=== PATIENT | female | born 2000 | race Caucasian/White ===

== ENCOUNTER 2022-12-24 11:29 | Outpatient (OUT) | payer OTHER, SELFPAY ==
[2022-12-24 11:48] VITALS: BP 129/70; PULSE 85; RESP 18
== END 2022-12-24 12:15 | disposition home or self-care (01) ==
LOC: FBCO 11:30 → FBC 11:32
PROVIDERS: PCP Obstetrics & Gynecology; Visit Provider Obstetrics & Gynecology
DX: O36.63X0 Maternal care for excessive fetal growth, third trimester, not applicable or unspecified (principal); Z3A.00 Weeks of gestation of pregnancy not specified
CPT/HCPCS: 59412

== ENCOUNTER 2022-12-24 11:31 | Outpatient (OUT) | payer OTHER, SELFPAY ==
--- NOTE | 2022-12-24 11:34 | US_ITS ---
[address] [address] Patient Name: VINNY HERRERA MRN: [id number] date: 2000 Sex: F Assigned Patient Location: [place] [facility]ion/Order Number: [id number] Exam Date: 12/24/2022 11:50 Report Date: 12/26/2022 10:36 At the request of: BRITT HOLDER Procedure: US OB BPP w non-stress EXAM: US OB BPP w non-stress HISTORY: LARGE FOR GESTATIONAL AGE O36.60X0 COMPARISON: Ultrasound biophysical 12/17/2022 TECHNIQUE: FINDINGS: BREATHING MOVEMENTS: 2.0 GROSS BODY MOVEMENTS: 2.0 TONE: 2.0 QUALITATIVE AMNIOTIC FLUID VOLUME: 2.0 PRESENTATION: CEPHALIC HEART RATE: 142.9 bpm bpm. AMNIOTIC FLUID VOLUME: 17.2 cm GESTATIONAL AGE: 35 weeks 2 days CONCLUSION: Total biophysical profile score 8.0. Electronically authenticated by: LUIS ALFREDO GRANT Date: 12/26/2022 10:36
== END 2022-12-24 11:32 ==
LOC: US 11:33
PROVIDERS: PCP Obstetrics & Gynecology; Visit Provider Obstetrics & Gynecology
DX: O36.63X0 Maternal care for excessive fetal growth, third trimester, not applicable or unspecified (principal); Z3A.00 Weeks of gestation of pregnancy not specified
CPT/HCPCS: 59412; 76818

== ENCOUNTER 2022-12-28 17:44 | Outpatient (OUT) | payer OTHER, SELFPAY ==
[2022-12-28 18:13] VITALS: BP 129/72; PULSE 90
== END 2022-12-28 18:37 | disposition home or self-care (01) ==
LOC: FBC 18:35 → FBCO 12-29 08:45 → FBC 12-29 08:46
PROVIDERS: PCP Obstetrics & Gynecology; Visit Provider Obstetrics & Gynecology
DX: O36.60X0 Maternal care for excessive fetal growth, unspecified trimester, not applicable or unspecified (principal)
CPT/HCPCS: 59025

== ENCOUNTER 2022-12-28 17:45 | Outpatient (OUT) | payer OTHER, SELFPAY ==
[2022-12-28 18:19] VITALS: BP 129/72; PULSE 90; RESP 18; TEMP 36.9
== END 2022-12-28 18:37 ==
LOC: FBCO 17:48
PROVIDERS: PCP Obstetrics & Gynecology; Visit Provider Obstetrics & Gynecology
DX: O36.60X0 Maternal care for excessive fetal growth, unspecified trimester, not applicable or unspecified (principal); O24.419 Gestational diabetes mellitus in pregnancy, unspecified control; Z3A.00 Weeks of gestation of pregnancy not specified
CPT/HCPCS: 59025

== ENCOUNTER 2022-12-31 11:13 | Outpatient (OUT) | payer OTHER, SELFPAY ==
--- NOTE | 2022-12-31 11:15 | US_ITS ---
[address] [address] Patient Name: VINNY HERRERA MRN: [id number] date: 2000 Sex: F Assigned Patient Location: [facility] Current Patient Location: Accession/Order Number: [id number] Exam Date: 12/31/2022 11:14 Report Date: 01/02/2023 15:32 At the request of: BRITT HOLDER Procedure: US OB BPP w non-stress EXAMINATION: US OB BPP w non-stress HISTORY: O36.60X0 LGA COMPARISON: Ultrasound biophysical profile 12/24/2022 TECHNIQUE: Ultrasound biophysical profile was performed in the radiology department. BREATHING MOVEMENTS: 2.0 GROSS BODY MOVEMENTS: 2.0 TONE: 2.0 QUALITATIVE AMNIOTIC FLUID VOLUME: 2.0 PRESENTATION: CEPHALIC HEART RATE: 132.4 bpm bpm. AMNIOTIC FLUID VOLUME: 21.3 cm GESTATIONAL AGE: 36 weeks 2 days CONCLUSION: 1. Total biophysical profile score 8.0. 2. Well distended, prominent urinary bladder 3.9 cm in diameter. Electronically authenticated by: LUIS ALFREDO GRANT Date: 01/02/2023 15:32
[2022-12-31 11:41] VITALS: BP 122/78; PULSE 93
== END 2022-12-31 12:04 | disposition home or self-care (01) ==
LOC: US 11:14 → FBC 11:16
PROVIDERS: PCP Obstetrics & Gynecology; Visit Provider Obstetrics & Gynecology
DX: O36.63X0 Maternal care for excessive fetal growth, third trimester, not applicable or unspecified (principal); Z3A.36 36 weeks gestation of pregnancy
CPT/HCPCS: 59025; 76818

== ENCOUNTER 2023-01-03 15:00 | Outpatient (REF) | payer OTHER, SELFPAY | END 2023-01-03 15:01 | disposition home or self-care (01) | LOC: LAB 15:00 | PROVIDERS: Visit Provider Obstetrics & Gynecology | DX: Z34.93 Encounter for supervision of normal pregnancy, unspecified, third trimester (principal) | CPT/HCPCS: 87081 ==

== ENCOUNTER 2023-01-04 17:56 | Outpatient (OUT) | payer OTHER, SELFPAY ==
[2023-01-04 18:09] VITALS: BP 121/60; PULSE 79
== END 2023-01-04 18:58 | disposition home or self-care (01) ==
LOC: FBCO 17:56 → FBC 17:57
PROVIDERS: Visit Provider Obstetrics & Gynecology
DX: O36.60X0 Maternal care for excessive fetal growth, unspecified trimester, not applicable or unspecified (principal)
CPT/HCPCS: 59025

== ENCOUNTER 2023-01-07 | Outpatient (OUT) | payer OTHER, SELFPAY ==
--- NOTE | 2023-01-07 11:17 | US_ITS ---
[address] [address] Patient Name: VINNY HERRERA MRN: [id number] date: 2000 Sex: F Assigned Patient Location: [facility] Current Patient Location: [place] Accession/Order Number: [id number] Exam Date: 01/07/2023 11:17 Report Date: 01/09/2023 07:13 At the request of: BRITT HOLDER Procedure: US OB growth EXAMINATION: US OB growth HISTORY: LGA COMPARISON: 12/17/2022. 12/11/2019. FINDINGS: Padilla intrauterine gestation presentation: Cephalic Amniotic fluid volume: 18.9 cm, normal. Largest fluid pocket 8.2 cm Heart rate: 44 bpm BPD: 8.7 cm, 35 weeks 1 day, 14% Abdominal circumference: 32.4 cm, 36 weeks 5 days, 15% Abdominal circumference: 36.0 cm, 20 weeks 0 days, greater than 97% Femur length: 7.3 cm, 37 weeks 3 days, 55% Estimated weight: 7 lbs. 11 oz., 84% Clinical age: 37 weeks 2 days Ultrasound JOCELIN: 01/26/2023 Ultrasound age: 37 weeks 2 days Ultrasound JOCELIN: 01/26/2023 IMPRESSION: Abdominal circumference greater than the 97th percentile Estimated weight at the 84th percentile Electronically authenticated by: YELENA CARLOS Date: 01/09/2023 07:13
--- NOTE | 2023-01-07 11:17 | US_ITS ---
[address] [address] Patient Name: VINNY HERRERA MRN: [id number] date: 2000 Sex: F Assigned Patient Location: [facility] [place] [facility] [place]/Order Number: [id number] Exam Date: 01/07/2023 11:17 Report Date: 01/09/2023 07:11 At the request of: BRITT HOLDER Procedure: US OB BPP w non-stress EXAMINATION: US OB BPP w non-stress HISTORY: LGA COMPARISON: No relevant comparison available. TECHNIQUE: Ultrasound biophysical profile was performed in the radiology department. FINDINGS: BREATHING MOVEMENTS: 2.0 GROSS BODY MOVEMENTS: 2.0 TONE: 2.0 QUALITATIVE AMNIOTIC FLUID VOLUME: 2.0 PRESENTATION: CEPHALIC HEART RATE: 137.1 bpm H.B./min AMNIOTIC FLUID VOLUME: 19.7 cm cm GESTATIONAL AGE: 37 weeks 2 days CONCLUSION: Total biophysical profile score: 8.0 Electronically authenticated by: YELENA CARLOS Date: 01/09/2023 07:11
[2023-01-07 12:07] VITALS: BP 132/76; PULSE 99
== END 2023-01-07 12:28 | disposition home or self-care (01) ==
LOC: US 03:51 → FBC 11:14
PROVIDERS: Visit Provider Obstetrics & Gynecology
DX: O36.63X0 Maternal care for excessive fetal growth, third trimester, not applicable or unspecified (principal); Z3A.37 37 weeks gestation of pregnancy
CPT/HCPCS: 59025; 76816; 76818

== ENCOUNTER 2023-01-11 11:14 | Outpatient (OUT) | payer OTHER, SELFPAY ==
[2023-01-11 11:23] VITALS: BP 132/85; PULSE 88
[2023-01-11 11:42] VITALS: BP 127/82; PULSE 84
[2023-01-11 12:16] VITALS: BP 129/82; PULSE 90
[2023-01-11 12:26] LABS: Bilirubin Urine NEGATIVE (NEGATIVE); Blood Urine NEGATIVE (NEGATIVE); Clarity Urine CLEAR (CLEAR); Color Urine LT. YELLOW (YELLOW); Glucose Urine UA NEGATIVE (NEGATIVE); Ketones Urine NEGATIVE (NEGATIVE); Leukocyte Esterase Urine SMALL (NEGATIVE); Nitrite Urine NEGATIVE (NEGATIVE); Protein Urine NEGATIVE (NEG/TRACE); Specific Gravity Urine <=1.005 (1.005-1.025); Urobilinogen Urine 0.2 EU/dL (0.2-1.0)
[2023-01-11 12:41] LABS: Bacteria Urine SMALL #/HPF (NONE SEEN); Crystals Seen? None Seen #/HPF (None Seen); Mucus Urine NONE SEEN (NONE SEEN); Squamous Epithelial Cell Urine FEW #/LPF (NONE/RARE)
[2023-01-11 12:42] LABS: Cast Seen? NONE SEEN #/LPF (NONE SEEN); Sperm Urine SEEN; Urine Culture Indicated YES
== END 2023-01-11 12:42 | disposition home or self-care (01) ==
LOC: FBCO 11:16 → FBC 11:17 → FBCO 11:26 → FBC 12:01
PROVIDERS: Visit Provider Obstetrics & Gynecology
DX: O36.63X0 Maternal care for excessive fetal growth, third trimester, not applicable or unspecified (principal)
CPT/HCPCS: 59025; 81001; 87086

== ENCOUNTER 2023-01-14 11:00 | Outpatient (OUT) | payer OTHER, SELFPAY ==
--- NOTE | 2023-01-14 11:30 | US_ITS ---
[address] [address] Patient Name: VINNY HERRERA MRN: [id number] date: 2000 Sex: F Assigned Patient Location: US Current Patient Location: [place] Accession/Order Number: [id number] Exam Date: 01/14/2023 11:30 Report Date: 01/16/2023 07:56 At the request of: BRITT HOLDER Procedure: US OB BPP w non-stress EXAMINATION: US OB BPP w non-stress HISTORY: LARGE FOR GESTATIONAL AGE O36.60X0 COMPARISON: No relevant comparison available. TECHNIQUE: Ultrasound biophysical profile was performed in the radiology department. FINDINGS: BREATHING MOVEMENTS: 2.0 GROSS BODY MOVEMENTS: 2.0 TONE: 2.0 QUALITATIVE AMNIOTIC FLUID VOLUME: 2.0 PRESENTATION: CEPHALIC HEART RATE: 150.8 bpm H.B./min AMNIOTIC FLUID VOLUME: 18.6 cm cm GESTATIONAL AGE: 38 weeks 2 days CONCLUSION: Total biophysical profile score: 8.0 Electronically authenticated by: YELENA CARLOS Date: 01/16/2023 07:56
[2023-01-14 12:12] VITALS: BP 134/85; PULSE 96
== END 2023-01-14 12:42 | disposition home or self-care (01) ==
LOC: US 11:30 → FBC 11:31
PROVIDERS: Visit Provider Obstetrics & Gynecology
DX: O36.60X0 Maternal care for excessive fetal growth, unspecified trimester, not applicable or unspecified (principal)
CPT/HCPCS: 59025; 76818

== ENCOUNTER 2023-01-16 14:47 | Outpatient (OUT) | payer OTHER, SELFPAY ==
[2023-01-16 15:23] VITALS: BP 136/85; PULSE 100
== END 2023-01-16 15:30 | disposition home or self-care (01) ==
LOC: FBCO 14:48 → FBC 14:50
PROVIDERS: Visit Provider Obstetrics & Gynecology
DX: O36.60X0 Maternal care for excessive fetal growth, unspecified trimester, not applicable or unspecified (principal)
CPT/HCPCS: 59025

== ENCOUNTER 2023-01-18 11:45 | Outpatient (OUT) | payer OTHER, SELFPAY ==
[2023-01-18 11:57] VITALS: BP 140/82; PULSE 83
[2023-01-18 12:25] VITALS: BP 139/83; PULSE 92
== END 2023-01-18 12:28 | disposition home or self-care (01) ==
LOC: FBCO 11:51 → FBC 11:52
PROVIDERS: Visit Provider Obstetrics & Gynecology
DX: O36.63X0 Maternal care for excessive fetal growth, third trimester, not applicable or unspecified (principal); Z3A.00 Weeks of gestation of pregnancy not specified
CPT/HCPCS: 59025

== ENCOUNTER 2023-01-19 05:13 | Inpatient (IN) | payer OTHER, SELFPAY ==
[2023-01-19] VITALS (89 sets, daily range): BP systolic 125–155; BP diastolic 63–100; PULSE 67–111; RESP 16–18; TEMP 36.3–36.9; O2SAT 98
[2023-01-19 05:52] LABS: Glucometer 141 mg/dL (74-106)
[2023-01-19 06:00] LABS: Hematocrit 29.3 % (36.0-48.0); Hemoglobin 9.5 g/dL (12.0-16.0); Mean Corpuscular HGB Conc 32.4 g/dL (29.9-35.2); Mean Corpuscular Hemoglobin 26.8 pg (26.7-34.0); Mean Corpuscular Volume 82.5 fL (81.0-99.0); Mean Platelet Volume 9.1 fL (9.5-13.5); Platelet Count 427 10^3/uL (150-450); Red Blood Count 3.55 10^6/uL (4.20-5.40); Red Cell Distribution Width 14.1 % (11.0-15.0); White Blood Count 10.2 10^3/uL (4.0-11.0)
[2023-01-19 06:29] LABS: Amphetamine Screen Urine NEGATIVE (NEGATIVE); Barbiturates Screen Urine NEGATIVE (NEGATIVE); Benzodiazepines Screen Urine NEGATIVE (NEGATIVE); Cannabinoid Screen Urine NEGATIVE (NEGATIVE); Cocaine Screen Urine NEGATIVE (NEGATIVE); Methadone Screen Urine NEGATIVE (NEGATIVE); Methamphetamines Screen Urine NEGATIVE (NEGATIVE); Opiate Screen Urine NEGATIVE (NEGATIVE); Oxycodone Screen Urine NEGATIVE (NEGATIVE); Phencyclidine Screen Urine NEGATIVE (NEGATIVE); Tricyclic Antidepressant Urine NEGATIVE (NEGATIVE)
[2023-01-19 06:30] LABS: Buprenorphine Screen Urine NEGATIVE (NEGATIVE)
[2023-01-19] MEDS: OXYTOCIN 10 UNIT in 0.9 % SODIUM CHLORIDE 500 ML 6.012 UNIT IV (06:36)
[2023-01-19] MEDS: 0.9 % SODIUM CHLORIDE 1,000 ML 1000 ML IV (06:37)
--- NOTE | 2023-01-19 11:47 | OP_ITS ---
OPERATION DATE: ??01/19/2023 PROCEDURE:? Primary low transverse section. PREOPERATIVE DIAGNOSIS:? 1.? Intrauterine at 39 weeks. 2.? Failure to dilate. 3.? Failure to induce. POSTOPERATIVE DIAGNOSIS: 1.? Intrauterine at 39 weeks. 2.? Failure to dilate. 3.? Failure to induce. ANESTHESIA:? Epidural with Duramorph. SURGEON:? Mukul Foy D.O. MEAT PUMPER:? JOVAN Bangura URINE OUTPUT:? Yellow and clear. BLOOD LOSS:? 700 mL. FINDINGS:? Viable female.? Apgars and weight unknown at this time. SPECIMEN:? Placenta. PROCEDURE:? Patient was taken back to the Operating Room where she was given a spinal anesthesia with Duramorph without difficulty. She was prepped and draped in the normal sterile fashion. A Pfannenstiel skin incision was then made 2 cm above the symphysis pubis and carried down to underlying rectus fascia using a Bovie. The fascia was incised in the midline and extended laterally using Yusuf scissors. Two Jyoti clamps were placed on the superior aspect of the fascia and dissected off the underlying rectus muscles. The same was performed on the inferior aspect as well. The muscles were then in the midline. Peritoneum was identified and entered bluntly. The peritoneum was then extended superiorly and inferiorly with good visualization of the bladder. The bladder blade was inserted. A low transverse incision was made on the patient's uterus and extended laterally digitally. The was then delivered atraumatically after the bladder blade was removed in the cephalic position. The cord was clamped and cut. Cord blood was obtained. The was handed off to awaiting team. The patient's placenta was spontaneously delivered. The uterus was then exteriorized. The uterus was cleared of all clots and debris. The bladder blade was reinserted. The patient's uterine incision was closed using #0 Vicryl in a running lock fashion. Excellenthemostasis was assured. The uterus was then returned to the patient's abdomen. The patient's abdomen was copiously irrigated using warm saline. Peritoneal gutters were cleared of all clots and debris. Again excellent hemostasis was assured. The patient's peritoneum was closed using 3-0 Vicryl in a running fashion. The patient's fascia was closed using #0 Vicryl in a running fashion. The patient's skin was closed using 4-0 Vicryl subcuticularly. The patient tolerated the procedure well. Sponge, lap, and needle counts were correct x2. The patient was taken to the Recovery Room in stable condition. ROZINA
[2023-01-19] MEDS: 0.9 % SODIUM CHLORIDE 1,000 ML 125 ML IV (13:30)
[2023-01-19] MEDS: NALBUPHINE HCL 10 MG/ML AMPULE IV (15:59)
[2023-01-19] MEDS: ONDANSETRON 4 MG RAPDIS TABLET SL (16:04)
--- NOTE | 2023-01-19 19:27 | W.PC.ACHO ---
Registration Status: ADM IN Primary Language: Bahraini Preferred Language: Bahraini Active Medications Generic Name Dose Route Start Last Admin Trade Name Nikoq PRN Reason Stop Dose Admin Carboprost Tromethamine 250 mcg 01/19/23 05:20 Carboprost Tromethamine 250 Mcg/Ml 1 Ml Vial IM Q15M PRN Bleeding Diphenhydramine HCl 25 mg 01/19/23 12:54 Diphenhydramine Hcl 50 Mg/Ml (1ml) Vial IV Q6H PRN Itching Ephedrine Sulfate 5 mg 01/19/23 12:54 Ephedrine Sulfate 50 Mg/Ml Vial IV Q5M PRN Blood Pressure - Low Fentanyl Citrate 100 mcg 01/19/23 12:54 Fentanyl Citrate/Pf 100 Mcg/2 Ml Vial EPIDURAL Q4H PRN Pain Sodium Chloride 1,000 mls @ 125 mls/hr 01/19/23 05:30 01/19/23 13:30 Sodium Chloride 0.9% 1,000 Ml IV 125 mls/hr .Q8H BRAIN Administration Oxytocin 10 unit/ Sodium 501 mls @ 6.012 mls/hr 01/19/23 05:30 01/19/23 06:36 Chloride IV 2 milliunit/min Q24H BRAIN 6.012 mls/hr Administration 2 MILLIUNIT/MIN Ropivacaine/Sodium Chloride 400 mg in 200 mls @ 6 mls/hr 01/19/23 13:00 Naropin 0.2% 400 Mg/200 Ml Bag EPIDURAL Q24H BRAIN Lidocaine 5 ml 01/19/23 05:20 Lidocaine Viscous 2% 15 Ml Topical Solution TOPICAL Q8H PRN Pain Lidocaine 1 ml 01/19/23 05:44 Lidocaine Hcl 1% 200 Mg/20 Ml Mdv INJ DIRECTED PRN Pain Lidocaine 5 ml 01/19/23 12:54 Lidocaine Hcl 2% Pf 100 Mg/5 Ml Vial INJ Q1H PRN Pain Methylergonovine Maleate 0.2 mg 01/19/23 05:20 Methylergonovine Maleate 0.2 Mg Tablet PO Q4H PRN Uterine Contractility/Contract Methylergonovine Maleate 0.2 mg 01/19/23 05:20 Methylergonovine Maleate 0.2 Mg/Ml Ampule IM ONCE PRN Uterine Contractility/Contract Misoprostol 600 mcg 01/19/23 05:20 Misoprostol 100 Mcg Tablet PO ONCE PRN Uterine Bleeding Misoprostol 800 mcg 01/19/23 05:20 Misoprostol 100 Mcg Tablet SL ONCE PRN Uterine Bleeding Misoprostol 1,000 mcg 01/19/23 05:20 Misoprostol 100 Mcg Tablet [place] ONCE PRN Uterine Bleeding Nalbuphine HCl 10 mg 01/19/23 05:20 01/19/23 15:59 Nalbuphine Hcl 10 Mg/Ml Ampule IV 01/20/23 05:21 10 mg Q3H PRN Administration Pain Naloxone HCl 0.4 mg 01/19/23 12:54 Naloxone Hcl 0.4 Mg/Ml Vial IV ONCE PRN respiratory depression Ondansetron HCl 4 mg 01/19/23 05:20 Ondansetron Pf 4 Mg/2 Ml Vial IV Q6H PRN Nausea And Vomiting Ondansetron HCl 4 mg 01/19/23 05:20 01/19/23 16:04 Ondansetron 4 Mg Rapdis Tablet SL 4 mg Q6H PRN Administration Nausea And Vomiting Oxytocin 10 unit 01/19/23 05:20 Oxytocin 100 Unit/10 Ml Vial IM ONCE PRN Uterine Bleeding Diet Category Date Time Status Clear Liquid Diet Diet 01/19/23 Breakfast Active IV Insertion/Site Date of IV Line Insertion [18g 01/19/23 right Forearm] IV Insertion Time [18g right 05:35 Forearm] Neurology Patient orientation (short person,place,time,situation list) [place] coma scale total score 15 Catheter Urinary Catheter Date of 01/19/23 Insertion [Urethral] Urinary Catheter Time of 19:00 Insertion [Urethral]
[2023-01-19] MEDS: CEFAZOLIN SODIUM/DEXTROSE,ISO 2 GM/50 ML PIGGYBACK IV (22:49)
[2023-01-19] MEDS: LACTATED RINGER'S SOLUTION 1,000 ML 125 ML IV ×2 (23:15→23:45)
--- NOTE | 2023-01-19 23:47 | PM.OBPRCCS ---
Procedure Pre-op/Post-op diagnoses: Pre-Op/Post-Op Diagnoses Operation Date: 01/19/23 22:40 <No data on this case meets the specified criteria> Procedure: Procedures Operation Date: 01/19/23 22:40 Actual Procedure Side Surgeon p WITH DELIVERY OF VIABLE BABY GIRL Not Applicable Mukul Foy DO Underwriting Technician: Araceli Aguirre Estimated blood loss (mL): 700 Disposition: floor Anesthesia type: Epidural
[2023-01-20] VITALS (51 sets, daily range): BP systolic 116–160; BP diastolic 61–100; PULSE 69–120; RESP 14–24; TEMP 36.6–37.3; O2SAT 96–98
--- NOTE | 2023-01-20 00:02 | PC.NURSE ---
Patient arrived to OR with fu catheter in place. During case it is noted there was 700cc of clear/yellow urine in he bad. Patient is returning to [facility] with catheter in place.
[2023-01-20] MEDS: MEPERIDINE HCL/PF 25 MG/ML VIAL (00:21)
[2023-01-20] MEDS: KETOROLAC TROMETHAMINE 30 MG/ML VIAL IVP ×4 (00:25→18:02)
[2023-01-20] MEDS: CEFAZOLIN SODIUM/DEXTROSE,ISO 2 GM/50 ML PIGGYBACK IV (04:56)
[2023-01-20 06:00] LABS: Basophils Percent Auto 0.1 % (0.2-2.0); Eosinophils Percent Auto 0.1 % (0.9-7.0); Immature Granulocytes Abs Auto 0.05 10^3/uL (0.00-0.03); Immature Granulocytes Pct Auto 0.4 % (0.0-0.5); Lymphocytes Absolute Auto 1.5 10^3/uL (1.2-3.8); Lymphocytes Percent Auto 11.8 % (20.5-60.0); Mean Corpuscular HGB Conc 32.2 g/dL (29.9-35.2); Mean Corpuscular Hemoglobin 26.7 pg (26.7-34.0); Mean Corpuscular Volume 82.9 fL (81.0-99.0); Mean Platelet Volume 9.3 fL (9.5-13.5); Monocytes Absolute Auto 0.8 10^3/uL (0.3-0.8); Monocytes Percent Auto 6.1 % (1.7-12.0); Neutrophils Absolute Auto 10.5 10^3/uL (1.4-6.5); Neutrophils Percent Auto 81.5 % (43.0-75.0); Platelet Count 310 10^3/uL (150-450); Red Blood Count 2.51 10^6/uL (4.20-5.40); Red Cell Distribution Width 14.3 % (11.0-15.0); White Blood Count 12.8 10^3/uL (4.0-11.0)
[2023-01-20 06:11] LABS: Hematocrit 20.8 % (36.0-48.0); Hemoglobin 6.7 g/dL (12.0-16.0)
[2023-01-20] MEDS: ONDANSETRON PF 4 MG/2 ML VIAL IV (09:04)
[2023-01-20] MEDS: DOCUSATE SODIUM 100 MG CAPSULE PO ×2 (10:48→22:47)
--- NOTE | 2023-01-20 12:36 | PC.NURSE ---
blood continues to infuse at rate of 220ml/hr. No distress in noted. Pt medicated with Torodol for incisional pain. Assisted to turn slightly to left side for increased comfort. VS stable. Pt dozes easily after position change.
--- NOTE | 2023-01-20 12:52 | PC.NURSE ---
Compression cuffs in place and active
--- NOTE | 2023-01-20 21:34 | W.PC.ACHO ---
Registration Status: ADM IN Primary Language: Macedonian Preferred Language: Macedonian Active Medications Generic Name Dose Route Start Last Admin Trade Name Freq PRN Reason Stop Dose Admin Al Hydroxide/Mg Hydroxide 2,400 mg 01/19/23 23:44 Magnesium Hydroxide 2,400 Mg/10 Ml Oral.Susp PO Q6H PRN Dyspepsia Carboprost Tromethamine 250 mcg 01/19/23 05:20 Carboprost Tromethamine 250 Mcg/Ml 1 Ml Vial IM Q15M PRN Bleeding Diphenhydramine HCl 25 mg 01/19/23 23:44 Diphenhydramine Hcl 50 Mg/Ml (1ml) Vial IV 01/20/23 23:46 Q6H PRN Itching Diphenhydramine HCl 25 mg 01/19/23 12:54 Diphenhydramine Hcl 50 Mg/Ml (1ml) Vial IV Q6H PRN Itching Docusate Sodium 100 mg 01/20/23 09:00 01/20/23 10:48 Docusate Sodium 100 Mg Capsule PO 100 mg BID BRAIN Administration Enoxaparin Sodium 40 mg 01/20/23 12:00 01/20/23 17:44 Enoxaparin Sodium 40 Mg/0.4 Ml Syringe SUBQ Not Given Q24H BRAIN Ephedrine Sulfate 5 mg 01/19/23 12:54 Ephedrine Sulfate 50 Mg/Ml Vial IV Q5M PRN Blood Pressure - Low Fentanyl Citrate 100 mcg 01/19/23 12:54 Fentanyl Citrate/Pf 100 Mcg/2 Ml Vial EPIDURAL Q4H PRN Pain Sodium Chloride 1,000 mls @ 125 mls/hr 01/19/23 22:30 Sodium Chloride 0.9% 1,000 Ml IV .Q8H BRAIN Lactated Ringer's 1,000 mls @ 125 mls/hr 01/19/23 23:45 01/19/23 23:15 Lactated Ringers IV 125 mls/hr .Q8H BRAIN Administration Lactated Ringer's 1,000 mls @ 125 mls/hr 01/19/23 23:45 01/19/23 23:45 Lactated Ringers IV 125 mls/hr .Q8H BRAIN Administration Sodium Chloride 1,000 mls @ 125 mls/hr 01/19/23 23:45 Sodium Chloride 0.9% 1,000 Ml IV .Q8H BRAIN Sodium Chloride 1,000 mls @ 125 mls/hr 01/19/23 05:30 01/19/23 13:30 Sodium Chloride 0.9% 1,000 Ml IV 125 mls/hr .Q8H [facility] Administration Oxytocin 10 unit/ Sodium 501 mls @ 6.012 mls/hr 01/19/23 05:30 01/19/23 06:36 Chloride IV 2 milliunit/min Q24H BRAIN 6.012 mls/hr Administration 2 MILLIUNIT/MIN Ropivacaine/Sodium Chloride 400 mg in 200 mls @ 6 mls/hr 01/19/23 13:00 Naropin 0.2% 400 Mg/200 Ml Bag EPIDURAL Q24H BRAIN Ibuprofen 800 mg 01/19/23 23:44 Ibuprofen 400 Mg Tablet PO Q8H PRN Pain Ketorolac Tromethamine 30 mg 01/19/23 23:44 01/20/23 18:02 Ketorolac Tromethamine 30 Mg/Ml Vial IVP 01/21/23 23:45 30 mg Q6H PRN Administration Pain Lidocaine 5 ml 01/19/23 05:20 Lidocaine Viscous 2% 15 Ml Topical Solution TOPICAL Q8H PRN Pain Lidocaine 1 ml 01/19/23 05:44 Lidocaine Hcl 1% 200 Mg/20 Ml Mdv INJ DIRECTED PRN Pain Lidocaine 5 ml 01/19/23 12:54 Lidocaine Hcl 2% Pf 100 Mg/5 Ml Vial INJ Q1H PRN Pain Methylergonovine Maleate 0.2 mg 01/19/23 05:20 Methylergonovine Maleate 0.2 Mg Tablet PO Q4H PRN Uterine Contractility/Contract Methylergonovine Maleate 0.2 mg 01/19/23 05:20 Methylergonovine Maleate 0.2 Mg/Ml Ampule IM ONCE PRN Uterine Contractility/Contract Misoprostol 600 mcg 01/19/23 05:20 Misoprostol 100 Mcg Tablet PO ONCE PRN Uterine Bleeding Misoprostol 800 mcg 01/19/23 05:20 Misoprostol 100 Mcg Tablet SL ONCE PRN Uterine Bleeding Misoprostol 1,000 mcg 01/19/23 05:20 Misoprostol 100 Mcg Tablet DC ONCE PRN Uterine Bleeding Nalbuphine HCl 10 mg 01/19/23 23:44 Nalbuphine Hcl 10 Mg/Ml Ampule IV 06/30/23 23:46 Q3H PRN Itching Naloxone HCl 0.4 mg 01/19/23 12:54 Naloxone Hcl 0.4 Mg/Ml Vial IV ONCE PRN respiratory depression Ondansetron HCl 4 mg 01/19/23 23:44 Ondansetron Pf 4 Mg/2 Ml Vial IV Q6H PRN Nausea And Vomiting Ondansetron HCl 4 mg 01/19/23 05:20 01/20/23 09:04 Ondansetron Pf 4 Mg/2 Ml Vial IV 4 mg Q6H PRN Administration Nausea And Vomiting Ondansetron HCl 4 mg 01/19/23 05:20 01/19/23 16:04 Ondansetron 4 Mg Rapdis Tablet SL 4 mg Q6H PRN Administration Nausea And Vomiting Oxycodone/Acetaminophen 2 each 01/19/23 23:44 01/20/23 02:24 Oxycodone Hcl/Acetaminophen 5-325 Mg Tablet PO 2 each Q4H PRN Administration Pain Oxycodone/Acetaminophen 1 each 01/19/23 23:44 01/20/23 17:08 Oxycodone Hcl/Acetaminophen 5-325 Mg Tablet PO 1 each Q4H PRN Administration Pain Oxytocin 10 unit 01/19/23 05:20 Oxytocin 100 Unit/10 Ml Vial IM ONCE PRN Uterine Bleeding Senna 17.2 mg 01/19/23 20:00 Sennosides 8.6 Mg Tablet PO QHS PRN Constipation Sertraline HCl 25 mg 01/20/23 09:00 Sertraline Hcl 50 Mg Tablet PO QD BRAIN Simethicone 80 mg 01/19/23 23:44 Simethicone 80 Mg Tab.Chew PO QID PRN Abdominal Distention Diet Category Date Time Status Regular Consistency Diet Diet 01/20/23 Breakfast Active Neurology Randolph coma scale total score 15 Randolph coma scale total score 15 Respiratory Lung sounds [Throughout] clear Lung sounds [Throughout] clear Lung sounds [Throughout] clear,Diminished Lung sounds [Throughout] clear Lung sounds [Throughout] clear Lung sounds [Throughout] clear Lung sounds [Throughout] clear Pulse Oximetry 98 Pulse Oximetry 98 Pulse Oximetry 97 Pulse Oximetry 97 Pulse Oximetry 97 Pulse Oximetry 96 Pulse Oximetry 96 Pulse Oximetry 96 Pulse Oximetry 97 Pulse Oximetry 96 Pulse Oximetry 97 Pulse Oximetry 96 Pulse Oximetry 96 Pulse Oximetry 97 Pulse Oximetry 97 Pulse Oximetry 97 Pulse Oximetry 98 Pulse Oximetry 98 Oxygen Delivery Method Room Air Oxygen Delivery Method Room Air Oxygen Delivery Method Room Air Oxygen Delivery Method Room Air Oxygen Delivery Method Room Air Oxygen Delivery Method Room Air Oxygen Delivery Method Room Air Oxygen Delivery Method Room Air Cardiology Heart Sounds Regular Heart Sounds Regular Bowels Date of Last Bowel Movement 01/19/23 Date of Last Bowel Movement 01/19/23
[2023-01-21] VITALS (7 sets, daily range): BP systolic 124–139; BP diastolic 68–83; PULSE 74–90; RESP 16–18; TEMP 36.6–37.1
[2023-01-21] MEDS: KETOROLAC TROMETHAMINE 30 MG/ML VIAL IVP ×4 (00:25→21:02)
--- NOTE | 2023-01-21 06:51 | PM.OBPN ---
OB - PN: Subj Subjective Patient comments: no complaints and pain well controlled Exam Constitutional Vital Signs - 24 hr 01/20/23 08:44 01/20/23 09:00 01/20/23 11:15 Temperature 98.1 F 98.4 F 98.5 F Pulse Rate 89 102 H 99 H Respiratory Rate 14 16 16 Blood Pressure 138/89 H 143/83 H 121/68 H Oxygen Delivery Method 01/20/23 10:00 01/20/23 11:00 01/20/23 11:29 Temperature 97.9 F 98.6 F 98.5 F Pulse Rate 102 H 99 H 94 H Respiratory Rate 16 18 18 Blood Pressure 138/78 H 132/82 H 124/78 H Oxygen Delivery Method Room Air Room Air 01/20/23 11:30 01/20/23 12:30 01/20/23 17:08 Temperature 98.5 F 98.3 F 98.1 F Pulse Rate 98 H Respiratory Rate 18 20 Blood Pressure 124/78 H 141/88 H Oxygen Delivery Method Room Air 01/20/23 08:38 01/20/23 09:07 01/20/23 09:15 Temperature Pulse Rate Respiratory Rate Blood Pressure 135/85 H 143/83 H 144/96 H Oxygen Delivery Method 01/20/23 09:30 01/20/23 09:45 01/20/23 10:00 Temperature Pulse Rate Respiratory Rate Blood Pressure 134/90 H 141/78 H 132/78 H Oxygen Delivery Method 01/20/23 10:15 01/20/23 10:30 01/20/23 10:45 Temperature Pulse Rate Respiratory Rate Blood Pressure 131/76 H 128/75 H 136/85 H Oxygen Delivery Method 01/20/23 11:00 01/20/23 11:15 01/20/23 11:30 Temperature Pulse Rate Respiratory Rate Blood Pressure 132/82 H 121/68 H 124/78 H Oxygen Delivery Method 01/20/23 11:45 01/20/23 12:00 01/20/23 12:15 Temperature Pulse Rate Respiratory Rate Blood Pressure 138/87 H 134/88 H 138/84 H Oxygen Delivery Method 01/20/23 12:30 01/20/23 12:45 01/20/23 13:00 Temperature Pulse Rate Respiratory Rate Blood Pressure 141/88 H 128/78 H 132/78 H Oxygen Delivery Method 01/20/23 13:15 01/20/23 13:30 01/20/23 13:45 Temperature Pulse Rate Respiratory Rate Blood Pressure 131/78 H 139/85 H 134/84 H Oxygen Delivery Method 01/20/23 14:00 01/20/23 14:15 01/20/23 14:30 Temperature Pulse Rate Respiratory Rate Blood Pressure 128/74 H 129/77 H 131/78 H Oxygen Delivery Method 01/20/23 14:45 01/20/23 15:00 01/20/23 15:15 Temperature Pulse Rate Respiratory Rate Blood Pressure 116/74 131/83 H 140/86 H Oxygen Delivery Method 01/20/23 15:30 01/20/23 15:45 01/20/23 16:00 Temperature Pulse Rate Respiratory Rate Blood Pressure 133/76 H 131/86 H 140/89 H Oxygen Delivery Method 01/20/23 16:15 01/20/23 21:12 01/20/23 20:55 Temperature 99.1 F Pulse Rate 107 H Respiratory Rate 20 16 Blood Pressure 139/78 H 116/61 Oxygen Delivery Method Room Air 01/20/23 20:55 01/21/23 00:08 Temperature 98.2 F Pulse Rate Respiratory Rate 16 Blood Pressure 116/61 124/68 H Oxygen Delivery Method Documenting provider has reviewed patient's vital signs: yes Common normals: no apparent distress Respiratory Common normals: normal respiratory effort and clear to auscultation bilaterally Cardio Common normals: regular rate and regular rhythm GI Common normals: Normal to inspection, nondistended, normoactive bowel sounds present and soft to palpation Common normals: no CVA tenderness Extremity Common normals: normal to inspection, no clubbing, cyanosis or edema and no calf tenderness OB - PN: A/P Plan - day: 2 Plan: routine postop care Time Spent with Patient Time: Total time spent is greater than 50% in coordination of care (as documented) at patient's floor/unit and/or counseling patient: Total time spent with greater than 50% in coordination of care (as documented) at patient's floor/unit and/or counseling patient: less than 15 minutes
[2023-01-21 07:02] LABS: Basophils Percent Auto 0.3 % (0.2-2.0); Eosinophils Absolute Auto 0.1 10^3/uL (0.0-0.7); Eosinophils Percent Auto 0.8 % (0.9-7.0); Hemoglobin 7.9 g/dL (12.0-16.0); Immature Granulocytes Abs Auto 0.06 10^3/uL (0.00-0.03); Immature Granulocytes Pct Auto 0.5 % (0.0-0.5); Lymphocytes Absolute Auto 1.9 10^3/uL (1.2-3.8); Lymphocytes Percent Auto 17.3 % (20.5-60.0); Mean Corpuscular HGB Conc 33.2 g/dL (29.9-35.2); Mean Corpuscular Hemoglobin 27.5 pg (26.7-34.0); Mean Corpuscular Volume 82.9 fL (81.0-99.0); Mean Platelet Volume 9.1 fL (9.5-13.5); Monocytes Percent Auto 9.1 % (1.7-12.0); Platelet Count 319 10^3/uL (150-450); Red Blood Count 2.87 10^6/uL (4.20-5.40); Red Cell Distribution Width 14.5 % (11.0-15.0); White Blood Count 11.1 10^3/uL (4.0-11.0)
[2023-01-21 07:15] LABS: Hematocrit 23.8 % (36.0-48.0)
[2023-01-21] MEDS: DOCUSATE SODIUM 100 MG CAPSULE PO ×2 (10:08→21:03)
--- NOTE | 2023-01-21 12:46 | PC.NURSE ---
0935 Michel removed intact and marlo pad changed
--- NOTE | 2023-01-21 12:47 | PC.NURSE ---
0845 nursing with appropriate latch achieved
--- NOTE | 2023-01-21 12:49 | PC.NURSE ---
1130 Up to BR to void and pass gas, pericare reviewed-pt tolerates well without dizziness and ambulates steadily returning to bed, bed linens changed and medicated for pain 8
--- NOTE | 2023-01-21 12:53 | PC.NURSE ---
1215 pain 3, will try to nap after nursing baby prior to showering and ambulating
--- NOTE | 2023-01-21 14:13 | PC.NURSE ---
sleeping with spouse at bedside
[2023-01-21 18:19] LABS: Basophils Percent Auto 0.3 % (0.2-2.0); Eosinophils Absolute Auto 0.1 10^3/uL (0.0-0.7); Hematocrit 24.5 % (36.0-48.0); Immature Granulocytes Abs Auto 0.07 10^3/uL (0.00-0.03); Immature Granulocytes Pct Auto 0.6 % (0.0-0.5); Lymphocytes Absolute Auto 2.1 10^3/uL (1.2-3.8); Mean Corpuscular HGB Conc 32.7 g/dL (29.9-35.2); Mean Corpuscular Hemoglobin 27.4 pg (26.7-34.0); Mean Corpuscular Volume 83.9 fL (81.0-99.0); Monocytes Percent Auto 8.3 % (1.7-12.0); Neutrophils Absolute Auto 8.4 10^3/uL (1.4-6.5); Neutrophils Percent Auto 71.8 % (43.0-75.0); Platelet Count 324 10^3/uL (150-450); Red Blood Count 2.92 10^6/uL (4.20-5.40); Red Cell Distribution Width 14.5 % (11.0-15.0); White Blood Count 11.7 10^3/uL (4.0-11.0)
--- NOTE | 2023-01-21 20:05 | PC.NURSE ---
1505 Medicated with toradol and up to cherry ambulate. denies dizziness
--- NOTE | 2023-01-21 20:12 | PC.NURSE ---
1814 calls RN into room, c/o feeling dizzy and weak, states my arms and legs feel like noodles also c/o abd tenderness and assessed as noted, abd dressing removed and omid dry and intact, telephone call to Dr Foy and orders received, cbc drawn and pt medicated
--- NOTE | 2023-01-21 20:39 | PC.NURSE ---
Pt is finished showering
--- NOTE | 2023-01-22 07:26 | W.PC.ACHO ---
Registration Status: ADM IN Primary Language: Chadian Preferred Language: Chadian Active Medications Report given to Ananth Muñoz RN at 0715 Generic Name Dose Route Start Last Admin Trade Name Freq PRN Reason Stop Dose Admin Al Hydroxide/Mg Hydroxide 2,400 mg 01/19/23 23:44 Magnesium Hydroxide 2,400 Mg/10 Ml Oral.Susp PO Q6H PRN Dyspepsia Docusate Sodium 100 mg 01/20/23 09:00 01/21/23 21:03 Docusate Sodium 100 Mg Capsule PO 100 mg BID BRAIN Administration Enoxaparin Sodium 40 mg 01/20/23 12:00 01/22/23 00:08 Enoxaparin Sodium 40 Mg/0.4 Ml Syringe SUBQ Not Given Q24H BRAIN Lactated Ringer's 1,000 mls @ 125 mls/hr 01/19/23 23:45 01/19/23 23:45 Lactated Ringers IV 125 mls/hr .Q8H BRAIN Administration Sodium Chloride 1,000 mls @ 125 mls/hr 01/19/23 23:45 Sodium Chloride 0.9% 1,000 Ml IV .Q8H BRAIN Ibuprofen 800 mg 01/21/23 08:04 Ibuprofen 400 Mg Tablet PO Q8H PRN Pain Scale 1-3 Ondansetron HCl 4 mg 01/19/23 23:44 Ondansetron Pf 4 Mg/2 Ml Vial IV Q6H PRN Nausea And Vomiting Ondansetron HCl 4 mg 01/19/23 05:20 01/19/23 16:04 Ondansetron 4 Mg Rapdis Tablet SL 4 mg Q6H PRN Administration Nausea And Vomiting Oxycodone/Acetaminophen 2 each 01/19/23 23:44 01/22/23 03:53 Oxycodone Hcl/Acetaminophen 5-325 Mg Tablet PO 2 each Q4H PRN Administration Pain Oxycodone/Acetaminophen 1 each 01/19/23 23:44 01/20/23 17:08 Oxycodone Hcl/Acetaminophen 5-325 Mg Tablet PO 1 each Q4H PRN Administration Pain Senna 17.2 mg 01/19/23 20:00 Sennosides 8.6 Mg Tablet PO QHS PRN Constipation Sertraline HCl 25 mg 01/20/23 09:00 Sertraline Hcl 50 Mg Tablet PO QD BRAIN Simethicone 80 mg 01/19/23 23:44 Simethicone 80 Mg Tab.Chew PO QID PRN Abdominal Distention Neurology Vielka coma scale total score 15 Respiratory Lung sounds [Throughout] clear Bowels Bowel Pattern No Bowel Movement Date of Last Bowel Movement 01/19/23
[2023-01-22 07:55] VITALS: BP 121/76
[2023-01-22] MEDS: IBUPROFEN 400 MG TABLET 800 MG PO (08:48)
[2023-01-22] MEDS: DOCUSATE SODIUM 100 MG CAPSULE PO (08:48)
--- NOTE | 2023-01-22 11:26 | PM.OBPNL ---
Pelvic Exam Dilation (cm): 6 Effacement (%): 100 Contractions Monitor mode: External Contraction pattern: Irregular Contraction intensity: Moderate to Strong station: -2 Amniotic membrane status: Ruptured status: Category I
--- NOTE | 2023-01-22 11:28 | PM.OBPN ---
Exam Constitutional Vital Signs - 24 hr 01/21/23 18:00 01/21/23 22:20 01/21/23 17:43 Temperature 98.8 F 97.9 F Pulse Rate 74 90 Respiratory Rate 16 18 Blood Pressure 133/75 H Blood Pressure [Right Arm] 133/75 H 139/83 H 01/21/23 22:19 01/22/23 07:55 Temperature Pulse Rate Respiratory Rate Blood Pressure 139/83 H 121/76 H Blood Pressure [Right Arm] Documenting provider has reviewed patient's vital signs: yes Common normals: no apparent distress General appearance: cooperative and comfortable Orientation/consciousness: Yes awake HENMT Common normals: normocephalic Chest Common normals: inspection of chest normal Respiratory Common normals: normal respiratory effort Effort & inspection: able to speak in complete sentences Auscultation: clear to auscultation bilaterally Cardio Common normals: no JVD, regular rate and regular rhythm GI Common normals: Normal to inspection, nondistended, normoactive bowel sounds present Inspection: normal to inspection Common normals: no CVA tenderness OB/external & speculum: deferred Back & Pelvis Common normals: no CVA tenderness Extremity Common normals: normal to inspection Psych Psychiatry clinicians, please identify where your Mental Status Exam is documented: Mental Status Exam documented in the separate MSE Attitude: calm Results Labs Labs: Short CBC 01/21/23 Range/Units 18:13 WBC 11.7 H (4.0-11.0) 10^3/uL Hgb 8.0 L (12.0-16.0) g/dL Hct 24.5 L (36.0-48.0) % Plt Count 324 (150-450) 10^3/uL OB - PN: A/P Time Spent with Patient Time: Total time spent is greater than 50% in coordination of care (as documented) at patient's floor/unit and/or counseling patient: Total time spent with greater than 50% in coordination of care (as documented) at patient's floor/unit and/or counseling patient: less than 15 minutes
--- NOTE | 2023-01-22 11:44 | P.DS_ITS ---
DS: Providers Provider Date of admission: 01/19/23 05:13 Primary care physician: Non-Staff Physician, Admitting clinician: Mukul Foy Attending physician on admission: Mukul Foy Attending physician on discharge: ADELINE HSU Discharging clinician: ADELINE HSU Anticipated date of discharge: 01/22/23 OB - DS: Summary Hospital Course Time spent discussing smoking cessation with patient: more than 10 minutes Peripartum Data - Procedures: Procedures Operation Date: 01/19/23 22:40 Actual Procedure Side Surgeon p WITH DELIVERY OF VIABLE BABY GIRL Not Applicable Mukul Foy DO Peripartum Data - Vaginal Delivery Procedures: Procedures Operation Date: 01/19/23 22:40 Actual Procedure Side Surgeon p WITH DELIVERY OF VIABLE BABY GIRL Not Applicable Mukul Foy DO Complications complications: transfusion Infant Delivery method: section Gender: female Discharge plan: home Status at Discharge Functional status at discharge: independent ambulation Time Spent with Patient Time attestation: Total time spent providing and/or coordinating discharge services: Time spent: less than 30 minutes Exam Constitutional Vital Signs - 24 hr 01/21/23 18:00 01/21/23 22:20 01/21/23 17:43 Temperature 98.8 F 97.9 F Pulse Rate 74 90 Respiratory Rate 16 18 Blood Pressure 133/75 H Blood Pressure [Right Arm] 133/75 H 139/83 H 01/21/23 22:19 01/22/23 07:55 Temperature Pulse Rate Respiratory Rate Blood Pressure 139/83 H 121/76 H Blood Pressure [Right Arm] Documenting provider has reviewed patient's vital signs: yes Common normals: no apparent distress General appearance: cooperative, comfortable, well kempt and well developed Orientation/consciousness: Yes awake, Yes oriented to person, Yes oriented to place and Yes oriented to time HENCA Common normals: normocephalic Chest Common normals: inspection of chest normal Respiratory Common normals: normal respiratory effort Effort & inspection: able to speak in complete sentences Auscultation: clear to auscultation bilaterally Cardio Common normals: no JVD, regular rate and regular rhythm Rate: regular rate Rhythm: regular rhythm GI Common normals: Normal to inspection, nondistended, normoactive bowel sounds present Inspection: normal to inspection Auscultation: normoactive bowel sounds Palpation: soft Percussion: normal to percussion Common normals: no CVA tenderness Back & Pelvis Common normals: no CVA tenderness Thoracic spine/upper back: normal to inspection Extremity Common normals: normal to inspection Psych Common normals: mental status grossly normal and thought process normal Attitude: calm DS: Data Data Completed and Pending Labs on day of discharge: Labs from last 24 hours 01/21/23 18:13 WBC 11.7 H RBC 2.92 L Hgb 8.0 L Hct 24.5 L MCV 83.9 MCH 27.4 MCHC 32.7 RDW 14.5 Plt Count 324 MPV 9.0 L Neut % (Auto) 71.8 Lymph % (Auto) 18.0 L [place] % (Auto) 8.3 Eos % (Auto) 1.0 Baso % (Auto) 0.3 Neut # (Auto) 8.4 H Lymph # (Auto) 2.1 [place] # (Auto) 1.0 H Eos # (Auto) 0.1 Baso # (Auto) 0.0 Abs Immat Gran (auto) 0.07 H Imm/Tot Granulo (auto) 0.6 H Discharge Plan Discharge Disposition: Home, Self-Care Condition: Good Discharge Medications: New oxycodone-acetaminophen 5-325 mg Tablet 1 tab PO Q6H PRN (Reason: Pain) Qty: 20 0RF ibuprofen 400 mg Tablet 800 mg PO Q8H PRN (Reason: Pain Scale 1-3) Qty: 60 1RF docusate sodium 100 mg Capsule 100 mg PO BID Qty: 60 4RF Continued prenat.vits,fred,[id number] Tablet 1 tab PO DAILY sertraline [Zoloft] 25 mg tablet 25 mg PO DAILY Pro Fe 180 mg iron capsule 180 mg PO DAILY pantoprazole [Protonix] 40 mg tablet,delayed release (DR/EC) 40 mg PO DAILY Discontinued metformin 1,000 mg tablet 500 mg PO DAILY Forms: Portal Instructions
== END 2023-01-22 14:45 | disposition home or self-care (01) | DRG 788 ==
PROVIDERS: Admitting Provider Obstetrics & Gynecology; Visit Provider Obstetrics & Gynecology
PROC: 10D00Z1 Extraction of Products of Conception, Low, Open Approach (ICD-10-PCS; CPT 59514; principal; 2023-01-19 22:40)
DX: O24.12 Pre-existing type 2 diabetes mellitus, in childbirth (principal); O61.9 Failed induction of labor, unspecified; Z3A.39 39 weeks gestation of pregnancy; Z37.0 Single live birth; O62.0 Primary inadequate contractions; O36.63X0 Maternal care for excessive fetal growth, third trimester, not applicable or unspecified; Z79.84 Long term (current) use of oral hypoglycemic drugs; Z79.899 Other long term (current) drug therapy
CPT/HCPCS: 36415; 36430; 80307; 85025; 85027; 86850; 86900; 86901; 88307; 94667; 94668; 96372; 96374; 96375; 96376; J1170; J2300; P9016

== ENCOUNTER 2023-01-25 10:30 | Outpatient (RCR) | payer OTHER, SELFPAY ==
[2023-01-25 16:27] VITALS: PULSE 82; RESP 16; TEMP 36.6
== END 2023-01-25 16:10 | disposition home or self-care (01) ==
LOC: FBCO 10:30
PROVIDERS: Visit Provider Obstetrics & Gynecology
DX: O36.63X0 Maternal care for excessive fetal growth, third trimester, not applicable or unspecified (principal); Z3A.00 Weeks of gestation of pregnancy not specified

== ENCOUNTER 2023-03-13 10:44 | Outpatient (OUT) | payer OTHER, SELFPAY ==
--- NOTE | 2023-03-13 | ECG_ITS ---
[facility] Test Date: 2023-03-13 Pat Name: VINNY HERRERA Department: Room: - Gender: Female [employer] Operator: : 2000 Requested By: BRITT HOLDER Order Number: [id number] Reading MD: IKER PEOPLES Measurements Intervals [place] Rate: 56 P: 27 SD: 134 QRS: 29 QRSD: 108 T: 61 QT: 420 QTc: 408 Interpretive Statements SINUS BRADYCARDIA POSSIBLE RIGHT VENTRICULAR CONDUCTION DELAY [RSR (QR) IN V1/V2] No previous ECG available for comparison Electronically Signed On 03-14-2023 7:01:09 EDT by IKER PEOPLES
[2023-03-13 11:25] LABS: Basophils Percent Auto 0.3 % (0.2-2.0); Eosinophils Absolute Auto 0.1 10^3/uL (0.0-0.7); Eosinophils Percent Auto 1.5 % (0.9-7.0); Hematocrit 34.8 % (36.0-48.0); Hemoglobin 10.8 g/dL (12.0-16.0); Immature Granulocytes Abs Auto 0.02 10^3/uL (0.00-0.03); Immature Granulocytes Pct Auto 0.3 % (0.0-0.5); Lymphocytes Absolute Auto 2.1 10^3/uL (1.2-3.8); Lymphocytes Percent Auto 35.7 % (20.5-60.0); Mean Corpuscular Hemoglobin 26.7 pg (26.7-34.0); Mean Corpuscular Volume 86.1 fL (81.0-99.0); Mean Platelet Volume 8.3 fL (9.5-13.5); Monocytes Absolute Auto 0.6 10^3/uL (0.3-0.8); Monocytes Percent Auto 10.2 % (1.7-12.0); Neutrophils Absolute Auto 3.1 10^3/uL (1.4-6.5); Platelet Count 421 10^3/uL (150-450); Red Blood Count 4.04 10^6/uL (4.20-5.40); Red Cell Distribution Width 16.1 % (11.0-15.0)
[2023-03-13 14:51] LABS: Thyroid Stimulating Hormone 1.406 uIU/mL (0.358-3.740)
== END 2023-03-13 10:45 | disposition home or self-care (01) ==
LOC: CARD 10:44
PROVIDERS: Visit Provider Obstetrics & Gynecology
DX: R00.2 Palpitations (principal); D64.9 Anemia, unspecified
CPT/HCPCS: 36415; 84443; 85025; 93005

== ENCOUNTER 2023-07-05 19:46 | Outpatient (REF) | payer OTHER, SELFPAY ==
[2023-07-11 14:09] LABS: Age Gdln ACOG Testing Note (.); IGP, rfx Aptima HPV ASCU Note (.)
== END 2023-07-05 19:47 | disposition home or self-care (01) ==
LOC: LAB 19:46
PROVIDERS: Visit Provider Physician Assistant
DX: Z01.419 Encounter for gynecological examination (general) (routine) without abnormal findings (principal)
CPT/HCPCS: G0145

== ENCOUNTER 2024-07-15 21:00 | Outpatient (REF) | payer OTHER, SELFPAY ==
--- OUTSIDE RECORDS SUMMARY | 2024-07-15 21:04 | XMS_ITS | CCD ---
Author Organization [facility] Care Team Providers Care Economist Research Assistant Name Role Phone Jannette Peña I Primary Care Provider [phone] Ynes Mistry Primary Care Provider [phone] Ynes Ngo APRN, CNP Primary Care Provide r GALLO, BRITT R Admitting Unavailable GALLO, BRITT R Primary Care Unavailable GALLO, BRITT R Admitting Unavailable GALLO, BRITT R Primary Care Unavailable GALLO, BRITT R Admitting Unavailable GALLO, BRITT R Primary Care Unavailable JO ANN LIVE Admitting Unavailabl e GALLO, BRITT R Primary Care Unavailable Fede SED 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, Ynes Conner Primary Care Provide r Unavailable Primary Care Provider Unavailabl e GALLO ., DR DE LA TORRE Attending Unavailable MISC, DR YAÑEZ Primary Care Unavailable ROTTERDAM JUNCTION, DR YELENA Henao Consulting Unavailable GALLO ., DR DE LA TORRE Admitting Unavailable GALLO ., DR DE LA TORRE Consulting Unavailable GALLO ., DR DE LA TORRE Consulting Unavailable MISC, DR YAÑEZ Primary Care Unavailable GALLO ., DR DE LA TORRE Admitting Unavailable GALLO ., DR DE LA TORRE Attending Unavailable GALLO ., DR DE LA TORRE Consulting Unavailable GALLO ., DR DE LA TORRE Attending Unavailable GALLO ., DR DE LA TORRE Admitting Unavailable MISC, DR YAÑEZ Primary Care Unavailable GALLO ., DR DE LA TORRE Consulting Unavailable GALLO ., DR DE LA TORRE Attending Unavailable MISC, DR YAÑEZ Primary Care Unavailable GALLO ., DR DE LA TORRE Admitting Unavailable GALLO ., DR DE LA TORRE Consulting Unavailable MISC, DR YAÑEZ Primary Care Unavailable GALLO ., DR DE LA TORRE Admitting Unavailable GALLO ., DR DE LA TORRE Attending Unavailable ZIEBER, DR LUIS ALFREDO Forbes Consulting Unavailable GALLO ., DR DE LA TORRE Attending Unavailable GALLO ., DR DE LA TORRE Admitting Unavailable MISC, DR YAÑEZ Primary Care Unavailable KARASIK ., DR ESPINAL Consulting Unavailabl e KARASIK ., DR ESPINAL Attending Unavailabl e KARASIK ., DR ESPINAL Admitting Unavailabl e MISC, DR YAÑEZ Primary Care Unavailable ZIEBER, DR LUIS ALFREDO Forbes Consulting Unavailable GALLO ., DR DE LA TORRE Consulting Unavailable GALLO ., DR DE LA TORRE Attending Unavailable GALLO ., DR DE LA TORRE Admitting Unavailable MISC, DR YAÑEZ Primary Care Unavailable ZIEBER, DR LUIS ALFREDO Forbes Consulting Unavailable MARIA G ., DORA Consulting Unavailable MARIA G ., DORA Attending Unavailable MARIA G ., DORA Admitting Unavailable MISC, DR YAÑEZ Primary Care Unavailable MARIA G ., DORA Consulting Unavailable MARIA G ., DORA Attending Unavailable MISC, DR YAÑEZ Primary Care Unavailable MARIA G ., DORA Admitting Unavailable GALLO ., DR DE LA TORRE Consulting Unavailable MISC, DR YAÑEZ Primary Care Unavailable GALLO ., DR DE LA TORRE Admitting Unavailable GALLO ., DR DE LA TORRE Attending Unavailable GALLO ., DR DE LA TORRE Admitting Unavailable GALLO ., DR DE LA TORRE Attending Unavailable MISC, DR YAÑEZ Primary Care Unavailable GALLO ., DR DE LA TORRE Consulting Unavailable MISC, DR YAÑEZ Primary Care Unavailable GALLO ., DR DE LA TORRE Attending Unavailable GALLO ., DR DE LA TORRE Admitting Unavailable GALLO ., DR DE LA TORRE Admitting Unavailable GALLO ., DR DE LA TORRE Consulting Unavailable GALLO ., DR DE LA TORRE Attending Unavailable MISC, DR YAÑEZ Primary Care Unavailable ROTTERDAM JUNCTION, DR YELENA Henao Consulting Unavailable GALLO ., DR DE LA TORRE Attending Unavailable GALLO ., DR DE LA TORRE Admitting Unavailable REQUEST, DR STYLES LISTED Primary Care Unavaila ble GALLO ., DR DE LA TORRE Consulting Unavailable MARIA G, DORA Attending Unavailable RAJENDRA RUFFIN Attending Unavailable ISRAEL CHAMPION Attending Unavailable Ynes Ngo APRN, CNP Primary Care Provide r YNES MISTRY Primary Care Unavailable YNES MISTRY Referring Unavailable YNES MISTRY Primary Care Unavailable YNES MISTRY Referring Unavailable YNES MISTRY Primary Care Unavailable YNES MISTRY Referring Unavailable YNES MISTRY Primary Care Unavailable YNES MISTRY Referring Unavailable Medications Current Medications Medication Drug Class(es) Dates Sig (Normalized) Sig (Original) atorvastatin 10 mg oral tablet (1 source) HMG-CoA Reductase Inhibitor Start: 02-20-2024 take 1 tablet by mouth once daily atorvastatin (LIPITOR) 10 MG tablet Take 1 tablet by mouth daily 30 tablet 5 02/20/2024 Active cetirizine hydrochloride 10 mg oral tablet (6 sources) Histamine-1 Receptor Antagonist Start: 03-12-2021 take 1 tablet by mouth once daily cetirizine (ZYRTEC) 10 MG tablet Take 1 tablet by mouth daily 90 tablet 3 03/12/2021 Active Start: 06-29-2020 take 1 tablet by param th once daily cetirizine (ZYRTEC) 10 MG tablet Take 1 tablet by mouth daily 90 tablet 3 06/29/2020 Active drospirenone 4 mg oral tablet (1 source) Progestin Start: 05-12-2021 take 1 tablet by mouth once daily Drospirenone (SLYND) 4 MG TABS Indications: Irregular menses Take 1 tablet by mouth daily 84 tablet 4 05/12/2021 Active drospirenone 3 mg / ethinyl estradiol 0.03 mg oral tablet (9 sources) Progestin, Estrogen Start: 05-03-2021 ERICKA 3-0.03 MG TABS Indications: Irregular menses TAKE 1 TABLET DAILY 84 tablet 0 05/03/2021 Active Start: 10-11-2018 take 1 tablet by param th once daily drospirenone-ethinyl estradiol (CHANDANA 28) 3-0.03 MG TABS Indications: Irregular menses Take 1 tablet by mouth daily 3 packet 4 03/03/2020 Active Ethinyl Estradiol / Ferrous fumarate / Norethindrone (6 sources) Estrogen Start: 08-27-2018 JUNEL FE 24 1- 20 MG-MCG(24) TABS Indications: DUB (dysfunctional uterine bleeding) TAKE 1 TABLET DAILY 84 tablet 1 08/27/2018 Active Start: 05-04-2018 take 1 tablet by param th once daily Norethin David-Eth Estrad-FE 1-20 MG-MCG(24) TABS Indications: Irregular menses Take 1 tablet by mouth daily 28 tablet 12 05/04/2018 Active Start: 07-21-2017 take 1 tablet by param once daily Norethin David-Eth Estrad-FE () 1-20 MG-MCG(24) TABS Indications: Irregular menses Take 1 tablet by mouth daily 84 tablet 3 07/21/2017 Active fexofenadine / Pseudoephedrine (2 sources) alpha-Adrenergic Agonist, Histamine-1 Receptor Antagonist Fexofenadine-Pseudoe phedrine (JOSÉ MIGUEL-D PO) Take by mouth 0 Active fluconazole 150 mg oral tablet (1 source) Azole Antifungal Star t: 08-12 20 take 1 tablet by mouth once daily as needed fluconazole (DIFLUCAN) 150 MG tablet Indications: Vaginal yeast infection Take 1 tablet by mouth daily as needed (yeast) 1 tablet 11 03/24/2020 Active fluticasone propionate 0.05 mg/actuat metered dose nasal spray (5 sources) Corticosteroid fluticasone (KEVIN NASE) 50 MCG/ACT nasal spray 1 spray by Each Nare route daily 0 Active loratadine 10 mg oral capsule (2 sources) take 1 capsule by mouth once daily loratadine (CLARITIN) 10 MG capsule Take 10 mg by mouth daily 0 Active 24 hr metFORMIN hydrochloride 500 mg extended release oral tablet (1 source) Biguanide Star t: 11-10 End: 09-12 25 metFORMIN (GLUCOPHAGE-XR) 50 0 MG extended release tablet Indications: BMI 37.0-37.9, adult , Class 2 obesity with body mass index (BMI) of 37.0 to 37.9 in adult, unspecified obesity type, unspecified whether serious comorbidity present Take 2 tablets by mouth in the morning and at bedtime 360 tablet 1 04/26/2024 10/23/2024 Active nitrofurantoin, macrocrystals 50 mg oral capsule (4 sources) Nitrofuran Antibacterial Star t: 02-21 20 take 1 capsule by mouth once daily nitrofurantoin (MACRODANTIN) 50 MG capsule Indications: Recurrent UTI Take 1 capsule by mouth nightly 30 capsule 0 03/03/2020 Active phentermine hydrochloride 37.5 mg oral tablet (1 source) Sympathomimetic Amine Anorectic Star t: 04-12 24 End: 11-0 8-20 24 take 37-37.9 tablets by mouth once daily phentermine (ADIPEX-P) 37.5 MG tablet Indications: Mixed hyperlipidemia , BMI 37.0-37.9, adult , Class 2 obesity with body mass index (BMI) of 37.0 to 37.9 in adult, unspecified obesity type, unspecified whether serious comorbidity present Take 1 tablet by mouth every morning (before breakfast) for 30 days. Max Daily Amount: 37.5 mg 30 tablet 05/01/2024 05/31/2024 Active Probiotic Product (PROBIOTIC ADVANCED PO) (6 sources) Probiotic Produc t (PROBIOTIC ADVANCED PO) Take by mouth Active Probiotic Produc t (PROBIOTIC ADVANCED PO) Take by mouth 0 Active sertraline 50 mg oral tablet (6 sources) Serotonin Reuptake Inhibitor Start: 10-17-2023 take 1 tablet by mouth once daily sertraline (ZOLOFT) 50 MG tablet Indications: Anxiety Take 1 tablet by mouth daily 30 tablet 10/17/2023 Active Start: 03-29-2022 take 1 tablet by param th once daily sertraline (ZOLOFT) 25 MG tablet Indications: Anxiety Take 1 tablet by mouth daily 90 tablet 3 03/29/2022 Active Start: 03-12-2021 take 1 tablet by param th once daily sertraline (ZOLOFT) 25 MG tablet Take 1 tablet by mouth daily 90 tablet 3 03/12/2021 Active Start: 08-17-2020 take 1 tablet by param th once daily sertraline (ZOLOFT) 50 MG tablet Take 1 tablet by mouth daily 30 tablet 2 08/17/2020 Active sulfamethoxazole 800 mg / trimethoprim 160 mg oral tablet (2 sources) Dihydrofolate Reductase Inhibitor Antibacterial, Sulfonamide Antimicrobial Start: 02-24-2020 take 1 tablet by mouth every twelve hours sulfamethoxazole-trimethoprim (BACTRIM DS;SEPTRA DS) 800-160 MG per tablet TAKE 1 TABLET BY MOUTH EVERY 12 HOURS FOR 7 DAYS 0 02/24/2020 Active Tirzepatide (MOUNJARO) 2.5 MG/0.5ML SOPN SC injection (1 source) Start: 05-01-2024 Tirzepatide (MOUNJARO) 2.5 MG/0.5ML SOPN SC injection Indications: Mixed hyperlipidemia , BMI 37.0-37.9, adult , Class 2 obesity with body mass index (BMI) of 37.0 to 37.9 in adult, unspecified obesity type, unspecified whether serious comorbidity present Inject 0.5 mLs into the skin once a week 4 mL 1 05/01/2024 Active traZODone hydrochloride 50 mg oral tablet (1 source) Serotonin Reuptake Inhibitor Start: 05-01-2020 take 0.5 tablet by mouth once daily traZODone (DESYREL) 50 MG tablet Take 0.5 tablets by mouth nightly 30 tablet 2 05/01/2020 Active Problems Active Problems Problem Classification Problem Date Documented Date Episodic/Chronic Administrative/social admission (4 sources) Dietary counseling and surveillance; Translations: [DIETARY COUNSELING AND SURVEILLANCE] Onset: 10-31-2022 Episodic Anxiety disorders (6 sources) Anxiety; Translations: [Anxiety disorder, unspecified] Onset: 06-29-2020 06-29-2020 Chronic Diabetes mellitus without complication (4 sources) Other abnormal glucose; Translations: [OTHER ABNORMAL GLUCOSE] Onset: 10-22-2022 Episodic Disorders of lipid metabolism (3 sources) Mixed hyperlipidemia; Translations: [Mixed hyperlipidemia] Onset: 02-20-2024 05-20-2024 Chronic Other complications of (4 sources) Maternal care for excessive growth, third trimester, not applicable or unspecified; Translations: [MAT CARE EXCSS FTL GRTH 3RD TRI UNS] Onset: 12-17-2022 Episodic Other complications of (3 sources) Maternal care for excessive growth, unspecified trimester, not applicable or unspecified; Translations: [MAT CARE EXCSS FTL GRTH UNS TRI UNS] Onset: 12-10-2022 Episodic Other injuries and conditions due to external causes (4 sources) Encounter for examination and observation following other accident; Translations: [ENC EXAM AND OBSERVATION FOLLOW [facility]] Onset: 12-12-2022 Episodic Other liver diseases (1 source) Steatosis of liver; Translations: [Fatty (change of) liver, not elsewhere classified] Onset: 03-06-2024 03-06-2024 Chronic Other liver diseases (2 sources) Elevated liver enzymes level; Translations: [Abnormal levels of other serum enzymes] Onset: 03-01-2024 05-20-2024 Episodic Other liver diseases (1 source) Abnormal levels of other serum enzymes; Translations: [Abnormal levels of other serum enzymes] Onset: 03-01-2024 Episodic Other nutritional; endocrine; and metabolic disorders (1 source) Body mass index 30+ - obesity; Translations: [Body mass index (BMI) 37.0-37.9, adult] Onset: 03-01-2024 03-01-2024 Chronic Other nutritional; endocrine; and metabolic disorders (1 source) Obesity; Translations: [Class 2 obesity with body mass index (BMI) of 37.0 to 37.9 in adult] Onset: 03-01-2024 03-01-2024 Chronic Other and delivery including normal (15 sources) Encounter for supervision of normal , unspecified, unspecified trimester; Translations: [ state, incidental] Onset: 07-01-2022 Episodic Other screening for suspected conditions (not mental disorders or infectious disease) (14 sources) Encounter for other screening follow-up; Translations: [Encounter for screening, unspecified] Onset: 04-18-2022 Episodic Other upper respiratory disease (6 sources) Seasonal allergic rhinitis; Translations: [Other seasonal allergic rhinitis] Onset: 06-29-2020 06-29-2020 Chronic Residual codes; unclassified (1 source) 34 weeks gestation of ; Translations: [34 WEEKS GESTATION OF ] Onset: 12-19-2022 Episodic Residual codes; unclassified (1 source) 33 weeks gestation of ; Translations: [33 WEEKS GESTATION OF ] Onset: 12-15-2022 Episodic Residual codes; unclassified (1 source) Family history of other diseases of the digestive system; Translations: [Family history of other diseases of the digestive system] Onset: 03-06-2024 Episodic Unclassified (1 source) Cancer cervix screening status; Translations: [Screening for cervical cancer] Unclassified (3 sources) Patient encounter status; Translations: [Encounter for annual routine gynecological examination] Past or Other Problems Problem Classification Problem Date Documented Date Episodic/Chronic Cardiac dysrhythmias (2 sources) Palpitations; Translations: [Palpitations] Onset: 03-20-2023 Episodic Deficiency and other anemia (1 source) Iron deficiency anemia; Translations: [Iron deficiency anemia, unspecified] Onset: 10-25-2023 10-25-2023 Episodic Deficiency and other anemia (1 source) Iron deficiency anemia, unspecified; Translations: [Iron deficiency anemia, unspecified] Onset: 10-25-2023 Episodic Diabetes or abnormal glucose tolerance complicating ; childbirth; or the puerperium (2 sources) Gestational diabetes mellitus in , unspecified control; Translations: [Gestational diabetes mellitus complicating ] Onset: 07-24-2022 10-17-2023 Episodic Immunizations and screening for infectious disease (3 sources) Encounter for screening for infections with a predominantly sexual mode of transmission; Translations: [Encounter for screening for human papillomavirus (HPV)] Onset: 04-20-2022 Episodic Malaise and fatigue (10 sources) Fatigue; Translations: [Other fatigue] Onset: 05-02-2020 05-02-2020 Episodic Menstrual disorders (5 sources) Amenorrhea; Translations: [Amenorrhea, unspecified] Onset: 06-23-2022 Resolved: 02-20-2024 Chronic Miscellaneous mental health disorders (7 sources) Insomnia disorder related to another mental disorder; Translations: [Insomnia due to other mental disorder] Onset: 05-02-2020 Resolved: 02-20-2024 05-02-2020 Chronic Other female genital disorders (4 sources) Pain in female genitalia on intercourse; Translations: [Unspecified dyspareunia] Onset: 11-30-2020 Resolved: 02-20-2024 11-30-2020 Chronic Other female genital disorders (4 sources) Other specified noninflammatory disorders of vagina; Translations: [OTH SPEC NONINFLAMMATORY D/O VAGINA] Onset: 09-12-2022 Episodic Other skin disorders (1 source) Acne; Translations: [Acne, unspecified] Onset: 10-17-2023 10-17-2023 Episodic Urinary tract infections (5 sources) Recurrent urinary tract infection; Translations: [Urinary tract infection, site not specified] Onset: 11-30-2020 Resolved: 02-20-2024 Episodic Results Test Name Value Interpretation Reference Range Facil ity Comp Metabolic Profon 2023 Albumin [Mass/Vol] 4.6 g/dL Normal 3.5-5.2 [facility] Comment on above: Performed By: #### C P #### [facility] [address] [place] [address] Cnc Machine Programmer: Yelena Greco MD Albumin/Glob Ratio 1.5 Normal 1.0-2.5 [facility] Comment on above: Performed By: #### C P #### [facility] [address] [place], [place] [id number] Cnc Machine Programmer: Yelena Greco MD Alkaline Phos 71 U/L Normal 35-104 [facility] Comment on above: Performed By: #### C P #### [facility] [address] [place], [place] [id number] Cnc Machine Programmer: Yelena Greco MD ALT [Catalytic activity/Vol] 41 U/L High 10-35 [facility] Comment on above: Performed By: #### C P #### [facility] [address] [place], [place] [id number] Cnc Machine Programmer: Yelena Greco MD Anion gap [Moles/Vol] 10 mmol/L Normal 9-16 [facility] Comment on above: Performed By: #### C P #### [facility] [address] [place], [place] [id number] Cnc Machine Programmer: Yelena Greco MD AST [Catalytic activity/Vol] 34 U/L Normal 10-35 [facility] Comment on above: Performed By: #### C P #### [facility] [address] [place], [place] [id number] Cnc Machine Programmer: Yelena Greco MD Bilirubin [Mass/Vol] 0.4 mg/dL Normal 0.00-1.20 [facility] Comment on above: Performed By: #### C P #### [facility] [address] [place], [place] [id number] Cnc Machine Programmer: Yelena Greco MD BUN/CRE Ratio 22 High 9-20 [facility] Comment on above: Performed By: #### C P #### [facility] [address] [place], [place] [id number] Cnc Machine Programmer: Yelena Greco MD Calcium [Mass/Vol] 9.4 mg/dL Normal 8.6-10.4 [facility] Comment on above: Performed By: #### C P #### [facility] [address] [place] [address] Cnc Machine Programmer: Yelena Greco MD Chloride [Moles/Vol] 103 mmol/L Normal 98-107 [facility] Comment on above: Performed By: #### C P #### [facility] [address] [place] [address] Cnc Machine Programmer: Yelena Greco MD CO2 [Moles/Vol] 25 mmol/L Normal 20-31 [facility] Comment on above: Performed By: #### C P #### [facility] [address] [place] [address] Cnc Machine Programmer: Yelena Greco MD Creatinine [Mass/Vol] 0.6 mg/dL Normal 0.50-0.90 [facility] Comment on above: Performed By: #### C P #### [facility] [address] [place] [address] Cnc Machine Programmer: Yelena Greco MD GFR/1.73 sq M.predicted among non-blacks MDRD (S/P/Bld) [Vol rate/Area] mL/min/{1.73_m2} Normal >60 [facility] Comment on above: Result Comment: These results are not intended for use in patients <18 years of age. eGFR results are calculated without a race factor using the 2020 CKD-EPI equation. Careful clinical correlation is recommended, particularly when comparing to results calculated using previous equations. The CKD-EPI equation is less accurate in patients with extremes of muscle mass, extra-renal metabolism of creatine, excessive creatine ingestion, or following therapy that affects renal tubular secretion. Performed By: #### C P #### [facility] [address] [place] [address] Cnc Machine Programmer: Yelena Greco MD Glucose [Mass/Vol] 83 mg/dL Normal 74-99 [facility] Comment on above: Performed By: #### C P #### [facility] [address] [place] [address] Cnc Machine Programmer: Yelena Greco MD Potassium [Moles/Vol] 4.6 mmol/L Normal 3.7-5.3 [facility] Comment on above: Performed By: #### C P #### [facility] [address] [place], [place] [id number] Cnc Machine Programmer: Yelena Greco MD Protein [Mass/Vol] 7.8 g/dL Normal 6.6-8.7 [facility] Comment on above: Performed By: #### C P #### [facility] [address] [place], [place] [id number] Cnc Machine Programmer: Yelena Greco MD Sodium [Moles/Vol] 138 mmol/L Normal 136-145 [facility] Comment on above: Performed By: #### C P #### [facility] [address] [place], [place] [id number] Cnc Machine Programmer: Yelena Greco MD Urea nitrogen [Mass/Vol] 13 mg/dL Normal 6-20 [facility] Comment on above: Performed By: #### C P #### [address] [place] [address] Cnc Machine Programmer: Yelena Greco MD Comprehensive Metabolic Pane [facility] 05-20-2024 Albumin [Mass/Vol] 4.6 g/dL 3.5 - 5.2 g/dL [facility] Albumin/Globulin [Mass ratio] 1.5 {ratio} 1.0 - 2.5 [facility] ALP [Catalytic activity/Vol] 71 U/L 35 - 104 U/L [facility] ALT [Catalytic activity/Vol] 41 U/L High 10 - 35 U/L [facility] Anion gap [Moles/Vol] 10 mmol/L 9 - 16 mmol/L [facility] AST [Catalytic activity/Vol] 34 U/L 10 - 35 U/L [facility] Bilirubin [Mass/Vol] 0.4 mg/dL 0.00 - 1.20 mg/dL [facility] Calcium [Mass/Vol] 9.4 mg/dL 8.6 - 10. 4 mg/dL [facility] Chloride [Moles/Vol] 103 mmol/L 98 - 107 mmol/L [facility] CO2 [Moles/Vol] 25 mmol/L 20 - 31 mmol/L [facility] Creatinine [Mass/Vol] 0.6 mg/dL 0.50 - 0.90 mg/dL [facility] Est, Glom Filt Rate - PINF [facility] Comment on above: These results are not intended for use in patients <18 years of age. eGFR results are calculated without a race factor using the 2020 CKD-EPI equation. Careful clinical correlation is recommended, particularly when comparing to results calculated using previous equations. The CKD-EPI equation is less accurate in patients with extremes of muscle mass, extra-renal metabolism of creatine, excessive creatine ingestion, or following therapy that affects renal tubular secretion. Glucose [Mass/Vol] 83 mg/dL 74 - 99 mg/dL [facility] Interpretation and review of laboratory results Abnormal [facility] Potassium [Moles/Vol] 4.6 mmol/L 3.7 - 5.3 mmol/L [facility] Protein [Mass/Vol] 7.8 g/dL 6.6 - 8.7 g/dL [facility] Sodium [Moles/Vol] 138 mmol/L 136 - 145 mmol/L [facility] Urea nitrogen [Mass/Vol] 13 mg/dL 6 - 20 mg/dL [facility] Urea nitrogen/Creatinine [Mass ratio] 22 mg/mg High 9 - 20 [facility] Lipid Panelon 05-20-2024 Cholesterol [Mass/Vol] 152 mg/dL 0 - 199 mg/dL [facility] Comment on above: Cholesterol Guidelines: <200 Desirable 200-240 Borderline >240 Undesirable Cholesterol in HDL [Mass/Vol] 33 mg/dL Low 40 - PINF mg/dL [facility] Comment on above: HDL Guidelines: <40 Undesirable 40-59 Borderline >59 Desirable Cholesterol in LDL [Mass/Vol] 88 mg/dL 0 - 100 mg/dL [facility] Comment on above: LDL Guidelines: <100 Desirable 100-129 Near to/above Desirable 130-159 Borderline >159 Undesirable Direct (measured) LDL and calculated LDL are not interchangeable tests. Cholesterol in VLDL [Mass/Vol] 31 mg/dL [facility] Cholesterol.total/Ch olesterol in HDL [Mass ratio] 5.0 {ratio} [facility] Interpretation and review of laboratory results Abnormal [facility] Triglyceride [Mass/Vol] 156 mg/dL High NINF - 150 mg/dL [facility] Comment on above: Triglyceride Guidelines: <150 Desirable 150-199 Borderline 200-499 High >499 Very high Based on AHA Guidelines for fasting triglyceride, April 2012. [facility] Lipid Profileon 05-20-2024 Cholesterol [Mass/Vol] 152 mg/dL Normal 0-199 [facility] Comment on above: Result Comment: Cholesterol Guidelines: <200 Desirable 200-240 Borderline >240 Undesirable Performed By: #### L IPR #### [employer] [address] [place] [address] Cnc Machine Programmer: Osvaldo Santamaria MD Cholesterol in HDL [Mass/Vol] 33 mg/dL Low >40 [facility] Comment on above: Result Comment: HDL Guidelines: <40 Undesirable 40-59 Borderline >59 Desirable Performed By: #### L IPR #### [employer] [address] [place] [id number] Cnc Machine Programmer: Osvaldo Santamaria MD Cholesterol in LDL [Mass/Vol] 88 mg/dL Normal 0-100 [facility] Comment on above: Result Comment: LDL Guidelines: <100 Desirable 100-129 Near to/above Desirable 130-159 Borderline >159 Undesirable Direct (measured) LDL and calculated LDL are not interchangeable tests. Performed By: #### L IPR #### [employer] [address] [place] [address] Cnc Machine Programmer: Osvaldo Santamaria MD Cholesterol in VLDL [Mass/Vol] 31 mg/dL Normal [facility] Comment on above: Performed By: #### L IPR #### [employer] [address] [place] [address] [employer]nc Machine Programmer: Osvaldo Santamaria MD Cholesterol.total/Ch olesterol in HDL [Mass ratio] 5.0 {ratio} Normal [facility] Comment on above: Performed By: #### L IPR #### [facility] [address] [place] [address] Cnc Machine Programmer: Osvaldo Santamaria MD Triglyceride [Mass/Vol] 156 mg/dL High <150 [facility] Comment on above: Result Comment: Triglyceride Guidelines: <150 Desirable 150-199 Borderline 200-499 High >499 Very high Based on AHA Guidelines for fasting triglyceride, April 2012. Performed By: #### L IPR #### [facility] [address] [place] [address] Cnc Machine Programmer: Osvaldo Santamaria MD US GALLBLADDER RUQon 024 US GALLBLADDER RUQ EXAMINATION: RIGHT UPPER QUADRANT ULTRASOUND 03/06/2024 9:58 am COMPARISON: None. HISTORY: ORDERING SYSTEM PROVIDED HISTORY: Elevated liver enzymes TECHNOLOGIST PROVIDED HISTORY: This procedure can be scheduled via [facility]. elevated liver enzymes, fam hx gallbladder disease. please assess liver FINDINGS: LIVER: The liver demonstrates increased echogenicity without evidence of intrahepatic biliary ductal dilatation. Focal fatty sparing adjacent to the gallbladder fossa. BILIARY SYSTEM: Gallbladder is unremarkable without evidence of pericholecystic fluid, wall thickening or stones. Negative sonographic Brito's sign. The common bile measures 2.7 mm, within normal limits. RIGHT KIDNEY: The right kidney is grossly unremarkable without evidence of hydronephrosis. PANCREAS: Visualized portions of the pancreas are unremarkable. OTHER: No evidence of right upper quadrant ascites. IMPRESSION: Fatty infiltration of the liver. Otherwise unremarkable right upper quadrant ultrasound. Interpreted by: Hernandez Stewart MD Signed by: Hernandez Stewart MD 03/06/24 Final result Normal [facility] CBCon 02-16-2024 Erythrocyte distribution width (RBC) [Ratio] 12.4 % Normal 11.8-14.4 [facility] Comment on above: Performed By: #### C P, CBC #### [facility] [address] [place] [address] Cnc Machine Programmer: Yelena Greco MD #### FEBC #### [address] [place], [place] [id number] [employer] Machine Programmer: Osvaldo Santamaria MD Hematocrit (Bld) [Volume fraction] 40.2 % Normal 36.3-47.1 [facility] Comment on above: Performed By: #### C P, CBC #### [address] [place] [address] Cnc Machine Programmer: Yelena Greco MD #### FEBC #### [address] [id number] [employer] Machine Programmer: Osvaldo Santamaria MD Hemoglobin (Bld) [Mass/Vol] 13.5 g/dL Normal 11.9-15.1 [facility] Comment on above: Performed By: #### C P, CBC #### [address] [place] [address] Cnc Machine Programmer: Yelena Greco MD #### FEBC #### [address] [id number] [employer] Machine Programmer: Osvaldo Santamaria MD MCH (RBC) [Entitic mass] 29.8 pg Normal 25.2-33.5 [facility] Comment on above: Performed By: #### C P, CBC #### [address] [place] [address] [employer]nc Machine Programmer: Yelena Greco MD #### FEBC #### [address] [place], [place] [id number] [employer] Machine Programmer: Osvaldo Santamaria MD MCHC (RBC) [Mass/Vol] 33.6 g/dL Normal 28.4-34.8 [facility] Comment on above: Performed By: #### C P, CBC #### [address] [place] [address] Cnc Machine Programmer: Yelena Greco MD #### FEBC #### [address] [place], [place] 8108408 [employer] Machine Programmer: Osvaldo Santamaria MD MCV (RBC) [Entitic vol] 88.7 fL Normal 82.6-102.9 [facility] Comment on above: Performed By: #### C P, CBC #### [facility] [address] [place] [address] [place] [id number] [employer] Machine Programmer: Yelena Greco MD #### FEBC #### [address] [id number] [employer] Programmer: Osvaldo Santamaria MD NRBC Automated 0.0 per 100 WBC Normal 0.0 [facility] Comment on above: Performed By: #### C P, CBC #### [address] [place] [id number] ( C[employer] Machine Programmer: Yelena Greco MD #### FEBC #### [address] [address] Cnc Machine Programmer: Osvaldo Santamaria MD Platelet mean volume (Bld) [Entitic vol] 8.5 fL Normal 8.1-13.5 [facility] Comment on above: Performed By: #### C P, CBC #### [address] [place] 4581666 ( [employer] Machine Programmer: Yelena Greco MD #### FEBC #### [place] [address] Cnc Machine Programmer: Osvaldo Santamaria MD Platelets (Bld) [#/Vol] 309 10*3/uL Normal 138-453 [facility] Comment on above: Performed By: #### C P, CBC #### [address] [place] 4581683 [employer] Machine Programmer: Yelena Greco MD #### FEBC #### [address] [place] [address] Cnc Machine Programmer: Osvaldo Santamaria MD RBC (Bld) [#/Vol] 4.53 10*6/uL Normal 3.95-5.11 [facility] Comment on above: Performed By: #### C P, CBC #### [facility] [address] [place], [place] [id number] [employer] Machine Programmer: Yelena Greco MD #### FEBC #### [address] [place], [place] 3217408 C[employer] Machine Programmer: Osvaldo Santamaria MD WBC (Bld) [#/Vol] 6.5 10*3/uL Normal 3.5-11.3 [facility] Comment on above: Performed By: #### C P, CBC #### [facility] [address] [place] [address] [address] [place] 4581683 [employer] Machine Programmer: Yelena Greco MD #### FEBC #### [address] [address] Cnc Machine Programmer: Osvaldo Santamaria MD Comp Metabolic Profon 2023 Albumin [Mass/Vol] 4.5 g/dL Normal 3.5-5.2 [facility] Comment on above: Performed By: #### C P, CBC #### [facility] [address] [place] [address] [employer] Machine Programmer: Yelena Greco MD #### FEBC #### [address] [address] Cnc Machine Programmer: Osvaldo Santamaria MD Albumin/Glob Ratio 1.5 Normal 1.0-2.5 [facility] Comment on above: Performed By: #### C P, CBC #### [facility] [address] [place] [address] [address] [place], [place] [phone] [employer] Machine Programmer: Yelena Greco MD #### FEBC #### [facility] [address] [place] [address] Cnc Machine Programmer: Osvaldo Santamaria MD Alkaline Phos 74 U/L Normal 35-104 [facility] Comment on above: Performed By: #### C P, CBC #### [facility] [address] [place], [place] 6535383 [employer] Machine Programmer: Yelena Greco MD #### FEBC #### [address] [address] Cnc Machine Programmer: Osvaldo Santamaria MD ALT [Catalytic activity/Vol] 61 U/L High 5-33 [facility] Comment on above: Performed By: #### C P, CBC #### [facility] [address] [place], [place] 2861983 [employer] Machine Programmer: Yelena Greco MD #### FEBC #### [address] [address] Cnc Machine Programmer: Osvaldo Santamaria MD Anion gap [Moles/Vol] 8 mmol/L Low 9-17 [facility] Comment on above: Performed By: #### C P, CBC #### [facility] [address] [place] [address] [address] [place], [place] 3733883 [employer] Machine Programmer: Yelena Greco MD #### FEBC #### [address] [address] Cnc Machine Programmer: Osvaldo Santamaria MD AST [Catalytic activity/Vol] 43 U/L High <32 [facility] Comment on above: Performed By: #### C P, CBC #### [facility] [address] [place], [place] 6441583 C[employer] Machine Programmer: Yelena Greco MD #### FEBC #### [address] [address] Cnc Machine Programmer: Osvaldo Santamaria MD Bilirubin [Mass/Vol] 0.2 mg/dL Low 0.3-1.2 [facility] Comment on above: Performed By: #### C P, CBC #### [facility] [address] [place], [place] 0351783 [employer] Machine Programmer: Yelena Greco MD #### FEBC #### [address] [address] Cnc Machine Programmer: Osvaldo Santamaria MD BUN/CRE Ratio 20 Normal 9-20 [facility] Comment on above: Performed By: #### C P, CBC #### [facility] [address] [place], [place] 7713183 [employer] Machine Programmer: Yelena Greco MD #### FEBC #### [address] [address] [employer] Machine Programmer: Osvaldo Santamaria MD Calcium [Mass/Vol] 9.4 mg/dL Normal 8.6-10.4 [facility] Comment on above: Performed By: #### C P, CBC #### [facility] [address] [place], [place] 8371983 [employer] Machine Programmer: Yelena Greco MD #### FEBC #### [address] [address] Cnc Machine Programmer: Osvaldo Santamaria MD Chloride [Moles/Vol] 100 mmol/L Normal 98-107 [facility] Comment on above: Performed By: #### C P, CBC #### [facility] [address] [place], [place] 8162583 [employer] Machine Programmer: Yelena Greco MD #### FEBC #### [address] [address] Cnc Machine Programmer: Osvaldo Santamaria MD CO2 [Moles/Vol] 28 mmol/L Normal 20-31 [facility] Comment on above: Performed By: #### C P, CBC #### [facility] [address] [place], [place] 6550183 C[employer] Machine Programmer: Yelena Greco MD #### FEBC #### [facility] [address] [place], [place] 1503608 Cnc Machine Programmer: Osvaldo Santamaria MD Creatinine [Mass/Vol] 0.6 mg/dL Normal 0.5-0.9 [facility] Comment on above: Performed By: #### C P, CBC #### [facility] [address] [place], [place] 2069383 [employer] Machine Programmer: Yelena Greco MD #### FEBC #### [address] [place], [place] 0388408 C[employer] Machine Programmer: Osvaldo Santamaria MD GFR/1.73 sq M.predicted among non-blacks MDRD (S/P/Bld) [Vol rate/Area] mL/min/{1.73_m2} Normal >60 [facility] Comment on above: Result Comment: These results are not intended for use in patients <18 years of age. eGFR results are calculated without a race factor using the 2020 CKD-EPI equation. Careful clinical correlation is recommended, particularly when comparing to results calculated using previous equations. The CKD-EPI equation is less accurate in patients with extremes of muscle mass, extra-renal metabolism of creatine, excessive creatine ingestion, or following therapy that affects renal tubular secretion. Performed By: #### C P, CBC #### [facility] [address] [place] [address] [address] [place], [place] 1402983 [employer] Machine Programmer: Yelena Greco MD #### FEBC #### [facility] [address] [place], [place] 4694508 Cnc Machine Programmer: Osvaldo Santamaria MD Glucose [Mass/Vol] 91 mg/dL Normal 70-99 [facility] Comment on above: Performed By: #### C P, CBC #### [facility] [address] [place], [place] 8831083 [employer] Machine Programmer: Yelena Greco MD #### FEBC #### [facility] [address] [place] [address] Cnc Machine Programmer: Osvaldo Santamaria MD Potassium [Moles/Vol] 4.2 mmol/L Normal 3.7-5.3 [facility] Comment on above: Performed By: #### C P, CBC #### [facility] [address] [place], [place] 6729783 C[employer] Machine Programmer: Yelena Greco MD #### FEBC #### [address] [address] Cnc Machine Programmer: Osvaldo Santamaria MD Protein [Mass/Vol] 7.6 g/dL Normal 6.4-8.3 [facility] Comment on above: Performed By: #### C P, CBC #### [facility] [address] [place] [address] [address] [place], [place] 8692583 [employer] Machine Programmer: Yelena Greco MD #### FEBC #### [address] [place] [address] Cnc Machine Programmer: Osvaldo Santamaria MD Sodium [Moles/Vol] 136 mmol/L Normal 135-144 [facility] Comment on above: Performed By: #### C P, CBC #### [facility] [address] [place], [place] 0084383 [employer] Machine Programmer: Yelena Greco MD #### FEBC #### [address] [place] [address] Cnc Machine Programmer: Osvaldo Santamaria MD Urea nitrogen [Mass/Vol] 12 mg/dL Normal 6-20 [facility] Comment on above: Performed By: #### C P, CBC #### [facility] [address] [place], [place] 4943083 [employer] Machine Programmer: Yelena Greco MD #### FEBC #### [address] [address] Cnc Machine Programmer: Osavldo Santamaria MD Iron Binding Cap.on 02-16-20 24 % Fe Saturation 25 % Normal 20-55 [facility] Comment on above: Performed By: #### C P, CBC #### [facility] [address] [place], [place] 2682183 C[employer] Machine Programmer: Yelena Greco MD #### FEBC #### [address] [address] Cnc Machine Programmer: Osvaldo Santamaria MD Iron [Mass/Vol] 92 ug/dL Normal 37-145 [facility] Comment on above: Performed By: #### C P, CBC #### [facility] [address] [place] [address] [address], [place] 3966583 [employer] Machine Programmer: Yelena Greco MD #### FEBC #### [address] [address] Cnc Machine Programmer: Osvaldo Santamaria MD Total Fe Binding Cap 373 ug/dL Normal 250-450 [facility] Comment on above: Performed By: #### C P, CBC #### [facility] [address] [place] [address] [place], [place] 1992283 Cnc Machine Programmer: Yelena Greco MD #### FEBC #### [address] [address] Cnc Machine Programmer: Osvaldo Santamaria MD Unbound Fe Bind Cap 281 ug/dL Normal 112-347 [facility] Comment on above: Performed By: #### C P, CBC #### [facility] [address] [place], [place] 6540483 Cnc Machine Programmer: Yelena Greco MD #### FEBC #### [address] [address] Cnc Machine Programmer: Osvaldo Santamaria MD Lipid Profileon 02-16-2024 Cholesterol [Mass/Vol] 245 mg/dL High 0-199 [facility] Comment on above: Result Comment: Cholesterol Guidelines: <200 Desirable 200-240 Borderline >240 Undesirable Performed By: #### L IPR #### [address] [address] Cnc Machine Programmer: Osvaldo Santamaria MD Cholesterol in HDL [Mass/Vol] 34 mg/dL Low >40 [facility] Comment on above: Result Comment: HDL Guidelines: <40 Undesirable 40-59 Borderline >59 Desirable Performed By: #### L IPR #### [address] [address] Cnc Machine Programmer: Osvaldo Santamaria MD Cholesterol in LDL [Mass/Vol] 159 mg/dL High 0-100 [facility] Comment on above: Result Comment: LDL Guidelines: <100 Desirable 100-129 Near to/above Desirable 130-159 Borderline >159 Undesirable Direct (measured) LDL and calculated LDL are not interchangeable tests. Performed By: #### L IPR #### [facility] [address] [place] [address] Cnc Machine Programmer: Osvaldo Santamaria MD Cholesterol in VLDL [Mass/Vol] 52 mg/dL Normal [facility] Comment on above: Performed By: #### L IPR #### [facility] [address] [place] [address] Cnc Machine Programmer: Osvaldo Santamaria MD Cholesterol.total/Ch olesterol in HDL [Mass ratio] 7.0 {ratio} Normal [facility] Comment on above: Performed By: #### L IPR #### [facility] [address] [place] [address] Cnc Machine Programmer: Osvaldo Santamaria MD Triglyceride [Mass/Vol] 259 mg/dL High <150 [facility] Comment on above: Result Comment: Triglyceride Guidelines: <150 Desirable 150-199 Borderline 200-499 High >499 Very high Based on AHA Guidelines for fasting triglyceride, April 2012. Performed By: #### L IPR #### [facility] [address] [place] [address] Cnc Machine Programmer: Osvaldo Santamaria MD CBCon 10-18-2023 Erythrocyte distribution width (RBC) [Ratio] 12.6 % Normal 11.8-14.4 [facility] Comment on above: Performed By: #### G LYHGB, AHCV #### [address] [phone] Cnc Machine Programmer: Osvaldo Santamaria MD #### CP, CBC #### [address] [place], [place] 5384983 [employer]nc Machine Programmer: Yelena Greco MD Hematocrit (Bld) [Volume fraction] 41.7 % Normal 36.3-47.1 [facility] Comment on above: Performed By: #### G LYHGB, AHCV #### [address] [phone] [employer] Programmer: Osvaldo Santamaria MD #### CP, CBC #### [address] [place] 1978183 Cnc Machine Programmer: Yelena Greco MD Hemoglobin (Bld) [Mass/Vol] 13.7 g/dL Normal 11.9-15.1 [facility] Comment on above: Performed By: #### G LYHGB, AHCV #### [address] [id number] C[employer] Machine Programmer: Osvaldo Santamaria MD #### CP, CBC #### [address] [place] 1978183 Cnc Machine Programmer: Yelena Greco MD MCH (RBC) [Entitic mass] 29.1 pg Normal 25.2-33.5 [facility] Comment on above: Performed By: #### G LYHGB, AHCV #### [address] [phone] [employer] Machine Programmer: Osvaldo Santamaria MD #### CP, CBC #### [address] [place] 4581683 Cnc Machine Programmer: Yelena Greco MD MCHC (RBC) [Mass/Vol] 32.9 g/dL Normal 28.4-34.8 [facility] Comment on above: Performed By: #### G LYHGB, AHCV #### [address] [id number] [employer] Machine Programmer: Osvaldo Santamaria MD #### CP, CBC #### [address] [place] 4581683 Cnc Machine Programmer: Yelena Gerco MD MCV (RBC) [Entitic vol] 88.7 fL Normal 82.6-102.9 [facility] Comment on above: Performed By: #### G LYHGB, AHCV #### [address] [phone] [employer] Machine Programmer: Osvaldo Santamaria MD #### CP, CBC #### [address] [place] 4581683 Cnc Machine Programmer: Yelena Greco MD NRBC Automated 0.0 per 100 WBC Normal 0.0 [facility] Comment on above: Performed By: #### G LYHGB, AHCV #### [address] [phone] [employer] Machine Programmer: Osvaldo Santamaria MD #### CP, CBC #### [address] [place] 4581683 [employer] Machine Programmer: Yelena Greco MD Platelet mean volume (Bld) [Entitic vol] 8.3 fL Normal 8.1-13.5 [facility] Comment on above: Performed By: #### G LYHGB, AHCV #### [address] 5958008 [employer] Machine Programmer: Osvaldo Santamaria MD #### CP, CBC #### [address] [place], [place] 1743283 Cnc Machine Programmer: Yelena Greco MD Platelets (Bld) [#/Vol] 332 10*3/uL Normal 138-453 [facility] Comment on above: Performed By: #### G LYHGB, AHCV #### [address] [place] [address] Cnc Machine Programmer: Osvaldo Santamaria MD #### CP, CBC #### [address] [place], [place] 9701583 [employer] Machine Programmer: Yelena Greco MD RBC (Bld) [#/Vol] 4.70 10*6/uL Normal 3.95-5.11 [facility] Comment on above: Performed By: #### G LYHGB, AHCV #### [address] [address] Cnc Machine Programmer: Osvaldo Santamaria MD #### CP, CBC #### [address] [place], [place] 5736583 [employer] Machine Programmer: Yelena Greco MD WBC (Bld) [#/Vol] 7.1 10*3/uL Normal 3.5-11.3 [facility] Comment on above: Performed By: #### G LYHGB, AHCV #### [address] [address] Cnc Machine Programmer: Osvaldo Santamaria MD #### CP, CBC #### [address] [place], [place] 1416583 [employer] Machine Programmer: Yelena Greco MD Comp Metabolic Profon 2023 Albumin [Mass/Vol] 4.7 g/dL Normal 3.5-5.2 [facility] Comment on above: Performed By: #### C P, CBC #### [address] [place], [place] 8884983 [employer] Machine Programmer: Yelena Greco MD #### FEBC #### [facility] [address] [place] [address] Cnc Machine Programmer: Osvaldo Santamaria MD Albumin/Glob Ratio 1.4 Normal 1.0-2.5 [facility] Comment on above: Performed By: #### C P, CBC #### [facility] [address] [place], [place] 3298183 Cnc Machine Programmer: Yelena Greco MD #### FEBC #### [address] [address] Cnc Machine Programmer: Osvaldo Santamaria MD Alkaline Phos 90 U/L Normal 35-104 [facility] Comment on above: Performed By: #### C P, CBC #### [facility] [address] [place], [place] 8724783 Cnc Machine Programmer: Yelena Greco MD #### FEBC #### [address] [address] Cnc Machine Programmer: Osvaldo Santamaria MD ALT [Catalytic activity/Vol] 46 U/L High 5-33 [facility] Comment on above: Performed By: #### C P, CBC #### [facility] [address] [place], [place] 3711183 [employer] Machine Programmer: Yelena Greco MD #### FEBC #### [address] [address] Cnc Machine Programmer: Osvaldo Santamaria MD Anion gap [Moles/Vol] 10 mmol/L Normal 9-17 [facility] Comment on above: Performed By: #### C P, CBC #### [facility] [address] [place], [place] 6231583 [employer] Machine Programmer: Yelena Greco MD #### FEBC #### [address] [address] Cnc Machine Programmer: Osvaldo Santamaria MD AST [Catalytic activity/Vol] 26 U/L Normal <32 [facility] Comment on above: Performed By: #### C P, CBC #### [facility] [address] [place], [place] 1110083 C[employer] Machine Programmer: Yelena Greco MD #### FEBC #### [address] [address] Cnc Machine Programmer: Osvaldo Santamaria MD Bilirubin [Mass/Vol] 0.2 mg/dL Low 0.3-1.2 [facility] Comment on above: Performed By: #### C P, CBC #### [facility] [address] [place], [place] 7612983 C[employer] Machine Programmer: Yelena Greco MD #### FEBC #### [address] [address] Cnc Machine Programmer: Osvaldo Santamaria MD BUN/CRE Ratio 36 High 9-20 [facility] Comment on above: Performed By: #### C P, CBC #### [facility] [address] [place], [place] 7336783 C[employer] Machine Programmer: Yelena Greco MD #### FEBC #### [address] [address] Cnc Machine Programmer: Osvaldo Santamaria MD Calcium [Mass/Vol] 9.3 mg/dL Normal 8.6-10.4 [facility] Comment on above: Performed By: #### C P, CBC #### [facility] [address] [place], [place] 0654283 C[employer] Machine Programmer: Yelena Greco MD #### FEBC #### [address] [address] Cnc Machine Programmer: Osvaldo Santamaria MD Chloride [Moles/Vol] 104 mmol/L Normal 98-107 [facility] Comment on above: Performed By: #### C P, CBC #### [facility] [address] [place], [place] 0153583 Cnc Machine Programmer: Yelena Greco MD #### FEBC #### [facility] [address] [place], [place] 6276008 Cnc Machine Programmer: Osvaldo Santamaria MD CO2 [Moles/Vol] 24 mmol/L Normal 20-31 [facility] Comment on above: Performed By: #### C P, CBC #### [facility] [address] [place], [place] 1265683 Cnc Machine Programmer: Yelena Greco MD #### FEBC #### [facility] [address] [place], [place] 6717508 Cnc Machine Programmer: Osvaldo Santamaria MD Creatinine [Mass/Vol] 0.5 mg/dL Normal 0.5-0.9 [facility] Comment on above: Performed By: #### C P, CBC #### [address] [place] [address] Cnc Machine Programmer: Yelena Greco MD #### FEBC #### [facility] [address] [place], [place] 3849408 Cnc Machine Programmer: Osvaldo Santamaria MD GFR/1.73 sq M.predicted among non-blacks MDRD (S/P/Bld) [Vol rate/Area] mL/min/{1.73_m2} Normal >60 [facility] Comment on above: Result Comment: These results are not intended for use in patients <18 years of age. eGFR results are calculated without a race factor using the 2020 CKD-EPI equation. Careful clinical correlation is recommended, particularly when comparing to results calculated using previous equations. The CKD-EPI equation is less accurate in patients with extremes of muscle mass, extra-renal metabolism of creatine, excessive creatine ingestion, or following therapy that affects renal tubular secretion. Performed By: #### C P, CBC #### [facility] [address] [place], [place] 1461183 Cnc Machine Programmer: Yelena Greco MD #### FEBC #### [address] [place], [place] 4506908 Cnc Machine Programmer: Osvaldo Santamaria MD Glucose [Mass/Vol] 97 mg/dL Normal 70-99 [facility] Comment on above: Performed By: #### C P, CBC #### [facility] [address] [place] [address] [address] [place], [place] 0585483 [employer] Machine Programmer: Yelena Greco MD #### FEBC #### [address] [address] Cnc Machine Programmer: Osvaldo Santamaria MD Potassium [Moles/Vol] 4.3 mmol/L Normal 3.7-5.3 [facility] Comment on above: Performed By: #### C P, CBC #### [address] [place], [place] 9661483 [employer] Programmer: Yelena Greco MD #### FEBC #### [address] [address] [employer] Machine Programmer: Osvaldo Santamaria MD Protein [Mass/Vol] 8.1 g/dL Normal 6.4-8.3 [facility] Comment on above: Performed By: #### C P, CBC #### [address] [place], [place] [id number] [employer] Programmer: Yelena Greco MD #### FEBC #### [address] [address] [employer] Programmer: Osvaldo Santamaria MD Sodium [Moles/Vol] 138 mmol/L Normal 135-144 [facility] Comment on above: Performed By: #### C P, CBC #### [address] [place], [place] [id number] [employer] Programmer: Yelena Greco MD #### FEBC #### [address] [place] [address] [employer] Machine Programmer: Osvaldo Santamaria MD Urea nitrogen [Mass/Vol] 18 mg/dL Normal 6-20 [facility] Comment on above: Performed By: #### C P, CBC #### [facility] [address] [place] [address] [address] [place], [place] [id number] [employer] Programmer: Yelena Greco MD #### FEBC #### [address] [address] [employer] Programmer: Osvaldo Santamaria MD Hemoglobin A1Con 10-18-2023 Glucose [Mass/Vol] 108 mg/dL Normal [facility] Comment on above: Result Comment: The ADA and AACC recommend providing the estimated average glucose result to permit better patient understanding of their HBA1c result. Performed By: #### C P, CBC #### [address] [place], [place] [id number] [employer] Programmer: Yelena Greco MD #### FEBC #### [address] [address] [employer] Programmer: Osvaldo Santamaria MD HbA1c (Bld) [Mass fraction] 5.4 % Normal 4.0-6.0 [facility] Comment on above: Performed By: #### C P, CBC #### [facility] [address] [place] [address] [place] [place], [place] [id number] [employer] Programmer: Yelena Greco MD #### FEBC #### [address] [address] [employer] Programmer: Osvaldo Santamaria MD Hep C Abon 10-18-2023 Hep C Ab Non-Reactive Normal NR [facility] Comment on above: Result Comment: The hepatitis C procedure used in our laboratory is a Chemiluminescent test specific for three recombinant HCV antigens. A negative anti-HCV result indicates that the antibodies to hepatitis C virus are not present at this time. Individuals with reactive anti-HCV should be considered infected and infectious until proven otherwise. Confirmation of all equivocal or reactive results is recommended by ordering HCV RNA by PCR. Performed By: #### C P, CBC #### [facility] [address] [place] [address] [employer] Machine Programmer: Yelena Greco MD #### FEBC #### [address] [address] [employer] Machine Programmer: Osvaldo Santamaria MD Lipid Profileon 10-18-2023 Cholesterol [Mass/Vol] 272 mg/dL High 0-199 [facility] Comment on above: Result Comment: Cholesterol Guidelines: <200 Desirable 200-240 Borderline >240 Undesirable Performed By: #### L IPR #### [address] [address] [employer] Machine Programmer: Osvaldo Santamaria MD Cholesterol in HDL [Mass/Vol] 38 mg/dL Low >40 [facility] Comment on above: Result Comment: HDL Guidelines: <40 Undesirable 40-59 Borderline >59 Desirable Performed By: #### L IPR #### [address] [address] [employer] Programmer: Osvaldo Santamaria MD Cholesterol in LDL [Mass/Vol] 191 mg/dL High 0-100 [facility] Comment on above: Result Comment: LDL Guidelines: <100 Desirable 100-129 Near to/above Desirable 130-159 Borderline >159 Undesirable Direct (measured) LDL and calculated LDL are not interchangeable tests. Performed By: #### L IPR #### [address] [address] [employer] Programmer: Osvaldo Santamaria MD Cholesterol in VLDL [Mass/Vol] 43 mg/dL Normal [facility] Comment on above: Performed By: #### L IPR #### [address] [address] [employer] Machine Programmer: Osvaldo Santamaria MD Cholesterol.total/Ch olesterol in HDL [Mass ratio] 7.0 {ratio} Normal [facility] Comment on above: Performed By: #### L IPR #### [facility] [address] [place], [place] [phone] [employer] Machine Programmer: Osvaldo Santamaria MD Triglyceride [Mass/Vol] 217 mg/dL High <150 [facility] Comment on above: Result Comment: Triglyceride Guidelines: <150 Desirable 150-199 Borderline 200-499 High >499 Very high Based on AHA Guidelines for fasting triglyceride, April 2012. Performed By: #### L IPR #### [facility] [address] [place] [address] Cnc Machine Programmer: Osvaldo Santamaria MD TSH w/reflex to FT4on 2023 Thyroid Stim. Horm. 0.85 uIU/mL Normal 0.30-5.00 [facility] Comment on above: Performed By: #### T SHX #### [facility] [address] [place] [address] [employer]nc Machine Programmer: Yelena Greco MD Office Visiton 07-11-2023 Follow-up visit [id number] Vinny Downey 2000 F Date Provider Department Center 07/11/2023 RAJENDRA GUNN SAMSON Mccormick Family History Problem Relation Age of Onset Anemia Mother Supraventricular tachycardia Father Hyperlipidemia Father Diabetes Sister Family Status - Relation Status Age at Mother Father Sister Level of Service:30594 [place] OFFICE/OUTPATIENT NEW MODERATE MDM 45 MINUTES Normal [facility] Office Visiton 03-20-2023 Follow-up visit [id number] Vinny Downey 2000 F Date Provider Department Center 03/20/2023 ISRAEL ULLOA SAMSON Mccormick Family History Problem Relation Age of Onset Anemia Mother Supraventricular tachycardia Father Hyperlipidemia Father Diabetes Sister Family Status - Relation Status Age at Mother Father Sister Level of Service:29124 UT OFFICE/OUTPATIENT NEW LOW MDM 30-44 MINUTES Normal [facility] US PREG BIOPHY W NON STRESSo n 12-20-2022 US PREG BIOPHY W NON STRESS EXAMINATION: US PREG BIOPHY W NON STRESS HISTORY: Large for gestation age fetus COMPARISON: No relevant comparison available. TECHNIQUE: Ultrasound biophysical profile was performed in the radiology department. FINDINGS: BREATHING MOVEMENTS: 2.0 GROSS BODY MOVEMENTS: 2.0 TONE: 2.0 QUALITATIVE AMNIOTIC FLUID VOLUME: 2.0 PRESENTATION: Cephalic HEART RATE: 129.8 bpm H.B./min AMNIOTIC FLUID VOLUME: 12.2 cm cm GESTATIONAL AGE: 34 weeks 2 days CONCLUSION: Total biophysical profile score: 8.0 Electronically authenticated by: YELENA CARLOS Date: 2022-12-20 07:03 Normal [facility] US PREG PLACENTAon US PREG PLACENTA EXAMINATION: US PREG PLACENTA HISTORY: Left flank pain ; fell down steps COMPARISON: Ultrasound growth 12/10/2022 FINDINGS: PLACENTA: Anterior, grade 1, without previa. 2.9 x 2.0 x 1.5 cm hypoechoic area favoring a venous gonzales. CERVIX LENGTH: HEART RATE: 118 bpm OTHER: Nuchal cord. Cephalic presentation GA: 33 weeks 4 days JOCELIN: 01/26/2023 IMPRESSION: 1. Single live intrauterine . 2. Anterior placenta without previa. No subchorionic hematoma or abruption. 3. Nuchal cord. Electronically authenticated by: LUIS ALFREDO GRANT Date: 2022-12-12 14:56 Normal [facility] US PREG BIOPHY W NON STRESSo n 12-11-2022 US PREG BIOPHY W NON STRESS EXAMINATION: US PREG BIOPHY W NON STRESS HISTORY: Excessive growth affecting management of mother COMPARISON: Ultrasound anatomy 09/10/2022 FINDINGS: BREATHING MOVEMENTS: 2.0 GROSS BODY MOVEMENTS: 2.0 TONE: 2.0 QUALITATIVE AMNIOTIC FLUID VOLUME: 2.0 PRESENTATION: Cephalic HEART RATE: 130.4 bpm bpm. AMNIOTIC FLUID VOLUME: 14.9 cm GESTATIONAL AGE: 33 weeks 2 days CONCLUSION: Total biophysical profile score 8.0. Electronically authenticated by: LUIS ALFREDO GRANT Date: 2022-12-11 04:08 Normal [facility] US PREG GROWTHon 12-11-2022 US PREG GROWTH EXAMINATION: US PREG GROWTH HISTORY: High weight COMPARISON: Ultrasound anatomy 09/10/2022 FINDINGS: Heart Rate: 130.4 bpm Number: 1.0 Position: Cephalic Amniotic Fluid Volume: 14.9 cm Maximum Vertical Pocket: 5.9 cm Complete BIOMETRY: BPD: 8.0 cm cm; 32 weeks 2 days; 19% HC: 29.2 cmcm; 32 weeks 1 days; less than 3% AC: 31.5 cm cm; 35 weeks 3 days; 95% FL: 6.5 cm cm; 33 weeks 3 days; 42% EFW: 2369.4 grams; 70% FL/AC: 20.6 FL/BPD: 80.4 HC/AC: 0.9 GESTATIONAL AGE: Age by EDC: 33 weeks 2 days JOCELIN by EDC: 01/26/2023 Age by US: 33 weeks 2 days JOCELIN by US: 01/26/2023 IMPRESSION: 1. Single live intrauterine with growth detailed above. 2. Head circumference is less than 3rd percentile. Electronically authenticated by: LUIS ALFREDO GRANT Date: 2022-12-11 04:06 Normal [facility] GTT 3 HR PREGon 10-22-2022 Glucose [Mass/Vol] 98 mg/dL Normal 74-106 [facility] Comment on above: Performed By: #### G TT3P #### [facility] [address] [place] [address] Dr. Emilee Springer Glucose [Mass/Vol] 170 mg/dL Normal [facility] Comment on above: Performed By: #### G TT3P #### [facility] [address] [address] [address] Emilee Springer Glucose [Mass/Vol] 201 mg/dL Normal [facility] Comment on above: Performed By: #### G TT3P #### [facility] [address] [place] [address] Dr. Emilee Springer Glucose [Mass/Vol] 115 mg/dL Normal [facility] Comment on above: Performed By: #### G TT3P #### [facility] [address] [place] [address] Dr. Emilee Springer US PREG INCOMPLETE ANATOMYon 10-16-2022 PREG INCOMPLETE ANATOMY EXAM: US PREG INCOMPLETE ANATOMY HISTORY: screening COMPARISON: 09/10/2022 TECHNIQUE: Transabdominal FINDINGS: position: Transverse, head to the maternal right Heart rate: 157 bpm Normal observed anatomy: Nose/lips, four-chamber heart, left ventricular outflow tract, right ventricular outflow tract, spine IMPRESSION: Normal observed anatomy Electronically authenticated by: YELENA CARLOS Date: 2022-10-16 08:44 Normal [facility] CBC AUTO DIFFon 10-15-2022 BASO # 0.0 103/ul Normal 0.0-0.1 [facility] Comment on above: Performed By: #### C BC #### [facility] [address] [place] [address] Dr. Emilee Springer Basophils/100 WBC (Bld) 0.2 % Normal 0.2-2.0 [facility] Comment on above: Performed By: #### C BC #### [facility] [address] [address] [address] Emilee Springer EO # 0.1 103/ul Normal 0.0-0.7 [facility] Comment on above: Performed By: #### C BC #### [facility] [address] [place] [address] Dr. Emilee Springer Eosinophils/100 WBC (Bld) 0.8 % Critically low 0.9-7.0 [facility] Comment on above: Performed By: #### C BC #### [facility] [address] [place] [address] Dr. Emilee Springer Erythrocyte distribution width (RBC) [Ratio] 12.5 % Normal 11.0-15.0 [facility] Comment on above: Performed By: #### C BC #### [facility] [address] [place] [address] Dr. Emilee Springer Hematocrit (Bld) [Volume fraction] 29.8 % Critically low 36.0-48.0 [facility] Comment on above: Performed By: #### C BC #### [facility] [address] [place] [address] Dr. Emilee Springer Hemoglobin (Bld) [Mass/Vol] 10.0 g/dL Critically low 12.0-16.0 [facility] Comment on above: Performed By: #### C BC #### [facility] [address] [place] [address] Dr. Emilee Springer IG # 0.05 10e3/ul Critically high 0.00-0.03 [facility] Comment on above: Performed By: #### C BC #### [facility] [address] [place] [address] Dr. Emilee Springer IG % 0.5 % Normal 0.0-0.5 [facility] Comment on above: Performed By: #### C BC #### [facility] [address] [place] [address] Dr. Emilee Springer LYMPH # 1.6 103/ul Normal 1.2-3.8 [facility] Comment on above: Performed By: #### C BC #### [facility] [address] [place] [address] Dr. Emilee Springer Lymphocytes/100 WBC (Bld) 15.3 % Critically low 20.5-60.0 [facility] Comment on above: Performed By: #### C BC #### [facility] [address] [place] [address] Dr. Emilee Springer MANUAL DIFF REQ NO Normal [facility] Comment on above: Performed By: #### C BC #### [facility] [address] [place] [address] Dr. Emilee Springer MCH (RBC) [Entitic mass] 30.2 pg Normal 26.7-34.0 [facility] Comment on above: Performed By: #### C BC #### [facility] [address] [place] [address] Dr. Emilee Springer MCHC (RBC) [Mass/Vol] 33.6 g/dL Normal 29.9-35.2 [facility] Comment on above: Performed By: #### C BC #### [facility] [address] [place] [address] Dr. Emilee Springer MCV (RBC) [Entitic vol] 90.0 fL Normal 81.0-99.0 [facility] Comment on above: Performed By: #### C BC #### [facility] [address] [place] [address] Dr. Emilee Springer MONO # 0.6 103/ul Normal 0.3-0.8 [facility] Comment on above: Performed By: #### C BC #### [facility] [address] [address] [address] Emilee Springer Monocytes/100 WBC (Bld) 5.8 % Normal 1.7-12.0 [facility] Comment on above: Performed By: #### C BC #### [facility] [address] [address] [address] Emilee Springer NEUT # 8.2 103/ul Critically high 1.4-6.5 [facility] Comment on above: Performed By: #### C BC #### [facility] [address] [address] [address] Emilee Springer Neutrophils/100 WBC (Bld) 77.4 % Critically high 43.0-75.0 [facility] Comment on above: Performed By: #### C BC #### [facility] [address] [place] [address] Dr. Emilee Springer Platelet mean volume (Bld) [Entitic vol] 8.5 fL Critically low 9.5-13.5 [facility] Comment on above: Performed By: #### C BC #### [facility] [address] [address] [address] Emilee Springer PLT 347 103/ul Normal 150-450 [facility] Comment on above: Performed By: #### C BC #### [facility] [address] [place] [address] Dr. Emilee Springer RBC 3.31 106/ul Critically low 4.20-5.40 [facility] Comment on above: Performed By: #### C BC #### [facility] [address] [place] [address] Dr. Emilee Springer WBC 10.6 103/ul Normal 4.0-11.0 [facility] Comment on above: Performed By: #### C BC #### [facility] [address] [place] [address] Dr. Emilee Springer GLUCOSE - 1HRon 10-15-2022 Glucose [Mass/Vol] 176 mg/dL Critically high 74-106 [facility] Comment on above: Performed By: #### G LU1HR #### [facility] [address] [address] [address] Emilee Springer CHLAMYDIA/GONOCOCCUS ANISA (SW AB/URINE/PAPon 09-15-2022 Chlamydia trachomatis, ANISA Negative Normal Negative [facility] Comment on above: Performed By: #### C BC #### [facility] [address] [address] [address] Emilee Springer Neisseria gonorrhoeae, ANISA Negative Normal Negative [facility] Comment on above: Performed By: #### C BC #### [facility] [address] [address] [address] Emilee Springer VAGINITIS/VAGINOSIS DNA PROB Leonid 09-14-2022 Sharon species Negative Normal Negative [facility] Comment on above: Performed By: #### C BC #### [facility] [address] [place] [address] Dr. Emilee Springer Gardnerella vaginalis Negative Normal Negative [facility] Comment on above: Performed By: #### C BC #### [facility] [address] [address] [address] Emilee Springer Trichomonas vaginalis Negative Normal Negative [facility] Comment on above: Performed By: #### C BC #### [facility] [address] [place] [address] Dr. Emilee Springer US PREG ANATOMY SINGLEon US PREG ANATOMY SINGLE EXAMINATION: US PREG ANATOMY SINGLE HISTORY: screening COMPARISON: No relevant comparison available. TECHNIQUE: Transabdominal sonographic examination was performed for obstetrical and evaluation. FINDINGS: Number: 1 Heart Rate: 152.5 bpm H.B. /min Amniotic Fluid Volume: Subjectively normal Placental Location: Anterior with lower margin 4.7 cm from os. Cervix Length: 4.6 cm, closed. ANATOMY: Normal Structures -cerebellum, choroid plexus, cisterna magna, lateral cerebral ventricles, orbits, midline falx, stomach, kidneys, bladder, umbilical cord insertion into abdomen, three-vessel cord, right upper extremity, left upper extremity, right lower extremity, left lower extremity. SUBOPTIMALLY SEEN: Hard palate, four-chamber heart, cardiac outflow tracts, spine ABNORMALITIES: None BIOMETRY: BPD: 4.6 cm 19 weeks 6 days HC: 17.3 cm 19 weeks 6 days AC: 16.2 cm 21 weeks 2 days FL: 3.1 cm 19 weeks 4 days EFW:353.3 grams; 54% FL/AC: 19.1 FL/BPD: 67.4 HC/AC: 1.1 GESTATIONAL AGE: Age by EDC: 20 weeks 2 days JOCELIN by EDC: 01/26/2023 Age by current US: 20 weeks 1 days JOCELIN by current US: 01/27/2023 IMPRESSION: 1. Single live intrauterine with growth detailed above. 2. Suboptimal visualization of the hard palate, four-chamber heart, cardiac outflow tracts, and spine due to position. Electronically authenticated by: LUIS ALFREDO GRANT Date: 2022-09-13 16:57 Normal [facility] AFP MATERNAL FOR SPINA BIFID Aon 08-31-2022 AFP MoM 0.42 Normal [facility] Comment on above: Performed By: #### A FPMAT #### [facility] [address] [address] [address] Emilee Springer AFP Value 16.7 ng/mL Normal [facility] Comment on above: Performed By: #### A FPMAT #### [facility] [address] [address] [address] Emilee Springer AFP, Serum for Spina Bifida Report Normal [facility] Comment on above: Performed By: #### A FPMAT #### [facility] [address] [address] [address] Emilee Springer Comment Comment Normal [facility] Comment on above: Result Comment: Darío Machado, Ph.D., [facility] Director . References: Available Upon Request. . Multiples Of Median Cutoffs For AFP Elevations Berkowitz 2.5 Black 2.8 IDD 2.0 Twins 4.5 Abbreviation Definitions IDD - Insulin Dep Diabetes OSBR - Open Spina Bifida Risk . For further inquiries contact [employer] [facility] at [phone]. . This test was developed and its performance characteristics determined by [employer]. It has not been cleared or approved by the Food and Drug Administration. Performed By: #### A FPMAT #### [facility] [address] [place] [address] Dr. Emilee Springer Gest Age Collection Date 18.6 weeks Normal [facility] Comment on above: Performed By: #### A FPMAT #### [facility] [address] [address] [address] Emilee Springer Gestat, Age Based on JOCELIN [facility] Comment on above: Result Comment: 12/2022 Recalculations are not recommended when gestational dating by LMP and ultrasound are within 10 days. Performed By: #### A FPMAT #### [facility] [address] [address] [address] Emilee Springer Insulin Dep Diabetes Comment Normal [facility] Comment on above: Result Comment: Not provided. . Performed By: #### A FPMAT #### [facility] [address] [place] [address] Dr. Emilee Springer Interpretation Comment Normal [facility] Comment on above: Result Comment: Inte rpretation: Screen Negative . This result is screen negative for OSB. The AFP MoM calculated is based on the gestational age provided. MS-AFP can identify up to 80% of open neural tube defects. Closed neural tube defects and some open defects may not be detected by this test. This test does not screen for Down Syndrome or Trisomy 18. If screening for Down Syndrome or Trisomy 18 is desired, contact [employer] to discuss available options. The [employer] recommends amniocentesis be offered to women age 35 and older. Performed By: #### A FPMAT #### [facility] [address] [place] [address] Dr. Emilee Springer [age] Normal [facility] Comment on above: Performed By: #### A FPMAT #### [facility] [id number] Emilee Springer Multiple Gestation Comment Normal [facility] Comment on above: Result Comment: Not provided. . Performed By: #### A FPMAT #### [facility] [address] [address] [address] Emilee Springer OS[place] [address] Normal [facility] Comment on above: Performed By: #### A FPMAT #### [facility] [address] [address] [address] Emilee Springer PDF . Normal [facility] Comment on above: Performed By: #### A FPMAT #### [facility] [address] [address] [address] Emilee Springer Race Comment Normal [facility] Comment on above: Result Comment: Not provided. . Performed By: #### A FPMAT #### [facility] [address] [address] [address] Emilee Springer Test Results: Negative Normal [facility] Comment on above: Performed By: #### A FPMAT #### [facility] [address] [address] [address] Emilee Springer Rubella antibody, IgGon 01-0 Rubella virus IgG Ql (S) 314.5 IU/mL [facility] Comment on above: REFERENCE RANGE: <5.0 NON-REACTIVE (non-immune) 5.0 TO 9.9 EQUIVOCAL >=10.0 REACTIVE (immune) [facility] HEP B SURFACE ANTIGEN SCREEN on 07-05-2022 HBsAg Screen Negative Normal Negative [facility] Comment on above: Performed By: #### H BSANS #### [facility] [address] [place] [address] Dr. Emilee Springer HEPATITIS C VIRUS AB W/ REFL EX QUANTon 07-05-2022 HCV AB <0.1 Normal 0.0-0.9 [facility] Comment on above: Performed By: #### H CVPCRR #### [facility] [address] [place] [address] Dr. Emilee Springer Interpretation: Comment Normal [facility] Comment on above: Result Comment: Nega tive Not infected with HCV, unless recent infection is suspected or other evidence exists to indicate HCV infection. Performed By: #### H CVPCRR #### [facility] [address] [place] [address] Dr. Emilee Springer HIV 1 AND 2 WITH REFLEXon HIV Screen 4th Generation wRfx Non-Reactive Normal Non Reactive [facility] Comment on above: Result Comment: HIV Negative HIV-1/HIV-2 antibodies and HIV-1 p24 antigen were NOT detected. There is no laboratory evidence of HIV infection. Performed By: #### C BC #### [facility] [address] [place] [address] Dr. Emilee Springer RPR QUANTon 07-05-2022 Rapid Plasma Reagin, Quant Non-Reactive Normal NonRea<1:1 [facility] Comment on above: Result Comment: Plea se Note: This test does not meet current guidelines for screening and diagnosis of syphilis. This test is intended for following treatment response in patients being treated for syphilis infection. To screen for syphilis infection, a reflex cascade that includes both RPR and a treponema-specific assay should be utilized, such as Treponema pallidum (Syphilis) Screening Pepin (152226) or Rapid Plasma Reagin (RPR) Test With Reflex to Quantitative RPR and Confirmatory Treponema pallidum Antibodies (082679). Performed By: #### C BC #### [facility] [address] [place] [address] Dr. Emilee Springer RUBELLA AB IGGon 07-05-2022 Rubella Antibodies, IgG 5.03 index Normal Immune >0.99 [facility] Comment on above: Result Comment: Non- immune <0.90 Equivocal 0.90 - 0.99 Immune >0.99 Performed By: #### R UBIGG #### [facility] [address] [place] [address] Dr. Emilee Springer CBC AUTO DIFFon 07-04-2022 BASO # 0.0 103/ul Normal 0.0-0.1 [facility] Comment on above: Performed By: #### G LU1HR #### [facility] [address] [place] [address] Dr. Emilee Springer Basophils/100 WBC (Bld) 0.2 % Normal 0.2-2.0 [facility] Comment on above: Performed By: #### G LU1HR #### [facility] [address] [place] [address] Dr. Emilee Springer EO # 0.1 103/ul Normal 0.0-0.7 [facility] Comment on above: Performed By: #### G LU1HR #### [facility] [address] [place] [address] Dr. Emilee Springer Eosinophils/100 WBC (Bld) 0.9 % Normal 0.9-7.0 [facility] Comment on above: Performed By: #### G LU1HR #### [facility] [address] [place] [address] Dr. Emilee Springer Erythrocyte distribution width (RBC) [Ratio] 11.9 % Normal 11.0-15.0 [facility] Comment on above: Performed By: #### G LU1HR #### [facility] [address] [place] [address] Dr. Emilee Springer Hematocrit (Bld) [Volume fraction] 32.9 % Critically low 36.0-48.0 [facility] Comment on above: Performed By: #### G LU1HR #### [facility] [address] [place] [address] Dr. Emilee Springer Hemoglobin (Bld) [Mass/Vol] 11.6 g/dL Critically low 12.0-16.0 [facility] Comment on above: Performed By: #### G LU1HR #### [facility] [address] [place] [address] Dr. Emilee Springer IG # 0.03 10e3/ul Normal 0.00-0.03 [facility] Comment on above: Performed By: #### G LU1HR #### [facility] [address] [place] [address] Dr. Emilee Springer IG % 0.3 % Normal 0.0-0.5 [facility] Comment on above: Performed By: #### G LU1HR #### [facility] [address] [place] [address] Dr. Emilee Springer LYMPH # 2.1 103/ul Normal 1.2-3.8 [facility] Comment on above: Performed By: #### G LU1HR #### [facility] [address] [place] [address] Dr. Emilee Springer Lymphocytes/100 WBC (Bld) 20.2 % Critically low 20.5-60.0 [facility] Comment on above: Performed By: #### G LU1HR #### [facility] [address] [place] [address] Dr. Emilee Springer MANUAL DIFF REQ NO Normal [facility] Comment on above: Performed By: #### G LU1HR #### [facility] [address] [place] [address] Dr. Emilee Springer MCH (RBC) [Entitic mass] 31.4 pg Normal 26.7-34.0 [facility] Comment on above: Performed By: #### G LU1HR #### [facility] [address] [place] [address] Dr. Emilee Springer MCHC (RBC) [Mass/Vol] 35.3 g/dL Critically high 29.9-35.2 [facility] Comment on above: Performed By: #### G LU1HR #### [facility] [address] [place] [address] Dr. Emilee Springer MCV (RBC) [Entitic vol] 89.2 fL Normal 81.0-99.0 [facility] Comment on above: Performed By: #### G LU1HR #### [facility] [address] [place] [address] Dr. Emilee Springer MONO # 0.7 103/ul Normal 0.3-0.8 [facility] Comment on above: Performed By: #### G LU1HR #### [facility] [address] [place] [address] Dr. Emilee Springer Monocytes/100 WBC (Bld) 7.0 % Normal 1.7-12.0 [facility] Comment on above: Performed By: #### G LU1HR #### [facility] [address] [place] [address] Dr. Emilee Springer NEUT # 7.5 103/ul Critically high 1.4-6.5 [facility] Comment on above: Performed By: #### G LU1HR #### [facility] [address] [address] [address] Emilee Springer Neutrophils/100 WBC (Bld) 71.4 % Normal 43.0-75.0 [facility] Comment on above: Performed By: #### G LU1HR #### [facility] [address] [place] [address] Dr. Emilee Springer Platelet mean volume (Bld) [Entitic vol] 9.1 fL Critically low 9.5-13.5 [facility] Comment on above: Performed By: #### G LU1HR #### [facility] [address] [place] [address] Dr. Emilee Springer PLT 311 103/ul Normal 150-450 [facility] Comment on above: Performed By: #### G LU1HR #### [facility] [address] [place] [address] Dr. Emilee Springer RBC 3.69 106/ul Critically low 4.20-5.40 [facility] Comment on above: Performed By: #### G LU1HR #### [facility] [address] [place] [address] Dr. Emilee Springer WBC 10.5 103/ul Normal 4.0-11.0 [facility] Comment on above: Performed By: #### G LU1HR #### [facility] [address] [place] [address] Dr. Emilee Springer CULTURE URINEon 07-04-2022 CULTURE URINE Culture Observations: LIGHT GROWTH OF MIXED GENITAL BREN. NO POTENTIAL PATHOGENS SEEN. Normal [facility] Comment on above: Performed By: #### G LU1HR #### [facility] [address] [place] [address] Dr. Emilee Springer GLYCOHEMOGLOBIN A1Con 2021 ADA RECOMMENDATION SEE BELOW Normal [facility] Comment on above: Result Comment: ADA RECOMMENDED LIMIT 4.0 - 6.0 ADA THERAPEUTIC TARGET < 7.0 ACTION SUGGESTED > 7.0 Performed By: #### A 1C #### [facility] [address] [place] [address] Dr. Emilee Springer Glucose [Mass/Vol] 108 mg/dL Normal [facility] Comment on above: Performed By: #### A 1C #### [facility] [address] [address] [address] Emilee Springer HbA1c (Bld) [Mass fraction] 5.4 % Normal 4.5-6.2 [facility] Comment on above: Performed By: #### A 1C #### [facility] [address] [address] [address] Emilee Springer ALLEN BOX TEST PT SEND OUTo n 07-04-2022 SENT TO REF LAB 07/04/2022 Normal [facility] Comment on above: Performed By: #### N BOX #### [facility] [address] [address] [address] Emilee Springer TYPE AND SCREENon 07-04-2022 TYPE AND SCREEN Negative Normal [facility] Comment on above: Performed By: #### G LU1HR #### [facility] [address] [place] [address] Dr. Emilee Springer US PREG TVon 06-23-2022 US PREG TV EXAMINATION: US PREG TV HISTORY: test positive COMPARISON: 08/12/2021 FINDINGS: Berkowitz intrauterine gestation Gestational sac: 4.7 cm, 10 weeks 2 days CRL: 2.1 cm, 8 weeks 5 days Yolk sac: 2.2 mm Heart rate: 162 bpm Cervix: Closed, 4.2 cm The uterus is normal, anteverted The ovaries are normal Clinical age: 9 weeks 0 days Clinical JOCELIN: 01/26/2023 Ultrasound age: 9 weeks 4 days Ultrasound JOCELIN: 01/22/2023 IMPRESSION: Viable berkowitz intrauterine gestation measuring 9 weeks 4 days Electronically authenticated by: YELENA CARLOS Date: 2022-06-23 17:00 Normal [facility] HCG, Quantitative, on 06-02-2022 hCG Quant [id number] High NINF [facility] Comment on above: Non-preg premeno <=5 Postmeno <=8 Male <=3 If HCG results do not concur with clinical observations, additional testing to confirm results is recommended. Interpretation and review of laboratory results Abnormal [facility] PAP ACOG PANEL 2: 21 to 29on 04-24-2022 . . Normal [facility] Comment on above: Performed By: #### 4 [id number] #### [facility] [address] [address] [address] Emilee Springer Age Gdln ACOG Testing 21-29 [facility] Comment on above: Performed By: #### 4 [id number] #### [facility] [address] [place] [address] Dr. Emilee Springer DIAGNOSIS: Comment [facility] Comment on above: Result Comment: NEGA TIVE FOR INTRAEPITHELIAL LESION OR MALIGNANCY. CELLULAR CHANGES ASSOCIATED WITH INFLAMMATION ARE PRESENT. Performed By: #### 4 [id number] #### [facility] [address] [place] [address] Dr. Emilee Springer Methodology: Comment [facility] Comment on above: Result Comment: This liquid based ThinPrep(R) pap test was screened with the use of an image guided system. Performed By: #### 4 [id number] #### [facility] [address] [place] [address] Dr. Emilee Springer Note: Comment [facility] Comment on above: Result Comment: The Pap smear is a screening test designed to aid in the detection of premalignant and malignant conditions of the uterine cervix. It is not a diagnostic procedure and should not be used as the sole means of detecting cervical cancer. Both false-positive and false-negative reports do occur. . Performed By: #### 4 [id number] #### [facility] [address] [place] [address] Dr. Emilee Springer Performed by: Comment Normal [facility] Comment on above: Result Comment: Maynor Adams, [employer]ision C[employer] Manager Performed By: #### [id number] #### [facility] [address] [place] [address] Dr. Emilee Springer Reflex Criteria: Comment [facility] Comment on above: Result Comment: The HPV DNA reflex criteria were not met with this specimen result therefore, no HPV testing was performed. . Performed By: #### [id number] #### [facility] [address] [place] [address] Dr. Emilee Springer Specimen adequacy: Comment Normal [facility] Comment on above: Result Comment: Sati sfactory for evaluation. Endocervical and/or squamous metaplastic cells (endocervical component) are present. Performed By: #### 4 [id number] #### [facility] [address] [address] [address] Emilee Springer HCG, Quantitative, on 08-10-2021 hCG Quant 45 High <5 IU/L [facility] Comment on above: Non-preg premeno <=5 Postmeno <=8 Male <=3 If HCG results do not concur with clinical observations, additional testing to confirm results is recommended. Elevated results not associated with may be found in patients with other diseases such as tumors of the germ cells (testis, ovaries, etc.), bladder, pancreas, stomach, lungs, and liver. Interpretation and review of laboratory results Abnormal [facility] US RENAL COMPLETEOrdered By: Lorena Ricks on 11-25-2020 Unremarkable ultrasound of the kidneys and urinary bladder. [employer] Phone: EXAMINATION: RETROPERITONEAL ULTRASOUND OF THE KIDNEYS AND URINARY BLADDER 11/25/2020 COMPARISON: None HISTORY: ORDERING SYSTEM PROVIDED HISTORY: Frequent UTI TECHNOLOGIST PROVIDED HISTORY: This procedure can be scheduled via [employer]. Access your [employer] account by visiting [employer]. FINDINGS: Kidneys: The right kidney measures 11.1 cm in length and the left kidney measures 11.6 cm in length. Kidneys demonstrate normal cortical echogenicity. No evidence of hydronephrosis or intrarenal stones. Bladder: Unremarkable appearance of the bladder. No significant post void residual. [employer] Phone: [place], pn Incoming Radiant Results From [employer] - 11/25/2020 3:59 PM EDT EXAMINATION: RETROPERITONEAL ULTRASOUND OF THE KIDNEYS AND URINARY BLADDER 11/25/2020 COMPARISON: None HISTORY: ORDERING SYSTEM PROVIDED HISTORY: Frequent UTI TECHNOLOGIST PROVIDED HISTORY: This procedure can be scheduled via [employer]. Access your [employer] account by visiting [employer]. FINDINGS: Kidneys: The right kidney measures 11.1 cm in length and the left kidney measures 11.6 cm in length. Kidneys demonstrate normal cortical echogenicity. No evidence of hydronephrosis or intrarenal stones. Bladder: Unremarkable appearance of the bladder. No significant post void residual. IMPRESSION: Unremarkable ultrasound of the kidneys and urinary bladder. [facility] Work Phone: [employer] 10-14-2020 Forms [id number]# 1.00CD:127 Normal [facility] Ambulatory Clinical Summaryo n 10-13-2020 Ambulatory Clinical Summary {[id number]}CD:[id number] Normal [facility] General Surgery Office/Clini c Noteon 10-13-2020 General Surgery Office/Clinic Note Chief Complaint post operative follow up HPI Staff 8 day post operative follow up post lap appendectomy completed while in-patient at [facility]. Doing well. Minimal discomfort. Taking Ibuprofen 400mg 1-2 times per day. Denies nausea or vomiting. No bleeding or drainage from incision site. History of Present Illness 8 days s/p LS appendectomy; pathology consistent with acute appendicitis; doing well, mild soreness controlled with Ibuprofen; no drainage, from incisions; eating well, no N/V; no bowel changes, no fevers. Review of Systems PHQ Score Initial Depression Screen Score: 0 ROS - Provider Constitutional: no fever, no sweats, no weight loss. Eyes: no glasses, no blurred vision, no visual loss. ENMT: no dentures, no hoarseness, no swallowing difficulties, no hearing loss, no ear infection(s), no nose bleeds. Cardiovascular: normal blood pressure, no chest pain, regular heartbeat, no heart murmur. Respiratory: no shortness of breath, no cough, no asthma, no wheezing. Gastrointestinal: no nausea, no vomiting, no diarrhea, no constipation, no blood in stool, no change in bowel habits, mild abdominal pain, no hepatitis. Genitourinary: no kidney stones, no urine infection, no dysuria. Musculoskeletal: no pain, no weakness. Skin: no changing moles, no rash, no skin lumps. Neurologic: no seizures, no epilepsy, no headache. Psychiatric: no emotional or psychiatric problem. Heme/Lymph: no bleeding problems, no anemia, no blood clots, no transfusions. Allergy/Immunologic: no swollen lymph nodes/glands, no IV drug abuse. Other: Additional ROS info: Except as noted in the above Review of Systems and in the History of Present Illness, all other systems have been reviewed and are negative or noncontributory. Physical Exam Vitals & Measurements T: 37.0 ?C (Tympanic) RR: 16 BP: 126/84 HT: 167.64 cm HT: 167.6 cm WT: 81.2 kg WT: 81.2 kg BMI: 28.89 abd: soft, normal bs, nontender, nondistended, incisions without erythema or drainage, no ecchymoses. Assessment/Plan 1. Acute appendicitis (K35.80: Unspecified acute appendicitis) doing well; off tomorrow, ok to return to work Monday; no lifting > 10 lbs for an additional 3 weeks; call with problems/questions. Follow-up No qualifying data available Patient Education Exercise to Lose Weight, Onct-kc-Mstt Problem List/Past Medical History Ongoing Acute appendicitis Anxiety BMI 28.0-28.9,adult Seasonal allergies Historical No qualifying data Procedure/Surgical History Laparoscopic appendectomy (10/05/2020), Extraction of wisdom tooth. Medications Acidophilus Probiotic Blend, 1 cap(s), Oral, Daily cetirizine 10 mg Tab, 10 mg= 1 tab(s), Oral, Daily Ericka, 1 tab(s), Oral, Daily Zoloft 50 mg Tab, 50 mg= 1 tab(s), Oral, Daily Allergies No Known Allergies Social History Alcohol Current, Wine, 3-5 times per week, 10/13/2020 Substance Abuse - Denies Substance Abuse, 10/13/2020 Tobacco Never (less than 100 in lifetime) Tobacco Use:., 10/13/2020 Family History Family history is negative Normal [facility] Comment on above: Result Comment: Elec tronically Signed By: LATANYA MCKENNA, Sushant Babb\Date and Time Signed: 10/13/20 13:39 EDT Patient Educationon 10-14-19 Patient Education Exercise to Lose Weight Exercise and a healthy diet may help you lose weight. Your doctor may suggest specific exercises. EXERCISE IDEAS AND TIPS ? Choose low-cost things you enjoy doing, such as walking, bicycling, or exercising to workout videos. ? Take stairs instead of the elevator. ? Walk during your lunch break. ? Park your car further away from work or school. ? Go to a gym or an exercise class. ? Start with 5 to 10 minutes of exercise each day. Build up to 30 minutes of exercise 4 to 6 days a week. ? Wear shoes with good support and comfortable clothes. ? Stretch before and after working out. ? Work out until you breathe harder and your heart beats faster. ? Drink extra water when you exercise. ? Do not do so much that you hurt yourself, feel dizzy, or get very short of breath. Exercises that burn about 150 calories: ? Running 1 ? miles in 15 minutes. ? Playing volleyball for 45 to 60 minutes. ? Washing and waxing a car for 45 to 60 minutes. ? Playing touch football for 45 minutes. ? Walking 1 ? miles in 35 minutes. ? Pushing a stroller 1 ? miles in 30 minutes. ? Playing basketball for 30 minutes. ? Raking leaves for 30 minutes. ? Bicycling 5 miles in 30 minutes. ? Walking 2 miles in 30 minutes. ? Dancing for 30 minutes. ? Shoveling snow for 15 minutes. ? Swimming laps for 20 minutes. ? Walking up stairs for 15 minutes. ? Bicycling 4 miles in 15 minutes. ? Gardening for 30 to 45 minutes. ? Jumping rope for 15 minutes. ? Washing windows or floors for 45 to 60 minutes. Document Released: 08/12/2011 Document Revised: 10/01/2012 Document Reviewed: 08/12/2011 ExitCare? Patient Information ?[address] [facility] Provider Letter FTMCon 10-13 Provider Letter [facility] October 13, 2020 VINNY VERMA [address] [place] [address] VINNY VERMA 2000 To Whom It May Concern, Please excuse above patient from work 10/14/20. Sincerely, Dr. Sushant Lott MD General Surgery [facility] Pathology Noteon 10-08-2020 Pathology Note [id number] #1.00CD:127 Normal [facility] Facesheeton 10-07-2020 Facesheet [id number]#1.00CD:127 Normal [facility] Operative Reporton Operative Report [id number]# 1.00CD:127 Normal [facility] HIV Screenon 05-05-2020 HIV Ag/Ab NONREACTIVE NONREACTIVE [place] Comment on above: No laboratory eviden ce of HIV infection. If acute HIV infection is suspected, consider testing for HIV-1 RNA. Basic Metabolic Panelon 04-23 Anion gap [Moles/Vol] 11 mmol/L 9 - 17 mmol/L [place], [place] Bun/Cre Ratio 19 [place], [place] Calcium [Mass/Vol] 9.3 mg/dL 8.6 - 10. 4 mg/dL [place] Chloride [Moles/Vol] 103 mmol/L 98 - 107 mmol/L [place] CO2 [Moles/Vol] 23 mmol/L 20 - 31 mmol/L [place] Creatinine [Mass/Vol] 0.57 mg/dL 0.5 - 0.9 mg/dL [place] GFR >60 >60 mL/min [place], [place] GFR Non- >60 >60 mL/min [place] Glucose [Mass/Vol] 88 mg/dL 70 - 99 mg/dL [place], [place] Potassium [Moles/Vol] 4.6 mmol/L 3.7 - 5.3 mmol/L [place] Sodium [Moles/Vol] 137 mmol/L 135 - 144 mmol/L [place] Urea nitrogen [Mass/Vol] 11 mg/dL 6 - 20 mg/dL [place] CBCon 05-04-2020 Erythrocyte distribution width (RBC) [Ratio] 11.7 % Low 11.8 - 14.4 % [place] Hematocrit (Bld) [Volume fraction] 36.4 % 36.3 - 47.1 % [place] Hemoglobin (Bld) [Mass/Vol] 12.2 g/dL 11.9 - 15.1 g/dL [place] Interpretation and review of laboratory results Abnormal [place] MCH (RBC) [Entitic mass] 31.4 pg 25.2 - 33.5 pg [place] MCHC (RBC) [Mass/Vol] 33.5 g/dL 28.4 - 34.8 g/dL [place] MCV (RBC) [Entitic vol] 93.8 fL 82.6 - 102.9 fL [place] Platelet mean volume (Bld) [Entitic vol] 9.2 fL 8.1 - 13.5 fL [place] Platelets (Bld) [#/Vol] 307 10*3/uL [place] RBC (Bld) [#/Vol] 3.88 10*6/uL Low 3.95 - 5.1 1 m/uL [place] WBC (Bld) [#/Vol] 7.2 10*3/uL [place] WBC (Bld) [#/Vol] 0.0 10*3/uL 0.0 per 100 WBC M [place], [place] Metabolic Panelon 05-04-2020 GFR/1.73 sq M predicted among non-blacks MDRD (S/P/Bld) [Vol rate/Area] [place], [place] Comment on above: Stage 1: Some kidney damage normal GFR Stage 2: Mild kidney damage GFR 60-89 Stage 3: Moderate kidney damage GFR 30-59 Stage 4: Severe kidney damage GFR 15-29 Stage 5: Severe kidney damage GFR <15 ESRD - chronic treatment by dialysis or transplant Average GFR for 20-2 9 years old: 116 mL/min/1.73sq m Chronic Kidney Disease: <60 mL/min/1.73sq m Kidney failure: <15 mL/min/1.73sq m eGFR calculated using average adult body mass. Additional eGFR calculator available at: http://[email or web address].[email or web address]_crcl_2012.htm TSHon 05-04-2020 TSH Qn 2.22 m[IU]/L [place] Vital Signs Date Time Vital Sign Value Performing Clinician Juanito iniguez 08-31-2022 03:06-0500 Body weight 94.[address] BRITT FOY . [facility] Comment on above: Performed By: #### A FPMAT #### [facility] [address] [place], [place] [address] Dr. Emilee Springer Encounters Encounter Date Encounter Type Care Provider Facility Start: 05-20-2024 End: 05-20-2024 [facility] Start: 05-20-2024 End: 05-20-2024 Subsequent hospital visit by physician Ynes Steele CNP Work Phone: [facility] Laboratory Comment on above: Elevated liver enzym es; Mixed hyperlipidemia Start: 03-06-2024 End: 03-08-2024 ambulatory YNES MISTRY [facility] Start: 02-16-2024 End: 02-16-2024 ambulatory [facility]NES [facility] Start: 10-18-2023 End: 10-18-2023 ambulatory [facility]NES [facility] Start: 10-18-2023 Encounter for genera l adult medical examination without abnormal findings [facility] Start: 08-06-2023 End: 08-06-2023 ambulatory Facility:[facility] Start: 07-11-2023 End: 07-11-2023 ambulatory RAJENDRA RUFFIN [facility] Start: 07-05-2023 End: 07-05-2023 ambulatory DORA CUMMINS Not Available Start: 03-20-2023 End: 03-20-2023 ambulatory ISRAEL [facility] Start: 12-17-2022 End: 12-17-[address] BRITT FOY . Facility:[facility] Start: 12-12-2022 End: 12-12-[address] KYLIE SEYMORU . Facility:[facility] Start: 12-10-2022 End: 12-10-[address] BRITT FOY . Facility:[facility] Start: 10-31-2022 End: 11-01-[address] BRITT FOY . Facility:[facility] Start: 10-22-2022 End: 10-23-2022 ambulatory DORA CUMMINS . Facility:[facility] Start: 10-15-2022 End: 10-16-[address] BRITT FOY . Facility:[facility] Start: 09-12-2022 End: 09-12-[address] BRITT FOY . Facility:[facility] Start: 09-10-2022 End: 09-11-[address] BRITT FOY . Facility:[facility] Start: 08-29-2022 End: 08-30-[address] BRITT FOY . Facility:[facility] Start: 08-01-2022 End: 08-01-2022 Subsequent hospital visit by physician [facility] Start: 07-04-2022 End: 07-05-[address] BRITT FOY . Facility:[facility] Start: 06-23-2022 End: 06-24-[address] YELENA CARLOS Facility:[facility] Start: 06-09-2022 End: 06-10-[address] BRITT FOY . Facility:[facility] Start: 06-02-2022 End: 06-02-2022 Subsequent hospital visit by physician Ynes Steele CNP [facility] Phone[facility] Start: 04-18-2022 End: 04-18-[address] BRITT FOY . Facility:[facility] Start: 09-23-2021 End: 09-27-2021 ambulatory JO ANN LIVE [facility] Start: 09-08-2021 End: 09-12-2021 ambulatory [facility] Start: 08-25-2021 End: 08-29-2021 ambulatory [facility] Start: 08-19-2021 End: 08-23-2021 ambulatory [facility] Start: 08-10-2021 End: 08-10-2021 Subsequent hospital visit by physician Ynes Steele CNP [facility]: [facility] Comment on above: Amenorrhea Start: 11-25-2020 End: 11-27-2020 Subsequent hospital visit by physician Mth Ultrasound [facility] Comment on above: Frequent UTI Start: 05-04-2020 End: 05-04-2020 Subsequent hospital visit by physician Ynes BER[facility] Laboratory Comment on above: Encounter for screen ing for HIV; Other fatigue; Wellness examination Start: 03-03-2020 End: 03-03-2020 Subsequent hospital visit by physician Jannette [facility] Laboratory Comment on above: Screening for cervic al cancer; Encounter for annual routine gynecological examination Procedures Date Procedure Procedure Detail Performing Clinician Start: 05-20-2024 Lipid panel Ynes hess 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 - [employer] Work Phone: Start: 05-20-2024 Comprehensive metabo lic panel Ynes Mistry 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 - [employer] Work Phone: Start: 08-01-2022 Antibody rubella Fran Barroso 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 - [employer] Work Phone: Start: 06-02-2022 Gonadotropin chorion ic quantitative Britt Bill Foy MD Work Phone: Start: 08-10-2021 Gonadotropin chorion ic quantitative Jo Ann Live 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 - CNM Work Phone: Start: 11-25-2020 Us retroperitoneal r eal time w/image complete Lorena Ricks 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 - [employer] Work Phone: Start: 05-04-2020 Antibody hiv-1&hiv-2 single result Ynes Mistry Work Phone: Start: 05-04-2020 Assay of thyroid sti mulating hormone tsh Ynes Mistry Work Phone: Start: 05-04-2020 Basic metabolic pane l calcium total Ynes Mistry Work Phone: Start: 05-04-2020 Blood count complete automated Ynes Mistry Work Phone: Start: 03-03-2020 Microscopic observat ion [Identifier] in Cervix by Cyto stain Ynes Mistry 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 - [employer] Work Phone: Plan of Treatment Date Care Activity Detail Author Start: 05-20-2025 [facility] Start: 10-16-2024 End: 10-16-2024 Patient encounter procedure 10/16/2024 1:40 PM EDT Office Visit [facility] [address] [place] [address] [address] [place] [address] Ynes Mistry, 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 - [employer] [address] [place] [address] Wellness [facility] Comment on above: Wellness Start: 08-03-2024 Depression Screen Depression Screen [facility] Start: 06-04-2024 End: 06-04-2024 Patient encounter procedure 06/04/2024 11:45 AM EST Office Visit [facility] [address] [place] [address] [place] [address] Jose Cruz Raza MD [address] [place] [address] wt management [facility] Comment on above: wt management Start: 05-22-2024 End: 05-22-2024 Patient encounter procedure 05/22/2024 11:00 AM EDT Office Visit [facility] [address] [place] [address] [address] [place] [address] Ynes Mistry, 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 - [employer] [address] [place] [address] LFT + HLD f/u(RS 10/17/23 appt) [facility] Comment on above: LFT + HLD f/u(RS 09/22 01/14 appt) Start: 03-24-2024 COVID-19 Vaccine ( season) COVID-19 Vaccine ( season) [facility] Start: 02-22-2024 Influenza vaccination Flu vaccine (# 1) [facility] Start: 03-03-2023 Screening for malign ant neoplasm of cervix [facility] Start: 11-09-2022 Depression Screen Depression Screen [facility] Start: 07-11-2022 End: 07-11-2022 Patient encounter procedure 07/11/2022 Office Visit Primary Care Ynes Mistry, 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 - [employer] [address] [place] [address] [facility] Start: 05-19-2022 End: 05-19-2022 Patient encounter procedure 05/19/2022 Office Visit Obstetrics and Gynecology Jo Ann Live, 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 - CNM [address] [place] [address] [facility] OBSTETRICS & GYNECOLOGY [facility] Start: 03-18-2022 End: 03-18-2022 Patient encounter procedure 03/18/2022 Office Visit Family Medicine Ynes iMstry, 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 - [employer] [address] [place] [address] [facility] FAMILY MEDICINE [facility] Start: 03-12-2022 Hepatitis C screening Hepatitis C sc [facility] Comment on above: Postponed from 09/09 (Patient Refused) Start: 02-21-2022 Influenza vaccination Flu vaccine (# 1) [facility] Start: 11-19-2021 Screening for Chlamy carlton trachomatis [facility] Start: 09-24-2021 Influenza vaccination Flu vacc ine (Season Ended) [facility] Work Phone: Comment on above: Postponed from 03/24 (Patient Refused) Start: 08-17-2021 Depression Monitoring Depression [facility] Start: 06-30-2021 COVID-19 Vaccine (3 - Booster for Pfizer series) COVID-19 Vaccine (3 - Booster for Pfizer series) [facility] Start: 06-19-2021 DTaP/Tdap/Td vaccine (7 - Td or Tdap) DTaP/Tdap/Td vaccine (7 - Td or Tdap) [facility] Start: 06-19-2021 DTaP/Tdap/Td vaccine (7 - Td) DTaP/Tdap/Td vaccine (7 - Td) [place] Start: 03-24-2021 Influenza vaccination Flu vaccine (# 1) [facility] Start: 03-03-2021 Screening for Chlamy carlton trachomatis Chlamydia screen [place], [place] Start: 02-23-2021 COVID-19 Vaccine (3 - Booster for Pfizer series) COVID-19 Vaccine (3 - Booster for Pfizer series) [facility] Start: 02-09-2021 End: 02-09-2021 Patient encounter procedure 02/09/2021 Office Visit Family Medicine Ynes Mistry, 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 - [employer] [address] [place] [address] [phone] [facility] Start: 11-30-2020 End: 11-30-2020 Patient encounter procedure 11/30/2020 Office Visit Urology Chris Moe MD [address], [address] [place] [address] [phone] [facility] Start: 05-28-2020 End: 05-28-2020 Telemedicine 05/28/2020 Telemedicine Family Medicine Ynes Mistry, 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 - [employer] [address] [place] [address] [phone] [facility] Start: 03-24-2020 Influenza vaccination Flu vaccine (# 1) [place] Start: 02-22-2020 Screening for Chlamy carlton trachomatis Chlamydia screen [place], [place] Start: 2019 Screening for malign ant neoplasm of cervix Cervical cancer screen [place], [place] Start: 2016 Hepatitis C screening Hepatitis C sc bernadette [facility] Start: 2014 COVID-19 Vaccine (1) COVID-19 Vaccin e (1) [facility] Work Phone: Start: 2013 HIV screening HIV screen [place], [place] Start: 1998 Hepatitis C screening Hepatitis C sc reesigrid [facility] Work Phone: End: 03-03-2020 C.trachomatis N.gonorrhoeae DNA, Thin Prep C.trachomatis N.gonorrhoeae DNA, Thin Prep Microbiology Routine Encounter for annual routine gynecological examination 1 Occurrences starting 03/03/2020 until 03/03/2020 [place] Comment on above: 1 Occurrences starti ng 03/03/2020 until 03/03/2020 C.trachomatis N.gonorrhoeae DNA, Thin Prep C.trachomatis N.gonorrhoeae DNA, Thin Prep Microbiology Routine Encounter for annual routine gynecological examination 03/03/2020 5:08 PM EDT [place] End: 03-03-2020 Cytopathology procedure, preparation of smear, genital source [facility] Routine Screening for cervical cancer 1 Occurrences starting 03/03/2020 until 03/03/2020 [place] Comment on above: 1 Occurrences starti ng 03/03/2020 until 03/03/2020 Immunizations Immunization Date Immunization Notes Care Provider Lora canela 12-29-2020 COVID-19, Pfizer Pur ple top, DILUTE for use, 12+ yrs, 30mcg/0.3mL dose Ynes Mistry 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 - [employer] Work Phone: [facility] Work Phone: 12-07-2020 COVID-19, Pfizer Pur ple top, DILUTE for use, 12+ yrs, 30mcg/0.3mL dose Ynes Mistry 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 - [employer] Work Phone: [facility] 09-20-2017 human papilloma viru s vaccine, quadrivalent [facility], [place] 05-01-2017 human papilloma viru s vaccine, quadrivalent [facility] 02-24-2017 human papilloma viru s vaccine, quadrivalent [facility] 03-11-2016 meningococcal polysaccharide (groups A, C, Y and W-135) diphtheria toxoid conjugate vaccine (MCV4P) [place], [place] 2014 meningococcal ACWY vaccine, unspecified formulation [facility] 08-19-2011 Hepatitis A Ped/Adol (Vaqta) [facility] 08-19-2011 hepatitis A vaccine, pediatric/adolescent dosage, 2 dose schedule Ynes Mistry 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 - [employer] Work Phone: [facility] Work Phone: 06-19-2011 tetanus toxoid, redu saundra diphtheria toxoid, and acellular pertussis vaccine, adsorbed [facility] 02-09-2011 Hepatitis A Ped/Adol (Vaqta) [facility] 02-09-2011 hepatitis A vaccine, pediatric/adolescent dosage, 2 dose schedule Ynes Fede 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 - [employer] Work Phone: [facility] Work Phone: 02-09-2011 varicella virus vaccine [facility] 01-12-2011 meningococcal polysaccharide (groups A, C, Y and W-135) diphtheria toxoid conjugate vaccine (MCV4P) [facility] 11-20-2003 diphtheria, tetanus toxoids and acellular pertussis vaccine [facility] 11-20-2003 measles, mumps and rubella virus vaccine [facility] 11-20-2003 poliovirus vaccine, inactivated [facility] 03-13-2000 diphtheria, tetanus toxoids and acellular pertussis vaccine [facility] 03-13-2000 haemophilus influenz ae type b vaccine, PRP-T conjugate [facility] 03-13-2000 poliovirus vaccine, inactivated [facility] 12-22-1999 measles, mumps and rubella virus vaccine [facility] 12-22-1999 varicella virus vaccine [facility] 06-09-1999 hepatitis B vaccine, pediatric or pediatric/adolescent dosage [facility] 03-12-1999 diphtheria, tetanus toxoids and acellular pertussis vaccine [facility] 03-12-1999 haemophilus influenz ae type b vaccine, PRP-T conjugate [facility] 01-18-1999 diphtheria, tetanus toxoids and acellular pertussis vaccine [facility] 01-18-1999 haemophilus influenz ae type b vaccine, PRP-T conjugate [facility] 01-18-1999 poliovirus vaccine, inactivated [facility] 1998 haemophilus influenz ae type b vaccine, PRP-T conjugate [facility], [place] 1998 poliovirus vaccine, inactivated [facility], [place] 1998 diphtheria, tetanus toxoids and acellular pertussis vaccine [facility] 1998 hepatitis B vaccine, pediatric or pediatric/adolescent dosage [facility], [place] 1998 hepatitis B vaccine, pediatric or pediatric/adolescent dosage [facility] Payers Date Payer Category Payer Unknown [facility] [id number] 2022-Present [address] [place] [address] [place] [address] Indemnity [id number] 1998 Unknown [id number] [id number]0 1998 Unknown [id number] 2.16.840.1.504291.3.579.2.900 1998 Unknown [id number] 2.16.840.1.879970.3.579.2.900 1998 Unknown [id number] 2.16.840.1.618990.3.579.2.900 1998 Unknown [id number] 2.16.840.1.705002.3.579.2.593 1998 Unknown [id number] 2.16.840.1.721408.3.579.2.593 1998 Unknown [id number] 2.16.840.1.658529.3.579.2.593 1998 Unknown [id number] 2.16.840.1.937971.3.579.2.593 1998 Unknown [id number] 2.16.840.1.491679.3.579.2.593 1998 Unknown [id number] 2.16.840.1.106366.3.579.2.593 1998 Unknown [id number] 2.16.840.1.777927.3.579.2.593 1998 Unknown [id number] 2.16.840.1.979465.3.579.2.593 1998 Unknown [id number] 2.16.840.1.908020.3.579.2.593 1998 Unknown [id number] 2.16.840.1.324961.3.579.2.593 1998 Unknown [id number] 2.16.840.1.043047.3.579.2.593 1998 Unknown [id number] 2.16.840.1.688566.3.579.2.593 1998 Unknown [id number] 2.16.840.1.296118.3.579.2.593 1998 Unknown [id number] 2.16.840.1.751144.3.579.2.593 1998 Unknown [id number] 2.16.840.1.151817.3.579.2.1259 1998 Unknown [id number] 2.16.840.1.719218.3.579.2.173 1998 Unknown [id number] 2.16.840.1.552103.3.579.2.173 1998 Unknown [id number] 2.16.840.1.801280.3.579.2.173 1998 Unknown [id number] 2.16.840.1.072603.3.579.2.173 1959 Self-pay 1959 Unknown [id number] [id number] [id number] 1959 Unknown [id number] 1959 Unknown [id number] Unknown [id number] 2.16.840.1.270326.3.579.2.593 Social History Date Type Detail Facility Start: 03-03-2020 End: 08-03-2023 Tobacco smoking status NHIS Never smoker [place] Start: 03-03-2020 End: 08-03-2023 Tobacco use and exposure Never used [place] Start: 03-03-2020 End: 05-12-2021 Alcohol intake Current drinker of alcohol (finding) [place] Start: 06-19-2017 Alcohol Comment [place], [place] Start: 1998 Sex Assigned At Not on file [place] Start: 05-01-2020 End: 03-08-2022 History SDOH Financial 5 [place] Start: 05-01-2020 End: 03-08-2022 History SDOH Food Worry 1 [place], [place] Start: 05-01-2020 History SDOH Transpo rt Med 2 [place] Exposure to SARS-CoV -2 (event) Not sure [facility] Start: 05-01-2024 Alcoholic beverage intake [facility] (finding[facility] [facility] Start: 07-13-2023 End: 05-01-2024 History of Social function Bon [facility] Start: 07-13-2023 End: 05-01-2024 Tobacco use panel [facility] How hard is it for y ou to pay for the very basics like food, housing, medical care, and heating Not hard at all [facility] [employer] (I/We) worried kelseyth er (my/our) food would run out before (I/we) got money to buy more. Never true [facility] [facility] Start: 1998 Sex assigned at Female B on [facility] Start: 05-20-2024 Gender identity Identifies as female gender (finding) [facility] Clinical Notes 03-20-2023 to 08-06-2023 Note Date & Type Note Facility 08-06-2023 Note HNO ID: [id number] Author: LANG CARREON APRN.[employer] Service: ? Author Type: Nurse Practitioner Type: Progress Notes Filed: 08/06/2023 10:44 Note Text: Telemedicine Visit - Distance Health Virtual Visit Note I have communicated my name and active licensure. The patient's identity and physical location were verified at the time of this visit. Either the patient or their legal development representative has been informed of the risks and benefits of -- and alternatives to -- treatment through a remote evaluation and consents to proceed with the evaluation remotely. Patient seen on virtual platforms, [employer]. Location of patient: [place] History of Presenting Illness: Vinny Downey 22 year old that complains of possible sinus infection. Positive for: chest tightness, chest congestion, ear pressure, nasal congestion, sinus pressure, pnd, productive cough, fatigue, resolved fever. Daughter had RSV Patient had stomach flu, probable RSV, and now has led to worsening symptoms Negative for: chills, myalgias/arthralgias, headache, otalgia, sneezing, sore throat,change in taste/smell, eye drainage/redness, wheezing, pleuritic chest pain, cardiac chest pain, sob/dyspnea, abdominal pain, nausea, vomiting, diarrhea, and rashes. It is > 2 weeks of illness and 9 days with symptoms mentioned above OTC meds/remedies that patient has tried: flonase, saline nasal, decongestant, and oral antihistamine . Tobacco use: No Took Covid test: negative Video Exam (Examination performed via Video enabled technology) General appearance: Alert, oriented, pleasant, in NAD :Yes Ill appearing :No Lethargic appearing :No Eyes: Sclera clear :Yes Conjunctiva without erythema :Yes Ears: Tragus / outer ear tenderness by self palpation :No Oropharynx: + pnd. No erythema or edema Frontal sinus tenderness by self palpation;Yes Maxillary sinus tenderness by self palpation :Yes Ethmoid sinus tenderness by self palpation: Yes Tender cervical adenopathy by self palpation :Yes Respiratory distress :No Coughing noted :Yes bronchial and productive Audible wheezing noted :No ASSESSMENT/PLAN Bacterial sinusitis (primary encounter diagnosis) Bronchitis - Supportive measures: rest, warm fluids, saline nasal irrigation, humidification, hot showers, warm facial packs/compresses to help open respiratory and sinus passages - Sleep with head elevated due to aoin-difgo-hsnu increases cough - Continue Flonase - Flonase: 2 sprays in each nostril at bedtime up to 14 days - Nasal saline solution is an over the counter product used to restore moisture to the nose, clean and decongest the passages. Use 2 sprays in each nostril 3-4 times a day; preferrably in the AM and at bedtime and 1-2 times during the day. Then blow out the mucous. You may purchase any brand of your preference.or Neti Pot daily - Mucinex 1200mg every 12 hours as needed for 7 days - Wash your hands frequently to prevent spreading infection. - Warm salty gargles: 1 liter of water 2 table spoons of salt every 4 hours while awake - Drink plenty of water/fluids (unless your doctor has told you otherwise) - Avoid tobacco smoke and other environmental irritants - If you were prescribed an antibiotic finish it all even if you start to feel better - The following approved medication requests have been transmitted electronically. Requested Prescriptions Signed Prescriptions Disp Refills amoxicillin-clavulanate potassium (AUGMENTIN) 875-125 mg per tablet 10 tablet 0 Sig: Take 1 tablet by mouth two times a day for 5 days. guaiFENesin (MUCINEX) 1,200 mg Ta12 14 tablet 0 Sig: Take 1 tablet by mouth two times a day for 7 days. predniSONE (DELTASONE) 20 mg tablet 10 tablet 0 Sig: Take 2 tablets by mouth once daily for 5 days. benzonatate (TESSALON PERLE) 100 mg capsule 60 capsule 0 Sig: Take 1-2 capsules every 8 hours as needed. - Follow up with PCP or Urgent Care if symptoms persist, worsen, or any other concerns arises despite today's treatment and recommendation in 1 week - Red flags discussed for need for in person care - All questions answered Lang Carreon APRN.CNP [facility] 07-11-2023 Note [facility] Consult Note Reason for visit: bradycardia HPI: Vinny Downey is a 22 y.o. year old with past medical history of anxiety. She is about 2 months s/p csecetion with her first , she is currently . She has been seen by OB for visit and was found to be bradycardic with heart rate in the 50s and EKG which showed potential right ventricular conduction delay. Her was complicated with anemia and she began feeling palpitations. So an EKG was performed which showed sinus bradycardia with possible right ventricular conduction delay in V1 and V2. She does not believe she was bradycardic prior to her pregnancyOtherwise she has been doing well with no complaints of chest pain, shortness of breath, SPENCER. She does feel palpitations intermittently not necessarily associated with any other symptoms. No previous cardiac work-up. Mets >7 She was seen by Israel CHRISTOPHER and 30d event monitor ordered. This revealed evidence of SVT. Lately she has felt better ECG 03/13/2023 shows sinus bradycardia with possible right ventricular conduction delay PMH: No past medical history on file. PSH: Past Surgical History: Procedure Laterality Date APPENDECTOMY SECTION, CLASSIC DILATION AND CURETTAGE OF UTERUS SH: Social Determinants of Health Tobacco Use: Low Risk (03/20/2023) Patient History Smoking Tobacco Use: Never Smokeless Tobacco Use: Never Passive Exposure: Not on file Alcohol Use: Not on file Financial Resource Strain: Not on file Food Insecurity: Not on file Transportation Needs: Not on file Physical Activity: Not on file Stress: Not on file Social Connections: Not on file Intimate Partner Violence: Not on file Depression: Not on file Housing Stability: Not on file Allergies: No Known Allergies Weight: 95.7kg Visit Vitals BP 108/76 (BP Location: Left arm, Patient Position: Sitting) Pulse 73 Ht 1.676 m (5' 6 ) Wt 95.7 kg (211 lb) SpO2 96% BMI 34.06 kg/m??? Smoking Status Never BSA 2.11 m??? Meds: Current Outpatient Medications on File Prior to Visit Medication Sig Dispense Refill norethindrone (Micronor) 0.35 mg tablet Take 1 tablet by mouth in the morning. Pro Fe 180 mg iron capsule Take by mouth in the morning. sertraline (Zoloft) 50 mg tablet 50 mg in the morning. No current facility-administered medications on file prior to visit. ROS: Review of Systems Cardiovascular: Positive for palpitations (less often). All other systems reviewed and are negative. Physical Exam: Constitutional General Appearance: well-nourished, well-developed, appears stated age Level of Distress: comfortable Psychiatric Mental Status: alert, normal affect Orientation: oriented to time, place, and person Insight: good judgement Eyes Lids and Conjunctivae: non-injected, no xanthelasma ENMT Ears: no lesions on external ear Nose: no lesions on external nose Oropharynx: no cyanosis, no pallor Neck Neck: supple, trachea midline Carotid Arteries: bilateral normal upstroke, no bruits Jugular Veins: normal jugular venous pressure Thyroid: not enlarged Lungs Respiratory Effort: unlabored Chest Exam: normal curvature, no thoracic deformity Auscultation: clear, no wheezing, no rales, no rhonchi Cardiovascular Rate And Rhythm: regular Heart Sounds: normal S1, normal s2, no gallop Systolic Murmur: not heard Diastolic Murmur: not heard Extremities: no cyanosis, no edema, no peripheral signs of emboli Peripheral Pulses Radial Pulse: normal Abdomen Inspection and Palpation: soft, non distended, no bruit, non tender Musculoskeletal Inspection: no joint swelling Neurologic Gait: normal gait Skin Inspection and Palpation: warm and dry Nails: no clubbing Labs: Labs 03/17/2023 hemoglobin 10.8, hematocrit 34.8, TSH 1.4 EKG: No results found for this or any previous visit (from the past 4464 hour(s)). Echo: Stress test: Coronary angiogram: @CATH@ Diagnostic Imaging: No images are attached to the encounter. Assessment and Plan: Palpitations/SVT - 30-day event monitor reveals SVT but given the episodes are improving, we discussed the natural history of SVT and given they are not fatal, willing to approach conservatively. If she has recurrence, then will plan on EPS and ablation. Anxiety - takes sertraline 50 mg daily Iron deficiency anemia due to chronic blood loss -developed anemia s/p -hgb 10.8 per recent labs Rajendra Ruffin MD Cardiac Electrophysiology [facility] 07-11-2023 Note Patient here for fol low up event monitor. Echo was not performed that was ordered at last apt in Feb 2023 by Israel Champion CNP. Does not notice palpitations as often. Denies chest pain, SOB, and lightheadedness. Review of Systems Cardiovascular: Positive for palpitations (less often). All other systems reviewed and are negative. [facility] 03-30-2023 Note -developed anemia po stpartum s/p -hgb 10.8 per recent labs [facility] 03-30-2023 Note - could be related t o being , anemia -monitor and echo to rule out cardiac concern [facility] 03-30-2023 Note - [facility] - 30-day event monit or - we will hold off on starting medication until follow-up [facility] 03-20-2023 Note New patient here to establish care. Ref from Dr. Foy for bradycardia. She is 8 weeks . Had ECG last week. Symptoms started after baby was born. She feels palpitations. Did lose a lot of blood with , requiring transfusion. Denies chest pain and SOB. Review of Systems Cardiovascular: Positive for palpitations. Neurological: Positive for headaches. All other systems reviewed and are negative. [facility] 03-20-2023 Note [facility] Electrophys[facility] Consult Note Reason for visit: new pt, 2 months s/p now developed palpitations / bradycardia HPI: Vinny Downey is a 22 y.o. year old with past medical history of anxiety. She is about 2 months s/p csecetion with her first , she is currently . She has been seen by OB for visit and was found to be bradycardic with heart rate in the 50s and EKG which showed potential right ventricular conduction delay Her was complicated with anemia and she began feeling palpitations. So an EKG was performed which showed sinus bradycardia with possible right ventricular conduction delay in V1 and V2. She does not believe she was bradycardic prior to her Otherwise she has been doing well with no complaints of chest pain, shortness of breath, SPENCER. She does feel palpitations intermittently not necessarily associated with any other symptoms. No previous cardiac work-up. Mets >7 ECG 03/13/2023 shows sinus bradycardia with possible right ventricular conduction delay PMH: No past medical history on file. PSH: Past Surgical History: Procedure Laterality Date APPENDECTOMY SECTION, CLASSIC DILATION AND CURETTAGE OF UTERUS SH: Social Determinants of Health Tobacco Use: Low Risk (03/20/2023) Patient History Smoking Tobacco Use: Never Smokeless Tobacco Use: Never Passive Exposure: Not on file Alcohol Use: Not on file Financial Resource Strain: Not on file Food Insecurity: Not on file Transportation Needs: Not on file Physical Activity: Not on file Stress: Not on file Social Connections: Not on file Intimate Partner Violence: Not on file Depression: Not on file Housing Stability: Not on file Allergies: No Known Allergies Weight: 93kg Visit Vitals BP 110/73 (BP Location: Left arm, Patient Position: Sitting) Pulse 64 Ht 1.676 m (5' 6 ) Wt 93 kg (205 lb) SpO2 98% BMI 33.09 kg/m??? Smoking Status Never BSA 2.08 m??? Meds: Current Outpatient Medications on File Prior to Visit Medication Sig Dispense Refill Pro Fe 180 mg iron capsule Take by mouth in the morning. sertraline (Zoloft) 50 mg tablet 50 mg in the morning. No current facility-administered medications on file prior to visit. ROS: Cardio Basic Cardiovascular Symptoms: no lightheadedness, no leg edema, no syncope, no orthopnea, no PND, no claudication, Constitutional Constitutional: no fever, no night sweats, no significant weight gain, no significant weight loss, no exercise intolerance Eyes Eyes: no dry eyes, no irritation, no vision change ENMT Ears: no difficulty hearing, no ear pain Nose: no frequent nosebleeds, Mouth/Throat: no sore throat, no bleeding gums, no snoring, no dry mouth, no mouth ulcers, no oral abnormalities, no teeth problems Respiratory Respiratory: no cough, no wheezing, no coughing up blood, no sleep apnea Musculoskeletal Musculoskeletal: no muscle aches, no muscle weakness, joint pain+, no back pain, no swelling in the extremities Integumentary Skin no rash, no ulcer, no varicosities, no discoloration, no pruritus Neurologic Neurologic: no loss of consciousness, no weakness, no numbness, no seizures, no dizziness, no headaches Psychiatric Psych: no depression, feeling safe in relationship, no alcohol abuse, Hematologic/Lymphatic Hematologic/Lymphatic no swollen glands, no bruising Physical Exam: Constitutional General Appearance: well-nourished, well-developed, appears stated age Level of Distress: comfortable Psychiatric Mental Status: alert, normal affect Orientation: oriented to time, place, and person Insight: good judgement Eyes Lids and Conjunctivae: non-injected, no xanthelasma ENMT Ears: no lesions on external ear Nose: no lesions on external nose Oropharynx: no cyanosis, no pallor Neck Neck: supple, trachea midline Carotid Arteries: bilateral normal upstroke, no bruits Jugular Veins: normal jugular venous pressure Thyroid: not enlarged Lungs Respiratory Effort: unlabored Chest Exam: normal curvature, no thoracic deformity Auscultation: clear, no wheezing, no rales, no rhonchi Cardiovascular Rate And Rhythm: regular Heart Sounds: normal S1, normal s2, no gallop Systolic Murmur: not heard Diastolic Murmur: not heard Extremities: no cyanosis, no edema, no peripheral signs of emboli Peripheral Pulses Radial Pulse: normal Abdomen Inspection and Palpation: soft, non distended, no bruit, non tender Musculoskeletal Inspection: no joint swelling Neurologic Gait: normal gait Skin Inspection and Palpation: warm and dry Nails: no clubbing Labs: Labs 03/17/2023 hemoglobin 10.8, hematocrit 34.8, TSH 1.4 EKG: No results found for this or any previous visit (from the past 4464 hour(s)). Echo: Stress test: Coronary angiogram: @CATH@ Diagnostic Imaging: No images are attached to (more content not included)... [facility] Evaluation note Diagnosis Frequent UTI Urinary tract infection, site not specified documented in this encounter [employer] Phone: evaluation note* Diagnosis Amenorrhea Absence of menstruation documented in this encounter [employer] Phone: evaluation note* Diagnosis Elevated liver enzymes Nonspecific elevation of levels of transaminase or lactic acid dehydrogenase (LDH) Mixed hyperlipidemia documented in this encounter [facility] Diagnosis Screening for cervical cancer Screening for malignant neoplasm of the cervix Encounter for annual routine gynecological examination Diagnosis Encounter for screening for HIV Other fatigue Wellness examination Advance Directives No Advanced Directives Records FoundDocuments on File Type Date Recorded Patient Automation Tender Expl anation Advance Directives and Living Will Power of Commercial Sales Manager Documents on File Type Date Recorded Patient Automation Tender Expl anation ACP-Advance Directive ACP-Power of Commercial Sales Manager Documents on File Type Date Recorded Patient Automation Tender Expl anation ACP-Advance Directive ACP-Power of Commercial Sales Manager Summary Purpose Family History No Family History Records FoundNo Family History Records FoundNo Family History Records FoundNo Family History Records FoundNo Family History Records FoundNo Family History Records FoundNo Family History Records Found Reason for Referral Status Reason Specialty Diagnoses / Procedures Referre d By Contact Referred To Contact Closed Radiology Diagnoses Frequent UTI Procedures US RENAL COMPLETE Lorena Ricks, SED 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 - [employer] [address] [place] [address] Additional Source Comments INFORMATION SOURCE (unrecogn ized section and content) DATE CREATED AUTHOR 10/14/2020 [facility] DATE CREATED AUTHOR AUTHOR'S ORGANIZ ATION 09/26/2021 [facility] DATE CREATED AUTHOR AUTHOR'S ORGANIZ ATION 12/30/2022 [facility] DATE CREATED AUTHOR AUTHOR'S ORGANIZ ATION 07/07/2023 [facility] DATE CREATED AUTHOR AUTHOR'S ORGANIZ ATION 08/03/2023 [facility] DATE CREATED AUTHOR AUTHOR'S ORGANIZ ATION 08/07/2023 [facility] DATE CREATED AUTHOR AUTHOR'S ORGANIZ ATION 05/22/2024 [facility] Reason for Visit (unrecogniz ed section and content) Status Reason Specialty Diagnoses / Procedures Referre d By Contact Referred To Contact Closed Radiology Diagnoses Frequent UTI Procedures US RENAL COMPLETE Lorena Ricks, SED 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 - [employer] [address] [place] [address] Care Teams (unrecognized sec tion and content) Economist Research Assistant Relationship Specialty Start Date End Date Ynes Mistry, SED 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 - [employer] [address] [place] [address] PCP - General Family Nurse Practitioner 05/04/20 Economist Research Assistant Relationship Specialty Start Date End Date Ynes Mistry, SED 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 - [employer] SUPER[employer] [address] [place] [address] PCP - General Family Nurse Practitioner 05/04/20 Economist Research Assistant Relationship Specialty Start Date End Date Ynes Mistry, SED 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 - [employer] SUPERVISOR [address] [place], [place] [id number] PCP - General Family Nurse Practitioner 08/02/22 FOR RECORDS PERTAINING TO PATIENTS WHO ARE OR HAVE BEEN ENROLLED IN A CHEMICAL DEPENDENCY/SUBSTANCEABUSE PROGRAM, SOME INFORMATION MAY BE OMITTED. This clinical summary was aggregated from multiple sources. Caution should be exercised in using it in the provision of clinical care. This summary normalizes information from multiple sources, and as a consequence, information in this document may materially change the coding, format and clinical context of patient data. In addition, data may be omitted in some cases. CLINICAL DECISIONS SHOULD BE BASED ON THE PRIMARY CLINICAL RECORDS. [facility] [employer] [facility]. provides no warranty or guarantee of the accuracy or completeness of information in this document.
[2024-07-23 12:07] LABS: Age Gdln ACOG Testing Note (.); IGP, rfx Aptima HPV ASCU Note (.)
== END 2024-07-15 21:01 | disposition home or self-care (01) ==
LOC: LAB 21:00
PROVIDERS: Visit Provider Obstetrics & Gynecology
DX: Z01.419 Encounter for gynecological examination (general) (routine) without abnormal findings (principal)
CPT/HCPCS: 88175

== ENCOUNTER 2025-04-05 09:54 | Outpatient (OUT) | payer OTHER, SELFPAY ==
--- NOTE | 2025-04-05 09:57 | US_ITS ---
[address] [address] Patient Name: VINNY HERRERA MRN: [id number] date: 2000 Sex: F Assigned Patient Location: US Current Patient Location: LAB Accession/Order Number: [id number] Exam Date: 04/05/2025 10:00 Report Date: 04/05/2025 12:08 At the request of: DORA CUMMINS Procedure: US OB growth Limited obstetrical ultrasound HISTORY: Gestational diabetes. Assessment for growth. Fetus in breech presentation with longitudinal lie. Placenta anterior location with normal appearance. heart rate 1 36 bpm. somatic motion identified. The gestational age by ultrasound is 29 weeks 2 days. Estimated delivery 06/19/2025. Estimated weight 1335 g with weight percentile 51.2%. US/US OB growth IMPRESSION: Single live intrauterine gestation 29 weeks 2 days. Impression dictated by: Daryn Peraza M.D. 04/05/2025 12:08 PM Dictation Location: [employer] Electronically authenticated by: [id number] Date: 04/05/2025 12:08
--- OUTSIDE RECORDS SUMMARY | 2025-04-05 09:57 | XMS_ITS | CCD ---
Author Organization [facility] Care Team Providers Care Electron Beam Welder Name Role Phone Jannette Peña I Primary Care Provider [phone] Ynes Rodriguez Primary Care Provider Fede LUX Ynes ANDRES Primary Care Provide r LAW, MUKUL R Admitting Unavailable LAW, MUKUL R Primary Care Unavailable LAW, MUKUL R Admitting Unavailable LAW, MUKUL R Primary Care Unavailable LAW, MUKUL R Admitting Unavailable LAW, MUKUL R Primary Care Unavailable BERTO LIVE Admitting Unavailabl e LAW, MUKUL R Primary Care Unavailable Fede RECYCLING MANAGER - FARMWORKER ANIMAL, Ynes Conner Primary Care Provide r Unavailable Primary Care Provider Unavailabl e LAW ., DR DE LA TORRE Attending Unavailable MISC, DR YAÑEZ Primary Care Unavailable LINCOLNTON, DR YELENA Henao Consulting Unavailable LAW ., DR DE LA TORRE Admitting Unavailable LAW ., DR DE LA TORRE Consulting Unavailable LAW ., DR DE LA TORRE Consulting Unavailable MISC, DR YAÑEZ Primary Care Unavailable LAW ., DR DE LA TORRE Admitting Unavailable LAW ., DR DE LA TORRE Attending Unavailable LAW ., DR DE LA TORRE Consulting Unavailable LAW ., DR DE LA TORRE Attending Unavailable LAW ., DR DE LA TORRE Admitting Unavailable MISC, DR YAÑEZ Primary Care Unavailable LAW ., DR DE LA TORRE Consulting Unavailable LAW ., DR DE LA TORRE Attending Unavailable MISC, DR YAÑEZ Primary Care Unavailable LAW ., DR DE LA TORRE Admitting Unavailable LAW ., DR DE LA TORRE Consulting Unavailable MISC, DR YAÑEZ Primary Care Unavailable LAW ., DR DE LA TORRE Admitting Unavailable LAW ., DR DE LA TORRE Attending Unavailable ZIEBER, DR LUIS ALFREDO Forbes Consulting Unavailable LAW ., DR DE LA TORRE Attending Unavailable LAW ., DR DE LA TORRE Admitting Unavailable MISC, DR YAÑEZ Primary Care Unavailable KARASIK ., DR ESPINAL Consulting Unavailabl e KARASIK ., DR ESPINAL Attending Unavailabl e KARASIK ., DR ESPINAL Admitting Unavailabl e MISC, DR YAÑEZ Primary Care Unavailable ZIEBER, DR LUIS ALFREDO Forbes Consulting Unavailable LAW ., DR DE LA TORRE Consulting Unavailable LAW ., DR DE LA TORRE Attending Unavailable LAW ., DR DE LA TORRE Admitting Unavailable MISC, DR YAÑEZ Primary Care Unavailable ZIEBER, DR LUIS ALFREDO Forbes Consulting Unavailable MARIA G ., REGINA Consulting Unavailable MARIA G ., REGINA Attending Unavailable MARIA G ., REGINA Admitting Unavailable MISC, DR YAÑEZ Primary Care Unavailable MARIA G ., REGINA Consulting Unavailable MARIA G ., REGINA Attending Unavailable MISC, DR YAÑEZ Primary Care Unavailable MARIA G ., REGINA Admitting Unavailable LAW ., DR DE LA TORRE Consulting Unavailable MISC, DR YAÑEZ Primary Care Unavailable LAW ., DR DE LA TORRE Admitting Unavailable LAW ., DR DE LA TORRE Attending Unavailable LAW ., DR DE LA TORRE Admitting Unavailable LAW ., DR DE LA TORRE Attending Unavailable MISC, DR YAÑEZ Primary Care Unavailable LAW ., DR DE LA TORRE Consulting Unavailable MISC, DR YAÑEZ Primary Care Unavailable LAW ., DR DE LA TORRE Attending Unavailable LAW ., DR DE LA TORRE Admitting Unavailable LAW ., DR DE LA TORRE Admitting Unavailable LAW ., DR DE LA TORRE Consulting Unavailable LAW ., DR DE LA TORRE Attending Unavailable MISC, DR YAÑEZ Primary Care Unavailable LINCOLNTON, DR YELENA Henao Consulting Unavailable LAW ., DR DE LA TORRE Attending Unavailable LAW ., DR DE LA TORRE Admitting Unavailable REQUEST, DR JENSEN LISTED Primary Care Unavaila ble LAW ., DR DE LA TORRE Consulting Unavailable RAJENDRA SHEFFIELD Attending Unavailable ISRAEL CHAMPION Attending Unavailable Ynes Ngo APRN, CNP Primary Care Provide r Unavailable Primary Care Provider UnavailYNES Zheng Primary Care Unavailable YNES RODRIGUEZ Referring Unavailable YNES RODRIGUEZ Primary Care Unavailable MUKUL FOY Referring Unavailable YNES RODRIGUEZ Primary Care Unavailable YNES RODRIGUEZ Referring Unavailable YNES RODRIGUEZ Primary Care Unavailable REGINA BARTON Referring Unavailable YNES RODRIGUEZ Primary Care Unavailable YNES RODRIGUEZ Referring Unavailable MUKUL FOY Attending Unavailable MUKUL FOY Attending Unavailable MUKUL FOY Referring Unavailable MUKUL FOY Attending Unavailable MUKUL FOY Attending Unavailable LAW, MUKUL Attending Unavailable MUKUL FOY Attending Unavailable Medications Current Medications Medication Drug Class(es) Dates Sig (Normalized) Sig (Original) atorvastatin 10 mg oral tablet (1 source) HMG-CoA Reductase Inhibitor Start: 02-20-2024 take 1 tablet by mouth once daily atorvastatin (LIPITOR) 10 MG tablet Take 1 tablet by mouth daily 30 tablet 5 02/20/2024 Active cephalexin 500 mg oral capsule (2 sources) Cephalosporin Antibacterial Start: 04-03-2025 End: 04-10-2025 take 1 capsule by mouth in the morning, then take 1 capsule by mouth in the evening, then take 1 capsule by mouth at bedtime cephalexin (Keflex) 500 MG capsule Indications: UTI symptoms Take 1 capsule (500 mg) by mouth in the morning and 1 capsule (500 mg) in the evening and 1 capsule (500 mg) before bedtime. Do all this for 7 days. 21 capsule 04/03/2025 04/10/2025 Active cetirizine hydrochloride 10 mg oral tablet (8 sources) Histamine-1 Receptor Antagonist Start: 03-12-2021 take [...] / Norethindrone (6 sources) Estrogen Start: 08-27-2018 24 1- 20 MG-MCG(24) TABS Indications: DUB (dysfunctional uterine bleeding) TAKE 1 TABLET DAILY 84 tablet 1 08/27/2018 Active Start: 05-04-2018 take 1 tablet by param th once daily Norethin David-Eth Estrad-FE 1-20 MG-MCG(24) TABS Indications: Irregular menses Take 1 tablet by mouth daily 28 tablet 12 05/04/2018 Active Start: 07-21-2017 take 1 tablet by param th once daily Norethin David-Eth Estrad-FE () 1-20 [...] hydrochloride 500 mg extended release oral tablet (16 sources) Biguanide Star t: 01-22 25 End: 07-24 26 take 2 tablets by mouth every twenty-four hours at mealtime metFORMIN XR (Glucophage-XR) 500 MG 24 hr tablet Indications: Second trimester ([facility]) , 20 weeks gestation of ([facility]) Take 2 tablets (1,000 mg) by mouth in the evening. Take with meals 60 tablet 5 02/11/2025 08/10/2025 Active Start: 11-05-2024 End: 02-11-2025 take 1 tablet by mouth every twenty-four hours in the morning metFORMIN XR (Glucophage-XR) 500 MG 24 hr tablet Take 1,000 mg by mouth in the morning and 1,000 mg in the evening. 11/05/2024 02/11/2025 Discontinued (Reorder) Start: 11-05-2024 End: 05-04-2025 metFORMIN (GLUCOPHAGE-XR) 50 0 MG extended release tablet Indications: BMI 37.0-37.9, adult , Class 2 obesity with body mass index (BMI) of 37.0 to 37.9 in adult, unspecified obesity type, unspecified whether serious comorbidity present TAKE 2 TABLETS BY MOUTH IN THE MORNING AND AT BEDTIME 120 tablet 5 11/05/2024 05/04/2025 Active Start: 04-26-2024 End: 10-23-2024 metFORMIN (GLUCOPHAGE-XR) 50 0 MG extended release tablet Indications: BMI 37.0-37.9, adult , Class 2 obesity with body mass index (BMI) of 37.0 to 37.9 in adult, unspecified obesity type, unspecified whether serious comorbidity present Take 2 tablets by mouth in the morning and at bedtime 360 tablet 1 04/26/2024 10/23/2024 Active metoclopramide 10 mg oral tablet (5 sources) Dopamine-2 Receptor Antagonist Start: 03-12-2025 End: 04-11-2025 metoclopramide (Reglan) 10 MG tablet Indications: Gastroesophageal reflux disease without esophagitis Take 1 tablet (10 mg) by mouth in the morning and 1 tablet (10 mg) at noon and 1 tablet (10 mg) in the evening. Take before meals. Take 1 tablet by mouth 30 minutes prior to meals 3 times daily as needed for nausea. 90 tablet 3 03/12/2025 04/11/2025 Active nitrofurantoin, macrocrystals 50 mg oral capsule (4 sources) Nitrofuran Antibacterial Start: 03-03-2020 take 1 capsule by mouth once daily nitrofurantoin (MACRODANTIN) 50 MG capsule Indications: Recurrent UTI Take 1 capsule by mouth nightly 30 capsule 0 03/03/2020 Active pantoprazole 40 mg delayed release oral tablet (8 sources) Proton Pump Inhibitor Start: 02-26-2025 End: 02-26-2026 take 1 tablet by mouth before mealtime pantoprazole (Protonix) 40 MG EC tablet Indications: 23 weeks gestation of ([facility]) , Elevated blood sugar level , Gastroesophageal reflux disease without esophagitis Take 1 tablet (40 mg) by mouth in the morning. Take before meals. Do not crush, chew, or split. 30 tablet 11 02/26/2025 02/26/2026 Active phentermine hydrochloride 37.5 mg oral tablet (1 source) Sympathomimetic Amine Anorectic Start: 05-01-2024 End: 05-31-2024 take 37-37.9 tablets by mouth once daily [...] 37.5 mg 30 tablet 05/01/2024 05/31/2024 Active polysaccharide iron complex 391 mg oral capsule (3 sources) Start: 04-02-2025 End: 05-02-2025 take 1 capsule by mouth once daily iron polysaccharides (ProFe) 391.3 (180 Fe) MG capsule Indications: Dizziness Take 1 capsule (391.3 mg) by mouth Daily 30 capsule 6 04/02/2025 05/02/2025 Active Probiotic Product (PROBIOTIC ADVANCED PO) (6 sources) Probiotic Produc t (PROBIOTIC ADVANCED PO) Take by mouth Active Probiotic Produc t (PROBIOTIC ADVANCED PO) Take by mouth 0 Active Progesterone (1 source) Progesterone Start: 10-16-2024 Progesterone [address] 200 mg vaginally nightly 10/16/2024 Active Progesterone 200 MG suppository (2 sources) Start: 11-14-2024 End: 12-14-2024 Progesterone 200 MG suppository Indications: History of miscarriage Insert 200 mg into the vagina at bedtime Insert suppository vaginally every night at bedtime until 12 weeks gestation 30 suppository 2 11/14/2024 12/14/2024 Active Start: 10-16-2024 End: 11-14-2024 Progesterone 200 MG supposit ory Indications: History of miscarriage Insert 200 mg into the vagina at bedtime Insert suppository vaginally every night at bedtime until 12 weeks gestation 30 suppository 3 10/16/2024 11/14/2024 Discontinued (Reorder) sertraline 25 mg oral tablet (20 sources) Serotonin Reuptake Inhibitor Start: 11-12-2024 take 1 tablet by mouth once daily sertraline (ZOLOFT) 25 MG tablet Take 1 tablet by mouth daily 30 tablet 5 11/12/2024 Active Start: 10-25-2024 take 1 tablet by param th once daily in the morning sertraline (Zoloft) 50 MG tablet Indications: Anxiety, generalized TAKE 1 TABLET BY MOUTH EVERY DAY IN THE MORNING 30 tablet 3 10/25/2024 Active Start: 06-27-2024 take 1 tablet by param th once daily in the morning sertraline (Zoloft) 50 MG tablet Indications: Anxiety, generalized (CMS/HCC) TAKE 1 TABLET BY MOUTH EVERY DAY IN THE MORNING 30 tablet 3 06/27/2024 Active Start: 10-17-2023 take 1 tablet by param th once [...] mouth nightly 30 tablet 2 05/01/2020 Active Completed/Discontinued Medications Medication Drug Class(es) Dates Sig (Normalized) Sig (Original) norethindrone 0.35 mg oral tablet (2 sources) Start: 03-10-2023 End: 07-15-2024 take 1 tablet by mouth in the morning norethindrone (Micronor) 0.35 MG tablet Indications: General counseling and advice on contraceptive management Take 1 tablet (0.35 mg) by mouth in the morning. 28 tablet 11 03/10/2023 07/15/2024 Discontinued (Therapy completed) omeprazole 20 mg delayed release oral capsule (8 sources) Proton Pump Inhibitor Start: 01-15-2025 End: 02-26-2025 take 1 capsule by mouth before mealtime omeprazole (PriLOSEC) [address] capsule Indications: Gastroesophageal Reflux Disease , Heartburn Take 1 capsule (20 mg) by mouth in the morning. Take before meals. Do not crush or chew. 30 capsule 3 01/15/2025 02/26/2025 Discontinued (Formulary change) Problems Active Problems Problem Classification Problem Date Documented Date Episodic/Chronic Administrative/socia l admission (4 sources) Dietary counseling and surveillance; Translations: [DIETARY COUNSELING AND SURVEILLANCE] Onset: 10-31-2022 Episodic Anxiety disorders (20 sources) Anxiety; Translations: [Anxiety disorder, unspecified] Onset: 06-29-2020 06-29-2020 Chronic Conditions associated with dizziness or vertigo (2 sources) Dizziness; Translations: [Dizziness and giddiness] 04-03-2025 Episodic Deficiency and other anemia (2 sources) Anemia; Translations: [Anemia, unspecified] 04-03-2025 Episodic Diabetes mellitus without complication (20 sources) Other abnormal glucose; Translations: [Abnormal glucose level] Onset: 10-22-2022 Episodic Diabetes or abnormal glucose tolerance complicating ; childbirth; or the puerperium (8 sources) Gestational diabetes mellitus in , unspecified control; Translations: [Gestational diabetes mellitus complicating ] Onset: 07-24-2022 10-17-2023 Episodic Disorders of lipid metabolism (7 sources) Mixed hyperlipidemia; Translations: [Mixed hyperlipidemia] Onset: 02-20-2024 05-20-2024 Chronic Esophageal disorders (6 sources) Gastroesophageal reflux disease; Translations: [Gastro-esophageal reflux disease without esophagitis] Onset: 11-12-2024 11-12-2024 Chronic Genitourinary symptoms and ill-defined conditions (2 sources) Urinary symptoms ; Translations: [Unspecified symptoms and signs involving the genitourinary system] 04-03-2025 Episodic Hemorrhage during ; abruptio placenta; placenta previa (1 source) Other antepartum hemorrhage, first trimester; Translations: [Other antepartum hemorrhage, first trimester] Onset: 12-20-2024 Episodic Immunizations and screening for infectious disease (4 sources) Encounter for screening for infections with a predominantly sexual mode of transmission; Translations: [Encounter for screening for human papillomavirus (HPV)] Onset: 04-20-2022 01-15-2025 Episodic Miscellaneous mental health disorders (20 sources) Insomnia disorder related to another mental disorder; Translations: [Insomnia due to other mental disorder] Onset: 05-02-2020 Resolved: 02-20-2024 05-02-2020 Chronic Other complications of (4 sources) Maternal care for excessive growth, third trimester, not applicable or unspecified; Translations: [MAT CARE EXCSS FTL GRTH 3RD TRI UNS] Onset: 12-17-2022 Episodic Other complications of (3 sources) Maternal care for excessive growth, unspecified trimester, not applicable or unspecified; Translations: [MAT CARE EXCSS FTL GRTH UNS TRI UNS] Onset: 12-10-2022 Episodic Other complications of (2 sources) Gastroesophageal reflux disease in ; Translations: [Diseases of the digestive system complicating , unspecified trimester] 01-15-2025 Episodic Other female genital disorders (20 sources) Pain in female genitalia on intercourse; Translations: [Unspecified dyspareunia] Onset: 11-30-2020 Resolved: 02-20-2024 11-30-2020 Chronic Other female genital disorders (2 sources) Vaginal discharge; Translations: [Other specified noninflammatory disorders of vagina] 01-15-2025 Episodic Other injuries and conditions due to external causes (4 sources) Encounter for examination and observation following other accident; Translations: [ENC EXAM AND OBSERVATION FOLLOW OTH ACC] Onset: 12-12-2022 Episodic Other liver diseases (3 sources) Steatosis of liver; Translations: [Fatty (change of) liver, not elsewhere classified] Onset: 03-06-2024 03-06-2024 Chronic Other nutritional; endocrine; and metabolic disorders (1 source) Body mass index 30+ - obesity; Translations: [Body mass index (BMI) 37.0-37.9, adult] Onset: 03-01-2024 03-01-2024 Chronic Other nutritional; endocrine; and metabolic disorders (3 sources) Obesity; Translations: [Class 2 obesity with body mass index (BMI) of 37.0 to 37.9 in adult] Onset: 03-01-2024 03-01-2024 Chronic Other and delivery including normal (20 sources) Encounter for supervision of normal , unspecified, unspecified trimester; Translations: [ state, incidental] Onset: 07-01-2022 Episodic Other screening for suspected conditions (not mental disorders or infectious disease) (20 sources) Encounter for other screening follow-up; Translations: [Encounter for screening, unspecified] Onset: 04-18-2022 Episodic Other upper respiratory disease (8 sources) Seasonal allergic rhinitis; Translations: [Other seasonal allergic rhinitis] Onset: 06-29-2020 06-29-2020 Chronic Polyhydramnios and other problems of amniotic cavity (4 sources) Subchorionic hematoma; Translations: [Other specified disorders of amniotic fluid and membranes, first trimester, not applicable or unspecified] Onset: 12-20-2024 12-18-2024 Episodic Residual codes; unclassified (1 source) 34 weeks gestation of ; Translations: [34 WEEKS GESTATION OF ] Onset: 12-19-2022 Episodic Residual codes; unclassified (1 source) 33 weeks gestation of ; Translations: [33 WEEKS GESTATION OF ] Onset: 12-15-2022 Episodic Residual codes; unclassified (1 source) Gestation period, 8 weeks; Translations: [8 weeks gestation of ] 11-14-2024 Episodic Residual codes; unclassified (3 sources) H/O: miscarriage; Translations: [Personal history of other complications of , childbirth and the puerperium] 11-14-2024 Episodic Residual codes; unclassified (2 sources) Gestation period, 12 weeks; Translations: [12 weeks gestation of ] 12-18-2024 Episodic Residual codes; unclassified (2 sources) Gestation period, 17 weeks; Translations: [17 weeks gestation of ] 01-15-2025 Episodic Residual codes; unclassified (2 sources) Gestation period, 20 weeks; Translations: [20 weeks gestation of ] 02-11-2025 Episodic Residual codes; unclassified (10 sources) Gestation period, 23 weeks; Translations: [23 weeks gestation of ] Onset: 02-26-2025 02-26-2025 Episodic Residual codes; unclassified (2 sources) Gestation period, 25 weeks; Translations: [25 weeks gestation of ] 03-12-2025 Episodic Residual codes; unclassified (2 sources) Gestation period, 28 weeks; Translations: [28 weeks gestation of ] 04-03-2025 Episodic Unclassified (1 source) Cancer cervix screening status; Translations: [Screening for cervical cancer] Unclassified (3 sources) Patient encounter status; Translations: [Encounter for annual routine gynecological examination] Unclassified (19 sources) OB Reminders Onset: 11-29-2024 11-29-2024 Past or Other Problems Problem Classification Problem Date Documented Da te Episodic/Chronic Cardiac dysrhythmias (2 sources) Palpitations; Translations: [Palpitations] Onset: 03-20-2023 Episodic Deficiency and other anemia (3 sources) Iron deficiency anemia; Translations: [Iron deficiency anemia, unspecified] Onset: 10-25-2023 10-25-2023 Episodic Deficiency and other anemia (1 source) Iron deficiency anemia, unspecified; Translations: [Iron deficiency anemia, unspecified] Onset: 10-25-2023 Episodic Malaise and fatigue (20 sources) Fatigue; Translations: [Other fatigue] Onset: 05-02-2020 05-02-2020 Episodic Menstrual disorders (20 sources) Amenorrhea; Translations: [Amenorrhea, unspecified] Onset: 06-23-2022 Resolved: 02-20-2024 Chronic Other disorders of stomach and duodenum (20 sources) Indigestion; Translations: [Functional dyspepsia] Onset: 01-13-2023 01-13-2023 Episodic Other female genital disorders (4 sources) Other specified noninflammatory disorders of vagina; Translations: [OTH SPEC NONINFLAMMATORY D/O VAGINA] Onset: 09-12-2022 Episodic Other gastrointestinal disorders (20 sources) Heartburn; Translations: [Heartburn] Onset: 01-13-2023 01-13-2023 Episodic Other liver diseases (4 sources) Elevated liver enzymes level; Translations: [Abnormal levels of other serum enzymes] Onset: 03-01-2024 05-20-2024 Episodic Other liver diseases (1 source) Abnormal levels of other serum enzymes; Translations: [Abnormal levels of other serum enzymes] Onset: 03-01-2024 Episodic Other skin disorders (3 sources) Acne; Translations: [Acne, unspecified] Onset: 10-17-2023 Resolved: 11-12-2024 10-17-2023 Episodic Other upper respiratory infections (2 sources) Sore throat symptom; Translations: [Acute pharyngitis, unspecified] Onset: 09-10-2024 Resolved: 10-10-2024 10-10-2024 Episodic Residual codes; unclassified (1 source) Family history of other diseases of the digestive system; Translations: [Family history of other diseases of the digestive system] Onset: 03-06-2024 Episodic Urinary tract infections (20 sources) Recurrent urinary tract infection; Translations: [Urinary tract infection, site not specified] Onset: 11-30-2020 Resolved: 02-20-2024 Episodic Results Test Name Value Interpretation Reference Range Facil ity Urinalysis macro (dipstick) panel (U)on 04-03-2025 Bilirubin, UA Negative Negative - 4(70) +++ mg/dL [facility] Blood, UA Negative Negative - 50 Yunior/mcL [facility] Clarity, UA Clear [facility] Color, UA Yellow [facility] Glucose, UA Negative Negative - 1999(110) ++++ mg/dL [facility] Interpretation and review of laboratory results Abnormal [facility] Ketones, UA Negative Negative - 160(16) ++++ mg/dL [facility] Leukocytes, UA Positive Negative - 500+++ Trip/mcL [facility] Nitrite, UA Negative Negative - Positive [facility] pH, UA 6.5 5 - 9 [facility] Protein, UA Negative Negative - 1999(20) ++++ mg/dL [facility] Spec Grav, UA 1.01 1 - 1.03 [facility] Urobilinogen, UA 1.0 0.2 - 12 mg/dL [facility] Urinalysis macro (dipstick) panel (U)on 03-12-2025 Bilirubin, UA Negative Negative - 4(70) +++ mg/dL [facility] Blood, UA Negative Negative - 50 Yunior/mcL [facility] Healthcare Clarity, UA Clear [facility] Color, UA Yellow [facility] Glucose, UA Negative Negative - 1999(110) ++++ mg/dL [facility] Interpretation and review of laboratory results Normal [facility] Ketones, UA Negative Negative - 160(16) ++++ mg/dL [facility] Leukocytes, UA Negative Negative - 500+++ Trip/mcL [facility] Nitrite, UA Negative Negative - Positive [facility] pH, UA 6.5 5 - 9 [facility] Protein, UA Negative Negative - 1999(20) ++++ mg/dL [facility] Spec Grav, UA 1.01 1 - 1.03 [facility] Urobilinogen, UA 1.0 0.2 - 12 mg/dL [facility] Urinalysis macro (dipstick) panel (U)on 02-26-2025 Bilirubin, UA Negative Negative - 4(70) +++ mg/dL [facility] Blood, UA Negative Negative - 50 Yunior/mcL [facility] Healthcare Clarity, UA Clear [facility] Color, UA Yellow [facility] Glucose, UA Negative Negative - 1999(110) ++++ mg/dL [facility] Interpretation and review of laboratory results Normal [facility] Ketones, UA Negative Negative - 160(16) ++++ mg/dL [facility] Leukocytes, UA Negative Negative - 500+++ Trip/mcL [facility] Nitrite, UA Negative Negative - Positive [facility] pH, UA 6 5 - 9 [facility] Protein, UA Negative Negative - 1999(20) ++++ mg/dL [facility] Spec Grav, UA 1.01 1 - 1.03 [facility] Urobilinogen, UA 0.2 0.2 - 12 mg/dL [facility] US OB 14+ WEEKS ANATOMY SCAN on 02-11-2025 US OB 14+ WEEKS ANATOMY SCAN FINDINGS: A single, live intrauterine is present with normal cardiac rate of 141 beats per minute. Normal activity and amniotic fluid volume. Morphology is grossly normal. The cervix is long and closed, 4.5 cm. The placenta is anterior fundal, inferior margin 7 cm from the closed internal cervical os. The current sonographic age is 21 weeks and 0 days, based on the following measurements: BPD 5.0 cm (21 weeks, 0 days) Head Circumference 18.6 cm (20 weeks, 6 days) Abdominal Circumference 15.8 cm (21 weeks, 0 days) Femur Length 3.4 cm (20 weeks, 6 days) Presentation Cephalic Placenta Anterior fundal These measurements result in an estimated date of delivery of June 24, 2025. The current estimated weight is 385 grams (0 pounds, 14 ounces). IMPRESSION: Single, live intrauterine , current sonographic age of 21 weeks and 0 days, with an estimated date of delivery of June 24, 2025. TRANSCRIBED BY: ELECTRONICALLY SIGNED BY: Ron Reyes MD Normal Not Available Comment on above: Order Comment: US OB ANATOMY SINGLE W US OB CERVICAL LENGTH Estimated Date of Delivery: 06/23/25 Gestational Age as of 01/15/2025: 17w2d Urinalysis macro (dipstick) panel (U)on 02-11-2025 Bilirubin, UA Negative Negative - 4(70) +++ mg/dL [facility] Blood, UA Negative Negative - 50 Yunior/mcL [facility] Clarity, UA Clear [facility] Color, UA Yellow [facility] Glucose, UA Negative Negative - 1999(110) ++++ mg/dL [facility] Interpretation and review of laboratory results Normal [facility] Ketones, UA Negative Negative - 160(16) ++++ mg/dL [facility] Leukocytes, UA Negative Negative - 500+++ Trip/mcL [facility] Nitrite, UA Negative Negative - Positive [facility] pH, UA 6.5 5 - 9 [facility] Protein, UA Negative Negative - 2000(20) ++++ mg/dL [facility] Spec Grav, UA 1.025 1 - 1.03 [facility] Urobilinogen, UA 1.0 0.2 - 12 mg/dL [facility] RECURRENT VAGINITIS (HTRX)on 01-17-2025 ATOPOBIUM VAGINAE 0 [facility] ATOPOBIUM VAGINAE Not detected [facility] BVAB 2,3 (BACTERIAL VAGINOSIS ASSOCIATED BACTERIA 2, 3); MOBILUNCUS SPP 0 [facility] BVAB 2,3 (BACTERIAL VAGINOSIS ASSOCIATED BACTERIA 2, 3); MOBILUNCUS SPP Not detected [facility] AINSLEY ALBICANS, PARAPSILOSIS, TROPICALIS 0 [facility] AINSLEY ALBICANS, PARAPSILOSIS, TROPICALIS Not detected [facility] AINSLEY GLABRATA 0 [facility] AINSLEY GLABRATA Not detected [facility] AINSLEY KRUSEI 0 [facility] AINSLEY KRUSEI Not detected [facility] CHLAMYDIA TRACHOMATIS 0 [facility] CHLAMYDIA TRACHOMATIS Not detected [facility] GARDNERELLA VAGINALIS 0 [facility] GARDNERELLA VAGINALIS Not detected [facility] MEGASPHAERA (TYPES 1, 2) 0 [facility] MEGASPHAERA (TYPES 1, 2) Not detected [facility] MYCOPLASMA GENITALIUM 0 [facility] MYCOPLASMA GENITALIUM Not detected [facility] NEISSERIA GONORRHOEAE 0 [facility] NEISSERIA GONORRHOEAE Not detected [facility] TRICHOMONAS VAGINALIS 0 [facility] TRICHOMONAS VAGINALIS Not detected [facility] CBCon 01-07-2025 Erythrocyte distribution width (RBC) [Ratio] 12.6 % 11.8 - 14.4 % [facility] Hematocrit (Bld) [Volume fraction] 35.4 % Low 36.3 - 47.1 % [facility] Hemoglobin (Bld) [Mass/Vol] 11.7 g/dL Low 11.9 - 15.1 g/dL [facility] Interpretation and review of laboratory results Abnormal [facility] MCH (RBC) [Entitic mass] 30 pg 25.2 - 33.5 pg [facility] MCHC (RBC) [Mass/Vol] 33.1 g/dL 28.4 - 34.8 g/dL [facility] MCV (RBC) [Entitic vol] 90.8 fL 82.6 - 102.9 fL [facility] Nucleated RBC/100 WBC (Bld) [Ratio] 0 % 0.0 per 100 WBC [facility] Platelet mean volume (Bld) [Entitic vol] 8.7 fL 8.1 - 13.5 fL [facility] Platelets (Bld) [#/Vol] 316 10*3/uL [facility] RBC (Bld) [#/Vol] 3.9 10*6/uL Low 3.95 - 5.1 1 m/uL [facility] WBC other (Bld) [#/Vol] 10.2 [facility] Erythrocyte distribution width (RBC) [Ratio] 12.6 % Normal 11.8-14.[address] [facility] Comment on above: Performed By: #### G LUSC, CBC #### [address] [address] Service Desk Specialist: Yelena Greco MD Hematocrit (Bld) [Volume fraction] 35.4 % Low 36.3-47.[address] [facility] Comment on above: Performed By: #### G LUSC, CBC #### [address] [place] [address] [place] [address] Service Desk Specialist: Yelena Greco MD Hemoglobin (Bld) [Mass/Vol] 11.7 g/dL Low 11.9-15.[address] [facility] Comment on above: Performed By: #### G LUSC, CBC #### [address] [place] [place] [address] Service Desk Specialist: Yelena Greco MD MCH (RBC) [Entitic mass] 30.0 pg Normal 25.2-33.[address] [facility] Comment on above: Performed By: #### G LUSC, CBC #### [facility] [address] [place], [place] [id number] Service Desk Specialist: Yelena Greco MD MCHC (RBC) [Mass/Vol] 33.1 g/dL Normal 28.4-34.[address] [facility] Comment on above: Performed By: #### G JANAE, CBC #### [address] [place], [facility] Service Desk Specialist: Yelena Greco MD MCV (RBC) [Entitic vol] 90.8 fL Normal 82.6-102.[address] [facility] Comment on above: Performed By: #### G JANAE, CBC #### [address] [place], [place] [id number] Service Desk Specialist: Yelena Greco MD NRBC Automated 0.0 per 100 WBC Normal 0.[address] [facility] Comment on above: Performed By: #### G JANAE, CBC #### [address] [place], [facility]83 Service Desk Specialist: Yelena Greco MD Platelet mean volume (Bld) [Entitic vol] 8.7 fL Normal 8.1-13.[address] [facility] Comment on above: Performed By: #### G JANAE, CBC #### [address] [place], [facility]83 Service Desk Specialist: Yelena Greco MD Platelets (Bld) [#/Vol] 316 10*3/uL Normal 138-[address] [facility] Comment on above: Performed By: #### G JANAE, CBC #### [address] [place], [place] [id number] Service Desk Specialist: Yelena Greco MD RBC (Bld) [#/Vol] 3.90 10*6/uL Low 3.95-5.[address] [facility] Comment on above: Performed By: #### G JANAE, CBC #### [address] [place] [address] [place] [address] Service Desk Specialist: Yelena Greco MD WBC (Bld) [#/Vol] 10.2 10*3/uL Normal 3.5-11.[address] [facility] Comment on above: Performed By: #### Honorio CARDOSO, CBC #### [facility] [address] [place] [address] [place] [address] Service Desk Specialist: Yelena Greco MD Glucose Challenge Gestationa harlan 01-07-2025 GLU ADMN Glucola [facility] Glucose 1 Hr post 50 g glucose PO [Mass/Vol] 184 mg/dL High 70 - 135 mg/dL [facility] Interpretation and review of laboratory results Abnormal [facility] Glucose Toya Scr 50gon 2024 Glucose [Mass/Vol] 184 mg/dL High 70-[address] [facility] Comment on above: Performed By: #### Honorio CARDOSO, CBC #### [facility] [address] [place], [place] [id number] Service Desk Specialist: Yelena Greco MD Glu Administered via Glucola Normal [facility] Comment on above: Performed By: #### Honorio CARDOSO, CBC #### [facility] [address] [place], [place] [id number] Service Desk Specialist: Yelena Greco MD US OB LESS THAN 14 WEEKS SIN GLE OR FIRST GESTATIONon 12-23-2024 EXAMINATION: FIRST TRIMESTER OBSTETRIC ULTRASOUND 12/20/2024 TECHNIQUE: 1. Transvaginal first trimester obstetric pelvic duplex ultrasound was performed with real-time imaging, color flow Doppler imaging, and spectral analysis. COMPARISON: None HISTORY: ORDERING SYSTEM PROVIDED HISTORY: Subchorionic hematoma, antepartum, first trimester, not applicable or unspecified fetus FINDINGS: The uterus is enlarged. There is an intrauterine gestational sac. There is evidence of an intrauterine and an embryo seen within the gestational sac. The crown rump length measures 7.2 cm corresponding to 13 weeks, 3 days gestational age. heart rate is identified at 158 bpm. The estimated due date is 06/24/2025. Evidence of a subchorionic hemorrhage along the uterine fundus measuring 2.3 x 1.0 cm. Also suggestion of a smaller subchorionic hemorrhage near the internal os measuring 1.3 x 0.6 x 1.6 cm. Right ovary is normal size and echogenicity. Left ovary is not visualized. Doppler spectral analysis and color flow Doppler was obtained and shows adequate vascularity tothe right ovary. No free fluid noted. IMPRESSION: Early living intrauterine with a gestational age of 13 weeks, 3 days Evidence of a subchorionic hemorrhage along the uterine fundus measuring 2.3 x 1.0 cm. Also suggestion of a smaller subchorionic hemorrhage near the internal os measuring 1.3 x 0.6 x 1.6 cm. Interpreted by: Noah Rivero MD Signed by: Noah Rivero MD 12/23/24 Final result [facility] Radiology, Radiologist, MD - 12/23/2024 EXAMINATION: FIRST TRIMESTER OBSTETRIC ULTRASOUND 12/20/2024 TECHNIQUE: 1. Transvaginal first trimester obstetric pelvic duplex ultrasound was performed with real-time imaging, color flow Doppler imaging, and spectral analysis. COMPARISON: None HISTORY: ORDERING SYSTEM PROVIDED HISTORY: Subchorionic hematoma, antepartum, first trimester, not applicable or unspecified fetus FINDINGS: The uterus is enlarged. There is an intrauterine gestational sac. There is evidence of an intrauterine and an embryo seen within the gestational sac. The crown rump length measures 7.2 cm corresponding to 13 weeks, 3 days gestational age. heart rate is identified at 158 bpm. The estimated due date is 06/24/2025. Evidence of a subchorionic hemorrhage along the uterine fundus measuring 2.3 x 1.0 cm. Also suggestion of a smaller subchorionic hemorrhage near the internal os measuring 1.3 x 0.6 x 1.6 cm. Right ovary is normal size and echogenicity. Left ovary is not visualized. Doppler spectral analysis and color flow Doppler was obtained and shows adequate vascularity tothe right ovary. No free fluid noted. IMPRESSION: Early living intrauterine with a gestational age of 13 weeks, 3 days Evidence of a subchorionic hemorrhage along the uterine fundus measuring 2.3 x 1.0 cm. Also suggestion of a smaller subchorionic hemorrhage near the internal os measuring 1.3 x 0.6 x 1.6 cm. Interpreted by: Noah Rivero MD Signed by: Noah Rivero MD 12/23/24 Final result [facility] Radiology Study observation (narrative) [facility] US OB LESS THAN 14 WEEKS SIN GLE OR FIRST GESTATIONOrdered By: Radiologist Radiology on 12-23-2024 [facility] Work Phone: US OB LESS THAN 14 WEEKS SIN GLE OR FIRST GESTATION W DOPPLERon 12-23-2024 US OB LESS THAN 14 WEEKS SINGLE OR FIRST GESTATION W DOPPLER EXAMINATION: FIRST TRIMESTER OBSTETRIC ULTRASOUND 12/20/2024 TECHNIQUE: 1. Transvaginal first trimester obstetric pelvic duplex ultrasound was performed with real-time imaging, color flow Doppler imaging, and spectral analysis. COMPARISON: None HISTORY: ORDERING SYSTEM PROVIDED HISTORY: Subchorionic hematoma, antepartum, first trimester, not applicable or unspecified fetus FINDINGS: The uterus is enlarged. There is an intrauterine gestational sac. There is evidence of an intrauterine and an embryo seen within the gestational sac. The crown rump length measures 7.2 cm corresponding to 13 weeks, 3 days gestational age. heart rate is identified at 158 bpm. The estimated due date is 06/24/2025. Evidence of a subchorionic hemorrhage along the uterine fundus measuring 2.3 x 1.0 cm. Also suggestion of a smaller subchorionic hemorrhage near the internal os measuring 1.3 x 0.6 x 1.6 cm. Right ovary is normal size and echogenicity. Left ovary is not visualized. Doppler spectral analysis and color flow Doppler was obtained and shows adequate vascularity tothe right ovary. No free fluid noted. IMPRESSION: Early living intrauterine with a gestational age of 13 weeks, 3 days Evidence of a subchorionic hemorrhage along the uterine fundus measuring 2.3 x 1.0 cm. Also suggestion of a smaller subchorionic hemorrhage near the internal os measuring 1.3 x 0.6 x 1.6 cm. Interpreted by: Noah Rivero MD Signed by: Noah Rivero MD 12/23/24 Final result Normal [facility] Urinalysis macro (dipstick) panel (U)on 12-18-2024 Bilirubin, UA Negative Negative - 4(70) +++ mg/dL [facility] Blood, UA Positive Negative - 50 Yunior/mcL [facility] Clarity, UA Clear [facility] Color, UA Yellow [facility] Glucose, UA Negative Negative - 2000(110) ++++ mg/dL [facility] Interpretation and review of laboratory results Abnormal [facility] Ketones, UA Negative Negative - 160(16) ++++ mg/dL [facility] Leukocytes, UA Negative Negative - 500+++ Trip/mcL [facility] Nitrite, UA Negative Negative - Positive [facility] pH, UA 7 5 - 9 [facility] Protein, UA Negative Negative - 1999(20) ++++ mg/dL [facility] Spec Grav, UA 1.01 1 - 1.03 [facility] Urobilinogen, UA 1.0 0.2 - 12 mg/dL [facility] HCG ( test) Ql (U)o n 11-14-2024 Interpretation and review of laboratory results Abnormal [facility] Preg Test, Ur Positive Negative [facility] US OB TRANSVAGINALon 025 US OB TRANSVAGINAL EXAM: US OB TRANSVAGINAL HISTORY: Dating. A1. x1. LMP 09/16/2024. COMPARISON: None available. TECHNIQUE: Two-dimensional transvaginal grayscale and color Doppler ultrasound imaging of the pelvis was performed. FINDINGS: The uterus demonstrates a normal homogeneous echotexture. The cervical os is closed. The right ovary measures 2.8 x 2.0 x 2.7 cm and demonstrates a normal echotexture. There is normal color Doppler flow. The left ovary is not visualized. No fluid is present within the cul-de-sac. There is a single, live intrauterine gestation identified with a heart rate of 154 beats per minute and a crown-rump length measurement of 1.6 cm, correlating to a gestational age of 8 weeks 0 days (+/- 5 days). There is a 2.5 x 0.8 x 2.2 cm subchorionic hemorrhage visualized. A yolk sac is visualized. IMPRESSION: 1. Single, live intrauterine gestation 8 weeks, 3 days by LMP. Today's ultrasound measurements correlate with a gestational age of 8 weeks 0 days (+/- 5 days). JOCELIN by today's ultrasound is June 26, 2025. 2. Small subchorionic hemorrhage. 3. Normal color and spectral Doppler evaluation of the bilateral ovaries. Interpreted by: Electronically signed by MCKAYLA MARIA II, MD, PHD at 15-Nov-2024 09:44:32 AM [facility] Normal Not Available Comment on above: Order Comment: US OB TRANSVAGINAL No LMP recorded. Urinalysis macro (dipstick) panel (U)on 11-14-2024 Bilirubin, UA Negative Negative - 4(70) +++ mg/dL [facility] Blood, UA Negative Negative - 50 Yunior/mcL [facility] Clarity, UA Clear [facility] Color, UA Yellow [facility] Glucose, UA Negative Negative - 1999(110) ++++ mg/dL [facility] Interpretation and review of laboratory results Normal [facility] Ketones, UA Negative Negative - 160(16) ++++ mg/dL [facility] Leukocytes, UA Negative Negative - 500+++ Trip/mcL [facility] Nitrite, UA Negative Negative - Positive [facility] pH, UA 6.5 5 - 9 [facility] Protein, UA Negative Negative - 1999(20) ++++ mg/dL [facility] Spec Grav, UA 1.005 1 - 1.03 [facility] Urobilinogen, UA 0.2 0.2 - 12 mg/dL [facility] IGP,APTIMA HPV,AGE GDLNon AGE GDLN ACOG TESTING Note . [facility] Comment on above: TESTS RESULT FLAG UN ITS REF RANGE LAB Clinician Provided Cytology Information Source.............Cervix;Endocervix No. of containers..01 ThinPrep Vial Age Algo ACOG Addie... -21 08 FLAG LEGEND: L-Low Normal,H-High Normal,LL-Alert Low,HH-Alert High <-Panic Low,>-Panic High,A-Abnormal,AA-Critical Abnormal Performed at: 01 =G [facility] [address] [place] [address] Anastasiya Moses MD, IGP, RFX APTIMA HPV ASCU Note . [facility] Comment on above: TESTS RESULT FLAG UN ITS REF RANGE LAB DIAGNOSIS: 02 NEGATIVE FOR INTRAEPITHELIAL LESION OR MALIGNANCY. Specimen adequacy: 02 Satisfactory for evaluation. Endocervical and/or squamous metaplastic cells (endocervical component) are present. Performed by: 02 Maico Galaviz, Overhead Line Worker ([facility]) . 02 Note: Note 02 The Pap smear is a screening test designed to aid in the detection of premalignant and malignant conditions of the uterine cervix. It is not a diagnostic procedure and should not be used as the sole means of detecting cervical cancer. Both false-positive and false-negative reports do occur. Test Methodology: Note 02 This liquid based ThinPrep(R) pap test was screened with the use of an image guided system. . 02 The HPV DNA reflex criteria were not met with this specimen result therefore, no HPV testing was performed. FLAG LEGEND: L-Low Normal,H-High Normal,LL-Alert Low,HH-Alert High <-Panic Low,>-Panic High,A-Abnormal,AA-Critical Abnormal Performed at: 02 WB [facility] [address] [address] Anastasiya Moses MD, Performed at: =G - [facility] [address] [id number] Service Desk Specialist: Anastasiya Moses MD, Phone: [phone] Performed at: WB - [facility] [address] [id number] Service Desk Specialist: Anastasiya Moses MD, Phone: [phone] BRUSH-SPATULA CERVIX ENDOCERVIX [facility] Comp Metabolic Profon 2023 Albumin [Mass/Vol] 4.6 g/dL Normal 3.5-5.[address] [facility] Comment on above: Performed By: #### C P #### [facility] [address] [place] [place] [address] Service Desk Specialist: Yelena Greco MD Albumin/Glob Ratio 1.5 Normal 1.0-2.[address] [facility] Comment on above: Performed By: #### C P #### [facility] [address] [place] [place] [address] Service Desk Specialist: Yelena Greco MD Alkaline Phos 71 U/L Normal 35-104 [facility] Comment on above: Performed By: #### C P #### [facility] [address] [place] [address] Service Desk Specialist: Yelena Greco MD ALT [Catalytic activity/Vol] 41 U/L High 10-[address] [facility] Comment on above: Performed By: #### C P #### [facility] [address] [place] [address] [place] [address] Service Desk Specialist: Yelena Greco MD Anion gap [Moles/Vol] 10 mmol/L Normal 9-[address] [facility] Comment on above: Performed By: #### C P #### [facility] [address] [place] [id number] Service Desk Specialist: Yelena Greco MD AST [Catalytic activity/Vol] 34 U/L Normal 10-[address] [facility] Comment on above: Performed By: #### C P #### [facility] [address] [place], [place] [id number] Service Desk Specialist: Yelena Greco MD Bilirubin [Mass/Vol] 0.4 mg/dL Normal 0.00-1.20 [facility] Comment on above: Performed By: #### C P #### [facility] [address] [place], [place] [address] Service Desk Specialist: Yelena Greco MD BUN/CRE Ratio 22 High 9-20 [facility] Comment on above: Performed By: #### C P #### [facility] [address] [place], [place] [address] Service Desk Specialist: Yelena Greco MD Calcium [Mass/Vol] 9.4 mg/dL Normal 8.6-10.[address] [facility] Comment on above: Performed By: #### C P #### [facility] [address] [place], [place] [address] Service Desk Specialist: Yelena Greco MD Chloride [Moles/Vol] 103 mmol/L Normal 98-107 [facility] Comment on above: Performed By: #### C P #### [facility] [address] [place], [place] [address] Service Desk Specialist: Yelena Greco MD CO2 [Moles/Vol] 25 mmol/L Normal 20-31 [facility] Comment on above: Performed By: #### C P #### [facility] [address] [place], [place] [address] Service Desk Specialist: Yelena Greco MD Creatinine [Mass/Vol] 0.6 mg/dL Normal 0.50-0.[address] [facility] Comment on above: Performed By: #### C P #### [facility] [address] [place] [address] [place] [address] Service Desk Specialist: Yelena Greco MD GFR/1.73 sq M.predicted among non-blacks MDRD (S/P/Bld) [Vol rate/Area] mL/min/{1.73_m2} Normal >[address] [facility] Comment on above: Result Comment: These results [...] secretion. Performed By: #### C P #### [facility] [address] [place] [place] [address] Service Desk Specialist: Yelena Greco MD Glucose [Mass/Vol] 83 mg/dL Normal 74-[address] [facility] Comment on above: Performed By: #### C P #### [facility] [address] [place] [place] [address] Service Desk Specialist: Yelena Greco MD Potassium [Moles/Vol] 4.6 mmol/L Normal 3.7-5.[address] [facility] Comment on above: Performed By: #### C P #### [facility] [address] [place] [address] [place] [address] Service Desk Specialist: Yelena Greco MD Protein [Mass/Vol] 7.8 g/dL Normal 6.6-8.[address] [facility] Comment on above: Performed By: #### C P #### [facility] [address] [place] [place] [address] Service Desk Specialist: Yelena Greco MD Sodium [Moles/Vol] 138 mmol/L Normal 136-[address] [facility] Comment on above: Performed By: #### C P #### [facility] [address] [place] [place] [address] Service Desk Specialist: Yelena Greco MD Urea nitrogen [Mass/Vol] 13 mg/dL Normal 6-[address] [facility] Comment on above: Performed By: #### C P #### [facility] [address] [place] [place] [address] Service Desk Specialist: Yelena Greco MD Comprehensive Metabolic Pane [facility] 05-20-2024 Albumin [Mass/Vol] 4.6 g/dL 3.5 - 5.2 g/dL [facility] Albumin/Globulin [Mass ratio] 1.5 {ratio} 1.0 - 2.5 [facility] ALP [Catalytic activity/Vol] 71 U/L 35 - 104 U/L [facility] ALT [Catalytic activity/Vol] 41 U/L High 10 - 35 U/L [facility] Anion gap [Moles/Vol] 10 mmol/L 9 - 16 mmol/L [facility] AST [Catalytic activity/Vol] 34 U/L 10 - 35 U/L [facility] Bilirubin [Mass/Vol] 0.4 mg/dL 0.00 - 1.20 mg/dL [facility] Calcium [Mass/Vol] 9.4 mg/dL 8.6 - 10. 4 mg/dL [facility] Chloride [Moles/Vol] 103 mmol/L 98 - 107 mmol/L [facility] CO2 [Moles/Vol] 25 mmol/L 20 - 31 mmol/L [facility] Creatinine [Mass/Vol] 0.6 mg/dL 0.50 - 0.90 mg/dL [facility] Est, Glom Filt Rate - PINF [facility] Comment on above: These results are not [...] [Mass/Vol] 83 mg/dL 74 - 99 mg/dL [facility] Interpretation and review of laboratory results Abnormal [facility] Potassium [Moles/Vol] 4.6 mmol/L 3.7 - 5.3 mmol/L [facility] Protein [Mass/Vol] 7.8 g/dL 6.6 - 8.7 g/dL [facility] Sodium [Moles/Vol] 138 mmol/L 136 - 145 mmol/L [facility] Urea nitrogen [Mass/Vol] 13 mg/dL 6 - 20 mg/dL [facility] Urea nitrogen/Creatinine [Mass ratio] 22 mg/mg High 9 - 20 [facility] Lipid Panelon 05-20-2024 Cholesterol [Mass/Vol] 152 mg/dL 0 - 199 mg/dL [facility] Comment on above: Cholesterol Guidelines: <200 Desirable 200-240 Borderline >240 Undesirable Cholesterol in HDL [Mass/Vol] 33 mg/dL Low 40 - PINF mg/dL [facility] Comment on above: HDL Guidelines: <40 Undesirable 40-59 Borderline >59 Desirable Cholesterol in LDL [Mass/Vol] 88 mg/dL 0 - 100 mg/dL [facility] Comment on above: LDL Guidelines: <100 Desirable 100-129 Near to/above Desirable 130-159 Borderline >159 Undesirable Direct (measured) LDL and calculated LDL are not interchangeable tests. Cholesterol in VLDL [Mass/Vol] 31 mg/dL [facility] Cholesterol.total/Ch olesterol in HDL [Mass ratio] 5.0 {ratio} [facility] Interpretation and review of laboratory results Abnormal [facility] Triglyceride [Mass/Vol] 156 mg/dL High NINF - 150 mg/dL [facility] Comment on above: Triglyceride Guidelines: <150 Desirable 150-199 Borderline 200-499 High >499 Very high Based on AHA Guidelines for fasting triglyceride, April 2012. [facility] Lipid Profileon 05-20-2024 Cholesterol [Mass/Vol] 152 mg/dL Normal 0-[address] [facility] Comment on above: Result Comment: Cholesterol Guidelines: <200 Desirable 200-240 Borderline >240 Undesirable Performed By: #### L IPR #### [facility] [employer] [facility] [place] [address] Service Desk Specialist: Osvaldo Santamaria MD Cholesterol in HDL [Mass/Vol] 33 mg/dL Low >[address] [facility] Comment on above: Result Comment: HDL Guidelines: <40 Undesirable 40-59 Borderline >59 Desirable Performed By: #### L IPR #### [address] [address] Service Desk Specialist: Osvaldo Santamaria MD Cholesterol in LDL [Mass/Vol] 88 mg/dL Normal 0-[address] [facility] Comment on above: Result Comment: LDL Guidelines: <100 Desirable 100-129 Near to/above Desirable 130-159 Borderline >159 Undesirable Direct (measured) LDL and calculated LDL are not interchangeable tests. Performed By: #### L IPR #### [address] [address] Service Desk Specialist: Osvaldo Santamaria MD Cholesterol in VLDL [Mass/Vol] 31 mg/dL Normal [facility] Comment on above: Performed By: #### L IPR #### [address] [address] Service Desk Specialist: Osvaldo Santamaria MD Cholesterol.total/Ch olesterol in HDL [Mass ratio] 5.0 {ratio} Normal [facility] Comment on above: Performed By: #### L IPR #### [address] [address] Service Desk Specialist: Osvaldo Santamaria MD Triglyceride [Mass/Vol] 156 mg/dL High <[address] [facility] Comment on above: Result Comment: Triglyceride Guidelines: <150 Desirable 150-199 Borderline 200-499 High >499 Very high Based on AHA Guidelines for fasting triglyceride, April 2012. Performed By: #### L IPR #### [address] [address] Service Desk Specialist: Osvaldo Santamaria MD US GALLBLADDER RUQon 03-06- 024 US GALLBLADDER RUQ EXAMINATION: RIGHT UPPER QUADRANT ULTRASOUND 03/06/2024 9:58 am COMPARISON: None. HISTORY: ORDERING SYSTEM PROVIDED HISTORY: Elevated liver enzymes TECHNOLOGIST PROVIDED HISTORY: This procedure can be scheduled via MyChart. elevated liver enzymes, fam hx gallbladder disease. [...] Hernandez Stewart MD 03/06/24 Final result Normal [facility] CBCon 02-16-2024 Erythrocyte distribution width (RBC) [Ratio] 12.4 % Normal 11.8-14.[address] [facility] Comment on above: Performed By: #### F EBC #### [address] [address] Service Desk Specialist: Osvaldo Santamaria MD #### CBC, CP #### [facility] [address] [place] [address] [place] [address] Service Desk Specialist: Yelena Greco MD Hematocrit (Bld) [Volume fraction] 40.2 % Normal 36.3-47.[address] [facility] Comment on above: Performed By: #### F EBC #### [address] [address] Service Desk Specialist: Osvaldo Santamaria MD #### CBC, CP #### [facility] [address] [place] [address] [place] [address] Service Desk Specialist: Yelena Greco MD Hemoglobin (Bld) [Mass/Vol] 13.5 g/dL Normal 11.9-15.[address] [facility] Comment on above: Performed By: #### F EBC #### [address] [address] Service Desk Specialist: Osvaldo Santamaria MD #### CBC, CP #### [facility] [address] [place] [place] [address] Service Desk Specialist: Yelena Greco MD MCH (RBC) [Entitic mass] 29.8 pg Normal 25.2-33.[address] [facility] Comment on above: Performed By: #### F EBC #### [address] [id number] Service Desk Specialist: Osvaldo Santamaria MD #### CBC, CP #### [facility] [address] [place] [place] [address] Service Desk Specialist: Yelena Greco MD MCHC (RBC) [Mass/Vol] 33.6 g/dL Normal 28.4-34.[address] [facility] Comment on above: Performed By: #### F EBC #### [address] [id number] Service Desk Specialist: Osvaldo Santamaria MD #### CBC, CP #### [facility] [address] [place] [address] Dr[address] [place] [id number] Service Desk Specialist: Yelena Greco MD MCV (RBC) [Entitic vol] 88.7 fL Normal 82.6-102.[address] [facility] Comment on above: Performed By: #### F EBC #### [address] [id number] Service Desk Specialist: Osvaldo Santamaria MD #### CBC, CP #### [facility] [address] [place] [address] [place] [address] Service Desk Specialist: Yelena Greco MD NRBC Automated 0.0 per 100 WBC Normal 0.[address] [facility] Comment on above: Performed By: #### F EBC #### [address] [id number] Service Desk Specialist: Osvaldo Santamaria MD #### CBC, CP #### [facility] [address] [place], [place] [id number] Service Desk Specialist: Yelena Greco MD Platelet mean volume (Bld) [Entitic vol] 8.5 fL Normal 8.1-13.[address] [facility] Comment on above: Performed By: #### F EBC #### [address] [id number] Service Desk Specialist: Osvaldo Santamaria MD #### CBC, CP #### [facility] [address] [place], [place] [id number] Service Desk Specialist: Yelena Greco MD Platelets (Bld) [#/Vol] 309 10*3/uL Normal 138-[address] [facility] Comment on above: Performed By: #### F EBC #### [address] [address] Service Desk Specialist: Osvaldo Santamaria MD #### CBC, CP #### [facility] [address] [place], [place] [id number] Service Desk Specialist: Yelena Greco MD RBC (Bld) [#/Vol] 4.53 10*6/uL Normal 3.95-5.[address] [facility] Comment on above: Performed By: #### F EBC #### [address] [address] Service Desk Specialist: Osvaldo Santamaria MD #### CBC, CP #### [facility] [address] [place] [address] Service Desk Specialist: Yelena Greco MD WBC (Bld) [#/Vol] 6.5 10*3/uL Normal 3.5-11.[address] [facility] Comment on above: Performed By: #### F EBC #### [address] [address] Service Desk Specialist: Osvaldo Santamaria MD #### CBC, CP #### [facility] [address] [place], [place] [id number] Service Desk Specialist: Yelena Greco MD Comp Metabolic Profon 2023 Albumin [Mass/Vol] 4.5 g/dL Normal 3.5-5.[address] [facility] Comment on above: Performed By: #### F EBC #### [address] [address] Service Desk Specialist: Osvaldo Santamaria MD #### CBC, CP #### [facility] [address] [place], [place] [id number] Service Desk Specialist: Yelena Greco MD Albumin/Glob Ratio 1.5 Normal 1.0-2.[address] [facility] Comment on above: Performed By: #### F EBC #### [address] [address] Service Desk Specialist: Osvaldo Santamaria MD #### CBC, CP #### [address] [place], [place] [phone] Service Desk Specialist: Yelena Greco MD Alkaline Phos 74 U/L Normal 35-104 [facility] Comment on above: Performed By: #### F EBC #### [address] [address] Service Desk Specialist: Osvaldo Santamaria MD #### CBC, CP #### [address] [place], [place] [id number] Service Desk Specialist: Yelena Greco MD ALT [Catalytic activity/Vol] 61 U/L High 5-[address] [facility] Comment on above: Performed By: #### F EBC #### [address] [address] Service Desk Specialist: Osvaldo Santamaria MD #### CBC, CP #### [address] [place], [place] [phone] Service Desk Specialist: Yelena Greco MD Anion gap [Moles/Vol] 8 mmol/L Low 9-[address] [facility] Comment on above: Performed By: #### F EBC #### [facility] [address] [place] [address] Service Desk Specialist: Osvaldo Santamaria MD #### CBC, CP #### [facility] [address] [place], [place] [phone] Service Desk Specialist: Yelena Greco MD AST [Catalytic activity/Vol] 43 U/L High <[address] [facility] Comment on above: Performed By: #### F EBC #### [address] [address] Service Desk Specialist: Osvaldo Santamaria MD #### CBC, CP #### [facility] [address] [place] [address] Dr. [place] [phone] Service Desk Specialist: Yelena Greco MD Bilirubin [Mass/Vol] 0.2 mg/dL Low 0.3-1.2 [facility] Comment on above: Performed By: #### F EBC #### [facility] [address] [place] [address] Service Desk Specialist: Osvaldo Santamaria MD #### CBC, CP #### [address] [place] [phone] Service Desk Specialist: Yelena Greco MD BUN/CRE Ratio 20 Normal 9-20 [facility] Comment on above: Performed By: #### F EBC #### [facility] [address] [place] [address] Service Desk Specialist: Osvaldo Santamaria MD #### CBC, CP #### [facility] [address] [place], [place] [phone] Service Desk Specialist: Yelena Greco MD Calcium [Mass/Vol] 9.4 mg/dL Normal 8.6-10.[address] [facility] Comment on above: Performed By: #### F EBC #### [facility] [address] [place] [address] Service Desk Specialist: Osvaldo Santamaria MD #### CBC, CP #### [facility] [address] [place], [place] [phone] Service Desk Specialist: Yelena Greco MD Chloride [Moles/Vol] 100 mmol/L Normal 98-107 [facility] Comment on above: Performed By: #### F EBC #### [address] [address] Service Desk Specialist: Osvaldo Santamaria MD #### CBC, CP #### [facility] [address] [place] [address] Service Desk Specialist: Yelena Greco MD CO2 [Moles/Vol] 28 mmol/L Normal 20-31 [facility] Comment on above: Performed By: #### F EBC #### [address] [address] Service Desk Specialist: Osvaldo Santamaria MD #### CBC, CP #### [facility] [address] [place], [place] [phone] Service Desk Specialist: Yelena Greco MD Creatinine [Mass/Vol] 0.6 mg/dL Normal 0.5-0.[address] [facility] Comment on above: Performed By: #### F EBC #### [address] [place] [address] Service Desk Specialist: Osvaldo Santamaria MD #### CBC, CP #### [facility] [address] [place] [address] Service Desk Specialist: Yelena Greco MD GFR/1.73 sq M.predicted among non-blacks MDRD (S/P/Bld) [Vol rate/Area] mL/min/{1.73_m2} Normal >[address] [facility] Comment on above: Result Comment: These results [...] affects renal tubular secretion. Performed By: #### F EBC #### [address] [address] Service Desk Specialist: Osvaldo Santamaria MD #### CBC, CP #### [facility] [address] [place] [address] [place] [address] Service Desk Specialist: Yelena Greco MD Glucose [Mass/Vol] 91 mg/dL Normal 70-[address] [facility] Comment on above: Performed By: #### F EBC #### [address] [address] Service Desk Specialist: Osvaldo Santamaria MD #### CBC, CP #### [facility] [address] [place] [address] [place] [address] Service Desk Specialist: Yelena Greco MD Potassium [Moles/Vol] 4.2 mmol/L Normal 3.7-5.[address] [facility] Comment on above: Performed By: #### F EBC #### [address] [address] Service Desk Specialist: Osvaldo Santamaria MD #### CBC, CP #### [facility] [address] [place] [address] Service Desk Specialist: Yelena Greco MD Protein [Mass/Vol] 7.6 g/dL Normal 6.4-8.[address] [facility] Comment on above: Performed By: #### F EBC #### [address] [address] Service Desk Specialist: Osvaldo Santamaria MD #### CBC, CP #### [address] [place], [place] [phone] Service Desk Specialist: Yelena Greco MD Sodium [Moles/Vol] 136 mmol/L Normal 135-[address] [facility] Comment on above: Performed By: #### F EBC #### [address] [address] Service Desk Specialist: Osvaldo Santamaria MD #### CBC, CP #### [address] [place], [place] 3380183 Service Desk Specialist: Yelena Greco MD Urea nitrogen [Mass/Vol] 12 mg/dL Normal 6-[address] [facility] Comment on above: Performed By: #### F EBC #### [address] [address] Service Desk Specialist: Osvaldo Santamaria MD #### CBC, CP #### [address] [place] [address] [place] [address] Service Desk Specialist: Yelena Greco MD Iron Binding Cap.on 02-16-20 24 % Fe Saturation 25 % Normal 20-55 [facility] Comment on above: Performed By: #### F EBC #### [address] [address] Service Desk Specialist: Osvaldo Santamaria MD #### CBC, CP #### [address] [place], [place] [phone] Service Desk Specialist: Yelena Greco MD Iron [Mass/Vol] 92 ug/dL Normal 37-145 [facility] Comment on above: Performed By: #### F EBC #### [address] [address] Service Desk Specialist: Osvaldo Santamaria MD #### CBC, CP #### [address] [place] [address] Service Desk Specialist: Yelena Greco MD Total Fe Binding Cap 373 ug/dL Normal 250-450 [facility] Comment on above: Performed By: #### F EBC #### [address] [address] Service Desk Specialist: Osvaldo Santamaria MD #### CBC, CP #### [facility] [address] [place], [place] 1922683 Service Desk Specialist: Yelena Greco MD Unbound Fe Bind Cap 281 ug/dL Normal 112-[address] [facility] Comment on above: Performed By: #### F EBC #### [address] [address] Service Desk Specialist: Osvaldo Santamaria MD #### CBC, CP #### [facility] [address] [place], [place] 1152883 Service Desk Specialist: Yelena Greco MD Lipid Profileon 02-16-2024 Cholesterol [Mass/Vol] 245 mg/dL High 0-[address] [facility] Comment on above: Result Comment: Cholesterol Guidelines: <200 Desirable 200-240 Borderline >240 Undesirable Performed By: #### L IPR #### [address] [address] Service Desk Specialist: Osvaldo Santamaria MD Cholesterol in HDL [Mass/Vol] 34 mg/dL Low >[address] [facility] Comment on above: Result Comment: HDL Guidelines: <40 Undesirable 40-59 Borderline >59 Desirable Performed By: #### L IPR #### [address] [address] Service Desk Specialist: Osvaldo Santamaria MD Cholesterol in LDL [Mass/Vol] 159 mg/dL High 0-[address] [facility] Comment on above: Result Comment: LDL Guidelines: <100 Desirable 100-129 Near to/above Desirable 130-159 Borderline >159 Undesirable Direct (measured) LDL and calculated LDL are not interchangeable tests. Performed By: #### L IPR #### [address] [place] [address] Service Desk Specialist: Osvaldo Santamaria MD Cholesterol in VLDL [Mass/Vol] 52 mg/dL Normal [facility] Comment on above: Performed By: #### L IPR #### [facility] [address] [place] [address] Service Desk Specialist: Osvaldo Santamaria MD Cholesterol.total/Ch olesterol in HDL [Mass ratio] 7.0 {ratio} Normal [facility] Comment on above: Performed By: #### L IPR #### [facility] [address] [place] [address] Service Desk Specialist: Osvaldo Santamaria MD Triglyceride [Mass/Vol] 259 mg/dL High <[address] [facility] Comment on above: Result Comment: Triglyceride Guidelines: <150 Desirable 150-199 Borderline 200-499 High >499 Very high Based on AHA Guidelines for fasting triglyceride, April 2012. Performed By: #### L IPR #### [facility] [address] [place] [address] Service Desk Specialist: Osvaldo Santamaria MD Office Visiton 07-11-2023 Follow-up visit [id number] Vinny Downey 2000 F Date Provider Department Center 07/11/2023 RAJENDRA GUNN SAMSON Mccormick Family History Problem Relation Age of Onset Anemia Mother Supraventricular tachycardia Father Hyperlipidemia Father Diabetes Sister Family Status - Relation Status Age at Mother Father Sister Level of Service:86880 NM OFFICE/OUTPATIENT NEW MODERATE MDM 45 MINUTES Normal [facility] Office Visiton 03-20-2023 Follow-up visit [id number] Vinny Downey 2000 F Date Provider Department Center 03/20/2023 ISRAEL ULLOA SAMSON Mccormick Family History Problem Relation Age of Onset Anemia Mother Supraventricular tachycardia Father Hyperlipidemia Father Diabetes Sister Family Status - Relation Status Age at Mother Father Sister Level of Service:03674 NM OFFICE/OUTPATIENT NEW LOW MDM 30-44 MINUTES Normal [facility] US PREG BIOPHY W NON STRESSo n [...] by: YELENA CARLOS Date: 2022-12-20 07:03 Normal [facility] US PREG PLACENTAon US PREG PLACENTA EXAMINATION: [...] LUIS ALFREDO GRANT Date: 2022-12-12 14:56 Normal [facility] US PREG BIOPHY W NON STRESSo n [...] LUIS ALFREDO GRANT Date: 2022-12-11 04:08 Normal [facility] US PREG GROWTHon 12-11-2022 US PREG GROWTH [...] ALFREDO GRANT Date: 2022-12-11 04:06 Normal [facility] GTT 3 HR PREGon 10-22-2022 Glucose [Mass/Vol] 98 mg/dL Normal 74-106 [facility] Comment on above: Performed By: #### G TT3P #### [facility] [address] [place] [address] Dr. Emilee Springer Glucose [Mass/Vol] 170 mg/dL Normal [facility] Comment on above: Performed By: #### G TT3P #### [facility] [address] [place] [address] Dr. Emilee Springer Glucose [Mass/Vol] 201 mg/dL Normal [facility] Comment on above: Performed By: #### G TT3P #### [facility] [address] [place] [address] Dr. Emilee Springer Glucose [Mass/Vol] 115 mg/dL Normal [facility] Comment on above: Performed By: #### G TT3P #### [facility] [address] [place] [address] Dr. Emilee Springer US PREG INCOMPLETE ANATOMYon 10-16-2022 US PREG INCOMPLETE ANATOMY EXAM: US PREG INCOMPLETE ANATOMY HISTORY: screening COMPARISON: 09/10/2022 TECHNIQUE: Transabdominal FINDINGS: position: Transverse, head to the maternal right Heart rate: 157 bpm Normal observed anatomy: Nose/lips, four-chamber heart, left ventricular outflow tract, right ventricular outflow tract, spine IMPRESSION: Normal observed anatomy Electronically authenticated by: YELENA CARLOS Date: 2022-10-16 08:44 Normal [facility] CBC AUTO DIFFon 10-15-2022 BASO # 0.0 103/ul Normal 0.0-0.1 [facility] Comment on above: Performed By: #### C BC #### [facility] [address] [place] [address] Dr. Emilee Springer Basophils/100 WBC (Bld) 0.2 % Normal 0.2-2.0 [facility] Comment on above: Performed By: #### C BC #### [facility] [address] [place] [address] Dr. Emilee Springer EO # 0.1 103/ul Normal 0.0-0.7 [facility] Comment on above: Performed By: #### C BC #### [facility] [address] [place] [address] Dr. Emilee Springer Eosinophils/100 WBC (Bld) 0.8 % Critically low 0.9-7.0 [facility] Comment on above: Performed By: #### C BC #### [facility] [address] [place] [address] Dr. Emilee Springer Erythrocyte distribution width (RBC) [Ratio] 12.5 % Normal 11.0-15.0 [facility] Comment on above: Performed By: #### C BC #### [facility] [address] [place] [address] Dr. Emilee Springer Hematocrit (Bld) [Volume fraction] 29.8 % Critically low 36.0-48.0 [facility] Comment on above: Performed By: #### C BC #### [facility] [address] [place] [address] Dr. Emilee Springer Hemoglobin (Bld) [Mass/Vol] 10.0 g/dL Critically low 12.0-16.0 [facility] Comment on above: Performed By: #### C BC #### [facility] [address] [place] [address] Dr. Emilee Springer IG # 0.05 10e3/ul Critically high 0.00-0.03 [facility] Comment on above: Performed By: #### C BC #### [facility] [address] [place] [address] Dr. Emilee Springer IG % 0.5 % Normal 0.0-0.5 [facility] Comment on above: Performed By: #### C BC #### [facility] [address] [place] [address] Dr. Emilee Springer LYMPH # 1.6 103/ul Normal 1.2-3.8 [facility] Comment on above: Performed By: #### C BC #### [facility] [address] [place] [address] Dr. Emilee Springer Lymphocytes/100 WBC (Bld) 15.3 % Critically low 20.5-60.0 [facility] Comment on above: Performed By: #### C BC #### [facility] [address] [place] [address] Dr. Emilee Springer MANUAL DIFF REQ NO Normal [facility] Comment on above: Performed By: #### C BC #### [facility] [address] [place] [address] Dr. Emilee Springer MCH (RBC) [Entitic mass] 30.2 pg Normal 26.7-34.0 [facility] Comment on above: Performed By: #### C BC #### [facility] [address] [place] [address] Dr. Emilee Springer MCHC (RBC) [Mass/Vol] 33.6 g/dL Normal 29.9-35.2 [facility] Comment on above: Performed By: #### C BC #### [facility] [address] [place] [address] Dr. Emilee Springer MCV (RBC) [Entitic vol] 90.0 fL Normal 81.0-99.0 [facility] Comment on above: Performed By: #### C BC #### [facility] [address] [place] [address] Dr. Emilee Springer MONO # 0.6 103/ul Normal 0.3-0.8 [facility] Comment on above: Performed By: #### C BC #### [facility] [address] [address] [address] Emilee Springer Monocytes/100 WBC (Bld) 5.8 % Normal 1.7-12.0 [facility] Comment on above: Performed By: #### C BC #### [facility] [address] [address] [address] Emilee Springer NEUT # 8.2 103/ul Critically high 1.4-6.5 [facility] Comment on above: Performed By: #### C BC #### [facility] [address] [place] [address] Dr. Emilee Springer Neutrophils/100 WBC (Bld) 77.4 % Critically high 43.0-75.0 [facility] Comment on above: Performed By: #### C BC #### [facility] [address] [place] [address] Dr. Emilee Springer Platelet mean volume (Bld) [Entitic vol] 8.5 fL Critically low 9.5-13.5 [facility] Comment on above: Performed By: #### C BC #### [facility] [address] [place] [address] Dr. Emilee Springer PLT 347 103/ul Normal 150-450 [facility] Comment on above: Performed By: #### C BC #### [facility] [address] [place] [address] Dr. Emilee Springer RBC 3.31 106/ul Critically low 4.20-5.40 [facility] Comment on above: Performed By: #### C BC #### [facility] [address] [place] [address] Dr. Emilee Springer WBC 10.6 103/ul Normal 4.0-11.0 [facility] Comment on above: Performed By: #### C BC #### [facility] [address] [place] [address] Dr. Emilee Springer GLUCOSE - 1HRon 10-15-2022 Glucose [Mass/Vol] 176 mg/dL Critically high 74-106 [facility] Comment on above: Performed By: #### G LU1HR #### [facility] [address] [address] [address] Emilee Springer CHLAMYDIA/GONOCOCCUS ANISA (SW AB/URINE/PAPon 09-15-2022 Chlamydia trachomatis, ANISA Negative Normal Negative [facility] [place] Comment on above: Performed By: #### C BC #### [facility] [address] [place] [address] Dr. Emilee Springer Neisseria gonorrhoeae, ANISA Negative Normal Negative [facility] [place] Comment on above: Performed By: #### C BC #### [facility] [address] [place] [address] Dr. Emilee Springer VAGINITIS/VAGINOSIS DNA PROB Leonid 09-14-2022 Ainsley species Negative Normal Negative [facility] Comment on above: Performed By: #### C BC #### [facility] [address] [place] [address] Dr. Emilee Springer Gardnerella vaginalis Negative Normal Negative [facility] [place] Comment on above: Performed By: #### C BC #### [facility] [address] [place] [address] Dr. Emilee Springer Trichomonas vaginalis Negative Normal Negative [facility] [place] Comment on above: Performed By: #### C BC #### [facility] [address] [place] [address] Dr. Emilee Springer US PREG ANATOMY SINGLEon [...] ALFREDO GRANT Date: 2022-09-13 16:57 Normal [facility] AFP MATERNAL FOR SPINA BIFID Aon 08-31-2022 AFP MoM 0.42 Normal [facility] Comment on above: Performed By: #### A FPMAT #### [facility] [address] [address] [address] Emilee Springer AFP Value 16.7 ng/mL Normal [facility] [place] Comment on above: Performed By: #### A FPMAT #### [facility] [address] [address] [address] Emilee Springer AFP, Serum for Spina Bifida Report Normal [facility] Comment on above: Performed By: #### A FPMAT #### [facility] [address] [address] [address] Emilee Springer Comment Comment Normal [facility] Comment on above: Result Comment: Darío Machado, Ph.D., [facility] Director . References: Available Upon Request. . Multiples Of Median Cutoffs For AFP Elevations Berkowitz 2.5 Black 2.8 IDD 2.0 Twins 4.5 Abbreviation Definitions IDD - Insulin Dep Diabetes OSBR - Open Spina Bifida Risk . For further inquiries contact [employer] at [phone]. . This test was developed and its performance characteristics determined by [employer]. It has not been cleared or approved by the Food and Drug Administration. Performed By: #### A FPMAT #### [facility] [address] [address] [address] Emilee Springer Gest Age Collection Date 18.6 weeks Normal [facility] [place] Comment on above: Performed By: #### A FPMAT #### [facility] [address] [place] [address] Dr. Emilee Springer Gestat, Age Based on JOCELIN [facility] Comment on above: Result Comment: 12/2022 Recalculations are not recommended when gestational dating by LMP and ultrasound are within 10 days. Performed By: #### A FPMAT #### [facility] [address] [place] [address] Dr. Emilee Springer Insulin Dep Diabetes Comment Normal [facility] [place] Comment on above: Result Comment: Not provided. . Performed By: #### A FPMAT #### [facility] [address] [place] [address] Dr. Emilee Springer Interpretation Comment Normal [facility] Comment on above: Result Comment: Inte [...] Customer Services to discuss available options. The [employer] recommends amniocentesis be offered to women age 35 and older. Performed By: #### A FPMAT #### [facility] [address] [place] [address] Dr. Emilee Springer [age] Normal [facility] Comment on above: Performed By: #### A FPMAT #### [facility] [address] [place] [address] Dr. Emilee Springer Multiple Gestation Comment Normal [facility] Comment on above: Result Comment: Not provided. . Performed By: #### A FPMAT #### [facility] [address] [place] [address] Dr. Emilee Springer [place] [address] Normal [facility] Comment on above: Performed By: #### A FPMAT #### [facility] [address] [place] [address] Dr. Emilee Springer PDF . Normal [facility] [place] Comment on above: Performed By: #### A FPMAT #### [facility] [address] [place] [address] Dr. Emilee Springer Race Comment Normal [facility] [place] Comment on above: Result Comment: Not provided. . Performed By: #### A FPMAT #### [facility] [address] [place] [address] Dr. mEilee Springer Test Results: Negative Normal [facility] Comment on above: Performed By: #### A FPMAT #### [facility] [address] [place] [address] Dr. Emilee Springer Rubella antibody, IgGon Rubella virus IgG Ql (S) 314.5 IU/mL [facility] Comment on above: REFERENCE RANGE: <5.0 NON-REACTIVE (non-immune) 5.0 TO 9.9 EQUIVOCAL >=10.0 REACTIVE (immune) [facility] HEP B SURFACE ANTIGEN SCREEN on 07-05-2022 HBsAg Screen Negative Normal Negative [facility] [place] Comment on above: Performed By: #### H BSANS #### [facility] [address] [place] [address] Dr. Emilee Springer HEPATITIS C VIRUS AB W/ REFL EX QUANTon 07-05-2022 HCV AB <0.1 Normal 0.0-0.9 [facility] [place] Comment on above: Performed By: #### H CVPCRR #### [facility] [address] [place] [address] Dr. Emilee Springer Interpretation: Comment Normal [facility] Comment on above: Result Comment: Nega tive Not infected with HCV, unless recent infection is suspected or other evidence exists to indicate HCV infection. Performed By: #### H CVPCRR #### [facility] [address] [place] [address] Dr. Emilee Springer HIV 1 AND 2 WITH REFLEXon HIV Screen 4th Generation wRfx Non-Reactive Normal Non Reactive [facility] Comment on above: Result Comment: HIV Negative HIV-1/HIV-2 antibodies and HIV-1 p24 antigen were NOT detected. There is no laboratory evidence of HIV infection. Performed By: #### C BC #### [facility] [address] [place] [address] Dr. Emilee Springer RPR QUANTon 07-05-2022 Rapid Plasma Reagin, Quant Non-Reactive Normal NonRea<1:1 [facility] Comment on above: Result Comment: Plea se Note: This test does not meet current guidelines for screening and diagnosis of syphilis. This test is intended for following treatment response in patients being treated for syphilis infection. To screen for syphilis infection, a reflex cascade that includes both RPR and a treponema-specific assay should be utilized, such as Treponema pallidum (Syphilis) Screening [place] (005028) or Rapid Plasma Reagin (RPR) Test With Reflex to Quantitative RPR and Confirmatory Treponema pallidum Antibodies (149796). Performed By: #### C BC #### [facility] [address] [place] [address] Dr. Emilee Springer RUBELLA AB IGGon 07-05-2022 Rubella Antibodies, IgG 5.03 index Normal Immune >0.99 [facility] Comment on above: Result Comment: Non- immune <0.90 Equivocal 0.90 - 0.99 Immune >0.99 Performed By: #### R UBIGG #### [facility] [address] [place] [address] Dr. Emilee Springer CBC AUTO DIFFon 07-04-2022 BASO # 0.0 103/ul Normal 0.0-0.1 [facility] Comment on above: Performed By: #### G LU1HR #### [facility] [address] [place] [address] Dr. Emilee Springer Basophils/100 WBC (Bld) 0.2 % Normal 0.2-2.0 [facility] [place] Comment on above: Performed By: #### G LU1HR #### [facility] [address] [place] [address] Dr. Emilee Springer EO # 0.1 103/ul Normal 0.0-0.7 [facility] [place] Comment on above: Performed By: #### G LU1HR #### [facility] [address] [place] [address] Dr. Emilee Springer Eosinophils/100 WBC (Bld) 0.9 % Normal 0.9-7.0 [facility] Comment on above: Performed By: #### G LU1HR #### [facility] [address] [place] [address] Dr. Emilee Springer Erythrocyte distribution width (RBC) [Ratio] 11.9 % Normal 11.0-15.0 [facility] [place] Comment on above: Performed By: #### G LU1HR #### [facility] [address] [place] [address] Dr. Emilee Springer Hematocrit (Bld) [Volume fraction] 32.9 % Critically low 36.0-48.0 [facility] [place] Comment on above: Performed By: #### G LU1HR #### [facility] [address] [place] [address] Dr. Emilee Springer Hemoglobin (Bld) [Mass/Vol] 11.6 g/dL Critically low 12.0-16.0 [facility] [place] Comment on above: Performed By: #### G LU1HR #### [facility] [address] [place] [address] Dr. Emilee Springer IG # 0.03 10e3/ul Normal 0.00-0.03 [facility] Comment on above: Performed By: #### G LU1HR #### [facility] [address] [place] [address] Dr. Emilee Springer IG % 0.3 % Normal 0.0-0.5 [facility] Comment on above: Performed By: #### G LU1HR #### [facility] [address] [place] [address] Dr. Emilee Springer LYMPH # 2.1 103/ul Normal 1.2-3.8 [facility] Comment on above: Performed By: #### G LU1HR #### [facility] [address] [place] [address] Dr. Emilee Springer Lymphocytes/100 WBC (Bld) 20.2 % Critically low 20.5-60.0 [facility] [place] Comment on above: Performed By: #### G LU1HR #### [facility] [address] [place] [address] Dr. Emilee Springer MANUAL DIFF REQ NO Normal [facility] Comment on above: Performed By: #### G LU1HR #### [facility] [address] [place] [address] Dr. Emilee Springer MCH (RBC) [Entitic mass] 31.4 pg Normal 26.7-34.0 [facility] [place] Comment on above: Performed By: #### G LU1HR #### [facility] [address] [place] [address] Dr. Emilee Springer MCHC (RBC) [Mass/Vol] 35.3 g/dL Critically high 29.9-35.2 [facility] [place] Comment on above: Performed By: #### G LU1HR #### [facility] [address] [place] [address] Dr. Emilee Springer MCV (RBC) [Entitic vol] 89.2 fL Normal 81.0-99.0 [facility] [place] Comment on above: Performed By: #### G LU1HR #### [facility] [address] [place] [address] Dr. Emliee Springer MONO # 0.7 103/ul Normal 0.3-0.8 [facility] [place] Comment on above: Performed By: #### G LU1HR #### [facility] [address] [place] [address] Dr. Emilee Springer Monocytes/100 WBC (Bld) 7.0 % Normal 1.7-12.0 [facility] [place] Comment on above: Performed By: #### G LU1HR #### [facility] [address] [place] [address] Dr. Emilee Springer NEUT # 7.5 103/ul Critically high 1.4-6.5 [facility] Comment on above: Performed By: #### G LU1HR #### [facility] [address] [address] [address] Emilee Springer Neutrophils/100 WBC (Bld) 71.4 % Normal 43.0-75.0 [facility] [place] Comment on above: Performed By: #### G LU1HR #### [facility] [address] [address] [address] Emilee Springer Platelet mean volume (Bld) [Entitic vol] 9.1 fL Critically low 9.5-13.5 [facility] [place] Comment on above: Performed By: #### G LU1HR #### [facility] [address] [place] [address] Dr. Emilee Springer PLT 311 103/ul Normal 150-450 [facility] [place] Comment on above: Performed By: #### G LU1HR #### [facility] [address] [place] [address] Dr. Emilee Springer RBC 3.69 106/ul Critically low 4.20-5.40 [facility] Comment on above: Performed By: #### G LU1HR #### [facility] [address] [place] [address] Dr. Emilee Springer WBC 10.5 103/ul Normal 4.0-11.0 [facility] [place] Comment on above: Performed By: #### G LU1HR #### [facility] [address] [place] [address] Dr. Emilee Springer CULTURE URINEon 07-04-2022 CULTURE URINE Culture Observations: LIGHT GROWTH OF MIXED GENITAL BREN. NO POTENTIAL PATHOGENS SEEN. Normal [facility] Comment on above: Performed By: #### G LU1HR #### [facility] [address] [place] [address] Dr. Emilee Springer GLYCOHEMOGLOBIN A1Con 2021 ADA RECOMMENDATION SEE BELOW Normal [facility] Comment on above: Result Comment: ADA RECOMMENDED LIMIT 4.0 - 6.0 ADA THERAPEUTIC TARGET < 7.0 ACTION SUGGESTED > 7.0 Performed By: #### A 1C #### [facility] [address] [address] [address] Emilee Springer Glucose [Mass/Vol] 108 mg/dL Normal [facility] Comment on above: Performed By: #### A 1C #### [facility] [address] [address] [address] Emilee Srpinger HbA1c (Bld) [Mass fraction] 5.4 % Normal 4.5-6.2 [facility] [place] Comment on above: Performed By: #### A 1C #### [facility] [address] [address] [address] Emilee Springer ALLEN BOX TEST PT SEND OUTo n 07-04-2022 SENT TO REF LAB 07/04/2022 Normal [facility] Comment on above: Performed By: #### N BOX #### [facility] [address] [place] [address] Dr. Emilee Springer TYPE AND SCREENon 07-04-2022 TYPE AND SCREEN Negative Normal [facility] Comment on above: Performed By: #### G LU1HR #### [facility] [address] [place] [address] Dr. Emilee Springer US PREG TVon 06-23-2022 [...] by: YELENA CARLOS Date: 2022-06-23 17:00 Normal [facility] HCG, Quantitative, on 06-02-2022 hCG Quant [id number] High NINF [facility] Comment on above: Non-preg premeno <=5 Postmeno <=8 Male <=3 If HCG results do not concur with clinical observations, additional testing to confirm results is recommended. Interpretation and review of laboratory results Abnormal [facility] PAP ACOG PANEL 2: 21 to 29on 04-24-2022 . . Normal [facility] [place] Comment on above: Performed By: #### 4 [id number] #### [facility] [address] [place] [address] Dr. Emilee Springer Age Gdln ACOG Testing 21-29 Normal [facility] [place] Comment on above: Performed By: #### 4 [id number] #### [facility] [address] [address] [address] Emilee Springer DIAGNOSIS: Comment [facility] Comment on above: Result Comment: NEGA TIVE FOR INTRAEPITHELIAL LESION OR MALIGNANCY. CELLULAR CHANGES ASSOCIATED WITH INFLAMMATION ARE PRESENT. Performed By: #### 4 [id number] #### [facility] [address] [place] [address] Dr. Emilee Springer Methodology: Comment [facility] Comment on above: Result Comment: This liquid based ThinPrep(R) pap test was screened with the use of an image guided system. Performed By: #### 4 [id number] #### [facility] [address] [place] [address] Dr. Emilee Springer Note: Comment [facility] Comment on above: Result Comment: The Pap smear is a screening test designed to aid in the detection of premalignant and malignant conditions of the uterine cervix. It is not a diagnostic procedure and should not be used as the sole means of detecting cervical cancer. Both false-positive and false-negative reports do occur. . Performed By: #### 4 [id number] #### [facility] [address] [place] [address] Dr. Emilee Springer Performed by: Comment Normal [facility] Comment on above: Result Comment: Maynor Adams, Overhead Line Worker Performed By: #### 4 [id number] #### [facility] [address] [place] [address] Dr. Emilee Springer Reflex Criteria: Comment [facility] Comment on above: Result Comment: The HPV DNA reflex criteria were not met with this specimen result therefore, no HPV testing was performed. . Performed By: #### 4 [id number] #### [facility] [address] [place], [place] [address] Dr. Emilee Springer Specimen adequacy: Comment Normal [facility] Comment on above: Result Comment: Sati sfactory for evaluation. Endocervical and/or squamous metaplastic cells (endocervical component) are present. Performed By: #### 4 [id number] #### [facility] [address] [place], [place] [address] Dr. Emilee Springer HCG, Quantitative, on 08-10-2021 hCG Quant 45 High <5 IU/L [facility] Comment on above: Non-preg premeno <=5 Postmeno <=8 Male <=3 If HCG results do not concur with clinical observations, additional testing to confirm results is recommended. Elevated results not associated with may be found in patients with other diseases such as tumors of the germ cells (testis, ovaries, etc.), bladder, pancreas, stomach, lungs, and liver. Interpretation and review of laboratory results Abnormal [facility] US RENAL COMPLETEOrdered By: Lorena Ricks on 11-25-2020 Unremarkable ultrasound of the kidneys and urinary bladder. [employer] Phone: EXAMINATION: RETROPERITONEAL ULTRASOUND OF THE KIDNEYS AND URINARY BLADDER 11/25/2020 COMPARISON: None HISTORY: ORDERING SYSTEM PROVIDED HISTORY: Frequent UTI TECHNOLOGIST PROVIDED HISTORY: This procedure can be scheduled via [employer]. Access your [employer] account by visiting [employer]. FINDINGS: Kidneys: The right kidney measures 11.1 cm in length and the left kidney measures 11.6 cm in length. Kidneys demonstrate normal cortical echogenicity. No evidence of hydronephrosis or intrarenal stones. Bladder: Unremarkable appearance of the bladder. No significant post void residual. [employer] Phone: [place], M[facility] Incoming Radiant Results From [employer] - 11/25/2020 3:59 PM EDT EXAMINATION: RETROPERITONEAL ULTRASOUND OF THE KIDNEYS AND URINARY BLADDER 11/25/2020 COMPARISON: None HISTORY: ORDERING SYSTEM PROVIDED HISTORY: Frequent UTI TECHNOLOGIST PROVIDED HISTORY: This procedure can be scheduled via [employer]. Access your [employer] account by visiting [employer]. FINDINGS: Kidneys: The right kidney measures 11.1 cm in length and the left kidney measures 11.6 cm in length. Kidneys demonstrate normal cortical echogenicity. No evidence of hydronephrosis or intrarenal stones. Bladder: Unremarkable appearance of the bladder. No significant post void residual. IMPRESSION: Unremarkable ultrasound of the kidneys and urinary bladder. [facility] Work Phone: [employer] 10-14-2020 Forms [id number]# 1.00CD:[address] [facility] Ambulatory Clinical Summaryo n 10-13-2020 Ambulatory Clinical Summary {[id number]}CD:[id number] Normal [facility] General Surgery Office/Clini c Noteon 10-13-2020 General Surgery Office/Clinic Note Chief Complaint post operative follow up HPI Staff 8 day post operative follow up post lap appendectomy completed while in-patient at [facility]. Doing well. Minimal discomfort. Taking Ibuprofen 400mg [...] available Patient Education Exercise to Lose Weight, Onqe-ph-Qmnm Problem List/Past Medical History Ongoing Acute appendicitis [...] Family History Family history is negative Normal [facility] Comment on above: Result Comment: Elec [...] 10/01/2012 Document Reviewed: 08/12/2011 ExitCare? Patient Information ?2014 [employer]. [facility] Provider Letter FTon 10-13 Provider Letter [facility] October 13, 2020 VINNY VERMA [address] [place] [address] VINNY VERMA 2000 To Whom It May Concern, Please excuse above patient from work 10/14/20. Sincerely, Dr. Sushant Lott MD General Surgery [facility] Pathology Noteon 10-08-2020 Pathology Note [id number] #1.00CD:[address] [facility] Facesheeton 10-07-2020 Facesheet [id number]#1.00CD:[address] [facility] Operative Reporton Operative Report [id number]# 1.00CD:[address] [facility] HIV Screenon 05-05-2020 HIV Ag/Ab NONREACTIVE NONREACTIVE [place], [place] Comment on above: No laboratory eviden ce of HIV infection. If acute HIV infection is suspected, consider testing for HIV-1 RNA. Basic Metabolic Panelon 04-23 Anion gap [Moles/Vol] 11 mmol/L 9 - 17 mmol/L [place], [place] Bun/Cre Ratio 19 [place], [place] Calcium [Mass/Vol] 9.3 mg/dL 8.6 - 10. 4 mg/dL [place] Chloride [Moles/Vol] 103 mmol/L 98 - 107 mmol/L [place] CO2 [Moles/Vol] 23 mmol/L 20 - 31 mmol/L [place] Creatinine [Mass/Vol] 0.57 mg/dL 0.5 - 0.9 mg/dL [place] GFR >60 >60 mL/min [place], [place] GFR Non- >60 >60 mL/min [place] Glucose [Mass/Vol] 88 mg/dL 70 - 99 mg/dL [place], [place] Potassium [Moles/Vol] 4.6 mmol/L 3.7 - 5.3 mmol/L [place] Sodium [Moles/Vol] 137 mmol/L 135 - 144 mmol/L [place] Urea nitrogen [Mass/Vol] 11 mg/dL 6 - 20 mg/dL [place] CBCon 05-04-2020 Erythrocyte distribution width (RBC) [Ratio] 11.7 % Low 11.8 - 14.4 % [place] Hematocrit (Bld) [Volume fraction] 36.4 % 36.3 - 47.1 % [place] Hemoglobin (Bld) [Mass/Vol] 12.2 g/dL 11.9 - 15.1 g/dL [place] Interpretation and review of laboratory results Abnormal [place] MCH (RBC) [Entitic mass] 31.4 pg 25.2 - 33.5 pg [place] MCHC (RBC) [Mass/Vol] 33.5 g/dL 28.4 - 34.8 g/dL [place] MCV (RBC) [Entitic vol] 93.8 fL 82.6 - 102.9 fL [place] Platelet mean volume (Bld) [Entitic vol] 9.2 fL 8.1 - 13.5 fL [place], [place] Platelets (Bld) [#/Vol] 307 10*3/uL [place] RBC (Bld) [#/Vol] 3.88 10*6/uL Low 3.95 - 5.1 1 m/uL [place] WBC (Bld) [#/Vol] 7.2 10*3/uL [place] WBC (Bld) [#/Vol] 0.0 10*3/uL 0.0 per 100 WBC M [place] Metabolic Panelon 05-04-2020 GFR/1.73 sq M predicted among non-blacks MDRD (S/P/Bld) [Vol rate/Area] [place], [place] Comment on above: Stage 1: Some [...] body mass. Additional eGFR calculator available at: http://www.[employer]/multiple_crcl_2012.htm TSHon 05-04-2020 TSH Qn 2.22 m[IU]/L [facility], [place] Vital Signs Date Time Vital Sign Value Performing Clinician Facility 04-03-2025 15:44-0400 Body mass index (BMI) [Ratio] 36.61 kg/m2 Regina RUIZ Work Phone: [facility] 04-03-2025 15:44-0400 Body weight 102.88 kg Regina RUIZ Work Phone: [facility] 04-03-2025 15:44-0400 Diastolic blood pressure 70 mm[Hg] Regina RUIZ Work Phone: [facility] 04-03-2025 15:44-0400 Systolic blood pressure 120 mm[Hg] Regina RUIZ Work Phone: [facility] 03-12-2025 16:08-0400 Body mass index (BMI) [Ratio] 36.12 kg/m2 Mukul Law DO Work Phone: [facility] 03-12-2025 16:08-0400 Body weight 101.52 kg Mukul Law DO Work Phone: [facility] 03-12-2025 16:08-0400 Diastolic blood pressure 70 mm[Hg] Mukul Law DO Work Phone: [facility] [facility] 03-12-2025 16:08-0400 Systolic blood pressure 100 mm[Hg] Mukul Law DO Work Phone: [facility] 02-26-2025 15:58-0400 Body mass index (BMI) [Ratio] 35.96 kg/m2 Mukul Law DO Work Phone: [facility] 02-26-2025 15:58-0400 Body weight 101.06 kg Mukul Law DO Work Phone: [facility] 02-26-2025 15:58-0400 Diastolic blood pressure 70 mm[Hg] Mukul Law DO Work Phone: [facility] 02-26-2025 15:58-0400 Systolic blood pressure 110 mm[Hg] Mukul Law DO Work Phone: [facility] 02-11-2025 14:06-0400 Body mass index (BMI) [Ratio] 34.99 kg/m2 Mukul Law DO Work Phone: [facility] 02-11-2025 14:06-0400 Body weight 98.34 kg Mukul Law DO Work Phone: [facility] 02-11-2025 14:06-0400 Diastolic blood pressure 76 mm[Hg] Mukul Law DO Work Phone: [facility] 02-11-2025 14:06-0400 Systolic blood pressure 116 mm[Hg] Mukul Law DO Work Phone: [facility] 01-15-2025 16:41-0400 Body mass index (BMI) [Ratio] 34.19 kg/m2 Mukul Law DO Work Phone: [facility] 01-15-2025 16:41-0400 Body weight 96.07 kg Mukul Law DO Work Phone: [facility] 01-15-2025 16:41-0400 Diastolic blood pressure 72 mm[Hg] Mukul Law DO Work Phone: [facility] 01-15-2025 16:41-0400 Systolic blood pressure 118 mm[Hg] Mukul Law DO Work Phone: [facility] 12-18-2024 16:15-0400 Body mass index (BMI) [Ratio] 34.22 kg/m2 Mukul Law DO Work Phone: [facility] 12-18-2024 16:15-0400 Body weight 96.16 kg Mukul Law DO Work Phone: [facility] 12-18-2024 16:15-0400 Diastolic blood pressure 70 mm[Hg] Mukul Law DO Work Phone: [facility] 12-18-2024 16:15-0400 Systolic blood pressure 116 mm[Hg] Mukul Law DO Work Phone: [facility] 11-14-2024 15:15-0400 Body mass index (BMI) [Ratio] 33.57 kg/m2 Noms Nurse [facility] 11-14-2024 15:15-0400 Body weight 94.35 kg Noms Nurse [facility] 11-14-2024 15:15-0400 Diastolic blood pressure 74 mm[Hg] Noms Nurse [facility] 11-14-2024 15:15-0400 Systolic blood pressure 122 mm[Hg] Noms Nurse [facility] 07-15-2024 16:25-0500 Body mass index (BMI) [Ratio] 32.93 kg/m2 Mukul Law DO Work Phone: [facility] 07-15-2024 16:25-0500 Body weight 92.53 kg Mukulvicki Doziero DO Work Phone: [facility] 08-31-2022 03:06-0500 Body weight 94.[address] MUKUL FOY . [facility] Comment on above: Performed By: #### AFPMAT #### [facility] [address] [place] [address] Dr. Emilee Springer Encounters Encounter Date Encounter Type Care Provider Facility Start: 04-03-2025 End: 04-03-2025 flow sheet Regina RUIZ Work Phone: [facility] Comment on above: 28 weeks gestation o f ([facility]); Third trimester ([facility]); Dizziness; Gestational diabetes mellitus (GDM), antepartum, gestational diabetes method of control unspecified ([facility]); History of miscarriage; Anemia, unspecified type; UTI symptoms Start: 04-03-2025 End: 04-03-2025 Bamboo flowsheet [facility] Start: 04-03-2025 End: 04-03-2025 Bamboo flowsheet Regina RUIZ [facility] Start: 03-12-2025 End: 03-12-2025 ambulatory MUKUL LAW Not Available Start: 03-12-2025 End: 03-12-2025 flow sheet Mukul Law DO Work Phone: [facility] Comment on above: 25 weeks gestation o f ([facility]); Second trimester ([facility]); Gastroesophageal reflux disease without esophagitis Start: 03-12-2025 End: 03-12-2025 Bamboo flowsheet Mukul Law DO Work Phone: [facility] Start: 03-12-2025 End: 03-12-2025 Bamboo flowsheet Mukul Law DO Work Phone: [facility] Start: 02-26-2025 End: 02-26-2025 ambulatory MUKUL LAW Not Available Start: 02-26-2025 End: 02-26-2025 flow sheet Mukul Law DO Work Phone: [facility] Comment on above: 23 weeks gestation o f ([facility]); Elevated blood sugar level; Gastroesophageal reflux disease without esophagitis Start: 02-26-2025 End: 02-26-2025 Bamboo flowsheet Mukul Law DO Work Phone: [facility] Start: 02-26-2025 End: 02-26-2025 Bamboo flowsheet Mukul Law DO Work Phone: [facility] Start: 02-11-2025 End: 02-11-2025 flow sheet Mukul Law DO Work Phone: [facility] Comment on above: Second trimester pre gnancy ([facility]); 20 weeks gestation of ([facility]) Start: 02-11-2025 End: 02-11-2025 ambulatory MUKUL LAW Not Available Start: 01-15-2025 End: 01-15-2025 ambulatory MUKUL LAW Not Available Start: 01-15-2025 End: 01-15-2025 flow sheet Mukul Law DO Work Phone: [facility] Comment on above: Second trimester pre gnancy ([facility]); 17 weeks gestation of ([facility]); Vaginal discharge; STD exposure; Screening, , for anatomic survey ([facility]); Gastroesophageal reflux in ([facility]); Gestational diabetes mellitus (GDM), antepartum, gestational diabetes method of control unspecified ([facility]) Start: 01-15-2025 End: 01-15-2025 Bamboo flowsheet Mukul Law DO Work Phone: [facility] Start: 01-15-2025 End: 01-17-2025 Bamboo flowsheet Mukul Law DO Work Phone: [facility] Start: 01-15-2025 End: 01-17-2025 External Result Encounter Regina RUIZ Work Phone: [facility] Department Unsolicited Start: 01-07-2025 End: 01-07-2025 ambulatory YNES RODRIGUEZ [facility] Start: 01-07-2025 End: 01-07-2025 Subsequent hospital visit by physician Ynes Steele CNP Work Phone: [facility] Start: 12-23-2024 End: 12-23-2024 Clinisync Result Encounter Mukul Law DO Work Phone: [facility] Department Unsolicited Start: 12-23-2024 End: 12-23-2024 Clinisync Result Encounter Mukul Law DO Work Phone: [facility] Department Unsolicited Start: 12-20-2024 End: 12-22-2024 ambulatory YNES RODRIGUEZ [facility] Start: 12-20-2024 End: 12-22-2024 Subsequent hospital visit by physician [facility] Ultrasound Room [facility] Comment on above: Subchorionic hematom a, antepartum, first trimester, not applicable or unspecified fetus Start: 12-18-2024 End: 12-18-2024 ambulatory MUKUL LAW Not Available Start: 12-18-2024 End: 12-18-2024 flow sheet Mukul Law DO Work Phone: [facility] Comment on above: Second trimester pre gnancy; 12 weeks gestation of ; Subchorionic hematoma in first trimester, single or unspecified fetus; Diabetes mellitus screening Start: 12-18-2024 End: 12-18-2024 Bamboo flowsheet Mukul Law DO Work Phone: [facility] Start: 12-18-2024 End: 12-18-2024 Bamboo flowsheet Mukul Law DO Work Phone: [facility] Start: 11-14-2024 End: 11-14-2024 Office outpatient visit 5 minutes [facility] Law Nurse [facility] Comment on above: GA: 8w3d Start: 11-14-2024 End: 11-14-2024 ambulatory MUKUL LAW Not Available Start: 07-15-2024 End: 07-15-2024 Patient encounter procedure Mukul Law DO Work Phone: [facility] Start: 07-15-2024 End: 07-15-2024 Periodic preventive med est patient 18-39 yrs Mukul Law DO Work Phone: [facility] Comment on above: Well woman exam with routine gynecological exam Start: 07-15-2024 End: 07-15-2024 ambulatory MUKUL LAW Not Available Start: 07-15-2024 End: 07-23-2024 Clinisync Result Encounter Mukul Law DO Work Phone: [facility] External Department Unsolicited Start: 07-15-2024 End: 07-23-2024 Clinisync Result Encounter Mukul Law DO Work Phone: [facility] External Department Unsolicited Start: 05-20-2024 End: 05-20-2024 ambulatory YNES RODRIGUEZ [facility] Start: 05-20-2024 End: 05-20-2024 Subsequent hospital visit by physician Ynes Rodriguez RECYCLING MANAGER - [employer] Work Phone: [facility] Comment on above: Elevated liver enzym es; Mixed hyperlipidemia Start: 03-06-2024 End: 03-08-2024 ambulatory [facility]ES [facility] Start: 02-16-2024 End: 02-16-2024 ambulatory YNES [facility] Start: 08-06-2023 End: 08-06-2023 ambulatory Facility:[facility] Start: 07-11-2023 End: 07-11-2023 ambulatory RAJENDRA [facility] Start: 03-20-2023 End: 03-20-2023 ambulatory [facility] Start: 12-17-2022 End: 12-17-[address] MUKUL FOY . Facility:[facility] Start: 12-12-2022 End: 12-12-[address] KYLIE SEYMOUR . Facility:[facility] Start: 12-10-2022 End: 12-10-[address] MUKUL FOY . Facility:[facility] Start: 10-31-2022 End: 11-01-[address] MUKUL FOY . Facility:[facility] Start: 10-22-2022 End: 10-23-2022 ambulatory REGINA BARTON . Facility:[facility] Start: 10-15-2022 End: 10-16-[address] MUKUL FOY . Facility:[facility] Start: 09-12-2022 End: 09-12-[address] MUKUL FOY . Facility:[facility] Start: 09-10-2022 End: 09-11-[address] MUKUL FOY . Facility:[facility] Start: 08-29-2022 End: 08-30-[address] MUKUL FOY . Facility:[facility] Start: 08-01-2022 End: 08-01-2022 Subsequent hospital visit by physician [facility] Start: 07-04-2022 End: 07-05-[address] MUKUL FOY . Facility:[facility] Start: 06-23-2022 End: 06-24-[address] YELENA CARLOS Facility:[facility] Start: 06-09-2022 End: 06-10-[address] MUKUL FOY . Facility:[facility] Start: 06-02-2022 End: 06-02-2022 Subsequent hospital visit by physician Ynes Steele CNP Work Phone: [facility] Start: 04-18-2022 End: 04-18-[address] MUKUL FOY . Facility:[facility] Start: 09-23-2021 End: 09-27-2021 ambulatory BERTO LIVE [facility] Start: 09-08-2021 End: 09-12-2021 ambulatory [facility] Leidy [facility] Start: 08-25-2021 End: 08-29-2021 ambulatory [facility] Start: 08-19-2021 End: 08-23-2021 ambulatory [facility] Start: 08-10-2021 End: 08-10-2021 Subsequent hospital visit by physician Ynes Steele CNP Work Phone: [facility] Comment on above: Amenorrhea Start: 11-25-2020 End: 11-27-2020 Subsequent hospital visit by physician [facility] Ultrasound Room [facility] Comment on above: Frequent UTI Start: 05-04-2020 End: 05-04-2020 Subsequent [facility] visit [facility] physician [facility]nes [facility] Comment on above: Encounter for screen ing for HIV; Other fatigue; Wellness examination Start: 03-03-2020 End: 03-03-2020 Subsequent hospital visit by physician Jannette Peña [facility] Comment on above: Screening for cervic al cancer; Encounter for annual routine gynecological examination Procedures Date Procedure Procedure Detail Performing Clinician Start: 04-03-2025 Urnls dip stick/tabl et rgnt non-auto w/o micrscp Regina RUIZ Work Phone: Start: 03-12-2025 Urnls dip stick/tabl et rgnt non-auto w/o micrscp Mukul Law DO Work Phone: Start: 02-26-2025 Urnls dip stick/tabl et rgnt non-auto w/o micrscp Mukul Law DO Work Phone: Start: 02-11-2025 Urnls dip stick/tabl et rgnt non-auto w/o micrscp Mukul Law DO Work Phone: Start: 01-15-2025 RECURRENT VAGINITIS (HTRX) Regina RUIZ Work Phone: Start: 01-07-2025 Blood count complete automated Regina Barton PA-C Work Phone: Start: 12-23-2024 US OB LESS THAN 14 W EEKS SINGLE OR FIRST GESTATION Mukul Law DO Work Phone: Start: 12-18-2024 Urnls dip stick/tabl et rgnt non-auto w/o micrscp Mukul Law DO Work Phone: Start: 11-14-2024 Urnls dip stick/tabl et rgnt non-auto w/o micrscp Mukul Law DO Work Phone: Start: 07-15-2024 IGP,APTIMA HPV,AGE GDLN Mukul Law DO Work Phone: Start: 07-15-2024 Microscopic observat ion [Identifier] in Cervix by Cyto stain Ynes Rodriguez RECYCLING MANAGER - [employer] Work Phone: Start: 05-20-2024 Lipid panel Ynes hess RECYCLING MANAGER - [employer]ARM[employer]AL Work Phone: Start: 05-20-2024 Comprehensive metabo lic panel Ynes Rodriguez RECYCLING MANAGER - [employer]ARMWORK[employer]AL Work Phone: Start: 07-15-2023 Microscopic observat ion [Identifier] in Cervix by Cyto stain [facility] Start: 08-01-2022 Antibody rubella Fran Barroso RECYCLING MANAGER - [employer]ARMWORK[employer]IMAL Work Phone: Start: 06-02-2022 Gonadotropin chorion ic quantitative Mukul Foy MD Work Phone: Start: 08-10-2021 Gonadotropin chorion ic quantitative Berto Live RECYCLING MANAGER - CN Work Phone: Start: 11-25-2020 Us retroperitoneal r eal time w/image complete Lorena Zeng Tyshawnconrad RECYCLING MANAGER - [employer]ARMWORK[employer]IMAL Work Phone: Start: 05-04-2020 Antibody hiv-1&hiv-2 single result Ynes Rodriguez Work Phone: Start: 05-04-2020 Assay of thyroid sti mulating hormone tsh Ynes Rodriguez Work Phone: Start: 05-04-2020 Basic metabolic pane l calcium total Ynes Rodriguez Work Phone: Start: 05-04-2020 Blood count complete automated Ynesjose raul Rodriguez Work Phone: Start: 03-03-2020 Microscopic observat ion [Identifier] in Cervix by Cyto stain Ynes Rodriguez RECYCLING MANAGER - [employer]ARMWORK[employer]AL Work Phone: Plan of Treatment Date Care Activity Detail Author Start: 07-15-2027 Screening for malign ant neoplasm of cervix Pap smear [facility] Start: 07-15-2026 Screening for malign ant neoplasm of cervix Pap smear [facility] Start: 08-07-2025 Depression Screen Depression Screen [facility] Start: 07-28-2025 End: 07-28-2025 Patient encounter procedure [facility] Start: 05-20-2025 Lipid panel Lipids [facility] Start: 05-14-2025 End: 05-14-2025 Patient encounter procedure 05/14/2025 11:40 AM EDT Office Visit [facility] [address] [place] [address] Dr [address] [place] [address] Ynes Rodriguez, RECYCLING MANAGER - FARMWORK[employer]IMAL [address] [place] [address] 6 month f/u [facility] Comment on above: 6 month f/u Start: 04-14-2025 End: 04-14-2025 Patient encounter procedure 04/14/2025 3:20 PM EDT Routine [facility] [address] [place] [address] [place] [id number] Regina Barton PA [address] [place] [address] DIANE SANTO Start: 04-03-2025 End: 04-03-2025 Patient encounter procedure 04/03/2025 3:30 PM EDT Routine DIANE SANTO [address] [id number] Regina Barton, PA [address] [place] [address] DIANE SANTO Start: 04-03-2025 End: 04-03-2026 CBC W Auto Differential panel - Blood CBC and differential Lab Routine Dizziness Anemia, unspecified type Expected: 04/03/2025 (Approximate), Expires: 04/03/2026 [facility] Comment on above: Expected: 04/03/2025 (Approximate), Expires: 04/03/2026 Start: 04-03-2025 End: 10-01-2025 US biophysical profile w non stress test US biophysical profile w non stress test Imaging Routine 28 weeks gestation of ([facility]) Third trimester ([facility]) Gestational diabetes mellitus (GDM), antepartum, gestational diabetes method of control unspecified ([facility]) History of miscarriage Expected: 04/03/2025 (Approximate), Expires: 10/01/2025 [facility] Comment on above: Expected: 04/03/2025 (Approximate), Expires: 10/01/2025 Start: 04-03-2025 End: 08-03-2025 US for US OB follow up transabdominal approach Imaging Routine 28 weeks gestation of ([facility]) Third trimester ([facility]) Gestational diabetes mellitus (GDM), antepartum, gestational diabetes method of control unspecified ([facility]) History of miscarriage Expected: 04/03/2025, Expires: 08/03/2025 [facility] Work Phone: Comment on above: Expected: 04/03/2025 , Expires: 08/03/2025 Start: 03-24-2025 Influenza vaccination N [facility] Start: 02-21-2025 Influenza vaccination Flu vacc ine (Season Ended) Anthony Odonnell [facility] Start: 02-11-2025 End: 02-11-2025 Patient encounter procedure 02/11/2025 2:10 PM EDT Routine [facility] [address] [facility] [place] [address] Mukul Foy, DO [address] [place] [address] [facility] Start: 02-11-2025 End: 02-11-2025 Professional / ancillary services management 02/11/2025 1:00 PM EDT Ancillary Procedure [facility] [address] [place] [id number] [facility] Start: 01-15-2025 End: 01-15-2025 Patient encounter procedure 01/15/2025 3:50 PM EDT Routine [facility] [address] [place] [address] Mukul Foy, DO [address] [place] [address] [facility] Start: 01-15-2025 End: 07-17-2025 Alpha fetoprotein, maternal Alpha fetoprotein, maternal Lab Routine Second trimester ([facility]) 17 weeks gestation of ([facility]) Expected: 01/15/2025 (Approximate), Expires: 07/17/2025 [facility] Comment on above: Expected: 01/15/2025 (Approximate), Expires: 07/17/2025 Start: 01-15-2025 End: 04-17-2025 US for US OB 14+ weeks anatomy scan Imaging Routine Screening, , for anatomic survey ([facility]) Expected: 01/15/2025, Expires: 04/17/2025 [facility] Comment on above: Expected: 01/15/2025 , Expires: 04/17/2025 Start: 12-18-2024 End: 12-18-2024 Patient encounter procedure 12/18/2024 3:40 PM EDT Routine [facility] [address] [facility] [place] [id number] Mukul Foy, DO [address] [place] [address] [facility] Start: 12-18-2024 End: 12-18-2025 CBC panel - Blood by Automated count CBC Lab Routine Diabetes mellitus screening Expected: 12/18/2024 (Approximate), Expires: 12/18/2025 [facility] Work Phone: Comment on above: Expected: 12/18/2024 (Approximate), Expires: 12/18/2025 Start: 12-18-2024 End: 12-18-2025 Measurement of glucose 1 hour after glucose challenge for glucose tolerance test Glucose tolerance, 1 hour Lab Routine Diabetes mellitus screening Expected: 12/18/2024 (Approximate), Expires: 12/18/2025 [facility] Comment on above: Expected: 12/18/2024 (Approximate), Expires: 12/18/2025 Start: 12-18-2024 End: 03-20-2025 US Pelvis transvaginal US OB transvaginal Imaging Routine Subchorionic hematoma in first trimester, single or unspecified fetus Expected: 12/18/2024, Expires: 03/20/2025 [facility] Work Phone: Comment on above: Expected: 12/18/2024 , Expires: 03/20/2025 Start: 11-14-2024 End: 11-14-2025 ABO/Rh ABO/Rh Lab Routine Missed menses , unspecified gestational age Expected: 11/14/2024 (Approximate), Expires: 11/14/2025 [facility] Comment on above: Expected: 11/14/2024 (Approximate), Expires: 11/14/2025 Start: 11-14-2024 End: 11-14-2025 Blood type and Indirect antibody screen panel - Blood Type and screen Lab Routine Missed menses , unspecified gestational age Expected: 11/14/2024 (Approximate), Expires: 11/14/2025 [facility] Comment on above: Expected: 11/14/2024 (Approximate), Expires: 11/14/2025 Start: 11-14-2024 End: 11-14-2025 Drugs of abuse panel - Urine by Screen method Rapid drug screen, urine Lab Routine , unspecified gestational age Encounter for supervision of normal first in first trimester Expected: 11/14/2024 (Approximate), Expires: 11/14/2025 [facility] Comment on above: Expected: 11/14/2024 (Approximate), Expires: 11/14/2025 Start: 11-06-2024 End: 02-05-2025 US Pelvis transvaginal US OB transvaginal Imaging Routine Missed menses Expected: 11/06/2024, Expires: 02/05/2025 [facility] Work Phone: Comment on above: Expected: 11/06/2024 , Expires: 02/05/2025 Start: 10-16-2024 End: 10-16-2024 Patient encounter procedure 10/16/2024 1:40 PM EDT Office Visit [facility] [address] [place] [address] [address] [place] [address] Ynes Rodriguez, RECYCLING MANAGER - [employer]ARMWORK[employer]IMAL [address] [place] [address] Dr [address] [place] [address] Wellness [facility] Comment on above: Wellness Start: 08-03-2024 Depression Screen Depression Screen [facility] Start: 06-04-2024 End: 06-04-2024 Patient encounter procedure 06/04/2024 11:45 AM EST Office Visit [facility] [address] [place] [address] [address] [place] [address] Jose Cruz Raza MD [address] [place] [address] [address] [place], [place] [address] wt management [facility] Comment on above: wt management Start: 05-22-2024 End: 05-22-2024 Patient encounter procedure 05/22/2024 11:00 AM EDT Office Visit [facility] [address] [place] [address] Ynes Rodriguez, RECYCLING MANAGER - FARMWORKER ANIMAL [address] [place] [address] LFT + HLD f/u(RS 10/17/23 appt) [facility] Comment on above: LFT + HLD f/u(RS 09/22 01/14 appt) Start: 03-24-2024 COVID-19 Vaccine ( season) COVID-19 Vaccine ( season) [facility] Start: 03-24-2024 COVID-19 Vaccine ( season) COVID-19 Vaccine () [facility] Start: 03-24-2024 Influenza vaccination Influenza Vacc ine (#1) [facility] Start: 02-22-2024 Influenza vaccination Flu vaccine (# 1) [facility] Start: 03-03-2023 Screening for malign ant neoplasm of cervix [facility] Start: 11-09-2022 Depression Screen Depression Screen [facility] Start: 07-11-2022 End: 07-11-2022 Patient encounter procedure 07/11/2022 Office Visit Primary Care Ynes Rodriguez, RECYCLING MANAGER - FARMWORKER ANIMAL [address] [place] [address] [facility] Start: 05-19-2022 End: 05-19-2022 Patient encounter procedure 05/19/2022 Office Visit Obstetrics and Gynecology Berto Live, JSOE J - CNM [address] [place], [place] [id number] [facility] OB[facility]ECOLOGY [facility] Start: 03-18-2022 End: 03-18-2022 Patient encounter procedure 03/18/2022 Office Visit Family Medicine Ynes Rodriguez, RECYCLING MANAGER - FARMWORKER ANIMAL [address] [address] [facility] Start: 03-12-2022 Hepatitis C screening Hepatitis C sc [facility] Comment on above: Postponed from 09/09 (Patient Refused) Start: 02-21-2022 Influenza vaccination Flu vaccine (# 1) [facility] Start: 11-19-2021 Screening for Chlamy carlton trachomatis [facility] Start: 09-24-2021 Influenza vaccination Flu vacc ine (Season Ended) [facility] Work Phone: Comment on above: Postponed from 03/24 (Patient Refused) Start: 08-17-2021 Depression Monitoring Depression [facility] Start: 06-30-2021 COVID-19 Vaccine (3 - Booster for Pfizer series) COVID-19 Vaccine (3 - Booster for Pfizer series) [facility] Start: 06-19-2021 DTaP/Tdap/Td vaccine (7 - Td or Tdap) DTaP/Tdap/Td vaccine (7 - Td or Tdap) [facility] Start: 06-19-2021 DTaP/Tdap/Td vaccine (7 - Td) DTaP/Tdap/Td vaccine (7 - Td) [place], [place] Start: 03-24-2021 Influenza vaccination Flu vaccine (# 1) [facility] Start: 03-03-2021 Screening for Chlamy carlton trachomatis Chlamydia screen [place], [place] Start: 02-23-2021 COVID-19 Vaccine (3 - Booster for Pfizer series) COVID-19 Vaccine (3 - Booster for Pfizer series) [facility] Start: 02-09-2021 End: 02-09-2021 Patient encounter procedure 02/09/2021 Office Visit Family Medicine Ynes Rodriguez, RECYCLING MANAGER - FARMWORKER ANIMAL [address] [address] [phone] [facility] Start: 11-30-2020 End: 11-30-2020 Patient encounter procedure 11/30/2020 Office Visit Urology Chris Moe MD [address] [facility], [address] [place] [address] [phone] [facility] UROLOGY [facility] Start: 05-28-2020 End: 05-28-2020 Telemedicine 05/28/2020 Telemedicine Family Medicine Ynes Rodriguez, RECYCLING MANAGER - FARMWORKER ANIMAL [address] [facility] [address] [place], [place] [id number] [facility] Start: 03-24-2020 Influenza vaccination Flu vaccine (# 1) [place], [place] Start: 02-22-2020 Screening for Chlamy carlton trachomatis Chlamydia screen [place], [place] Start: 2019 Screening for malign ant neoplasm of cervix Cervical cancer screen [place], [place] Start: 2016 Hepatitis C screening Hepatitis C [facility] Start: 2014 COVID-19 Vaccine (1) COVID-19 Vaccin e (1) [facility] [employer] Phone: Start: 2013 HIV screening HIV screen [place], [place] Start: 1998 Hepatitis C screening [facility] Phone: Bacteria identified in Urine by Culture Urine culture Microbiology Routine Missed menses Ordered: 11/14/2024 [facility] Comment on above: Ordered: 11/14/2024 Bacteria identified in Urine by Culture Urine culture Microbiology Routine UTI symptoms Ordered: 04/03/2025 [facility] Comment on above: Ordered: 04/03/2025 End: 03-03-2020 C.trachomatis N.gonorrhoeae DNA, Thin Prep C.trachomatis N.gonorrhoeae DNA, Thin Prep Microbiology Routine Encounter for annual routine gynecological examination 1 Occurrences starting 03/03/2020 until 03/03/2020 [place] Comment on above: 1 Occurrences starti ng 03/03/2020 until 03/03/2020 C.trachomatis N.gonorrhoeae DNA, Thin Prep C.trachomatis N.gonorrhoeae DNA, Thin Prep Microbiology Routine Encounter for annual routine gynecological examination 03/03/2020 5:08 PM EDT [facility] Different ial panel - Blood CBC and differential Lab Routine Missed menses , unspecified gestational age Ordered: 11/14/2024 [facility] Comment on above: Ordered: 11/14/2024 CHLAMYDIA TRACHOMATI S (GENITO/STI) CHLAMYDIA TRACHOMATIS (GENITO/STI) Lab Routine STD exposure Ordered: 01/15/2025 [facility] Comment on above: Ordered: 01/15/2025 Cytology Cervical or vaginal smear or scraping study Pap Smear Pathology and Cytology Routine Well woman exam with routine gynecological exam Ordered: 07/15/2024 [facility] Work Phone: Comment on above: Ordered: 07/15/2024 End: 03-03-2020 Cytopathology procedure, preparation of smear, genital source PAP SMEAR Lab Routine Screening for cervical cancer 1 Occurrences starting 03/03/2020 until 03/03/2020 [facility] Comment on above: 1 Occurrences starti ng 03/03/2020 until 03/03/2020 Hemoglobin A1c/Hemoglobin.total in Blood Hemoglobin A1c Lab Routine Missed menses , unspecified gestational age Ordered: 11/14/2024 [facility] Comment on above: Ordered: 11/14/2024 Hepatitis B virus surface Ag [Presence] in Serum or Plasma by Immunoassay Hepatitis B surface antigen Lab Routine Missed menses , unspecified gestational age Ordered: 11/14/2024 [facility] Comment on above: Ordered: 11/14/2024 Hepatitis C virus Ab [Presence] in Serum or Plasma by Immunoassay Hepatitis C antibody Lab Routine Missed menses , unspecified gestational age Ordered: 11/14/2024 [facility] Comment on above: Ordered: 11/14/2024 HIV-1/HIV-2 antigen/antibody combination immunoassay HIV-1 and HIV-2 antibodies Lab Routine Missed menses , unspecified gestational age Ordered: 11/14/2024 [facility] Comment on above: Ordered: 11/14/2024 Neisseria gonorrhoea e DNA [Presence] in Unspecified specimen by ANISA with probe detection Neisseria gonorrhea DNA probe, direct Lab Routine STD exposure Ordered: 01/15/2025 [facility] Comment on above: Ordered: 01/15/2025 Reagin Ab [Presence] in Serum by RPR RPR Lab Routine Missed menses , unspecified gestational age Ordered: 11/14/2024 [facility] Comment on above: Ordered: 11/14/2024 Rubella antibody, IgG Rubella an tibody, IgG Lab Routine Missed menses , unspecified gestational age Ordered: 11/14/2024 [facility] Comment on above: Ordered: 11/14/2024 SURESWAB(R) ADVANCED VAGINITIS PLUS, TMA SURESWAB(R) ADVANCED VAGINITIS PLUS, TMA Pathology and Cytology Routine Vaginal discharge Ordered: 01/15/2025 [facility] Work Phone: Comment on above: Ordered: 01/15/2025 US Pelvis transvaginal US OB tra nsvaginal Imaging Routine Missed menses 11/14/2024 2:38 PM EDT [facility] End: 12-20-2024 uterus 14 wk transabdl 07/24 gestat Anthony Belle [facility] Work Phone: Comment on above: 1 Occurrences starti ng 12/20/2024 until 12/20/2024 Immunizations Immunization Date Immunization Notes Care Provider Lora canela 12-29-2020 COVID-19, Pfizer Pur ple top, DILUTE for use, 12+ yrs, 30mcg/0.3mL dose Ynes Rodriguez [employer] Work Phone: [facility] Work Phone: 12-07-2020 COVID-19, Pfizer Pur ple top, DILUTE for use, 12+ yrs, 30mcg/0.3mL dose Ynes Rodriguez RECYCLING MANAGER - [employer] Work Phone: [facility] 09-20-2017 human papilloma viru s vaccine, quadrivalent [facility], [place] 05-01-2017 human papilloma viru s vaccine, quadrivalent [facility], [place] 02-24-2017 human papilloma viru s vaccine, quadrivalent [facility], [place] 03-11-2016 meningococcal polysaccharide (groups A, C, Y and W-135) diphtheria toxoid conjugate vaccine (MCV4P) [facility], [place] 2014 meningococcal ACWY vaccine, unspecified formulation [facility], [place] 08-19-2011 Hepatitis A Ped/Adol (Vaqta) [facility], [place] 08-19-2011 hepatitis A vaccine, pediatric/adolescent dosage, 2 dose schedule Ynes Rodriguez RECYCLING MANAGER - [employer] Work Phone: [facility] Work Phone: 06-19-2011 tetanus toxoid, redu saundra diphtheria toxoid, and acellular pertussis vaccine, adsorbed [facility], [place] 02-09-2011 Hepatitis A Ped/Adol (Vaqta) [facility] 02-09-2011 hepatitis A vaccine, pediatric/adolescent dosage, 2 dose schedule Ynes Fede RECYCLING MANAGER - [employer] Work Phone: [facility] Work Phone: 02-09-2011 varicella virus vaccine [facility], [place] 01-12-2011 meningococcal polysaccharide (groups A, C, Y and W-135) diphtheria toxoid conjugate vaccine (MCV4P) [facility], [place] 11-20-2003 diphtheria, tetanus toxoids and acellular pertussis vaccine [facility], [place] 11-20-2003 measles, mumps and rubella virus vaccine [facility] 11-20-2003 poliovirus vaccine, inactivated [facility] 03-13-2000 diphtheria, tetanus toxoids and acellular pertussis vaccine [facility] 03-13-2000 haemophilus influenz ae type b vaccine, PRP-T conjugate [facility] 03-13-2000 poliovirus vaccine, inactivated [facility] 12-22-1999 measles, mumps and rubella virus vaccine [facility] 12-22-1999 varicella virus vaccine [facility] [place], [place] 06-09-1999 hepatitis B vaccine, pediatric or pediatric/adolescent dosage [facility] 03-12-1999 diphtheria, tetanus toxoids and acellular pertussis vaccine [facility] 03-12-1999 haemophilus influenz ae type b vaccine, PRP-T conjugate [facility] 01-18-1999 diphtheria, tetanus toxoids and acellular pertussis vaccine [facility] 01-18-1999 haemophilus influenz ae type b vaccine, PRP-T conjugate [facility] 01-18-1999 poliovirus vaccine, inactivated [facility] 1998 haemophilus influenz ae type b vaccine, PRP-T conjugate [facility] 1998 poliovirus vaccine, inactivated [facility] 1998 diphtheria, tetanus toxoids and acellular pertussis vaccine [facility] 1998 hepatitis B vaccine, pediatric or pediatric/adolescent dosage [facility] 1998 hepatitis B vaccine, pediatric or pediatric/adolescent dosage [facility] Payers Date Payer Category Payer Unknown [facility] [id number] 2022-Present [address] [place] [id number] [employer] [id number] 2022 Private Health Insurance [employer] [id number]. [id number] 1998 Unknown [id number] 2.16.840.1.205276.3.579.2. 900 1998 Unknown [id number] 2.16.840.1.498650.3.579.2. 900 1998 Unknown [id number] 2.16.840.1.143694.3.579.2. 900 1998 Unknown [id number] 2.16.840.1.955608.3.579.2. 900 1998 Unknown [id number] 2.16.840.1.670185.3.579.2. 593 1998 Unknown [id number] 2.16.840.1.153356.3.579.2. 593 1998 Unknown [id number] 2.16.840.1.384483.3.579.2. 593 1998 Unknown [id number] 2.16.840.1.338839.3.579.2. 593 1998 Unknown [id number] 2.16.840.1.411667.3.579.2. 593 1998 Unknown [id number] 2.16.840.1.271654.3.579.2. 593 1998 Unknown [id number] 2.16.840.1.387977.3.579.2. 593 1998 Unknown [id number] 2.16.840.1.648028.3.579.2. 593 1998 Unknown [id number] 2.16.840.1.970541.3.579.2. 593 1998 Unknown [id number] 2.16.840.1.940574.3.579.2. 593 1998 Unknown [id number] 2.16.840.1.943878.3.579.2. 593 1998 Unknown [id number] 2.16.840.1.328576.3.579.2. 593 1998 Unknown [id number] 2.16.840.1.386574.3.579.2. 593 1998 Unknown [id number] 2.16.840.1.146297.3.579.2. 593 1998 Unknown [id number] 2.16.840.1.816229.3.579.2. 173 1998 Unknown [id number] 2.16.840.1.002224.3.579.2. 173 1998 Unknown [id number] 2.16.840.1.283958.3.579.2. 173 1998 Unknown [id number] 2.16.840.1.147398.3.579.2. 173 1998 Unknown [id number] 2.16.840.1.938997.3.579.2. 173 1998 Unknown [id number] 2.16.840.1.373492.3.579.2. 1259 1998 Unknown [id number] 2.16.840.1.798699.3.579.2. 1259 1998 Unknown [id number] 2.16.840.1.088270.3.579.2. 1259 1998 Unknown [id number] 2.16.840.1.775666.3.579.2. 1259 1998 Unknown [id number] 2.16.840.1.664417.3.579.2. 1259 1998 Unknown [id number] 2.16.840.1.360453.3.579.2. 1259 1998 Unknown [id number] 2.16.840.1.028265.3.579.2. 1259 1998 Unknown [id number] 2.16.840.1.238080.3.579.2. 1259 1998 Unknown [id number] 2.16.840.1.616564.3.579.2. 1259 1959 Self-pay 1959 Unknown [id number] 1.2.840.313560.1.13.239.2. 7.3.996748.315 1959 Unknown [id number] 1959 Unknown [id number] Unknown [id number] 2.16.840.1.180771.3.579.2. 593 Social History Date Type Detail Facility Start: 03-03-2020 End: 12-31-2022 Tobacco smoking status NHIS Never smoker [place] Start: 03-03-2020 End: 12-31-2022 Tobacco use and exposure Never used [place] Start: 03-03-2020 End: 05-12-2021 Alcohol intake Current drinker of alcohol (finding) [place] Start: 06-19-2017 Alcohol Comment social [place], [place] Start: 1998 Sex Assigned At Not on file [place] Start: 05-01-2020 End: 03-08-2022 History SDOH Financial 5 [place] Start: 05-01-2020 End: 03-08-2022 History SDOH Food Worry 1 [place] Start: 05-01-2020 History SDOH Transpo rt Med 2 [place] Exposure to SARS-CoV -2 (event) Not sure [facility] Start: 05-01-2024 End: 11-12-2024 Alcoholic beverage intake Ex-drinker (finding) [employer] Start: 05-01-2024 End: 11-14-2024 History of Social function [facility] [employer] Start: 05-01-2024 End: 11-14-2024 [facility] How hard is it for y ou to pay for the very basics like food, housing, medical care, and heating Not hard at all [facility] [employer] (I/We) worried wheth er (my/our) food would run out before (I/we) got money to buy more. Never true [facility] [employer] Start: 1998 Sex assigned at Female [facility] [employer] Start: 05-20-2024 Gender identity Identifies as female gender (finding) [facility] [employer] Start: 07-05-2023 End: 04-03-2025 Alcoholic beverage intake Lifetime non-drinker (finding) [facility] Start: 09-30-2024 [facility] Has the electric, [employer], oil, or water [employer] threatened to shut off services in your home in past 12Mo No [facility] [employer] Start: 09-02-2012 Sex Female (finding) [facility] [employer] OTR Medical Equipment Procedure Code Equipment Code Equipment Origin al Text Equipment Identifier Dates Use as instructed [id number] Start: 01-15-2025 End: 01-15-2026 Goals Date Patient Goal Desired Activity /State Personal health goal Clinical Notes 03-20-2023 to 04-03-2025 JOSEPH Bowie - 04/03/2025 3:30 PM EDLuis Manuel Foy DO - 03/12/2025 3:50 PM EDTTiffany Li NP - 02/26/2025 3:30 PM JOSEPH Stevens - 02/11/2025 2:10 PM JOSEPH Stevens - 12/18/2024 3:40 PM EDT Note Date & Type Note Facility 04-03-2025 History of Present illness Narrative Reason for Appointment: Patient ID: Vinny Downey is a 24 y.o. female who presents for Routine Visit Patient presents today for Return OB appointment. MEDICATIONS Current Outpatient Medications Medication Instructions cephalexin (KEFLEX) 500 mg, Oral, 3 times daily glucose blood test strip Use as instructed iron polysaccharides (PROFE) 391.3 mg, Oral, Daily metFORMIN XR (GLUCOPHAGE-XR) 1,000 mg, Oral, Daily with evening meal metoclopramide (REGLAN) 10 mg, Oral, 3 times daily before meals, Take 1 tablet by mouth 30 minutes prior to meals 3 times daily as needed for nausea. pantoprazole (PROTONIX) 40 mg, Oral, Daily before breakfast, Do not crush, chew, or split. 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 Other fatigue 05/02/2020 Frequent UTI 11/30/2020 23 weeks gestation of ([facility]) 02/26/2025 Elevated blood sugar level 02/26/2025 Resolved Ambulatory Problems Diagnosis Date Noted Missed period 01/13/2023 Past Medical History: Diagnosis Date GDM (gestational diabetes mellitus) ([facility]) HISTORY PAST MEDICAL HISTORY SOCIAL HISTORY Past Medical History: Diagnosis Date GDM (gestational diabetes mellitus) ([facility]) Social History Tobacco Use Smoking status: Never Smokeless tobacco: Never Substance Use Topics Alcohol use: Never Drug use: Never FAMILY HISTORY No family history on file. SURGICAL HISTORY Past Surgical History: Procedure Laterality Date APPENDECTOMY SECTION, LOW TRANSVERSE 01/19/2023 DILATION AND CURETTAGE OF UTERUS REVIEW OF SYSTEMS Review of Systems: Review of Systems Constitutional: Negative. HENT: Negative. Eyes: Negative. Respiratory: Negative. Cardiovascular: Negative. Gastrointestinal: Negative. Genitourinary: Negative. Musculoskeletal: Negative. Skin: Negative. Neurological: Negative. All other systems reviewed and are negative. Hematological: Negative. Endocrine: Negative. Allergic/Immunologic: Negative. OBJECTIVE Objective: Physical Exam Constitutional: Appearance: Normal appearance. She is normal weight. HENT: Head: Normocephalic. Cardiovascular: Rate and Rhythm: Normal rate. Pulses: Normal pulses. Pulmonary: Effort: Pulmonary effort is normal. Breath sounds: Normal breath sounds. Abdominal: Palpations: Abdomen is soft. Musculoskeletal: General: Normal range of motion. Neurological: General: No focal deficit present. Mental Status: She is alert and oriented to person, place, and time. Psychiatric: Mood and Affect: Mood normal. Behavior: Behavior normal. Thought Content: Thought content normal. Judgment: Judgment normal. Vitals and nursing note reviewed. Vitals: Estimated body mass index is 36.61 kg/m as calculated from the following: Height as of 01/30/23: 5' 6 . Weight as of this encounter: 226 lb 12.8 oz. BP: 120/70 Patient's last menstrual period was 09/16/2024. ASSESSMENT & PLAN ICD-10-CM 1. 28 weeks gestation of ([facility]) Z3A.28 POCT urinalysis dipstick manually resulted US OB follow up transabdominal approach US biophysical profile w non stress test 2. Third trimester ([facility]) Z34.93 POCT urinalysis dipstick manually resulted US OB follow up transabdominal approach US biophysical profile w non stress test 3. Dizziness R42 CBC and differential CBC and differential 4. Gestational diabetes mellitus (GDM), antepartum, gestational diabetes method of control unspecified ([facility]) O24.419 US OB follow up transabdominal approach US biophysical profile w non stress test 5. History of miscarriage Z87.59 US OB follow up transabdominal approach US biophysical profile w non stress test 6. Anemia, unspecified type D64.9 CBC and differential CBC and differential 7. UTI symptoms R39.9 Urine culture cephalexin (Keflex) 500 MG capsule Return OB: Patient presents today for a routine obstetrics appointment. Patient is currently 28w3d . Patient states she is doing well but has complaints of being tired due to current . Patient has verbalizes frequent movement. labor precautions was discussed/given and patient was instructed to perform kick counts three times a day. Orders Placed This Encounter Procedures Urine culture US OB follow up transabdominal approach US biophysical profile w non stress test CBC and differential POCT urinalysis dipstick manually resulted Follow Up: Patient is to return to office in 2 week for routine OB appointment. Documented by JOSEPH Bowie on behalf of: JOSEPH Bowie documented in this encounter [facility] 03-12-2025 History of Present illness Narrative Reason for Appointment: Patient ID: Vinny Downey is a 24 y.o. female who presents for No chief complaint on file. Patient presents today for Acute Visit. Current Medications: has a current medication list which includes the following prescription(s): glucose blood, metformin xr, pantoprazole, sertraline, and metoclopramide. 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 Social History Tobacco Use Smoking status: Never Smokeless tobacco: Never Substance Use Topics Alcohol use: Never Drug use: Never Past Surgical History: Procedure Laterality Date APPENDECTOMY SECTION, LOW TRANSVERSE 01/19/2023 DILATION AND CURETTAGE OF UTERUS No Known Allergies Review of Systems: Review of Systems Constitutional: Negative. HENT: Negative. Eyes: Negative. Respiratory: Negative. Cardiovascular: Negative. Gastrointestinal: Negative. Genitourinary: Negative. Musculoskeletal: Negative. Skin: Negative. Neurological: Negative. All other systems reviewed and are negative. Hematological: Negative. Endocrine: Negative. Allergic/Immunologic: Negative. Objective Physical Exam Constitutional: Appearance: Normal appearance. She is well-developed. Cardiovascular: Rate and Rhythm: Normal rate and regular rhythm. Pulmonary: Effort: Pulmonary effort is normal. Breath sounds: Normal breath sounds. Abdominal: General: Bowel sounds are normal. There is no distension. Palpations: Abdomen is soft. Tenderness: There is no abdominal tenderness. There is no guarding or rebound. Musculoskeletal: General: No swelling. Normal range of motion. Right lower leg: No edema. Left lower leg: No edema. Neurological: Mental Status: She is alert and oriented to person, place, and time. Skin: General: Skin is warm and dry. Psychiatric: Mood and Affect: Mood normal. Behavior: Behavior normal. Vitals and nursing note reviewed. Exam conducted with a worm grower present. Vitals: Estimated body mass index is 36.12 kg/m as calculated from the following: Height as of 01/30/23: 5' 6 . Weight as of this encounter: 223 lb 12.8 oz. BP: 100/70 Patient's last menstrual period was 09/16/2024. Assessment/Plan Encounter Diagnosis: ICD-10-CM 1. 25 weeks gestation of ([facility]) Z3A.25 POCT urinalysis dipstick manually resulted 2. Second trimester ([facility]) Z34.92 POCT urinalysis dipstick manually resulted 3. Gastroesophageal reflux disease without esophagitis K21.9 metoclopramide (Reglan) 10 MG tablet Return OB: Patient presents today for a routine obstetrics appointment. Patient is currently 26w1d . Patient states she is doing well but has complaints of being tired due to current . Patient has verbalizes frequent movement. labor precautions was discussed/given and patient was instructed to perform kick counts three times a day. Orders Placed This Encounter Procedures POCT urinalysis dipstick manually resulted Follow Up: Patient is to return to office in 2 week for routine OB appointment. Documented by Mukul Foy DO on behalf of: Mukul Foy DO documented in this encounter [facility] 02-26-2025 History of Present illness Narrative Reason for Appointment: Patient ID: Vinny Downey is a 24 y.o. female who presents for No chief complaint on file. Patient presents today for Return OB appointment. MEDICATIONS Current Outpatient Medications Medication Instructions glucose blood test strip Use as instructed metFORMIN XR (GLUCOPHAGE-XR) 1,000 mg, Oral, Daily with evening meal pantoprazole (PROTONIX) 40 mg, Oral, Daily before breakfast, Do not crush, chew, or split. 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 Other fatigue 05/02/2020 Frequent UTI 11/30/2020 23 weeks gestation of ([facility]) 02/26/2025 Elevated blood sugar level 02/26/2025 Resolved Ambulatory Problems Diagnosis Date Noted Missed period 01/13/2023 Past Medical History: Diagnosis Date GDM (gestational diabetes mellitus) ([facility]) HISTORY PAST MEDICAL HISTORY SOCIAL HISTORY Past Medical History: Diagnosis Date GDM (gestational diabetes mellitus) ([facility]) Social History Tobacco Use Smoking status: Never Smokeless tobacco: Never Substance Use Topics Alcohol use: Never Drug use: Never FAMILY HISTORY No family history on file. SURGICAL HISTORY Past Surgical History: Procedure Laterality Date APPENDECTOMY SECTION, LOW TRANSVERSE 01/19/2023 DILATION AND CURETTAGE OF UTERUS REVIEW OF SYSTEMS Review of Systems: Review of Systems Constitutional: Negative. HENT: Negative. Eyes: Negative. Respiratory: Negative. Cardiovascular: Negative. Gastrointestinal: Negative. Genitourinary: Negative. Musculoskeletal: Negative. Skin: Negative. Neurological: Negative. All other systems reviewed and are negative. Hematological: Negative. Endocrine: Negative. Allergic/Immunologic: Negative. OBJECTIVE Objective: Physical Exam Constitutional: Appearance: Normal appearance. She is well-developed. Cardiovascular: Rate and Rhythm: Normal rate and regular rhythm. Pulmonary: Effort: Pulmonary effort is normal. Breath sounds: Normal breath sounds. Abdominal: General: Bowel sounds are normal. There is no distension. Palpations: Abdomen is soft. Tenderness: There is no abdominal tenderness. There is no guarding or rebound. Musculoskeletal: General: No swelling. Normal range of motion. Right lower leg: No edema. Left lower leg: No edema. Neurological: Mental Status: She is alert and oriented to person, place, and time. Skin: General: Skin is warm and dry. Psychiatric: Mood and Affect: Mood normal. Behavior: Behavior normal. Vitals and nursing note reviewed. Exam conducted with a worm grower present. Vitals: Estimated body mass index is 35.96 kg/m as calculated from the following: Height as of 01/30/23: 5' 6 . Weight as of this encounter: 222 lb 12.8 oz. BP: 110/70 Patient's last menstrual period was 09/16/2024. ASSESSMENT & PLAN ICD-10-CM 1. 23 weeks gestation of ([facility]) Z3A.23 POCT urinalysis dipstick manually resulted pantoprazole (Protonix) 40 MG EC tablet 2. Elevated blood sugar level R73.9 POCT urinalysis dipstick manually resulted pantoprazole (Protonix) 40 MG EC tablet 3. Gastroesophageal reflux disease without esophagitis K21.9 pantoprazole (Protonix) 40 MG EC tablet Return OB: Patient presents today for a routine obstetrics appointment. Patient is currently 23w2d . Patient states she is doing well but has complaints of being tired due to current . Patient has verbalizes frequent movement. labor precautions was discussed/given and patient was instructed to perform kick counts three times a day. Orders Placed This Encounter Procedures POCT urinalysis dipstick manually resulted Follow Up: Patient is to return to office in 2 week for routine OB appointment. Complaints of acid reflux worse at night. Review of FSBS and doing well. Documented by Tiffany Li NP on behalf of: Mukul Foy DO documented in this encounter [facility] 02-11-2025 History of Present illness Narrative Reason for Appointment: Patient ID: Vinny Downey is a 24 y.o. female who presents for Routine Visit Patient presents today for Return OB appointment. MEDICATIONS Current Outpatient Medications Medication Instructions glucose blood test strip Use as instructed metFORMIN XR (GLUCOPHAGE-XR) 1,000 mg, Oral, Daily with evening meal omeprazole (PRILOSEC) 20 mg, Oral, Daily before breakfast, Do not crush or chew. 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 SURGICAL HISTORY Past Surgical History: Procedure Laterality Date APPENDECTOMY SECTION, LOW TRANSVERSE 01/19/2023 DILATION AND CURETTAGE OF UTERUS REVIEW OF SYSTEMS Review of Systems: Review of Systems Constitutional: Negative. HENT: Negative. Eyes: Negative. Respiratory: Negative. Cardiovascular: Negative. Gastrointestinal: Negative. Genitourinary: Negative. Musculoskeletal: Negative. Skin: Negative. Neurological: Negative. All other systems reviewed and are negative. Hematological: Negative. Endocrine: Negative. Allergic/Immunologic: Negative. OBJECTIVE Objective: Physical Exam Constitutional: Appearance: Normal appearance. She is normal weight. HENT: Head: Normocephalic. Cardiovascular: Rate and Rhythm: Normal rate. Pulses: Normal pulses. Pulmonary: Effort: Pulmonary effort is normal. Breath sounds: Normal breath sounds. Abdominal: Palpations: Abdomen is soft. Musculoskeletal: General: Normal range of motion. Neurological: General: No focal deficit present. Mental Status: She is alert and oriented to person, place, and time. Psychiatric: Mood and Affect: Mood normal. Behavior: Behavior normal. Thought Content: Thought content normal. Judgment: Judgment normal. Vitals and nursing note reviewed. Vitals: Estimated body mass index is 34.99 kg/m as calculated from the following: Height as of 01/30/23: 5' 6 . Weight as of this encounter: 216 lb 12.8 oz. BP: 116/76 Patient's last menstrual period was 09/16/2024. ASSESSMENT & PLAN ICD-10-CM 1. Second trimester ([facility]) Z34.92 metFORMIN XR (Glucophage-XR) 500 MG 24 hr tablet POCT urinalysis dipstick manually resulted 2. 20 weeks gestation of ([facility]) Z3A.20 metFORMIN XR (Glucophage-XR) 500 MG 24 hr tablet POCT urinalysis dipstick manually resulted Return OB: Patient presents today for a routine obstetrics appointment. Patient is currently 21w1d . Patient states she is doing well but has complaints of being tired due to current . Patient has verbalizes frequent movement. Orders Placed This Encounter Procedures POCT urinalysis dipstick manually resulted Follow Up: Patient is to return to office in 4week for routine OB appointment. Documented by JOSEPH Bowie on behalf of: Mukul Foy DO documented in this encounter [facility] 01-15-2025 History of Present illness Narrative Reason for Appointment: Patient ID: Vinny Downey is a 24 y.o. female who presents for Routine Visit and STI Screening Patient presents today for Return OB appointment. MEDICATIONS Current Outpatient Medications Medication Instructions glucose blood test strip Use as instructed omeprazole (PRILOSEC) 20 mg, Oral, Daily before breakfast, Do not crush or chew. 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 SURGICAL HISTORY Past Surgical History: Procedure Laterality Date APPENDECTOMY SECTION, LOW TRANSVERSE 01/19/2023 DILATION AND CURETTAGE OF UTERUS REVIEW OF SYSTEMS Review of Systems: Review of Systems Constitutional: Negative. HENT: Negative. Eyes: Negative. Respiratory: Negative. Cardiovascular: Negative. Gastrointestinal: Negative. Genitourinary: Negative. Musculoskeletal: Negative. Skin: Negative. Neurological: Negative. All other systems reviewed and are negative. Hematological: Negative. Endocrine: Negative. Allergic/Immunologic: Negative. OBJECTIVE Objective: Physical Exam Constitutional: Appearance: Normal appearance. She is well-developed. Genitourinary: Vulva normal. Cardiovascular: Rate and Rhythm: Normal rate and regular rhythm. Pulmonary: Effort: Pulmonary effort is normal. Breath sounds: Normal breath sounds. Abdominal: General: Bowel sounds are normal. There is no distension. Palpations: Abdomen is soft. Tenderness: There is no abdominal tenderness. There is no guarding or rebound. Musculoskeletal: General: No swelling. Normal range of motion. Right lower leg: No edema. Left lower leg: No edema. Neurological: Mental Status: She is alert and oriented to person, place, and time. Skin: General: Skin is warm and dry. Psychiatric: Mood and Affect: Mood normal. Behavior: Behavior normal. Vitals and nursing note reviewed. Exam conducted with a worm grower present. Vitals: Estimated body mass index is 34.19 kg/m as calculated from the following: Height as of 01/30/23: 5' 6 . Weight as of this encounter: 211 lb 12.8 oz. BP: 118/72 Patient's last menstrual period was 09/16/2024. ASSESSMENT & PLAN ICD-10-CM 1. Second trimester ([facility]) Z34.92 Alpha fetoprotein, maternal Alpha fetoprotein, maternal 2. 17 weeks gestation of ([facility]) Z3A.17 Alpha fetoprotein, maternal Alpha fetoprotein, maternal 3. Vaginal discharge N89.8 SURESWAB(R) ADVANCED VAGINITIS PLUS, TMA 4. STD exposure Z20.2 CHLAMYDIA TRACHOMATIS (GENITO/STI) Neisseria gonorrhea DNA probe, direct 5. Screening, , for anatomic survey ([facility]) Z36.89 US OB 14+ weeks anatomy scan 6. Gastroesophageal reflux in ([facility]) O99.619 omeprazole (PriLOSEC) [address] capsule K21.9 7. Gestational diabetes mellitus (GDM), antepartum, gestational diabetes method of control unspecified ([facility]) O24.419 glucose blood test strip Return OB/Annual Exam: Patient presents today for cultures/routine obstetrics appointment. Patient is currently 17w2d . Patient states she is doing well but has complaints of nausea in the morning. Cultures was obtained without difficulty and patient was given orders for anatomy scan and msAFP to be obtained. Pt to start checking sugars d/t glucose at 184. Orders Placed This Encounter Procedures US OB 14+ weeks anatomy scan CHLAMYDIA TRACHOMATIS (GENITO/STI) Neisseria gonorrhea DNA probe, direct Alpha fetoprotein, maternal Follow Up: Patient is to schedule annual exam for next year and return to office in 4 weeks for OB appointment. Documented by Criselda Aguirre LPN on behalf of: alesha bowie documented in this encounter [facility] 12-18-2024 History of Present illness Narrative Reason for Appointment: Patient ID: Vinny Downey is a 24 y.o. female who presents for Routine Visit Patient presents today for Return OB appointment. 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 SURGICAL HISTORY Past Surgical History: Procedure Laterality Date APPENDECTOMY SECTION, LOW TRANSVERSE 01/19/2023 DILATION AND CURETTAGE OF UTERUS REVIEW OF SYSTEMS Review of Systems: Review of Systems Constitutional: Negative. HENT: Negative. Eyes: Negative. Respiratory: Negative. Cardiovascular: Negative. Gastrointestinal: Negative. Genitourinary: Negative. Musculoskeletal: Negative. Skin: Negative. Neurological: Negative. All other systems reviewed and are negative. Hematological: Negative. Endocrine: Negative. Allergic/Immunologic: Negative. OBJECTIVE Objective: Physical Exam Constitutional: Appearance: Normal appearance. She is normal weight. HENT: Head: Normocephalic. Cardiovascular: Rate and Rhythm: Normal rate. Pulses: Normal pulses. Pulmonary: Effort: Pulmonary effort is normal. Breath sounds: Normal breath sounds. Abdominal: Palpations: Abdomen is soft. Musculoskeletal: General: Normal range of motion. Neurological: General: No focal deficit present. Mental Status: She is alert and oriented to person, place, and time. Psychiatric: Mood and Affect: Mood normal. Behavior: Behavior normal. Thought Content: Thought content normal. Judgment: Judgment normal. Vitals and nursing note reviewed. Vitals: Estimated body mass index is 34.22 kg/m as calculated from the following: Height as of 01/30/23: 5' 6 . Weight as of this encounter: 212 lb. BP: 116/70 Patient's last menstrual period was 09/16/2024. ASSESSMENT & PLAN ICD-10-CM 1. Second trimester Z34.92 POCT urinalysis dipstick manually resulted 2. 12 weeks gestation of Z3A.12 POCT urinalysis dipstick manually resulted 3. Subchorionic hematoma in first trimester, single or unspecified fetus O41.8X10 US OB transvaginal O46.8X1 4. Diabetes mellitus screening Z13.1 CBC Glucose tolerance, 1 hour CBC Glucose tolerance, 1 hour Return OB: Patient presents today for a routine obstetrics appointment. Patient is currently 13w3d . Patient states she is doing well but has complaints of being tired due to current . Patient has verbalizes frequent movement. Orders Placed This Encounter Procedures US OB transvaginal CBC Glucose tolerance, 1 hour POCT urinalysis dipstick manually resulted Follow Up: Patient is to return to office in 2 week for routine OB appointment. Documented by JOSEPH Bowie documented in this encounter [facility] 11-14-2024 History of Present illness Narrative Reason for Appointment: Patient ID: Vinny Downey is a 24 y.o. female who presents for Amenorrhea Patient presents today for a Nurse OB Intake appointment. Patient is 8w3d with a Estimated Date of Delivery: 06/23/25 OB History Para Term AB Living 3 1 1 1 1 SAB IAB Ectopic Multiple Live Births 1 1 # Outcome Date GA Lbr Rob/2nd Weight Sex Type Anes PTL Lv 3 Current 2 Term 01/19/23 39w0d 8 lb 8 oz F CS-LTranv OLIVIA 1 SAB 2021 Complete Obstetric Comments Last pap smear date 04/18/2022 neg Current Medications: has a current medication list which includes the following prescription(s): progesterone and sertraline. 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 Social History Tobacco Use Smoking status: Never Smokeless tobacco: Never Substance Use Topics Alcohol use: Never Drug use: Never Past Surgical History: Procedure Laterality Date APPENDECTOMY SECTION, LOW TRANSVERSE 01/19/2023 DILATION AND CURETTAGE OF UTERUS No Known Allergies Vitals: Estimated body mass index is 33.57 kg/m as calculated from the following: Height as of 01/30/23: 5' 6 . Weight as of this encounter: 208 lb. BP: 122/74 Patient's last menstrual period was 09/16/2024. Assessment/Plan Diagnoses and all orders for this visit: Missed menses - US OB transvaginal; Future - Type and screen; Future - ABO/Rh; Future - CBC and differential - Hemoglobin A1c - RPR - Rubella antibody, IgG - Hepatitis B surface antigen - Hepatitis C antibody - HIV-1 and HIV-2 antibodies - Urine culture - POCT , urine manually resulted - POCT urinalysis dipstick manually resulted 8 weeks gestation of , unspecified gestational age - Type and screen; Future - ABO/Rh; Future - CBC and differential - Hemoglobin A1c - RPR - Rubella antibody, IgG - Hepatitis B surface antigen - Hepatitis C antibody - HIV-1 and HIV-2 antibodies - Rapid drug screen, urine; Future Encounter for supervision of normal first in first trimester - Rapid drug screen, urine; Future History of miscarriage - Progesterone 200 MG suppository; Insert 200 mg into the vagina at bedtime Insert suppository vaginally every night at bedtime until 12 weeks gestation Nurse Note: Patient uncertain of doing the [place] screening. Pt was advised both labs and unity have to done in case mind is changed. PVU. Pt is in need of a refill for her progesterone suppositories, advised rx was sent. Patient is also currently on metformin 500 mg and zoloft and has a h/o GDM. Pt was advised an early 1 hr will be discussed at her first initial visit w/Dr. Foy because of having GDM with prior . PVU. OB Intake: Patient presents today for first OB visit. Patients history has been reviewed in great detail including any potential risks. Patient signed consent forms and patient desires testing in both trimesters. Patient currently has no complaints and has been advised to drink 6-8 glasses of water a day, eat no raw or undercooked meat, and [facility]. Patient has also been advised to not change litter boxes and eat 6 small meals a day. Patient has been consulted regarding the do's and don'ts of . Patient was given labs and all questions and concerns were answered. Follow Up: Patient is to return in 4 weeks for routine OB appointment. Follow Up: Patient is to have labs drawn at directed and return to office for initial OB appointment with provider. Patient may call office as needed with any concerns or questions. Nurse Visit Completed by: Elizabeth Ware MA documented in this encounter [facility] 07-15-2024 History of Present illness Narrative Reason for Appointment: Patient ID: Vinny Downey is a 23 y.o. female who presents for Gynecologic Exam Patient presents today for Annual Exam. 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 SURGICAL HISTORY Past Surgical History: Procedure Laterality Date APPENDECTOMY SECTION, LOW TRANSVERSE 01/19/2023 DILATION AND CURETTAGE OF UTERUS REVIEW OF SYSTEMS Review of Systems: Review of Systems All other systems reviewed and are negative. OBJECTIVE Objective: Physical Exam Constitutional: Appearance: Normal appearance. She is well-developed. Genitourinary: Vulva normal. Breasts: Breasts are soft. Right: Normal. Left: Normal. Cardiovascular: Rate and Rhythm: Normal rate and regular rhythm. Pulmonary: Effort: Pulmonary effort is normal. Breath sounds: Normal breath sounds. Abdominal: General: Bowel sounds are normal. There is no distension. Palpations: Abdomen is soft. Tenderness: There is no abdominal tenderness. There is no guarding or rebound. Musculoskeletal: General: No swelling. Normal range of motion. Right lower leg: No edema. Left lower leg: No edema. Neurological: Mental Status: She is alert and oriented to person, place, and time. Skin: General: Skin is warm and dry. Psychiatric: Mood and Affect: Mood normal. Behavior: Behavior normal. Vitals and nursing note reviewed. Exam conducted with a worm grower present. Vitals: Estimated body mass index is 33.89 kg/m as calculated from the following: Height as of 01/30/23: 5' 6 . Weight as of 07/05/23: 210 lb. BP: No LMP recorded. ASSESSMENT & PLAN ICD-10-CM 1. Well woman exam with routine gynecological exam Z01.419 Pap Smear Annual Exam: Patient presents today for an annual exam. Patient states she is doing well and has no complaints. Pap was obtained without difficulty. Discussed with patient post depression and medications that are available. Follow Up: Patient is to return in one year for annual unless needed otherwise. Documented by Elizabeth Ware MA on behalf of: Mukul Foy DO documented in this encounter [facility] 08-06-2023 Note HNO ID: [id number] Author: LANG CARREON APRN.[employer] Service: ? Author Type: Nurse Practitioner Type: Progress Notes Filed: 08/06/2023 10:44 Note Text: Telemedicine Visit - Distance Health Virtual Visit Note I have communicated my name and active licensure. The patient's identity and physical location were verified at the time of this visit. 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 Patient seen on virtual platforms, [employer]. Location of patient: [place] History of Presenting Illness: Vinny Downey 22 [...] - Sleep with head elevated due to [id number] increases cough - Continue Flonase - Flonase: [...] care - All questions answered Lang Carreon APRN.[facility] 07-11-2023 Note [facility] Reason [...] s/p -hgb 10.8 per recent labs Rajendra Sheffield MD Cardiac Electrophysiology [facility] 07-11-2023 Note Patient here for fol [facility] up event monitor. Echo was not performed that was ordered at last apt in Feb 2023 by Israel Champion CNP. Does not notice palpitations as often. Denies chest pain, SOB, and lightheadedness. Review of Systems Cardiovascular: Positive for palpitations (less often). All other systems reviewed and are negative. [facility] 03-30-2023 Note -developed anemia po stpartum s/p -hgb 10.8 per recent labs [facility] 03-30-2023 Note - could be related t o being , anemia -monitor and echo to rule out cardiac concern [facility] 03-30-2023 Note - [facility] 30-day event monit or - we will hold off on starting medication until follow-up [facility] 03-20-2023 Note New patient here to establish [...] All other systems reviewed and are negative. [facility] 03-20-2023 Note [facility] Consult Note Reason [...] are attached to (more content not included)... [facility] Evaluation note Diagnosis Frequent UTI Urinary tract infection, site not specified documented in this encounter [employer] Phone: evaluation note* Diagnosis Amenorrhea Absence of menstruation documented in this encounter [employer] Phone: evaluation note* Diagnosis Elevated liver enzymes Nonspecific elevation of levels of transaminase or lactic acid dehydrogenase (LDH) Mixed hyperlipidemia documented in this encounter [employer] [facility]* Diagnosis Well woman exam with routine gynecological exam Routine gynecological examination documented in this encounter [facility] Healthcare[facility] note* Diagnosis Missed menses 8 weeks gestation of , unspecified gestational age Encounter for supervision of normal first in first trimester History of miscarriage Personal history of other genital system and obstetric disorders documented in this encounter [facility] HealthcareEvaluation note* Diagnosis Second trimester state, incidental 12 weeks gestation of Subchorionic hematoma in first trimester, single or unspecified fetus Diabetes mellitus screening Screening for diabetes mellitus documented in this encounter [facility] HealthcareEvaluation note* Diagnosis Subchorionic hematoma, antepartum, first trimester, not applicable or unspecified fetus documented in this encounter [employer] [facility]* Diagnosis Second trimester ([facility]) state, incidental 17 weeks gestation of ([facility]) Vaginal discharge Leukorrhea, not specified as infective STD exposure Screening, , for anatomic survey ([facility]) Encounter for anatomic survey Gastroesophageal reflux in ([facility]) Gestational diabetes mellitus (GDM), antepartum, gestational diabetes method of control unspecified ([facility]) documented in this encounter [facility] note* Diagnosis Second trimester ([facility]) state, incidental 20 weeks gestation of ([facility]) documented in this encounter [facility] Healthcare[facility] note* Diagnosis 23 weeks gestation of ([facility]) Elevated blood sugar level Other abnormal glucose Gastroesophageal reflux disease without esophagitis Esophageal reflux documented in this encounter [facility]* Diagnosis 25 weeks gestation of ([facility]) Second trimester ([facility]) state, incidental Gastroesophageal reflux disease without esophagitis Esophageal reflux documented in this encounter [facility]* Diagnosis 28 weeks gestation of ([facility]) Third trimester ([facility]) state, incidental Dizziness Dizziness and giddiness Gestational diabetes mellitus (GDM), antepartum, gestational diabetes method of control unspecified ([facility] [facility] History of miscarriage Personal history of other genital system and obstetric disorders Anemia, unspecified type UTI symptoms documented in this encounter [facility] Narrative* Imaging (Routine) - Open Specialty Diagnoses / Procedures Referred By Contac t Referred To Contact Radiology Diagnoses Subchorionic hematoma, antepartum, first trimester, not applicable or unspecified fetus Procedures US OB LESS THAN 14 WEEKS SINGLE OR FIRST GESTATION W DOPPLER US OB TRANSVAGINAL Mukul Foy MD [address] 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 Water Purifier Operator Expl anation Advance Directives and Living Will Power of Floor Hand Documents on File Type Date Recorded Patient Water Purifier Operator Expl anation ACP-Advance Directive ACP-Power of Floor Hand Documents on File Type Date Recorded Patient Water Purifier Operator Expl anation ACP-Advance Directive ACP-Power of Floor Hand Summary Purpose Family History No Family History Records FoundNo Family History Records FoundNo Family History Records FoundNo Family History Records FoundNo Family History Records FoundNo Family History Records FoundNo Family History Records Found Reason for Referral Status Reason Specialty Diagnoses / Procedures Referre d By Contact Referred To Contact Closed Radiology Diagnoses Frequent UTI Procedures US RENAL COMPLETE Lorena Ricks, RECYCLING MANAGER - FARMWORKER ANIMAL [address] [place] [address] Additional Source Comments INFORMATION SOURCE (unrecogn ized section and content) DATE CREATED AUTHOR 10/14/2020 Hany Harvey [facility] DATE CREATED AUTHOR AUTHOR'S ORGANIZ ATION 09/26/2021 [facility] DATE CREATED AUTHOR AUTHOR'S ORGANIZ ATION 12/30/2022 [facility] DATE CREATED AUTHOR AUTHOR'S ORGANIZ ATION 08/03/2023 [facility] DATE CREATED AUTHOR AUTHOR'S ORGANIZ ATION 08/07/2023 [facility] DATE CREATED AUTHOR AUTHOR'S ORGANIZ ATION 01/09/2025 [facility] DATE CREATED AUTHOR AUTHOR'S ORGANIZ ATION 03/14/2025 [facility]IC Reason for Visit (unrecogniz ed section and content) Status Reason Specialty Diagnoses / Procedures Referre d By Contact Referred To Contact Closed Radiology Diagnoses Frequent UTI Procedures US RENAL COMPLETE Lorena Ricks, RECYCLING MANAGER - FARMWORKER ANIMAL [address] [place] [address] Reason Comments Gynecologic Exam Reason Comments Amenorrhea Reason Comments Routine Visit Reason Comments Routine Visit STI Screening Care Teams (unrecognized sec tion and content) Electron Beam Welder Relationship Specialty Start Date End Date Ynes Rodriguez, RECYCLING MANAGER - FARMWORKER ANIMAL [address] [place] [address] PCP - General Family Nurse Practitioner 05/04/20 Electron Beam Welder Relationship Specialty Start Date End Date Ynes Rodriguez, RECYCLING MANAGER - FARMWORKER ANIMAL [address] [place] [address] [address] [place] [address] PCP - General Family Nurse Practitioner 05/04/20 Electron Beam Welder Relationship Specialty Start Date End Date Ynes Rodriguez, RECYCLING MANAGER - FARMWORKER ANIMAL [facility] [address] [place] [address] PCP - General Family Nurse Practitioner 08/02/22 Electron Beam Welder Relationship Specialty Start Date End Date Ynes Rodriguez, RECYCLING MANAGER - FARMWORKER ANIMAL [address] [place] [address] [address] [place] [address] PCP - General Family Nurse Practitioner 08/02/22 Electron Beam Welder Relationship Specialty Start Date End Date Ynes Rodriguez, RECYCLING MANAGER - FARMWORKER ANIMAL [address] [facility] [address] PCP - General Family Nurse Practitioner 08/02/22 [...] BE BASED ON THE PRIMARY CLINICAL RECORDS. [facility] [employer] [facility]. provides no warranty or guarantee of the accuracy or completeness of information in this document.
== END 2025-04-05 09:55 | disposition home or self-care (01) ==
LOC: US 09:54
PROVIDERS: Visit Provider Physician Assistant
DX: Z34.93 Encounter for supervision of normal pregnancy, unspecified, third trimester (principal); Z87.59 Personal history of other complications of pregnancy, childbirth and the puerperium; Z3A.28 28 weeks gestation of pregnancy; R42 Dizziness and giddiness; D64.9 Anemia, unspecified
CPT/HCPCS: 36415; 76816; 85025

== ENCOUNTER 2025-04-05 10:16 | Outpatient (OUT) | payer OTHER, SELFPAY ==
--- OUTSIDE RECORDS SUMMARY | 2025-04-05 10:22 | XMS_ITS | CCD ---
Author Organization [facility] CliniSymt Care Team Providers Care Back End Web Developer Name Role Phone Jannette Peña I Primary Care Provider [phone] Ynes Rodriguez Primary Care Provider Fede LUX Ynes ANDRES Primary Care Provide r LAW, MUKUL R Admitting Unavailable LAW, MUKUL R Primary Care Unavailable LAW, MUKUL R Admitting Unavailable LAW, MUKUL R Primary Care Unavailable LAW, MUKUL R Admitting Unavailable LAW, MUKUL R Primary Care Unavailable BERTO LIVE Admitting Unavailabl e LAW, MUKUL R Primary Care Unavailable Fede CONSUMER RELATIONS COMPLAINT CLERK - HAND BRUSH FILLER, Ynes Conner Primary Care Provide r Unavailable Primary Care Provider Unavailabl e LAW ., DR DE LA TORRE Attending Unavailable MISC, DR YAÑEZ Primary Care Unavailable [place], DR YELENA Henao Consulting Unavailable LAW ., [...] Unavailable MISC, DR YAÑEZ Primary Care Unavailable [place], DR YELENA Henao Consulting Unavailable LAW ., [...] Attending Unavailable LAW, MUKUL Attending Unavailable MUKUL FYO Attending Unavailable Medications Current Medications Medication Drug [...] MG 24 hr tablet Indications: Second trimester ([facility]) , 20 weeks gestation of ([facility]) Take 2 tablets (1,000 mg) by mouth [...] EC tablet Indications: 23 weeks gestation of ([facility]) , Elevated blood sugar level , Gastroesophageal [...] UA Negative Negative - 4(70) +++ mg/dL [facility] Blood, UA Negative Negative - 50 Yunior/mcL [facility] Clarity, UA Clear [facility] Color, UA Yellow [facility] Glucose, UA Negative Negative - 1999(110) ++++ mg/dL [facility] Interpretation and review of laboratory results Abnormal [facility] Ketones, UA Negative Negative - 160(16) ++++ mg/dL [facility] Leukocytes, UA Positive Negative - 500+++ Trip/mcL [facility] Nitrite, UA Negative Negative - Positive [facility] pH, UA 6.5 5 - 9 [facility] Protein, UA Negative Negative - 1999(20) ++++ mg/dL [facility] Spec Grav, UA 1.01 1 - 1.03 [facility] Urobilinogen, UA 1.0 0.2 - 12 mg/dL [facility] Urinalysis macro (dipstick) panel (U)on 03-12-2025 Bilirubin, UA Negative Negative - 4(70) +++ mg/dL [facility] Blood, UA Negative Negative - 50 Yunior/mcL [facility] Clarity, UA Clear [facility] Color, UA Yellow [facility] Glucose, UA Negative Negative - 1999(110) ++++ mg/dL [facility] Interpretation and review of laboratory results Normal [facility] Ketones, UA Negative Negative - 160(16) ++++ mg/dL [facility] Leukocytes, UA Negative Negative - 500+++ Trip/mcL [facility] Nitrite, UA Negative Negative - Positive [facility] pH, UA 6.5 5 - 9 [facility] Protein, UA Negative Negative - 1999(20) ++++ mg/dL [facility] Spec Grav, UA 1.01 1 - 1.03 [facility] Urobilinogen, UA 1.0 0.2 - 12 mg/dL [facility] Urinalysis macro (dipstick) panel (U)on 02-26-2025 Bilirubin, UA Negative Negative - 4(70) +++ mg/dL [facility] Blood, UA Negative Negative - 50 Yunior/mcL [facility] Clarity, UA Clear [facility] Color, UA Yellow [facility] Glucose, UA Negative Negative - 1999(110) ++++ mg/dL [facility] Interpretation and review of laboratory results Normal [facility] Ketones, UA Negative Negative - 160(16) ++++ mg/dL [facility] Leukocytes, UA Negative Negative - 500+++ Trip/mcL [facility] Nitrite, UA Negative Negative - Positive [facility] pH, UA 6 5 - 9 [facility] Protein, UA Negative Negative - 1999(20) ++++ mg/dL [facility] Spec Grav, UA 1.01 1 - 1.03 [facility] Urobilinogen, UA 0.2 0.2 - 12 mg/dL [facility] US OB 14+ WEEKS ANATOMY SCAN on [...] UA Negative Negative - 4(70) +++ mg/dL [facility] Blood, UA Negative Negative - 50 Yunior/mcL [facility] Clarity, UA Clear [facility] Color, UA Yellow [facility] Glucose, UA Negative Negative - 1999(110) ++++ mg/dL [facility] Interpretation and review of laboratory results Normal [facility] Ketones, UA Negative Negative - 160(16) ++++ mg/dL [facility] Leukocytes, UA Negative Negative - 500+++ Trip/mcL [facility] Nitrite, UA Negative Negative - Positive [facility] pH, UA 6.5 5 - 9 [facility] Protein, UA Negative Negative - 2000(20) ++++ mg/dL [facility] Spec Grav, UA 1.025 1 - 1.03 [facility] Urobilinogen, UA 1.0 0.2 - 12 mg/dL [facility] RECURRENT VAGINITIS (HTRX)on 01-17-2025 ATOPOBIUM VAGINAE 0 [facility] ATOPOBIUM VAGINAE Not detected [facility] BVAB 2,3 (BACTERIAL VAGINOSIS ASSOCIATED BACTERIA 2, 3); MOBILUNCUS SPP 0 [facility] BVAB 2,3 (BACTERIAL VAGINOSIS ASSOCIATED BACTERIA 2, 3); MOBILUNCUS SPP Not detected [facility] AINSLEY ALBICANS, PARAPSILOSIS, TROPICALIS 0 [facility] AINSLEY ALBICANS, PARAPSILOSIS, TROPICALIS Not detected [facility] AINSLEY GLABRATA 0 [facility] AINSLEY GLABRATA Not detected [facility] AINSLEY KRUSEI 0 [facility] AINSLEY KRUSEI Not detected [facility] CHLAMYDIA TRACHOMATIS 0 [facility] CHLAMYDIA TRACHOMATIS Not detected [facility] GARDNERELLA VAGINALIS 0 [facility] GARDNERELLA VAGINALIS Not detected [facility] MEGASPHAERA (TYPES 1, 2) 0 [facility] MEGASPHAERA (TYPES 1, 2) Not detected [facility] MYCOPLASMA GENITALIUM 0 [facility] MYCOPLASMA GENITALIUM Not detected [facility] NEISSERIA GONORRHOEAE 0 [facility] NEISSERIA GONORRHOEAE Not detected [facility] TRICHOMONAS VAGINALIS 0 [facility] TRICHOMONAS VAGINALIS Not detected [facility] CBCon 01-07-2025 Erythrocyte distribution width (RBC) [Ratio] 12.6 % 11.8 - 14.4 % [facility] Hematocrit (Bld) [Volume fraction] 35.4 % Low 36.3 - 47.1 % [facility] Hemoglobin (Bld) [Mass/Vol] 11.7 g/dL Low 11.9 - 15.1 g/dL [facility] Interpretation and review of laboratory results Abnormal [facility] MCH (RBC) [Entitic mass] 30 pg 25.2 - 33.5 pg [facility] MCHC (RBC) [Mass/Vol] 33.1 g/dL 28.4 - 34.8 g/dL [facility] MCV (RBC) [Entitic vol] 90.8 fL 82.6 - 102.9 fL [facility] Nucleated RBC/100 WBC (Bld) [Ratio] 0 % 0.0 per 100 WBC [facility] Platelet mean volume (Bld) [Entitic vol] 8.7 fL 8.1 - 13.5 fL [facility] Platelets (Bld) [#/Vol] 316 10*3/uL [facility] RBC (Bld) [#/Vol] 3.9 10*6/uL Low 3.95 - 5.1 1 m/uL [facility] WBC other (Bld) [#/Vol] 10.2 [facility] Erythrocyte distribution width (RBC) [Ratio] 12.6 % Normal 11.8-14.4 [facility] Comment on above: Performed By: #### G LUSC, CBC #### [address] [place] [address] Merchandise Examiner: Yelena Greco MD Hematocrit (Bld) [Volume fraction] 35.4 % Low 36.3-47.1 [facility] Comment on above: Performed By: #### G LUSC, CBC #### [address] [place] [place] [address] Merchandise Examiner: Yelena Greco MD Hemoglobin (Bld) [Mass/Vol] 11.7 g/dL Low 11.9-15.1 [facility] Comment on above: Performed By: #### G LUSC, CBC #### [address] [place] [address] Merchandise Examiner: Yelena Greco MD MCH (RBC) [Entitic mass] 30.0 pg Normal 25.2-33.5 [facility] Comment on above: Performed By: #### G LUSC, CBC #### [facility] [address] [place], [place] [id number] Merchandise Examiner: Yelena Greco MD MCHC (RBC) [Mass/Vol] 33.1 g/dL Normal 28.4-34.8 [facility] Comment on above: Performed By: #### G JANAE, CBC #### [address] [place], [facility] Merchandise Examiner: Yelena Greco MD MCV (RBC) [Entitic vol] 90.8 fL Normal 82.6-102.9 [facility] Comment on above: Performed By: #### G JANAE, CBC #### [address] [place], [place] [id number] Merchandise Examiner: Yelena Greco MD NRBC Automated 0.0 per 100 WBC Normal 0.0 [facility] Comment on above: Performed By: #### G JANAE, CBC #### [address] [place], [facility] Merchandise Examiner: Yelena Greco MD Platelet mean volume (Bld) [Entitic vol] 8.7 fL Normal 8.1-13.5 [facility] Comment on above: Performed By: #### G JANAE, CBC #### [address] [place], [facility]83 Merchandise Examiner: Yelena Greco MD Platelets (Bld) [#/Vol] 316 10*3/uL Normal 138-453 [facility] Comment on above: Performed By: #### G JANAE, CBC #### [address] [place], [place] [address] Merchandise Examiner: Yelena Greco MD RBC (Bld) [#/Vol] 3.90 10*6/uL Low 3.95-5.11 [facility] Comment on above: Performed By: #### G JANAE, CBC #### [address] [place] [place] [address] Merchandise Examiner: Yelena Greco MD WBC (Bld) [#/Vol] 10.2 10*3/uL Normal 3.5-11.3 [facility] Comment on above: Performed By: #### Honorio CARDOSO, CBC #### [facility] [address] [place] [address] Merchandise Examiner: Yelena Greco MD Glucose Challenge Gestationa harlan 01-07-2025 GLU ADMN Glucola [facility] Glucose 1 Hr post 50 g glucose PO [Mass/Vol] 184 mg/dL High 70 - 135 mg/dL [facility] Interpretation and review of laboratory results Abnormal [facility] Glucose Toya Scr 50gon 2024 Glucose [Mass/Vol] 184 mg/dL High 70-135 [facility] Comment on above: Performed By: #### Honorio CARDOSO, CBC #### [facility] [address] [place], [place] [address] Merchandise Examiner: Yelena Greco MD Glu Administered via Glucola Normal [facility] Comment on above: Performed By: #### Honorio CARDOSO, CBC #### [facility] [address] [place], [place] [id number] Merchandise Examiner: Yelena Greco MD US OB LESS THAN [...] by: Noah Rivero MD 12/23/24 Final result [facility] Radiology, Radiologist, MD - 12/23/2024 EXAMINATION: FIRST [...] by: Noah Rivero MD 12/23/24 Final result [facility] Radiology Study observation (narrative) [facility] US OB LESS THAN 14 WEEKS SIN GLE OR FIRST GESTATIONOrdered By: Radiologist Radiology on 12-23-2024 [facility] Work Phone: US OB LESS THAN 14 [...] Noah Rivero MD 12/23/24 Final result Normal [facility] Urinalysis macro (dipstick) panel (U)on 12-18-2024 Bilirubin, UA Negative Negative - 4(70) +++ mg/dL [facility] Blood, UA Positive Negative - 50 Yunior/mcL [facility] Clarity, UA Clear [facility] Color, UA Yellow [facility] Glucose, UA Negative Negative - 2000(110) ++++ mg/dL [facility] Interpretation and review of laboratory results Abnormal [facility] Ketones, UA Negative Negative - 160(16) ++++ mg/dL [facility] Leukocytes, UA Negative Negative - 500+++ Trip/mcL [facility] Nitrite, UA Negative Negative - Positive [facility] pH, UA 7 5 - 9 [facility] Protein, UA Negative Negative - 1999(20) ++++ mg/dL [facility] Spec Grav, UA 1.01 1 - 1.03 [facility] Urobilinogen, UA 1.0 0.2 - 12 mg/dL [facility] HCG ( test) Ql (U)o n 11-14-2024 Interpretation and review of laboratory results Abnormal [facility] Preg Test, Ur Positive Negative [facility] US OB TRANSVAGINALon 025 US OB TRANSVAGINAL [...] II, MD, PHD at 15-Nov-2024 09:44:32 AM [facility] Normal Not Available Comment on above: Order Comment: US OB TRANSVAGINAL No LMP recorded. Urinalysis macro (dipstick) panel (U)on 11-14-2024 Bilirubin, UA Negative Negative - 4(70) +++ mg/dL [facility] Blood, UA Negative Negative - 50 Yunior/mcL [facility] Clarity, UA Clear [facility] Color, UA Yellow [facility] Glucose, UA Negative Negative - 1999(110) ++++ mg/dL [facility] Interpretation and review of laboratory results Normal [facility] Ketones, UA Negative Negative - 160(16) ++++ mg/dL [facility] Leukocytes, UA Negative Negative - 500+++ Trip/mcL [facility] Nitrite, UA Negative Negative - Positive [facility] pH, UA 6.5 5 - 9 [facility] Protein, UA Negative Negative - 1999(20) ++++ mg/dL [facility] Spec Grav, UA 1.005 1 - 1.03 [facility] Urobilinogen, UA 0.2 0.2 - 12 mg/dL [facility] IGP,APTIMA HPV,AGE GDLNon AGE GDLN ACOG TESTING Note . [facility] Comment on above: TESTS RESULT FLAG UN ITS REF RANGE LAB Clinician Provided Cytology Information Source.............Cervix;Endocervix No. of containers..01 ThinPrep Vial Age Algo ACOG Addie... -21 08 FLAG LEGEND: L-Low Normal,H-High Normal,LL-Alert Low,HH-Alert High <-Panic Low,>-Panic High,A-Abnormal,AA-Critical Abnormal Performed at: 01 =[facility] [address] [place] [address] Anastasiya Moses MD, IGP, RFX APTIMA HPV ASCU Note . [facility] Comment on above: TESTS RESULT FLAG UN ITS REF RANGE LAB DIAGNOSIS: 02 NEGATIVE FOR INTRAEPITHELIAL LESION OR MALIGNANCY. Specimen adequacy: 02 Satisfactory for evaluation. Endocervical and/or squamous metaplastic cells (endocervical component) are present. Performed by: 02 Maico Galaviz, [facility] ([facility]) . 02 Note: Note 02 The Pap [...] High,A-Abnormal,AA-Critical Abnormal Performed at: 02 WB [facility] [address] [id number] Anastasiya Moses MD, Performed at: =G - [facility] [address] [id number] Merchandise Examiner: Anastasiya Moses MD, Phone: [phone] Performed at: WB - [facility] [address] [id number] Merchandise Examiner: Anastasiya Moses MD, Phone: [phone] BRUSH-SPATULA CERVIX ENDOCERVIX [facility] Metabolic Profon 2023 Albumin [Mass/Vol] 4.6 g/dL Normal 3.5-5.2 [facility] Comment on above: Performed By: #### C P #### [facility] [address] [place] [address] Merchandise Examiner: Yelena Greco MD Albumin/Glob Ratio 1.5 Normal 1.0-2.5 [facility] Comment on above: Performed By: #### C P #### [facility] [address] [place] [address] Merchandise Examiner: Yelena Greco MD Alkaline Phos 71 U/L Normal 35-104 [facility] Comment on above: Performed By: #### C P #### [facility] [address] [place] [address] Merchandise Examiner: Yelena Greco MD ALT [Catalytic activity/Vol] 41 U/L High 10-35 [facility] Comment on above: Performed By: #### C P #### [facility] [address] [place] [address] Merchandise Examiner: Yelena Greco MD Anion gap [Moles/Vol] 10 mmol/L Normal 9-16 [facility] Comment on above: Performed By: #### C P #### [facility] [address] [place] [id number] Merchandise Examiner: Yelena Greco MD AST [Catalytic activity/Vol] 34 U/L Normal 10-35 [facility] Comment on above: Performed By: #### C P #### [facility] [address] [place], [place] [address] Merchandise Examiner: Yelena Greco MD Bilirubin [Mass/Vol] 0.4 mg/dL Normal 0.00-1.20 [facility] Comment on above: Performed By: #### C P #### [facility] [address] [place], [place] [address] Merchandise Examiner: Yelena Greco MD BUN/CRE Ratio 22 High 9-20 [facility] Comment on above: Performed By: #### C P #### [facility] [address] [place], [place] [address] Merchandise Examiner: Yelena Greco MD Calcium [Mass/Vol] 9.4 mg/dL Normal 8.6-10.4 [facility] Comment on above: Performed By: #### C P #### [facility] [address] [place], [place] [address] Merchandise Examiner: Yelena Greco MD Chloride [Moles/Vol] 103 mmol/L Normal 98-107 [facility] Comment on above: Performed By: #### C P #### [facility] [address] [place], [place] [address] Merchandise Examiner: Yelena Greco MD CO2 [Moles/Vol] 25 mmol/L Normal 20-31 [facility] Comment on above: Performed By: #### C P #### [facility] [address] [place], [place] [address] Merchandise Examiner: Yelena Greco MD Creatinine [Mass/Vol] 0.6 mg/dL Normal 0.50-0.90 [facility] Comment on above: Performed By: #### C P #### [facility] [address] [place] [address] Merchandise Examiner: Yelena Greco MD GFR/1.73 sq M.predicted among non-blacks MDRD (S/P/Bld) [Vol rate/Area] mL/min/{1.73_m2} Normal >60 [facility] Comment on above: Result Comment: These results [...] secretion. Performed By: #### C P #### [facility] [address] [place] [address] Merchandise Examiner: Yelena Greco MD Glucose [Mass/Vol] 83 mg/dL Normal 74-99 [facility] Comment on above: Performed By: #### C P #### [facility] [address] [place] [address] Merchandise Examiner: Yelena Greco MD Potassium [Moles/Vol] 4.6 mmol/L Normal 3.7-5.3 [facility] Comment on above: Performed By: #### C P #### [facility] [address] [place] [address] Merchandise Examiner: Yelena Greco MD Protein [Mass/Vol] 7.8 g/dL Normal 6.6-8.7 [facility] Comment on above: Performed By: #### C P #### [facility] [address] [place] [address] Merchandise Examiner: Yelena Greco MD Sodium [Moles/Vol] 138 mmol/L Normal 136-145 [facility] Comment on above: Performed By: #### C P #### [facility] [address] [place] [address] Merchandise Examiner: Yelena Greco MD Urea nitrogen [Mass/Vol] 13 mg/dL Normal 6-20 [facility] Comment on above: Performed By: #### C P #### [facility] [address] [place] [address] Merchandise Examiner: Yelena Greco MD Comprehensive Metabolic [facility] 05-20-2024 Albumin [Mass/Vol] 4.6 g/dL 3.5 - 5.2 g/dL [facility] Albumin/Globulin [Mass ratio] 1.5 {ratio} 1.0 - 2.5 [facility] ALP [Catalytic activity/Vol] 71 U/L 35 - 104 U/L [facility] ALT [Catalytic activity/Vol] 41 U/L High 10 - 35 U/L [facility] Anion gap [Moles/Vol] 10 mmol/L 9 - 16 mmol/L [facility] AST [Catalytic activity/Vol] 34 U/L 10 - 35 U/L [facility] Bilirubin [Mass/Vol] 0.4 mg/dL 0.00 - 1.20 mg/dL [facility] Calcium [Mass/Vol] 9.4 mg/dL 8.6 - 10. 4 mg/dL [facility] Chloride [Moles/Vol] 103 mmol/L 98 - 107 mmol/L [facility] CO2 [Moles/Vol] 25 mmol/L 20 - 31 mmol/L [facility] Creatinine [Mass/Vol] 0.6 mg/dL 0.50 - 0.90 mg/dL [facility] Est, Glom Filt Rate - PINF [facility] Comment on above: These results are not [...] [Mass/Vol] 83 mg/dL 74 - 99 mg/dL [facility] Interpretation and review of laboratory results Abnormal [facility] Potassium [Moles/Vol] 4.6 mmol/L 3.7 - 5.3 mmol/L [facility] Protein [Mass/Vol] 7.8 g/dL 6.6 - 8.7 g/dL [facility] Sodium [Moles/Vol] 138 mmol/L 136 - 145 mmol/L [facility] Urea nitrogen [Mass/Vol] 13 mg/dL 6 - 20 mg/dL [facility] Urea nitrogen/Creatinine [Mass ratio] 22 mg/mg High 9 - 20 [facility] Lipid Panelon 05-20-2024 Cholesterol [Mass/Vol] 152 mg/dL 0 - 199 mg/dL [facility] Comment on above: Cholesterol Guidelines: <200 Desirable 200-240 Borderline >240 Undesirable Cholesterol in HDL [Mass/Vol] 33 mg/dL Low 40 - PINF mg/dL [facility] Comment on above: HDL Guidelines: <40 Undesirable 40-59 Borderline >59 Desirable Cholesterol in LDL [Mass/Vol] 88 mg/dL 0 - 100 mg/dL [facility] Comment on above: LDL Guidelines: <100 Desirable 100-129 Near to/above Desirable 130-159 Borderline >159 Undesirable Direct (measured) LDL and calculated LDL are not interchangeable tests. Cholesterol in VLDL [Mass/Vol] 31 mg/dL [facility] Cholesterol.total/Ch olesterol in HDL [Mass ratio] 5.0 {ratio} [facility] Interpretation and review of laboratory results Abnormal [facility] Triglyceride [Mass/Vol] 156 mg/dL High NINF - 150 mg/dL [facility] Comment on above: Triglyceride Guidelines: <150 Desirable 150-199 Borderline 200-499 High >499 Very high Based on AHA Guidelines for fasting triglyceride, April 2012. [facility] Lipid Profileon 05-20-2024 Cholesterol [Mass/Vol] 152 mg/dL Normal 0-199 [facility] Comment on above: Result Comment: Cholesterol Guidelines: <200 Desirable 200-240 Borderline >240 Undesirable Performed By: #### L IPR #### [facility] [facility] [place] [address] Merchandise Examiner: Osvaldo Santamaria MD Cholesterol in HDL [Mass/Vol] 33 mg/dL Low >40 [facility] Comment on above: Result Comment: HDL Guidelines: <40 Undesirable 40-59 Borderline >59 Desirable Performed By: #### L IPR #### [address] [address] Merchandise Examiner: Osvaldo Santamaria MD Cholesterol in LDL [Mass/Vol] 88 mg/dL Normal 0-100 [facility] Comment on above: Result Comment: LDL Guidelines: <100 Desirable 100-129 Near to/above Desirable 130-159 Borderline >159 Undesirable Direct (measured) LDL and calculated LDL are not interchangeable tests. Performed By: #### L IPR #### [address] [address] Merchandise Examiner: Osvaldo Santamaria MD Cholesterol in VLDL [Mass/Vol] 31 mg/dL Normal [facility] Comment on above: Performed By: #### L IPR #### [address] [address] Merchandise Examiner: Osvaldo Santamaria MD Cholesterol.total/Ch olesterol in HDL [Mass ratio] 5.0 {ratio} Normal [facility] Comment on above: Performed By: #### L IPR #### [address] [address] Merchandise Examiner: Osvaldo Santamaria MD Triglyceride [Mass/Vol] 156 mg/dL High <150 [facility] Comment on above: Result Comment: Triglyceride Guidelines: <150 Desirable 150-199 Borderline 200-499 High >499 Very high Based on AHA Guidelines for fasting triglyceride, April 2012. Performed By: #### L IPR #### [address] [address] Merchandise Examiner: Osvaldo Santamaria MD US GALLBLADDER RUQon 03-06- [...] Hernandez Stewart MD 03/06/24 Final result Normal [facility] CBCon 02-16-2024 Erythrocyte distribution width (RBC) [Ratio] 12.4 % Normal 11.8-14.4 [facility] Comment on above: Performed By: #### F EBC #### [address] [address] Merchandise Examiner: Osvaldo Santamaria MD #### CBC, CP #### [facility] [address] [place] [address] [place] [address] Merchandise Examiner: Yelena Greco MD Hematocrit (Bld) [Volume fraction] 40.2 % Normal 36.3-47.1 [facility] Comment on above: Performed By: #### F EBC #### [address] [address] Merchandise Examiner: Osvaldo Santamaria MD #### CBC, CP #### [facility] [address] [place] [address] [place] [address] Merchandise Examiner: Yelena Greco MD Hemoglobin (Bld) [Mass/Vol] 13.5 g/dL Normal 11.9-15.1 [facility] Comment on above: Performed By: #### F EBC #### [address] [address] Merchandise Examiner: Osvaldo Santamaria MD #### CBC, CP #### [facility] [address] [place] [address] Merchandise Examiner: Yelena Greco MD MCH (RBC) [Entitic mass] 29.8 pg Normal 25.2-33.5 [facility] Comment on above: Performed By: #### F EBC #### [address] [id number] Merchandise Examiner: Osvlado Santamaria MD #### CBC, CP #### [facility] [address] [place] [address] Merchandise Examiner: Yelena Greco MD MCHC (RBC) [Mass/Vol] 33.6 g/dL Normal 28.4-34.8 [facility] Comment on above: Performed By: #### F EBC #### [address] [id number] Merchandise Examiner: Osvaldo Santamaria MD #### CBC, CP #### [facility] [address] [place] [address] Dr. [place] [id number] Merchandise Examiner: Yelena Greco MD MCV (RBC) [Entitic vol] 88.7 fL Normal 82.6-102.9 [facility] Comment on above: Performed By: #### F EBC #### [address] [id number] Merchandise Examiner: Osvaldo Santamaria MD #### CBC, CP #### [facility] [address] [place] [address] [place] [address] Merchandise Examiner: Yelena Greco MD NRBC Automated 0.0 per 100 WBC Normal 0.0 [facility] Comment on above: Performed By: #### F EBC #### [address] [id number] Merchandise Examiner: Osvaldo Santamaria MD #### CBC, CP #### [facility] [address] [place], [place] [id number] Merchandise Examiner: Yelena Greco MD Platelet mean volume (Bld) [Entitic vol] 8.5 fL Normal 8.1-13.5 [facility] Comment on above: Performed By: #### F EBC #### [address] [id number] Merchandise Examiner: Osvaldo Santamaria MD #### CBC, CP #### [facility] [address] [place], [place] [id number] Merchandise Examiner: Yelena Greco MD Platelets (Bld) [#/Vol] 309 10*3/uL Normal 138-453 [facility] Comment on above: Performed By: #### F EBC #### [address] [address] Merchandise Examiner: Osvaldo Santamaria MD #### CBC, CP #### [facility] [address] [place], [place] [id number] Merchandise Examiner: Yelena Greco MD RBC (Bld) [#/Vol] 4.53 10*6/uL Normal 3.95-5.11 [facility] Comment on above: Performed By: #### F EBC #### [address] [address] Merchandise Examiner: Osvaldo Santamaria MD #### CBC, CP #### [facility] [address] [place] [address] Merchandise Examiner: Yelena Greco MD WBC (Bld) [#/Vol] 6.5 10*3/uL Normal 3.5-11.3 [facility] Comment on above: Performed By: #### F EBC #### [address] [address] Merchandise Examiner: Osvaldo Santamaria MD #### CBC, CP #### [facility] [address] [place], [place] [id number] Merchandise Examiner: Yelena Greco MD Comp Metabolic Profon 2023 Albumin [Mass/Vol] 4.5 g/dL Normal 3.5-5.2 [facility] Comment on above: Performed By: #### F EBC #### [address] [address] Merchandise Examiner: Osvaldo Santamaria MD #### CBC, CP #### [facility] [address] [place], [place] [phone] Merchandise Examiner: Yelena Greco MD Albumin/Glob Ratio 1.5 Normal 1.0-2.5 [facility] Comment on above: Performed By: #### F EBC #### [address] [address] Merchandise Examiner: Osvaldo Santamaria MD #### CBC, CP #### [address] [place], [place] [id number] Merchandise Examiner: Yelena Greco MD Alkaline Phos 74 U/L Normal 35-104 [facility] Comment on above: Performed By: #### F EBC #### [address] [address] Merchandise Examiner: Osvaldo Santamaria MD #### CBC, CP #### [address] [place], [place] [phone] Merchandise Examiner: Yelena Greco MD ALT [Catalytic activity/Vol] 61 U/L High 5-33 [facility] Comment on above: Performed By: #### F EBC #### [address] [address] Merchandise Examiner: Osvaldo Santamaria MD #### CBC, CP #### [address] [place], [place] [phone] Merchandise Examiner: Yelena Greco MD Anion gap [Moles/Vol] 8 mmol/L Low 9-17 [facility] Comment on above: Performed By: #### F EBC #### [facility] [address] [place] [address] Merchandise Examiner: Osvaldo Santamaria MD #### CBC, CP #### [facility] [address] [place], [place] [phone] Merchandise Examiner: Yelena Greco MD AST [Catalytic activity/Vol] 43 U/L High <32 [facility] Comment on above: Performed By: #### F EBC #### [address] [address] Merchandise Examiner: Osvaldo Santamaria MD #### CBC, CP #### [facility] [address] [place] [address] Dr. [place] [phone] Merchandise Examiner: Yelena Greco MD Bilirubin [Mass/Vol] 0.2 mg/dL Low 0.3-1.2 [facility] Comment on above: Performed By: #### F EBC #### [facility] [address] [place] [address] Merchandise Examiner: Osvaldo Santamaria MD #### CBC, CP #### [address] [place] [phone] Merchandise Examiner: Yelena Greco MD BUN/CRE Ratio 20 Normal 9-20 [facility] Comment on above: Performed By: #### F EBC #### [facility] [address] [place] [address] Merchandise Examiner: Osvaldo Santamaria MD #### CBC, CP #### [facility] [address] [place], [place] [phone] Merchandise Examiner: Yelena Greco MD Calcium [Mass/Vol] 9.4 mg/dL Normal 8.6-10.4 [facility] Comment on above: Performed By: #### F EBC #### [facility] [address] [place] [address] Merchandise Examiner: Osvaldo Santamaria MD #### CBC, CP #### [facility] [address] [place], [place] 0999183 Merchandise Examiner: Yelena Greco MD Chloride [Moles/Vol] 100 mmol/L Normal 98-107 [facility] Comment on above: Performed By: #### F EBC #### [address] [address] Merchandise Examiner: Osvaldo Santamaria MD #### CBC, CP #### [facility] [address] [place] [address] Merchandise Examiner: Yelena Greco MD CO2 [Moles/Vol] 28 mmol/L Normal 20-31 [facility] Comment on above: Performed By: #### F EBC #### [address] [address] Merchandise Examiner: Osvaldo Santamaria MD #### CBC, CP #### [facility] [address] [place], [place] [phone] Merchandise Examiner: Yelena Greco MD Creatinine [Mass/Vol] 0.6 mg/dL Normal 0.5-0.9 [facility] Comment on above: Performed By: #### F EBC #### [address] [place] [address] Merchandise Examiner: Osvaldo Santamaria MD #### CBC, CP #### [facility] [address] [place] [address] Merchandise Examiner: Yelena Greco MD GFR/1.73 sq M.predicted among non-blacks MDRD (S/P/Bld) [Vol rate/Area] mL/min/{1.73_m2} Normal >60 [facility] Comment on above: Result Comment: These results [...] secretion. Performed By: #### F EBC #### [address] [address] Merchandise Examiner: Osvaldo Santamaria MD #### CBC, CP #### [facility] [address] [place] [address] [place] [address] Merchandise Examiner: Yelena Greco MD Glucose [Mass/Vol] 91 mg/dL Normal 70-99 [facility] Comment on above: Performed By: #### F EBC #### [address] [address] Merchandise Examiner: Osvaldo Santamaria MD #### CBC, CP #### [facility] [address] [place] [address] [place] [address] Merchandise Examiner: Yelena Greco MD Potassium [Moles/Vol] 4.2 mmol/L Normal 3.7-5.3 [facility] Comment on above: Performed By: #### F EBC #### [address] [address] Merchandise Examiner: Osvaldo Santamaria MD #### CBC, CP #### [facility] [address] [place] [address] Merchandise Examiner: Yelena Greco MD Protein [Mass/Vol] 7.6 g/dL Normal 6.4-8.3 [facility] Comment on above: Performed By: #### F EBC #### [address] [address] Merchandise Examiner: Osvaldo Santamaria MD #### CBC, CP #### [address] [place], [place] 0163783 Merchandise Examiner: Yelena Greco MD Sodium [Moles/Vol] 136 mmol/L Normal 135-144 [facility] Comment on above: Performed By: #### F EBC #### [address] [address] Merchandise Examiner: Osvaldo Santamaria MD #### CBC, CP #### [address] [place], [place] [id number] Merchandise Examiner: Yelena Greco MD Urea nitrogen [Mass/Vol] 12 mg/dL Normal 6-20 [facility] Comment on above: Performed By: #### F EBC #### [address] [address] Merchandise Examiner: Osvaldo Santamaria MD #### CBC, CP #### [address] [place] [address] [address] Merchandise Examiner: Yelena Greco MD Iron Binding Cap.on 02-16-20 24 % Fe Saturation 25 % Normal 20-55 [facility] Comment on above: Performed By: #### F EBC #### [address] [address] Merchandise Examiner: Osvaldo Santamaria MD #### CBC, CP #### [address] [place], [place] [phone] Merchandise Examiner: Yelena Greco MD Iron [Mass/Vol] 92 ug/dL Normal 37-145 [facility] Comment on above: Performed By: #### F EBC #### [address] [address] Merchandise Examiner: Osvaldo Santamaria MD #### CBC, CP #### [address] [place] [address] Merchandise Examiner: Yelena Greco MD Total Fe Binding Cap 373 ug/dL Normal 250-450 [facility] Comment on above: Performed By: #### F EBC #### [address] [address] Merchandise Examiner: Osvaldo Santamaria MD #### CBC, CP #### [facility] [address] [place], [place] 7131783 Merchandise Examiner: Yelena Greco MD Unbound Fe Bind Cap 281 ug/dL Normal 112-347 [facility] Comment on above: Performed By: #### F EBC #### [address] [address] Merchandise Examiner: Osvaldo Santamaria MD #### CBC, CP #### [facility] [address] [place], [place] [phone] Merchandise Examiner: Yelena Greco MD Lipid Profileon 02-16-2024 Cholesterol [Mass/Vol] 245 mg/dL High 0-199 [facility] Comment on above: Result Comment: Cholesterol Guidelines: <200 Desirable 200-240 Borderline >240 Undesirable Performed By: #### L IPR #### [address] [address] Merchandise Examiner: Osvaldo Santamaria MD Cholesterol in HDL [Mass/Vol] 34 mg/dL Low >40 [facility] Comment on above: Result Comment: HDL Guidelines: <40 Undesirable 40-59 Borderline >59 Desirable Performed By: #### L IPR #### [address] [address] Merchandise Examiner: Osvaldo Santamaria MD Cholesterol in LDL [Mass/Vol] 159 mg/dL High 0-100 [facility] Comment on above: Result Comment: LDL Guidelines: <100 Desirable 100-129 Near to/above Desirable 130-159 Borderline >159 Undesirable Direct (measured) LDL and calculated LDL are not interchangeable tests. Performed By: #### L IPR #### [address] [place] [address] Merchandise Examiner: Osvaldo Santamaria MD Cholesterol in VLDL [Mass/Vol] 52 mg/dL Normal [facility] Comment on above: Performed By: #### L IPR #### [facility] [address] [place] [address] Merchandise Examiner: Osvaldo Santamaria MD Cholesterol.total/Ch olesterol in HDL [Mass ratio] 7.0 {ratio} Normal [facility] Comment on above: Performed By: #### L IPR #### [facility] [address] [place] [address] Merchandise Examiner: Osvaldo Santamaria MD Triglyceride [Mass/Vol] 259 mg/dL High <150 [facility] Comment on above: Result Comment: Triglyceride Guidelines: <150 Desirable 150-199 Borderline 200-499 High >499 Very high Based on AHA Guidelines for fasting triglyceride, April 2012. Performed By: #### L IPR #### [facility] [address] [place] [address] Merchandise Examiner: Osvaldo Santamaria MD Office Visiton 07-11-2023 Follow-up visit [id number] Vinny Downey 2000 F Date Provider Department Center 07/11/2023 RAJENDRA GUNN SAMSON [facility] Family History Problem Relation Age of Onset Anemia Mother Supraventricular tachycardia Father Hyperlipidemia Father Diabetes Sister Family Status - Relation Status Age at Mother Father Sister Level of Service:96088 [place] OFFICE/OUTPATIENT NEW MODERATE MDM 45 MINUTES Normal [facility] Office Visiton 03-20-2023 Follow-up visit [id number] Vinny Downey 2000 F Date Provider Department Center 03/20/2023 ISRAEL ULLOA SAMSON [facility] Family History Problem Relation Age of Onset Anemia Mother Supraventricular tachycardia Father Hyperlipidemia Father Diabetes Sister Family Status - Relation Status Age at Mother Father Sister Level of Service:11715 [place] OFFICE/OUTPATIENT NEW LOW MDM 30-44 MINUTES Normal [facility] US PREG BIOPHY W NON STRESSo [...] by: YELENA CARLOS Date: 2022-12-20 07:03 Normal [facility] US PREG PLACENTAon US PREG PLACENTA EXAMINATION: [...] LUIS ALFREDO GRANT Date: 2022-12-12 14:56 Normal [facility] US PREG BIOPHY W NON STRESSo n [...] LUIS ALFREDO GRANT Date: 2022-12-11 04:08 Normal [facility] US PREG GROWTHon 12-11-2022 US PREG GROWTH [...] ALFREDO GRANT Date: 2022-12-11 04:06 Normal [facility] GTT 3 HR PREGon 10-22-2022 Glucose [Mass/Vol] 98 mg/dL Normal 74-106 [facility] Comment on above: Performed By: #### G TT3P #### [facility] [address] [place] [address] Dr. Emilee Springer Glucose [Mass/Vol] 170 mg/dL Normal [facility] Comment on above: Performed By: #### G TT3P #### [facility] [address] [place] [address] Dr. Emilee Springer Glucose [Mass/Vol] 201 mg/dL Normal [facility] Comment on above: Performed By: #### G TT3P #### [facility] [address] [place] [address] Dr. Emilee Springer Glucose [Mass/Vol] 115 mg/dL Normal [facility] Comment on above: Performed By: #### G TT3P #### [facility] [address] [place] [address] Dr. Emilee Springer US PREG INCOMPLETE ANATOMYon [...] YELENA CARLOS Date: 2022-10-16 08:44 Normal [facility] CBC AUTO DIFFon 10-15-2022 BASO # 0.0 103/ul Normal 0.0-0.1 [facility] Comment on above: Performed By: #### C BC #### [facility] [address] [place] [address] Dr. Emilee Springer Basophils/100 WBC (Bld) 0.2 % Normal 0.2-2.0 [facility] Comment on above: Performed By: #### C BC #### [facility] [address] [place] [address] Dr. Emilee Springer EO # 0.1 103/ul Normal 0.0-0.7 [facility] Comment on above: Performed By: #### C BC #### [facility] [address] [place] [address] Dr. Emilee Springer Eosinophils/100 WBC (Bld) 0.8 % Critically low 0.9-7.0 [facility] Comment on above: Performed By: #### C BC #### [facility] [address] [place] [address] Dr. Emilee Springer Erythrocyte distribution width (RBC) [Ratio] 12.5 % Normal 11.0-15.0 [facility] Comment on above: Performed By: #### C BC #### [facility] [address] [place] [address] Dr. Emilee Springer Hematocrit (Bld) [Volume fraction] 29.8 % Critically low 36.0-48.0 [facility] Comment on above: Performed By: #### C BC #### [facility] [address] [place] [address] Dr. Emilee Springer Hemoglobin (Bld) [Mass/Vol] 10.0 g/dL Critically low 12.0-16.0 [facility] Comment on above: Performed By: #### C BC #### [facility] [address] [place] [address] Dr. Emilee Springer IG # 0.05 10e3/ul Critically high 0.00-0.03 [facility] Comment on above: Performed By: #### C BC #### [facility] [address] [place] [address] Dr. Emilee Springer IG % 0.5 % Normal 0.0-0.5 [facility] Comment on above: Performed By: #### C BC #### [facility] [address] [place] [address] Dr. Emilee Springer LYMPH # 1.6 103/ul Normal 1.2-3.8 [facility] Comment on above: Performed By: #### C BC #### [facility] [address] [place] [address] Dr. Emilee Springer Lymphocytes/100 WBC (Bld) 15.3 % Critically low 20.5-60.0 [facility] Comment on above: Performed By: #### C BC #### [facility] [address] [place] [address] Dr. Emilee Springer MANUAL DIFF REQ NO Normal [facility] Comment on above: Performed By: #### C BC #### [facility] [address] [place] [address] Dr. Emilee Springer MCH (RBC) [Entitic mass] 30.2 pg Normal 26.7-34.0 [facility] Comment on above: Performed By: #### C BC #### [facility] [address] [place] [address] Dr. Emilee Springer MCHC (RBC) [Mass/Vol] 33.6 g/dL Normal 29.9-35.2 [facility] Comment on above: Performed By: #### C BC #### [facility] [address] [place] [address] Dr. Emilee Springer MCV (RBC) [Entitic vol] 90.0 fL Normal 81.0-99.0 [facility] Comment on above: Performed By: #### C BC #### [facility] [address] [place] [address] Dr. Emilee Springer MONO # 0.6 103/ul Normal 0.3-0.8 [facility] Comment on above: Performed By: #### C BC #### [facility] [address] [address] [address] Emilee Springer Monocytes/100 WBC (Bld) 5.8 % Normal 1.7-12.0 [facility] Comment on above: Performed By: #### C BC #### [facility] [address] [address] [address] Emilee Springer NEUT # 8.2 103/ul Critically high 1.4-6.5 [facility] Comment on above: Performed By: #### C BC #### [facility] [address] [place] [address] Dr. Emilee Springer Neutrophils/100 WBC (Bld) 77.4 % Critically high 43.0-75.0 [facility] Comment on above: Performed By: #### C BC #### [facility] [address] [place] [address] Dr. Emilee Springer Platelet mean volume (Bld) [Entitic vol] 8.5 fL Critically low 9.5-13.5 [facility] Comment on above: Performed By: #### C BC #### [facility] [address] [place] [address] Dr. Emilee Springer PLT 347 103/ul Normal 150-450 [facility] Comment on above: Performed By: #### C BC #### [facility] [address] [place] [address] Dr. Emilee Springer RBC 3.31 106/ul Critically low 4.20-5.40 [facility] Comment on above: Performed By: #### C BC #### [facility] [address] [place] [address] Dr. Emilee Springer WBC 10.6 103/ul Normal 4.0-11.0 [facility] Comment on above: Performed By: #### C BC #### [facility] [address] [place] [address] Dr. Emilee Springer GLUCOSE - 1HRon 10-15-2022 Glucose [Mass/Vol] 176 mg/dL Critically high 74-106 [facility] Comment on above: Performed By: #### G LU1HR #### [facility] [address] [address] [address] Emilee Springer CHLAMYDIA/GONOCOCCUS ANISA (SW AB/URINE/PAPon 09-15-2022 Chlamydia trachomatis, ANISA Negative Normal Negative [facility] Comment on above: Performed By: #### C BC #### [facility] [address] [place] [address] Dr. Emilee Springer Neisseria gonorrhoeae, ANISA Negative Normal Negative [facility] Comment on above: Performed By: #### C BC #### [facility] [address] [place] [address] Dr. Emilee Springer VAGINITIS/VAGINOSIS DNA PROB Leonid 09-14-2022 Ainsley species Negative Normal Negative [facility] Comment on above: Performed By: #### C BC #### [facility] [address] [place] [address] Dr. Emilee Springer Gardnerella vaginalis Negative Normal Negative [facility] Comment on above: Performed By: #### C BC #### [facility] [address] [place] [address] Dr. Emilee Springer Trichomonas vaginalis Negative Normal Negative [facility] Comment on above: Performed By: #### C BC #### [facility] [address] [place] [address] Dr. Emilee Springer US PREG ANATOMY SINGLEon [...] ALFREDO GRANT Date: 2022-09-13 16:57 Normal [facility] AFP MATERNAL FOR SPINA BIFID Aon 08-31-2022 AFP MoM 0.42 Normal [facility] Comment on above: Performed By: #### A FPMAT #### [facility] [address] [address] [address] Emilee Springer AFP Value 16.7 ng/mL Normal [facility] Comment on above: Performed By: #### A FPMAT #### [facility] [address] [address] [address] Emilee Springer AFP, Serum for Spina Bifida Report Normal [facility] Comment on above: Performed By: #### A FPMAT #### [facility] [address] [address] [address] Emilee Springer Comment Comment Normal [facility] Comment on above: Result Comment: Darío Machado, Ph.D., [facility] Director . References: Available Upon Request. . Multiples Of Median Cutoffs For AFP Elevations Berkowitz 2.5 Black 2.8 IDD 2.0 Twins 4.5 Abbreviation Definitions IDD - Insulin Dep Diabetes OSBR - Open Spina Bifida Risk . For further inquiries contact [employer] at [phone]. . This test was developed and its performance characteristics determined by [employer]. It has not been cleared or approved by the Food and Drug Administration. Performed By: #### A FPMAT #### [facility] [address] [address] [address] Emilee Springer Gest Age Collection Date 18.6 weeks Normal [facility] Comment on above: Performed By: #### A FPMAT #### [facility] [address] [place] [address] Dr. Emilee Springer Gestat, Age Based on JOCELIN [facility] Comment on above: Result Comment: 12/2022 Recalculations are not recommended when gestational dating by LMP and ultrasound are within 10 days. Performed By: #### A FPMAT #### [facility] [address] [place] [address] Dr. Emilee Springer Insulin Dep Diabetes Comment Normal [facility] Comment on above: Result Comment: Not provided. . Performed By: #### A FPMAT #### [facility] [address] [place] [address] Dr. Emilee Springer Interpretation Comment Normal [facility] Comment on above: Result Comment: Inte rpretation: [...] Customer Services to discuss available options. The [employer] recommends amniocentesis be offered to women age 35 and older. Performed By: #### A FPMAT #### [facility] [address] [place] [address] Dr. Emilee Springer [age] Normal [facility] Comment on above: Performed By: #### A FPMAT #### [facility] [address] [place] [address] Dr. Emilee Springer Multiple Gestation Comment Normal [facility] Comment on above: Result Comment: Not provided. . Performed By: #### A FPMAT #### [facility] [address] [place] [address] Dr. Emilee [place] [address] Normal [facility] Comment on above: Performed By: #### A FPMAT #### [facility] [address] [place] [address] Dr. Emilee Springer PDF . Normal [facility] Comment on above: Performed By: #### A FPMAT #### [facility] [address] [place] [address] Dr. Emilee Springer Race Comment Normal [facility] Comment on above: Result Comment: Not provided. . Performed By: #### A FPMAT #### [facility] [address] [place] [address] Dr. Emilee Springer Test Results: Negative Normal [facility] Comment on above: Performed By: #### A FPMAT #### [facility] [address] [place] [address] Dr. Emilee Springer Rubella antibody, IgGon Rubella virus IgG Ql (S) 314.5 IU/mL [facility] Comment on above: REFERENCE RANGE: <5.0 NON-REACTIVE (non-immune) 5.0 TO 9.9 EQUIVOCAL >=10.0 REACTIVE (immune) [facility] HEP B SURFACE ANTIGEN SCREEN on 07-05-2022 HBsAg Screen Negative Normal Negative [facility] Comment on above: Performed By: #### H BSANS #### [facility] [address] [place] [address] Dr. Emilee Springer HEPATITIS C VIRUS AB W/ REFL EX QUANTon 07-05-2022 HCV AB <0.1 Normal 0.0-0.9 [facility] Comment on above: Performed By: #### H CVPCRR #### [facility] [address] [place] [address] Dr. Emilee Springer Interpretation: Comment Normal [facility] Comment on above: Result Comment: Nega tive Not infected with HCV, unless recent infection is suspected or other evidence exists to indicate HCV infection. Performed By: #### H CVPCRR #### [facility] [address] [place] [address] Dr. Emilee Springer HIV 1 AND 2 WITH REFLEXon HIV Screen 4th Generation wRfx Non-Reactive Normal Non Reactive [facility] Comment on above: Result Comment: HIV Negative HIV-1/HIV-2 antibodies and HIV-1 p24 antigen were NOT detected. There is no laboratory evidence of HIV infection. Performed By: #### C BC #### [facility] [address] [place] [address] Dr. Emilee Springer RPR QUANTon 07-05-2022 Rapid Plasma Reagin, Quant Non-Reactive Normal NonRea<1:1 [facility] Comment on above: Result Comment: Plea se Note: This test does not meet current guidelines for screening and diagnosis of syphilis. This test is intended for following treatment response in patients being treated for syphilis infection. To screen for syphilis infection, a reflex cascade that includes both RPR and a treponema-specific assay should be utilized, such as Treponema pallidum (Syphilis) Screening [place] (476691) or Rapid Plasma Reagin (RPR) Test With Reflex to Quantitative RPR and Confirmatory Treponema pallidum Antibodies (157088). Performed By: #### C BC #### [facility] [address] [place] [address] Dr. Emilee Springer RUBELLA AB IGGon 07-05-2022 Rubella Antibodies, IgG 5.03 index Normal Immune >0.99 [facility] Comment on above: Result Comment: Non- immune <0.90 Equivocal 0.90 - 0.99 Immune >0.99 Performed By: #### R UBIGG #### [facility] [address] [place] [address] Dr. Emilee Springer CBC AUTO DIFFon 07-04-2022 BASO # 0.0 103/ul Normal 0.0-0.1 [facility] Comment on above: Performed By: #### G LU1HR #### [facility] [address] [place] [address] Dr. Emilee Springer Basophils/100 WBC (Bld) 0.2 % Normal 0.2-2.0 [facility] Comment on above: Performed By: #### G LU1HR #### [facility] [address] [place] [address] Dr. Emilee Springer EO # 0.1 103/ul Normal 0.0-0.7 [facility] Comment on above: Performed By: #### G LU1HR #### [facility] [address] [place] [address] Dr. Emilee Springer Eosinophils/100 WBC (Bld) 0.9 % Normal 0.9-7.0 [facility] Comment on above: Performed By: #### G LU1HR #### [facility] [address] [place] [address] Dr. Emilee Springer Erythrocyte distribution width (RBC) [Ratio] 11.9 % Normal 11.0-15.0 [facility] Comment on above: Performed By: #### G LU1HR #### [facility] [address] [place] [address] Dr. Emilee Springer Hematocrit (Bld) [Volume fraction] 32.9 % Critically low 36.0-48.0 [facility] Comment on above: Performed By: #### G LU1HR #### [facility] [address] [place] [address] Dr. Emilee Springer Hemoglobin (Bld) [Mass/Vol] 11.6 g/dL Critically low 12.0-16.0 [facility] Comment on above: Performed By: #### G LU1HR #### [facility] [address] [place] [address] Dr. Emilee Springer IG # 0.03 10e3/ul Normal 0.00-0.03 [facility] Comment on above: Performed By: #### G LU1HR #### [facility] [address] [place] [address] Dr. Emilee Springer IG % 0.3 % Normal 0.0-0.5 [facility] Comment on above: Performed By: #### G LU1HR #### [facility] [address] [place] [address] Dr. Emilee Springer LYMPH # 2.1 103/ul Normal 1.2-3.8 [facility] Comment on above: Performed By: #### G LU1HR #### [facility] [address] [place] [address] Dr. Emilee Springer Lymphocytes/100 WBC (Bld) 20.2 % Critically low 20.5-60.0 [facility] Comment on above: Performed By: #### G LU1HR #### [facility] [address] [place] [address] Dr. Emilee Springer MANUAL DIFF REQ NO Normal [facility] Comment on above: Performed By: #### G LU1HR #### [facility] [address] [place] [address] Dr. Emilee Springer MCH (RBC) [Entitic mass] 31.4 pg Normal 26.7-34.0 [facility] Comment on above: Performed By: #### G LU1HR #### [facility] [address] [place] [address] Dr. Emilee Springer MCHC (RBC) [Mass/Vol] 35.3 g/dL Critically high 29.9-35.2 [facility] Comment on above: Performed By: #### G LU1HR #### [facility] [address] [place] [address] Dr. Emilee Springer MCV (RBC) [Entitic vol] 89.2 fL Normal 81.0-99.0 [facility] Comment on above: Performed By: #### G LU1HR #### [facility] [address] [place] [address] Dr. Emilee Springer MONO # 0.7 103/ul Normal 0.3-0.8 [facility] Comment on above: Performed By: #### G LU1HR #### [facility] [address] [place] [address] Dr. Emilee Springer Monocytes/100 WBC (Bld) 7.0 % Normal 1.7-12.0 [facility] Comment on above: Performed By: #### G LU1HR #### [facility] [address] [place] [address] Dr. Emilee Springer NEUT # 7.5 103/ul Critically high 1.4-6.5 [facility] Comment on above: Performed By: #### G LU1HR #### [facility] [address] [address] [address] Emilee Springer Neutrophils/100 WBC (Bld) 71.4 % Normal 43.0-75.0 [facility] Comment on above: Performed By: #### G LU1HR #### [facility] [address] [address] [address] Emilee Springer Platelet mean volume (Bld) [Entitic vol] 9.1 fL Critically low 9.5-13.5 [facility] Comment on above: Performed By: #### G LU1HR #### [facility] [address] [place] [address] Dr. Emilee Springer PLT 311 103/ul Normal 150-450 [facility] Comment on above: Performed By: #### G LU1HR #### [facility] [address] [place] [address] Dr. Emilee Springer RBC 3.69 106/ul Critically low 4.20-5.40 [facility] Comment on above: Performed By: #### G LU1HR #### [facility] [address] [place] [address] Dr. Emilee Springer WBC 10.5 103/ul Normal 4.0-11.0 [facility] Comment on above: Performed By: #### G LU1HR #### [facility] [address] [place] [address] Dr. Emilee Springer CULTURE URINEon 07-04-2022 CULTURE URINE Culture Observations: LIGHT GROWTH OF MIXED GENITAL BREN. NO POTENTIAL PATHOGENS SEEN. Normal [facility] Comment on above: Performed By: #### G LU1HR #### [facility] [address] [place] [address] Dr. Emilee Springer GLYCOHEMOGLOBIN A1Con 2021 ADA RECOMMENDATION SEE BELOW Normal [facility] Comment on above: Result Comment: ADA RECOMMENDED LIMIT 4.0 - 6.0 ADA THERAPEUTIC TARGET < 7.0 ACTION SUGGESTED > 7.0 Performed By: #### A 1C #### [facility] [address] [address] [address] Emilee Springer Glucose [Mass/Vol] 108 mg/dL Normal [facility] Comment on above: Performed By: #### A 1C #### [facility] [address] [address] [address] Emilee Springer HbA1c (Bld) [Mass fraction] 5.4 % Normal 4.5-6.2 [facility] Comment on above: Performed By: #### A 1C #### [facility] [address] [address] [address] Emilee Springer ALLEN BOX TEST PT SEND OUTo n 07-04-2022 SENT TO REF LAB 07/04/2022 Normal [facility] Comment on above: Performed By: #### N BOX #### [facility] [address] [place] [address] Dr. Emilee Springer TYPE AND SCREENon 07-04-2022 TYPE AND SCREEN Negative Normal [facility] Comment on above: Performed By: #### G LU1HR #### [facility] [address] [place] [address] Dr. Emilee Springer US PREG TVon 06-23-2022 [...] YELENA CARLOS Date: 2022-06-23 17:00 Normal [facility] HCG, Quantitative, on 06-02-2022 hCG Quant [id number] High NINF [facility] Comment on above: Non-preg premeno <=5 Postmeno <=8 Male <=3 If HCG results do not concur with clinical observations, additional testing to confirm results is recommended. Interpretation and review of laboratory results Abnormal [facility] PAP ACOG PANEL 2: 21 to 29on 04-24-2022 . . Normal [facility] Comment on above: Performed By: #### 4 [id number] #### [facility] [address] [place] [address] Dr. Emilee Springer Age Gdln ACOG Testing 21-29 Normal [facility] Comment on above: Performed By: #### 4 [id number] #### [facility] [address] [address] [address] Emilee Springer DIAGNOSIS: Comment [facility] Comment on above: Result Comment: NEGA TIVE FOR INTRAEPITHELIAL LESION OR MALIGNANCY. CELLULAR CHANGES ASSOCIATED WITH INFLAMMATION ARE PRESENT. Performed By: #### 4 [id number] #### [facility] [address] [place] [address] Dr. Emilee Springer Methodology: Comment [facility] Comment on above: Result Comment: This liquid based ThinPrep(R) pap test was screened with the use of an image guided system. Performed By: #### 4 [id number] #### [facility] [address] [place] [address] Dr. Emilee Springer Note: Comment [facility] Comment on above: Result Comment: The Pap smear is a screening test designed to aid in the detection of premalignant and malignant conditions of the uterine cervix. It is not a diagnostic procedure and should not be used as the sole means of detecting cervical cancer. Both false-positive and false-negative reports do occur. . Performed By: #### 4 [id number] #### [facility] [address] [place] [address] Dr. Emilee Springer Performed by: Comment Normal [facility] Comment on above: Result Comment: Maynor [employer], [employer] Performed By: #### 4 [id number] #### [facility] [address] [place] [address] Dr. Emilee Springer Reflex Criteria: Comment [facility] Comment on above: Result Comment: The HPV DNA reflex criteria were not met with this specimen result therefore, no HPV testing was performed. . Performed By: #### 4 [id number] #### [facility] [address] [place], [place] [address] Dr. Emilee Springer Specimen adequacy: Comment Normal [facility] Comment on above: Result Comment: Sati sfactory for evaluation. Endocervical and/or squamous metaplastic cells (endocervical component) are present. Performed By: #### 4 [id number] #### [facility] [address] [place], [place] [address] Dr. Emilee Springer HCG, Quantitative, on 08-10-2021 hCG Quant 45 High <5 IU/L [facility] Comment on above: Non-preg premeno <=5 Postmeno <=8 Male <=3 If HCG results do not concur with clinical observations, additional testing to confirm results is recommended. Elevated results not associated with may be found in patients with other diseases such as tumors of the germ cells (testis, ovaries, etc.), bladder, pancreas, stomach, lungs, and liver. Interpretation and review of laboratory results Abnormal [facility] US RENAL COMPLETEOrdered By: Lorena Ricks on 11-25-2020 Unremarkable ultrasound of the kidneys and urinary bladder. [employer] Phone: EXAMINATION: RETROPERITONEAL ULTRASOUND OF THE KIDNEYS AND URINARY BLADDER 11/25/2020 COMPARISON: None HISTORY: ORDERING SYSTEM PROVIDED HISTORY: Frequent UTI TECHNOLOGIST PROVIDED HISTORY: This procedure can be scheduled via Noknoker. Access your Noknoker account by visiting [email or web address]. FINDINGS: Kidneys: The right kidney measures 11.1 cm in length and the left kidney measures 11.6 cm in length. Kidneys demonstrate normal cortical echogenicity. No evidence of hydronephrosis or intrarenal stones. Bladder: Unremarkable appearance of the bladder. No significant post void residual. [employer] Phone: [place], Mhpn Incoming Radiant Results From [facility] - 11/25/2020 3:59 PM EDT EXAMINATION: RETROPERITONEAL ULTRASOUND OF THE KIDNEYS AND URINARY BLADDER 11/25/2020 COMPARISON: None HISTORY: ORDERING SYSTEM PROVIDED HISTORY: Frequent UTI TECHNOLOGIST PROVIDED HISTORY: This procedure can be scheduled via AdviceIQt. Access your Noknoker account by visiting [email or web address]. FINDINGS: Kidneys: The right kidney measures 11.1 cm in length and the left kidney measures 11.6 cm in length. Kidneys demonstrate normal cortical echogenicity. No evidence of hydronephrosis or intrarenal stones. Bladder: Unremarkable appearance of the bladder. No significant post void residual. IMPRESSION: Unremarkable ultrasound of the kidneys and urinary bladder. [employer] Work Phone: [employer] 10-14-2020 Forms [id number]# 1.00CD:127 Normal [facility] Ambulatory Clinical Summaryo n 10-13-2020 Ambulatory Clinical Summary {[id number]}CD:[id number] Normal [facility] General Surgery Office/Clini c Noteon 10-13-2020 General Surgery Office/Clinic Note Chief Complaint post operative follow up HPI Staff 8 day post operative follow up post lap appendectomy completed while in-patient at [facility]. Doing well. Minimal discomfort. Taking [...] available Patient Education Exercise to Lose Weight, Ywgs-er-[id number] Problem List/Past Medical History Ongoing Acute appendicitis [...] Family History Family history is negative Normal [facility] Comment on above: Result Comment: Elec [...] Document Reviewed: 08/12/2011 ExitCare? Patient Information ?2014 [place]. [facility] Provider Letter FTon 10-13 Provider Letter [facility] October 13, 2020 VINNY VERMA [address] [place] [address] VINNY VERMA 2000 To Whom It May Concern, Please excuse above patient from work 10/14/20. Sincerely, Dr. Sushant Lott MD General Surgery [facility] Pathology Noteon 10-08-2020 Pathology Note [id number] #1.00CD:127 Normal [facility] Facesheeton 10-07-2020 Facesheet [id number]#1.00CD:127 Normal [facility] Operative Reporton Operative Report [id number]# 1.00CD:127 Normal [facility] HIV Screenon 05-05-2020 HIV Ag/Ab NONREACTIVE NONREACTIVE [place], [place] Comment on above: No laboratory eviden ce of HIV infection. If acute HIV infection is suspected, consider testing for HIV-1 RNA. Basic Metabolic Panelon 04-23 Anion gap [Moles/Vol] 11 mmol/L 9 - 17 mmol/L [place] Bun/Cre Ratio 19 [place], [place] Calcium [Mass/Vol] 9.3 mg/dL 8.6 - 10. 4 mg/dL [place] Chloride [Moles/Vol] 103 mmol/L 98 - 107 mmol/L [place] CO2 [Moles/Vol] 23 mmol/L 20 - 31 mmol/L [place] Creatinine [Mass/Vol] 0.57 mg/dL 0.5 - 0.9 mg/dL [place] GFR >60 >60 mL/min [place] GFR Non- >60 >60 mL/min [place] Glucose [Mass/Vol] 88 mg/dL 70 - 99 mg/dL [place], [place] Potassium [Moles/Vol] 4.6 mmol/L 3.7 - 5.3 mmol/L [place] Sodium [Moles/Vol] 137 mmol/L 135 - 144 mmol/L [place] Urea nitrogen [Mass/Vol] 11 mg/dL 6 - 20 mg/dL [place] CBCon 05-04-2020 Erythrocyte distribution width (RBC) [Ratio] 11.7 % Low 11.8 - 14.4 % [place] Hematocrit (Bld) [Volume fraction] 36.4 % 36.3 - 47.1 % [place] Hemoglobin (Bld) [Mass/Vol] 12.2 g/dL 11.9 - 15.1 g/dL [place] Interpretation and review of laboratory results Abnormal [place] MCH (RBC) [Entitic mass] 31.4 pg 25.2 - 33.5 pg [place] MCHC (RBC) [Mass/Vol] 33.5 g/dL 28.4 - 34.8 g/dL [place] MCV (RBC) [Entitic vol] 93.8 fL 82.6 - 102.9 fL [place] Platelet mean volume (Bld) [Entitic vol] 9.2 fL 8.1 - 13.5 fL [place] Platelets (Bld) [#/Vol] 307 10*3/uL [place] RBC (Bld) [#/Vol] 3.88 10*6/uL Low 3.95 - 5.1 1 m/uL [place] WBC (Bld) [#/Vol] 7.2 10*3/uL [place] WBC (Bld) [#/Vol] 0.0 10*3/uL 0.0 per 100 WBC M [place], [place] Metabolic Panelon 05-04-2020 GFR/1.73 sq M predicted among non-blacks MDRD (S/P/Bld) [Vol rate/Area] [place], [place] Comment on above: Stage 1: Some [...] body mass. Additional eGFR calculator available at: http://www.Groove/multiple_crcl_2012.htm TSHon 05-04-2020 TSH Qn 2.22 m[IU]/L [facility] [place] Vital Signs Date Time Vital Sign Value Performing Clinician Facility 04-03-2025 15:44-0400 Body mass index (BMI) [Ratio] 36.61 kg/m2 Regina RUIZ Work Phone: [facility] 04-03-2025 15:44-0400 Body weight 102.88 kg Regina RUIZ Work Phone: [facility] 04-03-2025 15:44-0400 Diastolic blood pressure 70 mm[Hg] Regina RUIZ Work Phone: [facility] 04-03-2025 15:44-0400 Systolic blood pressure 120 mm[Hg] Regina RUIZ Work Phone: [facility] 03-12-2025 16:08-0400 Body mass index (BMI) [Ratio] 36.12 kg/m2 Mukul Law DO Work Phone: [facility] 03-12-2025 16:08-0400 Body weight 101.52 kg Mukul Law DO Work Phone: [facility] 03-12-2025 16:08-0400 Diastolic blood pressure 70 mm[Hg] Mukul Law DO Work Phone: [facility] 03-12-2025 16:08-0400 Systolic blood pressure 100 mm[Hg] Mukul Law DO Work Phone: [facility] 02-26-2025 15:58-0400 Body mass index (BMI) [Ratio] 35.96 kg/m2 Mukul Law DO Work Phone: [facility] 02-26-2025 15:58-0400 Body weight 101.06 kg Mukul Law DO Work Phone: [facility] 02-26-2025 15:58-0400 Diastolic blood pressure 70 mm[Hg] Mukul Law DO Work Phone: [facility] 02-26-2025 15:58-0400 Systolic blood pressure 110 mm[Hg] Mukul Law DO Work Phone: [facility] 02-11-2025 14:06-0400 Body mass index (BMI) [Ratio] 34.99 kg/m2 Mukul Law DO Work Phone: [facility] 02-11-2025 14:06-0400 Body weight 98.34 kg Mukul Law DO Work Phone: [facility] 02-11-2025 14:06-0400 Diastolic blood pressure 76 mm[Hg] Mukul Law DO Work Phone: [facility] 02-11-2025 14:06-0400 Systolic blood pressure 116 mm[Hg] Mukul Law DO Work Phone: [facility] 01-15-2025 16:41-0400 Body mass index (BMI) [Ratio] 34.19 kg/m2 Mukul Law DO Work Phone: [facility] 01-15-2025 16:41-0400 Body weight 96.07 kg Mukul Law DO Work Phone: [facility] 01-15-2025 16:41-0400 Diastolic blood pressure 72 mm[Hg] Mukul Law DO Work Phone: [facility] 01-15-2025 16:41-0400 Systolic blood pressure 118 mm[Hg] Mukul Law DO Work Phone: [facility] 12-18-2024 16:15-0400 Body mass index (BMI) [Ratio] 34.22 kg/m2 Mukul Law DO Work Phone: [facility] 12-18-2024 16:15-0400 Body weight 96.16 kg Mukul Law DO Work Phone: [facility] 12-18-2024 16:15-0400 Diastolic blood pressure 70 mm[Hg] Mukul Law DO Work Phone: [facility] 12-18-2024 16:15-0400 Systolic blood pressure 116 mm[Hg] Mukul Law DO Work Phone: [facility] 11-14-2024 15:15-0400 Body mass index (BMI) [Ratio] 33.57 kg/m2 [facility] Nurse [facility] 11-14-2024 15:15-0400 Body weight 94.35 kg Noms Nurse [facility] 11-14-2024 15:15-0400 Diastolic blood pressure 74 mm[Hg] [facility]oms Nurse [facility] 11-14-2024 15:15-0400 Systolic blood pressure 122 mm[Hg] [facility] Nurse [facility] 07-15-2024 16:25-0500 Body mass index (BMI) [Ratio] 32.93 kg/m2 Mukul Law DO Work Phone: [facility] 07-15-2024 16:25-0500 Body weight 92.53 kg Mukulvicki Doziero DO Work Phone: [facility] 08-31-2022 03:06-0500 Body weight 94.[address] MUKUL FOY . [facility] Comment on above: Performed By: #### AFPMAT #### [facility] [address] [place] [address] Dr. Emilee Springer Encounters Encounter Date Encounter Type Care Provider Facility Start: 04-03-2025 End: 04-03-2025 flow sheet Regina RUIZ Work Phone: [facility] GAL Comment on above: 28 weeks gestation o f ([facility]); Third trimester ([facility]); Dizziness; Gestational diabetes mellitus (GDM), antepartum, gestational diabetes method of control unspecified ([facility]); History of miscarriage; Anemia, unspecified type; UTI symptoms Start: 04-03-2025 End: 04-03-2025 Bamboo flowsheet Regina RUIZ [facility] Start: 04-03-2025 End: 04-03-2025 Bamboo flowsheet Regina RUIZ Work Phone: [facility] Start: 03-12-2025 End: 03-12-2025 ambulatory MUKUL LAW Not Available Start: 03-12-2025 End: 03-12-2025 flow sheet Mukul Law DO Work Phone: DIANE SANTO Comment on above: 25 weeks gestation o f ([facility]); Second trimester ([facility]); Gastroesophageal reflux disease without esophagitis Start: 03-12-2025 End: 03-12-2025 Bamboo flowsheet Mukul Law DO Work Phone: DIANE [place] OBFRANCISCO Start: 03-12-2025 End: 03-12-2025 Bamboo flowsheet Mukul Law DO Work Phone: DIANE SANTO Start: 02-26-2025 End: 02-26-2025 ambulatory MUKUL LAW Not Available Start: 02-26-2025 End: 02-26-2025 flow sheet Mukul Law DO Work Phone: DIANE SANTO Comment on above: 23 weeks gestation o f ([facility]); Elevated blood sugar level; Gastroesophageal reflux disease without esophagitis Start: 02-26-2025 End: 02-26-2025 Bamboo flowsheet Mukul Law DO Work Phone: DIANE SANTO Start: 02-26-2025 End: 02-26-2025 Bamboo flowsheet Mukul Law DO Work Phone: NOM[facility] SANTO Start: 02-11-2025 End: 02-11-2025 flow sheet Mukul Law DO Work Phone: NOM[facility]zo JOHNSON Comment on above: Second trimester pre gnancy ([facility]); 20 weeks gestation of ([facility]) Start: 02-11-2025 End: 02-11-2025 ambulatory MUKUL LAW Not Available Start: 01-15-2025 End: 01-15-2025 ambulatory MUKUL LAW Not Available Start: 01-15-2025 End: 01-15-2025 flow sheet Mukul Law DO Work Phone: [facility] Comment on above: Second trimester pre gnancy ([facility]); 17 weeks gestation of ([facility]); Vaginal discharge; STD exposure; Screening, , for anatomic survey ([facility]); Gastroesophageal reflux in ([facility]); Gestational diabetes mellitus (GDM), antepartum, gestational diabetes method of control unspecified ([facility]) Start: 01-15-2025 End: 01-15-2025 Bamboo flowsheet Mukul Law DO Work Phone: [facility] Start: 01-15-2025 End: 01-17-2025 Bamboo flowsheet Mukul Law DO Work Phone: [facility] Start: 01-15-2025 End: 01-17-2025 External Result Encounter Regina RUIZ Work Phone: [facility] External Department Unsolicited Start: 01-07-2025 End: 01-07-2025 ambulatory YNES RODRIGUEZ [facility] Start: 01-07-2025 End: 01-07-2025 Subsequent hospital visit by physician Ynes Steele CNP Work Phone: [facility] Start: 12-23-2024 End: 12-23-2024 Clinisync Result Encounter Mukul Law DO Work Phone: [facility] External Department Unsolicited Start: 12-23-2024 End: 12-23-2024 Clinisync Result Encounter Mukul Law DO Work Phone: [facility] External Department Unsolicited Start: 12-20-2024 End: 12-22-2024 ambulatory YNES RODRIGUEZ [facility] Start: 12-20-2024 End: 12-22-2024 Subsequent hospital visit by physician [facility] Ultrasound Comment on above: Subchorionic hematom [...] Start: 05-20-2024 End: 05-20-2024 ambulatory YNES RODRIGUEZ [facility] Start: 05-20-2024 End: 05-20-2024 Subsequent hospital visit by physician Ynes Rodriguez CONSUMER RELATIONS COMPLAINT CLERK - HAND BRUSH FILLER Work Phone: [facility] Laboratory Comment on above: Elevated liver enzym es; Mixed hyperlipidemia Start: 03-06-2024 End: 03-08-2024 ambulatory [facility]ES [facility] Start: 02-16-2024 End: 02-16-2024 ambulatory YNES [facility] Start: 08-06-2023 End: 08-06-2023 ambulatory Facility:[facility] Start: 07-11-2023 End: 07-11-2023 ambulatory RAJENDRA [facility] Start: 03-20-2023 End: 03-20-2023 ambulatory ISRAEL [facility] Start: 12-17-2022 End: 12-17-[address] [...] Facility:H1 Start: 08-29-2022 End: 08-30-[address] MUKLU FOY . Facility:[facility] Start: 08-01-2022 End: 08-01-2022 Subsequent hospital visit by physician [facility] Start: 07-04-2022 End: 07-05-[address] MUKUL FOY . Facility:[facility] Start: 06-23-2022 End: 06-24-[address] YELENA CARLOS Facility:[facility]1 Start: 06-09-2022 End: 06-10-[address] MUKUL FOY . Facility:[facility] Start: 06-02-2022 End: 06-02-2022 Subsequent hospital visit by physician Ynes Steele CNP Work Phone: [facility] Laboratory Start: 04-18-2022 End: 04-18-[address] MUKUL FOY . Facility:[facility] Start: 09-23-2021 End: 09-27-2021 ambulatory BERTO LIVE [facility] Start: 09-08-2021 End: 09-12-2021 ambulatory [facility] Start: 08-25-2021 End: 08-29-2021 ambulatory [facility] Start: 08-19-2021 End: 08-23-2021 ambulatory [facility] Start: 08-10-2021 End: 08-10-2021 Subsequent hospital visit by physician Ynes Steele CNP Work Phone: [facility] Laboratory Comment on above: Amenorrhea Start: 11-25-2020 End: 11-27-2020 Subsequent hospital visit by physician [facility] Ultrasound Room [facility] Radiology Comment on above: Frequent UTI Start: 05-04-2020 End: 05-04-2020 Subsequent [facility] Comment on above: Encounter for screen ing for HIV; Other fatigue; Wellness examination Start: 03-03-2020 End: 03-03-2020 Subsequent hospital visit by physician Jannette Peña [facility] Laboratory Comment on above: Screening [...] in Cervix by Cyto stain Ynes Rodriguez CONSUMER RELATIONS COMPLAINT CLERK - HAND BRUSH FILLER Work Phone: Start: 05-20-2024 Lipid panel Ynes hess CONSUMER RELATIONS COMPLAINT CLERK - HAND BRUSH FILLER Work Phone: Start: 05-20-2024 Comprehensive metabo lic panel Ynes Rodriguez CONSUMER RELATIONS COMPLAINT CLERK - HAND BRUSH FILLER Work Phone: Start: 07-15-2023 Microscopic observat ion [Identifier] in Cervix by Cyto stain [facility] Start: 08-01-2022 Antibody rubella Fran Barroso CONSUMER RELATIONS COMPLAINT CLERK - HAND BRUSH FILLER Work Phone: Start: 06-02-2022 Gonadotropin chorion ic quantitative Mukul Foy MD Work Phone: Start: 08-10-2021 Gonadotropin chorion ic quantitative Berto Live CONSUMER RELATIONS COMPLAINT CLERK - CN Work Phone: Start: 11-25-2020 Us retroperitoneal r eal time w/image complete Lorena Zeng Tyshawnconrad CONSUMER RELATIONS COMPLAINT CLERK - HAND BRUSH FILLER Work Phone: Start: 05-04-2020 Antibody hiv-1&hiv-2 single result Ynes Rodriguez Work Phone: Start: 05-04-2020 Assay of thyroid sti mulating hormone tsh Ynes Rodriguez Work Phone: Start: 05-04-2020 Basic metabolic pane l calcium total Ynes Rodriguez Work Phone: Start: 05-04-2020 Blood count complete automated Ynesjose raul Rodriguez Work Phone: Start: 03-03-2020 Microscopic observat ion [Identifier] in Cervix by Cyto stain Ynes Rodriguez CONSUMER RELATIONS COMPLAINT CLERK - HAND BRUSH FILLER Work Phone: Plan of Treatment Date Care Activity Detail Author Start: 07-15-2027 Screening for malign ant neoplasm of cervix Pap smear [facility] Start: 07-15-2026 Screening for malign ant neoplasm of cervix Pap smear [facility] Start: 08-07-2025 Depression Screen Depression Screen [facility] Start: 07-28-2025 End: 07-28-2025 Patient encounter procedure [facility] Start: 05-20-2025 Lipid panel Lipids [facility] Start: 05-14-2025 End: 05-14-2025 Patient encounter procedure 05/14/2025 11:40 AM EDT Office Visit [facility] [address] [place] [address] Dr [address] [place] [address] Ynes Rodriguez, CONSUMER RELATIONS COMPLAINT CLERK - HAND BRUSH FILLER [address] [place] [address] 6 month f/u [facility] Comment on above: 6 month f/u Start: 04-14-2025 End: 04-14-2025 Patient encounter procedure 04/14/2025 3:20 PM EDT Routine [facility] [address] [place] [address] [place] [id number] Regina Barton PA [address] [place] [address] DIANE SANTO Start: 04-03-2025 End: 04-03-2025 Patient encounter procedure 04/03/2025 3:30 PM EDT Routine DIANE SANTO [address] [place] [address] Regina Barton, PA [address] [place] [address] DIANE SANTO Start: 04-03-2025 End: 04-03-2026 CBC W Auto Differential panel - Blood CBC and differential Lab Routine Dizziness Anemia, unspecified type Expected: 04/03/2025 (Approximate), Expires: 04/03/2026 [facility] Comment on above: Expected: 04/03/2025 (Approximate), Expires: 04/03/2026 Start: 04-03-2025 End: 10-01-2025 US biophysical profile w non stress test US biophysical profile w non stress test Imaging Routine 28 weeks gestation of ([facility]) Third trimester ([facility]) Gestational diabetes mellitus (GDM), antepartum, gestational diabetes method of control unspecified ([facility]) History of miscarriage Expected: 04/03/2025 (Approximate), Expires: 10/01/2025 [facility] Comment on above: Expected: 04/03/2025 (Approximate), Expires: 10/01/2025 Start: 04-03-2025 End: 08-03-2025 US for US OB follow up transabdominal approach Imaging Routine 28 weeks gestation of ([facility]) Third trimester ([facility]) Gestational diabetes mellitus (GDM), antepartum, gestational diabetes method of control unspecified ([facility]) History of miscarriage Expected: 04/03/2025, Expires: 08/03/2025 [facility] Work Phone: Comment on above: Expected: 04/03/2025 , Expires: 08/03/2025 Start: 03-24-2025 Influenza vaccination N [facility] Start: 02-21-2025 Influenza vaccination Flu vacc ine (Season Ended) Anthony Odonnell [facility] Start: 02-11-2025 End: 02-11-2025 Patient encounter procedure 02/11/2025 2:10 PM EDT Routine [facility] [address] [facility] [place] [address] Mukul Foy, DO [address] [place] [address] [facility] Start: 02-11-2025 End: 02-11-2025 Professional / ancillary services management 02/11/2025 1:00 PM EDT Ancillary Procedure [facility] [address] [place] [id number] [facility] Start: 01-15-2025 End: 01-15-2025 Patient encounter procedure 01/15/2025 3:50 PM EDT Routine [facility] [address] [place] [address] Mukul Foy, DO [address] [place] [address] [facility] Start: 01-15-2025 End: 07-17-2025 Alpha fetoprotein, maternal Alpha fetoprotein, maternal Lab Routine Second trimester ([facility]) 17 weeks gestation of ([facility]) Expected: 01/15/2025 (Approximate), Expires: 07/17/2025 [facility] Comment on above: Expected: 01/15/2025 (Approximate), Expires: 07/17/2025 Start: 01-15-2025 End: 04-17-2025 US for US OB 14+ weeks anatomy scan Imaging Routine Screening, , for anatomic survey ([facility]) Expected: 01/15/2025, Expires: 04/17/2025 [facility] Comment on above: Expected: 01/15/2025 , Expires: 04/17/2025 Start: 12-18-2024 End: 12-18-2024 Patient encounter procedure 12/18/2024 3:40 PM EDT Routine [facility] [address] [place] [id number] Mukul Foy, DO [address] [place] [address] [facility] Start: 12-18-2024 End: 12-18-2025 CBC panel - Blood by Automated count CBC Lab Routine Diabetes mellitus screening Expected: 12/18/2024 (Approximate), Expires: 12/18/2025 [facility] Work Phone: Comment on above: Expected: 12/18/2024 (Approximate), Expires: 12/18/2025 Start: 12-18-2024 End: 12-18-2025 Measurement of glucose 1 hour after glucose challenge for glucose tolerance test Glucose tolerance, 1 hour Lab Routine Diabetes mellitus screening Expected: 12/18/2024 (Approximate), Expires: 12/18/2025 [facility] Comment on above: Expected: 12/18/2024 [...] gestational age Expected: 11/14/2024 (Approximate), Expires: 11/14/2025 [facility] Comment on above: Expected: 11/14/2024 (Approximate), Expires: 11/14/2025 Start: 11-14-2024 End: 11-14-2025 Blood type and Indirect antibody screen panel - Blood Type and screen Lab Routine Missed menses , unspecified gestational age Expected: 11/14/2024 (Approximate), Expires: 11/14/2025 [facility] Comment on above: Expected: 11/14/2024 (Approximate), Expires: 11/14/2025 Start: 11-14-2024 End: 11-14-2025 Drugs of abuse panel - Urine by Screen method Rapid drug screen, urine Lab Routine , unspecified gestational age Encounter for supervision of normal first in first trimester Expected: 11/14/2024 (Approximate), Expires: 11/14/2025 [facility] Comment on above: Expected: 11/14/2024 (Approximate), Expires: 11/14/2025 Start: 11-06-2024 End: 02-05-2025 US Pelvis transvaginal US OB transvaginal Imaging Routine Missed menses Expected: 11/06/2024, Expires: 02/05/2025 [facility] Work Phone: Comment on above: Expected: 11/06/2024 , Expires: 02/05/2025 Start: 10-16-2024 End: 10-16-2024 Patient encounter procedure 10/16/2024 1:40 PM EDT Office Visit [facility] [address] [place] [address] [address] [place] [address] Ynes Rodriguez, CONSUMER RELATIONS COMPLAINT CLERK - HAND BRUSH FILLER [address] [place] [address] Dr [address] [place] [address] Wellness [facility] Comment on above: Wellness Start: 08-03-2024 Depression Screen Depression Screen [facility] Start: 06-04-2024 End: 06-04-2024 Patient encounter procedure 06/04/2024 11:45 AM EST Office Visit [facility] [address] [place] [address] [address] [place] [address] Jose Cruz Raza MD [address] [place] [address] [address] [place] [address] wt management [facility] Comment on above: wt management Start: 05-22-2024 End: 05-22-2024 Patient encounter procedure 05/22/2024 11:00 AM EDT Office Visit [facility] [address] [place] [address] Ynes Rodriguez, CONSUMER RELATIONS COMPLAINT CLERK - HAND BRUSH FILLER [address] [place] [address] LFT + HLD f/u(RS 10/17/23 appt) [facility] Comment on above: LFT + HLD f/u(RS 09/22 01/14 appt) Start: 03-24-2024 COVID-19 Vaccine ( season) COVID-19 Vaccine ( season) [facility] Start: 03-24-2024 COVID-19 Vaccine ( season) COVID-19 Vaccine () [facility] Start: 03-24-2024 Influenza vaccination Influenza Vacc ine (#1) [facility] Start: 02-22-2024 Influenza vaccination Flu vaccine (# 1) [facility] Start: 03-03-2023 Screening for malign ant neoplasm of cervix [facility] Start: 11-09-2022 Depression Screen Depression Screen [facility] Start: 07-11-2022 End: 07-11-2022 Patient encounter procedure 07/11/2022 Office Visit Primary Care Ynes Rodriguez, CONSUMER RELATIONS COMPLAINT CLERK - HAND BRUSH FILLER [address] [place] [address] [facility] Start: 05-19-2022 End: 05-19-2022 Patient encounter procedure 05/19/2022 Office Visit Obstetrics and Gynecology Berto Live, JOSE J - CNM [address] [place], [place] [id number] [facility] OBSTETRICS & GYNECOLOGY [facility] Start: 03-18-2022 End: 03-18-2022 Patient encounter procedure 03/18/2022 Office Visit Family Medicine Ynes Rodriguez, CONSUMER RELATIONS COMPLAINT CLERK - HAND BRUSH FILLER [address] [place] [address] [facility] Start: 03-12-2022 Hepatitis C screening Hepatitis C sc [facility] Comment on above: Postponed from 09/09 (Patient Refused) Start: 02-21-2022 Influenza vaccination Flu vaccine (# 1) [facility] Start: 11-19-2021 Screening for Chlamy carlton trachomatis [facility] Start: 09-24-2021 Influenza vaccination Flu vacc ine (Season Ended) [facility] Work Phone: Comment on above: Postponed from 03/24 (Patient Refused) Start: 08-17-2021 Depression Monitoring Depression [facility] Start: 06-30-2021 COVID-19 Vaccine (3 - Booster for Pfizer series) COVID-19 Vaccine (3 - Booster for Pfizer series) [facility] Start: 06-19-2021 DTaP/Tdap/Td vaccine (7 - Td or Tdap) DTaP/Tdap/Td vaccine (7 - Td or Tdap) [facility] Start: 06-19-2021 DTaP/Tdap/Td vaccine (7 - Td) DTaP/Tdap/Td vaccine (7 - Td) [place], [place] Start: 03-24-2021 Influenza vaccination Flu vaccine (# 1) [facility] Start: 03-03-2021 Screening for Chlamy carlton trachomatis Chlamydia screen [place], [place] Start: 02-23-2021 COVID-19 Vaccine (3 - Booster for Pfizer series) COVID-19 Vaccine (3 - Booster for Pfizer series) [facility] Start: 02-09-2021 End: 02-09-2021 Patient encounter procedure 02/09/2021 Office Visit Family Medicine Ynes Rodriguez, CONSUMER RELATIONS COMPLAINT CLERK - HAND BRUSH FILLER [address] [place] [address] [phone] [facility] Start: 11-30-2020 End: 11-30-2020 Patient encounter procedure 11/30/2020 Office Visit Urology Chris Moe MD [address], [address] [place] [address] [phone] [facility] UROLOGY [facility] Start: 05-28-2020 End: 05-28-2020 Telemedicine 05/28/2020 Telemedicine Family Medicine Ynes Rodriguez, CONSUMER RELATIONS COMPLAINT CLERK - HAND BRUSH FILLER [address] [place], [place] [id number] [facility] FAMILY MEDICINE [facility] Start: 03-24-2020 Influenza vaccination Flu vaccine (# 1) [place], [place] Start: 02-22-2020 Screening for Chlamy carlton trachomatis Chlamydia screen [place], [place] Start: 2019 Screening for malign ant neoplasm of cervix Cervical cancer screen [place], [place] Start: 2016 Hepatitis C screening Hepatitis C [facility] Start: 2014 COVID-19 Vaccine (1) COVID-19 Vaccin e (1) [facility] Phone: Start: 2013 HIV screening HIV screen [place], [place] Start: 1998 [facility]atitis [facility] Bacteria identified in Urine by Culture Urine culture Microbiology Routine Missed menses Ordered: 11/14/2024 [facility] Comment on above: Ordered: 11/14/2024 Bacteria identified in Urine by Culture Urine culture Microbiology Routine UTI symptoms Ordered: 04/03/2025 [facility] Comment on above: Ordered: 04/03/2025 End: 03-03-2020 C.trachomatis N.gonorrhoeae DNA, Thin Prep C.trachomatis N.gonorrhoeae DNA, Thin Prep Microbiology Routine Encounter for annual routine gynecological examination 1 Occurrences starting 03/03/2020 until 03/03/2020 [place], [place] Comment on above: 1 Occurrences starti ng 03/03/2020 until 03/03/2020 C.trachomatis N.gonorrhoeae DNA, Thin Prep C.trachomatis N.gonorrhoeae DNA, Thin Prep Microbiology Routine Encounter for annual routine gynecological examination 03/03/2020 5:08 PM [facility] W Auto Different ial panel - Blood CBC and differential Lab Routine Missed menses , unspecified gestational age Ordered: 11/14/2024 [facility] Comment on above: Ordered: 11/14/2024 CHLAMYDIA TRACHOMATI S (GENITO/STI) CHLAMYDIA TRACHOMATIS (GENITO/STI) Lab Routine STD exposure Ordered: 01/15/2025 [facility] Comment on above: Ordered: 01/15/2025 Cytology Cervical or vaginal smear or scraping study Pap Smear Pathology and Cytology Routine Well woman exam with routine gynecological exam Ordered: 07/15/2024 [facility] Work Phone: Comment on above: Ordered: 07/15/2024 End: 03-03-2020 Cytopathology procedure, preparation of smear, genital source PAP SMEAR Lab Routine Screening for cervical cancer 1 Occurrences starting 03/03/2020 until 03/03/2020 [facility] Comment on above: 1 Occurrences starti ng 03/03/2020 until 03/03/2020 Hemoglobin A1c/Hemoglobin.total in Blood Hemoglobin A1c Lab Routine Missed menses , unspecified gestational age Ordered: 11/14/2024 [facility] Comment on above: Ordered: 11/14/2024 Hepatitis B virus surface Ag [Presence] in Serum or Plasma by Immunoassay Hepatitis B surface antigen Lab Routine Missed menses , unspecified gestational age Ordered: 11/14/2024 [facility] Comment on above: Ordered: 11/14/2024 Hepatitis C virus Ab [Presence] in Serum or Plasma by Immunoassay Hepatitis C antibody Lab Routine Missed menses , unspecified gestational age Ordered: 11/14/2024 [facility] Comment on above: Ordered: 11/14/2024 HIV-1/HIV-2 antigen/antibody combination immunoassay HIV-1 and HIV-2 antibodies Lab Routine Missed menses , unspecified gestational age Ordered: 11/14/2024 [facility] Comment on above: Ordered: 11/14/2024 Neisseria gonorrhoea e DNA [Presence] in Unspecified specimen by ANISA with probe detection Neisseria gonorrhea DNA probe, direct Lab Routine STD exposure Ordered: 01/15/2025 [facility] Comment on above: Ordered: 01/15/2025 Reagin Ab [Presence] in Serum by RPR RPR Lab Routine Missed menses , unspecified gestational age Ordered: 11/14/2024 [facility] Comment on above: Ordered: 11/14/2024 Rubella antibody, IgG Rubella an tibody, IgG Lab Routine Missed menses , unspecified gestational age Ordered: 11/14/2024 [facility] Comment on above: Ordered: 11/14/2024 SURESWAB(R) ADVANCED VAGINITIS PLUS, TMA SURESWAB(R) ADVANCED VAGINITIS PLUS, TMA Pathology and Cytology Routine Vaginal discharge Ordered: 01/15/2025 [facility] Work Phone: Comment on above: Ordered: 01/15/2025 US Pelvis transvaginal US OB tra nsvaginal Imaging Routine Missed menses 11/14/2024 2:38 PM EDT [facility] End: 12-20-2024 uterus 14 wk transabdl 07/24 gestat Anthony Belle [facility] Work Phone: Comment on above: 1 Occurrences starti ng 12/20/2024 until 12/20/2024 Immunizations Immunization Date Immunization Notes Care Provider Lora canela 12-29-2020 COVID-19, Pfizer Pur ple top, DILUTE for use, 12+ yrs, 30mcg/0.3mL dose Ynes Rodriguez CONSUMER RELATIONS COMPLAINT CLERK - HAND BRUSH FILLER Work Phone: [facility] Work Phone: 12-07-2020 COVID-19, Pfizer Pur ple top, DILUTE for use, 12+ yrs, 30mcg/0.3mL dose Ynes Rodriguez CONSUMER RELATIONS COMPLAINT CLERK - HAND BRUSH FILLER Work Phone: [facility] 09-20-2017 human papilloma viru s vaccine, quadrivalent [facility], [place] 05-01-2017 human papilloma viru s vaccine, quadrivalent [facility], [place] 02-24-2017 human papilloma viru s vaccine, quadrivalent [facility], [place] 03-11-2016 meningococcal polysaccharide (groups A, C, Y and W-135) diphtheria toxoid conjugate vaccine (MCV4P) [facility], [place] 2014 meningococcal ACWY vaccine, unspecified formulation [facility], [place] 08-19-2011 Hepatitis A Ped/Adol (Vaqta) [facility], [place] 08-19-2011 hepatitis A vaccine, pediatric/adolescent dosage, 2 dose schedule Ynes Rodriguez CONSUMER RELATIONS COMPLAINT CLERK - HAND BRUSH FILLER Work Phone: [facility] Work Phone: 06-19-2011 tetanus toxoid, redu saundra diphtheria toxoid, and acellular pertussis vaccine, adsorbed [facility], [place] 02-09-2011 Hepatitis A Ped/Adol (Vaqta) [facility], [place] 02-09-2011 hepatitis A vaccine, pediatric/adolescent dosage, 2 dose schedule Ynes Fede CONSUMER RELATIONS COMPLAINT CLERK - HAND BRUSH FILLER Work Phone: [facility] Work Phone: 02-09-2011 varicella virus vaccine [facility], [place] 01-12-2011 meningococcal polysaccharide (groups A, C, Y and W-135) diphtheria toxoid conjugate vaccine (MCV4P) [facility], [place] 11-20-2003 diphtheria, tetanus toxoids and acellular pertussis vaccine [facility] 11-20-2003 measles, mumps and rubella virus vaccine [facility] 11-20-2003 poliovirus vaccine, inactivated [facility] 03-13-2000 diphtheria, tetanus toxoids and acellular pertussis vaccine [facility] 03-13-2000 haemophilus influenz ae type b vaccine, PRP-T conjugate [facility], [place] 03-13-2000 poliovirus vaccine, inactivated [facility] 12-22-1999 measles, mumps and rubella virus vaccine [facility] 12-22-1999 varicella virus vaccine [facility] [place], [place] 06-09-1999 hepatitis B vaccine, pediatric or pediatric/adolescent dosage [facility], [place] 03-12-1999 diphtheria, tetanus toxoids and acellular pertussis vaccine [facility] 03-12-1999 haemophilus influenz ae type b vaccine, PRP-T conjugate [facility], [place] 01-18-1999 diphtheria, tetanus toxoids and acellular pertussis vaccine [facility] 01-18-1999 haemophilus influenz ae type b vaccine, PRP-T conjugate [facility] 01-18-1999 poliovirus vaccine, inactivated [facility] 1998 haemophilus influenz ae type b vaccine, PRP-T conjugate [facility] 1998 poliovirus vaccine, inactivated [facility], [place] 1998 diphtheria, tetanus toxoids and acellular pertussis vaccine [facility] 1998 hepatitis B vaccine, pediatric or pediatric/adolescent dosage [facility], [place] 1998 hepatitis B vaccine, pediatric or pediatric/adolescent dosage [facility], [place] Payers Date Payer Category Payer Unknown [facility] [id number] 2022-Present [address] [place] [id number] [employer] [id number]. [id number] 2022 Private Health Insurance [employer] [id number]. [id number] 1998 Unknown [id number] 2.16.840.1.544556.3.579.2. 900 1998 Unknown [id number] 2.16.840.1.961313.3.579.2. 900 1998 Unknown [id number] 2.16.840.1.605235.3.579.2. 900 1998 Unknown [id number] 2.16.840.1.508916.3.579.2. 900 1998 Unknown [id number] 2.16.840.1.148339.3.579.2. 593 1998 Unknown [id number] 2.16.840.1.248670.3.579.2. 593 1998 Unknown [id number] 2.16.840.1.237020.3.579.2. 593 1998 Unknown [id number] 2.16.840.1.522295.3.579.2. 593 1998 Unknown [id number] 2.16.840.1.821913.3.579.2. 593 1998 Unknown [id number] 2.16.840.1.413909.3.579.2. 593 1998 Unknown [id number] 2.16.840.1.236090.3.579.2. 593 1998 Unknown [id number] 2.16.840.1.673800.3.579.2. 593 1998 Unknown [id number] 2.16.840.1.284383.3.579.2. 593 1998 Unknown [id number] 2.16.840.1.282635.3.579.2. 593 1998 Unknown [id number] 2.16.840.1.301363.3.579.2. 593 1998 Unknown [id number] 2.16.840.1.827120.3.579.2. 593 1998 Unknown [id number] 2.16.840.1.600517.3.579.2. 593 1998 Unknown [id number] 2.16.840.1.683995.3.579.2. 593 1998 Unknown [id number] 2.16.840.1.338791.3.579.2. 173 1998 Unknown [id number] 2.16.840.1.227690.3.579.2. 173 1998 Unknown [id number] 2.16.840.1.270876.3.579.2. 173 1998 Unknown [id number] 2.16.840.1.217331.3.579.2. 173 1998 Unknown [id number] 2.16.840.1.878411.3.579.2. 173 1998 Unknown [id number] 2.16.840.1.534263.3.579.2. 1259 1998 Unknown [id number] 2.16.840.1.507031.3.579.2. 1259 1998 Unknown [id number] 2.16.840.1.236717.3.579.2. 1259 1998 Unknown [id number] 2.16.840.1.412781.3.579.2. 1259 1998 Unknown [id number] 2.16.840.1.226658.3.579.2. 1259 1998 Unknown [id number] 2.16.840.1.534767.3.579.2. 1259 1998 Unknown [id number] 2.16.840.1.008577.3.579.2. 1259 1998 Unknown [id number] 2.16.840.1.240024.3.579.2. 1259 1998 Unknown [id number] 2.16.840.1.645463.3.579.2. 1259 1959 Self-pay 1959 Unknown [id number] 1.2.840.208288.1.13.239.2. 7.3.701039.315 1959 Unknown [id number] 1959 Unknown [id number] Unknown [id number] 2.16.840.1.651153.3.579.2. 593 Social History Date Type Detail Facility Start: 03-03-2020 End: 12-31-2022 Tobacco smoking status NHIS Never sm[place] Start: 03-03-2020 End: 12-31-2022 Tobacco use and exposure Never used [place] Start: 03-03-2020 End: 05-12-2021 Alcohol intake Current drinker of alcohol (finding) [place] Start: 06-19-2017 Alcohol Comment social [place], [place] Start: 1998 Sex Assigned At Not on file [place] Start: 05-01-2020 End: 03-08-2022 History SDOH Financial 5 [place] Start: 05-01-2020 End: 03-08-2022 History SDOH Food Worry 1 [place] Start: 05-01-2020 History SDOH Transpo rt Med 2 [place] Exposure to SARS-CoV -2 (event) Not sure [facility] Start: 05-01-2024 End: 11-12-2024 Alcoholic beverage intake Ex-drinker (finding) [facility] Start: 05-01-2024 End: 11-14-2024 History of Social function [facility] [employer] Start: 05-01-2024 End: 11-14-2024 [facility] How hard is it for y ou to pay for the very basics like food, housing, medical care, and heating Not hard at all [facility] [employer] (I/We) worried wheth er (my/our) food would run out before (I/we) got money to buy more. Never true Anthony [employer] Start: 1998 Sex assigned at Female B on [employer] Start: 05-20-2024 Gender identity Identifies as female gender (finding) [facility] [employer] Start: 07-05-2023 End: 04-03-2025 Alcoholic beverage intake Lifetime non-drinker (finding) [facility] Start: 09-30-2024 [facility] Has the electric, Vudu, oil, or water [employer] threatened to shut off services in your home in past 12Mo No [facility] [employer] Start: 09-02-2012 Sex Female (finding) [facility] [employer] Medical Equipment Procedure Code Equipment Code Equipment Origin al Text Equipment Identifier Dates Use as instructed [id number] Start: 01-15-2025 End: 01-15-2026 Goals Date Patient [...] Frequent UTI 11/30/2020 23 weeks gestation of ([facility]) 02/26/2025 Elevated blood sugar level 02/26/2025 Resolved Ambulatory Problems Diagnosis Date Noted Missed period 01/13/2023 Past Medical History: Diagnosis Date GDM (gestational diabetes mellitus) ([facility]) HISTORY PAST MEDICAL HISTORY SOCIAL HISTORY Past Medical History: Diagnosis Date GDM (gestational diabetes mellitus) ([facility]) Social History Tobacco Use Smoking status: Never [...] PLAN ICD-10-CM 1. 28 weeks gestation of ([facility]) Z3A.28 POCT urinalysis dipstick manually resulted US OB follow up transabdominal approach US biophysical profile w non stress test 2. Third trimester ([facility]) Z34.93 POCT urinalysis dipstick manually resulted US OB follow up transabdominal approach US biophysical profile w non stress test 3. Dizziness R42 CBC and differential CBC and differential 4. Gestational diabetes mellitus (GDM), antepartum, gestational diabetes method of control unspecified ([facility]) O24.419 US OB follow up transabdominal approach [...] of: JOSEPH Bowie documented in this encounter [facility] 03-12-2025 History of Present illness Narrative Reason [...] Frequent UTI 11/30/2020 23 weeks gestation of ([facility]) 02/26/2025 Elevated blood sugar level 02/26/2025 Resolved Ambulatory Problems Diagnosis Date Noted Missed period 01/13/2023 Past Medical History: Diagnosis Date GDM (gestational diabetes mellitus) ([facility]) No family history on file. Social History [...] nursing note reviewed. Exam conducted with a wet chemistry analyst present. Vitals: Estimated body mass index is 36.12 kg/m as calculated from the following: Height as of 01/30/23: 5' 6 . Weight as of this encounter: 223 lb 12.8 oz. BP: 100/70 Patient's last menstrual period was 09/16/2024. Assessment/Plan Encounter Diagnosis: ICD-10-CM 1. 25 weeks gestation of ([facility]) Z3A.25 POCT urinalysis dipstick manually resulted 2. Second trimester ([facility]) Z34.92 POCT urinalysis dipstick manually resulted 3. [...] Mukul Foy DO documented in this encounter [facility] 02-26-2025 History of Present illness Narrative Reason [...] Frequent UTI 11/30/2020 23 weeks gestation of ([facility]) 02/26/2025 Elevated blood sugar level 02/26/2025 Resolved Ambulatory Problems Diagnosis Date Noted Missed period 01/13/2023 Past Medical History: Diagnosis Date GDM (gestational diabetes mellitus) ([facility]) HISTORY PAST MEDICAL HISTORY SOCIAL HISTORY Past Medical History: Diagnosis Date GDM (gestational diabetes mellitus) ([facility]) Social History Tobacco Use Smoking status: Never [...] nursing note reviewed. Exam conducted with a wet chemistry analyst present. Vitals: Estimated body mass index is 35.96 kg/m as calculated from the following: Height as of 01/30/23: 5' 6 . Weight as of this encounter: 222 lb 12.8 oz. BP: 110/70 Patient's last menstrual period was 09/16/2024. ASSESSMENT & PLAN ICD-10-CM 1. 23 weeks gestation of ([facility]) Z3A.23 POCT urinalysis dipstick manually resulted pantoprazole [...] Mukul Foy DO documented in this encounter [facility] 02-11-2025 History of Present illness Narrative Reason [...] History: Diagnosis Date GDM (gestational diabetes mellitus) ([facility]) HISTORY PAST MEDICAL HISTORY SOCIAL HISTORY Past Medical History: Diagnosis Date GDM (gestational diabetes mellitus) ([facility]) Social History Tobacco Use Smoking status: Never [...] ASSESSMENT & PLAN ICD-10-CM 1. Second trimester ([facility]) Z34.92 metFORMIN XR (Glucophage-XR) 500 MG 24 hr tablet POCT urinalysis dipstick manually resulted 2. 20 weeks gestation of ([facility]) Z3A.20 metFORMIN XR (Glucophage-XR) 500 MG 24 [...] Mukul Foy DO documented in this encounter [facility] 01-15-2025 History of Present illness Narrative Reason [...] History: Diagnosis Date GDM (gestational diabetes mellitus) ([facility]) HISTORY PAST MEDICAL HISTORY SOCIAL HISTORY Past Medical History: Diagnosis Date GDM (gestational diabetes mellitus) ([facility]) Social History Tobacco Use Smoking status: Never [...] nursing note reviewed. Exam conducted with a wet chemistry analyst present. Vitals: Estimated body mass index is 34.19 kg/m as calculated from the following: Height as of 01/30/23: 5' 6 . Weight as of this encounter: 211 lb 12.8 oz. BP: 118/72 Patient's last menstrual period was 09/16/2024. ASSESSMENT & PLAN ICD-10-CM 1. Second trimester ([facility]) Z34.92 Alpha fetoprotein, maternal Alpha fetoprotein, maternal 2. 17 weeks gestation of ([facility]) Z3A.17 Alpha fetoprotein, maternal Alpha fetoprotein, maternal 3. Vaginal discharge N89.8 SURESWAB(R) ADVANCED VAGINITIS PLUS, TMA 4. STD exposure Z20.2 CHLAMYDIA TRACHOMATIS (GENITO/STI) Neisseria gonorrhea DNA probe, direct 5. Screening, , for anatomic survey ([facility]) Z36.89 US OB 14+ weeks anatomy scan 6. Gastroesophageal reflux in ([facility]) O99.619 omeprazole (PriLOSEC) [address] capsule K21.9 7. Gestational diabetes mellitus (GDM), antepartum, gestational diabetes method of control unspecified ([facility]) O24.419 glucose blood test strip Return OB/Annual [...] of: alesha bowie documented in this encounter [facility] 12-18-2024 History of Present illness Narrative Reason [...] by JOSEPH Bowie documented in this encounter [facility] 11-14-2024 History of Present illness Narrative Reason [...] Nurse Note: Patient uncertain of doing the [place] screening. Pt was advised both labs and [...] or undercooked meat, and stay away from [facility]. Patient has also been advised to [...] Elizabeth Ware MA documented in this encounter [facility] 07-15-2024 History of Present illness Narrative Reason [...] nursing note reviewed. Exam conducted with a wet chemistry analyst present. Vitals: Estimated body mass index is [...] Mukul Foy DO documented in this encounter [facility] 08-06-2023 Note HNO ID: [id number] Author: LANG CARREON APRN.HAND BRUSH FILLER Service: ? Author Type: Nurse Practitioner Type: Progress Notes Filed: 08/06/2023 10:44 Note Text: Telemedicine Visit - Distance Health Virtual Visit Note I have communicated my name and active licensure. The patient's identity and physical location were verified at the time of this visit. Either the patient or their legal branch service representative has been informed of the risks and benefits of -- and alternatives to -- treatment through a remote evaluation and consents to proceed with the evaluation remotely. Patient seen on virtual platforms, [employer]. Location of patient: [place] History of Presenting Illness: Vinny Downey 22 [...] - Sleep with head elevated due to aeuv-kbdsi-dkgo increases cough - Continue Flonase - Flonase: [...] care - All questions answered Lang Carreon APRN.[facility] 07-11-2023 Note [facility] Consult Note Reason [...] recent labs Rajendra [place] MD Cardiac Electrophysiology [facility] 07-11-2023 Note Patient here for fol [facility] up event monitor. Echo was not performed that was ordered at last apt in Feb 2023 by Israel Champion CNP. Does not notice palpitations as often. Denies chest pain, SOB, and lightheadedness. Review of Systems Cardiovascular: Positive for palpitations (less often). All other systems reviewed and are negative. [facility] 03-30-2023 Note -developed anemia po stpartum s/p -hgb 10.8 per recent labs [facility] 03-30-2023 Note - could be related t o being , anemia -monitor and echo to rule out cardiac concern [facility] 03-30-2023 Note - [facility] - 30-day event monit or - we will hold off on starting medication until follow-up [facility] 03-20-2023 Note New patient here to [...] All other systems reviewed and are negative. [facility] 03-20-2023 Note [facility] Consult Note [...] complaints of chest pain, shortness of breath, SPENECR. She does feel palpitations intermittently not necessarily [...] are attached to (more content not included)... [facility] Evaluation note Diagnosis Frequent UTI Urinary tract infection, site not specified documented in this encounter [employer] Phone: evaluation note* Diagnosis Amenorrhea Absence of menstruation documented in this encounter [employer] Phone: evaluation note* Diagnosis Elevated liver enzymes Nonspecific elevation of levels of transaminase or lactic acid dehydrogenase (LDH) Mixed hyperlipidemia documented in this encounter [facility]* Diagnosis Well woman exam with routine gynecological exam Routine gynecological examination [facility]* Diagnosis Missed menses 8 weeks gestation of , unspecified gestational age Encounter for supervision of normal first in first trimester History of miscarriage Personal history of other genital system and obstetric disorders documented in this encounter [facility]* Diagnosis Second trimester state, incidental 12 weeks gestation of Subchorionic hematoma in first trimester, single or unspecified fetus Diabetes mellitus screening Screening for diabetes mellitus documented in this encounter [facility]* Diagnosis Subchorionic hematoma, antepartum, first trimester, not applicable or unspecified fetus documented in this encounter [facility]* Diagnosis Second trimester (HHS-HCC) state, incidental 17 weeks gestation of ([facility]) Vaginal discharge Leukorrhea, not specified as infective STD exposure Screening, , for anatomic survey ([facility]) Encounter for anatomic survey Gastroesophageal reflux in ([facility]) Gestational diabetes mellitus (GDM), antepartum, gestational diabetes method of control unspecified ([facility]) documented in [facility] encounter [facility]* Diagnosis Second trimester (HHS-HCC) state, incidental 20 weeks gestation of ([facility]) documented [facility] encounter [facility]* Diagnosis 23 weeks gestation of ([facility]) Elevated blood sugar level Other abnormal glucose Gastroesophageal reflux disease without esophagitis Esophageal reflux [facility] Diagnosis 25 weeks gestation of ([facility]) Second trimester ([facility]) state, incidental Gastroesophageal reflux disease without esophagitis Esophageal reflux [facility] Diagnosis 28 weeks gestation of ([facility]) Third trimester ([facility]) state, incidental Dizziness Dizziness and giddiness Gestational diabetes mellitus (GDM), antepartum, gestational diabetes method of control unspecified ([facility]) History of miscarriage Personal history of other [...] DOPPLER US OB TRANSVAGINAL Mukul Foy MD [address] [place] [address] Phone: tel: Referral ID Status Reason Start Date Expiration Date Visits Re quested Visits Authorized [id number] Open 12/19/2024 12/19/2025 1 1 [facility] Assessments Diagnosis Screening for cervical cancer Screening for malignant neoplasm of the cervix Encounter for annual routine gynecological examination Diagnosis Encounter for screening for HIV Other fatigue Wellness examination Advance Directives Documents on File Type Date Recorded Patient Die [employer]ener Expl anation Advance Directives and Living Will Power of [employer] Salesperson Documents on File Type Date Recorded Patient [employer] Expl anation ACP-Advance Directive ACP-Power of [employer] Salesperson Documents on File Type Date Recorded Patient [employer]ener Expl anation ACP-Advance Directive ACP-Power of [employer] Salesperson Summary Purpose Family History No Family History Records FoundNo Family History Records FoundNo Family History Records FoundNo Family History Records FoundNo Family History Records FoundNo Family History Records FoundNo Family History Records Found Reason for Referral Status Reason Specialty Diagnoses / Procedures Referre d By Contact Referred To Contact Closed Radiology Diagnoses Frequent UTI Procedures US RENAL COMPLETE Lorena Ricks, CONSUMER RELATIONS COMPLAINT CLERK - HAND BRUSH FILLER [address] [place] [address] Additional Source Comments INFORMATION SOURCE (unrecogn ized section and content) DATE CREATED AUTHOR 10/14/2020 Hany Harvey [facility] DATE CREATED AUTHOR AUTHOR'S ORGANIZ ATION 09/26/[address] [facility] DATE CREATED AUTHOR AUTHOR'S ORGANIZ ATION 12/30/2022 [facility] DATE CREATED AUTHOR AUTHOR'S ORGANIZ ATION 08/03/2023 [facility] DATE CREATED AUTHOR AUTHOR'S ORGANIZ ATION 08/07/2023 [facility] DATE CREATED AUTHOR AUTHOR'S ORGANIZ ATION 01/09/2025 [facility] DATE CREATED AUTHOR AUTHOR'S ORGANIZ ATION 03/14/2025 [facility] EPIC Reason for Visit (unrecogniz ed section and content) Status Reason Specialty Diagnoses / Procedures Referre d By Contact Referred To Contact Closed Radiology Diagnoses Frequent UTI Procedures US RENAL COMPLETE Lorena Ricks, CONSUMER RELATIONS COMPLAINT CLERK - HAND BRUSH FILLER [address] [place] [address] Reason Comments Gynecologic Exam Reason Comments Amenorrhea Reason Comments Routine Visit Reason Comments Routine Visit [facility]I Screening Care Teams (unrecognized sec tion and content) Back End Web Developer Relationship Specialty Start Date End Date Ynes Rodriguez, CONSUMER RELATIONS COMPLAINT CLERK - HAND BRUSH FILLER [address] [place] [address] PCP - General Family Nurse Practitioner 05/04/20 Back End Web Developer Relationship Specialty Start Date End Date Ynes Rodriguez, CONSUMER RELATIONS COMPLAINT CLERK - HAND BRUSH FILLER [address] [place] [address] [address] [place] [address] PCP - General Family Nurse Practitioner 05/04/20 Back End Web Developer Relationship Specialty Start Date End Date Ynes Rodriguez, CONSUMER RELATIONS COMPLAINT CLERK - HAND BRUSH FILLER [facility] Juan Ramon [address] [place] [address] PCP - General Family Nurse Practitioner 08/02/22 Back End Web Developer Relationship Specialty Start Date End Date Ynes Rodriguez, CONSUMER RELATIONS COMPLAINT CLERK - HAND BRUSH FILLER [address] [place] [address] [address] [place] [address] PCP - General Family Nurse Practitioner 08/02/22 Back End Web Developer Relationship Specialty Start Date End Date Ynes Rodriguez, CONSUMER RELATIONS COMPLAINT CLERK - HAND BRUSH FILLER [address] [address] PCP - General Family Nurse Practitioner 08/02/22 [...] BE BASED ON THE PRIMARY CLINICAL RECORDS. [facility] [employer] [facility]. provides no warranty or guarantee of the accuracy or completeness of information in this document.
[2025-04-05 10:43] LABS: Hematocrit 30.7 % (36.0-48.0); Hemoglobin 10.3 g/dL (12.0-16.0); Immature Granulocytes Abs Auto 0.04 10^3/uL (0.00-0.03); Immature Granulocytes Pct Auto 0.4 % (0.0-0.5); Lymphocytes Absolute Auto 1.9 10^3/uL (1.2-3.8); Mean Corpuscular HGB Conc 33.6 g/dL (29.9-35.2); Mean Corpuscular Hemoglobin 29.7 pg (26.7-34.0); Mean Corpuscular Volume 88.5 fL (81.0-99.0); Platelet Count 358 10^3/uL (150-450); Red Blood Count 3.47 10^6/uL (4.20-5.40); White Blood Count 11.0 10^3/uL (4.0-11.0)
== END 2025-04-05 10:17 | disposition home or self-care (01) ==
PROVIDERS: PCP Nurse Practitioner Women's Health; Visit Provider Physician Assistant
DX: R42 Dizziness and giddiness (principal); F64.9 Gender identity disorder, unspecified
CPT/HCPCS: 36415; 85025

== ENCOUNTER 2025-04-30 15:48 | Outpatient (OUT) | payer OTHER, SELFPAY ==
--- OUTSIDE RECORDS SUMMARY | 2025-04-30 15:54 | XMS_ITS | CCD ---
Author Organization [facility] CliniSyhi Care Team Providers Care Shopfitter Name Role Phone Jannette Peña I Primary Care Provider Ynes Rodriguez Primary Care Provider Michael LUX Ynes ANDRES Primary Care Provide r LAW, MUKUL R Admitting Unavailable LAW, MUKUL R Primary Care Unavailable LAW, MUKUL R Admitting Unavailable LAW, MUKUL R Primary Care Unavailable LAW, MUKUL R Admitting Unavailable LAW, MUKUL R Primary Care Unavailable BERTO LIVE Admitting Unavailabl e LAW, MUKUL R Primary Care Unavailable Michael DIRECTOR OF PRIMARY CARE - SALVAGE WINDER, Ynes Conner Primary Care Provide r Unavailable Primary Care Provider Unavailabl e LAW ., DR DE LA TORRE Attending Unavailable MISC, DR YAÑEZ Primary Care Unavailable DOE RUN, DR YELENA Henao Consulting Unavailable LAW ., [...] Unavailable MISC, DR YAÑEZ Primary Care Unavailable DOE RUN, DR YELENA Henao Consulting Unavailable LAW ., [...] FOY Referring Unavailable MUKUL FOY Attending Unavailable LAW, MUKUL Attending Unavailable LAW, MUKUL Attending Unavailable LAW, MUKUL Attending Unavailable REGINA BARTON Attending Unavailable REGINA BARTON Attending Unavailable Medications Current Medications Medication Drug Class(es) Dates Sig (Normalized) Sig (Original) atorvastatin 10 mg oral tablet (1 source) HMG-CoA Reductase Inhibitor Start: 02-20-2024 take 1 tablet by mouth once daily atorvastatin (LIPITOR) 10 MG tablet Take 1 tablet by mouth daily 30 tablet 5 02/20/2024 Active cephalexin 500 mg oral capsule (4 sources) Cephalosporin Antibacterial Start: 04-03-2025 End: 04-10-2025 [...] mg oral tablet (1 source) Azole Antifungal Sta rt: 0 take 1 tablet by mouth once daily as needed fluconazole (DIFLUCAN) 150 MG tablet Indications: Vaginal yeast infection Take 1 tablet by mouth daily as needed (yeast) 1 tablet 11 03/24/2020 Active fluticasone propionate 0.05 mg/actuat metered dose nasal spray (5 sources) Corticosteroid fluticasone (KEVIN NASE) 50 MCG/ACT nasal spray 1 spray by Each Nare route daily 0 Active 3 ml insulin glargine 100 unt/ml pen injector (3 sources) Insulin Analog Sta rt: 5 End : 5 inject 10 [IU] by subcutaneous injection at bedtime insulin glargine (Lantus SoloStar) 100 UNIT/ML pen Indications: Hyperglycemia Inject 10 Units under the skin at bedtime FILL ACCORDING TO INSURANCE COVERAGE 3 mL 04/07/2025 05/07/2025 Active loratadine 10 mg oral capsule (2 sources) take 1 capsule by mouth once daily loratadine (CLARITIN) 10 MG capsule Take 10 mg by mouth daily 0 Active 24 hr metFORMIN hydrochloride 500 mg extended release oral tablet (20 sources) Biguanide Sta rt: End : take 2 tablets by mouth every twenty-four hours at mealtime metFORMIN XR (Glucophage-XR) 500 MG 24 hr tablet Indications: Second trimester ([facility]HS-HCC) , 20 weeks gestation of ([facility]-H[facility]) Take 2 tablets (1,000 mg) by mouth [...] 10/23/2024 Active metoclopramide 10 mg oral tablet (10 sources) Dopamine-2 Receptor Antagonist Start: 03-12-2025 End: [...] needed for nausea. 90 tablet 3 03/12/2025 Active nitrofurantoin, macrocrystals 50 mg oral capsule (4 sources) Nitrofuran Antibacterial Start: 03-03-2020 take 1 capsule by mouth once daily nitrofurantoin (MACRODANTIN) 50 MG capsule Indications: Recurrent UTI Take 1 capsule by mouth nightly 30 capsule 0 03/03/2020 Active pantoprazole 40 mg delayed release oral tablet (13 sources) Proton Pump Inhibitor Start: 02-26-2025 End: 02-26-2026 take 1 tablet by mouth before mealtime pantoprazole (Protonix) 40 MG EC tablet Indications: 23 weeks gestation of ([facility]) , Elevated blood sugar level , Gastroesophageal [...] polysaccharide iron complex 391 mg oral capsule (8 sources) Start: 04-02-2025 End: 05-02-2025 take 1 [...] accident; Translations: [ENC EXAM AND OBSERVATION FOLLOW OT ACC] Onset: 12-12-2022 Episodic Other liver diseases [...] of ] 02-11-2025 Episodic Residual codes; unclassified (15 sources) Gestation period, 23 weeks; Translations: [23 weeks gestation of ] Onset: 02-26-2025 02-26-2025 Episodic Residual codes; unclassified (2 sources) Gestation period, 25 weeks; Translations: [25 weeks gestation of ] 03-12-2025 Episodic Residual codes; unclassified (2 sources) Gestation period, 28 weeks; Translations: [28 weeks gestation of ] 04-03-2025 Episodic Residual codes; unclassified (2 sources) Gestation period, 30 weeks; Translations: [30 weeks gestation of ] 04-14-2025 Episodic Unclassified (1 source) Cancer cervix screening status; Translations: [Screening for cervical cancer] Unclassified (3 sources) Patient encounter status; Translations: [Encounter for annual routine gynecological examination] Unclassified (20 sources) OB Reminders Onset: 11-29-2024 11-29-2024 Past [...] Facil ity Urinalysis macro (dipstick) panel (U)on 04-14-2025 Bilirubin, UA Negative Negative - 4(70) +++ mg/dL [facility] Blood, UA Negative Negative - 50 Yunior/mcL [facility] Clarity, UA Clear [facility] Color, UA Yellow [facility] Glucose, UA Negative Negative - 2000(110) ++++ mg/dL [facility] Interpretation and review of laboratory results Normal [facility] Ketones, UA Negative Negative - 160(16) ++++ mg/dL [facility] Leukocytes, UA Negative Negative - 500+++ Trip/mcL [facility] Nitrite, UA Negative Negative - Positive [facility] pH, UA 6.5 5 - 9 [facility] Protein, UA Negative Negative - 2000(20) ++++ mg/dL [facility] Spec Grav, UA 1.005 1 - 1.03 [facility] Urobilinogen, UA 0.2 0.2 - 12 mg/dL [facility] ALL CBC WITH AUTO DIFFon BASOPHILS ABSOLUTE AUTO 0 [facility] Basophils/100 WBC (Bld) 0.2 % 0.2 - 2.0 % [facility] Eosinophils/100 WBC (Bld) 1.1 % 0.9 - 7.0 % [facility] Erythrocyte distribution width (RBC) [Ratio] 12.8 % 11.0 - 15.0 % [facility] Hematocrit (Bld) [Volume fraction] 30.7 % Low 36.0 - 48.0 % [facility] Hemoglobin (Bld) [Mass/Vol] 10.3 g/dL Low 12.0 - 16.0 g/dL [facility] IMMATURE GRANULOCYTES ABS AUTO 0.04 High [facility] Immature granulocytes/100 WBC (Bld) 0.4 % 0.0 - 0.5 % [facility] Interpretation and review of laboratory results Abnormal [facility] LYMPHOCYTES ABSOLUTE AUTO 1.9 [facility] Lymphocytes/100 WBC (Bld) 17.1 % Low 20.5 - 60.0 % [facility] MCH (RBC) [Entitic mass] 29.7 pg 26.7 - 34.0 pg [facility] MCHC (RBC) [Mass/Vol] 33.6 g/dL 29.9 - 35.2 g/dL [facility] MCV (RBC) [Entitic vol] 88.5 fL 81.0 - 99.0 fL [facility] MONOCYTES ABSOLUTE AUTO 0.7 [facility] Monocytes/100 WBC (Bld) 6.5 % 1.7 - 12.0 % [facility] NEUTROPHILS ABSOLUTE AUTO 8.2 High [facility] Neutrophils/100 WBC (Bld) 74.7 % 43.0 - 75.0 % [facility] Platelet mean volume (Bld) [Entitic vol] 8.7 fL Low 9.5 - 13.5 fL [facility] TBH EO # 0.1 [facility] TBH PLT 358 [facility] TB RBC 3.47 Low [facility] WBC 11 [facility] OB GROWTHon 04-05-2025 [place] [address] Ultrasound Report Signed Patient: VINNY DOWNEY MR#: [id number] : 2000 Acct:[id number] Age/Sex: 24 / F ADM Date: 04/05/25 Loc: US Attending Dr: Regina Barton Ordering Physician: Regina Barton Date of Service: 04/05/25 Procedure(s): OB growth Accession Number(s): [id number] cc: Regina Barton; Physician,Non-Staff M.[facility] The [address] [address] Patient Name: VINNY DOWNEY MRN: [facility]:[id number] date: 2000 Sex: F Assigned Patient Location: Current Patient Location: LAB Accession/Order Number: [id number] Exam Date: 04/05/2025 10:00 Report Date: 04/05/2025 12:08 At the request of: REGINA BARTON Procedure: US OB growth Limited obstetrical ultrasound HISTORY: Gestational diabetes. Assessment for growth. Fetus in breech presentation with longitudinal lie. Placenta anterior location with normal appearance. heart rate 1 36 bpm. somatic motion identified. The gestational age by ultrasound is 29 weeks 2 days. Estimated delivery 06/19/2025. Estimated weight 1335 g with weight percentile 51.2%. US/US OB growth IMPRESSION: Single live intrauterine gestation 29 weeks 2 days. Impression dictated by: Daryn Peraza M.D. 04/05/2025 12:08 PM Dictation Location: iDiDiD Electronically authenticated by: [id number] Y Date: 04/05/2025 12:08 Dictated By: Daryn Peraza D.O. Signed By: 04/05/25 1211 DD/ 1208 TD/TT: Manager Of Production: [facility] Radiology, Radiologist, - 04/05/2025 [place] [address] Ultrasound Report Signed Patient: VINNY DOWNEY MR#: [id number] : 2000 Acct:[id number] Age/Sex: 24 / F ADM Date: 04/05/25 Loc: US Attending Dr: Regina Barton Ordering Physician: Regina Barton Date of Service: 04/05/25 Procedure(s): US OB growth Accession Number(s): [id number] cc: Regina Barton; Physician,Non-Staff Khadar The [address] [address] Patient Name: VINNY DOWNEY MRN: [facility]:[id number] date: 2000 Sex: F Assigned Patient Location: US Current Patient Location: LAB Accession/Order Number: [id number] Exam Date: 04/05/2025 10:00 Report Date: 04/05/2025 12:08 At the request of: REGINA BARTON Procedure: US OB growth Limited obstetrical ultrasound HISTORY: Gestational diabetes. Assessment for growth. Fetus in breech presentation with longitudinal lie. Placenta anterior location with normal appearance. heart rate 1 36 bpm. somatic motion identified. The gestational age by ultrasound is 29 weeks 2 days. Estimated delivery 06/19/2025. Estimated weight 1335 g with weight percentile 51.2%. US/US OB growth IMPRESSION: Single live intrauterine gestation 29 weeks 2 days. Impression dictated by: Daryn Peraza M.D. 04/05/2025 12:08 PM Dictation Location: [facility]DiDi[facility] Electronically authenticated by: [id number] Y Date: 04/05/2025 12:08 Dictated By: Daryn Peraza D.O. Signed By: 04/05/25 1211 DD/ 1208 TD/TT: Manager Of Production: [facility] Radiology Study observation (narrative) [facility] OB GROWTHOrdered By: Kady ologthanh Radiology on 04-05-2025 [facility] Work Phone: Urinalysis macro (dipstick) panel (U)on 04-03-2025 Bilirubin, UA Negative Negative - 4(70) +++ mg/dL [facility] Blood, UA Negative Negative - 50 Yunior/mcL [facility] Clarity, UA Clear [facility] Color, UA Yellow [facility] Glucose, UA Negative Negative - 1999(110) ++++ mg/dL [facility] Interpretation and review of laboratory results Abnormal [facility] Ketones, UA Negative Negative - 160(16) ++++ mg/dL [facility] Leukocytes, UA Positive Negative - 500+++ Trip/mcL [facility] Nitrite, UA Negative Negative - Positive [facility] pH, UA 6.5 5 - 9 [facility] Protein, UA Negative Negative - 2000(20) ++++ mg/dL [facility] Spec Grav, UA 1.01 1 - 1.03 [facility] Urobilinogen, UA 1.0 0.2 - 12 mg/dL [facility] Urinalysis macro (dipstick) panel (U)on 03-12-2025 Bilirubin, UA Negative Negative - 4(70) +++ mg/dL [facility] Blood, UA Negative Negative - 50 Yunior/mcL [facility] Clarity, UA Clear [facility] Color, UA Yellow [facility] Glucose, UA Negative Negative - 1999(110) ++++ mg/dL [facility] Interpretation and review of laboratory results Normal [facility] Ketones, UA Negative Negative - 160(16) ++++ mg/dL [facility] Leukocytes, UA Negative Negative - 500+++ Trip/mcL [facility] Nitrite, UA Negative Negative - Positive [facility] pH, UA 6.5 5 - 9 [facility] Protein, UA Negative Negative - 1999(20) ++++ mg/dL [facility] Spec Grav, UA 1.01 1 - 1.03 [facility] Urobilinogen, UA 1.0 0.2 - 12 mg/dL [facility] Urinalysis macro (dipstick) panel (U)on 02-26-2025 Bilirubin, UA Negative Negative - 4(70) +++ mg/dL [facility] Blood, UA Negative Negative - 50 Yunior/mcL [facility] Clarity, UA Clear [facility] Color, UA Yellow [facility] Glucose, UA Negative Negative - 1999(110) ++++ mg/dL [facility] Interpretation and review of laboratory results Normal [facility] Ketones, UA Negative Negative - 160(16) ++++ mg/dL [facility] Leukocytes, UA Negative Negative - 500+++ Trip/mcL [facility] Nitrite, UA Negative Negative - Positive [facility] pH, UA 6 5 - 9 [facility] Protein, UA Negative Negative - 1999(20) ++++ mg/dL [facility] Spec Grav, UA 1.01 1 - 1.03 [facility] Urobilinogen, UA 0.2 0.2 - 12 mg/dL [facility] US OB 14+ WEEKS ANATOMY SCAN on [...] UA Negative Negative - 4(70) +++ mg/dL [facility] Blood, UA Negative Negative - 50 Yunior/mcL [facility] Clarity, UA Clear [facility] Color, UA Yellow [facility] Glucose, UA Negative Negative - 2000(110) ++++ mg/dL [facility] Interpretation and review of laboratory results Normal [facility] Ketones, UA Negative Negative - 160(16) ++++ mg/dL [facility] Leukocytes, UA Negative Negative - 500+++ Trip/mcL [facility] Nitrite, UA Negative Negative - Positive [facility] pH, UA 6.5 5 - 9 [facility] Protein, UA Negative Negative - 2000(20) ++++ mg/dL [facility] Spec Grav, UA 1.025 1 - 1.03 [facility] Urobilinogen, UA 1.0 0.2 - 12 mg/dL [facility] RECURRENT VAGINITIS (HTRX)on 01-17-2025 ATOPOBIUM VAGINAE 0 [facility] ATOPOBIUM VAGINAE Not detected [facility] BVAB 2,3 (BACTERIAL VAGINOSIS ASSOCIATED BACTERIA 2, 3); MOBILUNCUS SPP 0 [facility] BVAB 2,3 (BACTERIAL VAGINOSIS ASSOCIATED BACTERIA 2, 3); MOBILUNCUS SPP Not detected [facility] AINSLEY ALBICANS, PARAPSILOSIS, TROPICALIS 0 [facility] AINSLEY ALBICANS, PARAPSILOSIS, TROPICALIS Not detected [facility] AINSLEY GLABRATA 0 [facility] AINSLEY GLABRATA Not detected [facility] AINSLEY KRUSEI 0 [facility] AINSLEY KRUSEI Not detected [facility] CHLAMYDIA TRACHOMATIS 0 [facility] CHLAMYDIA TRACHOMATIS Not detected [facility] GARDNERELLA VAGINALIS 0 [facility] GARDNERELLA VAGINALIS Not detected [facility] MEGASPHAERA (TYPES 1, 2) 0 [facility] MEGASPHAERA (TYPES 1, 2) Not detected [facility] MYCOPLASMA GENITALIUM 0 [facility] MYCOPLASMA GENITALIUM Not detected [facility] NEISSERIA GONORRHOEAE 0 [facility] NEISSERIA GONORRHOEAE Not detected [facility] TRICHOMONAS VAGINALIS 0 [facility] TRICHOMONAS VAGINALIS Not detected [facility] CBCon 01-07-2025 Erythrocyte distribution width (RBC) [Ratio] 12.6 % 11.8 - 14.4 % [facility] Hematocrit (Bld) [Volume fraction] 35.4 % Low 36.3 - 47.1 % [facility] Hemoglobin (Bld) [Mass/Vol] 11.7 g/dL Low 11.9 - 15.1 g/dL [facility] Interpretation and review of laboratory results Abnormal [facility] MCH (RBC) [Entitic mass] 30 pg 25.2 - 33.5 pg [facility] MCHC (RBC) [Mass/Vol] 33.1 g/dL 28.4 - 34.8 g/dL [facility] MCV (RBC) [Entitic vol] 90.8 fL 82.6 - 102.9 fL [facility] Nucleated RBC/100 WBC (Bld) [Ratio] 0 % 0.0 per 100 WBC [facility] Platelet mean volume (Bld) [Entitic vol] 8.7 fL 8.1 - 13.5 fL [facility] Platelets (Bld) [#/Vol] 316 10*3/uL [facility] RBC (Bld) [#/Vol] 3.9 10*6/uL Low 3.95 - 5.1 1 m/uL [facility] WBC other (Bld) [#/Vol] 10.2 [facility] Erythrocyte distribution width (RBC) [Ratio] 12.6 % Normal 11.8-14.[address] [facility] Comment on above: Performed By: #### G LUSC, CBC #### [facility] [address] [place] [address] Green Chain Operator: Yelena Greco MD Hematocrit (Bld) [Volume fraction] 35.4 % Low 36.3-47.[address] [facility] Comment on above: Performed By: #### G LUSILVINO, CBC #### [facility] [address] [place], [place] [id number] [employer] Operator: Yelena Greco MD Hemoglobin (Bld) [Mass/Vol] 11.7 g/dL Low 11.9-15.[address] [facility] Comment on above: Performed By: #### G JANAE, CBC #### [facility] [address] [place] [address] Green Chain Operator: Yelena Greco MD MCH (RBC) [Entitic mass] 30.0 pg Normal 25.2-33.[address] [facility] Comment on above: Performed By: #### G JANAE, CBC #### [address] [place] [address] Green Chain Operator: Yelena Greco MD MCHC (RBC) [Mass/Vol] 33.1 g/dL Normal 28.4-34.[address] [facility] Comment on above: Performed By: #### G JANAE, CBC #### [address] [place] [address] Green Chain Operator: Yelena Greco MD MCV (RBC) [Entitic vol] 90.8 fL Normal 82.6-102.[address] [facility] Comment on above: Performed By: #### G LUSILVINO, CBC #### [facility] [address] [place] [address] [place] [address] [employer] Operator: Yelena Greco MD NRBC Automated 0.0 per 100 WBC Normal 0.[address] [facility] Comment on above: Performed By: #### G LUSILVINO, CBC #### [facility] [address] [place] [address] Green Chain Operator: Yelena Greco MD Platelet mean volume (Bld) [Entitic vol] 8.7 fL Normal 8.1-13.[address] [facility] Comment on above: Performed By: #### G JANAE, CBC #### [facility] [address] [place], [place] [id number] Green Chain Operator: Yelena Greco MD Platelets (Bld) [#/Vol] 316 10*3/uL Normal 138-[address] [facility] Comment on above: Performed By: #### G JANAE, CBC #### [facility] [address] [place], [place] [id number] Green Chain Operator: Yelena Greco MD RBC (Bld) [#/Vol] 3.90 10*6/uL Low 3.95-5.[address] [facility] Comment on above: Performed By: #### Honorio CARDOSO, CBC #### [facility] [address] [place], [place] [id number] Green Chain Operator: Yelena Greco MD WBC (Bld) [#/Vol] 10.2 10*3/uL Normal 3.5-11.[address] [facility] Comment on above: Performed By: #### G JANAE, CBC #### [facility] [address] [place] [address] Green Chain Operator: Yelena Greco MD Glucose Challenge Gestationa harlan 01-07-2025 GLU ADMN Glucola [facility] Glucose 1 Hr post 50 g glucose PO [Mass/Vol] 184 mg/dL High 70 - 135 mg/dL [facility] Interpretation and review of laboratory results Abnormal [facility] Glucose Toya Scr 50gon 2024 Glucose [Mass/Vol] 184 mg/dL High 70-[address] [facility] Comment on above: Performed By: #### G JANAE, CBC #### [facility] [address] [place] [address] Green Chain Operator: Yelena Greco MD Glu Administered via Glucola [facility] Comment on above: Performed By: #### G LUSC, [facility] #### [facility] [address] [place] [address] Green Chain Operator: Yelena Greco MD US OB LESS THAN [...] by: Noah Rivero MD 12/23/24 Final result [facility] Radiology, Radiologist, - 12/23/2024 EXAMINATION: FIRST TRIMESTER OBSTETRIC ULTRASOUND [...] by: Noah Rivero MD 12/23/24 Final result [facility] Radiology Study observation (narrative) [facility] US OB LESS THAN 14 WEEKS SIN GLE OR FIRST GESTATIONOrdered By: Radiologist Radiology on 12-23-2024 [facility] Work Phone: US OB LESS THAN [...] 0.6 x 1.6 cm. Interpreted by: Noah iRvero MD Signed by: Noah Rivero MD 12/23/24 Final result Normal [facility] Urinalysis macro (dipstick) panel (U)on 12-18-2024 Bilirubin, UA Negative Negative - 4(70) +++ mg/dL [facility] Blood, UA Positive Negative - 50 Yunior/mcL [facility] Clarity, UA Clear [facility] Color, UA Yellow [facility] Glucose, UA Negative Negative - 1999(110) ++++ mg/dL [facility] Interpretation and review of laboratory results Abnormal [facility] Ketones, UA Negative Negative - 160(16) ++++ mg/dL [facility] Leukocytes, UA Negative Negative - 500+++ Trip/mcL [facility] Nitrite, UA Negative Negative - Positive [facility] pH, UA 7 5 - 9 [facility] Protein, UA Negative Negative - 2000(20) ++++ mg/dL [facility] Spec Grav, UA 1.01 1 - 1.03 [facility] Urobilinogen, UA 1.0 0.2 - 12 mg/dL [facility] HCG ( test) Ql (U)o n 11-14-2024 Interpretation and review of laboratory results Abnormal [facility] Preg Test, Ur Positive Negative [facility] US OB TRANSVAGINALon 025 US OB TRANSVAGINAL [...] II, MD, PHD at 15-Nov-2024 09:44:32 AM [facility] Normal Not Available Comment on above: Order Comment: US OB TRANSVAGINAL No LMP recorded. Urinalysis macro (dipstick) panel (U)on 11-14-2024 Bilirubin, UA Negative Negative - 4(70) +++ mg/dL [facility] Blood, UA Negative Negative - 50 Yunior/mcL [facility] Clarity, UA Clear [facility] Color, UA Yellow [facility] Glucose, UA Negative Negative - 2000(110) ++++ mg/dL [facility] Interpretation and review of laboratory results Normal [facility] Ketones, UA Negative Negative - 160(16) ++++ mg/dL [facility] Leukocytes, UA Negative Negative - 500+++ Trip/mcL [facility] Nitrite, UA Negative Negative - Positive [facility] pH, UA 6.5 5 - 9 [facility] Protein, UA Negative Negative - 2000(20) ++++ mg/dL [facility] Spec Grav, UA 1.005 1 - 1.03 [facility] Urobilinogen, UA 0.2 0.2 - 12 mg/dL [facility] IGP,APTIMA HPV,AGE GDLNon AGE GDLN ACOG TESTING Note . [facility] Comment on above: TESTS RESULT FLAG UN ITS REF RANGE LAB Clinician Provided Cytology Information Source.............Cervix;Endocervix No. of containers..01 ThinPrep Vial Age Mack DALE Addie... FLAG LEGEND: L-Low Normal,H-High Normal,LL-Alert Low,HH-Alert High <-Panic Low,>-Panic High,A-Abnormal,AA-Critical Abnormal Performed at: 01 =[address] [address] Anastasiya Moses MD, IGP, RFX APTIMA HPV ASCU Note . [facility] Comment on above: TESTS RESULT FLAG UN ITS REF RANGE LAB DIAGNOSIS: 02 NEGATIVE FOR INTRAEPITHELIAL LESION OR MALIGNANCY. Specimen adequacy: 02 Satisfactory for evaluation. Endocervical and/or squamous metaplastic cells (endocervical component) are present. Performed by: 02 Maico Galaviz, Tread Tuber Machine Operator ([facility]) . 02 Note: Note 02 The [...] High,A-Abnormal,AA-Critical Abnormal Performed at: 02 [facility] [address] [address] Anastasiya Moses MD, Performed at: =G - [facility] [address] [id number] Green Chain Operator: Anastasiya Moses MD, Phone: [phone] Performed at: - [facility] [address] [id number] Green Chain Operator: Anastasiya Moses MD, Phone: [phone] [facility] Comp Metabolic Profon 2023 Albumin [Mass/Vol] 4.6 g/dL Normal 3.5-5.[address] [facility] Comment on above: Performed By: #### C P #### [facility] [address] [place] [address] Green Chain Operator: Yelena Greco MD Albumin/Glob Ratio 1.5 Normal 1.0-2.[address] [facility] Comment on above: Performed By: #### C P #### [facility] [address] [place], [place] [id number] Green Chain Operator: Yelena Greco MD Alkaline Phos 71 U/L Normal 35-104 [facility] Comment on above: Performed By: #### C P #### [facility] [address] [place], [place] [phone] Green Chain Operator: Yelena Greco MD ALT [Catalytic activity/Vol] 41 U/L High 10-[address] [facility] Comment on above: Performed By: #### C P #### [facility] [address] [place], [place] [phone] Green Chain Operator: Yelena Greco MD Anion gap [Moles/Vol] 10 mmol/L Normal 9-[address] [facility] Comment on above: Performed By: #### C P #### [facility] [address] [place], [place] [id number] Green Chain Operator: Yelena Greco MD AST [Catalytic activity/Vol] 34 U/L Normal 10-[address] [facility] Comment on above: Performed By: #### C P #### [facility] [address] [place], [place] [id number] Green Chain Operator: Yelena Greco MD Bilirubin [Mass/Vol] 0.4 mg/dL Normal 0.00-1.20 [facility] Comment on above: Performed By: #### C P #### [facility] [address] [place], [place] [id number] Green Chain Operator: Yelena Greco MD BUN/CRE Ratio 22 High 9-20 [facility] Comment on above: Performed By: #### C P #### [facility] [address] [place] [address] Green Chain Operator: Yelena Gerco MD Calcium [Mass/Vol] 9.4 mg/dL Normal 8.6-10.[address] [facility] Comment on above: Performed By: #### C P #### [facility] [address] [place] [address] Green Chain Operator: Yelena Greco MD Chloride [Moles/Vol] 103 mmol/L Normal 98-107 [facility] Comment on above: Performed By: #### C P #### [facility] [address] [place] [address] Green Chain Operator: Yelena Greco MD CO2 [Moles/Vol] 25 mmol/L Normal 20-31 [facility] Comment on above: Performed By: #### C P #### [facility] [address] [place] [address] Green Chain Operator: Yelena Greco MD Creatinine [Mass/Vol] 0.6 mg/dL Normal 0.50-0.[address] [facility] Comment on above: Performed By: #### C P #### [facility] [address] [place] [address] Green Chain Operator: Yelena Greco MD GFR/1.73 sq M.predicted among non-blacks MDRD (S/P/Bld) [Vol rate/Area] mL/min/{1.73_m2} Normal >[address] [facility] Comment on above: Result Comment: These [...] secretion. Performed By: #### C P #### [facility] [address] [place] [address] Green Chain Operator: Yelena Greco MD Glucose [Mass/Vol] 83 mg/dL Normal 74-[address] [facility] Comment on above: Performed By: #### C P #### [facility] [address] [place] [address] Green Chain Operator: Yelena Greco MD Potassium [Moles/Vol] 4.6 mmol/L Normal 3.7-5.[address] [facility] Comment on above: Performed By: #### C P #### [facility] [address] [place] [address] Green Chain Operator: Yelena Greco MD Protein [Mass/Vol] 7.8 g/dL Normal 6.6-8.[address] [facility] Comment on above: Performed By: #### C P #### [facility] [address] [place] [address] Green Chain Operator: Yelena Greco MD Sodium [Moles/Vol] 138 mmol/L Normal 136-[address] [facility] Comment on above: Performed By: #### C P #### [facility] [address] [place] [address] Green Chain Operator: Yelena Greco MD Urea nitrogen [Mass/Vol] 13 mg/dL Normal 6-[address] [facility] Comment on above: Performed By: #### C P #### [facility] [address] [place] [address] Green Chain Operator: Yelena Greco MD Comprehensive Metabolic Pane [facility] 05-20-2024 Albumin [Mass/Vol] 4.6 g/dL 3.5 - 5.2 g/dL [facility] Albumin/Globulin [Mass ratio] 1.5 {ratio} 1.0 - 2.5 [facility] ALP [Catalytic activity/Vol] 71 U/L 35 - 104 U/L [facility] ALT [Catalytic activity/Vol] 41 U/L High 10 - 35 U/L [facility] Anion gap [Moles/Vol] 10 mmol/L 9 - 16 mmol/L [facility] AST [Catalytic activity/Vol] 34 U/L 10 - 35 U/L [facility] Bilirubin [Mass/Vol] 0.4 mg/dL 0.00 - 1.20 mg/dL [facility] Calcium [Mass/Vol] 9.4 mg/dL 8.6 - 10. 4 mg/dL [facility] Chloride [Moles/Vol] 103 mmol/L 98 - 107 mmol/L [facility] CO2 [Moles/Vol] 25 mmol/L 20 - 31 mmol/L [facility] Creatinine [Mass/Vol] 0.6 mg/dL 0.50 - 0.90 mg/dL [facility] Est, Globritni Filt Rate - PINF [facility] [...] [Mass/Vol] 83 mg/dL 74 - 99 mg/dL [facility] Interpretation and review of laboratory results Abnormal [facility] Potassium [Moles/Vol] 4.6 mmol/L 3.7 - 5.3 mmol/L [facility] Protein [Mass/Vol] 7.8 g/dL 6.6 - 8.7 g/dL [facility] Sodium [Moles/Vol] 138 mmol/L 136 - 145 mmol/L [facility] Urea nitrogen [Mass/Vol] 13 mg/dL 6 - 20 mg/dL [facility] Urea nitrogen/Creatinine [Mass ratio] 22 mg/mg High 9 - 20 [facility] Lipid Panelon 05-20-2024 Cholesterol [Mass/Vol] 152 mg/dL 0 - 199 mg/dL [facility] Comment on above: Cholesterol Guidelines: <200 Desirable 200-240 Borderline >240 Undesirable Cholesterol in HDL [Mass/Vol] 33 mg/dL Low 40 - PINF mg/dL [facility] Comment on above: HDL Guidelines: <40 Undesirable 40-59 Borderline >59 Desirable Cholesterol in LDL [Mass/Vol] 88 mg/dL 0 - 100 mg/dL [facility] Comment on above: LDL Guidelines: <100 Desirable 100-129 Near to/above Desirable 130-159 Borderline >159 Undesirable Direct (measured) LDL and calculated LDL are not interchangeable tests. Cholesterol in VLDL [Mass/Vol] 31 mg/dL [facility] [employer] Cholesterol.total/Ch olesterol in HDL [Mass ratio] 5.0 {ratio} [facility] Interpretation and review of laboratory results Abnormal [facility] Triglyceride [Mass/Vol] 156 mg/dL High NINF - 150 mg/dL [facility] Comment on above: Triglyceride Guidelines: <150 Desirable 150-199 Borderline 200-499 High >499 Very high Based on AHA Guidelines for fasting triglyceride, April 2012. [facility] Lipid Profileon 05-20-2024 Cholesterol [Mass/Vol] 152 mg/dL Normal 0-[address] [facility] Comment on above: Result Comment: Cholesterol Guidelines: <200 Desirable 200-240 Borderline >240 Undesirable Performed By: #### L IPR #### [facility] [address] [place] [address] [phone] Green Chain Operator: Osvaldo Santamaria MD Cholesterol in HDL [Mass/Vol] 33 mg/dL Low >[address] [facility] Comment on above: Result Comment: HDL Guidelines: <40 Undesirable 40-59 Borderline >59 Desirable Performed By: #### L IPR #### [facility] [address] [place] [address] [phone] Green Chain Operator: Osvaldo Santamaria MD Cholesterol in LDL [Mass/Vol] 88 mg/dL Normal 0-[address] [facility] Comment on above: Result Comment: LDL Guidelines: <100 Desirable 100-129 Near to/above Desirable 130-159 Borderline >159 Undesirable Direct (measured) LDL and calculated LDL are not interchangeable tests. Performed By: #### L IPR #### [facility] [address] [place] [address] [phone] Green Chain Operator: Osvaldo Santamaria MD Cholesterol in VLDL [Mass/Vol] 31 mg/dL Normal [facility] Comment on above: Performed By: #### L IPR #### [facility] [address] [place] [address] [phone] Green Chain Operator: Osvaldo Santamaria MD Cholesterol.total/Ch olesterol in HDL [Mass ratio] 5.0 {ratio} Normal [facility] Comment on above: Performed By: #### L IPR #### [facility] [address] [place] [address] Green Chain Operator: Osvaldo Santamaria MD Triglyceride [Mass/Vol] 156 mg/dL High <[address] [facility] Comment on above: Result Comment: Triglyceride Guidelines: <150 Desirable 150-199 Borderline 200-499 High >499 Very high Based on AHA Guidelines for fasting triglyceride, April 2012. Performed By: #### L IPR #### [facility] [address] [place] [address] Green Chain Operator: Osvaldo Santamaria MD US GALLBLADDER RUQon 024 US GALLBLADDER RUQ EXAMINATION: RIGHT UPPER QUADRANT ULTRASOUND 03/06/2024 9:58 am COMPARISON: None. HISTORY: ORDERING SYSTEM PROVIDED HISTORY: Elevated liver enzymes TECHNOLOGIST PROVIDED HISTORY: [facility] elevated liver enzymes, fam hx gallbladder disease. [...] 03/06/24 Final result Normal [facility] CBCon 02-16-2024 Erythrocyte distribution width (RBC) [Ratio] 12.4 % Normal 11.8-14.[address] [facility] Comment on above: Performed By: #### F EBC #### [facility] [address] [place] [address] Green Chain Operator: Osvaldo Santamaria MD #### CBC, CP #### [address] [place], [place] [phone] Green Chain Operator: Yelena Greco MD Hematocrit (Bld) [Volume fraction] 40.2 % Normal 36.3-47.[address] [facility] Comment on above: Performed By: #### F EBC #### [address] [phone] Green Chain Operator: Osvaldo Santamaria MD #### CBC, CP #### [address] [place], [place] [phone] Green Chain Operator: Yelena Greco MD Hemoglobin (Bld) [Mass/Vol] 13.5 g/dL Normal 11.9-15.[address] [facility] Comment on above: Performed By: #### F EBC #### [address] [phone] Green Chain Operator: Osvaldo Santamaria MD #### CBC, CP #### [address] [place] [address] Green Chain Operator: Yelena Greco MD MCH (RBC) [Entitic mass] 29.8 pg Normal 25.2-33.[address] [facility] Comment on above: Performed By: #### F EBC #### [address] [address] Green Chain Operator: Osvaldo Santamaria MD #### CBC, CP #### [address] [place] [address] Green Chain Operator: Yelena Greco MD MCHC (RBC) [Mass/Vol] 33.6 g/dL Normal 28.4-34.[address] [facility] Comment on above: Performed By: #### F EBC #### [address] [phone] Green Chain Operator: Osvaldo Santamaria MD #### CBC, CP #### [address] [place], [place] [phone] Green Chain Operator: Yeelna Greco MD MCV (RBC) [Entitic vol] 88.7 fL Normal 82.6-102.[address] [facility] Comment on above: Performed By: #### F EBC #### [address] [phone] Green Chain Operator: Osvaldo Santamaria MD #### CBC, CP #### [address] [place] [phone] Green Chain Operator: Yelena Greco MD NRBC Automated 0.0 per 100 WBC Normal 0.[address] [facility] Comment on above: Performed By: #### F EBC #### [address] [address] Green Chain Operator: Osvaldo Santamaria MD #### CBC, CP #### [address] [place] [phone] Green Chain Operator: Yelena Greco MD Platelet mean volume (Bld) [Entitic vol] 8.5 fL Normal 8.1-13.[address] [facility] Comment on above: Performed By: #### F EBC #### [address] [address] Green Chain Operator: Osvaldo Santamaria MD #### CBC, CP #### [address] [place] [phone] Green Chain Operator: Yelena Greco MD Platelets (Bld) [#/Vol] 309 10*3/uL Normal 138-[address] [facility] Comment on above: Performed By: #### F EBC #### [address] [address] Green Chain Operator: Osvaldo Santamaria MD #### CBC, CP #### [address] [place] [phone] Green Chain Operator: Yelena Greco MD RBC (Bld) [#/Vol] 4.53 10*6/uL Normal 3.95-5.[address] [facility] Comment on above: Performed By: #### F EBC #### [address] [address] Green Chain Operator: Osvaldo Santamaria MD #### CBC, CP #### [address] [place] [phone] Green Chain Operator: Yelena Greco MD WBC (Bld) [#/Vol] 6.5 10*3/uL Normal 3.5-11.[address] [facility] Comment on above: Performed By: #### F EBC #### [address] [address] Green Chain Operator: Osvaldo Santamaria MD #### CBC, CP #### [address] [place] [phone] Green Chain Operator: Yelena Greco MD Comp Metabolic Profon 2023 Albumin [Mass/Vol] 4.5 g/dL Normal 3.5-5.[address] [facility] Comment on above: Performed By: #### F EBC #### [address] [address] Green Chain Operator: Osvaldo Santamaria MD #### CBC, CP #### [address] [place] [phone] Green Chain Operator: Yleena Greco MD Albumin/Glob Ratio 1.5 Normal 1.0-2.[address] [facility] Comment on above: Performed By: #### F EBC #### [address] [address] Green Chain Operator: Osvaldo Santamaria MD #### CBC, CP #### [address] [place] [phone] Green Chain Operator: Yelena Greco MD Alkaline Phos 74 U/L Normal 35-104 [facility] Comment on above: Performed By: #### F EBC #### [facility] [address] [place] [address] Green Chain Operator: Osvaldo Santamaria MD #### CBC, CP #### [facility] [address] [place], [place] [phone] Green Chain Operator: Yelena Greco MD ALT [Catalytic activity/Vol] 61 U/L High 5-[address] [facility] Comment on above: Performed By: #### F EBC #### [address] [address] Green Chain Operator: Osvaldo Santamaria MD #### CBC, CP #### [facility] [address] [place] [address] [place], [place] [phone] Green Chain Operator: Yelena Greco MD Anion gap [Moles/Vol] 8 mmol/L Low 9-[address] [facility] Comment on above: Performed By: #### F EBC #### [address] [address] Green Chain Operator: Osvaldo Santamaria MD #### CBC, CP #### [facility] [address] [place] [address] [place], [place] [phone] Green Chain Operator: Yelena Greco MD AST [Catalytic activity/Vol] 43 U/L High <[address] [facility] Comment on above: Performed By: #### F EBC #### [address] [address] Green Chain Operator: Osvaldo Santamaria MD #### CBC, CP #### [facility] [address] [place] [address] [place], [place] [phone] Green Chain Operator: Yelena Greco MD Bilirubin [Mass/Vol] 0.2 mg/dL Low 0.3-1.2 [facility] Comment on above: Performed By: #### F EBC #### [address] [address] Green Chain Operator: Osvaldo Santamaria MD #### CBC, CP #### [facility] [address] [place], [place] [phone] Green Chain Operator: Yelena Greco MD BUN/CRE Ratio 20 Normal 9-20 [facility] Comment on above: Performed By: #### F EBC #### [address] [address] Green Chain Operator: Osvaldo Santamaria MD #### CBC, CP #### [address] [place], [place] [phone] Green Chain Operator: Yelena Greco MD Calcium [Mass/Vol] 9.4 mg/dL Normal 8.6-10.[address] [facility] Comment on above: Performed By: #### F EBC #### [address] [address] Green Chain Operator: Osvaldo Santamaria MD #### CBC, CP #### [address] [place], [place] [phone] Green Chain Operator: Yelena Greco MD Chloride [Moles/Vol] 100 mmol/L Normal 98-107 [facility] Comment on above: Performed By: #### F EBC #### [address] [address] Green Chain Operator: Osvaldo Santamaria MD #### CBC, CP #### [address] [place] [address] Green Chain Operator: Yelena Greco MD CO2 [Moles/Vol] 28 mmol/L Normal 20-31 [facility] Comment on above: Performed By: #### F EBC #### [address] [address] Green Chain Operator: Osvaldo Santamaria MD #### CBC, CP #### [facility] [address] [place] [address] Green Chain Operator: Yelena Greco MD Creatinine [Mass/Vol] 0.6 mg/dL Normal 0.5-0.[address] [facility] Comment on above: Performed By: #### F EBC #### [address] [address] Green Chain Operator: Osvaldo Santamaria MD #### CBC, CP #### [facility] [address] [place] [address] Green Chain Operator: Yelena Greco MD GFR/1.73 sq M.predicted among non-blacks MDRD (S/P/Bld) [Vol rate/Area] mL/min/{1.73_m2} Normal >[address] [facility] Comment on above: Result Comment: These [...] secretion. Performed By: #### F EBC #### [address] [address] Green Chain Operator: Osvaldo Santamaria MD #### CBC, CP #### [address] [place] [address] Green Chain Operator: Yelena Greco MD Glucose [Mass/Vol] 91 mg/dL Normal 70-[address] [facility] Comment on above: Performed By: #### F EBC #### [address] [address] Green Chain Operator: Osvaldo Santamaria MD #### CBC, CP #### [address] [place], [place] [phone] Green Chain Operator: Yelena Greco MD Potassium [Moles/Vol] 4.2 mmol/L Normal 3.7-5.[address] [facility] Comment on above: Performed By: #### F EBC #### [address] [address] Green Chain Operator: Osvaldo Santamaria MD #### CBC, CP #### [address] [place], [place] [phone] Green Chain Operator: Yelena Greco MD Protein [Mass/Vol] 7.6 g/dL Normal 6.4-8.[address] [facility] Comment on above: Performed By: #### F EBC #### [address] [address] Green Chain Operator: Osvaldo Santamaria MD #### CBC, CP #### [address] [place], [place] [phone] Green Chain Operator: Yelena Greco MD Sodium [Moles/Vol] 136 mmol/L Normal 135-[address] [facility] Comment on above: Performed By: #### F EBC #### [address] [address] Green Chain Operator: Osvaldo Santamaria MD #### CBC, CP #### [address] [place], [place] [phone] Green Chain Operator: Yelena Greco MD Urea nitrogen [Mass/Vol] 12 mg/dL Normal 6-[address] [facility] Comment on above: Performed By: #### F EBC #### [address] [address] Green Chain Operator: Osvaldo Santamaria MD #### CBC, CP #### [address] [place], [place] [phone] Green Chain Operator: Yelena Greco MD Iron Binding Cap.on 02-16-20 24 % Fe Saturation 25 % Normal 20-55 [facility] Comment on above: Performed By: #### F EBC #### [place] [address] [place] [address] Green Chain Operator: Osvaldo Santamaria MD #### CBC, CP #### [facility] [address] [place], [place] 3000983 Green Chain Operator: Yelena Greco MD Iron [Mass/Vol] 92 ug/dL Normal 37-145 [facility] Comment on above: Performed By: #### F EBC #### [address] [address] Green Chain Operator: Osvaldo Santamaria MD #### CBC, CP #### [facility] [address] [place], [place] [phone] Green Chain Operator: Yelena Greco MD Total Fe Binding Cap 373 ug/dL Normal 250-450 [facility] Comment on above: Performed By: #### F EBC #### [address] [address] Green Chain Operator: Osvaldo Santamaria MD #### CBC, CP #### [facility] [address] [place] [address] [place], [place] [phone] Green Chain Operator: Yelena Greco MD Unbound Fe Bind Cap 281 ug/dL Normal 112-[address] [facility] Comment on above: Performed By: #### F EBC #### [address] [address] Green Chain Operator: Osvaldo Santamaria MD #### CBC, CP #### [facility] [address] [place], [place] [phone] Green Chain Operator: Yelena Greco MD Lipid Profileon 02-16-2024 Cholesterol [Mass/Vol] 245 mg/dL High 0-[address] [facility] Comment on above: Result Comment: Cholesterol Guidelines: <200 Desirable 200-240 Borderline >240 Undesirable Performed By: #### L IPR #### [address] [address] Green Chain Operator: Osvaldo Santamaria MD Cholesterol in HDL [Mass/Vol] 34 mg/dL Low >[address] [facility] Comment on above: Result Comment: HDL Guidelines: <40 Undesirable 40-59 Borderline >59 Desirable Performed By: #### L IPR #### [facility] [address] [place] [address] Green Chain Operator: Osvaldo Santamaria MD Cholesterol in LDL [Mass/Vol] 159 mg/dL High 0-[address] [facility] Comment on above: Result Comment: LDL Guidelines: <100 Desirable 100-129 Near to/above Desirable 130-159 Borderline >159 Undesirable Direct (measured) LDL and calculated LDL are not interchangeable tests. Performed By: #### L IPR #### [facility] [address] [place] [address] Green Chain Operator: Osvaldo Santamaria MD Cholesterol in VLDL [Mass/Vol] 52 mg/dL Normal [facility] Comment on above: Performed By: #### L IPR #### [facility] [address] [place] [address] Green Chain Operator: Osvaldo Santamaria MD Cholesterol.total/Ch olesterol in HDL [Mass ratio] 7.0 {ratio} Normal [facility] Comment on above: Performed By: #### L IPR #### [facility] [address] [place] [address] Green Chain Operator: Osvaldo Santamaria MD Triglyceride [Mass/Vol] 259 mg/dL High <[address] [facility] Comment on above: Result Comment: Triglyceride Guidelines: <150 Desirable 150-199 Borderline 200-499 High >499 Very high Based on AHA Guidelines for fasting triglyceride, April 2012. Performed By: #### L IPR #### [facility] [address] [place] [address] Green Chain Operator: Osvaldo Santamaria MD Office Visiton 07-11-2023 Follow-up visit [id number] Vinny Downey 2000 F Date Provider Department Center 07/11/2023 RAJENDRA GUNN [facility]SON [facility] Family History Problem Relation Age of Onset Anemia Mother Supraventricular tachycardia Father Hyperlipidemia Father Diabetes Sister Family Status - Relation Status Age at Mother Father Sister Level of Service:09830 HI OFFICE/OUTPATIENT NEW MODERATE MDM 45 MINUTES Normal [facility] Office Visiton 03-20-2023 Follow-up visit [id number] Vinny Downey 2000 F Date Provider Department Center 03/20/2023 ISRAEL ULLOA SAMSON [facility] Family History Problem Relation Age of Onset Anemia Mother Supraventricular tachycardia Father Hyperlipidemia Father Diabetes Sister Family Status - Relation Status Age at Mother Father Sister Level of Service:58310 HI OFFICE/OUTPATIENT NEW LOW MDM 30-44 MINUTES Normal [facility] US PREG BIOPHY W NON STRESSo [...] by: YELENA CARLOS Date: 2022-12-20 07:03 Normal [facility] US PREG PLACENTAon US PREG PLACENTA EXAMINATION: [...] LUIS ALFREDO GRANT Date: 2022-12-12 14:56 Normal [facility] US PREG BIOPHY W NON STRESSo [...] LUIS ALFREDO GRANT Date: 2022-12-11 04:08 Normal [facility] US PREG GROWTHon 12-11-2022 US PREG GROWTH EXAMINATION: US PREG GROWTH HISTORY: High weight infant COMPARISON: Ultrasound anatomy 09/10/2022 FINDINGS: Heart Rate: [...] LUIS ALFREDO GRANT Date: 2022-12-11 04:06 Normal [facility] GTT 3 HR PREGon 10-22-2022 Glucose [Mass/Vol] 98 mg/dL Normal 74-106 [facility] Comment on above: Performed By: #### G TT3P #### [facility] [address] [place] [address] Dr. Emilee Springer Glucose [Mass/Vol] 170 mg/dL Normal [facility] Comment on above: Performed By: #### G TT3P #### [facility] [address] [place] [address] Dr. Emilee Springer Glucose [Mass/Vol] 201 mg/dL Normal [facility] Comment on above: Performed By: #### G TT3P #### [facility] [address] [place] [address] Dr. Emilee Springer Glucose [Mass/Vol] 115 mg/dL Normal [facility] Comment on above: Performed By: #### G TT3P #### [facility] [address] [place] [address] Dr. Emilee Springer US PREG INCOMPLETE ANATOMYon [...] YELENA CARLOS Date: 2022-10-16 08:44 Normal [facility] CBC AUTO DIFFon 10-15-2022 BASO # 0.0 103/ul Normal 0.0-0.1 [facility] Comment on above: Performed By: #### C BC #### [facility] [address] [place] [address] Dr. Emilee Springer Basophils/100 WBC (Bld) 0.2 % Normal 0.2-2.0 [facility] Comment on above: Performed By: #### C BC #### [facility] [address] [place] [address] Dr. Emilee Springer EO # 0.1 103/ul Normal 0.0-0.7 [facility] Comment on above: Performed By: #### C BC #### [facility] [address] [place] [address] Dr. Emilee Springer Eosinophils/100 WBC (Bld) 0.8 % Critically low 0.9-7.0 [facility] Comment on above: Performed By: #### C BC #### [facility] [address] [place] [address] Dr. Emilee Springer Erythrocyte distribution width (RBC) [Ratio] 12.5 % Normal 11.0-15.0 [facility] Comment on above: Performed By: #### C BC #### [facility] [address] [place] [address] Dr. Emilee Springer Hematocrit (Bld) [Volume fraction] 29.8 % Critically low 36.0-48.0 [facility] Comment on above: Performed By: #### C BC #### [facility] [address] [place] [address] Dr. Emilee Springer Hemoglobin (Bld) [Mass/Vol] 10.0 g/dL Critically low 12.0-16.0 [facility] Comment on above: Performed By: #### C BC #### [facility] [address] [place] [address] Dr. Emilee Springer IG # 0.05 10e3/ul Critically high 0.00-0.03 [facility] Comment on above: Performed By: #### C BC #### [facility] [address] [place] [address] Dr. Emilee Springer IG % 0.5 % Normal 0.0-0.5 [facility] Comment on above: Performed By: #### C BC #### [facility] [address] [place] [address] Dr. Emilee Springer LYMPH # 1.6 103/ul Normal 1.2-3.8 [facility] Comment on above: Performed By: #### C BC #### [facility] [address] [place] [address] Dr. Emilee Springer Lymphocytes/100 WBC (Bld) 15.3 % Critically low 20.5-60.0 [facility] Comment on above: Performed By: #### C BC #### [facility] [address] [place] [address] Dr. Emilee Springer MANUAL DIFF REQ NO Normal [facility] Comment on above: Performed By: #### C BC #### [facility] [address] [address] [address] Emilee Springer MCH (RBC) [Entitic mass] 30.2 pg Normal 26.7-34.0 [facility] Comment on above: Performed By: #### C BC #### [facility] [address] [place] [address] Dr. Emilee Springer MCHC (RBC) [Mass/Vol] 33.6 g/dL Normal 29.9-35.2 [facility] Comment on above: Performed By: #### C BC #### [facility] [address] [place] [address] Dr. Emilee Springer MCV (RBC) [Entitic vol] 90.0 fL Normal 81.0-99.0 [facility] Comment on above: Performed By: #### C BC #### [facility] [address] [place] [address] Dr. Emilee Springer MONO # 0.6 103/ul Normal 0.3-0.8 [facility] Comment on above: Performed By: #### C BC #### [facility] [address] [place] [address] Dr. Emilee Springer Monocytes/100 WBC (Bld) 5.8 % Normal 1.7-12.0 [facility] Comment on above: Performed By: #### C BC #### [facility] [address] [place] [address] Dr. Emilee Springer NEUT # 8.2 103/ul Critically high 1.4-6.5 [facility] Comment on above: Performed By: #### C BC #### [facility] [address] [place] [address] Dr. Emilee Springer Neutrophils/100 WBC (Bld) 77.4 % Critically high 43.0-75.0 [facility] Comment on above: Performed By: #### C BC #### [facility] [address] [place] [address] Dr. Emilee Springer Platelet mean volume (Bld) [Entitic vol] 8.5 fL Critically low 9.5-13.5 [facility] Comment on above: Performed By: #### C BC #### [facility] [address] [place] [address] Dr. Emilee Springer PLT 347 103/ul Normal 150-450 [facility] Comment on above: Performed By: #### C BC #### [facility] [address] [place] [address] Dr. Emilee Springer RBC 3.31 106/ul Critically low 4.20-5.40 [facility] Comment on above: Performed By: #### C BC #### [facility] [address] [place] [address] Dr. Emilee Springer WBC 10.6 103/ul Normal 4.0-11.0 [facility] Comment on above: Performed By: #### C BC #### [facility] [address] [place] [address] Dr. Emilee Springer GLUCOSE - 1HRon 10-15-2022 Glucose [Mass/Vol] 176 mg/dL Critically high 74-106 [facility] Comment on above: Performed By: #### G LU1HR #### [facility] [address] [place] [address] Dr. Emilee Springer CHLAMYDIA/GONOCOCCUS ANISA ( AB/URINE/PAPon 09-15-2022 Chlamydia trachomatis, ANISA Negative Normal Negative [facility] Comment on above: Performed By: #### C BC #### [facility] [address] [place] [address] Dr. Emilee Springer Neisseria gonorrhoeae, ANISA Negative Normal Negative [facility] Comment on above: Performed By: #### C BC #### [facility] [address] [place] [address] Dr. Emilee Springer VAGINITIS/VAGINOSIS DNA PROB Leonid 09-14-2022 Ainsley species Negative Normal Negative [facility] Comment on above: Performed By: #### C BC #### [facility] [address] [place] [address] Dr. Emilee Springer Gardnerella vaginalis Negative Normal Negative [facility] Comment on above: Performed By: #### C BC #### [facility] [address] [place] [address] Dr. Emilee Springer Trichomonas vaginalis Negative Normal Negative [facility] Comment on above: Performed By: #### C BC #### [facility] [address] [address] [address] Emilee Springer US PREG ANATOMY SINGLEon [...] ALFREDO GRANT Date: 2022-09-13 16:57 Normal [facility] AFP MATERNAL FOR SPINA BIFID Aon 08-31-2022 AFP MoM 0.42 Normal [facility] Comment on above: Performed By: #### A FPMAT #### [facility] [address] [address] [address] Emilee Springer AFP Value 16.7 ng/mL Normal [facility] Comment on above: Performed By: #### A FPMAT #### [facility] [address] [address] [address] Emilee Springer AFP, Serum for Spina Bifida Report Normal [facility] Comment on above: Performed By: #### A FPMAT #### [facility] [address] [address] [address] Emilee Springer Comment Comment Normal [facility] Comment on above: Result Comment: Darío Machado, Ph.D., [facility] Director . References: Available Upon Request. . Multiples Of Median Cutoffs For AFP Elevations Berkowitz 2.5 Black 2.8 IDD 2.0 Twins 4.5 Abbreviation Definitions IDD - Insulin Dep Diabetes OSBR - Open Spina Bifida Risk . For further inquiries contact [employer] at [phone]. . This test was developed and its performance characteristics determined by [employer]. It has not been cleared or approved by the Food and Drug Administration. Performed By: #### A FPMAT #### [facility] [address] [address] [address] Emilee Springer Gest Age Collection Date 18.6 weeks Normal [facility] Comment on above: Performed By: #### A FPMAT #### [facility] [address] [place] [address] Dr. Emilee Springer Gestat, Age Based on JOCELIN Normal [facility] Comment on above: Result Comment: 12/2022 Recalculations are not recommended when gestational dating by LMP and ultrasound are within 10 days. Performed By: #### A FPMAT #### [facility] [address] [place] [address] Dr. Emilee Springer Insulin Dep Diabetes Comment Normal [facility] Comment on above: Result Comment: Not provided. . Performed By: #### A FPMAT #### [facility] [address] [place] [address] Dr. Emilee Springer Interpretation Comment Normal [facility] Comment on above: Result Comment: Inte [...] Customer Services to discuss available options. The [employer] recommends amniocentesis be offered to women age 35 and older. Performed By: #### A FPMAT #### [facility] [address] [place] [address] Dr. Emilee Springer [age] Normal [facility] Comment on above: Performed By: #### A FPMAT #### [facility] [address] [place] [address] Dr. Emilee Springer Multiple Gestation Comment Normal [facility] Comment on above: Result Comment: Not provided. . Performed By: #### A FPMAT #### [facility] [address] [place] [address] Dr. Emilee Springer [place] [address] Normal [facility] Comment on above: Performed By: #### A FPMAT #### [facility] [address] [place] [address] Dr. Emilee Springer PDF . Normal [facility] Comment on above: Performed By: #### A FPMAT #### [facility] [address] [place] [address] Dr. Emilee Springer Race Comment [facility] Comment on above: Result Comment: Not provided. . Performed By: #### A FPMAT #### [facility] [address] [place] [address] Dr. Emilee Springer Test Results: Negative Normal [facility] Comment on above: Performed By: #### A FPMAT #### [facility] [address] [place] [address] Dr. Emilee Springer Rubella antibody, IgGon Rubella virus IgG Ql (S) 314.5 IU/mL [facility] Comment on above: REFERENCE RANGE: <5.0 NON-REACTIVE (non-immune) 5.0 TO 9.9 EQUIVOCAL >=10.0 REACTIVE (immune) [facility] HEP B SURFACE ANTIGEN SCREEN on 07-05-2022 HBsAg Screen Negative Normal Negative [facility] Comment on above: Performed By: #### H BSANS #### [facility] [address] [place] [address] Dr. Emilee Springer HEPATITIS C VIRUS AB W/ REFL EX QUANTon 07-05-2022 HCV AB <0.1 Normal 0.0-0.9 [facility] Comment on above: Performed By: #### H CVPCRR #### [facility] [address] [place] [address] Dr. Emilee Springer Interpretation: Comment Normal [facility] Comment on above: Result Comment: Nega tive Not infected with HCV, unless recent infection is suspected or other evidence exists to indicate HCV infection. Performed By: #### H CVPCRR #### [facility] [address] [place] [address] Dr. Emilee Springer HIV 1 AND 2 WITH REFLEXon HIV Screen 4th Generation wRfx Non-Reactive Normal Non Reactive [facility] Comment on above: Result Comment: HIV Negative HIV-1/HIV-2 antibodies and HIV-1 p24 antigen were NOT detected. There is no laboratory evidence of HIV infection. Performed By: #### C BC #### [facility] [address] [place] [address] Dr. Emilee Springer RPR QUANTon 07-05-2022 Rapid Plasma Reagin, Quant Non-Reactive Normal NonRea<1:1 [facility] Comment on above: Result Comment: Plea se Note: This test does not meet current guidelines for screening and diagnosis of syphilis. This test is intended for following treatment response in patients being treated for syphilis infection. To screen for syphilis infection, a reflex cascade that includes both RPR and a treponema-specific assay should be utilized, such as Treponema pallidum (Syphilis) Screening [place] (289482) or Rapid Plasma Reagin (RPR) Test With Reflex to Quantitative RPR and Confirmatory Treponema pallidum Antibodies (676103). Performed By: #### C BC #### [facility] [address] [place] [address] Dr. Emilee Springer RUBELLA AB IGGon 07-05-2022 Rubella Antibodies, IgG 5.03 index Normal Immune >0.99 [facility] Comment on above: Result Comment: Non- immune <0.90 Equivocal 0.90 - 0.99 Immune >0.99 Performed By: #### R UBIGG #### [facility] [address] [place] [address] Dr. Emilee Springer CBC AUTO DIFFon 07-04-2022 BASO # 0.0 103/ul Normal 0.0-0.1 [facility] Comment on above: Performed By: #### G LU1HR #### [facility] [address] [place] [address] Dr. Emilee Springer Basophils/100 WBC (Bld) 0.2 % Normal 0.2-2.0 [facility] Comment on above: Performed By: #### G LU1HR #### [facility] [address] [place] [address] Dr. Emilee Springer EO # 0.1 103/ul Normal 0.0-0.7 [facility] Comment on above: Performed By: #### G LU1HR #### [facility] [address] [place] [address] Dr. Emilee Springer Eosinophils/100 WBC (Bld) 0.9 % Normal 0.9-7.0 [facility] Comment on above: Performed By: #### G LU1HR #### [facility] [address] [place] [address] Dr. Emilee Springer Erythrocyte distribution width (RBC) [Ratio] 11.9 % Normal 11.0-15.0 [facility] Comment on above: Performed By: #### G LU1HR #### [facility] [address] [place] [address] Dr. Emilee Springer Hematocrit (Bld) [Volume fraction] 32.9 % Critically low 36.0-48.0 [facility] Comment on above: Performed By: #### G LU1HR #### [facility] [address] [place] [address] Dr. Emilee Springer Hemoglobin (Bld) [Mass/Vol] 11.6 g/dL Critically low 12.0-16.0 [facility] Comment on above: Performed By: #### G LU1HR #### [facility] [address] [place] [address] Dr. Emilee Springer IG # 0.03 10e3/ul Normal 0.00-0.03 [facility] Comment on above: Performed By: #### G LU1HR #### [facility] [address] [place] [address] Dr. Emilee Springer IG % 0.3 % Normal 0.0-0.5 [facility] Comment on above: Performed By: #### G LU1HR #### [facility] [address] [place] [address] Dr. Emilee Springer LYMPH # 2.1 103/ul Normal 1.2-3.8 [facility] Comment on above: Performed By: #### G LU1HR #### [facility] [address] [place] [address] Dr. Emilee Springer Lymphocytes/100 WBC (Bld) 20.2 % Critically low 20.5-60.0 [facility] Comment on above: Performed By: #### G LU1HR #### [facility] [address] [place] [address] Dr. Emilee Springer MANUAL DIFF REQ NO Normal [facility] Comment on above: Performed By: #### G LU1HR #### [facility] [address] [place] [address] Dr. Emilee Springer MCH (RBC) [Entitic mass] 31.4 pg Normal 26.7-34.0 [facility] Comment on above: Performed By: #### G LU1HR #### [facility] [address] [place] [address] Dr. Emilee Springer MCHC (RBC) [Mass/Vol] 35.3 g/dL Critically high 29.9-35.2 [facility] Comment on above: Performed By: #### G LU1HR #### [facility] [address] [place] [address] Dr. Emilee Springer MCV (RBC) [Entitic vol] 89.2 fL Normal 81.0-99.0 [facility] Comment on above: Performed By: #### G LU1HR #### [facility] [address] [address] [address] Emilee Springer MONO # 0.7 103/ul Normal 0.3-0.8 [facility] Comment on above: Performed By: #### G LU1HR #### [facility] [address] [address] [address] Emilee Springer Monocytes/100 WBC (Bld) 7.0 % Normal 1.7-12.0 [facility] Comment on above: Performed By: #### G LU1HR #### [facility] [address] [place] [address] Dr. Emilee Springer NEUT # 7.5 103/ul Critically high 1.4-6.5 [facility] Comment on above: Performed By: #### G LU1HR #### [facility] [address] [place] [address] Dr. Emilee Springer Neutrophils/100 WBC (Bld) 71.4 % Normal 43.0-75.0 [facility] Comment on above: Performed By: #### G LU1HR #### [facility] [address] [place] [address] Dr. Emilee Springer Platelet mean volume (Bld) [Entitic vol] 9.1 fL Critically low 9.5-13.5 [facility] Comment on above: Performed By: #### G LU1HR #### [facility] [address] [place] [address] Dr. Emilee Springer PLT 311 103/ul Normal 150-450 [facility] Comment on above: Performed By: #### G LU1HR #### [facility] [address] [place] [address] Dr. Emilee Springer RBC 3.69 106/ul Critically low 4.20-5.40 [facility] Comment on above: Performed By: #### G LU1HR #### [facility] [address] [place] [address] Dr. Emilee Springer WBC 10.5 103/ul Normal 4.0-11.0 [facility] Comment on above: Performed By: #### G LU1HR #### [facility] [address] [place] [address] Dr. Emilee Springer CULTURE URINEon 07-04-2022 CULTURE URINE Culture Observations: LIGHT GROWTH OF MIXED GENITAL BREN. NO POTENTIAL PATHOGENS SEEN. Normal [facility] Comment on above: Performed By: #### G LU1HR #### [facility] [address] [place] [address] Dr. Emilee Springer GLYCOHEMOGLOBIN A1Con 2021 ADA RECOMMENDATION SEE BELOW Normal [facility] Comment on above: Result Comment: ADA RECOMMENDED LIMIT 4.0 - 6.0 ADA THERAPEUTIC TARGET < 7.0 ACTION SUGGESTED > 7.0 Performed By: #### A 1C #### [facility] [address] [place] [address] Dr. Emilee Springer Glucose [Mass/Vol] 108 mg/dL Normal [facility] Comment on above: Performed By: #### A 1C #### [facility] [address] [place] [address] Dr. Emilee Springer HbA1c (Bld) [Mass fraction] 5.4 % Normal 4.5-6.2 [facility] Comment on above: Performed By: #### A 1C #### [facility] [address] [place] [address] Dr. Emilee Springer ALLEN BOX TEST PT SEND OUTo n 07-04-2022 SENT TO REF LAB 07/04/2022 Normal [facility] Comment on above: Performed By: #### N BOX #### [facility] [address] [place] [address] Dr. Emilee Springer TYPE AND SCREENon 07-04-2022 TYPE AND SCREEN Negative Normal [facility] Comment on above: Performed By: #### G LU1HR #### [facility] [address] [place] [address] Dr. Emilee Springer US PREG TVon 06-23-2022 [...] authenticated by: YELENA CARLOS Date: 2022-06-23 17:00 [facility] HCG, Quantitative, on 06-02-2022 hCG Quant [id number] High NINF [facility] Comment on above: Non-preg premeno <=5 Postmeno <=8 Male <=3 If HCG results do not concur with clinical observations, additional testing to confirm results is recommended. Interpretation and review of laboratory results Abnormal [facility] PAP ACOG PANEL 2: 21 to 29on 04-24-2022 . . Normal [facility] Comment on above: Performed By: #### 4 [id number] #### [facility] [address] [address] [address] Emilee Springer Age Gdln ACOG Testing - Normal [facility] Comment on above: Performed By: #### [id number] #### [facility] [address] [address] [address] Emilee Springer DIAGNOSIS: Comment Normal [facility] Comment on above: Result Comment: NEGA TIVE FOR INTRAEPITHELIAL LESION OR MALIGNANCY. CELLULAR CHANGES ASSOCIATED WITH INFLAMMATION ARE PRESENT. Performed By: #### 4 [id number] #### [facility] [address] [address] [address] Emilee Springer Methodology: Comment Normal [facility] Comment on above: Result Comment: This liquid based ThinPrep(R) pap test was screened with the use of an image guided system. Performed By: #### 4 [id number] #### [facility] [address] [address] [address] Emilee Springer Note: Comment Normal [facility] Comment on above: Result Comment: The Pap smear is a screening test designed to aid in the detection of premalignant and malignant conditions of the uterine cervix. It is not a diagnostic procedure and should not be used as the sole means of detecting cervical cancer. Both false-positive and false-negative reports do occur. . Performed By: #### 4 [id number] #### [facility] [address] [address] [address] Emilee Springer Performed by: Comment Normal [facility] Comment on above: Result Comment: Maynor Adams, Tread Tuber Machine Operator Performed By: #### 4 [id number] #### [facility] [address] [address] [address] Emilee Springer Reflex Criteria: Comment Normal [facility] Comment on above: Result Comment: The HPV DNA reflex criteria were not met with this specimen result therefore, no HPV testing was performed. . Performed By: #### 4 [id number] #### [facility] [address] [address] [address] Emilee Springer Specimen adequacy: Comment Normal [facility] Comment on above: Result Comment: Sati sfactory for evaluation. Endocervical and/or squamous metaplastic cells (endocervical component) are present. Performed By: #### 4 [id number] #### [facility] [address] [address] [address] Emilee Springer HCG, Quantitative, on 08-10-2021 hCG Quant 45 High <5 IU/L Comment on above: Non-preg premeno <=5 Postmeno <=8 Male <=3 If HCG results do not concur with clinical observations, additional testing to confirm results is recommended. Elevated results not associated with may be found in patients with other diseases such as tumors of the germ cells (testis, ovaries, etc.), bladder, pancreas, stomach, lungs, and liver. Interpretation and review of laboratory results Abnormal [employer] [facility] RENAL COMPLETEOrdered By: Lorena Ricks on 11-25-2020 Unremarkable ultrasound of the kidneys and urinary bladder. [employer] Work Phone: EXAMINATION: RETROPERITONEAL ULTRASOUND OF THE KIDNEYS AND URINARY BLADDER 11/25/2020 COMPARISON: None HISTORY: ORDERING SYSTEM PROVIDED HISTORY: Frequent UTI TECHNOLOGIST PROVIDED HISTORY: This procedure can be scheduled via [employer]. Access your [employer] account by visiting [employer]. FINDINGS: Kidneys: The right kidney measures 11.1 cm in length and the left kidney measures 11.6 cm in length. Kidneys demonstrate normal cortical echogenicity. No evidence of hydronephrosis or intrarenal stones. Bladder: Unremarkable appearance of the bladder. No significant post void residual. [employer] Phone: [place], [place] Incoming Radiant Results From [employer] - 11/25/2020 3:59 PM EDT EXAMINATION: RETROPERITONEAL ULTRASOUND OF THE KIDNEYS AND URINARY BLADDER 11/25/2020 COMPARISON: None HISTORY: ORDERING SYSTEM PROVIDED HISTORY: Frequent UTI TECHNOLOGIST PROVIDED HISTORY: This procedure can be scheduled via [employer]. Access your [employer] account by visiting [employer]. FINDINGS: Kidneys: The right kidney measures 11.1 cm in length and the left kidney measures 11.6 cm in length. Kidneys demonstrate normal cortical echogenicity. No evidence of hydronephrosis or intrarenal stones. Bladder: Unremarkable appearance of the bladder. No significant post void residual. IMPRESSION: Unremarkable ultrasound of the kidneys and urinary bladder. [employer] Phone: Formson 10-14-2020 Forms [id number] 1.00CD:127 Normal [facility] Ambulatory Clinical Summaryo n 10-13-2020 Ambulatory Clinical Summary {[id number]}CD:[id number] Normal [facility] General Surgery Office/Clini c Noteon 10-13-2020 General Surgery Office/Clinic Note Chief Complaint post operative follow up HPI Staff 8 day post operative follow up post lap appendectomy completed while in-patient at [facility]. Doing well. Minimal discomfort. Taking Ibuprofen 400mg [...] available Patient Education Exercise to Lose Weight, Xogc-ao-Ckmk Problem List/Past Medical History Ongoing Acute appendicitis [...] Family History Family history is negative Normal [facility] Comment on above: Result Comment: Kelly mcconnell Signed By: LATANYA MCKENNA, Sushant Babb\Date and [...] Document Reviewed: 08/12/2011 ExitCare? Patient Information ?2013 [place] [facility]. Normal [facility] Provider Letter FTon 10-13 Provider Letter [place] October 13, 2020 VINNY VERMA [address] [place] [address] VINNY VERMA 2000 To Whom It May Concern, Please excuse above patient from work 10/14/20. Sincerely, Dr. Sushant Lott MD General Surgery Normal [facility] Pathology Noteon 10-08-2020 Pathology Note [id number] #1.00CD:127 Normal [facility] Facesheeton 10-07-2020 Facesheet [id number]#1.00CD:127 Normal [facility] Operative Reporton Operative Report [id number]# 1.00CD:127 Normal [facility] HIV Screenon 05-05-2020 HIV Ag/Ab NONREACTIVE NONREACTIVE [place], [place] Comment on above: No laboratory eviden ce of HIV infection. If acute HIV infection is suspected, consider testing for HIV-1 RNA. Basic Metabolic Panelon 04-23 Anion gap [Moles/Vol] 11 mmol/L 9 - 17 mmol/L [place], [place] Bun/Cre Ratio 19 [place], [place] Calcium [Mass/Vol] 9.3 mg/dL 8.6 - 10. 4 mg/dL [place] Chloride [Moles/Vol] 103 mmol/L 98 - 107 mmol/L [place] CO2 [Moles/Vol] 23 mmol/L 20 - 31 mmol/L [place] Creatinine [Mass/Vol] 0.57 mg/dL 0.5 - 0.9 mg/dL [place] GFR >60 >60 mL/min [place] GFR Non- >60 >60 mL/min [place] Glucose [Mass/Vol] 88 mg/dL 70 - 99 mg/dL [place] Potassium [Moles/Vol] 4.6 mmol/L 3.7 - 5.3 mmol/L [place] Sodium [Moles/Vol] 137 mmol/L 135 - 144 mmol/L [place] Urea nitrogen [Mass/Vol] 11 mg/dL 6 - 20 mg/dL [place] CBCon 05-04-2020 Erythrocyte distribution width (RBC) [Ratio] 11.7 % Low 11.8 - 14.4 % [place] Hematocrit (Bld) [Volume fraction] 36.4 % 36.3 - 47.1 % [place] Hemoglobin (Bld) [Mass/Vol] 12.2 g/dL 11.9 - 15.1 g/dL [place] Interpretation and review of laboratory results Abnormal [place] MCH (RBC) [Entitic mass] 31.4 pg 25.2 - 33.5 pg [place] MCHC (RBC) [Mass/Vol] 33.5 g/dL 28.4 - 34.8 g/dL [place] MCV (RBC) [Entitic vol] 93.8 fL 82.6 - 102.9 fL [place] Platelet mean volume (Bld) [Entitic vol] 9.2 fL 8.1 - 13.5 fL [place] Platelets (Bld) [#/Vol] 307 10*3/uL [place] RBC (Bld) [#/Vol] 3.88 10*6/uL Low 3.95 - 5.1 1 m/uL [place] WBC (Bld) [#/Vol] 7.2 10*3/uL [place] WBC (Bld) [#/Vol] 0.0 10*3/uL 0.0 per 100 WBC M [place], [place] Metabolic Panelon 05-04-2020 GFR/1.73 sq M predicted among non-blacks MDRD (S/P/Bld) [Vol rate/Area] [place] Comment on above: Stage 1: Some [...] body mass. Additional eGFR calculator available at: http://www.Zolpy/multiple_crcl_2012.htm TSHon 05-04-2020 TSH Qn 2.22 m[IU]/L [place] Vital Signs Date Time Vital Sign Value Performing Clinician Facility 04-14-2025 15:50-0400 Body mass index (BMI) [Ratio] 36.64 kg/m2 Regina RUIZ Work Phone: [facility] 04-14-2025 15:50-0400 Body weight 102.97 kg Regina RUIZ Work Phone: [facility] 04-14-2025 15:50-0400 Diastolic blood pressure 60 mm[Hg] Regina RUIZ Work Phone: [facility] 04-14-2025 15:50-0400 Systolic blood pressure 110 mm[Hg] Regina RUIZ Work Phone: [facility] 04-03-2025 15:44-0400 Body mass index (BMI) [Ratio] 36.61 kg/m2 Regina RUIZ Work Phone: [facility] 04-03-2025 15:44-0400 Body weight 102.88 kg Regina RUIZ Work Phone: [facility] 04-03-2025 15:44-0400 Diastolic blood pressure 70 mm[Hg] Regina RUIZ Work Phone: [facility] 04-03-2025 15:44-0400 Systolic blood pressure 120 mm[Hg] Regina RUIZ Work Phone: [facility] 03-12-2025 16:08-0400 Body mass index (BMI) [Ratio] 36.12 kg/m2 Mukul Law DO Work Phone: [facility] 03-12-2025 16:08-0400 Body weight 101.52 kg Mukul Law DO Work Phone: [facility] 03-12-2025 16:08-0400 Diastolic blood pressure 70 mm[Hg] Mukul Law DO Work Phone: [facility] 03-12-2025 16:08-0400 Systolic blood pressure 100 mm[Hg] Mukul Law DO Work Phone: [facility] 02-26-2025 15:58-0400 Body mass index (BMI) [Ratio] 35.96 kg/m2 Mukul Law DO Work Phone: [facility] 02-26-2025 15:58-0400 Body weight 101.06 kg Mukul Law DO Work Phone: [facility] 02-26-2025 15:58-0400 Diastolic blood pressure 70 mm[Hg] Mukul Law DO Work Phone: [facility] 02-26-2025 15:58-0400 Systolic blood pressure 110 mm[Hg] Mukul Law DO Work Phone: [facility] 02-11-2025 14:06-0400 Body mass index (BMI) [Ratio] 34.99 kg/m2 Mukul Law DO Work Phone: [facility] 02-11-2025 14:06-0400 Body weight 98.34 kg Mukul Law DO Work Phone: [facility] 02-11-2025 14:06-0400 Diastolic blood pressure 76 mm[Hg] Mukul Law DO Work Phone: [facility] 02-11-2025 14:06-0400 Systolic blood pressure 116 mm[Hg] Mukul Law DO Work Phone: [facility] 01-15-2025 16:41-0400 Body mass index (BMI) [Ratio] 34.19 kg/m2 Mukul Law DO Work Phone: [facility] 01-15-2025 16:41-0400 Body weight 96.07 kg Mukul Law DO Work Phone: [facility] 01-15-2025 16:41-0400 Diastolic blood pressure 72 mm[Hg] Mukul Law DO Work Phone: [facility] 01-15-2025 16:41-0400 Systolic blood pressure 118 mm[Hg] Mukul Law DO Work Phone: [facility] 12-18-2024 16:15-0400 Body mass index (BMI) [Ratio] 34.22 kg/m2 Mukul Law DO Work Phone: [facility] 12-18-2024 16:15-0400 Body weight 96.16 kg Mukul Law DO Work Phone: [facility] 12-18-2024 16:15-0400 Diastolic blood pressure 70 mm[Hg] Mukul Law DO Work Phone: [facility] 12-18-2024 16:15-0400 Systolic blood pressure 116 mm[Hg] Mukul Law DO Work Phone: [facility] 11-14-2024 15:15-0400 Body mass index (BMI) [Ratio] 33.57 kg/m2 [facility] Nurse [facility] 11-14-2024 15:15-0400 Body weight 94.35 kg [facility] Nurse [facility] 11-14-2024 15:15-0400 Diastolic blood pressure 74 mm[Hg] [facility] Nurse [facility] 11-14-2024 15:15-0400 Systolic blood pressure 122 mm[Hg] [facility] Nurse [facility] 07-15-2024 16:25-0500 Body mass index (BMI) [Ratio] 32.93 kg/m2 Mukul Foy DO Work Phone: [facility] 07-15-2024 16:25-0500 Body weight 92.53 kg Mukul Foy DO Work Phone: [facility] 08-31-2022 03:06-0500 Body weight 94.[address] MUKUL FOY . [facility] Comment on above: Performed By: #### AFPMAT #### [facility] [address] [address] [address] Emilee Springer Encounters Encounter Date Encounter Type Care Provider Facility Start: 04-14-2025 End: 04-14-2025 ambulatory REGINA BARTON Not Available Start: 04-14-2025 End: 04-14-2025 flow sheet Regina RUIZ Work Phone: [facility] Heri SANTO Comment on above: Third trimester preg gunner ([facility]); 30 weeks gestation of ([facility]) Start: 04-14-2025 End: 04-14-2025 Bamboo flowsheet Regina RUIZ Work Phone: [facility] Start: 04-14-2025 End: 04-14-2025 Bamboo flowsheet Regina RUIZ Work Phone: [facility] Start: 04-05-2025 End: 04-05-2025 Clinisync Result Encounter Regina RUIZ Work Phone: [facility] External Department Unsolicited Start: 04-05-2025 End: 04-05-2025 Clinisync Result Encounter Regina RUIZ Work Phone: [facility] External Department Unsolicited Start: 04-03-2025 End: 04-03-2025 ambulatory REGINA BARTON Not Available Start: 04-03-2025 End: 04-03-2025 flow sheet Regina RUIZ Work Phone: [facility] Comment on above: 28 weeks gestation o f ([facility]); Third trimester ([facility]); Dizziness; Gestational diabetes mellitus (GDM), antepartum, gestational diabetes method of control unspecified ([facility]); History of miscarriage; Anemia, unspecified type; UTI symptoms Start: 04-03-2025 End: 04-03-2025 Bamboo flowsheet Regina RUIZ Work Phone: [facility] Start: 04-03-2025 End: 04-03-2025 Bamboo flowsheet Regina RUIZ Work Phone: [facility] Start: 03-12-2025 End: 03-12-2025 ambulatory MUKUL LAW Not Available Start: 03-12-2025 End: 03-12-2025 flow sheet Mukul Law DO Work Phone: [facility] Comment on above: 25 weeks gestation o f ([facility]); Second trimester ([facility]); Gastroesophageal reflux disease without esophagitis Start: 03-12-2025 End: 03-12-2025 Bamboo flowsheet Mukul Law DO Work Phone: [facility] Start: 03-12-2025 End: 03-12-2025 Bamboo flowsheet Mukul Law DO Work Phone: [facility] Start: 02-26-2025 End: 02-26-2025 ambulatory MUKUL LAW Not Available Start: 02-26-2025 End: 02-26-2025 flow sheet Mukul Law DO Work Phone: [facility] Comment on above: 23 weeks gestation o f ([facility]); Elevated blood sugar level; Gastroesophageal reflux disease without esophagitis Start: 02-26-2025 End: 02-26-2025 Bamboo flowsheet Mukul Law DO Work Phone: [facility] Start: 02-26-2025 End: 02-26-2025 Bamboo flowsheet Mukul Law DO Work Phone: [facility] Start: 02-11-2025 End: 02-11-2025 flow sheet Mukul Law DO Work Phone: [facility] Comment on above: Second trimester pre gnancy ([facility]); 20 weeks gestation of ([facility]) Start: 02-11-2025 End: 02-11-2025 ambulatory MUKUL LAW Not Available Start: 01-15-2025 End: 01-15-2025 ambulatory MUKUL LAW Not Available Start: 01-15-2025 End: 01-15-2025 flow sheet Mukul Law DO Work Phone: [facility] Comment on above: Second trimester pre gnancy ([facility]); 17 weeks gestation of ([facility]); Vaginal discharge; STD exposure; Screening, , for anatomic survey ([facility]); Gastroesophageal reflux in ([facility]); Gestational diabetes mellitus (GDM), antepartum, gestational diabetes method of control unspecified ([facility]) Start: 01-15-2025 End: 01-15-2025 Bamboo flowsheet Mukul Law DO Work Phone: [facility] Start: 01-15-2025 End: 01-17-2025 Bamboo flowsheet Mukul Law DO Work Phone: [facility] Start: 01-15-2025 End: 01-17-2025 External Result Encounter Regina RUIZ Work Phone: [facility] External Department Unsolicited Start: 01-07-2025 End: 01-07-2025 ambulatory YNES RODRIGUEZ [facility] Start: 01-07-2025 End: 01-07-2025 Subsequent hospital visit by physician Ynes Rodriguez APRN - [facility] Work Phone: [facility] Start: 12-23-2024 End: 12-23-2024 Clinisync Result Encounter Mukul Law DO Work Phone: [facility] External Department Unsolicited Start: 12-23-2024 End: 12-23-2024 Clinisync Result Encounter Mukul Law DO Work Phone: [facility] External Department Unsolicited Start: 12-20-2024 End: 12-22-2024 ambulatory YNES RODRIGUEZ [facility] Start: 12-20-2024 End: 12-22-2024 Subsequent hospital visit by physician Mth Ultrasound Room [facility] Ultrasound Comment on above: Subchorionic hematom a, [...] 07-15-2024 End: 07-23-2024 Clinisync Result Encounter Mukul Doziero DO Work Phone: [facility] External Department Unsolicited Start: 07-15-2024 End: 07-23-2024 Clinisync Result Encounter Mukul Doziero DO Work Phone: [facility] External Department Unsolicited Start: 05-20-2024 End: 05-20-2024 ambulatory YNES M RODRIGUEZAriadne [facility] Start: 05-20-2024 End: 05-20-2024 Subsequent hospital visit by physician Ynes Rodriguez APRN - [facility] Work Phone: [facility] Comment on above: Elevated liver enzym es; Mixed hyperlipidemia Start: 03-06-2024 End: 03-08-2024 ambulatory YNES Britni MICHAEL [facility] Start: 02-16-2024 End: 02-16-2024 ambulatory YNES Conner RODRIGUEZAriadne [facility]erta [facility] Start: 08-06-2023 End: 08-06-2023 ambulatory Facility:[facility] Start: 07-11-2023 End: 07-11-2023 ambulatory RAJENDRA SHEFFIELD [facility] Start: 03-20-2023 End: 03-20-2023 ambulatory ISRAEL [facility] Start: 12-17-2022 End: 12-17-[address] [...] by physician Ynes Steele CNP Work Phone: [facility] Start: 04-18-2022 End: 04-18-[address] MUKUL FOY . Facility:[facility] Start: 09-23-2021 End: 09-27-2021 ambulatory BERTO KESSLER [facility] Start: 09-08-2021 End: 09-12-2021 ambulatory [facility] Start: 08-25-2021 End: 08-29-2021 ambulatory [facility] Start: 08-19-2021 End: 08-23-2021 ambulatory [facility] Start: 08-10-2021 End: 08-10-2021 Subsequent hospital visit by physician Ynes Steele CNP Work Phone: [facility] Comment on above: Amenorrhea Start: 11-25-2020 End: 11-27-2020 Subsequent hospital visit by physician Chelsea Vance Room [facility] Radiology Comment on above: Frequent UTI Start: [...] Date Procedure Procedure Detail Performing Clinician Start: 04-14-2025 Urnls dip stick/tabl et rgnt non-auto w/o micrscp Regina RUIZ Work Phone: Start: 04-05-2025 US OB GROWTH Regina RUIZ Work Phone: Start: 04-05-2025 ALL CBC WITH AUTO DIFF Regina RUIZ Work Phone: Start: 04-03-2025 Urnls dip stick/tabl et rgnt [...] Phone: Start: 07-15-2024 IGP,APTIMA HPV,AGE GDLN Mukul Foy Work Phone: Start: 07-15-2024 Microscopic observat ion [Identifier] in Cervix by Cyto stain Ynes Rodriguez DIRECTOR OF PRIMARY CARE - [facility] Work Phone: Start: 05-20-2024 Lipid panel Ynes M Juliano hess DIRECTOR OF PRIMARY CARE - [facility] Work Phone: Start: 05-20-2024 Comprehensive metabo lic panel Ynes Rodriguez DIRECTOR OF PRIMARY CARE - [facility] Work Phone: Start: 07-15-2023 Microscopic observat ion [Identifier] in Cervix by Cyto stain [facility] Start: 08-01-2022 Antibody rubella Fran Barroso DIRECTOR OF PRIMARY CARE - [facility] Work Phone: Start: 06-02-2022 Gonadotropin chorion ic quantitative Mukul Foy MD Work Phone: Start: 08-10-2021 Gonadotropin chorion ic quantitative Berto Live DIRECTOR OF PRIMARY CARE - [facility] Work Phone: Start: 11-25-2020 Us retroperitoneal r eal time w/image complete Lorena Ricks DIRECTOR OF PRIMARY CARE - [facility] Work Phone: Start: 05-04-2020 Antibody hiv-1&hiv-2 single result Ynes Rodriguez Work Phone: Start: 05-04-2020 Assay of thyroid sti mulating hormone tsh Ynes Rodriguez Work Phone: Start: 05-04-2020 Basic metabolic pane l calcium total Ynes Rodriguez Work Phone: Start: 05-04-2020 Blood count complete automated Ynes Rodriguez Work Phone: Start: 03-03-2020 Microscopic observat ion [Identifier] in Cervix by Cyto stain Ynes Rodriguez DIRECTOR OF PRIMARY CARE - [facility] Work Phone: Plan of Treatment Date Care Activity Detail Author Start: 07-15-2027 Screening for malign ant neoplasm of cervix Pap smear [facility] Start: 07-15-2026 Screening for malign ant neoplasm of cervix Pap smear [facility] Start: 08-07-2025 Depression Screen Depression Screen [facility] Start: 07-28-2025 End: 07-28-2025 Patient encounter procedure [facility] Start: 05-20-2025 Lipid panel Lipids [facility] Start: 05-14-2025 End: 05-14-2025 Patient encounter procedure 05/14/2025 11:40 AM EDT Office Visit [facility] [address] [place] [address] Ynes Rodriguez, DIRECTOR OF PRIMARY CARE - [facility] [address] [place], [place] [id number] 6 month f/u [facility] Comment on above: 6 month f/u Start: 04-30-2025 End: 04-30-2025 Patient encounter procedure 04/30/2025 3:00 PM EDT Routine [facility] [address] [place] [phone] Tiffany Li, ASHWIN [address] [place] [phone] [facility] Start: 04-14-2025 End: 04-14-2025 Patient encounter procedure 04/14/2025 3:20 PM EDT Routine [facility] [address] [place] [phone] Regina Barton PA [address] [place] [address] [facility] Start: 04-03-2025 End: 04-03-2025 Patient encounter procedure 04/03/2025 3:30 PM EDT Routine [facility] [address] [place] [address] Regina Barton PA [address] [place] [address] [facility] Start: 04-03-2025 End: 04-03-2026 CBC W Auto Differential panel - Blood CBC and differential Lab Routine Dizziness Anemia, unspecified type Expected: 04/03/2025 (Approximate), Expires: 04/03/2026 [facility] Comment on above: Expected: 04/03/2025 (Approximate), Expires: 04/03/2026 Start: 04-03-2025 End: 10-01-2025 US biophysical profile w non stress test US biophysical profile w non stress test Imaging Routine 28 weeks gestation of ([facility]) Third trimester ([facility]) Gestational diabetes mellitus (GDM), antepartum, gestational diabetes method of control unspecified ([facility]) History of miscarriage Expected: 04/03/2025 (Approximate), Expires: 10/01/2025 [facility] Comment on above: Expected: 04/03/2025 (Approximate), Expires: 10/01/2025 Start: 04-03-2025 End: 08-03-2025 US for US OB follow up transabdominal approach Imaging Routine 28 weeks gestation of ([facility]) Third trimester ([facility]) Gestational diabetes mellitus (GDM), antepartum, gestational diabetes method of control unspecified ([facility]) History of miscarriage Expected: 04/03/2025, Expires: 08/03/2025 [facility] Work Phone: Comment on above: Expected: 04/03/2025 , Expires: 08/03/2025 Start: 03-24-[address] [facility] Start: 02-21-2025 Influenza vaccination Flu vacc ine (Season Ended) [facility] Start: 02-11-2025 End: 02-11-2025 Patient encounter procedure 02/11/2025 2:10 PM EDT Routine [facility] [address] [place] [phone] Mukul Foy DO [address] [place] [address] [facility] Start: 02-11-2025 End: 02-11-2025 Professional / ancillary services management 02/11/2025 1:00 PM EDT Ancillary Procedure [facility] [address] [place] [phone] [facility] Start: 01-15-2025 End: 01-15-2025 Patient encounter procedure 01/15/2025 3:50 PM EDT Routine [facility] [address] [place] [phone] Mukul Foy, DO [address] [place] [address] [facility] Start: 01-15-2025 End: 07-17-2025 Alpha fetoprotein, maternal Alpha fetoprotein, maternal Lab Routine Second trimester ([facility]) 17 weeks gestation of ([facility]) Expected: 01/15/2025 (Approximate), Expires: 07/17/2025 [facility] Comment on above: Expected: 01/15/2025 (Approximate), Expires: 07/17/2025 Start: 01-15-2025 End: 04-17-2025 US for US OB 14+ weeks anatomy scan Imaging Routine Screening, , for anatomic survey ([facility]) Expected: 01/15/2025, Expires: 04/17/2025 [facility] Comment on above: Expected: 01/15/2025 , Expires: 04/17/2025 Start: 12-18-2024 End: 12-18-2024 Patient encounter procedure 12/18/2024 3:40 PM EDT Routine [facility] [address] [place] [phone] Mukul Foy, DO [address] [place] [address] [facility] Start: 12-18-2024 End: 12-18-2025 CBC panel - Blood by Automated count CBC Lab Routine Diabetes mellitus screening Expected: 12/18/2024 (Approximate), Expires: 12/18/2025 [facility] Work Phone: Comment on above: Expected: 12/18/2024 (Approximate), Expires: 12/18/2025 Start: 12-18-2024 End: 12-18-2025 Measurement of glucose 1 hour after glucose challenge for glucose tolerance test Glucose tolerance, 1 hour Lab Routine Diabetes mellitus screening Expected: 12/18/2024 (Approximate), Expires: 12/18/2025 [facility] Comment on above: Expected: 12/18/2024 (Approximate), Expires: 12/18/2025 Start: 12-18-2024 End: 03-20-2025 US Pelvis transvaginal US OB transvaginal Imaging Routine Subchorionic hematoma in first trimester, single or unspecified fetus Expected: 12/18/2024, Expires: 03/20/2025 [facility] Work Phone: Comment on above: Expected: 12/18/2024 , Expires: 03/20/2025 Start: 11-14-2024 End: 11-14-2025 ABO/Rh ABO/Rh Lab Routine Missed menses , unspecified gestational age Expected: 11/14/2024 (Approximate), Expires: 11/14/2025 [facility] Comment on above: Expected: 11/14/2024 (Approximate), Expires: 11/14/2025 Start: 11-14-2024 End: 11-14-2025 Blood type and Indirect antibody screen panel - Blood Type and screen Lab Routine Missed menses , unspecified gestational age Expected: 11/14/2024 (Approximate), Expires: 11/14/2025 [facility] Comment on above: Expected: 11/14/2024 (Approximate), Expires: 11/14/2025 Start: 11-14-2024 End: 11-14-2025 Drugs of abuse panel - Urine by Screen method Rapid drug screen, urine Lab Routine , unspecified gestational age Encounter for supervision of normal first in first trimester Expected: 11/14/2024 (Approximate), Expires: 11/14/2025 [facility] Comment on above: Expected: 11/14/2024 (Approximate), Expires: 11/14/2025 Start: 11-06-2024 End: 02-05-2025 US Pelvis transvaginal US OB transvaginal Imaging Routine Missed menses Expected: 11/06/2024, Expires: 02/05/2025 [facility] Work Phone: Comment on above: Expected: 11/06/2024 , Expires: 02/05/2025 Start: 10-16-2024 End: 10-16-2024 Patient encounter procedure 10/16/2024 1:40 PM EDT Office Visit [facility] [address] [place] [address] Dr [address] [place] [address] Ynes Rodriguez, DIRECTOR OF PRIMARY CARE - [facility] [address] [place] [address] [address] [place] [address] Wellness [facility] Comment on above: Wellness Start: 08-03-2024 Depression Screen Depression Screen [facility] Start: 06-04-2024 End: 06-04-2024 Patient encounter procedure 06/04/2024 11:45 AM EST Office Visit [address] [place] [address] Jose Cruz [facility] [address] [place] [address] wt management [facility] Comment on above: wt management Start: 05-22-2024 End: 05-22-2024 Patient encounter procedure 05/22/2024 11:00 AM EDT Office Visit [facility] [address] [place] [address] Dr [address] [place], [place] [id number] Ynes Rodriguez, DIRECTOR OF PRIMARY CARE - [facility] [address] [place] [address] LFT + HLD f/u(RS 10/17/23 appt) [facility] Comment on above: LFT + HLD f/u(RS 09/22 01/14 appt) Start: 03-24-2024 COVID-19 Vaccine ( season) COVID-19 Vaccine ( season) [facility] Start: 03-24-2024 COVID-19 Vaccine ( season) COVID-19 Vaccine ( season) [facility] Start: 03-24-2024 Influenza vaccination Influenza Vacc ine (#1) [facility] Start: 02-22-2024 Influenza vaccination Flu vaccine (# 1) [facility] Start: 03-03-2023 Screening for malign ant neoplasm of cervix Start: 11-09-2022 Depression Screen Depression Screen [facility] Start: 07-11-2022 End: 07-11-2022 Patient encounter procedure 07/11/2022 Office Visit Primary Care Ynes Rodriguez, DIRECTOR OF PRIMARY CARE - [facility] [address] [place] [address] [facility] Start: 05-19-2022 End: 05-19-2022 Patient encounter procedure 05/19/2022 Office Visit Obstetrics and Gynecology Berto Live, JOSE J - CN [address] [place] [address] [facility] Start: 03-18-2022 End: 03-18-2022 Patient encounter procedure 03/18/2022 Office Visit Family Medicine Ynes Rodriguez, DIRECTOR OF PRIMARY CARE - [facility] [address] [place] [address] [facility] Start: 03-12-2022 Hepatitis C screening Hepatitis C [facility] Comment on above: Postponed from 09/09 (Patient Refused) Start: 02-21-2022 Influenza vaccination Flu vaccine (# 1) [facility] Start: 11-19-2021 Screening for Chlamy carlton trachomatis Start: 09-24-2021 Influenza vaccination Flu vacc ine (Season Ended) Work Phone: Comment on above: Postponed from 03/24 (Patient Refused) Start: 08-17-2021 Depression Monitoring Depression Mon rhiannon Start: 06-30-2021 COVID-19 Vaccine (3 - Booster for Pfizer series) COVID-19 Vaccine (3 - Booster for Pfizer series) Start: 06-19-2021 DTaP/Tdap/Td vaccine (7 - Td or Tdap) DTaP/Tdap/Td vaccine (7 - Td or Tdap) Start: 06-19-2021 DTaP/Tdap/Td vaccine (7 - Td) DTaP/Tdap/Td vaccine (7 - Td) [place] Start: 03-24-2021 Influenza vaccination Flu vaccine (# 1) Start: 03-03-2021 Screening for Chlamy carlton trachomatis Chlamydia screen [place] Start: 02-23-2021 COVID-19 Vaccine (3 - Booster for Pfizer series) COVID-19 Vaccine (3 - Booster for Pfizer series) [facility] Start: 02-09-2021 End: 02-09-2021 Patient encounter procedure 02/09/2021 Office Visit Family Medicine Ynes Rodriguez, DIRECTOR OF PRIMARY CARE - [facility] [address] [place] [address] [phone] [facility] Start: 11-30-2020 End: 11-30-2020 Patient encounter procedure 11/30/2020 Office Visit Urology Chris Moe MD [address], [address] [place], [place] [id number] [facility] Start: 05-28-2020 End: 05-28-2020 Telemedicine 05/28/2020 Telemedicine Family Medicine Ynes Rodriguez, DIRECTOR OF PRIMARY CARE - [facility] [address] [place], [place] [id number] [facility] Start: 03-24-2020 Influenza vaccination Flu vaccine (# 1) [place] Start: 02-22-2020 Screening for Chlamy carlton trachomatis Chlamydia screen [place] Start: 2019 Screening for malign ant neoplasm of cervix Cervical cancer screen [place] Start: 2016 Hepatitis C screening Hepatitis C [facility] Start: 2014 COVID-19 Vaccine (1) COVID-19 Vaccin e (1) [facility] Phone: Start: 2013 HIV screening HIV screen [place], [place] Start: 1998 Hepatitis C screening Hepatitis C [facility] Phone: Bacteria identified in Urine by Culture Urine culture Microbiology Routine Missed menses Ordered: 11/14/2024 [facility] Comment on above: Ordered: 11/14/2024 Bacteria identified in Urine by Culture Urine culture Microbiology Routine UTI symptoms Ordered: 04/03/2025 [facility] Comment on above: Ordered: 04/03/2025 End: 03-03-2020 C.trachomatis N.gonorrhoeae DNA, Thin Prep C.trachomatis N.gonorrhoeae DNA, Thin Prep Microbiology Routine Encounter for annual routine gynecological examination 1 Occurrences starting 03/03/2020 until 03/03/2020 [place] Comment on above: 1 Occurrences starti ng 03/03/2020 until 03/03/2020 C.trachomatis N.gonorrhoeae DNA, Thin Prep C.trachomatis N.gonorrhoeae DNA, Thin Prep Microbiology Routine Encounter for annual routine gynecological examination 03/03/2020 5:08 PM EDT [place] CBC W Auto Different ial panel - Blood CBC and differential Lab Routine Missed menses , unspecified gestational age Ordered: 11/14/2024 [facility] Comment on above: Ordered: 11/14/2024 CHLAMYDIA TRACHOMATI S (GENITO/STI) CHLAMYDIA TRACHOMATIS (GENITO/STI) Lab Routine STD exposure Ordered: 01/15/2025 [facility] Comment on above: Ordered: 01/15/2025 Cytology Cervical or vaginal smear or scraping study Pap Smear Pathology and Cytology Routine Well woman exam with routine gynecological exam Ordered: 07/15/2024 [facility] Work Phone: Comment on above: Ordered: 07/15/2024 End: 03-03-2020 Cytopathology procedure, preparation of smear, genital source PAP SMEAR Lab Routine Screening for cervical cancer 1 Occurrences starting 03/03/2020 until 03/03/2020 [facility] [place] Comment on above: 1 Occurrences starti ng 03/03/2020 until 03/03/2020 Hemoglobin A1c/Hemoglobin.total in Blood Hemoglobin A1c Lab Routine Missed menses , unspecified gestational age Ordered: 11/14/2024 [facility] Comment on above: Ordered: 11/14/2024 Hepatitis B virus surface Ag [Presence] in Serum or Plasma by Immunoassay Hepatitis B surface antigen Lab Routine Missed menses , unspecified gestational age Ordered: 11/14/2024 [facility] Comment on above: Ordered: 11/14/2024 Hepatitis C virus Ab [Presence] in Serum or Plasma by Immunoassay Hepatitis C antibody Lab Routine Missed menses , unspecified gestational age Ordered: 11/14/2024 [facility] Comment on above: Ordered: 11/14/2024 HIV-1/HIV-2 antigen/antibody combination immunoassay HIV-1 and HIV-2 antibodies Lab Routine Missed menses , unspecified gestational age Ordered: 11/14/2024 [facility] Comment on above: Ordered: 11/14/2024 Neisseria gonorrhoea e DNA [Presence] in Unspecified specimen by ANISA with probe detection Neisseria gonorrhea DNA probe, direct Lab Routine STD exposure Ordered: 01/15/2025 [facility] Comment on above: Ordered: 01/15/2025 Reagin Ab [Presence] in Serum by RPR RPR Lab Routine Missed menses , unspecified gestational age Ordered: 11/14/2024 [facility] Comment on above: Ordered: 11/14/2024 Rubella antibody, IgG Rubella an tibody, IgG Lab Routine Missed menses , unspecified gestational age Ordered: 11/14/2024 [facility] Comment on above: Ordered: 11/14/2024 SURESWAB(R) ADVANCED VAGINITIS PLUS, TMA SURESWAB(R) ADVANCED VAGINITIS PLUS, TMA Pathology and Cytology Routine Vaginal discharge Ordered: 01/15/2025 [facility] Work Phone: Comment on above: Ordered: 01/15/2025 US Pelvis transvaginal US OB tra nsvaginal Imaging Routine Missed menses 11/14/2024 2:38 PM EDT [facility] End: 12-20-2024 uterus 14 wk transabdl 07/24 gestat [facility] [employer] Work Phone: Comment on above: 1 Occurrences starti ng 12/20/2024 until 12/20/2024 Immunizations Immunization Date Immunization Notes Care Provider Fa hilton 12-29-2020 COVID-19, Pfizer Pur ple top, DILUTE for use, 12+ yrs, 30mcg/0.3mL dose Ynesjose raul Rodriguez DIRECTOR OF PRIMARY CARE - [facility] Work Phone: [facility] Phone: 12-07-2020 COVID-19, Pfizer Pur ple top, DILUTE for use, 12+ yrs, 30mcg/0.3mL dose Ynesjose raul Rodriguez DIRECTOR OF PRIMARY CARE - [facility] Work Phone: 09-20-2017 human papilloma viru s vaccine, quadrivalent [facility] 05-01-2017 human papilloma viru s vaccine, quadrivalent [facility] 02-24-2017 human papilloma viru s vaccine, quadrivalent [facility] 03-11-2016 meningococcal polysaccharide (groups A, C, Y and W-135) diphtheria toxoid conjugate vaccine (MCV4P) [facility] 2014 meningococcal ACWY vaccine, unspecified formulation [facility] 08-19-2011 Hepatitis A Ped/Adol (Vaqta) [facility] 08-19-2011 hepatitis A vaccine, pediatric/adolescent dosage, 2 dose schedule Ynes Rodriguez DIRECTOR OF PRIMARY CARE - [facility] Work Phone: [facility] Phone: 06-19-2011 tetanus toxoid, redu saundra diphtheria toxoid, and acellular pertussis vaccine, adsorbed [facility] 02-09-2011 Hepatitis A Ped/Adol (Vaqta) [facility] 02-09-2011 hepatitis A vaccine, pediatric/adolescent dosage, 2 dose schedule Ynes Rodriguez DIRECTOR OF PRIMARY CARE - [facility] Work Phone: [facility] Work Phone: 02-09-2011 varicella virus vaccine [facility], [place] 01-12-2011 meningococcal polysaccharide (groups A, C, Y and W-135) diphtheria toxoid conjugate vaccine (MCV4P) [facility] 11-20-2003 diphtheria, tetanus toxoids and acellular pertussis vaccine [facility] 11-20-2003 measles, mumps and rubella virus vaccine [facility] 11-20-2003 poliovirus vaccine, inactivated [facility] 03-13-2000 diphtheria, tetanus toxoids and acellular pertussis vaccine [facility] 03-13-2000 haemophilus influenz ae type b vaccine, PRP-T conjugate [facility] 03-13-2000 poliovirus vaccine, inactivated [facility] 12-22-1999 measles, mumps and rubella virus vaccine [facility] 12-22-1999 varicella virus vaccine [facility] 06-09-1999 hepatitis B vaccine, pediatric or pediatric/adolescent dosage [facility] 03-12-1999 diphtheria, tetanus toxoids and acellular pertussis vaccine [facility] 03-12-1999 haemophilus influenz ae type b vaccine, PRP-T conjugate [facility] 01-18-1999 diphtheria, tetanus toxoids and acellular pertussis vaccine [facility] 01-18-1999 haemophilus influenz ae type b vaccine, PRP-T conjugate [facility] 01-18-1999 poliovirus vaccine, inactivated [facility] 1998 haemophilus influenz ae type b vaccine, PRP-T conjugate [facility] 1998 poliovirus vaccine, inactivated [facility] 1998 diphtheria, tetanus toxoids and acellular pertussis vaccine [facility] 1998 hepatitis B vaccine, pediatric or pediatric/adolescent dosage [facility] 1998 hepatitis B vaccine, pediatric or pediatric/adolescent dosage [facility] Payers Date Payer Category Payer Unknown [facility] [id number] 2022-Present [address] [place] [address] [place] [address] [employer] [id number]. [id number] 2022 Private Health Insurance [employer] [id number]. [id number] 1998 Unknown [id number] 2.16.840.1.694875.3.579.2. 900 1998 Unknown [id number] 2.16.840.1.448031.3.579.2. 900 1998 Unknown [id number] 2.16.840.1.913536.3.579.2. 900 1998 Unknown [id number] 2.16.840.1.598140.3.579.2. 900 1998 Unknown [id number] 2.16.840.1.803177.3.579.2. 593 1998 Unknown [id number] 2.16.840.1.843520.3.579.2. 593 1998 Unknown [id number] 2.16.840.1.773091.3.579.2. 593 1998 Unknown [id number] 2.16.840.1.975765.3.579.2. 593 1998 Unknown [id number] 2.16.840.1.897857.3.579.2. 593 1998 Unknown [id number] 2.16.840.1.148672.3.579.2. 593 1998 Unknown [id number] 2.16.840.1.857297.3.579.2. 593 1998 Unknown [id number] 2.16.840.1.174210.3.579.2. 593 1998 Unknown [id number] 2.16.840.1.939974.3.579.2. 593 1998 Unknown [id number] 2.16.840.1.955747.3.579.2. 593 1998 Unknown [id number] 2.16.840.1.549393.3.579.2. 593 1998 Unknown [id number] 2.16.840.1.489936.3.579.2. 593 1998 Unknown [id number] 2.16.840.1.722216.3.579.2. 593 1998 Unknown [id number] 2.16.840.1.357870.3.579.2. 593 1998 Unknown [id number] 2.16.840.1.686161.3.579.2. 173 1998 Unknown [id number] 2.16.840.1.564273.3.579.2. 173 1998 Unknown [id number] 2.16.840.1.148535.3.579.2. 173 1998 Unknown [id number] 2.16.840.1.867836.3.579.2. 173 1998 Unknown [id number] 2.16.840.1.202932.3.579.2. 173 1998 Unknown [id number] 2.16.840.1.002936.3.579.2. 9 1998 Unknown [id number] 2.16.840.1.710194.3.579.2. 1258 1998 Unknown [id number] 2.16.840.1.548793.3.579.2. 1259 1998 Unknown [id number] 2.16.840.1.516191.3.579.2. 1258 1998 Unknown [id number] 2.16.840.1.548842.3.579.2. 9 1998 Unknown [id number] 2.16.840.1.833794.3.579.2. 1259 1998 Unknown [id number] 2.16.840.1.620103.3.579.2. 1259 1998 Unknown [id number] 2.16.840.1.571532.3.579.2. 1259 1998 Unknown [id number] 2.16.840.1.363250.3.579.2. 125 1998 Unknown [id number] 2.16.840.1.461579.3.579.2. 1259 1998 Unknown [id number] 2.16.840.1.610500.3.579.2. 1259 1959 Self-pay 1959 Unknown [id number] 1.2.840.846472.1.13.239.2. 7.3.788439.315 1959 Unknown [id number] 1959 Unknown [id number] Unknown [id number] 2.16.840.1.791564.3.579.2. 593 Social History Date Type Detail Facility Start: 03-03-2020 End: 12-31-2022 Tobacco smoking status NHIS Never smoker [place] Start: 03-03-2020 End: 12-31-2022 Tobacco use and exposure Never used [place] Start: 03-03-2020 End: 05-12-2021 Alcohol intake Current drinker of alcohol (finding) [place] Start: 06-19-2017 Alcohol Comment social [place], [place] Start: 1998 Sex Assigned At Not on file M [place] Start: 05-01-2020 End: 03-08-2022 History SDOH Financial 5 [place] Start: 05-01-2020 End: 03-08-2022 History SDOH Food Worry 1 [place], [place] Start: 05-01-2020 History SDOH Transpo rt Med 2 [place] Exposure to SARS-CoV -2 (event) Not sure Start: 05-01-2024 End: 11-12-2024 Alcoholic beverage intake [facility] Start: 05-01-2024 End: 11-14-2024 [facility] of [facility] function [facility] Start: 05-01-2024 End: 11-14-2024 Tobacco use panel [facility] How hard is it for y ou to pay for the very basics like food, housing, medical care, and heating Not hard at all [facility] [place] [employer] (I/We) worried vicente er (my/our) food would run out before (I/we) got money to buy more. Never true [facility] [employer] Start: 1998 Sex assigned at Female [facility] [employer] Start: 05-20-2024 Gender identity Identifies as female gender (finding) [facility] [employer] Start: 07-05-2023 End: 04-03-2025 Alcoholic beverage intake Lifetime non-drinker (finding) [facility] Start: 09-30-2024 [facility] Has the electric, Cactus s, oil, or water company threatened to shut off services in your home in past 12Mo No [facility] [employer] Start: 09-02-2012 Sex Female (finding) [facility] [employer] [facility] Medical Equipment Procedure Code Equipment Code Equipment Origin al Text Equipment Identifier Dates Use as instructed [id number] Start: 01-15-2025 End: 01-15-2026 Inject 1 each un tino the skin Daily [id number] Start: 04-07-2025 End: 07-16-2025 Goals Date Patient Goal Desired Activity /State Personal health goal Clinical Notes 03-20-2023 to 04-14-2025 JOSEPH Bowie - 04/14/2025 3:20 PM JOSEPH Stevens - 04/03/2025 3:30 PM Skyler Foy DO - 03/12/2025 3:50 PM Leona Li NP - 02/26/2025 3:30 PM JOSEPH Stevens - 02/11/2025 2:10 PM EDT Note Date & Type Note Facility 04-14-2025 History of Present illness Narrative Reason for [...] Frequent UTI 11/30/2020 23 weeks gestation of ([facility]) 02/26/2025 Elevated blood sugar level 02/26/2025 Resolved Ambulatory Problems Diagnosis Date Noted Missed period 01/13/2023 Past Medical History: Diagnosis Date GDM (gestational diabetes mellitus) ([facility]) HISTORY PAST MEDICAL HISTORY SOCIAL HISTORY Past Medical History: Diagnosis Date GDM (gestational diabetes mellitus) ([facility]) Social History Tobacco Use Smoking status: Never [...] reviewed. Vitals: Estimated body mass index is 36.64 kg/m as calculated from the following: Height as of 01/30/23: 5' 6 . Weight as of this encounter: 227 lb. BP: 110/60 Patient's last menstrual period was 09/16/2024. ASSESSMENT & PLAN ICD-10-CM 1. Third trimester ([facility]) Z34.93 POCT urinalysis dipstick manually resulted 2. 30 weeks gestation of ([facility]) Z3A.30 Return OB: Patient presents today for a routine obstetrics appointment. Patient is currently 30w0d . Patient states she is doing well but has complaints of being tired due to current . Patient has verbalizes frequent movement. labor precautions was discussed/given and patient was instructed to perform kick counts three times a day. Blood sugars are improved with 10units at night Orders Placed This Encounter Procedures POCT urinalysis dipstick manually resulted Follow Up: Patient is to return to office in 2 week for routine OB appointment. Documented by JOSEPH Bowie on behalf of: JOSEPH Bowie documented in this encounter [facility] 04-03-2025 History of Present illness Narrative Reason [...] Frequent UTI 11/30/2020 23 weeks gestation of ([facility]) 02/26/2025 Elevated blood sugar level 02/26/2025 Resolved Ambulatory Problems Diagnosis Date Noted Missed period 01/13/2023 Past Medical History: Diagnosis Date GDM (gestational diabetes mellitus) ([facility]) HISTORY PAST MEDICAL HISTORY SOCIAL HISTORY Past Medical History: Diagnosis Date GDM (gestational diabetes mellitus) ([facility]) Social History Tobacco Use Smoking status: Never [...] PLAN ICD-10-CM 1. 28 weeks gestation of ([facility]) Z3A.28 POCT urinalysis dipstick manually resulted US OB follow up transabdominal approach US biophysical profile w non stress test 2. Third trimester ([facility]) Z34.93 POCT urinalysis dipstick manually resulted US OB follow up transabdominal approach US biophysical profile w non stress test 3. Dizziness R42 CBC and differential CBC and differential 4. Gestational diabetes mellitus (GDM), antepartum, gestational diabetes method of control unspecified ([facility]) O24.419 US OB follow up transabdominal approach [...] of: JOSEPH Bowie documented in this encounter [facility] 03-12-2025 History of Present illness Narrative [...] Frequent UTI 11/30/2020 23 weeks gestation of ([facility]) 02/26/2025 Elevated blood sugar level 02/26/2025 Resolved Ambulatory Problems Diagnosis Date Noted Missed period 01/13/2023 Past Medical History: Diagnosis Date GDM (gestational diabetes mellitus) ([facility]) No family history on file. Social History [...] nursing note reviewed. Exam conducted with a inker present. Vitals: Estimated body mass index is 36.12 kg/m as calculated from the following: Height as of 01/30/23: 5' 6 . Weight as of this encounter: 223 lb 12.8 oz. BP: 100/70 Patient's last menstrual period was 09/16/2024. Assessment/Plan Encounter Diagnosis: ICD-10-CM 1. 25 weeks gestation of ([facility]) Z3A.25 POCT urinalysis dipstick manually resulted 2. Second trimester ([facility]) Z34.92 POCT urinalysis dipstick manually resulted 3. [...] Mukul Foy DO documented in this encounter [facility] 02-26-2025 History of Present illness Narrative [...] Frequent UTI 11/30/2020 23 weeks gestation of ([facility]) 02/26/2025 Elevated blood sugar level 02/26/2025 Resolved Ambulatory Problems Diagnosis Date Noted Missed period 01/13/2023 Past Medical History: Diagnosis Date GDM (gestational diabetes mellitus) ([facility]) HISTORY PAST MEDICAL HISTORY SOCIAL HISTORY Past Medical History: Diagnosis Date GDM (gestational diabetes mellitus) ([facility]) Social History Tobacco Use Smoking status: Never [...] nursing note reviewed. Exam conducted with a inker present. Vitals: Estimated body mass index is 35.96 kg/m as calculated from the following: Height as of 01/30/23: 5' 6 . Weight as of this encounter: 222 lb 12.8 oz. BP: 110/70 Patient's last menstrual period was 09/16/2024. ASSESSMENT & PLAN ICD-10-CM 1. 23 weeks gestation of ([facility]) Z3A.23 POCT urinalysis dipstick manually resulted pantoprazole [...] Mukul Foy DO documented in this encounter [facility] 02-11-2025 History of Present illness Narrative [...] History: Diagnosis Date GDM (gestational diabetes mellitus) ([facility]) HISTORY PAST MEDICAL HISTORY SOCIAL HISTORY Past Medical History: Diagnosis Date GDM (gestational diabetes mellitus) ([facility]) Social History Tobacco Use Smoking status: Never [...] ASSESSMENT & PLAN ICD-10-CM 1. Second trimester ([facility]) Z34.92 metFORMIN XR (Glucophage-XR) 500 MG 24 hr tablet POCT urinalysis dipstick manually resulted 2. 20 weeks gestation of ([facility]) Z3A.20 metFORMIN XR (Glucophage-XR) 500 MG 24 [...] Mukul Foy DO documented in this encounter [facility] 01-15-2025 History of Present illness Narrative [...] History: Diagnosis Date GDM (gestational diabetes mellitus) ([facility]) HISTORY PAST MEDICAL HISTORY SOCIAL HISTORY Past Medical History: Diagnosis Date GDM (gestational diabetes mellitus) ([facility]) Social History Tobacco Use Smoking status: Never [...] nursing note reviewed. Exam conducted with a inker present. Vitals: Estimated body mass index is 34.19 kg/m as calculated from the following: Height as of 01/30/23: 5' 6 . Weight as of this encounter: 211 lb 12.8 oz. BP: 118/72 Patient's last menstrual period was 09/16/2024. ASSESSMENT & PLAN ICD-10-CM 1. Second trimester ([facility]) Z34.92 Alpha fetoprotein, maternal Alpha fetoprotein, maternal 2. 17 weeks gestation of ([facility]) Z3A.17 Alpha fetoprotein, maternal Alpha fetoprotein, maternal 3. Vaginal discharge N89.8 SURESWAB(R) ADVANCED VAGINITIS PLUS, TMA 4. STD exposure Z20.2 CHLAMYDIA TRACHOMATIS (GENITO/STI) Neisseria gonorrhea DNA probe, direct 5. Screening, , for anatomic survey ([facility]) Z36.89 US OB 14+ weeks anatomy scan 6. Gastroesophageal reflux in ([facility]) O99.619 omeprazole (PriLOSEC) [address] capsule K21.9 7. Gestational diabetes mellitus (GDM), antepartum, gestational diabetes method of control unspecified ([facility]) O24.419 glucose blood test strip Return OB/Annual [...] of: alesha bowie documented in this encounter [facility] 12-18-2024 History of Present illness Narrative [...] by JOSEPH Bowie documented in this encounter [facility] 11-14-2024 History of Present illness Narrative [...] Nurse Note: Patient uncertain of doing the [place] screening. Pt was advised both labs and [...] or undercooked meat, and stay away from [facility]. Patient has also been advised to [...] or questions. Nurse Visit Completed by: Elizabeth Wrae MA documented in this encounter [facility] 07-15-2024 History of Present illness Narrative [...] nursing note reviewed. Exam conducted with a inker present. Vitals: Estimated body mass index is [...] Mukul Foy DO documented in this encounter [facility] 08-06-2023 Note HNO ID: [id number] Author: LANG CARREON APRN.[facility] Service: ? Author Type: Nurse Practitioner Type: Progress Notes Filed: 08/06/2023 10:44 Note Text: Telemedicine Visit - Distance Health Virtual Visit Note I have communicated my name and active licensure. The patient's identity and physical location were verified at the time of this visit. Either the patient or their legal auto service representative has been informed of the risks and benefits of -- and alternatives to -- treatment through a remote evaluation and consents to proceed with the evaluation remotely. Patient seen on virtual platforms, [employer]. Location [place] History of Presenting Illness: Vinny Downey 22 [...] - Sleep with head elevated due to jngv-jxwtf-xite increases cough - Continue Flonase - Flonase: [...] care - All questions answered Lang Carreon APRN.[facility] 07-11-2023 Note [facility] Consult Note Reason [...] recent labs Rajendra Sheffield MD Cardiac Electrophysiology [facility] 07-11-2023 Note [facility] Echo was not performed that was ordered at last apt in Feb 2023 by Israel Champion CNP. Does not notice palpitations as often. Denies chest pain, SOB, and lightheadedness. Review of Systems Cardiovascular: Positive for palpitations (less often). All other systems reviewed and are negative. [facility] 03-30-2023 Note -developed anemia po stpartum s/p -hgb 10.8 per recent labs [facility] 03-30-2023 Note - could be related t o being , anemia -monitor and echo to rule out cardiac concern [facility] 03-30-2023 Note - [facility] - 30-day event monit or - we will hold off on starting medication until follow-up [facility] 03-20-2023 Note New patient here to [...] All other systems reviewed and are negative. [facility] 03-20-2023 Note [facility] Consult [facility] [...] are attached to (more content not included)... [facility] Evaluation note Diagnosis Frequent UTI Urinary tract infection, site not specified documented in this encounter [employer] Phone: evaluation note* Diagnosis Amenorrhea Absence of menstruation documented in this encounter [employer] Phone: evaluation note* Diagnosis Elevated liver enzymes Nonspecific elevation of levels of transaminase or lactic acid dehydrogenase (LDH) Mixed hyperlipidemia documented in this encounter [facility] [place] [employer] [facility]* Diagnosis Well woman exam with routine gynecological exam Routine gynecological examination [facility] Diagnosis Missed menses 8 weeks gestation of , unspecified gestational age Encounter for supervision of normal first in first trimester History of miscarriage Personal history of other genital system and obstetric disorders [facility]* Diagnosis Second trimester state, incidental 12 weeks gestation of Subchorionic hematoma in first trimester, single or unspecified fetus Diabetes mellitus screening Screening for diabetes mellitus [facility] Diagnosis Subchorionic hematoma, antepartum, first trimester, not applicable or unspecified fetus documented in this encounter [facility] [place] [employer]* Diagnosis Second trimester ([facility]) state, incidental 17 weeks gestation of ([facility]) Vaginal discharge Leukorrhea, not specified as infective STD exposure Screening, , for anatomic survey ([facility]) Encounter for anatomic survey Gastroesophageal reflux in ([facility]) Gestational diabetes mellitus (GDM), antepartum, gestational diabetes method of control unspecified ([facility]) [facility] Diagnosis Second trimester ([facility]) state, incidental 20 weeks gestation of ([facility]) [facility] Diagnosis 23 weeks gestation of ([facility]) Elevated blood sugar level Other abnormal glucose Gastroesophageal reflux disease without esophagitis Esophageal reflux [facility]* Diagnosis 25 weeks gestation of ([facility]) Second trimester ([facility]) state, incidental Gastroesophageal reflux disease without esophagitis Esophageal reflux [facility]* Diagnosis 28 weeks gestation of ([facility]) Third trimester ([facility]) state, incidental Dizziness Dizziness and giddiness Gestational diabetes mellitus (GDM), antepartum, gestational diabetes method of control unspecified ([facility]) History of miscarriage Personal history of other genital system and obstetric disorders Anemia, unspecified type UTI symptoms [facility] Diagnosis Third trimester ([facility]) state, incidental 30 weeks gestation of ([facility]) documented [facility] this encounter [facility] N[facility]* Imaging (Routine) - Open Specialty Diagnoses / Procedures Referred By Ever winslow Referred To Contact Radiology Diagnoses Subchorionic hematoma, antepartum, first trimester, not applicable or unspecified fetus Procedures US OB LESS THAN 14 WEEKS SINGLE OR FIRST GESTATION W DOPPLER US OB TRANSVAGINAL Mukul Foy MD [address] [place] [address] Phone: tel: Referral ID Status Reason Start Date Expiration Date Visits Re quested Visits Authorized [id number] Open 12/19/2024 12/19/2025 1 1 [facility] Health Assessments Diagnosis Screening for cervical cancer Screening for malignant neoplasm of the cervix Encounter for annual routine gynecological examination Diagnosis Encounter for screening for HIV Other fatigue Wellness examination Advance Directives No Advanced Directives Records FoundDocuments on File Type Date Recorded Patient General Dentist Expl anation Advance Directives and Living Will Power of Cyber Intelligence Analyst Documents on File Type Date Recorded Patient General Dentist Expl anation ACP-Advance Directive ACP-Power of Cyber Intelligence Analyst Documents on File Type Date Recorded Patient General Dentist Expl anation ACP-Advance Directive ACP-Power of Cyber Intelligence Analyst Summary Purpose Family History No Family History Records FoundNo Family History Records FoundNo Family History Records FoundNo Family History Records FoundNo Family History Records FoundNo Family History Records FoundNo Family History Records Found Reason for Referral Status Reason Specialty Diagnoses / Procedures Referre d By Contact Referred To Contact Closed Radiology Diagnoses Frequent UTI Procedures US RENAL COMPLETE Lorena Ricks, DIRECTOR OF PRIMARY CARE - [employer]ER [address] [place] [address] Additional Source Comments INFORMATION SOURCE (unrecogn ized section and content) DATE CREATED AUTHOR [facility] DATE CREATED AUTHOR AUTHOR'S ORGANIZ ATION 09/26/2021 [facility] DATE CREATED AUTHOR AUTHOR'S ORGANIZ ATION 12/30/2022 [facility] DATE CREATED AUTHOR AUTHOR'S ORGANIZ ATION 08/03/2023 [facility] DATE CREATED AUTHOR AUTHOR'S ORGANIZ ATION 08/07/2023 [facility] DATE CREATED AUTHOR AUTHOR'S ORGANIZ ATION 01/09/2025 Deanna lui DATE CREATED AUTHOR AUTHOR'S ORGANIZ ATION 04/15/2025 [facility] EPIC Reason for Visit (unrecogniz ed section and content) Status Reason Specialty Diagnoses / Procedures Referre d By Contact Referred To Contact Closed Radiology Diagnoses Frequent UTI Procedures US RENAL COMPLETE Lorena Ricks, DIRECTOR OF PRIMARY CARE - [employer] [address] [place] [address] Reason Comments Gynecologic Exam Reason Comments Amenorrhea Reason Comments Routine Visit Reason Comments Routine Visit STI Screening Care Teams (unrecognized sec tion and content) Shopfitter Relationship Specialty Start Date End Date Ynes Rodriguez, DIRECTOR OF PRIMARY CARE - [employer] [address] [place] [address] PCP - General Family Nurse Practitioner 05/04/20 Shopfitter Relationship Specialty Start Date End Date Ynes Rodriguez, DIRECTOR OF PRIMARY CARE - [employer] [address] [place] [address] PCP - General Family Nurse Practitioner 05/04/20 Shopfitter Relationship Specialty Start Date End Date Ynes Rodriguez, DIRECTOR OF PRIMARY CARE - [employer] [address] [place] [address] [address] [place] [address] PCP - General Family Nurse Practitioner 08/02/22 Shopfitter Relationship Specialty Start Date End Date Ynes Rodriguez, DIRECTOR OF PRIMARY CARE - [employer] [address] [place] [address] [address] [place] [address] PCP - General Family Nurse Practitioner 08/02/22 Shopfitter Relationship Specialty Start Date End Date Ynes Rodriguez, DIRECTOR OF PRIMARY CARE - [employer] [address] [place] [address] [address] [place] [address] PCP - General Family Nurse Practitioner 08/02/22 [...] BE BASED ON THE PRIMARY CLINICAL RECORDS. [employer], [facility]. provides no warranty or guarantee of the accuracy or completeness of information in this document.
--- NOTE | 2025-04-30 15:56 | US_ITS ---
[place] [id number] Patient Name: VINNY HERRERA MRN: [id number] date: 2000 Sex: F Assigned Patient Location: [facility] Current Patient Location: Accession/Order Number: [id number] Exam Date: 04/30/2025 15:57 Report Date: 04/30/2025 22:59 At the request of: BRITT HOLDER DO Procedure: US OB BPP w non-stress Ultrasound biophysical profile INDICATION: Gestational diabetes COMPARISON: 04/05/2025 FINDINGS/IMPRESSION:: Fetus cephalic position. 02/28 score biophysical profile. heart rate 145 beats per minutes. JAMAL 12.7 cm. Impression dictated by: Chevy Moreland M.D. 04/30/2025 10:59 PM Dictation Location[facility] Electronically authenticated by: [id number] Y Date: 04/30/2025 22:59
[2025-04-30 16:21] VITALS: BP 120/69; PULSE 90
== END 2025-04-30 16:45 | disposition home or self-care (01) ==
LOC: US 15:48 → FBC 15:49
PROVIDERS: PCP Nurse Practitioner Women's Health; Visit Provider Obstetrics & Gynecology
DX: O24.419 Gestational diabetes mellitus in pregnancy, unspecified control (principal); Z87.59 Personal history of other complications of pregnancy, childbirth and the puerperium; Z3A.32 32 weeks gestation of pregnancy
CPT/HCPCS: 76818

== ENCOUNTER 2025-05-03 11:59 | Outpatient (OUT) | payer OTHER, SELFPAY ==
--- OUTSIDE RECORDS SUMMARY | 2020-06-22 11:27 | XMS_ITS | Continuity of Care Document ---
Author Organization [employer] [facility] Address [address] [place] [address] Phone Care Team Providers [facility] Pricing Consultant Name Role Phone Valerie Ernandez Unavailable Chen vailable Allergies, Adverse Reactions, Alerts Substance Reaction Status Criticality No Known Allergies Active No Inform ation Medications Medication Instructions Dosage Effective Dates (start - stop) Status Comments fluconazole 150 mg tablet take 1 tablet by oral route once 150 MG - Active Flonase Allergy Relief 50 mcg/actuation nasal spray,suspension inhale 2 spray by intranasal route every day in each nostril 100 MCG - Active trazodone 50 mg tablet take 1 tablet by oral route 3 times every day after meals 50 MG - Active Claritin 5 mg/5 mL oral solution take 10 milliliter by oral route every day 10 MG - Active Shania 3 mg-0.03 mg tablet take 1 tablet by oral route every day 1.00 tablet - Active Procedures Procedure Date OFFICE/OUTPATIENT VISIT, EST URINALYSIS, AUTO, W/O SCOPE OFFICE/OUTPATIENT VISIT, NEW Advance Directives Directive Yes / No Effective Date File Name No Information Encounters Encounter Description Practice Location Reason(s) For Visit Diagnoses Date Provider Providers Copied on Encounter [employer], [address], [address], [place] tel:[phone] [facility] No Information Livier Padilla. [address] [place], [address], [place]. tel:[phone] OFFICE/OUTPAT IENT VISIT, [facility], [address] [place] [address] [address], [place], [place], [address], tel:[phone] [facility] COVID EXPOSURE AND SYMPTOMS (chief complaint) Body achesFatigue, unspecified typeExposure to COVID-19 virus [facility]mark[facility] LUX-MUNA Padilla. [address], [place], [address], [place]. tel:[phone] Referring Provider: Valerie Maier APRNMUNA, [address] [place], [address] . tel:[phone] OFFICE/OUTPAT IENT VISIT, [facility], [address] [place] [address] [address], [place], [place], [id number], tel:[phone] [facility] UTI (chief complaint) Dysuria Titus Albarran. [address], [place], [address], [place]. tel:[phone] Referring Provider: Avis Qureshi NP, [address] [place], [address] . tel:[phone] Family History Family Member Type Diagnosis Age At Onset No Information Payers Payer name Insurance type Covered constitution party ID Bill diggs(s) Thad TODD [id number] Social History Type Description Quantity Date Captured Comments Sex Female Smoking Status No Information Chief Complaint And Reason For Visit No Information Reason For Referral Reason For Referral No Information Plan Of Treatment Date Type Action Status Future Order: Lab Order COVID 19 , RT-PCR ([id number]), Ordered on: Ordered History Of Present Illness Encounter Date Complaint History Of Prese nt Illness COVID EXPOSURE AND S YMPTOMS (comments) 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 PATIENT STATES THAT 2 PEOPLE IN HER STORE HAVE TESTED POSITIVE FOR COVID-19. PATIENT STATES THAT HER LAST EXPOSURE TO THEM WAS ON May. PATIENT STATES LAST NIGHT SHE DEVELOPED SOME FATIGUE. PATIENT STATES THAT HER EMPLOYER IS MAKING THEM ALL COME TO WORK EVEN THOUGH THEY BEEN EXPOSED TO COVID-19. COVID EXPOSURE AND SYMPTOMS The symptoms began 24 hours ago. The symptoms are reported as being mild. The symptoms occur randomly. Associated symptoms include increased fatigue muscle aches chills. The client states the symptoms are acute and are of new onset. on the of this month patient states that she had been exposed to two employees at work who were not wearing masks at her place of employment and now she is having symptoms UTI Onset: 1 Week. T he severity of the problem is mild. The problem has not changed. The symptoms are constant. Presenting/Initial symptoms include burning, frequency and urgency. Context additional comments: nothing. Denies aggravating factors. Relieving factors additional comments: taking AZO with no relief. Associated symptoms include dysuria and frequency. Pertinent negatives include abdominal pain, fatigue, fever, flank pain, hematuria, hesitancy, nausea, urgency, vaginal discharge or vomiting. Functional Status Date Functional Assessmen t No Information Instructions Date Instruction Additional Infor cheng COVID 19 CARE INSTRU CTIONS SUPPORTIVE CARE FOR VIRAL ILLNESS INCLUDES: INCREASE FLUID WELL SODIUM INTAKE WITH HYDRATING FLUIDS SUCH WATER, AND SUPPLEMENTATION WITH PEDIALYTE, GATORADE OR POWERADE MAY BE HELPFUL. COOL MIST HUMIDIFIER SALINE NASAL SPRAY AT LEAST ONCE EVERY MORNING TO CLEAN OUT YOUR SINUSES AND NEEDED FOR CONGESTION. YOU CAN OBTAIN THIS OVER THE COUNTER IF YOUR INSURANCE DOES NOT PAY FOR OVER THE COUNTER MEDS. YOU MAY USE A AUDREY POT INSTEAD OF SALINE NASAL SPRAY, BUT YOU HAVE TO USE STERILE DISTILLED WATER AND CLEAN THE AUDREY POT WITH SOAP AND WATER AFTER USE. THROAT LOZENGES, POPSICLES NEEDED FOR DISCOMFORT (IF AGE APPROPRIATE) FLONASE 1-2 SPRAYS TO EACH NOSTRIL DAILY AT BEDTIME (THIS IS AVAILABLE OVER THE COUNTER IF YOUR INSURANCE DOES NOT PAY FOR OTC MEDS). GARGLE WITH OVER THE COUNTER MOUTHWASH AND SPIT AFTER TAKING FLONASE. SALINE NASAL SPRAY AT LEAST ONCE EVERY MORNING TO CLEAN OUT YOUR SINUSES AND NEEDED FOR CONGESTION. YOU CAN OBTAIN THIS OVER THE COUNTER IF YOUR INSURANCE DOES NOT PAY FOR OVER THE COUNTER MEDS. YOU MAY USE A AUDREY POT INSTEAD OF SALINE NASAL SPRAY, BUT YOU HAVE TO USE STERILE DISTILLED WATER AND CLEAN THE AUDREY POT WITH SOAP AND WATER AFTER USE. TYLENOL/IBUPROFEN OVER THE COUNTER NEEDED FOR DISCOMFORT/ FEVER PER AGE/WEIGHT PACKAGE INSTRUCTIONS. AVOID TYLENOL IF HISTORY OF LIVER DISEASE OR IF YOU PREVIOUSLY HAVE BEEN TOLD BY A HEALTHCARE PROVIDER NOT TO TAKE TYLENOL. AVOID IBUPROFEN IF: HISTORY OF KIDNEY DISEASE, HIGH BLOOD PRESSURE, IF YOU ALREADY TAKE BLOOD THINNERS, OR IF YOU PREVIOUSLY HAVE BEEN TOLD BY A HEALTHCARE PROVIDER NOT TO TAKE IBUPROFEN OR NSAIDS. YOU MAY USE OVER THE COUNTER DELSYM NEEDED FOR COUGH WELL IF YOU ARE A [facility] STUDENT LIVING ON CAMPUS PLEASE CALL YOUR [facility] COVID HOTLINE NUMBER IS [phone] RED FLAGS THAT WOULD WARRANT ER ASSESSMENT CAN INCLUDE BUT ARE NOT LIMITED TO THE FOLLOWING: UNCONTROLLABLE NAUSEA OR VOMITING, SIGNS OF DEHYDRATION (NO URINE > 8 HOURS, NO TEARS, DRY MUCUS MEMBRANES), ALTERATIONS IN MENTAL STATUS (LISTLESSNESS, LETHARGY), CHEST PAIN OR SIGNS OF BREATHING DISTRESS SUCH : TURNING BLUE OR STRUGGLING TO BREATHE, OR ANY CONCERNS YOUR SYMPTOMS ARE EMERGENT. IF NO IMPROVEMENT OR WORSENING OF SYMPTOMS, YOU SHOULD SEEK REEVALUATION. PT EDUCATION: SUSPECTED COVID CASES: COVID TESTS ARE RUN AT [facility] AND ARE TYPICALLY DONE IN 24-48 HOURS. PLEASE SIGN UP FOR THE PATIENT PORTAL THOUGH THE [facility] YOUR RESULTS WILL SHOW UP THERE. IF YOU DO NOT GET AN EMAIL TO SET UP YOUR PATIENT PORTAL PLEASE CALL [phone] Monday RIDAY 8:00AM 4:30PM HOW TO DISCONTINUE HOME ISOLATION: PEOPLE WHO HAVE HAD SYMPTOMS OF COVID-19 WHO HAVE STAYED HOME (HOME ISOLATED) CAN STOP HOME ISOLATION UNDER THE FOLLOWING CONDITIONS (PER CDC GUIDELINES OF 05.19.2020): YOU HAVE HAD NO FEVER FOR AT LEAST 24 HOURS (THAT IS ONE FULL DAY OF NO FEVER WITHOUT THE USE MEDICINE THAT REDUCES FEVERS, SUCH TYLENOL, IBUPROFEN, NAPROXEN, OR ASPIRIN) AND OTHER SYMPTOMS HAVE IMPROVED AND AT LEAST 10 DAYS HAVE PASSED SINCE YOUR SYMPTOMS FIRST APPEARED EXPOSURE ISOLATION: PEOPLE WHO HAVE HAD A KNOWN EXPOSURE TO SOMEONE WITH CONFIRMED COVID-19, BUT HAVE NOT YET DEVELOPED SYMPTOMS NEED TO QUARANTINE (HOME ISOLATE) FOR AT LEAST 14 DAYS AFTER LAST KNOWN EXPOSURE TO PERSON WITH COVID-19. WHO NEEDS TO QUARANTINE? PEOPLE WHO HAVE BEEN IN CLOSE CONTACT WITH SOMEONE WHO HAS COVID-19 E XCLUDING PEOPLE WHO HAVE HAD COVID-19 WITHIN THE PAST 3 MONTHS.= PEOPLE WHO HAVE TESTED POSITIVE FOR COVID-19 DO NOT NEED TO QUARANTINE OR GET TESTED AGAIN FOR UP TO 3 MONTHS LONG THEY DO NOT DEVELOP SYMPTOMS AGAIN. PEOPLE WHO DEVELOP SYMPTOMS AGAIN WITHIN 3 MONTHS OF THEIR FIRST BOUT OF COVID-19 MAY NEED TO BE TESTED AGAIN IF THERE IS NO OTHER CAUSE IDENTIFIED FOR THEIR SYMPTOMS. WHAT COUNTS CLOSE CONTACT? YOU WERE WITHIN 6 FEET OF SOMEONE WHO HAS COVID-19 FOR A TOTAL OF 15 MINUTES OR MORE YOU PROVIDED CARE AT HOME TO SOMEONE WHO IS SICK WITH COVID-19 YOU HAD DIRECT PHYSICAL CONTACT WITH THE PERSON (HUGGED OR KISSED THEM) YOU SHARED EATING OR DRINKING UTENSILS THEY SNEEZED, COUGHED, OR SOMEHOW GOT RESPIRATORY DROPLETS ON YOU [email or web address] OV/YH-JDO-ITK-SICK/QUARANTINE.HTML (UPDATED OF 05.19.2020) CONTACT YOUR LOCAL HEALTH DEPARTMENT FOR FURTHER INFORMATION. WHEN TO SEEK MEDICAL ATTENTION IF YOU DEVELOP EMERGENCY WARNING SIGNS FOR COVID-19 GET MEDICAL ATTENTION IMMEDIATELY. EMERGENCY WARNING SIGNS INCLUDE: TROUBLE BREATHING PERSISTENT PAIN OR PRESSURE IN THE CHEST NEW CONFUSION, INABILITY TO WAKE OR STAY AWAKE BLUISH LIPS OR FACE THIS LIST IS NOT ALL INCLUSIVE. PLEASE CONSULT YOUR MEDICAL PROVIDER FOR ANY OTHER SYMPTOMS THAT ARE SEVERE OR CONCERNING. COVID-19 HOTLINE:[id number]-ASK-ODH ( ) HOW TO HELP STOP THE SPREAD OF GERMS: AVOID CLOSE CONTACT WITH PEOPLE WHO ARE SICK. COVER YOUR COUGH OR SNEEZE WITH A TISSUE THEN THROW THE TISSUE IN THE TRASH. WASH HANDS AFTER DISCARDING TISSUE. AVOID TOUCHING EYES, NOSE AND MOUTH. IF YOU TOUCH YOUR FACE, WASH YOUR HANDS. CLEAN AND DISINFECT FREQUENTLY TOUCHED OBJECTS AND SURFACES. STAY HOME WHEN YOU ARE SICK, EXCEPT TO GET MEDICAL CARE. WASH YOUR HANDS OFTEN WITH SOAP AND WARM WATER FOR AT LEAST 20 SECONDS. RESOURCES FOR MORE INFORMATION: [email or web address] OV/INDEX.HTML HTTPS://[email or web address]/PORTAL /GOV/COVID-19/HOME HTTPS://[email or web address]/ OV/SB-WXO-IZZ-SICK/[email or web address]-PUYK.HTML Related to Exposure to COVID-19 virus Increase fluids and rest.May continue over the counter urinary pain relief. Take antibiotic completely. Return to [facility] if not improving. Related to Dysuria Assessments Type Assessment Date No Information Patient Care Teams Name Effective Dates (start - stop) Status Members No Information
--- OUTSIDE RECORDS SUMMARY | 2025-04-30 15:00 | XMS_ITS | Encounter Summary ---
Author Organization [facility] Address [address] [place] [address] Care Team Providers Care Refrigerating Technician Name Role Phone Unavailable Primary Care Provider Unavailabl e Reason for Visit * Reason Comments Routine Visit Encounter Details Date Type Department Care Team ([facility] Contact Info) Description 04/30/2025 3:00 PM EDT Routine [facility] [address] [place] [address] Tiffany Li, ASHWIN [address] [place] [address] Third trimester ([facility]); 32 weeks gestation of ([facility]) Social History Tobacco Use Types Packs/Day Years Used Date Smoking Tobacco: Never Smokeless Tobacco: Never Alcohol Use Standard Drinks/Week Comments Never 0 (1 standard drink = 0.6 oz pur e alcohol) Estimated Date of Delivery Comme nts Yes 06/23/2025 Based on last me nstrual period of 09/16/2024 Sex and Gender Information Value Date Recorded Sex Assigned at Not on file Legal Sex Female 11:47 PM EDT Gender Identity Not on file Sexual Orientation Not on file documented as of this encounter Last Filed Vital Signs Vital Sign Reading Time Taken Comments Blood Pressure 110/70 04/30/2025 3:11 PM EDT Pulse - - Temperature - - Respiratory Rate - - Oxygen Saturation - - Inhaled Oxygen Concentration - - Weight 103 kg (227 lb 6.4 oz) 04/30/2025 3:11 PM EDT Height - - Body Mass Index 36.7 01/30/2023 12:12 PM EDT documented in this encounter Progress Notes * Tiffany [...] Frequent UTI 11/30/2020 23 weeks gestation of ([facility]) 02/26/2025 Elevated blood sugar level 02/26/2025 Resolved Ambulatory Problems Diagnosis Date Noted Missed period 01/13/2023 Past Medical History: Diagnosis Date GDM (gestational diabetes mellitus) ([facility]) HISTORY PAST MEDICAL HISTORY SOCIAL HISTORY Past Medical History: Diagnosis Date GDM (gestational diabetes mellitus) ([facility]) Social History Tobacco Use Smoking status: [...] nursing note reviewed. Exam conducted with a talent assistant present. Vitals: Estimated body mass index is 36.7 kg/m?? as calculated from the following: Height as of 01/30/23: 5' 6 . Weight as of this encounter: 227 lb 6.4 oz. BP: 110/70 Patient's last menstrual period was 09/16/2024. ASSESSMENT & PLAN ICD-10-CM 1. Third trimester ([facility]) Z34.93 2. 32 weeks gestation of ([facility]) Z3A.32 POCT urinalysis dipstick manually resulted [...] documented in this encounter Plan of Treatment Upcoming Encounters Date Type Department Care Team (Late st Contact Info) Description 05/14/2025 2:50 PM EDT Routine [facility] [address] [facility] [place] [phone] Mukul Foy, DO [address] [place], [place] [phone] 07/28/2025 4:00 PM EST Office Visit DIANE SANTO [address] [facility] [place] [address] Mukul Foy, DO [address] [place] [address] documented as of this encounter Goals Goal Patient Goal Type Associated Problems Recent Progress Patient-Stated? Author Reminders Care Plan OB Reminders No Open Scheduling, Background documented as of this encounter Procedures Procedure Name Priority Date/Time Associated Diagnosis Comments POCT URINALYSIS DIPSTICK Routine 04/30/2025 3:19 PM EDT 32 weeks gestation of ([facility]) documented in this encounter Results * (ABNORMAL) POCT urinalysis dipstick manually resulted (04/30/2025 3:19 PM EDT) Color, UA Yellow Clarity, UA Clear Glucose, UA Negative Negative - 1999(110) ++++ mg/dL Bilirubin, UA Negative Negative - 4(70) +++ mg/dL Ketones, UA Negative Negative - 160(16) ++++ mg/dL Spec Grav, UA 1.010 1 - 1.03 Blood, UA Negative Negative - 50 Yunior/mcL pH, UA 6.5 5 - 9 Protein, UA Negative Negative - 1999(20) ++++ mg/dL Urobilinogen, UA 2.0 0.2 - 12 mg/dL Leukocytes, UA 1+ Negative - 500+++ Trip/mcL Nitrite, UA Negative Negative - Positive Urine 04/30/2025 3:19 PM EDT Tiffany Li NP POINT OF CARE TEST ENTER/EDIT ORDERABLES Final Result documented in this encounter Visit Diagnoses Diagnosis Third trimester ([facility]) state, incidental 32 weeks gestation of ([facility]) documented in this encounter Additional Health Concerns Active Problems Noted Date Diagnosed Date OB Reminders 11/29/2024 documented as of this encounter
--- OUTSIDE RECORDS SUMMARY | 2025-05-03 12:01 | XMS_ITS | CCD ---
Author Organization [facility] CliniSynh Care Team Providers Care Professor Of Medicine Name Role Phone Jannette Peña I Primary Care Provider [phone] Ynes Rodriguez Primary Care Provider Fede LUX Ynes ANDRES Primary Care Provide r LAW, MUKUL R Admitting Unavailable LAW, MUKUL R Primary Care Unavailable LAW, MUKUL R Admitting Unavailable LAW, MUKUL R Primary Care Unavailable LAW, MUKUL R Admitting Unavailable LAW, MUKUL R Primary Care Unavailable BERTO LIVE Admitting Unavailabl e LAW, MUKUL R Primary Care Unavailable Fede FIRE REGULATOR - NURSING AIDE, Ynes Conner Primary Care Provide r Unavailable Primary Care Provider Unavailabl e LAW ., DR DE LA TORRE Attending Unavailable MISC, DR YAÑEZ Primary Care Unavailable ORANGE, DR YELENA Henao Consulting Unavailable LAW ., [...] ZIEBER, DR LUIS ALFREDO Forbes Consulting Unavailable ORALIA ., VIRGIL Consulting Unavailable ORALIA ., VIRGIL Attending Unavailable ORALIA ., VIRGIL Admitting Unavailable MISC, DR YAÑEZ Primary Care Unavailable ORALIA ., VIRGIL Consulting Unavailable ORALIA ., VIRGIL Attending Unavailable MISC, DR YAÑEZ Primary Care Unavailable ORALIA ., VIRGIL Admitting Unavailable LAW ., DR DE LA [...] Unavailable MISC, DR YAÑEZ Primary Care Unavailable ORANGE, DR YELENA Henao Consulting Unavailable LAW ., DR DE LA TORRE Attending Unavailable LAW ., DR DE LA TORRE Admitting Unavailable REQUEST, DR JENSEN LISTED Primary Care Unavaila ble LAW ., DR DE LA TORRE Consulting Unavailable RAJENDRA SHEFFIELD Attending Unavailable ISREAL CHAMPION Attending Unavailable Ynes Ngo APRN, CNP Primary Care Provide r Unavailable Primary Care Provider UnavailYNES Zheng Primary Care Unavailable YNES RODRIGUEZ Referring Unavailable YNES RODRIGUEZ Primary Care Unavailable MUKUL FOY Referring Unavailable YNES RODRIGUEZ Primary Care Unavailable YNES RODRIGUEZ Referring Unavailable YNES RODRIGUEZ Primary Care Unavailable VIRGIL BARTON Referring Unavailable YNES RODRIGUEZ Primary Care Unavailable YNES RODRIGUEZ Referring Unavailable MUKUL FOY Attending Unavailable MUKUL FOY Attending Unavailable MUKUL FOY Referring Unavailable MUKUL FOY Attending Unavailable MUKUL FOY Attending Unavailable LAW, MUKUL Attending Unavailable MUKUL FOY Attending Unavailable VIRGIL BARTON Attending Unavailable VIRGIL BARTON Attending Unavailable CEASAR LI Attending Unavailable Medications Current Medications Medication Drug [...] param th once daily Norethin David-Eth Estrad-FE ( 24) 1-20 MG-MCG(24) TABS Indications: Irregular menses Take [...] ml insulin glargine 100 unt/ml pen injector (7 sources) Insulin Analog Sta rt: 5 End [...] trimester (HHS-HCC) , 20 weeks gestation of (HHS-HCC) Take 2 tablets (1,000 mg) by mouth [...] 10/23/2024 Active metoclopramide 10 mg oral tablet (14 sources) Dopamine-2 Receptor Antagonist Start: 03-12-2025 End: [...] pantoprazole 40 mg delayed release oral tablet (17 sources) Proton Pump Inhibitor Start: 02-26-2025 End: 02-26-2026 take 1 tablet by mouth before mealtime pantoprazole (Protonix) 40 MG EC tablet Indications: 23 weeks gestation of ([facility]) , Elevated blood sugar level , [...] polysaccharide iron complex 391 mg oral capsule (12 sources) Start: 04-02-2025 End: 05-02-2025 take 1 [...] accident; Translations: [ENC EXAM AND OBSERVATION FOLLOW [facility]] Onset: 12-12-2022 Episodic Other liver diseases (3 [...] unspecified trimester; Translations: [ state, incidental] Onset: 12-09-2022 Episodic Other screening for suspected conditions (not [...] of ] 02-11-2025 Episodic Residual codes; unclassified (19 sources) Gestation period, 23 weeks; Translations: [23 [...] [30 weeks gestation of ] 04-14-2025 Episodic Residual codes; unclassified (2 sources) Gestation period, 32 weeks; Translations: [32 weeks gestation of ] 04-30-2025 Episodic Unclassified (1 source) Cancer cervix screening [...] Name Value Interpretation Reference Range Facil ity US OB BPP W NON-STRESS on 04-30-2025 [place] [address] Ultrasound Report Signed Patient: VINNY DOWNEY MR#: [id number] : 2000 Acct:[id number] Age/Sex: 24 / F ADM Date: 04/30/25 Loc: US Attending Dr: Mukul Foy D.O. Ordering Physician: Mukul Foy D.O. Date of Service: 04/30/25 Procedure(s): US OB BPP w non-stress Accession Number(s): [id number] cc: Mukul Foy D.O.; Ynes Rodriguez [place] [id number] Patient Name: VINNY DOWNEY MRN: [facility]:[id number] date: 2000 Sex: F Assigned Patient Location: [facility] Current Patient Location: Accession/Order Number: [id number] Exam Date: 04/30/2025 15:57 Report Date: 04/30/2025 22:59 At the request of: MUKUL FOY DO Procedure: US OB BPP w non-stress Ultrasound biophysical profile INDICATION: Gestational diabetes COMPARISON: 04/05/2025 FINDINGS/IMPRESSION: : Fetus cephalic position. 8/8 score biophysical profile. heart rate 145 beats per minutes. JAMAL 12.7 cm. Impression dictated by: Chevy Moreland M.D. 04/30/2025 10:59 PM Dictation Location: RADIO-PC-29 Electronically authenticated by: [id number] Y Date: 04/30/2025 22:59 Dictated By: Chevy Moreland M.D. Signed By: 04/30/252301 DD/ 58 TD/TT: Holistic Nutritionist: [facility] Radiology, Radiologist, MD - 04/30/2025 [place] [address] Ultrasound Report Signed Patient: VINNY DOWNEY MR#: [id number] : 2000 Acct:[id number] Age/Sex: 24 / F ADM Date: 04/30/25 Loc: US Attending Dr: Mukul Foy D.O. Ordering Physician: Mukul Foy D.O. Date of Service: 04/30/25 Procedure(s): US OB BPP w non-stress Accession Number(s): [id number] cc: Mukul Foy D.O.; Ynes Rodriguez WAREHOUSE OPERATOR [place] [address] Patient Name: VINNY DOWNEY MRN: [facility]:[id number] date: 2000 Sex: F Assigned Patient Location: [facility] Current Patient Location: Accession/Order Number: [id number] Exam Date: 04/30/2025 15:57 Report Date: 04/30/2025 22:59 At the request of: MUKUL FOY DO Procedure: US OB BPP w non-stress Ultrasound biophysical profile INDICATION: Gestational diabetes COMPARISON: 04/05/2025 FINDINGS/IMPRESSION: : Fetus cephalic position. 02/28 score biophysical profile. heart rate 145 beats per minutes. JAMAL 12.7 cm. Impression dictated by: Chevy Moreland M.D. 04/30/2025 10:59 PM Dictation Location: [facility]IOEngiverPC-29 Electronically authenticated by: [id number] Y Date: 04/30/2025 22:59 Dictated By: Chevy Moreland M.D. Signed By: 04/30/25 0043 DD/ 58 TD/TT: Holistic Nutritionist: [facility] Radiology Study observation (narrative) [facility] US OB BPP W NON-STRESS Ordered By: Radiologist Radiology on 04-30-2025 [facility] Work Phone: Urinalysis macro (dipstick) panel (U)on 04-30-2025 Bilirubin, UA Negative Negative - 4(70) +++ mg/dL [facility] Blood, UA Negative Negative - 50 Yunior/mcL [facility] Clarity, UA Clear [facility] Color, UA Yellow [facility] Glucose, UA Negative Negative - 1999(110) ++++ mg/dL [facility] Interpretation and review of laboratory results Abnormal [facility] Ketones, UA Negative Negative - 160(16) ++++ mg/dL [facility] Leukocytes, UA 1+ Negative - 500+++ Trip/mcL [facility] Nitrite, UA Negative Negative - Positive [facility] pH, UA 6.5 5 - 9 [facility] Protein, UA Negative Negative - 1999(20) ++++ mg/dL [facility] Spec Grav, UA 1.01 1 - 1.03 [facility] Urobilinogen, UA 2.0 0.2 - 12 mg/dL [facility], 1928[facility]1983 Urinalysis macro (dipstick) panel (U)on 04-14-2025 Bilirubin, UA Negative Negative - 4(70) +++ mg/dL [facility] Blood, UA Negative Negative - 50 Yunior/mcL [facility] Clarity, UA Clear [facility] Color, UA Yellow [facility] Glucose, UA Negative Negative - 1999(110) ++++ mg/dL [facility] Interpretation and review of laboratory results Normal [facility] Ketones, UA Negative Negative - 160(16) ++++ mg/dL [facility] Leukocytes, UA Negative Negative - 500+++ Trip/mcL [facility] Nitrite, UA Negative Negative - Positive [facility] pH, UA 6.5 5 - 9 [facility] Protein, UA Negative Negative - 1999(20) ++++ mg/dL [facility] Spec Grav, UA 1.005 1 - 1.03 [facility] Urobilinogen, UA 0.2 0.2 - 12 mg/dL [facility], [facility]1983 ALL CBC WITH AUTO DIFFon BASOPHILS ABSOLUTE AUTO 0 [facility] Basophils/100 WBC (Bld) 0.2 % 0.2 - 2.0 % [facility] Eosinophils/100 WBC (Bld) 1.1 % 0.9 - 7.0 % [facility] Erythrocyte distribution width (RBC) [Ratio] 12.8 % 11.0 - 15.0 % [facility] Hematocrit (Bld) [Volume fraction] 30.7 % Low 36.0 - 48.0 % [facility] Hemoglobin (Bld) [Mass/Vol] 10.3 g/dL Low 12.0 - 16.0 g/dL [facility] IMMATURE GRANULOCYTES ABS AUTO 0.04 High [facility] Immature granulocytes/100 WBC (Bld) 0.4 % 0.0 - 0.5 % [facility] Interpretation and review of laboratory results Abnormal [facility] LYMPHOCYTES ABSOLUTE AUTO 1.9 [facility] Lymphocytes/100 WBC (Bld) 17.1 % Low 20.5 - 60.0 % [facility] MCH (RBC) [Entitic mass] 29.7 pg 26.7 - 34.0 pg [facility] MCHC (RBC) [Mass/Vol] 33.6 g/dL 29.9 - 35.2 g/dL [facility] MCV (RBC) [Entitic vol] 88.5 fL 81.0 - 99.0 fL [facility] MONOCYTES ABSOLUTE AUTO 0.7 [facility] Monocytes/100 WBC (Bld) 6.5 % 1.7 - 12.0 % [facility] NEUTROPHILS ABSOLUTE AUTO 8.2 High [facility] Neutrophils/100 WBC (Bld) 74.7 % 43.0 - 75.0 % [facility] Platelet mean volume (Bld) [Entitic vol] 8.7 fL Low 9.5 - 13.5 fL [facility] TBH EO # 0.1 [facility] TBH PLT [address] [facility] RBC 3.47 Low [facility] TB WBC 11 [facility] US OB GROWTHon 04-05-[address] [address] Ultrasound Report Signed Patient: VINNY DOWNEY MR#: [id number] : 2000 Acct:[id number] Age/Sex: 24 / F ADM Date: 04/05/25 Loc: US Attending Dr: Virgil Barton Ordering Physician: Virgil Barton Date of Service: 04/05/25 Procedure(s): US OB growth Accession Number(s): [id number] cc: Virgil Barton; Physician,Non-Staff Khadar [place] [address] Patient Name: VINNY DOWNEY MRN: [facility]:[id number] date: 2000 Sex: F Assigned Patient Location: US Current Patient Location: LAB Accession/Order Number: [id number] Exam Date: 04/05/2025 10:00 Report Date: 04/05/2025 12:08 At the request of: VIRGIL BARTON Procedure: US OB growth Limited obstetrical [...] Peraza M.D. 04/05/2025 12:08 PM Dictation Location: [place] [address] Electronically authenticated by: [id number] Y Date: 04/05/2025 12:08 Dictated By: Daryn Peraza D.O. Signed By: 04/05/25 1211 DD/ 1208 TD/TT: Holistic Nutritionist: [facility] Radiology, Radiologist, MD - 04/05/2025 [place] [address] Ultrasound Report Signed Patient: VINNY DOWNEY MR#: [id number] : 2000 Acct:[id number] Age/Sex: 24 / F ADM Date: 04/05/25 Loc: US Attending Dr: Virgil Barton Ordering Physician: Virgil Barton Date of Service: 04/05/25 Procedure(s): US OB growth Accession Number(s): [id number] cc: Virgil Barton; Physician,Non-Staff Khadar [facility] [place] [id number] Patient Name: VINNY DOWNEY MRN: [id number]:[id number] date: 2000 Sex: F Assigned Patient Location: US Current Patient Location: LAB Accession/Order Number: [id number] Exam Date: 04/05/2025 10:00 Report Date: 04/05/2025 12:08 At the request of: VIRGIL BARTON Procedure: US OB growth Limited obstetrical [...] Peraza M.D. 04/05/2025 12:08 PM Dictation Location: [employer] Electronically authenticated by: [id number] Y Date: 04/05/2025 12:08 Dictated By: Daryn Peraza D.O. Signed By: 04/05/25 1211 DD/ 1208 TD/TT: Holistic Nutritionist: [facility] Radiology Study observation (narrative) [facility] OB GROWTHOrdered By: Kady ologist Radiology on 04-05-2025 [facility] Work Phone: Urinalysis macro (dipstick) panel (U)on 04-03-2025 Bilirubin, UA Negative Negative - 4(70) +++ mg/dL [facility] Blood, UA Negative Negative - 50 Yunior/mcL [facility] Clarity, UA Clear [facility] Color, UA Yellow [facility] Glucose, UA Negative Negative - 2000(110) ++++ mg/dL [facility] Interpretation and review of laboratory results Abnormal [facility] Ketones, UA Negative Negative - 160(16) ++++ mg/dL [facility] Leukocytes, UA Positive Negative - 500+++ Trip/mcL [facility] Nitrite, UA Negative Negative - Positive [facility] pH, UA 6.5 5 - 9 [facility] Protein, UA Negative Negative - 1999(20) ++++ mg/dL [facility] Spec Grav, UA 1.01 1 - 1.03 [facility] Urobilinogen, UA 1.0 0.2 - 12 mg/dL [facility], 1928[facility]1983 Urinalysis macro (dipstick) panel (U)on 03-12-2025 Bilirubin, UA Negative Negative - 4(70) +++ mg/dL [facility] Blood, UA Negative Negative - 50 Yunior/mcL [facility] Clarity, UA Clear [facility] Color, UA Yellow [facility] Glucose, UA Negative Negative - 1999(110) ++++ mg/dL [facility] Interpretation and review of laboratory results Normal [facility] Ketones, UA Negative Negative - 160(16) ++++ mg/dL [facility] Leukocytes, UA Negative Negative - 500+++ Trip/mcL [facility] Nitrite, UA Negative Negative - Positive [facility] pH, UA 6.5 5 - 9 [facility] Protein, UA Negative Negative - 1999(20) ++++ mg/dL [facility] Spec Grav, UA 1.01 1 - 1.03 [facility] Urobilinogen, UA 1.0 0.2 - 12 mg/dL [facility], [facility] Urinalysis macro (dipstick) panel (U)on 02-26-2025 Bilirubin, UA Negative Negative - 4(70) +++ mg/dL [facility] Blood, UA Negative Negative - 50 Yunior/mcL [facility] Clarity, UA Clear [facility] Color, UA Yellow [facility] Glucose, UA Negative Negative - 1999(110) ++++ mg/dL [facility] Interpretation and review of laboratory results Normal [facility] Ketones, UA Negative Negative - 160(16) ++++ mg/dL [facility] Leukocytes, UA Negative Negative - 500+++ Trip/mcL [facility] Nitrite, UA Negative Negative - Positive [facility] pH, UA 6 5 - 9 [facility] Protein, UA Negative Negative - 1999(20) ++++ mg/dL [facility] Spec Grav, UA 1.01 1 - 1.03 [facility] Urobilinogen, UA 0.2 0.2 - 12 mg/dL [facility], [facility] US OB 14+ WEEKS ANATOMY SCAN on [...] UA Negative Negative - 4(70) +++ mg/dL [facility] Blood, UA Negative Negative - 50 Yunior/mcL [facility] Clarity, UA Clear [facility] Color, UA Yellow [facility] Glucose, UA Negative Negative - 1999(110) ++++ mg/dL [facility] Interpretation and review of laboratory results Normal [facility] Ketones, UA Negative Negative - 160(16) ++++ mg/dL [facility] Leukocytes, UA Negative Negative - 500+++ Trip/mcL [facility] Nitrite, UA Negative Negative - Positive [facility] pH, UA 6.5 5 - 9 [facility] Protein, UA Negative Negative - 1999(20) ++++ mg/dL [facility] Spec Grav, UA 1.025 1 - 1.03 [facility] Urobilinogen, UA 1.0 0.2 - 12 mg/dL [facility] RECURRENT VAGINITIS (HTRX)on 01-17-2025 ATOPOBIUM VAGINAE 0 [facility] ATOPOBIUM VAGINAE Not detected [facility] BVAB 2,3 (BACTERIAL VAGINOSIS ASSOCIATED BACTERIA 2, 3); MOBILUNCUS SPP 0 [facility] BVAB 2,3 (BACTERIAL VAGINOSIS ASSOCIATED BACTERIA 2, 3); MOBILUNCUS SPP Not detected [facility] AINSLEY ALBICANS, PARAPSILOSIS, TROPICALIS 0 [facility] AINSLEY ALBICANS, PARAPSILOSIS, TROPICALIS Not detected [facility] AINSLEY GLABRATA 0 [facility] AINSLEY GLABRATA Not detected [facility] AINSLEY KRUSEI 0 [facility] AINSLEY KRUSEI Not detected [facility] CHLAMYDIA TRACHOMATIS 0 [facility] CHLAMYDIA TRACHOMATIS Not detected [facility] GARDNERELLA VAGINALIS 0 [facility] GARDNERELLA VAGINALIS Not detected [facility] MEGASPHAERA (TYPES 1, 2) 0 [facility] MEGASPHAERA (TYPES 1, 2) Not detected [facility] MYCOPLASMA GENITALIUM 0 [facility] MYCOPLASMA GENITALIUM Not detected [facility] NEISSERIA GONORRHOEAE 0 [facility] NEISSERIA GONORRHOEAE Not detected [facility] TRICHOMONAS VAGINALIS 0 [facility] TRICHOMONAS VAGINALIS Not detected [facility] CBCon 01-07-2025 Erythrocyte distribution width (RBC) [Ratio] 12.6 % 11.8 - 14.4 % [facility] Hematocrit (Bld) [Volume fraction] 35.4 % Low 36.3 - 47.1 % [facility] Hemoglobin (Bld) [Mass/Vol] 11.7 g/dL Low 11.9 - 15.1 g/dL [facility] Interpretation and review of laboratory results Abnormal [facility] MCH (RBC) [Entitic mass] 30 pg 25.2 - 33.5 pg [facility] MCHC (RBC) [Mass/Vol] 33.1 g/dL 28.4 - 34.8 g/dL [facility] MCV (RBC) [Entitic vol] 90.8 fL 82.6 - 102.9 fL [facility] Nucleated RBC/100 WBC (Bld) [Ratio] 0 % 0.0 per 100 WBC [facility] Platelet mean volume (Bld) [Entitic vol] 8.7 fL 8.1 - 13.5 fL [facility] Platelets (Bld) [#/Vol] 316 10*3/uL [facility] RBC (Bld) [#/Vol] 3.9 10*6/uL Low 3.95 - 5.1 1 m/uL [facility] WBC other (Bld) [#/Vol] 10.2 [facility] Erythrocyte distribution width (RBC) [Ratio] 12.6 % Normal 11.8-14.4 [facility] Comment on above: Performed By: #### G LUSILVINO, CBC #### [address] [place] [address] Rigging Loft Mechanic: Yelena Greco MD Hematocrit (Bld) [Volume fraction] 35.4 % Low 36.3-47.1 [facility] Comment on above: Performed By: #### G LUSC, CBC #### [address] [place] [place] [address] Rigging Loft Mechanic: Yelena Greco MD Hemoglobin (Bld) [Mass/Vol] 11.7 g/dL Low 11.9-15.1 [facility] Comment on above: Performed By: #### G LUSC, CBC #### [address] [place] [place] [address] Rigging Loft Mechanic: Yelena Greco MD MCH (RBC) [Entitic mass] 30.0 pg Normal 25.2-33.5 [facility] Comment on above: Performed By: #### G LUSC, CBC #### [address] [place] [place] [address] Rigging Loft Mechanic: Yelena Greco MD MCHC (RBC) [Mass/Vol] 33.1 g/dL Normal 28.4-34.8 [facility] Comment on above: Performed By: #### G LUSC, CBC #### [address] [place], [place] [id number] Rigging Loft Mechanic: Yelena Greco MD MCV (RBC) [Entitic vol] 90.8 fL Normal 82.6-102.9 [facility] Comment on above: Performed By: #### G LUSC, CBC #### [address] [place], [place] [id number] Rigging Loft Mechanic: Yelena Greco MD NRBC Automated 0.0 per 100 WBC Normal 0.0 [facility] Comment on above: Performed By: #### G JANAE, CBC #### [address] [place], [place] [id number] Rigging Loft Mechanic: Yelena Greco MD Platelet mean volume (Bld) [Entitic vol] 8.7 fL Normal 8.1-13.5 [facility] Comment on above: Performed By: #### G JANAE, CBC #### [address] [place], [place] [id number] Rigging Loft Mechanic: Yelena Greco MD Platelets (Bld) [#/Vol] 316 10*3/uL Normal 138-453 [facility] Comment on above: Performed By: #### G JANAE, CBC #### [address] [place], [place] [id number] Rigging Loft Mechanic: Yelena Greco MD RBC (Bld) [#/Vol] 3.90 10*6/uL Low 3.95-5.11 [facility] Comment on above: Performed By: #### G JANAE, CBC #### [address] [place], [place] [id number] Rigging Loft Mechanic: Yelena Greco MD WBC (Bld) [#/Vol] 10.2 10*3/uL Normal 3.5-11.3 [facility] Comment on above: Performed By: #### G JANAE, CBC #### [address] [place] [place] [address] Rigging Loft Mechanic: Yelena Greco MD Glucose Challenge Gestationa harlan 01-07-2025 GLU ADMN Glucola [facility] Glucose 1 Hr post 50 g glucose PO [Mass/Vol] 184 mg/dL High 70 - 135 mg/dL [facility] Interpretation and review of laboratory results Abnormal [facility] Glucose Toya Scr 50gon 2024 Glucose [Mass/Vol] 184 mg/dL High 70-135 [facility] Comment on above: Performed By: #### G LUSC, CBC #### [facility] [address] [place] [place] [address] Rigging Loft Mechanic: Yelena Greco MD Glu Administered via Glucola Normal [facility] Comment on above: Performed By: #### G LUSC, CBC #### [facility] [address] [place] [id number] Rigging Loft Mechanic: Yelena Greco MD US OB LESS THAN [...] by: Noah Rivero MD 12/23/24 Final result [facility] Radiology, Radiologist, - 12/23/2024 EXAMINATION: FIRST TRIMESTER [...] by: Noah Rivero MD 12/23/24 Final result [facility] Radiology Study observation (narrative) [facility] US OB LESS THAN 14 WEEKS SIN GLE OR FIRST GESTATIONOrdered By: Radiologist Radiology on 12-23-2024 [facility] Work Phone: US OB LESS [...] Noah Rivero MD 12/23/24 Final result Normal [facility] Urinalysis macro (dipstick) panel (U)on 12-18-2024 Bilirubin, UA Negative Negative - 4(70) +++ mg/dL [facility] Blood, UA Positive Negative - 50 Yunior/mcL [facility] Clarity, UA Clear [facility] Color, UA Yellow [facility] Glucose, UA Negative Negative - 1999(110) ++++ mg/dL [facility] Interpretation and review of laboratory results Abnormal [facility] Ketones, UA Negative Negative - 160(16) ++++ mg/dL [facility] Leukocytes, UA Negative Negative - 500+++ Trip/mcL [facility] Nitrite, UA Negative Negative - Positive [facility] pH, UA 7 5 - 9 [facility] Protein, UA Negative Negative - 1999(20) ++++ mg/dL [facility] Spec Grav, UA 1.01 1 - 1.03 [facility] Urobilinogen, UA 1.0 0.2 - 12 mg/dL [facility]1983 HCG ( test) Ql (U)o n 11-14-2024 Interpretation and review of laboratory results Abnormal [facility] Preg Test, Ur Positive Negative [facility]1983 US OB TRANSVAGINALon 025 US OB TRANSVAGINAL [...] II, MD, PHD at 15-Nov-2024 09:44:32 AM [facility] Normal Not Available Comment on above: Order Comment: US OB TRANSVAGINAL No LMP recorded. Urinalysis macro (dipstick) panel (U)on 11-14-2024 Bilirubin, UA Negative Negative - 4(70) +++ mg/dL [facility] Blood, UA Negative Negative - 50 Yunior/mcL [facility] Clarity, UA Clear [facility] Color, UA Yellow [facility] Glucose, UA Negative Negative - 1999(110) ++++ mg/dL [facility] Interpretation and review of laboratory results Normal [facility] Ketones, UA Negative Negative - 160(16) ++++ mg/dL [facility] Leukocytes, UA Negative Negative - 500+++ Trip/mcL [facility] Nitrite, UA Negative Negative - Positive [facility] pH, UA 6.5 5 - 9 [facility] Protein, UA Negative Negative - 1999(20) ++++ mg/dL [facility] Spec Grav, UA 1.005 1 - 1.03 [facility] Urobilinogen, UA 0.2 0.2 - 12 mg/dL Formerly [facility], 1928–1983 IGP,APTIMA HPV,AGE GDLNon AGE GDLN ACOG TESTING Note . [facility] Comment on above: TESTS RESULT FLAG U NITS REF RANGE LAB Clinician Provided Cytology Information Source.............Cervix;Endocervix No. of containers..01 ThinPrep Vial Age Algo ACOG Addie... FLAG LEGEND: L-Low Normal,H-High Normal,LL-Alert Low,HH-Alert High <-Panic Low,>-Panic High,A-Abnormal,AA-Critical Abnormal Performed at: 01 =G [facility] [place] [address] Anastasiya Moses MD, IGP, RFX APTIMA HPV ASCU Note . [facility] Comment on above: TESTS RESULT FLAG UN ITS REF RANGE LAB DIAGNOSIS: 02 NEGATIVE FOR INTRAEPITHELIAL LESION OR MALIGNANCY. Specimen adequacy: 02 Satisfactory for evaluation. Endocervical and/or squamous metaplastic cells (endocervical component) are present. Performed by: 02 Maico Galaviz, Supervisor Hand Workers ([facility]) . 02 Note: Note 02 [...] <-Panic Low,>-Panic High,A-Abnormal,AA-Critical Abnormal Performed at: [address] [place] [address] Anastasiya Moses MD, Performed at: = - [facility], [place] [id number] Rigging [employer] Mechanic: Anastasiya Moses MD, Phone: [phone] Performed at: [place] [address] [place] [id number] [employer] Mechanic: Anastasiya Moses MD, Phone: [phone] BRUSH-SPATULA CERVIX ENDOCERVIX [facility] Comp Metabolic Profon 2023 Albumin [Mass/Vol] 4.6 g/dL Normal 3.5-5.2 [facility] Comment on above: Performed By: #### C P #### [facility] [address] [place], [place] [id number] [employer]ging [employer] Mechanic: Yelena Greco MD Albumin/Glob Ratio 1.5 Normal 1.0-2.5 [facility] Comment on above: Performed By: #### C P #### [facility] [address] [place], [place] [id number] [employer]ging [employer] Mechanic: Yelena Greco MD Alkaline Phos 71 U/L Normal 35-104 [facility] Comment on above: Performed By: #### C P #### [facility] [address] [place], [place] [phone] [employer] Mechanic: Yelena Greco MD ALT [Catalytic activity/Vol] 41 U/L High 10-35 [facility] Comment on above: Performed By: #### C P #### [facility] [address] [place] [address] [employer] Mechanic: Yelena Greco MD Anion gap [Moles/Vol] 10 mmol/L Normal 9-16 [facility] Comment on above: Performed By: #### C P #### [facility] [address] [place], [place] [id number] [employer]ging [employer] Mechanic: Yelena Greco MD AST [Catalytic activity/Vol] 34 U/L Normal 10-35 [facility] Comment on above: Performed By: #### C P #### [facility] [address] [place], [place] [phone] [employer] Mechanic: Yelena Greco MD Bilirubin [Mass/Vol] 0.4 mg/dL Normal 0.00-1.20 [facility] Comment on above: Performed By: #### C P #### [facility] [address] [place], [place] [address] [employer]ging [employer] Mechanic: Yelena Greco MD BUN/CRE Ratio 22 High 9-20 [facility] Comment on above: Performed By: #### C P #### [facility] [address] [place], [place] [id number] [employer] Mechanic: Yelena Greco MD Calcium [Mass/Vol] 9.4 mg/dL Normal 8.6-10.4 [facility] Comment on above: Performed By: #### C P #### [facility] [address] [place], [place] [phone] [employer]ging [employer] Mechanic: Yelena Greco MD Chloride [Moles/Vol] 103 mmol/L Normal 98-107 [facility] Comment on above: Performed By: #### C P #### [facility] [address] [place], [place] [address] [employer]ging [employer] Mechanic: Yelena Greco MD CO2 [Moles/Vol] 25 mmol/L Normal 20-31 [facility] Comment on above: Performed By: #### C P #### [facility] [address] [place] [phone] [employer]ging [employer] Mechanic: Yelena Greco MD Creatinine [Mass/Vol] 0.6 mg/dL Normal 0.50-0.90 [facility] Comment on above: Performed By: #### C P #### [facility] [address] [place], [place] [phone] [employer]ging [employer] Mechanic: Yelena Greco MD GFR/1.73 sq M.predicted among non-blacks MDRD (S/P/Bld) [Vol rate/Area] mL/min/{1.73_m2} Normal >60 [facility] Comment on above: Result Comment: These [...] secretion. Performed By: #### C P #### [facility] [address] [place] [address] [employer] Mechanic: Yelena Greco MD Glucose [Mass/Vol] 83 mg/dL Normal 74-99 [facility] Comment on above: Performed By: #### C P #### [facility] [address] [place], [place] [phone] [employer] Mechanic: Yelena Greco MD Potassium [Moles/Vol] 4.6 mmol/L Normal 3.7-5.3 [facility] Comment on above: Performed By: #### C P #### [facility] [address] [place], [place] [phone] [employer]ging [employer] Mechanic: Yelena Greco MD Protein [Mass/Vol] 7.8 g/dL Normal 6.6-8.7 [facility] Comment on above: Performed By: #### C P #### [facility] [address] [place] [address] Dr[address] [place], [place] [phone] [employer] Mechanic: Yelena Greco MD Sodium [Moles/Vol] 138 mmol/L Normal 136-145 [facility] Comment on above: Performed By: #### C P #### [facility] [address] [place], [place] [phone] [employer]ging [employer] Mechanic: Yelena Greco MD Urea nitrogen [Mass/Vol] 13 mg/dL Normal 6-20 [facility] Comment on above: Performed By: #### C P #### [facility] [address] [place] [address] [employer]ging [employer] Mechanic: Yelena Greco MD [facility] Metabolic Radha claros 05-20-2024 Albumin [Mass/Vol] 4.6 g/dL 3.5 - 5.2 g/dL [facility] Albumin/Globulin [Mass ratio] 1.5 {ratio} 1.0 - 2.5 [facility] ALP [Catalytic activity/Vol] 71 U/L 35 - 104 U/L [facility] ALT [Catalytic activity/Vol] 41 U/L High 10 - 35 U/L [facility] Anion gap [Moles/Vol] 10 mmol/L 9 - 16 mmol/L [facility] AST [Catalytic activity/Vol] 34 U/L 10 - 35 U/L [facility] Bilirubin [Mass/Vol] 0.4 mg/dL 0.00 - 1.20 mg/dL [facility] Calcium [Mass/Vol] 9.4 mg/dL 8.6 - 10. 4 mg/dL [facility] Chloride [Moles/Vol] 103 mmol/L 98 - 107 mmol/L [facility] CO2 [Moles/Vol] 25 mmol/L 20 - 31 mmol/L [facility] Creatinine [Mass/Vol] 0.6 mg/dL 0.50 - 0.90 mg/dL [facility] Est, Cynthia Buttt Rate - PINF [facility] Comment on above: These results are [...] [Mass/Vol] 83 mg/dL 74 - 99 mg/dL [facility] Interpretation and review of laboratory results Abnormal [facility] Potassium [Moles/Vol] 4.6 mmol/L 3.7 - 5.3 mmol/L [facility] Protein [Mass/Vol] 7.8 g/dL 6.6 - 8.7 g/dL [facility] Sodium [Moles/Vol] 138 mmol/L 136 - 145 mmol/L [facility] Urea nitrogen [Mass/Vol] 13 mg/dL 6 - 20 mg/dL [facility] Urea nitrogen/Creatinine [Mass ratio] 22 mg/mg High 9 - 20 [facility] Lipid Panelon 05-20-2024 Cholesterol [Mass/Vol] 152 mg/dL 0 - 199 mg/dL [facility] Comment on above: Cholesterol Guidelines: <200 Desirable 200-240 Borderline >240 Undesirable Cholesterol in HDL [Mass/Vol] 33 mg/dL Low 40 - PINF mg/dL [facility] Comment on above: HDL Guidelines: <40 Undesirable 40-59 Borderline >59 Desirable Cholesterol in LDL [Mass/Vol] 88 mg/dL 0 - 100 mg/dL [facility] Comment on above: LDL Guidelines: <100 Desirable 100-129 Near to/above Desirable 130-159 Borderline >159 Undesirable Direct (measured) LDL and calculated LDL are not interchangeable tests. Cholesterol in VLDL [Mass/Vol] 31 mg/dL [facility] Cholesterol.total/Ch olesterol in HDL [Mass ratio] 5.0 {ratio} [facility] Interpretation and review of laboratory results Abnormal [facility] Triglyceride [Mass/Vol] 156 mg/dL High NINF - 150 mg/dL [facility] Comment on above: Triglyceride Guidelines: <150 Desirable 150-199 Borderline 200-499 High >499 Very high Based on AHA Guidelines for fasting triglyceride, April 2012. [facility] Lipid Profileon 05-20-2024 Cholesterol [Mass/Vol] 152 mg/dL Normal 0-199 [facility] Comment on above: Result Comment: Cholesterol Guidelines: <200 Desirable 200-240 Borderline >240 Undesirable Performed By: #### L IPR #### [facility] [address] [place], [place] [id number] Rigging [employer] Mechanic: Osvaldo Santamaria MD Cholesterol in HDL [Mass/Vol] 33 mg/dL Low >40 [facility] Comment on above: Result Comment: HDL Guidelines: <40 Undesirable 40-59 Borderline >59 Desirable Performed By: #### L IPR #### [facility] [address] [place], [place] [id number] Rigging [employer]ft Mechanic: Osvaldo Santamaria MD Cholesterol in LDL [Mass/Vol] 88 mg/dL Normal 0-100 [facility] Comment on above: Result Comment: LDL Guidelines: <100 Desirable 100-129 Near to/above Desirable 130-159 Borderline >159 Undesirable Direct (measured) LDL and calculated LDL are not interchangeable tests. Performed By: #### L IPR #### [facility] [place] [address] Rigging Loft Mechanic: Osvaldo Santamaria MD Cholesterol in VLDL [Mass/Vol] 31 mg/dL Normal [facility] Comment on above: Performed By: #### L IPR #### [facility] [place] [address] Rigging Loft Mechanic: Osvaldo Santamaria MD Cholesterol.total/Ch olesterol in HDL [Mass ratio] 5.0 {ratio} Normal [facility] Comment on above: Performed By: #### L IPR #### [facility] [address] [place] [address] Rigging [employer]ft Mechanic: Osvaldo Santamaria MD Triglyceride [Mass/Vol] 156 mg/dL High <150 [facility] Comment on above: Result Comment: Triglyceride Guidelines: <150 Desirable 150-199 Borderline 200-499 High >499 Very high Based on AHA Guidelines for fasting triglyceride, April 2012. Performed By: #### L IPR #### [facility] [place] [address] Rigging Loft Mechanic: Osvaldo Santamaria MD US GALLBLADDER RUQon 024 US GALLBLADDER RUQ EXAMINATION: RIGHT UPPER QUADRANT ULTRASOUND 03/06/2024 9:58 am COMPARISON: None. HISTORY: ORDERING SYSTEM PROVIDED HISTORY: Elevated liver enzymes TECHNOLOGIST PROVIDED HISTORY: This procedure can be scheduled via Room 8 [employer]. elevated liver enzymes, fam hx gallbladder disease. [...] Hernandez Stewart MD 03/06/24 Final result Normal [facility] CBCon 02-16-2024 Erythrocyte distribution width (RBC) [Ratio] 12.4 % Normal 11.8-14.4 [facility] Comment on above: Performed By: #### F EBC #### [address] [address] Rigging [employer]ft Mechanic: Osvaldo Santamaria MD #### CBC, CP #### [address] [place] [address] Rigging [employer]ft Mechanic: Yelena Greco MD Hematocrit (Bld) [Volume fraction] 40.2 % Normal 36.3-47.1 [facility] Comment on above: Performed By: #### F EBC #### [address] [address] Rigging [employer]ft Mechanic: Osvaldo Santamraia MD #### CBC, CP #### [address] [place] [address] Rigging Loft Mechanic: Yelena Greco MD Hemoglobin (Bld) [Mass/Vol] 13.5 g/dL Normal 11.9-15.1 [facility] Comment on above: Performed By: #### F EBC #### [address] [address] [employer]ft Mechanic: Osvaldo Santamaria MD #### CBC, CP #### [address] [place] [address] Rigging Loft Mechanic: Yelena Greco MD MCH (RBC) [Entitic mass] 29.8 pg Normal 25.2-33.5 [facility] Comment on above: Performed By: #### F EBC #### [address] [address] Rigging [employer]ft Mechanic: Osvaldo Santamaria MD #### CBC, CP #### [address] [place], [place] [phone] Rigging [employer]ft Mechanic: Yelena Greco MD MCHC (RBC) [Mass/Vol] 33.6 g/dL Normal 28.4-34.8 [facility] Comment on above: Performed By: #### F EBC #### [address] [address] [employer]ging [employer]ft Mechanic: Osvaldo Santamaria MD #### CBC, CP #### [address] [place] [address] Rigging Loft Mechanic: Yelena Greco MD MCV (RBC) [Entitic vol] 88.7 fL Normal 82.6-102.9 [facility] Comment on above: Performed By: #### F EBC #### [address] [address] Rigging [employer]ft Mechanic: Osvaldo Santamaria MD #### CBC, CP #### [address] [place] [address] Rigging Loft Mechanic: Yelena Greco MD NRBC Automated 0.0 per 100 WBC Normal 0.0 [facility] Comment on above: Performed By: #### F EBC #### [address] [address] [employer] Mechanic: Osvaldo Santamaria MD #### CBC, CP #### [address] [place] [address] Rigging Loft Mechanic: Yelena Greco MD Platelet mean volume (Bld) [Entitic vol] 8.5 fL Normal 8.1-13.5 [facility] Comment on above: Performed By: #### F EBC #### [address] [id number] [employer] Mechanic: Osvaldo Santamaria MD #### CBC, CP #### [address] [place] [address] Rigging [employer]ft Mechanic: Yelena Greco MD Platelets (Bld) [#/Vol] 309 10*3/uL Normal 138-453 [facility] Comment on above: Performed By: #### F EBC #### [address] [address] [employer] Mechanic: Osvaldo Santamaria MD #### CBC, CP #### [address] [place] [address] [employer]ging [employer]ft Mechanic: Yelena Greco MD RBC (Bld) [#/Vol] 4.53 10*6/uL Normal 3.95-5.11 [facility] Comment on above: Performed By: #### F EBC #### [address] [address] [employer] Mechanic: Osvaldo Santamaria MD #### CBC, CP #### [address] [place] [address] [employer]ging [employer]ft Mechanic: Yelena Greco MD WBC (Bld) [#/Vol] 6.5 10*3/uL Normal 3.5-11.3 [facility] Comment on above: Performed By: #### F EBC #### [address] [address] [employer] Mechanic: Osvaldo Santamaria MD #### CBC, CP #### [address] [place] [address] Rigging [employer]ft Mechanic: Yelena Greco MD Comp Metabolic Profon 2023 Albumin [Mass/Vol] 4.5 g/dL Normal 3.5-5.2 [facility] Comment on above: Performed By: #### F EBC #### [address] [address] [employer] Mechanic: Osvaldo Santamaria MD #### CBC, CP #### [facility] [address] [place], [place] [phone] Rigging Loft Mechanic: Yelena Greco MD Albumin/Glob Ratio 1.5 Normal 1.0-2.5 [facility] Comment on above: Performed By: #### F EBC #### [address] [address] [employer]ging [employer]ft Mechanic: Osvaldo Santamaria MD #### CBC, CP #### [facility] [address] [place] [address] Rigging Loft Mechanic: Yelena Greco MD Alkaline Phos 74 U/L Normal 35-104 [facility] Comment on above: Performed By: #### F EBC #### [address] [address] [employer]ging [employer]ft Mechanic: Osvaldo Santamaria MD #### CBC, CP #### [facility] [address] [place] [address] [place], [place] [phone] [employer]ging [employer]ft Mechanic: Yelena Greco MD ALT [Catalytic activity/Vol] 61 U/L High 5-33 [facility] Comment on above: Performed By: #### F EBC #### [address] [address] [employer]ging [employer] Mechanic: Osvaldo Santamaria MD #### CBC, CP #### [facility] [address] [place], [place] [address] Rigging [employer]ft Mechanic: Yelena Greco MD Anion gap [Moles/Vol] 8 mmol/L Low 9-17 [facility] Comment on above: Performed By: #### F EBC #### [address] [address] [employer]ging [employer]ft Mechanic: Osvaldo Santamaria MD #### CBC, CP #### [facility] [address] [place], [place] [phone] Rigging Loft Mechanic: Yelena Greco MD AST [Catalytic activity/Vol] 43 U/L High <32 [facility] Comment on above: Performed By: #### F EBC #### [facility] [address] [place] [address] Rigging [employer]ft Mechanic: Osvaldo Santamaria MD #### CBC, CP #### [facility] [address] [place] [address] [place] [place], [place] [phone] [employer]ging [employer]ft Mechanic: Yelena Greco MD Bilirubin [Mass/Vol] 0.2 mg/dL Low 0.3-1.2 [facility] Comment on above: Performed By: #### F EBC #### [address] [address] [employer]ging [employer]ft Mechanic: Osvaldo Santamaria MD #### CBC, CP #### [address] [place], [place] [address]383 Rigging Loft Mechanic: Yelena Greco MD BUN/CRE Ratio 20 Normal 9-20 [facility] Comment on above: Performed By: #### F EBC #### [address] [address] Rigging [employer]ft Mechanic: Osvaldo Santamaria MD #### CBC, CP #### [address] [place], [place] 577[address]83 Rigging [employer]ft Mechanic: Yelena Greco MD Calcium [Mass/Vol] 9.4 mg/dL Normal 8.6-10.4 [facility] Comment on above: Performed By: #### F EBC #### [address] [address] [employer]ging [employer]ft Mechanic: Osvaldo Santamaria MD #### CBC, CP #### [address] [place], [place] [address]39[address]83 Rigging [employer]ft Mechanic: Yelena Greco MD Chloride [Moles/Vol] 100 mmol/L Normal 98-107 [facility] Comment on above: Performed By: #### F EBC #### [facility] [address] [place], [place] 356[address] Rigging [employer]ft Mechanic: Osvaldo Santamaria MD #### CBC, CP #### [facility] [address] [place] [address] Rigging Loft Mechanic: Yelena Greco MD CO2 [Moles/Vol] 28 mmol/L Normal 20-31 [facility] Comment on above: Performed By: #### F EBC #### [facility] [address] [place] [address] Rigging [employer]ft Mechanic: Osvaldo Santamaria MD #### CBC, CP #### [facility] [address] [place] [address] Rigging Loft Mechanic: Yelena Greco MD Creatinine [Mass/Vol] 0.6 mg/dL Normal 0.5-0.9 [facility] Comment on above: Performed By: #### F EBC #### [facility] [address] [place] [address] Rigging [employer]ft Mechanic: Osvaldo Santamaria MD #### CBC, CP #### [facility] [address] [place] [address] Rigging Loft Mechanic: Yelena Greco MD GFR/1.73 sq M.predicted among non-blacks MDRD (S/P/Bld) [Vol rate/Area] mL/min/{1.73_m2} Normal >60 [facility] Comment on above: Result Comment: These [...] secretion. Performed By: #### F EBC #### [address] [address] [employer]ging [employer] Mechanic: Osvaldo Santamaria MD #### CBC, CP #### [address] [place], [place] 047[address]83 [employer]ging [employer]ft Mechanic: Yelena Greco MD Glucose [Mass/Vol] 91 mg/dL Normal 70-99 [facility] Comment on above: Performed By: #### F EBC #### [address] [address] [employer]ging [employer]ft Mechanic: Osvaldo Santamaria MD #### CBC, CP #### [address] [place], [place] [address]83 [employer]ging [employer]ft Mechanic: Yelena Greco MD Potassium [Moles/Vol] 4.2 mmol/L Normal 3.7-5.3 [facility] Comment on above: Performed By: #### F EBC #### [address] [address] [employer]ging [employer]ft Mechanic: Osvaldo Santamaria MD #### CBC, CP #### [address] [place], [place] [address]257[address] Rigging [employer]ft Mechanic: Yelena Greco MD Protein [Mass/Vol] 7.6 g/dL Normal 6.4-8.3 [facility] Comment on above: Performed By: #### F EBC #### [address] [address] [employer]ging [employer]ft Mechanic: Osvaldo Santamaria MD #### CBC, CP #### [address] [place], [place] [id number] Rigging Loft Mechanic: Yelena Greco MD Sodium [Moles/Vol] 136 mmol/L Normal 135-144 [facility] Comment on above: Performed By: #### F EBC #### [address] [address] [employer]ft Mechanic: Osvaldo Santamaria MD #### CBC, CP #### [facility] [address] [place] [address] Rigging Loft Mechanic: Yelena Greco MD Urea nitrogen [Mass/Vol] 12 mg/dL Normal 6-20 [facility] Comment on above: Performed By: #### F EBC #### [address] [address] [employer]ging [employer]ft Mechanic: Osvaldo Santamaria MD #### CBC, CP #### [facility] [address] [place] [address] Rigging Loft Mechanic: Yelena Greco MD Iron Binding Cap.on 02-16-20 24 % Fe Saturation 25 % Normal 20-55 [facility] Comment on above: Performed By: #### F EBC #### [address] [address] Rigging [employer]ft Mechanic: Osvaldo Santamaria MD #### CBC, CP #### [address] [place] [address] Rigging [employer]ft Mechanic: Yelena Greco MD Iron [Mass/Vol] 92 ug/dL Normal 37-145 [facility] Comment on above: Performed By: #### F EBC #### [address] [address] [employer]ging [employer]ft Mechanic: Osvaldo Santamaria MD #### CBC, CP #### [facility] [address] [place], [place] [phone] Rigging [employer]ft Mechanic: Yelena Greco MD Total Fe Binding Cap 373 ug/dL Normal 250-450 [facility] Comment on above: Performed By: #### F EBC #### [address] [address] [employer]ging [employer]ft Mechanic: Osvaldo Santamaria MD #### CBC, CP #### [facility] [address] [place], [place] [phone] Rigging [employer]ft Mechanic: Yelena Greco MD Unbound Fe Bind Cap 281 ug/dL Normal 112-347 [facility] Comment on above: Performed By: #### F EBC #### [facility] [address] [place] [address] Rigging [employer]ft Mechanic: Osvaldo Santamaria MD #### CBC, CP #### [facility] [address] [place], [place] 576[address]83 [employer]ging [employer] Mechanic: Yelena Greco MD Lipid Profileon 02-16-2024 Cholesterol [Mass/Vol] 245 mg/dL High 0-199 [facility] Comment on above: Result Comment: Cholesterol Guidelines: <200 Desirable 200-240 Borderline >240 Undesirable Performed By: #### L IPR #### [address] [address] [employer] Mechanic: Osvaldo Santamaria MD Cholesterol in HDL [Mass/Vol] 34 mg/dL Low >40 [facility] Comment on above: Result Comment: HDL Guidelines: <40 Undesirable 40-59 Borderline >59 Desirable Performed By: #### L IPR #### [address] [address] [employer]ging [employer]ft Mechanic: Osvaldo Santamaria MD Cholesterol in LDL [Mass/Vol] 159 mg/dL High 0-100 [facility] Comment on above: Result Comment: LDL Guidelines: <100 Desirable 100-129 Near to/above Desirable 130-159 Borderline >159 Undesirable Direct (measured) LDL and calculated LDL are not interchangeable tests. Performed By: #### L IPR #### [facility] [address] [place] [address] Rigging [employer]ft Mechanic: Osvaldo Santamaria MD Cholesterol in VLDL [Mass/Vol] 52 mg/dL Normal [facility] Comment on above: Performed By: #### L IPR #### [place] [address] [place] [address] [employer]ging [employer]ft Mechanic: Osvaldo Santamaria MD Cholesterol.total/Ch olesterol in HDL [Mass ratio] 7.0 {ratio} Normal [facility] Comment on above: Performed By: #### L IPR #### [facility] [address] [place], [place] [phone] [employer]ging [employer]ft Mechanic: Osvaldo Santamaria MD Triglyceride [Mass/Vol] 259 mg/dL High <150 [facility] Comment on above: Result Comment: Triglyceride Guidelines: <150 Desirable 150-199 Borderline 200-499 High >499 Very high Based on AHA Guidelines for fasting triglyceride, April 2012. Performed By: #### L IPR #### [facility] [address] [place] [address] [employer]ging [employer]ft Mechanic: Osvaldo Santamaria MD Office Visiton 07-11-2023 Follow-up visit [id number] Vinny Downey 2000 Provider Department Center 07/11/2023 241-RAJENDRA SHEFFIELD SAMSON Mccormick Family History Problem Relation Age of Onset Anemia Mother Supraventricular tachycardia Father Hyperlipidemia Father Diabetes Sister Family Status - Relation Status Age at Mother Father Sister Level of Service:26280 [place] OFFICE/OUTPATIENT NEW MODERATE MDM 45 MINUTES Normal [facility] Office Visiton 03-20-2023 Follow-up visit [id number] Vinny Downey 2000 Provider [facility] 03/20/2023 ISRAEL ULLOA SAMSON Mccormick Family History Problem Relation Age of Onset Anemia Mother Supraventricular tachycardia Father Hyperlipidemia Father Diabetes Sister Family Status - Relation Status Age at Mother Father Sister Level of Service:30330 RI OFFICE/OUTPATIENT NEW LOW MDM 30-44 MINUTES Normal [facility] US PREG BIOPHY W NON [...] YELENA CARLOS Date: 2022-12-20 07:03 Normal [facility] US PREG PLACENTAon US PREG PLACENTA [...] ALFREDO GRANT Date: 2022-12-12 14:56 Normal [facility] US PREG BIOPHY W NON STRESSo [...] LUIS ALFREDO GRANT Date: 2022-12-11 04:08 Normal [facility] US PREG GROWTHon 12-11-2022 US PREG [...] ALFREDO GRANT Date: 2022-12-11 04:06 Normal [facility] GTT 3 HR PREGon 10-22-2022 Glucose [Mass/Vol] 98 mg/dL Normal 74-106 [facility] Comment on above: Performed By: #### G TT3P #### [facility] [address] [place] [address] Dr. Emilee Springer Glucose [Mass/Vol] 170 mg/dL Normal [facility] Comment on above: Performed By: #### G TT3P #### [facility] [address] [place] [address] Dr. Emilee Springer Glucose [Mass/Vol] 201 mg/dL Normal [facility] Comment on above: Performed By: #### G TT3P #### [facility] [address] [place] [address] Dr. Emilee Springer Glucose [Mass/Vol] 115 mg/dL Normal [facility] Comment on above: Performed By: #### G TT3P #### [facility] [address] [place] [address] Dr. Emilee Springer US PREG INCOMPLETE ANATOMYon [...] YELENA CARLOS Date: 2022-10-16 08:44 Normal [facility] CBC AUTO DIFFon 10-15-2022 BASO # 0.0 103/ul Normal 0.0-0.1 [facility] Comment on above: Performed By: #### C BC #### [facility] [address] [place] [address] Dr. Emilee Springer Basophils/100 WBC (Bld) 0.2 % Normal 0.2-2.0 [facility] Comment on above: Performed By: #### C BC #### [facility] [address] [place] [address] Dr. Emilee Springer EO # 0.1 103/ul Normal 0.0-0.7 [facility] Comment on above: Performed By: #### C BC #### [facility] [address] [place] [address] Dr. Emilee Springer Eosinophils/100 WBC (Bld) 0.8 % Critically low 0.9-7.0 [facility] Comment on above: Performed By: #### C BC #### [facility] [address] [place] [address] Dr. Emilee Springer Erythrocyte distribution width (RBC) [Ratio] 12.5 % Normal 11.0-15.0 [facility] Comment on above: Performed By: #### C BC #### [facility] [address] [place] [address] Dr. Emilee Springer Hematocrit (Bld) [Volume fraction] 29.8 % Critically low 36.0-48.0 [facility] Comment on above: Performed By: #### C BC #### [facility] [address] [place] [address] Dr. Emilee Springer Hemoglobin (Bld) [Mass/Vol] 10.0 g/dL Critically low 12.0-16.0 [facility] Comment on above: Performed By: #### C BC #### [facility] [address] [place] [address] Dr. Emilee Springer IG # 0.05 10e3/ul Critically high 0.00-0.03 [facility] Comment on above: Performed By: #### C BC #### [facility] [address] [place] [address] Dr. Emilee Springer IG % 0.5 % Normal 0.0-0.5 [facility] Comment on above: Performed By: #### C BC #### [facility] [address] [place] [address] Dr. Emilee Springer LYMPH # 1.6 103/ul Normal 1.2-3.8 [facility] Comment on above: Performed By: #### C BC #### [facility] [address] [place] [address] Dr. Emilee Springer Lymphocytes/100 WBC (Bld) 15.3 % Critically low 20.5-60.0 [facility] Comment on above: Performed By: #### C BC #### [facility] [address] [place] [address] Dr. Emilee Springer MANUAL DIFF REQ NO Normal [facility] Comment on above: Performed By: #### C BC #### [facility] [address] [place] [address] Dr. Emilee Springer MCH (RBC) [Entitic mass] 30.2 pg Normal 26.7-34.0 [facility] Comment on above: Performed By: #### C BC #### [facility] [address] [place] [address] Dr. Emilee Springer MCHC (RBC) [Mass/Vol] 33.6 g/dL Normal 29.9-35.2 [facility] Comment on above: Performed By: #### C BC #### [facility] [address] [place] [address] Dr. Emilee Springer MCV (RBC) [Entitic vol] 90.0 fL Normal 81.0-99.0 [facility] Comment on above: Performed By: #### C BC #### [facility] [address] [place] [address] Dr. Emilee Springer MONO # 0.6 103/ul Normal 0.3-0.8 [facility] Comment on above: Performed By: #### C BC #### [facility] [address] [place] [address] Dr. Emilee Springer Monocytes/100 WBC (Bld) 5.8 % Normal 1.7-12.0 [facility] Comment on above: Performed By: #### C BC #### [facility] [address] [address] [address] Emilee Springer NEUT # 8.2 103/ul Critically high 1.4-6.5 [facility] Comment on above: Performed By: #### C BC #### [facility] [address] [place] [address] Dr. Emilee Springer Neutrophils/100 WBC (Bld) 77.4 % Critically high 43.0-75.0 [facility] Comment on above: Performed By: #### C BC #### [facility] [address] [place] [address] Dr. Emilee Springer Platelet mean volume (Bld) [Entitic vol] 8.5 fL Critically low 9.5-13.5 [facility] Comment on above: Performed By: #### C BC #### [facility] [address] [place] [address] Dr. Emilee Springer PLT 347 103/ul Normal 150-450 [facility] Comment on above: Performed By: #### C BC #### [facility] [address] [place] [address] Dr. Emilee Springer RBC 3.31 106/ul Critically low 4.20-5.40 [facility] Comment on above: Performed By: #### C BC #### [facility] [address] [place] [address] Dr. Emilee Springer WBC 10.6 103/ul Normal 4.0-11.0 [facility] Comment on above: Performed By: #### C BC #### [facility] [address] [place] [address] Dr. Emilee Springer GLUCOSE - 1HRon 10-15-2022 Glucose [Mass/Vol] 176 mg/dL Critically high 74-106 [facility] Comment on above: Performed By: #### G LU1HR #### [facility] [address] [place] [address] Dr. Emilee Springer CHLAMYDIA/GONOCOCCUS ANISA (SW AB/URINE/PAPon 09-15-2022 Chlamydia trachomatis, ANISA Negative Normal Negative [facility] Comment on above: Performed By: #### C BC #### [facility] [address] [address] [address] Emilee Springer Neisseria gonorrhoeae, ANISA Negative Normal Negative [facility] Comment on above: Performed By: #### C BC #### [facility] [address] [address] [address] Emilee Springer VAGINITIS/VAGINOSIS DNA PROB Leonid 09-14-2022 Ainsley species Negative Normal Negative [facility] Comment on above: Performed By: #### C BC #### [facility] [address] [address] [address] Emilee Springer Gardnerella vaginalis Negative Normal Negative [facility] Comment on above: Performed By: #### C BC #### [facility] [address] [address] [address] Emilee Springer Trichomonas vaginalis Negative Normal Negative [facility] Comment on above: Performed By: #### C BC #### [facility] [address] [address] [address] Emilee Springer US PREG ANATOMY SINGLEon [...] ALFREDO GRANT Date: 2022-09-13 16:57 Normal [facility] AFP MATERNAL FOR SPINA BIFID Aon 08-31-2022 AFP MoM 0.42 Normal [facility] Comment on above: Performed By: #### A FPMAT #### [facility] [address] [address] [address] Emilee Springer AFP Value 16.7 ng/mL Normal [facility] Comment on above: Performed By: #### A FPMAT #### [facility] [address] [address] [address] Emilee Springer AFP, Serum for Spina Bifida Report Normal [facility] Comment on above: Performed By: #### A FPMAT #### [facility] [address] [address] [address] Emilee Springer Comment Comment Normal [facility] Comment on above: Result Comment: Darío Machado, Ph.D., [facility] Director . References: Available Upon Request. . Multiples Of Median Cutoffs For AFP Elevations Berkowitz 2.5 Black 2.8 IDD 2.0 Twins 4.5 Abbreviation Definitions IDD - Insulin Dep Diabetes OSBR - Open Spina Bifida Risk . For further inquiries contact [employer] at [phone]. . This test was developed and its performance characteristics determined by [employer]. It has not been cleared or approved by the Food and Drug Administration. Performed By: #### A FPMAT #### [facility] [address] [address] [address] Emilee Worrell Age Collection Date 18.6 weeks Normal [facility] Comment on above: Performed By: #### A FPMAT #### [facility] [address] [address] [address] Emilee Springer Gestat, Age Based on JOCELIN [facility] Comment on above: Result Comment: 12/2022 Recalculations are not recommended when gestational dating by LMP and ultrasound are within 10 days. Performed By: #### A FPMAT #### [facility] [address] [place] [address] Dr. Emilee Springer Insulin Dep Diabetes Comment Normal [facility] Comment on above: Result Comment: Not provided. . Performed By: #### A FPMAT #### [facility] [address] [address] [address] Emilee Springer Interpretation Comment Normal [facility] Comment on above: Result Comment: Inte rpretation: [...] Customer Services to discuss available options. The [employer] recommends amniocentesis be offered to women age 35 and older. Performed By: #### A FPMAT #### [facility] [address] [place] [address] Dr. Emilee Springer [age] Normal [facility] Comment on above: Performed By: #### A FPMAT #### [facility] [address] [place] [address] Dr. Emilee Springer Multiple Gestation Comment Normal [facility] Comment on above: Result Comment: Not provided. . Performed By: #### A FPMAT #### [facility] [address] [place] [address] Dr. Emilee Springer OS[place] [address] [facility] Comment on above: Performed By: #### A FPMAT #### [facility] [address] [place] [address] Dr. Emilee Springer PDF . Normal [facility] Comment on above: Performed By: #### A FPMAT #### [facility] [address] [place] [address] Dr. Emilee Springer Race Comment Normal [facility] Comment on above: Result Comment: Not provided. . Performed By: #### A FPMAT #### [facility] [address] [place] [address] Dr. Emilee Springer Test Results: Negative Normal [facility] Comment on above: Performed By: #### A FPMAT #### [facility] [address] [place] [address] Dr. Emilee Springer Rubella antibody, IgGon -0 Rubella virus IgG Ql (S) 314.5 IU/mL [facility] Comment on above: REFERENCE RANGE: <5.0 NON-REACTIVE (non-immune) 5.0 TO 9.9 EQUIVOCAL >=10.0 REACTIVE (immune) [facility] HEP B SURFACE ANTIGEN SCREEN on 07-05-2022 HBsAg Screen Negative Normal Negative [facility] Comment on above: Performed By: #### H BSANS #### [facility] [address] [place] [address] Dr. Emilee Springer HEPATITIS C VIRUS AB W/ REFL EX QUANTon 07-05-2022 HCV AB <0.1 Normal 0.0-0.9 [facility] Comment on above: Performed By: #### H CVPCRR #### [facility] [address] [place] [address] Dr. Emilee Springer Interpretation: Comment Normal [facility] Comment on above: Result Comment: Nega tive Not infected with HCV, unless recent infection is suspected or other evidence exists to indicate HCV infection. Performed By: #### H CVPCRR #### [facility] [address] [place] [address] Dr. Emilee Springer HIV 1 AND 2 WITH REFLEXon HIV Screen 4th Generation wRfx Non-Reactive Normal Non Reactive [facility] Comment on above: Result Comment: HIV Negative HIV-1/HIV-2 antibodies and HIV-1 p24 antigen were NOT detected. There is no laboratory evidence of HIV infection. Performed By: #### C BC #### [facility] [address] [place] [address] Dr. Emilee Springer RPR QUANTon 07-05-2022 Rapid Plasma Reagin, Quant Non-Reactive Normal NonRea<1:1 [facility] Comment on above: Result Comment: Calvin wilson Note: This test does not meet current guidelines for screening and diagnosis of syphilis. This test is intended for following treatment response in patients being treated for syphilis infection. To screen for syphilis infection, a reflex cascade that includes both RPR and a treponema-specific assay should be utilized, such as Treponema pallidum (Syphilis) Screening Clemons (833690) or Rapid Plasma Reagin (RPR) Test With Reflex to Quantitative RPR and Confirmatory Treponema pallidum Antibodies (885661). Performed By: #### C BC #### [facility] [address] [place] [address] Dr. Emilee Springer RUBELLA AB IGGon 07-05-2022 Rubella Antibodies, IgG 5.03 index Normal Immune >0.99 [facility] Comment on above: Result Comment: Non- immune <0.90 Equivocal 0.90 - 0.99 Immune >0.99 Performed By: #### R UBIGG #### [facility] [address] [place] [address] Dr. Emilee Springer CBC AUTO DIFFon 07-04-2022 BASO # 0.0 103/ul Normal 0.0-0.1 [facility] Comment on above: Performed By: #### G LU1HR #### [facility] [address] [place] [address] Dr. Emilee Springer Basophils/100 WBC (Bld) 0.2 % Normal 0.2-2.0 [facility] Comment on above: Performed By: #### G LU1HR #### [facility] [address] [place] [address] Dr. Emilee Springer EO # 0.1 103/ul Normal 0.0-0.7 [facility] Comment on above: Performed By: #### G LU1HR #### [facility] [address] [place] [address] Dr. Emilee Springer Eosinophils/100 WBC (Bld) 0.9 % Normal 0.9-7.0 [facility] Comment on above: Performed By: #### G LU1HR #### [facility] [address] [place] [address] Dr. Emilee Springer Erythrocyte distribution width (RBC) [Ratio] 11.9 % Normal 11.0-15.0 [facility] Comment on above: Performed By: #### G LU1HR #### [facility] [address] [place] [address] Dr. Emilee Springer Hematocrit (Bld) [Volume fraction] 32.9 % Critically low 36.0-48.0 [facility] Comment on above: Performed By: #### G LU1HR #### [facility] [address] [place] [address] Dr. Emilee Springer Hemoglobin (Bld) [Mass/Vol] 11.6 g/dL Critically low 12.0-16.0 [facility] Comment on above: Performed By: #### G LU1HR #### [facility] [address] [place] [address] Dr. Emilee Springer IG # 0.03 10e3/ul Normal 0.00-0.03 [facility] Comment on above: Performed By: #### G LU1HR #### [facility] [address] [place] [address] Dr. Emilee Springer IG % 0.3 % Normal 0.0-0.5 [facility] Comment on above: Performed By: #### G LU1HR #### [facility] [address] [place] [address] Dr. Emilee Springer LYMPH # 2.1 103/ul Normal 1.2-3.8 [facility] Comment on above: Performed By: #### G LU1HR #### [facility] [address] [place] [address] Dr. Emilee Springer Lymphocytes/100 WBC (Bld) 20.2 % Critically low 20.5-60.0 [facility] Comment on above: Performed By: #### G LU1HR #### [facility] [address] [place] [address] Dr. Emilee Springer MANUAL DIFF REQ NO Normal [facility] Comment on above: Performed By: #### G LU1HR #### [facility] [address] [place] [address] Dr. Emilee Springer MCH (RBC) [Entitic mass] 31.4 pg Normal 26.7-34.0 [facility] Comment on above: Performed By: #### G LU1HR #### [facility] [address] [place] [address] Dr. Emilee Springer MCHC (RBC) [Mass/Vol] 35.3 g/dL Critically high 29.9-35.2 [facility] Comment on above: Performed By: #### G LU1HR #### [facility] [address] [place] [address] Dr. Emilee Springer MCV (RBC) [Entitic vol] 89.2 fL Normal 81.0-99.0 [facility] Comment on above: Performed By: #### G LU1HR #### [facility] [address] [place] [address] Dr. Emilee Springer MONO # 0.7 103/ul Normal 0.3-0.8 [facility] Comment on above: Performed By: #### G LU1HR #### [facility] [address] [place] [address] Dr. Emilee Springer Monocytes/100 WBC (Bld) 7.0 % Normal 1.7-12.0 [facility] Comment on above: Performed By: #### G LU1HR #### [facility] [address] [place] [address] Dr. Emilee Springer NEUT # 7.5 103/ul Critically high 1.4-6.5 [facility] Comment on above: Performed By: #### G LU1HR #### [facility] [address] [place] [address] Dr. Emilee Springer Neutrophils/100 WBC (Bld) 71.4 % Normal 43.0-75.0 [facility] Comment on above: Performed By: #### G LU1HR #### [facility] [address] [address] [address] Emilee Springer Platelet mean volume (Bld) [Entitic vol] 9.1 fL Critically low 9.5-13.5 [facility] Comment on above: Performed By: #### G LU1HR #### [facility] [address] [address] [address] Emilee Springer PLT 311 103/ul Normal 150-450 [facility] Comment on above: Performed By: #### G LU1HR #### [facility] [address] [address] [address] Emilee Springer RBC 3.69 106/ul Critically low 4.20-5.40 [facility] Comment on above: Performed By: #### G LU1HR #### [facility] [address] [address] [address] Emilee Springer WBC 10.5 103/ul Normal 4.0-11.0 [facility] Comment on above: Performed By: #### G LU1HR #### [facility] [address] [place] [address] Dr. Emilee Springer CULTURE URINEon 07-04-2022 CULTURE URINE Culture Observations: LIGHT GROWTH OF MIXED GENITAL BREN. NO POTENTIAL PATHOGENS SEEN. Normal [facility] Comment on above: Performed By: #### G LU1HR #### [facility] [address] [address] [address] Emilee Springer GLYCOHEMOGLOBIN A1Con 2021 ADA RECOMMENDATION SEE BELOW Normal [facility] Comment on above: Result Comment: ADA RECOMMENDED LIMIT 4.0 - 6.0 ADA THERAPEUTIC TARGET < 7.0 ACTION SUGGESTED > 7.0 Performed By: #### A 1C #### [facility] [address] [address] [address] Emilee Springer Glucose [Mass/Vol] 108 mg/dL Normal [facility] Comment on above: Performed By: #### A 1C #### [facility] [address] [place] [address] Dr. Emilee Springer HbA1c (Bld) [Mass fraction] 5.4 % Normal 4.5-6.2 [facility] Comment on above: Performed By: #### A 1C #### [facility] [address] [address] [address] Emilee Springer ALLEN BOX TEST PT SEND OUTo n 07-04-2022 SENT TO REF LAB 07/04/2022 Normal [facility] Comment on above: Performed By: #### N BOX #### [facility] [address] [address] [address] Emilee Springer TYPE AND SCREENon 07-04-2022 TYPE AND SCREEN Negative Normal [facility] Comment on above: Performed By: #### G LU1HR #### [facility] [address] [address] [address] Eimlee Springer US PREG TVon 06-23-2022 US PREG [...] 9 weeks 4 days Electronically authenticated by: YLEENA CARLOS Date: 2022-06-23 17:00 Normal [facility] HCG, Quantitative, on 06-02-2022 hCG Quant [id number] High NINF [facility] Comment on above: Non-preg premeno <=5 Postmeno <=8 Male <=3 If HCG results do not concur with clinical observations, additional testing to confirm results is recommended. Interpretation and review of laboratory results Abnormal [facility] PAP ACOG PANEL 2: 21 to 29on 04-24-2022 . . Normal [facility] Comment on above: Performed By: #### 4 [id number] #### [facility] [address] [address] [address] Emilee Springer Age Gdln ACOG Testing 21-29 Normal [facility] Comment on above: Performed By: #### 4 [id number] #### [facility] [address] [place] [address] Dr. Emilee Springer DIAGNOSIS: Comment Normal [facility] Comment on above: Result Comment: NEGA TIVE FOR INTRAEPITHELIAL LESION OR MALIGNANCY. CELLULAR CHANGES ASSOCIATED WITH INFLAMMATION ARE PRESENT. Performed By: #### 4 [id number] #### [facility] [address] [place] [address] Dr. Emilee Springer Methodology: Comment Normal [facility] Comment on above: Result Comment: This liquid based ThinPrep(R) pap test was screened with the use of an image guided system. Performed By: #### 4 [id number] #### [facility] [address] [place] [address] Dr. Emilee Springer Note: Comment Normal [facility] Comment on above: Result Comment: The Pap smear is a screening test designed to aid in the detection of premalignant and malignant conditions of the uterine cervix. It is not a diagnostic procedure and should not be used as the sole means of detecting cervical cancer. Both false-positive and false-negative reports do occur. . Performed By: #### 4 [id number] #### [facility] [address] [place] [address] Dr. Emilee Springer Performed by: Comment Normal [facility] Comment on above: Result Comment: Maynor Adams, Supervisor [employer] Performed By: #### 4 [id number] #### [facility] [address] [place] [address] Dr. Emilee Springer Reflex Criteria: Comment Normal [facility] Comment on above: Result Comment: The HPV DNA reflex criteria were not met with this specimen result therefore, no HPV testing was performed. . Performed By: #### 4 [id number] #### [facility] [address] [place] [address] Dr. Emilee Springer Specimen adequacy: Comment Normal [facility] Comment on above: Result Comment: Sati sfactory for evaluation. Endocervical and/or squamous metaplastic cells (endocervical component) are present. Performed By: #### 4 [id number] #### [facility] [address] [place] [address] Dr. Emilee Springer HCG, Quantitative, on 08-10-2021 hCG Quant 45 High <5 IU/L [email or web address] Comment on above: Non-preg premeno <=5 Postmeno <=8 Male <=3 If HCG results do not concur with clinical observations, additional testing to confirm results is recommended. Elevated results not associated with may be found in patients with other diseases such as tumors of the germ cells (testis, ovaries, etc.), bladder, pancreas, stomach, lungs, and liver. Interpretation and review of laboratory results Abnormal [facility] US RENAL COMPLETEOrdered By: Lorena Ricks on 11-25-2020 Unremarkable ultrasound of the kidneys and urinary bladder. Do It In Person Phone: EXAMINATION: RETROPERITONEAL ULTRASOUND OF THE KIDNEYS AND URINARY BLADDER 11/25/2020 COMPARISON: None HISTORY: ORDERING SYSTEM PROVIDED HISTORY: Frequent UTI TECHNOLOGIST PROVIDED HISTORY: This procedure can be scheduled via [employer]. Access your [employer] account by visiting [facility]. FINDINGS: Kidneys: The right kidney measures 11.1 cm in length and the left kidney measures 11.6 cm in length. Kidneys demonstrate normal cortical echogenicity. No evidence of hydronephrosis or intrarenal stones. Bladder: Unremarkable appearance of the bladder. No significant post void residual. Do It In Person Phone: [place], [place] Incoming Radiant Results From [employer] - 11/25/2020 3:59 PM EDT EXAMINATION: RETROPERITONEAL ULTRASOUND OF THE KIDNEYS AND URINARY BLADDER 11/25/2020 COMPARISON: None HISTORY: ORDERING SYSTEM PROVIDED HISTORY: Frequent UTI TECHNOLOGIST PROVIDED HISTORY: This procedure can be scheduled via [employer]Pack. Access your [employer]Pack account by visiting [facility]. FINDINGS: Kidneys: The right kidney measures 11.1 cm in length and the left kidney measures 11.6 cm in length. Kidneys demonstrate normal cortical echogenicity. No evidence of hydronephrosis or intrarenal stones. Bladder: Unremarkable appearance of the bladder. No significant post void residual. IMPRESSION: Unremarkable ultrasound of the kidneys and urinary bladder. Do It In Person Phone: [employer] 10-14-2020 Forms [id number] 1.00CD:127 Normal [facility] Ambulatory Clinical Summaryo n 10-13-2020 Ambulatory Clinical Summary {[id number] Normal [facility] General Surgery Office/Clini c Noteon 10-13-2020 General Surgery Office/Clinic Note Chief Complaint post operative follow up HPI Staff 8 day post operative follow up post lap appendectomy completed while in-patient at [facility]. Doing well. Minimal discomfort. Taking Ibuprofen [...] available Patient Education Exercise to Lose Weight, Mzms-co-Qfqg Problem List/Past Medical History Ongoing Acute appendicitis [...] Family History Family history is negative Normal [facility] Comment on above: Result Comment: Elec tronically Signed By: LATANYA MCKENNA, Sushant Simpson.nani\Date and Time Signed: 10/13/20 13:39 EDT Patient [...] Document Reviewed: 08/12/2011 ExitCare? Patient Information ?2014 [employer]. [facility] Provider Letter FTMCon 10-13 Provider Letter [facility] October 13, 2020 VINNY VERMA [address] [place] [address] VINNY VERMA 2000 To Whom It May Concern, Please excuse above patient from work 10/14/20. Sincerely, Dr. Sushant Lott MD General Surgery Normal [facility] Pathology Noteon 10-08-2020 Pathology Note [id number] #1.00CD:127 [facility] Facesheeton 10-07-2020 Facesheet [id number]#1.00CD:127 Normal [facility] Operative Reporton 03-17-202 1 Operative Report [id number]# 1.00CD:127 Normal [facility] HIV Screenon 05-05-2020 HIV Ag/Ab NONREACTIVE NONREACTIVE [place] Comment on above: No laboratory eviden ce of HIV infection. If acute HIV infection is suspected, consider testing for HIV-1 RNA. Basic Metabolic Panelon 04-23 Anion gap [Moles/Vol] 11 mmol/L 9 - 17 mmol/L [place], [place] Bun/Cre Ratio 19 [place], [place] Calcium [Mass/Vol] 9.3 mg/dL 8.6 - 10. 4 mg/dL [place] Chloride [Moles/Vol] 103 mmol/L 98 - 107 mmol/L [place] CO2 [Moles/Vol] 23 mmol/L 20 - 31 mmol/L [place] Creatinine [Mass/Vol] 0.57 mg/dL 0.5 - 0.9 mg/dL [place] GFR >60 >60 mL/min [place] GFR Non- >60 >60 mL/min [place] Glucose [Mass/Vol] 88 mg/dL 70 - 99 mg/dL [place] Potassium [Moles/Vol] 4.6 mmol/L 3.7 - 5.3 mmol/L [place] Sodium [Moles/Vol] 137 mmol/L 135 - 144 mmol/L [place] Urea nitrogen [Mass/Vol] 11 mg/dL 6 - 20 mg/dL [place] CBCon 05-04-2020 Erythrocyte distribution width (RBC) [Ratio] 11.7 % Low 11.8 - 14.4 % [place] Hematocrit (Bld) [Volume fraction] 36.4 % 36.3 - 47.1 % [place] Hemoglobin (Bld) [Mass/Vol] 12.2 g/dL 11.9 - 15.1 g/dL [place] Interpretation and review of laboratory results Abnormal [place] MCH (RBC) [Entitic mass] 31.4 pg 25.2 - 33.5 pg [place] MCHC (RBC) [Mass/Vol] 33.5 g/dL 28.4 - 34.8 g/dL [place] MCV (RBC) [Entitic vol] 93.8 fL 82.6 - 102.9 fL [place] Platelet mean volume (Bld) [Entitic vol] 9.2 fL 8.1 - 13.5 fL [place] Platelets (Bld) [#/Vol] 307 10*3/uL [place] RBC (Bld) [#/Vol] 3.88 10*6/uL Low 3.95 - 5.1 1 m/uL [place] WBC (Bld) [#/Vol] 7.2 10*3/uL [place] WBC (Bld) [#/Vol] 0.0 10*3/uL 0.0 per 100 WBC M [place], [place] Metabolic Panelon 05-04-2020 GFR/1.73 sq M predicted among non-blacks MDRD (S/P/Bld) [Vol rate/Area] [place], [place] Comment on above: Stage 1: Some [...] body mass. Additional eGFR calculator available at: http://www.Pathable.Kaymu.pk/multiple_crcl_2012.htm TSHon 05-04-2020 TSH Qn 2.22 m[IU]/L [place] Vital Signs Date Time Vital Sign Value Performing Clinician Facility 04-30-2025 15:110 Body mass index (BMI) [Ratio] 36.7 kg/m2 Ceasar Li NP Work Phone: [facility] 04-30-2025 15:11-0400 Body weight 103.15 kg Ceasar Limonly WAREHOUSE OPERATOR Work Phone: [facility] 04-30-2025 15:11-0400 Diastolic blood pressure 70 mm[Hg] Ceasar Milelrerly WAREHOUSE OPERATOR Work Phone: [facility] 04-30-2025 15:11-0400 Systolic blood pressure 110 mm[Hg] Ceasar Limonly WAREHOUSE OPERATOR Work Phone: [facility] 04-14-2025 15:50-0400 Body mass index (BMI) [Ratio] 36.64 kg/m2 Virgil Oralia PA Work Phone: [facility] 04-14-2025 15:50-0400 Body weight 102.97 kg Virgil Miller PA Work Phone: [facility] 04-14-2025 15:50-0400 Diastolic blood pressure 60 mm[Hg] Virgil Miller PA Work Phone: [facility] 04-14-2025 15:50-0400 Systolic blood pressure 110 mm[Hg] Virgil Oralia PA Work Phone: [facility] 04-03-2025 15:44-0400 Body mass index (BMI) [Ratio] 36.61 kg/m2 Virgil Miller PA Work Phone: [facility] 04-03-2025 15:44-0400 Body weight 102.88 kg Virgil Miller PA Work Phone: [facility] 04-03-2025 15:44-0400 Diastolic blood pressure 70 mm[Hg] Virgil Oralia PA Work Phone: [facility] 04-03-2025 15:44-0400 Systolic blood pressure 120 mm[Hg] Virgil Oralia PA Work Phone: [facility] 03-12-2025 16:08-0400 Body mass index (BMI) [Ratio] 36.12 kg/m2 Mukul Law DO Work Phone: [facility] 03-12-2025 16:08-0400 Body weight 101.52 kg Mukul Law DO Work Phone: [facility] 03-12-2025 16:08-0400 Diastolic blood pressure 70 mm[Hg] Mukul Law DO Work Phone: [facility] 03-12-2025 16:08-0400 Systolic blood pressure 100 mm[Hg] Mukul Law DO Work Phone: [facility] 02-26-2025 15:58-0400 Body mass index (BMI) [Ratio] 35.96 kg/m2 Mukul Law DO Work Phone: [facility] 02-26-2025 15:58-0400 Body weight 101.06 kg Mukul Law DO Work Phone: [facility] 02-26-2025 15:58-0400 Diastolic blood pressure 70 mm[Hg] Mukul Law DO Work Phone: [facility] 02-26-2025 15:58-0400 Systolic blood pressure 110 mm[Hg] Mukul Law DO Work Phone: [facility] 02-11-2025 14:06-0400 Body mass index (BMI) [Ratio] 34.99 kg/m2 Mukul Law DO Work Phone: [facility] 02-11-2025 14:06-0400 Body weight 98.34 kg Mukul Law DO Work Phone: [facility] 02-11-2025 14:06-0400 Diastolic blood pressure 76 mm[Hg] Mukul Law DO Work Phone: [facility] 02-11-2025 14:06-0400 Systolic blood pressure 116 mm[Hg] Mukul Law DO Work Phone: [facility] 01-15-2025 16:41-0400 Body mass index (BMI) [Ratio] 34.19 kg/m2 Mukul Law DO Work Phone: [facility] 01-15-2025 16:41-0400 Body weight 96.07 kg Mukul Law DO Work Phone: [facility] 01-15-2025 16:41-0400 Diastolic blood pressure 72 mm[Hg] Mukul Law DO Work Phone: [facility] 01-15-2025 16:41-0400 Systolic blood pressure 118 mm[Hg] Mukul Law DO Work Phone: [facility] 12-18-2024 16:15-0400 Body mass index (BMI) [Ratio] 34.22 kg/m2 Mukul Law DO Work Phone: [facility] 12-18-2024 16:15-0400 Body weight 96.16 kg Mukul Law DO Work Phone: [facility] 12-18-2024 16:15-0400 Diastolic blood pressure 70 mm[Hg] Mukul Law DO Work Phone: [facility] 12-18-2024 16:15-0400 Systolic blood pressure 116 mm[Hg] Mukul Law DO Work Phone: [facility] 11-14-2024 15:15-0400 Body mass index (BMI) [Ratio] 33.57 kg/m2 Noms Nurse [facility] 11-14-2024 15:15-0400 Body weight 94.35 kg Nom Nurse [facility] 11-14-2024 15:15-0400 Diastolic blood pressure 74 mm[Hg] Nom Nurse [facility] 11-14-2024 15:15-0400 Systolic blood pressure 122 mm[Hg] Nom Nurse [facility] 07-15-2024 16:25-0500 Body mass index (BMI) [Ratio] 32.93 kg/m2 Mukul Law DO Work Phone: [facility] 07-15-2024 16:25-0500 Body weight 92.53 kg Mukul Law DO Work Phone: [facility] 08-31-2022 03:06-0500 Body weight 94.[address] MUKUL FOY . [facility] Comment on above: Performed By: #### AFPMAT #### [facility] [address] [place] [address] Dr. Emilee Springer Encounters Encounter Date Encounter Type Care Provider Facility Start: 04-30-2025 End: 04-30-2025 ambulatory CEASAR LI Not Available Start: 04-30-2025 End: 04-30-2025 flow sheet Ceasar Li WAREHOUSE OPERATOR Work Phone: [facility] Comment on above: Third trimester preg gunner ([facility]); 32 weeks gestation of ([facility]) Start: 04-30-2025 End: 04-30-2025 Bamboo flowsheet Ceasar Li WAREHOUSE OPERATOR Work Phone: [facility] Start: 04-30-2025 End: 04-30-2025 Bamboo flowsheet Ceasar Li WAREHOUSE OPERATOR Work Phone: [facility] Start: 04-30-2025 End: 04-30-2025 Clinisync Result Encounter Mukul Foy DO Work Phone: [facility] Unsolicited Start: 04-14-2025 End: 04-14-2025 ambulatory VIRGIL BARTON Not Available Start: 04-14-2025 End: 04-14-2025 flow sheet Virgil Barton PA Work Phone: [facility] Comment on above: Third trimester preg gunner ([facility]); 30 weeks gestation of ([facility]) Start: 04-14-2025 End: 04-14-2025 Bamboo flowsheet Virgil RUIZ Work Phone: [facility] Start: 04-14-2025 End: 04-14-2025 Bamboo flowsheet Virgil RUIZ Work Phone: [facility] Start: 04-05-2025 End: 04-05-2025 Clinisync Result Encounter Virgil RUIZ Work Phone: [facility] Unsolicited Start: 04-05-2025 End: 04-05-2025 Clinisync Result Encounter Virgil RUIZ Work Phone: [facility] Unsolicited Start: 04-03-2025 End: 04-03-2025 ambulatory VIRGIL BARTON Not Available Start: 04-03-2025 End: 04-03-2025 flow sheet Virgil RUIZ Work Phone: [facility] [place] [facility] Comment on above: 28 weeks gestation o f ([facility]); Third trimester ([facility]); Dizziness; Gestational diabetes mellitus (GDM), antepartum, gestational diabetes method of control unspecified ([facility]); History of miscarriage; Anemia, unspecified type; UTI symptoms Start: 04-03-2025 End: 04-03-2025 Bamboo flowsheet Vrigil RUIZ Work Phone: [facility] Start: 04-03-2025 End: 04-03-2025 Bamboo flowsheet Virgil RUIZ Work Phone: [facility] Start: 03-12-2025 End: 03-12-2025 ambulatory MUKUL LAW Not Available Start: 03-12-2025 End: 03-12-2025 flow sheet Mukul Law DO Work Phone: [facility] [place] [facility] Comment on above: 25 weeks gestation o f ([facility]); Second trimester ([facility]); Gastroesophageal reflux disease without esophagitis Start: 03-12-2025 End: 03-12-2025 Bamboo flowsheet Mukul Law DO Work Phone: [facility] Start: 03-12-2025 End: 03-12-2025 Bamboo flowsheet Mukul Law DO Work Phone: [facility] Start: 02-26-2025 End: 02-26-2025 ambulatory MUKUL LAW Not Available Start: 02-26-2025 End: 02-26-2025 flow sheet Mukul Law DO Work Phone: [facility] [place] Comment on above: 23 weeks gestation o f ([facility]); Elevated blood sugar level; Gastroesophageal reflux disease without esophagitis Start: 02-26-2025 End: 02-26-2025 Bamboo flowsheet Mukul Law DO Work Phone: [facility] Start: 02-26-2025 End: 02-26-2025 Bamboo flowsheet Mukul Law DO Work Phone: [facility] Start: 02-11-2025 End: 02-11-2025 flow sheet Mukul Law DO Work Phone: [facility] Comment on above: Second trimester pre gnancy ([facility]); 20 weeks gestation of ([facility]) Start: 02-11-2025 End: 02-11-2025 ambulatory MUKUL LAW Not Available Start: 01-15-2025 End: 01-15-2025 ambulatory MUKUL LAW Not Available Start: 01-15-2025 End: 01-15-2025 flow sheet Mukul Law DO Work Phone: [facility] Comment on above: Second trimester pre gnancy ([facility]); 17 weeks gestation of ([facility]); Vaginal discharge; STD exposure; Screening, , for anatomic survey ([facility]); Gastroesophageal reflux in ([facility]); Gestational diabetes mellitus (GDM), antepartum, gestational diabetes method of control unspecified ([facility]) Start: 01-15-2025 End: 01-15-2025 Bamboo flowsheet Mukul Law DO Work Phone: [facility] Start: 01-15-2025 End: 01-17-2025 Bamboo flowsheet Mukul Law DO Work Phone: [facility] Start: 01-15-2025 End: 01-17-2025 External Result Encounter Virgil RUIZ Work Phone: [facility] Unsolicited Start: 01-07-2025 End: 01-07-2025 ambulatory YNES M RODRIGUEZ [facility] Start: 01-07-2025 End: 01-07-2025 Subsequent hospital visit by physician Ynes Rodriguez FIRE REGULATOR - NURSING AIDE Work Phone: [facility] Start: 12-23-2024 End: 12-23-2024 Clinisync Result Encounter Mukul Law DO Work Phone: [facility] Department Unsolicited Start: 12-23-2024 End: 12-23-2024 Clinisync Result Encounter Mukul Law DO Work Phone: [facility] Unsolicited Start: 12-20-2024 End: 12-22-2024 ambulatory YNES RODRIGUEZ [facility] Start: 12-20-2024 End: 12-22-2024 Subsequent hospital visit by physician [facility] Ultrasound Room [facility] Ultrasound Comment on above: Subchorionic [...] exam Start: 07-15-2024 End: 07-15-2024 ambulatory MUKUL FOY Not Available Start: 07-15-2024 End: 07-23-2024 Clinisync Result Encounter Mukul Law DO Work Phone: [facility] Unsolicited Start: 07-15-2024 End: 07-23-2024 Clinisync Result Encounter Mukul Law DO Work Phone: [facility] Unsolicited Start: 05-20-2024 End: 05-20-2024 ambulatory [facility] Start: 05-20-2024 End: 05-20-2024 Subsequent hospital visit by physician Ynes Steele CNP Work Phone: [facility] Comment on above: Elevated liver enzym es; Mixed hyperlipidemia Start: 03-06-2024 End: 03-08-2024 ambulatory YNES [facility] Start: 02-16-2024 End: 02-16-2024 ambulatory YNES [facility] Start: 08-06-2023 End: 08-06-2023 ambulatory Facility:[facility] Start: 07-11-2023 End: 07-11-2023 ambulatory RAJENDRA SHEFFIELD [facility] Start: 03-20-2023 End: 03-20-2023 ambulatory ISRAEL [facility] Start: 12-17-2022 End: 12-17-[address] MUKUL FOY . Facility:[facility] Start: 12-12-2022 End: 12-12-[address] KYLIE SEYMOUR . Facility:[facility] Start: 12-10-2022 End: 12-10-[address] MUKUL FOY . Facility:[facility] Start: 10-31-2022 End: 11-01-[address] MUKUL FOY . Facility:[facility] Start: 10-22-2022 End: 10-23-2022 ambulatory VIRGIL ORALIA . Facility:[facility] Start: 10-15-2022 End: 10-16-[address] MUKUL FOY . Facility:[facility] Start: 09-12-2022 End: 09-12-[address] MUKUL FOY . Facility:[facility] Start: 09-10-2022 End: 09-11-[address] MUKUL FOY . Facility:[facility] Start: 08-29-2022 End: 08-30-[address] MUKUL FOY . Facility:[facility] Start: 08-01-2022 End: 08-01-2022 [facility] Start: 07-04-2022 End: 07-05-[address] MUKUL FOY . Facility:[facility] Start: 06-23-2022 End: 06-24-[address] YELENA CARLOS Facility:[facility] Start: 06-09-2022 End: 06-10-[address] MUKUL FOY . Facility:[facility] Start: 06-02-2022 End: 06-02-2022 Subsequent hospital visit by physician Ynes Steele CNP [facility] Phone[facility] Start: 04-18-2022 End: 04-18-[address] MUKUL FOY . Facility: Start: 09-23-2021 End: 09-27-2021 ambulatory BERTO LIVE [facility] Start: 09-08-2021 End: 09-12-2021 ambulatory MUKUL [facility] Start: 08-25-2021 End: 08-29-2021 ambulatory [facility] Start: 08-19-2021 End: 08-23-2021 ambulatory [facility] Start: 08-10-2021 End: 08-10-2021 Subsequent hospital visit by physician Ynes Steele CNP Work Phone: [facility] Comment on above: Amenorrhea Start: 11-25-2020 End: 11-27-2020 Subsequent hospital visit by physician [place] Ultrasound Room [facility] Radiology Comment on above: Frequent [...] Date Procedure Procedure Detail Performing Clinician Start: 04-30-2025 US OB BPP W NON-STRESS Mukul Law DO Work Phone: Start: 04-30-2025 Urnls dip stick/tabl et rgnt non-auto w/o micrscp Ceasar Li NP Work Phone: Start: 04-14-2025 Urnls dip stick/tabl et rgnt non-auto w/o micrscp Virgil RUIZ Work Phone: Start: 04-05-2025 US OB GROWTH Virgil RUIZ Work Phone: Start: 04-05-2025 ALL CBC WITH AUTO DIFF Virgil RUIZ Work Phone: Start: 04-03-2025 Urnls dip stick/tabl et rgnt non-auto w/o micrscp Virgil RUIZ Work Phone: Start: 03-12-2025 Urnls dip stick/tabl et rgnt non-auto w/o micrscp Mukul Law DO Work Phone: Start: 02-26-2025 Urnls dip stick/tabl et rgnt non-auto w/o micrscp Mukul Law DO Work Phone: Start: 02-11-2025 Urnls dip stick/tabl et rgnt non-auto w/o micrscp Mukul Law DO Work Phone: Start: 01-15-2025 RECURRENT VAGINITIS (HTRX) Virgil RUIZ Work Phone: Start: 01-07-2025 Blood count complete automated Virgil Barton PA-C Work Phone: Start: 12-23-2024 US [...] in Cervix by Cyto stain Ynes Rodriguez FIRE REGULATOR - NURSING AIDE Work Phone: Start: 05-20-2024 Lipid panel Ynes hess FIRE REGULATOR - NURSING AIDE Work Phone: Start: 05-20-2024 Comprehensive metabo lic panel Ynes Rodriguez FIRE REGULATOR - NURSING AIDE Work Phone: Start: 07-15-2023 Microscopic observat ion [Identifier] in Cervix by Cyto stain [facility] Start: 08-01-2022 Antibody rubella Fran Barroso FIRE REGULATOR - NURSING AIDE Work Phone: Start: 06-02-2022 Gonadotropin chorion ic quantitative Mukul Foy MD Work Phone: Start: 08-10-2021 Gonadotropin chorion ic quantitative Berto Live FIRE REGULATOR - CN Work Phone: Start: 11-25-2020 Us retroperitoneal r eal time w/image complete Lorena Ricks FIRE REGULATOR - NURSING AIDE Work Phone: Start: 05-04-2020 Antibody hiv-1&hiv-2 single result Ynes Rodriguez Work Phone: Start: 05-04-2020 Assay of thyroid sti mulating hormone tsh Ynes Rodriguez Work Phone: Start: 05-04-2020 Basic metabolic pane l calcium total Ynes Rodriguez Work Phone: Start: 05-04-2020 Blood count complete automated Ynes Rodriguez Work Phone: Start: 03-03-2020 Microscopic observat ion [Identifier] in Cervix by Cyto stain Ynes Rodriguez FIRE REGULATOR - NURSING AIDE Work Phone: Plan of Treatment Date Care Activity Detail Author Start: 07-15-2027 Screening for malign ant neoplasm of cervix Pap smear [facility] Start: 07-15-2026 Screening for malign ant neoplasm of cervix Pap smear [facility] Start: 08-07-2025 Depression Screen Depression Screen [facility] Start: 07-28-2025 End: 07-28-2025 Patient encounter procedure [facility] Start: 05-20-2025 Lipid panel Lipids [facility] Start: 05-14-2025 End: 05-14-2025 Patient encounter procedure 05/14/2025 2:50 PM EDT Routine DIANE SANTO [address] [place] [id number] Mukul Foy DO [address] [place] [address] [facility] Start: 05-14-2025 End: 05-14-2025 Patient encounter procedure 05/14/2025 11:40 AM EDT Office Visit [facility] [address] [place] [address] Dr Torres [address] [place] [address] Ynes Rodriguez, FIRE REGULATOR - NURSING AIDE [address] [facility] [address] [address] [place], [place] [id number] 6 month f/u [facility] Comment on above: 6 month f/u Start: 04-30-2025 End: 04-30-2025 Patient encounter procedure 04/30/2025 3:00 PM EDT Routine [facility] [address] [phone] Ceasar Li, ASHWIN [address] [place] [phone] [facility] Start: 04-14-2025 End: 04-14-2025 Patient encounter procedure 04/14/2025 3:20 PM EDT Routine [facility] [address] [phone] Virgil Barton, PA [address] [place] [place] [address] [facility] Start: 04-03-2025 End: 04-03-2025 Patient encounter procedure 04/03/2025 3:30 PM EDT Routine [facility] [address] [phone] Virgil Barton, PA [address] [place] [place] [address] [facility] Start: 04-03-2025 End: 04-03-2026 CBC W Auto Differential panel - Blood CBC and differential Lab Routine Dizziness Anemia, unspecified type Expected: 04/03/2025 (Approximate), Expires: 04/03/2026 [facility] Comment on above: Expected: 04/03/2025 (Approximate), Expires: 04/03/2026 Start: 04-03-2025 End: 10-01-2025 US biophysical profile w non stress test US biophysical profile w non stress test Imaging Routine 28 weeks gestation of ([facility]) Third trimester ([facility]) Gestational diabetes mellitus (GDM), antepartum, gestational diabetes method of control unspecified ([facility]) History of miscarriage Expected: 04/03/2025 (Approximate), Expires: 10/01/2025 [facility] Comment on above: Expected: 04/03/2025 (Approximate), Expires: 10/01/2025 Start: 04-03-2025 End: 08-03-2025 US for US OB follow up transabdominal approach Imaging Routine 28 weeks gestation of ([facility]) Third trimester ([facility]) Gestational diabetes mellitus (GDM), antepartum, gestational diabetes method of control unspecified ([facility]) History of miscarriage Expected: 04/03/2025, Expires: 08/03/2025 [facility] Work Phone: Comment on above: Expected: 04/03/2025 , Expires: 08/03/2025 Start: 03-24-2025 Influenza vaccination [facility] Start: 02-21-2025 Influenza vaccination Flu vacc ine (Season Ended) [facility] Start: 02-11-2025 End: 02-11-2025 Patient encounter procedure 02/11/2025 2:10 PM EDT Routine [facility] [address] [place] [phone] Mukul Foy, DO [address] [place] [address] [facility] Start: 02-11-2025 End: 02-11-2025 Professional / ancillary services management 02/11/2025 1:00 PM EDT Ancillary Procedure [facility] [address] [place] [phone] [facility] Start: 01-15-2025 End: 01-15-2025 Patient encounter procedure 01/15/2025 3:50 PM EDT Routine [facility] [address] [place] [phone] Mukul Foy, DO [address] [place] [address] [facility] Start: 01-15-2025 End: 07-17-2025 Alpha fetoprotein, maternal Alpha fetoprotein, maternal Lab Routine Second trimester ([facility]) 17 weeks gestation of ([facility]) Expected: 01/15/2025 (Approximate), Expires: 07/17/2025 [facility] Comment on above: Expected: 01/15/2025 (Approximate), Expires: 07/17/2025 Start: 01-15-2025 End: 04-17-2025 US for US OB 14+ weeks anatomy scan Imaging Routine Screening, , for anatomic survey ([facility]) Expected: 01/15/2025, Expires: 04/17/2025 [facility] [facility] Comment on above: Expected: 01/15/2025 , Expires: 04/17/2025 Start: 12-18-2024 End: 12-18-2024 Patient encounter procedure 12/18/2024 3:40 PM EDT Routine [facility] [address] [id number] Mukul Foy, DO [address] [place] [address] [facility] Start: 12-18-2024 End: 12-18-2025 CBC panel - Blood by Automated count CBC Lab Routine Diabetes mellitus screening Expected: 12/18/2024 (Approximate), Expires: 12/18/2025 [facility] Work Phone: Comment on above: Expected: 12/18/2024 (Approximate), Expires: 12/18/2025 Start: 12-18-2024 End: 12-18-2025 Measurement of glucose 1 hour after glucose challenge for glucose tolerance test Glucose tolerance, 1 hour Lab Routine Diabetes mellitus screening Expected: 12/18/2024 (Approximate), Expires: 12/18/2025 [facility] Comment on above: Expected: 12/18/2024 (Approximate), Expires: 12/18/2025 Start: 12-18-2024 End: 03-20-2025 US Pelvis transvaginal US OB transvaginal Imaging Routine Subchorionic hematoma in first trimester, single or unspecified fetus Expected: 12/18/2024, Expires: 03/20/2025 [facility] Work Phone: Comment on above: Expected: 12/18/2024 , Expires: 03/20/2025 Start: 11-14-2024 End: 11-14-2025 ABO/Rh ABO/Rh Lab Routine Missed menses , unspecified gestational age Expected: 11/14/2024 (Approximate), Expires: 11/14/2025 [facility] Comment on above: Expected: 11/14/2024 (Approximate), Expires: 11/14/2025 Start: 11-14-2024 End: 11-14-2025 Blood type and Indirect antibody screen panel - Blood Type and screen Lab Routine Missed menses , unspecified gestational age Expected: 11/14/2024 (Approximate), Expires: 11/14/2025 [facility] Comment on above: Expected: 11/14/2024 (Approximate), Expires: 11/14/2025 Start: 11-14-2024 End: 11-14-2025 Drugs of abuse panel - Urine by Screen method Rapid drug screen, urine Lab Routine , unspecified gestational age Encounter for supervision of normal first in first trimester Expected: 11/14/2024 (Approximate), Expires: 11/14/2025 [facility] Comment on above: Expected: 11/14/2024 (Approximate), Expires: 11/14/2025 Start: 11-06-2024 End: 02-05-2025 US Pelvis transvaginal US OB transvaginal Imaging Routine Missed menses Expected: 11/06/2024, Expires: 02/05/2025 [facility] Work Phone: Comment on above: Expected: 11/06/2024 , Expires: 02/05/2025 Start: 10-16-2024 End: 10-16-2024 Patient encounter procedure 10/16/2024 1:40 PM EDT Office Visit [facility] [address] [place] [address] [address] [place] [address] Ynes Rodriguez, FIRE REGULATOR - NURSING AIDE [address] [facility] [address] [facility] [place] [address] Wellness [facility] Comment on above: Wellness Start: 08-03-2024 Depression Screen Depression Screen [facility] Start: 06-04-2024 End: 06-04-2024 Patient encounter procedure 06/04/2024 11:45 AM EST Office Visit [facility] [address] [place] [address] [address] [place] [address] Jose Cruz Raza MD [address] [place] [address] wt management [facility] Comment on above: wt management Start: 05-22-2024 End: 05-22-2024 Patient encounter procedure 05/22/2024 11:00 AM EDT Office Visit [facility] [address] [place] [address] [address] [place] [address] Ynes Rodriguez, FIRE REGULATOR - NURSING AIDE [address] [facility] [facility] [address] [place], [place] [id number] LFT + HLD f/u(RS 10/17/23 appt) [facility] Comment on above: LFT + HLD f/u(RS 09/22 01/14 appt) Start: 03-24-2024 COVID-19 Vaccine ( season) COVID-19 Vaccine ( season) [facility] Start: 03-24-2024 COVID-19 Vaccine ( season) COVID-19 Vaccine ( season) [facility] Start: 03-24-2024 Influenza vaccination Influenza Vacc ine (#1) [facility] Start: 02-22-2024 Influenza vaccination Flu vaccine (# 1) [facility] Start: 03-03-2023 Screening for malign ant neoplasm of cervix [facility] Start: 11-09-2022 Depression Screen Depression Screen [facility] Start: 07-11-2022 End: 07-11-2022 Patient encounter procedure 07/11/2022 Office Visit Primary Care Ynes Rodriguez, FIRE REGULATOR - NURSING AIDE [address] [place] [address] [facility] Start: 05-19-2022 End: 05-19-2022 Patient encounter procedure 05/19/2022 Office Visit Obstetrics and Gynecology Berto Live, FIRE REGULATOR - CNM [address] [place] [address] [facility] OBSTETR[facility]OLOG[facility] Start: 03-18-2022 End: 03-18-2022 Patient encounter procedure 03/18/2022 Office Visit Family Medicine Ynes Rodriguez, FIRE REGULATOR - NURSING AIDE [address] [facility] [facility] [address] [place] [address] [facility] FAMILY MEDIC[facility] Start: 03-12-2022 Hepatitis C screening Hepatitis C sc [facility] Comment on above: Postponed from 09/09 (Patient Refused) Start: 02-21-2022 Influenza vaccination Flu vaccine (# 1) [facility] Start: 11-19-2021 Screening for Chlamy carlton trachomatis [facility] Start: 09-24-2021 Influenza vaccination Flu vacc ine (Season Ended) [facility] Work Phone: Comment on above: Postponed from 03/24 (Patient Refused) Start: 08-17-2021 Depression Monitoring Depression Mon rhiannon [facility] Start: 06-30-2021 COVID-19 Vaccine (3 - Booster for Pfizer series) COVID-19 Vaccine (3 - Booster for Pfizer series) [facility] Start: 06-19-2021 DTaP/Tdap/Td vaccine (7 - Td or Tdap) DTaP/Tdap/Td vaccine (7 - Td or Tdap) [facility] Start: 06-19-2021 DTaP/Tdap/Td vaccine (7 - Td) DTaP/Tdap/Td vaccine (7 - Td) [facility] [place] Start: 03-24-2021 Influenza vaccination Flu vaccine (# 1) [facility] Start: 03-03-2021 Screening for Chlamy carlton trachomatis Chlamydia screen [place], [place] Start: 02-23-2021 COVID-19 Vaccine (3 - Booster for Pfizer series) COVID-19 Vaccine (3 - Booster for Pfizer series) [facility] Start: 02-09-2021 End: 02-09-2021 Patient encounter procedure 02/09/2021 Office Visit Family Medicine Ynes Rodriguez, FIRE REGULATOR - NURSING AIDE [address] [facility] [address] [place] [address] [phone] [facility] Start: 11-30-2020 End: 11-30-2020 Patient encounter procedure 11/30/2020 Office Visit Urology Chris Moe MD [address] [facility], [address] [place] [address] [phone] [facility] Start: 05-28-2020 End: 05-28-2020 Telemedicine 05/28/2020 Telemedicine Family Medicine Ynes Rodriguez, FIRE REGULATOR - NURSING AIDE [address] [place] [address] [phone] [facility] Start: 03-24-2020 Influenza vaccination Flu vaccine (# 1) [place], [place] Start: 02-22-2020 Screening for Chlamy carlton trachomatis Chlamydia screen [place], [place] Start: 2019 Screening for malign ant neoplasm of cervix Cervical cancer screen [place], [place] Start: 2016 Hepatitis C screening Hepatitis C sc katiesigrid [facility] Start: 2014 COVID-19 Vaccine (1) COVID-19 Vaccin e (1) [facility] Phone: Start: 2013 HIV screening HIV screen [place], [place] Start: 1998 Hepatitis C screening Hepatitis C sc katien [facility] Phone: Bacteria identified in Urine by Culture Urine culture Microbiology Routine Missed menses Ordered: 11/14/2024 [facility] Comment on above: Ordered: 11/14/2024 Bacteria identified in Urine by Culture Urine culture Microbiology Routine UTI symptoms Ordered: 04/03/2025 [facility] Comment on above: Ordered: 04/03/2025 End: 03-03-2020 C.trachomatis N.gonorrhoeae DNA, Thin Prep C.trachomatis N.gonorrhoeae DNA, Thin Prep Microbiology Routine Encounter for annual routine gynecological examination 1 Occurrences starting 03/03/2020 until 03/03/2020 [facility] [place] Comment on above: 1 Occurrences starti ng 03/03/2020 until 03/03/2020 C.trachomatis N.gonorrhoeae DNA, Thin Prep C.trachomatis N.gonorrhoeae DNA, Thin Prep Microbiology Routine Encounter for annual routine gynecological examination 03/03/2020 5:08 PM EDT [place], [place] CBC W Auto Different ial panel - Blood CBC and differential Lab Routine Missed menses , unspecified gestational age Ordered: 11/14/2024 [facility] Comment on above: Ordered: 11/14/2024 CHLAMYDIA TRACHOMATI S (GENITO/STI) CHLAMYDIA TRACHOMATIS (GENITO/STI) Lab Routine STD exposure Ordered: 01/15/2025 [facility] Comment on above: Ordered: 01/15/2025 Cytology Cervical or vaginal smear or scraping study Pap Smear Pathology and Cytology Routine Well woman exam with routine gynecological exam Ordered: 07/15/2024 [facility] Work Phone: Comment on above: Ordered: 07/15/2024 End: 03-03-2020 Cytopathology procedure, preparation of smear, genital source PAP SMEAR Lab Routine Screening for cervical cancer 1 Occurrences starting 03/03/2020 until 03/03/2020 [facility] [place] Comment on above: 1 Occurrences starti ng 03/03/2020 until 03/03/2020 Hemoglobin A1c/Hemoglobin.total in Blood Hemoglobin A1c Lab Routine Missed menses , unspecified gestational age Ordered: 11/14/2024 [facility] Comment on above: Ordered: 11/14/2024 Hepatitis B virus surface Ag [Presence] in Serum or Plasma by Immunoassay Hepatitis B surface antigen Lab Routine Missed menses , unspecified gestational age Ordered: 11/14/2024 [facility] Comment on above: Ordered: 11/14/2024 Hepatitis C virus Ab [Presence] in Serum or Plasma by Immunoassay Hepatitis C antibody Lab Routine Missed menses , unspecified gestational age Ordered: 11/14/2024 [facility] Comment on above: Ordered: 11/14/2024 HIV-1/HIV-2 antigen/antibody combination immunoassay HIV-1 and HIV-2 antibodies Lab Routine Missed menses , unspecified gestational age Ordered: 11/14/2024 [facility] Comment on above: Ordered: 11/14/2024 Neisseria gonorrhoea e DNA [Presence] in Unspecified specimen by ANISA with probe detection Neisseria gonorrhea DNA probe, direct Lab Routine STD exposure Ordered: 01/15/2025 [facility] Comment on above: Ordered: 01/15/2025 Reagin Ab [Presence] in Serum by RPR RPR Lab Routine Missed menses , unspecified gestational age Ordered: 11/14/2024 [facility] Comment on above: Ordered: 11/14/2024 Rubella antibody, IgG Rubella an tibody, IgG Lab Routine Missed menses , unspecified gestational age Ordered: 11/14/2024 [facility] Comment on above: Ordered: 11/14/2024 SURESWAB(R) ADVANCED VAGINITIS PLUS, TMA SURESWAB(R) ADVANCED VAGINITIS PLUS, TMA Pathology and Cytology Routine Vaginal discharge Ordered: 01/15/2025 [facility] Work Phone: Comment on above: Ordered: 01/15/2025 US Pelvis transvaginal US OB tra nsvaginal Imaging Routine Missed menses 11/14/2024 2:38 PM EDT [facility] End: 12-20-2024 Us uterus 14 wk transabdl 07/24 gestat [facility] [employer] [facility] Work Phone: Comment on above: 1 Occurrences starti ng 12/20/2024 until 12/20/2024 Immunizations Immunization Date Immunization Notes Care Provider Fa hilton 12-29-2020 COVID-19, Pfizer Pur ple top, DILUTE for use, 12+ yrs, 30mcg/0.3mL dose Ynes Rodriguez FIRE REGULATOR - NURSING AIDE Work Phone: [employer] Phone: 12-07-2020 COVID-19, Pfizer Pur ple top, DILUTE for use, 12+ yrs, 30mcg/0.3mL dose Ynes Rodriguez FIRE REGULATOR - [facility] Work Phone: [facility] 09-20-2017 human papilloma viru s vaccine, quadrivalent [facility] [place] 05-01-2017 human papilloma viru s vaccine, quadrivalent [facility] 02-24-2017 human papilloma viru s vaccine, quadrivalent [facility] 03-11-2016 meningococcal polysaccharide (groups A, C, Y and W-135) diphtheria toxoid conjugate vaccine (MCV4P) [facility], [place] 2014 meningococcal ACWY vaccine, unspecified formulation [facility] 08-19-2011 Hepatitis A Ped/Adol (Vaqta) [facility] 08-19-2011 hepatitis A vaccine, pediatric/adolescent dosage, 2 dose schedule Ynes Rodriguez FIRE REGULATOR - [facility] Work Phone: [facility] Work Phone: 06-19-2011 tetanus toxoid, redu saundra diphtheria toxoid, and acellular pertussis vaccine, adsorbed [facility] 02-09-2011 Hepatitis A Ped/Adol (Vaqta) [facility] 02-09-2011 hepatitis A vaccine, pediatric/adolescent dosage, 2 dose schedule Ynes Rodriguez FIRE REGULATOR [facility] Work Phone: [facility] Work Phone: 02-09-2011 varicella virus vaccine [facility], [place] 01-12-2011 meningococcal polysaccharide (groups A, C, Y and W-135) diphtheria toxoid conjugate vaccine (MCV4P) [facility] 11-20-2003 diphtheria, tetanus toxoids and acellular pertussis vaccine [facility] 11-20-2003 measles, mumps and rubella virus vaccine [facility] 11-20-2003 poliovirus vaccine, inactivated [facility] 03-13-2000 diphtheria, tetanus toxoids and acellular pertussis vaccine [facility] 03-13-2000 haemophilus influenz ae type b vaccine, PRP-T conjugate [facility] 03-13-2000 poliovirus vaccine, inactivated [facility] 12-22-1999 measles, mumps and rubella virus vaccine [facility] 12-22-1999 varicella virus vaccine [facility] 06-09-1999 hepatitis B vaccine, pediatric or pediatric/adolescent dosage [facility] 03-12-1999 diphtheria, tetanus toxoids and acellular pertussis vaccine [facility] 03-12-1999 haemophilus influenz ae type b vaccine, PRP-T conjugate [facility] 01-18-1999 diphtheria, tetanus toxoids and acellular pertussis vaccine [facility] 01-18-1999 haemophilus influenz ae type b vaccine, PRP-T conjugate [facility] 01-18-1999 poliovirus vaccine, inactivated [facility] 1998 haemophilus influenz ae type b vaccine, PRP-T conjugate [facility] 1998 poliovirus vaccine, inactivated [facility] 1998 diphtheria, tetanus toxoids and acellular pertussis vaccine [facility] 1998 hepatitis B vaccine, pediatric or pediatric/adolescent dosage [facility] 1998 hepatitis B vaccine, pediatric or pediatric/adolescent dosage [facility] [place] Payers Date Payer Category Payer Unknown [facility] [id number] 2022-Present [address] [place] [address] Indemnity [id number] 2022 Private Health Insurance [employer] [id number]. [id number] 1998 Unknown [id number] 2.16.840.1.084370.3.579.2. 900 1998 Unknown [id number] 2.16.840.1.132155.3.579.2. 900 1998 Unknown [id number] 2.16.840.1.124752.3.579.2. 900 1998 Unknown [id number] 2.16.840.1.067145.3.579.2. 900 1998 Unknown [id number] 2.16.840.1.762856.3.579.2. 593 1998 Unknown [id number] 2.16.840.1.598209.3.579.2. 593 1998 Unknown [id number] 2.16.840.1.948206.3.579.2. 593 1998 Unknown [id number] 2.16.840.1.696520.3.579.2. 593 1998 Unknown [id number] 2.16.840.1.233327.3.579.2. 593 1998 Unknown [id number] 2.16.840.1.802211.3.579.2. 593 1998 Unknown [id number] 2.16.840.1.313785.3.579.2. 593 1998 Unknown [id number] 2.16.840.1.282183.3.579.2. 593 1998 Unknown [id number] 2.16.840.1.690854.3.579.2. 593 1998 Unknown [id number] 2.16.840.1.210753.3.579.2. 593 1998 Unknown [id number] 2.16.840.1.095962.3.579.2. 593 1998 Unknown [id number] 2.16.840.1.993557.3.579.2. 593 1998 Unknown [id number] 2.16.840.1.649209.3.579.2. 593 1998 Unknown [id number] 2.16.840.1.322339.3.579.2. 593 1998 Unknown [id number] 2.16.840.1.197579.3.579.2. 173 1998 Unknown [id number] 2.16.840.1.511662.3.579.2. 173 1998 Unknown [id number] 2.16.840.1.959629.3.579.2. 173 1998 Unknown [id number] 2.16.840.1.774007.3.579.2. 173 1998 Unknown [id number] 2.16.840.1.878944.3.579.2. 173 1998 Unknown [id number] 2.16.840.1.883408.3.579.2. 1259 1998 Unknown [id number] 2.16.840.1.295733.3.579.2. 1259 1998 Unknown [id number] 2.16.840.1.743365.3.579.2. 1259 1998 Unknown [id number] 2.16.840.1.291154.3.579.2. 9 1998 Unknown [id number] 2.16.840.1.438722.3.579.2. 9 1998 Unknown [id number] 2.16.840.1.691075.3.579.2. 9 1998 Unknown [id number] 2.16.840.1.043097.3.579.2. 9 1998 Unknown [id number] 2.16.840.1.130544.3.579.2. 9 1998 Unknown [id number] 2.16.840.1.089381.3.579.2. 1258 1998 Unknown [id number] 2.16.840.1.077610.3.579.2. 9 1998 Unknown [id number] 2.16.840.1.739895.3.579.2. 9 1998 Unknown [id number] 2.16.840.1.726679.3.579.2. 1259 1959 Self-pay 1959 Unknown [id number] 1.2.840.054675.1.13.239.2. 7.3.222799.315 1959 Unknown [id number] 1959 Unknown [id number] Unknown [id number] 2.16.840.1.380456.3.579.2. 593 Social History Date Type Detail Facility Start: 03-03-2020 End: 12-31-2022 Tobacco smoking status NHIS Never smoker [place] Start: 03-03-2020 End: 12-31-2022 Tobacco use and exposure Never used [place] Start: 03-03-2020 End: 05-12-2021 Alcohol intake Current drinker of alcohol (finding) [place] Start: 06-19-2017 Alcohol Comment social [facility] [place] Start: 1998 Sex Assigned At Not on file [place] Start: 05-01-2020 End: 03-08-2022 History SDOH Financial 5 [place] Start: 05-01-2020 End: 03-08-2022 History SDOH Food Worry 1 [place], [place] Start: 05-01-2020 History SDOH Transpo rt Med 2 [place] Exposure to SARS-CoV -2 (event) Not sure [facility] Start: 05-01-2024 End: 11-12-2024 Alcoholic beverage intake [facility] Start: 05-01-2024 End: 11-14-2024 History of [facility] function [facility] Start: 05-01-2024 End: 11-14-2024 Tobacco use panel [facility] How hard is it for y ou to pay for the very basics like food, housing, medical care, and heating Not hard at all [facility] (I/We) worried wherosemary er (my/our) food would run out before (I/we) got money to buy more. Never true [facility] Start: 1998 [facility] at [facility] Start: 05-20-2024 Gender identity Identifies as female gender (finding) [facility] Start: 07-05-2023 End: 04-30-2025 Alcoholic beverage intake Lifetime non-drinker (finding) [facility] Start: 09-30-2024 [facility] Has the electric, ga s, oil, or water company threatened to shut off services in your home in past 12Mo [employer] [facility] Start: 09-02-2012 Sex Female (finding) [facility] [employer] [facility] Medical Equipment Procedure Code Equipment Code Equipment Origin al Text Equipment Identifier Dates Use as instructed [id number] Start: 01-15-2025 End: 01-15-2026 Inject 1 each un tino the skin Daily [id number] Start: 04-07-2025 End: 07-16-2025 Goals Date Patient Goal Desired Activity /State Personal health goal Clinical Notes 03-20-2023 to 04-30-2025 Ceasar Li NP - 04/30/2025 3:00 PM JOSEPH Stevens - 04/14/2025 3:20 PM JOSEPH Stevens - 04/03/2025 3:30 PM Skyler Foy DO - 03/12/2025 3:50 PM JOSEPH Stevens - 02/11/2025 2:10 PM EDT Note Date & Type Note Facility 04-30-2025 History of Present illness Narrative Reason for [...] Frequent UTI 11/30/2020 23 weeks gestation of ([facility]) 02/26/2025 Elevated blood sugar level 02/26/2025 Resolved Ambulatory Problems Diagnosis Date Noted Missed period 01/13/2023 Past Medical History: Diagnosis Date GDM (gestational diabetes mellitus) ([facility]) HISTORY PAST MEDICAL HISTORY SOCIAL HISTORY Past Medical History: Diagnosis Date GDM (gestational diabetes mellitus) ([facility]) Social History Tobacco Use Smoking status: [...] nursing note reviewed. Exam conducted with a extractions technologist present. Vitals: Estimated body mass index is 36.7 kg/m as calculated from the following: Height as of 01/30/23: 5' 6 . Weight as of this encounter: 227 lb 6.4 oz. BP: 110/70 Patient's last menstrual period was 09/16/2024. ASSESSMENT & PLAN ICD-10-CM 1. Third trimester ([facility]) Z34.93 2. 32 weeks gestation of ([facility]) Z3A.32 POCT urinalysis dipstick manually resulted [...] week for routine OB appointment. Documented by Ceasar Li NP on behalf of: Ceasar Li NP documented in this encounter [facility] 04-14-2025 History of Present illness Narrative Reason [...] Frequent UTI 11/30/2020 23 weeks gestation of ([facility]) 02/26/2025 Elevated blood sugar level 02/26/2025 Resolved Ambulatory Problems Diagnosis Date Noted Missed period 01/13/2023 Past Medical History: Diagnosis Date GDM (gestational diabetes mellitus) ([facility]) HISTORY PAST MEDICAL HISTORY SOCIAL HISTORY Past Medical History: Diagnosis Date GDM (gestational diabetes mellitus) ([facility]) Social History Tobacco Use Smoking status: [...] ASSESSMENT & PLAN ICD-10-CM 1. Third trimester ([facility]) Z34.93 POCT urinalysis dipstick manually resulted 2. 30 weeks gestation of ([facility]) Z3A.30 Return OB: Patient presents today for [...] of: JOSEPH Bowie documented in this encounter [facility] 04-03-2025 History of Present illness Narrative [...] Frequent UTI 11/30/2020 23 weeks gestation of ([facility]) 02/26/2025 Elevated blood sugar level 02/26/2025 Resolved Ambulatory Problems Diagnosis Date Noted Missed period 01/13/2023 Past Medical History: Diagnosis Date GDM (gestational diabetes mellitus) ([facility]) HISTORY PAST MEDICAL HISTORY SOCIAL HISTORY Past Medical History: Diagnosis Date GDM (gestational diabetes mellitus) ([facility]) Social History Tobacco Use Smoking status: [...] PLAN ICD-10-CM 1. 28 weeks gestation of ([facility]) Z3A.28 POCT urinalysis dipstick manually resulted US OB follow up transabdominal approach US biophysical profile w non stress test 2. Third trimester ([facility]) Z34.93 POCT urinalysis dipstick manually resulted US OB follow up transabdominal approach US biophysical profile w non stress test 3. Dizziness R42 CBC and differential CBC and differential 4. Gestational diabetes mellitus (GDM), antepartum, gestational diabetes method of control unspecified ([facility]) O24.419 US OB follow up transabdominal approach [...] of: JOSEPH Bowie documented in this encounter [facility] 03-12-2025 History of Present illness [...] Frequent UTI 11/30/2020 23 weeks gestation of ([facility]) 02/26/2025 Elevated blood sugar level 02/26/2025 Resolved Ambulatory Problems Diagnosis Date Noted Missed period 01/13/2023 Past Medical History: Diagnosis Date GDM (gestational diabetes mellitus) ([facility]) No family history on file. Social History [...] nursing note reviewed. Exam conducted with a extractions technologist present. Vitals: Estimated body mass index is 36.12 kg/m as calculated from the following: Height as of 01/30/23: 5' 6 . Weight as of this encounter: 223 lb 12.8 oz. BP: 100/70 Patient's last menstrual period was 09/16/2024. Assessment/Plan Encounter Diagnosis: ICD-10-CM 1. 25 weeks gestation of ([facility] [facility]) Z3A.25 POCT urinalysis dipstick manually resulted 2. Second trimester ([facility]) Z34.92 POCT urinalysis dipstick manually resulted 3. [...] Mukul Foy DO documented in this encounter [facility] 02-26-2025 History of Present illness [...] Frequent UTI 11/30/2020 23 weeks gestation of ([facility]) 02/26/2025 Elevated blood sugar level 02/26/2025 Resolved Ambulatory Problems Diagnosis Date Noted Missed period 01/13/2023 Past Medical History: Diagnosis Date GDM (gestational diabetes mellitus) ([facility]) HISTORY PAST MEDICAL HISTORY SOCIAL HISTORY Past Medical History: Diagnosis Date GDM (gestational diabetes mellitus) ([facility]) Social History Tobacco Use Smoking status: [...] nursing note reviewed. Exam conducted with a extractions technologist present. Vitals: Estimated body mass index is 35.96 kg/m as calculated from the following: Height as of 01/30/23: 5' 6 . Weight as of this encounter: 222 lb 12.8 oz. BP: 110/70 Patient's last menstrual period was 09/16/2024. ASSESSMENT & PLAN ICD-10-CM 1. 23 weeks gestation of ([facility]) Z3A.23 POCT urinalysis dipstick manually resulted pantoprazole [...] of FSBS and doing well. Documented by Ceasar Li NP on behalf of: Mukul Foy DO documented in this encounter [facility] 02-11-2025 History of Present illness [...] History: Diagnosis Date GDM (gestational diabetes mellitus) ([facility]) HISTORY PAST MEDICAL HISTORY SOCIAL HISTORY Past Medical History: Diagnosis Date GDM (gestational diabetes mellitus) ([facility]) Social History Tobacco Use Smoking status: [...] ASSESSMENT & PLAN ICD-10-CM 1. Second trimester ([facility]) Z34.92 metFORMIN XR (Glucophage-XR) 500 MG 24 hr tablet POCT urinalysis dipstick manually resulted 2. 20 weeks gestation of ([facility]) Z3A.20 metFORMIN XR (Glucophage-XR) 500 MG [...] Mukul Foy DO documented in this encounter [facility] 01-15-2025 History of Present illness [...] History: Diagnosis Date GDM (gestational diabetes mellitus) ([facility]) HISTORY PAST MEDICAL HISTORY SOCIAL HISTORY Past Medical History: Diagnosis Date GDM (gestational diabetes mellitus) ([facility]) Social History Tobacco Use Smoking status: [...] nursing note reviewed. Exam conducted with a extractions technologist present. Vitals: Estimated body mass index is 34.19 kg/m as calculated from the following: Height as of 01/30/23: 5' 6 . Weight as of this encounter: 211 lb 12.8 oz. BP: 118/72 Patient's last menstrual period was 09/16/2024. ASSESSMENT & PLAN ICD-10-CM 1. Second trimester ([facility]) Z34.92 Alpha fetoprotein, maternal Alpha fetoprotein, maternal 2. 17 weeks gestation of ([facility]) Z3A.17 Alpha fetoprotein, maternal Alpha fetoprotein, maternal 3. Vaginal discharge N89.8 SURESWAB(R) ADVANCED VAGINITIS PLUS, TMA 4. STD exposure Z20.2 CHLAMYDIA TRACHOMATIS (GENITO/STI) Neisseria gonorrhea DNA probe, direct 5. Screening, , for anatomic survey ([facility]) Z36.89 US OB 14+ weeks anatomy scan 6. Gastroesophageal reflux in ([facility]) O99.619 omeprazole (PriLOSEC) [address] capsule K21.9 7. Gestational diabetes mellitus (GDM), antepartum, gestational diabetes method of control unspecified ([facility]) O24.419 glucose blood test strip Return OB/Annual [...] by Criselda Aguirre LPN on behalf of: virgil barton, pac documented in this encounter [facility] 12-18-2024 History of Present illness [...] by JOSEPH Bowie documented in this encounter [facility] 11-14-2024 History of Present illness [...] lb 8 oz F CS-LTranv OLIVIA 1 2021 Complete Obstetric Comments Last pap smear [...] Nurse Note: Patient uncertain of doing the [place] screening. Pt was advised both labs and [...] undercooked meat, and stay away from [facility]. Patient has also been advised to [...] Elizabeth Ware MA documented in this encounter [facility] 07-15-2024 History of Present illness [...] nursing note reviewed. Exam conducted with a extractions technologist present. Vitals: Estimated body mass index is [...] Mukul Foy DO documented in this encounter [facility] 08-06-2023 Note HNO ID: [id number] Author: LANG CARREON APRN.NURSING AIDE Service: ? Author Type: Nurse Practitioner Type: Progress Notes Filed: 08/06/2023 10:44 Note Text: Telemedicine Visit - Distance Health Virtual Visit Note I have communicated my name and active licensure. The patient's identity and physical location were verified at the time of this visit. Either the patient or their legal correspondence representative has been informed of the risks and benefits of -- and alternatives to -- treatment through a remote evaluation and consents to proceed with the evaluation remotely. Patient seen on virtual platforms, [employer]. Location of patient: [place] History of Presenting Illness: Vinny Downey 22 [...] - Sleep with head elevated due to joxe-mgejq-[id number] increases cough - Continue Flonase - Flonase: [...] care - All questions answered Lang Carreon APRN.[facility] 07-11-2023 Note [facility] Consult Note Reason [...] recent labs Rajendra Sheffield MD Cardiac Electrophysiology [facility] 07-11-2023 Note Patient here for [facility] low up event monitor. Echo was not performed that was ordered at last apt in Feb 2023 by Israel Champion CNP. Does not notice palpitations as often. Denies chest pain, SOB, and lightheadedness. Review of Systems Cardiovascular: Positive for palpitations (less often). All other systems reviewed and are negative. [facility] 03-30-2023 Note -developed anemia po stpartum s/p -hgb 10.8 per recent labs [facility] 03-30-2023 Note - could be related t o being , anemia -monitor and echo to rule out cardiac concern [facility] 03-30-2023 Note - [facility] - 30-day event monit or - we will hold off on starting medication until follow-up [facility] 03-20-2023 Note New patient here [...] All other systems reviewed and are negative. [facility] 03-20-2023 Note [facility] Consult [...] are attached to (more content not included)... [facility] Evaluation note Diagnosis Frequent UTI Urinary tract infection, site not specified documented in this encounter [facility] Phone: evaluation note* Diagnosis Amenorrhea Absence of menstruation documented in this encounter [facility] Phone: evaluation note* Diagnosis Elevated liver enzymes Nonspecific elevation of levels of transaminase or lactic acid dehydrogenase (LDH) Mixed hyperlipidemia documented in this encounter [facility] note* Diagnosis Well woman exam with routine gynecological exam Routine gynecological examination documented in this encounter [facility] note* Diagnosis Missed menses 8 weeks gestation of , unspecified gestational age Encounter for supervision of normal first in first trimester History of miscarriage Personal history of other genital system and obstetric disorders documented in this encounter [facility] note* Diagnosis Second trimester state, incidental 12 weeks gestation of Subchorionic hematoma in first trimester, single or unspecified fetus Diabetes mellitus screening Screening for diabetes mellitus documented in this encounter [facility] note* Diagnosis Subchorionic hematoma, antepartum, first trimester, not applicable or unspecified fetus documented in this encounter [facility] Diagnosis Second trimester ([facility]) state, incidental 17 weeks gestation of ([facility]) Vaginal discharge Leukorrhea, not specified as infective STD exposure Screening, , for anatomic survey ([facility]) Encounter for anatomic survey Gastroesophageal reflux in ([facility]) Gestational diabetes mellitus (GDM), antepartum, gestational diabetes method of control unspecified ([facility]) documented in this encounter [facility] note* Diagnosis Second trimester ([facility]HS-HCC) state, incidental 20 weeks gestation of ([facility]) documented in this encounter [facility] Healthcare[facility] note* Diagnosis 23 weeks gestation of ([facility]) Elevated blood sugar level Other abnormal glucose Gastroesophageal reflux disease without esophagitis Esophageal reflux documented in this encounter [facility]Evaluation note* Diagnosis 25 weeks gestation of ([facility]) Second trimester ([facility]HS-HCC) state, incidental Gastroesophageal reflux disease without esophagitis Esophageal reflux documented in this encounter [facility] HealthcareEvaluation note* Diagnosis 28 weeks gestation of ([facility]) Third trimester ([facility] state, incidental Dizziness Dizziness and giddiness Gestational diabetes mellitus (GDM), antepartum, gestational diabetes method of control unspecified ([facility]) History of miscarriage Personal history of other genital system and obstetric disorders Anemia, unspecified type UTI symptoms documented in this encounter [facility]Evaluation note* Diagnosis Third trimester ([facility]HS-HCC) state, incidental 30 weeks gestation of ([facility]) documented in this encounter [facility] note* Diagnosis Third trimester ([facility]HS-HCC) state, incidental 32 weeks gestation of ([facility]) documented in this encounter [facility] HealthcareReason for visit Narrative* Imaging (Routine) - Open Specialty Diagnoses / Procedures Referred By Ever winslow Referred To Contact Radiology Diagnoses Subchorionic hematoma, antepartum, first trimester, not applicable or unspecified fetus Procedures US OB LESS THAN 14 WEEKS SINGLE OR FIRST GESTATION W DOPPLER US OB TRANSVAGINAL Mukul Foy MD [address] [place] [address] Phone: tel: Referral ID Status Reason Start Date Expiration Date Visits Re quested Visits Authorized [id number] Open 12/19/2024 12/19/2025 1 1 [facility] Assessments Diagnosis Screening for cervical cancer Screening for malignant neoplasm of the cervix Encounter for annual routine gynecological examination Diagnosis Encounter for screening for HIV Other fatigue Wellness examination Advance Directives No Advanced Directives Records FoundDocuments on File Type Date Recorded Patient Business Team Leader Expl anation Advance Directives and Living Will Power of Polymerization Oven Operator Documents on File Type Date Recorded Patient Business Team Leader Expl anation ACP-Advance Directive ACP-Power of Polymerization Oven Operator Documents on File Type Date Recorded Patient Business Team Leader Expl anation ACP-Advance Directive ACP-Power of Polymerization Oven Operator Summary Purpose Family History No Family History Records FoundNo Family History Records FoundNo Family History Records FoundNo Family History Records FoundNo Family History Records FoundNo Family History Records FoundNo Family History Records Found Reason for Referral Status Reason Specialty Diagnoses / Procedures Referre d By Contact Referred To Contact Closed Radiology Diagnoses Frequent UTI Procedures US RENAL COMPLETE Lorena Ricks, FIRE REGULATOR - NURSING AIDE [address] [place] [address] Additional Source Comments INFORMATION SOURCE (unrecogn ized section and content) DATE CREATED AUTHOR 10/14/2020 [facility] DATE CREATED AUTHOR AUTHOR'S ORGANIZ ATION 09/26/[address] [facility] DATE CREATED AUTHOR AUTHOR'S ORGANIZ ATION 12/30/2022 [facility] DATE CREATED AUTHOR AUTHOR'S ORGANIZ ATION 08/03/2023 [facility] DATE CREATED AUTHOR AUTHOR'S ORGANIZ ATION 08/07/2023 [facility] DATE CREATED AUTHOR AUTHOR'S ORGANIZ ATION 01/09/2025 [facility] DATE CREATED AUTHOR AUTHOR'S ORGANIZ ATION 05/03/2025 [facility] dical Specialists EPIC Reason for Visit (unrecogniz ed section and content) Status Reason Specialty Diagnoses / Procedures Referre d By Contact Referred To Contact Closed Radiology Diagnoses Frequent UTI Procedures US RENAL COMPLETE Lorena Ricks, FIRE REGULATOR - NURSING AIDE [address] [place] [address] Reason Comments Gynecologic Exam Reason Comments Amenorrhea Reason Comments Routine Visit Reason Comments Routine Visit STI Screening Care Teams (unrecognized sec tion and content) Professor Of Medicine Relationship Specialty Start Date End Date Ynes Rodriguez, FIRE REGULATOR - NURSING AIDE [address] [place] [address] PCP - General Family Nurse Practitioner 05/04/20 Professor Of Medicine Relationship Specialty Start Date End Date Ynes Rodriguez, FIRE REGULATOR - NURSING AIDE [address] [place] [address] PCP - General Family Nurse Practitioner 05/04/20 Professor Of Medicine Relationship Specialty Start Date End Date Ynes Rodriguez, FIRE REGULATOR - NURSING AIDE [address] [place] [address] PCP - General Family Nurse Practitioner 08/02/22 Professor Of Medicine Relationship Specialty Start Date End Date Ynes Rodriguez, FIRE REGULATOR - NURSING AIDE [address] [place] [address] PCP - General Family Nurse Practitioner 08/02/22 Professor Of Medicine Relationship Specialty Start Date End Date Ynes Rodriguez, FIRE REGULATOR - NURSING AIDE [address] [place] [address] PCP - General Family Nurse Practitioner 08/02/22 [...] BE BASED ON THE PRIMARY CLINICAL RECORDS. [employer] provides no warranty or guarantee of the accuracy or completeness of information in this document.
--- OUTSIDE RECORDS SUMMARY | 2025-05-03 12:02 | XMS_ITS | Encounter Summary ---
Author Organization [facility] Address [address] [place] [address] Care Team Providers Care Poker Supervisor Name Role Phone Unavailable Primary Care Provider Unavailabl e Encounter Details Date Type Department Care Team ([facility] Contact Info) Description 01/11/2023 Abstract DIANE SANTO [facility] [place] [phone] Mukul Foy DO [facility] [place] [address] Social History Tobacco Use Types Packs/Day Years Used Date Smoking Tobacco: Never Smokeless Tobacco: Never Alcohol Use Standard Drinks/Week Comments Never 0 (1 standard drink = 0.6 oz pur e alcohol) Comments Yes Sex and Gender Information Value Date Recorded Sex Assigned at Not on file Legal Sex Female 11:47 PM EDT Gender Identity Not on file Sexual Orientation Not on file documented as of this encounter Plan of Treatment Upcoming Encounters Date Type Department Care Team ([facility] Contact Info) Description 05/14/2025 2:50 PM EDT Routine DIANE SANTO [address] [place] [phone] Mukul Foy DO [facility] [place] [address] 07/28/2025 4:00 PM [place] [address] Mukul Foy, [address] [place] [address] documented as of this encounter Visit Diagnoses Not on filedocumented in this encounter
--- OUTSIDE RECORDS SUMMARY | 2025-05-03 12:02 | XMS_ITS | Encounter Summary ---
Author Organization [facility] Address [address] [place] [address] Care Team Providers Care Car Knocker Name Role Phone Unavailable Primary Care Provider Unavailabl e Encounter Details Date Type Department Care Team ([facility] Contact Info) Description 03/21/2023 Abstract NOMRenzo SANTO [address] [facility] [place] [phone] Carola France LPN [address] [facility] [place] [facility] Social History Tobacco Use Types Packs/Day Years Used Date Smoking Tobacco: Never Smokeless Tobacco: Never Alcohol Use Standard Drinks/Week Comments Never 0 (1 standard drink = 0.6 oz pur e alcohol) Comments No Sex and Gender Information Value Date Recorded Sex Assigned at Not on file Legal Sex Female 11:47 PM EDT Gender Identity Not on file Sexual Orientation Not on file documented as of this encounter Plan of Treatment Upcoming Encounters Date Type Department Care Team (Late Contact Info) Description 05/14/2025 2:50 PM EDT Routine DIANE SANTO [address] [facility] [place] [phone] Mukul Foy DO [address] [facility] [place] [address] 07/28/2025 4:00 PM EST Office Visit DIANE SANTO [address] [facility] [place] [address] Mukul Foy, [address] [place] [address] documented as of this encounter Visit Diagnoses Not on filedocumented in this encounter
--- OUTSIDE RECORDS SUMMARY | 2025-05-03 12:02 | XMS_ITS | Encounter Summary ---
Author Organization [facility] Address [address] [place] [address] Care Team Providers Care Special Projects Coordinator Name Role Phone Unavailable Primary Care Provider Unavailabl e Encounter Details Date Type Department Care Team (Late Contact Info) Description 01/08/2025 Abstract NOMRenzo SANTO [facility] [place] [phone] Mukul Foy DO [facility] [place], [facility] Social History Tobacco Use Types Packs/Day [...] EDT Routine DIANE SANTO [address] [place] [phone] Mukul Foy DO [address] [place], [place] [phone] 07/28/2025 4:00 PM EST Office Visit [place] [facility] [address] [facility] [place] [address] Mukul Foy DO [address] [facility] [place] [address] documented as of this encounter Goals Goal Patient Goal Type Associated Problems Recent Progress Patient-Stated? Author Reminders Care Plan OB Reminders No Open Scheduling, Background documented as of this encounter Visit Diagnoses Not on filedocumented in this encounter Additional Health Concerns Active Problems Noted Date Diagnosed Date OB Reminders 11/29/2024 documented as of this encounter
--- OUTSIDE RECORDS SUMMARY | 2025-05-03 12:02 | XMS_ITS | Encounter Summary ---
Author Organization [facility] Address [address] [place] [address] Care Team Providers Care Lean Six Sigma Senior Specialist Name Role Phone Unavailable Primary Care Provider Unavailabl e Encounter Details Date Type Department Care Team (Late Contact Info) Description 12/23/2024 Abstract NOMRenzo SANTO [facility] [place] [phone] Mukul Foy DO [facility] [place], [facility]11 Social History Tobacco Use Types Packs/Day [...] EDT Routine DIANE SANTO [address] [place] [phone] Mukul Foy DO [address] [place], [place] [phone] 07/28/2025 4:00 PM EST Office Visit [facility] [facility] [address] [facility] [place] [address] Mukul Foy DO [address] [facility] [place] [address] documented as of this encounter Goals Goal Patient Goal Type Associated Problems Recent Progress Patient-Stated? Author Reminders Care Plan OB Reminders No Open Scheduling, Background documented as of this encounter Visit Diagnoses Not on filedocumented in this encounter Additional Health Concerns Active Problems Noted Date Diagnosed Date OB Reminders 11/29/2024 documented as of this encounter
--- OUTSIDE RECORDS SUMMARY | 2025-05-03 12:02 | XMS_ITS | Encounter Summary ---
Author Organization [facility] Address [address] [place] [address] Care Team Providers Care Shipping And Receiving Supervisor Name Role Phone Unavailable Primary Care Provider Unavailabl e Encounter Details Date Type Department Care Team ([facility] Contact Info) Description 01/26/2023 Abstract NOMRenzo SANTO [address] [place] [address] [place] [phone] Regina Barton PA [address] [facility] [address] [place], [place] [address] Social History Tobacco Use Types Packs/Day Years [...] Upcoming Encounters Date Type Department Care Team ([facility] Contact Info) Description 05/14/2025 2:50 PM EDT Routine NOMRenzo SANTO [address] [facility] [place] [phone] Mukul Foy DO [address] [place], [place] [address] 07/28/2025 4:00 PM EST Office Visit DIANE SANTO [address] [place], [place] [address] [phone] Mukul Foy, [address] [place] [address] documented as of this encounter Visit Diagnoses Not on filedocumented in this encounter
--- OUTSIDE RECORDS SUMMARY | 2025-05-03 12:02 | XMS_ITS | Encounter Summary ---
Author Organization [facility] Address [address] [place] [address] Care Team Providers Care Slot Ambassador Name Role Phone Unavailable Primary Care Provider Unavailabl e Encounter Details Date Type Department Care Team ([facility] Contact Info) Description 01/19/2023 Abstract DIANE SANTO [facility] [place] [phone] Mukul Foy DO [facility] [place] [address] Social History Tobacco Use Types Packs/Day Years [...] Upcoming Encounters Date Type Department Care Team ([facility] Contact Info) Description 05/14/2025 2:50 PM EDT Routine DIANE SANTO [address] [place] [phone] Mukul Foy DO [facility] [place] [address] 07/28/2025 4:00 [place] [address] Mukul Foy, [address] [place] [address] documented as of this encounter Visit Diagnoses Not on filedocumented in this encounter
--- OUTSIDE RECORDS SUMMARY | 2025-05-03 12:02 | XMS_ITS | Encounter Summary ---
Author Organization [facility] Address [address] [place] [address] Care Team Providers Care Child Neurologist Name Role Phone Unavailable Primary Care Provider Unavailabl e Encounter Details Date Type Department Care Team (Late Contact Info) Description 03/03/2025 Abstract NOMRenzo SANTO [facility] [place] [phone] Mukul Foy DO [facility] [place], [facility]11 Social History Tobacco Use Types Packs/Day Years [...] PM EDT Routine DIANE SANTO [address] [place] [phone] Mukul Foy DO [address] [place], [place] [phone] 07/28/2025 4:00 PM EST Office Visit [facility] [place] [facility] [address] [facility] [place] [address] Mukul Foy DO [address] [facility] [place] [address] documented as of this encounter Goals Goal Patient Goal Type Associated Problems Recent Progress Patient-Stated? Author Reminders Care Plan OB Reminders No Open Scheduling, Background documented as of this encounter Visit Diagnoses Not on filedocumented in this encounter Additional Health Concerns Active Problems Noted Date Diagnosed Date OB Reminders 11/29/2024 documented as of this encounter
--- OUTSIDE RECORDS SUMMARY | 2025-05-03 12:02 | XMS_ITS | Encounter Summary ---
Author Organization [facility] Address [address] [place] [address] Care Team Providers Care Cable Tv Installer Name Role Phone Unavailable Primary Care Provider Unavailabl e Encounter Details Date Type Department Care Team (Late Contact Info) Description 12/23/2024 Abstract NOMRenzo SANTO [facility] [place] [phone] Mukul Foy DO [facility] [place], [facility]11 Social History Tobacco Use Types Packs/Day Years [...] EDT Routine DIANE SANTO [address] [place] [phone] Mukul Foy DO [address] [place], [place] [phone] 07/28/2025 4:00 PM EST Office Visit DIANE [place] OBGYN [address] [facility] [place] [address] Mukul Foy DO [address] [facility] [place] [address] documented as of this encounter Goals Goal Patient Goal Type Associated Problems Recent Progress Patient-Stated? Author Reminders Care Plan OB Reminders No Open Scheduling, Background documented as of this encounter Visit Diagnoses Not on filedocumented in this encounter Additional Health Concerns Active Problems Noted Date Diagnosed Date OB Reminders 11/29/2024 documented as of this encounter
--- OUTSIDE RECORDS SUMMARY | 2025-05-03 12:02 | XMS_ITS | Encounter Summary ---
Author Organization [facility] Address [address] [place] [address] Care Team Providers Care Fitting Room Supervisor Name Role Phone Unavailable Primary Care Provider Unavailabl e Encounter Details Date Type Department Care Team ([facility] Contact Info) Description 01/31/2023 Abstract DIANE SANTO [facility] [place] [phone] Mukul Foy DO [facility] [place] [address] Social History Tobacco Use Types Packs/Day Years [...] Upcoming Encounters Date Type Department Care Team ([facility] Contact Info) Description 05/14/2025 2:50 PM EDT Routine DIANE SANTO [address] [place] [phone] Mukul Foy DO [facility] [place] [address] 07/28/2025 4:00 [place] [address] Mukul Foy, [address] [place] [address] documented as of this encounter Visit Diagnoses Not on filedocumented in this encounter
--- OUTSIDE RECORDS SUMMARY | 2025-05-03 12:02 | XMS_ITS | Encounter Summary ---
Author Organization [facility] Address [address] [place] [address] Care Team Providers Care Patch Sander Name Role Phone Unavailable Primary Care Provider Unavailabl e Encounter Details Date Type Department Care Team ([facility] Contact Info) Description 01/11/2023 Abstract DIANE SANTO [facility] [place] [phone] Mukul Foy DO [facility] [place] [address] Social History Tobacco Use Types Packs/Day Years [...] Upcoming Encounters Date Type Department Care Team ([facility] Contact Info) Description 05/14/2025 2:50 PM EDT Routine DIANE SANTO [address] [place] [phone] Muklu Foy DO [facility] [place] [address] 07/28/2025 4:00 [place] [address] Mukul Foy, [address] [place] [address] documented as of this encounter Visit Diagnoses Not on filedocumented in this encounter
--- OUTSIDE RECORDS SUMMARY | 2025-05-03 12:02 | XMS_ITS | Clinical Summary ---
Author Organization [facility] Address [address] [place] [address] Care Team Providers Care Retail Equipment Associate Name Role Phone Ynes Mistry Dalila GOLF BALL COVER TREATER Primary Care Provider Allergies No known active allergies Medications Pro Fe 180 mg iron capsule Take by mouth in the morning. 01/27/2023 Active sertraline (Zoloft) 50 mg tablet 50 mg in the morning. 03/06/2023 Active norethindrone (Micronor) 0.35 mg tablet Take 1 tablet by mouth in the morning. 03/10/2023 Active Active Problems Problem Noted Date Diagnosed Date Iron deficiency anemia due to chronic blood loss 03/30/2023 Assessment & Plan (03/30/2023 1:04 PM EDT): -developed anemia s/p -hgb 10.8 per recent labs Palpitations 03/20/2023 Assessment & Plan (03/30/2023 1:01 PM EDT): - 30-day event monitor - we will hold off on starting medication until follow-up Abnormal glucose level 01/13/2023 Heartburn 01/13/2023 03/20/2023 Indigestion 01/13/2023 03/20/2023 Dyspareunia in female 11/30/2020 03/20/2023 Frequent UTI 11/30/2020 03/20/2023 Anxiety 06/29/2020 03/20/2023 Assessment & Plan (03/30/2023 1:01 PM EDT): - takes sertraline 50 mg daily Seasonal allergic rhinitis 06/29/202003/20 Insomnia due to other mental disorder 05/02/2020 03/20/2023 Other fatigue 05/02/2020 03/20/2023 Assessment & Plan (03/30/2023 1:02 PM EDT): - could be related to being , anemia -monitor and echo to rule out cardiac concern Encounters Date Type Department Care Team Description 02/25/2025 Telephone [facility] [address] [place] [address] Cailin Ryan MA from Last 3 Months Family History Medical History Relation Name Comments Hyperlipidemia Father Supraventricular tachycardia Father Anemia Mother Diabetes Sister Relation Name Status Comments Father Mother Sister Social History Tobacco Use Types Packs/Day Years Used Date Smoking Tobacco: Never Smokeless Tobacco: Never Tobacco Cessation:Counseling Given: Not Answered Alcohol Use Standard Drinks/Week Comments Not Currently 0 (1 standard drink = 0.6 oz pur e alcohol) [place] Safety & Environment Answer Date Rec orded Fear of Current or Ex-Partner Not on file Emotionally Abused Not on file 09/15/2023 Physically Abused Not on file 09/15/2023 Sexually Abused Not on file 09/15/2023 Physically or Sexually Abused Not on file Comments Unknown Sex and Gender Information Value Date Recorded Sex Assigned at Not on file Legal Sex Female 11:34 AM EDT Gender Identity Not on file Sexual Orientation Not on file Last Filed Vital Signs Vital Sign Reading Time Taken Comments Blood Pressure 108/76 07/11/2023 4:27 PM EST Pulse 73 07/11/2023 4:27 PM EST Temperature - - Respiratory Rate - - Oxygen Saturation 96% 07/11/2023 4:27 PM EST Inhaled Oxygen Concentration - - Weight 95.7 kg (211 lb) 07/11/2023 4:27 PM EST Height 167.6 cm (5' 6 ) 07/11/2023 4:27 PM EST Body Mass Index 34.06 07/11/2023 4:27 PM EST Plan of Treatment Health Maintenance Due Date Last Done Comments Depression Screening 2010 Adult Tetanus 2020 06/19/2011 COVID-19 Vaccine ( season) 2025 12/29/2020, 12/07/2020 Influenza Vaccine (#1) 2025 Pap Smear 04/18/2025 04/18/2022 Zoster Vaccines (1 of 2) 2048 02/09/2011, 11/23 HIB Vaccines Completed 03/13/2000, 02/22, 01/18/1999, Additional history exists IPV Vaccines Completed 11/20/2003, 02/22, 01/18/1999, Additional history exists Varicella Vaccines Completed 02/09/2011, 12/22/1999 Meningococcal Vaccine Completed 03/11/2016 , 2014, 01/12/2011 HPV Vaccines Completed 09/20/2017, 03/2017, 02/24/2017 Meningococcal B Vaccine Aged Out No l onger eligible based on patient's age to complete this topic Pneumococcal Vaccine: Pediatrics (0 to 5 Years) and At-Risk Patients (6 to 64 Years) Aged Out No longer eligible based on patient's age to complete this topic Rotavirus Vaccines Aged Out No longer eligible based on patient's age to complete this topic Insurance [employer] Member Subscriber Plan / Payer (Ef fective for All Dates) Name:Portia Downey Relation to Subscriber:Self Name:Portia Downey Payer ID:[id number] Group ID:Not on file Type:Not on file Address: [address] [place] [phone] Care Teams Retail Equipment Associate Relationship Specialty Start Date End Date Ynes Mistry, GOLF BALL COVER TREATER [address] [place] [address] PCP - General 03/20/23
--- OUTSIDE RECORDS SUMMARY | 2025-05-03 12:02 | XMS_ITS | Encounter Summary ---
Author Organization [facility] Address [address] [place] [address] Care Team Providers Care Manager Home Improvement Name Role Phone Unavailable Primary Care Provider Unavailabl e Encounter Details Date Type Department Care Team ([facility] Contact Info) Description 12/12/2022 Clinisync Result Encounter [facility] EXT Leon Brown MD [address] [facility] [place] [id number] Social History Tobacco Use Types Packs/Day Years Used Date Smoking Tobacco: Never Assessed Comments Unknown Sex and Gender Information Value Date Recorded Sex Assigned at Not on file Legal Sex Female 11:47 PM EDT Gender Identity Not on file Sexual Orientation Not on file documented as of this encounter Plan of Treatment Upcoming Encounters Date Type Department Care Team ([facility] Contact Info) Description 05/14/2025 2:50 PM EDT Routine DIANE SANTO [address] [place] [address] Mukul Foy, DO [address] [place] [place] [address] 07/28/2025 4:00 PM EST Office Visit DIANE SANTO [address] [place] [address] Mukul Foy, DO [address] [place], [place] [phone] documented as of this encounter Procedures Procedure Name Priority Date/Time Associated Diagnosis Comments US PREG PLACENTA 12/12/2022 12:5 2 PM EDT documented in this encounter Results * US PREG PLACENTA (12/12/2022 12:52 PM EDT) Anatomical Region Laterality Modality Other 12/12/2022 12:5 2 PM EDT Narrative 12/12/2022 2:56 PM EDT EXAMINATION: US PREG PLACENTA HISTORY: Left flank [...] by: LUIS ALFREDO GRANT Date: 2022-12-12 14:56 Procedure Note Radiology, Radiologist, MD - 12/12/2022 EXAMINATION: US PREG PLACENTA HISTORY: Left flank pain ; fell down steps COMPARISON: Ultrasound growth 12/10/2022 FINDINGS: PLACENTA: Anterior, grade 1, without previa. 2.9 x 2.0 x 1.5 cm hypoechoicarea favoring a venous gonzales. CERVIX LENGTH: HEART RATE: 118 bpm OTHER: Nuchal cord. Cephalic presentation GA: 33 weeks 4 days JOCELIN: 01/26/2023 IMPRESSION: 1. Single live intrauterine . 2. Anterior placenta without previa. No subchorionic hematoma orabruption. 3. Nuchal cord. Electronically authenticated by: LUIS ALFREDO GRANT Date: 2022-12-12 14:56 us Leon Andrew MD [facility] Final Resul t documented in this encounter Visit Diagnoses Not on filedocumented in this encounter
--- OUTSIDE RECORDS SUMMARY | 2025-05-03 12:02 | XMS_ITS | Encounter Summary ---
Author Organization [facility] Address [address] [place] [address] Care Team Providers Care Claim Adjuster Name Role Phone Unavailable Primary Care Provider Unavailabl e Encounter Details Date Type Department Care Team ([facility] Contact Info) Description 01/06/2023 Abstract DIANE SANTO [facility] [place] [phone] Mukul Foy DO [facility] [place] [address] Social History Tobacco Use Types Packs/Day Years [...] Upcoming Encounters Date Type Department Care Team ([facility] Contact Info) Description 05/14/2025 2:50 PM EDT Routine DIANE SANTO [address] [place] [phone] Mukul Foy DO [facility] [place] [address] 07/28/2025 4:00 [place] [address] Mukul Foy, [address] [place] [address] documented as of this encounter Visit Diagnoses Not on filedocumented in this encounter
--- OUTSIDE RECORDS SUMMARY | 2025-05-03 12:02 | XMS_ITS | Encounter Summary ---
Author Organization [facility] Address [address] [place] [address] Care Team Providers Care Casting Machine Operator Automatic Name Role Phone Unavailable Primary Care Provider Unavailabl e Encounter Details Date Type Department Care Team ([facility] Contact Info) Description 02/02/2023 Abstract DIANE SANTO [facility] [place] [phone] Mukul Foy DO [facility] [place] [address] Social History Tobacco Use Types Packs/Day Years [...] Upcoming Encounters Date Type Department Care Team ([facility] Contact Info) Description 05/14/2025 2:50 PM EDT Routine DIANE SANTO [address] [place] [phone] Mukul Foy DO [facility] [place] [address] 07/28/2025 4:00 [place] [address] Mukul Foy, [address] [place] [address] documented as of this encounter Visit Diagnoses Not on filedocumented in this encounter
--- OUTSIDE RECORDS SUMMARY | 2025-05-03 12:02 | XMS_ITS | Encounter Summary ---
Author Organization [facility] Address [address] [place] [address] Care Team Providers Care Pantry Steward/Stewardess Name Role Phone Unavailable Primary Care Provider Unavailabl e Encounter Details Date Type Department Care Team (Late Contact Info) Description 12/17/2022 Clinisync Result Encounter [facility] External Department Unsolicited Mukul Foy, DO [address] [place], [facility]11 Social History Tobacco Use Types Packs/Day Years Used Date Smoking Tobacco: Never Assessed Comments Yes Sex and Gender Information Value Date Recorded Sex Assigned at Not on file Legal Sex Female 11:47 PM EDT Gender Identity Not on file Sexual Orientation Not on file documented as of this encounter Plan of Treatment Upcoming Encounters Date Type Department Care Team (Late Contact Info) Description 05/14/2025 2:50 PM EDT Routine DIANE SANTO [facility] [place] [phone] Mukul Foy, DO [address] [place], [place] [address] 07/28/2025 4:00 PM EST Office Visit DIANE SANTO [address] [place] [address] Mukul Foy, DO [address] [place], [facility]11 documented as of this encounter Procedures Procedure Name Priority Date/Time Associated Diagnosis Comments US PREG BIOPHY W NON STRESS 12/17/2022 10:53 AM EDT documented in this encounter Results * US PREG BIOPHY W NON STRESS (12/17/2022 10:53 AM EDT) Anatomical Region Laterality Modality Other 12/17/2022 10:5 3 AM EDT Narrative 12/20/2022 7:03 AM EDT EXAMINATION: US PREG BIOPHY W NON STRESS [...] authenticated by: YELENA CARLOS Date: 2022-12-20 07:03 Procedure Note Radiology, Radiologist, MD - 12/20/2022 EXAMINATION: US PREG BIOPHY W NON STRESS [...] authenticated by: YELENA CARLOS Date: 2022-12-20 07:03 us Mukul Law DO [facility] Final Result documented in this encounter Visit Diagnoses Not on filedocumented in this encounter
--- OUTSIDE RECORDS SUMMARY | 2025-05-03 12:02 | XMS_ITS | Encounter Summary ---
Author Organization [facility] Address [address] [place] [address] Care Team Providers Care Check Processing Clerk Name Role Phone Unavailable Primary Care Provider Unavailabl e Encounter Details Date Type Department Care Team (Late Contact Info) Description 04/15/2025 Abstract NOMRenzo SANTO [facility] [place] [address] Mukul Foy DO [facility] [place], [facility] Social History Tobacco Use Types Packs/Day [...] Routine DIANE SANTO [address] [place] [phone] Mukul Foy DO [address] [place], [place] [phone] 07/28/2025 4:00 PM EST Office Visit DIANE [place] OBGYN [address] [facility] [place] [address] Mukul Foy DO [address] [facility] [place] [address] documented as of this encounter Goals Goal Patient Goal Type Associated Problems Recent Progress Patient-Stated? Author Reminders Care Plan OB Reminders No Open Scheduling, Background documented as of this encounter Visit Diagnoses Not on filedocumented in this encounter Additional Health Concerns Active Problems Noted Date Diagnosed Date OB Reminders 11/29/2024 documented as of this encounter
--- OUTSIDE RECORDS SUMMARY | 2025-05-03 12:02 | XMS_ITS | Encounter Summary ---
Author Organization [facility] Address [address] [place] [address] Care Team Providers Care Potash Flaker Name Role Phone Unavailable Primary Care Provider Unavailabl e Encounter Details Date Type Department Care Team ([facility] Contact Info) Description 10/25/2023 Abstract NOMRenzo SANTO [address] [place] [phone] Carola France LPN 102 [facility] [place] [facility] Social History Tobacco Use Types Packs/Day Years Used Date Smoking Tobacco: Never Smokeless Tobacco: Never Alcohol Use Standard Drinks/Week Comments Never 0 (1 standard drink = 0.6 oz pur e alcohol) Comments Unknown Sex and Gender Information Value Date Recorded Sex Assigned at Not on file Legal Sex Female 11:47 PM EDT Gender Identity Not on file Sexual Orientation Not on file documented as of this encounter Plan of Treatment Upcoming Encounters Date Type Department Care Team (Late Contact Info) Description 05/14/2025 2:50 PM EDT Routine DIANE SANTO [address] [place] [phone] Mukul Foy DO [address] [facility] [place] [address] 07/28/2025 4:00 PM EST Office Visit DIANE SANTO [address] [place], [place] [address] [place] [address] Mukul Foy, [address] [place] [address] documented as of this encounter Visit Diagnoses Not on filedocumented in this encounter
--- OUTSIDE RECORDS SUMMARY | 2025-05-03 12:02 | XMS_ITS | Encounter Summary ---
Author Organization [facility] Address [address] [place] [address] Care Team Providers Care Log Rafter Name Role Phone Unavailable Primary Care Provider Unavailabl e Encounter Details Date Type Department Care Team (Latest Contact Info) Description 04/27/2025 Travel Social History Tobacco Use Types Packs/Day Years [...] Upcoming Encounters Date Type Department Care Team ( Contact Info) Description 05/14/2025 2:50 PM EDT Routine DIANE SANTO [address] [place] [address] Mukul Foy, DO [address] [place], [facility]11 07/28/2025 4:00 PM EST Office Visit DIANE SANTO [address] [place] [address] Mukul Foy, DO [address] [place] [address] documented as of this encounter Goals Goal Patient Goal Type Associated Problems Recent Progress Patient-Stated? Author Reminders Care Plan OB Reminders No Open Scheduling, Background documented as of this encounter Visit Diagnoses Not on filedocumented in this encounter Additional Health Concerns Active Problems Noted Date Diagnosed Date OB Reminders 11/29/2024 documented as of this encounter
--- OUTSIDE RECORDS SUMMARY | 2025-05-03 12:02 | XMS_ITS | Encounter Summary ---
Author Organization [facility] Address [address] [place] [address] Care Team Providers Care Bobbin Handler Name Role Phone Unavailable Primary Care Provider Unavailabl e Encounter Details Date Type Department Care Team (Late Contact Info) Description 03/13/2025 Abstract NOMRenzo SANTO [facility] [place] [address] Mukul Foy DO [facility] [place], [facility]11 Social History Tobacco Use Types Packs/Day [...] EDT Routine DIANE SANTO [address] [place] [address] Mukul Foy DO [address] [place], [place] [phone] 07/28/2025 4:00 PM EST Office Visit DIANE [place] OBGYN [address] [facility] [place] [address] Mukul Foy DO [address] [facility] [place] [address] documented as of this encounter Goals Goal Patient Goal Type Associated Problems Recent Progress Patient-Stated? Author Reminders Care Plan OB Reminders No Open Scheduling, Background documented as of this encounter Visit Diagnoses Not on filedocumented in this encounter Additional Health Concerns Active Problems Noted Date Diagnosed Date OB Reminders 11/29/2024 documented as of this encounter
--- OUTSIDE RECORDS SUMMARY | 2025-05-03 12:02 | XMS_ITS | Encounter Summary ---
Author Organization [facility] Address [address] [place] [address] Care Team Providers Care Service Coordinator Name Role Phone Unavailable Primary Care Provider Unavailabl e Encounter Details Date Type Department Care Team ([facility] Contact Info) Description 01/11/2023 Abstract DIANE SANTO [facility] [place] [phone] Mukul Foy DO [facility] [place] [address] Social History Tobacco Use Types Packs/Day Years [...] Upcoming Encounters Date Type Department Care Team ([facility] Contact Info) Description 05/14/2025 2:50 PM EDT Routine DIANE SANTO [address] [place] [phone] Mukul Foy DO [facility] [place] [address] 07/28/2025 4:00 [place] [address] Mukul Foy, [address] [place] [place] [address] documented as of this encounter Visit Diagnoses Not on filedocumented in this encounter
--- OUTSIDE RECORDS SUMMARY | 2025-05-03 12:02 | XMS_ITS | Encounter Summary ---
Author Organization [facility] Address [address] [place] [address] Care Team Providers Care Psych Sales Specialist Name Role Phone Unavailable Primary Care Provider Unavailabl e Encounter Details Date Type Department Care Team ([facility] Contact Info) Description 02/07/2023 Abstract DIANE SANTO [facility] [place] [phone] Mukul Foy DO [facility] [place] [address] Social History Tobacco Use Types Packs/Day Years [...] Upcoming Encounters Date Type Department Care Team ([facility] Contact Info) Description 05/14/2025 2:50 PM EDT Routine DIANE SANTO [address] [place] [phone] Mukul Foy DO [facility] [place] [address] 07/28/2025 4:00 [place] [address] Mukul Foy, [address] [place] [address] documented as of this encounter Visit Diagnoses Not on filedocumented in this encounter
--- OUTSIDE RECORDS SUMMARY | 2025-05-03 12:02 | XMS_ITS | Encounter Summary ---
Author Organization [facility] Address [address] [place] [address] Care Team Providers Care Computer Equipment Repairer Name Role Phone Unavailable Primary Care Provider Unavailabl e Encounter Details Date Type Department Care Team ([facility] Contact Info) Description 07/31/2024 Orders Only NOMRenzo SANTO [address] [facility] [address] [place], [phone] Suyapa Hazel LPN [address] [place] [address] Social History Tobacco Use Types Packs/Day Years [...] Upcoming Encounters Date Type Department Care Team ([facility] Contact Info) Description 05/14/2025 2:50 PM EDT Routine NOMRenzo SANTO [address] [employer] [phone] Mukul Foy DO [address] [facility] [address] [place], [place] [phone] 07/28/2025 4:00 PM EST Office Visit NOMRenzo SANTO [address] [facility] [place] [address] Mukul Foy, [address] [place] [address] [place] [address] documented as of this encounter Procedures Procedure Name Priority Date/Time Associated Diagnosis Comments PAP SMEAR Routine 07/15/2024 12:00 AM EST documented in this encounter Results * Pap Smear (07/15/2024 12:00 AM EST) Swab Cervical swab / Unknown us Mukul Foy DO LAB CYTOLOGY ORDERABLES Final Re sult EXTERNAL LAB documented in this encounter Visit Diagnoses Not on filedocumented in this encounter
--- OUTSIDE RECORDS SUMMARY | 2025-05-03 12:02 | XMS_ITS | Encounter Summary ---
Author Organization [facility] Address [address] [place] [address] Care Team Providers Care Customs Manager Name Role Phone Unavailable Primary Care Provider Unavailabl e Encounter Details Date Type Department Care Team (Late Contact Info) Description 12/23/2022 Orders Only NOMRenzo SANTO [address] [place] [address] [place] [address] Provider, MD Yuval [address] [place] [id number] Social History Tobacco Use Types Packs/Day Years [...] 2:50 PM EDT Routine DIANE SANTO [address] [place] [address] Mukul Foy, DO [address] [place] [address] 07/28/2025 4:00 PM EST Office Visit DIANE SANTO [address] [place] [address] Mukul Foy, DO [address] [place] [address] documented as of this encounter Procedures Procedure Name Priority Date/Time Associated Diagnosis Comments AST AND ALT Routine 12/14/2022 12:04 PM EDT documented in this encounter Results * AST AND ALT (12/14/2022 12:04 PM EDT) us Historical Provider LAB BLOOD ORDERABLES Mariam l Result documented in this encounter Visit Diagnoses Not on filedocumented in this encounter
--- OUTSIDE RECORDS SUMMARY | 2025-05-03 12:02 | XMS_ITS | Encounter Summary ---
Author Organization [facility] Address [address] [place] [address] Care Team Providers Care Support Services Rep Name Role Phone Unavailable Primary Care Provider Unavailabl e Encounter Details Date Type Department Care Team (Late Contact Info) Description 02/28/2025 Abstract NOMRenzo SANTO [facility] [place] [phone] Mukul Foy DO [facility] [place], [place] [id number] Social History Tobacco Use Types Packs/Day Years [...] EDT Routine DIANE SANTO [address] [place] [phone] Mukul Foy DO [address] [place], [place] [id number] 07/28/2025 4:00 PM EST Office Visit DIANE [place] O[facility] [address] [facility] [place] [address] Mukul Foy DO [address] [facility] [place] [address] documented as of this encounter Goals Goal Patient Goal Type Associated Problems Recent Progress Patient-Stated? Author Reminders Care Plan OB Reminders No Open Scheduling, Background documented as of this encounter Visit Diagnoses Not on filedocumented in this encounter Additional Health Concerns Active Problems Noted Date Diagnosed Date OB Reminders 11/29/2024 documented as of this encounter
--- OUTSIDE RECORDS SUMMARY | 2025-05-03 12:02 | XMS_ITS | Encounter Summary ---
Author Organization [facility] Address [address] [place] [address] Care Team Providers Care Local Company Tanker Driver Name Role Phone Unavailable Primary Care Provider Unavailabl e Encounter Details Date Type Department Care Team ([facility] Contact Info) Description 12/06/2024 Abstract NOMRenzo SANTO [address] [place] [address] Sirisha Watt MA Social History Tobacco Use Types Packs/Day Years [...] Upcoming Encounters Date Type Department Care Team ([facility] Contact Info) Description 05/14/2025 2:50 PM EDT Routine DIANE SANTO [address] [place] [address] Mukul Foy DO [facility] [place], [facility] 07/28/2025 4:00 PM EST Office Visit DIANE SANTO [facility] [place] [address] Mukul Foy, DO [address] [facility] [place] [address] documented as of this encounter Goals Goal Patient Goal Type Associated Problems Recent Progress Patient-Stated? Author Reminders Care Plan OB Reminders No Open Scheduling, Background documented as of this encounter Visit Diagnoses Not on filedocumented in this encounter Additional Health Concerns Active Problems Noted Date Diagnosed Date OB Reminders 11/29/2024 documented as of this encounter
--- OUTSIDE RECORDS SUMMARY | 2025-05-03 12:02 | XMS_ITS | Clinical Summary ---
Author Organization [facility] Address [address] [place], [place] [id number] Care Team Providers Care Vacuum Bottle Assembler Name Role Phone Unavailable Primary Care Provider Unavailabl e Allergies No known active allergies Medications benzonatate (TESSALON PERLE) 100 mg capsule Take 1-2 capsules every 8 hours as needed. 60 capsule 08/06/2023 Active Active Problems No known active problems Social History Tobacco Use Types Packs/Day Years Used Date Smoking Tobacco: Never Assessed Comments Unknown Sex and Gender Information Value Date Recorded Sex Assigned at Not on file Legal Sex Female 10:20 AM EST Gender Identity Not on file Sexual Orientation Not on file Plan of Treatment Health Maintenance Due Date Last Done Comments Peds To Adult Transition Ini tial Discussion 2010 Peds To Adult Transition Brenda ual Assessment 2012 Anxiety Screening 2016 Depression Screening 2016 HIV Screening 2016 Hepatitis C Screening 2016 Cervical Cancer Screening 2019 DTaP,Tdap,Td Vaccine (7 - Td or Tdap) 06/19/2021 06/19/2011, 11/20/2003, 03/13/2000, Additional history exists Covid-19 Vaccine (2024-2 6 season) 2025 12/29/2020, 12/07/2020 Influenza Vaccine (#1) 2025 Hepatitis B Vaccine Completed 06/09/1999, 1998, 1998 HPV Vaccine Completed 09/20/2017, 10/0 03/2017, 02/24/2017 Insurance [employer] TPA
--- OUTSIDE RECORDS SUMMARY | 2025-05-03 12:02 | XMS_ITS | Encounter Summary ---
Author Organization [facility] Address [address] [place] [address] Care Team Providers Care Supervisor Order Takers Name Role Phone Unavailable Primary Care Provider Unavailabl e Encounter Details Date Type Department Care Team (Late Contact Info) Description 03/17/2023 Abstract NOMRenzo SANTO [address] [place] [phone] Elizabeth Ware [place] [address] [place] [address] Social History Tobacco Use Types Packs/Day Years [...] Upcoming Encounters Date Type Department Care Team ([facility] Contact Info) Description 05/14/2025 2:50 PM EDT Routine DIANE SANTO [address] [place] [phone] Mukul Foy DO [address] [place], [place] [id number] 07/28/2025 4:00 PM EST Office Visit DIANE SANTO [address] [place] [phone] Mukul Foy [address] [place] [address] documented as of this encounter Visit Diagnoses Not on filedocumented in this encounter
--- OUTSIDE RECORDS SUMMARY | 2025-05-03 12:03 | XMS_ITS | Encounter Summary ---
Author Organization [facility] Address [address] [place] [address] Care Team Providers Care Litigation Docket Manager Name Role Phone Unavailable Primary Care Provider Unavailabl e Encounter Details Date Type Department Care Team (Late Contact Info) Description 05/02/2025 Abstract NOMRenzo SANTO [facility] [place] [phone] Mukul Foy DO [facility] [place], [facility] Social History Tobacco Use Types Packs/Day [...] EDT Routine DIANE SANTO [address] [place] [phone] Mukul Foy DO [address] [place], [place] [id number] 07/28/2025 4:00 PM EST Office Visit DIANE [place] OBGYN [address] [facility] [place] [address] Mukul Foy DO [address] [facility] [place] [address] documented as of this encounter Goals Goal Patient Goal Type Associated Problems Recent Progress Patient-Stated? Author Reminders Care Plan OB Reminders No Open Scheduling, Background documented as of this encounter Visit Diagnoses Not on filedocumented in this encounter Additional Health Concerns Active Problems Noted Date Diagnosed Date OB Reminders 11/29/2024 documented as of this encounter
--- OUTSIDE RECORDS SUMMARY | 2025-05-03 12:03 | XMS_ITS | Encounter Summary ---
Author Organization [facility] Address [address] [place] [address] Care Team Providers Care Ship'S Surveyor Name Role Phone Unavailable Primary Care Provider Unavailabl e Encounter Details Date Type Department Care Team (Late Contact Info) Description 04/30/2025 Bamboo flowsheet DIANE SNATO [address] [facility] [place] [address] Tiffany Li, HEAT REGULATOR [address] [facility] [place] [address] Social History Tobacco Use Types Packs/Day Years [...] 2:50 PM EDT Routine DIANE SANTO [address] [facility] [place] [address] Mukul Foy DO [address] [facility] [address] [place], [facility] 07/28/2025 4:00 PM EST Office Visit [facility] [address] [facility] [place] [address] Mukul Foy DO [address] [facility] [place] [address] documented as of this encounter Goals Goal Patient Goal Type Associated Problems Recent Progress Patient-Stated? Author Reminders Care Plan OB Reminders No Open Scheduling, Background documented as of this encounter Visit Diagnoses Not on filedocumented in this encounter Additional Health Concerns Active Problems Noted Date Diagnosed Date OB Reminders 11/29/2024 documented as of this encounter
--- OUTSIDE RECORDS SUMMARY | 2025-05-03 12:03 | XMS_ITS | Clinical Summary ---
Author Organization [facility] Healthcare Address [address] [place] [address] Care Team Providers Care Dialysis Patient Care Technician Name Role Phone Unavailable Primary Care Provider Unavailabl e Allergies No known active allergies Medications sertraline (Zoloft) 50 MG tabletIndications:A nxiety, generalized TAKE 1 TABLET BY MOUTH EVERY DAY IN THE MORNING 30 tablet 3 10/26/19 25 Active glucose blood test stripIndications:Ge stational diabetes mellitus (GDM), antepartum, gestational diabetes method of control unspecified ([facility]) Use as instructed 100 each 12 01/16/20 25 026 Active metFORMIN XR (Glucophage-XR) 500 MG 24 hr tabletIndications:S econd trimester ([facility]),20 weeks gestation of ([facility]) Take 2 tablets (1,000 mg) by mouth in the evening. Take with meals 60 tablet 5 02/12/20 25 026 Active pantoprazole (Protonix) 40 MG EC tabletIndications:2 3 weeks gestation of ([facility]),Elevated blood sugar level,Gastroesophag eal reflux disease without esophagitis Take 1 tablet (40 mg) by mouth in the morning. Take before meals. Do not crush, chew, or split. 30 tablet 11 02/27/20 25 026 Active metoclopramide (Reglan) 10 MG tabletIndications:G astroesophageal reflux disease without esophagitis Take 1 tablet (10 mg) by mouth in the morning and 1 tablet (10 mg) at noon and 1 tablet (10 mg) in the evening. Take before meals. Take 1 tablet by mouth 30 minutes prior to meals 3 times daily as needed for nausea. 90 tablet 3 03/12/20 25 Active insulin pen needle 29G x 8mm miscIndications:Ins ulin controlled gestational diabetes mellitus (GDM) during , antepartum ([facility]) Inject 1 each under the skin Daily 100 each 04/07/20 25 025 Active insulin glargine (Lantus SoloStar) 100 UNIT/ML penIndications:Hype rglycemia Inject 10 Units under the skin at bedtime FILL ACCORDING TO INSURANCE COVERAGE 3 mL 04/07/20 25 025 Active iron polysaccharides (ProFe) 391.3 (180 Fe) MG capsuleIndications: Dizziness Take 1 capsule (391.3 mg) by mouth Daily 30 capsule 6 04/02/20 25 025 Additional Information Patient not taking.Reported on 04/03/2025 cephalexin (Keflex) 500 MG capsuleIndications: UTI symptoms Take 1 capsule (500 mg) by mouth in the morning and 1 capsule (500 mg) in the evening and 1 capsule (500 mg) before bedtime. Do all this for 7 days. 21 capsule 04/03/20 25 025 Active Problems Problem Noted Date Diagnosed Date 23 weeks gestation of ([facility]) 2024 Elevated blood sugar level 02/26/2025 Abnormal glucose level 01/13/2023 Heartburn 01/13/2023 Indigestion 01/13/2023 Dyspareunia in female 11/30/2020 Frequent UTI 11/30/2020 Anxiety 06/29/2020 Insomnia due to other mental disorder 05/02/2020 Other fatigue 05/02/2020 Estimated Date of Delivery Comme nts Yes 06/23/2025 Based on last me nstrual period of 09/16/2024 Resolved Problems Problem Noted Date Diagnosed Date Resolved Date Missed period 01/13/2023 01/13/2023 Encounters Date Type Department Care Team Description 05/02/2025 Abstract [facility] [address] [place] [phone] Britt Foy, 04/30/2025 3:00 PM EDT Routine [facility] [address] [place] [place] [address] Tiffany Li, ASHWIN Third trimester ([facility]); 32 weeks gestation of ([facility]) 04/30/2025 Clinisync Result Encounter [facility] External Department Unsolicited Britt Foy, DO 04/30/2025 Bamboo flowsheet [facility] [address] [place] [address] Tiffany Li NP 04/27/2025 Travel 04/15/2025 Abstract [facility] [address] [place] [address] Britt Foy, DO 04/14/2025 3:20 PM EDT Routine [facility] [place] [address] Regina Cummins PA Third trimester ([facility]); 30 weeks gestation of ([facility]) 04/14/2025 Bamboo flowsheet [facility] [address] [place] [address] Regina Cummins PA 04/14/2025 Travel 04/07/2025 Telephone [facility] [place] [address] Elizabeth Ware MA 04/05/2025 Clinisync Result Encounter [facility] External Department Unsolicited Regina Cummins PA 04/05/2025 Clinisync Result Encounter NOMS External Department Unsolicited Regina Cummins PA 04/03/2025 3:30 PM EDT Routine [facility] [place] [address] Regina Cummins PA 28 weeks gestation of ([facility]); Third trimester ([facility]); Dizziness; Gestational diabetes mellitus (GDM), antepartum, gestational diabetes method of control unspecified ([facility]); History of miscarriage; Anemia, unspecified type; UTI symptoms 04/03/2025 Bamboo flowsheet [facility] [address] [place] [address] Regina Cummins PA 04/02/2025 Telephone [facility] [address] [place] [address] Suyapa Hazel LPN 04/01/2025 Travel 03/13/2025 Abstract [facility] [address] [place] [address] Britt Foy, DO 03/12/2025 3:50 PM EDT Routine [facility] [address] [place] [place] [address] Britt Foy, DO 25 weeks gestation of ([facility]); Second trimester ([facility]); Gastroesophageal reflux disease without esophagitis 03/12/2025 Bamboo flowsheet [facility] [address] [place] [place] [address] Britt Foy, DO 03/03/2025 Abstract [facility] [address] [place] [place] [address] Britt Foy, DO 02/28/2025 Abstract [facility] [address] [place] [place] [address] Britt oFy, DO 02/26/2025 3:30 PM EDT Routine [facility] [address] [place] [address] Britt Foy, DO 23 weeks gestation of ([facility]); Elevated blood sugar level; Gastroesophageal reflux disease without esophagitis 02/26/2025 Bamboo flowsheet [facility] [address] [place] [address] Britt Foy DO 02/19/2025 Travel 02/11/2025 2:10 PM EDT Routine DIANE SANTO [facility] [place] [address] Britt Foy DO Second trimester ([facility]); 20 weeks gestation of ([facility]) 02/11/2025 1:00 PM EDT Ancillary Procedure DIANE SANTO [facility] [place] [phone] Screening, , for anatomic survey ([facility]) 02/04/2025 Travel from Last 3 Months Family History Relation Name Status Comments Daughter Alive Father Alive Mother Alive Sister Alive Social History Tobacco Use Types Packs/Day Years Used Date Smoking Tobacco: Never Smokeless Tobacco: Never Tobacco Cessation:Counseling Given: Not Answered Alcohol Use Standard Drinks/Week Comments Never 0 [...] 6.4 oz) 04/30/2025 3:11 PM EDT Height 167.6 cm (5' 6 ) 01/30/2023 12:12 PM EDT Body Mass Index 36.7 01/30/2023 12:12 PM EDT Plan of Treatment Upcoming Encounters Date Type Department Care Team (Late st Contact Info) Description 05/14/2025 2:50 PM EDT Routine DIANE SANTO [facility] [place] [phone] Britt Foy DO [facility] [place], [place] [phone] 07/28/2025 4:00 PM EST Office Visit [facility] [address] [address] Britt Foy, DO [address] [place] [address] Health Maintenance Due Date Last Done Comments Influenza Vaccine (#1) 2025 Goals Goal Patient Goal Type Associated Problems Recent Progress Patient-Stated? Author Reminders Care Plan OB Reminders No Open Scheduling, Background Procedures Procedure Name Priority Date/Time Associated Diagnosis Comments US OB BPP W NON-STRESS 04/30/2025 10:59 PM EDT POCT URINALYSIS DIPSTICK Routine 04/30/2025 3:19 PM EDT 32 weeks gestation of ([facility]) POCT URINALYSIS DIPSTICK Routine 04/14/2025 3:54 PM EDT Third trimester ([facility]) US OB GROWTH 04/05/2025 12:08 PM EDT ALL CBC WITH AUTO DIFF Routine 04/05/2025 10:33 AM EDT URINARY TRACT INFECTION (HTRX) Routine 04/03/2025 3:53 PM EDT POCT URINALYSIS DIPSTICK Routine 04/03/2025 3:51 PM EDT 28 weeks gestation of ([facility]) Third trimester ([facility]) POCT URINALYSIS DIPSTICK Routine 03/12/2025 4:14 PM EDT 25 weeks gestation of ([facility]) Second trimester ([facility]) POCT URINALYSIS DIPSTICK Routine 02/26/2025 4:03 PM EDT 23 weeks gestation of ([facility]) Elevated blood sugar level POCT URINALYSIS DIPSTICK Routine 02/11/2025 2:13 PM EDT Second trimester ([facility]) 20 weeks gestation of ([facility]) US OB 14+ WEEKS ANATOMY SCAN Routine 02/11/2025 1:59 PM EDT Screening, , for anatomic survey ([facility]) from Last 3 Months Results * US OB BPP W NON-STRESS (04/30/2025 10:59 PM EDT) Anatomical Region Laterality Modality Other 04/30/2025 10:5 9 PM EDT Narrative 04/30/2025 11:02 [place] [address] Ultrasound Report Signed Patient: VINNY HERRERA MR#: [id number] : 2000 Acct:[id number] Age/Sex: 24 / F ADM Date: 04/30/25 Loc: US Attending Dr: Britt Foy D.O. Ordering Physician: Britt Foy D.O. Date of Service: 04/30/25 Procedure(s): US OB BPP w non-stress Accession Number(s): [id number] cc: Britt Foy D.O.; Ynes Mistry [place] [id number] Patient Name: VINNY HERRERA MRN: [facility]:[id number] date: 2000 Sex: F Assigned Patient Location: [facility] Current Patient Location: Accession/Order Number: [id number] Exam Date: 04/30/2025 15:57 Report Date: 04/30/2025 22:59 At the request of: BRITT FOY DO Procedure: US OB BPP w non-stress Ultrasound biophysical profile INDICATION: Gestational diabetes COMPARISON: 04/05/2025 FINDINGS/IMPRESSION:: Fetus cephalic position. 8/8 score biophysical profile. heart rate 145 beats per minutes. JAMAL 12.7 cm. Impression dictated by: Chevy Moreland M.D. 04/30/2025 10:59 PM Dictation Location: [employer] Electronically authenticated by: [id number] Y Date: 04/30/2025 22:59 Dictated By: Chevy Moreland M.D. Signed By: 04/30/252301 DD/ 58 TD/TT: Brake Reliner: Procedure Note Radiology, Radiologist, MD - 04/30/2025 [place] [address] Ultrasound Report Signed Patient: VINNY HERRERA CMR#: [id number] : 2000Acct:[id number] Age/Sex: 24 / FADM Date: 04/30/25 Loc: US Attending Dr: Britt Foy D.O. Ordering Physician: Britt Foy D.O. Date of Service: 04/30/25 Procedure(s): US OB BPP w non-stress Accession Number(s): [id number] cc: Britt Foy D.O.; Ynes Mistry STUFFED CASING TIER The [place] [phone] Patient Name: VINNY HERRERA MRN: [facility]:[id number] date: 2000 Sex: F Assigned Patient Location: [facility] Current Patient Location: Accession/Order Number: [id number] Exam Date: 04/30/2025 15:57 Report Date: 04/30/2025 22:59 At the request of: BRITT FOY DO Procedure: US OB BPP w non-stress Ultrasound biophysical profile INDICATION: Gestational diabetes COMPARISON: 04/05/2025 FINDINGS/IMPRESSION:: Fetus cephalic position. 02/28 score biophysical profile. heart rate 145 beats per minutes. JAMAL 12.7 cm. Impression dictated by: Chevy Moreland M.D. 04/30/2025 10:59 PM Dictation Location: [employer] Electronically authenticated by: [id number] Y Date: 2:59 Dictated By: Chevy Moreland M.D. Signed By:04/30/252301 DD/ 2259 TD/TT: Brake Reliner: Britt Foy DO [facility] Final Result * (ABNORMAL) POCT urinalysis dipstick manually resulted (04/30/2025 3:19 PM EDT) Only the most recent of6 resultswithin the time period is included. Color, UA Yellow Clarity, UA Clear Glucose, UA Negative Negative - 2000(110) ++++ mg/dL Bilirubin, UA Negative Negative - 4(70) +++ mg/dL Ketones, UA Negative Negative - 160(16) ++++ mg/dL Spec Grav, UA 1.010 1 - 1.03 Blood, UA Negative Negative - 50 Yunior/mcL pH, UA 6.5 5 - 9 Protein, UA Negative Negative - 2000(20) ++++ mg/dL Urobilinogen, UA 2.0 0.2 - 12 mg/dL Leukocytes, UA 1+ Negative - 500+++ Trip/mcL Nitrite, UA Negative Negative - Positive Urine 04/30/2025 3:19 PM EDT Tiffany Li NP POINT OF CARE TEST ENTER/EDIT ORDERABLES Final Result * US OB GROWTH (04/05/2025 12:08 PM EDT) Anatomical Region Laterality Modality Other 04/05/2025 12:0 8 PM EDT Narrative 04/05/2025 12:11 [place] [address] Ultrasound Report Signed Patient: VINNY HERRERA MR#: [id number] : 2000 Acct:[id number] Age/Sex: 24 / F ADM Date: 04/05/25 Loc: US Attending Dr: Regina Cummins Ordering Physician: Regina Cummins Date of Service: 04/05/25 Procedure(s): US OB growth Accession Number(s): [id number] cc: Regina Cummins; Physician,Non-Staff MPatricia The [address] [address] Patient Name: VINNY HERRERA MRN: [facility]:[id number] date: 2000 Sex: F Assigned Patient Location: US Current Patient Location: LAB Accession/Order Number: [id number] Exam Date: 04/05/2025 10:00 Report Date: 04/05/2025 12:08 At the request of: REGINA CUMMINS Procedure: US OB growth Limited obstetrical ultrasound [...] Peraza M.D. 04/05/2025 12:08 PM Dictation Location: [facility] Electronically authenticated by: [id number] Y Date: 04/05/2025 12:08 Dictated By: Daryn Peraza D.O. Signed By: 04/05/25 1211 DD/ 1208 TD/TT: Brake Reliner: Procedure Note Radiology, Radiologist, MD - 04/05/2025 [place] [address] Ultrasound Report Signed Patient: VINNY HERRERA CMR#: [id number] : 2000Acct:[id number] Age/Sex: 24 / FADM Date: 04/05/25 Loc: US Attending Dr: Regina Cummins Ordering Physician: Regina Cummins Date of Service: 04/05/25 Procedure(s): US OB growth Accession Number(s): [id number] cc: Regina Cummins; Physician,Non-Staff MPatricia The [address] [address] Patient Name: VINNY HERRERA MRN: [facility]:[id number] date: 2000 Sex: F Assigned Patient Location: US Current Patient Location: LAB Accession/Order Number: [id number] Exam Date: 04/05/2025 10:00 Report Date: 04/05/2025 12:08 At the request of: REGINA CUMMINS Procedure: US OB growth Limited obstetrical ultrasound HISTORY: Gestational diabetes. Assessment for growth. Fetus in breech presentation with longitudinal lie. Placenta anterior location with normal appearance. heart rate 1 36 bpm. Fetalsomatic motion identified. The gestational age by ultrasound is 29 weeks 2 days. Estimated delivery 06/19/2025. Estimated weight 1335 g with weight percentile 51.2%. US/US OB growth IMPRESSION: Single live intrauterine gestation 29 weeks 2 days. Impression dictated by: Daryn Peraza M.D. 04/05/2025 12:08 PM Dictation Location: [facility] Electronically authenticated by: [id number] Y Date: 2:08 Dictated By: Daryn Peraza D.O. Signed By:04/05/25 1211 DD/ 1208 TD/TT: Brake Reliner: Regina RUIZ [facility] Final Result * (ABNORMAL) ALL CBC WITH AUTO DIFF (04/05/2025 10:33 AM EDT) [facility] WBC 11.0 4.0 - 11.0 10 3/uL [facility] TB[facility] RBC 3.47(L) 4.20 - 5.40 10 6/uL [facility] TBH HGB 10.3(L) 12.0 - 16.0 g/dL TBH TBH HCT 30.7(L) 36.0 - 48.0 % [facility]H MCV 88.5 81.0 - 99.0 fL TBH TBH MCH 29.7 26.7 - 34.0 pg TBH TBH MCHC 33.6 29.9 - 35.2 g/dL TBH TBH RDW 12.8 11.0 - 15.0 % TBH TBH PLT 358 150 - 450 10 3/uL TBH TBH MPV 8.7(L) 9.5 - 13.5 fL [facility]H NEUTROPHILS PERCENT AUTO 74.7 43.0 - 75.0 % TBH LYMPHOCYTES PERCENT AUTO 17.1(L) 20.5 - 60.0 % TB[facility] MONOCYTES PERCENT AUTO 6.5 1.7 - 12.0 % TBH TBH EO % 1.1 0.9 - 7.0 % TBH BASOPHILS PERCENT AUTO 0.2 0.2 - 2.0 % TBH IMMATURE GRANULOCYTES PCT AUTO 0.4 0.0 - 0.5 % TBH NEUTROPHILS ABSOLUTE AUTO 8.2(H) 1.4 - 6.5 10 3/uL TBH LYMPHOCYTES ABSOLUTE AUTO 1.9 1.2 - 3.8 10 3/uL TBH MONOCYTES ABSOLUTE AUTO 0.7 0.3 - 0.8 10 3/uL TBH TBH EO # 0.1 0.0 - 0.7 10 3/uL TBH BASOPHILS ABSOLUTE AUTO 0.0 0.0 - 0.1 10 3/uL [facility] IMMATURE GRANULOCYTES ABS AUTO 0.04(H) 0.00 - 0.03 10 3/uL [facility] 04/05/2025 10:3 3 AM EDT 04/05/2025 10:34 AM EDT Narrative [facility] - 04/05/2025 10:47 AM EDT Regina RUIZ [facility] Final [facility] * URINARY TRACT INFECTION (HTRX) (04/03/2025 3:53 PM EDT) ACINETOBACTER BAUMANII 0 19.961 - 24.689 ppm 04/04/2025 7:51 AM EDT [facility] ACINETOBACTER BAUMANII Not Detected 19.961 - 24.689 ppm 04/04/2025 7:51 AM EDT [facility] CITROBACTER FREUNDII 0 23.000 - 32.015 ppm 04/04/2025 7:51 AM EDT [facility] CITROBACTER FREUNDII Not Detected 23.000 - 32.015 ppm 04/04/2025 7:51 AM EDT [facility] ENTEROBACTER AEROGENES, CLOACAE 0 23.000 - 32.290 ppm 04/04/2025 7:51 AM EDT [facility] ENTEROBACTER AEROGENES, CLOACAE Not Detected 23.000 - 32.290 ppm 04/04/2025 7:51 AM EDT [facility] ENTEROCOCCUS FAECALIS, FAECIUM 0 26.000 - 33.043 ppm 04/04/2025 7:51 AM EDT [facility] ENTEROCOCCUS FAECALIS, FAECIUM Not Detected 26.000 - 33.043 ppm 04/04/2025 7:51 AM EDT [facility] ESCHERICHIA COLI 0 23.000 - 28.500 ppm 04/04/2025 7:51 AM EDT [facility] ESCHERICHIA COLI Not Detected 23.000 - 28.500 ppm 04/04/2025 7:51 AM EDT [facility] KLEBSIELLA PNEUMONIAE, OXYTOCA 0 23.000 - 31.865 ppm 04/04/2025 7:51 AM EDT [facility] KLEBSIELLA PNEUMONIAE, OXYTOCA Not Detected 23.000 - 31.865 ppm 04/04/2025 7:51 AM EDT [facility] MORGANELLA MORGANII 0 19.961 - 24.689 ppm 04/04/2025 7:51 AM EDT [facility] MORGANELLA MORGANII Not Detected 19.961 - 24.689 ppm 04/04/2025 7:51 AM EDT [facility] PROTEUS MIRABILIS, VULGARIS 0 23.000 - 28.500 ppm 04/04/2025 7:51 AM EDT [facility] PROTEUS MIRABILIS, VULGARIS Not Detected 23.000 - 28.500 ppm 04/04/2025 7:51 AM EDT [facility] PSEUDOMONAS AERUGINOSA 0 23.000 - 31.801 ppm 04/04/2025 7:51 AM EDT [facility] PSEUDOMONAS AERUGINOSA Not Detected 23.000 - 31.801 ppm 04/04/2025 7:51 AM EDT [facility] STAPHYLOCOCCUS AUREUS 0 26.000 - 31.595 ppm 04/04/2025 7:51 AM EDT [facility] STAPHYLOCOCCUS AUREUS Not Detected 26.000 - 31.595 ppm 04/04/2025 7:51 AM EDT [facility] STREPTOCOCCUS AGALACTIAE (GROUP B STREP) 0 26.000 - 32.435 ppm 04/04/2025 7:51 AM EDT [facility] STREPTOCOCCUS AGALACTIAE (GROUP B STREP) Not Detected 26.000 - 32.435 ppm 04/04/2025 7:51 AM EDT [facility] AINSLEY ALBICANS, PARAPSILOSIS, TROPICALIS 0 23.000 - 30.347 ppm 04/04/2025 7:51 AM EDT [facility] AINSLEY ALBICANS, PARAPSILOSIS, TROPICALIS Not Detected 23.000 - 30.347 ppm 04/04/2025 7:51 AM EDT [facility] AINSLEY GLABRATA 0 23.000 - 31.618 ppm 04/04/2025 7:51 AM EDT [facility] AINSLEY GLABRATA Not Detected 23.000 - 31.618 ppm 04/04/2025 7:51 AM EDT [facility] AINSLEY KRUSEI 0 23.000 - 30.873 ppm 04/04/2025 7:51 AM EDT [facility] AINSLEY KRUSEI Not Detected 23.000 - 30.873 ppm 04/04/2025 7:51 AM EDT [facility] SERRATIA MARCESCENS 0 23.000 - 31.581 ppm 04/04/2025 7:51 AM EDT [facility] SERRATIA MARCESCENS Not Detected 23.000 - 31.581 ppm 04/04/2025 7:51 AM EDT [facility] STREPTOCOCCUS PYOGENES (GROUP A STREP) 0 19.961 - 24.689 ppm 04/04/2025 7:51 AM EDT [facility] STREPTOCOCCUS PYOGENES (GROUP A STREP) Not Detected 19.961 - 24.689 ppm 04/04/2025 7:51 AM EDT [facility] STAPHYLOCOCCUS EPIDERMIDIS, HAEMOLYTICUS, LUGDUNENSIS, SAPROPHYTICUS (URINA 0 19.961 - 24.689 ppm 04/04/2025 7:51 AM EDT [facility] STAPHYLOCOCCUS EPIDERMIDIS, HAEMOLYTICUS, LUGDUNENSIS, SAPROPHYTICUS (URINA Not Detected 19.961 - 24.689 ppm 04/04/2025 7:51 AM EDT [facility] STAPHYLOCOCCUS EPIDERMIDIS, HAEMOLYTICUS, LUGDUNENSIS, SAPROPHYTICUS (URINA 0 19.961 - 24.689 ppm 04/04/2025 7:51 AM EDT [facility] STAPHYLOCOCCUS EPIDERMIDIS, HAEMOLYTICUS, LUGDUNENSIS, SAPROPHYTICUS (URINA Not Detected 19.961 - 24.689 ppm 04/04/2025 7:51 AM EDT [facility] 04/03/2025 3:53 PM EDT 04/04/2025 1:35 AM EDT us Regina RUIZ LAB BLOOD ORDERABLES Final Resul t [facility] [address] [place] [address] * US OB 14+ weeks anatomy scan (02/11/2025 1:59 PM EDT) Anatomical Region Laterality Modality Body Ultrasound 02/18/2025 11:0 4 AM EDT Impressions 02/18/2025 11:27 AM EDT Single, live intrauterine , current sonographic age of 21 weeks and 0 days, with an estimated date of delivery of June 24, 2025. TRANSCRIBED BY: ELECTRONICALLY SIGNED BY: Ron Reyes MD Narrative 02/18/2025 11:27 AM EDT FINDINGS: A single, live intrauterine is present [...] is 385 grams (0 pounds, 14 ounces). Procedure Note Ron Reyes MD - 02/18/2025 FINDINGS: A single, live intrauterine is present with normal cardiacrate of 141 beats per minute. Normal activity and amniotic fluidvolume. Morphology is grossly normal. The cervix is long and closed, 4.5cm. The placenta is anterior fundal, inferior margin 7 cm from the closedinternal cervical os. The current sonographic age is 21 weeks and 0 days,based on the following measurements: BPD 5.0 cm (21 weeks, 0 days) Head Circumference 18.6 cm (20 weeks, 6 days) Abdominal Circumference 15.8 cm (21 weeks, 0 days) Femur Length 3.4 cm (20 weeks, 6 days) Presentation Cephalic Placenta Anterior fundal These measurements result in an estimated date of delivery of June. The current estimated weight is 385 grams (0 pounds, 14ounces). IMPRESSION: Single, live intrauterine , current sonographic age of 21 weeksand 0 days, with an estimated date of delivery of June 24, 2025. TRANSCRIBED BY: ELECTRONICALLY SIGNED BY: Ron Reyes MD us Britt Foy DO [facility] US PROCEDURES Final Resul t from Last 3 Months Additional Health Concerns Active Problems Noted Date Diagnosed Date OB Reminders 11/29/2024 Insurance [employer]
--- OUTSIDE RECORDS SUMMARY | 2025-05-03 12:03 | XMS_ITS | Encounter Summary ---
Author Organization [facility] Address [address] [place] [address] Care Team Providers Care Gas Main Fitter Name Role Phone Unavailable Primary Care Provider Unavailabl e Encounter Details Date Type Department Care Team (Late st Contact Info) Description 04/30/2025 Clinisync Result Encounter [facility] Unsolicited Britt Foy DO [address] [place] [address] Social History Tobacco Use Types Packs/Day Years [...] Description 05/14/2025 2:50 [place] [id number] Britt Foy DO [address] [place] [address] 07/28/2025 4:00 PM EST Office Visit [address] [place] [address] Britt Foy DO [address] [facility] [place] [address] documented as of this encounter Goals Goal Patient Goal Type Associated Problems Recent Progress Patient-Stated? Author Reminders Care Plan OB Reminders No Open Scheduling, Background documented as of this encounter Procedures Procedure Name Priority Date/Time Associated Diagnosis Comments US OB BPP W NON-STRESS 04/30/2025 10:59 PM EDT documented in this encounter Results * US OB BPP W NON-STRESS (04/30/2025 10:59 PM EDT) Anatomical Region Laterality Modality Other 04/30/2025 10:5 9 PM EDT Narrative 04/30/2025 11:02 [place] [address] Ultrasound Report Signed Patient: VINNY HERRERA MR#: [id number] : 2000 Acct:[id number] Age/Sex: 24 / F ADM Date: 04/30/25 Loc: US Attending Dr: Britt Foy D.O. Ordering Physician: Britt Foy D.O. Date of Service: 04/30/25 Procedure(s): US OB BPP w non-stress Accession Number(s): [id number] cc: Britt Foy D.O.; Ynes Mistry NP [address] [address] Patient Name: VINNY HERRERA MRN: [id number] date: 2000 Sex: F Assigned Patient Location: [facility] Current Patient Location: Accession/Order Number: [id number] Exam Date: 04/30/2025 15:57 Report Date: 04/30/2025 22:59 At the request of: BRITT FOY DO Procedure: US OB BPP w non-stress Ultrasound biophysical profile INDICATION: Gestational diabetes COMPARISON: 04/05/2025 FINDINGS/IMPRESSION:: Fetus cephalic position. 02/28 score biophysical profile. heart rate 145 beats per minutes. JAMAL 12.7 cm. Impression dictated by: Chevy Moreland M.D. 04/30/2025 10:59 PM Dictation Location: [place] [address] Electronically authenticated by: [id number] Y Date: 04/30/2025 22:59 Dictated By: Chevy Moreland M.D. Signed By: 04/30/252301 DD/ 58 TD/TT: Music Pastor: Procedure Note Radiology, Radiologist, MD - 04/30/2025 [place] [address] Ultrasound Report Signed Patient: VINNY HERRERA CMR#: [id number] : 2000Acct:[id number] Age/Sex: 24 / FADM Date: 04/30/25 Loc: US Attending Dr: Britt Foy D.O. Ordering Physician: Britt Foy D.O. Date of Service: 04/30/25 Procedure(s): US OB BPP w non-stress Accession Number(s): [id number] cc: Britt Foy D.O.; Ynes Mistry [facility] [place] [id number] Patient Name: VINNY HERRERA MRN: [facility]:[id number] date: 2000 Sex: F Assigned Patient Location: [facility] Current Patient Location: Accession/Order Number: [id number] Exam Date: 04/30/2025 15:57 Report Date: 04/30/2025 22:59 At the request of: BRITT FOY DO Procedure: US OB BPP w non-stress Ultrasound biophysical profile INDICATION: Gestational diabetes COMPARISON: 04/05/2025 FINDINGS/IMPRESSION:: Fetus cephalic position. 02/28 score biophysical profile. heart rate 145 beats per minutes. JAMAL 12.7 cm. Impression dictated by: Chevy Moreland M.D. 04/30/2025 10:59 PM Dictation Location: [place] [address] Electronically authenticated by: [id number] Y Date: 2:59 Dictated By: Chevy Moreland M.D. Signed By:04/30/252301 DD/ 58 TD/TT: Music Pastor: us Britt Foy DO [facility] Final Result documented in this encounter Visit Diagnoses Not on filedocumented in this encounter Additional Health Concerns Active Problems Noted Date Diagnosed Date OB Reminders 11/29/2024 documented as of this encounter
[2025-05-03 12:07] VITALS: BP 115/68; PULSE 91; TEMP 36.5
== END 2025-05-03 12:47 | disposition home or self-care (01) ==
LOC: FBCO 11:59 → FBC 12:01
PROVIDERS: PCP Nurse Practitioner Women's Health; Visit Provider Obstetrics & Gynecology
DX: O24.419 Gestational diabetes mellitus in pregnancy, unspecified control (principal); Z3A.32 32 weeks gestation of pregnancy
CPT/HCPCS: 59025

== ENCOUNTER 2025-05-07 15:59 | Outpatient (OUT) | payer OTHER, SELFPAY ==
--- OUTSIDE RECORDS SUMMARY | 2025-05-07 16:05 | XMS_ITS | CCD ---
Author Organization [facility] Care Team Providers Care International Sales Representative Name Role Phone Jannette Peña I Primary Care Provider Ynes Rodriguez Primary Care Provider [phone] Fede LUX Ynes ANDRES Primary Care Provide r LAW, MUKUL R Admitting Unavailable LAW, MUKUL R Primary Care Unavailable LAW, MUKUL R Admitting Unavailable LAW, MUKUL R Primary Care Unavailable LAW, MUKUL R Admitting Unavailable LAW, MUKUL R Primary Care Unavailable BERTO LIVE Admitting Unavailabl e LAW, MUKUL R Primary Care Unavailable Fede VENEER GRADER - CONDEMNATION ENGINEER, Ynes Conner Primary Care Provide r Unavailable Primary Care Provider Unavailabl e LAW ., DR DE LA TORRE Attending Unavailable MISC, DR YAÑEZ Primary Care Unavailable [place], DR YELENA Henao Consulting Unavailable LAW ., [...] Unavailable MISC, DR YAÑEZ Primary Care Unavailable [place], DR YELENA Henao Consulting Unavailable LAW ., [...] EC tablet Indications: 23 weeks gestation of ([facility]) , Elevated blood sugar level , [...] accident; Translations: [ENC EXAM AND OBSERVATION FOLLOW [facility]] Onset: 12-12-2022 Episodic Other liver diseases (3 [...] US OB BPP W NON-STRESS on 04-30-2025 [place] [address] Ultrasound Report Signed Patient: VINNY DOWNEY MR#: [id number] : 2000 Acct:[id number] Age/Sex: 24 / F ADM Date: 04/30/25 Loc: US Attending Dr: Mukul Foy D.O. Ordering Physician: Mukul Foy D.O. Date of Service: 04/30/25 Procedure(s): US OB BPP w non-stress Accession Number(s): [id number] cc: Mukul Foy D.O.; Ynes Rodriguez [place] [id number] Patient Name: VINNY DWONEY MRN: [facility]:[id number] date: 2000 Sex: F Assigned Patient Location: [facility] Current Patient Location: Accession/Order Number: [id number] Exam Date: 04/30/2025 15:57 Report Date: 04/30/2025 22:59 At the request of: MUKUL FOY DO Procedure: US OB BPP w non-stress Ultrasound biophysical profile INDICATION: Gestational diabetes COMPARISON: 04/05/2025 FINDINGS/IMPRESSION: : Fetus cephalic position. 8/8 score biophysical profile. heart rate 145 beats per minutes. JAMAL 12.7 cm. Impression dictated by: Chevy Moreland M.D. 04/30/2025 10:59 PM Dictation Location: RADIO-PC-29 Electronically authenticated by: [id number] Y Date: 04/30/2025 22:59 Dictated By: Chevy Moreland M.D. Signed By: 04/30/252301 DD/ 58 TD/TT: Fruit And Vegetable Classer: [facility] Radiology, Radiologist, MD - 04/30/2025 [place] [address] Ultrasound Report Signed Patient: VINNY DOWNEY MR#: [id number] : 2000 Acct:[id number] Age/Sex: 24 / F ADM Date: 04/30/25 Loc: US Attending Dr: Mukul Foy D.O. Ordering Physician: Mukul Foy D.O. Date of Service: 04/30/25 Procedure(s): US OB BPP w non-stress Accession Number(s): [id number] cc: Mukul Foy D.O.; Ynes Rodriguez LONG DISTANCE BILLING OPERATOR [facility] [place] [address] Patient Name: VINNY DOWNEY MRN: [facility]:[id number] date: 2000 Sex: F Assigned Patient Location: [facility] Current Patient Location: Accession/Order Number: [id number] Exam Date: 04/30/2025 15:57 Report Date: 04/30/2025 22:59 At the request of: MUKUL FOY DO Procedure: US OB BPP w non-stress Ultrasound biophysical profile INDICATION: Gestational diabetes COMPARISON: 04/05/2025 FINDINGS/IMPRESSION: : Fetus cephalic position. 02/28 score biophysical profile. heart rate 145 beats per minutes. JAMAL 12.7 cm. Impression dictated by: Chevy Moreland M.D. 04/30/2025 10:59 PM Dictation Location: RADIOthe ShelfPC-29 Electronically authenticated by: [id number] Y Date: 04/30/2025 22:59 Dictated By: Chevy Moreland M.D. Signed By: 04/30/25 3342 DD/ 58 TD/TT: Fruit And Vegetable Classer: [facility] Radiology Study observation (narrative) [facility] US OB BPP W NON-STRESS Ordered By: Radiologist Radiology on 04-30-2025 [facility] Work Phone: Urinalysis macro (dipstick) panel (U)on 04-30-2025 Bilirubin, UA Negative Negative - 4(70) +++ mg/dL [facility] Blood, UA Negative Negative - 50 Yunior/mcL [facility] Clarity, UA Clear [facility] Color, UA Yellow [facility] Glucose, UA Negative Negative - 1999(110) ++++ mg/dL [facility] Interpretation and review of laboratory results Abnormal [facility] Ketones, UA Negative Negative - 160(16) ++++ mg/dL [facility] Leukocytes, UA 1+ Negative - 500+++ Trip/mcL [facility] Nitrite, UA Negative Negative - Positive [facility] pH, UA 6.5 5 - 9 [facility] Protein, UA Negative Negative - 1999(20) ++++ mg/dL [facility] Spec Grav, UA 1.01 1 - 1.03 [facility] Urobilinogen, UA 2.0 0.2 - 12 mg/dL [facility] Urinalysis macro (dipstick) panel (U)on 04-14-2025 Bilirubin, UA Negative Negative - 4(70) +++ mg/dL [facility] Blood, UA Negative Negative - 50 Yunior/mcL [facility] Clarity, UA Clear [facility] Color, UA Yellow [facility] Glucose, UA Negative Negative - 1999(110) ++++ mg/dL [facility] Interpretation and review of laboratory results Normal [facility] Ketones, UA Negative Negative - 160(16) ++++ mg/dL [facility] Leukocytes, UA Negative Negative - 500+++ Trip/mcL [facility] Nitrite, UA Negative Negative - Positive [facility] pH, UA 6.5 5 - 9 [facility] Protein, UA Negative Negative - 1999(20) ++++ mg/dL [facility] Spec Grav, UA 1.005 1 - 1.03 [facility] Urobilinogen, UA 0.2 0.2 - 12 mg/dL [facility] ALL CBC WITH AUTO DIFFon BASOPHILS ABSOLUTE AUTO 0 [facility] Basophils/100 WBC (Bld) 0.2 % 0.2 - 2.0 % [facility] Eosinophils/100 WBC (Bld) 1.1 % 0.9 - 7.0 % [facility] Erythrocyte distribution width (RBC) [Ratio] 12.8 % 11.0 - 15.0 % [facility] Hematocrit (Bld) [Volume fraction] 30.7 % Low 36.0 - 48.0 % [facility] Hemoglobin (Bld) [Mass/Vol] 10.3 g/dL Low 12.0 - 16.0 g/dL [facility] IMMATURE GRANULOCYTES ABS AUTO 0.04 High [facility] Immature granulocytes/100 WBC (Bld) 0.4 % 0.0 - 0.5 % [facility] Interpretation and review of laboratory results Abnormal [facility] LYMPHOCYTES ABSOLUTE AUTO 1.9 [facility] Lymphocytes/100 WBC (Bld) 17.1 % Low 20.5 - 60.0 % [facility] MCH (RBC) [Entitic mass] 29.7 pg 26.7 - 34.0 pg [facility] MCHC (RBC) [Mass/Vol] 33.6 g/dL 29.9 - 35.2 g/dL [facility] MCV (RBC) [Entitic vol] 88.5 fL 81.0 - 99.0 fL [facility] MONOCYTES ABSOLUTE AUTO 0.7 [facility] Monocytes/100 WBC (Bld) 6.5 % 1.7 - 12.0 % [facility] NEUTROPHILS ABSOLUTE AUTO 8.2 High [facility] Neutrophils/100 WBC (Bld) 74.7 % 43.0 - 75.0 % [facility] Platelet mean volume (Bld) [Entitic vol] 8.7 fL Low 9.5 - 13.5 fL [facility] TBH EO # 0.1 [facility] PLT 358 [facility] RBC 3.47 Low [facility] TB WBC 11 [facility] CL[facility]ISYNC [facility] US OB GROWTHon 04-05-[address] [address] Ultrasound Report Signed Patient: VINNY DOWNEY MR#: [id number] : 2000 Acct:[id number] Age/Sex: 24 / F ADM Date: 04/05/25 Loc: US Attending Dr: Virgil Barton Ordering Physician: Virgil Barton Date of Service: 04/05/25 Procedure(s): US OB growth Accession Number(s): [id number] cc: Virgil Barton; Physician,Non-Staff Khadar [facility] [place] [address] Patient Name: VINNY DOWNEY MRN: [facility]:[id number] date: 2000 Sex: F Assigned Patient Location: US Current Patient Location: LAB Accession/Order Number: [id number] Exam Date: 04/05/2025 10:00 Report Date: 04/05/2025 [...] Peraza M.D. 04/05/2025 12:08 PM Dictation Location: [place] [address] Electronically authenticated by: [id number] Y Date: 04/05/2025 12:08 Dictated By: Daryn Peraza D.O. Signed By: 04/05/25 1211 DD/ 1208 TD/TT: Fruit And Vegetable Classer: [facility] Radiology, Radiologist, MD - 04/05/2025 [place] [address] Ultrasound Report Signed Patient: VINNY DOWNEY MR#: [id number] : 2000 Acct:[id number] Age/Sex: 24 / F ADM Date: 04/05/25 Loc: US Attending Dr: Virgil Barton Ordering Physician: Virgil Barton Date of Service: 04/05/25 Procedure(s): US OB growth Accession Number(s): [id number] cc: Virgil Barton; Physician,Non-Staff Khadar [facility] [place] [id number] Patient Name: VINNY DOWNEY MRN: [id number]:[id number] date: 2000 Sex: F Assigned Patient Location: US Current Patient Location: LAB Accession/Order Number: [id number] Exam Date: 04/05/2025 10:00 Report Date: 04/05/2025 [...] Peraza M.D. 04/05/2025 12:08 PM Dictation Location: [facility] Electronically authenticated by: [id number] Y Date: 04/05/2025 12:08 Dictated By: Daryn Peraza D.O. Signed By: 04/05/25 1211 DD/ 1208 TD/TT: Fruit And Vegetable Classer: [facility] Radiology Study observation (narrative) [facility] OB GROWTHOrdered By: Kady ologist Radiology on 04-05-2025 [facility] Work Phone: Urinalysis macro (dipstick) panel (U)on 04-03-2025 Bilirubin, UA Negative Negative - 4(70) +++ mg/dL [facility] Blood, UA Negative Negative - 50 Yunior/mcL [facility] Clarity, UA Clear [facility] Color, UA Yellow [facility] Glucose, UA Negative Negative - 2000(110) ++++ mg/dL [facility] Interpretation and review of laboratory results Abnormal [facility] Ketones, UA Negative Negative - 160(16) ++++ mg/dL [facility] Leukocytes, UA Positive Negative - 500+++ Trip/mcL [facility] Nitrite, UA Negative Negative - Positive [facility] pH, UA 6.5 5 - 9 [facility] Protein, UA Negative Negative - 1999(20) ++++ mg/dL [facility] Spec Grav, UA 1.01 1 - 1.03 [facility] Urobilinogen, UA 1.0 0.2 - 12 mg/dL [facility] Urinalysis macro (dipstick) panel (U)on 03-12-2025 Bilirubin, UA Negative Negative - 4(70) +++ mg/dL [facility] Blood, UA Negative Negative - 50 Yunior/mcL [facility] Clarity, UA Clear [facility] Color, UA Yellow [facility] Glucose, UA Negative Negative - 1999(110) ++++ mg/dL [facility] Interpretation and review of laboratory results Normal [facility] Ketones, UA Negative Negative - 160(16) ++++ mg/dL [facility] Leukocytes, UA Negative Negative - 500+++ Trip/mcL [facility] Nitrite, UA Negative Negative - Positive [facility] pH, UA 6.5 5 - 9 [facility] Protein, UA Negative Negative - 1999(20) ++++ mg/dL [facility] Spec Grav, UA 1.01 1 - 1.03 [facility] Urobilinogen, UA 1.0 0.2 - 12 mg/dL [facility] Urinalysis macro (dipstick) panel (U)on 02-26-2025 Bilirubin, UA Negative Negative - 4(70) +++ mg/dL [facility] Blood, UA Negative Negative - 50 Yunior/mcL [facility] Clarity, UA Clear [facility] Color, UA Yellow [facility] Glucose, UA Negative Negative - 1999(110) ++++ mg/dL [facility] Interpretation and review of laboratory results Normal [facility] Ketones, UA Negative Negative - 160(16) ++++ mg/dL [facility] Leukocytes, UA Negative Negative - 500+++ Trip/mcL [facility] Nitrite, UA Negative Negative - Positive [facility] pH, UA 6 5 - 9 [facility] Protein, UA Negative Negative - 1999(20) ++++ mg/dL [facility] Spec Grav, UA 1.01 1 - 1.03 [facility] Urobilinogen, UA 0.2 0.2 - 12 mg/dL [facility] US OB 14+ WEEKS ANATOMY SCAN on [...] UA Negative Negative - 4(70) +++ mg/dL [facility] Blood, UA Negative Negative - 50 Yunior/mcL [facility] Clarity, UA Clear [facility] Color, UA Yellow [facility] Glucose, UA Negative Negative - 1999(110) ++++ mg/dL [facility] Interpretation and review of laboratory results Normal [facility] Ketones, UA Negative Negative - 160(16) ++++ mg/dL [facility] Leukocytes, UA Negative Negative - 500+++ Trip/mcL [facility] Nitrite, UA Negative Negative - Positive [facility] pH, UA 6.5 5 - 9 [facility] Protein, UA Negative Negative - 1999(20) ++++ mg/dL [facility] Spec Grav, UA 1.025 1 - 1.03 [facility] Urobilinogen, UA 1.0 0.2 - 12 mg/dL [facility] RECURRENT VAGINITIS (HTRX)on 01-17-2025 ATOPOBIUM VAGINAE 0 [facility] ATOPOBIUM VAGINAE Not detected [facility] BVAB 2,3 (BACTERIAL VAGINOSIS ASSOCIATED BACTERIA 2, 3); MOBILUNCUS SPP 0 [facility] BVAB 2,3 (BACTERIAL VAGINOSIS ASSOCIATED BACTERIA 2, 3); MOBILUNCUS SPP Not detected [facility] AINSLEY ALBICANS, PARAPSILOSIS, TROPICALIS 0 [facility] AINSLEY ALBICANS, PARAPSILOSIS, TROPICALIS Not detected [facility] AINSLEY GLABRATA 0 [facility] AINSLEY GLABRATA Not detected [facility] AINSLEY KRUSEI 0 [facility] AINSLEY KRUSEI Not detected [facility] CHLAMYDIA TRACHOMATIS 0 [facility] CHLAMYDIA TRACHOMATIS Not detected [facility] GARDNERELLA VAGINALIS 0 [facility] GARDNERELLA VAGINALIS Not detected [facility] MEGASPHAERA (TYPES 1, 2) 0 [facility] MEGASPHAERA (TYPES 1, 2) Not detected [facility] MYCOPLASMA GENITALIUM 0 [facility] MYCOPLASMA GENITALIUM Not detected [facility] NEISSERIA GONORRHOEAE 0 [facility] NEISSERIA GONORRHOEAE Not detected [facility] TRICHOMONAS VAGINALIS 0 [facility] TRICHOMONAS VAGINALIS Not detected [facility] CBCon 01-07-2025 Erythrocyte distribution width (RBC) [Ratio] 12.6 % 11.8 - 14.4 % [facility] Hematocrit (Bld) [Volume fraction] 35.4 % Low 36.3 - 47.1 % [facility] Hemoglobin (Bld) [Mass/Vol] 11.7 g/dL Low 11.9 - 15.1 g/dL [facility] Interpretation and review of laboratory results Abnormal [facility] MCH (RBC) [Entitic mass] 30 pg 25.2 - 33.5 pg [facility] MCHC (RBC) [Mass/Vol] 33.1 g/dL 28.4 - 34.8 g/dL [facility] MCV (RBC) [Entitic vol] 90.8 fL 82.6 - 102.9 fL [facility] Nucleated RBC/100 WBC (Bld) [Ratio] 0 % 0.0 per 100 WBC [facility] Platelet mean volume (Bld) [Entitic vol] 8.7 fL 8.1 - 13.5 fL [facility] Platelets (Bld) [#/Vol] 316 10*3/uL [facility] RBC (Bld) [#/Vol] 3.9 10*6/uL Low 3.95 - 5.1 1 m/uL [facility] WBC other (Bld) [#/Vol] 10.2 [facility] Erythrocyte distribution width (RBC) [Ratio] 12.6 % Normal 11.8-14.4 [facility] Comment on above: Performed By: #### G LUSILVINO, CBC #### [address] [place] [address] E Business Specialist: Yelena Greco MD Hematocrit (Bld) [Volume fraction] 35.4 % Low 36.3-47.1 [facility] Comment on above: Performed By: #### G LUSC, CBC #### [address] [place] [place] [address] E Business Specialist: Yelena Greco MD Hemoglobin (Bld) [Mass/Vol] 11.7 g/dL Low 11.9-15.1 [facility] Comment on above: Performed By: #### G LUSC, CBC #### [address] [place] [place] [address] E Business Specialist: Yelena Greco MD MCH (RBC) [Entitic mass] 30.0 pg Normal 25.2-33.5 [facility] Comment on above: Performed By: #### G LUSC, CBC #### [address] [place] [place] [address] E Business Specialist: Yelena Greco MD MCHC (RBC) [Mass/Vol] 33.1 g/dL Normal 28.4-34.8 [facility] Comment on above: Performed By: #### G LUSC, CBC #### [address] [place], [place] [id number] E Business Specialist: Yelena Greco MD MCV (RBC) [Entitic vol] 90.8 fL Normal 82.6-102.9 [facility] Comment on above: Performed By: #### G LUSC, CBC #### [address] [place], [place] [id number] E Business Specialist: Yelena Greco MD NRBC Automated 0.0 per 100 WBC Normal 0.0 [facility] Comment on above: Performed By: #### G JANAE, CBC #### [address] [place], [place] [id number] E Business Specialist: Yelena Greco MD Platelet mean volume (Bld) [Entitic vol] 8.7 fL Normal 8.1-13.5 [facility] Comment on above: Performed By: #### G JANAE, CBC #### [address] [place], [place] [id number] E Business Specialist: Yelena Greco MD Platelets (Bld) [#/Vol] 316 10*3/uL Normal 138-453 [facility] Comment on above: Performed By: #### G JANAE, CBC #### [address] [place], [place] [id number] E Business Specialist: Yelena Greco MD RBC (Bld) [#/Vol] 3.90 10*6/uL Low 3.95-5.11 [facility] Comment on above: Performed By: #### G JANAE, CBC #### [address] [place], [place] [id number] E Business Specialist: Yelena Greco MD WBC (Bld) [#/Vol] 10.2 10*3/uL Normal 3.5-11.3 [facility] Comment on above: Performed By: #### G JANAE, CBC #### [address] [place] [place] [address] E Business Specialist: Yelena Greco MD Glucose Challenge Gestationa harlan 01-07-2025 GLU ADMN Glucola [facility] Glucose 1 Hr post 50 g glucose PO [Mass/Vol] 184 mg/dL High 70 - 135 mg/dL [facility] Interpretation and review of laboratory results Abnormal [facility] Glucose Toya Scr 50gon 2024 Glucose [Mass/Vol] 184 mg/dL High 70-135 [facility] Comment on above: Performed By: #### G LUSC, CBC #### [facility] [address] [place] [address] E Business Specialist: Yelena Greco MD Glu Administered via Glucola Normal [facility] Comment on above: Performed By: #### G LUSC, CBC #### [facility] [address] [place] [id number] E Business Specialist: Yelena Greco MD US OB LESS [...] by: Noah Rivero MD 12/23/24 Final result [facility] Radiology, Radiologist, - 12/23/2024 EXAMINATION: FIRST [...] by: Noah Rivero MD 12/23/24 Final result [facility] Radiology Study observation (narrative) [facility] US OB LESS THAN 14 WEEKS SIN GLE OR FIRST GESTATIONOrdered By: Radiologist Radiology on 12-23-2024 [facility] Work Phone: US OB LESS THAN [...] Noah Rivero MD 12/23/24 Final result Normal [facility] Urinalysis macro (dipstick) panel (U)on 12-18-2024 Bilirubin, UA Negative Negative - 4(70) +++ mg/dL [facility] Blood, UA Positive Negative - 50 Yunior/mcL [facility] Clarity, UA Clear [facility] Color, UA Yellow [facility] Glucose, UA Negative Negative - 1999(110) ++++ mg/dL [facility] Interpretation and review of laboratory results Abnormal [facility] Ketones, UA Negative Negative - 160(16) ++++ mg/dL [facility] Leukocytes, UA Negative Negative - 500+++ Trip/mcL [facility] Nitrite, UA Negative Negative - Positive [facility] pH, UA 7 5 - 9 [facility] Protein, UA Negative Negative - 1999(20) ++++ mg/dL [facility] Spec Grav, UA 1.01 1 - 1.03 [facility] Urobilinogen, UA 1.0 0.2 - 12 mg/dL [facility] HCG ( test) Ql (U)o n 11-14-2024 Interpretation and review of laboratory results Abnormal [facility] Preg Test, Ur Positive Negative [facility] US OB TRANSVAGINALon 025 US OB TRANSVAGINAL [...] II, MD, PHD at 15-Nov-2024 09:44:32 AM [facility] [employer] Normal Not Available Comment on above: Order Comment: US OB TRANSVAGINAL No LMP recorded. Urinalysis macro (dipstick) panel (U)on 11-14-2024 Bilirubin, UA Negative Negative - 4(70) +++ mg/dL [facility] Blood, UA Negative Negative - 50 Yunior/mcL [facility] Clarity, UA Clear [facility] Color, UA Yellow [facility] Glucose, UA Negative Negative - 1999(110) ++++ mg/dL [facility] Interpretation and review of laboratory results Normal [facility] Ketones, UA Negative Negative - 160(16) ++++ mg/dL [facility] Leukocytes, UA Negative Negative - 500+++ Trip/mcL [facility] Nitrite, UA Negative Negative - Positive [facility] pH, UA 6.5 5 - 9 [facility] Protein, UA Negative Negative - 1999(20) ++++ mg/dL [facility] Spec Grav, UA 1.005 1 - 1.03 [facility] Urobilinogen, UA 0.2 0.2 - 12 mg/dL [facility] IGP,APTIMA HPV,AGE GDLNon AGE GDLN ACOG TESTING Note . [facility] Comment on above: TESTS RESULT FLAG U NITS REF RANGE LAB Clinician Provided Cytology Information Source.............Cervix;Endocervix No. of containers..01 ThinPrep Vial Age Algo ACOG Addie... FLAG LEGEND: L-Low Normal,H-High Normal,LL-Alert Low,HH-Alert High <-Panic Low,>-Panic High,A-Abnormal,AA-Critical Abnormal Performed at: 01 =[facility] [place] [address] Anastasiya Moses MD, IGP, RFX APTIMA HPV ASCU Note . [facility] Comment on above: TESTS RESULT FLAG UN ITS REF RANGE LAB DIAGNOSIS: 02 NEGATIVE FOR INTRAEPITHELIAL LESION OR MALIGNANCY. Specimen adequacy: 02 Satisfactory for evaluation. Endocervical and/or squamous metaplastic cells (endocervical component) are present. Performed by: 02 Maico Galaviz, Care Connector ([facility]) . 02 Note: Note 02 The [...] <-Panic Low,>-Panic High,A-Abnormal,AA-Critical Abnormal Performed at: [address] [place] [address] Anastasiya Moses MD, Performed at: = - [facility], [place] [id number] E Business Specialist: Anastasiya Moses MD, Phone: [phone] Performed at: [place] [address] [place] [id number] E Business Specialist: Anastasiya Moses MD, Phone: [phone] [facility] Comp Metabolic Profon 2023 Albumin [Mass/Vol] 4.6 g/dL Normal 3.5-5.2 [facility] Comment on above: Performed By: #### C P #### [facility] [address] [place], [place] [id number] E Business Specialist: Yelena Greco MD Albumin/Glob Ratio 1.5 Normal 1.0-2.5 [facility] Comment on above: Performed By: #### C P #### [facility] [address] [place], [place] [id number] E Business Specialist: Yelena Greco MD Alkaline Phos 71 U/L Normal 35-104 [facility] Comment on above: Performed By: #### C P #### [facility] [address] [place], [place] [id number] E Business Specialist: Yelena Greco MD ALT [Catalytic activity/Vol] 41 U/L High 10-35 [facility] Comment on above: Performed By: #### C P #### [facility] [address] [place] [address] E Business Specialist: Yelena Greco MD Anion gap [Moles/Vol] 10 mmol/L Normal 9-16 [facility] Comment on above: Performed By: #### C P #### [facility] [address] [place], [place] [id number] E Business Specialist: Yelena Greco MD AST [Catalytic activity/Vol] 34 U/L Normal 10-35 [facility] Comment on above: Performed By: #### C P #### [facility] [address] [place], [place] [id number] E Business Specialist: Yelena Greco MD Bilirubin [Mass/Vol] 0.4 mg/dL Normal 0.00-1.20 [facility] Comment on above: Performed By: #### C P #### [facility] [address] [place], [place] [id number] E Business Specialist: Yelena Greco MD BUN/CRE Ratio 22 High 9-20 [facility] Comment on above: Performed By: #### C P #### [facility] [address] [place], [place] [id number] E Business Specialist: Yelena Greco MD Calcium [Mass/Vol] 9.4 mg/dL Normal 8.6-10.4 [facility] Comment on above: Performed By: #### C P #### [facility] [address] [place], [place] [id number] E Business Specialist: Yelena Greco MD Chloride [Moles/Vol] 103 mmol/L Normal 98-107 [facility] Comment on above: Performed By: #### C P #### [facility] [address] [place], [place] [id number] E Business Specialist: Yelena Greco MD CO2 [Moles/Vol] 25 mmol/L Normal 20-31 [facility] Comment on above: Performed By: #### C P #### [facility] [address] [place] [id number] E Business Specialist: Yelena Greco MD Creatinine [Mass/Vol] 0.6 mg/dL Normal 0.50-0.90 [facility] Comment on above: Performed By: #### C P #### [facility] [address] [place], [place] [id number] E Business Specialist: Yelena Greco MD GFR/1.73 sq M.predicted among non-blacks MDRD (S/P/Bld) [Vol rate/Area] mL/min/{1.73_m2} Normal >60 [facility] Comment on above: Result Comment: These [...] secretion. Performed By: #### C P #### [facility] [address] [place] [address] E Business Specialist: Yelena Greco MD Glucose [Mass/Vol] 83 mg/dL Normal 74-99 [facility] Comment on above: Performed By: #### C P #### [facility] [address] [place], [place] [id number] E Business Specialist: Yelena Greco MD Potassium [Moles/Vol] 4.6 mmol/L Normal 3.7-5.3 [facility] Comment on above: Performed By: #### C P #### [facility] [address] [place], [place] [id number] E Business Specialist: Yelena Greco MD Protein [Mass/Vol] 7.8 g/dL Normal 6.6-8.7 [facility] Comment on above: Performed By: #### C P #### [facility] [address] [place] [address] [place] [place], [place] [id number] E Business Specialist: Yelena Greco MD Sodium [Moles/Vol] 138 mmol/L Normal 136-145 [facility] Comment on above: Performed By: #### C P #### [facility] [address] [place], [place] [id number] E Business Specialist: Yelena Greco MD Urea nitrogen [Mass/Vol] 13 mg/dL Normal 6-20 [facility] Comment on above: Performed By: #### C P #### [facility] [address] [place] [address] E Business Specialist: Yelena Greco MD [facility] Metabolic Radha claros 05-20-2024 Albumin [Mass/Vol] 4.6 g/dL 3.5 - 5.2 g/dL [facility] Albumin/Globulin [Mass ratio] 1.5 {ratio} 1.0 - 2.5 [facility] ALP [Catalytic activity/Vol] 71 U/L 35 - 104 U/L [facility] ALT [Catalytic activity/Vol] 41 U/L High 10 - 35 U/L [facility] Anion gap [Moles/Vol] 10 mmol/L 9 - 16 mmol/L [facility] AST [Catalytic activity/Vol] 34 U/L 10 - 35 U/L [facility] Bilirubin [Mass/Vol] 0.4 mg/dL 0.00 - 1.20 mg/dL [facility] Calcium [Mass/Vol] 9.4 mg/dL 8.6 - 10. 4 mg/dL [facility] Chloride [Moles/Vol] 103 mmol/L 98 - 107 mmol/L [facility] CO2 [Moles/Vol] 25 mmol/L 20 - 31 mmol/L [facility] Creatinine [Mass/Vol] 0.6 mg/dL 0.50 - 0.90 mg/dL [facility] Est, Cynthia Buttt Rate - PINF [facility] Comment on above: These results are not [...] [Mass/Vol] 83 mg/dL 74 - 99 mg/dL [facility] Interpretation and review of laboratory results Abnormal [facility] Potassium [Moles/Vol] 4.6 mmol/L 3.7 - 5.3 mmol/L [facility] Protein [Mass/Vol] 7.8 g/dL 6.6 - 8.7 g/dL [facility] Sodium [Moles/Vol] 138 mmol/L 136 - 145 mmol/L [facility] Urea nitrogen [Mass/Vol] 13 mg/dL 6 - 20 mg/dL [facility] Urea nitrogen/Creatinine [Mass ratio] 22 mg/mg High 9 - 20 [facility] Lipid Panelon 05-20-2024 Cholesterol [Mass/Vol] 152 mg/dL 0 - 199 mg/dL [facility] Comment on above: Cholesterol Guidelines: <200 Desirable 200-240 Borderline >240 Undesirable Cholesterol in HDL [Mass/Vol] 33 mg/dL Low 40 - PINF mg/dL [facility] Comment on above: HDL Guidelines: <40 Undesirable 40-59 Borderline >59 Desirable Cholesterol in LDL [Mass/Vol] 88 mg/dL 0 - 100 mg/dL [facility] Comment on above: LDL Guidelines: <100 Desirable 100-129 Near to/above Desirable 130-159 Borderline >159 Undesirable Direct (measured) LDL and calculated LDL are not interchangeable tests. Cholesterol in VLDL [Mass/Vol] 31 mg/dL [facility] Cholesterol.total/Ch olesterol in HDL [Mass ratio] 5.0 {ratio} [facility] Interpretation and review of laboratory results Abnormal [facility] Triglyceride [Mass/Vol] 156 mg/dL High NINF - 150 mg/dL [facility] Comment on above: Triglyceride Guidelines: <150 Desirable 150-199 Borderline 200-499 High >499 Very high Based on AHA Guidelines for fasting triglyceride, April 2012. [facility] Lipid Profileon 05-20-2024 Cholesterol [Mass/Vol] 152 mg/dL Normal 0-199 [facility] Comment on above: Result Comment: Cholesterol Guidelines: <200 Desirable 200-240 Borderline >240 Undesirable Performed By: #### L IPR #### [facility] [address] [place], [place] [id number] E Business Specialist: Osvaldo Santamaria MD Cholesterol in HDL [Mass/Vol] 33 mg/dL Low >40 [facility] Comment on above: Result Comment: HDL Guidelines: <40 Undesirable 40-59 Borderline >59 Desirable Performed By: #### L IPR #### [facility] [address] [place], [place] [id number] E Business Specialist: Osvaldo Santamaria MD Cholesterol in LDL [Mass/Vol] 88 mg/dL Normal 0-100 [facility] Comment on above: Result Comment: LDL Guidelines: <100 Desirable 100-129 Near to/above Desirable 130-159 Borderline >159 Undesirable Direct (measured) LDL and calculated LDL are not interchangeable tests. Performed By: #### L IPR #### [facility] [place] [address] E Business Specialist: Osvaldo Santamaria MD Cholesterol in VLDL [Mass/Vol] 31 mg/dL Normal [facility] Comment on above: Performed By: #### L IPR #### [facility] [place] [address] E Business Specialist: Osvaldo Santamaria MD Cholesterol.total/Ch olesterol in HDL [Mass ratio] 5.0 {ratio} Normal [facility] Comment on above: Performed By: #### L IPR #### [facility] [address] [place] [address] E Business Specialist: Osvaldo Santamaria MD Triglyceride [Mass/Vol] 156 mg/dL High <150 [facility] Comment on above: Result Comment: Triglyceride Guidelines: <150 Desirable 150-199 Borderline 200-499 High >499 Very high Based on AHA Guidelines for fasting triglyceride, April 2012. Performed By: #### L IPR #### [facility] [place] [address] E Business Specialist: Osvaldo Santamaria MD US GALLBLADDER RUQon 024 US GALLBLADDER RUQ EXAMINATION: RIGHT UPPER QUADRANT ULTRASOUND 03/06/2024 9:58 am COMPARISON: None. HISTORY: ORDERING SYSTEM PROVIDED HISTORY: Elevated liver enzymes TECHNOLOGIST PROVIDED HISTORY: This procedure can be scheduled via [facility]. elevated liver enzymes, fam hx gallbladder disease. [...] Hernandez Stewart MD 03/06/24 Final result Normal [facility] CBCon 02-16-2024 Erythrocyte distribution width (RBC) [Ratio] 12.4 % Normal 11.8-14.4 [facility] Comment on above: Performed By: #### F EBC #### [address] [address] E Business Specialist: Osvaldo Santamaria MD #### CBC, CP #### [address] [place] [place] [address] E Business Specialist: Yelena Greco MD Hematocrit (Bld) [Volume fraction] 40.2 % Normal 36.3-47.1 [facility] Comment on above: Performed By: #### F EBC #### [address] [address] E Business Specialist: Osvaldo Santamaria MD #### CBC, CP #### [address] [place] [place] [address] E Business Specialist: Yelena Greco MD Hemoglobin (Bld) [Mass/Vol] 13.5 g/dL Normal 11.9-15.1 [facility] Comment on above: Performed By: #### F EBC #### [address] [address] E Business Specialist: Osvaldo Santamaria MD #### CBC, CP #### [address] [place] [place] [address] E Business Specialist: Yelena Greco MD MCH (RBC) [Entitic mass] 29.8 pg Normal 25.2-33.5 [facility] Comment on above: Performed By: #### F EBC #### [address] [address] E Business Specialist: Osvaldo Santamaria MD #### CBC, CP #### [address] [place], [place] [id number] E Business Specialist: Yelena Greco MD MCHC (RBC) [Mass/Vol] 33.6 g/dL Normal 28.4-34.8 [facility] Comment on above: Performed By: #### F EBC #### [address] [address] E Business Specialist: Osvaldo Santamaria MD #### CBC, CP #### [address] [place] [place] [address] E Business Specialist: Yleena Greco MD MCV (RBC) [Entitic vol] 88.7 fL Normal 82.6-102.9 [facility] Comment on above: Performed By: #### F EBC #### [address] [address] E Business Specialist: Osvaldo Santamaria MD #### CBC, CP #### [address] [place] [place] [address] E Business Specialist: Yelena Greco MD NRBC Automated 0.0 per 100 WBC Normal 0.0 [facility] Comment on above: Performed By: #### F EBC #### [address] [address] E Business Specialist: Osvaldo Santamaria MD #### CBC, CP #### [address] [place] [place] [address] E Business Specialist: Yelena Greco MD Platelet mean volume (Bld) [Entitic vol] 8.5 fL Normal 8.1-13.5 [facility] Comment on above: Performed By: #### F EBC #### [address] [id number] E Business Specialist: Osvaldo Santamaria MD #### CBC, CP #### [address] [place] [address] [place] [address] E Business Specialist: Yelena Greco MD Platelets (Bld) [#/Vol] 309 10*3/uL Normal 138-453 [facility] Comment on above: Performed By: #### F EBC #### [address] [address] E Business Specialist: Osvaldo Santamaria MD #### CBC, CP #### [address] [place] [address] [place] [address] E Business Specialist: Yelena Greco MD RBC (Bld) [#/Vol] 4.53 10*6/uL Normal 3.95-5.11 [facility] Comment on above: Performed By: #### F EBC #### [address] [address] E Business Specialist: Osvaldo Santamaria MD #### CBC, CP #### [address] [place] [address] [place] [address] E Business Specialist: Yelena Greco MD WBC (Bld) [#/Vol] 6.5 10*3/uL Normal 3.5-11.3 [facility] Comment on above: Performed By: #### F EBC #### [address] [address] E Business Specialist: Osvaldo Santamaria MD #### CBC, CP #### [address] [place] [place] [address] E Business Specialist: Yelena Greco MD Comp Metabolic Profon 2023 Albumin [Mass/Vol] 4.5 g/dL Normal 3.5-5.2 [facility] Comment on above: Performed By: #### F EBC #### [address] [address] E Business Specialist: Osvaldo Santamaria MD #### CBC, CP #### [facility] [address] [place], [place] [id number] E Business Specialist: Yelena Greco MD Albumin/Glob Ratio 1.5 Normal 1.0-2.5 [facility] Comment on above: Performed By: #### F EBC #### [address] [address] E Business Specialist: Osvaldo Santamaria MD #### CBC, CP #### [facility] [address] [place] [place] [address] E Business Specialist: Yelena Greco MD Alkaline Phos 74 U/L Normal 35-104 [facility] Comment on above: Performed By: #### F EBC #### [address] [address] E Business Specialist: Osvaldo Santamaria MD #### CBC, CP #### [facility] [address] [place] [address] [place] [place], [place] [id number] E Business Specialist: Yelena Greco MD ALT [Catalytic activity/Vol] 61 U/L High 5-33 [facility] Comment on above: Performed By: #### F EBC #### [address] [address] E Business Specialist: Osvaldo Santamaria MD #### CBC, CP #### [facility] [address] [place], [place] [id number] E Business Specialist: Yelena Greco MD Anion gap [Moles/Vol] 8 mmol/L Low 9-17 [facility] Comment on above: Performed By: #### F EBC #### [address] [address] E Business Specialist: Osvaldo Santamaria MD #### CBC, CP #### [facility] [address] [place], [place] [id number] E Business Specialist: Yelena Greco MD AST [Catalytic activity/Vol] 43 U/L High <32 [facility] Comment on above: Performed By: #### F EBC #### [facility] [address] [place] [address] E Business Specialist: Osvaldo Santamaria MD #### CBC, CP #### [facility] [address] [place] [address] [place] [place], [place] [id number] E Business Specialist: Yelena Greco MD Bilirubin [Mass/Vol] 0.2 mg/dL Low 0.3-1.2 [facility] Comment on above: Performed By: #### F EBC #### [address] [address] E Business Specialist: Osvaldo Santamaria MD #### CBC, CP #### [address] [place], [place] 5643983 E Business Specialist: Yelena Greco MD BUN/CRE Ratio 20 Normal 9-20 [facility] Comment on above: Performed By: #### F EBC #### [address] [address] E Business Specialist: Osvaldo Santamaria MD #### CBC, CP #### [address] [place], [place] 4645183 E Business Specialist: Yelena Greco MD Calcium [Mass/Vol] 9.4 mg/dL Normal 8.6-10.4 [facility] Comment on above: Performed By: #### F EBC #### [address] [address] E Business Specialist: Osvaldo Santamaria MD #### CBC, CP #### [address] [place], [place] [phone] E Business Specialist: Yelena Greco MD Chloride [Moles/Vol] 100 mmol/L Normal 98-107 [facility] Comment on above: Performed By: #### F EBC #### [facility] [address] [place], [place] [id number] E Business Specialist: Osvaldo Santamaria MD #### CBC, CP #### [facility] [address] [place] [address] E Business Specialist: Yelena Greco MD CO2 [Moles/Vol] 28 mmol/L Normal 20-31 [facility] Comment on above: Performed By: #### F EBC #### [facility] [address] [place] [address] E Business Specialist: Osvaldo Santamaria MD #### CBC, CP #### [facility] [address] [place] [address] E Business Specialist: Yelena Greco MD Creatinine [Mass/Vol] 0.6 mg/dL Normal 0.5-0.9 [facility] Comment on above: Performed By: #### F EBC #### [facility] [address] [place] [address] E Business Specialist: Osvaldo Santamaria MD #### CBC, CP #### [facility] [address] [place] [address] E Business Specialist: Yelena Greco MD GFR/1.73 sq M.predicted among non-blacks MDRD (S/P/Bld) [Vol rate/Area] mL/min/{1.73_m2} Normal >60 [facility] Comment on above: Result Comment: These [...] secretion. Performed By: #### F EBC #### [address] [address] E Business Specialist: Osvaldo Santamaria MD #### CBC, CP #### [address] [place], [place] 5242783 E Business Specialist: Yelena Greco MD Glucose [Mass/Vol] 91 mg/dL Normal 70-99 [facility] Comment on above: Performed By: #### F EBC #### [address] [address] E Business Specialist: Osvaldo Santamaria MD #### CBC, CP #### [address] [place], [place] [id number] E Business Specialist: Yelena Greco MD Potassium [Moles/Vol] 4.2 mmol/L Normal 3.7-5.3 [facility] Comment on above: Performed By: #### F EBC #### [address] [address] E Business Specialist: Osvaldo Santamaria MD #### CBC, CP #### [address] [place], [place] [id number] E Business Specialist: Yelena Greco MD Protein [Mass/Vol] 7.6 g/dL Normal 6.4-8.3 [facility] Comment on above: Performed By: #### F EBC #### [address] [address] E Business Specialist: Osvaldo Santamaria MD #### CBC, CP #### [address] [place], [place] [id number] E Business Specialist: Yelena Greco MD Sodium [Moles/Vol] 136 mmol/L Normal 135-144 [facility] Comment on above: Performed By: #### F EBC #### [address] [address] E Business Specialist: Osvaldo Santamaria MD #### CBC, CP #### [facility] [address] [place] [address] [place] [address] E Business Specialist: Yelena Greco MD Urea nitrogen [Mass/Vol] 12 mg/dL Normal 6-20 [facility] Comment on above: Performed By: #### F EBC #### [address] [address] E Business Specialist: Osvaldo Santamaria MD #### CBC, CP #### [facility] [address] [place] [address] [place] [address] E Business Specialist: Yelena Greco MD Iron Binding Cap.on 02-16-20 24 % Fe Saturation 25 % Normal 20-55 [facility] Comment on above: Performed By: #### F EBC #### [address] [address] E Business Specialist: Osvaldo Santamaria MD #### CBC, CP #### [address] [place] [place] [address] E Business Specialist: Yelena Greco MD Iron [Mass/Vol] 92 ug/dL Normal 37-145 [facility] Comment on above: Performed By: #### F EBC #### [address] [address] E Business Specialist: Osvaldo Santamaria MD #### CBC, CP #### [facility] [address] [place], [place] 8902283 E Business Specialist: Yelena Greco MD Total Fe Binding Cap 373 ug/dL Normal 250-450 [facility] Comment on above: Performed By: #### F EBC #### [address] [address] E Business Specialist: Osvaldo Santamaria MD #### CBC, CP #### [facility] [address] [place], [place] [id number] E Business Specialist: Yelena Greco MD Unbound Fe Bind Cap 281 ug/dL Normal 112-347 [facility] Comment on above: Performed By: #### F EBC #### [facility] [address] [place] [address] E Business Specialist: Osvaldo Santamaria MD #### CBC, CP #### [facility] [address] [place], [place] 0109383 E Business Specialist: Yelena Greco MD Lipid Profileon 02-16-2024 Cholesterol [Mass/Vol] 245 mg/dL High 0-199 [facility] Comment on above: Result Comment: Cholesterol Guidelines: <200 Desirable 200-240 Borderline >240 Undesirable Performed By: #### L IPR #### [address] [address] E Business Specialist: Osvaldo Santamaria MD Cholesterol in HDL [Mass/Vol] 34 mg/dL Low >40 [facility] Comment on above: Result Comment: HDL Guidelines: <40 Undesirable 40-59 Borderline >59 Desirable Performed By: #### L IPR #### [address] [address] E Business Specialist: Osvaldo Santamaria MD Cholesterol in LDL [Mass/Vol] 159 mg/dL High 0-100 [facility] Comment on above: Result Comment: LDL Guidelines: <100 Desirable 100-129 Near to/above Desirable 130-159 Borderline >159 Undesirable Direct (measured) LDL and calculated LDL are not interchangeable tests. Performed By: #### L IPR #### [facility] [address] [place] [address] E Business Specialist: Osvaldo Santamaria MD Cholesterol in VLDL [Mass/Vol] 52 mg/dL Normal [facility] Comment on above: Performed By: #### L IPR #### [address] [place] [address] E Business Specialist: Osvaldo Santamaria MD Cholesterol.total/Ch olesterol in HDL [Mass ratio] 7.0 {ratio} Normal [facility] Comment on above: Performed By: #### L IPR #### [facility] [address] [place], [place] [id number] E Business Specialist: Osvaldo Santamaria MD Triglyceride [Mass/Vol] 259 mg/dL High <150 [facility] Comment on above: Result Comment: Triglyceride Guidelines: <150 Desirable 150-199 Borderline 200-499 High >499 Very high Based on AHA Guidelines for fasting triglyceride, April 2012. Performed By: #### L IPR #### [facility] [address] [place] [address] E Business Specialist: Osvaldo Santamaria MD Office Visiton 07-11-2023 Follow-up visit [id number] Vinny Downey 2000 Provider Department Center 07/11/2023 241-RAJENDRA SHEFFIELD SAMSON Mccormick Family History Problem Relation Age of Onset Anemia Mother Supraventricular tachycardia Father Hyperlipidemia Father Diabetes Sister Family Status - Relation Status Age at Mother Father Sister Level of Service:[address] [place] OFFICE/OUTPATIENT NEW MODERATE MDM 45 MINUTES Normal [facility] Office Visiton 03-20-2023 Follow-up visit [id number] Vinny Downey 2000 Provider Department Center 03/20/2023 ISRAEL ULLOA SAMSON Mccormick Family History Problem Relation Age of Onset Anemia Mother Supraventricular tachycardia Father Hyperlipidemia Father Diabetes Sister Family Status - Relation Status Age at Mother Father Sister Level of Service:[id number] [place] OFFICE/OUTPATIENT NEW LOW MDM 30-44 MINUTES Normal [facility] US PREG BIOPHY W NON [...] YELENA CARLOS Date: 2022-12-20 07:03 Normal [facility] US PREG PLACENTAon US PREG PLACENTA EXAMINATION: [...] ALFREDO GRANT Date: 2022-12-12 14:56 Normal [facility] US PREG BIOPHY W [...] LUIS ALFREDO GRANT Date: 2022-12-11 04:08 Normal [facility] US PREG GROWTHon 12-11-2022 US PREG GROWTH [...] ALFREDO GRANT Date: 2022-12-11 04:06 Normal [facility] GTT 3 HR PREGon 10-22-2022 Glucose [Mass/Vol] 98 mg/dL Normal 74-106 [facility] Comment on above: Performed By: #### G TT3P #### [facility] [address] [place] [address] Dr. Emilee Springer Glucose [Mass/Vol] 170 mg/dL Normal [facility] Comment on above: Performed By: #### G TT3P #### [facility] [address] [place] [address] Dr. Emilee Springer Glucose [Mass/Vol] 201 mg/dL Normal [facility] Comment on above: Performed By: #### G TT3P #### [facility] [address] [place] [address] Dr. Emilee Springer Glucose [Mass/Vol] 115 mg/dL Normal [facility] Comment on above: Performed By: #### G TT3P #### [facility] [address] [place] [address] Dr. Emilee Springer US PREG INCOMPLETE ANATOMYon [...] YELENA CARLOS Date: 2022-10-16 08:44 Normal [facility] CBC AUTO DIFFon 10-15-2022 BASO # 0.0 103/ul Normal 0.0-0.1 [facility] Comment on above: Performed By: #### C BC #### [facility] [address] [place] [address] Dr. Emilee Springer Basophils/100 WBC (Bld) 0.2 % Normal 0.2-2.0 [facility] Comment on above: Performed By: #### C BC #### [facility] [address] [place] [address] Dr. Emilee Springer EO # 0.1 103/ul Normal 0.0-0.7 [facility] Comment on above: Performed By: #### C BC #### [facility] [address] [place] [address] Dr. Emilee Springer Eosinophils/100 WBC (Bld) 0.8 % Critically low 0.9-7.0 [facility] Comment on above: Performed By: #### C BC #### [facility] [address] [place] [address] Dr. Emilee Springer Erythrocyte distribution width (RBC) [Ratio] 12.5 % Normal 11.0-15.0 [facility] Comment on above: Performed By: #### C BC #### [facility] [address] [place] [address] Dr. Emilee Springer Hematocrit (Bld) [Volume fraction] 29.8 % Critically low 36.0-48.0 [facility] Comment on above: Performed By: #### C BC #### [facility] [address] [place] [address] Dr. Emilee Springer Hemoglobin (Bld) [Mass/Vol] 10.0 g/dL Critically low 12.0-16.0 [facility] Comment on above: Performed By: #### C BC #### [facility] [address] [place] [address] Dr. Emilee Springer IG # 0.05 10e3/ul Critically high 0.00-0.03 [facility] Comment on above: Performed By: #### C BC #### [facility] [address] [place] [address] Dr. Emilee Springer IG % 0.5 % Normal 0.0-0.5 [facility] Comment on above: Performed By: #### C BC #### [facility] [address] [place] [address] Dr. Emilee Springer LYMPH # 1.6 103/ul Normal 1.2-3.8 [facility] Comment on above: Performed By: #### C BC #### [facility] [address] [place] [address] Dr. Emilee Springer Lymphocytes/100 WBC (Bld) 15.3 % Critically low 20.5-60.0 [facility] Comment on above: Performed By: #### C BC #### [facility] [address] [place] [address] Dr. Emilee Springer MANUAL DIFF REQ NO Normal [facility] Comment on above: Performed By: #### C BC #### [facility] Laboratory [address] [place] [address] Dr. Emilee Springer MCH (RBC) [Entitic mass] 30.2 pg Normal 26.7-34.0 [facility] Comment on above: Performed By: #### C BC #### [facility] Laboratory [address] [place] [address] Dr. Emilee Springer MCHC (RBC) [Mass/Vol] 33.6 g/dL Normal 29.9-35.2 [facility] Comment on above: Performed By: #### C BC #### [facility] Laboratory [address] [place] [address] Dr. Emilee Springer MCV (RBC) [Entitic vol] 90.0 fL Normal 81.0-99.0 [facility] Comment on above: Performed By: #### C BC #### [facility] Laboratory [address] [place] [address] Dr. Emilee Springer MONO # 0.6 103/ul Normal 0.3-0.8 [facility] Comment on above: Performed By: #### C BC #### [facility] Laboratory [address] [place] [address] Dr. Emilee Springer Monocytes/100 WBC (Bld) 5.8 % Normal 1.7-12.0 [facility] Comment on above: Performed By: #### C BC #### [facility] Laboratory [address] [address] [address] Emilee Springer NEUT # 8.2 103/ul Critically high 1.4-6.5 [facility] Comment on above: Performed By: #### C BC #### [facility] Laboratory [address] [place] [address] Dr. Emilee Springer Neutrophils/100 WBC (Bld) 77.4 % Critically high 43.0-75.0 [facility] Comment on above: Performed By: #### C BC #### [facility] Laboratory [address] [place] [address] Dr. Emilee Springer Platelet mean volume (Bld) [Entitic vol] 8.5 fL Critically low 9.5-13.5 [facility] Comment on above: Performed By: #### C BC #### [facility] Laboratory [address] [place] [address] Dr. Emilee Springer PLT 347 103/ul Normal 150-450 [facility] Comment on above: Performed By: #### C BC #### [facility] Laboratory [address] [place] [address] Dr. Emilee Springer RBC 3.31 106/ul Critically low 4.20-5.40 [facility] Comment on above: Performed By: #### C BC #### [facility] Laboratory [address] [place] [address] Dr. Emilee Springer WBC 10.6 103/ul Normal 4.0-11.0 [facility] Comment on above: Performed By: #### C BC #### [facility] Laboratory [address] [place] [address] Dr. Emilee Springer GLUCOSE - 1HRon 10-15-2022 Glucose [Mass/Vol] 176 mg/dL Critically high 74-106 [facility] Comment on above: Performed By: #### G LU1HR #### [facility] Laboratory [address] [place] [address] Dr. Emilee Springer CHLAMYDIA/GONOCOCCUS ANISA (SW AB/URINE/PAPon 09-15-2022 Chlamydia trachomatis, ANISA Negative Normal Negative [facility] Comment on above: Performed By: #### C BC #### [facility] Laboratory [address] [address] [address] Emilee Springer Neisseria gonorrhoeae, ANISA Negative Normal Negative [facility] Comment on above: Performed By: #### C BC #### [facility] Laboratory [address] [address] [address] Emilee Springer VAGINITIS/VAGINOSIS DNA PROB Leonid 09-14-2022 Ainsley species Negative Normal Negative [facility] Comment on above: Performed By: #### C BC #### [facility] Laboratory [address] [address] [address] Emilee Springer Gardnerella vaginalis Negative Normal Negative [facility] Comment on above: Performed By: #### C BC #### [facility] Laboratory [address] [address] [address] Emilee Springer Trichomonas vaginalis Negative Normal Negative [facility] Comment on above: Performed By: #### C BC #### [facility] Laboratory [address] [address] [address] Emilee Springer US PREG ANATOMY SINGLEon [...] ALFREDO GRANT Date: 2022-09-13 16:57 Normal [facility] AFP MATERNAL FOR SPINA BIFID Aon 08-31-2022 AFP MoM 0.42 Normal [facility] Comment on above: Performed By: #### A FPMAT #### [facility] Laboratory [address] [address] [address] Emilee Springer AFP Value 16.7 ng/mL Normal [facility] Comment on above: Performed By: #### A FPMAT #### [facility] Laboratory [address] [address] [address] Emilee Springer AFP, Serum for Spina Bifida Report Normal [facility] Comment on above: Performed By: #### A FPMAT #### [facility] Laboratory [address] [address] [address] Emilee Springer Comment Comment Normal [facility] Comment on above: Result Comment: Darío Machado, Ph.D., [facility] Director . References: Available Upon Request. . Multiples Of Median Cutoffs For AFP Elevations Berkowitz 2.5 Black 2.8 IDD 2.0 Twins 4.5 Abbreviation Definitions IDD - Insulin Dep Diabetes OSBR - Open Spina Bifida Risk . For further inquiries contact [employer] [facility] at [phone]. . This test was developed and its performance characteristics determined by [employer]. It has not been cleared or approved by the Food and Drug Administration. Performed By: #### A FPMAT #### [facility] Laboratory [address] [address] [address] Emilee Worrell Age Collection Date 18.6 weeks Normal [facility] Comment on above: Performed By: #### A FPMAT #### [facility] Laboratory [address] [address] [address] Emilee Springer Gestat, Age Based on JOCELIN [facility] Comment on above: Result Comment: 12/2022 Recalculations are not recommended when gestational dating by LMP and ultrasound are within 10 days. Performed By: #### A FPMAT #### [facility] Laboratory [address] [place] [address] Dr. Emilee Springer Insulin Dep Diabetes Comment Normal [facility] Comment on above: Result Comment: Not provided. . Performed By: #### A FPMAT #### [facility] Laboratory [address] [address] [address] Emilee Springer Interpretation Comment Normal [facility] Comment on above: Result Comment: Inte [...] Customer Services to discuss available options. The [employer] recommends amniocentesis be offered to women age 35 and older. Performed By: #### A FPMAT #### [facility] Laboratory [address] [place] [address] Dr. Emilee Springer [age] Normal [facility] Comment on above: Performed By: #### A FPMAT #### [facility] Laboratory [address] [place] [address] Dr. Emilee Springer Multiple Gestation Comment Normal [facility] Comment on above: Result Comment: Not provided. . Performed By: #### A FPMAT #### [facility] [address] [place] [address] Dr. Emilee Springer OSBR Risk 1 [place] [address] [facility] Comment on above: Performed By: #### A FPMAT #### [facility] Laboratory [address] [place] [address] Dr. Emilee Springer PDF . Normal [facility] Comment on above: Performed By: #### A FPMAT #### [facility] Laboratory [address] [place] [address] Dr. Emilee Springer Race Comment Normal [facility] Comment on above: Result Comment: Not provided. . Performed By: #### A FPMAT #### [facility] Laboratory [address] [place] [address] Dr. Emilee Springer Test Results: Negative Normal [facility] Comment on above: Performed By: #### A FPMAT #### [facility] Laboratory [address] [place] [address] Dr. Emilee Springer Rubella antibody, IgGon -0 Rubella virus IgG Ql (S) 314.5 IU/mL [facility] Comment on above: REFERENCE RANGE: <5.0 NON-REACTIVE (non-immune) 5.0 TO 9.9 EQUIVOCAL >=10.0 REACTIVE (immune) [facility] HEP B SURFACE ANTIGEN SCREEN on 07-05-2022 HBsAg Screen Negative Normal Negative [facility] Comment on above: Performed By: #### H BSANS #### [facility] Laboratory [address] [place] [address] Dr. Emilee Springer HEPATITIS C VIRUS AB W/ REFL EX QUANTon 07-05-2022 HCV AB <0.1 Normal 0.0-0.9 [facility] Comment on above: Performed By: #### H CVPCRR #### [facility] Laboratory [address] [place] [address] Dr. Emilee Springer Interpretation: Comment Normal [facility] Comment on above: Result Comment: Nega tive Not infected with HCV, unless recent infection is suspected or other evidence exists to indicate HCV infection. Performed By: #### H CVPCRR #### [facility] [address] [place] [address] Dr. Emilee Springer HIV 1 AND 2 WITH REFLEXon HIV Screen 4th Generation wRfx Non-Reactive Normal Non Reactive [facility] Comment on above: Result Comment: HIV Negative HIV-1/HIV-2 antibodies and HIV-1 p24 antigen were NOT detected. There is no laboratory evidence of HIV infection. Performed By: #### C BC #### [facility] Laboratory [address] [place] [address] Dr. Emilee Springer RPR QUANTon 07-05-2022 Rapid Plasma Reagin, Quant Non-Reactive Normal NonRea<1:1 [facility] Comment on above: Result Comment: Calvin wilson Note: This test does not meet current guidelines for screening and diagnosis of syphilis. This test is intended for following treatment response in patients being treated for syphilis infection. To screen for syphilis infection, a reflex cascade that includes both RPR and a treponema-specific assay should be utilized, such as Treponema pallidum (Syphilis) Screening [place] (871519) or Rapid Plasma Reagin (RPR) Test With Reflex to Quantitative RPR and Confirmatory Treponema pallidum Antibodies (694461). Performed By: #### C BC #### [facility] Laboratory [address] [place] [address] Dr. Emilee Springer RUBELLA AB IGGon 07-05-2022 Rubella Antibodies, IgG 5.03 index Normal Immune >0.99 [facility] Comment on above: Result Comment: Non- immune <0.90 Equivocal 0.90 - 0.99 Immune >0.99 Performed By: #### R UBIGG #### [facility] Laboratory [address] [place] [address] Dr. Emilee Springer CBC AUTO DIFFon 07-04-2022 BASO # 0.0 103/ul Normal 0.0-0.1 [facility] Comment on above: Performed By: #### G LU1HR #### [facility] Laboratory [address] [place] [address] Dr. Emilee Springer Basophils/100 WBC (Bld) 0.2 % Normal 0.2-2.0 [facility] Comment on above: Performed By: #### G LU1HR #### [facility] Laboratory [address] [place] [address] Dr. Emilee Springer EO # 0.1 103/ul Normal 0.0-0.7 [facility] Comment on above: Performed By: #### G LU1HR #### [facility] Laboratory [address] [place] [address] Dr. Emilee Springer Eosinophils/100 WBC (Bld) 0.9 % Normal 0.9-7.0 [facility] Comment on above: Performed By: #### G LU1HR #### [facility] [address] [place] [address] Dr. Emilee Springer Erythrocyte distribution width (RBC) [Ratio] 11.9 % Normal 11.0-15.0 [facility] Comment on above: Performed By: #### G LU1HR #### [facility] Laboratory [address] [place] [address] Dr. Emilee Springer Hematocrit (Bld) [Volume fraction] 32.9 % Critically low 36.0-48.0 [facility] Comment on above: Performed By: #### G LU1HR #### [facility] [address] [place] [address] Dr. Emilee Springer Hemoglobin (Bld) [Mass/Vol] 11.6 g/dL Critically low 12.0-16.0 [facility] Comment on above: Performed By: #### G LU1HR #### [facility] Laboratory [address] [place] [address] Dr. Emilee Springer IG # 0.03 10e3/ul Normal 0.00-0.03 [facility] Comment on above: Performed By: #### G LU1HR #### [facility] Laboratory [address] [place] [address] Dr. Emilee Springer IG % 0.3 % Normal 0.0-0.5 [facility] Comment on above: Performed By: #### G LU1HR #### [facility] Laboratory [address] [place] [address] Dr. Emilee Springer LYMPH # 2.1 103/ul Normal 1.2-3.8 [facility] Comment on above: Performed By: #### G LU1HR #### [facility] Laboratory [address] [place] [address] Dr. Emilee Springer Lymphocytes/100 WBC (Bld) 20.2 % Critically low 20.5-60.0 [facility] Comment on above: Performed By: #### G LU1HR #### [facility] Laboratory [address] [place] [address] Dr. Emilee Springer MANUAL DIFF REQ NO Normal [facility] Comment on above: Performed By: #### G LU1HR #### [facility] Laboratory [address] [place] [address] Dr. Emilee Springer MCH (RBC) [Entitic mass] 31.4 pg Normal 26.7-34.0 [facility] Comment on above: Performed By: #### G LU1HR #### [facility] [address] [place] [address] Dr. Emilee Springer MCHC (RBC) [Mass/Vol] 35.3 g/dL Critically high 29.9-35.2 [facility] Comment on above: Performed By: #### G LU1HR #### [facility] Laboratory [address] [place] [address] Dr. Emilee Springer MCV (RBC) [Entitic vol] 89.2 fL Normal 81.0-99.0 [facility] Comment on above: Performed By: #### G LU1HR #### [facility] Laboratory [address] [place] [address] Dr. Emilee Springer MONO # 0.7 103/ul Normal 0.3-0.8 [facility] Comment on above: Performed By: #### G LU1HR #### [facility] Laboratory [address] [place] [address] Dr. Emilee Springer Monocytes/100 WBC (Bld) 7.0 % Normal 1.7-12.0 [facility] Comment on above: Performed By: #### G LU1HR #### [facility] Laboratory [address] [place] [address] Dr. Emilee Springer NEUT # 7.5 103/ul Critically high 1.4-6.5 [facility] Comment on above: Performed By: #### G LU1HR #### [facility] Laboratory [address] [place] [address] Dr. Emilee Springer Neutrophils/100 WBC (Bld) 71.4 % Normal 43.0-75.0 [facility] Comment on above: Performed By: #### G LU1HR #### [facility] Laboratory [address] [address] [address] Emilee Springer Platelet mean volume (Bld) [Entitic vol] 9.1 fL Critically low 9.5-13.5 [facility] Comment on above: Performed By: #### G LU1HR #### [facility] Laboratory [address] [address] [address] Emilee Springer PLT 311 103/ul Normal 150-450 [facility] Comment on above: Performed By: #### G LU1HR #### [facility] Laboratory [address] [address] [address] Emilee Springer RBC 3.69 106/ul Critically low 4.20-5.40 [facility] Comment on above: Performed By: #### G LU1HR #### [facility] Laboratory [address] [address] [address] Emilee Springer WBC 10.5 103/ul Normal 4.0-11.0 [facility] Comment on above: Performed By: #### G LU1HR #### [facility] Laboratory [address] [place] [address] Dr. Emilee Springer CULTURE URINEon 07-04-2022 CULTURE URINE Culture Observations: LIGHT GROWTH OF MIXED GENITAL BREN. NO POTENTIAL PATHOGENS SEEN. Normal [facility] Comment on above: Performed By: #### G LU1HR #### [facility] Laboratory [address] [address] [address] Emilee Springer GLYCOHEMOGLOBIN A1Con 2021 ADA RECOMMENDATION SEE BELOW Normal [facility] Comment on above: Result Comment: ADA RECOMMENDED LIMIT 4.0 - 6.0 ADA THERAPEUTIC TARGET < 7.0 ACTION SUGGESTED > 7.0 Performed By: #### A 1C #### [facility] Laboratory [address] [address] [address] Emilee Springer Glucose [Mass/Vol] 108 mg/dL Normal [facility] Comment on above: Performed By: #### A 1C #### [facility] Laboratory [address] [place] [address] Dr. Emilee Springer HbA1c (Bld) [Mass fraction] 5.4 % Normal 4.5-6.2 [facility] Comment on above: Performed By: #### A 1C #### [facility] [address] [address] [address] Emilee Springer ALLEN BOX TEST PT SEND OUTo n 07-04-2022 SENT TO REF LAB 07/04/2022 Normal [facility] Comment on above: Performed By: #### N BOX #### [facility] [address] [address] [address] Emilee Springer TYPE AND SCREENon 07-04-2022 TYPE AND SCREEN Negative Normal [facility] Comment on above: Performed By: #### G LU1HR #### [facility] [address] [address] [address] Emilee Springer US PREG TVon 06-23-2022 [...] by: YELENA CARLOS Date: 2022-06-23 17:00 Normal [facility] HCG, Quantitative, on 06-02-2022 hCG Quant [id number] High NINF [facility] Comment on above: Non-preg premeno <=5 Postmeno <=8 Male <=3 If HCG results do not concur with clinical observations, additional testing to confirm results is recommended. Interpretation and review of laboratory results Abnormal [facility] PAP ACOG PANEL 2: 21 to 29on 04-24-2022 . . Normal [facility] Comment on above: Performed By: #### [id number] #### [facility] Laboratory [address] [address] [address] Emilee Springer Age Gdln ACOG Testing 21-29 Normal [facility] Comment on above: Performed By: #### [id number] #### [facility] Laboratory [address] [place] [address] Dr. Emilee Springer DIAGNOSIS: Comment Normal [facility] Comment on above: Result Comment: NEGA TIVE FOR INTRAEPITHELIAL LESION OR MALIGNANCY. CELLULAR CHANGES ASSOCIATED WITH INFLAMMATION ARE PRESENT. Performed By: #### 4 [id number] #### [facility] Laboratory [address] [place] [address] Dr. Emilee Springer Methodology: Comment Normal [facility] Comment on above: Result Comment: This liquid based ThinPrep(R) pap test was screened with the use of an image guided system. Performed By: #### [id number] #### [facility] Laboratory [address] [place] [address] Dr. Emilee Springer Note: Comment Normal [facility] Comment on above: Result Comment: The Pap smear is a screening test designed to aid in the detection of premalignant and malignant conditions of the uterine cervix. It is not a diagnostic procedure and should not be used as the sole means of detecting cervical cancer. Both false-positive and false-negative reports do occur. . Performed By: #### [id number] #### [facility] [address] [place] [address] Dr. Emilee Springer Performed by: Comment Normal [facility] Comment on above: Result Comment: Maynor Adams, Care Connector Performed By: #### 4 [id number] #### [facility] Laboratory [address] [place] [address] Dr. Emilee Springer Reflex Criteria: Comment Normal [facility] Comment on above: Result Comment: The HPV DNA reflex criteria were not met with this specimen result therefore, no HPV testing was performed. . Performed By: #### [id number] #### [facility] Laboratory [address] [place] [address] Dr. Emilee Springer Specimen adequacy: Comment Normal [facility] Comment on above: Result Comment: Sati sfactory for evaluation. Endocervical and/or squamous metaplastic cells (endocervical component) are present. Performed By: #### 4 [id number] #### [facility] [address] [place] [address] Dr. Emilee Springer HCG, Quantitative, on 08-10-2021 hCG Quant 45 High <5 IU/L [facility] Comment on above: Non-preg premeno <=5 Postmeno <=8 Male <=3 If HCG results do not concur with clinical observations, additional testing to confirm results is recommended. Elevated results not associated with may be found in patients with other diseases such as tumors of the germ cells (testis, ovaries, etc.), bladder, pancreas, stomach, lungs, and liver. Interpretation and review of laboratory results Abnormal [employer] US RENAL COMPLETEOrdered By: Lorena Ricks on 11-25-2020 Unremarkable ultrasound of the kidneys and urinary bladder. [facility] Phone: EXAMINATION: RETROPERITONEAL ULTRASOUND OF THE KIDNEYS AND URINARY BLADDER 11/25/2020 COMPARISON: None HISTORY: ORDERING SYSTEM PROVIDED HISTORY: Frequent UTI TECHNOLOGIST PROVIDED HISTORY: This procedure can be scheduled via [employer]. Access your [employer] account by visiting [employer]. FINDINGS: Kidneys: The right kidney measures 11.1 cm in length and the left kidney measures 11.6 cm in length. Kidneys demonstrate normal cortical echogenicity. No evidence of hydronephrosis or intrarenal stones. Bladder: Unremarkable appearance of the bladder. No significant post void residual. [facility] Phone: [place], pn Incoming Radiant Results From [employer] - 11/25/2020 3:59 PM EDT EXAMINATION: RETROPERITONEAL ULTRASOUND OF THE KIDNEYS AND URINARY BLADDER 11/25/2020 COMPARISON: None HISTORY: ORDERING SYSTEM PROVIDED HISTORY: Frequent UTI TECHNOLOGIST PROVIDED HISTORY: This procedure can be scheduled via [employer]. Access your [facility] account by visiting [employer]. FINDINGS: Kidneys: The right kidney measures 11.1 cm in length and the left kidney measures 11.6 cm in length. Kidneys demonstrate normal cortical echogenicity. No evidence of hydronephrosis or intrarenal stones. Bladder: Unremarkable appearance of the bladder. No significant post void residual. IMPRESSION: Unremarkable ultrasound of the kidneys and urinary bladder. [employer] Phone: Formson 10-14-2020 Forms [id number] 1.00CD:127 Normal [facility] Ambulatory Clinical Summaryo n 10-13-2020 Ambulatory Clinical Summary {[id number] Normal [facility] General Surgery Office/Clini c Noteon 10-13-2020 General Surgery Office/Clinic Note Chief Complaint post operative follow up HPI Staff 8 day post operative follow up post lap appendectomy completed while in-patient at [facility]. Doing well. Minimal discomfort. [...] available Patient Education Exercise to Lose Weight, Feyw-yp-Zkjh Problem List/Past Medical History Ongoing Acute appendicitis [...] Family History Family history is negative Normal [facility] Comment on above: Result Comment: Elec tronically [...] Document Reviewed: 08/12/2011 ExitCare? Patient Information ?2014 [employer]. [facility] Provider Letter FTMCon 10-13 Provider [place] [facility] [place] 13, 2020 VINNY VERMA [address] [facility] [facility] [address] [place] [address] VINNY VERMA 2000 To Whom It May Concern, Please excuse above patient from work 10/14/20. Sincerely, Dr. Sushant Lott MD General Surgery Normal [facility] Pathology Noteon 10-08-2020 Pathology Note [id number] #1.00CD:[address] [facility] Facesheeton 10-07-2020 Facesheet [id number]#1.00CD:127 Normal [facility] Operative Reporton 03-17-202 1 Operative Report [id number]# 1.00CD:127 Normal [facility] HIV Screenon 05-05-2020 HIV Ag/Ab NONREACTIVE NONREACTIVE [place], [place] Comment on above: No laboratory eviden ce of HIV infection. If acute HIV infection is suspected, consider testing for HIV-1 RNA. Basic Metabolic Panelon 04-23 Anion gap [Moles/Vol] 11 mmol/L 9 - 17 mmol/L [place] Bun/Cre Ratio 19 [place], [place] Calcium [Mass/Vol] 9.3 mg/dL 8.6 - 10. 4 mg/dL [place] Chloride [Moles/Vol] 103 mmol/L 98 - 107 mmol/L [place] CO2 [Moles/Vol] 23 mmol/L 20 - 31 mmol/L [place] Creatinine [Mass/Vol] 0.57 mg/dL 0.5 - 0.9 mg/dL [place] GFR >60 >60 mL/min [place] GFR Non- >60 >60 mL/min [place] Glucose [Mass/Vol] 88 mg/dL 70 - 99 mg/dL [place] Potassium [Moles/Vol] 4.6 mmol/L 3.7 - 5.3 mmol/L [place] Sodium [Moles/Vol] 137 mmol/L 135 - 144 mmol/L [place] Urea nitrogen [Mass/Vol] 11 mg/dL 6 - 20 mg/dL [place] CBCon 05-04-2020 Erythrocyte distribution width (RBC) [Ratio] 11.7 % Low 11.8 - 14.4 % [place] Hematocrit (Bld) [Volume fraction] 36.4 % 36.3 - 47.1 % [place] Hemoglobin (Bld) [Mass/Vol] 12.2 g/dL 11.9 - 15.1 g/dL [place] Interpretation and review of laboratory results Abnormal [place] MCH (RBC) [Entitic mass] 31.4 pg 25.2 - 33.5 pg [place] MCHC (RBC) [Mass/Vol] 33.5 g/dL 28.4 - 34.8 g/dL [place] MCV (RBC) [Entitic vol] 93.8 fL 82.6 - 102.9 fL [place] Platelet mean volume (Bld) [Entitic vol] 9.2 fL 8.1 - 13.5 fL [place] Platelets (Bld) [#/Vol] 307 10*3/uL [place] RBC (Bld) [#/Vol] 3.88 10*6/uL Low 3.95 - 5.1 1 m/uL [place] WBC (Bld) [#/Vol] 7.2 10*3/uL [place] WBC (Bld) [#/Vol] 0.0 10*3/uL 0.0 per 100 WBC M [place], [place] Metabolic Panelon 05-04-2020 GFR/1.73 sq M predicted among non-blacks MDRD (S/P/Bld) [Vol rate/Area] [place] Comment on above: Stage 1: Some [...] body mass. Additional eGFR calculator available at: http://www.[employer]attlefy.Timehop/multiple_crcl_2012.htm TSHon 05-04-2020 TSH Qn 2.22 m[IU]/L [place] Vital Signs Date Time Vital Sign Value Performing Clinician Facility 04-30-2025 15:110 Body mass index (BMI) [Ratio] 36.7 kg/m2 Ceasar Li NP Work Phone: [facility] 04-30-2025 15:11-0400 Body weight 103.15 kg Ceasar Limonly LONG DISTANCE BILLING OPERATOR Work Phone: [facility] 04-30-2025 15:11-0400 Diastolic blood pressure 70 mm[Hg] Ceasar Millererly LONG DISTANCE BILLING OPERATOR Work Phone: [facility] 04-30-2025 15:11-0400 Systolic blood pressure 110 mm[Hg] Ceasar Limonly LONG DISTANCE BILLING OPERATOR Work Phone: [facility] 04-14-2025 15:50-0400 Body mass index (BMI) [Ratio] 36.64 kg/m2 Virgil Oralia PA Work Phone: [facility] 04-14-2025 15:50-0400 Body weight 102.97 kg Virgil Penasco PA Work Phone: [facility] 04-14-2025 15:50-0400 Diastolic blood pressure 60 mm[Hg] Virgil Penasco PA Work Phone: [facility] 04-14-2025 15:50-0400 Systolic blood pressure 110 mm[Hg] Virgil Oralia PA Work Phone: [facility] 04-03-2025 15:44-0400 Body mass index (BMI) [Ratio] 36.61 kg/m2 Virgil Penasco PA Work Phone: [facility] 04-03-2025 15:44-0400 Body weight 102.88 kg Virgil Penasco PA Work Phone: [facility] 04-03-2025 15:44-0400 Diastolic blood pressure 70 mm[Hg] Virgil Oralia PA Work Phone: [facility] 04-03-2025 15:44-0400 Systolic blood pressure 120 mm[Hg] Virgil Oralia PA Work Phone: [facility] 03-12-2025 16:08-0400 Body mass index (BMI) [Ratio] 36.12 kg/m2 Mukul Law DO Work Phone: [facility] 03-12-2025 16:08-0400 Body weight 101.52 kg Mukul Law DO Work Phone: [facility] 03-12-2025 16:08-0400 Diastolic blood pressure 70 mm[Hg] Mukul Law DO Work Phone: [facility] 03-12-2025 16:08-0400 Systolic blood pressure 100 mm[Hg] Mukul Law DO Work Phone: [facility] 02-26-2025 15:58-0400 Body mass index (BMI) [Ratio] 35.96 kg/m2 Mukul Law DO Work Phone: [facility] 02-26-2025 15:58-0400 Body weight 101.06 kg Mukul Law DO Work Phone: [facility] 02-26-2025 15:58-0400 Diastolic blood pressure 70 mm[Hg] Mukul Law DO Work Phone: [facility] 02-26-2025 15:58-0400 Systolic blood pressure 110 mm[Hg] Mukul Law DO Work Phone: [facility] 02-11-2025 14:06-0400 Body mass index (BMI) [Ratio] 34.99 kg/m2 Mukul Law DO Work Phone: [facility] 02-11-2025 14:06-0400 Body weight 98.34 kg Mukul Law DO Work Phone: [facility] 02-11-2025 14:06-0400 Diastolic blood pressure 76 mm[Hg] Mukul Law DO Work Phone: [facility] 02-11-2025 14:06-0400 Systolic blood pressure 116 mm[Hg] Mukul Law DO Work Phone: [facility] 01-15-2025 16:41-0400 Body mass index (BMI) [Ratio] 34.19 kg/m2 Mukul Law DO Work Phone: [facility] 01-15-2025 16:41-0400 Body weight 96.07 kg Mukul Law DO Work Phone: [facility] 01-15-2025 16:41-0400 Diastolic blood pressure 72 mm[Hg] Mukul Law DO Work Phone: [facility] 01-15-2025 16:41-0400 Systolic blood pressure 118 mm[Hg] Mukul Law DO Work Phone: [facility] 12-18-2024 16:15-0400 Body mass index (BMI) [Ratio] 34.22 kg/m2 Mukul Law DO Work Phone: [facility] 12-18-2024 16:15-0400 Body weight 96.16 kg Mukul Law DO Work Phone: [facility] 12-18-2024 16:15-0400 Diastolic blood pressure 70 mm[Hg] Mukul Law DO Work Phone: [facility] 12-18-2024 16:15-0400 Systolic blood pressure 116 mm[Hg] Mukul Law DO Work Phone: [facility] 11-14-2024 15:15-0400 Body mass index (BMI) [Ratio] 33.57 kg/m2 Noms Nurse [facility] 11-14-2024 15:15-0400 Body weight 94.35 kg Nom Nurse [facility] 11-14-2024 15:15-0400 Diastolic blood pressure 74 mm[Hg] Nom Nurse [facility] 11-14-2024 15:15-0400 Systolic blood pressure 122 mm[Hg] Nom Nurse [facility] 07-15-2024 16:25-0500 Body mass index (BMI) [Ratio] 32.93 kg/m2 Mukul Law DO Work Phone: [facility] 07-15-2024 16:25-0500 Body weight 92.53 kg Mukul Law DO Work Phone: [facility] 08-31-2022 03:06-0500 Body weight 94.[address] MUKUL FOY . [facility] Comment on above: Performed By: #### AFPMAT #### [facility] Laboratory [address] [place] [address] Dr. Emilee Springer Encounters Encounter Date Encounter Type Care Provider Facility Start: 04-30-2025 End: 04-30-2025 ambulatory CEASAR LI Not Available Start: 04-30-2025 End: 04-30-2025 flow sheet Ceasar Li LONG DISTANCE BILLING OPERATOR Work Phone: [facility] Comment on above: Third trimester preg gunner ([facility]); 32 weeks gestation of ([facility]) Start: 04-30-2025 End: 04-30-2025 Bamboo flowsheet Ceasar Li LONG DISTANCE BILLING OPERATOR Work Phone: [facility] Start: 04-30-2025 End: 04-30-2025 Bamboo flowsheet Ceasar Li LONG DISTANCE BILLING OPERATOR Work Phone: [facility] Start: 04-30-2025 End: 04-30-2025 Clinisync Result Encounter Mukul Foy DO Work Phone: [facility] Unsolicited Start: 04-14-2025 End: 04-14-2025 ambulatory VIRGIL BARTON Not Available Start: 04-14-2025 End: 04-14-2025 flow sheet Virgil Barton PA Work Phone: [facility] Comment on above: Third trimester preg gunner ([facility]); 30 weeks gestation of ([facility]) Start: 04-14-2025 End: 04-14-2025 Bamboo flowsheet Virgil RUIZ Work Phone: [facility] Start: 04-14-2025 End: 04-14-2025 Bamboo flowsheet Virgil RUIZ Work Phone: [facility] Start: 04-05-2025 End: 04-05-2025 Clinisync Result Encounter Virgil RUIZ Work Phone: [facility] External Department Unsolicited Start: 04-05-2025 End: 04-05-2025 Clinisync Result Encounter Virgil RUIZ Work Phone: [facility] Unsolicited Start: 04-03-2025 End: 04-03-2025 ambulatory VIRGIL BARTON Not Available Start: 04-03-2025 End: 04-03-2025 flow sheet Virgil RUIZ Work Phone: [facility] [place] Comment on above: 28 weeks gestation o f ([facility]); Third trimester ([facility]); Dizziness; Gestational diabetes mellitus (GDM), antepartum, gestational diabetes method of control unspecified ([facility]); History of miscarriage; Anemia, unspecified type; UTI symptoms Start: 04-03-2025 End: 04-03-2025 Bamboo flowsheet Virgil RUIZ Work Phone: [facility] Start: 04-03-2025 End: 04-03-2025 Bamboo flowsheet Virgil RUIZ Work Phone: [facility] Start: 03-12-2025 End: 03-12-2025 ambulatory MUKUL LAW Not Available Start: 03-12-2025 End: 03-12-2025 flow sheet Mukul Law DO Work Phone: [facility] Comment on above: 25 weeks gestation o f ([facility]); Second trimester ([facility]); Gastroesophageal reflux disease without esophagitis Start: [...] on above: 23 weeks gestation o f ([facility]); Elevated blood sugar level; Gastroesophageal reflux disease without esophagitis Start: 02-26-2025 End: 02-26-2025 Bamboo flowsheet Mukul Law DO Work Phone: [facility] Start: 02-26-2025 End: 02-26-2025 Bamboo flowsheet Mukul Law DO Work Phone: [facility] Start: 02-11-2025 End: 02-11-2025 flow sheet Mukul Law DO Work Phone: [facility] Comment on above: Second trimester pre gnancy ([facility]); 20 weeks gestation of ([facility]) Start: 02-11-2025 End: 02-11-2025 ambulatory MUKUL LAW Not Available Start: 01-15-2025 End: 01-15-2025 ambulatory MUKUL LAW Not Available Start: 01-15-2025 End: 01-15-2025 flow sheet Mukul Law DO Work Phone: [facility] Comment on above: Second trimester pre gnancy ([facility]); 17 weeks gestation of ([facility]); Vaginal discharge; STD exposure; Screening, , for anatomic survey ([facility]); Gastroesophageal reflux in ([facility]); Gestational diabetes mellitus (GDM), antepartum, gestational diabetes method of control unspecified ([facility]) Start: 01-15-2025 End: 01-15-2025 Bamboo flowsheet Mukul Law DO Work Phone: [facility] Start: 01-15-2025 End: 01-17-2025 Bamboo flowsheet Mukul Law DO Work Phone: [facility] Start: 01-15-2025 End: 01-17-2025 External Result Encounter Virgil RUIZ Work Phone: [facility] Department Unsolicited Start: 01-07-2025 End: 01-07-2025 ambulatory YNES M RODRIGUEZ [facility] Start: 01-07-2025 End: 01-07-2025 Subsequent hospital visit by physician Ynes Rodriguez VENEER GRADER - CONDEMNATION ENGINEER Work Phone: [facility] Start: 12-23-2024 End: 12-23-2024 Clinisync Result Encounter Mukul Law DO Work Phone: [facility] Unsolicited Start: 12-23-2024 End: 12-23-2024 Clinisync Result Encounter Mukul Law DO Work Phone: [facility] Unsolicited Start: 12-20-2024 End: 12-22-2024 ambulatory YNES RODRIGUEZ [facility] Start: 12-20-2024 End: 12-22-2024 Subsequent hospital visit by physician [facility] Ultrasound Room [facility] Ultrasound Comment on above: Subchorionic hematom [...] Start: 05-20-2024 End: 05-20-2024 ambulatory [facility] Start: 05-20-2024 End: 05-20-2024 Subsequent hospital visit by physician Ynes Steele CNP Work Phone: [facility] Comment on above: Elevated liver enzym es; Mixed hyperlipidemia Start: 03-06-2024 End: 03-08-2024 ambulatory YNES [facility] Start: 02-16-2024 End: 02-16-2024 ambulatory YNES [facility] Start: 08-06-2023 End: 08-06-2023 ambulatory Facility:[facility] Start: 07-11-2023 End: 07-11-2023 ambulatory RAJENDRA SHEFFIELD [facility] Start: 03-20-2023 End: 03-20-2023 ambulatory ISRAEL [facility] Start: 12-17-2022 End: 12-17-[address] MUKUL [...] End: 08-01-2022 [facility] Start: 07-04-2022 End: 07-05-[address] MUKUL FOY . Facility:[facility] Start: 06-23-2022 End: 06-24-[address] YELENA CARLOS Facility:[facility] Start: 06-09-2022 End: 06-10-[address] MUKUL FOY . Facility:[facility] Start: 06-02-2022 End: 06-02-2022 Subsequent hospital visit by physician Ynes Steele CNP [facility] Phone[facility] Start: 04-18-2022 End: 04-18-[address] MUKUL FOY . Facility: Start: 09-23-2021 End: 09-27-2021 ambulatory BERTO LIVE [facility] Start: 09-08-2021 End: 09-12-2021 ambulatory MUKUL [facility] Start: 08-25-2021 End: 08-29-2021 ambulatory [facility] Start: 08-19-2021 End: 08-23-2021 ambulatory [facility] Start: 08-10-2021 End: 08-10-2021 Subsequent hospital visit by physician Ynes Steele CNP Work Phone: [facility] Comment on above: Amenorrhea Start: 11-25-2020 End: 11-27-2020 Subsequent hospital visit by physician [place] Ultrasound Room [facility] Radiology Comment on above: Frequent UTI [...] in Cervix by Cyto stain Ynes Rodriguez VENEER GRADER - CONDEMNATION ENGINEER Work Phone: Start: 05-20-2024 Lipid panel Ynes hess VENEER GRADER - CONDEMNATION ENGINEER Work Phone: Start: 05-20-2024 Comprehensive metabo lic panel Ynes Rodriguez VENEER GRADER - CONDEMNATION ENGINEER Work Phone: Start: 07-15-2023 Microscopic observat ion [Identifier] in Cervix by Cyto stain [facility] Start: 08-01-2022 Antibody rubella Fran Barroso VENEER GRADER - CONDEMNATION ENGINEER Work Phone: Start: 06-02-2022 Gonadotropin chorion ic quantitative Mukul Foy MD Work Phone: Start: 08-10-2021 Gonadotropin chorion ic quantitative Berto Live VENEER GRADER - CN Work Phone: Start: 11-25-2020 Us retroperitoneal r eal time w/image complete Lorena Ricks VENEER GRADER - CONDEMNATION ENGINEER Work Phone: Start: 05-04-2020 Antibody hiv-1&hiv-2 single result Ynes Rodriguez Work Phone: Start: 05-04-2020 Assay of thyroid sti mulating hormone tsh Ynes Rodriguez Work Phone: Start: 05-04-2020 Basic metabolic pane l calcium total Ynes Rodriguez Work Phone: Start: 05-04-2020 Blood count complete automated Ynes Rodriguez Work Phone: Start: 03-03-2020 Microscopic observat ion [Identifier] in Cervix by Cyto stain Ynes Rodriguez VENEER GRADER - CONDEMNATION ENGINEER Work Phone: Plan of Treatment Date Care Activity Detail Author Start: 07-15-2027 Screening for malign ant neoplasm of cervix Pap smear [facility] Start: 07-15-2026 Screening for malign ant neoplasm of cervix Pap smear [facility] Start: 08-07-2025 Depression Screen Depression Screen [facility] Start: 07-28-2025 End: 07-28-2025 Patient encounter procedure [facility] Start: 05-20-2025 Lipid panel Lipids [facility] Start: 05-14-2025 End: 05-14-2025 Patient encounter procedure 05/14/2025 2:50 PM EDT Routine DIANE SANTO [address] [place] [id number] Mukul Foy DO [address] [place] [address] [facility] Start: 05-14-2025 End: 05-14-2025 Patient encounter procedure 05/14/2025 11:40 AM EDT Office Visit [facility] [address] [place] [address] Dr [address] [place] [address] Ynes Rodriguez, VENEER GRADER - CONDEMNATION ENGINEER [address] [place], [place] [id number] 6 month f/u [facility] Comment on above: 6 month f/u Start: 04-30-2025 End: 04-30-2025 Patient encounter procedure 04/30/2025 3:00 PM EDT Routine [facility] [address] [place] [phone] Ceasar Li, ASHWIN [address] [place] [phone] [facility] Start: 04-14-2025 End: 04-14-2025 Patient encounter procedure 04/14/2025 3:20 PM EDT Routine [facility] [address] [place] [phone] Virgil Barton, PA [address] [place] [address] [facility] Start: 04-03-2025 End: 04-03-2025 Patient encounter procedure 04/03/2025 3:30 PM EDT Routine [facility] [address] [place] [phone] Virgil Barton, PA [address] [place] [address] [facility] Start: 04-03-2025 End: 04-03-2026 CBC W Auto Differential panel - Blood CBC and differential Lab Routine Dizziness Anemia, unspecified type Expected: 04/03/2025 (Approximate), Expires: 04/03/2026 [facility] Comment on above: Expected: 04/03/2025 (Approximate), Expires: 04/03/2026 Start: 04-03-2025 End: 10-01-2025 US biophysical profile w non stress test US biophysical profile w non stress test Imaging Routine 28 weeks gestation of ([facility]) Third trimester ([facility]) Gestational diabetes mellitus (GDM), antepartum, gestational diabetes method of control unspecified ([facility]) History of miscarriage Expected: 04/03/2025 (Approximate), Expires: 10/01/2025 [facility] Comment on above: Expected: 04/03/2025 (Approximate), Expires: 10/01/2025 Start: 04-03-2025 End: 08-03-2025 US for US OB follow up transabdominal approach Imaging Routine 28 weeks gestation of ([facility]) Third trimester ([facility]) Gestational diabetes mellitus (GDM), antepartum, gestational diabetes method of control unspecified ([facility]) History of miscarriage Expected: 04/03/2025, Expires: 08/03/2025 [facility] Work Phone: Comment on above: Expected: 04/03/2025 , Expires: 08/03/2025 Start: 03-24-2025 Influenza vaccination [facility] Start: 02-21-2025 Influenza vaccination Flu vacc ine (Season Ended) [facility] Start: 02-11-2025 End: 02-11-2025 Patient encounter procedure 02/11/2025 2:10 PM EDT Routine [facility] [address] [place] [phone] Mukul Foy, DO [address] [place] [address] [facility] Start: 02-11-2025 End: 02-11-2025 Professional / ancillary services management 02/11/2025 1:00 PM EDT Ancillary Procedure [facility] [address] [place] [phone] [facility] Start: 01-15-2025 End: 01-15-2025 Patient encounter procedure 01/15/2025 3:50 PM EDT Routine [facility] [address] [place] [phone] Mukul Foy, DO [address] [place] [address] [facility] Start: 01-15-2025 End: 07-17-2025 Alpha fetoprotein, maternal Alpha fetoprotein, maternal Lab Routine Second trimester ([facility]) 17 weeks gestation of ([facility]) Expected: 01/15/2025 (Approximate), Expires: 07/17/2025 [facility] Comment on above: Expected: 01/15/2025 (Approximate), Expires: 07/17/2025 Start: 01-15-2025 End: 04-17-2025 US for US OB 14+ weeks anatomy scan Imaging Routine Screening, , for anatomic survey ([facility]) Expected: 01/15/2025, Expires: 04/17/2025 [facility] Comment on above: Expected: 01/15/2025 , Expires: 04/17/2025 Start: 12-18-2024 End: 12-18-2024 Patient encounter procedure 12/18/2024 3:40 PM EDT Routine [facility] [address] [place] [phone] Mukul Foy, DO [address] [place] [address] [facility] Start: 12-18-2024 End: 12-18-2025 CBC panel - Blood by Automated count CBC Lab Routine Diabetes mellitus screening Expected: 12/18/2024 (Approximate), Expires: 12/18/2025 [facility] [employer] Work Phone: Comment on above: Expected: 12/18/2024 (Approximate), Expires: 12/18/2025 Start: 12-18-2024 End: 12-18-2025 Measurement of glucose 1 hour after glucose challenge for glucose tolerance test Glucose tolerance, 1 hour Lab Routine Diabetes mellitus screening Expected: 12/18/2024 (Approximate), Expires: 12/18/2025 [facility] Comment on above: Expected: 12/18/2024 (Approximate), Expires: 12/18/2025 Start: 12-18-2024 End: 03-20-2025 US Pelvis transvaginal US OB transvaginal Imaging Routine Subchorionic hematoma in first trimester, single or unspecified fetus Expected: 12/18/2024, Expires: 03/20/2025 [facility] Work Phone: Comment on above: Expected: 12/18/2024 , Expires: 03/20/2025 Start: 11-14-2024 End: 11-14-2025 ABO/Rh ABO/Rh Lab Routine Missed menses , unspecified gestational age Expected: 11/14/2024 (Approximate), Expires: 11/14/2025 [facility] Comment on above: Expected: 11/14/2024 (Approximate), Expires: 11/14/2025 Start: 11-14-2024 End: 11-14-2025 Blood type and Indirect antibody screen panel - Blood Type and screen Lab Routine Missed menses , unspecified gestational age Expected: 11/14/2024 (Approximate), Expires: 11/14/2025 [facility] Comment on above: Expected: 11/14/2024 (Approximate), Expires: 11/14/2025 Start: 11-14-2024 End: 11-14-2025 Drugs of abuse panel - Urine by Screen method Rapid drug screen, urine Lab Routine , unspecified gestational age Encounter for supervision of normal first in first trimester Expected: 11/14/2024 (Approximate), Expires: 11/14/2025 [facility] Comment on above: Expected: 11/14/2024 (Approximate), Expires: 11/14/2025 Start: 11-06-2024 End: 02-05-2025 US Pelvis transvaginal US OB transvaginal Imaging Routine Missed menses Expected: 11/06/2024, Expires: 02/05/2025 [facility] Work Phone: Comment on above: Expected: 11/06/2024 , Expires: 02/05/2025 Start: 10-16-2024 End: 10-16-2024 Patient encounter procedure 10/16/2024 1:40 PM EDT Office Visit [facility] [address] [place] [address] [address] [place] [address] Ynes Rodriguez, VENEER GRADER - CONDEMNATION ENGINEER [address] [place] [address] Wellness [facility] Comment on above: Wellness Start: 08-03-2024 Depression Screen Depression Screen [facility] Start: 06-04-2024 End: 06-04-2024 Patient encounter procedure 06/04/2024 11:45 AM EST Office Visit [facility] [address] [place] [address] [address] [place] [address] Jose Cruz Raza MD [address] [address] [place] [address] wt management [facility] Comment on above: wt management Start: 05-22-2024 End: 05-22-2024 Patient encounter procedure 05/22/2024 11:00 AM EDT Office Visit [facility] [address] [place] [address] [address] [place] [address] Ynes Rodriguez, VENEER GRADER - CONDEMNATION ENGINEER [address] [place], [place] [id number] LFT + HLD f/u(RS 10/17/23 appt) [facility] Primary Care Comment on above: LFT + HLD f/u(RS 09/22 01/14 appt) Start: 03-24-2024 COVID-19 Vaccine ( season) COVID-19 Vaccine ( season) [facility] Start: 03-24-2024 COVID-19 Vaccine ( season) COVID-19 Vaccine ( season) [facility] Start: 03-24-2024 Influenza vaccination Influenza Vacc ine (#1) [facility] Start: 02-22-2024 Influenza vaccination Flu vaccine (# 1) [facility] Start: 03-03-2023 Screening for malign ant neoplasm of cervix [facility] Start: 11-09-2022 Depression Screen Depression Screen [facility] Start: 07-11-2022 End: 07-11-2022 Patient encounter procedure 07/11/2022 Office Visit Primary Care Ynes Rodriguez, VENEER GRADER - CONDEMNATION ENGINEER [address] [place] [address] [facility] Start: 05-19-2022 End: 05-19-2022 Patient encounter procedure 05/19/2022 Office Visit Obstetrics and Gynecology Berto Live, VENEER GRADER - CNM [address] [place] [address] [facility] Start: 03-18-2022 End: 03-18-2022 Patient encounter procedure 03/18/2022 Office Visit Family Medicine Ynes Rodriguez, VENEER GRADER - CONDEMNATION ENGINEER [address] [place] [address] [facility] Start: 03-12-2022 Hepatitis C screening Hepatitis C sc [facility] Comment on above: Postponed from 09/09 (Patient Refused) Start: 02-21-2022 Influenza vaccination Flu vaccine (# 1) [facility] Start: 11-19-2021 Screening for Chlamy carlton trachomatis [facility] Start: 09-24-2021 Influenza vaccination Flu vacc ine (Season Ended) [facility] Work Phone: Comment on above: Postponed from 03/24 (Patient Refused) Start: 08-17-2021 Depression Monitoring Depression Mon rhiannon [facility] Start: 06-30-2021 COVID-19 Vaccine (3 - Booster for Pfizer series) COVID-19 Vaccine (3 - Booster for Pfizer series) [facility] Start: 06-19-2021 DTaP/Tdap/Td vaccine (7 - Td or Tdap) DTaP/Tdap/Td vaccine (7 - Td or Tdap) [facility] Start: 06-19-2021 DTaP/Tdap/Td vaccine (7 - Td) DTaP/Tdap/Td vaccine (7 - Td) [facility] [place] Start: 03-24-2021 Influenza vaccination Flu vaccine (# 1) [facility] Start: 03-03-2021 Screening for Chlamy carlton trachomatis Chlamydia screen [place], [place] Start: 02-23-2021 COVID-19 Vaccine (3 - Booster for Pfizer series) COVID-19 Vaccine (3 - Booster for Pfizer series) [facility] Start: 02-09-2021 End: 02-09-2021 Patient encounter procedure 02/09/2021 Office Visit Family Medicine Ynes Rodriguez, VENEER GRADER - CONDEMNATION ENGINEER [address] [place] [address] [phone] [facility] Start: 11-30-2020 End: 11-30-2020 Patient encounter procedure 11/30/2020 Office Visit Urology Chris Moe MD [address], [address] [place] [address] [phone] [facility] Start: 05-28-2020 End: 05-28-2020 Telemedicine 05/28/2020 Telemedicine Family Medicine Ynes Rodriguez, VENEER GRADER - CONDEMNATION ENGINEER [address] [place] [address] [phone] [facility] Start: 03-24-2020 Influenza vaccination Flu vaccine (# 1) [place] Start: 02-22-2020 Screening for Chlamy carlton trachomatis Chlamydia screen [place], [place] Start: 2019 Screening for malign ant neoplasm of cervix Cervical cancer screen [place], [place] Start: 2016 Hepatitis C screening Hepatitis C sc katiesigrid [facility] Start: 2014 COVID-19 Vaccine (1) COVID-19 Vaccin e (1) [facility] Phone: Start: 2013 HIV screening HIV screen [place], [place] Start: 1998 Hepatitis C screening Hepatitis C sc katien [facility] [employer] [facility] Phone: Bacteria identified in Urine by Culture Urine culture Microbiology Routine Missed menses Ordered: 11/14/2024 [facility] Comment on above: Ordered: 11/14/2024 Bacteria identified in Urine by Culture Urine culture Microbiology Routine UTI symptoms Ordered: 04/03/2025 [facility] Comment on above: Ordered: 04/03/2025 End: 03-03-2020 C.trachomatis N.gonorrhoeae DNA, Thin Prep C.trachomatis N.gonorrhoeae DNA, Thin Prep Microbiology Routine Encounter for annual routine gynecological examination 1 Occurrences starting 03/03/2020 until 03/03/2020 [facility] MD Comment on above: 1 Occurrences starti ng 03/03/2020 until 03/03/2020 C.trachomatis N.gonorrhoeae DNA, Thin Prep C.trachomatis N.gonorrhoeae DNA, Thin Prep Microbiology Routine Encounter for annual routine gynecological examination 03/03/2020 5:08 PM EDT [place], [place] CBC W Auto Different ial panel - Blood CBC and differential Lab Routine Missed menses , unspecified gestational age Ordered: 11/14/2024 [facility] Comment on above: Ordered: 11/14/2024 CHLAMYDIA TRACHOMATI S (GENITO/STI) CHLAMYDIA TRACHOMATIS (GENITO/STI) Lab Routine STD exposure Ordered: 01/15/2025 [facility] Comment on above: Ordered: 01/15/2025 Cytology Cervical or vaginal smear or scraping study Pap Smear Pathology and Cytology Routine Well woman exam with routine gynecological exam Ordered: 07/15/2024 [facility] Work Phone: Comment on above: Ordered: 07/15/2024 End: 03-03-2020 Cytopathology procedure, preparation of smear, genital source PAP SMEAR Lab Routine Screening for cervical cancer 1 Occurrences starting 03/03/2020 until 03/03/2020 [facility] MD Comment on above: 1 Occurrences starti ng 03/03/2020 until 03/03/2020 Hemoglobin A1c/Hemoglobin.total in Blood Hemoglobin A1c Lab Routine Missed menses , unspecified gestational age Ordered: 11/14/2024 [facility] Comment on above: Ordered: 11/14/2024 Hepatitis B virus surface Ag [Presence] in Serum or Plasma by Immunoassay Hepatitis B surface antigen Lab Routine Missed menses , unspecified gestational age Ordered: 11/14/2024 [facility] Comment on above: Ordered: 11/14/2024 Hepatitis C virus Ab [Presence] in Serum or Plasma by Immunoassay Hepatitis C antibody Lab Routine Missed menses , unspecified gestational age Ordered: 11/14/2024 [facility] Comment on above: Ordered: 11/14/2024 HIV-1/HIV-2 antigen/antibody combination immunoassay HIV-1 and HIV-2 antibodies Lab Routine Missed menses , unspecified gestational age Ordered: 11/14/2024 [facility] Comment on above: Ordered: 11/14/2024 Neisseria gonorrhoea e DNA [Presence] in Unspecified specimen by ANISA with probe detection Neisseria gonorrhea DNA probe, direct Lab Routine STD exposure Ordered: 01/15/2025 [facility] Comment on above: Ordered: 01/15/2025 Reagin Ab [Presence] in Serum by RPR RPR Lab Routine Missed menses , unspecified gestational age Ordered: 11/14/2024 [facility] Comment on above: Ordered: 11/14/2024 Rubella antibody, IgG Rubella an tibody, IgG Lab Routine Missed menses , unspecified gestational age Ordered: 11/14/2024 [facility] Comment on above: Ordered: 11/14/2024 SURESWAB(R) ADVANCED VAGINITIS PLUS, TMA SURESWAB(R) ADVANCED VAGINITIS PLUS, TMA Pathology and Cytology Routine Vaginal discharge Ordered: 01/15/2025 [facility] Work Phone: Comment on above: Ordered: 01/15/2025 US Pelvis transvaginal US OB tra nsvaginal Imaging Routine Missed menses 11/14/2024 2:38 PM EDT [facility] End: 12-20-2024 Us uterus 14 wk transabdl 07/24 gestat [facility]mer [facility] [employer] Work Phone: Comment on above: 1 Occurrences starti ng 12/20/2024 until 12/20/2024 Immunizations Immunization Date Immunization Notes Care Provider Fa hilton 12-29-2020 COVID-19, Pfizer Pur ple top, DILUTE for use, 12+ yrs, 30mcg/0.3mL dose Ynes Rodriguez VENEER GRADER - CONDEMNATION ENGINEER Work Phone: [employer] Phone: 12-07-2020 COVID-19, Pfizer Pur ple top, DILUTE for use, 12+ yrs, 30mcg/0.3mL dose Ynes Rodriguez VENEER GRADER - [facility] Work Phone: [facility] 09-20-2017 human papilloma viru s vaccine, quadrivalent [facility], [place] 05-01-2017 human papilloma viru s vaccine, quadrivalent [facility] 02-24-2017 human papilloma viru s vaccine, quadrivalent [facility] 03-11-2016 meningococcal polysaccharide (groups A, C, Y and W-135) diphtheria toxoid conjugate vaccine (MCV4P) [facility], [place] 2014 meningococcal ACWY vaccine, unspecified formulation [facility] 08-19-2011 Hepatitis A Ped/Adol (Vaqta) [facility] 08-19-2011 hepatitis A vaccine, pediatric/adolescent dosage, 2 dose schedule Ynes Rodriguez VENEER GRADER - [facility] Work Phone: [facility] Work Phone: 06-19-2011 tetanus toxoid, redu saundra diphtheria toxoid, and acellular pertussis vaccine, adsorbed [facility] 02-09-2011 Hepatitis A Ped/Adol (Vaqta) [facility] 02-09-2011 hepatitis A vaccine, pediatric/adolescent dosage, 2 dose schedule nYes Rodriguez VENEER GRADER [facility] Work Phone: [facility] Work Phone: 02-09-2011 varicella virus vaccine [facility], [place] 01-12-2011 meningococcal polysaccharide (groups A, C, Y and W-135) diphtheria toxoid conjugate vaccine (MCV4P) [facility] 11-20-2003 diphtheria, tetanus toxoids and acellular pertussis vaccine [facility] 11-20-2003 measles, mumps and rubella virus vaccine [facility] 11-20-2003 poliovirus vaccine, inactivated [facility] 03-13-2000 diphtheria, tetanus toxoids and acellular pertussis vaccine [facility] 03-13-2000 haemophilus influenz ae type b vaccine, PRP-T conjugate [facility] 03-13-2000 poliovirus vaccine, inactivated [facility] 12-22-1999 measles, mumps and rubella virus vaccine [facility] 12-22-1999 varicella virus vaccine [facility] 06-09-1999 hepatitis B vaccine, pediatric or pediatric/adolescent dosage [facility] 03-12-1999 diphtheria, tetanus toxoids and acellular pertussis vaccine [facility] 03-12-1999 haemophilus influenz ae type b vaccine, PRP-T conjugate [facility] 01-18-1999 diphtheria, tetanus toxoids and acellular pertussis vaccine [facility] 01-18-1999 haemophilus influenz ae type b vaccine, PRP-T conjugate [facility] 01-18-1999 poliovirus vaccine, inactivated [facility] 1998 haemophilus influenz ae type b vaccine, PRP-T conjugate [facility], [place] 1998 poliovirus vaccine, inactivated [facility] 1998 diphtheria, tetanus toxoids and acellular pertussis vaccine [facility] 1998 hepatitis B vaccine, pediatric or pediatric/adolescent dosage [facility] [place] 1998 hepatitis B vaccine, pediatric or pediatric/adolescent dosage [facility] [place] Payers Date Payer Category Payer Unknown [facility] [id number] 2022-Present [address] [facility] [place] [address] Indemnity [id number] 2022 Private Health Insurance [employer] [id number]. [id number] 1998 Unknown [id number] 2.16.840.1.251956.3.579.2. 900 1998 Unknown [id number] 2.16.840.1.997245.3.579.2. 900 1998 Unknown [id number] 2.16.840.1.786274.3.579.2. 900 1998 Unknown [id number] 2.16.840.1.227336.3.579.2. 900 1998 Unknown [id number] 2.16.840.1.181921.3.579.2. 593 1998 Unknown [id number] 2.16.840.1.113432.3.579.2. 593 1998 Unknown [id number] 2.16.840.1.179986.3.579.2. 593 1998 Unknown [id number] 2.16.840.1.635271.3.579.2. 593 1998 Unknown [id number] 2.16.840.1.613289.3.579.2. 593 1998 Unknown [id number] 2.16.840.1.129854.3.579.2. 593 1998 Unknown [id number] 2.16.840.1.821809.3.579.2. 593 1998 Unknown [id number] 2.16.840.1.982436.3.579.2. 593 1998 Unknown [id number] 2.16.840.1.844642.3.579.2. 593 1998 Unknown [id number] 2.16.840.1.361293.3.579.2. 593 1998 Unknown [id number] 2.16.840.1.314273.3.579.2. 593 1998 Unknown [id number] 2.16.840.1.772862.3.579.2. 593 1998 Unknown [id number] 2.16.840.1.050362.3.579.2. 593 1998 Unknown [id number] 2.16.840.1.086226.3.579.2. 593 1998 Unknown [id number] 2.16.840.1.686579.3.579.2. 173 1998 Unknown [id number] 2.16.840.1.810466.3.579.2. 173 1998 Unknown [id number] 2.16.840.1.185898.3.579.2. 173 1998 Unknown [id number] 2.16.840.1.647962.3.579.2. 173 1998 Unknown [id number] 2.16.840.1.281373.3.579.2. 173 1998 Unknown [id number] 2.16.840.1.750225.3.579.2. 1259 1998 Unknown [id number] 2.16.840.1.438599.3.579.2. 1259 1998 Unknown [id number] 2.16.840.1.482945.3.579.2. 1259 1998 Unknown [id number] 2.16.840.1.272410.3.579.2. 9 1998 Unknown [id number] 2.16.840.1.108405.3.579.2. 9 1998 Unknown [id number] 2.16.840.1.286368.3.579.2. 9 1998 Unknown [id number] 2.16.840.1.688009.3.579.2. 9 1998 Unknown [id number] 2.16.840.1.210844.3.579.2. 9 1998 Unknown [id number] 2.16.840.1.553273.3.579.2. 1258 1998 Unknown [id number] 2.16.840.1.283704.3.579.2. 9 1998 Unknown [id number] 2.16.840.1.751244.3.579.2. 9 1998 Unknown [id number] 2.16.840.1.853719.3.579.2. 1259 1959 Self-pay 1959 Unknown [id number] 1.2.840.150525.1.13.239.2. 7.3.110790.315 1959 Unknown [id number] 1959 Unknown [id number] Unknown [id number] 2.16.840.1.375707.3.579.2. 593 Social History Date Type Detail Facility Start: 03-03-2020 End: 12-31-2022 Tobacco smoking status NHIS Never smoker [place], [place] Start: 03-03-2020 End: 12-31-2022 Tobacco use and exposure Never used [place] Start: 03-03-2020 End: 05-12-2021 Alcohol intake Current drinker of alcohol (finding) [place] Start: 06-19-2017 Alcohol Comment social [facility] [place] Start: 1998 Sex Assigned At Not on file M [place] Start: 05-01-2020 End: 03-08-2022 History SDOH Financial 5 [place] Start: 05-01-2020 End: 03-08-2022 History SDOH Food Worry 1 [place], [place] Start: 05-01-2020 History SDOH Transpo rt Med 2 [place] Exposure to SARS-CoV -2 (event) Not sure [facility] Start: 05-01-2024 End: 11-12-2024 Alcoholic beverage intake [facility] Start: 05-01-2024 End: 11-14-2024 History of Social function [facility] Start: 05-01-2024 End: 11-14-2024 Tobacco use panel [facility] How hard is it for y ou to pay for the very basics like food, housing, medical care, and heating Not hard at all [facility] (I/We) worried wherosemary er (my/our) food would run out before (I/we) got money to buy more. Never true [facility] Start: 1998 [facility] Start: 05-20-2024 Gender identity Identifies as female gender (finding) [facility] Start: 07-05-2023 End: 04-30-2025 Alcoholic beverage intake Lifetime non-drinker (finding) [facility] Start: 09-30-2024 CRISPINS [facility] Has the electric, ga s, oil, or water company threatened to shut off services in your home in past 12Mo No [employer] Start: 09-02-2012 Sex Female (finding) [facility] [employer] Medical Equipment Procedure Code Equipment Code Equipment Origin al Text Equipment Identifier Dates Use as instructed [id number] Start: 01-15-2025 End: 01-15-2026 Inject 1 each un tino the skin Daily [id number] Start: 04-07-2025 End: 07-16-2025 Goals Date Patient [...] Frequent UTI 11/30/2020 23 weeks gestation of ([facility]) 02/26/2025 Elevated blood sugar level 02/26/2025 Resolved Ambulatory Problems Diagnosis Date Noted Missed period 01/13/2023 Past Medical History: Diagnosis Date GDM (gestational diabetes mellitus) ([facility]) HISTORY PAST MEDICAL HISTORY SOCIAL HISTORY Past Medical History: Diagnosis Date GDM (gestational diabetes mellitus) ([facility]) Social History Tobacco Use Smoking status: [...] nursing note reviewed. Exam conducted with a state highway police officer present. Vitals: Estimated body mass index is 36.7 kg/m as calculated from the following: Height as of 01/30/23: 5' 6 . Weight as of this encounter: 227 lb 6.4 oz. BP: 110/70 Patient's last menstrual period was 09/16/2024. ASSESSMENT & PLAN ICD-10-CM 1. Third trimester ([facility]) Z34.93 2. 32 weeks gestation of ([facility]) Z3A.32 POCT urinalysis dipstick manually resulted [...] Ceasar Li NP documented in this encounter [facility] 04-14-2025 History of Present illness Narrative [...] Frequent UTI 11/30/2020 23 weeks gestation of ([facility]) 02/26/2025 Elevated blood sugar level 02/26/2025 Resolved Ambulatory Problems Diagnosis Date Noted Missed period 01/13/2023 Past Medical History: Diagnosis Date GDM (gestational diabetes mellitus) ([facility]) HISTORY PAST MEDICAL HISTORY SOCIAL HISTORY Past Medical History: Diagnosis Date GDM (gestational diabetes mellitus) ([facility]) Social History Tobacco Use Smoking status: [...] ASSESSMENT & PLAN ICD-10-CM 1. Third trimester ([facility]) Z34.93 POCT urinalysis dipstick manually resulted 2. 30 weeks gestation of ([facility]) Z3A.30 Return OB: Patient presents today [...] of: JOSEPH Bowie documented in this encounter [facility] 04-03-2025 History of Present illness Narrative [...] Frequent UTI 11/30/2020 23 weeks gestation of ([facility]) 02/26/2025 Elevated blood sugar level 02/26/2025 Resolved Ambulatory Problems Diagnosis Date Noted Missed period 01/13/2023 Past Medical History: Diagnosis Date GDM (gestational diabetes mellitus) ([facility]) HISTORY PAST MEDICAL HISTORY SOCIAL HISTORY Past Medical History: Diagnosis Date GDM (gestational diabetes mellitus) ([facility]) Social History Tobacco Use Smoking status: [...] PLAN ICD-10-CM 1. 28 weeks gestation of ([facility]) Z3A.28 POCT urinalysis dipstick manually resulted US OB follow up transabdominal approach US biophysical profile w non stress test 2. Third trimester ([facility]) Z34.93 POCT urinalysis dipstick manually resulted US OB follow up transabdominal approach US biophysical profile w non stress test 3. Dizziness R42 CBC and differential CBC and differential 4. Gestational diabetes mellitus (GDM), antepartum, gestational diabetes method of control unspecified ([facility]) O24.419 US OB follow up transabdominal [...] of: JOSEPH Bowie documented in this encounter [facility] 03-12-2025 History of Present illness Narrative [...] Frequent UTI 11/30/2020 23 weeks gestation of ([facility]) 02/26/2025 Elevated blood sugar level 02/26/2025 Resolved Ambulatory Problems Diagnosis Date Noted Missed period 01/13/2023 Past Medical History: Diagnosis Date GDM (gestational diabetes mellitus) ([facility]) No family history on file. Social [...] nursing note reviewed. Exam conducted with a state highway police officer present. Vitals: Estimated body mass index is 36.12 kg/m as calculated from the following: Height as of 01/30/23: 5' 6 . Weight as of this encounter: 223 lb 12.8 oz. BP: 100/70 Patient's last menstrual period was 09/16/2024. Assessment/Plan Encounter Diagnosis: ICD-10-CM 1. 25 weeks gestation of ([facility]) Z3A.25 POCT urinalysis dipstick manually resulted 2. Second trimester ([facility]) Z34.92 POCT urinalysis dipstick manually resulted [...] Mukul Foy DO documented in this encounter [facility] 02-26-2025 History of Present illness Narrative [...] Frequent UTI 11/30/2020 23 weeks gestation of ([facility]) 02/26/2025 Elevated blood sugar level 02/26/2025 Resolved Ambulatory Problems Diagnosis Date Noted Missed period 01/13/2023 Past Medical History: Diagnosis Date GDM (gestational diabetes mellitus) ([facility]) HISTORY PAST MEDICAL HISTORY SOCIAL HISTORY Past Medical History: Diagnosis Date GDM (gestational diabetes mellitus) ([facility]) Social History Tobacco Use Smoking status: [...] nursing note reviewed. Exam conducted with a state highway police officer present. Vitals: Estimated body mass index is 35.96 kg/m as calculated from the following: Height as of 01/30/23: 5' 6 . Weight as of this encounter: 222 lb 12.8 oz. BP: 110/70 Patient's last menstrual period was 09/16/2024. ASSESSMENT & PLAN ICD-10-CM 1. 23 weeks gestation of ([facility]) Z3A.23 POCT urinalysis dipstick manually resulted [...] Mukul Foy DO documented in this encounter [facility] 02-11-2025 History of Present illness Narrative [...] History: Diagnosis Date GDM (gestational diabetes mellitus) ([facility]) HISTORY PAST MEDICAL HISTORY SOCIAL HISTORY Past Medical History: Diagnosis Date GDM (gestational diabetes mellitus) ([facility]) Social History Tobacco Use Smoking status: [...] ASSESSMENT & PLAN ICD-10-CM 1. Second trimester ([facility]) Z34.92 metFORMIN XR (Glucophage-XR) 500 MG 24 hr tablet POCT urinalysis dipstick manually resulted 2. 20 weeks gestation of ([facility]) Z3A.20 metFORMIN XR (Glucophage-XR) 500 MG [...] Mukul Foy DO documented in this encounter [facility] 01-15-2025 History of Present illness Narrative [...] History: Diagnosis Date GDM (gestational diabetes mellitus) ([facility]) HISTORY PAST MEDICAL HISTORY SOCIAL HISTORY Past Medical History: Diagnosis Date GDM (gestational diabetes mellitus) ([facility]) Social History Tobacco Use Smoking status: [...] nursing note reviewed. Exam conducted with a state highway police officer present. Vitals: Estimated body mass index is 34.19 kg/m as calculated from the following: Height as of 01/30/23: 5' 6 . Weight as of this encounter: 211 lb 12.8 oz. BP: 118/72 Patient's last menstrual period was 09/16/2024. ASSESSMENT & PLAN ICD-10-CM 1. Second trimester ([facility]) Z34.92 Alpha fetoprotein, maternal Alpha fetoprotein, maternal 2. 17 weeks gestation of ([facility]) Z3A.17 Alpha fetoprotein, maternal Alpha fetoprotein, maternal 3. Vaginal discharge N89.8 SURESWAB(R) ADVANCED VAGINITIS PLUS, TMA 4. STD exposure Z20.2 CHLAMYDIA TRACHOMATIS (GENITO/STI) Neisseria gonorrhea DNA probe, direct 5. Screening, , for anatomic survey ([facility]) Z36.89 US OB 14+ weeks anatomy scan 6. Gastroesophageal reflux in ([facility]) O99.619 omeprazole (PriLOSEC) [address] capsule K21.9 7. Gestational diabetes mellitus (GDM), antepartum, gestational diabetes method of control unspecified ([facility]) O24.419 glucose blood test strip Return [...] virgil barton, pac documented in this encounter [facility] 12-18-2024 History of Present illness Narrative [...] by JOSEPH Bowie documented in this encounter [facility] 11-14-2024 History of Present illness Narrative [...] Nurse Note: Patient uncertain of doing the [place] screening. Pt was advised both labs and [...] meat, and stay away from [facility]. Patient has also been advised to not [...] Elizabeth Ware MA documented in this encounter [facility] 07-15-2024 History of Present illness Narrative [...] nursing note reviewed. Exam conducted with a state highway police officer present. Vitals: Estimated body mass index is [...] Mukul Foy DO documented in this encounter [facility] 08-06-2023 Note HNO ID: [id number] Author: LANG CARREON APRN.CONDEMNATION ENGINEER Service: ? Author Type: Nurse Practitioner Type: Progress Notes Filed: 08/06/2023 10:44 Note Text: Telemedicine Visit - Distance Health Virtual Visit Note I have communicated my name and active licensure. The patient's identity and physical location were verified at the time of this visit. Either the patient or their legal loan representative has been informed of the risks and benefits of -- and alternatives to -- treatment through a remote evaluation and consents to proceed with the evaluation remotely. Patient seen on virtual platforms, [employer]. Location of patient: [place] History of Presenting Illness: Vinny Downey 22 [...] - Sleep with head elevated due to nijl-gzhia-jyeu increases cough - Continue Flonase - Flonase: [...] care - All questions answered Lang Carreon APRN.[facility] 07-11-2023 Note [facility]rophys[facility] Consult [...] recent labs Rajendra Sheffield MD Cardiac Electrophysiology [facility] 07-11-2023 Note Patient here for [facility] low up event monitor. Echo was not performed that was ordered at last apt in Feb 2023 by Israel Champion CNP. Does not notice palpitations as often. Denies chest pain, SOB, and lightheadedness. Review of Systems Cardiovascular: Positive for palpitations (less often). All other systems reviewed and are negative. [facility] 03-30-2023 Note -developed anemia po stpartum s/p -hgb 10.8 per recent labs [facility] 03-30-2023 Note - could be related t o being , anemia -monitor and echo to rule out cardiac concern [facility] 03-30-2023 Note - [facility]ine [facility] [place] [facility] - 30-day event monit or - we will hold off on starting medication until follow-up [facility] 03-20-2023 Note New patient here [...] All other systems reviewed and are negative. [facility] 03-20-2023 Note [facility] Consult [...] are attached to (more content not included)... [facility] Evaluation note Diagnosis Frequent UTI Urinary tract infection, site not specified documented in this encounter [facility] Phone: evaluation note* Diagnosis Amenorrhea Absence of menstruation documented in this encounter [employer] Phone: evaluation note* Diagnosis Elevated liver enzymes Nonspecific elevation of levels of transaminase or lactic acid dehydrogenase (LDH) Mixed hyperlipidemia documented in this encounter [employer] note* Diagnosis Well woman exam with routine gynecological exam Routine gynecological examination documented in this encounter [facility]* Diagnosis Missed menses 8 weeks gestation of , unspecified gestational age Encounter for supervision of normal first in first trimester History of miscarriage Personal history of other genital system and obstetric disorders documented in this encounter [facility] [employer] note* Diagnosis Second trimester state, incidental 12 weeks gestation of Subchorionic hematoma in first trimester, single or unspecified fetus Diabetes mellitus screening Screening for diabetes mellitus documented in this encounter [facility] [employer] note* Diagnosis Subchorionic hematoma, antepartum, first trimester, not applicable or unspecified fetus documented in this encounter [facility] Diagnosis Second trimester (HHS-HCC) state, incidental 17 weeks gestation of ([facility]) Vaginal discharge Leukorrhea, not specified as infective STD exposure Screening, , for anatomic survey ([facility]) Encounter for anatomic survey Gastroesophageal reflux in ([facility]) Gestational diabetes mellitus (GDM), antepartum, gestational diabetes method of control unspecified ([facility]) documented in this encounter [facility] note* Diagnosis Second trimester (HHS-HCC) state, incidental 20 weeks gestation of (HHS-HCC) documented in this encounter [facility]* Diagnosis 23 weeks gestation of ([facility]) Elevated blood sugar level Other abnormal glucose Gastroesophageal reflux disease without esophagitis Esophageal reflux documented in this encounter [facility]* Diagnosis 25 weeks gestation of (HHS-HCC) Second trimester (HHS-HCC) state, incidental Gastroesophageal reflux disease without esophagitis Esophageal reflux documented in this encounter [facility] HealthcareEvaluation note* Diagnosis 28 weeks gestation of (HHS-HCC) Third trimester ([facility]) state, incidental Dizziness Dizziness and giddiness Gestational diabetes mellitus (GDM), antepartum, gestational diabetes method of control unspecified ([facility]) History of miscarriage Personal history of other genital system and obstetric disorders Anemia, unspecified type UTI symptoms documented in this encounter [facility] note* Diagnosis Third trimester (HHS-HCC) state, incidental 30 weeks gestation of ([facility]HS-HCC) documented in this encounter [facility] note* Diagnosis Third trimester (HHS-HCC) state, incidental 32 weeks gestation of ([facility]) documented in this encounter [facility] HealthcareReason for visit Narrative* Imaging (Routine) - Open Specialty Diagnoses / Procedures Referred By Ever winslow Referred To Contact Radiology Diagnoses Subchorionic hematoma, antepartum, first trimester, not applicable or unspecified fetus Procedures US OB LESS THAN 14 WEEKS SINGLE OR FIRST GESTATION W DOPPLER US OB TRANSVAGINAL Mukul Foy MD [address] [place] [address] Phone: tel: Referral ID Status Reason Start Date Expiration Date Visits Re quested Visits Authorized [id number] Open 12/19/2024 12/19/2025 1 1 [facility] Assessments Diagnosis Screening for cervical cancer Screening for malignant neoplasm of the cervix Encounter for annual routine gynecological examination Diagnosis Encounter for screening for HIV Other fatigue Wellness examination Advance Directives No Advanced Directives Records FoundDocuments on File Type Date Recorded Patient Bracelet And Brooch Maker Expl anation Advance Directives and Living Will Power of Hospital Fellow Documents on File Type Date Recorded Patient Bracelet And Brooch Maker Expl anation ACP-Advance Directive ACP-Power of Hospital Fellow Documents on File Type Date Recorded Patient Bracelet And Brooch Maker Expl anation ACP-Advance Directive ACP-Power of Hospital Fellow Summary Purpose Family History No Family History Records FoundNo Family History Records FoundNo Family History Records FoundNo Family History Records FoundNo Family History Records FoundNo Family History Records FoundNo Family History Records Found Reason for Referral Status Reason Specialty Diagnoses / Procedures Referre d By Contact Referred To Contact Closed Radiology Diagnoses Frequent UTI Procedures US RENAL COMPLETE Lorena Ricks, VENEER GRADER - CONDEMNATION ENGINEER [address] [place] [address] Additional Source Comments INFORMATION SOURCE (unrecogn ized section and content) DATE CREATED AUTHOR 10/14/2020 [facility] DATE CREATED AUTHOR AUTHOR'S ORGANIZ ATION 09/26/2021 [facility] DATE CREATED AUTHOR AUTHOR'S ORGANIZ ATION 12/30/2022 [facility] DATE CREATED AUTHOR AUTHOR'S ORGANIZ ATION 08/03/2023 [facility] DATE CREATED AUTHOR AUTHOR'S ORGANIZ ATION 08/07/2023 [facility] DATE CREATED AUTHOR AUTHOR'S ORGANIZ ATION 01/09/2025 [facility] DATE CREATED AUTHOR AUTHOR'S ORGANIZ ATION 05/03/2025 [facility] EPIC Reason for Visit (unrecogniz ed section and content) Status Reason Specialty Diagnoses / Procedures Referre d By Contact Referred To Contact Closed Radiology Diagnoses Frequent UTI Procedures US RENAL COMPLETE Lorena Ricks, VENEER GRADER - CONDEMNATION ENGINEER [address] [place] [address] Reason Comments Gynecologic Exam Reason Comments Amenorrhea Reason Comments Routine Visit Reason Comments Routine Visit STI Screening Care Teams (unrecognized sec tion and content) International Sales Representative Relationship Specialty Start Date End Date Ynes Rodriguez, VENEER GRADER - CONDEMNATION ENGINEER [address] [place] [address] PCP - General Family Nurse Practitioner 05/04/20 International Sales Representative Relationship Specialty Start Date End Date Ynes Rodriguez, VENEER GRADER - CONDEMNATION ENGINEER [address] [place] [address] PCP - General Family Nurse Practitioner 05/04/20 International Sales Representative Relationship Specialty Start Date End Date Ynes Rodriguez, VENEER GRADER - CONDEMNATION ENGINEER [address] [place] [address] PCP - General Family Nurse Practitioner 08/02/22 International Sales Representative Relationship Specialty Start Date End Date Ynes Rodriguez, VENEER GRADER - CONDEMNATION ENGINEER [address] [place] [address] PCP - General Family Nurse Practitioner 08/02/22 International Sales Representative Relationship Specialty Start Date End Date Ynes Rodriguez, VENEER GRADER - CONDEMNATION ENGINEER [address] [place] [address] PCP - General Family Nurse Practitioner 08/02/22 [...] BE BASED ON THE PRIMARY CLINICAL RECORDS. [employer] provides no warranty or guarantee of the accuracy or completeness of information in this document.
[2025-05-07 16:10] VITALS: BP 119/62; PULSE 78
--- NOTE | 2025-05-07 16:41 | US_ITS ---
[address] [address] Patient Name: VINNY HERRERA MRN: [id number] date: 2000 Sex: F Assigned Patient Location: Current Patient Location: Accession/Order Number: [id number] Exam Date: 05/07/2025 16:45 Report Date: 05/08/2025 00:28 At the request of: BRITT HOLDER DO Procedure: US OB BPP w non-stress US OB BPP w non-stress 05/07/2025 5:57 PM SIGNS AND SYMPTOMS: ^06/23/2025 ^GESTATIONAL DIABETES MELLITUS 024.419 PROTOCOL: Transabdominal sonographic images of the gravid uterus COMPARISON: None FINDINGS: Estimated gestational age: 33 weeks 2 days heart rate: 127 bpm Amniotic fluid index: 16.03 cm. The deepest vertical pocket measures 6.47 cm. Biophysical profile: breathing movements: 2/2 Gross body movements: 2/2 tone: 2/2 Amniotic fluid volume: 2/2 US/US OB BPP w non-stress IMPRESSION: Biophysical profile score: 8/8 Impression dictated by: Pavel Yepez M.D. 05/08/2025 12:28 AM Dictation Location: [employer] Electronically authenticated by: [id number] Y Date: 05/08/2025 00:28
== END 2025-05-07 17:05 | disposition home or self-care (01) ==
LOC: US 15:59 → FBC 16:03
PROVIDERS: PCP Nurse Practitioner Women's Health; Visit Provider Obstetrics & Gynecology
DX: O24.419 Gestational diabetes mellitus in pregnancy, unspecified control (principal); Z3A.33 33 weeks gestation of pregnancy
CPT/HCPCS: 76818

== ENCOUNTER 2025-05-10 12:17 | Outpatient (OUT) | payer OTHER, SELFPAY ==
--- OUTSIDE RECORDS SUMMARY | 2020-06-22 11:27 | XMS_ITS | Continuity of Care Document ---
Author Organization [employer] [facility] Address [address] [place] [address] Phone Care Team Providers Care Railroad Commissioner Name Role Phone Valerie Ernandez Chen vailable Allergies, Adverse Reactions, Alerts Substance Reaction Status Criticality No Known Allergies Active No Inform ation Medications Medication Instructions Dosage Effective Dates (start - stop) Status Comments Flonase Allergy Relief 50 mcg/actuation nasal spray,suspension inhale 2 spray by intranasal route every day in each nostril 100 MCG - Active fluconazole 150 mg tablet take 1 tablet by oral route once 150 MG - Active trazodone 50 mg tablet take 1 tablet by oral route 3 times every day after meals 50 MG - Active Shania 3 mg-0.03 mg tablet take 1 tablet by oral route every day 1.00 tablet - Active Claritin 5 mg/5 mL oral solution take 10 milliliter by oral route every day 10 MG - Active Procedures Procedure Date OFFICE/OUTPATIENT VISIT, EST URINALYSIS, AUTO, W/O SCOPE OFFICE/OUTPATIENT VISIT, NEW Advance Directives Directive Yes / No Effective Date File Name No Information Encounters Encounter Description Practice Location Reason(s) For Visit Diagnoses Date Provider Providers Copied on Encounter [employer], [address] [place], [place], [address], [place] tel:[phone] [facility] No Information Livier Padilla. [address] [place], [place], [address], [place]. tel:[phone] OFFICE/OUTPAT IENT VISIT, [facility], [address] [place] [address] [address], [place], [place], [address], tel:[phone] [facility] COVID EXPOSURE AND SYMPTOMS (chief complaint) Body achesFatigue, unspecified typeExposure to COVID-19 virus Omarkrista LUX-MUNA Padilla. [address] [place], [place], [address], [place]. tel:[phone] Referring Provider: Valerie Maier APRNMUNA, [address] [place], [address] . tel:[phone] OFFICE/OUTPAT IENT VISIT, [facility], [address] [place] [address] [address], [place], [place], [address], tel:[phone] [facility] UTI (chief complaint) Dysuria Titus Albarran. [address], [place], [address], [place]. tel:[phone] Referring Provider: Avis Qureshi NP, [address] [place], [address] . tel:[phone] Family History Family Member Type Diagnosis Age At Onset No Information Payers Payer name Insurance type Covered constitution party ID Bill diggs(s) Thad TODD [id number] Social History Type Description Quantity Date Captured Comments Sex Female Smoking Status No Information Chief Complaint And Reason For Visit No Information Reason For Referral Reason For Referral No Information Plan Of Treatment Date Type Action Status Future Order: Lab Order COVID 19 , RT-PCR ([id number]), Ordered on: Ordered History Of Present Illness Encounter Date Complaint History Of Prese nt Illness COVID EXPOSURE AND S YMPTOMS (comments) 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 PATIENT STATES THAT 2 PEOPLE IN HER [...] FOR COUGH WELL IF YOU ARE A [employer] STUDENT LIVING ON CAMPUS PLEASE CALL YOUR [facility] COVID HOTLINE NUMBER IS [phone] RED FLAGS THAT WOULD WARRANT ER ASSESSMENT [...] COVID CASES: COVID TESTS ARE RUN AT [facility] AND ARE TYPICALLY DONE IN 24-48 HOURS. PLEASE SIGN UP FOR THE PATIENT PORTAL THOUGH THE [facility] YOUR RESULTS WILL SHOW UP THERE. IF YOU DO NOT GET AN EMAIL TO SET UP YOUR PATIENT PORTAL PLEASE CALL [phone] Monday RIDAY 8:00AM 4:30PM HOW TO DISCONTINUE [...] SOMEHOW GOT RESPIRATORY DROPLETS ON YOU HTTPS://[email or web address] OV/EZ-CJA-ORI-SICK/QUARANTINE.HTML (UPDATED OF 05.19.2020) CONTACT YOUR LOCAL HEALTH [...] SYMPTOMS THAT ARE SEVERE OR CONCERNING. COVID-19 HOTLINE:1-629-3-ASK-ODH ( ) HOW TO HELP STOP THE [...] SECONDS. RESOURCES FOR MORE INFORMATION: [email or web address] OV/INDEX.HTML HTTPS://[email or web address]/PORTAL /GOV/COVID-19/HOME HTTPS://[email or web address]/CORONAVIRUS/ OV/AV-NWP-LVK-SICK/DBXNL-CHMI-[email or web address].HTML Related to Exposure to COVID-19 virus Increase fluids and rest.May continue over the counter urinary pain relief. Take antibiotic completely. Return to [facility] if not improving. Related to Dysuria Assessments Type Assessment Date No Information Patient Care Teams Name Effective Dates (start - stop) Status Members No Information
--- OUTSIDE RECORDS SUMMARY | 2025-04-30 15:00 | XMS_ITS | Encounter Summary ---
Author Organization [facility] Healthcare Address [address] [place] [address] Care Team Providers Care Polysomnography Tech Name Role Phone Unavailable Primary Care Provider Unavailabl e Reason for Visit * Reason Comments Routine Visit Encounter Details Date Type Department Care Team ([facility] Contact Info) Description 04/30/2025 3:00 PM EDT Routine [facility] [address] [facility] [facility] [address] Tiffany Li, ASHWIN [address] [place] [address] Third trimester ([facility]); 32 weeks gestation of ([facility]) Social History Tobacco Use Types Packs/Day [...] Frequent UTI 11/30/2020 23 weeks gestation of ([facility]) 02/26/2025 Elevated blood sugar level 02/26/2025 Resolved Ambulatory Problems Diagnosis Date Noted Missed period 01/13/2023 Past Medical History: Diagnosis Date GDM (gestational diabetes mellitus) ([facility]) HISTORY PAST MEDICAL HISTORY SOCIAL HISTORY Past Medical History: Diagnosis Date GDM (gestational diabetes mellitus) ([facility]) Social History Tobacco Use Smoking [...] nursing note reviewed. Exam conducted with a industry operations investigator present. Vitals: Estimated body mass index is 36.7 kg/m?? as calculated from the following: Height as of 01/30/23: 5' 6 . Weight as of this encounter: 227 lb 6.4 oz. BP: 110/70 Patient's last menstrual period was 09/16/2024. ASSESSMENT & PLAN ICD-10-CM 1. Third trimester ([facility]) Z34.93 2. 32 weeks gestation of ([facility]) Z3A.32 POCT urinalysis dipstick manually [...] 2:50 PM EDT Routine [facility] [address] [facility] [place] [phone] Mukul Foy, DO [address] [place], [place] [phone] 07/28/2025 4:00 PM EST Office Visit DIANE SANTO [address] [facility] [place] [address] Mukul Foy, DO [address] [place] [address] documented as of this encounter Goals Goal Patient Goal Type Associated Problems Recent Progress Patient-Stated? Author Reminders Care Plan OB Reminders No Open Scheduling, Background documented as of this encounter Procedures Procedure Name Priority Date/Time Associated Diagnosis Comments POCT URINALYSIS DIPSTICK Routine 04/30/2025 3:19 PM EDT 32 weeks gestation of ([facility]) documented in this encounter Results [...]
--- OUTSIDE RECORDS SUMMARY | 2025-05-10 12:19 | XMS_ITS | CCD ---
Author Organization [facility] CliniSyid Care Team Providers Care Sign Maker Name Role Phone Jannette Peña I Primary Care Provider Ynes Rodriguez Primary Care Provider Fede LUX Ynes ANDRES Primary Care Provide r LAW, MUKUL R Admitting Unavailable LAW, MUKUL R Primary Care Unavailable LAW, MUKUL R Admitting Unavailable LAW, MUKUL R Primary Care Unavailable LAW, MUKUL R Admitting Unavailable LAW, MUKUL R Primary Care Unavailable BERTO LIVE Admitting Unavailabl e LAW, MUKUL R Primary Care Unavailable Fede TURNING LATHE TENDER - HIGHWAY COMMISSIONER, Ynes Conner Primary Care Provide r Unavailable Primary Care Provider Unavailabl e LAW ., DR DE LA TORRE Attending Unavailable MISC, DR YAÑEZ Primary Care Unavailable MILLERTON, DR YELENA Henao Consulting Unavailable LAW ., [...] Unavailable MISC, DR YAÑEZ Primary Care Unavailable MILLERTON, DR YELENA Henao Consulting Unavailable LAW ., [...] EC tablet Indications: 23 weeks gestation of ([facility]) , Elevated blood sugar level , [...] accident; Translations: [ENC EXAM AND OBSERVATION FOLLOW [facility]] Onset: 12-12-2022 Episodic Other liver diseases [...] US OB BPP W NON-STRESS on 04-30-2025 [place] [address] Ultrasound Report Signed Patient: VINNY DOWNEY MR#: [id number] : 2000 Acct:[id number] Age/Sex: 24 / F ADM Date: 04/30/25 Loc: US Attending Dr: Mukul Foy D.O. Ordering Physician: Mukul Foy D.O. Date of Service: 04/30/25 Procedure(s): US OB BPP w non-stress Accession Number(s): [id number] cc: Mukul Foy D.O.; Ynes Rodriguez [place] [id number] Patient Name: VINNY DOWNEY MRN: [facility]:[id number] date: 2000 Sex: F Assigned Patient Location: [facility] Current Patient Location: Accession/Order Number: [id number] Exam Date: 04/30/2025 15:57 Report Date: 04/30/2025 22:59 At the request of: MUKUL FOY DO Procedure: US OB BPP w non-stress Ultrasound biophysical profile INDICATION: Gestational diabetes COMPARISON: 04/05/2025 FINDINGS/IMPRESSION: : Fetus cephalic position. 8/8 score biophysical profile. heart rate 145 beats per minutes. JAMAL 12.7 cm. Impression dictated by: Chevy Moreland M.D. 04/30/2025 10:59 PM Dictation Location: RADIO-PC-29 Electronically authenticated by: [id number] Y Date: 04/30/2025 22:59 Dictated By: Chevy Moreland M.D. Signed By: 04/30/252301 DD/ 58 TD/TT: Image Scientist: [facility] Radiology, Radiologist, MD - 04/30/2025 [place] [address] Ultrasound Report Signed Patient: VINNY DOWNEY MR#: [id number] : 2000 Acct:[id number] Age/Sex: 24 / F ADM Date: 04/30/25 Loc: US Attending Dr: Mukul Foy D.O. Ordering Physician: Mukul Foy D.O. Date of Service: 04/30/25 Procedure(s): US OB BPP w non-stress Accession Number(s): [id number] cc: Mukul Foy D.O.; Ynes Rodriguez WALL WASHER [place] [id number] Patient Name: VINNY DOWNEY MRN: [facility]:[id number] date: 2000 Sex: F Assigned Patient Location: [facility] Current Patient Location: Accession/Order Number: [id number] Exam Date: 04/30/2025 15:57 Report Date: 04/30/2025 22:59 At the request of: MUKUL FOY DO Procedure: US OB BPP w non-stress Ultrasound biophysical profile INDICATION: Gestational diabetes COMPARISON: 04/05/2025 FINDINGS/IMPRESSION: : Fetus cephalic position. 02/28 score biophysical profile. heart rate 145 beats per minutes. JAMAL 12.7 cm. Impression dictated by: Chevy Moreland M.D. 04/30/2025 10:59 PM Dictation Location: [facility]IO[facility] [employer]29 Electronically authenticated by: [id number] Y Date: 04/30/2025 22:59 Dictated By: Chevy Moreland M.D. Signed By: 04/30/25 5130 DD/ 58 TD/TT: Image Scientist: [facility] Radiology Study observation (narrative) [facility] US OB BPP W NON-STRESS Ordered By: Radiologist Radiology on 04-30-2025 [facility] Work Phone: Urinalysis macro (dipstick) panel (U)on 04-30-2025 Bilirubin, UA Negative Negative - 4(70) +++ mg/dL [facility] Blood, UA Negative Negative - 50 Yunior/mcL [facility] Clarity, UA Clear [facility] Color, UA Yellow [facility] Glucose, UA Negative Negative - 1999(110) ++++ mg/dL [facility] Interpretation and review of laboratory results Abnormal [facility] Ketones, UA Negative Negative - 160(16) ++++ mg/dL [facility] Leukocytes, UA 1+ Negative - 500+++ Trip/mcL [facility] Nitrite, UA Negative Negative - Positive [facility] pH, UA 6.5 5 - 9 [facility] Protein, UA Negative Negative - 1999(20) ++++ mg/dL [facility] Spec Grav, UA 1.01 1 - 1.03 [facility] Urobilinogen, UA 2.0 0.2 - 12 mg/dL [facility] Urinalysis macro (dipstick) panel (U)on 04-14-2025 Bilirubin, UA Negative Negative - 4(70) +++ mg/dL [facility] Blood, UA Negative Negative - 50 Yunior/mcL [facility] Clarity, UA Clear [facility] Color, UA Yellow [facility] Glucose, UA Negative Negative - 1999(110) ++++ mg/dL [facility] Interpretation and review of laboratory results Normal [facility] Ketones, UA Negative Negative - 160(16) ++++ mg/dL [facility] Leukocytes, UA Negative Negative - 500+++ Trip/mcL [facility] Nitrite, UA Negative Negative - Positive [facility] pH, UA 6.5 5 - 9 [facility] Protein, UA Negative Negative - 1999(20) ++++ mg/dL [facility] Spec Grav, UA 1.005 1 - 1.03 [facility] Urobilinogen, UA 0.2 0.2 - 12 mg/dL [facility] ALL CBC WITH AUTO DIFFon BASOPHILS ABSOLUTE AUTO 0 [facility] Basophils/100 WBC (Bld) 0.2 % 0.2 - 2.0 % [facility] Eosinophils/100 WBC (Bld) 1.1 % 0.9 - 7.0 % [facility] Erythrocyte distribution width (RBC) [Ratio] 12.8 % 11.0 - 15.0 % [facility] Hematocrit (Bld) [Volume fraction] 30.7 % Low 36.0 - 48.0 % [facility] Hemoglobin (Bld) [Mass/Vol] 10.3 g/dL Low 12.0 - 16.0 g/dL [facility] IMMATURE GRANULOCYTES ABS AUTO 0.04 High [facility] Immature granulocytes/100 WBC (Bld) 0.4 % 0.0 - 0.5 % [facility] Interpretation and review of laboratory results Abnormal [facility] LYMPHOCYTES ABSOLUTE AUTO 1.9 [facility] Lymphocytes/100 WBC (Bld) 17.1 % Low 20.5 - 60.0 % [facility] MCH (RBC) [Entitic mass] 29.7 pg 26.7 - 34.0 pg [facility] MCHC (RBC) [Mass/Vol] 33.6 g/dL 29.9 - 35.2 g/dL [facility] MCV (RBC) [Entitic vol] 88.5 fL 81.0 - 99.0 fL [facility] MONOCYTES ABSOLUTE AUTO 0.7 [facility] Monocytes/100 WBC (Bld) 6.5 % 1.7 - 12.0 % [facility] NEUTROPHILS ABSOLUTE AUTO 8.2 High [facility] Neutrophils/100 WBC (Bld) 74.7 % 43.0 - 75.0 % [facility] Platelet mean volume (Bld) [Entitic vol] 8.7 fL Low 9.5 - 13.5 fL [facility] TBH EO # 0.1 [facility]H PLT [address] [facility] RBC 3.47 Low [facility] TB WBC 11 [facility] US OB GROWTHon 04-05-[address] [address] Ultrasound Report Signed Patient: VINNY DOWNEY MR#: [id number] : 2000 Acct:[id number] Age/Sex: 24 / F ADM Date: 04/05/25 Loc: US Attending Dr: Virgil Barton Ordering Physician: Virgil Barton Date of Service: 04/05/25 Procedure(s): US OB growth Accession Number(s): [id number] cc: Virgil Barton; Physician,Non-Staff Khadar [place] [address] Patient Name: VINNY DOWNEY MRN: [facility]:[id number] date: 2000 Sex: F Assigned Patient Location: US Current Patient Location: LAB Accession/Order Number: [id number] Exam Date: 04/05/2025 10:00 Report Date: 04/05/2025 [...] Peraza M.D. 04/05/2025 12:08 PM Dictation Location: [place] [address] Electronically authenticated by: [id number] Y Date: 04/05/2025 12:08 Dictated By: Daryn Peraza D.O. Signed By: 04/05/25 1211 DD/ 1208 TD/TT: Image Scientist: [facility] Radiology, Radiologist, MD - 04/05/2025 [place] [address] Ultrasound Report Signed Patient: VINNY DOWNEY MR#: [id number] : 2000 Acct:[id number] Age/Sex: 24 / F ADM Date: 04/05/25 Loc: US Attending Dr: Virgil Barton Ordering Physician: Virgil Barton Date of Service: 04/05/25 Procedure(s): US OB growth Accession Number(s): [id number] cc: Virgil Barton; Physician,Non-Staff Khadar [place] [id number] Patient Name: VINNY DOWNEY MRN: [facility]:[id number] date: 2000 Sex: F Assigned Patient Location: US Current Patient Location: LAB Accession/Order Number: [id number] Exam Date: 04/05/2025 10:00 Report Date: 04/05/2025 [...] Peraza M.D. 04/05/2025 12:08 PM Dictation Location: [employer] Electronically authenticated by: [id number] Y Date: 04/05/2025 12:08 Dictated By: Daryn Peraza D.O. Signed By: 04/05/25 1211 DD/ 1208 TD/TT: Image Scientist: [facility] Radiology Study observation (narrative) [facility] OB GROWTHOrdered By: Kady ologist Radiology on 04-05-2025 [facility] Work Phone: Urinalysis macro (dipstick) panel (U)on 04-03-2025 Bilirubin, UA Negative Negative - 4(70) +++ mg/dL [facility] Blood, UA Negative Negative - 50 Yunior/mcL [facility] Clarity, UA Clear [facility] Color, UA Yellow [facility] Glucose, UA Negative Negative - 2000(110) ++++ mg/dL [facility] Interpretation and review of laboratory results Abnormal [facility] Ketones, UA Negative Negative - 160(16) ++++ mg/dL [facility] Leukocytes, UA Positive Negative - 500+++ Trip/mcL [facility] Nitrite, UA Negative Negative - Positive [facility] pH, UA 6.5 5 - 9 [facility] Protein, UA Negative Negative - 1999(20) ++++ mg/dL [facility] Spec Grav, UA 1.01 1 - 1.03 [facility] Urobilinogen, UA 1.0 0.2 - 12 mg/dL [facility] Urinalysis macro (dipstick) panel (U)on 03-12-2025 Bilirubin, UA Negative Negative - 4(70) +++ mg/dL [facility] Blood, UA Negative Negative - 50 Yunior/mcL [facility] Clarity, UA Clear [facility] Color, UA Yellow [facility] Glucose, UA Negative Negative - 1999(110) ++++ mg/dL [facility] Interpretation and review of laboratory results Normal [facility] Ketones, UA Negative Negative - 160(16) ++++ mg/dL [facility] Leukocytes, UA Negative Negative - 500+++ Trip/mcL [facility] Nitrite, UA Negative Negative - Positive [facility] pH, UA 6.5 5 - 9 [facility] Protein, UA Negative Negative - 1999(20) ++++ mg/dL [facility] Spec Grav, UA 1.01 1 - 1.03 [facility] Urobilinogen, UA 1.0 0.2 - 12 mg/dL [facility] Urinalysis macro (dipstick) panel (U)on 02-26-2025 Bilirubin, UA Negative Negative - 4(70) +++ mg/dL [facility] Blood, UA Negative Negative - 50 Yunior/mcL [facility] Healthcare Clarity, UA Clear [facility] Color, UA Yellow [facility] Glucose, UA Negative Negative - 1999(110) ++++ mg/dL [facility] Interpretation and review of laboratory results Normal [facility] Ketones, UA Negative Negative - 160(16) ++++ mg/dL [facility] Leukocytes, UA Negative Negative - 500+++ Trip/mcL [facility] Nitrite, UA Negative Negative - Positive [facility] pH, UA 6 5 - 9 [facility] Protein, UA Negative Negative - 1999(20) ++++ mg/dL [facility] Spec Grav, UA 1.01 1 - 1.03 [facility] Urobilinogen, UA 0.2 0.2 - 12 mg/dL [facility] US OB 14+ WEEKS ANATOMY [...] UA Negative Negative - 4(70) +++ mg/dL [facility] Blood, UA Negative Negative - 50 Yunior/mcL [facility] Clarity, UA Clear [facility] Color, UA Yellow [facility] Glucose, UA Negative Negative - 1999(110) ++++ mg/dL [facility] Interpretation and review of laboratory results Normal [facility] Ketones, UA Negative Negative - 160(16) ++++ mg/dL [facility] Leukocytes, UA Negative Negative - 500+++ Trip/mcL [facility] Nitrite, UA Negative Negative - Positive [facility] pH, UA 6.5 5 - 9 [facility] Protein, UA Negative Negative - 1999(20) ++++ mg/dL [facility] Spec Grav, UA 1.025 1 - 1.03 [facility] Urobilinogen, UA 1.0 0.2 - 12 mg/dL [facility] RECURRENT VAGINITIS (HTRX)on 01-17-2025 ATOPOBIUM VAGINAE 0 [facility] ATOPOBIUM VAGINAE Not detected [facility] BVAB 2,3 (BACTERIAL VAGINOSIS ASSOCIATED BACTERIA 2, 3); MOBILUNCUS SPP 0 [facility] BVAB 2,3 (BACTERIAL VAGINOSIS ASSOCIATED BACTERIA 2, 3); MOBILUNCUS SPP Not detected [facility] AINSLEY ALBICANS, PARAPSILOSIS, TROPICALIS 0 [facility] AINSLEY ALBICANS, PARAPSILOSIS, TROPICALIS Not detected [facility] AINSLEY GLABRATA 0 [facility] AINSLEY GLABRATA Not detected [facility] AINSLEY KRUSEI 0 [facility] AINSLEY KRUSEI Not detected [facility] CHLAMYDIA TRACHOMATIS 0 [facility] CHLAMYDIA TRACHOMATIS Not detected [facility] GARDNERELLA VAGINALIS 0 [facility] GARDNERELLA VAGINALIS Not detected [facility] MEGASPHAERA (TYPES 1, 2) 0 [facility] MEGASPHAERA (TYPES 1, 2) Not detected [facility] MYCOPLASMA GENITALIUM 0 [facility] MYCOPLASMA GENITALIUM Not detected [facility] NEISSERIA GONORRHOEAE 0 [facility] NEISSERIA GONORRHOEAE Not detected [facility] TRICHOMONAS VAGINALIS 0 [facility] TRICHOMONAS VAGINALIS Not detected [facility] CBCon 01-07-2025 Erythrocyte distribution width (RBC) [Ratio] 12.6 % 11.8 - 14.4 % [facility] Hematocrit (Bld) [Volume fraction] 35.4 % Low 36.3 - 47.1 % [facility] Hemoglobin (Bld) [Mass/Vol] 11.7 g/dL Low 11.9 - 15.1 g/dL [facility] Interpretation and review of laboratory results Abnormal [facility] MCH (RBC) [Entitic mass] 30 pg 25.2 - 33.5 pg [facility] MCHC (RBC) [Mass/Vol] 33.1 g/dL 28.4 - 34.8 g/dL [facility] MCV (RBC) [Entitic vol] 90.8 fL 82.6 - 102.9 fL [facility] Nucleated RBC/100 WBC (Bld) [Ratio] 0 % 0.0 per 100 WBC [facility] Platelet mean volume (Bld) [Entitic vol] 8.7 fL 8.1 - 13.5 fL [facility] Platelets (Bld) [#/Vol] 316 10*3/uL [facility] RBC (Bld) [#/Vol] 3.9 10*6/uL Low 3.95 - 5.1 1 m/uL [facility] WBC other (Bld) [#/Vol] 10.2 [facility] Erythrocyte distribution width (RBC) [Ratio] 12.6 % Normal 11.8-14.4 [facility] Comment on above: Performed By: #### G LUSILVINO, CBC #### [address] [place] [address] Air Quality Instrument Specialist: Yelena Greco MD Hematocrit (Bld) [Volume fraction] 35.4 % Low 36.3-47.1 [facility] Comment on above: Performed By: #### G LUSC, CBC #### [address] [place] [place] [address] Air Quality Instrument Specialist: Yelena Greco MD Hemoglobin (Bld) [Mass/Vol] 11.7 g/dL Low 11.9-15.1 [facility] Comment on above: Performed By: #### G LUSC, CBC #### [address] [place] [place] [address] Air Quality Instrument Specialist: Yelena Greco MD MCH (RBC) [Entitic mass] 30.0 pg Normal 25.2-33.5 [facility] Comment on above: Performed By: #### G LUSC, CBC #### [address] [place] [place] [address] Air Quality Instrument Specialist: Yelena Greco MD MCHC (RBC) [Mass/Vol] 33.1 g/dL Normal 28.4-34.8 [facility] Comment on above: Performed By: #### G LUSC, CBC #### [address] [place], [place] [address] Air Quality Instrument Specialist: Yelena Greco MD MCV (RBC) [Entitic vol] 90.8 fL Normal 82.6-102.9 [facility] Comment on above: Performed By: #### G LUSC, CBC #### [address] [place], [place] [id number] Air Quality Instrument Specialist: Yelena Greco MD NRBC Automated 0.0 per 100 WBC Normal 0.0 [facility] Comment on above: Performed By: #### G JANAE, CBC #### [address] [place], [place] [id number] Air Quality Instrument Specialist: Yelena Greco MD Platelet mean volume (Bld) [Entitic vol] 8.7 fL Normal 8.1-13.5 [facility] Comment on above: Performed By: #### G JANAE, CBC #### [address] [place], [place] [id number] Air Quality Instrument Specialist: Yelena Greco MD Platelets (Bld) [#/Vol] 316 10*3/uL Normal 138-453 [facility] Comment on above: Performed By: #### G JANAE, CBC #### [address] [place], [place] [id number] Air Quality Instrument Specialist: Yelena Greco MD RBC (Bld) [#/Vol] 3.90 10*6/uL Low 3.95-5.11 [facility] Comment on above: Performed By: #### G JANAE, CBC #### [address] [place], [place] [address] Air Quality Instrument Specialist: Yelena Greco MD WBC (Bld) [#/Vol] 10.2 10*3/uL Normal 3.5-11.3 [facility] Comment on above: Performed By: #### G JANAE, CBC #### [address] [place] [place] [address] Air Quality Instrument Specialist: Yelena Greco MD Glucose Challenge Gestationa harlan 01-07-2025 GLU ADMN Glucola [facility] Glucose 1 Hr post 50 g glucose PO [Mass/Vol] 184 mg/dL High 70 - 135 mg/dL [facility] Interpretation and review of laboratory results Abnormal [facility] Glucose Toya Scr 50gon 2024 Glucose [Mass/Vol] 184 mg/dL High 70-135 [facility] Comment on above: Performed By: #### G LUSC, CBC #### [facility] [address] [place] [place] [address] Air Quality Instrument Specialist: Yelena Greco MD Glu Administered via Glucola Normal [facility] Comment on above: Performed By: #### G LUSC, CBC #### [facility] [address] [place] [id number] [employer] Quality Instrument Specialist: Yelena Greco MD US OB LESS [...] by: Noah Rivero MD 12/23/24 Final result [facility] Radiology, Radiologist, - 12/23/2024 EXAMINATION: [...] by: Noah Rivero MD 12/23/24 Final result [facility] Radiology Study observation (narrative) [facility] US OB LESS THAN 14 WEEKS SIN GLE OR FIRST GESTATIONOrdered By: Radiologist Radiology on 12-23-2024 [facility] Work Phone: US OB LESS THAN 14 [...] Noah Rivero MD 12/23/24 Final result Normal [facility] Urinalysis macro (dipstick) panel (U)on 12-18-2024 Bilirubin, UA Negative Negative - 4(70) +++ mg/dL [facility] Blood, UA Positive Negative - 50 Yunior/mcL [facility] Clarity, UA Clear [facility] Color, UA Yellow [facility] Glucose, UA Negative Negative - 1999(110) ++++ mg/dL [facility] Interpretation and review of laboratory results Abnormal [facility] Ketones, UA Negative Negative - 160(16) ++++ mg/dL [facility] Leukocytes, UA Negative Negative - 500+++ Trip/mcL [facility] Nitrite, UA Negative Negative - Positive [facility] pH, UA 7 5 - 9 [facility] Protein, UA Negative Negative - 1999(20) ++++ mg/dL [facility] Spec Grav, UA 1.01 1 - 1.03 [facility] Urobilinogen, UA 1.0 0.2 - 12 mg/dL [facility] HCG ( test) Ql (U)o n 11-14-2024 Interpretation and review of laboratory results Abnormal [facility] Preg Test, Ur Positive Negative [facility] US OB TRANSVAGINALon 025 US [...] II, MD, PHD at 15-Nov-2024 09:44:32 AM [facility] Normal Not Available Comment on above: Order Comment: US OB TRANSVAGINAL No LMP recorded. Urinalysis macro (dipstick) panel (U)on 11-14-2024 Bilirubin, UA Negative Negative - 4(70) +++ mg/dL [facility] Blood, UA Negative Negative - 50 Yunior/mcL [facility] Clarity, UA Clear [facility] Color, UA Yellow [facility] Glucose, UA Negative Negative - 1999(110) ++++ mg/dL [facility] Interpretation and review of laboratory results Normal [facility] Ketones, UA Negative Negative - 160(16) ++++ mg/dL [facility] Leukocytes, UA Negative Negative - 500+++ Trip/mcL [facility] Nitrite, UA Negative Negative - Positive [facility] pH, UA 6.5 5 - 9 [facility] Protein, UA Negative Negative - 1999(20) ++++ mg/dL [facility] Spec Grav, UA 1.005 1 - 1.03 [facility] Urobilinogen, UA 0.2 0.2 - 12 mg/dL [facility] IGP,APTIMA HPV,AGE GDLNon AGE GDLN ACOG TESTING Note . [facility] Comment on above: TESTS RESULT FLAG U NITS REF RANGE LAB Clinician Provided Cytology Information Source.............Cervix;Endocervix No. of containers..01 ThinPrep Vial Age Algo ACOG Addie... FLAG LEGEND: L-Low Normal,H-High Normal,LL-Alert Low,HH-Alert High <-Panic Low,>-Panic High,A-Abnormal,AA-Critical Abnormal Performed at: 01 =G [facility] [place] [address] Anastasiya Moses MD, IGP, RFX APTIMA HPV ASCU Note . [facility] Comment on above: TESTS RESULT FLAG UN ITS REF RANGE LAB DIAGNOSIS: 02 NEGATIVE FOR INTRAEPITHELIAL LESION OR MALIGNANCY. Specimen adequacy: 02 Satisfactory for evaluation. Endocervical and/or squamous metaplastic cells (endocervical component) are present. Performed by: 02 Maico Galaviz, Clinical Laboratory Science Professor ([facility]) . 02 Note: Note [...] <-Panic Low,>-Panic High,A-Abnormal,AA-Critical Abnormal Performed at: [address] [place] [address] Anastasiya Moses MD, Performed at: = - [facility], [place] [id number] Air Quality Instrument Specialist: Anastasiya Moses MD, Phone: [phone] Performed at: [place] [address] [address] [place] [id number] Air Quality Instrument Specialist: Anastasiya Moses MD, Phone: [phone] BRUSH-SPATULA CERVIX ENDOCERVIX [facility] Comp Metabolic Profon 2023 Albumin [Mass/Vol] 4.6 g/dL Normal 3.5-5.2 [facility] Comment on above: Performed By: #### C P #### [facility] [address] [place], [place] [id number] Air Quality Instrument Specialist: Yelena Greco MD Albumin/Glob Ratio 1.5 Normal 1.0-2.5 [facility] Comment on above: Performed By: #### C P #### [facility] [address] [place], [place] [address] Air Quality Instrument Specialist: Yelena Greco MD Alkaline Phos 71 U/L Normal 35-104 [facility] Comment on above: Performed By: #### C P #### [facility] [address] [place], [place] [id number] Air Quality Instrument Specialist: Yelena Greco MD ALT [Catalytic activity/Vol] 41 U/L High 10-35 [facility] Comment on above: Performed By: #### C P #### [facility] [address] [place] [address] Air Quality Instrument Specialist: Yelena Greco MD Anion gap [Moles/Vol] 10 mmol/L Normal 9-16 [facility] Comment on above: Performed By: #### C P #### [facility] Lab [address] [place], [place] [id number] Air Quality Instrument Specialist: Yelena Greco MD AST [Catalytic activity/Vol] 34 U/L Normal 10-35 [facility] Comment on above: Performed By: #### C P #### [facility] Lab [address] [place], [place] 756[address]83 Air Quality Instrument Specialist: Yelena Greco MD Bilirubin [Mass/Vol] 0.4 mg/dL Normal 0.00-1.20 [facility] Comment on above: Performed By: #### C P #### [facility] Lab [address] [place], [place] [id number] Air Quality Instrument Specialist: Yelena Greco MD BUN/CRE Ratio 22 High 9-20 [facility] Comment on above: Performed By: #### C P #### [facility] [address] [place], [place] 55[address]83 Air Quality Instrument Specialist: Yelena Greco MD Calcium [Mass/Vol] 9.4 mg/dL Normal 8.6-10.4 [facility] Comment on above: Performed By: #### C P #### [facility] [address] [place], [place] 1350983 Air Quality Instrument Specialist: Yelena Greco MD Chloride [Moles/Vol] 103 mmol/L Normal 98-107 [facility] Comment on above: Performed By: #### C P #### [facility] [address] [place], [place] 6153883 Air Quality Instrument Specialist: Yelena Greco MD CO2 [Moles/Vol] 25 mmol/L Normal 20-31 [facility] Comment on above: Performed By: #### C P #### [facility] [address] [place] [id number] [employer] Quality Instrument Specialist: Yelena Greco MD Creatinine [Mass/Vol] 0.6 mg/dL Normal 0.50-0.90 [facility] Comment on above: Performed By: #### C P #### [facility] [address] [place], [place] 4388683 [employer] Quality Instrument Specialist: Yelena Greco MD GFR/1.73 sq M.predicted among non-blacks MDRD (S/P/Bld) [Vol rate/Area] mL/min/{1.73_m2} Normal >60 [facility] Comment on above: Result Comment: These [...] secretion. Performed By: #### C P #### [facility] [address] [place] [place] [address] Air Quality Instrument Specialist: Yelena Greco MD Glucose [Mass/Vol] 83 mg/dL Normal 74-99 [facility] Comment on above: Performed By: #### C P #### [facility] [address] [place], [place] 5351283 [employer] Quality Instrument Specialist: Yelena Greco MD Potassium [Moles/Vol] 4.6 mmol/L Normal 3.7-5.3 [facility] Comment on above: Performed By: #### C P #### [facility] [address] [place], [place] 5167483 Air Quality Instrument Specialist: Yelena Greco MD Protein [Mass/Vol] 7.8 g/dL Normal 6.6-8.7 [facility] Comment on above: Performed By: #### C P #### [facility] [address] [place] [address] Dr. [place], [place] 1351883 [employer] Quality Instrument Specialist: Yelena Greco MD Sodium [Moles/Vol] 138 mmol/L Normal 136-145 [facility] Comment on above: Performed By: #### C P #### [facility] [address] [place], [place] 8234183 [employer] Quality Instrument Specialist: Yelena Greco MD Urea nitrogen [Mass/Vol] 13 mg/dL Normal 6-20 [facility] Comment on above: Performed By: #### C P #### [facility] [address] [place] [address] [employer] Quality Instrument Specialist: Yelena Greco MD [facility] Metabolic Radha claros 05-20-2024 Albumin [Mass/Vol] 4.6 g/dL 3.5 - 5.2 g/dL [facility] Albumin/Globulin [Mass ratio] 1.5 {ratio} 1.0 - 2.5 [facility] ALP [Catalytic activity/Vol] 71 U/L 35 - 104 U/L [facility] ALT [Catalytic activity/Vol] 41 U/L High 10 - 35 U/L [facility] Anion gap [Moles/Vol] 10 mmol/L 9 - 16 mmol/L [facility] AST [Catalytic activity/Vol] 34 U/L 10 - 35 U/L [facility] Bilirubin [Mass/Vol] 0.4 mg/dL 0.00 - 1.20 mg/dL [facility] Calcium [Mass/Vol] 9.4 mg/dL 8.6 - 10. 4 mg/dL [facility] Chloride [Moles/Vol] 103 mmol/L 98 - 107 mmol/L [facility] CO2 [Moles/Vol] 25 mmol/L 20 - 31 mmol/L [facility] Creatinine [Mass/Vol] 0.6 mg/dL 0.50 - 0.90 mg/dL [facility] Est, Cynthia Buttt Rate - PINF [facility] Comment on above: These results are [...] 83 mg/dL 74 - 99 mg/dL [facility] Interpretation and review of laboratory results Abnormal [facility] Potassium [Moles/Vol] 4.6 mmol/L 3.7 - 5.3 mmol/L [facility] Protein [Mass/Vol] 7.8 g/dL 6.6 - 8.7 g/dL [facility] Sodium [Moles/Vol] 138 mmol/L 136 - 145 mmol/L [facility] Urea nitrogen [Mass/Vol] 13 mg/dL 6 - 20 mg/dL [facility] Urea nitrogen/Creatinine [Mass ratio] 22 mg/mg High 9 - 20 [facility] Lipid Panelon 05-20-2024 Cholesterol [Mass/Vol] 152 mg/dL 0 - 199 mg/dL [facility] Comment on above: Cholesterol Guidelines: <200 Desirable 200-240 Borderline >240 Undesirable Cholesterol in HDL [Mass/Vol] 33 mg/dL Low 40 - PINF mg/dL [facility] Comment on above: HDL Guidelines: <40 Undesirable 40-59 Borderline >59 Desirable Cholesterol in LDL [Mass/Vol] 88 mg/dL 0 - 100 mg/dL [facility] Comment on above: LDL Guidelines: <100 Desirable 100-129 Near to/above Desirable 130-159 Borderline >159 Undesirable Direct (measured) LDL and calculated LDL are not interchangeable tests. Cholesterol in VLDL [Mass/Vol] 31 mg/dL [facility] Cholesterol.total/Ch olesterol in HDL [Mass ratio] 5.0 {ratio} [facility] Interpretation and review of laboratory results Abnormal [facility] Triglyceride [Mass/Vol] 156 mg/dL High NINF - 150 mg/dL [facility] Comment on above: Triglyceride Guidelines: <150 Desirable 150-199 Borderline 200-499 High >499 Very high Based on AHA Guidelines for fasting triglyceride, April 2012. [facility] Lipid Profileon 05-20-2024 Cholesterol [Mass/Vol] 152 mg/dL Normal 0-199 [facility] Comment on above: Result Comment: Cholesterol Guidelines: <200 Desirable 200-240 Borderline >240 Undesirable Performed By: #### L IPR #### [address] [place], [place] 45[address] Air Quality Instrument Specialist: Osvaldo Santamaria MD Cholesterol in HDL [Mass/Vol] 33 mg/dL Low >40 [facility] Comment on above: Result Comment: HDL Guidelines: <40 Undesirable 40-59 Borderline >59 Desirable Performed By: #### L IPR #### [address] [place], [place] 059[address] [employer] Quality Instrument Specialist: Osvaldo Santamaria MD Cholesterol in LDL [Mass/Vol] 88 mg/dL Normal 0-100 [facility] Comment on above: Result Comment: LDL Guidelines: <100 Desirable 100-129 Near to/above Desirable 130-159 Borderline >159 Undesirable Direct (measured) LDL and calculated LDL are not interchangeable tests. Performed By: #### L IPR #### [address] [facility] [place] [address] Air Quality Instrument Specialist: Osvaldo Santamaria MD Cholesterol in VLDL [Mass/Vol] 31 mg/dL Normal [facility] Comment on above: Performed By: #### L IPR #### [address] [facility] [place] [address] Air Quality Instrument Specialist: Osvaldo Santamaria MD Cholesterol.total/Ch olesterol in HDL [Mass ratio] 5.0 {ratio} Normal [facility] Comment on above: Performed By: #### L IPR #### [address] [place] [address] Air Quality Instrument Specialist: Osvaldo Santamaria MD Triglyceride [Mass/Vol] 156 mg/dL High <150 [facility] Comment on above: Result Comment: Triglyceride Guidelines: <150 Desirable 150-199 Borderline 200-499 High >499 Very high Based on AHA Guidelines for fasting triglyceride, April 2012. Performed By: #### L IPR #### [address] [facility] [place] [address] Air Quality Instrument Specialist: Osvaldo Santamaria MD US GALLBLADDER RUQon 024 US GALLBLADDER RUQ EXAMINATION: RIGHT UPPER QUADRANT ULTRASOUND 03/06/2024 9:58 am COMPARISON: None. HISTORY: ORDERING SYSTEM PROVIDED HISTORY: Elevated liver enzymes TECHNOLOGIST PROVIDED HISTORY: This procedure can be scheduled via [employer]. elevated liver enzymes, fam hx gallbladder disease. [...] Hernandez Stewart MD 03/06/24 Final result Normal [facility] CBCon 02-16-2024 Erythrocyte distribution width (RBC) [Ratio] 12.4 % Normal 11.8-14.4 [facility] Comment on above: Performed By: #### F EBC #### [address] [address] [employer] Quality Instrument Specialist: Osvaldo Santamaria MD #### CBC, CP #### [address] [place] [place] [address] Air Quality Instrument Specialist: Yelena Greco MD Hematocrit (Bld) [Volume fraction] 40.2 % Normal 36.3-47.1 [facility] Comment on above: Performed By: #### F EBC #### [address] [address] [employer] Quality Instrument Specialist: Osvaldo Santamaria MD #### CBC, CP #### [address] [place] [place] [address] Air Quality Instrument Specialist: Yelena Greco MD Hemoglobin (Bld) [Mass/Vol] 13.5 g/dL Normal 11.9-15.1 [facility] Comment on above: Performed By: #### F EBC #### [address] [address] Air Quality Instrument Specialist: Osvaldo Santamaria MD #### CBC, CP #### [address] [place] [place] [address] Air Quality Instrument Specialist: Yelena Greco MD MCH (RBC) [Entitic mass] 29.8 pg Normal 25.2-33.5 [facility] Comment on above: Performed By: #### F EBC #### [address] [address] Air Quality Instrument Specialist: Osvaldo Santamaria MD #### CBC, CP #### [address] [place], [place] 25[address]83 Air Quality Instrument Specialist: Yelena Greco MD MCHC (RBC) [Mass/Vol] 33.6 g/dL Normal 28.4-34.8 [facility] Comment on above: Performed By: #### F EBC #### [address] [address] Air Quality Instrument Specialist: Osvaldo Santamaria MD #### CBC, CP #### [address] [place] [place] [address] Air Quality Instrument Specialist: Yelena Greco MD MCV (RBC) [Entitic vol] 88.7 fL Normal 82.6-102.9 [facility] Comment on above: Performed By: #### F EBC #### [address] [address] Air Quality Instrument Specialist: Osvaldo Santamaria MD #### CBC, CP #### [address] [place] [place] [address] Air Quality Instrument Specialist: Yelena Greco MD NRBC Automated 0.0 per 100 WBC Normal 0.0 [facility] Comment on above: Performed By: #### F EBC #### [address] [address] Air Quality Instrument Specialist: Osvaldo Santamaria MD #### CBC, CP #### [address] [place] [place] [address] Air Quality Instrument Specialist: Yelena Greco MD Platelet mean volume (Bld) [Entitic vol] 8.5 fL Normal 8.1-13.5 [facility] Comment on above: Performed By: #### F EBC #### [address] [id number] Air Quality Instrument Specialist: Osvaldo Santamaria MD #### CBC, CP #### [address] [place] [place] [address] Air Quality Instrument Specialist: Yelena Greoc MD Platelets (Bld) [#/Vol] 309 10*3/uL Normal 138-453 [facility] Comment on above: Performed By: #### F EBC #### [address] [address] Air Quality Instrument Specialist: Osvaldo Santamaria MD #### CBC, CP #### [address] [place] [place] [address] Air Quality Instrument Specialist: Yelena Greco MD RBC (Bld) [#/Vol] 4.53 10*6/uL Normal 3.95-5.11 [facility] Comment on above: Performed By: #### F EBC #### [address] [address] Air Quality Instrument Specialist: Osvaldo Santamaria MD #### CBC, CP #### [address] [place] [place] [address] Air Quality Instrument Specialist: Yelena Greco MD WBC (Bld) [#/Vol] 6.5 10*3/uL Normal 3.5-11.3 [facility] Comment on above: Performed By: #### F EBC #### [address] [address] Air Quality Instrument Specialist: Osvaldo Santamaria MD #### CBC, CP #### [address] [place] [place] [address] Air Quality Instrument Specialist: Yelena Greco MD Comp Metabolic Profon 2023 Albumin [Mass/Vol] 4.5 g/dL Normal 3.5-5.2 [facility] Comment on above: Performed By: #### F EBC #### [address] [address] Air Quality Instrument Specialist: Osvaldo Santamaria MD #### CBC, CP #### [facility] [address] [place], [place] 3017[address] Air Quality Instrument Specialist: Yelena Greco MD Albumin/Glob Ratio 1.5 Normal 1.0-2.5 [facility] Comment on above: Performed By: #### F EBC #### [address] [address] Air Quality Instrument Specialist: Osvaldo Santamaria MD #### CBC, CP #### [facility] [address] [place] [address] Air Quality Instrument Specialist: Yelena Greco MD Alkaline Phos 74 U/L Normal 35-104 [facility] Comment on above: Performed By: #### F EBC #### [address] [address] Air Quality Instrument Specialist: Osvaldo Santamaria MD #### CBC, CP #### [facility] [address] [place] [address] [place], [place] 0234[address] Air Quality Instrument Specialist: Yelena Greco MD ALT [Catalytic activity/Vol] 61 U/L High 5-33 [facility] Comment on above: Performed By: #### F EBC #### [address] [address] Air Quality Instrument Specialist: Osvaldo Santamaria MD #### CBC, CP #### [facility] [address] [place], [place] [address]49[address]83 Air Quality Instrument Specialist: Yelena Greco MD Anion gap [Moles/Vol] 8 mmol/L Low 9-17 [facility] Comment on above: Performed By: #### F EBC #### [address] [address] Air Quality Instrument Specialist: Osvaldo Santamaria MD #### CBC, CP #### [facility] [address] [place], [place] [address]78[address]83 Air Quality Instrument Specialist: Yelena Greco MD AST [Catalytic activity/Vol] 43 U/L High <32 [facility] Comment on above: Performed By: #### F EBC #### [facility] [address] [place] [address] Air Quality Instrument Specialist: Osvaldo Santamaria MD #### CBC, CP #### [facility] [address] [place] [address] [place]. [place], [place] 0213383 Air Quality Instrument Specialist: Yelena Greco MD Bilirubin [Mass/Vol] 0.2 mg/dL Low 0.3-1.2 [facility] Comment on above: Performed By: #### F EBC #### [address] [address] Air Quality Instrument Specialist: Osvaldo Santamaria MD #### CBC, CP #### [address] [place], [place] 3814483 Air Quality Instrument Specialist: Yelena Greco MD BUN/CRE Ratio 20 Normal 9-20 [facility] Comment on above: Performed By: #### F EBC #### [address] [address] Air Quality Instrument Specialist: Osvaldo Santamaria MD #### CBC, CP #### [address] [place], [place] 9379783 Air Quality Instrument Specialist: Yelena Greco MD Calcium [Mass/Vol] 9.4 mg/dL Normal 8.6-10.4 [facility] Comment on above: Performed By: #### F EBC #### [address] [address] Air Quality Instrument Specialist: Osvaldo Santamaria MD #### CBC, CP #### [address] [place], [place] 558[address]83 Air Quality Instrument Specialist: Yelena Greco MD Chloride [Moles/Vol] 100 mmol/L Normal 98-107 [facility] Comment on above: Performed By: #### F EBC #### [facility] [address] [place], [place] 0432[address] Air Quality Instrument Specialist: Osvaldo Santamaria MD #### CBC, CP #### [facility] [address] [place] [address] Air Quality Instrument Specialist: Yelena Greco MD CO2 [Moles/Vol] 28 mmol/L Normal 20-31 [facility] Comment on above: Performed By: #### F EBC #### [facility] [address] [place] [address] Air Quality Instrument Specialist: Osvaldo Santamaria MD #### CBC, CP #### [facility] [address] [place] [address] Air Quality Instrument Specialist: Yelena Greco MD Creatinine [Mass/Vol] 0.6 mg/dL Normal 0.5-0.9 [facility] Comment on above: Performed By: #### F EBC #### [facility] [address] [place] [address] Air Quality Instrument Specialist: Osvaldo Santamaria MD #### CBC, CP #### [facility] [address] [place] [address] Air Quality Instrument Specialist: Yelena Greco MD GFR/1.73 sq M.predicted among non-blacks MDRD (S/P/Bld) [Vol rate/Area] mL/min/{1.73_m2} Normal >60 [facility] Comment on above: Result Comment: These [...] secretion. Performed By: #### F EBC #### [address] [address] Air Quality Instrument Specialist: Osvaldo Santamaria MD #### CBC, CP #### [address] [place], [place] 4725883 Air Quality Instrument Specialist: Yelena Greco MD Glucose [Mass/Vol] 91 mg/dL Normal 70-99 [facility] Comment on above: Performed By: #### F EBC #### [address] [address] Air Quality Instrument Specialist: Osvaldo Santamaria MD #### CBC, CP #### [address] [place], [place] 9887883 Air Quality Instrument Specialist: Yelena Greco MD Potassium [Moles/Vol] 4.2 mmol/L Normal 3.7-5.3 [facility] Comment on above: Performed By: #### F EBC #### [address] [address] Air Quality Instrument Specialist: Osvaldo Santamaria MD #### CBC, CP #### [address] [place], [place] 1402183 Air Quality Instrument Specialist: Yelena Greco MD Protein [Mass/Vol] 7.6 g/dL Normal 6.4-8.3 [facility] Comment on above: Performed By: #### F EBC #### [address] [address] Air Quality Instrument Specialist: Osvaldo Santamaria MD #### CBC, CP #### [address] [place], [place] 2208683 Air Quality Instrument Specialist: Yelena Greco MD Sodium [Moles/Vol] 136 mmol/L Normal 135-144 [facility] Comment on above: Performed By: #### F EBC #### [address] [address] Air Quality Instrument Specialist: Osvaldo Santamaria MD #### CBC, CP #### [facility] [address] [place] [place] [address] Air Quality Instrument Specialist: Yelena Greco MD Urea nitrogen [Mass/Vol] 12 mg/dL Normal 6-20 [facility] Comment on above: Performed By: #### F EBC #### [address] [address] Air Quality Instrument Specialist: Osvaldo Santamaria MD #### CBC, CP #### [facility] [address] [place] [address] Air Quality Instrument Specialist: Yelena Greco MD Iron Binding Cap.on 02-16-20 24 % Fe Saturation 25 % Normal 20-55 [facility] Comment on above: Performed By: #### F EBC #### [address] [address] [employer] Quality Instrument Specialist: Osvaldo Santamaria MD #### CBC, CP #### [address] [place] [address] Air Quality Instrument Specialist: Yelena Greco MD Iron [Mass/Vol] 92 ug/dL Normal 37-145 [facility] Comment on above: Performed By: #### F EBC #### [address] [address] Air Quality Instrument Specialist: Osvaldo Santamaria MD #### CBC, CP #### [facility] [address] [place], [place] 4844683 Air Quality Instrument Specialist: Yelena Greco MD Total Fe Binding Cap 373 ug/dL Normal 250-450 [facility] Comment on above: Performed By: #### F EBC #### [address] [address] Air Quality Instrument Specialist: Osvaldo Santamaria MD #### CBC, CP #### [facility] [address] [place], [place] 2637[address] Air Quality Instrument Specialist: Yelena Greco MD Unbound Fe Bind Cap 281 ug/dL Normal 112-347 [facility] Comment on above: Performed By: #### F EBC #### [facility] [address] [place] [address] Air Quality Instrument Specialist: Osvaldo Santamaria MD #### CBC, CP #### [facility] [address] [place], [place] 3948583 Air Quality Instrument Specialist: Yelena Greco MD Lipid Profileon 02-16-2024 Cholesterol [Mass/Vol] 245 mg/dL High 0-199 [facility] Comment on above: Result Comment: Cholesterol Guidelines: <200 Desirable 200-240 Borderline >240 Undesirable Performed By: #### L IPR #### [address] [address] Air Quality Instrument Specialist: Osvaldo Santamaria MD Cholesterol in HDL [Mass/Vol] 34 mg/dL Low >40 [facility] Comment on above: Result Comment: HDL Guidelines: <40 Undesirable 40-59 Borderline >59 Desirable Performed By: #### L IPR #### [address] [address] Air Quality Instrument Specialist: Osvaldo Santamaria MD Cholesterol in LDL [Mass/Vol] 159 mg/dL High 0-100 [facility] Comment on above: Result Comment: LDL Guidelines: <100 Desirable 100-129 Near to/above Desirable 130-159 Borderline >159 Undesirable Direct (measured) LDL and calculated LDL are not interchangeable tests. Performed By: #### L IPR #### [facility] [address] [place] [address] Air Quality Instrument Specialist: Osvaldo Santamaria MD Cholesterol in VLDL [Mass/Vol] 52 mg/dL Normal [facility] Comment on above: Performed By: #### L IPR #### [address] [place] [address] Air Quality Instrument Specialist: Osvaldo Santamaria MD Cholesterol.total/Ch olesterol in HDL [Mass ratio] 7.0 {ratio} Normal [facility] Comment on above: Performed By: #### L IPR #### [address] [place], [place] [address]80[address] Air Quality Instrument Specialist: Osvaldo Santamaria MD Triglyceride [Mass/Vol] 259 mg/dL High <150 [facility] Comment on above: Result Comment: Triglyceride Guidelines: <150 Desirable 150-199 Borderline 200-499 High >499 Very high Based on AHA Guidelines for fasting triglyceride, April 2012. Performed By: #### L IPR #### [address] [place] [address] Air Quality Instrument Specialist: Osvaldo Santamaria MD Office Visiton 07-11-2023 Follow-up visit [id number] Vinny Downey 1998 [facility] 07/11/2023 241-RAJENDRA SHEFFIELD SAMSON Mccormick Family History Problem Relation Age of Onset Anemia Mother Supraventricular tachycardia Father Hyperlipidemia Father Diabetes Sister Family Status - Relation Status Age at Mother Father Sister Level of Service:26308 [place] OFFICE/OUTPATIENT NEW MODERATE MDM 45 MINUTES Normal [facility] Office Visiton 03-20-2023 Follow-up visit [id number] Vinny Downey 2000 [facility] Center 03/20/2023 ISRAEL ULLOA SAMSON Mccormick Family History Problem Relation Age of Onset Anemia Mother Supraventricular tachycardia Father Hyperlipidemia Father Diabetes Sister Family Status - Relation Status Age at Mother Father Sister Level of Service:27413 [place] OFFICE/OUTPATIENT NEW LOW MDM 30-44 MINUTES Normal [facility] US PREG BIOPHY W NON STRESSo [...] YELENA CARLOS Date: 2022-12-20 07:03 Normal [facility] US PREG PLACENTAon US PREG PLACENTA EXAMINATION: [...] ALFREDO GRANT Date: 2022-12-12 14:56 Normal [facility] US PREG BIOPHY W NON STRESSo n [...] LUIS ALFREDO GRANT Date: 2022-12-11 04:08 Normal [facility] US PREG GROWTHon 12-11-2022 US PREG [...] ALFREDO GRANT Date: 2022-12-11 04:06 Normal [facility] GTT 3 HR PREGon 10-22-2022 Glucose [Mass/Vol] 98 mg/dL Normal 74-106 [facility] Comment on above: Performed By: #### G TT3P #### [facility] Laboratory [address] [place] [address] Dr. Emilee Springer Glucose [Mass/Vol] 170 mg/dL Normal [facility] Comment on above: Performed By: #### G TT3P #### [facility] [address] [place] [address] Dr. Emilee Springer Glucose [Mass/Vol] 201 mg/dL Normal [facility] Comment on above: Performed By: #### G TT3P #### [facility] [address] [place] [address] Dr. Emilee Springer Glucose [Mass/Vol] 115 mg/dL Normal [facility] Comment on above: Performed By: #### G TT3P #### [facility] [address] [place] [address] Dr. Emilee Springer US PREG INCOMPLETE ANATOMYon [...] YELENA CARLOS Date: 2022-10-16 08:44 Normal [facility] [facility] CBC AUTO DIFFon 10-15-2022 BASO # 0.0 103/ul Normal 0.0-0.1 [facility] Comment on above: Performed By: #### C BC #### [facility] [address] [place] [address] Dr. Emilee Springer Basophils/100 WBC (Bld) 0.2 % Normal 0.2-2.0 [facility] Comment on above: Performed By: #### C BC #### [facility] [address] [place] [address] Dr. Emilee Springer EO # 0.1 103/ul Normal 0.0-0.7 [facility] Comment on above: Performed By: #### C BC #### [facility] [address] [place] [address] Dr. Emilee Springer Eosinophils/100 WBC (Bld) 0.8 % Critically low 0.9-7.0 [facility] Comment on above: Performed By: #### C BC #### [facility] [address] [place] [address] Dr. Emilee Springer Erythrocyte distribution width (RBC) [Ratio] 12.5 % Normal 11.0-15.0 [facility] Comment on above: Performed By: #### C BC #### [facility] [address] [place] [address] Dr. Emilee Springer Hematocrit (Bld) [Volume fraction] 29.8 % Critically low 36.0-48.0 [facility] Comment on above: Performed By: #### C BC #### [facility] [address] [place] [address] Dr. Emilee Springer Hemoglobin (Bld) [Mass/Vol] 10.0 g/dL Critically low 12.0-16.0 [facility] Comment on above: Performed By: #### C BC #### [facility] [address] [place] [address] Dr. Emilee Springer IG # 0.05 10e3/ul Critically high 0.00-0.03 [facility] Comment on above: Performed By: #### C BC #### [facility] [address] [place] [address] Dr. Emilee Springer IG % 0.5 % Normal 0.0-0.5 [facility] Comment on above: Performed By: #### C BC #### [facility] [address] [place] [address] Dr. Emilee Springer LYMPH # 1.6 103/ul Normal 1.2-3.8 [facility] Comment on above: Performed By: #### C BC #### [facility] [address] [place] [address] Dr. Emilee Springer Lymphocytes/100 WBC (Bld) 15.3 % Critically low 20.5-60.0 [facility] Comment on above: Performed By: #### C BC #### [facility] [address] [place] [address] Dr. Emilee Springer MANUAL DIFF REQ NO Normal [facility] Comment on above: Performed By: #### C BC #### [facility] [address] [place] [address] Dr. Emilee Springer MCH (RBC) [Entitic mass] 30.2 pg Normal 26.7-34.0 [facility] Comment on above: Performed By: #### C BC #### [facility] [address] [place] [address] Dr. Emilee Springer MCHC (RBC) [Mass/Vol] 33.6 g/dL Normal 29.9-35.2 [facility] Comment on above: Performed By: #### C BC #### [facility] [address] [place] [address] Dr. Emilee Springer MCV (RBC) [Entitic vol] 90.0 fL Normal 81.0-99.0 [facility] Comment on above: Performed By: #### C BC #### [facility] [address] [place] [address] Dr. Emilee Springer MONO # 0.6 103/ul Normal 0.3-0.8 [facility] Comment on above: Performed By: #### C BC #### [facility] [address] [place] [address] Dr. Emilee Springer Monocytes/100 WBC (Bld) 5.8 % Normal 1.7-12.0 [facility] Comment on above: Performed By: #### C BC #### [facility] [address] [address] [address] Emilee Springer NEUT # 8.2 103/ul Critically high 1.4-6.5 [facility] Comment on above: Performed By: #### C BC #### [facility] [address] [place] [address] Dr. Emilee Springer Neutrophils/100 WBC (Bld) 77.4 % Critically high 43.0-75.0 [facility] Comment on above: Performed By: #### C BC #### [facility] [address] [place] [address] Dr. Emilee Springer Platelet mean volume (Bld) [Entitic vol] 8.5 fL Critically low 9.5-13.5 [facility] Comment on above: Performed By: #### C BC #### [facility] [address] [place] [address] Dr. Emilee Springer PLT 347 103/ul Normal 150-450 [facility] Comment on above: Performed By: #### C BC #### [facility] [address] [place] [address] Dr. Emilee Springer RBC 3.31 106/ul Critically low 4.20-5.40 [facility] Comment on above: Performed By: #### C BC #### [facility] [address] [place] [address] Dr. Emilee Springer WBC 10.6 103/ul Normal 4.0-11.0 [facility] Comment on above: Performed By: #### C BC #### [facility] [address] [place] [address] Dr. Emilee Springer GLUCOSE - 1HRon 10-15-2022 Glucose [Mass/Vol] 176 mg/dL Critically high 74-106 [facility] Comment on above: Performed By: #### G LU1HR #### [facility] [address] [place] [address] Dr. Emilee Springer CHLAMYDIA/GONOCOCCUS ANISA (SW AB/URINE/PAPon 09-15-2022 Chlamydia trachomatis, ANISA Negative Normal Negative [facility] Comment on above: Performed By: #### C BC #### [facility] [address] [address] [address] Emilee Springer Neisseria gonorrhoeae, ANISA Negative Normal Negative [facility] Comment on above: Performed By: #### C BC #### [facility] [address] [address] [address] Emilee Springer VAGINITIS/VAGINOSIS DNA PROB Leonid 09-14-2022 Ainsley species Negative Normal Negative [facility] Comment on above: Performed By: #### C BC #### [facility] [address] [address] [address] Emilee Springer Gardnerella vaginalis Negative Normal Negative [facility] Comment on above: Performed By: #### C BC #### [facility] [address] [address] [address] Emilee Springer Trichomonas vaginalis Negative Normal Negative [facility] Comment on above: Performed By: #### C BC #### [facility] [address] [address] [address] Emilee Springer US PREG ANATOMY SINGLEon [...] ALFREDO GRANT Date: 2022-09-13 16:57 Normal [facility] AFP MATERNAL FOR SPINA BIFID Aon 08-31-2022 AFP MoM 0.42 Normal [facility] Comment on above: Performed By: #### A FPMAT #### [facility] [address] [address] [address] Emilee Springer AFP Value 16.7 ng/mL Normal [facility] Comment on above: Performed By: #### A FPMAT #### [facility] [address] [address] [address] Emilee Springer AFP, Serum for Spina Bifida Report Normal [facility] Comment on above: Performed By: #### A FPMAT #### [facility] [address] [address] [address] Emilee Springer Comment Comment Normal [facility] Comment on above: Result Comment: Darío Machado, Ph.D., [facility] Director . References: Available Upon Request. . Multiples Of Median Cutoffs For AFP Elevations Berkowitz 2.5 Black 2.8 IDD 2.0 Twins 4.5 Abbreviation Definitions IDD - Insulin Dep Diabetes OSBR - Open Spina Bifida Risk . For further inquiries contact [employer] [facility] at [phone]. . This test was developed and its performance characteristics determined by [employer]. It has not been cleared or approved by the Food and Drug Administration. Performed By: #### A FPMAT #### [facility] [address] [address] [address] Emilee Worrell Age Collection Date 18.6 weeks Normal [facility] Comment on above: Performed By: #### A FPMAT #### [facility] [address] [address] [address] Emilee Springer Gestat, Age Based on JOCELIN [facility] Comment on above: Result Comment: 12/2022 Recalculations are not recommended when gestational dating by LMP and ultrasound are within 10 days. Performed By: #### A FPMAT #### [facility] [address] [place] [address] Dr. Emilee Springer Insulin Dep Diabetes Comment Normal [facility] Comment on above: Result Comment: Not provided. . Performed By: #### A FPMAT #### [facility] [address] [address] [address] Emilee Springer Interpretation Comment Normal [facility] Comment on above: Result Comment: Inte [...] Customer Services to discuss available options. The [employer] recommends amniocentesis be offered to women age 35 and older. Performed By: #### A FPMAT #### [facility] [address] [place] [address] Dr. Emilee Springer [age] Normal [facility] Comment on above: Performed By: #### A FPMAT #### [facility] [address] [place] [address] Dr. Emilee Springer Multiple Gestation Comment Normal [facility] Comment on above: Result Comment: Not provided. . Performed By: #### A FPMAT #### [facility] [address] [place] [address] Dr. Emilee Springer OSBR [place] [address] [facility] Comment on above: Performed By: #### A FPMAT #### [facility] [address] [place] [address] Dr. Emilee Springer PDF . Normal [facility] Comment on above: Performed By: #### A FPMAT #### [facility] [address] [place] [address] Dr. Emilee Springer Race Comment Normal [facility] Comment on above: Result Comment: Not provided. . Performed By: #### A FPMAT #### [facility] [address] [place] [address] Dr. Emilee Springer Test Results: Negative Normal [facility] Comment on above: Performed By: #### A FPMAT #### [facility] [address] [place] [address] Dr. Emilee Springer Rubella antibody, IgGon -0 Rubella virus IgG Ql (S) 314.5 IU/mL [facility] Comment on above: REFERENCE RANGE: <5.0 NON-REACTIVE (non-immune) 5.0 TO 9.9 EQUIVOCAL >=10.0 REACTIVE (immune) [facility] HEP B SURFACE ANTIGEN SCREEN on 07-05-2022 HBsAg Screen Negative Normal Negative [facility] Comment on above: Performed By: #### H BSANS #### [facility] [address] [place] [address] Dr. Emilee Springer HEPATITIS C VIRUS AB W/ REFL EX QUANTon 07-05-2022 HCV AB <0.1 Normal 0.0-0.9 [facility] Comment on above: Performed By: #### H CVPCRR #### [facility] [address] [place] [address] Dr. Emilee Springer Interpretation: Comment Normal [facility] Comment on above: Result Comment: Nega tive Not infected with HCV, unless recent infection is suspected or other evidence exists to indicate HCV infection. Performed By: #### H CVPCRR #### [facility] [address] [place] [address] Dr. Emilee Springer HIV 1 AND 2 WITH REFLEXon HIV Screen 4th Generation wRfx Non-Reactive Normal Non Reactive [facility] Comment on above: Result Comment: HIV Negative HIV-1/HIV-2 antibodies and HIV-1 p24 antigen were NOT detected. There is no laboratory evidence of HIV infection. Performed By: #### C BC #### [facility] [address] [place] [address] Dr. Emilee Springer RPR QUANTon 07-05-2022 Rapid Plasma Reagin, Quant Non-Reactive Normal NonRea<1:1 [facility] Comment on above: Result Comment: Calvin wilson Note: This test does not meet current guidelines for screening and diagnosis of syphilis. This test is intended for following treatment response in patients being treated for syphilis infection. To screen for syphilis infection, a reflex cascade that includes both RPR and a treponema-specific assay should be utilized, such as Treponema pallidum (Syphilis) Screening [place] (040670) or Rapid Plasma Reagin (RPR) Test With Reflex to Quantitative RPR and Confirmatory Treponema pallidum Antibodies ([id number]). Performed By: #### C BC #### [facility] [address] [place] [address] Dr. Emilee Springer RUBELLA AB IGGon 07-05-2022 Rubella Antibodies, IgG 5.03 index Normal Immune >0.99 [facility] Comment on above: Result Comment: Non- immune <0.90 Equivocal 0.90 - 0.99 Immune >0.99 Performed By: #### R UBIGG #### [facility] [address] [place] [address] Dr. Emilee Springer CBC AUTO DIFFon 07-04-2022 BASO # 0.0 103/ul Normal 0.0-0.1 [facility] Comment on above: Performed By: #### G LU1HR #### [facility] [address] [place] [address] Dr. Emilee Springer Basophils/100 WBC (Bld) 0.2 % Normal 0.2-2.0 [facility] Comment on above: Performed By: #### G LU1HR #### [facility] [address] [place] [address] Dr. Emilee Springer EO # 0.1 103/ul Normal 0.0-0.7 [facility] Comment on above: Performed By: #### G LU1HR #### [facility] [address] [place] [address] Dr. Emilee Springer Eosinophils/100 WBC (Bld) 0.9 % Normal 0.9-7.0 [facility] Comment on above: Performed By: #### G LU1HR #### [facility] [address] [place] [address] Dr. Emilee Springer Erythrocyte distribution width (RBC) [Ratio] 11.9 % Normal 11.0-15.0 [facility] Comment on above: Performed By: #### G LU1HR #### [facility] [address] [place] [address] Dr. Emilee Springer Hematocrit (Bld) [Volume fraction] 32.9 % Critically low 36.0-48.0 [facility] Comment on above: Performed By: #### G LU1HR #### [facility] [address] [place] [address] Dr. Emilee Springer Hemoglobin (Bld) [Mass/Vol] 11.6 g/dL Critically low 12.0-16.0 [facility] Comment on above: Performed By: #### G LU1HR #### [facility] [address] [place] [address] Dr. Emilee Springer IG # 0.03 10e3/ul Normal 0.00-0.03 [facility] Comment on above: Performed By: #### G LU1HR #### [facility] [address] [place] [address] Dr. Emilee Springer IG % 0.3 % Normal 0.0-0.5 [facility] Comment on above: Performed By: #### G LU1HR #### [facility] [address] [place] [address] Dr. Emilee Springer LYMPH # 2.1 103/ul Normal 1.2-3.8 [facility] Comment on above: Performed By: #### G LU1HR #### [facility] [address] [place] [address] Dr. Emilee Springer Lymphocytes/100 WBC (Bld) 20.2 % Critically low 20.5-60.0 [facility] Comment on above: Performed By: #### G LU1HR #### [facility] [address] [place] [address] Dr. Emilee Springer MANUAL DIFF REQ NO Normal [facility] Comment on above: Performed By: #### G LU1HR #### [facility] [address] [place] [address] Dr. Emilee Springer MCH (RBC) [Entitic mass] 31.4 pg Normal 26.7-34.0 [facility] Comment on above: Performed By: #### G LU1HR #### [facility] [address] [place] [address] Dr. Emilee Springer MCHC (RBC) [Mass/Vol] 35.3 g/dL Critically high 29.9-35.2 [facility] Comment on above: Performed By: #### G LU1HR #### [facility] [address] [place] [address] Dr. Emilee Springer MCV (RBC) [Entitic vol] 89.2 fL Normal 81.0-99.0 [facility] Comment on above: Performed By: #### G LU1HR #### [facility] [address] [place] [address] Dr. Emilee Springer MONO # 0.7 103/ul Normal 0.3-0.8 [facility] Comment on above: Performed By: #### G LU1HR #### [facility] [address] [place] [address] Dr. Emilee Springer Monocytes/100 WBC (Bld) 7.0 % Normal 1.7-12.0 [facility] Comment on above: Performed By: #### G LU1HR #### [facility] [address] [place] [address] Dr. Emilee Springer NEUT # 7.5 103/ul Critically high 1.4-6.5 [facility] Comment on above: Performed By: #### G LU1HR #### [facility] [address] [place] [address] Dr. Emilee Springer Neutrophils/100 WBC (Bld) 71.4 % Normal 43.0-75.0 [facility] Comment on above: Performed By: #### G LU1HR #### [facility] [address] [address] [address] Emilee Springer Platelet mean volume (Bld) [Entitic vol] 9.1 fL Critically low 9.5-13.5 [facility] Comment on above: Performed By: #### G LU1HR #### [facility] [address] [address] [address] Emilee Springer PLT 311 103/ul Normal 150-450 [facility] Comment on above: Performed By: #### G LU1HR #### [facility] [address] [address] [address] Emilee Springer RBC 3.69 106/ul Critically low 4.20-5.40 [facility] Comment on above: Performed By: #### G LU1HR #### [facility] [address] [address] [address] Emilee Springer WBC 10.5 103/ul Normal 4.0-11.0 [facility] Comment on above: Performed By: #### G LU1HR #### [facility] [address] [place] [address] Dr. Emilee Springer CULTURE URINEon 07-04-2022 CULTURE URINE Culture Observations: LIGHT GROWTH OF MIXED GENITAL BREN. NO POTENTIAL PATHOGENS SEEN. Normal [facility] Comment on above: Performed By: #### G LU1HR #### [facility] [address] [address] [address] Emilee Springer GLYCOHEMOGLOBIN A1Con 2021 ADA RECOMMENDATION SEE BELOW Normal [facility] Comment on above: Result Comment: ADA RECOMMENDED LIMIT 4.0 - 6.0 ADA THERAPEUTIC TARGET < 7.0 ACTION SUGGESTED > 7.0 Performed By: #### A 1C #### [facility] [address] [address] [address] Emilee Springer Glucose [Mass/Vol] 108 mg/dL Normal [facility] Comment on above: Performed By: #### A 1C #### [facility] [address] [place] [address] Dr. Emilee Springer HbA1c (Bld) [Mass fraction] 5.4 % Normal 4.5-6.2 [facility] Comment on above: Performed By: #### A 1C #### [facility] [address] [address] [address] Emilee Springer ALLEN BOX TEST PT SEND OUTo n 07-04-2022 SENT TO REF LAB 07/04/2022 Normal [facility] Comment on above: Performed By: #### N BOX #### [facility] [address] [address] [address] Emilee Springer TYPE AND SCREENon 07-04-2022 TYPE AND SCREEN Negative Normal [facility] Comment on above: Performed By: #### G LU1HR #### [facility] [address] [address] [address] Emilee Springer US PREG TVon 06-23-2022 [...] by: YELENA CARLOS Date: 2022-06-23 17:00 Normal [facility] HCG, Quantitative, on 06-02-2022 hCG Quant [id number] High NINF [facility] Comment on above: Non-preg premeno <=5 Postmeno <=8 Male <=3 If HCG results do not concur with clinical observations, additional testing to confirm results is recommended. Interpretation and review of laboratory results Abnormal [facility] PAP ACOG PANEL 2: 21 to 29on 04-24-2022 . . Normal [facility] Comment on above: Performed By: #### 4 [id number] #### [facility] [address] [address] [address] Emilee Springer Age Gdln ACOG Testing 21-29 Normal [facility] Comment on above: Performed By: #### 4 [id number] #### [facility] [address] [place] [address] Dr. Emilee Springer DIAGNOSIS: Comment Normal [facility] Comment on above: Result Comment: NEGA TIVE FOR INTRAEPITHELIAL LESION OR MALIGNANCY. CELLULAR CHANGES ASSOCIATED WITH INFLAMMATION ARE PRESENT. Performed By: #### 4 [id number] #### [facility] [address] [place] [address] Dr. Emilee Springer Methodology: Comment Normal [facility] Comment on above: Result Comment: This liquid based ThinPrep(R) pap test was screened with the use of an image guided system. Performed By: #### 4 [id number] #### [facility] [address] [place] [address] Dr. Emilee Springer Note: Comment Normal [facility] Comment on above: Result Comment: The Pap smear is a screening test designed to aid in the detection of premalignant and malignant conditions of the uterine cervix. It is not a diagnostic procedure and should not be used as the sole means of detecting cervical cancer. Both false-positive and false-negative reports do occur. . Performed By: #### 4 [id number] #### [facility] [address] [place] [address] Dr. Emilee Springer Performed by: Comment Normal [facility] Comment on above: Result Comment: Maynor Adams, Clinical Laboratory Science Professor Performed By: #### [id number] #### [facility] [address] [place] [address] Dr. Emilee Springer Reflex Criteria: Comment Normal [facility] Comment on above: Result Comment: The HPV DNA reflex criteria were not met with this specimen result therefore, no HPV testing was performed. . Performed By: #### 4 [id number] #### [facility] [address] [place] [address] Dr. Emilee Springer Specimen adequacy: Comment Normal [facility] Comment on above: Result Comment: Sati sfactory for evaluation. Endocervical and/or squamous metaplastic cells (endocervical component) are present. Performed By: #### [id number] #### [facility] Laboratory [address] [place] [address] Dr. Emilee Springer HCG, Quantitative, on 08-10-2021 hCG Quant 45 High <5 IU/L [facility] Comment on above: Non-preg premeno <=5 Postmeno <=8 Male <=3 If HCG results do not concur with clinical observations, additional testing to confirm results is recommended. Elevated results not associated with may be found in patients with other diseases such as tumors of the germ cells (testis, ovaries, etc.), bladder, pancreas, stomach, lungs, and liver. Interpretation and review of laboratory results Abnormal Curriculet US RENAL COMPLETEOrdered By: Lorena Ricks on 11-25-2020 Unremarkable ultrasound of the kidneys and urinary bladder. [facility] Phone: EXAMINATION: RETROPERITONEAL ULTRASOUND OF THE KIDNEYS AND URINARY BLADDER 11/25/2020 COMPARISON: None HISTORY: ORDERING SYSTEM PROVIDED HISTORY: Frequent UTI TECHNOLOGIST PROVIDED HISTORY: This procedure can be scheduled via SEC Watch. Access your SEC Watch account by visiting [employer]. FINDINGS: Kidneys: The right kidney measures 11.1 cm in length and the left kidney measures 11.6 cm in length. Kidneys demonstrate normal cortical echogenicity. No evidence of hydronephrosis or intrarenal stones. Bladder: Unremarkable appearance of the bladder. No significant post void residual. [facility] Phone: [place], pn Incoming Radiant Results From [employer] - 11/25/2020 3:59 PM EDT EXAMINATION: RETROPERITONEAL ULTRASOUND OF THE KIDNEYS AND URINARY BLADDER 11/25/2020 COMPARISON: None HISTORY: ORDERING SYSTEM PROVIDED HISTORY: Frequent UTI TECHNOLOGIST PROVIDED HISTORY: This procedure can be scheduled via SEC Watch. Access your SEC Watch account by visiting [employer]. FINDINGS: Kidneys: The right kidney measures 11.1 cm in length and the left kidney measures 11.6 cm in length. Kidneys demonstrate normal cortical echogenicity. No evidence of hydronephrosis or intrarenal stones. Bladder: Unremarkable appearance of the bladder. No significant post void residual. IMPRESSION: Unremarkable ultrasound of the kidneys and urinary bladder. [facility] Phone: Formson 10-14-2020 Forms [id number] 1.00CD:127 Normal [facility] Ambulatory Clinical Summaryo n 10-13-2020 Ambulatory Clinical Summary {[id number] Normal [facility] General Surgery Office/Clini c Noteon 10-13-2020 General Surgery Office/Clinic Note Chief Complaint post operative follow up HPI Staff 8 day post operative follow up post lap appendectomy completed while in-patient at [facility] Doing well. Minimal discomfort. Taking Ibuprofen 400mg [...] available Patient Education Exercise to Lose Weight, Svoq-jh-[id number] Problem List/Past Medical History Ongoing Acute appendicitis [...] Family History Family history is negative Normal [facility] Comment on above: Result Comment: [...] Document Reviewed: 08/12/2011 ExitCare? Patient Information ?[address] [facility] [facility] Provider Letter FTMCon 10-13 Provider Letter [facility] October 13, 2020 VINNY VERMA [address] [facility] [address] [place] [address] VINNY VERMA 2000 To Whom It May Concern, Please excuse above patient from work 10/14/20. Sincerely, Dr. Sushant Lott MD General Surgery Normal [facility] Pathology Noteon 10-08-2020 Pathology Note [id number] #1.00CD:127 [facility] Facesheeton 10-07-2020 Facesheet [id number]#1.00CD:127 Normal [facility] Operative Reporton 03-17-202 1 Operative Report [id number]# 1.00CD:127 Normal [facility] HIV Screenon 05-05-2020 HIV Ag/Ab NONREACTIVE NONREACTIVE [place], [place] Comment on above: No laboratory eviden ce of HIV infection. If acute HIV infection is suspected, consider testing for HIV-1 RNA. Basic Metabolic Panelon 04-23 Anion gap [Moles/Vol] 11 mmol/L 9 - 17 mmol/L [place] Bun/Cre Ratio 19 [place], [place] Calcium [Mass/Vol] 9.3 mg/dL 8.6 - 10. 4 mg/dL [place] Chloride [Moles/Vol] 103 mmol/L 98 - 107 mmol/L [place] CO2 [Moles/Vol] 23 mmol/L 20 - 31 mmol/L [place] Creatinine [Mass/Vol] 0.57 mg/dL 0.5 - 0.9 mg/dL [place] GFR >60 >60 mL/min [place], [place] GFR Non- >60 >60 mL/min [place] Glucose [Mass/Vol] 88 mg/dL 70 - 99 mg/dL [place], [place] Potassium [Moles/Vol] 4.6 mmol/L 3.7 - 5.3 mmol/L [place] Sodium [Moles/Vol] 137 mmol/L 135 - 144 mmol/L [place] Urea nitrogen [Mass/Vol] 11 mg/dL 6 - 20 mg/dL [place] CBCon 05-04-2020 Erythrocyte distribution width (RBC) [Ratio] 11.7 % Low 11.8 - 14.4 % [place] Hematocrit (Bld) [Volume fraction] 36.4 % 36.3 - 47.1 % [place] Hemoglobin (Bld) [Mass/Vol] 12.2 g/dL 11.9 - 15.1 g/dL [place] Interpretation and review of laboratory results Abnormal [place] MCH (RBC) [Entitic mass] 31.4 pg 25.2 - 33.5 pg [place] MCHC (RBC) [Mass/Vol] 33.5 g/dL 28.4 - 34.8 g/dL [place] MCV (RBC) [Entitic vol] 93.8 fL 82.6 - 102.9 fL [place] Platelet mean volume (Bld) [Entitic vol] 9.2 fL 8.1 - 13.5 fL [place] Platelets (Bld) [#/Vol] 307 10*3/uL [place] RBC (Bld) [#/Vol] 3.88 10*6/uL Low 3.95 - 5.1 1 m/uL [place] WBC (Bld) [#/Vol] 7.2 10*3/uL [place] WBC (Bld) [#/Vol] 0.0 10*3/uL 0.0 per 100 WBC M [place], [place] Metabolic Panelon 05-04-2020 GFR/1.73 sq M predicted among non-blacks MDRD (S/P/Bld) [Vol rate/Area] [place] Comment on above: Stage 1: Some [...] body mass. Additional eGFR calculator available at: http://www.Scaled Inference.Kiddify/multiple_crcl_2012.htm TSHon 05-04-2020 TSH Qn 2.22 m[IU]/L [place] Vital Signs Date Time Vital Sign Value Performing Clinician Facility 04-30-2025 15:110 Body mass index (BMI) [Ratio] 36.7 kg/m2 Ceasar Li NP Work Phone: [facility] 04-30-2025 15:11-0400 Body weight 103.15 kg Ceasar Limonly WALL WASHER Work Phone: [facility] 04-30-2025 15:11-0400 Diastolic blood pressure 70 mm[Hg] Ceasar Millererly WALL WASHER Work Phone: [facility] 04-30-2025 15:11-0400 Systolic blood pressure 110 mm[Hg] Ceasar Limonly WALL WASHER Work Phone: [facility] 04-14-2025 15:50-0400 Body mass index (BMI) [Ratio] 36.64 kg/m2 Virgil Oralia PA Work Phone: [facility] 04-14-2025 15:50-0400 Body weight 102.97 kg Virgil Lenox PA Work Phone: [facility] 04-14-2025 15:50-0400 Diastolic blood pressure 60 mm[Hg] Virgil Lenox PA Work Phone: [facility] 04-14-2025 15:50-0400 Systolic blood pressure 110 mm[Hg] Virgil Oralia PA Work Phone: [facility] 04-03-2025 15:44-0400 Body mass index (BMI) [Ratio] 36.61 kg/m2 Virgil Lenox PA Work Phone: [facility] 04-03-2025 15:44-0400 Body weight 102.88 kg Virgil Lenox PA Work Phone: [facility] 04-03-2025 15:44-0400 Diastolic blood pressure 70 mm[Hg] Virgil Oralia PA Work Phone: [facility] 04-03-2025 15:44-0400 Systolic blood pressure 120 mm[Hg] Virgil Oralia PA Work Phone: [facility] 03-12-2025 16:08-0400 Body mass index (BMI) [Ratio] 36.12 kg/m2 Mukul Law DO Work Phone: [facility] 03-12-2025 16:08-0400 Body weight 101.52 kg Mukul Law DO Work Phone: [facility] 03-12-2025 16:08-0400 Diastolic blood pressure 70 mm[Hg] Mukul Law DO Work Phone: [facility] 03-12-2025 16:08-0400 Systolic blood pressure 100 mm[Hg] Mukul Law DO Work Phone: [facility] 02-26-2025 15:58-0400 Body mass index (BMI) [Ratio] 35.96 kg/m2 Mukul Law DO Work Phone: [facility] 02-26-2025 15:58-0400 Body weight 101.06 kg Mukul Law DO Work Phone: [facility] 02-26-2025 15:58-0400 Diastolic blood pressure 70 mm[Hg] Mukul Law DO Work Phone: [facility] 02-26-2025 15:58-0400 Systolic blood pressure 110 mm[Hg] Mukul Law DO Work Phone: [facility] 02-11-2025 14:06-0400 Body mass index (BMI) [Ratio] 34.99 kg/m2 Mukul Law DO Work Phone: [facility] 02-11-2025 14:06-0400 Body weight 98.34 kg Mukul Law DO Work Phone: [facility] 02-11-2025 14:06-0400 Diastolic blood pressure 76 mm[Hg] Mukul Law DO Work Phone: [facility] 02-11-2025 14:06-0400 Systolic blood pressure 116 mm[Hg] Mukul Law DO Work Phone: [facility] 01-15-2025 16:41-0400 Body mass index (BMI) [Ratio] 34.19 kg/m2 Mukul Law DO Work Phone: [facility] 01-15-2025 16:41-0400 Body weight 96.07 kg Mukul Law DO Work Phone: [facility] 01-15-2025 16:41-0400 Diastolic blood pressure 72 mm[Hg] Mukul Law DO Work Phone: [facility] 01-15-2025 16:41-0400 Systolic blood pressure 118 mm[Hg] Mukul Law DO Work Phone: [facility] 12-18-2024 16:15-0400 Body mass index (BMI) [Ratio] 34.22 kg/m2 Mukul Law DO Work Phone: [facility] 12-18-2024 16:15-0400 Body weight 96.16 kg Mukul Law DO Work Phone: [facility] 12-18-2024 16:15-0400 Diastolic blood pressure 70 mm[Hg] Mukul Law DO Work Phone: [facility] 12-18-2024 16:15-0400 Systolic blood pressure 116 mm[Hg] Mukul Law DO Work Phone: [facility] 11-14-2024 15:15-0400 Body mass index (BMI) [Ratio] 33.57 kg/m2 [facility] 11-14-2024 15:15-0400 Body weight 94.35 kg Nom Nurse [facility] 11-14-2024 15:15-0400 Diastolic blood pressure 74 mm[Hg] Nom Nurse [facility] 11-14-2024 15:15-0400 Systolic blood pressure 122 mm[Hg] Nom Nurse [facility] 07-15-2024 16:25-0500 Body mass index (BMI) [Ratio] 32.93 kg/m2 Mukul Law DO Work Phone: [facility] 07-15-2024 16:25-0500 Body weight 92.53 kg Mukul Law DO Work Phone: [facility] 08-31-2022 03:06-0500 Body weight 94.[address] MUKUL FOY . [facility] Comment on above: Performed By: #### AFPMAT #### [facility] Laboratory [address] [place] [address] Dr. Emilee Springer Encounters Encounter Date Encounter Type Care Provider Facility Start: 04-30-2025 End: 04-30-2025 ambulatory CEASAR LI Not Available Start: 04-30-2025 End: 04-30-2025 flow sheet Ceasar Li WALL WASHER Work Phone: [facility] Comment on above: Third trimester preg gunner ([facility]); 32 weeks gestation of ([facility]) Start: 04-30-2025 End: 04-30-2025 Bamboo flowsheet Ceasar Li WALL WASHER Work Phone: [facility] Start: 04-30-2025 End: 04-30-2025 Bamboo flowsheet Ceasar Li WALL WASHER Work Phone: [facility] Start: 04-30-2025 End: 04-30-2025 Clinisync Result Encounter Muukl Foy DO Work Phone: [facility] Unsolicited Start: 04-14-2025 End: 04-14-2025 ambulatory VIRGIL BARTON Not Available Start: 04-14-2025 End: 04-14-2025 flow sheet Virgil Barton PA Work Phone: [facility] Comment on above: Third trimester preg gunner ([facility]); 30 weeks gestation of ([facility]) Start: 04-14-2025 End: 04-14-2025 Bamboo flowsheet Virgil RUIZ Work Phone: [facility] Start: 04-14-2025 End: 04-14-2025 Bamboo flowsheet Virgil RUIZ Work Phone: [facility] Start: 04-05-2025 End: 04-05-2025 Clinisync Result Encounter Virgil RUIZ Work Phone: [facility] Unsolicited Start: 04-05-2025 End: 04-05-2025 Clinisync Result Encounter Virgil RUIZ Work Phone: [facility] Unsolicited Start: 04-03-2025 End: 04-03-2025 ambulatory VIRGIL BARTON Not Available Start: 04-03-2025 End: 04-03-2025 flow sheet Virgil RUIZ Work Phone: [facility] [place] Comment on above: 28 weeks gestation o f ([facility]); Third trimester ([facility]); Dizziness; Gestational diabetes mellitus (GDM), antepartum, gestational diabetes method of control unspecified ([facility]); History of miscarriage; Anemia, unspecified type; UTI symptoms Start: 04-03-2025 End: 04-03-2025 Bamboo flowsheet Virgil RUIZ Work Phone: [facility] Start: 04-03-2025 End: 04-03-2025 Bamboo flowsheet Virgil RUIZ Work Phone: [facility] Start: 03-12-2025 End: 03-12-2025 ambulatory MUKUL LAW Not Available Start: 03-12-2025 End: 03-12-2025 flow sheet Mukul Law DO Work Phone: [facility] Comment on above: 25 weeks gestation o f ([facility]); Second trimester ([facility]); Gastroesophageal reflux disease without esophagitis Start: 03-12-2025 [...] on above: 23 weeks gestation o f ([facility]); Elevated blood sugar level; Gastroesophageal reflux disease without esophagitis Start: 02-26-2025 End: 02-26-2025 Bamboo flowsheet Mukul Law DO Work Phone: [facility] Start: 02-26-2025 End: 02-26-2025 Bamboo flowsheet Mukul Law DO Work Phone: [facility] Start: 02-11-2025 End: 02-11-2025 flow sheet Mukul Law DO Work Phone: [facility] Comment on above: Second trimester pre gnancy ([facility]); 20 weeks gestation of ([facility]) Start: 02-11-2025 End: 02-11-2025 ambulatory MUKUL LAW Not Available Start: 01-15-2025 End: 01-15-2025 ambulatory MUKUL LAW Not Available Start: 01-15-2025 End: 01-15-2025 flow sheet Mukul Law DO Work Phone: [facility] Comment on above: Second trimester pre gnancy ([facility]); 17 weeks gestation of ([facility]); Vaginal discharge; STD exposure; Screening, , for anatomic survey ([facility]); Gastroesophageal reflux in ([facility]); Gestational diabetes mellitus (GDM), antepartum, gestational diabetes method of control unspecified ([facility]) Start: 01-15-2025 End: 01-15-2025 Bamboo flowsheet Mukul Law DO Work Phone: [facility] Start: 01-15-2025 End: 01-17-2025 Bamboo flowsheet Mukul Law DO Work Phone: [facility] Start: 01-15-2025 End: 01-17-2025 External Result Encounter Virgil RUIZ Work Phone: [facility] Unsolicited Start: 01-07-2025 End: 01-07-2025 ambulatory YNES M RODRIGUEZ [facility] Start: 01-07-2025 End: 01-07-2025 Subsequent hospital visit by physician Ynes Rodriguez [employer] Work Phone: [facility] Start: 12-23-2024 End: 12-23-2024 Clinisync Result Encounter Mukul Law DO Work Phone: [facility] Unsolicited Start: 12-23-2024 End: 12-23-2024 Clinisync Result Encounter Mukul Law DO Work Phone: [facility] Unsolicited Start: 12-20-2024 End: 12-22-2024 ambulatory YNES RODRIGUEZ [facility] Start: 12-20-2024 End: 12-22-2024 Subsequent hospital visit by physician [facility] Ultrasound Room [facility] Ultrasound Comment on above: Subchorionic hematom [...] Start: 07-15-2024 End: 07-15-2024 Patient encounter procedure Muukl Law DO Work Phone: [facility] Start: [...] Start: 05-20-2024 End: 05-20-2024 ambulatory [facility] Start: 05-20-2024 End: 05-20-2024 Subsequent hospital visit by physician Ynes Steele CNP Work Phone: [facility] Laboratory Comment on above: Elevated liver enzym es; Mixed hyperlipidemia Start: 03-06-2024 End: 03-08-2024 ambulatory YNES [facility] Start: 02-16-2024 End: 02-16-2024 ambulatory YNES [facility] Start: 08-06-2023 End: 08-06-2023 ambulatory Facility:[facility] Start: 07-11-2023 End: 07-11-2023 ambulatory RAJENDRA SHEFFIELD [facility] Start: 03-20-2023 End: 03-20-2023 ambulatory [facility] Start: 12-17-2022 End: 12-17-[address] [...] End: 08-01-2022 [facility] Start: 07-04-2022 End: 07-05-[address] MUKUL FOY . Facility:[facility] Start: 06-23-2022 End: 06-24-[address] YELENA CARLOS Facility:[facility] Start: 06-09-2022 End: 06-10-[address] MUKUL FOY . Facility:[facility] Start: 06-02-2022 End: 06-02-2022 Subsequent hospital visit by physician Ynes Steele CNP [facility] Phone[facility] Start: 04-18-2022 End: 04-18-[address] MUKUL FOY . Facility: Start: 09-23-2021 End: 09-27-2021 ambulatory BERTO L[facility] Start: 09-08-2021 End: 09-12-2021 ambulatory MUKUL [facility] Start: 08-25-2021 End: 08-29-2021 ambulatory [facility] Start: 08-19-2021 End: 08-23-2021 ambulatory [facility] Start: 08-10-2021 End: 08-10-2021 Subsequent hospital visit by physician Ynes Steele CNP Work Phone: [facility] Laboratory Comment on above: Amenorrhea Start: 11-25-2020 End: 11-27-2020 Subsequent hospital visit by physician [place] Ultrasound Room [facility] Radiology Comment on above: Frequent UTI [...] 04-05-2025 ALL CBC WITH AUTO DIFF Virgil RIUZ Work Phone: Start: 04-03-2025 Urnls dip stick/tabl [...] in Cervix by Cyto stain Ynes Rodriguez [employer] Work Phone: Start: 05-20-2024 Lipid panel Ynes hess [employer] COMMISS[employer]ER Work Phone: Start: 05-20-2024 Comprehensive metabo lic panel Ynes Rodriguez [employer] COMMISS[employer] Work Phone: Start: 07-15-2023 Microscopic observat ion [Identifier] in Cervix by Cyto stain [facility] Start: 08-01-2022 Antibody rubella Fran Barroso [employer] COMMISS[employer] Work Phone: Start: 06-02-2022 Gonadotropin chorion ic quantitative Mukul Foy MD Work Phone: Start: 08-10-2021 Gonadotropin chorion ic quantitative Berto Live [employer]ING [employer] - CN Work Phone: Start: 11-25-2020 Us retroperitoneal r eal time w/image complete Lorena Ricks [employer] Work Phone: Start: 05-04-2020 Antibody hiv-1&hiv-2 single result Ynes Rodriguez Work Phone: Start: 05-04-2020 Assay of thyroid sti mulating hormone tsh Ynes Rodriguez Work Phone: Start: 05-04-2020 Basic metabolic pane l calcium total Ynes Rodriguez Work Phone: Start: 05-04-2020 Blood count complete automated Ynes Rodriguez Work Phone: Start: 03-03-2020 Microscopic observat ion [Identifier] in Cervix by Cyto stain Ynes Rodriguez [employer] COMM[employer] Work Phone: Plan of Treatment Date Care Activity Detail Author Start: 07-15-2027 Screening for malign ant neoplasm of cervix Pap smear [facility] Start: 07-15-2026 Screening for malign ant neoplasm of cervix Pap smear [facility] Start: 08-07-2025 Depression Screen Depression Screen [facility] Start: 07-28-2025 End: 07-28-2025 Patient encounter procedure [facility] Start: 05-20-2025 Lipid panel Lipids [facility] Start: 05-14-2025 End: 05-14-2025 Patient encounter procedure 05/14/2025 2:50 PM EDT Routine DIANE SANTO [address] [place] [id number] Mukul Foy DO [address] [place] [address] [facility] Start: 05-14-2025 End: 05-14-2025 Patient encounter procedure 05/14/2025 11:40 AM EDT Office Visit [facility] [address] [place] [address] Dr Torres [address] [place] [address] Ynes Rodriguez, [employer] COMM[employer]ER [address] PULIDO [address] [place], [place] [id number] 6 month f/u [facility] Comment on above: 6 month f/u Start: 04-30-2025 End: 04-30-2025 Patient encounter procedure 04/30/2025 3:00 PM EDT Routine [facility] [address] [place] [phone] Ceasar Li, ASHWIN [address] [place] [phone] [facility] Start: 04-14-2025 End: 04-14-2025 Patient encounter procedure 04/14/2025 3:20 PM EDT Routine [facility] [address] [phone] Virgil Barton, PA [address] [place] [address] [facility] Start: 04-03-2025 End: 04-03-2025 Patient encounter procedure 04/03/2025 3:30 PM EDT Routine [facility] [address] [phone] Virgil Barton, PA [address] [place] [address] [facility] Start: 04-03-2025 End: 04-03-2026 CBC W Auto Differential panel - Blood CBC and differential Lab Routine Dizziness Anemia, unspecified type Expected: 04/03/2025 (Approximate), Expires: 04/03/2026 [facility] Comment on above: Expected: 04/03/2025 (Approximate), Expires: 04/03/2026 Start: 04-03-2025 End: 10-01-2025 US biophysical profile w non stress test US biophysical profile w non stress test Imaging Routine 28 weeks gestation of ([facility]) Third trimester ([facility]) Gestational diabetes mellitus (GDM), antepartum, gestational diabetes method of control unspecified ([facility]) History of miscarriage Expected: 04/03/2025 (Approximate), Expires: 10/01/2025 [facility] Comment on above: Expected: 04/03/2025 (Approximate), Expires: 10/01/2025 Start: 04-03-2025 End: 08-03-2025 US for US OB follow up transabdominal approach Imaging Routine 28 weeks gestation of ([facility]) Third trimester ([facility]) Gestational diabetes mellitus (GDM), antepartum, gestational diabetes method of control unspecified ([facility]) History of miscarriage Expected: 04/03/2025, Expires: 08/03/2025 [facility] Work Phone: Comment on above: Expected: 04/03/2025 , Expires: 08/03/2025 Start: 03-24-2025 Influenza vaccination [facility] Start: 02-21-2025 Influenza vaccination Flu vacc ine (Season Ended) [facility] Start: 02-11-2025 End: 02-11-2025 Patient encounter procedure 02/11/2025 2:10 PM EDT Routine [facility] [address] [place] [phone] Mukul Foy, DO [address] [place] [address] [facility] Start: 02-11-2025 End: 02-11-2025 Professional / ancillary services management 02/11/2025 1:00 PM EDT Ancillary Procedure [facility] [address] [place] [phone] [facility] Start: 01-15-2025 End: 01-15-2025 Patient encounter procedure 01/15/2025 3:50 PM EDT Routine [facility] [address] [place] [phone] Mukul Foy, DO [address] [place] [address] [facility] Start: 01-15-2025 End: 07-17-2025 Alpha fetoprotein, maternal Alpha fetoprotein, maternal Lab Routine Second trimester ([facility]) 17 weeks gestation of ([facility]) Expected: 01/15/2025 (Approximate), Expires: 07/17/2025 [facility] Comment on above: Expected: 01/15/2025 (Approximate), Expires: 07/17/2025 Start: 01-15-2025 End: 04-17-2025 US for US OB 14+ weeks anatomy scan Imaging Routine Screening, , for anatomic survey ([facility]) Expected: 01/15/2025, Expires: 04/17/2025 [facility] Comment on above: Expected: 01/15/2025 , Expires: 04/17/2025 Start: 12-18-2024 End: 12-18-2024 Patient encounter procedure 12/18/2024 3:40 PM EDT Routine [facility] [address] [phone] Mukul Foy, DO [address] [place] [address] [facility] Start: 12-18-2024 End: 12-18-2025 CBC panel - Blood by Automated count CBC Lab Routine Diabetes mellitus screening Expected: 12/18/2024 (Approximate), Expires: 12/18/2025 [facility] Work Phone: Comment on above: Expected: 12/18/2024 (Approximate), Expires: 12/18/2025 Start: 12-18-2024 End: 12-18-2025 Measurement of glucose 1 hour after glucose challenge for glucose tolerance test Glucose tolerance, 1 hour Lab Routine Diabetes mellitus screening Expected: 12/18/2024 (Approximate), Expires: 12/18/2025 [facility] Comment on above: Expected: 12/18/2024 (Approximate), Expires: 12/18/2025 Start: 12-18-2024 End: 03-20-2025 US Pelvis transvaginal US OB transvaginal Imaging Routine Subchorionic hematoma in first trimester, single or unspecified fetus Expected: 12/18/2024, Expires: 03/20/2025 [facility] Work Phone: Comment on above: Expected: 12/18/2024 , Expires: 03/20/2025 Start: 11-14-2024 End: 11-14-2025 ABO/Rh ABO/Rh Lab Routine Missed menses , unspecified gestational age Expected: 11/14/2024 (Approximate), Expires: 11/14/2025 [facility] Comment on above: Expected: 11/14/2024 (Approximate), Expires: 11/14/2025 Start: 11-14-2024 End: 11-14-2025 Blood type and Indirect antibody screen panel - Blood Type and screen Lab Routine Missed menses , unspecified gestational age Expected: 11/14/2024 (Approximate), Expires: 11/14/2025 [facility] Comment on above: Expected: 11/14/2024 (Approximate), Expires: 11/14/2025 Start: 11-14-2024 End: 11-14-2025 Drugs of abuse panel - Urine by Screen method Rapid drug screen, urine Lab Routine , unspecified gestational age Encounter for supervision of normal first in first trimester Expected: 11/14/2024 (Approximate), Expires: 11/14/2025 [facility] Comment on above: Expected: 11/14/2024 (Approximate), Expires: 11/14/2025 Start: 11-06-2024 End: 02-05-2025 US Pelvis transvaginal US OB transvaginal Imaging Routine Missed menses Expected: 11/06/2024, Expires: 02/05/2025 [facility] Work Phone: Comment on above: Expected: 11/06/2024 , Expires: 02/05/2025 Start: 10-16-2024 End: 10-16-2024 Patient encounter procedure 10/16/2024 1:40 PM EDT Office Visit [facility] [address] [place] [address] [address] [place] [address] Ynes Rodriguez, TURNING LATHE TENDER - HIGHWAY COMMISSIONER [address] [facility] [address] [place] [address] Wellness [facility] Comment on above: Wellness Start: 08-03-2024 Depression Screen Depression Screen [facility] Start: 06-04-2024 End: 06-04-2024 Patient encounter procedure 06/04/2024 11:45 AM EST Office Visit [facility] [address] [place] [address] [address] [place] [address] Jose Cruz Raza MD [address] [place] [address] wt management [facility] Comment on above: wt management Start: 05-22-2024 End: 05-22-2024 Patient encounter procedure 05/22/2024 11:00 AM EDT Office Visit [facility] [address] [place] [address] [address] [place] [address] Ynes Rodriguez, TURNING LATHE TENDER - HIGHWAY COMMISSIONER [address] [facility] [address] [place], [place] [id number] LFT + HLD f/u(RS 10/17/23 appt) [facility] Comment on above: LFT + HLD f/u(RS 09/22 01/14 appt) Start: 03-24-2024 COVID-19 Vaccine ( season) COVID-19 Vaccine ( season) [facility] Start: 03-24-2024 COVID-19 Vaccine ( season) COVID-19 Vaccine ( season) [facility] Start: 03-24-2024 Influenza vaccination Influenza Vacc ine (#1) [facility] Start: 02-22-2024 Influenza vaccination Flu vaccine (# 1) [facility] Start: 03-03-2023 Screening for malign ant neoplasm of cervix [facility] Start: 11-09-2022 Depression Screen Depression Screen [facility] Start: 07-11-2022 End: 07-11-2022 Patient encounter procedure 07/11/2022 Office Visit Primary Care Ynes Rodriguez, TURNING LATHE TENDER - HIGHWAY COMMISSIONER [address] [place] [address] [facility] Start: 05-19-2022 End: 05-19-2022 Patient encounter procedure 05/19/2022 Office Visit Obstetrics and Gynecology Berto Live, TURNING LATHE TENDER - CNM [address] [place] [address] [facility]ST[facility] GYNECOLOGY [facility] Start: 03-18-2022 End: 03-18-2022 Patient encounter procedure 03/18/2022 Office Visit Family Medicine Ynes Rodriguez, TURNING LATHE TENDER - HIGHWAY COMMISSIONER [address] [facility] [address] [place] [address] [facility] FAMILY MEDIC[facility] Start: 03-12-2022 Hepatitis C screening Hepatitis C sc [facility] Comment on above: Postponed from 09/09 (Patient Refused) Start: 02-21-2022 Influenza vaccination Flu vaccine (# 1) [facility] Start: 11-19-2021 Screening for Chlamy carlton trachomatis [facility] Start: 09-24-2021 Influenza vaccination Flu vacc ine (Season Ended) [facility] Work Phone: Comment on above: Postponed from 03/24 (Patient Refused) Start: 08-17-2021 Depression Monitoring Depression Mon rhiannon [facility] Start: 06-30-2021 COVID-19 Vaccine (3 - Booster for Pfizer series) COVID-19 Vaccine (3 - Booster for Pfizer series) [facility] Start: 06-19-2021 DTaP/Tdap/Td vaccine (7 - Td or Tdap) DTaP/Tdap/Td vaccine (7 - Td or Tdap) [facility] Start: 06-19-2021 DTaP/Tdap/Td vaccine (7 - Td) DTaP/Tdap/Td vaccine (7 - Td) [facility] [place] Start: 03-24-2021 Influenza vaccination Flu vaccine (# 1) [facility] Start: 03-03-2021 Screening for Chlamy carlton trachomatis Chlamydia screen [place], [place] Start: 02-23-2021 COVID-19 Vaccine (3 - Booster for Pfizer series) COVID-19 Vaccine (3 - Booster for Pfizer series) [facility] Start: 02-09-2021 End: 02-09-2021 Patient encounter procedure 02/09/2021 Office Visit Family Medicine Ynes Rodriguez, TURNING LATHE TENDER - HIGHWAY COMMISSIONER [address] [facility] [address] [place] [address] [phone] [facility] Start: 11-30-2020 End: 11-30-2020 Patient encounter procedure 11/30/2020 Office Visit Urology Chris Moe MD [address] [facility], [address] [place] [address] [phone] [facility] Start: 05-28-2020 End: 05-28-2020 Telemedicine 05/28/2020 Telemedicine Family Medicine Ynes Rodriguez, TURNING LATHE TENDER - HIGHWAY COMMISSIONER [address] [facility] [address] [place] [address] [phone] [facility] Start: 03-24-2020 Influenza vaccination Flu vaccine (# 1) [place] Start: 02-22-2020 Screening for Chlamy carlton trachomatis Chlamydia screen [place], [place] Start: 2019 Screening for malign ant neoplasm of cervix Cervical cancer screen [place], [place] Start: 2016 Hepatitis C screening Hepatitis C sc katiesigrid [facility] Start: 2014 COVID-19 Vaccine (1) COVID-19 Vaccin e (1) [facility] Phone: Start: 2013 HIV screening HIV screen [place], [place] Start: 1998 Hepatitis C screening Hepatitis C sc katien [facility] [employer] [facility] Phone: Bacteria identified in Urine by Culture Urine culture Microbiology Routine Missed menses Ordered: 11/14/2024 [facility] Comment on above: Ordered: 11/14/2024 Bacteria identified in Urine by Culture Urine culture Microbiology Routine UTI symptoms Ordered: 04/03/2025 [facility] Comment on above: Ordered: 04/03/2025 End: 03-03-2020 C.trachomatis N.gonorrhoeae DNA, Thin Prep C.trachomatis N.gonorrhoeae DNA, Thin Prep Microbiology Routine Encounter for annual routine gynecological examination 1 Occurrences starting 03/03/2020 until 03/03/[address] [facility] [place] Comment on above: 1 Occurrences starti ng 03/03/2020 until 03/03/2020 C.trachomatis N.gonorrhoeae DNA, Thin Prep C.trachomatis N.gonorrhoeae DNA, Thin Prep Microbiology Routine Encounter for annual routine gynecological examination 03/03/2020 5:08 PM EDT [place], [place] CBC W Auto Different ial panel - Blood CBC and differential Lab Routine Missed menses , unspecified gestational age Ordered: 11/14/2024 [facility] Comment on above: Ordered: 11/14/2024 CHLAMYDIA TRACHOMATI S (GENITO/STI) CHLAMYDIA TRACHOMATIS (GENITO/STI) Lab Routine STD exposure Ordered: 01/15/2025 [facility] Comment on above: Ordered: 01/15/2025 Cytology Cervical or vaginal smear or scraping study Pap Smear Pathology and Cytology Routine Well woman exam with routine gynecological exam Ordered: 07/15/2024 [facility] Work Phone: Comment on above: Ordered: 07/15/2024 End: 03-03-2020 Cytopathology procedure, preparation of smear, genital source PAP SMEAR Lab Routine Screening for cervical cancer 1 Occurrences starting 03/03/2020 until 03/03/[address] [facility] [place] Comment on above: 1 Occurrences starti ng 03/03/2020 until 03/03/2020 Hemoglobin A1c/Hemoglobin.total in Blood Hemoglobin A1c Lab Routine Missed menses , unspecified gestational age Ordered: 11/14/2024 [facility] Comment on above: Ordered: 11/14/2024 Hepatitis B virus surface Ag [Presence] in Serum or Plasma by Immunoassay Hepatitis B surface antigen Lab Routine Missed menses , unspecified gestational age Ordered: 11/14/2024 [facility] Comment on above: Ordered: 11/14/2024 Hepatitis C virus Ab [Presence] in Serum or Plasma by Immunoassay Hepatitis C antibody Lab Routine Missed menses , unspecified gestational age Ordered: 11/14/2024 [facility] Comment on above: Ordered: 11/14/2024 HIV-1/HIV-2 antigen/antibody combination immunoassay HIV-1 and HIV-2 antibodies Lab Routine Missed menses , unspecified gestational age Ordered: 11/14/2024 [facility] Comment on above: Ordered: 11/14/2024 Neisseria gonorrhoea e DNA [Presence] in Unspecified specimen by ANISA with probe detection Neisseria gonorrhea DNA probe, direct Lab Routine STD exposure Ordered: 01/15/2025 [facility] Comment on above: Ordered: 01/15/2025 Reagin Ab [Presence] in Serum by RPR RPR Lab Routine Missed menses , unspecified gestational age Ordered: 11/14/2024 [facility] Comment on above: Ordered: 11/14/2024 Rubella antibody, IgG Rubella an tibody, IgG Lab Routine Missed menses , unspecified gestational age Ordered: 11/14/2024 [facility] Comment on above: Ordered: 11/14/2024 SURESWAB(R) ADVANCED VAGINITIS PLUS, TMA SURESWAB(R) ADVANCED VAGINITIS PLUS, TMA Pathology and Cytology Routine Vaginal discharge Ordered: 01/15/2025 [facility] Work Phone: Comment on above: Ordered: 01/15/2025 US Pelvis transvaginal US OB tra nsvaginal Imaging Routine Missed menses 11/14/2024 2:38 PM EDT [facility] End: 12-20-2024 Us uterus 14 wk transabdl 07/24 gestat [facility] [employer] Work Phone: Comment on above: 1 Occurrences starti ng 12/20/2024 until 12/20/2024 Immunizations Immunization Date Immunization Notes Care Provider Fa hilton 12-29-2020 COVID-19, Pfizer Pur ple top, DILUTE for use, 12+ yrs, 30mcg/0.3mL dose Ynes Rodriguez TURNING LATHE TENDER - HIGHWAY COMMISSIONER Work Phone: [employer] Phone: 12-07-2020 COVID-19, Pfizer Pur ple top, DILUTE for use, 12+ yrs, 30mcg/0.3mL dose Ynes Rodriguez TURNING LATHE TENDER - [facility] Work Phone: [facility] 09-20-2017 human papilloma viru s vaccine, quadrivalent [facility], [place] 05-01-2017 human papilloma viru s vaccine, quadrivalent [facility], [place] 02-24-2017 human papilloma viru s vaccine, quadrivalent [facility], [place] 03-11-2016 meningococcal polysaccharide (groups A, C, Y and W-135) diphtheria toxoid conjugate vaccine (MCV4P) [facility] [place] 2014 meningococcal ACWY vaccine, unspecified formulation [facility] 08-19-2011 Hepatitis A Ped/Adol (Vaqta) [facility] 08-19-2011 hepatitis A vaccine, pediatric/adolescent dosage, 2 dose schedule Ynes Rodriguez TURNING LATHE TENDER - [facility] Work Phone: [facility] Work Phone: 06-19-2011 tetanus toxoid, redu saundra diphtheria toxoid, and acellular pertussis vaccine, adsorbed [facility] 02-09-2011 Hepatitis A Ped/Adol (Vaqta) [facility] 02-09-2011 hepatitis A vaccine, pediatric/adolescent dosage, 2 dose schedule Ynes Rodriguez TURNING LATHE TENDER [facility] Work Phone: [facility] Work Phone: 02-09-2011 varicella virus vaccine [facility] [place] 01-12-2011 meningococcal polysaccharide (groups A, C, Y and W-135) diphtheria toxoid conjugate vaccine (MCV4P) [facility] 11-20-2003 diphtheria, tetanus toxoids and acellular pertussis vaccine [facility] 11-20-2003 measles, mumps and rubella virus vaccine [facility] 11-20-2003 poliovirus vaccine, inactivated [facility] 03-13-2000 diphtheria, tetanus toxoids and acellular pertussis vaccine [facility] 03-13-2000 haemophilus influenz ae type b vaccine, PRP-T conjugate [facility] 03-13-2000 poliovirus vaccine, inactivated [facility] 12-22-1999 measles, mumps and rubella virus vaccine [facility] 12-22-1999 varicella virus vaccine [facility] 06-09-1999 hepatitis B vaccine, pediatric or pediatric/adolescent dosage [facility] 03-12-1999 diphtheria, tetanus toxoids and acellular pertussis vaccine [facility] 03-12-1999 haemophilus influenz ae type b vaccine, PRP-T conjugate [facility] 01-18-1999 diphtheria, tetanus toxoids and acellular pertussis vaccine [facility] 01-18-1999 haemophilus influenz ae type b vaccine, PRP-T conjugate [facility] 01-18-1999 poliovirus vaccine, inactivated [facility] 1998 haemophilus influenz ae type b vaccine, PRP-T conjugate [facility] 1998 poliovirus vaccine, inactivated [facility] 1998 diphtheria, tetanus toxoids and acellular pertussis vaccine [facility] 1998 hepatitis B vaccine, pediatric or pediatric/adolescent dosage [facility] 1998 hepatitis B vaccine, pediatric or pediatric/adolescent dosage [facility] Payers Date Payer Category Payer Unknown [facility] [id number] 2022-Present [address] [facility] [place] [address] Indemnity [id number] 2022 Private Health Insurance [employer] [id number]. [id number] 1998 Unknown [id number] 2.16.840.1.951072.3.579.2. 900 1998 Unknown [id number] 2.16.840.1.627745.3.579.2. 900 1998 Unknown [id number] 2.16.840.1.544678.3.579.2. 900 1998 Unknown [id number] 2.16.840.1.449714.3.579.2. 900 1998 Unknown [id number] 2.16.840.1.551801.3.579.2. 593 1998 Unknown [id number] 2.16.840.1.106451.3.579.2. 593 1998 Unknown [id number] 2.16.840.1.515381.3.579.2. 593 1998 Unknown [id number] 2.16.840.1.429937.3.579.2. 593 1998 Unknown [id number] 2.16.840.1.060375.3.579.2. 593 1998 Unknown [id number] 2.16.840.1.021062.3.579.2. 593 1998 Unknown [id number] 2.16.840.1.703523.3.579.2. 593 1998 Unknown [id number] 2.16.840.1.284459.3.579.2. 593 1998 Unknown [id number] 2.16.840.1.176550.3.579.2. 593 1998 Unknown [id number] 2.16.840.1.072016.3.579.2. 593 1998 Unknown [id number] 2.16.840.1.029592.3.579.2. 593 1998 Unknown [id number] 2.16.840.1.649490.3.579.2. 593 1998 Unknown [id number] 2.16.840.1.313563.3.579.2. 593 1998 Unknown [id number] 2.16.840.1.207092.3.579.2. 593 1998 Unknown [id number] 2.16.840.1.216395.3.579.2. 173 1998 Unknown [id number] 2.16.840.1.078507.3.579.2. 173 1998 Unknown [id number] 2.16.840.1.722836.3.579.2. 173 1998 Unknown [id number] 2.16.840.1.912395.3.579.2. 173 1998 Unknown [id number] 2.16.840.1.374329.3.579.2. 173 1998 Unknown [id number] 2.16.840.1.361369.3.579.2. 1259 1998 Unknown [id number] 2.16.840.1.804215.3.579.2. 1259 1998 Unknown [id number] 2.16.840.1.024327.3.579.2. 1259 1998 Unknown [id number] 2.16.840.1.769980.3.579.2. 9 1998 Unknown [id number] 2.16.840.1.252002.3.579.2. 9 1998 Unknown [id number] 2.16.840.1.211593.3.579.2. 9 1998 Unknown [id number] 2.16.840.1.900480.3.579.2. 9 1998 Unknown [id number] 2.16.840.1.295865.3.579.2. 9 1998 Unknown [id number] 2.16.840.1.560906.3.579.2. 1258 1998 Unknown [id number] 2.16.840.1.220289.3.579.2. 9 1998 Unknown [id number] 2.16.840.1.028881.3.579.2. 9 1998 Unknown [id number] 2.16.840.1.950873.3.579.2. 1259 1959 Self-pay 1959 Unknown [id number] 1.2.840.971402.1.13.239.2. 7.3.106457.315 1959 Unknown [id number] 1959 Unknown [id number] Unknown [id number] 2.16.840.1.773400.3.579.2. 593 Social History Date Type Detail Facility Start: 03-03-2020 End: 12-31-2022 Tobacco smoking status NHIS Never smoker [place] Start: 03-03-2020 End: 12-31-2022 Tobacco use and exposure Never used [place] Start: 03-03-2020 End: 05-12-2021 Alcohol intake Current drinker of alcohol (finding) [place] Start: 06-19-2017 Alcohol Comment social [facility] [place] Start: 1998 Sex Assigned At Not on file M [place], [place] Start: 05-01-2020 End: 03-08-2022 History SDOH Financial 5 [place] Start: 05-01-2020 End: 03-08-2022 History SDOH Food Worry 1 [place], [place] Start: 05-01-2020 History SDOH Transpo rt Med 2 [place] Exposure to SARS-CoV -2 (event) Not sure [facility] Start: 05-01-2024 End: 11-12-2024 Alcoholic beverage intake [facility] Start: 05-01-2024 End: 11-14-2024 History of Social function [facility] Start: 05-01-2024 End: 11-14-2024 Tobacco use panel [facility] How hard is it for y ou to pay for the very basics like food, housing, medical care, and heating Not hard at all [facility] (I/We) worried wherosemary er (my/our) food would run out before (I/we) got money to buy more. Never true [facility] Start: 1998 [facility] Start: 05-20-2024 Gender identity Identifies as female gender (finding) [facility] Start: 07-05-2023 End: 04-30-2025 Alcoholic beverage intake Lifetime non-drinker (finding) [facility] Start: 09-30-2024 CRISPINS [facility] Has the electric, ga s, oil, or water company threatened to shut off services in your home in past 12Mo No [employer] Start: 09-02-2012 Sex Female (finding) [facility] [employer] Medical Equipment Procedure Code Equipment Code Equipment Origin al Text Equipment Identifier Dates Use as instructed [id number] Start: 01-15-2025 End: 01-15-2026 Inject 1 each un tino the skin Daily [id number] Start: 04-07-2025 End: 07-16-2025 Goals Date Patient [...] Frequent UTI 11/30/2020 23 weeks gestation of ([facility]) 02/26/2025 Elevated blood sugar level 02/26/2025 Resolved Ambulatory Problems Diagnosis Date Noted Missed period 01/13/2023 Past Medical History: Diagnosis Date GDM (gestational diabetes mellitus) ([facility]) HISTORY PAST MEDICAL HISTORY SOCIAL HISTORY Past Medical History: Diagnosis Date GDM (gestational diabetes mellitus) ([facility]) Social History Tobacco Use Smoking status: [...] nursing note reviewed. Exam conducted with a promotional demonstrator present. Vitals: Estimated body mass index is 36.7 kg/m as calculated from the following: Height as of 01/30/23: 5' 6 . Weight as of this encounter: 227 lb 6.4 oz. BP: 110/70 Patient's last menstrual period was 09/16/2024. ASSESSMENT & PLAN ICD-10-CM 1. Third trimester ([facility]) Z34.93 2. 32 weeks gestation of ([facility]) Z3A.32 POCT urinalysis dipstick manually resulted [...] Ceasar Li NP documented in this encounter [facility] 04-14-2025 History of Present illness Narrative Reason [...] Frequent UTI 11/30/2020 23 weeks gestation of ([facility]) 02/26/2025 Elevated blood sugar level 02/26/2025 Resolved Ambulatory Problems Diagnosis Date Noted Missed period 01/13/2023 Past Medical History: Diagnosis Date GDM (gestational diabetes mellitus) ([facility]) HISTORY PAST MEDICAL HISTORY SOCIAL HISTORY Past Medical History: Diagnosis Date GDM (gestational diabetes mellitus) ([facility]) Social History Tobacco Use Smoking status: [...] ASSESSMENT & PLAN ICD-10-CM 1. Third trimester ([facility]) Z34.93 POCT urinalysis dipstick manually resulted 2. 30 weeks gestation of ([facility]) Z3A.30 Return OB: Patient presents today for [...] of: JOSEPH Bowie documented in this encounter [facility] 04-03-2025 History of Present illness Narrative Reason [...] Frequent UTI 11/30/2020 23 weeks gestation of ([facility]) 02/26/2025 Elevated blood sugar level 02/26/2025 Resolved Ambulatory Problems Diagnosis Date Noted Missed period 01/13/2023 Past Medical History: Diagnosis Date GDM (gestational diabetes mellitus) ([facility]) HISTORY PAST MEDICAL HISTORY SOCIAL HISTORY Past Medical History: Diagnosis Date GDM (gestational diabetes mellitus) ([facility]) Social History Tobacco Use Smoking status: [...] PLAN ICD-10-CM 1. 28 weeks gestation of ([facility]) Z3A.28 POCT urinalysis dipstick manually resulted US OB follow up transabdominal approach US biophysical profile w non stress test 2. Third trimester ([facility]) Z34.93 POCT urinalysis dipstick manually resulted US OB follow up transabdominal approach US biophysical profile w non stress test 3. Dizziness R42 CBC and differential CBC and differential 4. Gestational diabetes mellitus (GDM), antepartum, gestational diabetes method of control unspecified ([facility]) O24.419 US OB follow up transabdominal approach [...] of: JOSEPH Bowie documented in this encounter [facility] 03-12-2025 History of Present illness Narrative Reason [...] Frequent UTI 11/30/2020 23 weeks gestation of ([facility]) 02/26/2025 Elevated blood sugar level 02/26/2025 Resolved Ambulatory Problems Diagnosis Date Noted Missed period 01/13/2023 Past Medical History: Diagnosis Date GDM (gestational diabetes mellitus) ([facility]) No family history on file. Social History [...] nursing note reviewed. Exam conducted with a promotional demonstrator present. Vitals: Estimated body mass index is 36.12 kg/m as calculated from the following: Height as of 01/30/23: 5' 6 . Weight as of this encounter: 223 lb 12.8 oz. BP: 100/70 Patient's last menstrual period was 09/16/2024. Assessment/Plan Encounter Diagnosis: ICD-10-CM 1. 25 weeks gestation of ([facility]) Z3A.25 POCT urinalysis dipstick manually resulted 2. Second trimester ([facility]) Z34.92 POCT urinalysis dipstick manually resulted 3. [...] Mukul Foy DO documented in this encounter [facility] 02-26-2025 History of Present illness Narrative Reason [...] Frequent UTI 11/30/2020 23 weeks gestation of ([facility]) 02/26/2025 Elevated blood sugar level 02/26/2025 Resolved Ambulatory Problems Diagnosis Date Noted Missed period 01/13/2023 Past Medical History: Diagnosis Date GDM (gestational diabetes mellitus) ([facility]) HISTORY PAST MEDICAL HISTORY SOCIAL HISTORY Past Medical History: Diagnosis Date GDM (gestational diabetes mellitus) ([facility]) Social History Tobacco Use Smoking status: [...] nursing note reviewed. Exam conducted with a promotional demonstrator present. Vitals: Estimated body mass index is 35.96 kg/m as calculated from the following: Height as of 01/30/23: 5' 6 . Weight as of this encounter: 222 lb 12.8 oz. BP: 110/70 Patient's last menstrual period was 09/16/2024. ASSESSMENT & PLAN ICD-10-CM 1. 23 weeks gestation of ([facility]) Z3A.23 POCT urinalysis dipstick manually resulted pantoprazole [...] Mukul Foy DO documented in this encounter [facility] 02-11-2025 History of Present illness Narrative Reason [...] History: Diagnosis Date GDM (gestational diabetes mellitus) ([facility]) HISTORY PAST MEDICAL HISTORY SOCIAL HISTORY Past Medical History: Diagnosis Date GDM (gestational diabetes mellitus) ([facility]) Social History Tobacco Use Smoking status: [...] ASSESSMENT & PLAN ICD-10-CM 1. Second trimester ([facility]) Z34.92 metFORMIN XR (Glucophage-XR) 500 MG 24 hr tablet POCT urinalysis dipstick manually resulted 2. 20 weeks gestation of ([facility]) Z3A.20 metFORMIN XR (Glucophage-XR) 500 MG [...] Mukul Foy DO documented in this encounter [facility] 01-15-2025 History of Present illness Narrative Reason [...] History: Diagnosis Date GDM (gestational diabetes mellitus) ([facility]) HISTORY PAST MEDICAL HISTORY SOCIAL HISTORY Past Medical History: Diagnosis Date GDM (gestational diabetes mellitus) ([facility]) Social History Tobacco Use Smoking status: [...] nursing note reviewed. Exam conducted with a promotional demonstrator present. Vitals: Estimated body mass index is 34.19 kg/m as calculated from the following: Height as of 01/30/23: 5' 6 . Weight as of this encounter: 211 lb 12.8 oz. BP: 118/72 Patient's last menstrual period was 09/16/2024. ASSESSMENT & PLAN ICD-10-CM 1. Second trimester ([facility]) Z34.92 Alpha fetoprotein, maternal Alpha fetoprotein, maternal 2. 17 weeks gestation of ([facility]) Z3A.17 Alpha fetoprotein, maternal Alpha fetoprotein, maternal 3. Vaginal discharge N89.8 SURESWAB(R) ADVANCED VAGINITIS PLUS, TMA 4. STD exposure Z20.2 CHLAMYDIA TRACHOMATIS (GENITO/STI) Neisseria gonorrhea DNA probe, direct 5. Screening, , for anatomic survey ([facility]) Z36.89 US OB 14+ weeks anatomy scan 6. Gastroesophageal reflux in ([facility]) O99.619 omeprazole (PriLOSEC) [address] capsule K21.9 7. Gestational diabetes mellitus (GDM), antepartum, gestational diabetes method of control unspecified ([facility]) O24.419 glucose blood test strip Return OB/Annual [...] virgil barton, pac documented in this encounter [facility] 12-18-2024 History of Present illness Narrative Reason [...] by JOSEPH Bowie documented in this encounter [facility] 11-14-2024 History of Present illness Narrative Reason [...] Nurse Note: Patient uncertain of doing the [place] screening. Pt was advised both labs and [...] or undercooked meat, and stay away from [facility]. Patient has also been advised to [...] Elizabeth Ware MA documented in this encounter [facility] 07-15-2024 History of Present illness Narrative Reason [...] nursing note reviewed. Exam conducted with a promotional demonstrator present. Vitals: Estimated body mass index is [...] Mukul Foy DO documented in this encounter [facility] 08-06-2023 Note HNO ID: [id number] Author: LANG CARREON APRN.HIGHWAY COMMISSIONER Service: ? Author Type: Nurse Practitioner Type: Progress Notes Filed: 08/06/2023 10:44 Note Text: Telemedicine Visit - Distance Health Virtual Visit Note I have communicated my name and active licensure. The patient's identity and physical location were verified at the time of this visit. Either the patient or their legal retail wireless sales representative has been informed of the risks and benefits of -- and alternatives to -- treatment through a remote evaluation and consents to proceed with the evaluation remotely. Patient seen on virtual platforms, [employer]. Location of patient: [place] History of Presenting Illness: Vinny Downey 22 [...] - Sleep with head elevated due to msmd-kyyvw-sckn increases cough - Continue Flonase - Flonase: [...] care - All questions answered Lang Carreon APRN.[facility] 07-11-2023 Note [facility]rophys[facility] Consult Note [...] recent labs Rajendra Sheffield MD Cardiac Electrophysiology [facility] 07-11-2023 Note Patient here for [facility] low up event monitor. Echo was not performed that was ordered at last apt in Feb 2023 by Israel Champion CNP. Does not notice palpitations as often. Denies chest pain, SOB, and lightheadedness. Review of Systems Cardiovascular: Positive for palpitations (less often). All other systems reviewed and are negative. [facility] 03-30-2023 Note -developed anemia po stpartum s/p -hgb 10.8 per recent labs [facility] 03-30-2023 Note - could be related t o being , anemia -monitor and echo to rule out cardiac concern [facility] 03-30-2023 Note - [facility] - 30-day event monit or - we will hold off on starting medication until follow-up [facility] 03-20-2023 Note New patient here to [...] All other systems reviewed and are negative. [facility] 03-20-2023 Note [facility]rophys[facility] Consult Note [...] are attached to (more content not included)... [facility] Evaluation note Diagnosis Frequent UTI Urinary tract infection, site not specified documented in this encounter [employer] Phone: evaluation note* Diagnosis Amenorrhea Absence of menstruation documented in this encounter [employer] Phone: evaluation note* Diagnosis Elevated liver enzymes Nonspecific elevation of levels of transaminase or lactic acid dehydrogenase (LDH) Mixed hyperlipidemia documented in this encounter [employer] note* Diagnosis Well woman exam with routine gynecological exam Routine gynecological examination documented in this encounter [facility] note* Diagnosis Missed menses 8 weeks gestation of , unspecified gestational age Encounter for supervision of normal first in first trimester History of miscarriage Personal history of other genital system and obstetric disorders documented in this encounter [facility] [employer] note* Diagnosis Second trimester state, incidental 12 weeks gestation of Subchorionic hematoma in first trimester, single or unspecified fetus Diabetes mellitus screening Screening for diabetes mellitus documented in this encounter [facility] [employer] note* Diagnosis Subchorionic hematoma, antepartum, first trimester, not applicable or unspecified fetus documented in this encounter [facility] Diagnosis Second trimester ([facility]) state, incidental 17 weeks gestation of ([facility]) Vaginal discharge Leukorrhea, not specified as infective STD exposure Screening, , for anatomic survey ([facility]) Encounter for anatomic survey Gastroesophageal reflux in ([facility]) Gestational diabetes mellitus (GDM), antepartum, gestational diabetes method of control unspecified ([facility]) documented in this encounter [facility] HealthcareEvaluation note* Diagnosis Second trimester ([facility]) state, incidental 20 weeks gestation of ([facility]) documented in this encounter [facility]* Diagnosis 23 weeks gestation of ([facility]) Elevated blood sugar level Other abnormal glucose Gastroesophageal reflux disease without esophagitis Esophageal reflux documented in this encounter [facility] HealthcareEvaluation note* Diagnosis 25 weeks gestation of ([facility]) Second trimester ([facility]HS[facility]HCC) state, incidental Gastroesophageal reflux disease without esophagitis Esophageal reflux documented in this encounter [facility] Healthcare[facility] note* Diagnosis 28 weeks gestation of ([facility]) Third trimester ([facility]) state, incidental Dizziness Dizziness and giddiness Gestational diabetes mellitus (GDM), antepartum, gestational diabetes method of control unspecified ([facility]) History of miscarriage Personal history of other genital system and obstetric disorders Anemia, unspecified type UTI symptoms documented in this encounter [facility] HealthcareEvaluation note* Diagnosis Third trimester ([facility]) state, incidental 30 weeks gestation of ([facility]) documented in this encounter [facility] Healthcare[facility] note* Diagnosis Third trimester ([facility]) state, incidental 32 weeks gestation of ([facility]) documented in this encounter [facility] HealthcareReason for visit Narrative* Imaging (Routine) - Open Specialty Diagnoses / Procedures Referred By Ever winslow Referred To Contact Radiology Diagnoses Subchorionic hematoma, antepartum, first trimester, not applicable or unspecified fetus Procedures US OB LESS THAN 14 WEEKS SINGLE OR FIRST GESTATION W DOPPLER US OB TRANSVAGINAL Mukul Foy MD [address] [place] [address] Phone: tel: Referral ID Status Reason Start Date Expiration Date Visits Re quested Visits Authorized [id number] Open 12/19/2024 12/19/2025 1 1 [facility] Assessments Diagnosis Screening for cervical cancer Screening for malignant neoplasm of the cervix Encounter for annual routine gynecological examination Diagnosis Encounter for screening for HIV Other fatigue Wellness examination Advance Directives No Advanced Directives Records FoundDocuments on File Type Date Recorded Patient Tape Control Skin Or Spar Mill Operator Expl anation Advance Directives and Living Will Power of Apiculturist Documents on File Type Date Recorded Patient Tape Control Skin Or Spar Mill Operator Expl anation ACP-Advance Directive ACP-Power of Apiculturist Documents on File Type Date Recorded Patient Tape Control Skin Or Spar Mill Operator Expl anation ACP-Advance Directive ACP-Power of Apiculturist Summary Purpose Family History No Family History Records FoundNo Family History Records FoundNo Family History Records FoundNo Family History Records FoundNo Family History Records FoundNo Family History Records FoundNo Family History Records Found Reason for Referral Status Reason Specialty Diagnoses / Procedures Referre d By Contact Referred To Contact Closed Radiology Diagnoses Frequent UTI Procedures US RENAL COMPLETE Lorena Ricks, TURNING LATHE TENDER - HIGHWAY COMMISSIONER [address] [place] [address] Additional Source Comments INFORMATION SOURCE (unrecogn ized section and content) DATE CREATED AUTHOR 10/14/2020 [facility] DATE CREATED AUTHOR AUTHOR'S ORGANIZ ATION 09/26/2021 [facility] DATE CREATED AUTHOR AUTHOR'S ORGANIZ ATION 12/30/2022 [facility] DATE CREATED AUTHOR AUTHOR'S ORGANIZ ATION 08/03/2023 [facility] DATE CREATED AUTHOR AUTHOR'S ORGANIZ ATION 08/07/2023 [facility] DATE CREATED AUTHOR AUTHOR'S ORGANIZ ATION 01/09/2025 [facility] DATE CREATED AUTHOR AUTHOR'S ORGANIZ ATION 05/03/2025 [facility] EPIC Reason for Visit (unrecogniz ed section and content) Status Reason Specialty Diagnoses / Procedures Referre d By Contact Referred To Contact Closed Radiology Diagnoses Frequent UTI Procedures US RENAL COMPLETE Lorena Ricks, TURNING LATHE TENDER - HIGHWAY COMMISSIONER [address] [place] [address] Reason Comments Gynecologic Exam Reason Comments Amenorrhea Reason Comments Routine Visit Reason Comments Routine Visit [facility] Screening Care Teams (unrecognized sec tion and content) Sign Maker Relationship Specialty Start Date End Date Ynes Rodriguez, TURNING LATHE TENDER - HIGHWAY COMMISSIONER [address] [place] [address] PCP - General Family Nurse Practitioner 05/04/20 Sign Maker Relationship Specialty Start Date End Date Ynes Rodriguez, TURNING LATHE TENDER - HIGHWAY COMMISSIONER [address] [place] [address] PCP - General Family Nurse Practitioner 05/04/20 Sign Maker Relationship Specialty Start Date End Date Ynes Rodriguez, TURNING LATHE TENDER - HIGHWAY COMMISSIONER [address] [place] [address] PCP - General Family Nurse Practitioner 08/02/22 Sign Maker Relationship Specialty Start Date End Date Ynes Rodriguez, TURNING LATHE TENDER - HIGHWAY COMMISSIONER [address] [place] [address] PCP - General Family Nurse Practitioner 08/02/22 Sign Maker Relationship Specialty Start Date End Date Ynes Rodriguez, TURNING LATHE TENDER - HIGHWAY COMMISSIONER [address] [place] [address] PCP - General Family Nurse Practitioner 08/02/22 [...] BE BASED ON THE PRIMARY CLINICAL RECORDS. [employer] provides no warranty or guarantee of the accuracy or completeness of information in this document.
--- OUTSIDE RECORDS SUMMARY | 2025-05-10 12:20 | XMS_ITS | Encounter Summary ---
Author Organization [facility] Address [address] [place] [address] Care Team Providers Care Heel Cementer Machine Name Role Phone Unavailable Primary Care Provider Unavailabl e Encounter Details Date Type Department Care Team ([facility] Contact Info) Description 01/11/2023 Abstract DIANE SANTO [facility] [place] [phone] Mukul Foy DO [facility] [place] [address] Social History Tobacco Use Types Packs/Day Years [...] Upcoming Encounters Date Type Department Care Team ([facility] Contact Info) Description 05/14/2025 2:50 PM EDT Routine DIANE SANTO [address] [place] [phone] Mukul Foy DO [facility] [place] [address] 07/28/2025 4:00 PM [place] [address] Mukul Foy, [address] [place] [address] documented as of this encounter Visit Diagnoses Not on filedocumented in this encounter
--- OUTSIDE RECORDS SUMMARY | 2025-05-10 12:20 | XMS_ITS | Encounter Summary ---
Author Organization [facility] Address [address] [place] [address] Care Team Providers Care Change Management Manager Name Role Phone Unavailable Primary Care Provider Unavailabl e Encounter Details Date Type Department Care Team ([facility] Contact Info) Description 01/06/2023 Abstract DIANE SANTO [facility] [place] [phone] Mukul Foy DO [facility] [place] [address] Social History Tobacco Use Types Packs/Day Years [...] Upcoming Encounters Date Type Department Care Team ([facility] Contact Info) Description 05/14/2025 2:50 PM EDT Routine DIANE SANTO [address] [place] [phone] Mukul Foy DO [facility] [place] [address] 07/28/2025 4:00 PM [place] [address] Mukul Foy, [address] [place] [address] documented as of this encounter Visit Diagnoses Not on filedocumented in this encounter
--- OUTSIDE RECORDS SUMMARY | 2025-05-10 12:20 | XMS_ITS | Encounter Summary ---
Author Organization [facility] Address [address] [place] [address] Care Team Providers Care Flight Dispatcher Name Role Phone Unavailable Primary Care Provider Unavailabl e Encounter Details Date Type Department Care Team ([facility] Contact Info) Description 12/12/2022 Clinisync Result Encounter [facility] Leon Brown MD [address] [facility] [place] [phone] Social History Tobacco Use Types Packs/Day Years Used Date Smoking Tobacco: Never Assessed Comments Unknown Sex and Gender Information Value Date Recorded Sex Assigned at Not on file Legal Sex Female 11:47 PM EDT Gender Identity Not on file Sexual Orientation Not on file documented as of this encounter Plan of Treatment Upcoming Encounters Date Type Department Care Team ([facility] Contact Info) Description 05/14/2025 2:50 PM EDT Routine DIANE SANTO [address] [place] [address] Mukul Foy, DO [address] [place] [address] 07/28/2025 4:00 PM EST Office Visit DIANE SANTO [address] [place] [address] Mukul Foy, DO [address] [place], [place] [phone] documented as of this encounter Procedures Procedure [...]
--- OUTSIDE RECORDS SUMMARY | 2025-05-10 12:20 | XMS_ITS | Encounter Summary ---
Author Organization [facility] Address [address] [place] [address] Care Team Providers Care Furniture Crater Name Role Phone Unavailable Primary Care Provider Unavailabl e Encounter Details Date Type Department Care Team ([facility] Contact Info) Description 01/19/2023 Abstract DIANE SANTO [facility] [place] [phone] Mukul Foy DO [facility] [place] [address] Social History Tobacco Use Types Packs/Day Years [...] Upcoming Encounters Date Type Department Care Team ([facility] Contact Info) Description 05/14/2025 2:50 PM EDT Routine DIANE SANTO [address] [place] [phone] Mukul Foy DO [facility] [place] [address] 07/28/2025 4:00 [place] [address] Mukul Foy, [address] [place] [address] documented as of this encounter Visit Diagnoses Not on filedocumented in this encounter
--- OUTSIDE RECORDS SUMMARY | 2025-05-10 12:20 | XMS_ITS | Encounter Summary ---
Author Organization [facility] Address [address] [place] [address] Care Team Providers Care Jig Worker Name Role Phone Unavailable Primary Care Provider Unavailabl e Encounter Details Date Type Department Care Team (Late Contact Info) Description 12/23/2022 Orders Only NOMRenzo SANTO [address] [place] [address] [place] [address] Provider, MD Yuval [address] [place] [address] Social History Tobacco Use Types Packs/Day [...] 2:50 PM EDT Routine DIANE SANTO [address] [place] [address] Mukul Foy, DO [address] [place] [address] 07/28/2025 4:00 PM EST Office Visit DIANE SANTO [address] [place] [address] Mukul Foy, DO [address] [place] [address] documented as of this encounter Procedures Procedure Name Priority Date/Time Associated Diagnosis Comments AST AND ALT Routine 12/14/2022 12:04 PM EDT documented in this encounter Results * AST AND ALT (12/14/2022 12:04 PM EDT) us Historical Provider LAB BLOOD ORDERABLES Mariam l Result documented in this encounter Visit Diagnoses Not on filedocumented in this encounter
--- OUTSIDE RECORDS SUMMARY | 2025-05-10 12:20 | XMS_ITS | Encounter Summary ---
Author Organization [facility] Address [address] [place] [address] Care Team Providers Care Cheese Sprayer Name Role Phone Unavailable Primary Care Provider Unavailabl e Encounter Details Date Type Department Care Team ([facility] Contact Info) Description 01/11/2023 Abstract DIANE SANTO [facility] [place] [phone] Mukul Foy DO [facility] [place] [address] Social History Tobacco Use Types Packs/Day Years [...] Upcoming Encounters Date Type Department Care Team ([facility] Contact Info) Description 05/14/2025 2:50 PM EDT Routine DIANE SANTO [address] [place] [phone] Mukul Foy DO [facility] [place] [address] 07/28/2025 4:00 [place] [address] Mukul Foy, [address] [place] [address] documented as of this encounter Visit Diagnoses Not on filedocumented in this encounter
--- OUTSIDE RECORDS SUMMARY | 2025-05-10 12:20 | XMS_ITS | Encounter Summary ---
Author Organization [facility] Address [address] [place] [address] Care Team Providers Care Research Animal Attendant Name Role Phone Unavailable Primary Care Provider Unavailabl e Encounter Details Date Type Department Care Team (Late Contact Info) Description 03/13/2025 Abstract NOMRenzo SANTO [facility] [place] [phone] Mukul Foy DO [facility] [place], [place] [phone] Social History Tobacco Use Types Packs/Day Years [...] EDT Routine DIANE SANTO [address] [place] [phone] Mukul Foy DO [address] [place], [place] [phone] 07/28/2025 4:00 PM EST Office Visit [place] [facility] [address] [facility] [address] Mukul Foy DO [address] [facility] [place] [address] documented as of this encounter Goals Goal Patient Goal Type Associated Problems Recent Progress Patient-Stated? Author Reminders Care Plan OB Reminders No Open Scheduling, Background documented as of this encounter Visit Diagnoses Not on filedocumented in this encounter Additional Health Concerns Active Problems Noted Date Diagnosed Date OB Reminders 11/29/2024 documented as of this encounter
--- OUTSIDE RECORDS SUMMARY | 2025-05-10 12:20 | XMS_ITS | Encounter Summary ---
Author Organization [facility] Address [address] [place] [address] Care Team Providers Care Restaurant Delivery Driver Name Role Phone Unavailable Primary Care Provider Unavailabl e Encounter Details Date Type Department Care Team ([facility] Contact Info) Description 01/26/2023 Abstract NOMRenzo SANTO [address] [place] [address] [place] [phone] Regina Barton PA [address] [facility] [address] [place], [place] [address] Social History Tobacco Use Types Packs/Day Years [...] Upcoming Encounters Date Type Department Care Team ([facility] Contact Info) Description 05/14/2025 2:50 PM EDT Routine NOMRenzo SANTO [address] [facility] [place] [phone] Mukul Foy DO [address] [place], [place] [address] 07/28/2025 4:00 PM EST Office Visit DIANE SANTO [address] [place], [place] [address] [address] Mukul Foy, [address] [place] [address] documented as of this encounter Visit Diagnoses Not on filedocumented in this encounter
--- OUTSIDE RECORDS SUMMARY | 2025-05-10 12:20 | XMS_ITS | Encounter Summary ---
Author Organization [facility] Address [address] [place] [address] Care Team Providers Care Battery Assembler Name Role Phone Unavailable Primary Care Provider Unavailabl e Encounter Details Date Type Department Care Team ([facility] Contact Info) Description 01/11/2023 Abstract DIANE SANTO [facility] [place] [phone] Mukul Foy DO [facility] [place] [address] Social History Tobacco Use Types Packs/Day Years [...] Upcoming Encounters Date Type Department Care Team ([facility] Contact Info) Description 05/14/2025 2:50 PM EDT Routine DIANE SANTO [address] [place] [phone] Mukul Foy DO [facility] [place] [address] 07/28/2025 4:00 PM [place] [address] Mukul Foy, [address] [place] [address] documented as of this encounter Visit Diagnoses Not on filedocumented in this encounter
--- OUTSIDE RECORDS SUMMARY | 2025-05-10 12:21 | XMS_ITS | Encounter Summary ---
Author Organization [facility] Address [address] [place] [address] Care Team Providers Care Brazer Assembler Name Role Phone Unavailable Primary Care Provider Unavailabl e Encounter Details Date Type Department Care Team ([facility] Contact Info) Description 03/21/2023 Abstract NOMRenzo SANTO [address] [facility] [place] [phone] Carola France LPN 102 [facility] [place] [address] Social History Tobacco Use Types Packs/Day Years [...] 2:50 PM EDT Routine DIANE SANTO [address] [facility] [place] [phone] Mukul Foy DO [address] [facility] [place] [address] 07/28/2025 4:00 PM EST Office Visit DIANE SANTO [address] [facility] [place] [address] Mukul Foy, [address] [place] [address] documented as of this encounter Visit Diagnoses Not on filedocumented in this encounter
--- OUTSIDE RECORDS SUMMARY | 2025-05-10 12:21 | XMS_ITS | Encounter Summary ---
Author Organization [facility] Address [address] [place] [address] Care Team Providers Care Chocolate Finisher Operator Name Role Phone Unavailable Primary Care Provider Unavailabl e Encounter Details Date Type Department Care Team (Late Contact Info) Description 05/02/2025 Abstract NOMRenzo SANTO [facility] [place] [phone] Mukul Foy DO [facility] [place], [place] [phone] Social History Tobacco Use Types Packs/Day Years [...] EDT Routine DIANE SANTO [address] [place] [address] Mukul Foy DO 102 [place], [place] [phone] 07/28/2025 4:00 PM EST Office Visit DIANE [place] OBGYN [address] [facility] [place] [address] Mukul Foy DO [address] [facility] [place] [address] documented as of this encounter Goals Goal Patient Goal Type Associated Problems Recent Progress Patient-Stated? Author Reminders Care Plan OB Reminders No Open Scheduling, Background documented as of this encounter Visit Diagnoses Not on filedocumented in this encounter Additional Health Concerns Active Problems Noted Date Diagnosed Date OB Reminders 11/29/2024 documented as of this encounter
--- OUTSIDE RECORDS SUMMARY | 2025-05-10 12:21 | XMS_ITS | Encounter Summary ---
Author Organization [facility] Address [address] [place] [address] Care Team Providers Care Head Grinder Name Role Phone Unavailable Primary Care Provider Unavailabl e Encounter Details Date Type Department Care Team (Late Contact Info) Description 02/28/2025 Abstract NOMRenzo SANTO [facility] [place] [phone] Mukul Foy DO [facility] Burna Viola [place], [place] [phone] Social History Tobacco Use Types Packs/Day Years [...] Routine DIANE SANTO [address] [place] [address] Mukul Foy DO 102 [place], [place] [phone] 07/28/2025 4:00 PM EST Office Visit DIANE [place] OBGYN [address] [facility] [place] [address] Mukul Foy DO [address] [facility] [place] [address] documented as of this encounter Goals Goal Patient Goal Type Associated Problems Recent Progress Patient-Stated? Author Reminders Care Plan OB Reminders No Open Scheduling, Background documented as of this encounter Visit Diagnoses Not on filedocumented in this encounter Additional Health Concerns Active Problems Noted Date Diagnosed Date OB Reminders 11/29/2024 documented as of this encounter
--- OUTSIDE RECORDS SUMMARY | 2025-05-10 12:21 | XMS_ITS | Encounter Summary ---
Author Organization [facility] Address [address] [place] [address] Care Team Providers Care Monogram Maker Name Role Phone Unavailable Primary Care Provider Unavailabl e Encounter Details Date Type Department Care Team (Late Contact Info) Description 03/17/2023 Abstract NOMRenzo SANTO [address] [place] [phone] Elizabeth Ware [place] [address] [place] [address] Social History Tobacco Use Types Packs/Day Years [...] Encounters Date Type Department Care Team ([facility] Contact Info) Description 05/14/2025 2:50 PM EDT Routine DIANE SANTO [address] [place] [address] Mukul Foy DO 102 [place], [place] [phone] 07/28/2025 4:00 PM EST Office Visit DIANE SANTO [address] [place] [address] Mukul Foy [address] [place] [address] documented as of this encounter Visit Diagnoses Not on filedocumented in this encounter
--- OUTSIDE RECORDS SUMMARY | 2025-05-10 12:21 | XMS_ITS | Encounter Summary ---
Author Organization [facility] Address [address] [place] [address] Care Team Providers Care Cycle Repairer Name Role Phone Unavailable Primary Care Provider Unavailabl e Encounter Details Date Type Department Care Team (Late Contact Info) Description 04/15/2025 Abstract NOMRenzo SANTO [facility] [place] [phone] Mukul Foy DO [facility] [place], [place] [phone] Social History Tobacco Use Types Packs/Day Years [...] Routine DIANE SANTO [address] [place] [address] Mukul Foy DO 102 [place], [place] [phone] 07/28/2025 4:00 PM EST Office Visit DIANE [place] OBGYN [address] [facility] [place] [address] Mukul Foy DO 102 [facility] [place] [address] documented as of this encounter Goals Goal Patient Goal Type Associated Problems Recent Progress Patient-Stated? Author Reminders Care Plan OB Reminders No Open Scheduling, Background documented as of this encounter Visit Diagnoses Not on filedocumented in this encounter Additional Health Concerns Active Problems Noted Date Diagnosed Date OB Reminders 11/29/2024 documented as of this encounter
--- OUTSIDE RECORDS SUMMARY | 2025-05-10 12:21 | XMS_ITS | Encounter Summary ---
Author Organization [facility] Address [address] [place] [address] Care Team Providers Care Assistant Speech Language Pathologist Name Role Phone Unavailable Primary Care Provider Unavailabl e Encounter Details Date Type Department Care Team (Late Contact Info) Description 03/03/2025 Abstract NOMRenzo SANTO [facility] [place] [phone] Mukul Foy DO [facility] [place], [facility] Social History Tobacco Use Types Packs/Day [...] Routine DIANE SANTO [address] [place] [address] Mukul Foy DO 102 [place], [place] [phone] 07/28/2025 4:00 PM EST Office Visit DIANE [place] OBGYN [address] [place] [address] Mukul Foy DO [address] [facility] [place] [address] documented as of this encounter Goals Goal Patient Goal Type Associated Problems Recent Progress Patient-Stated? Author Reminders Care Plan OB Reminders No Open Scheduling, Background documented as of this encounter Visit Diagnoses Not on filedocumented in this encounter Additional Health Concerns Active Problems Noted Date Diagnosed Date OB Reminders 11/29/2024 documented as of this encounter
--- OUTSIDE RECORDS SUMMARY | 2025-05-10 12:21 | XMS_ITS | Encounter Summary ---
Author Organization [facility] Address [address], [address] [place] [address] Care Team Providers Care Patient Accounts Coordinator Name Role Phone Ynes Mistry SPEECH LANGUAGE PATHOLOGY ASSISTANT - ONLINE MERCHANDISING SPECIALIST Primary Care Provide r Reason for Visit * Reason Comments Medication Refill Encounter Details Date Type Department Care Team (Late st Contact Info) Description 07/08/2021 Refill [facility] [address] [place] [address] [address] [place] [phone] Jo Ann Live APRN - [facility] [address] [place] [phone] Medication Refill Social History Tobacco Use Types Packs/Day Years Used Date Smoking Tobacco: Never Smokeless Tobacco: Never Alcohol Use Standard Drinks/Week Comments Yes 0 (1 standard drink = 0.6 oz pur e alcohol) social Overall Financial Resource Strain (CARDIA) Answe r Date Recorded How hard is it for you to pa y for the very basics like food, housing, medical care, and heating? Not hard at all 05/01/2020 PHQ-2 Answer Date Recorded PHQ-9 Total Score 17 08/17/2020 Hunger Vital Sign Answer Date Recorded Within the past 12 months, y ou worried that your food would run out before you got the money to buy more. Never true 05/01/20 20 Within the past 12 months, t he food you bought just didn't last and you didn't have money to get more. Never true 05/01/2020 PRAPARE - Transportation Answer Date Re corded In the past 12 months, has l ack of transportation kept you from medical appointments or from getting medications? No 03/2020 In the past 12 months, has l ack of transportation kept you from meetings, work, or from getting things needed for daily living? No 05/01/2020 Comments No Sex and Gender Information Value Date Recorded Sex Assigned at Female 05/20/2024 8:24 PM EDT Legal Sex Female 3:31 PM EST Gender Identity Female 05/20/2024 8:24 PM EDT Sexual Orientation Not on file documented as of this encounter Plan of Treatment Upcoming Encounters Date Type Department Care Team (Late st Contact Info) Description 05/14/2025 11:40 AM EDT Office Visit [facility] [address] [place] [address] [address] [place] [address] Ynes Mistry, SPEECH LANGUAGE PATHOLOGY ASSISTANT - ONLINE MERCHANDISING SPECIALIST [address] [place] [address] Dr [address] [facility] [place] [address] 6 month f/u documented as of this encounter Visit Diagnoses Diagnosis Irregular menses Irregular menstrual cycle documented in this encounter Care Teams Patient Accounts Coordinator Relationship Specialty Start Date End Date Ynes Mistry, SPEECH LANGUAGE PATHOLOGY ASSISTANT - ONLINE MERCHANDISING SPECIALIST [address] [place] [address] Dr [address] [place] [address] PCP - General Family Nurse Practitioner 08/02/22 documented as of this encounter
--- OUTSIDE RECORDS SUMMARY | 2025-05-10 12:21 | XMS_ITS | Encounter Summary ---
Author Organization [facility] Address [address] [place] [address] Care Team Providers Care Paint Spray Tender Name Role Phone Unavailable Primary Care Provider Unavailabl e Encounter Details Date Type Department Care Team ([facility] Contact Info) Description 10/25/2023 Abstract NOMRenzo SANTO [address] [facility] [place] [phone] Carola France LPN 102 [facility] [place] [facility] Social History Tobacco Use Types Packs/Day [...] 2:50 PM EDT Routine DIANE SANTO [address] [facility] [place] [phone] Mukul Foy DO [address] [place] [address] [place] [address] 07/28/2025 4:00 PM EST Office Visit DIANE SANTO [address] [place], [place] [address] [address] Mukul Foy, [address] [place] [address] documented as of this encounter Visit Diagnoses Not on filedocumented in this encounter
--- OUTSIDE RECORDS SUMMARY | 2025-05-10 12:21 | XMS_ITS | Encounter Summary ---
Author Organization [facility] Address [address] [place] [address] Care Team Providers Care Manager Of Compensation Name Role Phone Unavailable Primary Care Provider Unavailabl e Encounter Details Date Type Department Care Team ([facility] Contact Info) Description 02/19/2024 Orders Only NOMRenzo SANTO [address] [facility] [place] [address] Carola France LPN 102 [facility] [place] [address] Social History Tobacco Use Types Packs/Day Years [...] 2:50 PM EDT Routine NOMRenzo SANTO [address] [facility] [phone] Mukul Foy DO [address] [facility] [place] [address] 07/28/2025 4:00 PM EST Office Visit NOMRenzo SANTO [address] [place] [address] Mukul Foy, DO 102 [place] [address] documented as of this encounter Procedures Procedure Name Priority Date/Time Associated Diagnosis Comments PAP SMEAR Routine 07/05/2023 12:00 AM EST documented in this encounter Results * Pap Smear (07/05/2023 12:00 AM EST) Swab Cervical swab / Unknown us Law Nurse [facility] Ob LAB CYTOLOGY ORDERABLES Final Result EXTERNAL LAB documented in this encounter Visit Diagnoses Not on filedocumented in this encounter
--- OUTSIDE RECORDS SUMMARY | 2025-05-10 12:21 | XMS_ITS | Encounter Summary ---
Author Organization [facility] Address [address] [place] [address] Care Team Providers Care Legger Press Operator Name Role Phone Unavailable Primary Care Provider Unavailabl e Encounter Details Date Type Department Care Team (Late Contact Info) Description 04/30/2025 Bamboo flowsheet DIANE SANTO [address] [facility] [place] [address] Tiffany Li, STUDIO SET UP WORKER [address] [facility] [place] [address] Social History Tobacco Use Types Packs/Day [...] 2:50 PM EDT Routine DIANE SANTO [address] [facility] [place] [address] Mukul Foy DO [address] [facility] [address] [place], [facility] 07/28/2025 4:00 PM EST Office Visit [facility] [address] [facility] [place] [address] Mukul Foy DO [address] [facility] [place] [address] documented as of this encounter Goals Goal Patient Goal Type Associated Problems Recent Progress Patient-Stated? Author Reminders Care Plan OB Reminders No Open Scheduling, Background documented as of this encounter Visit Diagnoses Not on filedocumented in this encounter Additional Health Concerns Active Problems Noted Date Diagnosed Date OB Reminders 11/29/2024 documented as of this encounter
--- OUTSIDE RECORDS SUMMARY | 2025-05-10 12:21 | XMS_ITS | Encounter Summary ---
Author Organization [facility] Address [address] [place] [address] Care Team Providers Care Outbound Sales Advisor Name Role Phone Unavailable Primary Care Provider Unavailabl e Encounter Details Date Type Department Care Team (Late st Contact Info) Description 04/30/2025 Clinisync Result Encounter [facility] External Department Unsolicited Britt Foy DO 102 [place] [address] Social History Tobacco Use Types Packs/Day Years [...] 05/14/2025 2:50 [place] [phone] Britt Foy DO 102 [place] [address] 07/28/2025 4:00 PM EST Office Visit DIANE [place] [address] Britt Foy DO [address] [facility] [place] [address] documented as of this encounter Goals Goal [...] PM EDT Narrative 04/30/2025 11:02 [place] [address] Ultrasound Report Signed Patient: VINNY HERRERA MR#: [id number] : 2000 Acct:[id number] Age/Sex: 24 / F ADM Date: 04/30/25 Loc: US Attending Dr: Britt Foy D.O. Ordering Physician: Britt Foy D.O. Date of Service: 04/30/25 Procedure(s): US OB BPP w non-stress Accession Number(s): [id number] cc: Britt Foy D.O.; Ynes Mistry NP [address] [address] Patient Name: VINNY HERRERA MRN: [id number] date: 2000 Sex: F Assigned Patient Location: [facility] Current Patient Location: Accession/Order Number: [id number] Exam Date: 04/30/2025 15:57 Report Date: 04/30/2025 22:59 At the request of: BRITT FOY DO Procedure: US OB BPP w non-stress Ultrasound biophysical profile INDICATION: Gestational diabetes COMPARISON: 04/05/2025 FINDINGS/IMPRESSION:: Fetus cephalic position. 02/28 score biophysical profile. heart rate 145 beats per minutes. JAMAL 12.7 cm. Impression dictated by: Chevy Moreland M.D. 04/30/2025 10:59 PM Dictation Location: [place] [address] Electronically authenticated by: [id number] Y Date: 04/30/2025 22:59 Dictated By: Chevy Moreland M.D. Signed By: 04/30/252301 DD/ 58 TD/TT: Retail Associate Manager Bilingual: Procedure Note Radiology, Radiologist, MD - 04/30/2025 [place] [address] Ultrasound Report Signed Patient: VINNY HERRERA CMR#: [id number] : 2000Acct:[id number] Age/Sex: 24 / FADM Date: 04/30/25 Loc: US Attending Dr: Britt Foy D.O. Ordering Physician: Britt Foy D.O. Date of Service: 04/30/25 Procedure(s): US OB BPP w non-stress Accession Number(s): [id number] cc: Britt Foy D.O.; Ynes Mistry [place] [id number] Patient Name: VINNY HERRERA MRN: [facility]:[id number] date: 2000 Sex: F Assigned Patient Location: [facility] Current Patient Location: Accession/Order Number: [id number] Exam Date: 04/30/2025 15:57 Report Date: 04/30/2025 22:59 At the request of: BRITT FOY DO Procedure: US OB BPP w non-stress Ultrasound biophysical profile INDICATION: Gestational diabetes COMPARISON: 04/05/2025 FINDINGS/IMPRESSION:: Fetus cephalic position. 02/28 score biophysical profile. heart rate 145 beats per minutes. JAMAL 12.7 cm. Impression dictated by: Chevy Moreland M.D. 04/30/2025 10:59 PM Dictation Location: [place] [address] Electronically authenticated by: [id number] Y Date: 2:59 Dictated By: Chevy Moreland M.D. Signed By:04/30/252301 DD/ 58 TD/TT: Retail Associate Manager Bilingual: us Britt Foy DO [facility] Final Result documented in this encounter Visit Diagnoses Not on filedocumented in this encounter Additional Health Concerns Active Problems Noted Date Diagnosed Date OB Reminders 11/29/2024 documented as of this encounter
--- OUTSIDE RECORDS SUMMARY | 2025-05-10 12:21 | XMS_ITS | Encounter Summary ---
Author Organization [facility] Address [address] [place] [address] Care Team Providers Care Director Sanitation Bureau Name Role Phone Unavailable Primary Care Provider Unavailabl e Encounter Details Date Type Department Care Team ([facility] [address] Contact Info) Description 02/07/2023 Abstract DIANE SANTO [facility] [place] [phone] Mukul Foy DO [facility] [place] [address] Social History Tobacco Use Types Packs/Day Years [...] Department Care Team ([facility] [address] Contact Info) Description 05/14/2025 2:50 PM EDT Routine DIANE SANTO [address] [place] [phone] Mukul Foy DO [facility] [place] [address] 07/28/2025 4:00 [place] [address] Mukul Foy, [address] [place] [address] documented as of this encounter Visit Diagnoses Not on filedocumented in this encounter
--- OUTSIDE RECORDS SUMMARY | 2025-05-10 12:21 | XMS_ITS | Encounter Summary ---
Author Organization [facility] Address [address] [place] [address] Care Team Providers Care Electrical System Specialist Name Role Phone Unavailable Primary Care [...] Routine DIANE SANTO [address] [place] [address] Mukul Foy, DO 102 [place], [facility] 07/28/2025 4:00 PM EST Office Visit DIANE SANTO [address] [place] [address] Mukul Foy, DO 102 [place] [address] documented as of this encounter Goals Goal Patient Goal Type Associated Problems Recent Progress Patient-Stated? Author Reminders Care Plan OB Reminders No Open Scheduling, Background documented as of this encounter Visit Diagnoses Not on filedocumented in this encounter Additional Health Concerns Active Problems Noted Date Diagnosed Date OB Reminders 11/29/2024 documented as of this encounter
--- OUTSIDE RECORDS SUMMARY | 2025-05-10 12:21 | XMS_ITS | Encounter Summary ---
Author Organization [facility] Address [address] [place] [address] Care Team Providers Care Outboard Motorboat Operator Name Role Phone Unavailable Primary Care Provider Unavailabl e Encounter Details Date Type Department Care Team ([facility] Contact Info) Description 02/02/2023 Abstract DIANE SANTO [facility] [phone] Mukul Foy [place] [facility] [place] [address] Social History Tobacco Use Types Packs/Day Years [...] Upcoming Encounters Date Type Department Care Team ([facility] Contact Info) Description 05/14/2025 2:50 PM EDT Routine DIANE SANTO [address] [place] [phone] Mukul Foy DO [facility] [place] [address] 07/28/2025 4:00 PM [place] [address] Mukul Foy, [address] [place] [address] documented as of this encounter Visit Diagnoses Not on filedocumented in this encounter
--- OUTSIDE RECORDS SUMMARY | 2025-05-10 12:21 | XMS_ITS | Clinical Summary ---
Author Organization [facility] Healthcare Address [address] [place] [address] Care Team Providers Care Social Media Director Name Role Phone Unavailable Primary Care Provider Unavailabl e Allergies No known active allergies Medications sertraline (Zoloft) 50 MG tabletIndications:A nxiety, generalized TAKE 1 TABLET BY MOUTH EVERY DAY IN THE MORNING 30 tablet 3 10/26/19 25 Active glucose blood test stripIndications:Ge stational diabetes mellitus (GDM), antepartum, gestational diabetes method of control unspecified ([facility]) Use as instructed 100 each 12 01/16/20 25 026 Active metFORMIN XR (Glucophage-XR) 500 MG 24 hr tabletIndications:S econd trimester ([facility]),20 weeks gestation of ([facility]) Take 2 tablets (1,000 mg) by mouth in the evening. Take with meals 60 tablet 5 02/12/20 25 026 Active pantoprazole (Protonix) 40 MG EC tabletIndications:2 3 weeks gestation of ([facility]),Elevated blood sugar level,Gastroesophag eal reflux disease without [...] gestational diabetes mellitus (GDM) during , antepartum ([facility]) Inject 1 each under the skin Daily 100 each 04/07/20 25 025 Active insulin glargine (Lantus SoloStar) 100 UNIT/ML penIndications:Hype rglycemia Inject 10 Units under the skin at bedtime FILL ACCORDING TO INSURANCE COVERAGE 3 mL 04/07/20 25 Active iron polysaccharides (ProFe) 391.3 (180 Fe) [...] Date Diagnosed Date 23 weeks gestation of ([facility]) 2024 Elevated blood sugar level 02/26/2025 Abnormal [...] Type Department Care Team Description 05/02/2025 Abstract DIANE SANTO [address] [place] [address] Britt Foy, 04/30/2025 3:00 PM EDT Routine DIANE BURNETTEN [address] [place] [address] Tiffany Li, ASHWIN Third trimester ([facility]); 32 weeks gestation of ([facility]) 04/30/2025 Clinisync Result Encounter [facility] External Department Unsolicited Britt Foy, DO 04/30/2025 Bamboo flowsheet [facility] [address] [place] [address] Tiffany Li NP 04/27/2025 Travel 04/15/2025 Abstract [facility] [address] [place] [address] Britt Foy, 04/14/2025 3:20 PM EDT Routine [facility] [address] Regina Cummins PA Third trimester ([facility]); 30 weeks gestation of ([facility]) 04/14/2025 Bamboo flowsheet [facility] BURNETTEN [address] [place] [address] Regina Cummins PA 04/14/2025 Travel 04/07/2025 Telephone [facility] JOHNSONGYN [address] [place] [address] Elizabeth Ware MA 04/05/2025 Clinisync Result Encounter NOMS External Department Unsolicited Regina Cummins PA 04/05/2025 Clinisync Result Encounter NOMS External Department Unsolicited Regina Cummins PA 04/03/2025 3:30 PM EDT Routine [facility] [place] [address] Regina Cummins PA 28 weeks gestation of ([facility]); Third trimester ([facility]); Dizziness; Gestational diabetes mellitus (GDM), antepartum, gestational diabetes method of control unspecified ([facility]); History of miscarriage; Anemia, unspecified type; UTI symptoms 04/03/2025 Bamboo flowsheet [facility] [address] [place] [address] Regina Cummins PA 04/02/2025 Telephone [facility] [address] [place] [address] Suyapa Hazel LPN 04/01/2025 Travel 03/13/2025 Abstract [facility] [place] [facility] [address] [place] [address] Britt Foy, DO 03/12/2025 3:50 PM EDT Routine [facility] [place] [facility] [address] [place] [address] Britt Foy, DO 25 weeks gestation of ([facility]); Second trimester ([facility]); Gastroesophageal reflux disease without esophagitis 03/12/2025 Bamboo flowsheet [facility] [place] [facility] [address] [place] [address] Britt Foy, DO 03/03/2025 Abstract [facility] [place] [facility] [address] [place] [address] Britt Foy, 02/28/2025 Abstract [facility] [address] [place] [address] Britt Foy, DO 02/26/2025 3:30 PM EDT Routine [facility] [address] [place] [address] Britt Foy, DO 23 weeks gestation of ([facility]); Elevated blood sugar level; Gastroesophageal reflux disease without esophagitis 02/26/2025 Bamboo flowsheet [facility] [address] [place] [address] Britt Foy DO 02/19/2025 Travel 02/11/2025 2:10 [place] [address] Britt Foy DO Second trimester ([facility]); 20 weeks gestation of ([facility]) 02/11/2025 1:00 PM [place] [address] Screening, , for anatomic survey ([facility]) from Last 3 Months Family History Relation [...] Description 05/14/2025 2:50 [place] [address] Britt Foy DO [facility] [place], [place] [id number] 07/28/2025 4:00 PM EST Office Visit DIANE [place] [facility] [address] [place] [address] Britt Foy, [address] [place] [address] Health Maintenance Due Date Last Done Comments Influenza Vaccine (#1) 2025 Goals Goal Patient Goal Type Associated Problems Recent Progress Patient-Stated? Author Reminders Care Plan OB Reminders No Open Scheduling, Background Procedures Procedure Name Priority Date/Time Associated Diagnosis Comments US OB BPP W NON-STRESS 04/30/2025 10:59 PM EDT POCT URINALYSIS DIPSTICK Routine 04/30/2025 3:19 PM EDT 32 weeks gestation of ([facility]) POCT URINALYSIS DIPSTICK Routine 04/14/2025 3:54 PM EDT Third trimester ([facility]) US OB GROWTH 04/05/2025 12:08 PM EDT ALL CBC WITH AUTO DIFF Routine 04/05/2025 10:33 AM EDT URINARY TRACT INFECTION (HTRX) Routine 04/03/2025 3:53 PM EDT POCT URINALYSIS DIPSTICK Routine 04/03/2025 3:51 PM EDT 28 weeks gestation of ([facility]) Third trimester ([facility]) POCT URINALYSIS DIPSTICK Routine 03/12/2025 4:14 PM EDT 25 weeks gestation of ([facility]) Second trimester ([facility]) POCT URINALYSIS DIPSTICK Routine 02/26/2025 4:03 PM EDT 23 weeks gestation of ([facility]) Elevated blood sugar level POCT URINALYSIS DIPSTICK Routine 02/11/2025 2:13 PM EDT Second trimester ([facility]) 20 weeks gestation of ([facility]) US OB 14+ WEEKS ANATOMY SCAN Routine 02/11/2025 1:59 PM EDT Screening, , for anatomic survey ([facility]) from Last 3 Months Results * US OB BPP W NON-STRESS (04/30/2025 10:59 PM EDT) Anatomical Region Laterality Modality Other 04/30/2025 10:5 9 PM EDT Narrative 04/30/2025 11:02 [place] [address] Ultrasound Report Signed Patient: VINNY HERRERA MR#: [id number] : 2000 Acct:[id number] Age/Sex: 24 / F ADM Date: 04/30/25 Loc: US Attending Dr: Britt Foy D.O. Ordering Physician: Britt Foy D.O. Date of Service: 04/30/25 Procedure(s): US OB BPP w non-stress Accession Number(s): [id number] cc: Britt Foy D.O.; Ynes Mistry [place] [id number] Patient Name: VINNY HERRERA MRN: [facility]:[id number] date: 2000 Sex: F Assigned Patient Location: [facility] Current Patient Location: Accession/Order Number: [id number] Exam Date: 04/30/2025 15:57 Report Date: 04/30/2025 22:59 At the request of: BRITT FOY DO Procedure: US OB BPP w non-stress Ultrasound biophysical profile INDICATION: Gestational diabetes COMPARISON: 04/05/2025 FINDINGS/IMPRESSION:: Fetus cephalic position. 02/28 score biophysical profile. heart rate 145 beats per minutes. JAMAL 12.7 cm. Impression dictated by: Chevy Moreland M.D. 04/30/2025 10:59 PM Dictation Location: [employer] Electronically authenticated by: [id number] Y Date: 04/30/2025 22:59 Dictated By: Chevy Moreland M.D. Signed By: 04/30/252301 DD/ 58 TD/TT: Director Of Psychology: Procedure Note Radiology, Radiologist, MD - 04/30/2025 [place] [address] Ultrasound Report Signed Patient: VINNY HERRERA CMR#: [id number] : 2000Acct:[id number] Age/Sex: 24 / FADM Date: 04/30/25 Loc: US Attending Dr: Britt Foy D.O. Ordering Physician: Britt Foy D.O. Date of Service: 04/30/25 Procedure(s): US OB BPP w non-stress Accession Number(s): [id number] cc: Britt Foy D.O.; Ynes Mistry CRNA The [place] [address] Patient Name: VINNY HERRERA MRN: [id number] date: 2000 Sex: F Assigned Patient Location: [facility] Current Patient Location: Accession/Order Number: [id number] Exam Date: 04/30/2025 15:57 Report Date: 04/30/2025 22:59 At the request of: BRITT FOY DO Procedure: US OB BPP w non-stress Ultrasound biophysical profile INDICATION: Gestational diabetes COMPARISON: 04/05/2025 FINDINGS/IMPRESSION:: Fetus cephalic position. 02/28 score biophysical profile. heart rate 145 beats per minutes. JAMAL 12.7 cm. Impression dictated by: Chevy Moreland M.D. 04/30/2025 10:59 PM Dictation Location: [employer] Electronically authenticated by: [id number] Y Date: 2:59 Dictated By: Chevy Moreland M.D. Signed By:04/30/258 DD/ 58 TD/TT: Director Of Psychology: Britt Foy DO [facility] Final Result [...] PM EDT Narrative 04/05/2025 12:11 PM EDT The [address] [address] Ultrasound Report Signed Patient: VINNY HERRERA MR#: [id number] : 2000 Acct:[id number] Age/Sex: 24 / F ADM Date: 04/05/25 Loc: US Attending Dr: Regina Cummins Ordering Physician: Regina Cummins Date of Service: 04/05/25 Procedure(s): US OB growth Accession Number(s): [id number] cc: Regina Cummins; Physician,Non-Staff M.D. The [address] [address] Patient Name: VINNY HERRERA MRN: [id number] date: 2000 Sex: F Assigned Patient Location: US Current Patient Location: LAB Accession/Order Number: [id number] Exam Date: 04/05/2025 10:00 Report Date: 04/05/2025 [...] Peraza M.D. 04/05/2025 12:08 PM Dictation Location: [facility] Electron[facility] authenticated by: [id number] Y Date: 04/05/2025 12:08 Dictated By: Daryn Peraza D.O. Signed By: 04/05/25 1211 DD/ 1208 TD/TT: Director Of Psychology: Procedure Note Radiology, Radiologist, - 04/05/2025 [place] [address] Ultrasound Report Signed Patient: VINNY HERRERA CMR#: [id number] : 2000Acct:[id number] Age/Sex: 24 / FADM Date: 04/05/25 Loc: US Attending Dr: Regina Cummins Ordering Physician: Regina Cummins Date of Service: 04/05/25 Procedure(s): US OB growth Accession Number(s): [id number] cc: Regina Cummins; Physician,Non-Staff Khadar The [address] [address] Patient Name: VINNY HERRERA MRN: [id number] date: 2000 Sex: F Assigned Patient Location: Current Patient Location: LAB Accession/Order Number: [id number] Exam Date: 04/05/2025 10:00 Report Date: 04/05/2025 12:08 At the request of: REGINA CUMMNIS Procedure: US OB growth Limited obstetrical ultrasound [...] Peraza M.D. 04/05/2025 12:08 PM Dictation Location: [facility] Electronically authenticated by: [id number] Y Date: 2:08 Dictated By: Daryn Peraza D.O. Signed By:04/05/25 1211 DD/ 1208 TD/TT: Director Of Psychology: Regina RUIZ [facility] Final Result * [...] AM EDT Regina RUIZ [facility] Final Result [facility] * URINARY TRACT INFECTION (HTRX) (04/03/2025 3:53 PM EDT) [facility] ACINETOBACTER BAUMANII 0 19.961 - 24.689 ppm 04/04/2025 7:51 AM EDT [facility] ACINETOBACTER BAUMANII Not Detected 19.961 - 24.689 ppm 04/04/2025 7:51 AM EDT [facility] CITROBACTER FREUNDII 0 23.000 - 32.015 ppm 04/04/2025 7:51 AM EDT [facility] CITROBACTER FREUNDII Not Detected 23.000 - 32.015 ppm 04/04/2025 7:51 AM EDT [facility] ENTEROBACTER AEROGENES, CLOACAE 0 23.000 - 32.290 ppm 04/04/2025 7:51 AM EDT [facility] ENTEROBACTER AEROGENES, CLOACAE Not Detected 23.000 - 32.290 ppm 04/04/2025 7:51 AM EDT [facility] ENTEROCOCCUS FAECALIS, FAECIUM 0 26.000 - 33.043 ppm 04/04/2025 7:51 AM EDT [facility] ENTEROCOCCUS FAECALIS, FAECIUM Not Detected 26.000 - 33.043 ppm 04/04/2025 7:51 AM EDT [facility] ESCHERICHIA COLI 0 23.000 - 28.500 ppm 04/04/2025 7:51 AM EDT [facility] ESCHERICHIA COLI Not Detected 23.000 - 28.500 ppm 04/04/2025 7:51 AM EDT [facility] KLEBSIELLA PNEUMONIAE, OXYTOCA 0 23.000 - 31.865 ppm 04/04/2025 7:51 AM EDT [facility] KLEBSIELLA PNEUMONIAE, OXYTOCA Not Detected 23.000 - 31.865 ppm 04/04/2025 7:51 AM EDT [facility] MORGANELLA MORGANII 0 19.961 - 24.689 ppm 04/04/2025 7:51 AM EDT [facility] MORGANELLA MORGANII Not Detected 19.961 - 24.689 ppm 04/04/2025 7:51 AM EDT [facility] PROTEUS MIRABILIS, VULGARIS 0 23.000 - 28.500 ppm 04/04/2025 7:51 AM EDT [facility] PROTEUS MIRABILIS, VULGARIS Not Detected 23.000 - 28.500 ppm 04/04/2025 7:51 AM EDT [facility] PSEUDOMONAS AERUGINOSA 0 23.000 - 31.801 ppm 04/04/2025 7:51 AM EDT [facility] PSEUDOMONAS AERUGINOSA Not Detected 23.000 - 31.801 ppm 04/04/2025 7:51 AM EDT [facility] STAPHYLOCOCCUS AUREUS 0 26.000 - 31.595 ppm 04/04/2025 7:51 AM EDT [facility] STAPHYLOCOCCUS AUREUS Not Detected 26.000 - 31.595 ppm 04/04/2025 7:51 AM EDT [facility] STREPTOCOCCUS AGALACTIAE (GROUP B STREP) 0 26.000 - 32.435 ppm 04/04/2025 7:51 AM EDT [facility] STREPTOCOCCUS AGALACTIAE (GROUP B STREP) Not Detected 26.000 - 32.435 ppm 04/04/2025 7:51 AM EDT [facility] AINSLEY ALBICANS, PARAPSILOSIS, TROPICALIS 0 23.000 - 30.347 ppm 04/04/2025 7:51 AM EDT [facility] AINSLEY ALBICANS, PARAPSILOSIS, TROPICALIS Not Detected 23.000 - 30.347 ppm 04/04/2025 7:51 AM EDT [facility] AINSLEY GLABRATA 0 23.000 - 31.618 ppm 04/04/2025 7:51 AM EDT [facility] AINSLEY GLABRATA Not Detected 23.000 - 31.618 ppm 04/04/2025 7:51 AM EDT [facility] AINSLEY KRUSEI 0 23.000 - 30.873 ppm 04/04/2025 7:51 AM EDT [facility] AINSLEY KRUSEI Not Detected 23.000 - 30.873 ppm 04/04/2025 7:51 AM EDT [facility] SERRATIA MARCESCENS 0 23.000 - 31.581 ppm 04/04/2025 7:51 AM EDT [facility] SERRATIA MARCESCENS Not Detected 23.000 - 31.581 ppm 04/04/2025 7:51 AM EDT [facility] STREPTOCOCCUS PYOGENES (GROUP A STREP) 0 19.961 - 24.689 ppm 04/04/2025 7:51 AM EDT [facility] STREPTOCOCCUS PYOGENES (GROUP A STREP) Not Detected 19.961 - 24.689 ppm 04/04/2025 7:51 AM EDT [facility] STAPHYLOCOCCUS EPIDERMIDIS, HAEMOLYTICUS, LUGDUNENSIS, SAPROPHYTICUS (URINA 0 19.961 - 24.689 ppm 04/04/2025 7:51 AM EDT [facility] STAPHYLOCOCCUS EPIDERMIDIS, HAEMOLYTICUS, LUGDUNENSIS, SAPROPHYTICUS (URINA Not Detected 19.961 - 24.689 ppm 04/04/2025 7:51 AM EDT [facility] STAPHYLOCOCCUS EPIDERMIDIS, HAEMOLYTICUS, LUGDUNENSIS, SAPROPHYTICUS (URINA 0 19.961 - 24.689 ppm 04/04/2025 7:51 AM EDT [facility] STAPHYLOCOCCUS EPIDERMIDIS, HAEMOLYTICUS, LUGDUNENSIS, SAPROPHYTICUS (URINA Not Detected 19.961 - 24.689 ppm 04/04/2025 7:51 AM EDT [facility] Urine 04/03/2025 3:53 PM EDT 04/04/2025 1:35 AM EDT us Regina RUIZ LAB BLOOD ORDERABLES Final Resul t [facility] [address] [address] * US OB 14+ weeks anatomy scan [...] Ron Reyes MD us Britt Foy DO [facility] [place] US PROCEDURES Final Resul t from Last 3 Months Additional Health Concerns Active Problems Noted Date Diagnosed Date OB Reminders 11/29/2024 Insurance [employer]
--- OUTSIDE RECORDS SUMMARY | 2025-05-10 12:21 | XMS_ITS | Encounter Summary ---
Author Organization [facility] Address [address] [place] [address] Care Team Providers Care Neuroscience Specialist Name Role Phone Unavailable Primary Care Provider Unavailabl e Encounter Details Date Type Department Care Team ([facility] Contact Info) Description 01/31/2023 Abstract DIANE SANTO [facility] [address] Mukul Foy DO [facility] [place] [address] Social History Tobacco Use Types Packs/Day Years [...] Date Type Department Care Team ([facility] Contact Info) Description 05/14/2025 2:50 PM EDT Routine DIANE SANTO [address] [place] [phone] Mukul Foy DO [facility] [place] [address] 07/28/2025 4:00 [place] [address] Mukul Foy, [address] [place] [address] documented as of this encounter Visit Diagnoses Not on filedocumented in this encounter
--- OUTSIDE RECORDS SUMMARY | 2025-05-10 12:21 | XMS_ITS | Clinical Summary ---
Author Organization [facility] Address [address] [place], [place] [address] Care Team Providers Care Contact Lens Lathe Operator Name Role Phone Unavailable Primary Care [...]
--- OUTSIDE RECORDS SUMMARY | 2025-05-10 12:22 | XMS_ITS | Encounter Summary ---
Author Organization [facility] Address [address] [place] [address] Care Team Providers Care Process Laboratory Specialist Name Role Phone Unavailable Primary Care Provider Unavailabl e Encounter Details Date Type Department Care Team ([facility] Contact Info) Description 12/06/2024 Abstract NOMRenzo SANTO [address] [place] [address] Sirisha Watt MA Social History Tobacco [...] Upcoming Encounters Date Type Department Care Team ([facility] Contact Info) Description 05/14/2025 2:50 PM EDT Routine DIANE SANTO [address] [place] [address] Mukul Foy DO [facility] [place], [facility]11 07/28/2025 4:00 PM EST Office Visit DIANE SANTO [facility] [place] [address] Mukul Foy, DO [address] [facility] [address] [place] [address] documented as of this encounter Goals Goal Patient Goal Type Associated Problems Recent Progress Patient-Stated? Author Reminders Care Plan OB Reminders No Open Scheduling, Background documented as of this encounter Visit Diagnoses Not on filedocumented in this encounter Additional Health Concerns Active Problems Noted Date Diagnosed Date OB Reminders 11/29/2024 documented as of this encounter
--- OUTSIDE RECORDS SUMMARY | 2025-05-10 12:22 | XMS_ITS | Encounter Summary ---
Author Organization [facility] Address [address] [place] [address] Care Team Providers Care Warehouse Examiner Name Role Phone Unavailable Primary Care Provider Unavailabl e Encounter Details Date Type Department Care Team (Late Contact Info) Description 01/08/2025 Abstract NOMRenzo SANTO [facility] [place] [address] Mukul Foy DO [facility] [place], [id number] Social History Tobacco Use Types Packs/Day Years [...] Routine DIANE SANTO [address] [place] [address] Mukul Foy DO [address] [place], [place] [id number] 07/28/2025 4:00 PM EST Office Visit DIANE [place] OBGYN [address] [place] [address] Mukul Foy DO [address] [facility] [place] [address] documented as of this encounter Goals Goal Patient Goal Type Associated Problems Recent Progress Patient-Stated? Author Reminders Care Plan OB Reminders No Open Scheduling, Background documented as of this encounter Visit Diagnoses Not on filedocumented in this encounter Additional Health Concerns Active Problems Noted Date Diagnosed Date OB Reminders 11/29/2024 documented as of this encounter
--- OUTSIDE RECORDS SUMMARY | 2025-05-10 12:22 | XMS_ITS | Encounter Summary ---
Author Organization [facility] Address [address], [address] [place] [address] Care Team Providers Care Corporate Securities Research Analyst Name Role Phone Ynes Mistry TAX COMPLIANCE REPRESENTATIVE - TECHNICAL STAFF ASSISTANT Primary Care Provide r Reason for Visit * Reason Comments Medication Refill Encounter Details Date Type Department Care Team (Late st Contact Info) Description 05/03/2021 Refill [facility] [address] [place] [address] [address] [place] [phone] Jo Ann Live APRN - [facility] [address] [place] [phone] Medication Refill Social History Tobacco Use Types [...] Description 05/14/2025 11:40 AM EDT Office Visit [facility] Primary Care [address] [place] [address] [address] [place] [address] Ynes Mistry, TAX COMPLIANCE REPRESENTATIVE - TECHNICAL STAFF ASSISTANT [address] [place] [address] Dr [address] [facility] [place] [address] 6 month f/u documented as of this encounter Visit Diagnoses Diagnosis Irregular menses Irregular menstrual cycle documented in this encounter Care Teams Corporate Securities Research Analyst Relationship Specialty Start Date End Date Ynes Mistry, TAX COMPLIANCE REPRESENTATIVE - TECHNICAL STAFF ASSISTANT [address] [place] [address] Dr [address] [place] [address] PCP - General Family Nurse Practitioner 08/02/22 documented as of this encounter
--- OUTSIDE RECORDS SUMMARY | 2025-05-10 12:22 | XMS_ITS | Clinical Summary ---
Author Organization [facility] Address [address] [place] [address] Care Team Providers Care Color Control Supervisor Name Role Phone Ynse Mistry Dalila CHEMICAL ENGINEERING TECHNICIAN Primary Care Provider [phone] Allergies No known active allergies Medications Pro [...] Type Department Care Team Description 02/25/2025 Telephone [facility] at [address] [place] [address] Cailin Ryan MA from Last [...] file Type:Not on file Address: [address] [place] [phone] Care Teams Color Control Supervisor Relationship Specialty Start Date End Date Ynes Mistry, CHEMICAL ENGINEERING TECHNICIAN [address] [place] [address] PCP - General 03/20/23
--- OUTSIDE RECORDS SUMMARY | 2025-05-10 12:22 | XMS_ITS | Encounter Summary ---
Author Organization [facility] Address [address] [place] [address] Care Team Providers Care Service Captain Name Role Phone Unavailable Primary Care Provider Unavailabl e Encounter Details Date Type Department Care Team (Late Contact Info) Description 12/23/2024 Abstract NOMRenzo SANTO [facility] [place] [phone] Mukul Foy DO [facility] [place], [place] [id number] Social History Tobacco Use Types Packs/Day Years [...] EDT Routine DIANE SANTO [address] [place] [phone] Muukl Foy DO [address] [place], [place] [phone] 07/28/2025 4:00 PM EST Office Visit [facility] [place] OBG[facility] [address] [place] [address] Mukul Foy DO [address] [facility] [place] [address] documented as of this encounter Goals Goal Patient Goal Type Associated Problems Recent Progress Patient-Stated? Author Reminders Care Plan OB Reminders No Open Scheduling, Background documented as of this encounter Visit Diagnoses Not on filedocumented in this encounter Additional Health Concerns Active Problems Noted Date Diagnosed Date OB Reminders 11/29/2024 documented as of this encounter
--- OUTSIDE RECORDS SUMMARY | 2025-05-10 12:22 | XMS_ITS | Encounter Summary ---
Author Organization [facility] Address [address] [place] [address] Care Team Providers Care Video Producer Name Role Phone Unavailable Primary Care Provider Unavailabl e Encounter Details Date Type Department Care Team ([facility] Contact Info) Description 07/31/2024 Orders Only DIANE SANTO [address] [facility] [place] [address] Suyapa Hazel LPN [address] [place] [address] Social History Tobacco Use Types Packs/Day Years [...] Care Team ([facility] Contact Info) Description 05/14/2025 2:50 PM EDT Routine NOMRenzo SANTO [address] [place] [phone] Mukul Foy DO [address] [facility] [address] [place], [place] [phone] 07/28/2025 4:00 PM EST Office Visit [facility]OMRenzo SANTO [address] [facility] [address] Mukul Foy, [address] [place] [address] [place] [address] documented as of this encounter Procedures Procedure [...]
--- OUTSIDE RECORDS SUMMARY | 2025-05-10 12:22 | XMS_ITS | Encounter Summary ---
Author Organization [facility] Address [address], [address] [place] [address] Care Team Providers Care Honey Liquefier Name Role Phone Ynes Mistry BROWNING PROCESSOR - ACREAGE REPORTER Primary Care Provide r Encounter Details Date Type Department Care Team (Late st Contact Info) Description 05/01/2025 Orders Only [facility] Primary Care [address] [place] [address] [address] [place] [phone] Provider, MD Yuval Social History Tobacco Use Types Packs/Day Years Used Date Smoking Tobacco: Never Smokeless Tobacco: Never Alcohol Use Standard Drinks/Week Comments Not Currently 0 (1 standard drink = 0.6 oz pur e alcohol) social [facility] Utilities Answer Date Recorded In the past 12 months has [employer], gas, oil, or water [employer] threatened to shut off services in your home? No 10/07/2024 Overall Financial Resource Strain (CARDIA) Answe r Date Recorded How hard is it for you to pa y for the very basics like food, housing, medical care, and heating? Not hard at all 07/13/2023 PHQ-2 Answer Date Recorded PHQ-9 Total Score 0 08/07/2024 Hunger Vital Sign Answer Date Recorded Within the past 12 months, y ou worried that your food would run out before you got the money to buy more. Never true 10/08/19 25 Within the past 12 months, t he food you bought just didn't last and you didn't have money to get more. Never true 10/07/2024 PRAPARE - Transportation Answer Date Re corded In the past 12 months, has l ack of transportation kept you from medical appointments or from getting medications? No 09/21 In the past 12 months, has l ack of transportation kept you from meetings, work, or from getting things needed for daily living? No 10/07/2024 Housing Stability Vital Sign Answer Yazan e Recorded Unable to Pay for Housing in the Last Year Not o n file 07/13/2023 Number of Places Lived in the Last Year Not on f ile 07/13/2023 In the last 12 months, was t here a time when you did not have a steady place to sleep or slept in a snf (including now)? No 07/13/2023 Housing Stability Vital Sign Answer Yazan e Recorded In the last 12 months, was t here a time when you were not able to pay the mortgage or rent on time? No 10/07/2024 In the past 12 months, how m any times have you moved where you were living? 0 10/07/2024 At any time in the past [address] [facility], were you homeless or living in a snf (including now)? No 10/07/2024 Food Insecurity Answer Date Recorded Within the past 12 months, y ou worried that your food would run out before you got the money to buy more. 1 10/07/2024 Within the past 12 months, t he food you bought just didn't last and you didn't have money to get more. 1 10/07/2024 Comments No Sex and Gender Information Value Date Recorded Sex Assigned at Female 05/20/2024 8:24 PM EDT Legal Sex Female 3:31 PM EST Gender Identity Female 05/20/2024 8:24 PM EDT Sexual Orientation Not on file documented as of this encounter Plan of Treatment Upcoming Encounters Date Type Department Care Team (Late st Contact Info) Description 05/14/2025 11:40 AM EDT Office Visit [facility] Primary Care [address] [place] [address] [address] [place] [phone] Ynes Mistry, BROWNING PROCESSOR - ACREAGE REPORTER [facility] [address] [place] [address] 6 month f/u documented as of this encounter Procedures Procedure Name Priority Date/Time Associated Diagnosis Comments BIOPHYSICAL PROFILE W/NST Routine 04/30/2025 11:39 AM EDT documented in this encounter Results * BIOPHYSICAL PROFILE W/NST (04/30/2025 11:39 AM EDT) us Historical Provider MD [facility] Final Res ult documented in this encounter Visit Diagnoses Not on filedocumented in this encounter Care Teams Honey Liquefier Relationship Specialty Start Date End Date Ynes Mistry APRN - DMITRY [address] [facility] [address] [place] [address] PCP - General Family Nurse Practitioner 08/02/22 documented as of this encounter
--- OUTSIDE RECORDS SUMMARY | 2025-05-10 12:22 | XMS_ITS | Clinical Summary ---
Author Organization [facility] Address [address], [address] [place] [address] Care Team Providers Care Interpreter And Translator Name Role Phone Ynes Mistry OB SCRUB TECH - MARIONETTE PERFORMER Primary Care Provide r Allergies No known active allergies Medications cetirizine (ZYRTEC) 10 MG tablet Take 1 tablet by mouth daily 90 tablet 3 1 Active metFORMIN (GLUCOPHAGE-XR) 500 MG extended release tabletIndication s:BMI 37.0-37.9, adult,Class 2 obesity with body mass index (BMI) of 37.0 to 37.9 in adult, unspecified obesity type, unspecified whether serious comorbidity present TAKE 2 TABLETS BY MOUTH IN THE MORNING AND AT BEDTIME 120 tablet 5 5 Active Progesterone [address] 200 mg vaginally nightly 5 Active sertraline (ZOLOFT) 25 MG tablet Take 1 tablet by mouth daily 30 tablet 5 5 Active Active Problems Problem Noted Date Diagnosed Date Gastroesophageal reflux disease 11/12/2024 Other hyperlipidemia [E78.49] 06/04/2024 Obesity 06/04/2024 Hepatic steatosis 03/06/2024 Elevated liver enzymes 03/01/2024 Mixed hyperlipidemia 02/20/2024 Iron deficiency anemia 10/25/2023 Gestational diabetes mellitu s (GDM) affecting second 07/24/2022 Anxiety 06/29/2020 Seasonal allergic rhinitis 06/29/2020 Other fatigue 05/02/2020 Resolved Problems Problem Noted Date Diagnosed Date Resolved Date Sore throat 09/10/2024 10/10/2024 Acne 10/17/2023 11/12/2024 Irregular menses 10/17/2023 02/20/2024 Frequent UTI 11/30/2020 02/20/2024 Dyspareunia in female 11/30/20202023 Insomnia due to other mental disorder 05/02/2020 02/20/2024 Encounters Date Type Department Care Team Description 05/01/2025 Orders Only [facility] Primary Care [address] [place] [address] [address] [place] [address] Provider, MD Yuval from Last 3 Months Immunizations Immunization Administration Dates Next Due COVID-19, Inactive, PFIZER P URPLE top, DILUTE for use, (age 12 y+) 12/29/2020,12/07/2020 DTaP 11/20/2003, 0,03/12/1999,01/18,1998 DTaP, INFANRIX, (age 6w-6y), IM, 0.5mL 0 11/20/2003,03/13/2000,03/12/1999,01/18,1998 HPV Quadrivalent (Gardasil) 09/20/2017, 7,02/24/2017 Hep A, HAVRIX, VAQTA, (age 1 2m-18y), IM, 0.5mL 08/19/2011,02/09/2011 Hep B, ENGERIX-B, RECOMBIVAX -HB, (age - 19y), IM, 0.5mL 06/09/1999,1998,1998 Hepatitis A Ped/Adol (Vaqta) 08/19/2011,02/10/20 11 Hib PRP-T, ACTHIB (age 2m-5y , Adlt Risk), HIBERIX (age 6w-4y, Adlt Risk), IM, 0.5mL 03/13/2000,03/12/1999,01/18/1999,11/09 MMR, PRIORIX, M-M-R II, (age 12m+), SC, 0.5mL 11/20/2003,12/22/1999 Meningococcal ACWY Vaccine 2014 Meningococcal ACWY, MENACTRA (MenACWY-D), (age 9m-55y), IM, 0.5mL 03/11/2016,01/12/2011 Poliovirus, IPOL, (age 6w+), SC/IM, 0.5mL 11/20/2003,03/13/2000,01/18/1999,11/09 TDaP, ADACEL (age 10y-64y), BOOSTRIX (age 10y+), IM, 0.5mL 06/19/2011 Varicella, VARIVAX, (age 12m +), SC, 0.5mL 02/09/2011,12/22/1999 Family History Medical History Relation Name Comments High Cholesterol Father Dad Breast Cancer Maternal Grandmother Sy Obesity Mother Mom Other Other No family h/o D [place] Breast Cancer Paternal Grandmother Ranker Diabetes Sister Viry Relation Name Status Comments Father Dad Alive Maternal Grandfather Maternal Grandmother Sy Alive Mother Mom Alive Other Other Paternal Grandfather Paternal Grandmother Ranker Alive Sister Viry Alive Social History Tobacco Use Types Packs/Day Years Used Date Smoking Tobacco: Never Smokeless Tobacco: Never Tobacco Cessation:Counseling Given: Not Answered Alcohol Use Standard Drinks/Week Comments Not Currently 0 (1 standard drink = 0.6 oz pur e alcohol) social [employer] Utilities Answer Date Recorded In the past 12 months has [employer], gas, oil, or water [employer] threatened to shut off services in your [...] place to sleep or slept in a custodial (including now)? No 07/13/2023 Housing Stability Vital Sign Answer Yazan e Recorded In the last 12 months, was t here a time when you were not able to pay the mortgage or rent on time? No 10/07/2024 In the past 12 months, how m any times have you moved where you were living? 0 10/07/2024 At any time in the past 12 m [facility], were you homeless or living in a custodial (including now)? No 10/07/2024 Food Insecurity Answer [...] PM EDT Sexual Orientation Not on file Last Filed Vital Signs Vital Sign Reading Time Taken Comments Blood Pressure 110/72 11/12/2024 11:39 AM EDT Pulse 73 11/12/2024 11:39 AM EDT Temperature 36.1 C (96.9 F) 11/12/2024 11:39 AM EDT Respiratory Rate 16 10/07/2024 1:43 PM EDT Oxygen Saturation 99% 11/12/2024 11:39 AM EDT Inhaled Oxygen Concentration - - Weight 92.1 kg (203 lb) 11/12/2024 11:39 AM EDT Height 165.1 cm (5' 5 ) 10/07/2024 1:43 PM EDT Body Mass Index 33.78 10/07/2024 1:43 PM EDT Plan of Treatment Upcoming Encounters Date Type Department Care Team (Late st Contact Info) Description 05/14/2025 11:40 AM EDT Office Visit [facility] Primary Care [address] [place] [address] Ynes Mistry, OB SCRUB TECH - MARIONETTE PERFORMER [address] [place], [place] [phone] 6 month f/u Health Maintenance Due Date Last Done Comments DTaP/Tdap/Td vaccine (7 - Td or Tdap) 06/19/2021 06/19/2011, 11/20/2003, 11/20/2003, Additional history exists Flu vaccine (#1) 02/21/2025 COVID-19 Vaccine ( season) 2025 12/29/2020, 12/07/2020 Depression Screen 08/07/2025 08/07/2024, 08/07/2024 Pap smear 07/15/2027 07/15/2024, 06/24, 07/05/2023, Additional history exists Hepatitis B vaccine Completed 06/09/1999, 1998, 1998 Hib vaccine Completed 03/13/2000, 02/22, 01/18/1999, Additional history exists Polio vaccine Completed 11/20/2003, 02/22, 01/18/1999, Additional history exists Varicella vaccine Completed 02/09/2011, 12/22/1999 Hepatitis A vaccine Completed 08/19/2011, 08/19/2011, 02/09/2011, Additional history exists Meningococcal (ACWY) vaccine Completed 03/11/2016, 2014, 01/12/2011 HPV vaccine Completed 09/20/2017, 03/2017, 02/24/2017 HIV screen Completed 05/04/2020 Chlamydia/GC screen Discontinued 11/19/2020, 03/03/2020, 02/21/2019, Additional history exists Hepatitis C screen Completed 10/18/2023 Depression Monitoring Discontinued 08/07/2024, 025 Lipids Discontinued 10/17/2024, 04/24, 02/16/2024, Additional history exists Meningococcal B vaccine Aged Out No l onger eligible based on patient's age to complete this topic Pneumococcal 0-49 years Vaccine Aged Out No longer eligible based on patient's age to complete this topic Procedures Procedure Name Priority Date/Time Associated Diagnosis Comments BIOPHYSICAL PROFILE W/NST Routine 04/30/2025 11:39 AM EDT HM PAP SMEAR Routine 07/15/2024 LIPID PANEL Routine 05/20/2024 9:59 AM EDT Mixed hyperlipidemia HEPATITIS C ANTIBODY Routine 10/18/2023 8:25 AM EDT Need for hepatitis C screening test Wellness examination C.TRACHOMATIS N.GONORRHOEAE DNA, URINE Routine 11/19/2020 1:57 PM EDT Frequent UTI HIV SCREEN Routine 05/04/2020 3:27 PM EDT Encounter for screening for HIV from Last 3 Months or Most Recently Relevant to Health Maintenance Results * BIOPHYSICAL PROFILE W/NST (04/30/2025 11:39 AM EDT) us Historical Provider MD IMAGING Final Res ult * HM PAP SMEAR (07/15/2024) PAP Smear, External neg 07/15/2024 us Historical Provider HEALTH MAINTENANCE Edited Result - Final * Hepatitis C Antibody (10/18/2023 8:25 AM EDT) Hepatitis C Ab NONREACTIVE NONREACTIVE 10/18/19 24 8:25 AM EDT [facility] Comment: The hepatitis C procedure used in [...] recommended by ordering HCV RNA by PCR. Blood BLOOD SPECIMEN / Unknown 10/18/2023 8:25 AM EDT 10/18/2023 8:26 AM EDT us Ynes Mistry OB SCRUB TECH - MARIONETTE PERFORMER IMMUNOLOGY ORDERABLES Final Result [facility] [address] [place] [address], [facility] [phone] [address], [facility] [phone] * C.trachomatis N.gonorrhoeae DNA, Urine (11/19/2020 1:57 PM EDT) Specimen Description .URINE 11/19/2020 1:57 PM EDT [facility] C. trachomatis DNA ,Urine NEGATIVE NEGATIVE 11/19/2020 1:57 PM EDT [facility] Comment: CHLAMYDIA TRACHOMATIS DNA not detected by nucleic acid amplification. This test is intended for medical purposes only and is not valid for the evaluation of suspected sexual abuse or for other forensic purposes. In certain contexts, culture may be required to meet applicable laws and regulations for diagnosis of C. trachomatis and N. gonorrhoeae infections. Per 2014 CDC recommendations, this test does not include confirmation of positive results by an alternative nucleic acid target. N. gonorrhoeae DNA, Urine NEGATIVE NEGATIVE 11/19/2020 1:57 PM EDT [facility] Comment: NEISSERIA GONORRHOEAE DNA not detected by nucleic acid amplification. This test is intended for medical purposes only and is not valid for the evaluation of suspected sexual abuse or for other forensic purposes. In certain contexts, culture may be required to meet applicable laws and regulations for diagnosis of C. trachomatis and N. gonorrhoeae infections. Per 2014 CDC recommendations, this test does not include confirmation of positive results by an alternative nucleic acid target. Urine 11/19/2020 1:57 PM EDT 11/19/2020 1:57 PM EDT Lorena Ricks OB SCRUB TECH - MARIONETTE PERFORMER MICROBIOLOGY - GENE RAL ORDERABLES Final Result Performing Organization Address City/[facility]/ZIP Co de Phone Number [facility] [address] [place] [address], [facility] [phone] [facility] [address] [place] [address], [facility] [phone] * HIV Screen (05/04/2020 3:27 PM EDT) HIV Ag/Ab NONREACTIVE NONREACTIVE 05/04/2020 3:27 PM EDT [facility] Comment: No laboratory evidence of HIV infection. If acute HIV infection is suspected, consider testing for HIV-1 RNA. BLOOD SPECIMEN / Unknown 05/04/2020 3:27 PM EDT 05/04/2020 3:28 PM EDT us Ynes Mistry OB SCRUB TECH - MARIONETTE PERFORMER IMMUNOLOGY ORDERABLES Final Result Performing Organization Address [facility]/ZIP Co de Phone Number [facility] [address] [place] [address], [facility] [phone] [place] [address], [facility] [phone] from Last 3 Months or Most Recently Relevant to Health Maintenance Insurance [employer] Care Teams Interpreter And Translator Relationship Specialty Start Date End Date Ynes Mistry, OB SCRUB TECH - MARIONETTE PERFORMER [address] [place] [address] [address] PCP - General Family Nurse Practitioner 08/02/22
--- OUTSIDE RECORDS SUMMARY | 2025-05-10 12:22 | XMS_ITS | Encounter Summary ---
Author Organization [facility] Address [address] [place] [address] Care Team Providers Care Fashion Photographer Name Role Phone Unavailable Primary Care Provider Unavailabl e Encounter Details Date Type Department Care Team (Late Contact Info) Description 12/23/2024 Abstract NOMRenzo SANTO [facility] [place] [phone] Mukul Foy DO [facility] [place], [place] [phone] Social History Tobacco Use Types Packs/Day Years [...] EDT Routine DIANE SANTO [address] [place] [phone] Mukul Foy DO [address] [place], [place] [phone] 07/28/2025 4:00 PM EST Office Visit [facility] [place] OBGYN [address] [place] [address] Mukul Foy DO [address] [facility] [place] [address] documented as of this encounter Goals Goal Patient Goal Type Associated Problems Recent Progress Patient-Stated? Author Reminders Care Plan OB Reminders No Open Scheduling, Background documented as of this encounter Visit Diagnoses Not on filedocumented in this encounter Additional Health Concerns Active Problems Noted Date Diagnosed Date OB Reminders 11/29/2024 documented as of this encounter
--- OUTSIDE RECORDS SUMMARY | 2025-05-10 12:22 | XMS_ITS | Encounter Summary ---
Author Organization [facility] Address [address] [facility], [address] [place] [address] Care Team Providers Care Senior Drafter Name Role Phone Ynes Mistry MEDICAL DOCTOR MD/MEDICAL DIRECTOR - BREAST PULLER Primary Care Provide r Encounter Details Date Type Department Care Team (Late st Contact Info) Description 05/28/2024 Orders Only [facility] Primary Care [address] [facility] [address] [place] [phone] Provider, MD Yuval Social History Tobacco Use [...] Answer Date Recorded PHQ-9 Total Score 0 08/03/2023 Hunger Vital Sign Answer Date Recorded Within the past 12 months, y ou worried that your food would run out before you got the money to buy more. Never true 07/13/20 23 Within the past 12 months, t he food you bought just didn't last and you didn't have money to get more. Never true 07/13/2023 PRAPARE - Transportation Answer Date Re corded Lack of Transportation (Medical) Not on file 07/13/2023 In the past 12 months, has l ack of transportation kept you from meetings, work, or from getting things needed for daily living? No 07/13/2023 Housing Stability Vital Sign Answer Yazan e Recorded Unable to Pay for Housing in the Last Year Not o n file 07/13/2023 Number of Places Lived in the Last Year Not on f ile 07/13/2023 In the last 12 months, was t here a time when you did not have a steady place to sleep or slept in a jail (including now)? No 07/13/2023 Food Insecurity Answer Date Recorded Within the past 12 months, y ou worried that your food would run out before you got the money to buy more. 1 07/13/2023 Within the past 12 months, t he food you bought just didn't last and you didn't have money to get more. 1 07/13/2023 Comments No Sex and Gender Information Value Date Recorded Sex Assigned at Female 05/20/2024 8:24 PM EDT Legal Sex Female 3:31 PM EST Gender Identity Female 05/20/2024 8:24 PM EDT Sexual Orientation Not on file documented as of this encounter Plan of Treatment Upcoming Encounters Date Type Department Care Team (Late st Contact Info) Description 05/14/2025 11:40 AM EDT Office Visit [facility] [address] [place] [address] [address] [place] [address] Ynes Mistry, MEDICAL DOCTOR MD/MEDICAL DIRECTOR - BREAST PULLER [address] [place] [address] [address] [place], [place] [phone] 6 month f/u documented as of this encounter Procedures Procedure Name Priority Date/Time Associated Diagnosis Comments HM PAP SMEAR Routine 07/15/2023 4:38 PM EST HM PAP SMEAR Routine 07/05/2023 2:19 PM EST documented in this encounter Results * HM PAP SMEAR (07/15/2023 4:38 PM EST) Historical Provider HEALTH MAINTENANCE Final Result * HM PAP SMEAR (07/05/2023 2:19 PM EST) us Historical Provider HEALTH MAINTENANCE Final Result documented in this encounter Visit Diagnoses Not on filedocumented in this encounter Care Teams Senior Drafter Relationship Specialty Start Date End Date Ynes Mistry, MEDICAL DOCTOR MD/MEDICAL DIRECTOR - BREAST PULLER [address] [place] [address] [place] [address] PCP - General Family Nurse Practitioner 08/02/22 documented as of this encounter
[2025-05-10 12:24] VITALS: BP 136/65; PULSE 86; TEMP 36.7
== END 2025-05-10 13:03 | disposition home or self-care (01) ==
LOC: FBCO 12:17 → FBC 12:19
PROVIDERS: PCP Nurse Practitioner Women's Health; Visit Provider Obstetrics & Gynecology
DX: O24.419 Gestational diabetes mellitus in pregnancy, unspecified control (principal); Z3A.33 33 weeks gestation of pregnancy
CPT/HCPCS: 59025

== ENCOUNTER 2025-05-12 09:44 | Observation (INO) | payer OTHER, SELFPAY ==
--- OUTSIDE RECORDS SUMMARY | 2025-04-30 15:00 | XMS_ITS | Encounter Summary ---
Author Organization [facility] Healthcare Address [address] [place] [address] Care Team Providers Care Fuel Yard Operator Name Role Phone Unavailable Primary Care Provider Unavailabl e Reason for Visit * Reason Comments Routine Visit Encounter Details Date Type Department Care Team ([facility] Contact Info) Description 04/30/2025 3:00 PM EDT Routine [facility] [address] [facility] [address] Tiffany Li, ASHWNI [address] [place] [address] Third trimester ([facility]); 32 weeks gestation of ([facility]) Social History Tobacco Use Types Packs/Day [...] Frequent UTI 11/30/2020 23 weeks gestation of ([facility]) 02/26/2025 Elevated blood sugar level 02/26/2025 Resolved Ambulatory Problems Diagnosis Date Noted Missed period 01/13/2023 Past Medical History: Diagnosis Date GDM (gestational diabetes mellitus) ([facility]) HISTORY PAST MEDICAL HISTORY SOCIAL HISTORY Past Medical History: Diagnosis Date GDM (gestational diabetes mellitus) ([facility]) Social History Tobacco Use Smoking status: [...] nursing note reviewed. Exam conducted with a binding nicker present. Vitals: Estimated body mass index is 36.7 kg/m?? as calculated from the following: Height as of 01/30/23: 5' 6 . Weight as of this encounter: 227 lb 6.4 oz. BP: 110/70 Patient's last menstrual period was 09/16/2024. ASSESSMENT & PLAN ICD-10-CM 1. Third trimester ([facility]) Z34.93 2. 32 weeks gestation of ([facility]) Z3A.32 POCT urinalysis dipstick manually resulted [...] 2:50 PM EDT Routine [facility]ANE SANTO [address] [facility] [place] [phone] Mukul Foy, DO [address] [place], [place] [phone] 07/28/2025 4:00 PM EST Office Visit DIANE SANTO [address] [facility] [place] [address] Mukul Foy, DO [address] [place] [address] documented as of this encounter Goals Goal Patient Goal Type Associated Problems Recent Progress Patient-Stated? Author Reminders Care Plan OB Reminders No Open Scheduling, Background documented as of this encounter Procedures Procedure Name Priority Date/Time Associated Diagnosis Comments POCT URINALYSIS DIPSTICK Routine 04/30/2025 3:19 PM EDT 32 weeks gestation of ([facility]) documented in this encounter Results * [...]
--- OUTSIDE RECORDS SUMMARY | 2025-05-12 09:47 | XMS_ITS | Encounter Summary ---
Author Organization [facility] Address [address] [place] [address] Care Team Providers Care Manager Home Improvement Name Role Phone Unavailable Primary Care Provider Unavailabl e Encounter Details Date Type Department Care Team (Late Contact Info) Description 12/17/2022 Clinisync Result Encounter NOMS External Department Unsolicited Mukul Foy, DO [address] [place], [id number] Social History Tobacco Use Types Packs/Day Years [...] 05/14/2025 2:50 PM EDT Routine DIANE SANTO [facility] [phone] Mukul Foy, DO [address] [place], [place] [address] 07/28/2025 4:00 PM EST Office Visit DIANE SANTO [address] [place] [address] Mukul Foy, DO [address] [place], [place] [phone] documented as of this encounter Procedures Procedure [...]
--- OUTSIDE RECORDS SUMMARY | 2025-05-12 09:48 | XMS_ITS | Encounter Summary ---
Author Organization [facility] Address [address] [place] [address] Care Team Providers Care Oil Dispatcher Name Role Phone Unavailable Primary Care Provider Unavailabl e Encounter Details Date Type Department Care Team ([facility] Contact Info) Description 01/11/2023 Abstract DIANE SANTO [facility] [place] [phone] Mukul Foy DO [facility] [place] [address] Social History Tobacco Use Types Packs/Day Years [...] Upcoming Encounters Date Type Department Care Team ([facility] Contact Info) Description 05/14/2025 2:50 PM EDT Routine DIANE SANTO [address] [place] [phone] Mukul Foy DO [facility] [place] [address] 07/28/2025 4:00 PM [place] [address] Mukul Foy, [address] [place] [address] documented as of this encounter Visit Diagnoses Not on filedocumented in this encounter
--- OUTSIDE RECORDS SUMMARY | 2025-05-12 09:48 | XMS_ITS | Encounter Summary ---
Author Organization [facility] Address [address] [place] [address] Care Team Providers Care Latent Print Examiner Name Role Phone Unavailable Primary Care Provider Unavailabl e Encounter Details Date Type Department Care Team ([facility] Contact Info) Description 01/19/2023 Abstract DIANE SANTO [facility] [place] [phone] Mukul Foy DO [facility] [place] [address] Social History Tobacco Use Types Packs/Day Years [...] Upcoming Encounters Date Type Department Care Team ([facility] Contact Info) Description 05/14/2025 2:50 PM EDT Routine DIANE SANTO [address] [place] [phone] Mukul Foy DO [facility] [place] [address] 07/28/2025 4:00 [place] [address] Mukul Foy, [address] [place] [address] documented as of this encounter Visit Diagnoses Not on filedocumented in this encounter
--- OUTSIDE RECORDS SUMMARY | 2025-05-12 09:48 | XMS_ITS | Encounter Summary ---
Author Organization [facility] Address [address] [place] [address] Care Team Providers Care Inspector Fibrous Wallboard Name Role Phone Unavailable Primary Care Provider Unavailabl e Encounter Details Date Type Department Care Team ([facility] Contact Info) Description 01/11/2023 Abstract DIANE SANTO [facility] [place] [phone] Mukul Foy DO [facility] [place] [address] Social History Tobacco Use Types Packs/Day Years [...] Upcoming Encounters Date Type Department Care Team ([facility] Contact Info) Description 05/14/2025 2:50 PM EDT Routine DIANE SANTO [address] [place] [phone] Mukul Foy DO [facility] [place] [address] 07/28/2025 4:00 [place] [address] Mukul Foy, [address] [place] [address] documented as of this encounter Visit Diagnoses Not on filedocumented in this encounter
--- OUTSIDE RECORDS SUMMARY | 2025-05-12 09:48 | XMS_ITS | Encounter Summary ---
Author Organization [facility] Address [address] [place] [address] Care Team Providers Care Superintendent Building Name Role Phone Unavailable Primary Care Provider Unavailabl e Encounter Details Date Type Department Care Team ([facility] Contact Info) Description 12/12/2022 Clinisync Result Encounter [facility] Leon Brown MD [address] [facility] [place] [id number] Social History Tobacco Use Types Packs/Day Years Used Date Smoking Tobacco: Never Assessed Comments Unknown Sex and Gender Information Value Date Recorded Sex Assigned at Not on file Legal Sex Female 11:47 PM EDT Gender Identity Not on file Sexual Orientation Not on file documented as of this encounter Plan of Treatment Upcoming Encounters Date Type Department Care Team ([facility] Contact Info) Description 05/14/2025 2:50 PM EDT Routine DIANE SANTO [address] [place] [address] Mukul Foy, DO [address] [place] [address] 07/28/2025 4:00 PM EST Office Visit DIANE SANTO [address] [place] [address] Mukul Foy, DO [address] [place], [place] [id number] documented as of this encounter Procedures Procedure [...]
--- OUTSIDE RECORDS SUMMARY | 2025-05-12 09:48 | XMS_ITS | Encounter Summary ---
Author Organization [facility] Address [address] [place] [address] Care Team Providers Care Machine Cementer Name Role Phone Unavailable Primary Care Provider Unavailabl e Encounter Details Date Type Department Care Team ([facility] Contact Info) Description 01/26/2023 Abstract NOMRenzo SANTO [address] [place] [address] [place] [phone] Regina Barton PA [address] [facility] [address] [place], [place] [address] Social History Tobacco Use Types Packs/Day Years [...] Upcoming Encounters Date Type Department Care Team ([facility] Contact Info) Description 05/14/2025 2:50 PM EDT Routine NOMRenzo SANTO [address] [facility] [place] [phone] Mukul Foy DO [address] [place] [address] [place], [place] [address] 07/28/2025 4:00 PM EST Office Visit DIANE SANTO [address] [place], [place] [address] [phone] Mukul Foy, [address] [place] [address] documented as of this encounter Visit Diagnoses Not on filedocumented in this encounter
--- OUTSIDE RECORDS SUMMARY | 2025-05-12 09:48 | XMS_ITS | Encounter Summary ---
Author Organization [facility] Address [address] [place] [address] Care Team Providers Care Hospital Corpsman Name Role Phone Unavailable Primary Care Provider Unavailabl e Encounter Details Date Type Department Care Team (Late Contact Info) Description 12/23/2022 Orders Only NOMRenzo SANTO [address] [place] [address] [place] [address] Provider, MD Yuval [address] [place] [address] Social History Tobacco Use Types Packs/Day [...] 2:50 PM EDT Routine DIANE SANTO [address] [place] [address] Mukul Foy, DO [address] [place] [address] 07/28/2025 4:00 PM EST Office Visit DIANE SANTO [address] [place] [address] Mukul Foy, DO [address] [place] [address] documented as of this encounter Procedures Procedure Name Priority Date/Time Associated Diagnosis Comments AST AND ALT Routine 12/14/2022 12:04 PM EDT documented in this encounter Results * AST AND ALT (12/14/2022 12:04 PM EDT) us Historical Provider LAB BLOOD ORDERABLES Mariam l Result documented in this encounter Visit Diagnoses Not on filedocumented in this encounter
--- OUTSIDE RECORDS SUMMARY | 2025-05-12 09:48 | XMS_ITS | Encounter Summary ---
Author Organization [facility] Address [address] [place] [address] Care Team Providers Care Senior Web Applications Developer Name Role Phone Unavailable Primary Care Provider Unavailabl e Encounter Details Date Type Department Care Team ([facility] Contact Info) Description 01/06/2023 Abstract DIANE SANTO [facility] [place] [phone] Mukul Foy DO [facility] [place] [address] Social History Tobacco Use Types Packs/Day Years [...] Encounters Date Type Department Care Team ([facility] Contact Info) Description 05/14/2025 2:50 PM EDT Routine DIANE SANTO [address] [place] [phone] Mukul Foy DO [facility] [place] [address] 07/28/2025 4:00 [place] [address] Mukul Foy, [address] [place] [address] documented as of this encounter Visit Diagnoses Not on filedocumented in this encounter
--- OUTSIDE RECORDS SUMMARY | 2025-05-12 09:48 | XMS_ITS | Encounter Summary ---
Author Organization [facility] Address [address] [place] [address] Care Team Providers Care Status Controller Name Role Phone Unavailable Primary Care Provider Unavailabl e Encounter Details Date Type Department Care Team ([facility] Contact Info) Description 01/11/2023 Abstract DIANE SANTO [facility] [place] [phone] Mukul Foy DO [facility] [place] [address] Social History Tobacco Use Types Packs/Day Years [...] Upcoming Encounters Date Type Department Care Team ([facility] Contact Info) Description 05/14/2025 2:50 PM EDT Routine DIANE SANTO [address] [place] [phone] Mukul Foy DO [facility] [place] [address] 07/28/2025 4:00 [place] [address] Mukul Foy, [address] [place] [address] documented as of this encounter Visit Diagnoses Not on filedocumented in this encounter
--- OUTSIDE RECORDS SUMMARY | 2025-05-12 09:49 | XMS_ITS | Encounter Summary ---
Author Organization [facility] Address [address] [place] [address] Care Team Providers Care Muffler Installer Name Role Phone Unavailable Primary Care Provider Unavailabl e Encounter Details Date Type Department Care Team (Late Contact Info) Description 02/28/2025 Abstract NOMRenzo SANTO [facility] [place] [address] Mukul Foy DO [facility] [place], [place] [phone] Social History Tobacco Use Types Packs/Day Years [...] Routine DIANE SANTO [address] [place] [address] Mukul Foy DO [address] [place], [place] [phone] 07/28/2025 4:00 PM EST Office Visit DIANE [place] O[facility]YN [address] [facility] [place] [address] Mukul Foy DO [address] [facility] [place] [address] documented as of this encounter Goals Goal Patient Goal Type Associated Problems Recent Progress Patient-Stated? Author Reminders Care Plan OB Reminders No Open Scheduling, Background documented as of this encounter Visit Diagnoses Not on filedocumented in this encounter Additional Health Concerns Active Problems Noted Date Diagnosed Date OB Reminders 11/29/2024 documented as of this encounter
--- OUTSIDE RECORDS SUMMARY | 2025-05-12 09:49 | XMS_ITS | Encounter Summary ---
Author Organization [facility] Address [address] [place] [place] [address] Care Team Providers Care Document Scanner Name Role Phone Unavailable Primary Care Provider Unavailabl e Encounter Details Date Type Department Care Team (Late Contact Info) Description 03/03/2025 Abstract NOMRenzo SANTO [facility] [place] [address] Mukul Foy DO [facility] [place], [facility] Social History Tobacco Use Types Packs/Day Years [...] Routine DIANE SANTO [address] [place] [address] Mukul Foy DO [address] [place], [place] [id number] 07/28/2025 4:00 PM EST Office Visit DIANE [place] OBGYN [address] [facility] [place] [address] Mukul Foy DO [address] [facility] [place] [address] documented as of this encounter Goals Goal Patient Goal Type Associated Problems Recent Progress Patient-Stated? Author Reminders Care Plan OB Reminders No Open Scheduling, Background documented as of this encounter Visit Diagnoses Not on filedocumented in this encounter Additional Health Concerns Active Problems Noted Date Diagnosed Date OB Reminders 11/29/2024 documented as of this encounter
--- OUTSIDE RECORDS SUMMARY | 2025-05-12 09:49 | XMS_ITS | Encounter Summary ---
Author Organization [facility] Address [address] [place] [place] [address] Care Team Providers Care Run Boat Operator Name Role Phone Unavailable Primary Care Provider Unavailabl e Encounter Details Date Type Department Care Team (Late Contact Info) Description 03/13/2025 Abstract NOMRenzo SANTO [facility] [place] [address] Mukul Foy DO [facility] [place], [place] [phone] Social History Tobacco Use Types Packs/Day Years [...] Routine DIANE SANTO [address] [place] [address] Mukul Foy DO [address] [place], [place] [phone] 07/28/2025 4:00 PM EST Office Visit DINAE [place] OBGYN [address] [facility] [place] [address] Mukul Foy DO [address] [facility] [place] [address] documented as of this encounter Goals Goal Patient Goal Type Associated Problems Recent Progress Patient-Stated? Author Reminders Care Plan OB Reminders No Open Scheduling, Background documented as of this encounter Visit Diagnoses Not on filedocumented in this encounter Additional Health Concerns Active Problems Noted Date Diagnosed Date OB Reminders 11/29/2024 documented as of this encounter
--- OUTSIDE RECORDS SUMMARY | 2025-05-12 09:49 | XMS_ITS | Clinical Summary ---
Author Organization [facility] Address [address] [place], [place] [phone] Care Team Providers Care Dielectric Tester Name Role Phone Unavailable Primary Care Provider [...]
--- OUTSIDE RECORDS SUMMARY | 2025-05-12 09:50 | XMS_ITS | Clinical Summary ---
Author Organization [facility] Healthcare Address [address] [place] [address] Care Team Providers Care Staking Engineer Name Role Phone Unavailable Primary Care Provider Unavailabl e Allergies No known active allergies Medications sertraline (Zoloft) 50 MG tabletIndications:A nxiety, generalized TAKE 1 TABLET BY MOUTH EVERY DAY IN THE MORNING 30 tablet 3 10/26/19 25 Active glucose blood test stripIndications:Ge stational diabetes mellitus (GDM), antepartum, gestational diabetes method of control unspecified ([facility]) Use as instructed 100 each 12 01/16/20 25 026 Active metFORMIN XR (Glucophage-XR) 500 MG 24 hr tabletIndications:S econd trimester ([facility]),20 weeks gestation of ([facility]) Take 2 tablets (1,000 mg) by mouth in the evening. Take with meals 60 tablet 5 02/12/20 25 026 Active pantoprazole (Protonix) 40 MG EC tabletIndications:2 3 weeks gestation of ([facility]),Elevated blood sugar level,Gastroesophag eal reflux [...] gestational diabetes mellitus (GDM) during , antepartum ([facility]) Inject 1 each under the [...] Additional Information Patient not taking.Reported on 04/03/2025 Active Problems Problem Noted Date Diagnosed Date 23 weeks gestation of ([facility]) 2024 Elevated blood sugar level [...] Care Team Description 05/02/2025 Abstract [facility] Her[facility] [place] [address] [place] [phone] Britt Foy DO 04/30/2025 3:00 PM EDT Routine [facility] [place] [address] [place] [address] Tiffany Li, ASHWIN Third trimester ([facility]); 32 weeks gestation of ([facility]) 04/30/2025 Clinisync Result Encounter NOMS External Department Unsolicited LawBritt, DO 04/30/2025 Bamboo flowsheet [facility] [address] [place] [address] Tiffany Li NP 04/27/2025 Travel 04/15/2025 Abstract [facility] [address] [place] [address] Britt Foy, DO 04/14/2025 3:20 PM EDT Routine [facility] [address] [place] [address] Regina Cummins PA Third trimester ([facility]); 30 weeks gestation of ([facility]) 04/14/2025 Bamboo flowsheet [facility] [address] [place] [address] Regina Cummins PA 04/14/2025 Travel 04/07/2025 Telephone [facility] [address] [place] [address] Elizabeth Ware MA 04/05/2025 Clinisync Result Encounter NOMS External Department Unsolicited Regina Cummins PA 04/05/2025 Clinisync Result Encounter NOMS External Department Unsolicited Regina Cummins PA 04/03/2025 3:30 PM EDT Routine [facility] [address] [place] [address] Regina Cummins PA 28 weeks gestation of ([facility]); Third trimester ([facility]); Dizziness; Gestational diabetes mellitus (GDM), antepartum, gestational diabetes method of control unspecified ([facility]); History of miscarriage; Anemia, unspecified type; UTI symptoms 04/03/2025 Bamboo flowsheet [facility] [address] [place] [address] Regina Cummins PA 04/02/2025 Telephone [facility] [address] [place] [address] Suyapa Hazel LPN 04/01/2025 Travel 03/13/2025 Abstract [facility] [address] [place] [address] Britt Foy, DO 03/12/2025 3:50 PM EDT Routine [facility] [address] [place] [address] Britt Foy, DO 25 weeks gestation of ([facility]); Second trimester ([facility]); Gastroesophageal reflux disease without esophagitis 03/12/2025 Bamboo flowsheet [facility] [address] [place] [address] Britt Foy, DO 03/03/2025 Abstract [facility] [address] [place] [address] Britt Foy, DO 02/28/2025 Abstract [facility] [address] [place] [address] Britt Foy, 02/26/2025 3:30 PM EDT Routine [facility] [address] [place] [address] Britt Foy, DO 23 weeks gestation of ([facility]); Elevated blood sugar level; Gastroesophageal reflux disease without esophagitis 02/26/2025 Bamboo flowsheet [facility] [address] [place] [address] Britt oFy, DO 02/19/2025 Travel 02/11/2025 2:10 PM EDT Routine [facility] [address] [place] [address] Britt Foy, DO Second trimester ([facility]); 20 weeks gestation of ([facility]) 02/11/2025 1:00 PM [place] [address] Screening, , for anatomic survey ([facility]) from Last 3 Months Family History Relation [...] 05/14/2025 2:50 [place] [address] Britt Foy, DO [address] [place] [address] 07/28/2025 4:00 PM [place] [address] Britt Foy, DO [address] [place] [address] Health Maintenance Due Date Last Done Comments Influenza Vaccine (#1) 2025 Goals Goal Patient Goal Type Associated Problems Recent Progress Patient-Stated? Author Reminders Care Plan OB Reminders No Open Scheduling, Background Procedures Procedure Name Priority Date/Time Associated Diagnosis Comments US OB BPP W NON-STRESS 04/30/2025 10:59 PM EDT POCT URINALYSIS DIPSTICK Routine 04/30/2025 3:19 PM EDT 32 weeks gestation of ([facility]) POCT URINALYSIS DIPSTICK Routine 04/14/2025 3:54 PM EDT Third trimester ([facility]) US OB GROWTH 04/05/2025 12:08 PM EDT ALL CBC WITH AUTO DIFF Routine 04/05/2025 10:33 AM EDT URINARY TRACT INFECTION (HTRX) Routine 04/03/2025 3:53 PM EDT POCT URINALYSIS DIPSTICK Routine 04/03/2025 3:51 PM EDT 28 weeks gestation of ([facility]) Third trimester ([facility]) POCT URINALYSIS DIPSTICK Routine 03/12/2025 4:14 PM EDT 25 weeks gestation of ([facility]) Second trimester ([facility]) POCT URINALYSIS DIPSTICK Routine 02/26/2025 4:03 PM EDT 23 weeks gestation of ([facility]) Elevated blood sugar level POCT URINALYSIS DIPSTICK Routine 02/11/2025 2:13 PM EDT Second trimester ([facility]) 20 weeks gestation of ([facility]) US OB 14+ WEEKS ANATOMY SCAN Routine 02/11/2025 1:59 PM EDT Screening, , for anatomic survey ([facility]) from Last 3 Months Results * US OB BPP W NON-STRESS (04/30/2025 10:59 PM EDT) Anatomical Region Laterality Modality Other 04/30/2025 10:5 9 PM EDT Narrative 04/30/2025 11:02 [place] [address] Ultrasound Report Signed Patient: VINNY HERRERA MR#: [id number] : 2000 Acct:[id number] Age/Sex: 24 / F ADM Date: 04/30/25 Loc: US Attending Dr: Britt Foy D.O. Ordering Physician: Britt Foy D.O. Date of Service: 04/30/25 Procedure(s): US OB BPP w non-stress Accession Number(s): [id number] cc: Britt Foy D.O.; Ynes Mistry [place] [address] Patient Name: VINNY HERRERA MRN: [facility]:[id number] date: 2000 Sex: F Assigned Patient Location: [facility] Current Patient Location: Accession/Order Number: [id number] Exam Date: 04/30/2025 15:57 Report Date: 04/30/2025 22:59 At the request of: BRITT FOY DO Procedure: US OB BPP w non-stress Ultrasound biophysical profile INDICATION: Gestational diabetes COMPARISON: 04/05/2025 FINDINGS/IMPRESSION:: Fetus cephalic position. 02/28 score biophysical profile. heart rate 145 beats per minutes. JAMAL 12.7 cm. Impression dictated by: Chevy Moreland M.D. 04/30/2025 10:59 PM Dictation Location: [place] [address] Electronically authenticated by: [id number] Y Date: 04/30/2025 22:59 Dictated By: Chevy Moreland M.D. Signed By: 04/30/25 230 DD/ 58 TD/TT: Pad Extractor Tender: Procedure Note Radiology, Radiologist, - 04/30/2025 The [place] [id number] Ultrasound Report Signed Patient: VINNY HERRERA CMR#: [id number] : 2000Acct:[id number] Age/Sex: 24 / FADM Date: 04/30/25 Loc: US Attending Dr: Britt Foy D.O. Ordering Physician: Britt Foy D.O. Date of Service: 04/30/25 Procedure(s): US OB BPP w non-stress Accession Number(s): [id number] cc: Britt Foy D.O.; Ynes Mistry NP The [place] [id number] Patient Name: VINNY HERRERA MRN: [facility]:[id number] date: 2000 Sex: F Assigned Patient Location: [facility] Current Patient Location: Accession/Order Number: [id number] Exam Date: 04/30/2025 15:57 Report Date: 04/30/2025 22:59 At the request of: BRITT FOY DO Procedure: US OB BPP w non-stress Ultrasound biophysical profile INDICATION: Gestational diabetes COMPARISON: 04/05/2025 FINDINGS/IMPRESSION:: Fetus cephalic position. 8/8 score biophysical profile. heart rate 145 beats per minutes. JAMAL 12.7 cm. Impression dictated by: Chevy Moreland M.D. 04/30/2025 10:59 PM Dictation Location: [place] [address] Electronically authenticated by: [id number] Y Date: 2:59 Dictated By: Chevy Moreland M.D. Signed By:04/30/252301 DD/ 58 TD/TT: Pad Extractor Tender: us rBitt Foy DO [facility] Final Result * (ABNORMAL) POCT urinalysis dipstick manually resulted (04/30/2025 3:19 PM EDT) Only the most recent of6 resultswithin the time period is included. Color, UA Yellow Clarity, UA Clear Glucose, UA Negative Negative - 1999(110) ++++ mg/dL Bilirubin, UA Negative Negative - (70) +++ mg/dL Ketones, UA Negative Negative - [...] PM EDT Narrative 04/05/2025 12:11 PM EDT [address] [address] Ultrasound Report Signed Patient: VINNY HERRERA MR#: [id number] : 2000 Acct:[id number] Age/Sex: 24 / F ADM Date: 04/05/25 Loc: US Attending Dr: Regina Cummins Ordering Physician: Regina Cummins Date of Service: 04/05/25 Procedure(s): US OB growth Accession Number(s): [id number] cc: Regina Cummins; Physician,Non-Staff M.D. [address] [address] Patient Name: VINNY HERRERA MRN: [facility]:[id number] date: 2000 Sex: F Assigned Patient Location: US Current Patient Location: LAB Accession/Order Number: [id number] Exam Date: 04/05/2025 10:00 Report Date: 04/05/2025 12:08 At the request of: REGIAN CUMMINS Procedure: US OB growth Limited obstetrical [...] Peraza M.D. 04/05/2025 12:08 PM Dictation [facility] Electronically authenticated by: [id number] Y Date: 04/05/2025 12:08 Dictated By: Daryn Peraza D.O. Signed By: 04/05/25 1211 DD/ 1208 TD/TT: Pad Extractor Tender: Procedure Note Radiology, Radiologist, MD - 04/05/2025 [place] [address] Ultrasound Report Signed Patient: VINNY HERRERA CMR#: [id number] : 2000Acct:[id number] Age/Sex: 24 / FADM Date: 04/05/25 Loc: US Attending Dr: Regina Cummins Ordering Physician: Regina Cummins Date of Service: 04/05/25 Procedure(s): US OB growth Accession Number(s): [id number] cc: Regina Cummins; Physician,Non-Staff M.Chencho [facility] [place] [id number] Patient Name: VINNY HERRERA MRN: [id number] date: 2000 Sex: F Assigned Patient Location: US Current Patient Location: LAB Accession/Order Number: [id number] Exam Date: 04/05/2025 10:00 Report Date: 04/05/2025 [...] Peraza M.D. 04/05/2025 12:08 PM Dictation Location: [employer] Electronically authenticated by: [id number] Y Date: 2:08 Dictated By: Daryn Peraza D.O. Signed By:04/05/25 1211 DD/ 1208 TD/TT: Pad Extractor Tender: Regina RUIZ [facility] Final Result * (ABNORMAL) ALL CBC WITH AUTO DIFF (04/05/2025 10:33 AM EDT) TB WBC 11.0 4.0 - 11.0 10 3/uL [...] AM EDT Regina RUIZ [facility] Final Result [facility] * URINARY TRACT INFECTION (HTRX) (04/03/2025 3:53 PM EDT) Pathologist [facility] ACINETOBACTER BAUMANII 0 19.961 - 24.689 ppm 04/04/2025 7:51 AM EDT [facility] ACINETOBACTER BAUMANII Not Detected 19.961 - 24.689 ppm 04/04/2025 7:51 AM EDT [facility] CITROBACTER FREUNDII 0 23.000 - 32.015 ppm 04/04/2025 7:51 AM EDT [facility] CITROBACTER FREUNDII Not Detected 23.000 - 32.015 ppm 04/04/2025 7:51 AM EDT [facility] ENTEROBACTER AEROGENES, CLOACAE 0 23.000 - 32.290 ppm 04/04/2025 7:51 AM EDT [facility] ENTEROBACTER AEROGENES, CLOACAE Not Detected 23.000 - 32.290 ppm 04/04/2025 7:51 AM EDT [facility] ENTEROCOCCUS FAECALIS, FAECIUM 0 26.000 - 33.043 ppm 04/04/2025 7:51 AM EDT [facility] ENTEROCOCCUS FAECALIS, FAECIUM Not Detected 26.000 - 33.043 ppm 04/04/2025 7:51 AM EDT [facility] ESCHERICHIA COLI 0 23.000 - 28.500 ppm 04/04/2025 7:51 AM EDT [facility] ESCHERICHIA COLI Not Detected 23.000 - 28.500 ppm 04/04/2025 7:51 AM EDT [facility] KLEBSIELLA PNEUMONIAE, OXYTOCA 0 23.000 - 31.865 ppm 04/04/2025 7:51 AM EDT [facility] KLEBSIELLA PNEUMONIAE, OXYTOCA Not Detected 23.000 - 31.865 ppm 04/04/2025 7:51 AM EDT [facility] MORGANELLA MORGANII 0 19.961 - 24.689 ppm 04/04/2025 7:51 AM EDT [facility] MORGANELLA MORGANII Not Detected 19.961 - 24.689 ppm 04/04/2025 7:51 AM EDT [facility] PROTEUS MIRABILIS, VULGARIS 0 23.000 - 28.500 ppm 04/04/2025 7:51 AM EDT [facility] PROTEUS MIRABILIS, VULGARIS Not Detected 23.000 - 28.500 ppm 04/04/2025 7:51 AM EDT [facility] PSEUDOMONAS AERUGINOSA 0 23.000 - 31.801 ppm 04/04/2025 7:51 AM EDT [facility] PSEUDOMONAS AERUGINOSA Not Detected 23.000 - 31.801 ppm 04/04/2025 7:51 AM EDT [facility] STAPHYLOCOCCUS AUREUS 0 26.000 - 31.595 ppm 04/04/2025 7:51 AM EDT [facility] STAPHYLOCOCCUS AUREUS Not Detected 26.000 - 31.595 ppm 04/04/2025 7:51 AM EDT [facility] STREPTOCOCCUS AGALACTIAE (GROUP B STREP) 0 26.000 - 32.435 ppm 04/04/2025 7:51 AM EDT [facility] STREPTOCOCCUS AGALACTIAE (GROUP B STREP) Not Detected 26.000 - 32.435 ppm 04/04/2025 7:51 AM EDT [facility] AINSLEY ALBICANS, PARAPSILOSIS, TROPICALIS 0 23.000 - 30.347 ppm 04/04/2025 7:51 AM EDT [facility] AINSLEY ALBICANS, PARAPSILOSIS, TROPICALIS Not Detected 23.000 - 30.347 ppm 04/04/2025 7:51 AM EDT [facility] AINSLEY GLABRATA 0 23.000 - 31.618 ppm 04/04/2025 7:51 AM EDT [facility] AINSLEY GLABRATA Not Detected 23.000 - 31.618 ppm 04/04/2025 7:51 AM EDT [facility] AINSLEY KRUSEI 0 23.000 - 30.873 ppm 04/04/2025 7:51 AM EDT [facility] AINSLEY KRUSEI Not Detected 23.000 - 30.873 ppm 04/04/2025 7:51 AM EDT [facility] SERRATIA MARCESCENS 0 23.000 - 31.581 ppm 04/04/2025 7:51 AM EDT [facility] SERRATIA MARCESCENS Not Detected 23.000 - 31.581 ppm 04/04/2025 7:51 AM EDT [facility] STREPTOCOCCUS PYOGENES (GROUP A STREP) 0 19.961 - 24.689 ppm 04/04/2025 7:51 AM EDT [facility] STREPTOCOCCUS PYOGENES (GROUP A STREP) Not Detected 19.961 - 24.689 ppm 04/04/2025 7:51 AM EDT [facility] STAPHYLOCOCCUS EPIDERMIDIS, HAEMOLYTICUS, LUGDUNENSIS, SAPROPHYTICUS (URINA 0 19.961 - 24.689 ppm 04/04/2025 7:51 AM EDT [facility] STAPHYLOCOCCUS EPIDERMIDIS, HAEMOLYTICUS, LUGDUNENSIS, SAPROPHYTICUS (URINA Not Detected 19.961 - 24.689 ppm 04/04/2025 7:51 AM EDT [facility] STAPHYLOCOCCUS EPIDERMIDIS, HAEMOLYTICUS, LUGDUNENSIS, SAPROPHYTICUS (URINA 0 19.961 - 24.689 ppm 04/04/2025 7:51 AM EDT [facility] STAPHYLOCOCCUS EPIDERMIDIS, HAEMOLYTICUS, LUGDUNENSIS, SAPROPHYTICUS (URINA Not Detected 19.961 - 24.689 ppm 04/04/2025 7:51 AM EDT [facility] Urine 04/03/2025 3:53 PM EDT 04/04/2025 1:35 AM EDT us Regina RUIZ LAB BLOOD ORDERABLES Final Resul t [facility] [address] [address] * US OB 14+ weeks anatomy scan [...] Ron Reyes MD us Britt Foy DO IMG OB US PROCEDURES Final Resul t from Last 3 Months Additional Health Concerns Active Problems Noted Date Diagnosed Date OB Reminders 11/29/2024 Insurance [employer]
--- OUTSIDE RECORDS SUMMARY | 2025-05-12 09:50 | XMS_ITS | Encounter Summary ---
Author Organization [facility] Address [address] [place] [address] Care Team Providers Care Meatcutter Name Role Phone Unavailable Primary Care Provider Unavailabl e Encounter Details Date Type Department Care Team ([facility] Contact Info) Description 10/25/2023 Abstract [facility] [address] [email or web address] [place] [phone] Carola France LPN [address] [facility] Melissa KHANNA [facility] Social History Tobacco Use Types Packs/Day [...] 2:50 PM EDT Routine DIANE SANTO [email or web address] [place] [address] Mukul Foy DO [address] [place] [address] [place] [address] 07/28/2025 4:00 PM EST Office Visit DIANE SANTO [address] [place], [place] [address] [address] Mukul Foy, [address] [place] [address] documented as of this encounter Visit Diagnoses Not on filedocumented in this encounter
--- OUTSIDE RECORDS SUMMARY | 2025-05-12 09:50 | XMS_ITS | Encounter Summary ---
Author Organization [facility] Address [address] [place] [address] Care Team Providers Care Desk Pens Assembler Name Role Phone Unavailable Primary Care Provider Unavailabl e Encounter Details Date Type Department Care Team (Late st Contact Info) Description 04/30/2025 Clinisync Result Encounter NOMS External Department Unsolicited Britt Foy DO [address] [place] [address] Social History Tobacco Use Types Packs/Day Years [...] 05/14/2025 2:50 [place] [phone] Britt Foy DO [address] [place] [address] 07/28/2025 4:00 PM EST Office Visit DIANE [place] [address] Britt Foy DO [address] [facility] [place] [address] documented as of this encounter Goals Goal [...] PM EDT Narrative 04/30/2025 11:02 [place] [address] Ultrasound Report Signed Patient: VINNY HERRERA MR#: [id number] : 2000 Acct:[id number] Age/Sex: 24 / F ADM Date: 04/30/25 Loc: US Attending Dr: Britt Foy D.O. Ordering Physician: Britt Foy D.O. Date of Service: 04/30/25 Procedure(s): US OB BPP w non-stress Accession Number(s): [id number] cc: Britt Foy D.O.; Ynes Mistry NP [address] [address] Patient Name: VINNY HERRERA MRN: [facility]:[id number] date: 2000 Sex: F Assigned Patient Location: [facility] Current Patient Location: Accession/Order Number: [id number] Exam Date: 04/30/2025 15:57 Report Date: 04/30/2025 22:59 At the request of: BRITT FOY DO Procedure: US OB BPP w non-stress Ultrasound biophysical profile INDICATION: Gestational diabetes COMPARISON: 04/05/2025 FINDINGS/IMPRESSION:: Fetus cephalic position. 02/28 score biophysical profile. heart rate 145 beats per minutes. JAMAL 12.7 cm. Impression dictated by: Chevy Moreland M.D. 04/30/2025 10:59 PM Dictation Location: [place] [address] Electronically authenticated by: [id number] Y Date: 04/30/2025 22:59 Dictated By: Chevy Moreland M.D. Signed By: 04/30/252301 DD/ 58 TD/TT: Concrete Pipe Plant Supervisor: Procedure Note Radiology, Radiologist, MD - 04/30/2025 [place] [address] Ultrasound Report Signed Patient: VINNY HERRERA CMR#: [id number] : 2000Acct:[id number] Age/Sex: 24 / FADM Date: 04/30/25 Loc: US Attending Dr: Britt Foy D.O. Ordering Physician: Britt Foy D.O. Date of Service: 04/30/25 Procedure(s): US OB BPP w non-stress Accession Number(s): [id number] cc: Britt Foy D.O.; Ynes Mistry The [place] [id number] Patient Name: VINNY HERRERA MRN: [facility]:[id number] date: 2000 Sex: F Assigned Patient Location: [facility] Current Patient Location: Accession/Order Number: [id number] Exam Date: 04/30/2025 15:57 Report Date: 04/30/2025 22:59 At the request of: BRITT FOY DO Procedure: US OB BPP w non-stress Ultrasound biophysical profile INDICATION: Gestational diabetes COMPARISON: 04/05/2025 FINDINGS/IMPRESSION:: Fetus cephalic position. 02/28 score biophysical profile. heart rate 145 beats per minutes. JAMAL 12.7 cm. Impression dictated by: Chevy Moreland M.D. 04/30/2025 10:59 PM Dictation Location: [place] [address] Electronically authenticated by: [id number] Y Date: 2:59 Dictated By: Chevy Moreland M.D. Signed By:04/30/252301 DD/ 58 TD/TT: Concrete Pipe Plant Supervisor: us Britt Foy DO [facility] Final Result documented in this encounter Visit Diagnoses Not on filedocumented in this encounter Additional Health Concerns Active Problems Noted Date Diagnosed Date OB Reminders 11/29/2024 documented as of this encounter
--- OUTSIDE RECORDS SUMMARY | 2025-05-12 09:50 | XMS_ITS | Encounter Summary ---
Author Organization [facility] Address [address] [place] [address] Care Team Providers Care Washing Machine Mechanic Name Role Phone Unavailable Primary Care Provider Unavailabl e Encounter Details Date Type Department Care Team (Late Contact Info) Description 04/30/2025 Bamboo flowsheet DIANE SANTO [address] [facility] [place] [address] Tiffany Li, VEHICLE GLASS TECHNICIAN [address] [facility] [place] [address] Social History Tobacco Use Types Packs/Day [...] 2:50 PM EDT Routine DIANE SANTO [address] [facility] [place] [address] Mukul Foy DO [address] [facility] [address] [place], [facility] 07/28/2025 4:00 PM EST Office Visit [facility] Heri OBGYN [address] [facility] [place] [place] [address] Mukul Foy DO [address] [facility] [place] [address] documented as of this encounter Goals Goal Patient Goal Type Associated Problems Recent Progress Patient-Stated? Author Reminders Care Plan OB Reminders No Open Scheduling, Background documented as of this encounter Visit Diagnoses Not on filedocumented in this encounter Additional Health Concerns Active Problems Noted Date Diagnosed Date OB Reminders 11/29/2024 documented as of this encounter
--- OUTSIDE RECORDS SUMMARY | 2025-05-12 09:50 | XMS_ITS | Encounter Summary ---
Author Organization [facility] Address [address] [place] [address] Care Team Providers Care Oceanography Teacher Name Role Phone Unavailable Primary Care Provider Unavailabl e Encounter Details Date Type Department Care Team (Late Contact Info) Description 04/15/2025 Abstract NOMRenzo SANTO [facility] [place] [phone] Mukul Foy DO [facility] [place], [place] [phone] Social History Tobacco Use Types Packs/Day Years [...] Routine DIANE SANTO [address] [place] [phone] Mukul Foy DO 102 [place], [place] [phone] 07/28/2025 4:00 PM EST Office Visit DIANE [place] OBGYN [address] [facility] [address] Mukul Foy DO [address] [facility] [place] [address] documented as of this encounter Goals Goal Patient Goal Type Associated Problems Recent Progress Patient-Stated? Author Reminders Care Plan OB Reminders No Open Scheduling, Background documented as of this encounter Visit Diagnoses Not on filedocumented in this encounter Additional Health Concerns Active Problems Noted Date Diagnosed Date OB Reminders 11/29/2024 documented as of this encounter
--- OUTSIDE RECORDS SUMMARY | 2025-05-12 09:50 | XMS_ITS | Encounter Summary ---
Author Organization [facility] Address [address] [place] [address] Care Team Providers Care Earth Auger Operator Name Role Phone Unavailable Primary Care Provider Unavailabl e Encounter Details Date Type Department Care Team (Late Contact Info) Description 05/02/2025 Abstract NOMRenzo ASNTO [facility] [place] [phone] Mukul Foy DO [facility] [place], [place] [phone] Social History Tobacco Use Types Packs/Day Years [...] Routine DIANE SANTO [address] [place] [phone] Mukul Foy DO [address] [place], [place] [phone] 07/28/2025 4:00 PM EST Office Visit DIANE [place] OBGYN [address] [facility] [place] [address] Mukul Foy DO [address] [facility] [place] [address] documented as of this encounter Goals Goal Patient Goal Type Associated Problems Recent Progress Patient-Stated? Author Reminders Care Plan OB Reminders No Open Scheduling, Background documented as of this encounter Visit Diagnoses Not on filedocumented in this encounter Additional Health Concerns Active Problems Noted Date Diagnosed Date OB Reminders 11/29/2024 documented as of this encounter
--- OUTSIDE RECORDS SUMMARY | 2025-05-12 09:50 | XMS_ITS | Encounter Summary ---
Author Organization [facility] Address [address] [place] [address] Care Team Providers Care Circuit Breaker Mechanic Name Role Phone Unavailable Primary Care Provider Unavailabl e Encounter Details Date Type Department Care Team ([facility] Contact Info) Description 02/19/2024 Orders Only NOMRenzo SANTO [address] [facility] [place] [phone] Carola France LPN 102 [facility] [place] [address] Social History Tobacco Use Types Packs/Day Years [...] 2:50 PM EDT Routine NOMRenzo SANTO [address] [facility] [place] [phone] Mukul Foy DO [address] [facility] [place] [address] 07/28/2025 4:00 PM EST Office Visit NOMRenzo SANTO [address] [place] [address] Mukul Foy, DO 102 [place] [address] documented as of this encounter Procedures Procedure [...]
--- OUTSIDE RECORDS SUMMARY | 2025-05-12 09:51 | XMS_ITS | Encounter Summary ---
Author Organization [facility] Address [address] [place] [address] Care Team Providers Care Digital Media Sales Consultant Name Role Phone Unavailable Primary Care Provider Unavailabl e Encounter Details Date Type Department Care Team ([facility] Contact Info) Description 03/21/2023 Abstract NOMRenzo SANTO [address] [facility] [place] [phone] Carola France LPN 102 [facility] [place] [address] Social History Tobacco Use Types Packs/Day Years [...] 2:50 PM EDT Routine DIANE SANTO 102 [facility] [place] [phone] Mukul Foy DO [address] [facility] [place] [address] 07/28/2025 4:00 PM EST Office Visit DIANE SANTO [address] [facility] [facility] [address] Mukul Foy, [address] [place] [address] documented as of this encounter Visit Diagnoses Not on filedocumented in this encounter
--- OUTSIDE RECORDS SUMMARY | 2025-05-12 09:51 | XMS_ITS | Encounter Summary ---
Author Organization [facility] Address [address] [place] [address] Care Team Providers Care Senior Trial Attorney Name Role Phone Unavailable Primary Care Provider Unavailabl e Encounter Details Date Type Department Care Team (Late Contact Info) Description 03/17/2023 Abstract NOMRenzo SANTO [address] [place] [phone] Elizabeth Ware [place] [address] [place] [address] Social History Tobacco Use Types Packs/Day Years [...] Care Team ([facility] Contact Info) Description 05/14/2025 2:50 PM EDT Routine DIANE SANTO [address] [place] [phone] Mukul Foy DO [address] [place], [place] [phone] 07/28/2025 4:00 PM EST Office Visit DIANE SANTO [address] [place] [phone] Mukul Foy [address] [place] [address] documented as of this encounter Visit Diagnoses Not on filedocumented in this encounter
--- OUTSIDE RECORDS SUMMARY | 2025-05-12 09:51 | XMS_ITS | Encounter Summary ---
Author Organization [facility] Address [address] [place] [address] Care Team Providers Care Seo Intern Name Role Phone Unavailable Primary Care Provider Unavailabl e Encounter Details Date Type Department Care Team ([facility] [address] Contact Info) Description 02/02/2023 Abstract DIANE SANTO [facility] [place] [phone] Mukul Foy DO [facility] [place] [address] Social History Tobacco Use Types Packs/Day Years [...] Routine DIANE SANTO [address] [place] [phone] Mukul Foy DO [facility] [place] [address] 07/28/2025 4:00 [place] [address] Mukul Foy, [address] [place] [address] documented as of this encounter Visit Diagnoses Not on filedocumented in this encounter
--- OUTSIDE RECORDS SUMMARY | 2025-05-12 09:51 | XMS_ITS | Encounter Summary ---
Author Organization [facility] Address [address] [facility], [address] [place] [address] Care Team Providers Care Bus Person Name Role Phone Ynes Mistry MAINTENANCE PARTS TECHNICIAN - WASTE HANDLING TECHNICIAN Primary Care Provide r Reason for Visit * Reason Comments Medication Refill Encounter Details Date Type Department Care Team (Late st Contact Info) Description 07/08/2021 Refill [facility] [address] [place] [address] [address] [place] [phone] Jo Ann Live APRN - [facility] [address] [facility] [address] [place] [phone] Medication Refill Social History Tobacco Use Types [...] as of this encounter Plan of Treatment Not on file documented as of this encounter Visit Diagnoses Diagnosis Irregular menses Irregular menstrual cycle documented in this encounter Care Teams Bus Person Relationship Specialty Start Date End Date Ynes Mistry, MAINTENANCE PARTS TECHNICIAN - WASTE HANDLING TECHNICIAN [address] [place] [address] Dr ERNANDEZ [address] [place] [address] PCP - General Family Nurse Practitioner 08/02/22 documented as of this encounter
--- OUTSIDE RECORDS SUMMARY | 2025-05-12 09:51 | XMS_ITS | Encounter Summary ---
Author Organization [facility] Address [address] [place] [address] Care Team Providers Care Numerical Control Nesting Operator Name Role Phone Unavailable Primary Care Provider Unavailabl e Encounter Details Date Type Department Care Team ([facility] Contact Info) Description 02/07/2023 Abstract DIANE SANTO [facility] [place] [phone] Mukul Foy DO [facility] [place] [address] Social History Tobacco Use Types Packs/Day Years [...] EDT Routine DIANE SANTO [address] [place] [phone] Mukul Foy DO [facility] [place] [address] 07/28/2025 4:00 [place] [address] Mukul Foy, [address] [place] [address] documented as of this encounter Visit Diagnoses Not on filedocumented in this encounter
--- OUTSIDE RECORDS SUMMARY | 2025-05-12 09:52 | XMS_ITS | Encounter Summary ---
Author Organization [facility] Address [address] [place] [address] Care Team Providers Care Life Skills Teacher Name Role Phone Unavailable Primary Care Provider Unavailabl e Encounter Details Date Type Department Care Team ([facility] Contact Info) Description 01/31/2023 Abstract DIANE SANTO [facility] [place] [phone] Mukul Foy DO [facility] [place] [address] Social History Tobacco Use Types Packs/Day Years [...] Upcoming Encounters Date Type Department Care Team ([facility] Contact Info) Description 05/14/2025 2:50 PM EDT Routine DIANE SANTO [address] [place] [phone] Mukul Foy DO [facility] [place] [address] 07/28/2025 4:00 [place] [address] Mukul Foy, [address] [place] [address] documented as of this encounter Visit Diagnoses Not on filedocumented in this encounter
--- OUTSIDE RECORDS SUMMARY | 2025-05-12 09:52 | XMS_ITS | Encounter Summary ---
Author Organization [facility] Address [address] [facility], [address] [place] [address] Care Team Providers Care Coupon Collection Clerk Name Role Phone Ynes Mistry KNOT CUTTER - US ADMINISTRATIVE LAW JUDGE Primary Care Provide r Encounter Details Date Type Department Care Team (Late st Contact Info) Description 05/28/2024 Orders Only [facility] Primary Care [address] [facility] [address] [place] [phone] Provider, MD Yuval Social History Tobacco Use [...] place to sleep or slept in a care home (including now)? No 07/13/2023 Food Insecurity Answer [...] on file documented as of this encounter Procedures Procedure Name Priority Date/Time Associated Diagnosis Comments HM PAP SMEAR Routine 07/15/2023 4:38 PM EST HM PAP SMEAR Routine 07/05/2023 2:19 PM EST documented in this encounter Results * HM PAP SMEAR (07/15/2023 4:38 PM EST) us Historical Provider HEALTH MAINTENANCE Final Result * HM PAP SMEAR (07/05/2023 2:19 PM EST) us Historical Provider HEALTH MAINTENANCE Final Result documented in this encounter Visit Diagnoses Not on filedocumented in this encounter Care Teams Coupon Collection Clerk Relationship Specialty Start Date End Date Ynes Mistry, KNOT CUTTER - US ADMINISTRATIVE LAW JUDGE [address] [facility] [address] [address] PCP - General Family Nurse Practitioner 08/02/22 documented as of this encounter
--- OUTSIDE RECORDS SUMMARY | 2025-05-12 09:52 | XMS_ITS | Encounter Summary ---
Author Organization [facility] Address [address] [facility] [address] [facility], [address] [place] [address] Care Team Providers Care Manager Emergency Department Name Role Phone Ynes Mistry COLD MEAT CHEF - COUNTER ATTENDANT Primary Care Provide r Reason for Visit * Reason Comments Medication Refill Encounter Details Date Type Department Care Team (Late st Contact Info) Description 05/03/2021 Refill [facility] [address] [place] [address] [address] [place] [phone] Jo Ann Live APRN - [facility] [address] [facility] [address] [place] [phone] Medication Refill Social History Tobacco Use Types [...] cycle documented in this encounter Care Teams Manager Emergency Department Relationship Specialty Start Date End Date Ynes Mistry, COLD MEAT CHEF - COUNTER ATTENDANT [address] [place] [address] Dr ERNANDEZ [address] [place] [address] PCP - General Family Nurse Practitioner 08/02/22 documented as of this encounter
--- OUTSIDE RECORDS SUMMARY | 2025-05-12 09:53 | XMS_ITS | Clinical Summary ---
Author Organization [facility] Address [address] [place] [address] Care Team Providers Care Cap Blocker Name Role Phone Ynes Mistry Dalila LOAN MANAGER Primary Care Provider Allergies No known active [...] Type Department Care Team Description 02/25/2025 Telephone [facility] [address] [place] [address] Cailin Ryan MA from Last [...] file Type:Not on file Address: [address] [place] [phone] Care Teams Cap Blocker Relationship Specialty Start Date End Date Ynes Mistry, LOAN MANAGER [address] [facility] [address] [place] [address] PCP - General 03/20/23
--- OUTSIDE RECORDS SUMMARY | 2025-05-12 09:53 | XMS_ITS | Encounter Summary ---
Author Organization [facility] Address [address] [facility], [address] [place] [address] Care Team Providers Care Building Services Technician Name Role Phone Ynes Mistry HEAD PORTER - CHLORINATION OPERATOR Primary Care Provide r Encounter Details Date Type Department Care Team (Late st Contact Info) Description 05/01/2025 Orders Only [facility] Primary Care [address] [place] [address] [address] [place] [phone] Provider, MD Yuval Social History Tobacco Use Types Packs/Day Years Used Date Smoking Tobacco: Never Smokeless Tobacco: Never Alcohol Use Standard Drinks/Week Comments Not Currently 0 (1 standard drink = 0.6 oz pur e alcohol) social [facility] Utilities Answer Date Recorded In the past 12 months has [employer], gas, oil, or water [employer] threatened to shut off services in your [...] place to sleep or slept in a fdc (including now)? No 07/13/2023 Housing Stability Vital Sign Answer Yazan e Recorded In the last 12 months, was t here a time when you were not able to pay the mortgage or rent on time? No 10/07/2024 In the past 12 months, how m any times have you moved where you were living? 0 10/07/2024 At any time in the past 12 m [facility], were you homeless or living in a fdc (including now)? No 10/07/2024 Food Insecurity Answer [...] on filedocumented in this encounter Care Teams Building Services Technician Relationship Specialty Start Date End Date Ynes Mistry, HEAD PORTER - CHLORINATION OPERATOR [address] [place] [address] [address] [place] [address] PCP - General Family Nurse Practitioner 08/02/22 documented as of this encounter
--- OUTSIDE RECORDS SUMMARY | 2025-05-12 09:53 | XMS_ITS | Encounter Summary ---
Author Organization [facility] Address [address] [place] [place] [address] Care Team Providers Care Electronic Security Specialist Name Role Phone Unavailable Primary Care Provider Unavailabl e Encounter Details Date Type Department Care Team (Late Contact Info) Description 12/23/2024 Abstract NOMRenzo SANTO [facility] [place] [address] Mukul Foy DO [facility] [place], [place] [phone] Social History Tobacco Use Types Packs/Day Years [...] Routine DIANE SANTO [address] [place] [address] Mukul Foy DO [address] [place], [place] [phone] 07/28/2025 4:00 PM EST Office Visit DIANE [place] OBGYN [address] [place] [address] Mukul Foy DO [address] [facility] [place] [address] documented as of this encounter Goals Goal Patient Goal Type Associated Problems Recent Progress Patient-Stated? Author Reminders Care Plan OB Reminders No Open Scheduling, Background documented as of this encounter Visit Diagnoses Not on filedocumented in this encounter Additional Health Concerns Active Problems Noted Date Diagnosed Date OB Reminders 11/29/2024 documented as of this encounter
--- OUTSIDE RECORDS SUMMARY | 2025-05-12 09:53 | XMS_ITS | Encounter Summary ---
Author Organization [facility] Address [address] [place] [place] [address] Care Team Providers Care Induction Machine Setter Name Role Phone Unavailable Primary Care Provider Unavailabl e Encounter Details Date Type Department Care Team (Late Contact Info) Description 01/08/2025 Abstract NOMRenzo SANTO [facility] [place] [phone] Mukul Foy DO [facility] [place], [place] [phone] Social History Tobacco Use Types Packs/Day Years [...] EDT Routine DIANE SANTO [address] [place] [address] Mukul Foy DO [address] [place], [place] [phone] 07/28/2025 4:00 PM EST Office Visit DIANE [place] OBGYN [address] [facility] [place] [address] Mukul Foy DO [address] [facility] [place] [address] documented as of this encounter Goals Goal Patient Goal Type Associated Problems Recent Progress Patient-Stated? Author Reminders Care Plan OB Reminders No Open Scheduling, Background documented as of this encounter Visit Diagnoses Not on filedocumented in this encounter Additional Health Concerns Active Problems Noted Date Diagnosed Date OB Reminders 11/29/2024 documented as of this encounter
--- OUTSIDE RECORDS SUMMARY | 2025-05-12 09:53 | XMS_ITS | Encounter Summary ---
Author Organization [facility] Address [address] [place] [place] [address] Care Team Providers Care Direct Care Specialist Name Role Phone Unavailable Primary Care Provider Unavailabl e Encounter Details Date Type Department Care Team (Late Contact Info) Description 12/23/2024 Abstract NOMRenzo SANTO [facility] [place] [phone] Mukul Foy DO [facility] [place], [place] [phone] Social History Tobacco Use Types Packs/Day Years [...] Routine DIANE SANTO [address] [place] [address] Mukul Foy DO [address] [place], [place] [phone] 07/28/2025 4:00 PM EST Office Visit DIANE [place] OBGYN [address] [facility] [place] [address] Mukul Foy DO [address] [facility] [place] [address] documented as of this encounter Goals Goal Patient Goal Type Associated Problems Recent Progress Patient-Stated? Author Reminders Care Plan OB Reminders No Open Scheduling, Background documented as of this encounter Visit Diagnoses Not on filedocumented in this encounter Additional Health Concerns Active Problems Noted Date Diagnosed Date OB Reminders 11/29/2024 documented as of this encounter
--- OUTSIDE RECORDS SUMMARY | 2025-05-12 09:53 | XMS_ITS | Encounter Summary ---
Author Organization [facility] Address [address] [place] [address] Care Team Providers Care Carousel Attendant Name Role Phone Unavailable Primary Care Provider Unavailabl e Encounter Details Date Type Department Care Team ([facility] Contact Info) Description 07/31/2024 Orders Only DIANE SANTO [address] [place] [place] [address] Suyapa Hazel LPN 102 [place] [address] Social History Tobacco Use Types Packs/Day Years [...] Upcoming Encounters Date Type Department Care Team ([facility] Contact Info) Description 05/14/2025 2:50 PM EDT Routine NOMRenzo SANTO [address] [address] Mukul Foy DO [address] [facility] [address] [place], [place] [phone] 07/28/2025 4:00 PM EST Office Visit NOMRenzo SANTO [address] [place] [address] Mukul Foy, [address] [place] [address] [place] [address] documented as of this encounter Procedures Procedure [...]
--- OUTSIDE RECORDS SUMMARY | 2025-05-12 09:53 | XMS_ITS | Encounter Summary ---
Author Organization [facility] Address [address] [place] [address] Care Team Providers Care Environmental Control Administrator Name Role Phone Unavailable Primary Care Provider Unavailabl e Encounter Details Date Type Department Care Team ([facility] Contact Info) Description 12/06/2024 Abstract NOMRenzo SANTO [address] [place] [address] Sirisha Watt MA Social History Tobacco [...] Upcoming Encounters Date Type Department Care Team ([facility] Contact Info) Description 05/14/2025 2:50 PM EDT Routine DIANE SANTO [address] [place] [address] Mukul Foy DO [facility] [place], [id number] 07/28/2025 4:00 PM EST Office Visit DIANE SANTO [facility] [place] [address] Mukul Foy, DO [address] [facility] [place] [address] documented as of this encounter Goals Goal Patient Goal Type Associated Problems Recent Progress Patient-Stated? Author Reminders Care Plan OB Reminders No Open Scheduling, Background documented as of this encounter Visit Diagnoses Not on filedocumented in this encounter Additional Health Concerns Active Problems Noted Date Diagnosed Date OB Reminders 11/29/2024 documented as of this encounter
--- OUTSIDE RECORDS SUMMARY | 2025-05-12 09:54 | XMS_ITS | Clinical Summary ---
Author Organization [facility] Address [address], [address] [place] [address] Care Team Providers Care Case Investigator Name Role Phone Ynes Mistry TECHNICIAN BIOLOGICAL HEALTH - [employer] Primary Care Provide r Allergies No known [...] Department Care Team Description 05/01/2025 Orders Only [facility] [address] [place] [address] [address] [place] [address] Provider, MD Yuval from Last 3 Months [...] = 0.6 oz pur e alcohol) social [employer] Utilities Answer Date Recorded In the past 12 months has [employer] [place], gas, oil, or water [employer] threatened to shut off services in your [...] place to sleep or slept in a [place] (including now)? No 07/13/2023 Housing Stability Vital [...] time in the past 12 m [facility], were you homeless or living in a [place] (including now)? No 10/07/2024 Food Insecurity Answer [...] 10/07/2024 1:43 PM EDT Plan of Treatment Health Maintenance Due Date [...] 03/11/2016, 2014, 01/12/2011 HPV vaccine Completed 09/20/2017, 10/0 03/2017, 02/24/2017 HIV screen Completed 05/04/2020 Chlamydia/GC [...] BIOPHYSICAL PROFILE W/NST (04/30/2025 11:39 AM EDT) Historical Provider [facility] Final Res ult * [facility] PAP SMEAR (07/15/2024) PAP Smear, External neg 07/15/2024 us Historical Provider HEALTH MAINTENANCE Edited Result - Final * Hepatitis C Antibody (10/18/2023 8:25 AM EDT) Hepatitis C Ab NONREACTIVE NONREACTIVE 10/18/19 8:25 AM EDT [facility] Comment: The hepatitis C procedure used in [...] 8:25 AM EDT 10/18/2023 8:26 AM EDT Ynes Mistry TECHNICIAN [employer]OLOGICAL HE[employer] - [employer] IMMUNOLOGY ORDERABLES Final Result [facility] [address] [place] [address], [facility] [phone] Query [place] [id number], [facility] [phone] * C.trachomatis N.gonorrhoeae DNA, Urine (11/19/2020 1:57 PM EDT) Specimen Description .URINE 11/19/2020 1:57 PM EDT [facility] C. trachomatis DNA ,Urine NEGATIVE NEGATIVE 11/19/2020 1:57 PM EDT [facility] Comment: CHLAMYDIA TRACHOMATIS DNA not detected by [...] Urine NEGATIVE NEGATIVE 11/19/2020 1:57 PM EDT [facility] Comment: NEISSERIA GONORRHOEAE DNA not detected by [...] EDT 11/19/2020 1:57 PM EDT Lorena Ricks TECHNICIAN BIOLOGICAL HEALTH - [employer] MICROBIOLOGY - GENE RAL ORDERABLES Final Result Performing Organization Address City/[facility]/ZIP Co de Phone Number [facility] [address] [place] [address], [facility] [phone] Query [facility] [address] [place] [address], [facility] [phone] * HIV Screen (05/04/2020 3:27 PM EDT) HIV Ag/Ab NONREACTIVE NONREACTIVE 05/04/2020 3:27 PM EDT [facility] Comment: No laboratory evidence of HIV infection. If acute HIV infection is suspected, consider testing for HIV-1 RNA. BLOOD SPECIMEN / Unknown 05/04/2020 3:27 PM EDT 05/04/2020 3:28 PM EDT us Ynes Mistry APRN - DMITRY IMMUNOLOGY ORDERABLES Final Result [facility] [address] [place] [address], [facility] [phone] [facility] [address] [place] [address], [facility] [phone] from Last 3 Months or Most Recently Relevant to Health Maintenance Insurance [employer] Care Teams Case Investigator Relationship Specialty Start Date End Date Ynes Mistry APRN - CNP [address] [place] [address] [address] [place] [address] PCP - General Family Nurse Practitioner 08/02/22
--- OUTSIDE RECORDS SUMMARY | 2025-05-12 09:56 | XMS_ITS | CCD ---
Author Organization [facility] CliniSyma Care Team Providers Care Devulcanizer Operator Name Role Phone Jannette Peña I Primary Care Provider [phone] Ynes Rodriguez Primary Care Provider Fede LUX nYes ANDRES Primary Care Provide r LAW, MUKUL R Admitting Unavailable LAW, MUKUL R Primary Care Unavailable LAW, MUKUL R Admitting Unavailable LWA, MUKUL R Primary Care Unavailable LAW, MUKUL R Admitting Unavailable LAW, MUKUL R Primary Care Unavailable BERTO LIVE Admitting Unavailabl e LAW, MUKUL R Primary Care Unavailable Fede METALLURGICAL LABORATORY ASSISTANT - INVESTIGATION DIVISION SERGEANT, Ynes Conner Primary Care Provide r Unavailable Primary Care Provider Unavailabl e LAW ., DR DE LA TORRE Attending Unavailable MISC, DR YAÑEZ Primary Care Unavailable MILLER, DR YELENA Henao Consulting Unavailable LAW ., [...] Primary Care Unavailable ZIEBER, DR LUIS ALFREDO Forbse Consulting Unavailable LAW ., DR DE LA [...] DR YAÑEZ Primary Care Unavailable ORALIA ., VIRIGL Admitting Unavailable LAW ., DR DE LA [...] Unavailable MISC, DR YAÑEZ Primary Care Unavailable MILLER, DR YELENA Henao Consulting Unavailable LAW ., [...] EC tablet Indications: 23 weeks gestation of ([facility]) , Elevated blood sugar level , [...] accident; Translations: [ENC EXAM [facility]] Onset: 12-12-2022 Episodic Other liver diseases [...] US OB BPP W NON-STRESS on 04-30-2025 [place] [address] Ultrasound Report Signed Patient: VINNY DOWNEY MR#: [id number] : 2000 Acct:[id number] Age/Sex: 24 / F ADM Date: 04/30/25 Loc: US Attending Dr: Mukul Foy D.O. Ordering Physician: Mukul Foy D.O. Date of Service: 04/30/25 Procedure(s): US OB BPP w non-stress Accession Number(s): [id number] cc: Mukul Foy D.O.; Ynes Rodriguez [place] [id number] Patient Name: VINNY DOWNEY MRN: [facility]:[id number] date: 2000 Sex: F Assigned Patient Location: [facility] Current Patient Location: Accession/Order Number: [id number] Exam Date: 04/30/2025 15:57 Report Date: 04/30/2025 22:59 At the request of: MUKUL FOY DO Procedure: US OB BPP w non-stress Ultrasound biophysical profile INDICATION: Gestational diabetes COMPARISON: 04/05/2025 FINDINGS/IMPRESSION: : Fetus cephalic position. 8/8 score biophysical profile. heart rate 145 beats per minutes. JAMAL 12.7 cm. Impression dictated by: Chevy Moreland M.D. 04/30/2025 10:59 PM Dictation Location: RADIO-PC-29 Electronically authenticated by: [id number] Y Date: 04/30/2025 22:59 Dictated By: Chevy Moreland M.D. Signed By: 04/30/252301 DD/ 58 TD/TT: Sports Lawyer: [facility] Radiology, Radiologist, MD - 04/30/2025 [place] [address] Ultrasound Report Signed Patient: VINNY DOWNEY MR#: [id number] : 2000 Acct:[id number] Age/Sex: 24 / F ADM Date: 04/30/25 Loc: US Attending Dr: Mukul Foy D.O. Ordering Physician: Mukul Foy D.O. Date of Service: 04/30/25 Procedure(s): US OB BPP w non-stress Accession Number(s): [id number] cc: Mukul Foy D.O.; Ynes Rodriguez QUALITY CONTROL AUDITOR [place] [address] Patient Name: VINNY DOWNEY MRN: [facility]:[id number] date: 2000 Sex: F Assigned Patient Location: [facility] Current Patient Location: Accession/Order Number: [id number] Exam Date: 04/30/2025 15:57 Report Date: 04/30/2025 22:59 At the request of: MUKUL FOY DO Procedure: US OB BPP w non-stress Ultrasound biophysical profile INDICATION: Gestational diabetes COMPARISON: 04/05/2025 FINDINGS/IMPRESSION: : Fetus cephalic position. 02/28 score biophysical profile. heart rate 145 beats per minutes. JAMAL 12.7 cm. Impression dictated by: Chevy Moreland M.D. 04/30/2025 10:59 PM Dictation Location: RADIONovalere FPPC-29 Electronically authenticated by: [id number] Y Date: 04/30/2025 22:59 Dictated By: Chevy Moreland M.D. Signed By: 04/30/25 9852 DD/ 58 TD/TT: Sports Lawyer: [facility] Radiology Study observation (narrative) [facility] US OB BPP W NON-STRESS Ordered By: Radiologist Radiology on 04-30-2025 [facility] Work Phone: Urinalysis macro (dipstick) panel (U)on 04-30-2025 Bilirubin, UA Negative Negative - 4(70) +++ mg/dL [facility] Blood, UA Negative Negative - 50 Yunior/mcL [facility] Clarity, UA Clear [facility] Color, UA Yellow [facility] Glucose, UA Negative Negative - 1999(110) ++++ mg/dL [facility] Interpretation and review of laboratory results Abnormal [facility] Ketones, UA Negative Negative - 160(16) ++++ mg/dL [facility] Leukocytes, UA 1+ Negative - 500+++ Trip/mcL [facility] Nitrite, UA Negative Negative - Positive [facility] pH, UA 6.5 5 - 9 [facility] Protein, UA Negative Negative - 1999(20) ++++ mg/dL [facility] Spec Grav, UA 1.01 1 - 1.03 [facility] Urobilinogen, UA 2.0 0.2 - 12 mg/dL [facility] Urinalysis macro (dipstick) panel (U)on 04-14-2025 Bilirubin, UA Negative Negative - 4(70) +++ mg/dL [facility] Blood, UA Negative Negative - 50 Yunior/mcL [facility] Clarity, UA Clear [facility] Color, UA Yellow [facility] Glucose, UA Negative Negative - 1999(110) ++++ mg/dL [facility] Interpretation and review of laboratory results Normal [facility] Ketones, UA Negative Negative - 160(16) ++++ mg/dL [facility] Leukocytes, UA Negative Negative - 500+++ Trip/mcL [facility] Nitrite, UA Negative Negative - Positive [facility] pH, UA 6.5 5 - 9 [facility] Protein, UA Negative Negative - 1999(20) ++++ mg/dL [facility] Spec Grav, UA 1.005 1 - 1.03 [facility] Urobilinogen, UA 0.2 0.2 - 12 mg/dL [facility] ALL CBC WITH AUTO DIFFon BASOPHILS ABSOLUTE AUTO 0 [facility] Basophils/100 WBC (Bld) 0.2 % 0.2 - 2.0 % [facility] Eosinophils/100 WBC (Bld) 1.1 % 0.9 - 7.0 % [facility] Erythrocyte distribution width (RBC) [Ratio] 12.8 % 11.0 - 15.0 % [facility] Hematocrit (Bld) [Volume fraction] 30.7 % Low 36.0 - 48.0 % [facility] Hemoglobin (Bld) [Mass/Vol] 10.3 g/dL Low 12.0 - 16.0 g/dL [facility] IMMATURE GRANULOCYTES ABS AUTO 0.04 High [facility] Immature granulocytes/100 WBC (Bld) 0.4 % 0.0 - 0.5 % [facility] Interpretation and review of laboratory results Abnormal [facility] LYMPHOCYTES ABSOLUTE AUTO 1.9 [facility] Lymphocytes/100 WBC (Bld) 17.1 % Low 20.5 - 60.0 % [facility] MCH (RBC) [Entitic mass] 29.7 pg 26.7 - 34.0 pg [facility] MCHC (RBC) [Mass/Vol] 33.6 g/dL 29.9 - 35.2 g/dL [facility] MCV (RBC) [Entitic vol] 88.5 fL 81.0 - 99.0 fL [facility] MONOCYTES ABSOLUTE AUTO 0.7 [facility] Monocytes/100 WBC (Bld) 6.5 % 1.7 - 12.0 % [facility] NEUTROPHILS ABSOLUTE AUTO 8.2 High [facility] Neutrophils/100 WBC (Bld) 74.7 % 43.0 - 75.0 % [facility] Platelet mean volume (Bld) [Entitic vol] 8.7 fL Low 9.5 - 13.5 fL [facility] TBH EO # 0.1 [facility] TBH PLT 358 [facility] RBC 3.47 Low [facility] TB WBC 11 [facility] CLINISYNC [facility] US OB GROWTHon 04-05-[address] [address] Ultrasound Report Signed Patient: VINNY DOWNEY MR#: [id number] : 2000 Acct:[id number] Age/Sex: 24 / F ADM Date: 04/05/25 Loc: US Attending Dr: Virgil Barton Ordering Physician: Virgil Barton Date of Service: 04/05/25 Procedure(s): US OB growth Accession Number(s): [id number] cc: Virgil Barton; Physician,Non-Staff Khadar [place] [address] Patient Name: VINNY DOWNEY MRN: [facility]:[id number] date: 2000 Sex: F Assigned Patient Location: US Current Patient Location: LAB Accession/Order Number: [id number] Exam Date: 04/05/2025 10:00 Report Date: 04/05/2025 [...] Peraza M.D. 04/05/2025 12:08 PM Dictation Location: [place] [address] Electronically authenticated by: [id number] Y Date: 04/05/2025 12:08 Dictated By: Daryn Peraza D.O. Signed By: 04/05/25 1211 DD/ 1208 TD/TT: Sports Lawyer: [facility] Radiology, Radiologist, MD - 04/05/2025 [place] [address] Ultrasound Report Signed Patient: VINNY DOWNEY MR#: [id number] : 2000 Acct:[id number] Age/Sex: 24 / F ADM Date: 04/05/25 Loc: US Attending Dr: Virgil Barton Ordering Physician: Virgil Barton Date of Service: 04/05/25 Procedure(s): US OB growth Accession Number(s): [id number] cc: Virgil Barton; Physician,Non-Staff Khadar [place] [id number] Patient Name: VINNY DOWNEY MRN: [facility]:[id number] date: 2000 Sex: F Assigned Patient Location: US Current Patient Location: LAB Accession/Order Number: [id number] Exam Date: 04/05/2025 10:00 Report Date: 04/05/2025 [...] Peraza M.D. 04/05/2025 12:08 PM Dictation Location: [place] Electronically authenticated by: [id number] Y Date: 04/05/2025 12:08 Dictated By: Daryn Peraza D.O. Signed By: 04/05/25 1211 DD/ 1208 TD/TT: Sports Lawyer: [facility] Radiology Study observation (narrative) [facility] OB GROWTHOrdered By: Kady ologist Radiology on 04-05-2025 [facility] Work Phone: Urinalysis macro (dipstick) panel (U)on 04-03-2025 Bilirubin, UA Negative Negative - 4(70) +++ mg/dL [facility] Blood, UA Negative Negative - 50 Yunior/mcL [facility] Clarity, UA Clear [facility] Color, UA Yellow [facility] Glucose, UA Negative Negative - 2000(110) ++++ mg/dL [facility] Interpretation and review of laboratory results Abnormal [facility] Ketones, UA Negative Negative - 160(16) ++++ mg/dL [facility] Leukocytes, UA Positive Negative - 500+++ Trip/mcL [facility] Nitrite, UA Negative Negative - Positive [facility] pH, UA 6.5 5 - 9 [facility] Protein, UA Negative Negative - 1999(20) ++++ mg/dL [facility] Spec Grav, UA 1.01 1 - 1.03 [facility] Urobilinogen, UA 1.0 0.2 - 12 mg/dL [facility] Urinalysis macro (dipstick) panel (U)on 03-12-2025 Bilirubin, UA Negative Negative - 4(70) +++ mg/dL [facility] Blood, UA Negative Negative - 50 Yunior/mcL [facility] Clarity, UA Clear [facility] Color, UA Yellow [facility] Glucose, UA Negative Negative - 1999(110) ++++ mg/dL [facility] Interpretation and review of laboratory results Normal [facility] Ketones, UA Negative Negative - 160(16) ++++ mg/dL [facility] Leukocytes, UA Negative Negative - 500+++ Trip/mcL [facility] Nitrite, UA Negative Negative - Positive [facility] pH, UA 6.5 5 - 9 [facility] Protein, UA Negative Negative - 1999(20) ++++ mg/dL [facility] Spec Grav, UA 1.01 1 - 1.03 [facility] Urobilinogen, UA 1.0 0.2 - 12 mg/dL [facility] Urinalysis macro (dipstick) panel (U)on 02-26-2025 Bilirubin, UA Negative Negative - 4(70) +++ mg/dL [facility] Blood, UA Negative Negative - 50 Yunior/mcL [facility] Clarity, UA Clear [facility] Color, UA Yellow [facility] Glucose, UA Negative Negative - 1999(110) ++++ mg/dL [facility] Interpretation and review of laboratory results Normal [facility] Ketones, UA Negative Negative - 160(16) ++++ mg/dL [facility] Leukocytes, UA Negative Negative - 500+++ Trip/mcL [facility] Nitrite, UA Negative Negative - Positive [facility] pH, UA 6 5 - 9 [facility] Protein, UA Negative Negative - 1999(20) ++++ mg/dL [facility] Spec Grav, UA 1.01 1 - 1.03 [facility] Urobilinogen, UA 0.2 0.2 - 12 mg/dL [facility] US OB 14+ WEEKS ANATOMY SCAN [...] UA Negative Negative - 4(70) +++ mg/dL [facility] Blood, UA Negative Negative - 50 Yunior/mcL [facility] Clarity, UA Clear [facility] Color, UA Yellow [facility] Glucose, UA Negative Negative - 1999(110) ++++ mg/dL [facility] Interpretation and review of laboratory results Normal [facility] Ketones, UA Negative Negative - 160(16) ++++ mg/dL [facility] Leukocytes, UA Negative Negative - 500+++ Trip/mcL [facility] Nitrite, UA Negative Negative - Positive [facility] pH, UA 6.5 5 - 9 [facility] Protein, UA Negative Negative - 1999(20) ++++ mg/dL [facility] Spec Grav, UA 1.025 1 - 1.03 [facility] Urobilinogen, UA 1.0 0.2 - 12 mg/dL [facility] RECURRENT VAGINITIS (HTRX)on 01-17-2025 ATOPOBIUM VAGINAE 0 [facility] ATOPOBIUM VAGINAE Not detected [facility] BVAB 2,3 (BACTERIAL VAGINOSIS ASSOCIATED BACTERIA 2, 3); MOBILUNCUS SPP 0 [facility] BVAB 2,3 (BACTERIAL VAGINOSIS ASSOCIATED BACTERIA 2, 3); MOBILUNCUS SPP Not detected [facility] AINSLEY ALBICANS, PARAPSILOSIS, TROPICALIS 0 [facility] AINSLEY ALBICANS, PARAPSILOSIS, TROPICALIS Not detected [facility] AINSLEY GLABRATA 0 [facility] AINSLEY GLABRATA Not detected [facility] AINSLEY KRUSEI 0 [facility] AINSLEY KRUSEI Not detected [facility] CHLAMYDIA TRACHOMATIS 0 [facility] CHLAMYDIA TRACHOMATIS Not detected [facility] GARDNERELLA VAGINALIS 0 [facility] GARDNERELLA VAGINALIS Not detected [facility] MEGASPHAERA (TYPES 1, 2) 0 [facility] MEGASPHAERA (TYPES 1, 2) Not detected [facility] MYCOPLASMA GENITALIUM 0 [facility] MYCOPLASMA GENITALIUM Not detected [facility] NEISSERIA GONORRHOEAE 0 [facility] NEISSERIA GONORRHOEAE Not detected [facility] TRICHOMONAS VAGINALIS 0 [facility] TRICHOMONAS VAGINALIS Not detected [facility] CBCon 01-07-2025 Erythrocyte distribution width (RBC) [Ratio] 12.6 % 11.8 - 14.4 % [facility] Hematocrit (Bld) [Volume fraction] 35.4 % Low 36.3 - 47.1 % [facility] Hemoglobin (Bld) [Mass/Vol] 11.7 g/dL Low 11.9 - 15.1 g/dL [facility] Interpretation and review of laboratory results Abnormal [facility] MCH (RBC) [Entitic mass] 30 pg 25.2 - 33.5 pg [facility] MCHC (RBC) [Mass/Vol] 33.1 g/dL 28.4 - 34.8 g/dL [facility] MCV (RBC) [Entitic vol] 90.8 fL 82.6 - 102.9 fL [facility] Nucleated RBC/100 WBC (Bld) [Ratio] 0 % 0.0 per 100 WBC [facility] Platelet mean volume (Bld) [Entitic vol] 8.7 fL 8.1 - 13.5 fL [facility] Platelets (Bld) [#/Vol] 316 10*3/uL [facility] RBC (Bld) [#/Vol] 3.9 10*6/uL Low 3.95 - 5.1 1 m/uL [facility] WBC other (Bld) [#/Vol] 10.2 [facility] Erythrocyte distribution width (RBC) [Ratio] 12.6 % Normal 11.8-14.4 [facility] Comment on above: Performed By: #### G LUSILVINO, CBC #### [address] [place] [address] Reservations And Ticketing Agent: Yelena Greco MD Hematocrit (Bld) [Volume fraction] 35.4 % Low 36.3-47.1 [facility] Comment on above: Performed By: #### G LUSC, CBC #### [address] [place] [address] Reservations And Ticketing Agent: Yelena Greco MD Hemoglobin (Bld) [Mass/Vol] 11.7 g/dL Low 11.9-15.1 [facility] Comment on above: Performed By: #### G LUSC, CBC #### [address] [place] [address] Reservations And Ticketing Agent: Yelena Greco MD MCH (RBC) [Entitic mass] 30.0 pg Normal 25.2-33.5 [facility] Comment on above: Performed By: #### G LUSC, CBC #### [address] [place] [address] Reservations And Ticketing Agent: Yelena Greco MD MCHC (RBC) [Mass/Vol] 33.1 g/dL Normal 28.4-34.8 [facility] Comment on above: Performed By: #### G LUSC, CBC #### [address] [place], [place] [id number] Reservations And Ticketing Agent: Yelena Greco MD MCV (RBC) [Entitic vol] 90.8 fL Normal 82.6-102.9 [facility] Comment on above: Performed By: #### G LUSC, CBC #### [address] [place], [place] [id number] Reservations And Ticketing Agent: Yelena Greco MD NRBC Automated 0.0 per 100 WBC Normal 0.0 [facility] Comment on above: Performed By: #### G JANAE, CBC #### [address] [place], [place] [id number] Reservations And Ticketing Agent: Yelena Greco MD Platelet mean volume (Bld) [Entitic vol] 8.7 fL Normal 8.1-13.5 [facility] Comment on above: Performed By: #### G JANAE, CBC #### [address] [place], [place] [id number] Reservations And Ticketing Agent: Yelena Greco MD Platelets (Bld) [#/Vol] 316 10*3/uL Normal 138-453 [facility] Comment on above: Performed By: #### G JANAE, CBC #### [address] [place], [place] [id number] Reservations And Ticketing Agent: Yelena Greco MD RBC (Bld) [#/Vol] 3.90 10*6/uL Low 3.95-5.11 [facility] Comment on above: Performed By: #### G JANAE, CBC #### [address] [place], [place] [id number] Reservations And Ticketing Agent: Yelena Greco MD WBC (Bld) [#/Vol] 10.2 10*3/uL Normal 3.5-11.3 [facility] Comment on above: Performed By: #### G JANAE, CBC #### [address] [place] [place] [address] Reservations And Ticketing Agent: Yelena Greco MD Glucose Challenge Gestationa harlan 01-07-2025 GLU ADMN Glucola [facility] Glucose 1 Hr post 50 g glucose PO [Mass/Vol] 184 mg/dL High 70 - 135 mg/dL [facility] Interpretation and review of laboratory results Abnormal [facility] Glucose Toya Scr 50gon 2024 Glucose [Mass/Vol] 184 mg/dL High 70-135 [facility] Comment on above: Performed By: #### G LUSC, CBC #### [facility] [address] [place] [id number] Reservations And Ticketing Agent: Yelena Greco MD Glu Administered via Glucola Normal [facility] Comment on above: Performed By: #### G LUSC, CBC #### [facility] [address] [place] [id number] Reservations And Ticketing Agent: Yelena Greco MD US OB LESS THAN [...] by: Noah Rivero MD 12/23/24 Final result [facility] Radiology, Radiologist, - 12/23/2024 [...] by: Noah Rivero MD 12/23/24 Final result [facility] Radiology Study observation (narrative) [facility] US OB LESS THAN 14 WEEKS SIN GLE OR FIRST GESTATIONOrdered By: Radiologist Radiology on 12-23-2024 [facility] Work Phone: US OB LESS THAN [...] Noah Rivero MD 12/23/24 Final result Normal [facility] Urinalysis macro (dipstick) panel (U)on 12-18-2024 Bilirubin, UA Negative Negative - 4(70) +++ mg/dL [facility] Blood, UA Positive Negative - 50 Uynior/mcL [facility] Clarity, UA Clear [facility] Color, UA Yellow [facility] Glucose, UA Negative Negative - 1999(110) ++++ mg/dL [facility] Interpretation and review of laboratory results Abnormal [facility] Ketones, UA Negative Negative - 160(16) ++++ mg/dL [facility] Leukocytes, UA Negative Negative - 500+++ Trip/mcL [facility] Nitrite, UA Negative Negative - Positive [facility] pH, UA 7 5 - 9 [facility] Protein, UA Negative Negative - 1999(20) ++++ mg/dL [facility] Spec Grav, UA 1.01 1 - 1.03 [facility] Urobilinogen, UA 1.0 0.2 - 12 mg/dL [facility] HCG ( test) Ql (U)o n 11-14-2024 Interpretation and review of laboratory results Abnormal [facility] Preg Test, Ur Positive Negative [facility] US OB TRANSVAGINALon 025 US OB [...] MD, PHD at 15-Nov-2024 09:44:32 AM [facility] Normal Not Available Comment on above: Order Comment: US OB TRANSVAGINAL No LMP recorded. Urinalysis macro (dipstick) panel (U)on 11-14-2024 Bilirubin, UA Negative Negative - 4(70) +++ mg/dL [facility] Blood, UA Negative Negative - 50 Yunior/mcL [facility] Clarity, UA Clear [facility] Color, UA Yellow [facility] Glucose, UA Negative Negative - 1999(110) ++++ mg/dL [facility] [facility] Interpretation and review of laboratory results Normal [facility] Ketones, UA Negative Negative - 160(16) ++++ mg/dL [facility] Leukocytes, UA Negative Negative - 500+++ Trip/mcL [facility] Nitrite, UA Negative Negative - Positive [facility] pH, UA 6.5 5 - 9 [facility] Protein, UA Negative Negative - 1999(20) ++++ mg/dL [facility] Spec Grav, UA 1.005 1 - 1.03 [facility] Urobilinogen, UA 0.2 0.2 - 12 mg/dL [facility] IGP,APTIMA HPV,AGE GDLNon AGE GDLN ACOG TESTING Note . [facility] Comment on above: TESTS RESULT FLAG U NITS REF RANGE LAB Clinician Provided Cytology Information Source.............Cervix;Endocervix No. of containers..01 ThinPrep Vial Age Algo ACOG Addie... FLAG LEGEND: L-Low Normal,H-High Normal,LL-Alert Low,HH-Alert High <-Panic Low,>-Panic High,A-Abnormal,AA-Critical Abnormal Performed at: 01 =G [facility] [place] [address] Anastasiya Moses MD, IGP, RFX APTIMA HPV ASCU Note . [facility] Comment on above: TESTS RESULT FLAG UN ITS REF RANGE LAB DIAGNOSIS: 02 NEGATIVE FOR INTRAEPITHELIAL LESION OR MALIGNANCY. Specimen adequacy: 02 Satisfactory for evaluation. Endocervical and/or squamous metaplastic cells (endocervical component) are present. Performed by: 02 Maico Galaviz, Art Handler ([facility]) . 02 Note: Note 02 The [...] <-Panic Low,>-Panic High,A-Abnormal,AA-Critical Abnormal Performed at: [address] [place] [address] Anastasiya Moses MD, Performed at: = - [facility], [place] [id number] Reservations And Ticketing Agent: Anastasiya Moses MD, Phone: [phone] Performed at: [place] [address] [place] [id number] Reservations And Ticketing Agent: Anastasiya Moses MD, Phone: [phone] BRUSH-SPATULA CERVIX ENDOCERVIX [facility] Comp Metabolic Profon 2023 Albumin [Mass/Vol] 4.6 g/dL Normal 3.5-5.2 [facility] Comment on above: Performed By: #### C P #### [facility] [address] [place], [place] [id number] Reservations And Ticketing Agent: Yelena Greco MD Albumin/Glob Ratio 1.5 Normal 1.0-2.5 [facility] Comment on above: Performed By: #### C P #### [facility] [address] [place], [place] [id number] Reservations And Ticketing Agent: Yelena Greco MD Alkaline Phos 71 U/L Normal 35-104 [facility] Comment on above: Performed By: #### C P #### [facility] [address] [place], [place] [phone] Reservations And Ticketing Agent: Yelena Gerco MD ALT [Catalytic activity/Vol] 41 U/L High 10-35 [facility] Comment on above: Performed By: #### C P #### [facility] [address] [place] [address] Reservations And Ticketing Agent: Yelena Greco MD Anion gap [Moles/Vol] 10 mmol/L Normal 9-16 [facility] Comment on above: Performed By: #### C P #### [facility] [address] [place], [place] [id number] Reservations And Ticketing Agent: Yelena Greco MD AST [Catalytic activity/Vol] 34 U/L Normal 10-35 [facility] Comment on above: Performed By: #### C P #### [facility] [address] [place], [place] [address]83 Reservations And Ticketing Agent: Yelena Greco MD Bilirubin [Mass/Vol] 0.4 mg/dL Normal 0.00-1.20 [facility] Comment on above: Performed By: #### C P #### [facility] [address] [place], [place] [id number] Reservations And Ticketing Agent: Yelena Greco MD BUN/CRE Ratio 22 High 9-20 [facility] Comment on above: Performed By: #### C P #### [facility] [address] [place], [place] [phone] Reservations And Ticketing Agent: Yelena Greco MD Calcium [Mass/Vol] 9.4 mg/dL Normal 8.6-10.4 [facility] Comment on above: Performed By: #### C P #### [facility] [address] [place], [place] [phone] Reservations And Ticketing Agent: Yelena Greco MD Chloride [Moles/Vol] 103 mmol/L Normal 98-107 [facility] Comment on above: Performed By: #### C P #### [facility] [address] [place], [place] [phone] Reservations And Ticketing Agent: Yelena Greco MD CO2 [Moles/Vol] 25 mmol/L Normal 20-31 [facility] Comment on above: Performed By: #### C P #### [facility] [address] [place] [id number] Reservations And Ticketing Agent: Yelena Greco MD Creatinine [Mass/Vol] 0.6 mg/dL Normal 0.50-0.90 [facility] Comment on above: Performed By: #### C P #### [facility] [address] [place], [place] [phone] Reservations And Ticketing Agent: Yelena Greco MD GFR/1.73 sq M.predicted among non-blacks MDRD (S/P/Bld) [Vol rate/Area] mL/min/{1.73_m2} Normal >60 [facility] Comment on above: Result Comment: These [...] secretion. Performed By: #### C P #### [facility] [address] [place] [address] Reservations And Ticketing Agent: Yelena Greco MD Glucose [Mass/Vol] 83 mg/dL Normal 74-99 [facility] Comment on above: Performed By: #### C P #### [facility] [address] [place], [place] [phone] Reservations And Ticketing Agent: Yelena Greco MD Potassium [Moles/Vol] 4.6 mmol/L Normal 3.7-5.3 [facility] Comment on above: Performed By: #### C P #### [facility] [address] [place], [place] [phone] Reservations And Ticketing Agent: Yelena Greco MD Protein [Mass/Vol] 7.8 g/dL Normal 6.6-8.7 [facility] Comment on above: Performed By: #### C P #### [facility] [address] [place] [address] [place], [place] [id number] Reservations And Ticketing Agent: Yelena Greco MD Sodium [Moles/Vol] 138 mmol/L Normal 136-145 [facility] Comment on above: Performed By: #### C P #### [facility] [address] [place], [place] [phone] Reservations And Ticketing Agent: Yelena Greco MD Urea nitrogen [Mass/Vol] 13 mg/dL Normal 6-20 [facility] Comment on above: Performed By: #### C P #### [facility] [address] [place] [address] Reservations And Ticketing Agent: Yelena Greco MD [facility] Metabolic Radha claros 05-20-2024 Albumin [Mass/Vol] 4.6 g/dL 3.5 - 5.2 g/dL [facility] Albumin/Globulin [Mass ratio] 1.5 {ratio} 1.0 - 2.5 [facility] ALP [Catalytic activity/Vol] 71 U/L 35 - 104 U/L [facility] ALT [Catalytic activity/Vol] 41 U/L High 10 - 35 U/L [facility] Anion gap [Moles/Vol] 10 mmol/L 9 - 16 mmol/L [facility] AST [Catalytic activity/Vol] 34 U/L 10 - 35 U/L [facility] Bilirubin [Mass/Vol] 0.4 mg/dL 0.00 - 1.20 mg/dL [facility] Calcium [Mass/Vol] 9.4 mg/dL 8.6 - 10. 4 mg/dL [facility] Chloride [Moles/Vol] 103 mmol/L 98 - 107 mmol/L [facility] CO2 [Moles/Vol] 25 mmol/L 20 - 31 mmol/L [facility] Creatinine [Mass/Vol] 0.6 mg/dL 0.50 - 0.90 mg/dL [facility] Est, Cynthia Buttt Rate - PINF [facility] Comment on above: These results are [...] [Mass/Vol] 83 mg/dL 74 - 99 mg/dL [facility] Interpretation and review of laboratory results Abnormal [facility] Potassium [Moles/Vol] 4.6 mmol/L 3.7 - 5.3 mmol/L [facility] Protein [Mass/Vol] 7.8 g/dL 6.6 - 8.7 g/dL [facility] Sodium [Moles/Vol] 138 mmol/L 136 - 145 mmol/L [facility] Urea nitrogen [Mass/Vol] 13 mg/dL 6 - 20 mg/dL [facility] Urea nitrogen/Creatinine [Mass ratio] 22 mg/mg High 9 - 20 [facility] Lipid Panelon 05-20-2024 Cholesterol [Mass/Vol] 152 mg/dL 0 - 199 mg/dL [facility] Comment on above: Cholesterol Guidelines: <200 Desirable 200-240 Borderline >240 Undesirable Cholesterol in HDL [Mass/Vol] 33 mg/dL Low 40 - PINF mg/dL [facility] Comment on above: HDL Guidelines: <40 Undesirable 40-59 Borderline >59 Desirable Cholesterol in LDL [Mass/Vol] 88 mg/dL 0 - 100 mg/dL [facility] Comment on above: LDL Guidelines: <100 Desirable 100-129 Near to/above Desirable 130-159 Borderline >159 Undesirable Direct (measured) LDL and calculated LDL are not interchangeable tests. Cholesterol in VLDL [Mass/Vol] 31 mg/dL [facility] Cholesterol.total/Ch olesterol in HDL [Mass ratio] 5.0 {ratio} [facility] Interpretation and review of laboratory results Abnormal [facility] Triglyceride [Mass/Vol] 156 mg/dL High NINF - 150 mg/dL [facility] Comment on above: Triglyceride Guidelines: <150 Desirable 150-199 Borderline 200-499 High >499 Very high Based on AHA Guidelines for fasting triglyceride, April 2012. [facility] Lipid Profileon 05-20-2024 Cholesterol [Mass/Vol] 152 mg/dL Normal 0-199 [facility] Comment on above: Result Comment: Cholesterol Guidelines: <200 Desirable 200-240 Borderline >240 Undesirable Performed By: #### L IPR #### [facility] [address] [place], [place] [phone] Reservations And Ticketing Agent: Osvaldo Santamaria MD Cholesterol in HDL [Mass/Vol] 33 mg/dL Low >40 [facility] Comment on above: Result Comment: HDL Guidelines: <40 Undesirable 40-59 Borderline >59 Desirable Performed By: #### L IPR #### [facility] [address] [place], [place] [id number] Reservations And Ticketing Agent: Osvaldo Santamaria MD Cholesterol in LDL [Mass/Vol] 88 mg/dL Normal 0-100 [facility] Comment on above: Result Comment: LDL Guidelines: <100 Desirable 100-129 Near to/above Desirable 130-159 Borderline >159 Undesirable Direct (measured) LDL and calculated LDL are not interchangeable tests. Performed By: #### L IPR #### [facility] [place] [address] Reservations And Ticketing Agent: Osvaldo Santamaria MD Cholesterol in VLDL [Mass/Vol] 31 mg/dL Normal [facility] Comment on above: Performed By: #### L IPR #### [facility] [place] [address] Reservations And Ticketing Agent: Osvaldo Santamaria MD Cholesterol.total/Ch olesterol in HDL [Mass ratio] 5.0 {ratio} Normal [facility] Comment on above: Performed By: #### L IPR #### [facility] [address] [place] [address] Reservations And Ticketing Agent: Osvaldo Santamaria MD Triglyceride [Mass/Vol] 156 mg/dL High <150 [facility] Comment on above: Result Comment: Triglyceride Guidelines: <150 Desirable 150-199 Borderline 200-499 High >499 Very high Based on AHA Guidelines for fasting triglyceride, April 2012. Performed By: #### L IPR #### [facility] [place] [address] Reservations And Ticketing Agent: Osvaldo Santamaria MD US GALLBLADDER RUQon 024 US GALLBLADDER RUQ EXAMINATION: RIGHT UPPER QUADRANT ULTRASOUND 03/06/2024 9:58 am COMPARISON: None. HISTORY: ORDERING SYSTEM PROVIDED HISTORY: Elevated liver enzymes TECHNOLOGIST PROVIDED HISTORY: This procedure can be scheduled via [employer]. elevated liver enzymes, fam hx gallbladder disease. [...] Hernandez Stewart MD 03/06/24 Final result Normal [facility] CBCon 02-16-2024 Erythrocyte distribution width (RBC) [Ratio] 12.4 % Normal 11.8-14.4 [facility] Comment on above: Performed By: #### F EBC #### [address] [address] Reservations And Ticketing Agent: Osvaldo Santamaria MD #### CBC, CP #### [address] [place] [address] Reservations And Ticketing Agent: Yelena Greco MD Hematocrit (Bld) [Volume fraction] 40.2 % Normal 36.3-47.1 [facility] Comment on above: Performed By: #### F EBC #### [address] [address] Reservations And Ticketing Agent: Osvaldo Santamaria MD #### CBC, CP #### [address] [place] [address] Reservations And Ticketing Agent: Yelena Greco MD Hemoglobin (Bld) [Mass/Vol] 13.5 g/dL Normal 11.9-15.1 [facility] Comment on above: Performed By: #### F EBC #### [address] [address] Reservations And Ticketing Agent: Osvaldo Santamaria MD #### CBC, CP #### [address] [place] [address] Reservations And Ticketing Agent: Yelena Greco MD MCH (RBC) [Entitic mass] 29.8 pg Normal 25.2-33.5 [facility] Comment on above: Performed By: #### F EBC #### [address] [address] Reservations And Ticketing Agent: Osvaldo Santamaria MD #### CBC, CP #### [address] [place], [place] [phone] Reservations And Ticketing Agent: Yelena Greco MD MCHC (RBC) [Mass/Vol] 33.6 g/dL Normal 28.4-34.8 [facility] Comment on above: Performed By: #### F EBC #### [address] [address] Reservations And Ticketing Agent: Osvaldo Santamaria MD #### CBC, CP #### [address] [place] [address] Reservations And Ticketing Agent: Yelena Greco MD MCV (RBC) [Entitic vol] 88.7 fL Normal 82.6-102.9 [facility] Comment on above: Performed By: #### F EBC #### [address] [address] Reservations And Ticketing Agent: Osvaldo Santamaria MD #### CBC, CP #### [address] [place] [address] Reservations And Ticketing Agent: Yelena Greco MD NRBC Automated 0.0 per 100 WBC Normal 0.0 [facility] Comment on above: Performed By: #### F EBC #### [address] [address] Reservations And Ticketing Agent: Osvaldo Santamaria MD #### CBC, CP #### [address] [place] [address] Reservations And Ticketing Agent: Yelena Greco MD Platelet mean volume (Bld) [Entitic vol] 8.5 fL Normal 8.1-13.5 [facility] Comment on above: Performed By: #### F EBC #### [address] [id number] Reservations And Ticketing Agent: Osvaldo Santamaria MD #### CBC, CP #### [address] [place] [address] Reservations And Ticketing Agent: Yelena Greco MD Platelets (Bld) [#/Vol] 309 10*3/uL Normal 138-453 [facility] Comment on above: Performed By: #### F EBC #### [address] [address] Reservations And Ticketing Agent: Osvaldo Santamaria MD #### CBC, CP #### [address] [place] [address] Reservations And Ticketing Agent: Yelena Greco MD RBC (Bld) [#/Vol] 4.53 10*6/uL Normal 3.95-5.11 [facility] Comment on above: Performed By: #### F EBC #### [address] [address] Reservations And Ticketing Agent: Osvaldo Santamaria MD #### CBC, CP #### [address] [place] [address] Reservations And Ticketing Agent: Yelena Greco MD WBC (Bld) [#/Vol] 6.5 10*3/uL Normal 3.5-11.3 [facility] Comment on above: Performed By: #### F EBC #### [address] [address] Reservations And Ticketing Agent: Osvaldo Santamaria MD #### CBC, CP #### [address] [place] [address] Reservations And Ticketing Agent: Yelena Greco MD Comp Metabolic Profon 2023 Albumin [Mass/Vol] 4.5 g/dL Normal 3.5-5.2 [facility] Comment on above: Performed By: #### F EBC #### [address] [address] Reservations And Ticketing Agent: Osvaldo Santamaria MD #### CBC, CP #### [facility] [address] [place], [place] [address] Reservations And Ticketing Agent: Yelena Greco MD Albumin/Glob Ratio 1.5 Normal 1.0-2.5 [facility] Comment on above: Performed By: #### F EBC #### [address] [address] Reservations And Ticketing Agent: Osvaldo Santamaria MD #### CBC, CP #### [facility] [address] [place] [address] Reservations And Ticketing Agent: Yelena Greco MD Alkaline Phos 74 U/L Normal 35-104 [facility] Comment on above: Performed By: #### F EBC #### [address] [address] Reservations And Ticketing Agent: Osvaldo Santamaria MD #### CBC, CP #### [facility] [address] [place] [address] [place], [place] [phone] Reservations And Ticketing Agent: Yelena Greco MD ALT [Catalytic activity/Vol] 61 U/L High 5-33 [facility] Comment on above: Performed By: #### F EBC #### [address] [address] Reservations And Ticketing Agent: Osvaldo Santamaria MD #### CBC, CP #### [facility] [address] [place], [place] [address] Reservations And Ticketing Agent: Yelena Greco MD Anion gap [Moles/Vol] 8 mmol/L Low 9-17 [facility] Comment on above: Performed By: #### F EBC #### [address] [address] Reservations And Ticketing Agent: Osvaldo Santamaria MD #### CBC, CP #### [facility] [address] [place], [place] [id number] Reservations And Ticketing Agent: Yelena Greco MD AST [Catalytic activity/Vol] 43 U/L High <32 [facility] Comment on above: Performed By: #### F EBC #### [facility] [address] [place] [address] Reservations And Ticketing Agent: Osvaldo Santamaria MD #### CBC, CP #### [facility] [address] [place] [address] [place] [place], [place] [phone] Reservations And Ticketing Agent: Yelena Greco MD Bilirubin [Mass/Vol] 0.2 mg/dL Low 0.3-1.2 [facility] Comment on above: Performed By: #### F EBC #### [address] [address] Reservations And Ticketing Agent: Osvaldo Santamaria MD #### CBC, CP #### [address] [place], [place] 6[address]83 Reservations And Ticketing Agent: Yelena Greco MD BUN/CRE Ratio 20 Normal 9-20 [facility] Comment on above: Performed By: #### F EBC #### [address] [address] Reservations And Ticketing Agent: Osvaldo Santamaria MD #### CBC, CP #### [address] [place], [place] 289[address]83 Reservations And Ticketing Agent: Yelena Greco MD Calcium [Mass/Vol] 9.4 mg/dL Normal 8.6-10.4 [facility] Comment on above: Performed By: #### F EBC #### [address] [address] Reservations And Ticketing Agent: Osvaldo Santamaria MD #### CBC, CP #### [address] [place], [place] 9[address]83 Reservations And Ticketing Agent: Yelena Greco MD Chloride [Moles/Vol] 100 mmol/L Normal 98-107 [facility] Comment on above: Performed By: #### F EBC #### [facility] [address] [place], [place] [phone] Reservations And Ticketing Agent: Osvaldo Santamaria MD #### CBC, CP #### [facility] [address] [place] [address] Reservations And Ticketing Agent: Yelena Greco MD CO2 [Moles/Vol] 28 mmol/L Normal 20-31 [facility] Comment on above: Performed By: #### F EBC #### [facility] [address] [place] [address] Reservations And Ticketing Agent: Osvaldo Santamaria MD #### CBC, CP #### [facility] [address] [place] [address] Reservations And Ticketing Agent: Yelena Greco MD Creatinine [Mass/Vol] 0.6 mg/dL Normal 0.5-0.9 [facility] Comment on above: Performed By: #### F EBC #### [facility] [address] [place] [address] Reservations And Ticketing Agent: Osvaldo Santamaria MD #### CBC, CP #### [facility] [address] [place] [address] Reservations And Ticketing Agent: Yelena Greco MD GFR/1.73 sq M.predicted among non-blacks MDRD (S/P/Bld) [Vol rate/Area] mL/min/{1.73_m2} Normal >60 [facility] Comment on above: Result Comment: These [...] secretion. Performed By: #### F EBC #### [address] [address] Reservations And Ticketing Agent: Osvaldo Santamaria MD #### CBC, CP #### [address] [place], [place] 06[address] Reservations And Ticketing Agent: Yelena Greco MD Glucose [Mass/Vol] 91 mg/dL Normal 70-99 [facility] Comment on above: Performed By: #### F EBC #### [address] [address] Reservations And Ticketing Agent: Osvaldo Santamaria MD #### CBC, CP #### [address] [place], [place] 665[address]83 Reservations And Ticketing Agent: Yelena Greco MD Potassium [Moles/Vol] 4.2 mmol/L Normal 3.7-5.3 [facility] Comment on above: Performed By: #### F EBC #### [address] [address] Reservations And Ticketing Agent: Osvaldo Santamaria MD #### CBC, CP #### [address] [place], [place] 9798183 Reservations And Ticketing Agent: Yelena Greco MD Protein [Mass/Vol] 7.6 g/dL Normal 6.4-8.3 [facility] Comment on above: Performed By: #### F EBC #### [address] [address] Reservations And Ticketing Agent: Osvaldo Santamaria MD #### CBC, CP #### [address] [place], [place] [address] Reservations And Ticketing Agent: Yelena Greco MD Sodium [Moles/Vol] 136 mmol/L Normal 135-144 [facility] Comment on above: Performed By: #### F EBC #### [address] [address] Reservations And Ticketing Agent: Osvaldo Santamaria MD #### CBC, CP #### [facility] [address] [address] Reservations And Ticketing Agent: Yelena Greco MD Urea nitrogen [Mass/Vol] 12 mg/dL Normal 6-20 [facility] Comment on above: Performed By: #### F EBC #### [address] [address] Reservations And Ticketing Agent: Osvaldo Santamaria MD #### CBC, CP #### [facility] [address] [place] [address] Reservations And Ticketing Agent: Yelena Greco MD Iron Binding Cap.on 02-16-20 24 % Fe Saturation 25 % Normal 20-55 [facility] Comment on above: Performed By: #### F EBC #### [address] [address] Reservations And Ticketing Agent: Osvaldo Santamaria MD #### CBC, CP #### [address] [place] [address] [place] [address] Reservations And Ticketing Agent: Yelena Greco MD Iron [Mass/Vol] 92 ug/dL Normal 37-145 [facility] Comment on above: Performed By: #### F EBC #### [address] [address] Reservations And Ticketing Agent: Osvaldo Santamaria MD #### CBC, CP #### [facility] [address] [place], [place] [address] Reservations And Ticketing Agent: Yelena Greco MD Total Fe Binding Cap 373 ug/dL Normal 250-450 [facility] Comment on above: Performed By: #### F EBC #### [address] [address] Reservations And Ticketing Agent: Osvaldo Santamaria MD #### CBC, CP #### [facility] [address] [place], [place] 756[address]83 Reservations And Ticketing Agent: Yelena Greco MD Unbound Fe Bind Cap 281 ug/dL Normal 112-347 [facility] Comment on above: Performed By: #### F EBC #### [facility] [address] [place] [address] Reservations And Ticketing Agent: Osvaldo Santamaria MD #### CBC, CP #### [facility] [address] [place], [place] [id number] Reservations And Ticketing Agent: Yelena Greco MD Lipid Profileon 02-16-2024 Cholesterol [Mass/Vol] 245 mg/dL High 0-199 [facility] Comment on above: Result Comment: Cholesterol Guidelines: <200 Desirable 200-240 Borderline >240 Undesirable Performed By: #### L IPR #### [address] [address] Reservations And Ticketing Agent: Osvaldo Santamaria MD Cholesterol in HDL [Mass/Vol] 34 mg/dL Low >40 [facility] Comment on above: Result Comment: HDL Guidelines: <40 Undesirable 40-59 Borderline >59 Desirable Performed By: #### L IPR #### [address] [address] Reservations And Ticketing Agent: Osvaldo Santamaria MD Cholesterol in LDL [Mass/Vol] 159 mg/dL High 0-100 [facility] Comment on above: Result Comment: LDL Guidelines: <100 Desirable 100-129 Near to/above Desirable 130-159 Borderline >159 Undesirable Direct (measured) LDL and calculated LDL are not interchangeable tests. Performed By: #### L IPR #### [facility] [address] [place] [address] Reservations And Ticketing Agent: Osvaldo Santamaria MD Cholesterol in VLDL [Mass/Vol] 52 mg/dL Normal [facility] Comment on above: Performed By: #### L IPR #### [address] [place] [address] Reservations And Ticketing Agent: Osvaldo Santamaria MD Cholesterol.total/Ch olesterol in HDL [Mass ratio] 7.0 {ratio} Normal [facility] Comment on above: Performed By: #### L IPR #### [facility] [address] [place], [place] [id number] Reservations And Ticketing Agent: Osvaldo Santamaria MD Triglyceride [Mass/Vol] 259 mg/dL High <150 [facility] Comment on above: Result Comment: Triglyceride Guidelines: <150 Desirable 150-199 Borderline 200-499 High >499 Very high Based on AHA Guidelines for fasting triglyceride, April 2012. Performed By: #### L IPR #### [facility] [address] [place] [address] Reservations And Ticketing Agent: Osvaldo Santamaria MD Office Visiton 07-11-2023 Follow-up visit [id number] Vinny Downey 2000 Provider Department Center 07/11/2023 241-RAJENDRA SHEFFIELD SAMSON Mccormick Family History Problem Relation Age of Onset Anemia Mother Supraventricular tachycardia Father Hyperlipidemia Father Diabetes Sister Family Status - Relation Status Age at Mother Father Sister Level of Service:97239 ID OFFICE/OUTPATIENT NEW MODERATE MDM 45 MINUTES Normal [facility] Office Visiton 03-20-2023 Follow-up visit [id number] Vinny Downey 2000 Provider Department Center 03/20/2023 ISRAEL ULLOA SAMSON Mccormick Family History Problem Relation Age of Onset Anemia Mother Supraventricular tachycardia Father Hyperlipidemia Father Diabetes Sister Family Status - Relation Status Age at Mother Father Sister Level of Service:06985 ID OFFICE/OUTPATIENT NEW LOW MDM 30-44 MINUTES Normal [...] Date: 2022-12-20 07:03 Normal [facility] US PREG PLACENTAon US PREG PLACENTA [...] Date: 2022-12-12 14:56 Normal [facility] US PREG BIOPHY W NON STRESSo [...] LUIS ALFREDO GRANT Date: 2022-12-11 04:08 Normal [facility] US PREG GROWTHon 12-11-2022 US [...] Date: 2022-12-11 04:06 Normal [facility] GTT 3 HR PREGon 10-22-2022 Glucose [Mass/Vol] 98 mg/dL Normal 74-106 [facility] Comment on above: Performed By: #### G TT3P #### [facility] [address] [place] [address] Dr. Emilee Springer Glucose [Mass/Vol] 170 mg/dL Normal [facility] Comment on above: Performed By: #### G TT3P #### [facility] [address] [place] [address] Dr. Emilee Springer Glucose [Mass/Vol] 201 mg/dL Normal [facility] Comment on above: Performed By: #### G TT3P #### [facility] [address] [place] [address] Dr. Emilee Springer Glucose [Mass/Vol] 115 mg/dL Normal [facility] Comment on above: Performed By: #### G TT3P #### [facility] [address] [place] [address] Dr. Emilee Springer US PREG INCOMPLETE ANATOMYon [...] Date: 2022-10-16 08:44 Normal [facility] CBC AUTO DIFFon 10-15-2022 BASO # 0.0 103/ul Normal 0.0-0.1 [facility] Comment on above: Performed By: #### C BC #### [facility] [address] [place] [address] Dr. Emilee Springer Basophils/100 WBC (Bld) 0.2 % Normal 0.2-2.0 [facility] Comment on above: Performed By: #### C BC #### [facility] [address] [place] [address] Dr. Emilee Springer EO # 0.1 103/ul Normal 0.0-0.7 [facility] Comment on above: Performed By: #### C BC #### [facility] [address] [place] [address] Dr. Emilee Springer Eosinophils/100 WBC (Bld) 0.8 % Critically low 0.9-7.0 [facility] Comment on above: Performed By: #### C BC #### [facility] [address] [place] [address] Dr. Emilee Springer Erythrocyte distribution width (RBC) [Ratio] 12.5 % Normal 11.0-15.0 [facility] Comment on above: Performed By: #### C BC #### [facility] [address] [place] [address] Dr. Emilee Springer Hematocrit (Bld) [Volume fraction] 29.8 % Critically low 36.0-48.0 [facility] Comment on above: Performed By: #### C BC #### [facility] [address] [place] [address] Dr. Emilee Springer Hemoglobin (Bld) [Mass/Vol] 10.0 g/dL Critically low 12.0-16.0 [facility] Comment on above: Performed By: #### C BC #### [facility] [address] [place] [address] Dr. Emilee Springer IG # 0.05 10e3/ul Critically high 0.00-0.03 [facility] Comment on above: Performed By: #### C BC #### [facility] [address] [place] [address] Dr. Emilee pSringer IG % 0.5 % Normal 0.0-0.5 [facility] Comment on above: Performed By: #### C BC #### [facility] [address] [place] [address] Dr. Emilee Springer LYMPH # 1.6 103/ul Normal 1.2-3.[address] [facility] Comment on above: Performed By: #### C BC #### [facility] [address] [place] [address] Dr. Emilee Springer Lymphocytes/100 WBC (Bld) 15.3 % Critically low 20.5-60.0 [facility] Comment on above: Performed By: #### C BC #### [facility] [address] [place] [address] Dr. Emilee Springer MANUAL DIFF REQ NO Normal [facility] Comment on above: Performed By: #### C BC #### [facility] [address] [place] [address] Dr. Emilee Springer MCH (RBC) [Entitic mass] 30.2 pg Normal 26.7-34.0 [facility] Comment on above: Performed By: #### C BC #### [facility] [address] [place] [address] Dr. Emilee Springer MCHC (RBC) [Mass/Vol] 33.6 g/dL Normal 29.9-35.2 [facility] Comment on above: Performed By: #### C BC #### [facility] [address] [place] [address] Dr. Emilee Springer MCV (RBC) [Entitic vol] 90.0 fL Normal 81.0-99.0 [facility] Comment on above: Performed By: #### C BC #### [facility] [address] [place] [address] Dr. Emilee Springer MONO # 0.6 103/ul Normal 0.3-0.[address] [facility] Comment on above: Performed By: #### C BC #### [facility] [address] [place] [address] Dr. Emilee Springer Monocytes/100 WBC (Bld) 5.8 % Normal 1.7-12.[address] [facility] Comment on above: Performed By: #### C BC #### [facility] [address] [address] [address] Emilee Springer NEUT # 8.2 103/ul Critically high 1.4-6.5 [facility] Comment on above: Performed By: #### C BC #### [facility] [address] [place] [address] Dr. Emilee Springer Neutrophils/100 WBC (Bld) 77.4 % Critically high 43.0-75.0 [facility] Comment on above: Performed By: #### C BC #### [facility] [address] [place] [address] Dr. Emilee Springer Platelet mean volume (Bld) [Entitic vol] 8.5 fL Critically low 9.5-13.5 [facility] Comment on above: Performed By: #### C BC #### [facility] [address] [place] [address] Dr. Emilee Springer PLT 347 103/ul Normal 150-450 [facility] Comment on above: Performed By: #### C BC #### [facility] [address] [place] [address] Dr. Emilee Springer RBC 3.31 106/ul Critically low 4.20-5.40 [facility] Comment on above: Performed By: #### C BC #### [facility] [address] [place] [address] Dr. Emilee Springer WBC 10.6 103/ul Normal 4.0-11.0 [facility] Comment on above: Performed By: #### C BC #### [facility] [address] [place] [address] Dr. Emilee Springer GLUCOSE - 1HRon 10-15-2022 Glucose [Mass/Vol] 176 mg/dL Critically high 74-106 [facility] Comment on above: Performed By: #### G LU1HR #### [facility] [address] [place] [address] Dr. Emilee Springer CHLAMYDIA/GONOCOCCUS ANISA (SW AB/URINE/PAPon 09-15-2022 Chlamydia trachomatis, ANISA Negative Normal Negative [facility] Comment on above: Performed By: #### C BC #### [facility] [address] [address] [address] Emilee Springer Neisseria gonorrhoeae, ANISA Negative Normal Negative [facility] Comment on above: Performed By: #### C BC #### [facility] [address] [address] [address] Emilee Springer VAGINITIS/VAGINOSIS DNA PROB Leonid 09-14-2022 Ainsley species Negative Normal Negative [facility] Comment on above: Performed By: #### C BC #### [facility] [address] [address] [address] Emilee Springer Gardnerella vaginalis Negative Normal Negative [facility] Comment on above: Performed By: #### C BC #### [facility] [address] [address] [address] Emilee Springer Trichomonas vaginalis Negative Normal Negative [facility] Comment on above: Performed By: #### C BC #### [facility] [address] [address] [address] Emilee Springer US PREG ANATOMY SINGLEon [...] Date: 2022-09-13 16:57 Normal [facility] AFP MATERNAL FOR SPINA BIFID Aon 08-31-2022 AFP MoM 0.42 Normal [facility] Comment on above: Performed By: #### A FPMAT #### [facility] [address] [address] [address] Emilee Springer AFP Value 16.7 ng/mL Normal [facility] Comment on above: Performed By: #### A FPMAT #### [facility] [address] [address] [address] Emilee Springer AFP, Serum for Spina Bifida Report Normal [facility] Comment on above: Performed By: #### A FPMAT #### [facility] [address] [address] [address] Emilee Springer Comment Comment Normal [facility] Comment on above: Result Comment: Darío Machado, Ph.D., [facility] Director . References: Available Upon Request. . Multiples Of Median Cutoffs For AFP Elevations Berkowitz 2.5 Black 2.8 IDD 2.0 Twins 4.5 Abbreviation Definitions IDD - Insulin Dep Diabetes OSBR - Open Spina Bifida Risk . For further inquiries contact ? [facility] at [phone]. . This test was developed and its performance characteristics determined by [facility]. It has not been cleared or approved by the Food and Drug Administration. Performed By: #### A FPMAT #### [facility] [address] [address] [address] Emilee Worrell Age Collection Date 18.6 weeks Normal [facility] Comment on above: Performed By: #### A FPMAT #### [facility] [address] [address] [address] Emilee Springer Gestat, Age Based on JOCELIN [facility] Comment on above: Result Comment: 12/2022 Recalculations are not recommended when gestational dating by LMP and ultrasound are within 10 days. Performed By: #### A FPMAT #### [facility] [address] [place] [address] Dr. Emilee Springer Insulin Dep Diabetes Comment Normal [facility] Comment on above: Result Comment: Not provided. . Performed By: #### A FPMAT #### [facility] [address] [address] [address] Emilee Springer Interpretation Comment Normal [facility] Comment on above: Result Comment: Inte [...] By: #### A FPMAT #### [facility] [address] [place] [address] Dr. Emilee Springer [age] Normal [facility] Comment on above: Performed By: #### A FPMAT #### [facility] [address] [place] [address] Dr. Emilee Springer Multiple Gestation Comment Normal [facility] Comment on above: Result Comment: Not provided. . Performed By: #### A FPMAT #### [facility] [address] [place] [address] Dr. Emilee Springer OS[place] [address] [place] [address] [facility] Comment on above: Performed By: #### A FPMAT #### [facility] [address] [place] [address] Dr. Emilee Springer PDF . Normal [facility] Comment on above: Performed By: #### A FPMAT #### [facility] [address] [place] [address] Dr. Emilee Springer Race Comment Normal [facility] Comment on above: Result Comment: Not provided. . Performed By: #### A FPMAT #### [facility] [address] [place] [address] Dr. Emilee Springer Test Results: Negative Normal [facility] Comment on above: Performed By: #### A FPMAT #### [facility] [address] [place] [address] Dr. Emilee Springer Rubella antibody, IgGon -0 Rubella virus IgG Ql (S) 314.5 IU/mL [facility] Comment on above: REFERENCE RANGE: <5.0 NON-REACTIVE (non-immune) 5.0 TO 9.9 EQUIVOCAL >=10.0 REACTIVE (immune) [facility] HEP B SURFACE ANTIGEN SCREEN on 07-05-2022 HBsAg Screen Negative Normal Negative [facility] Comment on above: Performed By: #### H BSANS #### [facility] [address] [place] [address] Dr. Emilee Springer HEPATITIS C VIRUS AB W/ REFL EX QUANTon 07-05-2022 HCV AB <0.1 Normal 0.0-0.9 [facility] Comment on above: Performed By: #### H CVPCRR #### [facility] [address] [place] [address] Dr. Emilee Springer Interpretation: Comment Normal [facility] Comment on above: Result Comment: Nega tive Not infected with HCV, unless recent infection is suspected or other evidence exists to indicate HCV infection. Performed By: #### H CVPCRR #### [facility] [address] [place] [address] Dr. Emilee Springer HIV 1 AND 2 WITH REFLEXon HIV Screen 4th Generation wRfx Non-Reactive Normal Non Reactive [facility] Comment on above: Result Comment: HIV Negative HIV-1/HIV-2 antibodies and HIV-1 p24 antigen were NOT detected. There is no laboratory evidence of HIV infection. Performed By: #### C BC #### [facility] [address] [place] [address] Dr. Emilee Springer RPR QUANTon 07-05-2022 Rapid Plasma Reagin, Quant Non-Reactive Normal NonRea<1:[address] [facility] Comment on above: Result Comment: Calvin wilson Note: This test does not meet current guidelines for screening and diagnosis of syphilis. This test is intended for following treatment response in patients being treated for syphilis infection. To screen for syphilis infection, a reflex cascade that includes both RPR and a treponema-specific assay should be utilized, such as Treponema pallidum (Syphilis) Screening [place] (942842) or Rapid Plasma Reagin (RPR) Test With Reflex to Quantitative RPR and Confirmatory Treponema pallidum Antibodies (176150). Performed By: #### C BC #### [facility] [address] [place] [address] Dr. Emilee Springer RUBELLA AB IGGon 07-05-2022 Rubella Antibodies, IgG 5.03 index Normal Immune >0.99 [facility] Comment on above: Result Comment: Non- immune <0.90 Equivocal 0.90 - 0.99 Immune >0.99 Performed By: #### R UBIGG #### [facility] [address] [place] [address] Dr. Emilee Springer CBC AUTO DIFFon 07-04-2022 BASO # 0.0 103/ul Normal 0.0-0.1 [facility] Comment on above: Performed By: #### G LU1HR #### [facility] [address] [place] [address] Dr. Emilee Springer Basophils/100 WBC (Bld) 0.2 % Normal 0.2-2.[address] [facility] Comment on above: Performed By: #### G LU1HR #### [facility] [address] [place] [address] Dr. Emilee Springer EO # 0.1 103/ul Normal 0.0-0.[address] [facility] Comment on above: Performed By: #### G LU1HR #### [facility] [address] [place] [address] Dr. Emilee Springer Eosinophils/100 WBC (Bld) 0.9 % Normal 0.9-7.0 [facility] Comment on above: Performed By: #### G LU1HR #### [facility] [address] [place] [address] Dr. Emilee Springer Erythrocyte distribution width (RBC) [Ratio] 11.9 % Normal 11.0-15.0 [facility] Comment on above: Performed By: #### G LU1HR #### [facility] [address] [place] [address] Dr. Emilee Springer Hematocrit (Bld) [Volume fraction] 32.9 % Critically low 36.0-48.0 [facility] Comment on above: Performed By: #### G LU1HR #### [facility] [address] [place] [address] Dr. Emilee Springer Hemoglobin (Bld) [Mass/Vol] 11.6 g/dL Critically low 12.0-16.0 [facility] Comment on above: Performed By: #### G LU1HR #### [facility] [address] [place] [address] Dr. Emilee Springer IG # 0.03 10e3/ul Normal 0.00-0.03 [facility] Comment on above: Performed By: #### G LU1HR #### [facility] [address] [place] [address] Dr. Emilee Springer IG % 0.3 % Normal 0.0-0.5 [facility] Comment on above: Performed By: #### G LU1HR #### [facility] [address] [place] [address] Dr. Emilee Springer LYMPH # 2.1 103/ul Normal 1.2-3.[address] [facility] Comment on above: Performed By: #### G LU1HR #### [facility] [address] [place] [address] Dr. Emilee Springer Lymphocytes/100 WBC (Bld) 20.2 % Critically low 20.5-60.0 [facility] Comment on above: Performed By: #### G LU1HR #### [facility] [address] [place] [address] Dr. Emilee Springer MANUAL DIFF REQ NO Normal [facility] Comment on above: Performed By: #### G LU1HR #### [facility] [address] [place] [address] Dr. Emilee Springer MCH (RBC) [Entitic mass] 31.4 pg Normal 26.7-34.0 [facility] Comment on above: Performed By: #### G LU1HR #### [facility] [address] [place] [address] Dr. Emilee Springer MCHC (RBC) [Mass/Vol] 35.3 g/dL Critically high 29.9-35.[address] [facility] Comment on above: Performed By: #### G LU1HR #### [facility] [address] [place] [address] Dr. Emilee Springer MCV (RBC) [Entitic vol] 89.2 fL Normal 81.0-99.0 [facility] Comment on above: Performed By: #### G LU1HR #### [facility] [address] [place] [address] Dr. Emilee Springer MONO # 0.7 103/ul Normal 0.3-0.8 [facility] Comment on above: Performed By: #### G LU1HR #### [facility] [address] [place] [address] Dr. Emilee Springer Monocytes/100 WBC (Bld) 7.0 % Normal 1.7-12.0 [facility] Comment on above: Performed By: #### G LU1HR #### [facility] [address] [place] [address] Dr. Emilee Springer NEUT # 7.5 103/ul Critically high 1.4-6.5 [facility] Comment on above: Performed By: #### G LU1HR #### [facility] [address] [place] [address] Dr. Emilee Springer Neutrophils/100 WBC (Bld) 71.4 % Normal 43.0-75.[address] [facility] Comment on above: Performed By: #### G LU1HR #### [facility] [address] [address] [address] Emilee Springer Platelet mean volume (Bld) [Entitic vol] 9.1 fL Critically low 9.5-13.5 [facility] Comment on above: Performed By: #### G LU1HR #### [facility] [address] [address] [address] Emilee Springer PLT 311 103/ul Normal 150-450 [facility] Comment on above: Performed By: #### G LU1HR #### [facility] [address] [address] [address] Emilee Springer RBC 3.69 106/ul Critically low 4.20-5.40 [facility] Comment on above: Performed By: #### G LU1HR #### [facility] [address] [address] [address] Emilee Springer WBC 10.5 103/ul Normal 4.0-11.0 [facility] Comment on above: Performed By: #### G LU1HR #### [facility] [address] [place] [address] Dr. Emilee Springer CULTURE URINEon 07-04-2022 CULTURE URINE Culture Observations: LIGHT GROWTH OF MIXED GENITAL BREN. NO POTENTIAL PATHOGENS SEEN. Normal [facility] Comment on above: Performed By: #### G LU1HR #### [facility] [address] [address] [address] Emilee Springer GLYCOHEMOGLOBIN A1Con 2021 ADA RECOMMENDATION SEE BELOW Normal [facility] Comment on above: Result Comment: ADA RECOMMENDED LIMIT 4.0 - 6.0 ADA THERAPEUTIC TARGET < 7.0 ACTION SUGGESTED > 7.0 Performed By: #### A 1C #### [facility] [address] [address] [address] Emliee Springer Glucose [Mass/Vol] 108 mg/dL Normal [facility] Comment on above: Performed By: #### A 1C #### [facility] [address] [place] [address] Dr. Emilee Springer HbA1c (Bld) [Mass fraction] 5.4 % Normal 4.5-6.2 [facility] Comment on above: Performed By: #### A 1C #### [facility] [address] [address] [address] Emilee Springer ALLEN BOX TEST PT SEND OUTo n 07-04-2022 SENT TO REF LAB 07/04/2022 Normal [facility] Comment on above: Performed By: #### N BOX #### [facility] [address] [address] [address] Emilee Springer TYPE AND SCREENon 07-04-2022 TYPE AND SCREEN Negative Normal [facility] Comment on above: Performed By: #### G [id number] #### [facility] [address] [address] [address] Emilee Springer US PREG TVon 06-23-2022 [...] by: YELENA CARLOS Date: 2022-06-23 17:00 Normal [facility] HCG, Quantitative, on 06-02-2022 hCG Quant [id number] High NINF [facility] Comment on above: Non-preg premeno <=5 Postmeno <=8 Male <=3 If HCG results do not concur with clinical observations, additional testing to confirm results is recommended. Interpretation and review of laboratory results Abnormal [facility] PAP ACOG PANEL 2: 21 to 29on 04-24-2022 . . Normal [facility] Comment on above: Performed By: #### [id number] #### [facility] [address] [address] [address] Emilee Springer Age Gdln ACOG Testing 21-29 Normal [facility] Comment on above: Performed By: #### [id number] #### [facility] [address] [place] [address] Dr. Emilee Springer DIAGNOSIS: Comment Normal [facility] Comment on above: Result Comment: NEGA TIVE FOR INTRAEPITHELIAL LESION OR MALIGNANCY. CELLULAR CHANGES ASSOCIATED WITH INFLAMMATION ARE PRESENT. Performed By: #### [id number] #### [facility] [address] [place] [address] Dr. Emilee Springer Methodology: Comment Normal [facility] Comment on above: Result Comment: This liquid based ThinPrep(R) pap test was screened with the use of an image guided system. Performed By: #### [id number] #### [facility] [address] [place] [address] Dr. Emilee Springer Note: Comment Normal [facility] Comment on above: Result Comment: The Pap smear is a screening test designed to aid in the detection of premalignant and malignant conditions of the uterine cervix. It is not a diagnostic procedure and should not be used as the sole means of detecting cervical cancer. Both false-positive and false-negative reports do occur. . Performed By: #### [id number] #### [facility] [address] [place] [address] Dr. Emilee Springer Performed by: Comment Normal [facility] Comment on above: Result Comment: Maynor Adams, Art Handler Performed By: #### [id number] #### [facility] [address] [place] [address] Dr. Emilee Springer Reflex Criteria: Comment Normal [facility] Comment on above: Result Comment: The HPV DNA reflex criteria were not met with this specimen result therefore, no HPV testing was performed. . Performed By: #### [id number] #### [facility] [address] [place] [address] Dr. Emilee Springer Specimen adequacy: Comment Normal [facility] Comment on above: Result Comment: Sati sfactory for evaluation. Endocervical and/or squamous metaplastic cells (endocervical component) are present. Performed By: #### [id number] #### [facility] [address] [place] [address] Dr. Emilee Springer HCG, Quantitative, on 08-10-2021 hCG Quant 45 High <5 IU/L [employer] Comment on above: Non-preg premeno <=5 Postmeno <=8 Male <=3 If HCG results do not concur with clinical observations, additional testing to confirm results is recommended. Elevated results not associated with may be found in patients with other diseases such as tumors of the germ cells (testis, ovaries, etc.), bladder, pancreas, stomach, lungs, and liver. Interpretation and review of laboratory results Abnormal [employer] US RENAL COMPLETEOrdered By: Lorena Ricks on 11-25-2020 Unremarkable ultrasound of the kidneys and urinary bladder. [employer] Phone: EXAMINATION: RETROPERITONEAL ULTRASOUND OF THE KIDNEYS AND URINARY BLADDER 11/25/2020 COMPARISON: None HISTORY: ORDERING SYSTEM PROVIDED HISTORY: Frequent UTI TECHNOLOGIST PROVIDED HISTORY: This procedure can be scheduled via [employer]. Access your [employer] account by visiting [employer]. FINDINGS: Kidneys: The right kidney measures 11.1 cm in length and the left kidney measures 11.6 cm in length. Kidneys demonstrate normal cortical echogenicity. No evidence of hydronephrosis or intrarenal stones. Bladder: Unremarkable appearance of the bladder. No significant post void residual. [employer] Phone: [place], [place] Incoming Radiant Results From [employer] - 11/25/2020 3:59 PM EDT EXAMINATION: RETROPERITONEAL ULTRASOUND OF THE KIDNEYS AND URINARY BLADDER 11/25/2020 COMPARISON: None HISTORY: ORDERING SYSTEM PROVIDED HISTORY: Frequent UTI TECHNOLOGIST PROVIDED HISTORY: This procedure can be scheduled via [employer]. Access your [employer] account by visiting [employer]. FINDINGS: Kidneys: The right kidney measures 11.1 cm in length and the left kidney measures 11.6 cm in length. Kidneys demonstrate normal cortical echogenicity. No evidence of hydronephrosis or intrarenal stones. Bladder: Unremarkable appearance of the bladder. No significant post void residual. IMPRESSION: Unremarkable ultrasound of the kidneys and urinary bladder. [employer] Phone: [employer] 10-14-2020 Forms [id number] 1.00CD:127 Normal [facility] Ambulatory Clinical Summaryo n 10-13-2020 Ambulatory Clinical Summary {[id number]}CD:[id number] Normal [facility] General Surgery Office/Clini c Noteon 10-13-2020 General Surgery Office/Clinic Note Chief Complaint post operative follow up HPI Staff 8 day post operative follow up post lap appendectomy completed while in-patient at [facility]. Doing well. Minimal discomfort. Taking Ibuprofen [...] available Patient Education Exercise to Lose Weight, Pldq-tr-Wgxd Problem List/Past Medical History Ongoing Acute appendicitis [...] Family History Family history is negative Normal [facility] Comment on above: Result Comment: Elec [...] Document Reviewed: 08/12/2011 ExitCare? Patient Information ?2014 [employer]. [facility] Provider Letter FTMCon 10-13 Provider [place] [facility] [place] 13, [place] VINNY VERMA [address] [facility] [facility] [place] [address] VINNY VERMA 2000 To Whom It May Concern, Please excuse above patient from work 10/14/20. Sincerely, Dr. Sushant Lott MD General Surgery Normal [facility] Pathology Noteon 10-08-2020 Pathology Note [id number] #1.00CD:127 [facility] Facesheeton 10-07-2020 Facesheet [id number]#1.00CD:127 Normal [facility] Operative Reporton 03-17-202 1 Operative Report [id number] 1.00CD:127 Normal [facility] HIV Screenon 05-05-2020 HIV Ag/Ab NONREACTIVE NONREACTIVE [place], [place] Comment on above: No laboratory eviden ce of HIV infection. If acute HIV infection is suspected, consider testing for HIV-1 RNA. Basic Metabolic Panelon 04-23 Anion gap [Moles/Vol] 11 mmol/L 9 - 17 mmol/L [place], [place] Bun/Cre Ratio 19 [place], [place] Calcium [Mass/Vol] 9.3 mg/dL 8.6 - 10. 4 mg/dL [place] Chloride [Moles/Vol] 103 mmol/L 98 - 107 mmol/L [place] CO2 [Moles/Vol] 23 mmol/L 20 - 31 mmol/L [place] Creatinine [Mass/Vol] 0.57 mg/dL 0.5 - 0.9 mg/dL [place] GFR >60 >60 mL/min [place], [place] GFR Non- >60 >60 mL/min [place] Glucose [Mass/Vol] 88 mg/dL 70 - 99 mg/dL [place] Potassium [Moles/Vol] 4.6 mmol/L 3.7 - 5.3 mmol/L [place] Sodium [Moles/Vol] 137 mmol/L 135 - 144 mmol/L [place] Urea nitrogen [Mass/Vol] 11 mg/dL 6 - 20 mg/dL [place] CBCon 05-04-2020 Erythrocyte distribution width (RBC) [Ratio] 11.7 % Low 11.8 - 14.4 % [place] Hematocrit (Bld) [Volume fraction] 36.4 % 36.3 - 47.1 % [place] Hemoglobin (Bld) [Mass/Vol] 12.2 g/dL 11.9 - 15.1 g/dL [place] Interpretation and review of laboratory results Abnormal [place] MCH (RBC) [Entitic mass] 31.4 pg 25.2 - 33.5 pg [place] MCHC (RBC) [Mass/Vol] 33.5 g/dL 28.4 - 34.8 g/dL [place] MCV (RBC) [Entitic vol] 93.8 fL 82.6 - 102.9 fL [place] Platelet mean volume (Bld) [Entitic vol] 9.2 fL 8.1 - 13.5 fL [place], [place] Platelets (Bld) [#/Vol] 307 10*3/uL [place] RBC (Bld) [#/Vol] 3.88 10*6/uL Low 3.95 - 5.1 1 m/uL [place] WBC (Bld) [#/Vol] 7.2 10*3/uL [place] WBC (Bld) [#/Vol] 0.0 10*3/uL 0.0 per 100 WBC M [place] Metabolic Panelon 05-04-2020 GFR/1.73 sq M predicted among non-blacks MDRD (S/P/Bld) [Vol rate/Area] [place], [place] Comment on above: Stage 1: Some [...] body mass. Additional eGFR calculator available at: http://www.[employer].theDrop/multiple_crcl_2012.htm TSHon 05-04-2020 TSH Qn 2.22 m[IU]/L [place], [place] Vital Signs Date Time Vital Sign Value Performing Clinician Facility 04-30-2025 15:110 Body mass index (BMI) [Ratio] 36.7 kg/m2 Ceasar Li NP Work Phone: [facility] 04-30-2025 15:11-0400 Body weight 103.15 kg Ceasar Limonly QUALITY CONTROL AUDITOR Work Phone: [facility] 04-30-2025 15:11-0400 Diastolic blood pressure 70 mm[Hg] Ceasar Millererly QUALITY CONTROL AUDITOR Work Phone: [facility] 04-30-2025 15:11-0400 Systolic blood pressure 110 mm[Hg] Ceasar Limonly QUALITY CONTROL AUDITOR Work Phone: [facility] 04-14-2025 15:50-0400 Body mass index (BMI) [Ratio] 36.64 kg/m2 Virgil Oralia PA Work Phone: [facility] 04-14-2025 15:50-0400 Body weight 102.97 kg Virgil Scranton PA Work Phone: [facility] 04-14-2025 15:50-0400 Diastolic blood pressure 60 mm[Hg] Virgil Scranton PA Work Phone: [facility] 04-14-2025 15:50-0400 Systolic blood pressure 110 mm[Hg] Virgil Oralia PA Work Phone: [facility] 04-03-2025 15:44-0400 Body mass index (BMI) [Ratio] 36.61 kg/m2 Virgil Scranton PA Work Phone: [facility] 04-03-2025 15:44-0400 Body weight 102.88 kg Virgil Scranton PA Work Phone: [facility] 04-03-2025 15:44-0400 Diastolic blood pressure 70 mm[Hg] Virgil Oralia PA Work Phone: [facility] 04-03-2025 15:44-0400 Systolic blood pressure 120 mm[Hg] Virgil Oralia PA Work Phone: [facility] 03-12-2025 16:08-0400 Body mass index (BMI) [Ratio] 36.12 kg/m2 Mukul Law DO Work Phone: [facility] 03-12-2025 16:08-0400 Body weight 101.52 kg Mukul Law DO Work Phone: [facility] 03-12-2025 16:08-0400 Diastolic blood pressure 70 mm[Hg] Mukul Law DO Work Phone: [facility] 03-12-2025 16:08-0400 Systolic blood pressure 100 mm[Hg] Mukul Law DO Work Phone: [facility] 02-26-2025 15:58-0400 Body mass index (BMI) [Ratio] 35.96 kg/m2 Mukul Law DO Work Phone: [facility] 02-26-2025 15:58-0400 Body weight 101.06 kg Mukul Law DO Work Phone: [facility] 02-26-2025 15:58-0400 Diastolic blood pressure 70 mm[Hg] Mukul Law DO Work Phone: [facility] 02-26-2025 15:58-0400 Systolic blood pressure 110 mm[Hg] Mukul Law DO Work Phone: [facility] 02-11-2025 14:06-0400 Body mass index (BMI) [Ratio] 34.99 kg/m2 Mukul Law DO Work Phone: [facility] 02-11-2025 14:06-0400 Body weight 98.34 kg Mukul Law DO Work Phone: [facility] 02-11-2025 14:06-0400 Diastolic blood pressure 76 mm[Hg] Mukul Law DO Work Phone: [facility] 02-11-2025 14:06-0400 Systolic blood pressure 116 mm[Hg] Mukul Law DO Work Phone: [facility] 01-15-2025 16:41-0400 Body mass index (BMI) [Ratio] 34.19 kg/m2 Mukul Law DO Work Phone: [facility] 01-15-2025 16:41-0400 Body weight 96.07 kg Mukul Law DO Work Phone: [facility] 01-15-2025 16:41-0400 Diastolic blood pressure 72 mm[Hg] Mukul Law DO Work Phone: [facility] 01-15-2025 16:41-0400 Systolic blood pressure 118 mm[Hg] Mukul Law DO Work Phone: [facility] 12-18-2024 16:15-0400 Body mass index (BMI) [Ratio] 34.22 kg/m2 Mukul Law DO Work Phone: [facility] 12-18-2024 16:15-0400 Body weight 96.16 kg Mukul Law DO Work Phone: [facility] 12-18-2024 16:15-0400 Diastolic blood pressure 70 mm[Hg] Mukul Law DO Work Phone: [facility] 12-18-2024 16:15-0400 Systolic blood pressure 116 mm[Hg] Mukul Law DO Work Phone: [facility] 11-14-2024 15:15-0400 Body mass index (BMI) [Ratio] 33.57 kg/m2 Noms Nurse [facility] 11-14-2024 15:15-0400 Body weight 94.35 kg Nom Nurse [facility] 11-14-2024 15:15-0400 Diastolic blood pressure 74 mm[Hg] Nom Nurse [facility] 11-14-2024 15:15-0400 Systolic blood pressure 122 mm[Hg] Nom Nurse [facility] 07-15-2024 16:25-0500 Body mass index (BMI) [Ratio] 32.93 kg/m2 Mukul Law DO Work Phone: [facility] 07-15-2024 16:25-0500 Body weight 92.53 kg Mukul Law DO Work Phone: [facility] 08-31-2022 03:06-0500 Body weight 94.[address] MUKUL FOY . [facility] Comment on above: Performed By: #### AFPMAT #### [facility] [address] [place] [address] Dr. Emilee Springer Encounters Encounter Date Encounter Type Care Provider Facility Start: 04-30-2025 End: 04-30-2025 ambulatory CEASAR LI Not Available Start: 04-30-2025 End: 04-30-2025 flow sheet Ceasar Li QUALITY CONTROL AUDITOR Work Phone: [facility] Comment on above: Third trimester preg gunner ([facility]); 32 weeks gestation of ([facility]) Start: 04-30-2025 End: 04-30-2025 Bamboo flowsheet Ceasar Li QUALITY CONTROL AUDITOR Work Phone: [facility] Start: 04-30-2025 End: 04-30-2025 Bamboo flowsheet Ceasar Li QUALITY CONTROL AUDITOR Work Phone: [facility] Start: 04-30-2025 End: 04-30-2025 Clinisync Result Encounter Mukul Foy DO Work Phone: [facility] Unsolicited Start: 04-14-2025 End: 04-14-2025 ambulatory VIRGIL BARTON Not Available Start: 04-14-2025 End: 04-14-2025 flow sheet Virgil Barton PA Work Phone: [facility] Comment on above: Third trimester preg gunner ([facility]); 30 weeks gestation of ([facility]) Start: 04-14-2025 End: 04-14-2025 Bamboo flowsheet Virgil RUIZ Work Phone: [facility] Start: 04-14-2025 End: 04-14-2025 Bamboo flowsheet Virgil RUIZ Work Phone: [facility] Start: 04-05-2025 End: 04-05-2025 Clinisync Result Encounter Virgil RUIZ Work Phone: [facility] Unsolicited Start: 04-05-2025 End: 04-05-2025 Clinisync Result Encounter Virgil RUIZ Work Phone: [facility] Unsolicited Start: 04-03-2025 End: 04-03-2025 ambulatory VIRGIL BARTON Not Available Start: 04-03-2025 End: 04-03-2025 flow sheet Virgil RUIZ Work Phone: [facility] [place] [facility] Comment on above: 28 weeks gestation o f ([facility]); Third trimester ([facility]); Dizziness; Gestational diabetes mellitus (GDM), antepartum, gestational diabetes method of control unspecified ([facility]); History of miscarriage; Anemia, unspecified type; UTI symptoms Start: 04-03-2025 End: 04-03-2025 Bamboo flowsheet Virgil RUIZ Work Phone: [facility] Start: 04-03-2025 End: 04-03-2025 Bamboo flowsheet Virgil RUIZ Work Phone: [facility] Start: 03-12-2025 End: 03-12-2025 ambulatory MUKUL LAW Not Available Start: 03-12-2025 End: 03-12-2025 flow sheet Mukul Law DO Work Phone: [facility] [place] [facility] Comment on above: 25 weeks gestation o f ([facility]); Second trimester ([facility]); Gastroesophageal reflux disease without esophagitis Start: [...] on above: 23 weeks gestation o f ([facility]); Elevated blood sugar level; Gastroesophageal reflux disease without esophagitis Start: 02-26-2025 End: 02-26-2025 Bamboo flowsheet Mukul Law DO Work Phone: [facility] Start: 02-26-2025 End: 02-26-2025 Bamboo flowsheet Mukul Law DO Work Phone: [facility] Start: 02-11-2025 End: 02-11-2025 flow sheet Mukul Law DO Work Phone: [facility] Comment on above: Second trimester pre gnancy ([facility]); 20 weeks gestation of ([facility]) Start: 02-11-2025 End: 02-11-2025 ambulatory MUKUL LAW Not Available Start: 01-15-2025 End: 01-15-2025 ambulatory MUKUL LAW Not Available Start: 01-15-2025 End: 01-15-2025 flow sheet Mukul Law DO Work Phone: [facility] Comment on above: Second trimester pre gnancy ([facility]); 17 weeks gestation of ([facility]); Vaginal discharge; STD exposure; Screening, , for anatomic survey ([facility]); Gastroesophageal reflux in ([facility]); Gestational diabetes mellitus (GDM), antepartum, gestational diabetes method of control unspecified ([facility]) Start: 01-15-2025 End: 01-15-2025 Bamboo flowsheet Mukul Law DO Work Phone: [facility] Start: 01-15-2025 End: 01-17-2025 Bamboo flowsheet Mukul Law DO Work Phone: [facility] Start: 01-15-2025 End: 01-17-2025 External Result Encounter Virgil RUIZ Work Phone: [facility] Department Unsolicited Start: 01-07-2025 End: 01-07-2025 ambulatory YNES M RODRIGUEZ [facility] Start: 01-07-2025 End: 01-07-2025 Subsequent hospital visit by physician Ynes Rodriguez METALLURGICAL LABORATORY ASSISTANT - INVESTIGATION DIVISION SERGEANT Work Phone: [facility] Start: 12-23-2024 End: 12-23-2024 Clinisync Result Encounter Mukul Law DO Work Phone: [facility] Unsolicited Start: 12-23-2024 End: 12-23-2024 Clinisync Result Encounter Mukul Law DO Work Phone: [facility] Unsolicited Start: 12-20-2024 End: 12-22-2024 ambulatory YNES RODRIGUEZ [facility] Start: 12-20-2024 End: 12-22-2024 Subsequent hospital visit by physician [facility] Ultrasound Room [facility] Ultrasound Comment on above: Subchorionic hematom [...] Start: 05-20-2024 End: 05-20-2024 ambulatory [facility] Start: 05-20-2024 End: 05-20-2024 Subsequent hospital visit by physician Ynes Steele CNP Work Phone: [facility] Comment on above: Elevated liver enzym es; Mixed hyperlipidemia Start: 03-06-2024 End: 03-08-2024 ambulatory YNES [facility] Start: 02-16-2024 End: 02-16-2024 ambulatory YNES [facility] Start: 08-06-2023 End: 08-06-2023 ambulatory Facility:[facility] Start: 07-11-2023 End: 07-11-2023 ambulatory RAJENDRA SHEFFIELD [facility] Start: 03-20-2023 End: 03-20-2023 ambulatory ISRAEL [facility] Start: 12-17-2022 End: 12-17-[address] MUKUL [...] End: 08-01-2022 [facility] Start: 07-04-2022 End: 07-05-[address] MUKUL FOY . Facility:[facility] Start: 06-23-2022 End: 06-24-[address] YELENA CARLOS Facility:[facility] Start: 06-09-2022 End: 06-10-[address] MUKUL FOY . Facility:[facility] Start: 06-02-2022 End: 06-02-2022 Subsequent hospital visit by physician Ynes Steele CNP Work Phone: [facility] Start: 04-18-2022 End: 04-18-[address] MUKUL FOY . Facility: Start: 09-23-2021 End: 09-27-2021 ambulatory BERTO LIVE [facility] Start: 09-08-2021 End: 09-12-2021 ambulatory MUKUL [facility] Start: 08-25-2021 End: 08-29-2021 ambulatory [facility] Start: 08-19-2021 End: 08-23-2021 ambulatory [facility] Start: 08-10-2021 End: 08-10-2021 Subsequent hospital visit by physician Ynes Steele CNP Work Phone: [facility] Comment on above: Amenorrhea Start: 11-25-2020 End: 11-27-2020 Subsequent hospital visit by physician [place] Ultrasound Room [facility] Radiology Comment on above: Frequent UTI [...] in Cervix by Cyto stain Ynes Rodriguez METALLURGICAL LABORATORY ASSISTANT - INVESTIGATION DIVISION SERGEANT Work Phone: Start: 05-20-2024 Lipid panel Ynes hess METALLURGICAL LABORATORY ASSISTANT - INVESTIGATION DIVISION SERGEANT Work Phone: Start: 05-20-2024 Comprehensive metabo lic panel Ynes Rodriguez METALLURGICAL LABORATORY ASSISTANT - INVESTIGATION DIVISION SERGEANT Work Phone: Start: 07-15-2023 Microscopic observat ion [Identifier] in Cervix by Cyto stain [facility] Start: 08-01-2022 Antibody rubella Fran Barroso METALLURGICAL LABORATORY ASSISTANT - INVESTIGATION DIVISION SERGEANT Work Phone: Start: 06-02-2022 Gonadotropin chorion ic quantitative Mukul Foy MD Work Phone: Start: 08-10-2021 Gonadotropin chorion ic quantitative Berto Live METALLURGICAL LABORATORY ASSISTANT - CN Work Phone: Start: 11-25-2020 Us retroperitoneal r eal time w/image complete Lorena Ricks METALLURGICAL LABORATORY ASSISTANT - INVESTIGATION DIVISION SERGEANT Work Phone: Start: 05-04-2020 Antibody hiv-1&hiv-2 single result Ynes Rodriguez Work Phone: Start: 05-04-2020 Assay of thyroid sti mulating hormone tsh Ynes Rodriguez Work Phone: Start: 05-04-2020 Basic metabolic pane l calcium total Ynes Rodriguez Work Phone: Start: 05-04-2020 Blood count complete automated Ynes Rodriguez Work Phone: Start: 03-03-2020 Microscopic observat ion [Identifier] in Cervix by Cyto stain Ynes Rodriguez METALLURGICAL LABORATORY ASSISTANT - INVESTIGATION DIVISION SERGEANT Work Phone: Plan of Treatment Date Care Activity Detail Author Start: 07-15-2027 Screening for malign ant neoplasm of cervix Pap smear [facility] Start: 07-15-2026 Screening for malign ant neoplasm of cervix Pap smear [facility] Start: 08-07-2025 Depression Screen Depression Screen [facility] Start: 07-28-2025 End: 07-28-2025 Patient encounter procedure [facility] Start: 05-20-2025 Lipid panel Lipids [facility] Start: 05-14-2025 End: 05-14-2025 Patient encounter procedure 05/14/2025 2:50 PM EDT Routine DIANE SANTO [address] [place] [id number] Mukul Foy DO [address] [place] [address] [facility] Start: 05-14-2025 End: 05-14-2025 Patient encounter procedure 05/14/2025 11:40 AM EDT Office Visit [facility] [address] [place] [address] Dr Torres [address] [place] [address] Ynes Rodriguez, METALLURGICAL LABORATORY ASSISTANT - INVESTIGATION DIVISION SERGEANT [address] [place], [place] [id number] 6 month f/u [facility] Comment on above: 6 month f/u Start: 04-30-2025 End: 04-30-2025 Patient encounter procedure 04/30/2025 3:00 PM EDT Routine [facility] [address] [place] [id number] Ceasar Li, ASHWIN [address] [place] [phone] [facility] Start: 04-14-2025 End: 04-14-2025 Patient encounter procedure 04/14/2025 3:20 PM EDT Routine [facility] [address] [place] [id number] Virgil Barton, PA [address] [place] [address] [facility] Start: 04-03-2025 End: 04-03-2025 Patient encounter procedure 04/03/2025 3:30 PM EDT Routine [facility] [address] [place] [phone] Virgil Barton, PA [address] [place] [address] [facility] Start: 04-03-2025 End: 04-03-2026 CBC W Auto Differential panel - Blood CBC and differential Lab Routine Dizziness Anemia, unspecified type Expected: 04/03/2025 (Approximate), Expires: 04/03/2026 [facility] Comment on above: Expected: 04/03/2025 (Approximate), Expires: 04/03/2026 Start: 04-03-2025 End: 10-01-2025 US biophysical profile w non stress test US biophysical profile w non stress test Imaging Routine 28 weeks gestation of ([facility]) Third trimester ([facility]) Gestational diabetes mellitus (GDM), antepartum, gestational diabetes method of control unspecified ([facility]) History of miscarriage Expected: 04/03/2025 (Approximate), Expires: 10/01/2025 [facility] Comment on above: Expected: 04/03/2025 (Approximate), Expires: 10/01/2025 Start: 04-03-2025 End: 08-03-2025 US for US OB follow up transabdominal approach Imaging Routine 28 weeks gestation of ([facility]) Third trimester ([facility]) Gestational diabetes mellitus (GDM), antepartum, gestational diabetes method of control unspecified ([facility]) History of miscarriage Expected: 04/03/2025, Expires: 08/03/2025 [facility] Work Phone: Comment on above: Expected: 04/03/2025 , Expires: 08/03/2025 Start: 03-24-2025 Influenza vaccination [facility] Start: 02-21-2025 Influenza vaccination Flu vacc ine (Season Ended) [facility] Start: 02-11-2025 End: 02-11-2025 Patient encounter procedure 02/11/2025 2:10 PM EDT Routine [facility] [address] [place] [id number] Mukul Foy, DO [address] [place] [address] [facility] Start: 02-11-2025 End: 02-11-2025 Professional / ancillary services management 02/11/2025 1:00 PM EDT Ancillary Procedure [facility] [address] [place] [phone] [facility] Start: 01-15-2025 End: 01-15-2025 Patient encounter procedure 01/15/2025 3:50 PM EDT Routine [facility] [address] [place] [phone] Mukul Foy, DO [address] [place] [address] [facility] Start: 01-15-2025 End: 07-17-2025 Alpha fetoprotein, maternal Alpha fetoprotein, maternal Lab Routine Second trimester ([facility]) 17 weeks gestation of ([facility]) Expected: 01/15/2025 (Approximate), Expires: 07/17/2025 [facility] Comment on above: Expected: 01/15/2025 (Approximate), Expires: 07/17/2025 Start: 01-15-2025 End: 04-17-2025 US for US OB 14+ weeks anatomy scan Imaging Routine Screening, , for anatomic survey ([facility]) Expected: 01/15/2025, Expires: 04/17/2025 [facility] Comment on above: Expected: 01/15/2025 , Expires: 04/17/2025 Start: 12-18-2024 End: 12-18-2024 Patient encounter procedure 12/18/2024 3:40 PM EDT Routine [facility] [address] [place] [phone] Mukul Foy, DO [address] [place] [address] [facility] Start: 12-18-2024 End: 12-18-2025 CBC panel - Blood by Automated count CBC Lab Routine Diabetes mellitus screening Expected: 12/18/2024 (Approximate), Expires: 12/18/2025 [facility] [employer] Work Phone: Comment on above: Expected: 12/18/2024 (Approximate), Expires: 12/18/2025 Start: 12-18-2024 End: 12-18-2025 Measurement of glucose 1 hour after glucose challenge for glucose tolerance test Glucose tolerance, 1 hour Lab Routine Diabetes mellitus screening Expected: 12/18/2024 (Approximate), Expires: 12/18/2025 [facility] Comment on above: Expected: 12/18/2024 (Approximate), Expires: 12/18/2025 Start: 12-18-2024 End: 03-20-2025 US Pelvis transvaginal US OB transvaginal Imaging Routine Subchorionic hematoma in first trimester, single or unspecified fetus Expected: 12/18/2024, Expires: 03/20/2025 [facility] Work Phone: Comment on above: Expected: 12/18/2024 , Expires: 03/20/2025 Start: 11-14-2024 End: 11-14-2025 ABO/Rh ABO/Rh Lab Routine Missed menses , unspecified gestational age Expected: 11/14/2024 (Approximate), Expires: 11/14/2025 [facility] Comment on above: Expected: 11/14/2024 (Approximate), Expires: 11/14/2025 Start: 11-14-2024 End: 11-14-2025 Blood type and Indirect antibody screen panel - Blood Type and screen Lab Routine Missed menses , unspecified gestational age Expected: 11/14/2024 (Approximate), Expires: 11/14/2025 [facility] Comment on above: Expected: 11/14/2024 (Approximate), Expires: 11/14/2025 Start: 11-14-2024 End: 11-14-2025 Drugs of abuse panel - Urine by Screen method Rapid drug screen, urine Lab Routine , unspecified gestational age Encounter for supervision of normal first in first trimester Expected: 11/14/2024 (Approximate), Expires: 11/14/2025 [facility] Comment on above: Expected: 11/14/2024 (Approximate), Expires: 11/14/2025 Start: 11-06-2024 End: 02-05-2025 US Pelvis transvaginal US OB transvaginal Imaging Routine Missed menses Expected: 11/06/2024, Expires: 02/05/2025 [facility] Work Phone: Comment on above: Expected: 11/06/2024 , Expires: 02/05/2025 Start: 10-16-2024 End: 10-16-2024 Patient encounter procedure 10/16/2024 1:40 PM EDT Office Visit [facility] [address] [place] [address] [address] [place] [address] Ynes Rodriguez, METALLURGICAL LABORATORY ASSISTANT - INVESTIGATION DIVISION SERGEANT [address] [facility] [place] [address] Wellness [facility] Comment on above: Wellness Start: 08-03-2024 Depression Screen Depression Screen [facility] Start: 06-04-2024 End: 06-04-2024 Patient encounter procedure 06/04/2024 11:45 AM EST Office Visit [facility] [address] [place] [address] [address] [place] [address] Jose Cruz Raza MD [address] [place] [address] wt management [facility] Comment on above: wt management Start: 05-22-2024 End: 05-22-2024 Patient encounter procedure 05/22/2024 11:00 AM EDT Office Visit [facility] [address] [place] [address] [address] [place] [address] Ynes Rodriguez, METALLURGICAL LABORATORY ASSISTANT - INVESTIGATION DIVISION SERGEANT [address] [place], [place] [id number] LFT + HLD f/u(RS 10/17/23 appt) [facility] Comment on above: LFT + HLD f/u(RS 09/22 01/14 appt) Start: 03-24-2024 COVID-19 Vaccine ( season) COVID-19 Vaccine ( season) [facility] Start: 03-24-2024 COVID-19 Vaccine ( season) COVID-19 Vaccine ( season) [facility] Start: 03-24-2024 Influenza vaccination Influenza Vacc ine (#1) [facility] Start: 02-22-2024 Influenza vaccination Flu vaccine (# 1) [facility] Start: 03-03-2023 Screening for malign ant neoplasm of cervix [facility] Start: 11-09-2022 Depression Screen Depression Screen [facility] Start: 07-11-2022 End: 07-11-2022 Patient encounter procedure 07/11/2022 Office Visit Primary Care Ynes Rodriguez, METALLURGICAL LABORATORY ASSISTANT - INVESTIGATION DIVISION SERGEANT [address] [place] [address] [facility] Start: 05-19-2022 End: 05-19-2022 Patient encounter procedure 05/19/2022 Office Visit Obstetrics and Gynecology Berto Live, METALLURGICAL LABORATORY ASSISTANT - CNM [address] [place] [address] [facility] OBSTETRICS & [facility]YNECOLOGY [facility] Start: 03-18-2022 End: 03-18-2022 Patient encounter procedure 03/18/2022 Office Visit Family Medicine Ynes Rodriguez, METALLURGICAL LABORATORY ASSISTANT - INVESTIGATION DIVISION SERGEANT [address] [place] [address] [facility] FAMILY MEDICINE [facility] Start: 03-12-2022 Hepatitis C screening Hepatitis C sc [facility] Comment on above: Postponed from 09/09 (Patient Refused) Start: 02-21-2022 Influenza vaccination Flu vaccine (# 1) [facility] Start: 11-19-2021 Screening for Chlamy carlton trachomatis [facility] Start: 09-24-2021 Influenza vaccination Flu vacc ine (Season Ended) [facility] Work Phone: Comment on above: Postponed from 03/24 (Patient Refused) Start: 08-17-2021 Depression Monitoring Depression Mon rhiannon [facility] Start: 06-30-2021 COVID-19 Vaccine (3 - Booster for Pfizer series) COVID-19 Vaccine (3 - Booster for Pfizer series) [facility] Start: 06-19-2021 DTaP/Tdap/Td vaccine (7 - Td or Tdap) DTaP/Tdap/Td vaccine (7 - Td or Tdap) [facility] Start: 06-19-2021 DTaP/Tdap/Td vaccine (7 - Td) DTaP/Tdap/Td vaccine (7 - Td) [facility] [place] Start: 03-24-2021 Influenza vaccination Flu vaccine (# 1) [facility] Start: 03-03-2021 Screening for Chlamy carlton trachomatis Chlamydia screen [place], [place] Start: 02-23-2021 COVID-19 Vaccine (3 - Booster for Pfizer series) COVID-19 Vaccine (3 - Booster for Pfizer series) [facility] Start: 02-09-2021 End: 02-09-2021 Patient encounter procedure 02/09/2021 Office Visit Family Medicine Ynes Rodriguez, METALLURGICAL LABORATORY ASSISTANT - INVESTIGATION DIVISION SERGEANT [address] [place] [address] [phone] [facility] Start: 11-30-2020 End: 11-30-2020 Patient encounter procedure 11/30/2020 Office Visit Urology Chris Moe MD [address] [facility], [address] [place] [address] [phone] [facility] Start: 05-28-2020 End: 05-28-2020 Telemedicine 05/28/2020 Telemedicine Family Medicine Ynes Rodriguez, METALLURGICAL LABORATORY ASSISTANT - INVESTIGATION DIVISION SERGEANT [address] [place] [address] [phone] [facility] Start: 03-24-2020 Influenza vaccination Flu vaccine (# 1) [place], [place] Start: 02-22-2020 Screening for Chlamy carlton trachomatis Chlamydia screen [place], [place] Start: 2019 Screening for malign ant neoplasm of cervix Cervical cancer screen [place], [place] Start: 2016 Hepatitis C screening Hepatitis C sc katiesigrid [facility] Start: 2014 COVID-19 Vaccine (1) COVID-19 Vaccin e (1) [facility] Phone: Start: 2013 HIV screening HIV screen [place], [place] Start: 1998 Hepatitis C screening Hepatitis C sc katien [facility] [employer] [facility] Phone: Bacteria identified in Urine by Culture Urine culture Microbiology Routine Missed menses Ordered: 11/14/2024 [facility] Comment on above: Ordered: 11/14/2024 Bacteria identified in Urine by Culture Urine culture Microbiology Routine UTI symptoms Ordered: 04/03/2025 [facility] Comment on above: Ordered: 04/03/2025 End: 03-03-2020 C.trachomatis N.gonorrhoeae DNA, Thin Prep C.trachomatis N.gonorrhoeae DNA, Thin Prep Microbiology Routine Encounter for annual routine gynecological examination 1 Occurrences starting 03/03/2020 until 03/03/2020 [facility] [place] Comment on above: 1 Occurrences starti ng 03/03/2020 until 03/03/2020 C.trachomatis N.gonorrhoeae DNA, Thin Prep C.trachomatis N.gonorrhoeae DNA, Thin Prep Microbiology Routine Encounter for annual routine gynecological examination 03/03/2020 5:08 PM EDT [place], [place] CBC W Auto Different ial panel - Blood CBC and differential Lab Routine Missed menses , unspecified gestational age Ordered: 11/14/2024 [facility] Comment on above: Ordered: 11/14/2024 CHLAMYDIA TRACHOMATI S (GENITO/STI) CHLAMYDIA TRACHOMATIS (GENITO/STI) Lab Routine STD exposure Ordered: 01/15/2025 [facility] Comment on above: Ordered: 01/15/2025 Cytology Cervical or vaginal smear or scraping study Pap Smear Pathology and Cytology Routine Well woman exam with routine gynecological exam Ordered: 07/15/2024 [facility] Work Phone: Comment on above: Ordered: 07/15/2024 End: 03-03-2020 Cytopathology procedure, preparation of smear, genital source PAP SMEAR Lab Routine Screening for cervical cancer 1 Occurrences starting 03/03/2020 until 03/03/2020 [facility] [place] Comment on above: 1 Occurrences starti ng 03/03/2020 until 03/03/2020 Hemoglobin A1c/Hemoglobin.total in Blood Hemoglobin A1c Lab Routine Missed menses , unspecified gestational age Ordered: 11/14/2024 [facility] Comment on above: Ordered: 11/14/2024 Hepatitis B virus surface Ag [Presence] in Serum or Plasma by Immunoassay Hepatitis B surface antigen Lab Routine Missed menses , unspecified gestational age Ordered: 11/14/2024 [facility] Comment on above: Ordered: 11/14/2024 Hepatitis C virus Ab [Presence] in Serum or Plasma by Immunoassay Hepatitis C antibody Lab Routine Missed menses , unspecified gestational age Ordered: 11/14/2024 [facility] Comment on above: Ordered: 11/14/2024 HIV-1/HIV-2 antigen/antibody combination immunoassay HIV-1 and HIV-2 antibodies Lab Routine Missed menses , unspecified gestational age Ordered: 11/14/2024 [facility] Comment on above: Ordered: 11/14/2024 Neisseria gonorrhoea e DNA [Presence] in Unspecified specimen by ANISA with probe detection Neisseria gonorrhea DNA probe, direct Lab Routine STD exposure Ordered: 01/15/2025 [facility] Comment on above: Ordered: 01/15/2025 Reagin Ab [Presence] in Serum by RPR RPR Lab Routine Missed menses , unspecified gestational age Ordered: 11/14/2024 [facility] Comment on above: Ordered: 11/14/2024 Rubella antibody, IgG Rubella an tibody, IgG Lab Routine Missed menses , unspecified gestational age Ordered: 11/14/2024 [facility] Comment on above: Ordered: 11/14/2024 SURESWAB(R) ADVANCED VAGINITIS PLUS, TMA SURESWAB(R) ADVANCED VAGINITIS PLUS, TMA Pathology and Cytology Routine Vaginal discharge Ordered: 01/15/2025 [facility] Work Phone: Comment on above: Ordered: 01/15/2025 US Pelvis transvaginal US OB tra nsvaginal Imaging Routine Missed menses 11/14/2024 2:38 PM EDT [facility] End: 12-20-2024 Us uterus 14 wk transabdl 07/24 gestat Wilmer Brown [employer] Work Phone: Comment on above: 1 Occurrences starti ng 12/20/2024 until 12/20/2024 Immunizations Immunization Date Immunization Notes Care Provider Fa hilton 12-29-2020 COVID-19, Pfizer Pur ple top, DILUTE for use, 12+ yrs, 30mcg/0.3mL dose Ynes Rodriguez METALLURGICAL LABORATORY ASSISTANT - INVESTIGATION DIVISION SERGEANT Work Phone: [employer] Phone: 12-07-2020 COVID-19, Pfizer Pur ple top, DILUTE for use, 12+ yrs, 30mcg/0.3mL dose Ynes Rodriguez METALLURGICAL LABORATORY ASSISTANT - [facility] Work Phone: [facility] 09-20-2017 human papilloma viru s vaccine, quadrivalent [facility], [place] 05-01-2017 human papilloma viru s vaccine, quadrivalent [facility], [place] 02-24-2017 human papilloma viru s vaccine, quadrivalent [facility], [place] 03-11-2016 meningococcal polysaccharide (groups A, C, Y and W-135) diphtheria toxoid conjugate vaccine (MCV4P) [facility], [place] 2014 meningococcal ACWY vaccine, unspecified formulation [facility] 08-19-2011 Hepatitis A Ped/Adol (Vaqta) [facility], [place] 08-19-2011 hepatitis A vaccine, pediatric/adolescent dosage, 2 dose schedule Ynes Rodriguez METALLURGICAL LABORATORY ASSISTANT - [facility] Work Phone: [facility] Work Phone: 06-19-2011 tetanus toxoid, redu saundra diphtheria toxoid, and acellular pertussis vaccine, adsorbed [facility], [place] 02-09-2011 Hepatitis A Ped/Adol (Vaqta) [facility], [place] 02-09-2011 hepatitis A vaccine, pediatric/adolescent dosage, 2 dose schedule Ynes Rodriguez METALLURGICAL LABORATORY ASSISTANT [facility] Work Phone: [facility] Work Phone: 02-09-2011 varicella virus vaccine [facility], [place] 01-12-2011 meningococcal polysaccharide (groups A, C, Y and W-135) diphtheria toxoid conjugate vaccine (MCV4P) [facility], [place] 11-20-2003 diphtheria, tetanus toxoids and acellular pertussis vaccine [facility], [place] 11-20-2003 measles, mumps and rubella virus vaccine [facility] 11-20-2003 poliovirus vaccine, inactivated [facility] 03-13-2000 diphtheria, tetanus toxoids and acellular pertussis vaccine [facility], [place] 03-13-2000 haemophilus influenz ae type b vaccine, PRP-T conjugate [facility] 03-13-2000 poliovirus vaccine, inactivated [facility] 12-22-1999 measles, mumps and rubella virus vaccine [facility] 12-22-1999 varicella virus vaccine [facility], [place] 06-09-1999 hepatitis B vaccine, pediatric or pediatric/adolescent dosage [facility], [place] 03-12-1999 diphtheria, tetanus toxoids and acellular pertussis vaccine [facility], [place] 03-12-1999 haemophilus influenz ae type b vaccine, PRP-T conjugate [facility], [place] 01-18-1999 diphtheria, tetanus toxoids and acellular pertussis vaccine [facility], [place] 01-18-1999 haemophilus influenz ae type b vaccine, PRP-T conjugate [facility], [place] 01-18-1999 poliovirus vaccine, inactivated [facility] 1998 haemophilus influenz ae type b vaccine, PRP-T conjugate [facility], [place] 1998 poliovirus vaccine, inactivated [facility] 1998 diphtheria, tetanus toxoids and acellular pertussis vaccine [facility] 1998 hepatitis B vaccine, pediatric or pediatric/adolescent dosage [facility], [place] 1998 hepatitis B vaccine, pediatric or pediatric/adolescent dosage [facility] Payers Date Payer Category Payer Unknown [facility] [id number] 2022-Present [address] [place] [address] Indemnity [id number] 2022 Private Health Insurance [employer] [id number] 1998 Unknown [id number] 2.16.840.1.230622.3.579.2. 900 1998 Unknown [id number] 2.16.840.1.430501.3.579.2. 900 1998 Unknown [id number] 2.16.840.1.230143.3.579.2. 900 1998 Unknown [id number] 2.16.840.1.893401.3.579.2. 900 1998 Unknown [id number] 2.16.840.1.837876.3.579.2. 593 1998 Unknown [id number] 2.16.840.1.531577.3.579.2. 593 1998 Unknown [id number] 2.16.840.1.601417.3.579.2. 593 1998 Unknown [id number] 2.16.840.1.548448.3.579.2. 593 1998 Unknown [id number] 2.16.840.1.775338.3.579.2. 593 1998 Unknown [id number] 2.16.840.1.626539.3.579.2. 593 1998 Unknown [id number] 2.16.840.1.066698.3.579.2. 593 1998 Unknown [id number] 2.16.840.1.329900.3.579.2. 593 1998 Unknown [id number] 2.16.840.1.972471.3.579.2. 593 1998 Unknown [id number] 2.16.840.1.679181.3.579.2. 593 1998 Unknown [id number] 2.16.840.1.706547.3.579.2. 593 1998 Unknown [id number] 2.16.840.1.470369.3.579.2. 593 1998 Unknown [id number] 2.16.840.1.831290.3.579.2. 593 1998 Unknown [id number] 2.16.840.1.781191.3.579.2. 593 1998 Unknown [id number] 2.16.840.1.349636.3.579.2. 173 1998 Unknown [id number] 2.16.840.1.732517.3.579.2. 173 1998 Unknown [id number] 2.16.840.1.317105.3.579.2. 173 1998 Unknown [id number] 2.16.840.1.360145.3.579.2. 173 1998 Unknown [id number] 2.16.840.1.998520.3.579.2. 173 1998 Unknown [id number] 2.16.840.1.445028.3.579.2. 1259 1998 Unknown [id number] 2.16.840.1.928983.3.579.2. 1259 1998 Unknown [id number] 2.16.840.1.571007.3.579.2. 1259 1998 Unknown [id number] 2.16.840.1.190391.3.579.2. 9 1998 Unknown [id number] 2.16.840.1.913760.3.579.2. 9 1998 Unknown [id number] 2.16.840.1.094706.3.579.2. 9 1998 Unknown [id number] 2.16.840.1.294864.3.579.2. 9 1998 Unknown [id number] 2.16.840.1.122003.3.579.2. 9 1998 Unknown [id number] 2.16.840.1.529191.3.579.2. 1258 1998 Unknown [id number] 2.16.840.1.767092.3.579.2. 9 1998 Unknown [id number] 2.16.840.1.171779.3.579.2. 9 1998 Unknown [id number] 2.16.840.1.061389.3.579.2. 1259 1959 Self-pay 1959 Unknown [id number] 1.2.840.132131.1.13.239.2. 7.3.857938.315 1959 Unknown [id number] 1959 Unknown [id number] Unknown [id number] 2.16.840.1.747263.3.579.2. 593 Social History Date Type Detail Facility Start: 03-03-2020 End: 12-31-2022 Tobacco smoking status NHIS Never smoker [place] Start: 03-03-2020 End: 12-31-2022 Tobacco use and exposure Never used [place] Start: 03-03-2020 End: 05-12-2021 Alcohol intake Current drinker of alcohol (finding) [place] Start: 06-19-2017 Alcohol Comment social [facility] [place] Start: 1998 Sex Assigned At Not on file [place] Start: 05-01-2020 End: 03-08-2022 History SDOH Financial 5 [place] Start: 05-01-2020 End: 03-08-2022 History SDOH Food Worry 1 [place], [place] Start: 05-01-2020 History SDOH Transpo rt Med 2 [place] Exposure to SARS-CoV -2 (event) Not sure [facility] Start: 05-01-2024 End: 11-12-2024 Alcoholic beverage intake [facility] Start: 05-01-2024 End: 11-14-2024 History of Social function [facility] Start: 05-01-2024 End: 11-14-2024 Tobacco use panel [facility] How hard is it for y ou to pay for the very basics like food, housing, medical care, and heating Not hard at all [facility] (I/We) worried wherosemary er (my/our) food would run out before (I/we) got money to buy more. Never true [facility] Start: 1998 [facility] at [facility] Start: 05-20-2024 Gender identity Identifies as female gender (finding) [facility] Start: 07-05-2023 End: 04-30-2025 Alcoholic beverage intake Lifetime non-drinker (finding) [facility] Start: 09-30-2024 CRISPINS [facility] Has the electric, ga s, oil, or water company threatened to shut off services in your home in past 12Mo No [employer] Start: 09-02-2012 Sex Female (finding) [facility] [employer] Medical Equipment Procedure Code Equipment Code Equipment Origin al Text Equipment Identifier Dates Use as instructed [id number] Start: 01-15-2025 End: 01-15-2026 Inject 1 each un tino the skin Daily [id number] Start: 04-07-2025 End: 07-16-2025 Goals Date Patient [...] UTI 11/30/2020 23 weeks gestation of ([facility]) 02/26/2025 Elevated blood sugar level 02/26/2025 Resolved Ambulatory Problems Diagnosis Date Noted Missed period 01/13/2023 Past Medical History: Diagnosis Date GDM (gestational diabetes mellitus) ([facility]) HISTORY PAST MEDICAL HISTORY SOCIAL HISTORY Past Medical History: Diagnosis Date GDM (gestational diabetes mellitus) ([facility]) Social History Tobacco Use Smoking status: [...] nursing note reviewed. Exam conducted with a last chalker present. Vitals: Estimated body mass index is 36.7 kg/m as calculated from the following: Height as of 01/30/23: 5' 6 . Weight as of this encounter: 227 lb 6.4 oz. BP: 110/70 Patient's last menstrual period was 09/16/2024. ASSESSMENT & PLAN ICD-10-CM 1. Third trimester ([facility]) Z34.93 2. 32 weeks gestation of ([facility]) Z3A.32 POCT urinalysis dipstick manually resulted [...] Ceasar Li NP documented in this encounter [facility] 04-14-2025 History of Present illness Narrative Reason [...] UTI 11/30/2020 23 weeks gestation of ([facility]) 02/26/2025 Elevated blood sugar level 02/26/2025 Resolved Ambulatory Problems Diagnosis Date Noted Missed period 01/13/2023 Past Medical History: Diagnosis Date GDM (gestational diabetes mellitus) ([facility]) HISTORY PAST MEDICAL HISTORY SOCIAL HISTORY Past Medical History: Diagnosis Date GDM (gestational diabetes mellitus) ([facility]) Social History Tobacco Use Smoking status: [...] ASSESSMENT & PLAN ICD-10-CM 1. Third trimester ([facility]) Z34.93 POCT urinalysis dipstick manually resulted 2. 30 weeks gestation of ([facility]) Z3A.30 Return OB: Patient presents today [...] of: JOSEPH Bowie documented in this encounter [facility] 04-03-2025 History of Present illness Narrative Reason [...] UTI 11/30/2020 23 weeks gestation of ([facility]) 02/26/2025 Elevated blood sugar level 02/26/2025 Resolved Ambulatory Problems Diagnosis Date Noted Missed period 01/13/2023 Past Medical History: Diagnosis Date GDM (gestational diabetes mellitus) ([facility]) HISTORY PAST MEDICAL HISTORY SOCIAL HISTORY Past Medical History: Diagnosis Date GDM (gestational diabetes mellitus) ([facility]) Social History Tobacco Use Smoking status: [...] PLAN ICD-10-CM 1. 28 weeks gestation of ([facility]) Z3A.28 POCT urinalysis dipstick manually resulted US OB follow up transabdominal approach US biophysical profile w non stress test 2. Third trimester ([facility]) Z34.93 POCT urinalysis dipstick manually resulted US OB follow up transabdominal approach US biophysical profile w non stress test 3. Dizziness R42 CBC and differential CBC and differential 4. Gestational diabetes mellitus (GDM), antepartum, gestational diabetes method of control unspecified ([facility]) O24.419 US OB follow up transabdominal [...] of: JOSEPH Bowie documented in this encounter [facility] 03-12-2025 History of Present illness Narrative [...] UTI 11/30/2020 23 weeks gestation of ([facility]) 02/26/2025 Elevated blood sugar level 02/26/2025 Resolved Ambulatory Problems Diagnosis Date Noted Missed period 01/13/2023 Past Medical History: Diagnosis Date GDM (gestational diabetes mellitus) ([facility]) No family history on file. Social [...] nursing note reviewed. Exam conducted with a last chalker present. Vitals: Estimated body mass index is 36.12 kg/m as calculated from the following: Height as of 01/30/23: 5' 6 . Weight as of this encounter: 223 lb 12.8 oz. BP: 100/70 Patient's last menstrual period was 09/16/2024. Assessment/Plan Encounter Diagnosis: ICD-10-CM 1. 25 weeks gestation of ([facility]) Z3A.25 POCT urinalysis dipstick manually resulted 2. Second trimester ([facility]) Z34.92 POCT urinalysis dipstick manually resulted [...] Mukul Foy DO documented in this encounter [facility] 02-26-2025 History of Present illness Narrative [...] UTI 11/30/2020 23 weeks gestation of ([facility]) 02/26/2025 Elevated blood sugar level 02/26/2025 Resolved Ambulatory Problems Diagnosis Date Noted Missed period 01/13/2023 Past Medical History: Diagnosis Date GDM (gestational diabetes mellitus) ([facility]) HISTORY PAST MEDICAL HISTORY SOCIAL HISTORY Past Medical History: Diagnosis Date GDM (gestational diabetes mellitus) ([facility]) Social History Tobacco Use Smoking status: [...] nursing note reviewed. Exam conducted with a last chalker present. Vitals: Estimated body mass index is 35.96 kg/m as calculated from the following: Height as of 01/30/23: 5' 6 . Weight as of this encounter: 222 lb 12.8 oz. BP: 110/70 Patient's last menstrual period was 09/16/2024. ASSESSMENT & PLAN ICD-10-CM 1. 23 weeks gestation of ([facility]) Z3A.23 POCT urinalysis dipstick manually resulted [...] Mukul Foy DO documented in this encounter [facility] 02-11-2025 History of Present illness Narrative [...] Diagnosis Date GDM (gestational diabetes mellitus) ([facility]) HISTORY PAST MEDICAL HISTORY SOCIAL HISTORY Past Medical History: Diagnosis Date GDM (gestational diabetes mellitus) ([facility]) Social History Tobacco Use Smoking status: [...] ASSESSMENT & PLAN ICD-10-CM 1. Second trimester ([facility]) Z34.92 metFORMIN XR (Glucophage-XR) 500 MG 24 hr tablet POCT urinalysis dipstick manually resulted 2. 20 weeks gestation of ([facility]) Z3A.20 metFORMIN XR (Glucophage-XR) 500 MG [...] Mukul Foy DO documented in this encounter [facility] 01-15-2025 History of Present illness Narrative [...] Diagnosis Date GDM (gestational diabetes mellitus) ([facility]) HISTORY PAST MEDICAL HISTORY SOCIAL HISTORY Past Medical History: Diagnosis Date GDM (gestational diabetes mellitus) ([facility]) Social History Tobacco Use Smoking status: [...] nursing note reviewed. Exam conducted with a last chalker present. Vitals: Estimated body mass index is 34.19 kg/m as calculated from the following: Height as of 01/30/23: 5' 6 . Weight as of this encounter: 211 lb 12.8 oz. BP: 118/72 Patient's last menstrual period was 09/16/2024. ASSESSMENT & PLAN ICD-10-CM 1. Second trimester ([facility]) Z34.92 Alpha fetoprotein, maternal Alpha fetoprotein, maternal 2. 17 weeks gestation of ([facility]) Z3A.17 Alpha fetoprotein, maternal Alpha fetoprotein, maternal 3. Vaginal discharge N89.8 SURESWAB(R) ADVANCED VAGINITIS PLUS, TMA 4. STD exposure Z20.2 CHLAMYDIA TRACHOMATIS (GENITO/STI) Neisseria gonorrhea DNA probe, direct 5. Screening, , for anatomic survey ([facility]) Z36.89 US OB 14+ weeks anatomy scan 6. Gastroesophageal reflux in ([facility]) O99.619 omeprazole (PriLOSEC) [address] capsule K21.9 7. Gestational diabetes mellitus (GDM), antepartum, gestational diabetes method of control unspecified ([facility]) O24.419 glucose blood test strip Return [...] virgil barton, pac documented in this encounter [facility] 12-18-2024 History of Present illness Narrative [...] by JOSEPH Bowie documented in this encounter [facility] 11-14-2024 History of Present illness Narrative [...] Nurse Note: Patient uncertain of doing the [place] screening. Pt was advised both labs and [...] or undercooked meat, and stay away from [facility]. Patient has also been advised to [...] Elizabeth Ware MA documented in this encounter [facility] 07-15-2024 History of Present illness Narrative [...] nursing note reviewed. Exam conducted with a last chalker present. Vitals: Estimated body mass index is [...] Mukul Foy DO documented in this encounter [facility] 08-06-2023 Note HNO ID: [id number] Author: LANG CARREON APRN.INVESTIGATION DIVISION SERGEANT Service: ? Author Type: Nurse Practitioner Type: Progress Notes Filed: 08/06/2023 10:44 Note Text: Telemedicine Visit - Distance Health Virtual Visit Note I have communicated my name and active licensure. The patient's identity and physical location were verified at the time of this visit. Either the patient or their legal energy conservation representative has been informed of the risks and benefits of -- and alternatives to -- treatment through a remote evaluation and consents to proceed with the evaluation remotely. Patient seen on virtual platforms, [employer]. Location of patient: [place] History of Presenting Illness: Vinny Downey 22 [...] - Sleep with head elevated due to [id number] increases cough - Continue Flonase - Flonase: [...] recent labs Rajendra [place] MD Cardiac Electrophysiology [facility] 07-11-2023 Note Patient here for [facility] low up event monitor. Echo was [...] - [facility] - 30-day event [...] site not specified documented in this encounter [employer] Phone: evaluation note* Diagnosis Amenorrhea Absence of menstruation documented in this encounter [employer] Phone: evaluation note* Diagnosis Elevated liver enzymes Nonspecific elevation of levels of transaminase or lactic acid dehydrogenase (LDH) Mixed hyperlipidemia documented in this encounter [employer] note* Diagnosis Well woman exam with routine gynecological exam Routine gynecological examination documented in this encounter [facility] [employer] [facility]* Diagnosis Missed menses 8 weeks gestation of , unspecified gestational age Encounter for supervision of normal first in first trimester History of miscarriage Personal history of other genital system and obstetric disorders documented in this encounter [facility] [employer] [facility]* Diagnosis Second trimester state, incidental 12 weeks gestation of Subchorionic hematoma in first trimester, single or unspecified fetus Diabetes mellitus screening Screening for diabetes mellitus documented in this encounter [facility] [employer] [facility]* Diagnosis Subchorionic hematoma, antepartum, first trimester, not applicable or unspecified fetus documented in this encounter [employer] [facility] [employer] [facility] Diagnosis Second trimester ([facility]) state, incidental 17 weeks gestation of ([facility]) Vaginal discharge Leukorrhea, not specified as infective STD exposure Screening, , for anatomic survey ([facility]) Encounter for anatomic survey Gastroesophageal reflux in ([facility]) Gestational diabetes mellitus (GDM), antepartum, gestational diabetes method of control unspecified ([facility]) documented in this encounter [facility] HealthcareEvaluation note* Diagnosis Second trimester ([facility]) state, incidental 20 weeks gestation of ([facility]) documented in this encounter [facility] HealthcareEvaluation note* Diagnosis 23 weeks gestation of ([facility]) Elevated blood sugar level Other abnormal glucose Gastroesophageal reflux disease without esophagitis Esophageal reflux documented in this encounter [facility] HealthcareEvaluation note* Diagnosis 25 weeks gestation of ([facility]) Second trimester ([facility]HS-HCC) state, incidental Gastroesophageal reflux disease without esophagitis Esophageal reflux documented in this encounter [facility] HealthcareEvaluation note* Diagnosis 28 weeks gestation of ([facility]) Third trimester ([facility] state, incidental Dizziness Dizziness and giddiness Gestational diabetes mellitus (GDM), antepartum, gestational diabetes method of control unspecified ([facility]) History of miscarriage Personal history of other genital system and obstetric disorders Anemia, unspecified type UTI symptoms documented in this encounter [facility] HealthcareEvaluation note* Diagnosis Third trimester ([facility]HS-HCC) state, incidental 30 weeks gestation of ([facility]) documented in this encounter [facility] HealthcareEvaluation note* Diagnosis Third trimester ([facility]-H[facility]) state, incidental 32 weeks gestation of ([facility]) documented in this encounter [facility] HealthcareReason for visit Narrative* Imaging (Routine) - Open Specialty Diagnoses / Procedures Referred By Ever winslow Referred To Contact Radiology Diagnoses Subchorionic hematoma, antepartum, first trimester, not applicable or unspecified fetus Procedures US OB LESS THAN 14 WEEKS SINGLE OR FIRST GESTATION W DOPPLER US OB TRANSVAGINAL Mukul Foy MD [address] [place] [address] Phone: tel: Referral ID Status Reason Start Date Expiration Date Visits Re quested Visits Authorized [id number] Open 12/19/2024 12/19/2025 1 1 [facility] Assessments Diagnosis Screening for cervical cancer Screening for malignant neoplasm of the cervix Encounter for annual routine gynecological examination Diagnosis Encounter for screening for HIV Other fatigue Wellness examination Advance Directives No Advanced Directives Records FoundDocuments on File Type Date Recorded 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 Expl 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 Advance Directives and Living Will Power of Warehouse Operator Documents on File Type Date Recorded 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 Expl 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 ACP-Advance Directive ACP-Power of Warehouse Operator Documents on File Type Date Recorded 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 Expl 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 ACP-Advance Directive ACP-Power of Warehouse Operator Summary Purpose Family History No Family History Records FoundNo Family History Records FoundNo Family History Records FoundNo Family History Records FoundNo Family History Records FoundNo Family History Records FoundNo Family History Records Found Reason for Referral Status Reason Specialty Diagnoses / Procedures Referre d By Contact Referred To Contact Closed Radiology Diagnoses Frequent UTI Procedures US RENAL COMPLETE Lorena Ricks, METALLURGICAL LABORATORY ASSISTANT - INVESTIGATION DIVISION SERGEANT [address] [place] [address] Additional Source Comments INFORMATION SOURCE (unrecogn ized section and content) DATE CREATED AUTHOR 10/14/2020 [facility] DATE CREATED AUTHOR AUTHOR'S ORGANIZ ATION 09/26/2021 [facility] DATE CREATED AUTHOR AUTHOR'S ORGANIZ ATION 12/30/2022 [facility] DATE CREATED AUTHOR AUTHOR'S ORGANIZ ATION 08/03/2023 [facility] DATE CREATED AUTHOR AUTHOR'S ORGANIZ ATION 08/07/2023 [facility] DATE CREATED AUTHOR AUTHOR'S ORGANIZ ATION 01/09/2025 [facility] DATE CREATED AUTHOR AUTHOR'S ORGANIZ ATION 05/03/2025 [facility] EPIC Reason for Visit (unrecogniz ed section and content) Status Reason Specialty Diagnoses / Procedures Referre d By Contact Referred To Contact Closed Radiology Diagnoses Frequent UTI Procedures US RENAL COMPLETE Lorena Ricks, METALLURGICAL LABORATORY ASSISTANT - INVESTIGATION DIVISION SERGEANT [address] [place] [address] Reason Comments Gynecologic Exam Reason Comments Amenorrhea Reason Comments Routine Visit Reason Comments Routine Visit STI Screening Care Teams (unrecognized sec tion and content) Devulcanizer Operator Relationship Specialty Start Date End Date Ynes Rodriguez, METALLURGICAL LABORATORY ASSISTANT - INVESTIGATION DIVISION SERGEANT [address] [place] [address] PCP - General Family Nurse Practitioner 05/04/20 Devulcanizer Operator Relationship Specialty Start Date End Date Ynes Rodriguez, METALLURGICAL LABORATORY ASSISTANT - INVESTIGATION DIVISION SERGEANT [address] [place] [address] PCP - General Family Nurse Practitioner 05/04/20 Devulcanizer Operator Relationship Specialty Start Date End Date Ynes Rodriguez, METALLURGICAL LABORATORY ASSISTANT - INVESTIGATION DIVISION SERGEANT [address] [place] [address] PCP - General Family Nurse Practitioner 08/02/22 Devulcanizer Operator Relationship Specialty Start Date End Date Ynes Rodriguez, METALLURGICAL LABORATORY ASSISTANT - INVESTIGATION DIVISION SERGEANT [address] [place] [address] PCP - General Family Nurse Practitioner 08/02/22 Devulcanizer Operator Relationship Specialty Start Date End Date Ynes Rodriguez, METALLURGICAL LABORATORY ASSISTANT - INVESTIGATION DIVISION SERGEANT [address] [place] [address] PCP - General Family Nurse Practitioner 08/02/22 [...] BE BASED ON THE PRIMARY CLINICAL RECORDS. [employer] provides no warranty or guarantee of the accuracy or completeness of information in this document.
[2025-05-12 10:02] VITALS: BP 110/70; PULSE 85
[2025-05-12 10:39] LABS: Glucose Urine UA NEGATIVE (NEGATIVE)
[2025-05-12 10:53] LABS: Cast Seen? NONE SEEN #/LPF (NONE SEEN); Crystals Seen? None Seen #/HPF (None Seen); Urine Culture Indicated YES-LC
== END 2025-05-12 11:59 | disposition home or self-care (01) ==
PROVIDERS: Admitting Provider Obstetrics & Gynecology; PCP Nurse Practitioner Women's Health; Visit Provider Obstetrics & Gynecology
DX: O47.03 False labor before 37 completed weeks of gestation, third trimester (principal); Z3A.34 34 weeks gestation of pregnancy
CPT/HCPCS: 59025; 81001; 87086; G0378; G0379

== ENCOUNTER 2025-05-14 15:50 | Outpatient (OUT) | payer OTHER, SELFPAY ==
--- OUTSIDE RECORDS SUMMARY | 2025-04-30 15:00 | XMS_ITS | Encounter Summary ---
Author Organization [facility] Address [address] [place] [address] Care Team Providers Care Draw Bench Operator Name Role Phone Unavailable Primary Care Provider Unavailabl e Reason for Visit * ReasonCommentsRoutine Visit Encounter Details DateTypeDepartmentCare Team (Latest Contact Info)Hfuwxyjycjh47/08/2025 3:00 PM EDTRoutine [facility] [address] [address] Tiffany Li, ASHWIN [address] [facility] [place] [address] Third trimester ([facility]); 32 weeks gestation of ([facility]) Social History Tobacco UseTypesPacks/DayYears UsedDateSmoking Tobacco: NeverSmokeless Tobacco: NeverAlcohol UseStandard Drinks/WeekCommentsNever0 (1 standard drink = 0.6 oz pure alcohol)Estimated Date of IwwlvgfyHfaqjfygIzs53/01/2025Based on last menstrual period of 09/16/2024Sex and Gender InformationValueDate Recorded Sex Assigned at BirthNot on fileLegal FdbQnmflh94/15/2023 11:47 PM EDTGender IdentityNot on fileSexual OrientationNot on filedocumented as of this encounter Last Filed Vital Signs Vital SignReadingTime TakenCommentsBlood Dgujlcjb592/7010 3:11 PM EDT Pulse--Temperature--Respiratory Rate--Oxygen Saturation--Inhaled Oxygen Concentration--Nrgntb913 kg (227 lb 6.4 oz)04/30/2025 3:11 PM [...] Frequent UTI 11/30/2020 23 weeks gestation of ([facility]) 02/26/2025 Elevated blood sugar level 02/26/2025 Resolved Ambulatory Problems Diagnosis Date Noted Missed period 01/13/2023 Past Medical History: Diagnosis Date GDM (gestational diabetes mellitus) ([facility]) HISTORY PAST MEDICAL HISTORY SOCIAL HISTORY Past Medical History: Diagnosis Date GDM (gestational diabetes mellitus) ([facility]) Social History Tobacco Use Smoking status: Never [...] nursing note reviewed. Exam conducted with a cattle brander present. Vitals: Estimated body mass index is 36.7 kg/m?? as calculated from the following: Height as of 01/30/23: 5' 6 . Weight as of this encounter: 227 lb 6.4 oz. BP: 110/70 Patient's last menstrual period was 09/16/2024. ASSESSMENT & PLAN ICD-10-CM 1. Third trimester ([facility]) Z34.93 2. 32 weeks gestation of ([facility]) Z3A.32 POCT urinalysis dipstick manually resulted Return [...] Plan of Treatment DateTypeDepartmentCare Team (Latest Contact Info)Izhhfbzwmfg76/05/2025 2:00 PM ESTAncillary Procedure [facility] [address] [place] [address] [place] [phone] 05/28/2025 2:30 PM ESTRoutine [facility] [address] [place] [phone] Regina Barton PA [address] [facility] [facility] [place] [address] 07/28/2025 4:00 PM ESTOffice Visit [facility] S[facility] [address] [place] [address] [place] [address] Mukul Foy DO [address] [facility] [address] [place], [place] [phone] documented as of this encounter Goals GoalPatient Goal TypeAssociated ProblemsRecent ProgressPatient-Stated?Author Reminders Care PlanOB RemindersNoOpen Scheduling, Backgrounddocumented as of this encounter Procedures Procedure NamePriorityDate/TimeAssociated DiagnosisCommentsPOCT URINALYSIS VEVGVDNBJotjhtm07/08/2025 3:19 PM EDT 32 weeks gestation of ([facility]) documented in this encounter Results * (ABNORMAL) POCT urinalysis dipstick manually resulted (04/30/2025 3:19 PM EDT) ComponentValueRef RangeTest MethodAnalysis TimePerformed AtPathologist SignatureColor, UAYellowClarity, UAClearGlucose, UANegativeNegative - 2000(110) ++++ mg/dLBilirubin, UANegativeNegative - 4(70) +++ mg/dLKetones, UA NegativeNegative - 160(16) ++++ mg/dLSpec Grav, UA1.0101 - 1.03Blood, UA NegativeNegative - 50 Yunior/mcLpH, UA6.55 - 9Protein, UANegativeNegative - 1999(20) ++++ mg/dLUrobilinogen, UA2.00.2 - 12 mg/dLLeukocytes, UA1+Negative - 500+++ Trip/mcLNitrite, UANegativeNegative - PositiveSpecimen (Source) Anatomical Location / LateralityCollection Method / VolumeCollection Time Received ZlfpDembi35/08/2025 3:19 PM EDT Narrative Authorizing ProviderResult TypeResult StatusTiffany Li NPPOINT OF CARE TEST ENTER/EDIT ORDERABLESFinal Result documented in this encounter Visit Diagnoses Diagnosis Third trimester ([facility]) state, incidental 32 weeks gestation of ([facility]) documented in this encounter Additional Health Concerns Active ProblemsNoted DateDiagnosed DateOB Xuaaejqar70/09/2025 documented as of this encounter
--- OUTSIDE RECORDS SUMMARY | 2025-05-14 14:50 | XMS_ITS | Encounter Summary ---
Author Organization [facility] Address [address] [place] [address] Care Team Providers Care Linen Sorter Name Role Phone Unavailable Primary Care Provider Unavailabl e Reason for Visit * ReasonCommentsRoutine Visit Encounter Details DateTypeDepartmentCare Team (Latest Contact Info)Qsxkyxldxuc16/22/2025 2:50 PM EDTRoutine [facility] [address] [place] [address] Mukul Foy DO [address] [facility] [address] [place], [place] [phone] Third trimester ([facility]); 34 weeks gestation of ([facility]); Insulin controlled gestational diabetes mellitus (GDM) during , antepartum ([facility]); Gestational diabetes mellitus (GDM), antepartum, gestational diabetes method of control unspecified([facility]) Social History Tobacco UseTypesPacks/DayYears UsedDateSmoking Tobacco: NeverSmokeless Tobacco: NeverAlcohol UseStandard Drinks/WeekCommentsNever0 (1 standard drink = 0.6 oz pure alcohol)Estimated Date of UknykosyUwpvybfxWek48/01/2025Based on last menstrual period of 09/16/2024Sex and Gender InformationValueDate Recorded Sex Assigned at BirthNot on fileLegal SdcDkyehb26/15/2023 11:47 PM EDTGender IdentityNot on fileSexual OrientationNot on filedocumented as of this encounter Last Filed Vital Signs Vital SignReadingTime TakenCommentsBlood Gtfnnhag940/7005/14/2025 3:05 PM EDT Pulse--Temperature--Respiratory Rate--Oxygen Saturation--Inhaled Oxygen Concentration--Uvizxi626 kg (232 lb 1.9 oz)05/14/2025 3:05 PM EDTHeight--Body Mass Index37.4707/04/2023 12:12 PM EDTdocumented in this encounter Plan of Treatment DateTypeDepartmentCare Team (Latest Contact Info)Hcuqndkzxwm22/05/2025 2:00 PM ESTAncillary Procedure [facility] [place] [facility] [address] [place] [phone] 05/28/2025 2:30 PM ESTRoutine NOM[facility]zo SANTO [address] [place] [phone] Regina Barton PA [address] [place] [address] 07/28/2025 4:00 PM ESTOffice Visit DIANE SANTO [address] [place] [phone] Mukul Foy DO [address] [facility] [address] [place], [place] [phone] NameTypePriorityAssociated DiagnosesOrder ScheduleUS OB follow up transabdominal approachImagingRoutine Insulin controlled gestational diabetes mellitus (GDM) during , antepartum ([facility]) Expected: 05/14/2025, Expires: 09/14/2025documented as of this encounter Goals GoalPatient Goal TypeAssociated ProblemsRecent ProgressPatient-Stated?Author Reminders Care PlanOB RemindersNoOpen Scheduling, Backgrounddocumented as of this encounter Procedures Procedure NamePriorityDate/TimeAssociated DiagnosisCommentsPOCT URINALYSIS XHPONGQMOricaby83/22/2025 3:13 PM EDT 34 weeks gestation of ([facility]) documented in this encounter Results * POCT [...] antepartum, gestational diabetes method of control unspecified([facility]) documented in this encounter Additional Health Concerns Active ProblemsNoted DateDiagnosed DateOB Tmmosmfcz45/09/2025 documented as of this encounter
--- NOTE | 2025-05-14 15:53 | US_ITS ---
[address] [address] Patient Name: VINNY HERRERA MRN: [id number] date: 2000 Sex: F Assigned Patient Location: [place] Current Patient Location: [facility] Accession/Order Number: [id number] Exam Date: 05/14/2025 16:00 Report Date: 05/14/2025 22:20 At the request of: BRITT HOLDER DO Procedure: US OB BPP w non-stress Ultrasound biophysical profile INDICATION: Gestational diabetes COMPARISON: 05/07/2025 FINDINGS/IMPRESSION:: Fetus cephalic position. 8/8 score biophysical profile. heart rate 1:30 beats per minutes. JAMAL 17.4 cm . Impression dictated by: Chevy Moreland M.D. 05/14/2025 10:20 PM Dictation Location: [place] [address] Electronically authenticated by: [id number] Y Date: 05/14/2025 22:20
--- OUTSIDE RECORDS SUMMARY | 2025-05-14 15:56 | XMS_ITS | CCD ---
Author Organization [facility] CliniSymn Care Team Providers Care Datacap Developer Name Role Phone Jannette Peña I Primary Care Provider [phone] Ynes Rodriguez Primary Care Provider Fede LUX Ynes ANDRES Primary Care Provide r LAW, MUKUL R Admitting Unavailable LAW, MUKUL R Primary Care Unavailable LAW, MUKUL R Admitting Unavailable LAW, MUKUL R Primary Care Unavailable LAW, MUKUL R Admitting Unavailable LAW, MUKUL R Primary Care Unavailable BERTO LIVE Admitting Unavailabl e LAW, MUKUL R Primary Care Unavailable Fede INVESTIGATIONS MANAGER - IUSS ACOUSTIC ANALYST, Ynes Conner Primary Care Provide r Unavailable Primary Care Provider Unavailabl e LAW ., DR DE LA TORRE Attending Unavailable MISC, DR YAÑEZ Primary Care Unavailable TOPSFIELD, DR YELENA Henao Consulting Unavailable LAW ., [...] LA TORRE Consulting Unavailable LAW ., DR ED LA TORRE Attending Unavailable LAW ., DR DE LA TORRE Admitting Unavailable MISC, DR YAÑEZ Primary Care Unavailable ZIEBER, DR LUIS ALFREDO Forbes Consulting Unavailable ORALIA ., REGINA Consulting Unavailable ORALIA ., REGINA Attending Unavailable ORALIA ., REGINA Admitting Unavailable MISC, DR YAÑEZ Primary Care Unavailable ORALIA ., REGINA Consulting Unavailable ORALIA ., REGINA Attending Unavailable MISC, DR YAÑEZ Primary Care Unavailable ORALIA ., REGINA Admitting Unavailable LAW ., DR [...] Unavailable MISC, DR YAÑEZ Primary Care Unavailable TOPSFIELD, DR YELENA Henao Consulting Unavailable ALW ., DR DE LA TORRE Attending Unavailable [...] FOY Attending Unavailable MUKUL FOY Attending Unavailable REGINA BARTON Attending Unavailable REGINA BARTON Attending Unavailable CEASAR LI Attending Unavailable Medications Current Medications MedicationDrug Class(es)DatesSig (Normalized)Sig (Original)atorvastatin 10 mg oral tablet (1 source)HMG-CoA Reductase InhibitorStart: 91-74-3055fjdq 1 tablet by mouth once dailyatorvastatin (LIPITOR) 10 MG tablet Take 1 tablet by mouth daily 30 tablet 5 02/20/2024 Activecephalexin 500 mg oral capsule (4 sources)Cephalosporin AntibacterialStart: 04-03-2025 End: 55-36-3597ftzv 1 capsule by mouth in the morning, then take 1 capsule by mouth in the evening, then take 1 capsule by mouth at bedtimecephalexin (Keflex) 500 MG capsule Indications: UTI symptoms Take 1 capsule (500 mg) by mouth in the morning and 1 capsule (500 mg) in the evening and 1 capsule (500 mg) before bedtime. Do all this for 7 days. 21 capsule 04/03/2025 04/10/2025 Active cetirizine hydrochloride 10 mg oral tablet (8 sources)Histamine-1 Receptor AntagonistStart: 21-92-6283dyxo 1 tablet by mouth once dailycetirizine (ZYRTEC) 10 MG tablet Take 1 tablet by mouth daily 90 tablet 3 03/12/2021 ActiveStart: 49-82-0913ouxp 1 tablet by mouth once daily cetirizine (ZYRTEC) 10 MG tablet Take 1 tablet by mouth daily 90 tablet 3 06/29/2020 Activedrospirenone 4 mg oral tablet (1 source)ProgestinStart: 11-54-4906nwda 1 tablet by mouth once daily Drospirenone (SLYND) 4 MG TABS Indications: Irregular menses Take 1 tablet by mouth daily 84 tablet4 05/12/2021 Activedrospirenone 3 mg / ethinyl estradiol 0.03 mg oral tablet (9 sources)Progestin, EstrogenStart: 96-42-8930DMZKR 3-0.03 MG TABS Indications: Irregular menses TAKE 1 TABLET DAILY 84 tablet 0 05/03/2021 ActiveStart: 46-09-8341zivh 1 tablet by mouth once dailydrospirenone-ethinyl estradiol (CHANDANA 28) 3-0.03 MG TABS Indications: Irregular menses Take 1 tablet by mouth daily 3 packet 4 03/03/2020 ActiveEthinyl Estradiol / Ferrous fumarate / Norethindrone (6 sources)EstrogenStart: 54-21-9624IWHNQ FE 24 1-20 MG-MCG(24) TABS Indications: DUB (dysfunctional uterine bleeding) TAKE 1 TABLET DAILY 84 tablet 1 08/27/2018 ActiveStart: 66-52-6678tmuk 1 tablet by mouth once dailyNorethin David-Eth Estrad-FE 1-20 MG-MCG(24) TABS Indications: Irregular menses Take 1 tablet by mouth daily 28 tablet 12 05/04/2018 ActiveStart: 96-30-0538subj 1 tablet by mouth once dailyNorethin David-Eth Estrad-FE ( 24) 1-20 MG- MCG(24) TABS Indications: Irregular menses Take 1 tablet by mouth daily 84 tablet 3 07/21/2017 Activefexofenadine / Pseudoephedrine (2 sources)alpha-Adrenergic Agonist, Histamine-1 Receptor Antagonist Fexofenadine-Pseudoephedrine (JOSÉ MIGUEL-D PO) Take by mouth 0 Activefluconazole 150 mg oral tablet (1 source)Azole AntifungalStart: 99-23-6452ytwk 1 tablet by mouth once daily as neededfluconazole (DIFLUCAN) 150 MG tablet Indications: Vaginal yeast infection Take 1 tablet by mouth daily as needed (yeast) 1 tablet 11 03/24/2020 Active fluticasone propionate 0.05 mg/actuat metered dose nasal spray (5 sources)Corticosteroidfluticasone (FLONASE) 50 MCG/ACT nasal spray 1 spray by Each Nare route daily 0 Active3 ml insulin glargine 100 unt/ml pen injector (7 sources)Insulin AnalogStart: 04-07-2025 End: 73-45-6482ggprlw 10 [IU] by subcutaneous injection at bedtimeinsulin glargine (Lantus SoloStar) 100 UNIT/ML pen Indications: Hyperglycemia Inject 10 Units underthe skin at bedtime FILL ACCORDING TO INSURANCE COVERAGE 3 mL 04/07/2025 05/07/2025 Activeloratadine 10 mg oral capsule (2 sources)take 1 capsule by mouth once dailyloratadine (CLARITIN) 10 MG capsule Take 10 mg by mouth daily 0 Echzbi37 hr metFORMIN hydrochloride 500 mg extended release oral tablet (20 sources)BiguanideStart: 02-11-2025 End: 99-48-2509zsfp 2 tablets by mouth every twenty-four hours at mealtime metFORMIN XR (Glucophage-XR) 500 MG 24 hr tablet Indications: Second trimester (HHS-HCC) , 20 weeks gestation of (HHS-HCC) Take 2 tablets (1,000 mg) by mouth in the evening. Take with meals 60 tablet 5 02/11/2025 08/10/2025 ActiveStart: 11-05-2024 End: 52-96-8193uqkw 1 tablet by mouth every twenty-four hours in the morning metFORMIN XR (Glucophage-XR) 500 MG 24 hr tablet Take 1,000 mg by mouth in the morning and 1,000 mgin the evening. 11/05/2024 02/11/2025 Discontinued (Reorder) Start: 11-05-2024 End: 36-08-4405djlVYRZNO (GLUCOPHAGE-XR) 500 MG extended release tablet Indications: BMI 37.0-37.9, adult , Class 2 obesity with body mass index (BMI) of 37.0 to 37.9 in adult, unspecified obesity type, unspecifiedwhether serious comorbidity present TAKE 2 TABLETS BY MOUTH IN THE MORNING AND AT BEDTIME 120 tablet 5 11/05/2024 05/04/2025 ActiveStart: 04-26-2024 End: 51-79-2942zeoURXXWB (GLUCOPHAGE-XR) 500 MG extended release tablet Indications: BMI 37.0-37.9, adult , Class 2 obesity with body mass index (BMI) of 37.0 to 37.9 in adult, unspecified obesity type, unspecifiedwhether serious comorbidity present Take 2 tablets by mouth in the morning and at bedtime 360 tablet 1 04/26/2024 10/23/2024 Activemetoclopramide 10 mg oral tablet (14 sources)Dopamine-2 Receptor AntagonistStart: 03-12-2025 End: 64-00-2628orhcperribiqvy (Reglan) 10 MG tablet Indications: Gastroesophageal reflux disease without esophagitis Take 1 tablet (10 mg) by mouth in the morning and 1 tablet (10 mg) at noon and 1 tablet (10 mg) in the evening. Take before meals. Take 1 tablet by mouth 30 minutes prior to meals 3 times daily as needed for nausea. 90 tablet 3 03/12/2025 Activenitrofurantoin, macrocrystals 50 mg oral capsule (4 sources)Nitrofuran AntibacterialStart: 55-44-1044gqpe 1 capsule by mouth once dailynitrofurantoin (MACRODANTIN) 50 MG capsule Indications: Recurrent UTI Take 1 capsule by mouth nightly 30 capsule 0 03/03/2020 Activepantoprazole 40 mg delayed release oral tablet (17 sources)Proton Pump InhibitorStart: 02-26-2025 End: 27-28-6580feph 1 tablet by mouth before mealtimepantoprazole (Protonix) 40 MG EC tablet Indications: 23 weeks gestation of ([facility]) , Elevated blood sugar level , Gastroesophageal reflux disease without esophagitis Take 1 tablet (40 mg)by mouth in the morning. Take before meals. Do not crush, chew, or split. 30 tablet 11 02/26/2025 02/26/2026 Activephentermine hydrochloride 37.5 mg oral tablet (1 source)Sympathomimetic Amine AnorecticStart: 05-01-2024 End: 69-41-0545svhh 37-37.9 tablets by mouth once dailyphentermine (ADIPEX-P) 37.5 MG tablet Indications: Mixed hyperlipidemia , BMI 37.0-37.9, adult , Class 2 obesity with body mass index (BMI) of 37.0 to 37.9 in adult, unspecified obesity type, unspecified whether serious comorbidity present Take 1 tablet by mouth every morning (before breakfast) for30 days. Max Daily Amount: 37.5 mg 30 tablet 05/01/2024 05/31/2024 Activepolysaccharide iron complex 391 mg oral capsule (12 sources)Start: 04-02-2025 End: 50-79-9299rlyl 1 capsule by mouth once dailyiron polysaccharides (ProFe) 391.3 (180 Fe) MG capsule Indications: Dizziness Take 1 capsule (391.3mg) by mouth Daily 30 capsule 6 04/02/2025 05/02/2025 ActiveProbiotic Product (PROBIOTIC ADVANCED PO) (6 sources)Probiotic Product (PROBIOTIC ADVANCED PO) Take by mouth Active Probiotic Product (PROBIOTIC ADVANCED PO) Take by mouth 0 ActiveProgesterone (1 source)ProgesteroneStart: 92-99-2391Yjeuyqxfsirq [address] 200 mg vaginally nightly 10/16/2024 ActiveProgesterone 200 MG suppository (2 sources)Start: 11-14-2024 End: 71-27-4225Bleuajnqlute 200 MG suppository Indications: History of miscarriage Insert 200 mg into the vagina at bedtime Insert suppository vaginally every night at bedtime until 12 weeks gestation 30 suppository 2 11/14/2024 12/14/2024 ActiveStart: 10-16-2024 End: 60-74-3721Tyzfaudfjwpo 200 MG suppository Indications: History of miscarriage Insert 200 mg into the vagina at bedtime Insert suppository vaginally every night at bedtime until 12 weeks gestation 30 suppository 3 10/16/2024 11/14/2024 Discontinued (Reorder)sertraline 25 mg oral tablet (20 sources)Serotonin Reuptake InhibitorStart: 09-22-4971hzal 1 tablet by mouth once dailysertraline (ZOLOFT) 25 MG tablet Take 1 tablet by mouth daily 30 tablet 5 11/12/2024 ActiveStart: 02-76-2324ydkv 1 tablet by mouth once daily in the morningsertraline (Zoloft) 50 MG tablet Indications: Anxiety, generalized TAKE 1 TABLET BY MOUTH EVERY DAYIN THE MORNING 30 tablet 3 10/25/2024 Active Start: 54-72-2141zlpp 1 tablet by mouth once daily in the morningsertraline (Zoloft) 50 MG tablet Indications: Anxiety, generalized (CMS/HCC) TAKE 1 TABLET BY MOUTHEVERY DAY IN THE MORNING 30 tablet 3 06/27/2024 ActiveStart: 10-17-2023 take 1 tablet by mouth once dailysertraline (ZOLOFT) 50 MG tablet Indications: Anxiety Take 1 tablet by mouth daily 30 tablet 10/17/2023 ActiveStart: 01-46-7298koxl 1 tablet by mouth once dailysertraline (ZOLOFT) 25 MG tablet Indications: Anxiety Take 1 tablet by mouth daily 90 tablet 3 03/29/2022 Active Start: 19-26-6402fdvv 1 tablet by mouth once dailysertraline (ZOLOFT) 25 MG tablet Take 1 tablet by mouth daily 90 tablet 3 03/12/2021 ActiveStart: 14-91-1679vlxr 1 tablet by mouth once dailysertraline (ZOLOFT) 50 MG tablet Take 1 tablet by mouth daily 30 tablet 2 08/17/2020 Activesulfamethoxazole 800 mg / trimethoprim 160 mg oral tablet (2 sources)Dihydrofolate Reductase Inhibitor Antibacterial, Sulfonamide AntimicrobialStart: 12-04-8336eawh 1 tablet by mouth every twelve hours sulfamethoxazole-trimethoprim (BACTRIM DS;SEPTRA DS) 800-160 MG per tablet TAKE 1 TABLET BY MOUTH EVERY 12 HOURS FOR 7 DAYS 0 02/24/2020 ActiveTirzepatide (MOUNJARO) 2.5 MG/0.5ML SOPN SC injection (1 source)Start: 74-44-2343Bhveubfbcvx (MOUNJARO) 2.5 MG/0.5ML SOPN SC injection Indications: Mixed hyperlipidemia , BMI 37.0-37.9, adult , Class 2 obesity with body mass index (BMI) of 37.0 to 37.9 in adult, unspecified obesity type, unspecified whether serious comorbidity present Inject 0.5 mLs into the skin once a week 4 mL 1 05/01/2024 ActivetraZODone hydrochloride 50 mg oral tablet (1 source)Serotonin Reuptake InhibitorStart: 71-10-7754owzg 0.5 tablet by mouth once dailytraZODone (DESYREL) 50 MG tablet Take 0.5 tablets by mouth nightly 30 tablet 2 05/01/2020 Active Completed/Discontinued Medications MedicationDrug Class(es)DatesSig (Normalized)Sig (Original)norethindrone 0.35 mg oral tablet (2 sources)Start: 03-10-2023 End: 01-48-6281eokz 1 tablet by mouth in the morningnorethindrone (Micronor) 0.35 MG tablet Indications: General counseling and advice on contraceptive management Take 1 tablet (0.35 mg) by mouth in the morning. 28 tablet 11 03/10/2023 07/15/2024 Discontinued (Therapy completed)omeprazole 20 mg delayed release oral capsule (8 sources)Proton Pump InhibitorStart: 01-15-2025 End: 46-37-6732fjjh 1 capsule by mouth before mealtimeomeprazole (PriLOSEC) [address] capsule Indications: Gastroesophageal Reflux Disease , Heartburn Take 1 capsule (20 mg) by mouth in the morning. Take before meals. Do not crush or chew. 30 capsule 3 01/15/2025 02/26/2025 Discontinued (Formulary change) Problems Active Problems Problem ClassificationProblemDateDocumented DateEpisodic/Chronic Administrative/social admission (4 sources)Dietary counseling and surveillance; Translations: [DIETARY COUNSELING AND SURVEILLANCE]Onset: 04-00-3856YpquaviePxtebvf disorders (20 sources)Anxiety; Translations: [Anxiety disorder, unspecified]Onset: 327249-96-3378VziobkqOmpdjeoawm associated with dizziness or vertigo (2 sources)Dizziness; Translations: [Dizziness and giddiness]41-57-8868Sfxqzqrp Deficiency and other anemia (2 sources)Anemia; Translations: [Anemia, unspecified]58-44-6954AjkmdjjeEhlqeilq mellitus without complication (20 sources)Other abnormal glucose; Translations: [Abnormal glucose level]Onset: 25-60-1440CvtnihzfZpigslct or abnormal glucose tolerance complicating ; childbirth; or the puerperium (8 sources)Gestational diabetes mellitus in , unspecified control; Translations: [Gestational diabetes mellitus complicating ]Onset: 181450-72-3988FytlmcgbLayeclijs of lipid metabolism (7 sources)Mixed hyperlipidemia; Translations: [Mixed hyperlipidemia]Onset: 416379-52-2249XlctamdGiaubjpdkw disorders (6 sources)Gastroesophageal reflux disease; Translations: [Gastro-esophageal reflux disease without esophagitis]Onset: hronic Genitourinary symptoms and ill-defined conditions (2 sources)Urinary symptoms ; Translations: [Unspecified symptoms and signs involving the genitourinary system]56-71-9214YbnbclcdRkkbfnywse during ; abruptio placenta; placenta previa (1 source)Other antepartum hemorrhage, first trimester; Translations: [Other antepartum hemorrhage, first trimester]Onset: 80-94-4675QosohzrbIobxnnqiekrbb and screening for infectious disease (4 sources)Encounter for screening for infections with a predominantly sexual mode of transmission; Translations: [Encounter for screening for human papillomavirus (HPV)]Onset: 187470-64-4696WhinjilqUjndcinnutobp mental health disorders (20 sources)Insomnia disorder related to another mental disorder; Translations: [Insomnia due to other mental disorder]Onset: 05-02-2020 Resolved: 526667-55-1745EhfjiyjQadvm complications of (4 sources)Maternal care for excessive growth, third trimester, not applicable or unspecified; Translations: [MAT CARE EXCSS FT GR 3RD TRI UNS] Onset: 73-57-1350PogqozhsOudpw complications of (3 sources)Maternal care for excessive growth, unspecified trimester, not applicable or unspecified; Translations: [MAT CARE EXCSS FTL GRTH UNS TRI UNS] Onset: 65-94-9950YohiozhpOhmra complications of (2 sources)Gastroesophageal reflux disease in ; Translations: [Diseases of the digestive system complicating , unspecified trimester] 03-37-6221HqgtosqqEfwzb female genital disorders (20 sources)Pain in female genitalia on intercourse; Translations: [Unspecified dyspareunia]Onset: 11-30-2020 Resolved: 882842-29-6764EytqdcmFelic female genital disorders (2 sources)Vaginal discharge; Translations: [Other specified noninflammatory disorders of vagina]11-07-6435AzgsjgitZrtol injuries and conditions due to external causes (4 sources)Encounter for examination and observation following other accident; Translations: [ENC EXAM AND OBSERVATION FOLLOW OTH ACC]Onset: 00-50-2408Blzerbel Other liver diseases (3 sources)Steatosis of liver; Translations: [Fatty (change of) liver, not elsewhere classified]Onset: 943837-49-5236AbmnzveXrpmm nutritional; endocrine; and metabolic disorders (1 source)Body mass index 30+ - obesity; Translations: [Body mass index (BMI) 37.0-37.9, adult]Onset: 132049-91-1828MhbmhopJnuov nutritional; endocrine; and metabolic disorders (3 sources)Obesity; Translations: [Class 2 obesity with body mass index (BMI) of 37.0 to 37.9 in adult]Onset: 418383-22-6306FuzlzvnFyuos and delivery including normal (20 sources)Encounter for supervision of normal , unspecified, unspecified trimester; Translations: [ state, incidental]Onset: 88-07-2808JbnngvaeFbksf screening for suspected conditions (not mental disorders or infectious disease) (20 sources)Encounter for other screening follow-up; Translations: [Encounter for screening, unspecified]Onset: 57-26-6257UjjpxukhHwwre upper respiratory disease (8 sources)Seasonal allergic rhinitis; Translations: [Other seasonal allergic rhinitis]Onset: 007532-59-3534AounslmPmljlyyolwcawc and other problems of amniotic cavity (4 sources)Subchorionic hematoma; Translations: [Other specified disorders of amniotic fluid and membranes, first trimester, not applicable or unspecified] Onset: 251805-15-5796MhmnnqweThexrpma codes; unclassified (1 source)34 weeks gestation of ; Translations: [34 WEEKS GESTATION OF ]Onset: 34-37-6344FugwgmeoRtrvhnpv codes; unclassified (1 source)33 weeks gestation of ; Translations: [33 WEEKS GESTATION OF ]Onset: 90-95-7317SlmfnffcLycminys codes; unclassified (1 source)Gestation period, 8 weeks; Translations: [8 weeks gestation of ]71-84-5864BuvcwwmiRgkqiynm codes; unclassified (3 sources)H/O: miscarriage; Translations: [Personal history of other complications of , childbirth and the puerperium]51-38-6046Pblmripy Residual codes; unclassified (2 sources)Gestation period, 12 weeks; Translations: [12 weeks gestation of ]63-03-1943WxltevyfSktfbyfj codes; unclassified (2 sources)Gestation period, 17 weeks; Translations: [17 weeks gestation of ]63-57-9081TccvlgpfQwauxzrm codes; unclassified (2 sources)Gestation period, 20 weeks; Translations: [20 weeks gestation of ]32-12-5252OaeczglxZjeqgzkm codes; unclassified (19 sources)Gestation period, 23 weeks; Translations: [23 weeks gestation of ]Onset: 595333-32-2937TlssphpuHfphdwgt codes; unclassified (2 sources)Gestation period, 25 weeks; Translations: [25 weeks gestation of ]97-84-6238EkssppcrXqusbbtn codes; unclassified (2 sources)Gestation period, 28 weeks; Translations: [28 weeks gestation of ]88-64-3251NhehdawiYiwtppny codes; unclassified (2 sources)Gestation period, 30 weeks; Translations: [30 weeks gestation of ]86-53-2953SvwdtfwsGwtwffpi codes; unclassified (2 sources)Gestation period, 32 weeks; Translations: [32 weeks gestation of ]60-17-2316FqmbundrNgqteviqstyp (1 source)Cancer cervix screening status; Translations: [Screening for cervical cancer]Unclassified (3 sources)Patient encounter status; Translations: [Encounter for annual routine gynecological examination]Unclassified (20 sources)OB RemindersOnset: 449266-10-6097 Past or Other Problems Problem ClassificationProblemDateDocumented DateEpisodic/ChronicCardiac dysrhythmias (2 sources)Palpitations; Translations: [Palpitations]Onset: 36-34-6623Jetmdeji Deficiency and other anemia (3 sources)Iron deficiency anemia; Translations: [Iron deficiency anemia, unspecified]Onset: 948394-87-6049WyrzmatbMsefsifcsf and other anemia (1 source)Iron deficiency anemia, unspecified; Translations: [Iron deficiency anemia, unspecified]Onset: 81-24-8364LgjsbhnrMvsyjax and fatigue (20 sources)Fatigue; Translations: [Other fatigue]Onset: EpisodicMenstrual disorders (20 sources)Amenorrhea; Translations: [Amenorrhea, unspecified]Onset: 06-23-2022 Resolved: 75-74-4948SseeezjRyjmz disorders of stomach and duodenum (20 sources)Indigestion; Translations: [Functional dyspepsia]Onset: 01-13-2023 11-27-7780AvelrfoeGnwfe female genital disorders (4 sources)Other specified noninflammatory disorders of vagina; Translations: [OTH SPEC NONINFLAMMATORY D/O VAGINA]Onset: 41-55-6863RwqpminaYynui gastrointestinal disorders (20 sources)Heartburn; Translations: [Heartburn]Onset: EpisodicOther liver diseases (4 sources)Elevated liver enzymes level; Translations: [Abnormal levels of other serum enzymes]Onset: 836180-59-0722TapbrideEtftn liver diseases (1 source)Abnormal levels of other serum enzymes; Translations: [Abnormal levels of other serum enzymes]Onset: 22-30-5331SlbawuypIapnn skin disorders (3 sources)Acne; Translations: [Acne, unspecified]Onset: 10-17-2023 Resolved: 392948-35-7772IdqcmqeaGbihb upper respiratory infections (2 sources)Sore throat symptom; Translations: [Acute pharyngitis, unspecified] Onset: 09-10-2024 Resolved: 981881-40-1539NcoicpblUfgyvbxc codes; unclassified (1 source)Family history of other diseases of the digestive system; Translations: [Family history of other diseases of the digestive system]Onset: 35-90-8783BpvhnegxBcgynvs tract infections (20 sources)Recurrent urinary tract infection; Translations: [Urinary tract infection, site not specified]Onset: 11-30-2020 Resolved: 75-98-4904Aqljanra Results Test NameValueInterpretationReference RangeFacilityUS OB BPP W NON-STRESS on 68-40-1463[place] [address] Ultrasound Report Signed Patient: VINNY DOWNEY MR#: [id number] : 2000 Acct:[id number] Age/Sex: 24 / F ADM Date: 04/30/25 Loc: US Attending Dr: Mukul Foy D.O. Ordering Physician: Mukul Foy D.O. Date of Service: 04/30/25 Procedure(s): US OB BPP w non-stress Accession Number(s): [id number] cc: Mukul Foy D.O.; Ynes Rodriguez NP [address] [address] Patient Name: VINNY DOWNEY MRN: [id number] date: 2000 Sex: F Assigned Patient Location: [facility] Current Patient Location: Accession/Order Number: [id number] Exam Date: 04/30/2025 15:57 Report Date: 04/30/2025 22:59 At the request of: MUKUL FOY DO Procedure: US OB BPP w non-stress Ultrasound biophysical profile INDICATION: Gestational diabetes COMPARISON: 04/05/2025 FINDINGS/IMPRESSION:: Fetus cephalic position. 02/28 score biophysical profile. heart rate 145 beats per minutes. JAMAL 12.7 cm. Impression dictated by: Chevy Moreland M.D. 04/30/2025 10:59 PM Dictation Location: [place] [address] Electronically authenticated by: [id number] Y Date: 04/30/2025 22:59 Dictated By: Chevy Moreland M.D. Signed By: 04/30/252301 DD/ 58 TD/TT: Life Cycle Assessment Analyst:MILYHRadiology, Radiologist, - 04/30/2025 [place] [address] Ultrasound Report Signed Patient: VINNY DOWNEY MR#: [id number] : 2000 Acct:[id number] Age/Sex: 24 / F ADM Date: 04/30/25 Loc: US Attending Dr: Mukul Foy D.O. Ordering Physician: Mukul Foy D.O. Date of Service: 04/30/25 Procedure(s): US OB BPP w non-stress Accession Number(s): [id number] cc: Mukul Foy D.O.; Ynes Rodriguez NP The [address] [address] Patient Name: VINNY DOWNEY MRN: [id number] date: 2000 Sex: F Assigned Patient Location: [facility] Current Patient Location: Accession/Order Number: [id number] Exam Date: 04/30/2025 15:57 Report Date: 04/30/2025 22:59 At the request of: MUKUL FOY DO Procedure: US OB BPP w non-stress Ultrasound biophysical profile INDICATION: Gestational diabetes COMPARISON: 04/05/2025 FINDINGS/IMPRESSION:: Fetus cephalic position. 02/28 score biophysical profile. heart rate 145 beats per minutes. JAMAL 12.7 cm. Impression dictated by: Chevy Moreland M.D. 04/30/2025 10:59 PM Dictation Location: [place] [address] Electronically authenticated by: [id number] Y Date: 04/30/2025 22:59 Dictated By: Chevy Moreland M.D. Signed By: 04/30/252301 DD/ 58 TD/TT: Life Cycle Assessment Analyst: DIANE HealthcareRadiology Study observation (narrative)NOMS HealthcareUS OB BPP W NON-STRESSOrdered By: Radiologist Radiology on 33-97-2029WNRISSM [facility] Work Phone: Urinalysis macro (dipstick) panel (U)on 04-30-2025 Bilirubin, UANegativeNegative - 4(70) +++ mg/dLNOMS HealthcareBlood, UANegative Negative - 50 Yunior/mcLNOMS HealthcareClarity, UAClearNOMS HealthcareColor, UA YellowNOMS HealthcareGlucose, UANegativeNegative - 1999(110) ++++ mg/dLNOMS HealthcareInterpretation and review of laboratory resultsAbnormalNOMS Healthcare Ketones, UANegativeNegative - 160(16) ++++ mg/dLNOMS HealthcareLeukocytes, UA1+ Negative - 500+++ Trip/mcLNOMS HealthcareNitrite, UANegativeNegative - Positive NOMS HealthcarepH, UA6.55 - 9NOMS HealthcareProtein, UANegativeNegative - 1999(20) ++++ mg/dLNOMS HealthcareSpec Grav, UA1.011 - 1.03N[facility]S Healthcare Urobilinogen, UA2.00.2 - 12 mg/dLNOMS HealthcareNOMS HealthcareUrinalysis macro (dipstick) panel (U)on 20-04-9488Zasgwxlch, UANegativeNegative - 4(70) +++ mg/dL NOMS HealthcareBlood, UANegativeNegative - 50 Yunior/mcLNOMS HealthcareClarity, UA ClearNOMS HealthcareColor, UAYellowNOMS HealthcareGlucose, UANegativeNegative - 2000(110) ++++ mg/dLNOTN HealthcareInterpretation and review of laboratory resultsNormalNOTN HealthcareKetones, UANegativeNegative - 160(16) ++++ mg/dLNOTN HealthcareLeukocytes, UANegativeNegative - 500+++ Trip/mcLNOMS HealthcareNitrite, UANegativeNegative - PositiveNOMS HealthcarepH, UA6.55 - 9N[facility] Healthcare Protein, UANegativeNegative - 2000(20) ++++ mg/dLNOMS HealthcareSpec Grav, UA 1.0051 - 1.03NOMS HealthcareUrobilinogen, UA0.20.2 - 12 mg/dLNOTN HealthcareNOMS HealthcareALL CBC WITH AUTO DIFFon 69-01-5380SJSXLYKIP ABSOLUTE VSJM6TPIE HealthcareBasophils/100 WBC (Bld)0.2 %0.2 - 2.0 %NOMS HealthcareEosinophils/100 WBC (Bld)1.1 %0.9 - 7.0 %NOMS HealthcareErythrocyte distribution width (RBC) [Ratio]12.8 %11.0 - 15.0 %NOMS HealthcareHematocrit (Bld) [Volume fraction]30.7 %Low36.0 - 48.0 %NOMS HealthcareHemoglobin (Bld) [Mass/Vol]10.3 g/dLLow12.0 - 16.0 g/dLNOTN HealthcareIMMATURE GRANULOCYTES ABS AUTO0.04HighNOMS Healthcare Immature granulocytes/100 WBC (Bld)0.4 %0.0 - 0.5 %NOMS HealthcareInterpretation and review of laboratory resultsAbnormalNOTN HealthcareLYMPHOCYTES ABSOLUTE AUTO1.9NOMS HealthcareLymphocytes/100 WBC (Bld)17.1 %Low20.5 - 60.0 %[facility] HospitalH (RBC) [Entitic mass]29.7 pg26.7 - 34.0 pgMercy McCune-Brooks HospitalHC (RBC) [Mass/Vol]33.6 g/dL29.9 - 35.2 g/dLMercy McCune-Brooks HospitalV (RBC) [Entitic vol]88.5 fL 81.0 - 99.0 fLSSM DePaul Health CenterMONOCYTES ABSOLUTE AUTO0.7[facility] Monocytes/100 WBC (Bld)6.5 %1.7 - 12.0 %[facility] CenterNEUTROPHILS ABSOLUTE AUTO 8.2HighNOTN HealthcareNeutrophils/100 WBC (Bld)74.7 %43.0 - 75.0 %[facility] Health CenterPlatelet mean volume (Bld) [Entitic vol]8.7 fLLow9.5 - 13.5 fLSSM DePaul Health CenterTBH EO #0.1NOMS HealthcareTBH [id number] [facility] North HospitalTB RBC3.47LowNOMercy Hospital South, formerly St. Anthony's Medical CenterTB HXH36ECDT HealthcareCLINISYNCNOMS HealthcareUS OB GROWTHon 20-17-4[address] [address] Ultrasound Report Signed Patient: VINNY DOWNEY MR#: [id number] : 2000 Acct:[id number] Age/Sex: 24 / F ADM Date: 04/05/25 Loc: US Attending Dr: Regina Barton Ordering Physician: Regina Barton Date of Service: 04/05/25 Procedure(s): US OB growth Accession Number(s): [id number] cc: Regina Barton; Physician,Non-Staff M.Chencho [address] [address] Patient Name: VINNY DOWNEY MRN: [id number] date: 2000 Sex: F Assigned Patient Location: US Current Patient Location: LAB Accession/Order Number: [id number] Exam Date: 04/05/2025 10:00 Report Date: 04/05/2025 [...] Peraza M.D. 04/05/2025 12:08 PM Dictation Location: [place] Electronically authenticated by: [id number] Y Date: 04/05/2025 12:08 Dictated By: Daryn Peraza D.O. Signed By: 04/05/25 1211 DD/ 1208 TD/TT: Life Cycle Assessment Analyst:JAMILAHadiology, Radiologist, - 04/05/2025 [place] [address] Ultrasound Report Signed Patient: VINNY DOWNEY MR#: [id number] : 2000 Acct:[id number] Age/Sex: 24 / F ADM Date: 04/05/25 Loc: US Attending Dr: Regina Barton Ordering Physician: Regina Barton Date of Service: 04/05/25 Procedure(s): US OB growth Accession Number(s): [id number] cc: Regina Barton; Physician,Non-Staff Khadar The [address] [address] Patient Name: VINNY DOWNEY MRN: [id number] date: 2000 Sex: F Assigned Patient Location: US Current Patient Location: LAB Accession/Order Number: [id number] Exam Date: 04/05/2025 10:00 Report Date: 04/05/2025 [...] Peraza M.D. 04/05/2025 12:08 PM Dictation Location: [place] [address] Electronically authenticated by: [id number] Y Date: 04/05/2025 12:08 Dictated By: Daryn Peraza D.O. Signed By: 04/05/25 1211 DD/ 1208 TD/TT: Life Cycle Assessment Analyst: [facility] HealthcareRadiology Study observation (narrative)[facility] CenterUS OB GROWTHOrdered By: Radiologist Radiology on 41-55-9988MCWCSSM DePaul Health Center Work Phone: Urinalysis macro (dipstick) panel (U)on 04-03-2025 Bilirubin, UANegativeNegative - 4(70) +++ mg/dLNOMS HealthcareBlood, UANegative Negative - 50 Yunior/mcLNOMS HealthcareClarity, UAClearNOMS HealthcareColor, UA YellowNOMS HealthcareGlucose, UANegativeNegative - 2000(110) ++++ mg/dLNOTN HealthcareInterpretation and review of laboratory resultsAbnormalNOTN Healthcare Ketones, UANegativeNegative - 160(16) ++++ mg/dLNOMS HealthcareLeukocytes, UA PositiveNegative - 500+++ Trip/mcLNOTN HealthcareNitrite, UANegativeNegative - PositiveNOTN HealthcarepH, UA6.55 - 9NOMS HealthcareProtein, UANegativeNegative - 2000(20) ++++ mg/dLNOMS HealthcareSpec Grav, UA1.011 - 1.03[facility] Urobilinogen, UA1.00.2 - 12 mg/dLNOTN HealthcareNOTN HealthcareUrinalysis macro (dipstick) panel (U)on 34-62-8311Commwgbyl, UANegativeNegative - 4(70) +++ mg/dL NOMS HealthcareBlood, UANegativeNegative - 50 Yunior/mcLNOMS HealthcareClarity, UA ClearNOMS HealthcareColor, UAYellowNOMS HealthcareGlucose, UANegativeNegative - 1999(110) ++++ mg/dLNOMS HealthcareInterpretation and review of laboratory resultsNormalNOMS HealthcareKetones, UANegativeNegative - 160(16) ++++ mg/dLNOMS HealthcareLeukocytes, UANegativeNegative - 500+++ Trip/mcLNOMS HealthcareNitrite, UANegativeNegative - PositiveNOMS HealthcarepH, UA6.55 - 9[facility] Protein, UANegativeNegative - 1999(20) ++++ mg/dLNOMS HealthcareSpec Grav, UA 1.011 - 1.03NOMS HealthcareUrobilinogen, UA1.00.2 - 12 mg/dLNOMS HealthcareNOMS HealthcareUrinalysis macro (dipstick) panel (U)on 15-43-7692Acfywfwmg, UA NegativeNegative - 4(70) +++ mg/dLNOMS HealthcareBlood, UANegativeNegative - 50 Yunior/mcLNOMS HealthcareClarity, UAClearNOMS HealthcareColor, UAYellowNOMS HealthcareGlucose, UANegativeNegative - 1999(110) ++++ mg/dLNOMS Healthcare Interpretation and review of laboratory resultsNormalNOMS HealthcareKetones, UA NegativeNegative - 160(16) ++++ mg/dLNOMS HealthcareLeukocytes, UANegative Negative - 500+++ Trip/mcLNOMS HealthcareNitrite, UANegativeNegative - Positive NOMS HealthcarepH, UA65 - 9NOMS HealthcareProtein, UANegativeNegative - 1999(20) ++++ mg/dLNOMS HealthcareSpec Grav, UA1.011 - 1.03NOMS HealthcareUrobilinogen, UA0.20.2 - 12 mg/dLNOMS HealthcareNOMS HealthcareUS OB 14+ WEEKS ANATOMY SCANon 84-16-8075UR OB 14+ WEEKS ANATOMY SCANFINDINGS: A single, live intrauterine is present with [...] 24, 2025. TRANSCRIBED BY: ELECTRONICALLY SIGNED BY: Mark Todd AvailableComment on above:Order Comment: US OB ANATOMY SINGLE W US OB CERVICAL LENGTH Estimated Date of Delivery: 06/23/25 Gestational Age as of 01/15/2025: 00c7wWwbodcefxz macro (dipstick) panel (U)on 16-02-3753Europimyo, UANegativeNegative - 4(70) +++ mg/dLNOMS HealthcareBlood, UANegativeNegative - 50 Yunior/mcLNOMS HealthcareClarity, UAClearNOMS Healthcare Color, UAYellowNOMS HealthcareGlucose, UANegativeNegative - 2000(110) ++++ mg/dL NOMS HealthcareInterpretation and review of laboratory resultsNormalNOMS HealthcareKetones, UANegativeNegative - 160(16) ++++ mg/dLNOMS Healthcare Leukocytes, UANegativeNegative - 500+++ Trip/mcLNOMS HealthcareNitrite, UA NegativeNegative - PositiveNOMS HealthcarepH, UA6.55 - 9NOMS HealthcareProtein, UANegativeNegative - 2000(20) ++++ mg/dLNOMS HealthcareSpec Grav, UA1.0251 - 1.03NOMS HealthcareUrobilinogen, UA1.00.2 - 12 mg/dLNOMS HealthcareNOMS HealthcareRECURRENT VAGINITIS (HTRX)on 24-60-7951RBGLEDUPH MTVWLIN7BQYO HealthcareATOPOBIUM VAGINAENot detectedNOMS HealthcareBVAB 2,3 (BACTERIAL VAGINOSIS ASSOCIATED BACTERIA 2, 3); MOBILUNCUS JDK9NYBZ HealthcareBVAB 2,3 (BACTERIAL VAGINOSIS ASSOCIATED BACTERIA 2, 3); MOBILUNCUS SPPNot detectedNOMS HealthcareCANDIDA ALBICANS, PARAPSILOSIS, CSVXIZYSNI5FPNY HealthcareCANDIDA ALBICANS, PARAPSILOSIS, TROPICALISNot detectedNOMS HealthcareCANDIDA GLABRATA0 NOMS HealthcareCANDIDA GLABRATANot detectedNOMS HealthcareCANDIDA HGMFNN4WRSH HealthcareCANDIDA KRUSEINot detectedNOMS HealthcareCHLAMYDIA WSIEHMDTFBR8NZSB HealthcareCHLAMYDIA TRACHOMATISNot detectedNOMS HealthcareGARDNERELLA VAGINALIS0 NOMS HealthcareGARDNERELLA VAGINALISNot detectedNOMS HealthcareMEGASPHAERA (TYPES 1, 2)0NOMS HealthcareMEGASPHAERA (TYPES 1, 2)Not detectedNOMS Healthcare MYCOPLASMA ONTFUXYDDO1TYXP HealthcareMYCOPLASMA GENITALIUMNot detectedNOMS HealthcareNEISSERIA BQZIDOQQELI0URGZ HealthcareNEISSERIA GONORRHOEAENot detected NOMS HealthcareTRICHOMONAS ZAXZQQOJZ0HLWI HealthcareTRICHOMONAS VAGINALISNot detectedNOMS HealthcareNOMS HealthcareCBCon 23-74-7047Kofvdzudaps distribution width (RBC) [Ratio]12.6 %11.8 - 14.4 %[facility] HospitalsHematocrit (Bld) [Volume fraction]35.4 %Low36.3 - 47.1 %[facility] HospitalsHemoglobin (Bld) [Mass/Vol]11.7 g/dLLow11.9 - 15.1 g/dLBon [facility] Medical CenterInterpretation and review of laboratory resultsAbnormalBon [facility] HospitalH (RBC) [Entitic mass]30 pg25.2 - 33.5 pgBon [facility] HospitalHC (RBC) [Mass/Vol]33.1 g/dL 28.4 - 34.8 g/dLBon [facility] HospitalV (RBC) [Entitic vol]90.8 fL82.6 - 102.9 fLLifepoint HospitalsNucleated RBC/100 WBC (Bld) [Ratio]0 %0.0 per 100 WBCLifepoint HospitalsPlatelet mean volume (Bld) [Entitic vol]8.7 fL8.1 - 13.5 fLLifepoint HospitalsPlatelets (Bld) [#/Vol]316 10*3/uLBon [facility] Medical CenterRBC (Bld) [#/Vol]3.9 10*6/uLLow3.95 - 5.11 m/uLBon [facility] Medical CenterWBC other (Bld) [#/Vol]10.2Bon [facility] SystemErythrocyte distribution width (RBC) [Ratio]12.6 %Qgfhvu13.8-14.4[facility] HospitalComment on above:Performed By: #### GLUSC, CBC #### [address] [place] [place] [address] Vba Programmer: Yelena Greco MDHematocrit (Bld) [Volume fraction]35.4 %Low 36.3-47.1MSalem City HospitalComment on above:Performed By: #### GLUSC, CBC #### [address] [place] [place] [address] Vba Programmer: Yelena Greco MDHemoglobin (Bld) [Mass/Vol]11.7 g/dLLow11.9-15.1 [facility] HospitalComment on above:Performed By: #### GLUSC, CBC #### [address] [place] [place] [address] Vba Programmer: YULY ArandaCH (RBC) [Entitic mass]30.0 qkOutzad70.2-33.5 [facility] HospitalComment on above:Performed By: #### GLUSC, CBC #### [address] [place] [place] [address] Vba Programmer: YULY ArandaCHC (RBC) [Mass/Vol]33.1 g/vFYxcwgr76.4-34.8[facility] HospitalComment on above:Performed By: #### GLUSC, CBC #### [address] [place] [place] [address] Vba Programmer: YULY ArandaCV (RBC) [Entitic vol]90.8 cAKgpwvr66.6-102.9 [facility] HospitalComment on above:Performed By: #### GLUSC, CBC #### [facility] [address] [place] [address] [place] [address] Vba Programmer: JACINTA Aranda Automated0.0 per 100 WBCNormal0.0[facility] HospitalComment on above:Performed By: #### GLUSC, CBC #### [address] [place] [place] [address] Vba Programmer: Sobeida Aranda mean volume (Bld) [Entitic vol]8.7 fL Normal8.1-13.5[facility] HospitalComment on above:Performed By: #### GLUSILVINO, CBC #### [address] [place] [place] [address] Vba Programmer: Richie Aranda (Bld) [#/Vol]316 10*3/gFJuoxvl984-147 [facility] HospitalComment on above:Performed By: #### GLUSILVINO, CBC #### [address] [place] [place] [address] Vba Programmer: BILL Aranda (Bld) [#/Vol]3.90 10*6/uLLow3.95-5.11[facility] HospitalComment on above:Performed By: #### GLUSILVINO, CBC #### [address] [place] [place] [address] Vba Programmer: LANEY Aranda (Bld) [#/Vol]10.2 10*3/uLNormal3.5-11.3MSalem City HospitalComtrinity health [facility]ston hospital on above:Performed By: #### GLUSC, CBC #### [address] [place] [place] [address] Vba Programmer: Yelena Greco MDGlucose Challenge Gestationalon 53-14-5820ZFI ADMN GlucolaBon Secours Summa HealthGlucose 1 Hr post 50 g glucose PO [Mass/Vol]184 mg/aPRtpi43 - 135 mg/dLBon [facility] CenterInterpretation and review of laboratory resultsAbnormalHealthSouth Medical Center Glucose Toya Scr 50gon 44-08-4210Onoeswk [Mass/Vol]184 mg/aCGoyk90-797ZviuhOhiohealth Grove City Methodist HospitalComment on above:Performed By: #### GLUSC, CBC #### [facility] [address] [place] [place] [address] Vba Programmer: Yelena Greco MDGlu Administered viaGlucolaNormSelect Medical Cleveland Clinic Rehabilitation Hospital, BeachwoodComment on above:Performed By: #### GLUSC, CBC #### [facility] [address] [place] [place] [address] Vba Programmer: Yelena Greco MDUS OB LESS THAN 14 WEEKS SINGLE OR FIRST GESTATION on 73-72-0201EQESSEXRKEW: FIRST TRIMESTER OBSTETRIC ULTRASOUND 12/20/2024 TECHNIQUE: 1. [...] Signed by: Noah Rivero MD 12/23/24 Final resultMHPTRadiology, Radiologist, - 12/23/2024 EXAMINATION: FIRST TRIMESTER OBSTETRIC [...] by: Noah Rivero MD 12/23/24 Final result NOMS HealthcareRadiology Study observation (narrative)NOMS HealthcareUS OB LESS THAN 14 WEEKS SINGLE OR FIRST GESTATIONOrdered By: Radiologist Radiology on 16-81-2571ZDJQ [employer] Work Phone: US OB LESS THAN 14 WEEKS SINGLE OR FIRST GESTATION W DOPPLERon 17-07-6571IO OB LESS THAN 14 WEEKS SINGLE OR [...] Signed by: Noah Rivero MD 12/23/24 Final resultNormalMerProMedica Toledo Hospital HospitalUrinalysis macro (dipstick) panel (U)on 73-21-5884Spxaobgui, UANegativeNegative - 4(70) +++ mg/dLNOMS HealthcareBlood, UAPositiveNegative - 50 Yunior/mcLNOMS HealthcareClarity, UAClearNOMS Healthcare Color, UAYellowNOMS HealthcareGlucose, UANegativeNegative - 2000(110) ++++ mg/dL N[facility]S HealthcareInterpretation and review of laboratory resultsAbnormalNOMS HealthcareKetones, UANegativeNegative - 160(16) ++++ mg/dLNOMS Healthcare Leukocytes, UANegativeNegative - 500+++ Trip/mcLNOMS HealthcareNitrite, UA NegativeNegative - PositiveNOMS HealthcarepH, UA75 - 9NOMS HealthcareProtein, UA NegativeNegative - 2000(20) ++++ mg/dLNOMS HealthcareSpec Grav, UA1.011 - 1.03 NOMS HealthcareUrobilinogen, UA1.00.2 - 12 mg/dLNovant Health [facility] HCG ( test) Ql (U)on 83-19-4067Mtduhjhwujrggc and review of laboratory resultsAbnormalNOTN HealthcarePreg Test, UrPositiveNegativeNOMS [facility] North HospitalNOTN HealthcareUS OB TRANSVAGINALon 90-68-6977ZO OB TRANSVAGINALEXAM: US OB TRANSVAGINAL HISTORY: Dating. A1. x1. [...] II, MD, PHD at 15-Nov-2024 09:44:32 AM [facility] TeleradiologyNormalNot AvailableComment on above:Order Comment: US OB TRANSVAGINAL No LMP recorded.Urinalysis macro (dipstick) panel (U)on 41-21-0909Brglfutdv, UA NegativeNegative - 4(70) +++ mg/dLNOMS HealthcareBlood, UANegativeNegative - 50 Yunior/mcLNOMS HealthcareClarity, UAClearNOTN HealthcareColor, UAYellowNOTN HealthcareGlucose, UANegativeNegative - 1999(110) ++++ mg/dLLAYTON HOSPITAL Healthcare Interpretation and review of laboratory resultsNormalLAYTON HOSPITAL HealthcareKetones, UA NegativeNegative - 160(16) ++++ mg/dLSSM DePaul Health CenterLeukocytes, UANegative Negative - 500+++ Trip/mcLSSM DePaul Health CenterNitrite, UANegativeNegative - Positive NOMS HealthcarepH, UA6.55 - 9NOTN HealthcareProtein, UANegativeNegative - 1999(20) ++++ mg/dLNOTN HealthcareSpec Grav, UA1.0051 - 1.03NOTN Healthcare Urobilinogen, UA0.20.2 - 12 mg/dLMercy McCune-Brooks Hospital HealthcareIGP,APTIMA HPV,AGE GDLNon 27-42-5152FNZ GDLN ACOG TESTINGNote.[facility] Health CenterComment on above:TESTS RESULT FLAG UNITS REF RANGE LAB Clinician Provided Cytology Information Source.............Cervix;Endocervix No. of containers..01 ThinPrep Vial Age Algo ACOG Addie... -21 08 FLAG LEGEND: L-Low Normal,H-High Normal,LL-Alert Low,HH-Alert High <-Panic Low,>-Panic High,A-Abnormal,AA-Critical Abnormal Performed at: 01 =[facility] [address] Anastasiya Moses MD, IGP, RFX APTIMA HPV ASCUNote.NOMS HealthcareComment on above:TESTS RESULT FLAG UNITS REF RANGE LAB DIAGNOSIS: 02 NEGATIVE FOR INTRAEPITHELIAL LESION OR MALIGNANCY. Specimen adequacy: 02 Satisfactory for evaluation. Endocervical and/or squamous metaplastic cells (endocervical component) are present. Performed by: 02 Maico Galaviz, Cellular Equipment Installer ([facility]) . 02 Note: Note 02 [...] High,A-Abnormal,AA-Critical Abnormal Performed at: 02 [facility] [address] [place] [address] Anastasiya Moses MD, Performed at: =G - [facility] [address], [place] [id number] Vba Programmer: Anastasiya Moses MD, Phone: [phone] Performed at: - [facility] [address] [place], [place] [id number] Vba Programmer: Anastasiya Moses MD, Phone: [phone] BRUSH-SPATULA CERVIX ENDOCERVIX CLINISYNCNOMS HealthcareComp Metabolic Profon 73-39-7350Bkfswik [Mass/Vol]4.6 g/dLNormal3.5-5.2Mercy Harlan HospitalComment on above:Performed By: #### CP #### [address] [place], [place] [id number] Vba Programmer: Yelena Greco MDAlbumin/Glob Ratio1.0Iicxgt5.0-2.5Mercy Harlan HospitalComment on above:Performed By: #### CP #### [address] [place] [place] [address] Vba Programmer: Giselle Aranda Phos71 U/XOvnizf50-783Lsgbg Harlan HospitalComment on above:Performed By: #### CP #### [address] [place] [place] [address] Vba Programmer: Yelena Greco MDALT [Catalytic activity/Vol]41 U/DDmcb82-16Fppxx [facility] HospitalComment on above:Performed By: #### CP #### [address] [place] [place] [address] Vba Programmer: Yelena Greco MDAnion gap [Moles/Vol]10 mmol/LNormal9-16[facility] Campuscy Harlan HospitalComment on above:Performed By: #### CP #### [address] [place], [place] [address] Vba Programmer: Yelena Greco MDAST [Catalytic activity/Vol]34 U/SNdvpqf85-11Viayz [facility] HospitalComment on above:Performed By: #### CP #### [address] [place] [address] Vba Programmer: Yelena Greco MDBilirubin [Mass/Vol]0.4 mg/dLNormal0.00-1.20[facility] HospitalComment on above:Performed By: #### CP #### [address] [place] [place] [address] Vba Programmer: Yelena Greco MDBUN/CRE Cjuyv35Wzdy7-37OdzshOhiohealth Grove City Methodist Hospital Comment on above:Performed By: #### CP #### [address] [place] [place] [address] Vba Programmer: NATALIO Arandaalcium [Mass/Vol]9.4 mg/dLNormal8.6-10.4[facility] HospitalComment on above:Performed By: #### CP #### [address] [place] [place] [address] Vba Programmer: NATALIO Arandahloride [Moles/Vol]103 mmol/CFxipwm09-797Crpzp [facility] HospitalComment on above:Performed By: #### CP #### [address] [place] [place] [address] Vba Programmer: Yelena Greco MDCO2 [Moles/Vol]25 mmol/MRrando66-95Lulcu [facility] HospitalComment on above:Performed By: #### CP #### [address] [place] [place] [address] Vba Programmer: NATALIO Arandareatinine [Mass/Vol]0.6 mg/dLNormal0.50-0.90[facility] HospitalComment on above:Performed By: #### CP #### [address] [place] [address] [place] [address] Vba Programmer: Yelena Greco MDGFR/1.73 sq M.predicted among non-blacks MDRD (S/P/Bld) [Vol rate/Area]mL/min/{1.73_m2}Normal>60MerProMedica Toledo Hospital HospitalComment on above:Result Comment: These results are not intended for [...] or following therapy that affects renal tubular secretion.Performed By: #### CP #### [address] [place] [place] [address] Vba Programmer: Yelena Greco MDGlucose [Mass/Vol]83 mg/cNZbthwt54-13Lxzwv [facility] HospitalComment on above:Performed By: #### CP #### [address] [place], [facility]83 Vba Programmer: ROLANDO Arandaotassium [Moles/Vol]4.6 mmol/LNormal3.7-5.3Mberger hospitaly [facility]lan HospitalComment on above:Performed By: #### CP #### [address] [place], [facility]83 Vba Programmer: Yelena Greco MDProtein [Mass/Vol]7.8 g/dLNormal6.6-8.7[facility] HospitalComment on above:Performed By: #### CP #### [address] [place] [place] [address] Vba Programmer: Yelena Greco MDSodium [Moles/Vol]138 mmol/HFdybps544-119Vscsv [facility] HospitalComment on above:Performed By: #### CP #### [address] [place] [place] [address] Vba Programmer: Yelena Greco MDUrea nitrogen [Mass/Vol]13 mg/dLNormal6-20Mercy Harlan HospitalComment on above:Performed By: #### CP #### [facility] [address] [place] [place] [address] Vba Programmer: Yelena Greco [facility] STIL[facility]LLompmarietta osteopathic clinicensive Metabolic Panelon 48-67-3464Jizkikq [Mass/Vol]4.6 g/dL3.5 - 5.2 g/dLBon [facility] Medical CenterAlbumin/Globulin [Mass ratio]1.5 {ratio}1.0 - 2.5Bon [facility] CenterALP [Catalytic activity/Vol]71 U/L35 - 104 U/LBon [facility] CenterALT [Catalytic activity/Vol]41 U/LHigh10 - 35 U/LBon [facility] Medical CenterAnion gap [Moles/Vol]10 mmol/L9 - 16 mmol/LBon [facility] CenterAST [Catalytic activity/Vol]34 U/L10 - 35 U/LBon [facility] Medical CenterBilirubin [Mass/Vol]0.4 mg/dL0.00 - 1.20 mg/dLBon [facility] Medical CenterCalcium [Mass/Vol]9.4 mg/dL8.6 - 10.4 mg/dLBon [facility] Chloride [Moles/Vol]103 mmol/L98 - 107 mmol/LBon [facility] CenterCO2 [Moles/Vol]25 mmol/L20 - 31 mmol/LBon [facility] CenterCreatinine [Mass/Vol] 0.6 mg/dL0.50 - 0.90 mg/dLBon [facility] Medical CenterEst, Glom Filt Rate- PINFBon [facility] Medical CenterComtrinity health living[facility] hospital on above: These results are not intended [...] therapy that affects renal tubular secretion. Glucose [Mass/Vol]83 mg/dL74 - 99 mg/dLBon [facility] CenterInterpretation and review of laboratory resultsAbnormalBon [facility] Medical CenterPotassium [Moles/Vol]4.6 mmol/L3.7 - 5.3 mmol/LBon [facility] CenterProtein [Mass/Vol] 7.8 g/dL6.6 - 8.7 g/dLBon [facility] Medical CenterSodium [Moles/Vol]138 mmol/L136 - 145 mmol/LBon [facility] CenterUrea nitrogen [Mass/Vol]13 mg/dL6 - 20 mg/dL Lifepoint HospitalsUrea nitrogen/Creatinine [Mass ratio]22 mg/mgHigh9 - 20 [facility] CenterLipid Panelon 05-20-2024 Cholesterol [Mass/Vol]152 mg/dL0 - 199 mg/dLBon [facility] Medical CenterComment on above: Cholesterol Guidelines: <200 Desirable 200-240 Borderline >240 Undesirable Cholesterol in HDL [Mass/Vol]33 mg/dLLow40 - PINF mg/dLBon [facility] marinanow Comment on above: HDL Guidelines: <40 Undesirable 40-59 Borderline >59 Desirable Cholesterol in LDL [Mass/Vol]88 mg/dL0 - 100 mg/dLBon [facility] marinanow Comment on above: LDL Guidelines: <100 Desirable 100-129 Near to/above Desirable 130-159 Borderline >159 Undesirable Direct (measured) LDL and calculated LDL are not interchangeable tests. Cholesterol in VLDL [Mass/Vol]31 mg/dLBon [facility] marinanow Cholesterol.total/Cholesterol in HDL [Mass ratio]5.0 {ratio}[facility] marinanowInterpretation and review of laboratory resultsAbnormalLifepoint HospitalsTriglyceride [Mass/Vol]156 mg/dLHighNINF - 150 mg/dLBon [facility] CenterComment on above: Triglyceride Guidelines: <150 Desirable 150-199 Borderline 200-499 High >499 Very high Based on AHA Guidelines for fasting triglyceride, April 2012. [facility] HospitalAngioChem marinanowLipid Profileon 12-65-1204Hdndosimhka [Mass/Vol]152 mg/dLNormal0-199Ohio[facility] Methodist HospitalComment on above:Result Comment: Cholesterol Guidelines: <200 Desirable 200-240 Borderline >240 UndesirablePerformed By: #### LIPR #### [facility] AkronAlex[facility] [place] [address] Vba Programmer: Osvaldo Madoff, MDCholesterol in HDL [Mass/Vol]33 mg/dLLow>40Ohio[facility] City Methodist HospitalComment on above:Result Comment: HDL Guidelines: <40 Undesirable 40-59 Borderline >59 DesirablePerformed By: #### LIPR #### [address] [address] Vba Programmer: NATALIO Tavarezholesterol in LDL [Mass/Vol]88 mg/dLNormal0-100 [facility] HospitalComment on above:Result Comment: LDL Guidelines: <100 Desirable 100-129 Near to/above Desirable 130-159 Borderline >159 Undesirable Direct (measured) LDL and calculated LDL are not interchangeable tests.Performed By: #### LIPR #### [address] [address] Vba Programmer: NATALIO Tavarezholesterol in VLDL [Mass/Vol]31 mg/dLNormal [facility] on above:Performed By: #### LIPR #### [address] [address] Vba Programmer: Trinidad Tavarez.total/Cholesterol in HDL [Mass ratio]5.0 {ratio}NormalOhiohealth Grove City Methodist HospitalComtrinity health [facility] on above:Performed By: #### LIPR #### [address] [address] Vba Programmer: Osvaldo Santamaria MDTriglyceride [Mass/Vol]156 mg/dLHigh<150[facility] HospitalComment on above:Result Comment: Triglyceride Guidelines: <150 Desirable 150-199 Borderline 200-499 High >499 Very high Based on AHA Guidelines for fasting triglyceride, April 2012.Performed By: #### LIPR #### [address] [address] Vba Programmer: Osvaldo Santamaria MDUS GALLBLADDER RUQon 21-68-5919WQ GALLBLADDER RUQEXAMINATION: RIGHT UPPER QUADRANT ULTRASOUND 03/06/2024 9:58 am [...] Signed by: Hernandez Stewart MD 03/06/24 Final resultNormalSt. Rita's Hospital 82-80-9055Axkqbijdhrz distribution width (RBC) [Ratio]12.4 %Pakibn59.8-14.4[facility] HospitalComment on above: Performed By: #### FEBC #### [address] [address] Vba Programmer: Osvaldo Santamaria MD #### CBC, CP #### [address] [place] [address] Vba Programmer: Yelena Greco MDHematocrit (Bld) [Volume fraction]40.2 %Normal 36.3-47.1MSalem City HospitalComment on above:Performed By: #### FEBC #### [address] [address] Vba Programmer: Osvaldo Santamaria MD #### CBC, CP #### [address] [place] [address] Vba Programmer: Yelena Greco MDHemoglobin (Bld) [Mass/Vol]13.5 g/dLNormal 11.9-15.1MSalem City HospitalComment on above:Performed By: #### FEBC #### [address] [place] [address] Vba Programmer: Osvaldo Santamaria MD #### CBC, CP #### [address] [place] [address] Vba Programmer: YULY ArandaCH (RBC) [Entitic mass]29.8 ltHseazq19.2-33.5 [facility] HospitalComment on above:Performed By: #### FEBC #### [address] [address] Vba Programmer: Osvaldo Santamaria MD #### CBC, CP #### [address] [place] [address] Vba Programmer: TY ArandaC (RBC) [Mass/Vol]33.6 g/rKRybueu38.4-34.8[facility] HospitalComment on above:Performed By: #### FEBC #### [address] [address] Vba Programmer: Osvaldo Santamaria MD #### CBC, CP #### [address] [place] [address] Vba Programmer: YULY ArandaCV (RBC) [Entitic vol]88.7 vGPurnsf13.6-102.9 [facility] HospitalComment on above:Performed By: #### FEBC #### [address] [address] Vba Programmer: Osvaldo Santamaria MD #### CBC, CP #### [address] [place] [address] Vba Programmer: Yelena Greco MDNRBC Automated0.0 per 100 WBCNormal0.0[facility] HospitalComment on above:Performed By: #### FEBC #### [address] [address] Vba Programmer: Osvaldo Santamaria MD #### CBC, CP #### [address] [place], [place] [id number] Vba Programmer: Sobeida Aranda mean volume (Bld) [Entitic vol]8.5 fL Normal8.1-13.5[facility] HospitalComment on above:Performed By: #### FEBC #### [address] [address] Vba Programmer: Osvaldo Santamaria MD #### CBC, CP #### [address] [place] [id number] Vba Programmer: Richie Aranda (Bld) [#/Vol]309 10*3/aCVzkytf593-343 [facility] HospitalComment on above:Performed By: #### FEBC #### [address] [address] Vba Programmer: Osvaldo Santamaria MD #### CBC, CP #### [address] [place], [place] [phone] Vba Programmer: JO ANN ArandaBC (Bld) [#/Vol]4.53 10*6/uLNormal3.95-5.11[facility] HospitalComment on above:Performed By: #### FEBC #### [address] [address] Vba Programmer: Osvaldo Santamaria MD #### CBC, CP #### [address] [place], [place] [id number] Vba Programmer: Yelena Greco MDWBC (Bld) [#/Vol]6.5 10*3/uLNormal3.5-11.3MSalem City HospitalComment on above:Performed By: #### FEBC #### [address] [address] Vba Programmer: Osvaldo Santamaria MD #### CBC, CP #### [address] [place], [place] 103[address]83 Vba Programmer: NATALIO Arandaomp Metabolic Profon 21-22-4717Fpooepf [Mass/Vol] 4.5 g/dLNormal3.5-5.2[facility] HospitalComment on above:Performed By: #### FEBC #### [address] [address] Vba Programmer: Osvaldo Santamaria MD #### CBC, CP #### [address] [place], [place] [phone] Vba Programmer: Yelena Greco MDAlbumin/Glob Ratio1.4Lxunpy7.0-2.5[facility] HospitalComment on above:Performed By: #### FEBC #### [address] [address] Vba Programmer: Osvaldo Santamaria MD #### CBC, CP #### [address] [place], [place] [phone] Vba Programmer: Mechelle Arandaline Phos74 U/SUitqff98-929BibodOhiohealth Grove City Methodist HospitalComment on above:Performed By: #### FEBC #### [address] [address] Vba Programmer: Osvaldo Santamaria MD #### CBC, CP #### [address] [place] [place] [address] Vba Programmer: Yelena Greco MDALT [Catalytic activity/Vol]61 U/LHigh5-33[facility] HospitalComment on above:Performed By: #### FEBC #### [address] [address] Vba Programmer: Osvaldo Santamaria MD #### CBC, CP #### [address] [place], [place] [phone] Vba Programmer: Lindsay Aranda gap [Moles/Vol]8 mmol/LLow9-17[facility] HospitalComment on above:Performed By: #### FEBC #### [address] [address] Vba Programmer: Osvaldo Santamaria MD #### CBC, CP #### [facility] [address] [place] [address] Dr. [place], [place] 8021083 Vba Programmer: Yelena Greco MDAST [Catalytic activity/Vol]43 U/LHigh<32[facility] HospitalComment on above:Performed By: #### FEBC #### [address] [address] Vba Programmer: Osvaldo Santamaria MD #### CBC, CP #### [facility] [address] [place] [address] [place], [place] [phone] Vba Programmer: Yelena Greco MDBilirubin [Mass/Vol]0.2 mg/dLLow0.3-1.2MSalem City HospitalComment on above:Performed By: #### FEBC #### [address] [address] Vba Programmer: Osvaldo Santamaria MD #### CBC, CP #### [address] [place] [place] [address] Vba Programmer: Yelena Greco MDBUN/CRE Jugno42Vtkgaf3-73Fvnml [facility] Comment on above:Performed By: #### FEBC #### [address] [address] Vba Programmer: Osvaldo Santamaria MD #### CBC, CP #### [address] [place] [phone] Vba Programmer: NATALIO Arandaalcium [Mass/Vol]9.4 mg/dLNormal8.6-10.4[facility] HospitalComment on above:Performed By: #### FEBC #### [address] [address] Vba Programmer: Osvaldo Santamaria MD #### CBC, CP #### [address] [place], [place] 2576[address] Vba Programmer: NATALIO Arandahloride [Moles/Vol]100 mmol/HUmrvka89-053NmzhfOhiohealth Grove City Methodist HospitalComment on above:Performed By: #### FEBC #### [address] [address] Vba Programmer: Osvaldo Santamaria MD #### CBC, CP #### [address] [place] [address] Vba Programmer: NATALIO ArandaO2 [Moles/Vol]28 mmol/NVbazbx10-09VmmqpOhiohealth Grove City Methodist HospitalComment on above:Performed By: #### FEBC #### [address] [address] Vba Programmer: Osvaldo Santamaria MD #### CBC, CP #### [address] [place], [place] [phone] Vba Programmer: NATALIO Arandareatinine [Mass/Vol]0.6 mg/dLNormal0.5-0.9[facility] HospitalComment on above:Performed By: #### FEBC #### [address] [address] Vba Programmer: Osvaldo Santamaria MD #### CBC, CP #### [address] [place], [place] [phone] Vba Programmer: Yelena Greco MDGFR/1.73 sq M.predicted among non-blacks MDRD (S/P/Bld) [Vol rate/Area]mL/min/{1.73_m2}Normal>60[facility] HospitalComment on above:Result Comment: These results are not intended for [...] or following therapy that affects renal tubular secretion.Performed By: #### FEBC #### [address] [id number] Vba Programmer: Osvaldo Santamaria MD #### CBC, CP #### [address] [place] [address] Vba Programmer: Yelena Greco MDGlucose [Mass/Vol]91 mg/sLZajiog43-49IbmdqSalem City HospitalComment on above:Performed By: #### FEBC #### [address] [address] Vba Programmer: Osvaldo Santamaria MD #### CBC, CP #### [address] [place] [phone] Vba Programmer: Yelena Greco MDPotassium [Moles/Vol]4.2 mmol/LNormal3.7-5.3MSalem City HospitalComment on above:Performed By: #### FEBC #### [address] [address] Vba Programmer: Osvaldo Santamaria MD #### CBC, CP #### [address] [place] [address] Vba Programmer: Yelena Greco MDProtein [Mass/Vol]7.6 g/dLNormal6.4-8.3MSalem City HospitalComment on above:Performed By: #### FEBC #### [address] [address] Vba Programmer: Osvaldo Santamaria MD #### CBC, CP #### [address] [place], [place] [phone] Vba Programmer: KARLIE Arandaodium [Moles/Vol]136 mmol/VGtrwcb845-695Pamly [facility] HospitalComment on above:Performed By: #### FEBC #### [address] [address] Vba Programmer: Osvaldo Santamaria MD #### CBC, CP #### [address] [place] [phone] Vba Programmer: Yelena Greco MDUrea nitrogen [Mass/Vol]12 mg/dLNormal6-20[facility] HospitalComment on above:Performed By: #### FEBC #### [address] [address] Vba Programmer: Osvaldo Santamaria MD #### CBC, CP #### [address] [place] [phone] Vba Programmer: Una Aranda Binding Cap.on 02-16-2024% Fe Uyhlsqoqvq83 % Soyqps85-36QvvbuOhiohealth Grove City Methodist HospitalComment on above:Performed By: #### FEBC #### [address] [address] Vba Programmer: Osvaldo Santamaria MD #### CBC, CP #### [address] [place] [place] [address] Vba Programmer: Yelena Greco MDIron [Mass/Vol]92 ug/oLNiniph18-430UdfkxOhiohealth Grove City Methodist HospitalComment on above:Performed By: #### FEBC #### [address] [address] Vba Programmer: Osvaldo Santamaria MD #### CBC, CP #### [address] [place], [place] 3840783 Vba Programmer: Yelena Greco MDTotal Fe Binding Grb069 ug/gPRlmadu535-864ErqbrOhiohealth Grove City Methodist HospitalComment on above:Performed By: #### FEBC #### [address] [address] Vba Programmer: Osvaldo Santamaria MD #### CBC, CP #### [address] [place] [place] [address] Vba Programmer: Yelena Greco MDUnbound Fe Bind Kdl837 ug/eWCwneoh788-644GgxalOhiohealth Grove City Methodist HospitalComment on above:Performed By: #### FEBC #### [address] [address] Vba Programmer: Osvaldo Santamaria MD #### CBC, CP #### [address] [place] [place] [address] Vba Programmer: Yelena Greco MDLipid Profileon 21-99-3882Iztwaoiajaf [Mass/Vol] 245 mg/dLHigh0-199[facility] HospitalComment on above:Result Comment: Cholesterol Guidelines: <200 Desirable 200-240 Borderline >240 UndesirablePerformed By: #### LIPR #### [address] [address] Vba Programmer: Osvaldo Santamaria MDCholesterol in HDL [Mass/Vol]34 mg/dLLow>40[facility] HospitalComment on above:Result Comment: HDL Guidelines: <40 Undesirable 40-59 Borderline >59 DesirablePerformed By: #### LIPR #### [address] [address] Vba Programmer: NATALIO Tavarezholesterol in LDL [Mass/Vol]159 mg/dLHigh0-100 [facility] HospitalComment on above:Result Comment: LDL Guidelines: <100 Desirable 100-129 Near to/above Desirable 130-159 Borderline >159 Undesirable Direct (measured) LDL and calculated LDL are not interchangeable tests.Performed By: #### LIPR #### [facility] [place] [address] Vba Programmer: NATALIO Tavarezholesterol in VLDL [Mass/Vol]52 mg/dLNormal [facility] HospitalComment on above:Performed By: #### LIPR #### [facility] [address] [place] [address] Vba Programmer: Chance Tavarezstmilad.total/Cholesterol in HDL [Mass ratio]7.0 {ratio}NormalOhiohealth Grove City Methodist HospitalComment on above:Performed By: #### LIPR #### [facility] [address] [place] [address] Vba Programmer: Osvaldo Santamaria MDTriglyceride [Mass/Vol]259 mg/dLHigh<150[facility] Campuscy [facility] HospitalComment on above:Result Comment: Triglyceride Guidelines: <150 Desirable 150-199 Borderline 200-499 High >499 Very high Based on AHA Guidelines for fasting triglyceride, April 2012.Performed By: #### LIPR #### [facility] [address] [place] [address] Vba Programmer: Osvaldo Santamaria MDOffice Visiton 28-89-0059Wsswti-up visit [id number] Vinny Downey 2000 F Date Provider Department Center 07/11/2023 [facility]JENDRA [facility] Family History Problem Relation Age of Onset Anemia Mother Supraventricular tachycardia Father Hyperlipidemia Father Diabetes Sister Family Status - Relation Status Age at Mother Father Sister Level of Service:[address] [place] OFFICE/OUTPATIENT NEW MODERATE MDM 45 MINUTESNormal [facility] CenterOffice Visiton 10-80-8039Eontcl-up visit [id number] Vinny Downey 2000 F Date Provider Department Center 03/20/2023 [facility] [place] [facility] Family History Problem Relation Age of Onset Anemia Mother Supraventricular tachycardia Father Hyperlipidemia Father Diabetes Sister Family Status - Relation Status Age at Mother Father Sister Level of Service:[address]93 [place] OFFICE/OUTPATIENT NEW LOW MDM 30-44 MINUTESProMedica Flower HospitalUS PREG BIOPHY W NON STRESSon [id number] PREG BIOPHY W NON STRESSEXAMINATION: US PREG BIOPHY W NON STRESS HISTORY: [...] Electronically authenticated by: YELENA CARLOS Date: 2022-12-20 07:03[facility] PREG PLACENTAon [id number] PREG PLACENTAEXAMINATION: US PREG PLACENTA HISTORY: Left flank pain [...] authenticated by: LUIS ALFREDO GRANT Date: 2022-12-12 14:56[facility] PREG BIOPHY W NON STRESSon [id number] PREG BIOPHY W NON STRESSEXAMINATION: US PREG BIOPHY W NON STRESS HISTORY: [...] authenticated by: LUIS ALFREDO GRANT Date: 2022-12-11 04:08[facility]US PREG GROWTHon [id number] PREG GROWTHEXAMINATION: US PREG GROWTH HISTORY: High weight infant [...] authenticated by: LUIS ALFREDO GRANT Date: 2022-12-11 04:06[facility] HospitalGTT 3 HR PREGon [id number] [Mass/Vol]98 mg/dLNormal 74-106[facility]-FairhillComment on above:Performed By: #### GTT3P #### [facility] [address] [place] [address] Dr. Emilee SpringerGlucose [Mass/Vol]170 mg/dLMercy HospitalComment on above:Performed By: #### GTT3P #### [facility] [address] [place] [address] Dr. Emilee SpringerGlucose [Mass/Vol]201 mg/dLMercy HospitalComment on above:Performed By: #### GTT3P #### [facility] [address] [place] [address] Dr. Emilee SpringerGlucose [Mass/Vol]115 mg/dLNoLouis Stokes Cleveland VA Medical CenterComment on above:Performed By: #### GTT3P #### [facility] [address] [place] [address] Dr. Emilee Mcconnell PREG INCOMPLETE ANATOMYon [id number] PREG INCOMPLETE ANATOMY EXAM: US PREG INCOMPLETE ANATOMY HISTORY: screening COMPARISON: 09/10/2022 TECHNIQUE: Transabdominal FINDINGS: position: Transverse, head to the maternal right Heart rate: 157 bpm Normal observed anatomy: Nose/lips, four-chamber heart, left ventricular outflow tract, right ventricular outflow tract, spine IMPRESSION: Normal observed anatomy Electronically authenticated by: YELENA CARLOS Date: 2022-10-16 08:44[facility] AUTO DIFFon [id number] #0.0 103/ulNormal0.0-0.1The [facility] CenterComment on above:Performed By: #### CBC #### [facility] [address] [place] [address] Dr. Emilee SpringerBasophils/100 WBC (Bld)0.2 %Normal0.2-2.0[facility] Comment on above:Performed By: #### CBC #### [facility] [address] [place] [address] Dr. Emilee Weldon #0.1 103/ulNormal0.0-0.7The [facility] CenterComment on above: Performed By: #### CBC #### [facility] [address] [place] [address] Dr. Emilee Cintronosinophils/100 WBC (Bld)0.8 %Critically low0.9-7.0The [facility] CenterComment on above:Performed By: #### CBC #### [facility] [address] [place] [address] Dr. Emilee Cintronrythrocyte distribution width (RBC) [Ratio]12.5 %Dgzrrv34.0-15.0 The [facility] CenterComment on above:Performed By: #### CBC #### [facility] [address] [place] [address] Dr. Emilee SpringerHematocrit (Bld) [Volume fraction]29.8 %Critically low36.0-48.0 The [facility] CenterComment on above:Performed By: #### CBC #### [facility] [address] [place] [address] Dr. Emilee SpringerHemoglobin (Bld) [Mass/Vol]10.0 g/dLCritically low12.0-16.0The [facility] CenterComment on above:Performed By: #### CBC #### [facility] [address] [place] [address] Dr. Emilee SpringerIG #0.05 10e3/ulCritically high0.00-0.03The [facility] Comment on above:Performed By: #### CBC #### [facility] [address] [place] [address] Dr. Emilee SpringerIG %0.5 %Normal0.0-0.5The [facility] CenterComment on above: Performed By: #### CBC #### [facility] [address] [place] [address] Dr. Emilee Renae #1.6 103/ulNormal1.2-3.8The [facility] CenterComment on above:Performed By: #### CBC #### [facility] [address] [place] [address] Dr. Emilee Espinozamphocytes/100 WBC (Bld)15.3 %Critically low20.5-60.0The [facility] CenterComment on above:Performed By: #### CBC #### [facility] [address] [place] [address] Dr. Emilee SpringerMANUAL DIFF REQNONormalThe [facility] CenterComment on above: Performed By: #### CBC #### [facility] [address] [place] [address] Dr. Emilee Hannah (RBC) [Entitic mass]30.2 rhVbjdzz22.7-34.0The [facility] CenterComment on above:Performed By: #### CBC #### [facility] [address] [place] [address] Dr. Emilee GuevaraHC (RBC) [Mass/Vol]33.6 g/bXUuwuwt62.9-35.2The [facility] CenterComment on above:Performed By: #### CBC #### [facility] [address] [address] [address] Emilee GuevaraV (RBC) [Entitic vol]90.0 zHVkcgwk94.0-99.0The [facility] CenterComment on above:Performed By: #### CBC #### [facility] [address] [address] [address] Emilee Banegas #0.6 103/ulNormal0.3-0.8The [facility] CenterComment on above:Performed By: #### CBC #### [facility] [address] [address] [address] Emilee Hightowerocytes/100 WBC (Bld)5.8 %Normal1.7-12.0The [facility] Comment on above:Performed By: #### CBC #### [facility] [address] [address] [address] Emilee Fernandez #8.2 103/ulCritically high1.4-6.5The [facility] Comment on above:Performed By: #### CBC #### [facility] [address] [address] [address] Emilee Meeksutrophils/100 WBC (Bld)77.4 %Critically high43.0-75.0The [facility] CenterComment on above:Performed By: #### CBC #### [facility] [address] [address] [address] Emilee Olmedolet mean volume (Bld) [Entitic vol]8.5 fLCritically low 9.5-13.5The [facility] CenterComment on above:Performed By: #### CBC #### [facility] [address] [address] [address] Emilee SpringerPLT347 103/jmDjsofd268-714Nqf [facility] CenterComment on above: Performed By: #### CBC #### [facility] [address] [place] [address] Dr. Emilee SpringerRBC3.31 106/ulCritically low4.20-5.40The [facility] CenterComment on above:Performed By: #### CBC #### [facility] [address] [place] [address] Dr. Emilee SpringerWBC10.6 103/ulNormal4.0-11.0The [facility] CenterComment on above:Performed By: #### CBC #### [facility] [address] [place] [address] Dr. Emilee SpringerGLUCOSE - 1HRon 77-04-8682Zbghdkh [Mass/Vol]176 mg/dLCritically qoyr72-563Cke [facility] CenterComment on above:Performed By: #### GLU1HR #### [facility] [address] [place] [address] Dr. Emilee SpringerCHLAMYDIA/GONOCOCCUS ANISA (SWAB/URINE/PAPon 48-07-4242Utgiekhdn trachomatis, NAANegativeNormalNegativeSelect Medical Specialty Hospital - Cleveland-FairhillComment on above: Performed By: #### CBC #### [facility] [address] [place] [address] Dr. Emilee SpringerNeisseria gonorrhoeae, NAANegativeNormalNegativeSelect Medical Specialty Hospital - Cleveland-FairhillComment on above:Performed By: #### CBC #### [facility] [address] [place] [address] Dr. Emilee SpringerVAGINITIS/VAGINOSIS DNA PROBEon 21-43-2652Ooqxkon speciesNegative NormalNegativeSelect Medical Specialty Hospital - Cleveland-FairhillComment on above:Performed By: #### CBC #### [facility] [address] [place] [address] Dr. Emilee SpringerGardnerella vaginalisNegativeNormalNegativeSelect Medical Special[facility] Comment on above:Performed By: #### CBC #### [facility] [address] [place] [address] Dr. Emilee SpringerTrichomonas vaginalisNegativermalNegativeSelect Medical Specialty [facility] Comment on above:Performed By: #### CBC #### [facility] [address] [address] [address] Emilee Mcconnell PREG ANATOMY SINGLEon [id number] PREG ANATOMY SINGLE EXAMINATION: US PREG ANATOMY [...] authenticated by: LUIS ALFREDO GRANT Date: 2022-09-13 16:57[facility] HospitalAFP MATERNAL FOR SPINA BIFIDAon [id number] MoM0.42NoLouis Stokes Cleveland VA Medical CenterComment on above:Performed By: #### AFPMAT #### [facility] [address] [address] [address] Emilee SpringerAFP Value16.7 ng/mLNCleveland Clinic Mercy HospitalComment on above: Performed By: #### AFPMAT #### [facility] [address] [place] [address] Dr. Emilee Yoder, Serum for Spina BifidaReOhio Valley Surgical Hospital Comment on above:Performed By: #### AFPMAT #### [facility] [address] [place] [address] Dr. Emilee PhammentWayne HealthCare Main CampusComment on above:Result Comment: Pam Machado, Ph.D., [facility] Director . References: Available Upon Request. . Multiples Of Median Cutoffs For AFP Elevations Berkowitz 2.5 Black 2.8 IDD 2.0 Twins 4.5 Abbreviation Definitions IDD - Insulin Dep Diabetes OSBR - Open Spina Bifida Risk . For further inquiries contact [employer] at [phone]. . This test was developed and its performance characteristics determined by [employer]. It has not been cleared or approved by the Food and Drug Administration.Performed By: #### AFPMAT #### [facility] [address] [place] [address] Dr. Emilee Barrow Age Collection Date18.6 weeksMer[facility] Hospital Comment on above:Performed By: #### AFPMAT #### [facility] [address] [place] [address] Dr. Emilee Vargas, Age Based [facility] HospitalComment on above:Result Comment: 01/26/2023 Recalculations are not recommended when gestational dating by LMP and ultrasound are within 10 days.Performed By: #### AFPMAT #### [facility] [address] [place] [address] Dr. Emilee Luis Dep DiabetesWayne HealthCare Main CampusComment on above:Result Comment: Not provided. .Performed By: #### AFPMAT #### [facility] [address] [place] [address] Dr. Emilee SpringerInterpretationWayne HealthCare Main CampusComment on above: Result Comment: Interpretation: Screen Negative . This result is screen [...] Customer Services to discuss available options. The [employer] recommends amniocentesis be offered to women age 35 and older.Performed By: #### AFPMAT #### [facility] [address] [place] [address] Dr. Emilee Chong Age [facility] EDD24.3 [facility] on above:Performed By: #### AFPMAT #### [facility] [address] [place] [address] Dr. Emilee Dialuniversity hospitals [facility] GestationSalem City Hospital on above:Result Comment: Not provided. .Performed By: #### AFPMAT #### [facility] [address] [place] [address] Dr. Emilee CanoBR Risk 1 [id number] Hospital on above: Performed By: #### AFPMAT #### [facility] [address] [place] [address] Dr. Emilee Galo.[facility] on above:Performed By: #### AFPMAT #### [facility] [address] [place] [address] Dr. Emilee SosaSalem City Hospital on above:Result Comment: Not provided. .Performed By: #### AFPMAT #### [facility] [address] [place] [address] Dr. Emilee Arvizu Results:NegativeMedina Hospital on above: Performed By: #### AFPMAT #### [facility] [address] [place] [address] Dr. Emilee Salcedo antibody, IgGon 56-64-4621Shgnjfi virus IgG Ql (S)314.5 IU/mLInova Children's Hospital on above: REFERENCE RANGE: <5.0 NON-REACTIVE (non-immune) 5.0 TO 9.9 EQUIVOCAL >=10.0 REACTIVE (immune) [facility] SURFACE ANTIGEN SCREENon 09-93-3311KQbTy Screen NegativeNormalNegativeThe [facility] on above:Performed By: #### HBSANS #### [facility] [address] [place] [address] Dr. Emilee SpringerHEPATITIS C VIRUS AB W/ REFLEX QUANTon 44-30-1107EIF AB<0.1Normal 0.0-0.9The [facility] on above:Performed By: #### HCVPCRR #### [facility] [address] [place] [address] Dr. Emilee SpringerInterpretation:CommentNormalThe [facility] CenterComtrinity health [facility] on above:Result Comment: Negative Not infected with HCV, unless recent infection is suspected or other evidence exists to indicate HCV infection.Performed By: #### HCVPCRR #### [facility] [address] [place] [address] Dr. Emilee Thornton 1 AND 2 WITH REFLEXon 38-42-6754UIC Screen 4th Generation wRfxNon-ReactiveNormalNon ReactiveThe [facility] on above:Result Comment: HIV Negative HIV-1/HIV-2 antibodies and HIV-1 p24 antigen were NOT detected. There is no laboratory evidence of HIV infection.Performed By: #### CBC #### [facility] [address] [place] [address] Dr. Emilee SpringerRPR QUANTon 82-21-6119Jdzhc Plasma Reagin, QuantNon-Reactive NormalNonRea<1:1The [facility] on above:Result Comment: Please Note: This test does not meet current guidelines for screening and diagnosis of syphilis. This test is intended for following treatment response in patients being treated for syphilis infection. To screen for syphilis infection, a reflex cascade that includes both RPR and a treponema-specific assay should be utilized, such as Treponema pallidum (Syphilis) Screening [place] (086702) or Rapid Plasma Reagin (RPR) Test With Reflex to Quantitative RPR and Confirmatory Treponema pallidum Antibodies (346173).Performed By: #### CBC #### [facility] [address] [place] [address] Dr. Emilee Salcedo AB IGGon 44-33-3467Abhudvc Antibodies, IgG5.03 index NormalImmune >0.99The [facility] CenterComment on above:Result Comment: Non- immune <0.90 Equivocal 0.90 - 0.99 Immune >0.99Performed By: #### RUBIGG #### [facility] [address] [place] [address] Dr. Emilee Killian AUTO DIFFon 97-94-5127FBCY #0.0 103/ulNormal0.0-0.1The [facility] CenterComment on above:Performed By: #### GLU1HR #### [facility] [address] [place] [address] Dr. Emilee SpringerBasophils/100 WBC (Bld)0.2 %Normal0.2-2.0[facility] Comment on above:Performed By: #### GLU1HR #### [facility] [address] [place] [address] Dr. Emilee Weldon #0.1 103/ulNormal0.0-0.7The [facility] CenterComment on above: Performed By: #### GLU1HR #### [facility] [address] [place] [address] Dr. Emilee Cintronosinophils/100 WBC (Bld)0.9 %Normal0.9-7.0[facility] Comment on above:Performed By: #### GLU1HR #### [facility] [address] [place] [address] Dr. Emilee Cintronrythrocyte distribution width (RBC) [Ratio]11.9 %Gnqrdr65.0-15.0 [facility] Cleveland-FairhillComment on above:Performed By: #### GLU1HR #### [facility] [address] [place] [address] Dr. Emilee SpringerHematocrit (Bld) [Volume fraction]32.9 %Critically low36.0-48.0 The [facility] HospitalComment on above:Performed By: #### GLU1HR #### [facility] [address] [place] [address] Dr. Emilee SpringerHemoglobin (Bld) [Mass/Vol]11.6 g/dLCritically low12.0-16.0The [facility] CenterComment on above:Performed By: #### GLU1HR #### [facility] [address] [place] [address] Dr. Emilee Van #0.03 10e3/ulNormal0.00-0.03The [facility] CenterComment on above:Performed By: #### GLU1HR #### [facility] [address] [place] [address] Dr. Emilee Van %0.3 %Normal0.0-0.5The [facility] CenterComment on above: Performed By: #### GLU1HR #### [facility] [address] [place] [address] Dr. Emilee Renae #2.1 103/ulNormal1.2-3.8The [facility] CenterComment on above:Performed By: #### GLU1HR #### [facility] [address] [place] [address] Dr. Emilee Danielhocytes/100 WBC (Bld)20.2 %Critically low20.5-60.0The [facility] CenterComment on above:Performed By: #### GLU1HR #### [facility] [address] [place] [address] Dr. Emilee PenningtonUAL DIFF REQNONormalThe [facility] HospitalComment on above: Performed By: #### GLU1HR #### [facility] [address] [place] [address] Dr. Emilee Hannah (RBC) [Entitic mass]31.4 exLikvtf07.7-34.0The [facility] CenterComment on above:Performed By: #### GLU1HR #### [facility] [address] [place] [address] Dr. Emilee Guevara (RBC) [Mass/Vol]35.3 g/dLCritically high29.9-35.2The [facility] CenterComment on above:Performed By: #### GLU1HR #### [facility] [address] [place] [address] Dr. Emilee Ornelas (RBC) [Entitic vol]89.2 uUUribxt18.0-99.0The [facility] CenterComment on above:Performed By: #### GLU1HR #### [facility] [address] [place] [address] Dr. Emilee Banegas #0.7 103/ulNormal0.3-0.8The [facility] CenterComment on above:Performed By: #### GLU1HR #### [facility] [address] [place] [address] Dr. Emilee Hightowerocytes/100 WBC (Bld)7.0 %Normal1.7-12.0The [facility] Comment on above:Performed By: #### GLU1HR #### [facility] [address] [place] [address] Dr. Emilee Fernandez #7.5 103/ulCritically high1.4-6.5The [facility] Comment on above:Performed By: #### GLU1HR #### [facility] [address] [place] [address] Dr. Emilee Meeksutrophils/100 WBC (Bld)71.4 %Bpurov57.0-75.0The [facility] CenterComment on above:Performed By: #### GLU1HR #### [facility] [address] [place] [address] Dr. Emilee Barth mean volume (Bld) [Entitic vol]9.1 fLCritically low 9.5-13.5The [facility] CenterComment on above:Performed By: #### GLU1HR #### [facility] [address] [place] [address] Dr. Emilee SpringerPLT311 103/xgFgtcsl156-191Hze [facility] CenterComment on above: Performed By: #### GLU1HR #### [facility] [address] [place] [address] Dr. Emilee SpringerRBC3.69 106/ulCritically low4.20-5.40The [facility] Hospitalment on above:Performed By: #### GLU1HR #### [facility] [address] [place] [address] Dr. Emilee SpringerWBC10.5 103/ulNormal4.0-11.0The [facility] CenterComment on above:Performed By: #### GLU1HR #### [facility] [address] [place] [address] Dr. Emilee SpringerCULTURE URINEon 34-14-6709ZKLQZTP URINECulture Observations: LIGHT GROWTH OF MIXED GENITAL BREN. NO POTENTIAL PATHOGENS SEEN.NormalThe [facility] CenterComment on above:Performed By: #### GLU1HR #### [facility] [address] [place] [address] Dr. Emilee SpringerGLYCOHEMOGLOBIN A1Con 75-08-0015QLV RECOMMENDATIONSEE BELOWNormal The [facility] CenterComment on above:Result Comment: ADA RECOMMENDED LIMIT 4.0 - 6.0 ADA THERAPEUTIC TARGET < 7.0 ACTION SUGGESTED > 7.0Performed By: #### A1C #### [facility] [address] [place] [address] Dr. Emilee SpringerGlucose [Mass/Vol]108 mg/dLNormalThe [facility] CenterComtrinity health [facility] on above:Performed By: #### A1C #### [facility] [address] [place] [address] Dr. Emilee SpringerHbA1c (Bld) [Mass fraction]5.4 %Normal4.5-6.2The [facility] Memorial Hospitalment on above:Performed By: #### A1C #### [facility] [address] [place] [address] Dr. Emilee Alonzo BOX TEST PT SEND OUTon 11-75-5196NWUX TO REF LAB07/04/2022 NormalThe Community Memorial Hospitalment on above:Performed By: #### NBOX #### [facility] [address] [place] [address] Dr. Emilee SpringerTYPE AND SCREENon 48-61-7686LDKF AND SCREENNegativeNoLouis Stokes Cleveland VA Medical CenterComment on above:Performed By: #### GLU1HR #### [facility] [address] [address] [address] Emilee Mcconnell PREG TVon 86-44-0152YD PREG TVEXAMINATION: US PREG TV HISTORY: test positive COMPARISON: [...] Electronically authenticated by: YELENA CARLOS Date: 2022-06-23 17:00NoLouis Stokes Cleveland VA Medical CenterHCG, Quantitative, Pregnancyon 13-75-6058cGW Qhpqz63123AvqcPHKM SENTARA OBICI HOSPITALComment on above: Non-preg premeno <=5 Postmeno <=8 Male <=3 If HCG results do not concur with clinical observations, additional testing to confirm results is recommended. Interpretation and review of laboratory resultsAbHuron Regional Medical Center ACOG PANEL 2: 21 to 29on 04-24-2022..NormalThe [facility] CenterComment on above:Performed By: #### [id number] #### [facility] [address] [address] [address] Emilee Black Gdln ACOG Cnlsotq77-11FbupcsUnrLouis Stokes Cleveland VA Medical CenterComment on above:Performed By: #### [id number] #### [facility] [address] [place] [address] Dr. Emilee SpringerDIAGNOSIS:CommentMercy HospitalComment on above: Result Comment: NEGATIVE FOR INTRAEPITHELIAL LESION OR MALIGNANCY. CELLULAR CHANGES ASSOCIATED WITH INFLAMMATION ARE PRESENT.Performed By: #### [id number] #### [facility] [address] [place] [address] Dr. Emilee SpringerMethodology:CommentMedina Hospital on above: Result Comment: This liquid based ThinPrep(R) pap test was screened with the use of an image guided system.Performed By: #### [id number] #### [facility] [address] [place] [address] Dr. Emilee SpringerNote:CommentMedina Hospital on above:Result Comment: The Pap smear is a screening test designed to aid in the detection of premalignant and malignant conditions of the uterine cervix. It is not a diagnostic procedure and should not be used as the sole means of detecting cervical cancer. Both false-positive and false-negative reports do occur. .Performed By: #### [id number] #### [address] [address] [address] Emilee SpringerPerformed by:[facility] on above: Result Comment: Mary Lou Adams CytotechnologistPerformed By: #### [id number] #### [facility] [address] [place] [address] Dr. Emilee SpringerReflex Criteria:CommentMedina Hospital on above:Result Comment: The HPV DNA reflex criteria were not met with this specimen result therefore, no HPV testing was performed. .Performed By: #### [id number] #### [facility] [address] [place] [address] Dr. Emilee SpringerSpecimen adequacy:CommentMedina Hospital on above:Result Comment: Satisfactory for evaluation. Endocervical and/or squamous metaplastic cells (endocervical component) are present.Performed By: #### [id number] #### [facility] [address] [place] [address] Dr. Emilee SpringerHCHonorio, Quantitative, Pregnancyon 42-73-3916dOW Elaxb39Yhlp<5 IU/L [facility] on above: Non-preg premeno <=5 Postmeno <=8 Male <=3 If HCG results do not concur with clinical observations, additional testing to confirm results is recommended. Elevated results not associated with may be found in patients with other diseases such as tumors of the germ cells (testis, ovaries, etc.), bladder, pancreas, stomach, lungs, and liver. Interpretation and review of laboratory resultsAbAurora Medical Center in Summit US RENAL COMPLETEOrdered By: Lorena Ricks on 58-59-6613Hynazneimcmm ultrasound of the kidneys and urinary bladder.[employer] Phone: eXAMINATION: RETROPERITONEAL ULTRASOUND OF THE KIDNEYS AND URINARY BLADDER 11/25/2020 COMPARISON: None HISTORY: ORDERING SYSTEM PROVIDED HISTORY: Frequent UTI TECHNOLOGIST PROVIDED HISTORY: This procedure can be scheduled via [employer]. Access your [employer] account by visiting [employer]. FINDINGS: Kidneys: The right kidney measures 11.1 cm in length and the left kidney measures 11.6 cm in length. Kidneys demonstrate normal cortical echogenicity. No evidence of hydronephrosis or intrarenal stones. Bladder: Unremarkable appearance of the bladder. No significant post void residual.[employer] Phone: edi, [facility] Incoming Radiant Results From [employer] - 11/25/2020 3:59 PM EDT EXAMINATION: RETROPERITONEAL ULTRASOUND OF THE KIDNEYS AND URINARY BLADDER 11/25/2020 COMPARISON: None HISTORY: ORDERING SYSTEM PROVIDED HISTORY: Frequent UTI TECHNOLOGIST PROVIDED HISTORY: This procedure can be scheduled via [employer]. Access your [employer] account by visiting [employer]. FINDINGS: Kidneys: The right kidney measures 11.1 cm in length and the left kidney measures 11.6 cm in length. Kidneys demonstrate normal cortical echogenicity. No evidence of hydronephrosis or intrarenal stones. Bladder: Unremarkable appearance of the bladder. No significant post void residual. IMPRESSION: Unremarkable ultrasound of the kidneys and urinary bladder. [employer] Phone: Formson 05-63-7892Wpvjl [id number]#1.00CD:127Western Reserve HospitalAmbulatory Clinical Summaryon 71-68-6672Gwaxypklfu Clinical Summary {18-bb-vf-mo-wc-47-70-53-l4-1i-c5-90-5a-16-ce-86}CD:[id number] [facility] Orthopaedic InstituteGeneral Surgery Office/Clinic Noteon 77-74-9637Tkljlnm Surgery Office/Clinic NoteChief Complaint post operative follow up HPI Staff 8 day post operative follow up post lap appendectomy completed while in-patient at [facility]. Doing well. Minimal discomfort. Taking Ibuprofen 400mg 1-2 times per day. Denies nausea or vomiting. No bleeding or drainage from incision site. History of Present Illness 8 days s/p LS appendectomy; pathology consistent with acute appendicitis; doing well, mild sorenesscontrolled with Ibuprofen; no drainage, from incisions; eating well, no N/V; no bowel changes, no fevers. Review of Systems PHQ Score Initial Depression Screen Score: 0 ROS - Provider Constitutional: no fever, no sweats, no weight loss. Eyes: no glasses, no blurred vision, no visual loss. ENMT: no dentures, no hoarseness, no swallowing difficulties, no hearing loss, no ear infection(s),no nose bleeds. Cardiovascular: normal blood pressure, no [...] available Patient Education Exercise to Lose Weight, Xroo-sv-Olpu Problem List/Past Medical History Ongoing Acute appendicitis Anxiety BMI 28.0-28.9,adult Seasonal allergies Historical No qualifying data Procedure/Surgical History Laparoscopic appendectomy (10/05/2020), Extraction of wisdom tooth. Medications Acidophilus Probiotic Blend, 1 cap(s), Oral, Daily cetirizine 10 mg Tab, 10 mg= 1 tab(s), Oral, Daily Shania, 1 tab(s), Oral, Daily Zoloft 50 mg Tab, 50 mg= 1 tab(s), Oral, Daily Allergies No Known Allergies Social History Alcohol Current, Wine, 3-5 times per week, 10/13/2020 Substance Abuse - Denies Substance Abuse, 10/13/2020 Tobacco Never (less than 100 in lifetime) Tobacco Use:., 10/13/2020 Family History Family history is negativermDayton Children's HospitalComment on above: Result Comment: Electronically Signed By: LATANYA MCKENNA, Sushant Simpson.nani\Date and Time Signed: 10/13/20 13:39 EDTPatient Educationon 30-02-6218Uajhyzi Education Exercise to Lose Weight Exercise and [...] minutes of exercise 4 to 6 days aweek. ? Wear shoes with good support and [...] Document Reviewed: 08/12/2011 ExitCare? Patient Information ?2014 [employer].[facility] HospitalProvider Letter FTon 52-77-3237Ztxwkpap Letter [facility] October 13, 2020 VINNY VERMA [address] [facility] [address] [place] [id number] VINNY VERMA 2000 To Whom It May Concern, Please excuse above patient from work 10/14/20. Sincerely, Dr. Sushant Lott MD General SurgeryNoKnox Community HospitalPathology Noteon 10-08-2020 Pathology [id number]#1.00CD:127[facility] HospitalFacesheeton 08-24-9508Ikfkoajci [id number]:[address] [place], [place] [address]Operative Reporton 14-57-9958Czxtcmppi Report [id number]:[address] [place], [place] [address]HIV Screenon 10-45-4674WLL Ag/AbNONREACTIVENONREACTIVEMercy Health Anderson Hospital, [place] Comment on above:No laboratory evidence of HIV infection. If acute HIV infection is suspected, consider testing for HIV-1 RNA. Basic Metabolic Panelon 77-08-6535Uguhv gap [Moles/Vol]11 mmol/L9 - 17 mmol/L [facility]- [place], KYBun/Cre Rregx37BhbtmMercy Health Anderson Hospital, KYCalcium [Mass/Vol]9.3 mg/dL8.6 - 10.4 mg/dLMercy Health Anderson Hospital, KYChloride [Moles/Vol]103 mmol/L98 - 107 mmol/LMLicking Memorial Hospital- [place], KYCO2 [Moles/Vol]23 mmol/L20 - 31 mmol/LMLicking Memorial Hospital- [place], KYCreatinine [Mass/Vol]0.57 mg/dL0.5 - 0.9 mg/dLMercy Health Anderson Hospital, KYGFR >60>60 mL/minScci Hospital Lima [place], KYGFR Non->60>60 mL/minScci Hospital Lima [place], KYGlucose [Mass/Vol]88 mg/dL70 - 99 mg/dLMercy Health Anderson Hospital, KYPotassium [Moles/Vol]4.6 mmol/L3.7 - 5.3 mmol/LMLicking Memorial Hospital- [place], KYSodium [Moles/Vol]137 mmol/L135 - 144 mmol/LMLicking Memorial Hospital- [place], KYUrea nitrogen [Mass/Vol]11 mg/dL6 - 20 mg/dLMercy Health Anderson Hospital, KYCBCon 31-31-7866Ahzeqrquwte distribution width (RBC) [Ratio]11.7 %Low11.8 - 14.4 %[facility], [place] Hematocrit (Bld) [Volume fraction]36.4 %36.3 - 47.1 %[facility], [place] Hemoglobin (Bld) [Mass/Vol]12.2 g/dL11.9 - 15.1 g/dLMercy Health Anderson Hospital, [place] Interpretation and review of laboratory resultsAbnormalMercy Health Anderson Hospital, AKMCH (RBC) [Entitic mass]31.4 pg25.2 - 33.5 pgMercy Health Anderson Hospital, AKMCHC (RBC) [Mass/Vol]33.5 g/dL28.4 - 34.8 g/dLDunkerton, KYMCV (RBC) [Entitic vol] 93.8 fL82.6 - 102.9 fLDunkerton, KYPlatelet mean volume (Bld) [Entitic vol]9.2 fL8.1 - 13.5 fLDunkerton, KYPlatelets (Bld) [#/Vol]307 10*3/uL [place], KYRBC (Bld) [#/Vol]3.88 10*6/uLLow3.95 - 5.11 m/[place], KYWBC (Bld) [#/Vol]7.2 10*3/[place], KYWBC (Bld) [#/Vol] 0.0 10*3/uL0.0 per 100 WBCDunkerton, KYMetabolic Panelon 05-04-2020 GFR/1.73 sq M predicted among non-blacks MDRD (S/P/Bld) [Vol rate/Area][place], KYComment on above:Stage 1: Some kidney damage normal GFR Stage 2: Mild kidney damage GFR 60-89 Stage 3: Moderate kidney damage GFR 30-59 Stage 4: Severe kidney damage GFR 15-29 Stage 5: Severe kidney damage GFR <15 ESRD - chronic treatment by dialysis or transplant Average GFR for 20-29 years old: 116 mL/min/1.73sq m Chronic Kidney Disease: <60 mL/min/1.73sq m Kidney failure: <15 mL/min/1.73sq m eGFR calculated using average adult body mass. Additional eGFR calculator available at: http://www.[employer]/multiple_crcl_2012.htm [facility] MEDICAL CENTERon 39-29-5356KHW Qn2.22 m[IU]/LMHouston, [place] Vital Signs Date TimeVital SignValuePerforming TzgihtnccRpyfblyj52-23-6083 15:11-0400Body mass index (BMI) [Ratio]36.7 kg/d1LnvbskclCeasar Li NP Work Phone: [facility] CenterDbjwdtgtlt02-18-1168 15:11-0400Body shplyh498.15 kgKrdaly Millererly ORGANIC CHEMISTRY TEACHER Work Phone: [facility] CenterRmxfpederv84-40-8789 15:11-0400Diastolic blood akrhavmw68 mm[Hg]Ceasar Millererly ORGANIC CHEMISTRY TEACHER Work Phone: [phone]-[facility] CenterQtazgljqop01-72-5056 15:11-0400Systolic blood anmhnbdp052 mm[Hg]Ceasar Li ORGANIC CHEMISTRY TEACHER Work Phone: [phone] [place], [place] [address]Wenilodyhn90-07-2796 15:50-0400Body mass index (BMI) [Ratio]36.64 kg/m2Amy Oralia PA Work Phone: [phone] [place], [place] [address]Mdclthmqtf54-23-5535 15:50-0400Body hrdyrz862.97 kgAmy Oralia PA Work Phone: [phone] [place], [place] [address]Bksxfboxum71-02-1926 15:50-0400Diastolic blood vwaxsggv73 mm[Hg]Regina Barton PA Work Phone: [phone] [place], [place] [address]Rsjynbsfod29-08-8732 15:50-0400Systolic blood erohnxzr597 mm[Hg]Regina Barton PA Work Phone: [phone] [place], [place] [address]Gxodphmgvf31-90-3649 15:44-0400Body mass index (BMI) [Ratio]36.61 kg/m2Amy Oralia PA Work Phone: [phone]-[facility] CenterNbrqqahrrq47-17-7091 15:44-0400Body wcpntu674.88 kgAmy Au Train PA Work Phone: [phone] [place], [place] [address]Tzmupwasjw31-87-7323 15:44-0400Diastolic blood mm[Hg]Regina Oralia PA Work Phone: [phone]-[facility] CenterKzrcqktgco88-10-1577 15:44-0400Systolic blood pmoleoiy881 mm[Hg]Regina Oralia PA Work Phone: [phone] [place], [place] [address]Nqkvqrgzzh32-55-9842 16:08-0400Body mass index (BMI) [Ratio]36.12 kg/b2Vhgcq Law DO Work Phone: [phone]-[facility] CenterVsuutipjsz11-49-3844 16:08-0400Body xbnquj340.52 kgCorey Law DO Work Phone: [phone] [place], [place] [address]Fhdaufpgeg31-31-6225 16:08-0400Diastolic blood mm[Hg]Mukul Law DO Work Phone: [phone] [place] [address]-20-2025 16:08-0400Systolic blood vvoyphlm049 mm[Hg]Mukul Law DO Work Phone: [phone] [place], [place] [address]Ggtoykiztq50-68-3707 15:58-0400Body mass index (BMI) [Ratio]35.96 kg/d3Jgsbi Law DO Work Phone: [phone] [place], [place] [address]Gzbptkquzi14-50-8880 15:58-0400Body .06 kgCorey Law DO Work Phone: [phone] [place], [place] [address]Pdwstudwcf68-96-1038 15:58-0400Diastolic blood owtpvzyl47 mm[Hg]Mukul Law DO Work Phone: [phone] [place], [place] [address]Bigcgqivwr71-41-3054 15:58-0400Systolic blood klbfpvye433 mm[Hg]Mukul Law DO Work Phone: [phone] [place], [place] [address]Uuiueuyfkd50-32-0265 14:06-0400Body mass index (BMI) [Ratio]34.99 kg/d3Hcfqp Law DO Work Phone: [phone] [address] [place], [place] [address]Hvyppovmtt81-16-7598 14:06-0400Body pbywdy47.34 kgCorey Law DO Work Phone: [phone])[facility] [place] [facility] [place], [place] [address]Hpmkpmdnuv00-66-2680 14:06-0400Diastolic blood ftvihvkf32 mm[Hg]Mukul Law DO Work Phone: 1(678)[facility] [place] [place], [place] [address]Uebctlbdxr40-02-6353 14:06-0400Systolic blood hdbdvvzy631 mm[Hg]Mukul Law DO Work Phone: 1(239)[facility] [place] [facility] [place], [place] [address]Bnkwfsogzv82-90-8842 16:41-0400Body mass index (BMI) [Ratio]34.19 kg/j7Ojsoe Law DO Work Phone: 1(855)[facility] [place] [facility] [place], [place] [address]Hdkxcdieol65-90-0653 16:41-0400Body .07 kgCorey Law DO Work Phone: [facility] CenterJmhoxrdnom27-78-0288 16:41-0400Diastolic blood elzpbqpy96 mm[Hg]Mukul Law DO Work Phone: [phone] [place], [place] [address]Ikhmindzmz79-00-4326 16:41-0400Systolic blood mm[Hg]Mukul Law DO Work Phone: [phone] [place], [place] [address]Ouatuijhup46-66-3089 16:15-0400Body mass index (BMI) [Ratio]34.22 kg/c3Wfbsw Law DO Work Phone: [phone] [place], [place] [address]Gytdhycfqd86-29-0361 16:15-0400Body ywcqci39.16 kgCorey Law DO Work Phone: [phone] [place], [place] [address]Unlmmgposg62-59-2546 16:15-0400Diastolic blood dbxttkai64 mm[Hg]Mukul Law DO Work Phone: [phone] [place], [place] [address]Vfrchhmjen93-81-2141 16:15-0400Systolic blood gpynsgsw207 mm[Hg]Mukul Law DO Work Phone: [phone] [place], [place] [address]Zswjofgqvl28-04-1538 15:15-0400Body mass index (BMI) [Ratio]33.57 kg/m2[facility]04-24-2025 15:15-0400Body .35 [facility]2025 15:15-0400Diastolic blood tazzgssv96 mm[Hg][facility]04-24-2025 15:15-0400Systolic blood drfsimvs902 mm[Hg][facility]12-23-2024 16:25-0500Body mass index (BMI) [Ratio]32.93 kg/y8Ngeio Law DO Work Phone: [phone] [place], [place] [address]Dpaludxbjh65-43-3543 16:25-0500Body iffxml22.53 kgCorey Law DO Work Phone: [phone] [place], [place] [address]Cxqpkzpiqm01-87-6149 03:06-0500Body mbimgp36.8024 kgDR MUKUL LAW .[facility] CenterComment on above:Performed By: #### AFPMAT #### [facility] [address] [place] [address] Dr. Emilee Springer Encounters Encounter DateEncounter TypeCare ProviderFacilityStart: 04-30-2025 End: 80-91-0227ldajtmzlyyVRAGKIIH EBERLYNot AvailableStart: 04-30-2025 End: 44-36-5307Fmhqhhit flow sheetCeasar Li ORGANIC CHEMISTRY TEACHER Work Phone: [facility] [place] [facility]BGYNComment on above:Third trimester ([facility]); 32 weeks gestation of ([facility])Start: 04-30-2025 End: 24-66-6134Aqvjax Dani Li ORGANIC CHEMISTRY TEACHER Work Phone: [facility]BGYNStart: 04-30-2025 End: 10-46-3000Bliuwg Dani Li ORGANIC CHEMISTRY TEACHER Work Phone: [facility] [place] [facility]BGYNStart: 04-30-2025 End: 25-14-0829Jczfyeulq Result EncounterCorevicki Foy DO Work Phone: NOCO External Department UnsolicitedStart: 04-14-2025 End: 58-90-4045nqfncsvkoiTKH RAMEYNot AvailableStart: 04-14-2025 End: 58-00-7032Qcikdqqr flow Chuy RUIZ Work Phone: [facility] OBGYNComment on above:Third trimester ([facility]); 30 weeks gestation of ([facility])Start: 04-14-2025 End: 50-76-9143Omuoyh Darek RUIZ Work Phone: [facility]BGYNStart: 04-14-2025 End: 55-21-9390Ttcbmn Darek RUIZ Work Phone: [facility]BGYNStart: 04-05-2025 End: 89-85-3479Gxicjxgbm Result EncounterRegina RUIZ Work Phone: noms External Department UnsolicitedStart: 04-05-2025 End: 41-17-8273Esilniqhw Result EncounterRegina Barton JOSEPH Work Phone: no External Department UnsolicitedStart: 04-03-2025 End: 70-93-8791effewpytnqOVB RAMEYEfrain AvailableStart: 04-03-2025 End: 22-65-8663Jcjsurni flow Chuy Barton JOSEPH Work Phone: [facility] [place] OBGYNComment on above:28 weeks gestation of ([facility]); Third trimester ([facility]); Dizziness; Gestational diabetes mellitus (GDM), antepartum, gestational diabetes method of control unspecified([facility]); History of miscarriage; Anemia, unspecified type; UTI symptomsStart: 04-03-2025 End: 45-99-9624Kscwcw kwadwoRegina Au Train PA Work Phone: [facility] [place] OBGYNStart: 04-03-2025 End: 39-00-6000Emycyn Darek Barton JOSEPH Work Phone: [facility] [place] [facility]BGYNStart: 03-12-2025 End: 27-85-1383jnjrptekzuXBHJK FAZIONot AvailableStart: 03-12-2025 End: 45-06-6114Mdwumcfd flow sheetCorey Law DO Work Phone: [facility] [place] OBGYNComment on above:25 weeks gestation of ([facility]); Second trimester ([facility]); Gastroesophageal reflux disease without esophagitisStart: 03-12-2025 End: 62-71-1150Ebsksn flowsheetCorey Law DO Work Phone: [facility]BGYNStart: 03-12-2025 End: 86-46-4318Uqljep flowsheetCorey Law DO Work Phone: [facility] [place] [facility]BGYNStart: 02-26-2025 End: 61-41-3401xvqkmgdmytHHEPM FAZIONot AvailableStart: 02-26-2025 End: 47-78-1015Dcrtlamc flow sheetCorey Law DO Work Phone: [facility] OBGYNComment on above:23 weeks gestation of ([facility]); Elevated blood sugar level; Gastroesophageal reflux disease without esophagitisStart: 02-26-2025 End: 51-61-2484Sefnjn flowsheetCorey Law DO Work Phone: [facility]BGYNStart: 02-26-2025 End: 48-69-2889Ohjxtx flowsheetCorey Law DO Work Phone: [facility]BGYNStart: 02-11-2025 End: 94-42-3675Zcaxcjwp flow sheetCorey Law DO Work Phone: NOZW BCP OBComment on above:Second trimester ([facility]); 20 weeks gestation of ([facility])Start: 02-11-2025 End: 44-49-5221nufvkgmicyZRWZK FAZIONot AvailableStart: 01-15-2025 End: 47-15-8370kxodfrcbgmCIANR FAZIONot AvailableStart: 01-15-2025 End: 93-50-1705Oaimhulz flow sheetCorey Law DO Work Phone: noms BCP OBComment on above:Second trimester ([facility]); 17 weeks gestation of ([facility]); Vaginal discharge; STD exposure; Screening, , for anatomic survey ([facility]); Gastroesophageal reflux in ([facility]); Gestational diabetes mellitus (GDM), antepartum, gestational diabetes method of control unspecified([facility])Start: 01-15-2025 End: 82-53-7977Lmwoei flowsheetCorey Law DO Work Phone: [facility] BCP OBStart: 01-15-2025 End: 66-21-9708Cxhpmj flowsheetCorey Law DO Work Phone: [facility] BCP OBStart: 01-15-2025 End: 53-39-2278Frtrztvd Result EncounterAmy Au Train PA Work Phone: noms External Department UnsolicitedStart: 01-07-2025 End: 18-77-7248wdwoqldcmrKFAWJZ M VAUGHNMercy Harlan HospitalStart: 01-07-2025 End: 67-46-5264Cwqlvactnw hospital visit by Kayden Rodriguez APRN - IUSS ACOUSTIC ANALYST Work Phone: [facility] LABStart: 12-23-2024 End: 26-85-7781Cedqvolld Result EncounterCorey Law DO Work Phone: noms External Department UnsolicitedStart: 12-23-2024 End: 68-37-4309Loxtbyljt Result EncounterCorey Law DO Work Phone: noms External Department UnsolicitedStart: 12-20-2024 End: 43-30-4526kmcmjserzqLUSUCJHallie Lamas [facility]lan HospitalStart: 12-20-2024 End: 67-64-0406Kdmhjxbacq hospital visit by [facility] UltrasoundComment on above:Subchorionic hematoma, antepartum, first trimester, not applicable or unspecified fetusStart: 12-18-2024 End: 08-46-2891iilwdykwijESDQM FAZIONot AvailableStart: 12-18-2024 End: 48-11-6795Uiaeqmhx flow sheetCorey Law DO Work Phone: [facility] BCP OBComment on above:Second trimester ; 12 weeks gestation of ; Subchorionic hematoma in first trimester, single or unspecified fetus; Diabetes mellitus screeningStart: 12-18-2024 End: 97-95-0799Pkcahk flowsheetCorey Law DO Work Phone: [facility] BCP OBStart: 12-18-2024 End: 88-01-7886Vlcfnv flowsheetCorey Law DO Work Phone: [facility] BCP OBStart: 11-14-2024 End: 35-58-1621Etrqxj outpatient visit 5 minutesNoms Bcp Ob Law NurseNOMS BCP OBComment on above:GA: 4z1qZtwzf: 11-14-2024 End: 81-71-4313dpflsjxoopSICJG FAZIONot AvailableStart: 07-15-2024 End: 79-87-3791Ueutmoj encounter procedureCorey Law DO Work Phone: noms HealthcareStart: 07-15-2024 End: 87-70-7696Lqegsghr preventive med est patient 18-39 yrsCorey Law DO Work Phone: [facility]oms BCP OBComment on above:Well woman exam with routine gynecological examStart: 07-15-2024 End: 85-62-9498usvdhupgzaZAEYG FAZIONot AvailableStart: 07-15-2024 End: 71-46-1700Kwzrfznpi Result EncounterCorey Law DO Work Phone: noms External Department UnsolicitedStart: 07-15-2024 End: 02-85-3227Wvctymgvt Result EncounterCorey Law DO Work Phone: noms External Department UnsolicitedStart: 05-20-2024 End: 44-50-8936swrqhyxhaaTCXZBHShanda Cortés HospitalStart: 05-20-2024 End: 58-66-9206Ijvrsewcpx hospital visit by Kayden Steele CNP Work Phone: mthz LaboratoryComment on above:Elevated liver enzymes; Mixed hyperlipidemiaStart: 03-06-2024 End: 06-07-9888djjkwxfizmVYIBWQHallie Cortés HospitalStart: 02-16-2024 End: 35-36-3295iwcggeaewgEBGVFPHallie Cortés HospitalStart: 08-06-2023 End: 02-86-8304rnoehqybpjKxhkbait:[facility] HospitalStart: 07-11-2023 End: 91-26-5072cwtaamfbowQPVT [facility] Hospitaltart: 03-20-2023 End: 01-84-3152yuebgwdlssKOUCR [facility] Hospitaltart: 12-17-2022 End: 85-84-1855pxcktorkayKI MUKUL LAW .Facility:M0Trrqq: 12-12-2022 End: 46-15-4838hdiokozkdxPF KYLIE SEYMOUR .Facility:H5Ykaru: 12-10-2022 End: 30-12-6198ejihqeyaryNU MUKUL LAW .Facility:M3Rvnif: 10-31-2022 End: 54-33-8817ltbirummchPV MUKUL LAW .Facility:F6Alzru: 10-22-2022 End: 97-00-7188tomndejchaLOC ORALIA .Facility:I4Ifgod: 10-15-2022 End: 59-43-4855wncvpyewnkEL MUKUL LAW .Facility:R2Sakun: 09-12-2022 End: 58-15-7690camqjfcsvxTQ MUKUL LAW .Facility:P1Imwph: 09-10-2022 End: 77-34-0902qltemyvnxeWP MUKUL LAW .Facility:F0Suqdt: 08-29-2022 End: 07-90-9627wjdgujnazvSA MUKUL LAW .Facility:E1Psvat: 08-01-2022 End: 86-02-0156Ybgiiyxpdr hospital [facility] by [facility] LaboratoryStart: 07-04-2022 End: 00-56-9786eklxwsdjigBO MUKUL LAW .Facility:H0Wzwlp: 06-23-2022 End: 04-25-3022flrfokfpbfFN YELENA Calicility:R3Umhmk: 06-09-2022 End: 88-90-7459yahcavstwxCT MUKUL LAW .Facility:L1Vizzr: 06-02-2022 End: 04-56-8546Mkyybkikel hospital visit by Kayden Steele CNP Work Phone: [facility] LaboratoryStart: 04-18-2022 End: 20-48-0308zdveezovtwPH MUKUL LAW .Facility:L4Oqfzn: 09-23-2021 End: 82-64-6266bjxxqjipuoUMGPW MICHELLE SMITHRiversDearborn County Hospitaltart: 09-08-2021 End: 73-08-5054hcauilmccfUZDKD R FAZIORiverside Mormon HospitalStart: 08-25-2021 End: 08-56-8710shiulticmqHZCPD R FAZIORiverside Mormon HospitalStart: 08-19-2021 End: 17-62-3591hqgkkgkdubNNIGO R FAZIORiverside Mormon HospitalStart: 08-10-2021 End: 34-69-8974Ldrtrhocky hospital visit by Kayden Rodriguez APRN - DMITRY Work Phone: mthz LaboratoryComment on above:AmenorrheaStart: 11-25-2020 End: 48-75-1656Qukcrsqieu hospital visit by Txgoran Ultrasound [facility] RadiologyComment on above:Frequent UTIStart: 05-04-2020 End: 13-57-1582Kuerulkusb hospital visit by Kayden Chapman LaboratoryComment on above:Encounter for screening for HIV; Other fatigue; Wellness examinationStart: 03-03-2020 End: 74-86-6607Tvejrsuxhr hospital visit by Brayden Dickinson LaboratoryComment on above:Screening for cervical cancer; Encounter for annual routine gynecological examination Procedures DateProcedureProcedure DetailPerforming ClinicianStart: 13-53-9034MB OB BPP W NON-STRESSCorey Law LIN Work Phone: Start: 95-90-6272Ergap dip stick/tablet rgnt non-auto w/o micrscpKristina Guillermo CHRISTOPHER Work Phone: Start: 29-93-5634Thgld dip stick/tablet rgnt non-auto w/o micrscpAmy Oralia RUIZ Work Phone: Start: 24-94-1385BA OB GROWTHRegina RUIZ Work Phone: Start: 03-37-2274TSI CBC WITH AUTO Nidia RUIZ Work Phone: Start: 14-84-7843Icpgu dip stick/tablet rgnt non-auto w/o micrscpAmy Oralia RUIZ Work Phone: Start: 61-81-7764Ytggx dip stick/tablet rgnt non-auto w/o micrscpCorey Law DO Work Phone: Start: 76-78-8841Jmoeo dip stick/tablet rgnt non-auto w/o micrscpCorey Law DO Work Phone: Start: 82-78-7214Bqgrd dip stick/tablet rgnt non-auto w/o micrscpCorey Law DO Work Phone: Start: 10-29-6017YFRMSSPUM VAGINITIS (HTRX)Regina RUIZ Work Phone: Start: 29-49-6146Hjwlw count complete automatedAmy Zeke Barton PA-C Work Phone: Start: 26-78-4682HN OB LESS THAN 14 WEEKS SINGLE OR FIRST GESTATIONCorey Law DO Work Phone: Start: 74-46-9472Uhvga dip stick/tablet rgnt non-auto w/o micrscpCorey Law DO Work Phone: Start: 59-15-8079Nliyr dip stick/tablet rgnt non-auto w/o micrscpCorey Law DO Work Phone: Start: 80-72-8983HCF,APTIMA HPV,AGE GDLNCorey Law DO Work Phone: Start: 72-51-3520Otzybwvsajm observation [Identifier] in Cervix by Cyto Leonora Rodriguez INVESTIGATIONS MANAGER - IUSS ACOUSTIC ANALYST Work Phone: Start: 77-23-6293Quvpb panelYnes Rodriguez INVESTIGATIONS MANAGER - IUSS ACOUSTIC ANALYST Work Phone: Start: 30-46-2809Pbitnnohsdntl metabolic Nancy Rodriguez INVESTIGATIONS MANAGER - IUSS ACOUSTIC ANALYST Work Phone: Start: 21-67-9194Syrentcphqw observation [Identifier] in Cervix by Cyto Gurjit RoomStart: 37-45-4189Rzabzsba Navid Barroso INVESTIGATIONS MANAGER - IUSS ACOUSTIC ANALYST Work Phone: Start: 59-10-6810Jnazhwcdqcob chorionic quantitative Mukul Foy MD Work Phone: Start: 13-02-2090Qwpdjrtkohal chorionic quantitative Berto Avis Live INVESTIGATIONS MANAGER - CNM Work Phone: Start: 36-55-2271Ro retroperitoneal real time w/image completeBethrupinder Ricks INVESTIGATIONS MANAGER - IUSS ACOUSTIC ANALYST Work Phone: Start: 50-19-9989Tshxanor hiv-1&hiv-2 single result Ynes Fischern Work Phone: Start: 43-83-5104Jprab of thyroid stimulating hormone tshYnes Quilesughn Work Phone: Start: 50-24-3426Zwuke metabolic panel calcium total Ynes Quilesughn Work Phone: Start: 33-83-7940Xwphd count complete automatedYnes Quilesughn Work Phone: Start: 18-45-4241Iozveclywpv observation [Identifier] in Cervix by Cyto stainYnes Fischern INVESTIGATIONS MANAGER - [facility] Work Phone: Plan of Treatment DateCare ActivityDetailAuthorStart: 17-61-3892Awjlbgbso for malignant neoplasm of cervixPap smearBon [facility] CenterStart: 50-70-7796Wjmnpgaqb for malignant neoplasm of cervixPap smearBon [facility] CenterStart: 08-07-2025 Depression ScreenDepression ScreenLifepoint HospitalsStart: 07-28-2025 End: 96-64-8243Jxaaven encounter procedureNOMS BCP OBStart: 86-74-9084Dsitj panelLipidsLifepoint HospitalsStart: 05-14-2025 End: 30-69-1037Phutbpx encounter jaxszyzpg54/22/2025 2:50 PM EDT Routine [facility] [address] [place], [id number] Mukul Foy, DO [address] [place] [address] [facility] OBGYNStart: 05-14-2025 End: 61-95-6397Pdmxlsm encounter ytagxlwcc17/22/2025 11:40 AM EDT Office Visit [facility] [address] [place] [address] Ynes Rodriguez, INVESTIGATIONS MANAGER - IUSS ACOUSTIC ANALYST [address] [place] [address] 6 month f/[facility] Primary CareComment on above:6 month f/uStart: 04-30-2025 End: 45-82-4889Zxbjzfg encounter qukklztxx61/08/2025 3:00 PM EDT Routine [facility] [address] [address] [place], [id number] Ceasar Li, ORGANIC CHEMISTRY TEACHER [address] [place] [address] [facility] OBGYNStart: 04-14-2025 End: 04-35-7316Vlmvmap encounter otmtywvbz88/22/2025 3:20 PM EDT Routine [facility] [address] [address] [place], [id number] Regina Barton PA [address] [place] [address] [facility] OBGYNStart: 04-03-2025 End: 71-40-4103Wvwxhpf encounter rvytkbnhq41/11/2025 3:30 PM EDT Routine [facility] [address] [place], [id number] Regina Barton, PA [address] [place] [address] [facility] [place] OBGYNStart: 04-03-2025 End: 01-61-7072FPA W Auto Differential panel - BloodCBC and differential Lab Routine Dizziness Anemia, unspecified type Expected: 04/03/2025 (Approximate), Expires: 04/03/2026NOTN HealthcareComment on above:Expected: 04/03/2025 (Approximate), Expires: 04/03/2026Start: 04-03-2025 End: 19-43-1204GD biophysical profile w non stress testUS biophysical profile w non stress test Imaging Routine 28 weeks gestation of ([facility]) Third trimester ([facility]) Gestational diabetes mellitus (GDM), antepartum, gestational diabetes method of control unspecified ([facility]) History of miscarriage Expected: 04/03/2025 (Approximate), Expires: 10/01/2025[facility] HealthcareComment on above:Expected: 04/03/2025 (Approximate), Expires: 10/01/2025Start: 04-03-2025 End: 73-29-8055SB for pregnancyUS OB follow up transabdominal approach Imaging Routine 28 weeks gestation of ([facility]) Third trimester ([facility]) Gestational diabetes mellitus (GDM), antepartum, gestational diabetes method of control unspecified ([facility]) History of miscarriage Expected: 04/03/2025, Expires: 08/03/2025[facility] Work Phone: comment on above:Expected: 04/03/2025, Expires: 08/03/2025Start: 90-05-4872Dkgrvzhod vaccinationLAYTON HOSPITAL HealthcareStart: 02-21-2025 Influenza vaccinationFlu vaccine (Season Ended)[facility]epoint HospitalsStart: 02-11-2025 End: 96-47-5528Vtbqsah encounter xypammsim64/22/2025 2:10 PM EDT Routine [facility] [address] [place] [id number] Mukul Foy, DO [address] [address] [facility] BCP OBStart: 02-11-2025 End: 22-63-8726Spkelafeksfz / ancillary services smamyooaqf68/22/2025 1:00 PM EDT Ancillary Procedure [facility] [address] [place] [phone] [facility] BCP OBStart: 01-15-2025 End: 87-66-5667Mtrziqk encounter oaogqmxam76/25/2025 3:50 PM EDT Routine [facility] [address] [facility] [place] [phone] Mukul Foy, DO [address] [place], [place] [id number] [facility] BCP OBStart: 01-15-2025 End: 23-24-2437Pysja fetoprotein, maternalAlpha fetoprotein, maternal Lab Routine Second trimester ([facility]) 17 weeks gestation of ([facility]) Expected: 01/15/2025 (Approximate), Expires: 07/17/2025[facility] Comment on above:Expected: 01/15/2025 (Approximate), Expires: 07/17/2025Start: 01-15-2025 End: 83-57-9204UA for pregnancyUS OB 14+ weeks anatomy scan Imaging Routine Screening, , for anatomic survey ([facility]) Expected: 01/15/2025, Expires: 04/17/2025[facility] CenterComment on above:Expected: 01/15/2025, Expires: 04/17/2025Start: 12-18-2024 End: 23-62-5769Rngqkqc encounter mtuhvcztb55/28/2025 3:40 PM EDT Routine [facility] [address] [place] [id number] Mukul Foy, DO [address] [place], [place] [id number] [facility] BCP OBStart: 12-18-2024 End: 26-71-0471BCL panel - Blood by Automated countCBC Lab Routine Diabetes mellitus screening Expected: 12/18/2024 (Approximate), Expires: 12/18/2025[facility] Work Phone: comment on above:Expected: 12/18/2024 (Approximate), Expires: 12/18/2025Start: 12-18-2024 End: 04-29-9723Tzcnuxjtlxm of glucose 1 hour after glucose challenge for glucose tolerance testGlucose tolerance, 1 hour Lab Routine Diabetes mellitus screening Expected: 12/18/2024 (Approximate), Expires: 12/18/2025NOTN HealthcareComment on above:Expected: 12/18/2024 (Approximate), Expires: 12/18/2025Start: 12-18-2024 End: 64-82-8814YA Pelvis transvaginalUS OB transvaginal Imaging Routine Subchorionic hematoma in first trimester, single or unspecified fetus Expected: 12/18/2024, Expires: 03/20/2025[facility] Work Phone: comment on above:Expected: 12/18/2024, Expires: 03/20/2025Start: 11-14-2024 End: 50-71-6869UUS/RhABO/Rh Lab Routine Missed menses , unspecified gestational age Expected: 11/14/2024 (Approximate), Expires: 11/14/2025[facility] HealthcareComment on above:Expected: 11/14/2024 (Approximate), Expires: 11/14/2025Start: 11-14-2024 End: 39-01-8324Ejfqk type and Indirect antibody screen panel - BloodType and screen Lab Routine Missed menses , unspecified gestational age Expected: 11/14/2024 (Approximate), Expires: 11/14/2025[facility] HealthcareComment on above:Expected: 11/14/2024 (Approximate), Expires: 11/14/2025Start: 11-14-2024 End: 85-52-7370Vryzo of abuse panel - Urine by Screen methodRapid drug screen, urine Lab Routine , unspecified gestational age Encounter for supervision of normal first in first trimester Expected: 11/14/2024 (Approximate), Expires: 11/14/2025[facility] HealthcareComment on above:Expected: 11/14/2024 (Approximate), Expires: 11/14/2025Start: 11-06-2024 End: 64-67-7894OF Pelvis transvaginalUS OB transvaginal Imaging Routine Missed menses Expected: 11/06/2024, Expires: 02/05/2025[facility] Work Phone: comment on above:Expected: 11/06/2024, Expires: 02/05/2025Start: 10-16-2024 End: 83-82-2611Rrstfss encounter glnbgzyyg55/26/2025 1:40 PM EDT Office Visit [address] [place], [place] [phone] Ynes Rodriguez, INVESTIGATIONS MANAGER - IUSS ACOUSTIC ANALYST [address] [place] [address] [address] [place], [place] [phone] [facility] CareComment on above:WellnessStart: 40-03-2111Qsxzxbgdxv ScreenDepression ScreenBon Secours Summa HealthStart: 06-04-2024 End: 59-54-6475Efeyvhd encounter ovaiscean40/12/2024 11:45 AM EST Office Visit [address] [place] [address] Jose Cruz Raza MD [address] [place] [address] [place] [address] wt [facility] CareComment on above:wt managementStart: 05-22-2024 End: 52-54-4181Mqrvxmh encounter buhfbdytf03/30/2024 11:00 AM EDT Office Visit [address] [place], [place] [phone] Ynes Rodriguez, INVESTIGATIONS MANAGER - IUSS ACOUSTIC ANALYST [address] [place] [address] [address] [place] [address] LFT + HLD f/u(RS 10/17/23 appt)[facility] CareComment on above:LFT + HLD f/u(RS 10/17/23 appt)Start: 58-38-4648SUOQQ-19 Vaccine ( season)COVID-19 Vaccine ( season)[facility] HospitalsStart: 12-92-4420QQYUP-19 Vaccine ( season)COVID-19 Vaccine ()Bon [facility] CenterStart: 89-35-6683Qvrbwbavv vaccinationInfluenza Vaccine (#1)[facility] HealthcareStart: 41-83-4272Lhynmandj vaccinationFlu vaccine (#1)[facility] HospitalsStart: 29-55-4591Inipwllbb for malignant neoplasm of cervixSt. Mary'S Medical [facility], [facility] Campuscy HealthStart: 98-16-6760Yffxgvuywm ScreenDepression ScreenBON EAST OHIO REGIONAL HOSPITALStart: 07-11-2022 End: 14-62-8951Lngposa encounter xgdwsyleo11/19/2022 Office Visit Primary Care Ynes Rodriguez, INVESTIGATIONS MANAGER - IUSS ACOUSTIC ANALYST [address] [place] [address] [facility] Start: 05-19-2022 End: 41-47-6145Mnmsebm encounter ceuejnvcz75/27/2022 Office Visit Obstetrics and Gynecology Berto Live APRN - CN [address] [place] [address] [facility]: 03-18-2022 End: 64-79-5921Zzptagw encounter aaxunmgas29/26/2022 Office Visit Family Medicine Ynes Rodriguez INVESTIGATIONS MANAGER - IUSS ACOUSTIC ANALYST [address] [place] [address] [facility] FAMILY [facility]Start: 04-66-7313Isgpsohsg C screeningHepatitis C screenMercy HealthComment on above:Postponed from 1998 (Patient Refused)Start: 29-72-4142Hmwiaidfm vaccinationFlu vaccine (#1)[facility]: 28-31-8271Ujgkzsbdh for Chlamydia trachomatisSumma HealthStart: 09-24-2021 Influenza vaccinationFlu vaccine (Season Ended)[facility] Work Phone: comment on above:Postponed from 03/24/2021 (Patient Refused)Start: 42-60-5333Lziknyhybi MonitoringDepression MonitoringSumma Health Start: 34-88-6260ZFQLU-19 Vaccine (3 - Booster for Pfizer series)COVID-19 Vaccine (3 - Booster for Pfizer series)[facility]: 15-56-5119VHjG/Tdap/Td vaccine (7 - Td or Tdap)DTaP/Tdap/Td vaccine (7 - Td or Tdap)[facility] Centerart: 62-19-1811KGtF/Tdap/Td vaccine (7 - Td)DTaP/Tdap/Td vaccine (7 - Td)[facility]: 01-22-5282Rfxkginqa vaccinationFlu vaccine (#1)[facility] Start: 20-76-2817Ihsaupsde for Chlamydia trachomatisChlamydia screenUC Medical Center: 48-62-0367NULKK-19 Vaccine (3 - Booster for Pfizer series) COVID-19 Vaccine (3 - Booster for Pfizer series)[facility]2021 End: 06-81-9278Mrsvlcg encounter yzzrgzpcb38/20/2021 Office Visit Family Medicine Ynes Rodriguez, INVESTIGATIONS MANAGER - IUSS ACOUSTIC ANALYST [address] [place] [address] [phone] [facility] 11-30-2020 End: 92-25-1794Xotakde encounter bzgnncmuq68/10/2021 Office Visit Urology Chris Moe MD [address], [address] [place], [place] [phone] [facility] 05-28-2020 End: 35-15-5550Oultmiubhlll36/05/2020 Telemedicine Family Medicine Ynes Rodriguez, INVESTIGATIONS MANAGER - IUSS ACOUSTIC ANALYST [address] [place] [address] [facility] Part [facility] Start: 09-92-1179Rmnedxodo vaccinationFlu vaccine (#1)[facility]: 08-05-2981Negadtzaj for Chlamydia trachomatisChlamydia [facility]: 90-21-9825Rtwveinqp for malignant neoplasm of cervixCervical cancer screenUC Medical Center: 00-81-3424Otwrsmpax C screeningHepatitis C screenBON SECOURS [facility]: 04-89-8795RMYOO-19 Vaccine (1)COVID-19 Vaccine (1)[facility] [employer] Phone: start: 49-90-3011ENP screeningHIV [facility]: 53-44-1180Mshlwadcy C screeningHepatitis C screenPromedica Memorial Hospital marinanow [facility] Phone: bacteria identified in Urine by CultureUrine culture Microbiology Routine Missed menses Ordered: 11/14/2024[facility] HealthcareComment on above:Ordered: 5Bacteria identified in Urine by CultureUrine culture Microbiology Routine UTI symptoms Ordered: 04/03/2025[facility] HealthcareComment on above:Ordered: 04/03/2025 End: 03-03-2020C.trachomatis N.gonorrhoeae DNA, Thin PrepC.trachomatis N.gonorrhoeae DNA, Thin Prep Microbiology Routine Encounter for annual routine gynecological examination 1 Occurrences starting 03/03/2020 until 03/03/2020 [place]1 Occurrences starting 03/03/2020 until 03/03/2020C.trachomatis N.gonorrhoeae DNA, Thin PrepC.trachomatis N.gonorrhoeae DNA, Thin Prep Microbiology Routine Encounter for annual routine gynecological examination 03/03/2020 5:08 PM [place], [place]CBC [place] Differential panel - BloodCBC and differential Lab Routine Missed menses , unspecified gestational age Ordered: 11/14/2024[facility] HealthcareComment on above: Ordered: 11/14/2024HLAMYDIA TRACHOMATIS (GENITO/STI)CHLAMYDIA TRACHOMATIS (GENITO/STI) Lab Routine STD exposure Ordered: 01/15/2025[facility] HealthcareComment on above:Ordered: 5Cytology Cervical or vaginal smear or scraping study Pap Smear Pathology and Cytology Routine Well woman exam with routine gynecological exam Ordered: 07/15/2024[facility] Work Phone: comment on above:Ordered: 07/15/2024 End: 07-01-3002Orhwbpgehciml procedure, preparation of smear, genital sourcePAP SMEAR Lab Routine Screening for cervical cancer 1 Occurrences starting 03/03/2020 until 03/03/2020[facility] [place]Comment on above:1 Occurrences starting 03/03/2020 until 03/03/2020Hemoglobin A1c/Hemoglobin.total in Blood Hemoglobin A1c Lab Routine Missed menses , unspecified gestational age Ordered: 11/14/2024[facility] HealthcareComment on above:Ordered: 11/14/2024Hepatitis B virus surface Ag [Presence] in Serum or Plasma by ImmunoassayHepatitis B surface antigen Lab Routine Missed menses , unspecified gestational age Ordered: 11/14/2024[facility] HealthcareComment on above:Ordered: 11/14/2024Hepatitis C virus Ab [Presence] in Serum or Plasma by ImmunoassayHepatitis C antibody Lab Routine Missed menses , unspecified gestational age Ordered: 11/14[facility] HealthcareComment on above:Ordered: 11/14/2024HIV-1/HIV-2 antigen/antibody combination immunoassayHIV-1 and HIV-2 antibodies Lab Routine Missed menses , unspecified gestational age Ordered: 11/14/2024[facility] HealthcareComment on above:Ordered: 11/14/2024Neisseria gonorrhoeae DNA [Presence] in Unspecified specimen by ANISA with probe detectionNeisseria gonorrhea DNA probe, direct Lab Routine STD exposure Ordered: 01/15/2025[facility] HealthcareComment on above:Ordered: 01/15/2025Reagin Ab [Presence] in Serum by RPRRPR Lab Routine Missed menses , unspecified gestational age Ordered: 11/14/2024[facility] HealthcareComment on above:Ordered: 11/14/2024Rubella antibody, IgGRubella antibody, IgG Lab Routine Missed menses , unspecified gestational age Ordered: 11/14/2024[facility] HealthcareComment on above:Ordered: 11/14/2024SURESWAB(R) ADVANCED VAGINITIS PLUS, TMASURESWAB(R) ADVANCED VAGINITIS PLUS, TMA Pathology and Cytology Routine Vaginal discharge Ordered: 01/15/2025 [facility] Work Phone: comment on above:Ordered: 01/15/2025US Pelvis transvaginalUS OB transvaginal Imaging Routine Missed menses 11/14/2024 2:38 PM [facility] [place] End: 19-54-5141Ez uterus 14 wk transabdl 07/24 [facility] Work Phone: Comment on above:1 Occurrences starting 12/20/2024 until 12/20/2024 Immunizations Immunization DateImmunizationNotesCare KfrhyspkDofpohfl11-05-7599VQQMP-36, Pfizer Purple top, DILUTE for use, 12+ yrs, 30mcg/0.3mL doseHannah Rodriguez INVESTIGATIONS MANAGER - IUSS ACOUSTIC ANALYST Work Phone: [facility] Work Phone: [phone]-51, Pfizer Purple top, DILUTE for use, 12+ yrs, 30mcg/0.3mL doseHannah Rodriguez INVESTIGATIONS MANAGER - IUSS ACOUSTIC ANALYST Work Phone: [facility] HealthFwqriv63-95-5027vzfgc papilloma virus vaccine, quadrivalentTri[facility], SI21-68-7037konpz papilloma virus vaccine, quadrivalentTriHealth [facility]ull[facility], AL71-59-5294ihuzp papilloma virus vaccine, quadrivalentTriHealth McCullough-[facility], [place] 97-27-4942hodiqwbuelgdc polysaccharide (groups A, C, Y and W-135) diphtheria toxoid conjugate vaccine (MCV4P)[facility], GT11-01-7407 meningococcal ACWY vaccine, unspecified formulationTriHealth McCullough-[facility], OZ69-28-4162Kmuvdbmss A Ped/Adol (Vaqta)[facility], [place] 46-17-4094mxyusirlo A vaccine, pediatric/adolescent dosage, 2 dose schedule Ynes Rodriguez [facility] Work Phone: [facility] Work Phone: [phone] toxoid, reduced diphtheria toxoid, and acellular pertussis vaccine, adsorbedTriHealth [facility]ull[facility], [place] 98-05-4529Bsqfhowet A Ped/Adol (Vaqta)[facility], [place] 48-93-5610kzuvgjicr A vaccine, pediatric/adolescent dosage, 2 dose schedule Ynes Rodriguez [facility] Work Phone: [facility] Work Phone: [phone]wejta virus vaccineTriHealth [facility]ull[facility], WL55-10-4760khsflvhjykkel polysaccharide (groups A, C, Y and W-135) diphtheria toxoid conjugate vaccine (MCV4P)[facility], [place] 00-27-8837mxajmlufvb, tetanus toxoids and acellular pertussis vaccineTriHealth [facility], WX84-68-4341cxouvas, mumps and rubella virus vaccine [facility], ZB74-45-6196yhmsbvbwwm vaccine, inactivated [facility], TH69-64-1269vsoqqqaops, tetanus toxoids and acellular pertussis vaccineTriHealth [facility], QW16-78-1003 haemophilus influenzae type b vaccine, PRP-T conjugateTriHealth [facility], UJ12-57-2930ybkuflgoge vaccine, inactivatedTriHealth [facility], VY51-48-2105gvczwci, mumps and rubella virus vaccineProMedica Bay [facility] Hospital, ZW17-68-9313adtqkttye virus vaccineTriHealth [facility], TU96-75-1984fpghnaptt B vaccine, pediatric or pediatric/adolescent dosageTriHealth [facility]ull[facility], LD15-10-1446rdsbgqifpa, tetanus toxoids and acellular pertussis vaccineTriHealth [facility], GZ05-08-9719 haemophilus influenzae type b vaccine, PRP-T conjugateTriHealth [facility], YW16-15-1227zgnnvooqqp, tetanus toxoids and acellular pertussis vaccineTriHealth [facility], TE77-01-2571nqdppnwxpes influenzae type b vaccine, PRP-T conjugateTriHealth [facility], WN19-86-8847 poliovirus vaccine, inactivatedTriHealth [facility], RU12-90-0624 haemophilus influenzae type b vaccine, PRP-T conjugateTriHealth [facility], EP96-03-1133xlcawdbsnm vaccine, inactivatedTriHealth [facility]ull[facility], MH87-54-8015jfozitqxmv, tetanus toxoids and acellular pertussis vaccineMercy Health [facility] Medical Center03-18-1999hepatitis B vaccine, pediatric or pediatric/adolescent dosageTriHealth [facility]ull[facility], BA49-45-6680 hepatitis B vaccine, pediatric or pediatric/adolescent dosageProMedica Bay [facility] Hospital, [place] Payers DatePayer CategoryPayerPolicy [id number] [facility] [id number] 2022-Present [address] [place] [address] [place] [address] [id number] Health InsuranceMEDICAL MUTUAL Member Subscriber Plan / Payer (Effective 2022-Present) Name: Vinny Downey Relation to Subscriber: Spouse Name: Abhishek Downey Date of : 1996 Address: [address] [place] [id number] Payer ID: Not on file Type: Not on file Address: [facility] [address] [place] [id number] [id number] 2.16840.1.944307.3.57[id number] 2.840.1.061154.3.579.[id number] 2.840.1.660733.3.579.2.0[id number] 2.0.1.571835.3.579.2.13386-20-0494Zhcmayv4729160 2.840.1.049960.3.579.2.98750-27-1261Pghmopy0146334 2.840.1.408055.3.579.2.43388-28-3688Iabumlj1380938 2.840.1.586160.3.579.2.88255-52-4464Kydyzkr9249870 2.840.1.710037.3.579.2.17506-14-3715Gxiuchh1838329 2.840.1.008475.3.579.2.51894-37-3525Ztkbzsl6659798 2.840.1.339546.3.579.2.28242-93-0341Loswocx4133786 2.840.1.282450.3.579.2.91786-62-5284Nzfbiir7530596 2.840.1.078421.3.579.2.92150-90-1909Lgyscrr8072960 2.840.1.036948.3.579.2.13156-91-4519Vtilwjc7025570 2.16.840.1.703561.3.579.2.44487-16-5292Fyqpdis5519603 2.16.840.1.299965.3.579.2.62235-21-4791Oymxxoh9978201 2.16.840.1.261563.3.579.2.02391-60-8495Xzeloll5424707 2.16840.1.953512.3.579.2.91881-55-5658Mqaswxb8189241 2.16840.1.936974.3.579.2.72459-11-1855Jfwogkc73824200 2.840.1.164076.3.579.2.85046-90-6665Sqcvvcw75631702 2.840.1.165731.3.579.2.95756-98-5714Gomcnnq81884562 2.840.1.823641.3.579.2.13868-21-7667Mhldidt46211622 2.840.1.120709.3.579.2.03060-40-2545Ypervam45865040 2.840.1.557008.3.579.2.68632-87-9548Tlbgtbt60943889 2.840.1.623979.3.579.2.397660-07-8216Cfniaxh59475440 2.840.1.529748.3.579.2.786399-57-5117Zxjybhs39447550 2.840.1.509058.3.579.2.762030-00-9402Bwuhhgx87381165 2.840.1.983962.3.579.2.543482-63-3430Esgdsht69203828 2.840.1.351720.3.579.2.091873-53-6838Benpdea20064658 2.16.840.1.706155.3.579.2.408796-53-1651Dcxkuoc11309241 2.16.840.1.642992.3.579.2.546240-50-7728Dbbmqjk71498192 2.16.840.1.542002.3.579.2.499737-90-3299Odgknfv1983497 2.16.840.1.952520.3.579.2.908172-70-8273Xuhxxjg0111970 2.16.840.1.634524.3.579.2.811161-16-4793Nlwuyuj2438240 2.16.840.1.582438.3.579.2.862821-64-0254Cypezdk3103743 2.16.840.1.868366.3.579.2.224754-04-6975Ibis-azf96-81-2167RicxcuyWSBQV8157497 1.2.840.906400.1.13.239.2.7.3.253976.48375-36-9800Ssglajy07173600279756-98-5939 Yjhrvff750524024278Ctgqygi7599144 2.16.840.1.970523.3.579.2.593 Social History DateTypeDetailFacilityStart: 03-03-2020 End: 57-51-6914Xcymrnj smoking status NHISNever smokerUC [facility]: 03-03-2020 End: 81-99-1975Drralbb use and exposureNever usedUC [facility]: 03-03-2020 End: 06-50-3066Uxjvher intakeCurrent drinker of alcohol (finding)[facility]: 73-83-2556Kjdcwdw CommentsocialUC [facility]: 37-87-0995Efj Assigned At BirthNot on [facility]: 05-01-2020 End: 24-14-2295Jsaiapj SDOH Dnmmxbgbq6Nryfi Health- OHMARIELAStart: 05-01-2020 End: 38-11-3705Clrhpay SDOH Food Quceh3CdwlqMercy Health Anderson HospitalMARIELAStart: 05-01-2020 History SDOH Transport Imi[address]Dr[address] [place], [place] [address]MARIELAExposure to SARS-CoV-2 (event)Not sureSumma HealthStart: 05-01-2024 End: 19-89-8597Jhlwdvwwy beverage intakeEx-drinker (finding)[facility] [employer] CompanyStart: 05-01-2024 End: 02-05-3403Tbjlusv of Social functionCarilion Roanoke Community HospitalCenterbeam, Inc. [facility] AkronAlexis Bittar [facility] CompanyStart: 05-01-2024 End: 00-93-0658Gagsqmg use panelCarilion Franklin Memorial HospitalAlexis Bittar [facility] CompanyHow hard is it for you to pay for the very basics like food, housing, medical care, and heatingNot hard at allDickenson Community Hospital Contact Solutions(I/We) worried whether (my/our) food would run out before (I/we) got money to buy more.Never trueBon Banner Ironwood Medical CenterAgent Video Intelligence [facility] CompanyStart: 01-45-2974Bln assigned at birthFemaleBon [facility]anner Ironwood Medical CenterAgent Video Intelligence [facility] CompanyStart: 05-20-2024 Gender identityIdentifies as female gender (finding)[employer] Start: 07-05-2023 End: 24-83-9737Kuabphbbb beverage intakeLifetime non-drinker (finding)[facility] HealthcareStart: 42-07-8308AfntjljdwDUPK HealthcareHas the electric, gas, oil, or water company threatened to shut off services in your home in past 12MoNoBon [facility] Ironwood Medical CenterAgent Video Intelligence [facility] CompanyStart: 24-94-5323BadJshcie (finding)[employer] [facility] Procedure CodeEquipment CodeEquipment Original TextEquipment IdentifierDatesUse as [id number]: 01-15-2025 End: 89-48-8330Byzozw 1 each under the skin [id number]: 04-07-2025 End: 07-16-2025 Goals DatePatient GoalDesired Activity/StatePersonal health goal Clinical Notes 03-20-2023 to 04-30-2025 Note Date & BscuFczgZracadax13-41-7428 History of Present illness Narrative* Ceasar Eberly, ORGANIC CHEMISTRY TEACHER - 04/30/2025 3:00 PM EDT Reason for Appointment: Patient ID: Vinny Downey [...] Frequent UTI 11/30/2020 23 weeks gestation of ([facility]) 02/26/2025 Elevated blood sugar level 02/26/2025 Resolved Ambulatory Problems Diagnosis Date Noted Missed period 01/13/2023 Past Medical History: Diagnosis Date GDM (gestational diabetes mellitus) ([facility]) HISTORY PAST MEDICAL HISTORY SOCIAL HISTORY Past Medical History: Diagnosis Date GDM (gestational diabetes mellitus) ([facility]) Social History Tobacco Use Smoking status: [...] nursing note reviewed. Exam conducted with a brace end mainspring former present. Vitals: Estimated body mass index is 36.7 kg/m as calculated from the following: Height as of 01/30/23: 5' 6 . Weight as of this encounter: 227 lb 6.4 oz. BP: 110/70 Patient's last menstrual period was 09/16/2024. ASSESSMENT & PLAN ICD-10-CM 1. Third trimester ([facility]) Z34.93 2. 32 weeks gestation of ([facility]) Z3A.32 POCT urinalysis dipstick manually resulted [...] of: Ceasar Li NP documented in this encounterSSM DePaul Health CenterDbkvytjoar80-75-9890 History of Present illness Narrative* JOSEPH Bowie - 04/14/2025 3:20 PM EDT Reason for Appointment: Patient ID: Vinny Downey [...] Frequent UTI 11/30/2020 23 weeks gestation of ([facility]) 02/26/2025 Elevated blood sugar level 02/26/2025 Resolved Ambulatory Problems Diagnosis Date Noted Missed period 01/13/2023 Past Medical History: Diagnosis Date GDM (gestational diabetes mellitus) ([facility]) HISTORY PAST MEDICAL HISTORY SOCIAL HISTORY Past Medical History: Diagnosis Date GDM (gestational diabetes mellitus) ([facility]) Social History Tobacco Use Smoking status: [...] ASSESSMENT & PLAN ICD-10-CM 1. Third trimester ([facility]) Z34.93 POCT urinalysis dipstick manually resulted 2. 30 weeks gestation of ([facility]) Z3A.30 Return OB: Patient presents today [...] behalf of: JOSEPH Bowie documented in this encounterSSM DePaul Health CenterOamlfkiopr34-67-5068 History of Present illness Narrative* JOSEPH Bowie - 04/03/2025 3:30 PM EDT Reason for Appointment: Patient ID: Vinny Downey [...] Frequent UTI 11/30/2020 23 weeks gestation of ([facility]) 02/26/2025 Elevated blood sugar level 02/26/2025 Resolved Ambulatory Problems Diagnosis Date Noted Missed period 01/13/2023 Past Medical History: Diagnosis Date GDM (gestational diabetes mellitus) ([facility]) HISTORY PAST MEDICAL HISTORY SOCIAL HISTORY Past Medical History: Diagnosis Date GDM (gestational diabetes mellitus) ([facility]) Social History Tobacco Use Smoking status: [...] PLAN ICD-10-CM 1. 28 weeks gestation of ([facility]) Z3A.28 POCT urinalysis dipstick manually resulted US OB follow up transabdominal approach US biophysical profile w non stress test 2. Third trimester ([facility]) Z34.93 POCT urinalysis dipstick manually resulted US OB follow up transabdominal approach US biophysical profile w non stress test 3. Dizziness R42 CBC and differential CBC and differential 4. Gestational diabetes mellitus (GDM), antepartum, gestational diabetes method of control unspecified ([facility]) O24.419 US OB follow up transabdominal [...] behalf of: JOSEPH Bowie documented in this encounterSSM DePaul Health CenterDlsjcsydkg87-64-6017 History of Present illness Narrative* Mukul oFy, - 03/12/2025 3:50 PM EDT Reason for Appointment: Patient ID: Vinny Downey [...] Frequent UTI 11/30/2020 23 weeks gestation of ([facility]) 02/26/2025 Elevated blood sugar level 02/26/2025 Resolved Ambulatory Problems Diagnosis Date Noted Missed period 01/13/2023 Past Medical History: Diagnosis Date GDM (gestational diabetes mellitus) ([facility]) No family history on file. Social [...] nursing note reviewed. Exam conducted with a brace end mainspring former present. Vitals: Estimated body mass index is 36.12 kg/m as calculated from the following: Height as of 01/30/23: 5' 6 . Weight as of this encounter: 223 lb 12.8 oz. BP: 100/70 Patient's last menstrual period was 09/16/2024. Assessment/Plan Encounter Diagnosis: ICD-10-CM 1. 25 weeks gestation of ([facility]) Z3A.25 POCT urinalysis dipstick manually resulted 2. Second trimester ([facility]) Z34.92 POCT urinalysis dipstick manually resulted [...] of: Mukul Foy DO documented in this encounterSSM DePaul Health CenterLkuppjubza32-27-0315 History of Present illness Narrative* Ceasar Li NP - 02/26/2025 3:30 PM EDT Reason for Appointment: Patient ID: Vinny Downey [...] Frequent UTI 11/30/2020 23 weeks gestation of ([facility]) 02/26/2025 Elevated blood sugar level 02/26/2025 Resolved Ambulatory Problems Diagnosis Date Noted Missed period 01/13/2023 Past Medical History: Diagnosis Date GDM (gestational diabetes mellitus) ([facility]) HISTORY PAST MEDICAL HISTORY SOCIAL HISTORY Past Medical History: Diagnosis Date GDM (gestational diabetes mellitus) ([facility]) Social History Tobacco Use Smoking status: [...] nursing note reviewed. Exam conducted with a brace end mainspring former present. Vitals: Estimated body mass index is 35.96 kg/m as calculated from the following: Height as of 01/30/23: 5' 6 . Weight as of this encounter: 222 lb 12.8 oz. BP: 110/70 Patient's last menstrual period was 09/16/2024. ASSESSMENT & PLAN ICD-10-CM 1. 23 weeks gestation of ([facility]) Z3A.23 POCT urinalysis dipstick manually resulted [...] of: Mukul Foy DO documented in this encounterSSM DePaul Health CenterBbwayziusq40-24-7016 History of Present illness Narrative* JOSEPH Bowie - 02/11/2025 2:10 PM EDT Reason for Appointment: Patient ID: Vinny Downey [...] History: Diagnosis Date GDM (gestational diabetes mellitus) ([facility]) HISTORY PAST MEDICAL HISTORY SOCIAL HISTORY Past Medical History: Diagnosis Date GDM (gestational diabetes mellitus) ([facility]) Social History Tobacco Use Smoking status: [...] ASSESSMENT & PLAN ICD-10-CM 1. Second trimester ([facility]) Z34.92 metFORMIN XR (Glucophage-XR) 500 MG 24 hr tablet POCT urinalysis dipstick manually resulted 2. 20 weeks gestation of ([facility]) Z3A.20 metFORMIN XR (Glucophage-XR) 500 MG [...] of: Mukul Foy DO documented in this encounterSSM DePaul Health CenterXsbugempji38-49-3723 History of Present illness Narrative* Criselda Aguirre LPN - 01/15/2025 3:50 PM EDT Reason for Appointment: Patient ID: Vinny Downey [...] History: Diagnosis Date GDM (gestational diabetes mellitus) ([facility]) HISTORY PAST MEDICAL HISTORY SOCIAL HISTORY Past Medical History: Diagnosis Date GDM (gestational diabetes mellitus) ([facility]) Social History Tobacco Use Smoking status: [...] nursing note reviewed. Exam conducted with a brace end mainspring former present. Vitals: Estimated body mass index is 34.19 kg/m as calculated from the following: Height as of 01/30/23: 5' 6 . Weight as of this encounter: 211 lb 12.8 oz. BP: 118/72 Patient's last menstrual period was 09/16/2024. ASSESSMENT & PLAN ICD-10-CM 1. Second trimester ([facility]) Z34.92 Alpha fetoprotein, maternal Alpha fetoprotein, maternal 2. 17 weeks gestation of ([facility]) Z3A.17 Alpha fetoprotein, maternal Alpha fetoprotein, maternal 3. Vaginal discharge N89.8 SURESWAB(R) ADVANCED VAGINITIS PLUS, TMA 4. STD exposure Z20.2 CHLAMYDIA TRACHOMATIS (GENITO/STI) Neisseria gonorrhea DNA probe, direct 5. Screening, , for anatomic survey ([facility]) Z36.89 US OB 14+ weeks anatomy scan 6. Gastroesophageal reflux in ([facility]) O99.619 omeprazole (PriLOSEC) [address] capsule K21.9 7. Gestational diabetes mellitus (GDM), antepartum, gestational diabetes method of control unspecified ([facility]) O24.419 glucose blood test strip Return [...] behalf of: alesha bowie documented in this encounterSSM DePaul Health CenterRouegniuwj61-21-7932 History of Present illness Narrative* JOSEPH Bowie - 12/18/2024 3:40 PM EDT Reason for Appointment: Patient ID: Vinny Downey [...] Documented by JOSEPH Bowie documented in this encounterSSM DePaul Health CenterDxwsshjfei13-93-9990 History of Present illness Narrative* Elizabeth Ware MA - 11/14/2024 2:30 PM EDT Reason for Appointment: Patient ID: Vinny Downey [...] Nurse Note: Patient uncertain of doing the [place] screening. Pt was advised both labs and unity have todone in case mind is changed. PVU. Pt [...] drink 6-8 glasses of water a day, eatno raw or undercooked meat, and stay away from [facility]. Patient has also been advised to not change litter boxes and eat 6 small meals a day. Patient has been consulted regarding the do's and don'ts ofpregnancy. Patient was given labs and all questions [...] by: Elizabeth Ware MA documented in this encounterSSM DePaul Health CenterObtaxqxfgw64-43-4575 History of Present illness Narrative* Elizabeth Ware MA - 07/15/2024 4:00 PM EST Reason for Appointment: Patient ID: Vinny Downey [...] nursing note reviewed. Exam conducted with a brace end mainspring former present. Vitals: Estimated body mass index is [...] of: Mukul Foy DO documented in this encounterSSM DePaul Health [id number] NoteHNO ID: [id number] Author: LANG CARREON APRN.IUSS ACOUSTIC ANALYST Service: ? Author Type: Nurse Practitioner Type: Progress Notes Filed: 08/06/2023 10:44 Note Text: Telemedicine Visit - Distance Health Virtual Visit Note I have communicated my name and active licensure. The patient's identity and physical location were verified at the time of this visit. Either the patient or their legal motor vehicle representative has been informed of the risks and benefits of -- and alternatives to -- treatment through a remote evaluation and consents to proceed with the evaluation remotely. Patient seen on virtual platforms, [employer]. Location of patient: [place] History of [...] - Sleep with head elevated due to gyil-mzvyz-kafh increases cough - Continue Flonase - Flonase: [...] care - All questions answered Lang Carreon APRN.[facility]12-19-2023 NoteUT Electrophysiology Consult Note Reason for visit: bradycardia [...] Sheffield MD Cardiac Electrophysiology [facility]12-19-2023 NotePatient here for follow up event monitor. Echo was not performed that was ordered at last apt in Feb 2023 by Israel Champion CNP. Does not notice palpitations as often. Denies chest pain, SOB, and lightheadedness. Review of Systems Cardiovascular: Positive for palpitations (less often). All other systems reviewed and are negative.[facility] 03-30-2023 Note-developed anemia s/p -hgb 10.8 per recent labsUnSelect [facility]09-07-2023 Note- could be related to being , anemia -monitor and echo to rule out cardiac concernUn[facility] 03-30-2023 Note- takes sertraline 50 mg dailyUn[facility] 03-30-2023 Note- 30-day event monitor - we will hold off on starting medication until follow-upUnSelect [facility]08-28-2023 NoteNew patient here to establish care. Ref from Dr. Foy for bradycardia. She is 8 weeks . Had ECG last week. Symptoms started after baby was born. She feels palpitations. Did lose a lot of blood with , requiring transfusion. Denies chest pain and SOB. Review of Systems Cardiovascular: Positive for palpitations. Neurological: Positive for headaches. All other systems reviewed and are negative.[facility] 03-20-2023 NoteUT Electrophysiology Consult Note Reason for visit: new [...] images are attached to (more content not included)...[facility]* Diagnosis Frequent UTI Urinary tract infection, site not specified documented in this encounter [employer] Phone: evaluation note* Diagnosis Amenorrhea Absence of menstruation documented in this encounter [employer] Phone: evaluation note* Diagnosis Elevated liver enzymes Nonspecific elevation of levels of transaminase or lactic acid dehydrogenase (LDH) Mixed hyperlipidemia documented in this encounter [facility]* Diagnosis Well woman exam with routine gynecological exam Routine gynecological examination documented in this encounter [facility]* Diagnosis Missed menses 8 weeks gestation of , unspecified gestational age Encounter for supervision of normal first in first trimester History of miscarriage Personal history of other genital system and obstetric disorders documented in this encounter [facility]* Diagnosis Second trimester state, incidental 12 weeks gestation of Subchorionic hematoma in first trimester, single or unspecified fetus Diabetes mellitus screening Screening for diabetes mellitus documented in this encounter [facility]* Diagnosis Subchorionic hematoma, antepartum, first trimester, not applicable or unspecified fetus [facility] Diagnosis Second trimester (HHS-HCC) state, incidental 17 weeks gestation of (HHS-HCC) Vaginal discharge Leukorrhea, not specified as infective STD exposure Screening, , for anatomic survey ([facility]) Encounter for anatomic survey Gastroesophageal reflux in ([facility]) Gestational diabetes mellitus (GDM), antepartum, gestational diabetes method of control unspecified([facility]) documented in this encounter [facility]* Diagnosis Second trimester (HHS-HCC) state, incidental 20 weeks gestation of (HHS-HCC) documented in this encounter [facility]* Diagnosis 23 weeks gestation of (HHS-HCC) Elevated blood sugar level Other abnormal glucose Gastroesophageal reflux disease without esophagitis Esophageal reflux documented in this encounter [facility]* Diagnosis 25 weeks gestation of (HHS-HCC) Second trimester (HHS-HCC) state, incidental Gastroesophageal reflux disease without esophagitis Esophageal reflux documented in this encounter [facility]* Diagnosis 28 weeks gestation of (HHS-HCC) Third trimester (HHS-HCC) state, incidental Dizziness Dizziness and giddiness Gestational diabetes mellitus (GDM), antepartum, gestational diabetes method of control unspecified([facility]) History of miscarriage Personal history of other genital system and obstetric disorders Anemia, unspecified type UTI symptoms documented in this encounter [facility]* Diagnosis Third trimester (HHS-HCC) state, incidental 30 weeks gestation of (HHS-HCC) documented in this encounter [facility]* Diagnosis Third trimester (HHS-HCC) state, incidental 32 weeks gestation of (HHS-HCC) documented in this encounter [facility] HealthcareReason for visit Narrative* Imaging (Routine) - OpenSpecialty Diagnoses / ProceduresReferred By ContactReferred To ContactRadiology Diagnoses Subchorionic hematoma, antepartum, first trimester, not applicable or unspecified fetus Procedures US OB LESS THAN 14 WEEKS SINGLE OR FIRST GESTATION W DOPPLER US OB TRANSVAGINAL Mukul Foy MD [address] [place] [address] Phone: tel: Referral IDStatusReasonStart DateExpiration DateVisits RequestedVisits [id number]/29/20255/ [facility] Health Assessments Diagnosis Screening for cervical cancer Screening for malignant neoplasm of the cervix Encounter for annual routine gynecological examination Diagnosis Encounter for screening for HIV Other fatigue Wellness examination Advance Directives No Advanced Directives Records FoundDocuments on File TypeDate RecordedPatient RepresentativeExplanationAdvance Directives and Living WillPower of AttorneyTypeDate RecordedPatient RepresentativeExplanationACP- Advance DirectiveACP-Power of AttorneyTypeDate RecordedPatient Electric Motor Mechanic ExplanationACP-Advance DirectiveACP-Power of Switch Cleaner Summary Purpose Family History No Family History Records FoundNo Family History Records FoundNo Family History Records FoundNo Family History Records FoundNo Family History Records FoundNo Family History Records FoundNo Family History Records Found Reason for Referral StatusReasonSpecialtyDiagnoses / ProceduresReferred By ContactReferred To ContactClosedRadiology Diagnoses Frequent UTI Procedures US RENAL COMPLETE Lorena Ricks, INVESTIGATIONS MANAGER - IUSS ACOUSTIC ANALYST [address] [place] [address] Additional Source Comments INFORMATION SOURCE (unrecogn ized section and content) DATE CREATED AUTHOR 10/14/2020 [facility] DATE CREATED AUTHOR AUTHOR'S ORGANIZ ATION 09/26/2021 [facility] DATE CREATED AUTHOR AUTHOR'S ORGANIZ ATION 12/30/2022 [facility] DATE CREATED AUTHOR AUTHOR'S ORGANIZ ATION 08/03/2023 [facility] DATE CREATED AUTHOR AUTHOR'S ORGANIZ ATION 08/07/2023 [facility] DATE CREATED AUTHOR AUTHOR'S ORGANIZ ATION 01/09/2025 [facility] DATE CREATED AUTHOR AUTHOR'S ORGANIZ ATION 05/03/2025 [facility] EPIC Reason for Visit (unrecogniz ed section and content) StatusReasonSpecialtyDiagnoses / ProceduresReferred By ContactReferred To ContactClosedRadiology Diagnoses Frequent UTI Procedures US RENAL COMPLETE Lorena Ricks, INVESTIGATIONS MANAGER - [facility] [address] [place] [address] ReasonCommentsGynecologic ExamReasonCommentsAmenorrheaReasonCommentsRoutine VisitReasonCommentsRoutine VisitSTI Screening Care Teams (unrecognized sec tion and content) Team MemberRelationshipSpecialtyStart DateEnd Date Ynes Rodirguez, INVESTIGATIONS MANAGER - IUSS ACOUSTIC ANALYST [address] [place] [address] PCP - GeneralFamily Nurse Cleattszwvhg52/12/20Team MemberRelationshipSpecialty Start DateEnd Date Ynes Rodriguez INVESTIGATIONS MANAGER - [facility] [address] [place] [address] PCP - GeneralFamily Nurse Lnarquqofyax28/12/20Team MemberRelationshipSpecialty Start DateEnd Date Ynes Rodriguez INVESTIGATIONS MANAGER [facility] [address] [place] [address] [address] [place] [address] PCP - GeneralFamily Nurse Practitioner08/02/22Team MemberRelationshipSpecialty Start DateEnd Date Ynes Rodriguez INVESTIGATIONS MANAGER [facility] [address] [place] [address] [address] [place] [address] PCP - GeneralFamily Nurse Practitioner08/02/22Team MemberRelationshipSpecialty Start DateEnd Date Ynes Rodriguez INVESTIGATIONS MANAGER [facility] [address] [place] [address] [address] [place] [address] PCP - GeneralFamily Nurse Practitioner08/02/22 FOR RECORDS PERTAINING TO PATIENTS WHO ARE [...] BE BASED ON THE PRIMARY CLINICAL RECORDS. [facility]. provides no warranty or guarantee of the accuracy or completeness of information in this document.
--- OUTSIDE RECORDS SUMMARY | 2025-05-14 15:57 | XMS_ITS | Encounter Summary ---
Author Organization [facility] Address [address], [address] [place] [address] Care Team Providers Care Clinical Abstractor Name Role Phone Ynes Mistry APPLICATION SOFTWARE DEVELOPER - CABLE DISPATCHER Primary Care Provide r Encounter Details DateTypeDepartmentCare Team (Latest Contact Info)Rstsdqjtutx54/21/2025Orders Only [facility] Primary Care [address] [place] [address] [address] [place] [id number] Provider, MD Yuval Social History Tobacco UseTypesPacks/DayYears UsedDateSmoking Tobacco: NeverSmokeless Tobacco: NeverAlcohol UseStandard Drinks/WeekCommentsNot Currently0 (1 standard drink = 0.6 oz pure alcohol)[facility] UtilitiesAnswerDate RecordedIn the past 12 months has the electric, gas, oil, or water company threatened to shut off services in your home?No10/07/2024Overall Financial Resource Strain (CARDIA)AnswerDate RecordedHow hard is it for you to pay for the very basics like food, housing, medical care, and heating?Not hard at all07/13/2023HQ-2AnswerDate RecordedPHQ-9 Total Ycphm191Hunger Vital SignAnswerDate RecordedWithin the past 12 months, you worried that your food would run out before you got the money to buy more.Never true10/07/2024Within the past 12 months, the food you bought just didn't last and you didn't have money to get more.Never true10/07/2024PRAPARE - TransportationAnswerDate RecordedIn the past 12 months, has lack of transportation kept you from medical appointments or from getting medications?No 10/07/2024In the past 12 months, has lack of transportation kept you from meetings, work, or from getting things needed for daily living?No10/07/2024 Housing Stability Vital SignAnswerDate RecordedUnable to Pay for Housing in the Last YearNot on file07/13/2023Number of Places Lived in the Last YearNot on file 07/13/2023In the last 12 months, was there a time when you did not have a steady place to sleep or slept in ashelter (including now)?No07/13/2023Housing Stability Vital SignAnswerDate RecordedIn the last 12 months, was there a time when you were not able to pay the mortgage or rent on time?No10/07/2024In the past 12 months, how many times have you moved where you were living? At any time in the past 12 months, were you homeless or living in a retirement (including now)?No10/07/2024Food InsecurityAnswerDate RecordedWithin the past 12 months, you worried that your food would run out before you got the money to buy more.Within the past 12 months, the food you bought just didn't last and you didn't have money to get more.CommentsNoSex and Gender InformationValueDate RecordedSex Assigned at AciziVswnpe50/28/2024 8:24 PM EDTLegal TtpTixbcp26/10/2013 3:31 PM ESTGender HgttwxohYxwcqr57/28/2024 8:24 PM EDTSexual OrientationNot on filedocumented as of this encounter Plan of Treatment Not on file documented as of this encounter Procedures Procedure NamePriorityDate/TimeAssociated DiagnosisCommentsCHG BIOPHYSICAL PROFILE NON-STRESS RDJSVHBDglgljm61/15/2025 3:54 PM EDTdocumented in this encounter Results * CHG BIOPHYSICAL PROFILE NON-STRESS TESTING (05/07/2025 3:54 PM EDT) Narrative Authorizing ProviderResult TypeResult StatusHistorical Provider MDPR IMAGING Final Result documented in this encounter Visit Diagnoses Not on filedocumented in this encounter Care Teams Team MemberRelationshipSpecialtyStart DateEnd Date Ynes Mistry, APPLICATION SOFTWARE DEVELOPER - CABLE DISPATCHER [address] [facility] [place] [phone] PCP - GeneralFamily Nurse Practitioner08/02/22documented as of this encounter
--- OUTSIDE RECORDS SUMMARY | 2025-05-14 15:58 | XMS_ITS | Encounter Summary ---
Author Organization [facility] Address [address] [place] [address] Care Team Providers Care Manager Distribution Name Role Phone Unavailable Primary Care Provider Unavailabl e Encounter Details DateTypeDepartmentCare Team (Latest Contact Info)Rvdivilmbth80/10/2025bstract DIANE SANTO [address] [place] [address] Mukul Foy [address] [place], [facility] Social History Tobacco UseTypesPacks/DayYears UsedDateSmoking Tobacco: NeverSmokeless Tobacco: NeverAlcohol UseStandard Drinks/WeekCommentsNever0 (1 standard drink = 0.6 oz pure alcohol)Estimated Date of GadoeltrQrwppqxzZwt50/01/2025Based on last menstrual period of 09/16/2024Sex and Gender InformationValueDate Recorded Sex Assigned at BirthNot on fileLegal HvlConpuy28/15/2023 11:47 PM EDTGender IdentityNot on fileSexual OrientationNot on filedocumented as of this encounter Plan of Treatment DateTypeDepartmentCare Team (Latest Contact Info)Heitomdzvik90/05/2025 2:00 PM ESTAncillary Procedure DIANE SANTO [facility] [place] [address] 05/28/2025 2:30 PM ESTRoutine DIANE SANTO [address] [place] [phone] Regina Barton PA [address] [place] [address] 07/28/2025 4:00 PM ESTOffice Visit [facility] Heri SANTO [address] [place] [phone] Mukul Foy DO [address] [place], [place] [id number] documented as of this encounter Goals GoalPatient Goal TypeAssociated ProblemsRecent ProgressPatient-Stated?Author Reminders Care PlanOB RemindersNoOpen Scheduling, Backgrounddocumented as of this encounter Visit Diagnoses Not on filedocumented in this encounter Additional Health Concerns Active ProblemsNoted DateDiagnosed DateOB Rjmztqthb77/09/2025 documented as of this encounter
--- OUTSIDE RECORDS SUMMARY | 2025-05-14 15:58 | XMS_ITS | Encounter Summary ---
Author Organization [facility] Address [address] [place] [address] Care Team Providers Care Epic Ambulatory Analyst Name Role Phone Unavailable Primary Care Provider Unavailabl e Encounter Details DateTypeDepartmentCare Team (Latest Contact Info)Kiafwoifwwj79/08/2025amboo flowsheet NOMRenzo SANTO [address] [place] [address] Tiffany Li, MACHINE TOOL TECHNOLOGY INSTRUCTOR [address] [place] [address] Social History Tobacco UseTypesPacks/DayYears UsedDateSmoking Tobacco: NeverSmokeless Tobacco: NeverAlcohol UseStandard Drinks/WeekCommentsNever0 (1 standard drink = 0.6 oz pure alcohol)Estimated Date of AoqtcxtaZlewyexnHlq90/01/2025Based on last menstrual period of 09/16/2024Sex and Gender InformationValueDate Recorded Sex Assigned at BirthNot on fileLegal DvrUauqcw72/15/2023 11:47 PM EDTGender IdentityNot on fileSexual OrientationNot on filedocumented as of this encounter Plan of Treatment DateTypeDepartmentCare Team (Latest Contact Info)Atrozlgabgq99/05/2025 2:00 PM ESTAncillary Procedure NOMRenzo [address]ANTO [address] [place] [address] 05/28/2025 2:30 PM ESTRoutine NOMRenzo SANTO [address] [place] [phone] Regina Barton PA [address] [place] [address] 07/28/2025 4:00 PM ESTOffice Visit [facility] Clemencia SANTO [address] [place] [phone] Mukul Foy DO [address] [place], [place] [phone] documented as of this encounter Goals GoalPatient Goal TypeAssociated ProblemsRecent ProgressPatient-Stated?Author Reminders Care PlanOB RemindersNoOpen Scheduling, Backgrounddocumented as of this encounter Visit Diagnoses Not on filedocumented in this encounter Additional Health Concerns Active ProblemsNoted DateDiagnosed DateOB Ujhbpjmuc19/09/2025 documented as of this encounter
--- OUTSIDE RECORDS SUMMARY | 2025-05-14 15:58 | XMS_ITS | Encounter Summary ---
Author Organization [facility] Address [address] [place] [address] Care Team Providers Care Drafter Construction Name Role Phone Unavailable Primary Care Provider Unavailabl e Encounter Details DateTypeDepartmentCare Team (Latest Contact Info)Gdhrosqjqmn70/22/2025amboo flowsheet NOM[facility]zo SANTO [address] [place] [address] Mukul Foy DO [address] [facility] [address] [place], [facility] Social History Tobacco UseTypesPacks/DayYears UsedDateSmoking Tobacco: NeverSmokeless Tobacco: NeverAlcohol UseStandard Drinks/WeekCommentsNever0 (1 standard drink = 0.6 oz pure alcohol)Estimated Date of UxgrfkcaBpmsojewBww08/01/2025Based on last menstrual period of 09/16/2024Sex and Gender InformationValueDate Recorded Sex Assigned at BirthNot on fileLegal YykKzpzod62/15/2023 11:47 PM EDTGender IdentityNot on fileSexual OrientationNot on filedocumented as of this encounter Plan of Treatment DateTypeDepartmentCare Team (Latest Contact Info)Yjglbeuscpv56/05/2025 2:00 PM ESTAncillary Procedure NOMRenzo [address]ANTO [address] [place] [address] 05/28/2025 2:30 PM ESTRoutine NOMRenzo [address]ANTO [address] [place] [address] Regina Barton PA [address] [facility] [address] [place], [place] [phone] 07/28/2025 4:00 PM ESTOffice Visit [facility] Heri SANTO [address] [place] [address] Mukul Foy DO [address] [facility] [address] [place], [place] [address] documented as of this encounter Goals GoalPatient Goal TypeAssociated ProblemsRecent ProgressPatient-Stated?Author Reminders Care PlanOB RemindersNoOpen Scheduling, Backgrounddocumented as of this encounter Visit Diagnoses Not on filedocumented in this encounter Additional Health Concerns Active ProblemsNoted DateDiagnosed DateOB Zkkztpeuj54/09/2025 documented as of this encounter
--- OUTSIDE RECORDS SUMMARY | 2025-05-14 15:58 | XMS_ITS | Encounter Summary ---
Author Organization [facility] Address [address] [place] [place] [address] Care Team Providers Care Customer Support Agent Name Role Phone Unavailable Primary Care Provider Unavailabl e Encounter Details DateTypeDepartmentCare Team (Latest Contact Info)Suxdfncukjb76/08/2025Clinisync Result Encounter [facility] Department Unsolicited Britt Foy DO [address] [facility] [address] [place], [facility] Social History Tobacco UseTypesPacks/DayYears UsedDateSmoking Tobacco: NeverSmokeless Tobacco: NeverAlcohol UseStandard Drinks/WeekCommentsNever0 (1 standard drink = 0.6 oz pure alcohol)Estimated Date of UijciphvZzvpuzwdUrc72/01/2025Based on last menstrual period of 09/16/2024Sex and Gender InformationValueDate Recorded Sex Assigned at BirthNot on fileLegal TfcOpsuxu63/15/2023 11:47 PM EDTGender IdentityNot on fileSexual OrientationNot on filedocumented as of this encounter Plan of Treatment DateTypeDepartmentCare Team (Latest Contact Info)Oiuqbgfizgs52/05/2025 2:00 PM ESTAncillary Procedure [facility] [place] [facility] [address] [place] [address] 05/28/2025 2:30 PM ESTRoutine [facility] [place] [facility] [address] [facility] [address] [address] Regina Barton PA [address] [place] [address] 07/28/2025 4:00 PM ESTOffice Visit [facility] [place] JOHNSONGYN [address] [facility] [address] [place] [phone] Britt Foy, DO [address] [facility] [address] [place] [address] documented as of this encounter Goals GoalPatient Goal TypeAssociated ProblemsRecent ProgressPatient-Stated?Author Reminders Care PlanOB RemindersNoOpen Scheduling, Backgrounddocumented as of this encounter Procedures Procedure NamePriorityDate/TimeAssociated DiagnosisCommentsUS OB BPP W NON-ZIZBID7904/30/2025 10:59 PM EDT documented in this encounter Results * US OB BPP W NON-STRESS (04/30/2025 10:59 PM EDT)Anatomical Region LateralityModalityOtherSpecimen (Source)Anatomical Location / Laterality Collection Method / VolumeCollection TimeReceived Time04/30/2025 10:59 PM EDT Narrative 04/30/2025 11:02 PM EDT [facility] ?[address] ? [place] [address] ? Ultrasound Report ? Signed ? Patient: VINNY HERRERA ?MR#: [id number] ?? : 2000 ?Acct:[id number] ?? Age/Sex: 24 / F ?ADM Date: 04/30/25 ?? Loc: US ? Attending Dr: Britt Foy D.O. ? Ordering Physician: Britt Foy D.O. ?? Date of Service: 04/30/25 ?? Procedure(s): US OB BPP w non-stress ?? Accession Number(s): [id number] ? cc: Britt Foy D.O.; Ynes Mistry NP ? [facility] ? [address] ? [place] [address] ? Patient Name: ?? VINNY HERRERA ? MRN: [facility]:[id number] ? date: 2000 ?Sex: F ?? Assigned Patient Location: [facility] ?? Current Patient Location: ? Accession/Order Number: [id number] ?? Exam Date: 04/30/2025 ??15:57 ?Report Date: 04/30/2025 ??22:59 ? At the request of: ?? BRITT ??LAW ??DO ? Procedure: ??US OB BPP w non-stress ? Ultrasound biophysical profile ? INDICATION: Gestational diabetes ? COMPARISON: 04/05/2025 ? FINDINGS/IMPRESSION:: Fetus cephalic position. ?? 02/28 score biophysical ?? profile. ?? heart rate 145 beats per minutes. ??JAMAL 12.7 cm. ? Impression dictated by: Chevy Moreland M.D. ??04/30/2025 10:59 PM ? Dictation Location: RADIO-PC-29 ? Electronically authenticated by: [id number] ??Y ?? Date: 04/30/2025 ??22:59 ? Dictated By: ?Chevy Moreland M.D. ? Signed By: ?04/30/252301 ? DD/ 2259 ? TD/TT: ? Deadener: Procedure Note Radiology, RadiologistMD - 04/30/2025 [place] [address] Ultrasound Report Signed Patient: VINNY HERRERA CMR#: [id number] : 2000Acct:[id number] Age/Sex: 24 FADM Date: 04/30/25 Loc: US Attending Dr: Britt Foy D.O. Ordering Physician: Britt Foy D.O. Date of Service: 04/30/25 Procedure(s): US OB BPP w non-stress Accession Number(s): [id number] cc: Britt Foy D.O.; Ynes Mistry NP The [address] [address] Patient Name: VINNY HERRERA MRN: [id number] date: 2000 Sex: F Assigned Patient Location: [facility] Current Patient Location: Accession/Order Number: [id number] Exam Date: 04/30/2025 15:57 Report Date: 04/30/2025 22:59 At the request of: BRITT FOY DO Procedure: US OB BPP w non-stress Ultrasound biophysical profile INDICATION: Gestational diabetes COMPARISON: 04/05/2025 FINDINGS/IMPRESSION:: Fetus cephalic position. 02/28 score biophysical profile. heart rate 145 beats per minutes. JAMAL 12.7 cm. Impression dictated by: Chevy Moreland M.D. 04/30/2025 10:59 PM Dictation Location: [facility] Electronically authenticated by: [id number] Y Date: 2:59 Dictated By: Chevy Moreland M.D. Signed By:04/30/25 2302 DD/ 225 TD/TT: Deadener: Authorizing ProviderResult TypeResult StatusCorey Law DOCLINISYNC IMAGINGFinal Result documented in this encounter Visit Diagnoses Not on filedocumented in this encounter Additional Health Concerns Active ProblemsNoted DateDiagnosed DateOB Whrmjhiod05/09/2025 documented as of this encounter
--- OUTSIDE RECORDS SUMMARY | 2025-05-14 15:58 | XMS_ITS | Clinical Summary ---
Author Organization [facility] Address [address] [place], [place] [id number] Care Team Providers Care City Bus Driver Name Role Phone Unavailable Primary Care Provider Unavailabl e Allergies No known active allergies Medications MedicationSigDispense QuantityRefillsLast FilledStart DateEnd DateStatus benzonatate (TESSALON PERLE) 100 mg capsule Take 1-2 capsules every 8 hours as needed. 60 capsule 4Active Active Problems No known active problems Social History Tobacco UseTypesPacks/DayYears UsedDateSmoking Tobacco: Never Assessed CommentsUnknownSex and Gender InformationValueDate RecordedSex Assigned at Not on fileLegal BtiSkaxrj57/14/2024 10:20 AM ESTGender IdentityNot on file Sexual OrientationNot on file Plan of Treatment Health MaintenanceDue DateLast DoneCommentsPeds To Adult Transition Initial Hbkfvaiayf58/17/2011Peds To Adult Transition Annual Sehiwlzemk51/17/2013nxiety Emsylevpd48/17/2017Depression Higdxjnqc99/17/2017HIV Zbybdasie37/17/2017 Hepatitis C Couervqcd52/17/2017Cervical Cancer Utshspuuh00/17/2020DTaP,Tdap,Td Vaccine (7 - Td or Tdap), 11/20/2003, 03/13/2000, Additional history existsCovid-19 Vaccine ( season)/02/2021, 12/07/2020Influenza Vaccine (#1)2025Hepatitis B VaccineCompleted 06/09/1999, 2000, 1998HPV HpxyezzUcpyhdikc12/28/2018, 05/01/2017, 02/24/2017 Insurance
--- OUTSIDE RECORDS SUMMARY | 2025-05-14 15:58 | XMS_ITS | Clinical Summary ---
Author Organization [facility] Healthcare Address [address] [place] [address] Care Team Providers Care Ceo Name Role Phone Unavailable Primary Care Provider Unavailabl e Allergies No known active allergies Medications MedicationSigDispense QuantityRefillsLast FilledStart DateEnd DateStatus sertraline (Zoloft) 50 MG tablet Indications:Anxiety, generalizedTAKE 1 TABLET BY MOUTH EVERY DAY IN THE MORNING 30 tablet 304/5Active glucose blood test strip Indications:Gestational diabetes mellitus (GDM), antepartum, gestational diabetes method of control unspecified([facility])Use as instructed 100 each 1206//343271/6Active metFORMIN XR (Glucophage-XR) 500 MG 24 hr tablet Indications:Second trimester ([facility]),20 weeks gestation of ([facility])Take 2 tablets (1,000 mg) by mouth in the evening. Take with meals 60 tablet 50//262775/6Active pantoprazole (Protonix) 40 MG EC tablet Indications:23 weeks gestation of ([facility]),Elevated blood sugar level ,Gastroesophageal reflux disease without esophagitisTake 1 tablet (40 mg) by mouth in the morning. Take before meals. Do not crush, chew, or split. 30 tablet 1108//154139/6Active metoclopramide (Reglan) 10 MG tablet Indications:Gastroesophageal reflux disease without esophagitisTake 1 tablet (10 mg) by mouth in the morning and 1 tablet (10 mg) at noon and 1 tablet (10 mg) in the evening. Take before meals. Take 1 tablet by mouth 30 minutes prior to meals 3 times daily as needed for nausea. 90 tablet 5Active insulin pen needle 29G x 8mm [facility] [place] Indications:Insulin controlled gestational diabetes mellitus (GDM) during , antepartum ([facility])Inject 1 each under the skin Daily 100 each 515Active insulin glargine (Lantus SoloStar) 100 UNIT/ML pen Indications:HyperglycemiaInject 15 Units under the skin at bedtime FILL ACCORDING TO INSURANCE COVERAGE 3 mL /5Active iron polysaccharides (ProFe) 391.3 (180 Fe) MG capsule Indications:DizzinessTake 1 capsule (391.3 mg) by mouth Daily 30 capsule 60951Expired Additional Information Patient not taking.Reported on 04/03/2025 insulin glargine (Lantus SoloStar) 100 UNIT/ML pen Indications:HyperglycemiaInject 10 Units under the skin at bedtime FILL ACCORDING TO INSURANCE COVERAGE 3 mL Discontinued(Reorder) Active Problems ProblemNoted DateDiagnosed Date23 weeks gestation of ([facility]) 02/26/2025Elevated blood sugar level02/26/2025bnormal glucose level01/13/2023 Myouvkwqj11/23/7122Pzsybxumyvx48/23/2023Dyspareunia in ojoqav0211/30/2020Frequent UTI11/30/20206720Cozdqgh60/07/2020Insomnia due to other mental fiicdetn92/10/2020 Other nspbkpe1005/02/2020Estimated Date of WpoypiukWncpbwweAok59/01/2025 Based on last menstrual period of 09/16/2024 Resolved Problems ProblemNoted DateDiagnosed DateResolved DateMissed ftsyeq69/ Encounters DateTypeDepartmentCare BhqaRepmbkfmtth92/22/2025 2:50 PM EDTRoutine NOMS Heri SANTO [address] [place] [address] Britt Foy, DO Third trimester ([facility]); 34 weeks gestation of ([facility]); Insulin controlled gestational diabetes mellitus (GDM) during , antepartum ([facility]); Gestational diabetes mellitus (GDM), antepartum, gestational diabetes method of control unspecified([facility])05/14/2025amboo flowsheet [facility] [address] [place] [address] Britt Foy, DO 05/02/2025bstract [facility] [address] [place] [phone] Britt Foy, DO 04/30/2025 3:00 PM EDTRoutine [facility] [address] [place] [phone] Tiffany Li, ASHWIN Third trimester ([facility]); 32 weeks gestation of ([facility])04/30/2025linisync Result Encounter NOMS External Department Unsolicited Britt Foy, DO 04/30/2025amboo flowsheet [facility] [address] [place] [phone] Tiffany Li NP 04/27/20253427Monipm50/23/2025bstract [facility] [address] [place] [phone] Britt Foy, DO 04/14/2025 3:20 PM EDTRoutine [facility] [address] [place] [phone] Regina Cummins PA Third trimester ([facility]); 30 weeks gestation of ([facility])04/14/2025amboo flowsheet [facility] [address] [place] [phone] Regina Cummins PA 04/14/20258790Scbdbm37/15/2025Telephone [facility] [address] [place] [phone] Chaz ElizabethDAFNE 04/05/2025linisync Result Encounter NOMS External Department Unsolicited Regina Cummins PA 04/05/2025linisync Result Encounter NOMS External Department Unsolicited Regina Cummins PA 04/03/2025 3:30 PM EDTRoutine [facility] [address] [facility] [place] [address] Regina Cummins PA 28 weeks gestation of ([facility]); Third trimester ([facility]); Dizziness; Gestational diabetes mellitus (GDM), antepartum, gestational diabetes method of control unspecified([facility]); History of miscarriage; Anemia, unspecified type; UTI uquciscy41/11/2025amboo flowsheet [facility] [address] [facility] [place] [address] Regina Cummins PA 04/02/2025Telephone [facility] [address] [place] [phone] Yasemin SuyapaYOVANA 04/01/20250215Twlstq81/21/2025bstract [facility] [address] [facility] [place] [phone] Britt Foy, 03/12/2025 3:50 PM EDTRoutine [facility] [address] [facility] [place] [address] Britt Foy, 25 weeks gestation of ([facility]); Second trimester ([facility]); Gastroesophageal reflux disease without caekhvhlxpb21/20/2025amboo flowsheet [facility] [address] [facility] [place] [phone] Britt Foy, 03/03/2025bstract [facility] [address] [facility] [place] [address] Britt Foy, DO 02/28/2025bstract [facility] [address] [place] [address] Britt Foy DO 02/26/2025 3:30 PM EDTRoutine N[facility] Heri JOHNSONG[facility] [address] [facility] [place] [address] Britt Foy, 23 weeks gestation of ([facility]); Elevated blood sugar level; Gastroesophageal reflux disease without duusbozbqwo49/06/2025amboo flowsheet [facility] [address] [place] [address] Britt Foy, 02/19/20253013Oqpnoj86/22/2025 2:10 PM EDTRoutine [facility] Heri SANTO [address] [facility] [place] [address] Britt Foy, Second trimester ([facility]); 20 weeks gestation of ([facility])02/11/2025 1:00 PM EDTAncillary Procedure [facility] Heri SANTO [address] [place] [address] [place] [phone] Screening, , for anatomic survey ([facility])from Last 3 Months Family History RelationNameStatusCommentsDaughterAliveFatherAliveMotherAliveSisterAlive Social History Tobacco UseTypesPacks/DayYears UsedDateSmoking Tobacco: NeverSmokeless Tobacco: Never Tobacco Cessation:Counseling Given: Not Answered Alcohol UseStandard Drinks/WeekCommentsNever0 (1 standard drink = 0.6 oz pure alcohol)Estimated Date of EjicqgsxAbtomljaEuz26/01/2025ased on last menstrual period of 09/16/2024Sex and Gender InformationValueDate RecordedSex Assigned at BirthNot on fileLegal FhbTbykem76/15/2023 11:47 PM EDTGender IdentityNot on fileSexual OrientationNot on file Last Filed Vital Signs Vital SignReadingTime TakenCommentsBlood Qljzdyax439/7010 3:05 PM EDT Pulse--Temperature--Respiratory Rate--Oxygen Saturation--Inhaled Oxygen Concentration--Jexlvp254 kg (232 lb 1.9 oz)05/14/2025 3:05 PM EIWBzssdc502.6 cm (5' 6 )01/30/2023 12:12 PM EDTBody Mass Index37.47001/30/2023 12:12 PM EDT Plan of Treatment DateTypeDepartmentCare Team (Latest Contact Info)Shbxiwitfdi95/05/2025 2:00 PM ESTAncillary Procedure NOMRenzo SANTO [address] [place] [address] [place] [address] 05/28/2025 2:30 PM ESTRoutine NOMRenzo SANTO [address] [place] [address] [place] [address] Regina Cummins PA [address] [facility] [place] [address] 07/28/2025 4:00 PM ESTOffice Visit DIANE SANTO [address] [place] [address] [place] [address] Britt Foy DO [address] [facility] [place] [address] Health MaintenanceDue DateLast DoneCommentsInfluenza Vaccine (#1)03/24/2025 Goals GoalPatient Goal TypeAssociated ProblemsRecent ProgressPatient-Stated?Author Reminders Care PlanOB RemindersNoOpen Scheduling, Background Procedures Procedure NamePriorityDate/TimeAssociated DiagnosisCommentsPOCT URINALYSIS OTNSQAXCOjpvcxi32/22/2025 3:13 PM EDT 34 weeks gestation of ([facility] US OB BPP W NON-EUGXIQ9604/30/2025 10:59 PM EDT POCT URINALYSIS NBKUZCTWRoyldai38/08/2025 3:19 PM EDT 32 weeks gestation of ([facility]) POCT URINALYSIS CWODCKYOXjtxarw36/22/2025 3:54 PM EDT Third trimester ([facility]) US OB LSWCYC3104/05/2025 12:08 PM EDT ALL CBC WITH AUTO BINAPrbmpga75/13/2025 10:33 AM EDT URINARY TRACT INFECTION (HTRX)Zoyfcoa2404/03/2025 3:53 PM EDT POCT URINALYSIS DBOGJFWVEhfhkoa64/11/2025 3:51 PM EDT 28 weeks gestation of ([facility]) Third trimester ([facility]) POCT URINALYSIS KBBWGMMZBftctng45/20/2025 4:14 PM EDT 25 weeks gestation of ([facility]) Second trimester ([facility]) POCT URINALYSIS STASJFLXHgiuuhe97/06/2025 4:03 PM EDT 23 weeks gestation of ([facility]) Elevated blood sugar level POCT URINALYSIS EIPRWPUKJpmksfn55/22/2025 2:13 PM EDT Second trimester ([facility]) 20 weeks gestation of ([facility]) US OB 14+ WEEKS ANATOMY ZWCCCmvnwvd96/22/2025 1:59 PM EDT Screening, , for anatomic survey ([facility]) from Last 3 Months Results * POCT urinalysis dipstick manually resulted (05/14/2025 3:13 PM EDT) Only the most recent of7 resultswithin the time period is included. ComponentValueRef RangeTest MethodAnalysis TimePerformed AtPathologist Signature Color, UAYellowClarity, UAClearGlucose, UANegativeNegative - 2000(110) ++++ mg/dLBilirubin, UANegativeNegative - 4(70) +++ mg/dLKetones, UANegativeNegative - 160(16) ++++ mg/dLSpec Grav, UA1.0101 - 1.03Blood, UANegativeNegative - 50 Yunior/mcLpH, UA6.55 - 9Protein, UANegativeNegative - 2000(20) ++++ mg/dL Urobilinogen, UA2.00.2 - 12 mg/dLLeukocytes, UANegativeNegative - 500+++ Trip/mcL Nitrite, UANegativeNegative - PositiveSpecimen (Source)Anatomical Location / LateralityCollection Method / VolumeCollection TimeReceived NnwbOrbkm45/22/2025 3:13 PM EDT Narrative Authorizing ProviderResult TypeResult StatusCorey Law DOPOINT OF CARE TEST ENTER/EDIT ORDERABLESFinal Result * US OB BPP W NON-STRESS (04/30/2025 10:59 PM EDT)Anatomical Region LateralityModalityOtherSpecimen (Source)Anatomical Location / Laterality Collection Method / VolumeCollection TimeReceived Time04/30/2025 10:59 PM EDT Narrative 04/30/2025 11:[address] [facility] ?[address] ? [place] [address] ? Ultrasound Report ? Signed ? Patient: VINNY HERRERA ?MR#: [id number] ?? : 2000 ?Acct:[id number] ?? Age/Sex: 24 / F ?ADM Date: 04/30/25 ?? Loc: US ? Attending Dr: Britt Foy D.O. ? Ordering Physician: Britt Foy D.O. ?? Date of Service: 04/30/25 ?? Procedure(s): US OB BPP w non-stress ?? Accession Number(s): [id number] ? cc: Britt Foy D.O.; Ynes Mistry NP ? [facility] ? [address] ? [place] [address] ? Patient Name: ?? VINNY HERRERA ? MRN: [facility]:[id number] ? date: 2000 ?Sex: F ?? Assigned Patient Location: [facility]BC ?? Current Patient Location: ? Accession/Order Number: [id number] ?? Exam Date: 04/30/2025 ??15:57 ?Report Date: [...] Dictation Location: RADIO-PC-29 ? Electronically authenticated by: [id number] ??Y ?? Date: 04/30/2025 ??22:59 ? Dictated By: ?Chevy Moreland M.D. ? Signed By: ?04/30/252301 ? DD/ 2259 ? TD/TT: ? [employer] Operator Helper: Procedure Note Radiology, Radiologist, - 04/30/2025 [place] [address] Ultrasound Report Signed Patient: VINNY HERRERA CMR#: [id number] : 2000Acct:[id number] Age/Sex: 24 / FADM Date: 04/30/25 Loc: US Attending Dr: Britt Foy D.O. Ordering Physician: Britt Foy D.O. Date of Service: 04/30/25 Procedure(s): US OB BPP w non-stress Accession Number(s): [id number] cc: Britt Foy D.O.; Ynes Mistry SERVICE COORDINATOR The [place] [id number] Patient Name: VINNY HERRERA MRN: [id number] date: 2000 Sex: F Assigned Patient Location: [facility] Current Patient Location: Accession/Order Number: [id number] Exam Date: 04/30/2025 15:57 Report Date: 04/30/2025 22:59 At the request of: BRITT FOY DO Procedure: US OB BPP w non-stress Ultrasound biophysical profile INDICATION: Gestational diabetes COMPARISON: 04/05/2025 FINDINGS/IMPRESSION:: Fetus cephalic position. 8/8 score biophysical profile. heart rate 145 beats per minutes. JAMAL 12.7 cm. Impression dictated by: Chevy Moreland M.D. 04/30/2025 10:59 PM Dictation Location: [facility]-29 Electronically authenticated by: [id number] Y Date: 2:59 Dictated By: Chevy Moreland M.D. Signed By:04/30/252301 DD/ 58 TD/TT: [employer] Operator Helper: Authorizing ProviderResult TypeResult StatusCorey Law DOCLINISYNC IMAGINGFinal Result * US OB GROWTH (04/05/2025 12:08 PM EDT)Anatomical RegionLateralityModalityOther Specimen (Source)Anatomical Location / LateralityCollection Method / Volume Collection TimeReceived Time04/05/2025 12:08 PM EDT Narrative 04/05/2025 12:[address] [facility] ?[address] ? [place] [address] ? Ultrasound Report ? Signed ? Patient: ARVINCECELIAVINNY C ?MR#: [id number] ?? : 2000 ?Acct:[id number] ?? Age/Sex: 24 / F ?ADM Date: 04/05/25 ?? Loc: US ? Attending Dr: Regina Cummins ? Ordering Physician: Regina Cummins ?? Date of Service: 04/05/25 ?? Procedure(s): US OB growth ?? Accession Number(s): [id number] ? cc: Regina Cummins; Physician,Non-Staff M.D. ? [facility] ? [address] ? [place] [address] ? Patient Name: ?? VINNY HERRERA ? MRN: [facility]:[id number] ? date: 2000 ?Sex: F ?? Assigned Patient Location: US ?? Current Patient Location: LAB ?? Accession/Order Number: [id number] ?? Exam Date: 04/05/2025 ??10:00 ?Report Date: 04/05/2025 ??12:08 ? At the request of: ?? REGINA ??MARIA G ? Procedure: ??US OB growth ? Limited obstetrical ultrasound ? HISTORY: Gestational diabetes. ??Assessment for growth. ? Fetus in breech presentation with longitudinal lie. ??Placenta anterior ?? location with normal appearance. ?? heart rate 1 36 bpm. ?? somatic ?? motion identified. ??The gestational age by ultrasound is 29 weeks 2 days. ? Estimated delivery 06/19/2025. ??Estimated weight 1335 g with weight ?? percentile 51.2%. ? US/US OB growth ?? IMPRESSION: Single live intrauterine gestation 29 weeks 2 days. ? Impression dictated by: Daryn Peraza M.D. ??04/05/2025 12:08 PM ? Dictation Location: RADIO-PC-20 ? Electronically authenticated by: [id number] ??Y ?? Date: 04/05/2025 ??12:08 ? Dictated By: ?Daryn Peraza D.O. ? Signed By: ?04/05/25 1211 ? DD/ 1208 ? TD/TT: ? [employer] Operator Helper: Procedure Note Radiology, Radiologist, - 04/05/2025 The [place] [id number] Ultrasound Report Signed Patient: VINNY HERRERA CMR#: [id number] : 2000Acct:[id number] Age/Sex: 24 / FADM Date: 04/05/25 Loc: US Attending Dr: Regina Cummins Ordering Physician: Regina Cummins Date of Service: 04/05/25 Procedure(s): US OB growth Accession Number(s): [id number] cc: Regina Cummins; Physician,Non-Staff M.D. The [address] [address] Patient Name: VINNY HERRERA MRN: [id number] date: 2000 Sex: F Assigned Patient Location: US Current Patient Location: LAB Accession/Order Number: [id number] Exam Date: 04/05/2025 10:00 Report Date: 04/05/2025 [...] Peraza M.D. 04/05/2025 12:08 PM Dictation Location: [place] [address] Electronically authenticated by: [id number] Y Date: 2:08 Dictated By: Daryn Peraza D.O. Signed By:04/05/25 1211 DD/ 1208 TD/TT: [employer] Operator Helper: Authorizing ProviderResult TypeResult StatusAmy [facility] IMAGINGFinal Result * (ABNORMAL) ALL CBC WITH AUTO DIFF (04/05/2025 10:33 AM EDT)ComponentValueRef RangeTest MethodAnalysis TimePerformed AtPathologist SignatureTBH WBC11.04.0 - 11.0 10 3/uLTBHTBH RBC3.47(L)4.20 - 5.40 10 6/uLTBHTBH HGB10.3(L)12.0 - 16.0 g/dLTBHTBH HCT30.7(L)36.0 - 48.0 %TBHTBH MCV88.581.0 - 99.0 fLTBHTBH MCH29.7 26.7 - 34.0 pgTBHTBH MCHC33.629.9 - 35.2 g/dLTBHTBH RDW12.811.0 - 15.0 %TBHTBH UFS002767 - 450 10 3/uLTBHTBH MPV8.7(L)9.5 - 13.5 fLTBHNEUTROPHILS PERCENT AUTO74.743.0 - 75.0 %TBHLYMPHOCYTES PERCENT AUTO17.1(L)20.5 - 60.0 %TBH MONOCYTES PERCENT AUTO6.51.7 - 12.0 %TBHTBH EO %1.10.9 - 7.0 %TBHBASOPHILS PERCENT AUTO0.20.2 - 2.0 %TBHIMMATURE GRANULOCYTES PCT AUTO0.40.0 - 0.5 %TBH NEUTROPHILS ABSOLUTE AUTO8.2(H)1.4 - 6.5 10 3/uLTBHLYMPHOCYTES ABSOLUTE AUTO 1.91.2 - 3.8 10 3/uLTBHMONOCYTES ABSOLUTE AUTO0.70.3 - 0.8 10 3/uLTBHTBH EO # 0.10.0 - 0.7 10 3/uLTBHBASOPHILS ABSOLUTE AUTO0.00.0 - 0.1 10 3/uLTBHIMMATURE GRANULOCYTES ABS AUTO0.04(H)0.00 - 0.03 10 3/uLTBHSpecimen (Source)Anatomical Location / LateralityCollection Method / VolumeCollection TimeReceived Time 04/05/2025 10:33 AM EDT04/05/2025 10:34 AM EDT Narrative CLINISYNC - 04/05/2025 10:47 AM EDT Authorizing ProviderResult TypeResult StatusAmy Maria G PACLINISYNCFinal Result Performing OrganizationAddressCity/State/ZIP CodePhone Number [facility] * URINARY TRACT INFECTION (HTRX) (04/03/2025 3:53 PM EDT)ComponentValueRef Range Test MethodAnalysis TimePerformed AtPathologist SignatureACINETOBACTER DWUOYXWO097.961 - 24.689 ppm04/04/2025 7:51 AM EDTHealthTrackRx at [facility] ACINETOBACTER BAUMANIINot Omdbquhg43.961 - 24.689 ppm04/04/2025 7:51 AM EDT [facility] LabPortCITROBACTER WLCNVELV079.000 - 32.015 ppm04/04/2025 7:51 AM EDTHealthTrackRx at LabPortCITROBACTER FREUNDIINot Uvfvwwci69.000 - 32.015 ppm04/04/2025 7:51 AM EDTHealthTrackRx at LabPortENTEROBACTER AEROGENES, FPUPREU303.000 - 32.290 ppm04/04/2025 7:51 AM EDTHealthTrackRx at LabPortENTEROBACTER AEROGENES, CLOACAENot Lykwuyir60.000 - 32.290 ppm 04/04/2025 7:51 AM EDTHealthTrackRx at LabPortENTEROCOCCUS FAECALIS, FAECIUM0 26.000 - 33.043 ppm04/04/2025 7:51 AM EDTHealthTrackRx at LabPortENTEROCOCCUS FAECALIS, FAECIUMNot Lkisbcaz74.000 - 33.043 ppm04/04/2025 7:51 AM EDT [facility] at LabPortESCHERICHIA TQDQ685.000 - 28.500 ppm04/04/2025 7:51 AM EDTHealthTrackRx at LabPortESCHERICHIA COLINot Xbqrqvss56.000 - 28.500 ppm 04/04/2025 7:51 AM EDTHealthTrackRx at LabPortKLEBSIELLA PNEUMONIAE, OXYTOCA0 23.000 - 31.865 ppm04/04/2025 7:51 AM EDTHealthTrackRx at LabPortKLEBSIELLA PNEUMONIAE, OXYTOCANot Wbsxzcqc40.000 - 31.865 ppm04/04/2025 7:51 AM EDT [facility] at LabPortMORGANELLA MORFGGST800.961 - 24.689 ppm04/04/2025 7:51 AM EDTHealthTrackRx at LabPortMORGANELLA MORGANIINot Pjgtgrxd73.961 - 24.689 ppm04/04/2025 7:51 AM EDTHealthTrackRx at LabPortPROTEUS MIRABILIS, VULGARIS0 23.000 - 28.500 ppm04/04/2025 7:51 AM EDTHealthTrackRx at LabPortPROTEUS MIRABILIS, VULGARISNot Ixbwjlgi87.000 - 28.500 ppm04/04/2025 7:51 AM EDT [facility] at LabPortPSEUDOMONAS UUDHPBVTFK130.000 - 31.801 ppm04/04/2025 7:51 AM EDTHealthTrackRx at LabPortPSEUDOMONAS AERUGINOSANot Ctmzhego43.000 - 31.801 ppm04/04/2025 7:51 AM EDTHealthTrackRx at LabPortSTAPHYLOCOCCUS AUREUS0 26.000 - 31.595 ppm04/04/2025 7:51 AM EDTHealthTrackRx at [facility] STAPHYLOCOCCUS AUREUSNot Fxxakral97.000 - 31.595 ppm04/04/2025 7:51 AM EDT [facility] at LabPortSTREPTOCOCCUS AGALACTIAE (GROUP B STREP)026.000 - 32.435 ppm04/04/2025 7:51 AM EDTHealthTrackRx at LabPortSTREPTOCOCCUS AGALACTIAE (GROUP B STREP)Not Ahmjwuqd99.000 - 32.435 ppm04/04/2025 7:51 AM EDTHealthTrackRx at LabPortCANDIDA ALBICANS, PARAPSILOSIS, NVIXJRUAKT832.000 - 30.347 ppm04/04/2025 7:51 AM EDTHealthTrackRx at LabPortCANDIDA ALBICANS, PARAPSILOSIS, TROPICALISNot Gafzpqaa55.000 - 30.347 ppm04/04/2025 7:51 AM EDT [facility] LabPortCANDIDA UQKJXLPP926.000 - 31.618 ppm04/04/2025 7:51 AM EDTHealthTrackRx at LabPortCANDIDA GLABRATANot Blxcfivz08.000 - 31.618 ppm 04/04/2025 7:51 AM EDTHealthTrackRx at LabPortCANDIDA ISWAXA675.000 - 30.873 ppm04/04/2025 7:51 AM EDTHealthTrackRx at LabPortCANDIDA KRUSEINot Detected 23.000 - 30.873 ppm04/04/2025 7:51 AM EDTHealthTrackRx at LabPortSERRATIA JXJCGYLYDM006.000 - 31.581 ppm04/04/2025 7:51 AM EDTHealth[facility] at [facility] SERRATIA MARCESCENSNot Pvbivrez14.000 - 31.581 ppm04/04/2025 7:51 AM EDT [facility] at LabPortSTREPTOCOCCUS PYOGENES (GROUP A STREP)019.961 - 24.689 ppm04/04/2025 7:51 AM EDTHealthTrackRx at LabPortSTREPTOCOCCUS PYOGENES (GROUP A STREP)Not Ftelscpn51.961 - 24.689 ppm04/04/2025 7:51 AM EDTHealthTrackRx at LabPortSTAPHYLOCOCCUS EPIDERMIDIS, HAEMOLYTICUS, LUGDUNENSIS, SAPROPHYTICUS (IIIBO372.961 - 24.689 ppm04/04/2025 7:51 AM EDTHealth[facility] at [facility] STAPHYLOCOCCUS EPIDERMIDIS, HAEMOLYTICUS, LUGDUNENSIS, SAPROPHYTICUS (URINANot Awjqvdae74.961 - 24.689 ppm04/04/2025 7:51 AM EDTHealth[facility] at [facility] STAPHYLOCOCCUS EPIDERMIDIS, HAEMOLYTICUS, LUGDUNENSIS, SAPROPHYTICUS (URINA0 19.961 - 24.689 ppm04/04/2025 7:51 AM EDTHealthTrackRx at [facility] STAPHYLOCOCCUS EPIDERMIDIS, HAEMOLYTICUS, LUGDUNENSIS, SAPROPHYTICUS (URINANot Sjtancmz06.961 - 24.689 ppm04/04/2025 7:51 AM EDTHealthTrackRx at [facility] Specimen (Source)Anatomical Location / LateralityCollection Method / Volume Collection TimeReceived FdxvJzzdo63/11/2025 3:53 PM EDT04/04/2025 1:35 AM EDT Narrative Authorizing ProviderResult TypeResult StatusAmy Maria G PALAB BLOOD ORDERABLES Final ResultPerforming OrganizationAddressCity/State/ZIP CodePhone Number [facility] [address] [facility] [address] [place] [address] * OB 14+ weeks anatomy scan (02/11/2025 1:59 PM EDT)Anatomical Region LateralityModalityBodyUltrasoundSpecimen (Source)Anatomical Location / LateralityCollection Method / VolumeCollection TimeReceived Time02/18/2025 11:04 AM EDT Impressions 02/18/2025 11:27 AM EDT Single, live intrauterine , current sonographic age of 21 weeks and 0 days, with an estimated date of delivery of June 24, 2025. TRANSCRIBED BY: ? ELECTRONICALLY SIGNED BY: Ron Reyes MD Narrative 02/18/2025 11:27 AM EDT FINDINGS: A single, live intrauterine is present with normal cardiac rate of 141 beats per minute. Normal activity and amniotic fluid volume. Morphology is grossly normal. The cervix is long and closed, 4.5 cm. ??The placenta is anterior fundal, inferior margin 7 cm from the closed internal cervical os. ??The current sonographic age is 21 weeks and 0 days, based on the following measurements: ?BPD ? 5.0 cm (21 weeks, 0 days) ?Head Circumference ?18.6 cm (20 weeks, 6 days) ?Abdominal Circumference ?15.8 cm (21 weeks, 0 days) ?Femur Length ? 3.4 cm (20 weeks, 6 days) ?Presentation ? Cephalic ?Placenta ? Anterior fundal ? These measurements result in an estimated date of delivery of June 24, 2025. ?? The current estimated weight is 385 grams (0 pounds, 14 ounces). ?? Procedure Note Ron Reyes MD - 02/18/2025 [...] BY: Ron Reyes MD Authorizing ProviderResult TypeResult StatusCorey Law MURPHY OB US PROCEDURES Final Result from Last 3 Months Additional Health Concerns Active ProblemsNoted DateDiagnosed DateOB Kbivgrzhi91/09/2025 Insurance * Guarantor: Joanne Herrera TypeRelation to PatientDate of BirthPhone Billing AddressPersonal/KnyexjQkuh81/ [address] [place] [id number]
--- OUTSIDE RECORDS SUMMARY | 2025-05-14 15:59 | XMS_ITS | Clinical Summary ---
Author Organization [facility] Address [address] [address] Care Team Providers Care Central Sterile Technician Name Role Phone Ynes Mistry PHYSICIAN OFFICE SPECIALIST Primary Care Provider Allergies No known active allergies Medications MedicationSigDispense QuantityRefillsLast FilledStart DateEnd DateStatus Pro Fe 180 mg iron capsule Take by mouth in the morning.01/27/2023ctive sertraline (Zoloft) 50 mg tablet 50 mg in the morning.03/06/2023ctive norethindrone (Micronor) 0.35 mg tablet Take 1 tablet by mouth in the morning.03/10/2023ctive Active Problems ProblemNoted DateDiagnosed DateIron deficiency anemia due to chronic blood loss 03/30/2023 Assessment & Plan (03/30/2023 1:04 PM EDT): -developed anemia s/p -hgb 10.8 per recent labs Ajajjwldirfc22/28/2023 Assessment & Plan (03/30/2023 1:01 PM EDT): - 30-day event monitor - we will hold off on starting medication until follow-up Abnormal glucose levelHeartburn Vccajisctxt47yspareunia in aezlpf54Frequent UTInxiety Assessment & Plan (03/30/2023 1:01 PM EDT): - takes sertraline 50 mg daily Seasonal allergic mpzlydkr37Insomnia due to other mental xakwsnes55Other zqotqkr41 Assessment & Plan (03/30/2023 1:02 PM EDT): - could be related to being , anemia -monitor and echo to rule out cardiac concern Encounters DateTypeDepartmentCare CkouTahcnmerdat41/05/2025Telephone [facility] [address] [place] [address] Cailin Ryan MA from Last 3 Months Family History Medical HistoryRelationNameCommentsHyperlipidemiaFatherSupraventricular tachycardiaFatherAnemiaMotherDiabetesSisterRelationNameStatusCommentsFather MotherSister Social History Tobacco UseTypesPacks/DayYears UsedDateSmoking Tobacco: NeverSmokeless Tobacco: Never Tobacco Cessation:Counseling Given: Not Answered Alcohol UseStandard Drinks/WeekCommentsNot Currently0 (1 standard drink = 0.6 oz pure alcohol)NM Safety & EnvironmentAnswerDate RecordedFear of Current or Ex-PartnerNot on file09/15/2023Emotionally AbusedNot on file09/15/2023hysically AbusedNot on file09/15/2023Sexually AbusedNot on file09/15/2023hysically or Sexually AbusedNot on file09/15/2023CommentsUnknownSex and Gender InformationValueDate RecordedSex Assigned at BirthNot on fileLegal SexFemale 03/17/2023 11:34 AM EDTGender IdentityNot on fileSexual OrientationNot on file Last Filed Vital Signs Vital SignReadingTime TakenCommentsBlood Orsocbpc726/7607/11/2023 4:27 PM EST Jkysx133007/11/2023 4:27 PM ESTTemperature--Respiratory Rate--Oxygen Wmhtjsmich96% 07/11/2023 4:27 PM ESTInhaled Oxygen Concentration--Vdqggl31.7 kg (211 lb) 07/11/2023 4:27 PM OLVQmegnt091.6 cm (5' 6 )07/11/2023 4:27 PM ESTBody Mass Index34.0607/11/2023 4:27 PM EST Plan of Treatment Health MaintenanceDue DateLast DoneCommentsDepression Rkmqdbwor83/17/2011dult Fsewnup37/COVID-19 Vaccine (3 - 2024- season)2025 12/29/2020, 12/07/2020Influenza Vaccine (#1)2025Pap Smear04/18/2025 04/18/2022Zoster Vaccines (1 of 2)9002/09/2011, 12/22/1999HIB Vaccines Qyuulzbhj65/21/2000, 03/12/1999, 01/18/1999, Additional history existsIPV MxfeaervEvthyzkbd69/29/2004, 03/13/2000, 01/18/1999, Additional history exists Varicella DnbctxpzUttrsukfv77/20/2011, 12/22/1999Meningococcal VaccineCompleted 03/11/2016, 2014, 01/12/2011HPV EbukfqdfUgizrtfjj97/28/2018, 05/01/2017, 02/24/2017Meningococcal B VaccineAged OutNo longer eligible based on patient's age to complete this topicPneumococcal Vaccine: Pediatrics (0 to 5 Years) and At-Risk Patients (6 to 64 Years)Aged OutNo longer eligible based on patient's age to complete this topicRotavirus VaccinesAged OutNo longer eligible based on patient's age to complete this topic Insurance Care Teams Team MemberRelationshipSpecialtyStart DateEnd Date Ynes Mistry, PHYSICIAN OFFICE SPECIALIST [address] [place] [address] [facility] [address] [place] [address] [facility]03/20/23
--- OUTSIDE RECORDS SUMMARY | 2025-05-14 15:59 | XMS_ITS | Clinical Summary ---
Author Organization [facility] Address [address], [address] [place] [address] Care Team Providers Care Medical Records Analyst Name Role Phone Ynes Mistry REGISTERED NURSE CARDIAC TELEMETRY - ELECTRIC ORGAN CHECKER Primary Care Provide r Allergies No known active allergies Medications MedicationSigDispense QuantityRefillsLast FilledStart DateEnd DateStatus cetirizine (ZYRTEC) 10 MG tablet Take 1 tablet by mouth daily 90 tablet 1Active metFORMIN (GLUCOPHAGE-XR) 500 MG extended release tablet Indications:BMI 37.0-37.9, adult,Class 2 obesity with body mass index (BMI) of 37.0 to 37.9 in adult, unspecified obesity type, unspecified whether serious comorbidity presentTAKE 2 TABLETS BY MOUTH IN THE MORNING AND AT BEDTIME 120 tablet 5Active Progesterone [address] 200 mg vaginally /26/2025Active sertraline (ZOLOFT) 25 MG tablet Take 1 tablet by mouth daily 30 tablet 5Active Active Problems ProblemNoted DateDiagnosed DateGastroesophageal reflux itwqixp0911/12/2024Other hyperlipidemia [E78.49]06/04/20246446Dhhlasm88/12/2024Hepatic wowsdvwed24/14/2024 Elevated liver eikvgkf5703/01/2024Mixed zkbgykpsdbxckv27/30/2024Iron deficiency ecclwe6510/25/2023Gestational diabetes mellitus (GDM) affecting second 07/24/20223893Yzvsvor79/07/2020Seasonal allergic lcvhseqn90/07/2020Other fatigue 05/02/2020 Resolved Problems ProblemNoted DateDiagnosed DateResolved DateSore uvsjef47503/5Acne /Irregular /Frequent UTI11/30/2020 02/20/2024yspareunia in kjyaqj52/Insomnia due to other mental yxfkjbwx84 Encounters DateTypeDepartmentCare XjzoAwcobhtnvkm59/21/2025Orders Only [facility] [address] [place] [address] [address] [place], [place] [id number] ProviderYuval MD 05/01/2025Orders Only [facility] [address] [place] [address] Dr [address] [place] [address] Provider, MD Yuval from Last 3 Months Immunizations ImmunizationAdministration DatesNext DueCOVID-19, Inactive, PFIZER PURPLE top, DILUTE for use, (age 12 y+)12/29/2020,5999DLzL15/29/2004,03/13/2000, 03/12/1999,01/18/1999,1998DTaP, INFANRIX, (age 6w-6y), IM, 0.5mL11/20/2003 ,03/13/2000,03/12/1999,01/18/1999,1998HPV Quadrivalent (Gardasil) 09/20/2017,05/01/2017,02/24/2017Hep A, HAVRIX, VAQTA, (age 12m-18y), IM, 0.5mL 08/19/2011,02/09/2011Hep B, ENGERIX-B, RECOMBIVAX-HB, (age - 19y), IM, 0.5mL06/09/1999,1998,1998Hepatitis A Ped/Adol (Vaqta)08/19/2011, 02/09/2011Hib PRP-T, ACTHIB (age 2m-5y, Adlt Risk), HIBERIX (age 6w-4y, Adlt Risk), IM, 0.5mL03/13/2000,03/12/1999,01/18/1999,1998MMR, PRIORIX, M-M-R II, (age 12m+), SC, 0.5mL11/20/2003,12/22/1999Meningococcal ACWY Vaccine 2014Meningococcal ACWY, MENACTRA (MenACWY-D), (age 9m-55y), IM, 0.5mL 03/11/2016,01/12/2011Poliovirus, IPOL, (age 6w+), SC/IM, 0.5mL11/20/2003, 03/13/2000,01/18/1999,1998TDaP, ADACEL (age 10y-64y), BOOSTRIX (age 10y+), IM, 0.5mL06/19/2011Varicella, VARIVAX, (age 12m+), SC, 0.5mL02/09/2011, 12/22/1999 Family History Medical HistoryRelationNameCommentsHigh CholesterolFatherDadBreast Cancer Maternal GrandmotherBlairObesityMotherMomOtherOtherNo family h/o DVTBreast CancerPaternal GrandmotherRankerDiabetesSisterEmilyRelationNameStatusComments FatherDadAliveMaternal GrandfatherDeceasedMaternal GrandmotherBlairAliveMother MomAliveOtherOtherPaternal GrandfatherDeceasedPaternal GrandmotherRankerAlive SisterEmilyAlive Social History Tobacco UseTypesPacks/DayYears UsedDateSmoking Tobacco: NeverSmokeless Tobacco: Never Tobacco Cessation:Counseling Given: Not Answered Alcohol UseStandard Drinks/WeekCommentsNot Currently0 (1 standard drink = 0.6 oz pure alcohol)socialAHC UtilitiesAnswerDate RecordedIn the past 12 months has the [employer], [employer], [employer], or water [email or web address] threatened to shut off services in your home?No10/07/2024Overall Financial Resource Strain (CARDIA)AnswerDate Recorded How hard is it for you to pay for the very basics like food, housing, medical care, and heating?Not hard at all07/13/2023HQ-2AnswerDate RecordedPHQ-9 Total Gzrcq668Hunger Vital SignAnswerDate RecordedWithin the past 12 months, you worried that your food would run out before you got the money to buymore. Never true10/07/2024Within the past 12 months, the food [...] steady place to sleep or slept in melcroftelter (including now)?No07/13/2023Housing Stability Vital SignAnswerDate RecordedIn the last 12 months, was there a time when you were not able to pay the mortgage or rent on time?No10/07/2024In the past 12 months, how many times have you moved where you were living? At any time in the past 12 months, were you homeless or living in a senior living (including now)?No10/07/2024Food InsecurityAnswerDate RecordedWithin the past 12 months, you worried that your food would run out before you got the money to buymore.Within the past 12 months, the food you bought just didn't last and you didn't have money to get more.CommentsNoSex and Gender InformationValueDate RecordedSex Assigned at SqwjgCouddg66/28/2024 8:24 PM EDTLegal WcpEvcwge63/10/2013 3:31 PM ESTGender JaoochvbAnffzp35/28/2024 8:24 PM EDTSexual OrientationNot on file Last Filed Vital Signs Vital SignReadingTime TakenCommentsBlood Xrjrsuyp463/7204 11:39 AM EDT Xkyhe4565 11:39 AM RRBNtoqaddxwss78.1 ??C (96.9 ??F)11/12/2024 11:39 AM EDTRespiratory Izgc689910/07/2024 1:43 PM EDTOxygen Ooiwaxkyge33%11/12/2024 11:39 AM EDTInhaled Oxygen Concentration--Ukztvy93.1 kg (203 lb)11/12/2024 11:39 AM TLWIscmfx410.1 cm (5' 5 )10/07/2024 1:43 PM EDTBody Mass Index33.78010/07/2024 1:43 PM EDT Plan of Treatment Health MaintenanceDue DateLast DoneCommentsDTaP/Tdap/Td vaccine (7 - Td or Tdap) /, 11/20/2003, 11/20/2003, Additional history existsFlu vaccine (#1)5COVID-19 Vaccine (2024- season)506/02/2021, 1Depression Gvhqiv84601/, 08/07/2024Pap smear07/15/2027 07/15/2024, 07/15/2023, 07/05/2023, Additional history existsHepatitis B vaccine Jhmhmmqnv11/17/1999, 1998, 1998Hib yeomixqYukvuoaev06/21/2000, 03/12/1999, 01/18/1999, Additional history existsPolio vaccineCompleted 11/20/2003, 03/13/2000, 01/18/1999, Additional history existsVaricella vaccine Juvczqpzn83/20/2011, 12/22/1999Hepatitis A hutcjwaUizqlerzi13/27/2012, 08/19/2011, 02/09/2011, Additional history existsMeningococcal (ACWY) vaccine Ylraswvzq63/19/2016, 2014, 01/12/2011HPV hvrvpycFnowpcjhy17/28/2018, 05/01/2017, 02/24/2017HIV cqmtqeAntrxeiyi78/12/2020Chlamydia/GC screen Spzoloxusodc35/29/2021, 03/03/2020, 02/21/2019, Additional history exists Hepatitis C wpxltiYbfserpcp02/27/2024Depression MonitoringDiscontinued 08/07/2024, 08/07/20246757GdioimJyhatbyntdas61/27/2025, 05/20/2024, 02/16/2024, Additional history existsMeningococcal B vaccineAged OutNo longer eligible based on patient's age to complete this topicPneumococcal 0-49 years VaccineAged Out No longer eligible based on patient's age to complete this topic Procedures Procedure NamePriorityDate/TimeAssociated DiagnosisCommentsCHG BIOPHYSICAL PROFILE NON-STRESS CYILTSWDjpavkq74/15/2025 3:54 PM EDTBIOPHYSICAL PROFILE W/MUATgyhdvy85/08/2025 11:39 AM EDTHM PAP CHBRLTgamcsx42/23/2024 LIPID WRUVPQgcjtmj88/28/2024 9:59 AM EDT Mixed hyperlipidemia HEPATITIS C YQZYJRMRArunthw10/27/2024 8:25 AM EDT Need for hepatitis C screening test Wellness examination C.TRACHOMATIS N.GONORRHOEAE DNA, XQBZEMxbfuut93/29/2021 1:57 PM EDT Frequent UTI HIV RQLKTTLczjwgu26/12/2020 3:27 PM EDT Encounter for screening for HIV from Last 3 Months or Most Recently Relevant to Health Maintenance Results * CHG BIOPHYSICAL PROFILE NON-STRESS TESTING (05/07/2025 3:54 PM EDT) Narrative Authorizing ProviderResult TypeResult StatusHistorical Provider MDPR IMAGING Final Result * BIOPHYSICAL PROFILE W/NST (04/30/2025 11:39 AM EDT) Narrative Authorizing ProviderResult TypeResult StatusHistorical Provider MDPR IMAGING Final Result * HM PAP SMEAR (07/15/2024)ComponentValueRef RangeTest MethodAnalysis Time Performed AtPathologist SignaturePAP Smear, ExternalnegSpecimen (Source) Anatomical Location / LateralityCollection Method / VolumeCollection Time Received Time07/15/2024 Narrative Authorizing ProviderResult TypeResult StatusHistorical Provider MDASHTABULA [facility] MAINTENANCEEdited Result - Final * Hepatitis C Antibody (10/18/2023 8:25 AM EDT)ComponentValueRef RangeTest MethodAnalysis TimePerformed AtPathologist SignatureHepatitis C AbNONREACTIVE TYXUABHRRYX25/27/2024 8:25 AM EDTMERCY LABORATORIESComment: ? The hepatitis C procedure used in our laboratory is a Chemiluminescent test specific for three recombinant HCV antigens. ??A negative anti-HCV result indicates that the antibodies to hepatitis C virus are not present at this time. Individuals with reactive anti-HCV should be considered infected and infectious until proven otherwise. ??Confirmation of all equivocal or reactive results is recommended by ordering HCV RNA by PCR. Specimen (Source)Anatomical Location / LateralityCollection Method / Volume Collection TimeReceived TimeBloodBLOOD SPECIMEN / Kccksov2410/18/2023 8:25 AM EDT 10/18/2023 8:26 AM EDT Narrative Authorizing ProviderResult TypeResult StatusYnes Mistry REGISTERED NURSE CARDIAC TELEMETRY - CNPIMMUNOLOGY ORDERABLESFinal ResultPerforming OrganizationAddressCity/State/ZIP CodePhone Number [facility] [address] [place] [address], [facility] [phone] [facility] [address] [place] [address], [facility] [phone] * C.trachomatis N.gonorrhoeae DNA, Urine (11/19/2020 1:57 PM EDT)ComponentValue Ref RangeTest MethodAnalysis TimePerformed AtPathologist SignatureSpecimen Description.URINE11/19/2020 1:57 PM EDTMERCY LABORATORIESC. trachomatis DNA ,EagqmHQAGRKLTVUWOWLDQ15/29/2021 1:57 PM EDTMERCY LABORATORIESComment: CHLAMYDIA TRACHOMATIS DNA not detected by nucleic acid amplification. ? This test is intended for medical purposes only and is not valid for the evaluation of suspected sexual abuse or for other forensic purposes. In certain contexts, culture may be required to meet applicable laws and regulations for diagnosis of C. trachomatis and N. gonorrhoeae infections. Per 2013 ??CDC recommendations, this test does not include confirmation of positive results by an alternative nucleic acid target. N. gonorrhoeae DNA, FppujQLYFDBMBIXQETNEX13/29/2021 1:57 PM EDTMERCY LABORATORIESComment: NEISSERIA GONORRHOEAE DNA not detected by nucleic acid amplification. ? This test is intended for medical purposes only and is not valid for the evaluation of suspected sexual abuse or for other forensic purposes. In certain contexts, culture may be required to meet applicable laws and regulations for diagnosis of C. trachomatis and N. gonorrhoeae infections. Per 2013 ??CDC recommendations, this test does not include confirmation of positive results by an alternative nucleic acid target. Specimen (Source)Anatomical Location / LateralityCollection Method / Volume Collection TimeReceived RuzsQoyir80/29/2021 1:57 PM EDT11/19/2020 1:57 PM EDT Narrative Authorizing ProviderResult TypeResult StatusBesilvestre Ricks APRN - ELECTRIC ORGAN CHECKER MICROBIOLOGY - GENERAL ORDERABLESFinal ResultPerforming OrganizationAddress City/State/ZIP CodePhone Number [facility] [address] [place] [address], [facility] [phone] [phone] * HIV Screen (05/04/2020 3:27 PM EDT)ComponentValueRef RangeTest MethodAnalysis TimePerformed AtPathologist SignatureHIV Ag/NyBWCZNXNWAFJHNFSDZSUKFP90/12/2020 3:27 PM EDTMERCY LABORATORIESComment: No laboratory evidence of HIV infection. ??If acute HIV infection is suspected, consider testing for HIV-1 RNA. Specimen (Source)Anatomical Location / LateralityCollection Method / Volume Collection TimeReceived TimeBLOOD SPECIMEN / Qappbmu2605/04/2020 3:27 PM EDT 05/04/2020 3:28 PM EDT Narrative Authorizing ProviderResult TypeResult StatusHannah M Mistry REGISTERED NURSE CARDIAC TELEMETRY - CNPIMMUNOLOGY ORDERABLESFinal ResultPerforming OrganizationAddressCity/State/ZIP CodePhone Number [facility] [address] [place] [address], [facility] [phone] [facility] [address] [place] [address], [facility] [phone] from Last 3 Months or Most Recently Relevant to Health Maintenance Insurance Care Teams Team MemberRelationshipSpecialtyStart DateEnd Date Ynes Mistry, JOSE J - ELECTRIC ORGAN CHECKER [address] [place] [address] [place] [address] PCP - GeneralFamily Nurse Practitioner08/02/22
--- OUTSIDE RECORDS SUMMARY | 2025-05-14 15:59 | XMS_ITS | Encounter Summary ---
Author Organization [facility] Address [address], [address] [place] [address] Care Team Providers Care Manager Of Finance Name Role Phone Ynes Mistry NOXIOUS WEEDS AND PEST INSPECTOR - HOSPITAL ATTENDANT Primary Care Provide r Encounter Details DateTypeDepartmentCare Team (Latest Contact Info)Igmlttpmzza58/09/2025Orders Only [facility] [address] [place] [address] [address] [place] [id number] Provider, MD Yuval Social History Tobacco UseTypesPacks/DayYears UsedDateSmoking Tobacco: NeverSmokeless Tobacco: NeverAlcohol UseStandard Drinks/WeekCommentsNot Currently0 (1 standard drink = 0.6 oz pure alcohol)[facility] UtilitiesAnswerDate RecordedIn the past 12 months has the electric, gas, oil, or water company threatened to shut off services in your home?No10/07/2024Overall Financial Resource Strain (CARDIA)AnswerDate RecordedHow hard is it for you to pay for the very basics like food, housing, medical care, and heating?Not hard at all07/13/2023HQ-2AnswerDate RecordedPHQ-9 Total Xnytd401Hunger Vital SignAnswerDate RecordedWithin the past 12 months, [...] steady place to sleep or slept in [place] (including now)?No07/13/2023Housing Stability Vital SignAnswerDate RecordedIn the last 12 months, was there a time when you were not able to pay the mortgage or rent on time?No10/07/2024In the past 12 months, how many times have you moved where you were living? At any time in the past 12 months, were you homeless or living in a alf (including now)?No10/07/2024Food InsecurityAnswerDate RecordedWithin the past 12 months, you worried that your food would run out before you got the money to buy more.Within the past 12 months, the food you bought just didn't last and you didn't have money to get more.CommentsNoSex and Gender InformationValueDate RecordedSex Assigned at UkpjrPfpkhz65/28/2024 8:24 PM EDTLegal KzuRobzeo62/10/2013 3:31 PM ESTGender JlcctjxaIuqvll35/28/2024 8:24 PM EDTSexual OrientationNot on filedocumented as of this encounter Plan of Treatment Not on file documented as of this encounter Procedures Procedure NamePriorityDate/TimeAssociated DiagnosisCommentsBIOPHYSICAL PROFILE W/NSJPojdszn20/08/2025 11:39 AM EDTdocumented in this encounter Results * BIOPHYSICAL PROFILE W/NST (04/30/2025 11:39 AM EDT) Narrative Authorizing ProviderResult TypeResult StatusHistorical Provider MDPR IMAGING Final Result documented in this encounter Visit Diagnoses Not on filedocumented in this encounter Care Teams Team MemberRelationshipSpecialtyStart DateEnd Date Ynes Mistry, NOXIOUS WEEDS AND PEST INSPECTOR - HOSPITAL ATTENDANT [address] [place] [address] [place] [phone] PCP - GeneralFamily Nurse Practitioner08/02/22documented as of this encounter
[2025-05-14 16:26] VITALS: BP 134/78; PULSE 88
== END 2025-05-14 17:30 | disposition home or self-care (01) ==
LOC: US 15:51 → FBC 15:59
PROVIDERS: PCP Nurse Practitioner Women's Health; Visit Provider Obstetrics & Gynecology
DX: O24.419 Gestational diabetes mellitus in pregnancy, unspecified control (principal); Z3A.34 34 weeks gestation of pregnancy
CPT/HCPCS: 76818

== ENCOUNTER 2025-05-17 08:11 | Outpatient (OUT) | payer OTHER, SELFPAY ==
--- OUTSIDE RECORDS SUMMARY | 2020-06-22 11:27 | XMS_ITS | Continuity of Care Document ---
Author Organization [facility] Address [address] [place] [address] Phone Care Team Providers Care Canal Superintendent Name Role Phone Valerie Ernandez Chen vailable [...] Diagnoses Date Provider Providers Copied on Encounter [employer], [address], [place], [id number], [place] tel:[phone] [facility] No Information Livier Padilla. [address], [place], [id number], [place]. tel:[phone] OFFICE/OUTPAT IENT VISIT, [facility], [address] [place] [address] [address], [place], [place], [id number], tel:[phone] [facility] COVID EXPOSURE AND SYMPTOMS (chief complaint) Body achesFatigue, unspecified typeExposure to COVID-19 virus [facility] Valerie. [address], [place], [id number], [place]. tel:[phone] Referring Provider: Valerie Maier APRNMUNA, [address] [place], [address] . tel:[phone] OFFICE/OUTPAT IENT VISIT, [facility], [address] [place] [address] [address], [place], [place], [id number], tel:[phone] [facility] UTI (chief complaint) Dysuria Titus Albarran. [address], [place], [id number], [place]. tel:[phone] Referring Provider: Avis Qureshi NP, [address] [place], [address] . tel:[phone] Family History Family Member Type Diagnosis Age At Onset No Information Payers Payer name Insurance type Covered democrat ID Bill diggs(s) Thad TODD [id number] Social History Type Description Quantity Date Captured Comments Sex Female Smoking Status No Information Chief Complaint And Reason For Visit No Information Reason For Referral Reason For Referral No Information Plan Of Treatment Date Type Action Status Future Order: Lab Order COVID 19 , RT-PCR ([id number]), Ordered on: Ordered History Of Present Illness Encounter Date Complaint History Of Prese nt Illness COVID EXPOSURE AND SYMPTOMS The symptoms began [...] employment and now she is having symptoms COVID EXPOSURE AND S YMPTOMS (comments) 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 PATIENT STATES THAT 2 PEOPLE IN HER STORE HAVE TESTED POSITIVE FOR COVID-19. PATIENT STATES THAT HER LAST EXPOSURE TO THEM WAS ON May. PATIENT STATES LAST NIGHT SHE DEVELOPED SOME FATIGUE. PATIENT STATES THAT HER EMPLOYER IS MAKING THEM ALL COME TO WORK EVEN THOUGH THEY BEEN EXPOSED TO COVID-19. UTI Onset: 1 Week. T he severity [...] FOR COUGH WELL IF YOU ARE A [facility] STUDENT LIVING ON CAMPUS PLEASE CALL YOUR [facility] COVID HOTLINE NUMBER IS [phone] RED FLAGS THAT WOULD WARRANT ER ASSESSMENT [...] COVID CASES: COVID TESTS ARE RUN AT [facility] AND ARE TYPICALLY DONE IN 24-48 HOURS. PLEASE SIGN UP FOR THE PATIENT PORTAL THOUGH [facility] YOUR RESULTS WILL SHOW UP THERE. IF YOU DO NOT GET AN EMAIL TO SET UP YOUR PATIENT PORTAL PLEASE CALL [phone] Monday RIDAY 8:00AM 4:30PM HOW TO DISCONTINUE [...] SOMEHOW GOT RESPIRATORY DROPLETS ON YOU [email or web address] (UPDATED OF 05.19.2020) CONTACT YOUR LOCAL HEALTH [...] SYMPTOMS THAT ARE SEVERE OR CONCERNING. COVID-19 HOTLINE:[id number]-[id number] ( ) HOW TO HELP STOP THE [...] SECONDS. RESOURCES FOR MORE INFORMATION: [email or web address] Related to Exposure to COVID-19 virus Increase fluids and rest.May continue over the counter urinary pain relief. Take antibiotic completely. Return to [facility] if not improving. Related to Dysuria Assessments Type Assessment Date No Information Patient Care Teams Name Effective Dates (start - stop) Status Members No Information
--- OUTSIDE RECORDS SUMMARY | 2025-05-14 14:50 | XMS_ITS | Encounter Summary ---
Author Organization [facility] Address [address] [place] [address] Care Team Providers Care Home Comfort Advisor Name Role Phone Unavailable Primary Care Provider Unavailabl e Reason for Visit * ReasonCommentsRoutine Visit Encounter Details DateTypeDepartmentCare Team (Latest Contact Info)Exeluqhbpqq28/22/2025 2:50 PM EDTRoutine [facility] [address] [facility] [place] [address] Mukul Foy DO [address] [facility] [address] [place], [place] [phone] Third trimester ([facility]); 34 weeks gestation of ([facility]); Insulin controlled gestational diabetes mellitus (GDM) during , antepartum ([facility]); Gestational diabetes mellitus (GDM), antepartum, gestational diabetes method of control unspecified([facility]) Social History Tobacco UseTypesPacks/DayYears UsedDateSmoking Tobacco: NeverSmokeless Tobacco: NeverAlcohol UseStandard Drinks/WeekCommentsNever0 (1 standard drink = 0.6 oz pure alcohol)Estimated Date of BltkqounPdandfeuCpe85/01/2025Based on last menstrual period of 09/16/2024Sex and Gender InformationValueDate Recorded Sex Assigned at BirthNot on fileLegal RzzGoftds20/15/2023 11:47 PM EDTGender IdentityNot on fileSexual OrientationNot on filedocumented as of this encounter Last Filed Vital Signs Vital SignReadingTime TakenCommentsBlood Lofbmyym115/7010 3:05 PM EDT Pulse--Temperature--Respiratory Rate--Oxygen Saturation--Inhaled Oxygen Concentration--Mjauwm257 kg (232 lb 1.9 oz)05/14/2025 3:05 PM [...] Frequent UTI 11/30/2020 23 weeks gestation of ([facility]) 02/26/2025 Elevated blood sugar level 02/26/2025 Resolved Ambulatory Problems Diagnosis Date Noted Missed period 01/13/2023 Past Medical History: Diagnosis Date GDM (gestational diabetes mellitus) ([facility]) HISTORY PAST MEDICAL HISTORY SOCIAL HISTORY Past Medical History: Diagnosis Date GDM (gestational diabetes mellitus) ([facility]) Social History Tobacco Use Smoking status: Never [...] nursing note reviewed. Exam conducted with a fan mail clerk present. Vitals: Estimated body mass index is 37.47 kg/m?? as calculated from the following: Height as of 01/30/23: 5' 6 . Weight as of this encounter: 232 lb 1.9 oz. BP: 110/70 Patient's last menstrual period was 09/16/2024. Assessment/Plan ICD-10-CM 1. Third trimester ([facility]) Z34.93 2. 34 weeks gestation of ([facility]) Z3A.34 POCT urinalysis dipstick manually resulted Return [...] Plan of Treatment DateTypeDepartmentCare Team (Latest Contact Info)Hdvjhtbhfyu81/05/2025 2:00 PM ESTAncillary Procedure [facility] [address] [place] [address] [place] [phone] 05/28/2025 2:30 PM ESTRoutine [facility] [address] [place] [address] [place] [phone] Regina Barton PA [address] [facility] [address] [place], [place] [phone] 07/28/2025 4:00 PM ESTOffice Visit NOMRenzo SANTO [address] [place] [address] [place] [address] Mukul Foy DO [address] [facility] [address] [place], [place] [phone] NameTypePriorityAssociated DiagnosesOrder ScheduleUS OB follow up transabdominal approachImagingRoutine Insulin controlled gestational diabetes mellitus (GDM) during , antepartum ([facility]) Expected: 05/14/2025, Expires: 09/14/2025documented as of this encounter Goals GoalPatient Goal TypeAssociated ProblemsRecent ProgressPatient-Stated?Author Reminders Care PlanOB RemindersNoOpen Scheduling, Backgrounddocumented as of this encounter Procedures Procedure NamePriorityDate/TimeAssociated DiagnosisCommentsPOCT URINALYSIS RIPPIKTZCcygfdh18/22/2025 3:13 PM EDT 34 weeks gestation of ([facility]) documented in this encounter Results * POCT [...] this encounter Visit Diagnoses Diagnosis Third trimester ([facility]) state, incidental 34 weeks gestation of ([facility]) Insulin controlled gestational diabetes mellitus (GDM) during , antepartum ([facility]) Gestational diabetes mellitus (GDM), antepartum, gestational diabetes method of control unspecified([facility]) documented in this encounter Additional Health Concerns Active ProblemsNoted DateDiagnosed DateOB Lgesbgbbw78/09/2025 documented as of this encounter
--- OUTSIDE RECORDS SUMMARY | 2025-05-17 08:14 | XMS_ITS | CCD ---
Author Organization [facility] CliniSymt Care Team Providers Care Financial Representative Name Role Phone Jannette Peña I Primary Care Provider [phone] Ynes Rodriguez Primary Care Provider Fede LUX Ynes ANDRES Primary Care Provide r LAW, MUKUL R Admitting Unavailable LAW, MUKUL R Primary Care Unavailable LAW, MUKUL R Admitting Unavailable LAW, MUKUL R Primary Care Unavailable LAW, MUKUL R Admitting Unavailable LAW, MUKUL R Primary Care Unavailable BERTO LIVE Admitting Unavailabl e LAW, MUKUL R Primary Care Unavailable Fede CABLE TELEVISION PROGRAM DIRECTOR - VENDING MACHINE HOST/HOSTESS, Ynes Conner Primary Care Provide r Unavailable Primary Care Provider Unavailabl e LAW ., DR DE LA TORRE Attending Unavailable MISC, DR YAÑEZ Primary Care Unavailable PARKS, DR YELENA Henao Consulting Unavailable LAW ., [...] ZIEBER, DR LUIS ALFREDO Forbes Consulting Unavailable LWA ., DR DE LA TORRE Consulting Unavailable [...] ORALIA ., REGINA Attending Unavailable MISC, DR YAEÑZ Primary Care Unavailable ORALIA ., REGINA Admitting [...] Unavailable MISC, DR YAÑEZ Primary Care Unavailable PARKS, DR YELENA Henao Consulting Unavailable LAW ., [...] BARTON Attending Unavailable CEASAR LI Attending Unavailable MUKUL FOY Attending Unavailable Medications Current Medications MedicationDrug Class(es)DatesSig (Normalized)Sig (Original)atorvastatin 10 mg oral tablet (1 source)HMG-CoA Reductase InhibitorStart: 38-58-9913ptot 1 tablet by mouth once dailyatorvastatin (LIPITOR) 10 MG tablet Take 1 tablet by mouth daily 30 tablet 5 02/20/2024 Activecephalexin 500 mg oral capsule (4 sources)Cephalosporin AntibacterialStart: 04-03-2025 End: 10-38-9130izla 1 capsule by mouth in the morning, [...] mg oral tablet (8 sources)Histamine-1 Receptor AntagonistStart: 80-44-5554qxth 1 tablet by mouth once dailycetirizine (ZYRTEC) 10 MG tablet Take 1 tablet by mouth daily 90 tablet 3 03/12/2021 ActiveStart: 00-31-7875xkxy 1 tablet by mouth once daily cetirizine (ZYRTEC) 10 MG tablet Take 1 tablet by mouth daily 90 tablet 3 06/29/2020 Activedrospirenone 4 mg oral tablet (1 source)ProgestinStart: 11-40-3496plyl 1 tablet by mouth once daily Drospirenone (SLYND) 4 MG TABS Indications: Irregular menses Take 1 tablet by mouth daily 84 tablet4 05/12/2021 Activedrospirenone 3 mg / ethinyl estradiol 0.03 mg oral tablet (9 sources)Progestin, EstrogenStart: 66-87-9256LAAAK 3-0.03 MG TABS Indications: Irregular menses TAKE 1 TABLET DAILY 84 tablet 0 05/03/2021 ActiveStart: 68-32-3635wkog 1 tablet by mouth once dailydrospirenone-ethinyl estradiol (CHANDANA 28) 3-0.03 MG TABS Indications: Irregular menses Take 1 tablet by mouth daily 3 packet 4 03/03/2020 ActiveEthinyl Estradiol / Ferrous fumarate / Norethindrone (6 sources)EstrogenStart: 20-97-0271TWPXI FE 24 1-20 MG-MCG(24) TABS Indications: DUB (dysfunctional uterine bleeding) TAKE 1 TABLET DAILY 84 tablet 1 08/27/2018 ActiveStart: 63-40-6757wodn 1 tablet by mouth once dailyNorethin David-Eth Estrad-FE 1-20 MG-MCG(24) TABS Indications: Irregular menses Take 1 tablet by mouth daily 28 tablet 12 05/04/2018 ActiveStart: 63-62-0134pvav 1 tablet by mouth once dailyNorethin David-Eth Estrad-FE (JUNEL FE 24) 1-20 MG- MCG(24) TABS Indications: Irregular menses Take 1 tablet by mouth daily 84 tablet 3 07/21/2017 Activefexofenadine / Pseudoephedrine (2 sources)alpha-Adrenergic Agonist, Histamine-1 Receptor Antagonist Fexofenadine-Pseudoephedrine (JOSÉ MIGUEL-D PO) Take by mouth 0 Activefluconazole 150 mg oral tablet (1 source)Azole AntifungalStart: 48-11-7202pvrj 1 tablet by mouth once daily as neededfluconazole (DIFLUCAN) 150 MG tablet Indications: Vaginal yeast infection Take 1 tablet by mouth daily as needed (yeast) 1 tablet 11 03/24/2020 Active fluticasone propionate 0.05 mg/actuat metered dose nasal spray (5 sources)Corticosteroidfluticasone (FLONASE) 50 MCG/ACT nasal spray 1 spray by Each Nare route daily 0 Active3 ml insulin glargine 100 unt/ml pen injector (12 sources)Insulin AnalogStart: 05-14-2025 End: 50-54-7927yzajdvs glargine (Lantus SoloStar) 100 UNIT/ML pen Indications: Hyperglycemia Inject 15 Units underthe skin at bedtime FILL ACCORDING TO INSURANCE COVERAGE 3 mL 05/14/2025 06/13/2025 ActiveStart: 04-07-2025 End: 89-01-8391hnxldn 10 [IU] by subcutaneous injection at bedtimeinsulin glargine (Lantus SoloStar) 100 UNIT/ML pen Indications: Hyperglycemia Inject 10 Units underthe skin at bedtime FILL ACCORDING TO INSURANCE COVERAGE 3 mL 04/07/2025 05/14/2025 Discontinued (Reorder)loratadine 10 mg oral capsule (2 sources)take 1 capsule by mouth once dailyloratadine (CLARITIN) 10 MG capsule Take 10 mg by mouth daily 0 Lnpirl49 hr metFORMIN hydrochloride 500 mg extended release oral tablet (20 sources)BiguanideStart: 02-11-2025 End: 95-55-1229iznc 2 tablets by mouth every twenty-four hours at mealtime metFORMIN XR (Glucophage-XR) 500 MG 24 hr tablet Indications: Second trimester ([facility]) , 20 weeks gestation of ([facility]) Take 2 tablets (1,000 mg) by mouth in the evening. Take with meals 60 tablet 5 02/11/2025 08/10/2025 ActiveStart: 11-05-2024 End: 44-06-9831darr 1 tablet by mouth every twenty-four hours in the morning metFORMIN XR (Glucophage-XR) 500 MG 24 hr tablet Take 1,000 mg by mouth in the morning and 1,000 mgin the evening. 11/05/2024 02/11/2025 Discontinued (Reorder) Start: 11-05-2024 End: 49-51-9684kndWKKIWI (GLUCOPHAGE-XR) 500 MG extended release tablet Indications: BMI 37.0-37.9, adult , Class 2 obesity with body mass index (BMI) of 37.0 to 37.9 in adult, unspecified obesity type, unspecifiedwhether serious comorbidity present TAKE 2 TABLETS BY MOUTH IN THE MORNING AND AT BEDTIME 120 tablet 5 11/05/2024 05/04/2025 ActiveStart: 04-26-2024 End: 56-49-4018wefNEXHUC (GLUCOPHAGE-XR) 500 MG extended release tablet Indications: BMI 37.0-37.9, adult , Class 2 obesity with body mass index (BMI) of 37.0 to 37.9 in adult, unspecified obesity type, unspecifiedwhether serious comorbidity present Take 2 tablets by mouth in the morning and at bedtime 360 tablet 1 04/26/2024 10/23/2024 Activemetoclopramide 10 mg oral tablet (17 sources)Dopamine-2 Receptor AntagonistStart: 03-12-2025 End: 33-02-5253yhhmxswtoreuzz (Reglan) 10 MG tablet Indications: Gastroesophageal reflux [...] 50 mg oral capsule (4 sources)Nitrofuran AntibacterialStart: 62-84-3515fwvs 1 capsule by mouth once dailynitrofurantoin (MACRODANTIN) 50 MG capsule Indications: Recurrent UTI Take 1 capsule by mouth nightly 30 capsule 0 03/03/2020 Activepantoprazole 40 mg delayed release oral tablet (20 sources)Proton Pump InhibitorStart: 02-26-2025 End: 44-35-3516zxah 1 tablet by mouth before mealtimepantoprazole (Protonix) 40 MG EC tablet Indications: 23 weeks gestation of ([facility]) , Elevated blood sugar level , Gastroesophageal reflux disease without esophagitis Take 1 tablet (40 mg)by mouth in the morning. Take before meals. Do not crush, chew, or split. 30 tablet 11 02/26/2025 02/26/2026 Activephentermine hydrochloride 37.5 mg oral tablet (1 source)Sympathomimetic Amine AnorecticStart: 05-01-2024 End: 12-17-9151gzsr 37-37.9 tablets by mouth once dailyphentermine (ADIPEX-P) [...] mg oral capsule (12 sources)Start: 04-02-2025 End: 12-44-5146plsd 1 capsule by mouth once dailyiron polysaccharides (ProFe) 391.3 (180 Fe) MG capsule Indications: Dizziness Take 1 capsule (391.3mg) by mouth Daily 30 capsule 6 04/02/2025 05/02/2025 ActiveProbiotic Product (PROBIOTIC ADVANCED PO) (6 sources)Probiotic Product (PROBIOTIC ADVANCED PO) Take by mouth Active Probiotic Product (PROBIOTIC ADVANCED PO) Take by mouth 0 ActiveProgesterone (1 source)ProgesteroneStart: 26-62-3844Nqbgkctkakwn [address] 200 mg vaginally nightly 10/16/2024 ActiveProgesterone 200 MG suppository (2 sources)Start: 11-14-2024 End: 21-37-4160Gcdvjsmfjgeh 200 MG suppository Indications: History of miscarriage Insert 200 mg into the vagina at bedtime Insert suppository vaginally every night at bedtime until 12 weeks gestation 30 suppository 2 11/14/2024 12/14/2024 ActiveStart: 10-16-2024 End: 56-74-9320Xtuhrubfzcfa 200 MG suppository Indications: History of miscarriage Insert 200 mg into the vagina at bedtime Insert suppository vaginally every night at bedtime until 12 weeks gestation 30 suppository 3 10/16/2024 11/14/2024 Discontinued (Reorder)sertraline 25 mg oral tablet (20 sources)Serotonin Reuptake InhibitorStart: 61-47-3075hqai 1 tablet by mouth once dailysertraline (ZOLOFT) 25 MG tablet Take 1 tablet by mouth daily 30 tablet 5 11/12/2024 ActiveStart: 30-12-0580ndaj 1 tablet by mouth once daily in the morningsertraline (Zoloft) 50 MG tablet Indications: Anxiety, generalized TAKE 1 TABLET BY MOUTH EVERY DAYIN THE MORNING 30 tablet 3 10/25/2024 Active Start: 16-60-3730kirp 1 tablet by mouth once daily in the morningsertraline (Zoloft) 50 MG tablet Indications: Anxiety, generalized (CMS/HCC) TAKE 1 TABLET BY MOUTHEVERY DAY IN THE MORNING 30 tablet 3 06/27/2024 ActiveStart: 10-17-2023 take 1 tablet by mouth once dailysertraline (ZOLOFT) 50 MG tablet Indications: Anxiety Take 1 tablet by mouth daily 30 tablet 10/17/2023 ActiveStart: 31-50-4979rbtg 1 tablet by mouth once dailysertraline (ZOLOFT) 25 MG tablet Indications: Anxiety Take 1 tablet by mouth daily 90 tablet 3 03/29/2022 Active Start: 42-47-8123jijn 1 tablet by mouth once dailysertraline (ZOLOFT) 25 MG tablet Take 1 tablet by mouth daily 90 tablet 3 03/12/2021 ActiveStart: 68-47-8441essx 1 tablet by mouth once dailysertraline (ZOLOFT) 50 MG tablet Take 1 tablet by mouth daily 30 tablet 2 08/17/2020 Activesulfamethoxazole 800 mg / trimethoprim 160 mg oral tablet (2 sources)Dihydrofolate Reductase Inhibitor Antibacterial, Sulfonamide AntimicrobialStart: 89-20-9252mrny 1 tablet by mouth every twelve hours sulfamethoxazole-trimethoprim (BACTRIM DS;SEPTRA DS) 800-160 MG per tablet TAKE 1 TABLET BY MOUTH EVERY 12 HOURS FOR 7 DAYS 0 02/24/2020 ActiveTirzepatide (MOUNJARO) 2.5 MG/0.5ML SOPN SC injection (1 source)Start: 08-37-5363Gktnrlpjwia (MOUNJARO) 2.5 MG/0.5ML SOPN SC injection Indications: Mixed hyperlipidemia , BMI 37.0-37.9, adult , Class 2 obesity with body mass index (BMI) of 37.0 to 37.9 in adult, unspecified obesity type, unspecified whether serious comorbidity present Inject 0.5 mLs into the skin once a week 4 mL 1 05/01/2024 ActivetraZODone hydrochloride 50 mg oral tablet (1 source)Serotonin Reuptake InhibitorStart: 14-61-4829zvyr 0.5 tablet by mouth once dailytraZODone (DESYREL) 50 MG tablet Take 0.5 tablets by mouth nightly 30 tablet 2 05/01/2020 Active Completed/Discontinued Medications MedicationDrug Class(es)DatesSig (Normalized)Sig (Original)norethindrone 0.35 mg oral tablet (2 sources)Start: 03-10-2023 End: 53-77-8582ntgg 1 tablet by mouth in the morningnorethindrone (Micronor) 0.35 MG tablet Indications: General counseling and advice on contraceptive management Take 1 tablet (0.35 mg) by mouth in the morning. 28 tablet 11 03/10/2023 07/15/2024 Discontinued (Therapy completed)omeprazole 20 mg delayed release oral capsule (8 sources)Proton Pump InhibitorStart: 01-15-2025 End: 79-33-5874isdr 1 capsule by mouth before mealtimeomeprazole (PriLOSEC) [address] capsule Indications: Gastroesophageal Reflux Disease , Heartburn Take 1 capsule (20 mg) by mouth in the morning. Take before meals. Do not crush or chew. 30 capsule 3 01/15/2025 02/26/2025 Discontinued (Formulary change) Problems Active Problems Problem ClassificationProblemDateDocumented DateEpisodic/Chronic Administrative/social admission (4 sources)Dietary counseling and surveillance; Translations: [DIETARY COUNSELING AND SURVEILLANCE]Onset: 50-14-2735TajqiwvcNgdtcda disorders (20 sources)Anxiety; Translations: [Anxiety disorder, unspecified]Onset: 188078-31-2368FsjdcjsEhuhjzvhaw associated with dizziness or vertigo (2 sources)Dizziness; Translations: [Dizziness and giddiness]79-82-7259Lvwluwpc Deficiency and other anemia (2 sources)Anemia; Translations: [Anemia, unspecified]92-40-7557GoculovzOglghcox mellitus without complication (20 sources)Other abnormal glucose; Translations: [Abnormal glucose level]Onset: 04-57-8648JjftyxzeByfofeph or abnormal glucose tolerance complicating ; childbirth; or the puerperium (12 sources)Gestational diabetes mellitus in , unspecified control; Translations: [Gestational diabetes mellitus complicating ]Onset: 429293-29-8063KooraucmHocqrmtmv of lipid metabolism (7 sources)Mixed hyperlipidemia; Translations: [Mixed hyperlipidemia]Onset: 464914-83-1363JfblkklNpucrvqzzw disorders (6 sources)Gastroesophageal reflux disease; Translations: [Gastro-esophageal reflux disease without esophagitis]Onset: hronic Genitourinary symptoms and ill-defined conditions (2 sources)Urinary symptoms ; Translations: [Unspecified symptoms and signs involving the genitourinary system]30-25-5396WwymyfjrAwuwwgyhzh during ; abruptio placenta; placenta previa (1 source)Other antepartum hemorrhage, first trimester; Translations: [Other antepartum hemorrhage, first trimester]Onset: 39-42-4379BnfwbteuQqxevxqeouhdj and screening for infectious disease (4 sources)Encounter for screening for infections with a predominantly sexual mode of transmission; Translations: [Encounter for screening for human papillomavirus (HPV)]Onset: 478091-51-9460JookphycZhahlaqvhxtjt mental health disorders (20 sources)Insomnia disorder related to another mental disorder; Translations: [Insomnia due to other mental disorder]Onset: 05-02-2020 Resolved: 507400-47-2186WdqfypiXhxcu complications of (4 sources)Maternal care for excessive growth, third trimester, not applicable or unspecified; Translations: [MAT CARE EXCSS FTL GRTH 3RD TRI UNS] Onset: 63-32-6745YwlbaufzHkxhf complications of (3 sources)Maternal care for excessive growth, unspecified trimester, not applicable or unspecified; Translations: [MAT CARE EXCSS FTL GRTH UNS TRI UNS] Onset: 22-98-4692ZlhctguwPftjv complications of (2 sources)Gastroesophageal reflux disease in ; Translations: [Diseases of the digestive system complicating , unspecified trimester] 52-07-4521ZsdtxiyxYhblc female genital disorders (20 sources)Pain in female genitalia on intercourse; Translations: [Unspecified dyspareunia]Onset: 11-30-2020 Resolved: 134891-84-6700SjhnzxdRzthr female genital disorders (2 sources)Vaginal discharge; Translations: [Other specified noninflammatory disorders of vagina]62-19-7534VaneilcbTaikf injuries and conditions due to external causes (4 sources)Encounter for examination and observation following other accident; Translations: [ENC EXAM AND OBSERVATION FOLLOW OTH ACC]Onset: 96-25-2421Jzamsces Other liver diseases (3 sources)Steatosis of liver; Translations: [Fatty (change of) liver, not elsewhere classified]Onset: 804516-71-7148EobjkndKmlwd nutritional; endocrine; and metabolic disorders (1 source)Body mass index 30+ - obesity; Translations: [Body mass index (BMI) 37.0-37.9, adult]Onset: 959068-12-1543SfygiwhYddht nutritional; endocrine; and metabolic disorders (3 sources)Obesity; Translations: [Class 2 obesity with body mass index (BMI) of 37.0 to 37.9 in adult]Onset: 234090-76-9701BwvbvxxWskws and delivery including normal (20 sources)Encounter for supervision of normal , unspecified, unspecified trimester; Translations: [ state, incidental]Onset: 71-12-2641GuhcrunxWsplr screening for suspected conditions (not mental disorders or infectious disease) (20 sources)Encounter for other screening follow-up; Translations: [Encounter for screening, unspecified]Onset: 33-63-4250BlorqfniThhxr upper respiratory disease (8 sources)Seasonal allergic rhinitis; Translations: [Other seasonal allergic rhinitis]Onset: 141065-89-4880LifjdotUjgybfrumafxnk and other problems of amniotic cavity (4 sources)Subchorionic hematoma; Translations: [Other specified disorders of amniotic fluid and membranes, first trimester, not applicable or unspecified] Onset: 288837-55-7476JriktslhVjqmgwzx codes; unclassified (1 source)34 weeks gestation of ; Translations: [34 WEEKS GESTATION OF ]Onset: 51-72-0913KupkucyrKgdfkvto codes; unclassified (1 source)33 weeks gestation of ; Translations: [33 WEEKS GESTATION OF ]Onset: 86-74-6044VyylpnofIhheyoou codes; unclassified (1 source)Gestation period, 8 weeks; Translations: [8 weeks gestation of ]76-70-1816KdswrxgjQynkfyzp codes; unclassified (3 sources)H/O: miscarriage; Translations: [Personal history of other complications of , childbirth and the puerperium]65-40-9649Ecuqxxaf Residual codes; unclassified (2 sources)Gestation period, 12 weeks; Translations: [12 weeks gestation of ]93-11-4933RybyhlhvZufcgpkk codes; unclassified (2 sources)Gestation period, 17 weeks; Translations: [17 weeks gestation of ]91-70-7205RkidtqywTnmlifuo codes; unclassified (2 sources)Gestation period, 20 weeks; Translations: [20 weeks gestation of ]29-34-2806DvtjqtuoHpvextky codes; unclassified (20 sources)Gestation period, 23 weeks; Translations: [23 weeks gestation of ]Onset: 156014-05-5698DurmfvkcJblyhguf codes; unclassified (2 sources)Gestation period, 25 weeks; Translations: [25 weeks gestation of ]72-97-8003ZhpynmswHzycmqdt codes; unclassified (2 sources)Gestation period, 28 weeks; Translations: [28 weeks gestation of ]52-50-3547DojfmdnwUheakszr codes; unclassified (2 sources)Gestation period, 30 weeks; Translations: [30 weeks gestation of ]23-94-6110SjfdsfqwFovpijdu codes; unclassified (2 sources)Gestation period, 32 weeks; Translations: [32 weeks gestation of ]68-33-6618MhlfkchgAbkknumm codes; unclassified (2 sources)Gestation period, 34 weeks; Translations: [34 weeks gestation of ]22-92-9589DudlxkhlCdjzvzctivzv (1 source)Cancer cervix screening status; Translations: [Screening for cervical cancer]Unclassified (3 sources)Patient encounter status; Translations: [Encounter for annual routine gynecological examination]Unclassified (20 sources)OB RemindersOnset: 332605-67-5071 Past or Other Problems Problem ClassificationProblemDateDocumented DateEpisodic/ChronicCardiac dysrhythmias (2 sources)Palpitations; Translations: [Palpitations]Onset: 17-70-0775Wuotpyli Deficiency and other anemia (3 sources)Iron deficiency anemia; Translations: [Iron deficiency anemia, unspecified]Onset: 112231-95-2704OvdeurmuOorbgnxrya and other anemia (1 source)Iron deficiency anemia, unspecified; Translations: [Iron deficiency anemia, unspecified]Onset: 73-31-7759LwllsqcuHsxzpmf and fatigue (20 sources)Fatigue; Translations: [Other fatigue]Onset: EpisodicMenstrual disorders (20 sources)Amenorrhea; Translations: [Amenorrhea, unspecified]Onset: 06-23-2022 Resolved: 24-66-8797IyzyarfZvush disorders of stomach and duodenum (20 sources)Indigestion; Translations: [Functional dyspepsia]Onset: 01-13-2023 24-86-6624YapyqituFsxma female genital disorders (4 sources)Other specified noninflammatory disorders of vagina; Translations: [OTH SPEC NONINFLAMMATORY D/O VAGINA]Onset: 55-44-0570BidemcsjNkepr gastrointestinal disorders (20 sources)Heartburn; Translations: [Heartburn]Onset: EpisodicOther liver diseases (4 sources)Elevated liver enzymes level; Translations: [Abnormal levels of other serum enzymes]Onset: 896866-55-3571MvianhfoObzhu liver diseases (1 source)Abnormal levels of other serum enzymes; Translations: [Abnormal levels of other serum enzymes]Onset: 54-86-8672KzwojoghKekkm skin disorders (3 sources)Acne; Translations: [Acne, unspecified]Onset: 10-17-2023 Resolved: 273992-03-2256LsmrfonpMbrvl upper respiratory infections (2 sources)Sore throat symptom; Translations: [Acute pharyngitis, unspecified] Onset: 09-10-2024 Resolved: 305040-85-6316TuignxuzOsjdflho codes; unclassified (1 source)Family history of other diseases of the digestive system; Translations: [Family history of other diseases of the digestive system]Onset: 02-25-6259HimibkwiIkbjqqy tract infections (20 sources)Recurrent urinary tract infection; Translations: [Urinary tract infection, site not specified]Onset: 11-30-2020 Resolved: 32-88-6388Xzawjfht Results Test NameValueInterpretationReference RangeFacilityUrinalysis macro (dipstick) panel (U)on 38-37-2577Wyhnkzfjf, UANegativeNegative - 4(70) +++ mg/dLNOMS HealthcareBlood, UANegativeNegative - 50 Yunior/mcLNOMS HealthcareClarity, UAClear NOMS HealthcareColor, UAYellowNOMS HealthcareGlucose, UANegativeNegative - 2000(110) ++++ mg/dLNOMS HealthcareInterpretation and review of laboratory resultsNormalNOMS HealthcareKetones, UANegativeNegative - 160(16) ++++ mg/dLNOMS HealthcareLeukocytes, UANegativeNegative - 500+++ Trip/mcLNOMS HealthcareNitrite, UANegativeNegative - PositiveNOMS HealthcarepH, UA6.55 - 9NOMS Healthcare Protein, UANegativeNegative - 2000(20) ++++ mg/dLNOMS HealthcareSpec Grav, UA 1.0101 - 1.03NOMS HealthcareUrobilinogen, UA2.00.2 - 12 mg/dLNOMS HealthcareNOMS HealthcareUS OB BPP W NON-STRESSon 48-63-6873[place] [address] Ultrasound Report Signed Patient: VINNY DOWNEY MR#: [id number] : 2000 Acct:[id number] Age/Sex: 24 / F ADM Date: 04/30/25 Loc: Attending Dr: Mukul Foy D.O. Ordering Physician: Mukul Foy D.O. Date of Service: 04/30/25 Procedure(s): US OB BPP w non-stress Accession Number(s): [id number] cc: Mukul Foy D.O.; Ynes Rodriguez [employer] [address] [address] Patient Name: VINNY DOWNEY MRN: [id number] date: 2000 Sex: F Assigned Patient Location: [facility] Current Patient Location: Accession/Order Number: [id number] Exam Date: 04/30/2025 15:57 Report Date: 04/30/2025 22:59 At the request of: MUKUL FOY DO Procedure: US OB BPP w non-stress Ultrasound biophysical profile INDICATION: Gestational diabetes COMPARISON: 04/05/2025 FINDINGS/IMPRESSION:: Fetus cephalic position. 8/8 score biophysical profile. heart rate 145 beats per minutes. JAMAL 12.7 cm. Impression dictated by: Chevy Moreland M.D. 04/30/2025 10:59 PM Dictation Location: [place] [address] Electronically authenticated by: [id number] Y Date: 04/30/2025 22:59 Dictated By: Chevy Moreland M.D. Signed By: 04/30/256 DD/ 58 TD/TT: Engagement Director:MILYHRadiology, Radiologist, - 04/30/2025 [place] [address] Ultrasound Report Signed Patient: VINNY DOWNEY MR#: [id number] : 2000 Acct:[id number] Age/Sex: 24 / F ADM Date: 04/30/25 Loc: US Attending Dr: Mukul Foy D.O. Ordering Physician: Mukul Foy D.O. Date of Service: 04/30/25 Procedure(s): US OB BPP w non-stress Accession Number(s): [id number] cc: Mukul Foy D.O.; Ynes Rodriguez [employer] [place] [address] Patient Name: VINNY DOWNEY MRN: [id number] date: 2000 Sex: F Assigned Patient Location: [facility] Current Patient Location: Accession/Order Number: [id number] Exam Date: 04/30/2025 15:57 Report Date: 04/30/2025 22:59 At the request of: MUKUL FOY DO Procedure: US OB BPP w non-stress Ultrasound biophysical profile INDICATION: Gestational diabetes COMPARISON: 04/05/2025 FINDINGS/IMPRESSION:: Fetus cephalic position. 8/8 score biophysical profile. heart rate 145 beats per minutes. JAMAL 12.7 cm. Impression dictated by: Chevy Moreland M.D. 04/30/2025 10:59 PM Dictation Location: [place] [address] Electronically authenticated by: [id number] Y Date: 04/30/2025 22:59 Dictated By: Chevy Moreland M.D. Signed By: 04/30/252301 DD/ 58 TD/TT: Engagement Director: DIANE HealthcareRadiology Study observation (narrative)[facility] HealthcareUS OB BPP W NON-STRESSOrdered By: Radiologist Radiology on 73-76-1309DEVT Healthcare Work Phone: Urinalysis macro (dipstick) panel (U)on 04-30-2025 Bilirubin, UANegativeNegative - 4(70) +++ mg/dLNOMS HealthcareBlood, UANegative Negative - 50 Yunior/mcLNOMS HealthcareClarity, UAClearNOMS HealthcareColor, UA YellowNOMS HealthcareGlucose, UANegativeNegative - 1999(110) ++++ mg/dLNOMS HealthcareInterpretation and review of laboratory resultsAbnormalNOWI Healthcare Ketones, UANegativeNegative - 160(16) ++++ mg/dLNOMS HealthcareLeukocytes, UA1+ Negative - 500+++ Trip/mcLNOMS HealthcareNitrite, UANegativeNegative - Positive NOMS HealthcarepH, UA6.55 - 9NOMS HealthcareProtein, UANegativeNegative - 2000(20) ++++ mg/dLNOMS HealthcareSpec Grav, UA1.011 - 1.03[facility] Healthcare Urobilinogen, UA2.00.2 - 12 mg/dLNOMS HealthcareNOMS HealthcareUrinalysis macro (dipstick) panel (U)on 50-46-1657Weskcvhel, UANegativeNegative - 4(70) +++ mg/dL [facility] HealthcareBlood, UANegativeNegative - 50 Yunior/mcLNOMS HealthcareClarity, UA ClearNOMS HealthcareColor, UAYellowNOMS HealthcareGlucose, UANegativeNegative - 2000(110) ++++ mg/dLNOMS HealthcareInterpretation and review of laboratory resultsNormalNOMS HealthcareKetones, UANegativeNegative - 160(16) ++++ mg/dLNOWI HealthcareLeukocytes, UANegativeNegative - 500+++ Trip/mcLNOWI HealthcareNitrite, UANegativeNegative - PositiveNOMS HealthcarepH, UA6.55 - 9NOWI Healthcare Protein, UANegativeNegative - 2000(20) ++++ mg/dLNOWI HealthcareSpec Grav, UA 1.0051 - 1.03NOWI HealthcareUrobilinogen, UA0.20.2 - 12 mg/dLNOUniversity HospitalNOWI HealthcareALL CBC WITH AUTO DIFFon 48-54-2165SXOJPXJZU ABSOLUTE LXFD6CLIPUniversity HospitalBasophils/100 WBC (Bld)0.2 %0.2 - 2.0 %NOMSalem Memorial District HospitalEosinophils/100 WBC (Bld)1.1 %0.9 - 7.0 %[facility] HospitalErythrocyte distribution width (RBC) [Ratio]12.8 %11.0 - 15.0 %[facility] HospitalHematocrit (Bld) [Volume fraction]30.7 %Low36.0 - 48.0 %[facility] HospitalHemoglobin (Bld) [Mass/Vol]10.3 g/dLLow12.0 - 16.0 g/dLSt. Louis Children's HospitalIMMATURE GRANULOCYTES ABS AUTO0.04HighSt. [facility] Hospital Immature granulocytes/100 WBC (Bld)0.4 %0.0 - 0.5 %[facility] HospitalInterpretation and review of laboratory resultsAbnormalSt. Louis Children's HospitalLYMPHOCYTES ABSOLUTE AUTO1.9NOUniversity HospitalLymphocytes/100 WBC (Bld)17.1 %Low20.5 - 60.0 %[facility]red HospitalH (RBC) [Entitic mass]29.7 pg26.7 - 34.0 pgKindred HospitalHC (RBC) [Mass/Vol]33.6 g/dL29.9 - 35.2 g/dLKindred HospitalV (RBC) [Entitic vol]88.5 fL 81.0 - 99.0 fLNOUniversity HospitalMONOCYTES ABSOLUTE AUTO0.7NOUniversity Hospital Monocytes/100 WBC (Bld)6.5 %1.7 - 12.0 %NOMSalem Memorial District HospitalNEUTROPHILS ABSOLUTE AUTO 8.2HighNOMS HealthcareNeutrophils/100 WBC (Bld)74.7 %43.0 - 75.0 %NOMS HealthcarePlatelet mean volume (Bld) [Entitic vol]8.7 fLLow9.5 - 13.5 fLNOMS HealthcareTBH EO #0.1NOMS HealthcareTBH SRZ841TJLI HealthcareTBH RBC3.47LowNOMS HealthcareTBH SUE65KPHF HealthcareCLINISYNCNOMS HealthcareUS OB GROWTHon 83-39-8975[place] [address] Ultrasound Report Signed Patient: VINNY DOWNEY MR#: [id number] : 2000 Acct:[id number] Age/Sex: 24 / F ADM Date: 04/05/25 Loc: US Attending Dr: Regina Barton Ordering Physician: Regina Barton Date of Service: 04/05/25 Procedure(s): US OB growth Accession Number(s): [id number] cc: Regina Barton; Physician,Non-Staff M.DSania [place] [id number] Patient Name: VINNY DOWNEY MRN: [id number] date: 2000 Sex: F Assigned Patient Location: US Current Patient Location: LAB Accession/Order Number: [id number] Exam Date: 04/05/2025 10:00 Report Date: 04/05/2025 [...] Peraza M.D. 04/05/2025 12:08 PM Dictation Location: [employer] Electronically authenticated by: [id number] Y Date: 04/05/2025 12:08 Dictated By: Daryn Peraza D.O. Signed By: 04/05/251210 DD/ 07 TD/TT: Engagement Director:JAMILAHadiologvicki, Radiologist, - 04/05/[address] [address] Ultrasound Report Signed Patient: VINNY DOWNEY MR#: [id number] : 2000 Acct:[id number] Age/Sex: 24 / F ADM Date: 04/05/25 Loc: US Attending Dr: Regina Barton Ordering Physician: Regina Barton Date of Service: 04/05/25 Procedure(s): US OB growth Accession Number(s): [id number] cc: Regina Barton; Physician,Non-Staff Khadar The [place] [id number] Patient Name: VINNY DOWNEY MRN: [facility]:[id number] date: 2000 Sex: F Assigned Patient Location: US Current Patient Location: LAB Accession/Order Number: [id number] Exam Date: 04/05/2025 10:00 Report Date: 04/05/2025 [...] Peraza M.D. 04/05/2025 12:08 PM Dictation Location: [employer] TechnologiesOVERLAKE HOSPITAL MEDICAL CENTERNixon Electronically authenticated by: [id number] Y Date: 04/05/2025 12:08 Dictated By: Daryn Peraza D.O. Signed By: 04/05/251210 DD/ 07 TD/TT: Engagement Director: DIANE HealthcareRadiology Study observation (narrative)[facility] HealthcareUS OB GROWTHOrdered By: Radiologist Radiology on 17-39-0012TUBB Healthcare Work Phone: Urinalysis macro (dipstick) panel (U)on 04-03-2025 Bilirubin, UANegativeNegative - 4(70) +++ mg/dLNOMS HealthcareBlood, UANegative Negative - 50 Yunior/mcLNOMS HealthcareClarity, UAClearNOMS HealthcareColor, UA YellowNOMS HealthcareGlucose, UANegativeNegative - 1999(110) ++++ mg/dLNOMS HealthcareInterpretation and review of laboratory resultsAbnormalNOWI Healthcare Ketones, UANegativeNegative - 160(16) ++++ mg/dLNOMS HealthcareLeukocytes, UA PositiveNegative - 500+++ Trip/mcLNOMS HealthcareNitrite, UANegativeNegative - PositiveNOMS HealthcarepH, UA6.55 - 9NOMS HealthcareProtein, UANegativeNegative - 1999(20) ++++ mg/dLNOMS HealthcareSpec Grav, UA1.011 - 1.03[facility] Urobilinogen, UA1.00.2 - 12 mg/dLNOMS HealthcareNOMS HealthcareUrinalysis macro (dipstick) panel (U)on 47-01-9222Iayxusssw, UANegativeNegative - 4(70) +++ mg/dL NOMS HealthcareBlood, [...] - 1.03NOMS HealthcareUrobilinogen, UA1.00.2 - 12 mg/dLNOMS St. Rita'S HospitalNOWI HealthcareUrinalysis macro (dipstick) panel (U)on 83-04-5402Dldqffvjs, UA NegativeNegative - 4(70) +++ mg/dLNOMS HealthcareBlood, UANegativeNegative - 50 Yunior/mcLNOWI HealthcareClarity, UAClearNOMS HealthcareColor, UAYellowNOMS HealthcareGlucose, UANegativeNegative - 2000(110) ++++ mg/dLNOWI Healthcare Interpretation and review of laboratory resultsNormalNOMS HealthcareKetones, UA NegativeNegative - 160(16) ++++ mg/dLBLUE MOUNTAIN HOSPITAL, INC. HealthcareLeukocytes, UANegative Negative - 500+++ Trip/mcLNOWI HealthcareNitrite, UANegativeNegative - Positive NOMS HealthcarepH, UA65 - 9NOMS HealthcareProtein, UANegativeNegative - 2000(20) ++++ mg/dLNOMS HealthcareSpec Grav, UA1.011 - 1.03NOMS HealthcareUrobilinogen, UA0.20.2 - 12 mg/dLNOMS St. Rita'S HospitalNOWI HealthcareUS OB 14+ WEEKS ANATOMY SCANon 00-[birth year]-1951HJ OB 14+ WEEKS ANATOMY SCANFINDINGS: A single, [...] 24, 2025. TRANSCRIBED BY: ELECTRONICALLY SIGNED BY: Myriam ToddalNot AvailableComment on above:Order Comment: US OB ANATOMY SINGLE W US OB CERVICAL LENGTH Estimated Date of Delivery: 06/23/25 Gestational Age as of 01/15/2025: 21v7nJjhliuxagn macro (dipstick) panel (U)on 68-00-5795Okgxajfvw, UANegativeNegative - 4(70) +++ mg/dLNOMS HealthcareBlood, UANegativeNegative [...] - 1.03NOMS HealthcareUrobilinogen, UA1.00.2 - 12 mg/dLNOMS HealthcareNOWI HealthcareRECURRENT VAGINITIS (HTRX)on 24-56-3634PULDIGEMH KXUABHU7FDCE HealthcareATOPOBIUM VAGINAENot detectedNOMS HealthcareBVAB 2,3 (BACTERIAL VAGINOSIS ASSOCIATED BACTERIA 2, 3); MOBILUNCUS RGY5YKBW HealthcareBVAB 2,3 (BACTERIAL VAGINOSIS ASSOCIATED BACTERIA 2, 3); MOBILUNCUS SPPNot detectedNOMS HealthcareCANDIDA ALBICANS, PARAPSILOSIS, KPAWEZNKDG9NYWW HealthcareCANDIDA ALBICANS, PARAPSILOSIS, TROPICALISNot detectedNOMS HealthcareCANDIDA GLABRATA0 NOMS HealthcareCANDIDA GLABRATANot detectedNOMS HealthcareCANDIDA RAQMSQ8WAGS HealthcareCANDIDA KRUSEINot detectedNOMS HealthcareCHLAMYDIA UQTXDHCPASH2BLWC HealthcareCHLAMYDIA TRACHOMATISNot detectedNOMS HealthcareGARDNERELLA VAGINALIS0 NOMS HealthcareGARDNERELLA VAGINALISNot detectedNOMS HealthcareMEGASPHAERA (TYPES 1, 2)0NOMS HealthcareMEGASPHAERA (TYPES 1, 2)Not detectedNOMS Healthcare MYCOPLASMA JFZHEPCIOC5JWUG HealthcareMYCOPLASMA GENITALIUMNot detectedNOMS HealthcareNEISSERIA ZSTPCDIKZAF6PZCK HealthcareNEISSERIA GONORRHOEAENot detected NOMS HealthcareTRICHOMONAS QKSZQWKRA8OGBS HealthcareTRICHOMONAS VAGINALISNot detectedNOMS HealthcareNOMS HealthcareCBCon 22-09-9264Jdogqlwgvjc distribution width (RBC) [Ratio]12.6 %11.8 - 14.4 %[facility]'S HospitalHematocrit (Bld) [Volume fraction]35.4 %Low36.3 - 47.1 %[facility]S HospitalHemoglobin (Bld) [Mass/Vol]11.7 g/dLLow11.9 - 15.1 g/dLBon [facility] Medical CenterInterpretation and review of laboratory resultsAbnormalPage Memorial Hospital (RBC) [Entitic mass]30 pg25.2 - 33.5 pgCritical access hospitalHC (RBC) [Mass/Vol]33.1 g/dL 28.4 - 34.8 g/dLBon [facility] HospitalV (RBC) [Entitic vol]90.8 fL82.6 - 102.9 fLInova Children'S HospitalNucleated RBC/100 WBC (Bld) [Ratio]0 %0.0 per 100 WBCInova Children'S HospitalPlatelet mean volume (Bld) [Entitic vol]8.7 fL8.1 - 13.5 fLInova Children'S HospitalPlatelets (Bld) [#/Vol]316 10*3/uLInova Children'S HospitalRBC (Bld) [#/Vol]3.9 10*6/uLLow3.95 - 5.11 m/[facility] Children's HospitalWBC other (Bld) [#/Vol]10.2Bon St. [facility]'s HospitalErythrocyte distribution width (RBC) [Ratio]12.6 %Mpbtdf40.8-14.4[facility] HospitalComment on above:Performed By: #### GLUSC, CBC #### [facility] [address] [place] [place] [address] Respiratory Manager: Yelena Greco MDHematocrit (Bld) [Volume fraction]35.4 %Low 36.3-47.1MCleveland Clinic Akron General HospitalComment on above:Performed By: #### GLUSC, CBC #### [address] [place] [place] [address] Respiratory Manager: Yelena Greco MDHemoglobin (Bld) [Mass/Vol]11.7 g/dLLow11.9-15.1 [facility] HospitalComment on above:Performed By: #### GLUSC, CBC #### [address] [place], [place] [id number] Respiratory Manager: YULY ArandaCH (RBC) [Entitic mass]30.0 gzWwhktb28.2-33.5 [facility] HospitalComment on above:Performed By: #### GLUSC, CBC #### [address] [place], [place] [id number] Respiratory Manager: TY ArandaC (RBC) [Mass/Vol]33.1 g/oFDjedkg54.4-34.8[facility] HospitalComment on above:Performed By: #### GLUSC, CBC #### [address] [place], [place] [phone] Respiratory Manager: YULY ArandaCV (RBC) [Entitic vol]90.8 sNDcqbqt20.6-102.9 [facility] HospitalComment on above:Performed By: #### GLUSC, CBC #### [address] [place] [place] [address] Respiratory Manager: Yelena Greco MDNRBC Automated0.0 per 100 WBCNormal0.0[facility] HospitalComment on above:Performed By: #### GLUSC, CBC #### [address] [place] [place] [address] Respiratory Manager: ROLANDO Arandalatelet mean volume (Bld) [Entitic vol]8.7 fL Normal8.1-13.5[facility] HospitalComment on above:Performed By: #### GLUSC, CBC #### [address] [place] [place] [address] Respiratory Manager: Richie Aranda ([facility]) [#/Vol]316 10*3/nGTgwntc233-482 [facility] HospitalComment on above:Performed By: #### GLUSC, CBC #### [facility] [address] [place] [address] Respiratory Manager: BILL Aranda ([facility]) [#/Vol]3.90 10*6/uLLow3.95-5.11[facility] HospitalComment on above:Performed By: #### GLUSC, CBC #### [address] [place], [place] [id number] Respiratory Manager: LANEY Aranda ([facility]) [#/Vol]10.2 10*3/uLNormal3.5-11.3MSelect Medical Specialty Hospital - CantonComment on above:Performed By: #### GLUSC, CBC #### [address] [place] [place] [address] Respiratory Manager: Yelena Greco MDGlucose Challenge Gestationalon 73-22-3111GGD ADMN GlucolaBon [facility] Medical CenterGlucose 1 Hr post 50 g glucose PO [Mass/Vol]184 mg/bJTqsk28 - 135 mg/dLBon [facility] CenterInterpretation and review of laboratory resultsAbnormalBon [facility] CenterBon [facility] Glucose Toya Scr 50gon 21-07-8768Tkyeukd [Mass/Vol]184 mg/kZGwed98-265UcnlsCleveland Clinic Mercy HospitalComment on above:Performed By: #### GLUSC, CBC #### [address] [place] [place] [address] Respiratory Manager: Yelena Greco MDGlu Administered viaGlucolaNormalMercy Connecticut Children'S Medical CenterComment on above:Performed By: #### GLUSC, [facility] #### [facility] [address] [place] [address] Respiratory Manager: SEFERINO Aranda OB LESS THAN 14 WEEKS SINGLE OR FIRST GESTATION on 83-78-7517BBRKVARPCFS: FIRST TRIMESTER OBSTETRIC ULTRASOUND 12/20/2024 TECHNIQUE: 1. [...] by: Noah Rivero MD 12/23/[address] [facility] HospitalRadiology Study observation (narrative)[facility] HospitalUS OB LESS THAN 14 WEEKS SINGLE OR FIRST GESTATIONOrdered By: Radiologist Radiology on 42-29-1222FGYU Healthcare Work Phone: US OB LESS THAN 14 WEEKS SINGLE OR FIRST GESTATION W DOPPLERon 16-40-8224FM OB LESS THAN 14 WEEKS SINGLE OR [...] Signed by: Noah Rivero MD 12/23/24 Final resultNormalMercy Hillsdale HospitalUrinalysis macro (dipstick) panel (U)on 56-64-9106Kekkxvsuq, UANegativeNegative - 4(70) +++ mg/dLNOMS HealthcareBlood, UAPositiveNegative - 50 Yunior/mcLNOMS HealthcareClarity, UAClearNOMS Healthcare Color, UAYellowNOMS HealthcareGlucose, UANegativeNegative - 1999(110) ++++ mg/dL NOMS HealthcareInterpretation and review of laboratory resultsAbnormalNOMS HealthcareKetones, UANegativeNegative - 160(16) ++++ mg/dLNOMS Healthcare Leukocytes, UANegativeNegative - 500+++ Trip/mcLNOMS HealthcareNitrite, UA NegativeNegative - PositiveNOMS HealthcarepH, UA75 - 9NOMS HealthcareProtein, UA NegativeNegative - 2000(20) ++++ mg/dLNOMS HealthcareSpec Grav, UA1.011 - 1.03 NOMS HealthcareUrobilinogen, UA1.00.2 - 12 mg/dLNOMS HealthcareNOMS Healthcare HCG ( test) Ql (U)on 24-89-6473Gioyskzfzgaxyr and review of laboratory resultsAbnormalNOMS HealthcarePreg Test, UrPositiveNegativeNOMS HealthcareNOMS HealthcareUS OB TRANSVAGINALon 93-28-3544ZH OB TRANSVAGINALEXAM: US OB TRANSVAGINAL HISTORY: Dating. [...] II, MD, PHD at 15-Nov-2024 09:44:32 AM [facility] TeleradiologyNormalNot AvailableComment on above:Order Comment: US OB TRANSVAGINAL No LMP recorded.Urinalysis macro (dipstick) panel (U)on 20-00-7077Pbbszlahi, UA NegativeNegative - 4(70) +++ mg/dLNOMS HealthcareBlood, UANegativeNegative - 50 Yunior/mcLNOMS HealthcareClarity, UAClearNOMS HealthcareColor, UAYellowNOMS HealthcareGlucose, UANegativeNegative - 1999(110) ++++ mg/dLNOMS Healthcare Interpretation and review of laboratory resultsNormalNOMS HealthcareKetones, UA NegativeNegative - 160(16) ++++ mg/dLNOMS HealthcareLeukocytes, UANegative Negative - 500+++ Trip/mcLNOMS HealthcareNitrite, UANegativeNegative - Positive NOMS HealthcarepH, UA6.55 - 9NOMS HealthcareProtein, UANegativeNegative - 1999(20) ++++ mg/dLNOMS HealthcareSpec Grav, UA1.0051 - 1.03[facility] Urobilinogen, UA0.20.2 - 12 mg/dLECU Health Bertie HospitalIGP,APTIMA HPV,AGE GDLNon 73-02-6409NBK LN ACOG TESTINGNote.[facility] HealthcareComment on above:TESTS RESULT FLAG UNITS REF RANGE LAB Clinician Provided Cytology Information Source.............Cervix;Endocervix No. of containers..01 ThinPrep Vial Age Kelbyo ACOG Addie... FLAG LEGEND: L-Low Normal,H-High Normal,LL-Alert Low,HH-Alert High <-Panic Low,>-Panic High,A-Abnormal,AA-Critical Abnormal Performed at: 01 =G [address] [address] Anastasiya Moses MD, IGP, RFX APTIMA HPV ASCUNote.[facility] HealthcareComment on above:TESTS RESULT FLAG UNITS REF RANGE LAB DIAGNOSIS: 02 NEGATIVE FOR INTRAEPITHELIAL LESION OR MALIGNANCY. Specimen adequacy: 02 Satisfactory for evaluation. Endocervical and/or squamous metaplastic cells (endocervical component) are present. Performed by: 02 Maico Galaviz, Etl Programmer (ASC) . 02 Note: Note 02 The Pap [...] High,A-Abnormal,AA-Critical Abnormal Performed at: 02 WB [facility] [address] [address] Anastasiya Moses MD, Performed at: =G - [facility] [address] [id number] Respiratory Manager: Anastasiya Moses MD, Phone: [phone] Performed at: WB - [facility] [address] [id number] Respiratory Manager: Anastasiya Moses MD, Phone: [phone] BRUSH-SPATULA CERVIX ENDOCERVIX CLINISYNCNOMS HealthcareComp Metabolic Profon 17-57-4442Oaedzuv [Mass/Vol]4.6 g/dLNormal3.5-5.2[facility] Medical CenterComharbor oaks hospital on above:Performed By: #### CP #### [facility] [address] [place] [address] [place] [address] Respiratory Manager: Yelena Greco MDAlbumin/Glob Ratio1.4Vqsyle2.0-2.5[facility] HospitalComment on above:Performed By: #### CP #### [address] [place] [place] [address] Respiratory Manager: Mechelle Arandaline Phos71 U/YOcijjv96-728ZgypyCleveland Clinic Mercy HospitalComment on above:Performed By: #### CP #### [address] [place] [address] Respiratory Manager: Yelena Greco MDALT [Catalytic activity/Vol]41 U/FSuof56-79WlavdCleveland Clinic Mercy HospitalComment on above:Performed By: #### CP #### [address] [place] [address] Respiratory Manager: Yelena Greco MDAnion gap [Moles/Vol]10 mmol/LNormal9-16[facility] HospitalComment on above:Performed By: #### CP #### [address] [place] [place] [address] Respiratory Manager: Yelena Greco MDAST [Catalytic activity/Vol]34 U/RKbhqzo52-13VthjhCleveland Clinic Mercy HospitalComment on above:Performed By: #### CP #### [address] [place] [place] [address] Respiratory Manager: Yelena Greco MDBilirubin [Mass/Vol]0.4 mg/dLNormal0.00-1.20[facility] HospitalComment on above:Performed By: #### CP #### [address] [place] [place] [address] Respiratory Manager: Yelena Greco MDBUN/CRE Uyuen99Sqqu6-65Hfwwc [facility] Comment on above:Performed By: #### CP #### [address] [place] [address] Respiratory Manager: NATALIO Arandaalcium [Mass/Vol]9.4 mg/dLNormal8.6-10.4[facility] HospitalComment on above:Performed By: #### CP #### [address] [place], [place] [id number] Respiratory Manager: NATALIO Arandahloride [Moles/Vol]103 mmol/XTtbsjl16-402ZwhhcCleveland Clinic Mercy HospitalComment on above:Performed By: #### CP #### [address] [place], [place] [address]83 Respiratory Manager: Yelena Greco MDCO2 [Moles/Vol]25 mmol/NMvnvhr11-58CvttiCleveland Clinic Mercy HospitalComment on above:Performed By: #### CP #### [address] [place], [place] 18[address]383 Respiratory Manager: NATALIO Arandareatinine [Mass/Vol]0.6 mg/dLNormal0.50-0.90[facility] HospitalComment on above:Performed By: #### CP #### [address] [place], [place] [id number] Respiratory Manager: Yelena Greco MDGFR/1.73 sq M.predicted among non-blacks MDRD (S/P/Bld) [Vol rate/Area]mL/min/{1.73_m2}Normal>60[facility] HospitalComment on above:Result Comment: These results are [...] renal tubular secretion.Performed By: #### CP #### [address] [place], [place] [address]883 Respiratory Manager: Yelena Greco MDGlucose [Mass/Vol]83 mg/nUMvqgnk62-36BbeixSelect Medical Specialty Hospital - CantonComment on above:Performed By: #### CP #### [address] [place], [place] [id number] Respiratory Manager: ROLANDO Arandaotassium [Moles/Vol]4.6 mmol/LNormal3.7-5.3MC[facility] HospitalComment on above:Performed By: #### CP #### [address] [place], [place] 246[address]83 Respiratory Manager: Yelena Greco MDProtein [Mass/Vol]7.8 g/dLNormal6.6-8.7[facility] HospitalComment on above:Performed By: #### CP #### [address] [place], [place] [address]83 Respiratory Manager: Yelena Greco MDSodium [Moles/Vol]138 mmol/LTrfuan693-694BicpqCleveland Clinic Mercy HospitalComment on above:Performed By: #### CP #### [address] [place], [place] [id number] Respiratory Manager: Yelena Greco MDUrea nitrogen [Mass/Vol]13 mg/dLNormal6-20[facility] HospitalComment on above:Performed By: #### CP #### [address] [place], [place] [address]83 Respiratory Manager: NATALIO Arandaomprehensive Metabolic Panelon 65-88-5453Lxlrsvk [Mass/Vol]4.6 g/dL3.5 - 5.2 g/dLBon [facility] Medical CenterAlbumin/Globulin [Mass ratio]1.5 {ratio}1.0 - 2.5Bon [facility] Medical CenterALP [Catalytic activity/Vol]71 U/L35 - 104 U/LBon Secours Mercy HealthALT [Catalytic activity/Vol]41 U/LHigh10 - 35 U/LBon SecThe Christ HospitalAnion gap [Moles/Vol]10 mmol/L9 - 16 mmol/LBon [facility] HealthAST [Catalytic activity/Vol]34 U/L10 - 35 U/LBon SecChristus [facility]land [facility] Center HealthBilirubin [Mass/Vol]0.4 mg/dL0.00 - 1.20 mg/dLBon [facility] HealthCalcium [Mass/Vol]9.4 mg/dL8.6 - 10.4 mg/dLBon [facility] Chloride [Moles/Vol]103 mmol/L98 - 107 mmol/LBon SecChristus Highland [facility] Center HealthCO2 [Moles/Vol]25 mmol/L20 - 31 mmol/LBon [facility] HealthCreatinine [Mass/Vol] 0.6 mg/dL0.50 - 0.90 mg/dLBon [facility] HealthEst, Glom Filt Rate- PINFBon [facility] CenterComment on above: These results are not intended [...] secretion. Glucose [Mass/Vol]83 mg/dL74 - 99 mg/dLBon [facility] CenterInterpretation and review of laboratory resultsAbnormalCentra Health HealthPotassium [Moles/Vol]4.6 mmol/L3.7 - 5.3 mmol/LBon [facility] HealthProtein [Mass/Vol] 7.8 g/dL6.6 - 8.7 g/dLBon [facility] Medical CenterSodium [Moles/Vol]138 mmol/L136 - 145 mmol/LBon [facility] HealthUrea nitrogen [Mass/Vol]13 mg/dL6 - 20 mg/dL [facility]S HospitalUrea nitrogen/Creatinine [Mass ratio]22 mg/mgHigh9 - 20 [facility] HospitalLipid Panelon 05-20-2024 Cholesterol [Mass/Vol]152 mg/dL0 - 199 mg/dLBon [facility] CenterComment on above: Cholesterol Guidelines: <200 Desirable 200-240 Borderline >240 Undesirable Cholesterol in HDL [Mass/Vol]33 mg/dLLow40 - PINF mg/dLBon [facility] Comment on above: HDL Guidelines: <40 Undesirable 40-59 Borderline >59 Desirable Cholesterol in LDL [Mass/Vol]88 mg/dL0 - 100 mg/dLBon [facility] Comment on above: LDL Guidelines: <100 Desirable 100-129 Near to/above Desirable 130-159 Borderline >159 Undesirable Direct (measured) LDL and calculated LDL are not interchangeable tests. Cholesterol in VLDL [Mass/Vol]31 mg/dLBon [facility] Giftbar Cholesterol.total/Cholesterol in HDL [Mass ratio]5.0 {ratio}[facility] GiftbarInterpretation and review of laboratory resultsAbnormalInova Children'S HospitalTriglyceride [Mass/Vol]156 mg/dLHighNINF - 150 mg/dLBon [facility] CenterComment on above: Triglyceride Guidelines: <150 Desirable 150-199 Borderline 200-499 High >499 Very high Based on AHA Guidelines for fasting triglyceride, April 2012. [facility]S HospitalLipid Profileon 98-99-0008Carknmqnooo [Mass/Vol]152 mg/dLNormal0-199[facility] HospitalComharbor oaks hospital on above:Result Comment: Cholesterol Guidelines: <200 Desirable 200-240 Borderline >240 UndesirablePerformed By: #### LIPR #### [facility] [address] [place], [place] [id number] Respiratory Manager: NATALIO Tavarezholesterol in HDL [Mass/Vol]33 mg/dLLow>40Kettering Health Hamiltonment on above:Result Comment: HDL Guidelines: <40 Undesirable 40-59 Borderline >59 DesirablePerformed By: #### LIPR #### [facility] [address] [place] [address] Respiratory Manager: NATALIO Tavarezholesterol in LDL [Mass/Vol]88 mg/dLNormal0-100 [facility] on above:Result Comment: LDL Guidelines: <100 Desirable 100-129 Near to/above Desirable 130-159 Borderline >159 Undesirable Direct (measured) LDL and calculated LDL are not interchangeable tests.Performed By: #### LIPR #### [facility] HospitalCopanion [facility] [place] [address] Respiratory Manager: NATALIO Tavarezholesterol in VLDL [Mass/Vol]31 mg/dLNormal [facility] HospitalComment on above:Performed By: #### LIPR #### [facility] HospitalCopanion [address] [place] [address] Respiratory Manager: NATALIO Tavarezholesterol.total/Cholesterol in HDL [Mass ratio]5.0 {ratio}NormalCleveland Clinic Mercy HospitalComment on above:Performed By: #### LIPR #### [facility] HospitalCopanion [address] [place] [address] Respiratory Manager: Osvaldo Santamaria MDTriglyceride [Mass/Vol]156 mg/dLHigh<150[facility] HospitalComment on above:Result Comment: Triglyceride Guidelines: <150 Desirable 150-199 Borderline 200-499 High >499 Very high Based on AHA Guidelines for fasting triglyceride, April 2012.Performed By: #### LIPR #### [facility] [employer] [address] [place] [address] Respiratory Manager: Osvaldo Santamaria MDUS GALLBLADDER RUQon [id number] GALLBLADDER RUQEXAMINATION: RIGHT UPPER QUADRANT ULTRASOUND 03/06/2024 9:58 am COMPARISON: None. HISTORY: ORDERING SYSTEM PROVIDED HISTORY: Elevated liver enzymes TECHNOLOGIST PROVIDED HISTORY: This procedure [facility] elevated liver enzymes, fam hx gallbladder disease. [...] Signed by: Hernandez Stewart MD 03/06/24 Final resultNormalLakeHealth Beachwood Medical Center 39-50-2801Krxuwtxhxna distribution width (RBC) [Ratio]12.4 %Cezgfm86.8-14.4[facility] Mercy HospitalComment on above: Performed By: #### FEBC #### [address] [address] Respiratory Manager: Osvaldo Santamaria MD #### CBC, CP #### [address] [place] [address] Respiratory Manager: Yelena Greco MDHematocrit (Bld) [Volume fraction]40.2 %Normal 36.3-47.1MSelect Medical Specialty Hospital - CantonComment on above:Performed By: #### FEBC #### [address] [address] Respiratory Manager: Osvaldo Santamaria MD #### CBC, CP #### [address] [place] [address] Respiratory Manager: Yelena Greco MDHemoglobin (Bld) [Mass/Vol]13.5 g/dLNormal 11.9-15.1MSelect Medical Specialty Hospital - CantonComment on above:Performed By: #### FEBC #### [address] [address] Respiratory Manager: Osvaldo Santamaria MD #### CBC, CP #### [address] [place] [address] Respiratory Manager: YULY ArandaCH (RBC) [Entitic mass]29.8 jiKkcwav38.2-33.5 [facility] HospitalComment on above:Performed By: #### FEBC #### [address] [address] Respiratory Manager: Osvaldo Santamaria MD #### CBC, CP #### [address] [place] [place] [address] Respiratory Manager: YULY ArandaCHC (RBC) [Mass/Vol]33.6 g/gFVytgkq58.4-34.8[facility] HospitalComment on above:Performed By: #### FEBC #### [address] [address] Respiratory Manager: Osvaldo Santamaria MD #### CBC, CP #### [address] [place] [place] [address] Respiratory Manager: YULY ArandaCV (RBC) [Entitic vol]88.7 sGZzhwks06.6-102.9 [facility] HospitalComment on above:Performed By: #### FEBC #### [address] [address] Respiratory Manager: Osvaldo Santamaria MD #### CBC, CP #### [address] [place] [address] Respiratory Manager: Yelena Greco MDNRBC Automated0.0 per 100 WBCNormal0.0[facility] Mercy HospitalComment on above:Performed By: #### FEBC #### [address] [address] Respiratory Manager: Osvaldo Santamaria MD #### CBC, CP #### [address] [place] [id number] Respiratory Manager: ROLANDO Arandalatelet mean volume (Bld) [Entitic vol]8.5 fL Normal8.1-13.5[facility] Mercy HospitalComment on above:Performed By: #### FEBC #### [address] [address] Respiratory Manager: Osvaldo Santamaria MD #### CBC, CP #### [address] [place], [place] [id number] Respiratory Manager: Richie Aranda ([facility]) [#/Vol]309 10*3/mKFttsxk174-740 [facility] HospitalComment on above:Performed By: #### FEBC #### [address] [address] Respiratory Manager: Osvaldo Santamaria MD #### CBC, CP #### [address] [place] [place] [address] Respiratory Manager: BILL Aranda ([facility]) [#/Vol]4.53 10*6/uLNormal3.95-5.11[facility] HospitalComment on above:Performed By: #### FEBC #### [address] [address] Respiratory Manager: Osvaldo Santamaria MD #### CBC, CP #### [address] [place] [place] [address] Respiratory Manager: JOSELITO Aranda ([facility]) [#/Vol]6.5 10*3/uLNormal3.5-11.3MC[facility] HospitalComment on above:Performed By: #### FEBC #### [address] [address] Respiratory Manager: Osvaldo Santamaria MD #### CBC, CP #### [address] [place] [id number] Respiratory Manager: NATALIO Arandast. mark's hospital Metabolic Profon 67-33-8164Qevkkki [Mass/Vol] 4.5 g/dLNormal3.5-5.2MC[facility] Clinic [facility] HospitalComment on above:Performed By: #### FEBC #### [address] [address] Respiratory Manager: Osvaldo Santamaria MD #### CBC, CP #### [address] [place], [place] [id number] Respiratory Manager: Yelena Greco MDAlbumin/Glob Ratio1.5Fjwfnp7.0-2.5[facility] HospitalComment on above:Performed By: #### FEBC #### [address] [address] Respiratory Manager: Osvaldo Santamaria MD #### CBC, CP #### [address] [place] [place] [address] Respiratory Manager: Giselle Aranda Phos74 U/OSlaoif36-002TihvpCleveland Clinic Mercy HospitalComment on above:Performed By: #### FEBC #### [address] [address] Respiratory Manager: Osvaldo Santamaria MD #### CBC, CP #### [address] [place] [place] [address] Respiratory Manager: AMRITA Aranda [Catalytic activity/Vol]61 U/LHigh5-33[facility] HospitalComment on above:Performed By: #### FEBC #### [address] [address] Respiratory Manager: Osvaldo Santamaria MD #### CBC, CP #### [address] [place] [place] [address] Respiratory Manager: Lindsay Aranda gap [Moles/Vol]8 mmol/LLow9-17[facility] HospitalComharbor oaks hospital on above:Performed By: #### FEBC #### [address] [address] Respiratory Manager: Osvaldo Santamaria MD #### CBC, CP #### [address] [place] [place] [address] Respiratory Manager: Yelena Greco MDAST [Catalytic activity/Vol]43 U/LHigh<32[facility] HospitalComment on above:Performed By: #### FEBC #### [address] [place] [address] Respiratory Manager: Osvaldo Santamaria MD #### CBC, CP #### [address] [place] [address] [place] [address] Respiratory Manager: Yelena Greco MDBilirubin [Mass/Vol]0.2 mg/dLLow0.3-1.2MSelect Medical Specialty Hospital - CantonComment on above:Performed By: #### FEBC #### [address] [address] Respiratory Manager: Osvaldo Santamaria MD #### CBC, CP #### [address] [place] [address] Respiratory Manager: Yelena Greco MDBUN/CRE Bqwbl26Fwxeop9-37Ldgiy [facility] Comment on above:Performed By: #### FEBC #### [address] [address] Respiratory Manager: Osvaldo Santamaria MD #### CBC, CP #### [address] [place] [place] [address] Respiratory Manager: NATALIO Arandaalcium [Mass/Vol]9.4 mg/dLNormal8.6-10.4[facility] HospitalComment on above:Performed By: #### FEBC #### [address] [address] Respiratory Manager: Osvaldo Santamaria MD #### CBC, CP #### [address] [place], [place] [address] Respiratory Manager: NATALIO Arandahloride [Moles/Vol]100 mmol/DCojbmh86-411AqfdkCleveland Clinic Mercy HospitalComment on above:Performed By: #### FEBC #### [address] [place] [address] Respiratory Manager: Osvaldo Santamaria MD #### CBC, CP #### [address] [place], [place] [address]83 Respiratory Manager: NATALIO ArandaO2 [Moles/Vol]28 mmol/HEecnux27-37XtdfuCleveland Clinic Mercy HospitalComment on above:Performed By: #### FEBC #### [facility] [employer] [address] [place] [address] Respiratory Manager: Osvaldo Santamaria MD #### CBC, CP #### [address] [place] [address]83 Respiratory Manager: NATALIO Arandareatinine [Mass/Vol]0.6 mg/dLNormal0.5-0.9[facility] HospitalComment on above:Performed By: #### FEBC #### [address] [address] Respiratory Manager: Osvaldo Santamaria MD #### CBC, CP #### [address] [place], [place] 17[address] Respiratory Manager: Yelena Greco MDGFR/1.73 sq M.predicted among non-blacks MDRD (S/P/Bld) [Vol rate/Area]mL/min/{1.73_m2}Normal>60[facility] HospitalComment on above:Result Comment: These results are [...] renal tubular secretion.Performed By: #### FEBC #### [address] [address] Respiratory Manager: Osvaldo Santamaria MD #### CBC, CP #### [address] [place], [place] 8682583 Respiratory Manager: Yelena Greco MDGlucose [Mass/Vol]91 mg/tMKtuwpx95-86ZqemaSelect Medical Specialty Hospital - CantonComment on above:Performed By: #### FEBC #### [address] [address] Respiratory Manager: Osvaldo Santamaria MD #### CBC, CP #### [address] [place], [place] 1387583 Respiratory Manager: ROLANDO Arandaotassium [Moles/Vol]4.2 mmol/LNormal3.7-5.3[facility] [place] HospitalComment on above:Performed By: #### FEBC #### [address] [address] Respiratory Manager: Osvaldo Santamaria MD #### CBC, CP #### [address] [place] [place] [address] Respiratory Manager: Yelena Greco MDProtein [Mass/Vol]7.6 g/dLNormal6.4-8.3Macmc healthcare systemy [place] HospitalComment on above:Performed By: #### FEBC #### [address] [address] Respiratory Manager: Osvaldo Santamaria MD #### CBC, CP #### [address] [place] [place] [address] Respiratory Manager: Yelena Greco MDSodium [Moles/Vol]136 mmol/CVtawra234-087Ntrbe [facility]'S Medical CenterComment on above:Performed By: #### FEBC #### [address] [place] [address] Respiratory Manager: Osvaldo Santamaria MD #### CBC, CP #### [address] [place] [place] [address] Respiratory Manager: Yelena Greco MDUrea nitrogen [Mass/Vol]12 mg/dLNormal6-20[facility] HospitalComment on above:Performed By: #### FEBC #### [address] [address] Respiratory Manager: Osvaldo Santamaria MD #### CBC, CP #### [address] [place] [place] [address] Respiratory Manager: Yelena Greco MDIron Binding Cap.on 02-16-2024% Fe Pddjpwzdqz36 % Qdvnnf79-93Hbbsy [facility]'S Medical CenterComment on above:Performed By: #### FEBC #### [address] [address] Respiratory Manager: Osvaldo Santamaria MD #### CBC, CP #### [address] [place] [address]83 Respiratory Manager: Yelena Greco MDIron [Mass/Vol]92 ug/gYJdspem87-964FvjkcCleveland Clinic Mercy HospitalComment on above:Performed By: #### FEBC #### [address] [address] Respiratory Manager: Osvaldo Santamaria MD #### CBC, CP #### [address] [place] [place] [address] Respiratory Manager: Yelena Greco MDTokarlos Fe Binding Cyk984 ug/iEOexhki901-000QfrynCleveland Clinic Mercy HospitalComment on above:Performed By: #### FEBC #### [address] [address] Respiratory Manager: Osvaldo Santamaria MD #### CBC, CP #### [facility] [address] [place], [place] [id number] Respiratory Manager: Yelena Greco MDUnbound Fe Bind Vsq845 ug/rKXjwjpb138-655OpurlCleveland Clinic Mercy HospitalComment on above:Performed By: #### FEBC #### [address] [id number] Respiratory Manager: Osvaldo Santamaria MD #### CBC, CP #### [facility] [address] [place], [place] [address] Respiratory Manager: Yelena Greco MDLipid Profileon 73-83-9296Epdduvxdxln [Mass/Vol] 245 mg/dLHigh0-199[facility] HospitalComment on above:Result Comment: Cholesterol Guidelines: <200 Desirable 200-240 Borderline >240 UndesirablePerformed By: #### LIPR #### [address] [address] Respiratory Manager: Osvaldo Santamaria, MDCholesterol in HDL [Mass/Vol]34 mg/dLLow>40[facility] HospitalComment on above:Result Comment: HDL Guidelines: <40 Undesirable 40-59 Borderline >59 DesirablePerformed By: #### LIPR #### [facility] [employer] [address] [place] [address] Respiratory Manager: Osvaldo Santamaria MDCholesterol in LDL [Mass/Vol]159 mg/dLHigh0-100 [facility] HospitalComment on above:Result Comment: LDL Guidelines: <100 Desirable 100-129 Near to/above Desirable 130-159 Borderline >159 Undesirable Direct (measured) LDL and calculated LDL are not interchangeable tests.Performed By: #### LIPR #### [facility] [address] [place] [address] Respiratory Manager: Osvaldo Santamaria, MDCholesterol in VLDL [Mass/Vol]52 mg/dLNormal [facility] HospitalComment on above:Performed By: #### LIPR #### [facility] [address] [place] [address] Respiratory Manager: NATALIO Tavarezholesterol.total/Cholesterol in HDL [Mass ratio]7.0 {ratio}NormalCleveland Clinic Mercy HospitalComment on above:Performed By: #### LIPR #### [facility] [address] [place], [place] 3614408 Respiratory Manager: Osvaldo Santamaria MDTriglyceride [Mass/Vol]259 mg/dLHigh<150[facility] HospitalComment on above:Result Comment: Triglyceride Guidelines: <150 Desirable 150-199 Borderline 200-499 High >499 Very high Based on AHA Guidelines for fasting triglyceride, April 2012.Performed By: #### LIPR #### [facility] [address] [place] [address] Respiratory Manager: Osvaldo Santamaria MDOffice Visiton 88-25-4848Nrzdjl-up visit [id number] Vinny Downey 2000 F Date Provider Department Center 07/11/2023 RAJENDRA GUNN SAMSON [facility] Family History Problem Relation Age of Onset Anemia Mother Supraventricular tachycardia Father Hyperlipidemia Father Diabetes Sister Family Status - Relation Status Age at Mother Father Sister Level of Service:33278 PA OFFICE/OUTPATIENT NEW MODERATE MDM 45 [facility] CampusOffice Visiton 50-34-5032Nemgnv-up visit [id number] Vinny Downey 2000 F Date Provider Department Center 03/20/2023 ISRAEL ULLOA [facility] Family History Problem Relation Age of Onset Anemia Mother Supraventricular tachycardia Father Hyperlipidemia Father Diabetes Sister Family Status - Relation Status Age at Mother Father Sister Level of Service:97130 PA OFFICE/OUTPATIENT NEW LOW MDM 30-44 MINUTESGreene [facility] HospitalUS PREG BIOPHY W NON STRESSon [id number] PREG BIOPHY W NON STRESSEXAMINATION: US PREG [...] Electronically authenticated by: YELENA CARLOS Date: 2022-12-20 07:03[facility] [place] PREG PLACENTAon [id number] PREG PLACENTAEXAMINATION: US PREG PLACENTA HISTORY: Left [...] authenticated by: LUIS ALFREDO GRANT Date: 2022-12-12 14:56[facility] [place] PREG BIOPHY W NON STRESSon [id number] PREG BIOPHY W NON STRESSEXAMINATION: US PREG [...] authenticated by: LUIS ALFREDO GRANT Date: 2022-12-11 04:08[facility] [place] PREG GROWTHon [id number] PREG GROWTHEXAMINATION: US PREG GROWTH HISTORY: High weight COMPARISON: [...] authenticated by: LUIS ALFREDO GRANT Date: 2022-12-11 04:06[facility] SystemGTT 3 HR PREGon 96-49-4707Zsqqqjk [Mass/Vol]98 mg/dLNormal 74-106[facility] Orrville HospitalComment on above:Performed By: #### GTT3P #### [facility] [address] [place] [address] Dr. Emilee SpringerGlucose [Mass/Vol]170 mg/dLOhio State Health SystemComment on above:Performed By: #### GTT3P #### [facility] [address] [place] [address] Dr. Emilee SpringerGlucose [Mass/Vol]201 mg/dLOhio State Health SystemComharbor oaks hospital on above:Performed By: #### GTT3P #### [facility] [address] [place] [address] Dr. Emilee SpringerGlucose [Mass/Vol]115 mg/dLOhio State Health SystemComment on above:Performed By: #### GTT3P #### [facility] [address] [place] [address] Dr. Emilee Mcconnell PREG INCOMPLETE ANATOMYon [id number] PREG INCOMPLETE ANATOMY EXAM: US PREG INCOMPLETE ANATOMY HISTORY: screening COMPARISON: 09/10/2022 TECHNIQUE: Transabdominal FINDINGS: position: Transverse, head to the maternal right Heart rate: 157 bpm Normal observed anatomy: Nose/lips, four-chamber heart, left ventricular outflow tract, right ventricular outflow tract, spine IMPRESSION: Normal observed anatomy Electronically authenticated by: YELENA CARLOS Date: 2022-10-16 08:44NormalThe [facility] AUTO DIFFon 05-27-1083QGMJ #0.0 103/ulNormal0.0-0.1The Wilson HealthComment on above:Performed By: #### CBC #### [facility] [address] [place] [address] Dr. Emilee SpringerBasophils/100 WBC (Bld)0.2 %Normal0.2-2.0[facility] Comment on above:Performed By: #### CBC #### [facility] [address] [place] [address] Dr. Emilee Weldon #0.1 103/ulNormal0.0-0.7The [facility] HealthComment on above: Performed By: #### CBC #### [facility] [address] [place] [address] Dr. Emilee Cintronosinophils/100 WBC (Bld)0.8 %Critically low0.9-7.0The Wilson HealthComment on above:Performed By: #### CBC #### [facility] [address] [place] [address] Dr. Emilee Cintronrythrocyte distribution width (RBC) [Ratio]12.5 %Ttysra92.0-15.0 [facility] Orrville HospitalComment on above:Performed By: #### CBC #### [facility] [address] [place] [address] Dr. Emilee SpringerHematocrit (Bld) [Volume fraction]29.8 %Critically low36.0-48.0 The Wilson HealthComment on above:Performed By: #### CBC #### [facility] [address] [place] [address] Dr. Emilee SpringerHemoglobin (Bld) [Mass/Vol]10.0 g/dLCritically low12.0-16.0The Wilson HealthComment on above:Performed By: #### CBC #### [facility] [address] [place] [address] Dr. Emilee Van #0.05 10e3/ulCritically high0.00-0.03[facility] Comment on above:Performed By: #### CBC #### [facility] [address] [place] [address] Dr. Emilee Van %0.5 %Normal0.0-0.5The [facility] HealthComment on above: Performed By: #### CBC #### [facility] [address] [place] [address] Dr. Emilee Renae #1.6 103/ulNormal1.2-3.8The [facility]i HospitalComment on above:Performed By: #### CBC #### [facility] [address] [place] [address] Dr. Emilee Danielhocytes/100 WBC (Bld)15.3 %Critically low20.5-60.0The [facility] HealthComment on above:Performed By: #### CBC #### [facility] [address] [place] [address] Dr. Emilee Esquivel DIFF REQNONormalThe Wilson HealthComment on above: Performed By: #### CBC #### [facility] [address] [place] [address] Dr. Emilee Hannah (RBC) [Entitic mass]30.2 ipAkhltf65.7-34.0The [facility] HealthComment on above:Performed By: #### CBC #### [facility] [address] [place] [address] Dr. Emilee Guevara (RBC) [Mass/Vol]33.6 g/pCTwzgnh30.9-35.2The [facility] HealthComment on above:Performed By: #### CBC #### [facility] [address] [place] [address] Dr. Emilee Ornelas (RBC) [Entitic vol]90.0 oNUdrsfn02.0-99.0The [facility] HealthComment on above:Performed By: #### CBC #### [facility] [address] [place] [address] Dr. Emilee Banegas #0.6 103/ulNormal0.3-0.8The [facility] HealthComment on above:Performed By: #### CBC #### [facility] [address] [place] [address] Dr. Emilee Hightowerocytes/100 WBC (Bld)5.8 %Normal1.7-12.0[facility] Comment on above:Performed By: #### CBC #### [facility] [address] [place] [address] Dr. Emilee Fernandez #8.2 103/ulCritically high1.4-6.5[facility] Comment on above:Performed By: #### CBC #### [facility] [address] [place] [address] Dr. Emilee Meeksutrophils/100 WBC (Bld)77.4 %Critically high43.0-75.0The [facility] HealthComment on above:Performed By: #### CBC #### [facility] [address] [place] [address] Dr. Emilee Olmedolet mean volume (Bld) [Entitic vol]8.5 fLCritically low 9.5-13.5The [facility] HealthComment on above:Performed By: #### CBC #### [facility] [address] [place] [address] Dr. Emilee SpringerPLT347 103/tbWiuidv655-087Evd Wilson HealthComment on above: Performed By: #### CBC #### [facility] [address] [place] [address] Dr. Emilee SpringerRBC3.31 106/ulCritically low4.20-5.40The [facility] HealthComment on above:Performed By: #### CBC #### [facility] [address] [place] [address] Dr. Emilee SpringerWBC10.6 103/ulNormal4.0-11.0The [facility] HealthComment on above:Performed By: #### CBC #### [facility] [address] [place] [address] Dr. Emilee BrionesOSE - 1HRon 34-29-4267Domlucg [Mass/Vol]176 mg/dLCritically jvza20-724JehAultman Orrville HospitalComment on above:Performed By: #### GLU1HR #### [facility] [address] [address] [address] Emilee SpringerCHLAMYDIA/GONOCOCCUS ANISA (SWAB/URINE/PAPon 88-79-3150Gtpjrgwrd trachomatis, NAANegativeNormalNegativeThe Wilson HealthComment on above: Performed By: #### CBC #### [facility] [address] [address] [address] Emilee SpringerNeisseria gonorrhoeae, NAANegativeNormalNegativeAultman Orrville HospitalComment on above:Performed By: #### CBC #### [facility] [address] [place] [address] Dr. Emilee SpringerVAGINITIS/VAGINOSIS DNA PROBEon 60-75-6165Ysjwxdz speciesNegative NormalNegativeThe Wilson HealthComment on above:Performed By: #### CBC #### [facility] [address] [address] [address] Emilee SpringerGardnerella vaginalisNegativeNormalNegativeAultman Orrville Hospital Comment on above:Performed By: #### CBC #### [facility] [address] [place] [address] Dr. Emilee SpringerTrichomonas vaginalisNegativermalNegativeAultman Orrville Hospital Comment on above:Performed By: #### CBC #### [facility] [address] [place] [address] Dr. Emilee Mcconnell PREG ANATOMY SINGLEon [id number] PREG ANATOMY SINGLE EXAMINATION: US PREG ANATOMY [...] authenticated by: LUIS ALFREDO GRANT Date: 2022-09-13 16:57[facility] SystemAFP MATERNAL FOR SPINA BIFIDAon 95-65-1084WOF MoM0.42[facility] SystemComment on above:Performed By: #### AFPMAT #### [facility] [address] [address] [address] Emilee Yoder Value16.7 ng/mLNKettering Health Greene MemorialComment on above: Performed By: #### AFPMAT #### [facility] [address] [address] [address] Emilee Yoder, Serum for Spina BifidaReportOhio State Health System Comment on above:Performed By: #### AFPMAT #### [facility] [address] [address] [address] Emilee BaTogus VA Medical CenterComment on above:Result Comment: Pam Machado, Ph.D., [facility] Director . References: Available Upon Request. . Multiples Of Median Cutoffs For AFP Elevations Berkowitz 2.5 Black 2.8 IDD 2.0 Twins 4.5 Abbreviation Definitions IDD - Insulin Dep Diabetes OSBR - Open Spina Bifida Risk . For further inquiries contact [employer] [facility] at [phone]. . This test was developed and its performance characteristics determined by [employer]. It has not been cleared or approved by the Food and Drug Administration.Performed By: #### AFPMAT #### [facility] [address] [place] [address] Dr. Emilee Barrow Age Collection Date18.6 weeksOhio [facility] System Comment on above:Performed By: #### AFPMAT #### [facility] [address] [place] [address] Dr. Emilee Barrowat, Age Based [facility] HospitalComment on above:Result Comment: 01/26/2023 Recalculations are not recommended when gestational dating by LMP and ultrasound are within 10 days.Performed By: #### AFPMAT #### [facility] [address] [place] [address] Dr. Emilee Luis Dep DiabetesTogus VA Medical CenterComment on above:Result Comment: Not provided. .Performed By: #### AFPMAT #### [facility] [address] [place] [address] Dr. Emilee SpringerInterpretationTogus VA Medical CenterComment on above: Result Comment: Interpretation: Screen Negative [...] Customer Services to discuss available options. The [employer] [employer] recommends amniocentesis be offered to women age 35 and older.Performed By: #### AFPMAT #### [facility] [address] [place] [address] Dr. Emilee SpringerMaternakrista Age at EDD22.3 yrOhio State Health SystemComment on above:Performed By: #### AFPMAT #### [facility] [address] [place] [address] Dr. Emilee Porras [facility] on above:Result Comment: Not provided. .Performed By: #### AFPMAT #### [facility] [address] [place] [address] Dr. Emiele CanoBR Risk 1 [id number] Medical [facility] [place] on above: Performed By: #### AFPMAT #### [facility] [address] [place] [address] Dr. Emilee Galo.NormalThe [facility] on above:Performed By: #### AFPMAT #### [facility] [address] [place] [address] Dr. Emilee FinnFisher-Titus Medical Center on above:Result Comment: Not provided. .Performed By: #### AFPMAT #### [facility] [address] [place] [address] Dr. Emilee Arvizu Results:NegativeNoSelect Medical [facility] [place] on above: Performed By: #### AFPMAT #### [facility] [address] [place] [address] Dr. Emilee Aguileraa antibody, IgGon 86-24-1222Gjnpgjc virus IgG Ql (S)314.5 IU/mLTwin County Regional Healthcare on above: REFERENCE RANGE: <5.0 NON-REACTIVE (non-immune) 5.0 TO 9.9 EQUIVOCAL >=10.0 REACTIVE (immune) [facility] B SURFACE ANTIGEN SCREENon 78-07-4008UVmGj Screen NegativeNormalNegativeCrystal Clinic [facility] on above:Performed By: #### HBSANS #### [facility] [address] [place] [address] Dr. Emilee WhalenTIS C VIRUS AB W/ REFLEX QUANTon 97-62-0255MNZ AB<0.1Normal 0.0-0.9[facility] on above:Performed By: #### HCVPCRR #### [facility] [address] [place] [address] Dr. Emilee SpringerInterpretation:CommentNormalThe [facility] on above:Result Comment: Negative Not infected with HCV, unless recent infection is suspected or other evidence exists to indicate HCV infection.Performed By: #### HCVPCRR #### [facility] [address] [place] [address] Dr. Emilee SpringerHIV 1 AND 2 WITH REFLEXon 09-41-5082AAN Screen 4th Generation wRfxNon-ReactiveNormalNon ReactiveThe [facility] on above:Result Comment: HIV Negative HIV-1/HIV-2 antibodies and HIV-1 p24 antigen were NOT detected. There is no laboratory evidence of HIV infection.Performed By: #### CBC #### [facility] [address] [place] [address] Dr. Emilee SpringerRPR QUANTon 23-13-4577Yrbwz Plasma Reagin, QuantNon-Reactive NormalNonRea<1:1[facility] on above:Result Comment: Please Note: This test does not meet current guidelines for screening and diagnosis of syphilis. This test is intended for following treatment response in patients being treated for syphilis infection. To screen for syphilis infection, a reflex cascade that includes both RPR and a treponema-specific assay should be utilized, such as Treponema pallidum (Syphilis) Screening Green (626254) or Rapid Plasma Reagin (RPR) Test With Reflex to Quantitative RPR and Confirmatory Treponema pallidum Antibodies (215093).Performed By: #### CBC #### [facility] [address] [place] [address] Dr. Emilee BustillosBELLA AB IGGon 12-41-0453Jolsciq Antibodies, IgG5.03 index NormalImmune >0.99[facility] on above:Result Comment: Non- immune <0.90 Equivocal 0.90 - 0.99 Immune >0.99Performed By: #### RUBIGG #### [facility] [address] [place] [address] Dr. Emilee SpringerCBC AUTO DIFFon 66-50-5060PQWT #0.0 103/ulNormal0.0-0.1The [facility] HealthComment on above:Performed By: #### GLU1HR #### [facility] [address] [place] [address] Dr. Emilee SpringerBasophils/100 WBC (Bld)0.2 %Normal0.2-2.0[facility] Comment on above:Performed By: #### GLU1HR #### [facility] [address] [place] [address] Dr. Emilee Weldon #0.1 103/ulNormal0.0-0.7The [facility] HealthComment on above: Performed By: #### GLU1HR #### [facility] [address] [place] [address] Dr. Emilee Cintronosinophils/100 WBC (Bld)0.9 %Normal0.9-7.0[facility] Comment on above:Performed By: #### GLU1HR #### [facility] [address] [place] [address] Dr. Emilee Cintronrythrocyte distribution width (RBC) [Ratio]11.9 %Hnkwfx78.0-15.0 The [facility] HealthComment on above:Performed By: #### GLU1HR #### [facility] [address] [place] [address] Dr. Emilee SpringerHematocrit (Bld) [Volume fraction]32.9 %Critically low36.0-48.0 The [facility] HealthComment on above:Performed By: #### GLU1HR #### [facility] [address] [place] [address] Dr. Emilee SpringerHemoglobin (Bld) [Mass/Vol]11.6 g/dLCritically low12.0-16.0The [facility] HealthComment on above:Performed By: #### GLU1HR #### [facility] [address] [place] [address] Dr. Emilee Van #0.03 10e3/ulNormal0.00-0.03The [facility] HealthComment on above:Performed By: #### GLU1HR #### [facility] [address] [address] [address] Emilee Van %0.3 %Normal0.0-0.5The [facility] HealthComment on above: Performed By: #### GLU1HR #### [facility] [address] [place] [address] Dr. Emilee Renae #2.1 103/ulNormal1.2-3.8The [facility] HealthComment on above:Performed By: #### GLU1HR #### [facility] [address] [place] [address] Dr. Emilee Danielhocytes/100 WBC (Bld)20.2 %Critically low20.5-60.0The [facility] HealthComment on above:Performed By: #### GLU1HR #### [facility] [address] [place] [address] Dr. Emilee PenningtonUAL DIFF REQNONormalThe Wilson HealthComment on above: Performed By: #### GLU1HR #### [facility] [address] [place] [address] Dr. Emilee Guevara (RBC) [Entitic mass]31.4 svAwumff35.7-34.0The Wilson HealthComment on above:Performed By: #### GLU1HR #### [facility] [address] [place] [address] Dr. Emilee Guevara (RBC) [Mass/Vol]35.3 g/dLCritically high29.9-35.2The [facility] HealthComment on above:Performed By: #### GLU1HR #### [facility] [address] [place] [address] Dr. Emilee Guevara (RBC) [Entitic vol]89.2 hHWyqsmw41.0-99.0The [facility] HealthComment on above:Performed By: #### GLU1HR #### [facility] [address] [place] [address] Dr. Emilee Banegas #0.7 103/ulNormal0.3-0.8The [facility] HealthComment on above:Performed By: #### GLU1HR #### [facility] [address] [place] [address] Dr. Emilee Hightowerocytes/100 WBC (Bld)7.0 %Normal1.7-12.0[facility] Comment on above:Performed By: #### GLU1HR #### [facility] [address] [place] [address] Dr. Emilee Fernandez #7.5 103/ulCritically high1.4-6.5[facility] Comment on above:Performed By: #### GLU1HR #### [facility] [address] [place] [address] Dr. Emilee Meeksutrophils/100 WBC (Bld)71.4 %Zltjug37.0-75.0The [facility] HealthComment on above:Performed By: #### GLU1HR #### [facility] [address] [place] [address] Dr. Emilee Olmedolet mean volume (Bld) [Entitic vol]9.1 fLCritically low 9.5-13.5The [facility] HealthComment on above:Performed By: #### GLU1HR #### [facility] [address] [place] [address] Dr. Emilee SpringerPLT311 103/xoHjnvzp853-079Opt Wilson HealthComment on above: Performed By: #### GLU1HR #### [facility] [address] [place] [address] Dr. Emilee SpringerRBC3.69 106/ulCritically low4.20-5.40The [facility] HealthComment on above:Performed By: #### GLU1HR #### [facility] [address] [place] [address] Dr. Emilee SpringerWBC10.5 103/ulNormal4.0-11.0The [facility] HealthComment on above:Performed By: #### GLU1HR #### [facility] [address] [place] [address] Dr. Emilee Deluna URINEon 22-02-2137ATNFEGZ URINECulture Observations: LIGHT GROWTH OF MIXED GENITAL BREN. NO POTENTIAL PATHOGENS SEEN.NormalAultman Orrville HospitalComment on above:Performed By: #### GLU1HR #### [facility] [address] [place] [address] Dr. Emilee SpringerGLYCOHEMOGLOBIN A1Con 85-40-4847JRB RECOMMENDATIONSEE BELOWNormal The Wilson HealthComment on above:Result Comment: ADA RECOMMENDED LIMIT 4.0 - 6.0 ADA THERAPEUTIC TARGET < 7.0 ACTION SUGGESTED > 7.0Performed By: #### A1C #### [facility] [address] [place] [address] Dr. Emilee SpringerGlucose [Mass/Vol]108 mg/dLOhio State Health SystemComment on above:Performed By: #### A1C #### [facility] [address] [place] [address] Dr. Emilee SpringerHbA1c (Bld) [Mass fraction]5.4 %Normal4.5-6.2The [facility] HealthComment on above:Performed By: #### A1C #### [facility] [address] [place] [address] Dr. Emilee Alonzo BOX TEST PT SEND OUTon 72-87-1502ADNJ TO REF LAB07/04/2022 NormalAultman Orrville HospitalComment on above:Performed By: #### NBOX #### [facility] [address] [place] [address] Dr. Emilee SprnigerTYPE AND SCREENon 93-33-8108KUWX AND SCREENNegativeNoGood Samaritan HospitalComment on above:Performed By: #### GLU1HR #### [facility] [address] [place] [address] Dr. Emilee SpringerUS PREG TVon 10-17-2368OK PREG TVEXAMINATION: US PREG TV HISTORY: test [...] Electronically authenticated by: YELENA CARLOS Date: 2022-06-23 17:00[facility] State Health SystemHCG, Quantitative, Pregnancyon 57-11-8787vRC Rpmgd57578FpxzWXKQ [facility] CENTERComhar[facility] hospital on above: Non-preg premeno <=5 Postmeno <=8 Male <=3 If HCG results do not concur with clinical observations, additional testing to confirm results is recommended. Interpretation and review of laboratory resultsAbnormalLIFEPOINT HOSPITALS ACOG PANEL 2: 21 to 29on 04-24-2022..NormalAultman Orrville HospitalComharbor oaks hospital on above:Performed By: #### [id number] #### [facility] [address] [place] [address] Dr. Emilee Black Gdln ACOG Tkrqjmc63-16CotpstPqdGood Samaritan HospitalComment on above:Performed By: #### [id number] #### [facility] [address] [place] [address] Dr. Emilee SpringerDIAGNOSIS:CommentNoSelect [facility] [place] on above: Result Comment: NEGATIVE FOR INTRAEPITHELIAL LESION OR MALIGNANCY. CELLULAR CHANGES ASSOCIATED WITH INFLAMMATION ARE PRESENT.Performed By: #### [id number] #### [facility] [address] [place] [address] Dr. Emilee SpringerMethodology:CommentNormThe [facility] on above: Result Comment: This liquid based ThinPrep(R) pap test was screened with the use of an image guided system.Performed By: #### [id number] #### [facility] [address] [place] [address] Dr. Emilee SpringerNote:CommentOhioHealth Arthur [facility] on above:Result Comment: The Pap smear is a screening test designed to aid in the detection of premalignant and malignant conditions of the uterine cervix. It is not a diagnostic procedure and should not be used as the sole means of detecting cervical cancer. Both false-positive and false-negative reports do occur. .Performed By: #### [id number] #### [facility] [address] [place] [address] Dr. Emilee SpringerPerformed by:CommentOhioHealth Arthur G.[facility], Cancer Center on above: Result Comment: Mary Lou Adams, CytotechnologistPerformed By: #### [id number] #### [facility] [address] [place] [address] Dr. Emilee SpringerReflex Criteria:CommentOhioHealth Arthur [facility], [facility] on above:Result Comment: The HPV DNA reflex criteria were not met with this specimen result therefore, no HPV testing was performed. .Performed By: #### [id number] #### [facility] [address] [place] [address] Dr. Emilee SpringerSpecimen adequacy:CommentOhioHealth Arthur [facility] on above:Result Comment: Satisfactory for evaluation. Endocervical and/or squamous metaplastic cells (endocervical component) are present.Performed By: #### [id number] #### [facility] [address] [place] [address] Dr. Emilee SpringerHCG, Quantitative, Pregnancyon 33-02-6255vLM Hfqzs93Ydmv<5 IU/L [facility] on above: Non-preg premeno <=5 Postmeno <=8 Male <=3 If HCG results do not concur with clinical observations, additional testing to confirm results is recommended. Elevated results not associated with may be found in patients with other diseases such as tumors of the germ cells (testis, ovaries, etc.), bladder, pancreas, stomach, lungs, and liver. Interpretation and review of laboratory resultsAbnoMayo Clinic Health System– [facility] RENAL COMPLETEOrdered By: Lorena Ricks on 65-68-4342Fqmbcybrmorz ultrasound of the kidneys and urinary bladder.[facility] [employer] Work Phone: eXAMINATION: RETROPERITONEAL ULTRASOUND OF THE KIDNEYS AND URINARY BLADDER 11/25/2020 COMPARISON: None HISTORY: ORDERING SYSTEM PROVIDED HISTORY: Frequent UTI TECHNOLOGIST PROVIDED HISTORY: This procedure can be scheduled via [employer]. Access your [employer] account by visiting [facility]. FINDINGS: Kidneys: The right kidney measures 11.1 cm in length and the left kidney measures 11.6 cm in length. Kidneys demonstrate normal cortical echogenicity. No evidence of hydronephrosis or intrarenal stones. Bladder: Unremarkable appearance of the bladder. No significant post void residual.[employer] Phone: edi, pn Incoming Radiant Results From Alerts/[employer] - 11/25/2020 3:59 PM EDT EXAMINATION: RETROPERITONEAL ULTRASOUND OF THE KIDNEYS AND URINARY BLADDER 11/25/2020 COMPARISON: None HISTORY: ORDERING SYSTEM PROVIDED HISTORY: Frequent UTI TECHNOLOGIST PROVIDED HISTORY: This procedure can be scheduled via [employer]. Access your [employer] account by visiting [facility]. FINDINGS: Kidneys: The right kidney measures 11.1 cm in length and the left kidney measures 11.6 cm in length. Kidneys demonstrate normal cortical echogenicity. No evidence of hydronephrosis or intrarenal stones. Bladder: Unremarkable appearance of the bladder. No significant post void residual. IMPRESSION: Unremarkable ultrasound of the kidneys and urinary bladder. [employer] Phone: Formson 78-55-4875Pabha [id number]#1.00CD:127NoSuburban Community Hospital & Brentwood HospitalAmbulatory Clinical Summaryon 02-60-8898Aimgnconbl Clinical Summary {19-zp-gf-rg-mf-65-87-85-f1-6f-o3-48-5a-16-ce-86}CD:[id number] Community Hospital & Brentwood HospitalGeneral Surgery Office/Clinic Noteon 02-46-3648Ssxaoqc Surgery Office/Clinic NoteChief Complaint post operative follow up HPI Staff 8 day post operative follow up post lap appendectomy completed while in-patient at [facility]. Doing well. Minimal discomfort. Taking Ibuprofen 400mg [...] available Patient Education Exercise to Lose Weight, Zohp-sz-Uzom Problem List/Past Medical History Ongoing Acute appendicitis [...] Use:., 10/13/2020 Family History Family history is negativeNoSuburban Community Hospital & Brentwood HospitalComment on above: Result Comment: Electronically Signed By: LATANYA MCKENNA, Sushant Simpson.nani\Date and Time Signed: 10/13/20 13:39 EDTPatient Educationon 58-24-8145Ycyoume Education Exercise to Lose Weight Exercise and [...] Document Reviewed: 08/12/2011 ExitCare? Patient Information ?2013 [employer] Medical CenterProvider Letter FTon 02-52-4318Dafjnriv Letter [facility] October 13, 2020 VINNY VERMA [address] [place] [address] VINNY VERMA 2000 To Whom It May Concern, Please excuse above patient from work 10/14/20. Sincerely, Dr. Sushant Lott MD General SurgeryNoSuburban Community Hospital & Brentwood HospitalPathology Noteon 10-08-2020 Pathology [id number]#1.00CD:[address] [place], [place] [address]Facesheeton 88-33-9925Mowkjganj [id number]#1.00CD:[address] [place], [place] [address]Operative Reporton 04-70-4399Snvxnhgmi Report [id number]:[address] [place], [place] [address]HIV Screenon 49-97-0634RNP Ag/AbNONREACTIVENONREACTIVEMcKitrick Hospital, [place] Comment on above:No laboratory evidence of HIV infection. If acute HIV infection is suspected, consider testing for HIV-1 RNA. Basic Metabolic Panelon 55-19-1966Kfssb gap [Moles/Vol]11 mmol/L9 - 17 mmol/L [facility], KYBun/Cre Pscqu06QluljMcKitrick Hospital, KYCalcium [Mass/Vol]9.3 mg/dL8.6 - 10.4 mg/dLMcKitrick Hospital, KYChloride [Moles/Vol]103 mmol/L98 - 107 mmol/LMercy Health- [place], KYCO2 [Moles/Vol]23 mmol/L20 - 31 mmol/LMMercy Health [address]. [facility]- [place], KYCreatinine [Mass/Vol]0.57 mg/dL0.5 - 0.9 mg/dLMcKitrick Hospital, KYGFR >60>60 mL/minMcKitrick Hospital, KYGFR Non->60>60 mL/minMcKitrick Hospital, KYGlucose [Mass/Vol]88 mg/dL70 - 99 mg/dLMcKitrick Hospital, KYPotassium [Moles/Vol]4.6 mmol/L3.7 - 5.3 mmol/LMLancaster Municipal Hospital [place], KYSodium [Moles/Vol]137 mmol/L135 - 144 mmol/[facility] [place], KYUrea nitrogen [Mass/Vol]11 mg/dL6 - 20 mg/dLMcKitrick Hospital, WVCBCon 98-33-9447Amxcqaetpxc distribution width (RBC) [Ratio]11.7 %Low11.8 - 14.4 %[facility], [place] Hematocrit (Bld) [Volume fraction]36.4 %36.3 - 47.1 %[facility], [place] Hemoglobin (Bld) [Mass/Vol]12.2 g/dL11.9 - 15.1 g/dLMcKitrick Hospital, [place] Interpretation and review of laboratory resultsAbnormalMcKitrick Hospital, WVMCH (RBC) [Entitic mass]31.4 pg25.2 - 33.5 pgMcKitrick Hospital, WVMCHC (RBC) [Mass/Vol]33.5 g/dL28.4 - 34.8 g/dLMcKitrick Hospital, WVMCV (RBC) [Entitic vol] 93.8 fL82.6 - 102.9 fLMcKitrick Hospital, WVPlatelet mean volume (Bld) [Entitic vol]9.2 fL8.1 - 13.5 fLMcKitrick Hospital, WVPlatelets (Bld) [#/Vol]307 10*3/uL [facility], WVRBC (Bld) [#/Vol]3.88 10*6/uLLow3.95 - 5.11 m/uLEstcourt Station, KYWBC (Bld) [#/Vol]7.2 10*3/uLEstcourt [place], KYWBC (Bld) [#/Vol] 0.0 10*3/uL0.0 per 100 WBCEstcourt Station, KYMetabolic Panelon 05-04-2020 GFR/1.73 sq M predicted among non-blacks MDRD (S/P/Bld) [Vol rate/Area][place], KYComment on above:Stage 1: Some kidney damage [...] body mass. Additional eGFR calculator available at: http://www.Squla/multiple_crcl_2012.htm [facility] 44-93-1090HGZ Qn2.22 m[IU]/LMMay[place], [place] Vital Signs Date TimeVital SignValuePerforming GotoczithGakpakzd69-64-2392 15:05-0400Body mass index (BMI) [Ratio]37.47 kg/r3T[employer]x [employer] Work Phone: BioWizardUniversity HospitalVorozxbsvw61-74-8679 15:05-0400Body xmmqoy384.29 kgCorey LawNYCareerElite Work Phone: BioWizardUniversity HospitalIpgflhhxic23-03-7872 15:05-0400Diastolic blood ihxfdkac99 mm[Hg]Mukul [employer] Work Phone: BioWizardUniversity HospitalIovhmxwyuq92-24-9832 15:05-0400Systolic blood ehbnohwo868 mm[Hg]Mukul [employer] Work Phone: noUniversity HospitalAnphfapbht59-66-3407 15:11-0400Body mass index (BMI) [Ratio]36.7 kg/m8DbsdlktcCeasar Li [employer] Work Phone: [facility] HospitalVcvjkuobqw75-92-0926 15:11-0400Body hufbrx293.15 kgDanieldaly Millreerly [employer]PER Work Phone: [facility] HospitalNwhhqzqhkt49-21-6395 15:11-0400Diastolic blood uwhowgeb47 mm[Hg]Ceasar Millererly [employer]ER HELPER Work Phone: [facility] HospitalTxjrzjmtpq11-79-2027 15:11-0400Systolic blood syyeidxf514 mm[Hg]Ceasar Millererly [employer]PER Work Phone: [phone] [place], [place] [address]Lawsvhcnbm22-20-1124 15:50-0400Body mass index (BMI) [Ratio]36.64 kg/m2Amy Oralia PA Work Phone: [phone]-[facility]'s HospitalVkcfyrpnfe60-24-5192 15:50-0400Body umvalm928.97 kgAmy Beaverdam PA Work Phone: [phone]-[facility] HospitalTvybonkboy50-20-3114 15:50-0400Diastolic blood htrgoqtb41 mm[Hg]Regina Oralia PA Work Phone: [phone] [place], [place] [address]Lsqbwmcdro34-44-2784 15:50-0400Systolic blood bvfqtswu341 mm[Hg]Regina Oralia PA Work Phone: [phone] [place], [place] [address]Mcwqxdexhb18-23-9731 15:44-0400Body mass index (BMI) [Ratio]36.61 kg/m2Amy Oralia PA Work Phone: [phone]-[facility] HospitalQslxxvumzg24-27-8776 15:44-0400Body .88 kgAmy Beaverdam PA Work Phone: [phone] [place], [place] [address]Ethjicyycl61-70-7813 15:44-0400Diastolic blood dlrgxres94 mm[Hg]Regina Beaverdam PA Work Phone: [phone] [place], [place] [address]Upoxbfujqo23-28-1442 15:44-0400Systolic blood slrssidd962 mm[Hg]Regina Oralia PA Work Phone: [facility] HospitalJmjghwagkd18-06-9191 16:08-0400Body mass index (BMI) [Ratio]36.12 kg/s8IbofiMukul Foy DO Work Phone: [phone] [place], [place] [address]Obngbbkpog51-83-7265 16:08-0400Body epyshv787.52 kgCorey Law DO Work Phone: [phone])[facility] [place], [place] [address]Yvevhhymys96-26-4895 16:08-0400Diastolic blood wqamjszi48 mm[Hg]Mukul Law DO Work Phone: [phone])[facility] [place], [place] [address]Dxzawlkhta00-30-3174 16:08-0400Systolic blood xoeobcoz029 mm[Hg]Mukul Law DO Work Phone: [phone] [place], [place] [address]8-06-2025 15:58-0400Body mass index (BMI) [Ratio]35.96 kg/q8Ehdnj Law DO Work Phone: [phone])[facility] [place], [place] [address]Sxhlivaltt78-74-5609 15:58-0400Body zkzyxq143.06 kgCorey Law DO Work Phone: [phone] [place], [place] [address]Lwebkkclkf27-01-5474 15:58-0400Diastolic blood iiajqafz16 mm[Hg]Mukul Law DO Work Phone: [phone] [place], [place] [address]8-06-2025 15:58-0400Systolic blood ggarwfas350 mm[Hg]Mukul Law DO Work Phone: [phone])[facility] [place], [place] [address]Sgwffokoyg24-00-0198 14:06-0400Body mass index (BMI) [Ratio]34.99 kg/z1Harde Law DO Work Phone: [phone])[facility] [place], [place] [address]Srxptcolar01-90-2930 14:06-0400Body nzrtjy59.34 kgCorey Law DO Work Phone: [phone])[facility] [place], [place] [address]Tidixthcco78-79-0816 14:06-0400Diastolic blood iwbpmabp44 mm[Hg]Mukul Law DO Work Phone: [phone])[facility] [place], [place] [address]Unnmecawou72-30-1571 14:06-0400Systolic blood mm[Hg]Mukul Law DO Work Phone: [phone] [place], [place] [address]Soeovcaoaw36-99-2910 16:41-0400Body mass index (BMI) [Ratio]34.19 kg/z5Ivasj Law DO Work Phone: [facility] HospitalIbdlbhmagz35-81-3204 16:41-0400Body typtni37.07 kgCorey Law DO Work Phone: [phone] [place], [place] [address]Ogapubjiwe40-53-2935 16:41-0400Diastolic blood oddeajpe39 mm[Hg]Mukul Law DO Work Phone: [facility] HospitalVoudcoeejg03-72-0537 16:41-0400Systolic blood rmojxfos463 mm[Hg]Mukul Law DO Work Phone: [phone] [place], [place] [address]Ylzqzovsde06-39-3551 16:15-0400Body mass index (BMI) [Ratio]34.22 kg/c1Nvczw Law DO Work Phone: [phone] [place], [place] [address]Zeixovmdpa00-95-5012 16:15-0400Body uetgmu43.16 kgCorey Law DO Work Phone: [phone] [place], [place] [address]Eelqfkdnxl01-49-0074 16:15-0400Diastolic blood vannxvii42 mm[Hg]Mukul Law DO Work Phone: [phone] [place], [place] [address]Huovurroxd92-27-0839 16:15-0400Systolic blood hykavqqn756 mm[Hg]Mukul Law DO Work Phone: [phone] [place], [place] [address]Zkfcrrphvo90-90-5666 15:15-0400Body mass index (BMI) [Ratio]33.57 kg/m2[facility]04-24-2025 15:15-0400Body bzqytz31.35 kgFreeman [facility]os[facility]04-24-2025 15:15-0400Diastolic blood mm[Hg][facility]04-24-2025 15:15-0400Systolic blood iomhyuni645 mm[Hg][facility]12-23-2024 16:25-0500Body mass index (BMI) [Ratio]32.93 kg/s1Ljksr Law DO Work Phone: [facility] HospitalBeuvyenwdn24-84-7313 16:25-0500Body naimnm55.53 kgCorey Law DO Work Phone: [facility] HospitalGbmwfnhwxn67-54-3326 03:06-0500Body yvewgi24.8024 kgDR MUKUL FOY .The [facility] HealthComment on above:Performed By: #### AFPMAT #### [facility] [address] [place] [address] Dr. Emilee Springer Encounters Encounter DateEncounter TypeCare ProviderFacilityStart: 05-14-2025 End: 48-11-0100ntlauasamjZNGKO FAZIONot AvailableStart: 05-14-2025 End: 39-39-3675Oekdzwvn flow sheetCorey Law DO Work Phone: [facility] Heri OBGYNComment on above:Third trimester ([facility]); 34 weeks gestation of ([facility]); Insulin controlled gestational diabetes mellitus (GDM) during , antepartum ([facility]); Gestational diabetes mellitus (GDM), antepartum, gestational diabetes method of control unspecified([facility])Start: 05-14-2025 End: 35-24-9263Ohlvfl flowsheetCorey Law DO Work Phone: [facility] [place] OBGYNStart: 05-14-2025 End: 60-59-4183Zvkggq flowsheetCorey Law DO Work Phone: [facility] [place] OBGYNStart: 04-30-2025 End: 47-47-6944xpjfsfiqcoWGDQKZQK EBERLYNot AvailableStart: 04-30-2025 End: 16-73-7785Idaogsdc flow sheetCeaasr Li TRUSS PULLER HELPER Work Phone: [facility] [place] OBGYNComment on above:Third trimester ([facility]); 32 weeks gestation of ([facility])Start: 04-30-2025 End: 82-22-7101Ucszsa Dani Li TRUSS PULLER HELPER Work Phone: [facility] [place] OBGYNStart: 04-30-2025 End: 07-43-1206Ifllnb Dani Li TRUSS PULLER HELPER Work Phone: [facility] OBGYNStart: 04-30-2025 End: 77-77-2682Wzrfbuotk Result EncounterCorevicki Foy DO Work Phone: noms External Department UnsolicitedStart: 04-14-2025 End: 06-61-0215uhancypvogZYI RAMEYNot AvailableStart: 04-14-2025 End: 68-12-6040Zplvaprl flow sheetRegina RUIZ Work Phone: NOPB [place] OBGYNComment on above:Third trimester ([facility]); 30 weeks gestation of ([facility])Start: 04-14-2025 End: 63-16-3747Lvfdqh Darek RUIZ Work Phone: [facility] OBGYNStart: 04-14-2025 End: 07-35-3577Ijpddv vaibhavLandon RUIZ Work Phone: [facility] [place] OBGYNStart: 04-05-2025 End: 20-39-3383Pjnfdlpxn Result EncounterAmy Oralia JOSEPH Work Phone: noms External Department UnsolicitedStart: 04-05-2025 End: 61-33-8561Dzfiozeww Result EncounterAmy Oralia JOSEPH Work Phone: noms External Department UnsolicitedStart: 04-03-2025 End: 52-76-1185lblfwwwkjgCHV RAMEYNot AvailableStart: 04-03-2025 End: 60-14-2652Zrtwcxhv flow katherineRegina Oralia JOSEPH Work Phone: [facility] [place] OBGYNComment on above:28 weeks gestation of ([facility]); Third trimester ([facility]); Dizziness; Gestational diabetes mellitus (GDM), antepartum, gestational diabetes method of control unspecified([facility]); History of miscarriage; Anemia, unspecified type; UTI symptomsStart: 04-03-2025 End: 00-08-4408Otahph Darek RUIZ Work Phone: [facility] OBGYNStart: 04-03-2025 End: 16-44-1502Gaczai flowsheetAmy Oralia PA Work Phone: [facility] [place] OBGYNStart: 03-12-2025 End: 38-25-0395rauroqyknzIJUNP FAZIONot AvailableStart: 03-12-2025 End: 82-14-7348Pbdcmeji flow sheetCorey Law DO Work Phone: [facility] [place] OBGYNComment on above:25 weeks gestation of ([facility]); Second trimester ([facility]); Gastroesophageal reflux disease without esophagitisStart: 03-12-2025 End: 06-30-9606Gqhnmt flowsheetCorey Law DO Work Phone: [facility] [place] OBGYNStart: 03-12-2025 End: 44-75-5159Kfqilq flowsheetCorey Law DO Work Phone: [facility] [place] OBGYNStart: 02-26-2025 End: 58-98-8985ioupnuihzcHYEOI FAZIONot AvailableStart: 02-26-2025 End: 29-15-1921Wssjejlw flow sheetCorey Law DO Work Phone: [facility] [place] OBGYNComment on above:23 weeks gestation of ([facility]); Elevated blood sugar level; Gastroesophageal reflux disease without esophagitisStart: 02-26-2025 End: 44-56-1389Ignxxt flowsheetCorey Law DO Work Phone: [facility] [place] OBGYNStart: 02-26-2025 End: 41-16-1876Celwow flowsheetCorey Law DO Work Phone: [facility] [place] OBGYNStart: 02-11-2025 End: 46-28-8669Yasjpuia flow sheetCorey Law DO Work Phone: [facility] BCP OBComment on above:Second trimester ([facility]); 20 weeks gestation of ([facility])Start: 02-11-2025 End: 66-40-1499gaigzkxrlkKEXQJ FAZIONot AvailableStart: 01-15-2025 End: 61-70-6656vaownouekrYYOIN FAZIONot AvailableStart: 01-15-2025 End: 89-70-9910Dwiipdiy flow sheetCorey Law DO Work Phone: noms [facility] OBComment on above:Second trimester ([facility]); 17 weeks gestation of ([facility]); Vaginal discharge; STD exposure; Screening, , for anatomic survey ([facility]); Gastroesophageal reflux in ([facility]); Gestational diabetes mellitus (GDM), antepartum, gestational diabetes method of control unspecified([facility])Start: 01-15-2025 End: 20-38-0469Msownu flowsheetCorey Law DO Work Phone: noms BCP OBStart: 01-15-2025 End: 37-06-3692Jbpznh flowsheetCorey Law DO Work Phone: noms BCP OBStart: 01-15-2025 End: 34-67-8379Dcaqbvqf Result EncounterAmy Oralia SC Work Phone: noms External Department UnsolicitedStart: 01-07-2025 End: 33-24-4233payisdejitJQRWSRHallie Lamas [facility]Start: 01-07-2025 End: 33-55-5349Qkvoowtfxz hospital visit by Kayden Steele CNP Work Phone: [facility]Start: 12-23-2024 End: 73-81-8570Hwnviasua Result EncounterCorey Law DO Work Phone: noms External Department UnsolicitedStart: 12-23-2024 End: 92-72-6699Qdwmjsego Result EncounterCorey Law DO Work Phone: noms External Department UnsolicitedStart: 12-20-2024 End: 55-76-1651gzffobykdgCEPXGPHallie Lamas [facility] HospitalStart: 12-20-2024 End: 84-33-5359Misihpwhjb hospital visit by [facility] Ultras[facility] UltrasoundComment on above:Subchorionic hematoma, antepartum, first trimester, not applicable or unspecified fetusStart: 12-18-2024 End: 42-30-1682ynyrvdzgtgBEYGX FAZIONot AvailableStart: 12-18-2024 End: 61-33-7833Tjphbikx flow sheetCorey Law DO Work Phone: noms BCP OBComment on above:Second trimester ; 12 weeks gestation of ; Subchorionic hematoma in first trimester, single or unspecified fetus; Diabetes mellitus screeningStart: 12-18-2024 End: 57-80-4671Yiovqa flowsheetCorey Law DO Work Phone: noms BCP OBStart: 12-18-2024 End: 85-40-3671Ohbxdd flowsheetCorey Law DO Work Phone: noms BCP OBStart: 11-14-2024 End: 52-53-8601Qyaomj outpatient visit 5 minutesNoms Bcp Ob Law NurseNOMS BCP OBComment on above:GA: 1l4mYlhtj: 11-14-2024 End: 60-51-3465suhwpzcdlbIMDKU FAZIONot AvailableStart: 07-15-2024 End: 64-36-5236Hasbyao encounter procedureCorey Law DO Work Phone: noms HealthcareStart: 07-15-2024 End: 67-94-9035Wtqkjcxu preventive med est patient 18-39 yrsCorey Law DO Work Phone: noms BCP OBComment on above:Well woman exam with routine gynecological examStart: 07-15-2024 End: 49-81-4690vhvbiqlkykCQMYV FAZIONot AvailableStart: 07-15-2024 End: 50-83-6954Ojfsiwkcc Result EncounterCorey Law DO Work Phone: noms External Department UnsolicitedStart: 07-15-2024 End: 75-17-1032Taqipwasd Result EncounterCorey Law DO Work Phone: [facility] External Department UnsolicitedStart: 05-20-2024 End: 55-56-4226nookzqvzrqFKBZYOHallie Cortés HospitalStart: 05-20-2024 End: 26-47-2474Aseywqzmtc hospital visit by Kayden Rodriguez APRN - VENDING MACHINE HOST/HOSTESS Work Phone: mthz LaboratoryComment on above:Elevated liver enzymes; Mixed hyperlipidemiaStart: 03-06-2024 End: 54-96-4163idqxrsojdiTODOYLShanda Cortés HospitalStart: 02-16-2024 End: 66-69-9169mgoystbteiFJUVFNShanda Cortés HospitalStart: 08-06-2023 End: 86-97-8843fknswwrgzoOzjrimbf:[facility] Hospitaltart: 07-11-2023 End: 26-05-1109bxoqddhysxCLNA [facility] Centertart: 03-20-2023 End: 41-04-6028zonabazwooVMWXU [facility] Townshiptart: 12-17-2022 End: 35-90-0181avcudnplsbGN MUKUL LAW .Facility:F9Pasgx: 12-12-2022 End: 31-10-3400rjlwxczwjgEC KYLIE SEYMOUR .Facility:R9Yuqil: 12-10-2022 End: 52-94-1215lnmxkyuhcjCY MUKUL LAW .Facility:A5Bzstc: 10-31-2022 End: 99-07-6063tfzdzmlfmiYW MUKUL LAW .Facility:T1Acoyv: 10-22-2022 End: 86-24-5964nuxmoeskyaNNB ORALIA .Facility:X1Iteac: 10-15-2022 End: 94-06-0085ipyvgfhiwzKS MUKUL LAW .Facility:E2Ybygj: 09-12-2022 End: 02-73-3007dkwyyzkawtSO MUKUL LAW .Facility:P7Hqkuc: 09-10-2022 End: 71-57-8558ryzsmwegymOT MUKUL LAW .Facility:O6Qreiy: 08-29-2022 End: 29-32-4168iwiguyokalPE MUKUL LAW .Facility:K1Trtax: 08-01-2022 End: 65-49-9280Dttsrgddgs hospital visit by MAGANGA LaboratoryStart: 07-04-2022 End: 97-37-0364jidsmkzyqfVJ MUKUL LAW .Facility:L2Hdazu: 06-23-2022 End: 13-00-8486ftxduuipseOP YELENA Henao WESTFacility:O5Wtjro: 06-09-2022 End: 09-94-4296kgbnscbjylMX MUKUL LAW .Facility:Y8Oganj: 06-02-2022 End: 37-66-6275Nhuehzdpmv hospital visit by Kayden Steele CNP Work Phone: mthz LaboratoryStart: 04-18-2022 End: 33-38-3749gjlgesbfruAX MUKUL LAW .Facility:P6Prbkf: 09-23-2021 End: 70-23-2993ufhkbkgpqcBUPCI CHECO [facility] HospitalStart: 09-08-2021 End: 12-94-0334frrmtrmsujZPXYL R FAZIORiverside Nondenominational HospitalStart: 08-25-2021 End: 25-67-3623wpsziebaaqKOGXR R FAZIORiverside Nondenominational HospitalStart: 08-19-2021 End: 66-54-4175uciummiexbJRCLD R FAZIORiverside Nondenominational HospitalStart: 08-10-2021 End: 88-06-7167Nfjiirrzve hospital visit by Kayden Steele CNP Work Phone: mthz LaboratoryComment on above:AmenorrheaStart: 11-25-2020 End: 51-56-9223Nlcgwnfdyt [facility] RadiologyComment on above:Frequent UTIStart: 05-04-2020 End: 28-71-6723Wpttujiufk hospital visit by Kayden Chapman LaboratoryComment on above:Encounter for screening for HIV; Other fatigue; Wellness examinationStart: 03-03-2020 End: 78-02-3988Nfqbnzxolp hospital visit by Brayden Dickinson LaboratoryComment on above:Screening for cervical cancer; Encounter for annual routine gynecological examination Procedures DateProcedureProcedure DetailPerforming ClinicianStart: 83-93-6110Lpujy dip stick/tablet rgnt non-auto w/o micrscpCorey Law DO Work Phone: Start: 10-51-5760TT OB BPP W NON-STRESSCorey Law DO Work Phone: Start: 33-14-7417Sscmx dip stick/tablet rgnt non-auto w/o micrscpKristina Guillermo CHRISTOPHER Work Phone: Start: 01-77-4945Oomrq dip stick/tablet rgnt non-auto w/o micrscpAmy Oralia RUIZ Work Phone: Start: 94-39-0309EX OB GROWTHRegina RUIZ Work Phone: Start: 45-10-0400FHG CBC WITH AUTO DIFFRegina RUIZ Work Phone: Start: 16-09-9146Xmcdf dip stick/tablet rgnt non-auto w/o micrscpAaric RUIZ Work Phone: Start: 50-59-8075Cxuac dip stick/tablet rgnt non-auto w/o micrscpCorey Law DO Work Phone: Start: 12-96-7594Wteoy dip stick/tablet rgnt non-auto w/o micrscpCorey Law DO Work Phone: Start: 94-31-6056Opyha dip stick/tablet rgnt non-auto w/o micrscpCorey Law DO Work Phone: Start: 56-90-5471FOYUYGVKW VAGINITIS (HTRX)Regina RUIZ Work Phone: Start: 83-47-1368Vlldb count complete automatedRegina Barton PA-C Work Phone: Start: 57-06-0243QP OB LESS THAN 14 WEEKS SINGLE OR FIRST GESTATIONCorey Law DO Work Phone: Start: 17-83-6734Bwcfa dip stick/tablet rgnt non-auto w/o micrscpCorey Law DO Work Phone: Start: 98-21-7877Mylar dip stick/tablet rgnt non-auto w/o micrscpCorey Law DO Work Phone: Start: 30-89-6477ZTP,APTIMA HPV,AGE GDLNCorey Law DO Work Phone: Start: 60-70-9680Pecpxhidurh observation [Identifier] in Cervix by Cyto Leonora Rodriguez CABLE TELEVISION PROGRAM DIRECTOR - [facility] Work Phone: Start: 31-64-5101Hwxpv panelYnes Rodriguez CABLE TELEVISION PROGRAM DIRECTOR - VENDING MACHINE HOST/HOSTESS Work Phone: Start: 35-17-9295Jzxpjihmemzag metabolic Nancy Rodriguez CABLE TELEVISION PROGRAM DIRECTOR - VENDING MACHINE HOST/HOSTESS Work Phone: Start: 48-86-7575Oypsshckuqw observation [Identifier] in Cervix by Cyto stainRockefeller War Demonstration Hospital RoomStart: 56-10-3947Yjontxya Navid Barroso CABLE TELEVISION PROGRAM DIRECTOR - [facility] Work Phone: Start: 51-59-1283Qcxpjabnwfmk chorionic quantitative Mukul Foy MD Work Phone: Start: 28-33-7396Qrqlbhotufdw chorionic quantitative Berto Live CABLE TELEVISION PROGRAM DIRECTOR - [facility] Work Phone: Start: 89-62-7381Bv retroperitoneal real time w/image completeBesilvestre Ricks CABLE TELEVISION PROGRAM DIRECTOR - VENDING MACHINE HOST/HOSTESS Work Phone: Start: 14-50-6016Qvqegrrp hiv-1&hiv-2 single result Ynes Rodriguez Work Phone: Start: 00-41-6436Yidzt of thyroid stimulating hormone tshYnes Rodriguez Work Phone: Start: 94-81-5615Mqrjx metabolic panel calcium total Ynes Conner Rodriguez Work Phone: Start: 70-39-5370Yfgpe count complete automatedYnes Rodriguez Work Phone: Start: 26-21-0585Wmojapuijaz observation [Identifier] in Cervix by Cyto stainYnes Rodriguez CABLE TELEVISION PROGRAM DIRECTOR - VENDING MACHINE HOST/HOSTESS Work Phone: Plan of Treatment DateCare ActivityDetailAuthorStart: 11-67-1099Iurvcdtcb for malignant neoplasm of cervixPap smearInova Children'S HospitalStart: 66-48-3859Kivnzxyma for malignant neoplasm of cervixPap smearInova Children'S HospitalStart: 08-07-2025 Depression ScreenDepression ScreenInova Children'S HospitalStart: 07-28-2025 End: 55-57-4915Htikzot encounter procedureNOMS BCP OBStart: 05-28-2025 End: 37-03-8851Dkviium encounter pmuolryut96/05/2025 2:30 PM EST Routine [facility] [address] [place], [id number] Regina Barton PA [address] [place] [address] [facility]i OBGYNStart: 05-28-2025 End: 32-96-0982Znyfhtaapyot / ancillary services eosxuwpqza48/05/2025 2:00 PM EST Ancillary Procedure [facility] [address] [place] [phone] [facility] OBGYNStart: 08-33-2678Jyinj panelLipids [facility] HospitalStart: 05-14-2025 End: 60-66-7990Tsvcqeh encounter ztzsauyvw01/22/2025 2:50 PM EDT Routine [facility] [address] [facility] [place], [id number] Mukul Foy DO [address] [place] [address] [facility]i OBGYNStart: 05-14-2025 End: 83-95-3236QQ for pregnancyUS OB follow up transabdominal approach Imaging Routine Insulin controlled gestational diabetes mellitus (GDM) during , antepartum ([facility]) Expected: 05/14/2025, Expires: 09/14/2025[facility] Work Phone: comment on above:Expected: 05/14/2025, Expires: 09/14/2025Start: 05-14-2025 End: 44-50-9543Tojifhp encounter hufjgupak87/22/2025 11:40 AM EDT Office Visit [facility] [address] [place] [address] Ynes Rodriguez, CABLE TELEVISION PROGRAM DIRECTOR - VENDING MACHINE HOST/HOSTESS [address] [place] [id number] 6 month f/[facility] CareComment on above:6 month f/uStart: 04-30-2025 End: 46-95-2192Njajmap encounter xnrssayaj01/08/2025 3:00 PM EDT Routine NOMRenzo SANTO [address] [place], [phone] Ceasar Li, ASHWIN [address] [place] [phone] NOMRenzo [place] OBGYNStart: 04-14-2025 End: 19-95-9738Qzflvzl encounter /22/2025 3:20 PM EDT Routine NOMRenzo SANTO [address] [place], [id number] Regina Barton PA [address] [place] [address] [facility]i OBGYNStart: 04-03-2025 End: 15-32-1519Umlswmn encounter buroeqptl38/11/2025 3:30 PM EDT Routine NOMRenzo BURNETTEN [address] [place], [phone] Regina Barton PA [address] [place] [address] N[facility]S Heri OBGYNStart: 04-03-2025 End: 30-13-6758QFU W Auto Differential panel - BloodCBC and differential Lab Routine Dizziness Anemia, unspecified type Expected: 04/03/2025 (Approximate), Expires: 04/03/2026NOWI HealthcareComment on above:Expected: 04/03/2025 (Approximate), Expires: 04/03/2026Start: 04-03-2025 End: 55-26-4920FJ biophysical profile w non stress testUS biophysical profile w non stress test Imaging Routine 28 weeks gestation of ([facility]) Third trimester ([facility]) Gestational diabetes mellitus (GDM), antepartum, gestational diabetes method of control unspecified ([facility]) History of miscarriage Expected: 04/03/2025 (Approximate), Expires: 10/01/2025NOW[facility] HealthcareComment on above:Expected: 04/03/2025 (Approximate), Expires: 10/01/2025Start: 04-03-2025 End: 02-04-2185LJ for pregnancyUS OB follow up transabdominal approach Imaging Routine 28 weeks gestation of ([facility]) Third trimester ([facility]) Gestational diabetes mellitus (GDM), antepartum, gestational diabetes method of control unspecified ([facility]) History of miscarriage Expected: 04/03/2025, Expires: 08/03/2025[facility] Work Phone: comment on above:Expected: 04/03/2025, Expires: 08/03/2025Start: 94-74-6881Cwvxdvqia vaccinationNOWI HealthcareStart: 02-21-2025 Influenza vaccinationFlu vaccine (Season Ended)[facility] HospitalStart: 02-11-2025 End: 94-56-5075Apsifsf encounter evwxtlwfn10/22/2025 2:10 PM EDT Routine [facility] [address] [facility] [place] [phone] Mukul Foy, [address] [place] [address] NOMS BCP OBStart: 02-11-2025 End: 67-26-7691Mhygujuobzba / ancillary services hkshiguvzc30/22/2025 1:00 PM EDT Ancillary Procedure [facility] [place] [address] [place] [phone] NOMS BCP OBStart: 01-15-2025 End: 25-86-2524Lqrrzfq encounter awdroilzt99/25/2025 3:50 PM EDT Routine [facility] [address] [facility] [place] [phone] Mukul Foy, [address] [place] [address] NOMS BCP OBStart: 01-15-2025 End: 21-64-2045Omkyk fetoprotein, maternalAlpha fetoprotein, maternal Lab Routine Second trimester ([facility]) 17 weeks gestation of ([facility]) Expected: 01/15/2025 (Approximate), Expires: 07/17/2025[facility] Comment on above:Expected: 01/15/2025 (Approximate), Expires: 07/17/2025Start: 01-15-2025 End: 30-67-8714PZ for pregnancyUS OB 14+ weeks anatomy scan Imaging Routine Screening, , for anatomic survey ([facility]) Expected: 01/15/2025, Expires: 04/17/2025NOW[facility] HealthcareComment on above:Expected: 01/15/2025, Expires: 04/17/2025Start: 12-18-2024 End: 65-43-6309Hstgmzy encounter liwgcsrlq38/28/2025 3:40 PM EDT Routine [facility] [address] [place] [phone] Mukul Foy, [address] [place] [address] NOMS BCP OBStart: 12-18-2024 End: 25-27-2169NZJ panel - Blood by Automated countCBC Lab Routine Diabetes mellitus screening Expected: 12/18/2024 (Approximate), Expires: 12/18/2025[facility] Work Phone: comment on above:Expected: 12/18/2024 (Approximate), Expires: 12/18/2025Start: 12-18-2024 End: 23-88-8916Wrcwlqetsdc of glucose 1 hour after glucose challenge for glucose tolerance testGlucose tolerance, 1 hour Lab Routine Diabetes mellitus screening Expected: 12/18/2024 (Approximate), Expires: 12/18/2025NOW[facility] HealthcareComment on above:Expected: 12/18/2024 (Approximate), Expires: 12/18/2025Start: 12-18-2024 End: 69-23-8424BW Pelvis transvaginalUS OB transvaginal Imaging Routine Subchorionic hematoma in first trimester, single or unspecified fetus Expected: 12/18/2024, Expires: 03/20/2025[facility] Work Phone: comment on above:Expected: 12/18/2024, Expires: 03/20/2025Start: 11-14-2024 End: 70-63-1098ZUR/RhABO/Rh Lab Routine Missed menses , unspecified gestational age Expected: 11/14/2024 (Approximate), Expires: 11/14/2025[facility] HealthcareComment on above:Expected: 11/14/2024 (Approximate), Expires: 11/14/2025Start: 11-14-2024 End: 00-98-2206Fwtgw type and Indirect antibody screen panel - BloodType and screen Lab Routine Missed menses , unspecified gestational age Expected: 11/14/2024 (Approximate), Expires: 11/14/2025[facility] HealthcareComment on above:Expected: 11/14/2024 (Approximate), Expires: 11/14/2025Start: 11-14-2024 End: 91-96-0065Bzqfb of abuse panel - Urine by Screen methodRapid drug screen, urine Lab Routine , unspecified gestational age Encounter for supervision of normal first in first trimester Expected: 11/14/2024 (Approximate), Expires: 11/14/2025NOMS HealthcareComment on above:Expected: 11/14/2024 (Approximate), Expires: 11/14/2025Start: 11-06-2024 End: 87-79-6578XB Pelvis transvaginalUS OB transvaginal Imaging Routine Missed menses Expected: 11/06/2024, Expires: 02/05/2025[facility] Work Phone: comment on above:Expected: 11/06/2024, Expires: 02/05/2025Start: 10-16-2024 End: 66-88-9326Eosyqqa encounter alsbrgxxq63/26/2025 1:40 PM EDT Office Visit [facility] [address] [place] [address] [address] [place] [address] Ynes Rodriguez, CABLE TELEVISION PROGRAM DIRECTOR - VENDING MACHINE HOST/HOSTESS [address] [place] [address] [address] [place] [address] [facility] Primary CareComment on above:WellnessStart: 15-88-1802Fzfuoggdxq ScreenDepression ScreenBon Secours Summa HealthStart: 06-04-2024 End: 54-05-3745Onxrwas encounter jcjuieejz26/12/2024 11:45 AM EST Office Visit [facility] Care [address] [place] [address] Dr [address] [place] [address] Jose Cruz Raza MD [address] [place] [address] Dr. [address] [place] [address] wt [facility] Primary CareComment on above:wt managementStart: 05-22-2024 End: 72-79-8237Fzafoqy encounter falnmlcua49/30/2024 11:00 AM EDT Office Visit [facility] [address] [place] [address] Ynes Rodriguez, CABLE TELEVISION PROGRAM DIRECTOR - VENDING MACHINE HOST/HOSTESS [address] [place] [address] LFT + HLD f/u(RS 10/17/23 appt)[facility] Primary CareComment on above:LFT + HLD f/u(RS 10/17/23 appt)Start: 39-41-8874SXUTB-19 Vaccine ( season)COVID-19 Vaccine ( season)[facility] HospitalStart: 26-71-6800UTBIB-19 Vaccine ( season)COVID-19 Vaccine ( season)[facility] CenterStart: 23-38-2730Swmwpyyko vaccinationInfluenza Vaccine (#1)[facility] HospitalStart: 50-32-3656Scebamvnw vaccinationFlu vaccine (#1)[facility] HospitalStart: 60-16-2050Hzbqyblng for malignant neoplasm of cervixHolzer Hospital HealthStart: 57-74-1215Eepfmatdlx ScreenDepression ScreenBON [facility]OM[facility]ARK HOSPITALStart: 07-11-2022 End: 29-97-2763Guddfsb encounter fotlmnbok69/19/2022 Office Visit Primary Care Ynes Rodriguez, CABLE TELEVISION PROGRAM DIRECTOR - VENDING MACHINE HOST/HOSTESS [address] [place] [address] [facility] Start: 05-19-2022 End: 58-34-1607Ptfgpmo encounter qomhdyzlh77/27/2022 Office Visit Obstetrics and Gynecology Berto Live, JOSE J - CNM [address] [place] [address] [facility] Part [facility] Hospitaltart: 03-18-2022 End: 69-17-5551Zyvzvuq encounter juxhiglhy96/ Office Visit Family Medicine Ynes Rodriguez, CABLE TELEVISION PROGRAM DIRECTOR - VENDING MACHINE HOST/HOSTESS [address] [place] [address] [facility] Hospitaltart: 69-80-3222Lawtrdkop C screeningHepatitis C screenHolzer Hospital HealthComment on above:Postponed from 1998 (Patient Refused)Start: 74-19-8583Aaefnnqxc vaccinationFlu vaccine (#1)[facility] Centerart: 15-87-6567Lwrjmvxfv for Chlamydia trachomatisSumma HealthStart: 09-24-2021 Influenza vaccinationFlu vaccine (Season Ended)[facility] Work Phone: comment on above:Postponed from 03/24/2021 (Patient Refused)Start: 81-34-5658Dkthpmjdlb MonitoringDepression [facility] Start: 30-95-3391DLGAE-19 Vaccine (3 - Booster for Pfizer series)COVID-19 Vaccine (3 - Booster for Pfizer series)[facility] Hospitalart: 03-82-2979BAmC/Tdap/Td vaccine (7 - Td or Tdap)DTaP/Tdap/Td vaccine (7 - Td or Tdap)[facility]: 14-73-6628KDfL/Tdap/Td vaccine (7 - Td)DTaP/Tdap/Td vaccine (7 - Td)[place]: 39-96-4946Stqfjdhim vaccinationFlu vaccine (#1)[facility] Start: 15-80-3661Pkzntimnh for Chlamydia trachomatisChlamydia screenMartins Ferry Hospital: 39-43-6196UDMSC-19 Vaccine (3 - Booster for Pfizer series) COVID-19 Vaccine (3 - Booster for Pfizer series)[facility]: 02-09-2021 End: 09-28-8242Jofbkvm encounter zaovuzmnx68/20/2021 Office Visit Family Medicine Ynes Rodriguez, CABLE TELEVISION PROGRAM DIRECTOR - VENDING MACHINE HOST/HOSTESS [address] [place] [address] [phone] [facility] End: 67-90-2114Shelvrz encounter bvfdhovce95/10/2021 Office Visit Urology Chris Moe MD [address], [address] [place], [id number] [phone] [facility] End: 35-79-4045Dfzynfpfqyja91/05/2020 Telemedicine Family Medicine Ynes Rodriguez, CABLE TELEVISION PROGRAM DIRECTOR - VENDING MACHINE HOST/HOSTESS [address] [facility] [address] [place] [address] [phone] [facility] Start: 88-94-5645Stvikgjwl vaccinationFlu vaccine (#1)[facility]: 61-82-1332Hmsvhwhuf for Chlamydia trachomatisChlamydia [facility]: 35-54-5658Rjhdbcsri for malignant neoplasm of cervixCervical cancer screenMartins Ferry Hospital: 76-05-8001Fccypgduf C screeningHepatitis C screenBON [facility]OU[facility]: 72-06-4278BMCRS-19 Vaccine (1)COVID-19 Vaccine (1)[facility] Phone: start: 39-39-5943GYQ screeningHIV [facility]: 13-81-8131Dcjsnqbnl C screeningHepatitis C [facility] Phone: bacteria identified in Urine by CultureUrine culture Microbiology Routine Missed menses Ordered: 11/14/2024NOWI HealthcareComment on above:Ordered: 5Bacteria identified in Urine by CultureUrine culture Microbiology Routine UTI symptoms Ordered: 04/03/2025[facility] HealthcareComment on above:Ordered: 04/03/2025 End: 03-03-2020C.trachomatis N.gonorrhoeae DNA, Thin PrepC.trachomatis N.gonorrhoeae DNA, Thin Prep Microbiology Routine Encounter for annual routine gynecological examination 1 Occurrences starting 03/03/2020 until 03/03/2020 [facility] [place], [place]:1 Occurrences starting 03/03/2020 until 03/03/2020C.trachomatis N.gonorrhoeae DNA, Thin PrepC.trachomatis N.gonorrhoeae DNA, Thin Prep Microbiology Routine Encounter for annual routine gynecological examination 03/03/2020 5:08 PM [facility] [place] W Auto Differential panel - BloodCBC and differential Lab Routine Missed menses , unspecified gestational age Ordered: 11/14/2024[facility] HealthcareComment on above: Ordered: 11/14/2024HLAMYDIA TRACHOMATIS (GENITO/STI)CHLAMYDIA TRACHOMATIS (GENITO/STI) Lab Routine STD exposure Ordered: 01/15/2025[facility] HealthcareComment on above:Ordered: 5Cytology Cervical or vaginal smear or scraping study Pap Smear Pathology and Cytology Routine Well woman exam with routine gynecological exam Ordered: 07/15/2024[facility] Work Phone: comment on above:Ordered: 07/15/2024 End: 66-00-8700Uolvuiijmpsjf procedure, preparation of smear, genital sourcePAP SMEAR Lab Routine Screening for cervical cancer 1 Occurrences starting 03/03/2020 until [facility]/03/2020[facility] [place]:1 Occurrences starting 03/03/2020 until 03/03/2020Hemoglobin A1c/Hemoglobin.total in Blood Hemoglobin A1c Lab Routine Missed menses , unspecified gestational age Ordered: 11/14/2024[facility] HealthcareComment on above:Ordered: 11/14/2024Hepatitis B virus surface Ag [Presence] in Serum or Plasma by ImmunoassayHepatitis B surface antigen Lab Routine Missed menses , unspecified gestational age Ordered: 11/14/2024[facility] HealthcareComment on above:Ordered: 11/14/2024Hepatitis C virus Ab [Presence] in Serum or Plasma by ImmunoassayHepatitis C antibody Lab Routine Missed menses , unspecified gestational age Ordered: 11/14[facility] HealthcareComment on above:Ordered: 11/14/2024HIV-1/HIV-2 antigen/antibody combination immunoassayHIV-1 and HIV-2 antibodies Lab Routine Missed menses , unspecified gestational age Ordered: 11/14/2024[facility] HealthcareComment on above:Ordered: 11/14/2024Neisseria gonorrhoeae DNA [Presence] in Unspecified specimen by ANISA with probe detectionNeisseria gonorrhea DNA probe, direct Lab Routine STD exposure Ordered: 01/15/2025[facility] HealthcareComment on above:Ordered: 01/15/2025Reagin Ab [Presence] in Serum by RPRRPR Lab Routine Missed menses , unspecified gestational age Ordered: 11/14/2024[facility] HealthcareComment on above:Ordered: 11/14/2024Rubella antibody, IgGRubella antibody, IgG Lab Routine Missed menses , unspecified gestational age Ordered: 11/14/2024[facility] HealthcareComment on above:Ordered: 11/14/2024SURESWAB(R) ADVANCED VAGINITIS PLUS, TMASURESWAB(R) ADVANCED VAGINITIS PLUS, TMA Pathology and Cytology Routine Vaginal discharge Ordered: 01/15/2025 [facility] Work Phone: comment on above:Ordered: 01/15/2025US Pelvis transvaginalUS OB transvaginal Imaging Routine Missed menses 11/14/2024 2:38 PM [facility] End: 14-02-9671Ty uterus 14 wk transabdl 07/24 [facility] Work Phone: Comment on above:1 Occurrences starting 12/20/2024 until 12/20/2024 Immunizations Immunization DateImmunizationNotesCare YuwodshpWlyqyzla20-87-6810SLEOZ-17, Pfizer Purple top, DILUTE for use, 12+ yrs, 30mcg/0.3mL doseHannah Rodriguez CABLE TELEVISION PROGRAM DIRECTOR - VENDING MACHINE HOST/HOSTESS Work Phone: [facility] Work Phone: [phone]-02, Pfizer Purple top, DILUTE for use, 12+ yrs, 30mcg/0.3mL doseHannah Rodriguez CABLE TELEVISION PROGRAM DIRECTOR - VENDING MACHINE HOST/HOSTESS Work Phone: [facility] HealthEbgqrx25-78-0306phigv papilloma virus vaccine, quadrivalentEwingna [facility], UW48-88-4690oqzmm papilloma virus vaccine, quadrivalentMount Carmel Health System, WX84-79-2066tcort papilloma virus vaccine, quadrivalentMount Carmel Health System, [place] 99-87-2685mpoimzmrcuxnf polysaccharide (groups A, C, Y and W-135) diphtheria toxoid conjugate vaccine (MCV4P)[facility], LS16-59-0588 meningococcal ACWY vaccine, unspecified formulationMount Carmel Health System, II83-45-4983Hinzwbrvc A Ped/Adol (Vaqta)[facility], [place] 26-15-6863qweoucdyn A vaccine, pediatric/adolescent dosage, 2 dose schedule Ynes Fede CABLE TELEVISION PROGRAM DIRECTOR Maozhao VENDING MACHINE HOST/HOSTESS Work Phone: [facility] Work Phone: [phone] toxoid, reduced diphtheria toxoid, and acellular pertussis vaccine, adsorbedMount Carmel Health System, [place] 57-26-1501Teiyqeeyh A Ped/Adol (Vaqta)[facility], [place] 29-09-2783xjlxpnjli A vaccine, pediatric/adolescent dosage, 2 dose schedule Ynes Fede CABLE TELEVISION PROGRAM DIRECTOR Maozhao [facility] Work Phone: bon [facility] Work Phone: [phone]uhuhnx virus vaccineMount Carmel Health System, EC63-18-7242pukzezjxuqbkn polysaccharide (groups A, C, Y and W-135) diphtheria toxoid conjugate vaccine (MCV4P)[facility], [place] 01-56-5516iajhysafff, tetanus toxoids and acellular pertussis vaccineMount Carmel Health System, IU38-34-7826gijxbhw, mumps and rubella virus vaccine [facility], RC71-87-3028orpcvtuswh vaccine, inactivated [facility], ML44-05-0465kphahslwmr, tetanus toxoids and acellular pertussis vaccineMount Carmel Health System, DL90-75-5000 haemophilus influenzae type b vaccine, PRP-T conjugateMount Carmel Health System, UM89-08-9945kyrnratayc vaccine, inactivatedMount Carmel Health System, KP28-51-5437kecjtpt, mumps and rubella virus vaccineHenry County Hospital, KC16-27-7034qvajaoqeq virus vaccineMount Carmel Health System, XI36-65-2278ozbhopcil B vaccine, pediatric or pediatric/adolescent dosageMount Carmel Health System, KZ37-11-1401ibwxnuzaok, tetanus toxoids and acellular pertussis vaccineMount Carmel Health System, NU88-72-9023 haemophilus influenzae type b vaccine, PRP-T conjugateMount Carmel Health System, LG51-14-6990cbjcylysec, tetanus toxoids and acellular pertussis vaccineMount Carmel Health System, ZT36-36-9459aqiitgulrox influenzae type b vaccine, PRP-T conjugateMount Carmel Health System, AG82-29-2609 poliovirus vaccine, inactivatedMount Carmel Health System, ZC46-02-1586 haemophilus influenzae type b vaccine, PRP-T conjugateMount Carmel Health System, PI07-90-7361lwaxqacydo vaccine, inactivatedMount Carmel Health System, XB33-49-1418dujwgxpasg, tetanus toxoids and acellular pertussis vaccineOhio Valley Surgical Hospital03-18-1999hepatitis B vaccine, pediatric or pediatric/adolescent dosageMount Carmel Health System, YT51-79-4648 hepatitis B vaccine, pediatric or pediatric/adolescent dosageHenry County Hospital, [place] Payers DatePayer CategoryPayerPolicy [id number] SPECIALTY BILLING [facility] [id number] 2022-Present [address] [place] [address] [id number] Health InsuranceMEDICAL MUTUAL Member Subscriber Plan / Payer (Effective 2022-Present) Name: Vinny Downey Relation to Subscriber: Spouse Name: Abhishek Downey Date of : 1996 Address: [address] [place] [id number] Payer ID: Not on file Type: Not on file Address: [address] [id number] [id number] 2.0.1.528358.3.57[id number] 2.840.1.582508.3.579.[id number] 2.0.1.936308.3.57[id number] 2.840.1.621615.3.57[id number] 2.840.1.331172.3.57[id number] 2.840.1.050873.3.57[id number] 2.840.1.651655.3.57[id number] 2.840.1.258487.3.579.2.07739-45-1423Vnxxqfj5643525 2.840.1.531924.3.579.[id number] 2.840.1.519005.3.579.2.69348-99-2745Egqefve2825635 2.16840.1.286273.3.579.2.52441-13-4852Ycwfixf5539686 2.16.840.1.355877.3.579.2.05888-57-6994Vrcspii7221214 2.16.840.1.449366.3.579.2.98521-41-8006Kkzquxv7650750 2.16.840.1.561786.3.579.2.38052-95-9745Pezkmzc9877575 2.16.840.1.965179.3.579.2.77070-91-7355Ksnpkml1725386 2.16.840.1.119961.3.579.2.87622-30-2270Wvtttcn4850937 2.16.840.1.847599.3.579.[id number] 2.16840.1.799100.3.579.2.34411-50-6324Kehkqhj41434759 2.16.840.1.471237.3.579.2.05370-24-5700Htatsyd32162382 2..840.1.217748.3.579.2.86623-92-6527Dnyozgs91712882 2.16.840.1.116159.3.579.2.33751-79-7534Wcqyyqp12985126 2.840.1.580400.3.57[id number] 2.16.840.1.339714.3.579.2.40398-31-3799Vkqfvkt73542661 2.16840.1.307613.3.579.2.[id number] 2.16.840.1.850096.3.57[id number] 2.16.840.1.061432.3.579.2.568795-57-3329Fsqpabr07299689 2.16.840.1.343146.3.579.2.168956-46-4315Ayozovf51435747 2.16.840.1.281579.3.579.2.949331-82-4297Tevtcqo11226348 2.16.840.1.450885.3.579.2.083257-01-4061Nlheevz11742790 2.16.840.1.803292.3.57[id number] 2.16.840.1.420808.3.579.2.900258-87-0915Veveuzj11243942 2.16.840.1.760229.3.579.2.715494-12-6429Haqxptx8828830 2..840.1.357270.3.579.2.660304-89-1372Lkawcbg5270799 2.16.840.1.431507.3.579.2.303126-83-5322Jdyzngn5426090 2.16.840.1.287868.3.579.2.209700-22-6030Bbzdmea6574739 2..840.1.331862.3.579.2.916181-71-2636Ipyu-acp68-61-9613PfxmoknPRSKU2507388 1.2.840.245302.1.13.239.2.7.3.624972.04693-79-5252Qtkocrh74092501328897-47-8975 Zhivviz296833282855Nkcbivx3480821 2.840.1.913078.3.579.2.593 Social History DateTypeDetailFacilavita health systemStart: 03-03-2020 End: 28-14-6282Alfjbva smoking status [facility]: 03-03-2020 End: 90-42-1835Ojdmibx use and exposureNever usedMart[facility]erry [facility]: 03-03-2020 End: 57-44-9077Zqxgwvi intakeCurrent drinker of alcohol (finding)[facility]: 75-37-8901Bqlbqog CommentsocialMartins Ferry Hospital: 11-09-7373Yes Assigned At BirthNot on [facility], [facility]: 05-01-2020 End: 11-82-7961Inxxarr SDOH Dcrygorte3IhixpMartins Ferry Hospital: 05-01-2020 End: 77-86-1657Whwgitd SDOH Food Zbydi4BkiqqMcKitrick Hospital, [facility]: 05-01-2020 History SDOH Transport Dtq[address]Vg[address] [place], [place] [address]Exposure to SARS-CoV-2 (event)Not sureMagruder Hospital: 05-01-2024 End: 44-32-2095Irtloarok beverage intakeEx-drinker (finding)[facility] HospitalStart: 05-01-2024 End: 75-38-5306Qdtofxi of Social functionBon [facility] Hospitalart: 05-01-2024 End: 17-27-3911Vhhefqd use panelInova Children'S HospitalStart: 60-05-5760Gho hard is it for you to pay for the very basics like food, housing, medical care, and heatingNot hard at allInova Children'S Hospital(I/We) worried whether (my/our) food would run out before (I/we) got money to buy more.Never trueBon [facility] CenterStart: 56-10-2075Jvm assigned at birthFemaleBon [facility] CenterStart: 27-81-2718Uymenx identityIdentifies as female gender (finding)Anthony [facility] CenterStart: 07-05-2023 End: 11-49-4433Oduufqopk beverage intakeLifetime non-drinker (finding)[facility] HealthcareStart: 48-58-3465KrztjqdagKTJI HealthcareHas the electric, gas, oil, or water company threatened to shut off services in your home in past 12MoNoBon [facility] CenterStart: 68-46-2837CvrPyzdja (finding)Anthony [facility] Medical Equipment Procedure CodeEquipment CodeEquipment Original TextEquipment IdentifierDatesUse as [id number]: 01-15-2025 End: 87-55-9382Zayqdz 1 each under the skin [id number]: 04-07-2025 End: 07-16-2025 Goals DatePatient GoalDesired Activity/StatePersonal health goal Clinical Notes 03-20-2023 to 05-14-2025 Note Date & QsoeWdojXxkgizrf96-01-6897 History of Present illness Narrative* Criselda Aguirre, HEAD CHEF - 05/14/2025 2:50 PM EDT Reason for [...] Frequent UTI 11/30/2020 23 weeks gestation of ([facility]) 02/26/2025 Elevated blood sugar level 02/26/2025 Resolved Ambulatory Problems Diagnosis Date Noted Missed period 01/13/2023 Past Medical History: Diagnosis Date GDM (gestational diabetes mellitus) ([facility]) HISTORY PAST MEDICAL HISTORY SOCIAL HISTORY Past Medical History: Diagnosis Date GDM (gestational diabetes mellitus) ([facility]) Social History Tobacco Use Smoking status: Never [...] nursing note reviewed. Exam conducted with a immunohematologist present. Vitals: Estimated body mass index is 37.47 kg/m as calculated from the following: Height as of 01/30/23: 5' 6 . Weight as of this encounter: 232 lb 1.9 oz. BP: 110/70 Patient's last menstrual period was 09/16/2024. Assessment/Plan ICD-10-CM 1. Third trimester ([facility]) Z34.93 2. 34 weeks gestation of ([facility]) Z3A.34 POCT urinalysis dipstick manually resulted Return [...] of: Mukul Foy DO documented in this encounterSt. Louis Children's HospitalWktgofkqyt09-55-1586 History of Present illness Narrative* Ceasar Li NP - 04/30/2025 3:00 PM EDT [...] Frequent UTI 11/30/2020 23 weeks gestation of ([facility]) 02/26/2025 Elevated blood sugar level 02/26/2025 Resolved Ambulatory Problems Diagnosis Date Noted Missed period 01/13/2023 Past Medical History: Diagnosis Date GDM (gestational diabetes mellitus) ([facility]) HISTORY PAST MEDICAL HISTORY SOCIAL HISTORY Past Medical History: Diagnosis Date GDM (gestational diabetes mellitus) ([facility]) Social History Tobacco Use Smoking status: Never [...] nursing note reviewed. Exam conducted with a immunohematologist present. Vitals: Estimated body mass index is 36.7 kg/m as calculated from the following: Height as of 01/30/23: 5' 6 . Weight as of this encounter: 227 lb 6.4 oz. BP: 110/70 Patient's last menstrual period was 09/16/2024. ASSESSMENT & PLAN ICD-10-CM 1. Third trimester ([facility]) Z34.93 2. 32 weeks gestation of ([facility]) Z3A.32 POCT urinalysis dipstick manually resulted Return [...] of: Ceasar Li NP documented in this encounterSt. Louis Children's HospitalRpjfftrckn64-54-4541 History of Present illness Narrative* JOSEPH Bowie [...] Frequent UTI 11/30/2020 23 weeks gestation of ([facility]) 02/26/2025 Elevated blood sugar level 02/26/2025 Resolved Ambulatory Problems Diagnosis Date Noted Missed period 01/13/2023 Past Medical History: Diagnosis Date GDM (gestational diabetes mellitus) ([facility]) HISTORY PAST MEDICAL HISTORY SOCIAL HISTORY Past Medical History: Diagnosis Date GDM (gestational diabetes mellitus) ([facility]) Social History Tobacco Use Smoking status: Never [...] ASSESSMENT & PLAN ICD-10-CM 1. Third trimester ([facility]) Z34.93 POCT urinalysis dipstick manually resulted 2. 30 weeks gestation of ([facility]) Z3A.30 Return OB: Patient presents today for [...] behalf of: JOSEPH Bowie documented in this encounterSt. Louis Children's HospitalNhkjkjztjv88-28-4785 History of Present illness Narrative* OJSEPH Bowie - 04/03/2025 3:30 PM EDT Reason [...] Frequent UTI 11/30/2020 23 weeks gestation of ([facility]) 02/26/2025 Elevated blood sugar level 02/26/2025 Resolved Ambulatory Problems Diagnosis Date Noted Missed period 01/13/2023 Past Medical History: Diagnosis Date GDM (gestational diabetes mellitus) ([facility]) HISTORY PAST MEDICAL HISTORY SOCIAL HISTORY Past Medical History: Diagnosis Date GDM (gestational diabetes mellitus) ([facility]) Social History Tobacco Use Smoking status: Never [...] PLAN ICD-10-CM 1. 28 weeks gestation of ([facility]) Z3A.28 POCT urinalysis dipstick manually resulted US OB follow up transabdominal approach US biophysical profile w non stress test 2. Third trimester ([facility]) Z34.93 POCT urinalysis dipstick manually resulted US OB follow up transabdominal approach US biophysical profile w non stress test 3. Dizziness R42 CBC and differential CBC and differential 4. Gestational diabetes mellitus (GDM), antepartum, gestational diabetes method of control unspecified ([facility]) O24.419 US OB follow up transabdominal approach [...] behalf of: JOSEPH Bowie documented in this encounterSt. Louis Children's HospitalTrllrhawgt82-93-7817 History of Present illness Narrative* Mukul Foy, - 03/12/2025 3:50 PM EDT Reason for [...] Frequent UTI 11/30/2020 23 weeks gestation of ([facility]) 02/26/2025 Elevated blood sugar level 02/26/2025 Resolved Ambulatory Problems Diagnosis Date Noted Missed period 01/13/2023 Past Medical History: Diagnosis Date GDM (gestational diabetes mellitus) ([facility]) No family history on file. Social History [...] nursing note reviewed. Exam conducted with a immunohematologist present. Vitals: Estimated body mass index is 36.12 kg/m as calculated from the following: Height as of 01/30/23: 5' 6 . Weight as of this encounter: 223 lb 12.8 oz. BP: 100/70 Patient's last menstrual period was 09/16/2024. Assessment/Plan Encounter Diagnosis: ICD-10-CM 1. 25 weeks gestation of ([facility]) Z3A.25 POCT urinalysis dipstick manually resulted 2. Second trimester ([facility]) Z34.92 POCT urinalysis dipstick manually resulted 3. [...] of: Mukul Foy DO documented in this encounterSt. Louis Children's HospitalOfginbotzm54-94-0785 History of Present illness Narrative* Ceasar Li [...] Frequent UTI 11/30/2020 23 weeks gestation of ([facility]) 02/26/2025 Elevated blood sugar level 02/26/2025 Resolved Ambulatory Problems Diagnosis Date Noted Missed period 01/13/2023 Past Medical History: Diagnosis Date GDM (gestational diabetes mellitus) ([facility]) HISTORY PAST MEDICAL HISTORY SOCIAL HISTORY Past Medical History: Diagnosis Date GDM (gestational diabetes mellitus) ([facility]) Social History Tobacco Use Smoking status: Never [...] nursing note reviewed. Exam conducted with a immunohematologist present. Vitals: Estimated body mass index is 35.96 kg/m as calculated from the following: Height as of 01/30/23: 5' 6 . Weight as of this encounter: 222 lb 12.8 oz. BP: 110/70 Patient's last menstrual period was 09/16/2024. ASSESSMENT & PLAN ICD-10-CM 1. 23 weeks gestation of ([facility]) Z3A.23 POCT urinalysis dipstick manually resulted pantoprazole [...] of: Mukul Foy DO documented in this encounterSt. Louis Children's HospitalEuoogmqlhg50-04-2827 History of Present illness Narrative* JOSEPH Bowie [...] History: Diagnosis Date GDM (gestational diabetes mellitus) ([facility]) HISTORY PAST MEDICAL HISTORY SOCIAL HISTORY Past Medical History: Diagnosis Date GDM (gestational diabetes mellitus) ([facility]) Social History Tobacco Use Smoking status: Never [...] ASSESSMENT & PLAN ICD-10-CM 1. Second trimester ([facility]) Z34.92 metFORMIN XR (Glucophage-XR) 500 MG 24 hr tablet POCT urinalysis dipstick manually resulted 2. 20 weeks gestation of ([facility]) Z3A.20 metFORMIN XR (Glucophage-XR) 500 MG 24 [...] of: Mukul Foy DO documented in this encounterSt. Louis Children's HospitalThantmycmk60-02-6436 History of Present illness Narrative* Criselda Aguirre [...] History: Diagnosis Date GDM (gestational diabetes mellitus) ([facility]) HISTORY PAST MEDICAL HISTORY SOCIAL HISTORY Past Medical History: Diagnosis Date GDM (gestational diabetes mellitus) ([facility]) Social History Tobacco Use Smoking status: Never [...] nursing note reviewed. Exam conducted with a immunohematologist present. Vitals: Estimated body mass index is 34.19 kg/m as calculated from the following: Height as of 01/30/23: 5' 6 . Weight as of this encounter: 211 lb 12.8 oz. BP: 118/72 Patient's last menstrual period was 09/16/2024. ASSESSMENT & PLAN ICD-10-CM 1. Second trimester ([facility]) Z34.92 Alpha fetoprotein, maternal Alpha fetoprotein, maternal 2. 17 weeks gestation of ([facility]) Z3A.17 Alpha fetoprotein, maternal Alpha fetoprotein, maternal 3. Vaginal discharge N89.8 SURESWAB(R) ADVANCED VAGINITIS PLUS, TMA 4. STD exposure Z20.2 CHLAMYDIA TRACHOMATIS (GENITO/STI) Neisseria gonorrhea DNA probe, direct 5. Screening, , for anatomic survey ([facility]) Z36.89 US OB 14+ weeks anatomy scan 6. Gastroesophageal reflux in ([facility]) O99.619 omeprazole (PriLOSEC) [address] capsule K21.9 7. Gestational diabetes mellitus (GDM), antepartum, gestational diabetes method of control unspecified ([facility]) O24.419 glucose blood test strip Return OB/Annual [...] behalf of: alesha bowie documented in this encounterSt. Louis Children's HospitalSxsyuwknmh68-90-8805 History of Present illness Narrative* JOSEPH Bowie [...] Documented by JOSEPH Bowie documented in this encounterSt. Louis Children's HospitalAucijfpjxt23-82-3713 History of Present illness Narrative* Elizabeth Ware [...] Nurse Note: Patient uncertain of doing the [place] screening. Pt was advised both labs and [...] by: Elizabeth Ware MA documented in this encounterSt. Louis Children's HospitalEwzciykdcu37-88-7611 History of Present illness Narrative* Elizabeth Ware [...] nursing note reviewed. Exam conducted with a immunohematologist present. Vitals: Estimated body mass index is [...] of: Mukul Foy DO documented in this encounterSt. Louis Children's HospitalLhfukzwxky86-65-5647 NoteHNO ID: [id number] Author: LANG CARREON APRN.VENDING MACHINE HOST/HOSTESS Service: ? Author Type: Nurse Practitioner Type: Progress Notes Filed: 08/06/2023 10:44 Note Text: Telemedicine Visit - Distance Health Virtual Visit Note I have communicated my name and active licensure. The patient's identity and physical location were verified at the time of this visit. Either the patient or their legal fuels sales representative has been informed of the risks and benefits of -- and alternatives to -- treatment through a remote evaluation and consents to proceed with the evaluation remotely. Patient seen on virtual platforms, [employer] [facility]. Location of patient: [place] History of Presenting Illness: Vinny Downey 22 [...] - Sleep with head elevated due to aemi-mcixd-dqyt increases cough - Continue Flonase - Flonase: [...] - All questions answered Lang Carreon APRN.[facility]12-19-2023 NoteUT Electrophysiology Consult Note Reason for visit: [...] recent labs Rajendra Sheffield MD Cardiac Electrophysiology [facility]hilloUnMer[facility]12-19-2023 NotePatient here for follow up event monitor. Echo was not performed that was ordered at last apt in Feb 2023 by Israel Champion CNP. Does not notice palpitations as often. Denies chest pain, SOB, and lightheadedness. Review of Systems Cardiovascular: Positive for palpitations (less often). All other systems reviewed and are negative.[facility] 03-30-2023 Note-developed anemia s/p -hgb 10.8 per recent labsUnMer[facility]09-07-[facility]23 Note- could be related to being , anemia -monitor and echo to rule out cardiac concernUnMercy Health [facility] 03-30-2023 Note- takes sertraline 50 mg dailyUnMercy Health [facility] 03-30-2023 Note- 30-day event monitor - we will hold off on starting medication until follow-upUnMercy [facility]08-28-2023 NoteNew patient here to establish care. Ref from Dr. Foy for bradycardia. She is 8 weeks . Had ECG last week. Symptoms started after baby was born. She feels palpitations. Did lose a lot of blood with , requiring transfusion. Denies chest pain and SOB. Review of Systems Cardiovascular: Positive for palpitations. Neurological: Positive for headaches. All other systems reviewed and are negative.[facility] 03-20-2023 NoteUT Electrophysiology Consult Note Reason for [...] images are attached to (more content not included)...[facility] Frequent UTI Urinary tract infection, site not specified documented in this encounter [facility] Phone: evaluation note* Diagnosis Amenorrhea Absence of menstruation documented in this encounter [employer] Phone: evaluation note* Diagnosis Elevated liver enzymes Nonspecific elevation of levels of transaminase or lactic acid dehydrogenase (LDH) Mixed hyperlipidemia documented in this encounter [facility] [facility]* Diagnosis Well woman exam with routine [...] unspecified fetus documented in this encounter [facility] [employer]* Diagnosis Second trimester ([facility]) state, incidental 17 weeks gestation of ([facility]) Vaginal discharge Leukorrhea, not specified as infective STD exposure Screening, , for anatomic survey ([facility]) Encounter for anatomic survey Gastroesophageal reflux in ([facility]) Gestational diabetes mellitus (GDM), antepartum, gestational diabetes method of control unspecified([facility]) [facility] Diagnosis Second trimester ([facility]) state, incidental 20 weeks gestation of ([facility]) [facility]* Diagnosis 23 weeks gestation of ([facility]) Elevated blood sugar level Other abnormal glucose Gastroesophageal reflux disease without esophagitis Esophageal reflux [facility]* Diagnosis 25 weeks gestation of ([facility]) Second trimester ([facility]) state, incidental Gastroesophageal reflux disease without esophagitis Esophageal reflux [facility]* Diagnosis 28 weeks gestation of ([facility]) Third trimester ([facility]) state, incidental Dizziness Dizziness and giddiness Gestational diabetes mellitus (GDM), antepartum, gestational diabetes method of control unspecified([facility]) History of miscarriage Personal history of other genital system and obstetric disorders Anemia, unspecified type UTI symptoms [facility]* Diagnosis Third trimester ([facility]) state, incidental 30 weeks gestation of ([facility]) [facility]* Diagnosis Third trimester ([facility]) state, incidental 32 weeks gestation of ([facility]) [facility]* Diagnosis Third trimester ([facility]) state, incidental 34 weeks gestation of ([facility]) Insulin controlled gestational diabetes mellitus (GDM) during , antepartum ([facility]) Gestational diabetes mellitus (GDM), antepartum, gestational diabetes method of control unspecified([facility]) documented in this encounter [facility] Narrative* Imaging (Routine) - OpenSpecialty Diagnoses / ProceduresReferred By ContactReferred To ContactRadiology Diagnoses Subchorionic hematoma, antepartum, first trimester, not applicable or unspecified fetus Procedures US OB LESS THAN 14 WEEKS SINGLE OR FIRST GESTATION W DOPPLER US OB TRANSVAGINAL Mukul Foy MD [address] [place] [address] Phone: tel: Referral IDStatusReasonStart DateExpiration DateVisits RequestedVisits [id number]/55/ [facility] Assessments Diagnosis Screening for cervical cancer Screening for malignant neoplasm of the cervix Encounter for annual routine gynecological examination Diagnosis Encounter for screening for HIV Other fatigue Wellness examination Advance Directives No Advanced Directives Records FoundDocuments on File TypeDate RecordedPatient RepresentativeExplanationAdvance Directives and Living WillPower of AttorneyTypeDate RecordedPatient RepresentativeExplanationACP- Advance DirectiveACP-Power of AttorneyTypeDate RecordedPatient Environmental Services Tech ExplanationACP-Advance DirectiveACP-Power of Sander Setter Summary Purpose Family History No Family History Records FoundNo Family History Records FoundNo Family History Records FoundNo Family History Records FoundNo Family History Records FoundNo Family History Records FoundNo Family History Records Found Reason for Referral StatusReasonSpecialtyDiagnoses / ProceduresReferred By ContactReferred To ContactClosedRadiology Diagnoses Frequent UTI Procedures US RENAL COMPLETE Lorena Ricks, CABLE TELEVISION PROGRAM DIRECTOR - VENDING MACHINE HOST/HOSTESS [address] [facility] [address] [place] [address] Additional Source Comments INFORMATION SOURCE (unrecogn ized section and content) DATE CREATED AUTHOR 10/14/2020 [facility] DATE CREATED AUTHOR AUTHOR'S ORGANIZ ATION 09/26/2021 [facility] DATE CREATED AUTHOR AUTHOR'S ORGANIZ ATION 12/30/2022 [facility] DATE CREATED AUTHOR AUTHOR'S ORGANIZ ATION 08/03/[address] [facility] DATE CREATED AUTHOR AUTHOR'S ORGANIZ ATION 08/07/2023 [facility] DATE CREATED AUTHOR AUTHOR'S ORGANIZ ATION 01/09/2025 [facility] DATE CREATED AUTHOR AUTHOR'S ORGANIZ ATION 05/16/2025 [facility] EPIC Reason for Visit (unrecogniz ed section and content) StatusReasonSpecialtyDiagnoses / ProceduresReferred By ContactReferred To ContactClosedRadiology Diagnoses Frequent UTI Procedures US RENAL COMPLETE Lorena Ricks, CABLE TELEVISION PROGRAM DIRECTOR - VENDING MACHINE HOST/HOSTESS [address] [place] [address] ReasonCommentsGynecologic ExamReasonCommentsAmenorrheaReasonCommentsRoutine VisitReasonCommentsRoutine VisitSTI Screening Care Teams (unrecognized sec tion and content) Team MemberRelationshipSpecialtyStart DateEnd Date Ynes Rodriguez, CABLE TELEVISION PROGRAM DIRECTOR - VENDING MACHINE HOST/HOSTESS [address] [place] [address] PCP - GeneralFamily Nurse Cofuljncdwzb45/12/20Team MemberRelationshipSpecialty Start DateEnd Date Ynes Rodriguez, CABLE TELEVISION PROGRAM DIRECTOR - VENDING MACHINE HOST/HOSTESS [address] [facility] [address] [place] [address] PCP - GeneralFamily Nurse Psyhsmpexiep73/12/20Team MemberRelationshipSpecialty Start DateEnd Date Ynes Rodriguez, CABLE TELEVISION PROGRAM DIRECTOR - VENDING MACHINE HOST/HOSTESS [address] [facility] [address] [place] [address] PCP - GeneralFamily Nurse Practitioner08/02/22Team MemberRelationshipSpecialty Start DateEnd Date Ynes Rodriguez, JOSE J - VENDING MACHINE HOST/HOSTESS [address] [facility] [address] [place] [address] PCP - GeneralFamily Nurse Practitioner08/02/22Team MemberRelationshipSpecialty Start DateEnd Date Ynes Rodriguez, JOSE J - VENDING MACHINE HOST/HOSTESS [address] [facility] [address] [place] [address] PCP - GeneralFamily Nurse Practitioner08/02/22 FOR RECORDS [...] THE PRIMARY CLINICAL RECORDS. [facility] AppointmentCity [facility]. provides no warranty or guarantee of the accuracy or completeness of information in this document.
--- OUTSIDE RECORDS SUMMARY | 2025-05-17 08:15 | XMS_ITS | Encounter Summary ---
Author Organization [facility] Address [address], [address] [place] [address] Care Team Providers Care Geography Department Chair Name Role Phone Ynes Mistry CONSULTANT INTERN - COVERER Primary Care Provide r Encounter Details DateTypeDepartmentCare Team (Latest Contact Info)Qegpkpzocoe42/21/2025Orders Only [facility] Primary Care [address] [place] [address] [address] [place] [id number] Provider, MD Yuval Social History Tobacco UseTypesPacks/DayYears UsedDateSmoking Tobacco: NeverSmokeless Tobacco: NeverAlcohol UseStandard Drinks/WeekCommentsNot Currently0 (1 standard drink = 0.6 oz pure alcohol)[facility] UtilitiesAnswerDate RecordedIn the past 12 months has the electric, gas, oil, or water company threatened to shut off services in your home?No10/07/2024Overall Financial Resource Strain (CARDIA)AnswerDate RecordedHow hard is it for you to pay for the very basics like food, housing, medical care, and heating?Not hard at all07/13/2023HQ-2AnswerDate RecordedPHQ-9 Total Mkfdm053Hunger Vital SignAnswerDate RecordedWithin the past 12 months, [...] were you homeless or living in a long-term (including now)?No10/07/2024Food InsecurityAnswerDate RecordedWithin the past 12 months, you worried that your food would run out before you got the money to buy more.Within the past 12 months, the food you bought just didn't last and you didn't have money to get more.CommentsNoSex and Gender InformationValueDate RecordedSex Assigned at MhuzwLopiql94/28/2024 8:24 PM EDTLegal BotSiasmu62/10/2013 3:31 PM ESTGender QxjrbbqqUnsthy46/28/2024 8:24 PM EDTSexual OrientationNot on filedocumented as of this encounter Plan of Treatment Not on file documented as of this encounter Procedures Procedure NamePriorityDate/TimeAssociated DiagnosisCommentsCHG BIOPHYSICAL PROFILE NON-STRESS FTAGLWWUlhjerx44/15/2025 3:54 PM EDTdocumented in this encounter Results * CHG BIOPHYSICAL PROFILE NON-STRESS TESTING (05/07/2025 3:54 PM EDT) Narrative Authorizing ProviderResult TypeResult StatusHistorical Provider MDPR IMAGING Final Result documented in this encounter Visit Diagnoses Not on filedocumented in this encounter Care Teams Team MemberRelationshipSpecialtyStart DateEnd Date Ynes Mistry, CONSULTANT INTERN - COVERER [address] [facility] [place] [phone] PCP - GeneralFamily Nurse Practitioner08/02/22documented as of this encounter
--- OUTSIDE RECORDS SUMMARY | 2025-05-17 08:15 | XMS_ITS | Clinical Summary ---
Author Organization [facility] Address [address] [place], [place] [id number] Care Team Providers Care Wireless Operator Name Role Phone Unavailable Primary Care Provider Unavailabl e Allergies No known active allergies Medications MedicationSigDispense QuantityRefillsLast FilledStart DateEnd DateStatus benzonatate (TESSALON PERLE) 100 mg capsule Take 1-2 capsules every 8 hours as needed. 60 capsule 4Active Active Problems No known active problems Social History Tobacco UseTypesPacks/DayYears UsedDateSmoking Tobacco: Never Assessed CommentsUnknownSex and Gender InformationValueDate RecordedSex Assigned at Not on fileLegal SguSeecvu72/14/2024 10:20 AM ESTGender IdentityNot on file Sexual OrientationNot on file Plan of Treatment Health MaintenanceDue DateLast DoneCommentsPeds To Adult Transition Initial Skrvzouebh78/17/2011Peds To Adult Transition Annual Trawymtuma42/17/2013nxiety Ekhbbruna29/17/2017Depression Lkswiltqj63/17/2017HIV Orjlfekhx74/17/2017 Hepatitis C Upqcehwvc09/17/2017Cervical Cancer Llfdlwiic25/17/2020DTaP,Tdap,Td Vaccine (7 - Td or Tdap)/, 11/20/2003, 03/13/2000, Additional history existsCovid-19 Vaccine ( season)/02/2021, 12/07/2020Influenza Vaccine (#1)2025Hepatitis B VaccineCompleted 06/09/1999, 1998, 1998HPV RneabrxLcelebgqi89/28/2018, 05/01/2017, 02/24/2017 Insurance
--- OUTSIDE RECORDS SUMMARY | 2025-05-17 08:15 | XMS_ITS | Encounter Summary ---
Author Organization [facility] Address [address] [place] [address] Care Team Providers Care Career Services Manager Name Role Phone Unavailable Primary Care Provider Unavailabl e Encounter Details DateTypeDepartmentCare Team (Latest Contact Info)Nncxsgajcqh21/22/2025amboo flowsheet [facility] [address] [place] [address] Mukul Foy DO [address] [place], [facility] Social History Tobacco UseTypesPacks/DayYears UsedDateSmoking Tobacco: NeverSmokeless Tobacco: NeverAlcohol UseStandard Drinks/WeekCommentsNever0 (1 standard drink = 0.6 oz pure alcohol)Estimated Date of MzfthupiLyjnzhktSjx37/01/2025Based on last menstrual period of 09/16/2024Sex and Gender InformationValueDate Recorded Sex Assigned at BirthNot on fileLegal WbqHztjhy74/15/2023 11:47 PM EDTGender IdentityNot on fileSexual OrientationNot on filedocumented as of this encounter Plan of Treatment DateTypeDepartmentCare Team (Latest Contact Info)Disjcjqyjkn28/05/2025 2:00 PM ESTAncillary Procedure [facility] [address] [place] [address] 05/28/2025 2:30 PM ESTRoutine [facility] [address] [place] [phone] Regina Barton PA [address] [place], [place] [phone] 07/28/2025 4:00 PM ESTOffice Visit [facility] [address] [place] [address] Mukul Foy DO [address] [place], [place] [phone] documented as of this encounter Goals GoalPatient Goal TypeAssociated ProblemsRecent ProgressPatient-Stated?Author Reminders Care PlanOB RemindersNoOpen Scheduling, Backgrounddocumented as of this encounter Visit Diagnoses Not on filedocumented in this encounter Additional Health Concerns Active ProblemsNoted DateDiagnosed DateOB Iafndllxu38/09/2025 documented as of this encounter
--- OUTSIDE RECORDS SUMMARY | 2025-05-17 08:16 | XMS_ITS | Clinical Summary ---
Author Organization [facility] Healthcare Address [address] [place] [address] Care Team Providers Care Mason Tender Restoration Labor Name Role Phone Unavailable Primary Care Provider Unavailabl e Allergies No known active allergies Medications MedicationSigDispense QuantityRefillsLast FilledStart DateEnd DateStatus sertraline (Zoloft) 50 MG tablet Indications:Anxiety, generalizedTAKE 1 TABLET BY MOUTH EVERY DAY IN THE MORNING 30 tablet 304/5Active glucose blood test strip Indications:Gestational diabetes mellitus (GDM), antepartum, gestational diabetes method of control unspecified([facility])Use as instructed 100 each 1206//556621/6Active metFORMIN XR (Glucophage-XR) 500 MG 24 hr tablet Indications:Second trimester ([facility]),20 weeks gestation of ([facility])Take 2 tablets (1,000 mg) by mouth in the evening. Take with meals 60 tablet 507//341817/6Active pantoprazole (Protonix) 40 MG EC tablet Indications:23 weeks gestation of ([facility]),Elevated blood sugar level ,Gastroesophageal reflux disease without esophagitisTake 1 tablet (40 mg) by mouth in the morning. Take before meals. Do not crush, chew, or split. 30 tablet 1108//624474/6Active metoclopramide (Reglan) 10 MG tablet Indications:Gastroesophageal reflux disease without esophagitisTake 1 tablet (10 mg) by mouth in the morning and 1 tablet (10 mg) at noon and 1 tablet (10 mg) in the evening. Take before meals. Take 1 tablet by mouth 30 minutes prior to meals 3 times daily as needed for nausea. 90 tablet 5Active insulin pen needle 29G x 8mm [facility] Indications:Insulin controlled gestational diabetes mellitus (GDM) during , antepartum ([facility])Inject 1 each under the skin Daily 100 [...] Problems ProblemNoted DateDiagnosed Date23 weeks gestation of ([facility]) 02/26/2025Elevated blood sugar level02/26/2025bnormal glucose level01/13/2023 Mupdvbbcr40/23/5356Uibfzojtjbq16/23/2023Dyspareunia in dlkshq8211/30/2020Frequent UTI11/30/20206974Womekuw74/07/2020Insomnia due to other mental jnlytczq26/10/2020 Other vwpyvep5405/02/2020Estimated Date of FmqmwiznForrdkmeZex97/01/2025 Based on last menstrual period of 09/16/2024 Resolved Problems ProblemNoted DateDiagnosed DateResolved DateMissed efowde65/ Encounters DateTypeDepartmentCare CezpQjfzyhaouau83/22/2025 2:50 PM EDTRoutine [facility] [address] [facility] [place] [address] rBitt Foy, DO Third trimester ([facility]); 34 weeks gestation of ([facility]); Insulin controlled gestational diabetes mellitus (GDM) during , antepartum ([facility]); Gestational diabetes mellitus (GDM), antepartum, gestational diabetes method of control unspecified([facility])05/14/2025amboo flowsheet [facility] [place] [facility] [address] [facility] [place] [phone] Britt Foy, DO 05/02/2025bstract [facility] [place] [facility] [address] [facility] [place] [phone] Britt Foy, DO 04/30/2025 3:00 PM EDTRoutine [facility] [address] [facility] [place] [phone] Tiffany Li, ASHWIN Third trimester ([facility]); 32 weeks gestation of ([facility])04/30/2025linisync Result Encounter NOMS External Department Unsolicited Britt Foy, DO 04/30/2025amboo flowsheet [facility] [place] [facility] [address] [facility] [place] [phone] Tiffany Li NP 04/27/20253525Pbyrii53/23/2025bstract [facility] [address] [facility] [place] [phone] Britt Foy, DO 04/14/2025 3:20 PM EDTRoutine [facility] [address] [facility] [place] [phone] Regina Cummins PA Third trimester ([facility]); 30 weeks gestation of ([facility])04/14/2025amboo flowsheet [facility] [address] [facility] [place] [phone] Regina Cummins PA 04/14/20256152Wowwbv05/15/2025Telephone [facility] [place] [facility] [address] [facility] [place] [phone] Chaz ElizabethDAFNE 04/05/2025linisync Result Encounter NOMS External Department Unsolicited Regina Cummins PA 04/05/2025linisync Result Encounter NOMS External Department Unsolicited Regina Cummins PA 04/03/2025 3:30 PM EDTRoutine [facility] [address] [facility] [place] [address] Regina Cummins PA 28 weeks gestation of ([facility]); Third trimester ([facility]); Dizziness; Gestational diabetes mellitus (GDM), antepartum, gestational diabetes method of control unspecified([facility]); History of miscarriage; Anemia, unspecified type; UTI aalbcjeu19/11/2025amboo flowsheet [facility] [place] [facility] [address] [facility] [place] [address] Regina Cummins PA 04/02/2025Telephone [facility] [place] [facility] [address] [facility] [place] [phone] Yasemin SuyapaYOVANA 04/01/20250594Cjeuga77/21/2025bstract [facility] [address] [facility] [place] [phone] Britt Fyo, 03/12/2025 3:50 PM EDTRoutine [facility] [place] [facility] [address] [facility] [place] [address] Britt Foy, 25 weeks gestation of ([facility]); Second trimester ([facility]); Gastroesophageal reflux disease without qwazjczjaux96/20/2025amboo flowsheet [facility] [address] [facility] [place] [phone] Britt Foy, 03/03/2025bstract [facility] [place] [facility] [address] [facility] [place] [address] Britt Foy, DO 02/28/2025bstract [facility] Heri SANTO [address] [place] [address] [place] [address] Britt Foy, 02/26/2025 3:30 PM EDTRoutine NOMS Heri [place] [address] Britt Foy, 23 weeks gestation of ([facility]); Elevated blood sugar level; Gastroesophageal reflux disease without hsbplpotbrs92/06/2025amboo flowsheet [facility] [place] [facility] [place] [address] Britt Foy, 02/19/2025Travelfrom Last 3 Months Family History RelationNameStatusCommentsDaughterAliveFatherAliveMotherAliveSisterAlive Social History Tobacco UseTypesPacks/DayYears UsedDateSmoking Tobacco: NeverSmokeless Tobacco: Never Tobacco Cessation:Counseling Given: Not Answered Alcohol UseStandard Drinks/WeekCommentsNever0 (1 standard drink = 0.6 oz pure alcohol)Estimated Date of RqojrqmaOwkameuzRni85/01/2025ased on last menstrual period of 09/16/2024Sex and Gender InformationValueDate RecordedSex Assigned at BirthNot on fileLegal ZevGqwmcd97/15/2023 11:47 PM EDTGender IdentityNot on fileSexual OrientationNot on file Last Filed Vital Signs Vital SignReadingTime TakenCommentsBlood Bptwodqo034/7005/14/2025 3:05 PM EDT Pulse--Temperature--Respiratory Rate--Oxygen Saturation--Inhaled Oxygen Concentration--Xyksxx421 kg (232 lb 1.9 oz)05/14/2025 3:05 PM QATVffwtt546.6 cm (5' 6 )01/30/2023 12:12 PM EDTBody Mass Index37.4707 12:12 PM EDT Plan of Treatment DateTypeDepartmentCare Team (Latest Contact Info)Yuzxnjsywfr63/05/2025 2:00 PM ESTAncillary Procedure [facility] [place] [facility] [place] [phone] 05/28/2025 2:30 PM ESTRoutine [facility] [place] [facility] [address] [facility] [place] [phone] Regina Cummins PA [address] [facility] [place] [address] 07/28/2025 4:00 PM ESTOffice Visit NOMRenzo SANTO [address] [facility] [place] [phone] Britt Foy DO [address] [facility] [address] [place], [place] [phone] Health MaintenanceDue DateLast DoneCommentsInfluenza Vaccine (#1)03/24/2025 Goals GoalPatient Goal TypeAssociated ProblemsRecent ProgressPatient-Stated?Author Reminders Care PlanOB RemindersNoOpen Scheduling, Background Procedures Procedure NamePriorityDate/TimeAssociated DiagnosisCommentsPOCT URINALYSIS HZOXWRXVXlzondo31/22/2025 3:13 PM EDT 34 weeks gestation of ([facility]) OB BPP W NON-DPKSHV5704/30/2025 10:59 PM EDT POCT URINALYSIS SLDHYEPYArbjzct09/08/2025 3:19 PM EDT 32 weeks gestation of ([facility]) POCT URINALYSIS VGWOLWQYMltwfif52/22/2025 3:54 PM EDT Third trimester ([facility]) US OB AJWXZI9904/05/2025 12:08 PM EDT ALL CBC WITH AUTO ONQMPvksosy95/13/2025 10:33 AM EDT URINARY TRACT INFECTION (HTRX)Nveanug3904/03/2025 3:53 PM EDT POCT URINALYSIS OHCOGVJTKbwuapd95/11/2025 3:51 PM EDT 28 weeks gestation of ([facility]) Third trimester ([facility]) POCT URINALYSIS FCDHMWKRCljkcec11/20/2025 4:14 PM EDT 25 weeks gestation of ([facility]) Second trimester ([facility]) POCT URINALYSIS LZEPCZOZKwckvfw85/06/2025 4:03 PM EDT 23 weeks gestation of ([facility]) Elevated blood sugar level from Last 3 Months Results * POCT urinalysis dipstick manually resulted (05/14/2025 3:13 PM EDT) Only the most recent of6 resultswithin the time period is included. ComponentValueRef [...] Location / LateralityCollection Method / VolumeCollection TimeReceived XhgmOmsno49/22/2025 3:13 PM EDT Narrative Authorizing ProviderResult TypeResult StatusCorey Alw DOPOINT OF CARE TEST ENTER/EDIT ORDERABLESFinal Result * US OB BPP W NON-STRESS (04/30/2025 10:59 PM EDT)Anatomical Region LateralityModalityOtherSpecimen (Source)Anatomical Location / Laterality Collection Method / VolumeCollection TimeReceived Time04/30/2025 10:59 PM EDT Narrative 04/30/2025 11:[address] [facility] ?[address] ? [place] [address] ? Ultrasound Report ? Signed ? Patient: ARVINER,VINNY C ?MR#: [id number] ?? : 2000 ?Acct:[id number] ?? Age/Sex: 24 / F ?ADM Date: 10/08/25 ?? Loc: US ? Attending Dr: Britt Foy D.O. ? Ordering Physician: Britt Foy D.O. ?? Date of Service: 04/30/25 ?? Procedure(s): US OB BPP w non-stress ?? Accession Number(s): [id number] ? cc: Britt Foy D.O.; Ynes Mistry BREADING MACHINE TENDER ? [facility] ? [address] ? [place] [address] ? Patient Name: ?? VINNY HERRERA ? MRN: [facility]:[id number] ? date: 2000 ?Sex: F ?? Assigned Patient Location: FB ?? Current Patient Location: ? Accession/Order Number: [id number] ?? Exam Date: 04/30/2025 ??15:57 ?Report Date: [...] M.D. ??04/30/2025 10:59 PM ? Dictation Location: [facility] ? Electronically authenticated by: [id number] ??Y ?? Date: 04/30/2025 ??22:59 ? Dictated By: ?Chevy Moreland M.D. ? Signed By: ?04/30/25 230 ? DD/ 58 ? TD/TT: ? Crane Hoist Or Lift Operator: Procedure Note Radiology, Radiologist, MD - 04/30/[address] [address] Ultrasound Report Signed Patient: VINNY HERRERA CMR#: [id number] : 2000Acct:[id number] Age/Sex: 24 / FADM Date: 04/30/25 Loc: US Attending Dr: Britt Foy D.O. Ordering Physician: Britt Foy D.O. Date of Service: 04/30/25 Procedure(s): US OB BPP w non-stress Accession Number(s): [id number] cc: Britt Foy D.O.; Ynes Mistry BREADING MACHINE TENDER [place] [address] Patient Name: VINNY HERRERA MRN: [facility]:[id number] date: 2000 Sex: F Assigned Patient Location: [facility] Current Patient Location: Accession/Order Number: [id number] Exam Date: 04/30/2025 15:57 Report Date: 04/30/2025 22:59 At the request of: BRITT FOY DO Procedure: US OB BPP w non-stress Ultrasound biophysical profile INDICATION: Gestational diabetes COMPARISON: 04/05/2025 FINDINGS/IMPRESSION:: Fetus cephalic position. / score biophysical profile. heart rate 145 beats per minutes. JAMAL 12.7 cm. Impression dictated by: Chevy Moreland M.D. 04/30/2025 10:59 PM Dictation Location: [place] [address] Electronically authenticated by: [id number] Y Date: 2:59 Dictated By: Chevy Moreland M.D. Signed By:04/30/25 2302 DD/ 2259 TD/TT: Crane Hoist Or Lift Operator: Authorizing ProviderResult TypeResult StatusCorey Law DOCLINISYNC IMAGINGFinal Result * US OB GROWTH (04/05/2025 12:08 PM EDT)Anatomical RegionLateralityModalityOther Specimen (Source)Anatomical Location / LateralityCollection Method / Volume Collection TimeReceived Time04/05/2025 12:08 PM EDT Narrative 04/05/2025 12:[address] [facility] ?[address] ? [place] [address] ? Ultrasound Report ? Signed ? Patient: HOLMER,VINNY C ?MR#: [id number] ?? : 2000 ?Acct:[id number] ?? Age/Sex: 24 / F ?ADM Date: 09/13/25 ?? Loc: US ? Attending Dr: Regina Cummins ? Ordering Physician: Regina Cummins ?? Date of Service: 04/05/25 ?? Procedure(s): US OB growth ?? Accession Number(s): [id number] ? cc: Regina Cummins; Physician,Non-Staff M.D. ? [facility] ? [address] ? [place] [address] ? Patient Name: ?? VINNY HERRERA ? MRN: [facility]:[id number] ? date: 2000 ?Sex: F ?? Assigned Patient Location: US ?? Current Patient Location: LAB ?? Accession/Order Number: [id number] ?? Exam Date: 04/05/2025 ??10:00 ?Report Date: [...] M.D. ??04/05/2025 12:08 PM ? Dictation Location: [employer]-SessionM-20 ? Electronically authenticated by: [id number] ??Y ?? Date: 04/05/2025 ??12:08 ? Dictated By: ?Daryn Peraza D.O. ? Signed By: ?04/05/25 1211 ? DD/ 1208 ? TD/TT: ? Crane Hoist Or Lift Operator: Procedure Note Radiology, Radiologist, MD - 04/05/2025 [place] [address] Ultrasound Report Signed Patient: VINNY HERRERA CMR#: [id number] : 2000Acct:[id number] Age/Sex: 24 / FADM Date: 04/05/25 Loc: US Attending Dr: Regina Cummins Ordering Physician: Regina Cummins Date of Service: 04/05/25 Procedure(s): US OB growth Accession Number(s): [id number] cc: Regina Cummins; Physician,Non-Staff Khadar The [place] [address] Patient Name: VINNY HERRERA MRN: [facility]:[id number] date: 2000 Sex: F Assigned Patient Location: US Current Patient Location: LAB Accession/Order Number: [id number] Exam Date: 04/05/2025 10:00 Report Date: 04/05/2025 [...] Peraza M.D. 04/05/2025 12:08 PM Dictation Location: [place] [address] Electronically authenticated by: [id number] Y Date: 2:08 Dictated By: Daryn Peraza D.O. Signed By:04/05/25 1211 DD/ 1208 TD/TT: Crane Hoist Or Lift Operator: Authorizing ProviderResult TypeResult StatusRegina Cummins PACLSPOTSYLVANIA REGIONAL [facility] IMAGINGFinal Result * (ABNORMAL) ALL CBC WITH AUTO DIFF (04/05/2025 10:33 AM EDT)ComponentValueRef RangeTest MethodAnalysis TimePerformed AtPathologist SignatureTBH WBC11.04.0 - 11.0 10 3/uLTBHTBH RBC3.47(L)4.20 - 5.40 10 6/uLTBHTBH HGB10.3(L)12.0 - 16.0 g/dLTBHTBH HCT30.7(L)36.0 - 48.0 %TBHTBH MCV88.581.0 - 99.0 fLTBHTBH MCH29.7 26.7 - 34.0 pgTBHTBH MCHC33.629.9 - 35.2 g/dLTBHTBH RDW12.811.0 - 15.0 %TBHTBH FZL937384 - 450 10 3/uLTBHTBH MPV8.7(L)9.5 - 13.5 [...] 10:47 AM EDT Authorizing ProviderResult TypeResult StatusAmy [place] PACLINISYNCFinal Result Performing OrganizationAddressCity/State/ZIP CodePhone Number [facility]IS[facility]NC [facility] * URINARY TRACT INFECTION (HTRX) (04/03/2025 3:53 PM EDT)ComponentValueRef Range Test MethodAnalysis TimePerformed AtPathologist SignatureLAURA NICKERSONII019.961 - 24.689 [facility]04/04/2025 7:51 AM EDTHealthTrackRx at LabPort ACINETOBACTER BAUMANIINot Axzuredc30.961 - 24.689 ppm04/04/2025 7:51 AM EDT [facility] at LabPortCITROBACTER SZCKGZHB342.000 - 32.015 ppm04/04/2025 7:51 AM EDTHealthTrackRx at LabPortCITROBACTER FREUNDIINot Jqbreojp21.000 - 32.015 ppm04/04/2025 7:51 AM EDTHealthTrackRx at LabPortENTEROBACTER AEROGENES, CXSQICD108.000 - 32.290 ppm04/04/2025 7:51 AM EDTHealthTrackRx at LabPortENTEROBACTER AEROGENES, CLOACAENot Fepjiyji71.000 - 32.290 ppm 04/04/2025 7:51 AM EDTHealthTrackRx at LabPortENTEROCOCCUS FAECALIS, FAECIUM0 26.000 - 33.043 ppm04/04/2025 7:51 AM EDTHealthTrackRx at LabPortENTEROCOCCUS FAECALIS, FAECIUMNot Dpjbwrgb41.000 - 33.043 ppm04/04/2025 7:51 AM EDT [facility] at LabPortESCHERICHIA ZBLX198.000 - 28.500 ppm04/04/2025 7:51 AM EDTHealthTrackRx at LabPortESCHERICHIA COLINot Ynjoqnmy07.000 - 28.500 ppm 04/04/2025 7:51 AM EDTHealthTrackRx at LabPortKLEBSIELLA PNEUMONIAE, OXYTOCA0 23.000 - 31.865 ppm04/04/2025 7:51 AM EDTHealthTrackRx at LabPortKLEBSIELLA PNEUMONIAE, OXYTOCANot Upomndfk03.000 - 31.865 ppm04/04/2025 7:51 AM EDT [facility] at LabPortMORGANELLA NWZDPRFR612.961 - 24.689 ppm04/04/2025 7:51 AM EDTHealthTrackRx at LabPortMORGANELLA MORGANIINot Sbajzcls92.961 - 24.689 ppm04/04/2025 7:51 AM EDTHealthTrackRx at LabPortPROTEUS MIRABILIS, VULGARIS0 23.000 - 28.500 ppm04/04/2025 7:51 AM EDTHealthTrackRx at LabPortPROTEUS MIRABILIS, VULGARISNot Jmfszuxn46.000 - 28.500 ppm04/04/2025 7:51 AM EDT [facility] at LabPortPSEUDOMONAS YFBGZHHKNI916.000 - 31.801 ppm04/04/2025 7:51 AM EDTHealthTrackRx at LabPortPSEUDOMONAS AERUGINOSANot Esvmcmjf37.000 - 31.801 ppm04/04/2025 7:51 AM EDTHealthTrackRx at LabPortSTAPHYLOCOCCUS AUREUS0 26.000 - 31.595 ppm04/04/2025 7:51 AM EDTHealthTrackRx at [facility] STAPHYLOCOCCUS AUREUSNot Rwwcrjqx09.000 - 31.595 ppm04/04/2025 7:51 AM EDT [facility] at LabPortSTREPTOCOCCUS AGALACTIAE (GROUP B STREP)026.000 - 32.435 ppm04/04/2025 7:51 AM EDTHealthTrackRx at LabPortSTREPTOCOCCUS AGALACTIAE (GROUP B STREP)Not Dvlfvbis78.000 - 32.435 ppm04/04/2025 7:51 AM EDTHealthTrackRx at LabPortCANDIDA ALBICANS, PARAPSILOSIS, YJZGPJEKLG925.000 - 30.347 ppm04/04/2025 7:51 AM EDTHealthTrackRx at LabPortCANDIDA ALBICANS, PARAPSILOSIS, TROPICALISNot Wcgdoidw36.000 - 30.347 ppm04/04/2025 7:51 AM EDT [facility] at LabPortCANDIDA HQYCTUJG908.000 - 31.618 ppm04/04/2025 7:51 AM EDTHealthTrackRx at LabPortCANDIDA GLABRATANot Tnulrlkd97.000 - 31.618 ppm 04/04/2025 7:51 AM EDTHealthTrackRx at LabPortCANDIDA MSENRH328.000 - 30.873 ppm04/04/2025 7:51 AM EDTHealthTrackRx at LabPortCANDIDA KRUSEINot Detected 23.000 - 30.873 ppm04/04/2025 7:51 AM EDTHealthTrackRx at LabPortSERRATIA PWCOENPVRK469.000 - 31.581 ppm04/04/2025 7:51 AM EDTHealthTrackRx at [facility] SERRATIA MARCESCENSNot Zebthpkd09.000 - 31.581 ppm04/04/2025 7:51 AM EDT [facility] CenterSTREPTOCOCCUS PYOGENES (GROUP A STREP)019.961 - 24.689 ppm04/04/2025 7:51 AM EDTHealthTrackRx at LabFranc[facility] IndianapolisSTREPTOCOCCUS PYOGENES (GROUP A STREP)Not Orehubwh21.961 - 24.689 ppm04/04/2025 7:51 AM EDTHealthTrackRx at [facility] CenterSTAPHYLOCOCCUS EPIDERMIDIS, HAEMOLYTICUS, LUGDUNENSIS, SAPROPHYTICUS (TANMV661.961 - 24.689 ppm04/04/2025 7:51 AM EDTHealthTrackRx at [facility] STAPHYLOCOCCUS EPIDERMIDIS, HAEMOLYTICUS, LUGDUNENSIS, SAPROPHYTICUS (URINANot Rylzfmql91.961 - 24.689 ppm04/04/2025 7:51 AM EDTHealthTrackRx at [facility] STAPHYLOCOCCUS EPIDERMIDIS, HAEMOLYTICUS, LUGDUNENSIS, SAPROPHYTICUS (URINA0 19.961 - 24.689 ppm04/04/2025 7:51 AM EDTHealthTrackRx at [facility]Franc[facility] STAPHYLOCOCCUS EPIDERMIDIS, HAEMOLYTICUS, LUGDUNENSIS, SAPROPHYTICUS (URINANot Haqjwfan71.961 - 24.689 ppm04/04/2025 7:51 AM EDTHealthTrackRx at [facility] Specimen (Source)Anatomical Location / LateralityCollection Method / Volume Collection TimeReceived UqayTanjf73/11/2025 3:53 PM EDT04/04/2025 1:35 AM EDT Narrative Authorizing ProviderResult TypeResult StatusAmy [facility] BLOOD ORDERABLES Final ResultPerforming OrganizationAddressCity/State/ZIP CodePhone Number [facility] LabFrancisc[facility] [address] [address] from Last 3 Months Additional Health Concerns Active ProblemsNoted DateDiagnosed DateOB Btqctncgz68/09/2025 Insurance
--- OUTSIDE RECORDS SUMMARY | 2025-05-17 08:16 | XMS_ITS | Clinical Summary ---
Author Organization [facility] Address [address] [place] [address] Care Team Providers Care Dining Room Maid Name Role Phone Ynes Mistry TELEHEALTH NURSE Primary Care Provider Allergies No known active [...] anemia s/p -hgb 10.8 per recent labs Ipuxveludfey89/28/2023 Assessment & Plan (03/30/2023 1:01 PM EDT): - 30-day event monitor - we will hold off on starting medication until follow-up Abnormal glucose levelHeartburn Gfldzymwewh81yspareunia in qksuyc29Frequent UTInxiety Assessment & Plan (03/30/2023 1:01 PM EDT): - takes sertraline 50 mg daily Seasonal allergic oibpfffi08Insomnia due to other mental xgpawjgz97Other kgorqze66 Assessment & Plan (03/30/2023 1:02 PM EDT): - could be related to being , anemia -monitor and echo to rule out cardiac concern Encounters DateTypeDepartmentCare WrmbHdzplwmwews04/05/2025Telephone [facility] at [facility] [address] [place] [address] Cailin Ryan MA from Last 3 Months Family History Medical HistoryRelationNameCommentsHyperlipidemiaFatherSupraventricular tachycardiaFatherAnemiaMotherDiabetesSisterRelationNameStatusCommentsFather MotherSister Social History Tobacco UseTypesPacks/DayYears UsedDateSmoking Tobacco: NeverSmokeless Tobacco: Never Tobacco Cessation:Counseling Given: Not Answered Alcohol UseStandard Drinks/WeekCommentsNot Currently0 (1 standard drink = 0.6 oz pure alcohol)MA Safety & EnvironmentAnswerDate RecordedFear of Current or Ex-PartnerNot on file09/15/2023Emotionally AbusedNot on file09/15/2023hysically AbusedNot on file09/15/2023Sexually AbusedNot on file09/15/2023hysically or Sexually AbusedNot on file09/15/2023CommentsUnknownSex and Gender InformationValueDate RecordedSex Assigned at BirthNot on fileLegal SexFemale 03/17/2023 11:34 AM EDTGender IdentityNot on fileSexual OrientationNot on file Last Filed Vital Signs Vital SignReadingTime TakenCommentsBlood Lwcjlrje463/7607/11/2023 4:27 PM EST Nhjrt831507/11/2023 4:27 PM ESTTemperature--Respiratory Rate--Oxygen Ivuyifaxkb07% 07/11/2023 4:27 PM ESTInhaled Oxygen Concentration--Wlttzr82.7 kg (211 lb) 07/11/2023 4:27 PM XNWOqsyzt785.6 cm (5' 6 )07/11/2023 4:27 PM ESTBody Mass Index34.0607/11/2023 4:27 PM EST Plan of Treatment Health MaintenanceDue DateLast DoneCommentsDepression Keqfdkrzz12/17/2011dult Mxcbabn57/COVID-19 Vaccine (3 - 2024- season)2025 12/29/2020, 12/07/2020Influenza Vaccine (#1)2025Pap Smear04/18/2025 04/18/2022Zoster Vaccines (1 of 2)9002/09/2011, 12/22/1999HIB Vaccines Nohtfhdqs61/21/2000, 03/12/1999, 01/18/1999, Additional history existsIPV AowlzzltHtefcdfrb39/29/2004, 03/13/2000, 01/18/1999, Additional history exists Varicella NtjlgyoeTinzqaked52/20/2011, 12/22/1999Meningococcal VaccineCompleted 03/11/2016, 2014, 01/12/2011HPV TinxynymGwvlanbml75/28/2018, 05/01/2017, 02/24/2017Meningococcal B VaccineAged OutNo longer eligible based on patient's age to complete this topicPneumococcal Vaccine: Pediatrics (0 to 5 Years) and At-Risk Patients (6 to 64 Years)Aged OutNo longer eligible based on patient's age to complete this topicRotavirus VaccinesAged OutNo longer eligible based on patient's age to complete this topic Insurance Care Teams Team MemberRelationshipSpecialtyStart DateEnd Date Ynes Mistry, TELEHEALTH NURSE [address] [place] [address] [facility] [address] [place] [address] [facility]03/20/23
--- OUTSIDE RECORDS SUMMARY | 2025-05-17 08:17 | XMS_ITS | Clinical Summary ---
Author Organization [facility] Address [address], [address] [place] [address] Care Team Providers Care Home Therapy Clinician Name Role Phone Ynes Mistry GENERAL CARGO CLERK - PRIMER SUPERVISOR Primary Care Provide r Allergies No known [...] [address] 200 mg vaginally miicpjb09/26/2025Active sertraline (ZOLOFT) 25 MG tablet Take 1 tablet by mouth daily 30 tablet 5Active Active Problems ProblemNoted DateDiagnosed DateGastroesophageal reflux inxrcjl4711/12/2024Other hyperlipidemia [E78.49]06/04/20241951Bpgbkct03/12/2024Hepatic fscxduhnk20/14/2024 Elevated liver lhottxv5903/01/2024Mixed ohcgjhhqhihkxk20/30/2024Iron deficiency lnqtwu2610/25/2023Gestational diabetes mellitus (GDM) affecting second 07/24/20222662Jkrlqmd06/07/2020Seasonal allergic uuoiltln87/07/2020Other fatigue 05/02/2020 Resolved Problems ProblemNoted DateDiagnosed DateResolved DateSore njijun17503/5Acne /Irregular rcosuz37/Frequent UTI11/30/2020 02/20/2024yspareunia in tesvis14/Insomnia due to other mental Encounters DateTypeDepartmentCare RhygSchlqxjqcct42/21/2025Orders Only [facility] [address] [place] [address] [address] [place], [place] [id number] ProviderYuval MD 05/01/2025Orders Only [facility] [address] [place] [address] Dr [address] [place] [address] Provider, MD Yuval from Last 3 Months Immunizations ImmunizationAdministration DatesNext DueCOVID-19, Inactive, PFIZER PURPLE top, DILUTE for use, (age 12 y+)12/29/2020,8901LNdT79/29/2004,03/13/2000, 03/12/1999,01/18/1999,1998DTaP, INFANRIX, (age 6w-6y), IM, 0.5mL11/20/2003 ,03/13/2000,03/12/1999,01/18/1999,1998HPV [...] RecordedIn the past 12 months has the [employer], [employer], [employer], or water [employer] threatened to shut off services in your home?No10/07/2024Overall Financial Resource Strain (CARDIA)AnswerDate Recorded How hard is it for you to pay for the very basics like food, housing, medical care, and heating?Not hard at all07/13/2023HQ-2AnswerDate RecordedPHQ-9 Total Nzfpk786Hunger Vital SignAnswerDate RecordedWithin the past 12 months, [...] steady place to sleep or slept in [place] (including now)?No07/13/2023Housing Stability Vital SignAnswerDate RecordedIn the last 12 months, was there a time when you were not able to pay the mortgage or rent on time?No10/07/2024In the past 12 months, how many times have you moved where you were living? At any time in the past 12 months, were you homeless or living in a chcf (including now)?No10/07/2024Food InsecurityAnswerDate RecordedWithin the past 12 months, you worried that your food would run out before you got the money to buymore.Within the past 12 months, the food you bought just didn't last and you didn't have money to get more.CommentsNoSex and Gender InformationValueDate RecordedSex Assigned at EajsbVsxwka92/28/2024 8:24 PM EDTLegal FysKoedxo88/10/2013 3:31 PM ESTGender FriissquWhgyfn41/28/2024 8:24 PM EDTSexual OrientationNot on file Last Filed Vital Signs Vital SignReadingTime TakenCommentsBlood Dcrbvaob113/7204 11:39 AM EDT Klrbh7972 11:39 AM GLIJskszkjccjv64.1 ??C (96.9 ??F)11/12/2024 11:39 AM EDTRespiratory Lrdk417710/07/2024 1:43 PM EDTOxygen Oaovvcbouz71%11/12/2024 11:39 AM EDTInhaled Oxygen Concentration--Jbdqox62.1 kg (203 lb)11/12/2024 11:39 AM HDCIoxaqh984.1 cm (5' 5 )10/07/2024 1:43 PM EDTBody Mass Index33.78010/07/2024 1:43 PM EDT Plan of Treatment Health MaintenanceDue DateLast DoneCommentsDTaP/Tdap/Td vaccine (7 - Td or Tdap) /, 11/20/2003, 11/20/2003, Additional history existsFlu vaccine (#1)5COVID-19 Vaccine (2024- season)506/02/2021, 1Depression Avlesf62601/, 08/07/2024Pap smear07/15/2027 07/15/2024, 07/15/2023, 07/05/2023, Additional history existsHepatitis B vaccine Jwzraefic00/17/1999, 1998, 1998Hib tlidfsdDxppmxttm24/21/2000, 03/12/1999, 01/18/1999, Additional history existsPolio vaccineCompleted 11/20/2003, 03/13/2000, 01/18/1999, Additional history existsVaricella vaccine Gxliqozyd52/20/2011, 12/22/1999Hepatitis A zknkednMsqwsksup91/27/2012, 08/19/2011, 02/09/2011, Additional history existsMeningococcal (ACWY) vaccine Zddazwdhi67/19/2016, 2014, 01/12/2011HPV inmjmwoBcajrvupi66/28/2018, 05/01/2017, 02/24/2017HIV brlsjrVyixpshri99/12/2020Chlamydia/GC screen Bxdqskzanaup31/29/2021, 03/03/2020, 02/21/2019, Additional history exists Hepatitis C rtsfmbXijybpbqf03/27/2024Depression MonitoringDiscontinued 08/07/2024, 08/07/20242022HrhhyoOmwrgjskbemh23/27/2025, 05/20/2024, 02/16/2024, Additional history existsMeningococcal B vaccineAged OutNo longer eligible based on patient's age to complete this topicPneumococcal 0-49 years VaccineAged Out No longer eligible based on patient's age to complete this topic Procedures Procedure NamePriorityDate/TimeAssociated DiagnosisCommentsCHG BIOPHYSICAL PROFILE NON-STRESS YPRSLXMFcxhsns18/15/2025 3:54 PM EDTBIOPHYSICAL PROFILE W/FXUVzvcwmw53/08/2025 11:39 AM EDTHM PAP TFMOSAoctdrv00/23/2024 LIPID DPBGHXbdllap40/28/2024 9:59 AM EDT Mixed hyperlipidemia HEPATITIS C EAYJOPNEJxkafwg91/27/2024 8:25 AM EDT Need for hepatitis C screening test Wellness examination C.TRACHOMATIS N.GONORRHOEAE DNA, UWPVFJmnlmil24/29/2021 1:57 PM EDT Frequent UTI HIV EFLYAKRevcqvs01/12/2020 3:27 PM EDT Encounter for screening for [...] Time07/15/2024 Narrative Authorizing ProviderResult TypeResult StatusHistorical Provider MDJOINT TOWNSH[facility] MAINTENANCEEdited Result - Final * Hepatitis C Antibody (10/18/2023 8:25 AM EDT)ComponentValueRef RangeTest MethodAnalysis TimePerformed AtPathologist SignatureHepatitis C AbNONREACTIVE TJGKKAIDNXV81/27/2024 8:25 AM EDTMERCY LABORATORIESComment: ? The hepatitis [...] / Volume Collection TimeReceived TimeBloodBLOOD SPECIMEN / Joqodny0710/18/2023 8:25 AM EDT 10/18/2023 8:26 AM EDT Narrative Authorizing ProviderResult TypeResult StatusYnes Mistry GENERAL CARGO CLERK - CNPIMMUNOLOGY ORDERABLESFinal ResultPerforming OrganizationAddressCity/State/ZIP CodePhone Number [facility] [address] [place] [address], [facility] [phone] [facility] [address] [place] [address], [facility] [phone] * C.trachomatis N.gonorrhoeae DNA, Urine (11/19/2020 1:57 PM EDT)ComponentValue Ref RangeTest MethodAnalysis TimePerformed AtPathologist SignatureSpecimen Description.URINE11/19/2020 1:57 PM EDTMERCY LABORATORIESC. trachomatis DNA ,AjxohNYDJURROSNOKNSJM54/29/2021 1:57 PM EDTMERCY LABORATORIESComment: CHLAMYDIA TRACHOMATIS DNA [...] alternative nucleic acid target. N. gonorrhoeae DNA, QrqpuRSWIGGXLDRBLFSTV67/29/2021 1:57 PM EDTMERCY LABORATORIESComment: NEISSERIA GONORRHOEAE DNA [...] / LateralityCollection Method / Volume Collection TimeReceived HvkaJewlt43/29/2021 1:57 PM EDT11/19/2020 1:57 PM EDT Narrative Authorizing ProviderResult TypeResult StatusBesilvestre Ricks APRN - PRIMER SUPERVISOR MICROBIOLOGY - GENERAL ORDERABLESFinal ResultPerforming OrganizationAddress City/State/ZIP CodePhone Number [facility] [address] [place] [address], [facility] [phone] [phone] * HIV Screen (05/04/2020 3:27 PM EDT)ComponentValueRef RangeTest MethodAnalysis TimePerformed AtPathologist SignatureHIV Ag/WyDIKQYSYQWVJJPWEXTWRARG58/12/2020 3:27 PM EDTMERCY LABORATORIESComment: No laboratory evidence of HIV infection. ??If acute HIV infection is suspected, consider testing for HIV-1 RNA. Specimen (Source)Anatomical Location / LateralityCollection Method / Volume Collection TimeReceived TimeBLOOD SPECIMEN / Daotlat7405/04/2020 3:27 PM EDT 05/04/2020 3:28 PM EDT Narrative Authorizing ProviderResult TypeResult StatusHannah M Mistry GENERAL CARGO CLERK - CNPIMMUNOLOGY ORDERABLESFinal ResultPerforming OrganizationAddressCity/State/ZIP CodePhone Number [facility] [address] [place] [address], [facility] [phone] [facility] [address] [place] [address], [facility] [phone] from Last 3 Months or Most Recently Relevant to Health Maintenance Insurance Care Teams Team MemberRelationshipSpecialtyStart DateEnd Date Ynes Mistry, JOSE J - PRIMER SUPERVISOR [address] [place] [address] [place] [address] PCP - GeneralFamily Nurse Practitioner08/02/22
[2025-05-17 08:21] VITALS: BP 119/57; PULSE 87
== END 2025-05-17 08:46 | disposition home or self-care (01) ==
LOC: FBCO 08:11 → FBC 08:13
PROVIDERS: PCP Nurse Practitioner Women's Health; Visit Provider Obstetrics & Gynecology
DX: O24.419 Gestational diabetes mellitus in pregnancy, unspecified control (principal); Z3A.34 34 weeks gestation of pregnancy
CPT/HCPCS: 59025

== ENCOUNTER 2025-05-21 16:06 | Outpatient (OUT) | payer OTHER, SELFPAY ==
--- OUTSIDE RECORDS SUMMARY | 2020-06-22 11:27 | XMS_ITS | Continuity of Care Document ---
Author Organization [employer] [facility] Address [address] [place] [address] Phone Care Team Providers Care Brake Reliner Name Role Phone Valerie Ernandez Unavailable Chen [...] Diagnoses Date Provider Providers Copied on Encounter [address], [address] [place], [place], [address], [place] tel:[phone] [facility] No Information Livier Padilla. [address] [place], [place], [address], [place]. tel:[phone] OFFICE/OUTPAT IENT VISIT, [facility], [address] [place] [address] [address], [place], [place], [address], tel:[phone] [facility] COVID EXPOSURE AND SYMPTOMS (chief complaint) Body achesFatigue, unspecified typeExposure to COVID-19 virus Omarkrista LUX-MUNA Padilla. [address] [place], [place], [address], [place]. tel:[phone] Referring Provider: Valerie Maier APRNMUNA, [address] [place], [address] . tel:[phone] OFFICE/OUTPAT IENT VISIT, [facility], [address] [place] [address] [address], [place], [place], [address], tel:[phone] [facility] UTI (chief complaint) Dysuria Titus Albarran. [address] [place], [place], [address], [place]. tel:[phone] Referring Provider: Avis Qureshi NP, [address] [place], [address] . tel:[phone] Family History Family Member Type Diagnosis Age At Onset No Information Payers Payer name Insurance type Covered libertarian ID Bill diggs(s) Thad TODD [id number] Social History Type Description Quantity Date Captured Comments Sex Female Smoking Status No Information Chief Complaint And Reason For Visit No Information Reason For Referral Reason For Referral No Information Plan Of Treatment Date Type Action Status Future Order: Lab Order COVID 19 , RT-PCR ([id number]), Ordered on: Ordered History Of Present Illness Encounter Date Complaint History Of Prese nt Illness COVID EXPOSURE AND S YMPTOMS (comments) 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 PATIENT STATES THAT 2 PEOPLE IN HER [...] FOR COUGH WELL IF YOU ARE A [facility] STUDENT LIVING ON CAMPUS PLEASE CALL YOUR [facility] COVID HOTLINE NUMBER IS [phone] RED FLAGS THAT WOULD WARRANT ER ASSESSMENT [...] COVID CASES: COVID TESTS ARE RUN AT [facility] AND ARE TYPICALLY DONE IN 24-48 HOURS. PLEASE SIGN UP FOR THE PATIENT PORTAL THOUGH [facility] YOUR RESULTS WILL SHOW UP THERE. IF YOU DO NOT GET AN EMAIL TO SET UP YOUR PATIENT PORTAL PLEASE CALL [phone] Monday RIDAY 8:00AM 4:30PM HOW TO DISCONTINUE [...] SOMEHOW GOT RESPIRATORY DROPLETS ON YOU [email or web address] OV/HD-VJL-PGZ-SICK/QUARANTINE.HTML (UPDATED OF 05.19.2020) CONTACT YOUR LOCAL HEALTH [...] SYMPTOMS THAT ARE SEVERE OR CONCERNING. COVID-19 HOTLINE:5-037-0-ASK-ODH ( ) HOW TO HELP STOP THE [...] SECONDS. RESOURCES FOR MORE INFORMATION: [email or web address]/ OV/INDEX.HTML HTTPS://[email or web address]/PORTAL /GOV/COVID-19/HOME HTTPS://[email or web address]/CORONAVIRUS/ OV/EU-YJO-CST-SICK/GJPSY-OMMM-SMVH.HTML Related to Exposure to COVID-19 virus Increase fluids and rest.May continue over the counter urinary pain relief. Take antibiotic completely. Return to [facility] if not improving. Related to Dysuria Assessments Type Assessment Date No Information Patient Care Teams Name Effective Dates (start - stop) Status Members No Information
--- OUTSIDE RECORDS SUMMARY | 2025-04-30 15:00 | XMS_ITS | Encounter Summary ---
Author Organization [facility] Address [address] [place] [address] Care Team Providers Care Windows Support Engineer Name Role Phone Unavailable Primary Care Provider Unavailabl e Reason for Visit * ReasonCommentsRoutine Visit Encounter Details DateTypeDepartmentCare Team (Latest Contact Info)Lzesnwyeksy96/08/2025 3:00 PM EDTRoutine [facility] [address] [place] [address] Tiffany Li, ASHWIN [address] [facility] [place] [address] Third trimester ([facility]); 32 weeks gestation of ([facility]) Social History Tobacco UseTypesPacks/DayYears UsedDateSmoking Tobacco: NeverSmokeless Tobacco: NeverAlcohol UseStandard Drinks/WeekCommentsNever0 (1 standard drink = 0.6 oz pure alcohol)Estimated Date of TqubyfliCbfgyhfoKrz27/01/2025Based on last menstrual period of 09/16/2024Sex and Gender InformationValueDate Recorded Sex Assigned at BirthNot on fileLegal WjcIsixbj29/15/2023 11:47 PM EDTGender IdentityNot on fileSexual OrientationNot on filedocumented as of this encounter Last Filed Vital Signs Vital SignReadingTime TakenCommentsBlood Cnwpzcxb567/7010 3:11 PM EDT Pulse--Temperature--Respiratory Rate--Oxygen Saturation--Inhaled Oxygen Concentration--Hjqsek513 kg (227 lb 6.4 oz)04/30/2025 3:11 PM [...] Frequent UTI 11/30/2020 23 weeks gestation of ([facility]) 02/26/2025 Elevated blood sugar level 02/26/2025 Resolved Ambulatory Problems Diagnosis Date Noted Missed period 01/13/2023 Past Medical History: Diagnosis Date GDM (gestational diabetes mellitus) ([facility]) HISTORY PAST MEDICAL HISTORY SOCIAL HISTORY Past Medical History: Diagnosis Date GDM (gestational diabetes mellitus) ([facility]) Social History Tobacco Use Smoking status: Never [...] nursing note reviewed. Exam conducted with a anesthesia director present. Vitals: Estimated body mass index is 36.7 kg/m?? as calculated from the following: Height as of 01/30/23: 5' 6 . Weight as of this encounter: 227 lb 6.4 oz. BP: 110/70 Patient's last menstrual period was 09/16/2024. ASSESSMENT & PLAN ICD-10-CM 1. Third trimester ([facility]) Z34.93 2. 32 weeks gestation of ([facility]) Z3A.32 POCT urinalysis dipstick manually resulted Return [...] Plan of Treatment DateTypeDepartmentCare Team (Latest Contact Info)Tiajeakmett88/05/2025 2:00 PM ESTAncillary Procedure [facility] [address] [place] [address] [place] [phone] 05/28/2025 2:30 PM ESTRoutine [facility] SANTO [address] [facility] [place] [phone] Regina Barton PA [address] [facility] [place] [address] 07/28/2025 4:00 PM ESTOffice Visit NOMRenzo SANTO [address] [place] [address] [place] [address] Mukul Foy DO [address] [facility] [address] [place], [place] [phone] documented as of this encounter Goals GoalPatient Goal TypeAssociated ProblemsRecent ProgressPatient-Stated?Author Reminders Care PlanOB RemindersNoOpen Scheduling, Backgrounddocumented as of this encounter Procedures Procedure NamePriorityDate/TimeAssociated DiagnosisCommentsPOCT URINALYSIS YSDDJJDFLqsnpfg29/08/2025 3:19 PM EDT 32 weeks gestation of ([facility]) documented in this encounter [...] / LateralityCollection Method / VolumeCollection Time Received EybeQbdet05/08/2025 3:19 PM EDT Narrative Authorizing ProviderResult TypeResult StatusTiffany Li NPPOINT OF CARE TEST ENTER/EDIT ORDERABLESFinal Result documented in this encounter Visit Diagnoses Diagnosis Third trimester ([facility]) state, incidental 32 weeks gestation of ([facility]) documented in this encounter Additional Health Concerns Active ProblemsNoted DateDiagnosed DateOB Ipgewuxpf40/09/2025 documented as of this encounter
--- OUTSIDE RECORDS SUMMARY | 2025-05-14 14:50 | XMS_ITS | Encounter Summary ---
Author Organization [facility] Address [address] [place] [address] Care Team Providers Care Transitional Studies Instructor Name Role Phone Unavailable Primary Care Provider Unavailabl e Reason for Visit * ReasonCommentsRoutine Visit Encounter Details DateTypeDepartmentCare Team (Latest Contact Info)Hfgpmzmewub67/22/2025 2:50 PM EDTRoutine [facility] [address] [place] [address] Mukul Foy DO [address] [facility] [address] [place], [place] [phone] Third trimester ([facility]); 34 weeks gestation of ([facility]); Insulin controlled gestational diabetes mellitus (GDM) during , antepartum ([facility]); Gestational diabetes mellitus (GDM), antepartum, gestational diabetes method of control unspecified([facility]) Social History Tobacco UseTypesPacks/DayYears UsedDateSmoking Tobacco: NeverSmokeless Tobacco: NeverAlcohol UseStandard Drinks/WeekCommentsNever0 (1 standard drink = 0.6 oz pure alcohol)Estimated Date of JjtahhoaKzwqwrmkUxs43/01/2025Based on last menstrual period of 09/16/2024Sex and Gender InformationValueDate Recorded Sex Assigned at BirthNot on fileLegal BeqNvxvka39/15/2023 11:47 PM EDTGender IdentityNot on fileSexual OrientationNot on filedocumented as of this encounter Last Filed Vital Signs Vital SignReadingTime TakenCommentsBlood Tnbucwvl511/7010 3:05 PM EDT Pulse--Temperature--Respiratory Rate--Oxygen Saturation--Inhaled Oxygen Concentration--Jfxnpm505 kg (232 lb 1.9 oz)05/14/2025 3:05 PM [...] Frequent UTI 11/30/2020 23 weeks gestation of ([facility]) 02/26/2025 Elevated blood sugar level 02/26/2025 Resolved Ambulatory Problems Diagnosis Date Noted Missed period 01/13/2023 Past Medical History: Diagnosis Date GDM (gestational diabetes mellitus) ([facility]) HISTORY PAST MEDICAL HISTORY SOCIAL HISTORY Past Medical History: Diagnosis Date GDM (gestational diabetes mellitus) ([facility]) Social History Tobacco Use Smoking status: Never [...] nursing note reviewed. Exam conducted with a scientific photographer present. Vitals: Estimated body mass index is 37.47 kg/m?? as calculated from the following: Height as of 01/30/23: 5' 6 . Weight as of this encounter: 232 lb 1.9 oz. BP: 110/70 Patient's last menstrual period was 09/16/2024. Assessment/Plan ICD-10-CM 1. Third trimester ([facility]) Z34.93 2. 34 weeks gestation of ([facility]) Z3A.34 POCT urinalysis dipstick manually resulted Return [...] Plan of Treatment DateTypeDepartmentCare Team (Latest Contact Info)Arygkubtbtf31/05/2025 2:00 PM ESTAncillary Procedure [facility] [address] [place] [address] [place] [phone] 05/28/2025 2:30 PM ESTRoutine [facility] [address] [place] [address] [place] [phone] Regina Barton PA [address] [facility] [address] [place], [place] [phone] 07/28/2025 4:00 PM ESTOffice Visit NOMRenzo SANTO [address] [place] [address] [place] [address] Mukul Foy DO [address] [facility] [address] [place], [place] [phone] NameTypePriorityAssociated DiagnosesOrder ScheduleUS OB follow up transabdominal approachImagingRoutine Insulin controlled gestational diabetes mellitus (GDM) during , antepartum ([facility]) Expected: 05/14/2025, Expires: 09/14/2025documented as of this encounter Goals GoalPatient Goal TypeAssociated ProblemsRecent ProgressPatient-Stated?Author Reminders Care PlanOB RemindersNoOpen Scheduling, Backgrounddocumented as of this encounter Procedures Procedure NamePriorityDate/TimeAssociated DiagnosisCommentsPOCT URINALYSIS PJGGHFDIGdehbjh20/22/2025 3:13 PM EDT 34 weeks gestation of ([facility]) documented in this encounter Results * POCT [...] this encounter Visit Diagnoses Diagnosis Third trimester ([facility]) state, incidental 34 weeks gestation of ([facility]) Insulin controlled gestational diabetes mellitus (GDM) during , antepartum ([facility]) Gestational diabetes mellitus (GDM), antepartum, gestational diabetes method of control unspecified([facility]) documented in this encounter Additional Health Concerns Active ProblemsNoted DateDiagnosed DateOB Flyfuipvp34/09/2025 documented as of this encounter
--- NOTE | 2025-05-21 16:08 | US_ITS ---
[place] [id number] Patient Name: VINNY HERRERA MRN: [id number] date: 2000 Sex: F Assigned Patient Location: [facility] Current Patient Location: Accession/Order Number: [id number] Exam Date: 05/21/2025 16:12 Report Date: 05/21/2025 19:56 At the request of: BRITT HOLDER DO Procedure: US OB BPP w non-stress Ultrasound biophysical profile INDICATION: Gestational diabetes COMPARISON: 05/07/2025 FINDINGS/IMPRESSION:: Fetus cephalic position. 8/8 score biophysical profile. heart rate 139 beats per minutes. JAMAL 19.1 cm . Impression dictated by: Chevy Moreland M.D. 05/21/2025 7:56 PM Dictation Location: [place] [address] Electronically authenticated by: [id number] Y Date: 05/21/2025 19:56
--- OUTSIDE RECORDS SUMMARY | 2025-05-21 16:10 | XMS_ITS | Clinical Summary ---
Author Organization [facility] Address [address], [address] [place] [address] Care Team Providers Care Edge Cutting Machine Operator Name Role Phone Ynes Mistry FARM INSTRUCTOR - CONSTRUCTION PERSON Primary Care Provide r Allergies No known [...] [address] 200 mg vaginally vgpimbt99/26/2025Active sertraline (ZOLOFT) 25 MG tablet Take 1 tablet by mouth daily 30 tablet 5Active Active Problems ProblemNoted DateDiagnosed DateGastroesophageal reflux ndpcmrv2311/12/2024Other hyperlipidemia [E78.49]06/04/20243002Wagdvtq62/12/2024Hepatic paakouekp63/14/2024 Elevated liver beiufsk0803/01/2024Mixed qgmpxwnlgujukn45/30/2024Iron deficiency ujhjak1810/25/2023Gestational diabetes mellitus (GDM) affecting second 07/24/20222443Xpwgddo32/07/2020Seasonal allergic ebbhxpsc86/07/2020Other fatigue 05/02/2020 Resolved Problems ProblemNoted DateDiagnosed DateResolved DateSore fbexty01503/5Acne /Irregular soxvyv93/Frequent UTI11/30/2020 02/20/2024yspareunia in yqtlkx52/Insomnia due to other mental ifoltnop56 Encounters DateTypeDepartmentCare IhdhRtagnanqolm07/21/2025Orders Only [facility] Primary Care [address] [place] [address] [address] [place], [place] [id number] ProviderYuval MD 05/01/2025Orders Only [facility] Care [address] [place] [address] [address] [place] [address] Provider, MD Yuval from Last 3 Months Immunizations ImmunizationAdministration DatesNext DueCOVID-19, Inactive, PFIZER PURPLE top, DILUTE for use, (age 12 y+)12/29/2020,7680XPsR10/29/2004,03/13/2000, 03/12/1999,01/18/1999,1998DTaP, INFANRIX, (age 6w-6y), IM, 0.5mL11/20/2003 ,03/13/2000,03/12/1999,01/18/1999,1998HPV [...] RecordedIn the past 12 months has the [employer], [employer], [employer], or water [employer] threatened to shut off services in your home?No10/07/2024Overall Financial Resource Strain (CARDIA)AnswerDate Recorded How hard is it for you to pay for the very basics like food, housing, medical care, and heating?Not hard at all07/13/2023HQ-2AnswerDate RecordedPHQ-9 Total Vzsbo859Hunger Vital SignAnswerDate RecordedWithin the past 12 months, [...] steady place to sleep or slept in [place] (including now)?No07/13/2023Housing Stability Vital SignAnswerDate RecordedIn the last 12 months, was there a time when you were not able to pay the mortgage or rent on time?No10/07/2024In the past 12 months, how many times have you moved where you were living? At any time in the past 12 months, were you homeless or living in a correction (including now)?No10/07/2024Food InsecurityAnswerDate RecordedWithin the past 12 months, you worried that your food would run out before you got the money to buymore.Within the past 12 months, the food you bought just didn't last and you didn't have money to get more.CommentsNoSex and Gender InformationValueDate RecordedSex Assigned at TfmbwHqgxsc64/28/2024 8:24 PM EDTLegal TtkZjlpkg85/10/2013 3:31 PM ESTGender GfixwzhwLzcmhz74/28/2024 8:24 PM EDTSexual OrientationNot on file Last Filed Vital Signs Vital SignReadingTime TakenCommentsBlood Sgguikpo572/7204 11:39 AM EDT Oltuj4539 11:39 AM GZOMyzyrkxovqj29.1 ??C (96.9 ??F)11/12/2024 11:39 AM EDTRespiratory Ppdt733610/07/2024 1:43 PM EDTOxygen Mqpmmiwkpr31%11/12/2024 11:39 AM EDTInhaled Oxygen Concentration--Yropyi58.1 kg (203 lb)11/12/2024 11:39 AM KOTKldoku139.1 cm (5' 5 )10/07/2024 1:43 PM EDTBody Mass Index33.78010/07/2024 1:43 PM EDT Plan of Treatment Health MaintenanceDue DateLast DoneCommentsDTaP/Tdap/Td vaccine (7 - Td or Tdap) /, 11/20/2003, 11/20/2003, Additional history existsFlu vaccine (#1)5COVID-19 Vaccine (2024- season)506/02/2021, 1Depression Szhpcd95601/, 08/07/2024Pap smear07/15/2027 07/15/2024, 07/15/2023, 07/05/2023, Additional history existsHepatitis B vaccine Lvgsnenml96/17/1999, 1998, 1998Hib gpnjlqgHshkcfgrj09/21/2000, 03/12/1999, 01/18/1999, Additional history existsPolio vaccineCompleted 11/20/2003, 03/13/2000, 01/18/1999, Additional history existsVaricella vaccine Sendfwezp43/20/2011, 12/22/1999Hepatitis A silowknOoczykxdu03/27/2012, 08/19/2011, 02/09/2011, Additional history existsMeningococcal (ACWY) vaccine Ggwaddrou60/19/2016, 2014, 01/12/2011HPV ojakkvkXwhvjruck45/28/2018, 05/01/2017, 02/24/2017HIV iyfkboPsxnbqxgq06/12/2020Chlamydia/GC screen Zcnifpnnmyqk29/29/2021, 03/03/2020, 02/21/2019, Additional history exists Hepatitis C wrexcuVhpfqgfju26/27/2024Depression MonitoringDiscontinued 08/07/2024, 08/07/20249088CpsfjxCezslrmtqxlf78/27/2025, 05/20/2024, 02/16/2024, Additional history existsMeningococcal B vaccineAged OutNo longer eligible based on patient's age to complete this topicPneumococcal 0-49 years VaccineAged Out No longer eligible based on patient's age to complete this topic Procedures Procedure NamePriorityDate/TimeAssociated DiagnosisCommentsCHG BIOPHYSICAL PROFILE NON-STRESS KDPVHMQWrbisjs04/15/2025 3:54 PM EDTBIOPHYSICAL PROFILE W/QLHPygrsoj70/08/2025 11:39 AM EDTHM PAP IQOLEUkuhgxc86/23/2024 LIPID LOZHDRyszoay41/28/2024 9:59 AM EDT Mixed hyperlipidemia HEPATITIS C VIQXQBSPAxooxjt66/27/2024 8:25 AM EDT Need for hepatitis C screening test Wellness examination C.TRACHOMATIS N.GONORRHOEAE DNA, AMJUAHmypjfu59/29/2021 1:57 PM EDT Frequent UTI HIV ZKLHLOJcbbtwe29/12/2020 3:27 PM EDT Encounter for screening for [...] Time07/15/2024 Narrative Authorizing ProviderResult TypeResult StatusHistorical Provider MDHOLZER [facility] MAINTENANCEEdited Result - Final * Hepatitis C Antibody (10/18/2023 8:25 AM EDT)ComponentValueRef RangeTest MethodAnalysis TimePerformed AtPathologist SignatureHepatitis C AbNONREACTIVE JGWHOAUMNPI92/27/2024 8:25 AM EDTMERCY LABORATORIESComment: ? The hepatitis [...] / Volume Collection TimeReceived TimeBloodBLOOD SPECIMEN / Ukzgwxn6110/18/2023 8:25 AM EDT 10/18/2023 8:26 AM EDT Narrative Authorizing ProviderResult TypeResult StatusYnes Mistry FARM INSTRUCTOR - CNPIMMUNOLOGY ORDERABLESFinal ResultPerforming OrganizationAddressCity/State/ZIP CodePhone Number [facility] [address] [place] [address], [facility] [phone] [facility] [address] [place] [address], [facility] [phone] * C.trachomatis N.gonorrhoeae DNA, Urine (11/19/2020 1:57 PM EDT)ComponentValue Ref RangeTest MethodAnalysis TimePerformed AtPathologist SignatureSpecimen Description.URINE11/19/2020 1:57 PM EDTMERCY LABORATORIESC. trachomatis DNA ,MdchbNAPOZNFGKXTJRUMW72/29/2021 1:57 PM EDTMERCY LABORATORIESComment: CHLAMYDIA TRACHOMATIS DNA [...] alternative nucleic acid target. N. gonorrhoeae DNA, YgirvRKVUUYFOVJZYWZZI14/29/2021 1:57 PM EDTMERCY LABORATORIESComment: NEISSERIA GONORRHOEAE DNA [...] / LateralityCollection Method / Volume Collection TimeReceived HodtZzszz32/29/2021 1:57 PM EDT11/19/2020 1:57 PM EDT Narrative Authorizing ProviderResult TypeResult StatusBesilvestre Ricks APRN - CONSTRUCTION PERSON MICROBIOLOGY - GENERAL ORDERABLESFinal ResultPerforming OrganizationAddress City/State/ZIP CodePhone Number [facility] [address] [place] [address], [facility] [phone] [phone] * HIV Screen (05/04/2020 3:27 PM EDT)ComponentValueRef RangeTest MethodAnalysis TimePerformed AtPathologist SignatureHIV Ag/JvRFTTHXMWQAAEYVLRDKNGLI19/12/2020 3:27 PM EDTMERCY LABORATORIESComment: No laboratory evidence of HIV infection. ??If acute HIV infection is suspected, consider testing for HIV-1 RNA. Specimen (Source)Anatomical Location / LateralityCollection Method / Volume Collection TimeReceived TimeBLOOD SPECIMEN / Ypgupqo2605/04/2020 3:27 PM EDT 05/04/2020 3:28 PM EDT Narrative Authorizing ProviderResult TypeResult StatusHannah M Mistry FARM INSTRUCTOR - CNPIMMUNOLOGY ORDERABLESFinal ResultPerforming OrganizationAddressCity/State/ZIP CodePhone Number [facility] [address] [place] [address], [facility] [phone] [facility] [address] [place] [address], [facility] [phone] from Last 3 Months or Most Recently Relevant to Health Maintenance Insurance Care Teams Team MemberRelationshipSpecialtyStart DateEnd Date Ynes Mistry, JOSE J - CONSTRUCTION PERSON [address] [place] [address] [place] [address] PCP - GeneralFamily Nurse Practitioner08/02/22
--- OUTSIDE RECORDS SUMMARY | 2025-05-21 16:10 | XMS_ITS | Clinical Summary ---
Author Organization [facility] Healthcare Address [address] [place] [address] Care Team Providers Care Votator Machine Operator Name Role Phone Unavailable Primary Care Provider Unavailabl e Allergies No known active allergies Medications MedicationSigDispense QuantityRefillsLast FilledStart DateEnd DateStatus sertraline (Zoloft) 50 MG tablet Indications:Anxiety, generalizedTAKE 1 TABLET BY MOUTH EVERY DAY IN THE MORNING 30 tablet 304/5Active glucose blood test strip Indications:Gestational diabetes mellitus (GDM), antepartum, gestational diabetes method of control unspecified([facility])Use as instructed 100 each 1206//145237/6Active metFORMIN XR (Glucophage-XR) 500 MG 24 hr tablet Indications:Second trimester ([facility]),20 weeks gestation of ([facility])Take 2 tablets (1,000 mg) by mouth in the evening. Take with meals 60 tablet 507//475016/6Active pantoprazole (Protonix) 40 MG EC tablet Indications:23 weeks gestation of ([facility]),Elevated blood sugar level ,Gastroesophageal reflux disease without esophagitisTake 1 tablet (40 mg) by mouth in the morning. Take before meals. Do not crush, chew, or split. 30 tablet 1108//517237/6Active metoclopramide (Reglan) 10 MG tablet Indications:Gastroesophageal reflux disease without esophagitisTake 1 tablet (10 mg) by mouth in the morning and 1 tablet (10 mg) at noon and 1 tablet (10 mg) in the evening. Take before meals. Take 1 tablet by mouth 30 minutes prior to meals 3 times daily as needed for nausea. 90 tablet 5Active insulin pen needle 29G x 8mm [facility] Indications:Insulin controlled gestational diabetes mellitus (GDM) during , antepartum ([facility])Inject 1 each under the skin [...] Problems ProblemNoted DateDiagnosed Date23 weeks gestation of ([facility]) 02/26/2025Elevated blood sugar level02/26/2025bnormal glucose level01/13/2023 Nobnrqgqj21/23/8614Ssezoliboam65/23/2023Dyspareunia in bkzoym4611/30/2020Frequent UTI11/30/20201462Awfaxqx47/07/2020Insomnia due to other mental dmktelek99/10/2020 Other uqmpead5605/02/2020Estimated Date of KstghvvbDnyzubprEit38/01/2025 Based on last menstrual period of 09/16/2024 Resolved Problems ProblemNoted DateDiagnosed DateResolved DateMissed caneol41/ Encounters DateTypeDepartmentCare TcteFsagarcomyh76/22/2025 2:50 PM EDTRoutine [facility] [address] [place] [address] Britt Foy, DO Third trimester ([facility]); 34 weeks gestation of ([facility]); Insulin controlled gestational diabetes mellitus (GDM) during , antepartum ([facility]); Gestational diabetes mellitus (GDM), antepartum, gestational diabetes method of control unspecified([facility])05/14/2025amboo flowsheet [facility] [address] [place] [phone] Britt Foy, DO 05/02/2025bstract [facility] [address] [place] [phone] Britt Foy, DO 04/30/2025 3:00 PM EDTRoutine [facility] [address] [place] [phone] Tiffany Li, ASHWIN Third trimester ([facility]); 32 weeks gestation of ([facility])04/30/2025linisync Result Encounter NOM[facility] External Department Unsolicited Britt Foy, DO 04/30/2025amboo flowsheet [facility] [address] [place] [phone] Tiffany Li NP 04/27/20253628Uyause90/23/2025bstract [facility] [address] [place] [phone] Britt Foy, DO 04/14/2025 3:20 PM EDTRoutine [facility] [address] [place] [phone] Regina Cummins PA Third trimester ([facility]); 30 weeks gestation of ([facility])04/14/2025amboo flowsheet [facility] [address] [place] [phone] Regina Cummins PA 04/14/20253125Fgfnlr24/15/2025Telephone [facility] [address] [place] [phone] Chaz ElizabethDAFNE 04/05/2025linisync Result Encounter NOMS External Department Unsolicited Regina Cummins PA 04/05/2025linisync Result Encounter NOMS External Department Unsolicited Regina Cummins PA 04/03/2025 3:30 PM EDTRoutine [facility] [address] [place] [address] Regina Cummins PA 28 weeks gestation of ([facility]); Third trimester ([facility]); Dizziness; Gestational diabetes mellitus (GDM), antepartum, gestational diabetes method of control unspecified([facility]); History of miscarriage; Anemia, unspecified type; UTI dhjlyyja47/11/2025amboo flowsheet [facility] [address] [place] [address] Regina Cummins PA 04/02/2025Telephone [facility] [address] [place] [phone] Yasemin SuyapaYOVANA 04/01/20259503Qgzfqu74/21/2025bstract [facility] [address] [place] [phone] Britt Foy, 03/12/2025 3:50 PM EDTRoutine [facility] [address] [place] [address] Britt Foy, 25 weeks gestation of ([facility]); Second trimester ([facility]); Gastroesophageal reflux disease without rdsnxxokuyc72/20/2025amboo flowsheet [facility] [address] [place] [phone] Britt Foy, 03/03/2025bstract [facility] [address] [place] [address] Britt Fyo, DO 02/28/2025bstract [facility] [address] [place] [address] [place] [address] Britt Foy, 02/26/2025 3:30 PM EDTRoutine [facility] [place] [address] Britt Foy, 23 weeks gestation of ([facility]); Elevated blood sugar level; Gastroesophageal reflux disease without ooorqrpypso95/06/2025amboo flowsheet [facility] [place] [address] [place] [address] Britt Foy, 02/19/2025Travelfrom Last 3 Months Family History RelationNameStatusCommentsDaughterAliveFatherAliveMotherAliveSisterAlive Social History Tobacco UseTypesPacks/DayYears UsedDateSmoking Tobacco: NeverSmokeless Tobacco: Never Tobacco Cessation:Counseling Given: Not Answered Alcohol UseStandard Drinks/WeekCommentsNever0 (1 standard drink = 0.6 oz pure alcohol)Estimated Date of AiojbqmjGqypcwnrIps81/01/2025ased on last menstrual period of 09/16/2024Sex and Gender InformationValueDate RecordedSex Assigned at BirthNot on fileLegal OduShynqh27/15/2023 11:47 PM EDTGender IdentityNot on fileSexual OrientationNot on file Last Filed Vital Signs Vital SignReadingTime TakenCommentsBlood Riskqqnv566/7005/14/2025 3:05 PM EDT Pulse--Temperature--Respiratory Rate--Oxygen Saturation--Inhaled Oxygen Concentration--Gnlyds378 kg (232 lb 1.9 oz)05/14/2025 3:05 PM YZOUyblil265.6 cm (5' 6 )01/30/2023 12:12 PM EDTBody Mass Index37.4707 12:12 PM EDT Plan of Treatment DateTypeDepartmentCare Team (Latest Contact Info)Nzzwfdbjhco41/05/2025 2:00 PM ESTAncillary Procedure [facility] [place] [address] [place] [address] 05/28/2025 2:30 PM ESTRoutine NOMRenzo SANTO [address] [place] [phone] Regina Cummins PA [address] [place] [address] 07/28/2025 4:00 PM ESTOffice Visit NOMRenzo SANTO [address] [address] Britt Foy DO [address] [place] [address] Health MaintenanceDue DateLast DoneCommentsMMR Vaccines (1 of 1 - Standard series)1999DTaP/Tdap/Td Vaccines (1 - Tdap)2005Varicella Vaccines (1 of 2 - 13+ 2-dose series)2011HPV Vaccines (1 - 3-dose series)2013 Hepatitis B Vaccines (1 of 3 - 19+ 3-dose series)2017COVID-19 Vaccine ( - season)/02/2021, 12/07/2020Influenza Vaccine (#1)2025 HIB VaccinesAged OutNo longer eligible based on patient's age to complete this topicHepatitis A VaccinesAged OutNo longer eligible based on patient's age to complete this topicIPV VaccinesAged OutNo longer eligible based on patient's age to complete this topicMeningococcal B VaccineAged OutNo longer eligible based on patient's age to complete this topicMeningococcal VaccineAged OutNo longer eligible based on patient's age to complete this topicPneumococcal Vaccine: Pediatrics (0 to 5 Years) and At-Risk Patients (6 to 64 Years)Aged OutNo longer eligible based on patient's age to complete this topicRotavirus VaccinesAged Out No longer eligible based on patient's age to complete this topic Goals GoalPatient Goal TypeAssociated ProblemsRecent ProgressPatient-Stated?Author Reminders Care PlanOB RemindersNoOpen Scheduling, Background Procedures Procedure NamePriorityDate/TimeAssociated DiagnosisCommentsPOCT URINALYSIS KMMRSLSYXvmhnek05/22/2025 3:13 PM EDT 34 weeks gestation of ([facility]) US OB BPP W NON-MFPQBH1704/30/2025 10:59 PM EDT POCT URINALYSIS KYZFCHGUCbiefkq44/08/2025 3:19 PM EDT 32 weeks gestation of ([facility]) POCT URINALYSIS DJQQWVVPSbyjbbc17/22/2025 3:54 PM EDT Third trimester ([facility]) US OB HUTWGT0304/05/2025 12:08 PM EDT ALL CBC WITH AUTO MLTXJrrkuwe54/13/2025 10:33 AM EDT URINARY TRACT INFECTION (HTRX)Ccvxbdr0904/03/2025 3:53 PM EDT POCT URINALYSIS YNLSRVRNZvzjbzu94/11/2025 3:51 PM EDT 28 weeks gestation of ([facility]) Third trimester ([facility]) POCT URINALYSIS YMMBGQYAHxaoghm47/20/2025 4:14 PM EDT 25 weeks gestation of ([facility]) Second trimester ([facility]) POCT URINALYSIS POLEFLIGDtlyhzr57/06/2025 4:03 PM EDT 23 weeks gestation of ([facility]) Elevated blood sugar level from Last [...] Location / LateralityCollection Method / VolumeCollection TimeReceived HnutLnkql02/22/2025 3:13 PM EDT Narrative Authorizing ProviderResult TypeResult StatusCorey Law DOPOINT OF CARE TEST ENTER/EDIT ORDERABLESFinal Result * US OB BPP W NON-STRESS (04/30/2025 10:59 PM EDT)Anatomical Region LateralityModalityOtherSpecimen (Source)Anatomical Location / Laterality Collection Method / VolumeCollection TimeReceived Time04/30/2025 10:59 PM EDT Narrative 04/30/2025 11:02 PM EDT [facility] ?[address] ? [place] [address] ? Ultrasound Report ? Signed ? Patient: VINNY HERRERA ?MR#: [id number] ?? : 2000 ?Acct:[id number] ?? Age/Sex: 24 / F ?ADM Date: 04/30/25 ?? Loc: US ? Attending Dr: Britt Fyo D.O. ? Ordering Physician: Britt Foy D.O. ?? Date of Service: 04/30/25 ?? Procedure(s): US OB BPP w non-stress ?? Accession Number(s): [id number] ? cc: Britt Foy D.O.; Ynes Mistry CHORAL DIRECTOR ? [facility] ? [address] ? [place] [address] ? Patient Name: ?? VINNY HERRERA ? MRN: [facility]:[id number] ? date: 2000 ?Sex: F ?? Assigned Patient Location: [facility]BC ?? Current Patient Location: ? Accession/Order Number: [id number] ?? Exam Date: 04/30/2025 ??15:57 ?Report Date: [...] Dictation Location: RADIO-PC-29 ? Electronically authenticated by: [id number] ??Y ?? Date: 04/30/2025 ??22:59 ? Dictated By: ?Chevy Moreland M.D. ? Signed By: ?04/30/252301 ? DD/ 2259 ? TD/TT: ? Assembly Detailer: Procedure Note Radiology, Radiologist, MD - 04/30/2025 [place] [address] Ultrasound Report Signed Patient: VINNY HERRERA CMR#: [id number] : 2000Acct:[id number] Age/Sex: 24 / FADM Date: 04/30/25 Loc: Attending Dr: Britt Foy D.O. Ordering Physician: Britt Foy D.O. Date of Service: 04/30/25 Procedure(s): US OB BPP w non-stress Accession Number(s): [id number] cc: Britt Foy D.O.; Ynes Mistry NP The [address] [address] Patient Name: VINNY HERRERA MRN: [id number] date: 2000 Sex: F Assigned Patient Location: [facility] Current Patient Location: Accession/Order Number: [id number] Exam Date: 04/30/2025 15:57 Report Date: 04/30/2025 22:59 At the request of: BRITT FOY DO Procedure: US OB BPP w non-stress Ultrasound biophysical profile INDICATION: Gestational diabetes COMPARISON: 04/05/2025 FINDINGS/IMPRESSION:: Fetus cephalic position. 8/8 score biophysical profile. heart rate 145 beats per minutes. JAMAL 12.7 cm. Impression dictated by: Chevy Moreland M.D. 04/30/2025 10:59 PM Dictation Location: [place] [address] Electronically authenticated by: [id number] Y Date: 2:59 Dictated By: Chevy Moreland M.D. Signed By:04/30/252301 DD/ 58 TD/TT: Assembly Detailer: Authorizing ProviderResult TypeResult StatusCorevicki Foy DOCLINISYNC IMAGINGFinal Result * US OB GROWTH (04/05/2025 12:08 PM EDT)Anatomical RegionLateralityModalityOther Specimen (Source)Anatomical Location / LateralityCollection Method / Volume Collection TimeReceived Time04/05/2025 12:08 PM EDT Narrative 04/05/2025 12:11 PM EDT [facility] ?[address] ? [place] [address] ? Ultrasound Report ? Signed ? Patient: VINNY HERRERA ?MR#: [id number] ?? : 2000 ?Acct:[id number] ?? Age/Sex: 24 / F ?ADM Date: 04/05/25 ?? Loc: US ? Attending Dr: Regina Cummins ? Ordering Physician: Regina Cummins ?? Date of Service: 04/05/25 ?? Procedure(s): US OB growth ?? Accession Number(s): [id number] ? cc: Regina Cummins; Physician,Non-Staff M.D. ? [facility] ? [address] ? [place] [address] ? Patient Name: ?? VINNY HERRERA ? MRN: [id number] ? date: 2000 ?Sex: F ?? Assigned Patient Location: US ?? Current Patient Location: LAB ?? Accession/Order Number: [id number] ?? Exam Date: 04/05/2025 ??10:00 ?Report Date: [...] Dictation Location: RADIO-PC-20 ? Electronically authenticated by: [id number] ??Y ?? Date: 04/05/2025 ??12:08 ? Dictated By: ?Daryn Peraza D.O. ? Signed By: ?04/05/25 1211 ? DD/ 1208 ? TD/TT: ? Assembly Detailer: Procedure Note Radiology, Radiologist, - 04/05/2025 [place] [address] Ultrasound Report Signed Patient: VINNY HERRERA CMR#: [id number] : 2000Acct:[id number] Age/Sex: 24 FADM Date: 04/05/25 Loc: US Attending Dr: Regina Cummins Ordering Physician: Regina Cummins Date of Service: 04/05/25 Procedure(s): US OB growth Accession Number(s): [id number] cc: Regina Cummins; Physician,Non-Staff M.D. The [address] [address] Patient Name: VINNY HERRERA MRN: [id number] date: 2000 Sex: F Assigned Patient Location: US Current Patient Location: LAB Accession/Order Number: [id number] Exam Date: 04/05/2025 10:00 Report Date: 04/05/2025 [...] Peraza M.D. 04/05/2025 12:08 PM Dictation Location: [facility] FundingWHITMAN H[facility] AND MEDICAL CENTERPetco Electronically authenticated by: [id number] Y Date: 2:08 Dictated By: Daryn Peraza D.O. Signed By:04/05/25 1211 DD/ 1208 TD/TT: Assembly Detailer: Authorizing ProviderResult TypeResult StatusAmy [facility] IMAGINGFinal Result * (ABNORMAL) ALL CBC WITH AUTO DIFF (04/05/2025 10:33 AM EDT)ComponentValueRef RangeTest MethodAnalysis TimePerformed AtPathologist SignatureTBH WBC11.04.0 - 11.0 10 3/uLTBHTBH RBC3.47(L)4.20 - 5.40 10 6/uLTBHTBH HGB10.3(L)12.0 - 16.0 g/dLTBHTBH HCT30.7(L)36.0 - 48.0 %TBHTBH MCV88.581.0 - 99.0 fLTBHTBH MCH29.7 26.7 - 34.0 pgTBHTBH MCHC33.629.9 - 35.2 g/dLTBHTBH RDW12.811.0 - 15.0 %TBHTBH UCD258987 - 450 10 3/uLTBHTBH MPV8.7(L)9.5 - 13.5 [...] G PACLINISYNCFinal Result Performing OrganizationAddressCity/State/ZIP CodePhone Number [facility] * URINARY TRACT INFECTION (HTRX) (04/03/2025 3:53 PM EDT)ComponentValueRef Range Test MethodAnalysis TimePerformed AtPathologist SignatureACINETOBACTER IFUTMVYJ653.961 - 24.689 ppm04/04/2025 7:51 AM EDTHealth[facility]Rx [facility] ACINETOBACTER BAUMANIINot Wxgblhjv41.961 - 24.689 ppm04/04/2025 7:51 AM EDT [facility] LabPortCITROBACTER UCVWSCSL495.000 - 32.015 ppm04/04/2025 7:51 AM EDTHealthTrackRx at LabPortCITROBACTER FREUNDIINot Qttnzcoz81.000 - 32.015 ppm04/04/2025 7:51 AM EDTHealthTrackRx at LabPortENTEROBACTER AEROGENES, CTNSXVD443.000 - 32.290 ppm04/04/2025 7:51 AM EDTHealthTrackRx at LabPortENTEROBACTER AEROGENES, CLOACAENot Zgrdmxlg36.000 - 32.290 ppm 04/04/2025 7:51 AM EDTHealthTrackRx at LabPortENTEROCOCCUS FAECALIS, FAECIUM0 26.000 - 33.043 ppm04/04/2025 7:51 AM EDTHealthTrackRx at LabPortENTEROCOCCUS FAECALIS, FAECIUMNot Rmzeyxxa70.000 - 33.043 ppm04/04/2025 7:51 AM EDT [facility] at LabPortESCHERICHIA SKPN292.000 - 28.500 ppm04/04/2025 7:51 AM EDTHealthTrackRx at LabPortESCHERICHIA COLINot Kvzgtclu06.000 - 28.500 ppm 04/04/2025 7:51 AM EDTHealthTrackRx at LabPortKLEBSIELLA PNEUMONIAE, OXYTOCA0 23.000 - 31.865 ppm04/04/2025 7:51 AM EDTHealthTrackRx at LabPortKLEBSIELLA PNEUMONIAE, OXYTOCANot Xtrqvltj92.000 - 31.865 ppm04/04/2025 7:51 AM EDT [facility] at LabPortMORGANELLA EXMRREQT773.961 - 24.689 ppm04/04/2025 7:51 AM EDTHealthTrackRx at LabPortMORGANELLA MORGANIINot Naukzyco05.961 - 24.689 ppm04/04/2025 7:51 AM EDTHealthTrackRx at LabPortPROTEUS MIRABILIS, VULGARIS0 23.000 - 28.500 ppm04/04/2025 7:51 AM EDTHealthTrackRx at LabPortPROTEUS MIRABILIS, VULGARISNot Pnvtcxia48.000 - 28.500 ppm04/04/2025 7:51 AM EDT [facility] at LabPortPSEUDOMONAS CYVCWYUWGH787.000 - 31.801 ppm04/04/2025 7:51 AM EDTHealthTrackRx at LabPortPSEUDOMONAS AERUGINOSANot Giobyjwz11.000 - 31.801 ppm04/04/2025 7:51 AM EDTHealthTrackRx at LabPortSTAPHYLOCOCCUS AUREUS0 26.000 - 31.595 ppm04/04/2025 7:51 AM EDTHealthTrackRx at [facility] STAPHYLOCOCCUS AUREUSNot Orzgmvvi81.000 - 31.595 ppm04/04/2025 7:51 AM EDT [facility] at LabPortSTREPTOCOCCUS AGALACTIAE (GROUP B STREP)026.000 - 32.435 ppm04/04/2025 7:51 AM EDTHealthTrackRx at LabPortSTREPTOCOCCUS AGALACTIAE (GROUP B STREP)Not Kfyaveax88.000 - 32.435 ppm04/04/2025 7:51 AM EDTHealthTrackRx at LabPortCANDIDA ALBICANS, PARAPSILOSIS, TPTSOYVBDK399.000 - 30.347 ppm04/04/2025 7:51 AM EDTHealthTrackRx at LabPortCANDIDA ALBICANS, PARAPSILOSIS, TROPICALISNot Tdcdiahb99.000 - 30.347 ppm04/04/2025 7:51 AM EDT [facility] LabPortCANDIDA RZHZRTIC726.000 - 31.618 ppm04/04/2025 7:51 AM EDTHealthTrackRx at LabPortCANDIDA GLABRATANot Dzqfxlly31.000 - 31.618 ppm 04/04/2025 7:51 AM EDTHealthTrackRx at LabPortCANDIDA AYOGSQ827.000 - 30.873 ppm04/04/2025 7:51 AM EDTHealthTrackRx at LabPortCANDIDA KRUSEINot Detected 23.000 - 30.873 ppm04/04/2025 7:51 AM EDTHealthTrackRx at LabPortSERRATIA BNVESSOBCU873.000 - 31.581 ppm04/04/2025 7:51 AM EDTHealth[facility] at [facility] SERRATIA MARCESCENSNot Sopstynl56.000 - 31.581 ppm04/04/2025 7:51 AM EDT [facility] at LabPortSTREPTOCOCCUS PYOGENES (GROUP A STREP)019.961 - 24.689 ppm04/04/2025 7:51 AM EDTHealthTrackRx at LabPortSTREPTOCOCCUS PYOGENES (GROUP A STREP)Not Ogdcaiwz40.961 - 24.689 ppm04/04/2025 7:51 AM EDTHealthTrackRx at LabPortSTAPHYLOCOCCUS EPIDERMIDIS, HAEMOLYTICUS, LUGDUNENSIS, SAPROPHYTICUS (IJVGR779.961 - 24.689 ppm04/04/2025 7:51 AM EDTHealth[facility] STAPHYLOCOCCUS EPIDERMIDIS, HAEMOLYTICUS, LUGDUNENSIS, SAPROPHYTICUS (URINANot Lcsemvbc09.961 - 24.689 ppm04/04/2025 7:51 AM EDTHealthTrackRx at [facility] STAPHYLOCOCCUS EPIDERMIDIS, HAEMOLYTICUS, LUGDUNENSIS, SAPROPHYTICUS (URINA0 19.961 - 24.689 ppm04/04/2025 7:51 AM EDTHealthTrackRx at [facility] STAPHYLOCOCCUS EPIDERMIDIS, HAEMOLYTICUS, LUGDUNENSIS, SAPROPHYTICUS (URINANot Jegebihl99.961 - 24.689 ppm04/04/2025 7:51 AM EDTHealthTrackRx at [facility] Specimen (Source)Anatomical Location / LateralityCollection Method / Volume Collection TimeReceived XxmeCnktd35/11/2025 3:53 PM EDT04/04/2025 1:35 AM EDT Narrative Authorizing ProviderResult TypeResult StatusAmy Maria G CASILLAS BLOOD ORDERABLES Final ResultPerforming OrganizationAddressCity/State/ZIP CodePhone Number [facility] [address] [place] [address] from Last 3 Months Additional Health Concerns Active ProblemsNoted DateDiagnosed DateOB Ntzmqkpjy32/09/2025 Insurance
--- OUTSIDE RECORDS SUMMARY | 2025-05-21 16:10 | XMS_ITS | Clinical Summary ---
Author Organization [facility] Address [address] [place] [address] Care Team Providers Care Process Pumper Name Role Phone Ynes Mistry HATCH SUPERVISOR Primary Care Provider Allergies No known active [...] anemia s/p -hgb 10.8 per recent labs Dlwybsrnhoyc61/28/2023 Assessment & Plan (03/30/2023 1:01 PM EDT): - 30-day event monitor - we will hold off on starting medication until follow-up Abnormal glucose level/5006Hwdgneokl63 Cbahxuehruo56yspareunia in dtwpnj16Frequent UTInxiety Assessment & Plan (03/30/2023 1:01 PM EDT): - takes sertraline 50 mg daily Seasonal allergic mjprkwvx86Insomnia due to other mental tlnzuwss49Other salgqej91 Assessment & Plan (03/30/2023 1:02 PM EDT): - could be related to being , anemia -monitor and echo to rule out cardiac concern Encounters DateTypeDepartmentCare JcpxCxvcxkxcyth14/05/2025Telephone [facility] at [facility] [address] [place] [address] Cailin Ryan MA from Last 3 Months Family History Medical HistoryRelationNameCommentsHyperlipidemiaFatherSupraventricular tachycardiaFatherAnemiaMotherDiabetesSisterRelationNameStatusCommentsFather MotherSister Social History Tobacco UseTypesPacks/DayYears UsedDateSmoking Tobacco: NeverSmokeless Tobacco: Never Tobacco Cessation:Counseling Given: Not Answered Alcohol UseStandard Drinks/WeekCommentsNot Currently0 (1 standard drink = 0.6 oz pure alcohol)PA Safety & EnvironmentAnswerDate RecordedFear of Current or Ex-PartnerNot on file09/15/2023Emotionally AbusedNot on file09/15/2023hysically AbusedNot on file09/15/2023Sexually AbusedNot on file09/15/2023hysically or Sexually AbusedNot on file09/15/2023CommentsUnknownSex and Gender InformationValueDate RecordedSex Assigned at BirthNot on fileLegal SexFemale 03/17/2023 11:34 AM EDTGender IdentityNot on fileSexual OrientationNot on file Last Filed Vital Signs Vital SignReadingTime TakenCommentsBlood Djjvljdp459/7607/11/2023 4:27 PM EST Uzxzj282807/11/2023 4:27 PM ESTTemperature--Respiratory Rate--Oxygen Jyxxvuqsgq24% 07/11/2023 4:27 PM ESTInhaled Oxygen Concentration--Laecdu57.7 kg (211 lb) 07/11/2023 4:27 PM RTDXegeew854.6 cm (5' 6 )07/11/2023 4:27 PM ESTBody Mass Index34.0607/11/2023 4:27 PM EST Plan of Treatment Health MaintenanceDue DateLast DoneCommentsDepression Nkzxsvzbq87/17/2011dult Gkkclzf39/COVID-19 Vaccine (3 - 2024- season)2025 12/29/2020, 12/07/2020Influenza Vaccine (#1)2025Pap Smear04/18/2025 04/18/2022Zoster Vaccines (1 of 2)9002/09/2011, 12/22/1999HIB Vaccines Vqqdhhpyk97/21/2000, 03/12/1999, 01/18/1999, Additional history existsIPV BievusabXezafyjpc98/29/2004, 03/13/2000, 01/18/1999, Additional history exists Varicella GatemndqWfebhuymg86/20/2011, 12/22/1999Meningococcal VaccineCompleted 03/11/2016, 2014, 01/12/2011HPV BgmddtgtThhlosjoy07/28/2018, 05/01/2017, 02/24/2017Meningococcal B VaccineAged OutNo longer eligible based on patient's age to complete this topicPneumococcal Vaccine: Pediatrics (0 to 5 Years) and At-Risk Patients (6 to 64 Years)Aged OutNo longer eligible based on patient's age to complete this topicRotavirus VaccinesAged OutNo longer eligible based on patient's age to complete this topic Insurance Care Teams Team MemberRelationshipSpecialtyStart DateEnd Date Ynes Mistry, [employer]PER[employer] [address] [place] [address] [facility] [address] [place] [address] [facility]03/20/23
--- OUTSIDE RECORDS SUMMARY | 2025-05-21 16:10 | XMS_ITS | Encounter Summary ---
Author Organization [facility] Address [address], [address] [place] [address] Care Team Providers Care Senior Games Technician Name Role Phone Ynes Mistry JAVA PORTAL DEVELOPER - TELECOMMUNICATIONS LINESWORKER Primary Care Provide r Encounter Details DateTypeDepartmentCare Team (Latest Contact Info)Ewhxxjhpujl31/21/2025Orders Only [facility] [address] [place] [address] [address] [place] [phone] Provider, MD Yuval Social History Tobacco UseTypesPacks/DayYears UsedDateSmoking Tobacco: NeverSmokeless Tobacco: NeverAlcohol UseStandard Drinks/WeekCommentsNot Currently0 (1 standard drink = 0.6 oz pure alcohol)[facility] UtilitiesAnswerDate RecordedIn the past 12 months has the electric, gas, oil, or water company threatened to shut off services in your home?No10/07/2024Overall Financial Resource Strain (CARDIA)AnswerDate RecordedHow hard is it for you to pay for the very basics like food, housing, medical care, and heating?Not hard at all07/13/2023HQ-2AnswerDate RecordedPHQ-9 Total Nwvxv916Hunger Vital SignAnswerDate RecordedWithin the past 12 months, [...] were you homeless or living in a care home (including now)?No10/07/2024Food InsecurityAnswerDate RecordedWithin the past 12 months, you worried that your food would run out before you got the money to buy more.Within the past 12 months, the food you bought just didn't last and you didn't have money to get more.CommentsNoSex and Gender InformationValueDate RecordedSex Assigned at VcxcaJjimke75/28/2024 8:24 PM EDTLegal HxsHygcaq50/10/2013 3:31 PM ESTGender MatkdctxSddohk40/28/2024 8:24 PM EDTSexual OrientationNot on filedocumented as of this encounter Plan of Treatment Not on file documented as of this encounter Procedures Procedure NamePriorityDate/TimeAssociated DiagnosisCommentsCHG BIOPHYSICAL PROFILE NON-STRESS MSVZRKCPedxedo71/15/2025 3:54 PM EDTdocumented in this encounter Results * CHG BIOPHYSICAL PROFILE NON-STRESS TESTING (05/07/2025 3:54 PM EDT) Narrative Authorizing ProviderResult TypeResult StatusHistorical Provider MDPR IMAGING Final Result documented in this encounter Visit Diagnoses Not on filedocumented in this encounter Care Teams Team MemberRelationshipSpecialtyStart DateEnd Date Ynes Mistry, JAVA PORTAL DEVELOPER - TELECOMMUNICATIONS LINESWORKER [address] [facility] [place] [phone] PCP - GeneralFamily Nurse Practitioner08/02/22documented as of this encounter
--- OUTSIDE RECORDS SUMMARY | 2025-05-21 16:10 | XMS_ITS | Clinical Summary ---
Author Organization [facility] Address [address] [place], [place] [phone] Care Team Providers Care Hr Recruiter Name Role Phone Unavailable Primary Care Provider Unavailabl e Allergies No known active allergies Medications MedicationSigDispense QuantityRefillsLast FilledStart DateEnd DateStatus benzonatate (TESSALON PERLE) 100 mg capsule Take 1-2 capsules every 8 hours as needed. 60 capsule 4Active Active Problems No known active problems Social History Tobacco UseTypesPacks/DayYears UsedDateSmoking Tobacco: Never Assessed CommentsUnknownSex and Gender InformationValueDate RecordedSex Assigned at Not on fileLegal AqqVtmyxq20/14/2024 10:20 AM ESTGender IdentityNot on file Sexual OrientationNot on file Plan of Treatment Health MaintenanceDue DateLast DoneCommentsPeds To Adult Transition Initial Rwjauwgiud57/17/2011Peds To Adult Transition Annual Fsvcsxcecs94/17/2013nxiety Fmlrmnbcz89/17/2017Depression Lvhnfnzaw94/17/2017HIV Vkvfxnweh85/17/2017 Hepatitis C Ptgzelogr20/17/2017Cervical Cancer Qzbrqrtkq84/17/2020DTaP,Tdap,Td Vaccine (7 - Td or Tdap), 11/20/2003, 03/13/2000, Additional history existsCovid-19 Vaccine ( season)/02/2021, 12/07/2020Influenza Vaccine (#1)2025Hepatitis B VaccineCompleted 06/09/1999, 1998, 1998HPV RdnopquGsnzctkty56/28/2018, 05/01/2017, 02/24/2017 Insurance
--- OUTSIDE RECORDS SUMMARY | 2025-05-21 16:10 | XMS_ITS | Encounter Summary ---
Author Organization [facility] Address [address] [place] [address] Care Team Providers Care Youth Agent Name Role Phone Unavailable Primary Care Provider Unavailabl e Encounter Details DateTypeDepartmentCare Team (Latest Contact Info)Xomvukawlax08/22/2025amboo flowsheet [facility] [address] [place] [address] Mukul Foy DO [address] [place], [facility] Social History Tobacco UseTypesPacks/DayYears UsedDateSmoking Tobacco: NeverSmokeless Tobacco: NeverAlcohol UseStandard Drinks/WeekCommentsNever0 (1 standard drink = 0.6 oz pure alcohol)Estimated Date of EombjfbeUwfqrzooXyl29/01/2025Based on last menstrual period of 09/16/2024Sex and Gender InformationValueDate Recorded Sex Assigned at BirthNot on fileLegal NwaYwbago95/15/2023 11:47 PM EDTGender IdentityNot on fileSexual OrientationNot on filedocumented as of this encounter Plan of Treatment DateTypeDepartmentCare Team (Latest Contact Info)Zmcrlbzlycj45/05/2025 2:00 PM ESTAncillary Procedure [facility] [address] [place] [address] 05/28/2025 2:30 PM ESTRoutine [facility] [address] [place] [phone] Regina Barton PA [address] [place], [place] [phone] 07/28/2025 4:00 PM ESTOffice Visit [facility] [address] [place] [address] Mukul Foy DO [address] [place], [place] [phone] documented as of this encounter Goals GoalPatient Goal TypeAssociated ProblemsRecent ProgressPatient-Stated?Author Reminders Care PlanOB RemindersNoOpen Scheduling, Backgrounddocumented as of this encounter Visit Diagnoses Not on filedocumented in this encounter Additional Health Concerns Active ProblemsNoted DateDiagnosed DateOB Kjdibeobp26/09/2025 documented as of this encounter
--- OUTSIDE RECORDS SUMMARY | 2025-05-21 16:13 | XMS_ITS | CCD ---
Author Organization [facility] CliniSymt Care Team Providers Care Sanitation Laborer Name Role Phone Jannette Peña I Primary [...] LAW, MUKUL R Primary Care Unavailable Fede LANDSCAPING CREW LEADER - GENERAL CLAIMS AGENT, Ynes Conner Primary Care Provide r Unavailable Primary Care Provider Unavailabl e LAW ., DR DE LA TORRE Attending Unavailable MISC, DR YAÑEZ Primary Care Unavailable YORBA LINDA, DR YELENA Henao Consulting Unavailable LAW ., [...] Unavailable MISC, DR YAÑEZ Primary Care Unavailable YORBA LINDA, DR YELENA Henao Consulting Unavailable LAW ., [...] mg oral tablet (1 source)HMG-CoA Reductase InhibitorStart: 50-74-9298wnce 1 tablet by mouth once dailyatorvastatin (LIPITOR) 10 MG tablet Take 1 tablet by mouth daily 30 tablet 5 02/20/2024 Activecephalexin 500 mg oral capsule (4 sources)Cephalosporin AntibacterialStart: 04-03-2025 End: 57-50-3039joys 1 capsule by mouth in the morning, [...] mg oral tablet (8 sources)Histamine-1 Receptor AntagonistStart: 92-94-8390eizf 1 tablet by mouth once dailycetirizine (ZYRTEC) 10 MG tablet Take 1 tablet by mouth daily 90 tablet 3 03/12/2021 ActiveStart: 15-55-8957eqix 1 tablet by mouth once daily cetirizine (ZYRTEC) 10 MG tablet Take 1 tablet by mouth daily 90 tablet 3 06/29/2020 Activedrospirenone 4 mg oral tablet (1 source)ProgestinStart: 00-51-7579yqvw 1 tablet by mouth once daily Drospirenone (SLYND) 4 MG TABS Indications: Irregular menses Take 1 tablet by mouth daily 84 tablet4 05/12/2021 Activedrospirenone 3 mg / ethinyl estradiol 0.03 mg oral tablet (9 sources)Progestin, EstrogenStart: 62-61-2140XJJKL 3-0.03 MG TABS Indications: Irregular menses TAKE 1 TABLET DAILY 84 tablet 0 05/03/2021 ActiveStart: 92-15-3762hlqm 1 tablet by mouth once dailydrospirenone-ethinyl estradiol (CHANDANA 28) 3-0.03 MG TABS Indications: Irregular menses Take 1 tablet by mouth daily 3 packet 4 03/03/2020 ActiveEthinyl Estradiol / Ferrous fumarate / Norethindrone (6 sources)EstrogenStart: 85-00-1579ZABGG FE 24 1-20 MG-MCG(24) TABS Indications: DUB (dysfunctional uterine bleeding) TAKE 1 TABLET DAILY 84 tablet 1 08/27/2018 ActiveStart: 44-66-9229vrkq 1 tablet by mouth once dailyNorethin David-Eth Estrad-FE 1-20 MG-MCG(24) TABS Indications: Irregular menses Take 1 tablet by mouth daily 28 tablet 12 05/04/2018 ActiveStart: 62-82-6558abcj 1 tablet by mouth once dailyNorethin David-Eth Estrad-FE (JUNEL FE 24) 1-20 MG- MCG(24) TABS Indications: Irregular menses Take 1 tablet by mouth daily 84 tablet 3 07/21/2017 Activefexofenadine / Pseudoephedrine (2 sources)alpha-Adrenergic Agonist, Histamine-1 Receptor Antagonist Fexofenadine-Pseudoephedrine (JOSÉ MIGUEL-D PO) Take by mouth 0 Activefluconazole 150 mg oral tablet (1 source)Azole AntifungalStart: 97-76-6748roth 1 tablet by mouth once daily as [...] pen injector (12 sources)Insulin AnalogStart: 05-14-2025 End: 47-90-1027wjoihnx glargine (Lantus SoloStar) 100 UNIT/ML pen Indications: Hyperglycemia Inject 15 Units underthe skin at bedtime FILL ACCORDING TO INSURANCE COVERAGE 3 mL 05/14/2025 06/13/2025 ActiveStart: 04-07-2025 End: 92-61-6628sepqew 10 [IU] by subcutaneous injection at bedtimeinsulin glargine (Lantus SoloStar) 100 UNIT/ML pen Indications: Hyperglycemia Inject 10 Units underthe skin at bedtime FILL ACCORDING TO INSURANCE COVERAGE 3 mL 04/07/2025 05/14/2025 Discontinued (Reorder)loratadine 10 mg oral capsule (2 sources)take 1 capsule by mouth once dailyloratadine (CLARITIN) 10 MG capsule Take 10 mg by mouth daily 0 Zyoipl15 hr metFORMIN hydrochloride 500 mg extended release oral tablet (20 sources)BiguanideStart: 02-11-2025 End: 92-12-5646ybkv 2 tablets by mouth every twenty-four hours at mealtime metFORMIN XR (Glucophage-XR) 500 MG 24 hr tablet Indications: Second trimester ([facility]) , 20 weeks gestation of ([facility]) Take 2 tablets (1,000 mg) by mouth in the evening. Take with meals 60 tablet 5 02/11/2025 08/10/2025 ActiveStart: 11-05-2024 End: 90-64-4119csau 1 tablet by mouth every twenty-four hours in the morning metFORMIN XR (Glucophage-XR) 500 MG 24 hr tablet Take 1,000 mg by mouth in the morning and 1,000 mgin the evening. 11/05/2024 02/11/2025 Discontinued (Reorder) Start: 11-05-2024 End: 46-84-6823bkaWVBJZM (GLUCOPHAGE-XR) 500 MG extended release tablet Indications: BMI 37.0-37.9, adult , Class 2 obesity with body mass index (BMI) of 37.0 to 37.9 in adult, unspecified obesity type, unspecifiedwhether serious comorbidity present TAKE 2 TABLETS BY MOUTH IN THE MORNING AND AT BEDTIME 120 tablet 5 11/05/2024 05/04/2025 ActiveStart: 04-26-2024 End: 22-82-6657mgaUEBKWZ (GLUCOPHAGE-XR) 500 MG extended release tablet Indications: BMI 37.0-37.9, adult , Class 2 obesity with body mass index (BMI) of 37.0 to 37.9 in adult, unspecified obesity type, unspecifiedwhether serious comorbidity present Take 2 tablets by mouth in the morning and at bedtime 360 tablet 1 04/26/2024 10/23/2024 Activemetoclopramide 10 mg oral tablet (17 sources)Dopamine-2 Receptor AntagonistStart: 03-12-2025 End: 01-31-3956birsdqnwpksqua (Reglan) 10 MG tablet Indications: Gastroesophageal reflux [...] 50 mg oral capsule (4 sources)Nitrofuran AntibacterialStart: 36-30-3643tskv 1 capsule by mouth once dailynitrofurantoin (MACRODANTIN) 50 MG capsule Indications: Recurrent UTI Take 1 capsule by mouth nightly 30 capsule 0 03/03/2020 Activepantoprazole 40 mg delayed release oral tablet (20 sources)Proton Pump InhibitorStart: 02-26-2025 End: 15-05-0156dlvd 1 tablet by mouth before mealtimepantoprazole (Protonix) 40 MG EC tablet Indications: 23 weeks gestation of ([facility]) , Elevated blood sugar level , Gastroesophageal reflux disease without esophagitis Take 1 tablet (40 mg)by mouth in the morning. Take before meals. Do not crush, chew, or split. 30 tablet 11 02/26/2025 02/26/2026 Activephentermine hydrochloride 37.5 mg oral tablet (1 source)Sympathomimetic Amine AnorecticStart: 05-01-2024 End: 83-66-7375qamu 37-37.9 tablets by mouth once dailyphentermine (ADIPEX-P) [...] mg oral capsule (12 sources)Start: 04-02-2025 End: 49-24-9403jazv 1 capsule by mouth once dailyiron polysaccharides (ProFe) 391.3 (180 Fe) MG capsule Indications: Dizziness Take 1 capsule (391.3mg) by mouth Daily 30 capsule 6 04/02/2025 05/02/2025 ActiveProbiotic Product (PROBIOTIC ADVANCED PO) (6 sources)Probiotic Product (PROBIOTIC ADVANCED PO) Take by mouth Active Probiotic Product (PROBIOTIC ADVANCED PO) Take by mouth 0 ActiveProgesterone (1 source)ProgesteroneStart: 21-30-0597Lliwjhcyptzi [address] 200 mg vaginally nightly 10/16/2024 ActiveProgesterone 200 MG suppository (2 sources)Start: 11-14-2024 End: 38-06-7625Ymsdzjmopojs 200 MG suppository Indications: History of miscarriage Insert 200 mg into the vagina at bedtime Insert suppository vaginally every night at bedtime until 12 weeks gestation 30 suppository 2 11/14/2024 12/14/2024 ActiveStart: 10-16-2024 End: 58-78-9539Bkrauyofmeps 200 MG suppository Indications: History of miscarriage Insert 200 mg into the vagina at bedtime Insert suppository vaginally every night at bedtime until 12 weeks gestation 30 suppository 3 10/16/2024 11/14/2024 Discontinued (Reorder)sertraline 25 mg oral tablet (20 sources)Serotonin Reuptake InhibitorStart: 02-31-1226wmja 1 tablet by mouth once dailysertraline (ZOLOFT) 25 MG tablet Take 1 tablet by mouth daily 30 tablet 5 11/12/2024 ActiveStart: 87-43-8988votu 1 tablet by mouth once daily in the morningsertraline (Zoloft) 50 MG tablet Indications: Anxiety, generalized TAKE 1 TABLET BY MOUTH EVERY DAYIN THE MORNING 30 tablet 3 10/25/2024 Active Start: 85-79-2389szyo 1 tablet by mouth once daily in the morningsertraline (Zoloft) 50 MG tablet Indications: Anxiety, generalized (CMS/HCC) TAKE 1 TABLET BY MOUTHEVERY DAY IN THE MORNING 30 tablet 3 06/27/2024 ActiveStart: 10-17-2023 take 1 tablet by mouth once dailysertraline (ZOLOFT) 50 MG tablet Indications: Anxiety Take 1 tablet by mouth daily 30 tablet 10/17/2023 ActiveStart: 53-57-0089fvzg 1 tablet by mouth once dailysertraline (ZOLOFT) 25 MG tablet Indications: Anxiety Take 1 tablet by mouth daily 90 tablet 3 03/29/2022 Active Start: 15-41-0370lobu 1 tablet by mouth once dailysertraline (ZOLOFT) 25 MG tablet Take 1 tablet by mouth daily 90 tablet 3 03/12/2021 ActiveStart: 51-59-8455hfgi 1 tablet by mouth once dailysertraline (ZOLOFT) 50 MG tablet Take 1 tablet by mouth daily 30 tablet 2 08/17/2020 Activesulfamethoxazole 800 mg / trimethoprim 160 mg oral tablet (2 sources)Dihydrofolate Reductase Inhibitor Antibacterial, Sulfonamide AntimicrobialStart: 72-90-0110eenj 1 tablet by mouth every twelve hours sulfamethoxazole-trimethoprim (BACTRIM DS;SEPTRA DS) 800-160 MG per tablet TAKE 1 TABLET BY MOUTH EVERY 12 HOURS FOR 7 DAYS 0 02/24/2020 ActiveTirzepatide (MOUNJARO) 2.5 MG/0.5ML SOPN SC injection (1 source)Start: 54-48-4779Fggyvlgfzzf (MOUNJARO) 2.5 MG/0.5ML SOPN SC injection Indications: Mixed hyperlipidemia , BMI 37.0-37.9, adult , Class 2 obesity with body mass index (BMI) of 37.0 to 37.9 in adult, unspecified obesity type, unspecified whether serious comorbidity present Inject 0.5 mLs into the skin once a week 4 mL 1 05/01/2024 ActivetraZODone hydrochloride 50 mg oral tablet (1 source)Serotonin Reuptake InhibitorStart: 28-88-0187mdui 0.5 tablet by mouth once dailytraZODone (DESYREL) 50 MG tablet Take 0.5 tablets by mouth nightly 30 tablet 2 05/01/2020 Active Completed/Discontinued Medications MedicationDrug Class(es)DatesSig (Normalized)Sig (Original)norethindrone 0.35 mg oral tablet (2 sources)Start: 03-10-2023 End: 97-74-2388htbd 1 tablet by mouth in the morningnorethindrone (Micronor) 0.35 MG tablet Indications: General counseling and advice on contraceptive management Take 1 tablet (0.35 mg) by mouth in the morning. 28 tablet 11 03/10/2023 07/15/2024 Discontinued (Therapy completed)omeprazole 20 mg delayed release oral capsule (8 sources)Proton Pump InhibitorStart: 01-15-2025 End: 30-12-5060dseq 1 capsule by mouth before mealtimeomeprazole (PriLOSEC) [address] capsule Indications: Gastroesophageal Reflux Disease , Heartburn Take 1 capsule (20 mg) by mouth in the morning. Take before meals. Do not crush or chew. 30 capsule 3 01/15/2025 02/26/2025 Discontinued (Formulary change) Problems Active Problems Problem ClassificationProblemDateDocumented DateEpisodic/Chronic Administrative/social admission (4 sources)Dietary counseling and surveillance; Translations: [DIETARY COUNSELING AND SURVEILLANCE]Onset: 01-35-6400UudrtqniUsdhuit disorders (20 sources)Anxiety; Translations: [Anxiety disorder, unspecified]Onset: 180561-61-3823FxuzhinNgkrrtqwhj associated with dizziness or vertigo (2 sources)Dizziness; Translations: [Dizziness and giddiness]74-06-6253Bztnigku Deficiency and other anemia (2 sources)Anemia; Translations: [Anemia, unspecified]79-18-8184DvmasenwHksiptlv mellitus without complication (20 sources)Other abnormal glucose; Translations: [Abnormal glucose level]Onset: 11-54-0905IgwiyqehSftlggrd or abnormal glucose tolerance complicating ; childbirth; or the puerperium (12 sources)Gestational diabetes mellitus in , unspecified control; Translations: [Gestational diabetes mellitus complicating ]Onset: 016841-86-5158TgqgrzogVzhpvznbg of lipid metabolism (7 sources)Mixed hyperlipidemia; Translations: [Mixed hyperlipidemia]Onset: 406042-15-3401NpksbjtAyjxfrohox disorders (6 sources)Gastroesophageal reflux disease; Translations: [Gastro-esophageal reflux disease without esophagitis]Onset: hronic Genitourinary symptoms and ill-defined conditions (2 sources)Urinary symptoms ; Translations: [Unspecified symptoms and signs involving the genitourinary system]81-45-4672GmdlmsztDfulokmlch during ; abruptio placenta; placenta previa (1 source)Other antepartum hemorrhage, first trimester; Translations: [Other antepartum hemorrhage, first trimester]Onset: 83-04-3344OenoxmtzPzlnwldhanocj and screening for infectious disease (4 sources)Encounter for screening for infections with a predominantly sexual mode of transmission; Translations: [Encounter for screening for human papillomavirus (HPV)]Onset: 280545-84-0396MuyskirnUebcmwtjskpdc mental health disorders (20 sources)Insomnia disorder related to another mental disorder; Translations: [Insomnia due to other mental disorder]Onset: 05-02-2020 Resolved: 121843-39-8834GkvrseoBsvyz complications of (4 sources)Maternal care for excessive growth, third trimester, not applicable or unspecified; Translations: [MAT CARE EXCSS FTL GRTH 3RD TRI UNS] Onset: 64-08-6465UkgxecfxQzmkg complications of (3 sources)Maternal care for excessive growth, unspecified trimester, not applicable or unspecified; Translations: [MAT CARE EXCSS FTL GRTH UNS TRI UNS] Onset: 22-12-6677ChzoxoxyIpeno complications of (2 sources)Gastroesophageal reflux disease in ; Translations: [Diseases of the digestive system complicating , unspecified trimester] 48-34-9770DgosegudOevwn female genital disorders (20 sources)Pain in female genitalia on intercourse; Translations: [Unspecified dyspareunia]Onset: 11-30-2020 Resolved: 586468-26-7147IbpakumCobyw female genital disorders (2 sources)Vaginal discharge; Translations: [Other specified noninflammatory disorders of vagina]92-82-0541SdbrmtzrLokof injuries and conditions due to external causes (4 sources)Encounter for examination and observation following other accident; Translations: [ENC EXAM AND OBSERVATION FOLLOW OTH ACC]Onset: 45-27-9796Cooawgvu Other liver diseases (3 sources)Steatosis of liver; Translations: [Fatty (change of) liver, not elsewhere classified]Onset: 048051-15-0594EtqaddtSklmf nutritional; endocrine; and metabolic disorders (1 source)Body mass index 30+ - obesity; Translations: [Body mass index (BMI) 37.0-37.9, adult]Onset: 126005-71-8575XfyocwrBnowb nutritional; endocrine; and metabolic disorders (3 sources)Obesity; Translations: [Class 2 obesity with body mass index (BMI) of 37.0 to 37.9 in adult]Onset: 760086-01-5213LjdmhruNyvko and delivery including normal (20 sources)Encounter for supervision of normal , unspecified, unspecified trimester; Translations: [ state, incidental]Onset: 00-34-2732UodtlgqgXguvu screening for suspected conditions (not mental disorders or infectious disease) (20 sources)Encounter for other screening follow-up; Translations: [Encounter for screening, unspecified]Onset: 66-99-0642WicohibpDrhod upper respiratory disease (8 sources)Seasonal allergic rhinitis; Translations: [Other seasonal allergic rhinitis]Onset: 798866-53-1440DlutfvpMamcotbawgnmuu and other problems of amniotic cavity (4 sources)Subchorionic hematoma; Translations: [Other specified disorders of amniotic fluid and membranes, first trimester, not applicable or unspecified] Onset: 674798-67-6890EvtozjdeUtstmvpg codes; unclassified (1 source)34 weeks gestation of ; Translations: [34 WEEKS GESTATION OF ]Onset: 47-04-0161DbkfjlziOgytsyok codes; unclassified (1 source)33 weeks gestation of ; Translations: [33 WEEKS GESTATION OF ]Onset: 15-75-4491ShoxkhquHtlsjkcr codes; unclassified (1 source)Gestation period, 8 weeks; Translations: [8 weeks gestation of ]62-08-4163VbhibwdkWzyjwdgq codes; unclassified (3 sources)H/O: miscarriage; Translations: [Personal history of other complications of , childbirth and the puerperium]95-18-1463Ulwudytm Residual codes; unclassified (2 sources)Gestation period, 12 weeks; Translations: [12 weeks gestation of ]42-01-0394ZykybeazToanqecx codes; unclassified (2 sources)Gestation period, 17 weeks; Translations: [17 weeks gestation of ]43-17-5339GaxneeoyIsvpkilb codes; unclassified (2 sources)Gestation period, 20 weeks; Translations: [20 weeks gestation of ]61-05-8319WllwqulmRyktdmsh codes; unclassified (20 sources)Gestation period, 23 weeks; Translations: [23 weeks gestation of ]Onset: 149473-99-5093QtnjeuqjAooqrgor codes; unclassified (2 sources)Gestation period, 25 weeks; Translations: [25 weeks gestation of ]79-43-0694UfwvvxohAaxbyejh codes; unclassified (2 sources)Gestation period, 28 weeks; Translations: [28 weeks gestation of ]92-53-1976FjwzxjzxJjoqtdac codes; unclassified (2 sources)Gestation period, 30 weeks; Translations: [30 weeks gestation of ]53-18-5203BkybgislFzmrflsv codes; unclassified (2 sources)Gestation period, 32 weeks; Translations: [32 weeks gestation of ]87-94-7660XgublwzzUnuyuazy codes; unclassified (2 sources)Gestation period, 34 weeks; Translations: [34 weeks gestation of ]22-98-8231FpubhjvmDtpxiiwpqhpk (1 source)Cancer cervix screening status; Translations: [Screening for cervical cancer]Unclassified (3 sources)Patient encounter status; Translations: [Encounter for annual routine gynecological examination]Unclassified (20 sources)OB RemindersOnset: 921334-41-3426 Past or Other Problems Problem ClassificationProblemDateDocumented DateEpisodic/ChronicCardiac dysrhythmias (2 sources)Palpitations; Translations: [Palpitations]Onset: 16-56-7115Vexdcohk Deficiency and other anemia (3 sources)Iron deficiency anemia; Translations: [Iron deficiency anemia, unspecified]Onset: 133461-00-5885IovlhwbnYwpohqfyxf and other anemia (1 source)Iron deficiency anemia, unspecified; Translations: [Iron deficiency anemia, unspecified]Onset: 44-16-3326XphaywsaTlmbvhf and fatigue (20 sources)Fatigue; Translations: [Other fatigue]Onset: EpisodicMenstrual disorders (20 sources)Amenorrhea; Translations: [Amenorrhea, unspecified]Onset: 06-23-2022 Resolved: 23-17-9858EuiwtwmQtxgu disorders of stomach and duodenum (20 sources)Indigestion; Translations: [Functional dyspepsia]Onset: 01-13-2023 27-92-2575OlgdasyrAlrua female genital disorders (4 sources)Other specified noninflammatory disorders of vagina; Translations: [OTH SPEC NONINFLAMMATORY D/O VAGINA]Onset: 01-62-7683WmbysywwIwamw gastrointestinal disorders (20 sources)Heartburn; Translations: [Heartburn]Onset: EpisodicOther liver diseases (4 sources)Elevated liver enzymes level; Translations: [Abnormal levels of other serum enzymes]Onset: 837475-89-5518KfpjcbtnKgjhj liver diseases (1 source)Abnormal levels of other serum enzymes; Translations: [Abnormal levels of other serum enzymes]Onset: 24-25-7719NoondvkjEfxmb skin disorders (3 sources)Acne; Translations: [Acne, unspecified]Onset: 10-17-2023 Resolved: 151054-99-1406AfrlcvhaAeemv upper respiratory infections (2 sources)Sore throat symptom; Translations: [Acute pharyngitis, unspecified] Onset: 09-10-2024 Resolved: 702834-54-5126XwajablyNffivlay codes; unclassified (1 source)Family history of other diseases of the digestive system; Translations: [Family history of other diseases of the digestive system]Onset: 80-11-0925RdaaeozjJupdwuv tract infections (20 sources)Recurrent urinary tract infection; Translations: [Urinary tract infection, site not specified]Onset: 11-30-2020 Resolved: 86-11-6642Kckldulx Results Test NameValueInterpretationReference RangeFacilityUrinalysis macro (dipstick) panel (U)on 37-11-0517Ydzwiohwp, UANegativeNegative - 4(70) +++ mg/dLNOMS HealthcareBlood, UANegativeNegative [...] mg/dLNOMS HealthcareNOMS HealthcareUS OB BPP W NON-STRESSon 77-65-[place], [place] [address] Ultrasound Report Signed Patient: VINNY DOWNEY MR#: [id number] : 2000 Acct:[id number] Age/Sex: 24 / F ADM Date: 04/30/25 Loc: Attending Dr: Mukul Foy D.O. Ordering Physician: Mukul Foy D.O. Date of Service: 04/30/25 Procedure(s): US OB BPP w non-stress Accession Number(s): [id number] cc: Mukul Foy D.O.; Ynes Rodriguez CORE STACKER [address] [address] Patient Name: VINNY DOWNEY MRN: [id number] date: 2000 Sex: F Assigned Patient Location: [facility] Current Patient Location: Accession/Order Number: [id number] Exam Date: 04/30/2025 15:57 Report Date: 04/30/2025 22:59 At the request of: MUKUL FOY DO Procedure: US OB BPP w non-stress Ultrasound biophysical profile INDICATION: Gestational diabetes COMPARISON: 04/05/2025 FINDINGS/IMPRESSION:: Fetus cephalic position. 8/8 score biophysical profile. heart rate 145 beats per minutes. JAMAL 12.7 cm. Impression dictated by: Chevy Moreland M.D. 04/30/2025 10:59 PM Dictation Location: [place] [address] Electronically authenticated by: [id number] Y Date: 04/30/2025 22:59 Dictated By: Chevy Moreland M.D. Signed By: 04/30/25 DD/ 58 TD/TT: Manager Art:MILYHRadiology, Radiologist, - 04/30/2025 [place] [address] Ultrasound Report Signed Patient: VINNY DOWNEY MR#: [id number] : 2000 Acct:[id number] Age/Sex: 24 / F ADM Date: 04/30/25 Loc: US Attending Dr: Mukul Foy D.O. Ordering Physician: Mukul Foy D.O. Date of Service: 04/30/25 Procedure(s): US OB BPP w non-stress Accession Number(s): [id number] cc: Mukul Foy D.O.; Ynes Rodriguez CORE STACKER [place] [address] Patient Name: VINNY DOWNEY MRN: [id number] date: 2000 Sex: F Assigned Patient Location: [facility] Current Patient Location: Accession/Order Number: [id number] Exam Date: 04/30/2025 15:57 Report Date: 04/30/2025 22:59 At the request of: MUKUL FOY DO Procedure: US OB BPP w non-stress Ultrasound biophysical profile INDICATION: Gestational diabetes COMPARISON: 04/05/2025 FINDINGS/IMPRESSION:: Fetus cephalic position. 8/8 score biophysical profile. heart rate 145 beats per minutes. JAMAL 12.7 cm. Impression dictated by: Chevy Moreland M.D. 04/30/2025 10:59 PM Dictation Location: [place] [address] Electronically authenticated by: [id number] Y Date: 04/30/2025 22:59 Dictated By: Chevy Moreland M.D. Signed By: 04/30/252301 DD/ 58 TD/TT: Manager Art: DIANE HealthcareRadiology Study observation (narrative)[facility] HealthcareUS OB BPP W NON-STRESSOrdered By: Radiologist Radiology on 97-05-8527[facility] Work Phone: Urinalysis macro (dipstick) panel (U)on 04-30-2025 Bilirubin, UANegativeNegative - 4(70) +++ mg/dLNOMS HealthcareBlood, UANegative Negative - 50 Yunior/mcLNOMS HealthcareClarity, UAClearNOMS HealthcareColor, UA YellowNOMS HealthcareGlucose, UANegativeNegative - 1999(110) ++++ mg/dLNOMS HealthcareInterpretation and review of laboratory resultsAbnormalNONM Healthcare Ketones, UANegativeNegative - 160(16) ++++ mg/dLNOMS HealthcareLeukocytes, UA1+ Negative - 500+++ Trip/mcLNOMS HealthcareNitrite, UANegativeNegative - Positive NOMS HealthcarepH, UA6.55 - 9NOMS HealthcareProtein, UANegativeNegative - 2000(20) ++++ mg/dLNOMS HealthcareSpec Grav, UA1.011 - 1.03NOMS Healthcare Urobilinogen, UA2.00.2 - 12 mg/dLNOMS HealthcareNOMS HealthcareUrinalysis macro (dipstick) panel (U)on 40-27-4476Ybqifkwad, UANegativeNegative - 4(70) +++ mg/dL NOMS HealthcareBlood, UANegativeNegative - 50 Yunior/mcLNOMS HealthcareClarity, UA ClearNOMS HealthcareColor, UAYellowNOMS HealthcareGlucose, UANegativeNegative - 2000(110) ++++ mg/dLNOMS HealthcareInterpretation and review of laboratory resultsNormalNOMS HealthcareKetones, UANegativeNegative - 160(16) ++++ mg/dLNONM HealthcareLeukocytes, UANegativeNegative - 500+++ Trip/mcLNONM HealthcareNitrite, UANegativeNegative - PositiveNOMS HealthcarepH, UA6.55 - 9NONM Healthcare Protein, UANegativeNegative - 2000(20) ++++ mg/dLNONM HealthcareSpec Grav, UA 1.0051 - 1.03NONM HealthcareUrobilinogen, UA0.20.2 - 12 mg/dLNOSaint John's Regional Health CenterNONM HealthcareALL CBC WITH AUTO DIFFon 34-51-8665VAUSSGOEQ ABSOLUTE AWLQ8GOICSaint John's Regional Health CenterBasophils/100 WBC (Bld)0.2 %0.2 - 2.0 %NOMGolden Valley Memorial HospitalEosinophils/100 WBC (Bld)1.1 %0.9 - 7.0 %[facility] Medical CenterErythrocyte distribution width (RBC) [Ratio]12.8 %11.0 - 15.0 %[facility] CenterHematocrit (Bld) [Volume fraction]30.7 %Low36.0 - 48.0 %[facility] CenterHemoglobin (Bld) [Mass/Vol]10.3 g/dLLow12.0 - 16.0 g/dLMadison Medical CenterIMMATURE GRANULOCYTES ABS AUTO0.04HighMadison Medical Center Immature granulocytes/100 WBC (Bld)0.4 %0.0 - 0.5 %[facility] CenterInterpretation and review of laboratory resultsAbnormalMadison Medical CenterLYMPHOCYTES ABSOLUTE AUTO1.9NOSaint John's Regional Health CenterLymphocytes/100 WBC (Bld)17.1 %Low20.5 - 60.0 %[place] Health[facility] (RBC) [Entitic mass]29.7 pg26.7 - 34.0 pgCarondelet HealthHC (RBC) [Mass/Vol]33.6 g/dL29.9 - 35.2 g/dLCarondelet HealthV (RBC) [Entitic vol]88.5 fL 81.0 - 99.0 fLNOSaint John's Regional Health CenterMONOCYTES ABSOLUTE AUTO0.7NOSaint John's Regional Health Center Monocytes/100 WBC (Bld)6.5 %1.7 - 12.0 %NOMGolden Valley Memorial HospitalNEUTROPHILS ABSOLUTE AUTO 8.2HighNOMS HealthcareNeutrophils/100 WBC (Bld)74.7 %43.0 - 75.0 %NOMS HealthcarePlatelet mean volume (Bld) [Entitic vol]8.7 fLLow9.5 - 13.5 fLNOMS HealthcareTBH EO #0.1NOMS HealthcareTBH [id number] HealthcareTBH RBC3.47LowNOMS HealthcareTBH BHL60LHQG HealthcareCLINISYNCNOMS HealthcareUS OB GROWTHon 67-57-0126Trn[place], [place] [address] Ultrasound Report Signed Patient: VINNY DOWNEY MR#: [id number] : 2000 Acct:[id number] Age/Sex: 24 / F ADM Date: 04/05/25 Loc: US Attending Dr: Regina Barton Ordering Physician: Regina Barton Date of Service: 04/05/25 Procedure(s): US OB growth Accession Number(s): [id number] cc: Rgeina Barton; Physician,Non-Staff M.DSania [place] [id number] Patient Name: VINNY DOWNEY MRN: [id number] date: 2000 Sex: F Assigned Patient Location: US Current Patient Location: LAB Accession/Order Number: [id number] Exam Date: 04/05/2025 10:00 Report Date: 04/05/2025 [...] Peraza M.D. 04/05/2025 12:08 PM Dictation Location: [employer] Electronically authenticated by: [id number] Y Date: 04/05/2025 12:08 Dictated By: Daryn Peraza D.O. Signed By: 04/05/251210 DD/ 07 TD/TT: Manager Art:JAMILAHadiologvicki, Radiologist, - 04/05/[address] [address] Ultrasound Report Signed Patient: VINNY DOWNEY MR#: [id number] : 2000 Acct:[id number] Age/Sex: 24 / F ADM Date: 04/05/25 Loc: US Attending Dr: Regina Barton Ordering Physician: Regina Barton Date of Service: 04/05/25 Procedure(s): US OB growth Accession Number(s): [id number] cc: Regina Barton; Physician,Non-Staff Khadar [place] [id number] Patient Name: VINNY DOWNEY MRN: [facility]:[id number] date: 2000 Sex: F Assigned Patient Location: US Current Patient Location: LAB Accession/Order Number: [id number] Exam Date: 04/05/2025 10:00 Report Date: 04/05/2025 [...] Peraza M.D. 04/05/2025 12:08 PM Dictation Location: [employer] [facility]worksOLYMPIC [facility] HOSPITALBe[facility] [employer] Electronically authenticated by: [id number] Y Date: 04/05/2025 12:08 Dictated By: Daryn Peraza D.O. Signed By: 04/05/251210 DD/ 07 TD/TT: Manager Art: DIANE HealthcareRadiology Study observation (narrative)[facility] HealthcareUS OB GROWTHOrdered By: Radiologist Radiology on 65-66-4452LA[facility] Work Phone: Urinalysis macro (dipstick) panel (U)on 04-03-2025 Bilirubin, UANegativeNegative - 4(70) +++ mg/dLNOMS HealthcareBlood, UANegative Negative - 50 Yunior/mcLNOMS HealthcareClarity, UAClearNOMS HealthcareColor, UA YellowNOMS HealthcareGlucose, UANegativeNegative - 1999(110) ++++ mg/dLNOMS HealthcareInterpretation and review of laboratory resultsAbnormalNONM Healthcare Ketones, UANegativeNegative - 160(16) ++++ mg/dLNOMS HealthcareLeukocytes, UA PositiveNegative - 500+++ Trip/mcLNOMS HealthcareNitrite, UANegativeNegative - PositiveNOMS HealthcarepH, UA6.55 - 9NOMS HealthcareProtein, UANegativeNegative - 1999(20) ++++ mg/dLNOMS HealthcareSpec Grav, UA1.011 - 1.03NOMS Healthcare Urobilinogen, UA1.00.2 - 12 mg/dLNOMS HealthcareNOMS HealthcareUrinalysis macro (dipstick) panel (U)on 67-95-9960Lqqffogtu, UANegativeNegative - 4(70) +++ mg/dL NOMS HealthcareBlood, [...] - 1.03NOMS HealthcareUrobilinogen, UA1.00.2 - 12 mg/dLNOMS Flower HospitalNONM HealthcareUrinalysis macro (dipstick) panel (U)on 36-33-7998Khpoxuuqe, UA NegativeNegative - 4(70) +++ mg/dLNOMS HealthcareBlood, UANegativeNegative - 50 Yunior/mcLNONM HealthcareClarity, UAClearNOMS HealthcareColor, UAYellowNOMS HealthcareGlucose, UANegativeNegative - 2000(110) ++++ mg/dLNONM Healthcare Interpretation and review of laboratory resultsNormalNOMS HealthcareKetones, UA NegativeNegative - 160(16) ++++ mg/dLLAYTON HOS[facility]ITAL HealthcareLeukocytes, UANegative Negative - 500+++ Trip/mcLNONM HealthcareNitrite, UANegativeNegative - Positive NOMS HealthcarepH, UA65 - 9NOMS HealthcareProtein, UANegativeNegative - 2000(20) ++++ mg/dLNOMS HealthcareSpec Grav, UA1.011 - 1.03NOMS HealthcareUrobilinogen, UA0.20.2 - 12 mg/dLNOMS Flower HospitalNONM HealthcareUS OB 14+ WEEKS ANATOMY SCANon 1998WF OB 14+ WEEKS ANATOMY SCANFINDINGS: A single, [...] Delivery: 06/23/25 Gestational Age as of 01/15/2025: 57s5bIvpgmsblai macro (dipstick) panel (U)on 78-60-7046Pduzifqdg, UANegativeNegative - 4(70) +++ mg/dLNOMS HealthcareBlood, UANegativeNegative [...] - 1.03NOMS HealthcareUrobilinogen, UA1.00.2 - 12 mg/dLNOMS HealthcareNONM HealthcareRECURRENT VAGINITIS (HTRX)on 48-07-3369XIWIZEZOT PYDIEIT4UHOR HealthcareATOPOBIUM VAGINAENot detectedNOMS HealthcareBVAB 2,3 (BACTERIAL VAGINOSIS ASSOCIATED BACTERIA 2, 3); MOBILUNCUS HOH5PMPU HealthcareBVAB 2,3 (BACTERIAL VAGINOSIS ASSOCIATED BACTERIA 2, 3); MOBILUNCUS SPPNot detectedNOMS HealthcareCANDIDA ALBICANS, PARAPSILOSIS, WJTHADDUYB9OJTR HealthcareCANDIDA ALBICANS, PARAPSILOSIS, TROPICALISNot detectedNOMS HealthcareCANDIDA GLABRATA0 NOMS HealthcareCANDIDA GLABRATANot detectedNOMS HealthcareCANDIDA IDRQFS3FNEL HealthcareCANDIDA KRUSEINot detectedNOMS HealthcareCHLAMYDIA LIJFFGMVFBY1KLPV HealthcareCHLAMYDIA TRACHOMATISNot detectedNOMS HealthcareGARDNERELLA VAGINALIS0 NOMS HealthcareGARDNERELLA VAGINALISNot detectedNOMS HealthcareMEGASPHAERA (TYPES 1, 2)0NOMS HealthcareMEGASPHAERA (TYPES 1, 2)Not detectedNOMS Healthcare MYCOPLASMA CAVCVKTKXI4TKGB HealthcareMYCOPLASMA GENITALIUMNot detectedNOMS HealthcareNEISSERIA UYTNDDZDDVD6VTWR HealthcareNEISSERIA GONORRHOEAENot detected NOMS HealthcareTRICHOMONAS SEDTHKHYE4NUIO HealthcareTRICHOMONAS VAGINALISNot detectedNOMS HealthcareNOMS HealthcareCBCon 34-69-2828Pxkwfgxhopn distribution width (RBC) [Ratio]12.6 %11.8 - 14.4 %[facility] Community HospitalHematocrit (Bld) [Volume fraction]35.4 %Low36.3 - 47.1 %[facility] Community HospitalHemoglobin (Bld) [Mass/Vol]11.7 g/dLLow11.9 - 15.1 g/dLBon Protestant HospitalInterpretation and review of laboratory resultsAbnormalMountain States Health Alliance (RBC) [Entitic mass]30 pg25.2 - 33.5 pgCarilion Roanoke Memorial HospitalHC (RBC) [Mass/Vol]33.1 g/dL 28.4 - 34.8 g/dLBon Van Wert County HospitalV (RBC) [Entitic vol]90.8 fL82.6 - 102.9 fLDickenson Community HospitalNucleated RBC/100 WBC (Bld) [Ratio]0 %0.0 per 100 WBCDickenson Community HospitalPlatelet mean volume (Bld) [Entitic vol]8.7 fL8.1 - 13.5 fLDickenson Community HospitalPlatelets (Bld) [#/Vol]316 10*3/uLDickenson Community HospitalRBC (Bld) [#/Vol]3.9 10*6/uLLow3.95 - 5.11 m/[facility] HospitalWBC other (Bld) [#/Vol]10.2Bon [facility] Health Service HospitalErythrocyte distribution width (RBC) [Ratio]12.6 %Dxqmku60.8-14.4Corey HospitalComment on above:Performed By: #### GLUSC, CBC #### [facility] [address] [place] [place] [place] [address] Mixer Operator Raw Salt: Yelena Greco MDHematocrit (Bld) [Volume fraction]35.4 %Low 36.3-47.1MKettering Health Preble HospitalComment on above:Performed By: #### GLUSC, CBC #### [address] [place] [place] [address] Mixer Operator Raw Salt: Yelena Greco MDHemoglobin (Bld) [Mass/Vol]11.7 g/dLLow11.9-15.1 Corey HospitalComment on above:Performed By: #### GLUSC, CBC #### [address] [place], [place] 9[address]83 Mixer Operator Raw Salt: YULY ArandaCH (RBC) [Entitic mass]30.0 wtPoider38.2-33.5 Corey HospitalComment on above:Performed By: #### GLUSC, CBC #### [address] [place], [place] 8[address]83 Mixer Operator Raw Salt: TY ArandaC (RBC) [Mass/Vol]33.1 g/gDAxocse81.4-34.8Corey HospitalComment on above:Performed By: #### GLUSC, CBC #### [address] [place], [place] [address] Mixer Operator Raw Salt: YULY ArandaCV (RBC) [Entitic vol]90.8 uRGbfcsp89.6-102.9 Corey HospitalComment on above:Performed By: #### GLUSC, CBC #### [address] [place] [place] [address] Mixer Operator Raw Salt: Yelena Greco MDNRBC Automated0.0 per 100 WBCNormal0.0Corey HospitalComment on above:Performed By: #### GLUSC, CBC #### [address] [place] [address] Mixer Operator Raw Salt: ROLANDO Arandalatelet mean volume (Bld) [Entitic vol]8.7 fL Normal8.1-13.5Corey HospitalComment on above:Performed By: #### GLUSC, CBC #### [address] [place] [place] [address] Mixer Operator Raw Salt: Richie Aranda ([facility]) [#/Vol]316 10*3/bUNobymu772-270 [facility] HospitalComment on above:Performed By: #### GLUSC, CBC #### [facility] [address] [place] [place] [address] Mixer Operator Raw Salt: BILL Aranda ([facility]) [#/Vol]3.90 10*6/uLLow3.95-5.11Corey HospitalComment on above:Performed By: #### GLUSC, CBC #### [address] [place], [place] [address]83 Mixer Operator Raw Salt: LANEY Aranda ([facility]) [#/Vol]10.2 10*3/uLNormal3.5-11.3MPremier Health Miami Valley Hospital NorthComment on above:Performed By: #### GLUSC, CBC #### [address] [place] [place] [address] Mixer Operator Raw Salt: Yelena Greco MDGlucose Challenge Gestationalon 21-27-0063CHG ADMN GlucolaBon Protestant HospitalGlucose 1 Hr post 50 g glucose PO [Mass/Vol]184 mg/bNCebu01 - 135 mg/dLBon Protestant HospitalInterpretation and review of laboratory resultsAbnormalBon Protestant HospitalBon Protestant Hospital Glucose Toya Scr 50gon 50-97-9996Ppvcbey [Mass/Vol]184 mg/mBRhxw22-322GrmwuCorey HospitalComment on above:Performed By: #### GLUSC, CBC #### [address] [place] [place] [address] Mixer Operator Raw Salt: Yelena Greco MDGlu Administered viaGlucolaNormalMercy The Hospital Of Central ConnecticutComment on above:Performed By: #### GLUSC, PSYCHIATRIC #### [facility] [address] [place] [place] [address] Mixer Operator Raw Salt: SEFERINO Aranda OB LESS THAN 14 WEEKS SINGLE OR FIRST GESTATION on 08-16-1480MNUZZEWZSEW: FIRST TRIMESTER OBSTETRIC ULTRASOUND 12/20/2024 TECHNIQUE: 1. [...] by: Noah Rivero MD 12/23/24 Final result [facility] CenterRadiology Study observation (narrative)[facility] CenterUS OB LESS THAN 14 WEEKS SINGLE OR FIRST GESTATIONOrdered By: Radiologist Radiology on 44-35-4663ELCP Healthcare Work Phone: US OB LESS THAN 14 WEEKS SINGLE OR FIRST GESTATION W DOPPLERon 27-51-0174WZ OB LESS THAN 14 WEEKS SINGLE OR [...] by: Noah Rivero MD 12/23/24 Final resultNormalMercy Wetumpka HospitalUrinalysis macro (dipstick) panel (U)on 25-24-2168Syyavrmka, UANegativeNegative - 4(70) +++ mg/dLNOMS HealthcareBlood, UAPositiveNegative [...] HealthcareNOMS Healthcare HCG ( test) Ql (U)on 75-94-9183Wqwbzkhazcbujl and review of laboratory resultsAbnormalNOMS HealthcarePreg Test, UrPositiveNegativeNOMS HealthcareNOMS HealthcareUS OB TRANSVAGINALon 69-42-7344UI OB TRANSVAGINALEXAM: US OB TRANSVAGINAL HISTORY: Dating. [...] PHD at 15-Nov-2024 09:44:32 AM [facility] TeleradiologyNormalNot AvailableComment on above:Order Comment: US OB TRANSVAGINAL No LMP recorded.Urinalysis macro (dipstick) panel (U)on 94-27-6972Jittagxzo, UA NegativeNegative - 4(70) +++ mg/dLNOMS HealthcareBlood, UANegativeNegative - 50 Yunior/mcLNOMS HealthcareClarity, UAClearNOMS HealthcareColor, UAYellowNOMS HealthcareGlucose, UANegativeNegative - 1999(110) ++++ mg/dLNOMS Healthcare Interpretation and review of laboratory resultsNormalNOMS HealthcareKetones, UA NegativeNegative - 160(16) ++++ mg/dLNOMS HealthcareLeukocytes, UANegative Negative - 500+++ Trip/mcLNOMS HealthcareNitrite, UANegativeNegative - Positive NOMS HealthcarepH, UA6.55 - 9NOMS HealthcareProtein, UANegativeNegative - 1999(20) ++++ mg/dLNOMS HealthcareSpec Grav, UA1.0051 - 1.03[facility] Urobilinogen, UA0.20.2 - 12 mg/dLCape Fear Valley Hoke HospitalIGP,APTIMA HPV,AGE GDLNon 77-64-9091LJS LN ACOG TESTINGNote.[facility] HealthcareComment on above:TESTS RESULT FLAG UNITS REF RANGE LAB Clinician Provided Cytology Information Source.............Cervix;Endocervix No. of containers..01 ThinPrep Vial Age Kelbyo ACOG Addie... FLAG LEGEND: L-Low Normal,H-High Normal,LL-Alert Low,HH-Alert High <-Panic Low,>-Panic High,A-Abnormal,AA-Critical Abnormal Performed at: 01 =G [address] [address] Anastasiya Moses MD, IGP, RFX APTIMA HPV ASCUNote.[facility] HealthcareComment on above:TESTS RESULT FLAG UNITS REF RANGE LAB DIAGNOSIS: 02 NEGATIVE FOR INTRAEPITHELIAL LESION OR MALIGNANCY. Specimen adequacy: 02 Satisfactory for evaluation. Endocervical and/or squamous metaplastic cells (endocervical component) are present. Performed by: 02 Maico Galaviz, Weatherization Operations Manager (ASC) . 02 Note: Note 02 The [...] High,A-Abnormal,AA-Critical Abnormal Performed at: 02 WB [facility] [address] [address] Anastasiya Moses MD, Performed at: =G - [facility] [address] [id number] Mixer Operator Raw Salt: Anastasiya Moses MD, Phone: [phone] Performed at: WB - [facility] [address] [id number] Mixer Operator Raw Salt: Anastasiya Moses MD, Phone: [phone] BRUSH-SPATULA CERVIX ENDOCERVIX CLINISYNCNOMS HealthcareComp Metabolic Profon 19-76-3741Vgxrlmo [Mass/Vol]4.6 g/dLNormal3.5-5.2[facility] Central ConnecticutCommclaren greater lansing hospital on above:Performed By: #### CP #### [facility] [address] [place] [address] [place] [address] Mixer Operator Raw Salt: Yelena Greco MDAlbumin/Glob Ratio1.4Zgkbif0.0-2.5Corey HospitalComment on above:Performed By: #### CP #### [address] [place] [place] [address] Mixer Operator Raw Salt: Mechelle Arandaline Phos71 U/NJjlmus24-202QuajeCorey HospitalComment on above:Performed By: #### CP #### [address] [place] [address] Mixer Operator Raw Salt: Yelena Greco MDALT [Catalytic activity/Vol]41 U/REpgl72-05FcnubCorey HospitalComment on above:Performed By: #### CP #### [address] [place] [address] Mixer Operator Raw Salt: Yelena Greco MDAnion gap [Moles/Vol]10 mmol/LNormal9-16Corey HospitalComment on above:Performed By: #### CP #### [address] [place] [address] Mixer Operator Raw Salt: Yelena Greco MDAST [Catalytic activity/Vol]34 U/LShprdq50-10ZqjfcCorey HospitalComment on above:Performed By: #### CP #### [address] [place] [address] Mixer Operator Raw Salt: Yelena Greco MDBilirubin [Mass/Vol]0.4 mg/dLNormal0.00-1.20Corey HospitalComment on above:Performed By: #### CP #### [address] [place] [address] Mixer Operator Raw Salt: Yelena Greco MDBUN/CRE Qqfkc79Boql4-98Cqtlr [facility] Comment on above:Performed By: #### CP #### [address] [place] [address] Mixer Operator Raw Salt: NATALIO Arandaalcium [Mass/Vol]9.4 mg/dLNormal8.6-10.4Corey HospitalComment on above:Performed By: #### CP #### [address] [place], [place] [address]83 Mixer Operator Raw Salt: NATALIO Arandahloride [Moles/Vol]103 mmol/VLchgmr97-908HwmefCorey HospitalComment on above:Performed By: #### CP #### [address] [place], [place] [address]83 Mixer Operator Raw Salt: Yelena Greco MDCO2 [Moles/Vol]25 mmol/HNfclkv25-69XddujCorey HospitalComment on above:Performed By: #### CP #### [address] [place], [place] [address]683 Mixer Operator Raw Salt: NATALIO Arandareatinine [Mass/Vol]0.6 mg/dLNormal0.50-0.90Corey HospitalComment on above:Performed By: #### CP #### [address] [place], [place] 9[address]83 Mixer Operator Raw Salt: Yelena Greco MDGFR/1.73 sq M.predicted among non-blacks MDRD (S/P/Bld) [Vol rate/Area]mL/min/{1.73_m2}Normal>60Corey HospitalComment on above:Result Comment: These results are [...] renal tubular secretion.Performed By: #### CP #### [address] [place], [place] 2390[address] Mixer Operator Raw Salt: Yelena Greco MDGlucose [Mass/Vol]83 mg/uJQjboes90-02WjvbuPremier Health Miami Valley Hospital NorthComment on above:Performed By: #### CP #### [address] [place], [place] 556[address]83 Mixer Operator Raw Salt: ROLANDO Arandaotassium [Moles/Vol]4.6 mmol/LNormal3.7-5.3MKettering Health Preble HospitalComment on above:Performed By: #### CP #### [address] [place], [place] 8395483 Mixer Operator Raw Salt: Yelena Greco MDProtein [Mass/Vol]7.8 g/dLNormal6.6-8.7Corey HospitalComment on above:Performed By: #### CP #### [address] [place], [place] 2328283 Mixer Operator Raw Salt: Yelena Greco MDSodium [Moles/Vol]138 mmol/IWqiwwc272-404PwphfCorey HospitalComment on above:Performed By: #### CP #### [address] [place], [place] [address]383 Mixer Operator Raw Salt: Yelena Greco MDUrea nitrogen [Mass/Vol]13 mg/dLNormal6-20Corey HospitalComment on above:Performed By: #### CP #### [address] [place], [place] [address]83 Mixer Operator Raw Salt: NATALIO Arandaomprehensive Metabolic Panelon 15-69-9932Sokdmha [Mass/Vol]4.6 g/dL3.5 - 5.2 g/dLBon Protestant HospitalAlbumin/Globulin [Mass ratio]1.5 {ratio}1.0 - 2.5Bon Protestant HospitalALP [Catalytic activity/Vol]71 U/L35 - 104 U/LBon Secours Mercy HealthALT [Catalytic activity/Vol]41 U/LHigh10 - 35 U/LBon SecUC Medical CenterAnion gap [Moles/Vol]10 mmol/L9 - 16 mmol/LBon Secours [facility] HealthAST [Catalytic activity/Vol]34 U/L10 - 35 U/LBon SecSt. Bernard Parish Hospital HealthBilirubin [Mass/Vol]0.4 mg/dL0.00 - 1.20 mg/dLBon [facility] HealthCalcium [Mass/Vol]9.4 mg/dL8.6 - 10.4 mg/dLBon [facility] Chloride [Moles/Vol]103 mmol/L98 - 107 mmol/LBon SecSt. Bernard Parish Hospital HealthCO2 [Moles/Vol]25 mmol/L20 - 31 mmol/LBon [facility] HealthCreatinine [Mass/Vol] 0.6 mg/dL0.50 - 0.90 mg/dLBon [facility] HealthEst, Glom Filt Rate- PINFBon Protestant HospitalComment on above: These results are not intended [...] secretion. Glucose [Mass/Vol]83 mg/dL74 - 99 mg/dLBon Protestant HospitalInterpretation and review of laboratory resultsAbnormalCarilion Roanoke Community Hospital HealthPotassium [Moles/Vol]4.6 mmol/L3.7 - 5.3 mmol/LBon [facility] HealthProtein [Mass/Vol] 7.8 g/dL6.6 - 8.7 g/dLBon Protestant HospitalSodium [Moles/Vol]138 mmol/L136 - 145 mmol/LBon [facility] HealthUrea nitrogen [Mass/Vol]13 mg/dL6 - 20 mg/dL [facility] HospitalUrea nitrogen/Creatinine [Mass ratio]22 mg/mgHigh9 - 20 [facility] PatrickLipid Panelon 05-20-2024 Cholesterol [Mass/Vol]152 mg/dL0 - 199 mg/dLBon Protestant HospitalComment on above: Cholesterol Guidelines: <200 Desirable 200-240 Borderline >240 Undesirable Cholesterol in HDL [Mass/Vol]33 mg/dLLow40 - PINF mg/dLBon [facility] Comment on above: HDL Guidelines: <40 Undesirable 40-59 Borderline >59 Desirable Cholesterol in LDL [Mass/Vol]88 mg/dL0 - 100 mg/dLBon [facility] Hospital Comment on above: LDL Guidelines: <100 Desirable 100-129 Near to/above Desirable 130-159 Borderline >159 Undesirable Direct (measured) LDL and calculated LDL are not interchangeable tests. Cholesterol in VLDL [Mass/Vol]31 mg/dLBon [facility] [employer] Cholesterol.total/Cholesterol in HDL [Mass ratio]5.0 {ratio}[facility] [employer], IncInterpretation and review of laboratory resultsAbnormalDickenson Community HospitalTriglyceride [Mass/Vol]156 mg/dLHighNINF - 150 mg/dLBon Protestant HospitalComment on above: Triglyceride Guidelines: <150 Desirable 150-199 Borderline 200-499 High >499 Very high Based on AHA Guidelines for fasting triglyceride, April 2012. [facility] HospitalLipid Profileon 62-49-5574Wurvrijyxwv [Mass/Vol]152 mg/dLNormal0-199Corey HospitalCommclaren greater lansing hospital on above:Result Comment: Cholesterol Guidelines: <200 Desirable 200-240 Borderline >240 UndesirablePerformed By: #### LIPR #### [employer] [address] [place], [place] [id number] Mixer Operator Raw Salt: NATALIO Tavarezholesterol in HDL [Mass/Vol]33 mg/dLLow>40LakeHealth Beachwood Medical Centerment on above:Result Comment: HDL Guidelines: <40 Undesirable 40-59 Borderline >59 DesirablePerformed By: #### LIPR #### [employer] [address] [place] [address] Mixer Operator Raw Salt: NATALIO Tavarezholesterol in LDL [Mass/Vol]88 mg/dLNormal0-100 [facility] on above:Result Comment: LDL Guidelines: <100 Desirable 100-129 Near to/above Desirable 130-159 Borderline >159 Undesirable Direct (measured) LDL and calculated LDL are not interchangeable tests.Performed By: #### LIPR #### [facility] [place] [address] Mixer Operator Raw Salt: NATALIO Tavarezholesterol in VLDL [Mass/Vol]31 mg/dLNormal Corey HospitalComment on above:Performed By: #### LIPR #### [facility] [address] [place] [address] Mixer Operator Raw Salt: NATALIO Tavarezholesterol.total/Cholesterol in HDL [Mass ratio]5.0 {ratio}NormalCorey HospitalComment on above:Performed By: #### LIPR #### [facility] [address] [place] [address] Mixer Operator Raw Salt: Osvaldo Santamaria MDTriglyceride [Mass/Vol]156 mg/dLHigh<150Corey HospitalComment on above:Result Comment: Triglyceride Guidelines: <150 Desirable 150-199 Borderline 200-499 High >499 Very high Based on AHA Guidelines for fasting triglyceride, April 2012.Performed By: #### LIPR #### [facility] [employer] [address] [place] [address] Mixer Operator Raw Salt: Osvaldo Santamaria MDUS GALLBLADDER RUQon 87-86-4153DN GALLBLADDER RUQEXAMINATION: RIGHT UPPER QUADRANT ULTRASOUND 03/06/2024 9:58 am COMPARISON: None. HISTORY: ORDERING SYSTEM PROVIDED HISTORY: Elevated liver enzymes TECHNOLOGIST PROVIDED HISTORY: This procedure can be scheduled via [facility]. elevated liver enzymes, fam hx gallbladder disease. [...] Signed by: Hernandez Stewart MD 03/06/24 Final resultNormalCenterville 83-89-1529Kbpfcrajxiy distribution width (RBC) [Ratio]12.4 %Nasdzm48.8-14.4Corey HospitalComment on above: Performed By: #### FEBC #### [address] [address] Mixer Operator Raw Salt: Osvaldo Santamaria MD #### CBC, CP #### [address] [place] [address] Mixer Operator Raw Salt: Yelena Greco MDHematocrit (Bld) [Volume fraction]40.2 %Normal 36.3-47.1MPremier Health Miami Valley Hospital NorthComment on above:Performed By: #### FEBC #### [address] [address] Mixer Operator Raw Salt: Osvaldo Santamaria MD #### CBC, CP #### [address] [place] [address] Mixer Operator Raw Salt: Yelena Greco MDHemoglobin (Bld) [Mass/Vol]13.5 g/dLNormal 11.9-15.1MPremier Health Miami Valley Hospital NorthComment on above:Performed By: #### FEBC #### [address] [address] Mixer Operator Raw Salt: Osvaldo Santamaria MD #### CBC, CP #### [address] [place] [address] Mixer Operator Raw Salt: YULY ArandaCH (RBC) [Entitic mass]29.8 coNsxbct26.2-33.5 Corey HospitalComment on above:Performed By: #### FEBC #### [address] [address] Mixer Operator Raw Salt: Osvaldo Santamaria MD #### CBC, CP #### [address] [place] [place] [address] Mixer Operator Raw Salt: YULY ArandaCHC (RBC) [Mass/Vol]33.6 g/vMRdavhw24.4-34.8Corey HospitalComment on above:Performed By: #### FEBC #### [address] [address] Mixer Operator Raw Salt: Osvaldo aSntamaria MD #### CBC, CP #### [address] [place] [place] [address] Mixer Operator Raw Salt: YULY ArandaCV (RBC) [Entitic vol]88.7 rLKgdugs07.6-102.9 Corey HospitalComment on above:Performed By: #### FEBC #### [address] [address] Mixer Operator Raw Salt: Osvaldo Santamaria MD #### CBC, CP #### [address] [place] [address] Mixer Operator Raw Salt: Yelena Greco MDNRBC Automated0.0 per 100 WBCNormal0.0Corey HospitalComment on above:Performed By: #### FEBC #### [address] [address] Mixer Operator Raw Salt: Osvaldo Santamaria MD #### CBC, CP #### [address] [place] [id number] Mixer Operator Raw Salt: ROLANDO Arandalatelet mean volume (Bld) [Entitic vol]8.5 fL Normal8.1-13.5Corey HospitalComment on above:Performed By: #### FEBC #### [address] [address] Mixer Operator Raw Salt: Osvaldo Santamaria MD #### CBC, CP #### [address] [place], [place] [address] Mixer Operator Raw Salt: Richie Aranda ([facility]) [#/Vol]309 10*3/xQLzsxyt057-523 [facility] HospitalComment on above:Performed By: #### FEBC #### [address] [address] Mixer Operator Raw Salt: Osvaldo Santamaria MD #### CBC, CP #### [address] [place] [address] Mixer Operator Raw Salt: BILL Aranda ([facility]) [#/Vol]4.53 10*6/uLNormal3.95-5.11[facility] HospitalComment on above:Performed By: #### FEBC #### [address] [address] Mixer Operator Raw Salt: Osvaldo Santamaria MD #### CBC, CP #### [address] [place] [address] Mixer Operator Raw Salt: JOSELITO Aranda ([facility]) [#/Vol]6.5 10*3/uLNormal3.5-11.3MKettering Health Preble HospitalComment on above:Performed By: #### FEBC #### [address] [address] Mixer Operator Raw Salt: Osvaldo Santamaria MD #### CBC, CP #### [address] [place] [id number] Mixer Operator Raw Salt: NATALIO [facility]andacache [facility] Metabolic Profon 33-33-1821Yxqlewy [Mass/Vol] 4.5 g/dLNormal3.5-5.2MKettering Health Preble HospitalComment on above:Performed By: #### FEBC #### [address] [address] Mixer Operator Raw Salt: Osvaldo Santamaria MD #### CBC, CP #### [address] [place], [place] [id number] Mixer Operator Raw Salt: Yelena Greco MDAlbumin/Glob Ratio1.6Yypoun1.0-2.5Corey HospitalComment on above:Performed By: #### FEBC #### [address] [address] Mixer Operator Raw Salt: Osvaldo Santamaria MD #### CBC, CP #### [address] [place] [address] [place] [address] Mixer Operator Raw Salt: Giselle Aranda Phos74 U/XTjjfhm09-668WisbnCorey HospitalComment on above:Performed By: #### FEBC #### [address] [address] Mixer Operator Raw Salt: Osvaldo Santamaria MD #### CBC, CP #### [address] [place] [address] [place] [address] Mixer Operator Raw Salt: AMRITA Aranda [Catalytic activity/Vol]61 U/LHigh5-33Corey HospitalComment on above:Performed By: #### FEBC #### [address] [address] Mixer Operator Raw Salt: Osvaldo Santamaria MD #### CBC, CP #### [address] [place] [address] [place] [address] Mixer Operator Raw Salt: Lindsay Aranda gap [Moles/Vol]8 mmol/LLow9-17Corey HospitalCommclaren greater [facility] on above:Performed By: #### FEBC #### [address] [address] Mixer Operator Raw Salt: Osvaldo Santamaria MD #### CBC, CP #### [address] [place] [address] Mixer Operator Raw Salt: Yelena Greco MDAST [Catalytic activity/Vol]43 U/LHigh<32Corey HospitalComment on above:Performed By: #### FEBC #### [address] [place] [address] Mixer Operator Raw Salt: Osvaldo Santamaria MD #### CBC, CP #### [address] [place] [address] Mixer Operator Raw Salt: Yelena Greco MDBilirubin [Mass/Vol]0.2 mg/dLLow0.3-1.2MPremier Health Miami Valley Hospital NorthComment on above:Performed By: #### FEBC #### [address] [address] Mixer Operator Raw Salt: Osvaldo Santamaria MD #### CBC, CP #### [address] [place] [address] Mixer Operator Raw Salt: Yelena Greco MDBUN/CRE Knzjt91Ljnqjn5-73Remkm [facility] Comment on above:Performed By: #### FEBC #### [address] [address] Mixer Operator Raw Salt: Osvaldo Santamaria MD #### CBC, CP #### [address] [place] [address] Mixer Operator Raw Salt: NATALIO Arandaalcium [Mass/Vol]9.4 mg/dLNormal8.6-10.4Corey HospitalComment on above:Performed By: #### FEBC #### [address] [address] Mixer Operator Raw Salt: Osvaldo Santamaria MD #### CBC, CP #### [address] [place], [place] [address]83 Mixer Operator Raw Salt: NATALIO Arandahloride [Moles/Vol]100 mmol/VUwnjgz14-744IyesoCorey HospitalComment on above:Performed By: #### FEBC #### [address] [place] [address] Mixer Operator Raw Salt: Osvaldo Santamaria MD #### CBC, CP #### [address] [place], [place] [address] Mixer Operator Raw Salt: NATAILO ArandaO2 [Moles/Vol]28 mmol/NTsvpgk51-63NyuawCorey HospitalComment on above:Performed By: #### FEBC #### [facility] [employer] [address] [place] [address] Mixer Operator Raw Salt: Osvaldo Santamaria MD #### CBC, CP #### [address] [place] [id number] Mixer Operator Raw Salt: NATALIO Arandareatinine [Mass/Vol]0.6 mg/dLNormal0.5-0.9Corey HospitalComment on above:Performed By: #### FEBC #### [address] [address] Mixer Operator Raw Salt: Osvaldo Santamaria MD #### CBC, CP #### [address] [place], [place] [address] Mixer Operator Raw Salt: Yelena Greco MDGFR/1.73 sq M.predicted among non-blacks MDRD (S/P/Bld) [Vol rate/Area]mL/min/{1.73_m2}Normal>60Corey HospitalComment on above:Result Comment: These results are [...] renal tubular secretion.Performed By: #### FEBC #### [address] [address] Mixer Operator Raw Salt: Osvaldo Santamaria MD #### CBC, CP #### [address] [place], [place] 285[address]83 Mixer Operator Raw Salt: Yelena Greco MDGlucose [Mass/Vol]91 mg/fLVrjeao80-28HjqitPremier Health Miami Valley Hospital NorthComment on above:Performed By: #### FEBC #### [address] [address] Mixer Operator Raw Salt: Osvaldo Santamaria MD #### CBC, CP #### [address] [place], [place] 9[address] Mixer Operator Raw Salt: ROLANDO Arandaotassium [Moles/Vol]4.2 mmol/LNormal3.7-5.3[facility] [place] HospitalComment on above:Performed By: #### FEBC #### [address] [address] Mixer Operator Raw Salt: Osvaldo Santamaria MD #### CBC, CP #### [address] [place] [address] Mixer Operator Raw Salt: Yelena Greco MDProtein [Mass/Vol]7.6 g/dLNormal6.4-8.3Mgrand lake joint township district memorial hospitaly [place] HospitalComment on above:Performed By: #### FEBC #### [address] [address] Mixer Operator Raw Salt: Osvaldo Santamaria MD #### CBC, CP #### [address] [place] [address] Mixer Operator Raw Salt: Yelena Greco MDSodium [Moles/Vol]136 mmol/CGzqbyb282-270Pltmg [facility] ConnecticutComment on above:Performed By: #### FEBC #### [address] [place] [address] Mixer Operator Raw Salt: Osvaldo Santamaria MD #### CBC, CP #### [address] [place] [address] Mixer Operator Raw Salt: Yelena Greco MDUrea nitrogen [Mass/Vol]12 mg/dLNormal6-20Corey HospitalComment on above:Performed By: #### FEBC #### [address] [address] Mixer Operator Raw Salt: Osvaldo Santamaria MD #### CBC, CP #### [address] [place] [address] Mixer Operator Raw Salt: Yelena Greco MDIron Binding Cap.on 02-16-2024% Fe Rjgjlaheyd56 % Vkmesa56-20Kxqgn The Hospital Of Central ConnecticutComment on above:Performed By: #### FEBC #### [address] [address] Mixer Operator Raw Salt: Osvaldo Santamaria MD #### CBC, CP #### [address] [place] [id number] Mixer Operator Raw Salt: Yelena Greco MDIron [Mass/Vol]92 ug/mZVlwuss88-837GbkrxCorey HospitalComment on above:Performed By: #### FEBC #### [address] [address] Mixer Operator Raw Salt: Osvaldo Santamaria MD #### CBC, CP #### [address] [place] [address] Mixer Operator Raw Salt: Yelena Greco MDTokarlos Fe Binding Zac308 ug/jYTwnavb659-269BvaleCorey HospitalComment on above:Performed By: #### FEBC #### [address] [address] Mixer Operator Raw Salt: Osvaldo Santamaria MD #### CBC, CP #### [facility] [address] [place], [place] [id number] Mixer Operator Raw Salt: Yelena Greco MDUnbound Fe Bind Bct163 ug/wSCgebgn102-853BgncoCorey HospitalComment on above:Performed By: #### FEBC #### [address] [id number] Mixer Operator Raw Salt: Osvaldo Santamaria MD #### CBC, CP #### [facility] [address] [place], [place] 85[address]83 Mixer Operator Raw Salt: Yelena Greco MDLipid Profileon 26-30-8305Plgpbmzbsyf [Mass/Vol] 245 mg/dLHigh0-199Corey HospitalComment on above:Result Comment: Cholesterol Guidelines: <200 Desirable 200-240 Borderline >240 UndesirablePerformed By: #### LIPR #### [address] [address] Mixer Operator Raw Salt: Osvaldo Santamaria, MDCholesterol in HDL [Mass/Vol]34 mg/dLLow>40Corey HospitalComment on above:Result Comment: HDL Guidelines: <40 Undesirable 40-59 Borderline >59 DesirablePerformed By: #### LIPR #### [facility] [employer] [address] [place] [address] Mixer Operator Raw Salt: Osvaldo Santamaria MDCholesterol in LDL [Mass/Vol]159 mg/dLHigh0-100 Corey HospitalComment on above:Result Comment: LDL Guidelines: <100 Desirable 100-129 Near to/above Desirable 130-159 Borderline >159 Undesirable Direct (measured) LDL and calculated LDL are not interchangeable tests.Performed By: #### LIPR #### [facility] [address] [place] [address] Mixer Operator Raw Salt: Osvaldo Santamaria, MDCholesterol in VLDL [Mass/Vol]52 mg/dLNormal Corey HospitalComment on above:Performed By: #### LIPR #### [facility] [address] [place] [address] Mixer Operator Raw Salt: NATALIO Tavarezholesterol.total/Cholesterol in HDL [Mass ratio]7.0 {ratio}NormalCorey HospitalComment on above:Performed By: #### LIPR #### [employer] [address] [place], [place] 3[address] Mixer Operator Raw Salt: Osvaldo Santamaria MDTriglyceride [Mass/Vol]259 mg/dLHigh<150Corey HospitalComment on above:Result Comment: Triglyceride Guidelines: <150 Desirable 150-199 Borderline 200-499 High >499 Very high Based on AHA Guidelines for fasting triglyceride, April 2012.Performed By: #### LIPR #### [facility] [address] [place] [address] Mixer Operator Raw Salt: Osvaldo Santamaria MDOffice Visiton [id number]-up visit [phone] Vinny Downey 2000 F Date Provider Department Center 07/11/2023 RAJENDRA GUNN SAMSON Liriano [facility] Family History Problem Relation Age of Onset Anemia Mother Supraventricular tachycardia Father Hyperlipidemia Father Diabetes Sister Family Status - Relation Status Age at Mother Father Sister Level of Service:24644 MO OFFICE/OUTPATIENT NEW MODERATE MDM 45 [facility]Office Visiton [id number]-up visit [phone] Vinny Downey 2000 F Date Provider Department Center 03/20/2023 ISRAEL ULLOA [facility] Family History Problem Relation Age of Onset Anemia Mother Supraventricular tachycardia Father Hyperlipidemia Father Diabetes Sister Family Status - Relation Status Age at Mother Father Sister Level of Service:79534 MO OFFICE/OUTPATIENT NEW LOW MDM 30-44 MIN[facility]ESC[facility] HospitalUS PREG BIOPHY W NON STRESSon [id number] PREG BIOPHY W NON STRESSEXAMINATION: US PREG [...] Electronically authenticated by: YELENA CARLOS Date: 2022-12-20 07:03[facility] PREG PLACENTAon [id number] PREG PLACENTAEXAMINATION: US PREG PLACENTA HISTORY: Left [...] authenticated by: LUIS ALFREDO GRANT Date: 2022-12-12 14:56[facility] PREG BIOPHY W NON STRESSon [id number] PREG BIOPHY W NON STRESSEXAMINATION: US PREG [...] authenticated by: LUIS ALFREDO GRANT Date: 2022-12-11 04:08[facility] PREG GROWTHon [id number] PREG GROWTHEXAMINATION: US PREG GROWTH HISTORY: High [...] authenticated by: LUIS ALFREDO GRANT Date: 2022-12-11 04:06[facility] CenterGTT 3 HR PREGon 35-87-1718Yotdcxx [Mass/Vol]98 mg/dLNormal 74-106[facility] CenterComment on above:Performed By: #### GTT3P #### [facility] [address] [place] [address] Dr. Emilee SpringerGlucose [Mass/Vol]170 mg/dLUpper Valley Medical CenterComment on above:Performed By: #### GTT3P #### [facility] [address] [place] [address] Dr. Emilee SpringerGlucose [Mass/Vol]201 mg/dLUpper Valley Medical CenterCommclaren greater lansing hospital on above:Performed By: #### GTT3P #### [facility] [address] [place] [address] Dr. Emilee SpringerGlucose [Mass/Vol]115 mg/dLUpper Valley Medical CenterComment on above:Performed By: #### GTT3P #### [facility] [address] [place] [address] Dr. Emilee Mcconnell PREG INCOMPLETE ANATOMYon [id number] PREG INCOMPLETE ANATOMY EXAM: US PREG INCOMPLETE ANATOMY HISTORY: screening COMPARISON: 09/10/2022 TECHNIQUE: Transabdominal FINDINGS: position: Transverse, head to the maternal right Heart rate: 157 bpm Normal observed anatomy: Nose/lips, four-chamber heart, left ventricular outflow tract, right ventricular outflow tract, spine IMPRESSION: Normal observed anatomy Electronically authenticated by: YELENA CARLOS Date: 2022-10-16 08:44NormalThe [facility] AUTO DIFFon [id number] #0.0 103/ulNormal0.0-0.1The [facility] HospitalComment on above:Performed By: #### CBC #### [facility] [address] [place] [address] Dr. Emilee SpringerBasophils/100 WBC (Bld)0.2 %Normal0.2-2.0The [facility] Comment on above:Performed By: #### CBC #### [facility] [address] [place] [address] Dr. Emilee Weldon #0.1 103/ulNormal0.0-0.7The [facility] HospitalComment on above: Performed By: #### CBC #### [facility] [address] [place] [address] Dr. Emilee Cintronosinophils/100 WBC (Bld)0.8 %Critically low0.9-7.0The [facility] HospitalComment on above:Performed By: #### CBC #### [facility] [address] [place] [address] Dr. Emilee Cintronrythrocyte distribution width (RBC) [Ratio]12.5 %Ktmdjl28.0-15.0 [facility] CenterComment on above:Performed By: #### CBC #### [facility] [address] [place] [address] Dr. Emilee SpringerHematocrit (Bld) [Volume fraction]29.8 %Critically low36.0-48.0 The [facility] HospitalComment on above:Performed By: #### CBC #### [facility] [address] [place] [address] Dr. Emilee SpringerHemoglobin (Bld) [Mass/Vol]10.0 g/dLCritically low12.0-16.0The [facility] HospitalComment on above:Performed By: #### CBC #### [facility] [address] [place] [address] Dr. Emilee Van #0.05 10e3/ulCritically high0.00-0.03The [facility] Comment on above:Performed By: #### CBC #### [facility] [address] [place] [address] Dr. Emilee Van %0.5 %Normal0.0-0.5The [facility] HospitalComment on above: Performed By: #### CBC #### [facility] [address] [place] [address] Dr. Emilee Renae #1.6 103/ulNormal1.2-3.8The Orleans HospitalComment on above:Performed By: #### CBC #### [facility] [address] [place] [address] Dr. Emilee Danielhocytes/100 WBC (Bld)15.3 %Critically low20.5-60.0The [facility] HospitalComment on above:Performed By: #### CBC #### [facility] [address] [place] [address] Dr. Emilee Esquivel DIFF REQNONormalThe [facility] HospitalComment on above: Performed By: #### CBC #### [facility] [address] [place] [address] Dr. Emilee Hannah (RBC) [Entitic mass]30.2 kaPaiujv65.7-34.0The [facility] HospitalComment on above:Performed By: #### CBC #### [facility] [address] [place] [address] Dr. Emilee Guevara (RBC) [Mass/Vol]33.6 g/lCXciyzk79.9-35.2The [facility] HospitalComment on above:Performed By: #### CBC #### [facility] [address] [place] [address] Dr. Emilee Ornelas (RBC) [Entitic vol]90.0 rIWzlzzb07.0-99.0The [facility] HospitalComment on above:Performed By: #### CBC #### [facility] [address] [place] [address] Dr. Emilee Banegas #0.6 103/ulNormal0.3-0.8The [facility] HospitalComment on above:Performed By: #### CBC #### [facility] [address] [place] [address] Dr. Emilee Hightowerocytes/100 WBC (Bld)5.8 %Normal1.7-12.0[facility] Comment on above:Performed By: #### CBC #### [facility] [address] [place] [address] Dr. Emilee Fernandez #8.2 103/ulCritically high1.4-6.5The [facility] Comment on above:Performed By: #### CBC #### [facility] [address] [place] [address] Dr. Emilee Meeksutrophils/100 WBC (Bld)77.4 %Critically high43.0-75.0The [facility] HospitalComment on above:Performed By: #### CBC #### [facility] [address] [place] [address] Dr. Emilee Olmedolet mean volume (Bld) [Entitic vol]8.5 fLCritically low 9.5-13.5The [facility] HospitalComment on above:Performed By: #### CBC #### [facility] [address] [place] [address] Dr. Emilee SpringerPLT347 103/ueYdpcus562-297Etf [facility] HospitalComment on above: Performed By: #### CBC #### [facility] [address] [place] [address] Dr. Emilee SpringerRBC3.31 106/ulCritically low4.20-5.40The [facility] HospitalComment on above:Performed By: #### CBC #### [facility] [address] [place] [address] Dr. Emilee SpringerWBC10.6 103/ulNormal4.0-11.0The [facility] HospitalComment on above:Performed By: #### CBC #### [facility] [address] [place] [address] Dr. Emilee BrionesOSE - 1HRon 78-01-4588Lhjsabl [Mass/Vol]176 mg/dLCritically kkuy20-537OkiSouthern Ohio Medical CenterComment on above:Performed By: #### GLU1HR #### [facility] [address] [address] [address] Emilee SpringerCHLAMYDIA/GONOCOCCUS ANISA (SWAB/URINE/PAPon 94-10-4107Hgaxkcjbx trachomatis, NAANegativeNormalNegativeThe [facility] HospitalComment on above: Performed By: #### CBC #### [facility] [address] [address] [address] Emilee SpringerNeisseria gonorrhoeae, NAANegativeNormalNegativeSouthern Ohio Medical CenterComment on above:Performed By: #### CBC #### [facility] [address] [place] [address] Dr. Emilee SpringerVAGINITIS/VAGINOSIS DNA PROBEon 41-74-2705Fvliqef speciesNegative NormalNegativeThe [facility] HospitalComment on above:Performed By: #### CBC #### [facility] [address] [address] [address] Emilee SpringerGardnerella vaginalisNegativeNormalNegativeSouthern [facility] Center Comment on above:Performed By: #### CBC #### [facility] [address] [place] [address] Dr. Emilee SpringerTrichomonas vaginalisNegativermalNegativeSouthern [facility] Medical Center Comment on above:Performed By: #### CBC #### [facility] [address] [place] [address] Dr. Emilee Mcconnell PREG ANATOMY SINGLEon [id number] PREG ANATOMY SINGLE EXAMINATION: US PREG ANATOMY [...] authenticated by: LUIS ALFREDO GRANT Date: 2022-09-13 16:57[facility] CenterAFP MATERNAL FOR SPINA BIFIDAon 56-97-9207EOM MoM0.42[facility] CenterComment on above:Performed By: #### AFPMAT #### [facility] [address] [address] [address] Emilee Yoder Value16.7 ng/mLNSt. Anthony's HospitalComment on above: Performed By: #### AFPMAT #### [facility] [address] [address] [address] Emilee Yoder, Serum for Spina BifidaReportUpper Valley Medical Center Comment on above:Performed By: #### AFPMAT #### [facility] [address] [address] [address] Emilee BaCincinnati VA Medical CenterComment on above:Result Comment: Pam Machado, Ph.D., [facility] Director . References: Available Upon Request. . Multiples Of Median Cutoffs For AFP Elevations Berkowitz 2.5 Black 2.8 IDD 2.0 Twins 4.5 Abbreviation Definitions IDD - Insulin Dep Diabetes OSBR - Open Spina Bifida Risk . For further inquiries contact [employer] at [phone]. . This test was developed and its performance characteristics determined by [employer]. It has not been cleared or approved by the Food and Drug Administration.Performed By: #### AFPMAT #### [facility] [address] [place] [address] Dr. Emilee Barrow Age Collection Date18.6 weeksUpper Valley Medical Center Comment on above:Performed By: #### AFPMAT #### [facility] [address] [place] [address] Dr. Emilee Barrowat, Age Based [facility] HospitalComment on above:Result Comment: 01/26/2023 Recalculations are not recommended when gestational dating by LMP and ultrasound are within 10 days.Performed By: #### AFPMAT #### [facility] [address] [place] [address] Dr. Emilee Luis Dep DiabetesCincinnati VA Medical CenterComment on above:Result Comment: Not provided. .Performed By: #### AFPMAT #### [facility] [address] [place] [address] Dr. Emilee SpringerInterpretationCincinnati VA Medical CenterComment on above: Result Comment: [...] Customer Services to discuss available options. The [employer] [employer] recommends amniocentesis be offered to women age 35 and older.Performed By: #### AFPMAT #### [facility] [address] [place] [address] Dr. Emilee SpringerMaternakrista Age at EDD[age] yrUpper Valley Medical CenterComment on above:Performed By: #### AFPMAT #### [facility] [address] [place] [address] Dr. Emilee Porras [facility] on above:Result Comment: Not provided. .Performed By: #### AFPMAT #### [facility] [address] [place] [address] Dr. Emilee CanoBR Risk 1 [id number] Health Behavioral Medical Center on above: Performed By: #### AFPMAT #### [facility] [address] [place] [address] Dr. Emilee Galo.NormalThe [facility] on above:Performed By: #### AFPMAT #### [facility] [address] [place] [address] Dr. Emilee FinnCleveland Clinic Foundation on above:Result Comment: Not provided. .Performed By: #### AFPMAT #### [facility] [address] [place] [address] Dr. Emilee Arvizu Results:NegativeNoKettering Health Behavioral Medical Center on above: Performed By: #### AFPMAT #### [facility] [address] [place] [address] Dr. Emilee Aguileraa antibody, IgGon 68-59-3663Repipeg virus IgG Ql (S)314.5 IU/mLCentra Bedford Memorial Hospital on above: REFERENCE RANGE: <5.0 NON-REACTIVE (non-immune) 5.0 TO 9.9 EQUIVOCAL >=10.0 REACTIVE (immune) [facility] B SURFACE ANTIGEN SCREENon 61-16-0909VRgMw Screen NegativeNormalNegativeSumma Health Wad[facility] on above:Performed By: #### HBSANS #### [facility] [address] [place] [address] Dr. Emilee WhalenTIS C VIRUS AB W/ REFLEX QUANTon [id number] AB<0.1Normal 0.0-0.9The [facility] on above:Performed By: #### HCVPCRR #### [facility] [address] [place] [address] Dr. Emilee SpringerInterpretation:CommentNormalThe [facility] on above:Result Comment: Negative Not infected with HCV, unless recent infection is suspected or other evidence exists to indicate HCV infection.Performed By: #### HCVPCRR #### [facility] [address] [place] [address] Dr. Emilee SpringerHIV 1 AND 2 WITH REFLEXon 37-15-7418EPE Screen 4th Generation wRfxNon-ReactiveNormalNon ReactiveThe [facility] on above:Result Comment: HIV Negative HIV-1/HIV-2 antibodies and HIV-1 p24 antigen were NOT detected. There is no laboratory evidence of HIV infection.Performed By: #### CBC #### [facility] [address] [place] [address] Dr. Emilee SpringerRPR QUANTon 82-95-9794Ctlfp Plasma Reagin, QuantNon-Reactive NormalNonRea<1:1The [facility] on above:Result Comment: Please Note: This test does not meet current guidelines for screening and diagnosis of syphilis. This test is intended for following treatment response in patients being treated for syphilis infection. To screen for syphilis infection, a reflex cascade that includes both RPR and a treponema-specific assay should be utilized, such as Treponema pallidum (Syphilis) Screening [place] (091032) or Rapid Plasma Reagin (RPR) Test With Reflex to Quantitative RPR and Confirmatory Treponema pallidum Antibodies (421720).Performed By: #### CBC #### [facility] [address] [place] [address] Dr. Emilee BustillosBELLA AB IGGon 64-76-0383Iikwrgn Antibodies, IgG5.03 index NormalImmune >0.99The [facility] on above:Result Comment: Non- immune <0.90 Equivocal 0.90 - 0.99 Immune >0.99Performed By: #### RUBIGG #### [facility] [address] [place] [address] Dr. Emilee SpringerCBC AUTO DIFFon 14-32-1481TQYM #0.0 103/ulNormal0.0-0.1The [facility] HospitalComment on above:Performed By: #### GLU1HR #### [facility] [address] [place] [address] Dr. Emilee SpringerBasophils/100 WBC (Bld)0.2 %Normal0.2-2.0The [facility] Comment on above:Performed By: #### GLU1HR #### [facility] [address] [place] [address] Dr. Emilee Weldon #0.1 103/ulNormal0.0-0.7The [facility] HospitalComment on above: Performed By: #### GLU1HR #### [facility] [address] [place] [address] Dr. Emilee Cintronosinophils/100 WBC (Bld)0.9 %Normal0.9-7.0The [facility] Comment on above:Performed By: #### GLU1HR #### [facility] [address] [place] [address] Dr. Emilee Cintronrythrocyte distribution width (RBC) [Ratio]11.9 %Saotvs82.0-15.0 The [facility] HospitalComment on above:Performed By: #### GLU1HR #### [facility] [address] [place] [address] Dr. Emilee SpringerHematocrit (Bld) [Volume fraction]32.9 %Critically low36.0-48.0 The [facility] HospitalComment on above:Performed By: #### GLU1HR #### [facility] [address] [place] [address] Dr. Emilee SpringerHemoglobin (Bld) [Mass/Vol]11.6 g/dLCritically low12.0-16.0The [facility] HospitalComment on above:Performed By: #### GLU1HR #### [facility] [address] [place] [address] Dr. Emilee Van #0.03 10e3/ulNormal0.00-0.03The [facility] HospitalComment on above:Performed By: #### GLU1HR #### [facility] [address] [address] [address] Emilee Van %0.3 %Normal0.0-0.5The [facility] HospitalComment on above: Performed By: #### GLU1HR #### [facility] [address] [place] [address] Dr. Emilee Renae #2.1 103/ulNormal1.2-3.8The [facility] HospitalComment on above:Performed By: #### GLU1HR #### [facility] [address] [place] [address] Dr. Emilee Danielhocytes/100 WBC (Bld)20.2 %Critically low20.5-60.0The [facility] HospitalComment on above:Performed By: #### GLU1HR #### [facility] [address] [place] [address] Dr. Emilee PenningtonUAL DIFF REQNONormalThe [facility] HospitalComment on above: Performed By: #### GLU1HR #### [facility] [address] [place] [address] Dr. Emilee Guevara (RBC) [Entitic mass]31.4 gaMmyetm26.7-34.0The [facility] HospitalComment on above:Performed By: #### GLU1HR #### [facility] [address] [place] [address] Dr. Emilee Guevara (RBC) [Mass/Vol]35.3 g/dLCritically high29.9-35.2The [facility] HospitalComment on above:Performed By: #### GLU1HR #### [facility] [address] [place] [address] Dr. Emilee Guevara (RBC) [Entitic vol]89.2 xWChealt86.0-99.0The [facility] HospitalComment on above:Performed By: #### GLU1HR #### [facility] [address] [place] [address] Dr. Emilee Banegas #0.7 103/ulNormal0.3-0.8The [facility] HospitalComment on above:Performed By: #### GLU1HR #### [facility] [address] [place] [address] Dr. Emilee Hightowerocytes/100 WBC (Bld)7.0 %Normal1.7-12.0The [facility] Comment on above:Performed By: #### GLU1HR #### [facility] [address] [place] [address] Dr. Emilee Fernandez #7.5 103/ulCritically high1.4-6.5The [facility] Comment on above:Performed By: #### GLU1HR #### [facility] [address] [place] [address] Dr. Emilee Meeksutrophils/100 WBC (Bld)71.4 %Fbjbwn46.0-75.0The [facility] HospitalComment on above:Performed By: #### GLU1HR #### [facility] [address] [place] [address] Dr. Emilee Olmedolet mean volume (Bld) [Entitic vol]9.1 fLCritically low 9.5-13.5The [facility] HospitalComment on above:Performed By: #### GLU1HR #### [facility] [address] [place] [address] Dr. Emilee SpringerPLT311 103/ewPrbcyt041-976Jep [facility] HospitalComment on above: Performed By: #### GLU1HR #### [facility] [address] [place] [address] Dr. Emilee SpringerRBC3.69 106/ulCritically low4.20-5.40The [facility] HospitalComment on above:Performed By: #### GLU1HR #### [facility] [address] [place] [address] Dr. Emilee SpringerWBC10.5 103/ulNormal4.0-11.0The [facility] HospitalComment on above:Performed By: #### GLU1HR #### [facility] [address] [place] [address] Dr. Emilee Deluna URINEon 62-93-2840JVFZRWF URINECulture Observations: LIGHT GROWTH OF MIXED GENITAL BREN. NO POTENTIAL PATHOGENS SEEN.NormalSouthern Ohio Medical CenterComment on above:Performed By: #### GLU1HR #### [facility] [address] [place] [address] Dr. Emilee SpringerGLYCOHEMOGLOBIN A1Con 88-58-5563UQN RECOMMENDATIONSEE BELOWNormal The [facility] HospitalComment on above:Result Comment: ADA RECOMMENDED LIMIT 4.0 - 6.0 ADA THERAPEUTIC TARGET < 7.0 ACTION SUGGESTED > 7.0Performed By: #### A1C #### [facility] [address] [place] [address] Dr. Emilee SpringerGlucose [Mass/Vol]108 mg/dLUpper Valley Medical CenterComment on above:Performed By: #### A1C #### [facility] [address] [place] [address] Dr. Emilee SpringerHbA1c (Bld) [Mass fraction]5.4 %Normal4.5-6.2The [facility] HospitalComment on above:Performed By: #### A1C #### [facility] [address] [place] [address] Dr. Emilee Alonzo BOX TEST PT SEND OUTon 56-46-1165WXAG TO REF LAB07/04/2022 NormalSouthern Ohio Medical CenterComment on above:Performed By: #### NBOX #### [facility] [address] [place] [address] Dr. Emilee SpringerTYPE AND SCREENon 72-36-1816EKXN AND SCREENNegativeNoMercy Health St. Anne HospitalComment on above:Performed By: #### GLU1HR #### [facility] [address] [place] [address] Dr. Emilee SpringerUS PREG TVon 28-68-5093FQ PREG TVEXAMINATION: US PREG TV HISTORY: test [...] Electronically authenticated by: YELENA CARLOS Date: 2022-06-23 17:00Upper Valley Medical CenterHCG, Quantitative, Pregnancyon 37-06-6515wKZ Xuxzp73075HjwySTGH UVA HEALTH UNIVERSITY HOSPITALCommclaren greater [facility] on above: Non-preg premeno <=5 Postmeno <=8 Male <=3 If HCG results do not concur with clinical observations, additional testing to confirm results is recommended. Interpretation and review of laboratory resultsAbnormalHENRICO [facility] ACOG PANEL 2: 21 to 29on 04-24-2022..NormalSouthern Ohio Medical CenterCommclaren greater lansing hospital on above:Performed By: #### [id number] #### [facility] [address] [place] [address] Dr. Emilee Black Gdln ACOG Eyqxkcx98-68QznrhpQoqMercy Health St. Anne HospitalComment on above:Performed By: #### [id number] #### [facility] [address] [place] [address] Dr. Emilee SpringerDIAGNOSIS:CommentNoKettering Health Behavioral [facility] Center on above: Result Comment: NEGATIVE FOR INTRAEPITHELIAL LESION OR MALIGNANCY. CELLULAR CHANGES ASSOCIATED WITH INFLAMMATION ARE PRESENT.Performed By: #### [id number] #### [facility] [address] [place] [address] Dr. Emilee SpringerMethodology:CommentNormSt. Vincent Hospital on above: Result Comment: This liquid based ThinPrep(R) pap test was screened with the use of an image guided system.Performed By: #### [id number] #### [facility] [address] [place] [address] Dr. Emilee SpringerNote:CommentProMedica Toledo Hospital on above:Result Comment: The Pap smear is a screening test designed to aid in the detection of premalignant and malignant conditions of the uterine cervix. It is not a diagnostic procedure and should not be used as the sole means of detecting cervical cancer. Both false-positive and false-negative reports do occur. .Performed By: #### [id number] #### [facility] [address] [place] [address] Dr. Emilee SpringrePerformed by:CommentProMedica Toledo Hospital on above: Result Comment: Mary Lou Adams, CytotechnologistPerformed By: #### [id number] #### [facility] [address] [place] [address] Dr. Emilee SpringerReflex Criteria:CommentProMedica Toledo Hospital on above:Result Comment: The HPV DNA reflex criteria were not met with this specimen result therefore, no HPV testing was performed. .Performed By: #### [id number] #### [facility] [address] [place] [address] Dr. Emilee SpringerSpecimen adequacy:CommentProMedica Toledo Hospital on above:Result Comment: Satisfactory for evaluation. Endocervical and/or squamous metaplastic cells (endocervical component) are present.Performed By: #### [id number] #### [facility] [address] [place] [address] Dr. Emilee SpringerHCG, Quantitative, Pregnancyon 29-41-3005zUN Avwoq39Cupb<5 IU/L [facility] on above: Non-preg premeno <=5 Postmeno <=8 Male <=3 If HCG results do not concur with clinical observations, additional testing to confirm results is recommended. Elevated results not associated with may be found in patients with other diseases such as tumors of the germ cells (testis, ovaries, etc.), bladder, pancreas, stomach, lungs, and liver. Interpretation and review of laboratory resultsAbnoFroedtert Hospital RENAL COMPLETEOrdered By: Lorena Ricks on 90-91-0260Ullifwebjxsr ultrasound of the kidneys and urinary bladder.[facility] [employer] Work Phone: eXAMINATION: RETROPERITONEAL ULTRASOUND OF THE KIDNEYS AND URINARY BLADDER 11/25/2020 COMPARISON: None HISTORY: ORDERING SYSTEM PROVIDED HISTORY: Frequent UTI TECHNOLOGIST PROVIDED HISTORY: This procedure can be scheduled via [employer]. Access your [employer] account by visiting [employer]. FINDINGS: Kidneys: The right kidney measures 11.1 cm in length and the left kidney measures 11.6 cm in length. Kidneys demonstrate normal cortical echogenicity. No evidence of hydronephrosis or intrarenal stones. Bladder: Unremarkable appearance of the bladder. No significant post void residual.[employer] Phone: edi, pn Incoming Radiant Results From [employer] - 11/25/2020 3:59 PM EDT EXAMINATION: RETROPERITONEAL ULTRASOUND OF THE KIDNEYS AND URINARY BLADDER 11/25/2020 COMPARISON: None HISTORY: ORDERING SYSTEM PROVIDED HISTORY: Frequent UTI TECHNOLOGIST PROVIDED HISTORY: This procedure can be scheduled via [employer]. Access your [employer] account by visiting [employer]. FINDINGS: Kidneys: The right kidney measures 11.1 cm in length and the left kidney measures 11.6 cm in length. Kidneys demonstrate normal cortical echogenicity. No evidence of hydronephrosis or intrarenal stones. Bladder: Unremarkable appearance of the bladder. No significant post void residual. IMPRESSION: Unremarkable ultrasound of the kidneys and urinary bladder. [employer] Phone: [employer] 23-28-7232Favqq [id number]#1.00CD:127NoMercy Health Kings Mills HospitalAmbulatory Clinical Summaryon 41-43-3314Zmlodiakor Clinical Summary {81-dl-es-ex-sp-19-13-41-u5-9b-f1-35-5a-16-ce-86}CD:[id number] Health Kings Mills HospitalGeneral Surgery Office/Clinic Noteon 42-14-3079Lefedpi Surgery Office/Clinic NoteChief Complaint post operative follow up HPI Staff 8 day post operative follow up post lap appendectomy completed while in-patient at [facility]. Doing well. Minimal discomfort. Taking Ibuprofen [...] available Patient Education Exercise to Lose Weight, Udif-kh-Qeaq Problem List/Past Medical History Ongoing Acute appendicitis [...] Use:., 10/13/2020 Family History Family history is negativeNoMercy Health Kings Mills HospitalComment on above: Result Comment: Electronically Signed By: LATANYA MCKENNA, Sushant Simpson.nani\Date and Time Signed: 10/13/20 13:39 EDTPatient Educationon 60-43-9484Tjgbqge Education Exercise to Lose Weight Exercise and [...] Document Reviewed: 08/12/2011 ExitCare? Patient Information ?2013 [employer] [facility] CenterProvider Letter FTon 39-43-9169Svtxgwxw Letter [facility] [place] 13, 2020 VINNY VERMA [address] [place] [address] VINNY VERMA 2000 To Whom It May Concern, Please excuse above patient from work 10/14/20. Sincerely, Dr. Sushant Lott MD General SurgeryNoMercy Health Kings Mills HospitalPathology Noteon 10-08-2020 Pathology [id number]#1.00CD:[address] [place], [place] [address]Facesheeton 06-16-6057Dqfwuooob [id number]:[address] [place], [place] [address]Operative Reporton 60-59-1956Goitowzlg Report [id number]#1.00CD:[address] [place], [place] [address]HIV Screenon 51-58-2160XLN Ag/AbNONREACTIVENONREACTIVEMemorial Hospital, [place] Comment on above:No laboratory evidence of HIV infection. If acute HIV infection is suspected, consider testing for HIV-1 RNA. Basic Metabolic Panelon 71-12-9177Avzdk gap [Moles/Vol]11 mmol/L9 - 17 mmol/L [facility], KYBun/Cre Keahp50OxannMemorial Hospital, KYCalcium [Mass/Vol]9.3 mg/dL8.6 - 10.4 mg/dLMemorial Hospital, KYChloride [Moles/Vol]103 mmol/L98 - 107 mmol/LMercy Health- [place], KYCO2 [Moles/Vol]23 mmol/L20 - 31 mmol/LMCincinnati VA Medical Center- [place], KYCreatinine [Mass/Vol]0.57 mg/dL0.5 - 0.9 mg/dLMemorial Hospital, KYGFR >60>60 mL/minMemorial Hospital, KYGFR Non->60>60 mL/minMemorial Hospital, KYGlucose [Mass/Vol]88 mg/dL70 - 99 mg/dLMemorial Hospital, KYPotassium [Moles/Vol]4.6 mmol/L3.7 - 5.3 mmol/LMAdams County Hospital [place], KYSodium [Moles/Vol]137 mmol/L135 - 144 mmol/[facility] [place], KYUrea nitrogen [Mass/Vol]11 mg/dL6 - 20 mg/dLMemorial Hospital, MSCBCon 14-84-6475Laygpyndisy distribution width (RBC) [Ratio]11.7 %Low11.8 - 14.4 %[facility], [place] Hematocrit (Bld) [Volume fraction]36.4 %36.3 - 47.1 %[facility] [place] Hemoglobin (Bld) [Mass/Vol]12.2 g/dL11.9 - 15.1 g/dLMemorial Hospital, [place] Interpretation and review of laboratory resultsAbnormalMemorial Hospital, MSMCH (RBC) [Entitic mass]31.4 pg25.2 - 33.5 pgMemorial Hospital, MSMCHC (RBC) [Mass/Vol]33.5 g/dL28.4 - 34.8 g/dLMemorial Hospital, MSMCV (RBC) [Entitic vol] 93.8 fL82.6 - 102.9 fLMemorial Hospital, MSPlatelet mean volume (Bld) [Entitic vol]9.2 fL8.1 - 13.5 fLMemorial Hospital, MSPlatelets (Bld) [#/Vol]307 10*3/uL [facility], MSRBC (Bld) [#/Vol]3.88 10*6/uLLow3.95 - 5.11 m/uLColeridge, KYWBC (Bld) [#/Vol]7.2 10*3/uLColer[place], KYWBC (Bld) [#/Vol] 0.0 10*3/uL0.0 per 100 WBCColeridge, KYMetabolic Panelon 05-04-2020 GFR/1.73 sq M predicted among non-blacks MDRD (S/P/Bld) [Vol rate/Area][place], KYComment on above:Stage 1: Some kidney damage [...] body mass. Additional eGFR calculator available at: http://www.[employer]/multiple_crcl_2012.htm [facility] 06-13-3552UFV Qn2.22 m[IU]/LMBlessing, [place] Vital Signs Date TimeVital SignValuePerforming NwdmntixdZqyuuirj76-94-7678 15:05-0400Body mass index (BMI) [Ratio]37.47 kg/b7Vpbkl CaterCow Work Phone: ZentyalSaint John's Regional Health CenterNmxchhqjyz38-08-3102 15:05-0400Body qnymmk145.29 kgCorey LawReplise Work Phone: ZentyalSaint John's Regional Health CenterFapbngzasc42-86-8939 15:05-0400Diastolic blood frxlebkj53 mm[Hg]Mukul CaterCow Work Phone: ZentyalSaint John's Regional Health CenterDydzcibsjg02-02-2412 15:05-0400Systolic blood umsghqun000 mm[Hg]Mukul CaterCow Work Phone: noSaint John's Regional Health CenterWdckahcony07-79-5542 15:11-0400Body mass index (BMI) [Ratio]36.7 kg/i0TdjsdjbjCeasar Li CORE STACKER Work Phone: [facility] CenterVvqhzybltu75-75-4768 15:11-0400Body hgogvb662.15 kgDanieldaly Millererly CORE STACKER Work Phone: [facility] CenterSpcfonfeys70-36-7141 15:11-0400Diastolic blood tnivwxmp01 mm[Hg]Ceasar Millererly CORE STACKER Work Phone: [facility] CenterFbpsciriqc24-99-9567 15:11-0400Systolic blood cvkgartr052 mm[Hg]Ceasar Millererly CORE STACKER Work Phone: [phone] [place], [place] [address]Pcvnhcbvct09-41-7080 15:50-0400Body mass index (BMI) [Ratio]36.64 kg/m2Amy Oralia PA Work Phone: [phone]-[facility] CenterFsoihortyn27-75-8945 15:50-0400Body qztsar161.97 kgAmy [place] PA Work Phone: [phone]-[facility] CenterTvkagczgvp62-36-7481 15:50-0400Diastolic blood iicrtxmp10 mm[Hg]Regina Oralia PA Work Phone: [phone] [place], [place] [address]Rtxlrodxri39-99-4677 15:50-0400Systolic blood myworymy636 mm[Hg]Regina Oralia PA Work Phone: [phone] [place], [place] [address]Coaohjvswh48-31-5714 15:44-0400Body mass index (BMI) [Ratio]36.61 kg/m2Amy Oralia PA Work Phone: [phone]-[facility] CenterKrxgnrxsik71-80-4777 15:44-0400Body akpstp120.88 kgAmy [place] PA Work Phone: [phone] [place], [place] [address]Xolrrtzgev35-08-9769 15:44-0400Diastolic blood ilxfxekx65 mm[Hg]Regina [place] PA Work Phone: [phone] [place], [place] [address]Axwtcdmpuf06-38-7267 15:44-0400Systolic blood mm[Hg]Regina Oralia PA Work Phone: [facility] CenterNudtmclmeb13-50-1150 16:08-0400Body mass index (BMI) [Ratio]36.12 kg/c9HlaxvMukul Foy DO Work Phone: [phone] [place], [place] [address]Eeyaajoqhp87-07-1154 16:08-0400Body fkleue242.52 kgCorey Law DO Work Phone: [phone] [place], [place] [address]Ytkpuoktrx63-00-6722 16:08-0400Diastolic blood sosnzdte51 mm[Hg]Mukul Law DO Work Phone: [phone] [place], [place] [address]Jdfkfzwkwo13-28-8542 16:08-0400Systolic blood mm[Hg]Mukul Law DO Work Phone: [phone] [place], [place] 9734808-06-2025 15:58-0400Body mass index (BMI) [Ratio]35.96 kg/g4Wukos Law DO Work Phone: [phone] [place], [place] [address]Aqqocuxnvp35-25-0056 15:58-0400Body whklyv089.06 kgCorey Law DO Work Phone: [phone] [place], [place] [address]Ybscaqizfk52-21-9018 15:58-0400Diastolic blood lnkktyxy87 mm[Hg]Mukul Law DO Work Phone: [phone] [place], [place] 9734808-06-2025 15:58-0400Systolic blood coeliari738 mm[Hg]Mukul Law DO Work Phone: [phone] [place], [place] [address]Mmlnjlatxl81-03-1456 14:06-0400Body mass index (BMI) [Ratio]34.99 kg/d7Zrxtu Law DO Work Phone: [phone])[facility] [place], [place] [address]Ffqmbwpswx28-03-4313 14:06-0400Body ejarif42.34 kgCorey Law DO Work Phone: [phone] [place], [place] [address]Xcpyvzjrjr12-36-0641 14:06-0400Diastolic blood vwdyunpo16 mm[Hg]Mukul Law DO Work Phone: [phone] [place], [place] [address]Skpoxtsdzs67-45-8398 14:06-0400Systolic blood brfpolcc546 mm[Hg]Mukul Law DO Work Phone: [phone] [place], [place] [address]Vlywwbaons85-68-6929 16:41-0400Body mass index (BMI) [Ratio]34.19 kg/k2Xmodu Law DO Work Phone: [facility] CenterZgelxegzsu45-17-6265 16:41-0400Body mmjbil34.07 kgCorey Law DO Work Phone: [phone] [place], [place] [address]Uewrzxsnyw97-40-1291 16:41-0400Diastolic blood mm[Hg]Mukul Law DO Work Phone: [facility] CenterRwjbnufyej07-67-9927 16:41-0400Systolic blood xopvqejb836 mm[Hg]Mukul Law DO Work Phone: [phone] [place], [place] [address]Iarzppivgz76-35-6773 16:15-0400Body mass index (BMI) [Ratio]34.22 kg/o3Sgqlp Law DO Work Phone: [phone] [place], [place] [address]Zjszeuxvlx13-60-4973 16:15-0400Body hxuzlt13.16 kgCorey Law DO Work Phone: [phone] [place], [place] [address]Deolivftqx59-73-9561 16:15-0400Diastolic blood oysuxerl10 mm[Hg]Mukul Law DO Work Phone: [phone] [place], [place] [address]Baqanycgcq79-48-5547 16:15-0400Systolic blood dyvsqxwp634 mm[Hg]Mukul Law DO Work Phone: [phone] [place], [place] [address]Cmucksyjaf82-07-5407 15:15-0400Body mass index (BMI) [Ratio]33.57 kg/m2[facility]04-24-2025 15:15-0400Body .35 kgThe [facility]04-24-2025 15:15-0400Diastolic blood gbjywsjg14 mm[Hg][facility]04-24-2025 15:15-0400Systolic blood ugvfrrch459 mm[Hg][facility]12-23-2024 16:25-0500Body mass index (BMI) [Ratio]32.93 kg/d8Qxxhi Law DO Work Phone: [facility] CenterJslwhjigqb09-78-0687 16:25-0500Body xjutut43.53 kgCorey Law DO Work Phone: [facility] CenterRtpmmmvmst20-57-9709 03:06-0500Body dumryz31.8024 kgDR MUKUL FOY .[facility] HospitalComment on above:Performed By: #### AFPMAT #### [facility] [address] [place] [address] Dr. Emilee Springer Encounters Encounter DateEncounter TypeCare ProviderFacilityStart: 05-14-2025 End: 90-21-2199ycivhaenmrNQRHD FAZIONot AvailableStart: 05-14-2025 End: 25-41-4451Ncbfmzqt flow sheetCorey Law DO Work Phone: [facility] Heri OBGYNComment on above:Third trimester ([facility] 34 weeks gestation of ([facility]); Insulin controlled gestational diabetes mellitus (GDM) during , antepartum ([facility]); Gestational diabetes mellitus (GDM), antepartum, gestational diabetes method of control unspecified([facility])Start: 05-14-2025 End: 73-44-6566Dvciya flowsheetCorey Law DO Work Phone: [facility] [place] OBGYNStart: 05-14-2025 End: 32-74-3826Zgginh flowsheetCorey Law DO Work Phone: [facility] [place] OBGYNStart: 04-30-2025 End: 72-78-1635vrsdzpsdpfCHBMGBFN EBERLYNot AvailableStart: 04-30-2025 End: 03-09-8205Mptvtwzi flow sheetCeasar Li CORE STACKER Work Phone: [facility] [place] OBGYNComment on above:Third trimester ([facility]); 32 weeks gestation of ([facility])Start: 04-30-2025 End: 60-02-8893Rrkfzs Dani Li CORE STACKER Work Phone: [facility] [place] OBGYNStart: 04-30-2025 End: 94-84-8466Lukkok Dani Li CORE STACKER Work Phone: [facility] OBGYNStart: 04-30-2025 End: 39-49-8006Aurngvhxr Result EncounterCorevicki Foy DO Work Phone: noms External Department UnsolicitedStart: 04-14-2025 End: 08-77-9610gxmttfqzpeTCH RAMEYNot AvailableStart: 04-14-2025 End: 41-01-0273Clbgyxpu flow sheetRegina RUIZ Work Phone: [facility] [place] OBGYNComment on above:Third trimester ([facility]); 30 weeks gestation of ([facility])Start: 04-14-2025 End: 85-26-5715Lffvgn Darek RUIZ Work Phone: [facility] OBGYNStart: 04-14-2025 End: 51-04-3733Rxzjnm vaibhavLandon RUIZ Work Phone: [facility] [place] OBGYNStart: 04-05-2025 End: 86-35-6213Qaivzapfa Result EncounterAmy Oralia JOSEPH Work Phone: noms External Department UnsolicitedStart: 04-05-2025 End: 36-64-5523Nuwapuuij Result EncounterAmy Oralia JOSEPH Work Phone: noms External Department UnsolicitedStart: 04-03-2025 End: 57-09-2753nhyeedbbidVPF RAMEYNot AvailableStart: 04-03-2025 End: 17-07-6854Uhakbdbc flow katherineRegian Oralia JOSEPH Work Phone: [facility] [place] OBGYNComment on above:28 weeks gestation of ([facility]); Third trimester ([facility]); Dizziness; Gestational diabetes mellitus (GDM), antepartum, gestational diabetes method of control unspecified([facility]); History of miscarriage; Anemia, unspecified type; UTI symptomsStart: 04-03-2025 End: 34-07-2411Ttnase Darek RUIZ Work Phone: [facility] OBGYNStart: 04-03-2025 End: 71-19-4153Vgqvvi flowsheetAmy Oralia PA Work Phone: [facility] [place] OBGYNStart: 03-12-2025 End: 02-29-1946vnscgpxuauJMQLN FAZIONot AvailableStart: 03-12-2025 End: 52-16-2859Qrwrguoa flow sheetCorey Law DO Work Phone: [facility] [place] OBGYNComment on above:25 weeks gestation of ([facility]); Second trimester ([facility]); Gastroesophageal reflux disease without esophagitisStart: 03-12-2025 End: 99-13-2941Hqswyw flowsheetCorey Law DO Work Phone: [facility] [place] OBGYNStart: 03-12-2025 End: 20-50-8974Obvukf flowsheetCorey Law DO Work Phone: [facility] [place] OBGYNStart: 02-26-2025 End: 10-58-3399elyybcnbpvPVDWN FAZIONot AvailableStart: 02-26-2025 End: 03-68-4506Lempqldm flow sheetCorey Law DO Work Phone: [facility] [place] OBGYNComment on above:23 weeks gestation of ([facility]); Elevated blood sugar level; Gastroesophageal reflux disease without esophagitisStart: 02-26-2025 End: 03-45-7484Yjqqvm flowsheetCorey Law DO Work Phone: [facility] [place] OBGYNStart: 02-26-2025 End: 24-95-4994Wpqtih flowsheetCorey Law DO Work Phone: [facility] [place] OBGYNStart: 02-11-2025 End: 36-21-7244Cmohkemd flow sheetCorey Law DO Work Phone: [facility] BCP OBComment on above:Second trimester ([facility]); 20 weeks gestation of ([facility])Start: 02-11-2025 End: 43-48-0467dypmmkqggvBJVKH FAZIONot AvailableStart: 01-15-2025 End: 09-08-3522abyhycfnvwEHKXH FAZIONot AvailableStart: 01-15-2025 End: 25-95-0377Onioqvle flow sheetCorey Law DO Work Phone: [facility] OBComment on above:Second trimester ([facility]); 17 weeks gestation of ([facility]); Vaginal discharge; STD exposure; Screening, , for anatomic survey ([facility]); Gastroesophageal reflux in ([facility]); Gestational diabetes mellitus (GDM), antepartum, gestational diabetes method of control unspecified([facility])Start: 01-15-2025 End: 92-61-2296Xmlpzz flowsheetCorey Law DO Work Phone: noms BCP OBStart: 01-15-2025 End: 05-71-4854Mwwquo flowsheetCorey Law DO Work Phone: noms BCP OBStart: 01-15-2025 End: 22-28-7928Bewhtfxg Result EncounterAmy Oralia [place] Work Phone: noms External Department UnsolicitedStart: 01-07-2025 End: 20-53-9639gjnechiqlqMZSYGLHallie Lamas [place] HospitalStart: 01-07-2025 End: 61-51-8113Kooucnpkeg hospital visit by Kayden Steele CNP Work Phone: [facility] LABStart: 12-23-2024 End: 65-09-4298Ypipjmwys Result EncounterCorey Law DO Work Phone: noms External Department UnsolicitedStart: 12-23-2024 End: 26-98-0861Kuvwkoxmz Result EncounterCorey Law DO Work Phone: noms External Department UnsolicitedStart: 12-20-2024 End: 72-33-1932zvsylajabaXCUNGIHallie Lamas [place] HospitalStart: 12-20-2024 End: 85-94-0652Drtemdogyw hospital [facility] by [facility]Sam[facility] Ultrasound [facility] UltrasoundComment on above:Subchorionic hematoma, antepartum, first trimester, not applicable or unspecified fetusStart: 12-18-2024 End: 53-61-5462uvswtvxemuKVTUB FAZIONot AvailableStart: 12-18-2024 End: 50-12-2450Cewymogg flow sheetCorey Law DO Work Phone: noms BCP OBComment on above:Second trimester ; 12 weeks gestation of ; Subchorionic hematoma in first trimester, single or unspecified fetus; Diabetes mellitus screeningStart: 12-18-2024 End: 16-88-6875Inynme flowsheetCorey Law DO Work Phone: noms BCP OBStart: 12-18-2024 End: 56-06-3990Shhpgr flowsheetCorey Law DO Work Phone: noms BCP OBStart: 11-14-2024 End: 41-46-4449Jtgicu outpatient visit 5 minutesNoms Bcp Ob Law NurseNOMS BCP OBComment on above:GA: 7x1vMblze: 11-14-2024 End: 07-20-7001edeejwwdgtCUDPD FAZIONot AvailableStart: 07-15-2024 End: 07-11-6687Fsxmeij encounter procedureCorey Law DO Work Phone: noms HealthcareStart: 07-15-2024 End: 61-13-3389Ltmvrffv preventive med est patient 18-39 yrsCorey Law DO Work Phone: noms BCP OBComment on above:Well woman exam with routine gynecological examStart: 07-15-2024 End: 06-74-4872kditsfnfdfXOEGD FAZIONot AvailableStart: 07-15-2024 End: 82-50-5086Dwqqluslj Result EncounterCorey Law DO Work Phone: noms External Department UnsolicitedStart: 07-15-2024 End: 01-98-3575Qivdowszn Result EncounterCorey Law DO Work Phone: NOQD External Department UnsolicitedStart: 05-20-2024 End: 00-27-7211vuhrgmltxuHVZHSWHallie [place] HospitalStart: 05-20-2024 End: 16-62-5436Gklmbxeybx hospital visit by Kayden Rodriguez APRN - GENERAL CLAIMS AGENT Work Phone: mthz LaboratoryComment on above:Elevated liver enzymes; Mixed hyperlipidemiaStart: 03-06-2024 End: 44-02-0198rkiinmgpfwWIIZKNShanda Cortés HospitalStart: 02-16-2024 End: 07-14-8566etiycmxihdSFJTJWShanda Cortés HospitalStart: 08-06-2023 End: 48-63-0384wvrmzjqjveQrnyvvmc:[facility] Hospitaltart: 07-11-2023 End: 47-85-3824shttvfulrwQLKW [facility] Daytontart: 03-20-2023 End: 53-51-7197etxipuodvvYHBOL [facility] Centertart: 12-17-2022 End: 26-43-6166aiahylxxuuQY MUKUL LAW .Facility:F4Mtssb: 12-12-2022 End: 89-28-9225amikyugyibFS KYLIE SEYMOUR .Facility:F4Wyimj: 12-10-2022 End: 96-39-0336otafqhsshfXF MUKUL LAW .Facility:M8Ouwrj: 10-31-2022 End: 07-51-7306pfedqstmukNG MUKUL LAW .Facility:G6Synxo: 10-22-2022 End: 52-80-5732xyiewqmtitYIJ ORALIA .Facility:Y0Cyojt: 10-15-2022 End: 40-79-7224dcbuxeascgEX MUKUL LAW .Facility:X9Tzynq: 09-12-2022 End: 49-52-8519rgwwuemcjqFA MUKUL LAW .Facility:P9Ezrbz: 09-10-2022 End: 43-42-1403ldvfznbnyjPY MUKUL LAW .Facility:W6Enegk: 08-29-2022 End: 80-10-8426dnmarbcxcgRX MUKUL LAW .Facility:O5Epzfu: 08-01-2022 End: 76-46-4682Ydfdbzpkhs hospital visit by ILGANGA LaboratoryStart: 07-04-2022 End: 52-60-2981melphgvhxuEG MUKUL LAW .Facility:F7Xbeso: 06-23-2022 End: 09-91-9233pcpefpkvzyNR YELENA Henao WESTFacility:Y7Pwqxf: 06-09-2022 End: 26-91-4323nandiuosjrIR MUKUL LAW .Facility:U3Exdhj: 06-02-2022 End: 84-09-3676Rrgptejyas hospital visit by Kayden Steele CNP Work Phone: mthz LaboratoryStart: 04-18-2022 End: 89-30-4336iabgndileuYH MUKUL LAW .Facility:Z2Cnrck: 09-23-2021 End: 93-48-3947uwhafxdxblLXUWS CHCEO [facility] HospitalStart: 09-08-2021 End: 36-77-2230piwljnuylhXHHRM R FAZIORiverside Muslim HospitalStart: 08-25-2021 End: 86-77-5449tjkowvyfaePFQKP R FAZIORiverside Muslim HospitalStart: 08-19-2021 End: 70-35-7558cppykdvxedOMDAY R FAZIORiverside Muslim HospitalStart: 08-10-2021 End: 30-66-3033Zmlyrklykz hospital visit by Kayden Steele CNP Work Phone: mthz LaboratoryComment on above:AmenorrheaStart: 11-25-2020 End: 72-05-2175Orealrglmo hospital visit by [facility] RadiologyComment on above:Frequent UTIStart: 05-04-2020 End: 47-71-3819Ciabzpwmhf hospital visit by Kayden Chapman LaboratoryComment on above:Encounter for screening for HIV; Other fatigue; Wellness examinationStart: 03-03-2020 End: 38-84-0393Wficschmlt hospital visit by Brayden Dickinson LaboratoryComment on above:Screening for cervical cancer; Encounter for annual routine gynecological examination Procedures DateProcedureProcedure DetailPerforming ClinicianStart: 16-50-7922Vztdq dip stick/tablet rgnt non-auto w/o micrscpCorey Law DO Work Phone: Start: 68-79-4121KK OB BPP W NON-STRESSCorey Law DO Work Phone: Start: 86-92-5997Guixb dip stick/tablet rgnt non-auto w/o micrscpKristina Guillermo CHRISTOPHER Work Phone: Start: 71-79-8827Hidqf dip stick/tablet rgnt non-auto w/o micrscpAmy Oralia RUIZ Work Phone: Start: 10-20-4962QQ OB GROWTHRegina RUIZ Work Phone: Start: 76-53-4322EJV CBC WITH AUTO DIFFRegina RUIZ Work Phone: Start: 61-53-7403Ejuiz dip stick/tablet rgnt non-auto w/o micrscpAaric RUIZ Work Phone: Start: 13-03-5898Zwevr dip stick/tablet rgnt non-auto w/o micrscpCorey Law DO Work Phone: Start: 20-80-4986Saxtc dip stick/tablet rgnt non-auto w/o micrscpCorey Law DO Work Phone: Start: 25-56-2966Swqqy dip stick/tablet rgnt non-auto w/o micrscpCorey Law DO Work Phone: Start: 89-19-8228ZGZPMNTER VAGINITIS (HTRX)Regina RUIZ Work Phone: Start: 93-99-7790Lauto count complete automatedRegina Barton PA-C Work Phone: Start: 34-30-0736KG OB LESS THAN 14 WEEKS SINGLE OR FIRST GESTATIONCorey Law DO Work Phone: Start: 57-70-1548Emefz dip stick/tablet rgnt non-auto w/o micrscpCorey Law DO Work Phone: Start: 87-61-8882Icbgn dip stick/tablet rgnt non-auto w/o micrscpCorey Law DO Work Phone: Start: 38-59-2980YPP,APTIMA HPV,AGE GDLNCorey Law DO Work Phone: Start: 20-13-0208Mlrbnvwmqkq observation [Identifier] in Cervix by Cyto Leonora Rodriguez LANDSCAPING CREW LEADER - [facility] Work Phone: Start: 58-93-9020Aupts panelYnes Rodriguez LANDSCAPING CREW LEADER - [employer] CLAIMS [employer]ENT Work Phone: Start: 92-54-5942Dijgxwyavlzhr metabolic Nancy Rodriguez LANDSCAPING CREW LEADER - GENERAL CLAIMS AGENT Work Phone: Start: 50-48-3583Fdyckeexpmh observation [Identifier] in Cervix by Cyto stainSamaritan Medical Center RoomStart: 11-57-2899Ebgjcymb Navid Barroso LANDSCAPING CREW LEADER - [facility] Work Phone: Start: 73-09-2630Sqjbewobquko chorionic quantitative Mukul Foy MD Work Phone: Start: 46-08-8925Rzywstldxjad chorionic quantitative Berto Live LANDSCAPING CREW LEADER - [facility] Work Phone: Start: 51-90-4550Jc retroperitoneal real time w/image completeBesilvestre Ricks LANDSCAPING CREW LEADER - GENERAL CLAIMS AGENT Work Phone: Start: 85-89-2132Rbfsklcg hiv-1&hiv-2 single result Ynes Rodriguez Work Phone: Start: 65-62-7370Ywvdo of thyroid stimulating hormone tshYnes Rodriguez Work Phone: Start: 21-99-5331Plmvk metabolic panel calcium total Ynes Conner Rodriguez Work Phone: Start: 07-88-1734Nhtjy count complete automatedYnes Rodriguez Work Phone: Start: 81-65-7943Dwxpcahuibm observation [Identifier] in Cervix by Cyto stainYnes Rodriguez LANDSCAPING CREW LEADER - GENER[employer] CLAIM[employer] AGENT Work Phone: Plan of Treatment DateCare ActivityDetailAuthorStart: 48-57-2473Gmdcnwrco for malignant neoplasm of cervixPap smearDickenson Community HospitalStart: 63-97-1709Pmvhjbets for malignant neoplasm of cervixPap smearDickenson Community HospitalStart: 08-07-2025 Depression ScreenDepression ScreenDickenson Community HospitalStart: 07-28-2025 End: 48-33-5809Mhkcfok encounter procedureNOMS BCP OBStart: 05-28-2025 End: 89-34-7969Fdlnkta encounter psifjpwwn10/05/2025 2:30 PM EST Routine [facility] [address] [place], [id number] Regina Barton PA [address] [place] [address] [facility] OBGYNStart: 05-28-2025 End: 47-43-1227Exwmdlcssjfn / ancillary services dbjirrmnuy20/05/2025 2:00 PM EST Ancillary Procedure [facility] [address] [place] [id number] [facility] OBGYNStart: 71-29-0094Fxjlr panelLipids [facility] HospitalStart: 05-14-2025 End: 82-37-5976Ytnpxgs encounter dhfhluhbu72/22/2025 2:50 PM EDT Routine [facility] [address] [id number] Mukul Foy DO [address] [place] [address] [facility]i OBGYNStart: 05-14-2025 End: 20-94-2504XP for pregnancyUS OB follow up transabdominal approach Imaging Routine Insulin controlled gestational diabetes mellitus (GDM) during , antepartum ([facility]) Expected: 05/14/2025, Expires: 09/14/2025[facility] Work Phone: comment on above:Expected: 05/14/2025, Expires: 09/14/2025Start: 05-14-2025 End: 22-66-4371Uquwlnk encounter htvxnxyhg16/22/2025 11:40 AM EDT Office Visit [facility] [address] [place] [address] Ynes Rodriguez, LANDSCAPING CREW LEADER - GENERAL CLAIMS AGENT [address] [place] [id number] 6 month f/[facility] CareComment on above:6 month f/uStart: 04-30-2025 End: 03-28-3866Smatyfz encounter qqlmzrnyc11/08/2025 3:00 PM EDT Routine NOMRenzo SANTO [address] [place], [id number] Ceasar Li, ASHWIN [address] [place] [phone] NOMRenzo [place] OBGYNStart: 04-14-2025 End: 35-28-6849Vfafeyp encounter /22/2025 3:20 PM EDT Routine NOMRenzo SANTO [address] [place], [id number] Regina Barton PA [address] [place] [address] [facility]i OBGYNStart: 04-03-2025 End: 34-89-1643Zabgxmy encounter znjkxfrub60/11/2025 3:30 PM EDT Routine NOMRenzo BURNETTEN [address] [place], [id number] Regina Barton PA [address] [place] [address] [facility]i OBGYNStart: 04-03-2025 End: 22-93-1904QQK W Auto Differential panel - BloodCBC and differential Lab Routine Dizziness Anemia, unspecified type Expected: 04/03/2025 (Approximate), Expires: 04/03/2026NONM HealthcareComment on above:Expected: 04/03/2025 (Approximate), Expires: 04/03/2026Start: 04-03-2025 End: 81-99-8311BY biophysical profile w non stress testUS biophysical profile w non stress test Imaging Routine 28 weeks gestation of ([facility]) Third trimester ([facility]) Gestational diabetes mellitus (GDM), antepartum, gestational diabetes method of control unspecified ([facility]) History of miscarriage Expected: 04/03/2025 (Approximate), Expires: 10/01/2025NONM HealthcareComment on above:Expected: 04/03/2025 (Approximate), Expires: 10/01/2025Start: 04-03-2025 End: 87-22-5389PL for pregnancyUS OB follow up transabdominal approach Imaging Routine 28 weeks gestation of ([facility]) Third trimester ([facility]) Gestational diabetes mellitus (GDM), antepartum, gestational diabetes method of control unspecified ([facility]) History of miscarriage Expected: 04/03/2025, Expires: 08/03/2025[facility] Work Phone: comment on above:Expected: 04/03/2025, Expires: 08/03/2025Start: 35-12-2553Ajdswzaab vaccinationNONM HealthcareStart: 02-21-2025 Influenza vaccinationFlu vaccine (Season Ended)[facility] HospitalStart: 02-11-2025 End: 87-40-5842Znsgcoq encounter byeigtxdw96/22/2025 2:10 PM EDT Routine [facility] [address] [facility] [place] [phone] Mukul Foy, [address] [place] [address] NOMS BCP OBStart: 02-11-2025 End: 68-63-4178Luvekbhixjmc / ancillary services rffdidctny80/22/2025 1:00 PM EDT Ancillary Procedure [facility] [place] [address] [place] [phone] NOMS BCP OBStart: 01-15-2025 End: 15-80-6557Hfchqah encounter yptvkrwfb67/25/2025 3:50 PM EDT Routine [facility] [address] [place] [phone] Mukul Foy, [address] [place] [place] [address] NOMS BCP OBStart: 01-15-2025 End: 96-05-7411Moyda fetoprotein, maternalAlpha fetoprotein, maternal Lab Routine Second trimester ([facility]) 17 weeks gestation of ([facility]) Expected: 01/15/2025 (Approximate), Expires: 07/17/2025[facility] Comment on above:Expected: 01/15/2025 (Approximate), Expires: 07/17/2025Start: 01-15-2025 End: 68-88-8465IJ for pregnancyUS OB 14+ weeks anatomy scan Imaging Routine Screening, , for anatomic survey ([facility]) Expected: 01/15/2025, Expires: 04/17/2025NONM HealthcareComment on above:Expected: 01/15/2025, Expires: 04/17/2025Start: 12-18-2024 End: 97-82-7556Krqtsed encounter qybelitmm62/28/2025 3:40 PM EDT Routine [facility] [address] [place] [phone] Mukul Foy, [address] [place] [address] NOMS BCP OBStart: 12-18-2024 End: 28-25-6051QVY panel - Blood by Automated countCBC Lab Routine Diabetes mellitus screening Expected: 12/18/2024 (Approximate), Expires: 12/18/2025[facility] Work Phone: comment on above:Expected: 12/18/2024 (Approximate), Expires: 12/18/2025Start: 12-18-2024 End: 97-36-9893Leeywntkypn of glucose 1 hour after glucose challenge for glucose tolerance testGlucose tolerance, 1 hour Lab Routine Diabetes mellitus screening Expected: 12/18/2024 (Approximate), Expires: 12/18/2025NONM HealthcareComment on above:Expected: 12/18/2024 (Approximate), Expires: 12/18/2025Start: 12-18-2024 End: 50-53-6243LF Pelvis transvaginalUS OB transvaginal Imaging Routine Subchorionic hematoma in first trimester, single or unspecified fetus Expected: 12/18/2024, Expires: 03/20/2025[facility] Work Phone: comment on above:Expected: 12/18/2024, Expires: 03/20/2025Start: 11-14-2024 End: 67-80-3548EFA/RhABO/Rh Lab Routine Missed menses , unspecified gestational age Expected: 11/14/2024 (Approximate), Expires: 11/14/2025NONM HealthcareComment on above:Expected: 11/14/2024 (Approximate), Expires: 11/14/2025Start: 11-14-2024 End: 43-94-4657Dlgvx type and Indirect antibody screen panel - BloodType and screen Lab Routine Missed menses , unspecified gestational age Expected: 11/14/2024 (Approximate), Expires: 11/14/2025NONM HealthcareComment on above:Expected: 11/14/2024 (Approximate), Expires: 11/14/2025Start: 11-14-2024 End: 84-14-1946Wxqrk of abuse panel - Urine by Screen methodRapid drug screen, urine Lab Routine , unspecified gestational age Encounter for supervision of normal first in first trimester Expected: 11/14/2024 (Approximate), Expires: 11/14/2025NOMS HealthcareComment on above:Expected: 11/14/2024 (Approximate), Expires: 11/14/2025Start: 11-06-2024 End: 91-48-4730DX Pelvis transvaginalUS OB transvaginal Imaging Routine Missed menses Expected: 11/06/2024, Expires: 02/05/2025[facility] Work Phone: comment on above:Expected: 11/06/2024, Expires: 02/05/2025Start: 10-16-2024 End: 63-23-9051Mhnrlii encounter qeoxsqejp35/26/2025 1:40 PM EDT Office Visit [facility] [address] [place] [address] Dr [address] [place] [address] Ynes Rodriguez, LANDSCAPING CREW LEADER - GENER[employer]ENT [address] [place] [address] Dr [address] [place] [address] [facility] Primary CareComment on above:WellnessStart: 07-26-1720Ywegavymtv ScreenDepression ScreenBon Secours [facility]vumedicine [facility]ville HospitalStart: 06-04-2024 End: 52-72-4751Hoaxzrl encounter usoukcgdd60/12/2024 11:45 AM EST Office Visit [facility] Care [address] [place] [address] Dr [address] [place] [address] Jose Cruz Raza MD [address] [place] [address] Dr. [address] [place] [address] wt [facility] Primary CareComment on above:wt managementStart: 05-22-2024 End: 28-47-4902Cqdtshi encounter kiwiwauwk45/30/2024 11:00 AM EDT Office Visit [facility] [address] [place] [address] Ynes Rodriguez, LANDSCAPING CREW LEADER - GENER[employer] CLAIMS AGENT [address] [place] [address] LFT + HLD f/u(RS 10/17/23 appt)[facility] Primary CareComment on above:LFT + HLD f/u(RS 10/17/23 appt)Start: 32-75-9926GVGOH-19 Vaccine ( season)COVID-19 Vaccine ( season)[facility] HospitalStart: 09-93-3063HXRHK-19 Vaccine ( season)COVID-19 Vaccine ( season)[facility] HospitalStart: 97-20-1748Xnzrblmim vaccinationInfluenza Vaccine (#1)[facility]Start: 88-83-5370Pyljnmpih vaccinationFlu vaccine (#1)[facility] HospitalStart: 28-10-7375Rogqinqsa for malignant neoplasm of cervixOhiohealth [facility]ide Methodist Hospital HealthStart: 07-01-6590Logbuuplow ScreenDepression ScreenBON MERCY HEALTH ST[facility] HOSPITALStart: 07-11-2022 End: 16-93-4795Ryzammo encounter zbgbvcnod13/19/2022 Office Visit Primary Care Ynes Rodriguez, LANDSCAPING CREW LEADER - [employer] CLAIM[employer] AGENT [address] [place] [address] [facility] Start: 05-19-2022 End: 99-40-4351Mhvhito encounter lqyxzsmsj90/27/2022 Office Visit Obstetrics and Gynecology Berto Live, JOSE J - CNM [address] [place] [address] [facility] Part of [facility] Hospitaltart: 03-18-2022 End: 56-92-6157Hefoxlf encounter tcnakbxsl83/ Office Visit Family Medicine Ynes Rodriguez, LANDSCAPING CREW LEADER - GENER[employer] CLAIM[employer] AGENT [address] [place] [address] [facility]art: 84-31-5980Sphfhimjt C screeningHepatitis C screenOhiohealth Riverside Methodist Hospital HealthComment on above:Postponed from 1998 (Patient Refused)Start: 19-89-9246Bmrrcnqna vaccinationFlu vaccine (#1)[facility] Centerart: 99-07-3219Ljvewpabz for Chlamydia trachomatisWvumedicine Barnesville HospitalStart: 09-24-2021 Influenza vaccinationFlu vaccine (Season Ended)[facility] Work Phone: comment on above:Postponed from 03/24/2021 (Patient Refused)Start: 29-04-7827Wsmitlqxvz MonitoringDepression [facility] Start: 93-35-7878HOTYM-19 Vaccine (3 - Booster for Pfizer series)COVID-19 Vaccine (3 - Booster for Pfizer series)[facility] Centerart: 53-72-2965JWwD/Tdap/Td vaccine (7 - Td or Tdap)DTaP/Tdap/Td vaccine (7 - Td or Tdap)[facility]: 47-51-8927MWwF/Tdap/Td vaccine (7 - Td)DTaP/Tdap/Td vaccine (7 - Td)[place]: 26-16-7698Sfhjqzgup vaccinationFlu vaccine (#1)[facility] Start: 77-18-6153Htiisqipb for Chlamydia trachomatisChlamydia screenPaulding County Hospital: 27-96-2803TOGFA-19 Vaccine (3 - Booster for Pfizer series) COVID-19 Vaccine (3 - Booster for Pfizer series)[facility]: 02-09-2021 End: 71-40-2012Fwyclac encounter tbssacbfk61/20/2021 Office Visit Family Medicine Ynes Rodriguez, [employer] [address] [place] [address] [phone] [facility]: 11-30-2020 End: 00-74-6328Ikjvtmx encounter nkyhfmowc10/10/2021 Office Visit Urology Chris Moe MD [address], [address] [place], [id number] [phone] [facility]2020 End: 64-10-2789Vtgqcifensab74/05/2020 Telemedicine Family Medicine Ynes Rodriguez, LANDSCAPING CREW LEADER - GENERAL CLAIMS AGENT [address] [facility] [place] [address] [facility] [place] [address] [phone] [facility] FAMILY [facility] Start: 92-83-5407Alzquxqky vaccinationFlu vaccine (#1)[facility]: 25-76-9476Arbuhxliu for Chlamydia trachomatisChlamydia [facility]: 22-08-4453Oqjqyciiq for malignant neoplasm of cervixCervical cancer screenPaulding County Hospital: 51-40-3102Ycycnkyvq C screeningHepatitis C screenB[facility]OURS [facility]: 99-90-1354ECMBO-19 Vaccine (1)COVID-19 Vaccine (1)[facility] Phone: start: 64-80-6991CKU screeningHIV [facility]: 46-55-9093Hofeamqtk C screeningHepatitis C [facility] Phone: bacteria identified in Urine by CultureUrine culture Microbiology Routine Missed menses Ordered: 11/14/2024NONM HealthcareComment on above:Ordered: 5Bacteria identified in Urine [...] annual routine gynecological examination 03/03/2020 5:08 PM [facility], [place]CB W Auto Differential panel - BloodCBC [...] Work Phone: comment on above:Ordered: 07/15/2024 End: 88-90-2488Mmovurgobmxnb procedure, preparation of smear, genital sourcePAP SMEAR Lab Routine Screening for cervical cancer 1 Occurrences [facility] 03/03/2020 until [facility]2020[facility] MSComment on above:1 Occurrences starting 03/03/2020 until 03/03/2020Hemoglobin [...] and Cytology Routine Vaginal discharge Ordered: 01/15/2025 [facility] Work Phone: comment on above:Ordered: 01/15/2025US Pelvis transvaginalUS OB transvaginal Imaging Routine Missed menses 11/14/2024 2:38 PM [facility] End: 00-00-0548Ky uterus 14 wk transabdl 07/24 [facility] Work Phone: Comment on above:1 Occurrences starting 12/20/2024 until 12/20/2024 Immunizations Immunization DateImmunizationNotesCare ZgbdrdpmSwbtixdy02-70-8359WKAFQ-59, Pfizer Purple top, DILUTE for use, 12+ yrs, 30mcg/0.3mL doseHannah Rodriguez LANDSCAPING CREW LEADER - GENERAL CLAIMS AGENT Work Phone: [facility] Work Phone: [phone]-02, Pfizer Purple top, DILUTE for use, 12+ yrs, 30mcg/0.3mL doseHannah Rodriguez LANDSCAPING CREW LEADER - GENERAL CLAIMS AGENT Work Phone: [facility] HospitalWihqlo30-45-1627mtzbv papilloma virus vaccine, quadrivalentChampionna [facility], VN83-82-2647hjwek papilloma virus vaccine, quadrivalentOhioHealth Grant Medical Center, BX97-86-9222pkkfw papilloma virus vaccine, quadrivalentOhioHealth Grant Medical Center, [place] 41-71-0258cwscixqqgzcrl polysaccharide (groups A, C, Y and W-135) diphtheria toxoid conjugate vaccine (MCV4P)[facility], XV00-35-4109 meningococcal ACWY vaccine, unspecified formulationOhioHealth Grant Medical Center, LP55-42-1648Foedcmqha A Ped/Adol (Vaqta)[facility], [place] 77-81-6394hklvsjkdb A vaccine, pediatric/adolescent dosage, 2 dose schedule Ynes Fede LANDSCAPING CREW LEADER Artoo GENERAL CLAIMS AGENT Work Phone: [facility] Work Phone: [phone] toxoid, reduced diphtheria toxoid, and acellular pertussis vaccine, adsorbedOhioHealth [facility] Medical Center, [place] 20-09-9076Doiqtddnc A Ped/Adol (Vaqta)[facility], [place] 70-92-6388yrsjjfulm A vaccine, pediatric/adolescent dosage, 2 dose schedule Ynes Fede LANDSCAPING CREW LEADER Artoo [facility] Work Phone: bon [facility] Work Phone: [phone]qgscru virus vaccineOhioHealth Grant Medical Center, QY62-31-0619bjpxnidauefbf polysaccharide (groups A, C, Y and W-135) diphtheria toxoid conjugate vaccine (MCV4P)[facility], [place] 24-89-6838tokwtpggce, tetanus toxoids and acellular pertussis vaccineOhioHealth Grant Medical Center, TP54-72-2660jdqbxey, mumps and rubella virus vaccine [facility], AY25-47-4603yvkzdruqiv vaccine, inactivated [facility], XI13-62-6305uajcukuwzm, tetanus toxoids and acellular pertussis vaccineOhioHealth [facility] Medical [facility], HW25-74-0988 haemophilus influenzae type b vaccine, PRP-T conjugateOhioHealth [facility] Medical [facility], VK47-16-8605qgkhklaoiu vaccine, inactivatedOhioHealth [facility], WQ18-61-3969razgbed, mumps and rubella virus vaccineMartin Memorial Hospital, CY36-91-2528ehbhfltat virus vaccineOhioHealth [facility] Medical Center, JS67-78-6166srmwdvyas B vaccine, pediatric or pediatric/adolescent dosageOhioHealth [facility], CB22-52-4125cewtiuzcbi, tetanus toxoids and acellular pertussis vaccineOhioHealth [facility], ZU08-86-0189 haemophilus influenzae type b vaccine, PRP-T conjugateOhioHealth [facility], EK88-27-5780nhazhfbpht, tetanus toxoids and acellular pertussis vaccineOhioHealth [facility] Medical Center, IL00-61-6181xllevsnwoum influenzae type b vaccine, PRP-T conjugateOhioHealth [facility], VC25-58-2351 poliovirus vaccine, inactivatedOhioHealth [facility], RA51-34-2460 haemophilus influenzae type b vaccine, PRP-T conjugateOhioHealth [facility], JJ73-68-8968updhfquhhc vaccine, inactivatedOhioHealth [facility], DI45-87-1763xujjbucyzx, tetanus toxoids and acellular pertussis vaccineOhioHealth Mansfield Hospital03-18-1999hepatitis B vaccine, pediatric or pediatric/adolescent dosageOhioHealth [facility] Medical [facility], HU47-56-1082 hepatitis B vaccine, pediatric or pediatric/adolescent dosageMartin Memorial Hospital, [place] Payers DatePayer CategoryPayerPolicy [id number] [employer]TY [employer] [facility] [id number] 2022-Present [address] [place] [address] [id number] Health InsuranceMEDICAL MUTUAL Member Subscriber Plan / Payer (Effective 2022-Present) Name: Vinny Downey Relation to Subscriber: Spouse Name: Abhishek Downey Date of : 1996 Address: [address] [place] [id number] Payer ID: Not on file Type: Not on file Address: [address] [id number] [id number] 2.0.1.885594.3.57[id number] 2.840.1.683193.3.57[id number] 2.0.1.964597.3.57[id number] 2.840.1.659273.3.57[id number] 2.840.1.835175.3.57[id number] 2.840.1.100768.3.57[id number] 2.840.1.370341.3.57[id number] 2.840.1.825855.3.57[id number] 2.840.1.191729.3.57[id number] 2.840.1.416652.3.57[id number] 2.16840.1.632425.3.57[id number] 2.16.840.1.943525.3.57[id number] 2.16.840.1.703700.3.57[id number] 2.16.840.1.511586.3.57[id number] 2.16.840.1.511765.3.57[id number] 2.16.840.1.453878.3.579.[id number] 2.16.840.1.332089.3.579.2.71467-02-0294Ktulpef4333902 2.16840.1.977936.3.57[id number] 2.16.840.1.598209.3.579.2.63889-56-3850Tjibbyi43643906 2..840.1.071269.3.57[id number] 2.16.840.1.690730.3.57[id number] 2.840.1.217557.3.57[id number] 2.16.840.1.998262.3.579.2.37708-73-4776Isbaszy74341106 2.16840.1.962183.3.579.2.801314-86-8814Cesbkvs68994376 2.16.840.1.771172.3.579.2.799808-75-9380Mfgilec73428642 2.16.840.1.216470.3.579.2.396273-43-7343Laeixba83694920 2.16.840.1.943554.3.579.2.543679-43-7300Eogbdia27117399 2.16.840.1.657546.3.579.2.6[id number] 2.16.840.1.826390.3.579.2.014759-45-4535Xqngina18849914 2.16.840.1.146845.3.57[id number] 2.16.840.1.232500.3.57[id number] 2.16.840.1.065199.3.579.2.879373-68-6614Ahniddx8218925 2..840.1.377451.3.579.2.987165-77-9330Rhstbof3879036 2.16.840.1.698213.3.57[id number] 2.16.840.1.898718.3.579.2.697798-86-3196Gwwuydw6148622 2..840.1.134185.3.579.2.281444-36-5080Cnci-w[id number] 1.2.840.636885.1.13.239.2.7.3.547341.01416-41-4198Xyjqrzz04610364834828-57-7967 [id number] 2.840.1.529115.3.579.2.593 Social History DateTypeDetailFaciltogus va medical centerStart: 03-03-2020 End: 75-28-7495Bdyfncw smoking status [facility]: 03-03-2020 End: 82-00-2434Jhbsmdi use and exposureNever usedPaulding County Hospital: 03-03-2020 End: 33-82-0648Rmwlrlr intakeCurrent drinker of alcohol (finding)[facility]: 35-84-3501Dtbxguw CommentsocialPaulding County Hospital: 48-52-9140Zhm Assigned At BirthNot on [facility], [facility]: 05-01-2020 End: 61-51-0658Kenhxsg SDOH Aidlbpnzy3BhxjfPaulding County Hospital: 05-01-2020 End: 93-23-2222Wgtefyb SDOH Food Iwhcs6OxcybMemorial Hospital, [facility]: 05-01-2020 History SDOH Transport Afy[address]Dfb[address] [place], [place] [address]Exposure to SARS-CoV-2 (event)Not sureTriHealth Bethes[facility]: 05-01-2024 End: 70-27-5827Cnbwkrbbk beverage intakeEx-drinker (finding)[facility] HospitalStart: 05-01-2024 End: 46-38-9650Ykvgduf of Social functionBon Joint Township District Memorial Hospitalart: 05-01-2024 End: 95-50-3753Brrprks use panelDickenson Community HospitalStart: 05-04-6502Dqm hard is it for you to pay for the very basics like food, housing, medical care, and heatingNot hard at allDickenson Community Hospital(I/We) worried whether (my/our) food would run out before (I/we) got money to buy more.Never trueBon Protestant HospitalStart: 87-09-4377Blv assigned at birthFemaleBon Protestant HospitalStart: 20-59-1685Arfwuf identityIdentifies as female gender (finding)[facility] HospitalStart: 07-05-2023 End: 53-99-9958Utsjujmwp beverage intakeLifetime non-drinker (finding)[facility] HealthcareStart: 61-24-4333VogjrxbbwQSRA HealthcareHas the electric, gas, oil, or water company threatened to shut off services in your home in past 12MoNoBon Protestant HospitalStart: 22-33-4361LglQqfvyy (finding)[facility] Medical Equipment Procedure CodeEquipment CodeEquipment Original TextEquipment IdentifierDatesUse as [id number]: 01-15-2025 End: 66-57-1523Iuxaib 1 each under the skin [id number]: 04-07-2025 End: 07-16-2025 Goals DatePatient GoalDesired Activity/StatePersonal health goal Clinical Notes 03-20-2023 to 05-14-2025 Note Date & GxilFeqqRnsxgpie26-86-7559 History of Present illness Narrative* Criselda Aguirre, EDUCATION MANAGER - 05/14/2025 2:50 PM EDT Reason for [...] UTI 11/30/2020 23 weeks gestation of ([facility]) 02/26/2025 Elevated blood sugar level 02/26/2025 Resolved Ambulatory Problems Diagnosis Date Noted Missed period 01/13/2023 Past Medical History: Diagnosis Date GDM (gestational diabetes mellitus) ([facility]) HISTORY PAST MEDICAL HISTORY SOCIAL HISTORY Past Medical History: Diagnosis Date GDM (gestational diabetes mellitus) ([facility]) Social History Tobacco Use Smoking status: Never [...] nursing note reviewed. Exam conducted with a a r collections rep present. Vitals: Estimated body mass index is 37.47 kg/m as calculated from the following: Height as of 01/30/23: 5' 6 . Weight as of this encounter: 232 lb 1.9 oz. BP: 110/70 Patient's last menstrual period was 09/16/2024. Assessment/Plan ICD-10-CM 1. Third trimester ([facility]) Z34.93 2. 34 weeks gestation of ([facility]) Z3A.34 POCT urinalysis dipstick manually resulted Return [...] of: Mukul Foy DO documented in this encounterMadison Medical CenterRgzrmophah18-86-5722 History of Present illness Narrative* Ceasar Li [...] UTI 11/30/2020 23 weeks gestation of ([facility]) 02/26/2025 Elevated blood sugar level 02/26/2025 Resolved Ambulatory Problems Diagnosis Date Noted Missed period 01/13/2023 Past Medical History: Diagnosis Date GDM (gestational diabetes mellitus) ([facility]) HISTORY PAST MEDICAL HISTORY SOCIAL HISTORY Past Medical History: Diagnosis Date GDM (gestational diabetes mellitus) ([facility]) Social History Tobacco Use Smoking status: Never [...] nursing note reviewed. Exam conducted with a a r collections rep present. Vitals: Estimated body mass index is 36.7 kg/m as calculated from the following: Height as of 01/30/23: 5' 6 . Weight as of this encounter: 227 lb 6.4 oz. BP: 110/70 Patient's last menstrual period was 09/16/2024. ASSESSMENT & PLAN ICD-10-CM 1. Third trimester ([facility]) Z34.93 2. 32 weeks gestation of ([facility]) Z3A.32 POCT urinalysis dipstick manually resulted Return [...] of: Ceasar Li NP documented in this encounterMadison Medical CenterIuvgkmwlbk31-17-7637 History of Present illness Narrative* JOSEPH Bowie [...] UTI 11/30/2020 23 weeks gestation of ([facility]) 02/26/2025 Elevated blood sugar level 02/26/2025 Resolved Ambulatory Problems Diagnosis Date Noted Missed period 01/13/2023 Past Medical History: Diagnosis Date GDM (gestational diabetes mellitus) ([facility]) HISTORY PAST MEDICAL HISTORY SOCIAL HISTORY Past Medical History: Diagnosis Date GDM (gestational diabetes mellitus) ([facility]) Social History Tobacco Use Smoking status: Never [...] & PLAN ICD-10-CM 1. Third trimester ([facility]) Z34.93 POCT urinalysis dipstick manually resulted 2. 30 weeks gestation of ([facility]) Z3A.30 Return OB: Patient presents today for [...] behalf of: JOSEPH Bowie documented in this encounterMadison Medical CenterDhxkogzvqs15-68-3763 History of Present illness Narrative* JOSEPH Bowie [...] UTI 11/30/2020 23 weeks gestation of ([facility]) 02/26/2025 Elevated blood sugar level 02/26/2025 Resolved Ambulatory Problems Diagnosis Date Noted Missed period 01/13/2023 Past Medical History: Diagnosis Date GDM (gestational diabetes mellitus) ([facility]) HISTORY PAST MEDICAL HISTORY SOCIAL HISTORY Past Medical History: Diagnosis Date GDM (gestational diabetes mellitus) ([facility]) Social History Tobacco Use Smoking status: Never [...] ICD-10-CM 1. 28 weeks gestation of ([facility]) Z3A.28 POCT urinalysis dipstick manually resulted US OB follow up transabdominal approach US biophysical profile w non stress test 2. Third trimester ([facility]) Z34.93 POCT urinalysis dipstick manually resulted US OB follow up transabdominal approach US biophysical profile w non stress test 3. Dizziness R42 CBC and differential CBC and differential 4. Gestational diabetes mellitus (GDM), antepartum, gestational diabetes method of control unspecified ([facility]) O24.419 US OB follow up transabdominal approach [...] behalf of: JOSEPH Bowie documented in this encounterMadison Medical CenterJiizunqfld26-72-2620 History of Present illness Narrative* Mukul Foy, [...] UTI 11/30/2020 23 weeks gestation of ([facility]) 02/26/2025 Elevated blood sugar level 02/26/2025 Resolved Ambulatory Problems Diagnosis Date Noted Missed period 01/13/2023 Past Medical History: Diagnosis Date GDM (gestational diabetes mellitus) ([facility]) No family history on file. Social History [...] nursing note reviewed. Exam conducted with a a r collections rep present. Vitals: Estimated body mass index is 36.12 kg/m as calculated from the following: Height as of 01/30/23: 5' 6 . Weight as of this encounter: 223 lb 12.8 oz. BP: 100/70 Patient's last menstrual period was 09/16/2024. Assessment/Plan Encounter Diagnosis: ICD-10-CM 1. 25 weeks gestation of ([facility]) Z3A.25 POCT urinalysis dipstick manually resulted 2. Second trimester ([facility]) Z34.92 POCT urinalysis dipstick manually resulted 3. [...] of: Mukul Foy DO documented in this encounterMadison Medical CenterRuhqmsvngn58-65-6274 History of Present illness Narrative* Ceasar Li [...] UTI 11/30/2020 23 weeks gestation of ([facility]) 02/26/2025 Elevated blood sugar level 02/26/2025 Resolved Ambulatory Problems Diagnosis Date Noted Missed period 01/13/2023 Past Medical History: Diagnosis Date GDM (gestational diabetes mellitus) ([facility]) HISTORY PAST MEDICAL HISTORY SOCIAL HISTORY Past Medical History: Diagnosis Date GDM (gestational diabetes mellitus) ([facility]) Social History Tobacco Use Smoking status: Never [...] nursing note reviewed. Exam conducted with a a r collections rep present. Vitals: Estimated body mass index is 35.96 kg/m as calculated from the following: Height as of 01/30/23: 5' 6 . Weight as of this encounter: 222 lb 12.8 oz. BP: 110/70 Patient's last menstrual period was 09/16/2024. ASSESSMENT & PLAN ICD-10-CM 1. 23 weeks gestation of ([facility]) Z3A.23 POCT urinalysis dipstick manually resulted [...] of: Mukul Foy DO documented in this encounterMadison Medical CenterSmzlgvyqdm53-63-4102 History of Present illness Narrative* JOSEPH Bowie [...] Diagnosis Date GDM (gestational diabetes mellitus) ([facility]) HISTORY PAST MEDICAL HISTORY SOCIAL HISTORY Past Medical History: Diagnosis Date GDM (gestational diabetes mellitus) ([facility]) Social History Tobacco Use Smoking status: Never [...] & PLAN ICD-10-CM 1. Second trimester ([facility]) Z34.92 metFORMIN XR (Glucophage-XR) 500 MG 24 hr tablet POCT urinalysis dipstick manually resulted 2. 20 weeks gestation of ([facility]) Z3A.20 metFORMIN XR (Glucophage-XR) 500 MG 24 [...] of: Mukul Foy DO documented in this encounterMadison Medical CenterUulryzczqo64-07-1203 History of Present illness Narrative* Criselda Aguirre [...] Diagnosis Date GDM (gestational diabetes mellitus) ([facility]) HISTORY PAST MEDICAL HISTORY SOCIAL HISTORY Past Medical History: Diagnosis Date GDM (gestational diabetes mellitus) ([facility]) Social History Tobacco Use Smoking status: Never [...] nursing note reviewed. Exam conducted with a a r collections rep present. Vitals: Estimated body mass index is 34.19 kg/m as calculated from the following: Height as of 01/30/23: 5' 6 . Weight as of this encounter: 211 lb 12.8 oz. BP: 118/72 Patient's last menstrual period was 09/16/2024. ASSESSMENT & PLAN ICD-10-CM 1. Second trimester ([facility]) Z34.92 Alpha fetoprotein, maternal Alpha fetoprotein, maternal 2. 17 weeks gestation of ([facility]) Z3A.17 Alpha fetoprotein, maternal Alpha fetoprotein, maternal 3. Vaginal discharge N89.8 SURESWAB(R) ADVANCED VAGINITIS PLUS, TMA 4. STD exposure Z20.2 CHLAMYDIA TRACHOMATIS (GENITO/STI) Neisseria gonorrhea DNA probe, direct 5. Screening, , for anatomic survey ([facility]) Z36.89 US OB 14+ weeks anatomy scan 6. Gastroesophageal reflux in ([facility]) O99.619 omeprazole (PriLOSEC) [address] capsule K21.9 7. Gestational diabetes mellitus (GDM), antepartum, gestational diabetes method of control unspecified ([facility]) O24.419 glucose blood test strip Return OB/Annual [...] behalf of: alesha bowie documented in this encounterMadison Medical CenterLyqshmmybp26-48-3297 History of Present illness Narrative* JOSEPH Bowie [...] Documented by JOSEPH Bowie documented in this encounterMadison Medical CenterRvbqoqghjj53-68-4484 History of Present illness Narrative* Elizabeth Ware [...] Nurse Note: Patient uncertain of doing the [place] screening. Pt was advised both labs and [...] or undercooked meat, and stay away from [facility]. Patient has also been advised to [...] by: Elizabeth Ware MA documented in this encounterMadison Medical CenterKiyvoeneau87-34-8465 History of Present illness Narrative* Elizabeth Ware [...] nursing note reviewed. Exam conducted with a a r collections rep present. Vitals: Estimated body mass index is [...] of: Mukul Foy DO documented in this encounterMadison Medical CenterVcbrbokmyr68-42-7890 NoteHNO ID: [id number] Author: LANG CARREON APRN.GENERAL CLAIMS AGENT Service: ? Author Type: Nurse Practitioner Type: Progress Notes Filed: 08/06/2023 10:44 Note Text: Telemedicine Visit - Distance Health Virtual Visit Note I have communicated my name and active licensure. The patient's identity and physical location were verified at the time of this visit. Either the patient or their legal hr representative has been informed of the risks and benefits of -- and alternatives to -- treatment through a remote evaluation and consents to proceed with the evaluation remotely. Patient seen on virtual platforms, [employer]. Location of patient: [place] History of Presenting Illness: Vinny Downey 22 [...] - Sleep with head elevated due to vfwg-sovon-ftnr increases cough - Continue Flonase - Flonase: [...] care - All questions answered Lang Carreon APRN.[facility]12-19-2023 NoteUT Electrophysiology Consult Note Reason [...] recent labs Rajendra Sheffield MD Cardiac Electrophysiology [facility] HospitaloUnUniversity [facility]als [facility]12-19-2023 NotePatient here for follow up event monitor. Echo was not performed that was ordered at last apt in Feb 2023 by Israel Champion CNP. Does not notice palpitations as often. Denies chest pain, SOB, and lightheadedness. Review of Systems Cardiovascular: Positive for palpitations (less often). All other systems reviewed and are negative.[facility] 03-30-2023 Note-developed anemia s/p -hgb 10.8 per recent labsUnUniversity Hospitals Cleveland Medical Center09-07-2023 Note- could be related to being , anemia -monitor and echo to rule out cardiac concernUnUniversity Hospitals Cleveland Medical Center 03-30-2023 Note- takes sertraline 50 mg dailyUnUniversity Hospitals [facility] Center 03-30-2023 Note- 30-day event monitor - we will hold off on starting medication until follow-upUnUniversity Hospitals [facility] Center08-28-2023 NoteNew patient here to establish care. Ref from Dr. Foy for bradycardia. She is 8 weeks . Had ECG last week. Symptoms started after baby was born. She feels palpitations. Did lose a lot of blood with , requiring transfusion. Denies chest pain and SOB. Review of Systems Cardiovascular: Positive for palpitations. Neurological: Positive for headaches. All other systems reviewed and are negative.[facility] 03-20-2023 NoteUT Electrophysiology Consult Note [...] images are attached to (more content not included)...[facility] CenterEvaluation [facility]* Diagnosis Frequent UTI Urinary tract infection, site not specified documented in this encounter [employer] Phone: evaluation note* Diagnosis Amenorrhea Absence of menstruation documented in this encounter [employer] Phone: evaluation note* Diagnosis Elevated liver enzymes Nonspecific elevation of levels of transaminase or lactic acid dehydrogenase (LDH) Mixed hyperlipidemia documented in this encounter [facility] ePrepalusaint francis healthcare note* Diagnosis Well woman exam with [...] or unspecified fetus documented in this encounter [facility] ePrepalusaint francis healthcare note* Diagnosis Second trimester ([facility]) state, incidental 17 weeks gestation of ([facility]) Vaginal discharge Leukorrhea, not specified as infective STD exposure Screening, , for anatomic survey ([facility]) Encounter for anatomic survey Gastroesophageal reflux in ([facility]) Gestational diabetes mellitus (GDM), antepartum, gestational diabetes method of control unspecified([facility]) documented in this encounter [facility] HealthcareEvaluation note* Diagnosis Second trimester ([facility]) state, incidental 20 weeks gestation of ([facility] [facility]) documented in [facility] encounter [facility]* Diagnosis 23 weeks gestation of ([facility]) Elevated blood sugar level Other abnormal glucose Gastroesophageal reflux disease without esophagitis Esophageal reflux documented in this encounter [facility]* Diagnosis 25 weeks gestation of ([facility]) Second trimester ([facility]) state, incidental Gastroesophageal reflux disease without esophagitis Esophageal reflux documented in this encounter [facility]* Diagnosis 28 weeks gestation of ([facility]) Third trimester ([facility]) state, incidental Dizziness Dizziness and giddiness Gestational diabetes mellitus (GDM), antepartum, gestational diabetes method of control unspecified([facility]) History of miscarriage Personal history [...] TRANSVAGINAL Mukul Foy MD [address] [place] [address] Phone: tel: Referral IDStatusReasonStart DateExpiration DateVisits RequestedVisits [id number]/ [facility] Assessments Diagnosis Screening for cervical cancer Screening for malignant neoplasm of the cervix Encounter for annual routine gynecological examination Diagnosis Encounter for screening for HIV Other fatigue Wellness examination Advance Directives No Advanced Directives Records FoundDocuments on File TypeDate RecordedPatient RepresentativeExplanationAdvance Directives and Living WillPower of AttorneyTypeDate RecordedPatient RepresentativeExplanationACP- Advance DirectiveACP-Power of AttorneyTypeDate RecordedPatient Cleaning Team Member ExplanationACP-Advance DirectiveACP-Power of Database Security Administrator Summary Purpose Family History No Family History Records FoundNo Family History Records FoundNo Family History Records FoundNo Family History Records FoundNo Family History Records FoundNo Family History Records FoundNo Family History Records Found Reason for Referral StatusReasonSpecialtyDiagnoses / ProceduresReferred By ContactReferred To ContactClosedRadiology Diagnoses Frequent UTI Procedures US RENAL COMPLETE Lorena Ricks, [employer]W LEADER - GENERAL CLAIMS AGENT [address] [place] [address] Additional Source Comments INFORMATION SOURCE (unrecogn ized section and content) DATE CREATED AUTHOR 10/14/2020 [facility] DATE CREATED AUTHOR AUTHOR'S ORGANIZ ATION 09/26/2021 [facility] DATE CREATED AUTHOR AUTHOR'S ORGANIZ ATION 12/30/2022 [facility] DATE CREATED AUTHOR AUTHOR'S ORGANIZ ATION 08/03/2023 [facility] DATE CREATED AUTHOR AUTHOR'S ORGANIZ ATION 08/07/2023 [facility] DATE CREATED AUTHOR AUTHOR'S ORGANIZ ATION 01/09/2025 [facility] DATE CREATED AUTHOR AUTHOR'S ORGANIZ ATION 05/16/2025 [facility] EPIC Reason for Visit (unrecogniz ed section and content) StatusReasonSpecialtyDiagnoses / ProceduresReferred By ContactReferred To ContactClosedRadiology Diagnoses Frequent UTI Procedures US RENAL COMPLETE Lorena Ricks, [employer]W LEADER - GENERAL CLAIMS AGENT [address] [place] [address] ReasonCommentsGynecologic ExamReasonCommentsAmenorrheaReasonCommentsRoutine VisitReasonCommentsRoutine VisitSTI Screening Care Teams (unrecognized sec tion and content) Team MemberRelationshipSpecialtyStart DateEnd Date Ynes Rodriguez, [employer] LEADER - GENERAL CLAIMS AGENT [address] [place] [address] PCP - GeneralFamily Nurse Xpaenrxuqrws41/12/20Team MemberRelationshipSpecialty Start DateEnd Date Ynes Rodriguez, [employer]W LEADER - GENERAL CLAIMS AGENT [address] [place] [address] PCP - GeneralFamily Nurse Miqrpuswtrdp57/12/20Team MemberRelationshipSpecialty Start DateEnd Date Ynes Rodriguez, [employer]SC[employer]W LEADER - GENERAL CLAIMS AGENT [address] [place] [address] PCP - GeneralFamily Nurse Practitioner08/02/22Team MemberRelationshipSpecialty Start DateEnd Date Ynes Rodriguez, JOSE J - GENERAL CLAIMS AGENT [address] [place] [address] PCP - GeneralFamily Nurse Practitioner08/02/22Team MemberRelationshipSpecialty Start DateEnd Date Ynes Rodriguez, JOSE J - GENERAL CLAIMS AGENT [address] [place] [address] PCP - GeneralFamily Nurse Practitioner08/02/22 FOR RECORDS [...] BE BASED ON THE PRIMARY CLINICAL RECORDS. [facility]. provides no warranty or guarantee of the accuracy or completeness of information in this document.
[2025-05-21 16:56] VITALS: BP 128/66; PULSE 76
== END 2025-05-21 17:23 | disposition home or self-care (01) ==
LOC: US 16:06 → FBC 16:08
PROVIDERS: PCP Nurse Practitioner Women's Health; Visit Provider Obstetrics & Gynecology
DX: O24.419 Gestational diabetes mellitus in pregnancy, unspecified control (principal); Z3A.35 35 weeks gestation of pregnancy
CPT/HCPCS: 76818

== ENCOUNTER 2025-05-24 09:11 | Outpatient (OUT) | payer OTHER, SELFPAY ==
--- OUTSIDE RECORDS SUMMARY | 2020-06-22 11:27 | XMS_ITS | Continuity of Care Document ---
Author Organization [employer] [facility] Address [address] [place] [address] Phone Care Team Providers Care Guidance And Control System Engineer Name Role Phone Valerie Ernandez Unavailable Chen [...] Diagnoses Date Provider Providers Copied on Encounter [employer], [address], [address], [place] tel:[phone] [facility] No Information Livier Padilla. [address], [place], [address], [place]. tel:[phone] OFFICE/OUTPAT IENT VISIT, [facility], [address] [place] [address] [address], [place], [place], [address], tel:[phone] [facility] COVID EXPOSURE AND SYMPTOMS (chief complaint) Body achesFatigue, unspecified typeExposure to COVID-19 virus Omarkrista LUX-MUNA Padilla. [address] [place], [place], [address], [place]. tel:[phone] Referring Provider: Valerie Maier APRNMUNA, [address] [place], [address] . tel:[phone] OFFICE/OUTPAT IENT VISIT, [facility], [address] [place] [address] [address], [place], [place], [address], tel:[phone] [facility] UTI (chief complaint) Dysuria Titus Albarran. [address] [place], [place], [address], [place]. tel:[phone] Referring Provider: Avis Qureshi NP, [address] [place], [address] . tel:[phone] Family History Family Member Type Diagnosis Age At Onset No Information Payers Payer name Insurance type Covered constitution party ID Bill diggs(s) Thad TODD [id number] Social History Type Description Quantity Date Captured Comments Sex Female Smoking Status No Information Chief Complaint And Reason For Visit No Information Reason For Referral Reason For Referral No Information Plan Of Treatment Date Type Action Status Future Order: Lab Order COVID 19 , RT-PCR ([id number]), Ordered on: Ordered History Of Present Illness Encounter Date Complaint History Of Prese nt Illness COVID EXPOSURE AND S YMPTOMS (comments) 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 PATIENT STATES THAT 2 PEOPLE IN HER [...] FOR COUGH WELL IF YOU ARE A [facility] STUDENT LIVING ON CAMPUS PLEASE CALL YOUR [facility] COVID HOTLINE NUMBER IS [phone] RED FLAGS THAT WOULD WARRANT ER ASSESSMENT [...] COVID CASES: COVID TESTS ARE RUN AT [facility] AND ARE TYPICALLY DONE IN 24-48 HOURS. PLEASE SIGN UP FOR THE PATIENT PORTAL THOUGH [facility] YOUR RESULTS WILL SHOW UP THERE. IF YOU DO NOT GET AN EMAIL TO SET UP YOUR PATIENT PORTAL PLEASE CALL [phone] Monday RIDAY 8:00AM 4:30PM HOW TO DISCONTINUE [...] SOMEHOW GOT RESPIRATORY DROPLETS ON YOU HTTPS://[email or web address] OV/XX-KEC-UTN-SICK/QUARANTINE.HTML (UPDATED OF 05.19.2020) CONTACT YOUR LOCAL HEALTH [...] SYMPTOMS THAT ARE SEVERE OR CONCERNING. COVID-19 HOTLINE:9-465-5-ASK-ODH ( ) HOW TO HELP STOP THE [...] SECONDS. RESOURCES FOR MORE INFORMATION: [email or web address] OV/INDEX.HTML HTTPS://[email or web address] /GOV/COVID-19/HOME HTTPS://[email or web address]/CORONAVIRUS/ OV/AS-QYD-JGW-SICK/JABPR-UTXE-ZCVQ.HTML Related to Exposure to COVID-19 virus Increase fluids and rest.May continue over the counter urinary pain relief. Take antibiotic completely. Return to [facility] if not improving. Related to Dysuria Assessments Type Assessment Date No Information Patient Care Teams Name Effective Dates (start - stop) Status Members No Information
--- OUTSIDE RECORDS SUMMARY | 2025-04-30 15:00 | XMS_ITS | Encounter Summary ---
Author Organization [facility] Address [address] [place] [address] Care Team Providers Care Combination Technician Name Role Phone Unavailable Primary Care Provider Unavailabl e Reason for Visit * ReasonCommentsRoutine Visit Encounter Details DateTypeDepartmentCare Team (Latest Contact Info)Prcypvxpznv09/08/2025 3:00 PM EDTRoutine [facility] [address] [address] Tiffany Li, ASHWIN [address] [facility] [address] [place] [address] Third trimester ([facility]); 32 weeks gestation of ([facility]) Social History Tobacco UseTypesPacks/DayYears UsedDateSmoking Tobacco: NeverSmokeless Tobacco: NeverAlcohol UseStandard Drinks/WeekCommentsNever0 (1 standard drink = 0.6 oz pure alcohol)Estimated Date of UazttkqnAbbbdhgnUyk75/01/2025Based on last menstrual period of 09/16/2024Sex and Gender InformationValueDate Recorded Sex Assigned at BirthNot on fileLegal TlzHduftd59/15/2023 11:47 PM EDTGender IdentityNot on fileSexual OrientationNot on filedocumented as of this encounter Last Filed Vital Signs Vital SignReadingTime TakenCommentsBlood Whcxnbdr649/7010 3:11 PM EDT Pulse--Temperature--Respiratory Rate--Oxygen Saturation--Inhaled Oxygen Concentration--Nnizug774 kg (227 lb 6.4 oz)04/30/2025 3:11 PM [...] Frequent UTI 11/30/2020 23 weeks gestation of ([facility]) 02/26/2025 Elevated blood sugar level 02/26/2025 Resolved Ambulatory Problems Diagnosis Date Noted Missed period 01/13/2023 Past Medical History: Diagnosis Date GDM (gestational diabetes mellitus) ([facility]) HISTORY PAST MEDICAL HISTORY SOCIAL HISTORY Past Medical History: Diagnosis Date GDM (gestational diabetes mellitus) ([facility]) Social History Tobacco Use Smoking status: Never [...] nursing note reviewed. Exam conducted with a slate cutter operator present. Vitals: Estimated body mass index is 36.7 kg/m?? as calculated from the following: Height as of 01/30/23: 5' 6 . Weight as of this encounter: 227 lb 6.4 oz. BP: 110/70 Patient's last menstrual period was 09/16/2024. ASSESSMENT & PLAN ICD-10-CM 1. Third trimester ([facility]) Z34.93 2. 32 weeks gestation of ([facility]) Z3A.32 POCT urinalysis dipstick manually resulted Return [...] Plan of Treatment DateTypeDepartmentCare Team (Latest Contact Info)Fszllpplwff48/05/2025 2:00 PM ESTAncillary Procedure [facility] [address] [place] [address] [place] [phone] 05/28/2025 2:30 PM ESTRoutine [facility] S[facility] [address] [place] [phone] Regina Barton PA [address] [place] [address] 07/28/2025 4:00 PM ESTOffice Visit NOMRenzo SANTO [address] [place] [address] [place] [address] Mukul Foy DO [address] [place], [place] [id number] documented as of this encounter Goals GoalPatient Goal TypeAssociated ProblemsRecent ProgressPatient-Stated?Author Reminders Care PlanOB RemindersNoOpen Scheduling, Backgrounddocumented as of this encounter Procedures Procedure NamePriorityDate/TimeAssociated DiagnosisCommentsPOCT URINALYSIS WQSLILXKYdbkmuo74/08/2025 3:19 PM EDT 32 weeks gestation of ([facility]) documented in this encounter Results [...] / LateralityCollection Method / VolumeCollection Time Received JggfXcmij06/08/2025 3:19 PM EDT Narrative Authorizing ProviderResult TypeResult StatusTiffany Li NPPOINT OF CARE TEST ENTER/EDIT ORDERABLESFinal Result documented in this encounter Visit Diagnoses Diagnosis Third trimester ([facility]) state, incidental 32 weeks gestation of ([facility]) documented in this encounter Additional Health Concerns Active ProblemsNoted DateDiagnosed DateOB Vudfhgmkj78/09/2025 documented as of this encounter
--- OUTSIDE RECORDS SUMMARY | 2025-05-14 14:50 | XMS_ITS | Encounter Summary ---
Author Organization [facility] Address [address] [place] [address] Care Team Providers Care Supervisor Cabinetmaker Name Role Phone Unavailable Primary Care Provider Unavailabl e Reason for Visit * ReasonCommentsRoutine Visit Encounter Details DateTypeDepartmentCare Team (Latest Contact Info)Jogdkkfufzp35/22/2025 2:50 PM EDTRoutine [facility] [address] [facility] [address] [place] [address] Mukul Foy DO [address] [facility] [address] [place], [place] [phone] Third trimester ([facility]); 34 weeks gestation of ([facility]); Insulin controlled gestational diabetes mellitus (GDM) during , antepartum ([facility]); Gestational diabetes mellitus (GDM), antepartum, gestational diabetes method of control unspecified([facility]) Social History Tobacco UseTypesPacks/DayYears UsedDateSmoking Tobacco: NeverSmokeless Tobacco: NeverAlcohol UseStandard Drinks/WeekCommentsNever0 (1 standard drink = 0.6 oz pure alcohol)Estimated Date of YixfltnvQbkbknhxFrn48/01/2025Based on last menstrual period of 09/16/2024Sex and Gender InformationValueDate Recorded Sex Assigned at BirthNot on fileLegal PwvRzqkxl40/15/2023 11:47 PM EDTGender IdentityNot on fileSexual OrientationNot on filedocumented as of this encounter Last Filed Vital Signs Vital SignReadingTime TakenCommentsBlood Vpwzovdb164/7010 3:05 PM EDT Pulse--Temperature--Respiratory Rate--Oxygen Saturation--Inhaled Oxygen Concentration--Wqpubr263 kg (232 lb 1.9 oz)05/14/2025 3:05 PM [...] UTI 11/30/2020 23 weeks gestation of ([facility]) 02/26/2025 Elevated blood sugar level 02/26/2025 Resolved Ambulatory Problems Diagnosis Date Noted Missed period 01/13/2023 Past Medical History: Diagnosis Date GDM (gestational diabetes mellitus) ([facility]) HISTORY PAST MEDICAL HISTORY SOCIAL HISTORY Past Medical History: Diagnosis Date GDM (gestational diabetes mellitus) ([facility]) Social History Tobacco Use Smoking [...] nursing note reviewed. Exam conducted with a hall manager present. Vitals: Estimated body mass index is 37.47 kg/m?? as calculated from the following: Height as of 01/30/23: 5' 6 . Weight as of this encounter: 232 lb 1.9 oz. BP: 110/70 Patient's last menstrual period was 09/16/2024. Assessment/Plan ICD-10-CM 1. Third trimester ([facility]) Z34.93 2. 34 weeks gestation of ([facility]) Z3A.34 POCT urinalysis dipstick manually resulted Return [...] Plan of Treatment DateTypeDepartmentCare Team (Latest Contact Info)Lwvtqmrdgvv77/05/2025 2:00 PM ESTAncillary Procedure [facility] [address] [place] [address] [place] [phone] 05/28/2025 2:30 PM ESTRoutine [facility] [address] [place] [address] [place] [phone] Regina Barton PA [address] [facility] [address] [place], [place] [phone] 07/28/2025 4:00 PM ESTOffice Visit NOMRenzo SANTO [address] [place] [address] [place] [address] Mukul Foy DO [address] [facility] [address] [place], [place] [phone] NameTypePriorityAssociated DiagnosesOrder ScheduleUS OB follow up transabdominal approachImagingRoutine Insulin controlled gestational diabetes mellitus (GDM) during , antepartum ([facility]) Expected: 05/14/2025, Expires: 09/14/2025documented as of this encounter Goals GoalPatient Goal TypeAssociated ProblemsRecent ProgressPatient-Stated?Author Reminders Care PlanOB RemindersNoOpen Scheduling, Backgrounddocumented as of this encounter Procedures Procedure NamePriorityDate/TimeAssociated DiagnosisCommentsPOCT URINALYSIS NFSTFQUFJshaeae02/22/2025 3:13 PM EDT 34 weeks gestation of ([facility]) documented in this encounter Results * POCT [...] this encounter Visit Diagnoses Diagnosis Third trimester ([facility]) state, incidental 34 weeks gestation of ([facility]) Insulin controlled gestational diabetes mellitus (GDM) during , antepartum ([facility]) Gestational diabetes mellitus (GDM), antepartum, gestational diabetes method of control unspecified([facility]) documented in this encounter Additional Health Concerns Active ProblemsNoted DateDiagnosed DateOB Idkllygej39/09/2025 documented as of this encounter
--- OUTSIDE RECORDS SUMMARY | 2025-05-24 09:14 | XMS_ITS | Clinical Summary ---
Author Organization [facility] Healthcare Address [address] [place] [address] Care Team Providers Care Lead Generation Marketing Manager Name Role Phone Unavailable Primary Care Provider Unavailabl e Allergies No known active allergies Medications MedicationSigDispense QuantityRefillsLast FilledStart DateEnd DateStatus sertraline (Zoloft) 50 MG tablet Indications:Anxiety, generalizedTAKE 1 TABLET BY MOUTH EVERY DAY IN THE MORNING 30 tablet 304/5Active glucose blood test strip Indications:Gestational diabetes mellitus (GDM), antepartum, gestational diabetes method of control unspecified([facility])Use as instructed 100 each 1206//050331/6Active metFORMIN XR (Glucophage-XR) 500 MG 24 hr tablet Indications:Second trimester ([facility]),20 weeks gestation of ([facility])Take 2 tablets (1,000 mg) by mouth in the evening. Take with meals 60 tablet 507//863026/6Active pantoprazole (Protonix) 40 MG EC tablet Indications:23 weeks gestation of ([facility]),Elevated blood sugar level ,Gastroesophageal reflux disease without esophagitisTake 1 tablet (40 mg) by mouth in the morning. Take before meals. Do not crush, chew, or split. 30 tablet 1108//185802/6Active metoclopramide (Reglan) 10 MG tablet Indications:Gastroesophageal reflux disease without esophagitisTake 1 tablet (10 mg) by mouth in the morning and 1 tablet (10 mg) at noon and 1 tablet (10 mg) in the evening. Take before meals. Take 1 tablet by mouth 30 minutes prior to meals 3 times daily as needed for nausea. 90 tablet 5Active insulin pen needle 29G x 8mm [facility] Indications:Insulin controlled gestational diabetes mellitus (GDM) during , antepartum ([facility])Inject 1 each under the skin Daily [...] Problems ProblemNoted DateDiagnosed Date23 weeks gestation of ([facility]) 02/26/2025Elevated blood sugar level02/26/2025bnormal glucose level01/13/2023 Ikpuljuky52/23/5857Gidpunfnkkv44/23/2023yspareunia in pnnxib3311/30/2020Frequent UTI11/30/20203566Jrhhunt23/07/2020Insomnia due to other mental xugisinl36/10/2020 Other ejdsrie9905/02/2020Estimated Date of EfjbldfhZwoyaxxaWio58/01/2025 Based on last menstrual period of 09/16/2024 Resolved Problems ProblemNoted DateDiagnosed DateResolved DateMissed Encounters DateTypeDepartmentCare XrpfMcfduhyoxhx97/29/2025linisync Result Encounter [facility]OM[facility] External Department Unsolicited Britt Foy DO 05/14/2025 2:50 PM EDTRoutine [facility] [address] [place] [address] [place] [address] Law, Britt, DO Third trimester ([facility]); 34 weeks gestation of ([facility]); Insulin controlled gestational diabetes mellitus (GDM) during , antepartum ([facility]); Gestational diabetes mellitus (GDM), antepartum, gestational diabetes method of control unspecified([facility])05/14/2025amboo flowsheet [facility] [address] [place] [address] Britt Foy, DO 05/02/2025bstract [facility] [place] [facility] [address] [place] [address] Britt Foy, DO 04/30/2025 3:00 PM EDTRoutine [facility] [address] [place] [address] Tiffany Li NP Third trimester ([facility]); 32 weeks gestation of ([facility])04/30/2025linisync Result Encounter NOMS External Department Unsolicited Britt Foy, DO 04/30/2025amboo flowsheet [facility] [place] [facility] [address] [place] [address] Tiffany Li, ASHWIN 04/27/20258094Plgqps84/23/2025bstract [facility] [address] [place] [address] Britt Foy, DO 04/14/2025 3:20 PM EDTRoutine [facility] [address] [place] [address] Regina Cummins PA Third trimester ([facility]); 30 weeks gestation of ([facility])04/14/2025amboo flowsheet [facility] [place] [facility] [address] [place] [address] Regina Cummins PA 04/14/20250982Rzkcjo56/15/2025Telephone [facility] [address] [place] [address] Elizabeth Ware MA 04/05/2025linisync Result Encounter NOMS External Department Unsolicited Regina Cummins PA 04/05/2025linisync Result Encounter NOMS External Department Unsolicited Regina Cummins PA 04/03/2025 3:30 PM EDTRoutine [facility] [address] [place] [address] Regina Cummins PA 28 weeks gestation of ([facility]); Third trimester ([facility]); Dizziness; Gestational diabetes mellitus (GDM), antepartum, gestational diabetes method of control unspecified([facility]); History of miscarriage; Anemia, unspecified type; UTI foeingat71/11/2025amboo flowsheet [facility] [address] [place] [address] Regina Cummins PA 04/02/2025Telephone [facility] [place] [facility] [address] [place] [address] Suyapa Hazel LPN 04/01/20252131Aymhyo08/21/2025bstract [facility] [place] [facility] [address] [place] [address] Britt Foy, 03/12/2025 3:50 PM EDTRoutine [facility] [address] [place] [address] Britt Foy, 25 weeks gestation of ([facility]); Second trimester ([facility]); Gastroesophageal reflux disease without hhnkposirtk17/20/2025amboo flowsheet [facility] [place] [facility] [address] [place] [address] Britt Foy, 03/03/2025bstract [facility] [place] [facility] [address] [place] [address] Britt Foy, 02/28/2025bstract DIANE SANTO [address] [place] [address] Britt Foy, 02/26/2025 3:30 PM EDTRoutine DIANE SANTO [address] [place] [address] Britt Foy, 23 weeks gestation of ([facility]); Elevated blood sugar level; Gastroesophageal reflux disease without tmnurylotus80/06/2025amboo flowsheet DI[facility] SANT[facility] [address] [place] [address] Britt Foy, from Last 3 Months Family History RelationNameStatusCommentsDaughterAliveFatherAliveMotherAliveSisterAlive Social History Tobacco UseTypesPacks/DayYears UsedDateSmoking Tobacco: NeverSmokeless Tobacco: Never Tobacco Cessation:Counseling Given: Not Answered Alcohol UseStandard Drinks/WeekCommentsNever0 (1 standard drink = 0.6 oz pure alcohol)Estimated Date of KxtjuyziLkkzwzfpZcu87/01/2025ased on last menstrual period of 09/16/2024Sex and Gender InformationValueDate RecordedSex Assigned at BirthNot on fileLegal CnzJvccoo88/15/2023 11:47 PM EDTGender IdentityNot on fileSexual OrientationNot on file Last Filed Vital Signs Vital SignReadingTime TakenCommentsBlood Fjzqvrxt964/7005/14/2025 3:05 PM EDT Pulse--Temperature--Respiratory Rate--Oxygen Saturation--Inhaled Oxygen Concentration--Tvhyoi462 kg (232 lb 1.9 oz)05/14/2025 3:05 PM AIRDfiffc603.6 cm (5' 6 )01/30/2023 12:12 PM EDTBody Mass Index37.4707 12:12 PM EDT Plan of Treatment DateTypeDepartmentCare Team (Latest Contact Info)Ejvhvrrdjat54/05/2025 2:00 PM ESTAncillary Procedure DIANE SANTO [address] [place] [address] 05/28/2025 2:30 PM ESTRoutine [facility] [place] [facility] [address] [place] [address] Regina Cummins PA [address] [place] [address] 07/28/2025 4:00 PM ESTOffice Visit NOMRenzo SANTO [address] [place] [address] Britt Foy DO [address] [place] [address] Health MaintenanceDue DateLast DoneCommentsMMR Vaccines (1 of 1 - Standard series)1999DTaP/Tdap/Td Vaccines (1 - Tdap)2005Varicella Vaccines (1 of 2 - 13+ 2-dose series)2011HPV Vaccines (1 - 3-dose series)2013 Hepatitis B Vaccines (1 of 3 - 19+ 3-dose series)2017COVID-19 Vaccine ( - 2024- season)/02/2021, 12/07/2020Influenza Vaccine (#1)2025 HIB VaccinesAged OutNo [...] PlanOB RemindersNoOpen Scheduling, Background Procedures Procedure NamePriorityDate/TimeAssociated DiagnosisCommentsUS OB BPP W NON-JFBYPV5705/21/2025 7:56 PM EDT POCT URINALYSIS RMMZQNSOOpltsve85/22/2025 3:13 PM EDT 34 weeks gestation of ([facility]) US OB BPP W NON-NRYUQO8104/30/2025 10:59 PM EDT POCT URINALYSIS KAAAPWPGTzlznmd90/08/2025 3:19 PM EDT 32 weeks gestation of ([facility]) POCT URINALYSIS NUTXMPYTNhhmljm77/22/2025 3:54 PM EDT Third trimester ([facility] US OB JJYRWZ1304/05/2025 12:08 PM EDT ALL CBC WITH AUTO NZTGQgbxmye38/13/2025 10:33 AM EDT URINARY TRACT INFECTION (HTRX)Tbkqctj7304/03/2025 3:53 PM EDT POCT URINALYSIS DRORBDDEIxgptuw69/11/2025 3:51 PM EDT 28 weeks gestation of ([facility]) Third trimester ([facility]) POCT URINALYSIS QXBIDCUNMbskuil87/20/2025 4:14 PM EDT 25 weeks gestation of ([facility]) Second trimester ([facility]) POCT URINALYSIS DWLHJGPRTnuxetq90/06/2025 4:03 PM EDT 23 weeks gestation of ([facility]) Elevated blood sugar level from Last 3 Months Results * US OB BPP W NON-STRESS (05/21/2025 7:56 PM EDT) Only the most recent of2 resultswithin the time period is included. Anatomical RegionLateralityModalityOtherSpecimen (Source)Anatomical Location / LateralityCollection Method / VolumeCollection TimeReceived Time05/21/2025 7:56 PM EDT Narrative 05/21/2025 7:59 PM EDT [facility] ?[address] ? [place] [address] ? Ultrasound Report ? Signed ? Patient: VINNY HERRERA C ?MR#: [id number] ?? : 2000 ?Acct:[id number] ?? Age/Sex: 24 / F ?ADM Date: 05/21/25 ?? Loc: US ? Attending Dr: Britt Foy D.O. ? Ordering Physician: Britt Foy D.O. ?? Date of Service: 05/21/25 ?? Procedure(s): US OB BPP w non-stress ?? Accession Number(s): [id number] ? cc: Britt Foy D.O.; Ynes Mistry SURFACING MACHINE OPERATOR ? [facility] ? [address] ? [place] [address] ? Patient Name: ?? VINNY HERRERA ? MRN: [facility]:[id number] ? date: 2000 ?Sex: F ?? Assigned Patient Location: FB ?? Current Patient Location: ? Accession/Order Number: [id number] ?? Exam Date: 05/21/2025 ??16:12 ?Report Date: 05/21/2025 ??19:56 ? At the request of: ?? BRITT ??LAW ??DO ? Procedure: ??US OB BPP w non-stress ? Ultrasound biophysical profile ? INDICATION: Gestational diabetes ? COMPARISON: 05/07/2025 ? FINDINGS/IMPRESSION:: Fetus cephalic position. ?? 8/8 score biophysical ?? profile. ?? heart rate 139 beats per minutes. ??JAMAL 19.1 cm . ? Impression dictated by: Chevy Moreland M.D. ??05/21/2025 7:56 PM ? Dictation Location: [facility]-PC-29 ? Electronically authenticated by: [id number] ??Y ?? Date: 05/21/2025 ??19:56 ? Dictated By: ?Chevy Moreland M.D. ? Signed By: ?05/21/ 1959 ? DD/DT: 05/21/ 1956 ? TD/TT: ? Marine Fire Fighter: Procedure Note Radiology, Radiologist, - 05/21/2025 [place] [address] Ultrasound Report Signed Patient: VINNY HERRERA CMR#: [id number] : 2000Acct:[id number] Age/Sex: 24 / FADM Date: 05/21/25 Loc: US Attending Dr: Britt Foy D.O. Ordering Physician: Britt Foy D.O. Date of Service: 05/21/25 Procedure(s): US OB BPP w non-stress Accession Number(s): [id number] cc: Britt Foy D.O.; Ynes Mistry SURFACING MACHINE OPERATOR The [place] [id number] Patient Name: VINNY HERRERA MRN: [facility]:[id number] date: 2000 Sex: F Assigned Patient Location: [facility] Current Patient Location: Accession/Order Number: [id number] Exam Date: 05/21/2025 16:12 Report Date: 05/21/2025 19:56 At the request of: BRITT FOY DO Procedure: US OB BPP w non-stress Ultrasound biophysical profile INDICATION: Gestational diabetes COMPARISON: 05/07/2025 FINDINGS/IMPRESSION:: Fetus cephalic position. 8/8 score biophysical profile. heart rate 139 beats per minutes. JAMAL 19.1 cm . Impression dictated by: Chevy Moreland M.D. 05/21/2025 7:56 PM Dictation Location: [place] [address] Electronically authenticated by: [id number] Y Date: 9:56 Dictated By: Chevy Moreland M.D. Signed By:05/21/251958 DD/ 55 TD/TT: Marine Fire Fighter: Authorizing ProviderResult TypeResult StatusCorey Law DOCLINISYNC IMAGINGFinal Result * POCT urinalysis dipstick manually resulted (05/14/2025 3:13 PM EDT) Only the most recent of6 resultswithin the time period is included. ComponentValueRef RangeTest MethodAnalysis TimePerformed AtPathologist Signature Color, UAYellowClarity, UAClearGlucose, UANegativeNegative - 1999(110) ++++ mg/dLBilirubin, UANegativeNegative - 4(70) +++ mg/dLKetones, UANegativeNegative - 160(16) ++++ mg/dLSpec Grav, UA1.0101 - 1.03Blood, UANegativeNegative - 50 Yunior/mcLpH, UA6.55 - 9Protein, UANegativeNegative - 2000(20) ++++ mg/dL Urobilinogen, UA2.00.2 - 12 mg/dLLeukocytes, UANegativeNegative - 500+++ Trip/mcL Nitrite, UANegativeNegative - PositiveSpecimen (Source)Anatomical Location / LateralityCollection Method / VolumeCollection TimeReceived ZsvkCyoji14/22/2025 3:13 PM EDT Narrative Authorizing ProviderResult TypeResult StatusCorey Law DOPOINT OF CARE TEST ENTER/EDIT ORDERABLESFinal Result * US OB GROWTH (04/05/2025 12:08 PM EDT)Anatomical RegionLateralityModalityOther Specimen (Source)Anatomical Location / LateralityCollection Method / Volume Collection TimeReceived Time04/05/2025 12:08 PM EDT Narrative 04/05/2025 12:11 PM EDT [facility] ?[address] ? [place] [address] ? Ultrasound Report ? Signed ? Patient: VINNY HERRERA ?MR#: [id number] ?? : 2000 ?Acct:[id number] ?? Age/Sex: 24 / F ?ADM Date: 04/05/25 ?? Loc: US ? Attending Dr: Regina Cummins ? Ordering Physician: Regina Cummins ?? Date of Service: 04/05/25 ?? Procedure(s): US OB growth ?? Accession Number(s): [id number] ? cc: Regina Cummins; Physician,Non-Staff M.D. ? [facility] ? [address] ? [place] [address] ? Patient Name: ?? VINNY HERRERA ? MRN: [facility]:[id number] ? date: 2000 ?Sex: F ?? Assigned Patient Location: ?? Current Patient Location: LAB ?? Accession/Order Number: [id number] ?? Exam Date: 04/05/2025 ??10:00 ?Report Date: [...] M.D. ??04/05/2025 12:08 PM ? Dictation Location: [facility]-PC-20 ? Electronically authenticated by: [id number] ??Y ?? Date: 04/05/2025 ??12:08 ? Dictated By: ?Daryn Peraza D.O. ? Signed By: ?04/05/25 1211 ? DD/ 1208 ? TD/TT: ? Marine Fire Fighter: Procedure Note Radiology, Radiologist, - 04/05/2025 The [place] [id number] Ultrasound Report Signed Patient: VINNY HERRERA CMR#: [id number] : 2000Acct:[id number] Age/Sex: 24 / FADM Date: 04/05/25 Loc: US Attending Dr: Regina Cummins Ordering Physician: Regina Cummins Date of Service: 04/05/25 Procedure(s): US OB growth Accession Number(s): [id number] cc: Regina Cummins; Physician,Non-Staff M.D. The [address] [address] Patient Name: VINNY HERRERA MRN: [facility]:[id number] date: 2000 Sex: F Assigned Patient Location: US Current Patient Location: LAB Accession/Order Number: [id number] Exam Date: 04/05/2025 10:00 Report Date: 04/05/2025 [...] Peraza M.D. 04/05/2025 12:08 PM Dictation Location: [employer] Electronically authenticated by: [id number] Y Date: 2:08 Dictated By: Daryn Peraza D.O. Signed By:04/05/25 1211 DD/ 1208 TD/TT: Marine Fire Fighter: Authorizing ProviderResult TypeResult StatusRegina Maria G [facility] IMAGINGFinal Result * (ABNORMAL) ALL CBC WITH AUTO DIFF (04/05/2025 10:33 AM EDT)ComponentValueRef RangeTest MethodAnalysis TimePerformed AtPathologist SignatureTBH WBC11.04.0 - 11.0 10 3/uLTBHTBH RBC3.47(L)4.20 - 5.40 10 6/uLTBHTBH HGB10.3(L)12.0 - 16.0 g/dLTBHTBH HCT30.7(L)36.0 - 48.0 %TBHTBH MCV88.581.0 - 99.0 fLTBHTBH MCH29.7 26.7 - 34.0 pgTBHTBH MCHC33.629.9 - 35.2 g/dLTBHTBH RDW12.811.0 - 15.0 %TBHTBH BQU267940 - 450 10 3/uLTBHTBH MPV8.7(L)9.5 - 13.5 [...] G PACLINISYNCFinal Result Performing OrganizationAddressCity/State/ZIP CodePhone Number [facility] * URINARY TRACT INFECTION (HTRX) (04/03/2025 3:53 PM EDT)ComponentValueRef Range Test MethodAnalysis TimePerformed AtPathologist SignatureACINETOBACTER HQSVHHHA629.961 - 24.689 ppm04/04/2025 7:51 AM EDTHealthTrackRx at [facility] ACINETOBACTER BAUMANIINot Wdfgxpjc87.961 - 24.689 ppm04/04/2025 7:51 AM EDT [facility] LabPortCITROBACTER NVDDPZSN339.000 - 32.015 ppm04/04/2025 7:51 AM EDTHealthTrackRx at LabPortCITROBACTER FREUNDIINot Qbawwqjt57.000 - 32.015 ppm04/04/2025 7:51 AM EDTHealthTrackRx at LabPortENTEROBACTER AEROGENES, ZABXVHU236.000 - 32.290 ppm04/04/2025 7:51 AM EDTHealthTrackRx at LabPortENTEROBACTER AEROGENES, CLOACAENot Cyuqguks46.000 - 32.290 ppm 04/04/2025 7:51 AM EDTHealthTrackRx at LabPortENTEROCOCCUS FAECALIS, FAECIUM0 26.000 - 33.043 ppm04/04/2025 7:51 AM EDTHealthTrackRx at LabPortENTEROCOCCUS FAECALIS, FAECIUMNot Mowpdnvk01.000 - 33.043 ppm04/04/2025 7:51 AM EDT [facility] at LabPortESCHERICHIA YZLZ241.000 - 28.500 ppm04/04/2025 7:51 AM EDTHealthTrackRx at LabPortESCHERICHIA COLINot Nsatrjag46.000 - 28.500 ppm 04/04/2025 7:51 AM EDTHealthTrackRx at LabPortKLEBSIELLA PNEUMONIAE, OXYTOCA0 23.000 - 31.865 ppm04/04/2025 7:51 AM EDTHealthTrackRx at LabPortKLEBSIELLA PNEUMONIAE, OXYTOCANot Cexhhack73.000 - 31.865 ppm04/04/2025 7:51 AM EDT [facility] at LabPortMORGANELLA TXRMBMCJ699.961 - 24.689 ppm04/04/2025 7:51 AM EDTHealthTrackRx at LabPortMORGANELLA MORGANIINot Mrrnkwxu29.961 - 24.689 ppm04/04/2025 7:51 AM EDTHealthTrackRx at LabPortPROTEUS MIRABILIS, VULGARIS0 23.000 - 28.500 ppm04/04/2025 7:51 AM EDTHealthTrackRx at LabPortPROTEUS MIRABILIS, VULGARISNot Hhoifqso18.000 - 28.500 ppm04/04/2025 7:51 AM EDT [facility] at LabPortPSEUDOMONAS EAVLKVAFIN750.000 - 31.801 ppm04/04/2025 7:51 AM EDTHealthTrackRx at LabPortPSEUDOMONAS AERUGINOSANot Lmwjksgf18.000 - 31.801 ppm04/04/2025 7:51 AM EDTHealthTrackRx at LabPortSTAPHYLOCOCCUS AUREUS0 26.000 - 31.595 ppm04/04/2025 7:51 AM EDTHealthTrackRx at [facility] STAPHYLOCOCCUS AUREUSNot Ntclrebr35.000 - 31.595 ppm04/04/2025 7:51 AM EDT [facility] at LabPortSTREPTOCOCCUS AGALACTIAE (GROUP B STREP)026.000 - 32.435 ppm04/04/2025 7:51 AM EDTHealthTrackRx at LabPortSTREPTOCOCCUS AGALACTIAE (GROUP B STREP)Not Orxoophj81.000 - 32.435 ppm04/04/2025 7:51 AM EDTHealthTrackRx at LabPortCANDIDA ALBICANS, PARAPSILOSIS, JRSXDZZOQK542.000 - 30.347 ppm04/04/2025 7:51 AM EDTHealthTrackRx at LabPortCANDIDA ALBICANS, PARAPSILOSIS, TROPICALISNot Ayvxrjic21.000 - 30.347 ppm04/04/2025 7:51 AM EDT [facility] LabPortCANDIDA IADXDJVQ329.000 - 31.618 ppm04/04/2025 7:51 AM EDTHealthTrackRx at LabPortCANDIDA GLABRATANot Kqrsbeai63.000 - 31.618 ppm 04/04/2025 7:51 AM EDTHealthTrackRx at LabPortCANDIDA MLUSUE229.000 - 30.873 ppm04/04/2025 7:51 AM EDTHealthTrackRx at LabPortCANDIDA KRUSEINot Detected 23.000 - 30.873 ppm04/04/2025 7:51 AM EDTHealthTrackRx at LabPortSERRATIA TFGSPIWFLP344.000 - 31.581 ppm04/04/2025 7:51 AM EDTHealth[facility] at [facility] SERRATIA MARCESCENSNot Qjofypzg46.000 - 31.581 ppm04/04/2025 7:51 AM EDT [facility] at LabPortSTREPTOCOCCUS PYOGENES (GROUP A STREP)019.961 - 24.689 ppm04/04/2025 7:51 AM EDTHealthTrackRx at LabPortSTREPTOCOCCUS PYOGENES (GROUP A STREP)Not Pkdpvssx05.961 - 24.689 ppm04/04/2025 7:51 AM EDTHealthTrackRx at [facility] SystemSTAPHYLOCOCCUS EPIDERMIDIS, HAEMOLYTICUS, LUGDUNENSIS, SAPROPHYTICUS (QUOJF818.961 - 24.689 ppm04/04/2025 7:51 AM EDTHealth[facility] STAPHYLOCOCCUS EPIDERMIDIS, HAEMOLYTICUS, LUGDUNENSIS, SAPROPHYTICUS (URINANot Tityizrc50.961 - 24.689 ppm04/04/2025 7:51 AM EDTHealth[facility] at [facility] STAPHYLOCOCCUS EPIDERMIDIS, HAEMOLYTICUS, LUGDUNENSIS, SAPROPHYTICUS (URINA0 19.961 - 24.689 ppm04/04/2025 7:51 AM EDTHealth[facility] at [facility] STAPHYLOCOCCUS EPIDERMIDIS, HAEMOLYTICUS, LUGDUNENSIS, SAPROPHYTICUS (URINANot Pggtzctr76.961 - 24.689 ppm04/04/2025 7:51 AM EDTHealthTrackRx at [facility] Specimen (Source)Anatomical Location / LateralityCollection Method / Volume Collection TimeReceived KordLlhjc43/11/2025 3:53 PM EDT04/04/2025 1:35 AM EDT Narrative Authorizing ProviderResult TypeResult StatusAmy [facility] BLOOD ORDERABLES Final ResultPerforming OrganizationAddressCity/State/ZIP CodePhone Number [facility] [address] [address] from Last 3 Months Additional Health Concerns Active ProblemsNoted DateDiagnosed DateOB Ununkpjfx37/09/2025 Insurance
--- OUTSIDE RECORDS SUMMARY | 2025-05-24 09:14 | XMS_ITS | Clinical Summary ---
Author Organization [facility] Address [address], [address] [place] [address] Care Team Providers Care Chinese Medicine Practitioner Name Role Phone Ynes Mistry MANAGER OF MANUFACTURING - STORAGE ARCHITECT Primary Care Provide r Allergies No known [...] [address] 200 mg vaginally cmherzv35/26/2025Active sertraline (ZOLOFT) 25 MG tablet Take 1 tablet by mouth daily 30 tablet 5Active Active Problems ProblemNoted DateDiagnosed DateGastroesophageal reflux nlshkdr9111/12/2024Other hyperlipidemia [E78.49]06/04/20242083Sbefenq24/12/2024Hepatic okwidreiq80/14/2024 Elevated liver ligdbqa6803/01/2024Mixed gqffritzvtfpvz60/30/2024Iron deficiency xemwob5710/25/2023Gestational diabetes mellitus (GDM) affecting second 07/24/20220809Yfjdbvt15/07/2020Seasonal allergic afafzfsb43/07/2020Other fatigue 05/02/2020 Resolved Problems ProblemNoted DateDiagnosed DateResolved DateSore krlnsj53503/5Acne /Irregular uwfcfz11/Frequent UTI11/30/2020 02/20/2024yspareunia in cyeebw60/Insomnia due to other mental clkoqdnk07 Encounters DateTypeDepartmentCare BvoxHgbkslsiouo11/30/2025Orders Only [address] [place] [address] Ynes Mistry, MANAGER OF MANUFACTURING - STORAGE ARCHITECT 05/13/2025Orders Only [address] [place] [address] Provider, MD Yuval 05/01/2025Orders Only [address] [place] [address] Provider, MD Yuval from Last 3 Months Immunizations ImmunizationAdministration DatesNext DueCOVID-19, Inactive, PFIZER PURPLE top, DILUTE for use, (age 12 y+)12/29/2020,6024BDqV83/29/2004,03/13/2000, 03/12/1999,01/18/1999,1998DTaP, INFANRIX, (age 6w-6y), IM, 0.5mL11/20/2003 ,03/13/2000,03/12/1999,01/18/1999,1998HPV [...] (1 standard drink = 0.6 oz pure alcohol)Critical access hospital UtilitiesAnswerDate RecordedIn the past 12 months has the electric, gas, oil, or water company threatened to shut off services in your home?No10/07/2024Overall Financial Resource Strain (CARDIA)AnswerDate Recorded How hard is it for you to pay for the very basics like food, housing, medical care, and heating?Not hard at all07/13/2023HQ-2AnswerDate RecordedPHQ-9 Total Mwbrd668Hunger Vital SignAnswerDate RecordedWithin the past 12 months, [...] steady place to sleep or slept in [facility] (including now)?No07/13/2023Housing Stability Vital SignAnswerDate RecordedIn the [...] out before you got the money to buymore.103/17/2025Within the past 12 months, the food you bought just didn't last and you didn't have money to get more.CommentsNoSex and Gender InformationValueDate RecordedSex Assigned at QbotmTqjbmr64/28/2024 8:24 PM EDTLegal UeqXesmjl50/10/2013 3:31 PM ESTGender IfywaxmyDrbovt11/28/2024 8:24 PM EDTSexual OrientationNot on file Last Filed Vital Signs Vital SignReadingTime TakenCommentsBlood Fkdqjrii456/7204 11:39 AM EDT Yrqap9047 11:39 AM RGPMdbnkiomqpq74.1 ??C (96.9 ??F)11/12/2024 11:39 AM EDTRespiratory Ibxd528110/07/2024 1:43 PM EDTOxygen Hlrpekaaut62%11/12/2024 11:39 AM EDTInhaled Oxygen Concentration--Wtkegd26.1 kg (203 lb)11/12/2024 11:39 AM KEQMukdld465.1 cm (5' 5 )10/07/2024 1:43 PM EDTBody Mass Index33.78010/07/2024 1:43 PM EDT Plan of Treatment Health MaintenanceDue DateLast DoneCommentsDTaP/Tdap/Td vaccine (7 - Td or Tdap) /, 11/20/2003, 11/20/2003, Additional history existsFlu vaccine (#1)5COVID-19 Vaccine ( season)506/02/2021, 1Depression Cuvapd50601/, 08/07/2024Pap smear07/15/2027 07/15/2024, 07/15/2023, 07/05/2023, Additional history existsHepatitis B vaccine Kwvnoxmyb04/17/1999, 1998, 1998Hib shomfsnIbswhysoq15/21/2000, 03/12/1999, 01/18/1999, Additional history existsPolio vaccineCompleted 11/20/2003, 03/13/2000, 01/18/1999, Additional history existsVaricella vaccine Veqrhzybi84/20/2011, 12/22/1999Hepatitis A wrwjofaZvytforel34/27/2012, 08/19/2011, 02/09/2011, Additional history existsMeningococcal (ACWY) vaccine Wnxqiccll75/19/2016, 2014, 01/12/2011HPV aququjkVgdtfctly40/28/2018, 05/01/2017, 02/24/2017HIV juhsjpKnjhyxvsx84/12/2020Chlamydia/GC screen Ebldvvlqfwvj43/29/2021, 03/03/2020, 02/21/2019, Additional history exists Hepatitis C duqcbhFcbeoritm48/27/2024Depression MonitoringDiscontinued 08/07/2024, 08/07/20241285IjhdzzVffjeawrkgro91/27/2025, 05/20/2024, 02/16/2024, Additional history existsMeningococcal B vaccineAged OutNo longer eligible based on patient's age to complete this topicPneumococcal 0-49 years VaccineAged Out No longer eligible based on patient's age to complete this topic Procedures Procedure NamePriorityDate/TimeAssociated DiagnosisCommentsBIOPHYSICAL PROFILE Afydfrr38/29/2025CHG BIOPHYSICAL PROFILE NON-STRESS TESTINGRoutine 05/07/2025 3:54 PM EDTBIOPHYSICAL PROFILE W/VUXZvhnynq48/08/2025 11:39 AM EDTHM PAP MJJJKTelnzai48/23/2024 LIPID RIQMBQqkalqe06/28/2024 9:59 AM EDT Mixed hyperlipidemia HEPATITIS C CMFZWYTTTdbatbd63/27/2024 8:25 AM EDT Need for hepatitis C screening test Wellness examination C.TRACHOMATIS N.GONORRHOEAE DNA, DIQDPSscdbds74/29/2021 1:57 PM EDT Frequent UTI HIV ECQPHHIvstjeu78/12/2020 3:27 PM EDT Encounter for screening for HIV from Last 3 Months or Most Recently Relevant to Health Maintenance Results * Biophysical profile (05/21/2025) Narrative Authorizing ProviderResult TypeResult StatusHistorical Provider MDOB GYNE ORDERABLESFinal Result * CHG BIOPHYSICAL PROFILE NON-STRESS TESTING (05/07/2025 [...] Time07/15/2024 Narrative Authorizing ProviderResult TypeResult StatusHistorical Provider MDHEALTH MAINTENANCEEdited Result - Final * Hepatitis C Antibody (10/18/2023 8:25 AM EDT)ComponentValueRef RangeTest MethodAnalysis TimePerformed AtPathologist SignatureHepatitis C AbNONREACTIVE XYNKKIMHHDG58/27/2024 8:25 AM EDTMERCY LABORATORIESComment: ? The hepatitis [...] / Volume Collection TimeReceived TimeBloodBLOOD SPECIMEN / Nebazlb5110/18/2023 8:25 AM EDT 10/18/2023 8:26 AM EDT Narrative Authorizing ProviderResult TypeResult Gerardo Mistry MANAGER OF MANUFACTURING - CNPIMMUNOLOGY ORDERABLESFinal ResultPerforming OrganizationAddressCity/State/ZIP CodePhone Number [facility] [address] [place] [address], [facility] [phone] [address], [facility] [phone] * C.trachomatis N.gonorrhoeae DNA, Urine (11/19/2020 1:57 PM EDT)ComponentValue Ref RangeTest MethodAnalysis TimePerformed AtPathologist SignatureSpecimen Description.URINE11/19/2020 1:57 PM EDTMERCY LABORATORIESC. trachomatis DNA ,GvawxQZQWSPVXTUHCSJWV63/29/2021 1:57 PM EDTMERCY LABORATORIESComment: CHLAMYDIA TRACHOMATIS DNA not detected by nucleic acid amplification. ? This test is intended for medical purposes only and is not valid for the evaluation of suspected sexual abuse or for other forensic purposes. In certain contexts, culture may be required to meet applicable laws and regulations for diagnosis of C. trachomatis and N. gonorrhoeae infections. Per 2014 ??CDC recommendations, this test does not include confirmation of positive results by an alternative nucleic acid target. N. gonorrhoeae DNA, MzswxRRUOHPEQDTDNXYWP38/29/2021 1:57 PM EDTMERCY LABORATORIESComment: NEISSERIA GONORRHOEAE DNA not detected by nucleic acid amplification. ? This test is intended for medical purposes only and is not valid for the evaluation of suspected sexual abuse or for other forensic purposes. In certain contexts, culture may be required to meet applicable laws and regulations for diagnosis of C. trachomatis and N. gonorrhoeae infections. Per 2014 ??CDC recommendations, this test does not include confirmation of positive results by an alternative nucleic acid target. Specimen (Source)Anatomical Location / LateralityCollection Method / Volume Collection TimeReceived VgqzQhrut03/29/2021 1:57 PM EDT11/19/2020 1:57 PM EDT Narrative Authorizing ProviderResult TypeResult StatusBethrupinder Ricks MANAGER OF MANUFACTURING - STORAGE ARCHITECT MICROBIOLOGY - GENERAL ORDERABLESFinal ResultPerforming OrganizationAddress City/State/ZIP CodePhone Number [facility] [address] [place] [address], [facility] [phone] [address], [facility] [phone] * HIV Screen (05/04/2020 3:27 PM EDT)ComponentValueRef RangeTest MethodAnalysis TimePerformed AtPathologist SignatureHIV Ag/LmWDPJYLOXSJGOKPCKBVOQWC98/12/2020 3:27 PM EDTMERCY LABORATORIESComment: No laboratory evidence of HIV infection. ??If acute HIV infection is suspected, consider testing for HIV-1 RNA. Specimen (Source)Anatomical Location / LateralityCollection Method / Volume Collection TimeReceived TimeBLOOD SPECIMEN / Twcwbau6405/04/2020 3:27 PM EDT 05/04/2020 3:28 PM EDT Narrative Authorizing ProviderResult TypeResult StatusYnes Mistry MANAGER OF MANUFACTURING - CNPIMMUNOLOGY ORDERABLESFinal ResultPerforming OrganizationAddressCity/State/ZIP CodePhone Number [facility] [address] [place] [address], [facility] [phone] [facility] [address] [place], [place] [address] [phone] from Last 3 Months or Most Recently Relevant to Health Maintenance Insurance Care Teams Team MemberRelationshipSpecialtyStart DateEnd Date Ynes Mistry, JOSE J - STORAGE ARCHITECT [address] [place] [address] [address] [place] [phone] PCP - GeneralFamily Nurse Practitioner08/02/22
--- OUTSIDE RECORDS SUMMARY | 2025-05-24 09:14 | XMS_ITS | Clinical Summary ---
Author Organization [facility] Address [address] [place] [address] Care Team Providers Care Preboarder Name Role Phone Ynes Mistry INFORMATION SECURITY ARCHITECT Primary Care Provider Allergies No known active [...] anemia s/p -hgb 10.8 per recent labs Mebvefqxkviv08/28/2023 Assessment & Plan (03/30/2023 1:01 PM EDT): - 30-day event monitor - we will hold off on starting medication until follow-up Abnormal glucose levelHeartburn Balsnrqrvun00yspareunia in wddajl42Frequent UTInxiety Assessment & Plan (03/30/2023 1:01 PM EDT): - takes sertraline 50 mg daily Seasonal allergic nmyulvio16Insomnia due to other mental cnflawnx67Other rcrugfb62 Assessment & Plan (03/30/2023 1:02 PM EDT): - could be related to being , anemia -monitor and echo to rule out cardiac concern Encounters DateTypeDepartmentCare EjamMnpmcyppmjc35/05/2025Telephone [facility] at [facility] [address] [place] [address] Cailin yRan MA from Last 3 Months Family History Medical HistoryRelationNameCommentsHyperlipidemiaFatherSupraventricular tachycardiaFatherAnemiaMotherDiabetesSisterRelationNameStatusCommentsFather MotherSister Social History Tobacco UseTypesPacks/DayYears UsedDateSmoking Tobacco: NeverSmokeless Tobacco: Never Tobacco Cessation:Counseling Given: Not Answered Alcohol UseStandard Drinks/WeekCommentsNot Currently0 (1 standard drink = 0.6 oz pure alcohol)[place] Safety & EnvironmentAnswerDate RecordedFear of Current or Ex-PartnerNot on file09/15/2023Emotionally AbusedNot on file09/15/2023hysically AbusedNot on file09/15/2023Sexually AbusedNot on file09/15/2023hysically or Sexually AbusedNot on file09/15/2023CommentsUnknownSex and Gender InformationValueDate RecordedSex Assigned at BirthNot on fileLegal SexFemale 03/17/2023 11:34 AM EDTGender IdentityNot on fileSexual OrientationNot on file Last Filed Vital Signs Vital SignReadingTime TakenCommentsBlood Pahkygpd957/7607/11/2023 4:27 PM EST Kkffu514607/11/2023 4:27 PM ESTTemperature--Respiratory Rate--Oxygen Rwfsifdhgc49% 07/11/2023 4:27 PM ESTInhaled Oxygen Concentration--Bsbvzd32.7 kg (211 lb) 07/11/2023 4:27 PM NEJIxgcmp488.6 cm (5' 6 )07/11/2023 4:27 PM ESTBody Mass Index34.0607/11/2023 4:27 PM EST Plan of Treatment Health MaintenanceDue DateLast DoneCommentsDepression Rcnrstcvz38/17/2011dult Bmfehyi63/COVID-19 Vaccine (3 - 2024- season)2025 12/29/2020, 12/07/2020Influenza Vaccine (#1)2025Pap Smear04/18/2025 04/18/2022Zoster Vaccines (1 of 2)9002/09/2011, 12/22/1999HIB Vaccines Hisgiekjq87/21/2000, 03/12/1999, 01/18/1999, Additional history existsIPV AlwnmjpjXrfyckxia68/29/2004, 03/13/2000, 01/18/1999, Additional history exists Varicella HtobccqnMdzbzikjf22/20/2011, 12/22/1999Meningococcal VaccineCompleted 03/11/2016, 2014, 01/12/2011HPV CdqgsgbaYkdwnllae79/28/2018, 05/01/2017, 02/24/2017Meningococcal B VaccineAged OutNo longer eligible based on patient's age to complete this topicPneumococcal Vaccine: Pediatrics (0 to 5 Years) and At-Risk Patients (6 to 64 Years)Aged OutNo longer eligible based on patient's age to complete this topicRotavirus VaccinesAged OutNo longer eligible based on patient's age to complete this topic Insurance Care Teams Team MemberRelationshipSpecialtyStart DateEnd Date Ynes Mistry, INFORMATION SECURITY ARCHITECT [address] [place] [address] [facility] [address] [place] [address] [facility]03/20/23
--- OUTSIDE RECORDS SUMMARY | 2025-05-24 09:14 | XMS_ITS | Encounter Summary ---
Author Organization [facility] Address [address], [address] [place] [address] Care Team Providers Care Vacation Planner Name Role Phone Ynes Mistry TALENT ACQUISITION LEAD - CHASSIS WIRER Primary Care Provide r Encounter Details DateTypeDepartmentCare Team (Latest Contact Info)Wuzfqtilmmu60/21/2025Orders Only [facility] [address] [place] [address] [address] [place] [phone] Provider, MD Yuval Social History Tobacco UseTypesPacks/DayYears UsedDateSmoking Tobacco: NeverSmokeless Tobacco: NeverAlcohol UseStandard Drinks/WeekCommentsNot Currently0 (1 standard drink = 0.6 oz pure alcohol)[facility] UtilitiesAnswerDate RecordedIn the past 12 months has the electric, gas, oil, or water company threatened to shut off services in your home?No10/07/2024Overall Financial Resource Strain (CARDIA)AnswerDate RecordedHow hard is it for you to pay for the very basics like food, housing, medical care, and heating?Not hard at all07/13/2023HQ-2AnswerDate RecordedPHQ-9 Total Klwzc358Hunger Vital SignAnswerDate RecordedWithin the past 12 months, [...] more.CommentsNoSex and Gender InformationValueDate RecordedSex Assigned at CzhclNskcmb27/28/2024 8:24 PM EDTLegal UilDdwdmv43/10/2013 3:31 PM ESTGender KqcznlbxErfimd79/28/2024 8:24 PM EDTSexual OrientationNot on filedocumented as of this encounter Plan of Treatment Not on file documented as of this encounter Procedures Procedure NamePriorityDate/TimeAssociated DiagnosisCommentsCHG BIOPHYSICAL PROFILE NON-STRESS LACPMHQXojzbdk20/15/2025 3:54 PM EDTdocumented in this encounter Results * CHG BIOPHYSICAL PROFILE NON-STRESS TESTING (05/07/2025 3:54 PM EDT) Narrative Authorizing ProviderResult TypeResult StatusHistorical Provider MDPR IMAGING Final Result documented in this encounter Visit Diagnoses Not on filedocumented in this encounter Care Teams Team MemberRelationshipSpecialtyStart DateEnd Date Ynes Mistry, TALENT ACQUISITION LEAD - CHASSIS WIRER [address] [facility] [place] [phone] PCP - GeneralFamily Nurse Practitioner08/02/22documented as of this encounter
--- OUTSIDE RECORDS SUMMARY | 2025-05-24 09:14 | XMS_ITS | Clinical Summary ---
Author Organization [facility] Address [address] [place], [place] [address] Care Team Providers Care Sales Promotion Manager Name Role Phone Unavailable Primary Care Provider Unavailabl e Allergies No known active allergies Medications MedicationSigDispense QuantityRefillsLast FilledStart DateEnd DateStatus benzonatate (TESSALON PERLE) 100 mg capsule Take 1-2 capsules every 8 hours as needed. 60 capsule 4Active Active Problems No known active problems Social History Tobacco UseTypesPacks/DayYears UsedDateSmoking Tobacco: Never Assessed CommentsUnknownSex and Gender InformationValueDate RecordedSex Assigned at Not on fileLegal CcdXskfdd43/14/2024 10:20 AM ESTGender IdentityNot on file Sexual OrientationNot on file Plan of Treatment Health MaintenanceDue DateLast DoneCommentsPeds To Adult Transition Initial Siofgpsqed32/17/2011Peds To Adult Transition Annual Amejdhtvsp31/17/2013nxiety Luitwebca42/17/2017Depression Ejxslhtfw84/17/2017HIV Kzkjnjogl32/17/2017 Hepatitis C Mssftcetw02/17/2017Cervical Cancer Mxfqkdawv98/17/2020DTaP,Tdap,Td Vaccine (7 - Td or Tdap), 11/20/2003, 03/13/2000, Additional history existsCovid-19 Vaccine ( season)/02/2021, 12/07/2020Influenza Vaccine (#1)2025Hepatitis B VaccineCompleted 06/09/1999, 1998, 1998HPV AgkphunLlhwstuwb53/28/2018, 05/01/2017, 02/24/2017 Insurance
--- OUTSIDE RECORDS SUMMARY | 2025-05-24 09:14 | XMS_ITS | Encounter Summary ---
Author Organization [facility] Address [address], [address] [place] [address] Care Team Providers Care Knockout Worker Name Role Phone Ynes Mistry SPECIAL EFFECTS SPECIALIST - CAKE ICER AND PACKER Primary Care Provide r Encounter Details DateTypeDepartmentCare Team (Latest Contact Info)Nsnhvoevzml93/30/2025Orders Only [facility] Primary Care [address] [place] [address] [address] [place] [address] Ynes Mistry, SPECIAL EFFECTS SPECIALIST - CAKE ICER AND PACKER [address] [place] [address] [place] [phone] Social History Tobacco UseTypesPacks/DayYears UsedDateSmoking Tobacco: NeverSmokeless Tobacco: NeverAlcohol UseStandard Drinks/WeekCommentsNot Currently0 (1 standard drink = 0.6 oz pure alcohol)socialCINC[facility] UtilitiesAnswerDate RecordedIn the past 12 months has the electric, gas, oil, or water company threatened to shut off services in your home?No10/07/2024Overall Financial Resource Strain (CARDIA)AnswerDate RecordedHow hard is it for you to pay for the very basics like food, housing, medical care, and heating?Not hard at all07/13/2023HQ-2AnswerDate RecordedPHQ-9 Total Nkbir679Hunger Vital SignAnswerDate RecordedWithin the past 12 months, [...] steady place to sleep or slept in [place] (including now)?No07/13/2023Housing Stability Vital SignAnswerDate RecordedIn the last 12 months, was there a time when you were not able to pay the mortgage or rent on time?No10/07/2024In the past 12 months, how many times have you moved where you were living? At any time in the past 12 months, were you homeless or living in a half-way (including now)?No10/07/2024Food InsecurityAnswerDate RecordedWithin the past 12 months, you worried that your food would run out before you got the money to buy more.Within the past 12 months, the food you bought just didn't last and you didn't have money to get more.CommentsNoSex and Gender InformationValueDate RecordedSex Assigned at JhxdnTvciju92/28/2024 8:24 PM EDTLegal ThcZrmqdo73/10/2013 3:31 PM ESTGender YpemyjlpQiaaxu68/28/2024 8:24 PM EDTSexual OrientationNot on filedocumented as of this encounter Plan of Treatment Not on file documented as of this encounter Procedures Procedure NamePriorityDate/TimeAssociated DiagnosisCommentsBIOPHYSICAL PROFILE Whocbay4605/21/2025documented in this encounter Results * Biophysical profile (05/21/2025) Narrative Authorizing ProviderResult TypeResult StatusHistorical Provider MDOB GYNE ORDERABLESFinal Result documented in this encounter Visit Diagnoses Not on filedocumented in this encounter Care Teams Team MemberRelationshipSpecialtyStart DateEnd Date Ynes Mistry, SPECIAL EFFECTS SPECIALIST - CAKE ICER AND PACKER [address] [place] [address] [place] [address] PCP - GeneralFamily Nurse Practitioner08/02/22documented as of this encounter
--- OUTSIDE RECORDS SUMMARY | 2025-05-24 09:14 | XMS_ITS | Encounter Summary ---
Author Organization [facility] Address [address] [place] [address] Care Team Providers Care Financial Data Analyst Name Role Phone Unavailable Primary Care Provider Unavailabl e Encounter Details DateTypeDepartmentCare Team (Latest Contact Info)Iwhpepoteqj76/22/2025amboo flowsheet [facility] [address] [place] [address] Mukul Foy DO [address] [place], [facility]11 Social History Tobacco UseTypesPacks/DayYears UsedDateSmoking Tobacco: NeverSmokeless Tobacco: NeverAlcohol UseStandard Drinks/WeekCommentsNever0 (1 standard drink = 0.6 oz pure alcohol)Estimated Date of UprbwpnkWbtsrqrwNbl82/01/2025Based on last menstrual period of 09/16/2024Sex and Gender InformationValueDate Recorded Sex Assigned at BirthNot on fileLegal WgqLqyxyr25/15/2023 11:47 PM EDTGender IdentityNot on fileSexual OrientationNot on filedocumented as of this encounter Plan of Treatment DateTypeDepartmentCare Team (Latest Contact Info)Gaosikxpyaf87/05/2025 2:00 PM ESTAncillary Procedure [facility] [address] [place] [address] 05/28/2025 2:30 PM ESTRoutine [facility] [address] [place] [phone] Regina Barton PA [address] [facility] [address] [facility] [address] [place], [place] [phone] 07/28/2025 4:00 PM ESTOffice Visit [facility] [address] [facility] [address] [place] [address] Mukul Foy DO [address] [facility] [address] [place], [place] [phone] documented as of this encounter Goals GoalPatient Goal TypeAssociated ProblemsRecent ProgressPatient-Stated?Author Reminders Care PlanOB RemindersNoOpen Scheduling, Backgrounddocumented as of this encounter Visit Diagnoses Not on filedocumented in this encounter Additional Health Concerns Active ProblemsNoted DateDiagnosed DateOB Legbjbkwb69/09/2025 documented as of this encounter
--- OUTSIDE RECORDS SUMMARY | 2025-05-24 09:14 | XMS_ITS | Encounter Summary ---
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 Name Role Phone Unavailable Primary Care Provider Unavailabl e Encounter Details DateTypeDepartmentCare Team (Latest Contact Info)Fswcjnbrnvr06/29/2025linisync Result Encounter [facility] Unsolicited Britt Foy DO [address] [place], [facility] Social History Tobacco UseTypesPacks/DayYears UsedDateSmoking Tobacco: NeverSmokeless Tobacco: NeverAlcohol UseStandard Drinks/WeekCommentsNever0 (1 standard drink = 0.6 oz pure alcohol)Estimated Date of TddvddmgQonrdnisDam27/01/2025Based on last menstrual period of 09/16/2024Sex and Gender InformationValueDate Recorded Sex Assigned at BirthNot on fileLegal IglDddhec99/15/2023 11:47 PM EDTGender IdentityNot on fileSexual OrientationNot on filedocumented as of this encounter Plan of Treatment DateTypeDepartmentCare Team (Latest Contact Info)Fwihipuznre95/05/2025 2:00 PM ESTAncillary Procedure [facility] [place] [facility] [address] [place] [address] 05/28/2025 2:30 PM ESTRoutine [facility] [place] [facility] [address] [place] [address] Regina Barton PA [address] [place] [address] 07/28/2025 4:00 PM ESTOffice Visit [facility] [place] J[facility] [address] [place] [phone] Britt Foy, DO [address] [place], [place] [phone] documented as of this encounter Goals GoalPatient Goal TypeAssociated ProblemsRecent ProgressPatient-Stated?Author Reminders Care PlanOB RemindersNoOpen Scheduling, Backgrounddocumented as of this encounter Procedures Procedure NamePriorityDate/TimeAssociated DiagnosisCommentsUS OB BPP W NON-YGQRGG2605/21/2025 7:56 PM EDT documented in this encounter Results * US OB BPP W NON-STRESS (05/21/2025 7:56 PM EDT)Anatomical Region LateralityModalityOtherSpecimen (Source)Anatomical Location / Laterality Collection Method / VolumeCollection TimeReceived Time05/21/2025 7:56 PM EDT Narrative 05/21/2025 7:59 PM EDT [facility] ?[address] ? [place] [address] ? Ultrasound Report ? Signed ? Patient: VINNY HERRERA ?MR#: [id number] ?? : 2000 ?Acct:[id number] ?? Age/Sex: 24 / F ?ADM Date: 05/21/25 ?? Loc: US ? Attending Dr: Britt Foy D.O. ? Ordering Physician: Britt Foy D.O. ?? Date of Service: 05/21/25 ?? Procedure(s): US OB BPP w non-stress ?? Accession Number(s): [id number] ? cc: Britt Foy D.O.; Ynes Mistry FLORAL ARRANGER ? [facility] ? [address] ? [place] [address] ? Patient Name: ?? VINNY HERRERA ? MRN: [facility]:[id number] ? date: 2000 ?Sex: F ?? Assigned Patient Location: [facility] ?? Current Patient Location: ? Accession/Order Number: [id number] ?? Exam Date: 05/21/2025 ??16:12 ?Report Date: 05/21/2025 ??19:56 ? At the request of: ?? BRITT ??LAW ??DO ? Procedure: ??US OB BPP w non-stress ? Ultrasound biophysical profile ? INDICATION: Gestational diabetes ? COMPARISON: 05/07/2025 ? FINDINGS/IMPRESSION:: Fetus cephalic position. ?? 02/28 score biophysical ?? profile. ?? heart rate 139 beats per minutes. ??JAMAL 19.1 cm . ? Impression dictated by: Chevy Moreland M.D. ??05/21/2025 7:56 PM ? Dictation Location: RADIO-PC-29 ? Electronically authenticated by: [id number] ??Y ?? Date: 05/21/2025 ??19:56 ? Dictated By: ?Chevy Moreland M.D. ? Signed By: ?05/21/251958 ? DD/ 55 ? TD/TT: ? Transformation Analyst: Procedure Note Radiology, RadiologistMD - 05/21/2025 [place] [address] Ultrasound Report Signed Patient: VINNY HERRERA CMR#: [id number] : 2000Acct:[id number] Age/Sex: 24 / FADM Date: 05/21/25 Loc: US Attending Dr: Britt Foy D.O. Ordering Physician: Britt Foy D.O. Date of Service: 05/21/25 Procedure(s): US OB BPP w non-stress Accession Number(s): [id number] cc: Britt Foy D.O.; Ynes Mistry NP The [address] [address] Patient Name: VINNY HERRERA MRN: [id number] date: 2000 Sex: F Assigned Patient Location: [facility] Current Patient Location: Accession/Order Number: [id number] Exam Date: 05/21/2025 16:12 Report Date: 05/21/2025 19:56 At the request of: BRITT FOY DO Procedure: US OB BPP w non-stress Ultrasound biophysical profile INDICATION: Gestational diabetes COMPARISON: 05/07/2025 FINDINGS/IMPRESSION:: Fetus cephalic position. 8/8 score biophysical profile. heart rate 139 beats per minutes. JAMAL 19.1 cm . Impression dictated by: Chevy Moreland M.D. 05/21/2025 7:56 PM Dictation Location: [place] [address] Electronically authenticated by: [id number] Y Date: 9:56 Dictated By: Chevy Moreland M.D. Signed By:05/21/251958 DD/ 55 TD/TT: Transformation Analyst: Authorizing ProviderResult TypeResult StatusCorey Law DOCLINISYNC IMAGINGFinal Result documented in this encounter Visit Diagnoses Not on filedocumented in this encounter Additional Health Concerns Active ProblemsNoted DateDiagnosed DateOB Xexpqwwcj87/09/2025 documented as of this encounter
--- OUTSIDE RECORDS SUMMARY | 2025-05-24 09:14 | XMS_ITS | CCD ---
Author Organization [facility] CliniSyla Care Team Providers Care City Planning Aide Name Role Phone Jannette Peña I Primary Care Provider Ynes Rodriguez Primary Care Provider Feed LUX Ynes ANDRES Primary Care Provide r LAW, MUKUL R Admitting Unavailable LAW, MUKUL R Primary Care Unavailable LAW, MUKUL R Admitting Unavailable LAW, MUKUL R Primary Care Unavailable LAW, MUKUL R Admitting Unavailable LAW, MUKUL R Primary Care Unavailable BERTO LIVE Admitting Unavailabl e LAW, MUKUL R Primary Care Unavailable Fede CORE MAKER - RAILROAD INSPECTOR, Ynes Conner Primary Care Provide r Unavailable Primary Care Provider Unavailabl e LAW ., DR DE LA TORRE Attending Unavailable MISC, DR YAÑEZ Primary Care Unavailable TISHOMINGO, DR YELENA Henao Consulting Unavailable LAW ., [...] Unavailable MISC, DR YAÑEZ Primary Care Unavailable TISHOMINGO, DR YELENA Henao Consulting Unavailable LAW ., DR DE LA TORRE Attending Unavailable LWA ., DR DE LA TORRE Admitting Unavailable [...] mg oral tablet (1 source)HMG-CoA Reductase InhibitorStart: 85-16-9168qvfe 1 tablet by mouth once dailyatorvastatin (LIPITOR) 10 MG tablet Take 1 tablet by mouth daily 30 tablet 5 02/20/2024 Activecephalexin 500 mg oral capsule (4 sources)Cephalosporin AntibacterialStart: 04-03-2025 End: 45-77-6927ccyo 1 capsule by mouth in the morning, [...] mg oral tablet (8 sources)Histamine-1 Receptor AntagonistStart: 50-61-5815pjnh 1 tablet by mouth once dailycetirizine (ZYRTEC) 10 MG tablet Take 1 tablet by mouth daily 90 tablet 3 03/12/2021 ActiveStart: 11-61-6799rbju 1 tablet by mouth once daily cetirizine (ZYRTEC) 10 MG tablet Take 1 tablet by mouth daily 90 tablet 3 06/29/2020 Activedrospirenone 4 mg oral tablet (1 source)ProgestinStart: 55-71-5599kzzx 1 tablet by mouth once daily Drospirenone (SLYND) 4 MG TABS Indications: Irregular menses Take 1 tablet by mouth daily 84 tablet4 05/12/2021 Activedrospirenone 3 mg / ethinyl estradiol 0.03 mg oral tablet (9 sources)Progestin, EstrogenStart: 46-34-2295IRKPH 3-0.03 MG TABS Indications: Irregular menses TAKE 1 TABLET DAILY 84 tablet 0 05/03/2021 ActiveStart: 30-54-6015azcr 1 tablet by mouth once dailydrospirenone-ethinyl estradiol (CHANDANA 28) 3-0.03 MG TABS Indications: Irregular menses Take 1 tablet by mouth daily 3 packet 4 03/03/2020 ActiveEthinyl Estradiol / Ferrous fumarate / Norethindrone (6 sources)EstrogenStart: 10-97-9824NMBHG FE 24 1-20 MG-MCG(24) TABS Indications: DUB (dysfunctional uterine bleeding) TAKE 1 TABLET DAILY 84 tablet 1 08/27/2018 ActiveStart: 95-71-1919spil 1 tablet by mouth once dailyNorethin David-Eth Estrad-FE 1-20 MG-MCG(24) TABS Indications: Irregular menses Take 1 tablet by mouth daily 28 tablet 12 05/04/2018 ActiveStart: 19-22-3881lyku 1 tablet by mouth once dailyNorethin David-Eth Estrad-FE (JUNEL FE 24) 1-20 MG- MCG(24) TABS Indications: Irregular menses Take 1 tablet by mouth daily 84 tablet 3 07/21/2017 Activefexofenadine / Pseudoephedrine (2 sources)alpha-Adrenergic Agonist, Histamine-1 Receptor Antagonist Fexofenadine-Pseudoephedrine (JOSÉ MIGUEL-D PO) Take by mouth 0 Activefluconazole 150 mg oral tablet (1 source)Azole AntifungalStart: 66-24-1834yooi 1 tablet by mouth once daily as neededfluconazole (DIFLUCAN) 150 MG tablet Indications: Vaginal yeast infection Take 1 tablet by mouth daily as needed (yeast) 1 tablet 11 03/24/2020 Active fluticasone propionate 0.05 mg/actuat metered dose nasal spray (5 sources)Corticosteroidfluticasone (FLONASE) 50 MCG/ACT nasal spray 1 spray by Each Nare route daily 0 Active3 ml insulin glargine 100 unt/ml pen injector (13 sources)Insulin AnalogStart: 05-14-2025 End: 10-36-8727zwaetna glargine (Lantus SoloStar) 100 UNIT/ML pen Indications: Hyperglycemia Inject 15 Units underthe skin at bedtime FILL ACCORDING TO INSURANCE COVERAGE 3 mL 05/14/2025 06/13/2025 ActiveStart: 04-07-2025 End: 51-06-8628mtiyom 10 [IU] by subcutaneous injection at bedtimeinsulin glargine (Lantus SoloStar) 100 UNIT/ML pen Indications: Hyperglycemia Inject 10 Units underthe skin at bedtime FILL ACCORDING TO INSURANCE COVERAGE 3 mL 04/07/2025 05/14/2025 Discontinued (Reorder)loratadine 10 mg oral capsule (2 sources)take 1 capsule by mouth once dailyloratadine (CLARITIN) 10 MG capsule Take 10 mg by mouth daily 0 Cuzkmz56 hr metFORMIN hydrochloride 500 mg extended release oral tablet (20 sources)BiguanideStart: 02-11-2025 End: 42-22-9463bdnd 2 tablets by mouth every twenty-four hours at mealtime metFORMIN XR (Glucophage-XR) 500 MG 24 hr tablet Indications: Second trimester ([facility]) , 20 weeks gestation of ([facility]) Take 2 tablets (1,000 mg) by mouth in the evening. Take with meals 60 tablet 5 02/11/2025 08/10/2025 ActiveStart: 11-05-2024 End: 94-93-9063khjg 1 tablet by mouth every twenty-four hours in the morning metFORMIN XR (Glucophage-XR) 500 MG 24 hr tablet Take 1,000 mg by mouth in the morning and 1,000 mgin the evening. 11/05/2024 02/11/2025 Discontinued (Reorder) Start: 11-05-2024 End: 80-65-6214cehHCPFEG (GLUCOPHAGE-XR) 500 MG extended release tablet Indications: BMI 37.0-37.9, adult , Class 2 obesity with body mass index (BMI) of 37.0 to 37.9 in adult, unspecified obesity type, unspecifiedwhether serious comorbidity present TAKE 2 TABLETS BY MOUTH IN THE MORNING AND AT BEDTIME 120 tablet 5 11/05/2024 05/04/2025 ActiveStart: 04-26-2024 End: 57-65-2343fwvSQHIUO (GLUCOPHAGE-XR) 500 MG extended release tablet Indications: BMI 37.0-37.9, adult , Class 2 obesity with body mass index (BMI) of 37.0 to 37.9 in adult, unspecified obesity type, unspecifiedwhether serious comorbidity present Take 2 tablets by mouth in the morning and at bedtime 360 tablet 1 04/26/2024 10/23/2024 Activemetoclopramide 10 mg oral tablet (18 sources)Dopamine-2 Receptor AntagonistStart: 03-12-2025 End: 75-26-4206kjxgzjerfoxuip (Reglan) 10 MG tablet Indications: Gastroesophageal reflux [...] 50 mg oral capsule (4 sources)Nitrofuran AntibacterialStart: 63-85-9351lnid 1 capsule by mouth once dailynitrofurantoin (MACRODANTIN) 50 MG capsule Indications: Recurrent UTI Take 1 capsule by mouth nightly 30 capsule 0 03/03/2020 Activepantoprazole 40 mg delayed release oral tablet (20 sources)Proton Pump InhibitorStart: 02-26-2025 End: 95-30-6825bzuu 1 tablet by mouth before mealtimepantoprazole (Protonix) 40 MG EC tablet Indications: 23 weeks gestation of ([facility]) , Elevated blood sugar level , Gastroesophageal reflux disease without esophagitis Take 1 tablet (40 mg)by mouth in the morning. Take before meals. Do not crush, chew, or split. 30 tablet 11 02/26/2025 02/26/2026 Activephentermine hydrochloride 37.5 mg oral tablet (1 source)Sympathomimetic Amine AnorecticStart: 05-01-2024 End: 83-00-1438yqin 37-37.9 tablets by mouth once dailyphentermine (ADIPEX-P) [...] mg oral capsule (12 sources)Start: 04-02-2025 End: 66-59-8999uxeo 1 capsule by mouth once dailyiron polysaccharides (ProFe) 391.3 (180 Fe) MG capsule Indications: Dizziness Take 1 capsule (391.3mg) by mouth Daily 30 capsule 6 04/02/2025 05/02/2025 ActiveProbiotic Product (PROBIOTIC ADVANCED PO) (6 sources)Probiotic Product (PROBIOTIC ADVANCED PO) Take by mouth Active Probiotic Product (PROBIOTIC ADVANCED PO) Take by mouth 0 ActiveProgesterone (1 source)ProgesteroneStart: 17-40-6612Ltuiraaavcid [address] 200 mg vaginally nightly 10/16/2024 ActiveProgesterone 200 MG suppository (2 sources)Start: 11-14-2024 End: 83-49-6417Kjimdlorovsz 200 MG suppository Indications: History of miscarriage Insert 200 mg into the vagina at bedtime Insert suppository vaginally every night at bedtime until 12 weeks gestation 30 suppository 2 11/14/2024 12/14/2024 ActiveStart: 10-16-2024 End: 64-33-0603Mzhrztcdxwzr 200 MG suppository Indications: History of miscarriage Insert 200 mg into the vagina at bedtime Insert suppository vaginally every night at bedtime until 12 weeks gestation 30 suppository 3 10/16/2024 11/14/2024 Discontinued (Reorder)sertraline 25 mg oral tablet (20 sources)Serotonin Reuptake InhibitorStart: 68-14-2577fexg 1 tablet by mouth once dailysertraline (ZOLOFT) 25 MG tablet Take 1 tablet by mouth daily 30 tablet 5 11/12/2024 ActiveStart: 92-43-8561hksh 1 tablet by mouth once daily in the morningsertraline (Zoloft) 50 MG tablet Indications: Anxiety, generalized TAKE 1 TABLET BY MOUTH EVERY DAYIN THE MORNING 30 tablet 3 10/25/2024 Active Start: 91-12-3331gqig 1 tablet by mouth once daily in the morningsertraline (Zoloft) 50 MG tablet Indications: Anxiety, generalized (CMS/HCC) TAKE 1 TABLET BY MOUTHEVERY DAY IN THE MORNING 30 tablet 3 06/27/2024 ActiveStart: 10-17-2023 take 1 tablet by mouth once dailysertraline (ZOLOFT) 50 MG tablet Indications: Anxiety Take 1 tablet by mouth daily 30 tablet 10/17/2023 ActiveStart: 43-48-9953otms 1 tablet by mouth once dailysertraline (ZOLOFT) 25 MG tablet Indications: Anxiety Take 1 tablet by mouth daily 90 tablet 3 03/29/2022 Active Start: 38-73-6482xmof 1 tablet by mouth once dailysertraline (ZOLOFT) 25 MG tablet Take 1 tablet by mouth daily 90 tablet 3 03/12/2021 ActiveStart: 74-35-7203grak 1 tablet by mouth once dailysertraline (ZOLOFT) 50 MG tablet Take 1 tablet by mouth daily 30 tablet 2 08/17/2020 Activesulfamethoxazole 800 mg / trimethoprim 160 mg oral tablet (2 sources)Dihydrofolate Reductase Inhibitor Antibacterial, Sulfonamide AntimicrobialStart: 16-01-0097hrie 1 tablet by mouth every twelve hours sulfamethoxazole-trimethoprim (BACTRIM DS;SEPTRA DS) 800-160 MG per tablet TAKE 1 TABLET BY MOUTH EVERY 12 HOURS FOR 7 DAYS 0 02/24/2020 ActiveTirzepatide (MOUNJARO) 2.5 MG/0.5ML SOPN SC injection (1 source)Start: 48-42-7098Skrtuspbekg (MOUNJARO) 2.5 MG/0.5ML SOPN SC injection Indications: Mixed hyperlipidemia , BMI 37.0-37.9, adult , Class 2 obesity with body mass index (BMI) of 37.0 to 37.9 in adult, unspecified obesity type, unspecified whether serious comorbidity present Inject 0.5 mLs into the skin once a week 4 mL 1 05/01/2024 ActivetraZODone hydrochloride 50 mg oral tablet (1 source)Serotonin Reuptake InhibitorStart: 21-26-9904duqb 0.5 tablet by mouth once dailytraZODone (DESYREL) 50 MG tablet Take 0.5 tablets by mouth nightly 30 tablet 2 05/01/2020 Active Completed/Discontinued Medications MedicationDrug Class(es)DatesSig (Normalized)Sig (Original)norethindrone 0.35 mg oral tablet (2 sources)Start: 03-10-2023 End: 45-85-1493ciyj 1 tablet by mouth in the morningnorethindrone (Micronor) 0.35 MG tablet Indications: General counseling and advice on contraceptive management Take 1 tablet (0.35 mg) by mouth in the morning. 28 tablet 11 03/10/2023 07/15/2024 Discontinued (Therapy completed)omeprazole 20 mg delayed release oral capsule (8 sources)Proton Pump InhibitorStart: 01-15-2025 End: 55-60-2340bwzr 1 capsule by mouth before mealtimeomeprazole (PriLOSEC) [address] capsule Indications: Gastroesophageal Reflux Disease , Heartburn Take 1 capsule (20 mg) by mouth in the morning. Take before meals. Do not crush or chew. 30 capsule 3 01/15/2025 02/26/2025 Discontinued (Formulary change) Problems Active Problems Problem ClassificationProblemDateDocumented DateEpisodic/Chronic Administrative/social admission (4 sources)Dietary counseling and surveillance; Translations: [DIETARY COUNSELING AND SURVEILLANCE]Onset: 25-20-5585SmdcokpiIdimxya disorders (20 sources)Anxiety; Translations: [Anxiety disorder, unspecified]Onset: 388968-85-9975DcyhqgjFuulxtpcvf associated with dizziness or vertigo (2 sources)Dizziness; Translations: [Dizziness and giddiness]02-77-8219Hnbopvie Deficiency and other anemia (2 sources)Anemia; Translations: [Anemia, unspecified]13-05-0264WuydqlocEkhlosxt mellitus without complication (20 sources)Other abnormal glucose; Translations: [Abnormal glucose level]Onset: 15-23-0078FfemllpiTmondpwx or abnormal glucose tolerance complicating ; childbirth; or the puerperium (12 sources)Gestational diabetes mellitus in , unspecified control; Translations: [Gestational diabetes mellitus complicating ]Onset: 694465-17-8135AkyoyeabGgyevikvi of lipid metabolism (7 sources)Mixed hyperlipidemia; Translations: [Mixed hyperlipidemia]Onset: 097064-84-8624QisbeemImrjjodxcq disorders (6 sources)Gastroesophageal reflux disease; Translations: [Gastro-esophageal reflux disease without esophagitis]Onset: hronic Genitourinary symptoms and ill-defined conditions (2 sources)Urinary symptoms ; Translations: [Unspecified symptoms and signs involving the genitourinary system]67-30-9991MbplprzbUopcssdkry during ; abruptio placenta; placenta previa (1 source)Other antepartum hemorrhage, first trimester; Translations: [Other antepartum hemorrhage, first trimester]Onset: 57-30-3827RansmglrXvxwirxfyjjcf and screening for infectious disease (4 sources)Encounter for screening for infections with a predominantly sexual mode of transmission; Translations: [Encounter for screening for human papillomavirus (HPV)]Onset: 360308-67-7563AvroujmeYmjzkhhkjdeuk mental health disorders (20 sources)Insomnia disorder related to another mental disorder; Translations: [Insomnia due to other mental disorder]Onset: 05-02-2020 Resolved: 608667-64-8244NtkhhmoQaywp complications of (4 sources)Maternal care for excessive growth, third trimester, not applicable or unspecified; Translations: [MAT CARE EXCSS FTL GRTH 3RD TRI UNS] Onset: 83-21-0305VkhvmucvYagpy complications of (3 sources)Maternal care for excessive growth, unspecified trimester, not applicable or unspecified; Translations: [MAT CARE EXCSS FTL GRTH UNS TRI UNS] Onset: 40-32-2403QzezhautJhrto complications of (2 sources)Gastroesophageal reflux disease in ; Translations: [Diseases of the digestive system complicating , unspecified trimester] 12-52-7666EfgjyutfYnktt female genital disorders (20 sources)Pain in female genitalia on intercourse; Translations: [Unspecified dyspareunia]Onset: 11-30-2020 Resolved: 451167-53-7874KuvddrgAyqpa female genital disorders (2 sources)Vaginal discharge; Translations: [Other specified noninflammatory disorders of vagina]45-45-7941UjqakqiqWdxuv injuries and conditions due to external causes (4 sources)Encounter for examination and observation following other accident; Translations: [ENC EXAM AND OBSERVATION FOLLOW OTH ACC]Onset: 06-29-4363Zmupjrix Other liver diseases (3 sources)Steatosis of liver; Translations: [Fatty (change of) liver, not elsewhere classified]Onset: 109790-07-5876XsdpjcwZanyh nutritional; endocrine; and metabolic disorders (1 source)Body mass index 30+ - obesity; Translations: [Body mass index (BMI) 37.0-37.9, adult]Onset: 205489-63-6462FzrcyfoXxzps nutritional; endocrine; and metabolic disorders (3 sources)Obesity; Translations: [Class 2 obesity with body mass index (BMI) of 37.0 to 37.9 in adult]Onset: 764141-19-7670LeabifsMqitd and delivery including normal (20 sources)Encounter for supervision of normal , unspecified, unspecified trimester; Translations: [ state, incidental]Onset: 39-08-2764EtlxtaiaHwzig screening for suspected conditions (not mental disorders or infectious disease) (20 sources)Encounter for other screening follow-up; Translations: [Encounter for screening, unspecified]Onset: 97-21-6191AqagoegoHkznr upper respiratory disease (8 sources)Seasonal allergic rhinitis; Translations: [Other seasonal allergic rhinitis]Onset: 909337-12-4891GvlpgpqZgytwmkyujwmhl and other problems of amniotic cavity (4 sources)Subchorionic hematoma; Translations: [Other specified disorders of amniotic fluid and membranes, first trimester, not applicable or unspecified] Onset: 547584-59-7626BpgsqtyvTjczjwhn codes; unclassified (1 source)34 weeks gestation of ; Translations: [34 WEEKS GESTATION OF ]Onset: 89-33-5299DodyjumaJgysnlim codes; unclassified (1 source)33 weeks gestation of ; Translations: [33 WEEKS GESTATION OF ]Onset: 14-07-9234QqlravetEtyejtny codes; unclassified (1 source)Gestation period, 8 weeks; Translations: [8 weeks gestation of ]29-40-0702EsdqiqlrIhdnaldi codes; unclassified (3 sources)H/O: miscarriage; Translations: [Personal history of other complications of , childbirth and the puerperium]63-81-8139Yokhkyux Residual codes; unclassified (2 sources)Gestation period, 12 weeks; Translations: [12 weeks gestation of ]21-69-8017QsspvorxRznqsgrw codes; unclassified (2 sources)Gestation period, 17 weeks; Translations: [17 weeks gestation of ]37-97-4043BpdcttsqQltcuhdt codes; unclassified (2 sources)Gestation period, 20 weeks; Translations: [20 weeks gestation of ]01-30-6178YpgaxeqbOiedmdhb codes; unclassified (20 sources)Gestation period, 23 weeks; Translations: [23 weeks gestation of ]Onset: 697158-59-9825WodypfvmLiitidza codes; unclassified (2 sources)Gestation period, 25 weeks; Translations: [25 weeks gestation of ]93-37-4264HkitqwfvYuovtmvn codes; unclassified (2 sources)Gestation period, 28 weeks; Translations: [28 weeks gestation of ]37-14-6263LonrjevvJvuiipzj codes; unclassified (2 sources)Gestation period, 30 weeks; Translations: [30 weeks gestation of ]70-08-3409XnywugljThevmjdy codes; unclassified (2 sources)Gestation period, 32 weeks; Translations: [32 weeks gestation of ]66-51-0241ZdfuiyhnNwxezyhf codes; unclassified (2 sources)Gestation period, 34 weeks; Translations: [34 weeks gestation of ]34-53-9582HeinyydiUhgswttaqryo (1 source)Cancer cervix screening status; Translations: [Screening for cervical cancer]Unclassified (3 sources)Patient encounter status; Translations: [Encounter for annual routine gynecological examination]Unclassified (20 sources)OB RemindersOnset: 447365-73-6784 Past or Other Problems Problem ClassificationProblemDateDocumented DateEpisodic/ChronicCardiac dysrhythmias (2 sources)Palpitations; Translations: [Palpitations]Onset: 13-51-7852Sowztiyq Deficiency and other anemia (3 sources)Iron deficiency anemia; Translations: [Iron deficiency anemia, unspecified]Onset: 065127-56-7123XssabowpEzjdtywwfe and other anemia (1 source)Iron deficiency anemia, unspecified; Translations: [Iron deficiency anemia, unspecified]Onset: 58-91-7152HqkcyrsaTictrpd and fatigue (20 sources)Fatigue; Translations: [Other fatigue]Onset: EpisodicMenstrual disorders (20 sources)Amenorrhea; Translations: [Amenorrhea, unspecified]Onset: 06-23-2022 Resolved: 12-73-4350YtlgfpkJhvtk disorders of stomach and duodenum (20 sources)Indigestion; Translations: [Functional dyspepsia]Onset: 01-13-2023 41-95-8639SbmjsrzvDhrvf female genital disorders (4 sources)Other specified noninflammatory disorders of vagina; Translations: [OTH SPEC NONINFLAMMATORY D/O VAGINA]Onset: 54-25-6223DzyqwxoeDsiub gastrointestinal disorders (20 sources)Heartburn; Translations: [Heartburn]Onset: EpisodicOther liver diseases (4 sources)Elevated liver enzymes level; Translations: [Abnormal levels of other serum enzymes]Onset: 945542-64-0397MyswvzcbHgytl liver diseases (1 source)Abnormal levels of other serum enzymes; Translations: [Abnormal levels of other serum enzymes]Onset: 18-22-8142HobzgyqeSaume skin disorders (3 sources)Acne; Translations: [Acne, unspecified]Onset: 10-17-2023 Resolved: 778109-74-1355FbhuyfqgXdffn upper respiratory infections (2 sources)Sore throat symptom; Translations: [Acute pharyngitis, unspecified] Onset: 09-10-2024 Resolved: 643591-94-8050UcxmjmlyGvbctdnc codes; unclassified (1 source)Family history of other diseases of the digestive system; Translations: [Family history of other diseases of the digestive system]Onset: 62-48-5460VsqjgtchHjthkef tract infections (20 sources)Recurrent urinary tract infection; Translations: [Urinary tract infection, site not specified]Onset: 11-30-2020 Resolved: 30-73-3082Qqcbfivn Results Test NameValueInterpretationReference RangeFacilityUS OB BPP W NON-STRESS on 32-16-7274Kto [place] [address] Ultrasound Report Signed Patient: VINNY DOWNEY MR#: [id number] : 2000 Acct:[id number] Age/Sex: 24 / F ADM Date: 05/21/25 Loc: US Attending Dr: Mukul Foy D.O. Ordering Physician: Mukul Foy D.O. Date of Service: 05/21/25 Procedure(s): US OB BPP w non-stress Accession Number(s): [id number] cc: Mukul Foy D.O.; Ynes Rodriguez NP [place] [address] Patient Name: VINNY DOWNEY MRN: [id number] date: 2000 Sex: F Assigned Patient Location: [facility] Current Patient Location: Accession/Order Number: [id number] Exam Date: 05/21/2025 16:12 Report Date: 05/21/2025 19:56 At the request of: MUKUL FOY DO Procedure: US OB BPP w non-stress Ultrasound biophysical profile INDICATION: Gestational diabetes COMPARISON: 05/07/2025 FINDINGS/IMPRESSION:: Fetus cephalic position. 8/8 score biophysical profile. heart rate 139 beats per minutes. JAMAL 19.1 cm . Impression dictated by: Chevy Moreland M.D. 05/21/2025 7:56 PM Dictation Location: [place] [address] Electronically authenticated by: [id number] Y Date: 05/21/2025 19:56 Dictated By: Chevy Moreland M.D. Signed By: 05/21/251958 DD/ 55 TD/TT: Fitness Teacher:TBHRadiology, Radiologist, MD - 05/21/2025 [place] [address] Ultrasound Report Signed Patient: VINNY DOWNEY MR#: [id number] : 2000 Acct:[id number] Age/Sex: 24 / F ADM Date: 05/21/25 Loc: US Attending Dr: Mukul Foy D.O. Ordering Physician: Mukul Foy D.O. Date of Service: 05/21/25 Procedure(s): US OB BPP w non-stress Accession Number(s): [id number] cc: Mukul Foy D.O.; Ynes Rodriguez NP [place] [address] Patient Name: VINNY DOWNEY MRN: [facility]:[id number] date: 2000 Sex: F Assigned Patient Location: [facility] Current Patient Location: Accession/Order Number: [id number] Exam Date: 05/21/2025 16:12 Report Date: 05/21/2025 19:56 At the request of: MUKUL FOY DO Procedure: US OB BPP w non-stress Ultrasound biophysical profile INDICATION: Gestational diabetes COMPARISON: 05/07/2025 FINDINGS/IMPRESSION:: Fetus cephalic position. 8/8 score biophysical profile. heart rate 139 beats per minutes. JAMAL 19.1 cm . Impression dictated by: Chevy Moreland M.D. 05/21/2025 7:56 PM Dictation Location: [place] [address] Electronically authenticated by: [id number] Y Date: 05/21/2025 19:56 Dictated By: Chevy Moreland M.D. Signed By: 05/21/251958 DD/ 55 TD/TT: Fitness Teacher: DIANE HealthcareRadiology Study observation (narrative)NOMS HealthcareUS OB BPP W NON-STRESSOrdered By: Radiologist Radiology on 07-82-3803[facility] Work Phone: Urinalysis macro (dipstick) panel (U)on 05-14-2025 Bilirubin, UANegativeNegative - 4(70) +++ mg/dLNOMS HealthcareBlood, UANegative Negative - 50 Yunior/mcLNOMS HealthcareClarity, UAClearNOMS HealthcareColor, UA YellowNOMS HealthcareGlucose, UANegativeNegative - 2000(110) ++++ mg/dLNOMS HealthcareInterpretation and review of laboratory resultsNormalNOUT Healthcare Ketones, UANegativeNegative - 160(16) ++++ mg/dLNOMS HealthcareLeukocytes, UA NegativeNegative - 500+++ Trip/mcLNOUT HealthcareNitrite, UANegativeNegative - PositiveNOMS HealthcarepH, UA6.55 - 9NOMS HealthcareProtein, UANegativeNegative - 1999(20) ++++ mg/dLNOMS HealthcareSpec Grav, UA1.0101 - 1.03N[facility] Urobilinogen, UA2.00.2 - 12 mg/dLNOMS HealthcareNOMS HealthcareUS OB BPP W NON-STRESSon 47-21-5260[place] [address] Ultrasound Report Signed Patient: VINNY DOWNEY MR#: [id number] : 2000 Acct:[id number] Age/Sex: 24 / F ADM Date: 04/30/25 Loc: US Attending Dr: Mukul Foy D.O. Ordering Physician: Mukul Foy D.O. Date of Service: 04/30/25 Procedure(s): US OB BPP w non-stress Accession Number(s): [id number] cc: Mukul Foy D.O.; Ynes Rodriguez [place] [address] Patient Name: VINNY DOWNEY MRN: [facility]:[id number] date: 2000 Sex: F Assigned Patient Location: [facility] Current Patient Location: Accession/Order Number: [id number] Exam Date: 04/30/2025 15:57 Report Date: 04/30/2025 22:59 At the request of: MUKUL FOY DO Procedure: US OB BPP w non-stress Ultrasound biophysical profile INDICATION: Gestational diabetes COMPARISON: 04/05/2025 FINDINGS/IMPRESSION:: Fetus cephalic position. 8/8 score biophysical profile. heart rate 145 beats per minutes. JAMAL 12.7 cm. Impression dictated by: Chevy Moreland M.D. 04/30/2025 10:59 PM Dictation Location: [employer] Electronically authenticated by: [id number] Y Date: 04/30/2025 22:59 Dictated By: Chevy Moreland M.D. Signed By: 04/30/252301 DD/ 58 TD/TT: Fitness Teacher:MILYHRadiology, Radiologist, - 04/30/2025 [place] [address] Ultrasound Report Signed Patient: VINNY DOWNEY MR#: [id number] : 2000 Acct:[id number] Age/Sex: 24 / F ADM Date: 04/30/25 Loc: US Attending Dr: Mukul Foy D.O. Ordering Physician: Mukul Foy D.O. Date of Service: 04/30/25 Procedure(s): US OB BPP w non-stress Accession Number(s): [id number] cc: Mukul Foy D.O.; Ynes Rodriguez DENTAL CHAIR ASSEMBLER The [place] [address] Patient Name: VINNY DOWNEY MRN: [facility]:[id number] date: 2000 Sex: F Assigned Patient Location: [facility] Current Patient Location: Accession/Order Number: [id number] Exam Date: 04/30/2025 15:57 Report Date: 04/30/2025 22:59 At the request of: MUKUL FOY DO Procedure: US OB BPP w non-stress Ultrasound biophysical profile INDICATION: Gestational diabetes COMPARISON: 04/05/2025 FINDINGS/IMPRESSION:: Fetus cephalic position. 02/28 score biophysical profile. heart rate 145 beats per minutes. JAMAL 12.7 cm. Impression dictated by: Chevy Moreland M.D. 04/30/2025 10:59 PM Dictation Location: [employer] Electronically authenticated by: [id number] Y Date: 04/30/2025 22:59 Dictated By: Chevy Moreland M.D. Signed By: 04/30/25 6577 DD/ 816 TD/TT: Fitness Teacher: DIANE HealthcareRadiology Study observation (narrative)DIANE HealthcareUS OB BPP W NON-STRESSOrdered By: Radiologist Radiology on 47-45-8158[facility] Work Phone: Urinalysis macro (dipstick) panel (U)on 04-30-2025 Bilirubin, UANegativeNegative - 4(70) +++ mg/dLNOMS HealthcareBlood, UANegative Negative - 50 Yunior/mcLNOMS HealthcareClarity, UAClearNOMS HealthcareColor, UA YellowNOMS HealthcareGlucose, UANegativeNegative - 2000(110) ++++ mg/dLNOMS HealthcareInterpretation and review of laboratory resultsAbnormalNOMS Healthcare Ketones, UANegativeNegative - 160(16) ++++ mg/dLNOMS HealthcareLeukocytes, UA1+ Negative - 500+++ Trip/mcLNOMS HealthcareNitrite, UANegativeNegative - Positive NOMS HealthcarepH, UA6.55 - 9NOMS HealthcareProtein, UANegativeNegative - 2000(20) ++++ mg/dLNOMS HealthcareSpec Grav, UA1.011 - 1.03NOMS Healthcare Urobilinogen, UA2.00.2 - 12 mg/dLNOMS HealthcareNOMS HealthcareUrinalysis macro (dipstick) panel (U)on 42-55-7195Jxaimnaxs, UANegativeNegative - 4(70) +++ mg/dL NOMS HealthcareBlood, UANegativeNegative - 50 Yunior/mcLNOMS HealthcareClarity, UA ClearNOMS HealthcareColor, UAYellowNOMS HealthcareGlucose, UANegativeNegative - 2000(110) ++++ mg/dLNOMS HealthcareInterpretation and review of laboratory resultsNormalNOMS HealthcareKetones, UANegativeNegative - 160(16) ++++ mg/dLNOMS HealthcareLeukocytes, UANegativeNegative - 500+++ Trip/mcLNOMS HealthcareNitrite, UANegativeNegative - PositiveNOMS HealthcarepH, UA6.55 - 9NOMS Healthcare Protein, UANegativeNegative - 1999(20) ++++ mg/dLNOUT HealthcareSpec Grav, UA 1.0051 - 1.03NOUT HealthcareUrobilinogen, UA0.20.2 - 12 mg/dLNOHawthorn Children's [facility] HealthcareALL CBC WITH AUTO DIFFon 17-03-8508ISRPFKFOH ABSOLUTE KVJX6ZDPS HealthcareBasophils/100 WBC (Bld)0.2 %0.2 - 2.0 %NOMWestern Missouri Mental Health CenterEosinophils/100 WBC (Bld)1.1 %0.9 - 7.0 %[facility] CenterErythrocyte distribution width (RBC) [Ratio]12.8 %11.0 - 15.0 %NOMWestern Missouri Mental Health CenterHematocrit (Bld) [Volume fraction]30.7 %Low36.0 - 48.0 %[facility] CenterHemoglobin (Bld) [Mass/Vol]10.3 g/dLLow12.0 - 16.0 g/dLMissouri Delta Medical CenterIMMATURE GRANULOCYTES ABS AUTO0.04HighMissouri Delta Medical Center Immature granulocytes/100 WBC (Bld)0.4 %0.0 - 0.5 %[facility] CenterInterpretation and review of laboratory resultsAbnormalNOSaint John's Saint Francis HospitalLYMPHOCYTES ABSOLUTE AUTO1.9NOMS [facility] County HospitalLymphocytes/100 WBC (Bld)17.1 %Low20.5 - 60.0 %The Rehabilitation InstituteH (RBC) [Entitic mass]29.7 pg26.7 - 34.0 pgThe Rehabilitation InstituteHC (RBC) [Mass/Vol]33.6 g/dL29.9 - 35.2 g/dLThe Rehabilitation InstituteV (RBC) [Entitic vol]88.5 fL 81.0 - 99.0 fLMissouri Delta Medical CenterMONOCYTES ABSOLUTE AUTO0.7NOMS [facility] Monocytes/100 WBC (Bld)6.5 %1.7 - 12.0 %[facility] CenterNEUTROPHILS ABSOLUTE AUTO 8.2HighNOSaint John's Saint Francis HospitalNeutrophils/100 WBC (Bld)74.7 %43.0 - 75.0 %[facility] CenterPlatelet mean volume (Bld) [Entitic vol]8.7 fLLow9.5 - 13.5 fLMissouri Delta Medical CenterTB EO #0.1NOMS Wood County HospitalTBH [id number] HealthcareTB RBC3.47LowNOMS HealthcareTBH CVR00WROT HealthcareCLINISYNCNOMS HealthcareUS OB GROWTHon 26-64-4319Lry [address] [address] Ultrasound Report Signed Patient: VINNY DOWNEY MR#: [id number] : 2000 Acct:[id number] Age/Sex: 24 / F ADM Date: 04/05/25 Loc: US Attending Dr: Regina Barton Ordering Physician: Regina Barton Date of Service: 04/05/25 Procedure(s): US OB growth Accession Number(s): [id number] cc: Regina Barton; Physician,Non-Staff Khadar The [address] [address] Patient Name: VINNY DOWNEY MRN: [id number] date: 2000 Sex: F Assigned Patient Location: US Current Patient Location: LAB Accession/Order Number: [id number] Exam Date: 04/05/2025 10:00 Report Date: 04/05/2025 [...] weeks 2 days. Impression dictated by: Daryn Pearza M.D. 04/05/2025 12:08 PM Dictation Location: [facility]ITALDrug Response Dx Electronically authenticated by: [id number] Y Date: 04/05/2025 12:08 Dictated By: Daryn Peraza D.O. Signed By: 04/05/25 1211 DD/ 1208 TD/TT: Fitness Teacher:JAMILAHadiologvicki, Radiologist, - 04/05/[address] [place] [address] Ultrasound Report Signed Patient: VINNY DOWNEY MR#: [id number] : 2000 Acct:[id number] Age/Sex: 24 / F ADM Date: 04/05/25 Loc: US Attending Dr: Regina Barton Ordering Physician: Regina Barton Date of Service: 04/05/25 Procedure(s): US OB growth Accession Number(s): [id number] cc: Regina Barton; Physician,Non-Staff M.[place] [address] Patient Name: VINNY DOWNEY MRN: [id number] date: 2000 Sex: F Assigned Patient Location: US Current Patient Location: LAB Accession/Order Number: [id number] Exam Date: 04/05/2025 10:00 Report Date: 04/05/2025 [...] Peraza M.D. 04/05/2025 12:08 PM Dictation Location: [employer] Electronically authenticated by: [id number] Y Date: 04/05/2025 12:08 Dictated By: Daryn Peraza D.O. Signed By: 04/05/25 1211 DD/ 1208 TD/TT: Fitness Teacher: DIANE HealthcareRadiology Study observation (narrative)DIANE Armas OB GROWTHOrdered By: Radiologist Radiology on 00-14-6231[facility] Work Phone: Urinalysis macro (dipstick) panel (U)on 04-03-2025 Bilirubin, UANegativeNegative - 4(70) +++ mg/dLNOMS HealthcareBlood, UANegative Negative - 50 Yunior/mcLNOMS HealthcareClarity, UAClearNOMS HealthcareColor, UA YellowNOMS HealthcareGlucose, UANegativeNegative - 1999(110) ++++ mg/dLNOMS HealthcareInterpretation and review of laboratory resultsAbnormalNOUT Healthcare Ketones, UANegativeNegative - 160(16) ++++ mg/dLNOMS HealthcareLeukocytes, UA PositiveNegative - 500+++ Trip/mcLNOMS HealthcareNitrite, UANegativeNegative - PositiveNOMS HealthcarepH, UA6.55 - 9NOMS HealthcareProtein, UANegativeNegative - 1999(20) ++++ mg/dLNOMS HealthcareSpec Grav, UA1.011 - 1.03NOMS Healthcare Urobilinogen, UA1.00.2 - 12 mg/dLNOMS HealthcareNOMS HealthcareUrinalysis macro (dipstick) panel (U)on 53-70-2258Zxajmvkkh, UANegativeNegative - 4(70) +++ mg/dL NOMS HealthcareBlood, UANegativeNegative - 50 Yunior/mcLNOMS HealthcareClarity, UA ClearNOMS HealthcareColor, UAYellowNOMS HealthcareGlucose, UANegativeNegative - 1999(110) ++++ mg/dLNOMS HealthcareInterpretation and review of laboratory resultsNormalNOUT HealthcareKetones, UANegativeNegative - 160(16) ++++ mg/dLNOMS HealthcareLeukocytes, UANegativeNegative - 500+++ Trip/mcLNOMS HealthcareNitrite, UANegativeNegative - PositiveNOMS HealthcarepH, UA6.55 - 9NOMS Healthcare Protein, UANegativeNegative - 2000(20) ++++ mg/dLNOMS HealthcareSpec Grav, UA 1.011 - 1.03NOMS HealthcareUrobilinogen, UA1.00.2 - 12 mg/dLNOMS HealthcareNOMS HealthcareUrinalysis macro (dipstick) panel (U)on 68-00-9439Gvtebclhv, UA NegativeNegative - 4(70) +++ mg/dLNOMS HealthcareBlood, UANegativeNegative - 50 Yunior/mcLNOMS HealthcareClarity, UAClearNOMS HealthcareColor, UAYellowNOUT HealthcareGlucose, UANegativeNegative - 2000(110) ++++ mg/dLNOUT Healthcare Interpretation and review of laboratory resultsNormalNOUT HealthcareKetones, UA NegativeNegative - 160(16) ++++ mg/dLMissouri Delta Medical CenterLeukocytes, UANegative Negative - 500+++ Trip/mcLNOUT HealthcareNitrite, UANegativeNegative - Positive NOMS HealthcarepH, UA65 - 9NOUT HealthcareProtein, UANegativeNegative - 2000(20) ++++ mg/dLNOUT HealthcareSpec Grav, UA1.011 - 1.03NOUT HealthcareUrobilinogen, UA0.20.2 - 12 mg/dLNOSaint John's Saint Francis HospitalNOUT HealthcareUS OB 14+ WEEKS ANATOMY SCANon 33-10-3065ZO OB 14+ WEEKS ANATOMY SCANFINDINGS: A single, [...] Delivery: 06/23/25 Gestational Age as of 01/15/2025: 85s8tBinfkxqnmi macro (dipstick) panel (U)on 03-86-4134Dzinkfsco, UANegativeNegative - 4(70) +++ mg/dLNOMS HealthcareBlood, UANegativeNegative - 50 Yunior/mcLNOMS HealthcareClarity, UAClearNOMS Healthcare Color, UAYellowNOMS HealthcareGlucose, UANegativeNegative - 2000(110) ++++ mg/dL NOMS HealthcareInterpretation and review of laboratory resultsNormalNOMS HealthcareKetones, UANegativeNegative - 160(16) ++++ mg/dLNOUT Healthcare Leukocytes, UANegativeNegative - 500+++ Trip/mcLNOMS HealthcareNitrite, UA NegativeNegative - PositiveNOMS HealthcarepH, UA6.55 - 9NOMS HealthcareProtein, UANegativeNegative - 2000(20) ++++ mg/dLNOMS HealthcareSpec Grav, UA1.0251 - 1.03NOMS HealthcareUrobilinogen, UA1.00.2 - 12 mg/dLNOUT HealthcareNOMS HealthcareRECURRENT VAGINITIS (HTRX)on 78-51-5772TLQKOHWHN CMONBNQ0MSWA HealthcareATOPOBIUM VAGINAENot detectedNOMS HealthcareBVAB 2,3 (BACTERIAL VAGINOSIS ASSOCIATED BACTERIA 2, 3); MOBILUNCUS ILX0JRJM HealthcareBVAB 2,3 (BACTERIAL VAGINOSIS ASSOCIATED BACTERIA 2, 3); MOBILUNCUS SPPNot detectedNOMS HealthcareCANDIDA ALBICANS, PARAPSILOSIS, QQFEUOHOQZ3FLCW HealthcareCANDIDA ALBICANS, PARAPSILOSIS, TROPICALISNot detectedNOMS HealthcareCANDIDA GLABRATA0 NOMS HealthcareCANDIDA GLABRATANot detectedNOMS HealthcareCANDIDA PWIWZM6HOLD HealthcareCANDIDA KRUSEINot detectedNOMS HealthcareCHLAMYDIA ZPCGMAIHEHA4NIGI HealthcareCHLAMYDIA TRACHOMATISNot detectedNOMS HealthcareGARDNERELLA VAGINALIS0 NOMS HealthcareGARDNERELLA VAGINALISNot detectedNOMS HealthcareMEGASPHAERA (TYPES 1, 2)0NOMS HealthcareMEGASPHAERA (TYPES 1, 2)Not detectedNOMS Healthcare MYCOPLASMA BYKPWIGCVB5ASZP HealthcareMYCOPLASMA GENITALIUMNot detectedNOMS HealthcareNEISSERIA XSWMFYHGKHR8QYFB HealthcareNEISSERIA GONORRHOEAENot detected NOMS HealthcareTRICHOMONAS TYHIKEFYH0IAOQ HealthcareTRICHOMONAS VAGINALISNot detectedNOMS HealthcareNOMS HealthcareCBCon 84-80-3295Fpuzeweqqqh distribution width (RBC) [Ratio]12.6 %11.8 - 14.4 %Augusta HealthHematocrit (Bld) [Volume fraction]35.4 %Low36.3 - 47.1 %[facility] HealthHemoglobin (Bld) [Mass/Vol]11.7 g/dLLow11.9 - 15.1 g/dLBon [facility] HospitalInterpretation and review of laboratory resultsAbnormalBon [facility] HospitalH (RBC) [Entitic mass]30 pg25.2 - 33.5 pgReston Hospital CenterHC (RBC) [Mass/Vol]33.1 g/dL 28.4 - 34.8 g/dLBon [facility] HospitalV (RBC) [Entitic vol]90.8 fL82.6 - 102.9 fLAugusta HealthNucleated RBC/100 WBC (Bld) [Ratio]0 %0.0 per 100 WBCAugusta HealthPlatelet mean volume (Bld) [Entitic vol]8.7 fL8.1 - 13.5 fLAugusta HealthPlatelets (Bld) [#/Vol]316 10*3/uLBon [facility] HospitalRBC (Bld) [#/Vol]3.9 10*6/uLLow3.95 - 5.11 m/Community Health SystemsWBC other (Bld) [#/Vol]10.2Bon [facility] and SchoolErythrocyte distribution width (RBC) [Ratio]12.6 %Efqsep45.8-14.4W[facility]ner Medical CenterComment on above:Performed By: #### GLUSC, CBC #### [facility] [address] [place] [address] [place] [address] Garment Inspector: Yelena Greco MDHematocrit (Bld) [Volume fraction]35.4 %Low 36.3-47.1MercGreenwich HospitalComment on above:Performed By: #### GLUSC, CBC #### [facility] [address] [place] [address] Garment Inspector: Yelena Greco MDHemoglobin (Bld) [Mass/Vol]11.7 g/dLLow11.9-15.1 [facility] CenterComment on above:Performed By: #### GLUSILVINO, CBC #### [address] [place], [place] [id number] Garment Inspector: YULY ArandaCH (RBC) [Entitic mass]30.0 ezAdfhzd99.2-33.5 [facility] HospitalComment on above:Performed By: #### GLUSILVINO, CBC #### [address] [place] [address] Garment Inspector: TY ArandaC (RBC) [Mass/Vol]33.1 g/sVPjjiai05.4-34.8[facility] Medical CenterComment on above:Performed By: #### YESSICA, CBC #### [address] [place], [facility]83 Garment Inspector: YULY ArandaCV (RBC) [Entitic vol]90.8 pUPewknf68.6-102.9 [facility] CenterComment on above:Performed By: #### GLUSILVINO, CBC #### [address] [place], [place] [address] Garment Inspector: Yelena Greco MDNRBC Automated0.0 per 100 WBCNormal0.0[facility] Medical CenterComment on above:Performed By: #### GLUSC, CBC #### [address] [place] [address] Garment Inspector: Sobeida Aranda mean volume (Bld) [Entitic vol]8.7 fL Normal8.1-13.5[facility] Medical CenterComment on above:Performed By: #### GLUSILVINO, CBC #### [address] [place] [address] Garment Inspector: Richie ArandaRiverside Health System) [#/Vol]316 10*3/fJDfiuxz447-101 [facility] CenterComment on above:Performed By: #### GLUSC, CBC #### [address] [place], [place] [address] Garment Inspector: BILL Aranda ([facility]) [#/Vol]3.90 10*6/uLLow3.95-5.11[facility] Medical CenterComment on above:Performed By: #### GLUSC, CBC #### [address] [place], [place] [address]83 Garment Inspector: LANEY Aranda ([facility]) [#/Vol]10.2 10*3/uLNormal3.5-11.3MUK HealthcareComment on above:Performed By: #### GLUSILVINO, CBC #### [address] [place], [place] [address]483 Garment Inspector: Yelena Greco MDGlucose Challenge Gestationalon 60-51-4123AMD ADMN GlucolaBon [facility] HospitalGlucose 1 Hr post 50 g glucose PO [Mass/Vol]184 mg/uKTpgh17 - 135 mg/dLBSentara Halifax Regional HospitalInterpretation and review of laboratory resultsAbnormalBon [facility] HospitalBon [facility] Glucose Toya Scr 50gon 04-17-6906Emmncpl [Mass/Vol]184 mg/iCKzzs20-452XdicwWexner Medical CenterComment on above:Performed By: #### GLUSC, CBC #### [address] [place], [place] [address] Garment Inspector: Yelena Greco MDGlu Administered viaGlucolaNormSelect Medical Cleveland Clinic Rehabilitation Hospital, BeachwoodComment on above:Performed By: #### GLUSC, CBC #### [address] [place] [address] Garment Inspector: Yelena Greco MDUS OB LESS THAN 14 WEEKS SINGLE OR FIRST GESTATION on 13-11-2500FXCXXKCIVWM: FIRST TRIMESTER OBSTETRIC ULTRASOUND 12/20/2024 TECHNIQUE: 1. [...] by: Noah Rivero MD 12/23/24 Final result [facility] CenterRadiology Study observation (narrative)[facility] Medical CenterUS OB LESS THAN 14 WEEKS SINGLE OR FIRST GESTATIONOrdered By: Radiologist Radiology on 52-64-2374DKLV [employer] Work Phone: US OB LESS THAN 14 WEEKS SINGLE OR FIRST GESTATION W DOPPLERon 18-02-5670YK OB LESS THAN 14 WEEKS SINGLE OR [...] by: Noah Rivero MD 12/23/24 Final resultNormalMercy Mill Creek HospitalUrinalysis macro (dipstick) panel (U)on 16-08-2821Ouevitaon, UANegativeNegative - 4(70) +++ mg/dLNOMS HealthcareBlood, UAPositiveNegative - 50 Yunior/mcLNOMS HealthcareClarity, UAClearNOMS Healthcare Color, UAYellowNOMS HealthcareGlucose, UANegativeNegative - 2000(110) ++++ mg/dL NOMS HealthcareInterpretation and review of laboratory resultsAbnormalNOUT HealthcareKetones, UANegativeNegative - 160(16) ++++ mg/dLNOMS Healthcare Leukocytes, UANegativeNegative - 500+++ Trip/mcLNOUT HealthcareNitrite, UA NegativeNegative - PositiveNOMS HealthcarepH, UA75 - 9NOMS HealthcareProtein, UA NegativeNegative - 2000(20) ++++ mg/dLNOMS HealthcareSpec Grav, UA1.011 - 1.03 NOMS HealthcareUrobilinogen, UA1.00.2 - 12 mg/dLNOMS HealthcareNOUT Healthcare HCG ( test) Ql (U)on 72-86-1369Oaqbdkwkzdrqys and review of laboratory resultsAbnormalBLUE MOUNTAIN HOSPITAL, INC. HealthcarePreg Test, UrPositiveNegativeNOMS HealthcareNOUT HealthcareUS OB TRANSVAGINALon 26-42-3230XF OB TRANSVAGINALEXAM: US OB TRANSVAGINAL HISTORY: Dating. [...] II, MD, PHD at 15-Nov-2024 09:44:32 AM [facility] TeleradiologyNormalNot AvailableComment on above:Order Comment: US OB TRANSVAGINAL No LMP recorded.Urinalysis macro (dipstick) panel (U)on 93-16-3528Owkvjyasl, UA NegativeNegative - 4(70) +++ mg/dLNOMS HealthcareBlood, UANegativeNegative - 50 Yunior/mcLNOUT HealthcareClarity, UAClearNOMS HealthcareColor, UAYellowNOMS HealthcareGlucose, UANegativeNegative - 1999(110) ++++ mg/dLNOMS Healthcare Interpretation and review of laboratory resultsNormalNOMS HealthcareKetones, UA NegativeNegative - 160(16) ++++ mg/dLNOMS HealthcareLeukocytes, UANegative Negative - 500+++ Trip/mcLNOMS HealthcareNitrite, UANegativeNegative - Positive NOMS HealthcarepH, UA6.55 - 9NOMS HealthcareProtein, UANegativeNegative - 1999(20) ++++ mg/dLNOMS HealthcareSpec Grav, UA1.0051 - 1.03NOMS Healthcare Urobilinogen, UA0.20.2 - 12 mg/dLNOMS HealthcareNOMS HealthcareIGP,APTIMA HPV,AGE GDLNon 63-48-3681DOV GDLN ACOG TESTINGNote.NOMS HealthcareComment on above:TESTS RESULT FLAG UNITS REF RANGE LAB Clinician Provided Cytology Information Source.............Cervix;Endocervix No. of containers..01 ThinPrep Vial Age Mack DALE Addie... FLAG LEGEND: L-Low Normal,H-High Normal,LL-Alert Low,HH-Alert High <-Panic Low,>-Panic High,A-Abnormal,AA-Critical Abnormal Performed at: 01 =[facility]The [facility] [address] [place] [address] Anastasiya Moses MD, IGP, RFX APTIMA HPV ASCUNote.NOMS HealthcareComment on above:TESTS RESULT FLAG UNITS REF RANGE LAB DIAGNOSIS: 02 NEGATIVE FOR INTRAEPITHELIAL LESION OR MALIGNANCY. Specimen adequacy: 02 Satisfactory for evaluation. Endocervical and/or squamous metaplastic cells (endocervical component) are present. Performed by: Oswald Galaviz, Staff Respiratory Therapist ([facility]) . 02 Note: Note 02 [...] <-Panic Low,>-Panic High,A-Abnormal,AA-Critical Abnormal Performed at: [address] [facility] [address] [address] Anastasiya Moses MD, Performed at: =G - [facility] [address] [id number] Garment Inspector: Anastasiya Moses MD, Phone: [phone] Performed at: - [facility] [id number] Garment Inspector: Anastasiya Moses MD, Phone: [phone] BRUSH-SPATULA CERVIX ENDOCERVIX CLINISYNCNOMS Wood County HospitalComp Metabolic Profon 92-05-3574Mqkyiqg [Mass/Vol]4.6 g/dLNormal3.5-5.2[facility] HospitalComment on above:Performed By: #### CP #### [address] [place] [address] Garment Inspector: Yelena Greco MDAlbumin/Glob Ratio1.8Miwlvv1.0-2.5Mer[facility] Bridge[facility] HospitalComment on above:Performed By: #### CP #### [address] [place], [place] [address] Garment Inspector: Giselle Aranda Phos71 U/ZPmhtpx64-166RsuxlWexner Medical CenterComment on above:Performed By: #### CP #### [address] [place], [place] [address] Garment Inspector: Yelena Greco MDALT [Catalytic activity/Vol]41 U/IPtjv09-24Jtjsw [facility] HospitalComment on above:Performed By: #### CP #### [address] [place] [address] Garment Inspector: Yelena Greco MDAnion gap [Moles/Vol]10 mmol/LNormal9-16[facility] Medical CenterComment on above:Performed By: #### CP #### [address] [place] [address] Garment Inspector: Yelena Greco MDAST [Catalytic activity/Vol]34 U/RQwihmn61-48Bwrgh [facility] HospitalComment on above:Performed By: #### CP #### [address] [place] [address] Garment Inspector: Yelena Greco MDBilirubin [Mass/Vol]0.4 mg/dLNormal0.00-1.20[facility] Medical CenterComment on above:Performed By: #### CP #### [address] [place] [address] Garment Inspector: Yelena Greco MDBUN/CRE Bcxuq72Hckh8-93Rfwfg [facility] Comment on above:Performed By: #### CP #### [address] [place], [place] [address] Garment Inspector: Yelena Greco MDCalcium [Mass/Vol]9.4 mg/dLNormal8.6-10.4[facility] HospitalComment on above:Performed By: #### CP #### [address] [place] [address] Garment Inspector: NATALIO Arandahloride [Moles/Vol]103 mmol/OWtmrsv77-889MhmuaWexner Medical CenterComment on above:Performed By: #### CP #### [address] [place] [address] Garment Inspector: Yelena Greco MDCO2 [Moles/Vol]25 mmol/UNbtedx71-00FilfvWexner Medical CenterComment on above:Performed By: #### CP #### [address] [place], [facility]83 Garment Inspector: NATALIO Arandareatinine [Mass/Vol]0.6 mg/dLNormal0.50-0.90[facility] Medical CenterComment on above:Performed By: #### CP #### [address] [place], [facility]83 Garment Inspector: Yelena Greco MDGFR/1.73 sq M.predicted among non-blacks MDRD (S/P/Bld) [Vol rate/Area]mL/min/{1.73_m2}Normal>60[facility] Medical CenterComment on above:Result Comment: These results are not [...] renal tubular secretion.Performed By: #### CP #### [address] [place] [address] Garment Inspector: Yelena Greco MDGlucose [Mass/Vol]83 mg/gPVnnbve42-71CmzozUK HealthcareComment on above:Performed By: #### CP #### [address] [place], [place] [address] Garment Inspector: ROLANDO Arandaotassium [Moles/Vol]4.6 mmol/LNormal3.7-5.3[facility] Creek HospitalComment on above:Performed By: #### CP #### [address] [place], [place] [address] Garment Inspector: Yelena Greco MDProtein [Mass/Vol]7.8 g/dLNormal6.6-8.7MerSelect Medical Specialty Hospital - Canton HospitalComment on above:Performed By: #### CP #### [address] [place], [place] [address] Garment Inspector: Yelena Greco MDSodium [Moles/Vol]138 mmol/DEvswyh166-769Kdbfh [facility] HospitalComment on above:Performed By: #### CP #### [address] [place], [place] [address] Garment Inspector: Yelena Greco MDUrea nitrogen [Mass/Vol]13 mg/dLNormal6-20[facility] Medical CenterComment on above:Performed By: #### CP #### [address] [place], [place] [address] Garment Inspector: NATALIO Arandaomprehensive Metabolic Panelon 19-23-7406Drhvwra [Mass/Vol]4.6 g/dL3.5 - 5.2 g/dLBon [facility] HospitalAlbumin/Globulin [Mass ratio]1.5 {ratio}1.0 - 2.5Bon [facility] HealthALP [Catalytic activity/Vol]71 U/L35 - 104 U/LBon [facility] HealthALT [Catalytic activity/Vol]41 U/LHigh10 - 35 U/LBon [facility] HospitalAnion gap [Moles/Vol]10 mmol/L9 - 16 mmol/LBon [facility] HealthAST [Catalytic activity/Vol]34 U/L10 - 35 U/LBon [facility] HospitalBilirubin [Mass/Vol]0.4 mg/dL0.00 - 1.20 mg/dLBon [facility] HospitalCalcium [Mass/Vol]9.4 mg/dL8.6 - 10.4 mg/dLBon [facility] Chloride [Moles/Vol]103 mmol/L98 - 107 mmol/LBon [facility] HospitalCO2 [Moles/Vol]25 mmol/L20 - 31 mmol/LBon [facility] HospitalCreatinine [Mass/Vol] 0.6 mg/dL0.50 - 0.90 mg/dLBon [facility] HospitalEst, Glom Filt Rate- PINFBon [facility] HospitalComment on above: These results are not [...] secretion. Glucose [Mass/Vol]83 mg/dL74 - 99 mg/dLBon [facility] HospitalInterpretation and review of laboratory resultsAbnormalAugusta HealthPotassium [Moles/Vol]4.6 mmol/L3.7 - 5.3 mmol/LBon [facility] HospitalProtein [Mass/Vol] 7.8 g/dL6.6 - 8.7 g/dLBon [facility] HospitalSodium [Moles/Vol]138 mmol/L136 - 145 mmol/LBon [facility] HospitalUrea nitrogen [Mass/Vol]13 mg/dL6 - 20 mg/dL Augusta HealthUrea nitrogen/Creatinine [Mass ratio]22 mg/mgHigh9 - 20 [facility] SystemLipid Panelon 05-20-2024 Cholesterol [Mass/Vol]152 mg/dL0 - 199 mg/dLBon [facility] HospitalComment on above: Cholesterol Guidelines: <200 Desirable 200-240 Borderline >240 Undesirable Cholesterol in HDL [Mass/Vol]33 mg/dLLow40 - PINF mg/dLBon [facility] Comment on above: HDL Guidelines: <40 Undesirable 40-59 Borderline >59 Desirable Cholesterol in LDL [Mass/Vol]88 mg/dL0 - 100 mg/dLBon [facility] [employer] Comment on above: LDL Guidelines: <100 Desirable 100-129 Near to/above Desirable 130-159 Borderline >159 Undesirable Direct (measured) LDL and calculated LDL are not interchangeable tests. Cholesterol in VLDL [Mass/Vol]31 mg/dLBon [facility] [employer] Cholesterol.total/Cholesterol in HDL [Mass ratio]5.0 {ratio}Augusta HealthInterpretation and review of laboratory resultsAbnormalBon [facility] Q[employer] TechnologyTriglyceride [Mass/Vol]156 mg/dLHighNINF - 150 mg/dLBon [facility] OaklandI Do Venues [facility] HospitalComment on above: Triglyceride Guidelines: <150 Desirable 150-199 Borderline 200-499 High >499 Very high Based on AHA Guidelines for fasting triglyceride, April 2012. [facility] HospitalMyWebzzSentara Virginia Beach General HospitalLipid Profileon 99-65-6894Epfdqsnbwhn [Mass/Vol]152 mg/dLNormal0-199[facility] CenterComment on above:Result Comment: Cholesterol Guidelines: <200 Desirable 200-240 Borderline >240 UndesirablePerformed By: #### LIPR #### [facility] [address] [place] [address] [id number] Garment Inspector: NATALIO Tavarezholesterol in HDL [Mass/Vol]33 mg/dLLow>40[facility] Medical CenterComment on above:Result Comment: HDL Guidelines: <40 Undesirable 40-59 Borderline >59 DesirablePerformed By: #### LIPR #### [facility] [address] [place] [address] [phone] Garment Inspector: NATALIO Tavarezholesterol in LDL [Mass/Vol]88 mg/dLNormal0-100 [facility] CenterComment on above:Result Comment: LDL Guidelines: <100 Desirable 100-129 Near to/above Desirable 130-159 Borderline >159 Undesirable Direct (measured) LDL and calculated LDL are not interchangeable tests.Performed By: #### LIPR #### [facility] [address] [place] [address] Garment Inspector: NATALIO Tavarezholesterol in VLDL [Mass/Vol]31 mg/dLNormal [facility] CenterComment on above:Performed By: #### LIPR #### [facility] [address] [place] [address] Garment Inspector: NATALIO Tavarezholesterol.total/Cholesterol in HDL [Mass ratio]5.0 {ratio}NormalWexner Medical CenterComment on above:Performed By: #### LIPR #### [facility] [address] [place], [place] [phone] Garment Inspector: Osvaldo Santamaria MDTriglyceride [Mass/Vol]156 mg/dLHigh<150[facility] Medical CenterComment on above:Result Comment: Triglyceride Guidelines: <150 Desirable 150-199 Borderline 200-499 High >499 Very high Based on AHA Guidelines for fasting triglyceride, April 2012.Performed By: #### LIPR #### [facility] [address] [place] [address] Garment Inspector: Osvaldo Santamaria MDUS GALLBLADDER RUQon 20-21-7396QX GALLBLADDER RUQEXAMINATION: RIGHT UPPER QUADRANT ULTRASOUND 03/06/2024 9:58 am COMPARISON: None. HISTORY: ORDERING SYSTEM PROVIDED HISTORY: Elevated liver enzymes TECHNOLOGIST PROVIDED HISTORY: This procedure [facility] [place] elevated liver enzymes, fam hx gallbladder disease. [...] Signed by: Hernandez Stewart MD 03/06/24 Final resultNormalWexner Medical CenterCBCon 02-88-9067Rjvstyxcvne distribution width (RBC) [Ratio]12.4 %Txtkpr13.8-14.4[facility] Medical CenterComment on above: Performed By: #### FEBC #### [facility] [address] [place] [address] Garment Inspector: Osvaldo Santamaria MD #### CBC, CP #### [address] [place], [place] [phone] Garment Inspector: Yelena Greco MDHematocrit (Bld) [Volume fraction]40.2 %Normal 36.3-47.1MUK HealthcareComment on above:Performed By: #### FEBC #### [address] [address] Garment Inspector: Osvaldo Santamaria MD #### CBC, CP #### [address] [place] [phone] Garment Inspector: Yelena Greco MDHemoglobin (Bld) [Mass/Vol]13.5 g/dLNormal 11.9-15.1MUK HealthcareComment on above:Performed By: #### FEBC #### [id number] [place] [address] Garment Inspector: Osvaldo Santamaria MD #### CBC, CP #### [address] [place] [phone] Garment Inspector: YULY ArandaCH (RBC) [Entitic mass]29.8 ttLomkyd21.2-33.5 [facility] Medical CenterComment on above:Performed By: #### FEBC #### [facility] [address] [place] [address] Garment Inspector: Osvaldo Santamaria MD #### CBC, CP #### [address] [place] [address] Garment Inspector: TY ArandaC (RBC) [Mass/Vol]33.6 g/gHTqqyys73.4-34.8[facility] on above:Performed By: #### FEBC #### [address] [place] [address] Garment Inspector: Osvaldo Santamaria MD #### CBC, CP #### [address] [place] [address] Garment Inspector: YULY ArandaCV (RBC) [Entitic vol]88.7 qURvilkx29.6-102.9 [facility] CenterComment on above:Performed By: #### FEBC #### [address] [address] Garment Inspector: Osvaldo Santamaria MD #### CBC, CP #### [address] [place], [place] [phone] Garment Inspector: Yelena Greco MDNRBC Automated0.0 per 100 WBCNormal0.0[facility] on above:Performed By: #### FEBC #### [address] [address] Garment Inspector: Osvaldo Santamaria MD #### CBC, CP #### [address] [place] [address] Garment Inspector: Sobeida Aranda mean volume (Bld) [Entitic vol]8.5 fL Normal8.1-13.5[facility] on above:Performed By: #### FEBC #### [address] [address] Garment Inspector: Osvaldo Santamaria MD #### CBC, CP #### [address] [place] [address] Garment Inspector: Lorena Arandatezahira (Bld) [#/Vol]309 10*3/qEVrfbus049-784 [facility] HospitalComment on above:Performed By: #### FEBC #### [address] [place] [address] Garment Inspector: Osvaldo Santamaria MD #### CBC, CP #### [address] [place], [place] [phone] Garment Inspector: BILL Aranda ([facility]) [#/Vol]4.53 10*6/uLNormal3.95-5.11MerSelect Medical Specialty Hospital - Canton HospitalComment on above:Performed By: #### FEBC #### [address] [address] Garment Inspector: Osvaldo Santamaria MD #### CBC, CP #### [address] [place], [place] [phone] Garment Inspector: Yelena Greco [facility] ([facility] [#/Vol]6.5 10*3/uLNormal3.5-11.3Mmagruder hospitaly Mill Creek HospitalComment on above:Performed By: #### FEBC #### [address] [address] Garment Inspector: Osvaldo Santamaria MD #### CBC, CP #### [address] [place], [place] [phone] Garment Inspector: NATALIO Arandabrigham city community hospital Metabolic Profon 51-33-2136Gvdqkgm [Mass/Vol] 4.5 g/dLNormal3.5-5.2[facility] hospitaly Mill Creek HospitalComment on above:Performed By: #### FEBC #### [address] [address] Garment Inspector: Osvaldo Santamaria MD #### CBC, CP #### [address] [place], [place] [phone] Garment Inspector: Yelena Greco MDAlbumin/Glob Ratio1.1Iynayz1.0-2.5[facility] Medical CenterComment on above:Performed By: #### FEBC #### [address] [address] Garment Inspector: Osvaldo Santamaria MD #### CBC, CP #### [address] [place], [place] [phone] Garment Inspector: Giselle Aranda Phos74 U/JOpshga64-279XepebWexner Medical CenterComment on above:Performed By: #### FEBC #### [address] [address] Garment Inspector: Osvaldo Santamaria MD #### CBC, CP #### [address] [place], [place] [phone] Garment Inspector: Yelena Greco MDALT [Catalytic activity/Vol]61 U/LHigh5-33[facility] Medical CenterComment on above:Performed By: #### FEBC #### [address] [address] Garment Inspector: Osvaldo Santamaria MD #### CBC, CP #### [address] [place], [place] [phone] Garment Inspector: Lindsay Aranda gap [Moles/Vol]8 mmol/LLow9-17[facility] Medical CenterComment on above:Performed By: #### FEBC #### [address] [address] Garment Inspector: Osvaldo Santamaria MD #### CBC, CP #### [address] [place], [place] [phone] Garment Inspector: Yelena Greco MDAST [Catalytic activity/Vol]43 U/LHigh<32[facility] Medical CenterComment on above:Performed By: #### FEBC #### [address] [address] Garment Inspector: Osvaldo Santamaria MD #### CBC, CP #### [address] [place], [place] [phone] Garment Inspector: Yelena Greco MDBilirubin [Mass/Vol]0.2 mg/dLLow0.3-1.2MercAvita [facility] System Ontario Hospital HospitalComment on above:Performed By: #### FEBC #### [address] [address] Garment Inspector: Osvaldo Santamaria MD #### CBC, CP #### [address] [place] [phone] Garment Inspector: Yelena Greco MDBUN/CRE Bzqjt92Rgsfqk8-00Pvtjj [facility] Comment on above:Performed By: #### FEBC #### [address] [address] Garment Inspector: Osvaldo Santamaria MD #### CBC, CP #### [address] [place] [phone] Garment Inspector: NATALIO Arandaalcium [Mass/Vol]9.4 mg/dLNormal8.6-10.4[facility] Medical CenterComment on above:Performed By: #### FEBC #### [address] [address] Garment Inspector: Osvaldo Santamaria MD #### CBC, CP #### [address] [place], [place] [phone] Garment Inspector: NATALIO Arandahloride [Moles/Vol]100 mmol/QRkpyzl37-668QxmlmWexner Medical CenterComment on above:Performed By: #### FEBC #### [address] [address] Garment Inspector: Osvaldo Santamaria MD #### CBC, CP #### [address] [place], [place] [phone] Garment Inspector: NATALIO ArandaO2 [Moles/Vol]28 mmol/GMzhtoy70-27UbnakWexner Medical CenterComment on above:Performed By: #### FEBC #### [facility] [address] [place] [address] Garment Inspector: Osvaldo Santamaria MD #### JERAMIE, CP #### [address] [place] [phone] Garment Inspector: NATALIO Arandareatinine [Mass/Vol]0.6 mg/dLNormal0.5-0.9[facility] Medical CenterComment on above:Performed By: #### FEBC #### [address] [place] [address] Garment Inspector: Osvaldo Santamaria MD #### JERAMIE, CP #### [address] [place] [phone] Garment Inspector: Yelena Greco MDGFR/1.73 sq M.predicted among non-blacks MDRD (S/P/Bld) [Vol rate/Area]mL/min/{1.73_m2}Normal>60[facility] Medical CenterComment on above:Result Comment: These results are not [...] renal tubular secretion.Performed By: #### FEBC #### [facility] [address] [place] [address] Garment Inspector: Osvaldo Santamaria MD #### CBC, CP #### [address] [place] [address] Garment Inspector: Yelena Greco MDGlucose [Mass/Vol]91 mg/yTJepvqe20-63Raowv [facility] HospitalComment on above:Performed By: #### FEBC #### [address] [address] Garment Inspector: Osvaldo Santamaria MD #### CBC, CP #### [address] [place], [place] [phone] Garment Inspector: ROLANDO Arandaotassium [Moles/Vol]4.2 mmol/LNormal3.7-5.3[facility] Creek HospitalComment on above:Performed By: #### FEBC #### [address] [address] Garment Inspector: Osvaldo Santamaria MD #### JERAMIE, CP #### [address] [place] [phone] Garment Inspector: Yelena Greco MDProtein [Mass/Vol]7.6 g/dLNormal6.4-8.3[facility] hospitaly Mill Creek HospitalComment on above:Performed By: #### FEBC #### [address] [address] Garment Inspector: Osvaldo Santamaria MD #### JERAMIE, CP #### [address] [place], [place] [phone] Garment Inspector: Yelena Greco MDSodium [Moles/Vol]136 mmol/XFngent478-549Vcpqj [facility] HospitalComment on above:Performed By: #### FEBC #### [address] [address] Garment Inspector: Osvaldo Santamaria MD #### CBC, CP #### [address] [place], [place] [phone] Garment Inspector: Yelena Greco MDUrea nitrogen [Mass/Vol]12 mg/dLNormal6-20[facility] HospitalComment on above:Performed By: #### FEBC #### [address] [address] Garment Inspector: Osvaldo Santamaria MD #### CBC, CP #### [address] [place], [place] [phone] Garment Inspector: Jorje Arandan Binding Cap.on 02-16-2024% Fe Qiokgmtjbi45 % Ukbdgd86-72Tbqpg [facility]iffin HospitalComment on above:Performed By: #### FEBC #### [address] [address] Garment Inspector: Osvaldo Santamaria MD #### CBC, CP #### [address] [place] [address] Garment Inspector: Una Aranda [Mass/Vol]92 ug/nBNjxjqs31-629Zlabd [facility] HospitalComment on above:Performed By: #### FEBC #### [address] [address] Garment Inspector: Osvaldo Santamaria MD #### CBC, CP #### [address] [place], [place] [phone] Garment Inspector: Yelena Greco MDTotal Fe Binding Cbi160 ug/uXMjmlan192-313Qrjxt [facility] HospitalComment on above:Performed By: #### FEBC #### [address] [address] Garment Inspector: Osvaldo Santamaria MD #### CBC, CP #### [address] [place], [place] [phone] Garment Inspector: Yelena Greco MDUnbound Fe Bind Oxr922 ug/tEOimssz496-275Lqxwj [facility] HospitalComment on above:Performed By: #### FEBC #### [address] [address] Garment Inspector: Osvaldo Santamaria MD #### CBC, MICAH #### [facility] [address] [place] [address] Garment Inspector: Yelena Greco MDLipid Profileon 79-57-2730Phpgsrcjlus [Mass/Vol] 245 mg/dLHigh0-199[facility] Centerment on above:Result Comment: Cholesterol Guidelines: <200 Desirable 200-240 Borderline >240 UndesirablePerformed By: #### LIPR #### [address] [address] Garment Inspector: Osvaldo Santamaria, MDCholesterol in HDL [Mass/Vol]34 mg/dLLow>40[facility] on above:Result Comment: HDL Guidelines: <40 Undesirable 40-59 Borderline >59 DesirablePerformed By: #### LIPR #### [address] [address] Garment Inspector: Osvaldo Santamaria MDCholesterol in LDL [Mass/Vol]159 mg/dLHigh0-100 [facility] on above:Result Comment: LDL Guidelines: <100 Desirable 100-129 Near to/above Desirable 130-159 Borderline >159 Undesirable Direct (measured) LDL and calculated LDL are not interchangeable tests.Performed By: #### LIPR #### [address] [address] Garment Inspector: Osvaldo Santamaria MDCholesterol in VLDL [Mass/Vol]52 mg/dLNormal [facility] CenterComharper university hospital on above:Performed By: #### LIPR #### [facility] [address] [place] [address] Garment Inspector: Chance Tavarezstmilad.total/Cholesterol in HDL [Mass ratio]7.0 {ratio}NormalWexner Medical CenterComharper university hospital on above:Performed By: #### LIPR #### [facility] [address] [place] [address] Garment Inspector: Osvaldo Santamaria MDTriglyceride [Mass/Vol]259 mg/dLHigh<150[facility] Medical CenterComment on above:Result Comment: Triglyceride Guidelines: <150 Desirable 150-199 Borderline 200-499 High >499 Very high Based on AHA Guidelines for fasting triglyceride, April 2012.Performed By: #### LIPR #### [facility] [address] [place] [address] Garment Inspector: Osvaldo Santamaria MDOffice Visiton 63-38-6916Fmmttb-up visit [id number] Vinny Downey 2000 Provider Department Center 07/11/2023 CoralRAJENDRA REBOLLEDO SAMSON Mccormick Family History Problem Relation Age of Onset Anemia Mother Supraventricular tachycardia Father Hyperlipidemia Father Diabetes Sister Family Status - Relation Status Age at Mother Father Sister Level of Service:51065 [place] OFFICE/OUTPATIENT NEW MODERATE MDM 45 MINUTESNoC[facility] Clinic [facility] Hospital for RehabilitationOffice Visiton 93-58-5191Goptha-up visit [phone] Vinny Downey 2000 Provider Department Center 03/20/2023 ISRAEL ULLOA SAMSON Liriano [facility] Family History Problem Relation Age of Onset Anemia Mother Supraventricular tachycardia Father Hyperlipidemia Father Diabetes Sister Family Status - Relation Status Age at Mother Father Sister Level of Service:[address] [place] OFFICE/OUTPATIENT NEW LOW MDM 30-44 MINUTESNoC[facility] Clinic Children[facility] Hospital for RehabilitationUS PREG BIOPHY W NON STRESSon 50-41-0730CL PREG BIOPHY W NON STRESSEXAMINATION: US PREG [...] Electronically authenticated by: YELENA CARLOS Date: 2022-12-20 07:03[facility] PREG PLACENTAon [id number] PREG PLACENTAEXAMINATION: US PREG PLACENTA HISTORY: Left [...] authenticated by: LUIS ALFREDO GRANT Date: 2022-12-12 14:56[facility] PREG BIOPHY W NON STRESSon [id number] PREG BIOPHY W NON STRESSEXAMINATION: US PREG [...] authenticated by: LUIS ALFREDO GRANT Date: 2022-12-11 04:08[facility] PREG GROWTHon [id number] PREG GROWTHEXAMINATION: US PREG GROWTH HISTORY: High [...] authenticated by: LUIS ALFREDO GRANT Date: 2022-12-11 04:06[facility] HospitalGTT 3 HR PREGon 64-48-1521Zaydfqv [Mass/Vol]98 mg/dLNormal 74-106W[facility]-Patterson Medical CenterComment on above:Performed By: #### GTT3P #### [facility] [address] [place] [address] Dr. Emilee SpringerGlucose [Mass/Vol]170 mg/dLCleveland Clinic Mercy HospitalComment on above:Performed By: #### GTT3P #### [facility] [address] [place] [address] Dr. Emilee SpringerGlucose [Mass/Vol]201 mg/dLCleveland Clinic Mercy HospitalComment on above:Performed By: #### GTT3P #### [facility] [address] [place] [address] Dr. Emilee SpringerGlucose [Mass/Vol]115 mg/dLCleveland Clinic Mercy HospitalComment on above:Performed By: #### GTT3P #### [facility] [address] [place] [address] Dr. Emilee Mcconnell PREG INCOMPLETE ANATOMYon [id number] PREG INCOMPLETE ANATOMY EXAM: US PREG INCOMPLETE ANATOMY HISTORY: screening COMPARISON: 09/10/2022 TECHNIQUE: Transabdominal FINDINGS: position: Transverse, head to the maternal right Heart rate: 157 bpm Normal observed anatomy: Nose/lips, four-chamber heart, left ventricular outflow tract, right ventricular outflow tract, spine IMPRESSION: Normal observed anatomy Electronically authenticated by: YELENA CARLOS Date: 2022-10-16 08:44[facility] AUTO DIFFon [id number] #0.0 103/ulNormal0.0-0.1[facility]-Patterson Medical CenterComment on above:Performed By: #### CBC #### [facility] [address] [address] [address] Emilee SpringerBasophils/100 WBC (Bld)0.2 %Normal0.2-2.0[facility] Comment on above:Performed By: #### CBC #### [facility] [address] [place] [address] Dr. Emilee Weldon #0.1 103/ulNormal0.0-0.7The [facility] HospitalComment on above: Performed By: #### CBC #### [facility] [address] [place] [address] Dr. Emilee Cintronosinophils/100 WBC (Bld)0.8 %Critically low0.9-7.0The [facility] HospitalComment on above:Performed By: #### CBC #### [facility] [address] [place] [address] Dr. Emilee Cintronrythrocyte distribution width (RBC) [Ratio]12.5 %Mvhwcj52.0-15.0 [facility]terson Medical CenterComment on above:Performed By: #### CBC #### [facility] [address] [place] [address] Dr. Emilee SpringerHematocrit (Bld) [Volume fraction]29.8 %Critically low36.0-48.0 [facility] Medical CenterComment on above:Performed By: #### CBC #### [facility] [address] [place] [address] Dr. Emilee SpringerHemoglobin (Bld) [Mass/Vol]10.0 g/dLCritically low12.0-16.0[facility] Medical CenterComment on above:Performed By: #### CBC #### [facility] [address] [place] [address] Dr. Emilee Van #0.05 10e3/ulCritically high0.00-0.03[facility] Comment on above:Performed By: #### CBC #### [facility] [address] [place] [address] Dr. Emilee Van %0.5 %Normal0.0-0.5The [facility] HospitalComment on above: Performed By: #### CBC #### [facility] [address] [address] [address] Emilee Renae #1.6 103/ulNormal1.2-3.8The [facility] HospitalComharper university hospital on above:Performed By: #### CBC #### [facility] [address] [place] [address] Dr. Emilee Danielhocytes/100 WBC (Bld)15.3 %Critically low20.5-60.0The [facility] HospitalComment on above:Performed By: #### CBC #### [facility] [address] [place] [address] Dr. Emilee Esquivel DIFF REQNONormalThe [facility] HospitalComment on above: Performed By: #### CBC #### [facility] [address] [place] [address] Dr. Emilee Hannah (RBC) [Entitic mass]30.2 upVwlifx41.7-34.0The [facility] HospitalComment on above:Performed By: #### CBC #### [facility] [address] [place] [address] Dr. Emilee Guevara (RBC) [Mass/Vol]33.6 g/aVOwoagp50.9-35.2The [facility] on above:Performed By: #### CBC #### [facility] [address] [place] [address] Dr. Emilee Guevara (RBC) [Entitic vol]90.0 qNAfjvlx01.0-99.0The [facility] HospitalComment on above:Performed By: #### CBC #### [facility] [address] [place] [address] Dr. Emilee Banegas #0.6 103/ulNormal0.3-0.8The [facility] on above:Performed By: #### CBC #### [facility] [address] [place] [address] Dr. Emilee Hightowerocytes/100 WBC (Bld)5.8 %Normal1.7-12.0The [facility] Comment on above:Performed By: #### CBC #### [facility] [address] [place] [address] Dr. Emilee Fernandez #8.2 103/ulCritically high1.4-6.5The [facility] Comment on above:Performed By: #### CBC #### [facility] [address] [place] [address] Dr. Emilee Meeksutrophils/100 WBC (Bld)77.4 %Critically high43.0-75.0The [facility] HospitalComment on above:Performed By: #### CBC #### [facility] [address] [place] [address] Dr. Emilee Olmedolet mean volume (Bld) [Entitic vol]8.5 fLCritically low 9.5-13.5The [facility] HospitalComment on above:Performed By: #### CBC #### [facility] [address] [place] [address] Dr. Emilee SpringerPLT347 103/amSaomik640-555Kpn [facility] HospitalComment on above: Performed By: #### CBC #### [facility] [address] [place] [address] Dr. Emilee SpringerRBC3.31 106/ulCritically low4.20-5.40The [facility] HospitalComment on above:Performed By: #### CBC #### [facility] [address] [place] [address] Dr. Emilee SpringerWBC10.6 103/ulNormal4.0-11.0The [facility] HospitalComment on above:Performed By: #### CBC #### [facility] [address] [place] [address] Dr. Emilee SpringerGLUCOSE - 1HRon 75-14-2956Zvbvhub [Mass/Vol]176 mg/dLCritically skaf37-303Hzo [facility] HospitalComment on above:Performed By: #### GLU1HR #### [facility] [address] [place] [address] Dr. Yilan ChangCHLAMYDIA/GONOCOCCUS ANISA (SWAB/URINE/PAPon 21-80-8336Fimjawnfi trachomatis, NAANegativeNormalNegativeThe [facility] HospitalComment on above: Performed By: #### CBC #### [facility] [address] [place] [address] Dr. Emilee SpringerNeisseria gonorrhoeae, NAANegativeNormalNegativeWright-Patterson Medical CenterComment on above:Performed By: #### CBC #### [facility] [address] [address] [address] Emilee SpringerVAGINITIS/VAGINOSIS DNA PROBEon 43-82-8815Clkvehl speciesNegative NormalNegativeThe [facility] HospitalComment on above:Performed By: #### CBC #### [facility] [address] [place] [address] Dr. Emilee Wickdnerelllinda vaginalisNegativeNormalNegativeWright-Patterson [facility] Center Comment on above:Performed By: #### CBC #### [facility] [address] [place] [address] Dr. Emilee SpringerTrichomonas vaginalisNegativeNormflNegativeWright-Patterson Medical Center Comment on above:Performed By: #### CBC #### [facility] [address] [place] [address] Dr. Emilee Mcconnell PREG ANATOMY SINGLEon [id number] PREG ANATOMY SINGLE EXAMINATION: US PREG ANATOMY [...] authenticated by: LUIS ALFREDO GRANT Date: 2022-09-13 16:57[facility] MATERNAL FOR SPINA BIFIDAon 78-01-9929QJN MoM0.42C[facility] Clinic Mercy HospitalComment on above:Performed By: #### AFPMAT #### [facility] [address] [place] [address] Dr. Emilee Yoder Value16.7 ng/mLNUniversity Hospitals Health SystemComment on above: Performed By: #### AFPMAT #### [facility] [address] [place] [address] Dr. Emilee Yoder, Serum for Spina BifidaReCleveland Clinic Lutheran Hospital Comment on above:Performed By: #### AFPMAT #### [facility] [address] [place] [address] Dr. Emilee SpringerMercy Mccune-Brooks HospitalfaustinoProMedica Defiance Regional HospitalComment on above:Result Comment: Pam Machado, Ph.D., [facility] Director . References: Available Upon Request. . Multiples Of Median Cutoffs For AFP Elevations Berkowitz 2.5 Black 2.8 IDD 2.0 Twins 4.5 Abbreviation Definitions IDD - Insulin Dep Diabetes OSBR - Open Spina Bifida Risk . For further inquiries contact [employer] [facility] at [phone]. . This test was developed and its performance characteristics determined by [facility]. It has not been cleared or approved by the Food and Drug Administration.Performed By: #### AFPMAT #### [facility] [address] [address] [address] Emilee Barrow Age Collection Date18.6 weeksC[facility] Comment on above:Performed By: #### AFPMAT #### [facility] [address] [address] [address] Emilee Barrowat, Age Based onEMount Carmel Health SystemComment on above:Result Comment: 01/26/2023 Recalculations are not recommended when gestational dating by LMP and ultrasound are within 10 days.Performed By: #### AFPMAT #### [facility] [address] [address] [address] Emilee Luis [facility] HospitalComment on above:Result Comment: Not provided. .Performed By: #### AFPMAT #### [facility] [address] [place] [address] Dr. Emilee SpringerInterpretationProMedica Defiance Regional HospitalComment on above: Result Comment: Interpretation: Screen Negative [...] Customer Services to discuss available options. The [employer] recommends amniocentesis be offered to women age 35 and older.Performed By: #### AFPMAT #### [facility] [address] [address] [address] Emilee Chong Age at EDD[age] yrCleveland Clinic Mercy HospitalComment on above:Performed By: #### AFPMAT #### [facility] [address] [address] [address] Emilee Marqueziplmaria elena Flower HospitalComharper university hospital on above:Result Comment: Not provided. .Performed By: #### AFPMAT #### [facility] [address] [place] [address] Dr. Emilee SpringerOSBR Risk 1 [id number]. Rita's HospitalComment on above: Performed By: #### AFPMAT #### [facility] [address] [place] [address] Dr. Emilee Galo.NormalThe [facility] HospitalComharper university hospital on above:Performed By: #### AFPMAT #### [facility] [address] [place] [address] Dr. Emilee SpringerRaceCommentNoMartins Ferry Hospital on above:Result Comment: Not provided. .Performed By: #### AFPMAT #### [facility] [address] [place] [address] Dr. Emilee Arvizu Results:NegativeNoSt. Rita's HospitalComment on above: Performed By: #### AFPMAT #### [facility] [address] [place] [address] Dr. Emilee SpringerRujessea antibody, IgGon 86-52-2075Wrsjhpr virus IgG Ql (S)314.5 IU/mLStafford Hospital on above: REFERENCE RANGE: <5.0 NON-REACTIVE (non-immune) 5.0 TO 9.9 EQUIVOCAL >=10.0 REACTIVE (immune) [facility] B SURFACE ANTIGEN SCREENon 00-87-7133NCaKz Screen NegativeNormalNegativeThe [facility] on above:Performed By: #### HBSANS #### [facility] [address] [place] [address] Dr. Emilee SpringerHEPATITIS C VIRUS AB W/ REFLEX QUANTon 43-74-0445DVE AB<0.1Normal 0.0-0.9The [facility] on above:Performed By: #### HCVPCRR #### [facility] [address] [place] [address] Dr. Emilee SpringerInterpretation:CommentKindred Hospital Dayton on above:Result Comment: Negative Not infected with HCV, unless recent infection is suspected or other evidence exists to indicate HCV infection.Performed By: #### HCVPCRR #### [facility] [address] [place] [address] Dr. Emilee JallohV 1 AND 2 WITH REFLEXon 63-85-8498KAY Screen 4th Generation wRfxNon-ReactiveNormalNon ReactiveThe [facility] General Health Centerment on above:Result Comment: HIV Negative HIV-1/HIV-2 antibodies and HIV-1 p24 antigen were NOT detected. There is no laboratory evidence of HIV infection.Performed By: #### CBC #### [facility] [address] [place] [address] Dr. Emilee SpringerRPR QUANTon 27-56-5680Lliym Plasma Reagin, QuantNon-Reactive NormalNonRea<1:1The [facility] on above:Result Comment: Please Note: This test does not meet current guidelines for screening and diagnosis of syphilis. This test is intended for following treatment response in patients being treated for syphilis infection. To screen for syphilis infection, a reflex cascade that includes both RPR and a treponema-specific assay should be utilized, such as Treponema pallidum (Syphilis) Screening [place] (440691) or Rapid Plasma Reagin (RPR) Test With Reflex to Quantitative RPR and Confirmatory Treponema pallidum Antibodies (484356).Performed By: #### CBC #### [facility] [address] [place] [address] Dr. Emilee Ramírez AB IGGon 26-45-1054Edngenm Antibodies, IgG5.03 index NormalImmune >0.99The [facility] on above:Result Comment: Non- immune <0.90 Equivocal 0.90 - 0.99 Immune >0.99Performed By: #### RUBIGG #### [facility] [address] [place] [address] Dr. Emilee Killian AUTO DIFFon 14-09-9344GLWI #0.0 103/ulNormal0.0-0.1The Southwest General Health Centerment on above:Performed By: #### GLU1HR #### [facility] [address] [place] [address] Dr. Emilee SpringerBasophils/100 WBC (Bld)0.2 %Normal0.2-2.0The [facility] Comment on above:Performed By: #### GLU1HR #### [facility] [address] [place] [address] Dr. Emilee Weldon #0.1 103/ulNormal0.0-0.7The [facility] HospitalComment on above: Performed By: #### GLU1HR #### [facility] [address] [place] [address] Dr. Emilee Cintronosinophils/100 WBC (Bld)0.9 %Normal0.9-7.0The [facility] Comment on above:Performed By: #### GLU1HR #### [facility] [address] [place] [address] Dr. Emilee Cintronrythrocyte distribution width (RBC) [Ratio]11.9 %Qvurxw12.0-15.0 The [facility] HospitalComment on above:Performed By: #### GLU1HR #### [facility] [address] [place] [address] Dr. Emilee SpringerHematocrit (Bld) [Volume fraction]32.9 %Critically low36.0-48.0 The [facility] HospitalComment on above:Performed By: #### GLU1HR #### [facility] [address] [place] [address] Dr. Emilee SpringerHemoglobin (Bld) [Mass/Vol]11.6 g/dLCritically low12.0-16.0The [facility] HospitalComment on above:Performed By: #### GLU1HR #### [facility] [address] [place] [address] Dr. Emilee Van #0.03 10e3/ulNormal0.00-0.03The [facility] HospitalComment on above:Performed By: #### GLU1HR #### [facility] [address] [place] [address] Dr. Emilee Van %0.3 %Normal0.0-0.5The [facility] HospitalComment on above: Performed By: #### GLU1HR #### [facility] [address] [place] [address] Dr. Emilee Renae #2.1 103/ulNormal1.2-3.8The [facility] HospitalComment on above:Performed By: #### GLU1HR #### [facility] [address] [place] [address] Dr. Emilee Danielhocytes/100 WBC (Bld)20.2 %Critically low20.5-60.0The [facility] HospitalComment on above:Performed By: #### GLU1HR #### [facility] [address] [place] [address] Dr. Emilee PenningtonUAL DIFF REQNONormalThe [facility] HospitalComment on above: Performed By: #### GLU1HR #### [facility] [address] [place] [address] Dr. Emilee Hannah (RBC) [Entitic mass]31.4 yiIfoxit21.7-34.0The [facility] HospitalComment on above:Performed By: #### GLU1HR #### [facility] [address] [place] [address] Dr. Emilee Geuvara (RBC) [Mass/Vol]35.3 g/dLCritically high29.9-35.2The [facility] HospitalComment on above:Performed By: #### GLU1HR #### [facility] [address] [place] [address] Dr. Emilee Guevara (RBC) [Entitic vol]89.2 nJNwqary92.0-99.0The [facility] HospitalComment on above:Performed By: #### GLU1HR #### [facility] [address] [place] [address] Dr. Emilee Banegas #0.7 103/ulNormal0.3-0.8The [facility] HospitalComment on above:Performed By: #### GLU1HR #### [facility] [address] [place] [address] Dr. Emilee Hightowerocytes/100 WBC (Bld)7.0 %Normal1.7-12.0The [facility] Comment on above:Performed By: #### GLU1HR #### [facility] [address] [place] [address] Dr. Emilee Fernandez #7.5 103/ulCritically high1.4-6.5The [facility] Comment on above:Performed By: #### GLU1HR #### [facility] [address] [place] [address] Dr. Emilee Meeksutrophils/100 WBC (Bld)71.4 %Nvtzsx96.0-75.0The [facility] HospitalComment on above:Performed By: #### GLU1HR #### [facility] [address] [place] [address] Dr. Emilee SpringerPlatelet mean volume (Bld) [Entitic vol]9.1 fLCritically low 9.5-13.5The [facility] HospitalComment on above:Performed By: #### GLU1HR #### [facility] [address] [place] [address] Dr. Emilee SpringerPLT311 103/zgMtkmhs119-046Hzx [facility] HospitalComment on above: Performed By: #### GLU1HR #### [facility] [address] [place] [address] Dr. Emilee SpringerRBC3.69 106/ulCritically low4.20-5.40The [facility] HospitalComment on above:Performed By: #### GLU1HR #### [facility] [address] [place] [address] Dr. Emilee SpringerWBC10.5 103/ulNormal4.0-11.0The [facility] HospitalComment on above:Performed By: #### GLU1HR #### [facility] [address] [place] [address] Dr. Emilee SpringerCULTDENZEL URINEon 47-51-8026VPJIZEE URINECulture Observations: LIGHT GROWTH OF MIXED GENITAL BREN. NO POTENTIAL PATHOGENS SEEN.NormalThe [facility] HospitalComment on above:Performed By: #### GLU1HR #### [facility] [address] [place] [address] Dr. Emilee SpringerGLYCOHEMOGLOBIN A1Con 78-67-2833KRO RECOMMENDATIONSEE BELOWNormal The [facility] HospitalComment on above:Result Comment: ADA RECOMMENDED LIMIT 4.0 - 6.0 ADA THERAPEUTIC TARGET < 7.0 ACTION SUGGESTED > 7.0Performed By: #### A1C #### [facility] [address] [place] [address] Dr. Emilee SpringerGlucose [Mass/Vol]108 mg/dLNoSt. Rita's HospitalComment on above:Performed By: #### A1C #### [facility] [address] [place] [address] Dr. Emilee SpringerHbA1c (Bld) [Mass fraction]5.4 %Normal4.5-6.2The [facility] HospitalComment on above:Performed By: #### A1C #### [facility] [address] [place] [address] Dr. Emilee Alonzo BOX TEST PT SEND OUTon 44-38-1805IRVQ TO REF LAB07/04/2022 NormalThe [facility] HospitalComharper university hospital on above:Performed By: #### NBOX #### [facility] [address] [place] [address] Dr. Emilee SpringerTYPE AND SCREENon 23-09-5477HLOA AND SCREENNegativeNoSt. Rita's HospitalComharper university hospital on above:Performed By: #### GLU1HR #### [facility] [address] [place] [address] Dr. Emilee SpringerUS PREG TVon 33-59-6116VW PREG TVEXAMINATION: US PREG TV HISTORY: test [...] Electronically authenticated by: YELENA CARLOS Date: 2022-06-23 17:00[facility] TownshipG, Quantitative, Pregnancyon 84-85-3961oVT Gmdeg92923TgfrZUGU [facility] on above: Non-preg premeno <=5 Postmeno <=8 Male <=3 If HCG results do not concur with clinical observations, additional testing to confirm results is recommended. Interpretation and review of laboratory resultsAbnormalFAUQUIER HEALTH SYSTEMOG PANEL 2: 21 to 29on 04-24-2022..NormalThe [facility] on above:Performed By: #### [id number] #### [facility] [address] [place] [address] Dr. Emilee SpringerAge Gdln ACOG Wqsqhtf25-12ScvnoyWebKindred Hospital Dayton on above:Performed By: #### [id number] #### [facility] [address] [place] [address] Dr. Emilee SpringerDIAGNOSIS:CommentKindred Hospital Dayton on above: Result Comment: NEGATIVE FOR INTRAEPITHELIAL LESION OR MALIGNANCY. CELLULAR CHANGES ASSOCIATED WITH INFLAMMATION ARE PRESENT.Performed By: #### [id number] #### [facility] [address] [place] [address] Dr. Emilee SpringerMethodology:CommentKindred Hospital Dayton on above: Result Comment: This liquid based ThinPrep(R) pap test was screened with the use of an image guided system.Performed By: #### [id number] #### [facility] [address] [place] [address] Dr. Emilee SpringerNote:CommentKindred Hospital Dayton on above:Result Comment: The Pap smear is a screening test designed to aid in the detection of premalignant and malignant conditions of the uterine cervix. It is not a diagnostic procedure and should not be used as the sole means of detecting cervical cancer. Both false-positive and false-negative reports do occur. .Performed By: #### [id number] #### [facility] [address] [place] [address] Dr. Emilee SpringerPerformed by:CommentKindred Hospital Dayton on above: Result Comment: Mary Lou Adams, CytotechnologistPerformed By: #### [id number] #### [facility] [address] [address] [address] Emilee SpringerReflex Criteria:CommentKindred Hospital Dayton on above:Result Comment: The HPV DNA reflex criteria were not met with this specimen result therefore, no HPV testing was performed. .Performed By: #### [id number] #### [facility] [address] [address] [address] Emilee SpringerSpecimen adequacy:CommentKindred Hospital Dayton on above:Result Comment: Satisfactory for evaluation. Endocervical and/or squamous metaplastic cells (endocervical component) are present.Performed By: #### [id number] #### [facility] [address] [address] [address] Emilee SpringerHCG, Quantitative, Pregnancyon 99-18-1225oWA Currp81Zlnb<5 IU/L [facility] Hospital - TrumbullLudiaMercy Mccune-Brooks Hospitalment on above: Non-preg premeno <=5 Postmeno <=8 Male <=3 If HCG results do not concur with clinical observations, additional testing to confirm results is recommended. Elevated results not associated with may be found in patients with other diseases such as tumors of the germ cells (testis, ovaries, etc.), bladder, pancreas, stomach, lungs, and liver. Interpretation and review of laboratory resultsAbnoAscension Columbia St. [facility] RENAL COMPLETEOrdered By: Lorena Ricks on 89-06-6649Ummgucpkvnis ultrasound of the kidneys and urinary bladder.[employer] Phone: eXAMINATION: RETROPERITONEAL ULTRASOUND OF THE KIDNEYS AND URINARY BLADDER 11/25/2020 COMPARISON: None HISTORY: ORDERING SYSTEM PROVIDED HISTORY: Frequent UTI TECHNOLOGIST PROVIDED HISTORY: This procedure can be scheduled via eReceipts. Access your eReceipts account by visiting [employer]. FINDINGS: Kidneys: The right kidney measures 11.1 cm in length and the left kidney measures 11.6 cm in length. Kidneys demonstrate normal cortical echogenicity. No evidence of hydronephrosis or intrarenal stones. Bladder: Unremarkable appearance of the bladder. No significant post void residual.[employer] Phone: eanuj, Mhkirsten Incoming Radiant Results From [employer] - 11/25/2020 3:59 PM EDT EXAMINATION: RETROPERITONEAL ULTRASOUND OF THE KIDNEYS AND URINARY BLADDER 11/25/2020 COMPARISON: None HISTORY: ORDERING SYSTEM PROVIDED HISTORY: Frequent UTI TECHNOLOGIST PROVIDED HISTORY: This procedure can be scheduled via eReceipts. Access your eReceipts account by visiting [employer]. FINDINGS: Kidneys: The right kidney measures 11.1 cm in length and the left kidney measures 11.6 cm in length. Kidneys demonstrate normal cortical echogenicity. No evidence of hydronephrosis or intrarenal stones. Bladder: Unremarkable appearance of the bladder. No significant post void residual. IMPRESSION: Unremarkable ultrasound of the kidneys and urinary bladder. [employer] Phone: Formson 97-53-4580Xujuw [id number]#1.00CD:127NoKettering Health Main CampusAmbulatory Clinical Summaryon 50-14-5346Pplzabmkkz Clinical Summary {40-af-hm-wy-et-09-89-69-b5-9z-a5-19-5a-16-ce-86}CD:[id number] Hospitals TriPoint Medical CenterGeneral Surgery Office/Clinic Noteon 11-73-9179Devnynl Surgery Office/Clinic NoteChief Complaint post operative follow up HPI Staff 8 day post operative follow up post lap appendectomy completed while in-patient at [facility]. Doing well. Minimal discomfort. Taking Ibuprofen [...] available Patient Education Exercise to Lose Weight, Hdwe-rt-Stkf Problem List/Past Medical History Ongoing Acute appendicitis [...] Use:., 10/13/2020 Family History Family history is negativeRuby Thomas B. Finan CenterComment on above: Result Comment: Electronically Signed By: LATANYA MCKENNA, Sushant Babb\Date and Time Signed: 10/13/20 13:39 EDTPatient Educationon 30-67-5423Bdomwwi Education Exercise to Lose Weight Exercise and [...] Document Reviewed: 08/12/2011 ExitCare? Patient Information ?2013 [employer].[facility] TriPoint Medical CenterProvider Letter FTon 86-93-5052Lxbbcnhr Letter [facility] October 13, 2020 ARABELLAYUMIKO VINNY C [address] [place] [address] ARABELLAYUMIKO VINNY Barnett 2000 To Whom It May Concern, Please excuse above patient from work 10/14/20. Sincerely, Dr. Sushant Lott MD General SurgeryNoKettering Health Main CampusPathology Noteon 10-08-2020 Pathology [id number]:127[facility] TriPoint Medical CenterFacesheeton 07-26-3242Yfwbwpsbn [id number]#1.00CD:[address] [place], [place] [address]Operative Reporton 41-50-1755Mlfaoyhww Report [id number]:127[facility] Tri[facility] Medical CenterHIV Screenon 95-16-2096BNS Ag/AbNONREACTIVENONREACTIVEAdena Regional Medical Center- [place], [place] Comment on above:No laboratory evidence of HIV infection. If acute HIV infection is suspected, consider testing for HIV-1 RNA. Basic Metabolic Panelon 05-91-3694Eljbj gap [Moles/Vol]11 mmol/L9 - 17 mmol/L [facility]- [place], KYBun/Cre Evwct41Xbdjm Health- [place], KYCalcium [Mass/Vol]9.3 mg/dL8.6 - 10.4 mg/dLSuburban Community Hospital & [facility]- [place], KYChloride [Moles/Vol]103 mmol/L98 - 107 mmol/LMercy Health- [place], KYCO2 [Moles/Vol]23 mmol/L20 - 31 mmol/LMercy Health- [place], KYCreatinine [Mass/Vol]0.57 mg/dL0.5 - 0.9 mg/dLSuburban Community Hospital & [facility]- [place], KYGFR >60>60 mL/minMer Health- [place], WIGFR Non->60>60 mL/minTrinity Health System [facility], WIGlucose [Mass/Vol]88 mg/dL70 - 99 mg/dLTrinity Health System [facility], WIPotassium [Moles/Vol]4.6 mmol/L3.7 - 5.3 mmol/LMMercy Health [facility]ana [facility], WISodium [Moles/Vol]137 mmol/L135 - 144 mmol/LMMercy Health [facility]rb[facility], WIUrea nitrogen [Mass/Vol]11 mg/dL6 - 20 mg/dLWilmington, KYCBCon 75-97-7597Gklusmofpim distribution width (RBC) [Ratio]11.7 %Low11.8 - 14.4 %[place], [place] Hematocrit (Bld) [Volume fraction]36.4 %36.3 - 47.1 %[place], [place] Hemoglobin (Bld) [Mass/Vol]12.2 g/dL11.9 - 15.1 g/dLWilming[place], [place] Interpretation and review of laboratory resultsAbnormalWilmington, KYMCH (RBC) [Entitic mass]31.4 pg25.2 - 33.5 pgWilmington, KYMCHC (RBC) [Mass/Vol]33.5 g/dL28.4 - 34.8 g/dLWilmington, KYMCV (RBC) [Entitic vol] 93.8 fL82.6 - 102.9 fLWilmington, KYPlatelet mean volume (Bld) [Entitic vol]9.2 fL8.1 - 13.5 fLWilmington, KYPlatelets (Bld) [#/Vol]307 10*3/uL [place], KYRBC (Bld) [#/Vol]3.88 10*6/uLLow3.95 - 5.11 m/uLWilmington, KYWBC (Bld) [#/Vol]7.2 10*3/uLWilmington, KYWBC (Bld) [#/Vol] 0.0 10*3/uL0.0 per 100 WBCWilmington, KYMetabolic Panelon 05-04-2020 GFR/1.73 sq M predicted among non-blacks MDRD (S/P/Bld) [Vol rate/Area][place], KYComment on above:Stage 1: Some kidney damage [...] body mass. Additional eGFR calculator available at: http://www.[employer]_crcl_2011.htm HELLENon 99-52-6723KLL Qn2.22 m[IU]/LMMorganton, [place] Vital Signs Date TimeVital SignValuePerforming FmzuvxfgdEqhculra59-35-8635 15:05-0400Body mass index (BMI) [Ratio]37.47 kg/f1MytrdLogan Work Phone: NOSaint John's Saint Francis HospitalLjeaznktbo37-40-1498 15:05-0400Body ygivgp892.29 kgCoreLogan Work Phone: NOSaint John's Saint Francis HospitalPekwnkkvyh67-43-7885 15:05-0400Diastolic blood fapulkaf59 mm[Hg]ecomom Work Phone: NOSaint John's Saint Francis HospitalDfdomangyv94-05-0342 15:05-0400Systolic blood cjbudtkt232 mm[Hg]ecomom Work Phone: NOSaint John's Saint Francis HospitalWnyqsjbmzq09-10-9043 15:11-0400Body mass index (BMI) [Ratio]36.7 kg/l4QgqpxiklCeasar Li DENTAL CHAIR ASSEMBLER Work Phone: NOSaint John's Saint Francis HospitalSaavmwdhcs74-21-7100 15:11-0400Body czmoua435.15 kgCeasar Li DENTAL CHAIR ASSEMBLER Work Phone: NOSaint John's Saint Francis HospitalKjpyppltqc34-69-3216 15:11-0400Diastolic blood tineabzd15 mm[Hg]Ceasar Li DENTAL CHAIR ASSEMBLER Work Phone: [facility] CenterMnmpqwtexo22-65-3819 15:11-0400Systolic blood mm[Hg]Ceasar Li DENTAL CHAIR ASSEMBLER Work Phone: [facility] CenterEvbgijeyll66-96-3792 15:50-0400Body mass index (BMI) [Ratio]36.64 kg/m2Amy Oralia PA Work Phone: [facility] CenterGqntvepssq67-72-0945 15:50-0400Body imjhhw328.97 kgAmy Oralia PA Work Phone: [facility] CenterHvtdlcwzdu11-71-7107 15:50-0400Diastolic blood ryrumixp90 mm[Hg]Regina Barton PA Work Phone: [facility] CenterLohbnndrhq21-29-0529 15:50-0400Systolic blood mm[Hg]Regina Barton PA Work Phone: [facility] CenterDozjpocczw95-37-5930 15:44-0400Body mass index (BMI) [Ratio]36.61 kg/m2Amy Oralia PA Work Phone: [facility] CenterEhjgjtpmlw43-01-1353 15:44-0400Body .88 kgAmy [place] PA Work Phone: [facility] CenterGmvjujxblt37-01-1776 15:44-0400Diastolic blood lmtagndr85 mm[Hg]Regina Barton PA Work Phone: [facility] CenterJddhdvufoj85-64-1066 15:44-0400Systolic blood veltolmr601 mm[Hg]Regina Barton PA Work Phone: [facility] CenterGnjcxgsngk77-17-5699 16:08-0400Body mass index (BMI) [Ratio]36.12 kg/l1Rheen Law DO Work Phone: [facility] CenterDbjfpecjch02-26-0355 16:08-0400Body .52 kgCorey Law DO Work Phone: [facility] CenterEljxojhnww37-00-1890 16:08-0400Diastolic blood sqkzstyq51 mm[Hg]Mukul Law DO Work Phone: [phone] [place], [place] [address]Azozvdymcd70-80-9804 16:08-0400Systolic blood pifktmvp074 mm[Hg]Mukul Law DO Work Phone: [phone] [place], [place] [address]Ehlxixmjvc19-93-6310 15:58-0400Body mass index (BMI) [Ratio]35.96 kg/o2Lafmj Law DO Work Phone: [phone] [place], [place] [address]Mzzgrcztpi77-27-0093 15:58-0400Body rvpowz375.06 kgCorey Law DO Work Phone: [phone] [place], [place] [address]Czseevcxcm25-17-2405 15:58-0400Diastolic blood pimebcnv64 mm[Hg]Mukul Law DO Work Phone: [phone] [place], [place] [address]Ztzzhcvsnj19-87-5837 15:58-0400Systolic blood pybeaftx504 mm[Hg]Mukul Law DO Work Phone: [phone] [place], [place] [address]Udcjioefrd37-47-7919 14:06-0400Body mass index (BMI) [Ratio]34.99 kg/y9Swdfr Law DO Work Phone: [phone] [place], [place] [address]Qfdszkrttb99-53-6381 14:06-0400Body pbdgto38.34 kgCorey Law DO Work Phone: [phone] [place], [place] [address]Yrgfeaqant02-07-0817 14:06-0400Diastolic blood akbriiat65 mm[Hg]Mukul Law DO Work Phone: [phone] [place], [place] [address]Ilyfcdwvvp93-69-4659 14:06-0400Systolic blood jmikblow517 mm[Hg]Mukul Law DO Work Phone: [phone] [place], [place] [address]Rqzyewymgn73-00-4965 16:41-0400Body mass index (BMI) [Ratio]34.19 kg/b7Gqwck Law DO Work Phone: [phone] [place], [place] [address]Clwgszaapw77-23-5090 16:41-0400Body .07 kgCorey Law DO Work Phone: [phone] [place], [place] [address]Xmvohmnuht22-87-9960 16:41-0400Diastolic blood outvesdp22 mm[Hg]Mukul Law DO Work Phone: [facility] Center[facility]qojotfjsd[facility]98-8413 16:41-0400Systolic blood clvenyrz947 mm[Hg]Mukul Law DO Work Phone: [phone] [place], [place] [address]Jkecriogxz29-28-0811 16:15-0400Body mass index (BMI) [Ratio]34.22 kg/m4Ltpbs Lwa DO Work Phone: [phone] [place], [place] [address]Ncfwaaageh76-55-4095 16:15-0400Body rubghy34.16 kgCorey Law DO Work Phone: [phone]05-28-2025 16:15-0400Diastolic blood ogugxmra80 mm[Hg]Mukul Law DO Work Phone: [phone] [place], [place] [address]Mmuhztqwtn27-24-3184 16:15-0400Systolic blood xltkcpum594 mm[Hg]Mukul Law DO Work Phone: [phone] [place], [place] [address]Vsxkwwbjes96-03-0386 15:15-0400Body mass index (BMI) [Ratio]33.57 kg/m2[facility]04-24-2025 15:15-0400Body fygcth59.35 kgCr[facility]04-24-2025 15:15-0400Diastolic blood tfwrtcxe14 mm[Hg][facility]04-24-2025 15:15-0400Systolic blood uyffqgrz328 mm[Hg][facility]12-23-2024 16:25-0500Body mass index (BMI) [Ratio]32.93 kg/i7Zqnxi Law DO Work Phone: [phone])[phone] [place], [place] [address]Fzowuifodu33-65-7956 16:25-0500Body kdgtib78.53 kgCorey Law DO Work Phone: [phone] [place], [place] 1500302-08-2023 03:06-0500Body caulms03.8024 kgDR MUKULVicki YOO .[facility] HospitalComment on above:Performed By: #### AFPMAT #### [facility] [address] [place] [address] Dr. Yilan Springer Encounters Encounter DateEncounter TypeCare ProviderFacilityStart: 05-21-2025 End: 59-37-9949Jxvqrikot Result EncounterCorey Law DO Work Phone: NOM[facility] External Department UnsolicitedStart: 05-21-2025 End: 11-40-5140Moovvjfvw Result EncounterCorey Law DO Work Phone: noms External Department UnsolicitedStart: 05-14-2025 End: 09-94-6252tnhswuntnuXVKPD FAZIONot AvailableStart: 05-14-2025 End: 81-38-7380Ptctxrjz flow sheetCorey Law DO Work Phone: NOGI [place] [facility]BGYNComment on above:Third trimester ([facility]); 34 weeks gestation of ([facility]); Insulin controlled gestational diabetes mellitus (GDM) during , antepartum ([facility]); Gestational diabetes mellitus (GDM), antepartum, gestational diabetes method of control unspecified([facility])Start: 05-14-2025 End: 95-18-0700Qzqbbr flowsheetCorey Law DO Work Phone: N[facility] [place] [facility]BGYNStart: 05-14-2025 End: 76-73-0286Pqjmbs flowsheetCorey Law DO Work Phone: NOVY [place] [facility]BGYNStart: 04-30-2025 End: 05-40-9883whavpgwtjcHRKMMNFD EBERLYNot AvailableStart: 04-30-2025 End: 07-31-2199Alacsmsg flow sheetKristina Guillermo DENTAL CHAIR ASSEMBLER Work Phone: NOSN [place] OBGYNComment on above:Third trimester ([facility]); 32 weeks gestation of ([facility])Start: 04-30-2025 End: 61-11-2713Tvhktd flowsheetCeasar Li DENTAL CHAIR ASSEMBLER Work Phone: NOOZ [facility] OBGYNStart: 04-30-2025 End: 49-97-9581Zxfift flowsheetKristina Guillermo DENTAL CHAIR ASSEMBLER Work Phone: NOAO [facility] OBGYNStart: 04-30-2025 End: 91-15-5784Ohbfdspkh Result EncounterMukul Foy DO Work Phone: noms External Department UnsolicitedStart: 04-14-2025 End: 42-46-0682ocyctyxlxyVTW RAMHORTENCIANot AvailableStart: 04-14-2025 End: 83-74-9678Djwjwinz flow sheetRegina RUIZ Work Phone: noms [place] OBGYNComment on above:Third trimester ([facility]); 30 weeks gestation of ([facility])Start: 04-14-2025 End: 04-28-8135Fhjjsp Darek RUIZ Work Phone: N[facility] [place] [facility]BGYNStart: 04-14-2025 End: 29-24-9147Nrasvu Darek RUIZ Work Phone: noms [place] [facility]BGYNStart: 04-05-2025 End: 02-62-7531Szqqcdpam Result EncounterAmy Oralia RUIZ Work Phone: noms External Department UnsolicitedStart: 04-05-2025 End: 58-66-1148Owfsrvzsa Result EncounterRegina Oralia RUIZ Work Phone: noms External Department UnsolicitedStart: 04-03-2025 End: 90-44-8011qrbbjjmchkRSM RAMEYNot AvailableStart: 04-03-2025 End: 62-24-7689Supirkqu flow Chuy RUIZ Work Phone: NOMS Heri OBGYNComment on above:28 weeks gestation of ([facility]); Third trimester ([facility]); Dizziness; Gestational diabetes mellitus (GDM), antepartum, gestational diabetes method of control unspecified([facility]); History of miscarriage; Anemia, unspecified type; UTI symptomsStart: 04-03-2025 End: 74-73-1634Qqjddy Darek RUIZ Work Phone: NOMS [facility] OBGYNStart: 04-03-2025 End: 57-66-7197Atraay flowsheetAmy Oralia PA Work Phone: NOMS [place] OBGYNStart: 03-12-2025 End: 65-84-2185wvwstfewlnWGNGR FAZIONot AvailableStart: 03-12-2025 End: 45-92-7157Ojqbxzov flow sheetCorey Law DO Work Phone: NOMS [place] OBGYNComment on above:25 weeks gestation of ([facility]); Second trimester ([facility]); Gastroesophageal reflux disease without esophagitisStart: 03-12-2025 End: 55-54-9101Tnqqdf flowsheetCorey Law DO Work Phone: N[facility] [place] [facility]BGYNStart: 03-12-2025 End: 24-81-2419Fsfmwe flowsheetCorey Law DO Work Phone: N[facility] [place] [facility]BGYNStart: 02-26-2025 End: 16-40-0871htbjzlagfeWOAYH FAZIONot AvailableStart: 02-26-2025 End: 66-12-2264Cdpmgvcw flow sheetCorey Law DO Work Phone: NOMS [place] OBGYNComment on above:23 weeks gestation of ([facility]); Elevated blood sugar level; Gastroesophageal reflux disease without esophagitisStart: 02-26-2025 End: 46-98-7678Awtlvk flowsheetCorey Law DO Work Phone: NOMS [place] [facility]BGYNStart: 02-26-2025 End: 35-17-1092Gzmcdq flowsheetCorey Law DO Work Phone: NOMS [place] OBGYNStart: 02-11-2025 End: 73-97-5943Ykahhpaa flow sheetCorey Law DO Work Phone: NOMS BCP OBComment on above:Second trimester ([facility]); 20 weeks gestation of ([facility])Start: 02-11-2025 End: 86-89-8555sicxbrstucRPQYN FAZIONot AvailableStart: 01-15-2025 End: 56-99-8752rpmajmdqbzRLFVM FAZIONot AvailableStart: 01-15-2025 End: 94-31-3498Japrhpxa flow sheetCorey Law DO Work Phone: noms [facility] OBComment on above:Second trimester ([facility]); 17 weeks gestation of ([facility]); Vaginal discharge; STD exposure; Screening, , for anatomic survey ([facility]); Gastroesophageal reflux in ([facility]); Gestational diabetes mellitus (GDM), antepartum, gestational diabetes method of control unspecified([facility])Start: 01-15-2025 End: 86-01-8912Lmzhie flowsheetCorey Law DO Work Phone: noms BCP OBStart: 01-15-2025 End: 28-24-3941Kllbir flowsheetCorey Law DO Work Phone: noms BCP OBStart: 01-15-2025 End: 57-57-5260Yyxzathj Result EncounterAmy Oralia RUIZ Work Phone: noms External Department UnsolicitedStart: 01-07-2025 End: 90-83-1459azojiojefkMCBQXCHallie Lamas [facility] HospitalStart: 01-07-2025 End: 25-70-1066Mxcmswxpgr hospital visit by Kayden Steele CNP Work Phone: [facility] LABStart: 12-23-2024 End: 58-51-0536Dvcutixhc Result EncounterCorey Law DO Work Phone: noms External Department UnsolicitedStart: 12-23-2024 End: 87-37-8657Fcjsgroex Result EncounterCorey Law DO Work Phone: noms External Department UnsolicitedStart: 12-20-2024 End: 00-68-6606zgyqvosixfDQKPFTHallie Lamas [facility] HospitalStart: 12-20-2024 End: 49-91-3461Mfxbzfyjzn hospital visit by [facility] UltrasoundComment on above:Subchorionic hematoma, antepartum, first trimester, not applicable or unspecified fetusStart: 12-18-2024 End: 45-81-0421nvpufugehkISXWV FAZIONot AvailableStart: 12-18-2024 End: 11-78-2917Yksookpy flow sheetCorey Law DO Work Phone: noms BCP OBComment on above:Second trimester ; 12 weeks gestation of ; Subchorionic hematoma in first trimester, single or unspecified fetus; Diabetes mellitus screeningStart: 12-18-2024 End: 72-28-2502Ueeptl flowsheetCorey Law DO Work Phone: noms BCP OBStart: 12-18-2024 End: 58-76-6853Jwuczr flowsheetCorey Law DO Work Phone: noms BCP OBStart: 11-14-2024 End: 82-67-3215Brivyt outpatient visit 5 minutesNoms Bcp Ob Law NurseNOMS BCP OBComment on above:GA: 9l2sMwcuo: 11-14-2024 End: 82-16-5855femucozoevVMRKO FAZIONot AvailableStart: 07-15-2024 End: 90-02-7098Xlrujyj encounter procedureCorey Law DO Work Phone: noms HealthcareStart: 07-15-2024 End: 75-96-5528Nqcjkqzb preventive med est patient 18-39 yrsCorey Law DO Work Phone: noms BCP OBComment on above:Well woman exam with routine gynecological examStart: 07-15-2024 End: 29-04-7933qhtimacafsPHWPU FAZIONot AvailableStart: 07-15-2024 End: 88-71-0215Nsexmndnu Result EncounterCorey Law DO Work Phone: noms External Department UnsolicitedStart: 07-15-2024 End: 66-81-2910Xiwoufake Result EncounterCorey Law DO Work Phone: noms External Department UnsolicitedStart: 05-20-2024 End: 85-44-8836iuqywkahflEUJXZCShanda Nath HospitalStart: 05-20-2024 End: 02-84-7818Dopntjcfba hospital visit by Kayden Steele CNP Work Phone: mthz LaboratoryComment on above:Elevated liver enzymes; Mixed hyperlipidemiaStart: 03-06-2024 End: 79-70-1598hfhloryxkgFFYSQAHallie Lamas [facility] HospitalStart: 02-16-2024 End: 17-79-3189qvwokiuxdrVHRDPWHallie Lamas [facility] Hospitaltart: 08-06-2023 End: 83-50-5728ljgsvybtqnYkyrlfxr:[facility]: 07-11-2023 End: 42-86-3148nrwwsmxelzJJIZ [facility] Systemt[facility]: 03-20-2023 End: 05-80-0944cmopfcbkzfUIFAH [facility] Hospitalt[facility]: 12-17-2022 End: 91-69-5101tqplugcwqwPX MUKUL LAW .Facility:X3Jitci: 12-12-2022 End: 17-84-3933gjasrlwywvWW KYLIE SEYMOUR .Facility:B0Cgcyj: 12-10-2022 End: 67-46-2371bmahlmdpeiPE MUKUL LAW .Facility:M9Knvpj: 10-31-2022 End: 27-02-0049flmikylsxaFJ MUKUL LAW .Facility:I9Brlcq: 10-22-2022 End: 16-21-0402ixuxqomwkxYRM RAMEY .Facility:K9Xafrw: 10-15-2022 End: 62-93-7643osjucdualrRO MUKUL LAW .Facility:X4Mkilm: 09-12-2022 End: 89-90-1028jhvzcnjyocSG MUKUL ALW .Facility:D8Ykcdv: 09-10-2022 End: 13-59-6183suewxjwmbcRK MUKUL LAW .Facility:I5Cxrqb: 08-29-2022 End: 43-34-7564emluufijtiXO MUKUL LAW .Facility:P0Hdqzo: 08-01-2022 End: 30-84-9135Ojyqsfryha hospital visit by DEGANGA LaboratoryStart: 07-04-2022 End: 58-36-6397jmyqbgnyvnEW MUKUL LAW .Facility:I8Njqkq: 06-23-2022 End: 16-72-1713sidongsfstQB YELENA V WESTFacility:A7Zdyds: 06-09-2022 End: 09-93-9530iiqgdesryyLQ MUKUL LAW .Facility:V8Gqnrg: 06-02-2022 End: 62-94-0670Eqvdwlyrov hospital visit by Kayden Steele CNP Work Phone: mthz LaboratoryStart: 04-18-2022 End: 27-28-5159vxmhkavtzfQU MUKUL LAW .Facility:M6Rfdva: 09-23-2021 End: 00-81-7996ujgvbjxjzrVLKOX CHE[facility]Start: 09-08-2021 End: 33-38-3162murkvfshibCASFA R FAZIORiverside Mosque HospitalStart: 08-25-2021 End: 05-48-8013zyocnqfzkqWGCJL R FAZIORiverside Mosque HospitalStart: 08-19-2021 End: 43-03-3195ckadkctrcbTTZDW R FAZIORiverside Mosque HospitalStart: 08-10-2021 End: 78-15-7125Ktxmkpsycm hospital visit by Kayden Steele CNP Work Phone: mthz LaboratoryComment on above:AmenorrheaStart: 11-25-2020 End: 45-60-9251Ghfevxoalu hospital visit by [facility] RadiologyComment on above:Frequent UTIStart: 05-04-2020 End: 57-04-1030Wafoxwqsrc hospital visit by Kayden Chapman LaboratoryComment on above:Encounter for screening for HIV; Other fatigue; Wellness examinationStart: 03-03-2020 End: 12-12-7944Kynanktodj hospital visit by Brayden Dickinson LaboratoryComment on above:Screening for cervical cancer; Encounter for annual routine gynecological examination Procedures DateProcedureProcedure DetailPerforming ClinicianStart: 78-36-7523RJ OB BPP W NON-STRESSCorey Law DO Work Phone: Start: 02-12-1450Mfjff dip stick/tablet rgnt non-auto w/o micrscpCorey Law DO Work Phone: Start: 05-43-4454KI OB BPP W NON-STRESSCorey Law DO Work Phone: Start: 45-37-2811Somtl dip stick/tablet rgnt non-auto w/o micrscpKristina Guillermo CHRISTOPHER Work Phone: Start: 19-60-3760Rklhb dip stick/tablet rgnt non-auto w/o micrscpAmy Oralia RUIZ Work Phone: Start: 53-18-2402QB OB GROWTHRegina RUIZ Work Phone: Start: 20-04-5532BIK CBC WITH AUTO DIFFRegina RUIZ Work Phone: Start: 29-07-4052Mfimj dip stick/tablet rgnt non-auto w/o micrscpAaric RUIZ Work Phone: Start: 67-20-8070Ulnkw dip stick/tablet rgnt non-auto w/o micrscpCorey Law DO Work Phone: Start: 10-24-2381Ytnjv dip stick/tablet rgnt non-auto w/o micrscpCorey Law DO Work Phone: Start: 63-44-9437Obcpg dip stick/tablet rgnt non-auto w/o micrscpCorey Law DO Work Phone: Start: 10-18-2575PWGTBTSME VAGINITIS (HTRX)Regina RUIZ Work Phone: Start: 14-61-6963Ktivx count complete automatedAmy L Oralia CAMPOS Work Phone: Start: 39-15-5234KD OB LESS THAN 14 WEEKS SINGLE OR FIRST GESTATIONCorey Law DO Work Phone: Start: 63-71-5033Irfym dip stick/tablet rgnt non-auto w/o micrscpCorey Law DO Work Phone: Start: 22-74-3552Hvydk dip stick/tablet rgnt non-auto w/o micrscpCorey Law DO Work Phone: Start: 04-82-6243USE,APTIMA HPV,AGE GDLNCorey Law DO Work Phone: Start: 76-56-9129Sghuihkoopr observation [Identifier] in Cervix by Cyto Leonora Rodriguez CORE MAKER - [facility] Work Phone: Start: 35-76-6039Gvdyy Nancy Rodriguez CORE MAKER - [facility] Work Phone: Start: 53-52-1118Jqknhibvcfpfp metabolic Nancy Rodriguez CORE MAKER - [facility] Work Phone: Start: 53-40-9480Zshxzzaczxh observation [Identifier] in Cervix by Cyto stainDegoran RoomStart: 51-21-1230Tkcrxabb Navid Barroso CORE MAKER - [facility] Work Phone: Start: 78-79-6737Ztfzmnqgeabw chorionic quantitative Mukul Bill Foy MD Work Phone: Start: 11-47-9393Rsxsmcbdxqkm chorionic quantitative Berto Live CORE MAKER - [facility] Work Phone: Start: 91-01-5084Zk retroperitoneal real time w/image completeBethrupinder Ricks CORE MAKER - [facility] Work Phone: Start: 86-03-6323Jocygbeq hiv-1&hiv-2 single result Ynes Rodriguez Work Phone: Start: 78-31-7526Zdfpe of thyroid stimulating hormone tshYnes Rodriguez Work Phone: Start: 22-05-1402Iuumw metabolic panel calcium total Ynes Rodriguez Work Phone: Start: 07-62-2424Zvxnw count complete automatedYnes Rodriguez Work Phone: Start: 61-00-0712Brykingcule observation [Identifier] in Cervix by Cyto stainYnes Rodriguez CORE MAKER - [employer]ILRO[employer] INSPECT[employer] Work Phone: Plan of Treatment DateCare ActivityDetailAuthorStart: 90-25-1472Lpnrzjfvz for malignant neoplasm of cervixPap smearBon [facility] [place] [facility] HospitalStart: 31-69-8411Krnfpkpex for malignant neoplasm of cervixPap smearBon [facility] [place] [facility] HospitalStart: 08-07-2025 Depression ScreenDepression ScreenAugusta HealthStart: 07-28-2025 End: 28-47-9209Gqgegbr encounter procedureNOMS BCP OBStart: 05-28-2025 End: 50-70-8391Nupimts encounter mwlwbtgog04/05/2025 2:30 PM EST Routine NOM[facility] Heri SANTO [address] [place], [id number] Regina Barton PA [address] [place] [address] NOMS Heri OBGYNStart: 05-28-2025 End: 89-33-1717Tygdfkxofzip / ancillary services pavfepgioy27/05/2025 2:00 PM EST Ancillary Procedure [facility] Her[facility] SANTO [address] [place] [address] NOMS Heri OBGYNStart: 25-02-9046Afxyt panelLipids [facility] HealthStart: 05-14-2025 End: 92-68-2970Wgmdyps encounter bptyapmwk01/22/2025 2:50 PM EDT Routine [facility] [place] [facility] [address] [place], [id number] Mukul Foy DO [address] [place], [place] [id number] NOMS Heri OBGYNStart: 05-14-2025 End: 26-10-8456SR for pregnancyUS OB follow up transabdominal approach Imaging Routine Insulin controlled gestational diabetes mellitus (GDM) during , antepartum ([facility]) Expected: 05/14/2025, Expires: 09/14/2025[facility] Work Phone: comment on above:Expected: 05/14/2025, Expires: 09/14/2025Start: 05-14-2025 End: 03-43-2756Ostogpb encounter hsqugjstw13/22/2025 11:40 AM EDT Office Visit [facility] [address] Melissa Hendricks [place] [address] Ynes Rodriguez, CORE MAKER - RAILROAD INSPECTOR [address] [place] [address] 6 month f/[facility] CareComment on above:6 month f/uStart: 04-30-2025 End: 95-95-7879Jwmmbbt encounter jfuihedjz59/08/2025 3:00 PM EDT Routine [facility] [address] [place], [id number] Ceasar Li, ASHWIN [address] [place] [id number] NOMS Heri OBGYNStart: 04-14-2025 End: 76-26-2118Ayyqlet encounter /22/2025 3:20 PM EDT Routine [facility] [address] [place], [id number] Regina Barton PA [address] [place] [address] NOMRenzo Heri OBGYNStart: 04-03-2025 End: 04-23-9106Maglomy encounter piitoqldt26/11/2025 3:30 PM EDT Routine NOMRenzo [place] OBCIARANN [address] [place], [id number] Regina Barton PA [address] [place] [address] NOMS [place] [facility]BGYNStart: 04-03-2025 End: 59-25-7814TQY W Auto Differential panel - BloodCBC and differential Lab Routine Dizziness Anemia, unspecified type Expected: 04/03/2025 (Approximate), Expires: 04/03/2026[facility] HealthcareComment on above:Expected: 04/03/2025 (Approximate), Expires: 04/03/2026Start: 04-03-2025 End: 56-11-0853WK biophysical profile w non stress testUS biophysical profile w non stress test Imaging Routine 28 weeks gestation of ([facility]) Third trimester ([facility]) Gestational diabetes mellitus (GDM), antepartum, gestational diabetes method of control unspecified ([facility]) History of miscarriage Expected: 04/03/2025 (Approximate), Expires: 10/01/2025[facility] HealthcareComment on above:Expected: 04/03/2025 (Approximate), Expires: 10/01/2025Start: 04-03-2025 End: 28-82-4939GY for pregnancyUS OB follow up transabdominal approach Imaging Routine 28 weeks gestation of ([facility]) Third trimester ([facility]) Gestational diabetes mellitus (GDM), antepartum, gestational diabetes method of control unspecified ([facility]) History of miscarriage Expected: 04/03/2025, Expires: 08/03/2025[facility] Work Phone: comment on above:Expected: 04/03/2025, Expires: 08/03/2025Start: 22-80-2766CIBRH-19 Vaccine ( season)COVID-19 Vaccine ( season)NOMS HealthcareStart: 70-23-8929Gciwmgmmo vaccinationNOMS HealthcareStart: 12-28-3575Iwcczdjmz vaccinationFlu vaccine (Season Ended)[facility] HealthStart: 02-11-2025 End: 11-01-7028Exevkhl encounter vqdbyoedg95/22/2025 2:10 PM EDT Routine [facility] [address] [place] [address] Mukul Foy, DO [address] [place] [address] NOMS BCP OBStart: 02-11-2025 End: 91-48-3028Eepxtfqtgkao / ancillary services bpmjagrqzq25/22/2025 1:00 PM EDT Ancillary Procedure [facility] [place] [address] [place] [phone] BCP OBStart: 01-15-2025 End: 47-07-4312Xdszgdz encounter ziutldenf14/25/2025 3:50 PM EDT Routine [facility] [address] [facility] [address] Mukul Foy, DO [address] [place] [address] NOMS BCP OBStart: 01-15-2025 End: 58-84-4803Kqmgd fetoprotein, maternalAlpha fetoprotein, maternal Lab Routine Second trimester ([facility]) 17 weeks gestation of ([facility]) Expected: 01/15/2025 (Approximate), Expires: 07/17/2025[facility] Comment on above:Expected: 01/15/2025 (Approximate), Expires: 07/17/2025Start: 01-15-2025 End: 89-27-9811IZ for pregnancyUS OB 14+ weeks anatomy scan Imaging Routine Screening, , for anatomic survey ([facility]) Expected: 01/15/2025, Expires: 04/17/2025[facility] HealthcareComment on above:Expected: 01/15/2025, Expires: 04/17/2025Start: 12-18-2024 End: 92-58-2243Fglwlyp encounter xgbolqrqw03/28/2025 3:40 PM EDT Routine [facility] OB [address] [place] [address] Mukul Foy, DO [address] [place] [address] NOMS BCP OBStart: 12-18-2024 End: 89-66-3346MXP panel - Blood by Automated countCBC Lab Routine Diabetes mellitus screening Expected: 12/18/2024 (Approximate), Expires: 12/18/2025[facility] Work Phone: comment on above:Expected: 12/18/2024 (Approximate), Expires: 12/18/2025Start: 12-18-2024 End: 20-36-8273Ujjqzumibkx of glucose 1 hour after glucose challenge for glucose tolerance testGlucose tolerance, 1 hour Lab Routine Diabetes mellitus screening Expected: 12/18/2024 (Approximate), Expires: 12/18/2025[facility] HealthcareComment on above:Expected: 12/18/2024 (Approximate), Expires: 12/18/2025Start: 12-18-2024 End: 52-26-5289MV Pelvis transvaginalUS OB transvaginal Imaging Routine Subchorionic hematoma in first trimester, single or unspecified fetus Expected: 12/18/2024, Expires: 03/20/2025[facility] Work Phone: comment on above:Expected: 12/18/2024, Expires: 03/20/2025Start: 11-14-2024 End: 78-26-4704BVN/RhABO/Rh Lab Routine Missed menses , unspecified gestational age Expected: 11/14/2024 (Approximate), Expires: 11/14/2025N[facility]S HealthcareComment on above:Expected: 11/14/2024 (Approximate), Expires: 11/14/2025Start: 11-14-2024 End: 10-61-0924Kcrve type and Indirect antibody screen panel - BloodType and screen Lab Routine Missed menses , unspecified gestational age Expected: 11/14/2024 (Approximate), Expires: 11/14/2025[facility] HealthcareComment on above:Expected: 11/14/2024 (Approximate), Expires: 11/14/2025Start: 11-14-2024 End: 91-23-4444Xtwng of abuse panel - Urine by Screen methodRapid drug screen, urine Lab Routine , unspecified gestational age Encounter for supervision of normal first in first trimester Expected: 11/14/2024 (Approximate), Expires: 11/14/2025[facility] HealthcareComment on above:Expected: 11/14/2024 (Approximate), Expires: 11/14/2025Start: 11-06-2024 End: 55-65-1720CF Pelvis transvaginalUS OB transvaginal Imaging Routine Missed menses Expected: 11/06/2024, Expires: 02/05/2025[facility] Work Phone: comment on above:Expected: 11/06/2024, Expires: 02/05/2025Start: 10-16-2024 End: 82-59-7772Ujkxlaj encounter pajjloxbi13/26/2025 1:40 PM EDT Office Visit [address] [place] [address] Ynes Rodriguez, CORE MAKER - RAILROAD INSPECTOR [address] [place] [address] [address] [place] [address] [facility] CareComment [facility] above:WellnessStart: 01-76-9339Pjwfuiwmcz ScreenDepression ScreenBon Secours Adena Regional Medical CenterStart: 06-04-2024 End: 28-34-9181Yilrmlm encounter bzhudmgye45/12/2024 11:45 AM EST Office Visit [address] [place] [address] Jose Cruz Raza MD [address] [facility] [place] [address] wt [facility] Primary CareComment on above:wt managementStart: 05-22-2024 End: 98-55-9217Rydtujx encounter sashcdsoj60/30/2024 11:00 AM EDT Office Visit [facility] [address] [place] [address] [address] [place] [address] Ynes Rodriguez, CORE MAKER - RAILROAD INSPECTOR [address] [facility] [address] [place] [address] LFT + HLD f/u(RS 10/17/23 appt)[facility] Primary CareComment on above:LFT + HLD f/u(RS 10/17/23 appt)Start: 14-48-2388HQGNJ-19 Vaccine ( season)COVID-19 Vaccine ( season)[facility]: 75-02-4412UCELN-19 Vaccine ( season)COVID-19 Vaccine ( season)[facility]: 23-99-8743Uksqejovw vaccinationInfluenza Vaccine (#1)[facility] CenterStart: 97-11-2465Qgmjwgypj vaccinationFlu vaccine (#1)[facility] HealthStrussell: 76-40-4383Awrgjhdcb for malignant neoplasm of cervixAdena Regional Medical CenterStart: 29-17-4713Ykfshvgzkt ScreenDepression ScreenBON MERCY HEALTH – THE JEWISH HOSPITALStrussell: 07-11-2022 End: 34-20-7493Xzqctsp encounter yrhdhwljr78/19/2022 Office Visit Primary Care Ynes Rodriguez, CORE MAKER - RAILROAD INSPECTOR [address] [place] [address] [facility] Primary Care Start: 05-19-2022 End: 23-52-3535Osgpzbl encounter bnlcbrcca49/27/2022 Office Visit Obstetrics and Gynecology Berto iLve, CORE MAKER - CNM [address] [place] [address] [facility] OBSTETRICS & [facility]YNECOLOGY [facility] 03-18-2022 End: 49-54-7016Rxwmoha encounter hqhifygcj18/26/2022 Office Visit Family Medicine Ynes Rodriguez, CORE MAKER - RAILROAD INSPECTOR [address] [place] [address] [facility] FAMILY MEDICINE [facility]: 55-11-2244Yzdevcztq C screeningHepatitis C screenMer HealthComment on above:Postponed from 1998 (Patient Refused)Start: 37-41-7059Zltiqjiqx vaccinationFlu vaccine (#1)[facility]ITALStart: 49-48-3785Bletzfzae for Chlamydia trachomatisAdena Regional Medical CenterStart: 09-24-2021 Influenza vaccinationFlu vaccine (Season Ended)[facility] Work Phone: comment on above:Postponed from 03/24/2021 (Patient Refused)Start: 34-31-6369Uwdrveoqbq MonitoringDepression MonitoringAdena Regional Medical Center Start: 81-73-2742VNLEB-19 Vaccine (3 - Booster for Pfizer series)COVID-19 Vaccine (3 - Booster for Pfizer series)[facility]: 54-84-3854UKaD/Tdap/Td vaccine (7 - Td or Tdap)DTaP/Tdap/Td vaccine (7 - Td or Tdap)[facility]: 93-56-5047UQbU/Tdap/Td vaccine (7 - Td)DTaP/Tdap/Td vaccine (7 - Td)[place], [place]: 49-45-1627Fclpccyfi vaccinationFlu vaccine (#1)[facility] Start: 20-01-5234Jsnvqbnso for Chlamydia trachomatisChlamydia screenMercy Health Allen Hospitalart: 22-80-9324ALVXW-19 Vaccine (3 - Booster for Pfizer series) COVID-19 Vaccine (3 - Booster for Pfizer series)[facility]ENTERStart: 02-09-2021 End: 74-63-0925Phiedhg encounter sobvdwlnz55/20/2021 Office Visit Family Medicine Ynes Rodriguez, CORE MAKER - RAILROAD INSPECTOR [address] [place] [address] [phone] [facility] FAMILY MEDICINE [facility]: 11-30-2020 End: 78-01-5574Ujzylto encounter bckjhtfly88/10/2021 Office Visit Urology Chris Moe MD [address] [facility] [address], [address] [place], [place] [phone] [facility] UROLOGY [facility]: 05-28-2020 End: 25-13-9623Ucxumbpiojgc14/05/2020 Telemedicine Family Medicine Ynes Rodriguez, CORE MAKER - RAILROAD INSPECTOR [address] [place] [address] [phone] [facility] Start: 00-77-1173Icqpiegev vaccinationFlu vaccine (#1)[facility]: 58-33-6269Jqnltneyu for Chlamydia trachomatisChlamydia [place], KYStrussell: 65-56-2373Jpyolwkhb for malignant neoplasm of cervixCervical cancer [facility]-Philadelphiaart: 40-77-4202Sqtvbycla B Vaccines (1 of 3 - 19+ 3- dose series)Hepatitis B Vaccines (1 of 3 - 19+ 3-dose series)[facility] Start: 21-64-2439Eprymagba C screeningHepatitis C screenBON MERCY [facility] Start: 76-66-4154CTWZC-19 Vaccine (1)COVID-19 Vaccine (1)[facility] Work Phone: start: 37-44-4108SNT screeningHIV [place], KYStrussell: 51-39-9969TZO Vaccines (1 - 3-dose series)HPV Vaccines (1 - 3-dose series)[facility] HealthcareStart: 62-73-3795Wktyfnf of varicella vaccinationVaricella Vaccines (1 of 2 - 13+ 2-dose series)[facility] HealthcareStart: 2005 DTaP/Tdap/Td Vaccines (1 - Tdap)DTaP/Tdap/Td Vaccines (1 - Tdap)[facility] Start: 96-28-6922SYK Vaccines (1 of 1 - Standard series)MMR Vaccines (1 of 1 - Standard series)[facility] HealthcareStart: 19-36-5670Orylurxuh C screeningHepatitis C screenMercy Health Work Phone: bacteria identified in Urine by CultureUrine culture Microbiology Routine Missed menses Ordered: 11/14/2024[facility] HealthcareComment on above:Ordered: 5Bacteria identified in Urine by CultureUrine culture Microbiology Routine UTI symptoms Ordered: 04/03/2025[facility] HealthcareComment on above:Ordered: 04/03/2025 End: 03-03-2020C.trachomatis N.gonorrhoeae DNA, Thin PrepC.trachomatis N.gonorrhoeae DNA, Thin Prep Microbiology Routine Encounter for annual routine gynecological examination 1 Occurrences starting 03/03/2020 until 03/03/2020 [facility], KYComment on above:1 Occurrences starting 03/03/2020 until 03/03/2020C.trachomatis N.gonorrhoeae DNA, Thin PrepC.trachomatis N.gonorrhoeae DNA, Thin Prep Microbiology Routine Encounter for annual routine gynecological examination 03/03/2020 5:08 PM [facility], KYCBC W Auto Differential panel - BloodCBC and differential Lab Routine Missed menses , unspecified gestational age Ordered: 11/14/2024[facility] HealthcareComment on above: Ordered: 5CHLAMYDIA TRACHOMATIS (GENITO/STI)CHLAMYDIA TRACHOMATIS (GENITO/STI) Lab Routine STD exposure Ordered: 01/15/2025[facility] HealthcareComment on above:Ordered: 5Cytology Cervical or vaginal smear or scraping study Pap Smear Pathology and Cytology Routine Well woman exam with routine gynecological exam Ordered: 07/15/2024[facility] Work Phone: comment on above:Ordered: 07/15/2024 End: 65-24-1533Jyavhmbuthtge procedure, preparation of smear, genital sourcePAP SMEAR Lab Routine Screening for cervical cancer 1 Occurrences starting 03/03/2020 until 03/03/2020[facility], WIComment on above:1 Occurrences starting 03/03/2020 until 03/03/2020Hemoglobin [...] and Cytology Routine Vaginal discharge Ordered: 01/15/2025 [facility] Healthcare Work Phone: comment on above:Ordered: 01/15/2025US Pelvis transvaginalUS OB transvaginal Imaging Routine Missed menses 11/14/2024 2:38 PM [facility] End: 47-04-6604Rh uterus 14 wk transabdl 07/24 [facility] [employer] Work Phone: Comment on above:1 Occurrences starting 12/20/2024 until 12/20/2024 Immunizations Immunization DateImmunizationNotesCare OlxcnudcZmdkvnjb47-77-2737HARTG-09, Pfizer Purple top, DILUTE for use, 12+ yrs, 30mcg/0.3mL doseHannah Rodriguez CORE MAKER - RAILROAD INSPECTOR Work Phone: [facility] Hello Chair Phone: [phone]-45, Pfizer Purple top, DILUTE for use, 12+ yrs, 30mcg/0.3mL doseHannah Rodriguez CORE MAKER - RAILROAD INSPECTOR Work Phone: [facility] Medical CenterHxlmsz48-16-3824ffowx papilloma virus vaccine, quadrivalentAshtabula General Hospital, HV08-14-2043rldfl papilloma virus vaccine, quadrivalentAshtabula General Hospital, EK91-35-1733ufzwh papilloma virus vaccine, quadrivalentAshtabula General Hospital, [place] 66-90-1160lbrzncbfxhvpc polysaccharide (groups A, C, Y and W-135) diphtheria toxoid conjugate vaccine (MCV4P)[facility], FC94-60-1692 meningococcal ACWY vaccine, unspecified formulationAshtabula General Hospital, DO28-21-9396Roymxsven A Ped/Adol (Vaqta)[facility], [place] 81-13-6252trjqgtrcx A vaccine, pediatric/adolescent dosage, 2 dose schedule 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 Work Phone: [phone] virus vaccineAshtabula General Hospital, HS58-74-4376vdqrinravxmdr polysaccharide (groups A, C, Y and W-135) diphtheria toxoid conjugate vaccine (MCV4P)[facility], [place] 95-05-0677avzmtrgnar, tetanus toxoids and acellular pertussis vaccineAshtabula General Hospital, IJ79-65-1343hbeoxpc, mumps and rubella virus vaccine [facility], RG20-12-0966ulophukubx vaccine, inactivated [facility], HL06-45-4768runbfyrutl, tetanus toxoids and acellular pertussis vaccineAshtabula General Hospital, BB52-06-4170 haemophilus influenzae type b vaccine, PRP-T conjugateAshtabula General Hospital, TG55-75-8998xyqevydhjn vaccine, inactivatedAshtabula General Hospital, TF25-75-8343dqkmenx, mumps and rubella virus vaccineNorwalk Memorial Hospital, YV38-45-8673wgaozlkgf virus vaccineAshtabula General Hospital, VS80-59-3711ejbiuyjna B vaccine, pediatric or pediatric/adolescent dosageAshtabula General Hospital, ZM24-85-7922zaxkyjyfso, tetanus toxoids and acellular pertussis vaccineAshtabula General Hospital, GK68-67-8744 haemophilus influenzae type b vaccine, PRP-T conjugateAshtabula [facility] Hospital, BE48-62-5554zlnhzukpmn, tetanus toxoids and acellular pertussis vaccineAshtabula General Hospital, OV38-26-8321dadqbsvbqlv influenzae type b vaccine, PRP-T conjugateAshtabula General Hospital, VA04-85-2674 poliovirus vaccine, inactivatedAshtabula General Hospital, RA34-97-1191 haemophilus influenzae type b vaccine, PRP-T conjugateAshtabula General Hospital, UP35-94-1111wbnsghpmnq vaccine, inactivatedAshtabula General Hospital, OH34-77-4977laiqmzolfq, tetanus toxoids and acellular pertussis vaccineGood Samaritan Hospital03-18-1999hepatitis B vaccine, pediatric or pediatric/adolescent dosageAshtabula General Hospital, JX28-56-8794 hepatitis B vaccine, pediatric or pediatric/adolescent dosageNorwalk Memorial Hospital, [place] Payers DatePayer CategoryPayerPolicy [id number] [facility] [id number] 2022-Present [address] [place] [address] [place] [address] [id number] Health InsuranceMEDICAL MUTUAL Member Subscriber Plan / Payer (Effective 2022-Present) Name: Vinny Downey Relation to Subscriber: Spouse Name: Nasreen Abhishek Linda Date of : 1996 Address: [address] [place] [id number] Payer ID: Not on file Type: Not on file Address: [facility] [address] [place] [id number]8-79-8947Eepyech [id number] 840.1.661253.3.5[id number] 09.08.830.1.251052.3.5[id number] 2.16.840.1.012918.3.57[id number] 2.16.840.1.047285.3.579.[id number] 2.16.840.1.764948.3.579.2.20661-29-8397Etogrgx6844373 2.16.840.1.874004.3.579.2.92811-82-4414Ggvdsaa4342960 2.16.840.1.045492.3.57[id number] 2.840.1.131453.3.579.2.29035-29-2213Eoawgcj2621085 2.840.1.512529.3.579.2.08361-68-9337Vfyiozd7408266 2.840.1.890663.3.579.2.06372-96-1661Zyktowj7351672 2.840.1.758589.3.579.2.47552-29-5698Luwqkld7970773 2.840.1.554445.3.579.2.22005-78-6929Qrkzhnl9033823 2.840.1.884164.3.579.2.49854-14-7847Kwhnuao4224851 2.840.1.731414.3.579.2.92714-32-3839Qfhavao5127651 2.840.1.025106.3.579.2.41072-99-2036Gdtlyuf8155165 2.840.1.128431.3.57[id number] 2.16.840.1.058072.3.579.2.52428-11-0022Mfwjgri3675011 2.16840.1.373698.3.579.2.84294-45-4025Rfsegrh43376968 2.16.840.1.298188.3.579.2.19169-59-2154Ukfnjzj23224477 2.16.840.1.670328.3.579.2.93883-27-6272Uhouqzl29842764 2.16840.1.783481.3.579.2.23367-72-9749Hbjnrww69925012 2.840.1.822689.3.579.2.89998-63-6361Qazmucp30441355 2.0.1.695835.3.579.2.45495-17-2381Fvavxde82493173 2.840.1.882081.3.579.2.001406-89-4376Brghhem17719052 2.0.1.012239.3.57[id number] 2.0.1.181417.3.579.2.805573-80-1340Futyzoy88265101 2.0.1.135693.3.579.2.4[id number] 2..1.377897.3.579.2.421776-08-8380Jnarcva71032365 2.0.1.423701.3.579.2.614604-75-4277Qbgkjtz21892444 2.0.1.879423.3.579.2.316662-59-5746Uznwpqk32499563 2.840.1.556087.3.57[id number] 2.840.1.422472.3.579.2.645250-95-2254Pxeacis2189538 2.16.840.1.257620.3.579.2.532960-79-9705Wauevsw5843843 2.16.840.1.842746.3.579.2.798033-89-8230Gdkvohy0245049 2.16.840.1.173358.3.579.2.980568-00-8302Abumkew7358742 2.16.840.1.506837.3.579.2.858339-46-1285Czfp-uqz48-08-3413IxyayrdURPWE2432214 1.2.840.496461.1.13.239.2.7.3.927791.09388-25-5987Uhdxjlh74959831683076-24-5121 [id number] 2.16.840.1.371849.3.579.2.593 Social History DateTypeDetailFacilityStart: 03-03-2020 End: 10-78-6216Zttnlvu smoking status NHISNever smokerWilson Health: 03-03-2020 End: 10-16-6141Fszdlpt use and exposureNever usedWilson Health: 03-03-2020 End: 03-49-2563Zfrofjo intakeCurrent drinker of alcohol (finding)[facility]: 39-37-8167Nxjoenn CommentsocialWilson Health: 14-55-3743Nsw Assigned At BirthNot on [facility]: 05-01-2020 End: 57-71-0478Yyigibz SDOH Fgsrprtum6IzhgdWilson Health: 05-01-2020 End: 48-38-5963Xukggmf SDOH Food Irwak2QfxxsWilson Health: 05-01-2020 History SDOH Transport Yps7YnjjwWil[place], KYExposure to SARS-CoV-2 (event)Not sureAv[facility]: 05-01-2024 End: 14-79-4742Qgaordcsi beverage intakeEx-drinker (finding)Bon SecMyWebzzSentara [facility] HospitalStart: 05-01-2024 End: 19-26-5968Bhgqlgo of Social functionAugusta HealthStart: 05-01-2024 End: 69-28-2714Uumfcow use panelAugusta HealthStart: 71-28-0112Ajn hard is it for you to pay for the very basics like food, housing, medical care, and heatingNot hard at allAugusta Health(I/We) worried whether (my/our) food would run out before (I/we) got money to buy more.Never trueBon [facility] HospitalStart: 49-17-8647Yze assigned at birthFemaleBon [facility] HospitalStart: 24-52-3084Xyjdsg identityIdentifies as female gender (finding)[facility] HospitalDomobios [facility] HospitalStart: 07-05-2023 End: 48-13-0584Tlpfsmtsw beverage intakeLifetime non-drinker (finding)[facility] HealthcareStart: 63-81-5717KeagfxqjpJVUI HealthcareHas the electric, gas, oil, or water company threatened to shut off services in your home in past 12MoNoBon [facility] HospitalStart: 60-93-5701BgwIlwnot (finding)[facility] Procedure CodeEquipment CodeEquipment Original TextEquipment IdentifierDatesUse as [id number]: 01-15-2025 End: 34-48-9718Xhtijt 1 each under the skin [id number]: 04-07-2025 End: 07-16-2025 Goals DatePatient GoalDesired Activity/StatePersonal health goal Clinical Notes 03-20-2023 to 05-14-2025 Note Date & DzztInfoNzchcgjc04-68-5962 History of Present illness Narrative* Criselda Aguirre LPN - 05/14/2025 2:50 PM [...] nursing note reviewed. Exam conducted with a metallurgical tester present. Vitals: Estimated body mass index is 37.47 kg/m as calculated from the following: Height as of 01/30/23: 5' 6 . Weight as of this encounter: 232 lb 1.9 oz. BP: 110/70 Patient's last menstrual period was 09/16/2024. Assessment/Plan ICD-10-CM 1. Third trimester ([facility]) Z34.93 2. 34 weeks gestation of ([facility]) Z3A.34 POCT urinalysis dipstick manually resulted [...] of: Mukul Foy DO documented in this encounterMissouri Delta Medical CenterNipfwpqclc59-21-0556 History of Present illness Narrative* Ceasar Li [...] nursing note reviewed. Exam conducted with a metallurgical tester present. Vitals: Estimated body mass index is [...] of: Ceasar Li NP documented in this encounterMissouri Delta Medical CenterUzabuhblqm13-71-5496 History of Present illness Narrative* JOSEPH Bowie [...] 1. Third trimester ([facility]) Z34.93 POCT urinalysis dipstick manually resulted 2. 30 weeks gestation of ([facility]) Z3A.30 Return OB: Patient presents today [...] behalf of: JOSEPH Bowie documented in this encounterMissouri Delta Medical CenterCrdhttdgaq54-23-7528 History of Present illness Narrative* JOSEPH Bowie [...] PLAN ICD-10-CM 1. 28 weeks gestation of ([facility]) Z3A.28 POCT urinalysis dipstick manually resulted US OB follow up transabdominal approach US biophysical profile w non stress test 2. Third trimester ([facility]) Z34.93 POCT urinalysis dipstick manually resulted US OB follow up transabdominal approach US biophysical profile w non stress test 3. Dizziness R42 CBC and differential CBC and differential 4. Gestational diabetes mellitus (GDM), antepartum, gestational diabetes method of control unspecified ([facility]) O24.419 US OB follow up transabdominal [...] behalf of: JOSEPH Bowie documented in this encounterMissouri Delta Medical CenterIzzpkdofcl61-06-9884 History of Present illness Narrative* Mukul Foy DO - 03/12/2025 3:50 PM EDT Reason for [...] GDM (gestational diabetes mellitus) ([facility]) No family history on file. Social [...] nursing note reviewed. Exam conducted with a metallurgical tester present. Vitals: Estimated body mass index is 36.12 kg/m as calculated from the following: Height as of 01/30/23: 5' 6 . Weight as of this encounter: 223 lb 12.8 oz. BP: 100/70 Patient's last menstrual period was 09/16/2024. Assessment/Plan Encounter Diagnosis: ICD-10-CM 1. 25 weeks gestation of ([facility]) Z3A.25 POCT urinalysis dipstick manually resulted 2. Second trimester ([facility]) Z34.92 POCT urinalysis dipstick manually resulted [...] of: Mukul Foy DO documented in this encounterMissouri Delta Medical CenterYrjlfbsffd88-03-3782 History of Present illness Narrative* Ceasar Li [...] nursing note reviewed. Exam conducted with a metallurgical tester present. Vitals: Estimated body mass index is 35.96 kg/m as calculated from the following: Height as of 01/30/23: 5' 6 . Weight as of this encounter: 222 lb 12.8 oz. BP: 110/70 Patient's last menstrual period was 09/16/2024. ASSESSMENT & PLAN ICD-10-CM 1. 23 weeks gestation of ([facility]) Z3A.23 POCT urinalysis dipstick manually resulted [...] of: Mukul Foy DO documented in this encounterMissouri Delta Medical CenterSgtgkhfcps54-35-3413 History of Present illness Narrative* JOSEPH Bowie [...] History: Diagnosis Date GDM (gestational diabetes mellitus) ([facility]) HISTORY PAST MEDICAL HISTORY SOCIAL HISTORY Past Medical History: Diagnosis Date GDM (gestational diabetes mellitus) ([facility]) Social History Tobacco Use Smoking [...] ASSESSMENT & PLAN ICD-10-CM 1. Second trimester ([facility]) Z34.92 metFORMIN XR (Glucophage-XR) 500 MG 24 hr tablet POCT urinalysis dipstick manually resulted 2. 20 weeks gestation of ([facility]) Z3A.20 metFORMIN XR (Glucophage-XR) 500 MG [...] of: Mukul Foy DO documented in this encounterMissouri Delta Medical CenterQkzzdcuoqg73-26-9045 History of Present illness Narrative* Criselda Aguirre, MATH COACH - 01/15/2025 3:50 PM EDT Reason for [...] nursing note reviewed. Exam conducted with a metallurgical tester present. Vitals: Estimated body mass index is 34.19 kg/m as calculated from the following: Height as of 01/30/23: 5' 6 . Weight as of this encounter: 211 lb 12.8 oz. BP: 118/72 Patient's last menstrual period was 09/16/2024. ASSESSMENT & PLAN ICD-10-CM 1. Second trimester ([facility]) Z34.92 Alpha fetoprotein, maternal Alpha fetoprotein, maternal 2. 17 weeks gestation of ([facility]) Z3A.17 Alpha fetoprotein, maternal Alpha fetoprotein, maternal 3. Vaginal discharge N89.8 SURESWAB(R) ADVANCED VAGINITIS PLUS, TMA 4. STD exposure Z20.2 CHLAMYDIA TRACHOMATIS (GENITO/STI) Neisseria gonorrhea DNA probe, direct 5. Screening, , for anatomic survey ([facility]) Z36.89 US OB 14+ weeks anatomy scan 6. Gastroesophageal reflux in ([facility]) O99.619 omeprazole (PriLOSEC) [address] capsule K21.9 7. Gestational diabetes mellitus (GDM), antepartum, gestational diabetes method of control unspecified ([facility]) O24.419 glucose blood test strip Return [...] behalf of: alesha bowie documented in this encounterMissouri Delta Medical CenterKwbbvgzhvp16-88-2883 History of Present illness Narrative* JOSEPH Bowie [...] Documented by JOSEPH Bowie documented in this encounterMissouri Delta Medical CenterNgraamlvyn59-77-3788 History of Present illness Narrative* Elizabeth Ware [...] Nurse Note: Patient uncertain of doing the [place] screening. Pt was advised both labs and [...] undercooked meat, and stay away from [facility]. Patient has also been advised to [...] by: Elizabeth Ware MA documented in this encounterMissouri Delta Medical CenterZlalmeitmv91-21-2173 History of Present illness Narrative* Elizabeth Ware [...] nursing note reviewed. Exam conducted with a metallurgical tester present. Vitals: Estimated body mass index is [...] of: Mukul Foy DO documented in this encounterMissouri Delta Medical CenterWcqsxidymt26-94-8603 NoteHNO ID: [id number] Author: LANG CARREON APRN.RAILROAD INSPECTOR Service: ? Author Type: Nurse Practitioner Type: Progress Notes Filed: 08/06/2023 10:44 Note Text: Telemedicine Visit - Distance Health Virtual Visit Note I have communicated my name and active licensure. The patient's identity and physical location were verified at the time of this visit. Either the patient or their legal account retention representative has been informed of the risks and benefits of -- and alternatives to -- treatment through a remote evaluation and consents to proceed with the evaluation remotely. Patient seen on virtual platforms, [employer]. Location of patient: [place] History of Presenting Illness: Vinny Downey 22 [...] - Sleep with head elevated due to zvdw-wouyo-cmop increases cough - Continue Flonase - Flonase: [...] care - All questions answered Lang Carreon APRN.[facility]12-19-2023 NoteUT Electrophysiology Consult Note Reason for visit: [...] recent labs Rajendra Sheffield MD Cardiac Electrophysiology [facility]12-19-2023 NotePatient here for follow up event monitor. Echo was not performed that was ordered at last apt in Feb 2023 by Israel Champion CNP. Does not notice palpitations as often. Denies chest pain, SOB, and lightheadedness. Review of Systems Cardiovascular: Positive for palpitations (less often). All other systems reviewed and are negative.[facility] 03-30-2023 Note-developed anemia s/p -hgb 10.8 per recent labsUnParkview Health [facility]09-07-2023 Note- could be related to being , anemia -monitor and echo to rule out cardiac concernUnParkview Health [facility] Hospital 03-30-2023 Note- takes sertraline 50 mg dailyUnParkview Health [facility] Hospital 03-30-2023 Note- 30-day event monitor - we will hold off on starting medication until follow-upUnParkview Health Bryan Hospital08-28-2023 NoteNew patient here to establish care. Ref from Dr. Foy for bradycardia. She is 8 weeks . Had ECG last week. Symptoms started after baby was born. She feels palpitations. Did lose a lot of blood with , requiring transfusion. Denies chest pain and SOB. Review of Systems Cardiovascular: Positive for palpitations. Neurological: Positive for headaches. All other systems reviewed and are negative.[facility] 03-20-2023 NoteUT Electrophysiology Consult Note Reason [...] images are attached to (more content not included)...[facility] Frequent UTI Urinary tract infection, site not specified documented in this encounter [employer] Phone: evaluation note* Diagnosis Amenorrhea Absence of menstruation documented in this encounter [employer] Phone: evaluation note* Diagnosis Elevated liver enzymes Nonspecific elevation of levels of transaminase or lactic acid dehydrogenase (LDH) Mixed hyperlipidemia documented in this encounter [employer] note* Diagnosis Well woman exam with routine gynecological exam Routine gynecological examination documented in this encounter [facility]ravoaviaEvaluation note* Diagnosis Missed menses 8 weeks gestation of , unspecified gestational age Encounter for supervision of normal first in first trimester History of miscarriage Personal history of other genital system and obstetric disorders documented in this encounter [facility] note* Diagnosis Second trimester state, incidental 12 weeks gestation of Subchorionic hematoma in first trimester, single or unspecified fetus Diabetes mellitus screening Screening for diabetes mellitus documented in this encounter [facility]Evaluation note* Diagnosis Subchorionic hematoma, antepartum, first trimester, not applicable or unspecified fetus documented in this encounter [facility] i-drive note* Diagnosis Second trimester (HHS-HCC) state, incidental 17 weeks gestation of (HHS-HCC) Vaginal discharge Leukorrhea, not specified as infective STD exposure Screening, , for anatomic survey ([facility]) Encounter for anatomic survey Gastroesophageal reflux in ([facility]) Gestational diabetes mellitus (GDM), antepartum, gestational diabetes method of control unspecified([facility]) [facility] [...] (GDM), antepartum, gestational diabetes method of control unspecified([facility]) History of miscarriage Personal history of [...] gestational diabetes mellitus (GDM) during , antepartum ([facility]) Gestational diabetes mellitus (GDM), antepartum, gestational diabetes method of control unspecified([facility]) documented [facility] this encounter [facility] Narrative* Imaging (Routine) - OpenSpecialty Diagnoses / ProceduresReferred By ContactReferred To ContactRadiology Diagnoses Subchorionic hematoma, antepartum, first trimester, not applicable or unspecified fetus Procedures US OB LESS THAN 14 WEEKS SINGLE OR FIRST GESTATION W DOPPLER US OB TRANSVAGINAL Mukul Foy MD [address] [place] [address] Phone: tel: Referral IDStatusMaureenStyumiko DateExpiration DateVisits RequestedVisits [id number]/29/20255/ [facility] Diagnosis Screening for cervical cancer Screening for malignant neoplasm of the cervix Encounter for annual routine gynecological examination Diagnosis Encounter for screening for HIV Other fatigue Wellness examination Advance Directives TypeDate RecordedPatient RepresentativeExplanationAdvance Directives and Living WillPower of AttorneyTypeDate RecordedPatient RepresentativeExplanationACP- Advance DirectiveACP-Power of AttorneyTypeDate RecordedPatient Tube Sizer Operator ExplanationACP-Advance DirectiveACP-Power of Underwriting Manager Summary Purpose Family History No Family History Records FoundNo Family History Records FoundNo Family History Records FoundNo Family History Records FoundNo Family History Records FoundNo Family History Records FoundNo Family History Records Found Reason for Referral StatusReasonSpecialtyDiagnoses / ProceduresReferred By ContactReferred To ContactClosedRadiology Diagnoses Frequent UTI Procedures US RENAL COMPLETE Lorena Ricks, CORE MAKER - RAILROAD INSPECTOR [address] [place] [address] Additional Source Comments INFORMATION SOURCE (unrecogn ized section and content) DATE CREATED AUTHOR 10/14/2020 [facility] DATE CREATED AUTHOR AUTHOR'S ORGANIZ ATION 09/26/2021 [facility] DATE CREATED AUTHOR AUTHOR'S ORGANIZ ATION 12/30/2022 [facility] DATE CREATED AUTHOR AUTHOR'S ORGANIZ ATION 08/03/2023 [facility] DATE CREATED AUTHOR AUTHOR'S ORGANIZ ATION 08/07/2023 [facility] DATE CREATED AUTHOR AUTHOR'S ORGANIZ ATION 01/09/2025 [facility] DATE CREATED AUTHOR AUTHOR'S ORGANIZ ATION 05/16/2025 [facility] Reason for Visit (unrecogniz ed section and content) StatusReasonSpecialtyDiagnoses / ProceduresReferred By ContactReferred To ContactClosedRadiology Diagnoses Frequent UTI Procedures US RENAL COMPLETE Lorena Ricks, CORE MAKER - RAILROAD INSPECTOR [address] [place] [address] ReasonCommentsGynecologic ExamReasonCommentsAmenorrheaReasonCommentsRoutine VisitReasonCommentsRoutine VisitSTI Screening Care Teams (unrecognized sec tion and content) Team MemberRelationshipSpecialtyStart DateEnd Date Ynes Rodriguez, [facility] [address] [place] [address] PCP - Generalmily Nurse Fkyithqbwoxu46/12/20Team MemberRelationshipSpecialty Start DateEnd Date Ynes Rodriguez, CORE MAKER - [facility] [address] [place] [address] PCP - GeneralA[facility] Holy [facility] Hospitally Nurse Rwqnsyigxzut58/12/20Team MemberRelationshipSpecialty Start DateEnd Date Ynes Rodriguez, [facility] [address] [facility] [place] [address] PCP - GeneralA[facility]a Holy Family Hospitally Nurse Practitioner08/02/22Team MemberRelationshipSpecialty Start DateEnd Date Ynes Rodriguez, [facility] [address] [place] [address] PCP - Generalmily Nurse Practitioner08/02/22Team MemberRelationshipSpecialty Start DateEnd Date Ynes Rodriguez, [facility] [address] [place] [address] PCP - GeneralFamily Nurse Practitioner08/02/22 FOR RECORDS [...] BE BASED ON THE PRIMARY CLINICAL RECORDS. [facility] [employer] [facility]. provides no warranty or guarantee of the accuracy or completeness of information in this document.
[2025-05-24 09:17] VITALS: BP 134/67; PULSE 88
== END 2025-05-24 09:40 | disposition home or self-care (01) ==
LOC: FBCO 09:11 → FBC 09:13
PROVIDERS: PCP Nurse Practitioner Women's Health; Visit Provider Obstetrics & Gynecology
DX: O24.419 Gestational diabetes mellitus in pregnancy, unspecified control (principal)
CPT/HCPCS: 59025

== ENCOUNTER 2025-05-28 15:23 | Outpatient (OUT) | payer OTHER, SELFPAY ==
--- OUTSIDE RECORDS SUMMARY | 2025-04-30 14:00 | XMS_ITS | Encounter Summary ---
Author Organization [facility] Address [address] [place] [address] Care Team Providers Care Drug And Alcohol Treatment Specialist Name Role Phone Unavailable Primary Care Provider Unavailabl e Reason for Visit * ReasonCommentsRoutine Visit Encounter Details DateTypeDepartmentCare Team (Latest Contact Info)Zoqzkjommjd37/08/2025 3:00 PM EDTRoutine [facility] [address] [place] [address] Tiffany Li, ASHWIN [address] [facility] [place] [address] Third trimester ([facility]); 32 weeks gestation of ([facility]) Social History Tobacco UseTypesPacks/DayYears UsedDateSmoking Tobacco: NeverSmokeless Tobacco: NeverAlcohol UseStandard Drinks/WeekCommentsNever0 (1 standard drink = 0.6 oz pure alcohol)Estimated Date of BffdbowoRoqzceosUfz39/01/2025Based on last menstrual period of 09/16/2024Sex and Gender InformationValueDate Recorded Sex Assigned at BirthNot on fileLegal JpiXrmrac29/15/2023 11:47 PM EDTGender IdentityNot on fileSexual OrientationNot on filedocumented as of this encounter Last Filed Vital Signs Vital SignReadingTime TakenCommentsBlood Rgwtptoi476/7010 3:11 PM EDT Pulse--Temperature--Respiratory Rate--Oxygen Saturation--Inhaled Oxygen Concentration--Wmpeou771 kg (227 lb 6.4 oz)04/30/2025 3:11 PM [...] Frequent UTI 11/30/2020 23 weeks gestation of ([facility]) 02/26/2025 Elevated blood sugar level 02/26/2025 Resolved Ambulatory Problems Diagnosis Date Noted Missed period 01/13/2023 Past Medical History: Diagnosis Date GDM (gestational diabetes mellitus) ([facility]) HISTORY PAST MEDICAL HISTORY SOCIAL HISTORY Past Medical History: Diagnosis Date GDM (gestational diabetes mellitus) ([facility]) Social History Tobacco Use Smoking status: [...] nursing note reviewed. Exam conducted with a hot knife cutter present. Vitals: Estimated body mass index is 36.7 kg/m?? as calculated from the following: Height as of 01/30/23: 5' 6 . Weight as of this encounter: 227 lb 6.4 oz. BP: 110/70 Patient's last menstrual period was 09/16/2024. ASSESSMENT & PLAN ICD-10-CM 1. Third trimester ([facility]) Z34.93 2. 32 weeks gestation of ([facility]) Z3A.32 POCT urinalysis dipstick manually resulted [...] Plan of Treatment DateTypeDepartmentCare Team (Latest Contact Info)Rddwopnhkql71/10/2025 1:00 PM ESTRoutine [facility] [place] [address] [place] [phone] Mukul Foy, DO [address] [facility] [address] [place], [place] [phone] 07/28/2025 4:00 PM ESTOffice Visit [facility] [address] [place] [address] Mukul Foy, DO [address] [facility] [place] [address] documented as of this encounter Goals GoalPatient Goal TypeAssociated ProblemsRecent ProgressPatient-Stated?Author Reminders Care PlanOB RemindersNoOpen Scheduling, Backgrounddocumented as of this encounter Procedures Procedure NamePriorityDate/TimeAssociated DiagnosisCommentsPOCT URINALYSIS QCWLDSHGIabmeju28/08/2025 3:19 PM EDT 32 weeks gestation of ([facility]) documented in this encounter Results * [...] / LateralityCollection Method / VolumeCollection Time Received NbawVjzny38/08/2025 3:19 PM EDT Narrative Authorizing ProviderResult TypeResult StatusTiffany Li NPPOINT OF CARE TEST ENTER/EDIT ORDERABLESFinal Result documented in this encounter Visit Diagnoses Diagnosis Third trimester ([facility]) state, incidental 32 weeks gestation of ([facility]) documented in this encounter Additional Health Concerns Active ProblemsNoted DateDiagnosed DateOB Ikaywtitn26/09/2025 documented as of this encounter
--- OUTSIDE RECORDS SUMMARY | 2025-05-14 13:50 | XMS_ITS | Encounter Summary ---
Author Organization [facility] Address [address] [place] [address] Care Team Providers Care Threat Monitoring Analyst Name Role Phone Unavailable Primary Care Provider Unavailabl e Reason for Visit * ReasonCommentsRoutine Visit Encounter Details DateTypeDepartmentCare Team (Latest Contact Info)Bifvqbvglja86/22/2025 2:50 PM EDTRoutine [facility] [address] [place] [address] Mukul Foy DO [address] [place], [place] [phone] Third trimester ([facility]); 34 weeks gestation of ([facility]); Insulin controlled gestational diabetes mellitus (GDM) during , antepartum ([facility]); Gestational diabetes mellitus (GDM), antepartum, gestational diabetes method of control unspecified([facility]) Social History Tobacco UseTypesPacks/DayYears UsedDateSmoking Tobacco: NeverSmokeless Tobacco: NeverAlcohol UseStandard Drinks/WeekCommentsNever0 (1 standard drink = 0.6 oz pure alcohol)Estimated Date of CcjjoqqlPahlynkxRuk94/01/2025Based on last menstrual period of 09/16/2024Sex and Gender InformationValueDate Recorded Sex Assigned at BirthNot on fileLegal FqmYlnpen31/15/2023 11:47 PM EDTGender IdentityNot on fileSexual OrientationNot on filedocumented as of this encounter Last Filed Vital Signs Vital SignReadingTime TakenCommentsBlood Qsfcvsti293/7010 3:05 PM EDT Pulse--Temperature--Respiratory Rate--Oxygen Saturation--Inhaled Oxygen Concentration--Trlxkh990 kg (232 lb 1.9 oz)05/14/2025 3:05 PM [...] Frequent UTI 11/30/2020 23 weeks gestation of ([facility]) 02/26/2025 Elevated blood sugar level 02/26/2025 Resolved Ambulatory Problems Diagnosis Date Noted Missed period 01/13/2023 Past Medical History: Diagnosis Date GDM (gestational diabetes mellitus) ([facility]) HISTORY PAST MEDICAL HISTORY SOCIAL HISTORY Past Medical History: Diagnosis Date GDM (gestational diabetes mellitus) ([facility]) Social History Tobacco Use Smoking status: [...] nursing note reviewed. Exam conducted with a lotteries agent present. Vitals: Estimated body mass index is 37.47 kg/m?? as calculated from the following: Height as of 01/30/23: 5' 6 . Weight as of this encounter: 232 lb 1.9 oz. BP: 110/70 Patient's last menstrual period was 09/16/2024. Assessment/Plan ICD-10-CM 1. Third trimester ([facility]) Z34.93 2. 34 weeks gestation of ([facility]) Z3A.34 POCT urinalysis dipstick manually resulted [...] Plan of Treatment DateTypeDepartmentCare Team (Latest Contact Info)Skwhmscsvpo02/10/2025 1:00 PM ESTRoutine [facility] [address] [place] [phone] Mukul Foy, [address] [place] [address] 07/28/2025 4:00 PM ESTOffice Visit [facility] [address] [place] [phone] Mukul Foy, DO [address] [facility] [address] [place], [place] [phone] NameTypePriorityAssociated DiagnosesDate/TimeUS OB follow up transabdominal approachImagingRoutine Insulin controlled gestational diabetes mellitus (GDM) during , antepartum ([facility]) 05/28/2025 2:26 PM ESTNameTypePriorityAssociated DiagnosesOrder ScheduleUS OB follow up transabdominal approachImagingRoutine Insulin controlled gestational diabetes mellitus (GDM) during , antepartum ([facility]) Expected: 05/14/2025, Expires: 09/14/2025documented as of this encounter Goals GoalPatient Goal TypeAssociated ProblemsRecent ProgressPatient-Stated?Author Reminders Care PlanOB RemindersNoOpen Scheduling, Backgrounddocumented as of this encounter Procedures Procedure NamePriorityDate/TimeAssociated DiagnosisCommentsPOCT URINALYSIS YPHXNWCFQunzpgq67/22/2025 3:13 PM EDT 34 weeks gestation of ([facility]) documented in this encounter Results * POCT urinalysis dipstick manually resulted (05/14/2025 [...] 3:13 PM EDT Narrative Authorizing ProviderResult TypeResult StatusCorey Law DOPOINT OF CARE TEST ENTER/EDIT ORDERABLESFinal Result documented in this encounter Visit Diagnoses Diagnosis Third trimester ([facility]) state, incidental 34 weeks gestation of ([facility]) Insulin controlled gestational diabetes mellitus (GDM) during , antepartum ([facility]) Gestational diabetes mellitus (GDM), antepartum, gestational diabetes method of control unspecified([facility]) documented in this encounter Additional Health Concerns Active ProblemsNoted DateDiagnosed DateOB Kplwovgoh66/09/2025 documented as of this encounter
--- OUTSIDE RECORDS SUMMARY | 2025-05-28 14:00 | XMS_ITS | Encounter Summary ---
Author Organization [facility] Address [address] [place] [address] Care Team Providers Care Control Board Operator Name Role Phone Unavailable Primary Care Provider Unavailabl e Encounter Details DateTypeDepartmentCare Team (Latest Contact Info)Itktzzgkexw96/05/2025 2:00 PM ESTAncillary Procedure [facility] S[facility] [place] [address] Insulin controlled gestational diabetes mellitus (GDM) during , antepartum ([facility] Social History Tobacco UseTypesPacks/DayYears UsedDateSmoking Tobacco: NeverSmokeless Tobacco: NeverAlcohol UseStandard Drinks/WeekCommentsNever0 (1 standard drink = 0.6 oz pure alcohol)Estimated Date of OmeiivryVteeipjtRfu03/01/2025Based on last menstrual period of 09/16/2024Sex and Gender InformationValueDate Recorded Sex Assigned at BirthNot on fileLegal QavOzckwk84/15/2023 11:47 PM EDTGender IdentityNot on fileSexual OrientationNot on filedocumented as of this encounter Plan of Treatment DateTypeDepartmentCare Team (Latest Contact Info)Aedkgnuwift57/10/2025 1:00 PM ESTRoutine [facility] SANTO [address] [place] [address] Mukul Foy, [address] [place], [place] [phone] 07/28/2025 4:00 PM ESTOffice Visit [facility] [address] [place] [address] Mukul Foy DO [address] [place] [address] NameTypePriorityAssociated DiagnosesDate/TimeUS OB follow up transabdominal approachImagingRoutine Insulin controlled gestational diabetes mellitus (GDM) during , antepartum ([facility]) 05/28/2025 2:26 PM ESTdocumented as of this encounter Goals GoalPatient Goal TypeAssociated ProblemsRecent ProgressPatient-Stated?Author Reminders Care PlanOB RemindersNoOpen Scheduling, Backgrounddocumented as of this encounter Visit Diagnoses Diagnosis Insulin controlled gestational diabetes mellitus (GDM) during , antepartum ([facility]) documented in this encounter Additional Health Concerns Active ProblemsNoted DateDiagnosed DateOB Sqvpvqwbu60/09/2025 documented as of this encounter
--- OUTSIDE RECORDS SUMMARY | 2025-05-28 14:30 | XMS_ITS | Encounter Summary ---
Author Organization [facility] Address [address] [place] [address] Care Team Providers Care Artificial Snow Making Machine Operator Name Role Phone Unavailable Primary Care Provider Unavailabl e Reason for Visit * ReasonCommentsRoutine Visit Encounter Details DateTypeDepartmentCare Team (Latest Contact Info)Fopkmuabbdy13/05/2025 2:30 PM ESTRoutine [facility] [place] [facility] [address] [place] [address] Regina Barton PA [address] [place] [address] Third trimester ([facility]); 36 weeks gestation of ([facility]) Social History Tobacco UseTypesPacks/DayYears UsedDateSmoking Tobacco: NeverSmokeless Tobacco: NeverAlcohol UseStandard Drinks/WeekCommentsNever0 (1 standard drink = 0.6 oz pure alcohol)Estimated Date of KissflbgIctaseoiWsk26/01/2025ased on last menstrual period of 09/16/2024Sex and Gender InformationValueDate Recorded Sex Assigned at BirthNot on fileLegal DqxFgweug22/15/2023 11:47 PM EDTGender IdentityNot on fileSexual OrientationNot on filedocumented as of this encounter Last Filed Vital Signs Vital SignReadingTime TakenCommentsBlood Bfumupkf682/80107/28/2024 2:52 PM EST Pulse--Temperature--Respiratory Rate--Oxygen Saturation--Inhaled Oxygen Concentration--Rfkdmm373 kg (237 lb 12.8 oz)05/28/2025 2:52 PM ESTHeight--Body Mass Index38.38001/30/2023 12:12 PM EDTdocumented in this encounter Plan of Treatment DateTypeDepartmentCare Team (Latest Contact Info)Qioowdgnyma44/10/2025 1:00 PM ESTRoutine [facility] [place] [facility] [address] [place] [address] Mukul Foy, DO [address] [facility] [address] [facility] [address] [place], [place] [address] 07/28/2025 4:00 PM ESTOffice Visit [facility] [address] [place] [address] Mukul Foy, DO [address] [facility] [place] [address] NameTypePriorityAssociated DiagnosesOrder ScheduleCULTURE, GROUP B STREP WITH SUSCEPTIBLITYLabRoutine Third trimester ([facility]) Expected: 05/28/2025, Expires: 05/28/2026documented as of this encounter Goals GoalPatient Goal TypeAssociated ProblemsRecent ProgressPatient-Stated?Author Reminders Care PlanOB RemindersNoOpen Scheduling, Backgrounddocumented as of this encounter Procedures Procedure NamePriorityDate/TimeAssociated DiagnosisCommentsPOCT URINALYSIS TVCIKPGRUiwsbap55/05/2025 2:52 PM EST 36 weeks gestation of ([facility]) documented in this encounter Results * [...] 2:52 PM EST Narrative Authorizing ProviderResult TypeResult Status[facility]/EDIT ORDERABLESFinal Result documented in this encounter Visit Diagnoses Diagnosis Third trimester ([facility]) state, incidental 36 weeks gestation of ([facility]) documented in this encounter Additional Health Concerns Active ProblemsNoted DateDiagnosed DateOB Wqguepvjf84/09/2025 documented as of this encounter
--- OUTSIDE RECORDS SUMMARY | 2025-05-28 15:25 | XMS_ITS | Encounter Summary ---
Author Organization [facility] Address [address] [place] [address] Care Team Providers Care Medical Genetics Director Name Role Phone Unavailable Primary Care Provider Unavailabl e Encounter Details DateTypeDepartmentCare Team (Latest Contact Info)Tptuisrhlby89/29/2025linisync Result Encounter [facility] External Department Unsolicited Britt Foy DO [address] [place], [place] [phone] Social History Tobacco UseTypesPacks/DayYears UsedDateSmoking Tobacco: NeverSmokeless Tobacco: NeverAlcohol UseStandard Drinks/WeekCommentsNever0 (1 standard drink = 0.6 oz pure alcohol)Estimated Date of McpmmpteGamtzvalFdy98/01/2025Based on last menstrual period of 09/16/2024Sex and Gender InformationValueDate Recorded Sex Assigned at BirthNot on fileLegal PnxLwkhdz78/15/2023 11:47 PM EDTGender IdentityNot on fileSexual OrientationNot on filedocumented as of this encounter Plan of Treatment DateTypeDepartmentCare Team (Latest Contact Info)Tegpqndyarx80/10/2025 1:00 PM ESTRoutine [facility] [place] [facility] [address] [facility] [place] [phone] Britt Foy DO [address] [place] [address] 07/28/2025 4:00 PM ESTOffice Visit [facility] [place] [facility] [address] [facility] [address] [place] [phone] Britt Foy, DO [address] [facility] [place] [address] documented as of this encounter Goals GoalPatient Goal TypeAssociated ProblemsRecent ProgressPatient-Stated?Author Reminders Care PlanOB RemindersNoOpen Scheduling, Backgrounddocumented as of this encounter Procedures Procedure NamePriorityDate/TimeAssociated DiagnosisCommentsUS OB BPP W NON-JFPMBZ8405/21/2025 7:56 PM EDT documented in this encounter Results * US OB BPP W NON-STRESS (05/21/2025 7:56 PM EDT)Anatomical Region LateralityModalityOtherSpecimen (Source)Anatomical Location / Laterality Collection Method / VolumeCollection TimeReceived Time05/21/2025 7:56 PM EDT Narrative 05/21/2025 7:59 PM EDT [facility] ?[address] ? [place] [address] ? Ultrasound Report ? Signed ? Patient: VINNY HERRERAIA Ericka ?MR#: [id number] ?? : 2000 ?Acct:[id number] ?? Age/Sex: 24 / F ?ADM Date: 05/21/25 ?? Loc: US ? Attending Dr: Britt Foy D.O. ? Ordering Physician: Britt Foy D.O. ?? Date of Service: 05/21/25 ?? Procedure(s): US OB BPP w non-stress ?? Accession Number(s): [id number] ? cc: Britt Foy D.O.; Ynes Mistry NP ? [facility] ? [address] ? [place] [address] ? Patient Name: ?? VINNY HERRERA ? MRN: [id number] ? date: 2000 ?Sex: F ?? Assigned Patient Location: [facility] ?? Current Patient Location: ? Accession/Order Number: [id number] ?? Exam Date: 05/21/2025 ??16:12 ?Report Date: 05/21/2025 ??19:56 ? At the request of: ?? BRITT ??LAW ??DO ? Procedure: ??US OB BPP w non-stress ? Ultrasound biophysical profile ? INDICATION: Gestational diabetes ? COMPARISON: 05/07/2025 ? FINDINGS/IMPRESSION:: Fetus cephalic position. ?? 8 score biophysical ?? profile. ?? heart rate 139 beats per minutes. ??JAMAL 19.1 cm . ? Impression dictated by: Chevy Moreland M.D. ??05/21/2025 7:56 PM ? Dictation Location: RADIO-PC-29 ? Electronically authenticated by: [id number] ??Y ?? Date: 05/21/2025 ??19:56 ? Dictated By: ?Chevy Moreland M.D. ? Signed By: ?05/21/251958 ? DD/ 55 ? TD/TT: ? Inspector Outside Steam Distribution: Procedure Note Radiology, Radiologist, - 05/21/2025 [place] [address] Ultrasound Report Signed Patient: VINNY HERRERA CMR#: [id number] : 2000Acct:[id number] Age/Sex: 24 / FADM Date: 05/21/25 Loc: US Attending Dr: Britt Foy D.O. Ordering Physician: Britt Foy D.O. Date of Service: 05/21/25 Procedure(s): US OB BPP w non-stress Accession Number(s): [id number] cc: Britt Foy D.O.; Ynes Mistry INSURANCE APPLICATION INVESTIGATOR [facility] [place] [id number] Patient Name: VINNY HERRERA MRN: [id number] date: 2000 Sex: F Assigned Patient Location: [facility] Current Patient Location: Accession/Order Number: [id number] Exam Date: 05/21/2025 16:12 Report Date: 05/21/2025 19:56 At the request of: BRITT FOY DO Procedure: US OB BPP w non-stress Ultrasound biophysical profile INDICATION: Gestational diabetes COMPARISON: 05/07/2025 FINDINGS/IMPRESSION:: Fetus cephalic position. 8/8 score biophysical profile. heart rate 139 beats per minutes. JAMAL 19.1 cm . Impression dictated by: Chevy Moreland M.D. 05/21/2025 7:56 PM Dictation Location: [place] [address] Electronically authenticated by: [id number] Y Date: 9:56 Dictated By: Chevy Moreland M.D. Signed By:05/21/251958 DD/ 55 TD/TT: Inspector Outside [employer] Distribution: Authorizing ProviderResult TypeResult StatusCorey Law DOCLINISYNC IMAGINGFinal Result documented in this encounter Visit Diagnoses Not on filedocumented in this encounter Additional Health Concerns Active ProblemsNoted DateDiagnosed DateOB Xfmjtrqgf01/09/2025 documented as of this encounter
--- OUTSIDE RECORDS SUMMARY | 2025-05-28 15:26 | XMS_ITS | Clinical Summary ---
Author Organization [facility] Healthcare Address [address] [place] [address] Care Team Providers Care Pillowcase Cleaner Name Role Phone Unavailable Primary Care Provider Unavailabl e Allergies No known active allergies Medications MedicationSigDispense QuantityRefillsLast FilledStart DateEnd DateStatus sertraline (Zoloft) 50 MG tablet Indications:Anxiety, generalizedTAKE 1 TABLET BY MOUTH EVERY DAY IN THE MORNING 30 tablet 304/5Active glucose blood test strip Indications:Gestational diabetes mellitus (GDM), antepartum, gestational diabetes method of control unspecified([facility])Use as instructed 100 each 1206//693909/6Active metFORMIN XR (Glucophage-XR) 500 MG 24 hr tablet Indications:Second trimester ([facility]),20 weeks gestation of ([facility])Take 2 tablets (1,000 mg) by mouth in the evening. Take with meals 60 tablet 507//508484/6Active pantoprazole (Protonix) 40 MG EC tablet Indications:23 weeks gestation of ([facility]),Elevated blood sugar level ,Gastroesophageal reflux disease without esophagitisTake 1 tablet (40 mg) by mouth in the morning. Take before meals. Do not crush, chew, or split. 30 tablet 1108//651089/6Active metoclopramide (Reglan) 10 MG tablet Indications:Gastroesophageal reflux [...] gestational diabetes mellitus (GDM) during , antepartum ([facility])Inject 1 each under the skin Daily 100 each 5Active insulin glargine (Lantus SoloStar) 100 UNIT/ML pen [...] Problems ProblemNoted DateDiagnosed Date23 weeks gestation of ([facility]) 02/26/2025Elevated blood sugar level02/26/2025bnormal glucose level01/13/2023 Fmhwwdjxt96/23/1879Onnochecywa25/23/2023Dyspareunia in sindcb5911/30/2020Frequent UTI11/30/20207738Tsyemvz92/07/2020Insomnia due to other mental kyxanevi28/10/2020 Other mnoyqka0305/02/2020Estimated Date of UysddzmrCdracczcGbh76/01/2025 Based on last menstrual period of 09/16/2024 Resolved Problems ProblemNoted DateDiagnosed DateResolved DateMissed koceac08/ Encounters DateTypeDepartmentCare LjnvCsfpisdnoks07/05/2025 2:30 PM ESTRoutine [facility] [address] [place] [address] Regina Cummins PA Third trimester ([facility]); 36 weeks gestation of ([facility])05/28/2025 2:00 PM ESTAncillary Procedure [facility] [address] [place] [address] Insulin controlled gestational diabetes mellitus (GDM) during , antepartum ([facility])05/21/2025linisync Result Encounter [facility] External Department Unsolicited Britt Foy, DO 05/14/2025 2:50 PM EDTRoutine [facility] [facility] [address] [place] [address] Britt Foy, DO Third trimester ([facility]); 34 weeks gestation of ([facility]); Insulin controlled gestational diabetes mellitus (GDM) during , antepartum ([facility]); Gestational diabetes mellitus (GDM), antepartum, gestational diabetes method of control unspecified([facility])05/14/2025amboo flowsheet [facility] [address] [place] [address] Britt Foy, DO 05/02/2025bstract [facility] [address] [place] [place] [address] Britt Foy, DO 04/30/2025 3:00 PM EDTRoutine [facility] [address] [place] [place] [phone] Tiffany Li, ASHWIN Third trimester ([facility]); 32 weeks gestation of ([facility])04/30/2025linisync Result Encounter [facility]OMS External Department Unsolicited Britt Foy, DO 04/30/2025amboo flowsheet [facility] [address] [place] [address] Tiffany Li, ASHWIN 04/27/20254590Uebhna93/23/2025bstract [facility] [address] [place] [place] [address] Britt Foy, DO 04/14/2025 3:20 PM EDTRoutine [facility] [facility] [address] [place] [address] Regina Cummins PA Third trimester ([facility]); 30 weeks gestation of ([facility])04/14/2025amboo flowsheet [facility] [address] [place] [address] Regina Cummins PA 04/14/20255862Rqppou51/15/2025Telephone [facility] [address] [place] [address] Elizabeth Ware MA 04/05/2025linisync Result Encounter [facility] External Department Unsolicited Regina Cummins PA 04/05/2025linisync Result Encounter [facility]OM[facility] External Department Unsolicited Regina Cummins PA 04/03/2025 3:30 PM EDTRoutine [facility] [address] [place] [address] Regina Cummins PA 28 weeks gestation of ([facility]); Third trimester ([facility]); Dizziness; Gestational diabetes mellitus (GDM), antepartum, gestational diabetes method of control unspecified([facility]); History of miscarriage; Anemia, unspecified type; UTI mmkqefad94/11/2025amboo flowsheet [facility] [address] [place] [address] Regina Cummins PA 04/02/2025Telephone [facility] [address] [place] [address] Suyapa Hazel LPN 04/01/20253557Ikimpu89/21/2025bstract [facility] [address] [place] [address] Britt Foy, 03/12/2025 3:50 PM EDTRoutine [facility] [address] [place] [phone] Britt Foy, 25 weeks gestation of ([facility]); Second trimester ([facility]); Gastroesophageal reflux disease without splmxokolav56/20/2025amboo flowsheet [facility] [address] [place] [address] Britt Foy, DO 03/03/2025bstract [facility] [address] [place] [place] [address] Britt Foy, 02/28/2025bstract [facility] [address] [place] [place] [address] Britt Foy, 02/26/2025 3:30 PM EDTRoutine [facility] [address] [place] [address] Britt Foy, 23 weeks gestation of ([facility]); Elevated blood sugar level; Gastroesophageal reflux disease without logtwegnkmq60/06/2025amboo flowsheet [facility] [address] [place] [address] Britt Foy, from Last 3 Months Family History RelationNameStatusCommentsDaughterAliveFatherAliveMotherAliveSisterAlive Social History Tobacco UseTypesPacks/DayYears UsedDateSmoking Tobacco: NeverSmokeless Tobacco: Never Tobacco Cessation:Counseling Given: Not Answered Alcohol UseStandard Drinks/WeekCommentsNever0 (1 standard drink = 0.6 oz pure alcohol)Estimated Date of GqxopkqnTuyfoxxtXlp71/01/2025ased on last menstrual period of 09/16/2024Sex and Gender InformationValueDate RecordedSex Assigned at BirthNot on fileLegal ZzxJvtgsk68/15/2023 11:47 PM EDTGender IdentityNot on fileSexual OrientationNot on file Last Filed Vital Signs Vital SignReadingTime TakenCommentsBlood Gbazqcef998/80107/28/2024 2:52 PM EST Pulse--Temperature--Respiratory Rate--Oxygen Saturation--Inhaled Oxygen Concentration--Zwcjhg907 kg (237 lb 12.8 oz)05/28/2025 2:52 PM XRNCjodzo898.6 cm (5' 6 )01/30/2023 12:12 PM EDTBody Mass Index38.38001/30/2023 12:12 PM EDT Plan of Treatment DateTypeDepartmentCare Team (Latest Contact Info)Yrcotblozyx93/10/2025 1:00 PM ESTRoutine [facility] [address] [place] [address] [place] [phone] Britt Foy, [address] [place], [place] [phone] 07/28/2025 4:00 PM ESTOffice Visit [facility]ANE S[facility] [address] [place] [address] [place] [address] Britt Foy, [address] [place], [place] [phone] Health MaintenanceDue DateLast DoneCommentsCOVID-19 Vaccine (2024- season) /02/2021, 12/07/2020Influenza Vaccine (#1)2025Pneumococcal Vaccine: Pediatrics (0 to 5 Years) and At-Risk Patients (6 to 64 Years)Aged Out No longer eligible based on patient's age to complete this topic Goals GoalPatient Goal TypeAssociated ProblemsRecent ProgressPatient-Stated?Author Reminders Care PlanOB RemindersNoOpen Scheduling, Background Procedures Procedure NamePriorityDate/TimeAssociated DiagnosisCommentsPOCT URINALYSIS QOKKRSUBZiwsjpn50/05/2025 2:52 PM EST 36 weeks gestation of ([facility] US OB BPP W NON-QZDCZX8605/21/2025 7:56 PM EDT POCT URINALYSIS KWTVEETFBvbarxo02/22/2025 3:13 PM EDT 34 weeks gestation of ([facility]) US OB BPP W NON-AJGKSX1404/30/2025 10:59 PM EDT POCT URINALYSIS LULPHKKDVbyioxt39/08/2025 3:19 PM EDT 32 weeks gestation of ([facility]) POCT URINALYSIS IAWISSNZZgpovzo74/22/2025 3:54 PM EDT Third trimester ([facility]) US OB DWDTBL7104/05/2025 12:08 PM EDT ALL CBC WITH AUTO HTTFIfajudf11/13/2025 10:33 AM EDT URINARY TRACT INFECTION (HTRX)Amhukgl8204/03/2025 3:53 PM EDT POCT URINALYSIS JWBJMEOWNloypoj65/11/2025 3:51 PM EDT 28 weeks gestation of ([facility]) Third trimester ([facility]) POCT URINALYSIS WTCOTVXZCckaeox49/20/2025 4:14 PM EDT 25 weeks gestation of ([facility]) Second trimester ([facility]) POCT URINALYSIS BKPMWXGNBenesjj72/06/2025 4:03 PM EDT 23 weeks gestation of ([facility]) Elevated blood sugar level from Last 3 Months Results * POCT urinalysis dipstick manually resulted (05/28/2025 2:52 PM EST) Only the most recent of7 resultswithin the time period is included. ComponentValueRef RangeTest MethodAnalysis TimePerformed AtPathologist Signature Color, UAYellowClarity, UAClearGlucose, UANegativeNegative - 2000(110) ++++ mg/dLBilirubin, UANegativeNegative - 4(70) +++ mg/dLKetones, UANegativeNegative - 160(16) ++++ mg/dLSpec Grav, UA1.0051 - 1.03Blood, UANegativeNegative - 50 Yunior/mcLpH, UA6.55 - 9Protein, UANegativeNegative - 2000(20) ++++ mg/dL Urobilinogen, UA1.00.2 - 12 mg/dLLeukocytes, UANegativeNegative - 500+++ Trip/mcL Nitrite, UANegativeNegative - PositiveSpecimen (Source)Anatomical Location / LateralityCollection Method / VolumeCollection TimeReceived AvwxBhasa77/05/2025 2:52 PM EST Narrative Authorizing ProviderResult TypeResult StatusRegina Cummins [facility]ARE TEST ENTER/EDIT ORDERABLESFinal Result * US OB BPP W NON-STRESS (05/21/2025 7:56 PM EDT) Only the most recent of2 resultswithin the time period is included. Anatomical RegionLateralityModalityOtherSpecimen (Source)Anatomical Location / LateralityCollection Method / VolumeCollection TimeReceived Time05/21/2025 7:56 PM EDT Narrative 05/21/2025 7:59 PM EDT [facility] ?[address] ? [place] [address] ? Ultrasound Report ? Signed ? Patient: VINNY HERRERA ?MR#: [id number] ?? : 2000 ?Acct:[id number] ?? Age/Sex: 24 / F ?ADM Date: 05/21/25 ?? Loc: US ? Attending Dr: Britt Foy D.O. ? Ordering Physician: Britt Foy D.O. ?? Date of Service: 05/21/25 ?? Procedure(s): US OB BPP w non-stress ?? Accession Number(s): [id number] ? cc: Britt Foy D.O.; Ynes Mistry NP ? [facility] ? [address] ? [place] [address] ? Patient Name: ?? VINNY HERRERA ? MRN: [facility]:[id number] ? date: 2000 ?Sex: F ?? Assigned Patient Location: [facility] ?? Current Patient Location: ? Accession/Order Number: [id number] ?? Exam Date: 05/21/2025 ??16:12 ?Report Date: 05/21/2025 ??19:56 ? At the request of: ?? BRITT ??GALLO ??DO ? Procedure: ??US OB BPP w non-stress ? Ultrasound biophysical profile ? INDICATION: Gestational diabetes ? COMPARISON: 05/07/2025 ? FINDINGS/IMPRESSION:: Fetus cephalic position. ?? 02/28 score biophysical ?? profile. ?? heart rate 139 beats per minutes. ??JAMAL 19.1 cm . ? Impression dictated by: Chevy Moreland M.D. ??05/21/2025 7:56 PM ? Dictation Location: RADIO-PC-29 ? Electronically authenticated by: [id number] ??Y ?? Date: 05/21/2025 ??19:56 ? Dictated By: ?Chevy Moreland M.D. ? Signed By: ?05/21/251958 ? DD/ 55 ? TD/TT: ? Administrative Director: Procedure Note Radiology, Radiologist, - 05/21/2025 [place] [address] Ultrasound Report Signed Patient: VINNY HERRERA CMR#: [id number] : 2000Acct:[id number] Age/Sex: 24 / FADM Date: 05/21/25 Loc: US Attending Dr: Britt Foy D.O. Ordering Physician: Britt Foy D.O. Date of Service: 05/21/25 Procedure(s): US OB BPP w non-stress Accession Number(s): [id number] cc: Britt Foy D.O.; Ynes Mistry NP The [address] [address] Patient Name: VINNY HERRERA MRN: [id number] date: 2000 Sex: F Assigned Patient Location: [facility] Current Patient Location: Accession/Order Number: [id number] Exam Date: 05/21/2025 16:12 Report Date: 05/21/2025 19:56 At the request of: BRITT GALLO DO Procedure: US OB BPP w non-stress Ultrasound biophysical profile INDICATION: Gestational diabetes COMPARISON: 05/07/2025 FINDINGS/IMPRESSION:: Fetus cephalic position. 8/8 score biophysical profile. heart rate 139 beats per minutes. JAMAL 19.1 cm . Impression dictated by: Chevy Moreland M.D. 05/21/2025 7:56 PM Dictation Location: [facility]--29 Electronically authenticated by: [id number] Y Date: 9:56 Dictated By: Chevy Moreland M.D. Signed By:05/21/251958 DD/ 55 TD/TT: Administrative Director: Authorizing ProviderResult TypeResult StatusCorevicki Foy DOCLINISYNC IMAGINGFinal Result * US OB GROWTH (04/05/2025 12:08 PM EDT)Anatomical RegionLateralityModalityOther Specimen (Source)Anatomical Location / LateralityCollection Method / Volume Collection TimeReceived Time04/05/2025 12:08 PM EDT Narrative 04/05/2025 12:11 PM EDT [facility] ?[address] ? [place] [address] ? Ultrasound Report ? Signed ? Patient: VINNY HERRERA ?MR#: [id number] ?? : 2000 ?Acct:[id number] ?? Age/Sex: 24 / F ?ADM Date: 04/05/25 ?? Loc: US ? Attending Dr: Regina Cummins ? Ordering Physician: Regina Cummins ?? Date of Service: 04/05/25 ?? Procedure(s): US OB growth ?? Accession Number(s): [id number] ? cc: Regina Cummins; Physician,Non-Staff M.D. ? [facility] ? [address] ? [place] [address] ? Patient Name: ?? VINNY HERRERA ? MRN: [id number] ? date: 2000 ?Sex: F ?? Assigned Patient Location: US ?? Current Patient Location: LAB ?? Accession/Order Number: [id number] ?? Exam Date: 04/05/2025 ??10:00 ?Report Date: [...] Dictation Location: RADIO-PC-20 ? Electronically authenticated by: [id number] ??Y ?? Date: 04/05/2025 ??12:08 ? Dictated By: ?Daryn Peraza D.O. ? Signed By: ?04/05/25 1211 ? DD/ 1208 ? TD/TT: ? Administrative Director: Procedure Note Radiology, Radiologist, - 04/05/2025 The [place] [id number] Ultrasound Report Signed Patient: VINNY HERRERA CMR#: [id number] : 2000Acct:[id number] Age/Sex: 24 FADM Date: 04/05/25 Loc: US Attending Dr: Regina Cummins Ordering Physician: Regina Cummins Date of Service: 04/05/25 Procedure(s): US OB growth Accession Number(s): [id number] cc: Regina Cummins; Physician,Non-Staff M.D. The [address] [address] Patient Name: VINNY HERRERA MRN: [id number] date: 2000 Sex: F Assigned Patient Location: US Current Patient Location: LAB Accession/Order Number: [id number] Exam Date: 04/05/2025 10:00 Report Date: 04/05/2025 [...] Peraza M.D. 04/05/2025 12:08 PM Dictation Location: [place] [address] Electronically authenticated by: [id number] Y Date: 2:08 Dictated By: Daryn Peraza D.O. Signed By:04/05/25 1211 DD/ 1208 TD/TT: Administrative Director: Authorizing ProviderResult TypeResult StatusAmy [facility] IMAGINGFinal Result * (ABNORMAL) ALL CBC WITH AUTO DIFF (04/05/2025 10:33 AM EDT)ComponentValueRef RangeTest MethodAnalysis TimePerformed AtPathologist SignatureTBH WBC11.04.0 - 11.0 10 3/uLTBHTBH RBC3.47(L)4.20 - 5.40 10 6/uLTBHTBH HGB10.3(L)12.0 - 16.0 g/dLTBHTBH HCT30.7(L)36.0 - 48.0 %TBHTBH MCV88.581.0 - 99.0 fLTBHTBH MCH29.7 26.7 - 34.0 pgTBHTBH MCHC33.629.9 - 35.2 g/dLTBHTBH RDW12.811.0 - 15.0 %TBHTBH KYH874043 - 450 10 3/uLTBHTBH MPV8.7(L)9.5 - 13.5 [...] G PACLINISYNCFinal Result Performing OrganizationAddressCity/State/ZIP CodePhone Number [facility] * URINARY TRACT INFECTION (HTRX) (04/03/2025 3:53 PM EDT)ComponentValueRef Range Test MethodAnalysis TimePerformed AtPathologist SignatureACINETOBACTER FLUWGSEW790.961 - 24.689 ppm04/04/2025 7:51 AM EDTHealth[facility] ACINETOBACTER BAUMANIINot Rydveezi54.961 - 24.689 ppm04/04/2025 7:51 AM EDT [facility] LabPortCITROBACTER BSUFDXCI414.000 - 32.015 ppm04/04/2025 7:51 AM EDTHealthTrackRx at LabPortCITROBACTER FREUNDIINot Zkglcwbs57.000 - 32.015 ppm04/04/2025 7:51 AM EDTHealthTrackRx at LabPortENTEROBACTER AEROGENES, BEMRPGN155.000 - 32.290 ppm04/04/2025 7:51 AM EDTHealthTrackRx at LabPortENTEROBACTER AEROGENES, CLOACAENot Pvthgyhz51.000 - 32.290 ppm 04/04/2025 7:51 AM EDTHealthTrackRx at LabPortENTEROCOCCUS FAECALIS, FAECIUM0 26.000 - 33.043 ppm04/04/2025 7:51 AM EDTHealthTrackRx at LabPortENTEROCOCCUS FAECALIS, FAECIUMNot Npsilzvo77.000 - 33.043 ppm04/04/2025 7:51 AM EDT [facility] LabPortESCHERICHIA KOIW439.000 - 28.500 ppm04/04/2025 7:51 AM EDTHealthTrackRx at LabPortESCHERICHIA COLINot Imbzspqa82.000 - 28.500 ppm 04/04/2025 7:51 AM EDTHealthTrackRx at LabPortKLEBSIELLA PNEUMONIAE, OXYTOCA0 23.000 - 31.865 ppm04/04/2025 7:51 AM EDTHealthTrackRx at LabPortKLEBSIELLA PNEUMONIAE, OXYTOCANot Lgggxctm13.000 - 31.865 ppm04/04/2025 7:51 AM EDT [facility] LabPortMORGANELLA HWSPFQDV491.961 - 24.689 ppm04/04/2025 7:51 AM EDTHealthTrackRx at LabPortMORGANELLA MORGANIINot Dodyrxul92.961 - 24.689 ppm04/04/2025 7:51 AM EDTHealthTrackRx at LabPortPROTEUS MIRABILIS, VULGARIS0 23.000 - 28.500 ppm04/04/2025 7:51 AM EDTHealthTrackRx at LabPortPROTEUS MIRABILIS, VULGARISNot Bmqqrbwc93.000 - 28.500 ppm04/04/2025 7:51 AM EDT [facility] LabPortPSEUDOMONAS KKMYNAZVVQ179.000 - 31.801 ppm04/04/2025 7:51 AM EDTHealthTrackRx at LabPortPSEUDOMONAS AERUGINOSANot Kyoipjep87.000 - 31.801 ppm04/04/2025 7:51 AM EDTHealthTrackRx at LabPortSTAPHYLOCOCCUS AUREUS0 26.000 - 31.595 ppm04/04/2025 7:51 AM EDTHealth[facility] STAPHYLOCOCCUS AUREUSNot Ffgtokmk59.000 - 31.595 ppm04/04/2025 7:51 AM EDT [facility] LabPortSTREPTOCOCCUS AGALACTIAE (GROUP B STREP)026.000 - 32.435 ppm04/04/2025 7:51 AM EDTHealthTrackRx at LabPortSTREPTOCOCCUS AGALACTIAE (GROUP B STREP)Not Rabrytbf45.000 - 32.435 ppm04/04/2025 7:51 AM EDTHealthTrackRx at LabPortCANDIDA ALBICANS, PARAPSILOSIS, WTUOXZDYUS778.000 - 30.347 ppm04/04/2025 7:51 AM EDTHealthTrackRx at LabPortCANDIDA ALBICANS, PARAPSILOSIS, TROPICALISNot Rrljqago66.000 - 30.347 ppm04/04/2025 7:51 AM EDT [facility]PortCANDIDA RMNXLWVX363.000 - 31.618 ppm04/04/2025 7:51 AM EDTHealthTrackRx at LabPortCANDIDA GLABRATANot Freweeny54.000 - 31.618 ppm 04/04/2025 7:51 AM EDTHealthTrackRx at LabPortCANDIDA GQNEBL554.000 - 30.873 ppm04/04/2025 7:51 AM EDTHealthTrackRx at LabPortCANDIDA KRUSEINot Detected 23.000 - 30.873 ppm04/04/2025 7:51 AM EDTHealthTrackRx at LabPortSERRATIA LFHFTRHJVG800.000 - 31.581 ppm04/04/2025 7:51 AM EDT[facility] SERRATIA MARCESCENSNot Ibsbpdqe15.000 - 31.581 ppm04/04/2025 7:51 AM EDT [facility] LabPortSTREPTOCOCCUS PYOGENES (GROUP A STREP)019.961 - 24.689 ppm04/04/2025 7:51 AM EDTHealthTrackRx at LabPortSTREPTOCOCCUS PYOGENES (GROUP A STREP)Not Cptfuqxx24.961 - 24.689 ppm04/04/2025 7:51 AM EDTHealthTrackRx at LabPortSTAPHYLOCOCCUS EPIDERMIDIS, HAEMOLYTICUS, LUGDUNENSIS, SAPROPHYTICUS (UPTGO948.961 - 24.689 ppm04/04/2025 7:51 AM EDT[facility] STAPHYLOCOCCUS EPIDERMIDIS, HAEMOLYTICUS, LUGDUNENSIS, SAPROPHYTICUS (URINANot Hmgjrtlx42.961 - 24.689 ppm04/04/2025 7:51 AM EDT[facility] STAPHYLOCOCCUS EPIDERMIDIS, HAEMOLYTICUS, LUGDUNENSIS, SAPROPHYTICUS (URINA0 19.961 - 24.689 ppm04/04/2025 7:51 AM EDT[facility] at [facility] STAPHYLOCOCCUS EPIDERMIDIS, HAEMOLYTICUS, LUGDUNENSIS, SAPROPHYTICUS (URINANot Nsjwzjgh82.961 - 24.689 ppm04/04/2025 7:51 AM EDTHealth[facility] at [facility] Specimen (Source)Anatomical Location / LateralityCollection Method / Volume Collection TimeReceived BbbbTfsly42/11/2025 3:53 PM EDT04/04/2025 1:35 AM EDT Narrative Authorizing ProviderResult TypeResult StatusAmy Maple PAL BLOOD ORDERABLES Final ResultPerforming OrganizationAddressCity/State/ZIP CodePhone Number [facility] [address] [address] from Last 3 Months Additional Health Concerns Active ProblemsNoted DateDiagnosed DateOB Nxhthhbjr74/09/2025 Insurance
--- OUTSIDE RECORDS SUMMARY | 2025-05-28 15:26 | XMS_ITS | Clinical Summary ---
Author Organization [facility] Address [address] [address] Care Team Providers Care Director Of Psychology Name Role Phone Ynes Mistry EDGE GRINDER Primary Care Provider Allergies No known active [...] anemia s/p -hgb 10.8 per recent labs Tqsdguxjikzw78/28/2023 Assessment & Plan (03/30/2023 1:01 PM EDT): - 30-day event monitor - we will hold off on starting medication until follow-up Abnormal glucose levelHeartburn Mfchhlbldaf44yspareunia in cgwfoy70Frequent UTInxiety Assessment & Plan (03/30/2023 1:01 PM EDT): - takes sertraline 50 mg daily Seasonal allergic jpnjtqvf78Insomnia due to other mental httccwlz82Other jlxelae90 Assessment & Plan (03/30/2023 1:02 PM EDT): - could be related to being , anemia -monitor and echo to rule out cardiac concern Encounters DateTypeDepartmentCare JltlNxvlspcyquz52/05/2025Telephone [facility] [address] [place] [address] Cailin Ryan MA from Last 3 Months Family History Medical HistoryRelationNameCommentsHyperlipidemiaFatherSupraventricular tachycardiaFatherAnemiaMotherDiabetesSisterRelationNameStatusCommentsFather MotherSister Social History Tobacco UseTypesPacks/DayYears UsedDateSmoking Tobacco: NeverSmokeless Tobacco: Never Tobacco Cessation:Counseling Given: Not Answered Alcohol UseStandard Drinks/WeekCommentsNot Currently0 (1 standard drink = 0.6 oz pure alcohol)SC Safety & EnvironmentAnswerDate RecordedFear of Current or Ex-PartnerNot on file09/15/2023Emotionally AbusedNot on file09/15/2023hysically AbusedNot on file09/15/2023Sexually AbusedNot on file09/15/2023hysically or Sexually AbusedNot on file09/15/2023CommentsUnknownSex and Gender InformationValueDate RecordedSex Assigned at BirthNot on fileLegal SexFemale 03/17/2023 11:34 AM EDTGender IdentityNot on fileSexual OrientationNot on file Last Filed Vital Signs Vital SignReadingTime TakenCommentsBlood Hogjqsir575/7607/11/2023 4:27 PM EST Drabg871307/11/2023 4:27 PM ESTTemperature--Respiratory Rate--Oxygen Vwkqvrqsgb77% 07/11/2023 4:27 PM ESTInhaled Oxygen Concentration--Qpiffj55.7 kg (211 lb) 07/11/2023 4:27 PM XRIHqwqtt274.6 cm (5' 6 )07/11/2023 4:27 PM ESTBody Mass Index34.0607/11/2023 4:27 PM EST Plan of Treatment Health MaintenanceDue DateLast DoneCommentsDepression Wjttfpjds21/17/2011dult Kelihrs36/COVID-19 Vaccine (3 - 2024- season)2025 12/29/2020, 12/07/2020Influenza Vaccine (#1)2025Pap Smear04/18/2025 04/18/2022Zoster Vaccines (1 of 2)9002/09/2011, 12/22/1999HIB Vaccines Orcjdjgzu42/21/2000, 03/12/1999, 01/18/1999, Additional history existsIPV QdoextdvAdlglfida32/29/2004, 03/13/2000, 01/18/1999, Additional history exists Varicella OhznfbvzUmlbxfktz07/20/2011, 12/22/1999Meningococcal VaccineCompleted 03/11/2016, 2014, 01/12/2011HPV UvvoeoupQamelkpby25/28/2018, 05/01/2017, 02/24/2017Meningococcal B VaccineAged OutNo longer eligible based on patient's age to complete this topicPneumococcal Vaccine: Pediatrics (0 to 5 Years) and At-Risk Patients (6 to 64 Years)Aged OutNo longer eligible based on patient's age to complete this topicRotavirus VaccinesAged OutNo longer eligible based on patient's age to complete this topic Insurance Care Teams Team MemberRelationshipSpecialtyStart DateEnd Date Ynes Mistry, EDGE GRINDER [address] [place] [address] [facility] [address] [place] [address] [facility]03/20/23
--- OUTSIDE RECORDS SUMMARY | 2025-05-28 15:26 | XMS_ITS | Clinical Summary ---
Author Organization [facility] Address [address] [place], [place] [id number] Care Team Providers Care Forcer Maker Name Role Phone Unavailable Primary Care Provider Unavailabl e Allergies No known active allergies Medications MedicationSigDispense QuantityRefillsLast FilledStart DateEnd DateStatus benzonatate (TESSALON PERLE) 100 mg capsule Take 1-2 capsules every 8 hours as needed. 60 capsule 4Active Active Problems No known active problems Social History Tobacco UseTypesPacks/DayYears UsedDateSmoking Tobacco: Never Assessed CommentsUnknownSex and Gender InformationValueDate RecordedSex Assigned at Not on fileLegal VqqQbhlhv98/14/2024 10:20 AM ESTGender IdentityNot on file Sexual OrientationNot on file Plan of Treatment Health MaintenanceDue DateLast DoneCommentsPeds To Adult Transition Initial Hidktodars01/17/2011Peds To Adult Transition Annual Zudzkltmeh37/17/2013nxiety Smotxyzbd06/17/2017Depression Ibrlkkhow93/17/2017HIV Eplpesiha75/17/2017 Hepatitis C Jmzfrwixi84/17/2017Cervical Cancer Hpehnbaid57/17/2020DTaP,Tdap,Td Vaccine (7 - Td or Tdap), 11/20/2003, 03/13/2000, Additional history existsCovid-19 Vaccine ( season)/02/2021, 12/07/2020Influenza Vaccine (#1)2025Hepatitis B VaccineCompleted 06/09/1999, 1998, 1998HPV CpvpjghFcqntfexr07/28/2018, 05/01/2017, 02/24/2017 Insurance
--- OUTSIDE RECORDS SUMMARY | 2025-05-28 15:26 | XMS_ITS | Clinical Summary ---
Author Organization [facility] Address [address], [address] [place] [address] Care Team Providers Care Contract Negotiation Specialist Name Role Phone Ynes Mistry SLURRY PLANT OPERATOR - CARTON FORMING MACHINE HELPER Primary Care Provide r Allergies No known [...] [address] 200 mg vaginally munalan62/26/2025Active sertraline (ZOLOFT) 25 MG tablet TAKE 1 TABLET BY MOUTH EVERY DAY 30 tablet 5Active sertraline (ZOLOFT) 25 MG tablet Take 1 tablet by mouth daily 30 tablet Discontinued Active Problems ProblemNoted DateDiagnosed DateGastroesophageal reflux hsnnwlm8811/12/2024Other hyperlipidemia [E78.49]06/04/20240986Vcepoim95/12/2024Hepatic wfqqyiqzw78/14/2024 Elevated liver uetrxgl0303/01/2024Mixed himtxbejypfrbt06/30/2024Iron deficiency rfuzdy0710/25/2023Gestational diabetes mellitus (GDM) affecting second 07/24/20222415Dokoqok16/07/2020Seasonal allergic ayyuqkfp05/07/2020Other fatigue 05/02/2020 Resolved Problems ProblemNoted DateDiagnosed DateResolved DateSore qitpxt85503/ne /Irregular opaplc50/Frequent UTI11/30/2020 02/20/2024yspareunia in yshskm83/Insomnia due to other mental jbuwaewb32 Encounters DateTypeDepartmentCare RjvzSqqanxuywhx42/05/2025Refill [address] [place] [address] Ynes Mistry, SLURRY PLANT OPERATOR - CARTON FORMING MACHINE HELPER Medication Boyscq6505/22/2025Orders Only [address] [place] [address] Ynes Mistry, SLURRY PLANT OPERATOR - CARTON FORMING MACHINE HELPER 05/13/2025Orders Only [address] [place] [address] ProviderYuval MD 05/01/2025Orders Only [address] [place] [address] Provider, MD Yuval from Last 3 Months Immunizations ImmunizationAdministration DatesNext DueCOVID-19, Inactive, PFIZER PURPLE top, DILUTE for use, (age 12 y+)12/29/2020,4613BInR75/29/2004,03/13/2000, 03/12/1999,01/18/1999,1998DTaP, INFANRIX, (age 6w-6y), IM, 0.5mL11/20/2003 ,03/13/2000,03/12/1999,01/18/1999,1998HPV [...] drink = 0.6 oz pure alcohol)[facility] UtilitiesAnswerDate RecordedIn the past 12 months has the [employer], gas, oil, or water [employer] threatened to shut off services in your home?No10/07/2024Overall Financial Resource Strain (CARDIA)AnswerDate Recorded How hard is it for you to pay for the very basics like food, housing, medical care, and heating?Not hard at all07/13/2023HQ-2AnswerDate RecordedPHQ-9 Total Enfxm752Hunger Vital SignAnswerDate RecordedWithin the past 12 months, [...] were you homeless or living in a nursing home (including now)?No10/07/2024Food InsecurityAnswerDate RecordedWithin the past 12 months, you worried that your food would run out before you got the money to buymore.Within the past 12 months, the food you bought just didn't last and you didn't have money to get more.CommentsNoSex and Gender InformationValueDate RecordedSex Assigned at WkimhKoroqr81/28/2024 8:24 PM EDTLegal YfxVmljrd46/10/2013 3:31 PM ESTGender MxzuzbczPsfjxk02/28/2024 8:24 PM EDTSexual OrientationNot on file Last Filed Vital Signs Vital SignReadingTime TakenCommentsBlood Tzgjsuxc489/7204 11:39 AM EDT Txsin5552 11:39 AM MZVHsndceteeyn46.1 ??C (96.9 ??F)11/12/2024 11:39 AM EDTRespiratory Vhuf913010/07/2024 1:43 PM EDTOxygen Vmtkzyupie02%11/12/2024 11:39 AM EDTInhaled Oxygen Concentration--Ozkojt31.1 kg (203 lb)11/12/2024 11:39 AM GXPLumban157.1 cm (5' 5 )10/07/2024 1:43 PM EDTBody Mass Index33.78010/07/2024 1:43 PM EDT Plan of Treatment Health MaintenanceDue DateLast DoneCommentsDTaP/Tdap/Td vaccine (7 - Td or Tdap) /, 11/20/2003, 11/20/2003, Additional history existsFlu vaccine (#1)5COVID-19 Vaccine (3 - season)/02/2021, 12/07/2020epression Mdsynh57601/, 08/07/2024Pap smear07/15/2027 07/15/2024, 07/15/2023, 07/05/2023, Additional history existsHepatitis B vaccine Xtmtgkcrw51/17/1999, 1998, 1998Hib ozuolydDlkrybirh05/21/2000, 03/12/1999, 01/18/1999, Additional history existsPolio vaccineCompleted 11/20/2003, 03/13/2000, 01/18/1999, Additional history existsVaricella vaccine Ihvmvmthm41/20/2011, 12/22/1999Hepatitis A ecxjlvtKpdrlagbr93/27/2012, 08/19/2011, 02/09/2011, Additional history existsMeningococcal (ACWY) vaccine Tsundjjbi30/19/2016, 2014, 01/12/2011HPV zxnthfqBjaawxjga48/28/2018, 05/01/2017, 02/24/2017HIV jkoxmyRsroxepjb56/12/2020Chlamydia/GC screen Rdcctlxotgop00/29/2021, 03/03/2020, 02/21/2019, Additional history exists Hepatitis C yiuwoeSijyasbkr46/27/2024Depression MonitoringDiscontinued 08/07/2024, 08/07/20242588LmbftzIwwrdutnxsyw84/27/2025, 05/20/2024, 02/16/2024, Additional history existsMeningococcal B vaccineAged OutNo longer eligible based on patient's age to complete this topicPneumococcal 0-49 years VaccineAged Out No longer eligible based on patient's age to complete this topic Procedures Procedure NamePriorityDate/TimeAssociated DiagnosisCommentsBIOPHYSICAL PROFILE Ycolqri52/29/2025CHG BIOPHYSICAL PROFILE NON-STRESS TESTINGRoutine 05/07/2025 3:54 PM EDTBIOPHYSICAL PROFILE W/STHNyyhikc67/08/2025 11:39 AM EDTHM PAP LVOOXRaebhad77/23/2024 LIPID HVMAJAbvltbu75/28/2024 9:59 AM EDT Mixed hyperlipidemia HEPATITIS C RUPQFZGFWmbbdpf15/27/2024 8:25 AM EDT Need for hepatitis C screening test Wellness examination C.TRACHOMATIS N.GONORRHOEAE DNA, HSSPAMglcsoe02/29/2021 1:57 PM EDT Frequent UTI HIV VINURUEoewson56/12/2020 3:27 PM EDT Encounter for screening for [...] Time07/15/2024 Narrative Authorizing ProviderResult TypeResult StatusHistorical Provider KAILEE MAINTENANCEEdited Result - Final * Hepatitis C Antibody (10/18/2023 8:25 AM EDT)ComponentValueRef RangeTest MethodAnalysis TimePerformed AtPathologist SignatureHepatitis C AbNONREACTIVE AWEMPRYXFBQ32/27/2024 8:25 AM EDTMERCY LABORATORIESComment: ? The hepatitis [...] / Volume Collection TimeReceived TimeBloodBLOOD SPECIMEN / Xnuwkbc0610/18/2023 8:25 AM EDT 10/18/2023 8:26 AM EDT Narrative Authorizing ProviderResult TypeResult StatusYnes Dalila Fede SLURRY PLANT OPERATOR - CNPIMMUNOLOGY ORDERABLESFinal ResultPerforming OrganizationAddressCity/State/ZIP CodePhone Number [facility] [address] [place] [address], [facility] [phone] [place] [address] [place] [address], [facility] [phone] * C.trachomatis N.gonorrhoeae DNA, Urine (11/19/2020 1:57 PM EDT)ComponentValue Ref RangeTest MethodAnalysis TimePerformed AtPathologist SignatureSpecimen Description.URINE11/19/2020 1:57 PM EDTMERCY LABORATORIESC. trachomatis DNA ,LmtxhNZOAOPLHQFZSYUHK53/29/2021 1:57 PM EDTMERCY LABORATORIESComment: CHLAMYDIA TRACHOMATIS DNA [...] alternative nucleic acid target. N. gonorrhoeae DNA, AsclbVYDONNKUZFYUSUYL73/29/2021 1:57 PM EDTMERCY LABORATORIESComment: NEISSERIA GONORRHOEAE DNA [...] / LateralityCollection Method / Volume Collection TimeReceived ImqeJwkhx17/29/2021 1:57 PM EDT11/19/2020 1:57 PM EDT Narrative Authorizing ProviderResult TypeResult StatusLorena Ricks SLURRY PLANT OPERATOR - CARTON FORMING MACHINE HELPER MICROBIOLOGY - GENERAL ORDERABLESFinal ResultPerforming OrganizationAddress City/State/ZIP CodePhone Number [place] [phone] [id number] [place] [address] * HIV Screen (05/04/2020 3:27 PM EDT)ComponentValueRef RangeTest MethodAnalysis TimePerformed AtPathologist SignatureHIV Ag/AuUAUBKQYZKYCHRWXDSYDZLF97/12/2020 3:27 PM EDTMERCY LABORATORIESComment: No laboratory evidence of HIV infection. ??If acute HIV infection is suspected, consider testing for HIV-1 RNA. Specimen (Source)Anatomical Location / LateralityCollection Method / Volume Collection TimeReceived TimeBLOOD SPECIMEN / Leekxxk3505/04/2020 3:27 PM EDT 05/04/2020 3:28 PM EDT Narrative Authorizing ProviderResult TypeResult StatusYnes Mistry APRN - CNPIMMUNOLOGY ORDERABLESFinal ResultPerforming OrganizationAddressCity/State/ZIP CodePhone Number [address] [phone] [phone] from Last 3 Months or Most Recently Relevant to Health Maintenance Insurance Care Teams Team MemberRelationshipSpecialtyStart DateEnd Date Ynes Mistry APRN - CARTON FORMING MACHINE HELPER [address] [place] [id number] PCP - GeneralFamily Nurse Practitioner08/02/22
--- OUTSIDE RECORDS SUMMARY | 2025-05-28 15:26 | XMS_ITS | Encounter Summary ---
Author Organization [facility] Address [address], [address] [place] [address] Care Team Providers Care Tobacco Shaker Name Role Phone Ynes Mistry SWITCHMAN SUPERVISOR - BUTADIENE CONVERTER OPERATOR Primary Care Provide r Reason for Visit * ReasonCommentsMedication Refill Encounter Details DateTypeDepartmentCare Team (Latest Contact Info)Quevsbhyrul11/05/2025Ref[facility] [address] [place] [address] [address] [place] [address] Ynes Mistry SWITCHMAN SUPERVISOR - BUTADIENE CONVERTER OPERATOR [address] [place] [address] [address] [place] [phone] Medication Refill Social History Tobacco UseTypesPacks/DayYears UsedDateSmoking Tobacco: NeverSmokeless Tobacco: NeverAlcohol UseStandard Drinks/WeekCommentsNot Currently0 (1 standard drink = 0.6 oz pure alcohol)socialAH UtilitiesAnswerDate RecordedIn the past 12 months has the electric, gas, oil, or water [employer] threatened to shut off services in your home?No10/07/2024Overall Financial Resource Strain (CARDIA)AnswerDate RecordedHow hard is it for you to pay for the very basics like food, housing, medical care, and heating?Not hard at all07/13/2023HQ-2AnswerDate RecordedPHQ-9 Total Krafd497Hunger Vital SignAnswerDate RecordedWithin the past 12 months, [...] steady place to sleep or slept in [facility] (including now)?No07/13/2023Housing Stability Vital SignAnswerDate RecordedIn the last 12 months, was there a time when you were not able to pay the mortgage or rent on time?No10/07/2024In the past 12 months, how many times have you moved where you were living? At any time in the past 12 months, were you homeless or living in a intermediate (including now)?No10/07/2024Food InsecurityAnswerDate RecordedWithin the past 12 months, you worried that your food would run out before you got the money to buy more.Within the past 12 months, the food you bought just didn't last and you didn't have money to get more.CommentsNoSex and Gender InformationValueDate RecordedSex Assigned at ZzbscSwfvwo54/28/2024 8:24 PM EDTLegal SbxTwbsku45/10/2013 3:31 PM ESTGender GaqcuewwBvzasf33/28/2024 8:24 PM EDTSexual OrientationNot on filedocumented as of this encounter Plan of Treatment Not on file documented as of this encounter Visit Diagnoses Not on filedocumented in this encounter Care Teams Team MemberRelationshipSpecialtyStart DateEnd Date Ynes Mistry, SWITCHMAN SUPERVISOR - BUTADIENE CONVERTER OPERATOR [address] [facility] [place] [address] PCP - GeneralFamily Nurse Practitioner08/02/22documented as of this encounter
--- OUTSIDE RECORDS SUMMARY | 2025-05-28 15:26 | XMS_ITS | Encounter Summary ---
Author Organization [facility] Address [address] [place] [address] Care Team Providers Care String Studies Director Name Role Phone Unavailable Primary Care Provider Unavailabl e Encounter Details DateTypeDepartmentCare Team (Latest Contact Info)Ccusagjnzfj08/22/2025amboo flowsheet [facility] [address] [place] [address] Mukul Foy DO [address] [place] [address] Dr [place], [facility] Social History Tobacco UseTypesPacks/DayYears UsedDateSmoking Tobacco: NeverSmokeless Tobacco: NeverAlcohol UseStandard Drinks/WeekCommentsNever0 (1 standard drink = 0.6 oz pure alcohol)Estimated Date of HcudpprcPxhnbydvZxz26/01/2025Based on last menstrual period of 09/16/2024Sex and Gender InformationValueDate Recorded Sex Assigned at BirthNot on fileLegal GexHyaaxl38/15/2023 11:47 PM EDTGender IdentityNot on fileSexual OrientationNot on filedocumented as of this encounter Plan of Treatment DateTypeDepartmentCare Team (Latest Contact Info)Eudflvbcltj00/10/2025 1:00 PM ESTRoutine [facility] [address] [facility] [place] [address] Mukul Foy DO [address] [place], [place] [id number] 07/28/2025 4:00 PM ESTOffice Visit [facility] [address] [facility] [place] [address] Mukul Foy DO [address] [place] [address] documented as of this encounter Goals GoalPatient Goal TypeAssociated ProblemsRecent ProgressPatient-Stated?Author Reminders Care PlanOB RemindersNoOpen Scheduling, Backgrounddocumented as of this encounter Visit Diagnoses Not on filedocumented in this encounter Additional Health Concerns Active ProblemsNoted DateDiagnosed DateOB Uqaqovibh95/09/2025 documented as of this encounter
--- OUTSIDE RECORDS SUMMARY | 2025-05-28 15:26 | XMS_ITS | Encounter Summary ---
Author Organization [facility] Address [address] [place] [address] Care Team Providers Care Counter Pocket Trimmer Name Role Phone Ynes Mistyr CYTOTECHNOLOGIST SUPERVISOR - PAWN SHOP KEEPER Primary Care Provide r Encounter Details DateTypeDepartmentCare Team (Latest Contact Info)Fiyjmdukjgl72/30/2025Orders Only [facility] [address] [place] [address] [address] [place] [address] Ynes Mistry, CYTOTECHNOLOGIST SUPERVISOR - PAWN SHOP KEEPER [address] [place] [phone] Social History Tobacco UseTypesPacks/DayYears UsedDateSmoking Tobacco: NeverSmokeless Tobacco: NeverAlcohol UseStandard Drinks/WeekCommentsNot Currently0 (1 standard drink = 0.6 oz pure alcohol)socialUC HEALTH UtilitiesAnswerDate RecordedIn the past 12 months has the electric, gas, oil, or water company threatened to shut off services in your home?No10/07/2024Overall Financial Resource Strain (CARDIA)AnswerDate RecordedHow hard is it for you to pay for the very basics like food, housing, medical care, and heating?Not hard at all07/13/2023HQ-2AnswerDate RecordedPHQ-9 Total Rahdh933Hunger Vital SignAnswerDate RecordedWithin the past 12 months, [...] steady place to sleep or slept in [place] (including now)?No07/13/2023Housing Stability Vital SignAnswerDate RecordedIn the last 12 months, was there a time when you were not able to pay the mortgage or rent on time?No10/07/2024In the past 12 months, how many times have you moved where you were living? At any time in the past 12 months, were you homeless or living in a long term (including now)?No10/07/2024Food InsecurityAnswerDate RecordedWithin the past 12 months, you worried that your food would run out before you got the money to buy more.Within the past 12 months, the food you bought just didn't last and you didn't have money to get more.CommentsNoSex and Gender InformationValueDate RecordedSex Assigned at QnaupIlaiyf54/28/2024 8:24 PM EDTLegal UvkKxhsce80/10/2013 3:31 PM ESTGender TefgsqaaZactwk96/28/2024 8:24 PM EDTSexual OrientationNot on filedocumented as of this encounter Plan of Treatment Not on file documented as of this encounter Procedures Procedure NamePriorityDate/TimeAssociated DiagnosisCommentsBIOPHYSICAL PROFILE Gifoqsy9005/21/2025documented in this encounter Results * Biophysical profile (05/21/2025) Narrative Authorizing ProviderResult TypeResult StatusHistorical Provider MDOB GYNE ORDERABLESFinal Result documented in this encounter Visit Diagnoses Not on filedocumented in this encounter Care Teams Team MemberRelationshipSpecialtyStart DateEnd Date Ynes Mistry, CYTOTECHNOLOGIST SUPERVISOR - PAWN SHOP KEEPER [address] [place] [address] [place] [address] PCP - GeneralFamily Nurse Practitioner08/02/22documented as of this encounter
--- OUTSIDE RECORDS SUMMARY | 2025-05-28 15:29 | XMS_ITS | CCD ---
Author Organization [facility] Care Team Providers Care Sanding Line Operator Name Role Phone Jannette Peña I Primary Care Provider Ynes Rodriguez Primary Care Provider [facility] Primary Care Provide r LAW, MUKUL R Admitting Unavailable LAW, MUKUL R Primary Care Unavailable LAW, MUKUL R Admitting Unavailable LAW, MUKUL R Primary Care Unavailable LAW, MUKUL R Admitting Unavailable LAW, MUKUL R Primary Care Unavailable BERTO LIVE Admitting Unavailabl e LAW, MUKUL R Primary Care Unavailable Fede DIRECTOR OF STRATEGIC MARKETING - INSERTING MACHINE OPERATOR, Ynes Conner Primary Care Provide r Unavailable Primary Care Provider Unavailabl e LAW ., DR DE LA TORRE Attending Unavailable MISC, DR YAÑEZ Primary Care Unavailable [place], DR YELENA Henao Consulting Unavailable LAW ., [...] Unavailable MISC, DR YAÑEZ Primary Care Unavailable [place], DR YELENA Henao Consulting Unavailable LAW ., [...] mg oral tablet (1 source)HMG-CoA Reductase InhibitorStart: 89-56-7868detg 1 tablet by mouth once dailyatorvastatin (LIPITOR) 10 MG tablet Take 1 tablet by mouth daily 30 tablet 5 02/20/2024 Activecephalexin 500 mg oral capsule (4 sources)Cephalosporin AntibacterialStart: 04-03-2025 End: 96-54-6830obtb 1 capsule by mouth in the morning, [...] mg oral tablet (8 sources)Histamine-1 Receptor AntagonistStart: 44-63-2127jhkb 1 tablet by mouth once dailycetirizine (ZYRTEC) 10 MG tablet Take 1 tablet by mouth daily 90 tablet 3 03/12/2021 ActiveStart: 33-19-6687nwdo 1 tablet by mouth once daily cetirizine (ZYRTEC) 10 MG tablet Take 1 tablet by mouth daily 90 tablet 3 06/29/2020 Activedrospirenone 4 mg oral tablet (1 source)ProgestinStart: 74-21-7812qefl 1 tablet by mouth once daily Drospirenone (SLYND) 4 MG TABS Indications: Irregular menses Take 1 tablet by mouth daily 84 tablet4 05/12/2021 Activedrospirenone 3 mg / ethinyl estradiol 0.03 mg oral tablet (9 sources)Progestin, EstrogenStart: 08-35-6179IYXQP 3-0.03 MG TABS Indications: Irregular menses TAKE 1 TABLET DAILY 84 tablet 0 05/03/2021 ActiveStart: 85-71-4104ukqt 1 tablet by mouth once dailydrospirenone-ethinyl estradiol (CHANDANA 28) 3-0.03 MG TABS Indications: Irregular menses Take 1 tablet by mouth daily 3 packet 4 03/03/2020 ActiveEthinyl Estradiol / Ferrous fumarate / Norethindrone (6 sources)EstrogenStart: 77-37-9227ATORF FE 24 1-20 MG-MCG(24) TABS Indications: DUB (dysfunctional uterine bleeding) TAKE 1 TABLET DAILY 84 tablet 1 08/27/2018 ActiveStart: 96-96-9027lqah 1 tablet by mouth once dailyNorethin David-Eth Estrad-FE 1-20 MG-MCG(24) TABS Indications: Irregular menses Take 1 tablet by mouth daily 28 tablet 12 05/04/2018 ActiveStart: 65-07-2571njmz 1 tablet by mouth once dailyNorethin David-Eth Estrad-FE (JUNEL FE 24) 1-20 MG- MCG(24) TABS Indications: Irregular menses Take 1 tablet by mouth daily 84 tablet 3 07/21/2017 Activefexofenadine / Pseudoephedrine (2 sources)alpha-Adrenergic Agonist, Histamine-1 Receptor Antagonist Fexofenadine-Pseudoephedrine (JOSÉ MIGUEL-D PO) Take by mouth 0 Activefluconazole 150 mg oral tablet (1 source)Azole AntifungalStart: 12-63-9528tzvq 1 tablet by mouth once daily as [...] pen injector (13 sources)Insulin AnalogStart: 05-14-2025 End: 15-68-7854gldpzkj glargine (Lantus SoloStar) 100 UNIT/ML pen Indications: Hyperglycemia Inject 15 Units underthe skin at bedtime FILL ACCORDING TO INSURANCE COVERAGE 3 mL 05/14/2025 06/13/2025 ActiveStart: 04-07-2025 End: 25-20-1528sbhbny 10 [IU] by subcutaneous injection at bedtimeinsulin glargine (Lantus SoloStar) 100 UNIT/ML pen Indications: Hyperglycemia Inject 10 Units underthe skin at bedtime FILL ACCORDING TO INSURANCE COVERAGE 3 mL 04/07/2025 05/14/2025 Discontinued (Reorder)loratadine 10 mg oral capsule (2 sources)take 1 capsule by mouth once dailyloratadine (CLARITIN) 10 MG capsule Take 10 mg by mouth daily 0 Uhjqlt56 hr metFORMIN hydrochloride 500 mg extended release oral tablet (20 sources)BiguanideStart: 02-11-2025 End: 08-19-2931ffjg 2 tablets by mouth every twenty-four hours at mealtime metFORMIN XR (Glucophage-XR) 500 MG 24 hr tablet Indications: Second trimester ([facility]) , 20 weeks gestation of ([facility]) Take 2 tablets (1,000 mg) by mouth in the evening. Take with meals 60 tablet 5 02/11/2025 08/10/2025 ActiveStart: 11-05-2024 End: 23-76-1022lwaw 1 tablet by mouth every twenty-four hours in the morning metFORMIN XR (Glucophage-XR) 500 MG 24 hr tablet Take 1,000 mg by mouth in the morning and 1,000 mgin the evening. 11/05/2024 02/11/2025 Discontinued (Reorder) Start: 11-05-2024 End: 57-74-9919ksjGKSMDT (GLUCOPHAGE-XR) 500 MG extended release tablet Indications: BMI 37.0-37.9, adult , Class 2 obesity with body mass index (BMI) of 37.0 to 37.9 in adult, unspecified obesity type, unspecifiedwhether serious comorbidity present TAKE 2 TABLETS BY MOUTH IN THE MORNING AND AT BEDTIME 120 tablet 5 11/05/2024 05/04/2025 ActiveStart: 04-26-2024 End: 98-79-9442htfAUQXRF (GLUCOPHAGE-XR) 500 MG extended release tablet Indications: BMI 37.0-37.9, adult , Class 2 obesity with body mass index (BMI) of 37.0 to 37.9 in adult, unspecified obesity type, unspecifiedwhether serious comorbidity present Take 2 tablets by mouth in the morning and at bedtime 360 tablet 1 04/26/2024 10/23/2024 Activemetoclopramide 10 mg oral tablet (18 sources)Dopamine-2 Receptor AntagonistStart: 03-12-2025 End: 63-66-2337wwkeznijcspwun (Reglan) 10 MG tablet Indications: Gastroesophageal reflux [...] 50 mg oral capsule (4 sources)Nitrofuran AntibacterialStart: 96-44-1876qqii 1 capsule by mouth once dailynitrofurantoin (MACRODANTIN) 50 MG capsule Indications: Recurrent UTI Take 1 capsule by mouth nightly 30 capsule 0 03/03/2020 Activepantoprazole 40 mg delayed release oral tablet (20 sources)Proton Pump InhibitorStart: 02-26-2025 End: 48-08-7758wieb 1 tablet by mouth before mealtimepantoprazole (Protonix) 40 MG EC tablet Indications: 23 weeks gestation of ([facility]) , Elevated blood sugar level , Gastroesophageal reflux disease without esophagitis Take 1 tablet (40 mg)by mouth in the morning. Take before meals. Do not crush, chew, or split. 30 tablet 11 02/26/2025 02/26/2026 Activephentermine hydrochloride 37.5 mg oral tablet (1 source)Sympathomimetic Amine AnorecticStart: 05-01-2024 End: 92-09-0403pxtz 37-37.9 tablets by mouth once dailyphentermine (ADIPEX-P) [...] mg oral capsule (12 sources)Start: 04-02-2025 End: 95-39-3488eutw 1 capsule by mouth once dailyiron polysaccharides (ProFe) 391.3 (180 Fe) MG capsule Indications: Dizziness Take 1 capsule (391.3mg) by mouth Daily 30 capsule 6 04/02/2025 05/02/2025 ActiveProbiotic Product (PROBIOTIC ADVANCED PO) (6 sources)Probiotic Product (PROBIOTIC ADVANCED PO) Take by mouth Active Probiotic Product (PROBIOTIC ADVANCED PO) Take by mouth 0 ActiveProgesterone (1 source)ProgesteroneStart: 25-46-1907Viftycavpzeo [address] 200 mg vaginally nightly 10/16/2024 ActiveProgesterone 200 MG suppository (2 sources)Start: 11-14-2024 End: 45-42-9299Xweqxlizzpkj 200 MG suppository Indications: History of miscarriage Insert 200 mg into the vagina at bedtime Insert suppository vaginally every night at bedtime until 12 weeks gestation 30 suppository 2 11/14/2024 12/14/2024 ActiveStart: 10-16-2024 End: 41-80-0473Fpuudowjfrvt 200 MG suppository Indications: History of miscarriage Insert 200 mg into the vagina at bedtime Insert suppository vaginally every night at bedtime until 12 weeks gestation 30 suppository 3 10/16/2024 11/14/2024 Discontinued (Reorder)sertraline 25 mg oral tablet (20 sources)Serotonin Reuptake InhibitorStart: 19-50-4177qntz 1 tablet by mouth once dailysertraline (ZOLOFT) 25 MG tablet Take 1 tablet by mouth daily 30 tablet 5 11/12/2024 ActiveStart: 43-31-3321kwce 1 tablet by mouth once daily in the morningsertraline (Zoloft) 50 MG tablet Indications: Anxiety, generalized TAKE 1 TABLET BY MOUTH EVERY DAYIN THE MORNING 30 tablet 3 10/25/2024 Active Start: 53-62-1709mjrm 1 tablet by mouth once daily in the morningsertraline (Zoloft) 50 MG tablet Indications: Anxiety, generalized (CMS/HCC) TAKE 1 TABLET BY MOUTHEVERY DAY IN THE MORNING 30 tablet 3 06/27/2024 ActiveStart: 10-17-2023 take 1 tablet by mouth once dailysertraline (ZOLOFT) 50 MG tablet Indications: Anxiety Take 1 tablet by mouth daily 30 tablet 10/17/2023 ActiveStart: 05-80-1181cuhv 1 tablet by mouth once dailysertraline (ZOLOFT) 25 MG tablet Indications: Anxiety Take 1 tablet by mouth daily 90 tablet 3 03/29/2022 Active Start: 94-45-3697tqqo 1 tablet by mouth once dailysertraline (ZOLOFT) 25 MG tablet Take 1 tablet by mouth daily 90 tablet 3 03/12/2021 ActiveStart: 90-92-2008ixrr 1 tablet by mouth once dailysertraline (ZOLOFT) 50 MG tablet Take 1 tablet by mouth daily 30 tablet 2 08/17/2020 Activesulfamethoxazole 800 mg / trimethoprim 160 mg oral tablet (2 sources)Dihydrofolate Reductase Inhibitor Antibacterial, Sulfonamide AntimicrobialStart: 00-22-7070kykk 1 tablet by mouth every twelve hours sulfamethoxazole-trimethoprim (BACTRIM DS;SEPTRA DS) 800-160 MG per tablet TAKE 1 TABLET BY MOUTH EVERY 12 HOURS FOR 7 DAYS 0 02/24/2020 ActiveTirzepatide (MOUNJARO) 2.5 MG/0.5ML SOPN SC injection (1 source)Start: 56-43-7736Ypsqwcxkyye (MOUNJARO) 2.5 MG/0.5ML SOPN SC injection Indications: Mixed hyperlipidemia , BMI 37.0-37.9, adult , Class 2 obesity with body mass index (BMI) of 37.0 to 37.9 in adult, unspecified obesity type, unspecified whether serious comorbidity present Inject 0.5 mLs into the skin once a week 4 mL 1 05/01/2024 ActivetraZODone hydrochloride 50 mg oral tablet (1 source)Serotonin Reuptake InhibitorStart: 88-79-4049gnhb 0.5 tablet by mouth once dailytraZODone (DESYREL) 50 MG tablet Take 0.5 tablets by mouth nightly 30 tablet 2 05/01/2020 Active Completed/Discontinued Medications MedicationDrug Class(es)DatesSig (Normalized)Sig (Original)norethindrone 0.35 mg oral tablet (2 sources)Start: 03-10-2023 End: 14-93-7307wunq 1 tablet by mouth in the morningnorethindrone (Micronor) 0.35 MG tablet Indications: General counseling and advice on contraceptive management Take 1 tablet (0.35 mg) by mouth in the morning. 28 tablet 11 03/10/2023 07/15/2024 Discontinued (Therapy completed)omeprazole 20 mg delayed release oral capsule (8 sources)Proton Pump InhibitorStart: 01-15-2025 End: 30-36-3127zyzv 1 capsule by mouth before mealtimeomeprazole (PriLOSEC) [address] capsule Indications: Gastroesophageal Reflux Disease , Heartburn Take 1 capsule (20 mg) by mouth in the morning. Take before meals. Do not crush or chew. 30 capsule 3 01/15/2025 02/26/2025 Discontinued (Formulary change) Problems Active Problems Problem ClassificationProblemDateDocumented DateEpisodic/Chronic Administrative/social admission (4 sources)Dietary counseling and surveillance; Translations: [DIETARY COUNSELING AND SURVEILLANCE]Onset: 09-90-2554PnognhwqStbqhqd disorders (20 sources)Anxiety; Translations: [Anxiety disorder, unspecified]Onset: 903687-84-6639XyjwnkbZqxlgdupui associated with dizziness or vertigo (2 sources)Dizziness; Translations: [Dizziness and giddiness]03-00-9344Yerheaeu Deficiency and other anemia (2 sources)Anemia; Translations: [Anemia, unspecified]47-18-1775YjvfakhpAlrjtnbi mellitus without complication (20 sources)Other abnormal glucose; Translations: [Abnormal glucose level]Onset: 01-16-0652DokycocoFqrpdtge or abnormal glucose tolerance complicating ; childbirth; or the puerperium (12 sources)Gestational diabetes mellitus in , unspecified control; Translations: [Gestational diabetes mellitus complicating ]Onset: 140839-57-8919McjewakdMujygblcx of lipid metabolism (7 sources)Mixed hyperlipidemia; Translations: [Mixed hyperlipidemia]Onset: 600856-45-7102BcwmlguWfdmtabyxv disorders (6 sources)Gastroesophageal reflux disease; Translations: [Gastro-esophageal reflux disease without esophagitis]Onset: hronic Genitourinary symptoms and ill-defined conditions (2 sources)Urinary symptoms ; Translations: [Unspecified symptoms and signs involving the genitourinary system]48-88-5234ZpbyphnhAmoljwztqg during ; abruptio placenta; placenta previa (1 source)Other antepartum hemorrhage, first trimester; Translations: [Other antepartum hemorrhage, first trimester]Onset: 73-65-9384RbqqbhwzXjrfodeckxogq and screening for infectious disease (4 sources)Encounter for screening for infections with a predominantly sexual mode of transmission; Translations: [Encounter for screening for human papillomavirus (HPV)]Onset: 906427-65-1645AmsqylozFjtfwvwwpyage mental health disorders (20 sources)Insomnia disorder related to another mental disorder; Translations: [Insomnia due to other mental disorder]Onset: 05-02-2020 Resolved: 817366-82-8651YusgmstPxtar complications of (4 sources)Maternal care for excessive growth, third trimester, not applicable or unspecified; Translations: [MAT CARE EXCSS FTL GRTH 3RD TRI UNS] Onset: 07-34-2091MbguskstTmpbg complications of (3 sources)Maternal care for excessive growth, unspecified trimester, not applicable or unspecified; Translations: [MAT CARE EXCSS FTL GRTH UNS TRI UNS] Onset: 89-03-6705HbaxcmitOgfgh complications of (2 sources)Gastroesophageal reflux disease in ; Translations: [Diseases of the digestive system complicating , unspecified trimester] 92-70-9829XibmmgmyTzsur female genital disorders (20 sources)Pain in female genitalia on intercourse; Translations: [Unspecified dyspareunia]Onset: 11-30-2020 Resolved: 666951-78-6854WolyqscIepyx female genital disorders (2 sources)Vaginal discharge; Translations: [Other specified noninflammatory disorders of vagina]24-84-6524KiagcdhlYfuuw injuries and conditions due to external causes (4 sources)Encounter for examination and observation following other accident; Translations: [ENC EXAM AND OBSERVATION FOLLOW OTH ACC]Onset: 82-53-4714Axrkrakl Other liver diseases (3 sources)Steatosis of liver; Translations: [Fatty (change of) liver, not elsewhere classified]Onset: 027722-54-9359WvgsdsoKvlhs nutritional; endocrine; and metabolic disorders (1 source)Body mass index 30+ - obesity; Translations: [Body mass index (BMI) 37.0-37.9, adult]Onset: 937784-06-7012YprbbdpHnsgw nutritional; endocrine; and metabolic disorders (3 sources)Obesity; Translations: [Class 2 obesity with body mass index (BMI) of 37.0 to 37.9 in adult]Onset: 960566-83-4872UydikuyEhlie and delivery including normal (20 sources)Encounter for supervision of normal , unspecified, unspecified trimester; Translations: [ state, incidental]Onset: 15-81-3145HoutmbgmZuelx screening for suspected conditions (not mental disorders or infectious disease) (20 sources)Encounter for other screening follow-up; Translations: [Encounter for screening, unspecified]Onset: 87-05-6511WizwduecHtrpy upper respiratory disease (8 sources)Seasonal allergic rhinitis; Translations: [Other seasonal allergic rhinitis]Onset: 183333-24-6202XwclmmeNhzmvnwvlvsumc and other problems of amniotic cavity (4 sources)Subchorionic hematoma; Translations: [Other specified disorders of amniotic fluid and membranes, first trimester, not applicable or unspecified] Onset: 526237-30-8658OprjpxhqKskykyod codes; unclassified (1 source)34 weeks gestation of ; Translations: [34 WEEKS GESTATION OF ]Onset: 75-00-9006TxkitgolDogxfklz codes; unclassified (1 source)33 weeks gestation of ; Translations: [33 WEEKS GESTATION OF ]Onset: 54-70-2757NdwnlabsZccppber codes; unclassified (1 source)Gestation period, 8 weeks; Translations: [8 weeks gestation of ]64-18-9911KqoubtegKemstwyj codes; unclassified (3 sources)H/O: miscarriage; Translations: [Personal history of other complications of , childbirth and the puerperium]53-32-3342Xpmktrnl Residual codes; unclassified (2 sources)Gestation period, 12 weeks; Translations: [12 weeks gestation of ]30-66-1100FjsfzjmhYoscablv codes; unclassified (2 sources)Gestation period, 17 weeks; Translations: [17 weeks gestation of ]28-59-3573HnvkzcgdGdwrbbag codes; unclassified (2 sources)Gestation period, 20 weeks; Translations: [20 weeks gestation of ]23-38-1990TutrnfanWtuuekgf codes; unclassified (20 sources)Gestation period, 23 weeks; Translations: [23 weeks gestation of ]Onset: 338169-74-9319ZzrxoevlDbqxollo codes; unclassified (2 sources)Gestation period, 25 weeks; Translations: [25 weeks gestation of ]90-06-4803JwjokudmFuucpmcs codes; unclassified (2 sources)Gestation period, 28 weeks; Translations: [28 weeks gestation of ]30-88-6384JwlyjuspXkehhaow codes; unclassified (2 sources)Gestation period, 30 weeks; Translations: [30 weeks gestation of ]59-77-8772DvhapywmAozbakya codes; unclassified (2 sources)Gestation period, 32 weeks; Translations: [32 weeks gestation of ]99-67-8059IrlyinxvPldlrtmv codes; unclassified (2 sources)Gestation period, 34 weeks; Translations: [34 weeks gestation of ]14-09-3468DzzomgzcKbargoxqtcrk (1 source)Cancer cervix screening status; Translations: [Screening for cervical cancer]Unclassified (3 sources)Patient encounter status; Translations: [Encounter for annual routine gynecological examination]Unclassified (20 sources)OB RemindersOnset: 516238-22-8209 Past or Other Problems Problem ClassificationProblemDateDocumented DateEpisodic/ChronicCardiac dysrhythmias (2 sources)Palpitations; Translations: [Palpitations]Onset: 19-76-3520Knquvrbh Deficiency and other anemia (3 sources)Iron deficiency anemia; Translations: [Iron deficiency anemia, unspecified]Onset: 077480-24-9513DlmmtfdsGdcdouisnd and other anemia (1 source)Iron deficiency anemia, unspecified; Translations: [Iron deficiency anemia, unspecified]Onset: 97-71-8946YyxrmgoxRngspzy and fatigue (20 sources)Fatigue; Translations: [Other fatigue]Onset: EpisodicMenstrual disorders (20 sources)Amenorrhea; Translations: [Amenorrhea, unspecified]Onset: 06-23-2022 Resolved: 80-58-4716GdjlsbzKkmex disorders of stomach and duodenum (20 sources)Indigestion; Translations: [Functional dyspepsia]Onset: 01-13-2023 13-16-0418EiktoefbMzjvo female genital disorders (4 sources)Other specified noninflammatory disorders of vagina; Translations: [OTH SPEC NONINFLAMMATORY D/O VAGINA]Onset: 47-96-0749TzyonbxnJvvmv gastrointestinal disorders (20 sources)Heartburn; Translations: [Heartburn]Onset: EpisodicOther liver diseases (4 sources)Elevated liver enzymes level; Translations: [Abnormal levels of other serum enzymes]Onset: 964105-24-2289SapmpcmwJaktp liver diseases (1 source)Abnormal levels of other serum enzymes; Translations: [Abnormal levels of other serum enzymes]Onset: 41-31-5060TmtocjqeQginc skin disorders (3 sources)Acne; Translations: [Acne, unspecified]Onset: 10-17-2023 Resolved: 861865-75-6439QyisntbuJfxed upper respiratory infections (2 sources)Sore throat symptom; Translations: [Acute pharyngitis, unspecified] Onset: 09-10-2024 Resolved: 114726-96-8574PuygookgDcithuor codes; unclassified (1 source)Family history of other diseases of the digestive system; Translations: [Family history of other diseases of the digestive system]Onset: 90-80-9960WqacislcStypfmj tract infections (20 sources)Recurrent urinary tract infection; Translations: [Urinary tract infection, site not specified]Onset: 11-30-2020 Resolved: 83-74-1091Vuyssrie Results Test NameValueInterpretationReference RangeFacilityUS OB BPP W NON-STRESS on 91-98-4701Y[address] [place] [address] Ultrasound Report Signed Patient: VINNY DOWNEY MR#: [id number] : 2000 Acct:[id number] Age/Sex: 24 / F ADM Date: 05/21/25 Loc: US Attending Dr: Mukul Foy D.O. Ordering Physician: Mukul Foy D.O. Date of Service: 05/21/25 Procedure(s): US OB BPP w non-stress Accession Number(s): [id number] cc: Mukul Foy D.O.; Ynes Rodriguez NP [place] [address] Patient Name: VINNY DOWNEY MRN: [id number] date: 2000 Sex: F Assigned Patient Location: [facility] Current Patient Location: Accession/Order Number: [id number] Exam Date: 05/21/2025 16:12 Report Date: 05/21/2025 19:56 At the request of: MUKUL FOY DO Procedure: US OB BPP w non-stress Ultrasound biophysical profile INDICATION: Gestational diabetes COMPARISON: 05/07/2025 FINDINGS/IMPRESSION:: Fetus cephalic position. 8/8 score biophysical profile. heart rate 139 beats per minutes. JAMAL 19.1 cm . Impression dictated by: Chevy Moreland M.D. 05/21/2025 7:56 PM Dictation Location: [place] [address] Electronically authenticated by: [id number] Y Date: 05/21/2025 19:56 Dictated By: Chevy Moreland M.D. Signed By: 05/21/251958 DD/ 55 TD/TT: Supervisor Receiving And Processing:TBHRadiology, Radiologist, MD - 05/21/2025 [place] [address] Ultrasound Report Signed Patient: VINNY DOWNEY MR#: [id number] : 2000 Acct:[id number] Age/Sex: 24 / F ADM Date: 05/21/25 Loc: US Attending Dr: Mukul Foy D.O. Ordering Physician: Mukul Foy D.O. Date of Service: 05/21/25 Procedure(s): US OB BPP w non-stress Accession Number(s): [id number] cc: Mukul Foy D.O.; Ynes Rodriguez NP [place] [address] Patient Name: VINNY DOWNEY MRN: [id number] date: 2000 Sex: F Assigned Patient Location: [facility] Current Patient Location: Accession/Order Number: [id number] Exam Date: 05/21/2025 16:12 Report Date: 05/21/2025 19:56 At the request of: MUKUL FOY DO Procedure: US OB BPP w non-stress Ultrasound biophysical profile INDICATION: Gestational diabetes COMPARISON: 05/07/2025 FINDINGS/IMPRESSION:: Fetus cephalic position. 8/8 score biophysical profile. heart rate 139 beats per minutes. JAMAL 19.1 cm . Impression dictated by: Chevy Moreland M.D. 05/21/2025 7:56 PM Dictation Location: [place] [address] Electronically authenticated by: [id number] Y Date: 05/21/2025 19:56 Dictated By: Chevy Moreland M.D. Signed By: 05/21/251958 DD/ 55 TD/TT: Supervisor Receiving And Processing: DIANE HealthcareRadiology Study observation (narrative)NOMS HealthcareUS OB BPP W NON-STRESSOrdered By: Radiologist Radiology on 03-76-6734[facility] Work Phone: Urinalysis macro (dipstick) panel (U)on 05-14-2025 Bilirubin, UANegativeNegative - 4(70) +++ mg/dLNOMS HealthcareBlood, UANegative Negative - 50 Yunior/mcLNOMS HealthcareClarity, UAClearNOMS HealthcareColor, UA YellowNOMS HealthcareGlucose, UANegativeNegative - 2000(110) ++++ mg/dLNOMS HealthcareInterpretation and review of laboratory resultsNormalNONJ Healthcare Ketones, UANegativeNegative - 160(16) ++++ mg/dLNOMS HealthcareLeukocytes, UA NegativeNegative - 500+++ Trip/mcLNONJ HealthcareNitrite, UANegativeNegative - PositiveNOMS HealthcarepH, UA6.55 - 9NOMS HealthcareProtein, UANegativeNegative - 1999(20) ++++ mg/dLNOMS HealthcareSpec Grav, UA1.0101 - 1.03N[facility] Healthcare Urobilinogen, UA2.00.2 - 12 mg/dLNOMS HealthcareNOMS HealthcareUS OB BPP W NON-STRESSon 11-48-[place], [place] [address] Ultrasound Report Signed Patient: VINNY DOWNEY MR#: [id number] : 2000 Acct:[id number] Age/Sex: 24 / F ADM Date: 04/30/25 Loc: US Attending Dr: Mukul Foy D.O. Ordering Physician: Mukul Foy D.O. Date of Service: 04/30/25 Procedure(s): US OB BPP w non-stress Accession Number(s): [id number] cc: Mukul Foy D.O.; Ynes Rodriguez [place] [address] Patient Name: VINNY DOWNEY MRN: [facility]:[id number] date: 2000 Sex: F Assigned Patient Location: [facility] Current Patient Location: Accession/Order Number: [id number] Exam Date: 04/30/2025 15:57 Report Date: 04/30/2025 22:59 At the request of: MUKUL FOY DO Procedure: US OB BPP w non-stress Ultrasound biophysical profile INDICATION: Gestational diabetes COMPARISON: 04/05/2025 FINDINGS/IMPRESSION:: Fetus cephalic position. 8/8 score biophysical profile. heart rate 145 beats per minutes. JAMAL 12.7 cm. Impression dictated by: Chevy Moreland M.D. 04/30/2025 10:59 PM Dictation Location: [id number] Electronically authenticated by: [id number] Y Date: 04/30/2025 22:59 Dictated By: Chevy Moreland M.D. Signed By: 04/30/252301 DD/ 58 TD/TT: Supervisor Receiving And Processing:MILYHRadiology, Radiologist, - 04/30/2025 [place] [address] Ultrasound Report Signed Patient: VINNY DOWNEY MR#: [id number] : 2000 Acct:[id number] Age/Sex: 24 / F ADM Date: 04/30/25 Loc: US Attending Dr: Mukul Foy D.O. Ordering Physician: Mukul Foy D.O. Date of Service: 04/30/25 Procedure(s): US OB BPP w non-stress Accession Number(s): [id number] cc: Mukul Foy D.O.; [facility] [place] [address] Patient Name: VINNY DOWNEY MRN: [facility]:[id number] date: 2000 Sex: F Assigned Patient Location: [facility] Current Patient Location: Accession/Order Number: [id number] Exam Date: 04/30/2025 15:57 Report Date: 04/30/2025 22:59 At the request of: MUKUL FOY DO Procedure: US OB BPP w non-stress Ultrasound biophysical profile INDICATION: Gestational diabetes COMPARISON: 04/05/2025 FINDINGS/IMPRESSION:: Fetus cephalic position. 02/28 score biophysical profile. heart rate 145 beats per minutes. JAMAL 12.7 cm. Impression dictated by: Chevy Moreland M.D. 04/30/2025 10:59 PM Dictation Location: [employer]29 Electronically authenticated by: [id number] Y Date: 04/30/2025 22:59 Dictated By: Chevy Moreland M.D. Signed By: 04/30/25 7542 DD/ 975 TD/TT: Supervisor Receiving And Processing: DIANE HealthcareRadiology Study observation (narrative)DIANE HealthcareUS OB BPP W NON-STRESSOrdered By: Radiologist Radiology on 75-89-7230FNSG Healthcare Work Phone: Urinalysis macro (dipstick) panel [...] mg/dLNOMS HealthcareNOMS HealthcareUrinalysis macro (dipstick) panel (U)on 97-59-5277Jjmxbtzwr, UANegativeNegative - 4(70) +++ mg/dL NOMS HealthcareBlood, UANegativeNegative - 50 Yunior/mcLNOMS HealthcareClarity, UA ClearNOMS HealthcareColor, UAYellowNOMS HealthcareGlucose, UANegativeNegative - 2000(110) ++++ mg/dLNOMS HealthcareInterpretation and review of laboratory resultsNormalNOMS HealthcareKetones, UANegativeNegative - 160(16) ++++ mg/dLNOMS HealthcareLeukocytes, UANegativeNegative - 500+++ Trip/mcLNOMS HealthcareNitrite, UANegativeNegative - PositiveNOMS HealthcarepH, UA6.55 - 9NOMS Healthcare Protein, UANegativeNegative - 1999(20) ++++ mg/dLNONJ HealthcareSpec Grav, UA 1.0051 - 1.03NONJ HealthcareUrobilinogen, UA0.20.2 - 12 mg/dLNOSt. Joseph Medical Center HealthcareALL CBC WITH AUTO DIFFon 37-32-0100OGQZFOUXY ABSOLUTE ZSZX6DIFX HealthcareBasophils/100 WBC (Bld)0.2 %0.2 - 2.0 %NOMMercy Hospital St. LouisEosinophils/100 WBC (Bld)1.1 %0.9 - 7.0 %[facility] CenterErythrocyte distribution width (RBC) [Ratio]12.8 %11.0 - 15.0 %NOMMercy Hospital St. LouisHematocrit (Bld) [Volume fraction]30.7 %Low36.0 - 48.0 %[facility] CenterHemoglobin (Bld) [Mass/Vol]10.3 g/dLLow12.0 - 16.0 g/dLMetropolitan Saint Louis Psychiatric CenterIMMATURE GRANULOCYTES ABS AUTO0.04HighMetropolitan Saint [facility] Psychiatric Center Immature granulocytes/100 WBC (Bld)0.4 %0.0 - 0.5 %[facility] CenterInterpretation and review of laboratory resultsAbnormalNOPhelps HealthLYMPHOCYTES ABSOLUTE AUTO1.9NOMS [facility]ermont County HospitalLymphocytes/100 WBC (Bld)17.1 %Low20.5 - 60.0 %[facility] InstituteH (RBC) [Entitic mass]29.7 pg26.7 - 34.0 pgFreeman Cancer InstituteHC (RBC) [Mass/Vol]33.6 g/dL29.9 - 35.2 g/dLFreeman Cancer InstituteV (RBC) [Entitic vol]88.5 fL 81.0 - 99.0 fLMetropolitan Saint Louis Psychiatric CenterMONOCYTES ABSOLUTE AUTO0.7NOMS [facility] Monocytes/100 WBC (Bld)6.5 %1.7 - 12.0 %[facility] CenterNEUTROPHILS ABSOLUTE AUTO 8.2HighNOPhelps HealthNeutrophils/100 WBC (Bld)74.7 %43.0 - 75.0 %[facility] CenterPlatelet mean volume (Bld) [Entitic vol]8.7 fLLow9.5 - 13.5 fLMetropolitan Saint Louis Psychiatric CenterTB EO #0.1NOMS [facility]ermont County HospitalTBH PME094WSSL HealthcareTB RBC3.47LowNOMS HealthcareTBH IWB56JYYQ HealthcareCLINISYNCNOMS HealthcareUS OB GROWTHon 14-33-4641Teg [address] [address] Ultrasound Report Signed Patient: VINNY DOWNEY MR#: [id number] : 2000 Acct:[id number] Age/Sex: 24 / F ADM Date: 04/05/25 Loc: US Attending Dr: Regina Barton Ordering Physician: Regina Barton Date of Service: 04/05/25 Procedure(s): US OB growth Accession Number(s): [id number] cc: Regina Barton; Physician,Non-Staff Khadar The [address] [address] Patient Name: VINNY DOWNEY MRN: [id number] date: 2000 Sex: F Assigned Patient Location: US Current Patient Location: LAB Accession/Order Number: [id number] Exam Date: 04/05/2025 10:00 Report Date: 04/05/2025 [...] Peraza M.D. 04/05/2025 12:08 PM Dictation Location: [facility] CENTERHydrobee Electronically authenticated by: [id number] Y Date: 04/05/2025 12:08 Dictated By: Daryn Peraza D.O. Signed By: 04/05/25 1211 DD/ 1208 TD/TT: Supervisor Receiving And Processing:JAMILAHadiologvicki, Radiologist, - 04/05/[address] [place] [address] Ultrasound Report Signed Patient: VINNY DOWNEY MR#: [id number] : 2000 Acct:[id number] Age/Sex: 24 / F ADM Date: 04/05/25 Loc: US Attending Dr: Regina Barton Ordering Physician: Regina Barton Date of Service: 04/05/25 Procedure(s): US OB growth Accession Number(s): [id number] cc: Regina Barton; Physician,Non-Staff [address] [address] Patient Name: VINNY DOWNEY MRN: [id number] date: 2000 Sex: F Assigned Patient Location: US Current Patient Location: LAB Accession/Order Number: [id number] Exam Date: 04/05/2025 10:00 Report Date: 04/05/2025 [...] Peraza M.D. 04/05/2025 12:08 PM Dictation Location: [employer] Electronically authenticated by: [id number] Y Date: 04/05/2025 12:08 Dictated By: Daryn Peraza D.O. Signed By: 04/05/25 1211 DD/ 1208 TD/TT: Supervisor Receiving And Processing: DIANE HealthcareRadiology Study observation (narrative)DIANE Armas OB GROWTHOrdered By: Radiologist Radiology on 76-26-1168DPQN Healthcare Work Phone: Urinalysis macro (dipstick) panel (U)on 04-03-2025 Bilirubin, UANegativeNegative - 4(70) +++ mg/dLNOMS HealthcareBlood, UANegative Negative - 50 Yunior/mcLNOMS HealthcareClarity, UAClearNOMS HealthcareColor, UA YellowNOMS HealthcareGlucose, UANegativeNegative - 1999(110) ++++ mg/dLNOMS HealthcareInterpretation and review of laboratory resultsAbnormalNONJ Healthcare Ketones, UANegativeNegative - 160(16) ++++ mg/dLNOMS HealthcareLeukocytes, UA PositiveNegative - 500+++ Trip/mcLNOMS HealthcareNitrite, UANegativeNegative - PositiveNOMS HealthcarepH, UA6.55 - 9NOMS HealthcareProtein, UANegativeNegative - 1999(20) ++++ mg/dLNOMS HealthcareSpec Grav, UA1.011 - 1.03NOMS Healthcare Urobilinogen, UA1.00.2 - 12 mg/dLNOMS HealthcareNOMS HealthcareUrinalysis macro (dipstick) panel (U)on 03-89-0888Mtqycwxym, UANegativeNegative - 4(70) +++ mg/dL NOMS HealthcareBlood, UANegativeNegative - 50 Yunior/mcLNOMS HealthcareClarity, UA ClearNOMS HealthcareColor, UAYellowNOMS HealthcareGlucose, UANegativeNegative - 1999(110) ++++ mg/dLNOMS HealthcareInterpretation and review of laboratory resultsNormalNONJ HealthcareKetones, UANegativeNegative - 160(16) ++++ mg/dLNOMS HealthcareLeukocytes, UANegativeNegative - 500+++ Trip/mcLNOMS HealthcareNitrite, UANegativeNegative - PositiveNOMS HealthcarepH, UA6.55 - 9NOMS Healthcare Protein, UANegativeNegative - 2000(20) ++++ mg/dLNOMS HealthcareSpec Grav, UA 1.011 - 1.03NOMS HealthcareUrobilinogen, UA1.00.2 - 12 mg/dLNOMS HealthcareNOMS HealthcareUrinalysis macro (dipstick) panel (U)on 79-52-9163Ailsjgxsp, UA NegativeNegative - 4(70) +++ mg/dLNOMS HealthcareBlood, UANegativeNegative - 50 Yunior/mcLNOMS HealthcareClarity, UAClearNOMS HealthcareColor, UAYellowNONJ HealthcareGlucose, UANegativeNegative - 2000(110) ++++ mg/dLNONJ Healthcare Interpretation and review of laboratory resultsNormalNONJ HealthcareKetones, UA NegativeNegative - 160(16) ++++ mg/dLMetropolitan Saint Louis Psychiatric CenterLeukocytes, UANegative Negative - 500+++ Trip/mcLNONJ HealthcareNitrite, UANegativeNegative - Positive NOMS HealthcarepH, UA65 - 9NONJ HealthcareProtein, UANegativeNegative - 2000(20) ++++ mg/dLNONJ HealthcareSpec Grav, UA1.011 - 1.03NONJ HealthcareUrobilinogen, UA0.20.2 - 12 mg/dLNOPhelps HealthNONJ HealthcareUS OB 14+ WEEKS ANATOMY SCANon 23-05-9390IX OB 14+ WEEKS ANATOMY SCANFINDINGS: A single, [...] Delivery: 06/23/25 Gestational Age as of 01/15/2025: 85q1fXljiynpprv macro (dipstick) panel (U)on 56-12-7022Bqrgqhorj, UANegativeNegative - 4(70) +++ mg/dLNOMS HealthcareBlood, UANegativeNegative - 50 Yunior/mcLNOMS HealthcareClarity, UAClearNOMS Healthcare Color, UAYellowNOMS HealthcareGlucose, UANegativeNegative - 2000(110) ++++ mg/dL NOMS HealthcareInterpretation and review of laboratory resultsNormalNOMS HealthcareKetones, UANegativeNegative - 160(16) ++++ mg/dLNONJ Healthcare Leukocytes, UANegativeNegative - 500+++ Trip/mcLNOMS HealthcareNitrite, UA NegativeNegative - PositiveNOMS HealthcarepH, UA6.55 - 9NOMS HealthcareProtein, UANegativeNegative - 2000(20) ++++ mg/dLNOMS HealthcareSpec Grav, UA1.0251 - 1.03NOMS HealthcareUrobilinogen, UA1.00.2 - 12 mg/dLNONJ HealthcareNOMS HealthcareRECURRENT VAGINITIS (HTRX)on 04-94-3768HLYGXULME HEAXJRS8YGVV HealthcareATOPOBIUM VAGINAENot detectedNOMS HealthcareBVAB 2,3 (BACTERIAL VAGINOSIS ASSOCIATED BACTERIA 2, 3); MOBILUNCUS VQI9VZWY HealthcareBVAB 2,3 (BACTERIAL VAGINOSIS ASSOCIATED BACTERIA 2, 3); MOBILUNCUS SPPNot detectedNOMS HealthcareCANDIDA ALBICANS, PARAPSILOSIS, AIJEPKECKT6KBGO HealthcareCANDIDA ALBICANS, PARAPSILOSIS, TROPICALISNot detectedNOMS HealthcareCANDIDA GLABRATA0 NOMS HealthcareCANDIDA GLABRATANot detectedNOMS HealthcareCANDIDA HITVJI9UOMX HealthcareCANDIDA KRUSEINot detectedNOMS HealthcareCHLAMYDIA VNTEPLHLHMX6FYZY HealthcareCHLAMYDIA TRACHOMATISNot detectedNOMS HealthcareGARDNERELLA VAGINALIS0 NOMS HealthcareGARDNERELLA VAGINALISNot detectedNOMS HealthcareMEGASPHAERA (TYPES 1, 2)0NOMS HealthcareMEGASPHAERA (TYPES 1, 2)Not detectedNOMS Healthcare MYCOPLASMA EIGYQBBXZN7KWUS HealthcareMYCOPLASMA GENITALIUMNot detectedNOMS HealthcareNEISSERIA EFBSMIXPIHV2YMXN HealthcareNEISSERIA GONORRHOEAENot detected NOMS HealthcareTRICHOMONAS JBLDHRNZT3FKTC HealthcareTRICHOMONAS VAGINALISNot detectedNOMS HealthcareNOMS HealthcareCBCon 63-64-4608Panmdvozrap distribution width (RBC) [Ratio]12.6 %11.8 - 14.4 %[facility] HospitalHematocrit (Bld) [Volume fraction]35.4 %Low36.3 - 47.1 %[facility] HospitalHemoglobin (Bld) [Mass/Vol]11.7 g/dLLow11.9 - 15.1 g/dLBon [facility]tering Health TroyInterpretation and review of laboratory resultsAbnormalBon Brown Memorial HospitalH (RBC) [Entitic mass]30 pg25.2 - 33.5 pgBallad HealthHC (RBC) [Mass/Vol]33.1 g/dL 28.4 - 34.8 g/dLBon Brown Memorial HospitalV (RBC) [Entitic vol]90.8 fL82.6 - 102.9 fLSentara Virginia Beach General HospitalNucleated RBC/100 WBC (Bld) [Ratio]0 %0.0 per 100 WBCSentara Virginia Beach General HospitalPlatelet mean volume (Bld) [Entitic vol]8.7 fL8.1 - 13.5 fLSentara Virginia Beach General HospitalPlatelets (Bld) [#/Vol]316 10*3/uLBon [facility]tering Health TroyRBC (Bld) [#/Vol]3.9 10*6/uLLow3.95 - 5.11 m/[facility] HospitalWBC other (Bld) [#/Vol]10.2Bon [facility] HospitalErythrocyte distribution width (RBC) [Ratio]12.6 %Tlheng19.8-14.4[facility] Southeast OhioComment on above:Performed By: #### GLUSC, CBC #### [facility] [address] [place] [address] [place] [address] Television Installer Helper: Yelena Greco MDHematocrit (Bld) [Volume fraction]35.4 %Low 36.3-47.1MercConnecticut Children's Medical CenterComment on above:Performed By: #### GLUSC, CBC #### [facility] [address] [place] [address] Television Installer Helper: Yelena Greco MDHemoglobin (Bld) [Mass/Vol]11.7 g/dLLow11.9-15.1 [facility] Southeast OhioComment on above:Performed By: #### GLUSILVINO, CBC #### [address] [place], [place] [address] Television Installer Helper: YULY ArandaCH (RBC) [Entitic mass]30.0 ylKbnilb68.2-33.5 [facility] HospitalComment on above:Performed By: #### GLUSILVINO, CBC #### [address] [place] [address] Television Installer Helper: TY ArandaC (RBC) [Mass/Vol]33.1 g/rRPnriqv04.4-34.8[facility] OhioComment on above:Performed By: #### YESSICA, CBC #### [address] [place], [facility]83 Television Installer Helper: YULY ArandaCV (RBC) [Entitic vol]90.8 xKQkruoz22.6-102.9 [facility] OhioComment on above:Performed By: #### GLUSILVINO, CBC #### [address] [place], [place] [id number] Television Installer Helper: Yelena Greco MDNRBC Automated0.0 per 100 WBCNormal0.0[facility] - Southeast OhioComment on above:Performed By: #### GLUSC, CBC #### [address] [place] [address] Television Installer Helper: Sobeida Aranda mean volume (Bld) [Entitic vol]8.7 fL Normal8.1-13.5[facility] OhioComment on above:Performed By: #### GLUSILVINO, CBC #### [address] [place] [address] Television Installer Helper: Richie ArandaInova Alexandria Hospital) [#/Vol]316 10*3/jVSmlftt198-222 [facility] Southeast OhioComment on above:Performed By: #### GLUSC, CBC #### [address] [place], [place] [address] Television Installer Helper: BILL Aranda ([facility]) [#/Vol]3.90 10*6/uLLow3.95-5.11[facility] OhioComment on above:Performed By: #### GLUSC, CBC #### [address] [place], [place] [address] Television Installer Helper: LANEY Aranda ([facility]) [#/Vol]10.2 10*3/uLNormal3.5-11.3MMercy Health Urbana HospitalComment on above:Performed By: #### GLUSILVINO, CBC #### [address] [place], [place] [address] Television Installer Helper: Yelena Greco MDGlucose Challenge Gestationalon 16-75-2329MXI ADMN GlucolaBon [facility]tering Health TroyGlucose 1 Hr post 50 g glucose PO [Mass/Vol]184 mg/kJDjmo16 - 135 mg/dLBRussell County Medical CenterInterpretation and review of laboratory resultsAbnormalBon [facility] Health TroyBon [facility] Troy Glucose Toya Scr 50gon 96-96-4091Sionbhw [Mass/Vol]184 mg/xSLdsy68-027ElkkjSelect Medical Specialty Hospital - Southeast OhioComment on above:Performed By: #### GLUSC, CBC #### [address] [place], [place] [id number] Television Installer Helper: Yelena Greco MDGlu Administered viaGlucolaNormSelect Medical Specialty Hospital - Cleveland-FairhillComment on above:Performed By: #### GLUSC, CBC #### [address] [place] [address] Television Installer Helper: Yelena Greco MDUS OB LESS THAN 14 WEEKS SINGLE OR FIRST GESTATION on 23-36-5428EMUAYDJPRCK: FIRST TRIMESTER OBSTETRIC ULTRASOUND 12/20/2024 TECHNIQUE: 1. [...] by: Noah Rivero MD 12/23/24 Final result [facility] CenterRadiology Study observation (narrative)[facility] CenterUS OB LESS THAN 14 WEEKS SINGLE OR FIRST GESTATIONOrdered By: Radiologist Radiology on 39-38-8420FCLR [employer] Work Phone: US OB LESS THAN 14 WEEKS SINGLE OR FIRST GESTATION W DOPPLERon 59-34-1267DW OB LESS THAN 14 WEEKS SINGLE OR [...] by: Noah Rivero MD 12/23/24 Final resultNormalMercy Hazleton HospitalUrinalysis macro (dipstick) panel (U)on 51-43-5110Hxsxmrygy, UANegativeNegative - 4(70) +++ mg/dLNOMS HealthcareBlood, UAPositiveNegative - 50 Yunior/mcLNOMS HealthcareClarity, UAClearNOMS Healthcare Color, UAYellowNOMS HealthcareGlucose, UANegativeNegative - 2000(110) ++++ mg/dL NOMS HealthcareInterpretation and review of laboratory resultsAbnormalNONJ HealthcareKetones, UANegativeNegative - 160(16) ++++ mg/dLNOMS Healthcare Leukocytes, UANegativeNegative - 500+++ Trip/mcLNONJ HealthcareNitrite, UA NegativeNegative - PositiveNOMS HealthcarepH, UA75 - 9NOMS HealthcareProtein, UA NegativeNegative - 2000(20) ++++ mg/dLNOMS HealthcareSpec Grav, UA1.011 - 1.03 NOMS HealthcareUrobilinogen, UA1.00.2 - 12 mg/dLNOMS HealthcareNONJ Healthcare HCG ( test) Ql (U)on 54-59-8539Hknfpfcieffoix and review of laboratory resultsAbnormalSALT LAKE [facility] HealthcarePreg Test, UrPositiveNegativeNOMS HealthcareNONJ HealthcareUS OB TRANSVAGINALon 08-54-5156[place] OB TRANSVAGINALEXAM: US OB TRANSVAGINAL HISTORY: Dating. [...] II, MD, PHD at 15-Nov-2024 09:44:32 AM [facility] TeleradiologyNormalNot AvailableComment on above:Order Comment: US OB TRANSVAGINAL No LMP recorded.Urinalysis macro (dipstick) panel (U)on 67-57-8541Uavldoffi, UA NegativeNegative - 4(70) +++ mg/dLNOMS HealthcareBlood, UANegativeNegative - 50 Yunior/mcLNONJ HealthcareClarity, UAClearNOMS HealthcareColor, UAYellowNOMS HealthcareGlucose, UANegativeNegative - 1999(110) ++++ mg/dLNOMS Healthcare Interpretation and review of laboratory resultsNormalNOMS HealthcareKetones, UA NegativeNegative - 160(16) ++++ mg/dLNOMS HealthcareLeukocytes, UANegative Negative - 500+++ Trip/mcLNOMS HealthcareNitrite, UANegativeNegative - Positive NOMS HealthcarepH, UA6.55 - 9NOMS HealthcareProtein, UANegativeNegative - 1999(20) ++++ mg/dLNOMS HealthcareSpec Grav, UA1.0051 - 1.03NOMS Healthcare Urobilinogen, UA0.20.2 - 12 mg/dLNOMS HealthcareNOMS HealthcareIGP,APTIMA HPV,AGE GDLNon 25-39-6229LZA GDLN ACOG TESTINGNote.NOMS HealthcareComment on above:TESTS RESULT FLAG UNITS REF RANGE LAB Clinician Provided Cytology Information Source.............Cervix;Endocervix No. of containers..01 ThinPrep Vial Age Mack DALE Addie... FLAG LEGEND: L-Low Normal,H-High Normal,LL-Alert Low,HH-Alert High <-Panic Low,>-Panic High,A-Abnormal,AA-Critical Abnormal Performed at: 01 =[facility] [address] [place] [address] Anastasiya Moses MD, IGP, RFX APTIMA HPV ASCUNote.NOMS HealthcareComment on above:TESTS RESULT FLAG UNITS REF RANGE LAB DIAGNOSIS: 02 NEGATIVE FOR INTRAEPITHELIAL LESION OR MALIGNANCY. Specimen adequacy: 02 Satisfactory for evaluation. Endocervical and/or squamous metaplastic cells (endocervical component) are present. Performed by: Oswald Galaviz, Nurse Prn ([facility]) . 02 Note: Note 02 The [...] Low,>-Panic High,A-Abnormal,AA-Critical Abnormal Performed at: [address] [facility] [address] [address] Anastasiya Moses MD, Performed at: =G - [facility] [address] [id number] Television Installer Helper: Anastasiya Moses MD, Phone: [phone] Performed at: - [facility] [id number] Television Installer Helper: Anastasiya Moses MD, Phone: [phone] BRUSH-SPATULA CERVIX ENDOCERVIX CLINISYNCNOMS Clermont County HospitalComp Metabolic Profon 46-55-8258Pxrrrph [Mass/Vol]4.6 g/dLNormal3.5-5.2[facility] Institute Of LivingComment on above:Performed By: #### CP #### [address] [place] [address] Television Installer Helper: Yelena Greco MDAlbumin/Glob Ratio1.6Ubuvrf6.0-2.5[facility] Institute Of LivingComment on above:Performed By: #### CP #### [address] [place], [place] [address] Television Installer Helper: Giselle Aranda Phos71 U/BYuncgf80-538ZahejSelect Medical Specialty Hospital - Southeast OhioComment on above:Performed By: #### CP #### [address] [place], [place] [address] Television Installer Helper: Yelena Greco MDALT [Catalytic activity/Vol]41 U/SCdxs98-31Jmpjh [facility]iffin HospitalComment on above:Performed By: #### CP #### [address] [place] [address] Television Installer Helper: Yelena Greco MDAnion gap [Moles/Vol]10 mmol/LNormal9-16[facility] - [facility] OhioComment on above:Performed By: #### CP #### [address] [place] [address] Television Installer Helper: Yelena Greco MDAST [Catalytic activity/Vol]34 U/ZGaosuf48-65Ndbdu [facility]iffin HospitalComment on above:Performed By: #### CP #### [address] [place] [address] Television Installer Helper: Yelena Greco MDBilirubin [Mass/Vol]0.4 mg/dLNormal0.00-1.20[facility] - Southeast OhioComment on above:Performed By: #### CP #### [address] [place] [address] Television Installer Helper: Yelena Greco MDBUN/CRE Gdsum84Osnc7-07Flglk [facility] Comment on above:Performed By: #### CP #### [address] [place], [place] [address] Television Installer Helper: Yelena Greco MDCalcium [Mass/Vol]9.4 mg/dLNormal8.6-10.4[facility] HospitalComment on above:Performed By: #### CP #### [address] [place] [address] Television Installer Helper: NATALIO Arandahloride [Moles/Vol]103 mmol/JJnnnxt30-186JxudvSelect Medical Specialty Hospital - Southeast OhioComment on above:Performed By: #### CP #### [address] [place] [address] Television Installer Helper: Yelena Greco MDCO2 [Moles/Vol]25 mmol/PJvrvwe32-29XfqvnSelect Medical Specialty Hospital - Southeast OhioComment on above:Performed By: #### CP #### [address] [place], [facility]83 Television Installer Helper: NATALIO Arandareatinine [Mass/Vol]0.6 mg/dLNormal0.50-0.90[facility] - Southeast OhioComment on above:Performed By: #### CP #### [address] [place], [facility]83 Television Installer Helper: Yelena Greco MDGFR/1.73 sq M.predicted among non-blacks MDRD (S/P/Bld) [Vol rate/Area]mL/min/{1.73_m2}Normal>60[facility] - Southeast OhioComment on above:Result Comment: These results are not [...] renal tubular secretion.Performed By: #### CP #### [address] [place] [address] Television Installer Helper: Yelena Greco MDGlucose [Mass/Vol]83 mg/aLUrqnss55-22GgpbvMercy Health Urbana HospitalComment on above:Performed By: #### CP #### [address] [place], [place] [address] Television Installer Helper: ROLANDO Arandaotassium [Moles/Vol]4.6 mmol/LNormal3.7-5.3Mer[facility]leton HospitalComment on above:Performed By: #### CP #### [address] [place], [place] [address]83 Television Installer Helper: Yelena Greco MDProtein [Mass/Vol]7.8 g/dLNormal6.6-8.7MerOhioHealth Grady Memorial Hospital HospitalComment on above:Performed By: #### CP #### [address] [place], [place] [address] Television Installer Helper: Yelena Greco MDSodium [Moles/Vol]138 mmol/QVsqpdq598-707Rnjab [facility]in HospitalComment on above:Performed By: #### CP #### [address] [place], [place] [address] Television Installer Helper: Yelena Greco MDUrea nitrogen [Mass/Vol]13 mg/dLNormal6-20[facility] - Southeast OhioComment on above:Performed By: #### CP #### [address] [place], [place] [address] Television Installer Helper: NATALIO Arandaomprehensive Metabolic Panelon 96-12-7591Psaeyfk [Mass/Vol]4.6 g/dL3.5 - 5.2 g/dLBon [facility] TroyAlbumin/Globulin [Mass ratio]1.5 {ratio}1.0 - 2.5Bon [facility] HealthALP [Catalytic activity/Vol]71 U/L35 - 104 U/LBon [facility] HealthALT [Catalytic activity/Vol]41 U/LHigh10 - 35 U/LBon [facility] TroyAnion gap [Moles/Vol]10 mmol/L9 - 16 mmol/LBon [facility] HealthAST [Catalytic activity/Vol]34 U/L10 - 35 U/LBon [facility] TroyBilirubin [Mass/Vol]0.4 mg/dL0.00 - 1.20 mg/dLBon [facility] TroyCalcium [Mass/Vol]9.4 mg/dL8.6 - 10.4 mg/dLBon [facility] Chloride [Moles/Vol]103 mmol/L98 - 107 mmol/LBon [facility] TroyCO2 [Moles/Vol]25 mmol/L20 - 31 mmol/LBon [facility] TroyCreatinine [Mass/Vol] 0.6 mg/dL0.50 - 0.90 mg/dLBon [facility] TroyEst, Glom Filt Rate- PINFBon Kettering Health TroyComment on above: These results are not intended [...] secretion. Glucose [Mass/Vol]83 mg/dL74 - 99 mg/dLBon [facility] TroyInterpretation and review of laboratory resultsAbnormalSentara Virginia Beach General HospitalPotassium [Moles/Vol]4.6 mmol/L3.7 - 5.3 mmol/LBon [facility] TroyProtein [Mass/Vol] 7.8 g/dL6.6 - 8.7 g/dLBon [facility] TroySodium [Moles/Vol]138 mmol/L136 - 145 mmol/LBon [facility] TroyUrea nitrogen [Mass/Vol]13 mg/dL6 - 20 mg/dL [facility] General HospitalUrea nitrogen/Creatinine [Mass ratio]22 mg/mgHigh9 - 20 [facility] HospitalLipid Panelon 05-20-2024 Cholesterol [Mass/Vol]152 mg/dL0 - 199 mg/dLBon [facility] TroyComment on above: Cholesterol Guidelines: <200 Desirable 200-240 Borderline >240 Undesirable Cholesterol in HDL [Mass/Vol]33 mg/dLLow40 - PINF mg/dLBon [facility] Comment on above: HDL Guidelines: <40 Undesirable 40-59 Borderline >59 Desirable Cholesterol in LDL [Mass/Vol]88 mg/dL0 - 100 mg/dLBon [facility] [employer] Comment on above: LDL Guidelines: <100 Desirable 100-129 Near to/above Desirable 130-159 Borderline >159 Undesirable Direct (measured) LDL and calculated LDL are not interchangeable tests. Cholesterol in VLDL [Mass/Vol]31 mg/dLBon [facility] [employer] Cholesterol.total/Cholesterol in HDL [Mass ratio]5.0 {ratio}[facility] HospitalInterpretation and review of laboratory resultsAbnormalBon [facility] BiorasisTriglyceride [Mass/Vol]156 mg/dLHighNINF - 150 mg/dLBon Valley Presbyterian HospitalVirtusize Wyandot Memorial HospitalComment on above: Triglyceride Guidelines: <150 Desirable 150-199 Borderline 200-499 High >499 Very high Based on AHA Guidelines for fasting triglyceride, April 2012. [facility] HealthFormisimoSentara Martha Jefferson HospitalLipid Profileon [id number] [Mass/Vol]152 mg/dLNormal0-199[facility] Southeast OhioComment on above:Result Comment: Cholesterol Guidelines: <200 Desirable 200-240 Borderline >240 UndesirablePerformed By: #### LIPR #### [employer] [address] [place] [address] [phone] Television Installer Helper: NATALIO Tavarezholesterol in HDL [Mass/Vol]33 mg/dLLow>40[facility] Southeast OhioComment on above:Result Comment: HDL Guidelines: <40 Undesirable 40-59 Borderline >59 DesirablePerformed By: #### LIPR #### [employer] [address] [place] [address] [phone] Television Installer Helper: NATALIO Tavarezholesterol in LDL [Mass/Vol]88 mg/dLNormal0-100 [facility] Southeast OhioComment on above:Result Comment: LDL Guidelines: <100 Desirable 100-129 Near to/above Desirable 130-159 Borderline >159 Undesirable Direct (measured) LDL and calculated LDL are not interchangeable tests.Performed By: #### LIPR #### [employer] [address] [place] [address] Television Installer Helper: NATALIO Tavarezholesterol in VLDL [Mass/Vol]31 mg/dLNormal [facility] Southeast OhioComment on above:Performed By: #### LIPR #### [employer] [address] [place] [address] Television Installer Helper: NATALIO Tavarezholesterol.total/Cholesterol in HDL [Mass ratio]5.0 {ratio}NormalSelect Medical Specialty Hospital - Southeast OhioComment on above:Performed By: #### LIPR #### [employer] [address] [place], [place] [phone] Television Installer Helper: Osvaldo Santamaria MDTriglyceride [Mass/Vol]156 mg/dLHigh<150[facility] Southeast OhioComment on above:Result Comment: Triglyceride Guidelines: <150 Desirable 150-199 Borderline 200-499 High >499 Very high Based on AHA Guidelines for fasting triglyceride, April 2012.Performed By: #### LIPR #### [employer] [address] [place] [address] Television Installer Helper: Osvaldo Santamaria MDUS GALLBLADDER RUQon [id number] GALLBLADDER RUQEXAMINATION: RIGHT UPPER QUADRANT ULTRASOUND 03/06/2024 9:58 am COMPARISON: None. HISTORY: ORDERING SYSTEM PROVIDED HISTORY: Elevated liver enzymes TECHNOLOGIST PROVIDED HISTORY: This procedure can be scheduled via [facility]. elevated liver enzymes, fam hx [...] Signed by: Hernandez Stewart MD 03/06/24 Final resultNormalSelect Medical Specialty Hospital - Southeast OhioCBCon 88-97-8721Kkotmhocmns distribution width (RBC) [Ratio]12.4 %Uroqrp77.8-14.4[facility] Southeast OhioComment on above: Performed By: #### FEBC #### [facility] [address] [place] [address] Television Installer Helper: Osvaldo Santamaria MD #### CBC, CP #### [address] [place], [place] [phone] Television Installer Helper: Yelena Greco MDHematocrit (Bld) [Volume fraction]40.2 %Normal 36.3-47.1MMercy Health Urbana HospitalComment on above:Performed By: #### FEBC #### [address] [address] Television Installer Helper: Osvaldo Santamaria MD #### CBC, CP #### [address] [place] [phone] Television Installer Helper: Yelena Greco MDHemoglobin (Bld) [Mass/Vol]13.5 g/dLNormal 11.9-15.1MMercy Health Urbana HospitalComment on above:Performed By: #### FEBC #### [address] [place] [address] Television Installer Helper: Osvaldo Santamaria MD #### CBC, CP #### [address] [place] [phone] Television Installer Helper: YULY ArandaCH (RBC) [Entitic mass]29.8 zeDhmdib17.2-33.5 [facility] Southeast OhioComment on above:Performed By: #### FEBC #### [facility] [address] [place] [address] Television Installer Helper: Osvaldo Santamaria MD #### CBC, CP #### [address] [place] [address] Television Installer Helper: TY ArandaC (RBC) [Mass/Vol]33.6 g/nIBukhur02.4-34.8[facility] on above:Performed By: #### FEBC #### [address] [place] [address] Television Installer Helper: Osvaldo Santamaria MD #### CBC, CP #### [address] [place] [address] Television Installer Helper: YULY ArandaCV (RBC) [Entitic vol]88.7 gZHtvwcl39.6-102.9 [facility] OhioComment on above:Performed By: #### FEBC #### [address] [address] Television Installer Helper: Osvaldo Santamaria MD #### CBC, CP #### [address] [place], [place] [phone] Television Installer Helper: Yelena Greco MDNRBC Automated0.0 per 100 WBCNormal0.0[facility] on above:Performed By: #### FEBC #### [address] [address] Television Installer Helper: Osvaldo Santamaria MD #### CBC, CP #### [address] [place] [address] Television Installer Helper: Sobeida Aranda mean volume (Bld) [Entitic vol]8.5 fL Normal8.1-13.5[facility] on above:Performed By: #### FEBC #### [address] [address] Television Installer Helper: Osvaldo Santamaria MD #### CBC, CP #### [address] [place] [address] Television Installer Helper: Lorena Arandatezahira (Bld) [#/Vol]309 10*3/rBPbiavf818-792 [facility]leton HospitalComment on above:Performed By: #### FEBC #### [address] [place] [address] Television Installer Helper: Osvaldo Santamaria MD #### CBC, CP #### [address] [place], [place] [phone] Television Installer Helper: BILL Aranda ([facility]) [#/Vol]4.53 10*6/uLNormal3.95-5.11MerOhioHealth Grady [facility] Hospital HospitalComment on above:Performed By: #### FEBC #### [address] [address] Television Installer Helper: Osvaldo Santamaria MD #### CBC, CP #### [address] [place], [place] [phone] Television Installer Helper: Yelena Greco MDBINGHAMTON STATE [facility] ([facility]) [#/Vol]6.5 10*3/uLNormal3.5-11.3Mclermont county hospitaly Hazleton HospitalComment on above:Performed By: #### FEBC #### [address] [address] Television Installer Helper: Osvaldo Santamaria MD #### CBC, CP #### [address] [place], [place] [phone] Television Installer Helper: NATALIO Arandacastleview hospital Metabolic Profon 08-81-3548Hrqqxlo [Mass/Vol] 4.5 g/dLNormal3.5-5.2Mclermont county hospitaly Hazleton HospitalComment on above:Performed By: #### FEBC #### [address] [address] Television Installer Helper: Osvaldo Santamaria MD #### CBC, CP #### [address] [place], [place] [phone] Television Installer Helper: Yelena Greco MDAlbumin/Glob Ratio1.3Ulgior3.0-2.5[facility] Southeast OhioComment on above:Performed By: #### FEBC #### [address] [address] Television Installer Helper: Osvaldo Santamaria MD #### CBC, CP #### [address] [place], [place] [phone] Television Installer Helper: Giselle Aranda Phos74 U/WWjghwm41-431WydhpSelect Medical Specialty Hospital - Southeast OhioComment on above:Performed By: #### FEBC #### [address] [address] Television Installer Helper: Osvaldo Santamaria MD #### CBC, CP #### [address] [place], [place] 9113583 Television Installer Helper: Yelena Greco MDALT [Catalytic activity/Vol]61 U/LHigh5-33[facility] Southeast OhioComment on above:Performed By: #### FEBC #### [address] [address] Television Installer Helper: Osvaldo Santamaria MD #### CBC, CP #### [address] [place], [place] 2157983 Television Installer Helper: Lindsay Aranda gap [Moles/Vol]8 mmol/LLow9-17[facility] - Southeast OhioComment on above:Performed By: #### FEBC #### [address] [address] Television Installer Helper: Osvaldo Santamaria MD #### CBC, CP #### [address] [place], [place] [phone] Television Installer Helper: Yelena Greco MDAST [Catalytic activity/Vol]43 U/LHigh<32[facility] - Southeast OhioComment on above:Performed By: #### FEBC #### [address] [address] Television Installer Helper: Osvaldo Santamaria MD #### CBC, CP #### [address] [place], [place] [phone] Television Installer Helper: Yelena Greco MDBilirubin [Mass/Vol]0.2 mg/dLLow0.3-1.2MercVan Wert County Hospital HospitalComment on above:Performed By: #### FEBC #### [address] [address] Television Installer Helper: Osvaldo Santamaria MD #### CBC, CP #### [address] [place] [phone] Television Installer Helper: Yelena Greco MDBUN/CRE Svtgn75Qxynpx0-92Pugrj [facility] Comment on above:Performed By: #### FEBC #### [address] [address] Television Installer Helper: Osvaldo Santamaria MD #### CBC, CP #### [address] [place] [phone] Television Installer Helper: NATALIO Arandaalcium [Mass/Vol]9.4 mg/dLNormal8.6-10.4[facility] OhioComment on above:Performed By: #### FEBC #### [address] [address] Television Installer Helper: Osvaldo Santamaria MD #### CBC, CP #### [address] [place], [place] 7891883 Television Installer Helper: NATALIO Arandahloride [Moles/Vol]100 mmol/CRgtokw21-699UuuqySelect Medical Specialty Hospital - Southeast OhioComment on above:Performed By: #### FEBC #### [address] [address] Television Installer Helper: Osvaldo Santamaria MD #### CBC, CP #### [address] [place], [place] 9561783 Television Installer Helper: NATALIO ArandaO2 [Moles/Vol]28 mmol/MFxnrpd89-84OqniiSelect Medical Specialty Hospital - Southeast OhioComment on above:Performed By: #### FEBC #### [facility] [address] [place] [address] Television Installer Helper: Osvaldo Santamaria MD #### JERAMIE, CP #### [address] [place] [phone] Television Installer Helper: NATALIO Arandareatinine [Mass/Vol]0.6 mg/dLNormal0.5-0.9[facility] Southeast OhioComment on above:Performed By: #### FEBC #### [address] [place] [address] Television Installer Helper: Osvaldo Santamaria MD #### JERAMIE, CP #### [address] [place] [phone] Television Installer Helper: Yelena Greco MDGFR/1.73 sq M.predicted among non-blacks MDRD (S/P/Bld) [Vol rate/Area]mL/min/{1.73_m2}Normal>60[facility] Southeast OhioComment on above:Result Comment: These results are not [...] renal tubular secretion.Performed By: #### FEBC #### [facility] [employer] [address] [place] [address] Television Installer Helper: Osvaldo Santamaria MD #### CBC, CP #### [address] [place] [address] Television Installer Helper: Yelena Greco MDGlucose [Mass/Vol]91 mg/kZTqscgl46-81Ahkpq The Institute Of LivingComment on above:Performed By: #### FEBC #### [address] [address] Television Installer Helper: Osvaldo Santamaria MD #### CBC, CP #### [address] [place], [place] 2753583 Television Installer Helper: ROLANDO Arandaotassium [Moles/Vol]4.2 mmol/LNormal3.7-5.3[facility] Hazleton HospitalComment on above:Performed By: #### FEBC #### [address] [address] Television Installer Helper: Osvaldo Santamaria MD #### JERAMIE, CP #### [address] [place] [phone] Television Installer Helper: Yelena Greco MDProtein [Mass/Vol]7.6 g/dLNormal6.4-8.3Mclermont county hospitaly Hazleton HospitalComment on above:Performed By: #### FEBC #### [address] [address] Television Installer Helper: Osvaldo Santamaria MD #### JERAMIE, CP #### [address] [place], [place] 4674183 Television Installer Helper: Yelena Greco MDSodium [Moles/Vol]136 mmol/BZgvqul631-786Wlzzp The Institute Of LivingComment on above:Performed By: #### FEBC #### [address] [address] Television Installer Helper: Osvaldo Santamaria MD #### CBC, CP #### [address] [place], [place] 0307983 Television Installer Helper: Yelena Greco MDUrea nitrogen [Mass/Vol]12 mg/dLNormal6-20[facility] HospitalComment on above:Performed By: #### FEBC #### [address] [address] Television Installer Helper: Osvaldo Santamaria MD #### CBC, CP #### [address] [place], [place] 1784183 Television Installer Helper: Jorje Arandan Binding Cap.on 02-16-2024% Fe Ugoklhgbij33 % Yfrnsk48-33Hqrto [facility]iffin HospitalComment on above:Performed By: #### FEBC #### [address] [address] Television Installer Helper: Osvaldo Santamaria MD #### CBC, CP #### [address] [place] [address] Television Installer Helper: Una Aranda [Mass/Vol]92 ug/zXMsaetz81-331Eottx [facility] HospitalComment on above:Performed By: #### FEBC #### [address] [address] Television Installer Helper: Osvaldo Santamaria MD #### CBC, CP #### [address] [place], [place] 8445983 Television Installer Helper: Yelena Greco MDTotal Fe Binding Amn466 ug/cZFkdyjb999-370Popal [facility] HospitalComment on above:Performed By: #### FEBC #### [address] [address] Television Installer Helper: Osvaldo Santamaria MD #### CBC, CP #### [address] [place], [place] 6378883 Television Installer Helper: Yelena Greco MDUnbound Fe Bind Zmf321 ug/uTQtdmgm757-996Biety [facility] HospitalComment on above:Performed By: #### FEBC #### [address] [address] Television Installer Helper: Osvaldo Santamaria MD #### CBC, MICAH #### [facility] [address] [place] [address] Television Installer Helper: Yelena Greco MDLipid Profileon 64-94-4746Abfnlxrufvd [Mass/Vol] 245 mg/dLHigh0-199OhioHealthment on above:Result Comment: Cholesterol Guidelines: <200 Desirable 200-240 Borderline >240 UndesirablePerformed By: #### LIPR #### [address] [address] Television Installer Helper: Osvaldo Santamaria, MDCholesterol in HDL [Mass/Vol]34 mg/dLLow>40[facility] on above:Result Comment: HDL Guidelines: <40 Undesirable 40-59 Borderline >59 DesirablePerformed By: #### LIPR #### [address] [address] Television Installer Helper: Osvaldo Santamaria MDCholesterol in LDL [Mass/Vol]159 mg/dLHigh0-100 [facility] on above:Result Comment: LDL Guidelines: <100 Desirable 100-129 Near to/above Desirable 130-159 Borderline >159 Undesirable Direct (measured) LDL and calculated LDL are not interchangeable tests.Performed By: #### LIPR #### [address] [address] Television Installer Helper: Osvaldo Santamaria MDCholesterol in VLDL [Mass/Vol]52 mg/dLNormal [facility] OhioComvibra hospital [facility] [place] on above:Performed By: #### LIPR #### [facility] [employer] [address] [place] [address] Television Installer Helper: Chance Tavarezstmilad.total/Cholesterol in HDL [Mass ratio]7.0 {ratio}NormalSelect Medical Specialty Hospital - Southeast OhioComvibra hospital [facility] [place] on above:Performed By: #### LIPR #### [facility] [employer] [address] [place] [address] Television Installer Helper: Osvaldo Santamaria MDTriglyceride [Mass/Vol]259 mg/dLHigh<150[facility] Southeast OhioComment on above:Result Comment: Triglyceride Guidelines: <150 Desirable 150-199 Borderline 200-499 High >499 Very high Based on AHA Guidelines for fasting triglyceride, April 2012.Performed By: #### LIPR #### [employer] [address] [place] [address] Television Installer Helper: Osvaldo Santamaria MDOffice Visiton [id number]-up visit [id number] Vinny Downey 2000 Provider Department Center 07/11/2023 CoralRAJENDRA REBOLLEDO SAMSON Mccormick Family History Problem Relation Age of Onset Anemia Mother Supraventricular tachycardia Father Hyperlipidemia Father Diabetes Sister Family Status - Relation Status Age at Mother Father Sister Level of Service:85464 PA OFFICE/OUTPATIENT NEW MODERATE MDM 45 MINUTESNoMercy HospitalOffice Visiton 45-37-3248Jprxrn-up visit [id number] Vinny Downey 2000 Provider Department Center 03/20/2023 ISRAEL ULLOA SAMSON Liriano Hos Family History Problem Relation Age of Onset Anemia Mother Supraventricular tachycardia Father Hyperlipidemia Father Diabetes Sister Family Status - Relation Status Age at Mother Father Sister Level of Service:18193 PA OFFICE/OUTPATIENT NEW LOW MDM 30-44 MINUTESNoMercy HospitalUS PREG BIOPHY W NON STRESSon [id number] PREG BIOPHY W NON STRESSEXAMINATION: US PREG [...] Electronically authenticated by: YELENA CARLOS Date: 2022-12-20 07:03[facility] PREG PLACENTAon [id number] PREG PLACENTAEXAMINATION: US PREG PLACENTA HISTORY: Left [...] authenticated by: LUIS ALFREDO GRANT Date: 2022-12-12 14:56[facility] PREG BIOPHY W NON STRESSon [id number] PREG BIOPHY W NON STRESSEXAMINATION: US PREG [...] authenticated by: LUIS ALFREDO GRANT Date: 2022-12-11 04:08[facility] PREG GROWTHon [id number] PREG GROWTHEXAMINATION: US PREG GROWTH HISTORY: High [...] authenticated by: LUIS ALFREDO GRANT Date: 2022-12-11 04:06[facility] HospitalGTT 3 HR PREGon [id number] [Mass/Vol]98 mg/dLNormal 74-106[facility] HospitalComment on above:Performed By: #### GTT3P #### [facility] [address] [place] [address] Dr. Emilee SpringerGlucose [Mass/Vol]170 mg/dLWhite HospitalComment on above:Performed By: #### GTT3P #### [facility] [address] [place] [address] Dr. Emilee SpringerGlucose [Mass/Vol]201 mg/dLWhite HospitalComment on above:Performed By: #### GTT3P #### [facility] [address] [place] [address] Dr. Emilee SpringerGlucose [Mass/Vol]115 mg/dLWhite HospitalComment on above:Performed By: #### GTT3P #### [facility] [address] [place] [address] Dr. Emilee Mcconnell PREG INCOMPLETE ANATOMYon [id number] PREG INCOMPLETE ANATOMY EXAM: US PREG INCOMPLETE ANATOMY HISTORY: screening COMPARISON: 09/10/2022 TECHNIQUE: Transabdominal FINDINGS: position: Transverse, head to the maternal right Heart rate: 157 bpm Normal observed anatomy: Nose/lips, four-chamber heart, left ventricular outflow tract, right ventricular outflow tract, spine IMPRESSION: Normal observed anatomy Electronically authenticated by: YELENA CARLOS Date: 2022-10-16 08:44[facility] AUTO DIFFon [id number] #0.0 103/ulNormal0.0-0.1[facility] HospitalComment on above:Performed By: #### CBC #### [facility] [address] [address] [address] Emilee SpringreBasophils/100 WBC (Bld)0.2 %Normal0.2-2.0[facility] Comment on above:Performed By: #### CBC #### [facility] [address] [place] [address] Dr. Emilee Weldon #0.1 103/ulNormal0.0-0.7The [facility] HospitalComment on above: Performed By: #### CBC #### [facility] [address] [place] [address] Dr. Emilee Cintronosinophils/100 WBC (Bld)0.8 %Critically low0.9-7.0The [facility] HospitalComment on above:Performed By: #### CBC #### [facility] [address] [place] [address] Dr. Emilee Cintronrythrocyte distribution width (RBC) [Ratio]12.5 %Oingvc19.0-15.0 [facility] HospitalComment on above:Performed By: #### CBC #### [facility] [address] [place] [address] Dr. Emilee SpringerHematocrit (Bld) [Volume fraction]29.8 %Critically low36.0-48.0 [facility] HospitalComment on above:Performed By: #### CBC #### [facility] [address] [place] [address] Dr. Emilee SpringerHemoglobin (Bld) [Mass/Vol]10.0 g/dLCritically low12.0-16.0[facility] HospitalComment on above:Performed By: #### CBC #### [facility] [address] [place] [address] Dr. Emilee Van #0.05 10e3/ulCritically high0.00-0.03[facility] Comment on above:Performed By: #### CBC #### [facility] [address] [place] [address] Dr. Emilee Van %0.5 %Normal0.0-0.5The [facility] HospitalComment on above: Performed By: #### CBC #### [facility] [address] [address] [address] Emilee Renae #1.6 103/ulNormal1.2-3.8The [facility] HospitalComvibra hospital of [facility] [place] on above:Performed By: #### CBC #### [facility] [address] [place] [address] Dr. Emilee Danielhocytes/100 WBC (Bld)15.3 %Critically low20.5-60.0The [facility] HospitalComment on above:Performed By: #### CBC #### [facility] [address] [place] [address] Dr. Emilee Esquivel DIFF REQNONormalThe [facility] HospitalComment on above: Performed By: #### CBC #### [facility] [address] [place] [address] Dr. Emilee Hannah (RBC) [Entitic mass]30.2 wvVdodwp00.7-34.0The [facility] HospitalComment on above:Performed By: #### CBC #### [facility] [address] [place] [address] Dr. Emilee Guevara (RBC) [Mass/Vol]33.6 g/cYFkwbhy67.9-35.2The [facility] on above:Performed By: #### CBC #### [facility] [address] [place] [address] Dr. Emilee Guevara (RBC) [Entitic vol]90.0 fQFailnf97.0-99.0The [facility] HospitalComment on above:Performed By: #### CBC #### [facility] [address] [place] [address] Dr. Emilee Banegas #0.6 103/ulNormal0.3-0.8The [facility] on above:Performed By: #### CBC #### [facility] [address] [place] [address] Dr. Emilee Hightowerocytes/100 WBC (Bld)5.8 %Normal1.7-12.0The [facility] Comment on above:Performed By: #### CBC #### [facility] [address] [place] [address] Dr. Emilee Fernandez #8.2 103/ulCritically high1.4-6.5The [facility] Comment on above:Performed By: #### CBC #### [facility] [address] [place] [address] Dr. Emilee Meeksutrophils/100 WBC (Bld)77.4 %Critically high43.0-75.0The [facility] HospitalComment on above:Performed By: #### CBC #### [facility] [address] [place] [address] Dr. Emilee Olmedolet mean volume (Bld) [Entitic vol]8.5 fLCritically low 9.5-13.5The [facility] HospitalComment on above:Performed By: #### CBC #### [facility] [address] [place] [address] Dr. Emilee SpringerPLT347 103/izOqdcta115-257Ukx [facility] HospitalComment on above: Performed By: #### CBC #### [facility] [address] [place] [address] Dr. Emilee SpringerRBC3.31 106/ulCritically low4.20-5.40The [facility] HospitalComment on above:Performed By: #### CBC #### [facility] [address] [place] [address] Dr. Emilee SpringerWBC10.6 103/ulNormal4.0-11.0The [facility] HospitalComment on above:Performed By: #### CBC #### [facility] [address] [place] [address] Dr. Emilee SpringerGLUCOSE - 1HRon 66-58-5558Kmyuakx [Mass/Vol]176 mg/dLCritically pepd68-934Axd [facility] HospitalComment on above:Performed By: #### GLU1HR #### [facility] [address] [place] [address] Dr. Yilan ChangCHLAMYDIA/GONOCOCCUS ANISA (SWAB/URINE/PAPon 33-88-0560Apnjefhka trachomatis, NAANegativeNormalNegativeThe [facility] HospitalComment on above: Performed By: #### CBC #### [facility] [address] [place] [address] Dr. Emilee SpringerNeisseria gonorrhoeae, NAANegativeNormalNegativeMercy Health Allen HospitalComment on above:Performed By: #### CBC #### [facility] [address] [address] [address] Emilee SpringerVAGINITIS/VAGINOSIS DNA PROBEon 84-19-0365Lrdnips speciesNegative NormalNegativeThe [facility] HospitalComment on above:Performed By: #### CBC #### [facility] [address] [place] [address] Dr. Emilee Wickdnerelllinda vaginalisNegativeNormalNegativeMercy Health Allen Hospital Comment on above:Performed By: #### CBC #### [facility] [address] [place] [address] Dr. Emilee SpringerTrichomonas vaginalisNegativeNormnjNegativeMercy Health Allen Hospital Comment on above:Performed By: #### CBC #### [facility] [address] [place] [address] Dr. Emilee Mcconnell PREG ANATOMY SINGLEon 08-11-7958KC PREG ANATOMY SINGLE EXAMINATION: US PREG ANATOMY [...] authenticated by: LUIS ALFREDO GRANT Date: 2022-09-13 16:57[facility] MATERNAL FOR SPINA BIFIDAon 27-03-0810SSP MoM0.42White HospitalComment on above:Performed By: #### AFPMAT #### [facility] [address] [place] [address] Dr. Emilee Yoder Value16.7 ng/mLNBucyrus Community HospitalComment on above: Performed By: #### AFPMAT #### [facility] [address] [place] [address] Dr. Emilee Yoder, Serum for Spina BifidaReMcKitrick Hospital Comment on above:Performed By: #### AFPMAT #### [facility] [address] [place] [address] Dr. Emilee SpringerSsm Depaul Health CenterfaustinoBlanchard Valley Health SystemComment on above:Result Comment: Pam Machado, Ph.D., [facility] Director . References: Available Upon Request. . Multiples Of Median Cutoffs For AFP Elevations Berkowitz 2.5 Black 2.8 IDD 2.0 Twins 4.5 Abbreviation Definitions IDD - Insulin Dep Diabetes OSBR - Open Spina Bifida Risk . For further inquiries contact [facility] at [phone]. . This test was developed and its performance characteristics determined by Where Was it Filmed. It has not been cleared or approved by the Food and Drug Administration.Performed By: #### AFPMAT #### [facility] [address] [address] [address] Emilee Barrow Age Collection Date18.6 weeks[facility] Comment on above:Performed By: #### AFPMAT #### [facility] [address] [address] [address] Emilee Barrowat, Age Based onECleveland Clinic South Pointe HospitalComment on above:Result Comment: 01/26/2023 Recalculations are not recommended when gestational dating by LMP and ultrasound are within 10 days.Performed By: #### AFPMAT #### [facility] [address] [address] [address] Emilee Luis Lutheran HospitalComment on above:Result Comment: Not provided. .Performed By: #### AFPMAT #### [facility] [address] [place] [address] Dr. Emilee SpringerInterpretationBlanchard Valley Health SystemComment on above: Result Comment: Interpretation: Screen Negative [...] Customer Services to discuss available options. The [employer] recommends amniocentesis be offered to women age 35 and older.Performed By: #### AFPMAT #### [facility] [address] [address] [address] Emilee Chong [age] at ED[age] yrWhite HospitalComment on above:Performed By: #### AFPMAT #### [facility] [address] [address] [address] Emilee Marqueziplmaria elena [facility] NorthComvibra hospital [facility] [place] on above:Result Comment: Not provided. .Performed By: #### AFPMAT #### [facility] [address] [place] [address] Dr. Emilee SpringerOSBR Risk 1 [id number] Arms HospitalComment on above: Performed By: #### AFPMAT #### [facility] [address] [place] [address] Dr. Emilee Galo.NormalThe [facility] HospitalComvibra hospital of [facility]heastern [place] on above:Performed By: #### AFPMAT #### [facility] [address] [place] [address] Dr. Emilee SpringerRaceCommentNoAultman Hospital on above:Result Comment: Not provided. .Performed By: #### AFPMAT #### [facility] [address] [place] [address] Dr. Emilee Arvizu Results:NegativeNoSheltering Arms HospitalComment on above: Performed By: #### AFPMAT #### [facility] [address] [place] [address] Dr. Emilee SpringerRujessea antibody, IgGon 73-78-3392Vupuukl virus IgG Ql (S)314.5 IU/mLBath Community Hospital on above: REFERENCE RANGE: <5.0 NON-REACTIVE (non-immune) 5.0 TO 9.9 EQUIVOCAL >=10.0 REACTIVE (immune) [facility] B SURFACE ANTIGEN SCREENon 76-64-1001YFuPp Screen NegativeNormalNegativeThe [facility] on above:Performed By: #### HBSANS #### [facility] [address] [place] [address] Dr. Emilee SpringerHEPATITIS C VIRUS AB W/ REFLEX QUANTon 89-73-1197ZTI AB<0.1Normal 0.0-0.9The [facility] on above:Performed By: #### HCVPCRR #### [facility] [address] [place] [address] Dr. Emilee SpringerInterpretation:CommentSelect Medical Specialty Hospital - [facility] North on above:Result Comment: Negative Not infected with HCV, unless recent infection is suspected or other evidence exists to indicate HCV infection.Performed By: #### HCVPCRR #### [facility] [address] [place] [address] Dr. Emliee JallohV 1 AND 2 WITH REFLEXon 37-95-8614YKE Screen 4th Generation wRfxNon-ReactiveNormalNon ReactiveThe University Hospitals Conneaut Medical Centerment on above:Result Comment: HIV Negative HIV-1/HIV-2 antibodies and HIV-1 p24 antigen were NOT detected. There is no laboratory evidence of HIV infection.Performed By: #### CBC #### [facility] [address] [place] [address] Dr. Emilee SpringerRPR QUANTon 76-06-7868Aqnes Plasma Reagin, QuantNon-Reactive NormalNonRea<1:1[facility] on above:Result Comment: Please Note: This test does not meet current guidelines for screening and diagnosis of syphilis. This test is intended for following treatment response in patients being treated for syphilis infection. To screen for syphilis infection, a reflex cascade that includes both RPR and a treponema-specific assay should be utilized, such as Treponema pallidum (Syphilis) Screening Worden (385777) or Rapid Plasma Reagin (RPR) Test With Reflex to Quantitative RPR and Confirmatory Treponema pallidum Antibodies (898923).Performed By: #### CBC #### [facility] [address] [place] [address] Dr. Emilee Ramírez AB IGGon 34-90-5089Voahtlk Antibodies, IgG5.03 index NormalImmune >0.99[facility] on above:Result Comment: Non- immune <0.90 Equivocal 0.90 - 0.99 Immune >0.99Performed By: #### RUBIGG #### [facility] [address] [place] [address] Dr. Emilee Killian AUTO DIFFon 07-77-6287FEXM #0.0 103/ulNormal0.0-0.1The [facility] Conneaut Medical Centerment on above:Performed By: #### GLU1HR #### [facility] [address] [place] [address] Dr. Emilee SpringerBasophils/100 WBC (Bld)0.2 %Normal0.2-2.0[facility] Comment on above:Performed By: #### GLU1HR #### [facility] [address] [place] [address] Dr. Emilee Weldon #0.1 103/ulNormal0.0-0.7The [facility] County HospitalComment on above: Performed By: #### GLU1HR #### [facility] [address] [place] [address] Dr. Emilee Cintronosinophils/100 WBC (Bld)0.9 %Normal0.9-7.0[facility] Comment on above:Performed By: #### GLU1HR #### [facility] [address] [place] [address] Dr. Emilee Cintronrythrocyte distribution width (RBC) [Ratio]11.9 %Staxzg96.0-15.0 The [facility] HospitalComment on above:Performed By: #### GLU1HR #### [facility] [address] [place] [address] Dr. Emilee SpringerHematocrit (Bld) [Volume fraction]32.9 %Critically low36.0-48.0 The [facility] HospitalComment on above:Performed By: #### GLU1HR #### [facility] [address] [place] [address] Dr. Emilee SpringerHemoglobin (Bld) [Mass/Vol]11.6 g/dLCritically low12.0-16.0The [facility] HospitalComment on above:Performed By: #### GLU1HR #### [facility] [address] [place] [address] Dr. Emilee Van #0.03 10e3/ulNormal0.00-0.03The [facility] HospitalComment on above:Performed By: #### GLU1HR #### [facility] [address] [place] [address] Dr. Emilee Van %0.3 %Normal0.0-0.5The [facility] HospitalComment on above: Performed By: #### GLU1HR #### [facility] [address] [place] [address] Dr. Emilee Renae #2.1 103/ulNormal1.2-3.8The [facility] HospitalComment on above:Performed By: #### GLU1HR #### [facility] [address] [place] [address] Dr. Emilee Danielhocytes/100 WBC (Bld)20.2 %Critically low20.5-60.0The [facility] HospitalComment on above:Performed By: #### GLU1HR #### [facility] [address] [place] [address] Dr. Emilee PenningtonUAL DIFF REQNONormalThe [facility] HospitalComment on above: Performed By: #### GLU1HR #### [facility] [address] [place] [address] Dr. Emilee Hannah (RBC) [Entitic mass]31.4 kbEptnxn45.7-34.0The [facility] HospitalComment on above:Performed By: #### GLU1HR #### [facility] [address] [place] [address] Dr. Emilee Guevara (RBC) [Mass/Vol]35.3 g/dLCritically high29.9-35.2The [facility] HospitalComment on above:Performed By: #### GLU1HR #### [facility] [address] [place] [address] Dr. Emilee Guevara (RBC) [Entitic vol]89.2 rDEquojk48.0-99.0The [facility] HospitalComment on above:Performed By: #### GLU1HR #### [facility] [address] [place] [address] Dr. Emilee Banegas #0.7 103/ulNormal0.3-0.8The [facility] HospitalComment on above:Performed By: #### GLU1HR #### [facility] [address] [place] [address] Dr. Emilee Hightowerocytes/100 WBC (Bld)7.0 %Normal1.7-12.0[facility] Comment on above:Performed By: #### GLU1HR #### [facility] [address] [place] [address] Dr. Emilee Fernandez #7.5 103/ulCritically high1.4-6.5[facility] Comment on above:Performed By: #### GLU1HR #### [facility] [address] [place] [address] Dr. Emilee Meeksutrophils/100 WBC (Bld)71.4 %Dnszqq12.0-75.0The [facility] HospitalComment on above:Performed By: #### GLU1HR #### [facility] [address] [place] [address] Dr. Emilee SpringerPlatelet mean volume (Bld) [Entitic vol]9.1 fLCritically low 9.5-13.5The [facility] HospitalComment on above:Performed By: #### GLU1HR #### [facility] [address] [place] [address] Dr. Emilee SpringerPLT311 103/xmWzbjpk662-186Vas [facility] County HospitalComment on above: Performed By: #### GLU1HR #### [facility] [address] [place] [address] Dr. Emilee SpringerRBC3.69 106/ulCritically low4.20-5.40The [facility] HospitalComment on above:Performed By: #### GLU1HR #### [facility] [address] [place] [address] Dr. Emilee SpringerWBC10.5 103/ulNormal4.0-11.0The [facility] HospitalComment on above:Performed By: #### GLU1HR #### [facility] [address] [place] [address] Dr. Emilee SpringerCULTDENZEL URINEon 17-01-2416SJXFRLG URINECulture Observations: LIGHT GROWTH OF MIXED GENITAL BREN. NO POTENTIAL PATHOGENS SEEN.NormalThe [facility] HospitalComment on above:Performed By: #### GLU1HR #### [facility] [address] [place] [address] Dr. Emilee SpringerGLYCOHEMOGLOBIN A1Con 70-67-8435ECE RECOMMENDATIONSEE BELOWNormal The [facility] HospitalComment on above:Result Comment: ADA RECOMMENDED LIMIT 4.0 - 6.0 ADA THERAPEUTIC TARGET < 7.0 ACTION SUGGESTED > 7.0Performed By: #### A1C #### [facility] [address] [place] [address] Dr. Emilee SpringerGlucose [Mass/Vol]108 mg/dLNoSheltering Arms HospitalComment on above:Performed By: #### A1C #### [facility] [address] [place] [address] Dr. Emilee SpringerHbA1c (Bld) [Mass fraction]5.4 %Normal4.5-6.2The [facility] HospitalComment on above:Performed By: #### A1C #### [facility] [address] [place] [address] Dr. Emilee Alonzo BOX TEST PT SEND OUTon 15-35-4390HFXL TO REF LAB07/04/2022 NormalThe [facility] HospitalComvibra hospital of [facility] [place] on above:Performed By: #### NBOX #### [facility] [address] [place] [address] Dr. Emilee SpringerTYPE AND SCREENon 41-36-4596KCNX AND SCREENNegativeNoSheltering Arms HospitalComvibra hospital of [facility] [place] on above:Performed By: #### GLU1HR #### [facility] [address] [place] [address] Dr. Emilee SpringerUS PREG TVon 23-67-2082QN PREG TVEXAMINATION: US PREG TV HISTORY: test [...] Electronically authenticated by: YELENA CARLOS Date: 2022-06-23 17:00[facility] Campus [facility] CenterG, Quantitative, Pregnancyon 98-48-0164uRZ Lqyne54695CefdUWWM [facility] on above: Non-preg premeno <=5 Postmeno <=8 Male <=3 If HCG results do not concur with clinical observations, additional testing to confirm results is recommended. Interpretation and review of laboratory resultsAbnormalUVA HEALTH UNIVERSITY HOSPITALOG PANEL 2: 21 to 29on 04-24-2022..NormalThe [facility] on above:Performed By: #### [id number] #### [facility] [address] [place] [address] Dr. Emilee SpringerAge Gdln ACOG Yewwqbd65-09KaoahrPfiSelect Medical Specialty Hospital - [facility] on above:Performed By: #### [id number] #### [facility] [address] [place] [address] Dr. Emilee SpringerDIAGNOSIS:CommentSelect Medical Specialty Hospital - [facility] North on above: Result Comment: NEGATIVE FOR INTRAEPITHELIAL LESION OR MALIGNANCY. CELLULAR CHANGES ASSOCIATED WITH INFLAMMATION ARE PRESENT.Performed By: #### [id number] #### [facility] [address] [place] [address] Dr. Emilee SpringerMethodology:CommentSelect Medical Specialty Hospital - [facility] on above: Result Comment: This liquid based ThinPrep(R) pap test was screened with the use of an image guided system.Performed By: #### [id number] #### [facility] [address] [place] [address] Dr. Emilee SpringerNote:CommentSelect Medical Specialty Hospital - [facility] on above:Result Comment: The Pap smear is a screening test designed to aid in the detection of premalignant and malignant conditions of the uterine cervix. It is not a diagnostic procedure and should not be used as the sole means of detecting cervical cancer. Both false-positive and false-negative reports do occur. .Performed By: #### [id number] #### [facility] [address] [place] [address] Dr. Emilee SpringerPerformed by:CommentSelect Medical Specialty Hospital [facility] on above: Result Comment: Mary Lou Adams, CytotechnologistPerformed By: #### [id number] #### [facility] [address] [address] [address] Emilee SpringerReflex Criteria:CommentSelect Medical Specialty Hospital - [facility] North on above:Result Comment: The HPV DNA reflex criteria were not met with this specimen result therefore, no HPV testing was performed. .Performed By: #### [id number] #### [facility] [address] [address] [address] Emilee SpringerSpecimen adequacy:CommentSelect Medical Specialty Hospital - [facility] on above:Result Comment: Satisfactory for evaluation. Endocervical and/or squamous metaplastic cells (endocervical component) are present.Performed By: #### [id number] #### [facility] [address] [address] [address] Emilee SpringerHCG, Quantitative, Pregnancyon 32-95-3886bKV Neket47Jbit<5 IU/L [facility] Healthcare Main CampusZapierSsm Depaul Health Centerment on above: Non-preg premeno <=5 Postmeno <=8 Male <=3 If HCG results do not concur with clinical observations, additional testing to confirm results is recommended. Elevated results not associated with may be found in patients with other diseases such as tumors of the germ cells (testis, ovaries, etc.), bladder, pancreas, stomach, lungs, and liver. Interpretation and review of laboratory resultsAbnoBellin Health's [facility] RENAL COMPLETEOrdered By: Lorena Ricks on 93-12-7577Otmaarrtlbgm ultrasound of the kidneys and urinary bladder.[employer] Phone: eXAMINATION: RETROPERITONEAL ULTRASOUND OF THE KIDNEYS AND URINARY BLADDER 11/25/2020 COMPARISON: None HISTORY: ORDERING SYSTEM PROVIDED HISTORY: Frequent UTI TECHNOLOGIST PROVIDED HISTORY: This procedure can be scheduled via [employer]. Access your [employer] account by visiting [employer]. FINDINGS: Kidneys: The right kidney measures 11.1 cm in length and the left kidney measures 11.6 cm in length. Kidneys demonstrate normal cortical echogenicity. No evidence of hydronephrosis or intrarenal stones. Bladder: Unremarkable appearance of the bladder. No significant post void residual.[employer] Phone: eanuj, Mhkirsten Incoming Radiant Results From [employer] - 11/25/2020 3:59 PM EDT EXAMINATION: RETROPERITONEAL ULTRASOUND OF THE KIDNEYS AND URINARY BLADDER 11/25/2020 COMPARISON: None HISTORY: ORDERING SYSTEM PROVIDED HISTORY: Frequent UTI TECHNOLOGIST PROVIDED HISTORY: This procedure can be scheduled via [employer]. Access your [employer] account by visiting [employer]. FINDINGS: Kidneys: The right kidney measures 11.1 cm in length and the left kidney measures 11.6 cm in length. Kidneys demonstrate normal cortical echogenicity. No evidence of hydronephrosis or intrarenal stones. Bladder: Unremarkable appearance of the bladder. No significant post void residual. IMPRESSION: Unremarkable ultrasound of the kidneys and urinary bladder. [employer] Phone: Formson 75-15-1272Ngogo [id number]#1.00CD:127NoAultman Alliance Community HospitalAmbulatory Clinical Summaryon 70-08-5370Yljiowaudx Clinical Summary {39-ns-bp-qb-cp-42-78-76-e9-1e-g7-97-5a-16-ce-86}CD:[id number] Ohio Medical CenterGeneral Surgery Office/Clinic Noteon 90-60-6587Bhclojy Surgery Office/Clinic NoteChief Complaint post operative follow up HPI Staff 8 day post operative follow up post lap appendectomy completed while in-patient at [facility]. Doing well. Minimal discomfort. Taking Ibuprofen [...] available Patient Education Exercise to Lose Weight, Bwki-ge-Vklq Problem List/Past Medical History Ongoing Acute appendicitis [...] 10/13/2020 Family History Family history is negativeRuby Levind[facility] Center And HospitalComment on above: Result Comment: Electronically Signed By: LATANYA MCKENNA, Sushant Babb\Date and Time Signed: 10/13/20 13:39 EDTPatient Educationon 71-97-8858Nrnvobl Education Exercise to Lose Weight Exercise and [...] Document Reviewed: 08/12/2011 ExitCare? Patient Information ?2013 [employer].[facility] Medical CenterProvider Letter FTon 25-75-4202Imhwjert Letter [facility] October 13, 2020 ARABELLAYUMIKO VINNY C [address] [place] [address] ARABELLAYUMIKO VINNY Barnett 2000 To Whom It May Concern, Please excuse above patient from work 10/14/20. Sincerely, Dr. Sushant Lott MD General SurgeryNoAultman Alliance Community HospitalPathology Noteon 10-08-2020 Pathology [id number]#1.00CD:127[facility] Medical CenterFacesheeton 11-62-4925Fdowuzbak [id number]#1.00CD:[address] [place], [place] [address]Operative Reporton 27-61-6212Obhyeemjx Report [id number]:127[facility] Medical CenterHIV Screenon 24-15-5968XBH Ag/AbNONREACTIVENONREACTIVEBethesda North Hospital- [place], [place] Comment on above:No laboratory evidence of HIV infection. If acute HIV infection is suspected, consider testing for HIV-1 RNA. Basic Metabolic Panelon 27-92-1918Fhgqb gap [Moles/Vol]11 mmol/L9 - 17 mmol/L [facility]- [place], KYBun/Cre Bpgmx54Qcbty Health- [place], KYCalcium [Mass/Vol]9.3 mg/dL8.6 - 10.4 mg/dLBlanchard Valley Health System Health- [place], KYChloride [Moles/Vol]103 mmol/L98 - 107 mmol/LMercy Health- [place], KYCO2 [Moles/Vol]23 mmol/L20 - 31 mmol/LMercy Health- [place], KYCreatinine [Mass/Vol]0.57 mg/dL0.5 - 0.9 mg/dLBlanchard Valley Health System Health- [place], KYGFR >60>60 mL/minMer Health- [place], MTGFR Non->60>60 mL/minSelect Medical Specialty Hospital - [facility], MTGlucose [Mass/Vol]88 mg/dL70 - 99 mg/dLSelect Medical Specialty Hospital - [facility]-[place], MTPotassium [Moles/Vol]4.6 mmol/L3.7 - 5.3 mmol/LMMercy Health Perrysburg Hospital, MTSodium [Moles/Vol]137 mmol/L135 - 144 mmol/LMMercy Health [facility], MTUrea nitrogen [Mass/Vol]11 mg/dL6 - 20 mg/dLRussian Mission, KYCBCon 23-40-8634Lhlpywpgvxz distribution width (RBC) [Ratio]11.7 %Low11.8 - 14.4 %[place] Hematocrit (Bld) [Volume fraction]36.4 %36.3 - 47.1 %[place] Hemoglobin (Bld) [Mass/Vol]12.2 g/dL11.9 - 15.1 g/dLRussian Mission, [place] Interpretation and review of laboratory resultsAbnormalRussian Mission, KYMCH (RBC) [Entitic mass]31.4 pg25.2 - 33.5 pgRussian Mission, KYMCHC (RBC) [Mass/Vol]33.5 g/dL28.4 - 34.8 g/dLRussian Mission, KYMCV (RBC) [Entitic vol] 93.8 fL82.6 - 102.9 fLRussian Mission, KYPlatelet mean volume (Bld) [Entitic vol]9.2 fL8.1 - 13.5 fLRussian Mission, KYPlatelets (Bld) [#/Vol]307 10*3/uL [place], KYRBC (Bld) [#/Vol]3.88 10*6/uLLow3.95 - 5.11 m/uLRussian Mission, KYWBC (Bld) [#/Vol]7.2 10*3/uLRussian Mission, KYWBC (Bld) [#/Vol] 0.0 10*3/uL0.0 per 100 WBCRussian Mission, KYMetabolic Panelon 05-04-2020 GFR/1.73 sq M predicted among non-blacks MDRD (S/P/Bld) [Vol rate/Area][place], KYComment on above:Stage 1: Some kidney damage [...] body mass. Additional eGFR calculator available at: http://www.MobiDough/E la Carte_crcl_2011.htm HELLENon 71-74-1294PAE Qn2.22 m[IU]/LMKaneohe, [place] Vital Signs Date TimeVital SignValuePerforming EqzokoryyUhqnehdz32-95-7930 15:05-0400Body mass index (BMI) [Ratio]37.47 kg/o3JavzpFilterEasy Work Phone: NOPhelps HealthOchrfbxsvh35-05-6153 15:05-0400Body .29 kgCoreFilterEasy Work Phone: NOPhelps HealthIxiqxwwzfl25-49-4728 15:05-0400Diastolic blood fmryuqam86 mm[Hg]Sapho Work Phone: NOPhelps HealthYomcdkvxpe47-13-4059 15:05-0400Systolic blood mm[Hg]Sapho Work Phone: NOPhelps HealthQcvywsdjvz54-70-2852 15:11-0400Body mass index (BMI) [Ratio]36.7 kg/e6IddzeweaCeasar Li GROUP HOME PARAPROFESSIONAL Work Phone: NOPhelps HealthJedoaxiyuv42-43-3094 15:11-0400Body .15 kgCeasar Li GROUP HOME PARAPROFESSIONAL Work Phone: NOPhelps HealthIlibwsvdvt61-58-7526 15:11-0400Diastolic blood mm[Hg][employer] Work Phone: [facility] CenterMdfdxyfsqu73-09-8090 15:11-0400Systolic blood ulpfofdl066 mm[Hg][employer] Work Phone: [facility] CenterBybduciwtm89-73-2135 15:50-0400Body mass index (BMI) [Ratio]36.64 kg/m2Amy Oralia PA Work Phone: [facility] [phone] 15:50-0400Body aihqoy810.97 kgAmy Oralia PA Work Phone: [facility] CenterEuociqrcfg51-35-1091 15:50-0400Diastolic blood ddztcuno03 mm[Hg]Regina Barton PA Work Phone: [facility] CenterJpgxskpwwx13-88-3098 15:50-0400Systolic blood bygvscro747 mm[Hg]Regina Barton PA Work Phone: [facility] CenterRvnivhdhun91-35-9016 15:44-0400Body mass index (BMI) [Ratio]36.61 kg/m2Amy Oralia PA Work Phone: [facility] CenterLdijmkylit39-70-6163 15:44-0400Body nvpoug917.88 kgAmy Ansonia PA Work Phone: [facility] CenterDxwhuvasas09-43-0817 15:44-0400Diastolic blood ulpgswcv53 mm[Hg]Regina Barton PA Work Phone: [facility] CenterFreuwnuvbd89-14-2345 15:44-0400Systolic blood nlaogcsf327 mm[Hg]Regina Barton PA Work Phone: [facility] CenterErmiftutrz42-14-4049 16:08-0400Body mass index (BMI) [Ratio]36.12 kg/x9Ldlxe Law DO Work Phone: [facility] CenterBoxsfttmhp83-58-7373 16:08-0400Body tmakug638.52 kgCorey Law DO Work Phone: [facility] CenterAtktqsxqog30-21-2113 16:08-0400Diastolic blood tkuamekh18 mm[Hg]Mukul Law DO Work Phone: [phone] [place], [place] [address]Vrvoxsnwqd26-70-2904 16:08-0400Systolic blood wocfyylj001 mm[Hg]Mukul Law DO Work Phone: [phone])394-[address] [place], [place] [address]Wvkfqlzoqj44-19-7994 15:58-0400Body mass index (BMI) [Ratio]35.96 kg/k7Fglvo Law DO Work Phone: [phone])293-[address] [place], [place] [address]Jxyttlubth82-15-4173 15:58-0400Body pidnna141.06 kgCorey Law DO Work Phone: [phone])292-[address] [place], [place] [address]Wjvxlyrnei70-74-7564 15:58-0400Diastolic blood rfexfrxo54 mm[Hg]Mukul Law DO Work Phone: 1(286)370-[address] [place], [place] [address]Bcakazpkuy33-11-1139 15:58-0400Systolic blood ekaucsqt561 mm[Hg]Mukul Law DO Work Phone: [phone])303-[address] [place], [place] [address]Byhlvsmdor59-41-7619 14:06-0400Body mass index (BMI) [Ratio]34.99 kg/q7Sicmc Law DO Work Phone: 1(360)540-[address] [place], [place] [address]Zfkzjzjjjx74-74-4184 14:06-0400Body .34 kgCorey Law DO Work Phone: [phone])595-[address] [place], [place] [address]Jterigldns06-12-9729 14:06-0400Diastolic blood forzkvoj10 mm[Hg]Mukul Law DO Work Phone: [phone])737-[address] [place], [place] [address]Fjfpucnzdw60-78-1109 14:06-0400Systolic blood axfwymko356 mm[Hg]Mukul Law DO Work Phone: [phone])044-[address] [place], [place] [address]Rwunmseefb86-81-1406 16:41-0400Body mass index (BMI) [Ratio]34.19 kg/x7Qoecv Law DO Work Phone: [phone])316-[address] [place], [place] [address]Yhqzchfqrl96-63-8918 16:41-0400Body ftzwky66.07 kgCorey Law DO Work Phone: [phone])950-[address] [place], [place] [address]Giwgyjxxnc21-00-7524 16:41-0400Diastolic blood ftmuayhs70 mm[Hg]Mukul Law DO Work Phone: [facility] CenterKjmqjuumam16-51-4225 16:41-0400Systolic blood kulfovpc669 mm[Hg]Mukul Law DO Work Phone: [phone] [place], [place] [address]Zhultgpwhz02-22-9700 16:15-0400Body mass index (BMI) [Ratio]34.22 kg/v9Azcvj Law DO Work Phone: [phone])551-[address] [place], [place] [address]Tllmzqvoje91-96-9950 16:15-0400Body sytbdz58.16 kgCorey Law DO Work Phone: [phone]05-28-2025 16:15-0400Diastolic blood mjgaofyb12 mm[Hg]Mukul Law DO Work Phone: [phone])608-[address] [place], [place] [address]Qmkyymnhpi61-32-3208 16:15-0400Systolic blood fdyinmjb543 mm[Hg]Mukul Law DO Work Phone: [phone])008-[address] [place], [place] [address]Hgsptvkang54-41-2191 15:15-0400Body mass index (BMI) [Ratio]33.57 kg/m2[facility]04-24-2025 15:15-0400Body ytartk49.35 [facility]04[facility]-2025 15:15-0400Diastolic blood arhdowak90 mm[Hg][facility]04-24-2025 15:15-0400Systolic blood ehnllman247 mm[Hg][facility]12-23-2024 16:25-0500Body mass index (BMI) [Ratio]32.93 kg/p6Nszvo Law DO Work Phone: 1(977)740-[address] [place], [place] [address]Wsicudejwg40-88-7837 16:25-0500Body .53 kgCorey Law DO Work Phone: [phone] [place], [place] 2122902-08-2023 03:06-0500Body xpwovu16.8024 kgDR MUKULVicki YOO .[facility] HospitalComment on above:Performed By: #### AFPMAT #### [facility] [address] [place] [address] Dr. Yilan Springer Encounters Encounter DateEncounter TypeCare ProviderFacilityStart: 05-21-2025 End: 89-03-4060Hlcryagmg Result EncounterCorey Law DO Work Phone: NOGO External Department UnsolicitedStart: 05-21-2025 End: 78-27-1577Ncxssfpky Result EncounterCorey Law DO Work Phone: noms External Department UnsolicitedStart: 05-14-2025 End: 94-55-9234wtmmyiqclpZDIZP FAZIONot AvailableStart: 05-14-2025 End: 60-78-5504Fkyqvnqd flow sheetCorey Law DO Work Phone: NODW [facility]BGYNComment on above:Third trimester ([facility]); 34 weeks gestation of ([facility]); Insulin controlled gestational diabetes mellitus (GDM) during , antepartum ([facility]); Gestational diabetes mellitus (GDM), antepartum, gestational diabetes method of control unspecified([facility])Start: 05-14-2025 End: 21-11-8994Kqrehw flowsheetCorey Law DO Work Phone: NOMS [facility]BGYNStart: 05-14-2025 End: 22-76-5933Symodc flowsheetCorey Law DO Work Phone: NOBX [facility]BGYNStart: 04-30-2025 End: 75-77-0457hhcgsotydhRSVAVSGD EBERLYNot AvailableStart: 04-30-2025 End: 38-42-1257Ljmmnmwo flow sheetKristina Guillermo [employer]OFESSION[employer] Work Phone: NOKC [facility] OBGYNComment on above:Third trimester ([facility]); 32 weeks gestation of ([facility])Start: 04-30-2025 End: 33-98-2733Zybfcv flowsheetCeasar Li [employer] Work Phone: NOWJ [facility]i OBGYNStart: 04-30-2025 End: 89-25-9780Zsdzvr flowsheetKristina Guillermo [employer]ESSION[employer] Work Phone: NOUJ [facility]i OBGYNStart: 04-30-2025 End: 46-60-8202Fcytnisbb Result EncounterMukul Foy DO Work Phone: noms External Department UnsolicitedStart: 04-14-2025 End: 80-48-2473tforafzsduQJL RAMHORTENCIANot AvailableStart: 04-14-2025 End: 07-86-0223Idfjavoh flow sheetRegina RUIZ Work Phone: noms [facility] OBGYNComment on above:Third trimester ([facility]); 30 weeks gestation of ([facility])Start: 04-14-2025 End: 48-40-3463Kmvruy Darek RUIZ Work Phone: NOMS [facility]BGYNStart: 04-14-2025 End: 91-51-4594Mphqfe Darek RUIZ Work Phone: noms [facility]BGYNStart: 04-05-2025 End: 03-62-0071Dfeltcbdg Result EncounterAmy Oralia RUIZ Work Phone: noms External Department UnsolicitedStart: 04-05-2025 End: 17-71-1060Mnknwiczb Result EncounterRegina Oralia RUIZ Work Phone: noms External Department UnsolicitedStart: 04-03-2025 End: 40-97-2976ezrnvxonueLKL RAMEYNot AvailableStart: 04-03-2025 End: 40-54-1355Vmfetfwh flow Chuy RUIZ Work Phone: NOMS Heri OBGYNComment on above:28 weeks gestation of ([facility]); Third trimester ([facility]); Dizziness; Gestational diabetes mellitus (GDM), antepartum, gestational diabetes method of control unspecified([facility]); History of miscarriage; Anemia, unspecified type; UTI symptomsStart: 04-03-2025 End: 97-21-9089Tygemx Darek RUIZ Work Phone: NOMS [facility] OBGYNStart: 04-03-2025 End: 26-75-4954Zfkpqy flowsheetAmy Oralia PA Work Phone: NOMS [facility] OBGYNStart: 03-12-2025 End: 24-95-0846gwkdmshkquARKHX FAZIONot AvailableStart: 03-12-2025 End: 99-46-8844Ruvqsfrk flow sheetCorey Law DO Work Phone: NOMS [place] OBGYNComment on above:25 weeks gestation of ([facility]); Second trimester ([facility]); Gastroesophageal reflux disease without esophagitisStart: 03-12-2025 End: 09-94-8562Eqbfxy flowsheetCorey Law DO Work Phone: [facility] OBGYNStart: 03-12-2025 End: 82-26-6258Uluurr flowsheetCorey Law DO Work Phone: N[facility] [place] OBGYNStart: 02-26-2025 End: 80-60-5168pswnlckatpVSBEV FAZIONot AvailableStart: 02-26-2025 End: 88-96-6094Trpilsyd flow sheetCorey Law DO Work Phone: NOMS [place] OBGYNComment on above:23 weeks gestation of ([facility]); Elevated blood sugar level; Gastroesophageal reflux disease without esophagitisStart: 02-26-2025 End: 71-56-4134Lgymzb flowsheetCorey Law DO Work Phone: N[facility] [place] OBGYNStart: 02-26-2025 End: 75-03-4916Dckesg flowsheetCorey Law DO Work Phone: NOMS [place] OBGYNStart: 02-11-2025 End: 30-91-9857Bdfvlkdg flow sheetCorey Law DO Work Phone: NOMS BCP OBComment on above:Second trimester ([facility]); 20 weeks gestation of ([facility])Start: 02-11-2025 End: 06-54-3270mlknjhbepjYOIZM FAZIONot AvailableStart: 01-15-2025 End: 85-95-9767drfybnkpibPKGXC FAZIONot AvailableStart: 01-15-2025 End: 61-20-0101Jxfondno flow sheetCorey Law DO Work Phone: noms [facility] OBComment on above:Second trimester ([facility]); 17 weeks gestation of ([facility]); Vaginal discharge; STD exposure; Screening, , for anatomic survey ([facility]); Gastroesophageal reflux in ([facility]); Gestational diabetes mellitus (GDM), antepartum, gestational diabetes method of control unspecified([facility])Start: 01-15-2025 End: 83-75-8664Rwmmai flowsheetCorey Law DO Work Phone: noms BCP OBStart: 01-15-2025 End: 06-17-4940Yljzea flowsheetCorey Law DO Work Phone: noms BCP OBStart: 01-15-2025 End: 62-65-0638Oauzqfge Result EncounterAmy Oralia RUZI Work Phone: noms External Department UnsolicitedStart: 01-07-2025 End: 55-73-8699jeasjcjxulIVRAQGHallie Lamas [facility] HospitalStart: 01-07-2025 End: 55-02-1968Mzcwvbkryu hospital visit by Kayden Steele CNP Work Phone: [facility] LABStart: 12-23-2024 End: 12-14-3649Qfoyqbnuu Result EncounterCorey Law DO Work Phone: noms External Department UnsolicitedStart: 12-23-2024 End: 50-00-9128Bwwbylbmu Result EncounterCorey Law DO Work Phone: noms External Department UnsolicitedStart: 12-20-2024 End: 73-34-6936rczazbxpblABVFEIHallie Lamas [facility] HospitalStart: 12-20-2024 End: 13-57-8008Pobwpoyjuz hospital visit by [facility] UltrasoundComment on above:Subchorionic hematoma, antepartum, first trimester, not applicable or unspecified fetusStart: 12-18-2024 End: 45-99-9054prtbsjdrgnMHVDQ FAZIONot AvailableStart: 12-18-2024 End: 75-92-5666Zflqwvuw flow sheetCorey Law DO Work Phone: noms BCP OBComment on above:Second trimester ; 12 weeks gestation of ; Subchorionic hematoma in first trimester, single or unspecified fetus; Diabetes mellitus screeningStart: 12-18-2024 End: 62-91-0365Nfejrg flowsheetCorey Law DO Work Phone: noms BCP OBStart: 12-18-2024 End: 49-20-2907Vhdzyn flowsheetCorey Law DO Work Phone: noms BCP OBStart: 11-14-2024 End: 11-19-3560Sddgtr outpatient visit 5 minutesNoms Bcp Ob Law NurseNOMS BCP OBComment on above:GA: 1b2ePxbvl: 11-14-2024 End: 99-87-9727rfqvbqbnfhEHJCF FAZIONot AvailableStart: 07-15-2024 End: 32-72-6719Lmdjdyk encounter procedureCorey Law DO Work Phone: noms HealthcareStart: 07-15-2024 End: 64-35-7481Yzavatlj preventive med est patient 18-39 yrsCorey Law DO Work Phone: noms BCP OBComment on above:Well woman exam with routine gynecological examStart: 07-15-2024 End: 17-47-3765fygziudomzBJBPX FAZIONot AvailableStart: 07-15-2024 End: 96-85-9941Zcqgxihtf Result EncounterCorey Law DO Work Phone: noms External Department UnsolicitedStart: 07-15-2024 End: 21-69-5967Jirinqbog Result EncounterCorey Law DO Work Phone: noms External Department UnsolicitedStart: 05-20-2024 End: 43-79-4903qhllkjooaoBSWUSRShanda Nath HospitalStart: 05-20-2024 End: 10-92-1539Ddmcxqwhyv hospital visit by Kayden Steele CNP Work Phone: mthz LaboratoryComment on above:Elevated liver enzymes; Mixed hyperlipidemiaStart: 03-06-2024 End: 93-05-8831xbtdzllxjcOQDIDPHallie Lamas [facility] HospitalStart: 02-16-2024 End: 54-94-3739hwdvxivcsgQAJKHKHallie Lamas [facility] Hospitaltart: 08-06-2023 End: 34-49-6787yscxegdcznHiqofmus:[facility] Hospitaltart: 07-11-2023 End: 70-87-6884fzkffdyqlkPBHQ [facility] Hospitaltart: 03-20-2023 End: 83-70-5832umrbxymxgpYAWNC [facility] Centertart: 12-17-2022 End: 00-77-5627pjygldrzmqSQ MUKUL LAW .Facility:T2Zjfzj: 12-12-2022 End: 46-34-2205zyxnatyhfoJI KYLIE SEYMOUR .Facility:W5Tzuwl: 12-10-2022 End: 59-79-2047xhctpskqluYL MUKUL LAW .Facility:Z2Ywdhp: 10-31-2022 End: 09-47-9675zqhvmqccgiZR MUKUL LAW .Facility:G8Zfjdw: 10-22-2022 End: 98-45-5971egygaozsgrZMQ RAMEY .Facility:W1Hykxi: 10-15-2022 End: 28-39-9433jdkosqjvrjYO MUKUL LAW .Facility:B2Hoehi: 09-12-2022 End: 99-19-1052ubgvzqpkqzTK MUKUL LAW .Facility:V3Yzltq: 09-10-2022 End: 98-40-2650pwbwbezhypPC MUKUL LAW .Facility:S8Ejeyz: 08-29-2022 End: 39-71-4576qbpwkvrjuhGQ MUKUL LAW .Facility:V1Usqwb: 08-01-2022 End: 21-73-9895Kmpuotjfmw hospital visit by ORGANGA LaboratoryStart: 07-04-2022 End: 89-93-8527erjfyouwcaJF MUKUL LAW .Facility:J8Xdqfr: 06-23-2022 End: 75-89-0464bszyptoljvZT YELENA V WESTFacility:J1Jlxwe: 06-09-2022 End: 77-78-1426ycggqjorvuCQ MUKUL LAW .Facility:D2Ujtvk: 06-02-2022 End: 09-59-1243Rramtqlovj hospital visit by Kayden Steele CNP Work Phone: mthz LaboratoryStart: 04-18-2022 End: 15-45-7061puxukpolvrEB MUKUL LAW .Facility:T2Tbrxi: 09-23-2021 End: 53-88-0491hoktphnhpvFVUNR [facility] HospitalStart: 09-08-2021 End: 10-40-4255cpgadpqenbFKPSA R FAZIORiverside Gnosticism HospitalStart: 08-25-2021 End: 89-51-4060spxuixcipoNFDJH R FAZIORiverside Gnosticism HospitalStart: 08-19-2021 End: 36-50-7872ecaxffhgtbRWWRY R FAZIORiverside Gnosticism HospitalStart: 08-10-2021 End: 20-86-2567Zblljntuma hospital visit by Kayden Steele CNP Work Phone: mthz LaboratoryComment on above:AmenorrheaStart: 11-25-2020 End: 62-43-4532Hlgeqbxalf hospital visit by [facility] RadiologyComment on above:Frequent UTIStart: 05-04-2020 End: 21-21-3655Bjbjqjmgoa hospital visit by Kayden Chapman LaboratoryComment on above:Encounter for screening for HIV; Other fatigue; Wellness examinationStart: 03-03-2020 End: 53-24-4524Iwprjxslqm hospital visit by Brayden Dickinson LaboratoryComment on above:Screening for cervical cancer; Encounter for annual routine gynecological examination Procedures DateProcedureProcedure DetailPerforming ClinicianStart: 67-62-0113BR OB BPP W NON-STRESSCorey Law DO Work Phone: Start: 42-69-6358Oyaqx dip stick/tablet rgnt non-auto w/o micrscpCorey Law DO Work Phone: Start: 98-09-3437WF OB BPP W NON-STRESSCorey Law DO Work Phone: Start: 94-99-9334Ttnud dip stick/tablet rgnt non-auto w/o micrscpKristina Guillermo CHRISTOPHER Work Phone: Start: 18-64-6309Rxvbw dip stick/tablet rgnt non-auto w/o micrscpAmy Oralia RUIZ Work Phone: Start: 30-15-5276VE OB GROWTHRegina RUIZ Work Phone: Start: 99-31-3275RWP CBC WITH AUTO DIFFRegina RUIZ Work Phone: Start: 98-69-3796Hmjsj dip stick/tablet rgnt non-auto w/o micrscpAaric RUIZ Work Phone: Start: 08-43-4981Hakas dip stick/tablet rgnt non-auto w/o micrscpCorey Law DO Work Phone: Start: 70-34-3876Phzte dip stick/tablet rgnt non-auto w/o micrscpCorey Law DO Work Phone: Start: 14-80-3859Rbgio dip stick/tablet rgnt non-auto w/o micrscpCorey Law DO Work Phone: Start: 26-62-6650VAPTITNFB VAGINITIS (HTRX)Regina RUIZ Work Phone: Start: 78-21-4455Ngwsp count complete automatedAmy L Oralia CAMPOS Work Phone: Start: 72-60-0302FJ OB LESS THAN 14 WEEKS SINGLE OR FIRST GESTATIONCorey Law DO Work Phone: Start: 54-80-1570Ednsh dip stick/tablet rgnt non-auto w/o micrscpCorey Law DO Work Phone: Start: 35-62-9197Vnadc dip stick/tablet rgnt non-auto w/o micrscpCorey Law DO Work Phone: Start: 45-81-6154AXA,APTIMA HPV,AGE GDLNCorey Law DO Work Phone: Start: 82-64-0198Bghafhaqvfi observation [Identifier] in Cervix by Cyto Leonora Rodriguez DIRECTOR OF STRATEGIC MARKETING - [facility] Work Phone: Start: 54-46-1197Akvhi Nancy Rodriguez DIRECTOR OF STRATEGIC MARKETING - [facility] Work Phone: Start: 41-18-3652Klmsdnppzqutn metabolic Nancy Rodriguez DIRECTOR OF STRATEGIC MARKETING - [facility] Work Phone: Start: 59-56-5470Suahajdtelw observation [Identifier] in Cervix by Cyto stainNvgoran RoomStart: 27-84-4920Joudgaxt Navid Barroso DIRECTOR OF STRATEGIC MARKETING - [facility] Work Phone: Start: 77-56-2581Wkaeciqmnjda chorionic quantitative Mukul Bill Foy MD Work Phone: Start: 45-39-5639Nnnawiumakjn chorionic quantitative Berto Live DIRECTOR OF STRATEGIC MARKETING - [facility] Work Phone: Start: 38-40-6448Kw retroperitoneal real time w/image completeBethrupinder Ricks DIRECTOR OF STRATEGIC MARKETING - [facility] Work Phone: Start: 01-29-4175Dzyghqxl hiv-1&hiv-2 single result Ynes Rodriguez Work Phone: Start: 80-96-8406Zoobo of thyroid stimulating hormone tshYnes Rodriguez Work Phone: Start: 17-63-9133Bpbjz metabolic panel calcium total Ynes Rodriguez Work Phone: Start: 77-33-6502Tvptr count complete automatedYnes Rodriguez Work Phone: Start: 68-66-0775Rkrffunxocc observation [Identifier] in Cervix by Cyto stainYnes Rodriguez DIRECTOR OF STRATEGIC MARKETING - INSERTING MACHINE OPERATOR Work Phone: Plan of Treatment DateCare ActivityDetailAuthorStart: 05-99-8292Dknpymffk for malignant neoplasm of cervixPap smearBon [facility] TroyStart: 23-94-9382Clengohpp for malignant neoplasm of cervixPap smearBon [facility] TroyStart: 08-07-2025 Depression ScreenDepression ScreenSentara Virginia Beach General HospitalStart: 07-28-2025 End: 21-76-6307Nwfgatm encounter procedureNOMS BCP OBStart: 05-28-2025 End: 33-02-3207Hsyrnai encounter ptamlmbbw12/05/2025 2:30 PM EST Routine NOMS Heri SANTO [address] [place], [id number] Regina Barton PA [address] [place] [address] NOMS Heri OBGYNStart: 05-28-2025 End: 40-46-2777Tknjpjmqzlti / ancillary services firpqkxczm73/05/2025 2:00 PM EST Ancillary Procedure [facility] Heri SANTO [address] [place] [address] NOMS Heri OBGYNStart: 35-11-9207Okkhu panelLipids [facility] HospitalStart: 05-14-2025 End: 24-94-0283Xehgsyn encounter wewcfplhx43/22/2025 2:50 PM EDT Routine [facility] [address] [place], [id number] Mukul Foy DO [address] [place], [place] [id number] NOMS Heri OBGYNStart: 05-14-2025 End: 05-75-5818OX for pregnancyUS OB follow up transabdominal approach Imaging Routine Insulin controlled gestational diabetes mellitus (GDM) during , antepartum ([facility]) Expected: 05/14/2025, Expires: 09/14/2025[facility] Work Phone: comment on above:Expected: 05/14/2025, Expires: 09/14/2025Start: 05-14-2025 End: 48-65-6435Ywcrzci encounter dvpofwiky35/22/2025 11:40 AM EDT Office Visit [facility] Primary Care [address] Melissa Hendricks [facility] [address] Ynes Rodriguez, DIRECTOR OF STRATEGIC MARKETING - INSERTING MACHINE OPERATOR [address] [place] [address] 6 month f/[facility] CareComment on above:6 month f/uStart: 04-30-2025 End: 09-01-9178Jenhjwm encounter yfqtsivti64/08/2025 3:00 PM EDT Routine [facility] [address] [place], [id number] Ceasar Li, ASHWIN [address] [place] [address] NOMS Heri OBGYNStart: 04-14-2025 End: 13-54-3873Imbhdrz encounter hmlkxozvx03/22/2025 3:20 PM EDT Routine [facility] [address] [place], [id number] Regina Barton PA [address] [place] [address] NOMRenzo Heri OBGYNStart: 04-03-2025 End: 95-24-2213Vrwrcvx encounter ykfnlsvpp89/11/2025 3:30 PM EDT Routine NOMRenzo [place] OBCIARANN [address] [place], [id number] Regina Barton PA [address] [place] [address] N[facility]BGYNStart: 04-03-2025 End: 33-82-7673BZA W Auto Differential panel - BloodCBC and differential Lab Routine Dizziness Anemia, unspecified type Expected: 04/03/2025 (Approximate), Expires: 04/03/2026NONJ HealthcareComment on above:Expected: 04/03/2025 (Approximate), Expires: 04/03/2026Start: 04-03-2025 End: 91-14-9929TS biophysical profile w non stress testUS biophysical profile w non stress test Imaging Routine 28 weeks gestation of ([facility]) Third trimester ([facility]) Gestational diabetes mellitus (GDM), antepartum, gestational diabetes method of control unspecified ([facility]) History of miscarriage Expected: 04/03/2025 (Approximate), Expires: 10/01/2025NONJ HealthcareComment on above:Expected: 04/03/2025 (Approximate), Expires: 10/01/2025Start: 04-03-2025 End: 39-68-9846NP for pregnancyUS OB follow up transabdominal approach Imaging Routine 28 weeks gestation of ([facility]) Third trimester ([facility]) Gestational diabetes mellitus (GDM), antepartum, gestational diabetes method of control unspecified ([facility]) History of miscarriage Expected: 04/03/2025, Expires: 08/03/2025[facility] Work Phone: comment on above:Expected: 04/03/2025, Expires: 08/03/2025Start: 86-70-1559CELGI-19 Vaccine ( season)COVID-19 Vaccine ( season)NOMS HealthcareStart: 00-07-5442Gxerwztzt vaccinationNOMS HealthcareStart: 82-87-5795Omuuvqnkv vaccinationFlu vaccine (Season Ended)[facility]erta HealthStart: 02-11-2025 End: 83-22-9359Yqwpgfc encounter lrwaoiqby79/22/2025 2:10 PM EDT Routine [facility] [address] [facility] [address] [place] [address] Mukul Foy, DO [address] [place] [address] NOMS BCP OBStart: 02-11-2025 End: 86-95-2095Bexerkpozkgx / ancillary services kaimfbijdg95/22/2025 1:00 PM EDT Ancillary Procedure [facility] [place] [address] [place] [phone] [phone] BCP OBStart: 01-15-2025 End: 56-81-8823Catknyl encounter kqctdlzow08/25/2025 3:50 PM EDT Routine [facility] [address] [facility] [place] [phone] Mukul Foy, DO [address] [place] [address] NOMS BCP OBStart: 01-15-2025 End: 82-72-0669Amqgj fetoprotein, maternalAlpha fetoprotein, maternal Lab Routine Second trimester ([facility]) 17 weeks gestation of ([facility]) Expected: 01/15/2025 (Approximate), Expires: 07/17/2025[facility] Comment on above:Expected: 01/15/2025 (Approximate), Expires: 07/17/2025Start: 01-15-2025 End: 15-23-1258PV for pregnancyUS OB 14+ weeks anatomy scan Imaging Routine Screening, , for anatomic survey ([facility]) Expected: 01/15/2025, Expires: 04/17/2025NONJ HealthcareComment on above:Expected: 01/15/2025, Expires: 04/17/2025Start: 12-18-2024 End: 89-56-8201Utiljuk encounter ycgrwmzhv81/28/2025 3:40 PM EDT Routine [facility] OB [address] [place] [address] Mukul Foy, DO [address] [place] [address] NOMS BCP OBStart: 12-18-2024 End: 81-24-0096GMB panel - Blood by Automated countCBC Lab Routine Diabetes mellitus screening Expected: 12/18/2024 (Approximate), Expires: 12/18/2025[facility] Work Phone: comment on above:Expected: 12/18/2024 (Approximate), Expires: 12/18/2025Start: 12-18-2024 End: 85-77-3958Qjnyoseakno of glucose 1 hour after glucose challenge for glucose tolerance testGlucose tolerance, 1 hour Lab Routine Diabetes mellitus screening Expected: 12/18/2024 (Approximate), Expires: 12/18/2025[facility]:Expected: 12/18/2024 (Approximate), Expires: 12/18/2025Start: 12-18-2024 End: 15-36-8468JM Pelvis transvaginalUS OB transvaginal Imaging Routine Subchorionic hematoma in first trimester, single or unspecified fetus Expected: 12/18/2024, Expires: 03/20/2025[facility] Work Phone: comment on above:Expected: 12/18/2024, Expires: 03/20/2025Start: 11-14-2024 End: 63-02-2720CUC/RhABO/Rh Lab Routine Missed menses , unspecified gestational age Expected: 11/14/2024 (Approximate), Expires: 11/14/2025[facility]:Expected: 11/14/2024 (Approximate), Expires: 11/14/2025Start: 11-14-2024 End: 08-02-5078Kkqwc type and Indirect antibody screen panel - BloodType and screen Lab Routine Missed menses , unspecified gestational age Expected: 11/14/2024 (Approximate), Expires: 11/14/2025[facility]:Expected: 11/14/2024 (Approximate), Expires: 11/14/2025Start: 11-14-2024 End: 70-39-5113Aryri of abuse panel - Urine by Screen methodRapid drug screen, urine Lab Routine , unspecified gestational age Encounter for supervision of normal first in first trimester Expected: 11/14/2024 (Approximate), Expires: 11/14/2025[facility]:Expected: 11/14/2024 (Approximate), Expires: 11/14/2025Start: 11-06-2024 End: 82-16-5887WX Pelvis transvaginalUS OB transvaginal Imaging Routine Missed menses Expected: 11/06/2024, Expires: 02/05/2025[facility] Work Phone: comment on above:Expected: 11/06/2024, Expires: 02/05/2025Start: 10-16-2024 End: 64-53-3085Pvmdgbe encounter yftwttzkf03/26/2025 1:40 PM EDT Office Visit [address] [place] [address] Ynes Rodriguez, DIRECTOR OF STRATEGIC MARKETING - INSERTING MACHINE OPERATOR [address] [place] [address] [address] [place] [address] [facility] Primary CareComment on above:WellnessStart: 98-50-9903Ajuddvxxft ScreenDepression ScreenBon Secours [facility] North HospitalStart: 06-04-2024 End: 96-02-2977Awdxpyo encounter lfoiajsza51/12/2024 11:45 AM EST Office Visit [address] [place] [address] Jose Cruz Raza MD [address] [facility] [place] [address] wt [facility] Primary CareComment on above:wt managementStart: 05-22-2024 End: 70-85-5977Edxphgq encounter jzaojauug65/30/2024 11:00 AM EDT Office Visit [facility] Primary Care [address] [place] [address] [address] [place] [address] Ynes Rodriguez, DIRECTOR OF STRATEGIC MARKETING - INSERTING MACHINE OPERATOR [address] [facility] [address] [place] [address] LFT + HLD f/u(RS 10/17/23 appt)[facility] Primary CareComment on above:LFT + HLD f/u(RS 10/17/23 appt)Start: 20-56-6551TWJND-19 Vaccine ( season)COVID-19 Vaccine ( season)[facility] HospitalStart: 61-52-7366ORGIL-19 Vaccine ( season)COVID-19 Vaccine ( season)[facility] HospitalStart: 48-24-6496Qdkgporrd vaccinationInfluenza Vaccine (#1)[facility] CenterStart: 29-19-5392Gklnucngm vaccinationFlu vaccine (#1)[facility] HospitalStmount hermon: 93-25-8018Xeaotlgwg for malignant neoplasm of cervixBethesda North HospitalStart: 05-96-0336Xwqjoywupb ScreenDepression ScreenBON SELECT MEDICAL [facility] HOSPITALStmount hermon: 07-11-2022 End: 13-69-4471Msfozjt encounter gtgnjoubg64/19/2022 Office Visit Primary Care Ynes Rodriguez, DIRECTOR OF STRATEGIC MARKETING - INSERTING MACHINE OPERATOR [address] [facility] [address] [place] [address] [facility] Primary Care Start: 05-19-2022 End: 10-17-4205Ypwyuim encounter azujwooai75/27/2022 Office Visit Obstetrics and Gynecology Berto Live, DIRECTOR OF STRATEGIC MARKETING - CNM [address] [facility] [address] [place] [address] [facility]STETR[facility]: 03-18-2022 End: 20-68-1084Dlqcmgc encounter avsivhkhm02/26/2022 Office Visit Family Medicine Ynes Rodriguez, DIRECTOR OF STRATEGIC MARKETING - INSERTING MACHINE OPERATOR [address] [facility] [address] [place] [address] [facility]ILY MEDICINE [facility]: 38-91-5347Xcuahbmlm C screeningHepatitis C screenMer HealthComment on above:Postponed from 1998 (Patient Refused)Start: 03-15-4073Hnltcvbla vaccinationFlu vaccine (#1)[facility]ITALStart: 81-30-6339Tsjptopop for Chlamydia trachomatisBethesda North HospitalStart: 09-24-2021 Influenza vaccinationFlu vaccine (Season Ended)[facility] Work Phone: comment on above:Postponed from 03/24/2021 (Patient Refused)Start: 37-88-0698Xqlqhaibyb MonitoringDepression MonitoringBethesda North Hospital Start: 93-95-8495JDQES-19 Vaccine (3 - Booster for Pfizer series)COVID-19 Vaccine (3 - Booster for Pfizer series)[facility]: 00-53-4125VTjO/Tdap/Td vaccine (7 - Td or Tdap)DTaP/Tdap/Td vaccine (7 - Td or Tdap)[facility]: 77-53-5688QPkH/Tdap/Td vaccine (7 - Td)DTaP/Tdap/Td vaccine (7 - Td)[place], KYStmount hermon: 87-16-5704Mifrhvzlc vaccinationFlu vaccine (#1)[facility] Start: 95-88-6284Lwgmwncpz for Chlamydia trachomatisChlamydia screenKing's Daughters Medical Center Ohioart: 41-75-9628LSJTG-19 Vaccine (3 - Booster for Pfizer series) COVID-19 Vaccine (3 - Booster for Pfizer series)[facility]ITALStart: 02-09-2021 End: 53-66-5279Zfmrzgt encounter gwforskti92/20/2021 Office Visit Family Medicine Ynes Rodriguez, DIRECTOR OF STRATEGIC MARKETING - INSERTING MACHINE OPERATOR [address] [facility] [address] [place] [address] [phone] [facility]: 11-30-2020 End: 90-57-4856Ldyswpg encounter ucjidzaim78/10/2021 Office Visit Urology Chris Moe MD [address] [facility], [address] [place], [place] [phone] [facility]: 05-28-2020 End: 27-53-3572Kcghfmbesvdu01/05/2020 Telemedicine Family Medicine Ynes Rodriguez, DIRECTOR OF STRATEGIC MARKETING - INSERTING MACHINE OPERATOR [address] [facility] [facility] [address] [place] [address] [phone] [facility] Start: 77-62-6552Zopjhuvcc vaccinationFlu vaccine (#1)[facility]: 71-73-8307Ecapjtkwb for Chlamydia trachomatisChlamydia [place], [place]Stmount hermon: 36-53-9377Xsamcsxkr for malignant neoplasm of cervixCervical cancer [facility]art: 13-11-3588Vmullgzvm B Vaccines (1 of 3 - 19+ 3- dose series)Hepatitis B Vaccines (1 of 3 - 19+ 3-dose series)[facility] Start: 28-70-4466Niskxxtif C screeningHepatitis C screenBON [facility] Start: 73-59-6353JVZEQ-19 Vaccine (1)COVID-19 Vaccine (1)[facility] Work Phone: start: 75-38-1605PSF screeningHIV [place], KYStmount hermon: 40-09-6595JIK Vaccines (1 - 3-dose series)HPV Vaccines (1 - 3-dose series)[facility] HealthcareStart: 48-04-3306Hapmqly of varicella vaccinationVaricella Vaccines (1 of 2 - 13+ 2-dose series)[facility] HealthcareStart: 2005 DTaP/Tdap/Td Vaccines (1 - Tdap)DTaP/Tdap/Td Vaccines (1 - Tdap)[facility] Healthcare Start: 84-77-0362MII Vaccines (1 of 1 - Standard series)MMR Vaccines (1 of 1 - Standard series)[facility] HealthcareStart: 47-75-1771Ksswmjfkj C screeningHepatitis C screenMercy Health Work Phone: bacteria identified in Urine by CultureUrine culture Microbiology Routine Missed menses Ordered: 11/14/2024[facility] HealthcareComment on above:Ordered: 5Bacteria identified in Urine by CultureUrine culture Microbiology Routine UTI symptoms Ordered: 04/03/2025[facility] HealthcareComment on above:Ordered: 04/03/2025 End: 03-03-2020C.trachomatis N.gonorrhoeae DNA, Thin PrepC.trachomatis N.gonorrhoeae DNA, Thin Prep Microbiology Routine Encounter for annual routine gynecological examination 1 Occurrences starting 03/03/2020 until 03/03/2020 [facility], KYComment on above:1 Occurrences starting 03/03/2020 until 03/03/2020C.trachomatis N.gonorrhoeae DNA, Thin PrepC.trachomatis N.gonorrhoeae DNA, Thin Prep Microbiology Routine Encounter for annual routine gynecological examination 03/03/2020 5:08 PM [facility], KYCBC W Auto Differential panel - BloodCBC and differential Lab Routine Missed menses , unspecified gestational age Ordered: 11/14/2024[facility] HealthcareComment on above: Ordered: 5CHLAMYDIA TRACHOMATIS (GENITO/STI)CHLAMYDIA TRACHOMATIS (GENITO/STI) Lab Routine STD exposure Ordered: 01/15/2025[facility] HealthcareComment on above:Ordered: 5Cytology Cervical or vaginal smear or scraping study Pap Smear Pathology and Cytology Routine Well woman exam with routine gynecological exam Ordered: 07/15/2024[facility] Healthcare Work Phone: comment on above:Ordered: 07/15/2024 End: 20-78-2914Uyqtvfxyrbzbn procedure, preparation of smear, genital sourcePAP SMEAR Lab Routine Screening for cervical cancer 1 Occurrences starting 03/03/2020 until 03/03/2020[facility], [place]Comment on above:1 Occurrences starting 03/03/2020 until 03/03/2020Hemoglobin A1c/Hemoglobin.total in Blood Hemoglobin A1c Lab Routine Missed menses , unspecified gestational age Ordered: 11/14/2024[facility] HealthcareComment on above:Ordered: 11/14/2024Hepatitis B virus surface Ag [Presence] in Serum or Plasma by ImmunoassayHepatitis B surface antigen Lab Routine Missed menses , unspecified gestational age Ordered: 11/14/2024[facility] HealthcareComment on above:Ordered: 11/14/2024Hepatitis C virus Ab [Presence] in Serum or Plasma by ImmunoassayHepatitis C antibody Lab Routine Missed menses , unspecified gestational age Ordered: 11/14[facility] HealthcareComment on above:Ordered: 11/14/2024HIV-1/HIV-2 antigen/antibody combination immunoassayHIV-1 and HIV-2 antibodies Lab Routine Missed menses , unspecified gestational age Ordered: 11/14/2024[facility] HealthcareComment on above:Ordered: 11/14/2024Neisseria gonorrhoeae DNA [Presence] in Unspecified specimen by ANISA with probe detectionNeisseria gonorrhea DNA probe, direct Lab Routine STD exposure Ordered: 01/15/2025[facility] HealthcareComment on above:Ordered: 01/15/2025Reagin Ab [Presence] in Serum by RPRRPR Lab Routine Missed menses , unspecified gestational age Ordered: 11/14/2024[facility] HealthcareComment on above:Ordered: 11/14/2024Rubella antibody, IgGRubella antibody, IgG Lab Routine Missed menses , unspecified gestational age Ordered: 11/14/2024[facility] HealthcareComment on above:Ordered: 11/14/2024SURESWAB(R) ADVANCED VAGINITIS PLUS, TMASURESWAB(R) ADVANCED VAGINITIS PLUS, TMA Pathology and Cytology Routine Vaginal discharge Ordered: 01/15/2025 [facility] Healthcare Work Phone: comment on above:Ordered: 01/15/2025US Pelvis transvaginalUS OB transvaginal Imaging Routine Missed menses 11/14/2024 2:38 PM [facility] End: 22-94-7202Kb uterus 14 wk transabdl 07/[address] [facility] [employer] Work Phone: Comment on above:1 Occurrences starting 12/20/2024 until 12/20/2024 Immunizations Immunization DateImmunizationNotesCare YnqqostoBwreetew31-81-0215UQGWP-42, Pfizer Purple top, DILUTE for use, 12+ yrs, 30mcg/0.3mL doseHannah Rodriguez DIRECTOR OF STRATEGIC MARKETING - INSERTING MACHINE OPERATOR Work Phone: [facility] [place] Phone: [phone]-06, Pfizer Purple top, DILUTE for use, 12+ yrs, 30mcg/0.3mL doseHannah Rodriguez DIRECTOR OF STRATEGIC MARKETING - INSERTING MACHINE OPERATOR Work Phone: [facility] North HospitalSkzdhm99-47-5493xmcei papilloma virus vaccine, quadrivalentSuburban [facility] Hospital & [facility], UU22-25-1955vewyq papilloma virus vaccine, quadrivalentSuburban Community Hospital & [facility], MT52-68-5164dofnp papilloma virus vaccine, quadrivalentSuburban Community Hospital & [facility], [place] 34-61-4965pwmethahzwoml polysaccharide (groups A, C, Y and W-135) diphtheria toxoid conjugate vaccine (MCV4P)[facility], CZ69-94-3471 meningococcal ACWY vaccine, unspecified formulationSuburban Community Hospital & [facility], RY01-77-6818Kmmvdcrki A Ped/Adol (Vaqta)[facility], [place] 03-13-6444drrkhykdj A vaccine, pediatric/adolescent dosage, 2 dose schedule Ynes Rodriguez DIRECTOR OF STRATEGIC MARKETING - INSERTING MACHINE OPERATOR Work Phone: [facility] [employer] Work Phone: [phone] toxoid, reduced diphtheria toxoid, and acellular pertussis vaccine, adsorbedSuburban Community Hospital & [facility], [place] 94-01-1451Lbxzupagv A Ped/Adol (Vaqta)[facility], [place] 53-11-6876gwaepyteh A vaccine, pediatric/adolescent dosage, 2 dose schedule Ynes Rodriguez [facility] Work Phone: [facility] Work Phone: [phone]zseoz virus vaccineSuburban Community Hospital & [facility], OL49-16-5291fxsjndrxcgpwi polysaccharide (groups A, C, Y and W-135) diphtheria toxoid conjugate vaccine (MCV4P)[facility], [place] 73-12-3943sivkpimoxe, tetanus toxoids and acellular pertussis vaccineSuburban [facility] Hospital & [facility], KO65-15-5819gacnyxr, mumps and rubella virus vaccine [facility], HG64-37-5880jooexhgnib vaccine, inactivated [facility], VB73-78-8627fqmcedavlv, tetanus toxoids and acellular pertussis vaccineSub[facility], AN35-97-9199 haemophilus influenzae type b vaccine, PRP-T conjugateSub[facility] Community Hospital & [facility], QP68-85-9444reyqxhucci vaccine, inactivatedSuburban Community [facility], NL94-07-8105wsdynre, mumps and rubella virus vaccineSelect Medical [facility], [place], OL86-35-3423cszbqrfjw virus vaccineSuburban Community [facility] & [facility], TZ37-17-3850ukpqxrpep B vaccine, pediatric or pediatric/adolescent dosageSuburban Community Hospital & [facility], LJ60-43-5498wnsvawllwo, tetanus toxoids and acellular pertussis vaccineSub[facility], JT79-39-2603 haemophilus influenzae type b vaccine, PRP-T conjugateSub[facility], NF54-11-3915kbkarvbnwx, tetanus toxoids and acellular pertussis vaccineSub[facility] Community Hospital [facility], UD23-93-0226inbwvtiggvi influenzae type b vaccine, PRP-T conjugateSub[facility], LT34-41-1760 poliovirus vaccine, inactivatedSub[facility] Community [facility], HW27-22-5765 haemophilus influenzae type b vaccine, PRP-T conjugateSub[facility] Community Hospital [facility], ZT85-91-1747wrumqbvsaf vaccine, inactivatedSuburban Community Hospital [facility], GR48-06-1915bhagrwddpq, tetanus toxoids and acellular pertussis vaccineWVUMedicine Harrison Community Hospital03-18-1999hepatitis B vaccine, pediatric or pediatric/adolescent dosageSuburban Community Hospital [facility], BB59-01-8698 hepatitis B vaccine, pediatric or pediatric/adolescent dosageSelect Medical [facility], [place], [place] Payers DatePayer CategoryPayerPolicy [id number] SPECIALTY BILLING [facility] [id number] 2022-Present [address] [place] [address] [place] [address] [id number] Health InsuranceMEDICAL MUTUAL Member Subscriber Plan / Payer (Effective 2022-Present) Name: Vinny Downey Relation to Subscriber: Spouse Name: Nasreen Abhishek Linda Date of : 1996 Address: [address] [place] [address] Payer ID: Not on file Type: Not on file Address: [facility] [address] [place] [id number]btap [id number] 840.1.064466.3.5[id number] 09.08.830.1.612843.3.5[id number] 2.16.840.1.024607.3.57[id number] 2.16.840.1.681238.3.57[id number] 2.16.840.1.758302.3.57[id number] 2.16.840.1.709472.3.57[id number] 2.16.840.1.357881.3.579.[id number] 2.840.1.132414.3.579.2.14729-35-1374Qiasfgq9216022 2.840.1.422520.3.579.[id number] 2.840.1.616714.3.579.2.33251-85-5598Somvmsy7904385 2.840.1.508632.3.579.2.85752-49-1969Fryyjvp2214744 2.840.1.327219.3.579.2.54870-37-6173Iymxizq7363595 2.840.1.699375.3.579.2.99494-00-0111Pnnsmjz6310529 2.840.1.751761.3.579.2.56866-27-5223Rhsxlnu2402873 2.840.1.302284.3.579.2.05475-22-0051Yzxymym6982442 2.840.1.223855.3.579.2.42921-14-5937Ridtdfr5101009 2.16.840.1.535038.3.579.2.86935-73-1176Abdvaaq7938252 2.16840.1.082775.3.579.2.08982-18-8137Rbcmdxx48615291 2.16.840.1.553181.3.579.2.35979-99-8579Odkjyci33692630 2.16.840.1.419784.3.579.2.66135-11-9603Rmapanz18424142 2.16840.1.134686.3.579.2.28258-11-2868Pkwuitb81257166 2.840.1.657038.3.579.2.85830-47-5131Oolmixq66157610 2.0.1.257349.3.579.2.70110-48-5683Hfioach70505093 2.840.1.760918.3.57[id number] 2.0.1.377725.3.57[id number] 2.0.1.239879.3.579.2.892625-43-6818Ffuehnf41338644 2.0.1.757461.3.579.2.184104-46-7464Fsacrds65215074 2..1.623367.3.579.2.[id number] 2.0.1.075874.3.579.2.418866-40-8129Scrmfmr57442698 2.0.1.880678.3.57[id number] 2.840.1.376635.3.579.2.717441-20-9651Qhdinnu39797357 2.840.1.511386.3.579.2.574135-22-2890Gpsanvz2314212 2.16.840.1.502409.3.579.2.495558-19-1512Qglbtpj3133533 2.16.840.1.307025.3.579.2.956953-71-3605Ikeeamf0878026 2.16.840.1.757389.3.579.2.035320-48-3956Gxrgupx1829822 2.16.840.1.285397.3.579.2.139403-74-1224Fjqm-jwd68-10-0815PmvxudkYICOF7276434 1.2.840.525827.1.13.239.2.7.3.426182.17565-40-1656Mfmrrva16285000343260-13-4584 Ctuugbp682650495985Vjbtokb6546258 2.16.840.1.067696.3.579.2.593 Social History DateTypeDetailFacilityStart: 03-03-2020 End: 14-01-8382Qnriqtj smoking status NHISNever smokerGeorgetown [facility]al Hospital: 03-03-2020 End: 70-20-6856Gektshg use and exposureNever usedGeorgetown Behavioral Hospital: 03-03-2020 End: 31-25-7210Fjgpzsb intakeCurrent drinker of alcohol (finding)[facility]: 69-83-2043Jziazbw CommentsocialGeorgetown Behavioral Hospital: 96-27-8807Tkh Assigned At BirthNot on [facility]: 05-01-[facility] End: 52-78-4691Xnyntke SDOH Tdofruqej6CobznGeorgetown Behavioral Hospital: 05-01-2020 End: 60-04-7272Jjaohwv SDOH Food Qiuab2PaavqGeorgetown Behavioral Hospital: 05-01-2020 History SDOH Transport Uvt8CjtweRussian [place], KYExposure to SARS-CoV-2 (event)Not sureAshtabula General Hospital: 05-01-2024 End: 91-05-9575Qnxughxem beverage intakeEx-drinker (finding)Bon SecFormisimoSentara Martha Jefferson HospitalStart: 05-01-2024 End: 09-77-1983Ibdsthh of Social functionSentara Virginia Beach General HospitalStart: 05-01-2024 End: 13-89-3902Gpmxmrm use panelSentara Virginia Beach General HospitalStart: 34-97-8188Yah hard is it for you to pay for the very basics like food, housing, medical care, and heatingNot hard at allSentara Virginia Beach General Hospital(I/We) worried whether (my/our) food would run out before (I/we) got money to buy more.Never trueBon [facility] TroyStart: 63-07-4563Ayg assigned at birthFemaleBon [facility] TroyStart: 85-81-7682Ymsyrd identityIdentifies as female gender (finding)[facility] HospitalStart: 07-05-2023 End: 08-80-1694Kppujqsco beverage intakeLifetime non-drinker (finding)[facility] HealthcareStart: 55-23-9596CwotatutuCOYQ HealthcareHas the electric, gas, oil, or water company threatened to shut off services in your home in past 12MoNoBon [facility] TroyStart: 06-67-3908TfcLtdunx (finding)[facility] Medical Equipment Procedure CodeEquipment CodeEquipment Original TextEquipment IdentifierDatesUse as [id number]: 01-15-2025 End: 64-38-1389Tceljq 1 each under the skin [id number]: 04-07-2025 End: 07-16-2025 Goals DatePatient GoalDesired Activity/StatePersonal health goal Clinical Notes 03-20-2023 to 05-14-2025 Note Date & QaxhDmmyRgthozvl94-72-2005 History of Present illness Narrative* Criselda Aguirre [...] 23 weeks gestation of ([facility]) 02/26/2025 Elevated blood sugar level 02/26/2025 Resolved Ambulatory Problems Diagnosis Date Noted Missed period 01/13/2023 Past Medical History: Diagnosis Date GDM (gestational diabetes mellitus) ([facility]) HISTORY PAST MEDICAL HISTORY SOCIAL HISTORY Past Medical History: Diagnosis Date GDM (gestational diabetes mellitus) ([facility]) Social History Tobacco Use Smoking status: [...] nursing note reviewed. Exam conducted with a metal extrusion supervisor present. Vitals: Estimated body mass index is 37.47 kg/m as calculated from the following: Height as of 01/30/23: 5' 6 . Weight as of this encounter: 232 lb 1.9 oz. BP: 110/70 Patient's last menstrual period was 09/16/2024. Assessment/Plan ICD-10-CM 1. Third trimester ([facility]) Z34.93 2. 34 weeks gestation of ([facility]) Z3A.34 POCT urinalysis dipstick manually resulted Return [...] of: Mukul Foy DO documented in this encounterMetropolitan Saint Louis Psychiatric CenterYxpkeubojy59-55-0987 History of Present illness Narrative* Ceasar Li [...] 23 weeks gestation of ([facility]) 02/26/2025 Elevated blood sugar level 02/26/2025 Resolved Ambulatory Problems Diagnosis Date Noted Missed period 01/13/2023 Past Medical History: Diagnosis Date GDM (gestational diabetes mellitus) ([facility]) HISTORY PAST MEDICAL HISTORY SOCIAL HISTORY Past Medical History: Diagnosis Date GDM (gestational diabetes mellitus) ([facility]) Social History Tobacco Use Smoking status: [...] nursing note reviewed. Exam conducted with a metal extrusion supervisor present. Vitals: Estimated body mass index is 36.7 kg/m as calculated from the following: Height as of 01/30/23: 5' 6 . Weight as of this encounter: 227 lb 6.4 oz. BP: 110/70 Patient's last menstrual period was 09/16/2024. ASSESSMENT & PLAN ICD-10-CM 1. Third trimester ([facility]) Z34.93 2. 32 weeks gestation of ([facility]) Z3A.32 POCT urinalysis dipstick manually resulted [...] of: Ceasar Li NP documented in this encounterMetropolitan Saint Louis Psychiatric CenterYdjkmqartf44-77-5878 History of Present illness Narrative* JOSEPH Bowie [...] 23 weeks gestation of ([facility]) 02/26/2025 Elevated blood sugar level 02/26/2025 Resolved Ambulatory Problems Diagnosis Date Noted Missed period 01/13/2023 Past Medical History: Diagnosis Date GDM (gestational diabetes mellitus) ([facility]) HISTORY PAST MEDICAL HISTORY SOCIAL HISTORY Past Medical History: Diagnosis Date GDM (gestational diabetes mellitus) ([facility]) Social History Tobacco Use Smoking status: [...] ASSESSMENT & PLAN ICD-10-CM 1. Third trimester ([facility]) Z34.93 POCT urinalysis dipstick manually resulted 2. 30 weeks gestation of ([facility]) Z3A.30 Return OB: Patient presents today [...] behalf of: JOSEPH Bowie documented in this encounterMetropolitan Saint Louis Psychiatric CenterZfehxlgbjq08-64-3410 History of Present illness Narrative* JOSEPH Bowie [...] 23 weeks gestation of ([facility]) 02/26/2025 Elevated blood sugar level 02/26/2025 Resolved Ambulatory Problems Diagnosis Date Noted Missed period 01/13/2023 Past Medical History: Diagnosis Date GDM (gestational diabetes mellitus) ([facility]) HISTORY PAST MEDICAL HISTORY SOCIAL HISTORY Past Medical History: Diagnosis Date GDM (gestational diabetes mellitus) ([facility]) Social History Tobacco Use Smoking status: [...] PLAN ICD-10-CM 1. 28 weeks gestation of ([facility]) Z3A.28 POCT urinalysis dipstick manually resulted US OB follow up transabdominal approach US biophysical profile w non stress test 2. Third trimester ([facility]) Z34.93 POCT urinalysis dipstick manually resulted US OB follow up transabdominal approach US biophysical profile w non stress test 3. Dizziness R42 CBC and differential CBC and differential 4. Gestational diabetes mellitus (GDM), antepartum, gestational diabetes method of control unspecified ([facility]) O24.419 US OB follow up transabdominal [...] behalf of: JOSEPH Bowie documented in this encounterMetropolitan Saint Louis Psychiatric CenterKeczwmfcal48-47-9463 History of Present illness Narrative* Mukul Foy [...] 23 weeks gestation of ([facility] [facility] 02/26/2025 Elevated blood sugar level 02/26/2025 Resolved Ambulatory Problems Diagnosis Date Noted Missed period 01/13/2023 Past Medical History: Diagnosis Date GDM (gestational diabetes mellitus) ([facility]) No family history on file. Social [...] nursing note reviewed. Exam conducted with a metal extrusion supervisor present. Vitals: Estimated body mass index is 36.12 kg/m as calculated from the following: Height as of 01/30/23: 5' 6 . Weight as of this encounter: 223 lb 12.8 oz. BP: 100/70 Patient's last menstrual period was 09/16/2024. Assessment/Plan Encounter Diagnosis: ICD-10-CM 1. 25 weeks gestation of ([facility]) Z3A.25 POCT urinalysis dipstick manually resulted 2. Second trimester ([facility]) Z34.92 POCT urinalysis dipstick manually resulted [...] of: Mukul Foy DO documented in this encounterMetropolitan Saint Louis Psychiatric [id number] History of Present illness Narrative* Ceasar Li [...] 23 weeks gestation of ([facility]) 02/26/2025 Elevated blood sugar level 02/26/2025 Resolved Ambulatory Problems Diagnosis Date Noted Missed period 01/13/2023 Past Medical History: Diagnosis Date GDM (gestational diabetes mellitus) ([facility]) HISTORY PAST MEDICAL HISTORY SOCIAL HISTORY Past Medical History: Diagnosis Date GDM (gestational diabetes mellitus) ([facility]) Social History Tobacco Use Smoking status: [...] nursing note reviewed. Exam conducted with a metal extrusion supervisor present. Vitals: Estimated body mass index is 35.96 kg/m as calculated from the following: Height as of 01/30/23: 5' 6 . Weight as of this encounter: 222 lb 12.8 oz. BP: 110/70 Patient's last menstrual period was 09/16/2024. ASSESSMENT & PLAN ICD-10-CM 1. 23 weeks gestation of ([facility]) Z3A.23 POCT urinalysis dipstick manually resulted [...] of: Mukul Foy DO documented in this encounterMetropolitan Saint Louis Psychiatric CenterAoomcscldj36-60-8130 History of Present illness Narrative* JOSEPH Bowie [...] Diagnosis Date GDM (gestational diabetes mellitus) ([facility]) HISTORY PAST MEDICAL HISTORY SOCIAL HISTORY Past Medical History: Diagnosis Date GDM (gestational diabetes mellitus) ([facility]) Social History Tobacco Use Smoking status: Never [...] ASSESSMENT & PLAN ICD-10-CM 1. Second trimester ([facility]) Z34.92 metFORMIN XR (Glucophage-XR) 500 MG 24 hr tablet POCT urinalysis dipstick manually resulted 2. 20 weeks gestation of ([facility]) Z3A.20 metFORMIN XR (Glucophage-XR) 500 MG 24 [...] of: Mukul Foy DO documented in this encounterMetropolitan Saint Louis Psychiatric CenterCdvvngljcz30-74-2320 History of Present illness Narrative* Criselda Aguirre, MARKETING PR INTERN - 01/15/2025 3:50 PM EDT Reason for [...] History: Diagnosis Date GDM (gestational diabetes mellitus) ([facility]) HISTORY PAST MEDICAL HISTORY SOCIAL HISTORY Past Medical History: Diagnosis Date GDM (gestational diabetes mellitus) ([facility]) Social History Tobacco Use Smoking status: [...] nursing note reviewed. Exam conducted with a metal extrusion supervisor present. Vitals: Estimated body mass index is 34.19 kg/m as calculated from the following: Height as of 01/30/23: 5' 6 . Weight as of this encounter: 211 lb 12.8 oz. BP: 118/72 Patient's last menstrual period was 09/16/2024. ASSESSMENT & PLAN ICD-10-CM 1. Second trimester ([facility]) Z34.92 Alpha fetoprotein, maternal Alpha fetoprotein, maternal 2. 17 weeks gestation of ([facility]) Z3A.17 Alpha fetoprotein, maternal Alpha fetoprotein, maternal 3. Vaginal discharge N89.8 SURESWAB(R) ADVANCED VAGINITIS PLUS, TMA 4. STD exposure Z20.2 CHLAMYDIA TRACHOMATIS (GENITO/STI) Neisseria gonorrhea DNA probe, direct 5. Screening, , for anatomic survey ([facility]) Z36.89 US OB 14+ weeks anatomy scan 6. Gastroesophageal reflux in ([facility]) O99.619 omeprazole (PriLOSEC) [address] capsule K21.9 7. Gestational diabetes mellitus (GDM), antepartum, gestational diabetes method of control unspecified ([facility]) O24.419 glucose blood test strip Return [...] behalf of: alesha bowie documented in this encounterMetropolitan Saint Louis Psychiatric [id number] History of Present illness Narrative* JOSEPH Bowie [...] Documented by JOSEPH Bowie documented in this encounterMetropolitan Saint Louis Psychiatric CenterPlzzidpjno49-88-4097 History of Present illness Narrative* Elizabeth Ware [...] Nurse Note: Patient uncertain of doing the [place] screening. Pt was advised both labs and [...] or undercooked meat, and stay away from [facility]. Patient has also been advised to [...] by: Elizabeth Ware MA documented in this encounterMetropolitan Saint Louis Psychiatric CenterEusuvtfmtn79-56-2612 History of Present illness Narrative* Elizabeth Ware [...] nursing note reviewed. Exam conducted with a metal extrusion supervisor present. Vitals: Estimated body mass index [...] of: Mukul Foy DO documented in this encounterMetropolitan Saint Louis Psychiatric CenterVsthxjssgi98-93-4714 NoteHNO ID: [id number] Author: LANG CARREON APRN.INSERTING MACHINE OPERATOR Service: ? Author Type: Nurse Practitioner Type: Progress Notes Filed: 08/06/2023 10:44 Note Text: Telemedicine Visit - Distance Health Virtual Visit Note I have communicated my name and active licensure. The patient's identity and physical location were verified at the time of this visit. Either the patient or their legal outreach representative has been informed of the risks and benefits of -- and alternatives to -- treatment through a remote evaluation and consents to proceed with the evaluation remotely. Patient seen on virtual platforms, [employer]. Location of patient: [place] History of Presenting Illness: Vinny Downey 22 [...] - Sleep with head elevated due to vxjv-ocomp-wmfi increases cough - Continue Flonase - Flonase: [...] care - All questions answered Lang Carreon APRN.[facility]12-19-2023 NoteUT Electrophysiology Consult Note Reason for visit: [...] recent labs Rajendra Sheffield MD Cardiac Electrophysiology [facility]12-19-2023 NotePatient here for follow up event monitor. Echo was not performed that was ordered at last apt in Feb 2023 by Israel Champion CNP. Does not notice palpitations as often. Denies chest pain, SOB, and lightheadedness. Review of Systems Cardiovascular: Positive for palpitations (less often). All other systems reviewed and are negative.[facility] 03-30-2023 Note-developed anemia s/p -hgb 10.8 per recent labsUnPremier [facility]09-07-2023 Note- could be related to being , anemia -monitor and echo to rule out cardiac concernUnPremier Health [facility] 03-30-2023 Note- takes sertraline 50 mg dailyUnPrem[facility] 03-30-2023 Note- 30-day event monitor - we will hold off on starting medication until follow-upUnPremier Health [facility]08-28-2023 NoteNew patient here to establish care. Ref from Dr. Foy for bradycardia. She is 8 weeks . Had ECG last week. Symptoms started after baby was born. She feels palpitations. Did lose a lot of blood with , requiring transfusion. Denies chest pain and SOB. Review of Systems Cardiovascular: Positive for palpitations. Neurological: Positive for headaches. All other systems reviewed and are negative.[facility] 03-20-2023 NoteUT Electrophysiology Consult Note Reason [...] images are attached to (more content not included)...[facility]* Diagnosis Frequent UTI Urinary tract infection, site not specified documented in this encounter [employer] Phone: evaluation note* Diagnosis Amenorrhea Absence of menstruation documented in this encounter [employer] Phone: evaluation note* Diagnosis Elevated liver enzymes Nonspecific elevation of levels of transaminase or lactic acid dehydrogenase (LDH) Mixed hyperlipidemia documented in this encounter [employer] note* Diagnosis Well woman exam with routine gynecological exam Routine gynecological examination documented in this encounter [facility] [employer]Evaluation note* Diagnosis Missed menses 8 weeks gestation of , unspecified gestational age Encounter for supervision of normal first in first trimester History of miscarriage Personal history of other genital system and obstetric disorders documented in this encounter [facility] [employer]Evaluation note* Diagnosis Second trimester state, incidental 12 weeks gestation of Subchorionic hematoma in first trimester, single or unspecified fetus Diabetes mellitus screening Screening for diabetes mellitus documented in this encounter [facility] Tap[employer]eEvaluation note* Diagnosis Subchorionic hematoma, antepartum, first trimester, not applicable or unspecified fetus documented in this encounter [facility] [employer]-IT note* Diagnosis Second trimester ([facility]) state, incidental 17 weeks gestation of ([facility]) Vaginal discharge Leukorrhea, not specified as infective STD exposure Screening, , for anatomic survey ([facility]) Encounter for anatomic survey Gastroesophageal reflux in ([facility]) Gestational diabetes mellitus (GDM), antepartum, gestational diabetes method of control unspecified([facility]) documented [facility] this encounter [facility]* [...] antepartum, gestational diabetes method of control unspecified([facility]) History of miscarriage Personal history of other [...] diabetes mellitus (GDM) during , antepartum ([facility]) Gestational diabetes mellitus (GDM), antepartum, gestational diabetes method of control unspecified([facility]) documented in this encounter [facility] HealthcareReason for visit Narrative* Imaging (Routine) - OpenSpecialty Diagnoses / ProceduresReferred By ContactReferred To ContactRadiology Diagnoses Subchorionic hematoma, antepartum, first trimester, not applicable or unspecified fetus Procedures US OB LESS THAN 14 WEEKS SINGLE OR FIRST GESTATION W DOPPLER US OB TRANSVAGINAL Mukul Foy MD [address] [place] [address] Phone: tel: Referral IDStatusMaureenStyumiko DateExpiration DateVisits RequestedVisits [id number]/29/20255/ [facility] Diagnosis Screening for cervical cancer Screening for malignant neoplasm of the cervix Encounter for annual routine gynecological examination Diagnosis Encounter for screening for HIV Other fatigue Wellness examination Advance Directives TypeDate RecordedPatient RepresentativeExplanationAdvance Directives and Living WillPower of AttorneyTypeDate RecordedPatient RepresentativeExplanationACP- Advance DirectiveACP-Power of AttorneyTypeDate RecordedPatient Labor Relations Consultant ExplanationACP-Advance DirectiveACP-Power of Hide Paster Summary Purpose Family History No Family History Records FoundNo Family History Records FoundNo Family History Records FoundNo Family History Records FoundNo Family History Records FoundNo Family History Records FoundNo Family History Records Found Reason for Referral StatusReasonSpecialtyDiagnoses / ProceduresReferred By ContactReferred To ContactClosedRadiology Diagnoses Frequent UTI Procedures US RENAL COMPLETE Lorena Ricks, DIRECTOR OF STRATEGIC MARKETING - INSERTING MACHINE OPERATOR [address] [place] [address] Additional Source Comments INFORMATION SOURCE (unrecogn ized section and content) DATE CREATED AUTHOR 10/14/2020 [facility] DATE CREATED AUTHOR AUTHOR'S ORGANIZ ATION 09/26/2021 [facility] DATE CREATED AUTHOR AUTHOR'S ORGANIZ ATION 12/30/2022 [facility] DATE CREATED AUTHOR AUTHOR'S ORGANIZ ATION 08/03/2023 [facility] DATE CREATED AUTHOR AUTHOR'S ORGANIZ ATION 08/07/2023 [facility] DATE CREATED AUTHOR AUTHOR'S ORGANIZ ATION 01/09/2025 [facility] DATE CREATED AUTHOR AUTHOR'S ORGANIZ ATION 05/16/2025 [facility] Reason for Visit (unrecogniz ed section and content) StatusReasonSpecialtyDiagnoses / ProceduresReferred By ContactReferred To ContactClosedRadiology Diagnoses Frequent UTI Procedures US RENAL COMPLETE Lorena Ricks, DIRECTOR OF STRATEGIC MARKETING - INSERTING MACHINE OPERATOR [address] [place] [address] ReasonCommentsGynecologic ExamReasonCommentsAmenorrheaReasonCommentsRoutine VisitReasonCommentsRoutine VisitSTI Screening Care Teams (unrecognized sec tion and content) Team MemberRelationshipSpecialtyStart DateEnd Date Ynes Rodriguez, [facility] [address] [place] [address] PCP - Generalmily Nurse Gppfimtnghlk94/12/20Team MemberRelationshipSpecialty Start DateEnd Date Ynes Rodriguez, DIRECTOR OF STRATEGIC MARKETING - [facility] [address] [place] [address] PCP - GeneralMercyone Siouxland Medical Centerly Nurse Ldnwtpbkoibd97/12/20Team MemberRelationshipSpecialty Start DateEnd Date Ynes Rodriguez, [facility] [address] [facility] [place] [address] PCP - GeneralMercyone Siouxland Medical Centerly Nurse Practitioner08/02/22Team MemberRelationshipSpecialty Start DateEnd Date Ynes Rodriguez, [facility] [address] [place] [address] PCP - Generalmily Nurse Practitioner08/02/22Team MemberRelationshipSpecialty Start DateEnd Date Ynes Rodriguez, [facility] [address] [place] [address] PCP - GeneralFamily Nurse Practitioner08/02/22 FOR RECORDS [...] BE BASED ON THE PRIMARY CLINICAL RECORDS. [facility]. provides no warranty or guarantee of the accuracy or completeness of information in this document.
--- NOTE | 2025-05-28 15:33 | US_ITS ---
The [address] [address] Patient Name: VINNY HERRERA MRN: [id number] date: 2000 Sex: F Assigned Patient Location: Current Patient Location: US Accession/Order Number: [id number] Exam Date: 05/28/2025 16:05 Report Date: 05/29/2025 10:10 At the request of: BRITT HOLDER DO Procedure: US OB BPP w non-stress BIOPHYSICAL PROFILE: CLINICAL INFORMATION: Gestational diabetes mellitus There is a single live intrauterine gestation in cephalic presentation. The reported gestational age is 36 weeks 2 days. The heart rate measures 134 beats per minute. FINDINGS: TONE: 1 or more episodes of activity extension and flexion of extremity or opening and closing of the hand [Y] 2/2 GROSS BODY MOVEMENTS: 3 or more discrete body or limb movements [Y] 2/2 BREATHING MOVEMENTS: 1 or more episodes of breathing lasting at least 30 seconds [Y] 2/2 JAMAL: A single deepest vertical pocket of amniotic fluid greater than 2 cm [Y] 2/2 JAMAL: 15.6 cm Total score: 8/8 US/US OB BPP w non-stress IMPRESSION: NORMAL BIOPHYSICAL PROFILE Impression dictated by: Criselda Flores M.D. 05/29/2025 10:10 AM Dictation Location: [place] [address] Electronically authenticated by: [id number] Y Date: 05/29/2025 10:10
[2025-05-28 15:39] VITALS: BP 137/84; PULSE 75
== END 2025-05-28 16:37 | disposition home or self-care (01) ==
LOC: US 15:23 → FBC 15:24
PROVIDERS: PCP Nurse Practitioner Women's Health; Visit Provider Obstetrics & Gynecology
DX: O24.419 Gestational diabetes mellitus in pregnancy, unspecified control (principal)
CPT/HCPCS: 76818; 87081

== ENCOUNTER 2025-05-28 20:26 | Outpatient (REF) | payer OTHER, SELFPAY ==
--- OUTSIDE RECORDS SUMMARY | 2025-04-30 14:00 | XMS_ITS | Encounter Summary ---
Author Organization [facility] Address [address] [place] [address] Care Team Providers Care Hand Twister Name Role Phone Unavailable Primary Care Provider Unavailabl e Reason for Visit * ReasonCommentsRoutine Visit Encounter Details DateTypeDepartmentCare Team (Latest Contact Info)Ygnlaibothz55/08/2025 3:00 PM EDTRoutine [facility] [address] [place] [address] Tiffany Li, ASHWIN [address] [facility] [place] [address] Third trimester ([facility]); 32 weeks gestation of ([facility]) Social History Tobacco UseTypesPacks/DayYears UsedDateSmoking Tobacco: NeverSmokeless Tobacco: NeverAlcohol UseStandard Drinks/WeekCommentsNever0 (1 standard drink = 0.6 oz pure alcohol)Estimated Date of OhgtxuzcRbxsmbveXni80/01/2025Based on last menstrual period of 09/16/2024Sex and Gender InformationValueDate Recorded Sex Assigned at BirthNot on fileLegal NgdZxeqhy34/15/2023 11:47 PM EDTGender IdentityNot on fileSexual OrientationNot on filedocumented as of this encounter Last Filed Vital Signs Vital SignReadingTime TakenCommentsBlood Vlvbzwda392/7010 3:11 PM EDT Pulse--Temperature--Respiratory Rate--Oxygen Saturation--Inhaled Oxygen Concentration--Tulpwd112 kg (227 lb 6.4 oz)04/30/2025 3:11 PM EDTHeight--Body Mass Index36.707 12:12 PM EDTdocumented in this encounter Progress Notes * Tiffany Li NP - 04/30/2025 3:00 PM EDT Reason for Appointment: Patient ID: Portia Downey is a 24 y.o. female who presents for Routine Visit Patient presents today for Return OB appointment. MEDICATIONS Current Outpatient Medications Medication Instructions glucose blood test strip Use as instructed insulin pen needle 29G x 8mm misc 1 each, Subcutaneous, Daily iron polysaccharides (PROFE) 391.3 mg, Oral, Daily Lantus SoloStar 10 Units, Subcutaneous, Nightly, FILL ACCORDING TO INSURANCE COVERAGE metFORMIN XR (GLUCOPHAGE-XR) 1,000 mg, Oral, Daily [...] Frequent UTI 11/30/2020 23 weeks gestation of ([facility]) 02/26/2025 Elevated blood sugar level 02/26/2025 Resolved Ambulatory Problems Diagnosis Date Noted Missed period 01/13/2023 Past Medical History: Diagnosis Date GDM (gestational diabetes mellitus) ([facility]) HISTORY PAST MEDICAL HISTORY SOCIAL HISTORY Past Medical History: Diagnosis Date GDM (gestational diabetes mellitus) ([facility]) Social History Tobacco Use Smoking status: Never [...] nursing note reviewed. Exam conducted with a senior svp present. Vitals: Estimated body mass index is 36.7 kg/m?? as calculated from the following: Height as of 01/30/23: 5' 6 . Weight as of this encounter: 227 lb 6.4 oz. BP: 110/70 Patient's last menstrual period was 09/16/2024. ASSESSMENT & PLAN ICD-10-CM 1. Third trimester ([facility]) Z34.93 2. 32 weeks gestation of ([facility]) Z3A.32 POCT urinalysis dipstick manually resulted Return OB: Patient presents today for a routine obstetrics appointment. Patient is currently 32w2d . Patient states she is doing well but has complaints of being tired due to current . Patient has verbalizes frequent movement. labor precautions was discussed/given and patient was instructed to perform kick counts three times a day. Reviewed glucose logs today and doing well. Continue Lantus 10 units Orders Placed This Encounter Procedures POCT urinalysis dipstick manually resulted Follow Up: Patient is to return to office in 2 week for routine OB appointment. Documented by Tiffany Li NP on behalf of: Tiffany Li NP documented in this encounter Plan of Treatment DateTypeDepartmentCare Team (Latest Contact Info)Fddfkndxfbz01/10/2025 1:00 PM ESTRoutine [facility] [place] [address] [place] [phone] Mukul Fyo, DO [address] [facility] [place], [place] [phone] 07/28/2025 4:00 PM ESTOffice Visit [facility] [address] [place] [address] Mukul Foy, DO [address] [facility] [facility] [place] [address] documented as of this encounter Goals GoalPatient Goal TypeAssociated ProblemsRecent ProgressPatient-Stated?Author Reminders Care PlanOB RemindersNoOpen Scheduling, Backgrounddocumented as of this encounter Procedures Procedure NamePriorityDate/TimeAssociated DiagnosisCommentsPOCT URINALYSIS GMYSNOWZTanluvb51/08/2025 3:19 PM EDT 32 weeks gestation of ([facility]) documented in this encounter Results * (ABNORMAL) POCT urinalysis dipstick manually resulted (04/30/2025 3:19 PM EDT) ComponentValueRef RangeTest MethodAnalysis TimePerformed AtPathologist SignatureColor, UAYellowClarity, UAClearGlucose, UANegativeNegative - 2000(110) ++++ mg/dLBilirubin, UANegativeNegative - 4(70) +++ mg/dLKetones, UA NegativeNegative - 160(16) ++++ mg/dLSpec Grav, UA1.0101 - 1.03Blood, UA NegativeNegative - 50 Yunior/mcLpH, UA6.55 - 9Protein, UANegativeNegative - 2000(20) ++++ mg/dLUrobilinogen, UA2.00.2 - 12 mg/dLLeukocytes, UA1+Negative - 500+++ Trip/mcLNitrite, UANegativeNegative - PositiveSpecimen (Source) Anatomical Location / LateralityCollection Method / VolumeCollection Time Received KjjwXnuby06/08/2025 3:19 PM EDT Narrative Authorizing ProviderResult TypeResult StatusTiffany Li NPPOINT OF CARE TEST ENTER/EDIT ORDERABLESFinal Result documented in this encounter Visit Diagnoses Diagnosis Third trimester ([facility]) state, incidental 32 weeks gestation of ([facility]) documented in this encounter Additional Health Concerns Active ProblemsNoted DateDiagnosed DateOB Inmmmnwfr24/09/2025 documented as of this encounter
--- OUTSIDE RECORDS SUMMARY | 2025-05-14 13:50 | XMS_ITS | Encounter Summary ---
Author Organization [facility] Address [address] [place] [address] Care Team Providers Care Stock Patcher Name Role Phone Unavailable Primary Care Provider Unavailabl e Reason for Visit * ReasonCommentsRoutine Visit Encounter Details DateTypeDepartmentCare Team (Latest Contact Info)Mihxduihnfn41/22/2025 2:50 PM EDTRoutine [facility] [address] [address] Mukul Foy DO [address] [place], [place] [phone] Third trimester ([facility]); 34 weeks gestation of ([facility]); Insulin controlled gestational diabetes mellitus (GDM) during , antepartum ([facility]); Gestational diabetes mellitus (GDM), antepartum, gestational diabetes method of control unspecified([facility]) Social History Tobacco UseTypesPacks/DayYears UsedDateSmoking Tobacco: NeverSmokeless Tobacco: NeverAlcohol UseStandard Drinks/WeekCommentsNever0 (1 standard drink = 0.6 oz pure alcohol)Estimated Date of MhqlzaitXzohefwxNbe35/01/2025Based on last menstrual period of 09/16/2024Sex and Gender InformationValueDate Recorded Sex Assigned at BirthNot on fileLegal JcrMkirlj57/15/2023 11:47 PM EDTGender IdentityNot on fileSexual OrientationNot on filedocumented as of this encounter Last Filed Vital Signs Vital SignReadingTime TakenCommentsBlood Ygzvqlts323/7010 3:05 PM EDT Pulse--Temperature--Respiratory Rate--Oxygen Saturation--Inhaled Oxygen Concentration--Jtvaez550 kg (232 lb 1.9 oz)05/14/2025 3:05 PM [...] Frequent UTI 11/30/2020 23 weeks gestation of ([facility] 02/26/2025 Elevated blood sugar level 02/26/2025 Resolved Ambulatory Problems Diagnosis Date Noted Missed period 01/13/2023 Past Medical History: Diagnosis Date GDM (gestational diabetes mellitus) ([facility]) HISTORY PAST MEDICAL HISTORY SOCIAL HISTORY Past Medical History: Diagnosis Date GDM (gestational diabetes mellitus) ([facility]) Social History Tobacco Use Smoking status: [...] nursing note reviewed. Exam conducted with a legal support specialist present. Vitals: Estimated body mass index is 37.47 kg/m?? as calculated from the following: Height as of 01/30/23: 5' 6 . Weight as of this encounter: 232 lb 1.9 oz. BP: 110/70 Patient's last menstrual period was 09/16/2024. Assessment/Plan ICD-10-CM 1. Third trimester ([facility]) Z34.93 2. 34 weeks gestation of ([facility]) Z3A.34 POCT urinalysis dipstick manually resulted [...] Plan of Treatment DateTypeDepartmentCare Team (Latest Contact Info)Fwbwplqnczm86/10/2025 1:00 PM ESTRoutine [facility] [address] [phone] Mukul Foy, [address] [facility] [place] [address] 07/28/2025 4:00 PM ESTOffice Visit [facility] [address] [place] [phone] Mukul Foy, DO [address] [facility] [facility] [address] [place], [place] [phone] NameTypePriorityAssociated DiagnosesDate/TimeUS OB follow up transabdominal approachImagingRoutine Insulin controlled gestational diabetes mellitus (GDM) during , antepartum ([facility]) 05/28/2025 2:26 PM ESTNameTypePriorityAssociated DiagnosesOrder ScheduleUS OB follow up transabdominal approachImagingRoutine Insulin controlled gestational diabetes mellitus (GDM) during , antepartum ([facility]) Expected: 05/14/2025, Expires: 09/14/2025documented as of this encounter Goals GoalPatient Goal TypeAssociated ProblemsRecent ProgressPatient-Stated?Author Reminders Care PlanOB RemindersNoOpen Scheduling, Backgrounddocumented as of this encounter Procedures Procedure NamePriorityDate/TimeAssociated DiagnosisCommentsPOCT URINALYSIS GTAXRTDFSsjvgeq82/22/2025 3:13 PM EDT 34 weeks gestation of ([facility]) documented in this encounter Results * [...] this encounter Visit Diagnoses Diagnosis Third trimester ([facility]) state, incidental 34 weeks gestation of ([facility]) Insulin controlled gestational diabetes mellitus (GDM) during , antepartum ([facility]) Gestational diabetes mellitus (GDM), antepartum, gestational diabetes method of control unspecified([facility]) documented in this encounter Additional Health Concerns Active ProblemsNoted DateDiagnosed DateOB Erpmrecek26/09/2025 documented as of this encounter
--- OUTSIDE RECORDS SUMMARY | 2025-05-28 14:00 | XMS_ITS | Encounter Summary ---
Author Organization [facility] Address [address] [place] [address] Care Team Providers Care Electric Motor Mechanic Name Role Phone Unavailable Primary Care Provider Unavailabl e Encounter Details DateTypeDepartmentCare Team (Latest Contact Info)Udtmezzbitj64/05/2025 2:00 PM ESTAncillary Procedure [facility] [place] [address] Insulin controlled gestational diabetes mellitus (GDM) during , antepartum ([facility] Social History Tobacco UseTypesPacks/DayYears UsedDateSmoking Tobacco: NeverSmokeless Tobacco: NeverAlcohol UseStandard Drinks/WeekCommentsNever0 (1 standard drink = 0.6 oz pure alcohol)Estimated Date of JoqnozxwJyoqakwuIzw55/01/2025Based on last menstrual period of 09/16/2024Sex and Gender InformationValueDate Recorded Sex Assigned at BirthNot on fileLegal PzkHlmecm41/15/2023 11:47 PM EDTGender IdentityNot on fileSexual OrientationNot on filedocumented as of this encounter Plan of Treatment DateTypeDepartmentCare Team (Latest Contact Info)Bsjdqjuzene64/10/2025 1:00 PM ESTRoutine [facility] [address]ANTO [address] [place] [address] Mukul Foy, [address] [place], [place] [id number] 07/28/2025 4:00 PM ESTOffice Visit [facility] [address] [place] [phone] Mukul Foy DO [address] [place] [address] NameTypePriorityAssociated DiagnosesDate/TimeUS OB follow up transabdominal approachImagingRoutine Insulin controlled gestational diabetes mellitus (GDM) during , antepartum ([facility]) 05/28/2025 2:26 PM ESTdocumented as of this encounter Goals GoalPatient Goal TypeAssociated ProblemsRecent ProgressPatient-Stated?Author Reminders Care PlanOB RemindersNoOpen Scheduling, Backgrounddocumented as of this encounter Visit Diagnoses Diagnosis Insulin controlled gestational diabetes mellitus (GDM) during , antepartum ([facility]) documented in this encounter Additional Health Concerns Active ProblemsNoted DateDiagnosed DateOB Cllfxhoyy49/09/2025 documented as of this encounter
--- OUTSIDE RECORDS SUMMARY | 2025-05-28 14:30 | XMS_ITS | Encounter Summary ---
Author Organization [facility] Address [address] [place] [address] Care Team Providers Care English And Reading Instructor Name Role Phone Unavailable Primary Care Provider Unavailabl e Reason for Visit * ReasonCommentsRoutine Visit Encounter Details DateTypeDepartmentCare Team (Latest Contact Info)Ycvtuyscfjs16/05/2025 2:30 PM ESTRoutine [facility] [place] [facility] [address] [place] [address] Regina Barton PA [address] [place] [address] Third trimester ([facility]); 36 weeks gestation of ([facility]) Social History Tobacco UseTypesPacks/DayYears UsedDateSmoking Tobacco: NeverSmokeless Tobacco: NeverAlcohol UseStandard Drinks/WeekCommentsNever0 (1 standard drink = 0.6 oz pure alcohol)Estimated Date of TtsjghvpVdiqgdgxNpc55/01/2025ased on last menstrual period of 09/16/2024Sex and Gender InformationValueDate Recorded Sex Assigned at BirthNot on fileLegal RxqUevknn37/15/2023 11:47 PM EDTGender IdentityNot on fileSexual OrientationNot on filedocumented as of this encounter Last Filed Vital Signs Vital SignReadingTime TakenCommentsBlood Mbbjiiwb621/80107/28/2024 2:52 PM EST Pulse--Temperature--Respiratory Rate--Oxygen Saturation--Inhaled Oxygen Concentration--Halsnt245 kg (237 lb 12.8 oz)05/28/2025 2:52 PM ESTHeight--Body Mass Index38.38001/30/2023 12:12 PM EDTdocumented in this encounter Plan of Treatment DateTypeDepartmentCare Team (Latest Contact Info)Qpmlnadlwxa02/10/2025 1:00 PM ESTRoutine [facility] [place] [facility] [address] [place] [address] Mukul Foy, DO [address] [address] [facility] [address] [place], [place] [address] 07/28/2025 4:00 PM ESTOffice Visit [facility] [address] [facility] [address] Mukul Foy, DO [address] [facility] [address] [place] [address] NameTypePriorityAssociated DiagnosesOrder ScheduleCULTURE, GROUP B STREP WITH SUSCEPTIBLITYLabRoutine Third trimester ([facility]) Expected: 05/28/2025, Expires: 05/28/2026documented as of this encounter Goals GoalPatient Goal TypeAssociated ProblemsRecent ProgressPatient-Stated?Author Reminders Care PlanOB RemindersNoOpen Scheduling, Backgrounddocumented as of this encounter Procedures Procedure NamePriorityDate/TimeAssociated DiagnosisCommentsPOCT URINALYSIS EKZDAQVWOtkuzcq08/05/2025 2:52 PM EST 36 weeks gestation of ([facility]) documented [...] 2:52 PM EST Narrative Authorizing ProviderResult TypeResult Status[facility] TEST ENTER/EDIT ORDERABLESFinal Result documented in this encounter Visit Diagnoses Diagnosis Third trimester ([facility]) state, incidental 36 weeks gestation of ([facility]) documented in this encounter Additional Health Concerns Active ProblemsNoted DateDiagnosed DateOB Zhsmhtiyv11/09/2025 documented as of this encounter
--- OUTSIDE RECORDS SUMMARY | 2025-05-28 20:30 | XMS_ITS | Clinical Summary ---
Author Organization [facility] Address [address] [place], [place] [address] Care Team Providers Care Customer Training Specialist Name Role Phone Unavailable Primary Care Provider Unavailabl e Allergies No known active allergies Medications MedicationSigDispense QuantityRefillsLast FilledStart DateEnd DateStatus benzonatate (TESSALON PERLE) 100 mg capsule Take 1-2 capsules every 8 hours as needed. 60 capsule 4Active Active Problems No known active problems Social History Tobacco UseTypesPacks/DayYears UsedDateSmoking Tobacco: Never Assessed CommentsUnknownSex and Gender InformationValueDate RecordedSex Assigned at Not on fileLegal HrmWbvxtw67/14/2024 10:20 AM ESTGender IdentityNot on file Sexual OrientationNot on file Plan of Treatment Health MaintenanceDue DateLast DoneCommentsPeds To Adult Transition Initial Vxlmtcqqaw61/17/2011Peds To Adult Transition Annual Bshewzanqk49/17/2013nxiety Bdaqgwdam55/17/2017Depression Aemczcutf96/17/2017HIV Vssdeeepg84/17/2017 Hepatitis C Qxzypxqlv48/17/2017Cervical Cancer Lktkqfizx73/17/2020DTaP,Tdap,Td Vaccine (7 - Td or Tdap), 11/20/2003, 03/13/2000, Additional history existsCovid-19 Vaccine ( season)/02/2021, 12/07/2020Influenza Vaccine (#1)2025Hepatitis B VaccineCompleted 06/09/1999, 1998, 1998HPV EankvvyYfeonypmr93/28/2018, 05/01/2017, 02/24/2017 Insurance
--- OUTSIDE RECORDS SUMMARY | 2025-05-28 20:30 | XMS_ITS | Encounter Summary ---
Author Organization [facility] Address [address], [address] [place] [address] Care Team Providers Care Hog Cutter Name Role Phone Ynes Mistry STRUCTURAL RIGGER - CHILDBIRTH AND INFANT CARE TEACHER Primary Care Provide r Reason for Visit * ReasonCommentsMedication Refill Encounter Details DateTypeDepartmentCare Team (Latest Contact Info)Kartndtkdtg42/05/2025RefCommunity [facility] [address] [place] [address] [address] [place] [address] Ynes Mistry STRUCTURAL RIGGER - CHILDBIRTH AND INFANT CARE TEACHER [address] [place] [address] [address] [place] [id number] Medication Refill Social History Tobacco UseTypesPacks/DayYears UsedDateSmoking Tobacco: NeverSmokeless Tobacco: NeverAlcohol UseStandard Drinks/WeekCommentsNot Currently0 (1 standard drink = 0.6 oz pure alcohol)socialAH UtilitiesAnswerDate RecordedIn the past 12 months has the electric, gas, oil, or water [employer] threatened to shut off services in your home?No10/07/2024Overall Financial Resource Strain (CARDIA)AnswerDate RecordedHow hard is it for you to pay for the very basics like food, housing, medical care, and heating?Not hard at all07/13/2023HQ-2AnswerDate RecordedPHQ-9 Total Ggxbk150Hunger Vital SignAnswerDate RecordedWithin the past 12 months, [...] steady place to sleep or slept in [facility] (including now)?No07/13/2023Housing Stability Vital SignAnswerDate RecordedIn the [...] more.CommentsNoSex and Gender InformationValueDate RecordedSex Assigned at TrugvCartfy60/28/2024 8:24 PM EDTLegal BigPsnkbo83/10/2013 3:31 PM ESTGender UaqeudpcKwntif38/28/2024 8:24 PM EDTSexual OrientationNot on filedocumented as of this encounter Plan of Treatment Not on file documented as of this encounter Visit Diagnoses Not on filedocumented in this encounter Care Teams Team MemberRelationshipSpecialtyStart DateEnd Date Ynes Mistry, STRUCTURAL RIGGER - CHILDBIRTH AND INFANT CARE TEACHER [address] [place] [address] PCP - GeneralFamily Nurse Practitioner08/02/22documented as of this encounter
--- OUTSIDE RECORDS SUMMARY | 2025-05-28 20:30 | XMS_ITS | Encounter Summary ---
Author Organization [facility] Address [address] [place] [address] Care Team Providers Care Phonograph Cartridge Assembler Name Role Phone Unavailable Primary Care Provider Unavailabl e Encounter Details DateTypeDepartmentCare Team (Latest Contact Info)Rjgrqlhntzy69/29/2025linisync Result Encounter [facility] Unsolicited Britt Foy DO [address] [place], [place] [id number] Social History Tobacco UseTypesPacks/DayYears UsedDateSmoking Tobacco: NeverSmokeless Tobacco: NeverAlcohol UseStandard Drinks/WeekCommentsNever0 (1 standard drink = 0.6 oz pure alcohol)Estimated Date of BshtitakSfuzaqeyChs51/01/2025Based on last menstrual period of 09/16/2024Sex and Gender InformationValueDate Recorded Sex Assigned at BirthNot on fileLegal LnpTwvjrl57/15/2023 11:47 PM EDTGender IdentityNot on fileSexual OrientationNot on filedocumented as of this encounter Plan of Treatment DateTypeDepartmentCare Team (Latest Contact Info)Slpkoqyavsd18/10/2025 1:00 PM ESTRoutine [facility] [place] [facility] [address] [place] [phone] Britt Foy DO [address] [place] [address] 07/28/2025 4:00 PM ESTOffice Visit [facility] [place] [facility] [address] [place] [address] Britt Foy, DO [address] [place] [address] documented as of this encounter Goals GoalPatient Goal TypeAssociated ProblemsRecent ProgressPatient-Stated?Author Reminders Care PlanOB RemindersNoOpen Scheduling, Backgrounddocumented as of this encounter Procedures Procedure NamePriorityDate/TimeAssociated DiagnosisCommentsUS OB BPP W NON-ZNCWIV4105/21/2025 7:56 PM EDT documented in this encounter Results * US OB BPP W NON-STRESS (05/21/2025 7:56 PM EDT)Anatomical Region LateralityModalityOtherSpecimen (Source)Anatomical Location / Laterality Collection Method / VolumeCollection TimeReceived Time05/21/2025 7:56 PM EDT Narrative 05/21/2025 7:59 PM EDT The [facility] ?[address] ? [place] [address] ? Ultrasound Report ? Signed ? Patient: VINNY HERRERAIA Ericka ?MR#: [id number] ?? : 2000 ?Acct:[id number] ?? Age/Sex: 24 / F ?ADM Date: 05/21/25 ?? Loc: US ? Attending Dr: Britt Foy D.O. ? Ordering Physician: Britt Foy D.O. ?? Date of Service: 05/21/25 ?? Procedure(s): US OB BPP w non-stress ?? Accession Number(s): [id number] ? cc: Britt Foy D.O.; Ynes Mistry NP ? The [facility] ? [address] ? [place] [address] ? Patient Name: ?? VINNY HERRERA ? MRN: [id number] ? date: 2000 ?Sex: F ?? Assigned Patient Location: [facility]BC ?? Current Patient Location: ? Accession/Order Number: [id number] ?? Exam Date: 05/21/2025 ??16:12 ?Report Date: [...] Dictation Location: RADIO-PC-29 ? Electronically authenticated by: [id number] ??Y ?? Date: 05/21/2025 ??19:56 ? Dictated By: ?Chevy Moreland M.D. ? Signed By: ?05/21/251958 ? DD/ 55 ? TD/TT: ? Film Developing Machine Operator: Procedure Note Radiology, Radiologist, - 05/21/2025 [place] [address] Ultrasound Report Signed Patient: VINNY HERRERA CMR#: [id number] : 2000Acct:[id number] Age/Sex: 24 / FADM Date: 05/21/25 Loc: US Attending Dr: Britt Foy D.O. Ordering Physician: Britt Foy D.O. Date of Service: 05/21/25 Procedure(s): US OB BPP w non-stress Accession Number(s): [id number] cc: Britt Foy D.O.; Ynes Mistry [employer]INO CASHIER The [place] [id number] Patient Name: VINNY HERRERA MRN: [id number] date: 2000 Sex: F Assigned Patient Location: [facility] Current Patient Location: Accession/Order Number: [id number] Exam Date: 05/21/2025 16:12 Report Date: 05/21/2025 19:56 At the request of: BRITT FOY DO Procedure: US OB BPP w non-stress Ultrasound biophysical profile INDICATION: Gestational diabetes COMPARISON: 05/07/2025 FINDINGS/IMPRESSION:: Fetus cephalic position. 8/8 score biophysical profile. heart rate 139 beats per minutes. JAMAL 19.1 cm . Impression dictated by: Chevy Moreland M.D. 05/21/2025 7:56 PM Dictation Location: [place] [address] Electronically authenticated by: [id number] Y Date: 9:56 Dictated By: Chevy Moreland M.D. Signed By:05/21/251958 DD/ 55 TD/TT: Film Developing Machine Operator: Authorizing ProviderResult TypeResult StatusCorey Law DOCLINISYNC IMAGINGFinal Result documented in this encounter Visit Diagnoses Not on filedocumented in this encounter Additional Health Concerns Active ProblemsNoted DateDiagnosed DateOB Dmagpqltz41/09/2025 documented as of this encounter
--- OUTSIDE RECORDS SUMMARY | 2025-05-28 20:30 | XMS_ITS | CCD ---
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 Name Role Phone Jannette Peña I Primary Care Provider [phone] Ynes Rodriguez Primary Care Provider [facility] Primary Care Provide r LAW, MUKUL R Admitting Unavailable LAW, MUKUL R Primary Care Unavailable LAW, MUKUL R Admitting Unavailable LAW, MUKUL R Primary Care Unavailable LAW, MUKUL R Admitting Unavailable LAW, MUKUL R Primary Care Unavailable BERTO LIVE Admitting Unavailabl e LAW, MUKUL R Primary Care Unavailable Fede [employer], Ynes Conner Primary Care Provide r Unavailable Primary Care Provider Unavailabl e LAW ., DR DE LA TORRE Attending Unavailable MISC, DR YAÑEZ Primary Care Unavailable [place], DR YELENA Henao Consulting Unavailable LAW ., [...] Unavailable MISC, DR YAÑEZ Primary Care Unavailable [place], DR YELENA Henao Consulting Unavailable LAW ., [...] mg oral tablet (1 source)HMG-CoA Reductase InhibitorStart: 20-88-4936mxcm 1 tablet by mouth once dailyatorvastatin (LIPITOR) 10 MG tablet Take 1 tablet by mouth daily 30 tablet 5 02/20/2024 Activecephalexin 500 mg oral capsule (4 sources)Cephalosporin AntibacterialStart: 04-03-2025 End: 76-98-7411uuva 1 capsule by mouth in the morning, [...] mg oral tablet (8 sources)Histamine-1 Receptor AntagonistStart: 30-06-3546ewcp 1 tablet by mouth once dailycetirizine (ZYRTEC) 10 MG tablet Take 1 tablet by mouth daily 90 tablet 3 03/12/2021 ActiveStart: 38-16-2953ibsh 1 tablet by mouth once daily cetirizine (ZYRTEC) 10 MG tablet Take 1 tablet by mouth daily 90 tablet 3 06/29/2020 Activedrospirenone 4 mg oral tablet (1 source)ProgestinStart: 93-92-7157jjfu 1 tablet by mouth once daily Drospirenone (SLYND) 4 MG TABS Indications: Irregular menses Take 1 tablet by mouth daily 84 tablet4 05/12/2021 Activedrospirenone 3 mg / ethinyl estradiol 0.03 mg oral tablet (9 sources)Progestin, EstrogenStart: 17-30-4816NROKB 3-0.03 MG TABS Indications: Irregular menses TAKE 1 TABLET DAILY 84 tablet 0 05/03/2021 ActiveStart: 29-75-8064nivp 1 tablet by mouth once dailydrospirenone-ethinyl estradiol (CHANDANA 28) 3-0.03 MG TABS Indications: Irregular menses Take 1 tablet by mouth daily 3 packet 4 03/03/2020 ActiveEthinyl Estradiol / Ferrous fumarate / Norethindrone (6 sources)EstrogenStart: 20-58-4868ZRWLC FE 24 1-20 MG-MCG(24) TABS Indications: DUB (dysfunctional uterine bleeding) TAKE 1 TABLET DAILY 84 tablet 1 08/27/2018 ActiveStart: 61-66-1669ahyq 1 tablet by mouth once dailyNorethin David-Eth Estrad-FE 1-20 MG-MCG(24) TABS Indications: Irregular menses Take 1 tablet by mouth daily 28 tablet 12 05/04/2018 ActiveStart: 21-14-0555yraf 1 tablet by mouth once dailyNorethin David-Eth Estrad-FE (JUNEL FE 24) 1-20 MG- MCG(24) TABS Indications: Irregular menses Take 1 tablet by mouth daily 84 tablet 3 07/21/2017 Activefexofenadine / Pseudoephedrine (2 sources)alpha-Adrenergic Agonist, Histamine-1 Receptor Antagonist Fexofenadine-Pseudoephedrine (JOSÉ MIGUEL-D PO) Take by mouth 0 Activefluconazole 150 mg oral tablet (1 source)Azole AntifungalStart: 15-21-6609hhec 1 tablet by mouth once daily as [...] pen injector (13 sources)Insulin AnalogStart: 05-14-2025 End: 79-92-4994rnuppxe glargine (Lantus SoloStar) 100 UNIT/ML pen Indications: Hyperglycemia Inject 15 Units underthe skin at bedtime FILL ACCORDING TO INSURANCE COVERAGE 3 mL 05/14/2025 06/13/2025 ActiveStart: 04-07-2025 End: 83-61-8377iwjsfd 10 [IU] by subcutaneous injection at bedtimeinsulin glargine (Lantus SoloStar) 100 UNIT/ML pen Indications: Hyperglycemia Inject 10 Units underthe skin at bedtime FILL ACCORDING TO INSURANCE COVERAGE 3 mL 04/07/2025 05/14/2025 Discontinued (Reorder)loratadine 10 mg oral capsule (2 sources)take 1 capsule by mouth once dailyloratadine (CLARITIN) 10 MG capsule Take 10 mg by mouth daily 0 Izilkx35 hr metFORMIN hydrochloride 500 mg extended release oral tablet (20 sources)BiguanideStart: 02-11-2025 End: 14-93-7773mupm 2 tablets by mouth every twenty-four hours at mealtime metFORMIN XR (Glucophage-XR) 500 MG 24 hr tablet Indications: Second trimester ([facility]) , 20 weeks gestation of ([facility]) Take 2 tablets (1,000 mg) by mouth in the evening. Take with meals 60 tablet 5 02/11/2025 08/10/2025 ActiveStart: 11-05-2024 End: 63-61-4225uaah 1 tablet by mouth every twenty-four hours in the morning metFORMIN XR (Glucophage-XR) 500 MG 24 hr tablet Take 1,000 mg by mouth in the morning and 1,000 mgin the evening. 11/05/2024 02/11/2025 Discontinued (Reorder) Start: 11-05-2024 End: 58-41-3295tcsOWVYAZ (GLUCOPHAGE-XR) 500 MG extended release tablet Indications: BMI 37.0-37.9, adult , Class 2 obesity with body mass index (BMI) of 37.0 to 37.9 in adult, unspecified obesity type, unspecifiedwhether serious comorbidity present TAKE 2 TABLETS BY MOUTH IN THE MORNING AND AT BEDTIME 120 tablet 5 11/05/2024 05/04/2025 ActiveStart: 04-26-2024 End: 43-47-1296halWPELOE (GLUCOPHAGE-XR) 500 MG extended release tablet Indications: BMI 37.0-37.9, adult , Class 2 obesity with body mass index (BMI) of 37.0 to 37.9 in adult, unspecified obesity type, unspecifiedwhether serious comorbidity present Take 2 tablets by mouth in the morning and at bedtime 360 tablet 1 04/26/2024 10/23/2024 Activemetoclopramide 10 mg oral tablet (18 sources)Dopamine-2 Receptor AntagonistStart: 03-12-2025 End: 86-84-2349rjqouplrqrecup (Reglan) 10 MG tablet Indications: Gastroesophageal reflux [...] 50 mg oral capsule (4 sources)Nitrofuran AntibacterialStart: 20-79-4761mucj 1 capsule by mouth once dailynitrofurantoin (MACRODANTIN) 50 MG capsule Indications: Recurrent UTI Take 1 capsule by mouth nightly 30 capsule 0 03/03/2020 Activepantoprazole 40 mg delayed release oral tablet (20 sources)Proton Pump InhibitorStart: 02-26-2025 End: 73-84-1389qxnc 1 tablet by mouth before mealtimepantoprazole (Protonix) 40 MG EC tablet Indications: 23 weeks gestation of ([facility]) , Elevated blood sugar level , Gastroesophageal reflux disease without esophagitis Take 1 tablet (40 mg)by mouth in the morning. Take before meals. Do not crush, chew, or split. 30 tablet 11 02/26/2025 02/26/2026 Activephentermine hydrochloride 37.5 mg oral tablet (1 source)Sympathomimetic Amine AnorecticStart: 05-01-2024 End: 85-76-6589syed 37-37.9 tablets by mouth once dailyphentermine (ADIPEX-P) [...] mg oral capsule (12 sources)Start: 04-02-2025 End: 18-08-1778cehf 1 capsule by mouth once dailyiron polysaccharides (ProFe) 391.3 (180 Fe) MG capsule Indications: Dizziness Take 1 capsule (391.3mg) by mouth Daily 30 capsule 6 04/02/2025 05/02/2025 ActiveProbiotic Product (PROBIOTIC ADVANCED PO) (6 sources)Probiotic Product (PROBIOTIC ADVANCED PO) Take by mouth Active Probiotic Product (PROBIOTIC ADVANCED PO) Take by mouth 0 ActiveProgesterone (1 source)ProgesteroneStart: 32-31-6189Wqdfyxaahwij [address] 200 mg vaginally nightly 10/16/2024 ActiveProgesterone 200 MG suppository (2 sources)Start: 11-14-2024 End: 47-36-5416Oflprszzbnwo 200 MG suppository Indications: History of miscarriage Insert 200 mg into the vagina at bedtime Insert suppository vaginally every night at bedtime until 12 weeks gestation 30 suppository 2 11/14/2024 12/14/2024 ActiveStart: 10-16-2024 End: 32-31-2557Svyjgxwvtthy 200 MG suppository Indications: History of miscarriage Insert 200 mg into the vagina at bedtime Insert suppository vaginally every night at bedtime until 12 weeks gestation 30 suppository 3 10/16/2024 11/14/2024 Discontinued (Reorder)sertraline 25 mg oral tablet (20 sources)Serotonin Reuptake InhibitorStart: 72-67-7617kbpp 1 tablet by mouth once dailysertraline (ZOLOFT) 25 MG tablet Take 1 tablet by mouth daily 30 tablet 5 11/12/2024 ActiveStart: 05-62-8989bmqf 1 tablet by mouth once daily in the morningsertraline (Zoloft) 50 MG tablet Indications: Anxiety, generalized TAKE 1 TABLET BY MOUTH EVERY DAYIN THE MORNING 30 tablet 3 10/25/2024 Active Start: 75-19-2582lasb 1 tablet by mouth once daily in the morningsertraline (Zoloft) 50 MG tablet Indications: Anxiety, generalized (CMS/HCC) TAKE 1 TABLET BY MOUTHEVERY DAY IN THE MORNING 30 tablet 3 06/27/2024 ActiveStart: 10-17-2023 take 1 tablet by mouth once dailysertraline (ZOLOFT) 50 MG tablet Indications: Anxiety Take 1 tablet by mouth daily 30 tablet 10/17/2023 ActiveStart: 61-08-4894kulm 1 tablet by mouth once dailysertraline (ZOLOFT) 25 MG tablet Indications: Anxiety Take 1 tablet by mouth daily 90 tablet 3 03/29/2022 Active Start: 43-02-3694rggt 1 tablet by mouth once dailysertraline (ZOLOFT) 25 MG tablet Take 1 tablet by mouth daily 90 tablet 3 03/12/2021 ActiveStart: 10-33-1463amdl 1 tablet by mouth once dailysertraline (ZOLOFT) 50 MG tablet Take 1 tablet by mouth daily 30 tablet 2 08/17/2020 Activesulfamethoxazole 800 mg / trimethoprim 160 mg oral tablet (2 sources)Dihydrofolate Reductase Inhibitor Antibacterial, Sulfonamide AntimicrobialStart: 85-96-5211zycv 1 tablet by mouth every twelve hours sulfamethoxazole-trimethoprim (BACTRIM DS;SEPTRA DS) 800-160 MG per tablet TAKE 1 TABLET BY MOUTH EVERY 12 HOURS FOR 7 DAYS 0 02/24/2020 ActiveTirzepatide (MOUNJARO) 2.5 MG/0.5ML SOPN SC injection (1 source)Start: 98-73-7544Zcinudqtfgp (MOUNJARO) 2.5 MG/0.5ML SOPN SC injection Indications: Mixed hyperlipidemia , BMI 37.0-37.9, adult , Class 2 obesity with body mass index (BMI) of 37.0 to 37.9 in adult, unspecified obesity type, unspecified whether serious comorbidity present Inject 0.5 mLs into the skin once a week 4 mL 1 05/01/2024 ActivetraZODone hydrochloride 50 mg oral tablet (1 source)Serotonin Reuptake InhibitorStart: 83-74-6122qdxk 0.5 tablet by mouth once dailytraZODone (DESYREL) 50 MG tablet Take 0.5 tablets by mouth nightly 30 tablet 2 05/01/2020 Active Completed/Discontinued Medications MedicationDrug Class(es)DatesSig (Normalized)Sig (Original)norethindrone 0.35 mg oral tablet (2 sources)Start: 03-10-2023 End: 51-93-6615xzih 1 tablet by mouth in the morningnorethindrone (Micronor) 0.35 MG tablet Indications: General counseling and advice on contraceptive management Take 1 tablet (0.35 mg) by mouth in the morning. 28 tablet 11 03/10/2023 07/15/2024 Discontinued (Therapy completed)omeprazole 20 mg delayed release oral capsule (8 sources)Proton Pump InhibitorStart: 01-15-2025 End: 71-35-8776gwhc 1 capsule by mouth before mealtimeomeprazole (PriLOSEC) [address] capsule Indications: Gastroesophageal Reflux Disease , Heartburn Take 1 capsule (20 mg) by mouth in the morning. Take before meals. Do not crush or chew. 30 capsule 3 01/15/2025 02/26/2025 Discontinued (Formulary change) Problems Active Problems Problem ClassificationProblemDateDocumented DateEpisodic/Chronic Administrative/social admission (4 sources)Dietary counseling and surveillance; Translations: [DIETARY COUNSELING AND SURVEILLANCE]Onset: 37-17-2412UxtedvncXegrpfs disorders (20 sources)Anxiety; Translations: [Anxiety disorder, unspecified]Onset: 407321-83-7944LbvkigaHcabmopndv associated with dizziness or vertigo (2 sources)Dizziness; Translations: [Dizziness and giddiness]68-48-4364Zpewcdgk Deficiency and other anemia (2 sources)Anemia; Translations: [Anemia, unspecified]11-38-9189KpiylkozVtjkfcgj mellitus without complication (20 sources)Other abnormal glucose; Translations: [Abnormal glucose level]Onset: 61-18-2416YtrlzxujKglecqrr or abnormal glucose tolerance complicating ; childbirth; or the puerperium (12 sources)Gestational diabetes mellitus in , unspecified control; Translations: [Gestational diabetes mellitus complicating ]Onset: 965298-60-3260LevgwszdLakjvbfnl of lipid metabolism (7 sources)Mixed hyperlipidemia; Translations: [Mixed hyperlipidemia]Onset: 899127-77-0298KuqulizCqmzfeyiun disorders (6 sources)Gastroesophageal reflux disease; Translations: [Gastro-esophageal reflux disease without esophagitis]Onset: hronic Genitourinary symptoms and ill-defined conditions (2 sources)Urinary symptoms ; Translations: [Unspecified symptoms and signs involving the genitourinary system]85-46-3825KeyavwbeTqwgfjopif during ; abruptio placenta; placenta previa (1 source)Other antepartum hemorrhage, first trimester; Translations: [Other antepartum hemorrhage, first trimester]Onset: 26-78-1887QjtflvybIjejezqkuhveg and screening for infectious disease (4 sources)Encounter for screening for infections with a predominantly sexual mode of transmission; Translations: [Encounter for screening for human papillomavirus (HPV)]Onset: 355273-42-4463RuwsxcweMfyeircsixvgw mental health disorders (20 sources)Insomnia disorder related to another mental disorder; Translations: [Insomnia due to other mental disorder]Onset: 05-02-2020 Resolved: 122854-91-4835AzzrvctOghmc complications of (4 sources)Maternal care for excessive growth, third trimester, not applicable or unspecified; Translations: [MAT CARE EXCSS FTL GRTH 3RD TRI UNS] Onset: 76-46-1293PtdhnblcDvoie complications of (3 sources)Maternal care for excessive growth, unspecified trimester, not applicable or unspecified; Translations: [MAT CARE EXCSS FTL GRTH UNS TRI UNS] Onset: 34-92-6575YdcrktmfOgrbl complications of (2 sources)Gastroesophageal reflux disease in ; Translations: [Diseases of the digestive system complicating , unspecified trimester] 12-82-0306EweqvbytKphhw female genital disorders (20 sources)Pain in female genitalia on intercourse; Translations: [Unspecified dyspareunia]Onset: 11-30-2020 Resolved: 435171-57-2459JyakgsaJhfhg female genital disorders (2 sources)Vaginal discharge; Translations: [Other specified noninflammatory disorders of vagina]56-96-8836ChbygktnYaxhy injuries and conditions due to external causes (4 sources)Encounter for examination and observation following other accident; Translations: [ENC EXAM AND OBSERVATION FOLLOW OTH ACC]Onset: 28-88-4192Gjgermkw Other liver diseases (3 sources)Steatosis of liver; Translations: [Fatty (change of) liver, not elsewhere classified]Onset: 208453-63-9434RjdojklYlaxg nutritional; endocrine; and metabolic disorders (1 source)Body mass index 30+ - obesity; Translations: [Body mass index (BMI) 37.0-37.9, adult]Onset: 413410-91-6362AjisjbjWrfms nutritional; endocrine; and metabolic disorders (3 sources)Obesity; Translations: [Class 2 obesity with body mass index (BMI) of 37.0 to 37.9 in adult]Onset: 642655-66-2948QpwuwktEqtwl and delivery including normal (20 sources)Encounter for supervision of normal , unspecified, unspecified trimester; Translations: [ state, incidental]Onset: 83-85-7337AsqmitkoBdlbi screening for suspected conditions (not mental disorders or infectious disease) (20 sources)Encounter for other screening follow-up; Translations: [Encounter for screening, unspecified]Onset: 75-79-9679XdumlmozZjvzw upper respiratory disease (8 sources)Seasonal allergic rhinitis; Translations: [Other seasonal allergic rhinitis]Onset: 341169-47-9823JesdsuyPnrmfyqpnsbqol and other problems of amniotic cavity (4 sources)Subchorionic hematoma; Translations: [Other specified disorders of amniotic fluid and membranes, first trimester, not applicable or unspecified] Onset: 054448-70-8205PkkvkglqYwkfdtcm codes; unclassified (1 source)34 weeks gestation of ; Translations: [34 WEEKS GESTATION OF ]Onset: 76-96-8035UkusevyjShtaeauw codes; unclassified (1 source)33 weeks gestation of ; Translations: [33 WEEKS GESTATION OF ]Onset: 90-02-9128UqarlcdyOmaqmwov codes; unclassified (1 source)Gestation period, 8 weeks; Translations: [8 weeks gestation of ]30-94-5039JccxatkaWjckwrpt codes; unclassified (3 sources)H/O: miscarriage; Translations: [Personal history of other complications of , childbirth and the puerperium]67-57-9849Gqnwlxlj Residual codes; unclassified (2 sources)Gestation period, 12 weeks; Translations: [12 weeks gestation of ]07-27-4389IbifgzkrUzrhnzgw codes; unclassified (2 sources)Gestation period, 17 weeks; Translations: [17 weeks gestation of ]59-26-8066XwyxwvsxIjdbplzh codes; unclassified (2 sources)Gestation period, 20 weeks; Translations: [20 weeks gestation of ]88-48-1718DriicfgwVawhjkjs codes; unclassified (20 sources)Gestation period, 23 weeks; Translations: [23 weeks gestation of ]Onset: 947839-26-0255SgpxadhwWgkgrvxy codes; unclassified (2 sources)Gestation period, 25 weeks; Translations: [25 weeks gestation of ]29-69-0845UzogdtibYvowrdce codes; unclassified (2 sources)Gestation period, 28 weeks; Translations: [28 weeks gestation of ]72-77-0812KrphtamxSnfrytyw codes; unclassified (2 sources)Gestation period, 30 weeks; Translations: [30 weeks gestation of ]08-42-1384FxamwaahThiopwdq codes; unclassified (2 sources)Gestation period, 32 weeks; Translations: [32 weeks gestation of ]44-47-9837OwuuxmczPhodrqkm codes; unclassified (2 sources)Gestation period, 34 weeks; Translations: [34 weeks gestation of ]92-16-5860LyvvebmaZdlxjtcyihkw (1 source)Cancer cervix screening status; Translations: [Screening for cervical cancer]Unclassified (3 sources)Patient encounter status; Translations: [Encounter for annual routine gynecological examination]Unclassified (20 sources)OB RemindersOnset: 610220-80-5398 Past or Other Problems Problem ClassificationProblemDateDocumented DateEpisodic/ChronicCardiac dysrhythmias (2 sources)Palpitations; Translations: [Palpitations]Onset: 23-76-2390Yirfrkom Deficiency and other anemia (3 sources)Iron deficiency anemia; Translations: [Iron deficiency anemia, unspecified]Onset: 611811-20-4297LmcnjkamMrnzcoasus and other anemia (1 source)Iron deficiency anemia, unspecified; Translations: [Iron deficiency anemia, unspecified]Onset: 87-42-6045StkuzwymNuszpst and fatigue (20 sources)Fatigue; Translations: [Other fatigue]Onset: EpisodicMenstrual disorders (20 sources)Amenorrhea; Translations: [Amenorrhea, unspecified]Onset: 06-23-2022 Resolved: 04-88-4089SmavyeuYtdbm disorders of stomach and duodenum (20 sources)Indigestion; Translations: [Functional dyspepsia]Onset: 01-13-2023 65-12-0150ZwebzcgfQearo female genital disorders (4 sources)Other specified noninflammatory disorders of vagina; Translations: [OTH SPEC NONINFLAMMATORY D/O VAGINA]Onset: 56-96-4195BggjsmeqLwqxf gastrointestinal disorders (20 sources)Heartburn; Translations: [Heartburn]Onset: EpisodicOther liver diseases (4 sources)Elevated liver enzymes level; Translations: [Abnormal levels of other serum enzymes]Onset: 754798-03-4404JmydloxyQayps liver diseases (1 source)Abnormal levels of other serum enzymes; Translations: [Abnormal levels of other serum enzymes]Onset: 55-38-5096YebromvuBncvz skin disorders (3 sources)Acne; Translations: [Acne, unspecified]Onset: 10-17-2023 Resolved: 612459-15-4289JdzbkaplNdxio upper respiratory infections (2 sources)Sore throat symptom; Translations: [Acute pharyngitis, unspecified] Onset: 09-10-2024 Resolved: 431580-58-4921VptdplxpTyjpzfpg codes; unclassified (1 source)Family history of other diseases of the digestive system; Translations: [Family history of other diseases of the digestive system]Onset: 13-76-8898HexmnxziZiusrqy tract infections (20 sources)Recurrent urinary tract infection; Translations: [Urinary tract infection, site not specified]Onset: 11-30-2020 Resolved: 19-37-6515Ofoormbe Results Test NameValueInterpretationReference RangeFacilityUS OB BPP W NON-STRESS on 14-04-1722[place] [place] [address] Ultrasound Report Signed Patient: VINNY DOWNEY MR#: [id number] : 2000 Acct:[id number] Age/Sex: 24 / F ADM Date: 05/21/25 Loc: US Attending Dr: Mukul Foy D.O. Ordering Physician: Mukul Foy D.O. Date of Service: 05/21/25 Procedure(s): US OB BPP w non-stress Accession Number(s): [id number] cc: Mukul Foy D.O.; Ynes Rodriguez NP [place] [address] Patient Name: VINNY DOWNEY MRN: [id number] date: 2000 Sex: F Assigned Patient Location: [facility] Current Patient Location: Accession/Order Number: [id number] Exam Date: 05/21/2025 16:12 Report Date: 05/21/2025 19:56 At the request of: MUKUL FOY DO Procedure: US OB BPP w non-stress Ultrasound biophysical profile INDICATION: Gestational diabetes COMPARISON: 05/07/2025 FINDINGS/IMPRESSION:: Fetus cephalic position. 8/8 score biophysical profile. heart rate 139 beats per minutes. JAMAL 19.1 cm . Impression dictated by: Chevy Moreland M.D. 05/21/2025 7:56 PM Dictation Location: [place] [address] Electronically authenticated by: [id number] Y Date: 05/21/2025 19:56 Dictated By: Chevy Moreland M.D. Signed By: 05/21/251958 DD/ 55 TD/TT: [employer]:[facility]HRad[facility], Radiologist, MD - 05/21/2025 [place] [address] Ultrasound Report Signed Patient: VINNY DOWNEY MR#: [id number] : 2000 Acct:[id number] Age/Sex: 24 / F ADM Date: 05/21/25 Loc: US Attending Dr: Mukul Foy D.O. Ordering Physician: Mukul Foy D.O. Date of Service: 05/21/25 Procedure(s): US OB BPP w non-stress Accession Number(s): [id number] cc: Mukul Foy D.O.; Ynes Rodriguez NP [place] [address] Patient Name: VINNY DOWNEY MRN: [id number] date: 2000 Sex: F Assigned Patient Location: [facility] Current Patient Location: Accession/Order Number: [id number] Exam Date: 05/21/2025 16:12 Report Date: 05/21/2025 19:56 At the request of: MUKUL FOY DO Procedure: US OB BPP w non-stress Ultrasound biophysical profile INDICATION: Gestational diabetes COMPARISON: 05/07/2025 FINDINGS/IMPRESSION:: Fetus cephalic position. 8/8 score biophysical profile. heart rate 139 beats per minutes. JAMAL 19.1 cm . Impression dictated by: Chevy Moreland M.D. 05/21/2025 7:56 PM Dictation Location: [place] [address] Electronically authenticated by: [id number] Y Date: 05/21/2025 19:56 Dictated By: Chevy Moreland M.D. Signed By: 05/21/251958 DD/ 55 TD/TT: [employer]: [employer] HealthcareRadiology Study observation (narrative)NOMS HealthcareUS OB BPP W NON-STRESSOrdered By: Radiologist Radiology on 94-24-8494[facility] Work Phone: Urinalysis macro (dipstick) panel (U)on 05-14-2025 Bilirubin, UANegativeNegative - 4(70) +++ mg/dLNOMS HealthcareBlood, UANegative Negative - 50 Yunior/mcLNOMS HealthcareClarity, UAClearNOMS HealthcareColor, UA YellowNOMS HealthcareGlucose, UANegativeNegative - 2000(110) ++++ mg/dLNOMS HealthcareInterpretation and review of laboratory resultsNormalNOVA Healthcare Ketones, UANegativeNegative - 160(16) ++++ mg/dLNOMS HealthcareLeukocytes, UA NegativeNegative - 500+++ Trip/mcLNOVA HealthcareNitrite, UANegativeNegative - PositiveNOMS HealthcarepH, UA6.55 - 9NOMS HealthcareProtein, UANegativeNegative - 1999(20) ++++ mg/dLNOMS HealthcareSpec Grav, UA1.0101 - 1.03N[facility] Urobilinogen, UA2.00.2 - 12 mg/dLNOMS HealthcareNOMS HealthcareUS OB BPP W NON-STRESSon 27-98[place] [address] Ultrasound Report Signed Patient: VINNY DOWNEY MR#: [id number] : 2000 Acct:[id number] Age/Sex: 24 / F ADM Date: 04/30/25 Loc: US Attending Dr: Mukul Foy D.O. Ordering Physician: Mukul Foy D.O. Date of Service: 04/30/25 Procedure(s): US OB BPP w non-stress Accession Number(s): [id number] cc: Mukul Foy D.O.; Ynes Rodriguez [place] [address] Patient Name: VINNY DOWNEY MRN: [facility]:[id number] date: 2000 Sex: F Assigned Patient Location: [facility] Current Patient Location: Accession/Order Number: [id number] Exam Date: 04/30/2025 15:57 Report Date: 04/30/2025 22:59 At the request of: MUKUL FOY DO Procedure: US OB BPP w non-stress Ultrasound biophysical profile INDICATION: Gestational diabetes COMPARISON: 04/05/2025 FINDINGS/IMPRESSION:: Fetus cephalic position. 8/8 score biophysical profile. heart rate 145 beats per minutes. JAMAL 12.7 cm. Impression dictated by: Chevy Moreland M.D. 04/30/2025 10:59 PM Dictation Location: [place] Electronically authenticated by: [id number] Y Date: 04/30/2025 22:59 Dictated By: Chevy Moreland M.D. Signed By: 04/30/252301 DD/ 58 TD/TT: [employer]:MILYHRadiology, Radiologist, - 04/30/2025 [place] [address] Ultrasound Report Signed Patient: VINYN DOWNEY MR#: [id number] : 2000 Acct:[id number] Age/Sex: 24 / F ADM Date: 04/30/25 Loc: US Attending Dr: Mukul Foy D.O. Ordering Physician: Mukul Foy D.O. Date of Service: 04/30/25 Procedure(s): US OB BPP w non-stress Accession Number(s): [id number] cc: Mukul Foy D.O.; Ynes Rodriguez SAW SETTER [place] [address] Patient Name: VINNY DOWNEY MRN: [facility]:[id number] date: 2000 Sex: F Assigned Patient Location: [facility] Current Patient Location: Accession/Order Number: [id number] Exam Date: 04/30/2025 15:57 Report Date: 04/30/2025 22:59 At the request of: MUKUL FOY DO Procedure: US OB BPP w non-stress Ultrasound biophysical profile INDICATION: Gestational diabetes COMPARISON: 04/05/2025 FINDINGS/IMPRESSION:: Fetus cephalic position. 02/28 score biophysical profile. heart rate 145 beats per minutes. JAMAL 12.7 cm. Impression dictated by: Chevy Moreland M.D. 04/30/2025 10:59 PM Dictation Location: [employer] Electronically authenticated by: [id number] Y Date: 04/30/2025 22:59 Dictated By: Chevy Moreland M.D. Signed By: 04/30/25 3380 DD/ 068 TD/TT: President Finance Company: DIANE HealthcareRadiology Study observation (narrative)DIANE HealthcareUS OB BPP W NON-STRESSOrdered By: Radiologist Radiology on 18-04-2667[facility] Work Phone: Urinalysis macro (dipstick) panel [...] mg/dLNOMS HealthcareNOMS HealthcareUrinalysis macro (dipstick) panel (U)on 51-21-9426Ihaazjjhw, UANegativeNegative - 4(70) +++ mg/dL NOMS HealthcareBlood, UANegativeNegative - 50 Yunior/mcLNOMS HealthcareClarity, UA ClearNOMS HealthcareColor, UAYellowNOMS HealthcareGlucose, UANegativeNegative - 2000(110) ++++ mg/dLNOMS HealthcareInterpretation and review of laboratory resultsNormalNOMS HealthcareKetones, UANegativeNegative - 160(16) ++++ mg/dLNOMS HealthcareLeukocytes, UANegativeNegative - 500+++ Trip/mcLNOMS HealthcareNitrite, UANegativeNegative - PositiveNOMS HealthcarepH, UA6.55 - 9NOMS Healthcare Protein, UANegativeNegative - 1999(20) ++++ mg/dLNOVA HealthcareSpec Grav, UA 1.0051 - 1.03NOVA HealthcareUrobilinogen, UA0.20.2 - 12 mg/dLNOMissouri Southern Healthcare HealthcareALL CBC WITH AUTO DIFFon 41-50-3328QFPKMXQQX ABSOLUTE NUVL6DJZO HealthcareBasophils/100 WBC (Bld)0.2 %0.2 - 2.0 %NOMPershing Memorial HospitalEosinophils/100 WBC (Bld)1.1 %0.9 - 7.0 %[facility] HospitalErythrocyte distribution width (RBC) [Ratio]12.8 %11.0 - 15.0 %NOMPershing Memorial HospitalHematocrit (Bld) [Volume fraction]30.7 %Low36.0 - 48.0 %[facility] HospitalHemoglobin (Bld) [Mass/Vol]10.3 g/dLLow12.0 - 16.0 g/dLBarton County Memorial HospitalIMMATURE GRANULOCYTES ABS AUTO0.04HighBarton County Memorial Hospital Immature granulocytes/100 WBC (Bld)0.4 %0.0 - 0.5 %[facility] HospitalInterpretation and review of laboratory resultsAbnormalNOMadison Medical CenterLYMPHOCYTES ABSOLUTE AUTO1.9NOMS [facility] Osteopathic ClinicLymphocytes/100 WBC (Bld)17.1 %Low20.5 - 60.0 %[facility] HospitalH (RBC) [Entitic mass]29.7 pg26.7 - 34.0 pgFitzgibbon HospitalHC (RBC) [Mass/Vol]33.6 g/dL29.9 - 35.2 g/dLFitzgibbon HospitalV (RBC) [Entitic vol]88.5 fL 81.0 - 99.0 fLBarton County Memorial HospitalMONOCYTES ABSOLUTE AUTO0.7NOMS [facility] Monocytes/100 WBC (Bld)6.5 %1.7 - 12.0 %[facility] HospitalNEUTROPHILS ABSOLUTE AUTO 8.2HighNOMadison Medical CenterNeutrophils/100 WBC (Bld)74.7 %43.0 - 75.0 %[facility] HospitalPlatelet mean volume (Bld) [Entitic vol]8.7 fLLow9.5 - 13.5 fLBarton County Memorial HospitalTB EO #0.1NOMS [facility] Osteopathic ClinicTBH MLN885OJRD HealthcareTB RBC3.47LowNOMS HealthcareTBH [id number] HealthcareCLINISYNCNOMS HealthcareUS OB GROWTHon 48-75-2348Gkj [address] [address] Ultrasound Report Signed Patient: VINNY DOWNEY MR#: [id number] : 2000 Acct:[id number] Age/Sex: 24 / F ADM Date: 04/05/25 Loc: US Attending Dr: Regina Barton Ordering Physician: Regina Barton Date of Service: 04/05/25 Procedure(s): US OB growth Accession Number(s): [id number] cc: Regina Barton; Physician,Non-Staff Khadar The [address] [address] Patient Name: VINNY DOWNEY MRN: [id number] date: 2000 Sex: F Assigned Patient Location: US Current Patient Location: LAB Accession/Order Number: [id number] Exam Date: 04/05/2025 10:00 Report Date: 04/05/2025 [...] 12:08 PM Dictation Location: [facility] [employer] Electronically authenticated by: [id number] Y Date: 04/05/2025 12:08 Dictated By: Daryn Peraza D.O. Signed By: 04/05/25 1211 DD/ 1208 TD/TT: President Finance Company:JAMILAHadiologvicki, Radiologist, - 04/05/[address] [place] [address] Ultrasound Report Signed Patient: VINNY DOWNEY MR#: [id number] : 2000 Acct:[id number] Age/Sex: 24 / F ADM Date: 04/05/25 Loc: US Attending Dr: Regina Barton Ordering Physician: Regina Barton Date of Service: 04/05/25 Procedure(s): US OB growth Accession Number(s): [id number] cc: Regina Barton; Physician,Non-Staff [address] [address] Patient Name: VINNY DOWNEY MRN: [id number] date: 2000 Sex: F Assigned Patient Location: US Current Patient Location: LAB Accession/Order Number: [id number] Exam Date: 04/05/2025 10:00 Report Date: 04/05/2025 [...] Peraza M.D. 04/05/2025 12:08 PM Dictation Location: [employer] Electronically authenticated by: [id number] Y Date: 04/05/2025 12:08 Dictated By: Daryn Peraza D.O. Signed By: 04/05/25 1211 DD/ 1208 TD/TT: President Finance Company: DIANE HealthcareRadiology Study observation (narrative)DIANE Armas OB GROWTHOrdered By: Radiologist Radiology on 08-10-2014H[facility] Work Phone: Urinalysis macro (dipstick) panel (U)on 04-03-2025 Bilirubin, UANegativeNegative - 4(70) +++ mg/dLNOMS HealthcareBlood, UANegative Negative - 50 Yunior/mcLNOMS HealthcareClarity, UAClearNOMS HealthcareColor, UA YellowNOMS HealthcareGlucose, UANegativeNegative - 1999(110) ++++ mg/dLNOMS HealthcareInterpretation and review of laboratory resultsAbnormalNOVA Healthcare Ketones, UANegativeNegative - 160(16) ++++ mg/dLNOMS HealthcareLeukocytes, UA PositiveNegative - 500+++ Trip/mcLNOMS HealthcareNitrite, UANegativeNegative - PositiveNOMS HealthcarepH, UA6.55 - 9NOMS HealthcareProtein, UANegativeNegative - 1999(20) ++++ mg/dLNOMS HealthcareSpec Grav, UA1.011 - 1.03NOMS Healthcare Urobilinogen, UA1.00.2 - 12 mg/dLNOMS HealthcareNOMS HealthcareUrinalysis macro (dipstick) panel (U)on 48-53-9073Tqhpnkqdb, UANegativeNegative - 4(70) +++ mg/dL NOMS HealthcareBlood, UANegativeNegative - 50 Yunior/mcLNOMS HealthcareClarity, UA ClearNOMS HealthcareColor, UAYellowNOMS HealthcareGlucose, UANegativeNegative - 1999(110) ++++ mg/dLNOMS HealthcareInterpretation and review of laboratory resultsNormalNOVA HealthcareKetones, UANegativeNegative - 160(16) ++++ mg/dLNOMS HealthcareLeukocytes, UANegativeNegative - 500+++ Trip/mcLNOMS HealthcareNitrite, UANegativeNegative - PositiveNOMS HealthcarepH, UA6.55 - 9NOMS Healthcare Protein, UANegativeNegative - 2000(20) ++++ mg/dLNOMS HealthcareSpec Grav, UA 1.011 - 1.03NOMS HealthcareUrobilinogen, UA1.00.2 - 12 mg/dLNOMS HealthcareNOMS HealthcareUrinalysis macro (dipstick) panel (U)on 40-50-6747Auukbqayi, UA NegativeNegative - 4(70) +++ mg/dLNOMS HealthcareBlood, UANegativeNegative - 50 Yunior/mcLNOMS HealthcareClarity, UAClearNOMS HealthcareColor, UAYellowNOVA HealthcareGlucose, UANegativeNegative - 2000(110) ++++ mg/dLNOVA Healthcare Interpretation and review of laboratory resultsNormalNOVA HealthcareKetones, UA NegativeNegative - 160(16) ++++ mg/dLBarton County Memorial HospitalLeukocytes, UANegative Negative - 500+++ Trip/mcLNOVA HealthcareNitrite, UANegativeNegative - Positive NOMS HealthcarepH, UA65 - 9NOVA HealthcareProtein, UANegativeNegative - 2000(20) ++++ mg/dLNOVA HealthcareSpec Grav, UA1.011 - 1.03NOVA HealthcareUrobilinogen, UA0.20.2 - 12 mg/dLNOMadison Medical CenterNOVA HealthcareUS OB 14+ WEEKS ANATOMY SCANon 42-47-0733EK OB 14+ WEEKS ANATOMY SCANFINDINGS: A single, [...] Delivery: 06/23/25 Gestational Age as of 01/15/2025: 73e4cGmzvstishq macro (dipstick) panel (U)on 41-87-8067Ozearefxs, UANegativeNegative - 4(70) +++ mg/dLNOMS HealthcareBlood, UANegativeNegative - 50 Yunior/mcLNOMS HealthcareClarity, UAClearNOMS Healthcare Color, UAYellowNOMS HealthcareGlucose, UANegativeNegative - 2000(110) ++++ mg/dL NOMS HealthcareInterpretation and review of laboratory resultsNormalNOMS HealthcareKetones, UANegativeNegative - 160(16) ++++ mg/dLNOVA Healthcare Leukocytes, UANegativeNegative - 500+++ Trip/mcLNOMS HealthcareNitrite, UA NegativeNegative - PositiveNOMS HealthcarepH, UA6.55 - 9NOMS HealthcareProtein, UANegativeNegative - 2000(20) ++++ mg/dLNOMS HealthcareSpec Grav, UA1.0251 - 1.03NOMS HealthcareUrobilinogen, UA1.00.2 - 12 mg/dLNOVA HealthcareNOMS HealthcareRECURRENT VAGINITIS (HTRX)on 19-03-0645HVEOHTHIS RTKYSMN7TUDI HealthcareATOPOBIUM VAGINAENot detectedNOMS HealthcareBVAB 2,3 (BACTERIAL VAGINOSIS ASSOCIATED BACTERIA 2, 3); MOBILUNCUS SMW9NQII HealthcareBVAB 2,3 (BACTERIAL VAGINOSIS ASSOCIATED BACTERIA 2, 3); MOBILUNCUS SPPNot detectedNOMS HealthcareCANDIDA ALBICANS, PARAPSILOSIS, KHKSFXMCYQ3HBUR HealthcareCANDIDA ALBICANS, PARAPSILOSIS, TROPICALISNot detectedNOMS HealthcareCANDIDA GLABRATA0 NOMS HealthcareCANDIDA GLABRATANot detectedNOMS HealthcareCANDIDA QXLXJM8QQLV HealthcareCANDIDA KRUSEINot detectedNOMS HealthcareCHLAMYDIA CJVCBDKYBXO6NZLZ HealthcareCHLAMYDIA TRACHOMATISNot detectedNOMS HealthcareGARDNERELLA VAGINALIS0 NOMS HealthcareGARDNERELLA VAGINALISNot detectedNOMS HealthcareMEGASPHAERA (TYPES 1, 2)0NOMS HealthcareMEGASPHAERA (TYPES 1, 2)Not detectedNOMS Healthcare MYCOPLASMA RTZENESYUM6YXSS HealthcareMYCOPLASMA GENITALIUMNot detectedNOMS HealthcareNEISSERIA GYPJPASCUXR4ADUO HealthcareNEISSERIA GONORRHOEAENot detected NOMS HealthcareTRICHOMONAS QNUIBSPEM3HQHD HealthcareTRICHOMONAS VAGINALISNot detectedNOMS HealthcareNOMS HealthcareCBCon 65-31-9831Nzxgybsjhqf distribution width (RBC) [Ratio]12.6 %11.8 - 14.4 %[facility] Francis Medical CenterHematocrit (Bld) [Volume fraction]35.4 %Low36.3 - 47.1 %[facility] Medical CenterHemoglobin (Bld) [Mass/Vol]11.7 g/dLLow11.9 - 15.1 g/dLBon St. Francis HospitalInterpretation and review of laboratory resultsAbnormalBon [facility] HospitalH (RBC) [Entitic mass]30 pg25.2 - 33.5 pgTwin County Regional HealthcareHC (RBC) [Mass/Vol]33.1 g/dL 28.4 - 34.8 g/dLBon [facility] Methodist HospitalV (RBC) [Entitic vol]90.8 fL82.6 - 102.[address] Francis Medical CenterNucleated RBC/100 WBC (Bld) [Ratio]0 %0.[address] Francis Medical CenterPlatelet mean volume (Bld) [Entitic vol]8.7 fL8.1 - 13.[address] Francis Medical CenterPlatelets (Bld) [#/Vol]316 10*3/uLBon St. Francis HospitalRBC (Bld) [#/Vol]3.9 10*6/uLLow3.95 - 5.11 m/[facility] CarePlex HospitalWBC other (Bld) [#/Vol]10.2Bon [facility] HospitalErythrocyte distribution width (RBC) [Ratio]12.6 %Fhxhlb43.8-14.4[facility]aritan HospitalComment on above:Performed By: #### GLUSC, CBC #### [facility] [address] [place] [address] [place] [address] Rehab Aide: Yelena Greco MDHematocrit (Bld) [Volume fraction]35.4 %Low 36.3-47.1MercSaint Mary's HospitalComment on above:Performed By: #### GLUSC, CBC #### [facility] [address] [place] [address] Rehab Aide: Yelena Greco MDHemoglobin (Bld) [Mass/Vol]11.7 g/dLLow11.9-15.1 [facility] HospitalComment on above:Performed By: #### GLUSILVINO, CBC #### [address] [place], [place] [address] Rehab Aide: YULY rAandaCH (RBC) [Entitic mass]30.0 szYwgvsa18.2-33.5 [facility] HospitalComment on above:Performed By: #### GLUSILVINO, CBC #### [address] [place] [address] Rehab Aide: TY ArandaC (RBC) [Mass/Vol]33.1 g/vBBhqcyn49.4-34.8[facility] HospitalComment on above:Performed By: #### YESSICA, CBC #### [address] [place], [facility]83 Rehab Aide: YULY ArandaCV (RBC) [Entitic vol]90.8 sETaeuka35.6-102.9 [facility] HospitalComment on above:Performed By: #### GLUSILVINO, CBC #### [address] [place], [place] [address] Rehab Aide: Yelena Greco MDNRBC Automated0.0 per 100 WBCNormal0.0[facility]aritan HospitalComment on above:Performed By: #### GLUSC, CBC #### [address] [place] [address] Rehab Aide: Sobeida Aranda mean volume (Bld) [Entitic vol]8.7 fL Normal8.1-13.5[facility] HospitalComment on above:Performed By: #### GLUSILVINO, CBC #### [address] [place] [address] Rehab Aide: Richie ArandaCar[facility]) [#/Vol]316 10*3/lTJvfmfv949-190 [facility] HospitalComment on above:Performed By: #### GLUSC, CBC #### [address] [place], [place] [address] Rehab Aide: BILL Aranda ([facility]) [#/Vol]3.90 10*6/uLLow3.95-5.11[facility] HospitalComment on above:Performed By: #### GLUSC, CBC #### [address] [place], [place] [address] Rehab Aide: LANEY Aranda ([facility]) [#/Vol]10.2 10*3/uLNormal3.5-11.3MMercy Health West HospitalComment on above:Performed By: #### GLUSILVINO, CBC #### [address] [place], [place] [address] Rehab Aide: Yelena Greco MDGlucose Challenge Gestationalon 50-36-2374SRB ADMN GlucolaBon St. Francis HospitalGlucose 1 Hr post 50 g glucose PO [Mass/Vol]184 mg/kYWknn42 - 135 mg/dLBVirginia Hospital CenterInterpretation and review of laboratory resultsAbnormalBon St. Francis HospitalBon St[facility] Hospital Glucose Toya Scr 50gon 42-31-8811Dxdvtoi [Mass/Vol]184 mg/yLMrgv96-108JcqxpGood Samaritan HospitalComment on above:Performed By: #### GLUSC, CBC #### [address] [place], [place] [address] Rehab Aide: Yelena Greco MDGlu Administered viaGlucolaNormSelect Medical Cleveland Clinic Rehabilitation Hospital, Edwin ShawComment on above:Performed By: #### GLUSC, CBC #### [address] [place] [address] Rehab Aide: Yelena Greco MDUS OB LESS THAN 14 WEEKS SINGLE OR FIRST GESTATION on 32-48-0050DNTDFVBOBFE: FIRST TRIMESTER OBSTETRIC ULTRASOUND 12/20/2024 TECHNIQUE: 1. [...] by: Noah Rivero MD 12/23/24 Final result [facility] HospitalRadiology Study observation (narrative)[facility] HospitalUS OB LESS THAN 14 WEEKS SINGLE OR FIRST GESTATIONOrdered By: Radiologist Radiology on 68-97-6409[employer] Work Phone: US OB LESS THAN 14 WEEKS SINGLE OR FIRST GESTATION W DOPPLERon 79-18-1417XN OB LESS THAN 14 WEEKS SINGLE OR [...] by: Noah Rivero MD 12/23/24 Final resultNormalMercy Watson HospitalUrinalysis macro (dipstick) panel (U)on 11-75-1557Acsnncdba, UANegativeNegative - 4(70) +++ mg/dLNOMS HealthcareBlood, UAPositiveNegative - 50 Yunior/mcLNOMS HealthcareClarity, UAClearNOMS Healthcare Color, UAYellowNOMS HealthcareGlucose, UANegativeNegative - 2000(110) ++++ mg/dL NOMS HealthcareInterpretation and review of laboratory resultsAbnormalNOVA HealthcareKetones, UANegativeNegative - 160(16) ++++ mg/dLNOMS Healthcare Leukocytes, UANegativeNegative - 500+++ Trip/mcLNOVA HealthcareNitrite, UA NegativeNegative - PositiveNOMS HealthcarepH, UA75 - 9NOMS HealthcareProtein, UA NegativeNegative - 2000(20) ++++ mg/dLNOMS HealthcareSpec Grav, UA1.011 - 1.03 NOMS HealthcareUrobilinogen, UA1.00.2 - 12 mg/dLNOMS HealthcareNOVA Healthcare HCG ( test) Ql (U)on 90-06-9358Noaqbhtfxmhlmp and review of laboratory resultsAbnormalVALLEY VIEW MEDICAL [facility]ENTER HealthcarePreg Test, UrPositiveNegativeNOMS HealthcareNOVA HealthcareUS OB TRANSVAGINALon 87-21-9106NS OB TRANSVAGINALEXAM: US OB TRANSVAGINAL HISTORY: Dating. [...] II, MD, PHD at 15-Nov-2024 09:44:32 AM [facility] TeleradiologyNormalNot AvailableComment on above:Order Comment: US OB TRANSVAGINAL No LMP recorded.Urinalysis macro (dipstick) panel (U)on 84-12-6447Vkjgshzax, UA NegativeNegative - 4(70) +++ mg/dLNOMS HealthcareBlood, UANegativeNegative - 50 Yunior/mcLNOVA HealthcareClarity, UAClearNOMS HealthcareColor, UAYellowNOMS HealthcareGlucose, UANegativeNegative - 1999(110) ++++ mg/dLNOMS Healthcare Interpretation and review of laboratory resultsNormalNOMS HealthcareKetones, UA NegativeNegative - 160(16) ++++ mg/dLNOMS HealthcareLeukocytes, UANegative Negative - 500+++ Trip/mcLNOMS HealthcareNitrite, UANegativeNegative - Positive NOMS HealthcarepH, UA6.55 - 9NOMS HealthcareProtein, UANegativeNegative - 1999(20) ++++ mg/dLNOMS HealthcareSpec Grav, UA1.0051 - 1.03N[facility] Healthcare Urobilinogen, UA0.20.2 - 12 mg/dLNOMS HealthcareNOMS HealthcareIGP,APTIMA HPV,AGE GDLNon 98-72-9811YWI GDLN ACOG TESTINGNote.NOMS HealthcareComment on above:TESTS RESULT FLAG UNITS REF RANGE LAB Clinician Provided Cytology Information Source.............Cervix;Endocervix No. of containers..01 ThinPrep Vial Age Mack DALE Addie... FLAG LEGEND: L-Low Normal,H-High Normal,LL-Alert Low,HH-Alert High <-Panic Low,>-Panic High,A-Abnormal,AA-Critical Abnormal Performed at: 01 =[facility] [address] [place] [address] Anastasiya Moses MD, IGP, RFX APTIMA HPV ASCUNote.NOMS HealthcareComment on above:TESTS RESULT FLAG UNITS REF RANGE LAB DIAGNOSIS: 02 NEGATIVE FOR INTRAEPITHELIAL LESION OR MALIGNANCY. Specimen adequacy: 02 Satisfactory for evaluation. Endocervical and/or squamous metaplastic cells (endocervical component) are present. Performed by: Oswald Galaviz, [employer] Trader ([facility]) . 02 Note: Note [...] Low,>-Panic High,A-Abnormal,AA-Critical Abnormal Performed at: [address] [facility] [address] [address] Anastasiya Moses MD, Performed at: =G - [facility] [address] [id number] Rehab Aide: Anastasiya Moses MD, Phone: [phone] Performed at: - [facility] [id number] Rehab Aide: Anastasiya Moses MD, Phone: [phone] BRUSH-SPATULA CERVIX ENDOCERVIX CLINISYNCNOMS Mari[facility] Osteopathic ClinicComp Metabolic Profon 79-58-0945Wiacgra [Mass/Vol]4.6 g/dLNormal3.5-5.2[facility]. Sinai HospitalComment on above:Performed By: #### CP #### [address] [place] [address] Rehab Aide: Yelena Greco MDAlbumin/Glob Ratio1.4Sjnqzm1.0-2.5Mer[facility]. Sinai HospitalComment on above:Performed By: #### CP #### [address] [place], [place] [address] Rehab Aide: Giselle Aranda Phos71 U/CVaqkdp47-416MjthgGood Samaritan HospitalComment on above:Performed By: #### CP #### [address] [place], [place] [address] Rehab Aide: Yelena Greco MDALT [Catalytic activity/Vol]41 U/LObbq90-06Ybihu Tiffin HospitalComment on above:Performed By: #### CP #### [address] [place] [address] Rehab Aide: Yelena Greco MDAnion gap [Moles/Vol]10 mmol/LNormal9-16Good Samaritan HospitalComment on above:Performed By: #### CP #### [address] [place] [address] Rehab Aide: Yelena Greco MDAST [Catalytic activity/Vol]34 U/MYmczxx17-99Hnatm Tiffin HospitalComment on above:Performed By: #### CP #### [address] [place] [address] Rehab Aide: Yelena Greco MDBilirubin [Mass/Vol]0.4 mg/dLNormal0.00-1.20[facility]itan HospitalComment on above:Performed By: #### CP #### [address] [place] [address] Rehab Aide: Yelena Greco MDBUN/CRE Yqeor15Whbg0-97Kyeyc [facility] Comment on above:Performed By: #### CP #### [address] [place], [place] [address]83 Rehab Aide: Yelena Greco MDCalcium [Mass/Vol]9.4 mg/dLNormal8.6-10.4[facility] HospitalComment on above:Performed By: #### CP #### [address] [place] [address] Rehab Aide: NATALIO Arandahloride [Moles/Vol]103 mmol/USinexb13-692PfcqrGood Samaritan HospitalComment on above:Performed By: #### CP #### [address] [place] [address] Rehab Aide: Yelena Greco MDCO2 [Moles/Vol]25 mmol/NSrstsy06-69JtajaGood Samaritan HospitalComment on above:Performed By: #### CP #### [address] [place], [facility]83 Rehab Aide: NATALIO Arandareatinine [Mass/Vol]0.6 mg/dLNormal0.50-0.90[facility]itan HospitalComment on above:Performed By: #### CP #### [address] [place], [facility]83 Rehab Aide: Yelena Greco MDGFR/1.73 sq M.predicted among non-blacks MDRD (S/P/Bld) [Vol rate/Area]mL/min/{1.73_m2}Normal>60Good Samaritan HospitalComment on above:Result Comment: These results are [...] renal tubular secretion.Performed By: #### CP #### [address] [place] [address] Rehab Aide: Yelena Greco MDGlucose [Mass/Vol]83 mg/vXZmmvyp17-34SqfkgMercy Health West HospitalComment on above:Performed By: #### CP #### [address] [place], [place] [address] Rehab Aide: ROLANDO Arandaotassium [Moles/Vol]4.6 mmol/LNormal3.7-5.3Mercy Watson HospitalComment on above:Performed By: #### CP #### [address] [place], [place] [address]83 Rehab Aide: Yelena Greco MDProtein [Mass/Vol]7.8 g/dLNormal6.6-8.7MerTrinity Health System East Campus HospitalComment on above:Performed By: #### CP #### [address] [place], [place] [address] Rehab Aide: Yelena Greco MDSodium [Moles/Vol]138 mmol/YKegnfy164-417Xgswi [facility]iffin HospitalComment on above:Performed By: #### CP #### [address] [place], [place] [address] Rehab Aide: Yelena Greco MDUrea nitrogen [Mass/Vol]13 mg/dLNormal6-20[facility] Samaritan HospitalComment on above:Performed By: #### CP #### [address] [place], [place] [address] Rehab Aide: NATALIO Arandaomprehensive Metabolic Panelon 25-32-9389Ztgqimi [Mass/Vol]4.6 g/dL3.5 - 5.2 g/dLBon St. Francis HospitalAlbumin/Globulin [Mass ratio]1.5 {ratio}1.0 - 2.5Bon [facility] HealthALP [Catalytic activity/Vol]71 U/L35 - 104 U/LBon [facility] HealthALT [Catalytic activity/Vol]41 U/LHigh10 - 35 U/LBon St. Francis HospitalAnion gap [Moles/Vol]10 mmol/L9 - 16 mmol/LBon [facility] HealthAST [Catalytic activity/Vol]34 U/L10 - 35 U/LBon St. Francis HospitalBilirubin [Mass/Vol]0.4 mg/dL0.00 - 1.20 mg/dLBon St. Francis HospitalCalcium [Mass/Vol]9.4 mg/dL8.6 - 10.4 mg/dLBon [facility] Chloride [Moles/Vol]103 mmol/L98 - 107 mmol/LBon St. Francis HospitalCO2 [Moles/Vol]25 mmol/L20 - 31 mmol/LBon St. Francis HospitalCreatinine [Mass/Vol] 0.6 mg/dL0.50 - 0.90 mg/dLBon St. Francis HospitalEst, Glom Filt Rate- PINFBon St. Francis HospitalComment on above: These results are not [...] secretion. Glucose [Mass/Vol]83 mg/dL74 - 99 mg/dLBon St. Francis HospitalInterpretation and review of laboratory resultsAbnormalBon Secours St. Francis Medical CenterPotassium [Moles/Vol]4.6 mmol/L3.7 - 5.3 mmol/LBon St. Francis HospitalProtein [Mass/Vol] 7.8 g/dL6.6 - 8.7 g/dLBon St. Francis HospitalSodium [Moles/Vol]138 mmol/L136 - 145 mmol/LBon St. Francis HospitalUrea nitrogen [Mass/Vol]13 mg/dL6 - 20 mg/dL [facility] Francis Medical CenterUrea nitrogen/Creatinine [Mass ratio]22 mg/mgHigh9 - 20 [facility] CenterLipid Panelon 05-20-2024 Cholesterol [Mass/Vol]152 mg/dL0 - 199 mg/dLBon St. Francis HospitalComment on above: Cholesterol Guidelines: <200 Desirable 200-240 Borderline >240 Undesirable Cholesterol in HDL [Mass/Vol]33 mg/dLLow40 - PINF mg/dLBon [facility]. [facility] Comment on above: HDL Guidelines: <40 Undesirable 40-59 Borderline >59 Desirable Cholesterol in LDL [Mass/Vol]88 mg/dL0 - 100 mg/dLBon [facility] [employer] Comment on above: LDL Guidelines: <100 Desirable 100-129 Near to/above Desirable 130-159 Borderline >159 Undesirable Direct (measured) LDL and calculated LDL are not interchangeable tests. Cholesterol in VLDL [Mass/Vol]31 mg/dLBon [facility] [employer] Cholesterol.total/Cholesterol in HDL [Mass ratio]5.0 {ratio}[facility] Francis Medical CenterInterpretation and review of laboratory resultsAbnormalBon [facility] Industrial ToysTriglyceride [Mass/Vol]156 mg/dLHighNINF - 150 mg/dLBon [facility] CenterPinevio Lima City HospitalComment on above: Triglyceride Guidelines: <150 Desirable 150-199 Borderline 200-499 High >499 Very high Based on AHA Guidelines for fasting triglyceride, April 2012. [facility] HospitalAmimonHealthSouth Medical CenterLipid Profileon 02-08-0279Bbrjsfpnixa [Mass/Vol]152 mg/dLNormal0-199Good Samaritan HospitalComment on above:Result Comment: Cholesterol Guidelines: <200 Desirable 200-240 Borderline >240 UndesirablePerformed By: #### LIPR #### [employer] [address] [place] [id number] Rehab Aide: NATALIO Tavarezholesterol in HDL [Mass/Vol]33 mg/dLLow>40Good Samaritan HospitalComment on above:Result Comment: HDL Guidelines: <40 Undesirable 40-59 Borderline >59 DesirablePerformed By: #### LIPR #### [employer] [address] [place] [address] [id number] Rehab Aide: NATALIO Tavarezholesterol in LDL [Mass/Vol]88 mg/dLNormal0-100 [facility] HospitalComment on above:Result Comment: LDL Guidelines: <100 Desirable 100-129 Near to/above Desirable 130-159 Borderline >159 Undesirable Direct (measured) LDL and calculated LDL are not interchangeable tests.Performed By: #### LIPR #### [facility] [address] [place] [address] Rehab Aide: NATALIO Tavarezholesterol in VLDL [Mass/Vol]31 mg/dLNormal [facility] HospitalComment on above:Performed By: #### LIPR #### [facility] [address] [place] [address] Rehab Aide: NATALIO Tavarezholesterol.total/Cholesterol in HDL [Mass ratio]5.0 {ratio}NormalGood Samaritan HospitalComment on above:Performed By: #### LIPR #### [facility] [address] [place], [place] [id number] Rehab Aide: Osvaldo Santamaria MDTriglyceride [Mass/Vol]156 mg/dLHigh<150[facility]itan HospitalComment on above:Result Comment: Triglyceride Guidelines: <150 Desirable 150-199 Borderline 200-499 High >499 Very high Based on AHA Guidelines for fasting triglyceride, April 2012.Performed By: #### LIPR #### [facility] [address] [place] [address] Rehab Aide: Osvaldo Santamaria MDUS GALLBLADDER RUQon 95-95-5190LK GALLBLADDER RUQEXAMINATION: RIGHT UPPER QUADRANT ULTRASOUND 03/06/2024 9:58 am COMPARISON: None. HISTORY: ORDERING SYSTEM PROVIDED HISTORY: Elevated liver enzymes TECHNOLOGIST PROVIDED HISTORY: This procedure can be scheduled via [facility]. elevated liver enzymes, fam hx gallbladder disease. [...] Signed by: Hernandez Stewart MD 03/06/24 Final resultNormalGood Samaritan HospitalCBCon 66-54-7017Kdzsjkyabzc distribution width (RBC) [Ratio]12.4 %Nvxatb87.8-14.4[facility] HospitalComment on above: Performed By: #### FEBC #### [facility] [address] [place] [address] Rehab Aide: Osvaldo Santamaria MD #### CBC, CP #### [address] [place], [place] [phone] Rehab Aide: Yelena Greco MDHematocrit (Bld) [Volume fraction]40.2 %Normal 36.3-47.1MMercy Health West HospitalComment on above:Performed By: #### FEBC #### [address] [address] Rehab Aide: Osvaldo Santamaria MD #### CBC, CP #### [address] [place] [address]83 Rehab Aide: Yelena Greco MDHemoglobin (Bld) [Mass/Vol]13.5 g/dLNormal 11.9-15.1MMercy Health West HospitalComment on above:Performed By: #### FEBC #### [address] [place] [address] Rehab Aide: Osvaldo Santamaria MD #### CBC, CP #### [address] [place] [address]2883 Rehab Aide: YULY ArandaCH (RBC) [Entitic mass]29.8 gfIepulh91.2-33.5 [facility] HospitalComment on above:Performed By: #### FEBC #### [facility] [address] [place] [address] Rehab Aide: Osvaldo Santamaria MD #### CBC, CP #### [address] [place] [address] Rehab Aide: TY ArandaC (RBC) [Mass/Vol]33.6 g/cRPjmbvv91.4-34.8[facility] on above:Performed By: #### FEBC #### [address] [place] [address] Rehab Aide: Osvaldo Santamaria MD #### CBC, CP #### [address] [place] [address] Rehab Aide: YULY ArandaCV (RBC) [Entitic vol]88.7 eTBwgfxt52.6-102.9 [facility] HospitalComment on above:Performed By: #### FEBC #### [address] [address] Rehab Aide: Osvaldo Santamaria MD #### CBC, CP #### [address] [place], [place] 2919283 Rehab Aide: Yelena Greco MDNRBC Automated0.0 per 100 WBCNormal0.0[facility] on above:Performed By: #### FEBC #### [address] [address] Rehab Aide: Osvaldo Santamaria MD #### CBC, CP #### [address] [place] [address] Rehab Aide: Sobeida Aranda mean volume (Bld) [Entitic vol]8.5 fL Normal8.1-13.5[facility] on above:Performed By: #### FEBC #### [address] [address] Rehab Aide: Osvaldo Santamaria MD #### CBC, CP #### [address] [place] [address] Rehab Aide: Lorena Arandatezahira (Bld) [#/Vol]309 10*3/oIGynwgj331-902 [facility] HospitalComment on above:Performed By: #### FEBC #### [address] [place] [address] Rehab Aide: Osvaldo Santamaria MD #### CBC, CP #### [address] [place], [place] 8042583 Rehab Aide: BILL Aranda ([facility]) [#/Vol]4.53 10*6/uLNormal3.95-5.11MerTrinity Health System East Campus HospitalComment on above:Performed By: #### FEBC #### [address] [address] Rehab Aide: Osvaldo Santamaria MD #### CBC, CP #### [address] [place], [place] 0994383 Rehab Aide: Yelena Greco [facility] ([facility] [#/Vol]6.5 10*3/uLNormal3.5-11.3Mwilson healthy Watson HospitalComment on above:Performed By: #### FEBC #### [address] [address] Rehab Aide: Osvaldo Santamaria MD #### CBC, CP #### [address] [place], [place] 3653983 Rehab Aide: NATALIO Arandaheber valley [facility] Metabolic Profon 21-61-7787Tbsvtvk [Mass/Vol] 4.5 g/dLNormal3.5-5.2Mwilson healthy Watson HospitalComment on above:Performed By: #### FEBC #### [address] [address] Rehab Aide: Osvaldo Santamaria MD #### CBC, CP #### [address] [place], [place] 2242983 Rehab Aide: Yelena Greco MDAlbumin/Glob Ratio1.0Txhwla9.0-2.5[facility] HospitalComment on above:Performed By: #### FEBC #### [address] [address] Rehab Aide: Osvaldo Santamaria MD #### CBC, CP #### [address] [place], [place] 7365483 Rehab Aide: Giselle Aranda Phos74 U/JJdguom76-190QapekGood Samaritan HospitalComment on above:Performed By: #### FEBC #### [address] [address] Rehab Aide: Osvaldo Santamaria MD #### CBC, CP #### [address] [place], [place] 2872083 Rehab Aide: Yelena Greco MDALT [Catalytic activity/Vol]61 U/LHigh5-33[facility] HospitalComment on above:Performed By: #### FEBC #### [address] [address] Rehab Aide: Osvaldo Santamaria MD #### CBC, CP #### [address] [place], [place] 8174483 Rehab Aide: Lindsay Aranda gap [Moles/Vol]8 mmol/LLow9-17[facility] HospitalComment on above:Performed By: #### FEBC #### [address] [address] Rehab Aide: Osvaldo Santamarai MD #### CBC, CP #### [address] [place], [place] 2984983 Rehab Aide: Yelena Greco MDAST [Catalytic activity/Vol]43 U/LHigh<32[facility] HospitalComment on above:Performed By: #### FEBC #### [address] [address] Rehab Aide: Osvaldo Santamaria MD #### CBC, CP #### [address] [place], [place] 2449683 Rehab Aide: Yelena Greco MDBilirubin [Mass/Vol]0.2 mg/dLLow0.3-1.2MercTr[facility]ull Memorial Hospital HospitalComment on above:Performed By: #### FEBC #### [address] [address] Rehab Aide: Osvaldo Santamaria MD #### CBC, CP #### [address] [place] [address]2883 Rehab Aide: Yelena Greco MDBUN/CRE Ftxib15Skhmqd0-22Hhztu [facility] Comment on above:Performed By: #### FEBC #### [address] [address] Rehab Aide: Osvaldo Santamaria MD #### CBC, CP #### [address] [place] [address]2883 Rehab Aide: NATALIO Arandaalcium [Mass/Vol]9.4 mg/dLNormal8.6-10.4[facility] HospitalComment on above:Performed By: #### FEBC #### [address] [address] Rehab Aide: Osvaldo Santamaria MD #### CBC, CP #### [address] [place], [place] 7992383 Rehab Aide: NATALIO Arandahloride [Moles/Vol]100 mmol/SEsjjhi19-384ZltedGood Samaritan HospitalComment on above:Performed By: #### FEBC #### [address] [address] Rehab Aide: Osvaldo Santamaria MD #### CBC, CP #### [address] [place], [place] 2467383 Rehab Aide: NATALIO ArandaO2 [Moles/Vol]28 mmol/NChwbrl60-97JwyhjGood Samaritan HospitalComment on above:Performed By: #### FEBC #### [facility] [address] [place] [address] Rehab Aide: Osvaldo Santamaria MD #### JERAMIE, CP #### [address] [place] [phone] Rehab Aide: NATALIO Arandareatinine [Mass/Vol]0.6 mg/dLNormal0.5-0.9[facility] HospitalComment on above:Performed By: #### FEBC #### [address] [place] [address] Rehab Aide: Osvaldo Santamaria MD #### JERAMIE, CP #### [address] [place] [phone] Rehab Aide: Yelena Greco MDGFR/1.73 sq M.predicted among non-blacks MDRD (S/P/Bld) [Vol rate/Area]mL/min/{1.73_m2}Normal>60[facility] HospitalComment on above:Result Comment: These results are [...] renal tubular secretion.Performed By: #### FEBC #### [facility] [address] [place] [address] Rehab Aide: Osvaldo Santamaria MD #### CBC, CP #### [address] [place] [address] Rehab Aide: Yelena Greco MDGlucose [Mass/Vol]91 mg/sJDkvdyc37-66Igabd [facility] HospitalComment on above:Performed By: #### FEBC #### [address] [address] Rehab Aide: Osvaldo Santamaria MD #### CBC, CP #### [address] [place], [place] 3663783 Rehab Aide: ROLANDO Arandaotassium [Moles/Vol]4.2 mmol/LNormal3.7-5.3[facility] Watson HospitalComment on above:Performed By: #### FEBC #### [address] [address] Rehab Aide: Osvaldo Santamaria MD #### JERAMIE, CP #### [address] [place] [address]2883 Rehab Aide: Yelena Greco MDProtein [Mass/Vol]7.6 g/dLNormal6.4-8.3Mwilson healthy Watson HospitalComment on above:Performed By: #### FEBC #### [address] [address] Rehab Aide: Osvaldo Santamaria MD #### JERAMIE, CP #### [address] [place], [place] 6678983 Rehab Aide: Yelena Greco MDSodium [Moles/Vol]136 mmol/XTqcoau960-845Xonrx [facility] HospitalComment on above:Performed By: #### FEBC #### [address] [address] Rehab Aide: Osvaldo Santamaria MD #### CBC, CP #### [address] [place], [place] 2146683 Rehab Aide: Yelena Greco MDUrea nitrogen [Mass/Vol]12 mg/dLNormal6-20[facility] HospitalComment on above:Performed By: #### FEBC #### [address] [address] Rehab Aide: Osvaldo Santamaria MD #### CBC, CP #### [address] [place], [place] 9489883 Rehab Aide: Jorje Arandan Binding Cap.on 02-16-2024% Fe Dcyvealrwf72 % Alwhnl58-59Cskro [facility]iff[facility] HospitalComment on above:Performed By: #### FEBC #### [address] [address] Rehab Aide: Osvaldo Santamaria MD #### CBC, CP #### [address] [place] [address] Rehab Aide: Una Aranda [Mass/Vol]92 ug/gEBmryde60-498Vxabr [facility] HospitalComment on above:Performed By: #### FEBC #### [address] [address] Rehab Aide: Osvaldo Santamaria MD #### CBC, CP #### [address] [place], [place] 8667783 Rehab Aide: Yelena Greco MDTotal Fe Binding Mik664 ug/vWMyojzf418-510Fnqhu [facility] HospitalComment on above:Performed By: #### FEBC #### [address] [address] Rehab Aide: Osvaldo Santamaria MD #### CBC, CP #### [address] [place], [place] 3906183 Rehab Aide: Yelena Greco MDUnbound Fe Bind Kvc672 ug/mDKaoice557-600Prjdv [facility] HospitalComment on above:Performed By: #### FEBC #### [address] [address] Rehab Aide: Osvaldo Santamaria MD #### CBC, MICAH #### [facility] [address] [place] [address] Rehab Aide: Yelena Greco MDLipid Profileon 17-06-8791Odejeoxxris [Mass/Vol] 245 mg/dLHigh0-199[facility] Memorial Hospitalment on above:Result Comment: Cholesterol Guidelines: <200 Desirable 200-240 Borderline >240 UndesirablePerformed By: #### LIPR #### [address] [address] Rehab Aide: Osvaldo Santamaria, MDCholesterol in HDL [Mass/Vol]34 mg/dLLow>40[facility] on above:Result Comment: HDL Guidelines: <40 Undesirable 40-59 Borderline >59 DesirablePerformed By: #### LIPR #### [address] [address] Rehab Aide: Osvaldo Santamaria MDCholesterol in LDL [Mass/Vol]159 mg/dLHigh0-100 [facility] on above:Result Comment: LDL Guidelines: <100 Desirable 100-129 Near to/above Desirable 130-159 Borderline >159 Undesirable Direct (measured) LDL and calculated LDL are not interchangeable tests.Performed By: #### LIPR #### [address] [address] Rehab Aide: Osvaldo Santamaria MDCholesterol in VLDL [Mass/Vol]52 mg/dLNormal [facility] HospitalComascension [place] on above:Performed By: #### LIPR #### [facility] [address] [place] [address] Rehab Aide: Chance Tavarezstmilad.total/Cholesterol in HDL [Mass ratio]7.0 {ratio}NormalGood Samaritan HospitalComascension macomb on above:Performed By: #### LIPR #### [facility] [address] [place] [address] Rehab Aide: Osvaldo Santamaria MDTriglyceride [Mass/Vol]259 mg/dLHigh<150[facility] HospitalComment on above:Result Comment: Triglyceride Guidelines: <150 Desirable 150-199 Borderline 200-499 High >499 Very high Based on AHA Guidelines for fasting triglyceride, April 2012.Performed By: #### LIPR #### [facility] [address] [place] [address] Rehab Aide: Osvaldo Santamaria MDOffice Visiton [id number]-up visit [id number] Vinny Downey 2000 Provider Department Center 07/11/2023 CoralRAJENDRA REBOLLEDO SAMSON Mccormick Family History Problem Relation Age of Onset Anemia Mother Supraventricular tachycardia Father Hyperlipidemia Father Diabetes Sister Family Status - Relation Status Age at Mother Father Sister Level of Service:[address] [place] OFFICE/OUTPATIENT NEW MODERATE MDM 45 MINUTESNoMercy Health [facility] Mills HospitalOffice Visiton [id number]-up visit [id number] Vinny Downey 2000 Provider Department Center 03/20/2023 ISRAEL ULLOA SAMSON L[facility] Family History Problem Relation Age of Onset Anemia Mother Supraventricular tachycardia Father Hyperlipidemia Father Diabetes Sister Family Status - Relation Status Age at Mother Father Sister Level of Service:[address]379 [place] OFFICE/OUTPATIENT NEW LOW MDM 30-44 MINUTESNoMercy Health [facility] Mills HospitalUS PREG BIOPHY W NON STRESSon 31-01-3860XR PREG BIOPHY W NON STRESSEXAMINATION: US PREG [...] Electronically authenticated by: YELENA CARLOS Date: 2022-12-20 07:03[facility] PREG PLACENTAon [id number] PREG PLACENTAEXAMINATION: US PREG PLACENTA HISTORY: Left [...] authenticated by: LUIS ALFREDO GRANT Date: 2022-12-12 14:56[facility] PREG BIOPHY W NON STRESSon [id number] PREG BIOPHY W NON STRESSEXAMINATION: US PREG [...] authenticated by: LUIS ALFREDO GRANT Date: 2022-12-11 04:08[facility] PREG GROWTHon [id number] PREG GROWTHEXAMINATION: US PREG GROWTH HISTORY: High [...] authenticated by: LUIS ALFREDO GRANT Date: 2022-12-11 04:06[facility] CenterGTT 3 HR PREGon 17-35-9501Qxslojd [Mass/Vol]98 mg/dLNormal 74-106[facility] HospitalComment on above:Performed By: #### GTT3P #### [facility] [address] [place] [address] Dr. Emilee SpringerGlucose [Mass/Vol]170 mg/dLBarney Children's Medical CenterComment on above:Performed By: #### GTT3P #### [facility] [address] [place] [address] Dr. Emilee SpringerGlucose [Mass/Vol]201 mg/dLBarney Children's Medical CenterComment on above:Performed By: #### GTT3P #### [facility] [address] [place] [address] Dr. Emilee SpringerGlucose [Mass/Vol]115 mg/dLBarney Children's Medical CenterComment on above:Performed By: #### GTT3P #### [facility] [address] [place] [address] Dr. Emilee Mcconnell PREG INCOMPLETE ANATOMYon [id number] PREG INCOMPLETE ANATOMY EXAM: US PREG INCOMPLETE ANATOMY HISTORY: screening COMPARISON: 09/10/2022 TECHNIQUE: Transabdominal FINDINGS: position: Transverse, head to the maternal right Heart rate: 157 bpm Normal observed anatomy: Nose/lips, four-chamber heart, left ventricular outflow tract, right ventricular outflow tract, spine IMPRESSION: Normal observed anatomy Electronically authenticated by: YELENA CARLOS Date: 2022-10-16 08:44[facility] AUTO DIFFon [id number] #0.0 103/ulNormal0.0-0.1[facility] HospitalComment on above:Performed By: #### CBC #### [facility] [address] [address] [address] Emilee SpringerBasophils/100 WBC (Bld)0.2 %Normal0.2-2.0[facility] Comment on above:Performed By: #### CBC #### [facility] [address] [place] [address] Dr. Emilee Weldon #0.1 103/ulNormal0.0-0.7The [facility] HospitalComment on above: Performed By: #### CBC #### [facility] [address] [place] [address] Dr. Emilee Cintronosinophils/100 WBC (Bld)0.8 %Critically low0.9-7.0The [facility] HospitalComment on above:Performed By: #### CBC #### [facility] [address] [place] [address] Dr. Emilee Cintronrythrocyte distribution width (RBC) [Ratio]12.5 %Vqmjrw90.0-15.0 [facility] HospitalComment on above:Performed By: #### CBC #### [facility] [address] [place] [address] Dr. Emilee SpringerHematocrit (Bld) [Volume fraction]29.8 %Critically low36.0-48.0 [facility] HospitalComment on above:Performed By: #### CBC #### [facility] [address] [place] [address] Dr. Emilee SpringerHemoglobin (Bld) [Mass/Vol]10.0 g/dLCritically low12.0-16.0[facility] HospitalComment on above:Performed By: #### CBC #### [facility] [address] [place] [address] Dr. Emilee Van #0.05 10e3/ulCritically high0.00-0.03[facility] Comment on above:Performed By: #### CBC #### [facility] [address] [place] [address] Dr. Emilee Van %0.5 %Normal0.0-0.5The [facility] HospitalComment on above: Performed By: #### CBC #### [facility] [address] [address] [address] Emilee Renae #1.6 103/ulNormal1.2-3.8The [facility] HospitalComascension macomb on above:Performed By: #### CBC #### [facility] [address] [place] [address] Dr. Emilee Danielhocytes/100 WBC (Bld)15.3 %Critically low20.5-60.0The [facility] HospitalComment on above:Performed By: #### CBC #### [facility] [address] [place] [address] Dr. Emilee Esquivel DIFF REQNONormalThe [facility] HospitalComment on above: Performed By: #### CBC #### [facility] [address] [place] [address] Dr. Emilee Hannah (RBC) [Entitic mass]30.2 aaYmssci31.7-34.0The [facility] HospitalComment on above:Performed By: #### CBC #### [facility] [address] [place] [address] Dr. Emilee Guevara (RBC) [Mass/Vol]33.6 g/rCTkjpwc70.9-35.2The [facility] on above:Performed By: #### CBC #### [facility] [address] [place] [address] Dr. Emilee Guevara (RBC) [Entitic vol]90.0 sGEezoru46.0-99.0The [facility] HospitalComment on above:Performed By: #### CBC #### [facility] [address] [place] [address] Dr. Emilee Banegas #0.6 103/ulNormal0.3-0.8The [facility] on above:Performed By: #### CBC #### [facility] [address] [place] [address] Dr. Emilee Hightowerocytes/100 WBC (Bld)5.8 %Normal1.7-12.0The [facility] Comment on above:Performed By: #### CBC #### [facility] [address] [place] [address] Dr. Emilee Fernandez #8.2 103/ulCritically high1.4-6.5The [facility] Comment on above:Performed By: #### CBC #### [facility] [address] [place] [address] Dr. Emilee Meeksutrophils/100 WBC (Bld)77.4 %Critically high43.0-75.0The [facility] HospitalComment on above:Performed By: #### CBC #### [facility] [address] [place] [address] Dr. Emilee Olmedolet mean volume (Bld) [Entitic vol]8.5 fLCritically low 9.5-13.5The [facility] HospitalComment on above:Performed By: #### CBC #### [facility] [address] [place] [address] Dr. Emilee SpringerPLT347 103/csBcnlce203-390Qul [facility] HospitalComment on above: Performed By: #### CBC #### [facility] [address] [place] [address] Dr. Emilee SpringerRBC3.31 106/ulCritically low4.20-5.40The [facility] HospitalComment on above:Performed By: #### CBC #### [facility] [address] [place] [address] Dr. Emilee SpringerWBC10.6 103/ulNormal4.0-11.0The [facility] HospitalComment on above:Performed By: #### CBC #### [facility] [address] [place] [address] Dr. Emilee SpringerGLUCOSE - 1HRon 49-55-6440Yjjjpix [Mass/Vol]176 mg/dLCritically exnl02-475Ywy [facility] HospitalComment on above:Performed By: #### GLU1HR #### [facility] [address] [place] [address] Dr. Yilan ChangCHLAMYDIA/GONOCOCCUS ANISA (SWAB/URINE/PAPon 95-81-2440Atfksmdes trachomatis, NAANegativeNormalNegativeThe [facility] HospitalComment on above: Performed By: #### CBC #### [facility] [address] [place] [address] Dr. Emilee SpringerNeisseria gonorrhoeae, NAANegativeNormalNegativeMorrow County HospitalComment on above:Performed By: #### CBC #### [facility] [address] [address] [address] Emilee SpringerVAGINITIS/VAGINOSIS DNA PROBEon 70-72-0113Kvzxevv speciesNegative NormalNegativeThe [facility] HospitalComment on above:Performed By: #### CBC #### [facility] [address] [place] [address] Dr. Emilee Wickdnerelllinda vaginalisNegativeNormalNegativeMorrow County Hospital Comment on above:Performed By: #### CBC #### [facility] [address] [place] [address] Dr. Emilee SpringerTrichomonas vaginalisNegativeNormmaNegativeMorrow County Hospital Comment on above:Performed By: #### CBC #### [facility] [address] [place] [address] Dr. Emilee Mcconnell PREG ANATOMY SINGLEon [id number] PREG ANATOMY SINGLE EXAMINATION: US PREG ANATOMY [...] authenticated by: LUIS ALFREDO GRANT Date: 2022-09-13 16:57[facility] MATERNAL FOR SPINA BIFIDAon [id number] MoM0.42[facility] Medical CenterComment on above:Performed By: #### AFPMAT #### [facility] [address] [place] [address] Dr. Emilee Yoder Value16.7 ng/mLNSelect Medical OhioHealth Rehabilitation HospitalComment on above: Performed By: #### AFPMAT #### [facility] [address] [place] [address] Dr. Emilee Yoder, Serum for Spina BifidaReMiddletown Hospital Comment on above:Performed By: #### AFPMAT #### [facility] [address] [place] [address] Dr. Emilee SpringerFreeman Orthopaedics & Sports MedicinefaustinoMercy Health Anderson HospitalComment on above:Result Comment: Pam Machado, Ph.D., [facility] Director . References: Available Upon Request. . Multiples Of Median Cutoffs For AFP Elevations Berkowitz 2.5 Black 2.8 IDD 2.0 Twins 4.5 Abbreviation Definitions IDD - Insulin Dep Diabetes OSBR - Open Spina Bifida Risk . For further inquiries contact [facility] at [phone]. . This test was developed and its performance characteristics determined by [facility]. It has not been cleared or approved by the Food and Drug Administration.Performed By: #### AFPMAT #### [facility] [address] [address] [address] Emilee Barrow Age Collection Date18.6 weeksBarney Children's [facility] Center Comment on above:Performed By: #### AFPMAT #### [facility] [address] [address] [address] Emilee Barrowat, Age Based onEMercy Health Tiffin HospitalComment on above:Result Comment: 01/26/2023 Recalculations are not recommended when gestational dating by LMP and ultrasound are within 10 days.Performed By: #### AFPMAT #### [facility] [address] [address] [address] Emilee Luis [facility] Main CampusComment on above:Result Comment: Not provided. .Performed By: #### AFPMAT #### [facility] [address] [place] [address] Dr. Emilee SpringerInterpretationMercy Health Anderson HospitalComment on above: Result Comment: Interpretation: Screen [...] Customer Services to discuss available options. The [employer] recommends amniocentesis be offered to women age 35 and older.Performed By: #### AFPMAT #### [facility] [address] [address] [address] Emilee Chong Age at EDD[age] yrBarney Children's Medical CenterComment on above:Performed By: #### AFPMAT #### [facility] [address] [address] [address] Emilee Marquzeiplmaria elena Corey HospitalComascension [facility] on above:Result Comment: Not provided. .Performed By: #### AFPMAT #### [facility] [address] [place] [address] Dr. Emilee SpringerOSBR Risk 1 OF12582JxnpxaFtzUniversity Hospitals Health SystemComment on above: Performed By: #### AFPMAT #### [facility] [address] [place] [address] Dr. Emilee Galo.NormalThe [facility] HospitalComascension macomb on above:Performed By: #### AFPMAT #### [facility] [address] [place] [address] Dr. Emilee SpringerRaceCommentNoJoint Township District Memorial Hospital on above:Result Comment: Not provided. .Performed By: #### AFPMAT #### [facility] [address] [place] [address] Dr. Emilee Arvizu Results:NegativeNoUniversity Hospitals Health SystemComment on above: Performed By: #### AFPMAT #### [facility] [address] [place] [address] Dr. Emilee SpringerRujessea antibody, IgGon 03-76-5627Bmyjkqk virus IgG Ql (S)314.5 IU/mLDominion Hospital on above: REFERENCE RANGE: <5.0 NON-REACTIVE (non-immune) 5.0 TO 9.9 EQUIVOCAL >=10.0 REACTIVE (immune) [facility] B SURFACE ANTIGEN SCREENon 27-39-9642GPlEy Screen NegativeNormalNegativeThe [facility] on above:Performed By: #### HBSANS #### [facility] [address] [place] [address] Dr. Emilee SpringerHEPATITIS C VIRUS AB W/ REFLEX QUANTon 67-43-1199KEM AB<0.1Normal 0.0-0.9The [facility] on above:Performed By: #### HCVPCRR #### [facility] [address] [place] [address] Dr. Emilee SpringerInterpretation:CommentParma Community General Hospital on above:Result Comment: Negative Not infected with HCV, unless recent infection is suspected or other evidence exists to indicate HCV infection.Performed By: #### HCVPCRR #### [facility] [address] [place] [address] Dr. Emilee JallohV 1 AND 2 WITH REFLEXon 58-58-9080CMX Screen 4th Generation wRfxNon-ReactiveNormalNon ReactiveThe [facility] Memorial Hospitalment on above:Result Comment: HIV Negative HIV-1/HIV-2 antibodies and HIV-1 p24 antigen were NOT detected. There is no laboratory evidence of HIV infection.Performed By: #### CBC #### [facility] [address] [place] [address] Dr. Emilee SpringerRPR QUANTon 28-28-0934Eefeo Plasma Reagin, QuantNon-Reactive NormalNonRea<1:1The [facility] on above:Result Comment: Please Note: This test does not meet current guidelines for screening and diagnosis of syphilis. This test is intended for following treatment response in patients being treated for syphilis infection. To screen for syphilis infection, a reflex cascade that includes both RPR and a treponema-specific assay should be utilized, such as Treponema pallidum (Syphilis) Screening [place] (281335) or Rapid Plasma Reagin (RPR) Test With Reflex to Quantitative RPR and Confirmatory Treponema pallidum Antibodies (382211).Performed By: #### CBC #### [facility] [address] [place] [address] Dr. Emilee Ramírez AB IGGon 14-72-5220Jlvuinb Antibodies, IgG5.03 index NormalImmune >0.99The [facility] on above:Result Comment: Non- immune <0.90 Equivocal 0.90 - 0.99 Immune >0.99Performed By: #### RUBIGG #### [facility] [address] [place] [address] Dr. Emilee Killian AUTO DIFFon 65-48-3716JRQB #0.0 103/ulNormal0.0-0.1The [facility] Memorial Hospitalment on above:Performed By: #### GLU1HR #### [facility] [address] [place] [address] Dr. Emilee SpringerBasophils/100 WBC (Bld)0.2 %Normal0.2-2.0The [facility] Comment on above:Performed By: #### GLU1HR #### [facility] [address] [place] [address] Dr. Emilee Weldon #0.1 103/ulNormal0.0-0.7The [facility] HospitalComment on above: Performed By: #### GLU1HR #### [facility] [address] [place] [address] Dr. Emilee Cintronosinophils/100 WBC (Bld)0.9 %Normal0.9-7.0The [facility] Comment on above:Performed By: #### GLU1HR #### [facility] [address] [place] [address] Dr. Emilee Cintronrythrocyte distribution width (RBC) [Ratio]11.9 %Zdvluv24.0-15.0 The [facility] HospitalComment on above:Performed By: #### GLU1HR #### [facility] [address] [place] [address] Dr. Emilee SpringerHematocrit (Bld) [Volume fraction]32.9 %Critically low36.0-48.0 The [facility] HospitalComment on above:Performed By: #### GLU1HR #### [facility] [address] [place] [address] Dr. Emilee SpringerHemoglobin (Bld) [Mass/Vol]11.6 g/dLCritically low12.0-16.0The [facility] HospitalComment on above:Performed By: #### GLU1HR #### [facility] [address] [place] [address] Dr. Emilee Van #0.03 10e3/ulNormal0.00-0.03The [facility] HospitalComment on above:Performed By: #### GLU1HR #### [facility] [address] [place] [address] Dr. Emilee Van %0.3 %Normal0.0-0.5The [facility] HospitalComment on above: Performed By: #### GLU1HR #### [facility] [address] [place] [address] Dr. Emilee Renae #2.1 103/ulNormal1.2-3.8The [facility] HospitalComment on above:Performed By: #### GLU1HR #### [facility] [address] [place] [address] Dr. Emilee Danielhocytes/100 WBC (Bld)20.2 %Critically low20.5-60.0The [facility] HospitalComment on above:Performed By: #### GLU1HR #### [facility] [address] [place] [address] Dr. Emilee PenningtonUAL DIFF REQNONormalThe [facility] HospitalComment on above: Performed By: #### GLU1HR #### [facility] [address] [place] [address] Dr. Emilee Hannah (RBC) [Entitic mass]31.4 ykZuyzzu32.7-34.0The [facility] HospitalComment on above:Performed By: #### GLU1HR #### [facility] [address] [place] [address] Dr. Emilee Guevara (RBC) [Mass/Vol]35.3 g/dLCritically high29.9-35.2The [facility] HospitalComment on above:Performed By: #### GLU1HR #### [facility] [address] [place] [address] Dr. Emilee Guevara (RBC) [Entitic vol]89.2 zTTwywkd63.0-99.0The [facility] HospitalComment on above:Performed By: #### GLU1HR #### [facility] [address] [place] [address] Dr. Emilee Banegas #0.7 103/ulNormal0.3-0.8The [facility] HospitalComment on above:Performed By: #### GLU1HR #### [facility] [address] [place] [address] Dr. Emilee Hightowerocytes/100 WBC (Bld)7.0 %Normal1.7-12.0The [facility] Comment on above:Performed By: #### GLU1HR #### [facility] [address] [place] [address] Dr. Emilee Fernandez #7.5 103/ulCritically high1.4-6.5The [facility] Comment on above:Performed By: #### GLU1HR #### [facility] [address] [place] [address] Dr. Emilee Meeksutrophils/100 WBC (Bld)71.4 %Hxhbpo41.0-75.0The [facility] HospitalComment on above:Performed By: #### GLU1HR #### [facility] [address] [place] [address] Dr. Emilee SpringerPlatelet mean volume (Bld) [Entitic vol]9.1 fLCritically low 9.5-13.5The [facility] HospitalComment on above:Performed By: #### GLU1HR #### [facility] [address] [place] [address] Dr. Emilee SpringerPLT311 103/csXivfyy604-856Zzx [facility] HospitalComment on above: Performed By: #### GLU1HR #### [facility] [address] [place] [address] Dr. Emilee SpringerRBC3.69 106/ulCritically low4.20-5.40The [facility] HospitalComment on above:Performed By: #### GLU1HR #### [facility] [address] [place] [address] Dr. Emilee SpringerWBC10.5 103/ulNormal4.0-11.0The [facility] HospitalComment on above:Performed By: #### GLU1HR #### [facility] [address] [place] [address] Dr. Emilee SpringerCULTDENZEL URINEon 45-92-1517VABGZCI URINECulture Observations: LIGHT GROWTH OF MIXED GENITAL BREN. NO POTENTIAL PATHOGENS SEEN.NormalThe [facility] HospitalComment on above:Performed By: #### GLU1HR #### [facility] [address] [place] [address] Dr. Emilee SpringerGLYCOHEMOGLOBIN A1Con 26-19-1114YYD RECOMMENDATIONSEE BELOWNormal The [facility] HospitalComment on above:Result Comment: ADA RECOMMENDED LIMIT 4.0 - 6.0 ADA THERAPEUTIC TARGET < 7.0 ACTION SUGGESTED > 7.0Performed By: #### A1C #### [facility] [address] [place] [address] Dr. Emilee SpringerGlucose [Mass/Vol]108 mg/dLNoUniversity Hospitals Health SystemComment on above:Performed By: #### A1C #### [facility] [address] [place] [address] Dr. Emilee SpringerHbA1c (Bld) [Mass fraction]5.4 %Normal4.5-6.2The [facility] HospitalComment on above:Performed By: #### A1C #### [facility] [address] [place] [address] Dr. Emilee Alonzo BOX TEST PT SEND OUTon 66-46-4127FNRF TO REF LAB07/04/2022 NormalThe [facility] HospitalComascension macomb on above:Performed By: #### NBOX #### [facility] [address] [place] [address] Dr. Emilee SpringerTYPE AND SCREENon 93-83-0252ADQC AND SCREENNegativeNoUniversity Hospitals Health SystemComascension macomb on above:Performed By: #### GLU1HR #### [facility] [address] [place] [address] Dr. Emilee SpringerUS PREG TVon 30-28-9102JX PREG TVEXAMINATION: US PREG TV HISTORY: test [...] Electronically authenticated by: YELENA CARLOS Date: 2022-06-23 17:00[facility]ional [facility] CenterG, Quantitative, Pregnancyon 98-75-3049mTP Vjpve71064RkuwMCDT [facility] on above: Non-preg premeno <=5 Postmeno <=8 Male <=3 If HCG results do not concur with clinical observations, additional testing to confirm results is recommended. Interpretation and review of laboratory resultsAbnormalBON SECOURS DEPAUL MEDICAL CENTEROG PANEL 2: 21 to 29on 04-24-2022..NormalThe [facility] on above:Performed By: #### [id number] #### [facility] [address] [place] [address] Dr. Emilee SpringerAge Gdln ACOG Iwbdfgm21-87BhzlehUwcParma Community General Hospital on above:Performed By: #### [id number] #### [facility] [address] [place] [address] Dr. Emilee SpringerDIAGNOSIS:CommentParma Community General Hospital on above: Result Comment: NEGATIVE FOR INTRAEPITHELIAL LESION OR MALIGNANCY. CELLULAR CHANGES ASSOCIATED WITH INFLAMMATION ARE PRESENT.Performed By: #### [id number] #### [facility] [address] [place] [address] Dr. Emilee SpringerMethodology:CommentParma Community General Hospital on above: Result Comment: This liquid based ThinPrep(R) pap test was screened with the use of an image guided system.Performed By: #### [id number] #### [facility] [address] [place] [address] Dr. Emilee SpringerNote:CommentParma Community General Hospital on above:Result Comment: The Pap smear is a screening test designed to aid in the detection of premalignant and malignant conditions of the uterine cervix. It is not a diagnostic procedure and should not be used as the sole means of detecting cervical cancer. Both false-positive and false-negative reports do occur. .Performed By: #### [id number] #### [facility] [address] [place] [address] Dr. Emilee SpringerPerformed by:CommentParma Community General Hospital on above: Result Comment: Mary Lou Adams, CytotechnologistPerformed By: #### [id number] #### [facility] [address] [address] [address] Emilee SpringerReflex Criteria:CommentParma Community General Hospital on above:Result Comment: The HPV DNA reflex criteria were not met with this specimen result therefore, no HPV testing was performed. .Performed By: #### [id number] #### [facility] [address] [address] [address] Emilee SpringerSpecimen adequacy:CommentParma Community General Hospital on above:Result Comment: Satisfactory for evaluation. Endocervical and/or squamous metaplastic cells (endocervical component) are present.Performed By: #### [id number] #### [facility] [address] [address] [address] Emilee SpringerHCG, Quantitative, Pregnancyon 44-51-0343mAZ Cijrt03Ongp<5 IU/L [facility]ittman HospitalCurefabFreeman Orthopaedics & Sports Medicinement on above: Non-preg premeno <=5 Postmeno <=8 Male <=3 If HCG results do not concur with clinical observations, additional testing to confirm results is recommended. Elevated results not associated with may be found in patients with other diseases such as tumors of the germ cells (testis, ovaries, etc.), bladder, pancreas, stomach, lungs, and liver. Interpretation and review of laboratory resultsAbnoMayo Clinic Health System– Red Cedar RENAL COMPLETEOrdered By: Lorena Ricks on 42-29-6941Qlmwghfvtzbz ultrasound of the kidneys and urinary bladder.[employer] Phone: eXAMINATION: RETROPERITONEAL ULTRASOUND OF THE KIDNEYS AND URINARY BLADDER 11/25/2020 COMPARISON: None HISTORY: ORDERING SYSTEM PROVIDED HISTORY: Frequent UTI TECHNOLOGIST PROVIDED HISTORY: This procedure can be scheduled via [employer]. Access your [employer] account by visiting [employer]. FINDINGS: Kidneys: The right kidney measures 11.1 cm in length and the left kidney measures 11.6 cm in length. Kidneys demonstrate normal cortical echogenicity. No evidence of hydronephrosis or intrarenal stones. Bladder: Unremarkable appearance of the bladder. No significant post void residual.[employer] Phone: eanuj, Mhkirsten Incoming Radiant Results From [employer] - 11/25/2020 3:59 PM EDT EXAMINATION: RETROPERITONEAL ULTRASOUND OF THE KIDNEYS AND URINARY BLADDER 11/25/2020 COMPARISON: None HISTORY: ORDERING SYSTEM PROVIDED HISTORY: Frequent UTI TECHNOLOGIST PROVIDED HISTORY: This procedure can be scheduled via [employer]. Access your [employer] account by visiting [employer]. FINDINGS: Kidneys: The right kidney measures 11.1 cm in length and the left kidney measures 11.6 cm in length. Kidneys demonstrate normal cortical echogenicity. No evidence of hydronephrosis or intrarenal stones. Bladder: Unremarkable appearance of the bladder. No significant post void residual. IMPRESSION: Unremarkable ultrasound of the kidneys and urinary bladder. [employer] Phone: Formson 81-20-1790Oefdw [id number]#1.00CD:127NoThe Christ HospitalAmbulatory Clinical Summaryon 23-41-0721Czhwhojomp Clinical Summary {65-sm-tc-wj-zy-64-54-68-k4-6r-m3-54-5a-16-ce-86}CD:[id number] Regional Medical CenterGeneral Surgery Office/Clinic Noteon 51-06-5377Avlqsnf Surgery Office/Clinic NoteChief Complaint post operative follow up HPI Staff 8 day post operative follow up post lap appendectomy completed while in-patient at [facility]. Doing well. Minimal discomfort. Taking Ibuprofen [...] available Patient Education Exercise to Lose Weight, Pyhp-gw-Prfw Problem List/Past Medical History Ongoing Acute appendicitis [...] 10/13/2020 Family History Family history is negativeRuby Greater Baltimore Medical CenterComment on above: Result Comment: Electronically Signed By: LATANYA MCKENNA, Sushant Babb\Date and Time Signed: 10/13/20 13:39 EDTPatient Educationon 66-61-6599Hmdftnz Education Exercise to Lose Weight Exercise and [...] Document Reviewed: 08/12/2011 ExitCare? Patient Information ?2013 [facility] Regional Medical CenterProvider Letter FTon [phone] Letter [facility] October 13, 2020 ARABELLAYUMIKO VINNY C [address] [place] [address] ARABELLAYUMIKO VINNY Barnett 2000 To Whom It May Concern, Please excuse above patient from work 10/14/20. Sincerely, Dr. Sushant Lott MD General SurgeryNoThe Christ HospitalPathology Noteon 10-08-2020 Pathology [id number]#1.00CD:127Community Regional Medical CenterFacesheeton 08-15-0149Cazlvuoib [id number]#1.00CD:[address] [place], [place] [address]Operative Reporton 60-41-3345Hfnybxxgi Report [id number]:127Community Regional Medical CenterHIV Screenon 08-15-3722IRI Ag/AbNONREACTIVENONREACTIVEBrecksville Va [facility]- [place], [place] Comment on above:No laboratory evidence of HIV infection. If acute HIV infection is suspected, consider testing for HIV-1 RNA. Basic Metabolic Panelon 50-90-8610Sfnuo gap [Moles/Vol]11 mmol/L9 - 17 mmol/L [facility]- [place], KYBun/Cre Uopvy29Xvruz Health- [place], KYCalcium [Mass/Vol]9.3 mg/dL8.6 - 10.4 mg/dLAultman Hospital Health- [place], KYChloride [Moles/Vol]103 mmol/L98 - 107 mmol/LMercy Health- [place], KYCO2 [Moles/Vol]23 mmol/L20 - 31 mmol/LMercy Health- [place], KYCreatinine [Mass/Vol]0.57 mg/dL0.5 - 0.9 mg/dLAultman Hospital Health- [place], KYGFR >60>60 mL/minMer Health- [place], CTGFR Non->60>60 mL/minUniversity Hospitals Lake West Medical Center, CTGlucose [Mass/Vol]88 mg/dL70 - 99 mg/dLUniversity Hospitals Lake West Medical Center, CTPotassium [Moles/Vol]4.6 mmol/L3.7 - 5.3 mmol/LMSelect Medical Specialty [facility], Inc, CTSodium [Moles/Vol]137 mmol/L135 - 144 mmol/LMSelect Medical Specialty Hospital [facility], [facility], CTUrea nitrogen [Mass/Vol]11 mg/dL6 - 20 mg/dLRacine, KYCBCon 16-58-1629Xnkeywnsask distribution width (RBC) [Ratio]11.7 %Low11.8 - 14.4 %[place], [place] Hematocrit (Bld) [Volume fraction]36.4 %36.3 - 47.1 %[place], [place] Hemoglobin (Bld) [Mass/Vol]12.2 g/dL11.9 - 15.1 g/dLRacine, [place] Interpretation and review of laboratory resultsAbnormalR[place], KYMCH (RBC) [Entitic mass]31.4 pg25.2 - 33.5 pgRacine, KYMCHC (RBC) [Mass/Vol]33.5 g/dL28.4 - 34.8 g/dLRacine, KYMCV (RBC) [Entitic vol] 93.8 fL82.6 - 102.9 fLRacine, KYPlatelet mean volume (Bld) [Entitic vol]9.2 fL8.1 - 13.5 fLRacine, KYPlatelets (Bld) [#/Vol]307 10*3/uL [place], KYRBC (Bld) [#/Vol]3.88 10*6/uLLow3.95 - 5.11 m/uLRacine, KYWBC (Bld) [#/Vol]7.2 10*3/uLRac[place], KYWBC (Bld) [#/Vol] 0.0 10*3/uL0.0 per 100 WBCRacine, KYMetabolic Panelon 05-04-2020 GFR/1.73 sq M predicted among non-blacks MDRD (S/P/Bld) [Vol rate/Area][place], KYComment on above:Stage 1: Some kidney damage [...] body mass. Additional eGFR calculator available at: http://www.[employer]USA/GenSpera_crcl_2011.htm HELLENon 25-48-6226OAV Qn2.22 m[IU]/LMEast Gran[place], [place] Vital Signs Date TimeVital SignValuePerforming BazzneangOquxqthf14-63-9915 15:05-0400Body mass index (BMI) [Ratio]37.47 kg/i6NtqbxFaves Work Phone: NOMadison Medical CenterRdkmyioiuy41-96-3280 15:05-0400Body emgqxm131.29 kgCoreFaves Work Phone: NOMadison Medical CenterTmzsdidysl26-78-8596 15:05-0400Diastolic blood hljpruov10 mm[Hg][employer] Work Phone: NOMadison Medical CenterEqcwyebyta30-34-9568 15:05-0400Systolic blood agejfcoq587 mm[Hg][employer] Work Phone: NOMadison Medical CenterFwchcnofmb94-21-1001 15:11-0400Body mass index (BMI) [Ratio]36.7 kg/q3UcwchgslCeasar Li SAW SETTER Work Phone: NOMadison Medical CenterRtnqelzbgw34-50-8664 15:11-0400Body qupblf736.15 kgCeasar Li SAW SETTER Work Phone: NOMadison Medical CenterBqjigchqhc54-31-7415 15:11-0400Diastolic blood dbqkuswe00 mm[Hg]Ceasar Li SAW SETTER Work Phone: [facility] HospitalHkkvisciaw09-33-6874 15:11-0400Systolic blood tbebnqfa070 mm[Hg]Ceasar Li SAW SETTER Work Phone: [facility] HospitalGqgqpbkkpp68-52-4659 15:50-0400Body mass index (BMI) [Ratio]36.64 kg/m2Amy Oralia PA Work Phone: [facility] HospitalDkdhmmqitl91-99-8166 15:50-0400Body jpezzm347.97 kgAmy Oralia PA Work Phone: [facility] HospitalWefpuakpng15-52-6639 15:50-0400Diastolic blood czxgaksk45 mm[Hg]Regina Barton PA Work Phone: [facility] HospitalNknprlbzih00-29-2503 15:50-0400Systolic blood lvhxuyho140 mm[Hg]Regina Barton PA Work Phone: [facility] HospitalZhqiolrwgf94-56-6804 15:44-0400Body mass index (BMI) [Ratio]36.61 kg/m2Amy Oralia PA Work Phone: [facility] HospitalYvbcjyimet64-93-0359 15:44-0400Body mxenva920.88 kgAmy Buckingham PA Work Phone: [facility] HospitalReaxkbuojj36-35-6072 15:44-0400Diastolic blood hjescgvh46 mm[Hg]Regina Barton PA Work Phone: [facility] HospitalHshqjouhlt09-39-7014 15:44-0400Systolic blood fdfkumzp924 mm[Hg]Regina Barton PA Work Phone: [facility] HospitalUiddozjgpz86-64-1545 16:08-0400Body mass index (BMI) [Ratio]36.12 kg/o1Yxygh Law DO Work Phone: [facility] HospitalYyzlqonyyg73-14-0954 16:08-0400Body .52 kgCorey Law DO Work Phone: [facility] HospitalUepzjfkego25-36-5491 16:08-0400Diastolic blood otvmeldt67 mm[Hg]Mukul Law DO Work Phone: [phone] [place], [place] [address]Ggfqijthry67-23-3046 16:08-0400Systolic blood uvtlpscf412 mm[Hg]Mukul Law DO Work Phone: [phone] [place], [place] [address]Sdyexiajfa62-56-8051 15:58-0400Body mass index (BMI) [Ratio]35.96 kg/c4Kjqlj Law DO Work Phone: [phone] [place], [place] [address]Zjilwzfcua43-74-8068 15:58-0400Body ptqcys349.06 kgCorey Law DO Work Phone: [phone] [place], [place] [address]Mqgjmiedpw08-23-6927 15:58-0400Diastolic blood ysqdoygj52 mm[Hg]Mukul Law DO Work Phone: [phone] [place], [place] [address]Dgjhrbncgx68-71-6710 15:58-0400Systolic blood kdcimwop407 mm[Hg]Mukul Law DO Work Phone: [phone] [place], [place] [address]Lgduzmwdnk92-34-3436 14:06-0400Body mass index (BMI) [Ratio]34.99 kg/l6Lefaf Law DO Work Phone: [phone] [place], [place] [address]Eybqbvzueh97-21-8110 14:06-0400Body cdxoot54.34 kgCorey Law DO Work Phone: [phone] [place], [place] [address]Yqrzawogbe11-54-9489 14:06-0400Diastolic blood jhnyvoql70 mm[Hg]Mukul Law DO Work Phone: [phone] [place], [place] [address]Qgtumigfpz26-91-6610 14:06-0400Systolic blood audbpxsb394 mm[Hg]Mukul Law DO Work Phone: [phone] [place], [place] [address]Xzjnddxaev05-68-9317 16:41-0400Body mass index (BMI) [Ratio]34.19 kg/o3Lzbql Law DO Work Phone: [phone] [place], [place] [address]Nnpqzhxlga86-22-7123 16:41-0400Body .07 kgCorey Law DO Work Phone: [phone] [place], [place] [address]Bsxoadmhqb19-89-2783 16:41-0400Diastolic blood mm[Hg]Mukul Law DO Work Phone: [facility] HospitalQuustjakde68-82-2260 16:41-0400Systolic blood rifmbgwu378 mm[Hg]Mukul Law DO Work Phone: [phone] [place], [place] [address]Qsgcdxrirb04-86-0830 16:15-0400Body mass index (BMI) [Ratio]34.22 kg/i5Quuqp Law DO Work Phone: [phone] [place], [place] [address]Qbwrwmxbsh91-16-5575 16:15-0400Body cvwnyw75.16 kgCorey Law DO Work Phone: [phone]05-28-2025 16:15-0400Diastolic blood dovlokhd39 mm[Hg]Mukul Law DO Work Phone: [phone] [place], [place] [address]Mrcalubosu44-94-1499 16:15-0400Systolic blood todmucct007 mm[Hg]Mukul Law DO Work Phone: [phone] [place], [place] [address]Lkwycilklr01-61-1254 15:15-0400Body mass index (BMI) [Ratio]33.57 kg/m2[facility]04-24-2025 15:15-0400Body lmiwgp11.[address] [facility]04-24-2025 15:15-0400Diastolic blood tvxnivit60 mm[Hg][facility]04-24-2025 15:15-0400Systolic blood cprlrqcy117 mm[Hg][facility]12-23-2024 16:25-0500Body mass index (BMI) [Ratio]32.93 kg/m9Qhhjm Lwa DO Work Phone: [phone] [place], [place] [address]Fnytskxrxo96-45-1343 16:25-0500Body proggw84.53 kgCorey Law DO Work Phone: [phone] [place], [place] 8944102-08-2023 03:06-0500Body pcuspt17.8024 kgDR MUKULVicki YOO .The [facility] HospitalComment on above:Performed By: #### AFPMAT #### [facility] [address] [place] [address] Dr. Yilan Springer Encounters Encounter DateEncounter TypeCare ProviderFacilityStart: 05-21-2025 End: 52-97-1293Myatpzrag Result EncounterCorey Law DO Work Phone: NOKQ External Department UnsolicitedStart: 05-21-2025 End: 18-33-8614Uzakjboco Result EncounterCorey Law DO Work Phone: noms External Department UnsolicitedStart: 05-14-2025 End: 29-13-7606vbqxcwffyiVTFCM FAZIONot AvailableStart: 05-14-2025 End: 93-18-7220Odgortbm flow sheetCorey Law DO Work Phone: NONU [place] OBGYNComment on above:Third trimester ([facility]); 34 weeks gestation of ([facility]); Insulin controlled gestational diabetes mellitus (GDM) during , antepartum ([facility]); Gestational diabetes mellitus (GDM), antepartum, gestational diabetes method of control unspecified([facility])Start: 05-14-2025 End: 82-25-4010Cgtzry flowsheetCorey Law DO Work Phone: NOMS [place] OBGYNStart: 05-14-2025 End: 13-16-0362Dkftxm flowsheetCorey Law DO Work Phone: NONN [place] OBGYNStart: 04-30-2025 End: 09-87-8886zrwoxvpwikXGOSMIYP EBERLYNot AvailableStart: 04-30-2025 End: 29-37-6266Nxjabtgr flow sheetKristina Guillermo SAW SETTER Work Phone: NOCH [place] OBGYNComment on above:Third trimester ([facility]); 32 weeks gestation of ([facility])Start: 04-30-2025 End: 71-04-1268Kufwzo flowsheetCeasar Li SAW SETTER Work Phone: NOEP [facility] OBGYNStart: 04-30-2025 End: 52-61-9404Izjrwy flowsheetKristina Guillermo SAW SETTER Work Phone: NOJI Heri OBGYNStart: 04-30-2025 End: 40-11-5264Tcsnpmpqp Result EncounterMukul Foy DO Work Phone: noms External Department UnsolicitedStart: 04-14-2025 End: 66-16-2361lbsvoanveuQXC RAMHORTENCIANot AvailableStart: 04-14-2025 End: 59-06-6429Wihgggqo flow sheetRegina RUIZ Work Phone: noms [place] OBGYNComment on above:Third trimester ([facility]); 30 weeks gestation of ([facility])Start: 04-14-2025 End: 43-14-7279Prkfqi Darek RUIZ Work Phone: NOMS [place] OBGYNStart: 04-14-2025 End: 03-09-5056Rzzfxw Darek RUIZ Work Phone: noms [place] OBGYNStart: 04-05-2025 End: 46-04-5627Nfeilwagp Result EncounterAmy Oralia RUIZ Work Phone: noms External Department UnsolicitedStart: 04-05-2025 End: 73-19-2441Tdnruytls Result EncounterRegina Oralia RUIZ Work Phone: noms External Department UnsolicitedStart: 04-03-2025 End: 30-41-4088okyxcemgyoODD RAMEYNot AvailableStart: 04-03-2025 End: 23-96-8075Tdpkaclk flow Chuy RUIZ Work Phone: NOMS Heri OBGYNComment on above:28 weeks gestation of ([facility]); Third trimester ([facility]); Dizziness; Gestational diabetes mellitus (GDM), antepartum, gestational diabetes method of control unspecified([facility]); History of miscarriage; Anemia, unspecified type; UTI symptomsStart: 04-03-2025 End: 79-38-2684Gabrlj Darek RUIZ Work Phone: NOMS Heri OBGYNStart: 04-03-2025 End: 05-81-7950Jlafxx flowsheetAmy Oralia PA Work Phone: NOMS [place] OBGYNStart: 03-12-2025 End: 59-38-6242yrzixczwrwGAUIB FAZIONot AvailableStart: 03-12-2025 End: 60-44-4920Napjojqe flow sheetCorey Law DO Work Phone: NOMS [place] OBGYNComment on above:25 weeks gestation of ([facility]); Second trimester ([facility]); Gastroesophageal reflux disease without esophagitisStart: 03-12-2025 End: 81-44-6269Ggxesf flowsheetCorey Law DO Work Phone: NOMS [place] OBGYNStart: 03-12-2025 End: 04-91-0288Qjbmlu flowsheetCorey Law DO Work Phone: NOMS [place] OBGYNStart: 02-26-2025 End: 96-65-2117lujwogjqxiMNWJF FAZIONot AvailableStart: 02-26-2025 End: 34-62-9579Lgtgpnzd flow sheetCorey Law DO Work Phone: NOMS [place] OBGYNComment on above:23 weeks gestation of ([facility]); Elevated blood sugar level; Gastroesophageal reflux disease without esophagitisStart: 02-26-2025 End: 83-61-1391Ooemnq flowsheetCorey Law DO Work Phone: NOMS [place] OBGYNStart: 02-26-2025 End: 15-72-4382Pqmjcz flowsheetCorey Law DO Work Phone: NOMS [place] OBGYNStart: 02-11-2025 End: 00-47-7261Byxoaduo flow sheetCorey Law DO Work Phone: NOMS BCP OBComment on above:Second trimester ([facility]); 20 weeks gestation of ([facility])Start: 02-11-2025 End: 09-26-3895lpemarfgghGCIWR FAZIONot AvailableStart: 01-15-2025 End: 23-80-7305tuxjhymghlJCQAP FAZIONot AvailableStart: 01-15-2025 End: 25-13-9916Yzzunbpi flow sheetCorey Law DO Work Phone: noms [facility] OBComment on above:Second trimester ([facility]); 17 weeks gestation of ([facility]); Vaginal discharge; STD exposure; Screening, , for anatomic survey ([facility]); Gastroesophageal reflux in ([facility]); Gestational diabetes mellitus (GDM), antepartum, gestational diabetes method of control unspecified([facility])Start: 01-15-2025 End: 90-87-3172Cbbkvw flowsheetCorey Law DO Work Phone: noms BCP OBStart: 01-15-2025 End: 70-55-3684Qszycj flowsheetCorey Law DO Work Phone: noms BCP OBStart: 01-15-2025 End: 99-17-3444Kbwpukmc Result EncounterAmy Oralia RUIZ Work Phone: noms External Department UnsolicitedStart: 01-07-2025 End: 90-59-2562zwvsbleoodZSPYUVHallie Lamas Watson HospitalStart: 01-07-2025 End: 67-05-5001Twhptcvpog hospital visit by Kayden Steele CNP Work Phone: [facility] LABStart: 12-23-2024 End: 67-93-4225Zcfcoawlc Result EncounterCorey Law DO Work Phone: noms External Department UnsolicitedStart: 12-23-2024 End: 52-20-0229Sdzkyzpsw Result EncounterCorey Law DO Work Phone: noms External Department UnsolicitedStart: 12-20-2024 End: 43-13-3997ctlxhwznisRRXXPMHallie Lamas Watson HospitalStart: 12-20-2024 End: 48-08-9971Kuktnmmnmm hospital visit by [facility] UltrasoundComment on above:Subchorionic hematoma, antepartum, first trimester, not applicable or unspecified fetusStart: 12-18-2024 End: 37-70-8635nkbqxwfspjWYDJD FAZIONot AvailableStart: 12-18-2024 End: 35-76-7376Gyewbofl flow sheetCorey Law DO Work Phone: noms BCP OBComment on above:Second trimester ; 12 weeks gestation of ; Subchorionic hematoma in first trimester, single or unspecified fetus; Diabetes mellitus screeningStart: 12-18-2024 End: 47-11-3440Twcyrf flowsheetCorey Law DO Work Phone: noms BCP OBStart: 12-18-2024 End: 76-35-3486Njjker flowsheetCorey Law DO Work Phone: noms BCP OBStart: 11-14-2024 End: 15-74-8860Zpkwny outpatient visit 5 minutesNoms Bcp Ob Law NurseNOMS BCP OBComment on above:GA: 2r6lVuocs: 11-14-2024 End: 88-84-6266kkjztswknjRDFKI FAZIONot AvailableStart: 07-15-2024 End: 02-08-3692Rizxyat encounter procedureCorey Law DO Work Phone: noms HealthcareStart: 07-15-2024 End: 44-16-6117Wngkiptt preventive med est patient 18-39 yrsCorey Law DO Work Phone: noms BCP OBComment on above:Well woman exam with routine gynecological examStart: 07-15-2024 End: 82-25-5568fprdfqirvnNSLKJ FAZIONot AvailableStart: 07-15-2024 End: 29-77-2891Alhjbfkut Result EncounterCorey Law DO Work Phone: noms External Department UnsolicitedStart: 07-15-2024 End: 07-25-3748Imhrokwde Result EncounterCorey Law DO Work Phone: noms External Department UnsolicitedStart: 05-20-2024 End: 36-99-6151jmgeamboyrGUZQVFShanda Nath HospitalStart: 05-20-2024 End: 15-92-1169Genbhhwzsd hospital visit by Kayden Steele CNP Work Phone: mthz LaboratoryComment on above:Elevated liver enzymes; Mixed hyperlipidemiaStart: 03-06-2024 End: 00-65-5059xrdhupcawgTGFILGHallie Lamas Watson HospitalStart: 02-16-2024 End: 18-92-3370fqpbzmogcoOJMBZLHallie Lamas [facility] Hospitaltart: 08-06-2023 End: 00-53-3412tmrpbozlesKmjsbbja:[facility] Hospitaltart: 07-11-2023 End: 87-81-9354fxzbgxgszhAJFB [facility] Hospitaltart: 03-20-2023 End: 57-66-6861opjnwqyquzPNXWQ [facility] Cent[facility]art: 12-17-2022 End: 59-19-5465bkryybbxhyXD MUKUL LAW .Facility:D3Sckpn: 12-12-2022 End: 10-67-9035xhszaybanzSI KYLIE SEYMOUR .Facility:V7Kgplw: 12-10-2022 End: 22-99-4233vnjdqhgfzmUV MUKUL LAW .Facility:W8Pnxpb: 10-31-2022 End: 58-29-6077thwtbupulyFI MUKUL LAW .Facility:R4Rwcqt: 10-22-2022 End: 13-24-0314lcbatshdzmSDY RAMEY .Facility:B8Oclzb: 10-15-2022 End: 16-11-0626myvbyfziauBU MUKUL LAW .Facility:C9Trrie: 09-12-2022 End: 79-40-1381gvrlmrsiutBT MUKUL LAW .Facility:S9Yjuxi: 09-10-2022 End: 50-59-5817rbnvhebsjlDF MUKUL LAW .Facility:L9Jqpnn: 08-29-2022 End: 42-93-8202ejanxmvbbaLL MUKUL LAW .Facility:D1Uqllw: 08-01-2022 End: 36-51-6991Aohbdbnpsi hospital visit by [facility] LaboratoryStart: 07-04-2022 End: 04-07-6037dtpsbdmfmvQQ MUKUL LAW .Facility:R5Hgxae: 06-23-2022 End: 12-37-9470zdiisgkkfdYP YELENA V WESTFacility:J6Qmdvd: 06-09-2022 End: 32-49-5092cpzkqwukyzTD MUKUL LAW .Facility:G7Bdifa: 06-02-2022 End: 58-81-2702Udvfxdxgaf hospital visit by Kayden Steele CNP Work Phone: mthz LaboratoryStart: 04-18-2022 End: 99-06-9286lapmncjcvbEB MUKUL LAW .Facility:D0Eudxa: 09-23-2021 End: 57-88-8250rvmlsrstozSIJIV [facility]CO [facility] HospitalStart: 09-08-2021 End: 38-00-7177dozrltehbcXLKOX R FAZIORiverside Sikh HospitalStart: 08-25-2021 End: 34-79-7663kiitpsptupFRKHR R FAZIORiverside Sikh HospitalStart: 08-19-2021 End: 61-56-1004qtiaydohxrBLMZF R FAZIORiverside Sikh HospitalStart: 08-10-2021 End: 31-45-4707Tvmmgynhyt hospital visit by Kayden Steele CNP Work Phone: mthz LaboratoryComment on above:AmenorrheaStart: 11-25-2020 End: 20-42-6242Eltbqlaujc hospital [facility] RadiologyComment on above:Frequent UTIStart: 05-04-2020 End: 69-81-8944Gyahxlmujr hospital visit by Kayden Chapman LaboratoryComment on above:Encounter for screening for HIV; Other fatigue; Wellness examinationStart: 03-03-2020 End: 53-36-9795Tcbnqaplxh hospital visit by Brayden Dickinson LaboratoryComment on above:Screening for cervical cancer; Encounter for annual routine gynecological examination Procedures DateProcedureProcedure DetailPerforming ClinicianStart: 97-97-7145BO OB BPP W NON-STRESSCorey Law DO Work Phone: Start: 78-17-1752Ywllo dip stick/tablet rgnt non-auto w/o micrscpCorey Law DO Work Phone: Start: 60-95-3870SH OB BPP W NON-STRESSCorey Law DO Work Phone: Start: 68-97-6671Qgozk dip stick/tablet rgnt non-auto w/o micrscpKristina Guillermo CHRISTOPHER Work Phone: Start: 94-70-5044Aenrf dip stick/tablet rgnt non-auto w/o micrscpAmy Oralia RUIZ Work Phone: Start: 71-86-2600BV OB GROWTHRegina RUIZ Work Phone: Start: 91-74-5830VMN CBC WITH AUTO DIFFRegina RUIZ Work Phone: Start: 61-84-3548Zqnwx dip stick/tablet rgnt non-auto w/o micrscpAaric RUIZ Work Phone: Start: 00-80-4465Semzb dip stick/tablet rgnt non-auto w/o micrscpCorey Law DO Work Phone: Start: 04-74-0773Asyhq dip stick/tablet rgnt non-auto w/o micrscpCorey Law DO Work Phone: Start: 72-23-6191Lsbce dip stick/tablet rgnt non-auto w/o micrscpCorey Law DO Work Phone: Start: 01-08-5328SXQWIRIUG VAGINITIS (HTRX)Regina RUIZ Work Phone: Start: 54-34-6063Dpujk count complete automatedAmy L Oralia CAMPOS Work Phone: Start: 49-02-1064ET OB LESS THAN 14 WEEKS SINGLE OR FIRST GESTATIONCorey Law DO Work Phone: Start: 33-01-0075Qebbc dip stick/tablet rgnt non-auto w/o micrscpCorey Law DO Work Phone: Start: 50-02-0006Odymc dip stick/tablet rgnt non-auto w/o micrscpCorey Law DO Work Phone: Start: 87-55-2179WOI,APTIMA HPV,AGE GDLNCorey Law DO Work Phone: Start: 25-32-4771Gjyrxehrgnq observation [Identifier] in Cervix by Cyto Leonora Rodriguez [facility] Work Phone: Start: 96-40-3383Itwnh Nancy Rodriguez [facility] Work Phone: Start: 60-56-8759Vjiohpaftjlio metabolic Nancy Rodriguez [facility] Work Phone: Start: 62-49-7616Sraexakimmy observation [Identifier] in Cervix by Cyto stainNmgoran RoomStart: 72-37-3035Divzukww Navid Barroso [facility] Work Phone: Start: 89-35-9317Rzawzliegdkl chorionic quantitative Mukul Bill Foy MD Work Phone: Start: 76-35-0839Dbihczyymsgb chorionic quantitative Berto Live [facility] Work Phone: Start: 73-29-5727Ya retroperitoneal real time w/image completeBethrupinder Ricks [facility] Work Phone: Start: 00-73-9981Azstqvlx hiv-1&hiv-2 single result Ynes Rodriguez Work Phone: Start: 87-89-8148Euiyj of thyroid stimulating hormone tshYnes Rodriguez Work Phone: Start: 86-53-8543Wfkmg metabolic panel calcium total Ynes Rodriguez Work Phone: Start: 35-14-0279Ztfoq count complete automatedYnes Rodriguez Work Phone: Start: 95-51-5094Qzamyhxukvn observation [Identifier] in Cervix by Cyto stainYnes Rodriguez [facility] Work Phone: Plan of Treatment DateCare ActivityDetailAuthorStart: 72-50-8825Stdmxgsiy for malignant neoplasm of cervixPap smearBon St. [facility] HospitalStart: 38-44-1625Wwaivltrh for malignant neoplasm of cervixPap smearBon St. [facility] HospitalStart: 08-07-[address] [facility] Medical CenterStart: 07-28-2025 End: 36-00-7162Dqrfhwr encounter procedureNOMS BCP OBStart: 05-28-2025 End: 18-12-0497Ylfldgd encounter sqmashnfh34/05/2025 2:30 PM EST Routine NOMS Heri SANTO [address] [place], [id number] Regina Barton PA [address] [address] NOMS eHri OBGYNStart: 05-28-2025 End: 96-90-6575Vqjdkdupelko / ancillary services jufmofdnnq68/05/2025 2:00 PM EST Ancillary Procedure [facility] Heri SANTO [address] [place] [address] NOMS Heri OBGYNStart: 60-51-9959Mpinq panelLipids [facility] CenterStart: 05-14-2025 End: 71-36-3262Osnqstu encounter kwegjoylc77/22/2025 2:50 PM EDT Routine [facility] [place] [facility] [address] [place], [id number] Mukul Foy DO [address] [place], [place] [address] NOMS Heri OBGYNStart: 05-14-2025 End: 99-58-9505LK for pregnancyUS OB follow up transabdominal approach Imaging Routine Insulin controlled gestational diabetes mellitus (GDM) during , antepartum ([facility]) Expected: 05/14/2025, Expires: 09/14/2025[facility] Work Phone: comment on above:Expected: 05/14/2025, Expires: 09/14/2025Start: 05-14-2025 End: 41-96-1140Uprgkru encounter azaymiynd26/22/2025 11:40 AM EDT Office Visit [facility] [address] Melissa Hendricks [place] [address] Ynes Rodriguez, [facility] [address] [address] 6 month f/[facility] CareComment on above:6 month f/uStart: 04-30-2025 End: 47-07-5530Hciohyl encounter kgtetcphg58/08/2025 3:00 PM EDT Routine [facility]BG[facility] [address] [place], [id number] Ceasar Li, ASHWIN [address] [place] [address] NOMS Heri OBGYNStart: 04-14-2025 End: 40-95-8562Pyvzwxa encounter cgpglafgr25/22/2025 3:20 PM EDT Routine [facility] [address] [place], [id number] Regina Barton PA [address] [place] [address] NOMRenzo Heri OBGYNStart: 04-03-2025 End: 92-13-5274Ekjqqud encounter yvcynvgkw63/11/2025 3:30 PM EDT Routine NOMRenzo [place] OBCIARANN [address] [place], [id number] Regina Barton PA [address] [place] [address] NOMS [place] OBGYNStart: 04-03-2025 End: 46-98-0670GWT W Auto Differential panel - BloodCBC and differential Lab Routine Dizziness Anemia, unspecified type Expected: 04/03/2025 (Approximate), Expires: 04/03/2026[facility] HealthcareComment on above:Expected: 04/03/2025 (Approximate), Expires: 04/03/2026Start: 04-03-2025 End: 47-28-4224ZV biophysical profile w non stress testUS biophysical profile w non stress test Imaging Routine 28 weeks gestation of ([facility]) Third trimester ([facility]) Gestational diabetes mellitus (GDM), antepartum, gestational diabetes method of control unspecified ([facility]) History of miscarriage Expected: 04/03/2025 (Approximate), Expires: 10/01/2025[facility] HealthcareComment on above:Expected: 04/03/2025 (Approximate), Expires: 10/01/2025Start: 04-03-2025 End: 72-97-8329LE for pregnancyUS OB follow up transabdominal approach Imaging Routine 28 weeks gestation of ([facility]) Third trimester ([facility]) Gestational diabetes mellitus (GDM), antepartum, gestational diabetes method of control unspecified ([facility]) History of miscarriage Expected: 04/03/2025, Expires: 08/03/2025[facility] Work Phone: comment on above:Expected: 04/03/2025, Expires: 08/03/2025Start: 01-31-9118ROFTD-19 Vaccine ( season)COVID-19 Vaccine ( season)NOMS HealthcareStart: 17-81-1231Wpxnyxsxf vaccinationNOMS HealthcareStart: 53-63-9378Bzttlhidn vaccinationFlu vaccine (Season Ended)[facility]erta HealthStart: 02-11-2025 End: 93-48-2764Vpgjlsj encounter jwmhvwwyo71/22/2025 2:10 PM EDT Routine [facility] [address] [place] [place] [address] Mukul Foy, DO [address] [place] [address] NOMS BCP OBStart: 02-11-2025 End: 50-00-4731Vlvtyritttkt / ancillary services ijdhcfmoxe11/22/2025 1:00 PM EDT Ancillary Procedure [facility] [place] [address] [place] [address] [phone] BCP OBStart: 01-15-2025 End: 45-35-6307Jggwowx encounter zjjshevmj67/25/2025 3:50 PM EDT Routine [facility] [address] [facility] [place] [address] Mukul Foy, DO [address] [place] [address] NOMS BCP OBStart: 01-15-2025 End: 30-38-1132Vdvlh fetoprotein, maternalAlpha fetoprotein, maternal Lab Routine Second trimester ([facility]) 17 weeks gestation of ([facility]) Expected: 01/15/2025 (Approximate), Expires: 07/17/2025[facility] Comment on above:Expected: 01/15/2025 (Approximate), Expires: 07/17/2025Start: 01-15-2025 End: 44-47-6536IU for pregnancyUS OB 14+ weeks anatomy scan Imaging Routine Screening, , for anatomic survey ([facility]) Expected: 01/15/2025, Expires: 04/17/2025[facility] HealthcareComment on above:Expected: 01/15/2025, Expires: 04/17/2025Start: 12-18-2024 End: 28-54-3719Jikrwpd encounter jerlvntux01/28/2025 3:40 PM EDT Routine [facility] BCP OB [address] [place] [address] Mukul Foy, DO [address] [place] [place] [address] NOMS BCP OBStart: 12-18-2024 End: 03-81-0959MBB panel - Blood by Automated countCBC Lab Routine Diabetes mellitus screening Expected: 12/18/2024 (Approximate), Expires: 12/18/2025[facility] Work Phone: comment on above:Expected: 12/18/2024 (Approximate), Expires: 12/18/2025Start: 12-18-2024 End: 32-42-9379Hgaumqqgzvo of glucose 1 hour after glucose challenge for glucose tolerance testGlucose tolerance, 1 hour Lab Routine Diabetes mellitus screening Expected: 12/18/2024 (Approximate), Expires: 12/18/2025[facility] HealthcareComment on above:Expected: 12/18/2024 (Approximate), Expires: 12/18/2025Start: 12-18-2024 End: 55-53-9348FH Pelvis transvaginalUS OB transvaginal Imaging Routine Subchorionic hematoma in first trimester, single or unspecified fetus Expected: 12/18/2024, Expires: 03/20/2025[facility] Work Phone: comment on above:Expected: 12/18/2024, Expires: 03/20/2025Start: 11-14-2024 End: 98-61-2017SRC/RhABO/Rh Lab Routine Missed menses , unspecified gestational age Expected: 11/14/2024 (Approximate), Expires: 11/14/2025[facility] HealthcareComment on above:Expected: 11/14/2024 (Approximate), Expires: 11/14/2025Start: 11-14-2024 End: 35-05-5368Rbxvd type and Indirect antibody screen panel - BloodType and screen Lab Routine Missed menses , unspecified gestational age Expected: 11/14/2024 (Approximate), Expires: 11/14/2025[facility] HealthcareComment on above:Expected: 11/14/2024 (Approximate), Expires: 11/14/2025Start: 11-14-2024 End: 38-10-4941Cadco of abuse panel - Urine by Screen methodRapid drug screen, urine Lab Routine , unspecified gestational age Encounter for supervision of normal first in first trimester Expected: 11/14/2024 (Approximate), Expires: 11/14/2025[facility] HealthcareComment on above:Expected: 11/14/2024 (Approximate), Expires: 11/14/2025Start: 11-06-2024 End: 84-78-1672QI Pelvis transvaginalUS OB transvaginal Imaging Routine Missed menses Expected: 11/06/2024, Expires: 02/05/2025[facility] Work Phone: comment on above:Expected: 11/06/2024, Expires: 02/05/2025Start: 10-16-2024 End: 12-85-3830Pvshbvd encounter kjahxwtvx72/26/2025 1:40 PM EDT Office Visit [address] [place] [address] Ynes Rodriguez, [facility] [address] [place] [address] [address] [place] [address] [facility] Primary CareComment on above:WellnessStart: 63-33-1538Mvaylsqwdo ScreenDepression ScreenBon Secours [facility] HospitalStart: 06-04-2024 End: 38-94-2286Yjvbpuv encounter wjwcetaqe99/12/2024 11:45 AM EST Office Visit [address] [place] [address] Jose Cruz Raza MD [address] [facility] [address] wt [facility] Primary CareComment on above:wt managementStart: 05-22-2024 End: 84-26-9460Keyifeu encounter vhmwevkni19/30/2024 11:00 AM EDT Office Visit [facility] [address] [place] [address] [address] [place] [address] Ynes Rodriguez, [facility] [address] [place] [address] LFT + HLD f/u(RS 10/17/23 appt)[facility] Primary CareComment on above:LFT + HLD f/u(RS 10/17/23 appt)Start: 04-73-3866KRIXB-19 Vaccine ( season)COVID-19 Vaccine ( season)[facility] CenterStart: 92-97-0263TLMGA-19 Vaccine ( season)COVID-19 Vaccine ( season)[facility] CenterStart: 43-06-7898Jjlbbeloa vaccinationInfluenza Vaccine (#1)[facility]Start: 17-81-8700Tkaumpskq vaccinationFlu vaccine (#1)[facility] CenterStrothsay: 91-31-1625Bwmsewxqh for malignant neoplasm of cervixBrecksville Va / Crille HospitalStart: 26-98-6574Fujmbpkkyn ScreenDepression ScreenBON AULTMAN ORRVILLE HOSPITALStrothsay: 07-11-2022 End: 68-85-6985Aaihdao encounter zhmvuqgsc25/19/2022 Office Visit Primary Care Ynes Rodriguez, KITCHEN HAND - BURR BENCH HAND [address] [facility] [address] [place] [address] [facility] Start: 05-19-2022 End: 53-26-5146Tlhoalh encounter cmllmfnva53/27/2022 Office Visit Obstetrics and Gynecology Berto Live, KITCHEN HAND - CNM [address] [facility] [address] [place] [address] [facility]: 03-18-2022 End: 62-57-8280Zoyggzg encounter fkcingibc83/26/2022 Office Visit Family Medicine Ynes Rodriguez, KITCHEN HAND - BURR BENCH HAND [address] [facility] [address] [place] [address] [facility]: 39-41-4639Dzmqytjya C screeningHepatitis C screenMer HealthComment on above:Postponed from 1998 (Patient Refused)Start: 21-55-4210Qlldetdfp vaccinationFlu vaccine (#1)[facility]Start: 87-73-2618Dmmvfcohj for Chlamydia trachomatisBrecksville Va / Crille HospitalStart: 09-24-2021 Influenza vaccinationFlu vaccine (Season Ended)[facility] Work Phone: comment on above:Postponed from 03/24/2021 (Patient Refused)Start: 45-28-4739Zkchvuckze MonitoringDepression MonitoringBrecksville Va / Crille Hospital Start: 98-29-5340INZKL-19 Vaccine (3 - Booster for Pfizer series)COVID-19 Vaccine (3 - Booster for Pfizer series)[facility]: 24-81-3715ADnS/Tdap/Td vaccine (7 - Td or Tdap)DTaP/Tdap/Td vaccine (7 - Td or Tdap)[facility]: 82-49-5568YTeO/Tdap/Td vaccine (7 - Td)DTaP/Tdap/Td vaccine (7 - Td)[place], [place]: 16-10-3365Xtgxicmuq vaccinationFlu vaccine (#1)[facility] Start: 92-44-0111Prcveyumk for Chlamydia trachomatisChlamydia screenKettering Health Springfieldart: 75-00-9140ODHEW-19 Vaccine (3 - Booster for Pfizer series) COVID-19 Vaccine (3 - Booster for Pfizer series)[facility]: [facility]21 End: 44-84-8148Hazbftb encounter htpkajwpa25/20/2021 Office Visit Family Medicine Ynes Rodriguez, [facility] [address] [place] [address] [phone] [facility] 11-30-2020 End: 23-99-6471Vxoarim encounter fftuokhha13/10/2021 Office Visit Urology Chris Moe MD [address], [address] [place], [place] [phone] [facility]: 05-28-2020 End: 57-25-8161Dggbxebapmte53/05/2020 Telemedicine Family Medicine Ynes Rodriguez, [facility] [address] [place] [address] [phone] [facility] Start: 40-86-9578Clshhfpgf vaccinationFlu vaccine (#1)[facility]: 34-60-1828Zwqniipwr for Chlamydia trachomatisChlamydia [place], [place]: 33-04-5237Grwfgjfqc for malignant neoplasm of cervixCervical cancer [facility]art: 45-68-0193Hzgbfkarg B Vaccines (1 of 3 - 19+ 3- dose series)Hepatitis B Vaccines (1 of 3 - 19+ 3-dose series)[facility] Start: 15-47-3197Hwqlzsjdh C screeningHepatitis C screenBON [facility]ULT[facility] Start: 06-75-0230ZCFLI-19 Vaccine (1)COVID-19 Vaccine (1)[facility] Work Phone: start: 77-23-6557PMW screeningHIV [place], [place]St[place]: 68-25-9510RYV Vaccines (1 - 3-dose series)HPV Vaccines (1 - 3-dose series)[facility] HealthcareStart: 75-93-6104Zjllrvu of varicella vaccinationVaricella Vaccines (1 of 2 - 13+ 2-dose series)[facility] HealthcareStart: 2005 DTaP/Tdap/Td Vaccines (1 - Tdap)DTaP/Tdap/Td Vaccines (1 - Tdap)[facility] Healthcare Start: 84-17-1995IDV Vaccines (1 of 1 - Standard series)MMR Vaccines (1 of 1 - Standard series)[facility] HealthcareStart: 83-85-9190Cwgrupgyh C screeningHepatitis C screenMercy Health Work Phone: bacteria identified in Urine by CultureUrine culture Microbiology Routine Missed menses Ordered: 11/14/2024[facility] HealthcareComment on above:Ordered: 5Bacteria identified in Urine by CultureUrine culture Microbiology Routine UTI symptoms Ordered: 04/03/2025[facility] HealthcareComment on above:Ordered: 04/03/2025 End: 03-03-2020C.trachomatis N.gonorrhoeae DNA, Thin PrepC.trachomatis N.gonorrhoeae DNA, Thin Prep Microbiology Routine Encounter for annual routine gynecological examination 1 Occurrences starting 03/03/2020 until 03/03/2020 [facility], KYComment on above:1 Occurrences starting 03/03/2020 until 03/03/2020C.trachomatis N.gonorrhoeae DNA, Thin PrepC.trachomatis N.gonorrhoeae DNA, Thin Prep Microbiology Routine Encounter for annual routine gynecological examination 03/03/2020 5:08 PM [facility] KYCBC W Auto Differential panel - BloodCBC and differential Lab Routine Missed menses , unspecified gestational age Ordered: 11/14/2024[facility] HealthcareComment on above: Ordered: 5CHLAMYDIA TRACHOMATIS (GENITO/STI)CHLAMYDIA TRACHOMATIS (GENITO/STI) Lab Routine STD exposure Ordered: 01/15/2025[facility] HealthcareComment on above:Ordered: 5Cytology Cervical or vaginal smear or scraping study Pap Smear Pathology and Cytology Routine Well woman exam with routine gynecological exam Ordered: 07/15/2024[facility] Healthcare Work Phone: comment on above:Ordered: 07/15/2024 End: 38-81-4302Cuszjrbiuvjjl procedure, preparation of smear, genital sourcePAP SMEAR Lab Routine Screening for cervical cancer 1 Occurrences starting 03/03/2020 until 03/03/2020[facility], CTComment on above:1 Occurrences starting 03/03/2020 until 03/03/2020Hemoglobin A1c/Hemoglobin.total in Blood Hemoglobin A1c Lab Routine Missed menses , unspecified gestational age Ordered: 11/14/2024[facility] HealthcareComment on above:Ordered: 11/14/2024Hepatitis B virus surface Ag [Presence] in Serum or Plasma by ImmunoassayHepatitis B surface antigen Lab Routine Missed menses , unspecified gestational age Ordered: 11/14/2024[facility] HealthcareComment on above:Ordered: 11/14/2024Hepatitis C virus Ab [Presence] in Serum or Plasma by ImmunoassayHepatitis C antibody Lab Routine Missed menses , unspecified gestational age Ordered: 11/14[facility] HealthcareComment on above:Ordered: 11/14/2024HIV-1/HIV-2 antigen/antibody combination immunoassayHIV-1 and HIV-2 antibodies Lab Routine Missed menses , unspecified gestational age Ordered: 11/14/2024[facility] HealthcareComment on above:Ordered: 11/14/2024Neisseria gonorrhoeae DNA [Presence] in Unspecified specimen by ANISA with probe detectionNeisseria gonorrhea DNA probe, direct Lab Routine STD exposure Ordered: 01/15/2025[facility] HealthcareComment on above:Ordered: 01/15/2025Reagin Ab [Presence] in Serum by RPRRPR Lab Routine Missed menses , unspecified gestational age Ordered: 11/14/2024[facility] HealthcareComment on above:Ordered: 11/14/2024Rubella antibody, IgGRubella antibody, IgG Lab Routine Missed menses , unspecified gestational age Ordered: 11/14/2024[facility] HealthcareComment on above:Ordered: 11/14/2024SURESWAB(R) ADVANCED VAGINITIS PLUS, TMASURESWAB(R) ADVANCED VAGINITIS PLUS, TMA Pathology and Cytology Routine Vaginal discharge Ordered: 01/15/2025 [facility] Healthcare Work Phone: comment on above:Ordered: 01/15/2025US Pelvis transvaginalUS OB transvaginal Imaging Routine Missed menses 11/14/2024 2:38 PM [facility] End: 83-92-3286Yr uterus 14 wk [facility]abdl 07[facility] Work Phone: Comment on above:1 Occurrences starting 12/20/2024 until 12/20/2024 Immunizations Immunization DateImmunizationNotesCare OqowulloFhcfbwng93-34-6915TIVMJ-14, Pfizer Purple top, DILUTE for use, 12+ yrs, 30mcg/0.3mL doseHannah Rodriguez [facility] [employer] [facility] [employer] Work Phone: [facility] [employer] Phone: [phone]-64, Pfizer Purple top, DILUTE for use, 12+ yrs, 30mcg/0.3mL doseHannah Rodriguez [employer] [facility] [employer] Work Phone: [facility] HospitalRyqvqn65-44-1034dxpsf papilloma virus vaccine, quadrivalentTrinity Health System [facility] Campus, FW94-25-9630qgauw papilloma virus vaccine, quadrivalentTrinity Health System [facility] Campus, ZG07-03-9885dqohc papilloma virus vaccine, quadrivalentTrinity Health System East Campus, [place] 77-96-9052jzeulhrhssqtk polysaccharide (groups A, C, Y and W-135) diphtheria toxoid conjugate vaccine (MCV4P)[facility], WI49-52-9543 meningococcal ACWY vaccine, unspecified formulationTrinity Health [facility], GG92-37-3809Clkbtmnon A Ped/Adol (Vaqta)[facility], [place] 93-94-4747ojzdjpefa A vaccine, pediatric/adolescent dosage, 2 dose schedule Ynes Rodriguez [employer] [facility] [employer] [employer] Work Phone: [facility] [employer] Work Phone: [phone] toxoid, reduced diphtheria toxoid, and acellular pertussis vaccine, adsorbedTrinity Health System [facility] Campus, [place] 90-56-8817Bqntjtjmk A Ped/Adol (Vaqta)[facility], [place] 23-85-3748dwqyyikbk A vaccine, pediatric/adolescent dosage, 2 dose schedule Ynes Rodriguez [facility] J [facility] Work Phone: [facility] Work Phone: [phone] virus vaccineTrinity Health System [facility] Campus, HK44-86-6373ajnrnojfsmqdr polysaccharide (groups A, C, Y and W-135) diphtheria toxoid conjugate vaccine (MCV4P)[facility], [place] 47-83-3341rtmvwnfvvz, tetanus toxoids and acellular pertussis vaccineTrinity Health System [facility], TJ36-83-1579trylaos, mumps and rubella virus vaccine [facility], SX89-56-3521affnbtjrhn vaccine, inactivated [facility], MW16-61-9091evacpbsjam, tetanus toxoids and acellular pertussis vaccineTrinity Health [facility], TN36-40-0715 haemophilus influenzae type b vaccine, PRP-T conjugateTr[facility], TU46-83-7889qnfzwwuuvi vaccine, inactivatedTr[facility], LM90-09-3452imbyffu, mumps and rubella virus vaccineOhioHealth Dublin Methodist Hospital, NV92-07-6181dghrutltj virus vaccineTr[facility], YX02-26-5768llmuscjwb B vaccine, pediatric or pediatric/adolescent dosageTr[facility], PC04-45-7634cspukuxbqz, tetanus toxoids and acellular pertussis vaccineTr[facility], EW02-49-1434 haemophilus influenzae type b vaccine, PRP-T conjugateTr[facility], FP00-08-1908zmayseksqs, tetanus toxoids and acellular pertussis vaccineTr[facility], VX54-02-1424dnzsuzlkppx influenzae type b vaccine, PRP-T conjugateTr[facility], TX80-53-5980 poliovirus vaccine, inactivatedTr[facility], ST13-28-5066 haemophilus influenzae type b vaccine, PRP-T conjugateTr[facility], TA91-41-3813egfivtyflt vaccine, inactivatedTr[facility], IA76-63-8931kgxypvfydy, tetanus toxoids and acellular pertussis vaccineMercy Health St. [facility]03-18-1999hepatitis B vaccine, pediatric or pediatric/adolescent dosageTr[facility] Health [facility], AN13-48-5591 hepatitis B vaccine, pediatric or pediatric/adolescent dosageOhioHealth Dublin [facility] Hospital, [place] Payers DatePayer CategoryPayerPolicy [id number] SPECIALTY BILLING [facility] [id number] 2022-Present [address] [place] [address] [place] [address] [id number] Health InsuranceMEDICAL MUTUAL Member Subscriber Plan / Payer (Effective 2022-Present) Name: Vinny Downey Relation to Subscriber: Spouse Name: Nasreen Abhishek Linda Date of : 1996 Address: [address] [place] [id number] Payer ID: Not on file Type: Not on file Address: [facility] [address] [place] [id number] [id number] 840.1.982946.3.5[id number] 09.08.830.1.749563.3.5[id number] 2.16.840.1.787558.3.57[id number] 2.16.840.1.531900.3.579.2.92514-20-2546Ebditso0749722 2.16.840.1.603522.3.57[id number] 2.16.840.1.503511.3.57[id number] 2.16.840.1.583240.3.579.2.88441-41-5521Fqjfnfb2952667 2.840.1.760125.3.579.[id number] 2.840.1.308428.3.579.2.80675-00-4456Stcvxyt3424331 2.840.1.393820.3.57[id number] 2.840.1.233374.3.579.2.09747-47-6762Lvswoer3925433 2.840.1.966066.3.579.2.41385-52-3787Psvrpxn0680270 2.840.1.638614.3.57[id number] 2.840.1.123226.3.57[id number] 2.840.1.509754.3.579.2.01653-56-9302Sqcilep9113118 2.840.1.354356.3.579.2.35910-10-5800Qlrxbbz2383735 2.16.840.1.808440.3.579.2.78930-44-3431Zswgjbc7811006 2.16840.1.994358.3.579.2.[id number] 2.16.840.1.839297.3.579.2.89611-69-4425Abmvapj42938328 2.16.840.1.118447.3.579.2.17514-44-8722Kofylsy26840175 2.16840.1.613468.3.579.2.40991-18-9151Khxczqg24874096 2.840.1.952170.3.57[id number] 2.0.1.271421.3.579.2.41367-63-9430Hcquxjx75813822 2.840.1.821372.3.579.2.094586-89-2580Xftrhzz67709031 2.0.1.925012.3.579.2.701118-51-1976Sbqucvk25032841 2.0.1.472068.3.57[id number] 2.0.1.901306.3.579.2.198445-27-5735Mfsymmm10005173 2..1.888738.3.579.2.225733-44-6065Qratmfr92596355 2.0.1.052257.3.579.2.931071-89-1352Oelrnei31424828 2.0.1.258237.3.579.2.683823-39-1118Iokveit60108351 2.840.1.157174.3.579.2.212750-56-7728Yurkklw04524123 2.840.1.646303.3.579.2.355820-46-4193Nrwqqdg9988428 2.16.840.1.258720.3.579.2.035184-77-3076Sebinkb2885010 2.16.840.1.602849.3.579.2.604800-57-2560Gvzygvw0541077 2.16.840.1.445855.3.579.2.051724-32-4902Mocwolg3682728 2.16.840.1.059314.3.579.2.342573-19-0529Kssi-abv72-67-3434HeulxhrMKNSX4442768 1.2.840.650435.1.13.239.2.7.3.002992.10811-22-3006Kinufbh42940349560381-75-4037 [id number] 2.16.840.1.567723.3.579.2.593 Social History DateTypeDetailFacilityStart: 03-03-2020 End: 49-52-2652Lxehgkk smoking status NHISNever smokerMer[facility] Health [facility]: 03-03-2020 End: 55-26-1633Vqivvqq use and exposureNever usedMercy Health Kings [facility] Hospital: 03-03-2020 End: 89-10-5372Spwhweu intakeCurrent drinker of alcohol (finding)[facility]: 32-72-1847Ltudlhq CommentsocialMercy Health Kings [facility] Hospital: 66-14-2163Gig Assigned At BirthNot on [facility]: 05-01-2020 End: 64-95-5603Irazsgy SDOH Smfkrtaii9SalyiMercy Health Kings Mills Hospital: 05-01-2020 End: 85-00-6001Empqfic SDOH Food Pxogw9QfqteMercy Health Kings Mills Hospital: 05-01-2020 History SDOH Transport Rmm2SrhxdR[place], KYExposure to SARS-CoV-2 (event)Not sureCoshocton [facility] Center: 05-01-2024 End: 12-84-1164Tdlvbaigv beverage intakeEx-drinker (finding)[facility]imonHealth[facility] CenterStart: 05-01-2024 End: 29-75-8291Kgaxtzk of Social functionBon Secours St. Francis Medical CenterStart: 05-01-2024 End: 82-83-5233Pvnmcjy use panelBon Secours St. Francis Medical CenterStart: 16-86-2478Hjw hard is it for you to pay for the very basics like food, housing, medical care, and heatingNot hard at allBon Secours St. Francis Medical Center(I/We) worried whether (my/our) food would run out before (I/we) got money to buy more.Never trueBon St. Francis HospitalStart: 04-43-4592Mlo assigned at birthFemaleBon St. Francis HospitalStart: 69-94-2831Gxplny identityIdentifies as female gender (finding)[facility] HospitalGenSpera [facility] HospitalStart: 07-05-2023 End: 22-24-2154Ryhcpnqqy beverage intakeLifetime non-drinker (finding)[facility] HealthcareStart: 15-00-3961FvlynabhbLXCX HealthcareHas the electric, gas, oil, or water company threatened to shut off services in your home in past 12MoNoBon St. Francis HospitalStart: 08-15-4711WgpWpwguw (finding)[facility] Medical Equipment Procedure CodeEquipment CodeEquipment Original TextEquipment IdentifierDatesUse as [id number]: 01-15-2025 End: 27-85-0652Dulggb 1 each under the skin [id number]: 04-07-2025 End: 07-16-2025 Goals DatePatient GoalDesired Activity/StatePersonal health goal Clinical Notes 03-20-2023 to 05-14-2025 Note Date & NiejEmunZrlhlqal29-47-2695 History of Present illness Narrative* Criselda Aguirre [...] Frequent UTI 11/30/2020 23 weeks gestation of ([facility]) 02/26/2025 Elevated blood sugar level 02/26/2025 Resolved Ambulatory Problems Diagnosis Date Noted Missed period 01/13/2023 Past Medical History: Diagnosis Date GDM (gestational diabetes mellitus) ([facility]) HISTORY PAST MEDICAL HISTORY SOCIAL HISTORY Past Medical History: Diagnosis Date GDM (gestational diabetes mellitus) ([facility]) Social History Tobacco Use Smoking status: Never [...] nursing note reviewed. Exam conducted with a director of development and marketing present. Vitals: Estimated body mass index is 37.47 kg/m as calculated from the following: Height as of 01/30/23: 5' 6 . Weight as of this encounter: 232 lb 1.9 oz. BP: 110/70 Patient's last menstrual period was 09/16/2024. Assessment/Plan ICD-10-CM 1. Third trimester ([facility]) Z34.93 2. 34 weeks gestation of ([facility]) Z3A.34 POCT urinalysis dipstick manually [...] of: Mukul Foy DO documented in this encounterBarton County Memorial HospitalAatpynyues92-39-7067 History of Present illness Narrative* Ceasar Li [...] Frequent UTI 11/30/2020 23 weeks gestation of ([facility]) 02/26/2025 Elevated blood sugar level 02/26/2025 Resolved Ambulatory Problems Diagnosis Date Noted Missed period 01/13/2023 Past Medical History: Diagnosis Date GDM (gestational diabetes mellitus) ([facility]) HISTORY PAST MEDICAL HISTORY SOCIAL HISTORY Past Medical History: Diagnosis Date GDM (gestational diabetes mellitus) ([facility]) Social History Tobacco Use Smoking status: Never [...] nursing note reviewed. Exam conducted with a director of development and marketing present. Vitals: Estimated body mass index is 36.7 kg/m as calculated from the following: Height as of 01/30/23: 5' 6 . Weight as of this encounter: 227 lb 6.4 oz. BP: 110/70 Patient's last menstrual period was 09/16/2024. ASSESSMENT & PLAN ICD-10-CM 1. Third trimester ([facility]) Z34.93 2. 32 weeks gestation of ([facility]) Z3A.32 POCT urinalysis dipstick manually resulted Return [...] of: Ceasar Li NP documented in this encounterBarton County Memorial HospitalGhygpqbtdi06-23-8036 History of Present illness Narrative* JOSEPH Bowie [...] Frequent UTI 11/30/2020 23 weeks gestation of ([facility]) 02/26/2025 Elevated blood sugar level 02/26/2025 Resolved Ambulatory Problems Diagnosis Date Noted Missed period 01/13/2023 Past Medical History: Diagnosis Date GDM (gestational diabetes mellitus) ([facility]) HISTORY PAST MEDICAL HISTORY SOCIAL HISTORY Past Medical History: Diagnosis Date GDM (gestational diabetes mellitus) ([facility]) Social History Tobacco Use Smoking status: Never [...] ASSESSMENT & PLAN ICD-10-CM 1. Third trimester ([facility]) Z34.93 POCT urinalysis dipstick manually resulted 2. 30 weeks gestation of ([facility]) Z3A.30 Return OB: Patient presents today for [...] behalf of: JOSEPH Bowie documented in this encounterBarton County Memorial HospitalIlhqzuxadr31-22-9072 History of Present illness Narrative* JOSEPH Bowie [...] Frequent UTI 11/30/2020 23 weeks gestation of ([facility]) 02/26/2025 Elevated blood sugar level 02/26/2025 Resolved Ambulatory Problems Diagnosis Date Noted Missed period 01/13/2023 Past Medical History: Diagnosis Date GDM (gestational diabetes mellitus) ([facility]) HISTORY PAST MEDICAL HISTORY SOCIAL HISTORY Past Medical History: Diagnosis Date GDM (gestational diabetes mellitus) ([facility]) Social History Tobacco Use Smoking status: Never [...] PLAN ICD-10-CM 1. 28 weeks gestation of ([facility]) Z3A.28 POCT urinalysis dipstick manually resulted US OB follow up transabdominal approach US biophysical profile w non stress test 2. Third trimester ([facility]) Z34.93 POCT urinalysis dipstick manually resulted US OB follow up transabdominal approach US biophysical profile w non stress test 3. Dizziness R42 CBC and differential CBC and differential 4. Gestational diabetes mellitus (GDM), antepartum, gestational diabetes method of control unspecified ([facility]) O24.419 US OB follow up transabdominal approach [...] behalf of: JOSEPH Bowie documented in this encounterBarton County Memorial HospitalQknabouxuw84-01-1335 History of Present illness Narrative* Mukul Foy [...] Frequent UTI 11/30/2020 23 weeks gestation of ([facility]) 02/26/2025 Elevated blood sugar level 02/26/2025 Resolved Ambulatory Problems Diagnosis Date Noted Missed period 01/13/2023 Past Medical History: Diagnosis Date GDM (gestational diabetes mellitus) ([facility]) No family history on file. Social History [...] nursing note reviewed. Exam conducted with a director of development and marketing present. Vitals: Estimated body mass index is 36.12 kg/m as calculated from the following: Height as of 01/30/23: 5' 6 . Weight as of this encounter: 223 lb 12.8 oz. BP: 100/70 Patient's last menstrual period was 09/16/2024. Assessment/Plan Encounter Diagnosis: ICD-10-CM 1. 25 weeks gestation of ([facility]) Z3A.25 POCT urinalysis dipstick manually resulted 2. Second trimester ([facility]) Z34.92 POCT urinalysis dipstick manually resulted 3. [...] of: Mukul Foy DO documented in this encounterBarton County Memorial HospitalHbjcvrxcnk71-67-8349 History of Present illness Narrative* Ceasar Li [...] Frequent UTI 11/30/2020 23 weeks gestation of ([facility]) 02/26/2025 Elevated blood sugar level 02/26/2025 Resolved Ambulatory Problems Diagnosis Date Noted Missed period 01/13/2023 Past Medical History: Diagnosis Date GDM (gestational diabetes mellitus) ([facility]) HISTORY PAST MEDICAL HISTORY SOCIAL HISTORY Past Medical History: Diagnosis Date GDM (gestational diabetes mellitus) ([facility]) Social History Tobacco Use Smoking status: Never [...] nursing note reviewed. Exam conducted with a director of development and marketing present. Vitals: Estimated body mass index is 35.96 kg/m as calculated from the following: Height as of 01/30/23: 5' 6 . Weight as of this encounter: 222 lb 12.8 oz. BP: 110/70 Patient's last menstrual period was 09/16/2024. ASSESSMENT & PLAN ICD-10-CM 1. 23 weeks gestation of ([facility]) Z3A.23 POCT urinalysis dipstick manually resulted pantoprazole [...] of: Mukul Foy DO documented in this encounterBarton County Memorial HospitalRreetwvofk19-09-8757 History of Present illness Narrative* JOSEPH Bowie [...] History: Diagnosis Date GDM (gestational diabetes mellitus) ([facility]) HISTORY PAST MEDICAL HISTORY SOCIAL HISTORY Past Medical History: Diagnosis Date GDM (gestational diabetes mellitus) ([facility]) Social History Tobacco Use Smoking [...] ASSESSMENT & PLAN ICD-10-CM 1. Second trimester ([facility]) Z34.92 metFORMIN XR (Glucophage-XR) 500 MG 24 hr tablet POCT urinalysis dipstick manually resulted 2. 20 weeks gestation of ([facility]) Z3A.20 metFORMIN XR (Glucophage-XR) 500 [...] of: Mukul Foy DO documented in this encounterBarton County Memorial HospitalNkjzefpahb15-62-6371 History of Present illness Narrative* Criselda Aguirre, DEVELOPMENT DIRECTOR - 01/15/2025 3:50 PM EDT Reason for [...] History: Diagnosis Date GDM (gestational diabetes mellitus) ([facility]) HISTORY PAST MEDICAL HISTORY SOCIAL HISTORY Past Medical History: Diagnosis Date GDM (gestational diabetes mellitus) ([facility]) Social History Tobacco Use Smoking status: Never [...] nursing note reviewed. Exam conducted with a director of development and marketing present. Vitals: Estimated body mass index is 34.19 kg/m as calculated from the following: Height as of 01/30/23: 5' 6 . Weight as of this encounter: 211 lb 12.8 oz. BP: 118/72 Patient's last menstrual period was 09/16/2024. ASSESSMENT & PLAN ICD-10-CM 1. Second trimester ([facility]) Z34.92 Alpha fetoprotein, maternal Alpha fetoprotein, maternal 2. 17 weeks gestation of ([facility]) Z3A.17 Alpha fetoprotein, maternal Alpha fetoprotein, maternal 3. Vaginal discharge N89.8 SURESWAB(R) ADVANCED VAGINITIS PLUS, TMA 4. STD exposure Z20.2 CHLAMYDIA TRACHOMATIS (GENITO/STI) Neisseria gonorrhea DNA probe, direct 5. Screening, , for anatomic survey ([facility]) Z36.89 US OB 14+ weeks anatomy scan 6. Gastroesophageal reflux in ([facility]) O99.619 omeprazole (PriLOSEC) [address] capsule K21.9 7. Gestational diabetes mellitus (GDM), antepartum, gestational diabetes method of control unspecified ([facility]) O24.419 glucose blood test strip Return OB/Annual [...] behalf of: alesha bowie documented in this encounterBarton County Memorial [id number] History of Present illness Narrative* JOSEPH Bowie [...] Documented by JOSEPH Bowie documented in this encounterBarton County Memorial [id number] History of Present illness Narrative* Elizabeth Ware [...] Nurse Note: Patient uncertain of doing the [place] screening. Pt was advised both labs and [...] or undercooked meat, and stay away from [facility]. Patient has also been advised to [...] by: Elizabeth Ware MA documented in this encounterBarton County Memorial [id number] History of Present illness Narrative* Elizabeth Ware [...] nursing note reviewed. Exam conducted with a director of development and marketing present. Vitals: Estimated body mass index is [...] of: Mukul Foy DO documented in this encounterBarton County Memorial [id number] NoteHNO ID: [id number] Author: LANG CARREON APRN.[facility] Service: ? Author Type: Nurse Practitioner Type: Progress Notes Filed: 08/06/2023 10:44 Note Text: Telemedicine Visit - Distance Health Virtual Visit Note I have communicated my name and active licensure. The patient's identity and physical location were verified at the time of this visit. Either the patient or their legal inside sales account representative has been informed of the risks and benefits of -- and alternatives to -- treatment through a remote evaluation and consents to proceed with the evaluation remotely. Patient seen on virtual platforms, [employer]. Location of patient: [place] History of Presenting Illness: Vinny Downey 22 [...] - Sleep with head elevated due to oymx-gzowq-jnly increases cough - Continue Flonase - Flonase: [...] care - All questions answered Lang Carreon APRN.[facility]12-19-2023 NoteUT Electrophysiology Consult Note Reason for [...] recent labs Rajendra Sheffield MD Cardiac Electrophysiology [facility]12-19-2023 NotePatient here for follow up event monitor. Echo was not performed that was ordered at last apt in Feb 2023 by Israel Champion CNP. Does not notice palpitations as often. Denies chest pain, SOB, and lightheadedness. Review of Systems Cardiovascular: Positive for palpitations (less often). All other systems reviewed and are negative.[facility] 03-30-2023 Note-developed anemia s/p -hgb 10.8 per recent labsUnRiverside Methodist Hospital09-07-2023 Note- could be related to being , anemia -monitor and echo to rule out cardiac concernUnRiverside Methodist Hospital 03-30-2023 Note- takes sertraline 50 mg dailyUnRiverside Methodist Hospital 03-30-2023 Note- 30-day event monitor - we will hold off on starting medication until follow-upUnRiverside Methodist Hospital08-28-2023 NoteNew patient here to establish care. Ref from Dr. Foy for bradycardia. She is 8 weeks . Had ECG last week. Symptoms started after baby was born. She feels palpitations. Did lose a lot of blood with , requiring transfusion. Denies chest pain and SOB. Review of Systems Cardiovascular: Positive for palpitations. Neurological: Positive for headaches. All other systems reviewed and are negative.[facility] 03-20-2023 NoteUT Electrophysiology Consult Note [...] images are attached to (more content not included)...[facility] CenterEvaluation [facility]* Diagnosis Frequent UTI Urinary tract infection, site not specified documented in this encounter [employer]: evaluation note* Diagnosis Amenorrhea Absence of menstruation documented in this encounter [employer]: evaluation note* Diagnosis Elevated liver enzymes Nonspecific elevation of levels of transaminase or lactic acid dehydrogenase (LDH) Mixed hyperlipidemia documented in this encounter [employer] note* Diagnosis Well woman exam with routine gynecological exam Routine gynecological examination documented in this encounter [facility] [employer]Evaluation note* Diagnosis Missed menses 8 weeks gestation of , unspecified gestational age Encounter for supervision of normal first in first trimester History of miscarriage Personal history of other genital system and obstetric disorders documented in this encounter [facility] [employer] note* Diagnosis Second trimester state, incidental 12 weeks gestation of Subchorionic hematoma in first trimester, single or unspecified fetus Diabetes mellitus screening Screening for diabetes mellitus documented in this encounter [facility] [employer] note* Diagnosis Subchorionic hematoma, antepartum, first trimester, not applicable or unspecified fetus documented in this encounter [facility] [employer] note* Diagnosis Second trimester ([facility]) state, incidental 17 weeks gestation of ([facility]) Vaginal discharge Leukorrhea, not specified as infective STD exposure Screening, , for anatomic survey ([facility]) Encounter for anatomic survey Gastroesophageal reflux in ([facility]) Gestational diabetes mellitus (GDM), antepartum, gestational diabetes method of control unspecified([facility]) documented in this encounter [facility] [...] antepartum, gestational diabetes method of control unspecified([facility]) History of miscarriage Personal history [...] diabetes mellitus (GDM) during , antepartum ([facility]) Gestational diabetes mellitus (GDM), antepartum, gestational diabetes method of control unspecified([facility]) documented in this encounter [facility] HealthcareReason for visit Narrative* Imaging (Routine) - OpenSpecialty Diagnoses / ProceduresReferred By ContactReferred To ContactRadiology Diagnoses Subchorionic hematoma, antepartum, first trimester, not applicable or unspecified fetus Procedures US OB LESS THAN 14 WEEKS SINGLE OR FIRST GESTATION W DOPPLER US OB TRANSVAGINAL Mukul Foy MD [address] [place] [address] Phone: tel: Referral IDStatusMaureenStyumiko DateExpiration DateVisits RequestedVisits [id number]/ [facility] Diagnosis Screening for cervical cancer Screening for malignant neoplasm of the cervix Encounter for annual routine gynecological examination Diagnosis Encounter for screening for HIV Other fatigue Wellness examination Advance Directives TypeDate RecordedPatient RepresentativeExplanationAdvance Directives and Living WillPower of AttorneyTypeDate RecordedPatient RepresentativeExplanationACP- Advance DirectiveACP-Power of AttorneyTypeDate RecordedPatient Cash Application Representative ExplanationACP-Advance DirectiveACP-Power of Inside Meter Tester Summary Purpose Family History No Family History Records FoundNo Family History Records FoundNo Family History Records FoundNo Family History Records FoundNo Family History Records FoundNo Family History Records FoundNo Family History Records Found Reason for Referral StatusReasonSpecialtyDiagnoses / ProceduresReferred By ContactReferred To ContactClosedRadiology Diagnoses Frequent UTI Procedures US RENAL COMPLETE Lorena Ricks, [facility] [address] [place] [address] Additional Source Comments INFORMATION SOURCE (unrecogn ized section and content) DATE CREATED AUTHOR 10/14/2020 [facility] DATE CREATED AUTHOR AUTHOR'S ORGANIZ ATION 09/26/2021 [facility] DATE CREATED AUTHOR AUTHOR'S ORGANIZ ATION 12/30/2022 [facility] DATE CREATED AUTHOR AUTHOR'S ORGANIZ ATION 08/03/2023 [facility] DATE CREATED AUTHOR AUTHOR'S ORGANIZ ATION 08/07/2023 [facility] DATE CREATED AUTHOR AUTHOR'S ORGANIZ ATION 01/09/2025 [facility] DATE CREATED AUTHOR AUTHOR'S ORGANIZ ATION 05/16/2025 [facility] Reason for Visit (unrecogniz ed section and content) StatusReasonSpecialtyDiagnoses / ProceduresReferred By ContactReferred To ContactClosedRadiology Diagnoses Frequent UTI Procedures US RENAL COMPLETE Lorena Ricks, [facility] [address] [place] [address] ReasonCommentsGynecologic ExamReasonCommentsAmenorrheaReasonCommentsRoutine VisitReasonCommentsRoutine VisitSTI Screening Care Teams (unrecognized sec tion and content) Team MemberRelationshipSpecialtyStart DateEnd Date Ynes Rodriguez, [facility] [address] [place] [address] PCP - Generalmily Nurse Niamnjnanutu95/12/20Team MemberRelationshipSpecialty Start DateEnd Date Ynes Rodriguez, [facility] [address] [place] [address] PCP - GeneralFort Madison Community Hospitally Nurse Nrjxybvkyqrr91/12/20Team MemberRelationshipSpecialty Start DateEnd Date Ynes Rodriguez, [facility] [address] [facility] [place] [address] PCP - GeneralFort Madison Community Hospitally Nurse Practitioner08/02/22Team MemberRelationshipSpecialty Start DateEnd Date Ynes Rodriguez, [facility] [address] [place] [address] PCP - Generalmily Nurse Practitioner08/02/22Team MemberRelationshipSpecialty Start DateEnd Date Ynes Rodriguez, [facility] [address] [place] [address] PCP - GeneralFamily Nurse Practitioner08/02/22 FOR RECORDS [...] BE BASED ON THE PRIMARY CLINICAL RECORDS. [facility] [employer] [facility]. provides no warranty or guarantee of the accuracy or completeness of information in this document.
--- OUTSIDE RECORDS SUMMARY | 2025-05-28 20:30 | XMS_ITS | Clinical Summary ---
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 Name Role Phone Unavailable Primary Care Provider Unavailabl e Allergies No known active allergies Medications MedicationSigDispense QuantityRefillsLast FilledStart DateEnd DateStatus sertraline (Zoloft) 50 MG tablet Indications:Anxiety, generalizedTAKE 1 TABLET BY MOUTH EVERY DAY IN THE MORNING 30 tablet 304/5Active glucose blood test strip Indications:Gestational diabetes mellitus (GDM), antepartum, gestational diabetes method of control unspecified([facility])Use as instructed 100 each 1206//290181/6Active metFORMIN XR (Glucophage-XR) 500 MG 24 hr tablet Indications:Second trimester ([facility]),20 weeks gestation of ([facility])Take 2 tablets (1,000 mg) by mouth in the evening. Take with meals 60 tablet 507//016203/6Active pantoprazole (Protonix) 40 MG EC tablet Indications:23 weeks gestation of ([facility]),Elevated blood sugar level ,Gastroesophageal reflux disease without esophagitisTake 1 tablet (40 mg) by mouth in the morning. Take before meals. Do not crush, chew, or split. 30 tablet 1108//741320/6Active metoclopramide (Reglan) 10 MG tablet Indications:Gastroesophageal reflux disease without esophagitisTake 1 tablet (10 mg) by mouth in the morning and 1 tablet (10 mg) at noon and 1 tablet (10 mg) in the evening. Take before meals. Take 1 tablet by mouth 30 minutes prior to meals 3 times daily as needed for nausea. 90 tablet 5Active insulin pen needle 29G x 8mm [facility] Indications:Insulin controlled gestational diabetes mellitus (GDM) during , antepartum ([facility])Inject 1 each under the skin Daily 100 [...] Problems ProblemNoted DateDiagnosed Date23 weeks gestation of ([facility]) 02/26/2025Elevated blood sugar level02/26/2025bnormal glucose level01/13/2023 Rtjppwecy85/23/8050Vgmwkdatbxk57/23/2023Dyspareunia in idqkaz8611/30/2020Frequent UTI11/30/20208674Mmpbtkq44/07/2020Insomnia due to other mental lpknosvn95/10/2020 Other xizcwau8205/02/2020Estimated Date of PenleembUvflhexkQdd59/01/2025 Based on last menstrual period of 09/16/2024 Resolved Problems ProblemNoted DateDiagnosed DateResolved DateMissed wjrpej64/ Encounters DateTypeDepartmentCare KywgCbhgvxgvnrc12/05/2025 2:30 PM ESTRoutine [facility] [address] [facility] [phone] Regina Cummins PA Third trimester ([facility]); 36 weeks gestation of ([facility])05/28/2025 2:00 PM ESTAncillary Procedure [facility] [address] [facility] [place] [address] Insulin controlled gestational diabetes mellitus (GDM) during , antepartum ([facility])05/21/2025linisync Result Encounter [facility] External Department Unsolicited Britt Foy, DO 05/14/2025 2:50 PM EDTRoutine [facility] [address] [facility] [place] [address] Britt Foy, DO Third trimester ([facility]); 34 weeks gestation of ([facility]); Insulin controlled gestational diabetes mellitus (GDM) during , antepartum ([facility]); Gestational diabetes mellitus (GDM), antepartum, gestational diabetes method of control unspecified([facility])05/14/2025amboo flowsheet [facility] [address] [facility] [place] [address] Britt Foy, DO 05/02/2025bstract [facility] [address] [facility] [place] [address] Britt Foy, DO 04/30/2025 3:00 PM EDTRoutine [facility] [address] [facility] [place] [phone] Tiffany Li, ASHWIN Third trimester ([facility]); 32 weeks gestation of ([facility])04/30/2025linisync Result Encounter NOMS External Department Unsolicited Britt Foy, DO 04/30/2025amboo flowsheet [facility] [address] [facility] [place] [phone] Tiffany Li, ASHWIN 04/27/20257366Vfuxzl74/23/2025bstract [facility] [address] [facility] [place] [address] Britt Foy, DO 04/14/2025 3:20 PM EDTRoutine [facility] [address] [facility] [place] [address] Regina Cummins PA Third trimester ([facility]); 30 weeks gestation of ([facility])04/14/2025amboo flowsheet [facility] [address] [facility] [place] [address] Regina Cummins PA 04/14/20256881Orenur51/15/2025Telephone [facility] [address] [facility] [place] [address] Elizabeth Ware MA 04/05/2025linisync Result Encounter NOMS External Department Unsolicited Regina Cummins PA 04/05/2025linisync Result Encounter NOMS External Department Unsolicited Regina Cummins PA 04/03/2025 3:30 PM EDTRoutine [facility] [address] [facility] [place] [address] Regina Cummins PA 28 weeks gestation of ([facility]); Third trimester ([facility]); Dizziness; Gestational diabetes mellitus (GDM), antepartum, gestational diabetes method of control unspecified([facility]); History of miscarriage; Anemia, unspecified type; UTI fwfyoctx33/11/2025amboo flowsheet [facility] [address] [facility] [place] [address] Regina Cummins PA 04/02/2025Telephone [facility] [address] [facility] [place] [address] Suyapa Hazel LPN 04/01/20250100Vtwoce33/21/2025bstract [facility] [address] [facility] [place] [address] Britt Foy, 03/12/2025 3:50 PM EDTRoutine [facility] [address] [facility] [place] [phone] Britt Foy, 25 weeks gestation of ([facility]); Second trimester ([facility]); Gastroesophageal reflux disease without bdojnabzjxv19/20/2025amboo flowsheet [facility] [address] [facility] [place] [address] Britt Foy, DO 03/03/2025bstract [facility] [address] [facility] [place] [address] Britt Foy, 02/28/2025bstract [facility] OBCI[facility] [address] [facility] [place] [phone] Britt Foy, 02/26/2025 3:30 PM EDTRoutine [facility] [address] [facility] [place] [address] Britt Foy, 23 weeks gestation of ([facility]); Elevated blood sugar level; Gastroesophageal reflux disease without /06/2025amboo flowsheet [facility] OBCIARANN [address] [facility] [place] [address] Britt Foy, from Last 3 Months Family History RelationNameStatusCommentsDaughterAliveFatherAliveMotherAliveSisterAlive Social History Tobacco UseTypesPacks/DayYears UsedDateSmoking Tobacco: NeverSmokeless Tobacco: Never Tobacco Cessation:Counseling Given: Not Answered Alcohol UseStandard Drinks/WeekCommentsNever0 (1 standard drink = 0.6 oz pure alcohol)Estimated Date of ZoozgcfoJvhfegfaTra12/01/2025ased on last menstrual period of 09/16/2024Sex and Gender InformationValueDate RecordedSex Assigned at BirthNot on fileLegal WonUhddtd19/15/2023 11:47 PM EDTGender IdentityNot on fileSexual OrientationNot on file Last Filed Vital Signs Vital SignReadingTime TakenCommentsBlood Zhbmwpxx157/80107/28/2024 2:52 PM EST Pulse--Temperature--Respiratory Rate--Oxygen Saturation--Inhaled Oxygen Concentration--Qcivgl510 kg (237 lb 12.8 oz)05/28/2025 2:52 PM VMLIlknlj376.6 cm (5' 6 )01/30/2023 12:12 PM EDTBody Mass Index38.38001/30/2023 12:12 PM EDT Plan of Treatment DateTypeDepartmentCare Team (Latest Contact Info)Pdinnfrvihq86/10/2025 1:00 PM ESTRoutine [facility] [address] [place] [address] [place] [phone] Britt Foy, [address] [place], [place] [phone] 07/28/2025 4:00 PM ESTOffice Visit DIANE SANTO [address] [place] [address] [place] [address] Britt Foy, [address] [place], [place] [phone] Health MaintenanceDue DateLast DoneCommentsCOVID-19 Vaccine (2024- season) /02/2021, 12/07/2020Influenza Vaccine (#1)2025Pneumococcal Vaccine: Pediatrics (0 to 5 Years) and At-Risk Patients (6 to 64 Years)Aged Out No longer eligible based on patient's age to complete this topic Goals GoalPatient Goal TypeAssociated ProblemsRecent ProgressPatient-Stated?Author Reminders Care PlanOB RemindersNoOpen Scheduling, Background Procedures Procedure NamePriorityDate/TimeAssociated DiagnosisCommentsPOCT URINALYSIS IIGGBCCDCrnpgff25/05/2025 2:52 PM EST 36 weeks gestation of ([facility]) US OB BPP W NON-ZSRUJZ5505/21/2025 7:56 PM EDT POCT URINALYSIS GQDMABCHDoyvxlo45/22/2025 3:13 PM EDT 34 weeks gestation of ([facility]) US OB BPP W NON-XAXNNA1104/30/2025 10:59 PM EDT POCT URINALYSIS XNIIAKYVNgukmht18/08/2025 3:19 PM EDT 32 weeks gestation of ([facility]) POCT URINALYSIS DXGWFOIBFzfgmbz54/22/2025 3:54 PM EDT Third trimester ([facility]) US OB BCRWXP7204/05/2025 12:08 PM EDT ALL CBC WITH AUTO OPFSFatsrbe90/13/2025 10:33 AM EDT URINARY TRACT INFECTION (HTRX)Dohkluq9004/03/2025 3:53 PM EDT POCT URINALYSIS VHLVRJEPBqbijog62/11/2025 3:51 PM EDT 28 weeks gestation of ([facility]) Third trimester ([facility]) POCT URINALYSIS PMOJHYENLnhscds55/20/2025 4:14 PM EDT 25 weeks gestation of ([facility]) Second trimester ([facility]) POCT URINALYSIS KZXXRVVMDfipmni72/06/2025 4:03 PM EDT 23 weeks gestation of ([facility]) Elevated blood sugar level from Last 3 [...] Location / LateralityCollection Method / VolumeCollection TimeReceived UiouZjpyc23/05/2025 2:52 PM EST Narrative Authorizing ProviderResult TypeResult StatusRegina Cummins [facility] CARE TEST ENTER/EDIT ORDERABLESFinal Result * US OB BPP W NON-STRESS (05/21/2025 7:56 PM EDT) Only the most recent of2 resultswithin the time period is included. Anatomical RegionLateralityModalityOtherSpecimen (Source)Anatomical Location / LateralityCollection Method / VolumeCollection TimeReceived Time05/21/2025 7:56 PM EDT Narrative 05/21/2025 7:59 PM EDT [facility] ?[address] ? [place] [address] ? Ultrasound Report ? Signed ? Patient: VINNY HERRERA ?MR#: [id number] ?? : 2000 ?Acct:[id number] ?? Age/Sex: 24 / F ?ADM Date: 05/21/25 ?? Loc: US ? Attending Dr: Britt Foy D.O. ? Ordering Physician: Britt Foy D.O. ?? Date of Service: 05/21/25 ?? Procedure(s): US OB BPP w non-stress ?? Accession Number(s): [id number] ? cc: Britt Foy D.O.; Ynes Mistry NP ? [facility] ? [address] ? [place] [address] ? Patient Name: ?? VINNY HERRERA ? MRN: [facility]:[id number] ? date: 2000 ?Sex: F ?? Assigned Patient Location: FBC ?? Current Patient Location: ? Accession/Order Number: [id number] ?? Exam Date: 05/21/2025 ??16:12 ?Report Date: [...] Dictation Location: RADIO-PC-29 ? Electronically authenticated by: [id number] ??Y ?? Date: 05/21/2025 ??19:56 ? Dictated By: ?Chevy Moreland M.D. ? Signed By: ?05/21/251958 ? DD/ 55 ? TD/TT: ? Rod Buster Helper: Procedure Note Radiology, Radiologist, - 05/21/2025 [place] [id number] Ultrasound Report Signed Patient: VINNY HERRERA CMR#: [id number] : 2000Acct:[id number] Age/Sex: 24 / FADM Date: 05/21/25 Loc: US Attending Dr: Britt Foy D.O. Ordering Physician: Britt Foy D.O. Date of Service: 05/21/25 Procedure(s): US OB BPP w non-stress Accession Number(s): [id number] cc: Britt Foy D.O.; Ynes Mistry NP The [address] [address] Patient Name: VINNY HERRERA MRN: [id number] date: 2000 Sex: F Assigned Patient Location: [facility] Current Patient Location: Accession/Order Number: [id number] Exam Date: 05/21/2025 16:12 Report Date: 05/21/2025 19:56 At the request of: BRITT GALLO DO Procedure: US OB BPP w non-stress Ultrasound biophysical profile INDICATION: Gestational diabetes COMPARISON: 05/07/2025 FINDINGS/IMPRESSION:: Fetus cephalic position. 8/8 score biophysical profile. heart rate 139 beats per minutes. JAMAL 19.1 cm . Impression dictated by: Chevy Moreland M.D. 05/21/2025 7:56 PM Dictation Location: [facility]--29 Electronically authenticated by: [id number] Y Date: 9:56 Dictated By: Chevy Moreland M.D. Signed By:05/21/251958 DD/ 55 TD/TT: Rod Buster Helper: Authorizing ProviderResult TypeResult StatusCorevicki Foy DOCLINISYNC IMAGINGFinal Result * US OB GROWTH (04/05/2025 12:08 PM EDT)Anatomical RegionLateralityModalityOther Specimen (Source)Anatomical Location / LateralityCollection Method / Volume Collection TimeReceived Time04/05/2025 12:08 PM EDT Narrative 04/05/2025 12:11 PM EDT [facility] ?[address] ? [place] [address] ? Ultrasound Report ? Signed ? Patient: VINNY HERRERA ?MR#: [id number] ?? : 2000 ?Acct:[id number] ?? Age/Sex: 24 / F ?ADM Date: 04/05/25 ?? Loc: US ? Attending Dr: Regina Cummins ? Ordering Physician: Regina Cummins ?? Date of Service: 04/05/25 ?? Procedure(s): US OB growth ?? Accession Number(s): [id number] ? cc: Regina Cummins; Physician,Non-Staff M.D. ? [facility] ? [address] ? [place] [address] ? Patient Name: ?? IVNNY HERRERA ? MRN: [id number] ? date: 2000 ?Sex: F ?? Assigned Patient Location: US ?? Current Patient Location: LAB ?? Accession/Order Number: [id number] ?? Exam Date: 04/05/2025 ??10:00 ?Report Date: [...] Dictation Location: RADIO-PC-20 ? Electronically authenticated by: [id number] ??Y ?? Date: 04/05/2025 ??12:08 ? Dictated By: ?Daryn Peraza D.O. ? Signed By: ?04/05/25 1211 ? DD/ 1208 ? TD/TT: ? Rod Buster Helper: Procedure Note Radiology, Radiologist, - 04/05/2025 The [place] [id number] Ultrasound Report Signed Patient: VINNY HERRERA CMR#: [id number] : 2000Acct:[id number] Age/Sex: 24 FADM Date: 04/05/25 Loc: US Attending Dr: Regina Cummins Ordering Physician: Regina Cummins Date of Service: 04/05/25 Procedure(s): US OB growth Accession Number(s): [id number] cc: Regina Cummins; Physician,Non-Staff M.D. The [address] [address] Patient Name: VINNY HERRERA MRN: [id number] date: 2000 Sex: F Assigned Patient Location: US Current Patient Location: LAB Accession/Order Number: [id number] Exam Date: 04/05/2025 10:00 Report Date: 04/05/2025 [...] Peraza M.D. 04/05/2025 12:08 PM Dictation Location: [place] [address] Electronically authenticated by: [id number] Y Date: 2:08 Dictated By: Daryn Peraza D.O. Signed By:04/05/25 1211 DD/ 1208 TD/TT: Rod Buster Helper: Authorizing ProviderResult TypeResult StatusAmy [facility] IMAGINGFinal Result * (ABNORMAL) ALL CBC WITH AUTO DIFF (04/05/2025 10:33 AM EDT)ComponentValueRef RangeTest MethodAnalysis TimePerformed AtPathologist SignatureTBH WBC11.04.0 - 11.0 10 3/uLTBHTBH RBC3.47(L)4.20 - 5.40 10 6/uLTBHTBH HGB10.3(L)12.0 - 16.0 g/dLTBHTBH HCT30.7(L)36.0 - 48.0 %TBHTBH MCV88.581.0 - 99.0 fLTBHTBH MCH29.7 26.7 - 34.0 pgTBHTBH MCHC33.629.9 - 35.2 g/dLTBHTBH RDW12.811.0 - 15.0 %TBHTBH OAX293695 - 450 10 3/uLTBHTBH MPV8.7(L)9.5 - 13.5 [...] G PACLINISYNCFinal Result Performing OrganizationAddressCity/State/ZIP CodePhone Number [facility] * URINARY TRACT INFECTION (HTRX) (04/03/2025 3:53 PM EDT)ComponentValueRef Range Test MethodAnalysis TimePerformed AtPathologist SignatureACINETOBACTER DNSLGDUO590.961 - 24.689 ppm04/04/2025 7:51 AM EDTHealthTrackRx at [facility] ACINETOBACTER BAUMANIINot Oxwwzlpm68.961 - 24.689 ppm04/04/2025 7:51 AM EDT [facility] LabPortCITROBACTER CZLEDRHY595.000 - 32.015 ppm04/04/2025 7:51 AM EDTHealthTrackRx at LabPortCITROBACTER FREUNDIINot Zrxizyvw32.000 - 32.015 ppm04/04/2025 7:51 AM EDTHealthTrackRx at LabPortENTEROBACTER AEROGENES, WUCBWPC577.000 - 32.290 ppm04/04/2025 7:51 AM EDTHealthTrackRx at LabPortENTEROBACTER AEROGENES, CLOACAENot Lzxcuksb88.000 - 32.290 ppm 04/04/2025 7:51 AM EDTHealthTrackRx at LabPortENTEROCOCCUS FAECALIS, FAECIUM0 26.000 - 33.043 ppm04/04/2025 7:51 AM EDTHealthTrackRx at LabPortENTEROCOCCUS FAECALIS, FAECIUMNot Psdbethy94.000 - 33.043 ppm04/04/2025 7:51 AM EDT [facility] at LabPortESCHERICHIA UIIM499.000 - 28.500 ppm04/04/2025 7:51 AM EDTHealthTrackRx at LabPortESCHERICHIA COLINot Jnxneiam37.000 - 28.500 ppm 04/04/2025 7:51 AM EDTHealthTrackRx at LabPortKLEBSIELLA PNEUMONIAE, OXYTOCA0 23.000 - 31.865 ppm04/04/2025 7:51 AM EDTHealthTrackRx at LabPortKLEBSIELLA PNEUMONIAE, OXYTOCANot Enoksapr33.000 - 31.865 ppm04/04/2025 7:51 AM EDT [facility] at LabPortMORGANELLA ZVDHCDEZ268.961 - 24.689 ppm04/04/2025 7:51 AM EDTHealthTrackRx at LabPortMORGANELLA MORGANIINot Hbxcmxim84.961 - 24.689 ppm04/04/2025 7:51 AM EDTHealthTrackRx at LabPortPROTEUS MIRABILIS, VULGARIS0 23.000 - 28.500 ppm04/04/2025 7:51 AM EDTHealthTrackRx at LabPortPROTEUS MIRABILIS, VULGARISNot Lzybabkn63.000 - 28.500 ppm04/04/2025 7:51 AM EDT [facility] at LabPortPSEUDOMONAS TTGYIYHKUO822.000 - 31.801 ppm04/04/2025 7:51 AM EDTHealthTrackRx at LabPortPSEUDOMONAS AERUGINOSANot Lihadfmw19.000 - 31.801 ppm04/04/2025 7:51 AM EDTHealthTrackRx at LabPortSTAPHYLOCOCCUS AUREUS0 26.000 - 31.595 ppm04/04/2025 7:51 AM EDTHealthTrackRx at [facility] STAPHYLOCOCCUS AUREUSNot Vnfyfqts32.000 - 31.595 ppm04/04/2025 7:51 AM EDT [facility] at LabPortSTREPTOCOCCUS AGALACTIAE (GROUP B STREP)026.000 - 32.435 ppm04/04/2025 7:51 AM EDTHealthTrackRx at LabPortSTREPTOCOCCUS AGALACTIAE (GROUP B STREP)Not Heyzvuae11.000 - 32.435 ppm04/04/2025 7:51 AM EDTHealthTrackRx at LabPortCANDIDA ALBICANS, PARAPSILOSIS, OHYKOQGSKU814.000 - 30.347 ppm04/04/2025 7:51 AM EDTHealthTrackRx at LabPortCANDIDA ALBICANS, PARAPSILOSIS, TROPICALISNot Yrvqckee74.000 - 30.347 ppm04/04/2025 7:51 AM EDT [facility] LabPortCANDIDA FXXWIVFW487.000 - 31.618 ppm04/04/2025 7:51 AM EDTHealthTrackRx at LabPortCANDIDA GLABRATANot Elxnikel04.000 - 31.618 ppm 04/04/2025 7:51 AM EDTHealthTrackRx at LabPortCANDIDA IKCXGJ365.000 - 30.873 ppm04/04/2025 7:51 AM EDTHealthTrackRx at LabPortCANDIDA KRUSEINot Detected 23.000 - 30.873 ppm04/04/2025 7:51 AM EDTHealthTrackRx at LabPortSERRATIA BGJKOQOABX489.000 - 31.581 ppm04/04/2025 7:51 AM EDTHealth[facility] at [facility] SERRATIA MARCESCENSNot Zhojgkvs37.000 - 31.581 ppm04/04/2025 7:51 AM EDT [facility] at LabPortSTREPTOCOCCUS PYOGENES (GROUP A STREP)019.961 - 24.689 ppm04/04/2025 7:51 AM EDTHealthTrackRx at LabPortSTREPTOCOCCUS PYOGENES (GROUP A STREP)Not Koanbkzs38.961 - 24.689 ppm04/04/2025 7:51 AM EDTHealthTrackRx at LabPortSTAPHYLOCOCCUS EPIDERMIDIS, HAEMOLYTICUS, LUGDUNENSIS, SAPROPHYTICUS (DYLHX384.961 - 24.689 ppm04/04/2025 7:51 AM EDTHealth[facility] STAPHYLOCOCCUS EPIDERMIDIS, HAEMOLYTICUS, LUGDUNENSIS, SAPROPHYTICUS (URINANot Mwqswien46.961 - 24.689 ppm04/04/2025 7:51 AM EDTHealth[facility]Rx at [facility] STAPHYLOCOCCUS EPIDERMIDIS, HAEMOLYTICUS, LUGDUNENSIS, SAPROPHYTICUS (URINA0 19.961 - 24.689 ppm04/04/2025 7:51 AM EDTHealth[facility] at [facility] STAPHYLOCOCCUS EPIDERMIDIS, HAEMOLYTICUS, LUGDUNENSIS, SAPROPHYTICUS (URINANot Aoeztlea33.961 - 24.689 ppm04/04/2025 7:51 AM EDTHealth[facility] at [facility] Specimen (Source)Anatomical Location / LateralityCollection Method / Volume Collection TimeReceived GmzaVnynj82/11/2025 3:53 PM EDT04/04/2025 1:35 AM EDT Narrative Authorizing ProviderResult TypeResult StatusAmy Rush PAL BLOOD ORDERABLES Final ResultPerforming OrganizationAddressCity/State/ZIP CodePhone Number [facility] [address] [address] from Last 3 Months Additional Health Concerns Active ProblemsNoted DateDiagnosed DateOB Mdhhtsdwd17/09/2025 Insurance
--- OUTSIDE RECORDS SUMMARY | 2025-05-28 20:30 | XMS_ITS | Encounter Summary ---
Author Organization [facility] Address [address], [address] [place] [address] Care Team Providers Care Cycle Specialist Name Role Phone Ynes Mistry JEWELRY MODEL MAKER - DEBUG TECHNICIAN Primary Care Provide r Encounter Details DateTypeDepartmentCare Team (Latest Contact Info)Xuevtchxsca91/30/2025Orders Only [facility] [address] [place] [address] [address] [place] [address] Ynes Mistry, JEWELRY MODEL MAKER - DEBUG TECHNICIAN [address] [place] [place] [phone] Social History Tobacco UseTypesPacks/DayYears UsedDateSmoking Tobacco: NeverSmokeless Tobacco: NeverAlcohol UseStandard Drinks/WeekCommentsNot Currently0 (1 standard drink = 0.6 oz pure alcohol)socialASHTABUL[facility] UtilitiesAnswerDate RecordedIn the past 12 months has the electric, gas, oil, or water company threatened to shut off services in your home?No10/07/2024Overall Financial Resource Strain (CARDIA)AnswerDate RecordedHow hard is it for you to pay for the very basics like food, housing, medical care, and heating?Not hard at all07/13/2023HQ-2AnswerDate RecordedPHQ-9 Total Hylsz490Hunger Vital SignAnswerDate RecordedWithin the past 12 months, [...] steady place to sleep or slept in pe[place]ter (including now)?No07/13/2023Housing Stability Vital SignAnswerDate RecordedIn the [...] more.CommentsNoSex and Gender InformationValueDate RecordedSex Assigned at XzkyiQqjtpn39/28/2024 8:24 PM EDTLegal JwuMsmppd98/10/2013 3:31 PM ESTGender IbdniftrHicivp70/28/2024 8:24 PM EDTSexual OrientationNot on filedocumented as of this encounter Plan of Treatment Not on file documented as of this encounter Procedures Procedure NamePriorityDate/TimeAssociated DiagnosisCommentsBIOPHYSICAL PROFILE Vtgzrot7605/21/2025documented in this encounter Results * Biophysical profile (05/21/2025) Narrative Authorizing ProviderResult TypeResult StatusHistorical Provider MDOB GYNE ORDERABLESFinal Result documented in this encounter Visit Diagnoses Not on filedocumented in this encounter Care Teams Team MemberRelationshipSpecialtyStart DateEnd Date Ynes Mistry, JEWELRY MODEL MAKER - DEBUG TECHNICIAN [address] [place] [address] [place] [address] PCP - GeneralFamily Nurse Practitioner08/02/22documented as of this encounter
--- OUTSIDE RECORDS SUMMARY | 2025-05-28 20:30 | XMS_ITS | Clinical Summary ---
Author Organization [facility] Address [address], [address] [place] [address] Care Team Providers Care Evp Managing Director Name Role Phone Ynes Mistry SCIENCE LIAISON - POLICE SUPERINTENDENT Primary Care Provide r Allergies No known [...] [address] 200 mg vaginally xmrramk53/26/2025Active sertraline (ZOLOFT) 25 MG tablet TAKE 1 TABLET BY MOUTH EVERY DAY 30 tablet 5Active sertraline (ZOLOFT) 25 MG tablet Take 1 tablet by mouth daily 30 tablet Discontinued Active Problems ProblemNoted DateDiagnosed DateGastroesophageal reflux qobsfuq1411/12/2024Other hyperlipidemia [E78.49]06/04/20241635Myisdun13/12/2024Hepatic pveprbvoq26/14/2024 Elevated liver znxjlvy5103/01/2024Mixed aztshmzuyyvrqt39/30/2024Iron deficiency xchlxg7710/25/2023Gestational diabetes mellitus (GDM) affecting second 07/24/20229352Ocdehvx88/07/2020Seasonal allergic vgaibwtb95/07/2020Other fatigue 05/02/2020 Resolved Problems ProblemNoted DateDiagnosed DateResolved DateSore gjnfhg33503/ne /Irregular pemvqt08/Frequent UTI11/30/2020 02/20/2024yspareunia in oaftbd60/Insomnia due to other mental daruuzdn11 Encounters DateTypeDepartmentCare PdwcRhykhqvmdkn63/05/2025Refill [address] [place] [address] Ynes Mistry, SCIENCE LIAISON - POLICE SUPERINTENDENT Medication Aprqyr0405/22/2025Orders Only [address] [facility], [place] [address] Ynes Mistry, SCIENCE LIAISON - POLICE SUPERINTENDENT 05/13/2025Orders Only [address] [place] [address] ProviderYuval MD 05/01/2025Orders Only [address] [facility] [place] [address] Provider, MD Yuval from Last 3 Months Immunizations ImmunizationAdministration DatesNext DueCOVID-19, Inactive, PFIZER PURPLE top, DILUTE for use, (age 12 y+)12/29/2020,1826DPqS28/29/2004,03/13/2000, 03/12/1999,01/18/1999,1998DTaP, INFANRIX, (age 6w-6y), IM, 0.5mL11/20/2003 ,03/13/2000,03/12/1999,01/18/1999,1998HPV [...] (1 standard drink = 0.6 oz pure alcohol)[facility] UtilitiesAnswerDate RecordedIn the past 12 months has the [place], gas, oil, or water [employer] threatened to shut off services in your home?No10/07/2024Overall Financial Resource Strain (CARDIA)AnswerDate Recorded How hard is it for you to pay for the very basics like food, housing, medical care, and heating?Not hard at all07/13/2023HQ-2AnswerDate RecordedPHQ-9 Total Eedwf611Hunger Vital SignAnswerDate RecordedWithin the past 12 months, [...] were you homeless or living in a fpc (including now)?No10/07/2024Food InsecurityAnswerDate RecordedWithin the past 12 months, you worried that your food would run out before you got the money to buymore.Within the past 12 months, the food you bought just didn't last and you didn't have money to get more.CommentsNoSex and Gender InformationValueDate RecordedSex Assigned at AjqckIkgzcy92/28/2024 8:24 PM EDTLegal QqzUuhsih14/10/2013 3:31 PM ESTGender RdfgyybfNifqkf25/28/2024 8:24 PM EDTSexual OrientationNot on file Last Filed Vital Signs Vital SignReadingTime TakenCommentsBlood Ydjnweny469/7204 11:39 AM EDT Rcbbz4204 11:39 AM WMZFikxpouasom78.1 ??C (96.9 ??F)11/12/2024 11:39 AM EDTRespiratory Cgsk165110/07/2024 1:43 PM EDTOxygen Ipzynxjfxf26%11/12/2024 11:39 AM EDTInhaled Oxygen Concentration--Cesrcf03.1 kg (203 lb)11/12/2024 11:39 AM QCMOwnaud630.1 cm (5' 5 )10/07/2024 1:43 PM EDTBody Mass Index33.78010/07/2024 1:43 PM EDT Plan of Treatment Health MaintenanceDue DateLast DoneCommentsDTaP/Tdap/Td vaccine (7 - Td or Tdap) /, 11/20/2003, 11/20/2003, Additional history existsFlu vaccine (#1)5COVID-19 Vaccine (3 - season)/02/2021, 12/07/2020epression Jhzhgy51601/, 08/07/2024Pap smear07/15/2027 07/15/2024, 07/15/2023, 07/05/2023, Additional history existsHepatitis B vaccine Axxyibbxb93/17/1999, 1998, 1998Hib udcrxgjKrkchxqxl48/21/2000, 03/12/1999, 01/18/1999, Additional history existsPolio vaccineCompleted 11/20/2003, 03/13/2000, 01/18/1999, Additional history existsVaricella vaccine Afvrzxzlg87/20/2011, 12/22/1999Hepatitis A mfnhnsyEyamccnsj33/27/2012, 08/19/2011, 02/09/2011, Additional history existsMeningococcal (ACWY) vaccine Ckomkqpgt55/19/2016, 2014, 01/12/2011HPV skhzkfyTbtvyqnbg91/28/2018, 05/01/2017, 02/24/2017HIV vhtymdLulfhcdry37/12/2020Chlamydia/GC screen Ckglrnhbojgo28/29/2021, 03/03/2020, 02/21/2019, Additional history exists Hepatitis C mkdtfiSetijquib75/27/2024Depression MonitoringDiscontinued 08/07/2024, 08/07/20245757SkwrauSbhwrvtbqvct30/27/2025, 05/20/2024, 02/16/2024, Additional history existsMeningococcal B vaccineAged OutNo longer eligible based on patient's age to complete this topicPneumococcal 0-49 years VaccineAged Out No longer eligible based on patient's age to complete this topic Procedures Procedure NamePriorityDate/TimeAssociated DiagnosisCommentsBIOPHYSICAL PROFILE Iswxcov68/29/2025CHG BIOPHYSICAL PROFILE NON-STRESS TESTINGRoutine 05/07/2025 3:54 PM EDTBIOPHYSICAL PROFILE W/QGNQwazcan83/08/2025 11:39 AM EDTHM PAP ZCTFMWastsqq14/23/2024 LIPID ILJJNZorobbk37/28/2024 9:59 AM EDT Mixed hyperlipidemia HEPATITIS C NPHUCXJZPhfdifk12/27/2024 8:25 AM EDT Need for hepatitis C screening test Wellness examination C.TRACHOMATIS N.GONORRHOEAE DNA, PKWKWZmmpohj69/29/2021 1:57 PM EDT Frequent UTI HIV OGZGCFKwcgtkr33/12/2020 3:27 PM EDT Encounter for screening for [...] RangeTest MethodAnalysis TimePerformed AtPathologist SignatureHepatitis C AbNONREACTIVE YXVPCLPUPNP98/27/2024 8:25 AM EDTMERCY LABORATORIESComment: ? The hepatitis [...] / Volume Collection TimeReceived TimeBloodBLOOD SPECIMEN / Shhaohn3310/18/2023 8:25 AM EDT 10/18/2023 8:26 AM EDT Narrative Authorizing ProviderResult TypeResult StatusYnes Dalila Fede SCIENCE LIAISON - CNPIMMUNOLOGY ORDERABLESFinal ResultPerforming OrganizationAddressCity/State/ZIP CodePhone Number [facility] [address] [place] [address], [facility] [phone] [place] [address] [place] [address], [facility] [phone] * C.trachomatis N.gonorrhoeae DNA, Urine (11/19/2020 1:57 PM EDT)ComponentValue Ref RangeTest MethodAnalysis TimePerformed AtPathologist SignatureSpecimen Description.URINE11/19/2020 1:57 PM EDTMERCY LABORATORIESC. trachomatis DNA ,ZaeseUHGNYVKPRSQAJPNP64/29/2021 1:57 PM EDTMERCY LABORATORIESComment: CHLAMYDIA TRACHOMATIS DNA [...] alternative nucleic acid target. N. gonorrhoeae DNA, HdgllGFUAXJRYNLBTHBIM16/29/2021 1:57 PM EDTMERCY LABORATORIESComment: NEISSERIA GONORRHOEAE DNA [...] / LateralityCollection Method / Volume Collection TimeReceived IgkdOujmb63/29/2021 1:57 PM EDT11/19/2020 1:57 PM EDT Narrative Authorizing ProviderResult TypeResult StatusLorena Ricks SCIENCE LIAISON - POLICE SUPERINTENDENT MICROBIOLOGY - GENERAL ORDERABLESFinal ResultPerforming OrganizationAddress City/State/ZIP CodePhone Number [place] [phone] [id number] [place] [address] * HIV Screen (05/04/2020 3:27 PM EDT)ComponentValueRef RangeTest MethodAnalysis TimePerformed AtPathologist SignatureHIV Ag/GdFWDKZMSVCXONFFYIECDWYN02/12/2020 3:27 PM EDTMERCY LABORATORIESComment: No laboratory evidence of HIV infection. ??If acute HIV infection is suspected, consider testing for HIV-1 RNA. Specimen (Source)Anatomical Location / LateralityCollection Method / Volume Collection TimeReceived TimeBLOOD SPECIMEN / Gigtpwm8905/04/2020 3:27 PM EDT 05/04/2020 3:28 PM EDT Narrative Authorizing ProviderResult TypeResult StatusYnes Mistry APRN - CNPIMMUNOLOGY ORDERABLESFinal ResultPerforming OrganizationAddressCity/State/ZIP CodePhone Number [address] [phone] [phone] from Last 3 Months or Most Recently Relevant to Health Maintenance Insurance Care Teams Team MemberRelationshipSpecialtyStart DateEnd Date Ynes Mistry APRN - POLICE SUPERINTENDENT [address] [place] [phone] PCP - GeneralFamily Nurse Practitioner08/02/22
--- OUTSIDE RECORDS SUMMARY | 2025-05-28 20:30 | XMS_ITS | Encounter Summary ---
Author Organization [facility] Address [address] [place] [address] Care Team Providers Care Rn First Assistant Name Role Phone Unavailable Primary Care Provider Unavailabl e Encounter Details DateTypeDepartmentCare Team (Latest Contact Info)Vaaepwrzwui67/22/2025amboo flowsheet [facility] [address] [place] [address] Mukul Foy DO [address] [place] [address] Dr Melissa [place], [facility] Social History Tobacco UseTypesPacks/DayYears UsedDateSmoking Tobacco: NeverSmokeless Tobacco: NeverAlcohol UseStandard Drinks/WeekCommentsNever0 (1 standard drink = 0.6 oz pure alcohol)Estimated Date of BvsgbjsjVcdciwfvEnx10/01/2025Based on last menstrual period of 09/16/2024Sex and Gender InformationValueDate Recorded Sex Assigned at BirthNot on fileLegal JkkYgjrkk01/15/2023 11:47 PM EDTGender IdentityNot on fileSexual OrientationNot on filedocumented as of this encounter Plan of Treatment DateTypeDepartmentCare Team (Latest Contact Info)Cnhgkthnqsr14/10/2025 1:00 PM ESTRoutine [facility] SANTO [address] [place] [address] Mukul Foy DO [address] [place], [place] [id number] 07/28/2025 4:00 PM ESTOffice Visit [facility] SANTO [address] [place] [address] Mukul Foy DO [address] [facility] [place] [address] documented as of this encounter Goals GoalPatient Goal TypeAssociated ProblemsRecent ProgressPatient-Stated?Author Reminders Care PlanOB RemindersNoOpen Scheduling, Backgrounddocumented as of this encounter Visit Diagnoses Not on filedocumented in this encounter Additional Health Concerns Active ProblemsNoted DateDiagnosed DateOB Wwutergjh56/09/2025 documented as of this encounter
--- OUTSIDE RECORDS SUMMARY | 2025-05-28 20:30 | XMS_ITS | Clinical Summary ---
Author Organization [facility] Address [address] [place] [address] Care Team Providers Care Waxing Machine Operator Name Role Phone Ynes Mistry STEWARDESSES TEACHER Primary Care Provider [phone] Allergies No known active allergies Medications MedicationSigDispense [...] anemia s/p -hgb 10.8 per recent labs Yhzgjzutgqqn20/28/2023 Assessment & Plan (03/30/2023 1:01 PM EDT): - 30-day event monitor - we will hold off on starting medication until follow-up Abnormal glucose levelHeartburn Ajcyqhephlq36yspareunia in lrkcgp04Frequent UTInxiety Assessment & Plan (03/30/2023 1:01 PM EDT): - takes sertraline 50 mg daily Seasonal allergic usnxdobf83Insomnia due to other mental gbphxuhd54Other Assessment & Plan (03/30/2023 1:02 PM EDT): - could be related to being , anemia -monitor and echo to rule out cardiac concern Encounters DateTypeDepartmentCare OaxkTshuhdujbsn27/05/2025Telephone [facility] [address] [place] [address] Cailin Ryan MA from Last 3 Months Family History Medical HistoryRelationNameCommentsHyperlipidemiaFatherSupraventricular tachycardiaFatherAnemiaMotherDiabetesSisterRelationNameStatusCommentsFather MotherSister Social History Tobacco UseTypesPacks/DayYears UsedDateSmoking Tobacco: NeverSmokeless Tobacco: Never Tobacco Cessation:Counseling Given: Not Answered Alcohol UseStandard Drinks/WeekCommentsNot Currently0 (1 standard drink = 0.6 oz pure alcohol)[place] Safety & EnvironmentAnswerDate RecordedFear of Current or Ex-PartnerNot on file09/15/2023Emotionally AbusedNot on file09/15/2023hysically AbusedNot on file09/15/2023Sexually AbusedNot on file09/15/2023hysically or Sexually AbusedNot on file09/15/2023CommentsUnknownSex and Gender InformationValueDate RecordedSex Assigned at BirthNot on fileLegal SexFemale 03/17/2023 11:34 AM EDTGender IdentityNot on fileSexual OrientationNot on file Last Filed Vital Signs Vital SignReadingTime TakenCommentsBlood Zmumtujb690/7607/11/2023 4:27 PM EST Vfstd665207/11/2023 4:27 PM ESTTemperature--Respiratory Rate--Oxygen Xizlfrnoaw81% 07/11/2023 4:27 PM ESTInhaled Oxygen Concentration--Kubdoh10.7 kg (211 lb) 07/11/2023 4:27 PM GQQFkhoqz401.6 cm (5' 6 )07/11/2023 4:27 PM ESTBody Mass Index34.0607/11/2023 4:27 PM EST Plan of Treatment Health MaintenanceDue DateLast DoneCommentsDepression Srhsinmrl44/17/2011dult Wxkbzhb42/COVID-19 Vaccine (3 - 2024- season)2025 12/29/2020, 12/07/2020Influenza Vaccine (#1)2025Pap Smear04/18/2025 04/18/2022Zoster Vaccines (1 of 2)9002/09/2011, 12/22/1999HIB Vaccines Lsvzylkpp81/21/2000, 03/12/1999, 01/18/1999, Additional history existsIPV BuuytcmqComalqqtf79/29/2004, 03/13/2000, 01/18/1999, Additional history exists Varicella TbkmuzoaEzzdbaykh22/20/2011, 12/22/1999Meningococcal VaccineCompleted 03/11/2016, 2014, 01/12/2011HPV ChfnjvvqIiczeqfhy33/28/2018, 05/01/2017, 02/24/2017Meningococcal B VaccineAged OutNo longer eligible based on patient's age to complete this topicPneumococcal Vaccine: Pediatrics (0 to 5 Years) and At-Risk Patients (6 to 64 Years)Aged OutNo longer eligible based on patient's age to complete this topicRotavirus VaccinesAged OutNo longer eligible based on patient's age to complete this topic Insurance Care Teams Team MemberRelationshipSpecialtyStart DateEnd Date Ynes Mistry, STEWARDESSES TEACHER [address] [place] [address] [facility] [address] [place] [address] [facility]03/20/23
== END 2025-05-28 20:27 | disposition home or self-care (01) ==
LOC: LAB 20:26
PROVIDERS: PCP Nurse Practitioner Women's Health; Visit Provider Physician Assistant
DX: Z34.93 Encounter for supervision of normal pregnancy, unspecified, third trimester (principal)
CPT/HCPCS: 87081

== ENCOUNTER 2025-05-31 09:05 | Outpatient (OUT) | payer OTHER, SELFPAY ==
--- OUTSIDE RECORDS SUMMARY | 2025-04-30 14:00 | XMS_ITS | Encounter Summary ---
Author Organization [facility] Address [address] [place] [address] Care Team Providers Care Software Release Manager Name Role Phone Unavailable Primary Care Provider Unavailabl e Reason for Visit * ReasonCommentsRoutine Visit Encounter Details DateTypeDepartmentCare Team (Latest Contact Info)Tywihzdvyel63/08/2025 3:00 PM EDTRoutine [facility] [address] [place] [address] Tiffany Li, ASHWIN [address] [facility] [place] [address] Third trimester ([facility]); 32 weeks gestation of ([facility]) Social History Tobacco UseTypesPacks/DayYears UsedDateSmoking Tobacco: NeverSmokeless Tobacco: NeverAlcohol UseStandard Drinks/WeekCommentsNever0 (1 standard drink = 0.6 oz pure alcohol)Estimated Date of YbdexdlnXasgdfqmMvq65/01/2025Based on last menstrual period of 09/16/2024Sex and Gender InformationValueDate Recorded Sex Assigned at BirthNot on fileLegal YmlBzfeez40/15/2023 11:47 PM EDTGender IdentityNot on fileSexual OrientationNot on filedocumented as of this encounter Last Filed Vital Signs Vital SignReadingTime TakenCommentsBlood Nrlbqvua310/7010 3:11 PM EDT Pulse--Temperature--Respiratory Rate--Oxygen Saturation--Inhaled Oxygen Concentration--Uflaxa333 kg (227 lb 6.4 oz)04/30/2025 3:11 PM [...] Frequent UTI 11/30/2020 23 weeks gestation of ([facility]) 02/26/2025 Elevated blood sugar level 02/26/2025 Resolved Ambulatory Problems Diagnosis Date Noted Missed period 01/13/2023 Past Medical History: Diagnosis Date GDM (gestational diabetes mellitus) ([facility]) HISTORY PAST MEDICAL HISTORY SOCIAL HISTORY Past Medical History: Diagnosis Date GDM (gestational diabetes mellitus) ([facility]) Social History Tobacco Use Smoking status: Never [...] nursing note reviewed. Exam conducted with a impact retail service merchandiser present. Vitals: Estimated body mass index is 36.7 kg/m?? as calculated from the following: Height as of 01/30/23: 5' 6 . Weight as of this encounter: 227 lb 6.4 oz. BP: 110/70 Patient's last menstrual period was 09/16/2024. ASSESSMENT & PLAN ICD-10-CM 1. Third trimester ([facility]) Z34.93 2. 32 weeks gestation of ([facility]) Z3A.32 POCT urinalysis dipstick manually resulted Return [...] Plan of Treatment DateTypeDepartmentCare Team (Latest Contact Info)Fcnqlksxeef50/10/2025 1:00 PM ESTRoutine [facility] [place] [facility] [address] [place] [phone] Mukul Foy, DO [address] [facility] [address] [place], [place] [phone] 07/28/2025 4:00 PM ESTOffice Visit [facility] [address] [place] [address] Mukul Foy, DO [address] [facility] [place] [address] documented as of this encounter Goals GoalPatient Goal TypeAssociated ProblemsRecent ProgressPatient-Stated?Author Reminders Care PlanOB RemindersNoOpen Scheduling, Backgrounddocumented as of this encounter Procedures Procedure NamePriorityDate/TimeAssociated DiagnosisCommentsPOCT URINALYSIS NMHFZBMGNydvkdx10/08/2025 3:19 PM EDT 32 weeks gestation of ([facility]) documented in this encounter Results * (ABNORMAL) [...] / LateralityCollection Method / VolumeCollection Time Received DgtrOofnj97/08/2025 3:19 PM EDT Narrative Authorizing ProviderResult TypeResult StatusTiffany Li NPPOINT OF CARE TEST ENTER/EDIT ORDERABLESFinal Result documented in this encounter Visit Diagnoses Diagnosis Third trimester ([facility]) state, incidental 32 weeks gestation of ([facility]) documented in this encounter Additional Health Concerns Active ProblemsNoted DateDiagnosed DateOB Ltvcjpmwt85/09/2025 documented as of this encounter
--- OUTSIDE RECORDS SUMMARY | 2025-05-14 13:50 | XMS_ITS | Encounter Summary ---
Author Organization [facility] Address [address] [place] [address] Care Team Providers Care Medical Record Transcriber Name Role Phone Unavailable Primary Care Provider Unavailabl e Reason for Visit * ReasonCommentsRoutine Visit Encounter Details DateTypeDepartmentCare Team (Latest Contact Info)Peefimkvlci77/22/2025 2:50 PM EDTRoutine [facility] [address] [place] [address] Mukul Foy DO [address] [place], [place] [phone] Third trimester ([facility]); 34 weeks gestation of ([facility]); Insulin controlled gestational diabetes mellitus (GDM) during , antepartum ([facility]); Gestational diabetes mellitus (GDM), antepartum, gestational diabetes method of control unspecified([facility]) Social History Tobacco UseTypesPacks/DayYears UsedDateSmoking Tobacco: NeverSmokeless Tobacco: NeverAlcohol UseStandard Drinks/WeekCommentsNever0 (1 standard drink = 0.6 oz pure alcohol)Estimated Date of ZzugamqvPxwvysvdWfk34/01/2025Based on last menstrual period of 09/16/2024Sex and Gender InformationValueDate Recorded Sex Assigned at BirthNot on fileLegal VvjFisevu23/15/2023 11:47 PM EDTGender IdentityNot on fileSexual OrientationNot on filedocumented as of this encounter Last Filed Vital Signs Vital SignReadingTime TakenCommentsBlood Mnpgcrab239/7010 3:05 PM EDT Pulse--Temperature--Respiratory Rate--Oxygen Saturation--Inhaled Oxygen Concentration--Grdgzk780 kg (232 lb 1.9 oz)05/14/2025 3:05 PM [...] 11/30/2020 23 weeks gestation of ([facility]) 02/26/2025 Elevated blood sugar level 02/26/2025 Resolved Ambulatory Problems Diagnosis Date Noted Missed period 01/13/2023 Past Medical History: Diagnosis Date GDM (gestational diabetes mellitus) ([facility]) HISTORY PAST MEDICAL HISTORY SOCIAL HISTORY Past Medical History: Diagnosis Date GDM (gestational diabetes mellitus) ([facility]) Social History Tobacco Use Smoking status: [...] nursing note reviewed. Exam conducted with a medicaid specialist present. Vitals: Estimated body mass index is 37.47 kg/m?? as calculated from the following: Height as of 01/30/23: 5' 6 . Weight as of this encounter: 232 lb 1.9 oz. BP: 110/70 Patient's last menstrual period was 09/16/2024. Assessment/Plan ICD-10-CM 1. Third trimester ([facility]) Z34.93 2. 34 weeks gestation of ([facility]) Z3A.34 POCT urinalysis dipstick manually resulted [...] Plan of Treatment DateTypeDepartmentCare Team (Latest Contact Info)Mruremwfnxb13/10/2025 1:00 PM ESTRoutine [facility] [address] [place] [phone] Mukul Foy, DO [address] [place], [place] [phone] 07/28/2025 4:00 PM ESTOffice Visit [facility] [address] [place] [address] Mukul Foy, DO [address] [place], [place] [phone] documented as of this encounter Goals GoalPatient Goal TypeAssociated ProblemsRecent ProgressPatient-Stated?Author Reminders Care PlanOB RemindersNoOpen Scheduling, Backgrounddocumented as of this encounter Procedures Procedure NamePriorityDate/TimeAssociated DiagnosisCommentsPOCT URINALYSIS YJLJASHVNclcczw77/22/2025 3:13 PM EDT 34 weeks gestation of ([facility]) documented in this encounter Results * US [...] 3:13 PM EDT Narrative Authorizing ProviderResult TypeResult StatusMukul Foy DOPOINT OF CARE TEST ENTER/EDIT ORDERABLESFinal [...] Additional Health Concerns Active ProblemsNoted DateDiagnosed DateOB Thhfgxxpv93/09/2025 documented as of this encounter
--- OUTSIDE RECORDS SUMMARY | 2025-05-28 14:00 | XMS_ITS | Encounter Summary ---
Author Organization [facility] Address [address] [place] [address] Care Team Providers Care Communications Executive Name Role Phone Unavailable Primary Care Provider Unavailabl e Encounter Details DateTypeDepartmentCare Team (Latest Contact Info)Bkhbmtralnp21/05/2025 2:00 PM ESTAncillary Procedure [facility] S[facility] [place] [address] Insulin controlled gestational diabetes mellitus (GDM) during , antepartum ([facility]) Social History Tobacco UseTypesPacks/DayYears UsedDateSmoking Tobacco: NeverSmokeless Tobacco: NeverAlcohol UseStandard Drinks/WeekCommentsNever0 (1 standard drink = 0.6 oz pure alcohol)Estimated Date of JxakmszvUrfualrcWet84/01/2025Based on last menstrual period of 09/16/2024Sex and Gender InformationValueDate Recorded Sex Assigned at BirthNot on fileLegal CksRwynow28/15/2023 11:47 PM EDTGender IdentityNot on fileSexual OrientationNot on filedocumented as of this encounter Plan of Treatment DateTypeDepartmentCare Team (Latest Contact Info)Zyusdpynffg17/10/2025 1:00 PM ESTRoutine [facility] SANTO [address] [place] [address] Mukul Foy, [address] [place], [place] [id number] 07/28/2025 4:00 PM ESTOffice Visit [facility] [address] [address] Mukul Foy, DO [address] [facility] [address] [place] [address] documented as of this encounter Goals GoalPatient Goal TypeAssociated ProblemsRecent ProgressPatient-Stated?Author Reminders Care PlanOB RemindersNoOpen Scheduling, Backgrounddocumented as of this encounter Procedures Procedure NamePriorityDate/TimeAssociated DiagnosisCommentsUS OB FOLLOW UP TRANSABDOMINAL UZHEIAYISpqmaii96/05/2025 2:26 PM EST Insulin controlled gestational diabetes mellitus (GDM) during , antepartum ([facility]) documented in this encounter Results * OB follow up transabdominal approach (05/28/2025 2:26 [...] Reyes MD Authorizing ProviderResult TypeResult StatusCorey Law [facility] US PROCEDURES Final Result documented in this encounter Visit Diagnoses Diagnosis Insulin controlled gestational diabetes mellitus (GDM) during , antepartum ([facility]) documented in this encounter Additional Health Concerns Active ProblemsNoted DateDiagnosed DateOB Yfboknyjv45/09/2025 documented as of this encounter
--- OUTSIDE RECORDS SUMMARY | 2025-05-28 14:30 | XMS_ITS | Encounter Summary ---
Author Organization [facility] Address [address] [place] [address] Care Team Providers Care Chemical Laboratory Tester Name Role Phone Unavailable Primary Care Provider Unavailabl e Reason for Visit * ReasonCommentsRoutine Visit Encounter Details DateTypeDepartmentCare Team (Latest Contact Info)Sltiacjssae21/05/2025 2:30 PM ESTRoutine [facility] [place] [facility] [address] [place] [address] Regina Barton PA [address] [place] [address] Third trimester ([facility]); 36 weeks gestation of ([facility]) Social History Tobacco UseTypesPacks/DayYears UsedDateSmoking Tobacco: NeverSmokeless Tobacco: NeverAlcohol UseStandard Drinks/WeekCommentsNever0 (1 standard drink = 0.6 oz pure alcohol)Estimated Date of RpjkaoylDprrutjaAmr10/01/2025ased on last menstrual period of 09/16/2024Sex and Gender InformationValueDate Recorded Sex Assigned at BirthNot on fileLegal UqcVyrkpc87/15/2023 11:47 PM EDTGender IdentityNot on fileSexual OrientationNot on filedocumented as of this encounter Last Filed Vital Signs Vital SignReadingTime TakenCommentsBlood Qispopim473/80107/28/2024 2:52 PM EST Pulse--Temperature--Respiratory Rate--Oxygen Saturation--Inhaled Oxygen Concentration--Ydivmp844 kg (237 lb 12.8 oz)05/28/2025 2:52 PM [...] nursing note reviewed. Exam conducted with a mobile home lot utility worker present. Vitals: Estimated body mass index is [...] Plan of Treatment DateTypeDepartmentCare Team (Latest Contact Info)Snnhrwyzyvk07/10/2025 1:00 PM ESTRoutine [facility] [place] [facility] [address] [place] [phone] Mukul Foy, DO [address] [place] [address] 07/28/2025 4:00 PM ESTOffice Visit [facility] [address] [phone] Mukul Foy, DO [address] [place], [place] [phone] NameTypePriorityAssociated DiagnosesOrder ScheduleCULTURE, GROUP B STREP WITH SUSCEPTIBLITYLabRoutine Third trimester ([facility]) Expected: 05/28/2025, Expires: 05/28/2026documented as of this encounter Goals GoalPatient Goal TypeAssociated ProblemsRecent ProgressPatient-Stated?Author Reminders Care PlanOB RemindersNoOpen Scheduling, Backgrounddocumented as of this encounter Procedures Procedure NamePriorityDate/TimeAssociated DiagnosisCommentsPOCT URINALYSIS LNJISHKGOgqsipq67/05/2025 2:52 PM EST 36 weeks gestation of [...] 2:52 PM EST Narrative Authorizing ProviderResult TypeResult Status[facility] TEST ENTER/EDIT ORDERABLESFinal Result documented in this encounter Visit Diagnoses Diagnosis Third trimester ([facility]) state, incidental 36 weeks gestation of ([facility]) documented in this encounter Additional Health Concerns Active ProblemsNoted DateDiagnosed DateOB Bqknqzsch51/09/2025 documented as of this encounter
--- OUTSIDE RECORDS SUMMARY | 2025-05-31 09:08 | XMS_ITS | CCD ---
Author Organization [facility] CliniSyfl Care Team Providers Care Bus Starter Name Role Phone Jannette Peña I Primary Care Provider Ynes Rodriguez Primary Care Provider Fede [facility] Primary Care Provide r LAW, MUKUL R Admitting Unavailable LAW, MUKUL R Primary Care Unavailable LAW, MUKUL R Admitting Unavailable LAW, MUKUL R Primary Care Unavailable LAW, MUKUL R Admitting Unavailable LAW, MUKUL R Primary Care Unavailable BERTO LIVE Admitting Unavailabl e LAW, MUKUL R Primary Care Unavailable Fede WATCH CASE POLISHER - REMANUFACTURING TECHNICIAN, Ynes Conner Primary Care Provide r Unavailable Primary Care Provider Unavailabl e LAW ., DR DE LA TORRE Attending Unavailable MISC, DR YAÑEZ Primary Care Unavailable TORRINGTON, DR YELENA Henao Consulting Unavailable LAW ., [...] Unavailable MISC, DR YAÑEZ Primary Care Unavailable TORRINGTON, DR YELENA Henao Consulting Unavailable LAW ., [...] FOY Attending Unavailable MUKUL FOY Referring Unavailable LAW, MUKUL Attending Unavailable LAW, MUKUL Attending Unavailable LAW, MUKUL Attending Unavailable VIRGIL BARTON Attending Unavailable VIRGIL BARTON Attending Unavailable CEASAR LI Attending Unavailable MUKUL FOY Attending Unavailable VIRGIL BARTON Attending Unavailable MUKUL FOY Attending Unavailable Medications Current Medications MedicationDrug Class(es)DatesSig (Normalized)Sig (Original)atorvastatin 10 mg oral tablet (1 source)HMG-CoA Reductase InhibitorStart: 87-16-2089nbjm 1 tablet by mouth once dailyatorvastatin (LIPITOR) 10 MG tablet Take 1 tablet by mouth daily 30 tablet 5 02/20/2024 Activecephalexin 500 mg oral capsule (4 sources)Cephalosporin AntibacterialStart: 04-03-2025 End: 69-38-1329qxfa 1 capsule by mouth in the morning, [...] mg oral tablet (8 sources)Histamine-1 Receptor AntagonistStart: 31-37-8045emvk 1 tablet by mouth once dailycetirizine (ZYRTEC) 10 MG tablet Take 1 tablet by mouth daily 90 tablet 3 03/12/2021 ActiveStart: 59-44-5695jzkv 1 tablet by mouth once daily cetirizine (ZYRTEC) 10 MG tablet Take 1 tablet by mouth daily 90 tablet 3 06/29/2020 Activedrospirenone 4 mg oral tablet (1 source)ProgestinStart: 47-07-9881atul 1 tablet by mouth once daily Drospirenone (SLYND) 4 MG TABS Indications: Irregular menses Take 1 tablet by mouth daily 84 tablet4 05/12/2021 Activedrospirenone 3 mg / ethinyl estradiol 0.03 mg oral tablet (9 sources)Progestin, EstrogenStart: 20-68-1022WBMAC 3-0.03 MG TABS Indications: Irregular menses TAKE 1 TABLET DAILY 84 tablet 0 05/03/2021 ActiveStart: 32-57-0448fbxc 1 tablet by mouth once dailydrospirenone-ethinyl estradiol (CHANDANA 28) 3-0.03 MG TABS Indications: Irregular menses Take 1 tablet by mouth daily 3 packet 4 03/03/2020 ActiveEthinyl Estradiol / Ferrous fumarate / Norethindrone (6 sources)EstrogenStart: 71-58-9248FRITH FE 24 1-20 MG-MCG(24) TABS Indications: DUB (dysfunctional uterine bleeding) TAKE 1 TABLET DAILY 84 tablet 1 08/27/2018 ActiveStart: 05-27-5192kzed 1 tablet by mouth once dailyNorethin David-Eth Estrad-FE 1-20 MG-MCG(24) TABS Indications: Irregular menses Take 1 tablet by mouth daily 28 tablet 12 05/04/2018 ActiveStart: 87-12-5592evjk 1 tablet by mouth once dailyNorethin David-Eth Estrad-FE ( 24) 1-20 MG- MCG(24) TABS Indications: Irregular menses Take 1 tablet by mouth daily 84 tablet 3 07/21/2017 Activefexofenadine / Pseudoephedrine (2 sources)alpha-Adrenergic Agonist, Histamine-1 Receptor Antagonist Fexofenadine-Pseudoephedrine (JOSÉ MIGUEL-D PO) Take by mouth 0 Activefluconazole 150 mg oral tablet (1 source)Azole AntifungalStart: 14-26-7559txnk 1 tablet by mouth once daily as neededfluconazole (DIFLUCAN) 150 MG tablet Indications: Vaginal yeast infection Take 1 tablet by mouth daily as needed (yeast) 1 tablet 11 03/24/2020 Active fluticasone propionate 0.05 mg/actuat metered dose nasal spray (5 sources)Corticosteroidfluticasone (FLONASE) 50 MCG/ACT nasal spray 1 spray by Each Nare route daily 0 Active3 ml insulin glargine 100 unt/ml pen injector (16 sources)Insulin AnalogStart: 05-14-2025 End: 70-96-1193sdmiibz glargine (Lantus SoloStar) 100 UNIT/ML pen Indications: Hyperglycemia Inject 15 Units underthe skin at bedtime FILL ACCORDING TO INSURANCE COVERAGE 3 mL 05/14/2025 06/13/2025 ActiveStart: 04-07-2025 End: 10-24-9808omuaww 10 [IU] by subcutaneous injection at bedtimeinsulin glargine (Lantus SoloStar) 100 UNIT/ML pen Indications: Hyperglycemia Inject 10 Units underthe skin at bedtime FILL ACCORDING TO INSURANCE COVERAGE 3 mL 04/07/2025 05/14/2025 Discontinued (Reorder)loratadine 10 mg oral capsule (2 sources)take 1 capsule by mouth once dailyloratadine (CLARITIN) 10 MG capsule Take 10 mg by mouth daily 0 Ubgkqa83 hr metFORMIN hydrochloride 500 mg extended release oral tablet (20 sources)BiguanideStart: 02-11-2025 End: 24-47-6512pmoe 2 tablets by mouth every twenty-four hours at mealtime metFORMIN XR (Glucophage-XR) 500 MG 24 hr tablet Indications: Second trimester ([facility]) , 20 weeks gestation of ([facility]) Take 2 tablets (1,000 mg) by mouth in the evening. Take with meals 60 tablet 5 02/11/2025 08/10/2025 ActiveStart: 11-05-2024 End: 38-07-1804yhkj 1 tablet by mouth every twenty-four hours in the morning metFORMIN XR (Glucophage-XR) 500 MG 24 hr tablet Take 1,000 mg by mouth in the morning and 1,000 mgin the evening. 11/05/2024 02/11/2025 Discontinued (Reorder) Start: 11-05-2024 End: 53-87-1725orpWRVVMO (GLUCOPHAGE-XR) 500 MG extended release tablet Indications: BMI 37.0-37.9, adult , Class 2 obesity with body mass index (BMI) of 37.0 to 37.9 in adult, unspecified obesity type, unspecifiedwhether serious comorbidity present TAKE 2 TABLETS BY MOUTH IN THE MORNING AND AT BEDTIME 120 tablet 5 11/05/2024 05/04/2025 ActiveStart: 04-26-2024 End: 38-52-7900eacQJUFLP (GLUCOPHAGE-XR) 500 MG extended release tablet Indications: BMI 37.0-37.9, adult , Class 2 obesity with body mass index (BMI) of 37.0 to 37.9 in adult, unspecified obesity type, unspecifiedwhether serious comorbidity present Take 2 tablets by mouth in the morning and at bedtime 360 tablet 1 04/26/2024 10/23/2024 Activemetoclopramide 10 mg oral tablet (20 sources)Dopamine-2 Receptor AntagonistStart: 03-12-2025 End: 03-95-7370qirfpbudzrwceh (Reglan) 10 MG tablet Indications: Gastroesophageal reflux [...] 50 mg oral capsule (4 sources)Nitrofuran AntibacterialStart: 74-27-7899fiio 1 capsule by mouth once dailynitrofurantoin (MACRODANTIN) 50 MG capsule Indications: Recurrent UTI Take 1 capsule by mouth nightly 30 capsule 0 03/03/2020 Activepantoprazole 40 mg delayed release oral tablet (20 sources)Proton Pump InhibitorStart: 02-26-2025 End: 96-14-2755awvu 1 tablet by mouth before mealtimepantoprazole (Protonix) 40 MG EC tablet Indications: 23 weeks gestation of ([facility]) , Elevated blood sugar level , Gastroesophageal reflux disease without esophagitis Take 1 tablet (40 mg)by mouth in the morning. Take before meals. Do not crush, chew, or split. 30 tablet 11 02/26/2025 02/26/2026 Activephentermine hydrochloride 37.5 mg oral tablet (1 source)Sympathomimetic Amine AnorecticStart: 05-01-2024 End: 84-99-2478hpns 37-37.9 tablets by mouth once dailyphentermine (ADIPEX-P) [...] mg oral capsule (12 sources)Start: 04-02-2025 End: 99-69-4050fjun 1 capsule by mouth once dailyiron polysaccharides (ProFe) 391.3 (180 Fe) MG capsule Indications: Dizziness Take 1 capsule (391.3mg) by mouth Daily 30 capsule 6 04/02/2025 05/02/2025 ActiveProbiotic Product (PROBIOTIC ADVANCED PO) (6 sources)Probiotic Product (PROBIOTIC ADVANCED PO) Take by mouth Active Probiotic Product (PROBIOTIC ADVANCED PO) Take by mouth 0 ActiveProgesterone (1 source)ProgesteroneStart: 97-08-9769Zbuktgidwgxb [address] 200 mg vaginally nightly 10/16/2024 ActiveProgesterone 200 MG suppository (2 sources)Start: 11-14-2024 End: 53-52-8612Bvjmeqnhjmkr 200 MG suppository Indications: History of miscarriage Insert 200 mg into the vagina at bedtime Insert suppository vaginally every night at bedtime until 12 weeks gestation 30 suppository 2 11/14/2024 12/14/2024 ActiveStart: 10-16-2024 End: 99-77-3498Upgpnwvzscot 200 MG suppository Indications: History of miscarriage Insert 200 mg into the vagina at bedtime Insert suppository vaginally every night at bedtime until 12 weeks gestation 30 suppository 3 10/16/2024 11/14/2024 Discontinued (Reorder)sertraline 25 mg oral tablet (20 sources)Serotonin Reuptake InhibitorStart: 39-33-1513tque 1 tablet by mouth once dailysertraline (ZOLOFT) 25 MG tablet Take 1 tablet by mouth daily 30 tablet 5 11/12/2024 ActiveStart: 78-92-9773rpmh 1 tablet by mouth once daily in the morningsertraline (Zoloft) 50 MG tablet Indications: Anxiety, generalized TAKE 1 TABLET BY MOUTH EVERY DAYIN THE MORNING 30 tablet 3 10/25/2024 Active Start: 79-08-6377jdwd 1 tablet by mouth once daily in the morningsertraline (Zoloft) 50 MG tablet Indications: Anxiety, generalized (CMS/HCC) TAKE 1 TABLET BY MOUTHEVERY DAY IN THE MORNING 30 tablet 3 06/27/2024 ActiveStart: 10-17-2023 take 1 tablet by mouth once dailysertraline (ZOLOFT) 50 MG tablet Indications: Anxiety Take 1 tablet by mouth daily 30 tablet 10/17/2023 ActiveStart: 15-32-3742pdmv 1 tablet by mouth once dailysertraline (ZOLOFT) 25 MG tablet Indications: Anxiety Take 1 tablet by mouth daily 90 tablet 3 03/29/2022 Active Start: 93-74-1812suxi 1 tablet by mouth once dailysertraline (ZOLOFT) 25 MG tablet Take 1 tablet by mouth daily 90 tablet 3 03/12/2021 ActiveStart: 22-83-3157tpfl 1 tablet by mouth once dailysertraline (ZOLOFT) 50 MG tablet Take 1 tablet by mouth daily 30 tablet 2 08/17/2020 Activesulfamethoxazole 800 mg / trimethoprim 160 mg oral tablet (2 sources)Dihydrofolate Reductase Inhibitor Antibacterial, Sulfonamide AntimicrobialStart: 77-59-4753pxpp 1 tablet by mouth every twelve hours sulfamethoxazole-trimethoprim (BACTRIM DS;SEPTRA DS) 800-160 MG per tablet TAKE 1 TABLET BY MOUTH EVERY 12 HOURS FOR 7 DAYS 0 02/24/2020 ActiveTirzepatide (MOUNJARO) 2.5 MG/0.5ML SOPN SC injection (1 source)Start: 32-41-6688Qzxslfypsko (MOUNJARO) 2.5 MG/0.5ML SOPN SC injection Indications: Mixed hyperlipidemia , BMI 37.0-37.9, adult , Class 2 obesity with body mass index (BMI) of 37.0 to 37.9 in adult, unspecified obesity type, unspecified whether serious comorbidity present Inject 0.5 mLs into the skin once a week 4 mL 1 05/01/2024 ActivetraZODone hydrochloride 50 mg oral tablet (1 source)Serotonin Reuptake InhibitorStart: 41-58-9830ywzf 0.5 tablet by mouth once dailytraZODone (DESYREL) 50 MG tablet Take 0.5 tablets by mouth nightly 30 tablet 2 05/01/2020 Active Completed/Discontinued Medications MedicationDrug Class(es)DatesSig (Normalized)Sig (Original)norethindrone 0.35 mg oral tablet (2 sources)Start: 03-10-2023 End: 26-71-5179aylx 1 tablet by mouth in the morningnorethindrone (Micronor) 0.35 MG tablet Indications: General counseling and advice on contraceptive management Take 1 tablet (0.35 mg) by mouth in the morning. 28 tablet 11 03/10/2023 07/15/2024 Discontinued (Therapy completed)omeprazole 20 mg delayed release oral capsule (8 sources)Proton Pump InhibitorStart: 01-15-2025 End: 07-48-9732zoag 1 capsule by mouth before mealtimeomeprazole (PriLOSEC) [address] capsule Indications: Gastroesophageal Reflux Disease , Heartburn Take 1 capsule (20 mg) by mouth in the morning. Take before meals. Do not crush or chew. 30 capsule 3 01/15/2025 02/26/2025 Discontinued (Formulary change) Problems Active Problems Problem ClassificationProblemDateDocumented DateEpisodic/Chronic Administrative/social admission (4 sources)Dietary counseling and surveillance; Translations: [DIETARY COUNSELING AND SURVEILLANCE]Onset: 39-83-7794TkkwuztkPdgtwip disorders (20 sources)Anxiety; Translations: [Anxiety disorder, unspecified]Onset: 906732-10-3083RleyymuXwcbnfltvm associated with dizziness or vertigo (2 sources)Dizziness; Translations: [Dizziness and giddiness]53-40-3359Iiyzgrwr Deficiency and other anemia (2 sources)Anemia; Translations: [Anemia, unspecified]43-98-1548JzjuriolRroplpnx or abnormal glucose tolerance complicating ; childbirth; or the puerperium (12 sources)Gestational diabetes mellitus in , unspecified control; Translations: [Gestational diabetes mellitus complicating ]Onset: 939950-13-5022KgitawogJymounwet of lipid metabolism (7 sources)Mixed hyperlipidemia; Translations: [Mixed hyperlipidemia]Onset: 151543-91-7149RqxiazwQnyzjnbqik disorders (6 sources)Gastroesophageal reflux disease; Translations: [Gastro-esophageal reflux disease without esophagitis]Onset: hronic Genitourinary symptoms and ill-defined conditions (2 sources)Urinary symptoms ; Translations: [Unspecified symptoms and signs involving the genitourinary system]90-48-5897EnilqlncGcayuzynde during ; abruptio placenta; placenta previa (1 source)Other antepartum hemorrhage, first trimester; Translations: [Other antepartum hemorrhage, first trimester]Onset: 79-77-6772DhryprkiXvzwtuvugmmkr and screening for infectious disease (4 sources)Encounter for screening for infections with a predominantly sexual mode of transmission; Translations: [Encounter for screening for human papillomavirus (HPV)]Onset: 539322-37-0886AlzkuottUnxlfeppvspjl mental health disorders (20 sources)Insomnia disorder related to another mental disorder; Translations: [Insomnia due to other mental disorder]Onset: 05-02-2020 Resolved: 063106-18-8581ZxgxenaUgiea complications of (4 sources)Maternal care for excessive growth, third trimester, not applicable or unspecified; Translations: [MAT CARE EXCSS FT GR 3RD TRI UNS] Onset: 65-67-0677LjxumqxdPdfwi complications of (3 sources)Maternal care for excessive growth, unspecified trimester, not applicable or unspecified; Translations: [MAT CARE EXCSS FTL GRTH UNS TRI UNS] Onset: 77-51-2380TklypviqFdmmw complications of (2 sources)Gastroesophageal reflux disease in ; Translations: [Diseases of the digestive system complicating , unspecified trimester] 43-86-5176SnkjpmkmJpnct female genital disorders (20 sources)Pain in female genitalia on intercourse; Translations: [Unspecified dyspareunia]Onset: 11-30-2020 Resolved: 408190-11-7647AiqnsrrVzhbi female genital disorders (2 sources)Vaginal discharge; Translations: [Other specified noninflammatory disorders of vagina]44-37-0158ZxnvsibcBtfda injuries and conditions due to external causes (4 sources)Encounter for examination and observation following other accident; Translations: [ENC EXAM AND OBSERVATION FOLLOW OTH ACC]Onset: 13-17-4232Bglplcgp Other liver diseases (3 sources)Steatosis of liver; Translations: [Fatty (change of) liver, not elsewhere classified]Onset: 394617-93-0836MkzmxhqBvwyj nutritional; endocrine; and metabolic disorders (1 source)Body mass index 30+ - obesity; Translations: [Body mass index (BMI) 37.0-37.9, adult]Onset: 873409-16-3656KfbcikdVvjtg nutritional; endocrine; and metabolic disorders (3 sources)Obesity; Translations: [Class 2 obesity with body mass index (BMI) of 37.0 to 37.9 in adult]Onset: 348164-88-3218CacyfldCbycj and delivery including normal (20 sources)Encounter for supervision of normal , unspecified, unspecified trimester; Translations: [ state, incidental]Onset: 42-17-8913TmsggwzaBkcfd screening for suspected conditions (not mental disorders or infectious disease) (20 sources)Encounter for other screening follow-up; Translations: [Encounter for screening, unspecified]Onset: 34-62-2759OpmojycqDbvyx upper respiratory disease (8 sources)Seasonal allergic rhinitis; Translations: [Other seasonal allergic rhinitis]Onset: 405882-04-8806SnbxglpVtswdxbzljtmak and other problems of amniotic cavity (4 sources)Subchorionic hematoma; Translations: [Other specified disorders of amniotic fluid and membranes, first trimester, not applicable or unspecified] Onset: 305215-58-0679ErcnrxgyNnhbdfqv codes; unclassified (1 source)34 weeks gestation of ; Translations: [34 WEEKS GESTATION OF ]Onset: 72-99-0688WahcqyjrTwjjsqub codes; unclassified (1 source)33 weeks gestation of ; Translations: [33 WEEKS GESTATION OF ]Onset: 42-49-2664MaodkijhHkgrjtux codes; unclassified (1 source)Gestation period, 8 weeks; Translations: [8 weeks gestation of ]23-44-1582BzfctrhtWthvflxl codes; unclassified (3 sources)H/O: miscarriage; Translations: [Personal history of other complications of , childbirth and the puerperium]53-43-3318Nhngjrdv Residual codes; unclassified (2 sources)Gestation period, 12 weeks; Translations: [12 weeks gestation of ]29-84-9527EeosykvaCavhzouy codes; unclassified (2 sources)Gestation period, 17 weeks; Translations: [17 weeks gestation of ]38-45-3976JwwkxvtbMbwvqoij codes; unclassified (2 sources)Gestation period, 20 weeks; Translations: [20 weeks gestation of ]56-60-8864SpnlrftqDjhvbydd codes; unclassified (2 sources)Gestation period, 25 weeks; Translations: [25 weeks gestation of ]20-76-8815LfycwypgEsdfrwyp codes; unclassified (2 sources)Gestation period, 28 weeks; Translations: [28 weeks gestation of ]45-31-2704RrlblodyMyatkjpa codes; unclassified (2 sources)Gestation period, 30 weeks; Translations: [30 weeks gestation of ]07-54-1005MfjldxxdGmkbvbte codes; unclassified (2 sources)Gestation period, 32 weeks; Translations: [32 weeks gestation of ]54-14-9750VijgghqdUezqrgbs codes; unclassified (2 sources)Gestation period, 34 weeks; Translations: [34 weeks gestation of ]96-42-1678FgjllyxuMhtfesau codes; unclassified (2 sources)Gestation period, 36 weeks; Translations: [36 weeks gestation of ]87-29-8635QgaqivpuCwsijanitnrz (1 source)Cancer cervix screening status; Translations: [Screening for cervical cancer]Unclassified (3 sources)Patient encounter status; Translations: [Encounter for annual routine gynecological examination]Unclassified (20 sources)OB RemindersOnset: 450833-18-5312 Past or Other Problems Problem ClassificationProblemDateDocumented DateEpisodic/ChronicCardiac dysrhythmias (2 sources)Palpitations; Translations: [Palpitations]Onset: 39-61-3349Ufxlrlgo Deficiency and other anemia (3 sources)Iron deficiency anemia; Translations: [Iron deficiency anemia, unspecified]Onset: 508724-53-7811ZlxpztepDwdvxugrrv and other anemia (1 source)Iron deficiency anemia, unspecified; Translations: [Iron deficiency anemia, unspecified]Onset: 42-06-5248CpcrhqqkYmnsviuk mellitus without complication (20 sources)Other abnormal glucose; Translations: [Abnormal glucose level]Onset: 20-68-0582SbzopwobNselrvx and fatigue (20 sources)Fatigue; Translations: [Other fatigue]Onset: EpisodicMenstrual disorders (20 sources)Amenorrhea; Translations: [Amenorrhea, unspecified]Onset: 06-23-2022 Resolved: 23-42-9077PthezomMsmfi disorders of stomach and duodenum (20 sources)Indigestion; Translations: [Functional dyspepsia]Onset: 01-13-2023 46-74-3921HgnunqopDzpqs female genital disorders (4 sources)Other specified noninflammatory disorders of vagina; Translations: [OTH SPEC NONINFLAMMATORY D/O VAGINA]Onset: 97-59-2701PdjmflkbRoliw gastrointestinal disorders (20 sources)Heartburn; Translations: [Heartburn]Onset: EpisodicOther liver diseases (4 sources)Elevated liver enzymes level; Translations: [Abnormal levels of other serum enzymes]Onset: 904046-15-0750ZmmwbzriEismo liver diseases (1 source)Abnormal levels of other serum enzymes; Translations: [Abnormal levels of other serum enzymes]Onset: 51-78-8695KuckbmrrTuorn skin disorders (3 sources)Acne; Translations: [Acne, unspecified]Onset: 10-17-2023 Resolved: 101486-75-4037UcuemihjEmazk upper respiratory infections (2 sources)Sore throat symptom; Translations: [Acute pharyngitis, unspecified] Onset: 09-10-2024 Resolved: 792970-84-5938SzcbgmesDfmhgkov codes; unclassified (1 source)Family history of other diseases of the digestive system; Translations: [Family history of other diseases of the digestive system]Onset: 60-53-6576PlihcqlnWbphpyin codes; unclassified (20 sources)Gestation period, 23 weeks; Translations: [23 weeks gestation of ]Onset: 580937-73-8245HlalefrfAatxfml tract infections (20 sources)Recurrent urinary tract infection; Translations: [Urinary tract infection, site not specified]Onset: 11-30-2020 Resolved: 90-85-6936Mmxlufgn Results Test NameValueInterpretationReference RangeFacilityUS OB BPP W NON-STRESS on 79[place]92[place] [address] Ultrasound Report Signed Patient: VINNY DOWNEY MR#: [id number] : 2000 Acct:[id number] Age/Sex: 24 / F ADM Date: 05/28/25 Loc: US Attending Dr: Mukul Foy D.O. Ordering Physician: Mukul Foy D.O. Date of Service: 05/28/25 Procedure(s): US OB BPP w non-stress Accession Number(s): [id number] cc: Mukul Foy D.O.; Ynes Rodriguez [place] [address] Patient Name: VINNY DOWNEY MRN: [facility]:[id number] date: 2000 Sex: F Assigned Patient Location: US Current Patient Location: US Accession/Order Number: [id number] Exam Date: 05/28/2025 16:05 Report Date: 05/29/2025 10:10 At the request of: MUKUL FOY DO Procedure: US OB BPP w non-stress BIOPHYSICAL PROFILE: CLINICAL INFORMATION: Gestational diabetes mellitus There is a single live intrauterine gestation in cephalic presentation. The reported gestational age is 36 weeks 2 days. The heart rate measures 134 beats per minute. FINDINGS: TONE: 1 or more episodes of activity extension and flexion of extremity or opening and closing of the hand [Y] 2/2 GROSS BODY MOVEMENTS: 3 or more discrete body or limb movements [Y] 2/2 BREATHING MOVEMENTS: 1 or more episodes of breathing lasting at least 30 seconds [Y] 2/2 JAMAL: A single deepest vertical pocket of amniotic fluid greater than 2 cm [Y] 2/2 JAMAL: 15.6 cm Total score: 8/8 US/US OB BPP w non-stress IMPRESSION: NORMAL BIOPHYSICAL PROFILE Impression dictated by: Criselda Flores M.D. 05/29/2025 10:10 AM Dictation Location: [place] [address] Electronically authenticated by: [id number] Y Date: 05/29/2025 10:10 Dictated By: Criselda Flores M.D. Signed By: 05/29/25 1013 DD/ 1010 TD/TT: Tin Flipper:JAMILAHadiologvicki, Radiologist, - 05/29/2025 [place] [address] Ultrasound Report Signed Patient: VINNY DOWNEY MR#: [id number] : 2000 Acct:[id number] Age/Sex: 24 / F ADM Date: 05/28/25 Loc: US Attending Dr: Mukul Foy D.O. Ordering Physician: Mukul Foy D.O. Date of Service: 05/28/25 Procedure(s): US OB BPP w non-stress Accession Number(s): [id number] cc: Mukul Foy D.O.; Ynes Rodriguez DEPUTY JAILER The [place] [address] Patient Name: VINNY DOWNEY MRN: [facility]:[id number] date: 2000 Sex: F Assigned Patient Location: Current Patient Location: US Accession/Order Number: [id number] Exam Date: 05/28/2025 16:05 Report Date: 05/29/2025 10:10 At the request of: MUKUL FOY DO Procedure: US OB BPP w non-stress BIOPHYSICAL PROFILE: CLINICAL INFORMATION: Gestational diabetes mellitus There is a single live intrauterine gestation in cephalic presentation. The reported gestational age is 36 weeks 2 days. The heart rate measures 134 beats per minute. FINDINGS: TONE: 1 or more episodes of activity extension and flexion of extremity or opening and closing of the hand [Y] 2/2 GROSS BODY MOVEMENTS: 3 or more discrete body or limb movements [Y] 2/2 BREATHING MOVEMENTS: 1 or more episodes of breathing lasting at least 30 seconds [Y] 2/2 JAMAL: A single deepest vertical pocket of amniotic fluid greater than 2 cm [Y] 2/ JAMAL: 15.6 cm Total score: 8/8 US/US OB BPP w non-stress IMPRESSION: NORMAL BIOPHYSICAL PROFILE Impression dictated by: Criselda Flores M.D. 05/29/2025 10:10 AM Dictation Location: [place] [address] Electronically authenticated by: [id number] Y Date: 05/29/2025 10:10 Dictated By: Criselda Flores M.D. Signed By: 05/29/25 1013 DD/ 1010 TD/TT: Tin Flipper: NOMRenzo HealthcareRadiology Study observation (narrative)NOMS HealthcareUS OB BPP W NON-STRESSOrdered By: Radiologist Radiology on 55-50-2669PCTR AT Internet Work Phone: us OB FOLLOW UP TRANSABDOMINAL APPROACHon [id number] OB FOLLOW UP TRANSABDOMINAL APPROACHFINDINGS: Comparison February 11, 2025. A single, live intrauterine is present with normal cardiac rate of 127 beats per minute. Normal activity and amniotic fluid volume. Amniotic fluid index is 16 cm. Morphology is grossly normal. The current sonographic age is 35 weeks and 5 days, based on the following measurements: BPD 8.7 cm (34 weeks, 6 days) Head Circumference 32.5 cm (36 weeks, 5 days) Abdominal Circumference 31.7 cm (35 weeks, 4 days) Femur Length 7.0 cm (35 weeks, 5 days) Presentation Cephalic Weight (g) by Percentile 35.0 % * These measurements result in an estimated date of delivery of June 27, 2025 The current estimated weight is 2735 grams (6 pounds, 0 ounces). IMPRESSION: Single, live intrauterine , current sonographic age of 35 weeks and 5 days, with an estimated date of delivery of June 27, 2025 (prior JOCELIN June 24, 2025). * Estimated Weight (g) by Percentile is based upon an accurate estimated age based on last menstrual period. TRANSCRIBED BY: ELECTRONICALLY SIGNED BY: Ron Reyes MDNormalNot AvailableComment on above:Order Comment: US OB SCAN FOR GROWTH Estimated Date of Delivery: 06/23/25 Gestational Age as of 05/14/2025: 02o6tZffvapuyhk macro (dipstick) panel (U)on 68-64-5581Tnmtwskeg, UANegativeNegative - 4(70) +++ mg/dLNOMS HealthcareBlood, UANegativeNegative - 50 Yunior/mcLNOMS HealthcareClarity, UAClearNOMS Healthcare Color, UAYellowNOMS HealthcareGlucose, UANegativeNegative - 2000(110) ++++ mg/dL NOMS HealthcareInterpretation and review of laboratory resultsNormalNOMS HealthcareKetones, UANegativeNegative - 160(16) ++++ mg/dLNOMS Healthcare Leukocytes, UANegativeNegative - 500+++ Trip/mcLNOMS HealthcareNitrite, UA NegativeNegative - PositiveNOMS HealthcarepH, UA6.55 - 9NOMS HealthcareProtein, UANegativeNegative - 2000(20) ++++ mg/dLNOMS HealthcareSpec Grav, UA1.0051 - 1.03NOMS HealthcareUrobilinogen, UA1.00.2 - 12 mg/dLNOMS HealthcareNOMS HealthcareUS OB BPP W NON-STRESSon 92-04-6204[place]on[place], [place] [address] Ultrasound Report Signed Patient: VINNY DOWNEY MR#: [id number] : 2000 Acct:[id number] Age/Sex: 24 / F ADM Date: 05/21/25 Loc: US Attending Dr: Mukul Foy D.O. Ordering Physician: Mukul Foy D.O. Date of Service: 05/21/25 Procedure(s): US OB BPP w non-stress Accession Number(s): [id number] cc: Mukul Foy D.O.; Ynes Rodriguez DEPUTY JAILER [address] [address] Patient Name: VINNY DOWNEY MRN: [id number]:[id number] date: 2000 Sex: F Assigned Patient Location: [facility] Current Patient Location: Accession/Order Number: [id number] Exam Date: 05/21/2025 16:12 Report Date: 05/21/2025 19:56 At the request of: MUKUL FOY DO Procedure: US OB BPP w non-stress Ultrasound biophysical profile INDICATION: Gestational diabetes COMPARISON: 05/07/2025 FINDINGS/IMPRESSION:: Fetus cephalic position. 8/8 score biophysical profile. heart rate 139 beats per minutes. JAMAL 19.1 cm . Impression dictated by: Chevy Moreland M.D. 05/21/2025 7:56 PM Dictation Location: [place] [address] Electronically authenticated by: [id number] Y Date: 05/21/2025 19:56 Dictated By: Chevy Moreland M.D. Signed By: 05/21/251958 DD/ 55 TD/TT: Tin Flipper:TBHRadiology, Radiologist, - 05/21/2025 [place] [address] Ultrasound Report Signed Patient: VINNY DOWNEY MR#: [id number] : 2000 Acct:[id number] Age/Sex: 24 / F ADM Date: 05/21/25 Loc: US Attending Dr: Mukul Foy D.O. Ordering Physician: Mukul Foy D.O. Date of Service: 05/21/25 Procedure(s): US OB BPP w non-stress Accession Number(s): [id number] cc: Mukul Foy D.O.; Ynse Rodriguez DEPUTY JAILER The [place] [address] Patient Name: VINNY DOWNEY MRN: TBH:[id number] date: 2000 Sex: F Assigned Patient Location: [facility] Current Patient Location: Accession/Order Number: [id number] Exam Date: 05/21/2025 16:12 Report Date: 05/21/2025 19:56 At the request of: MUKUL FOY DO Procedure: US OB BPP w non-stress Ultrasound biophysical profile INDICATION: Gestational diabetes COMPARISON: 05/07/2025 FINDINGS/IMPRESSION:: Fetus cephalic position. 8/8 score biophysical profile. heart rate 139 beats per minutes. JAMAL 19.1 cm . Impression dictated by: Chevy Moreland M.D. 05/21/2025 7:56 PM Dictation Location: [place] [address] Electronically authenticated by: [id number] Y Date: 05/21/2025 19:56 Dictated By: Chevy Moreland M.D. Signed By: 05/21/251958 DD/ 55 TD/TT: Tin Flipper: [facility] HealthcareRadiology Study observation (narrative)NOMS HealthcareUS OB BPP W NON-STRESSOrdered By: Radiologist Radiology on 33-54-7409[facility] Work Phone: Urinalysis macro (dipstick) panel (U)on 05-14-2025 Bilirubin, UANegativeNegative - 4(70) +++ mg/dLNOMS HealthcareBlood, UANegative Negative - 50 Yunior/mcLNOMS HealthcareClarity, UAClearNOMS HealthcareColor, UA YellowNOMS HealthcareGlucose, UANegativeNegative - 2000(110) ++++ mg/dLNOMS HealthcareInterpretation and review of laboratory resultsNormalNOMS Healthcare Ketones, UANegativeNegative - 160(16) ++++ mg/dLNOMS HealthcareLeukocytes, UA NegativeNegative - 500+++ Trip/mcLNOMS HealthcareNitrite, UANegativeNegative - PositiveNOMS HealthcarepH, UA6.55 - 9NOMS HealthcareProtein, UANegativeNegative - 2000(20) ++++ mg/dLNOMS HealthcareSpec Grav, UA1.0101 - 1.03NOMS Healthcare Urobilinogen, UA2.00.2 - 12 mg/dLNOMS HealthcareNOMS HealthcareUS OB BPP W NON-STRESSon 09-70-0405W[address] [address] Ultrasound Report Signed Patient: VINNY DOWNEY MR#: [id number] : 2000 Acct:[id number] Age/Sex: 24 / F ADM Date: 04/30/25 Loc: US Attending Dr: Mukul Foy D.O. Ordering Physician: Mukul Foy D.O. Date of Service: 04/30/25 Procedure(s): US OB BPP w non-stress Accession Number(s): [id number] cc: Mukul Foy D.O.; Ynes Rodriguez DEPUTY JAILER The [address] [address] Patient Name: VINNY DOWNEY MRN: [facility]:[id number] date: 2000 Sex: F Assigned Patient Location: [facility] Current Patient Location: Accession/Order Number: [id number] Exam Date: 04/30/2025 15:57 Report Date: 04/30/2025 22:59 At the request of: MUKUL FOY DO Procedure: US OB BPP w non-stress Ultrasound biophysical profile INDICATION: Gestational diabetes COMPARISON: 04/05/2025 FINDINGS/IMPRESSION:: Fetus cephalic position. 02/28 score biophysical profile. heart rate 145 beats per minutes. JAMAL 12.7 cm. Impression dictated by: Chevy Moreland M.D. 04/30/2025 10:59 PM Dictation Location: [place] [address] Electronically authenticated by: [id number] Y Date: 04/30/2025 22:59 Dictated By: Chevy Moreland M.D. Signed By: 04/30/252301 DD/ 58 TD/TT: Tin Flipper:TBHRadiology, Radiologist, MD - 04/30/2025 The [place] [id number] Ultrasound Report Signed Patient: VINNY DOWNEY MR#: [id number] : 2000 Acct:[id number] Age/Sex: 24 / F ADM Date: 04/30/25 Loc: US Attending Dr: Mukul Foy D.O. Ordering Physician: Mukul Foy D.O. Date of Service: 04/30/25 Procedure(s): US OB BPP w non-stress Accession Number(s): [id number] cc: Mukul Foy D.O.; Ynes Rodriguez NP [place] [id number] Patient Name: VINNY DOWNEY MRN: [id number] date: 2000 Sex: F Assigned Patient Location: [facility] Current Patient Location: Accession/Order Number: [id number] Exam Date: 04/30/2025 15:57 Report Date: 04/30/2025 22:59 At the request of: MUKUL FOY DO Procedure: US OB BPP w non-stress Ultrasound biophysical profile INDICATION: Gestational diabetes COMPARISON: 04/05/2025 FINDINGS/IMPRESSION:: Fetus cephalic position. 02/28 score biophysical profile. heart rate 145 beats per minutes. JAMAL 12.7 cm. Impression dictated by: Chevy Moreland M.D. 04/30/2025 10:59 PM Dictation Location: [place] [address] Electronically authenticated by: [id number] Y Date: 04/30/2025 22:59 Dictated By: Chevy Moreland M.D. Signed By: 04/30/253 DD/ 58 TD/TT: Tin Flipper: [facility] HealthcareRadiology Study observation (narrative)NOMRenzo FletcherUS OB BPP W NON-STRESSOrdered By: Radiologist Radiology on 80-53-1623GCDPLakeland Regional Hospital Work Phone: Urinalysis macro (dipstick) panel [...] mg/dLNOMS HealthcareNOMS HealthcareUrinalysis macro (dipstick) panel (U)on 70-88-1613Celktflbw, UANegativeNegative - 4(70) +++ mg/dL NOMS HealthcareBlood, UANegativeNegative - 50 Yunior/[facility] CenterNOSD HealthcareClarity, UA ClearNOSD HealthcareColor, UAYellowNOSD HealthcareGlucose, UANegativeNegative - 2000(110) ++++ mg/dLNOSD HealthcareInterpretation and review of laboratory resultsNormalNOSD HealthcareKetones, UANegativeNegative - 160(16) ++++ mg/dLUTAH STATE HOSPITAL HealthcareLeukocytes, UANegativeNegative - 500+++ Trip/[facility] Healthcare Nitrite, UANegativeNegative - PositiveNOMS HealthcarepH, UA6.55 - 9NOMS HealthcareProtein, UANegativeNegative - 2000(20) ++++ mg/dLNOSD HealthcareSpec Grav, UA1.0051 - 1.03NOSD HealthcareUrobilinogen, UA0.20.2 - 12 mg/dLNOSD HealthcareNOMS HealthcareALL CBC WITH AUTO DIFFon 76-68-8010ISVJURINN ABSOLUTE YQQW9LNHM HealthcareBasophils/100 WBC (Bld)0.2 %0.2 - 2.0 %NOMS Healthcare Eosinophils/100 WBC (Bld)1.1 %0.9 - 7.0 %NOMS HealthcareErythrocyte distribution width (RBC) [Ratio]12.8 %11.0 - 15.0 %NOMS HealthcareHematocrit (Bld) [Volume fraction]30.7 %Low36.0 - 48.0 %NOM HealthcareHemoglobin (Bld) [Mass/Vol]10.3 g/dLLow12.0 - 16.0 g/dLNOSD HealthcareIMMATURE GRANULOCYTES ABS AUTO0.04HighNOSD HealthcareImmature granulocytes/100 WBC (Bld)0.4 %0.0 - 0.5 %[facility] Interpretation and review of laboratory resultsAbnormalNOSD Healthcare LYMPHOCYTES ABSOLUTE AUTO1.9NOMS HealthcareLymphocytes/100 WBC (Bld)17.1 %Low 20.5 - 60.0 %[facility] CenterH (RBC) [Entitic mass]29.7 pg26.7 - 34.0 pgRusk Rehabilitation CenterHC (RBC) [Mass/Vol]33.6 g/dL29.9 - 35.2 g/dLRusk Rehabilitation CenterV (RBC) [Entitic vol]88.5 fL81.0 - 99.0 fLLakeland Regional HospitalMONOCYTES ABSOLUTE AUTO0.7NOSD HealthcareMonocytes/100 WBC (Bld)6.5 %1.7 - 12.0 %[facility] HealthcareNEUTROPHILS ABSOLUTE AUTO8.2HighNOSD HealthcareNeutrophils/100 WBC (Bld)74.7 %43.0 - 75.0 % [facility] HospitalPlatelet mean volume (Bld) [Entitic vol]8.7 fLLow9.5 - 13.5 fL [facility] HospitalTBH EO #0.1NOMS HealthcareTBH VIS148EOIR [facility] CenterTB RBC3.47Low [facility] HospitalTB NOO57CKVZ HealthcareCLINISYNCNOMS HealthcareUS OB GROWTHon 03-43-7156Zcg[address] [address] Ultrasound Report Signed Patient: VINNY DOWNEY MR#: [id number] : 2000 Acct:[id number] Age/Sex: 24 / F ADM Date: 04/05/25 Loc: US Attending Dr: Virgil Barton Ordering Physician: Virgil Barton Date of Service: 04/05/25 Procedure(s): US OB growth Accession Number(s): [id number] cc: Virgil Barton; Physician,Non-Staff MPatricia The [address] [address] Patient Name: VINNY DOWNEY MRN: [facility]:[id number] date: 2000 Sex: F Assigned Patient Location: US Current Patient Location: LAB Accession/Order Number: [id number] Exam Date: 04/05/2025 10:00 Report Date: 04/05/2025 [...] Peraza M.D. 04/05/2025 12:08 PM Dictation Location: [employer] Electronically authenticated by: [id number] Y Date: 04/05/2025 12:08 Dictated By: Daryn Peraza D.O. Signed By: 04/05/25 1211 DD/ 1208 TD/TT: Tin Flipper:MILYHRadiology, Radiologist, - 04/05/2025 [place] [address] Ultrasound Report Signed Patient: VINNY DOWNEY MR#: [id number] : 2000 Acct:[id number] Age/Sex: 24 / F ADM Date: 04/05/25 Loc: US Attending Dr: Virgil Barton Ordering Physician: Virgil Barton Date of Service: 04/05/25 Procedure(s): US OB growth Accession Number(s): [id number] cc: Virgil Barton; Physician,Non-Staff Khadar The [address] [address] Patient Name: VINNY DOWNEY MRN: [id number]:[id number] date: 2000 Sex: F Assigned Patient Location: US Current Patient Location: LAB Accession/Order Number: [id number] Exam Date: 04/05/2025 10:00 Report Date: 04/05/2025 [...] Peraza M.D. 04/05/2025 12:08 PM Dictation Location: [employer] Electronically authenticated by: [id number] Y Date: 04/05/2025 12:08 Dictated By: Daryn Peraza D.O. Signed By: 04/05/25 1211 DD/ 1208 TD/TT: Tin Flipper: [facility] HealthcareRadiology Study observation (narrative)[facility] HealthcareUS OB GROWTHOrdered By: Radiologist Radiology on 16-53-4941KALXLakeland Regional Hospital Work Phone: Urinalysis macro (dipstick) panel (U)on 04-03-2025 Bilirubin, UANegativeNegative - 4(70) +++ mg/dLNOMS HealthcareBlood, UANegative Negative - 50 Yunior/mcLNOSD HealthcareClarity, UAClearNOMS HealthcareColor, UA YellowNOMS HealthcareGlucose, UANegativeNegative - 1999(110) ++++ mg/dLNOSD HealthcareInterpretation and review of laboratory resultsAbnormalNONorthwest Medical Center Ketones, UANegativeNegative - 160(16) ++++ mg/dLNOSD HealthcareLeukocytes, UA PositiveNegative - 500+++ Trip/mcLNOMS HealthcareNitrite, UANegativeNegative - PositiveNOMS HealthcarepH, UA6.55 - 9NOMS HealthcareProtein, UANegativeNegative - 2000(20) ++++ mg/dLNOMS HealthcareSpec Grav, UA1.011 - 1.03N[facility] Healthcare Urobilinogen, UA1.00.2 - 12 mg/dLNOMS HealthcareNOMS HealthcareUrinalysis macro (dipstick) panel (U)on 03-18-9636Hjtrfbugs, UANegativeNegative - 4(70) +++ mg/dL NOMS HealthcareBlood, [...] mg/dLNOMS HealthcareNOMS HealthcareUrinalysis macro (dipstick) panel (U)on 90-50-0621Iszkgioob, UA NegativeNegative - 4(70) +++ mg/dLNOMS HealthcareBlood, UANegativeNegative - 50 Yunior/mcLNOMS HealthcareClarity, UAClearNOMS HealthcareColor, UAYellowNOMS HealthcareGlucose, UANegativeNegative - 2000(110) ++++ mg/dLNOMS Healthcare Interpretation and review of laboratory resultsNormalNOMS HealthcareKetones, UA NegativeNegative - 160(16) ++++ mg/dLNOMS HealthcareLeukocytes, UANegative Negative - 500+++ Trip/[facility] CenterNOSD HealthcareNitrite, UANegativeNegative - Positive NOMS HealthcarepH, UA65 - 9NOMS HealthcareProtein, UANegativeNegative - 2000(20) ++++ mg/dLNOMS HealthcareSpec Grav, UA1.011 - 1.03NOMS HealthcareUrobilinogen, UA0.20.2 - 12 mg/dLNOMS HealthcareNOMS HealthcareUS OB 14+ WEEKS ANATOMY SCANon 01-70-9221BE OB 14+ WEEKS ANATOMY SCANFINDINGS: A single, [...] Delivery: 06/23/25 Gestational Age as of 01/15/2025: 11s5eVceycrhsud macro (dipstick) panel (U)on 21-69-6281Ppxnivqca, UANegativeNegative - 4(70) +++ mg/dLNOMS HealthcareBlood, UANegativeNegative - 50 Yunior/mcLNOMS HealthcareClarity, UAClearNOMS Healthcare Color, UAYellowNOMS HealthcareGlucose, UANegativeNegative - 1999(110) ++++ mg/dL N[facility]S HealthcareInterpretation and review of laboratory resultsNormalNOMS HealthcareKetones, UANegativeNegative - 160(16) ++++ mg/dLNOMS Healthcare Leukocytes, UANegativeNegative - 500+++ Trip/mcLNOMS HealthcareNitrite, UA NegativeNegative - PositiveNOMS HealthcarepH, UA6.55 - 9NOMS HealthcareProtein, UANegativeNegative - 1999(20) ++++ mg/dLNOMS HealthcareSpec Grav, UA1.0251 - 1.03NOMS HealthcareUrobilinogen, UA1.00.2 - 12 mg/dLNOMS HealthcareNOMS HealthcareRECURRENT VAGINITIS (HTRX)on 98-93-4470QXJLNWTAY FGLSGKK8GQYA HealthcareATOPOBIUM VAGINAENot detectedNOSD HealthcareBVAB 2,3 (BACTERIAL VAGINOSIS ASSOCIATED BACTERIA 2, 3); MOBILUNCUS TMA9VLDE HealthcareBVAB 2,3 (BACTERIAL VAGINOSIS ASSOCIATED BACTERIA 2, 3); MOBILUNCUS SPPNot detectedNOMS HealthcareCANDIDA ALBICANS, PARAPSILOSIS, YRRYVTSTED5CBXG HealthcareCANDIDA ALBICANS, PARAPSILOSIS, TROPICALISNot detectedNOMS HealthcareCANDIDA GLABRATA0 NOMS HealthcareCANDIDA GLABRATANot detectedNOMS HealthcareCANDIDA LOKIZH2AEDR HealthcareCANDIDA KRUSEINot detectedNOMS HealthcareCHLAMYDIA MYFIVGQLZPG6DOXN HealthcareCHLAMYDIA TRACHOMATISNot detectedNOMS HealthcareGARDNERELLA VAGINALIS0 NOMS HealthcareGARDNERELLA VAGINALISNot detectedNOMS HealthcareMEGASPHAERA (TYPES 1, 2)0NOMS HealthcareMEGASPHAERA (TYPES 1, 2)Not detectedNOMS Healthcare MYCOPLASMA OLMGMPDPBB8KUKO HealthcareMYCOPLASMA GENITALIUMNot detectedNOMS HealthcareNEISSERIA LGUZRJJFOBJ4LGXQ HealthcareNEISSERIA GONORRHOEAENot detected NOMS HealthcareTRICHOMONAS MEBGMTLUY2WTBW HealthcareTRICHOMONAS VAGINALISNot detectedNOMS HealthcareNOMS HealthcareCBCon 49-46-1388Uzrmsglnxwc distribution width (RBC) [Ratio]12.6 %11.8 - 14.4 %[facility] HospitalHematocrit (Bld) [Volume fraction]35.4 %Low36.3 - 47.1 %[facility] HospitalHemoglobin (Bld) [Mass/Vol]11.7 g/dLLow11.9 - 15.1 g/dLBon [facility] HospitalInterpretation and review of laboratory resultsAbnormalBon [facility] OhioH (RBC) [Entitic mass]30 pg25.2 - 33.5 pgSentara Obici HospitalHC (RBC) [Mass/Vol]33.1 g/dL 28.4 - 34.8 g/dLBon [facility] OhioV (RBC) [Entitic vol]90.8 fL82.6 - 102.9 fLBon Secours Mary Immaculate HospitalNucleated RBC/100 WBC (Bld) [Ratio]0 %0.0 per 100 WBCBon Secours Mary Immaculate HospitalPlatelet mean volume (Bld) [Entitic vol]8.7 fL8.1 - 13.5 fLBon Secours Mary Immaculate HospitalPlatelets (Bld) [#/Vol]316 10*3/uLBon [facility] HospitalRBC (Bld) [#/Vol]3.9 10*6/uLLow3.95 - 5.11 m/[facility] CenterWBC other (Bld) [#/Vol]10.2Bon [facility] HospitalErythrocyte distribution width (RBC) [Ratio]12.6 %Ayteej75.8-14.4[facility] HospitalComment on above:Performed By: #### GLUSC, CBC #### [address] [place] [place] [address] Agronomy Specialist: Yelena Greco MDHematocrit (Bld) [Volume fraction]35.4 %Low 36.3-47.1MToledo HospitalComment on above:Performed By: #### GLUSC, CBC #### [address] [place], [facility] Agronomy Specialist: Yelena Greco MDHemoglobin (Bld) [Mass/Vol]11.7 g/dLLow11.9-15.1 [facility] Hospital LimaComment on above:Performed By: #### GLUSC, CBC #### [address] [place], [place] [address] Agronomy Specialist: YULY ArandaCH (RBC) [Entitic mass]30.0 tzBfawjy21.2-33.5 [facility] LimaComment on above:Performed By: #### GLUSC, CBC #### [address] [place] [place] [address] Agronomy Specialist: TY ArandaC (RBC) [Mass/Vol]33.1 g/bYZthtzq61.4-34.8[facility] Hospital LimaComment on above:Performed By: #### GLUSC, CBC #### [address] [place], [place] [address] Agronomy Specialist: YULY ArandaCV (RBC) [Entitic vol]90.8 cVIgbpkd31.6-102.9 [facility] HospitalComment on above:Performed By: #### GLUSC, CBC #### [address] [place] [place] [address] Agronomy Specialist: JACINTA Aranda Automated0.0 per 100 WBCNormal0.0[facility] HospitalComment on above:Performed By: #### GLUSC, CBC #### [address] [place] [place] [address] Agronomy Specialist: Sobeida Aranda mean volume (Bld) [Entitic vol]8.7 fL Normal8.1-13.5[facility] Hospital LimaComment on above:Performed By: #### GLUSILVINO, CBC #### [address] [place] [place] [address] Agronomy Specialist: Richie Aranda (Bld) [#/Vol]316 10*3/sVRvyxyp290-312 [facility] HospitalComment on above:Performed By: #### GLUSILVINO, CBC #### [address] [place] [place] [address] Agronomy Specialist: BILL Aranda (Bld) [#/Vol]3.90 10*6/uLLow3.95-5.11[facility] HospitalComment on above:Performed By: #### GLUSC, CBC #### [address] [place] [place] [address] Agronomy Specialist: LANEY Aranda (Bld) [#/Vol]10.2 10*3/uLNormal3.5-11.3MGalion Community Hospital HospitalComment on above:Performed By: #### GLUSILVINO, CBC #### [address] [place] [place] [address] Agronomy Specialist: Yelena Greco MDGlucose Challenge Gestationalon 42-96-4676INJ ADMN GlucolaBon [facility] HospitalGlucose 1 Hr post 50 g glucose PO [Mass/Vol]184 mg/vYGrkh58 - 135 mg/dLBon [facility] HospitalInterpretation and review of laboratory resultsAbnormalBon [facility] HospitalBon [facility] Glucose Toya Scr 50gon 86-81-6277Ghfivmt [Mass/Vol]184 mg/xKCvtp31-131TnkweKindred Hospital LimaComment on above:Performed By: #### GLUSC, CBC #### [facility] [address] [place] [place] [address] Agronomy Specialist: Yelena Greco MDGlu Administered viaGlucolaNormalKindred Hospital LimaComment on above:Performed By: #### GLUSC, CBC #### [facility] [address] [place] [place] [address] Agronomy Specialist: Yelena Greco MDUS OB LESS THAN 14 WEEKS SINGLE OR FIRST GESTATION on 46-06-5806EFEYQOPRNXA: FIRST TRIMESTER OBSTETRIC ULTRASOUND 12/20/2024 TECHNIQUE: 1. [...] by: Noah Rivero MD 12/23/24 Final result [facility] HealthcareRadiology Study observation (narrative)NOMS HealthcareUS OB LESS THAN 14 WEEKS SINGLE OR FIRST GESTATIONOrdered By: Radiologist Radiology on 12-82-9413AZGX Healthcare Work Phone: US OB LESS THAN 14 WEEKS SINGLE OR FIRST GESTATION W DOPPLERon 02-49-6342ZA OB LESS THAN 14 WEEKS SINGLE OR [...] by: Noah Rivero MD 12/23/24 Final resultNormalMercy Fleming HospitalUrinalysis macro (dipstick) panel (U)on 76-78-6786Gbsmyqbro, UANegativeNegative - 4(70) +++ mg/dLNOMS HealthcareBlood, UAPositiveNegative - 50 Yunior/mcLNOMS HealthcareClarity, UAClearNOMS Healthcare Color, UAYellowNOMS HealthcareGlucose, UANegativeNegative - 2000(110) ++++ mg/dL N[facility]S HealthcareInterpretation and review of laboratory resultsAbnormalNOMS HealthcareKetones, UANegativeNegative - 160(16) ++++ mg/dLNOMS Healthcare Leukocytes, UANegativeNegative - 500+++ Trip/mcLNOMS HealthcareNitrite, UA NegativeNegative - PositiveNOMS HealthcarepH, UA75 - 9NOSD HealthcareProtein, UA NegativeNegative - 1999(20) ++++ mg/dLNOSD HealthcareSpec Grav, UA1.011 - 1.03 NOMS HealthcareUrobilinogen, UA1.00.2 - 12 mg/dLFirstHealth [facility] Hospital HCG ( test) Ql (U)on 32-83-2146Yngifchvwnqxbz and review of laboratory resultsAbnormalLakeland Regional HospitalPreg Test, UrPositiveNegativeNOSSM Health Care HealthcareUS OB TRANSVAGINALon 41-44-4075LW OB TRANSVAGINALEXAM: US OB TRANSVAGINAL HISTORY: Dating. [...] II, MD, PHD at 15-Nov-2024 09:44:32 AM [facility] TeleradiologyNormalNot AvailableComment on above:Order Comment: US OB TRANSVAGINAL No LMP recorded.Urinalysis macro (dipstick) panel (U)on 57-48-1519Knruamacz, UA NegativeNegative - 4(70) +++ mg/dLNOSD HealthcareBlood, UANegativeNegative - 50 Yunior/[facility] HealthcareClarity, UAClearNOSD HealthcareColor, UAYellowNOSD HealthcareGlucose, UANegativeNegative - 1999(110) ++++ mg/dLNOSD Healthcare Interpretation and review of laboratory resultsNormalUTAH STATE [facility] HealthcareKetones, UA NegativeNegative - 160(16) ++++ mg/dLUT[facility] STATE [facility]OSP[facility] HealthcareLeukocytes, UANegative Negative - 500+++ Trip/[facility] HealthcareNitrite, UANegativeNegative - Positive NOMS HealthcarepH, UA6.55 - 9NOSD HealthcareProtein, UANegativeNegative - 2000(20) ++++ mg/dLUTAH STATE HOSPITAL HealthcareSpec Grav, UA1.0051 - 1.03NOSD Healthcare Urobilinogen, UA0.20.2 - 12 mg/dLNOSSM Health Care HealthcareIGP,APTIMA HPV,AGE GDLNon 21-64-[address]STY [address] ACOG TESTINGNote.[facility] HealthcareComment on above:TESTS RESULT FLAG UNITS REF RANGE LAB Clinician Provided Cytology Information Source.............Cervix;Endocervix No. of containers..01 ThinPrep Vial Age Algo ACOG Addie... FLAG LEGEND: L-Low Normal,H-High Normal,LL-Alert Low,HH-Alert High <-Panic Low,>-Panic High,A-Abnormal,AA-Critical Abnormal Performed at: 01 =G [facility] [address] [facility] [place] [address] Anastasiya Moses MD, IGP, RFX APTIMA HPV ASCUNote.NOMS HealthcareComment on above:TESTS RESULT FLAG UNITS REF RANGE LAB DIAGNOSIS: 02 NEGATIVE FOR INTRAEPITHELIAL LESION OR MALIGNANCY. Specimen adequacy: 02 Satisfactory for evaluation. Endocervical and/or squamous metaplastic cells (endocervical component) are present. Performed by: 02 Maico Galaviz, Form Tamping Machine Operator ([facility]) . 02 Note: Note 02 The [...] High,A-Abnormal,AA-Critical Abnormal Performed at: 02 WB [facility] [address] [place] [address] Anastasiya Moses MD, Performed at: =G - [facility] [address] [id number] Agronomy Specialist: Anastasiya Moses MD, Phone: [phone] Performed at: WB - [facility] [address] [id number] Agronomy Specialist: Anastasiya Moses MD, Phone: [phone] BRUSH-SPATULA CERVIX ENDOCERVIX CLINISYNCNOSD HealthcareComp Metabolic Profon 85-73-1095Mjidqij [Mass/Vol]4.6 g/dLNormal3.5-5.2[facility] HospitalComment on above:Performed By: #### CP #### [address] [place], [place] [address] Agronomy Specialist: Yelena Greco MDAlbumin/Glob Ratio1.6Whjpkc7.0-2.5[facility]red Hospital LimaComment on above:Performed By: #### CP #### [address] [place] [address] Agronomy Specialist: Giselle Aranda Phos71 U/MVgepts48-657PpguyKindred Hospital LimaComment on above:Performed By: #### CP #### [address] [place] [address] Agronomy Specialist: Yelena Greco MDALT [Catalytic activity/Vol]41 U/EGslw02-42Jisgz [facility]iffin HospitalComment on above:Performed By: #### CP #### [facility] [address] [place] [address] [place] [address] Agronomy Specialist: Lindsay Aranda gap [Moles/Vol]10 mmol/LNormal9-16Kindred Hospital LimaComment on above:Performed By: #### CP #### [address] [place], [place] [id number] Agronomy Specialist: Yelena Sturtz, MDAST [Catalytic activity/Vol]34 U/STwrcit80-21Dlxox Tiffin HospitalComment on above:Performed By: #### CP #### [address] [place] [place] [address] Agronomy Specialist: Yelena Greco MDBilirubin [Mass/Vol]0.4 mg/dLNormal0.00-1.20[facility] HospitalComment on above:Performed By: #### CP #### [address] [place] [place] [address] Agronomy Specialist: Yelena Greco MDBUN/CRE Cthih90Frdi7-25JgoupKindred Hospital Lima Comment on above:Performed By: #### CP #### [address] [place] [place] [address] Agronomy Specialist: NATALIO Arandaalcium [Mass/Vol]9.4 mg/dLNormal8.6-10.4[facility] HospitalComment on above:Performed By: #### CP #### [address] [place] [place] [address] Agronomy Specialist: NATALIO Arandahloride [Moles/Vol]103 mmol/YBgfdwp41-052Olnbf [facility]in HospitalComment on above:Performed By: #### CP #### [address] [place] [place] [address] Agronomy Specialist: Yelena Greco MDCO2 [Moles/Vol]25 mmol/CKswgeo52-07Emosz [facility]in HospitalComment on above:Performed By: #### CP #### [address] [place] [place] [address] Agronomy Specialist: NATALIO Arandareatinine [Mass/Vol]0.6 mg/dLNormal0.50-0.90MerHolmes County Joel [facility] HospitalComment on above:Performed By: #### CP #### [address] [place] [address] [place] [address] Agronomy Specialist: Yelena Greco MDGFR/1.73 sq M.predicted among non-blacks MDRD (S/P/Bld) [Vol rate/Area]mL/min/{1.73_m2}Normal>60[facility] HospitalComment on above:Result Comment: These results are [...] renal tubular secretion.Performed By: #### CP #### [address] [place] [place] [address] Agronomy Specialist: Yelena Greco MDGlucose [Mass/Vol]83 mg/zQFaqotf94-94Kljbx [place] HospitalComment on above:Performed By: #### CP #### [address] [place] [place] [address] Agronomy Specialist: ROLANDO Arandaotassium [Moles/Vol]4.6 mmol/LNormal3.7-5.3[facility] [place] HospitalComment on above:Performed By: #### CP #### [address] [place] [address] [place] [address] Agronomy Specialist: Yelena Greco MDProtein [Mass/Vol]7.8 g/dLNormal6.6-8.7[facility] HospitalComment on above:Performed By: #### CP #### [address] [place] [address] [place] [address] Agronomy Specialist: Yelena Greco MDSodium [Moles/Vol]138 mmol/RYrzpcc157-153Uspse [facility]in HospitalComment on above:Performed By: #### CP #### [address] [place] [place] [address] Agronomy Specialist: Yelena Greco MDUrea nitrogen [Mass/Vol]13 mg/dLNormal6-20Kindred Hospital LimaComment on above:Performed By: #### CP #### [facility] [address] [place] [place] [address] Agronomy Specialist: NATALIO Arandaomprehensive Metabolic Panelon [id number] [Mass/Vol]4.6 g/dL3.5 - 5.2 g/dLBon [facility] HospitalAlbumin/Globulin [Mass ratio]1.5 {ratio}1.0 - 2.5Bon [facility] HospitalALP [Catalytic activity/Vol]71 U/L35 - 104 U/LBon [facility] HospitalALT [Catalytic activity/Vol]41 U/LHigh10 - 35 U/LBon [facility] HospitalAnion gap [Moles/Vol]10 mmol/L9 - 16 mmol/LBon [facility] HospitalAST [Catalytic activity/Vol]34 U/L10 - 35 U/LBon [facility] HospitalBilirubin [Mass/Vol]0.4 mg/dL0.00 - 1.20 mg/dLBon [facility] HospitalCalcium [Mass/Vol]9.4 mg/dL8.6 - 10.4 mg/dLBon [facility] Chloride [Moles/Vol]103 mmol/L98 - 107 mmol/LBon [facility] HospitalCO2 [Moles/Vol]25 mmol/L20 - 31 mmol/LBon [facility] HospitalCreatinine [Mass/Vol] 0.6 mg/dL0.50 - 0.90 mg/dLBon [facility] HospitalEst, Glom Filt Rate- PINFBon [facility] HospitalComment on above: These results are not [...] secretion. Glucose [Mass/Vol]83 mg/dL74 - 99 mg/dLBon [facility] HospitalInterpretation and review of laboratory resultsAbnormRiverside Walter Reed HospitalPotassium [Moles/Vol]4.6 mmol/L3.7 - 5.3 mmol/LBon [facility] HospitalProtein [Mass/Vol] 7.8 g/dL6.6 - 8.7 g/dLBon [facility] HospitalSodium [Moles/Vol]138 mmol/L136 - 145 mmol/LBon [facility] Bern[employer] FilmsUrea nitrogen [Mass/Vol]13 mg/dL6 - 20 mg/dL [facility] Bernal FilmsUrea nitrogen/Creatinine [Mass ratio]22 mg/mgHigh9 - 20 [facility] HospitalLipid Panelon 05-20-2024 Cholesterol [Mass/Vol]152 mg/dL0 - 199 mg/dLBon [facility] HospitalComment on above: Cholesterol Guidelines: <200 Desirable 200-240 Borderline >240 Undesirable Cholesterol in HDL [Mass/Vol]33 mg/dLLow40 - PINF mg/dLBClinch Valley Medical Center [employer] Comment on above: HDL Guidelines: <40 Undesirable 40-59 Borderline >59 Desirable Cholesterol in LDL [Mass/Vol]88 mg/dL0 - 100 mg/dLBon [facility]ysLearnShark Comment on above: LDL Guidelines: <100 Desirable 100-129 Near to/above Desirable 130-159 Borderline >159 Undesirable Direct (measured) LDL and calculated LDL are not interchangeable tests. Cholesterol in VLDL [Mass/Vol]31 mg/dLBon [facility] [employer] Cholesterol.total/Cholesterol in HDL [Mass ratio]5.0 {ratio}[facility] Bernal FilmsInterpretation and review of laboratory resultsAbnormRiverside Walter Reed HospitalTriglyceride [Mass/Vol]156 mg/dLHighNINF - 150 mg/dLBon [facility] HospitalComment on above: Triglyceride Guidelines: <150 Desirable 150-199 Borderline 200-499 High >499 Very high Based on AHA Guidelines for fasting triglyceride, April 2012. [facility] Applied Predict[employer] TechnologiesLipid Profileon [id number] [Mass/Vol]152 mg/dLNormal0-199Kindred Hospital LimaComment on above:Result Comment: Cholesterol Guidelines: <200 Desirable 200-240 Borderline >240 UndesirablePerformed By: #### LIPR #### [facility] [address] [place] [address] Agronomy Specialist: NATALIO Tavarezholesterol in HDL [Mass/Vol]33 mg/dLLow>40[facility] Hospitalcy [facility] ConnecticutComment on above:Result Comment: HDL Guidelines: <40 Undesirable 40-59 Borderline >59 DesirablePerformed By: #### LIPR #### [facility] [address] [place] [address] Agronomy Specialist: NATALIO Tavarezholesterol in LDL [Mass/Vol]88 mg/dLNormal0-100 [facility] Hospital LimaComcovenant medical center on above:Result Comment: LDL Guidelines: <100 Desirable 100-129 Near to/above Desirable 130-159 Borderline >159 Undesirable Direct (measured) LDL and calculated LDL are not interchangeable tests.Performed By: #### LIPR #### [facility] [address] [place] [address] Agronomy Specialist: NATALIO Tavarezholesterol in VLDL [Mass/Vol]31 mg/dLNormal [facility]red Hospital LimaComment on above:Performed By: #### LIPR #### [facility] [address] [place] [address] Agronomy Specialist: Trinidad Tavarez.total/Cholesterol in HDL [Mass ratio]5.0 {ratio}NormalKindred Hospital LimaComcovenant medical center on above:Performed By: #### LIPR #### [facility] HospitalBT[facility] [address] [place] [address] Agronomy Specialist: Osvaldo Santamaria MDTriglyceride [Mass/Vol]156 mg/dLHigh<150[facility] Hospitalcy [facility] ConnecticutComcovenant medical center on above:Result Comment: Triglyceride Guidelines: <150 Desirable 150-199 Borderline 200-499 High >499 Very high Based on AHA Guidelines for fasting triglyceride, April 2012.Performed By: #### LIPR #### [facility] [address] [place] [address] Agronomy Specialist: Osvaldo Santamaria MDUS GALLBLADDER RUQon [id number] GALLBLADDER RUQEXAMINATION: RIGHT UPPER QUADRANT ULTRASOUND 03/06/2024 9:58 am COMPARISON: None. HISTORY: ORDERING SYSTEM PROVIDED HISTORY: Elevated liver enzymes TECHNOLOGIST PROVIDED HISTORY: This procedure can be scheduled via [employer]. elevated liver enzymes, fam hx gallbladder disease. [...] Signed by: Hernandez Stewart MD 03/06/24 Final resultNormalKettering Health Troy [id number] distribution width (RBC) [Ratio]12.4 %Ceosla07.8-14.4Kindred Hospital LimaComment on above: Performed By: #### FEBC #### [address] [place] [address] Agronomy Specialist: Osvaldo Santamaria MD #### CBC, CP #### [address] [place] [place] [address] Agronomy Specialist: Yelena Greco MDHematocrit (Bld) [Volume fraction]40.2 %Normal 36.3-47.1MToledo HospitalComment on above:Performed By: #### FEBC #### [facility] [address] [place] [address] Agronomy Specialist: Osvaldo Santamaria MD #### CBC, CP #### [address] [place] [address] Agronomy Specialist: Yelena Greco MDHemoglobin (Bld) [Mass/Vol]13.5 g/dLNormal 11.9-15.1MToledo HospitalComment on above:Performed By: #### FEBC #### [address] [address] Agronomy Specialist: Osvaldo Santamaria MD #### CBC, CP #### [address] [place] [phone] Agronomy Specialist: YULY ArandaCH (RBC) [Entitic mass]29.8 maKqdwby85.2-33.5 [facility]red Hospital LimaComment on above:Performed By: #### FEBC #### [address] [address] Agronomy Specialist: Osvaldo Santamaria MD #### CBC, CP #### [address] [place] [address]683 Agronomy Specialist: TY ArandaC (RBC) [Mass/Vol]33.6 g/xBExujha37.4-34.8Kindred Hospital LimaComment on above:Performed By: #### FEBC #### [address] [address] Agronomy Specialist: Osvaldo Santamaria MD #### CBC, CP #### [address] [place] [address] Agronomy Specialist: RYANN Aranda (RBC) [Entitic vol]88.7 xWIocrsx45.6-102.9 [facility] HospitalComment on above:Performed By: #### FEBC #### [address] [address] Agronomy Specialist: Osvaldo Santamaria MD #### CBC, CP #### [address] [place] [address]683 Agronomy Specialist: Yelena Greco MDNRBC Automated0.0 per 100 WBCNormal0.0Kindred Hospital LimaComment on above:Performed By: #### FEBC #### [facility] [address] [place] [address] Agronomy Specialist: Osvaldo Santamaria MD #### CBC, CP #### [address] [place] [address] Agronomy Specialist: Sobeida Aranda mean volume (Bld) [Entitic vol]8.5 fL Normal8.1-13.5Kindred Hospital LimaComment on above:Performed By: #### FEBC #### [facility] [address] [place] [address] Agronomy Specialist: Osvaldo Santamaria MD #### CBC, CP #### [address] [place] [phone] Agronomy Specialist: Richie Aranda (Bld) [#/Vol]309 10*3/bYXrhahk690-690 [facility] Hospital LimaComment on above:Performed By: #### FEBC #### [facility] [address] [place] [address] Agronomy Specialist: Osvaldo Santamaria MD #### CBC, CP #### [address] [place], [place] [address]83 Agronomy Specialist: BILL Aranda (Bld) [#/Vol]4.53 10*6/uLNormal3.95-5.11[facility]red Hospital LimaComment on above:Performed By: #### FEBC #### [facility] [address] [place] [address] Agronomy Specialist: Osvaldo Santamaria MD #### CBC, CP #### [address] [place], [place] [address]83 Agronomy Specialist: LANEY Aranda (Bld) [#/Vol]6.5 10*3/uLNormal3.5-11.3MGalion Community Hospital HospitalComment on above:Performed By: #### FEBC #### [address] [address] Agronomy Specialist: Osvaldo Santamaria MD #### CBC, CP #### [address] [place], [place] [address]83 Agronomy Specialist: NATALIO Arandast. mark's hospital Metabolic Profon 03-67-7506Yaazbqy [Mass/Vol] 4.5 g/dLNormal3.5-5.2Msouthview medical centery Fleming HospitalComment on above:Performed By: #### FEHU #### [address] [address] Agronomy Specialist: Osvaldo Santamaria MD #### CBC, CP #### [address] [place] [address]683 Agronomy Specialist: Yelena Greco MDAlbumin/Glob Ratio1.4Ezqpwr0.0-2.5[facility]red Hospital LimaComment on above:Performed By: #### SAKSHI #### [address] [address] Agronomy Specialist: Osvaldo Santamaria MD #### JERAMIE, CP #### [address] [place], [facility]83 Agronomy Specialist: Mechelle Arandaline Phos74 U/KMdoznw22-495YleljKindred Hospital LimaComment on above:Performed By: #### FEBC #### [address] [address] Agronomy Specialist: Osvaldo Santamaria MD #### CBC, CP #### [address] [place], [place] [address] Agronomy Specialist: Yelena Greco MDALT [Catalytic activity/Vol]61 U/LHigh5-33[facility]red Hospital LimaComment on above:Performed By: #### FEBC #### [address] [address] Agronomy Specialist: Osvaldo Santamaria MD #### CBC, CP #### [address] [place] [place] [address] Agronomy Specialist: Lindsay Aranda gap [Moles/Vol]8 mmol/LLow9-17[facility]red Hospital LimaComment on above:Performed By: #### FEBC #### [address] [address] Agronomy Specialist: Osvaldo Santamaria MD #### CBC, CP #### [address] [place], [place] [address]194183 Agronomy Specialist: Yelena Greco MDAST [Catalytic activity/Vol]43 U/LHigh<32[facility]red Hospital LimaComment on above:Performed By: #### FEBC #### [address] [address] Agronomy Specialist: Osvaldo Santamaria MD #### CBC, CP #### [address] [place] [place] [address] Agronomy Specialist: Yelena Greco MDBilirubin [Mass/Vol]0.2 mg/dLLow0.3-1.2Msouthview medical centery [facility] Hospital Of Central ConnecticutComment on above:Performed By: #### FEBC #### [address] [address] Agronomy Specialist: Osvaldo Santamaria MD #### CBC, CP #### [address] [place], [place] [address]83 Agronomy Specialist: Yelena Greco MDBUN/CRE Zbtqt79Zhfpwq7-85Hfagw [facility] Comment on above:Performed By: #### FEBC #### [address] [address] Agronomy Specialist: Osvaldo Santamaria MD #### CBC, CP #### [address] [place] [place] [address] Agronomy Specialist: NATALIO Arandaalcium [Mass/Vol]9.4 mg/dLNormal8.6-10.4[facility] HospitalComment on above:Performed By: #### FEBC #### [address] [address] Agronomy Specialist: Osvaldo Santamaria MD #### CBC, CP #### [address] [place] [phone] Agronomy Specialist: Yelena Greco MDChloride [Moles/Vol]100 mmol/OChfjqz50-197Dlaup Tiffin HospitalComment on above:Performed By: #### FEBC #### [address] [address] Agronomy Specialist: Osvaldo Santamaria MD #### CBC, CP #### [address] [place] [phone] Agronomy Specialist: Yelena Greco MDCO2 [Moles/Vol]28 mmol/JYyrqzk45-00IvycmKindred Hospital LimaComment on above:Performed By: #### FEBC #### [address] [address] Agronomy Specialist: Osvaldo Santamaria MD #### CBC, CP #### [address] [place], [place] 9725483 Agronomy Specialist: NATALIO Arandareatinine [Mass/Vol]0.6 mg/dLNormal0.5-0.9[facility] HospitalComment on above:Performed By: #### FEBC #### [address] [address] Agronomy Specialist: Osvaldo Santamaria MD #### CBC, CP #### [address] [place] [place] [address] Agronomy Specialist: Yelena Greco MDGFR/1.73 sq M.predicted among non-blacks MDRD (S/P/Bld) [Vol rate/Area]mL/min/{1.73_m2}Normal>60MerNorwalk HospitalComment on above:Result Comment: These results are [...] renal tubular secretion.Performed By: #### FEBC #### [address] [address] Agronomy Specialist: Osvaldo Santamaria MD #### JERAMIE, CP #### [address] [place] [place] [address] Agronomy Specialist: Yelena Greco MDGlucose [Mass/Vol]91 mg/rAOsnffq51-13TtqehToledo HospitalComment on above:Performed By: #### FEBC #### [address] [address] Agronomy Specialist: Osvaldo Santamaria MD #### JERAMIE, CP #### [address] [place], [place] 7120783 Agronomy Specialist: ROLANDO Arandaotassium [Moles/Vol]4.2 mmol/LNormal3.7-5.3MToledo HospitalComment on above:Performed By: #### FEBC #### [address] [address] Agronomy Specialist: Osvaldo Santamaria MD #### JERMAIE, CP #### [address] [place] [address] Agronomy Specialist: ROLANDO Arandarotein [Mass/Vol]7.6 g/dLNormal6.4-8.3[facility] HospitalComment on above:Performed By: #### FEBC #### [address] [address] Agronomy Specialist: Osvaldo Santamaria MD #### CBC, CP #### [address] [place] [phone] Agronomy Specialist: KARLIE Arandaodium [Moles/Vol]136 mmol/HZavcez866-046Kdwtf [place] HospitalComment on above:Performed By: #### FEBC #### [address] [address] Agronomy Specialist: Osvaldo Santamaria MD #### CBC, CP #### [address] [place] [phone] ( Agronomy Specialist: Yelena Greco MDUrea nitrogen [Mass/Vol]12 mg/dLNormal6-20[facility] HospitalComment on above:Performed By: #### FEBC #### [address] [address] Agronomy Specialist: Osvaldo Santamaria MD #### CBC, CP #### [address] [place] [address]649 ( Agronomy Specialist: Una Aranda Binding Cap.on 02-16-2024% Fe Lgfttplxka65 % Oxlliz34-05Xossd [facility] ConnecticutComment on above:Performed By: #### FEBC #### [address] [address] Agronomy Specialist: Osvaldo Santamaria MD #### CBC, CP #### [address] [place] [phone] ( Agronomy Specialist: Yelena Sturtz, MDIron [Mass/Vol]92 ug/gFDkwbxe92-386NoplfKindred Hospital LimaComment on above:Performed By: #### FEBC #### [address] [address] Agronomy Specialist: Osvaldo Santamaria MD #### CBC, CP #### [address] [place], [place] [address]83 Agronomy Specialist: Yelena Greco MDTotal Fe Binding Bue701 ug/pYZfmtto591-540HfzuaKindred Hospital LimaComment on above:Performed By: #### FEBC #### [address] [address] Agronomy Specialist: Osvaldo Santamaria MD #### CBC, CP #### [address] [place], [place] 8[address]83 Agronomy Specialist: Yelena Greco MDUnbound Fe Bind Qkv208 ug/zNKcuuzw714-815QlzkwKindred Hospital LimaComment on above:Performed By: #### FEBC #### [address] [address] Agronomy Specialist: Osvaldo Santamaria MD #### CBC, CP #### [address] [place], [place] 469[address]83 Agronomy Specialist: Yelena Greco MDLipid Profileon 27-35-7639Xmhgdrhgldx [Mass/Vol] 245 mg/dLHigh0-199Kindred Hospital LimaComment on above:Result Comment: Cholesterol Guidelines: <200 Desirable 200-240 Borderline >240 UndesirablePerformed By: #### LIPR #### [address] [address] Agronomy Specialist: NATALIO Tavarezholesterol in HDL [Mass/Vol]34 mg/dLLow>40Kindred Hospital LimaComment on above:Result Comment: HDL Guidelines: <40 Undesirable 40-59 Borderline >59 DesirablePerformed By: #### LIPR #### [facility] [place] [address] Agronomy Specialist: NATALIO Tavarezholesterol in LDL [Mass/Vol]159 mg/dLHigh0-100 [facility] Hospital LimaComment on above:Result Comment: LDL Guidelines: <100 Desirable 100-129 Near to/above Desirable 130-159 Borderline >159 Undesirable Direct (measured) LDL and calculated LDL are not interchangeable tests.Performed By: #### LIPR #### [facility] [address] [place] [address] Agronomy Specialist: NATALIO Tavarezholesterol in VLDL [Mass/Vol]52 mg/dLNormal [facility] Hospital LimaComment on above:Performed By: #### LIPR #### [facility] [address] [place] [address] Agronomy Specialist: Trinidad Tavarez.total/Cholesterol in HDL [Mass ratio]7.0 {ratio}NormalKindred Hospital LimaComment on above:Performed By: #### LIPR #### [facility] [address] [place] [address] Agronomy Specialist: Osvaldo Santamaria MDTriglyceride [Mass/Vol]259 mg/dLHigh<150Kindred Hospital LimaComment on above:Result Comment: Triglyceride Guidelines: <150 Desirable 150-199 Borderline 200-499 High >499 Very high Based on AHA Guidelines for fasting triglyceride, April 2012.Performed By: #### LIPR #### [facility] [address] [place] [address] Agronomy Specialist: Osvaldo Santamaria MDOffice Visiton [id number]-up visit [id number] Vinny Downey 2000 F Date Provider Department Center 07/11/2023 RAJENDRA GUNN [facility] Family History Problem Relation Age of Onset Anemia Mother Supraventricular tachycardia Father Hyperlipidemia Father Diabetes Sister Family Status - Relation Status Age at Mother Father Sister Level of Service:78172 PA OFFICE/OUTPATIENT NEW MODERATE MDM 45 MINUTESNormal [facility] CenterOffice Visiton [id number]-up visit [id number] Vinny Downey 2000 F Date Provider Department Center 03/20/2023 CucoJames-[facility]RA[facility]AMP[facility] Family History Problem Relation Age of Onset Anemia Mother Supraventricular tachycardia Father Hyperlipidemia Father Diabetes Sister Family Status - Relation Status Age at Mother Father Sister Level of Service:23937 PA OFFICE/OUTPATIENT NEW LOW MDM 30-44 [facility]US PREG BIOPHY W NON STRESSon [id number] PREG BIOPHY W NON STRESSEXAMINATION: US PREG [...] Electronically authenticated by: YELENA CARLOS Date: 2022-12-20 07:03[facility] PREG PLACENTAon [id number] PREG PLACENTAEXAMINATION: US PREG PLACENTA HISTORY: Left [...] authenticated by: LUIS ALFREDO GRANT Date: 2022-12-12 14:56[facility] P[facility] BIOPHY W NON STRESSon [id number] PREG BIOPHY W NON STRESSEXAMINATION: US PREG [...] authenticated by: LUIS ALFREDO GRANT Date: 2022-12-11 04:08[facility] PREG GROWTHon [id number] PREG GROWTHEXAMINATION: US PREG GROWTH HISTORY: High [...] authenticated by: LUIS ALFREDO GRANT Date: 2022-12-11 04:06[facility] HospitalGTT 3 HR PREGon 89-78-6024Tdygrmb [Mass/Vol]98 mg/dLNormal 74-106[facility] HospitalComment on above:Performed By: #### GTT3P #### [facility] [address] [place] [address] Dr. Emilee SpringerGlucose [Mass/Vol]170 mg/dLKeenan Private HospitalComment on above:Performed By: #### GTT3P #### [facility] [address] [place] [address] [address] Emilee SpringerGlucose [Mass/Vol]201 mg/dLNoUniversity Hospitals Beachwood Medical CenterComment on above:Performed By: #### GTT3P #### [facility] [address] [place] [address] [address] Emilee SpringerGlucose [Mass/Vol]115 mg/dLNoUniversity Hospitals Beachwood Medical CenterComment on above:Performed By: #### GTT3P #### [facility] [address] [place] [address] [address] Emilee Mcconnell PREG INCOMPLETE ANATOMYon [id number] PREG INCOMPLETE ANATOMY EXAM: US PREG INCOMPLETE ANATOMY HISTORY: screening COMPARISON: 09/10/2022 TECHNIQUE: Transabdominal FINDINGS: position: Transverse, head to the maternal right Heart rate: 157 bpm Normal observed anatomy: Nose/lips, four-chamber heart, left ventricular outflow tract, right ventricular outflow tract, spine IMPRESSION: Normal observed anatomy Electronically authenticated by: YELENA CARLOS Date: 2022-10-16 08:44[facility] AUTO DIFFon [id number] #0.0 103/ulNormal0.0-0.1The [facility] HospitalComment on above:Performed By: #### CBC #### [facility] [address] [place] [address] [address] Emilee SpringerBasophils/100 WBC (Bld)0.2 %Normal0.2-2.0The [facility] Comment on above:Performed By: #### CBC #### [facility] [address] [place] [address] [address] Emilee Weldon #0.1 103/ulNormal0.0-0.7The [facility] HospitalComment on above: Performed By: #### CBC #### [facility] [address] [place] [address] [address] Emilee Cintronosinophils/100 WBC (Bld)0.8 %Critically low0.9-7.0The [facility] HospitalComment on above:Performed By: #### CBC #### [facility] [address] [address] [address] Emilee Cintronrythrocyte distribution width (RBC) [Ratio]12.5 %Ihixod40.0-15.0 The Heri HospitalComment on above:Performed By: #### CBC #### [facility] [address] [place] [address] Dr. Emilee SpringerHematocrit (Bld) [Volume fraction]29.8 %Critically low36.0-48.0 The [facility] HospitalComment on above:Performed By: #### CBC #### [facility] [address] [place] [address] Dr. Emilee SpringerHemoglobin (Bld) [Mass/Vol]10.0 g/dLCritically low12.0-16.0The [facility] HospitalComment on above:Performed By: #### CBC #### [facility] [address] [place] [address] Dr. Emilee Van #0.05 10e3/ulCritically high0.00-0.03The [facility] Comment on above:Performed By: #### CBC #### [facility] [address] [place] [address] Dr. Emilee Van %0.5 %Normal0.0-0.5The [facility] HospitalComment on above: Performed By: #### CBC #### [facility] [address] [place] [address] Dr. Emilee Renae #1.6 103/ulNormal1.2-3.8The [facility] HospitalComment on above:Performed By: #### CBC #### [facility] [address] [place] [address] Dr. Emilee Espinozamphocytes/100 WBC (Bld)15.3 %Critically low20.5-60.0Wilson Memorial HospitalComment on above:Performed By: #### CBC #### [facility] [address] [place] [address] Dr. Emilee PenningtonUAL DIFF REQNONormalThe [facility] HospitalComment on above: Performed By: #### CBC #### [facility] [address] [place] [address] Dr. Emilee Hannah (RBC) [Entitic mass]30.2 etVlkfkg12.7-34.0The [facility] HospitalComment on above:Performed By: #### CBC #### [facility] [address] [place] [address] Dr. Emilee Guevara (RBC) [Mass/Vol]33.6 g/gEZqnubd59.9-35.2The [facility] HospitalComment on above:Performed By: #### CBC #### [facility] [address] [place] [address] Dr. Emilee Guevara (RBC) [Entitic vol]90.0 nXYpzunz50.0-99.0The [facility] HospitalComment on above:Performed By: #### CBC #### [facility] [address] [place] [address] Dr. Emilee Banegas #0.6 103/ulNormal0.3-0.8The [facility] HospitalComment on above:Performed By: #### CBC #### [facility] [address] [place] [address] Dr. Emilee Hightowerocytes/100 WBC (Bld)5.8 %Normal1.7-12.0[facility] Comment on above:Performed By: #### CBC #### [facility] [address] [place] [address] Dr. Emilee Fernandez #8.2 103/ulCritically high1.4-6.5The [facility] Comment on above:Performed By: #### CBC #### [facility] [address] [place] [address] Dr. Emilee Acostaophils/100 WBC (Bld)77.4 %Critically high43.0-75.0The [facility] HospitalComment on above:Performed By: #### CBC #### [facility] [address] [place] [address] Dr. Emilee Barth mean volume (Bld) [Entitic vol]8.5 fLCritically low 9.5-13.5The [facility] HospitalComment on above:Performed By: #### CBC #### [facility] [address] [place] [address] Dr. Emilee SpringerPLT347 103/mqUmlowj937-546Ihz [facility] HospitalComment on above: Performed By: #### CBC #### [facility] [address] [place] [address] Dr. Emilee SpringerRBC3.31 106/ulCritically low4.20-5.40The [facility] HospitalComment on above:Performed By: #### CBC #### [facility] [address] [place] [address] Dr. Emilee SpringerWBC10.6 103/ulNormal4.0-11.0The [facility] HospitalComment on above:Performed By: #### CBC #### [facility] [address] [place] [address] Dr. Emilee SpringerGLUCOSE - 1HRon 27-57-4017Srramsl [Mass/Vol]176 mg/dLCritically ltvd22-287Kbk [facility] HospitalComment on above:Performed By: #### GLU1HR #### [facility] [address] [place] [address] Dr. Emilee SpringerCHLAMYDIA/GONOCOCCUS ANISA (SWAB/URINE/PAPon 36-55-6037Bsmcbgwbs trachomatis, NAANegativeNormalNegativeThe [facility] HospitalComment on above: Performed By: #### CBC #### [facility] [address] [place] [address] Dr. Emilee SpringerNeisseria gonorrhoeae, NAANegativeNormalNegativeThe [facility] HospitalComment on above:Performed By: #### CBC #### [facility] [address] [place] [address] Dr. Emilee SpringerVAGINITIS/VAGINOSIS DNA PROBEon 76-54-5989Nectvlp speciesNegative NormalNegativeThe [facility] HospitalComment on above:Performed By: #### CBC #### [facility] [address] [place] [address] Dr. Emilee Wickdnerella vaginalisNegativeNormalNegativeThe [facility] on above:Performed By: #### CBC #### [facility] [address] [address] [address] Emilee SpringerTrichomonas vaginalisNegativeNormalNegativeThe [facility] Comment on above:Performed By: #### CBC #### [facility] [address] [address] [address] Emilee Mcconnell PREG ANATOMY SINGLEon [id number] PREG ANATOMY SINGLE EXAMINATION: US PREG ANATOMY [...] authenticated by: LUIS ALFREDO GRANT Date: 2022-09-13 16:57[facility] Private HospitalAFP MATERNAL FOR SPINA BIFIDAon 44-05-8461UBG MoM0.42[facility] Private HospitalComment on above:Performed By: #### AFPMAT #### [facility] [address] [address] [address] Emilee Yoder Value16.7 ng/mLNSelect Medical OhioHealth Rehabilitation HospitalComment on above: Performed By: #### AFPMAT #### [facility] [address] [address] [address] Emilee Yoder, Serum for Spina BifidaReportKeenan Private Hospital Comment on above:Performed By: #### AFPMAT #### [facility] [address] [address] [address] Emilee SpringerSt. Louis Children'S HospitalmentHighland District HospitalComcovenant medical center on above:Result Comment: Pam Machado, Ph.D., [facility] Director . References: Available Upon Request. . Multiples Of Median Cutoffs For AFP Elevations Berkowitz 2.5 Black 2.8 IDD 2.0 Twins 4.5 Abbreviation Definitions IDD - Insulin Dep Diabetes OSBR - Open Spina Bifida Risk . For further inquiries contact [employer] at [phone]. . This test was developed and its performance characteristics determined by [employer]. It has not been cleared or approved by the Food and Drug Administration.Performed By: #### AFPMAT #### [facility] [address] [place] [address] Dr. Emilee Barrow Age Collection Date18.6 weeksKeenan Private Hospital Comment on above:Performed By: #### AFPMAT #### [facility] [address] [place], [place] [id number] Dr. Emilee Vargas, Age Based onEFirelands Regional Medical Center South CampusComcovenant medical center on above:Result Comment: 01/26/2023 Recalculations are not recommended when gestational dating by LMP and ultrasound are within 10 days.Performed By: #### AFPMAT #### [facility] [address] [address] [address] Emilee SpringerInsulin Dep DiabetesHighland District HospitalComcovenant medical center on above:Result Comment: Not provided. .Performed By: #### AFPMAT #### [facility] [address] [address] [address] Emilee SpringerInterpretationCoshocton Regional Medical Center on above: Result Comment: Interpretation: Screen Negative [...] Customer Services to discuss available options. The [employer] recommends amniocentesis be offered to women age 35 and older.Performed By: #### AFPMAT #### [facility] [address] [place] [address] Dr. Emilee SpringerMaternakrista Age at EDD24.3 yrParkview Health Bryan Hospital on above:Performed By: #### AFPMAT #### [facility] [address] [place] [address] Dr. Emilee Dialltiplfrederick GestationHighland District HospitalComcovenant medical center on above:Result Comment: Not provided. .Performed By: #### AFPMAT #### [facility] [address] [place] [address] Dr. Emilee SpringerOSBR Risk 1 [id number] Health Bryan Hospital on above: Performed By: #### AFPMAT #### [facility] [address] [place] [address] Dr. Emilee Galo.NormalWilson Memorial HospitalComcovenant medical center on above:Performed By: #### AFPMAT #### [facility] [address] [place] [address] Dr. Emilee SosaCoshocton Regional Medical Center on above:Result Comment: Not provided. .Performed By: #### AFPMAT #### [facility] [address] [place] [address] Dr. Emilee Arvizu Results:NegativeParkview Health Bryan Hospital on above: Performed By: #### AFPMAT #### [facility] [address] [place] [address] Dr. Emilee Salcedo antibody, IgGon 37-56-7262Zivlvoz virus IgG Ql (S)314.5 IU/mLBON AKRON CHILDREN'S HOSPITALComcovenant medical center on above: REFERENCE RANGE: <5.0 NON-REACTIVE (non-immune) 5.0 TO 9.9 EQUIVOCAL >=10.0 REACTIVE (immune) [facility]ILDREN'S HOSPITALHEP B SURFACE ANTIGEN SCREENon 23-75-3031JRqEw Screen NegativeNormalNegativeThe [facility] on above:Performed By: #### HBSANS #### [facility] [address] [place] [address] Dr. Emilee IsraelPATITIS C VIRUS AB W/ REFLEX QUANTon 14-78-1792ZOQ AB<0.1Normal 0.0-0.9The [facility] on above:Performed By: #### HCVPCRR #### [facility] [address] [place] [address] Dr. Emilee SpringerInterpretation:CommentNormalThe [facility] on above:Result Comment: Negative Not infected with HCV, unless recent infection is suspected or other evidence exists to indicate HCV infection.Performed By: #### HCVPCRR #### [facility] [address] [place] [address] Dr. Emilee Thornton 1 AND 2 WITH REFLEXon 32-88-4389JNB Screen 4th Generation wRfxNon-ReactiveNormalNon ReactiveThe [facility] on above:Result Comment: HIV Negative HIV-1/HIV-2 antibodies and HIV-1 p24 antigen were NOT detected. There is no laboratory evidence of HIV infection.Performed By: #### CBC #### [facility] [address] [place] [address] Dr. Emilee SpringerRPR QUANTon 24-94-6795Iaqpm Plasma Reagin, QuantNon-Reactive NormalNonRea<1:1The [facility] on above:Result Comment: Please Note: This test does not meet current guidelines for screening and diagnosis of syphilis. This test is intended for following treatment response in patients being treated for syphilis infection. To screen for syphilis infection, a reflex cascade that includes both RPR and a treponema-specific assay should be utilized, such as Treponema pallidum (Syphilis) Screening [place] (225384) or Rapid Plasma Reagin (RPR) Test With Reflex to Quantitative RPR and Confirmatory Treponema pallidum Antibodies (880716).Performed By: #### CBC #### [facility] [address] [place] [address] Dr. Emilee Salcedo AB IGGon 12-60-6816Aznzbzw Antibodies, IgG5.03 index NormalImmune >0.99Wilson Memorial HospitalComment on above:Result Comment: Non- immune <0.90 Equivocal 0.90 - 0.99 Immune >0.99Performed By: #### RUBIGG #### [facility] [address] [place] [address] Dr. Emilee Killian AUTO DIFFon 71-74-2733GFKU #0.0 103/ulNormal0.0-0.1The [facility] HospitalComment on above:Performed By: #### GLU1HR #### [facility] [address] [place] [address] Dr. Emilee SpringerBasophils/100 WBC (Bld)0.2 %Normal0.2-2.0[facility] Comment on above:Performed By: #### GLU1HR #### [facility] [address] [place] [address] Dr. Emilee Weldon #0.1 103/ulNormal0.0-0.7The [facility] HospitalComment on above: Performed By: #### GLU1HR #### [facility] [address] [place] [address] Dr. Emilee Cintronosinophils/100 WBC (Bld)0.9 %Normal0.9-7.0The [facility] Comment on above:Performed By: #### GLU1HR #### [facility] [address] [place] [address] Dr. Emilee Cintronrythrocyte distribution width (RBC) [Ratio]11.9 %Ioeuva38.0-15.0 The [facility] HospitalComment on above:Performed By: #### GLU1HR #### [facility] [address] [place] [address] Dr. Emilee SpringerHematocrit (Bld) [Volume fraction]32.9 %Critically low36.0-48.0 The [facility] HospitalComment on above:Performed By: #### GLU1HR #### [facility] [address] [place] [address] Dr. Emilee SpringerHemoglobin (Bld) [Mass/Vol]11.6 g/dLCritically low12.0-16.0The [facility] HospitalComment on above:Performed By: #### GLU1HR #### [facility] [address] [place] [address] Dr. Emilee Van #0.03 10e3/ulNormal0.00-0.03The [facility] HospitalComment on above:Performed By: #### GLU1HR #### [facility] [address] [place] [address] Dr. Emilee Van %0.3 %Normal0.0-0.5The [facility] HospitalComment on above: Performed By: #### GLU1HR #### [facility] [address] [place] [address] Dr. Emilee Renae #2.1 103/ulNormal1.2-3.8The [facility] HospitalComment on above:Performed By: #### GLU1HR #### [facility] [address] [place] [address] Dr. Emilee Espinozamphocytes/100 WBC (Bld)20.2 %Critically low20.5-60.0The [facility] HospitalComment on above:Performed By: #### GLU1HR #### [facility] [address] [place] [address] Dr. Emilee SpringerMANUAL DIFF REQNONormalThe [facility] HospitalComment on above: Performed By: #### GLU1HR #### [facility] [address] [place] [address] Dr. Emilee Hannah (RBC) [Entitic mass]31.4 skKftmnz50.7-34.0The [facility] HospitalComment on above:Performed By: #### GLU1HR #### [facility] [address] [place] [address] Dr. Emilee GuevaraHC (RBC) [Mass/Vol]35.3 g/dLCritically high29.9-35.2The [facility] HospitalComment on above:Performed By: #### GLU1HR #### [facility] [address] [place] [address] Dr. Emilee GuevaraV (RBC) [Entitic vol]89.2 wMZengdd32.0-99.0The [facility] HospitalComment on above:Performed By: #### GLU1HR #### [facility] [address] [place] [address] Dr. Emilee Banegas #0.7 103/ulNormal0.3-0.8The [facility] HospitalComment on above:Performed By: #### GLU1HR #### [facility] [address] [place] [address] Dr. Emilee Hightowerocytes/100 WBC (Bld)7.0 %Normal1.7-12.0The [facility] Comment on above:Performed By: #### GLU1HR #### [facility] [address] [place] [address] Dr. Emilee Fernandez #7.5 103/ulCritically high1.4-6.5The [facility] Comment on above:Performed By: #### GLU1HR #### [facility] [address] [place] [address] Dr. Emilee Meeksutrophils/100 WBC (Bld)71.4 %Zbxvww74.0-75.0The [facility] HospitalComment on above:Performed By: #### GLU1HR #### [facility] [address] [place] [address] Dr. Emilee Olmedolet mean volume (Bld) [Entitic vol]9.1 fLCritically low 9.5-13.5The [facility] HospitalComment on above:Performed By: #### GLU1HR #### [facility] [address] [place] [address] Dr. Emilee SpringerPLT311 103/sfFjnran422-550Pmt [facility] HospitalComment on above: Performed By: #### GLU1HR #### [facility] [address] [place] [address] Dr. Emilee SpringerRBC3.69 106/ulCritically low4.20-5.40The [facility] HospitalComment on above:Performed By: #### GLU1HR #### [facility] [address] [place] [address] Dr. Emilee SpringerWBC10.5 103/ulNormal4.0-11.0The [facility] HospitalComment on above:Performed By: #### GLU1HR #### [facility] [address] [place] [address] Dr. Emilee SpringerCULTURE URINEon [id number] URINECulture Observations: LIGHT GROWTH OF MIXED GENITAL BREN. NO POTENTIAL PATHOGENS SEEN.NormalThe [facility] Hospitalment on above:Performed By: #### GLU1HR #### [facility] [address] [place] [address] Dr. Emilee SpringerGLYCOHEMOGLOBIN A1Con [id number] RECOMMENDATIONSEE BELOWNormal The [facility] HospitalComcovenant medical center on above:Result Comment: ADA RECOMMENDED LIMIT 4.0 - 6.0 ADA THERAPEUTIC TARGET < 7.0 ACTION SUGGESTED > 7.0Performed By: #### A1C #### [facility] [address] [place] [address] Dr. Emilee SpringerGlucose [Mass/Vol]108 mg/dLNormalThe [facility] HospitalComcovenant medical center on above:Performed By: #### A1C #### [facility] [address] [place] [address] Dr. Emilee SpringerHbA1c (Bld) [Mass fraction]5.4 %Normal4.5-6.2The [facility] on above:Performed By: #### A1C #### [facility] [address] [place] [address] Dr. Emilee Alonzo BOX TEST PT SEND OUTon [id number] TO REF LAB07/04/2022 NormalThe [facility] HospitalComment on above:Performed By: #### NBOX #### [facility] [address] [address] [address] Emilee SpringerTYPE AND SCREENon [id number] AND SCREENNegativeParkview Health Bryan Hospital on above:Performed By: #### GLU1HR #### [facility] [address] [address] [address] Emilee SpringerUS PREG TVon [id number] PREG TVEXAMINATION: US PREG TV HISTORY: test [...] Electronically authenticated by: YELENA CARLOS Date: 2022-06-23 17:00NoUniversity Hospitals Beachwood Medical CenterHCG, Quantitative, Pregnancyon 66-96-3412kDB Ccegd07592QfhcLZZA [facility]AN[facility]LEComcovenant medical center on above: Non-preg premeno <=5 Postmeno <=8 Male <=3 If HCG results do not concur with clinical observations, additional testing to confirm results is recommended. Interpretation and review of laboratory resultsAbnoalCENTRA [facility] ACOG PANEL 2: to on 04-24-2022..NormalWilson Memorial HospitalComcovenant medical center on above:Performed By: #### [id number] #### [facility] [address] [address] [address] Emilee SpringerAge Gdln ACOG Zhlxzyz92-34TbbudmMmuParkview Health Bryan Hospital on above:Performed By: #### [id number] #### [facility] [address] [id number] [address] Emilee SpringerDIAGNOSIS:CommentParkview Health Bryan Hospital on above: Result Comment: NEGATIVE FOR INTRAEPITHELIAL LESION OR MALIGNANCY. CELLULAR CHANGES ASSOCIATED WITH INFLAMMATION ARE PRESENT.Performed By: #### [id number] #### [address] [address] [address] Emilee SpringerMethodology:CommentParkview Health Bryan Hospital on above: Result Comment: This liquid based ThinPrep(R) pap test was screened with the use of an image guided system.Performed By: #### [id number] #### [address] [address] [address] Emilee SpringerNote:CommentParkview Health Bryan Hospital on above:Result Comment: The Pap smear is a screening test designed to aid in the detection of premalignant and malignant conditions of the uterine cervix. It is not a diagnostic procedure and should not be used as the sole means of detecting cervical cancer. Both false-positive and false-negative reports do occur. .Performed By: #### [id number] #### [address] [address] [address] Emilee SpringerPerformed by:CommentParkview Health Bryan Hospital on above: Result Comment: Mary Lou Adams CytotechnologistPerformed By: #### [id number] #### [address] [address] [address] Emilee SpringerRefchinedu Criteria:[facility] on above:Result Comment: The HPV DNA reflex criteria were not met with this specimen result therefore, no HPV testing was performed. .Performed By: #### [id number] #### [address] [address] [address] Emilee SpringerSpecimen adequacy:CommentParkview Health Bryan Hospital on above:Result Comment: Satisfactory for evaluation. Endocervical and/or squamous metaplastic cells (endocervical component) are present.Performed By: #### [id number] #### [address] [address] [address] Emilee SpringerHCHonorio, Quantitative, Pregnancyon 75-89-2441tMI Hssng39Alid<5 IU/L [facility] HospitalComment on above: Non-preg premeno <=5 Postmeno <=8 Male <=3 If HCG results do not concur with clinical observations, additional testing to confirm results is recommended. Elevated results not associated with may be found in patients with other diseases such as tumors of the germ cells (testis, ovaries, etc.), bladder, pancreas, stomach, lungs, and liver. Interpretation and review of laboratory resultsAbGrant Regional Health Center RENAL COMPLETEOrdered By: Lorena Ricks on [id number] ultrasound of the kidneys and urinary bladder.[employer]wiki Phone: eXAMINATION: RETROPERITONEAL ULTRASOUND OF THE KIDNEYS AND URINARY BLADDER 11/25/2020 COMPARISON: None HISTORY: ORDERING SYSTEM PROVIDED HISTORY: Frequent UTI TECHNOLOGIST PROVIDED HISTORY: This procedure can be scheduled via Review Trackers. Access your [employer] account by visiting [employer]. FINDINGS: Kidneys: The right kidney measures 11.1 cm in length and the left kidney measures 11.6 cm in length. Kidneys demonstrate normal cortical echogenicity. No evidence of hydronephrosis or intrarenal stones. Bladder: Unremarkable appearance of the bladder. No significant post void residual.[employer]wiki Phone: edi, [facility] Incoming Radiant Results From [employer] - 11/25/2020 3:59 PM EDT EXAMINATION: RETROPERITONEAL ULTRASOUND OF THE KIDNEYS AND URINARY BLADDER 11/25/2020 COMPARISON: None HISTORY: ORDERING SYSTEM PROVIDED HISTORY: Frequent UTI TECHNOLOGIST PROVIDED HISTORY: This procedure can be scheduled via Review Trackers. Access your [employer] account by visiting [employer]. FINDINGS: Kidneys: The right kidney measures 11.1 cm in length and the left kidney measures 11.6 cm in length. Kidneys demonstrate normal cortical echogenicity. No evidence of hydronephrosis or intrarenal stones. Bladder: Unremarkable appearance of the bladder. No significant post void residual. IMPRESSION: Unremarkable ultrasound of the kidneys and urinary bladder. Qwiki Phone: Formson [id number] [id number]#1.00CD:[address] [place], [place] [address]ulatory Clinical Summaryon 63-57-0730Houmoqhhnl Clinical Summary {[id number]-we-ch-hi-cx-[id number]-l3-6w-m4-32-5a-16-[id number]-86}CD:[id number]-Patterson Medical CenterGeneral Surgery Office/Clinic Noteon 24-09-7516Dtdgwta Surgery Office/Clinic NoteChief Complaint post operative follow up HPI Staff 8 day post operative follow up post lap appendectomy completed while in-patient at [facility]. Doing well. Minimal discomfort. Taking Ibuprofen [...] available Patient Education Exercise to Lose Weight, Mxot-xo-Txex Problem List/Past Medical History Ongoing Acute appendicitis [...] Use:., 10/13/2020 Family History Family history is negativeNormalOhiohealth Riverside Methodist HospitalComment on above: Result Comment: Electronically Signed By: LATANYA MCKENNA, Sushant Babb\Date and Time Signed: 10/13/20 13:39 EDTPatient Educationon 02-72-5480Ehuarca Education Exercise to Lose Weight Exercise and [...] Document Reviewed: 08/12/2011 ExitCare? Patient Information ?2013 flikdateSaint Francis HealthcareDexrex Gear.[facility] Medical CenterProvider Letter [facility] [place] [facility] [id number] Letter [facility] [place] October 13, 2020 VINNY VERMA [address] [facility] [address] [place] [id number] VINNY VERMA 2000 To Whom It May Concern, Please excuse above patient from work 10/14/20. Sincerely, Dr. Sushant Lott MD General SurgeryNoProMedica Toledo HospitalPathology Noteon 10-08-2020 Pathology [id number]#1.00CD:127[facility]terson Medical CenterFacesheeton 16-87-4139Sfeywotsj [id number]#1.00CD:127[facility] Medical CenterOperative Reporton 73-95-6025Ikvycetni Report [id number]#1.00CD:127NoProMedica Toledo HospitalHIV Screenon 68-83-8126AES Ag/AbNONREACTIVENONREACTIVEAshtabula County Medical Center, [place] Comment on above:No laboratory evidence of HIV infection. If acute HIV infection is suspected, consider testing for HIV-1 RNA. Basic Metabolic Panelon 91-12-5769Mqeni gap [Moles/Vol]11 mmol/L9 - 17 mmol/L [facility], KYBun/Cre Twwmp95ZsgakAshtabula County Medical Center, KYCalcium [Mass/Vol]9.3 mg/dL8.6 - 10.4 mg/dLAvita Health System Ontario Hospital- [place], KYChloride [Moles/Vol]103 mmol/L98 - 107 mmol/LMohiohealth Health- [place], KYCO2 [Moles/Vol]23 mmol/L20 - 31 mmol/LMohiohealth Health- [place], KYCreatinine [Mass/Vol]0.57 mg/dL0.5 - 0.9 mg/dLAshtabula County Medical Center, KYGFR >60>60 mL/minAvita Health System [facility] Hospital- [place], KYGFR Non->60>60 mL/minAvita Health System [facility] Hospital- [place], KYGlucose [Mass/Vol]88 mg/dL70 - 99 mg/dLAshtabula County Medical [facility], KYPotassium [Moles/Vol]4.6 mmol/L3.7 - 5.3 mmol/LMohiohealth Health- [place], KYSodium [Moles/Vol]137 mmol/L135 - 144 mmol/LMUniversity Hospitals Health System- [place], KYUrea nitrogen [Mass/Vol]11 mg/dL6 - 20 mg/dLAshtabula County Medical Center, KYCBCon 04-68-2885Mscctcdsmjd distribution width (RBC) [Ratio]11.7 %Low11.8 - 14.4 %[facility], [place] Hematocrit (Bld) [Volume fraction]36.4 %36.3 - 47.1 %[facility], [place] Hemoglobin (Bld) [Mass/Vol]12.2 g/dL11.9 - 15.1 g/dLAshtabula County Medical [facility], [place] Interpretation and review of laboratory resultsAbnormalOhioHealth Hardin Memorial HospitalH (RBC) [Entitic mass]31.4 pg25.2 - 33.5 pgOhioHealth Hardin Memorial HospitalHC (RBC) [Mass/Vol]33.5 g/dL28.4 - 34.8 g/dLOhioHealth Hardin Memorial HospitalV (RBC) [Entitic vol] 93.8 fL82.6 - 102.9 fLTok, KYPlatelet mean volume (Bld) [Entitic vol]9.2 fL8.1 - 13.5 fLTok, KYPlatelets (Bld) [#/Vol]307 10*3/uL [place], KYRBC (Bld) [#/Vol]3.88 10*6/uLLow3.95 - 5.11 m/uLTok, KYWBC (Bld) [#/Vol]7.2 10*3/uLTok, KYWBC (Bld) [#/Vol] 0.0 10*3/uL0.0 per 100 WBCTok, KYMetabolic Panelon 05-04-2020 GFR/1.73 sq M predicted among non-blacks MDRD (S/P/Bld) [Vol rate/Area][place], KYComment on above:Stage 1: Some kidney damage [...] body mass. Additional eGFR calculator available at: http://www.Accellion.IronPearl/multiple_crcl_2012.htm [facility] 28-39-9687DZI Qn2.22 m[IU]/LMScience Hill, [place] Vital Signs Date TimeVital SignValuePerforming SgopxninbVrcjccei45-65-8936 14:52-0500Body mass index (BMI) [Ratio]38.38 kg/m2Virgil Barton PA Work Phone: [facility] HospitalFruhbioize12-04-8811 14:52-0500Body ufbtth213.86 kgVirgil Barton PA Work Phone: [phone]-[facility] HospitalRzydfsouyv58-93-5636 14:52-0500Diastolic blood hcdombfm59 mm[Hg]Virgil Barton PA Work Phone: [facility] HospitalSzpotwhxxz86-85-4892 14:52-0500Systolic blood fmrxudsv474 mm[Hg]Virgil Barton PA Work Phone: [phone] [place], [place] [address]Ukoraindcg50-19-6801 15:05-0400Body mass index (BMI) [Ratio]37.47 kg/j7Ubpnm Law DO Work Phone: [phone] [place], [place] [address]Kngrgtnjax94-44-4945 15:05-0400Body uzjgyg569.29 kgCorey Law DO Work Phone: [phone] [facility] HealthLakeland Regional HospitalJiswhuunza35-09-3721 15:05-0400Diastolic blood dlwfqihf89 mm[Hg]Mukul Law DO Work Phone: [phone] [place], [place] [address]Vrlhswrjrh12-27-6296 15:05-0400Systolic blood yoyvjsix805 mm[Hg]Mukul Law DO Work Phone: [phone] [place], [place] [address]Fndwimdlag38-33-4794 15:11-0400Body mass index (BMI) [Ratio]36.7 kg/z4XyeogjzaCeasar Li DEPUTY JAILER Work Phone: [phone] [place], [place] [address]Iuurhbyvqz03-85-1611 15:11-0400Body .15 kgCeasar Li DEPUTY JAILER Work Phone: [phone] HospitalFcfeubfoou21-36-5044 15:11-0400Diastolic blood mm[Hg]Ceasar Li DEPUTY JAILER Work Phone: [phone] [place], [place] [address]Tcbukrjvpz79-90-1023 15:11-0400Systolic blood msozmnxs119 mm[Hg]Ceasar Li DEPUTY JAILER Work Phone: [phone]-[facility] HospitalBdadyvyypu62-13-3516 15:50-0400Body mass index (BMI) [Ratio]36.64 kg/m2Virgil Barton PA Work Phone: [facility] HospitalLqsmktiauo26-39-4351 15:50-0400Body fkduiy914.97 kgVirgil Barton PA Work Phone: [facility] HospitalTpvonjdjbb33-07-8295 15:50-0400Diastolic blood mxexwcrq10 mm[Hg]Virgil Barton PA Work Phone: [facility] HospitalXjbnlugcbs13-99-2651 15:50-0400Systolic blood huplwbpy586 mm[Hg]Virgil Barton PA Work Phone: [facility] HospitalAkoixmmszu15-84-6844 15:44-0400Body mass index (BMI) [Ratio]36.61 kg/m2Virgil Barton PA Work Phone: [facility] HospitalEymeybrxvs84-99-7208 15:44-0400Body .88 kgVirgil Barton PA Work Phone: [facility] HospitalDwbqbkvuew10-95-3444 15:44-0400Diastolic blood mm[Hg]Virgil Barton PA Work Phone: [facility] HospitalWhypgthimu57-67-6348 15:44-0400Systolic blood iowmorly539 mm[Hg]Virgil Barton PA Work Phone: [facility] HospitalKttipmtrcj14-29-9109 16:08-0400Body mass index (BMI) [Ratio]36.12 kg/y3Rlcsz Law DO Work Phone: [facility] HospitalIifbhseaqj67-10-3090 16:08-0400Body yjzcvx151.52 kgCorey Law DO Work Phone: [facility] HospitalFnsmctuwuz21-88-2745 16:08-0400Diastolic blood qdkquxlo23 mm[Hg]Mukul Law DO Work Phone: [facility] HospitalVwcckjudrw99-27-3977 16:08-0400Systolic blood zqewmtrs274 mm[Hg]Mukul Law DO Work Phone: [facility] HospitalFapjeapcbw19-23-3380 15:58-0400Body mass index (BMI) [Ratio]35.96 kg/q6Ezwdp Law DO Work Phone: [facility] HospitalMxlaqpjbcs51-26-4145 15:58-0400Body .06 kgCorey Law DO Work Phone: [phone] [place], [place] [address]Fwrrymsfrx19-69-8220 15:58-0400Diastolic blood yzhkoetn88 mm[Hg]Mukul Law DO Work Phone: [phone] [place], [place] [address]Hlfootzrhb08-09-8757 15:58-0400Systolic blood kiloparz522 mm[Hg]Mukul Law DO Work Phone: [phone] [place], [place] [address]Mrdetkgesr10-78-0437 14:06-0400Body mass index (BMI) [Ratio]34.99 kg/r1Dfrhi Law DO Work Phone: [phone] [place], [place] [address]Provrhmrfq26-27-3734 14:06-0400Body etsxaz13.34 kgCorey Law DO Work Phone: [phone] [place], [place] [address]Zuetnbrnqy90-06-8222 14:06-0400Diastolic blood mzvcvqgi86 mm[Hg]Mukul Law DO Work Phone: [phone] [place], [place] [address]Edolyuhdlz53-12-1686 14:06-0400Systolic blood uvoqklzl405 mm[Hg]Mukul Law DO Work Phone: [phone] [place], [place] [address]Fctoqqhgpa59-38-3741 16:41-0400Body mass index (BMI) [Ratio]34.19 kg/m1Ynxxd Law DO Work Phone: [phone] [place], [place] [address]Vhsvhtbxje21-68-9504 16:41-0400Body npilek90.07 kgCorey Law DO Work Phone: [phone] [place], [place] [address]Tcvwwtkyka83-99-4639 16:41-0400Diastolic blood wnsdyonb27 mm[Hg]Mukul Law DO Work Phone: [phone] [place], [place] [address]Oiszawzoks27-83-2187 16:41-0400Systolic blood lqkcvzgi511 mm[Hg]Mukul Law DO Work Phone: [phone] [place], [place] [address]Vioyiweigs75-63-1735 16:15-0400Body mass index (BMI) [Ratio]34.22 kg/b9Jkomy Law DO Work Phone: [facility] HospitalXbllhqhzwd29-82-4296 16:15-0400Body gyjddr35.16 kgCorey Law DO Work Phone: [phone]-[facility] HospitalIwhcqbhgxh44-71-2106 16:15-0400Diastolic blood hvlafywy02 mm[Hg]Mukul Law DO Work Phone: [facility] HospitalIwpawhmxzi06-33-6757 16:15-0400Systolic blood ejwvohel638 mm[Hg]Mukul Law DO Work Phone: [phone]-[facility] HealthL[facility] Regional HospitalCcnevbgfoq65-87-1879 15:15-0400Body mass index (BMI) [Ratio]33.57 kg/m2[facility]04-24-2025 15:15-0400Body iggwjs99.35 kgKind[facility]04-24-2025 15:15-0400Diastolic blood xjdvjavt39 mm[Hg][facility]04-24-2025 15:15-0400Systolic blood julggxtq832 mm[Hg][facility]12-23-2024 16:25-0500Body mass index (BMI) [Ratio]32.93 kg/l6Wajju Law DO Work Phone: [phone]-[facility] HospitalUtxmudjuep89-37-6888 16:25-0500Body .53 kgCorey Law DO Work Phone: [phone]-[facility] HealthLakeland Regional HospitalPribjworfw62-02-7858 03:06-0500Body ktcyyj25.8024 kgDR MUKUL LAW .[facility] HospitalComment on above:Performed By: #### AFPMAT #### [facility] [address] [place] [address] Dr. Emilee Springer Encounters Encounter DateEncounter TypeCare ProviderFacilityStart: 05-29-2025 End: 92-48-7304Uclxppugh Result EncounterCorey Law DO Work Phone: [facility] External Department UnsolicitedStart: 05-29-2025 End: 42-26-4197Pzhcgwxmr Result EncounterCorey Law DO Work Phone: [facility] External Department UnsolicitedStart: 05-28-2025 End: 85-32-1099Immpdqpi flow Chuy RUIZ Work Phone: [facility] [place] OBGYNComment on above:Third trimester ([facility]); 36 weeks gestation of ([facility])Start: 05-28-2025 End: 17-58-7685yjsymvjjjbDZC RAMEYNot AvailableStart: 05-21-2025 End: 13-58-0398Kxyrjvobu Result EncounterCorey Law DO Work Phone: [facility] External Department UnsolicitedStart: 05-21-2025 End: 23-02-8033Wxuytekrg Result EncounterCorey Law DO Work Phone: [facility] External Department UnsolicitedStart: 05-14-2025 End: 00-36-9664ckqmcbuiydNRGVH FAZIONot AvailableStart: 05-14-2025 End: 24-88-7274Cqrdwvav flow sheetCorey Law DO Work Phone: [facility] [place] OBGYNComment on above:Third trimester ([facility]); 34 weeks gestation of ([facility]); Insulin controlled gestational diabetes mellitus (GDM) during , antepartum ([facility]); Gestational diabetes mellitus (GDM), antepartum, gestational diabetes method of control unspecified([facility])Start: 05-14-2025 End: 57-65-6051Hezlmv flowsheetCorey Law DO Work Phone: [facility] [place] OBGYNStart: 05-14-2025 End: 32-93-9535Yzmezt flowsheetCorey Law DO Work Phone: [facility] OBGYNStart: 04-30-2025 End: 34-95-6250qwtaeahkeuQHCNZXAH EBERLYNot AvailableStart: 04-30-2025 End: 16-38-7772Pxmofiog flow sheetCeasar Li NP Work Phone: [facility] [place] OBGYNComment on above:Third trimester ([facility]); 32 weeks gestation of ([facility])Start: 04-30-2025 End: 12-18-5550Kthgsj Dani Li DEPUTY JAILER Work Phone: [facility] OBGYNStart: 04-30-2025 End: 43-81-1809Eepntx Dani Li DEPUTY JAILER Work Phone: [facility] [place] [facility]BGYNStart: 04-30-2025 End: 18-24-9658Vlrawzqsj Result EncounterCorey Law DO Work Phone: noMS External Department UnsolicitedStart: 04-14-2025 End: 05-74-7949gtsuhhbmlgIGK RAMEYNot AvailableStart: 04-14-2025 End: 44-95-4625Mzenytej flow sheetVirgil RUIZ Work Phone: [facility] [place] OBGYNComment on above:Third trimester ([facility]); 30 weeks gestation of ([facility])Start: 04-14-2025 End: 74-37-2238Jgunpo Darek RUIZ Work Phone: [facility] [facility]BGYNStart: 04-14-2025 End: 50-39-2465Syynhy Darek RUIZ Work Phone: [facility] OBGYNStart: 04-05-2025 End: 62-27-1696Zbwcjnldu Result EncounterAmy Oralia RUIZ Work Phone: [facility] External Department UnsolicitedStart: 04-05-2025 End: 44-02-7482Pimeinkzd Result EncounterAmy Oralia RUIZ Work Phone: noMS External Department UnsolicitedStart: 04-03-2025 End: 27-50-9471rylalnwskvOWS RAMEYNot AvailableStart: 04-03-2025 End: 07-76-6798Lepzbtgc flow Chuy RUIZ Work Phone: [facility] OBGYNComment on above:28 weeks gestation of ([facility]); Third trimester ([facility]); Dizziness; Gestational diabetes mellitus (GDM), antepartum, gestational diabetes method of control unspecified([facility]); History of miscarriage; Anemia, unspecified type; UTI symptomsStart: 04-03-2025 End: 16-62-4110Duaeog Darek RUIZ Work Phone: [facility] OBGYNStart: 04-03-2025 End: 24-17-4733Nlfmay CartoDBLandon RUIZ Work Phone: [facility] OBGYNStart: 03-12-2025 End: 16-46-0477bkkkxtllzrLQGWI FAZIONot AvailableStart: 03-12-2025 End: 56-19-0215Negyrljw flow sheetCorey Law DO Work Phone: [facility] OBGYNComment on above:25 weeks gestation of ([facility]); Second trimester ([facility]); Gastroesophageal reflux disease without esophagitisStart: 03-12-2025 End: 64-70-8748Msuyiv flowsheetCorey Law DO Work Phone: [facility]BGYNStart: 03-12-2025 End: 08-86-0882Onmehl flowsheetCorey Law DO Work Phone: [facility]BGYNStart: 02-26-2025 End: 98-45-1709joxgkbnlqiNGWYL FAZIONot AvailableStart: 02-26-2025 End: 01-01-1008Ixyyokcj flow sheetCorey Law DO Work Phone: [facility] OBGYNComment on above:23 weeks gestation of ([facility]); Elevated blood sugar level; Gastroesophageal reflux disease without esophagitisStart: 02-26-2025 End: 32-61-1876Cpswmy flowsheetCorey Law DO Work Phone: [facility]BGYNStart: 02-26-2025 End: 99-36-3107Baxtrq flowsheetCorey Law DO Work Phone: [facility] [place] [facility]BGYNStart: 02-11-2025 End: 42-96-7075Mhexllje flow sheetCorey Law DO Work Phone: [facility] BCP OBComment on above:Second trimester ([facility]); 20 weeks gestation of ([facility])Start: 02-11-2025 End: 25-90-5371zcfwcnspcySRMTH FAZIONot AvailableStart: 01-15-2025 End: 42-08-2792myteyglczzVUIUZ FAZIONot AvailableStart: 01-15-2025 End: 52-89-3938Tdwllljb flow sheetCorey Law DO Work Phone: noMS BCP OBComment on above:Second trimester ([facility]); 17 weeks gestation of ([facility]); Vaginal discharge; STD exposure; Screening, , for anatomic survey ([facility]); Gastroesophageal reflux in ([facility]); Gestational diabetes mellitus (GDM), antepartum, gestational diabetes method of control unspecified([facility])Start: 01-15-2025 End: 61-65-2217Xtxayo flowsheetCorey Law DO Work Phone: [facility] BCP OBStart: 01-15-2025 End: 93-93-9503Qdjeae flowsheetCorey Law DO Work Phone: [facility] BCP OBStart: 01-15-2025 End: 93-46-2576Dbokiyhq Result EncounterVirgil RUIZ Work Phone: [facility] External Department UnsolicitedStart: 01-07-2025 End: 86-75-2695ugfctxbintLGPPNVHallie Lamas Fleming HospitalStart: 01-07-2025 End: 44-89-1600Yeowsysbvo hospital visit by Kayden Steele CNP Work Phone: [facility] LABStart: 12-23-2024 End: 43-76-0356Yunfeipup Result EncounterCorey Law DO Work Phone: [facility] External Department UnsolicitedStart: 12-23-2024 End: 21-05-8885Yckndgnzt Result EncounterCorey Law DO Work Phone: [facility] External Department UnsolicitedStart: 12-20-2024 End: 54-18-4856azrkwyblfyATWPAF M Adams Fleming HospitalStart: 12-20-2024 End: 93-25-6639Knpuxpnbxi hospital visit by [facility] Ultrasound [facility] UltrasoundComment on above:Subchorionic hematoma, antepartum, first trimester, not applicable or unspecified fetusStart: 12-18-2024 End: 65-39-1916yamwzfekstAGRXC FAZIONot AvailableStart: 12-18-2024 End: 89-10-8192Dtbzlcsm flow sheetCorey Law DO Work Phone: n[facility] BCP OBComment on above:Second trimester ; 12 weeks gestation of ; Subchorionic hematoma in first trimester, single or unspecified fetus; Diabetes mellitus screeningStart: 12-18-2024 End: 82-68-8680Ptpmso flowsheetCorey Law DO Work Phone: [facility] BCP OBStart: 12-18-2024 End: 74-14-5340Dfydqp flowsheetCorey Law DO Work Phone: [facility] BCP OBStart: 11-14-2024 End: 45-17-3112Eqoqtm outpatient visit 5 minutesNoms Bcp Ob Law NurseNOMS BCP OBComment on above:GA: 2j2yFvhlm: 11-14-2024 End: 38-94-0833psysoqsylyGQQGD FAZIONot AvailableStart: 07-15-2024 End: 58-75-9667Ubyzllz encounter procedureCorey Law DO Work Phone: n[facility] HealthcareStart: 07-15-2024 End: 32-91-0812Pgjzukyi preventive med est patient 18-39 yrsCorey Law DO Work Phone: [facility] BCP OBComment on above:Well woman exam with routine gynecological examStart: 07-15-2024 End: 43-99-5690kspytawlnmGGKDG FAZIONot AvailableStart: 07-15-2024 End: 04-65-6517Wutyexadj Result EncounterCorey Law DO Work Phone: n[facility] External Department UnsolicitedStart: 07-15-2024 End: 92-11-5522Pvshhnqth Result EncounterCorey Law DO Work Phone: [facility] External Department UnsolicitedStart: 05-20-2024 End: 67-07-4203szjienokjpHVOKHVYNES Cort[facility] HospitalStart: 05-20-2024 End: 96-59-9066Cnrgapnfuh hospital visit by Kayden Steele CNP Work Phone: mthz LaboratoryComment on above:Elevated liver enzymes; Mixed hyperlipidemiaStart: 03-06-2024 End: 67-47-9105nxtkwnmizcENQLZJShanda Cortés HospitalStart: 02-16-2024 End: 08-43-8931zlzqsyrvsaMWRKCFShanda Cortés HospitalStart: 08-06-2023 End: 51-01-9301osufjvnwhlWokiqgmd:[facility]. [facility] Hospitaltart: 07-11-2023 End: 17-21-9342kgivmvirknKMTY [facility] Hospitaltart: 03-20-2023 End: 90-22-2666wsrulojgwcAVPVF [facility] Campustart: 12-17-2022 End: 01-94-2968dopdirnpzdLF MUKUL LAW .Facility:G7Cvpws: 12-12-2022 End: 17-14-2368cngorstuaqNJ KYLIE SEYMOUR .Facility:L8Ivnqj: 12-10-2022 End: 12-89-1021iocflbofmsQH MUKUL LAW .Facility:C3Ktpjl: 10-31-2022 End: 75-40-4707yszrsyqoeoNU MUKUL LAW .Facility:N0Fsirm: 10-22-2022 End: 26-30-8523prhlcgthfkSPO ORALIA .Facility:R1Omwkv: 10-15-2022 End: 20-48-8860kvkoykoeiqDS MUKUL LAW .Facility:K3Vneez: 09-12-2022 End: 62-94-6059yxbdhwicrmBQ MUKUL LAW .Facility:K6Pxgea: 09-10-2022 End: 59-28-8923qkrkxuugiuDX MUKUL LAW .Facility:Q4Ajkcf: 08-29-2022 End: 55-81-8308wyivxcghnfNB MUKUL LAW .Facility:Y9Cshfo: 08-01-2022 End: 48-63-6570Vuzlewfcfn hospital visit by [facility] LaboratoryStart: 07-04-2022 End: 24-50-9785npytxaahzgSQ MUKUL LAW .Facility:E4Ahinm: 06-23-2022 End: 10-70-2781hghbdizvlsKY YELENA CARLOSFacility:E9Pkogs: 06-09-2022 End: 18-46-0431lnwdltxddeLR MUKUL LAW .Facility:Q6Lmcnj: 06-02-2022 End: 73-23-2239Yuthubaczg hospital visit by Kayden Steele CNP Work Phone: mthz LaboratoryStart: 04-18-2022 End: 83-37-1563pdhhtlfiweFP MUKUL LAW .Facility:M2Xxcio: 09-23-2021 End: 34-81-7211lerlcnbruvWBRAAKENZIE Campo [facility] HospitalStart: 09-08-2021 End: 33-83-3399qfiusspxcqMHJUF R FAZIORiverside Yazidi HospitalStart: 08-25-2021 End: 63-47-9123zlqtjodasrLTUZB R FAZIORiverside Yazidi HospitalStart: 08-19-2021 End: 14-49-1594nnwinnqnabXJOAH R FAZIORiverside Yazidi HospitalStart: 08-10-2021 End: 02-93-9788Grnkpsicou hospital visit by Kayden Steele CNP Work Phone: mthz LaboratoryComment on above:AmenorrheaStart: 11-25-2020 End: 66-62-3691Rekqnjnbnu hospital visit by [facility] RadiologyComment on above:Frequent UTIStart: 05-04-2020 End: 17-38-4711Hudvprldrv hospital visit by Kayden Chapman LaboratoryComment on above:Encounter for screening for HIV; Other fatigue; Wellness examinationStart: 03-03-2020 End: 27-80-4659Ejrrvzwfsa hospital visit by Brayden Dickinson LaboratoryComment on above:Screening for cervical cancer; Encounter for annual routine gynecological examination Procedures DateProcedureProcedure DetailPerforming ClinicianStart: 83-70-4674CC OB BPP W NON-STRESSCorey Law DO Work Phone: Start: 22-73-0541Jxglp dip stick/tablet rgnt non-auto w/o micrscpAmy Oralia RUIZ Work Phone: Start: 35-98-2961PT OB BPP W NON-STRESSCorey Law DO Work Phone: Start: 31-07-4826Rxxtz dip stick/tablet rgnt non-auto w/o micrscpCorey Law DO Work Phone: Start: 13-13-9651JV OB BPP W NON-STRESSCorey Law DO Work Phone: Start: 73-17-7482Dmwgs dip stick/tablet rgnt non-auto w/o micrscpKristina Guillermo CHRISTOPHER Work Phone: Start: 47-89-1575Rtoks dip stick/tablet rgnt non-auto w/o micrscpAaric RUIZ Work Phone: Start: 92-07-7109CK OB GROWTHAmy Oralia RUIZ Work Phone: Start: 53-97-1215HWX CBC WITH AUTO DIFFVirgil RUIZ Work Phone: Start: 13-34-5252Kgpqd dip stick/tablet rgnt non-auto w/o micrscpAmy Oralia RUIZ Work Phone: Start: 10-63-8174Ggeid dip stick/tablet rgnt non-auto w/o micrscpCorey Law DO Work Phone: Start: 06-93-1393Migyq dip stick/tablet rgnt non-auto w/o micrscpCorey Law DO Work Phone: Start: 78-22-3761Exvxv dip stick/tablet rgnt non-auto w/o micrscpCorey Law DO Work Phone: Start: 93-94-0113ZXZLSQBDS VAGINITIS (HTRX)Virgil RUIZ Work Phone: Start: 44-24-2367Behoj count complete automatedAmy L Oralia CAMPOS Work Phone: Start: 73-05-5969ZM OB LESS THAN 14 WEEKS SINGLE OR FIRST GESTATIONCorey Law DO Work Phone: Start: 45-65-7658Hwtwh dip stick/tablet rgnt non-auto w/o micrscpCorey Law DO Work Phone: Start: 82-21-3256Vwdmv dip stick/tablet rgnt non-auto w/o micrscpCorey Law DO Work Phone: Start: 40-84-9148BVE,APTIMA HPV,AGE GDLNCorey Law DO Work Phone: Start: 33-78-6187Qfpyzeewnpm observation [Identifier] in Cervix by Cyto stainYnes Rodriguez WATCH CASE POLISHER - REMANUFACTURING TECHNICIAN Work Phone: Start: 51-23-7091Atebc panelYnes Rodriguez WATCH CASE POLISHER - REMANUFACTURING TECHNICIAN Work Phone: Start: 14-85-0044Bdvvxpdkeybep metabolic Nancy Rodriguez WATCH CASE POLISHER - REMANUFACTURING TECHNICIAN Work Phone: Start: 72-99-5983Jgrliljvpyt observation [Identifier] in Cervix by Cyto stainCity Hospital RoomStart: 16-21-7499Yajpwqmf Navid Rosario Dharmesh WATCH CASE POLISHER - REMANUFACTURING TECHNICIAN Work Phone: Start: 44-43-9817Hakkxjokwqna chorionic quantitative Mukul Foy MD Work Phone: Start: 64-50-4666Wanpdovyqwua chorionic quantitative Berto Albarran Calos WATCH CASE POLISHER - CNM Work Phone: Start: 00-19-2197Od retroperitoneal real time w/image completeBethany W Rambo WATCH CASE POLISHER - REMANUFACTURING TECHNICIAN Work Phone: Start: 27-96-3562Xsdzjnow hiv-1&hiv-2 single result Ynes Conner Fede Work Phone: Start: 79-61-8977Dkhfy of thyroid stimulating hormone tshYnes Conner Fede Work Phone: Start: 83-12-2681Wcrjj metabolic panel calcium total Ynes Conner Fede Work Phone: Start: 71-40-8437Mtbuk count complete automatedYnes Conner Fede Work Phone: Start: 11-30-6159Kiyshvyftuw observation [Identifier] in Cervix by Cyto lynnetteHarryjose raul Rodriguez WATCH CASE POLISHER - REMANUFACTURING TECHNICIAN Work Phone: Plan of Treatment DateCare ActivityDetailAuthorStart: 51-23-0657Uumtljxjn for malignant neoplasm of cervixPap smearBon [facility] CenterLiveStories [facility] HospitalStart: 27-80-2824Khyilbhmt for malignant neoplasm of cervixPap smearBon [facility] CenterLiveStories [facility] HospitalStart: 08-07-2025 Depression ScreenDepression ScreenBon [facility] HospitalStart: 07-28-2025 End: 96-37-9830Arhgdwm encounter procedureNOMS BCP OBStart: 06-02-2025 End: 05-66-5819Qieiymy encounter trgdazpce99/10/2025 1:00 PM EST Routine [facility] [address] [place], [id number] Mukul Foy, DO [address] [place] [address] N[facility] Heri OBGYNStart: 05-28-2025 End: 93-49-8828Cgcojtk encounter qdgtyliwq57/05/2025 2:30 PM EST Routine [facility] [address] [place], [id number] Virgil Barton PA [address] [place] [address] N[facility] Heri OBGYNStart: 05-28-2025 End: 26-86-6474XCRFHUB, GROUP B STREP WITH SUSCEPTIBLITYCULTURE, GROUP B STREP WITH SUSCEPTIBLITY Lab Routine Third trimester ([facility]) Expected: 05/28/2025, Expires: 05/28/2026[facility] Work Phone: comment on above:Expected: 05/28/2025, Expires: 05/28/2026Start: 05-28-2025 End: 50-71-5877Qyvvnaqwvnbk / ancillary services gfywfobfyb34/05/2025 2:00 PM EST Ancillary Procedure [facility] [address] [place] [phone] [facility] [place] OBGYNStart: 60-53-8042Qjwfr panelLipids [facility] HospitalStart: 05-14-2025 End: 30-37-3829Vaiszwk encounter mcytapfey37/22/2025 2:50 PM EDT Routine [facility] [address] [place], [id number] Mukul Foy, [address] [place] [address] N[facility] Heri OBGYNStart: 05-14-2025 End: 12-64-0927KH for pregnancyUS OB follow up transabdominal approach Imaging Routine Insulin controlled gestational diabetes mellitus (GDM) during , antepartum ([facility]) Expected: 05/14/2025, Expires: 09/14/2025[facility] Work Phone: comment on above:Expected: 05/14/2025, Expires: 09/14/2025Start: 05-14-2025 End: 85-49-6706Jugablq encounter shcudpneo17/22/2025 11:40 AM EDT Office Visit [facility] [address] [place] [address] Ynes Rodriguez, WATCH CASE POLISHER - REMANUFACTURING TECHNICIAN [address] [place] [id number] 6 month f/[facility] CareComment on above:6 month f/uStart: 04-30-2025 End: 34-90-1175Dqxhyub encounter /08/2025 3:00 PM EDT Routine [facility] SANTO [address] [place], [id number] Ceasar Li, DEPUTY JAILER [address] [place] [phone] N[facility] Heri OBGYNStart: 04-14-2025 End: 00-22-0318Nagersn encounter ouhbuoqei51/22/2025 3:20 PM EDT Routine [facility] SANTO [address] [place], [id number] Virgil Barton PA [address] [place], [place] [address] N[facility] Heri OBGYNStart: 04-03-2025 End: 59-68-9298Ltvduog encounter /11/2025 3:30 PM EDT Routine [facility] SANT[facility] [address] [place], [id number] Virgil Barton PA [address] [place] [address] [place] [address] NOMRenzo [place] OBGYNStart: 04-03-2025 End: 92-81-2231SGT W Auto Differential panel - BloodCBC and differential Lab Routine Dizziness Anemia, unspecified type Expected: 04/03/2025 (Approximate), Expires: 04/03/2026[facility] HealthcareComment on above:Expected: 04/03/2025 (Approximate), Expires: 04/03/2026Start: 04-03-2025 End: 82-06-0267ZD biophysical profile w non stress testUS biophysical profile w non stress test Imaging Routine 28 weeks gestation of ([facility]) Third trimester ([facility]) Gestational diabetes mellitus (GDM), antepartum, gestational diabetes method of control unspecified ([facility]) History of miscarriage Expected: 04/03/2025 (Approximate), Expires: 10/01/2025[facility] HealthcareComment on above:Expected: 04/03/2025 (Approximate), Expires: 10/01/2025Start: 04-03-2025 End: 10-44-9211EP for pregnancyUS OB follow up transabdominal approach Imaging Routine 28 weeks gestation of ([facility]) Third trimester ([facility]) Gestational diabetes mellitus (GDM), antepartum, gestational diabetes method of control unspecified ([facility]) History of miscarriage Expected: 04/03/2025, Expires: 08/03/2025[facility] Work Phone: comment on above:Expected: 04/03/2025, Expires: 08/03/2025Start: 58-16-8973NDNYE-19 Vaccine ( season)COVID-19 Vaccine ( season)[facility] HealthcareStart: 13-05-9402Bdzqymudx vaccinationNOSD HealthcareStart: 05-70-0295Vokgpdcdr vaccinationFlu vaccine (Season Ended)[facility] HealthStart: 02-11-2025 End: 43-43-6910Qmuscbz encounter fmpqrugjy78/22/2025 2:10 PM EDT Routine [facility] [address] [place] [address] Mukul Foy, DO [address] [place] [address] NOM[facility] BCP OBStart: 02-11-2025 End: 09-64-9315Mtlpxyiyuieh / ancillary services klwqebxhhq21/22/2025 1:00 PM EDT Ancillary Procedure [facility] [address] [place] [address] [phone] BCP OBStart: 01-15-2025 End: 89-42-7128Swkefeu encounter /25/2025 3:50 PM EDT Routine [facility] [address] [place] [address] Mukul Foy, DO [address] [place] [address] NOMS BCP OBStart: 01-15-2025 End: 09-64-1732Fmdtc fetoprotein, maternalAlpha fetoprotein, maternal Lab Routine Second trimester ([facility]) 17 weeks gestation of ([facility]) Expected: 01/15/2025 (Approximate), Expires: 07/17/2025[facility] Comment on above:Expected: 01/15/2025 (Approximate), Expires: 07/17/2025Start: 01-15-2025 End: 41-00-0705ZQ for pregnancyUS OB 14+ weeks anatomy scan Imaging Routine Screening, , for anatomic survey ([facility]) Expected: 01/15/2025, Expires: 04/17/2025[facility]:Expected: 01/15/2025, Expires: 04/17/2025Start: 12-18-2024 End: 47-73-0242Cpzhmxs encounter dweivkvuj95/28/2025 3:40 PM EDT Routine [facility] [address] [place] [phone] Mukul Foy, DO [address] [place] [address] [place] [address] N[facility] BCP OBStart: 12-18-2024 End: 50-01-7828DLU panel - Blood by Automated countCBC Lab Routine Diabetes mellitus screening Expected: 12/18/2024 (Approximate), Expires: 12/18/2025[facility] Work Phone: comment on above:Expected: 12/18/2024 (Approximate), Expires: 12/18/2025Start: 12-18-2024 End: 14-29-3117Yvduitjxnlh of glucose 1 hour after glucose challenge for glucose tolerance testGlucose tolerance, 1 hour Lab Routine Diabetes mellitus screening Expected: 12/18/2024 (Approximate), Expires: 12/18/2025[facility] above:Expected: 12/18/2024 (Approximate), Expires: 12/18/2025Start: 12-18-2024 End: 04-70-9098ET Pelvis transvaginalUS OB transvaginal Imaging Routine Subchorionic hematoma in first trimester, single or unspecified fetus Expected: 12/18/2024, Expires: 03/20/2025[facility] Work Phone: comment on above:Expected: 12/18/2024, Expires: 03/20/2025Start: 11-14-2024 End: 31-52-4513CZN/RhABO/Rh Lab Routine Missed menses , unspecified gestational age Expected: 11/14/2024 (Approximate), Expires: 11/14/2025[facility] on above:Expected: 11/14/2024 (Approximate), Expires: 11/14/2025Start: 11-14-2024 End: 82-86-3144Ovfzq type and Indirect antibody screen panel - BloodType and screen Lab Routine Missed menses , unspecified gestational age Expected: 11/14/2024 (Approximate), Expires: 11/14/2025[facility] Healthcare[facility] on above:Expected: 11/14/2024 (Approximate), Expires: 11/14/2025Start: 11-14-2024 End: 97-84-8873[place] of abuse panel - Urine by Screen methodRapid drug screen, urine Lab Routine , unspecified gestational age Encounter for supervision of normal first in first trimester Expected: 11/14/2024 (Approximate), Expires: 11/14/2025[facility] HealthcareComment on above:Expected: 11/14/2024 (Approximate), Expires: 11/14/2025Start: 11-06-2024 End: 70-50-0514OC Pelvis transvaginalUS OB transvaginal Imaging Routine Missed menses Expected: 11/06/2024, Expires: 02/05/2025[facility] Work Phone: comment on above:Expected: 11/06/2024, Expires: 02/05/2025Start: 10-16-2024 End: 87-10-6147Qeajrxt encounter fkhgltlbo74/26/2025 1:40 PM EDT Office Visit [address] [place] [address] Ynes Rodriguez, WATCH CASE POLISHER - REMANUFACTURING TECHNICIAN [address] [place] [address] [address] [place] [address] [facility] CareComment on above:WellnessStart: 02-00-9662Uuvoldfxgs ScreenDepression ScreenBon Secours [facility] HospitalStart: 06-04-2024 End: 92-48-1009Btgzyyk encounter tygplxpny70/12/2024 11:45 AM EST Office Visit [address] [place] [address] Jose Cruz Raza MD [address] [place] [address] [address] [place] [address] wt [facility] CareComment on above:wt managementStart: 05-22-2024 End: 30-93-7830Wzxcqso encounter umdsxrvlr13/30/2024 11:00 AM EDT Office Visit [address] [place] [address] Ynes Rodriguez, WATCH CASE POLISHER - REMANUFACTURING TECHNICIAN [address] [place] [address] LFT + HLD f/u(RS 10/17/23 appt)[facility] Primary CareComment on above:LFT + HLD f/u(RS 10/17/23 appt)Start: 29-44-7470WECMQ-19 Vaccine ( season)COVID-19 Vaccine ( season)[facility] HospitalStart: 10-12-8225JOYSW-19 Vaccine ()COVID-19 Vaccine ()[facility] HospitalStart: 76-94-8028Xauassmbe vaccinationInfluenza Vaccine (#1)[facility] HealthcareStart: 76-74-8453Aaciagbqy vaccinationFlu vaccine (#1)[facility] HospitalStart: 25-23-8612Pgaoakciq for malignant neoplasm of cervixAvita Health System Ontario HospitalStart: 19-27-4963Kgakgwzgob ScreenDepression ScreenSOVAH HEALTH - DANVILLEStart: 07-11-2022 End: 14-70-9032Ffcahsy encounter eaivrrnav98/19/2022 Office Visit Primary Care Ynes Rodriguez, WATCH CASE POLISHER - REMANUFACTURING TECHNICIAN [address] [place] [address] [facility] Start: 05-19-2022 End: 23-00-6732Aztniix encounter /27/2022 Office Visit Obstetrics and Gynecology Berto Live, JOSE J - CNDalila [address] [place] [address] [facility] OBSTETRICS & GYNECOLOGY Part [facility] Hospitaltart: 03-18-2022 End: 39-72-7718Lpubpnt encounter ngcvfoqam34/26/2022 Office Visit Family Medicine Ynes Rodriguez, WATCH CASE POLISHER - REMANUFACTURING TECHNICIAN [address] [place] [address] [facility] FAMILY MEDIC[facility] Part [facility] Hospitaltart: 92-83-5602Wzmshbtsk C screeningHepatitis C screenOur Lady Of Mercy Hospital HealthComment on above:Postponed from 1998 (Patient Refused)Start: 09-80-2600Rrksqdicw vaccinationFlu vaccine (#1)[facility]: 80-14-5744Ltzlrxipm for Chlamydia trachomatisAvita Health System Ontario HospitalStart: 09-24-2021 Influenza vaccinationFlu vaccine (Season Ended)[facility] Work Phone: comment on above:Postponed from 03/24/2021 (Patient Refused)Start: 92-46-1037Ksrfpbfvxr MonitoringDepression MonitoringAvita Health System [facility] Start: 84-85-2460PXSJT-19 Vaccine (3 - Booster for Pfizer series)COVID-19 Vaccine (3 - Booster for Pfizer series)[facility] Centerart: 86-29-6069BLmN/Tdap/Td vaccine (7 - Td or Tdap)DTaP/Tdap/Td vaccine (7 - Td or Tdap)[facility] Centerart: 71-72-8622MHsU/Tdap/Td vaccine (7 - Td)DTaP/Tdap/Td vaccine (7 - Td)[place], [place]: 49-51-3919Useepomrs vaccinationFlu vaccine (#1)[facility] Start: 58-06-0671Sggpdfvtq for Chlamydia trachomatisChlamydia screenTok, [place]Start: 09-35-2518FXHBA-19 Vaccine (3 - Booster for Pfizer series) COVID-19 Vaccine (3 - Booster for Pfizer series)[facility] System[facility]: 02-09-2021 End: 58-08-1281Aisyowd encounter jbtfqqqif32/20/2021 Office Visit Family Medicine Ynes Rodriguez, WATCH CASE POLISHER - REMANUFACTURING TECHNICIAN [address] [place] [address] [phone] [facility] FAMILY MEDICINE Part [facility] Hospitaltart: 11-30-2020 End: 76-78-2762Pyjpgdk encounter rkdxwykbs99/10/2021 Office Visit Urology Chris Moe MD [address] [facility] [address] [facility], [address] [place], [place] [phone] [facility] UROLOGY [facility]art: 05-28-2020 End: 20-18-9065Uzgikapgfxis97/05/2020 Telemedicine Family Medicine Ynes Rodriguez, WATCH CASE POLISHER - REMANUFACTURING TECHNICIAN [address] [place] [address] [phone] [facility] FAMILY MEDICINE [facility] Start: 22-74-3863Ggdbxikrl vaccinationFlu vaccine (#1)[facility]: 71-07-1751Xjvbjyrkb for Chlamydia trachomatisChlamydia [facility]: 87-72-2059Gfeohwnll for malignant neoplasm of cervixCervical cancer [place], [place]Start: 93-11-3680Rsctzvybt B Vaccines (1 of 3 - 19+ 3- dose series)Hepatitis B Vaccines (1 of 3 - 19+ 3-dose series)[facility] Start: 96-10-8161Amonbkicu C screeningHepatitis C screenBON SECOURS [facility] Start: 01-33-9941ZOBJS-19 Vaccine (1)COVID-19 Vaccine (1)[facility] Work Phone: start: 41-51-2864UER screeningHIV [place], [place]Start: 14-70-5657LMX Vaccines (1 - 3-dose series)HPV Vaccines (1 - 3-dose series)[facility] HealthcareStart: 08-16-5957Ypqpgrz of varicella vaccinationVaricella Vaccines (1 of 2 - 13+ 2-dose series)[facility] HealthcareStart: 2005 DTaP/Tdap/Td Vaccines (1 - Tdap)DTaP/Tdap/Td Vaccines (1 - Tdap)[facility] Start: 27-88-7821YUB Vaccines (1 of 1 - Standard series)MMR Vaccines (1 of 1 - Standard series)[facility] HealthcareStart: 36-10-5162Pbrtzloql C screeningHepatitis C screenOur Lady Of Mercy Hospital [employer] Work Phone: bacteria identified in Urine by CultureUrine culture Microbiology Routine Missed menses Ordered: 11/14/2024[facility] HealthcareComment on above:Ordered: 5Bacteria identified in Urine by CultureUrine culture Microbiology Routine UTI symptoms Ordered: 04/03/2025[facility] HealthcareComment on above:Ordered: 04/03/2025 End: 03-03-2020C.trachomatis N.gonorrhoeae DNA, Thin PrepC.trachomatis N.gonorrhoeae DNA, Thin Prep Microbiology Routine Encounter for annual routine gynecological examination 1 Occurrences starting 03/03/2020 until 03/03/2020 [facility]MARIELAComment on above:1 Occurrences starting 03/03/2020 until 03/03/2020C.trachomatis N.gonorrhoeae DNA, Thin PrepC.trachomatis N.gonorrhoeae DNA, Thin Prep Microbiology Routine Encounter for annual routine gynecological examination 03/03/2020 5:08 PM [facility] CenterMARIELACBC W Auto Differential panel - BloodCBC and differential Lab Routine Missed menses , unspecified gestational age Ordered: 11/14/2024[facility] HealthcareComment on above: Ordered: 5CHLAMYDIA TRACHOMATIS (GENITO/STI)CHLAMYDIA TRACHOMATIS (GENITO/STI) Lab Routine STD exposure Ordered: 01/15/2025[facility] HealthcareComment on above:Ordered: 5Cytology Cervical or vaginal smear or scraping study Pap Smear Pathology and Cytology Routine Well woman exam with routine gynecological exam Ordered: 07/15/2024[facility] Work Phone: comment on above:Ordered: 07/15/2024 End: 69-08-4435Ziwxjhdlthmyw procedure, preparation of smear, genital sourcePAP SMEAR Lab Routine Screening for cervical cancer 1 Occurrences starting 03/03/2020 until 03/03/2020[facility] CenterMARIELAComment on above:1 Occurrences starting 03/03/2020 until 03/03/2020Hemoglobin A1c/Hemoglobin.total in Blood Hemoglobin A1c Lab Routine Missed menses , unspecified gestational age Ordered: 11/14/2024[facility] HealthcareComment on above:Ordered: 11/14/2024Hepatitis B virus surface Ag [Presence] in Serum or Plasma by ImmunoassayHepatitis B surface antigen Lab Routine Missed menses , unspecified gestational age Ordered: 11/14/2024[facility] HealthcareComment on above:Ordered: 11/14/2024Hepatitis C virus Ab [Presence] in Serum or Plasma by ImmunoassayHepatitis C antibody Lab Routine Missed menses , unspecified gestational age Ordered: 11/14[facility] HealthcareComment on above:Ordered: 11/14/2024HIV-1/HIV-2 antigen/antibody combination immunoassayHIV-1 and HIV-2 antibodies Lab Routine Missed menses , unspecified gestational age Ordered: 11/14/2024[facility] HealthcareComment on above:Ordered: 11/14/2024Neisseria gonorrhoeae DNA [Presence] in Unspecified specimen by ANISA with probe detectionNeisseria gonorrhea DNA probe, direct Lab Routine STD exposure Ordered: 01/15/2025[facility] HealthcareComment on above:Ordered: 01/15/2025Reagin Ab [Presence] in Serum by RPRRPR Lab Routine Missed menses , unspecified gestational age Ordered: 11/14/2024[facility] HealthcareComment on above:Ordered: 11/14/2024Rubella antibody, IgGRubella antibody, IgG Lab Routine Missed menses , unspecified gestational age Ordered: 11/14/2024[facility] HealthcareComment on above:Ordered: 11/14/2024SURESWAB(R) ADVANCED VAGINITIS PLUS, TMASURESWAB(R) ADVANCED VAGINITIS PLUS, TMA Pathology and Cytology Routine Vaginal discharge Ordered: 01/15/2025 [facility] Work Phone: comment on above:Ordered: 01/15/2025US Pelvis transvaginalUS OB transvaginal Imaging Routine Missed menses 11/14/2024 2:38 PM [facility] End: 51-00-0230Nv uterus 14 wk transabdl 07/24 [facility] Work Phone: Comment on above:1 Occurrences starting 12/20/2024 until 12/20/2024 Immunizations Immunization DateImmunizationNotesSaint Francis Healthcare IertuanaDmgsgmzz72-95-3029LJUUA-86, Pfizer Purple top, DILUTE for use, 12+ yrs, 30mcg/0.3mL doseHanjose raul Fischern WATCH CASE POLISHER - REMANUFACTURING TECHNICIAN Work Phone: [facility] Work Phone: [phone]-94, Pfizer Purple top, DILUTE for use, 12+ yrs, 30mcg/0.3mL doseHancortezh Rodriguez WATCH CASE POLISHER - REMANUFACTURING TECHNICIAN Work Phone: [facility] HospitalDwyskx59-74-2251mmfna papilloma virus vaccine, quadrivalentMarietta Osteopathic Clinic, AI41-81-2024harsn papilloma virus vaccine, quadrivalentMarietta Osteopathic Clinic, LD04-49-6743hzoea papilloma virus vaccine, quadrivalentMarietta Osteopathic Clinic, [place] 78-34-3195fudjmbfqmguxr polysaccharide (groups A, C, Y and W-135) diphtheria toxoid conjugate vaccine (MCV4P)[facility], RA63-01-6865 meningococcal ACWY vaccine, unspecified formulationMarietta Osteopathic Clinic, EU36-00-8165Jzkvpyofn A Ped/Adol (Vaqta)[facility], [place] 16-10-2571dbdrwvpbs A vaccine, pediatric/adolescent dosage, 2 dose schedule [place] Fede WATCH CASE POLISHER - [facility] Work Phone: [employer] [facility] Work Phone: [phone] toxoid, reduced diphtheria toxoid, and acellular pertussis vaccine, adsorbedMarietta Osteopathic Clinic, [place] 59-16-2903Ltgahegqg A Ped/Adol (Vaqta)[facility], [place] 91-26-8200aefptbclj A vaccine, pediatric/adolescent dosage, 2 dose schedule Ynesstephany Rodriguez WATCH CASE POLISHER - [facility] Work Phone: bon [facility]AppAD[facility] Work Phone: [phone]zqhisi virus vaccineMarietta Osteopathic Clinic, GB95-84-3732uhhssfwqvardb polysaccharide (groups A, C, Y and W-135) diphtheria toxoid conjugate vaccine (MCV4P)[facility], [place] 71-03-6978kqdkvtnbqy, tetanus toxoids and acellular pertussis vaccineMarietta Osteopathic Clinic, KL00-13-6126tjxqeqh, mumps and rubella virus vaccine [facility], ON91-08-5263gqbajwmivx vaccine, inactivated [facility], KX21-43-9564quyjoffpit, tetanus toxoids and acellular pertussis vaccineMarietta Osteopathic Clinic, LW22-02-6554 haemophilus influenzae type b vaccine, PRP-T conjugateM[facility]etta [facility]opathic Clinic, MI25-86-3837lhbyrpjzud vaccine, inactivatedM[facility]etta [facility], BH50-46-6453kmydjvs, mumps and rubella virus vaccineOur Lady of Mercy Hospital, YZ20-07-9451kcsxmvuhn virus vaccineM[facility]etta [facility] Clinic, UL64-97-4630dsrdngiew B vaccine, pediatric or pediatric/adolescent dosageM[facility], GZ58-31-4220pmbsjmaend, tetanus toxoids and acellular pertussis vaccineM[facility]etta [facility]opathic Clinic, PQ50-64-3300 haemophilus influenzae type b vaccine, PRP-T conjugateM[facility]etta [facility], XL36-44-0582vgvctnqeqk, tetanus toxoids and acellular pertussis vaccineMarietta [facility]opathic Clinic, CS03-37-6347ycydeuejbxt influenzae type b vaccine, PRP-T conjugateM[facility]etta [facility], ZT00-13-1881 poliovirus vaccine, inactivatedM[facility]etta [facility]opathic Clinic, UW80-31-2037 haemophilus influenzae type b vaccine, PRP-T conjugateM[facility]etta [facility]opathic Clinic, ZA36-09-5229mcjpczmosd vaccine, inactivatedMarietta Osteopathic Clinic, XP27-85-8300odmmxvifvh, tetanus toxoids and acellular pertussis vaccineUniversity Hospitals Cleveland Medical Center03-18-1999hepatitis B vaccine, pediatric or pediatric/adolescent [facility], VC16-67-9300 hepatitis B vaccine, pediatric or pediatric/adolescent dosageAshlandna [facility], [place] Payers DatePayer CategoryPayerPolicy [id number] SPECIALTY BILLING [facility] [id number] 2022-Present [address] [facility] [place] [address] [id number] Health InsuranceMEDICAL MUTUAL Member Subscriber Plan / Payer (Effective 2022-Present) Name: Vinny Downey Relation to Subscriber: Spouse Name: Abhishek Downey Date of : 1996 Address: [address] [place] [id number] Payer ID: Not on file Type: Not on file Address: [facility] [address] [place] [id number] [id number] 2.1.525779.3.57[id number] 2.1.150753.3.57[id number] 2.1.845433.3.579.[id number] 2..1.010367.3.579.2.10765-47-9276Mkeypzc0006479 2..1.616221.3.579.2.84555-76-2117Zungdsa7773971 2.0.1.007383.3.57[id number] 2.16.840.1.065441.3.579.2.81663-47-8310Snjrpbk7475460 2.16.840.1.470951.3.579.2.77547-65-9658Ozrmcit1724408 2.16.840.1.103370.3.579.2.19692-24-9541Desyhbq0416243 2.16.840.1.195451.3.579.2.70512-73-5878Tvcceqm2990796 2.16.840.1.017443.3.579.2.15702-64-7930Bgmhshy6426570 2.16.840.1.627505.3.579.2.01463-92-9691Ikmkuox1083663 2.840.1.795937.3.579.2.01378-56-4077Osodihq1619822 2.16.840.1.826647.3.579.2.20772-94-1658Cgkimyr6591402 2.16.840.1.858891.3.579.2.12563-70-8656Wpxzyer6237770 2.16.840.1.609460.3.579.2.32280-43-5927Xyvmqis2902118 2.16.840.1.534144.3.579.2.70685-36-0538Ofiohdj8299401 2.16.840.1.977734.3.579.2.6[id number] 2.16.840.1.665666.3.579.2.16905-33-4563Lylvwgi23561041 2.16.840.1.601417.3.579.2.10214-35-5197Qbxdrfo08567405 2.16.840.1.449453.3.579.2.11413-94-2869Bnqbufq13781256 2.840.1.109729.3.579.2.80286-88-2353Rqbvhvz01490084 2.840.1.234715.3.57[id number] 2.840.1.477396.3.579.2.154040-76-3667Kttqeqh49424667 2.840.1.728237.3.579.2.278785-11-4602Rrnmcmb63522791 2..1.907204.3.579.2.760398-31-0728Gacbjwr26907634 2..1.864272.3.579.2.410585-98-2162Lmadgjo55047982 2..1.472051.3.579.2.688438-84-7485Lucuibm04700713 2..1.246903.3.579.2.929475-26-4621Yakxybe34251174 2..1.395289.3.579.2.322468-68-1938Tdgnhzv97363238 2..1.257510.3.579.2.935231-25-8313Hsnlhpw05696460 2..1.758131.3.579.2.288092-14-6729Hmopheq31764003 2.0.1.002270.3.579.2.105904-26-5986Qjkgquq88169490 2.840.1.698217.3.579.2.718778-05-8420Pwgeosa1882805 2.840.1.533119.3.579.2.575793-33-1879Aifngfm8226145 2.840.1.645258.3.579.2.063225-11-0375Kqscxui2612926 2.16.840.1.712906.3.579.2.817695-92-5019Ollglfa0305655 2.16.840.1.129538.3.579.2.014037-34-0258Asky-bbx72-50-6398JglfuerGSKPA9503344 1.2.840.638212.1.13.239.2.7.3.177412.94773-26-6534Dlqjitj01245303603657-00-3091 Tjbsqjz862163095885Nggulcm8431018 2.16.840.1.768121.3.579.2.593 Social History DateTypeDetailFacilityStart: 03-03-2020 End: 20-07-5030Qoxqydw smoking status [facility] End: 80-94-5819Akxjabs use and exposureNever usedSalem [facility]: 03-[facility]-2020 End: 68-91-7561Fenctld intakeCurrent drinker of alcohol (finding)[facility]: 25-43-4824Qjwxcna CommentsocialSalem City Hospital: 59-84-6852Qtz Assigned At BirthNot on [facility]: 05-01-2020 End: 91-44-9258Okrfiks SDOH Tpnhcavvg3MzosaSalem City Hospital: 05-01-2020 End: 27-29-5695Cuvslmh SDOH Food Idaut3AzzypSalem City Hospital: 05-01-2020 History SDOH Transport Sxx1Ndj[address] [place], [place] [address]Exposure to SARS-CoV-2 (event)Not sureUniversity [facility]als [facility]: 05-01-2024 End: 85-34-3977Jaztjeowr beverage intakeEx-drinker (finding)[facility]: 05-01-2024 End: 74-21-6178Bqhqbwf of Social functionBon [facility]: 05-01-2024 End: 67-26-7579Barecml use panelBon Secours Mary Immaculate HospitalStart: 25-11-8493Abp hard is it for you to pay for the very basics like food, housing, medical care, and heatingNot hard at allBon [facility](I/We) worried whether (my/our) food would run out before (I/we) got money to buy more.Never trueBon [facility] SitesimonSentara Williamsburg Regional Medical CenterStart: 34-21-0450Zdx assigned at birthFemaleBon [facility] HospitalStart: 76-15-2155Njzfhg identityIdentifies as female gender (finding)[facility] HospitalEDUSSentara Williamsburg Regional Medical CenterStart: 07-05-2023 End: 12-38-9320Trwowhnjn beverage intakeLifetime non-drinker (finding)[facility] HealthcareStart: 51-36-0223SwbivzytzXZKW HealthcareHas the electric, gas, oil, or water company threatened to shut off services in your home in past 12MoNoBon [facility] SitesimonSentara Williamsburg Regional Medical CenterStart: 73-92-3263LneZpzdyd (finding)[facility] SitesimonSentara [facility] Medical Equipment Procedure CodeEquipment CodeEquipment Original TextEquipment IdentifierDatesUse as [id number]: 01-15-2025 End: 35-52-7467Fqfjex 1 each under the skin [id number]: 04-07-2025 End: 07-16-2025 Goals DatePatient GoalDesired Activity/StatePersonal health goal Clinical Notes 03-20-2023 to 05-28-2025 Note Date & DjcaVmipRbwdvdie63-89-4793 History of Present illness Narrative* JOSEPH Bowie - 05/28/2025 2:30 PM EST [...] Frequent UTI 11/30/2020 23 weeks gestation of ([facility]) 02/26/2025 Elevated blood sugar level 02/26/2025 [...] nursing note reviewed. Exam conducted with a roof bolter present. Vitals: Estimated body mass index is 38.38 kg/m as calculated from the following: Height as of 01/30/23: 5' 6 . Weight as of this encounter: 237 lb 12.8 oz. BP: 120/80 Patient's last menstrual period was 09/16/2024. Assessment/Plan ICD-10-CM 1. Third trimester ([facility]) Z34.93 CULTURE, GROUP B STREP WITH SUSCEPTIBLITY CULTURE, GROUP B STREP WITH SUSCEPTIBLITY 2. 36 weeks gestation of ([facility]) Z3A.36 POCT urinalysis dipstick manually resulted Patient [...] behalf of: JOSEPH Bowie documented in this encounterLakeland Regional HospitalAwhejncrib57-29-2943 History of Present illness Narrative* Criselda Aguirre [...] Frequent UTI 11/30/2020 23 weeks gestation of ([facility]) 02/26/2025 Elevated blood sugar level 02/26/2025 [...] nursing note reviewed. Exam conducted with a roof bolter present. Vitals: Estimated body mass index is [...] of: Mukul Foy DO documented in this encounterLakeland Regional HospitalGgvltdrbut98-30-8595 History of Present illness Narrative* Ceasar Li [...] Frequent UTI 11/30/2020 23 weeks gestation of ([facility]) 02/26/2025 Elevated blood sugar level 02/26/2025 [...] nursing note reviewed. Exam conducted with a roof bolter present. Vitals: Estimated body mass index is 36.7 kg/m as calculated from the following: Height as of 01/30/23: 5' 6 . Weight as of this encounter: 227 lb 6.4 oz. BP: 110/70 Patient's last menstrual period was 09/16/2024. ASSESSMENT & PLAN ICD-10-CM 1. Third trimester ([facility]) Z34.93 2. 32 weeks gestation of ([facility]) Z3A.32 POCT urinalysis dipstick manually resulted [...] of: Ceasar Li NP documented in this encounterLakeland Regional HospitalQqrkgyfcok07-09-6446 History of Present illness Narrative* JOSEPH Bowie [...] Frequent UTI 11/30/2020 23 weeks gestation of ([facility]) 02/26/2025 Elevated blood sugar level 02/26/2025 [...] ASSESSMENT & PLAN ICD-10-CM 1. Third trimester ([facility]) Z34.93 POCT urinalysis dipstick manually resulted 2. 30 weeks gestation of ([facility]) Z3A.30 Return OB: Patient presents today [...] behalf of: JOSEPH Bowie documented in this encounterLakeland Regional HospitalEpzhbxsgmh01-14-3193 History of Present illness Narrative* JOSEPH Bowie [...] Frequent UTI 11/30/2020 23 weeks gestation of ([facility]) 02/26/2025 Elevated blood sugar level 02/26/2025 [...] PLAN ICD-10-CM 1. 28 weeks gestation of ([facility]) Z3A.28 POCT urinalysis dipstick manually resulted US OB follow up transabdominal approach US biophysical profile w non stress test 2. Third trimester ([facility]) Z34.93 POCT urinalysis dipstick manually resulted US OB follow up transabdominal approach US biophysical profile w non stress test 3. Dizziness R42 CBC and differential CBC and differential 4. Gestational diabetes mellitus (GDM), antepartum, gestational diabetes method of control unspecified ([facility]) O24.419 US OB follow up transabdominal [...] behalf of: JOSEPH Bowie documented in this encounterLakeland Regional HospitalPtwklnkrmt44-72-5859 History of Present illness Narrative* Mukul Foy [...] Frequent UTI 11/30/2020 23 weeks gestation of ([facility]) 02/26/2025 Elevated blood sugar level 02/26/2025 Resolved Ambulatory Problems Diagnosis Date Noted Missed period 01/13/2023 Past Medical History: Diagnosis Date GDM (gestational diabetes mellitus) ([facility]) No family history on file. Social [...] nursing note reviewed. Exam conducted with a roof bolter present. Vitals: Estimated body mass index is 36.12 kg/m as calculated from the following: Height as of 01/30/23: 5' 6 . Weight as of this encounter: 223 lb 12.8 oz. BP: 100/70 Patient's last menstrual period was 09/16/2024. Assessment/Plan Encounter Diagnosis: ICD-10-CM 1. 25 weeks gestation of ([facility]) Z3A.25 POCT urinalysis dipstick manually resulted 2. Second trimester ([facility]) Z34.92 POCT urinalysis dipstick manually resulted [...] of: Mukul Foy DO documented in this encounterLakeland Regional HospitalDiucnqcwno80-91-3164 History of Present illness Narrative* Ceasar Li [...] Frequent UTI 11/30/2020 23 weeks gestation of ([facility]) 02/26/2025 Elevated blood sugar level 02/26/2025 [...] nursing note reviewed. Exam conducted with a roof bolter present. Vitals: Estimated body mass index is 35.96 kg/m as calculated from the following: Height as of 01/30/23: 5' 6 . Weight as of this encounter: 222 lb 12.8 oz. BP: 110/70 Patient's last menstrual period was 09/16/2024. ASSESSMENT & PLAN ICD-10-CM 1. 23 weeks gestation of ([facility]) Z3A.23 POCT urinalysis dipstick manually resulted [...] of: Mukul Foy DO documented in this encounterLakeland Regional HospitalKtdqsiuqyb91-08-8876 History of Present illness Narrative* JOSEPH Bowie [...] ASSESSMENT & PLAN ICD-10-CM 1. Second trimester ([facility]) Z34.92 metFORMIN XR (Glucophage-XR) 500 MG 24 hr tablet POCT urinalysis dipstick manually resulted 2. 20 weeks gestation of ([facility]) Z3A.20 metFORMIN XR (Glucophage-XR) 500 [...] of: Mukul Foy DO documented in this encounterLakeland Regional HospitalHbbidwnyfh28-42-9682 History of Present illness Narrative* Criselda Aguirre [...] nursing note reviewed. Exam conducted with a roof bolter present. Vitals: Estimated body mass index is 34.19 kg/m as calculated from the following: Height as of 01/30/23: 5' 6 . Weight as of this encounter: 211 lb 12.8 oz. BP: 118/72 Patient's last menstrual period was 09/16/2024. ASSESSMENT & PLAN ICD-10-CM 1. Second trimester ([facility]) Z34.92 Alpha fetoprotein, maternal Alpha fetoprotein, maternal 2. 17 weeks gestation of ([facility]) Z3A.17 Alpha fetoprotein, maternal Alpha fetoprotein, maternal 3. Vaginal discharge N89.8 SURESWAB(R) ADVANCED VAGINITIS PLUS, TMA 4. STD exposure Z20.2 CHLAMYDIA TRACHOMATIS (GENITO/STI) Neisseria gonorrhea DNA probe, direct 5. Screening, , for anatomic survey ([facility]) Z36.89 US OB 14+ weeks anatomy scan 6. Gastroesophageal reflux in ([facility]) O99.619 omeprazole (PriLOSEC) [address] capsule K21.9 7. Gestational diabetes mellitus (GDM), antepartum, gestational diabetes method of control unspecified ([facility]) O24.419 glucose blood test strip Return [...] Criselda Aguirre LPN on behalf of: virgil barton pac documented in this encounterLakeland Regional HospitalOvpaodtnsk23-96-5836 History of Present illness Narrative* JOSEPH Bowie [...] Documented by JOSEPH Bowie documented in this encounterLakeland Regional HospitalTqlipnigyp61-38-7402 History of Present illness Narrative* Elizabeth Ware [...] Nurse Note: Patient uncertain of doing the [place] screening. Pt was advised both labs and [...] or undercooked meat, and stay away from [facility]. Patient has also been advised to not [...] by: Elizabeth Ware MA documented in this encounterLakeland Regional HospitalSgpgyplnaz25-56-7852 History of Present illness Narrative* Elizabeth Ware [...] nursing note reviewed. Exam conducted with a roof bolter present. Vitals: Estimated body mass index is [...] of: Mukul Foy DO documented in this encounterLakeland Regional HospitalHnlmtdpeni86-98-5606 NoteHNO ID: [id number] Author: LANG CARREON APRN.REMANUFACTURING TECHNICIAN Service: ? Author Type: Nurse Practitioner Type: Progress Notes Filed: 08/06/2023 10:44 Note Text: Telemedicine Visit - Distance Health Virtual Visit Note I have communicated my name and active licensure. The patient's identity and physical location were verified at the time of this visit. Either the patient or their legal automotive sales representative has been informed of the risks and benefits of -- and alternatives to -- treatment through a remote evaluation and consents to proceed with the evaluation remotely. Patient seen on virtual platforms, [employer]. Location of patient: [place] History of Presenting Illness: Vinny Downey 22 [...] - Sleep with head elevated due to wqed-nescf-njsv increases cough - Continue Flonase - Flonase: [...] care - All questions answered Lang Carreon APRN.[facility]12-19-2023 NoteUT Electrophysiology Consult Note Reason for [...] recent labs Rajendra Sheffield MD Cardiac Electrophysiology [facility]oUn[facility]12-[facility]23 NotePatient here for follow up event monitor. Echo was not performed that was ordered at last apt in Feb 2023 by Israel Champion CNP. Does not notice palpitations as often. Denies chest pain, SOB, and lightheadedness. Review of Systems Cardiovascular: Positive for palpitations (less often). All other systems reviewed and are negative.[facility] 03-30-2023 Note-developed anemia s/p -hgb 10.8 per recent labsUnMary Rutan Hospital09-07-2023 Note- could be related to being , anemia -monitor and echo to rule out cardiac concernUnMary Rutan Hospital 03-30-2023 Note- takes sertraline 50 mg dailyUnMary [facility] Hospital 03-30-2023 Note- 30-day event monitor - we will hold off on starting medication until follow-upUnMary Rutan Hospital08-28-2023 NoteNew patient here to establish care. Ref from Dr. Foy for bradycardia. She is 8 weeks . Had ECG last week. Symptoms started after baby was born. She feels palpitations. Did lose a lot of blood with , requiring transfusion. Denies chest pain and SOB. Review of Systems Cardiovascular: Positive for palpitations. Neurological: Positive for headaches. All other systems reviewed and are negative.[facility] 03-20-2023 NoteUT Electrophysiology Consult Note Reason for [...] images are attached to (more content not included)...[facility]* Diagnosis Frequent UTI Urinary tract infection, site not specified documented in this encounter [employer] Phone: evalgicakl note* Diagnosis Amenorrhea Absence of menstruation documented in this encounter [employer] Phone: evaluation note* Diagnosis Elevated liver enzymes Nonspecific elevation of levels of transaminase or lactic acid dehydrogenase (LDH) Mixed hyperlipidemia documented in this encounter [facility] note* Diagnosis Well woman exam with routine gynecological exam Routine gynecological examination documented [facility] encounter [facility] InternetEvaluation note* Diagnosis Missed menses 8 weeks gestation of , unspecified gestational age Encounter for supervision of normal first in first trimester History of miscarriage Personal history of other genital system and obstetric disorders documented in this encounter [facility] note* Diagnosis Second trimester state, incidental 12 weeks gestation of Subchorionic hematoma in first trimester, single or unspecified fetus Diabetes mellitus screening Screening for diabetes mellitus documented in this encounter [facility]* Diagnosis Subchorionic hematoma, antepartum, first trimester, not applicable or unspecified fetus documented in this encounter [facility] note* Diagnosis Second trimester ([facility]) state, incidental 17 weeks gestation of ([facility]) Vaginal discharge Leukorrhea, not specified as infective STD exposure Screening, , for anatomic survey ([facility]) Encounter for anatomic survey Gastroesophageal reflux in ([facility]) Gestational diabetes mellitus (GDM), antepartum, gestational diabetes method of control unspecified([facility]) documented [facility] encounter [facility]* [...] antepartum, gestational diabetes method of control unspecified([facility]) History of miscarriage Personal history of other [...] control unspecified([facility]) documented in this encounter [facility]* Diagnosis Third trimester ([facility]) state, incidental 36 weeks gestation of ([facility]) documented in this encounter [facility] HealthcareReason for visit Narrative* Imaging (Routine) - OpenSpecialty Diagnoses / ProceduresReferred By ContactReferred To ContactRadiology Diagnoses Subchorionic hematoma, antepartum, first trimester, not applicable or unspecified fetus Procedures US OB LESS THAN 14 WEEKS SINGLE OR FIRST GESTATION W DOPPLER US OB TRANSVAGINAL Mukul Foy MD [address] [place] [address] Phone: tel: Referral IDStaGladys DateExpiration DateVisits RequestedVisits [id number]/29/[id number] [facility] Diagnosis Screening for cervical cancer Screening for malignant neoplasm of the cervix Encounter for annual routine gynecological examination Diagnosis Encounter for screening for HIV Other fatigue Wellness examination Advance Directives No Advanced Directives Records FoundDocuments on File TypeDate RecordedPatient RepresentativeExplanationAdvance Directives and Living WillPower of AttorneyTypeDate RecordedPatient RepresentativeExplanationACP- Advance DirectiveACP-Power of AttorneyTypeDate RecordedPatient Machine Repairer ExplanationACP-Advance DirectiveACP-Power of Private Household Worker Summary Purpose Family History No Family History Records FoundNo Family History Records FoundNo Family History Records FoundNo Family History Records FoundNo Family History Records FoundNo Family History Records FoundNo Family History Records Found Reason for Referral StatusReasonSpecialtyDiagnoses / ProceduresReferred By ContactReferred To ContactClosedRadiology Diagnoses Frequent UTI Procedures US RENAL COMPLETE Lorena Ricks, WATCH CASE POLISHER - REMANUFACTURING TECHNICIAN [address] [place] [address] Additional Source Comments INFORMATION SOURCE (unrecogn ized section and content) DATE CREATED AUTHOR 10/14/2020 [facility] DATE CREATED AUTHOR AUTHOR'S ORGANIZ ATION 09/26/2021 [facility] DATE CREATED AUTHOR AUTHOR'S ORGANIZ ATION 12/30/2022 [facility] DATE CREATED AUTHOR AUTHOR'S ORGANIZ ATION 08/03/2023 [facility] DATE CREATED AUTHOR AUTHOR'S ORGANIZ ATION 08/07/2023 [facility] DATE CREATED AUTHOR AUTHOR'S ORGANIZ ATION 01/09/2025 [facility] DATE CREATED AUTHOR AUTHOR'S ORGANIZ ATION 05/30/2025 [facility] Reason for Visit (unrecogniz ed section and content) StatusReasonSpecialtyDiagnoses / ProceduresReferred By ContactReferred To ContactClosedRadiology Diagnoses Frequent UTI Procedures US RENAL COMPLETE Lorena Ricks, WATCH CASE POLISHER - REMANUFACTURING TECHNICIAN [address] [place] [address] ReasonCommentsGynecologic ExamReasonCommentsAmenorrheaReasonCommentsRoutine VisitReasonCommentsRoutine VisitSTI Screening Care Teams (unrecognized sec tion and content) Team MemberRelationshipSpecialtyStart DateEnd Date Ynes Rodriguez, WATCH CASE POLISHER - REMANUFACTURING TECHNICIAN [address] [place] [address] PCP - GeneralUnitypoint Health-Saint Luke'Sly Nurse Zrijgjfgcyhu73/12/20Team MemberRelationshipSpecialty Start DateEnd Date Ynes Rodriguez, WATCH CASE POLISHER - REMANUFACTURING TECHNICIAN [address] [place] [address] PCP - GeneralFawily Nurse Ojocufoviluv12/12/20Team MemberRelationshipSpecialty Start DateEnd Date Ynes Rodriguez, WATCH CASE POLISHER - [facility] [address] [place] [address] [address] [place] [address] PCP - Generalmily Nurse Practitioner08/02/22Te MemberRelationshipSpecialty Start DateEnd Date Ynes Rodriguez, WATCH CASE POLISHER [facility] [address] [place] [address] [address] [place] [address] PCP - GeneralFamily Nurse Practitioner08/02/22Team MemberRelationshipSpecialty Start DateEnd Date Ynes Rodriguez, WATCH CASE POLISHER - [facility] [address] [place] [address] PCP - GeneralFamily Nurse Practitioner08/02/22 FOR RECORDS [...] BE BASED ON THE PRIMARY CLINICAL RECORDS. [employer] [facility]. provides no warranty or guarantee of the accuracy or completeness of information in this document.
--- OUTSIDE RECORDS SUMMARY | 2025-05-31 09:09 | XMS_ITS | Encounter Summary ---
Author Organization [facility] Address [address] [place] [address] Care Team Providers Care Drama Critic Name Role Phone Unavailable Primary Care Provider Unavailabl e Encounter Details DateTypeDepartmentCare Team (Latest Contact Info)Zqikoeggfvr64/06/2025linisync Result Encounter [facility] External Department Unsolicited Britt Foy DO [address] [place] [address] Social History Tobacco UseTypesPacks/DayYears UsedDateSmoking Tobacco: NeverSmokeless Tobacco: NeverAlcohol UseStandard Drinks/WeekCommentsNever0 (1 standard drink = 0.6 oz pure alcohol)Estimated Date of RqnavvmsLceuexlbXnr94/01/2025Based on last menstrual period of 09/16/2024Sex and Gender InformationValueDate Recorded Sex Assigned at BirthNot on fileLegal OhjJtyexq59/15/2023 11:47 PM EDTGender IdentityNot on fileSexual OrientationNot on filedocumented as of this encounter Plan of Treatment DateTypeDepartmentCare Team (Latest Contact Info)Bykeoaxlxna89/10/2025 1:00 PM ESTRoutine [facility] [place] [facility] [address] [facility] [place] [phone] Britt Foy DO [address] [place] [address] 07/28/2025 4:00 PM ESTOffice Visit [facility] [place] [facility] [address] [place] [place] [phone] Britt Foy, DO [address] [place] [address] documented as of this encounter Goals GoalPatient Goal TypeAssociated ProblemsRecent ProgressPatient-Stated?Author Reminders Care PlanOB RemindersNoOpen Scheduling, Backgrounddocumented as of this encounter Procedures Procedure NamePriorityDate/TimeAssociated DiagnosisCommentsUS OB BPP W NON-FSALTX0505/29/2025 10:10 AM EST documented in this encounter Results * US OB BPP W NON-STRESS (05/29/2025 10:10 AM EST)Anatomical Region LateralityModalityOtherSpecimen (Source)Anatomical Location / Laterality Collection Method / VolumeCollection TimeReceived Time05/29/2025 10:10 AM EST Narrative 05/29/2025 10:13 AM EST [facility] ?[address] ? [place] [address] ? Ultrasound Report ? Signed ? Patient: VINNY HERRERA ?MR#: [id number] ?? : 2000 ?Acct:[id number] ?? Age/Sex: 24 / F ?ADM Date: 05/28/25 ?? Loc: US ? Attending Dr: Britt Foy D.O. ? Ordering Physician: Britt Foy D.O. ?? Date of Service: 05/28/25 ?? Procedure(s): US OB BPP w non-stress ?? Accession Number(s): [id number] ? cc: Britt Foy D.O.; Ynes Mistry NP ? [facility] ? [address] ? [place] [address] ? Patient Name: ?? VINNY HERRERA ? MRN: [facility]:[id number] ? date: 2000 ?Sex: F ?? Assigned Patient Location: US ?? Current Patient Location: US ?? Accession/Order Number: [id number] ?? Exam Date: 05/28/2025 ??16:05 ?Report Date: 05/29/2025 ??10:10 ? At the request of: ?? BRITT ??GALLO ??DO ? Procedure: ??US OB BPP w non-stress ? BIOPHYSICAL PROFILE: ? CLINICAL INFORMATION: Gestational diabetes mellitus ? There is a single live intrauterine gestation in cephalic presentation. ??The ?? reported gestational age is 36 weeks 2 days. ??The heart rate measures ?? 134 beats per minute. ? FINDINGS: ? TONE: 1 or more episodes of activity extension and flexion of ?? extremity or opening and closing of the hand ?[Y] ? 2/2 ?? GROSS BODY MOVEMENTS: 3 or more discrete body or limb movements ?[Y] ? 2/2 ?? BREATHING MOVEMENTS: 1 or more episodes of breathing lasting at ?? least 30 seconds ? [Y] ? 2/2 ?? JAMAL: A single deepest vertical pocket of amniotic fluid greater than 2 cm ? [Y] ? 2/2 ?JAMAL: 15.6 cm ? Total score: ? 8/8 ? US/US OB BPP w non-stress ?? IMPRESSION: ? NORMAL BIOPHYSICAL PROFILE ? Impression dictated by: Criselda Flores M.D. ??05/29/2025 10:10 AM ? Dictation Location: RADIO-PC-02 ? Electronically authenticated by: [id number] ??Y ?? Date: 05/29/2025 ??10:10 ? Dictated By: ?Criselda Flores M.D. ? Signed By: ?11/06/25 1013 ? DD/ 1010 ? TD/TT: ? Feeder Driver: Procedure Note Radiology, Radiologist, - 05/29/2025 [place] [address] Ultrasound Report Signed Patient: VINNY HERRERA CMR#: [id number] : 2000Acct:[id number] Age/Sex: 24 / FADM Date: 05/28/25 Loc: US Attending Dr: Britt Foy D.O. Ordering Physician: Britt Foy D.O. Date of Service: 05/28/25 Procedure(s): US OB BPP w non-stress Accession Number(s): [id number] cc: Britt Foy D.O.; Ynes Mistry NP The [address] [address] Patient Name: VINNY HERRERA MRN: [facility]:[id number] date: 2000 Sex: F Assigned Patient Location: US Current Patient Location: US Accession/Order Number: [id number] Exam Date: 05/28/2025 16:05 Report Date: 05/29/2025 10:10 At the request of: BRITT FOY DO Procedure: US OB BPP w non-stress BIOPHYSICAL PROFILE: CLINICAL INFORMATION: Gestational diabetes mellitus There is a single live intrauterine gestation in cephalic presentation.The reported gestational age is 36 weeks 2 days. The heart ratemeasures 134 beats per minute. FINDINGS: TONE: 1 or more episodes of activity extension and flexion of extremity or opening and closing of the hand [Y] 2/2 GROSS BODY MOVEMENTS: 3 or more discrete body or limb movements [Y] 2/2 BREATHING MOVEMENTS: 1 or more episodes of breathing lastingat least 30 seconds [Y] 2/2 JAMAL: A single deepest vertical pocket of amniotic fluid greater than 2 cm [Y] 2/2 JAMAL: 15.6 cm Total score: 8/8 US/US OB BPP w non-stress IMPRESSION: NORMAL BIOPHYSICAL PROFILE Impression dictated by: Criselda Flores M.D. 05/29/2025 10:10 AM Dictation Location: [place] [address] Electronically authenticated by: [id number] Y Date: 0:10 Dictated By: Criselda Flores M.D. Signed By:05/29/25 1013 DD/ 1010 TD/TT: Feeder Driver: Authorizing ProviderResult TypeResult StatusCorevicki Foy DOCLINISYNC IMAGINGFinal Result documented in this encounter Visit Diagnoses Not on filedocumented in this encounter Additional Health Concerns Active ProblemsNoted DateDiagnosed DateOB Eybjeqrsz30/09/2025 documented as of this encounter
--- OUTSIDE RECORDS SUMMARY | 2025-05-31 09:09 | XMS_ITS | Encounter Summary ---
Author Organization [facility] Address [address], [address] [place] [address] Care Team Providers Care Safety Investigator Name Role Phone Ynes Mistry DATA KEYER - MARBLE SETTER Primary Care Provide r Reason for Visit * ReasonCommentsMedication Refill Encounter Details DateTypeDepartmentCare Team (Latest Contact Info)Pfrwauzkzsq55/05/2025[facility] [address] [place] [address] [address] [place] [address] Ynes Mistry DATA KEYER - MARBLE SETTER [address] [place] [address] Dr [address]WA[address] [place] [id number] Medication Refill Social History Tobacco UseTypesPacks/DayYears UsedDateSmoking Tobacco: NeverSmokeless Tobacco: NeverAlcohol UseStandard Drinks/WeekCommentsNot Currently0 (1 standard drink = 0.6 oz pure alcohol)socialAH UtilitiesAnswerDate RecordedIn the past 12 months has the electric, gas, oil, or water [employer] threatened to shut off services in your home?No10/07/2024Overall Financial Resource Strain (CARDIA)AnswerDate RecordedHow hard is it for you to pay for the very basics like food, housing, medical care, and heating?Not hard at all07/13/2023HQ-2AnswerDate RecordedPHQ-9 Total Tyvyz531Hunger Vital SignAnswerDate RecordedWithin the past 12 months, [...] steady place to sleep or slept in [facility] (including now)?No07/13/2023Housing Stability Vital SignAnswerDate RecordedIn the last 12 months, was there a time when you were not able to pay the mortgage or rent on time?No10/07/2024In the past 12 months, how many times have you moved where you were living? At any time in the past 12 months, were you homeless or living in a fdc (including now)?No10/07/2024Food InsecurityAnswerDate RecordedWithin the past 12 months, you worried that your food would run out before you got the money to buy more.Within the past 12 months, the food you bought just didn't last and you didn't have money to get more.CommentsNoSex and Gender InformationValueDate RecordedSex Assigned at QxeazMqzwkv44/28/2024 8:24 PM EDTLegal MfaTzpblw91/10/2013 3:31 PM ESTGender PntznlfxHaxknh76/28/2024 8:24 PM EDTSexual OrientationNot on filedocumented as of this encounter Plan of Treatment Not on file documented as of this encounter Visit Diagnoses Not on filedocumented in this encounter Care Teams Team MemberRelationshipSpecialtyStart DateEnd Date Ynes Mistry, DATA KEYER - MARBLE SETTER [address] [place] [address] PCP - GeneralFamily Nurse Practitioner08/02/22documented as of this encounter
--- OUTSIDE RECORDS SUMMARY | 2025-05-31 09:09 | XMS_ITS | Encounter Summary ---
Author Organization [facility] Address [address] [place] [address] Care Team Providers Care Billet Checker Name Role Phone Unavailable Primary Care Provider Unavailabl e Encounter Details DateTypeDepartmentCare Team (Latest Contact Info)Ohjkdidyufc40/29/2025linisync Result Encounter [facility] External Department Unsolicited Britt Foy DO [address] [place], [place] [phone] Social History Tobacco UseTypesPacks/DayYears UsedDateSmoking Tobacco: NeverSmokeless Tobacco: NeverAlcohol UseStandard Drinks/WeekCommentsNever0 (1 standard drink = 0.6 oz pure alcohol)Estimated Date of VigjgwnpCkpdkfksXwy84/01/2025Based on last menstrual period of 09/16/2024Sex and Gender InformationValueDate Recorded Sex Assigned at BirthNot on fileLegal VtmGevpjf96/15/2023 11:47 PM EDTGender IdentityNot on fileSexual OrientationNot on filedocumented as of this encounter Plan of Treatment DateTypeDepartmentCare Team (Latest Contact Info)Xphtvdsfutv16/10/2025 1:00 PM ESTRoutine [facility]zo [place] [facility] [address] [place] [phone] Britt Foy DO [address] [place] [address] 07/28/2025 4:00 PM ESTOffice Visit [facility] [place] [facility] [address] [place] [phone] Britt Foy, DO [address] [facility] [place] [address] documented as of this encounter Goals GoalPatient Goal TypeAssociated ProblemsRecent ProgressPatient-Stated?Author Reminders Care PlanOB RemindersNoOpen Scheduling, Backgrounddocumented as of this encounter Procedures Procedure NamePriorityDate/TimeAssociated DiagnosisCommentsUS OB BPP W NON-ZMOOTS8905/21/2025 7:56 PM EDT documented in this encounter Results * US OB BPP W NON-STRESS (05/21/2025 7:56 PM EDT)Anatomical Region LateralityModalityOtherSpecimen (Source)Anatomical Location / Laterality Collection Method / VolumeCollection TimeReceived Time05/21/2025 7:56 PM EDT Narrative 05/21/2025 7:59 PM EDT [facility] ?[address] ? [place] [address] ? Ultrasound Report ? Signed ? Patient: VINNY HERRERAIA Ericka ?MR#: [id number] ?? : 2000 ?Acct:[id number] ?? Age/Sex: 24 / F ?ADM Date: 05/21/25 ?? Loc: US ? Attending Dr: Britt Foy D.O. ? Ordering Physician: Britt Foy D.O. ?? Date of Service: 05/21/25 ?? Procedure(s): US OB BPP w non-stress ?? Accession Number(s): [id number] ? cc: Britt Foy D.O.; Ynes Mistry NP ? [facility] ? [address] ? [place] [address] ? Patient Name: ?? VINNY HERRERA ? MRN: [id number] ? date: 2000 ?Sex: F ?? Assigned Patient Location: [facility] ?? Current Patient Location: ? Accession/Order Number: [id number] ?? Exam Date: 05/21/2025 ??16:12 ?Report Date: [...] Dictation Location: RADIO-PC-29 ? Electronically authenticated by: [id number] ??Y ?? Date: 05/21/2025 ??19:56 ? Dictated By: ?Chevy Moreland M.D. ? Signed By: ?05/21/251958 ? DD/ 55 ? TD/TT: ? Automotive Welder: Procedure Note Radiology, Radiologist, - 05/21/2025 [place] [address] Ultrasound Report Signed Patient: VINNY HERRERA CMR#: [id number] : 2000Acct:[id number] Age/Sex: 24 / FADM Date: 05/21/25 Loc: US Attending Dr: Britt Foy D.O. Ordering Physician: Britt Foy D.O. Date of Service: 05/21/25 Procedure(s): US OB BPP w non-stress Accession Number(s): [id number] cc: Britt Foy D.O.; Ynes Mistry PRODUCT FINISHER The [place] [id number] Patient Name: VINNY HERRERA MRN: [id number] date: 2000 Sex: F Assigned Patient [facility]: [facility] Current Patient Location: Accession/Order Number: [id number] Exam Date: 05/21/2025 16:12 Report Date: 05/21/2025 19:56 At the request of: BRITT FOY DO Procedure: US OB BPP w non-stress Ultrasound biophysical profile INDICATION: Gestational diabetes COMPARISON: 05/07/2025 FINDINGS/IMPRESSION:: Fetus cephalic position. 8/8 score biophysical profile. heart rate 139 beats per minutes. JAMAL 19.1 cm . Impression dictated by: Chevy Moreland M.D. 05/21/2025 7:56 PM Dictation Location: [place] [address] Electronically authenticated by: [id number] Y Date: 9:56 Dictated By: Chevy Moreland M.D. Signed By:05/21/251958 DD/ 55 TD/TT: Automotive Welder: Authorizing ProviderResult TypeResult StatusCorey Law DOCLINISYNC IMAGINGFinal Result documented in this encounter Visit Diagnoses Not on filedocumented in this encounter Additional Health Concerns Active ProblemsNoted DateDiagnosed DateOB Vwaamvein65/09/2025 documented as of this encounter
--- OUTSIDE RECORDS SUMMARY | 2025-05-31 09:09 | XMS_ITS | Encounter Summary ---
Author Organization [facility] Address [address] [place] [address] Care Team Providers Care Seamstress Fitter Name Role Phone Unavailable Primary Care Provider Unavailabl e Encounter Details DateTypeDepartmentCare Team (Latest Contact Info)Crqleimoimm85/06/2025Telephone [facility] [place] [facility] [address] [place], [phone] Mukul Foy DO [address] [facility] [address] [place] [address] Social History Tobacco UseTypesPacks/DayYears UsedDateSmoking Tobacco: NeverSmokeless Tobacco: NeverAlcohol UseStandard Drinks/WeekCommentsNever0 (1 standard drink = 0.6 oz pure alcohol)Estimated Date of OnkktkdxBamyketkWub55/01/2025Based on last menstrual period of 09/16/2024Sex and Gender InformationValueDate Recorded Sex Assigned at BirthNot on fileLegal DikMokgfn63/15/2023 11:47 PM EDTGender IdentityNot on fileSexual OrientationNot on filedocumented as of this encounter Miscellaneous Notes * Telephone Encounter - Carola France LPN - 05/29/2025 11:58 AM EST Patient and left a voicemail asking if she does need to keep her appointment for next week as she is due to have section on 06/09/2025. Patient call was returned after speaking with Ivonne and was advised she will need to keep appointment so she can sign her consents and that she can call partners to schedule that appointment and get her washes that are needed. PVU and states that she will keep appointment and will call to schedule that. documented in this encounter Plan of Treatment DateTypeDepartmentCare Team (Latest Contact Info)Aqzvqfifhln81/10/2025 1:00 PM ESTRoutine NOMRenzo SANTO [address] [place] [address] [place] [phone] Mukul Foy, DO [address] [facility] [address] [place] [address] 07/28/2025 4:00 PM ESTOffice Visit DIANE SANTO [address] [place] [address] [place] [phone] Mukul Foy, DO [address] [facility] [address] [place] [address] documented as of this encounter Goals GoalPatient Goal TypeAssociated ProblemsRecent ProgressPatient-Stated?Author Reminders Care PlanOB RemindersNoOpen Scheduling, Backgrounddocumented as of this encounter Visit Diagnoses Not on filedocumented in this encounter Additional Health Concerns Active ProblemsNoted DateDiagnosed DateOB Qslnbiord79/09/2025 documented as of this encounter
--- OUTSIDE RECORDS SUMMARY | 2025-05-31 09:09 | XMS_ITS | Clinical Summary ---
Author Organization [facility] Address [address] [place], [place] [phone] Care Team Providers Care Associate Teacher Name Role Phone Unavailable Primary Care Provider Unavailabl e Allergies No known active allergies Medications MedicationSigDispense QuantityRefillsLast FilledStart DateEnd DateStatus benzonatate (TESSALON PERLE) 100 mg capsule Take 1-2 capsules every 8 hours as needed. 60 capsule 4Active Active Problems No known active problems Social History Tobacco UseTypesPacks/DayYears UsedDateSmoking Tobacco: Never Assessed CommentsUnknownSex and Gender InformationValueDate RecordedSex Assigned at Not on fileLegal YlfYvmprq79/14/2024 10:20 AM ESTGender IdentityNot on file Sexual OrientationNot on file Plan of Treatment Health MaintenanceDue DateLast DoneCommentsPeds To Adult Transition Initial Cypwqnseld93/17/2011Peds To Adult Transition Annual Migeczrvtn75/17/2013nxiety Sdugmmoxh43/17/2017Depression Glouqbfmj83/17/2017HIV Usjltzhes54/17/2017 Hepatitis C Skdxczbza79/17/2017Cervical Cancer Kmxetetis31/17/2020DTaP,Tdap,Td Vaccine (7 - Td or Tdap), 11/20/2003, 03/13/2000, Additional history existsCovid-19 Vaccine ( season)/02/2021, 12/07/2020Influenza Vaccine (#1)2025Hepatitis B VaccineCompleted 06/09/1999, 2000, 2000HPV VvqrkwnQrbqcmacd35/28/2018, 05/01/2017, 02/24/2017 Insurance
--- OUTSIDE RECORDS SUMMARY | 2025-05-31 09:09 | XMS_ITS | Clinical Summary ---
Author Organization [facility] Address [address] [place] [address] Care Team Providers Care Analytical Chemistry Teacher Name Role Phone Unavailable Primary Care Provider Unavailabl e Allergies No known active allergies Medications MedicationSigDispense QuantityRefillsLast FilledStart DateEnd DateStatus sertraline (Zoloft) 50 MG tablet Indications:Anxiety, generalizedTAKE 1 TABLET BY MOUTH EVERY DAY IN THE MORNING 30 tablet 304/5Active glucose blood test strip Indications:Gestational diabetes mellitus (GDM), antepartum, gestational diabetes method of control unspecified([facility])Use as instructed 100 each 1206//294243/6Active metFORMIN XR (Glucophage-XR) 500 MG 24 hr tablet Indications:Second trimester ([facility]),20 weeks gestation of ([facility])Take 2 tablets (1,000 mg) by mouth in the evening. Take with meals 60 tablet 507//157560/6Active pantoprazole (Protonix) 40 MG EC tablet Indications:23 weeks gestation of ([facility]),Elevated blood sugar level ,Gastroesophageal reflux disease without esophagitisTake 1 tablet (40 mg) by mouth in the morning. Take before meals. Do not crush, chew, or split. 30 tablet 1108//756094/6Active metoclopramide (Reglan) 10 MG tablet Indications:Gastroesophageal reflux disease without esophagitisTake 1 tablet (10 mg) by mouth in the morning and 1 tablet (10 mg) at noon and 1 tablet (10 mg) in the evening. Take before meals. Take 1 tablet by mouth 30 minutes prior to meals 3 times daily as needed for nausea. 90 tablet 5Active insulin pen needle 29G x 8mm [facility] Indications:Insulin controlled gestational diabetes mellitus (GDM) during , antepartum ([facility])Inject 1 each under the skin Daily [...] Problems ProblemNoted DateDiagnosed Date23 weeks gestation of ([facility]) 02/26/2025Elevated blood sugar level02/26/2025bnormal glucose level01/13/2023 Axmbjowei01/23/0408Xvlejzqvhdh49/23/2023Dyspareunia in mpoyng8911/30/2020Frequent UTI11/30/20203614Pzqxgwo92/07/2020Insomnia due to other mental /10/2020 Other pxaocvq0005/02/2020Estimated Date of GuoacbccPdktuyziKgr54/01/2025 Based on last menstrual period of 09/16/2024 Resolved Problems ProblemNoted DateDiagnosed DateResolved DateMissed / Encounters DateTypeDepartmentCare FlzrYiqsjjpxoqr34/07/2025Telephone [facility] [address] [facility] [address] Britt Foy DO 05/29/2025Telephone [facility] [address] [facility] [address] Britt Foy, DO 5Clinisync Result Encounter NOMS External Department Unsolicited Britt Foy, DO 05/28/2025 2:30 PM ESTRoutine [facility]i [facility] [address] [facility] [address] Regina Cummins PA Third trimester ([facility]); 36 weeks gestation of ([facility])05/28/2025 2:00 PM ESTAncillary Procedure [facility] Heri [address] [facility] [place] [address] Insulin controlled gestational diabetes mellitus (GDM) during , antepartum ([facility])5Clinisync Result Encounter NOMS External Department Unsolicited Britt Foy, DO 05/14/2025 2:50 PM EDTRoutine [facility] Heri [address] [facility] [place] [address] Britt Foy, Third trimester ([facility]); 34 weeks gestation of ([facility]); Insulin controlled gestational diabetes mellitus (GDM) during , antepartum ([facility]); Gestational diabetes mellitus (GDM), antepartum, gestational diabetes method of control unspecified([facility])05/14/2025amboo flowsheet [facility]i [facility] [address] [facility] [address] Britt Foy, DO 5Abstract [facility]i [facility] [address] [facility] [place] [address] Britt Foy, DO 04/30/2025 3:00 PM EDTRoutine [facility] Heri [facility]ANT[facility] [address] [facility] [place] [phone] Tiffany Li, ASHWIN Third trimester ([facility]); 32 weeks gestation of ([facility])5Clinisync Result Encounter NOMS External Department Unsolicited Britt Foy, DO 04/30/2025amboo flowsheet [facility] [address] [facility] [place] [phone] Tiffany Li NP 04/27/20255922Cnxnex26/23/2025bstract [facility] [place] [facility] [address] [facility] [place] [address] Britt Foy, 04/14/2025 3:20 PM EDTRoutine [facility] [address] [facility] [address] [place] [phone] Regina Cummins PA Third trimester ([facility]); 30 weeks gestation of ([facility])04/14/2025amboo flowsheet [facility] [place] [facility] [address] [facility] [place] [address] Regina Cummins PA 04/14/20253227Qmykcq86/15/2025Telephone [facility] [address] [facility] [address] [place] [address] Elizabeth Ware MA 04/05/2025linisync Result Encounter NOMS External Department Unsolicited Regina Cummins PA 04/05/2025linisync Result Encounter NOMS External Department Unsolicited Regina Cummins PA 04/03/2025 3:30 PM EDTRoutine [facility] [place] [facility] [address] [facility] [address] [place] [phone] Regina Cummins PA 28 weeks gestation of ([facility]); Third trimester ([facility]); Dizziness; Gestational diabetes mellitus (GDM), antepartum, gestational diabetes method of control unspecified([facility]); History of miscarriage; Anemia, unspecified type; UTI pbzrejyv81/11/2025amboo flowsheet [facility] [place] [facility] [address] [facility] [address] [address] Regina Cummins PA 04/02/2025Telephone [facility] [place] [facility] [address] [facility] [address] [place] [phone] Yasemin SuyapaYOVANA pham 04/01/20257914Aefewt37/21/2025bstract [facility] [address] [facility] [address] [place] [address] Britt Foy, 03/12/2025 3:50 PM EDTRoutine [facility] [address] [facility] [address] [place] [address] Britt Foy, 25 weeks gestation of ([facility]); Second trimester ([facility]); Gastroesophageal reflux disease without qhhjuagnqak38/20/2025amboo flowsheet [facility] [place] [facility] [address] [facility] [address] [place] [address] Britt Foy, 03/03/2025bstract [facility] [place] [facility] [address] [facility] [address] [place] [address] Britt Foy, 02/28/2025bstract [facility] [place] [facility] [address] [facility] [address] [place] [phone] Britt Foy, from Last 3 Months Family History RelationNameStatusCommentsDaughterAliveFatherAliveMotherAliveSisterAlive Social History Tobacco UseTypesPacks/DayYears UsedDateSmoking Tobacco: NeverSmokeless Tobacco: Never Tobacco Cessation:Counseling Given: Not Answered Alcohol UseStandard Drinks/WeekCommentsNever0 (1 standard drink = 0.6 oz pure alcohol)Estimated Date of VmjnmvmgPireorlaEdm91/01/2025ased on last menstrual period of 09/16/2024Sex and Gender InformationValueDate RecordedSex Assigned at BirthNot on fileLegal WizNmtfrz74/15/2023 11:47 PM EDTGender IdentityNot on fileSexual OrientationNot on file Last Filed Vital Signs Vital SignReadingTime TakenCommentsBlood Jjhykjky506/8011/11/2024 2:52 PM EST Pulse--Temperature--Respiratory Rate--Oxygen Saturation--Inhaled Oxygen Concentration--Ipfhjt639 kg (237 lb 12.8 oz)05/28/2025 2:52 PM QJRPlapyh009.6 cm (5' 6 )01/30/2023 12:12 PM EDTBody Mass Index38.38001/30/2023 12:12 PM EDT Plan of Treatment DateTypeDepartmentCare Team (Latest Contact Info)Yvbooxsqdwt20/10/2025 1:00 PM ESTRoutine NOMRenzo SANTO [address] [place] [address] [place] [phone] Britt Foy, [address] [place], [place] [phone] 07/28/2025 4:00 PM ESTOffice Visit NOMRenzo SANTO [address] [place] [address] [place] [address] Britt Foy, [address] [facility] [address] [place], [place] [phone] Health MaintenanceDue DateLast DoneCommentsCOVID-19 Vaccine (2024- season) /02/2021, 12/07/2020Influenza Vaccine (#1)2025Pneumococcal Vaccine: Pediatrics (0 to 5 Years) and At-Risk Patients (6 to 64 Years)Aged Out No longer eligible based on patient's age to complete this topic Goals GoalPatient Goal TypeAssociated ProblemsRecent ProgressPatient-Stated?Author Reminders Care PlanOB RemindersNoOpen Scheduling, Background Procedures Procedure NamePriorityDate/TimeAssociated DiagnosisCommentsUS OB BPP W NON-ILXLNN6405/29/2025 10:10 AM EST POCT URINALYSIS QDKFAGAMOifltth01/05/2025 2:52 PM EST 36 weeks gestation of ([facility]) US OB FOLLOW UP TRANSABDOMINAL DGQNWFXDSsitrgj51/05/2025 2:26 PM EST Insulin controlled gestational diabetes mellitus (GDM) during , antepartum ([facility]) US OB BPP W NON-ZNNAAU7105/21/2025 7:56 PM EDT POCT URINALYSIS DVHDOCYZRuyfvub46/22/2025 3:13 PM EDT 34 weeks gestation of ([facility]) US OB BPP W NON-XSRDMJ9304/30/2025 10:59 PM EDT POCT URINALYSIS AWNWIXKMTlwtoao08/08/2025 3:19 PM EDT 32 weeks gestation of ([facility]) POCT URINALYSIS HNZQKXJFSxocaik29/22/2025 3:54 PM EDT Third trimester ([facility]) US OB UHMIBH2304/05/2025 12:08 PM EDT ALL CBC WITH AUTO WEHPNdkmlcd52/13/2025 10:33 AM EDT URINARY TRACT INFECTION (HTRX)Ufqjsgn4804/03/2025 3:53 PM EDT POCT URINALYSIS QHWFLOTBZxopilj27/11/2025 3:51 PM EDT 28 weeks gestation of ([facility]) Third trimester ([facility]) POCT URINALYSIS NPDNANQTNgjioaf33/20/2025 4:14 PM EDT 25 weeks gestation of ([facility]) Second trimester ([facility]) from Last 3 Months Results * US OB BPP W NON-STRESS (05/29/2025 10:10 AM EST) Only the most recent of3 resultswithin the time period is included. Anatomical RegionLateralityModalityOtherSpecimen (Source)Anatomical Location / LateralityCollection Method / VolumeCollection TimeReceived Time05/29/2025 10:10 AM EST Narrative 05/29/2025 10:13 AM EST [facility] ?[address] ? [place] [address] ? Ultrasound Report ? Signed ? Patient: ARVINCEECLIAVINNY C ?MR#: [id number] ?? : 2000 ?Acct:[id number] ?? Age/Sex: 24 / F ?ADM Date: 05/28/25 ?? Loc: US ? Attending Dr: Britt Foy D.O. ? Ordering Physician: Britt Foy D.O. ?? Date of Service: 05/28/25 ?? Procedure(s): US OB BPP w non-stress ?? Accession Number(s): [id number] ? cc: Britt Foy D.O.; Ynes Mistry CLINCHING MACHINE OPERATOR ? [facility] ? [address] ? [place] [address] ? Patient Name: ?? VINNY HERRERA ? MRN: [facility]:[id number] ? date: 2000 ?Sex: F ?? Assigned Patient Location: ?? Current Patient Location: US ?? Accession/Order Number: [id number] ?? Exam Date: 05/28/2025 ??16:05 ?Report Date: [...] Dictation Location: RADIO-PC-02 ? Electronically authenticated by: [id number] ??Y ?? Date: 05/29/2025 ??10:10 ? Dictated By: ?Criselda Flores M.D. ? Signed By: ?05/29/25 1013 ? DD/ 1010 ? TD/TT: ? Sales Marketing Director: Procedure Note Radiology, Radiologist, - 05/29/2025 [place] [address] Ultrasound Report Signed Patient: VINNY HERRERA CMR#: [id number] : 2000Acct:[id number] Age/Sex: 24 / FADM Date: 05/28/25 Loc: US Attending Dr: Britt Foy D.O. Ordering Physician: Britt Foy D.O. Date of Service: 05/28/25 Procedure(s): US OB BPP w non-stress Accession Number(s): [id number] cc: Britt Foy D.O.; Ynes Mistry NP [facility] [place] [address] Patient Name: VINNY HERRERA MRN: [id number] date: 2000 Sex: F Assigned Patient Location: US Current Patient Location: US Accession/Order Number: [id number] Exam Date: 05/28/2025 16:05 Report Date: 05/29/2025 [...] Flores M.D. 05/29/2025 10:10 AM Dictation Location: [place] [address] Electronically authenticated by: [id number] Y Date: 0:10 Dictated By: Criselda Flores M.D. Signed By:05/29/25 1013 DD/ 1010 TD/TT: Sales Marketing Director: Authorizing ProviderResult TypeResult StatusCorey Law DOCLINISYNC IMAGINGFinal Result * POCT urinalysis dipstick manually resulted (05/28/2025 2:52 PM EST) Only the most recent of6 resultswithin the [...] Location / LateralityCollection Method / VolumeCollection TimeReceived QmfhBepol83/05/2025 2:52 PM EST Narrative Authorizing ProviderResult TypeResult StatusAmy [facility] TEST ENTER/EDIT ORDERABLESFinal Result * US OB follow up transabdominal approach [...] Reyes MD Authorizing ProviderResult TypeResult StatusCorey Law DOIMG OB US PROCEDURES Final Result * US OB GROWTH (04/05/2025 12:08 PM EDT)Anatomical RegionLateralityModalityOther Specimen (Source)Anatomical Location / LateralityCollection Method / Volume Collection TimeReceived Time04/05/2025 12:08 PM EDT Narrative 04/05/2025 12:11 PM EDT [facility] ?[address] ? [place] [address] ? Ultrasound Report ? Signed ? Patient: VINNY HERRERA ?MR#: [id number] ?? : 2000 ?Acct:[id number] ?? Age/Sex: 24 / F ?ADM Date: 04/05/25 ?? Loc: US ? Attending Dr: Regina Cummins ? Ordering Physician: Regina Cummins ?? Date of Service: 04/05/25 ?? Procedure(s): US OB growth ?? Accession Number(s): [id number] ? cc: Regina Cummins; Physician,Non-Staff M.D. ? [facility] ? [address] ? [place] [address] ? Patient Name: ?? VINNY HERRERA ? MRN: [facility]:[id number] ? date: 2000 ?Sex: F ?? Assigned Patient Location: US ?? Current Patient Location: LAB ?? Accession/Order Number: [id number] ?? Exam Date: 04/05/2025 ??10:00 ?Report Date: [...] Dictation Location: RADIO-PC-20 ? Electronically authenticated by: [id number] ??Y ?? Date: 04/05/2025 ??12:08 ? Dictated By: ?Daryn Peraza D.O. ? Signed By: ?04/05/25 1211 ? DD/ 1208 ? TD/TT: ? Sales Marketing Director: Procedure Note Radiology, Radiologist, - 04/05/2025 [place] [address] Ultrasound Report Signed Patient: VINNY HERRERA CMR#: [id number] : 2000Acct:[id number] Age/Sex: 24 / FADM Date: 04/05/25 Loc: US Attending Dr: Regina Cummins Ordering Physician: Regina Cummins Date of Service: 04/05/25 Procedure(s): US OB growth Accession Number(s): [id number] cc: Regina Cummins; Physician,Non-Staff M.DSania The [address] [address] Patient Name: VINNY HERRERA MRN: [facility]:[id number] date: 2000 Sex: F Assigned Patient Location: US Current Patient Location: LAB Accession/Order Number: [id number] Exam Date: 04/05/2025 10:00 Report Date: 04/05/2025 [...] Peraza M.D. 04/05/2025 12:08 PM Dictation Location: [place] [address] Electronically authenticated by: [id number] Y Date: 2:08 Dictated By: Daryn Peraza D.O. Signed By:04/05/25 1211 DD/ 1208 TD/TT: Sales Marketing Director: Authorizing ProviderResult TypeResult StatusAmy [facility] IMAGINGFinal Result * (ABNORMAL) ALL CBC WITH AUTO DIFF (04/05/2025 10:33 AM EDT)ComponentValueRef RangeTest MethodAnalysis TimePerformed AtPathologist SignatureTBH WBC11.04.0 - 11.0 10 3/uLTBHTBH RBC3.47(L)4.20 - 5.40 10 6/uLTBHTBH HGB10.3(L)12.0 - 16.0 g/dLTBHTBH HCT30.7(L)36.0 - 48.0 %TBHTBH MCV88.581.0 - 99.0 fLTBHTBH MCH29.7 26.7 - 34.0 pgTBHTBH MCHC33.629.9 - 35.2 g/dLTBHTBH RDW12.811.0 - 15.0 %TBHTBH FTX503046 - 450 10 3/uLTBHTBH MPV8.7(L)9.5 - 13.5 [...] G PACLINISYNCFinal Result Performing OrganizationAddressCity/State/ZIP CodePhone Number [facility] * URINARY TRACT INFECTION (HTRX) (04/03/2025 3:53 PM EDT)ComponentValueRef Range Test MethodAnalysis TimePerformed AtPathologist SignatureACINETOBACTER DCJCHDZJ283.961 - 24.689 ppm04/04/2025 7:51 AM EDTHealthTrackRx at [facility] ACINETOBACTER BAUMANIINot Npcjcnqw75.961 - 24.689 ppm04/04/2025 7:51 AM EDT [facility] LabPortCITROBACTER GCXBWRIM504.000 - 32.015 ppm04/04/2025 7:51 AM EDTHealthTrackRx at LabPortCITROBACTER FREUNDIINot Jzuitzth76.000 - 32.015 ppm04/04/2025 7:51 AM EDTHealthTrackRx at LabPortENTEROBACTER AEROGENES, GTQLRCP289.000 - 32.290 ppm04/04/2025 7:51 AM EDTHealthTrackRx at LabPortENTEROBACTER AEROGENES, CLOACAENot Scidshom36.000 - 32.290 ppm 04/04/2025 7:51 AM EDTHealthTrackRx at LabPortENTEROCOCCUS FAECALIS, FAECIUM0 26.000 - 33.043 ppm04/04/2025 7:51 AM EDTHealthTrackRx at LabPortENTEROCOCCUS FAECALIS, FAECIUMNot Fovmzrrq51.000 - 33.043 ppm04/04/2025 7:51 AM EDT [facility] at LabPortESCHERICHIA CVEM542.000 - 28.500 ppm04/04/2025 7:51 AM EDTHealthTrackRx at LabPortESCHERICHIA COLINot Rmjccztq23.000 - 28.500 ppm 04/04/2025 7:51 AM EDTHealthTrackRx at LabPortKLEBSIELLA PNEUMONIAE, OXYTOCA0 23.000 - 31.865 ppm04/04/2025 7:51 AM EDTHealthTrackRx at LabPortKLEBSIELLA PNEUMONIAE, OXYTOCANot Odlbpiko07.000 - 31.865 ppm04/04/2025 7:51 AM EDT [facility] at LabPortMORGANELLA POAXXCAU767.961 - 24.689 ppm04/04/2025 7:51 AM EDTHealthTrackRx at LabPortMORGANELLA MORGANIINot Rfpozgbu45.961 - 24.689 ppm04/04/2025 7:51 AM EDTHealthTrackRx at LabPortPROTEUS MIRABILIS, VULGARIS0 23.000 - 28.500 ppm04/04/2025 7:51 AM EDTHealthTrackRx at LabPortPROTEUS MIRABILIS, VULGARISNot Zesrjnag49.000 - 28.500 ppm04/04/2025 7:51 AM EDT [facility] at LabPortPSEUDOMONAS HTVCMUISAS604.000 - 31.801 ppm04/04/2025 7:51 AM EDTHealthTrackRx at LabPortPSEUDOMONAS AERUGINOSANot Yfjdxicr10.000 - 31.801 ppm04/04/2025 7:51 AM EDTHealthTrackRx at LabPortSTAPHYLOCOCCUS AUREUS0 26.000 - 31.595 ppm04/04/2025 7:51 AM EDTHealthTrackRx at [facility] STAPHYLOCOCCUS AUREUSNot Lxjvvfdf12.000 - 31.595 ppm04/04/2025 7:51 AM EDT [facility] at LabPortSTREPTOCOCCUS AGALACTIAE (GROUP B STREP)026.000 - 32.435 ppm04/04/2025 7:51 AM EDTHealthTrackRx at LabPortSTREPTOCOCCUS AGALACTIAE (GROUP B STREP)Not Ufdfhwhd56.000 - 32.435 ppm04/04/2025 7:51 AM EDTHealthTrackRx at LabPortCANDIDA ALBICANS, PARAPSILOSIS, UNFUTRZYQO458.000 - 30.347 ppm04/04/2025 7:51 AM EDTHealthTrackRx at LabPortCANDIDA ALBICANS, PARAPSILOSIS, TROPICALISNot Oxfacpgl98.000 - 30.347 ppm04/04/2025 7:51 AM EDT [facility] LabPortCANDIDA UVVMYTDE866.000 - 31.618 ppm04/04/2025 7:51 AM EDTHealthTrackRx at LabPortCANDIDA GLABRATANot Wzmgxtiy66.000 - 31.618 ppm 04/04/2025 7:51 AM EDTHealthTrackRx at LabPortCANDIDA XQIMCT408.000 - 30.873 ppm04/04/2025 7:51 AM EDTHealthTrackRx at LabPortCANDIDA KRUSEINot Detected 23.000 - 30.873 ppm04/04/2025 7:51 AM EDTHealthTrackRx at LabPortSERRATIA YOTIIHKYEV550.000 - 31.581 ppm04/04/2025 7:51 AM EDTHealthTrackRx at [facility] SERRATIA MARCESCENSNot Gpkxycyk31.000 - 31.581 ppm04/04/2025 7:51 AM EDT [facility] at LabPortSTREPTOCOCCUS PYOGENES (GROUP A STREP)019.961 - 24.689 ppm04/04/2025 7:51 AM EDTHealthTrackRx at LabPortSTREPTOCOCCUS PYOGENES (GROUP A STREP)Not Hivrumhk50.961 - 24.689 ppm04/04/2025 7:51 AM EDT [facility] LabPortSTAPHYLOCOCCUS EPIDERMIDIS, HAEMOLYTICUS, LUGDUNENSIS, SAPROPHYTICUS (XASBZ242.961 - 24.689 ppm04/04/2025 7:51 AM EDTHealthTrackRx at LabPortSTAPHYLOCOCCUS EPIDERMIDIS, HAEMOLYTICUS, LUGDUNENSIS, SAPROPHYTICUS (URINANot Fdzjemgr07.961 - 24.689 ppm04/04/2025 7:51 AM EDTHealthTrackRx at [facility] CenterSTAPHYLOCOCCUS EPIDERMIDIS, HAEMOLYTICUS, LUGDUNENSIS, SAPROPHYTICUS (GBLXB581.961 - 9 ppm04/04/2025 7:51 AM EDTHealthTrackRx at [facility] STAPHYLOCOCCUS EPIDERMIDIS, HAEMOLYTICUS, LUGDUNENSIS, SAPROPHYTICUS (URINANot Jtdkaazu50.961 - 9 ppm04/04/2025 7:51 AM EDTHealthTrackRx at Located within [facility] Specimen (Source)Anatomical Location / LateralityCollection Method / Volume Collection TimeReceived IibyOrhig57/11/2025 3:53 PM EDT04/04/2025 1:35 AM EDT Narrative Authorizing ProviderResult TypeResult StatusAmy Maria G CASILLAS BLOOD ORDERABLES Final ResultPerforming OrganizationAddressCity/State/ZIP CodePhone Number [facility] [address] [place] [address] from Last 3 Months Additional Health Concerns Active ProblemsNoted DateDiagnosed DateOB Kixucjbqy06/09/2025 Insurance
--- OUTSIDE RECORDS SUMMARY | 2025-05-31 09:09 | XMS_ITS | Clinical Summary ---
Author Organization [facility] Address [address] [facility], [address] [place] [address] Care Team Providers Care Advertising Sales Executive Name Role Phone Ynes Mistry CLIENT SERVICES ACCOUNT MANAGER - MATERIALS ENGINEERING TECHNICIAN Primary Care Provide r Allergies No known [...] [address] 200 mg vaginally etfitre02/26/2025Active sertraline (ZOLOFT) 25 MG tablet TAKE 1 TABLET BY MOUTH EVERY DAY 30 tablet 5Active sertraline (ZOLOFT) 25 MG tablet Take 1 tablet by mouth daily 30 tablet Discontinued Active Problems ProblemNoted DateDiagnosed DateGastroesophageal reflux lzhrjfg4211/12/2024Other hyperlipidemia [E78.49]06/04/20242909Nuvznyz06/12/2024Hepatic omiuxvaoo03/14/2024 Elevated liver sivxeqs1103/01/2024Mixed icapnotwikynco68/30/2024Iron deficiency zwnnek1110/25/2023Gestational diabetes mellitus (GDM) affecting second 07/24/20226859Pdfnovw34/07/2020Seasonal allergic ewdvpggv01/07/2020Other fatigue 05/02/2020 Resolved Problems ProblemNoted DateDiagnosed DateResolved DateSore nmpece07503/ne /Irregular asqfqr75/Frequent UTI11/30/2020 02/20/2024yspareunia in qjicyf40/Insomnia due to other mental twsihwpb78 Encounters DateTypeDepartmentCare WsniCskvfvviina02/05/2025Refill [address] [place] [address] Ynes Mistry, CLIENT SERVICES ACCOUNT MANAGER - MATERIALS ENGINEERING TECHNICIAN Medication Ubvtcp5105/22/2025Orders Only [address] [facility] [place] [address] Ynes Mistry, CLIENT SERVICES ACCOUNT MANAGER - MATERIALS ENGINEERING TECHNICIAN 05/13/2025Orders Only [address] [place] [address] ProviderYuval MD 05/01/2025Orders Only [address] [place] [address] Provider, MD Yuval from Last 3 Months Immunizations ImmunizationAdministration DatesNext DueCOVID-19, Inactive, PFIZER PURPLE top, DILUTE for use, (age 12 y+)12/29/2020,2024ZDsN43/29/2004,03/13/2000, 03/12/1999,01/18/1999,1998DTaP, INFANRIX, (age 6w-6y), IM, 0.5mL11/20/2003 ,03/13/2000,03/12/1999,01/18/1999,1998HPV [...] (1 standard drink = 0.6 oz pure alcohol)[facility] UtilitiesAnswerDate RecordedIn the past 12 months has the [employer], gas, oil, or water [employer] threatened to shut off services in your home?No10/07/2024Overall Financial Resource Strain (CARDIA)AnswerDate Recorded How hard is it for you to pay for the very basics like food, housing, medical care, and heating?Not hard at all07/13/2023HQ-2AnswerDate RecordedPHQ-9 Total Hitph368Hunger Vital SignAnswerDate RecordedWithin the past 12 months, [...] were you homeless or living in a halfway (including now)?No10/07/2024Food InsecurityAnswerDate RecordedWithin the past 12 months, you worried that your food would run out before you got the money to buymore.Within the past 12 months, the food you bought just didn't last and you didn't have money to get more.CommentsNoSex and Gender InformationValueDate RecordedSex Assigned at FjteaBkzsmc26/28/2024 8:24 PM EDTLegal HxpTjljhu25/10/2013 3:31 PM ESTGender TtcjbsdhUdhilx43/28/2024 8:24 PM EDTSexual OrientationNot on file Last Filed Vital Signs Vital SignReadingTime TakenCommentsBlood Yofvoped629/7204 11:39 AM EDT Rvjfz6288 11:39 AM KBZTqecqfwxkto08.1 ??C (96.9 ??F)11/12/2024 11:39 AM EDTRespiratory Gpei172610/07/2024 1:43 PM EDTOxygen Bqcbbosypc27%11/12/2024 11:39 AM EDTInhaled Oxygen Concentration--Qpdlyj60.1 kg (203 lb)11/12/2024 11:39 AM XPTLsoyvo026.1 cm (5' 5 )10/07/2024 1:43 PM EDTBody Mass Index33.78010/07/2024 1:43 PM EDT Plan of Treatment Health MaintenanceDue DateLast DoneCommentsDTaP/Tdap/Td vaccine (7 - Td or Tdap) /, 11/20/2003, 11/20/2003, Additional history existsFlu vaccine (#1)5COVID-19 Vaccine (3 - season)/02/2021, 12/07/2020epression Ffaayw99601/, 08/07/2024Pap smear07/15/2027 07/15/2024, 07/15/2023, 07/05/2023, Additional history existsHepatitis B vaccine Jhhrubrjk60/17/1999, 1998, 1998Hib ixgtsdbVjqanniza62/21/2000, 03/12/1999, 01/18/1999, Additional history existsPolio vaccineCompleted 11/20/2003, 03/13/2000, 01/18/1999, Additional history existsVaricella vaccine Vhegswdby20/20/2011, 12/22/1999Hepatitis A clqkzhwJqshglpvw74/27/2012, 08/19/2011, 02/09/2011, Additional history existsMeningococcal (ACWY) vaccine Csqveabgp77/19/2016, 2014, 01/12/2011HPV eepfrvtOtwycrcwp31/28/2018, 05/01/2017, 02/24/2017HIV vmpcwnKatqgdooj90/12/2020Chlamydia/GC screen Pkcqcqyunrqz23/29/2021, 03/03/2020, 02/21/2019, Additional history exists Hepatitis C bqpszrUgqdlarxt82/27/2024Depression MonitoringDiscontinued 08/07/2024, 08/07/20249685SqjugaAxtkohejfnhf22/27/2025, 05/20/2024, 02/16/2024, Additional history existsMeningococcal B vaccineAged OutNo longer eligible based on patient's age to complete this topicPneumococcal 0-49 years VaccineAged Out No longer eligible based on patient's age to complete this topic Procedures Procedure NamePriorityDate/TimeAssociated DiagnosisCommentsBIOPHYSICAL PROFILE Jkxehsi61/29/2025CHG BIOPHYSICAL PROFILE NON-STRESS TESTINGRoutine 05/07/2025 3:54 PM EDTBIOPHYSICAL PROFILE W/LUGHwvmetq79/08/2025 11:39 AM EDTHM PAP TESFUFioohdz61/23/2024 LIPID DHUWALpinztk05/28/2024 9:59 AM EDT Mixed hyperlipidemia HEPATITIS C SFVJOMYCIpgupuw95/27/2024 8:25 AM EDT Need for hepatitis C screening test Wellness examination C.TRACHOMATIS N.GONORRHOEAE DNA, RUEHVBsxmzmw57/29/2021 1:57 PM EDT Frequent UTI HIV ZKDRGIZhyirsr47/12/2020 3:27 PM EDT Encounter for screening for [...] RangeTest MethodAnalysis TimePerformed AtPathologist SignatureHepatitis C AbNONREACTIVE BFMWSANSLGE45/27/2024 8:25 AM EDTMERCY LABORATORIESComment: ? The hepatitis [...] / Volume Collection TimeReceived TimeBloodBLOOD SPECIMEN / Iwdiivf9910/18/2023 8:25 AM EDT 10/18/2023 8:26 AM EDT Narrative Authorizing ProviderResult TypeResult StatusYnes Dalila Fede CLIENT SERVICES ACCOUNT MANAGER - CNPIMMUNOLOGY ORDERABLESFinal ResultPerforming OrganizationAddressCity/State/ZIP CodePhone Number [facility] [address] [place] [address], [facility] [phone] [place] [address] [place] [address], [facility] [phone] * C.trachomatis N.gonorrhoeae DNA, Urine (11/19/2020 1:57 PM EDT)ComponentValue Ref RangeTest MethodAnalysis TimePerformed AtPathologist SignatureSpecimen Description.URINE11/19/2020 1:57 PM EDTMERCY LABORATORIESC. trachomatis DNA ,KrfefTKMHDIGELYAKCXVW01/29/2021 1:57 PM EDTMERCY LABORATORIESComment: CHLAMYDIA TRACHOMATIS DNA [...] alternative nucleic acid target. N. gonorrhoeae DNA, QevbmBQXPTVMPZEMDFCJZ41/29/2021 1:57 PM EDTMERCY LABORATORIESComment: NEISSERIA GONORRHOEAE DNA [...] / LateralityCollection Method / Volume Collection TimeReceived AvqiXilje23/29/2021 1:57 PM EDT11/19/2020 1:57 PM EDT Narrative Authorizing ProviderResult TypeResult StatusLorena Ricks CLIENT SERVICES ACCOUNT MANAGER - MATERIALS ENGINEERING TECHNICIAN MICROBIOLOGY - GENERAL ORDERABLESFinal ResultPerforming OrganizationAddress City/State/ZIP CodePhone Number [place] [phone] [id number] [place] [address] * HIV Screen (05/04/2020 3:27 PM EDT)ComponentValueRef RangeTest MethodAnalysis TimePerformed AtPathologist SignatureHIV Ag/MhRRCELWOANNZMRRUUDOEIHF29/12/2020 3:27 PM EDTMERCY LABORATORIESComment: No laboratory evidence of HIV infection. ??If acute HIV infection is suspected, consider testing for HIV-1 RNA. Specimen (Source)Anatomical Location / LateralityCollection Method / Volume Collection TimeReceived TimeBLOOD SPECIMEN / Jlvnost3005/04/2020 3:27 PM EDT 05/04/2020 3:28 PM EDT Narrative Authorizing ProviderResult TypeResult StatusYnes Mistry APRN - CNPIMMUNOLOGY ORDERABLESFinal ResultPerforming OrganizationAddressCity/State/ZIP CodePhone Number [address] [phone] [phone] from Last 3 Months or Most Recently Relevant to Health Maintenance Insurance Care Teams Team MemberRelationshipSpecialtyStart DateEnd Date Ynes Mistry APRN - MATERIALS ENGINEERING TECHNICIAN [address] [place] [phone] PCP - GeneralFamily Nurse Practitioner08/02/22
--- OUTSIDE RECORDS SUMMARY | 2025-05-31 09:09 | XMS_ITS | Clinical Summary ---
Author Organization [facility] Address [address] [place] [address] Care Team Providers Care Wireless Network Engineer Name Role Phone Ynes Mistry CUSTOMER OPERATIONS SPECIALIST Primary Care Provider [phone] Allergies No known active allergies Medications MedicationSigDispense [...] anemia s/p -hgb 10.8 per recent labs Rrntazndqqlw90/28/2023 Assessment & Plan (03/30/2023 1:01 PM EDT): - 30-day event monitor - we will hold off on starting medication until follow-up Abnormal glucose levelHeartburn Upxgswifqvp91yspareunia in dvkjjp76Frequent UTInxiety Assessment & Plan (03/30/2023 1:01 PM EDT): - takes sertraline 50 mg daily Seasonal allergic suyalilh19/Insomnia due to other mental tunxwdpm89Other untscwj46 Assessment & Plan (03/30/2023 1:02 PM EDT): - could be related to being , anemia -monitor and echo to rule out cardiac concern Family History Medical HistoryRelationNameCommentsHyperlipidemiaFatherSupraventricular tachycardiaFatherAnemiaMotherDiabetesSisterRelationNameStatusCommentsFather MotherSister Social History Tobacco UseTypesPacks/DayYears UsedDateSmoking Tobacco: NeverSmokeless Tobacco: Never Tobacco Cessation:Counseling Given: Not Answered Alcohol UseStandard Drinks/WeekCommentsNot Currently0 (1 standard drink = 0.6 oz pure alcohol)UT Safety & EnvironmentAnswerDate RecordedFear of Current or Ex-PartnerNot on file09/15/2023Emotionally AbusedNot on file09/15/2023hysically AbusedNot on file09/15/2023Sexually AbusedNot on file09/15/2023hysically or Sexually AbusedNot on file09/15/2023CommentsUnknownSex and Gender InformationValueDate RecordedSex Assigned at BirthNot on fileLegal SexFemale 03/17/2023 11:34 AM EDTGender IdentityNot on fileSexual OrientationNot on file Last Filed Vital Signs Vital SignReadingTime TakenCommentsBlood Efcqdizt714/7607/11/2023 4:27 PM EST Pndpb678207/11/2023 4:27 PM ESTTemperature--Respiratory Rate--Oxygen Wfhbnmropp13% 07/11/2023 4:27 PM ESTInhaled Oxygen Concentration--Eaccqf72.7 kg (211 lb) 07/11/2023 4:27 PM SICWdukbc637.6 cm (5' 6 )07/11/2023 4:27 PM ESTBody Mass Index34.0607/11/2023 4:27 PM EST Plan of Treatment Health MaintenanceDue DateLast DoneCommentsDepression Irmmdgcup80/17/2011dult Uklwgfn03/17/COVID-19 Vaccine ( season)2025 12/29/2020, 12/07/2020Influenza Vaccine (#1)2025Pap Smear04/18/2025 04/18/2022Zoster Vaccines (1 of 2)9002/09/2011, 12/22/1999HIB Vaccines Goegxcpjz55/21/2000, 03/12/1999, 01/18/1999, Additional history existsIPV NihgozvuFwdcblogr29/29/2004, 03/13/2000, 01/18/1999, Additional history exists Varicella WozuczigXkcljogxn96/20/2011, 12/22/1999Meningococcal VaccineCompleted 03/11/2016, 2014, 01/12/2011HPV TiidwdfiGwpvmfmsh71/28/2018, 05/01/2017, 02/24/2017Meningococcal B VaccineAged OutNo longer eligible based on patient's age to complete this topicPneumococcal Vaccine: Pediatrics (0 to 5 Years) and At-Risk Patients (6 to 64 Years)Aged OutNo longer eligible based on patient's age to complete this topicRotavirus VaccinesAged OutNo longer eligible based on patient's age to complete this topic Insurance Care Teams Team MemberRelationshipSpecialtyStart DateEnd Date Ynes Mistry, CUSTOMER OPERATIONS SPECIALIST [facility] [address] [place] [id number] PCP - General03/20/23
--- OUTSIDE RECORDS SUMMARY | 2025-05-31 09:09 | XMS_ITS | Encounter Summary ---
Author Organization [facility] Address [address] [place] [address] Care Team Providers Care Music Video Producer Name Role Phone Unavailable Primary Care Provider Unavailabl e Encounter Details DateTypeDepartmentCare Team (Latest Contact Info)Eyrtsokfxkf96/07/2025Telephone [facility] [address] [place] [phone] Mukul Foy DO [address] [place] [address] Social History Tobacco UseTypesPacks/DayYears UsedDateSmoking Tobacco: NeverSmokeless Tobacco: NeverAlcohol UseStandard Drinks/WeekCommentsNever0 (1 standard drink = 0.6 oz pure alcohol)Estimated Date of ThryzityHulhcpitWcf55/01/2025Based on last menstrual period of 09/16/2024Sex and Gender InformationValueDate Recorded Sex Assigned at BirthNot on fileLegal JruQrxiiy56/15/2023 11:47 PM EDTGender IdentityNot on fileSexual OrientationNot on filedocumented as of this encounter Miscellaneous Notes * Telephone Encounter - Carola France LPN - 05/30/2025 11:46 AM EST Patient was called and she was made aware that she will need to increase lantus up 2 units to make her total 17 units nightly. Patient asked if she needed medication sent in and she states she just picked up so she should be good she was advised to reach out if she does need a script sent in. PVU documented in this encounter Plan of Treatment DateTypeDepartmentCare Team (Latest Contact Info)Ntnlahwgbwu95/10/2025 1:00 PM ESTRoutine NOM[facility]ANT[facility] [address] [place] [phone] Mukul Foy, DO [address] [place] [address] 07/28/2025 4:00 PM ESTOffice Visit [facility]ANT[facility] [address] [place] [phone] Mukul Foy, DO [address] [place], [place] [phone] documented as of this encounter Goals GoalPatient Goal TypeAssociated ProblemsRecent ProgressPatient-Stated?Author Reminders Care PlanOB RemindersNoOpen Scheduling, Backgrounddocumented as of this encounter Visit Diagnoses Not on filedocumented in this encounter Additional Health Concerns Active ProblemsNoted DateDiagnosed DateOB Emmguwahs97/09/2025 documented as of this encounter
--- OUTSIDE RECORDS SUMMARY | 2025-05-31 09:10 | XMS_ITS | Encounter Summary ---
Author Organization [facility] Address [address], [address] [place] [address] Care Team Providers Care Ostomy Nurse Name Role Phone Ynes Mistry COMP FIELD CASE MANAGER - AMBULANCE ATTENDANT Primary Care Provide r Encounter Details DateTypeDepartmentCare Team (Latest Contact Info)Qumzmqnliux41/30/2025Orders Only [facility] [address] [place] [address] [address] [place] [address] Ynes Mistry, COMP FIELD CASE MANAGER - AMBULANCE ATTENDANT [address] [place] [phone] Social History Tobacco UseTypesPacks/DayYears UsedDateSmoking Tobacco: NeverSmokeless Tobacco: NeverAlcohol UseStandard Drinks/WeekCommentsNot Currently0 (1 standard drink = 0.6 oz pure alcohol)socialTRIHEALTH [facility] UtilitiesAnswerDate RecordedIn the past 12 months has the electric, gas, oil, or water company threatened to shut off services in your home?No10/07/2024Overall Financial Resource Strain (CARDIA)AnswerDate RecordedHow hard is it for you to pay for the very basics like food, housing, medical care, and heating?Not hard at all07/13/2023HQ-2AnswerDate RecordedPHQ-9 Total Sxknt019Hunger Vital SignAnswerDate RecordedWithin the past 12 months, [...] steady place to sleep or slept in kinzerselter (including now)?No07/13/2023Housing Stability Vital SignAnswerDate RecordedIn the last 12 months, was there a time when you were not able to pay the mortgage or rent on time?No10/07/2024In the past 12 months, how many times have you moved where you were living? At any time in the past 12 months, were you homeless or living in a assisted (including now)?No10/07/2024Food InsecurityAnswerDate RecordedWithin the past 12 months, you worried that your food would run out before you got the money to buy more.Within the past 12 months, the food you bought just didn't last and you didn't have money to get more.CommentsNoSex and Gender InformationValueDate RecordedSex Assigned at HylllMucieh90/28/2024 8:24 PM EDTLegal HejItmpeb75/10/2013 3:31 PM ESTGender TlwisbpiKenowo80/28/2024 8:24 PM EDTSexual OrientationNot on filedocumented as of this encounter Plan of Treatment Not on file documented as of this encounter Procedures Procedure NamePriorityDate/TimeAssociated DiagnosisCommentsBIOPHYSICAL PROFILE Albjlgt1905/21/2025documented in this encounter Results * Biophysical profile (05/21/2025) Narrative Authorizing ProviderResult TypeResult StatusHistorical Provider MDOB GYNE ORDERABLESFinal Result documented in this encounter Visit Diagnoses Not on filedocumented in this encounter Care Teams Team MemberRelationshipSpecialtyStart DateEnd Date Ynes Mistry, COMP FIELD CASE MANAGER - AMBULANCE ATTENDANT [address] [place] [address] [place] [address] PCP - GeneralFamily Nurse Practitioner08/02/22documented as of this encounter
[2025-05-31 09:13] VITALS: BP 114/71; PULSE 83
== END 2025-05-31 09:38 | disposition home or self-care (01) ==
LOC: FBCO 09:06 → FBC 09:07
PROVIDERS: PCP Nurse Practitioner Women's Health; Visit Provider Obstetrics & Gynecology
DX: O24.419 Gestational diabetes mellitus in pregnancy, unspecified control (principal)
CPT/HCPCS: 59025

== ENCOUNTER 2025-06-04 16:00 | Outpatient (OUT) | payer OTHER, SELFPAY ==
--- OUTSIDE RECORDS SUMMARY | 2025-04-30 14:00 | XMS_ITS | Encounter Summary ---
Author Organization [facility] Address [address] [place] [address] Care Team Providers Care Assistant Professor Of Radiology Name Role Phone Unavailable Primary Care Provider Unavailabl e Reason for Visit * ReasonCommentsRoutine Visit Encounter Details DateTypeDepartmentCare Team (Latest Contact Info)Lpqcresfskg18/08/2025 3:00 PM EDTRoutine [facility] [address] [facility] [place] [address] Tiffany Li, ASHWIN [address] [place] [address] Third trimester ([facility]); 32 weeks gestation of ([facility]) Social History Tobacco UseTypesPacks/DayYears UsedDateSmoking Tobacco: NeverSmokeless Tobacco: NeverAlcohol UseStandard Drinks/WeekCommentsNever0 (1 standard drink = 0.6 oz pure alcohol)Estimated Date of EwaauxqvSgnoarlpLmu91/01/2025Based on last menstrual period of 09/16/2024Sex and Gender InformationValueDate Recorded Sex Assigned at BirthNot on fileLegal MdcOoktmj52/15/2023 11:47 PM EDTGender IdentityNot on fileSexual OrientationNot on filedocumented as of this encounter Last Filed Vital Signs Vital SignReadingTime TakenCommentsBlood Wmgsamlb025/7010 3:11 PM EDT Pulse--Temperature--Respiratory Rate--Oxygen Saturation--Inhaled Oxygen Concentration--Trzusx427 kg (227 lb 6.4 oz)04/30/2025 3:11 PM [...] Frequent UTI 11/30/2020 23 weeks gestation of ([facility]) 02/26/2025 Elevated blood sugar level 02/26/2025 Resolved Ambulatory Problems Diagnosis Date Noted Missed period 01/13/2023 Past Medical History: Diagnosis Date GDM (gestational diabetes mellitus) ([facility]) HISTORY PAST MEDICAL HISTORY SOCIAL HISTORY Past Medical History: Diagnosis Date GDM (gestational diabetes mellitus) ([facility]) Social History Tobacco Use Smoking status: Never [...] nursing note reviewed. Exam conducted with a range feeder present. Vitals: Estimated body mass index is 36.7 kg/m?? as calculated from the following: Height as of 01/30/23: 5' 6 . Weight as of this encounter: 227 lb 6.4 oz. BP: 110/70 Patient's last menstrual period was 09/16/2024. ASSESSMENT & PLAN ICD-10-CM 1. Third trimester ([facility]) Z34.93 2. 32 weeks gestation of ([facility]) Z3A.32 POCT urinalysis dipstick manually resulted Return [...] Plan of Treatment DateTypeDepartmentCare Team (Latest Contact Info)Yxyxzjeidqx50/05/2026 4:00 PM ESTOffice Visit [facility] [address] [facility] [place] [phone] Mukul Foy, [address] [place] [address] documented as of this encounter Goals GoalPatient Goal TypeAssociated ProblemsRecent ProgressPatient-Stated?Author Reminders Care PlanOB RemindersNoOpen Scheduling, Backgrounddocumented as of this encounter Procedures Procedure NamePriorityDate/TimeAssociated DiagnosisCommentsPOCT URINALYSIS PXAJDGLGYbganix23/08/2025 3:19 PM EDT 32 weeks gestation of ([facility]) documented in this encounter Results * (ABNORMAL) [...] / LateralityCollection Method / VolumeCollection Time Received JczgMozek16/08/2025 3:19 PM EDT Narrative Authorizing ProviderResult TypeResult StatusKristina Guillermo NPPOINT OF CARE TEST ENTER/EDIT ORDERABLESFinal Result documented in this encounter Visit Diagnoses Diagnosis Third trimester ([facility]) state, incidental 32 weeks gestation of ([facility]) documented in this encounter Additional Health Concerns Active ProblemsNoted DateDiagnosed DateOB Hdaoyazfq73/09/2025 documented as of this encounter
--- OUTSIDE RECORDS SUMMARY | 2025-05-14 13:50 | XMS_ITS | Encounter Summary ---
Author Organization [facility] Address [address] [place] [address] Care Team Providers Care Cotton Buyer Name Role Phone Unavailable Primary Care Provider Unavailabl e Reason for Visit * ReasonCommentsRoutine Visit Encounter Details DateTypeDepartmentCare Team (Latest Contact Info)Ywexlaguhmj82/22/2025 2:50 PM EDTRoutine [facility] [address] [place] [address] Mukul Foy DO [address] [place], [place] [phone] Third trimester ([facility]); 34 weeks gestation of ([facility]); Insulin controlled gestational diabetes mellitus (GDM) during , antepartum ([facility]); Gestational diabetes mellitus (GDM), antepartum, gestational diabetes method of control unspecified([facility]) Social History Tobacco UseTypesPacks/DayYears UsedDateSmoking Tobacco: NeverSmokeless Tobacco: NeverAlcohol UseStandard Drinks/WeekCommentsNever0 (1 standard drink = 0.6 oz pure alcohol)Estimated Date of LjvaqtuqQvwmazfbAtp04/01/2025Based on last menstrual period of 09/16/2024Sex and Gender InformationValueDate Recorded Sex Assigned at BirthNot on fileLegal EkvTaoofy53/15/2023 11:47 PM EDTGender IdentityNot on fileSexual OrientationNot on filedocumented as of this encounter Last Filed Vital Signs Vital SignReadingTime TakenCommentsBlood Uwprjyto350/7010 3:05 PM EDT Pulse--Temperature--Respiratory Rate--Oxygen Saturation--Inhaled Oxygen Concentration--Yxbtxc304 kg (232 lb 1.9 oz)05/14/2025 3:05 PM EDTHeight--Body Mass Index37.4707 12:12 PM EDTdocumented in this encounter Progress Notes * Criselda Aguirre LPN - 05/14/2025 2:50 PM EDT Reason for Appointment: Patient ID: Portia Downey is a 24 y.o. female who presents for Routine Visit Patient presents today for Return OB appointment. MEDICATIONS Current Outpatient Medications Medication Instructions glucose blood test strip Use as instructed insulin pen needle 29G x 8mm misc 1 each, Subcutaneous, Daily Lantus SoloStar 10 Units, Subcutaneous, Nightly, [...] Frequent UTI 11/30/2020 23 weeks gestation of ([facility]) 02/26/2025 Elevated blood sugar level 02/26/2025 Resolved Ambulatory Problems Diagnosis Date Noted Missed period 01/13/2023 Past Medical History: Diagnosis Date GDM (gestational diabetes mellitus) ([facility]) HISTORY PAST MEDICAL HISTORY SOCIAL HISTORY Past Medical History: Diagnosis Date GDM (gestational diabetes mellitus) ([facility]) Social History Tobacco Use Smoking status: [...] nursing note reviewed. Exam conducted with a research dairy farm supervisor present. Vitals: Estimated body mass index is 37.47 kg/m?? as calculated from the following: Height as of 01/30/23: 5' 6 . Weight as of this encounter: 232 lb 1.9 oz. BP: 110/70 Patient's last menstrual period was 09/16/2024. Assessment/Plan ICD-10-CM 1. Third trimester ([facility]) Z34.93 2. 34 weeks gestation of ([facility]) Z3A.34 POCT urinalysis dipstick manually resulted Return OB: Patient presents today for a routine obstetrics appointment. Patient is currently 34w2d . Patient states she is doing well but has complaints of being tired due to current . Patient has verbalizes frequent movement. labor precautions was discussed/given and patient was instructed to perform kick counts three times a day. Pt to increase lantus at night to 15 units Orders Placed This Encounter Procedures POCT urinalysis dipstick manually resulted Follow Up: Patient is to return to office in 2 week for routine OB appointment. Documented by Criselda Aguirre LPN on behalf of: Mukul Foy DO documented in this encounter Plan of Treatment DateTypeDepartmentCare Team (Latest Contact Info)Yrwmagqxhul91/05/2026 4:00 PM ESTOffice Visit [facility] [address] [place] [phone] Mukul Foy DO [address] [place] [address] documented as of this encounter Goals GoalPatient Goal TypeAssociated ProblemsRecent ProgressPatient-Stated?Author Reminders Care PlanOB RemindersNoOpen Scheduling, Backgrounddocumented as of this encounter Procedures Procedure NamePriorityDate/TimeAssociated DiagnosisCommentsPOCT URINALYSIS SLSPLFBYEncvnnr78/22/2025 3:13 PM EDT 34 weeks gestation of ([facility]) documented in this encounter Results * US OB follow up transabdominal approach (05/28/2025 2:26 PM EST)Anatomical RegionLateralityModalityBodyUltrasoundSpecimen (Source)Anatomical Location / LateralityCollection Method / VolumeCollection TimeReceived Time05/28/2025 2:28 PM EST Impressions 05/29/2025 7:57 AM EST Single, live intrauterine , current sonographic age of 35 weeks and 5 days, with an estimated date of delivery of June 27, 2025 (prior JOCELIN June 24, 2025). * ??Estimated Weight (g) by Percentile is based upon an accurate estimated age based onlast menstrual period. ?? TRANSCRIBED BY: ? ELECTRONICALLY SIGNED BY: Ron Reyes MD Narrative 05/29/2025 7:57 AM EST FINDINGS: Comparison February 11, 2025. A single, live intrauterine is present with normal cardiac rate of 127 beats per minute. Normal activity and amniotic fluid volume. Amniotic fluid index is 16 cm. ??Morphology is grossly normal. The current sonographic age is 35 weeks and 5 days, based on the following measurements: ?BPD ? 8.7 cm (34 weeks, 6 days) ?Head Circumference ?32.5 cm (36 weeks, 5 days) ?Abdominal Circumference ?31.7 cm (35 weeks, 4 days) ?Femur Length ?7.0 cm (35 weeks, 5 days) ?Presentation ? Cephalic ? Weight (g) by Percentile ??35.0 % * These measurements result in an estimated date of delivery of June 27, 2025 ?? The current estimated weight is 2735 grams (6 pounds, 0 ounces). ?? Procedure Note Ron Reyes MD - 05/29/2025 FINDINGS: Comparison February 11, 2025. A single, live intrauterine is present with normal cardiacrate of 127 beats per minute. Normal activity and amniotic fluidvolume. Amniotic fluid index is 16 cm. Morphology is grossly normal. Thecurrent sonographic age is 35 weeks and 5 days, based on the followingmeasurements: BPD 8.7 cm (34 weeks, 6 days) Head Circumference 32.5 cm (36 weeks, 5 days) Abdominal Circumference 31.7 cm (35 weeks, 4 days) Femur Length 7.0 cm (35 weeks, 5 days) Presentation Cephalic Weight (g) by Percentile 35.0 % * These measurements result in an estimated date of delivery of June The current estimated weight is 2735 grams (6 pounds, 0ounces). IMPRESSION: Single, live intrauterine , current sonographic age of 35 weeksand 5 days, with an estimated date of delivery of June 27, 2025 (priorEDD June 24, 2025). * Estimated Weight (g) by Percentile is based upon an accurateestimated age based on last menstrual period. TRANSCRIBED BY: ELECTRONICALLY SIGNED BY: Ron Reyes MD Authorizing ProviderResult TypeResult StatusCorevicki Foy DOIMG OB US PROCEDURES Final Result * POCT urinalysis dipstick manually resulted (05/14/2025 3:13 PM EDT)Component ValueRef RangeTest MethodAnalysis TimePerformed AtPathologist SignatureColor, UAYellowClarity, UAClearGlucose, UANegativeNegative - 2000(110) ++++ mg/dL Bilirubin, UANegativeNegative - 4(70) +++ mg/dLKetones, UANegativeNegative - 160(16) ++++ mg/dLSpec Grav, UA1.0101 - 1.03Blood, UANegativeNegative - 50 Yunior/mcLpH, UA6.55 - 9Protein, UANegativeNegative - 2000(20) ++++ mg/dL Urobilinogen, UA2.00.2 - 12 mg/dLLeukocytes, UANegativeNegative - 500+++ Trip/mcLNitrite, UANegativeNegative - PositiveSpecimen (Source)Anatomical Location / LateralityCollection Method / VolumeCollection TimeReceived Time Urine05/14/2025 3:13 PM EDT Narrative Authorizing ProviderResult TypeResult StatusCorevicki Foy DOPOINT OF CARE TEST ENTER/EDIT ORDERABLESFinal Result documented in this encounter Visit Diagnoses Diagnosis Third trimester ([facility]) state, incidental 34 weeks gestation of ([facility]) Insulin controlled gestational diabetes mellitus (GDM) during , antepartum ([facility]) Gestational diabetes mellitus (GDM), antepartum, gestational diabetes method of control unspecified([facility]) Insulin controlled gestational diabetes mellitus (GDM) during , antepartum ([facility]) documented in this encounter Additional Health Concerns Active ProblemsNoted DateDiagnosed DateOB Afswjayul39/09/2025 documented as of this encounter
--- OUTSIDE RECORDS SUMMARY | 2025-05-28 14:00 | XMS_ITS | Encounter Summary ---
Author Organization [facility] Address [address] [place] [address] Care Team Providers Care Machine Operator Hop Worker Name Role Phone Unavailable Primary Care Provider Unavailabl e Encounter Details DateTypeDepartmentCare Team (Latest Contact Info)Xydijgyiefk35/05/2025 2:00 PM ESTAncillary Procedure [facility] [address] [address] [place] [address] Insulin controlled gestational diabetes mellitus (GDM) during , antepartum ([facility] Social History Tobacco UseTypesPacks/DayYears UsedDateSmoking Tobacco: NeverSmokeless Tobacco: NeverAlcohol UseStandard Drinks/WeekCommentsNever0 (1 standard drink = 0.6 oz pure alcohol)Estimated Date of ChraukkpCqsvmqlkWcf17/01/2025Based on last menstrual period of 09/16/2024Sex and Gender InformationValueDate Recorded Sex Assigned at BirthNot on fileLegal TyhRjocbb48/15/2023 11:47 PM EDTGender IdentityNot on fileSexual OrientationNot on filedocumented as of this encounter Plan of Treatment DateTypeDepartmentCare Team (Latest Contact Info)Zhaeeyythqr64/05/2026 4:00 PM ESTOffice Visit [facility] SANTO [address] [place] [address] Mukul Foy DO [address] [place], [place] [phone] documented as of this encounter Goals GoalPatient Goal TypeAssociated ProblemsRecent ProgressPatient-Stated?Author Reminders Care PlanOB RemindersNoOpen Scheduling, Backgrounddocumented as of this encounter Procedures Procedure NamePriorityDate/TimeAssociated DiagnosisCommentsUS OB FOLLOW UP TRANSABDOMINAL VDVUCCRKXsvtfan63/05/2025 2:26 PM EST Insulin controlled gestational diabetes mellitus (GDM) during , antepartum ([facility]) documented in this encounter Results * US [...] Ron Reyes MD Authorizing ProviderResult TypeResult StatusCorey [facility] US PROCEDURES Final Result documented in this encounter Visit Diagnoses Diagnosis Insulin controlled gestational diabetes mellitus (GDM) during , antepartum ([facility]) documented in this encounter Additional Health Concerns Active ProblemsNoted DateDiagnosed DateOB Ltjtmcbtp38/09/2025 documented as of this encounter
--- OUTSIDE RECORDS SUMMARY | 2025-05-28 14:30 | XMS_ITS | Encounter Summary ---
Author Organization [facility] Address [address] [place] [address] Care Team Providers Care Inspector Motor Vehicles Name Role Phone Unavailable Primary Care Provider Unavailabl e Reason for Visit * ReasonCommentsRoutine Visit Encounter Details DateTypeDepartmentCare Team (Latest Contact Info)Ivwgjsrwwie96/05/2025 2:30 PM ESTRoutine [facility] [place] [facility] [address] [address] Regina Barton PA [address] [place] [address] Third trimester ([facility]); 36 weeks gestation of ([facility]) Social History Tobacco UseTypesPacks/DayYears UsedDateSmoking Tobacco: NeverSmokeless Tobacco: NeverAlcohol UseStandard Drinks/WeekCommentsNever0 (1 standard drink = 0.6 oz pure alcohol)Estimated Date of IxssyvvpFionqnwmHpt17/01/2025ased on last menstrual period of 09/16/2024Sex and Gender InformationValueDate Recorded Sex Assigned at BirthNot on fileLegal QxdXlamme51/15/2023 11:47 PM EDTGender IdentityNot on fileSexual OrientationNot on filedocumented as of this encounter Last Filed Vital Signs Vital SignReadingTime TakenCommentsBlood Mekquido775/80107/28/2024 2:52 PM EST Pulse--Temperature--Respiratory Rate--Oxygen Saturation--Inhaled Oxygen Concentration--Slvysx194 kg (237 lb 12.8 oz)05/28/2025 2:52 PM ESTHeight--Body Mass Index38.38001/30/2023 12:12 PM EDTdocumented in this encounter Progress Notes * JOSEPH Bowie - 05/28/2025 2:30 PM EST Reason for Appointment: Patient ID: Portia Downey is a 24 y.o. female who presents for Routine Visit Patient presents today for Return OB appointment. MEDICATIONS Current Outpatient Medications Medication Instructions glucose blood test strip Use as instructed insulin pen needle 29G x 8mm misc 1 each, Subcutaneous, Daily Lantus SoloStar 15 Units, Subcutaneous, Nightly, FILL ACCORDING TO INSURANCE [...] Frequent UTI 11/30/2020 23 weeks gestation of ([facility]) 02/26/2025 Elevated blood sugar level 02/26/2025 Resolved Ambulatory Problems Diagnosis Date Noted Missed period 01/13/2023 Past Medical History: Diagnosis Date GDM (gestational diabetes mellitus) ([facility]) HISTORY PAST MEDICAL HISTORY SOCIAL HISTORY Past Medical History: Diagnosis Date GDM (gestational diabetes mellitus) ([facility]) Social History Tobacco Use Smoking [...] nursing note reviewed. Exam conducted with a quality assurance auditor present. Vitals: Estimated body mass index is 38.38 kg/m?? as calculated from the following: Height as of 01/30/23: 5' 6 . Weight as of this encounter: 237 lb 12.8 oz. BP: 120/80 Patient's last menstrual period was 09/16/2024. Assessment/Plan ICD-10-CM 1. Third trimester ([facility]) Z34.93 CULTURE, GROUP B STREP WITH SUSCEPTIBLITY CULTURE, GROUP B STREP WITH SUSCEPTIBLITY 2. 36 weeks gestation of ([facility]) Z3A.36 POCT urinalysis dipstick manually resulted Patient is doing well but has complaints of being tired and having maternal discomfort due to . Patient verbalized frequent movement and was instructed to perform kick counts three times per day. labor precautions were given, LARC consent was signed/declined, and GBS was obtained. Cervical check was performed and patient is 0cm dilated. Reviewed glucose log with 15 units of lantus at bedtime Orders Placed This Encounter Procedures CULTURE, GROUP B STREP WITH SUSCEPTIBLITY POCT urinalysis dipstick manually resulted Patient fastings BS are increasing, patient will increase insulin by 2 units. Follow Up: Patient is to return to office in 1 week for routine OB appointment Documented by Criselda Aguirre LPN on behalf of: JOSEPH Bowie documented in this encounter Plan of Treatment DateTypeDepartmentCare Team (Latest Contact Info)Tlbgnengcdz86/05/2026 4:00 PM ESTOffice Visit [facility] [place] [facility] [address] [facility] [phone] Mukul Foy DO [address] [place] [address] NameTypePriorityAssociated DiagnosesOrder ScheduleCULTURE, GROUP B STREP WITH SUSCEPTIBLITYLabRoutine Third trimester ([facility]) Expected: 05/28/2025, Expires: 05/28/2026documented as of this encounter Goals GoalPatient Goal TypeAssociated ProblemsRecent ProgressPatient-Stated?Author Reminders Care PlanOB RemindersNoOpen Scheduling, Backgrounddocumented as of this encounter Procedures Procedure NamePriorityDate/TimeAssociated DiagnosisCommentsPOCT URINALYSIS UAUILZBAEiadyar91/05/2025 2:52 PM EST 36 weeks gestation of ([facility]) documented in this encounter Results * POCT urinalysis dipstick manually resulted (05/28/2025 2:52 PM EST)Component ValueRef RangeTest MethodAnalysis TimePerformed AtPathologist SignatureColor, UAYellowClarity, UAClearGlucose, UANegativeNegative - 2000(110) ++++ mg/dL Bilirubin, UANegativeNegative - 4(70) +++ mg/dLKetones, UANegativeNegative - 160(16) ++++ mg/dLSpec Grav, UA1.0051 - 1.03Blood, UANegativeNegative - 50 Yunior/mcLpH, UA6.55 - 9Protein, UANegativeNegative - 2000(20) ++++ mg/dL Urobilinogen, UA1.00.2 - 12 mg/dLLeukocytes, UANegativeNegative - 500+++ Trip/mcLNitrite, UANegativeNegative - PositiveSpecimen (Source)Anatomical Location / LateralityCollection Method / VolumeCollection TimeReceived Time Urine05/28/2025 2:52 PM EST Narrative Authorizing ProviderResult TypeResult StatusRegina Barton [facility] TEST ENTER/EDIT ORDERABLESFinal Result documented in this encounter Visit Diagnoses Diagnosis Third trimester ([facility]) state, incidental 36 weeks gestation of ([facility]) documented in this encounter Additional Health Concerns Active ProblemsNoted DateDiagnosed DateOB Dojbgqsau02/09/2025 documented as of this encounter
--- OUTSIDE RECORDS SUMMARY | 2025-06-02 13:10 | XMS_ITS | Encounter Summary ---
Author Organization [facility] Address [address] [place] [address] Care Team Providers Care Truck Hop Name Role Phone Unavailable Primary Care Provider Unavailabl e Reason for Visit * ReasonCommentsRoutine Visit Encounter Details DateTypeDepartmentCare Team (Latest Contact Info)Cbekuczkwff93/10/2025 1:10 PM ESTRoutine [facility] [address] [place] [phone] Mukul Foy DO [address] [place] [address] 37 weeks gestation of ([facility]); Third trimester ([facility]); Insulin controlled gestational diabetes mellitus (GDM) during , antepartum ([facility]); Gestational diabetes mellitus (GDM), antepartum, gestational diabetes method of control unspecified([facility]) Social History Tobacco UseTypesPacks/DayYears UsedDateSmoking Tobacco: NeverSmokeless Tobacco: NeverAlcohol UseStandard Drinks/WeekCommentsNever0 (1 standard drink = 0.6 oz pure alcohol)Estimated Date of EhspxsvnJjvpnsvqGyl18/01/2025Based on last menstrual period of 09/16/2024Sex and Gender InformationValueDate Recorded Sex Assigned at BirthNot on fileLegal WurHvkiki76/15/2023 11:47 PM EDTGender IdentityNot on fileSexual OrientationNot on filedocumented as of this encounter Last Filed Vital Signs Vital SignReadingTime TakenCommentsBlood Waywkhpl719/80108/02/2024 1:22 PM EST Pulse--Temperature--Respiratory Rate--Oxygen Saturation--Inhaled Oxygen Concentration--Mbdqsl505 kg (237 lb 12.8 oz)06/02/2025 1:22 PM ESTHeight--Body Mass Index38.38001/30/2023 12:12 PM EDTdocumented in this encounter Progress Notes * Mukul Foy DO - 06/02/2025 1:10 PM EST Reason for Appointment: Patient ID: Portia Downey is a 24 y.o. female who presents for Routine Visit Patient presents today for Return OB appointment. Current Medications: has a current medication list which includes the following prescription(s): glucose blood, lantus solostar, insulin pen needle, metformin xr, pantoprazole, sertraline, and metoclopramide. Medical History: Active Ambulatory Problems Diagnosis Date Noted Abnormal glucose level 01/13/2023 Anxiety 06/29/2020 Dyspareunia in female 11/30/2020 Heartburn 01/13/2023 Indigestion 01/13/2023 Insomnia due to other mental disorder 05/02/2020 Other fatigue 05/02/2020 Frequent UTI 11/30/2020 23 weeks gestation of ([facility]) 02/26/2025 Elevated blood sugar level 02/26/2025 Resolved Ambulatory Problems Diagnosis Date Noted Missed period 01/13/2023 Past Medical History: Diagnosis Date GDM (gestational diabetes mellitus) ([facility]) Family History[1] Social History Tobacco Use Smoking status: Never Smokeless tobacco: Never Substance Use Topics Alcohol use: Never Drug use: Never Surgical History[2] Allergies[3] Review of Systems: Review of Systems Constitutional: [...] nursing note reviewed. Exam conducted with a tank worker present. Vitals: Estimated body mass index is 38.38 kg/m?? as calculated from the following: Height as of 01/30/23: 5' 6 . Weight as of this encounter: 237 lb 12.8 oz. BP: 138/80 Patient's last menstrual period was 09/16/2024. Assessment/Plan Encounter Diagnosis: ICD-10-CM 1. 37 weeks gestation of ([facility]) Z3A.37 POCT urinalysis dipstick manually resulted 2. Third trimester ([facility]) Z34.93 POCT urinalysis dipstick manually resulted 3. Insulin controlled gestational diabetes mellitus (GDM) during , antepartum ([facility]) O24.414 4. Gestational diabetes mellitus (GDM), antepartum, gestational diabetes method of control unspecified ([facility]) O24.419 insulin glargine (Lantus SoloStar) 100 UNIT/ML pen Return OB: Patient presents today for a routine obstetrics appointment. Patient is currently 37w0d . Patient states she is doing well but has complaints of being tired due to current . Patient has verbalizes frequent movement. labor precautions was discussed/given and patient was instructed to perform kick counts three times a day. Orders Placed This Encounter Procedures POCT urinalysis dipstick manually resulted Follow Up: Patient is to return to office in 1 week for routine OB appointment. Documented by Mukul Foy DO on behalf of: Mukul Foy DO [1] No family history on file. [2] Past Surgical History: Procedure Laterality Date APPENDECTOMY SECTION, LOW TRANSVERSE 01/19/2023 DILATION AND CURETTAGE OF UTERUS [3] No Known Allergies documented in this encounter Plan of Treatment DateTypeDepartmentCare Team (Latest Contact Info)Eqqgusnebfq72/05/2026 4:00 PM ESTOffice Visit [facility] [address] [place] [phone] Mukul Foy DO [address] [place] [address] documented as of this encounter Goals GoalPatient Goal TypeAssociated ProblemsRecent ProgressPatient-Stated?Author Reminders Care PlanOB RemindersNoOpen Scheduling, Backgrounddocumented as of this encounter Procedures Procedure NamePriorityDate/TimeAssociated DiagnosisCommentsPOCT URINALYSIS SUXRINWFMhxyvtm11/10/2025 1:25 PM EST 37 weeks gestation of ([facility]) Third trimester ([facility]) documented in this encounter Results * POCT urinalysis dipstick manually resulted (06/02/2025 1:25 PM EST)Component ValueRef RangeTest MethodAnalysis TimePerformed AtPathologist SignatureColor, UAYellowClarity, UACloudyGlucose, UANegativeNegative - 2000(110) ++++ mg/dL Bilirubin, UANegativeNegative - 4(70) +++ mg/dLKetones, UANegativeNegative - 160(16) ++++ mg/dLSpec Grav, UA1.0151 - 1.03Blood, UANegativeNegative - 50 Yunior/mcLpH, UA6.55 - 9Protein, UANegativeNegative - 2000(20) ++++ mg/dL Urobilinogen, UA1.00.2 - 12 mg/dLLeukocytes, UANegativeNegative - 500+++ Trip/mcLNitrite, UANegativeNegative - PositiveSpecimen (Source)Anatomical Location / LateralityCollection Method / VolumeCollection TimeReceived Time Urine06/02/2025 1:25 PM EST Narrative Authorizing ProviderResult TypeResult StatusCorey Law DOPOINT OF CARE TEST ENTER/EDIT ORDERABLESFinal Result documented in this encounter Visit Diagnoses Diagnosis 37 weeks gestation of ([facility]) Third trimester ([facility]) state, incidental Insulin controlled gestational diabetes mellitus (GDM) during , antepartum ([facility]) Gestational diabetes mellitus (GDM), antepartum, gestational diabetes method of control unspecified([facility]) documented in this encounter Additional Health Concerns Active ProblemsNoted DateDiagnosed DateOB Gpcvjnwsj48/09/2025 documented as of this encounter
--- OUTSIDE RECORDS SUMMARY | 2025-06-04 16:03 | XMS_ITS | Encounter Summary ---
Author Organization [facility] Address [address] [place] [address] Care Team Providers Care Circulation Man Name Role Phone Unavailable Primary Care Provider Unavailabl e Encounter Details DateTypeDepartmentCare Team (Latest Contact Info)Hhzoljgdtpw42/29/2025Clinisync Result Encounter [facility] External Department Unsolicited Britt Foy, DO [address] [place], [place] [phone] Social History Tobacco UseTypesPacks/DayYears UsedDateSmoking Tobacco: NeverSmokeless Tobacco: NeverAlcohol UseStandard Drinks/WeekCommentsNever0 (1 standard drink = 0.6 oz pure alcohol)Estimated Date of QavpxgjqSjwlhmsyFtq91/01/2025Based on last menstrual period of 09/16/2024Sex and Gender InformationValueDate Recorded Sex Assigned at BirthNot on fileLegal AqvYktdxj87/15/2023 11:47 PM EDTGender IdentityNot on fileSexual OrientationNot on filedocumented as of this encounter Plan of Treatment DateTypeDepartmentCare Team (Latest Contact Info)Voxwkvztelj14/05/2026 4:00 PM ESTOffice Visit [facility] [place] [facility] [address] [place] [phone] Britt Foy, [address] [place] [address] documented as of this encounter Goals GoalPatient Goal TypeAssociated ProblemsRecent ProgressPatient-Stated?Author Reminders Care PlanOB RemindersNoOpen Scheduling, Backgrounddocumented as of this encounter Procedures Procedure NamePriorityDate/TimeAssociated DiagnosisCommentsUS OB BPP W NON-YDHETW7405/21/2025 7:56 PM EDT documented in this encounter Results * US OB BPP W NON-STRESS (05/21/2025 7:56 PM EDT)Anatomical Region LateralityModalityOtherSpecimen (Source)Anatomical Location / Laterality Collection Method / VolumeCollection TimeReceived Time05/21/2025 7:56 PM EDT Narrative 05/21/2025 7:59 PM EDT [facility] ?[address] ? [place] [address] ? Ultrasound Report ? Signed ? Patient: ARVINCECELIAVINNY ?MR#: [id number] ?? : 2000 ?Acct:[id number] ?? Age/Sex: 24 / F ?ADM Date: 05/21/25 ?? Loc: US ? Attending Dr: Britt Foy D.O. ? Ordering Physician: Britt Foy D.O. ?? Date of Service: 05/21/25 ?? Procedure(s): US OB BPP w non-stress ?? Accession Number(s): [id number] ? cc: Britt Foy D.O.; Ynes Mistry GOVERNMENT PROPERTY INSPECTOR ? [facility] ? [address] ? [place] [address] ? Patient Name: ?? VINNY HERRERA ? MRN: [id number] ? date: 2000 ?Sex: F ?? Assigned Patient Location: [facility] ?? Current Patient Location: ? Accession/Order Number: [id number] ?? Exam Date: 05/21/2025 ??16:12 ?Report Date: [...] Dictation Location: [facility]PC-29 ? Electronically authenticated by: [id number] ??Y ?? Date: 05/21/2025 ??19:56 ? Dictated By: ?Chevy Moreland M.D. ? Signed By: ?05/21/251958 ? DD/ 55 ? TD/TT: ? Sales Warehouse Driver: Procedure Note Radiology, Radiologist, MD - 05/21/2025 [place] [address] Ultrasound Report Signed Patient: VINNY HERRERA CMR#: [id number] : 2000Acct:[id number] Age/Sex: 24 / FADM Date: 05/21/25 Loc: US Attending Dr: Britt Foy D.O. Ordering Physician: Britt Foy D.O. Date of Service: 05/21/25 Procedure(s): US OB BPP w non-stress Accession Number(s): [id number] cc: Britt Foy D.O.; Ynes Mistry GOVERNMENT PROPERTY INSPECTOR The [place] [address] Patient Name: VINNY HERRERA MRN: [facility]:[id number] date: 2000 Sex: F Assigned Patient Location: [facility] Current Patient Location: Accession/Order Number: [id number] Exam Date: 05/21/2025 16:12 Report Date: 05/21/2025 19:56 At the request of: BRITT FOY DO Procedure: US OB BPP w non-stress Ultrasound biophysical profile INDICATION: Gestational diabetes COMPARISON: 05/07/2025 FINDINGS/IMPRESSION:: Fetus cephalic position. 8/8 score biophysical profile. heart rate 139 beats per minutes. JAMAL 19.1 cm . Impression dictated by: Chevy Moreland M.D. 05/21/2025 7:56 PM Dictation Location: [place] [address] Electronically authenticated by: [id number] Y Date: 9:56 Dictated By: Chevy Moreland M.D. Signed By:05/21/251958 DD/ 55 TD/TT: Sales Warehouse Driver: Authorizing ProviderResult TypeResult StatusCorey Law DOCLINISYNC IMAGINGFinal Result documented in this encounter Visit Diagnoses Not on filedocumented in this encounter Additional Health Concerns Active ProblemsNoted DateDiagnosed DateOB Rpkjyrbne78/09/2025 documented as of this encounter
--- OUTSIDE RECORDS SUMMARY | 2025-06-04 16:03 | XMS_ITS | Encounter Summary ---
Author Organization [facility] Address [address] [place] [address] Care Team Providers Care Prototype Assembler Electronics Name Role Phone Unavailable Primary Care Provider Unavailabl e Encounter Details DateTypeDepartmentCare Team (Latest Contact Info)Hwqcuyhruwf93/20/2025linisync Result Encounter [facility] External Department Unsolicited Mukul Foy, DO [address] [place], [place] [phone] Social History Tobacco UseTypesPacks/DayYears UsedDateSmoking Tobacco: NeverSmokeless Tobacco: NeverAlcohol UseStandard Drinks/WeekCommentsNever0 (1 standard drink = 0.6 oz pure alcohol)Estimated Date of AyvwansiSxrcrjjrXnl85/01/2025Based on last menstrual period of 09/16/2024Sex and Gender InformationValueDate Recorded Sex Assigned at BirthNot on fileLegal YepToeahm93/15/2023 11:47 PM EDTGender IdentityNot on fileSexual OrientationNot on filedocumented as of this encounter Plan of Treatment DateTypeDepartmentCare Team (Latest Contact Info)Hfbeazwqqzd00/05/2026 4:00 PM ESTOffice Visit [facility] [place] [facility] [address] [place] [phone] Mukul Foy DO [address] [place] [address] documented as of this encounter Goals GoalPatient Goal TypeAssociated ProblemsRecent ProgressPatient-Stated?Author Reminders Care PlanOB RemindersNoOpen Scheduling, Backgrounddocumented as of this encounter Procedures Procedure NamePriorityDate/TimeAssociated DiagnosisCommentsURINE CULTURE, FCRHRALWdkjoph17/20/2025 9:55 AM EDT [facility] UA (CLEAN/CATCH) GRAIN MERCHANDISER/MICRO IF IND.Uphrouv7105/12/2025 9:55 AM EDT documented in this encounter Results * URINE CULTURE, ROUTINE (05/12/2025 9:55 AM EDT)ComponentValueRef RangeTest MethodAnalysis TimePerformed AtPathologist SignatureURINE CULTURE, ROUTINE ??Urine Culture, Routine TBHURINE CULTURE, ROUTINEMixed urogenital floraTBHURINE CULTURE, CSWXTTL99,000- 25,000 colony forming units per mLTBHURINE CULTURE, ROUTINEPerformed at: [facility] HospitalTBHURINE CULTURE, [id number] [place], [place] [id number] URINE CULTURE, ROUTINELab Director: Elian Mccray PhD, Phone: [phone] Specimen (Source)Anatomical Location / LateralityCollection Method / Volume Collection TimeReceived Time05/12/2025 9:55 AM EDT1 10:35 AM EDT Narrative [facility] - 05/13/2025 11:10 PM EDT Authorizing ProviderResult TypeResult StatusCorey Law DOLAB BLOOD ORDERABLES Final ResultPerforming OrganizationAddressCity/State/ZIP CodePhone Number [facility] TB * (ABNORMAL) [facility] UA (CLEAN/CATCH) GRAIN MERCHANDISER/MICRO IF IND. (05/12/2025 9:55 AM EDT) ComponentValueRef RangeTest MethodAnalysis TimePerformed AtPathologist SignatureCOLOR URINELT. YELLOWYELLOWTBHCLARITY URINECLEARCLEARTBHSPECIFIC GRAVITY URINE<=1.005(A)1.005 - 1.025TBHPH URINE7.05.0 - 9.0TBHPROTEIN URINE NEGATIVENEG/TRACE mg/dLTBHGLUCOSE URINE UANEGATIVENEGATIVE mg/dLTBHBILIRUBIN URINENEGATIVENEGATIVETBHKETONES URINENEGATIVENEGATIVE mg/dLTBHBLOOD URINE NEGATIVENEGATIVETBHNITRITE URINENEGATIVENEGATIVETBHUROBILINOGEN URINE0.20.2 - 1.0 EU/dLTBHLEUKOCYTE ESTERASE URINESMALL(A)NEGATIVETBHURINE MICROSCOPIC INDICATEDYESTBHSpecimen (Source)Anatomical Location / LateralityCollection Method / VolumeCollection TimeReceived Time05/12/2025 9:55 AM EDT1 10:35 AM EDT Narrative [facility] - 05/12/2025 10:51 AM EDT Authorizing ProviderResult TypeResult StatusCorey Law DOCLINISYNCFinal Result Performing OrganizationAddressCity/State/ZIP CodePhone Number [facility] [employer] [facility] documented in this encounter Visit Diagnoses Not on filedocumented in this encounter Additional Health Concerns Active ProblemsNoted DateDiagnosed DateOB Akmplmuek15/09/2025 documented as of this encounter
--- OUTSIDE RECORDS SUMMARY | 2025-06-04 16:03 | XMS_ITS | Encounter Summary ---
Author Organization [facility] Address [address] [place] [address] Care Team Providers Care Soaker Hides Name Role Phone Unavailable Primary Care Provider Unavailabl e Encounter Details DateTypeDepartmentCare Team (Latest Contact Info)Mpqdbfcvakk31/22/2025linisync Result Encounter [facility] External Department Unsolicited Britt Foy, DO [address] [place], [place] [phone] Social History Tobacco UseTypesPacks/DayYears UsedDateSmoking Tobacco: NeverSmokeless Tobacco: NeverAlcohol UseStandard Drinks/WeekCommentsNever0 (1 standard drink = 0.6 oz pure alcohol)Estimated Date of MezefopfGernviimQnz45/01/2025Based on last menstrual period of 09/16/2024Sex and Gender InformationValueDate Recorded Sex Assigned at BirthNot on fileLegal KotCdhuhk38/15/2023 11:47 PM EDTGender IdentityNot on fileSexual OrientationNot on filedocumented as of this encounter Plan of Treatment DateTypeDepartmentCare Team (Latest Contact Info)Ffkslmgmcwq38/05/2026 4:00 PM ESTOffice Visit [facility] [place] [facility] [address] [place] [phone] Britt Foy, [address] [place] [address] documented as of this encounter Goals GoalPatient Goal TypeAssociated ProblemsRecent ProgressPatient-Stated?Author Reminders Care PlanOB RemindersNoOpen Scheduling, Backgrounddocumented as of this encounter Procedures Procedure NamePriorityDate/TimeAssociated DiagnosisCommentsUS OB BPP W NON-GGBKNE7905/14/2025 10:20 PM EDT documented in this encounter Results * US OB BPP W NON-STRESS (05/14/2025 10:20 PM EDT)Anatomical Region LateralityModalityOtherSpecimen (Source)Anatomical Location / Laterality Collection Method / VolumeCollection TimeReceived Time05/14/2025 10:20 PM EDT Narrative 05/14/2025 10:[address] [facility] ?[address] ? [place] [address] ? Ultrasound Report ? Signed Patient: VINNY HERRERA ?MR#: [id number] : 2000 ?Acct:[id number] Age/Sex: 24 / F ?ADM Date: 05/14/25 Loc: US Attending Dr: Britt Foy D.O. Ordering Physician: Britt Foy D.O. Date of Service: 05/14/25 Procedure(s): OB BPP w non-stress Accession Number(s): [id number] cc: Britt Foy D.O.; Ynes Mistry INTERNATIONAL SALES MANAGER ? [facility] ? [address] [place] [address] Street ? [place] [address] ? Patient Name: VINNY HERRERA MRN: [id number] ? date: 2000 ?Sex: F Assigned Patient Location: US Current Patient Location: [facility] Accession/Order Number: [id number] Exam Date: 05/14/2025 ??16:00 ?Report Date: 05/14/2025 ??22:20 At the request of: BRITT ??LAW ??DO Procedure: ??US OB BPP w non-stress Ultrasound biophysical profile INDICATION: Gestational diabetes COMPARISON: 05/07/2025 FINDINGS/IMPRESSION:: Fetus cephalic position. ?? 8/8 score biophysical profile. ?? heart rate 1:30 beats per minutes. ??JAMAL 17.4 cm . Impression dictated by: Chevy Moreland M.D. ??05/14/2025 10:20 PM Dictation Location: [facility] Electronically authenticated by: [id number] ??Y ?? Date: 05/14/2025 ??22:20 Dictated By: ?Chevy Moreland M.D. Signed By: ?05/14/252222 DD/ 19 TD/TT: ? Target Protection Specialist: Procedure Note Radiology, Radiologist, - 06/03/2025 [place] [address] Ultrasound Report Signed Patient: VINNY HERRERA CMR#: [id number] : 2000Acct:[id number] Age/Sex: 24 / FADM Date: 05/14/25 Loc: US Attending Dr: Britt Foy D.O. Ordering Physician: Britt Foy D.O. Date of Service: 05/14/25 Procedure(s): US OB BPP w non-stress Accession Number(s): [id number] cc: Britt Foy D.O.; Ynes Mistry INTERNATIONAL SALES MANAGER The [place] [address] Patient Name: VINNY HERRERA MRN: [facility]:[id number] date: 2000 Sex: F Assigned Patient Location: Current Patient Location: [facility] Accession/Order Number: [id number] Exam Date: 05/14/2025 16:00 Report Date: 05/14/2025 22:20 At the request of: BRITT FOY DO Procedure: US OB BPP w non-stress Ultrasound biophysical profile INDICATION: Gestational diabetes COMPARISON: 05/07/2025 FINDINGS/IMPRESSION:: Fetus cephalic position. 8/8 score biophysical profile. heart rate 1:30 beats per minutes. JAMAL 17.4 cm . Impression dictated by: Chevy Moreland M.D. 05/14/2025 10:20 PM Dictation Location: [place] [address] Electronically authenticated by: [id number] Y Date: 2:20 Dictated By: Chevy Moreland M.D. Signed By:05/14/252222 DD/ 19 TD/TT: Target Protection Specialist: Authorizing ProviderResult TypeResult StatusCorey Law DOCLINISYNC IMAGINGFinal Result documented in this encounter Visit Diagnoses Not on filedocumented in this encounter Additional Health Concerns Active ProblemsNoted DateDiagnosed DateOB Eirdqhjgd63/09/2025 documented as of this encounter
--- OUTSIDE RECORDS SUMMARY | 2025-06-04 16:03 | XMS_ITS | Encounter Summary ---
Author Organization [facility] Address [address] [place] [address] Care Team Providers Care Foundation Coordinator Name Role Phone Unavailable Primary Care Provider Unavailabl e Encounter Details DateTypeDepartmentCare Team (Latest Contact Info)Lftzugxymqo10/16/2025Clinisync Result Encounter [facility] External Department Unsolicited Britt Foy, DO [address] [place], [place] [phone] Social History Tobacco UseTypesPacks/DayYears UsedDateSmoking Tobacco: NeverSmokeless Tobacco: NeverAlcohol UseStandard Drinks/WeekCommentsNever0 (1 standard drink = 0.6 oz pure alcohol)Estimated Date of WenrghenKxukzspfJch03/01/2025Based on last menstrual period of 09/16/2024Sex and Gender InformationValueDate Recorded Sex Assigned at BirthNot on fileLegal VkiMizbxg34/15/2023 11:47 PM EDTGender IdentityNot on fileSexual OrientationNot on filedocumented as of this encounter Plan of Treatment DateTypeDepartmentCare Team (Latest Contact Info)Swarmkiyvce33/05/2026 4:00 PM ESTOffice Visit [facility] [place] [facility] [address] [place] [phone] Britt Foy DO [address] [place] [address] documented as of this encounter Goals GoalPatient Goal TypeAssociated ProblemsRecent ProgressPatient-Stated?Author Reminders Care PlanOB RemindersNoOpen Scheduling, Backgrounddocumented as of this encounter Procedures Procedure NamePriorityDate/TimeAssociated DiagnosisCommentsUS OB BPP W NON-QGYBCM0705/08/2025 12:28 AM EDT documented in this encounter Results * US OB BPP W NON-STRESS (05/08/2025 12:28 AM EDT)Anatomical Region LateralityModalityOtherSpecimen (Source)Anatomical Location / Laterality Collection Method / VolumeCollection TimeReceived Time05/08/2025 12:28 AM EDT Narrative 05/08/2025 12:30 AM EDT [facility] ?[address] ? [place] [address] ? Ultrasound Report ? Signed Patient: VINNY HERRERA ?MR#: [id number] : 2000 ?Acct:[id number] Age/Sex: 24 / F ?ADM Date: 05/07/25 Loc: US Attending Dr: Britt Foy D.O. Ordering Physician: Britt Foy D.O. Date of Service: 05/07/25 Procedure(s): US OB BPP w non-stress Accession Number(s): [id number] cc: Britt Foy D.O.; Ynes Mistry GRAIN COMBINE DRIVER ? [facility] ? [address] [place] [address] ? [place] [address] ? Patient Name: VINNY HERRERA MRN: [id number] ? date: 2000 ?Sex: F Assigned Patient Location: Current Patient Location: Accession/Order Number: [id number] Exam Date: 05/07/2025 ??16:45 ?Report Date: 05/08/2025 ??00:28 At the request of: BRITT ??LAW ??DO Procedure: ??US OB BPP w non-stress US OB BPP w non-stress ??05/07/2025 5:57 PM SIGNS AND SYMPTOMS: 06/23/2025 GESTATIONAL DIABETES MELLITUS 024.419 PROTOCOL: Transabdominal sonographic images of the gravid uterus COMPARISON: None FINDINGS: Estimated gestational age: 33 weeks 2 days heart rate: 127 bpm Amniotic fluid index: 16.03 cm. ??The deepest vertical pocket measures 6.47 cm. Biophysical profile: breathing movements: 2/2 Gross body movements: 2/2 tone: 2/2 Amniotic fluid volume: 2/2 US/US OB BPP w non-stress IMPRESSION: Biophysical profile score: 8/8 Impression dictated by: Pavel Yepez M.D. ??05/08/2025 12:28 AM Dictation Location: [employer] Electronically authenticated by: [id number] ??Y ?? Date: 05/08/2025 ??00:28 Dictated By: ?Pavel Yepez M.D. Signed By: ?05/08/25 0030 DD/ 0028 TD/TT: ? Radio Dispatcher: Procedure Note Radiology, Radiologist, - 06/03/2025 [place] [address] Ultrasound Report Signed Patient: VINNY HERRERA CMR#: [id number] : 2000Acct:[id number] Age/Sex: 24 / FADM Date: 05/07/25 Loc: US Attending Dr: Britt Foy D.O. Ordering Physician: Britt Foy D.O. Date of Service: 05/07/25 Procedure(s): US OB BPP w non-stress Accession Number(s): [id number] cc: Britt Foy D.O.; Ynes Mistry NP The [place] [id number] Patient Name: VINNY HERRERA MRN: [id number] date: 2000 Sex: F Assigned Patient Location: US Current Patient Location: Accession/Order Number: [id number] Exam Date: 05/07/2025 16:45 Report Date: 05/08/2025 00:28 At the request of: BRITT FOY DO Procedure: US OB BPP w non-stress US OB BPP w non-stress 05/07/2025 5:57 PM SIGNS AND SYMPTOMS: 06/23/2025 GESTATIONAL DIABETES MELLITUS 024.419 PROTOCOL: Transabdominal sonographic images of the gravid uterus COMPARISON: None FINDINGS: Estimated gestational age: 33 weeks 2 days heart rate: 127 bpm Amniotic fluid index: 16.03 cm. The deepest vertical pocket measures 6.47cm. Biophysical profile: breathing movements: 2/2 Gross body movements: 2/2 tone: 2/2 Amniotic fluid volume: 2/2 US/US OB BPP w non-stress IMPRESSION: Biophysical profile score: 8/8 Impression dictated by: Pavel Yepez M.D. 05/08/2025 12:28 AM Dictation Location: [address]ENTER Electronically authenticated by: [id number] Y Date: 500:28 Dictated By: Pavel Yepez M.D. Signed By:05/08/25 0030 DD/ 0028 TD/TT: Radio Dispatcher: Authorizing ProviderResult TypeResult StatusCorey Law DOCLINISYNC IMAGINGFinal Result documented in this encounter Visit Diagnoses Not on filedocumented in this encounter Additional Health Concerns Active ProblemsNoted DateDiagnosed DateOB Ixevchifn28/09/2025 documented as of this encounter
--- OUTSIDE RECORDS SUMMARY | 2025-06-04 16:03 | XMS_ITS | Encounter Summary ---
Author Organization [facility] Address [address] [place] [address] Care Team Providers Care Web Developer Programmer Name Role Phone Unavailable Primary Care Provider Unavailabl e Encounter Details DateTypeDepartmentCare Team (Latest Contact Info)Mdwtzwwabop51/05/2025linisync Result Encounter [facility] External Department Unsolicited Regina Barton, JOSEPH [address] [facility] [address] [place], [facility] [address] [address] Social History Tobacco UseTypesPacks/DayYears UsedDateSmoking Tobacco: NeverSmokeless Tobacco: NeverAlcohol UseStandard Drinks/WeekCommentsNever0 (1 standard drink = 0.6 oz pure alcohol)Estimated Date of QrxliggmTebgrrhnNoi05/01/2025Based on last menstrual period of 09/16/2024Sex and Gender InformationValueDate Recorded Sex Assigned at BirthNot on fileLegal IcmOxensx91/15/2023 11:47 PM EDTGender IdentityNot on fileSexual OrientationNot on filedocumented as of this encounter Plan of Treatment DateTypeDepartmentCare Team (Latest Contact Info)Apluwqrafmk37/05/2026 4:00 PM ESTOffice Visit [facility] [address] [facility] [place] [address] Mukul Foy DO [address] [facility] [address] [place], [facility] [address] [address] documented as of this encounter Goals GoalPatient Goal TypeAssociated ProblemsRecent ProgressPatient-Stated?Author Reminders Care PlanOB RemindersNoOpen Scheduling, Backgrounddocumented as of this encounter Procedures Procedure NamePriorityDate/TimeAssociated DiagnosisCommentsSTREP GP B CULTURE+HQTDOeqqfzb46/05/2025 2:40 PM EST documented in this encounter Results * STREP GP B CULTURE+RFLX (05/28/2025 2:40 PM EST)ComponentValueRef RangeTest MethodAnalysis TimePerformed AtPathologist SignatureSTREP GP B CULTURE+RFLX ??Strep Gp B Culture+Rflx TBHSTREP GP B CULTURE+RFLXNegativeTBHSTREP GP B CULTURE+RFLXCenters for Disease Control and Prevention (CDC) andTBHSTREP GP B CULTURE+RFLXAmerican Congress of Obstetricians and GynecologistsTBHSTREP GP B CULTURE+RFLX(ACOG) guidelines for prevention of group BTBHSTREP GP B CULTURE+RFLXstreptococcal (GBS) disease specify co-collection ofTBHSTREP GP B CULTURE+RFLXa vaginal and rectal swab specimen to maximizeTBHSTREP GP B CULTURE+RFLXsensitivity of GBS detection. Per the CDC and ACOG,TBHSTREP GP B CULTURE+RFLXswabbing both the lower vagina and rectumTBHSTREP GP B CULTURE+RFLXsubstantially increases the yield of detectionTBHSTREP GP B CULTURE+RFLXcompared with sampling the vagina alone.TBH STREP GP B CULTURE+RFLXPenicillin G, ampicillin, or cefazolin are indicatedTBH STREP GP B CULTURE+RFLXfor intrapartum prophylaxis of GBSTBHSTREP GP B CULTURE+RFLXcolonization. Reflex susceptibility testing should beTBHSTREP GP B CULTURE+RFLXperformed prior to use of clindamycin only on GBSTBHSTREP GP B CULTURE+RFLXisolates from penicillin-allergic women who areTBHSTREP GP B CULTURE+RFLXconsidered a high risk for anaphylaxis. Treatment withTBHSTREP GP B CULTURE+RFLXvancomycin without additional testing is warranted ifTBHSTREP GP B CULTURE+RFLXresistance to clindamycin is noted.TBHSTREP GP B CULTURE+RFLX Performed at: [facility]+RXLB9404 [place], [place] [id number] GP B CULTURE+RFLXLab Director: Elian Mccray PhD, Phone: [phone] (Source)Anatomical Location / Laterality Collection Method / VolumeCollection TimeReceived Time05/28/2025 2:40 PM EST 05/28/2025 9:05 PM EST Narrative [facility] - 06/02/2025 5:09 PM EST Authorizing ProviderResult TypeResult StatusAmy [facility] BLOOD ORDERABLES Final ResultPerforming OrganizationAddressCity/State/ZIP CodePhone Number [facility] documented in this encounter Visit Diagnoses Not on filedocumented in this encounter Additional Health Concerns Active ProblemsNoted DateDiagnosed DateOB Otaicdnni55/09/2025 documented as of this encounter
--- OUTSIDE RECORDS SUMMARY | 2025-06-04 16:03 | XMS_ITS | Encounter Summary ---
Author Organization [facility] Address [address] [facility] [place] [address] Care Team Providers Care Fibrous Plasterer Name Role Phone Unavailable Primary Care Provider Unavailabl e Encounter Details DateTypeDepartmentCare Team (Latest Contact Info)Tdoqghpiuwl67/10/2025Telephone [facility] [address] [place] [address] [place] [address] Jo Ann Isabel LPN Social History Tobacco UseTypesPacks/DayYears UsedDateSmoking Tobacco: NeverSmokeless Tobacco: NeverAlcohol UseStandard Drinks/WeekCommentsNever0 (1 standard drink = 0.6 oz pure alcohol)Estimated Date of BgzgvdhvRzuyzywbIyk81/01/2025Based on last menstrual period of 09/16/2024Sex and Gender InformationValueDate Recorded Sex Assigned at BirthNot on fileLegal MjaVyvddo53/15/2023 11:47 PM EDTGender IdentityNot on fileSexual OrientationNot on filedocumented as of this encounter Miscellaneous Notes * Telephone Encounter - Jo Ann Isabel LPN - 06/02/2025 4:33 PM EST 2:35pm 06/02/25 Nelda from [facility] called an LMOM inquiring about dosage of patients insulin that she is to take the night before scheduled on 06/09/25. Nelda request either a call back or for nursing to reach out to patient to discuss/inform her of insulin dosage. Jo Ann Hamilton LPN 06/04/25 11:16am Called patient after talking with Dr. Foy and left detailed message for her personal voicemail stating that she is able to take her routine dosage as it is a longer acting insulin.Informed patient that if she had any questions/concerns to reach out to office. Jo Ann Hamilton LPN documented in this encounter Plan of Treatment DateTypeDepartmentCare Team (Latest Contact Info)Abjfypfjujq65/05/2026 4:00 PM ESTOffice Visit [facility] [address] [facility] [phone] Mukul Foy, [address] [facility] [place] [address] documented as of this encounter Goals GoalPatient Goal TypeAssociated ProblemsRecent ProgressPatient-Stated?Author Reminders Care PlanOB RemindersNoOpen Scheduling, Backgrounddocumented as of this encounter Visit Diagnoses Not on filedocumented in this encounter Additional Health Concerns Active ProblemsNoted DateDiagnosed DateOB Nzilychbo46/09/2025 documented as of this encounter
--- NOTE | 2025-06-04 16:04 | US_ITS ---
The [address] [address] Patient Name: VINNY HERRERA MRN: [id number] date: 2000 Sex: F Assigned Patient [facility]: [facility] Current Patient Location: Accession/Order Number: [id number] Exam Date: 06/04/2025 16:09 Report Date: 06/05/2025 08:26 At the request of: BRITT HOLDER DO Procedure: US OB BPP w non-stress BIOPHYSICAL PROFILE: CLINICAL INFORMATION: THIRD TRIMESTER Z34.93 COMPARISON: 05/28/2025 There is a single live intrauterine gestation in cephalic presentation. The reported gestational age is 37 weeks 2 days. The heart rate measures 145 beats per minute. FINDINGS: TONE: 1 or more episodes of activity extension and flexion of extremity or opening and closing of the hand [Y] 2/2 GROSS BODY MOVEMENTS: 3 or more discrete body or limb movements [Y] 2/2 BREATHING MOVEMENTS: 1 or more episodes of breathing lasting at least 30 seconds [Y] 2/2 JAMAL: A single deepest vertical pocket of amniotic fluid greater than 2 cm [Y] 2/2 JAMAL: 13.6 cm Total score: 8/8 US/US OB BPP w non-stress IMPRESSION: NORMAL BIOPHYSICAL PROFILE Impression dictated by: Criselda Flores M.D. 06/05/2025 8:26 AM Dictation Location: [place] [address] Electronically authenticated by: [id number] Y Date: 06/05/2025 08:26
--- OUTSIDE RECORDS SUMMARY | 2025-06-04 16:04 | XMS_ITS | Clinical Summary ---
Author Organization [facility] Address [address], [address] [place] [address] Care Team Providers Care Geographic Information Scientist Name Role Phone Ynes Mistry MANGLE TENDER - EVENT MGR Primary Care Provide r Allergies No known [...] [address] 200 mg vaginally dvelgvg73/26/2025Active sertraline (ZOLOFT) 25 MG tablet TAKE 1 TABLET BY MOUTH EVERY DAY 30 tablet 5Active sertraline (ZOLOFT) 25 MG tablet Take 1 tablet by mouth daily 30 tablet Discontinued Active Problems ProblemNoted DateDiagnosed DateGastroesophageal reflux yhroesr8611/12/2024Other hyperlipidemia [E78.49]06/04/20240717Asoiyyq41/12/2024Hepatic iclgwstnf62/14/2024 Elevated liver tmyfdgh4403/01/2024Mixed jpjgrbfuwdxkhr23/30/2024Iron deficiency owzoaf2710/25/2023Gestational diabetes mellitus (GDM) affecting second 07/24/20226656Bdibwlz77/07/2020Seasonal allergic mtunyhvz37/07/2020Other fatigue 05/02/2020 Resolved Problems ProblemNoted DateDiagnosed DateResolved DateSore menhoi59503/ne /Irregular ekptmt48/Frequent UTI11/30/2020 02/20/2024yspareunia in lorjci69/Insomnia due to other mental rbzrjeem10 Encounters DateTypeDepartmentCare NxzuHckrexajvcx76/10/2025Orders Only [address] [place] [address] ProviderYuval MD 05/28/2025Refill [address] [place] [address] Ynes Mistry, MANGLE TENDER - EVENT MGR Medication Vhaayz3705/22/2025Orders Only [address] [place] [address] Ynes Mistry, MANGLE TENDER - EVENT MGR 05/13/2025Orders Only [address] [place] [address] Yuval Lobato MD 05/01/2025Orders Only [address] [place] [address] ProviderYuval MD from Last 3 Months Immunizations ImmunizationAdministration DatesNext DueCOVID-19, Inactive, PFIZER PURPLE top, DILUTE for use, (age 12 y+)12/29/2020,5321UFwM21/29/2004,03/13/2000, 03/12/1999,01/18/1999,1998DTaP, INFANRIX, (age 6w-6y), IM, 0.5mL11/20/2003 ,03/13/2000,03/12/1999,01/18/1999,1998HPV [...] has the electric, gas, oil, or water [employer] threatened to shut off services in your home?No10/07/2024Overall Financial Resource Strain (CARDIA)AnswerDate Recorded How hard is it for you to pay for the very basics like food, housing, medical care, and heating?Not hard at all07/13/2023HQ-2AnswerDate RecordedPHQ-9 Total Xslln995Hunger Vital SignAnswerDate RecordedWithin the past 12 months, [...] steady place to sleep or slept in [place] (including now)?No07/13/2023Housing Stability Vital SignAnswerDate RecordedIn the last 12 months, was there a time when you were not able to pay the mortgage or rent on time?No10/07/2024In the past 12 months, how many times have you moved where you were living? At any time in the past 12 months, were you homeless or living in a senior care (including now)?No10/07/2024Food InsecurityAnswerDate RecordedWithin the past 12 months, you worried that your food would run out before you got the money to buymore.Within the past 12 months, the food you bought just didn't last and you didn't have money to get more.CommentsNoSex and Gender InformationValueDate RecordedSex Assigned at YbakrHtqqic52/28/2024 8:24 PM EDTLegal IcbDncsuq28/10/2013 3:31 PM ESTGender BpvpvhtgFnnmpj43/28/2024 8:24 PM EDTSexual OrientationNot on file Last Filed Vital Signs Vital SignReadingTime TakenCommentsBlood Ldswwxog404/7204 11:39 AM EDT Fhphp5505 11:39 AM WYNTobybyejpbi90.1 ??C (96.9 ??F)11/12/2024 11:39 AM EDTRespiratory Gdnm629910/07/2024 1:43 PM EDTOxygen Zpckdgggcp49%11/12/2024 11:39 AM EDTInhaled Oxygen Concentration--Kvcjsw74.1 kg (203 lb)11/12/2024 11:39 AM ZHSSotoiz008.1 cm (5' 5 )10/07/2024 1:43 PM EDTBody Mass Index33.7803 1:43 PM EDT Plan of Treatment Health MaintenanceDue DateLast DoneCommentsDTaP/Tdap/Td vaccine (7 - Td or Tdap) /, 11/20/2003, 11/20/2003, Additional history existsFlu vaccine (#1)5COVID-19 Vaccine ( season)/02/2021, 1Depression Qnxfml916008/07/2024, 08/07/2024Pap smear07/15/2027 07/15/2024, 07/15/2023, 07/05/2023, Additional history existsHepatitis B vaccine Agaxyiyte66/17/1999, 1998, 1998Hib vklzmqrGajzzgqxx09/21/2000, 03/12/1999, 01/18/1999, Additional history existsPolio vaccineCompleted 11/20/2003, 03/13/2000, 01/18/1999, Additional history existsVaricella vaccine Qxumjwqrh89/20/2011, 12/22/1999Hepatitis A owtzfjtZoqvcoynn40/27/2012, 08/19/2011, 02/09/2011, Additional history existsMeningococcal (ACWY) vaccine Eglurqkjk79/19/2016, 2014, 01/12/2011HPV ttbcjsyTpfvtvcgb57/28/2018, 05/01/2017, 02/24/2017HIV ipxwizTrhjnztju72/12/2020Chlamydia/GC screen Oisqdngrdaxu65/29/2021, 03/03/2020, 02/21/2019, Additional history exists Hepatitis C xknhyvWiqqzvcnl73/27/2024Depression MonitoringDiscontinued 08/07/2024, 08/07/20241029BgwosvPezrrficxvzq96/27/2025, 05/20/2024, 02/16/2024, Additional history existsMeningococcal B vaccineAged OutNo longer eligible based on patient's age to complete this topicPneumococcal 0-49 years VaccineAged Out No longer eligible based on patient's age to complete this topic Procedures Procedure NamePriorityDate/TimeAssociated DiagnosisCommentsCHG BIOPHYSICAL PROFILE NON-STRESS JHBOVUAFmppemg49/05/2025 4:53 PM ESTBIOPHYSICAL PROFILE Udaqsvt96/29/2025CHG BIOPHYSICAL PROFILE NON-STRESS TESTINGRoutine 05/07/2025 3:54 PM EDTBIOPHYSICAL PROFILE W/GLOEvwahow99/08/2025 11:39 AM EDTHM PAP QYHNBTkppoaq15/23/2024 LIPID ZPHBBCfhozgm89/28/2024 9:59 AM EDT Mixed hyperlipidemia HEPATITIS C AOBJJCKMUxhfjdn44/27/2024 8:25 AM EDT Need for hepatitis C screening test Wellness examination C.TRACHOMATIS N.GONORRHOEAE DNA, CUUZMNxoxvhy65/29/2021 1:57 PM EDT Frequent UTI HIV IUJOWTQipxxvo76/12/2020 3:27 PM EDT Encounter for screening for HIV from Last 3 Months or Most Recently Relevant to Health Maintenance Results * CHG BIOPHYSICAL PROFILE NON-STRESS TESTING (05/28/2025 4:53 PM EST) Only the most recent of2 resultswithin the time period is included. Narrative Authorizing ProviderResult TypeResult StatusHistorical Provider MDPR IMAGING Final Result * Biophysical profile (05/21/2025) Narrative Authorizing ProviderResult TypeResult StatusHistorical Provider OB GYNE ORDERABLESFinal Result * BIOPHYSICAL PROFILE W/NST (04/30/2025 11:39 [...] RangeTest MethodAnalysis TimePerformed AtPathologist SignatureHepatitis C AbNONREACTIVE VSHPGPYYJRI15/27/2024 8:25 AM EDTMERCY LABORATORIESComment: ? The hepatitis [...] / Volume Collection TimeReceived TimeBloodBLOOD SPECIMEN / Kdpkzqd3710/18/2023 8:25 AM EDT 10/18/2023 8:26 AM EDT Narrative Authorizing ProviderResult TypeResult StatusYnes Mistry MANGLE TENDER - CNPIMMUNOLOGY ORDERABLESFinal ResultPerforming OrganizationAddressCity/State/ZIP CodePhone Number [facility] [address] [place] [address], [facility] [phone] [facility] [address] [place], [place] [address] [phone] * C.trachomatis N.gonorrhoeae DNA, Urine (11/19/2020 1:57 PM EDT)ComponentValue Ref RangeTest MethodAnalysis TimePerformed AtPathologist SignatureSpecimen Description.URINE11/19/2020 1:57 PM EDTMERCY LABORATORIESC. trachomatis DNA ,KlzzqBBTWLKCLUNAAIMBL65/29/2021 1:57 PM EDTMERCY LABORATORIESComment: CHLAMYDIA TRACHOMATIS DNA [...] alternative nucleic acid target. N. gonorrhoeae DNA, EycpyCKIIGYTVTYBQWCOR18/29/2021 1:57 PM EDTMERCY LABORATORIESComment: NEISSERIA GONORRHOEAE DNA [...] / LateralityCollection Method / Volume Collection TimeReceived CedgRiunv38/29/2021 1:57 PM EDT11/19/2020 1:57 PM EDT Narrative Authorizing ProviderResult TypeResult StatusBesilvestre Ricks MANGLE TENDER - EVENT MGR MICROBIOLOGY - GENERAL ORDERABLESFinal ResultPerforming OrganizationAddress City/State/ZIP CodePhone Number [facility] [address] [place] [address], [facility] [phone] [place] [address] [place] [address], [facility] [phone] * HIV Screen (05/04/2020 3:27 PM EDT)ComponentValueRef RangeTest MethodAnalysis TimePerformed AtPathologist SignatureHIV Ag/PoCYJILSMERUSPIHGKWIMJPX82/12/2020 3:27 PM EDTMERCY LABORATORIESComment: No laboratory evidence of HIV infection. ??If acute HIV infection is suspected, consider testing for HIV-1 RNA. Specimen (Source)Anatomical Location / LateralityCollection Method / Volume Collection TimeReceived TimeBLOOD SPECIMEN / Fgeaefz3205/04/2020 3:27 PM EDT 05/04/2020 3:28 PM EDT Narrative Authorizing ProviderResult TypeResult StatusYnes Mistry MANGLE TENDER - CNPIMMUNOLOGY ORDERABLESFinal ResultPerforming OrganizationAddressCity/State/ZIP CodePhone Number [facility] [address] [place] [address], [facility] [phone] [place] [address], [facility] [phone] from Last 3 Months or Most Recently Relevant to Health Maintenance Insurance Care Teams Team MemberRelationshipSpecialtyStart DateEnd Date Ynes Mistry, MANGLE TENDER - EVENT MGR [address] [place] [address] Dr [address] [place] [id number] PCP - GeneralFamily Nurse Practitioner08/02/22
--- OUTSIDE RECORDS SUMMARY | 2025-06-04 16:04 | XMS_ITS | Clinical Summary ---
Author Organization [facility] Address [address] [place], [place] [address] Care Team Providers Care Adult Protective Caseworker Name Role Phone Unavailable Primary Care Provider Unavailabl e Allergies No known active allergies Medications MedicationSigDispense QuantityRefillsLast FilledStart DateEnd DateStatus benzonatate (TESSALON PERLE) 100 mg capsule Take 1-2 capsules every 8 hours as needed. 60 capsule 4Active Active Problems No known active problems Social History Tobacco UseTypesPacks/DayYears UsedDateSmoking Tobacco: Never Assessed CommentsUnknownSex and Gender InformationValueDate RecordedSex Assigned at Not on fileLegal LnbWxxkva98/14/2024 10:20 AM ESTGender IdentityNot on file Sexual OrientationNot on file Plan of Treatment Health MaintenanceDue DateLast DoneCommentsPeds To Adult Transition Initial Lymzbrnmvu42/17/2011Peds To Adult Transition Annual Qojokmsebp12/17/2013nxiety Lasylrcsg47/17/2017Depression Zzmeqaauw57/17/2017HIV Ghelugshq82/17/2017 Hepatitis C Oiwnkdfoc97/17/2017Cervical Cancer Tvdzgimdl75/17/2020DTaP,Tdap,Td Vaccine (7 - Td or Tdap), 11/20/2003, 03/13/2000, Additional history existsCovid-19 Vaccine ( season)/02/2021, 12/07/2020Influenza Vaccine (#1)2025Hepatitis B VaccineCompleted 06/09/1999, 1998, 1998HPV JlotxhwWcgaqvplq77/28/2018, 05/01/2017, 02/24/2017 Insurance [facility] Address: [address] [place] [address]
--- OUTSIDE RECORDS SUMMARY | 2025-06-04 16:04 | XMS_ITS | Clinical Summary ---
Author Organization [facility] Address [address] [place] [address] Care Team Providers Care Expanded Function Dental Assistant Name Role Phone Ynes Mistry MICROBIOLOGICAL ANALYST Primary Care Provider Allergies No known active [...] anemia s/p -hgb 10.8 per recent labs Eplvlfgcibik32/28/2023 Assessment & Plan (03/30/2023 1:01 PM EDT): - 30-day event monitor - we will hold off on starting medication until follow-up Abnormal glucose levelHeartburn Hpohrpzzouu68yspareunia in xwjeqk58Frequent UTInxiety Assessment & Plan (03/30/2023 1:01 PM EDT): - takes sertraline 50 mg daily Seasonal allergic wkmaotrm89/Insomnia due to other mental ejoeujbl21Other ufhwonn12 Assessment & Plan (03/30/2023 1:02 PM EDT): [...] Last Filed Vital Signs Vital SignReadingTime TakenCommentsBlood Wvxfefek799/7607/11/2023 4:27 PM EST Imvul610707/11/2023 4:27 PM ESTTemperature--Respiratory Rate--Oxygen Iwytpimjjc21% 07/11/2023 4:27 PM ESTInhaled Oxygen Concentration--Vovwkj01.7 kg (211 lb) 07/11/2023 4:27 PM PKKIqnvvw714.6 cm (5' 6 )07/11/2023 4:27 PM ESTBody Mass Index34.0607/11/2023 4:27 PM EST Plan of Treatment Health MaintenanceDue DateLast DoneCommentsDepression Pmskjptre77/17/2011dult Brfpstf05/17/COVID-19 Vaccine ( season)2025 12/29/2020, 12/07/2020Influenza Vaccine (#1)2025Pap Smear04/18/2025 04/18/2022Zoster Vaccines (1 of 2)9002/09/2011, 12/22/1999HIB Vaccines Otivtvnkf94/21/2000, 03/12/1999, 01/18/1999, Additional history existsIPV OpmzydkwVmhmrwgcc73/29/2004, 03/13/2000, 01/18/1999, Additional history exists Varicella FgmvlckvLwnlucdds68/20/2011, 12/22/1999Meningococcal VaccineCompleted 03/11/2016, 2014, 01/12/2011HPV GosieeliDywhtttpw80/28/2018, 05/01/2017, 02/24/2017Meningococcal B VaccineAged OutNo longer eligible based on patient's age to complete this topicPneumococcal Vaccine: Pediatrics (0 to 5 Years) and At-Risk Patients (6 to 64 Years)Aged OutNo longer eligible based on patient's age to complete this topicRotavirus VaccinesAged OutNo longer eligible based on patient's age to complete this topic Insurance Care Teams Team MemberRelationshipSpecialtyStart DateEnd Date Ynes Mistry, MICROBIOLOGICAL ANALYST [facility] Dr ERNA[address]Z [address] [place] [address] PCP - General03/20/23
--- OUTSIDE RECORDS SUMMARY | 2025-06-04 16:04 | XMS_ITS | Encounter Summary ---
Author Organization [facility] Address [address] [place] [address] Care Team Providers Care Cut Off Saw Operator Metal Name Role Phone Unavailable Primary Care Provider Unavailabl e Encounter Details DateTypeDepartmentCare Team (Latest Contact Info)Xhfkmfpgdxu52/06/2025Telephone [facility] [address] [facility] [facility] [address] [place], [phone] Mukul Foy DO [address] [facility] [place] [address] Social History Tobacco UseTypesPacks/DayYears UsedDateSmoking Tobacco: NeverSmokeless Tobacco: NeverAlcohol UseStandard Drinks/WeekCommentsNever0 (1 standard drink = 0.6 oz pure alcohol)Estimated Date of OkqvajgtRduuzpeaSbf35/01/2025Based on last menstrual period of 09/16/2024Sex and Gender InformationValueDate Recorded Sex Assigned at BirthNot on fileLegal UfoUqmqgi30/15/2023 11:47 PM EDTGender IdentityNot on fileSexual OrientationNot [...] Plan of Treatment DateTypeDepartmentCare Team (Latest Contact Info)Siasodqzwqu12/05/2026 4:00 PM ESTOffice Visit [facility] [address] [facility] [place] [address] Mukul Foy, [address] [facility] [address] [place], [place] [id number] documented as of this encounter Goals GoalPatient Goal TypeAssociated ProblemsRecent ProgressPatient-Stated?Author Reminders Care PlanOB RemindersNoOpen Scheduling, Backgrounddocumented as of this encounter Visit Diagnoses Not on filedocumented in this encounter Additional Health Concerns Active ProblemsNoted DateDiagnosed DateOB Wicvbhzqp00/09/2025 documented as of this encounter
--- OUTSIDE RECORDS SUMMARY | 2025-06-04 16:04 | XMS_ITS | Encounter Summary ---
Author Organization [facility] Address [address], [address] [place] [address] Care Team Providers Care Design Teacher Name Role Phone Ynes Mistry IT TECHNICIAN - FISH TRAPPER Primary Care Provide r Encounter Details DateTypeDepartmentCare Team (Latest Contact Info)Jqcetdgttzt41/30/2025Orders Only [facility] Primary Care [address] [place] [address] [address] [place] [address] Ynes Mistry, IT TECHNICIAN - FISH TRAPPER [address] [place] [id number] Social History Tobacco UseTypesPacks/DayYears UsedDateSmoking Tobacco: NeverSmokeless Tobacco: NeverAlcohol UseStandard Drinks/WeekCommentsNot Currently0 (1 standard drink = 0.6 oz pure alcohol)socialMAGRUDER [facility] UtilitiesAnswerDate RecordedIn the past 12 months has the electric, gas, oil, or water company threatened to shut off services in your home?No10/07/2024Overall Financial Resource Strain (CARDIA)AnswerDate RecordedHow hard is it for you to pay for the very basics like food, housing, medical care, and heating?Not hard at all07/13/2023HQ-2AnswerDate RecordedPHQ-9 Total Dsyjt953Hunger Vital SignAnswerDate RecordedWithin the past 12 months, [...] steady place to sleep or slept in lookout mountainelter (including now)?No07/13/2023Housing Stability Vital SignAnswerDate RecordedIn the last 12 months, was there a time when you were not able to pay the mortgage or rent on time?No10/07/2024In the past 12 months, how many times have you moved where you were living? At any time in the past 12 months, were you homeless or living in a residential (including now)?No10/07/2024Food InsecurityAnswerDate RecordedWithin the past 12 months, you worried that your food would run out before you got the money to buy more.Within the past 12 months, the food you bought just didn't last and you didn't have money to get more.CommentsNoSex and Gender InformationValueDate RecordedSex Assigned at HhsnlLmtroe18/28/2024 8:24 PM EDTLegal PgzChjxfg22/10/2013 3:31 PM ESTGender CymfexvjTlqian50/28/2024 8:24 PM EDTSexual OrientationNot on filedocumented as of this encounter Plan of Treatment Not on file documented as of this encounter Procedures Procedure NamePriorityDate/TimeAssociated DiagnosisCommentsBIOPHYSICAL PROFILE Ulocyaq4205/21/2025documented in this encounter Results * Biophysical profile (05/21/2025) Narrative Authorizing ProviderResult TypeResult StatusHistorical Provider MDOB GYNE ORDERABLESFinal Result documented in this encounter Visit Diagnoses Not on filedocumented in this encounter Care Teams Team MemberRelationshipSpecialtyStart DateEnd Date Ynes Mistry, IT TECHNICIAN - FISH TRAPPER [address] [place] [address] [place] [address] PCP - GeneralFamily Nurse Practitioner08/02/22documented as of this encounter
--- OUTSIDE RECORDS SUMMARY | 2025-06-04 16:04 | XMS_ITS | Encounter Summary ---
Author Organization [facility] Address [address] [place] [address] Care Team Providers Care Science And Operations Officer Name Role Phone Unavailable Primary Care Provider Unavailabl e Encounter Details DateTypeDepartmentCare Team (Latest Contact Info)Mupybtnruby25/07/2025Telephone [facility] [address] [place] [phone] Mukul Foy DO [address] [address] Social History Tobacco UseTypesPacks/DayYears UsedDateSmoking Tobacco: NeverSmokeless Tobacco: NeverAlcohol UseStandard Drinks/WeekCommentsNever0 (1 standard drink = 0.6 oz pure alcohol)Estimated Date of HvjrxzjbIpxwcewqFft63/01/2025Based on last menstrual period of 09/16/2024Sex and Gender InformationValueDate Recorded Sex Assigned at BirthNot on fileLegal WzrTvwych80/15/2023 11:47 PM EDTGender IdentityNot on fileSexual OrientationNot [...] Plan of Treatment DateTypeDepartmentCare Team (Latest Contact Info)Ceyifhsgeur68/05/2026 4:00 PM ESTOffice Visit [facility] [address] [place] [phone] Mukul Foy DO [address] [place] [address] documented as of this encounter Goals GoalPatient Goal TypeAssociated ProblemsRecent ProgressPatient-Stated?Author Reminders Care PlanOB RemindersNoOpen Scheduling, Backgrounddocumented as of this encounter Visit Diagnoses Not on filedocumented in this encounter Additional Health Concerns Active ProblemsNoted DateDiagnosed DateOB Uwothykuk36/09/2025 documented as of this encounter
--- OUTSIDE RECORDS SUMMARY | 2025-06-04 16:04 | XMS_ITS | Clinical Summary ---
Author Organization [facility] Healthcare Address [address] [place] [address] Care Team Providers Care Bin Worker Name Role Phone Unavailable Primary Care Provider Unavailabl e Allergies No known active allergies Medications MedicationSigDispense QuantityRefillsLast FilledStart DateEnd DateStatus sertraline (Zoloft) 50 MG tablet Indications:Anxiety, generalizedTAKE 1 TABLET BY MOUTH EVERY DAY IN THE MORNING 30 tablet 304/5Active glucose blood test strip Indications:Gestational diabetes mellitus (GDM), antepartum, gestational diabetes method of control unspecified([facility])Use as instructed 100 each 1206//311430/6Active metFORMIN XR (Glucophage-XR) 500 MG 24 hr tablet Indications:Second trimester ([facility]),20 weeks gestation of ([facility])Take 2 tablets (1,000 mg) by mouth in the evening. Take with meals 60 tablet 507//250411/6Active pantoprazole (Protonix) 40 MG EC tablet Indications:23 weeks gestation of ([facility]),Elevated blood sugar level ,Gastroesophageal reflux disease without esophagitisTake 1 tablet (40 mg) by mouth in the morning. Take before meals. Do not crush, chew, or split. 30 tablet 1108//789366/6Active metoclopramide (Reglan) 10 MG tablet Indications:Gastroesophageal reflux disease without esophagitisTake 1 tablet (10 mg) by mouth in the morning and 1 tablet (10 mg) at noon and 1 tablet (10 mg) in the evening. Take before meals. Take 1 tablet by mouth 30 minutes prior to meals 3 times daily as needed for nausea. 90 tablet 5Active insulin pen needle 29G x 8mm mis Indications:Insulin controlled gestational diabetes mellitus (GDM) during , antepartum ([facility])Inject 1 each under the skin Daily 100 each 515Active insulin glargine (Lantus SoloStar) 100 UNIT/ML pen Indications:HyperglycemiaInject 17 Units under the skin at bedtime FILL ACCORDING TO INSURANCE COVERAGE 3 mL 5Active insulin glargine (Lantus SoloStar) 100 UNIT/ML pen Indications:HyperglycemiaInject 10 Units under the skin at bedtime FILL ACCORDING TO INSURANCE COVERAGE 3 mL Discontinued(Reorder) insulin glargine (Lantus SoloStar) 100 UNIT/ML pen Indications:HyperglycemiaInject 15 Units under the skin at bedtime FILL ACCORDING TO INSURANCE COVERAGE 3 mL Discontinued(Dose adjustment) Active Problems ProblemNoted DateDiagnosed Date23 weeks gestation of ([facility]) 02/26/2025Elevated blood sugar level02/26/2025bnormal glucose level01/13/2023 Ybkesqqnr53/23/9297Ublygxkgebc13/23/2023Dyspareunia in zauajq6311/30/2020Frequent UTI11/30/20206802Flajyec97/07/2020Insomnia due to other mental gplaloex36/10/2020 Other apaehac5705/02/2020Estimated Date of LckaqhznWghhsawbLxe72/01/2025 Based on last menstrual period of 09/16/2024 Resolved Problems ProblemNoted DateDiagnosed DateResolved DateMissed Encounters DateTypeDepartmentCare XxisZwgqgwvoizm86/10/2025 1:10 PM ESTRoutine [facility] [address] [place] [address] [place] [address] Britt Foy DO 37 weeks gestation of ([facility]); Third trimester ([facility]); Insulin controlled gestational diabetes mellitus (GDM) during , antepartum ([facility]); Gestational diabetes mellitus (GDM), antepartum, gestational diabetes method of control unspecified([facility])06/02/2025Telephone [facility] [place] [facility] [address] [place] [address] Jo Ann Isabel LPN 06/02/2025bstract [facility] [address] [place] [address] Britt Foy, DO 05/30/2025Telephone [facility] [address] [place] [address] Britt Foy, DO 05/29/2025Telephone [facility] [address] [place] [address] Britt Foy, DO 5Clinisync Result Encounter NOMS External Department Unsolicited Britt Foy, DO 05/28/2025 2:30 PM ESTRoutine [facility] [address] [place] [address] Regina Cummins PA Third trimester ([facility]); 36 weeks gestation of ([facility])05/28/2025 2:00 PM ESTAncillary Procedure [facility] [address] [place] [address] Insulin controlled gestational diabetes mellitus (GDM) during , antepartum ([facility])5Clinisync Result Encounter NOMS External Department Unsolicited Regina Cummins PA 5Clinisync Result Encounter NOMS External Department Unsolicited Britt Foy, DO 05/14/2025 2:50 PM EDTRoutine [facility] [address] [place] [address] Britt Foy, DO Third trimester ([facility]); 34 weeks gestation of ([facility]); Insulin controlled gestational diabetes mellitus (GDM) during , antepartum ([facility]); Gestational diabetes mellitus (GDM), antepartum, gestational diabetes method of control unspecified([facility])05/14/2025linisync Result Encounter NOMS External Department Unsolicited Law, Britt, DO 05/14/2025amboo flowsheet [facility] [address] [place] [address] Law, Britt, DO 05/12/2025linisync Result Encounter NOMS External Department Unsolicited Law, Britt, DO 05/08/2025linisync Result Encounter NOMS External Department Unsolicited Law, Britt, DO 05/02/2025bstract [facility] [address] [place] [phone] Britt Foy, DO 04/30/2025 3:00 PM EDTRoutine [facility] [place] [facility] [address] [place] [address] Tiffany Li NP Third trimester ([facility]); 32 weeks gestation of ([facility])04/30/2025linisync Result Encounter NOMS External Department Unsolicited Law, Britt, DO 04/30/2025amboo flowsheet [facility] [place] [facility] [address] [place] [phone] Tiffany Li, ASHWIN 04/27/20256424Mevysp16/23/2025bstract [facility] [place] [facility] [address] [place] [address] Britt Foy, DO 04/14/2025 3:20 PM EDTRoutine [facility] [address] [place] [address] Regina Cummins, PA Third trimester ([facility]); 30 weeks gestation of ([facility])04/14/2025amboo flowsheet [facility] [place] [facility] [address] [place] [phone] Regina Cummins PA 04/14/20259431Uuybgr61/15/2025Telephone [facility] [place] [facility] [address] [place] [phone] Elizabeth Ware MA 5Clinisync Result Encounter NOMS External Department Unsolicited Regina Cummins PA 04/05/2025linisync Result Encounter NOMS External Department Unsolicited Regina Cummins PA 04/03/2025 3:30 PM EDTRoutine [facility] [place] [facility] [address] [place] [address] Regina Cummins PA 28 weeks gestation of ([facility]); Third trimester ([facility]); Dizziness; Gestational diabetes mellitus (GDM), antepartum, gestational diabetes method of control unspecified([facility]); History of miscarriage; Anemia, unspecified type; UTI ompjtelf62/11/2025amboo flowsheet [facility] [address] [place] [phone] Regina Cummins PA 04/02/2025Telephone [facility] [address] [place] [phone] Suyapa Hazel LPN 04/01/20259729Ewhvzu73/21/2025bstract [facility] [address] [place] [phone] Britt Foy DO 03/12/2025 3:50 PM EDTRoutine [facility] [place] [facility] [address] [place] [phone] Britt Foy DO 25 weeks gestation of ([facility]); Second trimester ([facility]); Gastroesophageal reflux disease without ovgewxinbhs05/20/2025amboo flowsheet [facility] [place] [facility] [address] [place] [address] Britt Foy DO from Last 3 Months Family History RelationNameStatusCommentsDaughterAliveFatherAliveMotherAliveSisterAlive Social History Tobacco UseTypesPacks/DayYears UsedDateSmoking Tobacco: NeverSmokeless Tobacco: Never Tobacco Cessation:Counseling Given: Not Answered Alcohol UseStandard Drinks/WeekCommentsNever0 (1 standard drink = 0.6 oz pure alcohol)Estimated Date of PssmumagOnnyzsufDvh63/01/2025ased on last menstrual period of 09/16/2024Sex and Gender InformationValueDate RecordedSex Assigned at BirthNot on fileLegal CbpQpypyd65/15/2023 11:47 PM EDTGender IdentityNot on fileSexual OrientationNot on file Last Filed Vital Signs Vital SignReadingTime TakenCommentsBlood Zfbfqkod403/80108/02/2024 1:22 PM EST Pulse--Temperature--Respiratory Rate--Oxygen Saturation--Inhaled Oxygen Concentration--Czgbxg339 kg (237 lb 12.8 oz)06/02/2025 1:22 PM LRGLliwfj452.6 cm (5' 6 )01/30/2023 12:12 PM EDTBody Mass Index38.38001/30/2023 12:12 PM EDT Plan of Treatment DateTypeDepartmentCare Team (Latest Contact Info)Ipvvysobvpr74/05/2026 4:00 PM ESTOffice Visit NOMRenzo SANTO [address] [place] [address] Britt Foy DO [address] [place] [address] Health MaintenanceDue DateLast DoneCommentsCOVID-19 Vaccine (2024- season) /02/2021, 12/07/2020Influenza Vaccine (#1)2025Pneumococcal Vaccine: Pediatrics (0 to 5 Years) and At-Risk Patients (6 to 64 Years)Aged Out No longer eligible based on patient's age to complete this topic Goals GoalPatient Goal TypeAssociated ProblemsRecent ProgressPatient-Stated?Author Reminders Care PlanOB RemindersNoOpen Scheduling, Background Procedures Procedure NamePriorityDate/TimeAssociated DiagnosisCommentsPOCT URINALYSIS BPVXACNOSkyaqdj87/10/2025 1:25 PM EST 37 weeks gestation of ([facility]) Third trimester ([facility]) US OB BPP W NON-RSOMKF8405/29/2025 10:10 AM EST POCT URINALYSIS YZZDXUJQCyuttmo90/05/2025 2:52 PM EST 36 weeks gestation of ([facility]) STREP GP B CULTURE+BSWYBlywntr33/05/2025 2:40 PM EST US OB FOLLOW UP TRANSABDOMINAL AJSYBWYJEeqjrzp46/05/2025 2:26 PM EST Insulin controlled gestational diabetes mellitus (GDM) during , antepartum ([facility]) US OB BPP W NON-PMFZJM3005/21/2025 7:56 PM EDT US OB BPP W NON-ZZDXMT1105/14/2025 10:20 PM EDT POCT URINALYSIS ORIJXGFUVhzvvcm55/22/2025 3:13 PM EDT 34 weeks gestation of ([facility]) URINE CULTURE, KIIKXOLFtcxjkc24/20/2025 9:55 AM EDT [facility] 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Wplneuh9105/12/2025 9:55 AM EDT US OB BPP W NON-HLZOWV4905/08/2025 12:28 AM EDT US OB BPP W NON-JVQOMN1504/30/2025 10:59 PM EDT POCT URINALYSIS EHMNCTFFFyeuyfg34/08/2025 3:19 PM EDT 32 weeks gestation of ([facility]) POCT URINALYSIS IERXXXDGIdpqjic60/22/2025 3:54 PM EDT Third trimester ([facility]) US OB KVNIVG9004/05/2025 12:08 PM EDT ALL CBC WITH AUTO BISLSchlghx18/13/2025 10:33 AM EDT URINARY TRACT INFECTION (HTRX)Hdbtrrv7204/03/2025 3:53 PM EDT POCT URINALYSIS GAPKYGHRBbvsdrg87/11/2025 3:51 PM EDT 28 weeks gestation of ([facility]) Third trimester ([facility]) POCT URINALYSIS ANAKSYROLyakrvj04/20/2025 4:14 PM EDT 25 weeks gestation of ([facility]) Second trimester ([facility]) from Last 3 Months Results * POCT urinalysis dipstick manually resulted (06/02/2025 1:25 PM EST) Only the most recent of7 resultswithin the time period is included. ComponentValueRef RangeTest MethodAnalysis TimePerformed AtPathologist Signature Color, UAYellowClarity, UACloudyGlucose, UANegativeNegative - 1999(110) ++++ mg/dLBilirubin, UANegativeNegative - 4(70) +++ mg/dLKetones, UANegativeNegative - 160(16) ++++ mg/dLSpec Grav, UA1.0151 - 1.03Blood, UANegativeNegative - 50 Yunior/mcLpH, UA6.55 - 9Protein, UANegativeNegative - 2000(20) ++++ mg/dL Urobilinogen, UA1.00.2 - 12 mg/dLLeukocytes, UANegativeNegative - 500+++ Trip/mcL Nitrite, UANegativeNegative - PositiveSpecimen (Source)Anatomical Location / LateralityCollection Method / VolumeCollection TimeReceived DyoeXecot12/10/2025 1:25 PM EST Narrative Authorizing ProviderResult TypeResult StatusCorey Law DOPOINT OF CARE TEST ENTER/EDIT ORDERABLESFinal Result * US OB BPP W NON-STRESS (05/29/2025 10:10 AM EST) Only the most recent of5 resultswithin the time period is included. Anatomical RegionLateralityModalityOtherSpecimen (Source)Anatomical Location / LateralityCollection Method / VolumeCollection TimeReceived Time05/29/2025 10:10 AM EST Narrative 05/29/2025 10:13 AM EST [facility] ?[address] ? [place] [address] ? Ultrasound Report ? Signed ? Patient: VINNY HERRERA ?MR#: [id number] ?? : 2000 ?Acct:[id number] ?? Age/Sex: 24 / F ?ADM Date: 05/28/25 ?? Loc: US ? Attending Dr: Britt Foy D.O. ? Ordering Physician: Britt Foy D.O. ?? Date of Service: 05/28/25 ?? Procedure(s): US OB BPP w non-stress ?? Accession Number(s): [id number] ? cc: Britt Foy D.O.; Ynes Mistry CUT PRESS OPERATOR ? [facility] ? [address] ? [place] [address] ? Patient Name: ?? VINNY Ericka JAVIER ? MRN: [facility]:[id number] ? date: 2000 ?Sex: F ?? Assigned Patient Location: US ?? Current Patient Location: US ?? Accession/Order Number: [id number] ?? Exam Date: 05/28/2025 ??16:05 ?Report Date: [...] Dictation Location: RADIO-PC-02 ? Electronically authenticated by: [id number] ??Y ?? Date: 05/29/2025 ??10:10 ? Dictated By: ?Criselda Flores M.D. ? Signed By: ?11/06/25 1013 ? DD/ 1010 ? TD/TT: ? Correctional Counselor/Case Manager: Procedure Note Radiology, Radiologist, - 05/29/2025 [place] [address] Ultrasound Report Signed Patient: VINNY HERRERA CMR#: [id number] : 2000Acct:[id number] Age/Sex: 24 / FADM Date: 05/28/25 Loc: Attending Dr: Britt Foy D.O. Ordering Physician: Britt Foy D.O. Date of Service: 05/28/25 Procedure(s): US OB BPP w non-stress Accession Number(s): [id number] cc: Britt Foy D.O.; Ynes Mistry CUT PRESS OPERATOR The [place] [id number] Patient Name: VINNY HERRERA MRN: [id number] date: 2000 Sex: F Assigned Patient Location: US Current Patient Location: US Accession/Order Number: [id number] Exam Date: 05/28/2025 16:05 Report Date: 05/29/2025 [...] Flores M.D. 05/29/2025 10:10 AM Dictation Location: [place] [address] Electronically authenticated by: [id number] Y Date: 0:10 Dictated By: Criselda Flores M.D. Signed By:05/29/25 1013 DD/ 1010 TD/TT: Correctional Counselor/Case Manager: Authorizing ProviderResult TypeResult StatusCorey Law DOCLINISYNC IMAGINGFinal Result * STREP GP B CULTURE+RFLX (05/28/2025 2:40 [...] is noted.TBHSTREP GP B CULTURE+RFLX Performed at: [facility] LabCovenant Medical CenterTBHSTREP GP B CULTURE+[id number] [place], [place] [id number] GP B CULTURE+RFLXLab Director: Elian Mccray PhD, Phone: [phone] (Source)Anatomical Location / Laterality Collection Method / VolumeCollection TimeReceived Time05/28/2025 2:40 PM EST 05/28/2025 9:05 PM EST Narrative CLINISYNC - 06/02/2025 5:09 PM EST Authorizing ProviderResult TypeResult StatusAmy [facility] BLOOD ORDERABLES Final ResultPerforming OrganizationAddressCity/State/ZIP CodePhone Number [facility]ITALISYNC [facility] * OB follow up transabdominal approach (05/28/2025 [...] Reyes MD Authorizing ProviderResult TypeResult StatusCorey Law LAMA OB US PROCEDURES Final Result * URINE CULTURE, ROUTINE (05/12/2025 9:55 AM EDT)ComponentValueRef RangeTest MethodAnalysis TimePerformed AtPathologist SignatureURINE CULTURE, ROUTINE ??Urine Culture, Routine TBHURINE CULTURE, ROUTINEMixed urogenital floraTBHURINE CULTURE, IIRCDIN18,000- 25,000 colony forming units per mLTBHURINE CULTURE, ROUTINEPerformed at: [facility] LabCovenant Medical CenterTBHURINE CULTURE, [id number] [place], [place] [id number] URINE CULTURE, ROUTINELab Director: Elian Mccray PhD, Phone: [phone] Specimen (Source)Anatomical Location / LateralityCollection Method / Volume Collection TimeReceived Time05/12/2025 9:55 AM EDT1 10:35 AM EDT Narrative CLINISYNC - 05/13/2025 11:10 PM EDT Authorizing ProviderResult TypeResult StatusCorey Law LOGAN BLOOD ORDERABLES Final ResultPerforming OrganizationAddressCity/State/ZIP CodePhone Number CLINISYNC [facility] * (ABNORMAL) [facility] 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 (05/12/2025 9:55 AM EDT) ComponentValueRef [...] DOCLINISYNCFinal Result Performing OrganizationAddressCity/State/ZIP CodePhone Number CLINISYNC [facility] * US OB GROWTH (04/05/2025 12:08 PM EDT)Anatomical RegionLateralityModalityOther Specimen (Source)Anatomical Location / LateralityCollection Method / Volume Collection TimeReceived Time04/05/2025 12:08 PM EDT Narrative 04/05/2025 12:11 PM EDT [facility] ?[address] ? [place], [place] [address] ? Ultrasound Report ? Signed ? Patient: VINNY HERRERA ?MR#: [id number] ?? : 2000 ?Acct:[id number] ?? Age/Sex: 24 / F ?ADM Date: 04/05/25 ?? Loc: US ? Attending Dr: Regina Cummins ? Ordering Physician: Regina Cummins ?? Date of Service: 04/05/25 ?? Procedure(s): US OB growth ?? Accession Number(s): [id number] ? cc: Regina Cummins; Physician,Non-Staff M.D. ? [facility] ? [facility]. [facility] ? [place] [address] ? Patient Name: ?? VINNY HERRERA ? MRN: [id number] ? date: 2000 ?Sex: F ?? Assigned Patient Location: US ?? Current Patient Location: LAB ?? Accession/Order Number: [id number] ?? Exam Date: 04/05/2025 ??10:00 ?Report Date: [...] Dictation Location: RADIO-PC-20 ? Electronically authenticated by: [id number] ??Y ?? Date: 04/05/2025 ??12:08 ? Dictated By: ?Daryn Peraza D.O. ? Signed By: ?04/05/25 1211 ? DD/ 1208 ? TD/TT: ? Correctional Counselor/Case Manager: Procedure Note Radiology, Radiologist, MD - 04/05/[address] [address] Ultrasound Report Signed Patient: VINNY HERRERA CMR#: [id number] : 2000Acct:[id number] Age/Sex: 24 / FADM Date: 04/05/25 Loc: US Attending Dr: Regina Cummins Ordering Physician: Regina Cummisn Date of Service: 04/05/25 Procedure(s): US OB growth Accession Number(s): [id number] cc: Regina Cummins; Physician,Non-Staff M.D. The [address] [address] Patient Name: VINNY HERRERA MRN: [id number] date: 2000 Sex: F Assigned Patient Location: US Current Patient Location: LAB Accession/Order Number: [id number] Exam Date: 04/05/2025 10:00 Report Date: 04/05/2025 [...] Peraza M.D. 04/05/2025 12:08 PM Dictation Location: [place] [address] Electronically authenticated by: [id number] Y Date: 2:08 Dictated By: Daryn Peraza D.O. Signed By:04/05/25 1211 DD/ 1208 TD/TT: Correctional Counselor/Case Manager: Authorizing ProviderResult TypeResult StatusAmy [facility] IMAGINGFinal Result * (ABNORMAL) ALL CBC WITH AUTO DIFF (04/05/2025 10:33 AM EDT)ComponentValueRef RangeTest MethodAnalysis TimePerformed AtPathologist SignatureTBH WBC11.04.0 - 11.0 10 3/uLTBHTBH RBC3.47(L)4.20 - 5.40 10 6/uLTBHTBH HGB10.3(L)12.0 - 16.0 g/dLTBHTBH HCT30.7(L)36.0 - 48.0 %TBHTBH MCV88.581.0 - 99.0 fLTBHTBH MCH29.7 26.7 - 34.0 pgTBHTBH MCHC33.629.9 - 35.2 g/dLTBHTBH RDW12.811.0 - 15.0 %TBHTBH GPH273146 - 450 10 3/uLTBHTBH MPV8.7(L)9.5 - 13.5 [...] 10:47 AM EDT Authorizing ProviderResult TypeResult StatusAmy [place] PACLINISYNCFinal Result Performing OrganizationAddressCity/State/ZIP CodePhone Number [facility]ZARO [facility] * URINARY TRACT INFECTION (HTRX) (04/03/2025 3:53 PM EDT)ComponentValueRef Range Test MethodAnalysis TimePerformed AtPathologist SignatureACINETOBACTER TQUMRKTI067.961 - 24.689 ppm04/04/2025 7:51 AM EDTHealthTrackRx at [facility] ACINETOBACTER BAUMANIINot Ycjfbfey87.961 - 24.689 ppm04/04/2025 7:51 AM EDT [facility] LabPortCITROBACTER WPACWNPQ184.000 - 32.015 ppm04/04/2025 7:51 AM EDTHealthTrackRx at LabPortCITROBACTER FREUNDIINot Deltnpih39.000 - 32.015 ppm04/04/2025 7:51 AM EDTHealthTrackRx at LabPortENTEROBACTER AEROGENES, NVGSGVY385.000 - 32.290 ppm04/04/2025 7:51 AM EDTHealthTrackRx at LabPortENTEROBACTER AEROGENES, CLOACAENot Eoatkzvs05.000 - 32.290 ppm 04/04/2025 7:51 AM EDTHealthTrackRx at LabPortENTEROCOCCUS FAECALIS, FAECIUM0 26.000 - 33.043 ppm04/04/2025 7:51 AM EDTHealthTrackRx at LabPortENTEROCOCCUS FAECALIS, FAECIUMNot Vdlbtivt16.000 - 33.043 ppm04/04/2025 7:51 AM EDT [facility] at LabPortESCHERICHIA DIPW825.000 - 28.500 ppm04/04/2025 7:51 AM EDTHealthTrackRx at LabPortESCHERICHIA COLINot Nesquxzs55.000 - 28.500 ppm 04/04/2025 7:51 AM EDTHealthTrackRx at LabPortKLEBSIELLA PNEUMONIAE, OXYTOCA0 23.000 - 31.865 ppm04/04/2025 7:51 AM EDTHealthTrackRx at LabPortKLEBSIELLA PNEUMONIAE, OXYTOCANot Zrshbjko46.000 - 31.865 ppm04/04/2025 7:51 AM EDT [facility] LabPortMORGANELLA XDADSQEW386.961 - 24.689 ppm04/04/2025 7:51 AM EDTHealthTrackRx at LabPortMORGANELLA MORGANIINot Kuwpucrj52.961 - 24.689 ppm04/04/2025 7:51 AM EDTHealthTrackRx at LabPortPROTEUS MIRABILIS, VULGARIS0 23.000 - 28.500 ppm04/04/2025 7:51 AM EDTHealthTrackRx at LabPortPROTEUS MIRABILIS, VULGARISNot Czwyhdto78.000 - 28.500 ppm04/04/2025 7:51 AM EDT [facility] at LabPortPSEUDOMONAS YFFHXDDVTN400.000 - 31.801 ppm04/04/2025 7:51 AM EDTHealthTrackRx at LabPortPSEUDOMONAS AERUGINOSANot Xhdtkooy41.000 - 31.801 ppm04/04/2025 7:51 AM EDTHealthTrackRx at LabPortSTAPHYLOCOCCUS AUREUS0 26.000 - 31.595 ppm04/04/2025 7:51 AM EDTHealthTrackRx at [facility] STAPHYLOCOCCUS AUREUSNot Bhqegzcq76.000 - 31.595 ppm04/04/2025 7:51 AM EDT [facility] LabPortSTREPTOCOCCUS AGALACTIAE (GROUP B STREP)026.000 - 32.435 ppm04/04/2025 7:51 AM EDTHealthTrackRx at LabPortSTREPTOCOCCUS AGALACTIAE (GROUP B STREP)Not Gowjraok09.000 - 32.435 ppm04/04/2025 7:51 AM EDTHealthTrackRx at LabPortCANDIDA ALBICANS, PARAPSILOSIS, AWLWIWFQFF339.000 - 30.347 ppm09 7:51 AM EDTHealthTrackRx at LabPortCANDIDA ALBICANS, PARAPSILOSIS, TROPICALISNot Jeafmypj52.000 - 30.347 ppm04/04/2025 7:51 AM EDT [facility] LabPortCANDIDA ZUZWNGIM821.000 - 31.618 ppm04/04/2025 7:51 AM EDTHealthTrackRx at LabPortCANDIDA GLABRATANot Quotwvku00.000 - 31.618 ppm 04/04/2025 7:51 AM EDTHealthTrackRx at LabPortCANDIDA ZQFBYT098.000 - 30.873 ppm04/04/2025 7:51 AM EDTHealthTrackRx at LabPortCANDIDA KRUSEINot Detected 23.000 - 30.873 ppm04/04/2025 7:51 AM EDTHealthTrackRx at LabPortSERRATIA JKZDZFRVVC420.000 - 31.581 ppm04/04/2025 7:51 AM EDTHealth[facility] at [facility] SERRATIA MARCESCENSNot Lprvcewr73.000 - 31.581 ppm04/04/2025 7:51 AM EDT [facility] LabPortSTREPTOCOCCUS PYOGENES (GROUP A STREP)019.961 - 24.689 ppm04/04/2025 7:51 AM EDTHealthTrackRx at LabPortSTREPTOCOCCUS PYOGENES (GROUP A STREP)Not Cuwzlcqb45.961 - 24.689 ppm04/04/2025 7:51 AM EDT [facility] LabPortSTAPHYLOCOCCUS EPIDERMIDIS, HAEMOLYTICUS, LUGDUNENSIS, SAPROPHYTICUS (OGTXJ228.961 - 24.689 ppm04/04/2025 7:51 AM EDTHealthTrackRx at LabPortSTAPHYLOCOCCUS EPIDERMIDIS, HAEMOLYTICUS, LUGDUNENSIS, SAPROPHYTICUS (URINANot Dpmlfftr08.961 - 24.689 ppm04/04/2025 7:51 AM EDTHealthTrackRx at LabPortSTAPHYLOCOCCUS EPIDERMIDIS, HAEMOLYTICUS, LUGDUNENSIS, SAPROPHYTICUS (MQBXV247.961 - 24.689 ppm04/04/2025 7:51 AM [facility] STAPHYLOCOCCUS EPIDERMIDIS, HAEMOLYTICUS, LUGDUNENSIS, SAPROPHYTICUS (URINANot Sfwaskyb79.961 - 24.689 ppm04/04/2025 7:51 AM EDTHealth[facility] Specimen (Source)Anatomical Location / LateralityCollection Method / Volume Collection TimeReceived RuteMkolk79/11/2025 3:53 PM EDT04/04/2025 1:35 AM EDT Narrative Authorizing ProviderResult TypeResult StatusAmy [place] PALAB BLOOD ORDERABLES Final ResultPerforming OrganizationAddressCity/State/ZIP CodePhone Number [facility] [address] [address] from Last 3 Months Additional Health Concerns Active ProblemsNoted DateDiagnosed DateOB Brevcvuam12/09/2025 Insurance
--- OUTSIDE RECORDS SUMMARY | 2025-06-04 16:04 | XMS_ITS | Encounter Summary ---
Author Organization [facility] Address [address] [place] [address] Care Team Providers Care Prospecting Driller Helper Name Role Phone Unavailable Primary Care Provider Unavailabl e Encounter Details DateTypeDepartmentCare Team (Latest Contact Info)Zhpqzdoqops37/10/2025bstract DIANE SANTO [address] [place] [address] Mukul Foy DO [address] [place] [address] Dr Melissa [place], [facility] Social History Tobacco UseTypesPacks/DayYears UsedDateSmoking Tobacco: NeverSmokeless Tobacco: NeverAlcohol UseStandard Drinks/WeekCommentsNever0 (1 standard drink = 0.6 oz pure alcohol)Estimated Date of BamqezqdLzxixttmTcv75/01/2025Based on last menstrual period of 09/16/2024Sex and Gender InformationValueDate Recorded Sex Assigned at BirthNot on fileLegal YmyEuvwlx33/15/2023 11:47 PM EDTGender IdentityNot on fileSexual OrientationNot on filedocumented as of this encounter Plan of Treatment DateTypeDepartmentCare Team (Latest Contact Info)Okgitnompvo77/05/2026 4:00 PM ESTOffice Visit DIANE SANTO [address] [place] [address] Mukul Foy, DO [address] [place] [address] documented as of this encounter Goals GoalPatient Goal TypeAssociated ProblemsRecent ProgressPatient-Stated?Author Reminders Care PlanOB RemindersNoOpen Scheduling, Backgrounddocumented as of this encounter Visit Diagnoses Not on filedocumented in this encounter Additional Health Concerns Active ProblemsNoted DateDiagnosed DateOB Frgosorbz15/09/2025 documented as of this encounter
--- OUTSIDE RECORDS SUMMARY | 2025-06-04 16:04 | XMS_ITS | Encounter Summary ---
Author Organization [facility] Address [address], [address] [place] [address] Care Team Providers Care Vocational Training Instructor Name Role Phone Ynes Mistry EVENTS ADMINISTRATIVE ASSISTANT - STREET LIGHT SERVICER SUPERVISOR Primary Care Provide r Encounter Details DateTypeDepartmentCare Team (Latest Contact Info)Sopixvawldw51/10/2025Orders Only [facility] [address] [place] [address] [address] [place] [phone] Provider, MD Yuval Social History Tobacco UseTypesPacks/DayYears UsedDateSmoking Tobacco: NeverSmokeless Tobacco: NeverAlcohol UseStandard Drinks/WeekCommentsNot Currently0 (1 standard drink = 0.6 oz pure alcohol)[facility] UtilitiesAnswerDate RecordedIn the past 12 months has the electric, gas, oil, or water company threatened to shut off services in your home?No10/07/2024Overall Financial Resource Strain (CARDIA)AnswerDate RecordedHow hard is it for you to pay for the very basics like food, housing, medical care, and heating?Not hard at all07/13/2023HQ-2AnswerDate RecordedPHQ-9 Total Sevtu657Hunger Vital SignAnswerDate RecordedWithin the past 12 months, [...] more.CommentsNoSex and Gender InformationValueDate RecordedSex Assigned at NjepiKpcprm36/28/2024 8:24 PM EDTLegal YxjWbtxpm72/10/2013 3:31 PM ESTGender LrbndtmlMnfcsc83/28/2024 8:24 PM EDTSexual OrientationNot on filedocumented as of this encounter Plan of Treatment Not on file documented as of this encounter Procedures Procedure NamePriorityDate/TimeAssociated DiagnosisCommentsCHG BIOPHYSICAL PROFILE NON-STRESS KXUCMDZVdbkzqc19/05/2025 4:53 PM ESTdocumented in this encounter Results * CHG BIOPHYSICAL PROFILE NON-STRESS TESTING (05/28/2025 4:53 PM EST) Narrative Authorizing ProviderResult TypeResult StatusHistorical Provider MDPR IMAGING Final Result documented in this encounter Visit Diagnoses Not on filedocumented in this encounter Care Teams Team MemberRelationshipSpecialtyStart DateEnd Date Ynes Mistry, EVENTS ADMINISTRATIVE ASSISTANT - STREET LIGHT SERVICER SUPERVISOR [address] [facility] [place] [phone] PCP - GeneralFamily Nurse Practitioner08/02/22documented as of this encounter
--- OUTSIDE RECORDS SUMMARY | 2025-06-04 16:04 | XMS_ITS | Encounter Summary ---
Author Organization [facility] Address [address] [place] [address] Care Team Providers Care Airport Operations Coordinator Name Role Phone Unavailable Primary Care Provider Unavailabl e Encounter Details DateTypeDepartmentCare Team (Latest Contact Info)Fuuohrnvuub24/06/2025Clinisync Result Encounter [facility] Unsolicited Britt Foy, DO [address] [place], [place] [phone] Social History Tobacco UseTypesPacks/DayYears UsedDateSmoking Tobacco: NeverSmokeless Tobacco: NeverAlcohol UseStandard Drinks/WeekCommentsNever0 (1 standard drink = 0.6 oz pure alcohol)Estimated Date of VofoxyyuIorihfndEqt87/01/2025Based on last menstrual period of 09/16/2024Sex and Gender InformationValueDate Recorded Sex Assigned at BirthNot on fileLegal StkYnccwf68/15/2023 11:47 PM EDTGender IdentityNot on fileSexual OrientationNot on filedocumented as of this encounter Plan of Treatment DateTypeDepartmentCare Team (Latest Contact Info)Omvapzzlkvs33/05/2026 4:00 PM ESTOffice Visit [facility] [address] [place] [phone] Britt Foy DO [address] [place] [address] documented as of this encounter Goals GoalPatient Goal TypeAssociated ProblemsRecent ProgressPatient-Stated?Author Reminders Care PlanOB RemindersNoOpen Scheduling, Backgrounddocumented as of this encounter Procedures Procedure NamePriorityDate/TimeAssociated DiagnosisCommentsUS OB BPP W NON-CAKYDN7705/29/2025 10:10 AM EST documented in this encounter Results * US OB BPP W NON-STRESS (05/29/2025 10:10 AM EST)Anatomical Region LateralityModalityOtherSpecimen (Source)Anatomical Location / Laterality Collection Method / VolumeCollection TimeReceived Time05/29/2025 10:10 AM EST Narrative 05/29/2025 10:13 AM EST [facility] ?[address] ? [place] [address] ? Ultrasound Report ? Signed ? Patient: VINNY HERRERA ?MR#: [id number] ?? : 2000 ?Acct:[id number] ?? Age/Sex: 24 / F ?ADM Date: 05/28/25 ?? Loc: US ? Attending Dr: Britt Foy D.O. ? Ordering Physician: Britt Foy D.O. ?? Date of Service: 05/28/25 ?? Procedure(s): US OB BPP w non-stress ?? Accession Number(s): [id number] ? cc: Britt Foy D.O.; Ynes Mistry EQUINE MANAGER ? [facility] ? [address] ? [place] [address] ? Patient Name: ?? VINNY HERRERA ? MRN: [facility]:[id number] ? date: 2000 ?Sex: F ?? Assigned Patient Location: [place] ?? Current Patient Location: [place] ?? Accession/Order Number: [id number] ?? Exam Date: 05/28/2025 ??16:05 ?Report Date: [...] Dictation Location: RADIO-PC-02 ? Electronically authenticated by: [id number] ??Y ?? Date: 05/29/2025 ??10:10 ? Dictated By: ?Criselda Flores M.D. ? Signed By: ?11/06/25 1013 ? DD/ 1010 ? TD/TT: ? Business Administration Teacher: Procedure Note Radiology, Radiologist, - 05/29/2025 [place] [address] Ultrasound Report Signed Patient: VINNY HERRERA CMR#: [id number] : 2000Acct:[id number] Age/Sex: 24 / FADM Date: 05/28/25 Loc: US Attending Dr: Britt Foy D.O. Ordering Physician: Britt Foy D.O. Date of Service: 05/28/25 Procedure(s): US OB BPP w non-stress Accession Number(s): [id number] cc: Britt Foy D.O.; Ynes Mistry EQUINE MANAGER The [place] [id number] Patient Name: VINNY HERRERA MRN: [id number] date: 2000 Sex: F Assigned Patient Location: [place] Current Patient Location: [place] Accession/Order Number: [id number] Exam Date: 05/28/2025 16:05 Report Date: 05/29/2025 [...] Flores M.D. 05/29/2025 10:10 AM Dictation Location: [place] [address] Electronically authenticated by: [id number] Y Date: 0:10 Dictated By: Criselda Flores M.D. Signed By:05/29/25 1013 DD/ 1010 TD/TT: Business Administration Teacher: Authorizing ProviderResult TypeResult StatusCorey Law DOCLINISYNC IMAGINGFinal Result documented in this encounter Visit Diagnoses Not on filedocumented in this encounter Additional Health Concerns Active ProblemsNoted DateDiagnosed DateOB Mebhxsyxv57/09/2025 documented as of this encounter
--- OUTSIDE RECORDS SUMMARY | 2025-06-04 16:04 | XMS_ITS | Encounter Summary ---
Author Organization [facility] Address [address], [address] [place] [address] Care Team Providers Care Tank Pumper Panelboard Name Role Phone Ynes Mistry HIGH SCHOOL PROFESSIONAL - MATH INTERVENTIONIST Primary Care Provide r Reason for Visit * ReasonCommentsMedication Refill Encounter Details DateTypeDepartmentCare Team (Latest Contact Info)Zwatypmljpq21/05/2025[facility] [address] [place] [address] [address] [place] [address] Ynes Msitry HIGH SCHOOL PROFESSIONAL - MATH INTERVENTIONIST [address] [place] [address] Dr [address] [place] [phone] Medication Refill Social History Tobacco UseTypesPacks/DayYears UsedDateSmoking Tobacco: NeverSmokeless Tobacco: NeverAlcohol UseStandard Drinks/WeekCommentsNot Currently0 (1 standard drink = 0.6 oz pure alcohol)socialAH UtilitiesAnswerDate RecordedIn the past 12 months has the electric, gas, oil, or water [employer] threatened to shut off services in your home?No10/07/2024Overall Financial Resource Strain (CARDIA)AnswerDate RecordedHow hard is it for you to pay for the very basics like food, housing, medical care, and heating?Not hard at all07/13/2023HQ-2AnswerDate RecordedPHQ-9 Total Jmbeb260Hunger Vital SignAnswerDate RecordedWithin the past 12 months, [...] were you homeless or living in a jail (including now)?No10/07/2024Food InsecurityAnswerDate RecordedWithin the past 12 months, you worried that your food would run out before you got the money to buy more.Within the past 12 months, the food you bought just didn't last and you didn't have money to get more.CommentsNoSex and Gender InformationValueDate RecordedSex Assigned at NscuyNzoylj63/28/2024 8:24 PM EDTLegal UcjOywwck52/10/2013 3:31 PM ESTGender FzflirywKhvdhi10/28/2024 8:24 PM EDTSexual OrientationNot on filedocumented as of this encounter Plan of Treatment Not on file documented as of this encounter Visit Diagnoses Not on filedocumented in this encounter Care Teams Team MemberRelationshipSpecialtyStart DateEnd Date Ynes Mistry, HIGH SCHOOL PROFESSIONAL - MATH INTERVENTIONIST [address] [facility] [place] [address] PCP - GeneralFamily Nurse Practitioner08/02/22documented as of this encounter
--- OUTSIDE RECORDS SUMMARY | 2025-06-04 16:07 | XMS_ITS | CCD ---
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 [employer] PRECINCT, Ynes Conner Primary Care Provide r Unavailable Primary Care Provider Unavailabl e LAW ., DR DE LA TORRE Attending Unavailable MISC, DR YAÑEZ Primary Care Unavailable [place], DR YELENA Henao Consulting Unavailable LAW ., [...] Unavailable MISC, DR YAÑEZ Primary Care Unavailable [place], DR YELENA Henao Consulting Unavailable LAW ., [...] RODRIGUEZ Referring Unavailable MUKUL FOY Attending Unavailable LAW, MUKUL Attending Unavailable LAW, MUKUL Referring Unavailable LAW, MUKUL Attending Unavailable LAW, MUKUL Attending Unavailable ALW, MUKUL Attending Unavailable REGINA BARTON Attending Unavailable REGINA BARTON Attending Unavailable CEASAR LI Attending Unavailable LAW, MUKUL Attending Unavailable REGINA BARTON Attending Unavailable LAW, MUKUL Attending Unavailable LAW, MUKUL Attending Unavailable Medications Current Medications MedicationDrug Class(es)DatesSig (Normalized)Sig (Original)atorvastatin 10 mg oral tablet (1 source)HMG-CoA Reductase InhibitorStart: 90-36-8851hcqv 1 tablet by mouth once dailyatorvastatin (LIPITOR) 10 MG tablet Take 1 tablet by mouth daily 30 tablet 5 02/20/2024 Activecephalexin 500 mg oral capsule (4 sources)Cephalosporin AntibacterialStart: 04-03-2025 End: 87-49-0419hkbl 1 capsule by mouth in the morning, [...] mg oral tablet (8 sources)Histamine-1 Receptor AntagonistStart: 08-52-4964ejgs 1 tablet by mouth once dailycetirizine (ZYRTEC) 10 MG tablet Take 1 tablet by mouth daily 90 tablet 3 03/12/2021 ActiveStart: 34-48-8165kpwt 1 tablet by mouth once daily cetirizine (ZYRTEC) 10 MG tablet Take 1 tablet by mouth daily 90 tablet 3 06/29/2020 Activedrospirenone 4 mg oral tablet (1 source)ProgestinStart: 23-78-9298aedx 1 tablet by mouth once daily Drospirenone (SLYND) 4 MG TABS Indications: Irregular menses Take 1 tablet by mouth daily 84 tablet4 05/12/2021 Activedrospirenone 3 mg / ethinyl estradiol 0.03 mg oral tablet (9 sources)Progestin, EstrogenStart: 64-13-4906JKVYT 3-0.03 MG TABS Indications: Irregular menses TAKE 1 TABLET DAILY 84 tablet 0 05/03/2021 ActiveStart: 30-36-5944opkj 1 tablet by mouth once dailydrospirenone-ethinyl estradiol (CHANDANA 28) 3-0.03 MG TABS Indications: Irregular menses Take 1 tablet by mouth daily 3 packet 4 03/03/2020 ActiveEthinyl Estradiol / Ferrous fumarate / Norethindrone (6 sources)EstrogenStart: 53-52-1814KKSAI FE 24 1-20 MG-MCG(24) TABS Indications: DUB (dysfunctional uterine bleeding) TAKE 1 TABLET DAILY 84 tablet 1 08/27/2018 ActiveStart: 55-20-5237ahld 1 tablet by mouth once dailyNorethin David-Eth Estrad-FE 1-20 MG-MCG(24) TABS Indications: Irregular menses Take 1 tablet by mouth daily 28 tablet 12 05/04/2018 ActiveStart: 59-97-9648xgcm 1 tablet by mouth once dailyNorethin David-Eth Estrad-FE ( 24) 1-20 MG- MCG(24) TABS Indications: Irregular menses Take 1 tablet by mouth daily 84 tablet 3 07/21/2017 Activefexofenadine / Pseudoephedrine (2 sources)alpha-Adrenergic Agonist, Histamine-1 Receptor Antagonist Fexofenadine-Pseudoephedrine (JOSÉ MIGUEL-D PO) Take by mouth 0 Activefluconazole 150 mg oral tablet (1 source)Azole AntifungalStart: 94-95-5903wzpu 1 tablet by mouth once daily as neededfluconazole (DIFLUCAN) 150 MG tablet Indications: Vaginal yeast infection Take 1 tablet by mouth daily as needed (yeast) 1 tablet 11 03/24/2020 Active fluticasone propionate 0.05 mg/actuat metered dose nasal spray (5 sources)Corticosteroidfluticasone (FLONASE) 50 MCG/ACT nasal spray 1 spray by Each Nare route daily 0 Active3 ml insulin glargine 100 unt/ml pen injector (20 sources)Insulin AnalogStart: 06-02-2025 End: 61-25-0048hqrwczw glargine (Lantus SoloStar) 100 UNIT/ML pen Indications: Hyperglycemia Inject 17 Units underthe skin at bedtime FILL ACCORDING TO INSURANCE COVERAGE 3 mL 06/02/2025 07/02/2025 ActiveStart: 05-14-2025 End: 19-44-9503wrrcqsa glargine (Lantus SoloStar) 100 UNIT/ML pen Indications: Hyperglycemia Inject 15 Units underthe skin at bedtime FILL ACCORDING TO INSURANCE COVERAGE 3 mL 05/14/2025 06/02/2025 Discontinued (Dose adjustment) Start: 04-07-2025 End: 72-74-9703ycevnd 10 [IU] by subcutaneous injection at bedtimeinsulin glargine (Lantus SoloStar) 100 UNIT/ML pen Indications: Hyperglycemia Inject 10 Units underthe skin at bedtime FILL ACCORDING TO INSURANCE COVERAGE 3 mL 04/07/2025 05/14/2025 Discontinued (Reorder)loratadine 10 mg oral capsule (2 sources)take 1 capsule by mouth once dailyloratadine (CLARITIN) 10 MG capsule Take 10 mg by mouth daily 0 Bmezvy36 hr metFORMIN hydrochloride 500 mg extended release oral tablet (20 sources)BiguanideStart: 02-11-2025 End: 37-37-3444anlj 2 tablets by mouth every twenty-four hours at mealtime metFORMIN XR (Glucophage-XR) 500 MG 24 hr tablet Indications: Second trimester ([facility]) , 20 weeks gestation of ([facility]) Take 2 tablets (1,000 mg) by mouth in the evening. Take with meals 60 tablet 5 02/11/2025 08/10/2025 ActiveStart: 11-05-2024 End: 97-86-5300ceyt 1 tablet by mouth every twenty-four hours in the morning metFORMIN XR (Glucophage-XR) 500 MG 24 hr tablet Take 1,000 mg by mouth in the morning and 1,000 mgin the evening. 11/05/2024 02/11/2025 Discontinued (Reorder) Start: 11-05-2024 End: 63-75-4365cnqLCITMK (GLUCOPHAGE-XR) 500 MG extended release tablet Indications: BMI 37.0-37.9, adult , Class 2 obesity with body mass index (BMI) of 37.0 to 37.9 in adult, unspecified obesity type, unspecifiedwhether serious comorbidity present TAKE 2 TABLETS BY MOUTH IN THE MORNING AND AT BEDTIME 120 tablet 5 11/05/2024 05/04/2025 ActiveStart: 04-26-2024 End: 69-77-8901vrlPJDEQO (GLUCOPHAGE-XR) 500 MG extended release tablet Indications: BMI 37.0-37.9, adult , Class 2 obesity with body mass index (BMI) of 37.0 to 37.9 in adult, unspecified obesity type, unspecifiedwhether serious comorbidity present Take 2 tablets by mouth in the morning and at bedtime 360 tablet 1 04/26/2024 10/23/2024 Activemetoclopramide 10 mg oral tablet (20 sources)Dopamine-2 Receptor AntagonistStart: 03-12-2025 End: 15-21-7728loxrfaufkxksyr (Reglan) 10 MG tablet Indications: Gastroesophageal reflux [...] 50 mg oral capsule (4 sources)Nitrofuran AntibacterialStart: 47-93-6550pdvm 1 capsule by mouth once dailynitrofurantoin (MACRODANTIN) 50 MG capsule Indications: Recurrent UTI Take 1 capsule by mouth nightly 30 capsule 0 03/03/2020 Activepantoprazole 40 mg delayed release oral tablet (20 sources)Proton Pump InhibitorStart: 02-26-2025 End: 74-07-8981ayju 1 tablet by mouth before mealtimepantoprazole (Protonix) 40 MG EC tablet Indications: 23 weeks gestation of ([facility]) , Elevated blood sugar level , Gastroesophageal reflux disease without esophagitis Take 1 tablet (40 mg)by mouth in the morning. Take before meals. Do not crush, chew, or split. 30 tablet 11 02/26/2025 02/26/2026 Activephentermine hydrochloride 37.5 mg oral tablet (1 source)Sympathomimetic Amine AnorecticStart: 05-01-2024 End: 80-77-0249xsir 37-37.9 tablets by mouth once dailyphentermine (ADIPEX-P) [...] mg oral capsule (12 sources)Start: 04-02-2025 End: 65-11-5071bant 1 capsule by mouth once dailyiron polysaccharides (ProFe) 391.3 (180 Fe) MG capsule Indications: Dizziness Take 1 capsule (391.3mg) by mouth Daily 30 capsule 6 04/02/2025 05/02/2025 ActiveProbiotic Product (PROBIOTIC ADVANCED PO) (6 sources)Probiotic Product (PROBIOTIC ADVANCED PO) Take by mouth Active Probiotic Product (PROBIOTIC ADVANCED PO) Take by mouth 0 ActiveProgesterone (1 source)ProgesteroneStart: 69-30-4888Xaegfchptrlt [address] 200 mg vaginally nightly 10/16/2024 ActiveProgesterone 200 MG suppository (2 sources)Start: 11-14-2024 End: 40-30-7406Bhjbhxdlautu 200 MG suppository Indications: History of miscarriage Insert 200 mg into the vagina at bedtime Insert suppository vaginally every night at bedtime until 12 weeks gestation 30 suppository 2 11/14/2024 12/14/2024 ActiveStart: 10-16-2024 End: 50-88-7570Coqsoaoufuqx 200 MG suppository Indications: History of miscarriage Insert 200 mg into the vagina at bedtime Insert suppository vaginally every night at bedtime until 12 weeks gestation 30 suppository 3 10/16/2024 11/14/2024 Discontinued (Reorder)sertraline 25 mg oral tablet (20 sources)Serotonin Reuptake InhibitorStart: 38-68-6747atnt 1 tablet by mouth once dailysertraline (ZOLOFT) 25 MG tablet Take 1 tablet by mouth daily 30 tablet 5 11/12/2024 ActiveStart: 01-18-7436vadi 1 tablet by mouth once daily in the morningsertraline (Zoloft) 50 MG tablet Indications: Anxiety, generalized TAKE 1 TABLET BY MOUTH EVERY DAYIN THE MORNING 30 tablet 3 10/25/2024 Active Start: 59-76-0004irii 1 tablet by mouth once daily in the morningsertraline (Zoloft) 50 MG tablet Indications: Anxiety, generalized (CMS/HCC) TAKE 1 TABLET BY MOUTHEVERY DAY IN THE MORNING 30 tablet 3 06/27/2024 ActiveStart: 10-17-2023 take 1 tablet by mouth once dailysertraline (ZOLOFT) 50 MG tablet Indications: Anxiety Take 1 tablet by mouth daily 30 tablet 10/17/2023 ActiveStart: 54-59-0819dsir 1 tablet by mouth once dailysertraline (ZOLOFT) 25 MG tablet Indications: Anxiety Take 1 tablet by mouth daily 90 tablet 3 03/29/2022 Active Start: 50-18-5601jkzo 1 tablet by mouth once dailysertraline (ZOLOFT) 25 MG tablet Take 1 tablet by mouth daily 90 tablet 3 03/12/2021 ActiveStart: 34-99-0281lozp 1 tablet by mouth once dailysertraline (ZOLOFT) 50 MG tablet Take 1 tablet by mouth daily 30 tablet 2 08/17/2020 Activesulfamethoxazole 800 mg / trimethoprim 160 mg oral tablet (2 sources)Dihydrofolate Reductase Inhibitor Antibacterial, Sulfonamide AntimicrobialStart: 46-16-3385vmfd 1 tablet by mouth every twelve hours sulfamethoxazole-trimethoprim (BACTRIM DS;SEPTRA DS) 800-160 MG per tablet TAKE 1 TABLET BY MOUTH EVERY 12 HOURS FOR 7 DAYS 0 02/24/2020 ActiveTirzepatide (MOUNJARO) 2.5 MG/0.5ML SOPN SC injection (1 source)Start: 04-55-8646Ctnhzdwvfyf (MOUNJARO) 2.5 MG/0.5ML SOPN SC injection Indications: Mixed hyperlipidemia , BMI 37.0-37.9, adult , Class 2 obesity with body mass index (BMI) of 37.0 to 37.9 in adult, unspecified obesity type, unspecified whether serious comorbidity present Inject 0.5 mLs into the skin once a week 4 mL 1 05/01/2024 ActivetraZODone hydrochloride 50 mg oral tablet (1 source)Serotonin Reuptake InhibitorStart: 23-18-2863yrdk 0.5 tablet by mouth once dailytraZODone (DESYREL) 50 MG tablet Take 0.5 tablets by mouth nightly 30 tablet 2 05/01/2020 Active Completed/Discontinued Medications MedicationDrug Class(es)DatesSig (Normalized)Sig (Original)norethindrone 0.35 mg oral tablet (2 sources)Start: 03-10-2023 End: 69-19-2746vcry 1 tablet by mouth in the morningnorethindrone (Micronor) 0.35 MG tablet Indications: General counseling and advice on contraceptive management Take 1 tablet (0.35 mg) by mouth in the morning. 28 tablet 11 03/10/2023 07/15/2024 Discontinued (Therapy completed)omeprazole 20 mg delayed release oral capsule (8 sources)Proton Pump InhibitorStart: 01-15-2025 End: 61-87-5281goka 1 capsule by mouth before mealtimeomeprazole (PriLOSEC) [address] capsule Indications: Gastroesophageal Reflux Disease , Heartburn Take 1 capsule (20 mg) by mouth in the morning. Take before meals. Do not crush or chew. 30 capsule 3 01/15/2025 02/26/2025 Discontinued (Formulary change) Problems Active Problems Problem ClassificationProblemDateDocumented DateEpisodic/Chronic Administrative/social admission (4 sources)Dietary counseling and surveillance; Translations: [DIETARY COUNSELING AND SURVEILLANCE]Onset: 27-70-0241SshrswyeErnnaeq disorders (20 sources)Anxiety; Translations: [Anxiety disorder, unspecified]Onset: 849614-74-6296NblsarrQnczerycfc associated with dizziness or vertigo (2 sources)Dizziness; Translations: [Dizziness and giddiness]94-43-6139Ufrlfwnq Deficiency and other anemia (2 sources)Anemia; Translations: [Anemia, unspecified]21-37-4725FexzjbzxSwmzskms or abnormal glucose tolerance complicating ; childbirth; or the puerperium (16 sources)Gestational diabetes mellitus in , unspecified control; Translations: [Gestational diabetes mellitus complicating ]Onset: 463864-83-6741EdhvokxhOfdlrqkon of lipid metabolism (7 sources)Mixed hyperlipidemia; Translations: [Mixed hyperlipidemia]Onset: 622620-81-2486NafsmlyVbnlohcmzr disorders (6 sources)Gastroesophageal reflux disease; Translations: [Gastro-esophageal reflux disease without esophagitis]Onset: hronic Genitourinary symptoms and ill-defined conditions (2 sources)Urinary symptoms ; Translations: [Unspecified symptoms and signs involving the genitourinary system]61-23-7564ZanhjcvwJutvguaxty during ; abruptio placenta; placenta previa (1 source)Other antepartum hemorrhage, first trimester; Translations: [Other antepartum hemorrhage, first trimester]Onset: 03-37-2471DiavodwxOwwoyekssfmqx and screening for infectious disease (4 sources)Encounter for screening for infections with a predominantly sexual mode of transmission; Translations: [Encounter for screening for human papillomavirus (HPV)]Onset: 823208-15-5519RtxolgyiLriihvzkoabae mental health disorders (20 sources)Insomnia disorder related to another mental disorder; Translations: [Insomnia due to other mental disorder]Onset: 05-02-2020 Resolved: 633015-32-0438JoswoqbGifbn complications of (4 sources)Maternal care for excessive growth, third trimester, not applicable or unspecified; Translations: [MAT CARE EXCSS FTL GRTH 3RD TRI UNS] Onset: 22-83-5677SwwqzwsnGyeof complications of (3 sources)Maternal care for excessive growth, unspecified trimester, not applicable or unspecified; Translations: [MAT CARE EXCSS FTL GRTH UNS TRI UNS] Onset: 82-75-2471LntgnrtwFtnhm complications of (2 sources)Gastroesophageal reflux disease in ; Translations: [Diseases of the digestive system complicating , unspecified trimester] 49-90-5336DhqjxxyaHlwjq female genital disorders (20 sources)Pain in female genitalia on intercourse; Translations: [Unspecified dyspareunia]Onset: 11-30-2020 Resolved: 988166-58-1405QdstbgmEkuwz female genital disorders (2 sources)Vaginal discharge; Translations: [Other specified noninflammatory disorders of vagina]49-32-8855TmcxcnybPtwcg injuries and conditions due to external causes (4 sources)Encounter for examination and observation following other accident; Translations: [ENC EXAM AND OBSERVATION FOLLOW OTH ACC]Onset: 03-68-5689Eohnvbgj Other liver diseases (3 sources)Steatosis of liver; Translations: [Fatty (change of) liver, not elsewhere classified]Onset: 287296-56-5387MwaxswrAupmb nutritional; endocrine; and metabolic disorders (1 source)Body mass index 30+ - obesity; Translations: [Body mass index (BMI) 37.0-37.9, adult]Onset: 344149-03-3239KibckwfMuqzi nutritional; endocrine; and metabolic disorders (3 sources)Obesity; Translations: [Class 2 obesity with body mass index (BMI) of 37.0 to 37.9 in adult]Onset: 409406-56-1038AdygssgKuixt and delivery including normal (20 sources)Encounter for supervision of normal , unspecified, unspecified trimester; Translations: [ state, incidental]Onset: 12-56-8008LioxqxrpTisie screening for suspected conditions (not mental disorders or infectious disease) (20 sources)Encounter for other screening follow-up; Translations: [Encounter for screening, unspecified]Onset: 39-68-9558KvpcnspfRdpdx upper respiratory disease (8 sources)Seasonal allergic rhinitis; Translations: [Other seasonal allergic rhinitis]Onset: 901380-02-0670AfbgcrvZzwjgcnuoosurc and other problems of amniotic cavity (4 sources)Subchorionic hematoma; Translations: [Other specified disorders of amniotic fluid and membranes, first trimester, not applicable or unspecified] Onset: 593012-35-6783JrlodkmxXsruerzg codes; unclassified (1 source)34 weeks gestation of ; Translations: [34 WEEKS GESTATION OF ]Onset: 32-92-1003LlzqjxxySuolfrby codes; unclassified (1 source)33 weeks gestation of ; Translations: [33 WEEKS GESTATION OF ]Onset: 93-32-5635SdddrclxBmxjyvup codes; unclassified (1 source)Gestation period, 8 weeks; Translations: [8 weeks gestation of ]28-06-4731JlqocudiHkwpzikb codes; unclassified (3 sources)H/O: miscarriage; Translations: [Personal history of other complications of , childbirth and the puerperium]14-74-5192Xhzejzed Residual codes; unclassified (2 sources)Gestation period, 12 weeks; Translations: [12 weeks gestation of ]07-05-0132LceepmexOjnlgenf codes; unclassified (2 sources)Gestation period, 17 weeks; Translations: [17 weeks gestation of ]51-00-0506NlhokpflEivnpkrw codes; unclassified (2 sources)Gestation period, 20 weeks; Translations: [20 weeks gestation of ]37-02-5876VejhngsiUqrihmxb codes; unclassified (2 sources)Gestation period, 25 weeks; Translations: [25 weeks gestation of ]42-97-0992CmuuvldnMwsdecxv codes; unclassified (2 sources)Gestation period, 28 weeks; Translations: [28 weeks gestation of ]51-88-5493ZeuxitfjZfcjguzw codes; unclassified (2 sources)Gestation period, 30 weeks; Translations: [30 weeks gestation of ]00-15-1391LkyxganbOqhbbugk codes; unclassified (2 sources)Gestation period, 32 weeks; Translations: [32 weeks gestation of ]15-02-7979JgwirwojVqchxjpo codes; unclassified (2 sources)Gestation period, 34 weeks; Translations: [34 weeks gestation of ]12-27-4164BmwhsomhLxfmzxlv codes; unclassified (2 sources)Gestation period, 36 weeks; Translations: [36 weeks gestation of ]50-13-1604LuirnlrgLrhvwuww codes; unclassified (2 sources)Gestation period, 37 weeks; Translations: [37 weeks gestation of ]02-42-0418AguvrykpOylanqcuztap (1 source)Cancer cervix screening status; Translations: [Screening for cervical cancer]Unclassified (3 sources)Patient encounter status; Translations: [Encounter for annual routine gynecological examination]Unclassified (20 sources)OB RemindersOnset: 949527-22-3799 Past or Other Problems Problem ClassificationProblemDateDocumented DateEpisodic/ChronicCardiac dysrhythmias (2 sources)Palpitations; Translations: [Palpitations]Onset: 80-62-4751Ogftmonq Deficiency and other anemia (3 sources)Iron deficiency anemia; Translations: [Iron deficiency anemia, unspecified]Onset: 425281-38-9372WqigtdhaEyszzyxyku and other anemia (1 source)Iron deficiency anemia, unspecified; Translations: [Iron deficiency anemia, unspecified]Onset: 26-86-0233SeawfnnkKgggbssq mellitus without complication (20 sources)Other abnormal glucose; Translations: [Abnormal glucose level]Onset: 95-61-3926ShlffrsmQwznryr and fatigue (20 sources)Fatigue; Translations: [Other fatigue]Onset: EpisodicMenstrual disorders (20 sources)Amenorrhea; Translations: [Amenorrhea, unspecified]Onset: 06-23-2022 Resolved: 09-98-9752RajrwrbBzaqm disorders of stomach and duodenum (20 sources)Indigestion; Translations: [Functional dyspepsia]Onset: 01-13-2023 15-82-5647LmwevaszGzjcy female genital disorders (4 sources)Other specified noninflammatory disorders of vagina; Translations: [OTH SPEC NONINFLAMMATORY D/O VAGINA]Onset: 30-42-1981DemiizcoHspyv gastrointestinal disorders (20 sources)Heartburn; Translations: [Heartburn]Onset: EpisodicOther liver diseases (4 sources)Elevated liver enzymes level; Translations: [Abnormal levels of other serum enzymes]Onset: 528477-30-2497SanmtdsrUzxdp liver diseases (1 source)Abnormal levels of other serum enzymes; Translations: [Abnormal levels of other serum enzymes]Onset: 41-45-9326NnqjhnsxZqklt skin disorders (3 sources)Acne; Translations: [Acne, unspecified]Onset: 10-17-2023 Resolved: 098627-61-5060VeqbmbnxRdwhl upper respiratory infections (2 sources)Sore throat symptom; Translations: [Acute pharyngitis, unspecified] Onset: 09-10-2024 Resolved: 065936-94-2199QcbnenzbAsywserc codes; unclassified (1 source)Family history of other diseases of the digestive system; Translations: [Family history of other diseases of the digestive system]Onset: 66-85-4757WbdowcdrBsgztmcd codes; unclassified (20 sources)Gestation period, 23 weeks; Translations: [23 weeks gestation of ]Onset: 309354-35-7388RfelinsrKqiazkw tract infections (20 sources)Recurrent urinary tract infection; Translations: [Urinary tract infection, site not specified]Onset: 11-30-2020 Resolved: 52-10-3732Wqnpukdk Results Test NameValueInterpretationReference RangeFacilitySTREP GP B CULTURE+RFLXon 76-39-5621LGZQT GP B CULTURE+RFLX Strep Gp B Culture+Rflx [facility] HealthcareSTREP GP B CULTURE+RFLXNegativeNOMS HealthcareSTREP GP B CULTURE+RFLXCenters for Disease Control and Prevention (CDC) andNOOK Healthcare STREP GP B CULTURE+RFLXAmerican Congress of Obstetricians and GynecologistsNOMS HealthcareSTREP GP B CULTURE+RFLX(ACOG) guidelines for prevention of group BNOMS HealthcareSTREP GP B CULTURE+RFLXstreptococcal (GBS) disease specify co-collection ofNOMS HealthcareSTREP GP B CULTURE+RFLXa vaginal and rectal swab specimen to maximizeNOMS HealthcareSTREP GP B CULTURE+RFLXsensitivity of GBS detection. Per the CDC and ACOG,N[facility] HealthcareSTREP GP B CULTURE+RFLXswabbing both the lower vagina and rectumNOMS HealthcareSTREP GP B CULTURE+RFLX substantially increases the yield of detectionNOMS HealthcareSTREP GP B CULTURE+RFLXcompared with sampling the vagina alone.[facility] HealthcareSTREP GP B CULTURE+RFLXPenicillin G, ampicillin, or cefazolin are indicatedNOMS Healthcare STREP GP B CULTURE+RFLXfor intrapartum prophylaxis of GBSNOMS HealthcareSTREP GP B CULTURE+RFLXcolonization. Reflex susceptibility testing should beNOMS HealthcareSTREP GP B CULTURE+RFLXperformed prior to use of clindamycin only on GBSNOMS HealthcareSTREP GP B CULTURE+RFLXisolates from penicillin-allergic women who areNOMS HealthcareSTREP GP B CULTURE+RFLX considered a high risk for anaphylaxis. Treatment withNOMS HealthcareSTREP GP B CULTURE+RFLXvancomycin without additional testing is warranted ifNOMS Healthcare STREP GP B CULTURE+RFLXresistance to clindamycin is noted.N[facility]S HealthcareSTREP GP B CULTURE+RFLXPerformed at: CB - [facility] HealthcareSTREP GP B CULTURE+[id number] [place], [place] [id number] HealthcareSTREP GP B CULTURE+RFLXLab Director: Elian Mccray PhD, Phone: [phone] HealthcareCLINISYNCNOMS HealthcareUrinalysis macro (dipstick) panel (U)on 53-94-4699Cgdbcwkwi, UANegativeNegative - 4(70) +++ mg/dLNOMS HealthcareBlood, UANegativeNegative - 50 Yunior/mcLNOMS HealthcareClarity, UACloudyNOMS Healthcare Color, UAYellowNOMS HealthcareGlucose, UANegativeNegative - 2000(110) ++++ mg/dL N[facility] HealthcareInterpretation and review of laboratory resultsNormalNOMS HealthcareKetones, UANegativeNegative - 160(16) ++++ mg/dLNOMS Healthcare Leukocytes, UANegativeNegative - 500+++ Trip/mcLNOMS HealthcareNitrite, UA NegativeNegative - PositiveNOMS HealthcarepH, UA6.55 - 9NOMS HealthcareProtein, UANegativeNegative - 2000(20) ++++ mg/dLNOMS HealthcareSpec Grav, UA1.0151 - 1.03NOMS HealthcareUrobilinogen, UA1.00.2 - 12 mg/dLNOMS HealthcareNOMS HealthcareUS OB BPP W NON-STRESSon 52-65-46[address] [address] Ultrasound Report Signed Patient: VINNY DOWNEY MR#: [id number] : 2000 Acct:[id number] Age/Sex: 24 / F ADM Date: 05/28/25 Loc: US Attending Dr: Mukul Foy D.O. Ordering Physician: Mukul Foy D.O. Date of Service: 05/28/25 Procedure(s): US OB BPP w non-stress Accession Number(s): [id number] cc: Mukul Foy D.O.; Ynes Rodriguez NP [facility] [place] [id number] Patient Name: VINNY DOWNEY MRN: [id number] date: 2000 Sex: F Assigned Patient Location: [place] Current Patient Location: Accession/Order Number: [id number] Exam Date: 05/28/2025 16:05 Report Date: 05/29/2025 [...] Flores M.D. 05/29/2025 10:10 AM Dictation Location: [place] [address] Electronically authenticated by: [id number] Y Date: 05/29/2025 10:10 Dictated By: Criselda Flores M.D. Signed By: 05/29/25 1013 DD/ 1010 TD/TT: Clarifier Operator Helper:MILYHRadiology, Radiologist, - 05/29/2025 [place] [address] Ultrasound Report Signed Patient: VINNY DOWNEY MR#: [id number] : 2000 Acct:[id number] Age/Sex: 24 / F ADM Date: 05/28/25 Loc: US Attending Dr: Mukul Foy D.O. Ordering Physician: Mukul Foy D.O. Date of Service: 05/28/25 Procedure(s): US OB BPP w non-stress Accession Number(s): [id number] cc: Mukul Foy D.O.; Ynes Rodriguez NP [place] [address] Patient Name: VINNY DOWNEY MRN: [id number] date: 2000 Sex: F Assigned Patient Location: US Current Patient Location: US Accession/Order Number: [id number] Exam Date: 05/28/2025 16:05 Report Date: 05/29/2025 [...] Flores M.D. 05/29/2025 10:10 AM Dictation Location: [place] [address] Electronically authenticated by: [id number] Y Date: 05/29/2025 10:10 Dictated By: Criselda Flores M.D. Signed By: 05/29/25 1013 DD/ 1010 TD/TT: Clarifier Operator Helper: DIANE HealthcareRadiology Study observation (narrative)NOMS HealthcareUS OB BPP W NON-STRESSOrdered By: Radiologist Radiology on 09-77-1016BMZI Healthcare Work Phone: US OB FOLLOW UP TRANSABDOMINAL APPROACHon 21-12-7446QQ OB FOLLOW UP TRANSABDOMINAL APPROACHFINDINGS: Comparison February [...] menstrual period. TRANSCRIBED BY: ELECTRONICALLY SIGNED BY: Franklin ToddNot AvailableComment on above:Order Comment: US OB SCAN FOR GROWTH Estimated Date of Delivery: 06/23/25 Gestational Age as of 05/14/2025: 31c9iAasbpwsbcf macro (dipstick) panel (U)on 63-96-4770Uwidduqhw, UANegativeNegative - 4(70) +++ mg/dLNOMS HealthcareBlood, UANegativeNegative [...] mg/dLNOMS HealthcareNOMS HealthcareUS OB BPP W NON-STRESSon 72-47-5184[place]bl[place], [place] [address] Ultrasound Report Signed Patient: VINNY DOWNEY MR#: [id number] : 2000 Acct:[id number] Age/Sex: 24 / F ADM Date: 05/21/25 Loc: US Attending Dr: Mukul Foy D.O. Ordering Physician: Mukul Foy D.O. Date of Service: 05/21/25 Procedure(s): US OB BPP w non-stress Accession Number(s): [id number] cc: Mukul Foy D.O.; Ynes Rodriguez [place] [address] Patient Name: VINNY DOWNEY MRN: [facility]:[id number] date: 2000 Sex: F Assigned Patient Location: [facility] Current Patient Location: Accession/Order Number: [id number] Exam Date: 05/21/2025 16:12 Report Date: 05/21/2025 19:56 At the request of: MUKUL FOY DO Procedure: US OB BPP w non-stress Ultrasound biophysical profile INDICATION: Gestational diabetes COMPARISON: 05/07/2025 FINDINGS/IMPRESSION:: Fetus cephalic position. 8/8 score biophysical profile. heart rate 139 beats per minutes. JAMAL 19.1 cm . Impression dictated by: Chevy Moreland M.D. 05/21/2025 7:56 PM Dictation Location: [place] [address] Electronically authenticated by: [id number] Y Date: 05/21/2025 19:56 Dictated By: Chevy Moreland M.D. Signed By: 05/21/251958 DD/ 55 TD/TT: Clarifier Operator Helper:JAMILAHadiolSkip chaves, - 05/21/2025 [place] [address] Ultrasound Report Signed Patient: VINNY DOWNEY MR#: [id number] : 2000 Acct:[id number] Age/Sex: 24 / F ADM Date: 05/21/25 Loc: US Attending Dr: Mukul Foy D.O. Ordering Physician: Mukul Foy D.O. Date of Service: 05/21/25 Procedure(s): US OB BPP w non-stress Accession Number(s): [id number] cc: Mukul Foy D.O.; Ynes Rodriguez NP The [place] [address] Patient Name: VINNY DOWNEY MRN: [facility]:[id number] date: 2000 Sex: F Assigned Patient Location: [facility] Current Patient Location: Accession/Order Number: [id number] Exam Date: 05/21/2025 16:12 Report Date: 05/21/2025 19:56 At the request of: MUKUL FOY DO Procedure: US OB BPP w non-stress Ultrasound biophysical profile INDICATION: Gestational diabetes COMPARISON: 05/07/2025 FINDINGS/IMPRESSION:: Fetus cephalic position. 8/8 score biophysical profile. heart rate 139 beats per minutes. JAMAL 19.1 cm . Impression dictated by: Chevy Moreland M.D. 05/21/2025 7:56 PM Dictation Location: [place] [address] Electronically authenticated by: [id number] Y Date: 05/21/2025 19:56 Dictated By: Chevy Moreland M.D. Signed By: 05/21/251958 DD/ 55 TD/TT: Clarifier Operator Helper: DIANE HealthcareRadiology Study observation (narrative)NOMS HealthcareUS OB BPP W NON-STRESSOrdered By: Radiologist Radiology on 43-13-7632NSXF Healthcare Work Phone: Urinalysis macro (dipstick) panel [...] mg/dLNOMS HealthcareNOMS HealthcareUS OB BPP W NON-STRESSon 56-12-5750Gqh [place] [address] Ultrasound Report Signed Patient: VINNY DOWNEY MR#: [id number] : 2000 Acct:[id number] Age/Sex: 24 / F ADM Date: 04/30/25 Loc: Attending Dr: Mukul Foy D.O. Ordering Physician: Mukul Foy D.O. Date of Service: 04/30/25 Procedure(s): US OB BPP w non-stress Accession Number(s): [id number] cc: Mukul Foy D.O.; Ynes Rodriguez NETWORK SUPPORT TECHNICIAN The [address] [address] Patient Name: VINNY DOWNEY MRN: [id number] date: 2000 Sex: F Assigned Patient Location: [facility] Current Patient Location: Accession/Order Number: [id number] Exam Date: 04/30/2025 15:57 Report Date: 04/30/2025 22:59 At the request of: MUKUL FOY DO Procedure: US OB BPP w non-stress Ultrasound biophysical profile INDICATION: Gestational diabetes COMPARISON: 04/05/2025 FINDINGS/IMPRESSION:: Fetus cephalic position. 8/ score biophysical profile. heart rate 145 beats per minutes. JAMAL 12.7 cm. Impression dictated by: Chevy Moreland M.D. 04/30/2025 10:59 PM Dictation Location: [place] [address] Electronically authenticated by: [id number] Y Date: 04/30/2025 22:59 Dictated By: Chevy Moreland M.D. Signed By: 04/30/253 DD/ 58 TD/TT: Clarifier Operator Helper:MILYHRadiology, Radiologist, MD - 04/30/2025 [place] [address] Ultrasound Report Signed Patient: VINNY DOWNEY MR#: [id number] : 2000 Acct:[id number] Age/Sex: 24 / F ADM Date: 04/30/25 Loc: US Attending Dr: Mukul Foy D.O. Ordering Physician: Mukul Foy D.O. Date of Service: 04/30/25 Procedure(s): US OB BPP w non-stress Accession Number(s): [id number] cc: Mukul Foy D.O.; Ynes Rodriguez NP The [place] [address] Patient Name: VINNY DOWNEY MRN: [id number] date: 2000 Sex: F Assigned Patient Location: [facility] Current Patient Location: Accession/Order Number: [id number] Exam Date: 04/30/2025 15:57 Report Date: 04/30/2025 22:59 At the request of: MUKUL FOY DO Procedure: US OB BPP w non-stress Ultrasound biophysical profile INDICATION: Gestational diabetes COMPARISON: 04/05/2025 FINDINGS/IMPRESSION:: Fetus cephalic position. 8/8 score biophysical profile. heart rate 145 beats per minutes. JAMAL 12.7 cm. Impression dictated by: Chevy Moreland M.D. 04/30/2025 10:59 PM Dictation Location: [facility] Electronically authenticated by: [id number] Y Date: 04/30/2025 22:59 Dictated By: Chevy Moreland M.D. Signed By: 04/30/252301 DD/ 58 TD/TT: Clarifier Operator Helper: [facility] HealthcareRadiology Study observation (narrative)[facility] HealthcareUS OB BPP W NON-STRESSOrdered By: Radiologist Radiology on 28-75-7399DIOJFulton Medical Center- [facility] Work Phone: Urinalysis macro (dipstick) panel (U)on 04-30-2025 Bilirubin, UANegativeNegative - 4(70) +++ mg/dLNOMS HealthcareBlood, UANegative Negative - 50 Yunior/mcLNOMS HealthcareClarity, UAClearNOMS HealthcareColor, UA YellowNOMS HealthcareGlucose, UANegativeNegative - 1999(110) ++++ mg/dLNOOK HealthcareInterpretation and review of laboratory resultsAbnormalNOOK Healthcare Ketones, UANegativeNegative - 160(16) ++++ mg/dLNOOK HealthcareLeukocytes, UA1+ Negative - 500+++ Trip/mcLNOMS HealthcareNitrite, UANegativeNegative - Positive [facility] HealthcarepH, UA6.55 - 9NOMS HealthcareProtein, UANegativeNegative - 2000(20) ++++ mg/dLNOMS HealthcareSpec Grav, UA1.011 - 1.03N[facility] Healthcare Urobilinogen, UA2.00.2 - 12 mg/dLNOMS HealthcareNOMS HealthcareUrinalysis macro (dipstick) panel (U)on 40-86-5621Qeyikcakb, UANegativeNegative - 4(70) +++ mg/dL [facility] HealthcareBlood, UANegativeNegative - 50 Yunior/mcLNOMS HealthcareClarity, UA ClearNOMS HealthcareColor, UAYellowNOMS HealthcareGlucose, UANegativeNegative - 1999(110) ++++ mg/dLNOOK HealthcareInterpretation and review of laboratory resultsNormalNOOK HealthcareKetones, UANegativeNegative - 160(16) ++++ mg/dLNORusk Rehabilitation CenterLeukocytes, UANegativeNegative - 500+++ Trip/mcLNOOK Healthcare Nitrite, UANegativeNegative - PositiveNOOK HealthcarepH, UA6.55 - 9NOMS HealthcareProtein, UANegativeNegative - 2000(20) ++++ mg/dLNOOK HealthcareSpec Grav, UA1.0051 - 1.03NOMS HealthcareUrobilinogen, UA0.20.2 - 12 mg/dLNOSSM Health [facility] HealthcareALL CBC WITH AUTO DIFFon 83-33-2078GIYIOHNXJ ABSOLUTE TIKD5QZZQRusk Rehabilitation CenterBasophils/100 WBC (Bld)0.2 %0.2 - 2.0 %[facility] Eosinophils/100 WBC (Bld)1.1 %0.9 - 7.0 %[facility]- FultonErythrocyte distribution width (RBC) [Ratio]12.8 %11.0 - 15.0 %[facility]- FultonHematocrit (Bld) [Volume fraction]30.7 %Low36.0 - 48.0 %[facility]- FultonHemoglobin (Bld) [Mass/Vol]10.3 g/dLLow12.0 - 16.0 g/dLFulton Medical Center- FultonIMMATURE GRANULOCYTES ABS AUTO0.04HighNORusk Rehabilitation CenterImmature granulocytes/100 WBC (Bld)0.4 %0.0 - 0.5 %[facility] Interpretation and review of laboratory resultsAbnormSouthwood Psychiatric Hospital LYMPHOCYTES ABSOLUTE AUTO1.9NORusk Rehabilitation CenterLymphocytes/100 WBC (Bld)17.1 %Low 20.5 - 60.0 %Kindred HospitalH (RBC) [Entitic mass]29.7 pg26.7 - 34.0 pgKindred HospitalHC (RBC) [Mass/Vol]33.6 g/dL29.9 - 35.2 g/dLKindred HospitalV (RBC) [Entitic vol]88.5 fL81.0 - 99.0 fLFulton Medical Center- FultonMONOCYTES ABSOLUTE AUTO0.7NORusk Rehabilitation CenterMonocytes/100 WBC (Bld)6.5 %1.7 - 12.0 %NOMS HealthcareNEUTROPHILS ABSOLUTE AUTO8.2HighNOMS HealthcareNeutrophils/100 WBC (Bld)74.7 %43.0 - 75.0 % NOMS HealthcarePlatelet mean volume (Bld) [Entitic vol]8.7 fLLow9.5 - 13.5 fL NOMS HealthcareTBH EO #0.1NOMS HealthcareTBH TEC066ZXFP HealthcareTBH RBC3.47Low NOMS HealthcareTBH YRX74EJOF HealthcareCLINISYNCNOMS HealthcareUS OB GROWTHon 78-06-6927IicF[place], [place] [address] Ultrasound Report Signed Patient: VINNY DOWNEY MR#: [id number] : 2000 Acct:[id number] Age/Sex: 24 / F ADM Date: 04/05/25 Loc: US Attending Dr: Regina Barton Ordering Physician: Regina Barton Date of Service: 04/05/25 Procedure(s): US OB growth Accession Number(s): [id number] cc: Regina Barton; Physician,Non-Staff M.Chencho The [place] [address] Patient Name: VINNY DOWNEY MRN: [id number] date: 2000 Sex: F Assigned Patient Location: US Current Patient Location: LAB Accession/Order Number: [id number] Exam Date: 04/05/2025 10:00 Report Date: 04/05/2025 [...] Peraza M.D. 04/05/2025 12:08 PM Dictation Location[facility] Electronically authenticated by: [id number] Y Date: 04/05/2025 12:08 Dictated By: Daryn Peraza D.O. Signed By: 04/05/251210 DD/ 07 TD/TT: Clarifier Operator Helper:JAMILAHadiologvicki, Radiologist, - 04/05/2025 [place] [address] Ultrasound Report Signed Patient: VINNY DOWNEY MR#: [id number] : 2000 Acct:[id number] Age/Sex: 24 / F ADM Date: 04/05/25 Loc: US Attending Dr: Regina Barton Ordering Physician: Regina Barton Date of Service: 04/05/25 Procedure(s): US OB growth Accession Number(s): [id number] cc: Regina Barton; Physician,Non-Staff Khadar The [place] [address] Patient Name: VINNY DOWNEY MRN: [id number] date: 2000 Sex: F Assigned Patient Location: US Current Patient Location: LAB Accession/Order Number: [id number] Exam Date: 04/05/2025 10:00 Report Date: 04/05/2025 [...] Peraza M.D. 04/05/2025 12:08 PM Dictation Location: [place] [address] Electronically authenticated by: [id number] Y Date: 04/05/2025 12:08 Dictated By: Daryn Peraza D.O. Signed By: 04/05/251210 DD/ 1208 TD/TT: Clarifier Operator Helper: [facility] FultonRadiology Study observation (narrative)[facility] HOSPITALRenzo FletcherUS OB GROWTHOrdered By: Radiologist Radiology on 37-73-2635CLEU [facility] Work Phone: Urinalysis macro (dipstick) panel [...] mg/dLNOMS HealthcareNOMS HealthcareUrinalysis macro (dipstick) panel (U)on 46-53-4737Imbvrvczi, UANegativeNegative - 4(70) +++ mg/dL NOMS HealthcareBlood, [...] 1.011 - 1.03NOMS HealthcareUrobilinogen, UA1.00.2 - 12 mg/dLNOSSM Health [facility] HealthcareUrinalysis macro (dipstick) panel (U)on 24-96-1997Akpodimyk, UA NegativeNegative - 4(70) +++ mg/dLNOMS HealthcareBlood, UANegativeNegative - 50 Yunior/mcLNOOK HealthcareClarity, UAClearNOOK HealthcareColor, UAYellowNOOK HealthcareGlucose, UANegativeNegative - 2000(110) ++++ mg/dLLOGAN [facility] Healthcare Interpretation and review of laboratory resultsNormalNOOK HealthcareKetones, UA NegativeNegative - 160(16) ++++ mg/dLLOGAN REGIONAL HOSPITAL HealthcareLeukocytes, UANegative Negative - 500+++ Trip/mcLLOGAN REGIONAL HOSPITAL HealthcareNitrite, UANegativeNegative - Positive NOMS HealthcarepH, UA65 - 9NOMS HealthcareProtein, UANegativeNegative - 2000(20) ++++ mg/dLNOOK HealthcareSpec Grav, UA1.011 - 1.03NOOK HealthcareUrobilinogen, UA0.20.2 - 12 mg/dLNORusk Rehabilitation CenterNOOK HealthcareUS OB 14+ WEEKS ANATOMY SCANon 22-09-9442QO OB 14+ WEEKS ANATOMY SCANFINDINGS: A single, [...] 24, 2025. TRANSCRIBED BY: ELECTRONICALLY SIGNED BY: Franklin ToddNot AvailableComment on above:Order Comment: US OB ANATOMY SINGLE W US OB CERVICAL LENGTH Estimated Date of Delivery: 06/23/25 Gestational Age as of 01/15/2025: 51d2dYymjicwpxt macro (dipstick) panel (U)on 68-21-6818Toyroyzrm, UANegativeNegative - 4(70) +++ mg/dLNOMS HealthcareBlood, UANegativeNegative [...] - 12 mg/dLNOMS HealthcareNOMS HealthcareRECURRENT VAGINITIS (HTRX)on 52-74-8626SNHGRTJWO LOLLYCI0OLKC HealthcareATOPOBIUM VAGINAENot detectedNOMS HealthcareBVAB 2,3 (BACTERIAL VAGINOSIS ASSOCIATED BACTERIA 2, 3); MOBILUNCUS NMF4YWEX HealthcareBVAB 2,3 (BACTERIAL VAGINOSIS ASSOCIATED BACTERIA 2, 3); MOBILUNCUS SPPNot detectedNOMS HealthcareCANDIDA ALBICANS, PARAPSILOSIS, RLUPDCGVQZ0GVFB HealthcareCANDIDA ALBICANS, PARAPSILOSIS, TROPICALISNot detectedNOMS HealthcareCANDIDA GLABRATA0 NOMS HealthcareCANDIDA GLABRATANot detectedNOMS HealthcareCANDIDA LZXEWO9YRSS HealthcareCANDIDA KRUSEINot detectedNOMS HealthcareCHLAMYDIA FVXRESYUDRL8XGLV HealthcareCHLAMYDIA TRACHOMATISNot detectedNOMS HealthcareGARDNERELLA VAGINALIS0 NOMS HealthcareGARDNERELLA VAGINALISNot detectedNOMS HealthcareMEGASPHAERA (TYPES 1, 2)0NOMS HealthcareMEGASPHAERA (TYPES 1, 2)Not detectedNOMS Healthcare MYCOPLASMA NVIDRKEQCD2TAVW HealthcareMYCOPLASMA GENITALIUMNot detectedNOMS HealthcareNEISSERIA JMADIMIYECE1RPPG HealthcareNEISSERIA GONORRHOEAENot detected NOMS HealthcareTRICHOMONAS CBCNHSYSO5PRFF HealthcareTRICHOMONAS VAGINALISNot detectedNOMS HealthcareNOMS HealthcareCBCon 59-22-8652Sxptndblojf distribution width (RBC) [Ratio]12.6 %11.8 - 14.4 %[facility] HospitalHematocrit (Bld) [Volume fraction]35.4 %Low36.3 - 47.1 %[facility] HospitalHemoglobin (Bld) [Mass/Vol]11.7 g/dLLow11.9 - 15.1 g/dLBon The Christ HospitalInterpretation and review of laboratory resultsAbnormalRappahannock General Hospital (RBC) [Entitic mass]30 pg25.2 - 33.5 pgRiverside Regional Medical CenterHC (RBC) [Mass/Vol]33.1 g/dL 28.4 - 34.8 g/dLBon Georgetown Behavioral HospitalV (RBC) [Entitic vol]90.8 fL82.6 - 102.9 fLCentra Southside Community HospitalNucleated RBC/100 WBC (Bld) [Ratio]0 %0.0 per 100 WBCCentra Southside Community HospitalPlatelet mean volume (Bld) [Entitic vol]8.7 fL8.1 - 13.5 fLCentra Southside Community HospitalPlatelets (Bld) [#/Vol]316 10*3/uLBon The Christ HospitalRBC (Bld) [#/Vol]3.9 10*6/uLLow3.95 - 5.11 m/uLCentra Southside Community HospitalWBC other (Bld) [#/Vol]10.2Bon Land[facility]ungman Memorial HospitalErythrocyte distribution width (RBC) [Ratio]12.6 %Xgxwdk19.8-14.4[facility] GeneralComment on above:Performed By: #### GLUSC, CBC #### [facility] [address] [place] [place] [address] Spinning Lathe Operator Hydraulic: Yelena Greco MDHematocrit (Bld) [Volume fraction]35.4 %Low 36.3-47.1MCentervilleComment on above:Performed By: #### GLUSC, CBC #### [address] [place], [place] [address] Spinning Lathe Operator Hydraulic: Yelena Greco MDHemoglobin (Bld) [Mass/Vol]11.7 g/dLLow11.9-15.1 [facility] GeneralComment on above:Performed By: #### GLUSC, CBC #### [address] [place] [address] Spinning Lathe Operator Hydraulic: YULY ArandaCH (RBC) [Entitic mass]30.0 tpGxnsum58.2-33.5 [facility] GeneralComment on above:Performed By: #### GLUSILVINO, CBC #### [address] [place], [place] [address] Spinning Lathe Operator Hydraulic: TY ArandaC (RBC) [Mass/Vol]33.1 g/xVCpabmh16.4-34.8[facility] GeneralComment on above:Performed By: #### GLUSC, CBC #### [address] [place], [place] [address] Spinning Lathe Operator Hydraulic: YULY ArandaCV (RBC) [Entitic vol]90.8 eYZmlpzw43.6-102.9 [facility] GeneralComment on above:Performed By: #### GLUSC, CBC #### [address] [place] [address] Spinning Lathe Operator Hydraulic: Yelena Greco MDNRBC Automated0.0 per 100 WBCNormal0.0[facility] HospitalComment on above:Performed By: #### GLUSC, CBC #### [address] [place] [address] Spinning Lathe Operator Hydraulic: Yelena Sturtz, MDPlatelet mean volume (Bld) [Entitic vol]8.7 fL Normal8.1-13.5[facility] GeneralComment on above:Performed By: #### GLUSC, CBC #### [address] [place], [place] [address] Spinning Lathe Operator Hydraulic: ROLANDO Arandalatelets (Bld) [#/Vol]316 10*3/kJJayhap589-586 [facility] GeneralComment on above:Performed By: #### GLUSC, CBC #### [address] [place] [address] Spinning Lathe Operator Hydraulic: JO ANN ArandaBC (Bld) [#/Vol]3.90 10*6/uLLow3.95-5.11[facility] GeneralComment on above:Performed By: #### GLUSC, CBC #### [address] [place] [address] Spinning Lathe Operator Hydraulic: LANEY Aranda (Bld) [#/Vol]10.2 10*3/uLNormal3.5-11.3MCentervilleComment on above:Performed By: #### GLUSC, CBC #### [address] [place], [place] [address] Spinning Lathe Operator Hydraulic: Yelena Greco MDGlucose Challenge Gestationalon 30-27-5331ZMO ADMN GlucolaBon The Christ HospitalGlucose 1 Hr post 50 g glucose PO [Mass/Vol]184 mg/zZKzso58 - 135 mg/dLBon The Christ HospitalInterpretation and review of laboratory resultsAbnormalBon The Christ HospitalBon The [facility] Hospital Glucose Toya Scr 50gon 38-92-8614Zywwtfz [Mass/Vol]184 mg/gJIdcs85-559YejvmCleveland Clinic Akron GeneralComment on above:Performed By: #### GLUSC, CBC #### [address] [place], [place] [address] Spinning Lathe Operator Hydraulic: Yelena Greco MDGlu Administered viaGlucolaNormalMerSaint Francis Hospital & Medical CenterComment on above:Performed By: #### GLUSC, [facility] #### [facility] [address] [place] [address] Spinning Lathe Operator Hydraulic: Yelena Greco MDUS OB LESS THAN 14 WEEKS SINGLE OR FIRST GESTATION on 34-86-8144FZUMZDZXGQE: FIRST TRIMESTER OBSTETRIC ULTRASOUND 12/20/2024 TECHNIQUE: 1. [...] Noah Rivero MD 12/23/24 Final result [facility] FultonRadiology Study observation (narrative)[facility]- FultonUS OB LESS THAN 14 WEEKS SINGLE OR FIRST GESTATIONOrdered By: Radiologist Radiology on 21-51-2615VBGA FREEjit Work Phone: US OB LESS THAN 14 WEEKS SINGLE OR FIRST GESTATION W DOPPLERon 89-73-0325QY OB LESS THAN 14 WEEKS SINGLE OR [...] Signed by: Noah Rivero MD 12/23/24 Final resultNormalMerSaint Francis Hospital & Medical CenterUrinalysis macro (dipstick) panel (U)on 96-50-9184Oqsogmewd, UANegativeNegative - 4(70) +++ mg/dLNOMS HealthcareBlood, UAPositiveNegative - 50 Yunior/mcLNOMS HealthcareClarity, UAClearNOMS Healthcare Color, UAYellowNOMS HealthcareGlucose, UANegativeNegative - 2000(110) ++++ mg/dL [facility] HealthcareInterpretation and review of laboratory resultsAbnormalNOMS HealthcareKetones, UANegativeNegative - 160(16) ++++ mg/dLNOMS Healthcare Leukocytes, UANegativeNegative - 500+++ Trip/mcLNOMS HealthcareNitrite, UA NegativeNegative - PositiveNOMS HealthcarepH, UA75 - 9NOMS HealthcareProtein, UA NegativeNegative - 2000(20) ++++ mg/dLNOMS HealthcareSpec Grav, UA1.011 - 1.03 NOMS HealthcareUrobilinogen, UA1.00.2 - 12 mg/dLNOMS HealthcareNOMS Healthcare HCG ( test) Ql (U)on 75-43-9033Bjutuxtkwmvfef and review of laboratory resultsAbnormalNOMS HealthcarePreg Test, UrPositiveNegativeNOMS HealthcareNOMS HealthcareUS OB TRANSVAGINALon 49-85-0413IM OB TRANSVAGINALEXAM: US OB TRANSVAGINAL HISTORY: Dating. [...] II, MD, PHD at 15-Nov-2024 09:44:32 AM [facility] TeleradiologyNormalNot AvailableComment on above:Order Comment: US OB TRANSVAGINAL No LMP recorded.Urinalysis macro (dipstick) panel (U)on 89-82-9044Xjwnarwlz, UA NegativeNegative - 4(70) +++ mg/dLNOMS HealthcareBlood, UANegativeNegative - 50 Yunior/mcLNOMS HealthcareClarity, UAClearNOMS HealthcareColor, UAYellowNOMS HealthcareGlucose, UANegativeNegative - 1999(110) ++++ mg/dLNOMS Healthcare Interpretation and review of laboratory resultsNormalNOMS HealthcareKetones, UA NegativeNegative - 160(16) ++++ mg/dLNOMS HealthcareLeukocytes, UANegative Negative - 500+++ Trip/mcLNOMS HealthcareNitrite, UANegativeNegative - Positive NOMS HealthcarepH, UA6.55 - 9NOMS HealthcareProtein, UANegativeNegative - 1999(20) ++++ mg/dLNOMS HealthcareSpec Grav, UA1.0051 - 1.03NORusk [facility] Center Urobilinogen, UA0.20.2 - 12 mg/dLAtrium Health University CityIGP,APTIMA HPV,AGE GDLNon 10-87-2851RCM LN ACOG TESTINGNote.[facility] HealthcareComment on above:TESTS RESULT FLAG UNITS REF RANGE LAB Clinician Provided Cytology Information Source.............Cervix;Endocervix No. of containers..01 ThinPrep Vial Age Kelbyo ACOG Addie... FLAG LEGEND: L-Low Normal,H-High Normal,LL-Alert Low,HH-Alert High <-Panic Low,>-Panic High,A-Abnormal,AA-Critical Abnormal Performed at: 01 =G [facility] [address] Anastasiya Moses MD, IGP, RFX APTIMA HPV ASCUNote.[facility] HealthcareComment on above:TESTS RESULT FLAG UNITS REF RANGE LAB DIAGNOSIS: 02 NEGATIVE FOR INTRAEPITHELIAL LESION OR MALIGNANCY. Specimen adequacy: 02 Satisfactory for evaluation. Endocervical and/or squamous metaplastic cells (endocervical component) are present. Performed by: 02 Maico Galaviz, [employer] Trimmer ([facility]) . 02 Note: Note 02 [...] High,A-Abnormal,AA-Critical Abnormal Performed at: 02 [address] [facility] [address] [address] Anastasiya Moses MD, Performed at: =G - [facility] [address] [id number] Spinning Lathe Operator Hydraulic: Anastasiya Moses MD, Phone: [phone] Performed at: WB - [facility] [address] [id number] Spinning Lathe Operator Hydraulic: Anastasiya Moses MD, Phone: [phone] BRUSH-SPATULA CERVIX ENDOCERVIX CLINISYNCNOMS HealthcareComp Metabolic Profon 07-49-2299Kgyvays [Mass/Vol]4.6 g/dLNormal3.5-5.2[facility] ConnecticutComment on above:Performed By: #### CP #### [facility] [address] [place] [address] Spinning Lathe Operator Hydraulic: Yelena Greco MDAlbumin/Glob Ratio1.9Qwmpwn8.0-2.5[facility] GeneralComment on above:Performed By: #### CP #### [address] [place] [place] [address] Spinning Lathe Operator Hydraulic: Nas Aarndakaline Phos71 U/ZUhsgrv08-589Iryvw [facility]iffin HospitalComment on above:Performed By: #### CP #### [address] [place] [address] Spinning Lathe Operator Hydraulic: Yelena Greco MDALT [Catalytic activity/Vol]41 U/GIbzn88-61A[place]au [facility]iffin HospitalComment on above:Performed By: #### CP #### [address] [place] [address] Spinning Lathe Operator Hydraulic: Yelena Greco MDAnion gap [Moles/Vol]10 mmol/LNormal9-16[facility] GeneralComment on above:Performed By: #### CP #### [address] [place] [address] Spinning Lathe Operator Hydraulic: Yelena Greco MDAST [Catalytic activity/Vol]34 U/[id number] [facility] HospitalComment on above:Performed By: #### CP #### [facility] [address] [place] [address] [place] [address] Spinning Lathe Operator Hydraulic: Yelena Greco MDBilirubin [Mass/Vol]0.4 mg/dLNormal0.00-1.20[facility] GeneralComment on above:Performed By: #### CP #### [address] [place] [place] [address] Spinning Lathe Operator Hydraulic: Yelena Greco MDBUN/CRE Tgqxs07Hacx0-31[facility] Comment on above:Performed By: #### CP #### [address] [place], [place] [id number] Spinning Lathe Operator Hydraulic: NATALIO Arandaalcium [Mass/Vol]9.4 mg/dLNormal8.6-10.4[facility] GeneralComment on above:Performed By: #### CP #### [address] [place] [address] [place] [address] Spinning Lathe Operator Hydraulic: NATALIO Arandahloride [Moles/Vol]103 mmol/QSioize50-049Chhud [facility] HospitalComment on above:Performed By: #### CP #### [address] [place], [place] [id number] Spinning Lathe Operator Hydraulic: Yelena Greco MDCO2 [Moles/Vol]25 mmol/IKakare87-63YlwyyCleveland Clinic Akron GeneralComment on above:Performed By: #### CP #### [address] [place] [place] [address] Spinning Lathe Operator Hydraulic: NATALIO Arandareatinine [Mass/Vol]0.6 mg/dLNormal0.50-0.90[facility] GeneralComment on above:Performed By: #### CP #### [address] [place], [place] [id number] Spinning Lathe Operator Hydraulic: Yelena Greco MDGFR/1.73 sq M.predicted among non-blacks MDRD (S/P/Bld) [Vol rate/Area]mL/min/{1.73_m2}Normal>60[facility] GeneralComment on above:Result Comment: These results are not [...] renal tubular secretion.Performed By: #### CP #### [facility] [address] [place] [address] [place] [address] Spinning Lathe Operator Hydraulic: Yelena Greco MDGlucose [Mass/Vol]83 mg/eLKanaya93-93Rgkig [facility] Hospital Of Central ConnecticutComment on above:Performed By: #### CP #### [address] [place], [place] 1081183 Spinning Lathe Operator Hydraulic: Yelena Greco MDPotassium [Moles/Vol]4.6 mmol/LNormal3.7-5.3MThe [facility] of [facility] Center HospitalComment on above:Performed By: #### CP #### [address] [place], [place] [phone] Spinning Lathe Operator Hydraulic: Yelena Greco MDProtein [Mass/Vol]7.8 g/dLNormal6.6-8.7[facility] HospitalComment on above:Performed By: #### CP #### [address] [place], [place] 6572583 Spinning Lathe Operator Hydraulic: Yelena Greco MDSodium [Moles/Vol]138 mmol/XWkftxe571-342Nqbyt [facility] HospitalComment on above:Performed By: #### CP #### [address] [place], [place] 2365783 Spinning Lathe Operator Hydraulic: Yelena Greco MDUrea nitrogen [Mass/Vol]13 mg/dLNormal6-20[facility] HospitalComment on above:Performed By: #### CP #### [address] [place], [place] 6113683 Spinning Lathe Operator Hydraulic: NATALIO Arandaomprehensive Metabolic Panelon [id number] [Mass/Vol]4.6 g/dL3.5 - 5.2 g/dLBon The Christ HospitalAlbumin/Globulin [Mass ratio]1.5 {ratio}1.0 - 2.5Bon [facility] HospitalALP [Catalytic activity/Vol]71 U/L35 - 104 U/LBon Secours Mercy HealthALT [Catalytic activity/Vol]41 U/LHigh10 - 35 U/LBon [facility]ours [facility] Rehabilitation HospitalAnion gap [Moles/Vol]10 mmol/L9 - 16 mmol/LBon Secours [facility] Administrationy HealthAST [Catalytic activity/Vol]34 U/L10 - 35 U/LBon [facility] HealthBilirubin [Mass/Vol]0.4 mg/dL0.00 - 1.20 mg/dLBon [facility] HealthCalcium [Mass/Vol]9.4 mg/dL8.6 - 10.4 mg/dLBon Secours [facility] Health Chloride [Moles/Vol]103 mmol/L98 - 107 mmol/LBon Secours [facility] Administrationy HealthCO2 [Moles/Vol]25 mmol/L20 - 31 mmol/LBon Secours [facility] HealthCreatinine [Mass/Vol] 0.6 mg/dL0.50 - 0.90 mg/dLBon [facility]Po[facility] HealthEst, Glom Filt Rate- PINFBon The Christ HospitalComment on above: These results are not [...] secretion. Glucose [Mass/Vol]83 mg/dL74 - 99 mg/dLBon The Christ HospitalInterpretation and review of laboratory resultsAbnormalBon [facility] HealthPotassium [Moles/Vol]4.6 mmol/L3.7 - 5.3 mmol/LBon [facility]Po[facility] HealthProtein [Mass/Vol] 7.8 g/dL6.6 - 8.7 g/dLBon Secours [facility] Rehabilitation HospitalSodium [Moles/Vol]138 mmol/L136 - 145 mmol/LBon [facility]Po[facility] HealthUrea nitrogen [Mass/Vol]13 mg/dL6 - 20 mg/dL Bon [facility] HealthUrea nitrogen/Creatinine [Mass ratio]22 mg/mgHigh9 - 20 Bon [facility] HealthBon Sec[facility] HealthLipid Panelon 10-28-2024 Cholesterol [Mass/Vol]152 mg/dL0 - 199 mg/dLBon [facility] HospitalComment on above: Cholesterol Guidelines: <200 Desirable 200-240 Borderline >240 Undesirable Cholesterol in HDL [Mass/Vol]33 mg/dLLow40 - PINF mg/dLBon [facility] Comment on above: HDL Guidelines: <40 Undesirable 40-59 Borderline >59 Desirable Cholesterol in LDL [Mass/Vol]88 mg/dL0 - 100 mg/dLBon [facility] Comment on above: LDL Guidelines: <100 Desirable 100-129 Near to/above Desirable 130-159 Borderline >159 Undesirable Direct (measured) LDL and calculated LDL are not interchangeable tests. Cholesterol in VLDL [Mass/Vol]31 mg/dLBon [facility] [employer] Cholesterol.total/Cholesterol in HDL [Mass ratio]5.0 {ratio}[facility] [employer]Interpretation and review of laboratory resultsAbnormalMary Washington Healthcare [employer]Triglyceride [Mass/Vol]156 mg/dLHighNINF - 150 mg/dLBon The [facility] HospitalComment on above: Triglyceride Guidelines: <150 Desirable 150-199 Borderline 200-499 High >499 Very high Based on AHA Guidelines for fasting triglyceride, April 2012. [facility] Apply Financials LimitedBon Secours St. Francis Medical CenterLipid Profileon 73-89-0300Rqsemmnbpne [Mass/Vol]152 mg/dLNormal0-199[facility] GeneralComment on above:Result Comment: Cholesterol Guidelines: <200 Desirable 200-240 Borderline >240 UndesirablePerformed By: #### LIPR #### [employer] [address] [place], [place] [id number] Spinning Lathe Operator Hydraulic: NATALIO Tavarezholesterol in HDL [Mass/Vol]33 mg/dLLow>40[facility] GeneralComment on above:Result Comment: HDL Guidelines: <40 Undesirable 40-59 Borderline >59 DesirablePerformed By: #### LIPR #### [employer] [address] [place], [place] [id number] Spinning Lathe Operator Hydraulic: NATALIO Tavarezholesterol in LDL [Mass/Vol]88 mg/dLNormal0-100 [facility] GeneralComuniversity of michigan health on above:Result Comment: LDL Guidelines: <100 Desirable 100-129 Near to/above Desirable 130-159 Borderline >159 Undesirable Direct (measured) LDL and calculated LDL are not interchangeable tests.Performed By: #### LIPR #### [employer] [address] [place] [address] Spinning Lathe Operator Hydraulic: NATALIO Tavarezholesterol in VLDL [Mass/Vol]31 mg/dLNormal [facility] GeneralComment on above:Performed By: #### LIPR #### [employer] [address] [place] [address] Spinning Lathe Operator Hydraulic: NATALIO Tavarezholesterol.total/Cholesterol in HDL [Mass ratio]5.0 {ratio}NormalCleveland Clinic Akron GeneralComment on above:Performed By: #### LIPR #### [employer] [address] [place] [address] Spinning Lathe Operator Hydraulic: Osvaldo Santamaria MDTriglyceride [Mass/Vol]156 mg/dLHigh<150[facility] GeneralComment on above:Result Comment: Triglyceride Guidelines: <150 Desirable 150-199 Borderline 200-499 High >499 Very high Based on AHA Guidelines for fasting triglyceride, April 2012.Performed By: #### LIPR #### [facility] [address] [place] [address] Spinning Lathe Operator Hydraulic: Osvaldo Santamaria MDUS GALLBLADDER RUQon [id number] GALLBLADDER RUQEXAMINATION: RIGHT UPPER QUADRANT ULTRASOUND 03/06/2024 9:58 am COMPARISON: None. HISTORY: ORDERING SYSTEM PROVIDED HISTORY: Elevated liver enzymes TECHNOLOGIST PROVIDED HISTORY: This procedure can be scheduled via [employer]. elevated liver enzymes, fam hx gallbladder disease. [...] Signed by: Hernandez Stewart MD 03/06/24 Final resultNormalAdams County Hospital 87-31-6266Qrtbemrbelo distribution width (RBC) [Ratio]12.4 %Hrhyeg55.8-14.4[facility] GeneralComment on above: Performed By: #### FEBC #### [address] [address] Spinning Lathe Operator Hydraulic: Osvaldo Santamaria MD #### CBC, CP #### [address] [place] [address] Spinning Lathe Operator Hydraulic: Yelena Greco MDHematocrit (Bld) [Volume fraction]40.2 %Normal 36.3-47.1MCentervilleComment on above:Performed By: #### FEBC #### [address] [address] Spinning Lathe Operator Hydraulic: Osvaldo Santamaria MD #### CBC, CP #### [address] [place] [address] Spinning Lathe Operator Hydraulic: Yelena Greco MDHemoglobin (Bld) [Mass/Vol]13.5 g/dLNormal 11.9-15.1MCentervilleComment on above:Performed By: #### FEBC #### [address] [address] Spinning Lathe Operator Hydraulic: Osvaldo Santamaria MD #### CBC, CP #### [address] [place] [address] Spinning Lathe Operator Hydraulic: YULY ArandaCH (RBC) [Entitic mass]29.8 ojWycnul35.2-33.5 [facility] GeneralComment on above:Performed By: #### FEBC #### [address] [address] Spinning Lathe Operator Hydraulic: Osvaldo Santamaria MD #### CBC, CP #### [address] [place] [address] Spinning Lathe Operator Hydraulic: YULY ArandaCHC (RBC) [Mass/Vol]33.6 g/qDXypzcc26.4-34.8[facility] GeneralComment on above:Performed By: #### FEBC #### [address] [id number] Spinning Lathe Operator Hydraulic: Osvaldo Santamaria MD #### CBC, CP #### [address] [place] [address]1283 Spinning Lathe Operator Hydraulic: YULY ArandaCV (RBC) [Entitic vol]88.7 jIJwcgmz73.6-102.9 [facility] GeneralComment on above:Performed By: #### FEBC #### [address] [address] Spinning Lathe Operator Hydraulic: Osvaldo Santamaria MD #### CBC, CP #### [address] [place] 1871283 Spinning Lathe Operator Hydraulic: Yelena Greco MDNRBC Automated0.0 per 100 WBCNormal0.0[facility] GeneralComment on above:Performed By: #### FEBC #### [place] [address] Spinning Lathe Operator Hydraulic: Osvaldo Santamaria MD #### CBC, CP #### [address] [place] 1871283 Spinning Lathe Operator Hydraulic: ROLANDO Arandalatelet mean volume (Bld) [Entitic vol]8.5 fL Normal8.1-13.5[facility] GeneralComment on above:Performed By: #### FEBC #### [address] [address] Spinning Lathe Operator Hydraulic: Osvaldo Santamaria MD #### CBC, CP #### [address] [place], [place] 0230683 Spinning Lathe Operator Hydraulic: Richie Aranda ([facility]) [#/Vol]309 10*3/eTXbhanp164-464 [facility] HospitalComment on above:Performed By: #### FEBC #### [address] [address] Spinning Lathe Operator Hydraulic: Osvaldo Santamaria MD #### CBC, CP #### [address] [place] [address] Spinning Lathe Operator Hydraulic: BILL Aranda ([facility]) [#/Vol]4.53 10*6/uLNormal3.95-5.11[facility] HospitalComment on above:Performed By: #### FEBC #### [address] [address] Spinning Lathe Operator Hydraulic: Osvaldo Santamaria MD #### CBC, CP #### [address] [place] [phone] Spinning Lathe Operator Hydraulic: JOSELITO ArandaBC ([facility]) [#/Vol]6.5 10*3/uLNormal3.5-11.3MThe [facility] of [facility] HospitalComment on above:Performed By: #### FEBC #### [address] [address] Spinning Lathe Operator Hydraulic: Osvaldo Santamaria MD #### CBC, CP #### [address] [place] [address] Spinning Lathe Operator Hydraulic: NATALIO Arandautah valley hospital Metabolic Profon 58-40-4060Mjpzoow [Mass/Vol] 4.5 g/dLNormal3.5-5.2MThe [facility] of [facility] HospitalComment on above:Performed By: #### FEBC #### [address] [address] Spinning Lathe Operator Hydraulic: Osvaldo Santamaria MD #### CBC, CP #### [address] [place], [place] 2332983 Spinning Lathe Operator Hydraulic: Yelena Greco MDAlbumin/Glob Ratio1.5Qwgjws4.0-2.5[facility] GeneralComment on above:Performed By: #### FEBC #### [address] [address] Spinning Lathe Operator Hydraulic: Osvaldo Santamaria MD #### CBC, CP #### [address] [place], [place] 0165583 Spinning Lathe Operator Hydraulic: Giselle Aranda Phos74 U/PPqquzc38-977RjezuCleveland Clinic Akron GeneralComment on above:Performed By: #### FEBC #### [address] [address] Spinning Lathe Operator Hydraulic: Osvaldo Santamaria MD #### CBC, CP #### [address] [place], [facility]83 Spinning Lathe Operator Hydraulic: AMRITA Aranda [Catalytic activity/Vol]61 U/LHigh5-33[facility] GeneralComment on above:Performed By: #### FEBC #### [address] [address] Spinning Lathe Operator Hydraulic: Osvaldo Santamaria MD #### CBC, CP #### [address] [place] [place] [address] Spinning Lathe Operator Hydraulic: Lindsay Aranda gap [Moles/Vol]8 mmol/LLow9-17[facility] GeneralComment on above:Performed By: #### FEBC #### [address] [address] Spinning Lathe Operator Hydraulic: Osvaldo Santamaria MD #### CBC, CP #### [address] [place] [address] Spinning Lathe Operator Hydraulic: Yelena Greco MDAST [Catalytic activity/Vol]43 U/LHigh<32[facility] GeneralComment on above:Performed By: #### FEBC #### [place] [address] [place] [address] Spinning Lathe Operator Hydraulic: Osvaldo Santamaria MD #### CBC, CP #### [address] [place] [place] [address] Spinning Lathe Operator Hydraulic: Yelena Greco MDBilirubin [Mass/Vol]0.2 mg/dLLow0.3-1.2MCentervilleComment on above:Performed By: #### FEBC #### [address] [address] Spinning Lathe Operator Hydraulic: Osvaldo Santamaria MD #### CBC, CP #### [address] [place] [address] Spinning Lathe Operator Hydraulic: Yelena Greco MDBUN/CRE Bqpxm24Agpmcg5-59Mtkib [facility] Comment on above:Performed By: #### FEBC #### [address] [address] Spinning Lathe Operator Hydraulic: Osvaldo Santamaria MD #### CBC, CP #### [address] [place] [place] [address] Spinning Lathe Operator Hydraulic: NATALIO Arandaalcium [Mass/Vol]9.4 mg/dLNormal8.6-10.4[facility] GeneralComment on above:Performed By: #### FEBC #### [address] [address] Spinning Lathe Operator Hydraulic: Osvaldo Santamaria MD #### CBC, CP #### [address] [place], [place] 8956183 Spinning Lathe Operator Hydraulic: NATALIO Arandahloride [Moles/Vol]100 mmol/GOubjoc64-782UcskxCleveland Clinic Akron GeneralComment on above:Performed By: #### FEBC #### [place] [address] [place] [address] Spinning Lathe Operator Hydraulic: Osvaldo Santamaria MD #### CBC, CP #### [address] [place] 8286383 Spinning Lathe Operator Hydraulic: Yelena Greco MDCO2 [Moles/Vol]28 mmol/KPsxnaa78-51DyjjqCleveland Clinic Akron GeneralComment on above:Performed By: #### FEBC #### [facility] [place] [address] Spinning Lathe Operator Hydraulic: Osvaldo Santamaria MD #### CBC, CP #### [address] [place] 1871283 Spinning Lathe Operator Hydraulic: NATALIO Arandareatinine [Mass/Vol]0.6 mg/dLNormal0.5-0.9[facility] GeneralComment on above:Performed By: #### FEBC #### [address] [address] Spinning Lathe Operator Hydraulic: Osvaldo Santamaria MD #### CBC, CP #### [address] [place] 1871283 Spinning Lathe Operator Hydraulic: Yelena Greco MDGFR/1.73 sq M.predicted among non-blacks MDRD (S/P/Bld) [Vol rate/Area]mL/min/{1.73_m2}Normal>60[facility] GeneralComment on above:Result Comment: These results are not [...] renal tubular secretion.Performed By: #### FEBC #### [address] [address] Spinning Lathe Operator Hydraulic: Osvaldo Santamaria MD #### CBC, CP #### [address] [place], [place] 8338983 Spinning Lathe Operator Hydraulic: Yelena Greco MDGlucose [Mass/Vol]91 mg/wTGnicqa60-59Nksdj [facility] HospitalComment on above:Performed By: #### FEBC #### [address] [address] Spinning Lathe Operator Hydraulic: Osvaldo Santamaria MD #### JERAMIE, CP #### [address] [place], [place] 6980383 Spinning Lathe Operator Hydraulic: ROLANDO Arandaotassium [Moles/Vol]4.2 mmol/LNormal3.7-5.3[facility] HospitalComment on above:Performed By: #### FEBC #### [address] [address] Spinning Lathe Operator Hydraulic: Osvaldo Santamaria MD #### CBC, CP #### [address] [place], [place] 5843483 Spinning Lathe Operator Hydraulic: Yelena Greco MDProtein [Mass/Vol]7.6 g/dLNormal6.4-8.3Mselect medical specialty hospital - akrony [place] HospitalComment on above:Performed By: #### FEBC #### [address] [address] Spinning Lathe Operator Hydraulic: Osvaldo Santamaria MD #### CBC, CP #### [address] [place], [place] 2546883 Spinning Lathe Operator Hydraulic: Yelena Greco MDSodium [Moles/Vol]136 mmol/SPfouqi322-155Wtckr [facility] HospitalComment on above:Performed By: #### FEBC #### [address] [address] Spinning Lathe Operator Hydraulic: Osvaldo Santamaria MD #### CBC, CP #### [address] [place], [place] 1734083 Spinning Lathe Operator Hydraulic: Yelena Greco MDUrea nitrogen [Mass/Vol]12 mg/dLNormal6-20[facility] HospitalComment on above:Performed By: #### FEBC #### [address] [address] Spinning Lathe Operator Hydraulic: Osvaldo Santamaria MD #### CBC, CP #### [address] [place] 1871283 Spinning Lathe Operator Hydraulic: Yelena Greco MDIron Binding Cap.on 02-16-2024% Fe Wqmzlvbpmt33 % Vaidxt37-76Rtbip [facility] HospitalComment on above:Performed By: #### FEBC #### [address] [address] Spinning Lathe Operator Hydraulic: Osvaldo Santamaria MD #### CBC, CP #### [address] [place] 1871283 Spinning Lathe Operator Hydraulic: Yelena Greco MDIron [Mass/Vol]92 ug/wXYxnkph47-866Agmka [facility] Of Central ConnecticutComment on above:Performed By: #### FEBC #### [address] [address] Spinning Lathe Operator Hydraulic: Osvaldo Santamaria MD #### CBC, CP #### [address] [place] [address] Spinning Lathe Operator Hydraulic: Yelena Greco MDTokarlos Fe Binding Xws681 ug/jQXmiikb967-787Uktbv [facility] HospitalComment on above:Performed By: #### FEBC #### [address] [address] Spinning Lathe Operator Hydraulic: Osvaldo Santamaria MD #### CBC, CP #### [facility] [address] [place], [place] 7256683 Spinning Lathe Operator Hydraulic: Yelena Greco MDUnbound Fe Bind Qyu092 ug/nRGwzgii313-243MrcboCherrington Hospitalment on above:Performed By: #### FEBC #### [address] [address] Spinning Lathe Operator Hydraulic: Osvaldo Santamaria MD #### CBC, CP #### [facility] [address] [place] [address] Spinning Lathe Operator Hydraulic: Yelena Greco MDLipid Profileon 59-24-0817Ceuogttltzf [Mass/Vol] 245 mg/dLHigh0-199[facility] GeneralComment on above:Result Comment: Cholesterol Guidelines: <200 Desirable 200-240 Borderline >240 UndesirablePerformed By: #### LIPR #### [address] [address] Spinning Lathe Operator Hydraulic: Osvaldo Santamaria, MDCholesterol in HDL [Mass/Vol]34 mg/dLLow>40[facility] on above:Result Comment: HDL Guidelines: <40 Undesirable 40-59 Borderline >59 DesirablePerformed By: #### LIPR #### [address] [address] Spinning Lathe Operator Hydraulic: Osvaldo Santamaria MDCholesterol in LDL [Mass/Vol]159 mg/dLHigh0-100 Cherrington Hospitalment on above:Result Comment: LDL Guidelines: <100 Desirable 100-129 Near to/above Desirable 130-159 Borderline >159 Undesirable Direct (measured) LDL and calculated LDL are not interchangeable tests.Performed By: #### LIPR #### [address] [address] Spinning Lathe Operator Hydraulic: Osvaldo Santamaria MDCholesterol in VLDL [Mass/Vol]52 mg/dLNormal [facility] GeneralComment on above:Performed By: #### LIPR #### [facility] [address] [place] [address] Spinning Lathe Operator Hydraulic: NATALIO Tavarezholesterol.total/Cholesterol in HDL [Mass ratio]7.0 {ratio}NormalCleveland Clinic Akron GeneralComment on above:Performed By: #### LIPR #### [facility] [address] [place] [address] Spinning Lathe Operator Hydraulic: Osvaldo Santamaria MDTriglyceride [Mass/Vol]259 mg/dLHigh<150[facility] HospitalComment on above:Result Comment: Triglyceride Guidelines: <150 Desirable 150-199 Borderline 200-499 High >499 Very high Based on AHA Guidelines for fasting triglyceride, April 2012.Performed By: #### LIPR #### [facility] [address] [place] [address] Spinning Lathe Operator Hydraulic: Osvaldo Santamaria MDOffice Visiton [id number]-up visit [id number] Vinny Downey 2000 F Date Provider Department Center 07/11/2023 RAJENDRA GUNN SAMSON [facility] Family History Problem Relation Age of Onset Anemia Mother Supraventricular tachycardia Father Hyperlipidemia Father Diabetes Sister Family Status - Relation Status Age at Mother Father Sister Level of Service:[address]452 [place] OFFICE/OUTPATIENT NEW MODERATE MDM 45 MINUTESNoOhioHealth Grady Memorial HospitalOffice Visiton [id number]-up visit [phone] Vinny Downey 2000 F Date Provider Department Center 03/20/2023 ISRAEL ULLOA SAMSON [facility] Family History Problem Relation Age of Onset Anemia Mother Supraventricular tachycardia Father Hyperlipidemia Father Diabetes Sister Family Status - Relation Status Age at Mother Father Sister Level of Service:03976 [place] OFFICE/OUTPATIENT NEW LOW MDM 30-44 MINUTESNoOhioHealth Grady Memorial HospitalUS PREG BIOPHY W NON STRESSon [id number] PREG BIOPHY W NON STRESSEXAMINATION: US PREG [...] Electronically authenticated by: YELENA CARLOS Date: 2022-12-20 07:03NoAs[facility] PREG PLACENTAon [id number] PREG PLACENTAEXAMINATION: US PREG PLACENTA HISTORY: Left [...] authenticated by: LUIS ALFREDO GRANT Date: 2022-12-12 14:56NoAs[facility]abula [facility] Center PREG BIOPHY W NON STRESSon 40-12-4638CJ PREG BIOPHY W NON STRESSEXAMINATION: US PREG [...] authenticated by: LUIS ALFREDO GRANT Date: 2022-12-11 04:08NoAshtabula [facility] Center PREG GROWTHon [id number] PREG GROWTHEXAMINATION: US PREG GROWTH HISTORY: High [...] authenticated by: LUIS ALFREDO GRANT Date: 2022-12-11 04:06[facility] HospitalGTT 3 HR PREGon 14-82-9781Kwjvdbl [Mass/Vol]98 mg/dLNormal 74-106Met[facility] Parma Medical CenterComment on above:Performed By: #### GTT3P #### [facility] [address] [place] [address] Dr. Emilee SpringerGlucose [Mass/Vol]170 mg/dLFort Hamilton HospitalComment on above:Performed By: #### GTT3P #### [facility] [address] [place] [address] Dr. Emilee SpringerGlucose [Mass/Vol]201 mg/dLFort Hamilton HospitalComuniversity of michigan health on above:Performed By: #### GTT3P #### [facility] [address] [place] [address] Dr. Emilee SpringerGlucose [Mass/Vol]115 mg/dLFort Hamilton HospitalComment on above:Performed By: #### GTT3P #### [facility] [address] [place] [address] Dr. Emilee Mcconnell PREG INCOMPLETE ANATOMYon [id number] PREG INCOMPLETE ANATOMY EXAM: US PREG INCOMPLETE ANATOMY HISTORY: screening COMPARISON: 09/10/2022 TECHNIQUE: Transabdominal FINDINGS: position: Transverse, head to the maternal right Heart rate: 157 bpm Normal observed anatomy: Nose/lips, four-chamber heart, left ventricular outflow tract, right ventricular outflow tract, spine IMPRESSION: Normal observed anatomy Electronically authenticated by: YELENA CARLOS Date: 2022-10-16 08:44NormalThe [facility] AUTO DIFFon 25-55-0775GJUU #0.0 103/ulNormal0.0-0.1The Genesis HospitalComment on above:Performed By: #### CBC #### [facility] [address] [place] [address] Dr. Emilee SpringerBasophils/100 WBC (Bld)0.2 %Normal0.2-2.0[facility] Comment on above:Performed By: #### CBC #### [facility] [address] [place] [address] Dr. Emilee Weldon #0.1 103/ulNormal0.0-0.7The Genesis HospitalComment on above: Performed By: #### CBC #### [facility] [address] [place] [address] Dr. Emilee Cintronosinophils/100 WBC (Bld)0.8 %Critically low0.9-7.0The Genesis HospitalComment on above:Performed By: #### CBC #### [facility] [address] [place] [address] Dr. Emilee Cintronrythrocyte distribution width (RBC) [Ratio]12.5 %Tagaxu98.0-15.0 The Genesis HospitalComment on above:Performed By: #### CBC #### [facility] [address] [place] [address] Dr. Emilee SpringerHematocrit (Bld) [Volume fraction]29.8 %Critically low36.0-48.0 The Genesis HospitalComment on above:Performed By: #### CBC #### [facility] [address] [place] [address] Dr. Emilee SpringerHemoglobin (Bld) [Mass/Vol]10.0 g/dLCritically low12.0-16.0The Genesis HospitalComment on above:Performed By: #### CBC #### [facility] [address] [place] [address] Dr. Emilee Van #0.05 10e3/ulCritically high0.00-0.03[facility] Comment on above:Performed By: #### CBC #### [facility] [address] [place] [address] Dr. Emilee Van %0.5 %Normal0.0-0.5The Genesis HospitalComment on above: Performed By: #### CBC #### [facility] [address] [place] [address] Dr. Emilee Renae #1.6 103/ulNormal1.2-3.8The Genesis HospitalComment on above:Performed By: #### CBC #### [facility] [address] [place] [address] Dr. Emilee Danielhocytes/100 WBC (Bld)15.3 %Critically low20.5-60.0The Genesis HospitalComment on above:Performed By: #### CBC #### [facility] [address] [place] [address] Dr. Emilee Esquivel DIFF REQNONormalThe Genesis HospitalComment on above: Performed By: #### CBC #### [facility] [address] [place] [address] Dr. Emilee Hannah (RBC) [Entitic mass]30.2 jbDgwuli12.7-34.0The Genesis HospitalComment on above:Performed By: #### CBC #### [facility] [address] [place] [address] Dr. Emilee Guevara (RBC) [Mass/Vol]33.6 g/qMNttbmr88.9-35.2The Genesis HospitalComment on above:Performed By: #### CBC #### [facility] [address] [place] [address] Dr. Emilee Guevara (RBC) [Entitic vol]90.0 hRBwroxr66.0-99.0The Genesis HospitalComment on above:Performed By: #### CBC #### [facility] [address] [place] [address] Dr. Emilee Banegas #0.6 103/ulNormal0.3-0.8The Genesis HospitalComment on above:Performed By: #### CBC #### [facility] [address] [place] [address] Dr. Emilee Hightowerocytes/100 WBC (Bld)5.8 %Normal1.7-12.0[facility] Comment on above:Performed By: #### CBC #### [facility] [address] [place] [address] Dr. Emilee Fernandez #8.2 103/ulCritically high1.4-6.5[facility] Comment on above:Performed By: #### CBC #### [facility] [address] [place] [address] Dr. Emilee Meeksutrophils/100 WBC (Bld)77.4 %Critically high43.0-75.0The Genesis HospitalComment on above:Performed By: #### CBC #### [facility] [address] [place] [address] Dr. Emilee Barth mean volume (Bld) [Entitic vol]8.5 fLCritically low 9.5-13.5The Genesis HospitalComment on above:Performed By: #### CBC #### [facility] [address] [place] [address] Dr. Emilee SpringerPLT347 103/qzVautgu460-977Tsf Genesis HospitalComment on above: Performed By: #### CBC #### [facility] [address] [place] [address] Dr. Emilee SpringerRBC3.31 106/ulCritically low4.20-5.40The Genesis HospitalComment on above:Performed By: #### CBC #### [facility] [address] [place] [address] Dr. Emilee SpringerWBC10.6 103/ulNormal4.0-11.0The Genesis HospitalComment on above:Performed By: #### CBC #### [facility] [address] [place] [address] Dr. Emilee SpringerGLUCOSE - 1HRon 94-39-7886Oatqben [Mass/Vol]176 mg/dLCritically vtyv68-240Qyz Genesis HospitalComment on above:Performed By: #### GLU1HR #### [facility] [address] [place] [address] Dr. Emilee SpringerCHLAMYDIA/GONOCOCCUS ANIAS (SWAB/URINE/PAPon 97-59-9460Kmhqfjngf trachomatis, NAANegativeNormalNegativeThe Genesis HospitalComment on above: Performed By: #### CBC #### [facility] [address] [place] [address] Dr. Emilee SpringerNeisseria gonorrhoeae, NAANegativeNormalNegativeMetrohealth Parma Medical CenterComment on above:Performed By: #### CBC #### [facility] [address] [place] [address] Dr. Emilee SpringerVAGINITIS/VAGINOSIS DNA PROBEon 57-30-2698[place] speciesNegative NormalNegativeThe Genesis HospitalComment on above:Performed By: #### CBC #### [facility] [address] [place] [address] Dr. Emilee SpringerGardnerella vaginalisNegativeNormmtNegativeMet[facility]health [facility] Comment on above:Performed By: #### CBC #### [facility] [address] [place] [address] Dr. Emilee SpringerTrichomonas vaginalisNegativeNormalNegativeMet[facility]health [facility] Comment on above:Performed By: #### CBC #### [facility] [address] [place] [address] Dr. Emilee Mcconnell PREG ANATOMY SINGLEon 68-00-0480MV PREG ANATOMY SINGLE EXAMINATION: US PREG ANATOMY [...] authenticated by: LUIS ALFREDO GRANT Date: 2022-09-13 16:57[facility] HospitalAFP MATERNAL FOR SPINA BIFIDAon 77-60-3369NBP MoM0.42[facility] HospitalComment on above:Performed By: #### AFPMAT #### [facility] [address] [address] [address] Emilee Yoder Value16.7 ng/mLNKettering Health Behavioral Medical CenterComment on above: Performed By: #### AFPMAT #### [facility] [address] [address] [address] Emilee Yoder, Serum for Spina BifidaReportFort [facility] Hospital Comment on above:Performed By: #### AFPMAT #### [facility] [address] [id number] Emilee BaUC Medical CenterComment on above:Result Comment: Pam Machado, Ph.D., [facility] Director . References: Available Upon Request. . Multiples Of Median Cutoffs For AFP Elevations Berkowitz 2.5 Black 2.8 IDD 2.0 Twins 4.5 Abbreviation Definitions IDD - Insulin Dep Diabetes OSBR - Open Spina Bifida Risk . For further inquiries contact [facility] at [phone]. . This test was developed and its performance characteristics determined by [employer]. It has not been cleared or approved by the Food and Drug Administration.Performed By: #### AFPMAT #### [facility] [address] [place] [address] Dr. Emilee Barrow Age Collection Date18.6 weeksFort [facility] Hospital Comment on above:Performed By: #### AFPMAT #### [facility] [address] [place] [address] Dr. Emilee Vargas, Age Based [facility] SystemComment on above:Result Comment: 01/26/2023 Recalculations are not recommended when gestational dating by LMP and ultrasound are within 10 days.Performed By: #### AFPMAT #### [facility] [address] [place] [address] Dr. Emilee Luis Dep DiabetesUC Medical CenterComment on above:Result Comment: Not provided. .Performed By: #### AFPMAT #### [facility] [address] [place] [address] Dr. Emilee SpringerInterpretationUC Medical CenterComment on above: Result Comment: Interpretation: [...] Customer Services to discuss available options. The [place] [employer] recommends amniocentesis be offered to women age 35 and older.Performed By: #### AFPMAT #### [facility] [address] [place] [address] Dr. Emilee SpringerMaternakrista Age at EDD22.3 yrFort Hamilton HospitalComment on above:Performed By: #### AFPMAT #### [facility] [address] [place] [address] Dr. Emilee Porras [facility] on above:Result Comment: Not provided. .Performed By: #### AFPMAT #### [facility] [address] [place] [address] Dr. Emilee CanoBR Risk 1 [id number] Clinic [facility] Hospital on above: Performed By: #### AFPMAT #### [facility] [address] [place] [address] Dr. Emilee Galo.NormalThe [facility] on above:Performed By: #### AFPMAT #### [facility] [address] [place] [address] Dr. Emilee FinnMedina Hospital on above:Result Comment: Not provided. .Performed By: #### AFPMAT #### [facility] [address] [place] [address] Dr. Emilee Arvizu Results:NegativeNoCleveland Clinic Union Hospital on above: Performed By: #### AFPMAT #### [facility] [address] [place] [address] Dr. Emilee Salcedo antibody, IgGon 51-55-8722Qoilmqj virus IgG Ql (S)314.5 IU/mLRest[facility] Center on above: REFERENCE RANGE: <5.0 NON-REACTIVE (non-immune) 5.0 TO 9.9 EQUIVOCAL >=10.0 REACTIVE (immune) [facility] B SURFACE ANTIGEN SCREENon 27-97-5681OCuVm Screen NegativeNormalNegativeSelect Medical Specialty Hospital [facility] on above:Performed By: #### HBSANS #### [facility] [address] [place] [address] Dr. Emilee WhalenTIS C VIRUS AB W/ REFLEX QUANTon 86-12-3120IAP AB<0.1Normal 0.0-0.9The [facility] on above:Performed By: #### HCVPCRR #### [facility] [address] [place] [address] Dr. Emilee SpringerInterpretation:CommentNormalThe [facility] on above:Result Comment: Negative Not infected with HCV, unless recent infection is suspected or other evidence exists to indicate HCV infection.Performed By: #### HCVPCRR #### [facility] [address] [place] [address] Dr. Emilee SpringerHIV 1 AND 2 WITH REFLEXon 97-00-1726QAF Screen 4th Generation wRfxNon-ReactiveNormalNon ReactiveThe [facility] on above:Result Comment: HIV Negative HIV-1/HIV-2 antibodies and HIV-1 p24 antigen were NOT detected. There is no laboratory evidence of HIV infection.Performed By: #### CBC #### [facility] [address] [place] [address] Dr. Emilee SpringerRPR QUANTon 80-35-1259Wslrq Plasma Reagin, QuantNon-Reactive NormalNonRea<1:1The [facility] on above:Result Comment: Please Note: This test does not meet current guidelines for screening and diagnosis of syphilis. This test is intended for following treatment response in patients being treated for syphilis infection. To screen for syphilis infection, a reflex cascade that includes both RPR and a treponema-specific assay should be utilized, such as Treponema pallidum (Syphilis) Screening [place] (544235) or Rapid Plasma Reagin (RPR) Test With Reflex to Quantitative RPR and Confirmatory Treponema pallidum Antibodies (838467).Performed By: #### CBC #### [facility] [address] [place] [address] Dr. Emilee BustillosBELLA AB IGGon 14-40-2154Thmuplf Antibodies, IgG5.03 index NormalImmune >0.99The [facility] on above:Result Comment: Non- immune <0.90 Equivocal 0.90 - 0.99 Immune >0.99Performed By: #### RUBIGG #### [facility] [address] [place] [address] Dr. Emilee SpringerCBC AUTO DIFFon 09-87-6858MGYT #0.0 103/ulNormal0.0-0.1The Genesis HospitalComment on above:Performed By: #### GLU1HR #### [facility] [address] [place] [address] Dr. Emilee SpringerBasophils/100 WBC (Bld)0.2 %Normal0.2-2.0[facility] Comment on above:Performed By: #### GLU1HR #### [facility] [address] [place] [address] Dr. Emilee Weldon #0.1 103/ulNormal0.0-0.7The Genesis HospitalComment on above: Performed By: #### GLU1HR #### [facility] [address] [place] [address] Dr. Emilee Cintronosinophils/100 WBC (Bld)0.9 %Normal0.9-7.0[facility] Comment on above:Performed By: #### GLU1HR #### [facility] [address] [place] [address] Dr. Emilee Cintronrythrocyte distribution width (RBC) [Ratio]11.9 %Eonyfb34.0-15.0 The Genesis HospitalComment on above:Performed By: #### GLU1HR #### [facility] [address] [place] [address] Dr. Emilee SpringerHematocrit (Bld) [Volume fraction]32.9 %Critically low36.0-48.0 The Genesis HospitalComment on above:Performed By: #### GLU1HR #### [facility] [address] [place] [address] Dr. Emilee SpringerHemoglobin (Bld) [Mass/Vol]11.6 g/dLCritically low12.0-16.0The Genesis HospitalComment on above:Performed By: #### GLU1HR #### [facility] [address] [place] [address] Dr. Emilee Van #0.03 10e3/ulNormal0.00-0.03The Genesis HospitalComment on above:Performed By: #### GLU1HR #### [facility] [address] [address] [address] Emilee Van %0.3 %Normal0.0-0.5The Genesis HospitalComment on above: Performed By: #### GLU1HR #### [facility] [address] [address] [address] Emilee Renae #2.1 103/ulNormal1.2-3.8The Genesis HospitalComment on above:Performed By: #### GLU1HR #### [facility] [address] [place] [address] Dr. Emilee Danielhocytes/100 WBC (Bld)20.2 %Critically low20.5-60.0The Genesis HospitalComment on above:Performed By: #### GLU1HR #### [facility] [address] [place] [address] Dr. Emilee PenningtonUAL DIFF REQNONormalThe Genesis HospitalComment on above: Performed By: #### GLU1HR #### [facility] [address] [place] [address] Dr. Emilee Hannah (RBC) [Entitic mass]31.4 faHsyrim39.7-34.0The Genesis HospitalComment on above:Performed By: #### GLU1HR #### [facility] [address] [place] [address] Dr. Emilee Guevara (RBC) [Mass/Vol]35.3 g/dLCritically high29.9-35.2The Genesis HospitalComment on above:Performed By: #### GLU1HR #### [facility] [address] [place] [address] Dr. Emilee Guevara (RBC) [Entitic vol]89.2 uDUbbgvo82.0-99.0[facility] Medical CenterComment on above:Performed By: #### GLU1HR #### [facility] [address] [place] [address] Dr. Emilee Banegas #0.7 103/ulNormal0.3-0.8The [facility] HospitalComment on above:Performed By: #### GLU1HR #### [facility] [address] [place] [address] Dr. Emilee Hightowerocytes/100 WBC (Bld)7.0 %Normal1.7-12.0[facility] Comment on above:Performed By: #### GLU1HR #### [facility] [address] [place] [address] Dr. Emilee Fernandez #7.5 103/ulCritically high1.4-6.5[facility] Comment on above:Performed By: #### GLU1HR #### [facility] [address] [place] [address] Dr. Emilee Meeksutrophils/100 WBC (Bld)71.4 %Egjyuz76.0-75.0The [facility] HospitalComment on above:Performed By: #### GLU1HR #### [facility] [address] [place] [address] Dr. Emilee Olmedolet mean volume (Bld) [Entitic vol]9.1 fLCritically low 9.5-13.5The Genesis HospitalComment on above:Performed By: #### GLU1HR #### [facility] [address] [place] [address] Dr. Emilee SpringerPLT311 103/zuKsksvu466-159Eki Genesis HospitalComment on above: Performed By: #### GLU1HR #### [facility] [address] [place] [address] Dr. Emilee SpringerRBC3.69 106/ulCritically low4.20-5.40The [facility] HospitalComment on above:Performed By: #### GLU1HR #### [facility] [address] [place] [address] Dr. Emilee SpringerWBC10.5 103/ulNormal4.0-11.0The Genesis HospitalComment on above:Performed By: #### GLU1HR #### [facility] [address] [place] [address] Dr. Emilee TerryURE URINEon 16-85-1679LLMIGFG URINECulture Observations: LIGHT GROWTH OF MIXED GENITAL BREN. NO POTENTIAL PATHOGENS SEEN.NormalThe Genesis HospitalComment on above:Performed By: #### GLU1HR #### [facility] [address] [place] [address] Dr. Emilee SpringerGLYCOHEMOGLOBIN A1Con 90-53-8775EIQ RECOMMENDATIONSEE BELOWNormal The Genesis HospitalComment on above:Result Comment: ADA RECOMMENDED LIMIT 4.0 - 6.0 ADA THERAPEUTIC TARGET < 7.0 ACTION SUGGESTED > 7.0Performed By: #### A1C #### [facility] [address] [place] [address] Dr. Emilee SpringerGlucose [Mass/Vol]108 mg/dLFort Hamilton HospitalComment on above:Performed By: #### A1C #### [facility] [address] [place] [address] Dr. Emilee SpringerHbA1c (Bld) [Mass fraction]5.4 %Normal4.5-6.2The Genesis HospitalComment on above:Performed By: #### A1C #### [facility] [address] [place] [address] Dr. Emilee MaguireERA BOX TEST PT SEND OUTon 73-91-3873RTWZ TO REF LAB07/04/2022 NormalMetrohealth Parma Medical CenterComment on above:Performed By: #### NBOX #### [facility] [address] [place] [address] Dr. Emilee SpringerTYPE AND SCREENon 45-99-4024WPUZ AND SCREENNegativeNoMagruder Memorial HospitalComment on above:Performed By: #### GLU1HR #### [facility] [address] [place] [address] Dr. Emilee SpringerUS PREG TVon 53-49-0584JH PREG TVEXAMINATION: US PREG TV HISTORY: test [...] Electronically authenticated by: YELENA CARLOS Date: 2022-06-23 17:00NoMagruder Memorial HospitalHCG, Quantitative, Pregnancyon 46-69-1819tBP [id number] RIVERSIDE TAPPAHANNOCK HOSPITALComment on above: Non-preg premeno <=5 Postmeno <=8 Male <=3 If HCG results do not concur with clinical observations, additional testing to confirm results is recommended. Interpretation and review of laboratory resultsAbnoLead-Deadwood Regional HospitalOG PANEL 2: 21 to 29on 04-24-2022..NormalMetrohealth Parma Medical CenterComment on above:Performed By: #### [id number] #### [facility] [address] [place] [address] Dr. Emilee Black Gdln ACOG Ctmzfsm68-16AzotzvKsiMagruder Memorial HospitalComuniversity of michigan health on above:Performed By: #### [id number] #### [facility] [address] [place] [address] Dr. Emilee SpringerDIAGNOSIS:CommentNoCleveland Clinic [facility] Hospital on above: Result Comment: NEGATIVE FOR INTRAEPITHELIAL LESION OR MALIGNANCY. CELLULAR CHANGES ASSOCIATED WITH INFLAMMATION ARE PRESENT.Performed By: #### [id number] #### [facility] [address] [place] [address] Dr. Emilee SpringerMethodology:CommentNormProMedica Defiance Regional Hospitalment on above: Result Comment: This liquid based ThinPrep(R) pap test was screened with the use of an image guided system.Performed By: #### [id number] #### [facility] [address] [place] [address] Dr. Emilee SpringerNote:CommentNoCleveland Clinic Union Hospital on above:Result Comment: The Pap smear is a screening test designed to aid in the detection of premalignant and malignant conditions of the uterine cervix. It is not a diagnostic procedure and should not be used as the sole means of detecting cervical cancer. Both false-positive and false-negative reports do occur. .Performed By: #### [id number] #### [facility] [address] [place] [address] Dr. Emilee SpringerPerformed by:CommentSt. Francis Hospital on above: Result Comment: Mary Lou Adams, CytotechnologistPerformed By: #### [id number] #### [facility] [address] [place] [address] Dr. Emilee SpringerReflex Criteria:CommentSt. Francis Hospital on above:Result Comment: The HPV DNA reflex criteria were not met with this specimen result therefore, no HPV testing was performed. .Performed By: #### [id number] #### [facility] [address] [place] [address] Dr. Emilee SpringerSpecimen adequacy:CommentSt. Francis Hospital on above:Result Comment: Satisfactory for evaluation. Endocervical and/or squamous metaplastic cells (endocervical component) are present.Performed By: #### [id number] #### [facility] [address] [place] [address] Dr. Emilee SpringerHCHonorio, Quantitative, Pregnancyon 46-85-5614bZQ Psrce92Aovf<5 IU/L [facility] on above: Non-preg premeno <=5 Postmeno <=8 Male <=3 If HCG results do not concur with clinical observations, additional testing to confirm results is recommended. Elevated results not associated with may be found in patients with other diseases such as tumors of the germ cells (testis, ovaries, etc.), bladder, pancreas, stomach, lungs, and liver. Interpretation and review of laboratory resultsAbnoRiver Falls Area Hospital RENAL COMPLETEOrdered By: Lorena Ricks on 92-71-5566Rrucnhvhzodl ultrasound of the kidneys and urinary bladder.[facility] [employer] Work Phone: eXAMINATION: RETROPERITONEAL ULTRASOUND OF THE KIDNEYS AND URINARY BLADDER 11/25/2020 COMPARISON: None HISTORY: ORDERING SYSTEM PROVIDED HISTORY: Frequent UTI TECHNOLOGIST PROVIDED HISTORY: This procedure can be scheduled via MyChart. Access your [employer] account by visiting [employer]. FINDINGS: Kidneys: The right kidney measures 11.1 cm in length and the left kidney measures 11.6 cm in length. Kidneys demonstrate normal cortical echogenicity. No evidence of hydronephrosis or intrarenal stones. Bladder: Unremarkable appearance of the bladder. No significant post void residual.[employer] Phone: eanuj, Nayeli Incoming Radiant Results From [employer] - 11/25/2020 3:59 PM EDT EXAMINATION: RETROPERITONEAL ULTRASOUND OF THE KIDNEYS AND URINARY BLADDER 11/25/2020 COMPARISON: None HISTORY: ORDERING SYSTEM PROVIDED HISTORY: Frequent UTI TECHNOLOGIST PROVIDED HISTORY: This procedure can be scheduled via [employer]. Access your [employer] account by visiting [employer]. FINDINGS: Kidneys: The right kidney measures 11.1 cm in length and the left kidney measures 11.6 cm in length. Kidneys demonstrate normal cortical echogenicity. No evidence of hydronephrosis or intrarenal stones. Bladder: Unremarkable appearance of the bladder. No significant post void residual. IMPRESSION: Unremarkable ultrasound of the kidneys and urinary bladder. [employer] Phone: [employer] [phone] [id number]#[id number]:127NoTrumbull Memorial HospitalAmbulatory Clinical Summaryon 57-18-2873Mfbqeznrmv Clinical Summary {73-lf-hv-ju-fd-[id number]-t6-33-5a-16-ce-86}CD:[id number] Memorial HospitalGeneral Surgery Office/Clinic Noteon 49-95-9883Bfxiemy Surgery Office/Clinic NoteChief Complaint post operative follow up HPI Staff 8 day post operative follow up post lap appendectomy completed while in[facility] at [facility]. Doing well. Minimal discomfort. Taking Ibuprofen [...] available Patient Education Exercise to Lose Weight, Czhw-ob-Myol Problem List/Past Medical History Ongoing Acute appendicitis [...] Use:., 10/13/2020 Family History Family history is negativeRegional Medical CenterComment on above: Result Comment: Electronically Signed By: LATANYA MCKENNA, Sushant Babb\Date and Time Signed: 10/13/20 13:39 EDTPatient Educationon 63-12-4285Sbhcklf Education Exercise to Lose Weight Exercise and [...] Document Reviewed: 08/12/2011 ExitCare? Patient Information ?2013 [facility].Regional Medical CenterProvider Letter FTon [phone] Letter [facility] October 13, 2020 VINNY VERMA [address] [place] [address] VINNY VERMA 2000 To Whom It May Concern, Please excuse above patient from work 10/14/20. Sincerely, Dr. Sushant Lott MD General SurgeryNoTrumbull Memorial HospitalPathology Noteon 10-08-2020 Pathology [id number]#1.00CD:[address] [place], [place] [address]Facesheeton 24-06-5824Dfpzygkya [id number]#1.00CD:[address] [place], [place] [address]Operative Reporton 87-84-1365Ieyhwjkxj Report [id number]#1.00CD:[address] [place], [place] [address]HIV Screenon 46-17-6057VXI Ag/AbNONREACTIVENONREACTIVECorey Hospital, [place] Comment on above:No laboratory evidence of HIV infection. If acute HIV infection is suspected, consider testing for HIV-1 RNA. Basic Metabolic Panelon 94-91-3218Agtns gap [Moles/Vol]11 mmol/L9 - 17 mmol/L [facility], KYBun/Cre Cqfbw03ZbdazCorey Hospital, KYCalcium [Mass/Vol]9.3 mg/dL8.6 - 10.4 mg/dLCorey Hospital, KYChloride [Moles/Vol]103 mmol/L98 - 107 mmol/LMMansfield Hospital [place], KYCO2 [Moles/Vol]23 mmol/L20 - 31 mmol/LMMansfield Hospital [place], KYCreatinine [Mass/Vol]0.57 mg/dL0.5 - 0.9 mg/dLCorey Hospital, KYGFR >60>60 mL/minBluffton Hospital [place], KYGFR Non->60>60 mL/minCorey Hospital, KYGlucose [Mass/Vol]88 mg/dL70 - 99 mg/dLCorey Hospital, KYPotassium [Moles/Vol]4.6 mmol/L3.7 - 5.3 mmol/LMMansfield Hospital [place], KYSodium [Moles/Vol]137 mmol/L135 - 144 mmol/[facility] [place], KYUrea nitrogen [Mass/Vol]11 mg/dL6 - 20 mg/dLCorey Hospital, IACBCon 73-89-5757Ojwwvvszqlw distribution width (RBC) [Ratio]11.7 %Low11.8 - 14.4 %[facility], [place] Hematocrit (Bld) [Volume fraction]36.4 %36.3 - 47.1 %[facility], [place] Hemoglobin (Bld) [Mass/Vol]12.2 g/dL11.9 - 15.1 g/dLCorey Hospital, [place] Interpretation and review of laboratory resultsAbnormalCorey Hospital, IAMCH (RBC) [Entitic mass]31.4 pg25.2 - 33.5 pgCorey Hospital, IAMCHC (RBC) [Mass/Vol]33.5 g/dL28.4 - 34.8 g/dLCorey Hospital, IAMCV (RBC) [Entitic vol] 93.8 fL82.6 - 102.9 fLCorey Hospital, IAPlatelet mean volume (Bld) [Entitic vol]9.2 fL8.1 - 13.5 fLCorey Hospital, IAPlatelets (Bld) [#/Vol]307 10*3/uL [facility], IARBC (Bld) [#/Vol]3.88 10*6/uLLow3.95 - 5.11 m/uLSelect Medical [facility]- [place], KYWBC (Bld) [#/Vol]7.2 10*3/[place], KYWBC (Bld) [#/Vol] 0.0 10*3/uL0.0 per 100 WBCAshfield, KYMetabolic Panelon 05-04-2020 GFR/1.73 sq M predicted among non-blacks MDRD (S/P/Bld) [Vol rate/Area][place], KYComment on above:Stage 1: Some kidney damage [...] body mass. Additional eGFR calculator available at: http://www.Jolicloud/multiple_crcl_2012.htm [facility] [id number] Qn2.22 m[IU]/[place], [place] Vital Signs Date TimeVital SignValuePerforming JtthvyiqsCpyummuk86-75-1452 13:22-0500Body mass index (BMI) [Ratio]38.38 kg/y1AkhceKorbit Work Phone: [facility] CenterHdyzcdospa52-33-3129 13:22-0500Body lpursg232.86 kgCorey LawUnBuyThat Work Phone: [facility] FultonJaneskjinp75-53-2198 13:22-0500Diastolic blood xglgeheu22 mm[Hg]Compario Work Phone: [facility] FultonKxwjavqffg11-42-1803 13:22-0500Systolic blood mm[Hg]Compario Work Phone: [facility] FultonVoqaszkaai04-26-8739 14:52-0500Body mass index (BMI) [Ratio]38.38 kg/m2Amy Jenkins PA Work Phone: [facility] FultonLntsukxmsr70-65-7342 14:52-0500Body rnkeki769.86 kgRegina Oralia PA Work Phone: [phone]-[facility]- FultonIaohezbrnd06-12-0056 14:52-0500Diastolic blood mm[Hg]Regina Oralia PA Work Phone: [phone]Jul[place] [address]Pcieycegan26-97-3584 14:52-0500Systolic blood fuxslgaj346 mm[Hg]Regina Caiey PA Work Phone: [phone] [place], [place] [address]Mgudjozxza43-01-1522 15:05-0400Body mass index (BMI) [Ratio]37.47 kg/s7Ualgk Law DO Work Phone: [phone] [place], [place] [address]Iggibklhxq94-89-0629 15:05-0400Body omvgdw699.29 kgCorey Law DO Work Phone: [phone]-[facility]- FultonQgkatkdyrk41-37-7457 15:05-0400Diastolic blood tizoqlom54 mm[Hg]Mukul Law DO Work Phone: [phone] [place], [place] [address]Lftjxetlcw97-84-5990 15:05-0400Systolic blood yjazhboi577 mm[Hg]Mukul Law DO Work Phone: [phone] [place], [place] [address]Jhaejqrepu41-27-8379 15:11-0400Body mass index (BMI) [Ratio]36.7 kg/f8UuzenlgzCeasar Li NETWORK SUPPORT TECHNICIAN Work Phone: [phone]-[facility]ly [facility] FultonIbzwcbsoox59-34-5620 15:11-0400Body wuaiuj383.15 kgKrdaly Li NETWORK SUPPORT TECHNICIAN Work Phone: [phone] [place], [place] [address]Ersgoryuwj63-47-3474 15:11-0400Diastolic blood svargggi42 mm[Hg]Ceasar Li NETWORK SUPPORT TECHNICIAN Work Phone: [phone] [place], [place] [address]Oqcwlrjmey43-42-3741 15:11-0400Systolic blood hwccsegr421 mm[Hg]Ceasar Li NETWORK SUPPORT TECHNICIAN Work Phone: [phone] [place], [place] [address]Kjbwlsmgyw99-59-1251 15:50-0400Body mass index (BMI) [Ratio]36.64 kg/m2Regina Barton PA Work Phone: [facility] FultonDwruwvxogo82-97-7709 15:50-0400Body .97 kgRegina Barton PA Work Phone: [facility] FultonWrsehjivok16-17-0425 15:50-0400Diastolic blood mm[Hg]Regina Barton PA Work Phone: [facility] FultonIzshdugcqx93-52-7351 15:50-0400Systolic blood utopqdsh018 mm[Hg]Regina Barton PA Work Phone: [facility] FultonYiprhinabl38-13-8585 15:44-0400Body mass index (BMI) [Ratio]36.61 kg/m2Amy Oralia PA Work Phone: [facility] FultonNiqyilcnlz41-57-3746 15:44-0400Body kynmho944.88 kgRegina Barton PA Work Phone: [facility] FultonToejoeceyb17-80-8130 15:44-0400Diastolic blood uhuoirkm29 mm[Hg]Regina Barton PA Work Phone: [phone] [place], [place] [address]Jmlaipangd51-61-5993 15:44-0400Systolic blood huzqvkfr112 mm[Hg]Regina Barton PA Work Phone: [facility] FultonOudfxvwirm42-42-0972 16:08-0400Body mass index (BMI) [Ratio]36.12 kg/j2Gitle Law DO Work Phone: [facility] FultonLcbgxnnfga17-15-6203 16:08-0400Body tipgjv276.52 kgCorey Law DO Work Phone: [facility] FultonLsgqkobhuw01-57-7397 16:08-0400Diastolic blood vmxwksuf87 mm[Hg]Mukul Law DO Work Phone: [place] [address]Fczipsjjec82-37-6230 16:08-0400Systolic blood sqsrdulf112 mm[Hg]Mukul Law DO Work Phone: [facility] FultonJesvtrvdje10-98-8838 15:58-0400Body mass index (BMI) [Ratio]35.96 kg/o1Siqal Law DO Work Phone: [facility] FultonWswvvulszd68-75-7322 15:58-0400Body ydjojc553.06 kgCorey Law DO Work Phone: [facility] FultonPwtxqjshli57-89-6473 15:58-0400Diastolic blood mm[Hg]Mukul Law DO Work Phone: [facility] FultonUqvvoprdwt46-89-6596 15:58-0400Systolic blood nzaowsrj394 mm[Hg]Mukul Law DO Work Phone: [phone] [place], [place] [address]Uwbbcndfdt01-40-7478 14:06-0400Body mass index (BMI) [Ratio]34.99 kg/l3Bjspi Law DO Work Phone: [phone] [place], [place] [address]Zzbcftamsn37-04-2426 14:06-0400Body miptua78.34 kgCorey Law DO Work Phone: [phone] [place], [place] [address]Ypqpcdegdk91-85-1827 14:06-0400Diastolic blood mm[Hg]Mukul Law DO Work Phone: [phone] [place], [place] [address]Azwrxjagbl58-06-0101 14:06-0400Systolic blood zuhrkpkh208 mm[Hg]Mukul Law DO Work Phone: [phone] [place], [place] [address]Fcqqhizpvl02-31-5351 16:41-0400Body mass index (BMI) [Ratio]34.19 kg/u1Uaooo Law DO Work Phone: [phone] [place], [place] [address]Ibfmldasrn07-67-9397 16:41-0400Body .07 kgCorey Law DO Work Phone: [phone] [place], [place] [address]Kdewrstbnv13-18-9638 16:41-0400Diastolic blood mqltetbc91 mm[Hg]Mukul Law DO Work Phone: [phone] [place], [place] [address]Qpseovxhzt33-14-1378 16:41-0400Systolic blood uacatbda063 mm[Hg]Mukul Law DO Work Phone: [facility] FultonLxqhnoufyj69-15-5113 16:15-0400Body mass index (BMI) [Ratio]34.22 kg/d0Wikux Law DO Work Phone: [facility] FultonRpbljultuf26-34-6678 16:15-0400Body wxgvod93.16 kgCorey Law DO Work Phone: [facility] FultonUwigmtvxhd29-19-2704 16:15-0400Diastolic blood yjholwcf02 mm[Hg]Mukul Law DO Work Phone: [facility] FultonYvlqrcoyhf35-48-7071 16:15-0400Systolic blood quoqslcn580 mm[Hg]Mukul Law DO Work Phone: [facility] FultonBonexksocd81-35-9178 15:15-0400Body mass index (BMI) [Ratio]33.57 kg/m2[facility]04-24-2025 15:15-0400Body aaleab33.35 kgSaint [facility]04-24-2025 15:15-0400Diastolic blood bpzyeudk13 mm[Hg][facility]04-24-2025 15:15-0400Systolic blood lcfwgsiy203 mm[Hg][facility]12-23-2024 16:25-0500Body mass index (BMI) [Ratio]32.93 kg/o7Teumb Law DO Work Phone: [facility] FultonDdatwfmzne61-83-2348 16:25-0500Body .53 kgCorey Law DO Work Phone: [facility] FultonCrfcrvyksi92-44-2962 03:06-0500Body kwxnyh69.8024 kgDR MUKUL LAW .[facility] HospitalComment on above:Performed By: #### AFPMAT #### [facility] [address] [address] [address] Emilee Springer Encounters Encounter DateEncounter TypeCare ProviderFacilityStart: 06-02-2025 End: 14-00-5221Mspzakyc flow sheetCorey Law DO Work Phone: [facility] OBGYNComment on above:37 weeks gestation of ([facility] Third trimester ([facility]); Insulin controlled gestational diabetes mellitus (GDM) during , antepartum ([facility]); Gestational diabetes mellitus (GDM), antepartum, gestational diabetes method of control unspecified([facility])Start: 06-02-2025 End: 03-50-5416xglokyrvztEVFCM FAZIONot AvailableStart: 05-29-2025 End: 05-17-7070Rvtkhmtou Result EncounterCorey Law DO Work Phone: noms External Department UnsolicitedStart: 05-29-2025 End: 97-13-3399Gzzeirkfl Result EncounterCorey Law DO Work Phone: noms External Department UnsolicitedStart: 05-28-2025 End: 69-04-5001Soikciow flow sheetRegina RUIZ Work Phone: [facility]ell OBGYNComment on above:Third trimester ([facility]); 36 weeks gestation of ([facility])Start: 05-28-2025 End: 56-05-9841axivdwnzdsJBE ORALIANot AvailableStart: 05-28-2025 End: 45-16-8536Nxvvmxyir Result EncounterAmy Oralia RUIZ Work Phone: NOM[facility] External Department UnsolicitedStart: 05-28-2025 End: 93-84-5776Bqfxxuwjy Result EncounterAmy Oralia RUIZ Work Phone: noMS External Department UnsolicitedStart: 05-21-2025 End: 72-19-9140Izixuoyii Result EncounterCorey Law DO Work Phone: NOMS External Department UnsolicitedStart: 05-21-2025 End: 65-05-9505Gabvhlmkq Result EncounterCorey Law DO Work Phone: NOMS External Department UnsolicitedStart: 05-14-2025 End: 96-19-0020qiwhpfeefuXUBUV FAZIONot AvailableStart: 05-14-2025 End: 66-79-9067Fkdklpji flow sheetCorey Law DO Work Phone: NOVG [facility] OBGYNComment on above:Third trimester ([facility]); 34 weeks gestation of ([facility]); Insulin controlled gestational diabetes mellitus (GDM) during , antepartum ([facility]); Gestational diabetes mellitus (GDM), antepartum, gestational diabetes method of control unspecified([facility])Start: 05-14-2025 End: 01-00-2612Gbrqyu flowsheetCorey Law DO Work Phone: NOM[facility]ell OBGYNStart: 05-14-2025 End: 15-26-7723Qgmgpk flowsheetCorey Law DO Work Phone: NOMS Heri OBGYNStart: 04-30-2025 End: 92-10-6461vqkppxddxcVTGPZOAX EBERLYNot AvailableStart: 04-30-2025 End: 06-75-4801Ivuwwzzc flow sheetDanielistina Guillermo NETWORK SUPPORT TECHNICIAN Work Phone: NOMS Heri OBGYNComment on above:Third trimester ([facility]); 32 weeks gestation of ([facility])Start: 04-30-2025 End: 92-92-4489Zbcvsj flowsheetDanielistina Guillermo NETWORK SUPPORT TECHNICIAN Work Phone: [facility] Heri OBGYNStart: 04-30-2025 End: 88-67-9728Opkvsk flowsheetKristina Guillermo NETWORK SUPPORT TECHNICIAN Work Phone: N[facility] Heri OBGYNStart: 04-30-2025 End: 56-45-3061Wkfiqksmk Result EncounterCorey Law DO Work Phone: [phone] External Department UnsolicitedStart: 04-14-2025 End: 48-93-9907nytkmnipywEDB RAMEYNot AvailableStart: 04-14-2025 End: 85-15-8411Bxccgtuh flow Chuy RUIZ Work Phone: [facility] Heri OBGYNComment on above:Third trimester ([facility]); 30 weeks gestation of ([facility])Start: 04-14-2025 End: 73-04-0369Jrjtxa Darek RUIZ Work Phone: NOM[facility] Liriano OBGYNStart: 04-14-2025 End: 30-95-1178Nwqwag Darek RUIZ Work Phone: [facility] Liriano OBGYNStart: 04-05-2025 End: 11-81-6751Ycigayzgh Result EncounterRegina RUIZ Work Phone: NO External Department UnsolicitedStart: 04-05-2025 End: 05-91-1979Jxwrxgqwn Result EncounterRegina RUIZ Work Phone: no External Department UnsolicitedStart: 04-03-2025 End: 30-93-4948cytdlxcdyfCNK RAMEYNot AvailableStart: 04-03-2025 End: 41-87-8350Ryziayks flow Chuy RUIZ Work Phone: [facility] Liriano OBGYNComment on above:28 weeks gestation of ([facility]); Third trimester ([facility]); Dizziness; Gestational diabetes mellitus (GDM), antepartum, gestational diabetes method of control unspecified([facility]); History of miscarriage; Anemia, unspecified type; UTI symptomsStart: 04-03-2025 End: 83-53-4980Eeptcf Darek RUIZ Work Phone: [facility] Liriano OBGYNStart: 04-03-2025 End: 90-04-2202Lccfth Darek RUIZ Work Phone: [facility] Liriano OBGYNStart: 03-12-2025 End: 58-30-7862qlwxnclikqRXNLN FAZIONot AvailableStart: 03-12-2025 End: 27-94-2579Tkhegnkl flow sheetCorey Law DO Work Phone: NOMS Heri OBGYNComment on above:25 weeks gestation of ([facility]); Second trimester ([facility]); Gastroesophageal reflux disease without esophagitisStart: 03-12-2025 End: 38-41-7076Gvedlx flowsheetCorey Law DO Work Phone: [facility] Heri OBGYNStart: 03-12-2025 End: 92-10-2527Riihjm flowsheetCorey Law DO Work Phone: NOMS Kendallue OBGYNStart: 02-26-2025 End: 11-50-8324hvggzagmhpLIPLC FAZIONot AvailableStart: 02-26-2025 End: 45-98-1364Jxjfoqsp flow sheetCorey Law DO Work Phone: [facility]ell OBGYNComment on above:23 weeks gestation of ([facility]); Elevated blood sugar level; Gastroesophageal reflux disease without esophagitisStart: 02-26-2025 End: 84-35-6552Prglzk flowsheetCorey Law DO Work Phone: [facility] Heri OBGYNStart: 02-26-2025 End: 48-13-6953Phbcvj flowsheetCorey Law DO Work Phone: noMS Heri OBGYNStart: 02-11-2025 End: 36-32-7780Jctrorze flow sheetCorey Law DO Work Phone: NOMS BCP OBComment on above:Second trimester ([facility]); 20 weeks gestation of ([facility])Start: 02-11-2025 End: 93-85-4461linarprhroDWLRD FAZIONot AvailableStart: 01-15-2025 End: 07-55-2185uhjymqxndiFDVRA FAZIONot AvailableStart: 01-15-2025 End: 73-37-9248Ixetlxhc flow sheetCorey Law DO Work Phone: NOMS BCP OBComment on above:Second trimester ([facility]); 17 weeks gestation of ([facility]); Vaginal discharge; STD exposure; Screening, , for anatomic survey ([facility]); Gastroesophageal reflux in ([facility]); Gestational diabetes mellitus (GDM), antepartum, gestational diabetes method of control unspecified([facility])Start: 01-15-2025 End: 42-71-9216Dxswrw flowsheetCorey Law DO Work Phone: noms BCP OBStart: 01-15-2025 End: 50-89-9334Twlttc flowsheetCorey Law DO Work Phone: noms BCP OBStart: 01-15-2025 End: 96-32-9432Yysynyhy Result EncounterAmy Oralia RUIZ Work Phone: noMS External Department UnsolicitedStart: 01-07-2025 End: 89-73-2322jrpyolurntEMROZYHallie Lamas [facility] HospitalStart: 01-07-2025 End: 70-86-6315Avhqnqzqhy hospital visit by Kayden Steele CNP Work Phone: [facility] LABStart: 12-23-2024 End: 83-13-1773Epyjwusez Result EncounterCorey Law DO Work Phone: noMS External Department UnsolicitedStart: 12-23-2024 End: 96-40-3752Dcvesajnq Result EncounterCorey Law DO Work Phone: noms External Department UnsolicitedStart: 12-20-2024 End: 06-66-5913xtuaqjntjaERPFRTHallie Lamas [facility] HospitalStart: 12-20-2024 End: 13-89-1646Dsbpojtljf hospital visit by Arabella Vance [facility] UltrasoundComment on above:Subchorionic hematoma, antepartum, first trimester, not applicable or unspecified fetusStart: 12-18-2024 End: 83-65-3809tzeeuffgoaLUBBW FAZIONot AvailableStart: 12-18-2024 End: 38-95-7193Sbnkwdqd flow sheetCorey Law DO Work Phone: noms BCP OBComment on above:Second trimester ; 12 weeks gestation of ; Subchorionic hematoma in first trimester, single or unspecified fetus; Diabetes mellitus screeningStart: 12-18-2024 End: 83-53-0388Idlymt flowsheetCorey Law DO Work Phone: noMS BCP OBStart: 12-18-2024 End: 38-84-5171Gzczrv flowsheetCorey Law DO Work Phone: NOMS BCP OBStart: 11-14-2024 End: 83-36-8700Cwqnka outpatient visit 5 minutesNoms Bcp Ob Law NurseNOMS BCP OBComment on above:[place]: 4e7uZeotn: 11-14-2024 End: 01-27-6921teuolkpgiwSAXIL FAZIONot AvailableStart: 07-15-2024 End: 15-74-6258Mqvhqqf encounter procedureCorey Law DO Work Phone: NOMS HealthcareStart: 07-15-2024 End: 02-73-5948Ynypexix preventive med est patient 18-39 yrsCorey Law DO Work Phone: NOIZ BCP OBComment on above:Well woman exam with routine gynecological examStart: 07-15-2024 End: 08-54-8855ppusukhueoRYYAB FAZIONot AvailableStart: 07-15-2024 End: 76-63-1807Rxxyrwvsg Result EncounterCorey Law DO Work Phone: NOMS External Department UnsolicitedStart: 07-15-2024 End: 44-92-2785Fnehvpmhw Result EncounterCorey Law DO Work Phone: noms External Department UnsolicitedStart: 05-20-2024 End: 23-84-6340xgvxyvzqswVUWHRYHallie Lamas [facility] HospitalStart: 05-20-2024 End: 65-99-0751Zikhwnwljm hospital visit by Kayden Steele CNP Work Phone: mthz LaboratoryComment on above:Elevated liver enzymes; Mixed hyperlipidemiaStart: 03-06-2024 End: 47-56-2158ntspxaxokrCDYAGCHallie Lamas [facility] HospitalStart: 02-16-2024 End: 56-77-3414lkbbipwycnTRSQYDHallie Cortés HospitalStart: 08-06-2023 End: 01-15-9171nryqwycrshPuxafitw:[facility] HospitalStart: 07-11-2023 End: 83-50-2790syswuhuriaUZAK [facility]htart: 03-20-2023 End: 25-30-9874evvujyagqlJWXLL [facility] Hospitaltart: 12-17-2022 End: 74-81-9514rggnxibaqbCB MUKUL LAW .Facility:J8Kdkco: 12-12-2022 End: 08-74-1884mplopfmzulXU KYLIE SEYMOUR .Facility:B8Fnhck: 12-10-2022 End: 53-21-1700ntljxrniwgQI MUKUL LAW .Facility:G2Hlkwm: 10-31-2022 End: 31-81-0882pyarcxennkJR MUKUL LAW .Facility:U9Gdwsw: 10-22-2022 End: 94-18-2264nhnainrsyoPLY ORALIA .Facility:D2Vsqve: 10-15-2022 End: 13-07-0620qpzunkjnvvIS MUKUL LAW .Facility:A0Lwbbd: 09-12-2022 End: 58-28-7462zncgefxizzGJ MUKUL LAW .Facility:T7Pzmgw: 09-10-2022 End: 80-36-7878qcioukhaqkKG MUKUL LAW .Facility:M3Suhme: 08-29-2022 End: 17-26-9667gksnwxljopAF MUKUL LAW .Facility:H0Ovygq: 08-01-2022 End: 48-71-9389Klqoptatbi hospital visit by [facility]CO[facility] LaboratoryStart: 07-04-2022 End: 80-95-1436roodgmptojYB MUKUL LAW .Facility:F6Akalq: 06-23-2022 End: 41-68-0509dopimycjkxCN YELENA Calicility:U8Fpsjt: 06-09-2022 End: 92-86-3142hvwfahtenrJW MUKUL LAW .Facility:F9Eexpy: 06-02-2022 End: 72-73-4980Cxkvbeghyz hospital visit by Kayden Steele CNP Work Phone: mthz LaboratoryStart: 04-18-2022 End: 71-42-2393odaildknnyGH MUKUL LAW .Facility:Q7Qlwbi: 09-23-2021 End: 35-48-9130njyvsntbheGNDPK CHECO Quilescleveland emergency hospitalbeatris [facility]ai HospitalStart: 09-08-2021 End: 80-02-6224unlsluemupHIGRB R FAZIORiverside Bahai HospitalStart: 08-25-2021 End: 90-79-0055knxametxvpSJFQZ R FAZIORiverside Bahai HospitalStart: 08-19-2021 End: 23-93-2447ixslqzywpgGPGKL R FAZIORiverside Bahai HospitalStart: 08-10-2021 End: 71-78-1686Comiruxkbh hospital visit by Kayden Rodriguez APRN - [employer] Work Phone: mthz LaboratoryComment on above:AmenorrheaStart: 11-25-2020 End: 79-55-4439Qiksyjjjxl hospital visit by [facility] RadiologyComment on above:Frequent UTIStart: 05-04-2020 End: 50-06-7355Rocripxegg hospital visit by Kayden Chapman LaboratoryComment on above:Encounter for screening for HIV; Other fatigue; Wellness examinationStart: 03-03-2020 End: 01-48-5003Vafcznxydq hospital visit by Brayden Dickinson LaboratoryComment on above:Screening for cervical cancer; Encounter for annual routine gynecological examination Procedures DateProcedureProcedure DetailPerforming ClinicianStart: 48-34-5879Aympl dip stick/tablet rgnt non-auto w/o micrscpCorey Law DO Work Phone: Start: 80-75-4169YP OB BPP W NON-STRESSCorey Law DO Work Phone: Start: 28-01-0504Kcxxo dip stick/tablet rgnt non-auto w/o micrscpAmy Oralia RUIZ Work Phone: Start: 81-34-2820XBLVS GP B CULTURE+RFLXAaric RUIZ Work Phone: Start: 71-32-7655BI OB BPP W NON-STRESSCorey Law DO Work Phone: Start: 32-94-5313Atjvy dip stick/tablet rgnt non-auto w/o micrscpCorey Law DO Work Phone: Start: 07-11-2270MJ OB BPP W NON-STRESSCorey Law DO Work Phone: Start: 15-62-4103Qisgw dip stick/tablet rgnt non-auto w/o micrscpKristina Guillermo NETWORK SUPPORT TECHNICIAN Work Phone: Start: 16-69-4755Mfxsm dip stick/tablet rgnt non-auto w/o micrscMerissa RUIZ Work Phone: Start: 95-92-7068JK OB GROWTHRegina RUIZ Work Phone: Start: 38-45-9196DOK CBC WITH AUTO DIFFRegina RUIZ Work Phone: Start: 09-10-2886Kgrmc dip stick/tablet rgnt non-auto w/o micrscMerissa RUIZ Work Phone: Start: 27-89-2746Wplxa dip stick/tablet rgnt non-auto w/o micrscpCorey Law DO Work Phone: Start: 64-80-7861Ubtna dip stick/tablet rgnt non-auto w/o micrscpCorey Law DO Work Phone: Start: 50-22-3303Cdbvj dip stick/tablet rgnt non-auto w/o micrscpCorey Law DO Work Phone: Start: 79-18-0255PGWQZSRXJ VAGINITIS (HTRX)Regina RUIZ Work Phone: Start: 07-49-8787Uiplh count complete automatedRegina Barton PA-C Work Phone: Start: 43-10-9721VI OB LESS THAN 14 WEEKS SINGLE OR FIRST GESTATIONCorey Law DO Work Phone: Start: 17-20-0877Rttgg dip stick/tablet rgnt non-auto w/o micrscpCorey Law DO Work Phone: Start: 58-35-8532Ghuto dip stick/tablet rgnt non-auto w/o micrscpCorey Law DO Work Phone: Start: 27-82-9745DWD,APTIMA HPV,AGE GDLNCorey Law DO Work Phone: Start: 26-39-1534Fatzgxuoluh observation [Identifier] in Cervix by Cyto Leonora Rodriguez [employer]ATOR [employer] Work Phone: Start: 73-71-8224Uxyjg panelYnes Rodriguez EXTERMINATOR [employer] Work Phone: Start: 63-70-6335Ojhdnzmazrvzx metabolic panelYnes Rodriguez EXTERMINATOR [employer] Work Phone: Start: 54-49-6504Ygzhsdlnwiy observation [Identifier] in Cervix by Cyto lynnetteVagoran RoomStart: 29-51-3301Okbchbre Navid Barroso EXTERMINATOR [employer]PER [employer] Work Phone: Start: 42-90-8974Zcitalvohegw chorionic quantitative Mukul Bill Foy MD Work Phone: Start: 46-94-0374Ffeyxjpetipc chorionic quantitative Berto Live EXTERMINATOR HELPER - CNM Work Phone: Start: 39-67-9548Cq retroperitoneal real time w/image completeBesilvestre Ricks EXTERMINATOR [employer] Work Phone: Start: 55-04-5623Cmnsiibc hiv-1&hiv-2 single result Ynes Rodriguez Work Phone: Start: 09-38-5813Rkykl of thyroid stimulating hormone tshYnes Rodriguez Work Phone: Start: 47-44-6551Ndlyz metabolic panel calcium total Ynes Rodriguez Work Phone: Start: 32-09-4381Djpup count complete automatedYnes Rodriguez Work Phone: Start: 84-22-9872Qkyerxfxunj observation [Identifier] in Cervix by Cyto stainYnes Rodriguez EXTER[employer]ATOR [employer] Work Phone: Plan of Treatment DateCare ActivityDetailAuthorStart: 23-13-0469Qynemegys for malignant neoplasm of cervixPap smearBon [facility] HospitalStart: 17-72-7524Bwcvdqoto for malignant neoplasm of cervixPap smearBon [facility] HospitalStart: 08-07-2025 Depression ScreenDepression ScreenCentra [facility]side Community HospitalStart: 07-28-2025 End: 12-84-9934Fqhbtjv encounter procedureNOMS BCP OBStart: 06-02-2025 End: 84-18-7384Fkpbkrs encounter pqkfzkguc30/10/2025 1:00 PM EST Routine [facility] [address] [place], [id number] Mukul Foy DO [address] [place] [address] [facility] Heri OBGYNStart: 05-28-2025 End: 79-22-0421Yxxknnv encounter /05/2025 2:30 PM EST Routine [facility] [address] [place], [id number] Regina Barton PA [address] [place] [address] [facility] Heri OBGYNStart: 05-28-2025 End: 72-16-4000QFHCETU, GROUP B STREP WITH SUSCEPTIBLITYCULTURE, GROUP B STREP WITH SUSCEPTIBLITY Lab Routine Third trimester ([facility]) Expected: 05/28/2025, Expires: 05/28/2026[facility] Work Phone: comment on above:Expected: 05/28/2025, Expires: 05/28/2026Start: 05-28-2025 End: 50-87-1131Kcrflmogmoem / ancillary services fepcazmfzj67/05/2025 2:00 PM EST Ancillary Procedure [facility] [address] [place] [phone] [facility] Wendell OBGYNStart: 23-90-4515Vwdqt panelLipids [facility]Start: 05-14-2025 End: 84-55-0166Okmjofz encounter tgwlfidgi06/22/2025 2:50 PM EDT Routine [facility] [address] [place], [id number] Mukul Foy DO [address] [place], [place] [id number] [facility] Heri OBGYNStart: 05-14-2025 End: 29-70-7276VK for pregnancyUS OB follow up transabdominal approach Imaging Routine Insulin controlled gestational diabetes mellitus (GDM) during , antepartum ([facility]) Expected: 05/14/2025, Expires: 09/14/2025[facility] Work Phone: comment on above:Expected: 05/14/2025, Expires: 09/14/2025Start: 05-14-2025 End: 23-14-9847Gihpmtn encounter vxfbsmjas01/22/2025 11:40 AM EDT Office Visit [facility] Care [address] [place] [address] [address] [place], [place] [phone] Ynes Rodriguez, EXTERMINATOR HELPER - [employer] PRECINCT [address] [place] [address] 6 month f/[facility] GeneralComment on above:6 month f/uStart: 04-30-2025 End: 44-78-2381Rmcyoji encounter vepqsacgo32/08/2025 3:00 PM EDT Routine [facility] Heri SANTO [address] [place], [id number] Ceasar Li, NETWORK SUPPORT TECHNICIAN [address] [place] [phone] NOMRenzo [place] OBGYNStart: 04-14-2025 End: 99-52-4585Gcomqcs encounter wkrsrcauj54/22/2025 3:20 PM EDT Routine NOMRenzo SANTO [address] [place], [id number] Regina Barton, PA [address] [place] [address] [facility] Heri OBGYNStart: 04-03-2025 End: 22-57-8024Tpqyiae encounter ksveimtdb43/11/2025 3:30 PM EDT Routine NOMRenzo SANTO [address] [place], [id number] Regina Barton, PA [address] [place] [address] NOMRenzo [place] OBGYNStart: 04-03-2025 End: 50-30-1623GKN W Auto Differential panel - BloodCBC and differential Lab Routine Dizziness Anemia, unspecified type Expected: 04/03/2025 (Approximate), Expires: 04/03/2026[facility] HealthcareComment on above:Expected: 04/03/2025 (Approximate), Expires: 04/03/2026Start: 04-03-2025 End: 00-69-3245CA biophysical profile w non stress testUS biophysical profile w non stress test Imaging Routine 28 weeks gestation of ([facility]) Third trimester ([facility]) Gestational diabetes mellitus (GDM), antepartum, gestational diabetes method of control unspecified ([facility]) History of miscarriage Expected: 04/03/2025 (Approximate), Expires: 10/01/2025[facility] on above:Expected: 04/03/2025 (Approximate), Expires: 10/01/2025Start: 04-03-2025 End: 53-11-4196MA for pregnancyUS OB follow up transabdominal approach Imaging Routine 28 weeks gestation of ([facility]) Third trimester ([facility]) Gestational diabetes mellitus (GDM), antepartum, gestational diabetes method of control unspecified ([facility]) History of miscarriage Expected: 04/03/2025, Expires: 08/03/2025[facility] Work Phone: comment on above:Expected: 04/03/2025, Expires: 08/03/2025Start: 56-48-0081HNJSM-19 Vaccine ( season)COVID-19 Vaccine ()[facility] HealthcareStart: 09-20-4477Gtwvfeiir vaccinationNOMS HealthcareStart: 15-06-2192Cnozhyvjy vaccinationFlu vaccine (Season Ended)Wilmer Brown [facility] HospitalStart: 02-11-2025 End: 18-31-0980Iubpruf encounter bhtgewqtp50/22/2025 2:10 PM EDT Routine [facility] [place] [address] [place] [address] Mukul Foy, DO [address] [place], [facility] BCP OBStart: 02-11-2025 End: 29-27-4798Jenqfsjdwlcf / ancillary services fpqihhguby39/22/2025 1:00 PM EDT Ancillary Procedure [facility] [address] [place] [address] [facility] BCP OBStart: 01-15-2025 End: 11-92-6046Mfiedus encounter fqxmwkcre23/25/2025 3:50 PM EDT Routine [facility] [place] [address] [place] [phone] Mukul Foy, DO [address] [place] [address] [place] [address] NOM[facility] BCP OBStart: 01-15-2025 End: 53-57-1354Bsgcj fetoprotein, maternalAlpha fetoprotein, maternal Lab Routine Second trimester ([facility]) 17 weeks gestation of ([facility]) Expected: 01/15/2025 (Approximate), Expires: 07/17/2025[facility] Comment on above:Expected: 01/15/2025 (Approximate), Expires: 07/17/2025Start: 01-15-2025 End: 73-31-4154UJ for pregnancyUS OB 14+ weeks anatomy scan Imaging Routine Screening, , for anatomic survey ([facility]) Expected: 01/15/2025, Expires: 04/17/2025[facility] HealthcareComment on above:Expected: 01/15/2025, Expires: 04/17/2025Start: 12-18-2024 End: 69-77-0966Micadus encounter otnirncfc03/28/2025 3:40 PM EDT Routine [facility] OB [address] [place] [address] Mukul Foy, [address] [place] [address] [facility] BCP OBStart: 12-18-2024 End: 94-37-2690CVJ panel - Blood by Automated countCBC Lab Routine Diabetes mellitus screening Expected: 12/18/2024 (Approximate), Expires: 12/18/2025[facility] Work Phone: comment on above:Expected: 12/18/2024 (Approximate), Expires: 12/18/2025Start: 12-18-2024 End: 81-11-9757Htkrgqvecfc of glucose 1 hour after glucose challenge for glucose tolerance testGlucose tolerance, 1 hour Lab Routine Diabetes mellitus screening Expected: 12/18/2024 (Approximate), Expires: 12/18/2025[facility] HealthcareComment on above:Expected: 12/18/2024 (Approximate), Expires: 12/18/2025Start: 12-18-2024 End: 69-17-1488QI Pelvis transvaginalUS OB transvaginal Imaging Routine Subchorionic hematoma in first trimester, single or unspecified fetus Expected: 12/18/2024, Expires: 03/20/2025[facility] Work Phone: comment on above:Expected: 12/18/2024, Expires: 03/20/2025Start: 11-14-2024 End: 03-37-9184DRF/RhABO/Rh Lab Routine Missed menses , unspecified gestational age Expected: 11/14/2024 (Approximate), Expires: 11/14/2025[facility] HealthcareComment on above:Expected: 11/14/2024 (Approximate), Expires: 11/14/2025Start: 11-14-2024 End: 34-11-6548Ukerv type and Indirect antibody screen panel - BloodType and screen Lab Routine Missed menses , unspecified gestational age Expected: 11/14/2024 (Approximate), Expires: 11/14/2025[facility] HealthcareComment on above:Expected: 11/14/2024 (Approximate), Expires: 11/14/2025Start: 11-14-2024 End: 47-16-4605Ppcbv of abuse panel - Urine by Screen methodRapid drug screen, urine Lab Routine , unspecified gestational age Encounter for supervision of normal first in first trimester Expected: 11/14/2024 (Approximate), Expires: 11/14/2025[facility] HealthcareComment on above:Expected: 11/14/2024 (Approximate), Expires: 11/14/2025Start: 11-06-2024 End: 26-40-6793VK Pelvis transvaginalUS OB transvaginal Imaging Routine Missed menses Expected: 11/06/2024, Expires: 02/05/2025[facility] Work Phone: comment on above:Expected: 11/06/2024, Expires: 02/05/2025Start: 10-16-2024 End: 74-74-3463Sqxtwhy encounter gxsflqnib89/26/2025 1:40 PM EDT Office Visit [address] [place] [address] Ynes Rodriguez, EXTERMINATOR HELPER - [employer] [address] [place] [address] Dr [address] [place] [address] [facility] Primary CareComment on above:WellnessStart: 64-05-2212Pwnexkixud ScreenDepression ScreenBon [facility] HospitalStart: 06-04-2024 End: 88-75-8884Sageoxw encounter gdjsjuczh10/12/2024 11:45 AM EST Office Visit [facility] [address] [place] [address] Dr [address] [place] [address] Jose Cruz Raza MD [address] [place] [address] Dr. [address] [place] [address] wt [facility] Primary CareComment on above:wt managementStart: 05-22-2024 End: 49-88-6071Zvkpvht encounter /30/2024 11:00 AM EDT Office Visit [facility] Care [address] [place] [address] Dr [address] [place] [address] Ynes Rodriguez, EXTERMINATOR HELPER - [employer] [address] [place] [address] Dr [address] [place] [address] LFT + HLD f/u(RS 10/17/23 appt)[facility] Primary CareComment on above:LFT + HLD f/u(RS 10/17/23 appt)Start: 30-39-6953AGDGG-19 Vaccine ( season)COVID-19 Vaccine ( season)[facility]Start: 67-23-6370PUTGS-19 Vaccine ( season)COVID-19 Vaccine ( season)Bon [facility]: 05-50-3603Bheigbjho vaccinationInfluenza Vaccine (#1)[facility] HealthcareStart: 36-07-5977Fohgjjydh vaccinationFlu vaccine (#1)[facility]Start: 78-84-1977Tifswncqc for malignant neoplasm of cervixMer HealthStart: 32-87-8979Vmvvjbowva ScreenDepression ScreenBON CHILL[facility]OTHE [facility] MEDICAL CENTERStart: 07-11-2022 End: 58-98-0963Ipydhku encounter ohrsrgopq86/19/2022 Office Visit Primary Care Ynes Rodriguez, EXTERMINATOR HELPER - [employer]CT [address] [place] [address] [facility] Start: 05-19-2022 End: 90-31-2005Jcrhnlc encounter mgedlsxof96/27/2022 Office Visit Obstetrics and Gynecology Berto Live, EXTERMINATOR HELPER - CN [address] [place] [address] [facility] OBSTETRICS & GYNECOLOGY Part [facility] HospitalStart: 03-18-2022 End: 18-57-5706Frifcab encounter ckqpdicgw55/26/2022 Office Visit Family Medicine Ynes Rodriguez, EXTERMINATOR HELPER - [employer] [address] [place] [address] [facility] FAMILY MEDICINE Part [facility] HospitalStart: 77-53-0637Ljtrcmkax C screeningHepatitis C screenMercy HealthComment on above:Postponed from 1998 (Patient Refused)Start: 71-47-6945Rzhbtbtwe vaccinationFlu vaccine (#1)[facility]: 35-27-6046Gmvdhtikw for Chlamydia trachomatisMercy HealthStart: 09-24-2021 Influenza vaccinationFlu vaccine (Season Ended)[facility] Work Phone: comment on above:Postponed from 03/24/2021 (Patient Refused)Start: 95-14-2853Yndihqxppy MonitoringDepression MonitoringMer Health Start: 70-70-5366HWFEL-19 Vaccine (3 - Booster for Pfizer series)COVID-19 Vaccine (3 - Booster for Pfizer series)[facility]: 48-12-5393FAkC/Tdap/Td vaccine (7 - Td or Tdap)DTaP/Tdap/Td vaccine (7 - Td or Tdap)[facility]: 43-94-6814EEwM/Tdap/Td vaccine (7 - Td)DTaP/Tdap/Td vaccine (7 - Td)[facility]: 72-75-0627Uokrjdaav vaccinationFlu vaccine (#1)[facility] Start: 51-33-5663Egjldgqby for Chlamydia trachomatisChlamydia screenMetroHealth Main Campus Medical Center: 92-97-9806MBNMD-19 Vaccine (3 - Booster for Pfizer series) COVID-19 Vaccine (3 - Booster for Pfizer series)WIL[facility] BROWN [facility]: 02-09-2021 End: 31-44-0310Xxcjfxh encounter ijvlrkyuh84/20/2021 Office Visit Family Medicine Ynes Rodriguez, EXTERMINATOR HELPER - [employer] [address] [place] [address] [phone] [facility] FAMILY MEDICINE Part [facility]: 11-30-2020 End: 48-46-1805Lqrnwio encounter eloedwjgy94/10/2021 Office Visit Urology Chris Moe MD [address] [facility] [place], [place] [phone] [facility] UROLOGY Part [facility]: 05-28-2020 End: 04-01-9592Zbpromrfnqmn15/05/2020 Telemedicine Family Medicine Ynes Rodriguez, EXTERMINATOR HELPER - [employer] [address] [place] [address] [phone] [facility] FAMILY MEDICINE Part [facility] Start: 13-55-3000Krkbsfafo vaccinationFlu vaccine (#1)[facility]: 74-14-1212Qlucelkcs for Chlamydia trachomatisChlamydia [facility]: 80-91-6148Qioegqsuz for malignant neoplasm of cervixCervical cancer [facility], [place]Start: 26-24-2932Hpjwkuver B Vaccines (1 of 3 - 19+ 3- dose series)Hepatitis B Vaccines (1 of 3 - 19+ 3-dose series)[facility] Start: 63-96-7684Wvmzjqjcu C screeningHepatitis C screenBON SECOU[facility] Start: 70-33-4489PILBL-19 Vaccine (1)COVID-19 Vaccine (1)[facility] Phone: start: 87-13-0394DBW screeningHIV [facility], IAStart: 87-35-3744BXQ Vaccines (1 - 3-dose series)HPV Vaccines (1 - 3-dose series)[facility] HealthcareStart: 67-11-0113Qdvawwu of varicella vaccinationVaricella Vaccines (1 of 2 - 13+ 2-dose series)[facility] HealthcareStart: 2005 DTaP/Tdap/Td Vaccines (1 - Tdap)DTaP/Tdap/Td Vaccines (1 - Tdap)[facility] Healthcare Start: 79-41-6805OTI Vaccines (1 of 1 - Standard series)MMR Vaccines (1 of 1 - Standard series)[facility] HealthcareStart: 27-19-7687Ycueogeap C screeningHepatitis C [facility] Phone: bacteria identified in Urine by CultureUrine culture Microbiology Routine Missed menses Ordered: 11/14/2024[facility] HealthcareComment on above:Ordered: 5Bacteria identified in Urine by CultureUrine culture Microbiology Routine UTI symptoms Ordered: 04/03/2025[facility] HealthcareComment on above:Ordered: 04/03/2025 End: 03-03-2020C.trachomatis N.gonorrhoeae DNA, Thin PrepC.trachomatis N.gonorrhoeae DNA, Thin Prep Microbiology Routine Encounter for annual routine gynecological examination 1 Occurrences starting 03/03/2020 until 03/03/2020 [facility] [place]Comment on [place]:1 Occurrences starting 03/03/2020 until 03/03/2020C.trachomatis N.gonorrhoeae DNA, Thin PrepC.trachomatis N.gonorrhoeae DNA, Thin Prep Microbiology Routine Encounter for annual routine gynecological examination 03/03/2020 5:08 PM [facility], [place]CBC W Auto Differential panel - BloodCBC and differential Lab Routine Missed menses , unspecified gestational age Ordered: 11/14/2024[facility] HealthcareComment on above: Ordered: 11/14/2024HLAMYDIA TRACHOMATIS (GENITO/STI)CHLAMYDIA TRACHOMATIS (GENITO/STI) Lab Routine STD exposure Ordered: 01/15/2025[facility] HealthcareComment on above:Ordered: 01/15/2025ytology Cervical or vaginal smear or scraping study Pap Smear Pathology and Cytology Routine Well woman exam with routine gynecological exam Ordered: 07/15/2024[facility] Work Phone: comment on above:Ordered: 07/15/2024 End: 29-21-2499Scqnkxbwhdpvy procedure, preparation of smear, genital sourcePAP SMEAR Lab Routine Screening for cervical cancer 1 Occurrences starting 03/03/2020 until 03/03/2020[facility] IAComment on above:1 Occurrences starting 03/03/2020 until 03/03/2020Hemoglobin A1c/Hemoglobin.total in Blood Hemoglobin A1c Lab Routine Missed menses , unspecified gestational age Ordered: 11/14/2024[facility] HealthcareComment on above:Ordered: 11/14/2024Hepatitis B virus surface Ag [Presence] in Serum or Plasma by ImmunoassayHepatitis B surface antigen Lab Routine Missed menses , unspecified gestational age Ordered: 11/14/2024[facility] HealthcareComment on above:Ordered: 11/14/2024Hepatitis C virus Ab [Presence] in Serum or Plasma by ImmunoassayHepatitis C antibody Lab Routine Missed menses , unspecified gestational age Ordered: 11/14[facility] HealthcareComment on above:Ordered: 11/14/2024HIV-1/HIV-2 antigen/antibody combination immunoassayHIV-1 and HIV-2 antibodies Lab Routine Missed menses , unspecified gestational age Ordered: 11/14/2024[facility] HealthcareComment on above:Ordered: 11/14/2024Neisseria gonorrhoeae DNA [Presence] in Unspecified specimen by ANISA with probe detectionNeisseria gonorrhea DNA probe, direct Lab Routine STD exposure Ordered: 01/15/2025[facility] HealthcareComment on above:Ordered: 01/15/2025Reagin Ab [Presence] in Serum by RPRRPR Lab Routine Missed menses , unspecified gestational age Ordered: 11/14/2024[facility] HealthcareComment on above:Ordered: 11/14/2024Rubella antibody, IgGRubella antibody, IgG Lab Routine Missed menses , unspecified gestational age Ordered: 11/14/2024[facility] HealthcareComment on above:Ordered: 11/14/2024SURESWAB(R) ADVANCED VAGINITIS PLUS, TMASURESWAB(R) ADVANCED VAGINITIS PLUS, TMA Pathology and Cytology Routine Vaginal discharge Ordered: 01/15/2025 [facility] Work Phone: comment on above:Ordered: 01/15/2025US Pelvis transvaginalUS OB transvaginal Imaging Routine Missed menses 11/14/2024 2:38 PM [facility] End: 95-78-3067Ti uterus 14 wk transabdl 07/[address] [facility] Work Phone: Comment on above:1 Occurrences starting 12/20/2024 until 12/20/2024 Immunizations Immunization DateImmunizationNotesCare FwczkmvpCzsivhcr87-83-2238RZEWY-68, Pfizer Purple top, DILUTE for use, 12+ yrs, 30mcg/0.3mL doseHannah Rodriguez EXTERMINATOR HELPER - [employer] Work Phone: [facility] Work Phone: [phone]-82, Pfizer Purple top, DILUTE for use, 12+ yrs, 30mcg/0.3mL doseHannah Rodriguez EXTERMINATOR HELPER - POL[employer] PRECINCT Work Phone: [facility] HospitalIitgsc23-16-2058ixlej papilloma virus vaccine, quadrivalentRomena [facility], TB00-84-6730pxtge papilloma virus vaccine, quadrivalentRomena [facility], RI45-94-3897dbjbn papilloma virus vaccine, quadrivalentC[facility] Clinic Foundation, [place] 29-37-7173gszetjfjcnmlz polysaccharide (groups A, C, Y and W-135) diphtheria toxoid conjugate vaccine (MCV4P)[facility], WJ38-95-8327 meningococcal ACWY vaccine, unspecified formulationC[facility] Clinic [facility], WD96-78-0694Qtiwiqznn A Ped/Adol (Vaqta)[facility], [place] 68-29-8173fmvhnlszl A vaccine, pediatric/adolescent dosage, 2 dose schedule Ynes Rodriguez EXTERMINATOR HELPER [facility] Work Phone: [facility] Work Phone: [phone] toxoid, reduced diphtheria toxoid, and acellular pertussis vaccine, adsorbedC[facility] Clinic Foundation, [place] 68-32-2931Sfluljoac A Ped/Adol (Vaqta)[facility], [place] 82-00-2313rgbebyqzd A vaccine, pediatric/adolescent dosage, 2 dose schedule Ynes Rodriguez EXTERMINATOR HELPER - [facility] Work Phone: bon [facility] Work Phone: [phone] virus vaccineC[facility] Clinic [facility], CC84-60-0604frzdlcmpaidmv polysaccharide (groups A, C, Y and W-135) diphtheria toxoid conjugate vaccine (MCV4P)[facility], [place] 91-68-0242vtrlhopfgd, tetanus toxoids and acellular pertussis vaccineC[facility], RZ75-59-8362xndsvrl, mumps and rubella virus vaccine [facility], EZ06-17-6702tswkroxfml vaccine, inactivated [facility], NI96-92-2579upjkrygvig, tetanus toxoids and acellular pertussis vaccineC[facility], DB43-58-3913 haemophilus influenzae type b vaccine, PRP-T conjugateC[facility], PS45-22-6361ixtsqtnbys vaccine, inactivatedC[facility], CD97-04-9886myrgepw, mumps and rubella virus vaccineMercy Health Allen Hospital, OV30-35-7755iennwfbch virus vaccineC[facility], OI94-37-7394dhaefaxdp B vaccine, pediatric or pediatric/adolescent dosageC[facility], SS53-16-0604jvdzaxtuon, tetanus toxoids and acellular pertussis vaccineC[facility], LQ01-99-5000 haemophilus influenzae type b vaccine, PRP-T conjugateC[facility], NW17-12-0576kbnpaiqfoe, tetanus toxoids and acellular pertussis vaccineC[facility], DM64-14-9814xbwdrnlrawl influenzae type b vaccine, PRP-T conjugateC[facility], AV73-51-9026 poliovirus vaccine, inactivatedC[facility], LB66-20-6480 haemophilus influenzae type b vaccine, PRP-T conjugateC[facility], BE70-38-9576pzzwhyuiph vaccine, inactivatedC[facility], XN71-64-2467xqqrbbtxte, tetanus toxoids and acellular pertussis vaccineSelect Medical [facility]on03-18-1999hepatitis B vaccine, pediatric or pediatric/adolescent dosageC[facility], NZ07-85-5544 hepatitis B vaccine, pediatric or pediatric/adolescent dosageMercy Health Allen Hospital, [place] Payers DatePayer CategoryPayerPolicy [id number] SPECIALTY BILLING [facility] [id number] 2022-Present [address] [facility] [place] [address] [id number] Health InsuranceMEDICAL MUTUAL Member Subscriber Plan / Payer (Effective 2022-Present) Name: Vinny Downey Relation to Subscriber: Spouse Name: Abhishek Downey Date of : 1996 Address: [address] [place] [id number] Payer ID: Not on file Type: Not on file Address: [facility] [address] [place] [id number] [id number] 2.840.1.674632.3.57[id number] 2.0.1.363502.3.57[id number] 2.840.1.153278.3.57[id number] 2.0.1.448714.3.57[id number] 2.840.1.258264.3.57[id number] 2.0.1.642771.3.579.2.33135-66-3976Ajjoocg8239959 2.840.1.684742.3.579.[id number] 2.840.1.876900.3.57[id number] 2.840.1.988896.3.579.2.26690-53-7644Nmxjmgq0526682 2.0.1.291561.3.579.2.51103-88-7699Ekaxdrz5261664 2.840.1.893697.3.579.2.61788-35-3616Utcjqqu3007644 2.840.1.226226.3.579.2.90744-51-0564Drdfgwb8170163 2.16.840.1.221491.3.579.2.80810-20-2932Fqzrhsk5631037 2.16.840.1.170251.3.579.2.54794-67-6718Wcnlnnu4818692 2.16.840.1.248430.3.579.[id number] 2.16.840.1.030673.3.579.2.72383-41-5643Odotmus4336558 2.16.840.1.881624.3.579.[id number] 2.16.840.1.355704.3.57[id number] 2.16.840.1.833716.3.57[id number] 2.16.840.1.373852.3.57[id number] 2.16.840.1.239497.3.57[id number] 2.16.840.1.218085.3.579.2.89591-72-0011Ukwckfq02334287 2.16840.1.155304.3.579.2.76836-98-6889Wxmugka33537007 2.16.840.1.679168.3.579.2.004478-04-4810Uzdvrfl72794338 2.16.840.1.197579.3.579.2.498671-35-4397Ajanxez69043929 2.16.840.1.909504.3.579.2.817015-85-7661Pdwdaxw50763484 2.16.840.1.917642.3.57[id number] 2.16.840.1.995193.3.579.2.793159-50-2687Morxrfr88774840 2.16.840.1.241165.3.579.2.602973-61-5606Qipioyw89784534 2.16.840.1.926814.3.579.2.259658-41-8246Uxxowkz62649102 2.16.840.1.349592.3.579.2.997489-48-3635Gdvxfpz58395203 2.16.840.1.261417.3.579.2.222409-56-8006Zticyqb79877319 2.16.840.1.380702.3.579.2.004234-42-0773Zzsfale35238715 2.16.840.1.180513.3.579.2.724329-65-4006Yleiwqv24294623 2.16.840.1.330235.3.579.2.806013-65-9287Qrbwgei5094109 2.16.840.1.611528.3.579.2.189747-36-6532Jhazood2792538 2.16.840.1.944797.3.579.2.598423-12-5186Zvlfzre4907172 2.840.1.218084.3.579.2.138065-70-3128Huogoqm2681638 2.16.840.1.248207.3.579.2.487782-86-7351Uqvr-qal56-37-6524OyvfxonPEQDM6392929 1.2.840.245628.1.13.239.2.7.3.966064.39112-69-7042Xcufqpt66509301652890-67-7847 [id number] 2.16.840.1.588758.3.579.2.593 Social History DateTypeDetailFacilityStart: 03-03-2020 End: 44-05-0361Sbzvnta smoking status NHISNever smokerMetroHealth Main Campus Medical Center: 03-03-2020 End: 81-03-2518Tmicjxk use and exposureNever usedMetroHealth Main Campus [facility] Center: 03-03-2020 End: 28-31-0124Aqonvuf intakeCurrent drinker of alcohol (finding)[facility]: 84-41-4064Zqnjdim CommentsocialMetroHealth Main Campus Medical Center: 92-46-5631Mxh Assigned At BirthNot on [facility]: 05-01-2020 End: 34-37-7495Batxrdw SDOH Fbekwsgad[address] [place] [address]: 05-01-2020 End: 68-62-9928Idijsvf SDOH Food Aztdi[address] [place] [address]: 05-01-2020 History SDOH Transport Krw[address] [place], [place] [address]Exposure to SARS-CoV-2 (event)[facility] sureDel[facility]: 05-[facility]-2024 End: 99-88-7994Iyktdpnal beverage intakeEx-drinker (finding)[facility]: 05-01-2024 End: 40-85-0374Xqutvks of Social functionBon [facility]: 05-01-2024 End: 62-83-4796Ihuyfel use panelSentara [facility]ifax [facility]: 18-80-3412Mwu hard is it for you to pay for the very basics like food, housing, medical care, and heatingNot hard at allCentra Southside Community Hospital(I/We) worried whether (my/our) food would run out before (I/we) got money to buy more.Never trueBon [facility]: 47-78-5315Uwo assigned at birthFemaleBon [facility]: 42-43-8020Ikuzei identityIdentifies as female gender (finding)[facility]: 07-05-2023 End: 95-30-6578Lfolzlfze beverage intakeLifetime non-drinker (finding)[facility] HealthcareStart: 01-71-4138HhumozzqmPEEN HealthcareHas the electric, gas, oil, or water company threatened to shut off services in your home in past 12MoNoBon Talking Media GroupStart: 61-93-5676ZjrXdtous (finding)[facility] Medical Equipment Procedure CodeEquipment CodeEquipment Original TextEquipment IdentifierDatesUse as [id number]: 01-15-2025 End: 27-94-2556Qklxbm 1 each under the skin [id number]: 04-07-2025 End: 07-16-2025 Goals DatePatient GoalDesired Activity/StatePersonal health goal Clinical Notes 03-20-2023 to 06-02-2025 Note Date & NrhmAvhcDddzcrmg76-08-9040 History of Present illness Narrative* Mukul Foy, DO - 06/02/2025 1:10 PM EST Reason [...] 11/30/2020 23 weeks gestation of ([facility]) 02/26/2025 Elevated blood sugar level 02/26/2025 Resolved Ambulatory Problems Diagnosis Date Noted Missed period 01/13/2023 Past Medical History: Diagnosis Date GDM (gestational diabetes mellitus) ([facility]) Family History[1] Social History Tobacco Use Smoking [...] nursing note reviewed. Exam conducted with a color maker dyer present. Vitals: Estimated body mass index is 38.38 kg/m as calculated from the following: Height as of 01/30/23: 5' 6 . Weight as of this encounter: 237 lb 12.8 oz. BP: 138/80 Patient's last menstrual period was 09/16/2024. Assessment/Plan Encounter Diagnosis: ICD-10-CM 1. 37 weeks gestation of ([facility]) Z3A.37 POCT urinalysis dipstick manually resulted 2. Third trimester ([facility]) Z34.93 POCT urinalysis dipstick manually resulted 3. Insulin controlled gestational diabetes mellitus (GDM) during , antepartum ([facility]) O24.414 4. Gestational diabetes mellitus (GDM), antepartum, gestational diabetes method of control unspecified ([facility]) O24.419 insulin glargine (Lantus SoloStar) 100 UNIT/ML [...] [3] No Known Allergies documented in this encounterFulton Medical Center- FultonPqcxwlcyxd03-94-3224 History of Present illness Narrative* JOSEPH Bowie [...] 11/30/2020 23 weeks gestation of ([facility]) 02/26/2025 Elevated blood sugar level 02/26/2025 Resolved Ambulatory Problems Diagnosis Date Noted Missed period 01/13/2023 Past Medical History: Diagnosis Date GDM (gestational diabetes mellitus) ([facility]) HISTORY PAST MEDICAL HISTORY SOCIAL HISTORY Past Medical History: Diagnosis Date GDM (gestational diabetes mellitus) ([facility]) Social History Tobacco Use Smoking status: Never [...] nursing note reviewed. Exam conducted with a color maker dyer present. Vitals: Estimated body mass index is 38.38 kg/m as calculated from the following: Height as of 01/30/23: 5' 6 . Weight as of this encounter: 237 lb 12.8 oz. BP: 120/80 Patient's last menstrual period was 09/16/2024. Assessment/Plan ICD-10-CM 1. Third trimester ([facility]) Z34.93 CULTURE, GROUP B STREP WITH SUSCEPTIBLITY CULTURE, GROUP B STREP WITH SUSCEPTIBLITY 2. 36 weeks gestation of ([facility]) Z3A.36 POCT urinalysis dipstick manually resulted Patient [...] behalf of: JOSEPH Bowie documented in this encounterFulton Medical Center- FultonOwdeoccxfm58-67-4970 History of Present illness Narrative* Criselda Aguirre [...] 11/30/2020 23 weeks gestation of ([facility]) 02/26/2025 Elevated blood sugar level 02/26/2025 Resolved Ambulatory Problems Diagnosis Date Noted Missed period 01/13/2023 Past Medical History: Diagnosis Date GDM (gestational diabetes mellitus) ([facility]) HISTORY PAST MEDICAL HISTORY SOCIAL HISTORY Past Medical History: Diagnosis Date GDM (gestational diabetes mellitus) ([facility]) Social History Tobacco Use Smoking status: Never [...] nursing note reviewed. Exam conducted with a color maker dyer present. Vitals: Estimated body mass index is 37.47 kg/m as calculated from the following: Height as of 01/30/23: 5' 6 . Weight as of this encounter: 232 lb 1.9 oz. BP: 110/70 Patient's last menstrual period was 09/16/2024. Assessment/Plan ICD-10-CM 1. Third trimester ([facility]) Z34.93 2. 34 weeks gestation of ([facility]) Z3A.34 POCT urinalysis dipstick manually resulted Return [...] of: Mukul Foy DO documented in this encounterFulton Medical Center- FultonKydsjhizeq29-05-1409 History of Present illness Narrative* Ceasar Li [...] 11/30/2020 23 weeks gestation of ([facility]) 02/26/2025 Elevated blood sugar level 02/26/2025 Resolved Ambulatory Problems Diagnosis Date Noted Missed period 01/13/2023 Past Medical History: Diagnosis Date GDM (gestational diabetes mellitus) ([facility]) HISTORY PAST MEDICAL HISTORY SOCIAL HISTORY Past Medical History: Diagnosis Date GDM (gestational diabetes mellitus) ([facility]) Social History Tobacco Use Smoking status: Never [...] nursing note reviewed. Exam conducted with a color maker dyer present. Vitals: Estimated body mass index is 36.7 kg/m as calculated from the following: Height as of 01/30/23: 5' 6 . Weight as of this encounter: 227 lb 6.4 oz. BP: 110/70 Patient's last menstrual period was 09/16/2024. ASSESSMENT & PLAN ICD-10-CM 1. Third trimester ([facility]) Z34.93 2. 32 weeks gestation of ([facility]) Z3A.32 POCT urinalysis dipstick manually resulted Return [...] of: Ceasar Li NP documented in this encounterFulton Medical Center- FultonJfmptwigyj65-16-8540 History of Present illness Narrative* JOSEPH Bowie [...] 11/30/2020 23 weeks gestation of ([facility]) 02/26/2025 Elevated blood sugar level 02/26/2025 Resolved Ambulatory Problems Diagnosis Date Noted Missed period 01/13/2023 Past Medical History: Diagnosis Date GDM (gestational diabetes mellitus) ([facility]) HISTORY PAST MEDICAL HISTORY SOCIAL HISTORY Past Medical History: Diagnosis Date GDM (gestational diabetes mellitus) ([facility]) Social History Tobacco Use Smoking status: Never [...] ASSESSMENT & PLAN ICD-10-CM 1. Third trimester ([facility]) Z34.93 POCT urinalysis dipstick manually resulted 2. 30 weeks gestation of ([facility]) Z3A.30 Return OB: Patient presents today for [...] behalf of: JOSEPH Bowie documented in this encounterFulton Medical Center- FultonDydugibvfi00-70-0659 History of Present illness Narrative* JOSEPH Bowie [...] 11/30/2020 23 weeks gestation of ([facility]) 02/26/2025 Elevated blood sugar level 02/26/2025 Resolved Ambulatory Problems Diagnosis Date Noted Missed period 01/13/2023 Past Medical History: Diagnosis Date GDM (gestational diabetes mellitus) ([facility]) HISTORY PAST MEDICAL HISTORY SOCIAL HISTORY Past Medical History: Diagnosis Date GDM (gestational diabetes mellitus) ([facility]) Social History Tobacco Use Smoking status: Never [...] 1. 28 weeks gestation of ([facility]) Z3A.28 POCT urinalysis dipstick manually resulted US OB follow up transabdominal approach US biophysical profile w non stress test 2. Third trimester ([facility]) Z34.93 POCT urinalysis dipstick manually resulted US OB follow up transabdominal approach US biophysical profile w non stress test 3. Dizziness R42 CBC and differential CBC and differential 4. Gestational diabetes mellitus (GDM), antepartum, gestational diabetes method of control unspecified ([facility]) O24.419 US OB follow up transabdominal approach [...] behalf of: JOSEPH Bowie documented in this encounterFulton Medical Center- FultonKucnmvcyfe76-47-3236 History of Present illness Narrative* Mukul Foy, [...] 11/30/2020 23 weeks gestation of ([facility]) 02/26/2025 Elevated blood sugar level 02/26/2025 Resolved Ambulatory Problems Diagnosis Date Noted Missed period 01/13/2023 Past Medical History: Diagnosis Date GDM (gestational diabetes mellitus) ([facility]) No family history on file. Social History [...] nursing note reviewed. Exam conducted with a color maker dyer present. Vitals: Estimated body mass index is 36.12 kg/m as calculated from the following: Height as of 01/30/23: 5' 6 . Weight as of this encounter: 223 lb 12.8 oz. BP: 100/70 Patient's last menstrual period was 09/16/2024. Assessment/Plan Encounter Diagnosis: ICD-10-CM 1. 25 weeks gestation of ([facility]) Z3A.25 POCT urinalysis dipstick manually resulted 2. Second trimester ([facility]) Z34.92 POCT urinalysis dipstick manually resulted 3. [...] of: Mukul Foy DO documented in this encounterFulton Medical Center- FultonGgaufadtil12-15-2763 History of Present illness Narrative* Ceasar Li [...] 11/30/2020 23 weeks gestation of ([facility]) 02/26/2025 Elevated blood sugar level 02/26/2025 Resolved Ambulatory Problems Diagnosis Date Noted Missed period 01/13/2023 Past Medical History: Diagnosis Date GDM (gestational diabetes mellitus) ([facility]) HISTORY PAST MEDICAL HISTORY SOCIAL HISTORY Past Medical History: Diagnosis Date GDM (gestational diabetes mellitus) ([facility]) Social History Tobacco Use Smoking status: Never [...] nursing note reviewed. Exam conducted with a color maker dyer present. Vitals: Estimated body mass index is 35.96 kg/m as calculated from the following: Height as of 01/30/23: 5' 6 . Weight as of this encounter: 222 lb 12.8 oz. BP: 110/70 Patient's last menstrual period was 09/16/2024. ASSESSMENT & PLAN ICD-10-CM 1. 23 weeks gestation of ([facility]) Z3A.23 POCT urinalysis dipstick manually [...] by Ceasar Li NP on behalf of: Muukl Foy DO documented in this encounterFulton Medical Center- FultonBmnilwcfcb46-59-0733 History of Present illness Narrative* JOSEPH Bowie [...] Date GDM (gestational diabetes mellitus) ([facility]) HISTORY PAST MEDICAL HISTORY SOCIAL HISTORY Past Medical History: Diagnosis Date GDM (gestational diabetes mellitus) ([facility]) Social History Tobacco Use Smoking status: Never [...] PLAN ICD-10-CM 1. Second trimester ([facility]) Z34.92 metFORMIN XR (Glucophage-XR) 500 MG 24 hr tablet POCT urinalysis dipstick manually resulted 2. 20 weeks gestation of ([facility]) Z3A.20 metFORMIN XR (Glucophage-XR) 500 MG 24 [...] of: Mukul Foy DO documented in this encounterFulton Medical Center- FultonLauezkbmmf47-32-2707 History of Present illness Narrative* Criselda Aguirre [...] Date GDM (gestational diabetes mellitus) ([facility]) HISTORY PAST MEDICAL HISTORY SOCIAL HISTORY Past Medical History: Diagnosis Date GDM (gestational diabetes mellitus) ([facility]) Social History Tobacco Use Smoking status: Never [...] nursing note reviewed. Exam conducted with a color maker dyer present. Vitals: Estimated body mass index is 34.19 kg/m as calculated from the following: Height as of 01/30/23: 5' 6 . Weight as of this encounter: 211 lb 12.8 oz. BP: 118/72 Patient's last menstrual period was 09/16/2024. ASSESSMENT & PLAN ICD-10-CM 1. Second trimester ([facility]) Z34.92 Alpha fetoprotein, maternal Alpha fetoprotein, maternal 2. 17 weeks gestation of ([facility]) Z3A.17 Alpha fetoprotein, maternal Alpha fetoprotein, maternal 3. Vaginal discharge N89.8 SURESWAB(R) ADVANCED VAGINITIS PLUS, TMA 4. STD exposure Z20.2 CHLAMYDIA TRACHOMATIS (GENITO/STI) Neisseria gonorrhea DNA probe, direct 5. Screening, , for anatomic survey ([facility]) Z36.89 US OB 14+ weeks anatomy scan 6. Gastroesophageal reflux in ([facility]) O99.619 omeprazole (PriLOSEC) [address] capsule K21.9 7. Gestational diabetes mellitus (GDM), antepartum, gestational diabetes method of control unspecified ([facility]) O24.419 glucose blood test strip Return OB/Annual [...] behalf of: alesha bowie documented in this encounterFulton Medical Center- FultonEjbtuledfu91-35-9131 History of Present illness Narrative* JOSEPH Bowie [...] Documented by JOSEPH Bowie documented in this encounterFulton Medical Center- FultonNcjldsulzq23-07-0983 History of Present illness Narrative* Elizabeth Ware [...] Nurse Note: Patient uncertain of doing the [place] screening. Pt was advised both labs [...] by: Elizabeth Ware MA documented in this encounterFulton Medical Center- FultonJxlgfefjor99-13-7584 History of Present illness Narrative* Elizabeth Ware [...] nursing note reviewed. Exam conducted with a color maker dyer present. Vitals: Estimated body mass index is [...] of: Mukul Foy DO documented in this encounterFulton Medical Center- FultonWabncmgbqo13-29-0146 NoteHNO ID: [id number] Author: LANG CARREON APRN.[employer] Service: ? Author Type: Nurse Practitioner Type: Progress Notes Filed: 08/06/2023 10:44 Note Text: Telemedicine Visit - Distance Health Virtual Visit Note I have communicated my name and active licensure. The patient's identity and physical location were verified at the time of this visit. Either the patient or their legal client relations representative has been informed of the risks and benefits of -- and alternatives to -- treatment through a remote evaluation and consents to proceed with the evaluation remotely. Patient seen on virtual platforms, [employer]. Location of patient: [place] History [...] - Sleep with head elevated due to cyiw-vjvqy-jzdq increases cough - Continue Flonase - Flonase: [...] person care - All questions answered Lang Carroen APRN.[facility]12-19-2023 NoteUT Electrophysiology Consult Note Reason for [...] recent labs Rajendra Sheffield MD Cardiac Electrophysiology [facility]oUnMet[facility]12-19-2023 NotePatient here for follow up event monitor. Echo was not performed that was ordered at last apt in Feb 2023 by Israel Champion CNP. Does not notice palpitations as often. Denies chest pain, SOB, and lightheadedness. Review of Systems Cardiovascular: Positive for palpitations (less often). All other systems reviewed and are negative.[facility] 03-30-2023 Note-developed anemia s/p -hgb 10.8 per recent labsUnMetroHealth Parma Medical Center09-07-2023 Note- could be related to being , anemia -monitor and echo to rule out cardiac concernUnMetroHealth [facility] Medical Center 03-30-2023 Note- takes sertraline 50 mg dailyUnMetroHealth [facility] Medical Center 03-30-2023 Note- 30-day event monitor - we will hold off on starting medication until follow-upUnMetroHealth [facility] Medical Center08-28-2023 NoteNew patient here to establish [...] headaches. All other systems reviewed and are negative.[facility] 03-20-2023 NoteUT Electrophysiology Consult Note [...] images are attached to (more content not included)...[facility] CenterEvaluation [facility]* Diagnosis Frequent UTI Urinary tract infection, site not specified documented in this encounter [employer] Phone: evaluation note* Diagnosis Amenorrhea Absence of menstruation documented in this encounter [employer] Phone: evaluation note* Diagnosis Elevated liver enzymes Nonspecific elevation of levels of transaminase or lactic acid dehydrogenase (LDH) Mixed hyperlipidemia documented in this encounter [facility] note* Diagnosis Well woman exam with routine [...] unspecified fetus documented in this encounter [facility]aludel[facility] note* Diagnosis Second trimester ([facility] state, incidental 17 weeks gestation of ([facility]) Vaginal discharge Leukorrhea, not specified as infective STD exposure Screening, , for anatomic survey ([facility]) Encounter for anatomic survey Gastroesophageal reflux in ([facility]) Gestational diabetes mellitus (GDM), antepartum, gestational diabetes method of control unspecified([facility]) [facility]* Diagnosis Second trimester ([facility]) state, incidental 20 weeks gestation of ([facility]) documented in this encounter [facility]* Diagnosis 23 weeks gestation of ([facility]) Elevated blood sugar level Other abnormal glucose Gastroesophageal reflux disease without esophagitis Esophageal reflux documented in this encounter [facility]* Diagnosis 25 weeks gestation of ([facility]) Second trimester ([facility]) state, incidental Gastroesophageal reflux disease without esophagitis Esophageal reflux documented in this encounter [facility]* Diagnosis 28 weeks gestation of ([facility]) Third trimester ([facility]) state, incidental Dizziness Dizziness and giddiness Gestational diabetes mellitus (GDM), antepartum, gestational diabetes method of control unspecified([facility]) History of miscarriage Personal history [...] in this encounter [facility]* Diagnosis 37 weeks gestation of ([facility]) Third trimester ([facility]) state, incidental Insulin controlled gestational diabetes mellitus [...] TRANSVAGINAL Mukul Foy MD [address] [place] [address] Phone: tel: Referral IDStatusReasonStart DateExpiration DateVisits RequestedVisits [id number]/29/20255/ [facility] Health Assessments Diagnosis Screening for cervical cancer Screening for malignant neoplasm of the cervix Encounter for annual routine gynecological examination Diagnosis Encounter for screening for HIV Other fatigue Wellness examination Advance Directives TypeDate RecordedPatient RepresentativeExplanationAdvance Directives and Living WillPower of AttorneyTypeDate RecordedPatient RepresentativeExplanationACP- Advance DirectiveACP-Power of AttorneyTypeDate RecordedPatient Supervisor Beet End ExplanationACP-Advance DirectiveACP-Power of Estate Conservator Summary Purpose Family History No Family History Records FoundNo Family History Records FoundNo Family History Records FoundNo Family History Records FoundNo Family History Records FoundNo Family History Records FoundNo Family History Records Found Reason for Referral StatusReasonSpecialtyDiagnoses / ProceduresReferred By ContactReferred To ContactClosedRadiology Diagnoses Frequent UTI Procedures US RENAL COMPLETE Lorena Ricks EXTERMINATOR HELPER - [employer] [address] [place] [address] Additional Source Comments INFORMATION SOURCE (unrecogn ized section and content) DATE CREATED AUTHOR 10/14/2020 [facility] DATE CREATED AUTHOR AUTHOR'S ORGANIZ ATION 09/26/2021 [facility] DATE CREATED AUTHOR AUTHOR'S ORGANIZ ATION 12/30/2022 [facility] DATE CREATED AUTHOR AUTHOR'S ORGANIZ ATION 08/03/[address] [facility] DATE CREATED AUTHOR AUTHOR'S ORGANIZ ATION 08/07/2023 [facility] DATE CREATED AUTHOR AUTHOR'S ORGANIZ ATION 01/09/2025 [facility] DATE CREATED AUTHOR AUTHOR'S ORGANIZ ATION 06/03/2025 [facility] EPIC Reason for Visit (unrecogniz ed section and content) StatusReasonSpecialtyDiagnoses / ProceduresReferred By ContactReferred To ContactClosedRadiology Diagnoses Frequent UTI Procedures US RENAL COMPLETE Lorena Ricks EXTERMINATOR HELPER - [employer] [address] [place] [address] ReasonCommentsGynecologic ExamReasonCommentsAmenorrheaReasonCommentsRoutine VisitReasonCommentsRoutine VisitSTI Screening Care Teams (unrecognized sec tion and content) Team MemberRelationshipSpecialtyStart DateEnd Date Ynes Rodriguez APRN - [employer] [address] [place] [address] PCP - GeneralFamily Nurse Igvfirrenxza47/12/20Team MemberRelationshipSpecialty Start DateEnd Date Ynes Rodriguez APRN - [employer] [address] [place] [address] PCP - GeneralFamily Nurse Wpukgnhoxwyi36/12/20Team MemberRelationshipSpecialty Start DateEnd Date Ynes Rodriguez, EXTERMINATOR HELPER - [facility] [address] [place] [address] PCP - GeneralFamily Nurse Practitioner08/02/22Team MemberRelationshipSpecialty Start DateEnd Date Ynes Rodriguez, EXTERMINATOR HELPER - [employer] [address] [place] [address] PCP - GeneralFamsly Nurse Practitioner08/02/22Te MemberRelationshipSpecialty Start DateEnd Date Ynes Rodriguez, EXTERMINATOR HELPER - [facility] [address] [place] [address] PCP - GeneralFamily Nurse Practitioner08/02/22 FOR RECORDS [...] THE PRIMARY CLINICAL RECORDS. [facility] elicit [facility]. provides no warranty or guarantee of the accuracy or completeness of information in this document.
[2025-06-04 16:53] VITALS: BP 141/84; PULSE 97
== END 2025-06-04 17:35 | disposition home or self-care (01) ==
LOC: US 16:00 → FBC 16:05
PROVIDERS: PCP Nurse Practitioner Women's Health; Visit Provider Obstetrics & Gynecology
DX: O24.419 Gestational diabetes mellitus in pregnancy, unspecified control (principal); Z3A.37 37 weeks gestation of pregnancy
CPT/HCPCS: 76818

== ENCOUNTER 2025-06-07 09:21 | Outpatient (OUT) | payer OTHER, SELFPAY ==
--- OUTSIDE RECORDS SUMMARY | 2025-06-07 09:24 | XMS_ITS | CCD ---
Author Organization [facility] CliniSywv Care Team Providers Care Alternative Medicine Practitioner Name Role Phone Jannette Peña I Primary Care Provider [phone] Ynes Rodriguez Primary Care Provider [phone] [facility] Primary Care Provide r LAW, MUKUL R Admitting Unavailable LAW, MUKUL R Primary Care Unavailable LAW, MUKUL R Admitting Unavailable LAW, MUKUL R Primary Care Unavailable LAW, MUKUL R Admitting Unavailable LAW, MUKUL R Primary Care Unavailable BERTO LIVE Admitting Unavailabl e LAW, MUKUL R Primary Care Unavailable Fede TYPING CHECKER - CALLIOPE PLAYER, Ynes Conner Primary Care Provide r Unavailable Primary Care Provider Unavailabl e LAW ., DR DE LA TORRE Attending Unavailable MISC, DR YAÑEZ Primary Care Unavailable [place], DR YELENA Henao Consulting Unavailable LAW ., [...] Attending Unavailable LAW ., DR DE LA TRORE Admitting Unavailable LAW ., DR DE LA TORRE Admitting Unavailable LAW ., DR DE LA TORRE Consulting Unavailable LAW ., DR DE LA TORRE Attending Unavailable MISC, DR YAÑEZ Primary Care Unavailable [place], DR YELENA Henao Consulting Unavailable LAW ., [...] mg oral tablet (1 source)HMG-CoA Reductase InhibitorStart: 46-78-7783yuxg 1 tablet by mouth once dailyatorvastatin (LIPITOR) 10 MG tablet Take 1 tablet by mouth daily 30 tablet 5 02/20/2024 Activecephalexin 500 mg oral capsule (4 sources)Cephalosporin AntibacterialStart: 04-03-2025 End: 45-52-5617bokf 1 capsule by mouth in the morning, [...] mg oral tablet (8 sources)Histamine-1 Receptor AntagonistStart: 84-24-7156xqek 1 tablet by mouth once dailycetirizine (ZYRTEC) 10 MG tablet Take 1 tablet by mouth daily 90 tablet 3 03/12/2021 ActiveStart: 93-27-6797exvw 1 tablet by mouth once daily cetirizine (ZYRTEC) 10 MG tablet Take 1 tablet by mouth daily 90 tablet 3 06/29/2020 Activedrospirenone 4 mg oral tablet (1 source)ProgestinStart: 00-01-0655tqzd 1 tablet by mouth once daily Drospirenone (SLYND) 4 MG TABS Indications: Irregular menses Take 1 tablet by mouth daily 84 tablet4 05/12/2021 Activedrospirenone 3 mg / ethinyl estradiol 0.03 mg oral tablet (9 sources)Progestin, EstrogenStart: 19-20-1383UCEJI 3-0.03 MG TABS Indications: Irregular menses TAKE 1 TABLET DAILY 84 tablet 0 05/03/2021 ActiveStart: 70-69-2519crqc 1 tablet by mouth once dailydrospirenone-ethinyl estradiol (CHANDANA 28) 3-0.03 MG TABS Indications: Irregular menses Take 1 tablet by mouth daily 3 packet 4 03/03/2020 ActiveEthinyl Estradiol / Ferrous fumarate / Norethindrone (6 sources)EstrogenStart: 43-47-6284HXBAM FE 24 1-20 MG-MCG(24) TABS Indications: DUB (dysfunctional uterine bleeding) TAKE 1 TABLET DAILY 84 tablet 1 08/27/2018 ActiveStart: 79-87-3325kfvo 1 tablet by mouth once dailyNorethin David-Eth Estrad-FE 1-20 MG-MCG(24) TABS Indications: Irregular menses Take 1 tablet by mouth daily 28 tablet 12 05/04/2018 ActiveStart: 47-58-6899nsgi 1 tablet by mouth once dailyNorethin David-Eth Estrad-FE ( 24) 1-20 MG- MCG(24) TABS Indications: Irregular menses Take 1 tablet by mouth daily 84 tablet 3 07/21/2017 Activefexofenadine / Pseudoephedrine (2 sources)alpha-Adrenergic Agonist, Histamine-1 Receptor Antagonist Fexofenadine-Pseudoephedrine (JOSÉ MIGUEL-D PO) Take by mouth 0 Activefluconazole 150 mg oral tablet (1 source)Azole AntifungalStart: 84-20-5357lkxn 1 tablet by mouth once daily as [...] pen injector (20 sources)Insulin AnalogStart: 06-02-2025 End: 99-88-4882eeiubab glargine (Lantus SoloStar) 100 UNIT/ML pen Indications: Hyperglycemia Inject 17 Units underthe skin at bedtime FILL ACCORDING TO INSURANCE COVERAGE 3 mL 06/02/2025 07/02/2025 ActiveStart: 05-14-2025 End: 14-73-4969hfjpvqj glargine (Lantus SoloStar) 100 UNIT/ML pen Indications: Hyperglycemia Inject 15 Units underthe skin at bedtime FILL ACCORDING TO INSURANCE COVERAGE 3 mL 05/14/2025 06/02/2025 Discontinued (Dose adjustment) Start: 04-07-2025 End: 51-44-9764flvnts 10 [IU] by subcutaneous injection at bedtimeinsulin glargine (Lantus SoloStar) 100 UNIT/ML pen Indications: Hyperglycemia Inject 10 Units underthe skin at bedtime FILL ACCORDING TO INSURANCE COVERAGE 3 mL 04/07/2025 05/14/2025 Discontinued (Reorder)loratadine 10 mg oral capsule (2 sources)take 1 capsule by mouth once dailyloratadine (CLARITIN) 10 MG capsule Take 10 mg by mouth daily 0 Lmquvr55 hr metFORMIN hydrochloride 500 mg extended release oral tablet (20 sources)BiguanideStart: 02-11-2025 End: 62-46-5085vrqh 2 tablets by mouth every twenty-four hours at mealtime metFORMIN XR (Glucophage-XR) 500 MG 24 hr tablet Indications: Second trimester ([facility]) , 20 weeks gestation of ([facility]) Take 2 tablets (1,000 mg) by mouth in the evening. Take with meals 60 tablet 5 02/11/2025 08/10/2025 ActiveStart: 11-05-2024 End: 68-88-2097bjbt 1 tablet by mouth every twenty-four hours in the morning metFORMIN XR (Glucophage-XR) 500 MG 24 hr tablet Take 1,000 mg by mouth in the morning and 1,000 mgin the evening. 11/05/2024 02/11/2025 Discontinued (Reorder) Start: 11-05-2024 End: 36-48-1751kvpESALWC (GLUCOPHAGE-XR) 500 MG extended release tablet Indications: BMI 37.0-37.9, adult , Class 2 obesity with body mass index (BMI) of 37.0 to 37.9 in adult, unspecified obesity type, unspecifiedwhether serious comorbidity present TAKE 2 TABLETS BY MOUTH IN THE MORNING AND AT BEDTIME 120 tablet 5 11/05/2024 05/04/2025 ActiveStart: 04-26-2024 End: 70-41-5045jznOPHMFX (GLUCOPHAGE-XR) 500 MG extended release tablet Indications: BMI 37.0-37.9, adult , Class 2 obesity with body mass index (BMI) of 37.0 to 37.9 in adult, unspecified obesity type, unspecifiedwhether serious comorbidity present Take 2 tablets by mouth in the morning and at bedtime 360 tablet 1 04/26/2024 10/23/2024 Activemetoclopramide 10 mg oral tablet (20 sources)Dopamine-2 Receptor AntagonistStart: 03-12-2025 End: 05-94-4070llkjqdpkcvlxmh (Reglan) 10 MG tablet Indications: Gastroesophageal reflux [...] 50 mg oral capsule (4 sources)Nitrofuran AntibacterialStart: 63-57-9663ykkq 1 capsule by mouth once dailynitrofurantoin (MACRODANTIN) 50 MG capsule Indications: Recurrent UTI Take 1 capsule by mouth nightly 30 capsule 0 03/03/2020 Activepantoprazole 40 mg delayed release oral tablet (20 sources)Proton Pump InhibitorStart: 02-26-2025 End: 84-17-1882wrau 1 tablet by mouth before mealtimepantoprazole (Protonix) 40 MG EC tablet Indications: 23 weeks gestation of ([facility]) , Elevated blood sugar level , Gastroesophageal reflux disease without esophagitis Take 1 tablet (40 mg)by mouth in the morning. Take before meals. Do not crush, chew, or split. 30 tablet 11 02/26/2025 02/26/2026 Activephentermine hydrochloride 37.5 mg oral tablet (1 source)Sympathomimetic Amine AnorecticStart: 05-01-2024 End: 90-63-1796ists 37-37.9 tablets by mouth once dailyphentermine (ADIPEX-P) [...] mg oral capsule (12 sources)Start: 04-02-2025 End: 63-36-9313bnpv 1 capsule by mouth once dailyiron polysaccharides (ProFe) 391.3 (180 Fe) MG capsule Indications: Dizziness Take 1 capsule (391.3mg) by mouth Daily 30 capsule 6 04/02/2025 05/02/2025 ActiveProbiotic Product (PROBIOTIC ADVANCED PO) (6 sources)Probiotic Product (PROBIOTIC ADVANCED PO) Take by mouth Active Probiotic Product (PROBIOTIC ADVANCED PO) Take by mouth 0 ActiveProgesterone (1 source)ProgesteroneStart: 79-18-6699Yhdstoihvrtw [address] 200 mg vaginally nightly 10/16/2024 ActiveProgesterone 200 MG suppository (2 sources)Start: 11-14-2024 End: 18-13-8533Hppnnzgsgyzi 200 MG suppository Indications: History of miscarriage Insert 200 mg into the vagina at bedtime Insert suppository vaginally every night at bedtime until 12 weeks gestation 30 suppository 2 11/14/2024 12/14/2024 ActiveStart: 10-16-2024 End: 90-24-8092Spiwptdvfmbf 200 MG suppository Indications: History of miscarriage Insert 200 mg into the vagina at bedtime Insert suppository vaginally every night at bedtime until 12 weeks gestation 30 suppository 3 10/16/2024 11/14/2024 Discontinued (Reorder)sertraline 25 mg oral tablet (20 sources)Serotonin Reuptake InhibitorStart: 01-36-0359czzo 1 tablet by mouth once dailysertraline (ZOLOFT) 25 MG tablet Take 1 tablet by mouth daily 30 tablet 5 11/12/2024 ActiveStart: 61-54-4943epac 1 tablet by mouth once daily in the morningsertraline (Zoloft) 50 MG tablet Indications: Anxiety, generalized TAKE 1 TABLET BY MOUTH EVERY DAYIN THE MORNING 30 tablet 3 10/25/2024 Active Start: 84-82-2178birj 1 tablet by mouth once daily in the morningsertraline (Zoloft) 50 MG tablet Indications: Anxiety, generalized (CMS/HCC) TAKE 1 TABLET BY MOUTHEVERY DAY IN THE MORNING 30 tablet 3 06/27/2024 ActiveStart: 10-17-2023 take 1 tablet by mouth once dailysertraline (ZOLOFT) 50 MG tablet Indications: Anxiety Take 1 tablet by mouth daily 30 tablet 10/17/2023 ActiveStart: 88-91-3783aglf 1 tablet by mouth once dailysertraline (ZOLOFT) 25 MG tablet Indications: Anxiety Take 1 tablet by mouth daily 90 tablet 3 03/29/2022 Active Start: 52-42-9117tbyh 1 tablet by mouth once dailysertraline (ZOLOFT) 25 MG tablet Take 1 tablet by mouth daily 90 tablet 3 03/12/2021 ActiveStart: 09-75-9708potg 1 tablet by mouth once dailysertraline (ZOLOFT) 50 MG tablet Take 1 tablet by mouth daily 30 tablet 2 08/17/2020 Activesulfamethoxazole 800 mg / trimethoprim 160 mg oral tablet (2 sources)Dihydrofolate Reductase Inhibitor Antibacterial, Sulfonamide AntimicrobialStart: 99-89-9081fdrt 1 tablet by mouth every twelve hours sulfamethoxazole-trimethoprim (BACTRIM DS;SEPTRA DS) 800-160 MG per tablet TAKE 1 TABLET BY MOUTH EVERY 12 HOURS FOR 7 DAYS 0 02/24/2020 ActiveTirzepatide (MOUNJARO) 2.5 MG/0.5ML SOPN SC injection (1 source)Start: 83-27-6611Uccqvclzggr (MOUNJARO) 2.5 MG/0.5ML SOPN SC injection Indications: Mixed hyperlipidemia , BMI 37.0-37.9, adult , Class 2 obesity with body mass index (BMI) of 37.0 to 37.9 in adult, unspecified obesity type, unspecified whether serious comorbidity present Inject 0.5 mLs into the skin once a week 4 mL 1 05/01/2024 ActivetraZODone hydrochloride 50 mg oral tablet (1 source)Serotonin Reuptake InhibitorStart: 30-86-7021cdna 0.5 tablet by mouth once dailytraZODone (DESYREL) 50 MG tablet Take 0.5 tablets by mouth nightly 30 tablet 2 05/01/2020 Active Completed/Discontinued Medications MedicationDrug Class(es)DatesSig (Normalized)Sig (Original)norethindrone 0.35 mg oral tablet (2 sources)Start: 03-10-2023 End: 48-90-9200ayil 1 tablet by mouth in the morningnorethindrone (Micronor) 0.35 MG tablet Indications: General counseling and advice on contraceptive management Take 1 tablet (0.35 mg) by mouth in the morning. 28 tablet 11 03/10/2023 07/15/2024 Discontinued (Therapy completed)omeprazole 20 mg delayed release oral capsule (8 sources)Proton Pump InhibitorStart: 01-15-2025 End: 89-97-8945bgav 1 capsule by mouth before mealtimeomeprazole (PriLOSEC) [address] capsule Indications: Gastroesophageal Reflux Disease , Heartburn Take 1 capsule (20 mg) by mouth in the morning. Take before meals. Do not crush or chew. 30 capsule 3 01/15/2025 02/26/2025 Discontinued (Formulary change) Problems Active Problems Problem ClassificationProblemDateDocumented DateEpisodic/Chronic Administrative/social admission (4 sources)Dietary counseling and surveillance; Translations: [DIETARY COUNSELING AND SURVEILLANCE]Onset: 90-62-3294OpgcfnhiGmlsdry disorders (20 sources)Anxiety; Translations: [Anxiety disorder, unspecified]Onset: 748772-06-9234XwlaiprKqoulklujm associated with dizziness or vertigo (2 sources)Dizziness; Translations: [Dizziness and giddiness]72-59-0249Gawwzryl Deficiency and other anemia (2 sources)Anemia; Translations: [Anemia, unspecified]24-61-6169UdooqciwKetqnwgp or abnormal glucose tolerance complicating ; childbirth; or the puerperium (16 sources)Gestational diabetes mellitus in , unspecified control; Translations: [Gestational diabetes mellitus complicating ]Onset: 552330-25-8215DpybhockJycembngx of lipid metabolism (7 sources)Mixed hyperlipidemia; Translations: [Mixed hyperlipidemia]Onset: 755776-10-9779KkisepeGtiytoijar disorders (6 sources)Gastroesophageal reflux disease; Translations: [Gastro-esophageal reflux disease without esophagitis]Onset: hronic Genitourinary symptoms and ill-defined conditions (2 sources)Urinary symptoms ; Translations: [Unspecified symptoms and signs involving the genitourinary system]49-15-0233YffdmamwFycczggtyv during ; abruptio placenta; placenta previa (1 source)Other antepartum hemorrhage, first trimester; Translations: [Other antepartum hemorrhage, first trimester]Onset: 21-36-9812AmhrtnpnYmqoqptcuzqsy and screening for infectious disease (4 sources)Encounter for screening for infections with a predominantly sexual mode of transmission; Translations: [Encounter for screening for human papillomavirus (HPV)]Onset: 592581-11-2176VcpfxckrWvurxqjhmovbk mental health disorders (20 sources)Insomnia disorder related to another mental disorder; Translations: [Insomnia due to other mental disorder]Onset: 05-02-2020 Resolved: 572962-77-5542HneyxvqKrzuw complications of (4 sources)Maternal care for excessive growth, third trimester, not applicable or unspecified; Translations: [MAT CARE EXCSS FTL GRTH 3RD TRI UNS] Onset: 67-13-8555NmqrazzqQxqkg complications of (3 sources)Maternal care for excessive growth, unspecified trimester, not applicable or unspecified; Translations: [MAT CARE EXCSS FTL GRTH UNS TRI UNS] Onset: 95-63-6840XcmveajyIjzrw complications of (2 sources)Gastroesophageal reflux disease in ; Translations: [Diseases of the digestive system complicating , unspecified trimester] 64-95-6152FjqczpyxCxzbn female genital disorders (20 sources)Pain in female genitalia on intercourse; Translations: [Unspecified dyspareunia]Onset: 11-30-2020 Resolved: 112061-13-3646RtonqbuDsnmx female genital disorders (2 sources)Vaginal discharge; Translations: [Other specified noninflammatory disorders of vagina]61-55-3526NqgaqihrYyuql injuries and conditions due to external causes (4 sources)Encounter for examination and observation following other accident; Translations: [ENC EXAM AND OBSERVATION FOLLOW OTH ACC]Onset: 60-61-7713Wvarrhim Other liver diseases (3 sources)Steatosis of liver; Translations: [Fatty (change of) liver, not elsewhere classified]Onset: 595871-41-3888WrhccfzDieyi nutritional; endocrine; and metabolic disorders (1 source)Body mass index 30+ - obesity; Translations: [Body mass index (BMI) 37.0-37.9, adult]Onset: 841578-10-5996GcalwsgMyfqj nutritional; endocrine; and metabolic disorders (3 sources)Obesity; Translations: [Class 2 obesity with body mass index (BMI) of 37.0 to 37.9 in adult]Onset: 060157-37-6650HxeyylhHcsli and delivery including normal (20 sources)Encounter for supervision of normal , unspecified, unspecified trimester; Translations: [ state, incidental]Onset: 44-47-1083QcwgedcqLzdsw screening for suspected conditions (not mental disorders or infectious disease) (20 sources)Encounter for other screening follow-up; Translations: [Encounter for screening, unspecified]Onset: 28-24-2491BprpjcfdIfsjb upper respiratory disease (8 sources)Seasonal allergic rhinitis; Translations: [Other seasonal allergic rhinitis]Onset: 052877-87-9453KtkhmteJyvqluiqapidhe and other problems of amniotic cavity (4 sources)Subchorionic hematoma; Translations: [Other specified disorders of amniotic fluid and membranes, first trimester, not applicable or unspecified] Onset: 692357-91-0485KlwcjkacJttdncpm codes; unclassified (1 source)34 weeks gestation of ; Translations: [34 WEEKS GESTATION OF ]Onset: 31-24-5929TahmazisAkfaddqd codes; unclassified (1 source)33 weeks gestation of ; Translations: [33 WEEKS GESTATION OF ]Onset: 37-36-2157EqktzfyyZlwyijyq codes; unclassified (1 source)Gestation period, 8 weeks; Translations: [8 weeks gestation of ]10-27-8382XmxacdncPgjdtsvl codes; unclassified (3 sources)H/O: miscarriage; Translations: [Personal history of other complications of , childbirth and the puerperium]92-18-9288Nyiijpwu Residual codes; unclassified (2 sources)Gestation period, 12 weeks; Translations: [12 weeks gestation of ]73-58-8881OrszqwttZthrupls codes; unclassified (2 sources)Gestation period, 17 weeks; Translations: [17 weeks gestation of ]39-49-5902JxathtcjKqzgtgsy codes; unclassified (2 sources)Gestation period, 20 weeks; Translations: [20 weeks gestation of ]55-19-0521FnvvzkmyNjymahlr codes; unclassified (2 sources)Gestation period, 25 weeks; Translations: [25 weeks gestation of ]86-29-6457DsvbpqdyOzdosmft codes; unclassified (2 sources)Gestation period, 28 weeks; Translations: [28 weeks gestation of ]86-98-9859VbeffwhcCmxhdvna codes; unclassified (2 sources)Gestation period, 30 weeks; Translations: [30 weeks gestation of ]40-65-1268YvnufigmXesgzauv codes; unclassified (2 sources)Gestation period, 32 weeks; Translations: [32 weeks gestation of ]63-24-1231CkykgcebAdjibyxy codes; unclassified (2 sources)Gestation period, 34 weeks; Translations: [34 weeks gestation of ]06-79-2479HokkthugRnyybzkj codes; unclassified (2 sources)Gestation period, 36 weeks; Translations: [36 weeks gestation of ]39-21-0354JrgaigggCmydmjbb codes; unclassified (2 sources)Gestation period, 37 weeks; Translations: [37 weeks gestation of ]46-38-9300ZijgbajhLpgkralyutor (1 source)Cancer cervix screening status; Translations: [Screening for cervical cancer]Unclassified (3 sources)Patient encounter status; Translations: [Encounter for annual routine gynecological examination]Unclassified (20 sources)OB RemindersOnset: 853544-71-8628 Past or Other Problems Problem ClassificationProblemDateDocumented DateEpisodic/ChronicCardiac dysrhythmias (2 sources)Palpitations; Translations: [Palpitations]Onset: 83-50-8438Uxqnehrf Deficiency and other anemia (3 sources)Iron deficiency anemia; Translations: [Iron deficiency anemia, unspecified]Onset: 995339-65-2204QkkfqacfFvwumisgvu and other anemia (1 source)Iron deficiency anemia, unspecified; Translations: [Iron deficiency anemia, unspecified]Onset: 62-60-7775PkzxxbybLikufzsv mellitus without complication (20 sources)Other abnormal glucose; Translations: [Abnormal glucose level]Onset: 51-49-0057RfuattncQodbdqc and fatigue (20 sources)Fatigue; Translations: [Other fatigue]Onset: EpisodicMenstrual disorders (20 sources)Amenorrhea; Translations: [Amenorrhea, unspecified]Onset: 06-23-2022 Resolved: 16-99-0783XnwgfniWzmlf disorders of stomach and duodenum (20 sources)Indigestion; Translations: [Functional dyspepsia]Onset: 01-13-2023 24-08-1671ZezctwstOsxwt female genital disorders (4 sources)Other specified noninflammatory disorders of vagina; Translations: [OTH SPEC NONINFLAMMATORY D/O VAGINA]Onset: 62-29-3248KjspzacuWtlnv gastrointestinal disorders (20 sources)Heartburn; Translations: [Heartburn]Onset: EpisodicOther liver diseases (4 sources)Elevated liver enzymes level; Translations: [Abnormal levels of other serum enzymes]Onset: 880176-82-9671NjbmhglwWnbgd liver diseases (1 source)Abnormal levels of other serum enzymes; Translations: [Abnormal levels of other serum enzymes]Onset: 37-17-9608HbqprrnbGvffi skin disorders (3 sources)Acne; Translations: [Acne, unspecified]Onset: 10-17-2023 Resolved: 556741-89-0590PliibqtxQtlbx upper respiratory infections (2 sources)Sore throat symptom; Translations: [Acute pharyngitis, unspecified] Onset: 09-10-2024 Resolved: 291331-44-5885ZhsrnfqeBwbveolg codes; unclassified (1 source)Family history of other diseases of the digestive system; Translations: [Family history of other diseases of the digestive system]Onset: 06-02-1826EkjvtjtrRiytjpyj codes; unclassified (20 sources)Gestation period, 23 weeks; Translations: [23 weeks gestation of ]Onset: 607806-42-7660KdsyumwsCaewnkq tract infections (20 sources)Recurrent urinary tract infection; Translations: [Urinary tract infection, site not specified]Onset: 11-30-2020 Resolved: 73-90-6006Ixhydchd Results Test NameValueInterpretationReference RangeFacilitySTREP GP B CULTURE+RFLXon 47-56-8956YSMZM GP B CULTURE+RFLX Strep Gp B Culture+Rflx NOM[facility] HealthcareSTREP GP B CULTURE+RFLXNegativeNOMS HealthcareSTREP GP B CULTURE+RFLXCenters for Disease Control and Prevention (CDC) andNOWA Healthcare STREP GP B CULTURE+RFLXAmerican Congress of [...] GP B CULTURE+RFLXPerformed at: CB - [facility] HealthcareSTREP GP B CULTURE+[id number] [place], [place] [id number] HealthcareSTREP GP B CULTURE+RFLXLab Director: Elian Mccray PhD, Phone: [phone] HealthcareCLINISYNCNOMS HealthcareUrinalysis macro (dipstick) panel (U)on 07-14-8345Asuaptqik, UANegativeNegative - 4(70) +++ mg/dLNOMS HealthcareBlood, UANegativeNegative [...] mg/dLNOMS HealthcareNOMS HealthcareUS OB BPP W NON-STRESSon 51-36-20[address] [address] Ultrasound Report Signed Patient: VINNY DOWNEY MR#: [id number] : 2000 Acct:[id number] Age/Sex: 24 / F ADM Date: 05/28/25 Loc: US Attending Dr: Mukul Foy D.O. Ordering Physician: Mukul Foy D.O. Date of Service: 05/28/25 Procedure(s): US OB BPP w non-stress Accession Number(s): [id number] cc: Mukul Foy D.O.; Ynes Rodriguez NP [facility] [place] [id number] Patient Name: VINNY DOWNEY MRN: [id number] date: 2000 Sex: F Assigned Patient Location: US Current Patient Location: Accession/Order Number: [id number] Exam Date: 05/28/2025 16:05 Report Date: 05/29/2025 [...] Flores M.D. 05/29/2025 10:10 AM Dictation Location: [place] [address] Electronically authenticated by: [id number] Y Date: 05/29/2025 10:10 Dictated By: Criselda Flores M.D. Signed By: 05/29/25 1013 DD/ 1010 TD/TT: Trackmobile Operator:MILYHRadiology, Radiologist, - 05/29/2025 [place] [address] Ultrasound Report Signed Patient: VINNY DOWNEY MR#: [id number] : 2000 Acct:[id number] Age/Sex: 24 / F ADM Date: 05/28/25 Loc: US Attending Dr: Mukul Foy D.O. Ordering Physician: Mukul Foy D.O. Date of Service: 05/28/25 Procedure(s): US OB BPP w non-stress Accession Number(s): [id number] cc: Mukul Foy D.O.; Ynes Rodirguez NP [place] [address] Patient Name: VINNY DOWNEY MRN: [id number] date: 2000 Sex: F Assigned Patient Location: US Current Patient Location: US Accession/Order Number: [id number] Exam Date: 05/28/2025 16:05 Report Date: 05/29/2025 [...] Flores M.D. 05/29/2025 10:10 AM Dictation Location: [place] [address] Electronically authenticated by: [id number] Y Date: 05/29/2025 10:10 Dictated By: Criselda Flores M.D. Signed By: 05/29/25 1013 DD/ 1010 TD/TT: Trackmobile Operator: DIANE HealthcareRadiology Study observation (narrative)NOMS HealthcareUS OB BPP W NON-STRESSOrdered By: Radiologist Radiology on 49-90-5082[facility] Work Phone: US OB FOLLOW UP TRANSABDOMINAL APPROACHon 89-77-9257CU OB FOLLOW UP TRANSABDOMINAL APPROACHFINDINGS: Comparison February [...] Delivery: 06/23/25 Gestational Age as of 05/14/2025: 34t7nIjayfsjntg macro (dipstick) panel (U)on 86-51-9280Wttypdlqd, UANegativeNegative - 4(70) +++ mg/dLNOMS HealthcareBlood, UANegativeNegative [...] mg/dLNOMS HealthcareNOMS HealthcareUS OB BPP W NON-STRESSon 20-28-1863[place] [address] Ultrasound Report Signed Patient: VINNY DOWNEY MR#: [id number] : 2000 Acct:[id number] Age/Sex: 24 / F ADM Date: 05/21/25 Loc: US Attending Dr: Mukul Foy D.O. Ordering Physician: Mukul Foy D.O. Date of Service: 05/21/25 Procedure(s): US OB BPP w non-stress Accession Number(s): [id number] cc: Mukul Foy D.O.; Ynes Rodriguez [place] [address] Patient Name: VINNY DOWNEY MRN: [facility]:[id number] date: 2000 Sex: F Assigned Patient Location: [facility] Current Patient Location: Accession/Order Number: [id number] Exam Date: 05/21/2025 16:12 Report Date: 05/21/2025 19:56 At the request of: MUKUL FOY DO Procedure: US OB BPP w non-stress Ultrasound biophysical profile INDICATION: Gestational diabetes COMPARISON: 05/07/2025 FINDINGS/IMPRESSION:: Fetus cephalic position. 8/8 score biophysical profile. heart rate 139 beats per minutes. JAMAL 19.1 cm . Impression dictated by: Chevy Moreland M.D. 05/21/2025 7:56 PM Dictation Location: [place] [address] Electronically authenticated by: [id number] Y Date: 05/21/2025 19:56 Dictated By: Chevy Moreland M.D. Signed By: 05/21/251958 DD/ 55 TD/TT: Trackmobile Operator:JAMILAHadiolSkip chaves, - 05/21/2025 [place] [address] Ultrasound Report Signed Patient: VINNY DOWNEY MR#: [id number] : 2000 Acct:[id number] Age/Sex: 24 / F ADM Date: 05/21/25 Loc: US Attending Dr: Mukul Foy D.O. Ordering Physician: Mukul Foy D.O. Date of Service: 05/21/25 Procedure(s): US OB BPP w non-stress Accession Number(s): [id number] cc: Mukul Foy D.O.; Ynes Rodriguez NP The [place] [address] Patient Name: VINNY DOWNEY MRN: [facility]:[id number] date: 2000 Sex: F Assigned Patient Location: [facility] Current Patient Location: Accession/Order Number: [id number] Exam Date: 05/21/2025 16:12 Report Date: 05/21/2025 19:56 At the request of: MUKUL FOY DO Procedure: US OB BPP w non-stress Ultrasound biophysical profile INDICATION: Gestational diabetes COMPARISON: 05/07/2025 FINDINGS/IMPRESSION:: Fetus cephalic position. 8/8 score biophysical profile. heart rate 139 beats per minutes. JAMAL 19.1 cm . Impression dictated by: Chevy Moreland M.D. 05/21/2025 7:56 PM Dictation Location: [place] [address] Electronically authenticated by: [id number] Y Date: 05/21/2025 19:56 Dictated By: Chevy Moreland M.D. Signed By: 05/21/251958 DD/ 55 TD/TT: Trackmobile Operator: DIANE HealthcareRadiology Study observation (narrative)NOMS HealthcareUS OB BPP W NON-STRESSOrdered By: Radiologist Radiology on 94-70-6638GXOL Healthcare Work Phone: US OB BPP W NON-STRESSon 18-95-9600Kt[place] [address] Ultrasound Report Signed Patient: VINNY DOWNEY MR#: [id number] : 2000 Acct:[id number] Age/Sex: 24 / F ADM Date: 05/14/25 Loc: US Attending Dr: Mukul Foy D.O. Ordering Physician: Mukul Foy D.O. Date of Service: 05/14/25 Procedure(s): US OB BPP w non-stress Accession Number(s): [id number] cc: Mukul Foy D.O.; Ynes Rodriguez The [place] [id number] Patient Name: VINNY DOWNEY MRN: [facility]:[id number] date: 2000 Sex: F Assigned Patient Location: Current Patient Location: [facility] Accession/Order Number: [id number] Exam Date: 05/14/2025 16:00 Report Date: 05/14/2025 22:20 At the request of: MUKUL FOY DO Procedure: US OB BPP w non-stress Ultrasound biophysical profile INDICATION: Gestational diabetes COMPARISON: 05/07/2025 FINDINGS/IMPRESSION:: Fetus cephalic position. 8/8 score biophysical profile. heart rate 1:30 beats per minutes. JAMAL 17.4 cm . Impression dictated by: Chevy Moreland M.D. 05/14/2025 10:20 PM Dictation Location: [place] [address] Electronically authenticated by: [id number] Y Date: 05/14/2025 22:20 Dictated By: Chevy Moreland M.D. Signed By: 05/14/252222 DD/ 19 TD/TT: Trackmobile Operator:JAMILAHadiologvicki, Radiologist, - 06/03/2025 The [place] [id number] Ultrasound Report Signed Patient: VINNY DOWNEY MR#: [id number] : 2000 Acct:[id number] Age/Sex: 24 / F ADM Date: 05/14/25 Loc: US Attending Dr: Mukul Foy D.O. Ordering Physician: Mukul Foy D.O. Date of Service: 05/14/25 Procedure(s): US OB BPP w non-stress Accession Number(s): [id number] cc: Mukul Foy D.O.; Ynes Rodriguez [employer] [place] [address] Patient Name: VINNY DOWNEY MRN: H:[id number] date: 2000 Sex: F Assigned Patient Location: Current Patient Location: [facility] Accession/Order Number: [id number] Exam Date: 05/14/2025 16:00 Report Date: 05/14/2025 22:20 At the request of: MUKUL FOY DO Procedure: US OB BPP w non-stress Ultrasound biophysical profile INDICATION: Gestational diabetes COMPARISON: 05/07/2025 FINDINGS/IMPRESSION:: Fetus cephalic position. 8/8 score biophysical profile. heart rate 1:30 beats per minutes. JAMAL 17.4 cm . Impression dictated by: Chevy Moreland M.D. 05/14/2025 10:20 PM Dictation Location: [place] [address] Electronically authenticated by: [id number] Y Date: 05/14/2025 22:20 Dictated By: Chevy Moreland M.D. Signed By: 05/14/252222 DD/ 19 TD/TT: Trackmobile Operator: NOMS HealthcareRadiology Study observation (narrative)NOMS HealthcareUS OB BPP W NON-STRESSOrdered By: Radiologist Radiology on 62-24-3122QPDR Healthcare Work Phone: Urinalysis macro (dipstick) panel (U)on 05-14-2025 Bilirubin, UANegativeNegative - 4(70) +++ mg/dLNOMS HealthcareBlood, UANegative Negative - 50 Yunior/mcLNOMS HealthcareClarity, UAClearNOMS HealthcareColor, UA YellowNOMS HealthcareGlucose, UANegativeNegative - 2000(110) ++++ mg/dLNOWA HealthcareInterpretation and review of laboratory resultsNormalNOMS Healthcare Ketones, UANegativeNegative - 160(16) ++++ mg/dLNOWA HealthcareLeukocytes, UA NegativeNegative - 500+++ Trip/mcLNOMS HealthcareNitrite, UANegativeNegative - PositiveNOMS HealthcarepH, UA6.55 - 9NOMS HealthcareProtein, UANegativeNegative - 2000(20) ++++ mg/dLNOWA HealthcareSpec Grav, UA1.0101 - 1.03NOWA Healthcare Urobilinogen, UA2.00.2 - 12 mg/dLNOWA HealthcareNOWA HealthcareTBH UA (CLEAN/CATCH) DOMESTIC HOUSEKEEPER/MICRO IF IND.on 18-76-9297ISLHZHHPO URINENegativeNEGATIVENOMS HealthcareBLOOD URINENegativeNEGATIVENOMS HealthcareClarity (U)CLEARCLEARNOMS HealthcareColor (U)LT. YELLOWYELLOWNOMS HealthcareGLUCOSE URINE UANegative NEGATIVE mg/dLNOWA HealthcareInterpretation and review of laboratory results AbnormalNOMS HealthcareKetones Ql (U)NegativeNEGATIVE mg/dLNOWA Healthcare Leukocyte esterase Test strip Ql (U)SMALLAbnormalNEGATIVENOMS HealthcareNITRITE URINENegativeNEGATIVENOMS HealthcarepH (U)7.0 [pH]5.0 - 9.0NOWA Healthcare PROTEIN URINENegativeNEG/TRACE mg/dLNOWA HealthcareSPECIFIC GRAVITY URINE<=1.005 Abnormal1.005 - 1.025NOWA HealthcareURINE MICROSCOPIC INDICATEDYESNOWA HealthcareUROBILINOGEN URINE0.2 EU/dL0.2 - 1.0 EU/dLNOWA HealthcareCLINISYNCNOMS HealthcareUS OB BPP W NON-STRESSon 72-19-14[address] [address] Ultrasound Report Signed Patient: VINNY DOWNEY MR#: [id number] : 2000 Acct:[id number] Age/Sex: 24 / F ADM Date: 05/07/25 Loc: US Attending Dr: Mukul Foy D.O. Ordering Physician: Mukul Foy D.O. Date of Service: 05/07/25 Procedure(s): US OB BPP w non-stress Accession Number(s): [id number] cc: Mukul Foy D.O.; Ynes Rodriguez NP The [place] [id number] Patient Name: VINNY DOWNEY MRN: [facility]:[id number] date: 2000 Sex: F Assigned Patient Location: Current Patient Location: Accession/Order Number: [id number] Exam Date: 05/07/2025 16:45 Report Date: 05/08/2025 00:28 At the request of: MUKUL FOY DO Procedure: US OB BPP w non-stress US OB BPP w non-stress 05/07/2025 5:57 PM SIGNS AND SYMPTOMS: 06/23/2025 GESTATIONAL DIABETES MELLITUS 024.419 PROTOCOL: Transabdominal sonographic images of the gravid uterus COMPARISON: None FINDINGS: Estimated gestational age: 33 weeks 2 days heart rate: 127 bpm Amniotic fluid index: 16.03 cm. The deepest vertical pocket measures 6.47 cm. Biophysical profile: breathing movements: 2/2 Gross body movements: 2/2 tone: 2/2 Amniotic fluid volume: 2/2 US/US OB BPP w non-stress IMPRESSION: Biophysical profile score: 8/8 Impression dictated by: Pavel Yepez M.D. 05/08/2025 12:28 AM Dictation Location: [place] [address] Electronically authenticated by: [id number] Y Date: 05/08/2025 00:28 Dictated By: Pavel Yepez M.D. Signed By: 05/08/25 0030 DD/ 0028 TD/TT: Trackmobile Operator:MILYHRadiology, Radiologist, MD - 06/03/[address] [address] Ultrasound Report Signed Patient: VINNY DOWNEY MR#: [id number] : 2000 Acct:[id number] Age/Sex: 24 / F ADM Date: 05/07/25 Loc: US Attending Dr: Mukul Foy D.O. Ordering Physician: Mukul Foy D.O. Date of Service: 05/07/25 Procedure(s): US OB BPP w non-stress Accession Number(s): [id number] cc: Mukul Foy D.O.; Ynes Rodriguez NP [place] [address] Patient Name: VINNY DOWNEY MRN: [facility]:[id number] date: 2000 Sex: F Assigned Patient Location: US Current Patient Location: Accession/Order Number: [id number] Exam Date: 05/07/2025 16:45 Report Date: 05/08/2025 00:28 At the request of: MUKUL FOY DO Procedure: US OB BPP w non-stress US OB BPP w non-stress 05/07/2025 5:57 PM SIGNS AND SYMPTOMS: 06/23/2025 GESTATIONAL DIABETES MELLITUS 024.419 PROTOCOL: Transabdominal sonographic images of the gravid uterus COMPARISON: None FINDINGS: Estimated gestational age: 33 weeks 2 days heart rate: 127 bpm Amniotic fluid index: 16.03 cm. The deepest vertical pocket measures 6.47 cm. Biophysical profile: breathing movements: 2/2 Gross body movements: 2/2 tone: 2/2 Amniotic fluid volume: 2/2 US/US OB BPP w non-stress IMPRESSION: Biophysical profile score: 8/8 Impression dictated by: Pavel Yepez M.D. 05/08/2025 12:28 AM Dictation Location: [place] [address] Electronically authenticated by: [id number] Y Date: 05/08/2025 00:28 Dictated By: Pavel Yepez M.D. Signed By: 05/08/2529 DD/ TD/TT: Trackmobile Operator: DIANE HealthcareRadiology Study observation (narrative)NOMS HealthcareUS OB BPP W NON-STRESSOrdered By: Radiologist Radiology on 79-20-4543[facility] Work Phone: us OB BPP W NON-STRESSon 88-12-8733[place] [address] Ultrasound Report Signed Patient: VINNY DOWNEY MR#: [id number] : 2000 Acct:[id number] Age/Sex: 24 / F ADM Date: 04/30/25 Loc: US Attending Dr: Mukul Foy D.O. Ordering Physician: Mukul Foy D.O. Date of Service: 04/30/25 Procedure(s): US OB BPP w non-stress Accession Number(s): [id number] cc: Mukul Foy D.O.; Ynes Rodriguez [place] [id number] Patient Name: VINNY DOWNEY MRN: [facility]:[id number] date: 2000 Sex: F Assigned Patient Location: [facility] Current Patient Location: Accession/Order Number: [id number] Exam Date: 04/30/2025 15:57 Report Date: 04/30/2025 22:59 At the request of: MUKUL FOY DO Procedure: US OB BPP w non-stress Ultrasound biophysical profile INDICATION: Gestational diabetes COMPARISON: 04/05/2025 FINDINGS/IMPRESSION:: Fetus cephalic position. 8/8 score biophysical profile. heart rate 145 beats per minutes. JAMAL 12.7 cm. Impression dictated by: Chevy Moreland M.D. 04/30/2025 10:59 PM Dictation Location: [place] [address] Electronically authenticated by: [id number] Y Date: 04/30/2025 22:59 Dictated By: Chevy Moreland M.D. Signed By: 04/30/252301 DD/ 58 TD/TT: Trackmobile Operator:JAMILAHadiolandie, Radiologist, - 04/30/2025 [place] [address] Ultrasound Report Signed Patient: VINNY DOWNEY MR#: [id number] : 2000 Acct:[id number] Age/Sex: 24 / F ADM Date: 04/30/25 Loc: US Attending Dr: Mukul Foy D.O. Ordering Physician: Mukul Foy D.O. Date of Service: 04/30/25 Procedure(s): US OB BPP w non-stress Accession Number(s): [id number] cc: Mukul Foy D.O.; Ynes Rodriguez NP [place] [id number] Patient Name: VINNY DOWNEY MRN: [facility]:[id number] date: 2000 Sex: F Assigned Patient Location: [facility] Current Patient Location: Accession/Order Number: [id number] Exam Date: 04/30/2025 15:57 Report Date: 04/30/2025 22:59 At the request of: MUKUL FOY DO Procedure: US OB BPP w non-stress Ultrasound biophysical profile INDICATION: Gestational diabetes COMPARISON: 04/05/2025 FINDINGS/IMPRESSION:: Fetus cephalic position. 02/28 score biophysical profile. heart rate 145 beats per minutes. JAMAL 12.7 cm. Impression dictated by: Chevy Moreland M.D. 04/30/2025 10:59 PM Dictation Location: [place] [address] Electronically authenticated by: [id number] Y Date: 04/30/2025 22:59 Dictated By: Chevy Moreland M.D. Signed By: 04/30/252301 DD/ 58 TD/TT: Trackmobile Operator: NOMRenzo HealthcareRadiology Study observation (narrative)NOMS HealthcareUS OB BPP W NON-STRESSOrdered By: Radiologist Radiology on 92-99-4383VTTVMissouri Baptist Medical Center Work Phone: Urinalysis macro (dipstick) panel (U)on 04-30-2025 Bilirubin, UANegativeNegative - 4(70) +++ mg/dLNOWA HealthcareBlood, UANegative Negative - 50 Yunior/mcLNOMS HealthcareClarity, [...] mg/dLNOMS HealthcareNOMS HealthcareUrinalysis macro (dipstick) panel (U)on 66-03-2960Stnugqtah, UANegativeNegative - 4(70) +++ mg/dL NOMS HealthcareBlood, UANegativeNegative - 50 Yunior/mcLNOMS HealthcareClarity, UA ClearNOMS HealthcareColor, UAYellowNOMS HealthcareGlucose, UANegativeNegative - 1999(110) ++++ mg/dLNOMS HealthcareInterpretation and review of laboratory resultsNormalNOMS HealthcareKetones, UANegativeNegative - 160(16) ++++ mg/dLNOMS HealthcareLeukocytes, UANegativeNegative - 500+++ Trip/[facility] Nitrite, UANegativeNegative - PositiveNOMS HealthcarepH, UA6.55 - 9NOMS HealthcareProtein, UANegativeNegative - 1999(20) ++++ mg/dLNOMS HealthcareSpec Grav, UA1.0051 - 1.03NOWA HealthcareUrobilinogen, UA0.20.2 - 12 mg/dLNOMS HealthcareNOMS HealthcareALL CBC WITH AUTO DIFFon 95-58-4272SOJUAOHSY ABSOLUTE LLXL4XLFO HealthcareBasophils/100 WBC (Bld)0.2 %0.2 - 2.0 %[facility] Eosinophils/100 WBC (Bld)1.1 %0.9 - 7.0 %NOMS HealthcareErythrocyte distribution width (RBC) [Ratio]12.8 %11.0 - 15.0 %[facility] CenterHematocrit (Bld) [Volume fraction]30.7 %Low36.0 - 48.0 %[facility] CenterHemoglobin (Bld) [Mass/Vol]10.3 g/dLLow12.0 - 16.0 g/dLMissouri Baptist Medical CenterIMMATURE GRANULOCYTES ABS AUTO0.04HighNOExcelsior Springs Medical CenterImmature granulocytes/100 WBC (Bld)0.4 %0.0 - 0.5 %[facility] Interpretation and review of laboratory resultsAbnormalNOExcelsior Springs Medical Center LYMPHOCYTES ABSOLUTE AUTO1.9NOExcelsior Springs Medical CenterLymphocytes/100 WBC (Bld)17.1 %Low 20.5 - 60.0 %[facility] CenterMCH (RBC) [Entitic mass]29.7 pg26.7 - 34.0 pgMercy McCune-Brooks HospitalHC (RBC) [Mass/Vol]33.6 g/dL29.9 - 35.2 g/dLMissouri Baptist Medical CenterMCV (RBC) [Entitic vol]88.5 fL81.0 - 99.0 fLMissouri Baptist Medical CenterMONOCYTES ABSOLUTE AUTO0.7NOMS HealthcareMonocytes/100 WBC (Bld)6.5 %1.7 - 12.0 %[facility] CenterNEUTROPHILS ABSOLUTE AUTO8.2HighNOMS HealthcareNeutrophils/100 WBC (Bld)74.7 %43.0 - 75.0 % [facility] CenterPlatelet mean volume (Bld) [Entitic vol]8.7 fLLow9.5 - 13.5 fL [facility] CenterTBH EO #0.1NOMS HealthcareTB [id number] [facility] HospitalTB RBC3.47Low [facility] CenterTB IAX79PPKB HealthcareCLINISYNCNOMS HealthcareUS OB GROWTHon 00-05-4977[address] [address] Ultrasound Report Signed Patient: VINNY DOWNEY MR#: [id number] : 2000 Acct:[id number] Age/Sex: 24 / F ADM Date: 04/05/25 Loc: Attending Dr: Regina Barton Ordering Physician: Regina Barton Date of Service: 04/05/25 Procedure(s): US OB growth Accession Number(s): [id number] cc: Reigna Barton; Physician,Non-Staff MPatricia The [address] [address] Patient Name: VINNY DOWNEY [facility]N: [facility]:[id number] date: 2000 Sex: F Assigned Patient Location: US Current Patient Location: LAB Accession/Order Number: [id number] Exam Date: 04/05/2025 10:00 Report Date: 04/05/2025 [...] Peraza M.D. 04/05/2025 12:08 PM Dictation Location: [place] [address] Electronically authenticated by: [id number] Y Date: 04/05/2025 12:08 Dictated By: Daryn Peraza D.O. Signed By: 04/05/25 1211 DD/ 1208 TD/TT: Trackmobile Operator:JAMILAHadiologvicki, Radiologist, - 04/05/2025 The [place] [id number] Ultrasound Report Signed Patient: VINNY DOWNEY MR#: [id number] : 2000 Acct:[id number] Age/Sex: 24 / F ADM Date: 04/05/25 Loc: US Attending Dr: Regina Barton Ordering Physician: Regina Barton Date of Service: 04/05/25 Procedure(s): US OB growth Accession Number(s): [id number] cc: Regina Barton; Physician,Non-Staff Khadar The [address] [address] Patient Name: VINNY DOWNEY MRN: [facility]:[id number] date: 2000 Sex: F Assigned Patient Location: Current Patient Location: LAB Accession/Order Number: [id number] Exam Date: 04/05/2025 10:00 Report Date: 04/05/2025 [...] Peraza M.D. 04/05/2025 12:08 PM Dictation Location: [facility] Electronically authenticated by: [id number] Y Date: 04/05/2025 12:08 Dictated By: Daryn Peraza D.O. Signed By: 04/05/25 1211 DD/ 1208 TD/TT: Trackmobile Operator: DIANE HealthcareRadiology Study observation (narrative)DIANE FletcherUS OB GROWTHOrdered By: Radiologist Radiology on 63-40-4728GGJQ Healthcare Work Phone: Urinalysis macro (dipstick) panel [...] mg/dLNOMS HealthcareNOMS HealthcareUrinalysis macro (dipstick) panel (U)on 59-31-6628Jzepwjgjl, UANegativeNegative - 4(70) +++ mg/dL NOMS HealthcareBlood, [...] mg/dLNOMS HealthcareNOMS HealthcareUrinalysis macro (dipstick) panel (U)on 28-25-6755Rknohihwv, UA NegativeNegative - 4(70) +++ mg/dLNOMS HealthcareBlood, [...] HealthcareNOMS HealthcareUS OB 14+ WEEKS ANATOMY SCANon 58-28-6410TM OB 14+ WEEKS ANATOMY SCANFINDINGS: A single, [...] Delivery: 06/23/25 Gestational Age as of 01/15/2025: 00e1cIasuavlqhl macro (dipstick) panel (U)on 14-41-6555Odkxrykcx, UANegativeNegative - 4(70) +++ mg/dLNOMS HealthcareBlood, UANegativeNegative [...] - 12 mg/dLNOMS HealthcareNOMS HealthcareRECURRENT VAGINITIS (HTRX)on 37-12-5531EYKAGMUGX LSUBXTI9WRYK HealthcareATOPOBIUM VAGINAENot detectedNOMS HealthcareBVAB 2,3 (BACTERIAL VAGINOSIS ASSOCIATED BACTERIA 2, 3); MOBILUNCUS KIP6ZDOE HealthcareBVAB 2,3 (BACTERIAL VAGINOSIS ASSOCIATED BACTERIA 2, 3); MOBILUNCUS SPPNot detectedNOMS HealthcareCANDIDA ALBICANS, PARAPSILOSIS, SKXSHGJDVS4JBCB HealthcareCANDIDA ALBICANS, PARAPSILOSIS, TROPICALISNot detectedNOMS HealthcareCANDIDA GLABRATA0 NOMS HealthcareCANDIDA GLABRATANot detectedNOMS HealthcareCANDIDA TORRPB6TGVJ HealthcareCANDIDA KRUSEINot detectedNOMS HealthcareCHLAMYDIA EOQLIEAOWXX9SFVR HealthcareCHLAMYDIA TRACHOMATISNot detectedNOMS HealthcareGARDNERELLA VAGINALIS0 NOMS HealthcareGARDNERELLA VAGINALISNot detectedNOMS HealthcareMEGASPHAERA (TYPES 1, 2)0NOMS HealthcareMEGASPHAERA (TYPES 1, 2)Not detectedNOMS Healthcare MYCOPLASMA UMKVGUOKKI9XNZD HealthcareMYCOPLASMA GENITALIUMNot detectedNOMS HealthcareNEISSERIA BWQGFXDQMJM3GYMJ HealthcareNEISSERIA GONORRHOEAENot detected NOMS HealthcareTRICHOMONAS PMAJXIUUL0FYGY HealthcareTRICHOMONAS VAGINALISNot detectedNOMS HealthcareNOMS HealthcareCBCon 41-76-5173Ltqbbthwyqk distribution width (RBC) [Ratio]12.6 %11.8 - 14.4 %[facility]'S HospitalHematocrit (Bld) [Volume fraction]35.4 %Low36.3 - 47.1 %[facility]'S HospitalHemoglobin (Bld) [Mass/Vol]11.7 g/dLLow11.9 - 15.1 g/dLBon [facility] Medical CenterInterpretation and review of laboratory resultsAbnormalBon [facility] (RBC) [Entitic mass]30 pg25.2 - 33.5 pgBon [facility] (RBC) [Mass/Vol]33.1 g/dL 28.4 - 34.8 g/dLBon [facility] Medical CenterMCV (RBC) [Entitic vol]90.8 fL82.6 - 102.[address] Mary'S HospitalNucleated RBC/100 WBC (Bld) [Ratio]0 %0.0 per 100 WBCBon [facility] Stokes [facility] Va Medical CenterPlatelet mean volume (Bld) [Entitic vol]8.7 fL8.1 - 13.[address] Mary'S HospitalPlatelets (Bld) [#/Vol]316 10*3/uLBon [facility] Medical CenterRBC (Bld) [#/Vol]3.9 10*6/uLLow3.95 - 5.11 m/uLBon Secours St. Mary'S HospitalWBC other (Bld) [#/Vol]10.2Bon [facility] HospitalErythrocyte distribution width (RBC) [Ratio]12.6 %Cmzqqt67.8-14.4Southview Medical CenterComment on above:Performed By: #### GLUSC, CBC #### [address] [place], [facility]83 Photographer Apprentice Lithographic: Yelena Greco MDHematocrit (Bld) [Volume fraction]35.4 %Low 36.3-47.1MSt. Francis HospitalComment on above:Performed By: #### GLUSC, CBC #### [address] [place] [address] Photographer Apprentice Lithographic: eYlena Greco MDHemoglobin (Bld) [Mass/Vol]11.7 g/dLLow11.9-15.1 [facility] CenterComment on above:Performed By: #### GLUSC, CBC #### [address] [place] [address] Photographer Apprentice Lithographic: YULY ArandaCH (RBC) [Entitic mass]30.0 exEtszdv22.2-33.5 [facility] CenterComment on above:Performed By: #### GLUSC, CBC #### [address] [place], [place] [address] Photographer Apprentice Lithographic: YULY ArandaCHC (RBC) [Mass/Vol]33.1 g/mWHlphkp58.4-34.8[facility] HospitalComment on above:Performed By: #### GLUSC, CBC #### [address] [place], [place] [address] Photographer Apprentice Lithographic: YULY ArandaCV (RBC) [Entitic vol]90.8 xQKtricm52.6-102.9 [facility] HospitalComment on above:Performed By: #### GLUSILVINO, CBC #### [address] [place], [place] [address] Photographer Apprentice Lithographic: Yelena Greco MDNRBC Automated0.0 per 100 WBCNormal0.0[facility] HospitalComment on above:Performed By: #### GLUSILVINO, CBC #### [address] [place], [place] [address] Photographer Apprentice Lithographic: Sobeida Aranda mean volume (Bld) [Entitic vol]8.7 fL Normal8.1-13.5[facility] HospitalComment on above:Performed By: #### GLUSC, CBC #### [address] [place], [place] [address] Photographer Apprentice Lithographic: Richie Aranda (Bld) [#/Vol]316 10*3/iVYncpsr342-061 [facility] HospitalComment on above:Performed By: #### GLUSC, CBC #### [address] [place], [place] [address] Photographer Apprentice Lithographic: JO ANN ArandaBC (Bld) [#/Vol]3.90 10*6/uLLow3.95-5.11[facility] HospitalComment on above:Performed By: #### GLUSC, CBC #### [address] [place], [place] [address] Photographer Apprentice Lithographic: JOSELITO Aranda ([facility]) [#/Vol]10.2 10*3/uLNormal3.5-11.3MSt. Francis HospitalComment on above:Performed By: #### GLUSC, CBC #### [address] [place], [place] [address] Photographer Apprentice Lithographic: Yelena Greco MDGlucose Challenge Gestationalon 11-07-9412EJS ADMN GlucolaBon [facility] Medical CenterGlucose 1 Hr post 50 g glucose PO [Mass/Vol]184 mg/yLFiqe22 - 135 mg/dLBon [facility] Medical CenterInterpretation and review of laboratory resultsAbnormalBon [facility] Glucose Toya Scr 50gon 71-00-9664Ycbvezn [Mass/Vol]184 mg/rHEmkr57-971MkzrlSouthview Medical CenterComment on above:Performed By: #### GLUSILVINO, CBC #### [address] [place] [address] Photographer Apprentice Lithographic: Yelena Greco MDGlu Administered viaGlucolaNormalSouthview Medical CenterComment on above:Performed By: #### GLUSILVINO, CBC #### [address] [place] [address] Photographer Apprentice Lithographic: Yelena Greco MDUS OB LESS THAN 14 WEEKS SINGLE OR FIRST GESTATION on 88-41-4180XNBFMQYOZOK: FIRST TRIMESTER OBSTETRIC ULTRASOUND 12/20/2024 TECHNIQUE: 1. [...] Noah Rivero MD 12/23/24 Final result [facility] CenterRadiology Study observation (narrative)NOMSsm [facility] Mary'S Health CenterUS OB LESS THAN 14 WEEKS SINGLE OR FIRST GESTATIONOrdered By: Radiologist Radiology on 88-90-2228FPUF [facility] Work Phone: US OB LESS THAN 14 WEEKS SINGLE OR FIRST GESTATION W DOPPLERon 77-96-2625NA OB LESS THAN 14 WEEKS SINGLE OR [...] by: Noah Rivero MD 12/23/24 Final resultNormalMercy Brocton HospitalUrinalysis macro (dipstick) panel (U)on 96-09-1163Xpzjzsjyy, UANegativeNegative - 4(70) +++ mg/dLNOMS HealthcareBlood, UAPositiveNegative [...] - 1.03 NOMS HealthcareUrobilinogen, UA1.00.2 - 12 mg/dLSt. [facility] Medical Center Healthcare HCG ( test) Ql (U)on 27-53-1430Tvftevyolqcouh and review of laboratory resultsAbnormalCACHE VALLEY [facility] HealthcarePreg Test, UrPositiveNegativeNOExcelsior Springs Medical CenterNOWA HealthcareUS OB TRANSVAGINALon 66-94-3562YC OB TRANSVAGINALEXAM: US OB TRANSVAGINAL HISTORY: Dating. [...] II, MD, PHD at 15-Nov-2024 09:44:32 AM [facility] TeleradiologyNormalNot AvailableComment on above:Order Comment: US OB TRANSVAGINAL No LMP recorded.Urinalysis macro (dipstick) panel (U)on 71-94-9224Dvxmbqpwc, UA NegativeNegative - 4(70) +++ mg/dLNOMS HealthcareBlood, UANegativeNegative - 50 Yunior/[facility] HealthcareClarity, UAClearNOWA HealthcareColor, UAYellowNOWA HealthcareGlucose, UANegativeNegative - 2000(110) ++++ mg/dLNOWA Healthcare Interpretation and review of laboratory resultsNormalMissouri Baptist Medical CenterKetones, UA NegativeNegative - 160(16) ++++ mg/dLCACHE VALLEY HOSPITAL HealthcareLeukocytes, UANegative Negative - 500+++ Trip/[facility] HealthcareNitrite, UANegativeNegative - Positive NOMS HealthcarepH, UA6.55 - 9NOWA HealthcareProtein, UANegativeNegative - 2000(20) ++++ mg/dLNOWA HealthcareSpec Grav, UA1.0051 - 1.03[facility] Healthcare Urobilinogen, UA0.20.2 - 12 mg/dLNOMS Mccullough-Hyde Memorial HospitalNOWA HealthcareIGP,APTIMA HPV,AGE GDLNon 89-72-0094MTC GDLN ACOG TESTINGNote.[facility] HealthcareComment on above:TESTS RESULT FLAG UNITS REF RANGE LAB Clinician Provided Cytology Information Source.............Cervix;Endocervix No. of containers..01 ThinPrep Vial Age Algo ACOG Addie... -21 08 FLAG LEGEND: L-Low Normal,H-High Normal,LL-Alert Low,HH-Alert High <-Panic Low,>-Panic High,A-Abnormal,AA-Critical Abnormal Performed at: 01 =G [facility] [place] [address] [place] [address] Anastasiya Moses MD, IGP, RFX APTIMA HPV ASCUNote.NOMS HealthcareComment on above:TESTS RESULT FLAG UNITS REF RANGE LAB DIAGNOSIS: 02 NEGATIVE FOR INTRAEPITHELIAL LESION OR MALIGNANCY. Specimen adequacy: 02 Satisfactory for evaluation. Endocervical and/or squamous metaplastic cells (endocervical component) are present. Performed by: Oswald Galaviz, Temperature Inspector ([facility]) . 02 Note: Note 02 [...] <-Panic Low,>-Panic High,A-Abnormal,AA-Critical Abnormal Performed at: [address] [address] Anastasiya Moses MD, Performed at: =G - [facility] [address] [id number] [employer]ographer [employer]ice [employer]: Anastasiya Moses MD, Phone: [phone] Performed at: - [facility] [id number] Photographer App[employer]ice [employer]ographic: Anastasiya Moses MD, Phone: [phone] BRUSH-SPATULA CERVIX ENDOCERVIX CLINISYNCNOMS HealthcareComp Metabolic Profon 01-36-6607Fuzgnpb [Mass/Vol]4.6 g/dLNormal3.5-5.2[facility] Mary'S HospitalComment on above:Performed By: #### CP #### [address] [place] [address] Photographer Apprentice Lithographic: Yelena Greco MDAlbumin/Glob Ratio1.5Sajvub4.0-2.5Southview Medical CenterComment on above:Performed By: #### CP #### [address] [place] [address] Photographer Apprentice Lithographic: Nas Arandakaline Phos71 U/HXheirf44-540ClluuSouthview Medical CenterComment on above:Performed By: #### CP #### [address] [place] [address] Photographer Apprentice Lithographic: Yelena Greco MDALT [Catalytic activity/Vol]41 U/GJmfz19-81GtuizSouthview Medical CenterComment on above:Performed By: #### CP #### [address] [place] [address] Photographer Apprentice Lithographic: Yelena Greco MDAnion gap [Moles/Vol]10 mmol/LNormal9-16Southview Medical CenterComment on above:Performed By: #### CP #### [address] [place] [address] Photographer Apprentice [employer]ographic: Yelena Greco MDAST [Catalytic activity/Vol]34 U/SUkqxoi38-20Dckbm Tiffin HospitalComment on above:Performed By: #### CP #### [address] [place] [address] Photographer Apprentice Lithographic: Yelena Greco MDBilirubin [Mass/Vol]0.4 mg/dLNormal0.00-1.20Southview Medical CenterComment on above:Performed By: #### CP #### [facility] [address] [place] [address] [place] [address] Photographer Apprentice Lithographic: Yelena Greco MDBUN/CRE Pzwhx84Yahx2-55SgvswSouthview Medical Center Comment on above:Performed By: #### CP #### [address] [place] [address] Photographer Apprentice Lithographic: Yelena Greco MDCalcium [Mass/Vol]9.4 mg/dLNormal8.6-10.4Southview Medical CenterComment on above:Performed By: #### CP #### [facility] [address] [place] [address] [place] [address] Photographer Apprentice [employer]ographic: Yelena Greco MDChloride [Moles/Vol]103 mmol/GVwxiwv44-607Uxfhp Tiffin HospitalComment on above:Performed By: #### CP #### [facility] [address] [place] [address] [place] [address] Photographer App[employer]ice [employer]ographic: Yelena Greco MDCO2 [Moles/Vol]25 mmol/YMzfgen12-61Ergfb Tiffin HospitalComment on above:Performed By: #### CP #### [address] [place] [phone] Photographer Apprentice Lithographic: NATALIO Arandareatinine [Mass/Vol]0.6 mg/dLNormal0.50-0.90Southview Medical CenterComment on above:Performed By: #### CP #### [address] [place] [phone] Photographer Apprentice Lithographic: Yelena Greco MDGFR/1.73 sq M.predicted among non-blacks MDRD (S/P/Bld) [Vol rate/Area]mL/min/{1.73_m2}Normal>60Southview Medical CenterComment on above:Result Comment: These results [...] renal tubular secretion.Performed By: #### CP #### [address] [place] [phone] Photographer Apprentice [employer]ographic: Yelena Greco MDGlucose [Mass/Vol]83 mg/oEXlvjuf02-11Tdeos Saint Mary'S HospitalComment on above:Performed By: #### CP #### [address] [place] [phone] Photographer Apprentice Lithographic: ROLANDO Arandaotassium [Moles/Vol]4.6 mmol/LNormal3.7-5.3MSelect Medical [facility] Clinic Rehabilitation Hospital, Beachwood HospitalComment on above:Performed By: #### CP #### [address] [place] [address] Photographer Apprentice Lithographic: Yelena Greco MDProtein [Mass/Vol]7.8 g/dLNormal6.6-8.7[facility] HospitalComment on above:Performed By: #### CP #### [facility] [address] [place] [address] Photographer Apprentice Lithographic: KARLIE Arandaodium [Moles/Vol]138 mmol/KCatqxt992-500VycncSouthview Medical CenterComment on above:Performed By: #### CP #### [facility] [address] [place] [address] Photographer Apprentice Lithographic: Yelena Greco MDUrea nitrogen [Mass/Vol]13 mg/dLNormal6-20Southview Medical CenterComment on above:Performed By: #### CP #### [facility] [address] [place] [address] Photographer Apprentice Lithographic: NATALIO Arandaomprehensive Metabolic Panelon [id number] [Mass/Vol]4.6 g/dL3.5 - 5.2 g/dLBon [facility] Medical CenterAlbumin/Globulin [Mass ratio]1.5 {ratio}1.0 - 2.5Bon [facility] Medical CenterALP [Catalytic activity/Vol]71 U/L35 - 104 U/LBon [facility] Ucla HealthALT [Catalytic activity/Vol]41 U/LHigh10 - 35 U/LBon [facility] Medical CenterAnion gap [Moles/Vol]10 mmol/L9 - 16 mmol/LBon [facility] Ucla HealthAST [Catalytic activity/Vol]34 U/L10 - 35 U/LBon [facility] Medical CenterBilirubin [Mass/Vol]0.4 mg/dL0.00 - 1.20 mg/dLBon [facility] Medical CenterCalcium [Mass/Vol]9.4 mg/dL8.6 - 10.4 mg/dLBon [facility] Chloride [Moles/Vol]103 mmol/L98 - 107 mmol/LBon [facility] Ucla HealthCO2 [Moles/Vol]25 mmol/L20 - 31 mmol/LBon [facility] Medical CenterCreatinine [Mass/Vol] 0.6 mg/dL0.50 - 0.90 mg/dLBon [facility] Medical CenterEst, Glom Filt Rate- PINFBon [facility] Medical CenterEllett Memorial Hospital on above: These results are not intended [...] secretion. Glucose [Mass/Vol]83 mg/dL74 - 99 mg/dLBon [facility] Hospital Of AvondaleRetiDiagInterpretation and review of laboratory resultsAbnoUnion County General HospitalBrand ThunderLewisGale Hospital AlleghanyPotassium [Moles/Vol]4.6 mmol/L3.7 - 5.3 mmol/LBon [facility] AvondaleAstute Medical Mount Carmel Health SystemProtein [Mass/Vol] 7.8 g/dL6.6 - 8.7 g/dLBon [facility] AvondaleAstute Medical Mount Carmel Health SystemSodium [Moles/Vol]138 mmol/L136 - 145 mmol/LBon [facility] Of AvondaleRetiDiagUrea nitrogen [Mass/Vol]13 mg/dL6 - 20 mg/dL Stonesprings Hospital CenterRetiDiagUrea nitrogen/Creatinine [Mass ratio]22 mg/mgHigh9 - 20 Critical access hospitalBrand ThunderLewisGale Hospital AlleghanyLipid Panelon 05-20-2024 Cholesterol [Mass/Vol]152 mg/dL0 - 199 mg/dLBon [facility] Of AvondaleRetiDiagEllett Memorial Hospital on above: Cholesterol Guidelines: <200 Desirable 200-240 Borderline >240 Undesirable Cholesterol in HDL [Mass/Vol]33 mg/dLLow40 - PINF mg/dLBon [facility] Hospital Of AvondaleRetiDiag Comment on above: HDL Guidelines: <40 Undesirable 40-59 Borderline >59 Desirable Cholesterol in LDL [Mass/Vol]88 mg/dL0 - 100 mg/dLBon [facility] Hospital Of AvondaleRetiDiag Comment on above: LDL Guidelines: <100 Desirable 100-129 Near to/above Desirable 130-159 Borderline >159 Undesirable Direct (measured) LDL and calculated LDL are not interchangeable tests. Cholesterol in VLDL [Mass/Vol]31 mg/dLBon [facility] Hospital Of AvondaleRetiDiag Cholesterol.total/Cholesterol in HDL [Mass ratio]5.0 {ratio}[facility] NewsMavenInterpretation and review of laboratory resultsAbnoUnion County General HospitalBrand Thunder BeautylishTriglyceride [Mass/Vol]156 mg/dLHighNINF - 150 mg/dLBon [facility] on above: Triglyceride Guidelines: <150 Desirable 150-199 Borderline 200-499 High >499 Very high Based on AHA Guidelines for fasting triglyceride, April 2012. Bon [facility] Medical CenterLipid Profileon 89-77-9297Fsnktpsewpm [Mass/Vol]152 mg/dLNormal0-199Southview Medical CenterCombeaumont hospital on above:Result Comment: Cholesterol Guidelines: <200 Desirable 200-240 Borderline >240 UndesirablePerformed By: #### LIPR #### [facility] HospitalK[facility] [address] [place] [address] Photographer Apprentice Lithographic: NATALIO Tavarezholesterol in HDL [Mass/Vol]33 mg/dLLow>40[facility] on above:Result Comment: HDL Guidelines: <40 Undesirable 40-59 Borderline >59 DesirablePerformed By: #### LIPR #### [facility] [employer] [address] [place] [phone] Photographer Apprentice Lithographic: NATALIO Tavarezholesterol in LDL [Mass/Vol]88 mg/dLNormal0-100 [facility] Medical CenterComment on above:Result Comment: LDL Guidelines: <100 Desirable 100-129 Near to/above Desirable 130-159 Borderline >159 Undesirable Direct (measured) LDL and calculated LDL are not interchangeable tests.Performed By: #### LIPR #### [facility] [address] [place] [address] Photographer Apprentice [employer]ographic: NATALIO Tavarezholesterol in VLDL [Mass/Vol]31 mg/dLNormal [facility] on above:Performed By: #### LIPR #### [facility] [address] [place] [address] Photographer Apprentice Lithographic: Chance Tavarezstmilad.total/Cholesterol in HDL [Mass ratio]5.0 {ratio}NormalSouthview Medical CenterCombeaumont hospital on above:Performed By: #### LIPR #### [facility] [address] [place] [phone] Photographer Apprentice Lithographic: Osvaldo Santamaria MDTriglyceride [Mass/Vol]156 mg/dLHigh<150Southview Medical CenterComment on above:Result Comment: Triglyceride Guidelines: <150 Desirable 150-199 Borderline 200-499 High >499 Very high Based on AHA Guidelines for fasting triglyceride, April 2012.Performed By: #### LIPR #### [facility] [address] [place], [place] [phone] Photographer Apprentice Lithographic: Osvaldo Santamaria MDUS GALLBLADDER RUQon [id number] GALLBLADDER RUQEXAMINATION: RIGHT UPPER QUADRANT ULTRASOUND 03/06/2024 [...] Signed by: Hernandez Stewart MD 03/06/24 Final resultNormalCleveland Clinic [facility]view [facility] 64-58-6852Siqxsupleop distribution width (RBC) [Ratio]12.4 %Nnpnmk50.8-14.4Southview Medical CenterComment on above: Performed By: #### FEBC #### [address] [place], [place] [phone] Photographer Apprentice Lithographic: Osvaldo Santamaria MD #### CBC, CP #### [facility] [address] [place] [address] Photographer Apprentice Lithographic: Yeelna Greco MDHematocrit (Bld) [Volume fraction]40.2 %Normal 36.3-47.1MSt. Francis HospitalCombeaumont hospital on above:Performed By: #### FEBC #### [address] [address] Photographer Apprentice Lithographic: Osvaldo Santamaria MD #### CBC, CP #### [address] [place], [place] [address] Photographer Apprentice Lithographic: Yelena Greco MDHemoglobin (Bld) [Mass/Vol]13.5 g/dLNormal 11.9-15.1Mohiohealth marion general hospitaly Saint Mary'S HospitalComment on above:Performed By: #### FEBC #### [address] [address] Photographer Apprentice Lithographic: Osvaldo Santamaria MD #### CBC, CP #### [address] [place] [phone] Photographer Apprentice Lithographic: YULY ArandaCH (RBC) [Entitic mass]29.8 pxSwvhcg32.2-33.5 [facility] Medical CenterComment on above:Performed By: #### FEBC #### [address] [address] Photographer Apprentice [employer]ographic: Osvaldo Santamaria MD #### CBC, CP #### [address] [place] [address] Photographer Apprentice Lithographic: YULY ArandaCHC (RBC) [Mass/Vol]33.6 g/wGMmwdgw34.4-34.8South[facility] Medical CenterComment on above:Performed By: #### FEBC #### [address] [address] Photographer Apprentice Lithographic: Osvaldo Santamaria MD #### CBC, CP #### [address] [place] [address] Photographer Apprentice Lithographic: YULY ArandaCV (RBC) [Entitic vol]88.7 tCNhrpll45.6-102.9 [facility] HospitalComment on above:Performed By: #### FEBC #### [place] [address] [place] [address] Photographer Apprentice Lithographic: Osvaldo Santamaria MD #### CBC, CP #### [address] [place], [place] [phone] Photographer Apprentice Lithographic: Yelena Greco MDNRBC Automated0.0 per 100 WBCNormal0.0[facility] on above:Performed By: #### FEBC #### [address] [address] Photographer Apprentice Lithographic: Osvaldo Santamaria MD #### CBC, CP #### [address] [place] [address] Photographer Apprentice Lithographic: Sobeida Aranda mean volume (Bld) [Entitic vol]8.5 fL Normal8.1-13.5Southview Medical CenterComment on above:Performed By: #### FEBC #### [address] [address] Photographer Apprentice Lithographic: Osvaldo Santamaria MD #### CBC, CP #### [address] [place] [address] Photographer Apprentice Lithographic: ROLANDO Arandalatelets (Bld) [#/Vol]309 10*3/mYRykgoe197-006 [facility] Medical CenterCombeaumont hospital on above:Performed By: #### FEBC #### [address] [address] Photographer Apprentice Lithographic: Osvaldo Santamaria MD #### CBC, CP #### [address] [place] [address] Photographer Apprentice Lithographic: Yelena Greco MDRBC (Bld) [#/Vol]4.53 10*6/uLNormal3.95-5.11[facility] Medical CenterCombeaumont hospital on above:Performed By: #### FEBC #### [address] [place] [address] Photographer Apprentice Lithographic: Osvaldo Santamaria MD #### CBC, CP #### [address] [place] [address] Photographer Apprentice Lithographic: Yelena Greco MDWBC (Bld) [#/Vol]6.5 10*3/uLNormal3.5-11.3MSt. Francis HospitalComment on above:Performed By: #### FEBC #### [address] [place] [address] Photographer Apprentice Lithographic: Osvaldo Santamaria MD #### CBC, CP #### [address] [place], [place] [phone] Photographer Apprentice Lithographic: Yelena Greco MDComp Metabolic Profon 70-25-5699Chtilsy [Mass/Vol] 4.5 g/dLNormal3.5-5.2MSt. Francis HospitalComment on above:Performed By: #### FEBC #### [address] [place] [address] Photographer Apprentice Lithographic: Osvaldo Santamaria MD #### CBC, CP #### [address] [place] [address] Photographer Apprentice Lithographic: Yelena Greco MDAlbumin/Glob Ratio1.0Mfbdct5.0-2.5[facility] Medical CenterComment on above:Performed By: #### FEBC #### [address] [place] [address] Photographer Apprentice Lithographic: Osvaldo Santamaria MD #### CBC, CP #### [address] [place], [place] [phone] Photographer Apprentice Lithographic: Nas Arandakaline Phos74 U/WDdlvsn88-888LynakSouthview Medical CenterComment on above:Performed By: #### FEBC #### [address] [address] Photographer Apprentice Lithographic: Osvaldo Santamaria MD #### CBC, CP #### [address] [place] [address] Photographer Apprentice Lithographic: Yelena Greco MDALT [Catalytic activity/Vol]61 U/LHigh5-33MerManchester Memorial HospitalComment on above:Performed By: #### FEBC #### [address] [address] Photographer Apprentice Lithographic: Osvaldo Santamaria MD #### CBC, CP #### [address] [place], [place] [phone] Photographer Apprentice Lithographic: Yelena Greco MDAnion gap [Moles/Vol]8 mmol/LLow9-17[facility] Medical CenterComment on above:Performed By: #### FEBC #### [address] [address] Photographer Apprentice Lithographic: Osvaldo Santamaria MD #### CBC, CP #### [address] [place], [place] [phone] Photographer Apprentice Lithographic: Yelena Greco MDAST [Catalytic activity/Vol]43 U/LHigh<32Uk Healthcarecy Saint Mary'S HospitalComment on above:Performed By: #### FEBC #### [address] [address] Photographer Apprentice Lithographic: Osvaldo Santamaria MD #### CBC, CP #### [address] [place], [place] 0[address]83 Photographer Apprentice Lithographic: Yelena Greco MDBilirubin [Mass/Vol]0.2 mg/dLLow0.3-1.2Mer[facility] [place] HospitalComment on above:Performed By: #### FEBC #### [address] [address] Photographer Apprentice Lithographic: Osvaldo Santamaria MD #### CBC, CP #### [address] [place], [place] [phone] Photographer Apprentice Lithographic: Yelena Greco MDBUN/CRE Dhrko77Nrrsxk9-81Bcizb [facility] Comment on above:Performed By: #### FEBC #### [address] [address] Photographer Apprentice Lithographic: Osvaldo Santamaria MD #### CBC, CP #### [facility] [address] [place] [address] [place] [address] Photographer Apprentice Lithographic: Yelena Greco MDCalcium [Mass/Vol]9.4 mg/dLNormal8.6-10.4[facility] Medical CenterComment on above:Performed By: #### FEBC #### [address] [address] Photographer Apprentice Lithographic: Osvaldo Santamaria MD #### CBC, CP #### [address] [place], [place] [phone] Photographer Apprentice Lithographic: NATALIO Arandahloride [Moles/Vol]100 mmol/GMewtxj84-791LuckcSouthview Medical CenterComment on above:Performed By: #### FEBC #### [address] [address] Photographer Apprentice Lithographic: Osvaldo Santamaria MD #### CBC, CP #### [address] [place], [place] [address]83 Photographer Apprentice Lithographic: Yelena Greco MDCO2 [Moles/Vol]28 mmol/PCnkfzo33-45VlsyiSouthview Medical CenterComment on above:Performed By: #### FEBC #### [address] [address] Photographer Apprentice Lithographic: Osvaldo Santamaria MD #### CBC, CP #### [address] [place], [place] [phone] Photographer Apprentice Lithographic: NATALIO Arandareatinine [Mass/Vol]0.6 mg/dLNormal0.5-0.9[facility] Medical CenterComment on above:Performed By: #### FEBC #### [address] [address] Photographer Apprentice Lithographic: Osvaldo Santamaria MD #### JERAMIE, CP #### [address] [place], [place] [phone] Photographer Apprentice Lithographic: Yelena Greco MDGFR/1.73 sq M.predicted among non-blacks MDRD (S/P/Bld) [Vol rate/Area]mL/min/{1.73_m2}Normal>60[facility] Medical CenterComment on above:Result Comment: These results [...] renal tubular secretion.Performed By: #### FEBC #### [address] [address] Photographer Apprentice Lithographic: Osvaldo Santamaria MD #### JERAMIE, CP #### [address] [place], [place] [phone] Photographer Apprentice Lithographic: Yelena Greco MDGlucose [Mass/Vol]91 mg/pXFkwejh62-86CatdbSt. Francis HospitalComment on above:Performed By: #### FEBC #### [address] [address] Photographer Apprentice Lithographic: Osvaldo Santamaria MD #### CBC, CP #### [address] [place] [address] Photographer Apprentice Lithographic: ROLANDO Arandaotassium [Moles/Vol]4.2 mmol/LNormal3.7-5.3Mohiohealth marion general hospitaly [place] HospitalComment on above:Performed By: #### FEBC #### [address] [address] Photographer Apprentice Lithographic: Osvaldo Santamaria MD #### CBC, CP #### [address] [place] [phone] ( Photographer Apprentice Lithographic: ROLANDO Arandarotein [Mass/Vol]7.6 g/dLNormal6.4-8.3[facility] [place] HospitalComment on above:Performed By: #### FEBC #### [address] [address] Photographer Apprentice Lithographic: Osvaldo Santamaria MD #### CBC, CP #### [address] [place] [phone] ( Photographer Apprentice Lithographic: KARLIE Arandaodium [Moles/Vol]136 mmol/RKjwfnq804-074Ntehk Tiffin HospitalComment on above:Performed By: #### FEBC #### [address] [address] Photographer Apprentice Lithographic: Osvaldo Santamaria MD #### CBC, CP #### [address] [place] [phone] ( Photographer Apprentice Lithographic: Yelena Greco MDUrea nitrogen [Mass/Vol]12 mg/dLNormal6-20[facility] HospitalComment on above:Performed By: #### FEBC #### [address] [address] Photographer Apprentice Lithographic: Osvaldo Santamaria MD #### CBC, CP #### [address] [place] [phone] ( Photographer Apprentice Lithographic: Yelena Greco MDIron Binding Cap.on 02-16-2024% Fe Dxlpfnjjnb41 % Sijcdk42-12Tbssm [place] HospitalComment on above:Performed By: #### FEBC #### [facility] [address] [place] [address] Photographer Apprentice Lithographic: Osvaldo Santamaria MD #### CBC, CP #### [address] [place], [place] [address]67[address]83 Photographer Apprentice Lithographic: Yelena Greco MDIron [Mass/Vol]92 ug/mARucpyb43-280MgtbvSouthview Medical CenterComment on above:Performed By: #### FEBC #### [address] [place] [address] Photographer Apprentice Lithographic: Osvaldo Santamaria MD #### CBC, CP #### [address] [place], [place] 07[address]83 Photographer Apprentice Lithographic: Yelena Greco MDTotal Fe Binding Eui012 ug/qRCdrhyo614-474VunaoSouthview Medical CenterComment on above:Performed By: #### FEBC #### [address] [address] Photographer Apprentice Lithographic: Osvaldo Santamaria MD #### CBC, CP #### [address] [place], [place] 0708483 Photographer Apprentice Lithographic: Yelena Greco MDUnbound Fe Bind Fii361 ug/xUEsnlhi959-601XmdixSouthview Medical CenterComment on above:Performed By: #### FEBC #### [facility] [address] [place] [address] Photographer Apprentice Lithographic: Osvaldo Santamaria MD #### CBC, CP #### [address] [place], [place] [phone] Photographer Apprentice Lithographic: Yelena Greco MDLipid Profileon 07-61-9053Orsustavwsy [Mass/Vol] 245 mg/dLHigh0-199[facility] Medical CenterComment on above:Result Comment: Cholesterol Guidelines: <200 Desirable 200-240 Borderline >240 UndesirablePerformed By: #### LIPR #### [facility] [employer] [address] [place] [address] Photographer Apprentice Lithographic: Osvaldo Santamaria MDCholesterol in HDL [Mass/Vol]34 mg/dLLow>40[facility] Medical CenterComment on above:Result Comment: HDL Guidelines: <40 Undesirable 40-59 Borderline >59 DesirablePerformed By: #### LIPR #### [facility] [employer] [address] [place] [address] Photographer Apprentice Lithographic: NATALIO Tavarezholesterol in LDL [Mass/Vol]159 mg/dLHigh0-100 [facility] CenterCombeaumont hospital on above:Result Comment: LDL Guidelines: <100 Desirable 100-129 Near to/above Desirable 130-159 Borderline >159 Undesirable Direct (measured) LDL and calculated LDL are not interchangeable tests.Performed By: #### LIPR #### [facility] [employer] [address] [place] [address] Photographer Apprentice Lithographic: NATALIO Tavarezholesterol in VLDL [Mass/Vol]52 mg/dLNormal [facility] CenterCombeaumont hospital on above:Performed By: #### LIPR #### [facility] [employer] [address] [place] [address] Photographer Apprentice Lithographic: Chance Tavarezstmilad.total/Cholesterol in HDL [Mass ratio]7.0 {ratio}NormalSouthview Medical CenterCombeaumont hospital on above:Performed By: #### LIPR #### [facility] [address] [place] [address] Photographer Apprentice Lithographic: Osvaldo Santamaria MDTriglyceride [Mass/Vol]259 mg/dLHigh<150Uk Healthcarecy Saint Mary'S HospitalCombeaumont hospital on above:Result Comment: Triglyceride Guidelines: <150 Desirable 150-199 Borderline 200-499 High >499 Very high Based on AHA Guidelines for fasting triglyceride, April 2012.Performed By: #### LIPR #### [facility] [employer] [address] [place] [id number] Photographer Apprentice Lithographic: Osvaldo Santamaria MDOffice Visiton 06-34-1415Vkakjf-up visit [id number] Vinny Downey 2000 F Date Provider Department Center 07/11/2023 RAJENDRA GUNN SAMSON [facility] Family History Problem Relation Age of Onset Anemia Mother Supraventricular tachycardia Father Hyperlipidemia Father Diabetes Sister Family Status - Relation Status Age at Mother Father Sister Level of Service:53058 [place] OFFICE/OUTPATIENT NEW MODERATE MDM 45 MINUTESNormal [facility] HospitalOffice Visiton [id number]-up visit [id number] Vinny Downey 2000 F Date Provider Department Center 03/20/2023 DeliaISRAEL CHAMPION [facility] Family History Problem Relation Age of Onset Anemia Mother Supraventricular tachycardia Father Hyperlipidemia Father Diabetes Sister Family Status - Relation Status Age at Mother Father Sister Level of Service:90991 [place] OFFICE/OUTPATIENT NEW LOW MDM 30-44 MINUTESNormal [facility] HospitalUS PREG BIOPHY W NON STRESSon [id number] PREG BIOPHY W NON STRESSEXAMINATION: US PREG [...] 2022-12-20 07:03[facility] PREG PLACENTAon [id number] PREG PLACENTAEXAMINATION: US PREG PLACENTA HISTORY: Left [...] authenticated by: LUIS ALFREDO GRANT Date: 2022-12-12 14:56[facility]US P[facility] BIOPHY W NON STRESSon [id number] PREG BIOPHY W NON STRESSEXAMINATION: US PREG [...] 2022-12-11 04:08[facility] PREG GROWTHon [id number] PREG GROWTHEXAMINATION: US PREG GROWTH HISTORY: High [...] authenticated by: LUIS ALFREDO GRANT Date: 2022-12-11 04:06[facility] HospitalGTT 3 HR PREGon [id number] [Mass/Vol]98 mg/dLNormal 74-106Tuscarawas HospitalComment on above:Performed By: #### GTT3P #### [facility] [address] [place] [address] Dr. Emilee SpringerGlucose [Mass/Vol]170 mg/dLNoAvita Health System Galion HospitalComment on above:Performed By: #### GTT3P #### [facility] [address] [place] [address] Dr. Emilee SpringerGlucose [Mass/Vol]201 mg/dLNoAvita Health System Galion HospitalComment on above:Performed By: #### GTT3P #### [facility] [address] [place] [address] Dr. Emilee SpringerGlucose [Mass/Vol]115 mg/dLNoAvita Health System Galion HospitalComment on above:Performed By: #### GTT3P #### [facility] [address] [place] [address] Dr. Emilee Mcconnell PREG INCOMPLETE ANATOMYon [id number] PREG INCOMPLETE ANATOMY EXAM: US PREG INCOMPLETE ANATOMY HISTORY: screening COMPARISON: 09/10/2022 TECHNIQUE: Transabdominal FINDINGS: position: Transverse, head to the maternal right Heart rate: 157 bpm Normal observed anatomy: Nose/lips, four-chamber heart, left ventricular outflow tract, right ventricular outflow tract, spine IMPRESSION: Normal observed anatomy Electronically authenticated by: YELENA CARLOS Date: 2022-10-16 08:[address] [place] [address] AUTO DIFFon [id number] #0.0 103/ulNormal0.0-0.1The [facility] HospitalComment on above:Performed By: #### CBC #### [facility] [address] [place] [address] Dr. Emilee SpringerBasophils/100 WBC (Bld)0.2 %Normal0.2-2.0The [facility] Comment on above:Performed By: #### CBC #### [facility] [address] [place] [address] Dr. Emilee Weldon #0.1 103/ulNormal0.0-0.7The [facility] HospitalComment on above: Performed By: #### CBC #### [facility] [address] [address] [address] Emilee Cintronosinophils/100 WBC (Bld)0.8 %Critically low0.9-7.0The [facility] Foundationment on above:Performed By: #### CBC #### [facility] [address] [place] [address] Dr. Emilee Cintronrythrocyte distribution width (RBC) [Ratio]12.5 %Revjuc79.0-15.0 The [facility] HospitalComment on above:Performed By: #### CBC #### [facility] [address] [place] [address] Dr. Emilee SpringerHematocrit (Bld) [Volume fraction]29.8 %Critically low36.0-48.0 [facility] on above:Performed By: #### CBC #### [facility] [address] [place] [address] Dr. Emilee SpringerHemoglobin (Bld) [Mass/Vol]10.0 g/dLCritically low12.0-16.0The [facility] Foundationment on above:Performed By: #### CBC #### [facility] [address] [place] [address] Dr. Emilee Van #0.05 10e3/ulCritically high0.00-0.03The [facility] Comment on above:Performed By: #### CBC #### [facility] [address] [place] [address] Dr. Emilee Van %0.5 %Normal0.0-0.5The [facility] Foundationment on above: Performed By: #### CBC #### [facility] [address] [place] [address] Dr. Emilee ReesH #1.6 103/ulNormal1.2-3.8The [facility] Foundationment on above:Performed By: #### CBC #### [facility] [address] [place] [address] Dr. Emilee Espinozamphocytes/100 WBC (Bld)15.3 %Critically low20.5-60.0The [facility] Foundationment on above:Performed By: #### CBC #### [facility] [address] [address] [address] Emilee Esquivel DIFF REQNONormalThe [facility] HospitalComment on above: Performed By: #### CBC #### [facility] [address] [place] [address] Dr. Emilee Guevara (RBC) [Entitic mass]30.2 cbQbclyb20.7-34.0The [facility] HospitalComment on above:Performed By: #### CBC #### [facility] [address] [place] [address] Dr. Emilee Guevara (RBC) [Mass/Vol]33.6 g/cVAilpox32.9-35.2The [facility] HospitalComment on above:Performed By: #### CBC #### [facility] [address] [place] [address] Dr. Emilee Guevara (RBC) [Entitic vol]90.0 rHIxnqqn29.0-99.0The [facility] HospitalComment on above:Performed By: #### CBC #### [facility] [address] [place] [address] Dr. Emilee Banegas #0.6 103/ulNormal0.3-0.8The [facility] HospitalComment on above:Performed By: #### CBC #### [facility] [address] [place] [address] Dr. Emilee Hightowerocytes/100 WBC (Bld)5.8 %Normal1.7-12.0[facility] Comment on above:Performed By: #### CBC #### [facility] [address] [place] [address] Dr. Emilee Fernandez #8.2 103/ulCritically high1.4-6.5The [facility] Comment on above:Performed By: #### CBC #### [facility] [address] [place] [address] Dr. Emilee Meeksutrophils/100 WBC (Bld)77.4 %Critically high43.0-75.0The [facility] HospitalComment on above:Performed By: #### CBC #### [facility] [address] [address] [address] Emilee Olmedolet mean volume (Bld) [Entitic vol]8.5 fLCritically low 9.5-13.5The [facility] HospitalComment on above:Performed By: #### CBC #### [facility] [address] [place] [address] Dr. Emilee SpringerPLT347 103/shQcbeqq969-790Emn [facility] HospitalComment on above: Performed By: #### CBC #### [facility] [address] [place] [address] Dr. Emilee SpringerRBC3.31 106/ulCritically low4.20-5.40The [facility] HospitalComment on above:Performed By: #### CBC #### [facility] [address] [place] [address] Dr. Emilee SpringerWBC10.6 103/ulNormal4.0-11.0The [facility] HospitalComment on above:Performed By: #### CBC #### [facility] [address] [place] [address] Dr. Emilee SpringerGLUCOSE - 1HRon 25-33-1467Oemroqh [Mass/Vol]176 mg/dLCritically jirh11-301Opu [facility] HospitalComment on above:Performed By: #### GLU1HR #### [facility] [address] [place] [address] Dr. Emilee SpringerCHLAMYDIA/GONOCOCCUS ANISA (SWAB/URINE/PAPon 24-98-9619Pkaafhfzx trachomatis, NAANegativeNormalNegativeThe [facility] HospitalComment on above: Performed By: #### CBC #### [facility] [address] [place] [address] Dr. Emilee SpringerNeisseria gonorrhoeae, NAANegativeNormalNegativeThe [facility] HospitalComment on above:Performed By: #### CBC #### [facility] [address] [place] [address] Dr. Emilee SpringerVAGINITIS/VAGINOSIS DNA PROBEon 44-32-5402Xiohbas speciesNegative NormalNegativeTuscarawas HospitalComment on above:Performed By: #### CBC #### [facility] [address] [place] [address] Dr. Emilee Siegel vaginalisNegativeNormalNegativeTuscarawas Hospital Comment on above:Performed By: #### CBC #### [facility] [address] [place] [address] Dr. Emilee Gonzalez vaginalisNegativeNormalNegativeTuscarawas Hospital Comment on above:Performed By: #### CBC #### [facility] [address] [place] [address] Dr. Emilee SpringerUS PREG ANATOMY SINGLEon [id number] PREG ANATOMY SINGLE EXAMINATION: US PREG ANATOMY [...] authenticated by: LUIS ALFREDO GRANT Date: 2022-09-13 16:57[facility] MATERNAL FOR SPINA BIFIDAon 42-05-7207LLP MoM0.42[facility] HospitalComment on above:Performed By: #### AFPMAT #### [facility] [address] [address] [address] Emilee Yoder Value16.7 ng/mLNOhioHealth O'Bleness HospitalComment on above: Performed By: #### AFPMAT #### [facility] [address] [address] [address] Emilee Yoder, Serum for Spina BifidaReportSt. Vincent Hospital Comment on above:Performed By: #### AFPMAT #### [facility] [address] [address] [address] Emilee BaDunlap Memorial HospitalComment on above:Result Comment: Pam Machado, Ph.D., [facility] Director . References: Available Upon Request. . Multiples Of Median Cutoffs For AFP Elevations Berkowitz 2.5 Black 2.8 IDD 2.0 Twins 4.5 Abbreviation Definitions IDD - Insulin Dep Diabetes OSBR - Open Spina Bifida Risk . For further inquiries contact [employer] [facility] at [phone]. . This test was developed and its performance characteristics determined by [employer]. It has not been cleared or approved by the Food and Drug Administration.Performed By: #### AFPMAT #### [facility] [address] [address] [address] Emilee Barrow Age Collection Date18.6 weeksSt. [facility] Comment on above:Performed By: #### AFPMAT #### [facility] [address] [address] [address] Emilee Vargas, Age Based onEDDSt. Vincent HospitalComment on above:Result Comment: 01/26/2023 Recalculations are not recommended when gestational dating by LMP and ultrasound are within 10 days.Performed By: #### AFPMAT #### [facility] [address] [place] [address] Dr. Emilee SpringerPlatte [facility] / [facility] on above:Result Comment: Not provided. .Performed By: #### AFPMAT #### [facility] [address] [place] [address] Dr. Emilee SpringerBlanchard Valley Health System on above: Result Comment: Interpretation: Screen Negative [...] older.Performed By: #### AFPMAT #### [facility] [address] [place] [address] Dr. Emilee Collazornakrista Age at EDD24.3 yrK[facility] on above:Performed By: #### AFPMAT #### [facility] [address] [place] [address] Dr. Emilee DialDelta Memorial HospitalCombeaumont hospital on above:Result Comment: Not provided. .Performed By: #### AFPMAT #### [facility] [address] [place] [address] Dr. Emilee CanoBR Risk 1 [id number]. Vincent HospitalCombeaumont hospital on above: Performed By: #### AFPMAT #### [facility] [address] [place] [address] Dr. Emilee Galo.NormalTuscarawas HospitalCombeaumont hospital on above:Performed By: #### AFPMAT #### [facility] [address] [place] [address] Dr. Emilee FinnSalem Regional Medical Center on above:Result Comment: Not provided. .Performed By: #### AFPMAT #### [facility] [address] [place] [address] Dr. Emilee SpringerTest Results:NegativeNormThe [facility] on above: Performed By: #### AFPMAT #### [facility] [address] [place] [address] Dr. Emilee Gonzalezbella antibody, IgGon 12-46-7874Lvwxxzg virus IgG Ql (S)314.5 IU/mLBON MCKITRICK HOSPITALCombeaumont hospital on above: REFERENCE RANGE: <5.0 NON-REACTIVE (non-immune) 5.0 TO 9.9 EQUIVOCAL >=10.0 REACTIVE (immune) [facility] HOSPITALHE B SURFACE ANTIGEN SCREENon 75-51-8404ZSfQq Screen NegativeNormalNegativeThe [facility] on above:Performed By: #### HBSANS #### [facility] [address] [place] [address] Dr. Emilee IsraelPATITIS C VIRUS AB W/ REFLEX QUANTon 78-64-8468LYQ AB<0.1Normal 0.0-0.9The [facility] on above:Performed By: #### HCVPCRR #### [facility] [address] [place] [address] Dr. Emilee SpringerInterpretation:CommentKettering Health Springfield on above:Result Comment: Negative Not infected with HCV, unless recent infection is suspected or other evidence exists to indicate HCV infection.Performed By: #### HCVPCRR #### [facility] [address] [place] [address] Dr. Emilee SpringerHIV 1 AND 2 WITH REFLEXon 52-61-9380PFL Screen 4th Generation wRfxNon-ReactiveNormalNon ReactiveThe [facility] on above:Result Comment: HIV Negative HIV-1/HIV-2 antibodies and HIV-1 p24 antigen were NOT detected. There is no laboratory evidence of HIV infection.Performed By: #### CBC #### [facility] [address] [place] [address] Dr. Emilee SpringerRPR QUANTon 29-69-8982Vcuec Plasma Reagin, QuantNon-Reactive NormalNonRea<1:1The [facility] HospitalComment on above:Result Comment: Please Note: This test does not meet current guidelines for screening and diagnosis of syphilis. This test is intended for following treatment response in patients being treated for syphilis infection. To screen for syphilis infection, a reflex cascade that includes both RPR and a treponema-specific assay should be utilized, such as Treponema pallidum (Syphilis) Screening Swain (966796) or Rapid Plasma Reagin (RPR) Test With Reflex to Quantitative RPR and Confirmatory Treponema pallidum Antibodies (675139).Performed By: #### CBC #### [facility] [address] [place] [address] Dr. Emilee Ramírez AB IGGon 14-88-3356Onvjwsq Antibodies, IgG5.03 index NormalImmune >0.99The [facility] HospitalComment on above:Result Comment: Non- immune <0.90 Equivocal 0.90 - 0.99 Immune >0.99Performed By: #### RUBIGG #### [facility] [address] [place] [address] Dr. Emilee Killian AUTO DIFFon 93-28-5160XQHM #0.0 103/ulNormal0.0-0.1T[facility]carawas HospitalComment on above:Performed By: #### GLU1HR #### [facility] [address] [place] [address] Dr. Emilee SpringerBasophils/100 WBC (Bld)0.2 %Normal0.2-2.0The [facility] Comment on above:Performed By: #### GLU1HR #### [facility] [address] [place] [address] Dr. Emilee Weldon #0.1 103/ulNormal0.0-0.7The [facility] HospitalComment on above: Performed By: #### GLU1HR #### [facility] [address] [place] [address] Dr. Emilee Cintronosinophils/100 WBC (Bld)0.9 %Normal0.9-7.0The [facility] Comment on above:Performed By: #### GLU1HR #### [facility] [address] [place] [address] Dr. Emilee Cintronrythrocyte distribution width (RBC) [Ratio]11.9 %Tpzlem46.0-15.0 [facility] HospitalComment on above:Performed By: #### GLU1HR #### [facility] [address] [place] [address] Dr. Emilee SpirngerHematocrit (Bld) [Volume fraction]32.9 %Critically low36.0-48.0 The [facility] HospitalComment on above:Performed By: #### GLU1HR #### [facility] [address] [place] [address] Dr. Emilee SpringerHemoglobin (Bld) [Mass/Vol]11.6 g/dLCritically low12.0-16.0The [facility] HospitalComment on above:Performed By: #### GLU1HR #### [facility] [address] [place] [address] Dr. Emilee Van #0.03 10e3/ulNormal0.00-0.03The [facility] HospitalComment on above:Performed By: #### GLU1HR #### [facility] [address] [place] [address] Dr. Emilee Van %0.3 %Normal0.0-0.5The [facility] HospitalComment on above: Performed By: #### GLU1HR #### [facility] [address] [place] [address] Dr. Emilee ReesH #2.1 103/ulNormal1.2-3.8The [facility] HospitalComment on above:Performed By: #### GLU1HR #### [facility] [address] [place] [address] Dr. Emilee Espinozamphocytes/100 WBC (Bld)20.2 %Critically low20.5-60.0The [facility] HospitalComment on above:Performed By: #### GLU1HR #### [facility] [address] [place] [address] Dr. Emilee Esquivel DIFF REQNONormalThe [facility] HospitalComment on above: Performed By: #### GLU1HR #### [facility] [address] [place] [address] Dr. Emilee Guevara (RBC) [Entitic mass]31.4 xrDzbnnv37.7-34.0The [facility] HospitalComment on above:Performed By: #### GLU1HR #### [facility] [address] [place] [address] Dr. Emilee Guevara (RBC) [Mass/Vol]35.3 g/dLCritically high29.9-35.2The [facility] HospitalComment on above:Performed By: #### GLU1HR #### [facility] [address] [place] [address] Dr. Emilee Guevara (RBC) [Entitic vol]89.2 zQOxfdzs70.0-99.0The [facility] HospitalComment on above:Performed By: #### GLU1HR #### [facility] [address] [place] [address] Dr. Emilee Banegas #0.7 103/ulNormal0.3-0.8The [facility] HospitalComment on above:Performed By: #### GLU1HR #### [facility] [address] [place] [address] Dr. Emilee Hightowerocytes/100 WBC (Bld)7.0 %Normal1.7-12.0[facility] Comment on above:Performed By: #### GLU1HR #### [facility] [address] [place] [address] Dr. Emilee Fernandez #7.5 103/ulCritically high1.4-6.5The [facility] Comment on above:Performed By: #### GLU1HR #### [facility] [address] [place] [address] Dr. Emilee Meeksutrophils/100 WBC (Bld)71.4 %Wmnxso65.0-75.0The [facility] HospitalComment on above:Performed By: #### GLU1HR #### [facility] [address] [place] [address] Dr. Emilee SpringerPlatelet mean volume (Bld) [Entitic vol]9.1 fLCritically low 9.5-13.5The [facility] HospitalComment on above:Performed By: #### GLU1HR #### [facility] [address] [place] [address] Dr. Emilee SpringerPLT311 103/xvGjukru057-076Acm [facility] HospitalComment on above: Performed By: #### GLU1HR #### [facility] [address] [place] [address] Dr. Emilee SpringerRBC3.69 106/ulCritically low4.20-5.40The [facility] HospitalCombeaumont hospital on above:Performed By: #### GLU1HR #### [facility] [address] [place] [address] Dr. Emilee SpringerWBC10.5 103/ulNormal4.0-11.0The [facility] HospitalComment on above:Performed By: #### GLU1HR #### [facility] [address] [place] [address] Dr. Emilee SpringerCULTDENZEL URINEon 46-66-3301BRQPRKW URINECulture Observations: LIGHT GROWTH OF MIXED GENITAL BREN. NO POTENTIAL PATHOGENS SEEN.NormalThe [facility] HospitalCombeaumont hospital on above:Performed By: #### GLU1HR #### [facility] [address] [place] [address] Dr. Emilee SpringerGLYCOHEMOGLOBIN A1Con [id number] RECOMMENDATIONSEE BELOWNormsd The [facility] HospitalCombeaumont hospital on above:Result Comment: ADA RECOMMENDED LIMIT 4.0 - 6.0 ADA THERAPEUTIC TARGET < 7.0 ACTION SUGGESTED > 7.0Performed By: #### A1C #### [facility] [address] [place] [address] Dr. Emilee SpringerGlucose [Mass/Vol]108 mg/dLNormalThe [facility] HospitalComment on above:Performed By: #### A1C #### [facility] [address] [place] [address] Dr. Emilee SpringerHbA1c (Bld) [Mass fraction]5.4 %Normal4.5-6.2The [facility] HospitalComment on above:Performed By: #### A1C #### [facility] [address] [place] [address] Dr. Emilee SpringerNATERA BOX TEST PT SEND OUTon [id number] TO REF LAB07/04/2022 NormalThe [facility] HospitalComment on above:Performed By: #### NBOX #### [facility] [address] [place] [address] Dr. Emilee SpringerTYPE AND SCREENon 82-66-9816SENK AND SCREENNegativeSt. Vincent HospitalComment on above:Performed By: #### GLU1HR #### [facility] [address] [place] [address] Dr. Emilee SpringerUS PREG TVon [id number] PREG TVEXAMINATION: US PREG TV HISTORY: test [...] Electronically authenticated by: YELENA CARLOS Date: 2022-06-23 17:00NoAvita Health System Galion HospitalHCG, Quantitative, Pregnancyon [id number] [id number] CARILION CLINICComment on above: Non-preg premeno <=5 Postmeno <=8 Male <=3 If HCG results do not concur with clinical observations, additional testing to confirm results is recommended. Interpretation and review of laboratory resultsAbVeterans Affairs Black Hills [facility] Care System ACOG PANEL 2: 21 to 29on 04-24-2022..NormalThe [facility] HospitalComment on above:Performed By: #### [id number] #### [facility] [address] [place] [address] Dr. Emilee SpringerAge Gdln ACOG Waijrlp25-61YiomsmSfsCrystal Clinic Orthopedic Center on above:Performed By: #### [id number] #### [facility] [address] [place] [address] Dr. Emilee SpringerDIAGNOSIS:CommentKettering Health Springfield on above: Result Comment: NEGATIVE FOR INTRAEPITHELIAL LESION OR MALIGNANCY. CELLULAR CHANGES ASSOCIATED WITH INFLAMMATION ARE PRESENT.Performed By: #### [id number] #### [facility] [address] [place] [address] Dr. Emiele SpringerMethodology:CommentKettering Health Springfield on above: Result Comment: This liquid based ThinPrep(R) pap test was screened with the use of an image guided system.Performed By: #### [id number] #### [address] [place] [address] Dr. Emilee SpringerNote:CommentKettering Health Springfield on above:Result Comment: The Pap smear is a screening test designed to aid in the detection of premalignant and malignant conditions of the uterine cervix. It is not a diagnostic procedure and should not be used as the sole means of detecting cervical cancer. Both false-positive and false-negative reports do occur. .Performed By: #### [id number] #### [facility] [address] [place] [address] Dr. Emilee SpringerPerformed by:CommentKettering Health Springfield on above: Result Comment: Mary Lou Adams CytotechnologistPerformed By: #### [id number] #### [facility] [address] [place] [address] Dr. Emilee SpringerReflex Criteria:CommentKettering Health Springfield on above:Result Comment: The HPV DNA reflex criteria were not met with this specimen result therefore, no HPV testing was performed. .Performed By: #### [id number] #### [facility] [address] [place] [id number] [address]. Emilee SpringerSpecimen adequacy:CommentNormalThe Heri HospitalComment on above:Result Comment: Satisfactory for evaluation. Endocervical and/or squamous metaplastic cells (endocervical component) are present.Performed By: #### [id number] #### [facility] [address], [place] [address] Dr. Emilee Santoro, Quantitative, Pregnancyon 86-65-1182cSF Amxci67Noux<5 IU/L [facility] HospitalZaldivaCombeaumont [facility] on above: Non-preg premeno <=5 Postmeno <=8 Male <=3 If HCG results do not concur with clinical observations, additional testing to confirm results is recommended. Elevated results not associated with may be found in patients with other diseases such as tumors of the germ cells (testis, ovaries, etc.), bladder, pancreas, stomach, lungs, and liver. Interpretation and review of laboratory resultsAbnoMonroe Clinic Hospital RENAL COMPLETEOrdered By: Lorena Ricks on 25-48-9065Fvexmmjosbni ultrasound of the kidneys and urinary bladder.Picplum Phone: eXAMINATION: RETROPERITONEAL ULTRASOUND OF THE KIDNEYS AND URINARY BLADDER 11/25/2020 COMPARISON: None HISTORY: ORDERING SYSTEM PROVIDED HISTORY: Frequent UTI TECHNOLOGIST PROVIDED HISTORY: This procedure can be scheduled via [employer] Access your [employer] account by visiting [email or web address]. FINDINGS: Kidneys: The right kidney measures 11.1 cm in length and the left kidney measures 11.6 cm in length. Kidneys demonstrate normal cortical echogenicity. No evidence of hydronephrosis or intrarenal stones. Bladder: Unremarkable appearance of the bladder. No significant post void residual.Picplum Phone: e, [facility] Incoming Radiant Results From [employer] - 11/25/2020 3:59 PM EDT EXAMINATION: RETROPERITONEAL ULTRASOUND OF THE KIDNEYS AND URINARY BLADDER 11/25/2020 COMPARISON: None HISTORY: ORDERING SYSTEM PROVIDED HISTORY: Frequent UTI TECHNOLOGIST PROVIDED HISTORY: This procedure can be scheduled via [employer] Access your [employer] account by visiting [email or web address]. FINDINGS: Kidneys: The right kidney measures 11.1 cm in length and the left kidney measures 11.6 cm in length. Kidneys demonstrate normal cortical echogenicity. No evidence of hydronephrosis or intrarenal stones. Bladder: Unremarkable appearance of the bladder. No significant post void residual. IMPRESSION: Unremarkable ultrasound of the kidneys and urinary bladder. [employer] Work Phone: Formson 19-59-1671Cluza [id number]#1.00CD:127NoBarberton Citizens HospitalAmbulatory Clinical Summaryon 94-51-9539Iiyvquttrd Clinical Summary {02-gv-yp-al-kf-46-08-55-d6-1l-v4-26-5a-16-ce-86}CD:080053HmiuzpYehjhfBrecksville VA / Crille HospitalGeneral Surgery Office/Clinic Noteon 08-37-0813Eukshwd Surgery Office/Clinic NoteChief Complaint post operative follow up HPI Staff 8 day post operative follow up post lap appendectomy completed while in-patient at [facility]. Doing well. Minimal discomfort. Taking Ibuprofen [...] available Patient Education Exercise to Lose Weight, Rxwd-xc-Ugss Problem List/Past Medical History Ongoing Acute appendicitis [...] Use:., 10/13/2020 Family History Family history is negativeBrecksville VA / Crille HospitalComment on above: Result Comment: Electronically Signed By: LATANYA MCKENNA, Sushant Babb\Date and Time Signed: 10/13/20 13:39 EDTPatient Educationon 16-53-4249Lniagnu Education Exercise to Lose Weight Exercise and [...] Document Reviewed: 08/12/2011 ExitCare? Patient Information ?2013 [employer].[facility] / Crille HospitalProvider Letter FTon 52-52-9345Wbxqmdys Letter [facility] [place] October 13, 2020 [address] VER[address] [facility] [address] [place] [address] VINNY VERMA 2000 To Whom It May Concern, Please excuse above patient from work 10/14/20. Sincerely, Dr. Sushant Lott MD General SurgeryNormMercy Health Clermont HospitalPathology Noteon 10-08-2020 Pathology [id number]#1.00CD:127Brecksville VA / Crille HospitalFacesheeton 97-14-9644Sstywpple [id number]#1.00CD:[address] [place], [place] [address]Operative Reporton 68-56-9935Srpqspwct Report [id number]#1.00CD:[address] [place], [place] [address]HIV Screenon 33-35-4098WGQ Ag/AbNONREACTIVENONREACTIVEMer Health- [place], [place] Comment on above:No laboratory evidence of HIV infection. If acute HIV infection is suspected, consider testing for HIV-1 RNA. Basic Metabolic Panelon 85-05-3770Lcszw gap [Moles/Vol]11 mmol/L9 - 17 mmol/L [facility]- [place], KYBun/Cre Hparz30Zxuhe Health- [place], KYCalcium [Mass/Vol]9.3 mg/dL8.6 - 10.4 mg/dLMercy Health- [place], KYChloride [Moles/Vol]103 mmol/L98 - 107 mmol/LMercy Health- [place], KYCO2 [Moles/Vol]23 mmol/L20 - 31 mmol/LMercy Health- [place], KYCreatinine [Mass/Vol]0.57 mg/dL0.5 - 0.9 mg/dLMercy Health- [place], KYGFR >60>60 mL/minMercy Health- [place], KYGFR Non->60>60 mL/minMercy Health- [place], KYGlucose [Mass/Vol]88 mg/dL70 - 99 mg/dLMercy Health- [place], KYPotassium [Moles/Vol]4.6 mmol/L3.7 - 5.3 mmol/LMercy Health- [place], KYSodium [Moles/Vol]137 mmol/L135 - 144 mmol/LMercy Health- [place], KYUrea nitrogen [Mass/Vol]11 mg/dL6 - 20 mg/dLMercy Health- [place], KYCBCon 47-29-3593Brxqcrcisjt distribution width (RBC) [Ratio]11.7 %Low11.8 - 14.4 %[place], [place] Hematocrit (Bld) [Volume fraction]36.4 %36.3 - 47.1 %[place], [place] Hemoglobin (Bld) [Mass/Vol]12.2 g/dL11.9 - 15.1 g/dLAppleton [place], [place] Interpretation and review of laboratory resultsAbnormalTwin City HospitalH (RBC) [Entitic mass]31.4 pg25.2 - 33.5 pgAppleton City, KYMCHC (RBC) [Mass/Vol]33.5 g/dL28.4 - 34.8 g/dLAppleton [place], KYMCV (RBC) [Entitic vol] 93.8 fL82.6 - 102.9 fLAppleton City, KYPlatelet mean volume (Bld) [Entitic vol]9.2 fL8.1 - 13.5 fLAppleton City, KYPlatelets (Bld) [#/Vol]307 10*3/uL [place], KYRBC (Bld) [#/Vol]3.88 10*6/uLLow3.95 - 5.11 m/[place], KYWBC (Bld) [#/Vol]7.2 10*3/uLAppleton City, KYWBC (Bld) [#/Vol] 0.0 10*3/uL0.0 per 100 WBCAppleton City, KYMetabolic Panelon 05-04-2020 GFR/1.73 sq M predicted among non-blacks MDRD (S/P/Bld) [Vol rate/Area][place], KYComment on above:Stage 1: Some kidney damage [...] body mass. Additional eGFR calculator available at: http://[email or web address]/multiple_crcl_2012.htm Roxie 57-53-8256WKE Qn2.22 m[IU]/[facility]- [place], [place] Vital Signs Date TimeVital SignValuePerforming VacacmaodUvtahoql54-49-6572 13:22-0500Body mass index (BMI) [Ratio]38.38 kg/m9Yvvyl Law DO Work Phone: [phone] [place], [place] [address]Xhziojwlms09-87-8839 13:22-0500Body tejodv619.86 kgCorey Law DO Work Phone: [phone] [place], [place] [address]Hmldpwqimm25-58-2573 13:22-0500Diastolic blood hhfjywge17 mm[Hg]Mukul Law DO Work Phone: [phone] [place], [place] [address]Drjsavalyr19-01-8455 13:22-0500Systolic blood awecedof876 mm[Hg]Mukul Law DO Work Phone: [phone])[facility] [place], [place] [address]Ixdwhijoem89-43-2323 14:52-0500Body mass index (BMI) [Ratio]38.38 kg/m2Amy Oralia PA Work Phone: [phone] [place], [place] [address]Dfxlbwkqmj86-97-8500 14:52-0500Body erygzh780.86 kgAmy Oralia PA Work Phone: [phone] CenterQwvxfgdgbw72-77-9561 14:52-0500Diastolic blood mm[Hg]Regina Barton PA Work Phone: [phone] [place], [place] [address]Xmypxnwbfj97-78-3197 14:52-0500Systolic blood ayfzpfpy642 mm[Hg]Regina Caiey PA Work Phone: [phone]10-22-2025 15:05-0400Body mass index (BMI) [Ratio]37.47 kg/v0Kmxns Law DO Work Phone: [phone] [place], [place] [address]Seqjtpcplg76-83-9908 15:05-0400Body aldhii899.29 kgCorey Law DO Work Phone: [phone] [place], [place] [address]Dlflusdtvy09-43-2313 15:05-0400Diastolic blood eoesnevx21 mm[Hg]Mukul Law DO Work Phone: [phone] [place], [place] [address]Ysmrxzudvo71-20-7824 15:05-0400Systolic blood omjkqsnx156 mm[Hg]Mukul Law DO Work Phone: [phone] [place], [place] [address]Lawvhpwzrz42-24-9235 15:11-0400Body mass index (BMI) [Ratio]36.7 kg/w3Zxrfvcps Guillermo [employer] Work Phone: [phone] [place], [place] [address]Hlbtekewnh33-46-9867 15:11-0400Body aqskdf639.15 kgCeasar Millererly [employer] Work Phone: [phone] [place], [place] [address]Adefqzvqzs13-06-4687 15:11-0400Diastolic blood biyvutwe17 mm[Hg]Ceasar Millererly [employer] Work Phone: [phone] [place], [place] [address]Ubgwtdabev46-54-5055 15:11-0400Systolic blood ejueqvzo361 mm[Hg]Ceasardaly Millererly [employer] Work Phone: [phone] [place], [place] [address]Wxgbmmqgtt73-14-8198 15:50-0400Body mass index (BMI) [Ratio]36.64 kg/m2Amy Wilmot PA Work Phone: [phone] [place], [place] [address]Fygbpkmdka57-84-0438 15:50-0400Body fhazcv869.97 kgAmy Wilmot PA Work Phone: [phone] [place], [place] [address]Iatggconkz30-52-3145 15:50-0400Diastolic blood mm[Hg]Regina Oralia PA Work Phone: [phone] [place] [address]-22-2025 15:50-0400Systolic blood dopchgpf489 mm[Hg]Regina Wilmot PA Work Phone: [phone] [place], [place] [address]Cuchpgvzhk53-44-1015 15:44-0400Body mass index (BMI) [Ratio]36.61 kg/m2Amy Wilmot PA Work Phone: [phone] [place], [place] [address]Yppuporhxy98-02-5571 15:44-0400Body .88 kgAmy Wilmot PA Work Phone: [phone] [place] [address]-11-2025 15:44-0400Diastolic blood mm[Hg]Regina RUIZ Work Phone: [facility] CenterFdtbrinocp76-43-4788 15:44-0400Systolic blood fonfpiei949 mm[Hg]Regina RUIZ Work Phone: [phone] [place], [place] [address]Xaixechgfo51-08-6787 16:08-0400Body mass index (BMI) [Ratio]36.12 kg/x1Lrzfm Law DO Work Phone: [phone] [place], [place] [address]Bwbrqsxdzl13-80-5010 16:08-0400Body fuzhgz561.52 kgCorey Law DO Work Phone: [phone] [place], [place] [address]Umejhmuvbm35-32-9203 16:08-0400Diastolic blood zzjcobpr51 mm[Hg]Mukul Law DO Work Phone: [phone] [place], [place] [address]Csubqmcsjb55-39-6499 16:08-0400Systolic blood mm[Hg]Mukul Law DO Work Phone: [phone] [place], [place] [address]Ammjxteljb99-73-6015 15:58-0400Body mass index (BMI) [Ratio]35.96 kg/r5Qfqoi Law DO Work Phone: [phone] [place], [place] [address]Vjcobdbocs80-66-7025 15:58-0400Body nsvaqk947.06 kgCorey Law DO Work Phone: [facility] CenterSzvudtijpa15-10-8137 15:58-0400Diastolic blood capfcjln55 mm[Hg]Mukul Law DO Work Phone: [phone] [place], [place] [address]Rszctmwajn87-96-1548 15:58-0400Systolic blood mm[Hg]Mukul Law DO Work Phone: [phone] [place], [place] [address]Jscwlteyrx60-82-3557 14:06-0400Body mass index (BMI) [Ratio]34.99 kg/l4Mfnxk Law DO Work Phone: [phone] [place], [place] [address]Nvczrdlbwu87-24-3669 14:06-0400Body .34 kgCorey Law DO Work Phone: [phone] [place], [place] [address]Uozqmtdomk98-66-7989 14:06-0400Diastolic blood luklwseo00 mm[Hg]Mukul Law DO Work Phone: [phone] [place], [place] [address]Lbnhuiexld63-15-8010 14:06-0400Systolic blood vimaoedl788 mm[Hg]Mukul Law DO Work Phone: [phone])[facility] [place], [place] [address]Czjlltcjlt55-04-3136 16:41-0400Body mass index (BMI) [Ratio]34.19 kg/k2Kpchp Law DO Work Phone: 1(419)[facility] [place], [place] [address]Kvtridsxsb37-18-5448 16:41-0400Body eqtgdl03.07 kgCorey Law DO Work Phone: [phone])[facility] [place], [place] [address]Snzdxmcrif48-05-9846 16:41-0400Diastolic blood tpkhacsm24 mm[Hg]Mukul Law DO Work Phone: [phone] [place], [place] [address]Hrvfsqxqch44-54-9272 16:41-0400Systolic blood mm[Hg]Mukul Law DO Work Phone: [phone])[address] [place], [place] [address]5-28-2025 16:15-0400Body mass index (BMI) [Ratio]34.22 kg/g5Aobjs Law DO Work Phone: [phone])[facility] [place], [place] [address]Ihcmuolbzv99-15-2726 16:15-0400Body gbkbju24.16 kgCorey Law DO Work Phone: [phone])[facility] [place], [place] [address]Sxkympsidm29-08-8020 16:15-0400Diastolic blood mm[Hg]Mukul Law DO Work Phone: [phone] [place], [place] [address]5-28-2025 16:15-0400Systolic blood xqdrevyg971 mm[Hg]Mukul Law DO Work Phone: [phone] [place], [place] [address]Dmnguzlqme47-77-8068 15:15-0400Body mass index (BMI) [Ratio]33.57 kg/m2[facility]04-24-2025 15:15-0400Body .35 kgC[facility]04-24-2025 15:15-0400Diastolic blood yrqkugpx44 mm[Hg][facility]04-24-2025 15:15-0400Systolic blood rszwoxkn368 mm[Hg][facility]12-23-2024 16:25-0500Body mass index (BMI) [Ratio]32.93 kg/g8Pwjow Law DO Work Phone: [facility] CenterYfqrtyvqqz35-05-9452 16:25-0500Body kbalxu80.53 kgCorey Law DO Work Phone: [facility] CenterBmqvceaeex31-87-3352 03:06-0500Body .8024 kgDR MUKUL FOY .[facility] HospitalComment on above:Performed By: #### AFPMAT #### [facility] [address] [place] [address] Dr. Emilee Springer Encounters Encounter DateEncounter TypeCare ProviderFacilityStart: 06-02-2025 End: 94-83-4124Jshzuizf flow sheetCorey Law DO Work Phone: noJersey City Medical Centerue OBGYNComment on above:37 weeks gestation of ([facility]); Third trimester ([facility]); Insulin controlled gestational diabetes mellitus (GDM) during , antepartum ([facility]); Gestational diabetes mellitus (GDM), antepartum, gestational diabetes method of control unspecified([facility])Start: 06-02-2025 End: 69-80-2430kpfagtztscTYZGG FAZIONot AvailableStart: 05-29-2025 End: 38-01-5201Qecslseay Result EncounterCorey Law DO Work Phone: [employer] External Department UnsolicitedStart: 05-29-2025 End: 65-64-5774Kbosqjscf Result EncounterCorey Law DO Work Phone: noms External Department UnsolicitedStart: 05-28-2025 End: 25-70-3955Jahvllxt flow sheetRegina RUIZ Work Phone: noms Heri OBGYNComment on above:Third trimester ([facility]); 36 weeks gestation of ([facility])Start: 05-28-2025 End: 48-99-4389rqyjrxekohJWD ORALIAEfrain AvailableStart: 05-28-2025 End: 79-91-9938Ncvdfvihj Result EncounterAmy Oralia PA Work Phone: noms External Department UnsolicitedStart: 05-28-2025 End: 07-71-6349Mxupyysav Result EncounterRegina Ciatisha RUIZ Work Phone: noms External Department UnsolicitedStart: 05-21-2025 End: 63-02-6969Tdaoovowk Result EncounterCorey Law DO Work Phone: noms External Department UnsolicitedStart: 05-21-2025 End: 85-03-4343Ydjndggax Result EncounterCorey Law DO Work Phone: noms External Department UnsolicitedStart: 05-14-2025 End: 12-41-3981khcxwdganrRIIAL FAZIONot AvailableStart: 05-14-2025 End: 32-91-2524Yjiimcif flow sheetCorey Law DO Work Phone: NOMQ Lopez OBGYNComment on above:Third trimester ([facility]); 34 weeks gestation of ([facility]); Insulin controlled gestational diabetes mellitus (GDM) during , antepartum ([facility]); Gestational diabetes mellitus (GDM), antepartum, gestational diabetes method of control unspecified([facility])Start: 05-14-2025 End: 90-83-0796Mntdof flowsheetCorey Law DO Work Phone: NOMS Lopez OBGYNStart: 05-14-2025 End: 65-71-4837Cvknul flowsheetCorey Law DO Work Phone: noMS Lopez OBGYNStart: 05-14-2025 End: 05-07-0751Sgpdsiiuf Result EncounterCorey Law DO Work Phone: noms External Department UnsolicitedStart: 05-12-2025 End: 89-69-0511Yxakckjdk Result EncounterCorey Law DO Work Phone: NOCA External Department UnsolicitedStart: 05-12-2025 End: 12-54-9541Umeqfjpym Result EncounterCorey Law DO Work Phone: NOAG External Department UnsolicitedStart: 05-08-2025 End: 08-54-6699Pksqmflir Result EncounterCorey Law DO Work Phone: NOAZ External Department UnsolicitedStart: 05-08-2025 End: 95-44-8375Zdeudhwdu Result EncounterCorey Law DO Work Phone: NOHB External Department UnsolicitedStart: 04-30-2025 End: 23-11-7056ofbltbodkcSPIVKHYN EBERLYNot AvailableStart: 04-30-2025 End: 36-57-8597Glzelsux flow sheetCeasar Li NP Work Phone: NOMS Lopez OBGYNComment on above:Third trimester ([facility]); 32 weeks gestation of ([facility])Start: 04-30-2025 End: 22-88-1684Defrmd flowsheetCeasar Li NP Work Phone: NOMS Lopez OBGYNStart: 04-30-2025 End: 33-49-7866Tcybvd flowsheetCeasar Li [employer] Work Phone: NOMS Lopez OBGYNStart: 04-30-2025 End: 60-42-2761Arsmnidsb Result EncounterCorey Law DO Work Phone: NOMS External Department UnsolicitedStart: 04-14-2025 End: 30-14-0013cepxjwmoctYEH RAMEYNot AvailableStart: 04-14-2025 End: 24-62-9641Kzdverzq flow sheetRegina RUIZ Work Phone: NOMS Heri OBGYNComment on above:Third trimester ([facility]); 30 weeks gestation of ([facility])Start: 04-14-2025 End: 38-90-5898Beceru Darek RUIZ Work Phone: NOMS Liriano OBGYNStart: 04-14-2025 End: 51-22-8016Dbhofe Darek RUIZ Work Phone: NOMS Liriano OBGYNStart: 04-05-2025 End: 71-53-2651Magtwyuqg Result EncounterRegina RUIZ Work Phone: NO External Department UnsolicitedStart: 04-05-2025 End: 85-68-1394Jodtkcmjh Result EncounterRegina RUIZ Work Phone: no External Department UnsolicitedStart: 04-03-2025 End: 54-70-9008uwatzgxkmvXWE Lesa AvailableStart: 04-03-2025 End: 95-86-6373Nhiponvz flow Chuy RUIZ Work Phone: NOMS Liriano OBGYNComment on above:28 weeks gestation of ([facility]); Third trimester ([facility]); Dizziness; Gestational diabetes mellitus (GDM), antepartum, gestational diabetes method of control unspecified([facility]); History of miscarriage; Anemia, unspecified type; UTI symptomsStart: 04-03-2025 End: 10-98-9173Irclkz Darek RUIZ Work Phone: NOMS Liriano OBGYNStart: 04-03-2025 End: 10-70-6469Ckwwzw Darek RUIZ Work Phone: NOMS Kendallue OBGYNStart: 03-12-2025 End: 96-85-0753rfxiduswfxTGEZB FAZIONot AvailableStart: 03-12-2025 End: 38-32-8149Vhuqvhdn flow sheetCorey Law DO Work Phone: NOMS Lopez OBGYNComment on above:25 weeks gestation of ([facility]); Second trimester ([facility]); Gastroesophageal reflux disease without esophagitisStart: 03-12-2025 End: 44-36-2382Zagyct flowsheetCorey Law DO Work Phone: NOMS Heri OBGYNStart: 03-12-2025 End: 85-49-5585Oxsdsc flowsheetCorey Law DO Work Phone: NOMS Lopez OBGYNStart: 02-26-2025 End: 16-85-7302gnyxnunkjoDMYKR FAZIONot AvailableStart: 02-26-2025 End: 51-47-4861Zfljboct flow sheetCorey Law DO Work Phone: NOMS Heri OBGYNComment on above:23 weeks gestation of ([facility]); Elevated blood sugar level; Gastroesophageal reflux disease without esophagitisStart: 02-26-2025 End: 22-99-8187Ziysgk flowsheetCorey Law DO Work Phone: NOMS Heri OBGYNStart: 02-26-2025 End: 20-05-7547Uplgyo flowsheetCorey Law DO Work Phone: noMS Lopez OBGYNStart: 02-11-2025 End: 77-35-5269Rkmcdsuk flow sheetCorey Law DO Work Phone: NOMS BCP OBComment on above:Second trimester ([facility]); 20 weeks gestation of ([facility])Start: 02-11-2025 End: 93-03-9017cqteeqnnciQFUUQ FAZIONot AvailableStart: 01-15-2025 End: 50-02-9427gqrhaaowsoBRCXK FAZIONot AvailableStart: 01-15-2025 End: 95-03-0677Wcjtqyam flow sheetCorey Law DO Work Phone: NOMS BCP OBComment on above:Second trimester ([facility]); 17 weeks gestation of ([facility]); Vaginal discharge; STD exposure; Screening, , for anatomic survey ([facility]); Gastroesophageal reflux in ([facility]); Gestational diabetes mellitus (GDM), antepartum, gestational diabetes method of control unspecified([facility])Start: 01-15-2025 End: 02-39-3914Rciilx flowsheetCorey Law DO Work Phone: noMS BCP OBStart: 01-15-2025 End: 95-57-9935Xhjfrk flowsheetCorey Law DO Work Phone: noms BCP OBStart: 01-15-2025 End: 77-43-0455Hahrebpe Result EncounterAmy Oralia RUIZ Work Phone: noMS External Department UnsolicitedStart: 01-07-2025 End: 95-08-3006mhnnndlsnjFWSCVLShanda Lamas [facility] HospitalStart: 01-07-2025 End: 92-28-1911Aslkvcajdu hospital visit by Kayden Steele CNP Work Phone: [facility] LABStart: 12-23-2024 End: 61-44-7424Ixvotwxjl Result EncounterCorey Law DO Work Phone: noMS External Department UnsolicitedStart: 12-23-2024 End: 31-85-5313Vgxokilif Result EncounterCorey Law DO Work Phone: noms External Department UnsolicitedStart: 12-20-2024 End: 46-31-1912ftnselomsqXNDAFPHallie Lamas [facility] HospitalStart: 12-20-2024 End: 47-26-2695Hmiqmojfdu hospital visit by [facility] Pinky [facility] UltrasoundComment on above:Subchorionic hematoma, antepartum, first trimester, not applicable or unspecified fetusStart: 12-18-2024 End: 58-53-1881qejdlbisbaGYMJD FAZIONot AvailableStart: 12-18-2024 End: 54-37-7069Jmbbsqom flow sheetCorey Law DO Work Phone: noms BCP OBComment on above:Second trimester ; 12 weeks gestation of ; Subchorionic hematoma in first trimester, single or unspecified fetus; Diabetes mellitus screeningStart: 12-18-2024 End: 23-38-1883Oedmat flowsheetCorey Law DO Work Phone: noms BCP OBStart: 12-18-2024 End: 57-72-2179Lerisg flowsheetCorey Law DO Work Phone: noms BCP OBStart: 11-14-2024 End: 27-10-9737Zdqmyl outpatient visit 5 minutesNoms Bcp Ob Law NurseNOMS BCP OBComment on above:GA: 2i0jCduoa: 11-14-2024 End: 48-01-4207ipjjoiksidYTRGC FAZIONot AvailableStart: 07-15-2024 End: 04-29-2217Chfguar encounter procedureCorey Law DO Work Phone: NOMS HealthcareStart: 07-15-2024 End: 93-92-6430Tztsafrd preventive med est patient 18-39 yrsCorey Law DO Work Phone: noms BCP OBComment on above:Well woman exam with routine gynecological examStart: 07-15-2024 End: 57-76-9971vcadzzfhffFTXWO FAZIONot AvailableStart: 07-15-2024 End: 75-47-8807Mklmmsxyi Result EncounterCorey Law DO Work Phone: noms External Department UnsolicitedStart: 07-15-2024 End: 49-50-3812Lnuduuwwf Result EncounterCorey Law DO Work Phone: noms External Department UnsolicitedStart: 05-20-2024 End: 67-85-2277airtirtkciQSSLBIHallie Lamas [facility] HospitalStart: 05-20-2024 End: 83-01-1802Wgvfusxiiw hospital visit by Kayden Steele CNP Work Phone: mthz LaboratoryComment on above:Elevated liver enzymes; Mixed hyperlipidemiaStart: 03-06-2024 End: 87-50-7254ovfffltrjjIYWBOQHallie Lamas [facility] HospitalStart: 02-16-2024 End: 00-40-6114qdsimxpqtoXFEMSZ M VAUGHNMercy [facility] HospitalStart: 08-06-2023 End: 69-51-3317bwywpbribzScnzhnjw:[facility] HospitalStart: 07-11-2023 End: 74-36-8197enoqvqphtkQHCH [facility] Hospitaltart: 03-20-2023 End: 66-04-2303bztlbmtggdWITRB [facility] Hospitaltart: 12-17-2022 End: 37-75-6449vhdgcghvpkKM MUKUL LAW .Facility:K5Uhxdy: 12-12-2022 End: 99-12-0591slklvuyfshTX KYLIE AVILAPAULGage .Facility:B5Wiera: 12-10-2022 End: 43-64-8222ryhoarawjzLZ MUKUL LAW .Facility:N9Ivdlz: 10-31-2022 End: 40-63-6751clmwfoextdVY MUKUL LAW .Facility:P5Lyrlr: 10-22-2022 End: 14-29-3435thzefakaatCFI ORALIA .Facility:G2Ljazu: 10-15-2022 End: 73-90-4996jglwpusvkcOY MUKUL LAW .Facility:W1Djgzq: 09-12-2022 End: 12-21-5546osezvpgtutHW MUKUL LAW .Facility:L2Sxxtr: 09-10-2022 End: 48-67-4446zcpozzetqhFE MUKUL LAW .Facility:S3Iphjm: 08-29-2022 End: 16-25-9945fgikrjtcbwHC MUKUL LAW .Facility:Z9Yrdmi: 08-01-2022 End: 24-72-9955Zktqufgolh [facility] LaboratoryStart: 07-04-2022 End: 67-68-6433nyyzlwrsutFY MUKUL LAW .Facility:B5Vbzav: 06-23-2022 End: 94-38-6318kmmzmzspwiYE YELENA Calicility:S2Xwxax: 06-09-2022 End: 40-83-5093oflinqzlweEV MUKUL LAW .Facility:W4Apjin: 06-02-2022 End: 86-27-6093Whuvhduklz hospital visit by Kayden Steele CNP Work Phone: mthz LaboratoryStart: 04-18-2022 End: 18-43-3157bpaldyzoxpOM MUKUL FOY .Facility:F5Movws: 09-23-2021 End: 97-97-6062eatzqjhhooUGRVR CHECO [facility]ilesdebbyerl[facility] HospitalStart: 09-08-2021 End: 64-39-5886gwzflvdkbgTIJQW R FAZIORiverside Zoroastrian HospitalStart: 08-25-2021 End: 06-54-6591dwvmhzrcboAFMIV R FAZIORiverside Zoroastrian HospitalStart: 08-19-2021 End: 99-72-9193rlydqmvxsuTAVVB R FAZIORiverside Zoroastrian HospitalStart: 08-10-2021 End: 50-64-0830Svmmlpebia hospital visit by Kayden Rodriguez APRN - CALLIOPE PLAYER Work Phone: mthz LaboratoryComment on above:AmenorrheaStart: 11-25-2020 End: 70-14-4107Ascgqkyktd hospital visit by [facility] RadiologyComment on above:Frequent UTIStart: 05-04-2020 End: 84-78-3632Cnxpbrllup hospital visit by Kayden Chapman LaboratoryComment on above:Encounter for screening for HIV; Other fatigue; Wellness examinationStart: 03-03-2020 End: 78-36-7706Wtvttfgxcx hospital visit by Brayden Dickinson LaboratoryComment on above:Screening for cervical cancer; Encounter for annual routine gynecological examination Procedures DateProcedureProcedure DetailPerforming ClinicianStart: 67-54-6783Mkgcn dip stick/tablet rgnt non-auto w/o micrscpCorey Law DO Work Phone: Start: 89-99-6682NJ OB BPP W NON-STRESSCorey Law DO Work Phone: Start: 14-47-6374Ynexl dip stick/tablet rgnt non-auto w/o micrscpAmy Oralia RUIZ Work Phone: Start: 96-53-4534PHNUW GP B CULTURE+RFLXAaric RUIZ Work Phone: Start: 20-19-8208LH OB BPP W NON-STRESSCorey Law DO Work Phone: Start: 25-93-9339SZ OB BPP W NON-STRESSCorey Law DO Work Phone: Start: 18-29-3196Aoevd dip stick/tablet rgnt non-auto w/o micrscpCorey Law DO Work Phone: Start: 03-19-5212BSE UA (CLEAN/CATCH) DOMESTIC HOUSEKEEPER/MICRO IF IND.Mukul Law DO Work Phone: Start: 46-51-1143XO OB BPP W NON-STRESSCorey Law DO Work Phone: Start: 10-41-7779DC OB BPP W NON-STRESSCorey Law DO Work Phone: Start: 14-59-5076Idiwp dip stick/tablet rgnt non-auto w/o micrscpKristina Guillermo [employer] Work Phone: Start: 49-25-2045Ofjin dip stick/tablet rgnt non-auto w/o micrscpAaric RUIZ Work Phone: Start: 41-01-7513IN OB GROWTHRegina RUIZ Work Phone: Start: 02-04-4948JJT CBC WITH AUTO DIFFRegina RUIZ Work Phone: Start: 71-35-8641Hoswo dip stick/tablet rgnt non-auto w/o micrscpAmy Oralia RUIZ Work Phone: Start: 97-24-2824Ebyig dip stick/tablet rgnt non-auto w/o micrscpCorey Law DO Work Phone: Start: 77-45-2385Gmgys dip stick/tablet rgnt non-auto w/o micrscpCorey Law DO Work Phone: Start: 34-74-8208Wtpwx dip stick/tablet rgnt non-auto w/o micrscpCorey Law DO Work Phone: Start: 27-25-7788PKKDWJQJK VAGINITIS (HTRX)Regina RUIZ Work Phone: Start: 91-79-6874Lneoc count complete automatedAmy L Oralia CAMPOS Work Phone: Start: 28-75-3599QL OB LESS THAN 14 WEEKS SINGLE OR FIRST GESTATIONCorey Law DO Work Phone: Start: 25-29-7492Lwxge dip stick/tablet rgnt non-auto w/o micrscpCorey Law DO Work Phone: Start: 78-84-5208Qcqdd dip stick/tablet rgnt non-auto w/o micrscpCorey Law DO Work Phone: Start: 22-74-9011YAB,APTIMA HPV,AGE GDLNCorey Law DO Work Phone: Start: 52-25-2014Xcnfygvppin observation [Identifier] in Cervix by Cyto Leonora Rodriguez TYPING CHECKER - [employer] PLAYER Work Phone: Start: 49-92-3669Wdcid panelYnes Rodriguez TYPING CHECKER - [employer] PLAYER Work Phone: Start: 46-20-7868Gmbbsiduzszld metabolic panelYnes Rodriguez TYPING CHECKER - [employer] PLAYER Work Phone: Start: 73-44-3952Gkjbqgbmkqh observation [Identifier] in Cervix by Cyto Gurjit RoomStart: 83-79-7777Bpkppduf Navid Barroso TYPING CHECKER - CALL[employer]OPE PLAYER Work Phone: Start: 64-72-4407Crkvkjmtfbuw chorionic quantitative Mukul Bill Foy MD Work Phone: Start: 04-93-5278Qqzxcyewtcxj chorionic quantitative Berto Checoyves Live TYPING CHECKER - CNM Work Phone: Start: 46-75-0519Fz retroperitoneal real time w/image completeLorena Ricks TYPING CHECKER - CALLIOPE PLAYER Work Phone: Start: 35-67-7768Pbxncyqw hiv-1&hiv-2 single result Ynes Quilesughn Work Phone: Start: 27-95-5838Vhdic of thyroid stimulating hormone tshYnes Quilesughn Work Phone: Start: 51-94-2355Vbwqr metabolic panel calcium total Ynes Fischern Work Phone: Start: 72-99-6948Nyjuf count complete automatedYnes Fischern Work Phone: Start: 12-12-1426Qfbtvxdwfwb observation [Identifier] in Cervix by Cyto stainHarrycortezgoran Fede TYPING CHECKER - CALLIOPE PLAYER Work Phone: Plan of Treatment DateCare ActivityDetailAuthorStart: 93-18-3291Fcnozrxwc for malignant neoplasm of cervixPap smearBon [facility] CenterStart: 21-38-7011Hnltswxob for malignant neoplasm of cervixPap smearBon [facility] CenterStart: 08-07-[address] Mary'S HospitalStart: 07-28-2025 End: 12-44-3626Oscreim encounter procedureNOMS BCP OBStart: 06-02-2025 End: 91-27-9027Hgeeidu encounter /10/2025 1:00 PM EST Routine [facility] [address] [place], [id number] Mukul Foy, [address] [place], [place] [id number] [facility] Heri OBGYNStart: 05-28-2025 End: 74-42-7126Wqllxop encounter nazgfydwj11/05/2025 2:30 PM EST Routine [facility] [address] [place], [id number] Regina Barton PA [address] [place] [address] [facility] Heri OBGYNStart: 05-28-2025 End: 22-61-3509IFAJXNR, GROUP B STREP WITH SUSCEPTIBLITYCULTURE, GROUP B STREP WITH SUSCEPTIBLITY Lab Routine Third trimester ([facility]) Expected: 05/28/2025, Expires: 05/28/2026[facility] Work Phone: comment on above:Expected: 05/28/2025, Expires: 05/28/2026Start: 05-28-2025 End: 28-11-2442Pevswrnsewsa / ancillary services nanokcwrih81/05/2025 2:00 PM EST Ancillary Procedure [facility]i SANTO [address] [place] [address] [phone] Heri OBGYNStart: 05-32-5240Svzhb panelLipids [facility] HospitalStart: 05-14-2025 End: 99-31-3747Sovjiub encounter vdagmjiqf20/22/2025 2:50 PM EDT Routine NOMRenzo SANTO [address] [place], [id number] Mukul Foy DO [address] [place] [address] [facility] Heri OBGYNStart: 05-14-2025 End: 62-78-2782OF for pregnancyUS OB follow up transabdominal approach Imaging Routine Insulin controlled gestational diabetes mellitus (GDM) during , antepartum ([facility]) Expected: 05/14/2025, Expires: 09/14/2025[facility] Work Phone: comment on above:Expected: 05/14/2025, Expires: 09/14/2025Start: 05-14-2025 End: 12-96-0712Pxsxdlt encounter uatbaftyi71/22/2025 11:40 AM EDT Office Visit [facility] [address] [place] [address] Ynes Rodriguez, TYPING CHECKER - CALLIOPE PLAYER [address] [place] [address] 6 month f/[facility] Primary CareComment on above:6 month f/uStart: 04-30-2025 End: 12-32-1864Lzjsnlp encounter nqfbtegll30/08/2025 3:00 PM EDT Routine [facility] [address] [place], [id number] Ceasar Li, ASHWIN [address] [place] [address] NOM[facility] Heri OBGYNStart: 04-14-2025 End: 99-80-9781Nlkdljb encounter mtdcoeqsz69/22/2025 3:20 PM EDT Routine [facility] [address] [place], [id number] Regina Barton PA [address] [place] [address] N[facility] Heri OBGYNStart: 04-03-2025 End: 34-79-4356Omeqplw encounter lzvfukljw30/11/2025 3:30 PM EDT Routine [facility] [address] [place], [id number] Regina Barton PA [address] [place] [address] NOM[facility] Heri OBGYNStart: 04-03-2025 End: 88-84-2399VAT W Auto Differential panel - BloodCBC and differential Lab Routine Dizziness Anemia, unspecified type Expected: 04/03/2025 (Approximate), Expires: 04/03/2026NOWA HealthcareComment on above:Expected: 04/03/2025 (Approximate), Expires: 04/03/2026Start: 04-03-2025 End: 63-58-8861DC biophysical profile w non stress testUS biophysical profile w non stress test Imaging Routine 28 weeks gestation of ([facility]) Third trimester ([facility]) Gestational diabetes mellitus (GDM), antepartum, gestational diabetes method of control unspecified ([facility]) History of miscarriage Expected: 04/03/2025 (Approximate), Expires: 10/01/2025NOW[facility] HealthcareComment on above:Expected: 04/03/2025 (Approximate), Expires: 10/01/2025Start: 04-03-2025 End: 25-00-9715LX for pregnancyUS OB follow up transabdominal approach Imaging Routine 28 weeks gestation of ([facility]) Third trimester ([facility]) Gestational diabetes mellitus (GDM), antepartum, gestational diabetes method of control unspecified ([facility]) History of miscarriage Expected: 04/03/2025, Expires: 08/03/2025[facility] Work Phone: comment on above:Expected: 04/03/2025, Expires: 08/03/2025Start: 46-65-8099YUSNT-19 Vaccine ( season)COVID-19 Vaccine ( season)[facility] HealthcareStart: 47-55-5597Oyjvreqjo vaccinationNOMS HealthcareStart: 45-02-6239Umbfeahpp vaccinationFlu vaccine (Season Ended)[facility] Huerta HealthStart: 02-11-2025 End: 82-99-8672Rxdpztv encounter fdcgvylxn66/22/2025 2:10 PM EDT Routine [facility] OB [address] [place] [phone] Mukul Foy, DO [address] [place] [address] [facility] BCP OBStart: 02-11-2025 End: 66-47-1397Kttqmzflzlqm / ancillary services fljewdaezs13/22/2025 1:00 PM EDT Ancillary Procedure [facility] OB [address] [place] [phone] NOM[facility] BCP OBStart: 01-15-2025 End: 81-86-7526Ljwaqfc encounter cicxirsma14/25/2025 3:50 PM EDT Routine [facility] OB [address] [place] [phone] Mukul Foy, DO [facility] [place], [place] [id number] NOM[facility] BCP OBStart: 01-15-2025 End: 49-93-3344Wssui fetoprotein, maternalAlpha fetoprotein, maternal Lab Routine Second trimester ([facility]) 17 weeks gestation of ([facility]) Expected: 01/15/2025 (Approximate), Expires: 07/17/2025[facility] Comment on above:Expected: 01/15/2025 (Approximate), Expires: 07/17/2025Start: 01-15-2025 End: 49-87-3767DP for pregnancyUS OB 14+ weeks anatomy scan Imaging Routine Screening, , for anatomic survey ([facility]) Expected: 01/15/2025, Expires: 04/17/2025[facility] CenterComment on above:Expected: 01/15/2025, Expires: 04/17/2025Start: 12-18-2024 End: 15-25-9030Lufajud encounter nvrsivucr03/28/2025 3:40 PM EDT Routine [facility] [address] [facility] [facility] [place] [place] [phone] Mukul Foy, DO [address] [place], [place] [address] NOM[facility] BCP OBStart: 12-18-2024 End: 43-81-2095KWL panel - Blood by Automated countCBC Lab Routine Diabetes mellitus screening Expected: 12/18/2024 (Approximate), Expires: 12/18/2025[facility] Work Phone: comment on above:Expected: 12/18/2024 (Approximate), Expires: 12/18/2025Start: 12-18-2024 End: 45-45-5702Jnixkzcwmmq of glucose 1 hour after glucose challenge for glucose tolerance testGlucose tolerance, 1 hour Lab Routine Diabetes mellitus screening Expected: 12/18/2024 (Approximate), Expires: 12/18/2025NOW[facility] HealthcareComment on above:Expected: 12/18/2024 (Approximate), Expires: 12/18/2025Start: 12-18-2024 End: 21-54-0324ED Pelvis transvaginalUS OB transvaginal Imaging Routine Subchorionic hematoma in first trimester, single or unspecified fetus Expected: 12/18/2024, Expires: 03/20/2025[facility] Work Phone: comment on above:Expected: 12/18/2024, Expires: 03/20/2025Start: 11-14-2024 End: 66-89-2956JOZ/RhABO/Rh Lab Routine Missed menses , unspecified gestational age Expected: 11/14/2024 (Approximate), Expires: 11/14/2025[facility] HealthcareComment on above:Expected: 11/14/2024 (Approximate), Expires: 11/14/2025Start: 11-14-2024 End: 38-74-1562Goqho type and Indirect antibody screen panel - BloodType and screen Lab Routine Missed menses , unspecified gestational age Expected: 11/14/2024 (Approximate), Expires: 11/14/2025[facility] HealthcareComment on above:Expected: 11/14/2024 (Approximate), Expires: 11/14/2025Start: 11-14-2024 End: 93-15-2024Wqccr of abuse panel - Urine by Screen methodRapid drug screen, urine Lab Routine , unspecified gestational age Encounter for supervision of normal first in first trimester Expected: 11/14/2024 (Approximate), Expires: 11/14/2025[facility] HealthcareComment on above:Expected: 11/14/2024 (Approximate), Expires: 11/14/2025Start: 11-06-2024 End: 80-02-5830PP Pelvis transvaginalUS OB transvaginal Imaging Routine Missed menses Expected: 11/06/2024, Expires: 02/05/2025[facility] Work Phone: comment on above:Expected: 11/06/2024, Expires: 02/05/2025Start: 10-16-2024 End: 09-58-1251Ullvowa encounter kzfzjepti80/26/2025 1:40 PM EDT Office Visit [address] [place] [address] Ynes Rodriguez, TYPING CHECKER - CALLIOPE PLAYER [address] [place] [address] [address] [place] [address] [facility] Primary CareComment on above:WellnessStart: 76-14-9083Vhkvqonsbe ScreenDepression ScreenBon Secours Samaritan North Health CenterStart: 06-04-2024 End: 86-47-5050Kkjxigr encounter dxwumlmkn01/12/2024 11:45 AM EST Office Visit [address] [place] [address] Jose Cruz Raza MD [address] [place] [address] Dr[address] [place] [address] wt managementKindred Hospital Dayton CareComment on above:wt managementStart: 05-22-2024 End: 13-79-2599Vsnzhxj encounter djxdfivfy24/30/2024 11:00 AM EDT Office Visit [address] [place] [address] Ynes Rodriguez, TYPING CHECKER - CALLIOPE PLAYER [address] [place] [address] [address] [place] [address] LFT + HLD f/u(RS 10/17/23 appt)[facility] Primary CareComment on above:LFT + HLD f/u(RS 10/17/23 appt)Start: 44-90-5485FENWL-19 Vaccine ( season)COVID-19 Vaccine ( season)[facility] HospitalStart: 27-63-5160IFVTI-19 Vaccine ( season)COVID-19 Vaccine ()[facility] CenterStart: 91-32-2519Ggaugbipx vaccinationInfluenza Vaccine (#1)[facility] HealthcareStart: 50-79-7682Llljiffjc vaccinationFlu vaccine (#1)[facility] HospitalStart: 56-27-7875Ffoqaulsx for malignant neoplasm of cervixRegional Medical Center HealthStart: 29-82-4200Bnlenordxk ScreenDepression ScreenBON MCKITRICK HOSPITALStart: 07-11-2022 End: 33-18-4699Nytagkv encounter fgwbixatu77/19/2022 Office Visit Primary Care Ynes Rodriguez, TYPING CHECKER - CALLIOPE PLAYER [address] [place] [address] [facility] Start: 05-19-2022 End: 99-63-3697Vmglrxo encounter aunwmoldp03/27/2022 Office Visit Obstetrics and Gynecology Berto Live, TYPING CHECKER - CN [address] [place] [address] [facility]OLOG[facility] Part [facility] HospitalStart: 03-18-2022 End: 83-59-7663Aoxinsw encounter habwjorfg99/26/2022 Office Visit Family Medicine Ynes Rodriguez TYPING CHECKER - CALLIOPE PLAYER [address] [place] [address] [facility] FAMILY MED[facility] Part [facility] HospitalStart: 58-38-5261Emrxnkezw C screeningHepatitis C screenMercy HealthComment on above:Postponed from 1998 (Patient Refused)Start: 19-62-5492Gmemqbgoq vaccinationFlu vaccine (#1)[facility] Systemart: 56-48-7600Yvsgerccz for Chlamydia trachomatisSamaritan North Health CenterStart: 09-24-2021 Influenza vaccinationFlu vaccine (Season Ended)[facility] Work Phone: comment on above:Postponed from 03/24/2021 (Patient Refused)Start: 77-96-4640Ygfjlcqkke MonitoringDepression [facility] Start: 42-19-4681WYKTC-19 Vaccine (3 - Booster for Pfizer series)COVID-19 Vaccine (3 - Booster for Pfizer series)[facility] Centerart: 26-26-7175WAoJ/Tdap/Td vaccine (7 - Td or Tdap)DTaP/Tdap/Td vaccine (7 - Td or Tdap)[facility] Centerart: 49-31-0187JHiO/Tdap/Td vaccine (7 - Td)DTaP/Tdap/Td vaccine (7 - Td)[facility]: 56-97-2055Cfbpelxdd vaccinationFlu vaccine (#1)[facility] Start: 36-29-1186Pgkjaogae for Chlamydia trachomatisChlamydia screenMorrow County Hospitalart: 22-41-7144WNUSH-19 Vaccine (3 - Booster for Pfizer series) COVID-19 Vaccine (3 - Booster for Pfizer series)[facility]ITALStart: 02-09-2021 End: 18-42-3794Yckduug encounter socvprlao14/20/2021 Office Visit Family Medicine Ynes Rdoriguez, TYPING CHECKER - CALLIOPE PLAYER [address] [place] [address] [phone] [facility] Part [facility]art: 11-30-2020 End: 76-69-7067Ggzshdu encounter zckigmafh08/10/2021 Office Visit Urology Chris Moe MD [address], [address] [place], [place] [phone] [facility] UROLOGY Part [facility] Hospital[facility]art: 05-28-2020 End: 53-05-7782Ybvloieouyxz40/05/2020 Telemedicine Family Medicine Ynes Rodriguez, TYPING CHECKER - CALLIOPE PLAYER [address] [place] [address] [phone] [facility] Part of [facility] Start: 28-55-9804Pfbvzhejp vaccinationFlu vaccine (#1)[facility]: 06-31-0384Qihynivfu for Chlamydia trachomatisChlamydia [facility]: 06-78-1537Wizwudjfr for malignant neoplasm of cervixCervical cancer [facility]: 63-52-1410Xoebumryi B Vaccines (1 of 3 - 19+ 3- dose series)Hepatitis B Vaccines (1 of 3 - 19+ 3-dose series)[facility] Start: 12-05-7391Hixyigqtz C screeningHepatitis C screenBON [facility]OURS [facility] Start: 60-48-7381SZMNI-19 Vaccine (1)COVID-19 Vaccine (1)[facility] Work Phone: start: 41-91-6693UYK screeningHIV [facility]: 11-12-6787WHQ Vaccines (1 - 3-dose series)HPV Vaccines (1 - 3-dose series)[facility] HealthcareStart: 27-37-6419Odyjtkf of varicella vaccinationVaricella Vaccines (1 of 2 - 13+ 2-dose series)[facility] HealthcareStart: 2005 DTaP/Tdap/Td Vaccines (1 - Tdap)DTaP/Tdap/Td Vaccines (1 - Tdap)[facility] Start: 93-18-4145MJD Vaccines (1 of 1 - Standard series)MMR Vaccines (1 of 1 - Standard series)[facility] HealthcareStart: 01-61-3789Szckckgxc C screeningHepatitis C [facility] Phone: bacteria identified in Urine by CultureUrine culture Microbiology Routine Missed menses Ordered: 11/14/2024[facility] HealthcareComment on above:Ordered: 5Bacteria identified in Urine by CultureUrine culture Microbiology Routine UTI symptoms Ordered: 04/03/2025[facility] HealthcareComment on above:Ordered: 04/03/2025 End: 03-03-2020C.trachomatis N.gonorrhoeae DNA, Thin PrepC.trachomatis N.gonorrhoeae DNA, Thin Prep Microbiology Routine Encounter for annual routine gynecological examination 1 Occurrences starting 03/03/2020 until 03/03/2020 [facility], MARIELAComment on above:1 Occurrences starting 03/03/2020 until 03/03/2020C.trachomatis N.gonorrhoeae DNA, Thin PrepC.trachomatis N.gonorrhoeae DNA, Thin Prep Microbiology Routine Encounter for annual routine gynecological examination 03/03/2020 5:[address] [facility], KYCBC W Auto Differential panel - BloodCBC and differential Lab Routine Missed menses , unspecified gestational age Ordered: 11/14/2024[facility] HealthcareComment on above: Ordered: 5CHLAMYDIA TRACHOMATIS (GENITO/STI)CHLAMYDIA TRACHOMATIS (GENITO/STI) Lab Routine STD exposure Ordered: 01/15/2025[facility] HealthcareComment on above:Ordered: 5Cytology Cervical or vaginal smear or scraping study Pap Smear Pathology and Cytology Routine Well woman exam with routine gynecological exam Ordered: 07/15/2024[facility] Healthcare Work Phone: comment on above:Ordered: 07/15/2024 End: 87-59-6464Iujpjzhvbysha procedure, preparation of smear, genital sourcePAP SMEAR Lab Routine Screening for cervical cancer 1 Occurrences starting 03/03/2020 until 03/03/2020[facility], MARIELAComment on above:1 Occurrences starting 03/03/2020 until 03/03/2020Hemoglobin A1c/Hemoglobin.total in Blood Hemoglobin A1c Lab Routine Missed menses , unspecified gestational age Ordered: 11/14/2024[facility] HealthcareComment on above:Ordered: 11/14/2024Hepatitis B virus surface Ag [Presence] in Serum or Plasma by ImmunoassayHepatitis B surface antigen Lab Routine Missed menses , unspecified gestational age Ordered: 11/14/2024[facility] HealthcareComment on above:Ordered: 11/14/2024Hepatitis C virus Ab [Presence] in Serum or Plasma by ImmunoassayHepatitis C antibody Lab Routine Missed menses , unspecified gestational age Ordered: 11/14[facility] HealthcareComment on above:Ordered: 11/14/2024HIV-1/HIV-2 antigen/antibody combination immunoassayHIV-1 and HIV-2 antibodies Lab Routine Missed menses , unspecified gestational age Ordered: 11/14/2024[facility] HealthcareComment on above:Ordered: 11/14/2024Neisseria gonorrhoeae DNA [Presence] in Unspecified specimen by ANISA with probe detectionNeisseria gonorrhea DNA probe, direct Lab Routine STD exposure Ordered: 01/15/2025[facility] HealthcareComment on above:Ordered: 01/15/2025Reagin Ab [Presence] in Serum by RPRRPR Lab Routine Missed menses , unspecified gestational age Ordered: 11/14/2024[facility] HealthcareComment on above:Ordered: 11/14/2024Rubella antibody, IgGRubella antibody, IgG Lab Routine Missed menses , unspecified gestational age Ordered: 11/14/2024[facility] HealthcareComment on above:Ordered: 11/14/2024SURESWAB(R) ADVANCED VAGINITIS PLUS, TMASURESWAB(R) ADVANCED VAGINITIS PLUS, TMA Pathology and Cytology Routine Vaginal discharge Ordered: 01/15/2025 [facility] Work Phone: comment on above:Ordered: 01/15/2025US Pelvis transvaginalUS OB transvaginal Imaging Routine Missed menses 11/14/2024 2:38 PM [facility] End: 29-84-3503Vi uterus 14 wk transabdl 07/24 [facility] Work Phone: Comment on above:1 Occurrences starting 12/20/2024 until 12/20/2024 Immunizations Immunization DateImmunizationNotesCare NaedxptkPkubieyr29-97-7456BHKVE-09, Pfizer Purple top, DILUTE for use, 12+ yrs, 30mcg/0.3mL doseHannah Rodriguez TYPING CHECKER - [facility] Work Phone: [facility] Work Phone: [phone]-56, Pfizer Purple top, DILUTE for use, 12+ yrs, 30mcg/0.3mL doseHannah Rodriguez TYPING CHECKER [facility] Work Phone: [facility] Health CenterJhjauk46-12-9424vxsjj papilloma virus vaccine, quadrivalentSCCI Hospital [facility]ima, NA48-65-1075yalzt papilloma virus vaccine, quadrivalentSCCI Hospital [facility], OL02-72-2733jazpt papilloma virus vaccine, quadrivalentSCCI Hospital [place], [place] 31-59-5239elzxsjhgrnqcz polysaccharide (groups A, C, Y and W-135) diphtheria toxoid conjugate vaccine (MCV4P)[facility], XX28-84-3817 meningococcal ACWY vaccine, unspecified formulationSCCI Hospital [facility], BE11-31-0643Asipstogu A Ped/Adol (Vaqta)[facility], [place] 31-12-1505qmjbwjhxx A vaccine, pediatric/adolescent dosage, 2 dose schedule Ynes Rodriguez TYPING CHECKER [facility] Work Phone: [facility] Work Phone: [phone] toxoid, reduced diphtheria toxoid, and acellular pertussis vaccine, adsorbedSCCI Hospital [place], [place] 74-40-2068Lqtozemnt A Ped/Adol (Vaqta)[facility], [place] 31-34-0074bjlgeycxh A vaccine, pediatric/adolescent dosage, 2 dose schedule Ynes Rodriguez [facility] Work Phone: [facility] Work Phone: 1([phone]) [phone]oixviq virus vaccineSCCI Hospital [place], AE67-76-1347zrqbmefybaarw polysaccharide (groups A, C, Y and W-135) diphtheria toxoid conjugate vaccine (MCV4P)[facility], [place] 38-52-7733qdiymmqcch, tetanus toxoids and acellular pertussis vaccineSCCI Hospital [place], GB94-30-5635xqwjvco, mumps and rubella virus vaccine [facility], KV69-00-1167wuqvkqqdev vaccine, inactivated [facility], JL62-35-7280fjyxzcwqog, tetanus toxoids and acellular pertussis vaccineSCCI Hospital [facility], BK80-85-9660 haemophilus influenzae type b vaccine, PRP-T conjugateSCCI Hospital [facility], YL93-86-5692wwbqcpapkh vaccine, inactivatedSCC[facility] Hospital [facility], RB91-00-1707dopzszp, mumps and rubella virus vaccineCincinnati Shriners Hospital, AC63-09-4607kzzscuszp virus vaccineSCCI Hospital [place], [id number] B vaccine, pediatric or pediatric/adolescent dosageSCCI Hospital [place], [id number], tetanus toxoids and acellular pertussis vaccineSCCI Hospital [place], [id number] haemophilus influenzae type b vaccine, PRP-T conjugateS[facility] [place], [id number], tetanus toxoids and acellular pertussis vaccineS[facility] [place], [id number] influenzae type b vaccine, PRP-T conjugate[facility] [place], [id number] poliovirus vaccine, inactivatedS[facility]I Hospital [place], [id number] haemophilus influenzae type b vaccine, PRP-T conjugateS[facility] [place], [id number] vaccine, inactivatedSCCI Hospital [place], [id number], tetanus toxoids and acellular pertussis vaccineMercy Health [facility] Hospital03-18-1999hepatitis B vaccine, pediatric or pediatric/adolescent dosageSCCI Hospital [place], [id number] hepatitis B vaccine, pediatric or pediatric/adolescent dosageC[facility], [place] Payers DatePayer CategoryPayerPolic [id number] SPECIALTY BILLING [facility] [id number] 2022-Present [address] [facility] [address] [id number]Zsgccnc Health InsuranceTRINITY [facility]ENT[facility] Member Subscriber Plan / Payer (Effective 2022-Present) Name: GrantVinny witt Relation to Subscriber: Spouse Name: Abhishek Downey Date of : 1998 Address: [address] [place] [id number] Payer ID: Not on file Type: Not on file Address: [address] [id number] [id number] 2..1.200926.3.57[id number] 2..1.208982.3.57[id number] 2..1.577623.3.57[id number] 2..1.067708.3.57[id number] 2..1.145951.3.579.[id number] 2.0.1.217285.3.579.2.83263-01-6076Lmcdfmc7862220 2..1.370288.3.57[id number] 2.0.1.350754.3.579.2.68751-48-2847Cgqxthy0172937 2.16.840.1.315657.3.579.2.85796-27-1222Gwudhvn1533606 2.16.840.1.078815.3.57[id number] 2.16.840.1.546288.3.579.2.88720-16-2511Zujydmu4971207 2.16.840.1.862602.3.579.2.73096-54-6607Tygxkvz3254090 2.16.840.1.070086.3.579.2.02482-76-3486Sdrcvqw2405284 2.16.840.1.106464.3.579.2.66906-14-8015Trhvktl4793241 2.16.840.1.531597.3.579.2.78840-67-5399Ddggaxj2725259 2.840.1.776535.3.579.2.13036-10-3903Cjudgcy2480131 2.16.840.1.038776.3.579.2.08329-58-4896Nypnaxp0120294 2..840.1.627557.3.579.2.37357-92-1701Yppxyjp53938692 2.16.840.1.047077.3.579.2.78474-02-1250Naqktuz36405490 2.840.1.791636.3.579.2.60757-41-4960Aohgmnp95384075 2.16.840.1.866373.3.579.2.93339-68-0147Hjvzwpe82527273 2.16840.1.074933.3.579.[id number] 2.16.840.1.761110.3.579.2.79961-83-2561Hugmyky81682885 2.16.840.1.906789.3.579.2.230897-20-6269Uqxfofk60362873 2.16.840.1.659461.3.579.2.691507-63-7792Vaoqqaj26813360 2.16.840.1.343248.3.579.2.403761-49-2799Znmxycc27626844 2.16840.1.574667.3.579.2.671520-98-3262Jjzoctt65488823 2.16.840.1.703307.3.579.2.513446-88-6836Dylfotm42187678 2.840.1.192696.3.579.2.202859-01-3084Ndbtyhu43067543 2.840.1.718397.3.579.2.201043-19-4358Vgiiqcz44246192 2.840.1.471555.3.579.2.667104-76-9985Irtobbo70679256 2.840.1.498956.3.579.2.446094-09-0444Uwafmvk27469331 2.840.1.978354.3.579.2.438125-08-2829Zmfsvyh33617654 2.840.1.058285.3.579.2.974817-09-0318Psuhumc47030447 2.840.1.845011.3.579.2.023456-19-4584Femjjww6029655 2.840.1.261567.3.579.2.627138-43-8689Qwkxhso3950149 2.16840.1.527733.3.579.2.701024-31-7547Jiopeby5558373 2.840.1.238178.3.579.2.423400-62-9438Npkrufo1498443 2.16.840.1.372325.3.579.2.304115-01-0186Ewrq-fhh25-15-0090CbcyodoIZKBU3363188 1.2.840.112506.1.13.239.2.7.3.930335.11018-52-4615Kliyaad77677381795837-96-4396 [id number] 2.16.840.1.902722.3.579.2.593 Social History DateTypeDetailFacilityStart: 03-03-2020 End: 85-32-2695Geytqkt smoking status NHISNever smokerOhioHealth [facility]field [facility]: 03-03-2020 End: 72-95-1005Nhxfqup use and exposureNever usedOhioHealth Mansfield Hospital: 03-03-2020 End: 32-79-5738Vmufnpt intakeCurrent drinker of alcohol (finding)[facility]: 17-42-2202Xsrcdmk CommentsCambridge [facility]: 02-28-9930Usg Assigned At BirthNot on [facility]: 05-01[facility] End: 48-17-9511Cparwwl SDOH Myskasjxf0BovuiOhioHealth Mansfield Hospital: 05-01-2020 End: 13-91-3358Opdkaqz SDOH Food Uiwvz0IpztmOhioHealth Mansfield Hospital: 05-01-2020 History SDOH Transport [place]lmApp[place], [place]Exposure to SARS-CoV-2 (event)Not sureMercy Health [facility]: 05-01-2024 End: 05-63-7837Czhhfkvkv beverage intakeEx-drinker (finding)[facility]: 05-01-2024 End: 08-83-3441Munszir of Social functionBon [facility]: 05-01-2024 End: 17-35-3165Zylxgxj use panelBon [facility]: 29-68-0569Phc hard is it for you to pay for the very basics like food, housing, medical care, and heatingNot hard at allCopper Springs East Hospital NewsMaven(I/We) worried whether (my/our) food would run out before (I/we) got money to buy more.Never trueBon [facility]Ast[facility] SystemStart: 71-11-7639Zqy assigned at birthFemaleBon [facility]aleAst[facility] SystemStart: 40-75-1239Vgfxyb identityIdentifies as female gender (finding)[facility] NewCondosOnline [facility] SystemStart: 07-05-2023 End: 03-39-1572Yyvwhakwb beverage intakeLifetime non-drinker (finding)[facility] HealthcareStart: 73-67-6589FziuzypobPELT HealthcareHas the electric, gas, oil, or water company threatened to shut off services in your home in past 12MoNoBon [facility]aleAst[facility] SystemStart: 29-52-1602YkdAuainc (finding)[facility] [employer] Medical Equipment Procedure CodeEquipment CodeEquipment Original TextEquipment IdentifierDatesUse as [id number]: 01-15-2025 End: 03-33-1129Iznrql 1 each under the skin [id number]: 04-07-2025 End: 07-16-2025 Goals DatePatient GoalDesired Activity/StatePersonal health goal Clinical Notes 03-20-2023 to 06-02-2025 Note Date & NqlwDbgjLwsslyfp46-83-0604 History of Present illness Narrative* Mukul Foy, - 06/02/2025 1:10 PM EST Reason for [...] Frequent UTI 11/30/2020 23 weeks gestation of ([facility]) 02/26/2025 Elevated blood sugar level 02/26/2025 Resolved Ambulatory Problems Diagnosis Date Noted Missed period 01/13/2023 Past Medical History: Diagnosis Date GDM (gestational diabetes mellitus) ([facility]) Family History[1] Social History Tobacco Use Smoking [...] nursing note reviewed. Exam conducted with a sand technologist present. Vitals: Estimated body mass index is 38.38 kg/m as calculated from the following: Height as of 01/30/23: 5' 6 . Weight as of this encounter: 237 lb 12.8 oz. BP: 138/80 Patient's last menstrual period was 09/16/2024. Assessment/Plan Encounter Diagnosis: ICD-10-CM 1. 37 weeks gestation of ([facility]) Z3A.37 POCT urinalysis dipstick manually resulted 2. Third trimester ([facility]) Z34.93 POCT urinalysis dipstick manually resulted 3. Insulin controlled gestational diabetes mellitus (GDM) during , antepartum ([facility]) O24.414 4. Gestational diabetes mellitus (GDM), antepartum, gestational diabetes method of control unspecified ([facility]) O24.419 insulin glargine (Lantus SoloStar) 100 UNIT/ML [...] [3] No Known Allergies documented in this encounterMissouri Baptist Medical CenterViundovtdv55-75-7774 History of Present illness Narrative* JOSEPH Bowie [...] Frequent UTI 11/30/2020 23 weeks gestation of ([facility]) 02/26/2025 Elevated blood sugar level 02/26/2025 Resolved Ambulatory Problems Diagnosis Date Noted Missed period 01/13/2023 Past Medical History: Diagnosis Date GDM (gestational diabetes mellitus) ([facility]) HISTORY PAST MEDICAL HISTORY SOCIAL HISTORY Past Medical History: Diagnosis Date GDM (gestational diabetes mellitus) ([facility]) Social History Tobacco Use Smoking status: Never [...] nursing note reviewed. Exam conducted with a sand technologist present. Vitals: Estimated body mass index is 38.38 kg/m as calculated from the following: Height as of 01/30/23: 5' 6 . Weight as of this encounter: 237 lb 12.8 oz. BP: 120/80 Patient's last menstrual period was 09/16/2024. Assessment/Plan ICD-10-CM 1. Third trimester ([facility]) Z34.93 CULTURE, GROUP B STREP WITH SUSCEPTIBLITY CULTURE, GROUP B STREP WITH SUSCEPTIBLITY 2. 36 weeks gestation of ([facility]) Z3A.36 POCT urinalysis dipstick manually resulted Patient [...] of: JOSEPH Bowie documented in this encounterMissouri Baptist Medical CenterDjsyqsuwvg67-26-7323 History of Present illness Narrative* Criselda Aguirre [...] 23 weeks gestation of ([facility]) 02/26/2025 Elevated blood sugar level 02/26/2025 Resolved Ambulatory Problems Diagnosis Date Noted Missed period 01/13/2023 Past Medical History: Diagnosis Date GDM (gestational diabetes mellitus) ([facility]) HISTORY PAST MEDICAL HISTORY SOCIAL HISTORY Past Medical History: Diagnosis Date GDM (gestational diabetes mellitus) ([facility]) Social History Tobacco Use Smoking status: Never [...] nursing note reviewed. Exam conducted with a sand technologist present. Vitals: Estimated body mass index is 37.47 kg/m as calculated from the following: Height as of 01/30/23: 5' 6 . Weight as of this encounter: 232 lb 1.9 oz. BP: 110/70 Patient's last menstrual period was 09/16/2024. Assessment/Plan ICD-10-CM 1. Third trimester ([facility]) Z34.93 2. 34 weeks gestation of ([facility]) Z3A.34 POCT urinalysis dipstick manually resulted Return [...] Mukul Foy DO documented in this encounterMissouri Baptist Medical CenterDipunihsod79-10-4206 History of Present illness Narrative* Ceasar Li [...] Frequent UTI 11/30/2020 23 weeks gestation of ([facility]) 02/26/2025 Elevated blood sugar level 02/26/2025 Resolved Ambulatory Problems Diagnosis Date Noted Missed period 01/13/2023 Past Medical History: Diagnosis Date GDM (gestational diabetes mellitus) ([facility]) HISTORY PAST MEDICAL HISTORY SOCIAL HISTORY Past Medical History: Diagnosis Date GDM (gestational diabetes mellitus) ([facility]) Social History Tobacco Use Smoking status: Never [...] nursing note reviewed. Exam conducted with a sand technologist present. Vitals: Estimated body mass index is 36.7 kg/m as calculated from the following: Height as of 01/30/23: 5' 6 . Weight as of this encounter: 227 lb 6.4 oz. BP: 110/70 Patient's last menstrual period was 09/16/2024. ASSESSMENT & PLAN ICD-10-CM 1. Third trimester ([facility]) Z34.93 2. 32 weeks gestation of ([facility]) Z3A.32 POCT urinalysis dipstick manually resulted Return [...] Ceasar Li NP on behalf of: Ceasar iL NP documented in this encounterMissouri Baptist Medical CenterJttmdwnrpj51-12-8662 History of Present illness Narrative* JOSEPH Bowie [...] Frequent UTI 11/30/2020 23 weeks gestation of ([facility]) 02/26/2025 Elevated blood sugar level 02/26/2025 Resolved Ambulatory Problems Diagnosis Date Noted Missed period 01/13/2023 Past Medical History: Diagnosis Date GDM (gestational diabetes mellitus) ([facility]) HISTORY PAST MEDICAL HISTORY SOCIAL HISTORY Past Medical History: Diagnosis Date GDM (gestational diabetes mellitus) ([facility]) Social History Tobacco Use Smoking status: Never [...] ASSESSMENT & PLAN ICD-10-CM 1. Third trimester ([facility]) Z34.93 POCT urinalysis dipstick manually resulted 2. 30 weeks gestation of ([facility]) Z3A.30 Return OB: Patient presents today for [...] of: JOSEPH Bowie documented in this encounterMissouri Baptist Medical CenterMdxjgycsak41-61-7548 History of Present illness Narrative* JOSEPH Bowie [...] Frequent UTI 11/30/2020 23 weeks gestation of ([facility]) 02/26/2025 Elevated blood sugar level 02/26/2025 Resolved Ambulatory Problems Diagnosis Date Noted Missed period 01/13/2023 Past Medical History: Diagnosis Date GDM (gestational diabetes mellitus) ([facility]) HISTORY PAST MEDICAL HISTORY SOCIAL HISTORY Past Medical History: Diagnosis Date GDM (gestational diabetes mellitus) ([facility]) Social History Tobacco Use Smoking status: Never [...] PLAN ICD-10-CM 1. 28 weeks gestation of ([facility]) Z3A.28 POCT urinalysis dipstick manually resulted US OB follow up transabdominal approach US biophysical profile w non stress test 2. Third trimester ([facility]) Z34.93 POCT urinalysis dipstick manually resulted US OB follow up transabdominal approach US biophysical profile w non stress test 3. Dizziness R42 CBC and differential CBC and differential 4. Gestational diabetes mellitus (GDM), antepartum, gestational diabetes method of control unspecified ([facility]) O24.419 US OB follow up transabdominal approach [...] of: JOSEPH Bowie documented in this encounterMissouri Baptist Medical CenterSlofyfatve60-79-8731 History of Present illness Narrative* Mukul Foy [...] Frequent UTI 11/30/2020 23 weeks gestation of ([facility]) 02/26/2025 Elevated blood sugar level 02/26/2025 Resolved Ambulatory Problems Diagnosis Date Noted Missed period 01/13/2023 Past Medical History: Diagnosis Date GDM (gestational diabetes mellitus) ([facility]) No family history on file. Social History [...] nursing note reviewed. Exam conducted with a sand technologist present. Vitals: Estimated body mass index is 36.12 kg/m as calculated from the following: Height as of 01/30/23: 5' 6 . Weight as of this encounter: 223 lb 12.8 oz. BP: 100/70 Patient's last menstrual period was 09/16/2024. Assessment/Plan Encounter Diagnosis: ICD-10-CM 1. 25 weeks gestation of ([facility]) Z3A.25 POCT urinalysis dipstick manually resulted 2. Second trimester ([facility]) Z34.92 POCT urinalysis dipstick manually resulted 3. [...] Mukul Foy DO documented in this encounterMissouri Baptist Medical CenterUtuunuvoev10-27-3107 History of Present illness Narrative* Ceasar Li [...] Frequent UTI 11/30/2020 23 weeks gestation of ([facility]) 02/26/2025 Elevated blood sugar level 02/26/2025 Resolved Ambulatory Problems Diagnosis Date Noted Missed period 01/13/2023 Past Medical History: Diagnosis Date GDM (gestational diabetes mellitus) ([facility]) HISTORY PAST MEDICAL HISTORY SOCIAL HISTORY Past Medical History: Diagnosis Date GDM (gestational diabetes mellitus) ([facility]) Social History Tobacco Use Smoking status: Never [...] nursing note reviewed. Exam conducted with a sand technologist present. Vitals: Estimated body mass index is 35.96 kg/m as calculated from the following: Height as of 01/30/23: 5' 6 . Weight as of this encounter: 222 lb 12.8 oz. BP: 110/70 Patient's last menstrual period was 09/16/2024. ASSESSMENT & PLAN ICD-10-CM 1. 23 weeks gestation of ([facility]) Z3A.23 POCT urinalysis dipstick manually [...] Mukul Foy DO documented in this encounterMissouri Baptist Medical CenterWhvixqggwe56-59-5943 History of Present illness Narrative* JOSEPH Bowie [...] History: Diagnosis Date GDM (gestational diabetes mellitus) ([facility]) HISTORY PAST MEDICAL HISTORY SOCIAL HISTORY Past Medical History: Diagnosis Date GDM (gestational diabetes mellitus) ([facility]) Social History Tobacco Use Smoking status: Never [...] ASSESSMENT & PLAN ICD-10-CM 1. Second trimester ([facility]) Z34.92 metFORMIN XR (Glucophage-XR) 500 MG 24 hr tablet POCT urinalysis dipstick manually resulted 2. 20 weeks gestation of ([facility]) Z3A.20 metFORMIN XR (Glucophage-XR) 500 MG 24 [...] Mukul Foy DO documented in this encounterMissouri Baptist Medical CenterSkzgrzyzqr26-90-7705 History of Present illness Narrative* Criselda Aguirre [...] History: Diagnosis Date GDM (gestational diabetes mellitus) ([facility]) HISTORY PAST MEDICAL HISTORY SOCIAL HISTORY Past Medical History: Diagnosis Date GDM (gestational diabetes mellitus) ([facility]) Social History Tobacco Use Smoking status: Never [...] nursing note reviewed. Exam conducted with a sand technologist present. Vitals: Estimated body mass index is 34.19 kg/m as calculated from the following: Height as of 01/30/23: 5' 6 . Weight as of this encounter: 211 lb 12.8 oz. BP: 118/72 Patient's last menstrual period was 09/16/2024. ASSESSMENT & PLAN ICD-10-CM 1. Second trimester ([facility]) Z34.92 Alpha fetoprotein, maternal Alpha fetoprotein, maternal 2. 17 weeks gestation of ([facility]) Z3A.17 Alpha fetoprotein, maternal Alpha fetoprotein, maternal 3. Vaginal discharge N89.8 SURESWAB(R) ADVANCED VAGINITIS PLUS, TMA 4. STD exposure Z20.2 CHLAMYDIA TRACHOMATIS (GENITO/STI) Neisseria gonorrhea DNA probe, direct 5. Screening, , for anatomic survey ([facility]) Z36.89 US OB 14+ weeks anatomy scan 6. Gastroesophageal reflux in ([facility]) O99.619 omeprazole (PriLOSEC) [address] capsule K21.9 7. Gestational diabetes mellitus (GDM), antepartum, gestational diabetes method of control unspecified ([facility]) O24.419 glucose blood test strip Return OB/Annual [...] of: alesha bowie documented in this encounterMissouri Baptist Medical CenterJnpkmyejnd33-25-5347 History of Present illness Narrative* JOSEPH Bowie [...] by JOSEPH Bowie documented in this encounterMissouri Baptist Medical CenterFlhndeblqb06-19-1449 History of Present illness Narrative* Elizabeth Ware [...] Nurse Note: Patient uncertain of doing the [place] screening. Pt was advised both labs and [...] or undercooked meat, and stay away from [facility]. Patient has also been advised to [...] Elizabeth Ware MA documented in this encounterMissouri Baptist Medical CenterBtwzpiowhz84-63-1795 History of Present illness Narrative* Elizabeth Ware [...] nursing note reviewed. Exam conducted with a sand technologist present. Vitals: Estimated body mass index [...] Mukul Foy DO documented in this encounterMissouri Baptist Medical CenterDymwparrku50-32-1193 NoteHNO ID: [id number] Author: LANG CARREON APRN.[facility] Service: ? Author Type: Nurse Practitioner Type: Progress Notes Filed: 08/06/2023 10:44 Note Text: Telemedicine Visit - Distance Health Virtual Visit Note I have communicated my name and active licensure. The patient's identity and physical location were verified at the time of this visit. Either the patient or their legal field representatives director has been informed of the risks and benefits of -- and alternatives to -- treatment through a remote evaluation and consents to proceed with the evaluation remotely. Patient seen on virtual platforms, [employer]. Location of patient: [place] History of [...] - Sleep with head elevated due to crzl-fratn-srge increases cough - Continue Flonase - Flonase: [...] care - All questions answered Lang Carreon APRN.[facility]12-19-2023 NoteUT Electrophysiology Consult Note Reason [...] recent labs Rajendra Sheffield MD Cardiac Electrophysiology [facility]12-19-2023 NotePatient here for follow up event monitor. Echo was not performed that was ordered at last apt in Feb 2023 by Israel Champion CNP. Does not notice palpitations as often. Denies chest pain, SOB, and lightheadedness. Review of Systems Cardiovascular: Positive for palpitations (less often). All other systems reviewed and are negative.[facility] 03-30-2023 Note-developed anemia s/p -hgb 10.8 per recent labsUnMiddletown Hospital09-07-2023 Note- could be related to being , anemia -monitor and echo to rule out cardiac concernUnMiddletown Hospital 03-30-2023 Note- takes sertraline 50 mg dailyUnMiddletown Hospital 03-30-2023 Note- 30-day event monitor - we will hold off on starting medication until follow-upUnMiddletown Hospital08-28-2023 NoteNew patient here to establish care. Ref from Dr. Foy for bradycardia. She is 8 weeks . Had ECG last week. Symptoms started after baby was born. She feels palpitations. Did lose a lot of blood with , requiring transfusion. Denies chest pain and SOB. Review of Systems Cardiovascular: Positive for palpitations. Neurological: Positive for headaches. All other systems reviewed and are negative.[facility] 03-20-2023 NoteUT Electrophysiology Consult Note Reason [...] images are attached to (more content not included)...[facility]Evaluation [facility]* Diagnosis Frequent UTI Urinary tract infection, site not specified documented in this encounter [employer] Phone: evaluation note* Diagnosis Amenorrhea Absence of menstruation documented in this encounter [employer] Phone: evaluation note* Diagnosis Elevated liver enzymes Nonspecific elevation of levels of transaminase or lactic acid dehydrogenase (LDH) Mixed hyperlipidemia documented in this encounter WineSimpleEvaluation note* Diagnosis Well woman exam with routine gynecological exam Routine gynecological examination documented [facility] encounter [facility] HealthcareEvaluation [facility]* Diagnosis Missed menses 8 weeks gestation of , unspecified gestational age Encounter for supervision of normal first in first trimester History of miscarriage Personal history of other genital system and obstetric disorders documented in this encounter [facility] HealthcareEvaluation note* Diagnosis Second trimester state, incidental 12 weeks gestation of Subchorionic hematoma in first trimester, single or unspecified fetus Diabetes mellitus screening Screening for diabetes mellitus documented in this encounter [facility] HealthcareEvaluation note* Diagnosis Subchorionic hematoma, antepartum, first trimester, not applicable or unspecified fetus documented in this encounter [facility]Evaluation note* Diagnosis Second trimester ([facility]) state, incidental 17 weeks gestation of ([facility]) Vaginal discharge Leukorrhea, not specified as infective STD exposure Screening, , for anatomic survey ([facility]) Encounter for anatomic survey Gastroesophageal reflux in ([facility]) Gestational diabetes mellitus (GDM), antepartum, gestational diabetes method of control unspecified([facility]) documented in this encounter [facility] [...] DOPPLER US OB TRANSVAGINAL Mukul Foy MD [address] [place] [address] Phone: tel: Referral IDStatusReasonStart DateExpiration DateVisits RequestedVisits [id number] [facility] Assessments Diagnosis Screening for cervical cancer Screening for malignant neoplasm of the cervix Encounter for annual routine gynecological examination Diagnosis Encounter for screening for HIV Other fatigue Wellness examination Advance Directives TypeDate RecordedPatient RepresentativeExplanationAdvance Directives and Living WillPower of AttorneyTypeDate RecordedPatient RepresentativeExplanationACP- Advance DirectiveACP-Power of AttorneyTypeDate RecordedPatient Meteorology Faculty Member ExplanationACP-Advance DirectiveACP-Power of [employer] Summary Purpose Family History No Family History Records FoundNo Family History Records FoundNo Family History Records FoundNo Family History Records FoundNo Family History Records FoundNo Family History Records FoundNo Family History Records Found Reason for Referral StatusReasonSpecialtyDiagnoses / ProceduresReferred By ContactReferred To ContactClosedRadiology Diagnoses Frequent UTI Procedures US RENAL COMPLETE Lorena Ricks, TYPING CHECKER - CALLIOPE PLAYER [address] [place] [address] Additional Source Comments INFORMATION SOURCE (unrecogn ized section and content) DATE CREATED AUTHOR 10/14/2020 [facility] DATE CREATED AUTHOR AUTHOR'S ORGANIZ ATION 09/26/2021 [facility] DATE CREATED AUTHOR AUTHOR'S ORGANIZ ATION 12/30/2022 [facility] DATE CREATED AUTHOR AUTHOR'S ORGANIZ ATION 08/03/2023 [facility] DATE CREATED AUTHOR AUTHOR'S ORGANIZ ATION 08/07/2023 [facility] DATE CREATED AUTHOR AUTHOR'S ORGANIZ ATION 01/09/2025 [facility] DATE CREATED AUTHOR AUTHOR'S ORGANIZ ATION 06/03/2025 [facility] EPIC Reason for Visit (unrecogniz ed section and content) StatusReasonSpecialtyDiagnoses / ProceduresReferred By ContactReferred To ContactClosedRadiology Diagnoses Frequent UTI Procedures US RENAL COMPLETE Lorena Ricks, TYPING CHECKER - CALLIOPE PLAYER [address] [place] [address] ReasonCommentsGynecologic ExamReasonCommentsAmenorrheaReasonCommentsRoutine VisitReasonCommentsRoutine VisitSTI Screening Care Teams (unrecognized sec tion and content) Team MemberRelationshipSpecialtyStart DateEnd Date Ynes Rodriguez, TYPING CHECKER - CALLIOPE PLAYER [address] [place] [address] PCP - GeneralFamily Nurse [id number]/12/20Team MemberRelationshipSpecialty Start DateEnd Date Ynes Rodriguez, TYPING CHECKER - CALLIOPE PLAYER [address] [place] [address] PCP - GeneralFamily Nurse [id number]/12/20Team MemberRelationshipSpecialty Start DateEnd Date Ynes Rodriguez, TYPING CHECKER - CALLIOPE PLAYER [address] [place] [address] PCP - GeneralFamily Nurse Practitioner08/02/22Team MemberRelationshipSpecialty Start DateEnd Date Ynes Rodriguez, TYPING CHECKER - CALLIOPE PLAYER [address] [place] [address] PCP - GeneralFamily Nurse Practitioner08/02/22Team MemberRelationshipSpecialty Start DateEnd Date Ynes Rodriguez, TYPING CHECKER - CALLIOPE PLAYER [address] [place] [address] PCP - GeneralFamily Nurse Practitioner08/02/22 FOR RECORDS [...] BE BASED ON THE PRIMARY CLINICAL RECORDS. [facility] [employer] [facility]. provides no warranty or guarantee of the accuracy or completeness of information in this document.
[2025-06-07 09:27] VITALS: BP 127/71; PULSE 106
== END 2025-06-07 10:25 | disposition home or self-care (01) ==
LOC: FBCO 09:21 → FBC 09:22
PROVIDERS: PCP Nurse Practitioner Women's Health; Visit Provider Obstetrics & Gynecology
DX: O24.419 Gestational diabetes mellitus in pregnancy, unspecified control (principal); Z3A.37 37 weeks gestation of pregnancy
CPT/HCPCS: 59025

== ENCOUNTER 2025-06-09 05:37 | Inpatient (IN) | payer OTHER, SELFPAY ==
--- OUTSIDE RECORDS SUMMARY | 2025-05-28 14:00 | XMS_ITS | Encounter Summary ---
Author Organization [facility] Address [address] [place] [address] Care Team Providers Care White Sugar Boiler Name Role Phone Unavailable Primary Care Provider Unavailabl e Encounter Details DateTypeDepartmentCare Team (Latest Contact Info)Kjhbqqckirs64/05/2025 2:00 PM ESTAncillary Procedure [facility] [address] [address] [place] [address] Insulin controlled gestational diabetes mellitus (GDM) during , antepartum ([facility]) Social History Tobacco UseTypesPacks/DayYears UsedDateSmoking Tobacco: NeverSmokeless Tobacco: NeverAlcohol UseStandard Drinks/WeekCommentsNever0 (1 standard drink = 0.6 oz pure alcohol)Estimated Date of PgvyqzjlPlkscydvVbk75/01/2025Based on last menstrual period of 09/16/2024Sex and Gender InformationValueDate Recorded Sex Assigned at BirthNot on fileLegal FjxFdaeva97/15/2023 11:47 PM EDTGender IdentityNot on fileSexual OrientationNot on filedocumented as of this encounter Plan of Treatment DateTypeDepartmentCare Team (Latest Contact Info)Bksgkxhgaoq57/05/2026 4:00 PM ESTOffice Visit [facility] S[facility]O [address] [place] [address] Mukul Foy DO [address] [place], [place] [phone] documented as of this encounter Goals GoalPatient Goal TypeAssociated ProblemsRecent ProgressPatient-Stated?Author Reminders Care PlanOB RemindersNoOpen Scheduling, Backgrounddocumented as of this encounter Procedures Procedure NamePriorityDate/TimeAssociated DiagnosisCommentsUS OB FOLLOW UP TRANSABDOMINAL AUSCYJJUYgcalyj06/05/2025 2:26 PM EST Insulin controlled gestational diabetes mellitus (GDM) during , antepartum ([facility]) documented in this encounter Results [...] Ron Reyes MD Authorizing ProviderResult TypeResult StatusCorey [facility] US PROCEDURES Final Result documented in this encounter Visit Diagnoses Diagnosis Insulin controlled gestational diabetes mellitus (GDM) during , antepartum ([facility]) documented in this encounter Additional Health Concerns Active ProblemsNoted DateDiagnosed DateOB Dnrzsjtbe68/09/2025 documented as of this encounter
--- OUTSIDE RECORDS SUMMARY | 2025-05-28 14:30 | XMS_ITS | Encounter Summary ---
Author Organization [facility] Address [address] [place] [address] Care Team Providers Care Concert Singer Name Role Phone Unavailable Primary Care Provider Unavailabl e Reason for Visit * ReasonCommentsRoutine Visit Encounter Details DateTypeDepartmentCare Team (Latest Contact Info)Eipssihuelt53/05/2025 2:30 PM ESTRoutine [facility] [place] [facility] [address] [facility] [place] [address] Regina Barton PA [address] [place] [address] Third trimester ([facility]); 36 weeks gestation of ([facility]) Social History Tobacco UseTypesPacks/DayYears UsedDateSmoking Tobacco: NeverSmokeless Tobacco: NeverAlcohol UseStandard Drinks/WeekCommentsNever0 (1 standard drink = 0.6 oz pure alcohol)Estimated Date of AnvbcygeBsvzfkhvMcv59/01/2025ased on last menstrual period of 09/16/2024Sex and Gender InformationValueDate Recorded Sex Assigned at BirthNot on fileLegal ThkRnasev87/15/2023 11:47 PM EDTGender IdentityNot on fileSexual OrientationNot on filedocumented as of this encounter Last Filed Vital Signs Vital SignReadingTime TakenCommentsBlood Xnfolaea612/80107/28/2024 2:52 PM EST Pulse--Temperature--Respiratory Rate--Oxygen Saturation--Inhaled Oxygen Concentration--Hbwixn878 kg (237 lb 12.8 oz)05/28/2025 2:52 PM [...] Frequent UTI 11/30/2020 23 weeks gestation of ([facility]) 02/26/2025 Elevated blood sugar level 02/26/2025 Resolved Ambulatory Problems Diagnosis Date Noted Missed period 01/13/2023 Past Medical History: Diagnosis Date GDM (gestational diabetes mellitus) ([facility]) HISTORY PAST MEDICAL HISTORY SOCIAL HISTORY Past Medical History: Diagnosis Date GDM (gestational diabetes mellitus) ([facility]) Social History Tobacco Use Smoking status: [...] nursing note reviewed. Exam conducted with a management retail intern present. Vitals: Estimated body mass index is 38.38 kg/m?? as calculated from the following: Height as of 01/30/23: 5' 6 . Weight as of this encounter: 237 lb 12.8 oz. BP: 120/80 Patient's last menstrual period was 09/16/2024. Assessment/Plan ICD-10-CM 1. Third trimester ([facility]) Z34.93 CULTURE, GROUP B STREP WITH SUSCEPTIBLITY CULTURE, GROUP B STREP WITH SUSCEPTIBLITY 2. 36 weeks gestation of ([facility]) Z3A.36 POCT urinalysis dipstick manually resulted Patient [...] Plan of Treatment DateTypeDepartmentCare Team (Latest Contact Info)Hrftoedntsr27/05/2026 4:00 PM ESTOffice Visit [facility] [place] [facility] [address] [facility] [address] [facility] [place] [phone] Mukul Foy DO [address] [place] [address] NameTypePriorityAssociated DiagnosesOrder ScheduleCULTURE, GROUP B STREP WITH SUSCEPTIBLITYLabRoutine Third trimester ([facility]) Expected: 05/28/2025, Expires: 05/28/2026documented as of this encounter Goals GoalPatient Goal TypeAssociated ProblemsRecent ProgressPatient-Stated?Author Reminders Care PlanOB RemindersNoOpen Scheduling, Backgrounddocumented as of this encounter Procedures Procedure NamePriorityDate/TimeAssociated DiagnosisCommentsPOCT URINALYSIS AEIKQHPGDrwcrga40/05/2025 2:52 PM EST 36 weeks gestation of ([facility]) documented in this encounter Results * POCT [...] EST Narrative Authorizing ProviderResult TypeResult StatusRegina Barton [facility] TEST ENTER/EDIT ORDERABLESFinal Result documented in this encounter Visit Diagnoses Diagnosis Third trimester ([facility]) state, incidental 36 weeks gestation of ([facility]) documented in this encounter Additional Health Concerns Active ProblemsNoted DateDiagnosed DateOB Lkgcmcnpw72/09/2025 documented as of this encounter
--- OUTSIDE RECORDS SUMMARY | 2025-06-02 13:10 | XMS_ITS | Encounter Summary ---
Author Organization [facility] Address [address] [place] [address] Care Team Providers Care Cardroom Manager Name Role Phone Unavailable Primary Care Provider Unavailabl e Reason for Visit * ReasonCommentsRoutine Visit Encounter Details DateTypeDepartmentCare Team (Latest Contact Info)Evfmtqnyjwl80/10/2025 1:10 PM ESTRoutine [facility] [address] [facility] [place] [address] Mukul Foy DO [address] [facility] [address] [place] [address] 37 weeks gestation of ([facility]); Third trimester ([facility]); Insulin controlled gestational diabetes mellitus (GDM) during , antepartum ([facility]); Gestational diabetes mellitus (GDM), antepartum, gestational diabetes method of control unspecified([facility]) Social History Tobacco UseTypesPacks/DayYears UsedDateSmoking Tobacco: NeverSmokeless Tobacco: NeverAlcohol UseStandard Drinks/WeekCommentsNever0 (1 standard drink = 0.6 oz pure alcohol)Estimated Date of RgqzcijqUvaebdloYlr69/01/2025Based on last menstrual period of 09/16/2024Sex and Gender InformationValueDate Recorded Sex Assigned at BirthNot on fileLegal LzkXcbmdi24/15/2023 11:47 PM EDTGender IdentityNot on fileSexual OrientationNot on filedocumented as of this encounter Last Filed Vital Signs Vital SignReadingTime TakenCommentsBlood Hexxztth341/80108/02/2024 1:22 PM EST Pulse--Temperature--Respiratory Rate--Oxygen Saturation--Inhaled Oxygen Concentration--Zqzkto422 kg (237 lb 12.8 oz)06/02/2025 1:22 PM [...] Frequent UTI 11/30/2020 23 weeks gestation of ([facility]) 02/26/2025 Elevated blood sugar level 02/26/2025 Resolved Ambulatory Problems Diagnosis Date Noted Missed period 01/13/2023 Past Medical History: Diagnosis Date GDM (gestational diabetes mellitus) ([facility]) Family History[1] Social History Tobacco Use Smoking [...] nursing note reviewed. Exam conducted with a automobiles salesperson present. Vitals: Estimated body mass index is 38.38 kg/m?? as calculated from the following: Height as of 01/30/23: 5' 6 . Weight as of this encounter: 237 lb 12.8 oz. BP: 138/80 Patient's last menstrual period was 09/16/2024. Assessment/Plan Encounter Diagnosis: ICD-10-CM 1. 37 weeks gestation of ([facility]) Z3A.37 POCT urinalysis dipstick manually resulted 2. Third trimester ([facility]) Z34.93 POCT urinalysis dipstick manually resulted 3. Insulin controlled gestational diabetes mellitus (GDM) during , antepartum ([facility]) O24.414 4. Gestational diabetes mellitus (GDM), antepartum, gestational diabetes method of control unspecified ([facility]) O24.419 insulin glargine (Lantus SoloStar) 100 UNIT/ML [...] Plan of Treatment DateTypeDepartmentCare Team (Latest Contact Info)Oxtbfgyrefb75/05/2026 4:00 PM ESTOffice Visit [facility] [address] [facility] [place] [phone] Mukul Foy DO [address] [facility] [place] [address] documented as of this encounter Goals GoalPatient Goal TypeAssociated ProblemsRecent ProgressPatient-Stated?Author Reminders Care PlanOB RemindersNoOpen Scheduling, Backgrounddocumented as of this encounter Procedures Procedure NamePriorityDate/TimeAssociated DiagnosisCommentsPOCT URINALYSIS INEDNNTPFhbsypa55/10/2025 1:25 PM EST 37 weeks gestation of ([facility]) Third trimester ([facility]) documented in this encounter Results * POCT [...] Visit Diagnoses Diagnosis 37 weeks gestation of ([facility]) Third trimester ([facility]) state, incidental Insulin controlled gestational diabetes mellitus (GDM) during , antepartum ([facility]) Gestational diabetes mellitus (GDM), antepartum, gestational diabetes method of control unspecified([facility]) documented in this encounter Additional Health Concerns Active ProblemsNoted DateDiagnosed DateOB Xbexayjsn32/09/2025 documented as of this encounter
[2025-06-09] VITALS (24 sets, daily range): BP systolic 117–147; BP diastolic 58–86; PULSE 56–95; TEMP 36.6–36.8; O2SAT 96–97
--- OUTSIDE RECORDS SUMMARY | 2025-06-09 05:41 | XMS_ITS | CCD ---
Author Organization [facility] CliniSyga Care Team Providers Care Technical Marketing Consultant Name Role Phone Jannette Peña I Primary Care Provider [phone] Ynes Rodriguez Primary Care Provider Fede LUX Ynes ANDRES Primary Care Provide r LAW, MUKUL R Admitting Unavailable LAW, MUKUL R Primary Care Unavailable LAW, MUKUL R Admitting Unavailable LAW, MUKUL R Primary Care Unavailable LAW, MUKUL R Admitting Unavailable LAW, MUKUL R Primary Care Unavailable BERTO LIVE Admitting Unavailabl e LAW, MUKUL R Primary Care Unavailable Fede CLINICAL SAFETY SPECIALIST - STRATEGIC ANALYST, Ynes Conner Primary Care Provide r Unavailable Primary Care Provider Unavailabl e LAW ., DR DE LA TORRE Attending Unavailable MISC, DR YAÑEZ Primary Care Unavailable [place], DR YELENA Henao Consulting Unavailable LAW ., [...] Unavailable MISC, DR YAÑEZ Primary Care Unavailable [place], DR YELENA Henao Consulting Unavailable LAW ., [...] mg oral tablet (1 source)HMG-CoA Reductase InhibitorStart: 70-53-3257phxq 1 tablet by mouth once dailyatorvastatin (LIPITOR) 10 MG tablet Take 1 tablet by mouth daily 30 tablet 5 02/20/2024 Activecephalexin 500 mg oral capsule (4 sources)Cephalosporin AntibacterialStart: 04-03-2025 End: 07-50-9325apol 1 capsule by mouth in the morning, [...] mg oral tablet (8 sources)Histamine-1 Receptor AntagonistStart: 53-91-2266egld 1 tablet by mouth once dailycetirizine (ZYRTEC) 10 MG tablet Take 1 tablet by mouth daily 90 tablet 3 03/12/2021 ActiveStart: 80-51-4271pwfy 1 tablet by mouth once daily cetirizine (ZYRTEC) 10 MG tablet Take 1 tablet by mouth daily 90 tablet 3 06/29/2020 Activedrospirenone 4 mg oral tablet (1 source)ProgestinStart: 79-59-5364njdq 1 tablet by mouth once daily Drospirenone (SLYND) 4 MG TABS Indications: Irregular menses Take 1 tablet by mouth daily 84 tablet4 05/12/2021 Activedrospirenone 3 mg / ethinyl estradiol 0.03 mg oral tablet (9 sources)Progestin, EstrogenStart: 04-21-4164WCWOO 3-0.03 MG TABS Indications: Irregular menses TAKE 1 TABLET DAILY 84 tablet 0 05/03/2021 ActiveStart: 10-86-0106dfpe 1 tablet by mouth once dailydrospirenone-ethinyl estradiol (CHANDANA 28) 3-0.03 MG TABS Indications: Irregular menses Take 1 tablet by mouth daily 3 packet 4 03/03/2020 ActiveEthinyl Estradiol / Ferrous fumarate / Norethindrone (6 sources)EstrogenStart: 97-70-8042WXSQA FE 24 1-20 MG-MCG(24) TABS Indications: DUB (dysfunctional uterine bleeding) TAKE 1 TABLET DAILY 84 tablet 1 08/27/2018 ActiveStart: 41-46-4929qnfz 1 tablet by mouth once dailyNorethin David-Eth Estrad-FE 1-20 MG-MCG(24) TABS Indications: Irregular menses Take 1 tablet by mouth daily 28 tablet 12 05/04/2018 ActiveStart: 84-17-4022kpjn 1 tablet by mouth once dailyNorethin David-Eth Estrad-FE ( 24) 1-20 MG- MCG(24) TABS Indications: Irregular menses Take 1 tablet by mouth daily 84 tablet 3 07/21/2017 Activefexofenadine / Pseudoephedrine (2 sources)alpha-Adrenergic Agonist, Histamine-1 Receptor Antagonist Fexofenadine-Pseudoephedrine (JOSÉ MIGUEL-D PO) Take by mouth 0 Activefluconazole 150 mg oral tablet (1 source)Azole AntifungalStart: 78-89-8840vsef 1 tablet by mouth once daily as [...] pen injector (20 sources)Insulin AnalogStart: 06-02-2025 End: 09-05-4831fbjufhm glargine (Lantus SoloStar) 100 UNIT/ML pen Indications: Hyperglycemia Inject 17 Units underthe skin at bedtime FILL ACCORDING TO INSURANCE COVERAGE 3 mL 06/02/2025 07/02/2025 ActiveStart: 05-14-2025 End: 76-01-1270xkyaqnj glargine (Lantus SoloStar) 100 UNIT/ML pen Indications: Hyperglycemia Inject 15 Units underthe skin at bedtime FILL ACCORDING TO INSURANCE COVERAGE 3 mL 05/14/2025 06/02/2025 Discontinued (Dose adjustment) Start: 04-07-2025 End: 84-77-4035sodtwj 10 [IU] by subcutaneous injection at bedtimeinsulin glargine (Lantus SoloStar) 100 UNIT/ML pen Indications: Hyperglycemia Inject 10 Units underthe skin at bedtime FILL ACCORDING TO INSURANCE COVERAGE 3 mL 04/07/2025 05/14/2025 Discontinued (Reorder)loratadine 10 mg oral capsule (2 sources)take 1 capsule by mouth once dailyloratadine (CLARITIN) 10 MG capsule Take 10 mg by mouth daily 0 Tcvzeh52 hr metFORMIN hydrochloride 500 mg extended release oral tablet (20 sources)BiguanideStart: 02-11-2025 End: 25-42-8148zldn 2 tablets by mouth every twenty-four hours at mealtime metFORMIN XR (Glucophage-XR) 500 MG 24 hr tablet Indications: Second trimester ([facility]) , 20 weeks gestation of ([facility]) Take 2 tablets (1,000 mg) by mouth in the evening. Take with meals 60 tablet 5 02/11/2025 08/10/2025 ActiveStart: 11-05-2024 End: 03-75-7835pvph 1 tablet by mouth every twenty-four hours in the morning metFORMIN XR (Glucophage-XR) 500 MG 24 hr tablet Take 1,000 mg by mouth in the morning and 1,000 mgin the evening. 11/05/2024 02/11/2025 Discontinued (Reorder) Start: 11-05-2024 End: 32-23-8216tlpQNZEOT (GLUCOPHAGE-XR) 500 MG extended release tablet Indications: BMI 37.0-37.9, adult , Class 2 obesity with body mass index (BMI) of 37.0 to 37.9 in adult, unspecified obesity type, unspecifiedwhether serious comorbidity present TAKE 2 TABLETS BY MOUTH IN THE MORNING AND AT BEDTIME 120 tablet 5 11/05/2024 05/04/2025 ActiveStart: 04-26-2024 End: 39-00-8206zfpPWQYSX (GLUCOPHAGE-XR) 500 MG extended release tablet Indications: BMI 37.0-37.9, adult , Class 2 obesity with body mass index (BMI) of 37.0 to 37.9 in adult, unspecified obesity type, unspecifiedwhether serious comorbidity present Take 2 tablets by mouth in the morning and at bedtime 360 tablet 1 04/26/2024 10/23/2024 Activemetoclopramide 10 mg oral tablet (20 sources)Dopamine-2 Receptor AntagonistStart: 03-12-2025 End: 18-84-0324selmsskvhgelif (Reglan) 10 MG tablet Indications: Gastroesophageal reflux [...] 50 mg oral capsule (4 sources)Nitrofuran AntibacterialStart: 42-15-6931vvih 1 capsule by mouth once dailynitrofurantoin (MACRODANTIN) 50 MG capsule Indications: Recurrent UTI Take 1 capsule by mouth nightly 30 capsule 0 03/03/2020 Activepantoprazole 40 mg delayed release oral tablet (20 sources)Proton Pump InhibitorStart: 02-26-2025 End: 42-12-9362hshn 1 tablet by mouth before mealtimepantoprazole (Protonix) 40 MG EC tablet Indications: 23 weeks gestation of ([facility] , Elevated blood sugar level , Gastroesophageal reflux disease without esophagitis Take 1 tablet (40 mg)by mouth in the morning. Take before meals. Do not crush, chew, or split. 30 tablet 11 02/26/2025 02/26/2026 Activephentermine hydrochloride 37.5 mg oral tablet (1 source)Sympathomimetic Amine AnorecticStart: 05-01-2024 End: 83-10-8539aqrq 37-37.9 tablets by mouth once dailyphentermine (ADIPEX-P) [...] mg oral capsule (12 sources)Start: 04-02-2025 End: 15-30-1922zksb 1 capsule by mouth once dailyiron polysaccharides (ProFe) 391.3 (180 Fe) MG capsule Indications: Dizziness Take 1 capsule (391.3mg) by mouth Daily 30 capsule 6 04/02/2025 05/02/2025 ActiveProbiotic Product (PROBIOTIC ADVANCED PO) (6 sources)Probiotic Product (PROBIOTIC ADVANCED PO) Take by mouth Active Probiotic Product (PROBIOTIC ADVANCED PO) Take by mouth 0 ActiveProgesterone (1 source)ProgesteroneStart: 70-26-6319Pcgehsnfraro [address] 200 mg vaginally nightly 10/16/2024 ActiveProgesterone 200 MG suppository (2 sources)Start: 11-14-2024 End: 69-03-8272Qwzsatphpayz 200 MG suppository Indications: History of miscarriage Insert 200 mg into the vagina at bedtime Insert suppository vaginally every night at bedtime until 12 weeks gestation 30 suppository 2 11/14/2024 12/14/2024 ActiveStart: 10-16-2024 End: 86-50-3107Ubwwxtjvuuqy 200 MG suppository Indications: History of miscarriage Insert 200 mg into the vagina at bedtime Insert suppository vaginally every night at bedtime until 12 weeks gestation 30 suppository 3 10/16/2024 11/14/2024 Discontinued (Reorder)sertraline 25 mg oral tablet (20 sources)Serotonin Reuptake InhibitorStart: 76-86-6465ubhd 1 tablet by mouth once dailysertraline (ZOLOFT) 25 MG tablet Take 1 tablet by mouth daily 30 tablet 5 11/12/2024 ActiveStart: 67-24-7724sykf 1 tablet by mouth once daily in the morningsertraline (Zoloft) 50 MG tablet Indications: Anxiety, generalized TAKE 1 TABLET BY MOUTH EVERY DAYIN THE MORNING 30 tablet 3 10/25/2024 Active Start: 50-97-6261yezd 1 tablet by mouth once daily in the morningsertraline (Zoloft) 50 MG tablet Indications: Anxiety, generalized (CMS/HCC) TAKE 1 TABLET BY MOUTHEVERY DAY IN THE MORNING 30 tablet 3 06/27/2024 ActiveStart: 10-17-2023 take 1 tablet by mouth once dailysertraline (ZOLOFT) 50 MG tablet Indications: Anxiety Take 1 tablet by mouth daily 30 tablet 10/17/2023 ActiveStart: 04-44-3561ncth 1 tablet by mouth once dailysertraline (ZOLOFT) 25 MG tablet Indications: Anxiety Take 1 tablet by mouth daily 90 tablet 3 03/29/2022 Active Start: 38-07-7108wear 1 tablet by mouth once dailysertraline (ZOLOFT) 25 MG tablet Take 1 tablet by mouth daily 90 tablet 3 03/12/2021 ActiveStart: 61-08-1801drdx 1 tablet by mouth once dailysertraline (ZOLOFT) 50 MG tablet Take 1 tablet by mouth daily 30 tablet 2 08/17/2020 Activesulfamethoxazole 800 mg / trimethoprim 160 mg oral tablet (2 sources)Dihydrofolate Reductase Inhibitor Antibacterial, Sulfonamide AntimicrobialStart: 15-32-9629iiwb 1 tablet by mouth every twelve hours sulfamethoxazole-trimethoprim (BACTRIM DS;SEPTRA DS) 800-160 MG per tablet TAKE 1 TABLET BY MOUTH EVERY 12 HOURS FOR 7 DAYS 0 02/24/2020 ActiveTirzepatide (MOUNJARO) 2.5 MG/0.5ML SOPN SC injection (1 source)Start: 75-81-7084Lspwwkndzub (MOUNJARO) 2.5 MG/0.5ML SOPN SC injection Indications: Mixed hyperlipidemia , BMI 37.0-37.9, adult , Class 2 obesity with body mass index (BMI) of 37.0 to 37.9 in adult, unspecified obesity type, unspecified whether serious comorbidity present Inject 0.5 mLs into the skin once a week 4 mL 1 05/01/2024 ActivetraZODone hydrochloride 50 mg oral tablet (1 source)Serotonin Reuptake InhibitorStart: 05-66-0119dtqn 0.5 tablet by mouth once dailytraZODone (DESYREL) 50 MG tablet Take 0.5 tablets by mouth nightly 30 tablet 2 05/01/2020 Active Completed/Discontinued Medications MedicationDrug Class(es)DatesSig (Normalized)Sig (Original)norethindrone 0.35 mg oral tablet (2 sources)Start: 03-10-2023 End: 24-93-3325ktyp 1 tablet by mouth in the morningnorethindrone (Micronor) 0.35 MG tablet Indications: General counseling and advice on contraceptive management Take 1 tablet (0.35 mg) by mouth in the morning. 28 tablet 11 03/10/2023 07/15/2024 Discontinued (Therapy completed)omeprazole 20 mg delayed release oral capsule (8 sources)Proton Pump InhibitorStart: 01-15-2025 End: 27-03-0503tqfj 1 capsule by mouth before mealtimeomeprazole (PriLOSEC) [address] capsule Indications: Gastroesophageal Reflux Disease , Heartburn Take 1 capsule (20 mg) by mouth in the morning. Take before meals. Do not crush or chew. 30 capsule 3 01/15/2025 02/26/2025 Discontinued (Formulary change) Problems Active Problems Problem ClassificationProblemDateDocumented DateEpisodic/Chronic Administrative/social admission (4 sources)Dietary counseling and surveillance; Translations: [DIETARY COUNSELING AND SURVEILLANCE]Onset: 09-21-5294QhdxsdogNdqxhtv disorders (20 sources)Anxiety; Translations: [Anxiety disorder, unspecified]Onset: 730496-20-6750FjuqiatCceddpomuy associated with dizziness or vertigo (2 sources)Dizziness; Translations: [Dizziness and giddiness]33-20-7966Qipthdem Deficiency and other anemia (2 sources)Anemia; Translations: [Anemia, unspecified]61-57-4645BklbxbdbLlhubxbx or abnormal glucose tolerance complicating ; childbirth; or the puerperium (16 sources)Gestational diabetes mellitus in , unspecified control; Translations: [Gestational diabetes mellitus complicating ]Onset: 565301-82-5983NavwwlyvOfgszvhuf of lipid metabolism (7 sources)Mixed hyperlipidemia; Translations: [Mixed hyperlipidemia]Onset: 005190-39-8948KyyaumqRdidxlzuhl disorders (6 sources)Gastroesophageal reflux disease; Translations: [Gastro-esophageal reflux disease without esophagitis]Onset: hronic Genitourinary symptoms and ill-defined conditions (2 sources)Urinary symptoms ; Translations: [Unspecified symptoms and signs involving the genitourinary system]92-17-0547VwxfxgrzQflsxuenop during ; abruptio placenta; placenta previa (1 source)Other antepartum hemorrhage, first trimester; Translations: [Other antepartum hemorrhage, first trimester]Onset: 82-73-7858XorceqfuLomrhgxhytcdj and screening for infectious disease (4 sources)Encounter for screening for infections with a predominantly sexual mode of transmission; Translations: [Encounter for screening for human papillomavirus (HPV)]Onset: 824748-85-8449PaeueoxoQfpfyhtwqljxu mental health disorders (20 sources)Insomnia disorder related to another mental disorder; Translations: [Insomnia due to other mental disorder]Onset: 05-02-2020 Resolved: 856852-96-8459ApvwhlhAssyx complications of (4 sources)Maternal care for excessive growth, third trimester, not applicable or unspecified; Translations: [MAT CARE EXCSS FTL GRTH 3RD TRI UNS] Onset: 54-51-1486TaspvmxnYvgxq complications of (3 sources)Maternal care for excessive growth, unspecified trimester, not applicable or unspecified; Translations: [MAT CARE EXCSS FTL GRTH UNS TRI UNS] Onset: 18-19-0725MiwosgijWgxyk complications of (2 sources)Gastroesophageal reflux disease in ; Translations: [Diseases of the digestive system complicating , unspecified trimester] 62-62-7931XgeuqrubEnkfu female genital disorders (20 sources)Pain in female genitalia on intercourse; Translations: [Unspecified dyspareunia]Onset: 11-30-2020 Resolved: 541135-84-8214VosfzvgRwxof female genital disorders (2 sources)Vaginal discharge; Translations: [Other specified noninflammatory disorders of vagina]46-29-9066GcrfcsajEzywr injuries and conditions due to external causes (4 sources)Encounter for examination and observation following other accident; Translations: [ENC EXAM AND OBSERVATION FOLLOW OTH ACC]Onset: 87-01-5719Ryftlxwm Other liver diseases (3 sources)Steatosis of liver; Translations: [Fatty (change of) liver, not elsewhere classified]Onset: 193533-31-5786UkmbgarNrxsb nutritional; endocrine; and metabolic disorders (1 source)Body mass index 30+ - obesity; Translations: [Body mass index (BMI) 37.0-37.9, adult]Onset: 802276-85-4181NfhqanrSkujf nutritional; endocrine; and metabolic disorders (3 sources)Obesity; Translations: [Class 2 obesity with body mass index (BMI) of 37.0 to 37.9 in adult]Onset: 213356-22-0754MiofgkeQfbbx and delivery including normal (20 sources)Encounter for supervision of normal , unspecified, unspecified trimester; Translations: [ state, incidental]Onset: 79-12-9436QasewwenYqdxv screening for suspected conditions (not mental disorders or infectious disease) (20 sources)Encounter for other screening follow-up; Translations: [Encounter for screening, unspecified]Onset: 54-44-5641SzvkpomrHmjep upper respiratory disease (8 sources)Seasonal allergic rhinitis; Translations: [Other seasonal allergic rhinitis]Onset: 515028-07-0346OuiwtclRuevgwkbmlkrjz and other problems of amniotic cavity (4 sources)Subchorionic hematoma; Translations: [Other specified disorders of amniotic fluid and membranes, first trimester, not applicable or unspecified] Onset: 938383-94-0682XvnechvnKaefkqvi codes; unclassified (1 source)34 weeks gestation of ; Translations: [34 WEEKS GESTATION OF ]Onset: 69-67-0815QubhxzhnVesopkdn codes; unclassified (1 source)33 weeks gestation of ; Translations: [33 WEEKS GESTATION OF ]Onset: 67-69-9218RlojznrwRrxpuael codes; unclassified (1 source)Gestation period, 8 weeks; Translations: [8 weeks gestation of ]91-10-3839CckxolupEesqpryp codes; unclassified (3 sources)H/O: miscarriage; Translations: [Personal history of other complications of , childbirth and the puerperium]74-22-7695Ibxvsjam Residual codes; unclassified (2 sources)Gestation period, 12 weeks; Translations: [12 weeks gestation of ]77-21-6342VpjcixjbNymlxhut codes; unclassified (2 sources)Gestation period, 17 weeks; Translations: [17 weeks gestation of ]77-01-4411HqqklcyeVvpqxgui codes; unclassified (2 sources)Gestation period, 20 weeks; Translations: [20 weeks gestation of ]93-87-6957JnlzxnduMctpvssk codes; unclassified (2 sources)Gestation period, 25 weeks; Translations: [25 weeks gestation of ]09-27-5570BsugdnfjPvgamnhi codes; unclassified (2 sources)Gestation period, 28 weeks; Translations: [28 weeks gestation of ]61-25-0056WtkryzfqCsjohhgr codes; unclassified (2 sources)Gestation period, 30 weeks; Translations: [30 weeks gestation of ]46-38-3291VtigmjksVlnbyuhl codes; unclassified (2 sources)Gestation period, 32 weeks; Translations: [32 weeks gestation of ]28-07-5209JttjxmmdHtqzugpb codes; unclassified (2 sources)Gestation period, 34 weeks; Translations: [34 weeks gestation of ]51-80-5774JmdltiypZoiublrl codes; unclassified (2 sources)Gestation period, 36 weeks; Translations: [36 weeks gestation of ]51-11-3205WxpiwifpVysqyumy codes; unclassified (2 sources)Gestation period, 37 weeks; Translations: [37 weeks gestation of ]66-25-1923KpljcktiNdddfjvlqcak (1 source)Cancer cervix screening status; Translations: [Screening for cervical cancer]Unclassified (3 sources)Patient encounter status; Translations: [Encounter for annual routine gynecological examination]Unclassified (20 sources)OB RemindersOnset: 231307-37-3974 Past or Other Problems Problem ClassificationProblemDateDocumented DateEpisodic/ChronicCardiac dysrhythmias (2 sources)Palpitations; Translations: [Palpitations]Onset: 32-78-7605Ljokwnap Deficiency and other anemia (3 sources)Iron deficiency anemia; Translations: [Iron deficiency anemia, unspecified]Onset: 282569-11-9580LtypgtojQwzxovedxi and other anemia (1 source)Iron deficiency anemia, unspecified; Translations: [Iron deficiency anemia, unspecified]Onset: 94-89-4690ZvwulhomUljptoll mellitus without complication (20 sources)Other abnormal glucose; Translations: [Abnormal glucose level]Onset: 20-22-5238IomfzrgrZktnvwy and fatigue (20 sources)Fatigue; Translations: [Other fatigue]Onset: EpisodicMenstrual disorders (20 sources)Amenorrhea; Translations: [Amenorrhea, unspecified]Onset: 06-23-2022 Resolved: 42-63-0047ZxjbcypZyvhd disorders of stomach and duodenum (20 sources)Indigestion; Translations: [Functional dyspepsia]Onset: 01-13-2023 17-85-3121SlsdhmyeRhonr female genital disorders (4 sources)Other specified noninflammatory disorders of vagina; Translations: [OTH SPEC NONINFLAMMATORY D/O VAGINA]Onset: 12-58-5598AshnskgcRzynz gastrointestinal disorders (20 sources)Heartburn; Translations: [Heartburn]Onset: EpisodicOther liver diseases (4 sources)Elevated liver enzymes level; Translations: [Abnormal levels of other serum enzymes]Onset: 441122-40-4449RpdlbfuiGjudu liver diseases (1 source)Abnormal levels of other serum enzymes; Translations: [Abnormal levels of other serum enzymes]Onset: 80-46-9788CxyuphgeSgzqa skin disorders (3 sources)Acne; Translations: [Acne, unspecified]Onset: 10-17-2023 Resolved: 888467-95-0454UzyichurXcdpb upper respiratory infections (2 sources)Sore throat symptom; Translations: [Acute pharyngitis, unspecified] Onset: 09-10-2024 Resolved: 385841-41-7139WvnqpcvqMretutof codes; unclassified (1 source)Family history of other diseases of the digestive system; Translations: [Family history of other diseases of the digestive system]Onset: 02-00-4258TwywjfudCayvxwwv codes; unclassified (20 sources)Gestation period, 23 weeks; Translations: [23 weeks gestation of ]Onset: 829163-91-8895AwoctrtpGmlgyha tract infections (20 sources)Recurrent urinary tract infection; Translations: [Urinary tract infection, site not specified]Onset: 11-30-2020 Resolved: 53-14-7368Yqfylbsk Results Test NameValueInterpretationReference RangeFacilitySTREP GP B CULTURE+RFLXon 36-88-8816DMDDP GP B CULTURE+RFLX Strep Gp B Culture+Rflx [facility] HealthcareSTREP GP B CULTURE+RFLXNegativeNOMS HealthcareSTREP GP B CULTURE+RFLXCenters for Disease Control and Prevention (CDC) andNORI Healthcare STREP GP B CULTURE+RFLXAmerican Congress of [...] GP B CULTURE+RFLXPerformed at: CB - [facility] HealthcareSTREP GP B CULTURE+[id number] [place], [place] [id number] HealthcareSTREP GP B CULTURE+RFLXLab Director: Elian Mccray PhD, Phone: [phone] HealthcareCLINISYNCNOMS HealthcareUrinalysis macro (dipstick) panel (U)on 22-94-9640Oedbeyhyw, UANegativeNegative - 4(70) +++ mg/dLNOMS HealthcareBlood, UANegativeNegative [...] mg/dLNOMS HealthcareNOMS HealthcareUS OB BPP W NON-STRESSon 76-75-2495[address] [address] Ultrasound Report Signed Patient: VINNY DOWNEY MR#: [id number] : 2000 Acct:[id number] Age/Sex: 24 / F ADM Date: 05/28/25 Loc: US Attending Dr: Mukul Foy D.O. Ordering Physician: Mukul Foy D.O. Date of Service: 05/28/25 Procedure(s): US OB BPP w non-stress Accession Number(s): [id number] cc: Mukul Foy D.O.; Ynes Rodriguez NP [facility] [place] [id number] Patient Name: VINNY DOWNEY MRN: [id number] date: 2000 Sex: F Assigned Patient Location: US Current Patient Location: Accession/Order Number: [id number] Exam Date: 05/28/2025 16:05 Report Date: 05/29/2025 [...] Flores M.D. 05/29/2025 10:10 AM Dictation Location: [place] [address] Electronically authenticated by: [id number] Y Date: 05/29/2025 10:10 Dictated By: Criselda Flores M.D. Signed By: 05/29/25 1013 DD/ 1010 TD/TT: Field Spec:MILYHRadiology, Radiologist, - 05/29/2025 [place] [address] Ultrasound Report Signed Patient: VINNY DOWNEY MR#: [id number] : 2000 Acct:[id number] Age/Sex: 24 / F ADM Date: 05/28/25 Loc: US Attending Dr: Mukul Foy D.O. Ordering Physician: Mukul Foy D.O. Date of Service: 05/28/25 Procedure(s): US OB BPP w non-stress Accession Number(s): [id number] cc: Mukul Foy D.O.; Ynes Rodriguez NP [place] [address] Patient Name: VINNY DOWNEY MRN: [id number] date: 2000 Sex: F Assigned Patient Location: US Current Patient Location: US Accession/Order Number: [id number] Exam Date: 05/28/2025 16:05 Report Date: 05/29/2025 [...] Flores M.D. 05/29/2025 10:10 AM Dictation Location: [place] [address] Electronically authenticated by: [id number] Y Date: 05/29/2025 10:10 Dictated By: Criselda Flores M.D. Signed By: 05/29/25 1013 DD/ 1010 TD/TT: Field Spec: DIANE HealthcareRadiology Study observation (narrative)NOMS HealthcareUS OB BPP W NON-STRESSOrdered By: Radiologist Radiology on 86-75-5766[facility] Healthcare Work Phone: US OB FOLLOW UP TRANSABDOMINAL APPROACHon 46-34-7893TQ OB FOLLOW UP TRANSABDOMINAL APPROACHFINDINGS: Comparison February [...] Delivery: 06/23/25 Gestational Age as of 05/14/2025: 02i0jOtaufnevxd macro (dipstick) panel (U)on 86-52-2910Yqlshjclg, UANegativeNegative - 4(70) +++ mg/dLNOMS HealthcareBlood, UANegativeNegative [...] mg/dLNOMS HealthcareNOMS HealthcareUS OB BPP W NON-STRESSon 84-38-4944[place] [address] Ultrasound Report Signed Patient: VINNY DOWNEY MR#: [id number] : 2000 Acct:[id number] Age/Sex: 24 / F ADM Date: 05/21/25 Loc: US Attending Dr: Mukul Foy D.O. Ordering Physician: Mukul Foy D.O. Date of Service: 05/21/25 Procedure(s): US OB BPP w non-stress Accession Number(s): [id number] cc: Mukul Foy D.O.; Ynes Rodriguez [place] [address] Patient Name: VINNY DOWNEY MRN: [facility]:[id number] date: 2000 Sex: F Assigned Patient Location: [facility] Current Patient Location: Accession/Order Number: [id number] Exam Date: 05/21/2025 16:12 Report Date: 05/21/2025 19:56 At the request of: MUKUL FOY DO Procedure: US OB BPP w non-stress Ultrasound biophysical profile INDICATION: Gestational diabetes COMPARISON: 05/07/2025 FINDINGS/IMPRESSION:: Fetus cephalic position. 8/8 score biophysical profile. heart rate 139 beats per minutes. JAMAL 19.1 cm . Impression dictated by: Chevy Moreland M.D. 05/21/2025 7:56 PM Dictation Location: [place] [address] Electronically authenticated by: [id number] Y Date: 05/21/2025 19:56 Dictated By: Chevy Moreland M.D. Signed By: 05/21/251958 DD/ 55 TD/TT: Field Spec:JAMILAHadiolSkip chaves, - 05/21/2025 [place] [address] Ultrasound Report Signed Patient: VINNY DOWNEY MR#: [id number] : 2000 Acct:[id number] Age/Sex: 24 / F ADM Date: 05/21/25 Loc: US Attending Dr: Mukul Foy D.O. Ordering Physician: Mukul Foy D.O. Date of Service: 05/21/25 Procedure(s): US OB BPP w non-stress Accession Number(s): [id number] cc: Mukul Foy D.O.; Ynes Rodriguez NP The [place] [address] Patient Name: VINNY DOWNEY MRN: [facility]:[id number] date: 2000 Sex: F Assigned Patient Location: [facility] Current Patient Location: Accession/Order Number: [id number] Exam Date: 05/21/2025 16:12 Report Date: 05/21/2025 19:56 At the request of: MUKUL FOY DO Procedure: US OB BPP w non-stress Ultrasound biophysical profile INDICATION: Gestational diabetes COMPARISON: 05/07/2025 FINDINGS/IMPRESSION:: Fetus cephalic position. 8/8 score biophysical profile. heart rate 139 beats per minutes. JAMAL 19.1 cm . Impression dictated by: Chevy Moreland M.D. 05/21/2025 7:56 PM Dictation Location: [place] [address] Electronically authenticated by: [id number] Y Date: 05/21/2025 19:56 Dictated By: Chevy Moreland M.D. Signed By: 05/21/251958 DD/ 55 TD/TT: Field Spec: DIANE HealthcareRadiology Study observation (narrative)NOMS HealthcareUS OB BPP W NON-STRESSOrdered By: Radiologist Radiology on 62-36-1888NJKB [facility] Work Phone: US OB BPP W NON-STRESSon 35-60-9817Sq[place] [address] Ultrasound Report Signed Patient: VINNY DOWNEY MR#: [id number] : 2000 Acct:[id number] Age/Sex: 24 / F ADM Date: 05/14/25 Loc: US Attending Dr: Mukul Foy D.O. Ordering Physician: Mukul Foy D.O. Date of Service: 05/14/25 Procedure(s): US OB BPP w non-stress Accession Number(s): [id number] cc: Mukul Foy D.O.; Ynes Rodriguez The [place] [id number] Patient Name: VINNY DOWNEY MRN: [facility]:[id number] date: 2000 Sex: F Assigned Patient Location: Current Patient Location: [facility] Accession/Order Number: [id number] Exam Date: 05/14/2025 16:00 Report Date: 05/14/2025 22:20 At the request of: MUKUL FOY DO Procedure: US OB BPP w non-stress Ultrasound biophysical profile INDICATION: Gestational diabetes COMPARISON: 05/07/2025 FINDINGS/IMPRESSION:: Fetus cephalic position. 8/8 score biophysical profile. heart rate 1:30 beats per minutes. JAMAL 17.4 cm . Impression dictated by: Chevy Moreland M.D. 05/14/2025 10:20 PM Dictation Location: [place] [address] Electronically authenticated by: [id number] Y Date: 05/14/2025 22:20 Dictated By: Chevy Moreland M.D. Signed By: 05/14/252222 DD/ 19 TD/TT: Field Spec:JAMILAHadiologvicki, Radiologist, - 06/03/2025 The [place] [id number] Ultrasound Report Signed Patient: VINNY DOWNEY MR#: [id number] : 2000 Acct:[id number] Age/Sex: 24 / F ADM Date: 05/14/25 Loc: US Attending Dr: Mukul Foy D.O. Ordering Physician: Mukul Foy D.O. Date of Service: 05/14/25 Procedure(s): US OB BPP w non-stress Accession Number(s): [id number] cc: Mukul Foy D.O.; Ynes Rodriguez [employer] [place] [address] Patient Name: VINNY DOWNEY MRN: H:[id number] date: 2000 Sex: F Assigned Patient Location: Current Patient Location: [facility] Accession/Order Number: [id number] Exam Date: 05/14/2025 16:00 Report Date: 05/14/2025 22:20 At the request of: MUKUL FOY DO Procedure: US OB BPP w non-stress Ultrasound biophysical profile INDICATION: Gestational diabetes COMPARISON: 05/07/2025 FINDINGS/IMPRESSION:: Fetus cephalic position. 8/8 score biophysical profile. heart rate 1:30 beats per minutes. JAMAL 17.4 cm . Impression dictated by: Chevy Moreland M.D. 05/14/2025 10:20 PM Dictation Location: [place] [address] Electronically authenticated by: [id number] Y Date: 05/14/2025 22:20 Dictated By: Chevy Moreland M.D. Signed By: 05/14/252222 DD/ 19 TD/TT: Field Spec: NOMS HealthcareRadiology Study observation (narrative)NOMS HealthcareUS OB BPP W NON-STRESSOrdered By: Radiologist Radiology on 26-35-9005YIFH [facility] Work Phone: Urinalysis macro (dipstick) panel (U)on 05-14-2025 Bilirubin, UANegativeNegative - 4(70) +++ mg/dLNOMS HealthcareBlood, UANegative Negative - 50 Yunior/mcLNOMS HealthcareClarity, UAClearNOMS HealthcareColor, UA YellowNOMS HealthcareGlucose, UANegativeNegative - 2000(110) ++++ mg/dLNORI HealthcareInterpretation and review of laboratory resultsNormalNOMS Healthcare Ketones, UANegativeNegative - 160(16) ++++ mg/dLNORI HealthcareLeukocytes, UA NegativeNegative - 500+++ Trip/mcLNOMS HealthcareNitrite, UANegativeNegative - PositiveNOMS HealthcarepH, UA6.55 - 9NOMS HealthcareProtein, UANegativeNegative - 2000(20) ++++ mg/dLNORI HealthcareSpec Grav, UA1.0101 - 1.03NORI Healthcare Urobilinogen, UA2.00.2 - 12 mg/dLNORI HealthcareNORI HealthcareTBH UA (CLEAN/CATCH) BOAT DOCK OPERATOR/MICRO IF IND.on 11-45-5524TWVDARRBI URINENegativeNEGATIVENOMS HealthcareBLOOD URINENegativeNEGATIVENOMS HealthcareClarity (U)CLEARCLEARNOMS HealthcareColor (U)LT. YELLOWYELLOWNOMS HealthcareGLUCOSE URINE UANegative NEGATIVE mg/dLNORI HealthcareInterpretation and review of laboratory results AbnormalNOMS HealthcareKetones Ql (U)NegativeNEGATIVE mg/dLNORI Healthcare Leukocyte esterase Test strip Ql (U)SMALLAbnormalNEGATIVENOMS HealthcareNITRITE URINENegativeNEGATIVENOMS HealthcarepH (U)7.0 [pH]5.0 - 9.0NOR[facility] Healthcare PROTEIN URINENegativeNEG/TRACE mg/dLNORI HealthcareSPECIFIC GRAVITY URINE<=1.005 Abnormal1.005 - 1.025NORI HealthcareURINE MICROSCOPIC INDICATEDYESNORI HealthcareUROBILINOGEN URINE0.2 EU/dL0.2 - 1.0 EU/dLNORI HealthcareCLINISYNCNOMS HealthcareUS OB BPP W NON-STRESSon 96-84-5652[address] [address] Ultrasound Report Signed Patient: VINNY DOWNEY MR#: [id number] : 2000 Acct:[id number] Age/Sex: 24 / F ADM Date: 05/07/25 Loc: US Attending Dr: Mukul Foy D.O. Ordering Physician: Mukul Foy D.O. Date of Service: 05/07/25 Procedure(s): US OB BPP w non-stress Accession Number(s): [id number] cc: uMkul Foy D.O.; Ynes Rodriguez NP The [place] [id number] Patient Name: VINNY DOWNEY MRN: [facility]:[id number] date: 2000 Sex: F Assigned Patient Location: Current Patient Location: Accession/Order Number: [id number] Exam Date: 05/07/2025 16:45 Report Date: 05/08/2025 [...] Yepez M.D. 05/08/2025 12:28 AM Dictation Location: [place] [address] Electronically authenticated by: [id number] Y Date: 05/08/2025 00:28 Dictated By: Pavel Yepez M.D. Signed By: 05/08/25 0030 DD/ 0028 TD/TT: Field Spec:MILYHRadiology, Radiologist, MD - 06/03/[address] [address] Ultrasound Report Signed Patient: VINNY DOWNEY MR#: [id number] : 2000 Acct:[id number] Age/Sex: 24 / F ADM Date: 05/07/25 Loc: US Attending Dr: Mukul Foy D.O. Ordering Physician: Mukul Foy D.O. Date of Service: 05/07/25 Procedure(s): US OB BPP w non-stress Accession Number(s): [id number] cc: Mukul Foy D.O.; Ynes Rodriguez NP [place] [address] Patient Name: VINNY DOWNEY MRN: [facility]:[id number] date: 2000 Sex: F Assigned Patient Location: US Current Patient Location: Accession/Order Number: [id number] Exam Date: 05/07/2025 16:45 Report Date: 05/08/2025 [...] Yepez M.D. 05/08/2025 12:28 AM Dictation Location: [place] [address] Electronically authenticated by: [id number] Y Date: 05/08/2025 00:28 Dictated By: Pavel Yepez M.D. Signed By: 05/08/2529 DD/ TD/TT: Field Spec: DIANE HealthcareRadiology Study observation (narrative)NOMS HealthcareUS OB BPP W NON-STRESSOrdered By: Radiologist Radiology on 07-68-1375FNFC [employer] Work Phone: us OB BPP W NON-STRESSon 60-29-1717[place] [address] Ultrasound Report Signed Patient: VINNY DOWNEY MR#: [id number] : 2000 Acct:[id number] Age/Sex: 24 / F ADM Date: 04/30/25 Loc: US Attending Dr: Mukul Foy D.O. Ordering Physician: Mukul Foy D.O. Date of Service: 04/30/25 Procedure(s): US OB BPP w non-stress Accession Number(s): [id number] cc: Mukul Foy D.O.; Ynes Rodriguez [place] [id number] Patient Name: VINNY DOWNEY MRN: [facility]:[id number] date: 2000 Sex: F Assigned Patient Location: [facility] Current Patient Location: Accession/Order Number: [id number] Exam Date: 04/30/2025 15:57 Report Date: 04/30/2025 22:59 At the request of: MUKUL FOY DO Procedure: US OB BPP w non-stress Ultrasound biophysical profile INDICATION: Gestational diabetes COMPARISON: 04/05/2025 FINDINGS/IMPRESSION:: Fetus cephalic position. 8/8 score biophysical profile. heart rate 145 beats per minutes. JAMAL 12.7 cm. Impression dictated by: Chevy Moreland M.D. 04/30/2025 10:59 PM Dictation Location: [place] [address] Electronically authenticated by: [id number] Y Date: 04/30/2025 22:59 Dictated By: Chevy Moreland M.D. Signed By: 04/30/252301 DD/ 58 TD/TT: Field Spec:JAMILAHadiolandie, Radiologist, - 04/30/2025 [place] [address] Ultrasound Report Signed Patient: VINNY DOWNEY MR#: [id number] : 2000 Acct:[id number] Age/Sex: 24 / F ADM Date: 04/30/25 Loc: US Attending Dr: Mukul oFy D.O. Ordering Physician: Mukul Foy D.O. Date of Service: 04/30/25 Procedure(s): US OB BPP w non-stress Accession Number(s): [id number] cc: Mukul Foy D.O.; Ynes Rodriguez NP [place] [phone] Patient Name: VINNY DOWNEY MRN: [facility]:[id number] date: 2000 Sex: F Assigned Patient Location: [facility] Current Patient Location: Accession/Order Number: [id number] Exam Date: 04/30/2025 15:57 Report Date: 04/30/2025 22:59 At the request of: MUKUL FOY DO Procedure: US OB BPP w non-stress Ultrasound biophysical profile INDICATION: Gestational diabetes COMPARISON: 04/05/2025 FINDINGS/IMPRESSION:: Fetus cephalic position. 02/28 score biophysical profile. heart rate 145 beats per minutes. JAMAL 12.7 cm. Impression dictated by: Chevy Moreland M.D. 04/30/2025 10:59 PM Dictation Location: [place] [address] Electronically authenticated by: [id number] Y Date: 04/30/2025 22:59 Dictated By: Chevy Moreland M.D. Signed By: 04/30/252301 DD/ 58 TD/TT: Field Spec: NOMRenzo HealthcareRadiology Study observation (narrative)NOMS HealthcareUS OB BPP W NON-STRESSOrdered By: Radiologist Radiology on 47-36-2748CGXGWestern [facility] Medical Center Work Phone: Urinalysis macro (dipstick) panel (U)on 04-30-2025 Bilirubin, UANegativeNegative - 4(70) +++ mg/dLNORI HealthcareBlood, UANegative Negative - 50 Yunior/mcLNOMS HealthcareClarity, [...] mg/dLNOMS HealthcareNOMS HealthcareUrinalysis macro (dipstick) panel (U)on 59-85-8154Xjgpibypu, UANegativeNegative - 4(70) +++ mg/dL NOMS HealthcareBlood, UANegativeNegative - 50 Yunior/mcLNOMS HealthcareClarity, UA ClearNOMS HealthcareColor, UAYellowNOMS HealthcareGlucose, UANegativeNegative - 1999(110) ++++ mg/dLNOMS HealthcareInterpretation and review of laboratory resultsNormalNOMS HealthcareKetones, UANegativeNegative - 160(16) ++++ mg/dLNOMS HealthcareLeukocytes, UANegativeNegative - 500+++ Trip/[facility] Healthcare Nitrite, UANegativeNegative - PositiveNOMS HealthcarepH, UA6.55 - 9NOMS HealthcareProtein, UANegativeNegative - 1999(20) ++++ mg/dLNOMS HealthcareSpec Grav, UA1.0051 - 1.03NORI HealthcareUrobilinogen, UA0.20.2 - 12 mg/dLNOMS HealthcareNOMS HealthcareALL CBC WITH AUTO DIFFon 75-89-3589XDHBLTINO ABSOLUTE PYJY5LNPB HealthcareBasophils/100 WBC (Bld)0.2 %0.2 - 2.0 %[facility] Eosinophils/100 WBC (Bld)1.1 %0.9 - 7.0 %NOMS HealthcareErythrocyte distribution width (RBC) [Ratio]12.8 %11.0 - 15.0 %[facility] Medical CenterHematocrit (Bld) [Volume fraction]30.7 %Low36.0 - 48.0 %[facility] CenterHemoglobin (Bld) [Mass/Vol]10.3 g/dLLow12.0 - 16.0 g/dLWestern Missouri Medical CenterIMMATURE GRANULOCYTES ABS AUTO0.04HighNOPemiscot Memorial Health SystemsImmature granulocytes/100 WBC (Bld)0.4 %0.0 - 0.5 %[facility] Interpretation and review of laboratory resultsAbnormalNOPemiscot Memorial Health Systems LYMPHOCYTES ABSOLUTE AUTO1.9NOPemiscot Memorial Health SystemsLymphocytes/100 WBC (Bld)17.1 %Low 20.5 - 60.0 %[facility] CenterMCH (RBC) [Entitic mass]29.7 pg26.7 - 34.0 pgSaint Louis University Health Science CenterHC (RBC) [Mass/Vol]33.6 g/dL29.9 - 35.2 g/dLWestern Missouri Medical CenterMCV (RBC) [Entitic vol]88.5 fL81.0 - 99.0 fLWestern Missouri Medical CenterMONOCYTES ABSOLUTE AUTO0.7NOMS HealthcareMonocytes/100 WBC (Bld)6.5 %1.7 - 12.0 %[facility] CenterNEUTROPHILS ABSOLUTE AUTO8.2HighNOMS HealthcareNeutrophils/100 WBC (Bld)74.7 %43.0 - 75.0 % [facility] CenterPlatelet mean volume (Bld) [Entitic vol]8.7 fLLow9.5 - 13.5 fL [facility] CenterTBH EO #0.1NOMS HealthcareTB IAO842QXAA [facility] HamiltonTB RBC3.47Low [facility] CenterTB AYA58DIBI HealthcareCLINISYNCNOMS HealthcareUS OB GROWTHon 68-64-1001R[address] [address] Ultrasound Report Signed Patient: VINNY DOWNEY MR#: [id number] : 2000 Acct:[id number] Age/Sex: 24 / F ADM Date: 04/05/25 Loc: Attending Dr: Regina Barton Ordering Physician: Regina Barton Date of Service: 04/05/25 Procedure(s): US OB growth Accession Number(s): [id number] cc: Regina Barton; Physician,Non-Staff MPatricia The [address] [address] Patient Name: VINNY DOWNEY [facility]N: [facility]:[id number] date: 2000 Sex: F Assigned Patient Location: US Current Patient Location: LAB Accession/Order Number: [id number] Exam Date: 04/05/2025 10:00 Report Date: 04/05/2025 [...] Peraza M.D. 04/05/2025 12:08 PM Dictation Location: [place] [address] Electronically authenticated by: [id number] Y Date: 04/05/2025 12:08 Dictated By: Daryn Peraza D.O. Signed By: 04/05/25 1211 DD/ 1208 TD/TT: Field Spec:JAMILAHadiologvicki, Radiologist, - 04/05/2025 The [place] [id number] Ultrasound Report Signed Patient: VINNY DOWNEY MR#: [id number] : 2000 Acct:[id number] Age/Sex: 24 / F ADM Date: 04/05/25 Loc: US Attending Dr: Regina Barton Ordering Physician: Regina Barton Date of Service: 04/05/25 Procedure(s): US OB growth Accession Number(s): [id number] cc: Regina Barton; Physician,Non-Staff Khadar The [address] [address] Patient Name: VINNY DOWNEY MRN: [facility]:[id number] date: 2000 Sex: F Assigned Patient Location: Current Patient Location: LAB Accession/Order Number: [id number] Exam Date: 04/05/2025 10:00 Report Date: 04/05/2025 [...] Peraza M.D. 04/05/2025 12:08 PM Dictation Location: [employer] Electronically authenticated by: [id number] Y Date: 04/05/2025 12:08 Dictated By: Daryn Peraza D.O. Signed By: 04/05/25 1211 DD/ 1208 TD/TT: Field Spec: DIANE HealthcareRadiology Study observation (narrative)DIANE FletcherUS OB GROWTHOrdered By: Radiologist Radiology on 86-71-6761NXLP [facility] Work Phone: Urinalysis macro (dipstick) panel [...] mg/dLNOMS HealthcareNOMS HealthcareUrinalysis macro (dipstick) panel (U)on 21-54-4791Kwqscuxtz, UANegativeNegative - 4(70) +++ mg/dL NOMS HealthcareBlood, [...] mg/dLNOMS HealthcareNOMS HealthcareUrinalysis macro (dipstick) panel (U)on 34-10-0324Vuwwrzsmo, UA NegativeNegative - 4(70) +++ mg/dLNOMS HealthcareBlood, [...] HealthcareNOMS HealthcareUS OB 14+ WEEKS ANATOMY SCANon 45-12-4359IV OB 14+ WEEKS ANATOMY SCANFINDINGS: A single, [...] Delivery: 06/23/25 Gestational Age as of 01/15/2025: 36f1yJajftafyns macro (dipstick) panel (U)on 62-57-1160Vbghxmsgs, UANegativeNegative - 4(70) +++ mg/dLNOMS HealthcareBlood, UANegativeNegative [...] - 12 mg/dLNOMS HealthcareNOMS HealthcareRECURRENT VAGINITIS (HTRX)on 91-56-2098VCKQWCALZ SFVRUWA0GPOH HealthcareATOPOBIUM VAGINAENot detectedNOMS HealthcareBVAB 2,3 (BACTERIAL VAGINOSIS ASSOCIATED BACTERIA 2, 3); MOBILUNCUS HFP4PAVT HealthcareBVAB 2,3 (BACTERIAL VAGINOSIS ASSOCIATED BACTERIA 2, 3); MOBILUNCUS SPPNot detectedNOMS HealthcareCANDIDA ALBICANS, PARAPSILOSIS, KEGPSYAIHY3RNHZ HealthcareCANDIDA ALBICANS, PARAPSILOSIS, TROPICALISNot detectedNOMS HealthcareCANDIDA GLABRATA0 NOMS HealthcareCANDIDA GLABRATANot detectedNOMS HealthcareCANDIDA WVYTYI7XNSA HealthcareCANDIDA KRUSEINot detectedNOMS HealthcareCHLAMYDIA XLWGZNPPXPE2FFMV HealthcareCHLAMYDIA TRACHOMATISNot detectedNOMS HealthcareGARDNERELLA VAGINALIS0 NOMS HealthcareGARDNERELLA VAGINALISNot detectedNOMS HealthcareMEGASPHAERA (TYPES 1, 2)0NOMS HealthcareMEGASPHAERA (TYPES 1, 2)Not detectedNOMS Healthcare MYCOPLASMA RLXAJZVPQX3PMYX HealthcareMYCOPLASMA GENITALIUMNot detectedNOMS HealthcareNEISSERIA CEBOIZKYTOO3HTLR HealthcareNEISSERIA GONORRHOEAENot detected NOMS HealthcareTRICHOMONAS OCDYUIEYU8WAWQ HealthcareTRICHOMONAS VAGINALISNot detectedNOMS HealthcareNOMS HealthcareCBCon 21-17-3828Ekrsnbrkpbr distribution width (RBC) [Ratio]12.6 %11.8 - 14.4 %[facility] Health - DanvilleHematocrit (Bld) [Volume fraction]35.4 %Low36.3 - 47.1 %[facility] - DanvilleHemoglobin (Bld) [Mass/Vol]11.7 g/dLLow11.9 - 15.1 g/dLBon Togus Va Medical CenterInterpretation and review of laboratory resultsAbnormalBon [facility] (RBC) [Entitic mass]30 pg25.2 - 33.[address] [facility] (RBC) [Mass/Vol]33.1 g/dL 28.4 - 34.8 g/dLBon [facility]ogus Va Medical CenterMCV (RBC) [Entitic vol]90.8 fL82.6 - 102.9 fLSovah Health - DanvilleNucleated RBC/100 WBC (Bld) [Ratio]0 %0.0 per 100 WBCBon Togus Va Medical CenterPlatelet mean volume (Bld) [Entitic vol]8.7 fL8.1 - 13.5 fLSovah Health - DanvillePlatelets (Bld) [#/Vol]316 10*3/uLBon Togus Va Medical CenterRBC (Bld) [#/Vol]3.9 10*6/uLLow3.95 - 5.11 m/uLSovah Health - DanvilleWBC other (Bld) [#/Vol]10.2Bon [facility] Peterson Memorial HospitalErythrocyte distribution width (RBC) [Ratio]12.6 %Bufsti23.8-14.4Park[facility] Montpelier HospitalComment on above:Performed By: #### GLUSC, CBC #### [address] [place], [facility]83 Decorating Consultant: Yelena Greco MDHematocrit (Bld) [Volume fraction]35.4 %Low 36.3-47.1MSt. Charles HospitalComment on above:Performed By: #### GLUSC, CBC #### [address] [place] [address] Decorating Consultant: Yelena Greco MDHemoglobin (Bld) [Mass/Vol]11.7 g/dLLow11.9-15.1 [facility]ier HospitalComment on above:Performed By: #### GLUSC, CBC #### [address] [place] [address] Decorating Consultant: YULY ArandaCH (RBC) [Entitic mass]30.0 miGymuoh08.2-33.5 [facility] HospitalComment on above:Performed By: #### GLUSC, CBC #### [address] [place], [place] [address] Decorating Consultant: YULY ArandaCHC (RBC) [Mass/Vol]33.1 g/nAVryvhy81.4-34.8[facility] HospitalComment on above:Performed By: #### GLUSC, CBC #### [address] [place], [place] [address] Decorating Consultant: YULY ArandaCV (RBC) [Entitic vol]90.8 iPGoedkm30.6-102.9 [facility] HospitalComment on above:Performed By: #### GLUSILVINO, CBC #### [address] [place], [place] [address] Decorating Consultant: Yelena Greco MDNRBC Automated0.0 per 100 WBCNormal0.0[facility] HospitalComment on above:Performed By: #### GLUSILVINO, CBC #### [address] [place], [place] [address] Decorating Consultant: Sobeida Aranda mean volume (Bld) [Entitic vol]8.7 fL Normal8.1-13.5[facility] HospitalComment on above:Performed By: #### GLUSC, CBC #### [address] [place], [place] 22[address] Decorating Consultant: Richie Aranda (Bld) [#/Vol]316 10*3/yOZucoxk667-920 [facility] HospitalComment on above:Performed By: #### GLUSC, CBC #### [address] [place], [place] [address] Decorating Consultant: JO ANN ArandaBC (Bld) [#/Vol]3.90 10*6/uLLow3.95-5.11[facility] HospitalComment on above:Performed By: #### GLUSC, CBC #### [address] [place], [place] [address] Decorating Consultant: JOSELITO Aranda ([facility]) [#/Vol]10.2 10*3/uLNormal3.5-11.3MSt. Charles HospitalComment on above:Performed By: #### GLUSC, CBC #### [address] [place], [place] [address] Decorating Consultant: Yelena Greco MDGlucose Challenge Gestationalon 65-06-2538EPV ADMN GlucolaBon Togus Va Medical CenterGlucose 1 Hr post 50 g glucose PO [Mass/Vol]184 mg/pVWptb07 - 135 mg/dLBon [facility] Medical CenterInterpretation and review of laboratory resultsAbnormalBon [facility] Glucose Toya Scr 50gon 18-66-0019Fdwsqdp [Mass/Vol]184 mg/cQGegx28-496FnpcyParkview Health Montpelier HospitalComment on above:Performed By: #### GLUSILVINO, CBC #### [address] [place] [address] Decorating Consultant: Yelena Greco MDGlu Administered viaGlucolaNormalParkview Health Montpelier HospitalComment on above:Performed By: #### GLUSILVINO, CBC #### [address] [place] [address] Decorating Consultant: Yelena Greco MDUS OB LESS THAN 14 WEEKS SINGLE OR FIRST GESTATION on 88-03-8971BTQASDCTBKU: FIRST TRIMESTER OBSTETRIC ULTRASOUND 12/20/2024 TECHNIQUE: 1. [...] Rivero MD 12/23/24 Final result [facility] CenterRadiology Study observation (narrative)NOMKindred HospitalUS OB LESS THAN 14 WEEKS SINGLE OR FIRST GESTATIONOrdered By: Radiologist Radiology on 56-80-1175MLQD [employer] Work Phone: US OB LESS THAN 14 WEEKS SINGLE OR FIRST GESTATION W DOPPLERon 11-67-7589BB OB LESS THAN 14 WEEKS SINGLE OR [...] by: Noah Rivero MD 12/23/24 Final resultNormalMercy Narvon HospitalUrinalysis macro (dipstick) panel (U)on 80-06-0082Ywyeykrzp, UANegativeNegative - 4(70) +++ mg/dLNOMS HealthcareBlood, UAPositiveNegative [...] - 1.03 NOMS HealthcareUrobilinogen, UA1.00.2 - 12 mg/dLSoutheast Missouri Hospital Healthcare HCG ( test) Ql (U)on 41-16-5384Qdcwyrpddlrmoh and review of laboratory resultsAbnormalMOUNTAINSTAR HEALTHCARE HealthcarePreg Test, UrPositiveNegativeNOPemiscot Memorial Health SystemsNORI HealthcareUS OB TRANSVAGINALon 23-55-1770EU OB TRANSVAGINALEXAM: US OB TRANSVAGINAL HISTORY: Dating. [...] II, MD, PHD at 15-Nov-2024 09:44:32 AM [facility] TeleradiologyNormalNot AvailableComment on above:Order Comment: US OB TRANSVAGINAL No LMP recorded.Urinalysis macro (dipstick) panel (U)on 19-28-4696Loxblfxjf, UA NegativeNegative - 4(70) +++ mg/dLNOMS HealthcareBlood, UANegativeNegative - 50 Yunior/[facility] HealthcareClarity, UAClearNORI HealthcareColor, UAYellowNORI HealthcareGlucose, UANegativeNegative - 2000(110) ++++ mg/dLNORI Healthcare Interpretation and review of laboratory resultsNormalWestern Missouri Medical CenterKetones, UA NegativeNegative - 160(16) ++++ mg/dLMOUNTAINSTAR HEALTHCARE HealthcareLeukocytes, UANegative Negative - 500+++ Trip/[facility] HealthcareNitrite, UANegativeNegative - Positive NOMS HealthcarepH, UA6.55 - 9NORI HealthcareProtein, UANegativeNegative - 2000(20) ++++ mg/dLNORI HealthcareSpec Grav, UA1.0051 - 1.03NORI Healthcare Urobilinogen, UA0.20.2 - 12 mg/dLNOMS [facility]tering Health HamiltonNORI HealthcareIGP,APTIMA HPV,AGE GDLNon 86-96-4836KJA GDLN ACOG TESTINGNote.[facility] HealthcareComment on above:TESTS RESULT FLAG UNITS REF RANGE LAB Clinician Provided Cytology Information Source.............Cervix;Endocervix No. of containers..01 ThinPrep Vial Age Algo ACOG Addie... -19 08 FLAG LEGEND: L-Low Normal,H-High Normal,LL-Alert Low,HH-Alert High <-Panic Low,>-Panic High,A-Abnormal,AA-Critical Abnormal Performed at: 01 =G [facility] [place] [address] [facility] [place] [address] Anastasiya Moses MD, IGP, RFX APTIMA HPV ASCUNote.NOMS HealthcareComment on above:TESTS RESULT FLAG UNITS REF RANGE LAB DIAGNOSIS: 02 NEGATIVE FOR INTRAEPITHELIAL LESION OR MALIGNANCY. Specimen adequacy: 02 Satisfactory for evaluation. Endocervical and/or squamous metaplastic cells (endocervical component) are present. Performed by: Oswald Galaviz, Teacher Of The Visually Impaired ([facility]) . 02 Note: Note 02 The [...] Low,>-Panic High,A-Abnormal,AA-Critical Abnormal Performed at: [address] [id number] Anastasiya Moses MD, Performed at: =G - [facility] [address] [id number] Decorating Consultant: Anastasiya Moses MD, Phone: [phone] Performed at: - [facility] [id number] Decorating Consultant: Anastasiya Moses MD, Phone: [phone] [facility] Healthcare[facility] Metabolic Profon [id number] [Mass/Vol]4.6 g/dLNormal3.5-5.2[facility] HospitalComment on above:Performed By: #### CP #### [address] [place] [address] Decorating Consultant: Yelena Greco MDAlbumin/Glob Ratio1.7Prsmvs7.0-2.5[facility] Montpelier HospitalComment on above:Performed By: #### CP #### [address] [place] [address] Decorating Consultant: Nas Arandakaline Phos71 U/HKctlss35-814EilrcParkview Health Montpelier HospitalComment on above:Performed By: #### CP #### [address] [place] [address] Decorating Consultant: Yelena Greco MDALT [Catalytic activity/Vol]41 U/WNttn51-05ZqxobParkview Health Montpelier HospitalComment on above:Performed By: #### CP #### [address] [place] [address] Decorating Consultant: Yelena Greco MDAnion gap [Moles/Vol]10 mmol/LNormal9-16Park[facility] HospitalComment on above:Performed By: #### CP #### [address] [place] [address] Decorating Consultant: Yelena Greco MDAST [Catalytic activity/Vol]34 U/HAxkdev27-06Sawnm Tiffin HospitalComment on above:Performed By: #### CP #### [address] [place] [address] Decorating Consultant: Yelena Greco MDBilirubin [Mass/Vol]0.4 mg/dLNormal0.00-1.20Park[facility]pelier HospitalComment on above:Performed By: #### CP #### [facility] [address] [place] [address] [place] [address] Decorating Consultant: Yelena Greco MDBUN/CRE Wxtpy14Eebo2-40HekmdParkview Health Montpelier Hospital Comment on above:Performed By: #### CP #### [address] [place] [address] Decorating Consultant: Yelena Greco MDCalcium [Mass/Vol]9.4 mg/dLNormal8.6-10.4Park[facility]pelier HospitalComment on above:Performed By: #### CP #### [facility] [address] [place] [address] [place] [address] Decorating Consultant: Yelena Greco MDChloride [Moles/Vol]103 mmol/RUnkbpb50-347Lodjh Tiffin HospitalComment on above:Performed By: #### CP #### [facility] [address] [place] [address] [place] [address] Decorating Consultant: Yelena Greco MDCO2 [Moles/Vol]25 mmol/TAntdte57-75Csean Tiffin HospitalComment on above:Performed By: #### CP #### [address] [place] [phone] Decorating Consultant: NATALIO Arandareatinine [Mass/Vol]0.6 mg/dLNormal0.50-0.90Park[facility]pelier HospitalComment on above:Performed By: #### CP #### [address] [place] [phone] Decorating Consultant: Yelena Greco MDGFR/1.73 sq M.predicted among non-blacks MDRD (S/P/Bld) [Vol rate/Area]mL/min/{1.73_m2}Normal>60Park[facility]ier HospitalComment on above:Result Comment: These results are [...] renal tubular secretion.Performed By: #### CP #### [address] [place] [phone] Decorating Consultant: Yelena Greco MDGlucose [Mass/Vol]83 mg/hEFtjxda47-28Bmkmf [facility]port HospitalComment on above:Performed By: #### CP #### [address] [place] [phone] Decorating Consultant: ROLANDO Arandaotassium [Moles/Vol]4.6 mmol/LNormal3.7-5.3MSelect Medical TriHealth Rehabilitation Hospital HospitalComment on above:Performed By: #### CP #### [address] [place] [address] Decorating Consultant: Yelena Greco MDProtein [Mass/Vol]7.8 g/dLNormal6.6-8.7[facility] HospitalComment on above:Performed By: #### CP #### [facility] [address] [place] [address] Decorating Consultant: KARLIE Arandaodium [Moles/Vol]138 mmol/AIylyuk135-243NnorxParkview Health Montpelier HospitalComment on above:Performed By: #### CP #### [facility] [address] [place] [address] Decorating Consultant: Yelena Greco MDUrea nitrogen [Mass/Vol]13 mg/dLNormal6-20Park[facility] HospitalComment on above:Performed By: #### CP #### [facility] [address] [place] [address] Decorating Consultant: NATALIO Arandaomprehensive Metabolic Panelon [id number] [Mass/Vol]4.6 g/dL3.5 - 5.2 g/dLBon Togus Va Medical CenterAlbumin/Globulin [Mass ratio]1.5 {ratio}1.0 - 2.5Bon [facility] Va Medical CenterALP [Catalytic activity/Vol]71 U/L35 - 104 U/LBon [facility] HealthALT [Catalytic activity/Vol]41 U/LHigh10 - 35 U/LBon [facility] Va Medical CenterAnion gap [Moles/Vol]10 mmol/L9 - 16 mmol/LBon [facility] HealthAST [Catalytic activity/Vol]34 U/L10 - 35 U/LBon [facility] Medical CenterBilirubin [Mass/Vol]0.4 mg/dL0.00 - 1.20 mg/dLBon [facility] Medical CenterCalcium [Mass/Vol]9.4 mg/dL8.6 - 10.4 mg/dLBon [facility] Chloride [Moles/Vol]103 mmol/L98 - 107 mmol/LBon [facility] HealthCO2 [Moles/Vol]25 mmol/L20 - 31 mmol/LBon [facility] Medical CenterCreatinine [Mass/Vol] 0.6 mg/dL0.50 - 0.90 mg/dLBon [facility] Va Medical CenterEst, Glom Filt Rate- PINFBon Togus Va Medical CenterOzarks Community Hospital on above: These results are not [...] secretion. Glucose [Mass/Vol]83 mg/dL74 - 99 mg/dLBon Holy Cross HospitalTravellutionInterpretation and review of laboratory resultsAbnoNorthern Navajo Medical CenterOneCardLewisGale Hospital PulaskiPotassium [Moles/Vol]4.6 mmol/L3.7 - 5.3 mmol/LBon [facility] Cross HospitalSosedi [facility] HospitalProtein [Mass/Vol] 7.8 g/dL6.6 - 8.7 g/dLBon Holy Cross HospitalSosedi [facility] Willard HospitalSodium [Moles/Vol]138 mmol/L136 - 145 mmol/LBon [facility] Cross HospitalTravellutionUrea nitrogen [Mass/Vol]13 mg/dL6 - 20 mg/dL [facility] SystemTravellutionUrea nitrogen/Creatinine [Mass ratio]22 mg/mgHigh9 - 20 [facility] HospitalOneCardLewisGale Hospital PulaskiLipid Panelon 05-20-2024 Cholesterol [Mass/Vol]152 mg/dL0 - 199 mg/dLBon Holy Cross HospitalTravellutionOzarks Community Hospital on above: Cholesterol Guidelines: <200 Desirable 200-240 Borderline >240 Undesirable Cholesterol in HDL [Mass/Vol]33 mg/dLLow40 - PINF mg/dLBon Holy Cross HospitalTravellution Comment on above: HDL Guidelines: <40 Undesirable 40-59 Borderline >59 Desirable Cholesterol in LDL [Mass/Vol]88 mg/dL0 - 100 mg/dLBon Holy Cross HospitalTravellution Comment on above: LDL Guidelines: <100 Desirable 100-129 Near to/above Desirable 130-159 Borderline >159 Undesirable Direct (measured) LDL and calculated LDL are not interchangeable tests. Cholesterol in VLDL [Mass/Vol]31 mg/dLBon Holy Cross HospitalTravellution Cholesterol.total/Cholesterol in HDL [Mass ratio]5.0 {ratio}[facility] TrackerSphereInterpretation and review of laboratory resultsAbnoNorthern Navajo Medical CenterOneCard LoomTriglyceride [Mass/Vol]156 mg/dLHighNINF - 150 mg/dLBon [facility] on above: Triglyceride Guidelines: <150 Desirable 150-199 Borderline 200-499 High >499 Very high Based on AHA Guidelines for fasting triglyceride, April 2012. Bon [facility] Medical CenterLipid Profileon 65-33-1874Kezunawftgm [Mass/Vol]152 mg/dLNormal0-199Park[facility] HospitalCompaul [facility] on above:Result Comment: Cholesterol Guidelines: <200 Desirable 200-240 Borderline >240 UndesirablePerformed By: #### LIPR #### [facility] HospitalNot[facility] [employer] [employer] [address] [place] [address] Decorating Consultant: NATALIO Tavarezholesterol in HDL [Mass/Vol]33 mg/dLLow>40[facility] on above:Result Comment: HDL Guidelines: <40 Undesirable 40-59 Borderline >59 DesirablePerformed By: #### LIPR #### [facility] [employer] [address] [place] [address] [phone] Decorating Consultant: NATALIO Tavarezholesterol in LDL [Mass/Vol]88 mg/dLNormal0-100 [facility] HospitalComment on above:Result Comment: LDL Guidelines: <100 Desirable 100-129 Near to/above Desirable 130-159 Borderline >159 Undesirable Direct (measured) LDL and calculated LDL are not interchangeable tests.Performed By: #### LIPR #### [facility] [address] [place] [address] Decorating Consultant: NATALIO Tavarezholesterol in VLDL [Mass/Vol]31 mg/dLNormal [facility] on above:Performed By: #### LIPR #### [facility] [address] [place] [address] Decorating Consultant: Chance Tavarezstmilad.total/Cholesterol in HDL [Mass ratio]5.0 {ratio}NormalParkview Health Montpelier HospitalCompaul [facility] on above:Performed By: #### LIPR #### [facility] [address] [place] [address] [phone] Decorating Consultant: Osvaldo Santamaria MDTriglyceride [Mass/Vol]156 mg/dLHigh<150Park[facility] Health [facility]pelier HospitalComment on above:Result Comment: Triglyceride Guidelines: <150 Desirable 150-199 Borderline 200-499 High >499 Very high Based on AHA Guidelines for fasting triglyceride, April 2012.Performed By: #### LIPR #### [facility] [address] [place], [place] [phone] Decorating Consultant: Osvaldo Santamaria MDUS GALLBLADDER RUQon 63-84-4897LM GALLBLADDER RUQEXAMINATION: RIGHT UPPER QUADRANT ULTRASOUND 03/06/2024 [...] Signed by: Hernandez Stewart MD 03/06/24 Final resultNormalMetroHealth [facility] 48-67-0243Wsqduoarzoz distribution width (RBC) [Ratio]12.4 %Tucoey23.8-14.4Park[facility] Montpelier HospitalComment on above: Performed By: #### FEBC #### [facility] [address] [place], [place] [phone] Decorating Consultant: Osvaldo Santamaria MD #### CBC, CP #### [facility] [address] [place] [address] Decorating Consultant: Yelena Greco MDHematocrit (Bld) [Volume fraction]40.2 %Normal 36.3-47.1MSt. Charles HospitalCompaul [facility] on above:Performed By: #### FEBC #### [address] [address] Decorating Consultant: Osvaldo Santamaria MD #### CBC, CP #### [address] [place], [place] [phone] Decorating Consultant: Yelena Greco MDHemoglobin (Bld) [Mass/Vol]13.5 g/dLNormal 11.9-15.1Msumma health wadsworth - rittman medical centery Bridgeport HospitalComment on above:Performed By: #### FEBC #### [address] [address] Decorating Consultant: Osvaldo Santamaria MD #### CBC, CP #### [address] [place] [phone] Decorating Consultant: YULY ArandaCH (RBC) [Entitic mass]29.8 huVchbmk52.2-33.5 [facility] HospitalComment on above:Performed By: #### FEBC #### [address] [address] Decorating Consultant: Osvaldo Santamaria MD #### CBC, CP #### [address] [place] [address] Decorating Consultant: YULY ArandaCHC (RBC) [Mass/Vol]33.6 g/vGKuaegv22.4-34.8Park[facility] HospitalComment on above:Performed By: #### FEBC #### [address] [address] Decorating Consultant: Osvaldo Santamaria MD #### CBC, CP #### [address] [place] [address] Decorating Consultant: YULY ArandaCV (RBC) [Entitic vol]88.7 hXQwahyo75.6-102.9 [facility] HospitalComment on above:Performed By: #### FEBC #### [place] [address] [place] [address] Decorating Consultant: Osvaldo Santamaria MD #### CBC, CP #### [address] [place], [place] [phone] Decorating Consultant: Yelena Greco MDNRBC Automated0.0 per 100 WBCNormal0.0[facility] on above:Performed By: #### FEBC #### [address] [address] Decorating Consultant: Osvaldo Santamaria MD #### CBC, CP #### [address] [place] [address] Decorating Consultant: Sobeida Aranda mean volume (Bld) [Entitic vol]8.5 fL Normal8.1-13.5Park[facility] HospitalComment on above:Performed By: #### FEBC #### [address] [address] Decorating Consultant: Osvaldo Santamaria MD #### CBC, CP #### [address] [place] [address] Decorating Consultant: ROLANDO Arandalatelets (Bld) [#/Vol]309 10*3/sAGuyeuf193-702 [facility] HospitalCompaul [facility] on above:Performed By: #### FEBC #### [address] [address] Decorating Consultant: Osvaldo Santamaria MD #### CBC, CP #### [address] [place] [address] Decorating Consultant: Yelena Greco MDRBC (Bld) [#/Vol]4.53 10*6/uLNormal3.95-5.11[facility] HospitalCompaul [facility] on above:Performed By: #### FEBC #### [address] [place] [address] Decorating Consultant: Osvaldo Santamaria MD #### CBC, CP #### [address] [place] [address] Decorating Consultant: Yelena Greco MDWBC (Bld) [#/Vol]6.5 10*3/uLNormal3.5-11.3MSt. Charles HospitalComment on above:Performed By: #### FEBC #### [address] [place] [address] Decorating Consultant: Osvaldo Santamaria MD #### CBC, CP #### [address] [place], [place] [phone] Decorating Consultant: Yelena Greco MDComp Metabolic Profon 97-38-3838Mnaymsf [Mass/Vol] 4.5 g/dLNormal3.5-5.2MSt. Charles HospitalComment on above:Performed By: #### FEBC #### [address] [place] [address] Decorating Consultant: Osvaldo Santamaria MD #### CBC, CP #### [address] [place] [address] Decorating Consultant: Yelena Greco MDAlbumin/Glob Ratio1.7Wmnmrb6.0-2.5Park[facility] HospitalComment on above:Performed By: #### FEBC #### [address] [place] [address] Decorating Consultant: Osvaldo Santamaria MD #### CBC, CP #### [address] [place], [place] 5534183 Decorating Consultant: Nas Arandakaline Phos74 U/YWevhmr84-414XixebParkview Health Montpelier HospitalComment on above:Performed By: #### FEBC #### [address] [address] Decorating Consultant: Osvaldo Santamaria MD #### CBC, CP #### [address] [place] [address] Decorating Consultant: Yelena Greco MDALT [Catalytic activity/Vol]61 U/LHigh5-33MerNatchaug HospitalComment on above:Performed By: #### FEBC #### [address] [address] Decorating Consultant: Osvaldo Santamaria MD #### CBC, CP #### [address] [place], [place] [phone] Decorating Consultant: Yelena Greco MDAnion gap [Moles/Vol]8 mmol/LLow9-17[facility] HospitalComment on above:Performed By: #### FEBC #### [address] [address] Decorating Consultant: Osvaldo Santamaria MD #### CBC, CP #### [address] [place], [place] [phone] Decorating Consultant: Yelena Greco MDAST [Catalytic activity/Vol]43 U/LHigh<32Brecksville Va / Crille Hospitalcy Bridgeport HospitalComment on above:Performed By: #### FEBC #### [address] [address] Decorating Consultant: Osvaldo Santamaria MD #### CBC, CP #### [address] [place], [place] 2435483 Decorating Consultant: Yelena Greco MDBilirubin [Mass/Vol]0.2 mg/dLLow0.3-1.2[facility] [place] HospitalComment on above:Performed By: #### FEBC #### [address] [address] Decorating Consultant: Osvaldo Santamaria MD #### CBC, CP #### [address] [place], [place] 1346683 Decorating Consultant: Yleena Greco MDBUN/CRE Ndueh61Csygrv9-37Nnvjl [facility] Comment on above:Performed By: #### FEBC #### [address] [address] Decorating Consultant: Osvaldo Santamaria MD #### CBC, CP #### [facility] [address] [place] [address] [place] [address] Decorating Consultant: Yelena Greco MDCalcium [Mass/Vol]9.4 mg/dLNormal8.6-10.4[facility] HospitalComment on above:Performed By: #### FEBC #### [address] [address] Decorating Consultant: Osvaldo Santamaria MD #### CBC, CP #### [address] [place], [place] 0934583 Decorating Consultant: NATALIO Arandahloride [Moles/Vol]100 mmol/TMbrquo47-755OszkoParkview Health Montpelier HospitalComment on above:Performed By: #### FEBC #### [address] [address] Decorating Consultant: Osvaldo Santamaria MD #### CBC, CP #### [address] [place], [place] 5142983 Decorating Consultant: Yelena Greco MDCO2 [Moles/Vol]28 mmol/DYprezv50-89VihcmParkview Health Montpelier HospitalComment on above:Performed By: #### FEBC #### [address] [address] Decorating Consultant: Osvaldo Santamaria MD #### CBC, CP #### [address] [place], [place] 7447083 Decorating Consultant: NATALIO Arandareatinine [Mass/Vol]0.6 mg/dLNormal0.5-0.9[facility] HospitalComment on above:Performed By: #### FEBC #### [address] [address] Decorating Consultant: Osvaldo Santamaria MD #### JERAMIE, CP #### [address] [place], [place] 0535683 Decorating Consultant: Yelena Greco MDGFR/1.73 sq M.predicted among non-blacks MDRD (S/P/Bld) [Vol rate/Area]mL/min/{1.73_m2}Normal>60[facility] HospitalComment on above:Result Comment: These results are [...] renal tubular secretion.Performed By: #### FEBC #### [address] [address] Decorating Consultant: Osvaldo Santamaria MD #### JERAMIE, CP #### [address] [place], [place] 3528083 Decorating Consultant: Yelena Greco MDGlucose [Mass/Vol]91 mg/vGFbinmw40-22YzehbSt. Charles HospitalComment on above:Performed By: #### FEBC #### [address] [address] Decorating Consultant: Osvaldo Santamaria MD #### CBC, CP #### [address] [place] [address] Decorating Consultant: ROLANDO Arandaotassium [Moles/Vol]4.2 mmol/LNormal3.7-5.3Msumma health wadsworth - rittman medical centery [place] HospitalComment on above:Performed By: #### FEBC #### [address] [address] Decorating Consultant: Osvaldo Santamaria MD #### CBC, CP #### [address] [place] [address]451 ( Decorating Consultant: ROLANDO Arandarotein [Mass/Vol]7.6 g/dLNormal6.4-8.3[facility] [place] HospitalComment on above:Performed By: #### FEBC #### [address] [address] Decorating Consultant: Osvaldo Santamaria MD #### CBC, CP #### [address] [place] [address]88 ( Decorating Consultant: KARLIE Arandaodium [Moles/Vol]136 mmol/FPsetia198-327Engoi Tiffin HospitalComment on above:Performed By: #### FEBC #### [address] [address] Decorating Consultant: Osvaldo Santamaria MD #### CBC, CP #### [address] [place] [address] ( Decorating Consultant: Yelena Greco MDUrea nitrogen [Mass/Vol]12 mg/dLNormal6-20[facility] HospitalComment on above:Performed By: #### FEBC #### [address] [address] Decorating Consultant: Osvaldo Santamaria MD #### CBC, CP #### [address] [place] [address]21 ( Decorating Consultant: Yelena Greco MDIron Binding Cap.on 02-16-2024% Fe Hdcisvfyoq67 % Doobqz44-94Akmqw [place] HospitalComment on above:Performed By: #### FEBC #### [facility] [address] [place] [address] Decorating Consultant: Osvaldo Santamaria MD #### CBC, CP #### [address] [place], [place] 7199383 Decorating Consultant: Yelena Greco MDIron [Mass/Vol]92 ug/wEYdvvnh91-082RlhjcParkview Health Montpelier HospitalComment on above:Performed By: #### FEBC #### [address] [place] [address] Decorating Consultant: Osvaldo Santamaria MD #### CBC, CP #### [address] [place], [place] 2436383 Decorating Consultant: Yelena Greco MDTotal Fe Binding Sqq930 ug/oGWqtbjj291-735AsdzhParkview Health Montpelier HospitalComment on above:Performed By: #### FEBC #### [address] [address] Decorating Consultant: Osvaldo Santamaria MD #### CBC, CP #### [address] [place], [place] 3713483 Decorating Consultant: Yelena Greco MDUnbound Fe Bind Sew547 ug/wHTdbicf784-708PvoyzParkview Health Montpelier HospitalComment on above:Performed By: #### FEBC #### [facility] [address] [place] [address] Decorating Consultant: Osvaldo Santamaria MD #### CBC, CP #### [address] [place], [place] 8013983 Decorating Consultant: Yelena Greco MDLipid Profileon 47-74-5505Sjtzieexkhy [Mass/Vol] 245 mg/dLHigh0-199[facility] HospitalComment on above:Result Comment: Cholesterol Guidelines: <200 Desirable 200-240 Borderline >240 UndesirablePerformed By: #### LIPR #### [facility] [employer] [address] [place] [address] Decorating Consultant: Osvaldo Santamaria MDCholesterol in HDL [Mass/Vol]34 mg/dLLow>40[facility] HospitalComment on above:Result Comment: HDL Guidelines: <40 Undesirable 40-59 Borderline >59 DesirablePerformed By: #### LIPR #### [facility] [employer] [address] [place] [address] Decorating Consultant: NATALIO Tavarezholesterol in LDL [Mass/Vol]159 mg/dLHigh0-100 [facility] HospitalCompaul [facility] on above:Result Comment: LDL Guidelines: <100 Desirable 100-129 Near to/above Desirable 130-159 Borderline >159 Undesirable Direct (measured) LDL and calculated LDL are not interchangeable tests.Performed By: #### LIPR #### [facility] [employer] [address] [place] [address] Decorating Consultant: NATALIO Tavarezholesterol in VLDL [Mass/Vol]52 mg/dLNormal [facility] HospitalCompaul [facility] on above:Performed By: #### LIPR #### [facility] [employer] [address] [place] [address] Decorating Consultant: Chance Tavarezstmilad.total/Cholesterol in HDL [Mass ratio]7.0 {ratio}NormalParkview Health Montpelier HospitalCompaul [facility] on above:Performed By: #### LIPR #### [facility] HospitalNotch W[facility] [employer] [address] [place] [address] Decorating Consultant: Osvaldo Santamaria MDTriglyceride [Mass/Vol]259 mg/dLHigh<150Brecksville Va / Crille Hospitalcy Bridge[facility] HospitalCompaul [facility] on above:Result Comment: Triglyceride Guidelines: <150 Desirable 150-199 Borderline 200-499 High >499 Very high Based on AHA Guidelines for fasting triglyceride, April 2012.Performed By: #### LIPR #### [facility] [employer] [address] [place] [address] Decorating Consultant: Osvaldo Santamaria MDOffice Visiton 03-43-1417Qkjsbl-up visit [id number] Vinny Downey 2000 F Date Provider Department Center 07/11/2023 RAJENDRA GUNN SAM[facility] Family History Problem Relation Age of Onset Anemia Mother Supraventricular tachycardia Father Hyperlipidemia Father Diabetes Sister Family Status - Relation Status Age at Mother Father Sister Level of Service:36015 MT OFFICE/OUTPATIENT NEW MODERATE MDM 45 MINUTESNormal [facility] CenterOffice Visiton 44-18-2901Ycibyd-up visit [id number] Vinny Downey 2000 F Date Provider Department Center [facility] Family History Problem Relation Age of Onset Anemia Mother Supraventricular tachycardia Father Hyperlipidemia Father Diabetes Sister Family Status - Relation Status Age at Mother Father Sister Level of Service:37980 MT OFFICE/OUTPATIENT NEW LOW MDM 30-44 MINUTESNormal [facility] CenterUS PREG BIOPHY W NON STRESSon 15-80-0001ZK PREG BIOPHY W NON STRESSEXAMINATION: US PREG [...] Electronically authenticated by: YELENA CARLOS Date: 2022-12-20 07:03[facility] PREG PLACENTAon [id number] PREG PLACENTAEXAMINATION: US PREG PLACENTA HISTORY: Left [...] authenticated by: LUIS ALFREDO GRANT Date: 2022-12-12 14:56[facility]US P[facility] BIOPHY W NON STRESSon [id number] PREG BIOPHY W NON STRESSEXAMINATION: US PREG [...] authenticated by: LUIS ALFREDO GRANT Date: 2022-12-11 04:08[facility] PREG GROWTHon [id number] PREG GROWTHEXAMINATION: US PREG GROWTH HISTORY: High [...] authenticated by: LUIS ALFREDO GRANT Date: 2022-12-11 04:06[facility] HospitalGTT 3 HR PREGon 48-31-9601Loebbkf [Mass/Vol]98 mg/dLNormal 74-106Kindred HealthcareComment on above:Performed By: #### GTT3P #### [facility] [address] [place] [address] Dr. Emilee SpringerGlucose [Mass/Vol]170 mg/dLNoGrant HospitalComment on above:Performed By: #### GTT3P #### [facility] [address] [place] [address] Dr. Emilee SpringerGlucose [Mass/Vol]201 mg/dLNoGrant HospitalComment on above:Performed By: #### GTT3P #### [facility] [address] [place] [address] Dr. Emilee SpringerGlucose [Mass/Vol]115 mg/dLNoGrant HospitalComment on above:Performed By: #### GTT3P #### [facility] [address] [place] [address] Dr. Emilee Mcconnell PREG INCOMPLETE ANATOMYon 56-68-8214FM PREG INCOMPLETE ANATOMY EXAM: US PREG INCOMPLETE ANATOMY HISTORY: screening COMPARISON: 09/10/2022 TECHNIQUE: Transabdominal FINDINGS: position: Transverse, head to the maternal right Heart rate: 157 bpm Normal observed anatomy: Nose/lips, four-chamber heart, left ventricular outflow tract, right ventricular outflow tract, spine IMPRESSION: Normal observed anatomy Electronically authenticated by: YELENA CARLOS Date: 2022-10-16 08:[address] [place] [address] AUTO DIFFon [id number] #0.0 103/ulNormal0.0-0.1[facility] HospitalComment on above:Performed By: #### CBC #### [facility] [address] [place] [address] Dr. Emilee SpringerBasophils/100 WBC (Bld)0.2 %Normal0.2-2.0[facility] Comment on above:Performed By: #### CBC #### [facility] [place] [facility] [address] [place] [address] Dr. Emilee Weldon #0.1 103/ulNormal0.0-0.7The [facility] [place] [facility] HospitalComment on above: Performed By: #### CBC #### [facility] [place] [facility] [address] [address] [address] Emilee Cintronosinophils/100 WBC (Bld)0.8 %Critically low0.9-7.0The [facility] on above:Performed By: #### CBC #### [facility] [place] [facility] [address] [place] [address] Dr. Emilee Cintronrythrocyte distribution width (RBC) [Ratio]12.5 %Bumwya44.0-15.0 The [facility] [place] [facility] HospitalComment on above:Performed By: #### CBC #### [facility] [place] [facility] [address] [place] [address] Dr. Emilee SpringerHematocrit (Bld) [Volume fraction]29.8 %Critically low36.0-48.0 [facility] on above:Performed By: #### CBC #### [facility] [place] [facility] [address] [place] [address] Dr. Emilee SpringerHemoglobin (Bld) [Mass/Vol]10.0 g/dLCritically low12.0-16.0The [facility] on above:Performed By: #### CBC #### [facility] [place] [facility] [address] [place] [address] Dr. Emilee Van #0.05 10e3/ulCritically high0.00-0.03The [facility] [place] [facility] Comment on above:Performed By: #### CBC #### [facility] [place] [facility] [address] [place] [address] Dr. Emilee Van %0.5 %Normal0.0-0.5The [facility] on above: Performed By: #### CBC #### [facility] [place] [facility] [address] [place] [address] Dr. Emilee ReesH #1.6 103/ulNormal1.2-3.8The [facility] on above:Performed By: #### CBC #### [facility] [place] [facility] [address] [place] [address] Dr. Emilee Espinozamphocytes/100 WBC (Bld)15.3 %Critically low20.5-60.0The [facility] on above:Performed By: #### CBC #### [facility] [place] [facility] [address] [address] [address] Emilee Esuqivel DIFF REQNONormalThe [facility] [place] [facility] HospitalComment on above: Performed By: #### CBC #### [facility] [place] [facility] [address] [place] [address] Dr. Emilee Guevara (RBC) [Entitic mass]30.2 tjZqjiow59.7-34.0The [facility] [place] [facility] HospitalComment on above:Performed By: #### CBC #### [facility] [place] [facility] [address] [place] [address] Dr. Emilee Guevara (RBC) [Mass/Vol]33.6 g/zZPqceur54.9-35.2The [facility] [place] [facility] HospitalComment on above:Performed By: #### CBC #### [facility] [place] [facility] [address] [place] [address] Dr. Emilee Guevara (RBC) [Entitic vol]90.0 dITjsfqv89.0-99.0The [facility] [place] [facility] HospitalComment on above:Performed By: #### CBC #### [facility] [place] [facility] [address] [place] [address] Dr. Emilee Banegas #0.6 103/ulNormal0.3-0.8The [facility] [place] [facility] HospitalComment on above:Performed By: #### CBC #### [facility] [place] [facility] [address] [place] [address] Dr. Emilee Hightowerocytes/100 WBC (Bld)5.8 %Normal1.7-12.0[facility] Comment on above:Performed By: #### CBC #### [facility] [place] [facility] [address] [place] [address] Dr. Emilee Fernandez #8.2 103/ulCritically high1.4-6.5The [facility] [place] [facility] Comment on above:Performed By: #### CBC #### [facility] [place] [facility] [address] [place] [address] Dr. Emilee Meeksutrophils/100 WBC (Bld)77.4 %Critically high43.0-75.0The [facility] [place] [facility] HospitalComment on above:Performed By: #### CBC #### [facility] [place] [facility] [address] [address] [address] Emilee Olmedolet mean volume (Bld) [Entitic vol]8.5 fLCritically low 9.5-13.5The [facility] [place] [facility] HospitalComment on above:Performed By: #### CBC #### [facility] [place] [facility] [address] [place] [address] Dr. Emilee SpringerPLT347 103/ozPismne814-258Mwb [facility] [place] [facility] HospitalComment on above: Performed By: #### CBC #### [facility] [place] [facility] [address] [place] [address] Dr. Emilee SpringerRBC3.31 106/ulCritically low4.20-5.40The [facility] [place] [facility] HospitalComment on above:Performed By: #### CBC #### [facility] [place] [facility] [address] [place] [address] Dr. Emilee SpringerWBC10.6 103/ulNormal4.0-11.0The [facility] [place] [facility] HospitalComment on above:Performed By: #### CBC #### [facility] [place] [facility] [address] [place] [address] Dr. Emilee SpringerGLUCOSE - 1HRon 41-98-5732Snmbfhi [Mass/Vol]176 mg/dLCritically jpqh74-979Rlp [facility] [place] [facility] HospitalComment on above:Performed By: #### GLU1HR #### [facility] [place] [facility] [address] [place] [address] Dr. Emilee SpringerCHLAMYDIA/GONOCOCCUS ANISA (SWAB/URINE/PAPon 71-26-7131Toxpkvawt trachomatis, NAANegativeNormalNegativeThe [facility] [place] [facility] HospitalComment on above: Performed By: #### CBC #### [facility] [place] [facility] [address] [place] [address] Dr. Emilee SpringerNeisseria gonorrhoeae, NAANegativeNormalNegativeThe [facility] [place] [facility] HospitalComment on above:Performed By: #### CBC #### [facility] [place] [facility] [address] [place] [address] Dr. Emilee SpringerVAGINITIS/VAGINOSIS DNA PROBEon 05-73-4380Garkcet speciesNegative NormalNegativeKindred HealthcareComment on above:Performed By: #### CBC #### [facility] [place] [facility] [address] [place] [address] Dr. Emilee Siegel vaginalisNegativeNormalNegativeKindred Healthcare Comment on above:Performed By: #### CBC #### [facility] [place] [facility] [address] [place] [address] Dr. Emilee Gonzalez vaginalisNegativeNormalNegativeKindred Healthcare Comment on above:Performed By: #### CBC #### [facility] [place] [facility] [address] [place] [address] Dr. Emilee SpringerUS PREG ANATOMY SINGLEon 04-08-3229GX PREG ANATOMY SINGLE EXAMINATION: US PREG ANATOMY [...] authenticated by: LUIS ALFREDO GRANT Date: 2022-09-13 16:57[facility] MATERNAL FOR SPINA BIFIDAon 03-91-7256RKK MoM0.42Lutheran HospitalComment on above:Performed By: #### AFPMAT #### [facility] [place] [facility] [address] [address] [address] Emilee Yoder Value16.7 ng/mLNCleveland Clinic Union HospitalComment on above: Performed By: #### AFPMAT #### [facility] [place] [facility] [address] [address] [address] Emilee Yoder, Serum for Spina BifidaReportLutheran Hospital Comment on above:Performed By: #### AFPMAT #### [facility] [place] [facility] [address] [address] [address] HospitalComment on above:Result Comment: Pam Machado, Ph.D., [facility] Director . References: Available Upon Request. . Multiples Of Median Cutoffs For AFP Elevations Berkowitz 2.5 Black 2.8 IDD 2.0 Twins 4.5 Abbreviation Definitions IDD - Insulin Dep Diabetes OSBR - Open Spina Bifida Risk . For further inquiries contact [employer] [facility] at [phone]. . This test was developed and its performance characteristics determined by [employer]. It has not been cleared or approved by the Food and Drug Administration.Performed By: #### AFPMAT #### [facility] [place] [facility] [address] [address] [address] Emilee Barrow Age Collection Date18.6 weeksLutheran Hospital Comment on above:Performed By: #### AFPMAT #### [facility] [place] [facility] [address] [address] [address] Emilee Vargas, Age Based onEDDLutheran HospitalComment on above:Result Comment: 01/26/2023 Recalculations are not recommended when gestational dating by LMP and ultrasound are within 10 days.Performed By: #### AFPMAT #### [facility] [place] [facility] [address] [place] [address] Dr. Emilee SpringerFall River Hospital on above:Result Comment: Not provided. .Performed By: #### AFPMAT #### [facility] [place] [facility] [address] [place] [address] Dr. Emilee SpringerC[facility] Clinic [facility] on above: Result Comment: Interpretation: Screen Negative [...] Customer Services to discuss available options. The [employer] recommends amniocentesis be offered to women age 35 and older.Performed By: #### AFPMAT #### [facility] [place] [facility] [address] [place] [address] Dr. Emilee Collazornakrista Age at EDD22.3 yrH[facility] on above:Performed By: #### AFPMAT #### [facility] [place] [facility] [address] [place] [address] Dr. Emilee DialOuachita County Medical CenterCompaul [facility] on above:Result Comment: Not provided. .Performed By: #### AFPMAT #### [facility] [place] [facility] [address] [place] [address] Dr. Emilee CanoBR Risk 1 [id number] HospitalCompaul [facility] hospital on above: Performed By: #### AFPMAT #### [facility] [place] [facility] [address] [place] [address] Dr. Emilee Galo.NormalKindred HealthcareCompaul [facility] memorial hospital on above:Performed By: #### AFPMAT #### [facility] [place] [facility] [address] [place] [address] Dr. Emilee FinnJ.W. [facility] on above:Result Comment: Not provided. .Performed By: #### AFPMAT #### [facility] [place] [facility] [address] [place] [address] Dr. Emilee SpringerTest Results:NegativeNormMedina Hospital on above: Performed By: #### AFPMAT #### [facility] [place] [facility] [address] [place] [address] Dr. Emilee Gonzalezbella antibody, IgGon 68-90-5485Rkmeeqx virus IgG Ql (S)314.5 IU/mLBON MARIETTA OSTEOPATHIC CLINICCompaul [facility] hospital on above: REFERENCE RANGE: <5.0 NON-REACTIVE (non-immune) 5.0 TO 9.9 EQUIVOCAL >=10.0 REACTIVE (immune) [facility] CLINICHE B SURFACE ANTIGEN SCREENon 13-22-1369ZWoHi Screen NegativeNormalNegativeThe [facility] on above:Performed By: #### HBSANS #### [facility] [place] [facility] [address] [place] [address] Dr. Emilee IsraelPATITIS C VIRUS AB W/ REFLEX QUANTon 62-39-4747LZX AB<0.1Normal 0.0-0.9The [facility] on above:Performed By: #### HCVPCRR #### [facility] [place] [facility] [address] [place] [address] Dr. Emilee SpringerInterpretation:CommentHarrison Community Hospital on above:Result Comment: Negative Not infected with HCV, unless recent infection is suspected or other evidence exists to indicate HCV infection.Performed By: #### HCVPCRR #### [facility] [place] [facility] [address] [place] [address] Dr. Emilee SpringerHIV 1 AND 2 WITH REFLEXon 70-89-6958YHP Screen 4th Generation wRfxNon-ReactiveNormalNon ReactiveThe [facility] on above:Result Comment: HIV Negative HIV-1/HIV-2 antibodies and HIV-1 p24 antigen were NOT detected. There is no laboratory evidence of HIV infection.Performed By: #### CBC #### [facility] [place] [facility] [address] [place] [address] Dr. Emilee SpringerRPR QUANTon 63-07-7321Kjhwu Plasma Reagin, QuantNon-Reactive NormalNonRea<1:1The [facility] [place] [facility] HospitalComment on above:Result Comment: Please Note: This test does not meet current guidelines for screening and diagnosis of syphilis. This test is intended for following treatment response in patients being treated for syphilis infection. To screen for syphilis infection, a reflex cascade that includes both RPR and a treponema-specific assay should be utilized, such as Treponema pallidum (Syphilis) Screening [place] (844939) or Rapid Plasma Reagin (RPR) Test With Reflex to Quantitative RPR and Confirmatory Treponema pallidum Antibodies (572794).Performed By: #### CBC #### [facility] [place] [facility] [address] [place] [address] Dr. Emilee Ramírez AB IGGon 22-63-2752Vtxjsts Antibodies, IgG5.03 index NormalImmune >0.99The [facility] [place] [facility] HospitalComment on above:Result Comment: Non- immune <0.90 Equivocal 0.90 - 0.99 Immune >0.99Performed By: #### RUBIGG #### [facility] [place] [facility] [address] [place] [address] Dr. Emilee Killian AUTO DIFFon 92-19-9244DBTX #0.0 103/ulNormal0.0-0.1Kindred HealthcareComment on above:Performed By: #### GLU1HR #### [facility] [place] [facility] [address] [place] [address] Dr. Emilee SpringerBasophils/100 WBC (Bld)0.2 %Normal0.2-2.0The [facility] [place] [facility] Comment on above:Performed By: #### GLU1HR #### [facility] [place] [facility] [address] [place] [address] Dr. Emilee Weldon #0.1 103/ulNormal0.0-0.7The [facility] [place] [facility] HospitalComment on above: Performed By: #### GLU1HR #### [facility] [place] [facility] [address] [place] [address] Dr. Emilee Cintronosinophils/100 WBC (Bld)0.9 %Normal0.9-7.0The [facility] [place] [facility] Comment on above:Performed By: #### GLU1HR #### [facility] [place] [facility] [address] [place] [address] Dr. Emilee Cintronrythrocyte distribution width (RBC) [Ratio]11.9 %Rayefg76.0-15.0 Kindred HealthcareComment on above:Performed By: #### GLU1HR #### [facility] [place] [facility] [address] [place] [address] Dr. Emilee SpringerHematocrit (Bld) [Volume fraction]32.9 %Critically low36.0-48.0 The [facility] [place] [facility] HospitalComment on above:Performed By: #### GLU1HR #### [facility] [place] [facility] [address] [place] [address] Dr. Emilee SpringerHemoglobin (Bld) [Mass/Vol]11.6 g/dLCritically low12.0-16.0The [facility] [place] [facility] HospitalComment on above:Performed By: #### GLU1HR #### [facility] [place] [facility] [address] [place] [address] Dr. Emilee Van #0.03 10e3/ulNormal0.00-0.03The [facility] [place] [facility] HospitalComment on above:Performed By: #### GLU1HR #### [facility] [place] [facility] [address] [place] [address] Dr. Emilee Van %0.3 %Normal0.0-0.5The [facility] [place] [facility] HospitalComment on above: Performed By: #### GLU1HR #### [facility] [place] [facility] [address] [place] [address] Dr. Emilee ReesH #2.1 103/ulNormal1.2-3.8The [facility] [place] [facility] HospitalComment on above:Performed By: #### GLU1HR #### [facility] [place] [facility] [address] [place] [address] Dr. Emilee Espinozamphocytes/100 WBC (Bld)20.2 %Critically low20.5-60.0The [facility] [place] [facility] HospitalComment on above:Performed By: #### GLU1HR #### [facility] [place] [facility] [address] [place] [address] Dr. Emilee Esquivel DIFF REQNONormalThe [facility] [place] [facility] HospitalComment on above: Performed By: #### GLU1HR #### [facility] [place] [facility] [address] [place] [address] Dr. Emilee Guevara (RBC) [Entitic mass]31.4 ycQpdprf01.7-34.0The [facility] [place] [facility] HospitalComment on above:Performed By: #### GLU1HR #### [facility] [place] [facility] [address] [place] [address] Dr. Emilee Guevara (RBC) [Mass/Vol]35.3 g/dLCritically high29.9-35.2The [facility] [place] [facility] HospitalComment on above:Performed By: #### GLU1HR #### [facility] [place] [facility] [address] [place] [address] Dr. Emilee Guevara (RBC) [Entitic vol]89.2 pTEwsmdn32.0-99.0The [facility] [place] [facility] HospitalComment on above:Performed By: #### GLU1HR #### [facility] [place] [facility] [address] [place] [address] Dr. Emilee Banegas #0.7 103/ulNormal0.3-0.8The [facility] [place] [facility] HospitalComment on above:Performed By: #### GLU1HR #### [facility] [place] [facility] [address] [place] [address] Dr. Emilee Hightowerocytes/100 WBC (Bld)7.0 %Normal1.7-12.0[facility] Comment on above:Performed By: #### GLU1HR #### [facility] [place] [facility] [address] [place] [address] Dr. Emilee Fernandez #7.5 103/ulCritically high1.4-6.5The [facility] [place] [facility] Comment on above:Performed By: #### GLU1HR #### [facility] [place] [facility] [address] [place] [address] Dr. Emilee Meeksutrophils/100 WBC (Bld)71.4 %Pvqrie76.0-75.0The [facility] [place] [facility] HospitalComment on above:Performed By: #### GLU1HR #### [facility] [place] [facility] [address] [place] [address] Dr. Emilee SpringerPlatelet mean volume (Bld) [Entitic vol]9.1 fLCritically low 9.5-13.5The [facility] [place] [facility] HospitalComment on above:Performed By: #### GLU1HR #### [facility] [place] [facility] [address] [place] [address] Dr. Emilee SpringerPLT311 103/oqOwqiox114-091Qff [facility] [place] [facility] HospitalComment on above: Performed By: #### GLU1HR #### [facility] [place] [facility] [address] [place] [address] Dr. Emilee SpringerRBC3.69 106/ulCritically low4.20-5.40The [facility] [place] [facility] HospitalCompaul [facility] hospital on above:Performed By: #### GLU1HR #### [facility] [place] [facility] [address] [place] [address] Dr. Emilee SpringerWBC10.5 103/ulNormal4.0-11.0The [facility] [place] [facility] HospitalComment on above:Performed By: #### GLU1HR #### [facility] [place] [facility] [address] [place] [address] Dr. Emilee SpringerCULTDENZEL URINEon 40-47-1592KJEEOLO URINECulture Observations: LIGHT GROWTH OF MIXED GENITAL BREN. NO POTENTIAL PATHOGENS SEEN.NormalThe [facility] [place] [facility] HospitalCompaul [facility] hospital on above:Performed By: #### GLU1HR #### [facility] [place] [facility] [address] [place] [address] Dr. Emilee SpringerGLYCOHEMOGLOBIN A1Con 95-44-9409MUY RECOMMENDATIONSEE BELOWNormmn The [facility] [place] [facility] HospitalCompaul [facility] on above:Result Comment: ADA RECOMMENDED LIMIT 4.0 - 6.0 ADA THERAPEUTIC TARGET < 7.0 ACTION SUGGESTED > 7.0Performed By: #### A1C #### [facility] [place] [facility] [address] [place] [address] Dr. Emilee SpringerGlucose [Mass/Vol]108 mg/dLNormalThe [facility] [place] [facility] HospitalComment on above:Performed By: #### A1C #### [facility] [place] [facility] [address] [place] [address] Dr. Emilee SpringerHbA1c (Bld) [Mass fraction]5.4 %Normal4.5-6.2The [facility] [place] [facility] HospitalComment on above:Performed By: #### A1C #### [facility] [place] [facility] [address] [place] [address] Dr. Emilee SpringerNATERA BOX TEST PT SEND OUTon [id number] TO REF LAB07/04/2022 NormalThe [facility] [place] [facility] HospitalComment on above:Performed By: #### NBOX #### [facility] [place] [facility] [address] [place] [address] Dr. Emilee SpringerTYPE AND SCREENon 45-05-1839MOPU AND SCREENNegativeLutheran HospitalComment on above:Performed By: #### GLU1HR #### [facility] [place] [facility] [address] [place] [address] Dr. Emilee SpringerUS PREG TVon 38-43-4625ML PREG TVEXAMINATION: US PREG TV HISTORY: test [...] Electronically authenticated by: YELENA CARLOS Date: 2022-06-23 17:00NoGrant HospitalHCG, Quantitative, Pregnancyon 48-42-0974gRK [id number] [facility] CENTERComment on above: Non-preg premeno <=5 Postmeno <=8 Male <=3 If HCG results do not concur with clinical observations, additional testing to confirm results is recommended. Interpretation and review of laboratory resultsAbPioneer Memorial Hospital and Health Services ACOG PANEL 2: 21 to 29on 04-24-2022..NormalThe [facility] [place] [facility] HospitalComment on above:Performed By: #### [id number] #### [facility] [place] [facility] [address] [place] [address] Dr. Emilee SpringerAge Gdln ACOG Jkqnryx15-23CcbusuFmbWilson Memorial Hospital on above:Performed By: #### [id number] #### [facility] [place] [facility] [address] [place] [address] Dr. Emilee SpringerDIAGNOSIS:CommentHarrison Community Hospital on above: Result Comment: NEGATIVE FOR INTRAEPITHELIAL LESION OR MALIGNANCY. CELLULAR CHANGES ASSOCIATED WITH INFLAMMATION ARE PRESENT.Performed By: #### [id number] #### [facility] [place] [facility] [address] [place] [address] Dr. Emilee SpringerMethodology:CommentHarrison Community Hospital on above: Result Comment: This liquid based ThinPrep(R) pap test was screened with the use of an image guided system.Performed By: #### [id number] #### [address] [place] [address] [address] Emilee SpringerNote:CommentHarrison Community Hospital on above:Result Comment: The Pap smear is a screening test designed to aid in the detection of premalignant and malignant conditions of the uterine cervix. It is not a diagnostic procedure and should not be used as the sole means of detecting cervical cancer. Both false-positive and false-negative reports do occur. .Performed By: #### [id number] #### [facility] [place] [facility] [address] [place] [address] Dr. Emilee SpringerPerformed by:CommentHarrison Community Hospital on above: Result Comment: Mary Lou Adams CytotechnologistPerformed By: #### [id number] #### [facility] [place] [facility] [address] [place] [address] Dr. Emilee SpringerReflex Criteria:CommentHarrison Community Hospital on above:Result Comment: The HPV DNA reflex criteria were not met with this specimen result therefore, no HPV testing was performed. .Performed By: #### [id number] #### [facility] [address] [place] [address] Dr. Emilee SpringerSpecimen adequacy:CommentNormalThe Heri HospitalComment on above:Result Comment: Satisfactory for evaluation. Endocervical and/or squamous metaplastic cells (endocervical component) are present.Performed By: #### [id number] #### [facility] [place] [facility] [address] [place], [place] [address] Dr. Emilee Santoro, Quantitative, Pregnancyon 13-20-5685wBZ Nyjhj93Odom<5 IU/L [facility] HospitalSuperflyCompaul [facility] on above: Non-preg premeno <=5 Postmeno <=8 Male <=3 If HCG results do not concur with clinical observations, additional testing to confirm results is recommended. Elevated results not associated with may be found in patients with other diseases such as tumors of the germ cells (testis, ovaries, etc.), bladder, pancreas, stomach, lungs, and liver. Interpretation and review of laboratory resultsAbnoAurora Sinai Medical Center– [place] RENAL COMPLETEOrdered By: Lorena Ricks on 96-89-9041Fcomkswhtzez ultrasound of the kidneys and urinary bladder.[employer] Phone: eXAMINATION: RETROPERITONEAL ULTRASOUND OF THE KIDNEYS AND URINARY BLADDER 11/25/2020 COMPARISON: None HISTORY: ORDERING SYSTEM PROVIDED HISTORY: Frequent UTI TECHNOLOGIST PROVIDED HISTORY: This procedure can be scheduled via [employer]. Access your [employer] account by visiting [employer]. FINDINGS: Kidneys: The right kidney measures 11.1 cm in length and the left kidney measures 11.6 cm in length. Kidneys demonstrate normal cortical echogenicity. No evidence of hydronephrosis or intrarenal stones. Bladder: Unremarkable appearance of the bladder. No significant post void residual.[employer] Phone: e, [facility] Incoming Radiant Results From [employer] - 11/25/2020 3:59 PM EDT EXAMINATION: RETROPERITONEAL ULTRASOUND OF THE KIDNEYS AND URINARY BLADDER 11/25/2020 COMPARISON: None HISTORY: ORDERING SYSTEM PROVIDED HISTORY: Frequent UTI TECHNOLOGIST PROVIDED HISTORY: This procedure can be scheduled via [employer]. Access your [employer] account by visiting [employer]. FINDINGS: Kidneys: The right kidney measures 11.1 cm in length and the left kidney measures 11.6 cm in length. Kidneys demonstrate normal cortical echogenicity. No evidence of hydronephrosis or intrarenal stones. Bladder: Unremarkable appearance of the bladder. No significant post void residual. IMPRESSION: Unremarkable ultrasound of the kidneys and urinary bladder. [employer] Work Phone: [employer] [phone] [id number]#1.00CD:127NoSt. Anthony's HospitalAmbulatory Clinical Summaryon [id number] Clinical Summary {52-dr-sw-hs-pd-[id number]-[id number]-16-ce-86}CD:[id number]. Charles HospitalGeneral Surgery Office/Clinic Noteon 20-42-5093Rteggyq Surgery Office/Clinic NoteChief Complaint post operative follow up HPI Staff 8 day post operative follow up post lap appendectomy completed while in-patient at [facility]. Doing well. Minimal discomfort. Taking Ibuprofen [...] available Patient Education Exercise to Lose Weight, Lngg-xi-Skas Problem List/Past Medical History Ongoing Acute appendicitis [...] Use:., 10/13/2020 Family History Family history is negativeSt. Charles HospitalComment on above: Result Comment: Electronically Signed By: LATANYA MCKENNA, Sushant Babb\Date and Time Signed: 10/13/20 13:39 EDTPatient Educationon 50-82-2614Rwbzjzt Education Exercise to Lose Weight Exercise and [...] Document Reviewed: 08/12/2011 ExitCare? Patient Information ?[address] [facility] HospitalProvider Letter FTon 16-44-3105Nqlybmkq Letter [facility] October 13, 2020 VINNY VERMA [address] [facility] [address] [place] [address] VINNY VERMA 2000 To Whom It May Concern, Please excuse above patient from work 10/14/20. Sincerely, Dr. Sushant Lott MD General SurgeryNormAdena Regional Medical CenterPathology Noteon 10-08-2020 Pathology [id number]#1.00CD:127[facility] HospitalFacesheeton 87-78-6351Okcaymvvv [id number]#1.00CD:[address] [place], [place] [address]Operative Reporton 09-12-1129Ybgwbzusi Report [id number]#1.00CD:[address] [place], [place] [address]HIV Screenon 77-86-1181IGB Ag/AbNONREACTIVENONREACTIVEMer Health- [place], [place] Comment on above:No laboratory evidence of HIV infection. If acute HIV infection is suspected, consider testing for HIV-1 RNA. Basic Metabolic Panelon 50-10-6682Dubgc gap [Moles/Vol]11 mmol/L9 - 17 mmol/L [facility]- [place], KYBun/Cre Mxdub49Xfmyy [facility]- [place], KYCalcium [Mass/Vol]9.3 mg/dL8.6 - 10.4 [...] mg/dL6 - 20 mg/dLMercy Health- [place], KYCBCon 01-71-1402Zteodmkfvue distribution width (RBC) [Ratio]11.7 %Low11.8 - 14.4 %[place], [place] Hematocrit (Bld) [Volume fraction]36.4 %36.3 - 47.1 %[place] Hemoglobin (Bld) [Mass/Vol]12.2 g/dL11.9 - 15.1 g/dLM[place], [place] Interpretation and review of laboratory resultsAbnormalAultman Orrville HospitalH (RBC) [Entitic mass]31.4 pg25.2 - 33.5 pgMeredith, KYMCHC (RBC) [Mass/Vol]33.5 g/dL28.4 - 34.8 g/dLM[place], KYMCV (RBC) [Entitic vol] 93.8 fL82.6 - 102.9 fLMeredith, KYPlatelet mean volume (Bld) [Entitic vol]9.2 fL8.1 - 13.5 fLMeredith, KYPlatelets (Bld) [#/Vol]307 10*3/uL [place], KYRBC (Bld) [#/Vol]3.88 10*6/uLLow3.95 - 5.11 m/[place], KYWBC (Bld) [#/Vol]7.2 10*3/uLMeredith, KYWBC (Bld) [#/Vol] 0.0 10*3/uL0.0 per 100 WBCMeredith, KYMetabolic Panelon 05-04-2020 GFR/1.73 sq M predicted among non-blacks MDRD (S/P/Bld) [Vol rate/Area][place], KYComment on above:Stage 1: Some kidney damage [...] body mass. Additional eGFR calculator available at: http://www.Dermal Life.ActiveEon/multiple_crcl_2012.htm Roxie 35-23-3826TIP Qn2.22 m[IU]/[facility]- [place], [place] Vital Signs Date TimeVital SignValuePerforming ZrmnxwwhxZhyuppac45-00-2538 13:22-0500Body mass index (BMI) [Ratio]38.38 kg/k4Hpyry Law DO Work Phone: [phone] [place], [place] [address]Phzcrdizmc25-32-9435 13:22-0500Body zcedvh380.86 kgCorey Law DO Work Phone: [phone] [place], [place] [address]Jkbensaodd54-26-4420 13:22-0500Diastolic blood idkswhev38 mm[Hg]Mukul Law DO Work Phone: [phone] [place], [place] [address]Mwnywininx02-98-1213 13:22-0500Systolic blood dntzvaly349 mm[Hg]Mukul Law DO Work Phone: [phone])[facility] [place], [place] [address]Gmabyjwaiw26-80-1436 14:52-0500Body mass index (BMI) [Ratio]38.38 kg/m2Amy Oralia PA Work Phone: [phone] [place], [place] [address]Zhepqvprls91-47-8370 14:52-0500Body fanwot403.86 kgAmy Oralia PA Work Phone: [phone] [facility] CenterCuwdtgxrfc87-50-8651 14:52-0500Diastolic blood fqjdyypl17 mm[Hg]Rgeina Barton PA Work Phone: [phone] [place], [place] [address]Ixptirpjnb40-48-2695 14:52-0500Systolic blood yefgfdej420 mm[Hg]Regina Caiey PA Work Phone: [phone]10-22-2025 15:05-0400Body mass index (BMI) [Ratio]37.47 kg/m9Xnypv Law DO Work Phone: [phone] [place], [place] [address]Cwnrjwvrsb57-96-8450 15:05-0400Body nezxfl689.29 kgCorey Law DO Work Phone: [phone] [place], [place] [address]Gwdolgznfc00-59-5685 15:05-0400Diastolic blood atklinso45 mm[Hg]Mukul Law DO Work Phone: [phone] [place], [place] [address]Jrumwypdyp10-35-3185 15:05-0400Systolic blood mxivfmjo121 mm[Hg]Mukul Law DO Work Phone: [phone] [place], [place] [address]Crquqbpbsl53-03-5421 15:11-0400Body mass index (BMI) [Ratio]36.7 kg/u3Egkqkhqq Guillermo [employer] Work Phone: [phone] [place], [place] [address]Uipizkluqr10-04-3013 15:11-0400Body .15 kgCeasar Millererly [employer] Work Phone: [phone] [place], [place] [address]Rkxucpqafk75-21-3516 15:11-0400Diastolic blood johbgknr17 mm[Hg]Ceasar Millererly [employer] Work Phone: [phone] [place], [place] [address]Aahnpkfjxs32-29-9052 15:11-0400Systolic blood mm[Hg]Ceasardaly Millererly [employer] Work Phone: [phone] [place], [place] [address]Ywqlrsaqfm01-44-0887 15:50-0400Body mass index (BMI) [Ratio]36.64 kg/m2Amy Aguanga PA Work Phone: [phone] [place], [place] [address]Gmedlmfhhw79-00-1366 15:50-0400Body ajvqfz709.97 kgAmy Aguanga PA Work Phone: [phone] [place], [place] [address]Nqgwvcyrkp76-36-4528 15:50-0400Diastolic blood mm[Hg]Regina Oralia PA Work Phone: [phone] [place] [address]-22-2025 15:50-0400Systolic blood mm[Hg]Regina Aguanga PA Work Phone: [phone] [place], [place] [address]Csxkxbmank40-75-7931 15:44-0400Body mass index (BMI) [Ratio]36.61 kg/m2Amy Aguanga PA Work Phone: [phone] [place], [place] [address]Tmcweajnlm76-37-4135 15:44-0400Body .88 kgAmy Aguanga PA Work Phone: [phone] [place] [address]-11-2025 15:44-0400Diastolic blood pjggufif35 mm[Hg]Regina RUIZ Work Phone: [facility] CenterTuxinjawpf32-33-0104 15:44-0400Systolic blood mgxdhjsa868 mm[Hg]Regina RUIZ Work Phone: [phone] [place], [place] [address]Zmgcirqdqx01-58-0295 16:08-0400Body mass index (BMI) [Ratio]36.12 kg/v3Nmquv Law DO Work Phone: [phone] [place], [place] [address]Vaxcwfuivn04-23-9089 16:08-0400Body bmfdaq502.52 kgCorey Law DO Work Phone: [phone] [place], [place] [address]Fqdvbtjocw46-75-2397 16:08-0400Diastolic blood kealkcen86 mm[Hg]Mukul Law DO Work Phone: [phone] [place], [place] [address]Qsdcwldvdh29-54-9568 16:08-0400Systolic blood kgyasefo597 mm[Hg]Mukul Law DO Work Phone: [phone] [place], [place] [address]Qojcvzusth21-04-9014 15:58-0400Body mass index (BMI) [Ratio]35.96 kg/l3Fykbr Law DO Work Phone: [phone])515-[address] [place], [place] [address]Uyflwueqhe23-26-1178 15:58-0400Body .06 kgCorey Law DO Work Phone: [facility] CenterXocywdbmeh45-44-3988 15:58-0400Diastolic blood pznbiwqh97 mm[Hg]Mukul Law DO Work Phone: [phone] [place], [place] [address]Mjhawcjalp63-43-6736 15:58-0400Systolic blood fxpsqqai547 mm[Hg]Mukul Law DO Work Phone: [phone] [place], [place] [address]Esemnnpsff29-83-4800 14:06-0400Body mass index (BMI) [Ratio]34.99 kg/a1Foggf Law DO Work Phone: [phone] [place], [place] [address]Eyscbgdidi80-74-5239 14:06-0400Body .34 kgCorey Law DO Work Phone: [phone] [place], [place] [address]Pmubrhdsjv85-82-8420 14:06-0400Diastolic blood mm[Hg]Mukul Law DO Work Phone: [phone] [place], [place] [address]Tksbponopm61-10-0659 14:06-0400Systolic blood ndejhglv561 mm[Hg]Mukul Law DO Work Phone: [phone])[facility] [place], [place] [address]Dmcljsfgwo68-16-0579 16:41-0400Body mass index (BMI) [Ratio]34.19 kg/g5Ogant Law DO Work Phone: [phone])[facility] [place], [place] [address]Kdkwacjjxe25-53-8221 16:41-0400Body okxquf51.07 kgCorey Law DO Work Phone: [phone])[facility] [place], [place] [address]Sfmuywzobx21-53-1541 16:41-0400Diastolic blood rrufywel52 mm[Hg]Mukul Law DO Work Phone: [phone] [place], [place] [address]Lyhierlxho15-68-9161 16:41-0400Systolic blood onjkvhqs771 mm[Hg]Mukul Law DO Work Phone: [phone])[address] [place], [place] [address]5-28-2025 16:15-0400Body mass index (BMI) [Ratio]34.22 kg/y4Craxx Law DO Work Phone: 1(059)[facility] [place], [place] [address]Jowukgsagb87-26-3884 16:15-0400Body dhytqm30.16 kgCorey Law DO Work Phone: 1(888)[facility] [place], [place] [address]Jxdvalrhzs64-42-4545 16:15-0400Diastolic blood mm[Hg]Mukul Law DO Work Phone: [phone])[address] [place], [place] [address]5-28-2025 16:15-0400Systolic blood srbtbour942 mm[Hg]Mukul Law DO Work Phone: [phone] [place], [place] [address]Zlozphysdb11-15-8069 15:15-0400Body mass index (BMI) [Ratio]33.57 kg/m2[facility]04-24-2025 15:15-0400Body drkjyd71.35 kgSaint [facility]04-24-2025 15:15-0400Diastolic blood ujuswvua33 mm[Hg][facility]04-24-2025 15:15-0400Systolic blood qxodmcfs845 mm[Hg][facility]12-23-2024 16:25-0500Body mass index (BMI) [Ratio]32.93 kg/j7Pxtsx Law DO Work Phone: [facility] CenterOqicnohcjp06-56-4906 16:25-0500Body istjzs88.53 kgCorey Law DO Work Phone: [facility] CenterSsvxzsgadt32-22-2330 03:06-0500Body jbuhfm69.8024 kgDR MUKUL FOY .[facility] HospitalComment on above:Performed By: #### AFPMAT #### [facility] [address] [place] [address] Dr. Emilee Springer Encounters Encounter DateEncounter TypeCare ProviderFacilityStart: 06-02-2025 End: 58-25-2397Ldyhmhpg flow sheetCorey Law DO Work Phone: noHampton Behavioral Health Centerue OBGYNComment on above:37 weeks gestation of ([facility]); Third trimester ([facility]); Insulin controlled gestational diabetes mellitus (GDM) during , antepartum ([facility]); Gestational diabetes mellitus (GDM), antepartum, gestational diabetes method of control unspecified([facility])Start: 06-02-2025 End: 47-20-2474gncpycycueVADSB FAZIONot AvailableStart: 05-29-2025 End: 51-83-6482Vyybbtbdo Result EncounterCorey Law DO Work Phone: noThatgamecompany External Department UnsolicitedStart: 05-29-2025 End: 00-50-2463Mitaplyqi Result EncounterCorey Law DO Work Phone: noms External Department UnsolicitedStart: 05-28-2025 End: 05-90-4860Ifarnkxp flow sheetRegina RUIZ Work Phone: noms Heri OBGYNComment on above:Third trimester ([facility]); 36 weeks gestation of ([facility])Start: 05-28-2025 End: 50-41-5624iudsnzysjnJVP ORALIAEfrain AvailableStart: 05-28-2025 End: 40-07-0219Bmnwmnulx Result EncounterAmy Oralia PA Work Phone: noms External Department UnsolicitedStart: 05-28-2025 End: 59-65-1535Vhkzsvliw Result EncounterRegina Caitisha RUIZ Work Phone: noms External Department UnsolicitedStart: 05-21-2025 End: 54-13-7800Ozhsrvrbi Result EncounterCorey Law DO Work Phone: noms External Department UnsolicitedStart: 05-21-2025 End: 25-63-3042Wuiwoioww Result EncounterCorey Law DO Work Phone: noms External Department UnsolicitedStart: 05-14-2025 End: 13-22-0002amjnbikqrwZEWJJ FAZIONot AvailableStart: 05-14-2025 End: 76-17-5180Xludwjxq flow sheetCorey Law DO Work Phone: NOEW [place] OBGYNComment on above:Third trimester ([facility] 34 weeks gestation of ([facility]); Insulin controlled gestational diabetes mellitus (GDM) during , antepartum ([facility]); Gestational diabetes mellitus (GDM), antepartum, gestational diabetes method of control unspecified([facility])Start: 05-14-2025 End: 56-57-1405Nedasj flowsheetCorey Law DO Work Phone: NOMS [place] OBGYNStart: 05-14-2025 End: 90-79-2872Sjpbee flowsheetCorey Law DO Work Phone: noMS [place] OBGYNStart: 05-14-2025 End: 24-15-2213Ytwswbous Result EncounterCorey Law DO Work Phone: noms External Department UnsolicitedStart: 05-12-2025 End: 11-73-6430Rhocgbtic Result EncounterCorey Law DO Work Phone: NOKO External Department UnsolicitedStart: 05-12-2025 End: 64-81-6331Siodocfpn Result EncounterCorey Law DO Work Phone: NOOM External Department UnsolicitedStart: 05-08-2025 End: 66-50-6558Umfimdoiq Result EncounterCorey Law DO Work Phone: NOET External Department UnsolicitedStart: 05-08-2025 End: 35-01-2170Fetrgvirk Result EncounterCorey Law DO Work Phone: NOEC External Department UnsolicitedStart: 04-30-2025 End: 63-99-0034wjxzydasjqWLYATCHY EBERLYNot AvailableStart: 04-30-2025 End: 88-63-6148Jtnztpow flow sheetCeasar Li NP Work Phone: [facility] [place] OBGYNComment on above:Third trimester ([facility]); 32 weeks gestation of ([facility])Start: 04-30-2025 End: 35-37-6417Ofnoem flowsheetCeasar Li NP Work Phone: [facility] [place] OBGYNStart: 04-30-2025 End: 10-18-2475Xunhlf flowsheetCeasar Li [employer] Work Phone: [facility] [place] OBGYNStart: 04-30-2025 End: 23-05-2191Qqtffmiza Result EncounterCorey Law DO Work Phone: NOMS External Department UnsolicitedStart: 04-14-2025 End: 49-78-1297tqloihvmwgDDK RAMEYNot AvailableStart: 04-14-2025 End: 29-61-6231Gtaxxvmc flow sheetRegina RUIZ Work Phone: NOMS Heri OBGYNComment on above:Third trimester ([facility]); 30 weeks gestation of ([facility])Start: 04-14-2025 End: 91-94-1455Dkbyaj Darek RUIZ Work Phone: [facility] [place] OBGYNStart: 04-14-2025 End: 25-68-8407Udpwyq Darek RUIZ Work Phone: [facility] [place] OBGYNStart: 04-05-2025 End: 39-56-2805Rwnboshwt Result EncounterRegina RUIZ Work Phone: NO External Department UnsolicitedStart: 04-05-2025 End: 23-50-0987Jjssjbpji Result EncounterRegina RUIZ Work Phone: no External Department UnsolicitedStart: 04-03-2025 End: 39-64-0958wapzmiaaqbSMU Lesa AvailableStart: 04-03-2025 End: 33-72-8214Thidkopa flow Chuy RUIZ Work Phone: N[facility] [place] OBGYNComment on above:28 weeks gestation of ([facility]); Third trimester ([facility]); Dizziness; Gestational diabetes mellitus (GDM), antepartum, gestational diabetes method of control unspecified([facility]); History of miscarriage; Anemia, unspecified type; UTI symptomsStart: 04-03-2025 End: 67-87-0793Qmknpx Darek RUIZ Work Phone: [facility] [place] OBGYNStart: 04-03-2025 End: 20-17-6475Ywbqcd Darek RUIZ Work Phone: N[facility] [place] OBGYNStart: 03-12-2025 End: 08-16-5037aicgizsezsRNQMX FAZIONot AvailableStart: 03-12-2025 End: 72-94-6300Bkwurwyz flow sheetCorey Law DO Work Phone: [facility] [place] OBGYNComment on above:25 weeks gestation of ([facility]); Second trimester ([facility]); Gastroesophageal reflux disease without esophagitisStart: 03-12-2025 End: 86-00-9355Nfdsis flowsheetCorey Law DO Work Phone: [facility] OBGYNStart: 03-12-2025 End: 46-81-0776Oibpwp flowsheetCorey Law DO Work Phone: [facility] [place] OBGYNStart: 02-26-2025 End: 97-76-6767alskuzcbgjEWBCS FAZIONot AvailableStart: 02-26-2025 End: 29-37-7753Ldqkyqml flow sheetCorey Law DO Work Phone: N[facility] Heri OBGYNComment on above:23 weeks gestation of ([facility]); Elevated blood sugar level; Gastroesophageal reflux disease without esophagitisStart: 02-26-2025 End: 17-88-5101Vjkqmp flowsheetCorey Law DO Work Phone: [facility] OBGYNStart: 02-26-2025 End: 71-52-2039Jqruje flowsheetCorey Law DO Work Phone: noMS [place] OBGYNStart: 02-11-2025 End: 64-92-3416Nfbxumda flow sheetCorey Law DO Work Phone: NOMS BCP OBComment on above:Second trimester ([facility]); 20 weeks gestation of ([facility])Start: 02-11-2025 End: 50-84-6949fxxensgzxxXWSUZ FAZIONot AvailableStart: 01-15-2025 End: 21-58-8805mzmnrhejeqPSVNK FAZIONot AvailableStart: 01-15-2025 End: 41-12-5009Ftanchnf flow sheetCorey Law DO Work Phone: NOMS BCP OBComment on above:Second trimester ([facility]); 17 weeks gestation of ([facility]); Vaginal discharge; STD exposure; Screening, , for anatomic survey ([facility]); Gastroesophageal reflux in ([facility]); Gestational diabetes mellitus (GDM), antepartum, gestational diabetes method of control unspecified([facility])Start: 01-15-2025 End: 95-76-0466Qyfzoz flowsheetCorey Law DO Work Phone: noMS BCP OBStart: 01-15-2025 End: 47-66-0199Qblnla flowsheetCorey Law DO Work Phone: noms BCP OBStart: 01-15-2025 End: 81-20-8155Qeeguojc Result EncounterAmy Oralia RUIZ Work Phone: noMS External Department UnsolicitedStart: 01-07-2025 End: 92-73-3180mjpfzugiohHLBDJHShanda Lamas [facility] HospitalStart: 01-07-2025 End: 85-53-3001Gjnjaauohf hospital visit by Kayden Steele CNP Work Phone: [facility]Start: 12-23-2024 End: 55-22-2507Ewasdfxgx Result EncounterCorey Law DO Work Phone: noMS External Department UnsolicitedStart: 12-23-2024 End: 83-62-8666Eyhqlaaxk Result EncounterCorey Law DO Work Phone: noms External Department UnsolicitedStart: 12-20-2024 End: 18-88-9676ibypgprovjWWREJYHallie Laams [facility] HospitalStart: 12-20-2024 End: 21-41-4861Cpummxqtig hospital visit by [facility] UltrasoundComment on above:Subchorionic hematoma, antepartum, first trimester, not applicable or unspecified fetusStart: 12-18-2024 End: 54-33-6183pnpedojahtZGIJC FAZIONot AvailableStart: 12-18-2024 End: 93-89-4493Ntbzlgvv flow sheetCorey Law DO Work Phone: noms BCP OBComment on above:Second trimester ; 12 weeks gestation of ; Subchorionic hematoma in first trimester, single or unspecified fetus; Diabetes mellitus screeningStart: 12-18-2024 End: 09-46-4698Zgsxah flowsheetCorey Law DO Work Phone: noms BCP OBStart: 12-18-2024 End: 33-26-0180Nvnnpx flowsheetCorey Law DO Work Phone: noms BCP OBStart: 11-14-2024 End: 38-60-9285Hkjjrl outpatient visit 5 minutesNoms Bcp Ob Law NurseNOMS BCP OBComment on above:GA: 4f2eDzsxr: 11-14-2024 End: 25-54-5724kilxnfwukuUXYQL FAZIONot AvailableStart: 07-15-2024 End: 09-01-6167Nqejvyi encounter procedureCorey Law DO Work Phone: NOMS HealthcareStart: 07-15-2024 End: 16-12-5316Qcnsjgso preventive med est patient 18-39 yrsCorey Law DO Work Phone: noms BCP OBComment on above:Well woman exam with routine gynecological examStart: 07-15-2024 End: 76-69-3235jepxtqgovqCERDF FAZIONot AvailableStart: 07-15-2024 End: 20-59-9139Xvylsrltn Result EncounterCorey Law DO Work Phone: noms External Department UnsolicitedStart: 07-15-2024 End: 86-85-4087Bibeowhkb Result EncounterCorey Law DO Work Phone: noms External Department UnsolicitedStart: 05-20-2024 End: 51-28-0691zhemazdpexLRDQHEHallie Lamas [facility] HospitalStart: 05-20-2024 End: 34-85-7716Xxflrnowgd hospital visit by Kayden Steele CNP Work Phone: mthz LaboratoryComment on above:Elevated liver enzymes; Mixed hyperlipidemiaStart: 03-06-2024 End: 61-06-2696gimpdjgdzjZOLDUFHallie Lamas [facility] HospitalStart: 02-16-2024 End: 84-95-3876wxmtdqoxybHTVDPQ M VAUGHNMercy [facility] HospitalStart: 08-06-2023 End: 82-52-1462ssjqlecoliPsxmeojr:[facility] HospitalStart: 07-11-2023 End: 19-77-4513iqvngmxxrzCLVJ Regional Medical Centertart: 03-20-2023 End: 55-23-0135exynwqiyrvKLSQM [facility] Youngstowntart: 12-17-2022 End: 58-25-0583ppigpylqgzGL MUKUL LAW .Facility:H9Ahkow: 12-12-2022 End: 82-94-5572tzllsztomxGF KYLIE AVILAPAULGage .Facility:V8Kwler: 12-10-2022 End: 18-95-0589ckwcwcsdvhFF MUKUL LAW .Facility:A7Imkbt: 10-31-2022 End: 91-00-9909xcmkukdxrkNB MUKUL LAW .Facility:G4Ywvej: 10-22-2022 End: 22-35-2854fdqvzysxzxQOW ORALIA .Facility:V6Ylucv: 10-15-2022 End: 21-44-3699myowelhyaaCC MUKUL LAW .Facility:Z4Tpoua: 09-12-2022 End: 48-26-9928zoidtkgxauXP MUKUL LAW .Facility:J7Qwpjx: 09-10-2022 End: 13-28-5648qcbrasudysDN MUKUL LAW .Facility:J3Tqaxb: 08-29-2022 End: 88-87-7988rinokqlslvJH MUKUL LAW .Facility:V7Xbdgf: 08-01-2022 End: 25-77-0450Txzyigsssx hospital [facility] LaboratoryStart: 07-04-2022 End: 34-98-2691uefzsyffwmXJ MUKUL LAW .Facility:M9Elqxb: 06-23-2022 End: 33-01-2012wazprqhnvpTU YELENA Calicility:V6Eisjy: 06-09-2022 End: 55-96-5564ixekkjsbvhUQ MUKUL LAW .Facility:C2Snwsy: 06-02-2022 End: 78-15-6641Sodtplejcf hospital visit by Kayden Steele CNP Work Phone: mthz LaboratoryStart: 04-18-2022 End: 36-14-3690rauekyuicvLO MUKUL FOY .Facility:P1Vbrgw: 09-23-2021 End: 74-58-3384eholgshtusQCWVU CHECO [facility]ilesdebbystone[facility] HospitalStart: 09-08-2021 End: 50-76-1356pmsrjdialjLGXXV R FAZIORiverside Rastafari HospitalStart: 08-25-2021 End: 14-44-7568izjramvcfaKVGSX R FAZIORiverside Rastafari HospitalStart: 08-19-2021 End: 19-71-7355zrzwaokrxlDVFGQ R FAZIORiverside Rastafari HospitalStart: 08-10-2021 End: 69-31-7092Blawqtspbf hospital visit by Kayden Rodriguez APRN - STRATEGIC ANALYST Work Phone: mthz LaboratoryComment on above:AmenorrheaStart: 11-25-2020 End: 86-10-6497Rdmvbogdvt hospital visit by [facility] RadiologyComment on above:Frequent UTIStart: 05-04-2020 End: 23-91-6917Plsmcmlcaa hospital visit by Kayden Chapman LaboratoryComment on above:Encounter for screening for HIV; Other fatigue; Wellness examinationStart: 03-03-2020 End: 06-45-6060Iqyqxtfreb hospital visit by Brayden Dickinson LaboratoryComment on above:Screening for cervical cancer; Encounter for annual routine gynecological examination Procedures DateProcedureProcedure DetailPerforming ClinicianStart: 71-66-6376Fqakx dip stick/tablet rgnt non-auto w/o micrscpCorey Law DO Work Phone: Start: 26-02-8948QL OB BPP W NON-STRESSCorey Law DO Work Phone: Start: 01-54-4897Awtaj dip stick/tablet rgnt non-auto w/o micrscpAmy Oralia RUIZ Work Phone: Start: 43-96-0963ZDQNH GP B CULTURE+RFLXAaric RUIZ Work Phone: Start: 35-21-4071KC OB BPP W NON-STRESSCorey Law DO Work Phone: Start: 55-25-3695JK OB BPP W NON-STRESSCorey Law DO Work Phone: Start: 31-76-1122Trpym dip stick/tablet rgnt non-auto w/o micrscpCorey Law DO Work Phone: Start: 89-82-0654ISP UA (CLEAN/CATCH) BOAT DOCK OPERATOR/MICRO IF IND.Mukul Law DO Work Phone: Start: 34-08-1240TD OB BPP W NON-STRESSCorey Law DO Work Phone: Start: 83-30-8810NR OB BPP W NON-STRESSCorey Law DO Work Phone: Start: 41-32-3437Egtet dip stick/tablet rgnt non-auto w/o micrscpKristina Guillermo [employer] Work Phone: Start: 09-85-8154Yowis dip stick/tablet rgnt non-auto w/o micrscpAaric RUIZ Work Phone: Start: 14-88-8035SA OB GROWTHRegina RUIZ Work Phone: Start: 77-71-7883WKI CBC WITH AUTO DIFFRegina RUIZ Work Phone: Start: 09-92-8471Knsyp dip stick/tablet rgnt non-auto w/o micrscpAmy Oralia RUIZ Work Phone: Start: 04-81-3488Mbjac dip stick/tablet rgnt non-auto w/o micrscpCorey Law DO Work Phone: Start: 63-12-6953Mwcnz dip stick/tablet rgnt non-auto w/o micrscpCorey Law DO Work Phone: Start: 81-67-0801Wgaof dip stick/tablet rgnt non-auto w/o micrscpCorey Law DO Work Phone: Start: 28-14-4853PUCSYCDDA VAGINITIS (HTRX)Regina RUIZ Work Phone: Start: 13-84-7554Hpeiq count complete automatedAmy L Oralia CAMPOS Work Phone: Start: 59-87-5396MR OB LESS THAN 14 WEEKS SINGLE OR FIRST GESTATIONCorey Law DO Work Phone: Start: 04-16-7499Omofm dip stick/tablet rgnt non-auto w/o micrscpCorey Law DO Work Phone: Start: 81-29-6169Trekq dip stick/tablet rgnt non-auto w/o micrscpCorey Law DO Work Phone: Start: 14-43-0793NQU,APTIMA HPV,AGE GDLNCorey Law DO Work Phone: Start: 84-42-3194Garuulffbvd observation [Identifier] in Cervix by Cyto Leonora Rodriguez CLINICAL SAFETY SPECIALIST - STRATEGIC ANALYST Work Phone: Start: 41-59-4815Ohthw panelYnes Rodriguez CLINICAL SAFETY SPECIALIST - STRATEGIC ANALYST Work Phone: Start: 01-19-9157Jceltqdrdvciv metabolic panelYnes Rodriguez CLINICAL SAFETY SPECIALIST - STRATEGIC ANALYST Work Phone: Start: 01-35-2635Jrsgrlgqjnr observation [Identifier] in Cervix by Cyto Gurjit RoomStart: 42-11-4018Dpolkkdf Navid Barroso CLINICAL SAFETY SPECIALIST - STRATEGIC ANALYST Work Phone: Start: 51-99-5951Ihormuyccbap chorionic quantitative Mukul Bill Foy MD Work Phone: Start: 83-57-3357Jvhnychrsopr chorionic quantitative Berto Checoyves Live CLINICAL SAFETY SPECIALIST - CNM Work Phone: Start: 35-34-1847Ip retroperitoneal real time w/image completeLorena Ricks CLINICAL SAFETY SPECIALIST - STRATEGIC ANALYST Work Phone: Start: 72-38-9780Xqudoznn hiv-1&hiv-2 single result Ynes Quilesughn Work Phone: Start: 36-00-3385Zixie of thyroid stimulating hormone tshYnes Quilesughn Work Phone: Start: 95-73-8217Fzhum metabolic panel calcium total Ynes Fischern Work Phone: Start: 28-32-7742Xpqqv count complete automatedYnes Fischern Work Phone: Start: 53-16-2110Xyyxusmhxts observation [Identifier] in Cervix by Cyto stainHarrycortezgoran Fede CLINICAL SAFETY SPECIALIST - STRATEGIC ANALYST Work Phone: Plan of Treatment DateCare ActivityDetailAuthorStart: 63-90-2465Tkspqsqsp for malignant neoplasm of cervixPap smearBon [facility]ogus Va Medical CenterStart: 24-91-4348Ygassycew for malignant neoplasm of cervixPap smearBon [facility]ogus Va Medical CenterStart: 08-07-2025 Depression ScreenDepression ScreenSovah Health - DanvilleStart: 07-28-2025 End: 65-78-8665Feohswc encounter procedureNOMS BCP OBStart: 06-02-2025 End: 44-76-1343Vsvzief encounter ubenhzvnl57/10/2025 1:00 PM EST Routine [facility] [address] [place], [id number] Mukul Foy, [address] [place], [place] [address] NOMS Heri OBGYNStart: 05-28-2025 End: 69-91-8761Idlsarv encounter dhpkgmida39/05/2025 2:30 PM EST Routine [facility] [address] [place], [id number] Regina Barton PA [address] [place] [address] NOMS Heri OBGYNStart: 05-28-2025 End: 26-41-9999VPKYNZK, GROUP B STREP WITH SUSCEPTIBLITYCULTURE, GROUP B STREP WITH SUSCEPTIBLITY Lab Routine Third trimester ([facility]) Expected: 05/28/2025, Expires: 05/28/2026[facility] Work Phone: comment on above:Expected: 05/28/2025, Expires: 05/28/2026Start: 05-28-2025 End: 95-50-0901Hcrxjmszxnfu / ancillary services wqdoytazhw30/05/2025 2:00 PM EST Ancillary Procedure [facility] Heri SANTO [address] [address] [phone] Heri OBGYNStart: 45-98-9434Rozxg panelLipids [facility] - DanvilleStart: 05-14-2025 End: 92-59-4891Jqdezbu encounter /22/2025 2:50 PM EDT Routine NOMRenzo SANTO [address] [place], [id number] Mukul Foy DO [address] [place] [address] NOMS Heri OBGYNStart: 05-14-2025 End: 67-31-5852QS for pregnancyUS OB follow up transabdominal approach Imaging Routine Insulin controlled gestational diabetes mellitus (GDM) during , antepartum ([facility]) Expected: 05/14/2025, Expires: 09/14/2025[facility] Work Phone: comment on above:Expected: 05/14/2025, Expires: 09/14/2025Start: 05-14-2025 End: 09-27-4514Rbnrkfc encounter /22/2025 11:40 AM EDT Office Visit [facility] [address] [place] [address] Ynes Rodriguez, CLINICAL SAFETY SPECIALIST - STRATEGIC ANALYST [address] [place] [address] 6 month f/[facility] Primary CareComment on above:6 month f/uStart: 04-30-2025 End: 94-33-7954Ttjderv encounter qmfyjhufm59/08/2025 3:00 PM EDT Routine [facility] OBGYN [address] [place], [id number] Ceasar Li, ASHWIN [address] [place] [address] NOMS Heri OBGYNStart: 04-14-2025 End: 32-86-0800Kbzxprq encounter daqmubrun21/22/2025 3:20 PM EDT Routine [facility] [address] [place], [id number] Regina Barton PA [address] [place] [address] NOMS Heri OBGYNStart: 04-03-2025 End: 13-08-3717Wggmmoa encounter /11/2025 3:30 PM EDT Routine [facility] [address] [place], [id number] Regina Barton PA [address] [place] [address] NOMS Heri OBGYNStart: 04-03-2025 End: 30-65-1127ICC W Auto Differential panel - BloodCBC and differential Lab Routine Dizziness Anemia, unspecified type Expected: 04/03/2025 (Approximate), Expires: 04/03/2026NORI HealthcareComment on above:Expected: 04/03/2025 (Approximate), Expires: 04/03/2026Start: 04-03-2025 End: 06-17-2044ZR biophysical profile w non stress testUS biophysical profile w non stress test Imaging Routine 28 weeks gestation of ([facility]) Third trimester ([facility]) Gestational diabetes mellitus (GDM), antepartum, gestational diabetes method of control unspecified ([facility]) History of miscarriage Expected: 04/03/2025 (Approximate), Expires: 10/01/2025NORI HealthcareComment on above:Expected: 04/03/2025 (Approximate), Expires: 10/01/2025Start: 04-03-2025 End: 83-10-9248NF for pregnancyUS OB follow up transabdominal approach Imaging Routine 28 weeks gestation of ([facility]) Third trimester ([facility]) Gestational diabetes mellitus (GDM), antepartum, gestational diabetes method of control unspecified ([facility]) History of miscarriage Expected: 04/03/2025, Expires: 08/03/2025[facility] Work Phone: comment on above:Expected: 04/03/2025, Expires: 08/03/2025Start: 14-65-1263NEWKH-19 Vaccine ( season)COVID-19 Vaccine ( season)[facility]S HealthcareStart: 72-79-1175Xbbshahxj vaccinationNOMS HealthcareStart: 01-89-2384Rbovhmrvg vaccinationFlu vaccine (Season Ended)[facility]erta HealthStart: 02-11-2025 End: 82-00-1925Llqqyzn encounter /22/2025 2:10 PM EDT Routine [facility] OB [address] [place] [address] Mukul Foy, DO [address] [place] [address] NOMS BCP OBStart: 02-11-2025 End: 73-64-7394Korrcxuzkaet / ancillary services wzodafuwdu46/22/2025 1:00 PM EDT Ancillary Procedure [facility] BCP OB [address] [place] [address] NOMS BCP OBStart: 01-15-2025 End: 82-05-0798Ynohmpu encounter qazdhinqe09/25/2025 3:50 PM EDT Routine [facility] BCP OB [address] [place] [address] Mukul Foy, DO [facility] [address] [place], [place] [address] NOMS BCP OBStart: 01-15-2025 End: 71-70-3750Yyhtl fetoprotein, maternalAlpha fetoprotein, maternal Lab Routine Second trimester ([facility]) 17 weeks gestation of ([facility]) Expected: 01/15/2025 (Approximate), Expires: 07/17/2025[facility] Comment on above:Expected: 01/15/2025 (Approximate), Expires: 07/17/2025Start: 01-15-2025 End: 81-88-7074KI for pregnancyUS OB 14+ weeks anatomy scan Imaging Routine Screening, , for anatomic survey ([facility]) Expected: 01/15/2025, Expires: 04/17/2025[facility] CenterComment on above:Expected: 01/15/2025, Expires: 04/17/2025Start: 12-18-2024 End: 03-64-0581Abjegib encounter qemhmmmsw60/28/2025 3:40 PM EDT Routine [facility] [address] [place] [place] [address] Mukul Foy, DO [address] [place], [place] [address] NOMS BCP OBStart: 12-18-2024 End: 23-72-6216LTH panel - Blood by Automated countCBC Lab Routine Diabetes mellitus screening Expected: 12/18/2024 (Approximate), Expires: 12/18/2025[facility] Work Phone: comment on above:Expected: 12/18/2024 (Approximate), Expires: 12/18/2025Start: 12-18-2024 End: 10-23-0727Uilhnsybfyf of glucose 1 hour after glucose challenge for glucose tolerance testGlucose tolerance, 1 hour Lab Routine Diabetes mellitus screening Expected: 12/18/2024 (Approximate), Expires: 12/18/2025[facility] HealthcareComment on above:Expected: 12/18/2024 (Approximate), Expires: 12/18/2025Start: 12-18-2024 End: 07-77-5041OL Pelvis transvaginalUS OB transvaginal Imaging Routine Subchorionic hematoma in first trimester, single or unspecified fetus Expected: 12/18/2024, Expires: 03/20/2025[facility] Work Phone: comment on above:Expected: 12/18/2024, Expires: 03/20/2025Start: 11-14-2024 End: 04-17-4980DSD/RhABO/Rh Lab Routine Missed menses , unspecified gestational age Expected: 11/14/2024 (Approximate), Expires: 11/14/2025[facility] HealthcareComment on above:Expected: 11/14/2024 (Approximate), Expires: 11/14/2025Start: 11-14-2024 End: 15-06-1840Deqjq type and Indirect antibody screen panel - BloodType and screen Lab Routine Missed menses , unspecified gestational age Expected: 11/14/2024 (Approximate), Expires: 11/14/2025[facility] HealthcareComment on above:Expected: 11/14/2024 (Approximate), Expires: 11/14/2025Start: 11-14-2024 End: 49-50-1564Hgwfo of abuse panel - Urine by Screen methodRapid drug screen, urine Lab Routine , unspecified gestational age Encounter for supervision of normal first in first trimester Expected: 11/14/2024 (Approximate), Expires: 11/14/2025[facility] HealthcareComment on above:Expected: 11/14/2024 (Approximate), Expires: 11/14/2025Start: 11-06-2024 End: 49-41-5131IL Pelvis transvaginalUS OB transvaginal Imaging Routine Missed menses Expected: 11/06/2024, Expires: 02/05/2025[facility] Work Phone: comment on above:Expected: 11/06/2024, Expires: 02/05/2025Start: 10-16-2024 End: 63-82-8746Roulfey encounter /26/2025 1:40 PM EDT Office Visit [address] [place] [address] Ynes Rodriguez, CLINICAL SAFETY SPECIALIST - STRATEGIC ANALYST [address] [place] [address] [address] [place] [address] [facility] Primary CareComment on above:WellnessStart: 87-34-9163Wrvkaklqkb ScreenDepression ScreenBon Secours Mercy Health St. Rita'S Medical CenterStart: 06-04-2024 End: 61-29-4176Vigojgs encounter elpbjfkoz61/12/2024 11:45 AM EST Office Visit [address] [place] [address] Jose Cruz Raza MD [address] [place] [address] Dr. [address] [place] [address] wt managementOhiohealth O'Bleness Hospital CareComment on above:wt managementStart: 05-22-2024 End: 14-39-8932Hcjclfx encounter vkdzelzku25/30/2024 11:00 AM EDT Office Visit [address] [place] [address] Ynes Rodriguez, CLINICAL SAFETY SPECIALIST - STRATEGIC ANALYST [address] [place] [address] Dr [address] [place] [address] LFT + HLD f/u(RS 10/17/23 appt)[facility] Primary CareComment on above:LFT + HLD f/u(RS 10/17/23 appt)Start: 77-89-7564WTXFQ-19 Vaccine ( season)COVID-19 Vaccine ( season)[facility]villeStart: 14-05-1177LBXUV-19 Vaccine ( season)COVID-19 Vaccine ()[facility] CenterStart: 19-70-8827Sualglajd vaccinationInfluenza Vaccine (#1)[facility] HealthcareStart: 33-95-1877Eyewlqcid vaccinationFlu vaccine (#1)[facility]villeStart: 03-30-3186Ojbbaaemx for malignant neoplasm of cervixJ.W. Ruby Memorial Hospital HealthStart: 19-66-3938Wvfnjzwope ScreenDepression ScreenBON MARIETTA OSTEOPATHIC CLINICStart: 07-11-2022 End: 68-73-3424Vfubwsr encounter apupqspqj30/19/2022 Office Visit Primary Care Ynes Rodriguez, CLINICAL SAFETY SPECIALIST - STRATEGIC ANALYST [address] [place] [address] [facility] Start: 05-19-2022 End: 57-32-2576Sxxgopg encounter vvcpggudc48/27/2022 Office Visit Obstetrics and Gynecology Berto Live, CLINICAL SAFETY SPECIALIST - CN [address] [place] [address] [facility] HospitalStart: 03-18-2022 End: 36-46-5172Mmfdtvb encounter btnizhauc39/26/2022 Office Visit Family Medicine Ynes Rodriguez CLINICAL SAFETY SPECIALIST - STRATEGIC ANALYST [address] [place] [address] [facility] Part [facility] HospitalStart: 14-90-2562Cqwlsltyb C screeningHepatitis C screenMercy HealthComment on above:Postponed from 1998 (Patient Refused)Start: 24-54-4545Tpholbljb vaccinationFlu vaccine (#1)[facility] Campusart: 53-22-6717Skkwjyfkf for Chlamydia trachomatisMercy Health St. Rita'S Medical CenterStart: 09-24-2021 Influenza vaccinationFlu vaccine (Season Ended)[facility] Work Phone: comment on above:Postponed from 03/24/2021 (Patient Refused)Start: 19-77-3580Xojnxkubzy MonitoringDepression [facility] Start: 18-34-1494JGACG-19 Vaccine (3 - Booster for Pfizer series)COVID-19 Vaccine (3 - Booster for Pfizer series)[facility] Westart: 94-51-4629VEuJ/Tdap/Td vaccine (7 - Td or Tdap)DTaP/Tdap/Td vaccine (7 - Td or Tdap)[facility] Westart: 61-90-9126VZlX/Tdap/Td vaccine (7 - Td)DTaP/Tdap/Td vaccine (7 - Td)[facility] Hospitalart: 12-50-2415Ekwozfksg vaccinationFlu vaccine (#1)[facility] Start: 45-20-6769Wvjuklczb for Chlamydia trachomatisChlamydia screenOhioHealth Riverside Methodist Hospitalart: 96-27-6429DPWWB-19 Vaccine (3 - Booster for Pfizer series) COVID-19 Vaccine (3 - Booster for Pfizer series)[facility]Start: 02-09-2021 End: 95-91-4338Xhmbsxd encounter owyesnguu42/20/2021 Office Visit Family Medicine Ynes Rodriguez, CLINICAL SAFETY SPECIALIST - STRATEGIC ANALYST [address] [place] [address] [phone] [facility] Part [facility]art: 11-30-2020 End: 92-47-5000Clwbhif encounter acnokfpau63/10/2021 Office Visit Urology Chris Moe MD [address] [facility] [place], [place] [phone] [facility]art: 05-28-2020 End: 43-60-3418Lgphzgrfrflm06/05/2020 Telemedicine Family Medicine Ynes Rodriguez, CLINICAL SAFETY SPECIALIST - STRATEGIC ANALYST [address] [place] [address] [phone] [facility] Start: 29-42-0496Lvfgekqld vaccinationFlu vaccine (#1)[facility]: 68-15-4502Fivbxbwwp for Chlamydia trachomatisChlamydia [facility]: 76-78-2819Bavekdklj for malignant neoplasm of cervixCervical cancer [facility]: 85-51-1345Wfediwyns B Vaccines (1 of 3 - 19+ 3- dose series)Hepatitis B Vaccines (1 of 3 - 19+ 3-dose series)[facility] Start: 83-92-2239Qrjrngqqj C screeningHepatitis C screenBON [facility] Start: 37-45-2193BEHXB-19 Vaccine (1)COVID-19 Vaccine (1)[facility] Work Phone: start: 48-18-7477FAE screeningHIV [facility]: 70-35-1831TIG Vaccines (1 - 3-dose series)HPV Vaccines (1 - 3-dose series)[facility] HealthcareStart: 86-70-8794Ykpegmn of varicella vaccinationVaricella Vaccines (1 of 2 - 13+ 2-dose series)[facility] HealthcareStart: 2005 DTaP/Tdap/Td Vaccines (1 - Tdap)DTaP/Tdap/Td Vaccines (1 - Tdap)[facility] Start: 02-95-6727JKT Vaccines (1 of 1 - Standard series)MMR Vaccines (1 of 1 - Standard series)[facility] HealthcareStart: 06-23-1476Jqszovffx C screeningHepatitis C [facility] Phone: bacteria identified in Urine by CultureUrine culture Microbiology Routine Missed menses Ordered: 11/14/2024[facility] HealthcareComment on above:Ordered: 5Bacteria identified in Urine by CultureUrine culture Microbiology Routine UTI symptoms Ordered: 04/03/2025[facility] HealthcareComment on above:Ordered: 04/03/2025 End: 03-03-2020C.trachomatis N.gonorrhoeae DNA, Thin PrepC.trachomatis N.gonorrhoeae DNA, Thin Prep Microbiology Routine Encounter for annual routine gynecological examination 1 Occurrences starting 03/03/2020 until 03/03/2020 [facility], MARIELAComment on above:1 Occurrences starting 03/03/2020 until 03/03/2020C.trachomatis N.gonorrhoeae DNA, Thin PrepC.trachomatis N.gonorrhoeae DNA, Thin Prep Microbiology Routine Encounter for annual routine gynecological examination 03/03/2020 5:08 PM [facility], KYCBC W Auto Differential panel - BloodCBC and differential Lab Routine Missed menses , unspecified gestational age Ordered: 11/14/2024[facility] HealthcareComment on above: Ordered: 5CHLAMYDIA TRACHOMATIS (GENITO/STI)CHLAMYDIA TRACHOMATIS (GENITO/STI) Lab Routine STD exposure Ordered: 01/15/2025[facility] HealthcareComment on above:Ordered: 5Cytology Cervical or vaginal smear or scraping study Pap Smear Pathology and Cytology Routine Well woman exam with routine gynecological exam Ordered: 07/15/2024[facility] Work Phone: comment on above:Ordered: 07/15/2024 End: 61-76-3439Ahbmzispldhvh procedure, preparation of smear, genital sourcePAP SMEAR Lab Routine Screening for cervical cancer 1 Occurrences starting 03/03/2020 until 03/03/2020[facility], MARIELAComment on above:1 Occurrences starting 03/03/2020 until 03/03/2020Hemoglobin A1c/Hemoglobin.total in Blood Hemoglobin A1c Lab Routine Missed menses , unspecified gestational age Ordered: 11/14/2024[facility] HealthcareComment on above:Ordered: 11/14/2024Hepatitis B virus surface Ag [Presence] in Serum or Plasma by ImmunoassayHepatitis B surface antigen Lab Routine Missed menses , unspecified gestational age Ordered: 11/14/2024[facility] HealthcareComment on above:Ordered: 11/14/2024Hepatitis C virus Ab [Presence] in Serum or Plasma by ImmunoassayHepatitis C antibody Lab Routine Missed menses , unspecified gestational age Ordered: 11/14[facility] HealthcareComment on above:Ordered: 11/14/2024HIV-1/HIV-2 antigen/antibody combination immunoassayHIV-1 and HIV-2 antibodies Lab Routine Missed menses , unspecified gestational age Ordered: 11/14/2024[facility] HealthcareComment on above:Ordered: 11/14/2024Neisseria gonorrhoeae DNA [Presence] in Unspecified specimen by ANISA with probe detectionNeisseria gonorrhea DNA probe, direct Lab Routine STD exposure Ordered: 01/15/2025[facility] HealthcareComment on above:Ordered: 01/15/2025Reagin Ab [Presence] in Serum by RPRRPR Lab Routine Missed menses , unspecified gestational age Ordered: 11/14/2024[facility] HealthcareComment on above:Ordered: 11/14/2024Rubella antibody, IgGRubella antibody, IgG Lab Routine Missed menses , unspecified gestational age Ordered: 11/14/2024[facility] HealthcareComment on above:Ordered: 11/14/2024SURESWAB(R) ADVANCED VAGINITIS PLUS, TMASURESWAB(R) ADVANCED VAGINITIS PLUS, TMA Pathology and Cytology Routine Vaginal discharge Ordered: 01/15/2025 [facility] Work Phone: comment on above:Ordered: 01/15/2025US Pelvis transvaginalUS OB transvaginal Imaging Routine Missed menses 11/14/2024 2:38 PM [facility] End: 13-42-8399Ga uterus 14 wk transabdl 07/24 [facility] Work Phone: Comment on above:1 Occurrences starting 12/20/2024 until 12/20/2024 Immunizations Immunization DateImmunizationNotesCare NtmrdpdiSgwwjtgu73-86-0127ESHAT-87, Pfizer Purple top, DILUTE for use, 12+ yrs, 30mcg/0.3mL doseHannah Rodriguez CLINICAL SAFETY SPECIALIST - [facility] Work Phone: [facility] Work Phone: [phone]-71, Pfizer Purple top, DILUTE for use, 12+ yrs, 30mcg/0.3mL doseHannah Rodriguez CLINICAL SAFETY SPECIALIST [facility] Work Phone: [facility]S Medical CenterIjonww14-05-9634apqht papilloma virus vaccine, quadrivalentMercy Health St. [facility], MG55-12-2020oqtrj papilloma virus vaccine, quadrivalentMercy Health St. [facility], KQ64-61-6984apkqk papilloma virus vaccine, quadrivalentMercy Health St. [facility], [place] 41-26-9179hbxuutcbqbfey polysaccharide (groups A, C, Y and W-135) diphtheria toxoid conjugate vaccine (MCV4P)[facility], IS60-38-6836 meningococcal ACWY vaccine, unspecified formulationMercy Health St. [facility], OE01-29-3281Fvjqllyuz A Ped/Adol (Vaqta)[facility], [place] 85-47-4418psnkzdluq A vaccine, pediatric/adolescent dosage, 2 dose schedule Ynes Rodriguez CLINICAL SAFETY SPECIALIST [facility] Work Phone: [facility] Work Phone: [phone] toxoid, reduced diphtheria toxoid, and acellular pertussis vaccine, adsorbedMercy Health St. [facility], [place] 43-52-0692Mhmxhmryz A Ped/Adol (Vaqta)[facility], [place] 92-25-7066sgyintrqw A vaccine, pediatric/adolescent dosage, 2 dose schedule Ynes Rodriguez [facility] Work Phone: [facility] Work Phone: [phone]tg virus vaccineMercy Health St. [facility], RZ16-06-1473eyedpigyvbxpg polysaccharide (groups A, C, Y and W-135) diphtheria toxoid conjugate vaccine (MCV4P)[facility], [place] 77-34-7811qbxcypzklm, tetanus toxoids and acellular pertussis vaccineMercy Health St. [facility], VN12-23-8160dfrndac, mumps and rubella virus vaccine [facility], VK99-37-9018muhlggfidn vaccine, inactivated [facility], PG56-02-4326ibaswatbrn, tetanus toxoids and acellular pertussis vaccineMercy Health St. [facility], UV46-36-6511 haemophilus influenzae type b vaccine, PRP-T conjugateMercy Health St[facility], RL45-87-0366vggnutfyho vaccine, inactivatedMercy Health St[facility], GM40-22-9822vjvwhzf, mumps and rubella virus vaccineMount St. [facility], XZ83-71-2824rwvahxhtc virus vaccineMercy Health St. [facility], WK40-98-8213qgdatcrfw B vaccine, pediatric or pediatric/adolescent dosageMercy Health St. [facility], MC95-60-5701zdnwkhhacg, tetanus toxoids and acellular pertussis vaccineMercy Health St. [facility], PZ26-95-3547 haemophilus influenzae type b vaccine, PRP-T conjugateMercy Health [facility], RY86-95-2392uorgvidpgg, tetanus toxoids and acellular pertussis vaccineMercy Health St. [facility], AM14-31-4479ueaasfnftri influenzae type b vaccine, PRP-T conjugateMercy Health [facility], PH76-17-3[address] vaccine, [address] [facility], RE51-74-4439 haemophilus influenzae type b vaccine, PRP-T conjugateMercy Health [facility], SW12-05-8592gxlznxredk vaccine, inactivatedMercy Health St. [facility], JO62-13-4906ppuqffmxna, tetanus toxoids and acellular pertussis vaccineFayette County Memorial Hospital03-18-1999hepatitis B vaccine, pediatric or pediatric/adolescent dosageMercy Health St[facility], GL20-81-5401 hepatitis B vaccine, pediatric or pediatric/adolescent dosageMount St. [facility], [place] Payers DatePayer CategoryPayerPolic [id number] [facility] [id number] 2022-Present [address] [facility] [place] [address] [id number]slb Health InsuranceTRIHEALTHCAL MUTUAL Member Subscriber Plan / Payer (Effective 2022-Present) Name: GrantVinny witt Relation to Subscriber: Spouse Name: Abhishek Downey Date of : 1996 Address: [address] [place] [id number] Payer ID: Not on file Type: Not on file Address: [address] [id number] [id number] 2..1.283606.3.57[id number] 2..1.282087.3.57[id number] 2..1.033482.3.57[id number] 2..1.282186.3.57[id number] 2..1.061742.3.57[id number] 2.0.1.875109.3.579.[id number] 2..1.997716.3.57[id number] 2.0.1.289534.3.579.[id number] 2.16.840.1.195143.3.57[id number] 2.16.840.1.960346.3.579.2.05128-97-6581Mlcqbdc3400033 2.16.840.1.538075.3.579.2.05057-52-7689Zqlqvcm4595036 2.16.840.1.751376.3.579.2.09992-01-9130Izkznvo7167436 2.16.840.1.624592.3.579.2.27663-03-4392Ftwqndz6581518 2.16.840.1.378712.3.579.2.60745-14-5916Kclfhlp4538115 2.16.840.1.240663.3.579.[id number] 2.840.1.748748.3.579.[id number] 2.16.840.1.805503.3.579.[id number] 2..840.1.044830.3.57[id number] 2.16.840.1.376327.3.579.2.93169-11-3257Fumbggd80262830 2.840.1.684776.3.579.2.34783-98-7180Edamanp32816420 2.16.840.1.725203.3.579.2.4[id number] 2.16840.1.527242.3.579.2.17658-03-8649Dlpljar21685205 2.16.840.1.909063.3.579.2.44841-94-3005Aroxdxy22402272 2.16.840.1.217967.3.57[id number] 2.16.840.1.379949.3.579.2.013625-43-6471Eghflsy50847421 2.16.840.1.119673.3.579.2.[id number] 2.16840.1.953100.3.57[id number] 2.16.840.1.645288.3.57[id number] 2.840.1.125477.3.57[id number] 2.840.1.390033.3.57[id number] 2.840.1.283156.3.57[id number] 2.840.1.193526.3.57[id number] 2.840.1.486101.3.579.[id number] 2.840.1.117385.3.579.[id number] 2.840.1.693084.3.57[id number] 2.840.1.065542.3.579.2.[id number] 2.16840.1.864383.3.57[id number] 2.840.1.040038.3.579.2.4[id number] 2.16.840.1.878956.3.579.2.932006-28-4455Rkcu-x[id number] 1.2.840.025052.1.13.239.2.7.3.295002.65474-89-5152Jaapqzw60205526154494-15-8852 [id number] 2.16.840.1.530982.3.579.2.593 Social History DateTypeDetailFacilityStart: 03-03-2020 End: 26-64-7814Qhkpluk smoking status NHISNever smokerSelect [facility] 03-[facility]-2020 End: 69-42-1171Bytjted use and exposureNever usedSelect Medical Specialty [facility], [facility]: 03-03-2020 End: 43-74-7885Sqyjxbl intakeCurrent drinker of alcohol (finding)[facility]: 89-66-7138Neclidp CommentsDeer [facility]: 41-28-3983Hor Assigned At BirthNot on [facility]: 05-01-2020 End: 69-88-0146Butyffa SDOH Wlrpgvffe8ApsynSelect Medical Specialty [facility], [facility]: 05-01-2020 End: 67-44-2416Fbygrmz SDOH Food Kfhad9EoejtSelect Medical Specialty [facility]: 05-01-2020 History SDOH Transport [place]q9TkjjvMeredith, [place]Exposure to SARS-CoV-2 (event)Not sureOur [facility]: 05-01-2024 End: 73-64-4802Flhlhadlj beverage intakeEx-drinker (finding)[facility]: 05-01-2024 End: 68-19-2960Mfqhkqe of Social functionBon Martins Ferry Hospital: 05-01-2024 End: 91-33-3359Mvklybp use panelBon [facility]ins [facility] Hospital: 80-06-3543Krr hard is it for you to pay for the very basics like food, housing, medical care, and heatingNot hard at allPrescott Va Medical Center TrackerSphere(I/We) worried whether (my/our) food would run out before (I/we) got money to buy more.Never trueBon [facility] Cross HospitalSosedi [facility] HospitalStart: 50-31-3858Hle assigned at birthFemaleBon Holy Cross HospitalSosedi [facility] HospitalStart: 33-35-2722Jeihdl identityIdentifies as female gender (finding)[facility] VenX Medical [facility] HospitalStart: 07-05-2023 End: 22-19-8603Oifygzyct beverage intakeLifetime non-drinker (finding)[facility] HealthcareStart: 26-99-4098FfjrgbxtxTLHS HealthcareHas the electric, gas, oil, or water company threatened to shut off services in your home in past 12MoNoBon Holy Cross HospitalSosedi [facility] HospitalStart: 09-14-7173DrqVpqzhi (finding)[facility] [employer] Medical Equipment Procedure CodeEquipment CodeEquipment Original TextEquipment IdentifierDatesUse as [id number]: 01-15-2025 End: 63-01-2786Jwzwix 1 each under the skin [id number]: 04-07-2025 End: 07-16-2025 Goals DatePatient GoalDesired Activity/StatePersonal health goal Clinical Notes 03-20-2023 to 06-02-2025 Note Date & LqrkSxtlGgazixtc93-69-6189 History of Present illness Narrative* Mukul Foy, [...] Frequent UTI 11/30/2020 23 weeks gestation of ([facility]) 02/26/2025 Elevated blood sugar level 02/26/2025 Resolved Ambulatory Problems Diagnosis Date Noted Missed period 01/13/2023 Past Medical History: Diagnosis Date GDM (gestational diabetes mellitus) ([facility]) Family History[1] Social History Tobacco Use Smoking [...] nursing note reviewed. Exam conducted with a security management specialist present. Vitals: Estimated body mass index is 38.38 kg/m as calculated from the following: Height as of 01/30/23: 5' 6 . Weight as of this encounter: 237 lb 12.8 oz. BP: 138/80 Patient's last menstrual period was 09/16/2024. Assessment/Plan Encounter Diagnosis: ICD-10-CM 1. 37 weeks gestation of ([facility]) Z3A.37 POCT urinalysis dipstick manually resulted 2. Third trimester ([facility]) Z34.93 POCT urinalysis dipstick manually resulted 3. Insulin controlled gestational diabetes mellitus (GDM) during , antepartum ([facility]) O24.414 4. Gestational diabetes mellitus (GDM), antepartum, gestational diabetes method of control unspecified ([facility]) O24.419 insulin glargine (Lantus SoloStar) [...] [3] No Known Allergies documented in this encounterWestern Missouri Medical CenterTlpvtubvtx76-89-3213 History of Present illness Narrative* JOSEPH Bowie [...] Frequent UTI 11/30/2020 23 weeks gestation of ([facility]) 02/26/2025 Elevated blood sugar level 02/26/2025 Resolved Ambulatory Problems Diagnosis Date Noted Missed period 01/13/2023 Past Medical History: Diagnosis Date GDM (gestational diabetes mellitus) ([facility]) HISTORY PAST MEDICAL HISTORY SOCIAL HISTORY Past Medical History: Diagnosis Date GDM (gestational diabetes mellitus) ([facility]) Social History Tobacco Use Smoking status: [...] nursing note reviewed. Exam conducted with a security management specialist present. Vitals: Estimated body mass index is 38.38 kg/m as calculated from the following: Height as of 01/30/23: 5' 6 . Weight as of this encounter: 237 lb 12.8 oz. BP: 120/80 Patient's last menstrual period was 09/16/2024. Assessment/Plan ICD-10-CM 1. Third trimester ([facility]) Z34.93 CULTURE, GROUP B STREP WITH SUSCEPTIBLITY CULTURE, GROUP B STREP WITH SUSCEPTIBLITY 2. 36 weeks gestation of ([facility]) Z3A.36 POCT urinalysis dipstick manually resulted [...] behalf of: JOSEPH Bowie documented in this encounterWestern Missouri Medical CenterIfzmkhztoa42-82-5354 History of Present illness Narrative* Criselda Aguirre [...] 23 weeks gestation of ([facility]) 02/26/2025 Elevated blood sugar level 02/26/2025 Resolved Ambulatory Problems Diagnosis Date Noted Missed period 01/13/2023 Past Medical History: Diagnosis Date GDM (gestational diabetes mellitus) ([facility]) HISTORY PAST MEDICAL HISTORY SOCIAL HISTORY Past Medical History: Diagnosis Date GDM (gestational diabetes mellitus) ([facility]) Social History Tobacco Use Smoking status: [...] nursing note reviewed. Exam conducted with a security management specialist present. Vitals: Estimated body mass index is 37.47 kg/m as calculated from the following: Height as of 01/30/23: 5' 6 . Weight as of this encounter: 232 lb 1.9 oz. BP: 110/70 Patient's last menstrual period was 09/16/2024. Assessment/Plan ICD-10-CM 1. Third trimester ([facility]) Z34.93 2. 34 weeks gestation of ([facility]) Z3A.34 POCT urinalysis dipstick manually resulted [...] of: Mukul Foy DO documented in this encounterWestern Missouri Medical CenterTskmviwsuf38-38-4178 History of Present illness Narrative* Ceasar Li [...] Frequent UTI 11/30/2020 23 weeks gestation of ([facility]) 02/26/2025 Elevated blood sugar level 02/26/2025 Resolved Ambulatory Problems Diagnosis Date Noted Missed period 01/13/2023 Past Medical History: Diagnosis Date GDM (gestational diabetes mellitus) ([facility]) HISTORY PAST MEDICAL HISTORY SOCIAL HISTORY Past Medical History: Diagnosis Date GDM (gestational diabetes mellitus) ([facility]) Social History Tobacco Use Smoking status: [...] nursing note reviewed. Exam conducted with a security management specialist present. Vitals: Estimated body mass index is 36.7 kg/m as calculated from the following: Height as of 01/30/23: 5' 6 . Weight as of this encounter: 227 lb 6.4 oz. BP: 110/70 Patient's last menstrual period was 09/16/2024. ASSESSMENT & PLAN ICD-10-CM 1. Third trimester ([facility]) Z34.93 2. 32 weeks gestation of ([facility]) Z3A.32 POCT urinalysis dipstick manually resulted [...] of: Ceasar Li NP documented in this encounterWestern Missouri Medical CenterUxzdhuxcje10-69-9802 History of Present illness Narrative* JOSEPH Bowie [...] Frequent UTI 11/30/2020 23 weeks gestation of ([facility]) 02/26/2025 Elevated blood sugar level 02/26/2025 Resolved Ambulatory Problems Diagnosis Date Noted Missed period 01/13/2023 Past Medical History: Diagnosis Date GDM (gestational diabetes mellitus) ([facility]) HISTORY PAST MEDICAL HISTORY SOCIAL HISTORY Past Medical History: Diagnosis Date GDM (gestational diabetes mellitus) ([facility]) Social History Tobacco Use Smoking status: [...] ASSESSMENT & PLAN ICD-10-CM 1. Third trimester ([facility]) Z34.93 POCT urinalysis dipstick manually resulted 2. 30 weeks gestation of ([facility]) Z3A.30 Return OB: Patient presents today [...] behalf of: JOSEPH Bowie documented in this encounterWestern Missouri Medical CenterOmeqxtfhca15-56-2218 History of Present illness Narrative* JOSEPH Bowie [...] Frequent UTI 11/30/2020 23 weeks gestation of ([facility]) 02/26/2025 Elevated blood sugar level 02/26/2025 Resolved Ambulatory Problems Diagnosis Date Noted Missed period 01/13/2023 Past Medical History: Diagnosis Date GDM (gestational diabetes mellitus) ([facility]) HISTORY PAST MEDICAL HISTORY SOCIAL HISTORY Past Medical History: Diagnosis Date GDM (gestational diabetes mellitus) ([facility]) Social History Tobacco Use Smoking status: [...] PLAN ICD-10-CM 1. 28 weeks gestation of ([facility]) Z3A.28 POCT urinalysis dipstick manually resulted US OB follow up transabdominal approach US biophysical profile w non stress test 2. Third trimester ([facility]) Z34.93 POCT urinalysis dipstick manually resulted US OB follow up transabdominal approach US biophysical profile w non stress test 3. Dizziness R42 CBC and differential CBC and differential 4. Gestational diabetes mellitus (GDM), antepartum, gestational diabetes method of control unspecified ([facility]) O24.419 US OB follow up transabdominal [...] behalf of: JOSEPH Bowie documented in this encounterWestern Missouri Medical CenterUxwqpeeduz40-60-6512 History of Present illness Narrative* Mukul Foy [...] Frequent UTI 11/30/2020 23 weeks gestation of ([facility]) 02/26/2025 Elevated blood sugar level 02/26/2025 Resolved Ambulatory Problems Diagnosis Date Noted Missed period 01/13/2023 Past Medical History: Diagnosis Date GDM (gestational diabetes mellitus) ([facility]) No family history on file. Social [...] nursing note reviewed. Exam conducted with a security management specialist present. Vitals: Estimated body mass index is 36.12 kg/m as calculated from the following: Height as of 01/30/23: 5' 6 . Weight as of this encounter: 223 lb 12.8 oz. BP: 100/70 Patient's last menstrual period was 09/16/2024. Assessment/Plan Encounter Diagnosis: ICD-10-CM 1. 25 weeks gestation of ([facility]) Z3A.25 POCT urinalysis dipstick manually resulted 2. Second trimester ([facility]) Z34.92 POCT urinalysis dipstick manually resulted [...] of: Mukul Foy DO documented in this encounterWestern Missouri Medical CenterDmhokbgbhh47-82-5729 History of Present illness Narrative* Ceasar Li [...] Frequent UTI 11/30/2020 23 weeks gestation of ([facility]) 02/26/2025 Elevated blood sugar level 02/26/2025 Resolved Ambulatory Problems Diagnosis Date Noted Missed period 01/13/2023 Past Medical History: Diagnosis Date GDM (gestational diabetes mellitus) ([facility]) HISTORY PAST MEDICAL HISTORY SOCIAL HISTORY Past Medical History: Diagnosis Date GDM (gestational diabetes mellitus) ([facility]) Social History Tobacco Use Smoking status: [...] nursing note reviewed. Exam conducted with a security management specialist present. Vitals: Estimated body mass index is 35.96 kg/m as calculated from the following: Height as of 01/30/23: 5' 6 . Weight as of this encounter: 222 lb 12.8 oz. BP: 110/70 Patient's last menstrual period was 09/16/2024. ASSESSMENT & PLAN ICD-10-CM 1. 23 weeks gestation of ([facility]) Z3A.23 POCT urinalysis dipstick manually [...] of: Mukul Foy DO documented in this encounterWestern Missouri Medical CenterGjijubxhca12-82-8056 History of Present illness Narrative* JOSEPH Bowie [...] History: Diagnosis Date GDM (gestational diabetes mellitus) ([facility]) HISTORY PAST MEDICAL HISTORY SOCIAL HISTORY Past Medical History: Diagnosis Date GDM (gestational diabetes mellitus) ([facility]) Social History Tobacco Use Smoking status: [...] ASSESSMENT & PLAN ICD-10-CM 1. Second trimester ([facility]) Z34.92 metFORMIN XR (Glucophage-XR) 500 MG 24 hr tablet POCT urinalysis dipstick manually resulted 2. 20 weeks gestation of ([facility]) Z3A.20 metFORMIN XR (Glucophage-XR) 500 MG [...] of: Mukul Foy DO documented in this encounterWestern Missouri Medical CenterDxksaoobyu09-59-0421 History of Present illness Narrative* Crieslda Aguirre LPN - 01/15/2025 3:50 PM EDT [...] History: Diagnosis Date GDM (gestational diabetes mellitus) ([facility]) HISTORY PAST MEDICAL HISTORY SOCIAL HISTORY Past Medical History: Diagnosis Date GDM (gestational diabetes mellitus) ([facility]) Social History Tobacco Use Smoking status: [...] nursing note reviewed. Exam conducted with a security management specialist present. Vitals: Estimated body mass index is 34.19 kg/m as calculated from the following: Height as of 01/30/23: 5' 6 . Weight as of this encounter: 211 lb 12.8 oz. BP: 118/72 Patient's last menstrual period was 09/16/2024. ASSESSMENT & PLAN ICD-10-CM 1. Second trimester ([facility]) Z34.92 Alpha fetoprotein, maternal Alpha fetoprotein, maternal 2. 17 weeks gestation of ([facility]) Z3A.17 Alpha fetoprotein, maternal Alpha fetoprotein, maternal 3. Vaginal discharge N89.8 SURESWAB(R) ADVANCED VAGINITIS PLUS, TMA 4. STD exposure Z20.2 CHLAMYDIA TRACHOMATIS (GENITO/STI) Neisseria gonorrhea DNA probe, direct 5. Screening, , for anatomic survey ([facility]) Z36.89 US OB 14+ weeks anatomy scan 6. Gastroesophageal reflux in ([facility]) O99.619 omeprazole (PriLOSEC) [address] capsule K21.9 7. Gestational diabetes mellitus (GDM), antepartum, gestational diabetes method of control unspecified ([facility]) O24.419 glucose blood test strip Return [...] behalf of: alesha bowie documented in this encounterWestern Missouri Medical CenterHfjgnfjltk55-42-7214 History of Present illness Narrative* JOSEPH Bowie [...] Documented by JOSEPH Bowie documented in this encounterWestern Missouri Medical CenterEuaqftlohd22-10-2827 History of Present illness Narrative* Elizabeth Ware [...] Nurse Note: Patient uncertain of doing the [place] screening. Pt was advised both labs and [...] or undercooked meat, and stay away from [facility]. Patient has also been advised to [...] by: Elizabeth Ware MA documented in this encounterWestern Missouri Medical CenterSloyqgjuao41-33-7139 History of Present illness Narrative* Elizabeth Ware [...] nursing note reviewed. Exam conducted with a security management specialist present. Vitals: Estimated body mass index [...] of: Mukul Foy DO documented in this encounterWestern Missouri Medical CenterNzawrxmwzo45-72-7007 NoteHNO ID: [id number] Author: LANG CARREON APRN.[facility] Service: ? Author Type: Nurse Practitioner Type: Progress Notes Filed: 08/06/2023 10:44 Note Text: Telemedicine Visit - Distance Health Virtual Visit Note I have communicated my name and active licensure. The patient's identity and physical location were verified at the time of this visit. Either the patient or their legal human resources hr representative has been informed of the risks and benefits of -- and alternatives to -- treatment through a remote evaluation and consents to proceed with the evaluation remotely. Patient seen on virtual platforms, [employer]. Location of patient: [place] History of [...] - Sleep with head elevated due to vxhv-mgqzh-qudp increases cough - Continue Flonase - Flonase: [...] care - All questions answered Lang Carreon APRN.[facility]12-19-2023 NoteUT Electrophysiology Consult Note Reason for [...] recent labs Rajendra Sheffield MD Cardiac Electrophysiology [facility]12-19-2023 NotePatient here for follow up event monitor. Echo was not performed that was ordered at last apt in Feb 2023 by Israel Champion CNP. Does not notice palpitations as often. Denies chest pain, SOB, and lightheadedness. Review of Systems Cardiovascular: Positive for palpitations (less often). All other systems reviewed and are negative.[facility] 03-30-2023 Note-developed anemia s/p -hgb 10.8 [facility]Un[facility]-2023 Note- could be related to being , anemia -monitor and echo to rule out cardiac concernUnBerger Hospital 03-30-2023 Note- takes sertraline 50 mg dailyUnBerger Hospital 03-30-2023 Note- 30-day event monitor - we will hold off on starting medication until follow-upUnBerger Hospital08-28-2023 NoteNew patient here to establish care. Ref from Dr. Foy for bradycardia. She is 8 weeks . Had ECG last week. Symptoms started after baby was born. She feels palpitations. Did lose a lot of blood with , requiring transfusion. Denies chest pain and SOB. Review of Systems Cardiovascular: Positive for palpitations. Neurological: Positive for headaches. All other systems reviewed and are negative.[facility] 03-20-2023 NoteUT Electrophysiology Consult Note [...] images are attached to (more content not included)...[facility]Evaluation [facility]* Diagnosis Frequent UTI Urinary tract infection, site not specified documented in this encounter [employer] Phone: evaluation note* Diagnosis Amenorrhea Absence of menstruation documented in this encounter [employer] Phone: evaluation note* Diagnosis Elevated liver enzymes Nonspecific elevation of levels of transaminase or lactic acid dehydrogenase (LDH) Mixed hyperlipidemia documented in this encounter [employer] note* Diagnosis Well woman exam with routine gynecological exam Routine gynecological examination documented [facility] encounter [facility] HealthcareEvaluation [facility]* Diagnosis Missed menses 8 weeks gestation of , unspecified gestational age Encounter for supervision of normal first in first trimester History of miscarriage Personal history of other genital system and obstetric disorders documented in this encounter [facility] HealthcareEvaluation note* Diagnosis Second trimester state, incidental 12 weeks gestation of Subchorionic hematoma in first trimester, single or unspecified fetus Diabetes mellitus screening Screening for diabetes mellitus documented in this encounter [facility] HealthcareEvaluation note* Diagnosis Subchorionic hematoma, antepartum, first trimester, not applicable or unspecified fetus documented in this encounter [employer]Evaluation note* Diagnosis Second trimester ([facility]) state, incidental 17 weeks gestation of ([facility]) Vaginal discharge Leukorrhea, not specified as infective STD exposure Screening, , for anatomic survey ([facility]) Encounter for anatomic survey Gastroesophageal reflux in ([facility]) Gestational diabetes mellitus (GDM), antepartum, gestational diabetes method of control unspecified([facility]) documented in this encounter [facility] [...] DOPPLER US OB TRANSVAGINAL Mukul Foy MD [address] [place] [address] Phone: tel: Referral IDStatusReasonStart DateExpiration DateVisits RequestedVisits [id number] [facility] Assessments Diagnosis Screening for cervical cancer Screening for malignant neoplasm of the cervix Encounter for annual routine gynecological examination Diagnosis Encounter for screening for HIV Other fatigue Wellness examination Advance Directives TypeDate RecordedPatient RepresentativeExplanationAdvance Directives and Living WillPower of AttorneyTypeDate RecordedPatient RepresentativeExplanationACP- Advance DirectiveACP-Power of AttorneyTypeDate RecordedPatient Support Clerk ExplanationACP-Advance DirectiveACP-Power of Line Up Examiner Summary Purpose Family History No Family History Records FoundNo Family History Records FoundNo Family History Records FoundNo Family History Records FoundNo Family History Records FoundNo Family History Records FoundNo Family History Records Found Reason for Referral StatusReasonSpecialtyDiagnoses / ProceduresReferred By ContactReferred To ContactClosedRadiology Diagnoses Frequent UTI Procedures US RENAL COMPLETE Lorena Ricks, CLINICAL SAFETY SPECIALIST - STRATEGIC ANALYST [address] [place] [address] Additional Source Comments INFORMATION SOURCE (unrecogn ized section and content) DATE CREATED AUTHOR 10/14/2020 [facility] DATE CREATED AUTHOR AUTHOR'S ORGANIZ ATION 09/26/2021 [facility] DATE CREATED AUTHOR AUTHOR'S ORGANIZ ATION 12/30/2022 [facility] DATE CREATED AUTHOR AUTHOR'S ORGANIZ ATION 08/03/2023 [facility] DATE CREATED AUTHOR AUTHOR'S ORGANIZ ATION 08/07/2023 [facility] DATE CREATED AUTHOR AUTHOR'S ORGANIZ ATION 01/09/2025 [facility] DATE CREATED AUTHOR AUTHOR'S ORGANIZ ATION 06/03/2025 [facility] EPIC Reason for Visit (unrecogniz ed section and content) StatusReasonSpecialtyDiagnoses / ProceduresReferred By ContactReferred To ContactClosedRadiology Diagnoses Frequent UTI Procedures US RENAL COMPLETE Lorena Ricks, CLINICAL SAFETY SPECIALIST - STRATEGIC ANALYST [address] [place] [address] ReasonCommentsGynecologic ExamReasonCommentsAmenorrheaReasonCommentsRoutine VisitReasonCommentsRoutine VisitSTI Screening Care Teams (unrecognized sec tion and content) Team MemberRelationshipSpecialtyStart DateEnd Date Ynes Rodriguez, CLINICAL SAFETY SPECIALIST - STRATEGIC ANALYST [address] [place] [address] PCP - GeneralFamily Nurse Qegvikatmcbt80/12/20Team MemberRelationshipSpecialty Start DateEnd Date Ynes Rodriguez, CLINICAL SAFETY SPECIALIST - STRATEGIC ANALYST [address] [facility] [address] PCP - GeneralFamily Nurse Ywlqdgvadfbh79/12/20Team MemberRelationshipSpecialty Start DateEnd Date Ynes Rodriguez, CLINICAL SAFETY SPECIALIST - STRATEGIC ANALYST [address] [place] [address] PCP - GeneralFamily Nurse Practitioner08/02/22Team MemberRelationshipSpecialty Start DateEnd Date Ynes Rodriguez, CLINICAL SAFETY SPECIALIST - STRATEGIC ANALYST [address] [place] [address] PCP - GeneralFamily Nurse Practitioner08/02/22Team MemberRelationshipSpecialty Start DateEnd Date Ynes Rodriguez, CLINICAL SAFETY SPECIALIST - STRATEGIC ANALYST [address] [place] [address] PCP - GeneralFamily Nurse Practitioner08/02/22 FOR RECORDS [...] THE PRIMARY CLINICAL RECORDS. [facility] [employer] [facility]. provides no warranty or guarantee of the accuracy or completeness of information in this document.
--- OUTSIDE RECORDS SUMMARY | 2025-06-09 05:42 | XMS_ITS | Encounter Summary ---
Author Organization [facility] Address [address] [place] [address] Care Team Providers Care Potable Water Treatment Operator Name Role Phone Unavailable Primary Care Provider Unavailabl e Encounter Details DateTypeDepartmentCare Team (Latest Contact Info)Mwbxmssmloa01/10/2025Telephone [facility] [address] [place] [address] [place] [address] Jo Ann Isabel LPN Social History Tobacco UseTypesPacks/DayYears UsedDateSmoking Tobacco: NeverSmokeless Tobacco: NeverAlcohol UseStandard Drinks/WeekCommentsNever0 (1 standard drink = 0.6 oz pure alcohol)Estimated Date of PwglqszgBtycxwatGaz84/01/2025Based on last menstrual period of 09/16/2024Sex and Gender InformationValueDate Recorded Sex Assigned at BirthNot on fileLegal BuqOvbxxc85/15/2023 11:47 PM EDTGender IdentityNot on fileSexual OrientationNot on filedocumented as of this encounter Miscellaneous Notes * Telephone Encounter - Jo Ann Isabel LPN - 06/02/2025 4:33 PM EST 2:35pm 06/02/25 [facility]el[facility] from [facility] called an LMOM inquiring about dosage [...] Plan of Treatment DateTypeDepartmentCare Team (Latest Contact Info)Fzxclwsayop41/05/2026 4:00 PM ESTOffice Visit [facility] [address] [phone] Mukul Foy, [address] [place] [address] documented as of this encounter Goals GoalPatient Goal TypeAssociated ProblemsRecent ProgressPatient-Stated?Author Reminders Care PlanOB RemindersNoOpen Scheduling, Backgrounddocumented as of this encounter Visit Diagnoses Not on filedocumented in this encounter Additional Health Concerns Active ProblemsNoted DateDiagnosed DateOB Amfysptxg01/09/2025 documented as of this encounter
--- OUTSIDE RECORDS SUMMARY | 2025-06-09 05:42 | XMS_ITS | Clinical Summary ---
Author Organization [facility] Address [address] [place], [place] [address] Care Team Providers Care Gum Scoring Machine Operator Name Role Phone Unavailable Primary Care Provider Unavailabl e Allergies No known active allergies Medications MedicationSigDispense QuantityRefillsLast FilledStart DateEnd DateStatus benzonatate (TESSALON PERLE) 100 mg capsule Take 1-2 capsules every 8 hours as needed. 60 capsule 4Active Active Problems No known active problems Social History Tobacco UseTypesPacks/DayYears UsedDateSmoking Tobacco: Never Assessed CommentsUnknownSex and Gender InformationValueDate RecordedSex Assigned at Not on fileLegal DjxSuzxph58/14/2024 10:20 AM ESTGender IdentityNot on file Sexual OrientationNot on file Plan of Treatment Health MaintenanceDue DateLast DoneCommentsPeds To Adult Transition Initial Pcybmqsssa89/17/2011Peds To Adult Transition Annual Hhnbdawsox14/17/2013nxiety Smwoqvqel46/17/2017Depression Utsaitttj40/17/2017HIV Tzyurilqe59/17/2017 Hepatitis C Jrxrropzq70/17/2017Cervical Cancer Lnledvxpa05/17/2020DTaP,Tdap,Td Vaccine (7 - Td or Tdap), 11/20/2003, 03/13/2000, Additional history existsCovid-19 Vaccine ( season)/02/2021, 12/07/2020Influenza Vaccine (#1)2025Hepatitis B VaccineCompleted 06/09/1999, 1998, 1998HPV SkioztcPrkzzitiz29/28/2018, 05/01/2017, 02/24/[address] [facility] Address: [address] [place] [address]
--- OUTSIDE RECORDS SUMMARY | 2025-06-09 05:42 | XMS_ITS | Encounter Summary ---
Author Organization [facility] Address [address] [place] [address] Care Team Providers Care Hspt Tutor Name Role Phone Unavailable Primary Care Provider Unavailabl e Encounter Details DateTypeDepartmentCare Team (Latest Contact Info)Vfddtkeqvyj00/20/2025linisync Result Encounter [facility] External Department Unsolicited Mukul Foy, DO [address] [place], [place] [address] Social History Tobacco UseTypesPacks/DayYears UsedDateSmoking Tobacco: NeverSmokeless Tobacco: NeverAlcohol UseStandard Drinks/WeekCommentsNever0 (1 standard drink = 0.6 oz pure alcohol)Estimated Date of QpexrreeZbwssuhtScz14/01/2025Based on last menstrual period of 09/16/2024Sex and Gender InformationValueDate Recorded Sex Assigned at BirthNot on fileLegal LpdGtqkyp22/15/2023 11:47 PM EDTGender IdentityNot on fileSexual OrientationNot on filedocumented as of this encounter Plan of Treatment DateTypeDepartmentCare Team (Latest Contact Info)Cdvdjwpouda63/05/2026 4:00 PM ESTOffice Visit [facility] [place] [facility] [address] [place] [phone] Mukul Foy DO [address] [place] [address] documented as of this encounter Goals GoalPatient Goal TypeAssociated ProblemsRecent ProgressPatient-Stated?Author Reminders Care PlanOB RemindersNoOpen Scheduling, Backgrounddocumented as of this encounter Procedures Procedure NamePriorityDate/TimeAssociated DiagnosisCommentsURINE CULTURE, IGAGFBXClgnkgb59/20/2025 9:55 AM EDT [facility]A (CLEAN/CATCH) TERMINAL CLERK/MICRO IF IND.Ehdtpjx5905/12/2025 9:55 AM EDT documented in this encounter Results * URINE CULTURE, ROUTINE (05/12/2025 9:55 AM EDT)ComponentValueRef RangeTest MethodAnalysis TimePerformed AtPathologist SignatureURINE CULTURE, ROUTINE ??Urine Culture, Routine TBHURINE CULTURE, ROUTINEMixed urogenital floraTBHURINE CULTURE, UVXTBAE09,000- 25,000 colony forming units per mLTBHURINE CULTURE, ROUTINEPerformed at: [facility] HospitalTBHURINE CULTURE, [id number] [place], [place] [id number] URINE CULTURE, ROUTINELab Director: Elian Mccray PhD, Phone: [phone] Specimen (Source)Anatomical Location / LateralityCollection Method / Volume Collection TimeReceived Time05/12/2025 9:55 AM EDT1 10:35 AM EDT Narrative [facility] - 05/13/2025 11:10 PM EDT Authorizing ProviderResult TypeResult StatusCorey Law DOLAB BLOOD ORDERABLES Final ResultPerforming OrganizationAddressCity/State/ZIP CodePhone Number [facility] TB * (ABNORMAL) [facility] UA (CLEAN/CATCH) TERMINAL CLERK/MICRO IF IND. (05/12/2025 9:55 AM EDT) ComponentValueRef [...] DOCLINISYNCFinal Result Performing OrganizationAddressCity/State/ZIP CodePhone Number [facility] documented in this encounter Visit Diagnoses Not on filedocumented in this encounter Additional Health Concerns Active ProblemsNoted DateDiagnosed DateOB Ovgvcasfg92/09/2025 documented as of this encounter
--- OUTSIDE RECORDS SUMMARY | 2025-06-09 05:42 | XMS_ITS | Encounter Summary ---
Author Organization [facility] Address [address] [place] [address] Care Team Providers Care Recreational Counselor Name Role Phone Unavailable Primary Care Provider Unavailabl e Encounter Details DateTypeDepartmentCare Team (Latest Contact Info)Awnwcxxwedj01/16/2025linisync Result Encounter [facility] External Department Unsolicited Britt Foy, DO [address] [place], [place] [phone] Social History Tobacco UseTypesPacks/DayYears UsedDateSmoking Tobacco: NeverSmokeless Tobacco: NeverAlcohol UseStandard Drinks/WeekCommentsNever0 (1 standard drink = 0.6 oz pure alcohol)Estimated Date of VcbadwqyZcrmsyxjNux44/01/2025Based on last menstrual period of 09/16/2024Sex and Gender InformationValueDate Recorded Sex Assigned at BirthNot on fileLegal BseUxutjz96/15/2023 11:47 PM EDTGender IdentityNot on fileSexual OrientationNot on filedocumented as of this encounter Plan of Treatment DateTypeDepartmentCare Team (Latest Contact Info)Ntwcqinjhgx63/05/2026 4:00 PM ESTOffice Visit [facility] [place] [facility] [address] [place] [phone] Britt Foy DO [address] [place] [address] documented as of this encounter Goals GoalPatient Goal TypeAssociated ProblemsRecent ProgressPatient-Stated?Author Reminders Care PlanOB RemindersNoOpen Scheduling, Backgrounddocumented as of this encounter Procedures Procedure NamePriorityDate/TimeAssociated DiagnosisCommentsUS OB BPP W NON-PBFHDV8705/08/2025 12:28 AM EDT documented in this encounter Results * US OB BPP W NON-STRESS (05/08/2025 12:28 AM EDT)Anatomical Region LateralityModalityOtherSpecimen (Source)Anatomical Location / Laterality Collection Method / VolumeCollection TimeReceived Time05/08/2025 12:28 AM EDT Narrative 05/08/2025 12:30 AM EDT [facility] ?[address] ? [place] [address] ? Ultrasound Report ? Signed Patient: VINNY HERRERA ?MR#: [id number] : 2000 ?Acct:[id number] Age/Sex: 24 / F ?ADM Date: 05/07/25 Loc: US Attending Dr: Britt Foy D.O. Ordering Physician: Britt Foy D.O. Date of Service: 05/07/25 Procedure(s): US OB BPP w non-stress Accession Number(s): [id number] cc: Britt Foy D.O.; Ynes Mistry TEST ENGINEERING TECHNICIAN ? [facility] ? [address] [place] [address] ? [place] [address] ? Patient Name: VINNY HERRERA MRN: [id number] ? date: 2000 ?Sex: F Assigned Patient Location: Current Patient Location: Accession/Order Number: [id number] Exam Date: 05/07/2025 ??16:45 ?Report Date: 05/08/2025 [...] Yepez M.D. ??05/08/2025 12:28 AM Dictation Location: [employer] Electronically authenticated by: [id number] ??Y ?? Date: 05/08/2025 ??00:28 Dictated By: ?Pavel Yepez M.D. Signed By: ?05/08/25 0030 DD/ 0028 TD/TT: ? Senior Officer: Procedure Note Radiology, Radiologist, - 06/03/2025 [place] [address] Ultrasound Report Signed Patient: VINNY HERRERA CMR#: [id number] : 2000Acct:[id number] Age/Sex: 24 / FADM Date: 05/07/25 Loc: US Attending Dr: Britt Foy D.O. Ordering Physician: Britt Foy D.O. Date of Service: 05/07/25 Procedure(s): US OB BPP w non-stress Accession Number(s): [id number] cc: Britt Foy D.O.; Ynes Mistry NP The [place] [id number] Patient Name: VINNY HERRERA MRN: [facility]:[id number] date: 2000 Sex: F Assigned Patient Location: US Current Patient Location: Accession/Order Number: [id number] Exam Date: 05/07/2025 16:45 Report Date: 05/08/2025 00:28 At the request of: BIRTT FOY DO Procedure: US OB BPP w [...] Yepez M.D. 05/08/2025 12:28 AM Dictation Location: [facility] Electronically authenticated by: [id number] Y Date: 500:28 Dictated By: Pavel Yepez M.D. Signed By:05/08/25 0030 DD/ 0028 TD/TT: Senior Officer: Authorizing ProviderResult TypeResult StatusCorey Law DOCLINISYNC IMAGINGFinal Result documented in this encounter Visit Diagnoses Not on filedocumented in this encounter Additional Health Concerns Active ProblemsNoted DateDiagnosed DateOB Eozaqhlaz30/09/2025 documented as of this encounter
--- OUTSIDE RECORDS SUMMARY | 2025-06-09 05:42 | XMS_ITS | Encounter Summary ---
Author Organization [facility] Address [address] [place] [address] Care Team Providers Care Sock Liner Name Role Phone Unavailable Primary Care Provider Unavailabl e Encounter Details DateTypeDepartmentCare Team (Latest Contact Info)Alaujzcursg89/13/2025Clinisync Result Encounter [facility] External Department Unsolicited Britt Foy, DO [address] [place], [place] [phone] Social History Tobacco UseTypesPacks/DayYears UsedDateSmoking Tobacco: NeverSmokeless Tobacco: NeverAlcohol UseStandard Drinks/WeekCommentsNever0 (1 standard drink = 0.6 oz pure alcohol)Estimated Date of NrntnkarZxgomlvqZhc29/01/2025Based on last menstrual period of 09/16/2024Sex and Gender InformationValueDate Recorded Sex Assigned at BirthNot on fileLegal RmbPnrbrw45/15/2023 11:47 PM EDTGender IdentityNot on fileSexual OrientationNot on filedocumented as of this encounter Plan of Treatment DateTypeDepartmentCare Team (Latest Contact Info)Jdkiqkvtbvs29/05/2026 4:00 PM ESTOffice Visit [facility] [place] [facility] [address] [place] [phone] Britt Foy DO [address] [place] [address] documented as of this encounter Goals GoalPatient Goal TypeAssociated ProblemsRecent ProgressPatient-Stated?Author Reminders Care PlanOB RemindersNoOpen Scheduling, Backgrounddocumented as of this encounter Procedures Procedure NamePriorityDate/TimeAssociated DiagnosisCommentsUS OB BPP W NON-AFBDBR6906/05/2025 8:26 AM EST documented in this encounter Results * US OB BPP W NON-STRESS (06/05/2025 8:26 AM EST)Anatomical Region LateralityModalityOtherSpecimen (Source)Anatomical Location / Laterality Collection Method / VolumeCollection TimeReceived Time06/05/2025 8:26 AM EST Narrative 06/05/2025 8:28 AM EST [facility] ?[address] ? [place] [address] ? Ultrasound Report ? Signed ? Patient: VINNY HERRERA ?MR#: [id number] ?? : 2000 ?Acct:[id number] ?? Age/Sex: 24 / F ?ADM Date: 06/04/25 ?? Loc: US ? Attending Dr: Britt Foy D.O. ? Ordering Physician: Britt Foy D.O. ?? Date of Service: 06/04/25 ?? Procedure(s): US OB BPP w non-stress ?? Accession Number(s): [id number] ? cc: Britt Foy D.O.; Ynes Mistry TWISTER OPERATOR ? [facility] ? [address] [facility] ? [place] [address] ? Patient Name: ?? VINNY HERRERA ? MRN: [facility]:[id number] ? date: 2000 ?Sex: F ?? Assigned Patient Location: [facility] ?? Current Patient Location: ? Accession/Order Number: [id number] ?? Exam Date: 06/04/2025 ??16:09 ?Report Date: 06/05/2025 ??08:26 ? At the request of: ?? BRITT ??LAW ??DO ? Procedure: ??US OB BPP w non-stress ? BIOPHYSICAL PROFILE: ? CLINICAL INFORMATION: THIRD TRIMESTER Z34.93 ? COMPARISON: 05/28/2025 ? There is a single live intrauterine gestation in cephalic presentation. ??The ?? reported gestational age is 37 weeks 2 days. ??The heart rate measures ?? 145 beats per minute. ? FINDINGS: ? TONE: [...] 2 cm ? [Y] ? 2/2 ?JAMAL: 13.6 cm ? Total score: ? 8/8 ? US/US OB BPP w non-stress ?? IMPRESSION: ? NORMAL BIOPHYSICAL PROFILE ? Impression dictated by: Criselda Flores M.D. ??06/05/2025 8:26 AM ? Dictation Location: [facility]02 ? Electronically authenticated by: [id number] ??Y ?? Date: 06/05/2025 ??08:26 ? Dictated By: ?Criselda Flores M.D. ? Signed By: ?11/13/25 0828 ? DD/ 0826 ? TD/TT: ? Box Blank Machine Operator Helper: Procedure Note Radiology, Radiologist, - 06/05/2025 [place] [address] Ultrasound Report Signed Patient: VINNY HERRERA CMR#: [id number] : 2000Acct:[id number] Age/Sex: 24 / FADM Date: 06/04/25 Loc: US Attending Dr: Britt Foy D.O. Ordering Physician: Britt Foy D.O. Date of Service: 06/04/25 Procedure(s): US OB BPP w non-stress Accession Number(s): [id number] cc: Britt Foy D.O.; Ynes Mistry TWISTER OPERATOR The [place] [id number] Patient Name: VINNY HERRERA MRN: [facility]:[id number] date: 2000 Sex: F Assigned Patient Location: [facility] Current Patient Location: Accession/Order Number: [id number] Exam Date: 06/04/2025 16:09 Report Date: 06/05/2025 08:26 At the request of: BRITT FOY DO Procedure: US OB BPP w non-stress BIOPHYSICAL PROFILE: CLINICAL INFORMATION: THIRD TRIMESTER Z34.93 COMPARISON: 05/28/2025 There is a single live intrauterine gestation in cephalic presentation.The reported gestational age is 37 weeks 2 days. The heart ratemeasures 145 beats per minute. FINDINGS: TONE: 1 or [...] greater than 2 cm [Y] 2/2 JAMAL: 13.6 cm Total score: 8/8 US/US OB BPP w non-stress IMPRESSION: NORMAL BIOPHYSICAL PROFILE Impression dictated by: Criselda Flores M.D. 06/05/2025 8:26 AM Dictation Location: [place] [address] Electronically authenticated by: [id number] Y Date: 508:26 Dictated By: Criselda Flores M.D. Signed By:06/05/25827 DD/ 5 TD/TT: Box Blank Machine Operator Helper: Authorizing ProviderResult TypeResult StatusCorey Law DOCLINISYNC IMAGINGFinal Result documented in this encounter Visit Diagnoses Not on filedocumented in this encounter Additional Health Concerns Active ProblemsNoted DateDiagnosed DateOB Cfcnxvqfz96/09/2025 documented as of this encounter
--- OUTSIDE RECORDS SUMMARY | 2025-06-09 05:42 | XMS_ITS | Encounter Summary ---
Author Organization [facility] Address [address] [place] [address] Care Team Providers Care Transportation Maintenance Worker Name Role Phone Unavailable Primary Care Provider Unavailabl e Encounter Details DateTypeDepartmentCare Team (Latest Contact Info)Ghxjuuexxpg83/05/2025linisync Result Encounter [facility] External Department Unsolicited Regina Barton, JOSEPH [address] [place], [facility] Social History Tobacco UseTypesPacks/DayYears UsedDateSmoking Tobacco: NeverSmokeless Tobacco: NeverAlcohol UseStandard Drinks/WeekCommentsNever0 (1 standard drink = 0.6 oz pure alcohol)Estimated Date of ZvexyffbPfjztfdtFfd79/01/2025Based on last menstrual period of 09/16/2024Sex and Gender InformationValueDate Recorded Sex Assigned at BirthNot on fileLegal WwwGbjuul15/15/2023 11:47 PM EDTGender IdentityNot on fileSexual OrientationNot on filedocumented as of this encounter Plan of Treatment DateTypeDepartmentCare Team (Latest Contact Info)Qbmtgjzqeae62/05/2026 4:00 PM ESTOffice Visit [facility] [place] OBGYAriadne [address] [place] [address] Mukul Foy DO [address] [place], [facility] documented as of this encounter Goals GoalPatient Goal TypeAssociated ProblemsRecent ProgressPatient-Stated?Author Reminders Care PlanOB RemindersNoOpen Scheduling, Backgrounddocumented as of this encounter Procedures Procedure NamePriorityDate/TimeAssociated DiagnosisCommentsSTREP GP B CULTURE+MIGVHyjrwja90/05/2025 2:40 PM EST documented in this encounter [...] is noted.TBHSTREP GP B CULTURE+RFLX Performed at: [facility]+[id number] [place], [place] [id number] GP B CULTURE+RFLXLab Director: Elian Mccray PhD, Phone: [phone] (Source)Anatomical Location / Laterality Collection Method / VolumeCollection TimeReceived Time05/28/2025 2:40 PM EST 05/28/2025 9:05 PM EST Narrative [facility] - 06/02/2025 5:09 PM EST Authorizing ProviderResult TypeResult StatusA[facility] BLOOD ORDERABLES Final ResultPerforming OrganizationAddressCity/State/ZIP CodePhone Number [facility] documented in this encounter Visit Diagnoses Not on filedocumented in this encounter Additional Health Concerns Active ProblemsNoted DateDiagnosed DateOB Tmwwgennv67/09/2025 documented as of this encounter
--- OUTSIDE RECORDS SUMMARY | 2025-06-09 05:42 | XMS_ITS | Encounter Summary ---
Author Organization [facility] Address [address] [place] [address] Care Team Providers Care Pipelines Manager Name Role Phone Unavailable Primary Care Provider Unavailabl e Encounter Details DateTypeDepartmentCare Team (Latest Contact Info)Yoaxxyvwxue68/22/2025linisync Result Encounter NOMS External Department Unsolicited Britt Foy, DO [address] [place], [place] [address] Social History Tobacco UseTypesPacks/DayYears UsedDateSmoking Tobacco: NeverSmokeless Tobacco: NeverAlcohol UseStandard Drinks/WeekCommentsNever0 (1 standard drink = 0.6 oz pure alcohol)Estimated Date of CzovqkonZmkdrgliLve37/01/2025Based on last menstrual period of 09/16/2024Sex and Gender InformationValueDate Recorded Sex Assigned at BirthNot on fileLegal YpyWegomo16/15/2023 11:47 PM EDTGender IdentityNot on fileSexual OrientationNot on filedocumented as of this encounter Plan of Treatment DateTypeDepartmentCare Team (Latest Contact Info)Ixjhzmmkeve74/05/2026 4:00 PM ESTOffice Visit [facility] [place] [facility] [address] [place] [phone] Britt Foy, [address] [place] [address] documented as of this encounter Goals GoalPatient Goal TypeAssociated ProblemsRecent ProgressPatient-Stated?Author Reminders Care PlanOB RemindersNoOpen Scheduling, Backgrounddocumented as of this encounter Procedures Procedure NamePriorityDate/TimeAssociated DiagnosisCommentsUS OB BPP W NON-OUKQIR1505/14/2025 10:20 PM EDT documented in this encounter Results * US OB BPP W NON-STRESS (05/14/2025 10:20 PM EDT)Anatomical Region LateralityModalityOtherSpecimen (Source)Anatomical Location / Laterality Collection Method / VolumeCollection TimeReceived Time05/14/2025 10:20 PM EDT Narrative 05/14/2025 10:23 PM EDT [facility] ?[address] ? [place] [address] ? Ultrasound Report ? Signed Patient: VINNY HERRERA ?MR#: [id number] : 2000 ?Acct:[id number] Age/Sex: 24 / F ?ADM Date: 05/14/25 Loc: US Attending Dr: Britt Foy D.O. Ordering Physician: Britt Foy D.O. Date of Service: 05/14/25 Procedure(s): OB BPP w non-stress Accession Number(s): [id number] cc: Britt Foy D.O.; Ynes Mistry OAKES MACHINE OPERATOR ? [facility] ? [address] [place] [address] Street ? [place] [address] ? Patient Name: VINNY HERRERA MRN: [id number] ? date: 2000 ?Sex: F Assigned Patient Location: US Current Patient Location: [facility] Accession/Order Number: [id number] Exam Date: 05/14/2025 ??16:00 ?Report Date: 05/14/2025 ??22:20 At the request of: BRITT ??LAW ??DO Procedure: ??US OB BPP w non-stress Ultrasound biophysical profile INDICATION: Gestational diabetes COMPARISON: 05/07/2025 FINDINGS/IMPRESSION:: Fetus cephalic position. ?? 8/8 score biophysical profile. ?? heart rate 1:30 beats per minutes. ??JAMAL 17.4 cm . Impression dictated by: hCevy Moreland M.D. ??05/14/2025 10:20 PM Dictation Location: [facility] Electronically authenticated by: [id number] ??Y ?? Date: 05/14/2025 ??22:20 Dictated By: ?Chevy Moreland M.D. Signed By: ?05/14/252222 DD/ 19 TD/TT: ? Brick Paver: Procedure Note Radiology, Radiologist, - 06/03/2025 [place] [address] Ultrasound Report Signed Patient: VINNY HERRERA CMR#: [id number] : 2000Acct:[id number] Age/Sex: 24 / FADM Date: 05/14/25 Loc: US Attending Dr: Britt Foy D.O. Ordering Physician: Britt Foy D.O. Date of Service: 05/14/25 Procedure(s): US OB BPP w non-stress Accession Number(s): [id number] cc: Britt Foy D.O.; Ynes Mistry OAKES MACHINE OPERATOR The [place] [address] Patient Name: VINNY HERRERA MRN: [facility]:[id number] date: 2000 Sex: F Assigned Patient Location: Current Patient Location: [facility] Accession/Order Number: [id number] Exam Date: 05/14/2025 16:00 Report Date: 05/14/2025 22:20 At the request of: BRITT FOY DO Procedure: US OB BPP w non-stress Ultrasound biophysical profile INDICATION: Gestational diabetes COMPARISON: 05/07/2025 FINDINGS/IMPRESSION:: Fetus cephalic position. 8/8 score biophysical profile. heart rate 1:30 beats per minutes. JAMAL 17.4 cm . Impression dictated by: Chevy Moreland M.D. 05/14/2025 10:20 PM Dictation Location: [place] [address] Electronically authenticated by: [id number] Y Date: 2:20 Dictated By: Chevy Moreland M.D. Signed By:05/14/252222 DD/ 19 TD/TT: Brick Paver: Authorizing ProviderResult TypeResult StatusCorey Law DOCLINISYNC IMAGINGFinal Result documented in this encounter Visit Diagnoses Not on filedocumented in this encounter Additional Health Concerns Active ProblemsNoted DateDiagnosed DateOB Cebbsqxdk79/09/2025 documented as of this encounter
--- OUTSIDE RECORDS SUMMARY | 2025-06-09 05:43 | XMS_ITS | Clinical Summary ---
Author Organization [facility] Address [address], [address] [place] [address] Care Team Providers Care Information Security Officer Name Role Phone Ynes Mistry DREDGE PUMP OPERATOR - DIRECTOR OF REHABILITATION AND WELLNESS Primary Care Provide r Allergies No known [...] [address] 200 mg vaginally sqmlmox42/26/2025Active sertraline (ZOLOFT) 25 MG tablet TAKE 1 TABLET BY MOUTH EVERY DAY 30 tablet 5Active sertraline (ZOLOFT) 25 MG tablet Take 1 tablet by mouth daily 30 tablet Discontinued Active Problems ProblemNoted DateDiagnosed DateGastroesophageal reflux pcwfgfb0911/12/2024Other hyperlipidemia [E78.49]06/04/20242421Rpcjfcu34/12/2024Hepatic /14/2024 Elevated liver lteyjkr7203/01/2024Mixed fgxxlgiielzpsw43/30/2024Iron deficiency sqhsdz3710/25/2023Gestational diabetes mellitus (GDM) affecting second 07/24/20225440Wfypqlf20/07/2020Seasonal allergic rnffqsoy08/07/2020Other fatigue 05/02/2020 Resolved Problems ProblemNoted DateDiagnosed DateResolved DateSore glehum45503/5Acne /Irregular tsbfze11/Frequent UTI11/30/2020 02/20/2024yspareunia in tetzyu63/Insomnia due to other mental zgzxynwi11 Encounters DateTypeDepartmentCare YczqAmbsbrgcjqf53/13/2025bstract [address] [place] [address] Ynes Mistry, DREDGE PUMP OPERATOR - DIRECTOR OF REHABILITATION AND WELLNESS 06/02/2025Orders Only [address] [place] [address] ProviderYuval MD 05/28/2025Refill [address] [place] [address] Ynes Mistry, DREDGE PUMP OPERATOR - DIRECTOR OF REHABILITATION AND WELLNESS Medication Ghvnvd7305/22/2025Orders Only [address] [place] [address] Ynes Mistry, DREDGE PUMP OPERATOR - DIRECTOR OF REHABILITATION AND WELLNESS 05/13/2025Orders Only [address] [place] [address] Yuval Lobato MD 05/01/2025Orders Only [address] [place] [address] ProviderYuval MD from Last 3 Months Immunizations ImmunizationAdministration DatesNext DueCOVID-19, Inactive, PFIZER PURPLE top, DILUTE for use, (age 12 y+)12/29/2020,6641WFpA10/29/2004,03/13/2000, 03/12/1999,01/18/1999,1998DTaP, INFANRIX, (age 6w-6y), IM, 0.5mL11/20/2003 ,03/13/2000,03/12/1999,01/18/1999,1998HPV [...] (1 standard drink = 0.6 oz pure alcohol)[employer] UtilitiesAnswerDate RecordedIn the past 12 months has the electric, gas, oil, or water company threatened to shut off services in your home?No10/07/2024Overall Financial Resource Strain (CARDIA)AnswerDate Recorded How hard is it for you to pay for the very basics like food, housing, medical care, and heating?Not hard at all07/13/2023HQ-2AnswerDate RecordedPHQ-9 Total Faxrn329Hunger Vital SignAnswerDate RecordedWithin the past 12 months, [...] homeless or living in a half-way (including now)?10/07/2024Food InsecurityAnswerDate RecordedWithin the past 12 months, you worried that your food would run out before you got the money to buymore.Within the past 12 months, the food you bought just didn't last and you didn't have money to get more.CommentsNoSex and Gender InformationValueDate RecordedSex Assigned at DppiuKuiors35/28/2024 8:24 PM EDTLegal WagVxyfec15/10/2013 3:31 PM ESTGender EdcnfrezXsscef62/28/2024 8:24 PM EDTSexual OrientationNot on file Last Filed Vital Signs Vital SignReadingTime TakenCommentsBlood Nnzofhis965/7204 11:39 AM EDT Qvdhy0923 11:39 AM CQUMloyvfnmhjk41.1 ??C (96.9 ??F)11/12/2024 11:39 AM EDTRespiratory Nfvj320610/07/2024 1:43 PM EDTOxygen Xuafacjunn67%11/12/2024 11:39 AM EDTInhaled Oxygen Concentration--Onqcgs44.1 kg (203 lb)11/12/2024 11:39 AM GUGGbvebg234.1 cm (5' 5 )10/07/2024 1:43 PM EDTBody Mass Index33.78010/07/2024 1:43 PM EDT Plan of Treatment Health MaintenanceDue DateLast DoneCommentsDTaP/Tdap/Td vaccine (7 - Td or Tdap) /, 11/20/2003, 11/20/2003, Additional history existsFlu vaccine (#1)5COVID-19 Vaccine ( season)506/02/2021, 1Depression Fmtpzn24601/, 08/07/2024Pap smear07/15/2027 07/15/2024, 07/15/2023, 07/05/2023, Additional history existsHepatitis B vaccine Jpsakzlkl96/17/1999, 1998, 1998Hib csrgompLkvhnkcge04/21/2000, 03/12/1999, 01/18/1999, Additional history existsPolio vaccineCompleted 11/20/2003, 03/13/2000, 01/18/1999, Additional history existsVaricella vaccine Ezykfibgq48/20/2011, 12/22/1999Hepatitis A tlzuvqmWtjhmiauo08/27/2012, 08/19/2011, 02/09/2011, Additional history existsMeningococcal (ACWY) vaccine Daipukyyw12/19/2016, 2014, 01/12/2011HPV glqvuuvOfgosrowc28/28/2018, 05/01/2017, 02/24/2017HIV ilahmnKrlgkvxit96/12/2020Chlamydia/GC screen Smezlhpsjnkl05/29/2021, 03/03/2020, 02/21/2019, Additional history exists Hepatitis C pbojlhDglcydjez65/27/2024Depression MonitoringDiscontinued 08/07/2024, 08/07/20240150HxgciqEryqjaunblfn01/27/2025, 05/20/2024, 02/16/2024, Additional history existsMeningococcal B vaccineAged OutNo longer eligible based on patient's age to complete this topicPneumococcal 0-49 years VaccineAged Out No longer eligible based on patient's age to complete this topic Procedures Procedure NamePriorityDate/TimeAssociated DiagnosisCommentsCHG BIOPHYSICAL PROFILE NON-STRESS VMXFHJFJhulixk57/05/2025 4:53 PM ESTBIOPHYSICAL PROFILE Qziwzks19/29/2025CHG BIOPHYSICAL PROFILE NON-STRESS TESTINGRoutine 05/07/2025 3:54 PM EDTBIOPHYSICAL PROFILE W/GXJKeqlrrb58/08/2025 11:39 AM EDTHM PAP SHZQIDweokwk60/23/2024 LIPID VOBGPYcoxgte22/28/2024 9:59 AM EDT Mixed hyperlipidemia HEPATITIS C WZHENELMTsswrsu43/27/2024 8:25 AM EDT Need for hepatitis C screening test Wellness examination C.TRACHOMATIS N.GONORRHOEAE DNA, XSOIIPtjgexg59/29/2021 1:57 PM EDT Frequent UTI HIV PEYALXQrokeeb94/12/2020 3:27 PM EDT Encounter for screening for [...] StatusHistorical Provider MDOB GYNE ORDERABLESFinal Result * BIOPHYSICAL PROFILE W/NST [...] RangeTest MethodAnalysis TimePerformed AtPathologist SignatureHepatitis C AbNONREACTIVE EFEFTXXXPTB70/ 8:25 AM EDTMERCY LABORATORIESComment: ? The hepatitis [...] / Volume Collection TimeReceived TimeBloodBLOOD SPECIMEN / Zocyszh7210/18/2023 8:25 AM EDT 10/18/2023 8:26 AM EDT Narrative Authorizing ProviderResult TypeResult StatusHanjose raul Mistry DREDGE PUMP OPERATOR - CNPIMMUNOLOGY ORDERABLESFinal ResultPerforming OrganizationAddressCity/State/[facility] CodePhone Number [facility] [address] [place] [address], [facility] [phone] [facility] [address] [place], [place] [address] [phone] * C.trachomatis N.gonorrhoeae DNA, Urine (11/19/2020 1:57 PM EDT)ComponentValue Ref RangeTest MethodAnalysis TimePerformed AtPathologist SignatureSpecimen Description.URINE11/19/2020 1:57 PM EDTMERCY LABORATORIESC. trachomatis DNA ,GypyqDYOEGJDDHULYCXTW64/29/2021 1:57 PM EDTMERCY LABORATORIESComment: CHLAMYDIA TRACHOMATIS DNA [...] alternative nucleic acid target. N. gonorrhoeae DNA, PxumjBYBMVQZWUMAERPYS14/29/2021 1:57 PM EDTMERCY LABORATORIESComment: NEISSERIA GONORRHOEAE DNA [...] / LateralityCollection Method / Volume Collection TimeReceived FetwCkwyx80/29/2021 1:57 PM EDT11/19/2020 1:57 PM EDT Narrative Authorizing ProviderResult TypeResult StatusBesilvestre Ricks DREDGE PUMP OPERATOR - DIRECTOR OF REHABILITATION AND WELLNESS MICROBIOLOGY - GENERAL ORDERABLESFinal ResultPerforming OrganizationAddress City/State/ZIP CodePhone Number [facility] [address] [place] [address], [facility] [phone] [phone] * HIV Screen (05/04/2020 3:27 PM EDT)ComponentValueRef RangeTest MethodAnalysis TimePerformed AtPathologist SignatureHIV Ag/AeMDABLHFYUKVPSDLPWMMVNG97/12/2020 3:27 PM EDTMERCY LABORATORIESComment: No laboratory evidence of HIV infection. ??If acute HIV infection is suspected, consider testing for HIV-1 RNA. Specimen (Source)Anatomical Location / LateralityCollection Method / Volume Collection TimeReceived TimeBLOOD SPECIMEN / Eyxjhlr1805/04/2020 3:27 PM EDT 05/04/2020 3:28 PM EDT Narrative Authorizing ProviderResult TypeResult StatusHanjose raul Dalila Fede DREDGE PUMP OPERATOR - CNPIMMUNOLOGY ORDERABLESFinal ResultPerforming OrganizationAddressMercy Health St[facility]/State/ZIP CodePhone Number [facility] [address] [place] [address], [facility] [phone] [phone] from Last 3 Months or Most Recently Relevant to Health Maintenance Insurance Care Teams Team MemberRelationshipSpecialtyStart DateEnd Date Ynes Mistry, DREDGE PUMP OPERATOR - DIRECTOR OF REHABILITATION AND WELLNESS [address] [place] [address] Dr ER[address]Z [address] [place], [place] [id number] PCP - GeneralFamily Nurse Practitioner08/02/22
--- OUTSIDE RECORDS SUMMARY | 2025-06-09 05:43 | XMS_ITS | Encounter Summary ---
Author Organization [facility] Address [address] [place] [address] Care Team Providers Care Adult Manager Name Role Phone Unavailable Primary Care Provider Unavailabl e Encounter Details DateTypeDepartmentCare Team (Latest Contact Info)Lpxjqkdpmgc65/10/2025bstract DIANE SANTO [address] [place] [address] Mukul Foy DO [address] [place] [address] Dr Melissa [place], [facility] Social History Tobacco UseTypesPacks/DayYears UsedDateSmoking Tobacco: NeverSmokeless Tobacco: NeverAlcohol UseStandard Drinks/WeekCommentsNever0 (1 standard drink = 0.6 oz pure alcohol)Estimated Date of ZsxcudfaAfokghoeImt46/01/2025Based on last menstrual period of 09/16/2024Sex and Gender InformationValueDate Recorded Sex Assigned at BirthNot on fileLegal UgfWvzmco90/15/2023 11:47 PM EDTGender IdentityNot on fileSexual OrientationNot on filedocumented as of this encounter Plan of Treatment DateTypeDepartmentCare Team (Latest Contact Info)Hnpwfmlfdrg71/05/2026 4:00 PM ESTOffice Visit DIANE SANTO [address] [place] [address] Mukul Foy, DO [address] [place] [address] documented as of this encounter Goals GoalPatient Goal TypeAssociated ProblemsRecent ProgressPatient-Stated?Author Reminders Care PlanOB RemindersNoOpen Scheduling, Backgrounddocumented as of this encounter Visit Diagnoses Not on filedocumented in this encounter Additional Health Concerns Active ProblemsNoted DateDiagnosed DateOB Aruhhoklw46/09/2025 documented as of this encounter
--- OUTSIDE RECORDS SUMMARY | 2025-06-09 05:43 | XMS_ITS | Encounter Summary ---
Author Organization [facility] Address [address], [address] [place] [address] Care Team Providers Care Desktop Support Specialist Name Role Phone Ynes Mistry RIM BUSTER - CONVEYOR OPERATOR Primary Care Provide r Encounter Details DateTypeDepartmentCare Team (Latest Contact Info)Mdsytyvhwrp62/13/2025bstract [facility] Primary Care [address] [place] [address] [address] [place] [address] Ynes Mistry, RIM BUSTER - CONVEYOR OPERATOR [address] [place] [phone] Social History Tobacco UseTypesPacks/DayYears UsedDateSmoking Tobacco: NeverSmokeless Tobacco: NeverAlcohol UseStandard Drinks/WeekCommentsNot Currently0 (1 standard drink = 0.6 oz pure alcohol)socialMARIETTA [facility] UtilitiesAnswerDate RecordedIn the past 12 months has the electric, gas, oil, or water company threatened to shut off services in your home?No10/07/2024Overall Financial Resource Strain (CARDIA)AnswerDate RecordedHow hard is it for you to pay for the very basics like food, housing, medical care, and heating?Not hard at all07/13/2023HQ-2AnswerDate RecordedPHQ-9 Total Mruvy186Hunger Vital SignAnswerDate RecordedWithin the past 12 months, [...] steady place to sleep or slept in legacy healther (including now)?No07/13/2023Housing Stability Vital SignAnswerDate RecordedIn the last 12 months, was there a time when you were not able to pay the mortgage or rent on time?No10/07/2024In the past 12 months, how many times have you moved where you were living? At any time in the past 12 months, were you homeless or living in a custodial (including now)?No10/07/2024Food InsecurityAnswerDate RecordedWithin the past 12 months, you worried that your food would run out before you got the money to buy more.Within the past 12 months, the food you bought just didn't last and you didn't have money to get more.CommentsNoSex and Gender InformationValueDate RecordedSex Assigned at JiwtjSxukeh52/28/2024 8:24 PM EDTLegal EwgGghofi47/10/2013 3:31 PM ESTGender BlxcjpwsFxxziv77/28/2024 8:24 PM EDTSexual OrientationNot on filedocumented as of this encounter Plan of Treatment Not on file documented as of this encounter Visit Diagnoses Not on filedocumented in this encounter Care Teams Team MemberRelationshipSpecialtyStart DateEnd Date Ynes Mistry, RIM BUSTER - CONVEYOR OPERATOR [address] [place], [place] [id number] PCP - GeneralFamily Nurse Practitioner08/02/22documented as of this encounter
--- OUTSIDE RECORDS SUMMARY | 2025-06-09 05:43 | XMS_ITS | Clinical Summary ---
Author Organization [facility] Healthcare Address [address] [place] [address] Care Team Providers Care Powerhouse Operator Name Role Phone Unavailable Primary Care Provider Unavailabl e Allergies No known active allergies Medications MedicationSigDispense QuantityRefillsLast FilledStart DateEnd DateStatus sertraline (Zoloft) 50 MG tablet Indications:Anxiety, generalizedTAKE 1 TABLET BY MOUTH EVERY DAY IN THE MORNING 30 tablet 304/5Active glucose blood test strip Indications:Gestational diabetes mellitus (GDM), antepartum, gestational diabetes method of control unspecified([facility])Use as instructed 100 each 1206//643147/6Active metFORMIN XR (Glucophage-XR) 500 MG 24 hr tablet Indications:Second trimester ([facility]),20 weeks gestation of ([facility])Take 2 tablets (1,000 mg) by mouth in the evening. Take with meals 60 tablet 507//458266/6Active pantoprazole (Protonix) 40 MG EC tablet Indications:23 weeks gestation of ([facility]),Elevated blood sugar level ,Gastroesophageal reflux disease without esophagitisTake 1 tablet (40 mg) by mouth in the morning. Take before meals. Do not crush, chew, or split. 30 tablet 1108//474526/6Active metoclopramide (Reglan) 10 MG tablet Indications:Gastroesophageal reflux disease without esophagitisTake 1 tablet (10 mg) by mouth in the morning and 1 tablet (10 mg) at noon and 1 tablet (10 mg) in the evening. Take before meals. Take 1 tablet by mouth 30 minutes prior to meals 3 times daily as needed for nausea. 90 tablet 5Active insulin pen needle 29G x 8mm misc Indications:Insulin controlled gestational diabetes mellitus (GDM) during , antepartum ([facility])Inject 1 each under the skin Daily 100 [...] Problems ProblemNoted DateDiagnosed Date23 weeks gestation of ([facility]) 02/26/2025Elevated blood sugar level02/26/2025bnormal glucose level01/13/2023 Mkflmzrne58/23/5366Aietbkmphqb35/23/2023Dyspareunia in iytkjg2311/30/2020Frequent UTI11/30/20206732Nfetexr45/07/2020Insomnia due to other mental cuyofhgw26/10/2020 Other uuoqguh5205/02/2020Estimated Date of XnijuplcDdvhviznQcg50/01/2025 Based on last menstrual period of 09/16/2024 Resolved Problems ProblemNoted DateDiagnosed DateResolved DateMissed ctrhek49 Encounters DateTypeDepartmentCare CidoZcjrejzmbhx04/13/2025linisync Result Encounter NOMS External Department Unsolicited Britt Foy DO 06/02/2025 1:10 PM ESTRoutine [facility] [address] [place] [address] Law, Britt, DO 37 weeks gestation of ([facility]); Third trimester ([facility]); Insulin controlled gestational diabetes mellitus (GDM) during , antepartum ([facility]); Gestational diabetes mellitus (GDM), antepartum, gestational diabetes method of control unspecified([facility])06/02/2025Telephone [facility] [place] [facility] [address] [place] [address] Jo Ann Isabel LPN 06/02/2025bstract [facility] [address] [place] [address] Britt Foy, DO 05/30/2025Telephone [facility] [address] [place] [address] Britt Foy, DO 05/29/2025Telephone [facility] [address] [place] [address] Britt Foy, DO 05/29/2025linisync Result Encounter NOMS External Department Unsolicited Britt Foy, DO 05/28/2025 2:30 PM ESTRoutine [facility] [place] [address] Regina Cummins PA Third trimester ([facility]); 36 weeks gestation of ([facility])05/28/2025 2:00 PM ESTAncillary Procedure [facility] [address] [place] [address] Insulin controlled gestational diabetes mellitus (GDM) during , antepartum ([facility])5Clinisync Result Encounter NOMS External Department Unsolicited Regina Cummins PA 05/21/2025linisync Result Encounter NOMS External Department Unsolicited Britt Foy, DO 05/14/2025 2:50 PM EDTRoutine [facility] [place] [address] Britt Foy, DO Third trimester ([facility]); 34 weeks gestation of ([facility]); Insulin controlled gestational diabetes mellitus (GDM) during , antepartum ([facility]); Gestational diabetes mellitus (GDM), antepartum, gestational diabetes method of control unspecified([facility])05/14/2025linisync Result Encounter NOMS External Department Unsolicited Britt Foy, DO 05/14/2025amboo flowsheet [facility] [address] [place] [address] [phone] Britt Foy, DO 05/12/2025linisync Result Encounter NOMS External Department Unsolicited Britt Foy, DO 05/08/2025linisync Result Encounter NOMS External Department Unsolicited Britt Foy, DO 05/02/2025bstract [facility] [address] [place] [address] [phone] Britt Foy, DO 04/30/2025 3:00 PM EDTRoutine [facility] [address] [place] [address] Tiffany Li, ASHWIN Third trimester ([facility]); 32 weeks gestation of ([facility])04/30/2025linisync Result Encounter NOMS External Department Unsolicited Britt Foy, DO 04/30/2025amboo flowsheet [facility] [address] [place] [address] Tiffany Li, ASHWIN 04/27/20257045Fipzjr80/23/2025bstract [facility] [place] [facility] [address] [place] [address] [phone] Britt Foy, DO 04/14/2025 3:20 PM EDTRoutine [facility] [place] [facility] [address] [place] [address] Regina Cummins PA Third trimester ([facility]); 30 weeks gestation of ([facility])04/14/2025amboo flowsheet [facility] [place] [facility] [address] [place] [address] Regina Cummins PA 04/14/20258491Qyhbgb70/15/2025Telephone [facility] [place] [facility] [address] [place] [address] Elizabeth Ware MA 04/05/2025linisync Result Encounter NOMS External Department Unsolicited Regina Cummins PA 04/05/2025linisync Result Encounter NOMS External Department Unsolicited Regina Cummins PA 04/03/2025 3:30 PM EDTRoutine [facility] [address] [place] [address] Regina Cummins PA 28 weeks gestation of ([facility]); Third trimester ([facility]); Dizziness; Gestational diabetes mellitus (GDM), antepartum, gestational diabetes method of control unspecified([facility]); History of miscarriage; Anemia, unspecified type; UTI fduityof83/11/2025amboo flowsheet [facility] [address] [place] [phone] Regina Cummins PA 04/02/2025Telephone [facility] [address] [place] [address] Suyapa Hazel LPN 04/01/20257414Lbeuzh75/21/2025bstract [facility] [address] [place] [address] Britt Foy DO 03/12/2025 3:50 PM EDTRoutine [facility] [address] [place] [address] Britt Foy DO 25 weeks gestation of ([facility]); Second trimester ([facility]); Gastroesophageal reflux disease without rcyzqizdwis87/20/2025amboo flowsheet DIANE SANTO [address] [place] [address] [place] [address] Britt Foy DO from Last 3 Months Family History RelationNameStatusCommentsDaughterAliveFatherAliveMotherAliveSisterAlive Social History Tobacco UseTypesPacks/DayYears UsedDateSmoking Tobacco: NeverSmokeless Tobacco: Never Tobacco Cessation:Counseling Given: Not Answered Alcohol UseStandard Drinks/WeekCommentsNever0 (1 standard drink = 0.6 oz pure alcohol)Estimated Date of BjsvbgipRurzwacvMsh83/01/2025ased on last menstrual period of 09/16/2024Sex and Gender InformationValueDate RecordedSex Assigned at BirthNot on fileLegal FxsRhxrem50/15/2023 11:47 PM EDTGender IdentityNot on fileSexual OrientationNot on file Last Filed Vital Signs Vital SignReadingTime TakenCommentsBlood Qdqqizjk265/80108/02/2024 1:22 PM EST Pulse--Temperature--Respiratory Rate--Oxygen Saturation--Inhaled Oxygen Concentration--Xefira079 kg (237 lb 12.8 oz)06/02/2025 1:22 PM XPHCulqvl595.6 cm (5' 6 )01/30/2023 12:12 PM EDTBody Mass Index38.38001/30/2023 12:12 PM EDT Plan of Treatment DateTypeDepartmentCare Team (Latest Contact Info)Pvmikprnujp57/05/2026 4:00 PM ESTOffice Visit DIANE SANTO [address] [place] [address] [place] [phone] Britt Foy DO [address] [place] [address] Dr [address] [place], [place] [phone] Health MaintenanceDue DateLast DoneCommentsCOVID-19 Vaccine (2024- season) /02/2021, 12/07/2020Influenza Vaccine (#1)2025Pneumococcal Vaccine: Pediatrics (0 to 5 Years) and At-Risk Patients (6 to 64 Years)Aged Out No longer eligible based on patient's age to complete this topic Goals GoalPatient Goal TypeAssociated ProblemsRecent ProgressPatient-Stated?Author Reminders Care PlanOB RemindersNoOpen Scheduling, Background Procedures Procedure NamePriorityDate/TimeAssociated DiagnosisCommentsUS OB BPP W NON-CGQQWU9506/05/2025 8:26 AM EST POCT URINALYSIS FCWLVYSHDmnrmzd08/10/2025 1:25 PM EST 37 weeks gestation of ([facility] Third trimester ([facility]) US OB BPP W NON-EWDCUZ8705/29/2025 10:10 AM EST POCT URINALYSIS HHBZKTKHOxrowcc87/05/2025 2:52 PM EST 36 weeks gestation of ([facility]) STREP GP B CULTURE+CWESNshrtvv31/05/2025 2:40 PM EST US OB FOLLOW UP TRANSABDOMINAL NGCPTHMSSjwzkml22/05/2025 2:26 PM EST Insulin controlled gestational diabetes mellitus (GDM) during , antepartum ([facility]) US OB BPP W NON-LHNBLY3105/21/2025 7:56 PM EDT US OB BPP W NON-BQLBSN9105/14/2025 10:20 PM EDT POCT URINALYSIS PLXQCDHGCxdmgxd65/22/2025 3:13 PM EDT 34 weeks gestation of ([facility]) URINE CULTURE, CJYKRGPHneyyuz40/20/2025 9:55 AM EDT [facility] UA (CLEAN/CATCH) ORNAMENT MAKER HAND/MICRO IF IND.Vtrozuo1305/12/2025 9:55 AM EDT US OB BPP W NON-CEHCEY6305/08/2025 12:28 AM EDT US OB BPP W NON-MSZYOQ5404/30/2025 10:59 PM EDT POCT URINALYSIS LBNEKGBOEvjcsiw60/08/2025 3:19 PM EDT 32 weeks gestation of ([facility]) POCT URINALYSIS XKUFTRMBNyxpwdl73/22/2025 3:54 PM EDT Third trimester ([facility]) US OB UYPPJI1504/05/2025 12:08 PM EDT ALL CBC WITH AUTO FHOVHaoipra19/13/2025 10:33 AM EDT URINARY TRACT INFECTION (HTRX)Excxplr5304/03/2025 3:53 PM EDT POCT URINALYSIS IFFOOERAKockeqx69/11/2025 3:51 PM EDT 28 weeks gestation of ([facility]) Third trimester ([facility]) POCT URINALYSIS XWVDPIRDFtbhpqk37/20/2025 4:14 PM EDT 25 weeks gestation of ([facility]) Second trimester ([facility]) from Last 3 Months Results * US OB BPP W NON-STRESS (06/05/2025 8:26 AM EST) Only the most recent of6 resultswithin the time period is included. Anatomical RegionLateralityModalityOtherSpecimen (Source)Anatomical Location / LateralityCollection Method / VolumeCollection TimeReceived Time06/05/2025 8:26 AM EST Narrative 06/05/2025 8:28 AM EST [facility] ?[address] ? [place] [address] ? Ultrasound Report ? Signed ? Patient: JAVIER,VINNY C ?MR#: [id number] ?? : 2000 ?Acct:[id number] ?? Age/Sex: 24 / F ?ADM Date: 11/12/25 ?? Loc: US ? Attending Dr: Britt Foy D.O. ? Ordering Physician: Britt Foy D.O. ?? Date of Service: 06/04/25 ?? Procedure(s): US OB BPP w non-stress ?? Accession Number(s): [id number] ? cc: Britt Foy D.O.; Ynes Mistry CURBING STONECUTTER ? [facility] ? [address] ? [place] [address] ? Patient Name: ?? VINNY HERRERA ? MRN: [facility]:[id number] ? date: 2000 ?Sex: F ?? Assigned Patient Location: FB ?? Current Patient Location: ? Accession/Order Number: [id number] ?? Exam Date: 06/04/2025 ??16:09 ?Report Date: [...] Dictation Location: RADIO-PC-02 ? Electronically authenticated by: [id number] ??Y ?? Date: 06/05/2025 ??08:26 ? Dictated By: ?Criselda Flores M.D. ? Signed By: ?06/05/25 0828 ? DD/ 0826 ? TD/TT: ? Medical Instrument Cable Fabricator: Procedure Note Radiology, Radiologist, MD - 06/05/[address] [address] Ultrasound Report Signed Patient: VINNY HERRERA CMR#: [id number] : 2000Acct:[id number] Age/Sex: 24 / FADM Date: 06/04/25 Loc: US Attending Dr: Britt Foy D.O. Ordering Physician: Britt Foy D.O. Date of Service: 06/04/25 Procedure(s): US OB BPP w non-stress Accession Number(s): [id number] cc: Britt Foy D.O.; Ynes Mistry NP [place] [address] Patient Name: VINNY HERRERA MRN: [facility]:[id number] date: 2000 Sex: F Assigned Patient Location: [facility] Current Patient Location: Accession/Order Number: [id number] Exam Date: 06/04/2025 16:09 Report Date: 06/05/2025 [...] Flores M.D. 06/05/2025 8:26 AM Dictation Location: [place] [address] Electronically authenticated by: [id number] Y Date: 508:26 Dictated By: Criselda Flores M.D. Signed By:06/05/25827 DD/ 5 TD/TT: Medical Instrument Cable Fabricator: Authorizing ProviderResult TypeResult StatusCorey Law DOCLINISYNC IMAGINGFinal Result * POCT urinalysis dipstick manually resulted (06/02/2025 1:25 PM EST) Only the most recent of7 resultswithin the time period is included. ComponentValueRef RangeTest MethodAnalysis TimePerformed AtPathologist Signature Color, UAYellowClarity, UACloudyGlucose, UANegativeNegative - 2000(110) ++++ mg/dLBilirubin, UANegativeNegative - 4(70) +++ mg/dLKetones, UANegativeNegative - 160(16) ++++ mg/dLSpec Grav, UA1.0151 - 1.03Blood, UANegativeNegative - 50 Yunior/mcLpH, UA6.55 - 9Protein, UANegativeNegative - 2000(20) ++++ mg/dL Urobilinogen, UA1.00.2 - 12 mg/dLLeukocytes, UANegativeNegative - 500+++ Trip/mcL Nitrite, UANegativeNegative - PositiveSpecimen (Source)Anatomical Location / LateralityCollection Method / VolumeCollection TimeReceived VqleRokdb47/10/2025 1:25 PM EST Narrative Authorizing ProviderResult TypeResult StatusCorey Law DOPOINT OF CARE TEST ENTER/EDIT ORDERABLESFinal Result * STREP GP B CULTURE+RFLX (05/28/2025 2:40 PM EST)ComponentValueRef RangeTest MethodAnalysis TimePerformed AtPathologist SignatureSTREP GP B CULTURE+RFLX ??Strep Gp B Culture+Rflx TBHSTREP GP B CULTURE+RFLXNegativeTBHSTREP GP B CULTURE+RFLXCenters for Disease Control and Prevention (CDC) andTBHSTREP GP B CULTURE+RFLXAmeralameda hospital Congress of Obstetricians and GynecologistsTBHSTREP GP B [...] is noted.TBHSTREP GP B CULTURE+RFLX Performed at: - [facility]HSTREP GP B CULTURE+[id number] [place], [place] [id number] GP B CULTURE+RFLXLab Director: Elian Mccray PhD, Phone: [phone] (Source)Anatomical Location / Laterality Collection Method / VolumeCollection TimeReceived Time05/28/2025 2:40 PM EST 05/28/2025 9:05 PM EST Narrative CLINISYNC - 06/02/2025 5:09 PM EST Authorizing ProviderResult TypeResult StatusAmy [facility] BLOOD ORDERABLES Final ResultPerforming OrganizationAddressCity/State/ZIP CodePhone Number CLINISYNC [facility] * OB follow up transabdominal approach [...] BY: Ron Reyes MD Authorizing ProviderResult TypeResult StatusBritt MURPHY OB US PROCEDURES Final Result * URINE CULTURE, ROUTINE (05/12/2025 9:55 AM EDT)ComponentValueRef RangeTest MethodAnalysis TimePerformed AtPathologist SignatureURINE CULTURE, ROUTINE ??Urine Culture, Routine TBHURINE CULTURE, ROUTINEMixed urogenital floraTBHURINE CULTURE, ZDNWKUS82,000- 25,000 colony forming units per mLTBHURINE CULTURE, ROUTINEPerformed at: [facility] LabCore[facility] University HospitalTBHURINE CULTURE, [id number] [place], [place] [id number] URINE CULTURE, ROUTINELab Director: Elian Mccray PhD, Phone: [phone] Specimen (Source)Anatomical Location / LateralityCollection Method / Volume Collection TimeReceived Time05/12/2025 9:55 AM EDT1 10:35 AM EDT Narrative CLINISYNC - 05/13/2025 11:10 PM EDT Authorizing ProviderResult TypeResult StatusCorevicki Foy DOL BLOOD ORDERABLES Final ResultPerforming OrganizationAddressCity/State/ZIP CodePhone Number CLINISYNC [facility] * (ABNORMAL) [facility] UA (CLEAN/CATCH) ORNAMENT MAKER HAND/MICRO IF IND. (05/12/2025 9:55 AM EDT) ComponentValueRef [...] DOCLINISYNCFinal Result Performing OrganizationAddressCity/State/ZIP CodePhone Number CLINISYNC TB * US OB GROWTH (04/05/2025 12:08 PM EDT)Anatomical RegionLateralityModalityOther Specimen (Source)Anatomical Location / LateralityCollection Method / Volume Collection TimeReceived Time04/05/2025 12:08 PM EDT Narrative 04/05/2025 12:11 PM EDT [facility] ?[address] ? [place] [address] ? Ultrasound Report ? Signed ? Patient: VINNY HERRERA ?MR#: [id number] ?? : 2000 ?Acct:[id number] ?? Age/Sex: 24 / F ?ADM Date: 04/05/25 ?? Loc: US ? Attending Dr: Regina Cummins ? Ordering Physician: Regina Cummins ?? Date of Service: 04/05/25 ?? Procedure(s): US OB growth ?? Accession Number(s): [id number] ? cc: Regina Cummins; Physician,Non-Staff M.D. ? [facility] ? [address] ? [place] [address] ? Patient Name: ?? VINNY HERRERA ? MRN: [facility]:[id number] ? date: 2000 ?Sex: F ?? Assigned Patient Location: US ?? Current Patient Location: LAB ?? Accession/Order Number: [id number] ?? Exam Date: 04/05/2025 ??10:00 ?Report Date: [...] Dictation Location: RADIO-PC-20 ? Electronically authenticated by: [id number] ??Y ?? Date: 04/05/2025 ??12:08 ? Dictated By: ?Daryn Peraza D.O. ? Signed By: ?04/05/25 1211 ? DD/ 1208 ? TD/TT: ? Medical Instrument Cable Fabricator: Procedure Note Radiology, Radiologist, MD - 04/05/[address] [address] Ultrasound Report Signed Patient: VINNY HERRERA CMR#: [id number] : 2000Acct:[id number] Age/Sex: 24 / FADM Date: 04/05/25 Loc: US Attending Dr: Regina Cummins Ordering Physician: Regina Cummins Date of Service: 04/05/25 Procedure(s): US OB growth Accession Number(s): [id number] cc: Regina Cummins; Physician,Non-Staff M.D. The [address] [address] Patient Name: VINNY HERRERA MRN: [facility]:[id number] date: 2000 Sex: F Assigned Patient Location: US Current Patient Location: LAB Accession/Order Number: [id number] Exam Date: 04/05/2025 10:00 Report Date: 04/05/2025 [...] Peraza M.D. 04/05/2025 12:08 PM Dictation Location: [facility] Electronically authenticated by: [id number] Y Date: 2:08 Dictated By: Daryn Peraza D.O. Signed By:04/05/25 1211 DD/ 1208 TD/TT: Medical Instrument Cable Fabricator: Authorizing ProviderResult TypeResult StatusAmy [facility] IMAGINGFinal Result * (ABNORMAL) ALL CBC WITH AUTO DIFF (04/05/2025 10:33 AM EDT)ComponentValueRef RangeTest MethodAnalysis TimePerformed AtPathologist SignatureTBH WBC11.04.0 - 11.0 10 3/uLTBHTBH RBC3.47(L)4.20 - 5.40 10 6/uLTBHTBH HGB10.3(L)12.0 - 16.0 g/dLTBHTBH HCT30.7(L)36.0 - 48.0 %TBHTBH MCV88.581.0 - 99.0 fLTBHTBH MCH29.7 26.7 - 34.0 pgTBHTBH MCHC33.629.9 - 35.2 g/dLTBHTBH RDW12.811.0 - 15.0 %TBHTBH MGV588562 - 450 10 3/uLTBHTBH MPV8.7(L)9.5 - 13.5 [...] Performing OrganizationAddressCity/State/ZIP CodePhone Number [facility] * URINARY TRACT INFECTION (HTRX) (04/03/2025 3:53 PM EDT)ComponentValueRef Range Test MethodAnalysis TimePerformed AtPathologist SignatureACINETOBACTER ZDKGHEZG678.961 - 24.689 ppm04/04/2025 7:51 AM EDTHealthTrackRx at [facility] ACINETOBACTER BAUMANIINot Jhuklnzc73.961 - 24.689 ppm04/04/2025 7:51 AM EDT [facility] LabPortCITROBACTER ABBURKTN402.000 - 32.015 ppm04/04/2025 7:51 AM EDTHealthTrackRx at LabPortCITROBACTER FREUNDIINot Jlesuson30.000 - 32.015 ppm04/04/2025 7:51 AM EDTHealthTrackRx at LabPortENTEROBACTER AEROGENES, ZSJVNHB661.000 - 32.290 ppm04/04/2025 7:51 AM EDTHealthTrackRx at LabPortENTEROBACTER AEROGENES, CLOACAENot Qjhtizgs94.000 - 32.290 ppm 04/04/2025 7:51 AM EDTHealthTrackRx at LabPortENTEROCOCCUS FAECALIS, FAECIUM0 26.000 - 33.043 ppm04/04/2025 7:51 AM EDTHealthTrackRx at LabPortENTEROCOCCUS FAECALIS, FAECIUMNot Eueocpyb34.000 - 33.043 ppm04/04/2025 7:51 AM EDT [facility] at LabPortESCHERICHIA BTTO930.000 - 28.500 ppm04/04/2025 7:51 AM EDTHealthTrackRx at LabPortESCHERICHIA COLINot Jpwqhpgp30.000 - 28.500 ppm 04/04/2025 7:51 AM EDTHealthTrackRx at LabPortKLEBSIELLA PNEUMONIAE, OXYTOCA0 23.000 - 31.865 ppm04/04/2025 7:51 AM EDTHealthTrackRx at LabPortKLEBSIELLA PNEUMONIAE, OXYTOCANot Rsigxzfj70.000 - 31.865 ppm04/04/2025 7:51 AM EDT [facility] at LabPortMORGANELLA FDDLKRKI925.961 - 24.689 ppm04/04/2025 7:51 AM EDTHealthTrackRx at LabPortMORGANELLA MORGANIINot Cfknldep68.961 - 24.689 ppm04/04/2025 7:51 AM EDTHealthTrackRx at LabPortPROTEUS MIRABILIS, VULGARIS0 23.000 - 28.500 ppm04/04/2025 7:51 AM EDTHealthTrackRx at LabPortPROTEUS MIRABILIS, VULGARISNot Jqhfhrzb67.000 - 28.500 ppm04/04/2025 7:51 AM EDT [facility] LabPortPSEUDOMONAS FNYILFFYVR560.000 - 31.801 ppm04/04/2025 7:51 AM EDTHealthTrackRx at LabPortPSEUDOMONAS AERUGINOSANot Wedsrzus51.000 - 31.801 ppm04/04/2025 7:51 AM EDTHealthTrackRx at LabPortSTAPHYLOCOCCUS AUREUS0 26.000 - 31.595 ppm04/04/2025 7:51 AM EDTHealthTrackRx at [facility] STAPHYLOCOCCUS AUREUSNot Lmqkxawv19.000 - 31.595 ppm04/04/2025 7:51 AM EDT [facility] LabPortSTREPTOCOCCUS AGALACTIAE (GROUP B STREP)026.000 - 32.435 ppm04/04/2025 7:51 AM EDTHealthTrackRx at LabPortSTREPTOCOCCUS AGALACTIAE (GROUP B STREP)Not Qjuudqse22.000 - 32.435 ppm04/04/2025 7:51 AM EDTHealthTrackRx at LabPortCANDIDA ALBICANS, PARAPSILOSIS, DQBWUYQMJV354.000 - 30.347 ppm04/04/2025 7:51 AM EDTHealthTrackRx at LabPortCANDIDA ALBICANS, PARAPSILOSIS, TROPICALISNot Wcqcpawe41.000 - 30.347 ppm04/04/2025 7:51 AM EDT [facility] LabPortCANDIDA ZLZSYPBX568.000 - 31.618 ppm04/04/2025 7:51 AM EDTHealthTrackRx at LabPortCANDIDA GLABRATANot Rntctxdj95.000 - 31.618 ppm 04/04/2025 7:51 AM EDTHealthTrackRx at LabPortCANDIDA JXBSZQ752.000 - 30.873 ppm04/04/2025 7:51 AM EDTHealthTrackRx at LabPortCANDIDA KRUSEINot Detected 23.000 - 30.873 ppm04/04/2025 7:51 AM [facility]PortSERRATIA WMMROBBGHT519.000 - 31.581 ppm04/04/2025 7:51 AM [facility]Port SERRATIA MARCESCENSNot Dfwmposh44.000 - 31.581 ppm04/04/2025 7:51 AM EDT [facility] LabPortSTREPTOCOCCUS PYOGENES (GROUP A STREP)019.961 - 24.689 ppm04/04/2025 7:51 AM EDT[facility] at LabPortSTREPTOCOCCUS PYOGENES (GROUP A STREP)Not Efpnflvg86.961 - 24.689 ppm04/04/2025 7:51 AM EDT [facility] LabPortSTAPHYLOCOCCUS EPIDERMIDIS, HAEMOLYTICUS, LUGDUNENSIS, SAPROPHYTICUS (RVXMV359.961 - 24.689 ppm0906/2025 7:51 AM EDTHealth[facility] at LabPortSTAPHYLOCOCCUS EPIDERMIDIS, HAEMOLYTICUS, LUGDUNENSIS, SAPROPHYTICUS (URINANot Ltswxtfi51.961 - 24.689 ppm04/04/2025 7:51 AM [facility] at LabPortSTAPHYLOCOCCUS EPIDERMIDIS, HAEMOLYTICUS, LUGDUNENSIS, SAPROPHYTICUS (VXLAH237.961 - 24.689 ppm04/04/2025 7:51 AM [facility] STAPHYLOCOCCUS EPIDERMIDIS, HAEMOLYTICUS, LUGDUNENSIS, SAPROPHYTICUS (URINANot Hgdinwny91.961 - 24.689 ppm04/04/2025 7:51 AM [facility] [place] Spec[facility] (Source)Anatomical Location / LateralityCollection Method / Volume Collection TimeReceived YindIkfrj35/11/2025 3:53 PM EDT04/04/2025 1:35 AM EDT Narrative Authorizing ProviderResult TypeResult StatusAmy [facility] BLOOD ORDERABLES Final ResultPerforming OrganizationAddressCity/State/ZIP CodePhone Number [facility] [address] [place] [address] from Last 3 Months Additional Health Concerns Active ProblemsNoted DateDiagnosed DateOB Lrpdaealp39/09/2025 Insurance * Guarantor: Joanne Herrera TypeRelation to PatientDate of BirthPhone Billing AddressPersonal/XmpjrbEopj93/ [address] [place], [place] [id number]
--- OUTSIDE RECORDS SUMMARY | 2025-06-09 05:43 | XMS_ITS | Encounter Summary ---
Author Organization [facility] Address [address], [address] [place] [address] Care Team Providers Care Barrel Charrer Name Role Phone Ynes Mistry PVC LOADER - AUTOMOTIVE WELDER Primary Care Provide r Reason for Visit * ReasonCommentsMedication Refill Encounter Details DateTypeDepartmentCare Team (Latest Contact Info)Sxbkydfknpy29/05/2025RefSt. [facility]'s [facility] [address] [place] [address] [address] [place] [address] Ynes Mistry PVC LOADER - AUTOMOTIVE WELDER [address] [place] [address] [address] [place] [phone] Medication Refill Social History Tobacco UseTypesPacks/DayYears UsedDateSmoking Tobacco: NeverSmokeless Tobacco: NeverAlcohol UseStandard Drinks/WeekCommentsNot Currently0 (1 standard drink = 0.6 oz pure alcohol)socialAH UtilitiesAnswerDate RecordedIn the past 12 months has the electric, gas, oil, or water [employer] threatened to shut off services in your home?No10/07/2024Overall Financial Resource Strain (CARDIA)AnswerDate RecordedHow hard is it for you to pay for the very basics like food, housing, medical care, and heating?Not hard at all07/13/2023HQ-2AnswerDate RecordedPHQ-9 Total Jcduz772Hunger Vital SignAnswerDate RecordedWithin the past 12 months, [...] steady place to sleep or slept in [facility] (including now)?No07/13/2023Housing Stability Vital SignAnswerDate RecordedIn the last 12 months, was there a time when you were not able to pay the mortgage or rent on time?No10/07/2024In the past 12 months, how many times have you moved where you were living? At any time in the past 12 months, were you homeless or living in a [facility] (including now)?No10/07/2024Food InsecurityAnswerDate RecordedWithin the past 12 months, you worried that your food would run out before you got the money to buy more.Within the past 12 months, the food you bought just didn't last and you didn't have money to get more.CommentsNoSex and Gender InformationValueDate RecordedSex Assigned at HqkykNsrkvj47/28/2024 8:24 PM EDTLegal PqhTnetlo90/10/2013 3:31 PM ESTGender SgylcrnvBrhdiq93/28/2024 8:24 PM EDTSexual OrientationNot on filedocumented as of this encounter Plan of Treatment Not on file documented as of this encounter Visit Diagnoses Not on filedocumented in this encounter Care Teams Team MemberRelationshipSpecialtyStart DateEnd Date Ynes Mistry, PVC LOADER - AUTOMOTIVE WELDER [address] [facility] [place] [address] PCP - GeneralFamily Nurse Practitioner08/02/22documented as of this encounter
--- OUTSIDE RECORDS SUMMARY | 2025-06-09 05:43 | XMS_ITS | Clinical Summary ---
Author Organization [facility] Address [address] [place] [address] Care Team Providers Care Customer Solutions Architect Name Role Phone Ynes Mistry SALVAGE WINDER Primary Care Provider Allergies No known active [...] anemia s/p -hgb 10.8 per recent labs Vbntwebptiup26/28/2023 Assessment & Plan (03/30/2023 1:01 PM EDT): - 30-day event monitor - we will hold off on starting medication until follow-up Abnormal glucose levelHeartburn Yphttcdszdu59yspareunia in tiwffl47Frequent UTInxiety Assessment & Plan (03/30/2023 1:01 PM EDT): - takes sertraline 50 mg daily Seasonal allergic pkgfefnp25/Insomnia due to other mental wrarmzcm44Other wsjzgdy19 Assessment & Plan (03/30/2023 1:02 PM EDT): [...] Last Filed Vital Signs Vital SignReadingTime TakenCommentsBlood Ogffefms696/7607/11/2023 4:27 PM EST Duzba251607/11/2023 4:27 PM ESTTemperature--Respiratory Rate--Oxygen Uvrgcjrwwf31% 07/11/2023 4:27 PM ESTInhaled Oxygen Concentration--Fhhdft19.7 kg (211 lb) 07/11/2023 4:27 PM WDJNrxfuo575.6 cm (5' 6 )07/11/2023 4:27 PM ESTBody Mass Index34.0607/11/2023 4:27 PM EST Plan of Treatment Health MaintenanceDue DateLast DoneCommentsDepression Jrjvabsme48/17/2011dult Kpbejsg94/17/COVID-19 Vaccine ( season)2025 12/29/2020, 12/07/2020Influenza Vaccine (#1)2025Pap Smear04/18/2025 04/18/2022Zoster Vaccines (1 of 2)9002/09/2011, 12/22/1999HIB Vaccines Slaoanytc29/21/2000, 03/12/1999, 01/18/1999, Additional history existsIPV PrwienccOirovrlel59/29/2004, 03/13/2000, 01/18/1999, Additional history exists Varicella AwsmyuqaTskfwoboc15/20/2011, 12/22/1999Meningococcal VaccineCompleted 03/11/2016, 2014, 01/12/2011HPV AjygudhgOnplthjfw86/28/2018, 05/01/2017, 02/24/2017Meningococcal B VaccineAged OutNo longer eligible based on patient's age to complete this topicPneumococcal Vaccine: Pediatrics (0 to 5 Years) and At-Risk Patients (6 to 64 Years)Aged OutNo longer eligible based on patient's age to complete this topicRotavirus VaccinesAged OutNo longer eligible based on patient's age to complete this topic Insurance Care Teams Team MemberRelationshipSpecialtyStart DateEnd Date Ynes Mistry, SALVAGE WINDER [facility] [address] [place] [id number] PCP - General03/20/23
--- OUTSIDE RECORDS SUMMARY | 2025-06-09 05:43 | XMS_ITS | Encounter Summary ---
Author Organization [facility] Address [address] [place] [address] Care Team Providers Care Paving Stone Installer Name Role Phone Unavailable Primary Care Provider Unavailabl e Encounter Details DateTypeDepartmentCare Team (Latest Contact Info)Kjdoykiycqs29/06/2025Telephone [facility] [address] [facility] [address] [place], [phone] Mukul Foy DO [address] [facility] [place] [address] Social History Tobacco UseTypesPacks/DayYears UsedDateSmoking Tobacco: NeverSmokeless Tobacco: NeverAlcohol UseStandard Drinks/WeekCommentsNever0 (1 standard drink = 0.6 oz pure alcohol)Estimated Date of WizqgtnfPzgkfhshNmv32/01/2025Based on last menstrual period of 09/16/2024Sex and Gender InformationValueDate Recorded Sex Assigned at BirthNot on fileLegal FwiOsgbsn10/15/2023 11:47 PM EDTGender IdentityNot on fileSexual OrientationNot on filedocumented as of this encounter Miscellaneous Notes * Telephone Encounter - Carola Franec LPN - 05/29/2025 11:58 AM EST Patient [...] Plan of Treatment DateTypeDepartmentCare Team (Latest Contact Info)Ybfpqxghatt47/05/2026 4:00 PM ESTOffice Visit [facility] [address] [facility] [phone] Mukul Foy, [address] [facility] [address] [place], [place] [phone] documented as of this encounter Goals GoalPatient Goal TypeAssociated ProblemsRecent ProgressPatient-Stated?Author Reminders Care PlanOB RemindersNoOpen Scheduling, Backgrounddocumented as of this encounter Visit Diagnoses Not on filedocumented in this encounter Additional Health Concerns Active ProblemsNoted DateDiagnosed DateOB Oxzczkavk05/09/2025 documented as of this encounter
--- OUTSIDE RECORDS SUMMARY | 2025-06-09 05:43 | XMS_ITS | Encounter Summary ---
Author Organization [facility] Address [address], [address] [place] [address] Care Team Providers Care Overcoil Stepper Name Role Phone Ynes Mistry VP STRATEGY - DIRECTOR OF LOSS PREVENTION Primary Care Provide r Encounter Details DateTypeDepartmentCare Team (Latest Contact Info)Dkjcluxivvp60/10/2025Orders Only [facility] [address] [place] [address] [address] [place] [phone] Provider, MD Yuval Social History Tobacco UseTypesPacks/DayYears UsedDateSmoking Tobacco: NeverSmokeless Tobacco: NeverAlcohol UseStandard Drinks/WeekCommentsNot Currently0 (1 standard drink = 0.6 oz pure alcohol)[facility]ly [facility], [facility] UtilitiesAnswerDate RecordedIn the past 12 months has the electric, gas, oil, or water company threatened to shut off services in your home?No10/07/2024Overall Financial Resource Strain (CARDIA)AnswerDate RecordedHow hard is it for you to pay for the very basics like food, housing, medical care, and heating?Not hard at all07/13/2023HQ-2AnswerDate RecordedPHQ-9 Total Ozeha101Hunger Vital SignAnswerDate RecordedWithin the past 12 months, [...] in a [place] [facility] [place] (including now)?No10/07/2024Food InsecurityAnswerDate RecordedWithin the past 12 months, you worried that your food would run out before you got the money to buy more.Within the past 12 months, the food you bought just didn't last and you didn't have money to get more.CommentsNoSex and Gender InformationValueDate RecordedSex Assigned at PcizlWfybrw88/28/2024 8:24 PM EDTLegal VhgNgxkxc28/10/2013 3:31 PM ESTGender YvcefdicOpzsqo15/28/2024 8:24 PM EDTSexual OrientationNot on filedocumented as of this encounter Plan of Treatment Not on file documented as of this encounter Procedures Procedure NamePriorityDate/TimeAssociated DiagnosisCommentsCHG BIOPHYSICAL PROFILE NON-STRESS YJFCRZZVczqzfy14/05/2025 4:53 PM ESTdocumented in this encounter Results * CHG BIOPHYSICAL PROFILE NON-STRESS TESTING (05/28/2025 4:53 PM EST) Narrative Authorizing ProviderResult TypeResult StatusHistorical Provider MDPR IMAGING Final Result documented in this encounter Visit Diagnoses Not on filedocumented in this encounter Care Teams Team MemberRelationshipSpecialtyStart DateEnd Date Ynes Mistry, VP STRATEGY - DIRECTOR OF LOSS PREVENTION [address] [facility] [place] [phone] PCP - GeneralFamily Nurse Practitioner08/02/22documented as of this encounter
--- OUTSIDE RECORDS SUMMARY | 2025-06-09 05:43 | XMS_ITS | Encounter Summary ---
Author Organization [facility] Address [address] [place] [address] Care Team Providers Care Machine Sewer Name Role Phone Unavailable Primary Care Provider Unavailabl e Encounter Details DateTypeDepartmentCare Team (Latest Contact Info)Mizylvbbqvp70/06/2025Clinisync Result Encounter [facility] External Department Unsolicited Britt Foy, DO [address] [place], [place] [phone] Social History Tobacco UseTypesPacks/DayYears UsedDateSmoking Tobacco: NeverSmokeless Tobacco: NeverAlcohol UseStandard Drinks/WeekCommentsNever0 (1 standard drink = 0.6 oz pure alcohol)Estimated Date of ReyjghmtXujauhsyTii94/01/2025Based on last menstrual period of 09/16/2024Sex and Gender InformationValueDate Recorded Sex Assigned at BirthNot on fileLegal VjfGeieft19/15/2023 11:47 PM EDTGender IdentityNot on fileSexual OrientationNot on filedocumented as of this encounter Plan of Treatment DateTypeDepartmentCare Team (Latest Contact Info)Jnjvxojmnwk79/05/2026 4:00 PM ESTOffice Visit [facility] [place] [facility] [address] [place] [phone] Britt Foy DO [address] [place] [address] documented as of this encounter Goals GoalPatient Goal TypeAssociated ProblemsRecent ProgressPatient-Stated?Author Reminders Care PlanOB RemindersNoOpen Scheduling, Backgrounddocumented as of this encounter Procedures Procedure NamePriorityDate/TimeAssociated DiagnosisCommentsUS OB BPP W NON-XJDMFV3805/29/2025 10:10 AM EST documented in this encounter Results * US OB BPP W NON-STRESS (05/29/2025 10:10 AM EST)Anatomical Region LateralityModalityOtherSpecimen (Source)Anatomical Location / Laterality Collection Method / VolumeCollection TimeReceived Time05/29/2025 10:10 AM EST Narrative 05/29/2025 10:13 AM EST [facility] ?[address] ? [place] [address] ? Ultrasound Report ? Signed ? Patient: VINNY HERRERA ?MR#: [id number] ?? : 2000 ?Acct:[id number] ?? Age/Sex: 24 / F ?ADM Date: 05/28/25 ?? Loc: US ? Attending Dr: Britt Foy D.O. ? Ordering Physician: Britt Foy D.O. ?? Date of Service: 05/28/25 ?? Procedure(s): US OB BPP w non-stress ?? Accession Number(s): [id number] ? cc: Britt Foy D.O.; Ynes Mistry REPLACER ? [facility] ? [address] ? [place] [address] ? Patient Name: ?? VINNY HERRERA ? MRN: [facility]:[id number] ? date: 2000 ?Sex: F ?? Assigned Patient Location: US ?? Current Patient Location: US ?? Accession/Order Number: [id number] ?? Exam Date: 05/28/2025 ??16:05 ?Report Date: [...] 30 seconds ? [Y] ? 2/2 ?? AJMAL: A single deepest vertical pocket of amniotic fluid greater than 2 cm ? [Y] ? 2/2 ?JAMAL: 15.6 cm ? Total score: ? 8/8 ? US/US OB BPP w non-stress ?? IMPRESSION: ? NORMAL BIOPHYSICAL PROFILE ? Impression dictated by: Criselda Flores M.D. ??05/29/2025 10:10 AM ? Dictation Location: RADIO-PC-02 ? Electronically authenticated by: [id number] ??Y ?? Date: 05/29/2025 ??10:10 ? Dictated By: ?Criselda Flores M.D. ? Signed By: ?11/06/25 1013 ? DD/ 1010 ? TD/TT: ? Menagerie Superintendent: Procedure Note Radiology, Radiologist, - 05/29/2025 [place] [address] Ultrasound Report Signed Patient: VINNY HERRERA CMR#: [id number] : 2000Acct:[id number] Age/Sex: 24 / FADM Date: 05/28/25 Loc: US Attending Dr: Britt Foy D.O. Ordering Physician: Britt Foy D.O. Date of Service: 05/28/25 Procedure(s): US OB BPP w non-stress Accession Number(s): [id number] cc: Britt Foy D.O.; Ynes Mistry REPLACER The [place] [phone] Patient Name: VINNY HERRERA MRN: [id number] date: 2000 Sex: F Assigned Patient Location: US Current Patient Location: US Accession/Order Number: [id number] Exam Date: 05/28/2025 16:05 Report Date: 05/29/2025 [...] Flores M.D. 05/29/2025 10:10 AM Dictation Location: [place] [address] Electronically authenticated by: [id number] Y Date: 0:10 Dictated By: Criselda Flores M.D. Signed By:05/29/25 1013 DD/ 1010 TD/TT: Menagerie Superintendent: Authorizing ProviderResult TypeResult StatusCorey Law DOCLINISYNC IMAGINGFinal Result documented in this encounter Visit Diagnoses Not on filedocumented in this encounter Additional Health Concerns Active ProblemsNoted DateDiagnosed DateOB Bhqwfiqbp96/09/2025 documented as of this encounter
--- OUTSIDE RECORDS SUMMARY | 2025-06-09 05:43 | XMS_ITS | Encounter Summary ---
Author Organization [facility] Address [address] [place] [address] Care Team Providers Care Short Order Cook Name Role Phone Unavailable Primary Care Provider Unavailabl e Encounter Details DateTypeDepartmentCare Team (Latest Contact Info)Vkslsdzeunn75/07/2025Telephone [facility] [address] [facility] [place] [phone] Mukul Foy DO [address] [place] [address] Social History Tobacco UseTypesPacks/DayYears UsedDateSmoking Tobacco: NeverSmokeless Tobacco: NeverAlcohol UseStandard Drinks/WeekCommentsNever0 (1 standard drink = 0.6 oz pure alcohol)Estimated Date of JypajnmsXhttvnvdJbl73/01/2025Based on last menstrual period of 09/16/2024Sex and Gender InformationValueDate Recorded Sex Assigned at BirthNot on fileLegal ZmkTejgda85/15/2023 11:47 PM EDTGender IdentityNot on fileSexual OrientationNot [...] Plan of Treatment DateTypeDepartmentCare Team (Latest Contact Info)Lvlkfhuuwxh47/05/2026 4:00 PM ESTOffice Visit [facility] JOHNSONGYN [address] [facility] [facility] [place] [phone] Mukul Foy DO [address] [facility] [place] [address] documented as of this encounter Goals GoalPatient Goal TypeAssociated ProblemsRecent ProgressPatient-Stated?Author Reminders Care PlanOB RemindersNoOpen Scheduling, Backgrounddocumented as of this encounter Visit Diagnoses Not on filedocumented in this encounter Additional Health Concerns Active ProblemsNoted DateDiagnosed DateOB Ychajvvnv18/09/2025 documented as of this encounter
[2025-06-09] MEDS: 0.9 % SODIUM CHLORIDE 1,000 ML 1000 ML IV ×2 (06:19→06:50)
[2025-06-09 06:35] LABS: Hematocrit 31.9 % (36.0-48.0); Hemoglobin 10.9 g/dL (12.0-16.0); Immature Granulocytes Abs Auto 0.04 10^3/uL (0.00-0.03); Immature Granulocytes Pct Auto 0.4 % (0.0-0.5); Lymphocytes Absolute Auto 2.0 10^3/uL (1.2-3.8); Mean Corpuscular HGB Conc 34.2 g/dL (29.9-35.2); Mean Corpuscular Hemoglobin 29.7 pg (26.7-34.0); Mean Corpuscular Volume 86.9 fL (81.0-99.0); Platelet Count 323 10^3/uL (150-450); Red Blood Count 3.67 10^6/uL (4.20-5.40); White Blood Count 9.3 10^3/uL (4.0-11.0)
[2025-06-09 06:36] LABS: Glucose Urine UA NEGATIVE (NEGATIVE)
[2025-06-09 06:44] LABS: Cast Seen? SEEN #/LPF (NONE SEEN); Crystals Seen? None Seen #/HPF (None Seen)
[2025-06-09 06:45] LABS: Cannabinoid Screen Urine NEGATIVE (NEGATIVE); Methamphetamines Screen Urine NEGATIVE (NEGATIVE); Tricyclic Antidepressant Urine NEGATIVE (NEGATIVE); Urine Culture Indicated YES-LC
[2025-06-09] MEDS: FAMOTIDINE/PF 20 MG/2 ML VIAL IV (07:12)
[2025-06-09] MEDS: METOCLOPRAMIDE HCL 10 MG/2 ML VIAL IVP (07:12)
[2025-06-09] MEDS: CITRIC ACID/SODIUM CITRATE 30 ML SOLUTION ORACIT SHOHL'S SOLN PO (07:13)
[2025-06-09] MEDS: CEFAZOLIN SODIUM/DEXTROSE,ISO 2 GM/50 ML PIGGYBACK IV ×2 (07:19→13:26)
[2025-06-09] MEDS: BACITRACIN OINTMENT 28.4 GM TUBE 1 APPLIC TOPICAL ×2 (08:45→09:02)
--- NOTE | 2025-06-09 08:49 | PM.ONB ---
Brief Operative Note Date of procedure: 06/09/25 Pre-op diagnosis general: iup at 39wks, breech presentation, previous c/s, gdma2 Post-op diagnosis: same as pre-op Procedure: NAME OF PROCEDURE: [ section ] PROCEDURE: Patient was taken back to the Operating Room where she was given a spinal anesthesia with Duramorph without difficulty. She was prepped and draped in the normal sterile fashion. A Pfannenstiel skin incision was then made 2 cm above the symphysis pubis and carried down to underlying rectus fascia using a Bovie. The fascia was incised in the midline and extended laterally using Yusuf scissors. Two Jyoti clamps were placed on the superior aspect of the fascia and dissected off the underlying rectus muscles. The same was performed on the inferior aspect as well. The muscles were then in the midline. Peritoneum was identified and entered bluntly. The peritoneum was then extended superiorly and inferiorly with good visualization of the bladder. The bladder blade was inserted. A low transverse incision was made on the patient's uterus and extended laterally digitally. The was then delivered atraumatically after the bladder blade was removed in the cephalic position. The cord was clamped and cut. Cord blood was obtained. The was handed off to awaiting team. The patient's placenta was spontaneously delivered. The uterus was then exteriorized. The uterus was cleared of all clots and debris. The bladder blade was reinserted. The patient's uterine incision was closed using #0 Vicryl in a running lock fashion. Excellent hemostasis was assured. The uterus was then returned to the patient's abdomen. The patient's abdomen was copiously irrigated using warm saline. Peritoneal gutters were cleared of all clots and debris. Again excellent hemostasis was assured. The patient's peritoneum was closed using 3-0 Vicryl in a running fashion. The patient's fascia was closed using #0 Vicryl in a running fashion. The patient's skin was closed using 4-0 Vicryl subcuticularly. The patient tolerated the procedure well. Sponge, lap, and needle counts were correct x2. The patient was taken to the Recovery Room in stable condition. Anesthesia: spinal Surgeon: Mukul Foy Mobile Marketing Specialist: Claudia Cervantes Estimated blood loss (mL): 575 Pathology: none sent Condition: stable Disposition: PACU Urinary Catheter Management Urinary Catheter Management Urethral: Cath placed during this visit: no
--- NOTE | 2025-06-09 08:50 | P.OBPRC_ITS ---
Procedure Pre-op/Post-op diagnoses: Pre-Op/Post-Op Diagnoses Operation Date: 06/09/25 07:30 <No data on this case meets the specified criteria> Procedure: Procedures Operation Date: 06/09/25 07:30 Actual Procedure Side Surgeon p Repeat with removal of umbilical nevus Not Applicable Mukul Foy DO Commissioner Of Conciliation: Claudia Cervantes Estimated blood loss (mL): 575 Disposition: floor Anesthesia type: Spinal
--- NOTE | 2025-06-09 09:42 | PC.NURSE ---
Patient recovered in pacu . Patient had chest pain in delivery. By the time patient arrived in PACU PATIENT DENIED ANY CHEST PAIN OR NAUSEA. NO FEELING PRESENT IN THE FEET AND SHE COULD NOT MOVE FEET TINGLING IN THE ABDOMEN AREA. Patient discharged to [facility] in stable condition
[2025-06-09] MEDS: OXYTOCIN/0.9 % SODIUM CHLORIDE 20 UNITS/1,000 ML PLAST..BAG 125 UNIT IV (09:50)
[2025-06-09] MEDS: OXYCODONE HCL/ACETAMINOPHEN 5MG/325MG 1 TAB PO ×2 (10:11→19:34)
[2025-06-09] MEDS: KETOROLAC TROMETHAMINE 30 MG/ML VIAL IVP ×2 (14:52→20:59)
[2025-06-09] MEDS: ENOXAPARIN SODIUM 40 MG/0.4 ML SYRINGE SUBQ (20:59)
[2025-06-09] MEDS: SERTRALINE HCL 50 MG TABLET 25 MG PO (20:59)
[2025-06-10 03:08] VITALS: BP 122/59; PULSE 74; TEMP 36.7
[2025-06-10] MEDS: KETOROLAC TROMETHAMINE 30 MG/ML VIAL IVP ×4 (03:11→21:47)
[2025-06-10] MEDS: OXYCODONE HCL/ACETAMINOPHEN 5MG/325MG 1 TAB PO ×2 (03:15→14:11)
[2025-06-10 06:24] LABS: Hematocrit 28.2 % (36.0-48.0); Hemoglobin 9.3 g/dL (12.0-16.0); Immature Granulocytes Abs Auto 0.06 10^3/uL (0.00-0.03); Immature Granulocytes Pct Auto 0.6 % (0.0-0.5); Lymphocytes Absolute Auto 2.4 10^3/uL (1.2-3.8); Mean Corpuscular HGB Conc 33.0 g/dL (29.9-35.2); Mean Corpuscular Hemoglobin 29.5 pg (26.7-34.0); Mean Corpuscular Volume 89.5 fL (81.0-99.0); Platelet Count 247 10^3/uL (150-450); Red Blood Count 3.15 10^6/uL (4.20-5.40); White Blood Count 10.8 10^3/uL (4.0-11.0)
--- NOTE | 2025-06-10 08:54 | PM.OBPN ---
OB - PN: Subj Subjective Patient comments: no complaints [place] status: doing well [place] feeding status: exclusively Exam Constitutional Vital Signs, click to edit/add: Last Vital Signs Temp 98.1 F 06/10/25 03:08 Pulse 74 06/10/25 03:08 Resp 16 06/10/25 03:09 BP 122/59 06/10/25 03:08 Pulse Ox 96 06/09/25 09:33 O2 Del Method Room Air 06/10/25 03:09 Documenting provider has reviewed patient's vital signs: yes Common normals: no apparent distress and oriented x3 General appearance: cooperative Orientation/consciousness: Yes awake, Yes oriented to person, Yes oriented to place and Yes oriented to time HENMT Common normals: normocephalic Eye Common normals: EOMs intact bilaterally Neck & C-Spine Common normals: no lymphadenopathy Lymph Lymphatic: no lymphadenopathy noted Chest Common normals: inspection of chest normal Respiratory Common normals: normal respiratory effort, no retractions, no use of accessory muscles and clear to auscultation bilaterally Effort & inspection: able to speak in complete sentences Auscultation: clear to auscultation bilaterally Cardio Common normals: regular rate and regular rhythm Rate: regular rate Rhythm: regular rhythm GI Common normals: Normal to inspection, nondistended, normoactive bowel sounds present, soft to palpation and non-tender Inspection: normal to inspection Auscultation: normoactive bowel sounds Palpation: soft Common normals: no CVA tenderness Back & Pelvis Common normals: no CVA tenderness Extremity Common normals: normal to inspection and full ROM General: normal exam except as noted Neuro Common normals: oriented x3 Sensorium/orientation: awake, alert, oriented to person, oriented to place and oriented to time Psych Common normals: mental status grossly normal, thought process normal, cooperative, affect normal, speech normal, activity/motor behavior normal, denies hallucinations, denies homicidal ideation and denies suicidal ideation Attitude: calm Activity/motor behavior: appropriate eye contact Speech: normal speech Results Labs Labs: Short CBC 06/10/25 Range/Units 06:18 WBC 10.8 (4.0-11.0) 10^3/uL Hgb 9.3 L (12.0-16.0) g/dL Hct 28.2 L (36.0-48.0) % Plt Count 247 (150-450) 10^3/uL Urinary Catheter Management Urinary Catheter Management Urethral: Cath placed during this visit: yes, but has since been removed by the nurse Insertion date: 06/09/25 Insertion time: 07:55 Removal date: 06/10/25 Removal time: 03:23 OB - PN: A/P Assessment and Plan (1) Delivery by section: Plan - day: 1 Plan: routine postop care Time Spent with Patient Time: Total time spent is greater than 50% in coordination of care (as documented) at patient's floor/unit and/or counseling patient: Total time spent with greater than 50% in coordination of care (as documented) at patient's floor/unit and/or counseling patient: less than 15 minutes
[2025-06-10] MEDS: DOCUSATE SODIUM 100 MG CAPSULE PO ×2 (09:53→20:48)
[2025-06-10 09:55] VITALS: O2SAT 96
[2025-06-10 09:58] VITALS: BP 128/65; PULSE 92; TEMP 36.9
[2025-06-10 14:15] VITALS: BP 130/71; PULSE 80
[2025-06-10 14:50] VITALS: O2SAT 96
[2025-06-10] MEDS: SERTRALINE HCL 50 MG TABLET 25 MG PO (20:47)
[2025-06-10] MEDS: ENOXAPARIN SODIUM 40 MG/0.4 ML SYRINGE SUBQ (20:48)
[2025-06-10] MEDS: SIMETHICONE 80 MG TAB.CHEW PO (20:48)
[2025-06-11 00:01] VITALS: BP 122/71; PULSE 75
[2025-06-11] MEDS: KETOROLAC TROMETHAMINE 30 MG/ML VIAL IVP (05:42)
--- NOTE | 2025-06-11 07:44 | P.OBPN_ITS ---
OB - PN: Subj Subjective Patient comments: no complaints and pain well controlled [place] status: doing well Exam Constitutional Vital Signs, click to edit/add: Last Vital Signs Temp 98.5 F 06/10/25 09:58 Pulse 75 06/11/25 00:01 Resp 16 06/11/25 00:01 BP 122/71 06/11/25 00:01 Pulse Ox 96 06/10/25 14:50 O2 Del Method Room Air 06/11/25 00:00 Documenting provider has reviewed patient's vital signs: yes Common normals: no apparent distress Respiratory Common normals: normal respiratory effort and clear to auscultation bilaterally Cardio Common normals: regular rate and regular rhythm GI Common normals: Normal to inspection, nondistended, normoactive bowel sounds present Extremity Common normals: no clubbing, cyanosis or edema and no calf tenderness Urinary Catheter Management Urinary Catheter Management Urethral: Cath placed during this visit: yes, but has since been removed by the nurse Insertion date: 06/09/25 Insertion time: 07:55 Removal date: 06/10/25 Removal time: 03:23 OB - PN: A/P Assessment and Plan (1) Delivery by section: Plan - day: 1 Plan: routine postop care, discharge home and other (fu 1wk) Time Spent with Patient Time: Total time spent is greater than 50% in coordination of care (as documented) at patient's floor/unit and/or counseling patient: Total time spent with greater than 50% in coordination of care (as documented) at patient's floor/unit and/or counseling patient: less than 15 minutes
[2025-06-11 08:33] VITALS: BP 131/73; PULSE 88; TEMP 36.4
[2025-06-11] MEDS: DOCUSATE SODIUM 100 MG CAPSULE PO ×2 (10:42→20:08)
[2025-06-11] MEDS: IBUPROFEN 400 MG TABLET 800 MG PO ×2 (11:50→20:09)
[2025-06-11 16:35] VITALS: BP 139/90; PULSE 86; TEMP 37.1
[2025-06-11 16:43] VITALS: O2SAT 96
[2025-06-11] MEDS: SERTRALINE HCL 50 MG TABLET 25 MG PO (20:13)
[2025-06-11] MEDS: ENOXAPARIN SODIUM 40 MG/0.4 ML SYRINGE SUBQ (20:13)
[2025-06-11 23:54] VITALS: BP 130/83; PULSE 76
[2025-06-12] MEDS: IBUPROFEN 400 MG TABLET 800 MG PO ×2 (05:40→13:19)
[2025-06-12 08:45] VITALS: BP 121/67; PULSE 73; O2SAT 96
--- NOTE | 2025-06-12 09:05 | P.OBPN_ITS ---
OB - PN: Subj Subjective Patient comments: no complaints Loretto status: doing well Loretto feeding status: breast and bottle feeding Exam Constitutional Vital Signs, click to edit/add: Last Vital Signs Temp 98.7 F 06/11/25 16:35 Pulse 73 06/12/25 08:45 Resp 16 06/11/25 23:55 BP 121/67 06/12/25 08:45 Pulse Ox 96 06/11/25 16:43 O2 Del Method Room Air 06/11/25 23:55 Documenting provider has reviewed patient's vital signs: yes Common normals: no apparent distress General appearance: cooperative, comfortable and well kempt Orientation/consciousness: Yes awake, Yes oriented to person, Yes oriented to place and Yes oriented to time HENMT Common normals: normocephalic Eye Common normals: EOMs intact bilaterally Neck & C-Spine Common normals: full ROM Lymph Lymphatic: no lymphadenopathy noted Chest Common normals: inspection of chest normal Respiratory Common normals: normal respiratory effort Effort & inspection: able to speak in complete sentences Auscultation: clear to auscultation bilaterally Cardio Common normals: regular rate and regular rhythm Rate: regular rate Rhythm: regular rhythm GI Common normals: Normal to inspection, nondistended, normoactive bowel sounds present Inspection: normal to inspection Common normals: no CVA tenderness Back & Pelvis Common normals: no CVA tenderness Extremity Common normals: normal to inspection Neuro Common normals: oriented x3 Sensorium/orientation: awake, alert, oriented to person, oriented to place and oriented to time Psych Common normals: mental status grossly normal, thought process normal, cooperative, affect normal, speech normal, activity/motor behavior normal, denies hallucinations, denies homicidal ideation and denies suicidal ideation Attitude: calm Thought process: normal thought process Urinary Catheter Management Urinary Catheter Management Urethral: Cath placed during this visit: yes, but has since been removed by the sigrid santos Insertion date: 06/09/25 Insertion time: 07:55 Removal date: 06/10/25 Removal time: 03:23 OB - PN: A/P Assessment and Plan (1) Delivery by section: Plan - day: 3 Plan: discharge home Time Spent with Patient Time: Total time spent is greater than 50% in coordination of care (as documented) at patient's floor/unit and/or counseling patient: Total time spent with greater than 50% in coordination of care (as documented) at patient's floor/unit and/or counseling patient: less than 15 minutes
[2025-06-12] MEDS: DOCUSATE SODIUM 100 MG CAPSULE PO (13:20)
== END 2025-06-12 13:50 | disposition home or self-care (01) | DRG 788 ==
PROVIDERS: Admitting Provider Obstetrics & Gynecology; PCP Nurse Practitioner Women's Health; Visit Provider Obstetrics & Gynecology
PROC: 10D00Z1 Extraction of Products of Conception, Low, Open Approach (ICD-10-PCS; CPT 59514; principal; 2025-06-09 07:30)
DX: O34.211 Maternal care for low transverse scar from previous cesarean delivery (principal); O32.1XX0 Maternal care for breech presentation, not applicable or unspecified; O24.424 Gestational diabetes mellitus in childbirth, insulin controlled; Z37.0 Single live birth; Z90.49 Acquired absence of other specified parts of digestive tract; Z3A.38 38 weeks gestation of pregnancy; Z87.440 Personal history of urinary (tract) infections; O99.891 Other specified diseases and conditions complicating pregnancy; D22.5 Melanocytic nevi of trunk
CPT/HCPCS: 36415; 80307; 81001; 82948; 85025; 86850; 86900; 86901; 87086; 88305; 94667; 94668; J0690; J1650; J1885; J2274; J2371; J2405; J2590; J2765; J3010; J3490

== ENCOUNTER 2025-06-17 08:21 | Outpatient (OUT) | payer OTHER, SELFPAY ==
--- OUTSIDE RECORDS SUMMARY | 2025-06-17 08:26 | XMS_ITS | Encounter Summary ---
Author Organization [facility] Address [address] [place] [address] Care Team Providers Care Vice President Of Talent Acquisition Name Role Phone Unavailable Primary Care Provider Unavailabl e Reason for Referral * Medications - AuthorizedSpecialtyDiagnoses / ProceduresReferred By Contact Referred To Contact Diagnoses Post- depression Mukul Foy DO [address] [place] [address] Phone: tel: fax: Referral IDStatusReasonStart DateExpiration DateVisits RequestedVisits [id number]/19/202512/2/202511 Encounter Details DateTypeDepartmentCare Team (Latest Contact Info)Lwssdipfarm19/18/2025Telephone DIANE Liriano OBGYN [address] [place] [phone] Mukul Foy DO [address] [place] [address] Social History Tobacco UseTypesPacks/DayYears UsedDateSmoking Tobacco: NeverSmokeless Tobacco: NeverAlcohol UseStandard Drinks/WeekCommentsNever0 (1 standard drink = 0.6 oz pure alcohol)Estimated Date of SederhxiDpcdunqaSyx63/01/2025Based on last menstrual period of 09/16/2024Sex and Gender InformationValueDate Recorded Sex Assigned at BirthNot on fileLegal GpsBequrv94/15/2023 11:47 PM EDTGender IdentityNot on fileSexual OrientationNot on filedocumented as of this encounter Miscellaneous Notes * Telephone Encounter - Jo Ann Isabel LPN - 06/10/2025 10:52 AM EST Verbal orders from Dr. Foy to prior auth medication and send to mail order pharmacy accordingly. Will notify patient once medication is covered and sent. Jo Ann Hamilton LPN documented in this encounter Plan of Treatment DateTypeDepartmentCare Team (Latest Contact Info)Uszhorjijpd07/25/2025 11:00 AM ESTOffice Visit NOMRenzo SANTO [address] [facility] [place] [phone] Regina Barton PA [address] [facility] [place] [address] 07/28/2025 4:00 PM ESTOffice Visit NOMRenzo SANTO [address] [facility] [place] [phone] Mukul Foy DO [address] 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
--- OUTSIDE RECORDS SUMMARY | 2025-06-17 08:26 | XMS_ITS | Encounter Summary ---
Author Organization [facility] Address [address] [place] [address] Care Team Providers Care Poultry Trimmer Name Role Phone Unavailable Primary Care Provider Unavailabl e Encounter Details DateTypeDepartmentCare Team (Latest Contact Info)Zvmmgxufemd82/17/2025linisync Result Encounter [facility] External Department Unsolicited Mukul Foy DO [address] [facility] [address] [place], [facility]11 Social History Tobacco UseTypesPacks/DayYears UsedDateSmoking Tobacco: NeverSmokeless Tobacco: NeverAlcohol UseStandard Drinks/WeekCommentsNever0 (1 standard drink = 0.6 oz pure alcohol)Estimated Date of CatrwbexWfsnbpyuIyw36/01/2025Based on last menstrual period of 09/16/2024Sex and Gender InformationValueDate Recorded Sex Assigned at BirthNot on fileLegal KlbIcphgi32/15/2023 11:47 PM EDTGender IdentityNot on fileSexual OrientationNot on filedocumented as of this encounter Plan of Treatment DateTypeDepartmentCare Team (Latest Contact Info)Yiyylmcumpe21/25/2025 11:00 AM ESTOffice Visit NOMRenzo SANTO [address] [facility] [place] [phone] Regina Barton PA [address] [facility] [address] [place], [place] [phone] 07/28/2025 4:00 PM ESTOffice Visit [facility] [address] [facility] [place] [place] [address] Mukul Foy, [address] [facility] [address] [place], [place] [phone] documented as of this encounter Goals GoalPatient Goal TypeAssociated ProblemsRecent ProgressPatient-Stated?Author Reminders Care PlanOB RemindersNoOpen Scheduling, Backgrounddocumented as of this encounter Procedures Procedure NamePriorityDate/TimeAssociated DiagnosisCommentsALL CBC WITH AUTO DSLWVeixmzq25/17/2025 6:10 AM EST URINE CULTURE, TGHITILQvvizml42/17/2025 5:50 AM EST TBH DRUG SCREEN RAPID (URINE)Teanjig3306/09/2025 5:50 AM EST HP URINALYSIS, WITH LJTXRIVHKHBKnpafdw34/17/2025 5:50 AM EST documented in this encounter Results * (ABNORMAL) ALL CBC WITH AUTO DIFF (06/09/2025 6:10 AM EST)ComponentValueRef RangeTest MethodAnalysis TimePerformed AtPathologist SignatureTBH WBC9.34.0 - 11.0 10 3/uLTBHTBH RBC3.67(L)4.20 - 5.40 10 6/uLTBHTBH HGB10.9(L)12.0 - 16.0 g/dLTBHTBH HCT31.9(L)36.0 - 48.0 %TBHTBH MCV86.981.0 - 99.0 fLTBHTBH MCH29.7 26.7 - 34.0 pgTBHTBH MCHC34.229.9 - 35.2 g/dLTBHTBH RDW14.111.0 - 15.0 %TBHTBH ZYP353728 - 450 10 3/uLTBHTBH MPV9.3(L)9.5 - 13.5 fLTBHNEUTROPHILS PERCENT AUTO70.143.0 - 75.0 %TBHLYMPHOCYTES PERCENT AUTO21.920.5 - 60.0 %TBHMONOCYTES PERCENT AUTO6.31.7 - 12.0 %TBHTBH EO %1.10.9 - 7.0 %TBHBASOPHILS PERCENT AUTO 0.20.2 - 2.0 %TBHIMMATURE GRANULOCYTES PCT AUTO0.40.0 - 0.5 %TBHNEUTROPHILS ABSOLUTE AUTO6.51.4 - 6.5 10 3/uLTBHLYMPHOCYTES ABSOLUTE AUTO2.01.2 - 3.8 10 3/uLTBHMONOCYTES ABSOLUTE AUTO0.60.3 - 0.8 10 3/uLTBHTBH EO #0.10.0 - 0.7 10 3/uLTBHBASOPHILS ABSOLUTE AUTO0.00.0 - 0.1 10 3/uLTBHIMMATURE GRANULOCYTES ABS AUTO0.04(H)0.00 - 0.03 10 3/uLTBHSpecimen (Source)Anatomical Location / LateralityCollection Method / VolumeCollection TimeReceived Time06/09/2025 6:10 AM EST06/09/2025 6:31 AM EST Narrative CLINISYNC - 06/09/2025 6:36 AM EST Authorizing ProviderResult TypeResult StatusCorey Law DOCLINISYNCFinal Result Performing OrganizationAddressCity/State/ZIP CodePhone Number [facility] * URINE CULTURE, ROUTINE (06/09/2025 5:50 AM EST)ComponentValueRef RangeTest MethodAnalysis TimePerformed AtPathologist SignatureURINE CULTURE, ROUTINE ??Urine Culture, Routine TBHURINE CULTURE, ROUTINECulture shows less than 10,000 colony forming units of bacteria perTBHURINE CULTURE, ROUTINEmilliliter of urine. This colony count is not generally consideredTBHURINE CULTURE, ROUTINEto be clinically significant. TBHURINE CULTURE, ROUTINEPerformed at: [facility] LabMyMichigan Medical Center GladwinTBHURINE CULTURE, [id number] [place], [place] [id number] CULTURE, ROUTINELab Director: Elian Mccray PhD, Phone: [phone] (Source)Anatomical Location / LateralityCollection Method / VolumeCollection TimeReceived Time 06/09/2025 5:50 AM EST06/09/2025 6:31 AM EST Narrative CLINISYNC - 06/10/2025 8:08 PM EST Authorizing ProviderResult TypeResult StatusCorey Law DOLAB BLOOD ORDERABLES Final ResultPerforming OrganizationAddressCity/State/ZIP CodePhone Number [facility] * TBH DRUG SCREEN RAPID (URINE) (06/09/2025 5:50 AM EST)ComponentValueRef Range Test MethodAnalysis TimePerformed AtPathologist SignatureCANNABINOID SCREEN URINENEGATIVENEGATIVETBHPHENCYCLIDINE SCREEN URINENEGATIVENEGATIVETBHCOCAINE SCREEN URINENEGATIVENEGATIVETBHMETHAMPHETAMINES SCREEN URINENEGATIVENEGATIVE TBHOPIATE SCREEN URINENEGATIVENEGATIVETBHAMPHETAMINE SCREEN URINENEGATIVE NEGATIVETBHBENZODIAZEPINES SCREEN URINENEGATIVENEGATIVETBHTRICYCLIC ANTIDEPRESSANT URINENEGATIVENEGATIVETBHMETHADONE SCREEN URINENEGATIVENEGATIVE TBHBARBITURATES SCREEN URINENEGATIVENEGATIVETBHOXYCODONE SCREEN URINENEGATIVE NEGATIVETBHBUPRENORPHINE SCREEN URINENEGATIVENEGATIVETBHComment: DRUG CLASS TEST SYSTEM CUT-OFF CONCENTRATIONS ARE FOLLOWS: AMP (Amphetamine): 500 ng/mL BAR (Barbiturates): 200 ng/mL BZO (Benzodiazepines): 150 ng/mL BUP (Buprenorphine): 10 ng/mL AMBER (Cocaine): 150 ng/mL mAMP (Methamphetamine): 500 ng/mL MTD (Methadone): 200 ng/mL OPI (Opiates): 100 ng/mL OXY (Oxycodone): 100 ng/mL PCP (Phencyclidine): 25 ng/mL THC (Cannabinoids): 50 ng/mL TCA (Trycyclic Antidepressants): 300 ng/mL Specimen (Source)Anatomical Location / LateralityCollection Method / Volume Collection TimeReceived Time06/09/2025 5:50 AM EST06/09/2025 6:31 AM EST Narrative CLINISYNC - 06/09/2025 6:45 AM EST Authorizing ProviderResult TypeResult StatusCorey Law DOCLINISYNCFinal Result Performing OrganizationAddressCity/State/ZIP CodePhone Number [facility] * (ABNORMAL) HMHP URINALYSIS, WITH MICROSCOPIC (06/09/2025 5:50 AM EST)Component ValueRef RangeTest MethodAnalysis TimePerformed AtPathologist SignatureCOLOR URINEYELLOWYELLOWTBHCLARITY URINECLEARCLEARTBHSPECIFIC GRAVITY URINE1.0201.005 - 1.025TBHPH URINE6.55.0 - 9.0TBHPROTEIN URINENEGATIVENEG/TRACE mg/dLTBH GLUCOSE URINE UANEGATIVENEGATIVE mg/dLTBHBILIRUBIN URINENEGATIVENEGATIVETBH KETONES URINETRACE(A)NEGATIVE mg/dLTBHBLOOD URINENEGATIVENEGATIVETBHNITRITE URINENEGATIVENEGATIVETBHUROBILINOGEN URINE0.20.2 - 1.0 EU/dLTBHLEUKOCYTE ESTERASE URINETRACE(A)NEGATIVETBHTBH WBC5-10(A)NONE SEEN #/HPFTBHTBH RBC2-5(A) 0 - 2 #/HPFTBHBACTERIA URINELARGE(A)NONE SEEN #/HPFTBHMUCUS URINENONE SEENNONE SEENTBHSQUAMOUS EPITHELIAL CELL URINEMODERATE(A)NONE/RARE #/LPFTBHCRYSTALS SEEN?None SeenNone Seen #/HPFTBHCAST SEEN?SEEN(A)NONE SEEN #/LPFTBHHYALINE CASTS URINEFEWTBHURINE CULTURE INDICATEDYES-LCTBHSpecimen (Source)Anatomical Location / LateralityCollection Method / VolumeCollection TimeReceived Time 06/09/2025 5:50 AM EST06/09/2025 6:31 AM EST Narrative CLINISYNC - 06/09/2025 6:45 AM EST Authorizing ProviderResult TypeResult StatusCorey Law DOCLINISYNCFinal Result Performing OrganizationAddressCity/State/ZIP CodePhone Number [facility] documented in this encounter Visit Diagnoses Not on filedocumented in this encounter Additional Health Concerns Active ProblemsNoted DateDiagnosed DateOB Lvubzwmqj49/09/2025 documented as of this encounter
--- OUTSIDE RECORDS SUMMARY | 2025-06-17 08:27 | XMS_ITS | Encounter Summary ---
Author Organization Anthony [facility]ann[facility]arco a [facility] Address [address], [address] [place] [address] Care Team Providers Care Managing Consultant Clinical Professor Name Role Phone Ynes Mistry RETORT ENGINEER - POLICE CRIME SCENE TECHNICIAN Primary Care Provide r Encounter Details DateTypeDepartmentCare Team (Latest Contact Info)Pyzvmgoujxq87/20/2025bstract [facility] [address] [place] [address] [address] [place] [address] Ynes Mistry, RETORT ENGINEER - POLICE CRIME SCENE TECHNICIAN [address] [place] [phone] Social History Tobacco UseTypesPacks/DayYears UsedDateSmoking Tobacco: NeverSmokeless Tobacco: NeverAlcohol UseStandard Drinks/WeekCommentsNot Currently0 (1 standard drink = 0.6 oz pure alcohol)socialCHILDR[facility] UtilitiesAnswerDate RecordedIn the past 12 months has the electric, gas, oil, or water company threatened to shut off services in your home?No10/07/2024Overall Financial Resource Strain (CARDIA)AnswerDate RecordedHow hard is it for you to pay for the very basics like food, housing, medical care, and heating?Not hard at all07/13/2023HQ-2AnswerDate RecordedPHQ-9 Total Tnrqi694Hunger Vital SignAnswerDate RecordedWithin the past 12 months, [...] steady place to sleep or [facility] (including now)?No07/13/2023Housing Stability Vital SignAnswerDate RecordedIn the [...] more.CommentsNoSex and Gender InformationValueDate RecordedSex Assigned at BwvviYzzjhw93/28/2024 8:24 PM EDTLegal ZooEibhni86/10/2013 3:31 PM ESTGender JnohqmfdLvclqo29/28/2024 8:24 PM EDTSexual OrientationNot on filedocumented as of this encounter Plan of Treatment Not on file documented as of this encounter Visit Diagnoses Not on filedocumented in this encounter Care Teams Team MemberRelationshipSpecialtyStart DateEnd Date Ynes Mistry, RETORT ENGINEER - POLICE CRIME SCENE TECHNICIAN [address] [place], [place] [phone] PCP - GeneralFamily Nurse Practitioner08/02/22documented as of this encounter
--- OUTSIDE RECORDS SUMMARY | 2025-06-17 08:27 | XMS_ITS | Encounter Summary ---
Author Organization [facility] Address [address], [address] [place] [address] Care Team Providers Care Vat Operator Name Role Phone Ynes Mistry PLANT TOUR GUIDE - LANDSCAPE AND YARDWORK LABORER Primary Care Provide r Encounter Details DateTypeDepartmentCare Team (Latest Contact Info)Mpmklbenxgf04/19/2025bstract [facility] [address] [place] [address] [address] [place] [address] Ynes Mistry, PLANT TOUR GUIDE - LANDSCAPE AND YARDWORK LABORER [address] [place] [phone] Social History Tobacco UseTypesPacks/DayYears UsedDateSmoking Tobacco: NeverSmokeless Tobacco: NeverAlcohol UseStandard Drinks/WeekCommentsNot Currently0 (1 standard drink = 0.6 oz pure alcohol)socialSAMARITAN H[facility]ITAL UtilitiesAnswerDate RecordedIn the past 12 months has the electric, gas, oil, or water company threatened to shut off services in your home?No10/07/2024Overall Financial Resource Strain (CARDIA)AnswerDate RecordedHow hard is it for you to pay for the very basics like food, housing, medical care, and heating?Not hard at all07/13/2023HQ-2AnswerDate RecordedPHQ-9 Total Oahua211Hunger Vital SignAnswerDate RecordedWithin the past 12 months, [...] steady place to sleep or [facility] in [facility] (including now)?No07/13/2023Housing Stability Vital SignAnswerDate RecordedIn the last 12 months, was there a time when you were not able to pay the mortgage or rent on time?No10/07/2024In the past 12 months, how many times have you moved where you were living? At any time in the past 12 months, were you homeless or living in a snf (including now)?No10/07/2024Food InsecurityAnswerDate RecordedWithin the past 12 months, you worried that your food would run out before you got the money to buy more.Within the past 12 months, the food you bought just didn't last and you didn't have money to get more.CommentsNoSex and Gender InformationValueDate RecordedSex Assigned at RjvisLijnyb79/28/2024 8:24 PM EDTLegal PrlTlwcga24/10/2013 3:31 PM ESTGender XmycodfgNqisgp40/28/2024 8:24 PM EDTSexual OrientationNot on filedocumented as of this encounter Plan of Treatment Not on file documented as of this encounter Visit Diagnoses Not on filedocumented in this encounter Care Teams Team MemberRelationshipSpecialtyStart DateEnd Date Ynes Mistry, PLANT TOUR GUIDE - LANDSCAPE AND YARDWORK LABORER [address] [place], [place] [phone] PCP - GeneralFamily Nurse Practitioner08/02/22documented as of this encounter
--- OUTSIDE RECORDS SUMMARY | 2025-06-17 08:27 | XMS_ITS | Encounter Summary ---
Author Organization [facility] Address [address] [place] [address] Care Team Providers Care Lock Tender Name Role Phone Unavailable Primary Care Provider Unavailabl e Encounter Details DateTypeDepartmentCare Team (Latest Contact Info)Vyhjhdiwpqm48/18/2025linisync Result Encounter [facility] External Department Unsolicited Mukul Foy DO [address] [place], [id number] Social History Tobacco UseTypesPacks/DayYears UsedDateSmoking Tobacco: NeverSmokeless Tobacco: NeverAlcohol UseStandard Drinks/WeekCommentsNever0 (1 standard drink = 0.6 oz pure alcohol)Estimated Date of GcimgibcBgozgcjtIpc39/01/2025Based on last menstrual period of 09/16/2024Sex and Gender InformationValueDate Recorded Sex Assigned at BirthNot on fileLegal YugJqsvgp07/15/2023 11:47 PM EDTGender IdentityNot on fileSexual OrientationNot on filedocumented as of this encounter Plan of Treatment DateTypeDepartmentCare Team (Latest Contact Info)Cuboorfvpuc99/25/2025 11:00 AM ESTOffice Visit NOMRenzo SANTO [address] [facility] [place] [phone] Regina Barton PA [address] [place], [place] [phone] 07/28/2025 4:00 PM ESTOffice Visit [facility] [address] [facility] [facility] [place] [address] Mukul Foy, [address] [place], [place] [id number] documented as of this encounter Goals GoalPatient Goal TypeAssociated ProblemsRecent ProgressPatient-Stated?Author Reminders Care PlanOB RemindersNoOpen Scheduling, Backgrounddocumented as of this encounter Procedures Procedure NamePriorityDate/TimeAssociated DiagnosisCommentsALL CBC WITH AUTO RMFQPivwqib40/18/2025 6:18 AM EST documented in this encounter Results * (ABNORMAL) ALL CBC WITH AUTO DIFF (06/10/2025 6:18 AM EST)ComponentValueRef RangeTest MethodAnalysis TimePerformed AtPathologist SignatureTBH WBC10.84.0 - 11.0 10 3/uLTBHTBH RBC3.15(L)4.20 - 5.40 10 6/uLTBHTBH HGB9.3(L)12.0 - 16.0 g/dLTBHTBH HCT28.2(L)36.0 - 48.0 %TBHTBH MCV89.581.0 - 99.0 fLTBHTBH MCH29.5 26.7 - 34.0 pgTBHTBH MCHC33.029.9 - 35.2 g/dLTBHTBH RDW14.411.0 - 15.0 %TBHTBH TYP997870 - 450 10 3/uLTBHTBH MPV9.0(L)9.5 - 13.5 fLTBHNEUTROPHILS PERCENT AUTO68.843.0 - 75.0 %TBHLYMPHOCYTES PERCENT AUTO21.820.5 - 60.0 %TBHMONOCYTES PERCENT AUTO7.91.7 - 12.0 %TBHTBH EO %0.6(L)0.9 - 7.0 %TBHBASOPHILS PERCENT AUTO0.30.2 - 2.0 %TBHIMMATURE GRANULOCYTES PCT AUTO0.6(H)0.0 - 0.5 %TBH NEUTROPHILS ABSOLUTE AUTO7.4(H)1.4 - 6.5 10 3/uLTBHLYMPHOCYTES ABSOLUTE AUTO 2.41.2 - 3.8 10 3/uLTBHMONOCYTES ABSOLUTE AUTO0.9(H)0.3 - 0.8 10 3/uLTBHTBH EO #0.10.0 - 0.7 10 3/uLTBHBASOPHILS ABSOLUTE AUTO0.00.0 - 0.1 10 3/uLTBHIMMATURE GRANULOCYTES ABS AUTO0.06(H)0.00 - 0.03 10 3/uLTBHSpecimen (Source)Anatomical Location / LateralityCollection Method / VolumeCollection TimeReceived Time 06/10/2025 6:18 AM EST06/10/2025 6:21 AM EST Narrative CLINISYNC - 06/10/2025 6:25 AM EST Authorizing ProviderResult TypeResult StatusCorey Alw DOCLINISYNCFinal Result Performing OrganizationAddressCity/State/ZIP CodePhone Number [facility] documented in this encounter Visit Diagnoses Not on filedocumented in this encounter Additional Health Concerns Active ProblemsNoted DateDiagnosed DateOB Zunbhrnwt23/09/2025 documented as of this encounter
--- OUTSIDE RECORDS SUMMARY | 2025-06-17 08:27 | XMS_ITS | Encounter Summary ---
Author Organization Anthony [facility] Address [address], [address] [place] [address] Care Team Providers Care Medical Data Analyst Name Role Phone Ynes Mistry ROLLS BAKER - LITHOGRAPH PRESS FEEDER Primary Care Provide r Encounter Details DateTypeDepartmentCare Team (Latest Contact Info)Ycetyhgjcqe81/18/2025bstract [facility] Primary Care [address] [place] [address] [address] [place] [address] Ynes Mistry, ROLLS BAKER - LITHOGRAPH PRESS FEEDER [address] [place] [phone] Social History Tobacco UseTypesPacks/DayYears UsedDateSmoking Tobacco: NeverSmokeless Tobacco: NeverAlcohol UseStandard Drinks/WeekCommentsNot Currently0 (1 standard drink = 0.6 oz pure alcohol)socialPARK[facility] UtilitiesAnswerDate RecordedIn the past 12 months has the electric, gas, oil, or water company threatened to shut off services in your home?No10/07/2024Overall Financial Resource Strain (CARDIA)AnswerDate RecordedHow hard is it for you to pay for the very basics like food, housing, medical care, and heating?Not hard at all07/13/2023HQ-2AnswerDate RecordedPHQ-9 Total Cuscz148Hunger Vital SignAnswerDate RecordedWithin the past 12 months, [...] steady place to sleep or [facility] in [facility] (including now)?No07/13/2023Housing Stability Vital SignAnswerDate RecordedIn the [...] more.CommentsNoSex and Gender InformationValueDate RecordedSex Assigned at GovzzFducpx74/28/2024 8:24 PM EDTLegal WoeQobfmz55/10/2013 3:31 PM ESTGender ZfsdqabjRnwipd55/28/2024 8:24 PM EDTSexual OrientationNot on filedocumented as of this encounter Plan of Treatment Not on file documented as of this encounter Visit Diagnoses Not on filedocumented in this encounter Care Teams Team MemberRelationshipSpecialtyStart DateEnd Date Ynes Mistry, ROLLS BAKER - LITHOGRAPH PRESS FEEDER [address] [address] [place], [place] [phone] PCP - GeneralFamily Nurse Practitioner08/02/22documented as of this encounter
--- OUTSIDE RECORDS SUMMARY | 2025-06-17 08:27 | XMS_ITS | Clinical Summary ---
Author Organization [facility] Address [address] [address] Care Team Providers Care Clock Smith Name Role Phone Ynes Mistry HANDHOLE MACHINE OPERATOR Primary Care Provider Allergies No known active [...] anemia s/p -hgb 10.8 per recent labs Hftcrqciucnm93/28/2023 Assessment & Plan (03/30/2023 1:01 PM EDT): - 30-day event monitor - we will hold off on starting medication until follow-up Abnormal glucose levelHeartburn Yzwasehxqfr36yspareunia in nlnopf21Frequent UTInxiety Assessment & Plan (03/30/2023 1:01 PM EDT): - takes sertraline 50 mg daily Seasonal allergic nysgnuba84/Insomnia due to other mental fychrsco04Other vwyhted50 Assessment & Plan (03/30/2023 1:02 PM EDT): [...] Last Filed Vital Signs Vital SignReadingTime TakenCommentsBlood Snqzyxta877/7607/11/2023 4:27 PM EST Fpfdk799107/11/2023 4:27 PM ESTTemperature--Respiratory Rate--Oxygen Cwdzxvoaph06% 07/11/2023 4:27 PM ESTInhaled Oxygen Concentration--Xkummc80.7 kg (211 lb) 07/11/2023 4:27 PM EZRKlvxxv888.6 cm (5' 6 )07/11/2023 4:27 PM ESTBody Mass Index34.0607/11/2023 4:27 PM EST Plan of Treatment Health MaintenanceDue DateLast DoneCommentsDepression Cxshbapfg25/17/2011dult Xzdfxxt23/17/COVID-19 Vaccine ( season)2025 12/29/2020, 12/07/2020Influenza Vaccine (#1)2025Pap Smear04/18/2025 04/18/2022Zoster Vaccines (1 of 2)9002/09/2011, 12/22/1999HIB Vaccines Rtkvoitha07/21/2000, 03/12/1999, 01/18/1999, Additional history existsIPV VofuhursGixgjmhed69/29/2004, 03/13/2000, 01/18/1999, Additional history exists Varicella HpfuucxqHyxeizlqm95/20/2011, 12/22/1999Meningococcal VaccineCompleted 03/11/2016, 2014, 01/12/2011HPV MlhgrpcdTxqxrqtvt18/28/2018, 05/01/2017, 02/24/2017Meningococcal B VaccineAged OutNo longer eligible based on patient's age to complete this topicPneumococcal Vaccine: Pediatrics (0 to 5 Years) and At-Risk Patients (6 to 64 Years)Aged OutNo longer eligible based on patient's age to complete this topicRotavirus VaccinesAged OutNo longer eligible based on patient's age to complete this topic Insurance Care Teams Team MemberRelationshipSpecialtyStart DateEnd Date Ynes Mistry, HANDHOLE MACHINE OPERATOR [facility] [address] [place] [id number] PCP - General03/20/23
--- OUTSIDE RECORDS SUMMARY | 2025-06-17 08:27 | XMS_ITS | Encounter Summary ---
Author Organization [facility] Address [address] [place] [address] Care Team Providers Care Retail Reset Merchandiser Name Role Phone Unavailable Primary Care Provider Unavailabl e Encounter Details DateTypeDepartmentCare Team (Latest Contact Info)Xucivxrrzvt06/22/2025linisync Result Encounter [facility] External Department Unsolicited Britt Foy DO [address] [place], [facility] Social History Tobacco UseTypesPacks/DayYears UsedDateSmoking Tobacco: NeverSmokeless Tobacco: NeverAlcohol UseStandard Drinks/WeekCommentsNever0 (1 standard drink = 0.6 oz pure alcohol)Estimated Date of RycatwttTxssjqmmCys74/01/2025Based on last menstrual period of 09/16/2024Sex and Gender InformationValueDate Recorded Sex Assigned at BirthNot on fileLegal KhwXtgwne60/15/2023 11:47 PM EDTGender IdentityNot on fileSexual OrientationNot on filedocumented as of this encounter Plan of Treatment DateTypeDepartmentCare Team (Latest Contact Info)Hviuduhtlxr52/25/2025 11:00 AM ESTOffice Visit NOM[facility]zo SANTO [address] [place] [address] Regina Barton PA [address] [place], [place] [phone] 07/28/2025 4:00 PM ESTOffice Visit [facility] [address] [place] [phone] Britt Foy, DO [address] [place] [address] documented as of this encounter Goals GoalPatient Goal TypeAssociated ProblemsRecent ProgressPatient-Stated?Author Reminders Care PlanOB RemindersNoOpen Scheduling, Backgrounddocumented as of this encounter Procedures Procedure NamePriorityDate/TimeAssociated DiagnosisCommentsUS OB BPP W NON-IPQTHV5305/14/2025 10:20 PM EDT documented in this encounter Results * US OB BPP W NON-STRESS (05/14/2025 10:20 PM EDT)Anatomical Region LateralityModalityOtherSpecimen (Source)Anatomical Location / Laterality Collection Method / VolumeCollection TimeReceived Time05/14/2025 10:20 PM EDT Narrative 05/14/2025 10:23 PM EDT [facility] ?[address] ? [place] [address] ? Ultrasound Report ? Signed Patient: VINNY HERRERA ?MR#: [id number] : 2000 ?Acct:[id number] Age/Sex: 24 / F ?ADM Date: 05/14/25 Loc: US Attending Dr: Britt Foy D.O. Ordering Physician: Britt Foy D.O. Date of Service: 05/14/25 Procedure(s): OB BPP w non-stress Accession Number(s): [id number] cc: Britt Foy D.O.; Ynes Mistry FIELD OPERATIONS FARM MANAGER ? [facility] ? [address] [place] [address] ? [place] [address] ? Patient Name: VINNY HERRERA MRN: [facility]:[id number] ? date: 2000 ?Sex: F Assigned Patient Location: Current Patient Location: [facility] Accession/Order Number: [id number] Exam Date: 05/14/2025 ??16:00 ?Report Date: 05/14/2025 ??22:20 At the request of: BRITT ??LAW ??DO Procedure: ?? OB BPP w non-stress Ultrasound biophysical profile INDICATION: Gestational diabetes COMPARISON: 05/07/2025 FINDINGS/IMPRESSION:: Fetus cephalic position. ?? 88 score biophysical profile. ?? heart rate 1:30 beats per minutes. ??JAMAL 17.4 cm . Impression dictated by: Chevy Moreland M.D. ??05/14/2025 10:20 PM Dictation Location: [facility]- Electronically authenticated by: [id number] ??Y ?? Date: 05/14/2025 ??22:20 Dictated By: ?Chevy Moreland M.D. Signed By: ?05/14/25 2223 DD/ 19 TD/TT: ? Courtroom Reporter: Procedure Note Radiology, Radiologist, - 06/03/2025 [place] [address] Ultrasound Report Signed Patient: VINNY HERRERA CMR#: [id number] : 2000Acct:[id number] Age/Sex: 24 / FADM Date: 05/14/25 Loc: US Attending Dr: Britt Foy D.O. Ordering Physician: Britt Foy D.O. Date of Service: 05/14/25 Procedure(s): US OB BPP w non-stress Accession Number(s): [id number] cc: Britt Foy D.O.; Ynes Mistry FIELD OPERATIONS FARM MANAGER The [place] [phone] Patient Name: VINNY HERRERA MRN: [id number] date: 2000 Sex: F Assigned Patient Location: [place] Current Patient Location: [facility] Accession/Order Number: [id number] Exam Date: 05/14/2025 16:00 Report Date: 05/14/2025 22:20 At the request of: BRITT FOY DO Procedure: US OB BPP w non-stress Ultrasound biophysical profile INDICATION: Gestational diabetes COMPARISON: 05/07/2025 FINDINGS/IMPRESSION:: Fetus cephalic position. 8/8 score biophysical profile. heart rate 1:30 beats per minutes. JAMAL 17.4 cm . Impression dictated by: Chevy Moreland M.D. 05/14/2025 10:20 PM Dictation Location: [place] [address] Electronically authenticated by: [id number] Y Date: 2:20 Dictated By: Chevy Moreland M.D. Signed By:05/14/252222 DD/ 19 TD/TT: Courtroom Reporter: Authorizing ProviderResult TypeResult StatusCorey Law DOCLINISYNC IMAGINGFinal Result documented in this encounter Visit Diagnoses Not on filedocumented in this encounter Additional Health Concerns Active ProblemsNoted DateDiagnosed DateOB Eqsbewlia38/09/2025 documented as of this encounter
--- OUTSIDE RECORDS SUMMARY | 2025-06-17 08:27 | XMS_ITS | Encounter Summary ---
Author Organization [facility] Address [address], [address] [place] [address] Care Team Providers Care Camp Boss Name Role Phone Ynes Mistry RECORDINGS LIBRARIAN - COOK PICKLED MEAT Primary Care Provide r Encounter Details DateTypeDepartmentCare Team (Latest Contact Info)Vekbwjekktt33/13/2025bstract [facility] Primary Care [address] [place] [address] [address] [place] [address] Ynes Mistry, RECORDINGS LIBRARIAN - COOK PICKLED MEAT [address] [place] [phone] Social History Tobacco UseTypesPacks/DayYears UsedDateSmoking Tobacco: NeverSmokeless Tobacco: NeverAlcohol UseStandard Drinks/WeekCommentsNot Currently0 (1 standard drink = 0.6 oz pure alcohol)socialTHE [facility]IVERS[facility] UtilitiesAnswerDate RecordedIn the past 12 months has the electric, gas, oil, or water company threatened to shut off services in your home?No10/07/2024Overall Financial Resource Strain (CARDIA)AnswerDate RecordedHow hard is it for you to pay for the very basics like food, housing, medical care, and heating?Not hard at all07/13/2023HQ-2AnswerDate RecordedPHQ-9 Total Avtpn235Hunger Vital SignAnswerDate RecordedWithin the past 12 months, [...] steady place to sleep or slept in universal health serviceser (including now)?No07/13/2023Housing Stability Vital SignAnswerDate RecordedIn the [...] more.CommentsNoSex and Gender InformationValueDate RecordedSex Assigned at TnnnmQfcxqd79/28/2024 8:24 PM EDTLegal EyuTpdfcg06/10/2013 3:31 PM ESTGender JqkscouzErbuaw56/28/2024 8:24 PM EDTSexual OrientationNot on filedocumented as of this encounter Plan of Treatment Not on file documented as of this encounter Visit Diagnoses Not on filedocumented in this encounter Care Teams Team MemberRelationshipSpecialtyStart DateEnd Date Ynes Mistry, RECORDINGS LIBRARIAN - COOK PICKLED MEAT [address] [place], [place] [phone] PCP - GeneralFamily Nurse Practitioner08/02/22documented as of this encounter
--- OUTSIDE RECORDS SUMMARY | 2025-06-17 08:27 | XMS_ITS | Encounter Summary ---
Author Organization [facility] Address [address], [address] [place] [address] Care Team Providers Care Director Mortgage Name Role Phone Ynes Mistry CIRCUIT BOARD ASSEMBLER - WAITSTAFF CAPTAIN Primary Care Provide r Encounter Details DateTypeDepartmentCare Team (Latest Contact Info)Rcetnnubcus15/18/2025bstract [facility] Primary Care [address] [place] [address] [address] [place] [address] Ynes Mistry, CIRCUIT BOARD ASSEMBLER - WAITSTAFF CAPTAIN [address] [place] [phone] Social History Tobacco UseTypesPacks/DayYears UsedDateSmoking Tobacco: NeverSmokeless Tobacco: NeverAlcohol UseStandard Drinks/WeekCommentsNot Currently0 (1 standard drink = 0.6 oz pure alcohol)socialMER[facility] UtilitiesAnswerDate RecordedIn the past 12 months has the electric, gas, oil, or water company threatened to shut off services in your home?No10/07/2024Overall Financial Resource Strain (CARDIA)AnswerDate RecordedHow hard is it for you to pay for the very basics like food, housing, medical care, and heating?Not hard at all07/13/2023HQ-2AnswerDate RecordedPHQ-9 Total Ezphn988Hunger Vital SignAnswerDate RecordedWithin the past 12 months, [...] steady place to sleep or slept in [facility] (including now)?No07/13/2023Housing Stability Vital SignAnswerDate RecordedIn [...] more.CommentsNoSex and Gender InformationValueDate RecordedSex Assigned at UfiysHtdizn78/28/2024 8:24 PM EDTLegal BsbPmrsmv42/10/2013 3:31 PM ESTGender OjdqtyopUthfxy37/28/2024 8:24 PM EDTSexual OrientationNot on filedocumented as of this encounter Plan of Treatment Not on file documented as of this encounter Visit Diagnoses Not on filedocumented in this encounter Care Teams Team MemberRelationshipSpecialtyStart DateEnd Date Ynes Mistry, CIRCUIT BOARD ASSEMBLER - WAITSTAFF CAPTAIN [address] [place], [place] [phone] PCP - GeneralFamily Nurse Practitioner08/02/22documented as of this encounter
--- OUTSIDE RECORDS SUMMARY | 2025-06-17 08:27 | XMS_ITS | Clinical Summary ---
Author Organization [facility] Healthcare Address [address] [place] [address] Care Team Providers Care Community Chest Officer Name Role Phone Unavailable Primary Care Provider Unavailabl e Allergies No known active allergies Medications MedicationSigDispense QuantityRefillsLast FilledStart DateEnd DateStatus sertraline (Zoloft) 50 MG tablet Indications:Anxiety, generalizedTAKE 1 TABLET BY MOUTH EVERY DAY IN THE MORNING 30 tablet 304/5Active glucose blood test strip Indications:Gestational diabetes mellitus (GDM), antepartum, gestational diabetes method of control unspecified([facility])Use as instructed 100 each 1206//309270/6Active metFORMIN XR (Glucophage-XR) 500 MG 24 hr tablet Indications:Second trimester ([facility]),20 weeks gestation of ([facility])Take 2 tablets (1,000 mg) by mouth in the evening. Take with meals 60 tablet 507//439648/6Active pantoprazole (Protonix) 40 MG EC tablet Indications:23 weeks gestation of ([facility]),Elevated blood sugar level ,Gastroesophageal reflux disease without esophagitisTake 1 tablet (40 mg) by mouth in the morning. Take before meals. Do not crush, chew, or split. 30 tablet 1108//368205/6Active metoclopramide (Reglan) 10 MG tablet Indications:Gastroesophageal reflux disease without esophagitisTake 1 tablet (10 mg) by mouth in the morning and 1 tablet (10 mg) at noon and 1 tablet (10 mg) in the evening. Take before meals. Take 1 tablet by mouth 30 minutes prior to meals 3 times daily as needed for nausea. 90 tablet 5Active insulin pen needle 29G x 8mm [facility] Indications:Insulin controlled gestational diabetes mellitus (GDM) during , antepartum ([facility])Inject 1 each under the skin Daily 100 each 515Active insulin glargine (Lantus SoloStar) 100 UNIT/ML pen Indications:HyperglycemiaInject 17 Units under the skin at bedtime FILL ACCORDING TO INSURANCE COVERAGE 3 mL 5Active Zuranolone (Zurzuvae) 25 MG capsule Indications: DepressionTake 2 tablets by mouth at bedtime for 14 days 28 capsule 5Active insulin glargine (Lantus SoloStar) 100 UNIT/ML pen Indications:HyperglycemiaInject 15 Units under the skin at bedtime FILL ACCORDING TO INSURANCE COVERAGE 3 mL Discontinued(Dose adjustment) Active Problems ProblemNoted DateDiagnosed Date23 weeks gestation of ([facility]) 02/26/2025Elevated blood sugar level02/26/2025bnormal glucose level01/13/2023 Itlhajldw15/23/6875Edmsgciubhu27/23/2023yspareunia in vbzblm7311/30/2020Frequent UTI11/30/20200251Ovrqzmf73/07/2020Insomnia due to other mental /10/2020 Other djzpenx0505/02/2020Estimated Date of HnevtzvyXcqdezfeDpm07/01/2025 Based on last menstrual period of 09/16/2024 Resolved Problems ProblemNoted DateDiagnosed DateResolved DateMissed aactte67 Encounters DateTypeDepartmentCare NhpgMzhmavlamdh76/18/2025Telephone [facility] [address] [place] [address] [place] [address] Britt Foy, DO 5Clinisync Result Encounter NOMS External Department Unsolicited Britt Foy, DO 5Clinisync Result Encounter NOMS External Department Unsolicited Britt Foy, DO 5Clinisync Result Encounter NOMS External Department Unsolicited Britt Foy, DO 06/02/2025 1:10 PM ESTRoutine [facility] [address] [place] [address] Britt Foy, DO 37 weeks gestation of ([facility]); Third trimester ([facility]); Insulin controlled gestational diabetes mellitus (GDM) during , antepartum ([facility]); Gestational diabetes mellitus (GDM), antepartum, gestational diabetes method of control unspecified([facility])06/02/2025Telephone [facility] [address] [place] [address] Jo Ann Isabel LPN 06/02/2025bstract [facility] [address] [place] [address] Britt Foy, DO 05/30/2025Telephone [facility] [address] [place] [address] Britt Foy, DO 05/29/2025Telephone [facility] [address] [place] [address] Britt Foy, DO 5Clinisync Result Encounter NOMS External Department Unsolicited Britt Foy, DO 05/28/2025 2:30 PM ESTRoutine [facility] [address] [place] [address] Regina Cummins PA Third trimester ([facility]); 36 weeks gestation of ([facility])05/28/2025 2:00 PM ESTAncillary Procedure [facility] [address] [place] [address] Insulin controlled gestational diabetes mellitus (GDM) during , antepartum ([facility])05/28/2025linisync Result Encounter NOMS External Department Unsolicited Regina Cummins PA 05/21/2025linisync Result Encounter NOMS External Department Unsolicited Britt Foy, DO 05/14/2025 2:50 PM EDTRoutine [facility] [address] [place] [address] Britt Foy, DO Third trimester ([facility]); 34 weeks gestation of ([facility]); Insulin controlled gestational diabetes mellitus (GDM) during , antepartum ([facility]); Gestational diabetes mellitus (GDM), antepartum, gestational diabetes method of control unspecified([facility])05/14/2025linisync Result Encounter NOMS External Department Unsolicited Britt Foy, DO 05/14/2025amboo flowsheet [facility] [address] [facility] [address] Britt Foy, DO 05/12/2025linisync Result Encounter NOMS External Department Unsolicited Britt Foy, DO 05/08/2025linisync Result Encounter NOMS External Department Unsolicited Britt Foy, DO 05/02/2025bstract [facility] [address] [facility] [address] Britt Foy, DO 04/30/2025 3:00 PM EDTRoutine [facility] [address] [facility] [address] Tiffany Li NP Third trimester ([facility]); 32 weeks gestation of ([facility])04/30/2025linisync Result Encounter NOMS External Department Unsolicited Britt Foy, DO 04/30/2025amboo flowsheet [facility] [address] [facility] [address] Tiffany Li NP 04/27/20256547Xsczrg66/23/2025bstract [facility] [address] [place] [address] [place] [address] Britt Foy DO 04/14/2025 3:20 PM EDTRoutine [facility] [address] [facility] [phone] Regina Cummins PA Third trimester ([facility]); 30 weeks gestation of ([facility])04/14/2025amboo flowsheet [facility] [address] [place] [address] [place] [address] Regina Cummins PA 04/14/20253442Jnhpwm85/15/2025Telephone [facility] [address] [place] [address] [place] [phone] Elizabeth Ware MA 04/05/2025linisync Result Encounter NOMS External Department Unsolicited Regina Cummins PA 04/05/2025linisync Result Encounter NOMS External Department Unsolicited Regina Cummins PA 04/03/2025 3:30 PM EDTRoutine [facility] [address] [place] [address] [place] [phone] Regina Cummins PA 28 weeks gestation of ([facility]); Third trimester ([facility]); Dizziness; Gestational diabetes mellitus (GDM), antepartum, gestational diabetes method of control unspecified([facility]); History of miscarriage; Anemia, unspecified type; UTI vadoxpug46/11/2025amb flowsheet [facility] [address] [place] [address] [place] [phone] Regina Cummins PA 04/02/2025Telephone [facility] [address] [place] [address] [place] [phone] Suyapa Hazel LPN 04/01/2025Travelfrom Last 3 Months Family History RelationNameStatusCommentsDaughterAliveFatherAliveMotherAliveSisterAlive Social History Tobacco UseTypesPacks/DayYears UsedDateSmoking Tobacco: NeverSmokeless Tobacco: Never Tobacco Cessation:Counseling Given: Not Answered Alcohol UseStandard Drinks/WeekCommentsNever0 (1 standard drink = 0.6 oz pure alcohol)Estimated Date of RrccnwiqAmwfqlhhPlm50/01/2025ased on last menstrual period of 09/16/2024Sex and Gender InformationValueDate RecordedSex Assigned at BirthNot on fileLegal YykYipbdy79/15/2023 11:47 PM EDTGender IdentityNot on fileSexual OrientationNot on file Last Filed Vital Signs Vital SignReadingTime TakenCommentsBlood Wcthtryy040/80108/02/2024 1:22 PM EST Pulse--Temperature--Respiratory Rate--Oxygen Saturation--Inhaled Oxygen Concentration--Uvrice448 kg (237 lb 12.8 oz)06/02/2025 1:22 PM YEKDqbdca466.6 cm (5' 6 )01/30/2023 12:12 PM EDTBody Mass Index38.38001/30/2023 12:12 PM EDT Plan of Treatment DateTypeDepartmentCare Team (Latest Contact Info)Bznyzmehodz11/25/2025 11:00 AM ESTOffice Visit NOMRenzo SANTO [address] [place] [address] [place] [address] Regina Cummins PA [address] [place], [place] [phone] 07/28/2025 4:00 PM ESTOffice Visit NOMRenzo SANTO [address] [place] [address] [place] [address] Britt Foy DO [address] [place] [address] Health MaintenanceDue DateLast DoneCommentsCOVID-19 Vaccine (2024- season) /02/2021, 12/07/2020Influenza Vaccine (#1)2025Pneumococcal Vaccine: Pediatrics (0 to 5 Years) and At-Risk Patients (6 to 64 Years)Aged Out No longer eligible based on patient's age to complete this topic Goals GoalPatient Goal TypeAssociated ProblemsRecent ProgressPatient-Stated?Author Reminders Care PlanOB RemindersNoOpen Scheduling, Background Procedures Procedure NamePriorityDate/TimeAssociated DiagnosisCommentsALL CBC WITH AUTO EMIIUpsxftn16/18/2025 6:18 AM EST ALL CBC WITH AUTO LUKZEgxhrqq58/17/2025 6:10 AM EST URINE CULTURE, NBTGZRLEioldiy32/17/2025 5:50 AM EST [facility] DRUG SCREEN RAPID (URINE)Tamuirf4006/09/2025 5:50 AM EST [facility] URINALYSIS, WITH THDCHRNPDHYNcmyrbn65/17/2025 5:50 AM EST US OB BPP W NON-GZRMKA0906/05/2025 8:26 AM EST POCT URINALYSIS QWFVJVSXXkzwcwl17/10/2025 1:25 PM EST 37 weeks gestation of ([facility]) Third trimester ([facility]) US OB BPP W NON-LBFWRP3605/29/2025 10:10 AM EST POCT URINALYSIS IUSONVODVtmrtic19/05/2025 2:52 PM EST 36 weeks gestation of ([facility]) STREP GP B CULTURE+PEDMPyhppzz09/05/2025 2:40 PM EST US OB FOLLOW UP TRANSABDOMINAL KXPTVJFOEnvdoxd40/05/2025 2:26 PM EST Insulin controlled gestational diabetes mellitus (GDM) during , antepartum ([facility]) US OB BPP W NON-GYMMGC4205/21/2025 7:56 PM EDT US OB BPP W NON-GEUSSV5205/14/2025 10:20 PM EDT POCT URINALYSIS XOEHZJMDLmdkmjf43/22/2025 3:13 PM EDT 34 weeks gestation of ([facility]) URINE CULTURE, IZZOFDSFxtctff13/20/2025 9:55 AM EDT [facility] UA (CLEAN/CATCH) MOWER SHARPENER/MICRO IF IND.Cordjmb4405/12/2025 9:55 AM EDT US OB BPP W NON-NHNOPI8705/08/2025 12:28 AM EDT US OB BPP W NON-QEBSBH8004/30/2025 10:59 PM EDT POCT URINALYSIS GBJDUZLMDrhjpdn14/08/2025 3:19 PM EDT 32 weeks gestation of ([facility]) POCT URINALYSIS KFHXPNUOPvgrlex23/22/2025 3:54 PM EDT Third trimester ([facility]) US OB AWYUJR1404/05/2025 12:08 PM EDT ALL CBC WITH AUTO VZCJNsbegll22/13/2025 10:33 AM EDT URINARY TRACT INFECTION (HTRX)Nnzvmql8104/03/2025 3:53 PM EDT POCT URINALYSIS QXWMJVRNAbgmsif03/11/2025 3:51 PM EDT 28 weeks gestation of ([facility]) Third trimester ([facility]) from Last 3 Months Results * (ABNORMAL) ALL CBC WITH AUTO DIFF (06/10/2025 6:18 AM EST) Only the most recent of3 resultswithin the time period is included. ComponentValueRef RangeTest MethodAnalysis TimePerformed AtPathologist Signature [facility] WBC10.84.0 - 11.0 10 3/uLTBHTBH RBC3.15(L)4.20 - 5.40 10 6/uLTBHTBH HGB9.3 (L)12.0 - 16.0 g/dLTBHTBH HCT28.2(L)36.0 - 48.0 %TBHTBH MCV89.581.0 - 99.0 fLTBH TB[facility] MCH29.526.7 - 34.0 pgTBHTBH MCHC33.029.9 - 35.2 g/dLTBHTBH RDW14.411.0 - 15.0 %TBHTBH VYR359010 - 450 10 3/uLTBHTBH MPV9.0(L)9.5 - 13.5 fLTBHNEUTROPHILS PERCENT AUTO68.843.0 - 75.0 %TBHLYMPHOCYTES PERCENT AUTO21.820.5 - 60.0 %[facility]H MONOCYTES PERCENT AUTO7.91.7 - 12.0 %TBHTBH EO %0.6(L)0.9 - 7.0 %TBHBASOPHILS PERCENT AUTO0.30.2 - 2.0 %TBHIMMATURE GRANULOCYTES PCT AUTO0.6(H)0.0 - 0.5 %[facility] NEUTROPHILS ABSOLUTE AUTO7.4(H)1.4 - 6.5 10 3/uLTBHLYMPHOCYTES ABSOLUTE AUTO2.4 1.2 - 3.8 10 3/uLTBHMONOCYTES ABSOLUTE AUTO0.9(H)0.3 - 0.8 10 3/uLTBHTBH EO #0.1 0.0 - 0.7 10 3/uLTBHBASOPHILS ABSOLUTE AUTO0.00.0 - 0.1 10 3/uLTBHIMMATURE GRANULOCYTES ABS AUTO0.06(H)0.00 - 0.03 10 3/uLTBHSpecimen (Source)Anatomical Location / LateralityCollection Method / VolumeCollection TimeReceived Time 06/10/2025 6:18 AM EST06/10/2025 6:21 AM EST Narrative CLIN[facility]NC - 06/10/2025 6:25 AM EST Authorizing ProviderResult TypeResult StatusCorey Law DOCLINISYNCFinal Result Performing OrganizationAddressCity/State/ZIP CodePhone Number [facility] * URINE CULTURE, ROUTINE (06/09/2025 5:50 AM EST) Only the most recent of2 resultswithin the time period is included. ComponentValueRef RangeTest MethodAnalysis TimePerformed AtPathologist Signature URINE CULTURE, ROUTINE ??Urine Culture, Routine TBHURINE CULTURE, ROUTINECulture shows less than 10,000 colony forming units of bacteria perTBHURINE CULTURE, ROUTINEmilliliter of urine. This colony count is not generally consideredTBHURINE CULTURE, ROUTINEto be clinically significant. TBHURINE CULTURE, ROUTINEPerformed at: [facility] LabCaro CenterTBHURINE CULTURE, [id number] [place], [place] [id number] CULTURE, ROUTINELab Director: Elian Mccray PhD, Phone: [phone] (Source)Anatomical Location / LateralityCollection Method / VolumeCollection TimeReceived Time 06/09/2025 5:50 AM EST06/09/2025 6:31 AM EST Narrative [facility] - 06/10/2025 8:08 PM EST Authorizing ProviderResult TypeResult StatusCorey Law DOLAB BLOOD ORDERABLES Final ResultPerforming OrganizationAddressCity/State/ZIP CodePhone Number [facility] * [facility] DRUG SCREEN RAPID (URINE) (06/09/2025 5:50 AM [...] Law DOCLINISYNCFinal Result Performing OrganizationAddressCity/State/ZIP CodePhone Number [facility] * (ABNORMAL) [facility] URINALYSIS, WITH MICROSCOPIC (06/09/2025 [...] CodePhone Number CLINIS[facility]NC [facility] * US OB BPP W NON-STRESS (06/05/2025 8:26 AM EST) Only the most recent of6 resultswithin the time period is included. Anatomical RegionLateralityModalityOtherSpecimen (Source)Anatomical Location / LateralityCollection Method / VolumeCollection TimeReceived Time06/05/2025 8:26 AM EST Narrative 06/05/2025 8:28 AM EST [facility] ?[address] ? [place] [id number] ? Ultrasound Report ? Signed ? Patient: VINNY HERRERA ?MR#: [id number] ?? : 2000 ?Acct:[id number] ?? Age/Sex: 24 / F ?ADM Date: 06/04/25 ?? Loc: US ? Attending Dr: Britt Foy D.O. ? Ordering Physician: Britt Foy D.O. ?? Date of Service: 06/04/25 ?? Procedure(s): US OB BPP w non-stress ?? Accession Number(s): [id number] ? cc: Britt Foy D.O.; Ynes Mistry ARTIFICIAL MARBLE WORKER ? [facility] ? [address] ? [place] [address] ? Patient Name: ?? VINNY HERRERA ? MRN: [facility]:[id number] ? date: 2000 ?Sex: F ?? Assigned Patient Location: [facility]BC ?? Current Patient Location: ? Accession/Order Number: [id number] ?? Exam Date: 06/04/2025 ??16:09 ?Report Date: [...] Dictation Location: RADIO-PC-02 ? Electronically authenticated by: [id number] ??Y ?? Date: 06/05/2025 ??08:26 ? Dictated By: ?Criselda Flores M.D. ? Signed By: ?/13/25 0828 ? DD/ 0826 ? TD/TT: ? Court Recorder: Procedure Note Radiology, Radiologist, - 06/05/2025 [place] [address] Ultrasound Report Signed Patient: VINNY HERRERA CMR#: [id number] : 2000Acct:[id number] Age/Sex: 24 / FADM Date: 06/04/25 Loc: US Attending Dr: Britt Foy D.O. Ordering Physician: Britt Foy D.O. Date of Service: 06/04/25 Procedure(s): US OB BPP w non-stress Accession Number(s): [id number] cc: Britt Foy D.O.; Ynes Mistry ARTIFICIAL MARBLE WORKER The [place] [id number] Patient Name: VINNY HERRERA MRN: [facility]:[id number] date: 2000 Sex: F Assigned Patient Location: [facility] Current Patient Location: Accession/Order Number: [id number] Exam Date: 06/04/2025 16:09 Report Date: 06/05/2025 [...] Flores M.D. 06/05/2025 8:26 AM Dictation Location: [place] [address] Electronically authenticated by: [id number] Y Date: 508:26 Dictated By: Criselda Flores M.D. Signed By:06/05/25827 DD/ 5 TD/TT: Court Recorder: Authorizing ProviderResult TypeResult StatusCorey Law DOCLINISYNC IMAGINGFinal Result * POCT urinalysis dipstick manually resulted (06/02/2025 1:25 PM EST) Only the most recent of6 [...] Location / LateralityCollection Method / VolumeCollection TimeReceived CtitClubu63/10/2025 1:25 PM EST Narrative Authorizing ProviderResult TypeResult StatusCorey Law DOPOINT OF CARE TEST ENTER/EDIT ORDERABLESFinal Result * STREP GP B CULTURE+RFLX (05/28/2025 2:40 PM EST)ComponentValueRef RangeTest MethodAnalysis TimePerformed AtPathologist SignatureSTREP GP B CULTURE+RFLX ??Strep Gp B Culture+Rflx TBHSTREP GP B CULTURE+RFLXNegativeTBHSTREP GP B CULTURE+RFLXCenters for Disease Control and Prevention (CDC) andTBHSTREP GP B CULTURE+RFLXAmersanta ana hospital medical center Congress of Obstetricians and GynecologistsTBHSTREP GP B [...] is noted.TBHSTREP GP B CULTURE+RFLX Performed at: [facility]TBHSTREP GP B CULTURE+[id number] [place], [place] [id number] GP B CULTURE+RFLXLab Director: Elian Mccray PhD, Phone: [phone] (Source)Anatomical Location / Laterality Collection Method / VolumeCollection TimeReceived Time05/28/2025 2:40 PM EST 05/28/2025 9:05 PM EST Narrative [facility] - 06/02/2025 5:09 PM EST Authorizing ProviderResult TypeResult StatusAmy Maria G PALAB BLOOD ORDERABLES Final ResultPerforming OrganizationAddressCity/State/ZIP CodePhone Number CLINNIESHA TB * US OB follow up transabdominal approach [...] DOIMG OB US PROCEDURES Final Result * (ABNORMAL) [facility] UA (CLEAN/CATCH) MOWER SHARPENER/MICRO IF IND. (05/12/2025 9:55 AM EDT) ComponentValueRef [...] Volume Collection TimeReceived Time04/05/2025 12:08 PM EDT [facility] 04/05/2025 12:11 PM EDT [facility] ?[address] ? [place] [address] ? Ultrasound Report ? Signed ? Patient: VINNY HERRERA ?MR#: [id number] ?? : 2000 ?Acct:[id number] ?? Age/Sex: 24 / F ?ADM Date: 04/05/25 ?? Loc: US ? Attending Dr: Regina Cummins ? Ordering Physician: Regina Cummins ?? Date of Service: 04/05/25 ?? Procedure(s): US OB growth ?? Accession Number(s): [id number] ? cc: Regina Cummins; Physician,Non-Staff M.D. ? [facility] ? [address] ? [place] [address] ? Patient Name: ?? VINNY HERRERA ? MRN: [facility]:[id number] ? date: 2000 ?Sex: F ?? Assigned Patient Location: US ?? Current Patient Location: LAB ?? Accession/Order Number: [id number] ?? Exam Date: 04/05/2025 ??10:00 ?Report Date: [...] Dictation Location: RADIO-PC-20 ? Electronically authenticated by: [id number] ??Y ?? Date: 04/05/2025 ??12:08 ? Dictated By: ?Daryn Peraza D.O. ? Signed By: ?04/05/25 1211 ? DD/ 1208 ? TD/TT: ? Court Recorder: Procedure Note Radiology, Radiologist, MD - 04/05/2025 The [place] [id number] Ultrasound Report Signed Patient: VINNY HERRERA CMR#: [id number] : 2000Acct:[id number] Age/Sex: 24 / FADM Date: 04/05/25 Loc: US Attending Dr: Regina Cummins Ordering Physician: Regina Cummins Date of Service: 04/05/25 Procedure(s): US OB growth Accession Number(s): [id number] cc: Regina Cummins; Physician,Non-Staff M.D. The [address] [address] Patient Name: VINNY HERRERA MRN: [id number]:[id number] date: 2000 Sex: F Assigned Patient Location: US Current Patient Location: LAB Accession/Order Number: [id number] Exam Date: 04/05/2025 10:00 Report Date: 04/05/2025 [...] Peraza M.D. 04/05/2025 12:08 PM Dictation Location: [employer] Electronically authenticated by: [id number] Y Date: 2:08 Dictated By: Daryn Peraza D.O. Signed By:04/05/25 1211 DD/ 1208 TD/TT: Court Recorder: Authorizing ProviderResult TypeResult StatusAmy [facility] IMAGINGFinal Result * URINARY TRACT INFECTION (HTRX) (04/03/2025 3:53 PM EDT)ComponentValueRef Range Test MethodAnalysis TimePerformed AtPathologist SignatureACINETOBACTER YSJKPACE388.961 - 24.689 ppm04/04/2025 7:51 AM EDTHealthTrackRx at LabPort ACINETOBACTER BAUMANIINot Bgpdorud58.961 - 24.689 ppm04/04/2025 7:51 AM EDT [facility] at LabPortCITROBACTER KDHUVTQW112.000 - 32.015 ppm04/04/2025 7:51 AM EDTHealthTrackRx at LabPortCITROBACTER FREUNDIINot Hgyevnag75.000 - 32.015 ppm04/04/2025 7:51 AM EDTHealthTrackRx at LabPortENTEROBACTER AEROGENES, XFBDIHX424.000 - 32.290 ppm04/04/2025 7:51 AM EDTHealthTrackRx at LabPortENTEROBACTER AEROGENES, CLOACAENot Mdrweume70.000 - 32.290 ppm 04/04/2025 7:51 AM EDTHealthTrackRx at LabPortENTEROCOCCUS FAECALIS, FAECIUM0 26.000 - 33.043 ppm04/04/2025 7:51 AM EDTHealthTrackRx at LabPortENTEROCOCCUS FAECALIS, FAECIUMNot Rfhamqtd10.000 - 33.043 ppm04/04/2025 7:51 AM EDT [facility] at LabPortESCHERICHIA IEON274.000 - 28.500 ppm04/04/2025 7:51 AM EDTHealthTrackRx at LabPortESCHERICHIA COLINot Twozludk41.000 - 28.500 ppm 04/04/2025 7:51 AM EDTHealthTrackRx at LabPortKLEBSIELLA PNEUMONIAE, OXYTOCA0 23.000 - 31.865 ppm04/04/2025 7:51 AM EDTHealthTrackRx at LabPortKLEBSIELLA PNEUMONIAE, OXYTOCANot Uyszllga66.000 - 31.865 ppm04/04/2025 7:51 AM EDT [facility] at LabPortMORGANELLA RRLEIFIP464.961 - 24.689 ppm04/04/2025 7:51 AM EDTHealthTrackRx at LabPortMORGANELLA MORGANIINot Egcwpthu75.961 - 24.689 ppm04/04/2025 7:51 AM EDTHealthTrackRx at LabPortPROTEUS MIRABILIS, VULGARIS0 23.000 - 28.500 ppm04/04/2025 7:51 AM EDTHealthTrackRx at LabPortPROTEUS MIRABILIS, VULGARISNot Kuyrdsbv36.000 - 28.500 ppm04/04/2025 7:51 AM EDT [facility] at LabPortPSEUDOMONAS HBRWZJPXUK925.000 - 31.801 ppm04/04/2025 7:51 AM EDTHealthTrackRx at LabPortPSEUDOMONAS AERUGINOSANot Nhkivfcm92.000 - 31.801 ppm04/04/2025 7:51 AM EDTHealthTrackRx at LabPortSTAPHYLOCOCCUS AUREUS0 26.000 - 31.595 ppm04/04/2025 7:51 AM EDTHealthTrackRx at [facility] STAPHYLOCOCCUS AUREUSNot Rjiqhoxm92.000 - 31.595 ppm04/04/2025 7:51 AM EDT [facility] at LabPortSTREPTOCOCCUS AGALACTIAE (GROUP B STREP)026.000 - 32.435 ppm04/04/2025 7:51 AM EDTHealthTrackRx at LabPortSTREPTOCOCCUS AGALACTIAE (GROUP B STREP)Not Tlsstrme32.000 - 32.435 ppm04/04/2025 7:51 AM EDTHealthTrackRx at LabPortCANDIDA ALBICANS, PARAPSILOSIS, MHQCVUCZUC868.000 - 30.347 ppm04/04/2025 7:51 AM EDTHealthTrackRx at LabPortCANDIDA ALBICANS, PARAPSILOSIS, TROPICALISNot Ggyhipuw32.000 - 30.347 ppm04/04/2025 7:51 AM EDT [facility]PortCANDIDA OXFOQDWV070.000 - 31.618 ppm04/04/2025 7:51 AM EDTHealthTrackRx at LabPortCANDIDA GLABRATANot Ixqhuhie33.000 - 31.618 ppm 04/04/2025 7:51 AM EDTHealthTrackRx at LabPortCANDIDA SXGDXI398.000 - 30.873 ppm04/04/2025 7:51 AM EDTHealthTrackRx at LabPortCANDIDA KRUSEINot Detected 23.000 - 30.873 ppm04/04/2025 7:51 AM EDTHealthTrackRx at LabPortSERRATIA PTCZZTYRDC857.000 - 31.581 ppm04/04/2025 7:51 AM EDTHealth[facility]Rx at LabPort SERRATIA MARCESCENSNot Qqqemmnf85.000 - 31.581 ppm04/04/2025 7:51 AM EDT [facility] at LabPortSTREPTOCOCCUS PYOGENES (GROUP A STREP)019.961 - 24.689 ppm04/04/2025 7:51 AM EDTHealthTrackRx at LabPortSTREPTOCOCCUS PYOGENES (GROUP A STREP)Not Kkzinoux65.961 - 24.689 ppm04/04/2025 7:51 AM EDT [facility] at LabPortSTAPHYLOCOCCUS EPIDERMIDIS, HAEMOLYTICUS, LUGDUNENSIS, SAPROPHYTICUS (EUBIO376.961 - 24.689 ppm04/04/2025 7:51 AM EDTHealthTrackRx at LabPortSTAPHYLOCOCCUS EPIDERMIDIS, HAEMOLYTICUS, LUGDUNENSIS, SAPROPHYTICUS (URINANot Jfjayosi26.961 - 24.689 ppm04/04/2025 7:51 AM EDTHealthTrackRx at EvergreenHealthSTAPHYLOCOCCUS EPIDERMIDIS, HAEMOLYTICUS, LUGDUNENSIS, SAPROPHYTICUS (JOFAC584.961 - 24.689 ppm04/04/2025 7:51 AM EDTHealthTrackRx at [facility]St[facility] STAPHYLOCOCCUS EPIDERMIDIS, HAEMOLYTICUS, LUGDUNENSIS, SAPROPHYTICUS (URINANot Jmarpuxq83.961 - 24.689 ppm04/04/2025 7:51 AM EDTHealthTrackRx at [facility] Specimen (Source)Anatomical Location / LateralityCollection Method / Volume Collection TimeReceived WjtvVlqsx94/11/2025 3:53 PM EDT04/04/2025 1:35 AM EDT Narrative Authorizing ProviderResult TypeResult StatusAmy Maria G CASILLAS BLOOD ORDERABLES Final ResultPerforming OrganizationAddressCity/State/ZIP CodePhone Number [facility] [address] [place] [address] from Last 3 Months Additional Health Concerns Active ProblemsNoted DateDiagnosed DateOB Qpztevgva86/09/2025 Insurance
--- OUTSIDE RECORDS SUMMARY | 2025-06-17 08:27 | XMS_ITS | Encounter Summary ---
Author Organization [facility] Address [address] [place] [address] Care Team Providers Care Layboy Operator Name Role Phone Unavailable Primary Care Provider Unavailabl e Encounter Details DateTypeDepartmentCare Team (Latest Contact Info)Fdabjfkgjam62/20/2025linisync Result Encounter [facility]OMS External Department Unsolicited Mukul Foy DO [address] [facility] [address] [place], [facility]11 Social History Tobacco UseTypesPacks/DayYears UsedDateSmoking Tobacco: NeverSmokeless Tobacco: NeverAlcohol UseStandard Drinks/WeekCommentsNever0 (1 standard drink = 0.6 oz pure alcohol)Estimated Date of TaugyahpGpxuyebwOjk81/01/2025Based on last menstrual period of 09/16/2024Sex and Gender InformationValueDate Recorded Sex Assigned at BirthNot on fileLegal HptUarwon04/15/2023 11:47 PM EDTGender IdentityNot on fileSexual OrientationNot on filedocumented as of this encounter Plan of Treatment DateTypeDepartmentCare Team (Latest Contact Info)Gbocoforboc70/25/2025 11:00 AM ESTOffice Visit NOMRenzo SANTO [address] [place] [address] Regina Barton PA [address] [facility] [address] [place], [place] [address] 07/28/2025 4:00 PM ESTOffice Visit [facility] [address] [place] [address] Mukul Foy, [address] [facility] [place] [address] documented as of this encounter Goals GoalPatient Goal TypeAssociated ProblemsRecent ProgressPatient-Stated?Author Reminders Care PlanOB RemindersNoOpen Scheduling, Backgrounddocumented as of this encounter Procedures Procedure NamePriorityDate/TimeAssociated DiagnosisCommentsURINE CULTURE, EYHHKQUCaqsuic79/20/2025 9:55 AM EDT [facility] UA (CLEAN/CATCH) PIG CASTER/MICRO IF IND.Xsgyhja9205/12/2025 9:55 AM EDT documented in this encounter Results * URINE CULTURE, ROUTINE (05/12/2025 9:55 AM EDT)ComponentValueRef RangeTest MethodAnalysis TimePerformed AtPathologist SignatureURINE CULTURE, ROUTINE ??Urine Culture, Routine TBHURINE CULTURE, ROUTINEMixed urogenital floraTBHURINE CULTURE, ITYZTVW90,000- 25,000 colony forming units per mLTBHURINE CULTURE, ROUTINEPerformed at: [facility] HospitalTBHURINE CULT[facility], [id number] [place], [place] [address]LIR URINE CULTURE, ROUTINELab Director: Elian Mccray PhD, Phone: [phone] Specimen (Source)Anatomical Location / LateralityCollection Method / Volume Collection TimeReceived Time05/12/2025 9:55 AM EDT1 10:35 AM EDT Narrative [facility] - 05/13/2025 11:10 PM EDT Authorizing ProviderResult TypeResult StatusCorey Law DOLAB BLOOD ORDERABLES Final ResultPerforming OrganizationAddressCity/State/ZIP CodePhone Number CLIN[facility]NC [facility] * (ABNORMAL) [facility] UA (CLEAN/CATCH) PIG CASTER/MICRO IF IND. (05/12/2025 9:55 AM EDT) ComponentValueRef [...] DOCLINISYNCFinal Result Performing OrganizationAddressCity/State/ZIP CodePhone Number [facility] documented in this encounter Visit Diagnoses Not on filedocumented in this encounter Additional Health Concerns Active ProblemsNoted DateDiagnosed DateOB Mdibzcoqt47/09/2025 documented as of this encounter
--- OUTSIDE RECORDS SUMMARY | 2025-06-17 08:27 | XMS_ITS | Clinical Summary ---
Author Organization [facility] Address [address], [address] [place] [address] Care Team Providers Care Yarn Dumper Name Role Phone Ynes Mistry LINE WELDER - COMPUTER PATTERNMAKER Primary Care Provide r Allergies No known [...] vaginally /26/2025Active sertraline (ZOLOFT) 25 MG tablet TAKE 1 TABLET BY MOUTH EVERY DAY 30 tablet 5Active sertraline (ZOLOFT) 25 MG tablet Take 1 tablet by mouth daily 30 tablet Discontinued Active Problems ProblemNoted DateDiagnosed DateGastroesophageal reflux gavpotk7911/12/2024Other hyperlipidemia [E78.49]06/04/20244297Qwigfca42/12/2024Hepatic siosvofqn34/14/2024 Elevated liver qaoklss8103/01/2024Mixed wljmscwhsghfev72/30/2024Iron deficiency lbaokv2810/25/2023Gestational diabetes mellitus (GDM) affecting second 07/24/20228498Hvjxpmr58/07/2020Seasonal allergic tovuluqm71/07/2020Other fatigue 05/02/2020 Resolved Problems ProblemNoted DateDiagnosed DateResolved DateSore hgpibj38503/ne /Irregular nwlbob17/Frequent UTI11/30/2020 02/20/2024yspareunia in vauhzf81/Insomnia due to other mental kkcebbur48 Encounters DateTypeDepartmentCare BzvlWmxuqmrvcsq60/20/20[address] [place] [address] Ynes Mistry, LINE WELDER - COMPUTER PATTERNMAKER [address] [place] [address] [address] [place] [address] Ynes Mistry, LINE WELDER - COMPUTER PATTERNMAKER [address] [place] [address] [address] [place] [address] Ynes Mistry, LINE WELDER - COMPUTER PATTERNMAKER [address] [place] [address] [address] [place] [address] Ynes Mistry, LINE WELDER - COMPUTER PATTERNMAKER [address] [place] [address] [address] [place] [address] Ynes Mistry, LINE WELDER - COMPUTER PATTERNMAKER [address] [place] [address] [address] [place] [address] Ynes Mistry, LINE WELDER - COMPUTER PATTERNMAKER 06/02/2025Orders Only [address] [place] [address] ProviderYuval MD 05/28/2025Refill [address] [place] [address] Ynes Mistry, LINE WELDER - COMPUTER PATTERNMAKER Medication Oqrvcz6405/22/2025Orders Only [address] [place] [address] Ynes Mistry, LINE WELDER - COMPUTER PATTERNMAKER 05/13/2025Orders Only [address] [place] [address] ProviderYuval MD 05/01/2025Orders Only [address] [place] [address] Provider, MD Yuval from Last 3 Months Immunizations ImmunizationAdministration DatesNext DueCOVID-19, Inactive, PFIZER PURPLE top, DILUTE for use, (age 12 y+)12/29/2020,9308UXyY60/29/2004,03/13/2000, 03/12/1999,01/18/1999,1998DTaP, INFANRIX, (age 6w-6y), IM, 0.5mL11/20/2003 ,03/13/2000,03/12/1999,01/18/1999,1998HPV Quadrivalent (Gardasil) 09/20/2017,05/01/2017,02/24/2017Hep A, HAVRIX, VAQTA, (age 12m-18y), IM, 0.5mL 08/19/2011,02/09/2011Hep B, ENGERIX-B, RECOMBIVAX-HB, (age - 19y), IM, 0.5mL06/09/1999,1998,1998Hepatitis A Ped/Adol (Vaqta)08/19/2011, 02/09/2011Hib PRP-T, ACTHIB (age 2m-5y, Adlt Risk), HIBERIX (age 6w-4y, Adlt Risk), IM, 0.5mL03/13/2000,03/12/1999,01/18/1999,1998MMR, PRIORIX, M-M-R II, (age 12m+), SC, 0.5mL04,12/22/1999Meningococcal ACWY Vaccine 2014Meningococcal ACWY, MENACTRA (MenACWY-D), (age 9m-55y), IM, 0.5mL 03/11/2016,01/12/2011Poliovirus, IPOL, (age 6w+), SC/IM, 0.5mL04, 03/13/2000,01/18/1999,1998TDaP, ADACEL (age 10y-64y), BOOSTRIX (age 10y+), IM, 0.5mL06/19/2011Varicella, VARIVAX, (age 12m+), SC, 0.5mL02/09/2011, 12/22/1999 Family History Medical HistoryRelationNameCommentsHigh CholesterolFatherDadBreast Cancer Maternal GrandmotherBlairObesityMotherMomOtherOtherNo family h/o DVTBreast CancerPaternal GrandmotherRankerDiabetesSisterEmilyRelationNameStatusComments FatherDadAliveMaternal GrandfatherDeceasedMaternal GrandmotherBlairAliveMother MomAliveOtherOtherPaternal GrandfatherDeceasedPaternal GrandmotherRankerAlive SisterEmilyAlive Social History Tobacco UseTypesPacks/DayYears UsedDateSmoking Tobacco: NeverSmokeless Tobacco: Never Tobacco Cessation:Counseling Given: Not Answered Alcohol UseStandard Drinks/WeekCommentsNot Currently0 (1 standard drink = 0.6 oz pure alcohol)socialWE[facility] UtilitiesAnswerDate RecordedIn the past 12 months has the [employer], gas, oil, or water [employer] threatened to shut off services in your home?No10/07/2024Overall Financial Resource Strain (CARDIA)AnswerDate Recorded How hard is it for you to pay for the very basics like food, housing, medical care, and heating?Not hard at all07/13/2023HQ-2AnswerDate RecordedPHQ-9 Total Kofdg143Hunger Vital SignAnswerDate RecordedWithin the past 12 months, [...] steady place to sleep or slept in [place] (including now)?No07/13/2023Housing Stability Vital SignAnswerDate RecordedIn the [...] more.CommentsNoSex and Gender InformationValueDate RecordedSex Assigned at BnpzzCqcjdt26/28/2024 8:24 PM EDTLegal XtzYrwrsw00/10/2013 3:31 PM ESTGender KqotyxhxBbbmme97/28/2024 8:24 PM EDTSexual OrientationNot on file Last Filed Vital Signs Vital SignReadingTime TakenCommentsBlood Jnkefmjx837/7204 11:39 AM EDT Qznsi8582 11:39 AM QFIZuwzzfcrpil04.1 ??C (96.9 ??F)11/12/2024 11:39 AM EDTRespiratory Fakx039910/07/2024 1:43 PM EDTOxygen Rgioismchs01%11/12/2024 11:39 AM EDTInhaled Oxygen Concentration--Vhxigh35.1 kg (203 lb)11/12/2024 11:39 AM CXQRatvso434.1 cm (5' 5 )10/07/2024 1:43 PM EDTBody Mass Index33.78010/07/2024 1:43 PM EDT Plan of Treatment Health MaintenanceDue DateLast DoneCommentsDTaP/Tdap/Td vaccine (7 - Td or Tdap) , 11/20/2003, 11/20/2003, Additional history existsFlu vaccine (#1)5COVID-19 Vaccine ( season)506/02/2021, 1Depression Avojse21601/, 08/07/2024Pap smear07/15/2027 07/15/2024, 07/15/2023, 07/05/2023, Additional history existsHepatitis B vaccine Kcxhewxln34/17/1999, 1998, 1998Hib omobijsKpmvyftrf59/21/2000, 03/12/1999, 01/18/1999, Additional history existsPolio vaccineCompleted 11/20/2003, 03/13/2000, 01/18/1999, Additional history existsVaricella vaccine Gxxwebfjx27/20/2011, 12/22/1999Hepatitis A xaxinjhKdtzlecxg17/27/2012, 08/19/2011, 02/09/2011, Additional history existsMeningococcal (ACWY) vaccine Exukkaled24/19/2016, 2014, 01/12/2011HPV opkwpkmAedeurpbh58/28/2018, 05/01/2017, 02/24/2017HIV vzcyvzRrurmmmpn17/12/2020Chlamydia/GC screen Fwbljbwhmkhp23/29/2021, 03/03/2020, 02/21/2019, Additional history exists Hepatitis C nipizoJsskslvgp04/27/2024Depression MonitoringDiscontinued 08/07/2024, 08/07/20249893KbrfduLzcyisvprhxf16/27/2025, 05/20/2024, 02/16/2024, Additional history existsMeningococcal B vaccineAged OutNo longer eligible based on patient's age to complete this topicPneumococcal 0-49 years VaccineAged Out No longer eligible based on patient's age to complete this topic Procedures Procedure NamePriorityDate/TimeAssociated DiagnosisCommentsCHG BIOPHYSICAL PROFILE NON-STRESS WVPVMDOUfpvdru86/05/2025 4:53 PM ESTBIOPHYSICAL PROFILE Hewypzn16/29/2025CHG BIOPHYSICAL PROFILE NON-STRESS TESTINGRoutine 05/07/2025 3:54 PM EDTBIOPHYSICAL PROFILE W/LEKWphdlkq36/08/2025 11:39 AM EDTHM PAP CLBVFWngpgtq04/23/2024 LIPID RSHRGIzbklqd12/28/2024 9:59 AM EDT Mixed hyperlipidemia HEPATITIS C DEODRNEIQxfhyyd13/27/2024 8:25 AM EDT Need for hepatitis C screening test Wellness examination C.TRACHOMATIS N.GONORRHOEAE DNA, KANEIQfroqwl41/29/2021 1:57 PM EDT Frequent UTI HIV YMIRMPQgkzatn09/12/2020 3:27 PM EDT Encounter for screening for HIV from Last 3 Months or Most Recently Relevant to Health Maintenance Results * CHG BIOPHYSICAL PROFILE NON-STRESS TESTING (05/28/2025 4:53 PM EST) Only the most recent of2 resultswithin the time period is included. Narrative Authorizing ProviderResult TypeResult StatusHistorical Provider MDPR IMAGING Final Result * Biophysical profile (05/21/2025) Narrative Authorizing ProviderResult TypeResult StatusHistorical Provider SHAISTA GYNE ORDERABLESFinal Result * BIOPHYSICAL PROFILE W/NST [...] RangeTest MethodAnalysis TimePerformed AtPathologist SignatureHepatitis C AbNONREACTIVE TUEIFNPJSES09/27/2024 8:25 AM EDTMERCY LABORATORIESComment: ? The hepatitis [...] / Volume Collection TimeReceived TimeBloodBLOOD SPECIMEN / Psvwrel3710/18/2023 8:25 AM EDT 10/18/2023 8:26 AM EDT Narrative Authorizing ProviderResult TypeResult StatusYnes Mistry LINE WELDER - CNPIMMUNOLOGY ORDERABLESFinal ResultPerforming OrganizationAddressCity/State/ZIP CodePhone Number [facility] [address] [place] [address], [facility] [phone] [facility] [address] [place] [address], [facility] [phone] * C.trachomatis N.gonorrhoeae DNA, Urine (11/19/2020 1:57 PM EDT)ComponentValue Ref RangeTest MethodAnalysis TimePerformed AtPathologist SignatureSpecimen Description.URINE11/19/2020 1:57 PM EDTMERCY LABORATORIESC. trachomatis DNA ,ZkxsvYLESHINWDBGINRSX09/29/2021 1:57 PM EDTMERCY LABORATORIESComment: CHLAMYDIA TRACHOMATIS DNA [...] alternative nucleic acid target. N. gonorrhoeae DNA, IucyiAQDMXLHFJLPSEAAX76/29/2021 1:57 PM EDTMERCY LABORATORIESComment: NEISSERIA GONORRHOEAE DNA [...] / LateralityCollection Method / Volume Collection TimeReceived SxkbHcsww90/29/2021 1:57 PM EDT11/19/2020 1:57 PM EDT Narrative Authorizing ProviderResult TypeResult StatusBethrupinder Ricks APRN - COMPUTER PATTERNMAKER MICROBIOLOGY - GENERAL ORDERABLESFinal ResultPerforming OrganizationAddress City/State/ZIP CodePhone Number [facility] [address] [place] [address], [facility] [phone] [facility] [address] [place], [place] [address] [phone] * HIV Screen (05/04/2020 3:27 PM EDT)ComponentValueRef RangeTest MethodAnalysis TimePerformed AtPathologist SignatureHIV Ag/JvWOCENKTAZXQEFBSTYRMBDE94/12/2020 3:27 PM EDTMERCY LABORATORIESComment: No laboratory evidence of HIV infection. ??If acute HIV infection is suspected, consider testing for HIV-1 RNA. Specimen (Source)Anatomical Location / LateralityCollection Method / Volume Collection TimeReceived TimeBLOOD SPECIMEN / Ylxlabg4105/04/2020 3:27 PM EDT 05/04/2020 3:28 PM EDT Narrative Authorizing ProviderResult TypeResult StatusYnes Mistry APRN - CNPIMMUNOLOGY ORDERABLESFinal ResultPerforming OrganizationAddressCity/State/ZIP CodePhone Number [facility] [address] [place] [address], [facility] [phone] [facility] [address] [place], [place] [address] [phone] from Last 3 Months or Most Recently Relevant to Health Maintenance Insurance Care Teams Team MemberRelationshipSpecialtyStart DateEnd Date Ynes Mistry, JOSE J - COMPUTER PATTERNMAKER [address] [place] [address] [address] [place] [address] PCP - GeneralFamily Nurse Practitioner08/02/22
--- OUTSIDE RECORDS SUMMARY | 2025-06-17 08:27 | XMS_ITS | Encounter Summary ---
Author Organization [facility] Address [address] [place] [address] Care Team Providers Care Supervisor Precision Optical Elements Name Role Phone Unavailable Primary Care Provider Unavailabl e Encounter Details DateTypeDepartmentCare Team (Latest Contact Info)Bfuudsmxzsq43/13/2025linisync Result Encounter NOMS External Department Unsolicited Britt Foy DO [address] [place], [facility]11 Social History Tobacco UseTypesPacks/DayYears UsedDateSmoking Tobacco: NeverSmokeless Tobacco: NeverAlcohol UseStandard Drinks/WeekCommentsNever0 (1 standard drink = 0.6 oz pure alcohol)Estimated Date of ZridmmanAppnwmvlVof75/01/2025Based on last menstrual period of 09/16/2024Sex and Gender InformationValueDate Recorded Sex Assigned at BirthNot on fileLegal YroGfmltv85/15/2023 11:47 PM EDTGender IdentityNot on fileSexual OrientationNot on filedocumented as of this encounter Plan of Treatment DateTypeDepartmentCare Team (Latest Contact Info)Zykrmfmlvnt94/25/2025 11:00 AM ESTOffice Visit NOMRenzo SANTO [address] [place] [phone] Regina Barton PA [address] [place], [place] [id number] 07/28/2025 4:00 PM ESTOffice Visit [facility] [address] [place] [phone] Britt Foy, DO [address] [place] [address] documented as of this encounter Goals GoalPatient Goal TypeAssociated ProblemsRecent ProgressPatient-Stated?Author Reminders Care PlanOB RemindersNoOpen Scheduling, Backgrounddocumented as of this encounter Procedures Procedure NamePriorityDate/TimeAssociated DiagnosisCommentsUS OB BPP W NON-KCQPNA3206/05/2025 8:26 AM EST documented in this encounter Results * US OB BPP W NON-STRESS (06/05/2025 8:26 AM EST)Anatomical Region LateralityModalityOtherSpecimen (Source)Anatomical Location / Laterality Collection Method / VolumeCollection TimeReceived Time06/05/2025 8:26 AM EST Narrative 06/05/2025 8:28 AM EST [facility] ?[address] ? [place] [address] ? Ultrasound Report ? Signed ? Patient: VINNY HERRERA ?MR#: [id number] ?? : 2000 ?Acct:[id number] ?? Age/Sex: 24 / F ?ADM Date: 06/04/25 ?? Loc: US ? Attending Dr: Britt Foy D.O. ? Ordering Physician: Britt Foy D.O. ?? Date of Service: 06/04/25 ?? Procedure(s): US OB BPP w non-stress ?? Accession Number(s): [id number] ? cc: Britt Foy D.O.; Ynes Mistry NP ? [facility] ? [address] ? [place] [address] ? Patient Name: ?? VINNY HERRERA ? MRN: [id number] ? date: 2000 ?Sex: F ?? Assigned Patient Location: [facility]BC ?? Current Patient Location: ? Accession/Order Number: [id number] ?? Exam Date: 06/04/2025 ??16:09 ?Report Date: [...] Dictation Location: RADIO-PC-02 ? Electronically authenticated by: [id number] ??Y ?? Date: 06/05/2025 ??08:26 ? Dictated By: ?Criselda Flores M.D. ? Signed By: ?06/05/25 0828 ? DD/ 0826 ? TD/TT: ? Hosted Services Analyst: Procedure Note Radiology, Radiologist, MD - 06/05/2025 [place] [address] Ultrasound Report Signed Patient: VINNY HERRERA CMR#: [id number] : 2000Acct:[id number] Age/Sex: 24 / FADM Date: 06/04/25 Loc: US Attending Dr: Britt Foy D.O. Ordering Physician: Britt Foy D.O. Date of Service: 06/04/25 Procedure(s): US OB BPP w non-stress Accession Number(s): [id number] cc: Britt Foy D.O.; Ynes Mistry NP The [address] [address] Patient Name: VINNY HERRERA MRN: [id number] date: 2000 Sex: F Assigned Patient Location: [facility] Current Patient Location: Accession/Order Number: [id number] Exam Date: 06/04/2025 16:09 Report Date: 06/05/2025 [...] Flores M.D. 06/05/2025 8:26 AM Dictation Location: [place] [address] Electronically authenticated by: [id number] Y Date: 508:26 Dictated By: Criselda Flores M.D. Signed By:06/05/25827 DD/ 5 TD/TT: Hosted Services Analyst: Authorizing ProviderResult TypeResult StatusCorey Law DOCLINISYNC IMAGINGFinal Result documented in this encounter Visit Diagnoses Not on filedocumented in this encounter Additional Health Concerns Active ProblemsNoted DateDiagnosed DateOB Snhjugndq20/09/2025 documented as of this encounter
--- OUTSIDE RECORDS SUMMARY | 2025-06-17 08:27 | XMS_ITS | Encounter Summary ---
Author Organization [facility] Address [address] [place] [address] Care Team Providers Care Incendiary Powder Mixer Name Role Phone Unavailable Primary Care Provider Unavailabl e Encounter Details DateTypeDepartmentCare Team (Latest Contact Info)Aldudfbdyzh34/16/2025linisync Result Encounter NOMS External Department Unsolicited Britt Foy DO [address] [facility] [place], [facility]11 Social History Tobacco UseTypesPacks/DayYears UsedDateSmoking Tobacco: NeverSmokeless Tobacco: NeverAlcohol UseStandard Drinks/WeekCommentsNever0 (1 standard drink = 0.6 oz pure alcohol)Estimated Date of AzmdndwfGyrfbpazMat19/01/2025Based on last menstrual period of 09/16/2024Sex and Gender InformationValueDate Recorded Sex Assigned at BirthNot on fileLegal UaeFyqpfc49/15/2023 11:47 PM EDTGender IdentityNot on fileSexual OrientationNot on filedocumented as of this encounter Plan of Treatment DateTypeDepartmentCare Team (Latest Contact Info)Xnxnaccqppa62/25/2025 11:00 AM ESTOffice Visit NOMRenzo SANTO [address] [place] [address] Regina Barton PA [address] [place], [place] [phone] 07/28/2025 4:00 PM ESTOffice Visit [facility] [address] [place] [address] Britt Foy, DO [address] [place] [address] documented as of this encounter Goals GoalPatient Goal TypeAssociated ProblemsRecent ProgressPatient-Stated?Author Reminders Care PlanOB RemindersNoOpen Scheduling, Backgrounddocumented as of this encounter Procedures Procedure NamePriorityDate/TimeAssociated DiagnosisCommentsUS OB BPP W NON-RHQKHS6705/08/2025 12:28 AM EDT documented in this encounter Results * US OB BPP W NON-STRESS (05/08/2025 12:28 AM EDT)Anatomical Region LateralityModalityOtherSpecimen (Source)Anatomical Location / Laterality Collection Method / VolumeCollection TimeReceived Time05/08/2025 12:28 AM EDT Narrative 05/08/2025 12:30 AM EDT [facility] ?[address] ? [place] [id number] ? Ultrasound Report ? Signed Patient: VINNY HERRERA ?MR#: [id number] : 2000 ?Acct:[id number] Age/Sex: 24 / F ?ADM Date: 05/07/25 Loc: US Attending Dr: Britt Foy D.O. Ordering Physician: Britt Foy D.O. Date of Service: 05/07/25 Procedure(s): US OB BPP w non-stress Accession Number(s): [id number] cc: Britt Foy D.O.; Ynes Mistry SALES AND SERVICE REPRESENTATIVE ? [facility] ? [address] [place] [address] ? [place] [address] ? Patient Name: VINNY HERRERA MRN: [facility]:[id number] ? date: 2000 ?Sex: F Assigned Patient Location: Current Patient Location: Accession/Order Number: [id number] Exam Date: 05/07/2025 ??16:45 ?Report Date: 05/08/2025 [...] BPP w non-stress IMPRESSION: Biophysical profile score: 02/28 Impression dictated by: Pavel Yepez M.D. ??05/08/2025 12:28 AM Dictation Location: [place] [address] Electronically authenticated by: [id number] ??Y ?? Date: 05/08/2025 ??00:28 Dictated By: ?Pavel Yepez M.D. Signed By: ?05/08/25 0030 DD/ TD/TT: ? Marine Engine Machinist Apprentice: Procedure Note Radiology, Radiologist, MD - 06/03/2025 [place] [address] Ultrasound Report Signed Patient: VINNY HERRERA CMR#: [id number] : 2000Acct:[id number] Age/Sex: 24 / FADM Date: 05/07/25 Loc: US Attending Dr: Britt Foy D.O. Ordering Physician: Britt Foy D.O. Date of Service: 05/07/25 Procedure(s): US OB BPP w non-stress Accession Number(s): [id number] cc: Britt Foy D.O.; Ynes Mistry NP The [address] [address] Patient Name: VINNY HERRERA MRN: [id number] date: 2000 Sex: F Assigned Patient Location: US Current Patient Location: Accession/Order Number: [id number] Exam Date: 05/07/2025 16:45 Report Date: 05/08/2025 [...] Yepez M.D. 05/08/2025 12:28 AM Dictation Location: [place] [address] Electronically authenticated by: [id number] Y Date: 500:28 Dictated By: Pavel Yepez M.D. Signed By:05/08/25 0030 DD/ 0028 TD/TT: Marine Engine Machinist Apprentice: Authorizing ProviderResult TypeResult StatusCorey Law DOCLINISYNC IMAGINGFinal Result documented in this encounter Visit Diagnoses Not on filedocumented in this encounter Additional Health Concerns Active ProblemsNoted DateDiagnosed DateOB Hdyyoeuon21/09/2025 documented as of this encounter
--- OUTSIDE RECORDS SUMMARY | 2025-06-17 08:27 | XMS_ITS | Encounter Summary ---
Author Organization [facility] Address [address] [place] [address] Care Team Providers Care Cement Finishing Supervisor Name Role Phone Unavailable Primary Care Provider Unavailabl e Encounter Details DateTypeDepartmentCare Team (Latest Contact Info)Iawpjonrmew08/10/2025Telephone [facility] [address] [place] [address] [place] [address] Jo Ann Isabel LPN Social History Tobacco UseTypesPacks/DayYears UsedDateSmoking Tobacco: NeverSmokeless Tobacco: NeverAlcohol UseStandard Drinks/WeekCommentsNever0 (1 standard drink = 0.6 oz pure alcohol)Estimated Date of ZgzxbwrkEhyfgpphIdy30/01/2025Based on last menstrual period of 09/16/2024Sex and Gender InformationValueDate Recorded Sex Assigned at BirthNot on fileLegal TiwDkfyeq57/15/2023 11:47 PM EDTGender IdentityNot on fileSexual OrientationNot on filedocumented as of this encounter Miscellaneous Notes * Telephone Encounter - Jo Ann Isabel LPN - 06/02/2025 4:33 PM EST 2:35pm 06/02/25 Nelda from [facility] called an LMOM inquiring about dosage of [...] Plan of Treatment DateTypeDepartmentCare Team (Latest Contact Info)Hrskbsrqaau80/25/2025 11:00 AM ESTOffice Visit DIANE SANTO [address] [place] [phone] Regina Barton PA [address] [place] [address] 07/28/2025 4:00 PM ESTOffice Visit NOMRenzo SANTO [address] [place] [phone] Mukul Foy DO [address] [place] [address] documented as of this encounter Goals GoalPatient Goal TypeAssociated ProblemsRecent ProgressPatient-Stated?Author Reminders Care PlanOB RemindersNoOpen Scheduling, Backgrounddocumented as of this encounter Visit Diagnoses Not on filedocumented in this encounter Additional Health Concerns Active ProblemsNoted DateDiagnosed DateOB Jrxmtfunc25/09/2025 documented as of this encounter
--- OUTSIDE RECORDS SUMMARY | 2025-06-17 08:27 | XMS_ITS | Encounter Summary ---
Author Organization [facility] Address [address], [address] [place] [address] Care Team Providers Care Motors Assembler Name Role Phone Ynes Mistry NETWORK ARCHITECT MANAGER - TECHNICAL OPERATIONS SPECIALIST Primary Care Provide r Encounter Details DateTypeDepartmentCare Team (Latest Contact Info)Hsujhiogntt88/19/2025bstract [facility] [address] [place] [address] [address] [place] [address] Ynes Mistry, NETWORK ARCHITECT MANAGER - TECHNICAL OPERATIONS SPECIALIST [address] [place] [phone] Social History Tobacco UseTypesPacks/DayYears UsedDateSmoking Tobacco: NeverSmokeless Tobacco: NeverAlcohol UseStandard Drinks/WeekCommentsNot Currently0 (1 standard drink = 0.6 oz pure alcohol)socialST. R[facility] UtilitiesAnswerDate RecordedIn the past 12 months has the electric, gas, oil, or water company threatened to shut off services in your home?No10/07/2024Overall Financial Resource Strain (CARDIA)AnswerDate RecordedHow hard is it for you to pay for the very basics like food, housing, medical care, and heating?Not hard at all07/13/2023HQ-2AnswerDate RecordedPHQ-9 Total Rjfcx453Hunger Vital SignAnswerDate RecordedWithin the past 12 months, [...] steady place to sleep or slept in [facility] (including now)?No07/13/2023Housing Stability Vital SignAnswerDate [...] more.CommentsNoSex and Gender InformationValueDate RecordedSex Assigned at IdbddSonhss11/28/2024 8:24 PM EDTLegal IhpGqgtht43/10/2013 3:31 PM ESTGender RqgwdygpWpyogi82/28/2024 8:24 PM EDTSexual OrientationNot on filedocumented as of this encounter Plan of Treatment Not on file documented as of this encounter Visit Diagnoses Not on filedocumented in this encounter Care Teams Team MemberRelationshipSpecialtyStart DateEnd Date Ynes Mistry, NETWORK ARCHITECT MANAGER - TECHNICAL OPERATIONS SPECIALIST [address] [place] [address] [place], [place] [phone] PCP - GeneralFamily Nurse Practitioner08/02/22documented as of this encounter
--- OUTSIDE RECORDS SUMMARY | 2025-06-17 08:27 | XMS_ITS | Clinical Summary ---
Author Organization [facility] Address [address] [place], [place] [id number] Care Team Providers Care Answerer Name Role Phone Unavailable Primary Care Provider Unavailabl e Allergies No known active allergies Medications MedicationSigDispense QuantityRefillsLast FilledStart DateEnd DateStatus benzonatate (TESSALON PERLE) 100 mg capsule Take 1-2 capsules every 8 hours as needed. 60 capsule 4Active Active Problems No known active problems Social History Tobacco UseTypesPacks/DayYears UsedDateSmoking Tobacco: Never Assessed CommentsUnknownSex and Gender InformationValueDate RecordedSex Assigned at Not on fileLegal XwpHwjonp27/14/2024 10:20 AM ESTGender IdentityNot on file Sexual OrientationNot on file Plan of Treatment Health MaintenanceDue DateLast DoneCommentsPeds To Adult Transition Initial Nimagrnhfg19/17/2011Peds To Adult Transition Annual Tcxyiiubsl01/17/2013nxiety Gdysgnpsw42/17/2017Depression Ezmwxxduy02/17/2017HIV Zbeipoxoo50/17/2017 Hepatitis C Dvvbdhqhr66/17/2017Cervical Cancer Uqvtzhjmv60/17/2020DTaP,Tdap,Td Vaccine (7 - Td or Tdap)/, 11/20/2003, 03/13/2000, Additional history existsCovid-19 Vaccine ( season)/02/2021, 12/07/2020Influenza Vaccine (#1)2025Hepatitis B VaccineCompleted 06/09/1999, 1998, 1998HPV NzgcircBvtvvvliz16/28/2018, 05/01/2017, 02/24/2017 Insurance [facility] Address: [address] [place] [phone]
--- OUTSIDE RECORDS SUMMARY | 2025-06-17 08:28 | XMS_ITS | CCD ---
Author Organization [facility]ini[facility] Care Team Providers Care [employer] Operator Name Role Phone Jannette Peña I Primary Care Provider Ynes Rodriguez Primary Care Provider [phone] Fed[facility] Primary Care Provide r LAW, MUKUL R Admitting Unavailable LAW, MUKUL R Primary Care Unavailable LAW, MUKUL R Admitting Unavailable LAW, MUKUL R Primary Care Unavailable LAW, MUKUL R Admitting Unavailable LAW, MUKUL R Primary Care Unavailable BERTO LIVE Admitting Unavailabl e LAW, MUKUL R Primary Care Unavailable Fede FURNACE COOLER - REFINISH TECHNICIAN, Ynes Conner Primary Care Provide r Unavailable Primary Care Provider Unavailabl e LAW ., DR DE LA TORRE Attending Unavailable MISC, DR YAÑEZ Primary Care Unavailable WESTWEGO, DR YELENA eHnao Consulting Unavailable LAW ., DR DE LA [...] Unavailable MISC, DR YAÑEZ Primary Care Unavailable WESTWEGO, DR YELENA Henao Consulting Unavailable ALW ., [...] mg oral tablet (1 source)HMG-CoA Reductase InhibitorStart: 40-20-5250undu 1 tablet by mouth once dailyatorvastatin (LIPITOR) 10 MG tablet Take 1 tablet by mouth daily 30 tablet 5 02/20/2024 Activecephalexin 500 mg oral capsule (4 sources)Cephalosporin AntibacterialStart: 04-03-2025 End: 08-84-5584oech 1 capsule by mouth in the morning, [...] mg oral tablet (8 sources)Histamine-1 Receptor AntagonistStart: 18-94-9735jbps 1 tablet by mouth once dailycetirizine (ZYRTEC) 10 MG tablet Take 1 tablet by mouth daily 90 tablet 3 03/12/2021 ActiveStart: 78-07-9860loyu 1 tablet by mouth once daily cetirizine (ZYRTEC) 10 MG tablet Take 1 tablet by mouth daily 90 tablet 3 06/29/2020 Activedrospirenone 4 mg oral tablet (1 source)ProgestinStart: 54-63-1545grbq 1 tablet by mouth once daily Drospirenone (SLYND) 4 MG TABS Indications: Irregular menses Take 1 tablet by mouth daily 84 tablet4 05/12/2021 Activedrospirenone 3 mg / ethinyl estradiol 0.03 mg oral tablet (9 sources)Progestin, EstrogenStart: 42-20-5903CRHDD 3-0.03 MG TABS Indications: Irregular menses TAKE 1 TABLET DAILY 84 tablet 0 05/03/2021 ActiveStart: 81-74-3142colw 1 tablet by mouth once dailydrospirenone-ethinyl estradiol (CHANDANA 28) 3-0.03 MG TABS Indications: Irregular menses Take 1 tablet by mouth daily 3 packet 4 03/03/2020 ActiveEthinyl Estradiol / Ferrous fumarate / Norethindrone (6 sources)EstrogenStart: 88-30-4489RMIXY FE 24 1-20 MG-MCG(24) TABS Indications: DUB (dysfunctional uterine bleeding) TAKE 1 TABLET DAILY 84 tablet 1 08/27/2018 ActiveStart: 81-76-0464muao 1 tablet by mouth once dailyNorethin David-Eth Estrad-FE 1-20 MG-MCG(24) TABS Indications: Irregular menses Take 1 tablet by mouth daily 28 tablet 12 05/04/2018 ActiveStart: 23-26-4757kdri 1 tablet by mouth once dailyNorethin David-Eth Estrad-FE ( 24) 1-20 MG- MCG(24) TABS Indications: Irregular menses Take 1 tablet by mouth daily 84 tablet 3 07/21/2017 Activefexofenadine / Pseudoephedrine (2 sources)alpha-Adrenergic Agonist, Histamine-1 Receptor Antagonist Fexofenadine-Pseudoephedrine (JOSÉ MIGUEL-D PO) Take by mouth 0 Activefluconazole 150 mg oral tablet (1 source)Azole AntifungalStart: 62-22-1861ythb 1 tablet by mouth once daily as [...] pen injector (20 sources)Insulin AnalogStart: 06-02-2025 End: 64-23-1720ztgxqdv glargine (Lantus SoloStar) 100 UNIT/ML pen Indications: Hyperglycemia Inject 17 Units underthe skin at bedtime FILL ACCORDING TO INSURANCE COVERAGE 3 mL 06/02/2025 07/02/2025 ActiveStart: 05-14-2025 End: 88-29-8230jzyeoob glargine (Lantus SoloStar) 100 UNIT/ML pen Indications: Hyperglycemia Inject 15 Units underthe skin at bedtime FILL ACCORDING TO INSURANCE COVERAGE 3 mL 05/14/2025 06/02/2025 Discontinued (Dose adjustment) Start: 04-07-2025 End: 22-40-1290gamawl 10 [IU] by subcutaneous injection at bedtimeinsulin glargine (Lantus SoloStar) 100 UNIT/ML pen Indications: Hyperglycemia Inject 10 Units underthe skin at bedtime FILL ACCORDING TO INSURANCE COVERAGE 3 mL 04/07/2025 05/14/2025 Discontinued (Reorder)loratadine 10 mg oral capsule (2 sources)take 1 capsule by mouth once dailyloratadine (CLARITIN) 10 MG capsule Take 10 mg by mouth daily 0 Bnczne25 hr metFORMIN hydrochloride 500 mg extended release oral tablet (20 sources)BiguanideStart: 02-11-2025 End: 96-99-0257wzxn 2 tablets by mouth every twenty-four hours at mealtime metFORMIN XR (Glucophage-XR) 500 MG 24 hr tablet Indications: Second trimester ([facility]) , 20 weeks gestation of ([facility]) Take 2 tablets (1,000 mg) by mouth in the evening. Take with meals 60 tablet 5 02/11/2025 08/10/2025 ActiveStart: 11-05-2024 End: 13-86-3526gmhl 1 tablet by mouth every twenty-four hours in the morning metFORMIN XR (Glucophage-XR) 500 MG 24 hr tablet Take 1,000 mg by mouth in the morning and 1,000 mgin the evening. 11/05/2024 02/11/2025 Discontinued (Reorder) Start: 11-05-2024 End: 05-54-3924ozaZWRZPF (GLUCOPHAGE-XR) 500 MG extended release tablet Indications: BMI 37.0-37.9, adult , Class 2 obesity with body mass index (BMI) of 37.0 to 37.9 in adult, unspecified obesity type, unspecifiedwhether serious comorbidity present TAKE 2 TABLETS BY MOUTH IN THE MORNING AND AT BEDTIME 120 tablet 5 11/05/2024 05/04/2025 ActiveStart: 04-26-2024 End: 53-82-4639fucKOGJLM (GLUCOPHAGE-XR) 500 MG extended release tablet Indications: BMI 37.0-37.9, adult , Class 2 obesity with body mass index (BMI) of 37.0 to 37.9 in adult, unspecified obesity type, unspecifiedwhether serious comorbidity present Take 2 tablets by mouth in the morning and at bedtime 360 tablet 1 04/26/2024 10/23/2024 Activemetoclopramide 10 mg oral tablet (20 sources)Dopamine-2 Receptor AntagonistStart: 03-12-2025 End: 56-96-1418gdfoeempcihdmh (Reglan) 10 MG tablet Indications: Gastroesophageal reflux [...] 50 mg oral capsule (4 sources)Nitrofuran AntibacterialStart: 20-72-5420sgkv 1 capsule by mouth once dailynitrofurantoin (MACRODANTIN) 50 MG capsule Indications: Recurrent UTI Take 1 capsule by mouth nightly 30 capsule 0 03/03/2020 Activepantoprazole 40 mg delayed release oral tablet (20 sources)Proton Pump InhibitorStart: 02-26-2025 End: 12-56-3882xojf 1 tablet by mouth before mealtimepantoprazole (Protonix) 40 MG EC tablet Indications: 23 weeks gestation of ([facility]) , Elevated blood sugar level , Gastroesophageal reflux disease without esophagitis Take 1 tablet (40 mg)by mouth in the morning. Take before meals. Do not crush, chew, or split. 30 tablet 11 02/26/2025 02/26/2026 Activephentermine hydrochloride 37.5 mg oral tablet (1 source)Sympathomimetic Amine AnorecticStart: 05-01-2024 End: 22-73-0788ojls 37-37.9 tablets by mouth once dailyphentermine (ADIPEX-P) [...] mg oral capsule (12 sources)Start: 04-02-2025 End: 95-06-4772xtst 1 capsule by mouth once dailyiron polysaccharides (ProFe) 391.3 (180 Fe) MG capsule Indications: Dizziness Take 1 capsule (391.3mg) by mouth Daily 30 capsule 6 04/02/2025 05/02/2025 ActiveProbiotic Product (PROBIOTIC ADVANCED PO) (6 sources)Probiotic Product (PROBIOTIC ADVANCED PO) Take by mouth Active Probiotic Product (PROBIOTIC ADVANCED PO) Take by mouth 0 ActiveProgesterone (1 source)ProgesteroneStart: 35-51-0680Vrrwedzstqep [address] 200 mg vaginally nightly 10/16/2024 ActiveProgesterone 200 MG suppository (2 sources)Start: 11-14-2024 End: 78-98-8794Wkwsfstayujw 200 MG suppository Indications: History of miscarriage Insert 200 mg into the vagina at bedtime Insert suppository vaginally every night at bedtime until 12 weeks gestation 30 suppository 2 11/14/2024 12/14/2024 ActiveStart: 10-16-2024 End: 91-45-0680Xdvwqpcvfncp 200 MG suppository Indications: History of miscarriage Insert 200 mg into the vagina at bedtime Insert suppository vaginally every night at bedtime until 12 weeks gestation 30 suppository 3 10/16/2024 11/14/2024 Discontinued (Reorder)sertraline 25 mg oral tablet (20 sources)Serotonin Reuptake InhibitorStart: 49-99-5596foju 1 tablet by mouth once dailysertraline (ZOLOFT) 25 MG tablet Take 1 tablet by mouth daily 30 tablet 5 11/12/2024 ActiveStart: 52-09-7090frun 1 tablet by mouth once daily in the morningsertraline (Zoloft) 50 MG tablet Indications: Anxiety, generalized TAKE 1 TABLET BY MOUTH EVERY DAYIN THE MORNING 30 tablet 3 10/25/2024 Active Start: 27-47-4306kftu 1 tablet by mouth once daily in the morningsertraline (Zoloft) 50 MG tablet Indications: Anxiety, generalized (CMS/HCC) TAKE 1 TABLET BY MOUTHEVERY DAY IN THE MORNING 30 tablet 3 06/27/2024 ActiveStart: 10-17-2023 take 1 tablet by mouth once dailysertraline (ZOLOFT) 50 MG tablet Indications: Anxiety Take 1 tablet by mouth daily 30 tablet 10/17/2023 ActiveStart: 73-61-2408xfkd 1 tablet by mouth once dailysertraline (ZOLOFT) 25 MG tablet Indications: Anxiety Take 1 tablet by mouth daily 90 tablet 3 03/29/2022 Active Start: 78-67-0319lbgz 1 tablet by mouth once dailysertraline (ZOLOFT) 25 MG tablet Take 1 tablet by mouth daily 90 tablet 3 03/12/2021 ActiveStart: 09-12-3255xrnl 1 tablet by mouth once dailysertraline (ZOLOFT) 50 MG tablet Take 1 tablet by mouth daily 30 tablet 2 08/17/2020 Activesulfamethoxazole 800 mg / trimethoprim 160 mg oral tablet (2 sources)Dihydrofolate Reductase Inhibitor Antibacterial, Sulfonamide AntimicrobialStart: 99-77-9758sggq 1 tablet by mouth every twelve hours sulfamethoxazole-trimethoprim (BACTRIM DS;SEPTRA DS) 800-160 MG per tablet TAKE 1 TABLET BY MOUTH EVERY 12 HOURS FOR 7 DAYS 0 02/24/2020 ActiveTirzepatide (MOUNJARO) 2.5 MG/0.5ML SOPN SC injection (1 source)Start: 20-53-9899Qxaghbshsvn (MOUNJARO) 2.5 MG/0.5ML SOPN SC injection Indications: Mixed hyperlipidemia , BMI 37.0-37.9, adult , Class 2 obesity with body mass index (BMI) of 37.0 to 37.9 in adult, unspecified obesity type, unspecified whether serious comorbidity present Inject 0.5 mLs into the skin once a week 4 mL 1 05/01/2024 ActivetraZODone hydrochloride 50 mg oral tablet (1 source)Serotonin Reuptake InhibitorStart: 95-50-8396rmpb 0.5 tablet by mouth once dailytraZODone (DESYREL) 50 MG tablet Take 0.5 tablets by mouth nightly 30 tablet 2 05/01/2020 Active Completed/Discontinued Medications MedicationDrug Class(es)DatesSig (Normalized)Sig (Original)norethindrone 0.35 mg oral tablet (2 sources)Start: 03-10-2023 End: 03-34-2817opll 1 tablet by mouth in the morningnorethindrone (Micronor) 0.35 MG tablet Indications: General counseling and advice on contraceptive management Take 1 tablet (0.35 mg) by mouth in the morning. 28 tablet 11 03/10/2023 07/15/2024 Discontinued (Therapy completed)omeprazole 20 mg delayed release oral capsule (8 sources)Proton Pump InhibitorStart: 01-15-2025 End: 88-12-1470tikq 1 capsule by mouth before mealtimeomeprazole (PriLOSEC) [address] capsule Indications: Gastroesophageal Reflux Disease , Heartburn Take 1 capsule (20 mg) by mouth in the morning. Take before meals. Do not crush or chew. 30 capsule 3 01/15/2025 02/26/2025 Discontinued (Formulary change) Problems Active Problems Problem ClassificationProblemDateDocumented DateEpisodic/Chronic Administrative/social admission (4 sources)Dietary counseling and surveillance; Translations: [DIETARY COUNSELING AND SURVEILLANCE]Onset: 17-36-8793GhxahlovQsdltij disorders (20 sources)Anxiety; Translations: [Anxiety disorder, unspecified]Onset: 180030-30-7886WlsmlbwBwarfqftxx associated with dizziness or vertigo (2 sources)Dizziness; Translations: [Dizziness and giddiness]46-71-1496Vqnxfnhu Deficiency and other anemia (2 sources)Anemia; Translations: [Anemia, unspecified]90-30-3030YhyopefgTnlxqnin or abnormal glucose tolerance complicating ; childbirth; or the puerperium (16 sources)Gestational diabetes mellitus in , unspecified control; Translations: [Gestational diabetes mellitus complicating ]Onset: 054816-89-3926XifbwshfHxzzydvnk of lipid metabolism (7 sources)Mixed hyperlipidemia; Translations: [Mixed hyperlipidemia]Onset: 878954-32-8387PjmjuzoLfcalkotyd disorders (6 sources)Gastroesophageal reflux disease; Translations: [Gastro-esophageal reflux disease without esophagitis]Onset: hronic Genitourinary symptoms and ill-defined conditions (2 sources)Urinary symptoms ; Translations: [Unspecified symptoms and signs involving the genitourinary system]98-94-7916HwlbsemxPkocgkalvd during ; abruptio placenta; placenta previa (1 source)Other antepartum hemorrhage, first trimester; Translations: [Other antepartum hemorrhage, first trimester]Onset: 75-09-7871IdoizgiuIqczcgmrbjbav and screening for infectious disease (4 sources)Encounter for screening for infections with a predominantly sexual mode of transmission; Translations: [Encounter for screening for human papillomavirus (HPV)]Onset: 070625-29-0027LjdarrjfNijbjprhrdssh mental health disorders (20 sources)Insomnia disorder related to another mental disorder; Translations: [Insomnia due to other mental disorder]Onset: 05-02-2020 Resolved: 413356-72-7118DllgfygEhoyn complications of (4 sources)Maternal care for excessive growth, third trimester, not applicable or unspecified; Translations: [MAT CARE EXCSS FTL GRTH 3RD TRI UNS] Onset: 35-12-1370FmhusewyFagbq complications of (3 sources)Maternal care for excessive growth, unspecified trimester, not applicable or unspecified; Translations: [MAT CARE EXCSS FTL GRTH UNS TRI UNS] Onset: 91-99-4257MgnmcejeTyokq complications of (2 sources)Gastroesophageal reflux disease in ; Translations: [Diseases of the digestive system complicating , unspecified trimester] 61-06-3809ClnxbwhgUpcau female genital disorders (20 sources)Pain in female genitalia on intercourse; Translations: [Unspecified dyspareunia]Onset: 11-30-2020 Resolved: 813693-72-1699WizdoryIoxbk female genital disorders (2 sources)Vaginal discharge; Translations: [Other specified noninflammatory disorders of vagina]39-17-3438HziokwarRoikg injuries and conditions due to external causes (4 sources)Encounter for examination and observation following other accident; Translations: [ENC EXAM AND OBSERVATION FOLLOW OTH ACC]Onset: 11-79-8990Ojzsknhv Other liver diseases (3 sources)Steatosis of liver; Translations: [Fatty (change of) liver, not elsewhere classified]Onset: 359152-02-7250EzojnhfHmszv nutritional; endocrine; and metabolic disorders (1 source)Body mass index 30+ - obesity; Translations: [Body mass index (BMI) 37.0-37.9, adult]Onset: 203786-14-4701CqyxcbpWqqov nutritional; endocrine; and metabolic disorders (3 sources)Obesity; Translations: [Class 2 obesity with body mass index (BMI) of 37.0 to 37.9 in adult]Onset: 291607-25-1550BlhxfhmSkkts and delivery including normal (20 sources)Encounter for supervision of normal , unspecified, unspecified trimester; Translations: [ state, incidental]Onset: 88-76-0922CndhaxsuRxjgr screening for suspected conditions (not mental disorders or infectious disease) (20 sources)Encounter for other screening follow-up; Translations: [Encounter for screening, unspecified]Onset: 07-83-5368NxnquxzuEeogj upper respiratory disease (8 sources)Seasonal allergic rhinitis; Translations: [Other seasonal allergic rhinitis]Onset: 117148-17-6264WpestlsJwuqlxqrfjfstf and other problems of amniotic cavity (4 sources)Subchorionic hematoma; Translations: [Other specified disorders of amniotic fluid and membranes, first trimester, not applicable or unspecified] Onset: 785258-39-6209MxesbcltTkskyhat codes; unclassified (1 source)34 weeks gestation of ; Translations: [34 WEEKS GESTATION OF ]Onset: 03-74-8968RjkluydzRghmfcph codes; unclassified (1 source)33 weeks gestation of ; Translations: [33 WEEKS GESTATION OF ]Onset: 45-11-2835HhytczjoYfipzqya codes; unclassified (1 source)Gestation period, 8 weeks; Translations: [8 weeks gestation of ]82-30-3499KlulwazrFsspifts codes; unclassified (3 sources)H/O: miscarriage; Translations: [Personal history of other complications of , childbirth and the puerperium]32-73-5792Nyxvpwcp Residual codes; unclassified (2 sources)Gestation period, 12 weeks; Translations: [12 weeks gestation of ]43-88-0156PelsjkymQhfolkhc codes; unclassified (2 sources)Gestation period, 17 weeks; Translations: [17 weeks gestation of ]02-74-6311NgboezusKdsuokmj codes; unclassified (2 sources)Gestation period, 20 weeks; Translations: [20 weeks gestation of ]28-03-2071GorklscyHnuahmwy codes; unclassified (2 sources)Gestation period, 25 weeks; Translations: [25 weeks gestation of ]72-92-2041DfvemdqtNjifgdqa codes; unclassified (2 sources)Gestation period, 28 weeks; Translations: [28 weeks gestation of ]79-03-5660BocloatgGcqkaivu codes; unclassified (2 sources)Gestation period, 30 weeks; Translations: [30 weeks gestation of ]41-09-2008HiulllsnAqivgdjy codes; unclassified (2 sources)Gestation period, 32 weeks; Translations: [32 weeks gestation of ]53-03-5998InbrhjplNjyhcfnl codes; unclassified (2 sources)Gestation period, 34 weeks; Translations: [34 weeks gestation of ]60-09-9412IemqxrtxRmjrsizx codes; unclassified (2 sources)Gestation period, 36 weeks; Translations: [36 weeks gestation of ]48-19-3401LkwslwjaTijnqwir codes; unclassified (2 sources)Gestation period, 37 weeks; Translations: [37 weeks gestation of ]71-70-0976AvadqwrhEksplzenigxj (1 source)Cancer cervix screening status; Translations: [Screening for cervical cancer]Unclassified (3 sources)Patient encounter status; Translations: [Encounter for annual routine gynecological examination]Unclassified (20 sources)OB RemindersOnset: 014027-15-5053 Past or Other Problems Problem ClassificationProblemDateDocumented DateEpisodic/ChronicCardiac dysrhythmias (2 sources)Palpitations; Translations: [Palpitations]Onset: 73-12-2873Ioljwmlp Deficiency and other anemia (3 sources)Iron deficiency anemia; Translations: [Iron deficiency anemia, unspecified]Onset: 612691-08-7961GufthjbgQogckptzuo and other anemia (1 source)Iron deficiency anemia, unspecified; Translations: [Iron deficiency anemia, unspecified]Onset: 41-66-9811IxvjgwywGuxquyxc mellitus without complication (20 sources)Other abnormal glucose; Translations: [Abnormal glucose level]Onset: 16-72-5246VloerujfRkmylhh and fatigue (20 sources)Fatigue; Translations: [Other fatigue]Onset: EpisodicMenstrual disorders (20 sources)Amenorrhea; Translations: [Amenorrhea, unspecified]Onset: 06-23-2022 Resolved: 54-39-3353OwiroiwEkqvk disorders of stomach and duodenum (20 sources)Indigestion; Translations: [Functional dyspepsia]Onset: 01-13-2023 28-16-7121WdqtfzonXyooa female genital disorders (4 sources)Other specified noninflammatory disorders of vagina; Translations: [OTH SPEC NONINFLAMMATORY D/O VAGINA]Onset: 31-62-2653FefcxshhClcxh gastrointestinal disorders (20 sources)Heartburn; Translations: [Heartburn]Onset: EpisodicOther liver diseases (4 sources)Elevated liver enzymes level; Translations: [Abnormal levels of other serum enzymes]Onset: 442449-00-5725LpqdgbjtEzxxe liver diseases (1 source)Abnormal levels of other serum enzymes; Translations: [Abnormal levels of other serum enzymes]Onset: 75-97-9933NzzbfnbjAdqor skin disorders (3 sources)Acne; Translations: [Acne, unspecified]Onset: 10-17-2023 Resolved: 428556-22-6926MjmnbcxnWbkfv upper respiratory infections (2 sources)Sore throat symptom; Translations: [Acute pharyngitis, unspecified] Onset: 09-10-2024 Resolved: 495239-15-2182GsmirsgbQgfoapqr codes; unclassified (1 source)Family history of other diseases of the digestive system; Translations: [Family history of other diseases of the digestive system]Onset: 23-83-7486ViexfgbtWjfcdvar codes; unclassified (20 sources)Gestation period, 23 weeks; Translations: [23 weeks gestation of ]Onset: 750092-75-8785HxjzorwuUzkhmoi tract infections (20 sources)Recurrent urinary tract infection; Translations: [Urinary tract infection, site not specified]Onset: 11-30-2020 Resolved: 22-24-1138Bwoostgr Results Test NameValueInterpretationReference RangeFacilitySTREP GP B CULTURE+RFLXon 05-01-1515GWGNO GP B CULTURE+RFLX Strep Gp B Culture+Rflx [facility] HealthcareSTREP GP B CULTURE+RFLXNegativeNOMS HealthcareSTREP GP B CULTURE+RFLXCenters for Disease Control and Prevention (CDC) andNODC Healthcare STREP GP B CULTURE+RFLXAmerican Congress of [...] GP B CULTURE+RFLXPerformed at: CB - [facility] HealthcareSTREP GP B CULTURE+NQHU0394 [place], [place] [id number] HealthcareSTREP GP B CULTURE+RFLXLab Director: Elian Mccray PhD, Phone: [phone] HealthcareCLINISYNCNOMS HealthcareUrinalysis macro (dipstick) panel (U)on 09-63-9904Lktumrrly, UANegativeNegative - 4(70) +++ mg/dLNOMS HealthcareBlood, UANegativeNegative [...] mg/dLNOMS HealthcareNOMS HealthcareUS OB BPP W NON-STRESSon 21-36-[address] [address] Ultrasound Report Signed Patient: VINNY DOWNEY MR#: [id number] : 2000 Acct:[id number] Age/Sex: 24 / F ADM Date: 05/28/25 Loc: US Attending Dr: Mukul Foy D.O. Ordering Physician: Mukul Foy D.O. Date of Service: 05/28/25 Procedure(s): US OB BPP w non-stress Accession Number(s): [id number] cc: Mukul Foy D.O.; Ynes Rodriguez NP [facility] [place] [id number] Patient Name: VINNY DOWNEY MRN: [id number] date: 2000 Sex: F Assigned Patient Location: US Current Patient Location: Accession/Order Number: [id number] Exam Date: 05/28/2025 16:05 Report Date: 05/29/2025 [...] Flores M.D. 05/29/2025 10:10 AM Dictation Location: [place] [address] Electronically authenticated by: [id number] Y Date: 05/29/2025 10:10 Dictated By: Criselda Flores M.D. Signed By: 05/29/25 1013 DD/ 1010 TD/TT: Resistor Testing Machine Operator:MILYHRadiology, Radiologist, - 05/29/2025 [place] [address] Ultrasound Report Signed Patient: VINNY DOWNEY MR#: [id number] : 2000 Acct:[id number] Age/Sex: 24 / F ADM Date: 05/28/25 Loc: US Attending Dr: Mukul Foy D.O. Ordering Physician: Mukul Foy D.O. Date of Service: 05/28/25 Procedure(s): US OB BPP w non-stress Accession Number(s): [id number] cc: Mukul Foy D.O.; Ynes Rodriguez NP [place] [address] Patient Name: VINNY DOWNEY MRN: [id number] date: 2000 Sex: F Assigned Patient Location: US Current Patient Location: US Accession/Order Number: [id number] Exam Date: 05/28/2025 16:05 Report Date: 05/29/2025 [...] Flores M.D. 05/29/2025 10:10 AM Dictation Location: [place] [address] Electronically authenticated by: [id number] Y Date: 05/29/2025 10:10 Dictated By: Criselda Flores M.D. Signed By: 05/29/25 1013 DD/ 1010 TD/TT: Resistor Testing Machine Operator: DIANE HealthcareRadiology Study observation (narrative)NOMS HealthcareUS OB BPP W NON-STRESSOrdered By: Radiologist Radiology on 12-97-4523YWKV Healthcare Work Phone: US OB FOLLOW UP TRANSABDOMINAL APPROACHon 40-89-8596EO OB FOLLOW UP TRANSABDOMINAL APPROACHFINDINGS: Comparison February [...] Delivery: 06/23/25 Gestational Age as of 05/14/2025: 56u5cWxqqequtbq macro (dipstick) panel (U)on 08-16-6439Bxvucthpf, UANegativeNegative - 4(70) +++ mg/dLNOMS HealthcareBlood, UANegativeNegative [...] mg/dLNOMS HealthcareNOMS HealthcareUS OB BPP W NON-STRESSon 20-21-9[place] [address] Ultrasound Report Signed Patient: VINNY DOWNEY MR#: [id number] : 2000 Acct:[id number] Age/Sex: 24 / F ADM Date: 05/21/25 Loc: US Attending Dr: Mukul Foy D.O. Ordering Physician: Mukul Foy D.O. Date of Service: 05/21/25 Procedure(s): US OB BPP w non-stress Accession Number(s): [id number] cc: Mukul Foy D.O.; Ynes Rodriguez [place] [address] Patient Name: VINNY DOWNEY MRN: [facility]:[id number] date: 2000 Sex: F Assigned Patient Location: [facility] Current Patient Location: Accession/Order Number: [id number] Exam Date: 05/21/2025 16:12 Report Date: 05/21/2025 19:56 At the request of: MUKUL FOY DO Procedure: US OB BPP w non-stress Ultrasound biophysical profile INDICATION: Gestational diabetes COMPARISON: 05/07/2025 FINDINGS/IMPRESSION:: Fetus cephalic position. 8/8 score biophysical profile. heart rate 139 beats per minutes. JAMAL 19.1 cm . Impression dictated by: Chevy Moreland M.D. 05/21/2025 7:56 PM Dictation Location: [place] [address] Electronically authenticated by: [id number] Y Date: 05/21/2025 19:56 Dictated By: Chevy Moreland M.D. Signed By: 05/21/251958 DD/ 55 TD/TT: Resistor Testing Machine Operator:JAMILAHadiolSkip chaves, - 05/21/2025 [place] [address] Ultrasound Report Signed Patient: VINNY DOWNEY MR#: [id number] : 2000 Acct:[id number] Age/Sex: 24 / F ADM Date: 05/21/25 Loc: US Attending Dr: Mukul Foy D.O. Ordering Physician: Mukul Foy D.O. Date of Service: 05/21/25 Procedure(s): US OB BPP w non-stress Accession Number(s): [id number] cc: Mukul Foy D.O.; Ynes Rodriguez NP The [place] [address] Patient Name: VINNY DOWNEY MRN: [facility]:[id number] date: 2000 Sex: F Assigned Patient Location: [facility] Current Patient Location: Accession/Order Number: [id number] Exam Date: 05/21/2025 16:12 Report Date: 05/21/2025 19:56 At the request of: MUKUL FOY DO Procedure: US OB BPP w non-stress Ultrasound biophysical profile INDICATION: Gestational diabetes COMPARISON: 05/07/2025 FINDINGS/IMPRESSION:: Fetus cephalic position. 8/8 score biophysical profile. heart rate 139 beats per minutes. JAMAL 19.1 cm . Impression dictated by: Chevy Moreland M.D. 05/21/2025 7:56 PM Dictation Location: [place] [address] Electronically authenticated by: [id number] Y Date: 05/21/2025 19:56 Dictated By: Cehvy Moreland M.D. Signed By: 05/21/251958 DD/ 55 TD/TT: Resistor Testing Machine Operator: DIANE HealthcareRadiology Study observation (narrative)NOMS HealthcareUS OB BPP W NON-STRESSOrdered By: Radiologist Radiology on 77-07-7658NAPM Healthcare Work Phone: US OB BPP W NON-STRESSon 14-39-0369Jjc [place] [address] Ultrasound Report Signed Patient: VINNY DOWNEY MR#: [id number] : 2000 Acct:[id number] Age/Sex: 24 / F ADM Date: 05/14/25 Loc: US Attending Dr: Mukul Foy D.O. Ordering Physician: Mukul Foy D.O. Date of Service: 05/14/25 Procedure(s): US OB BPP w non-stress Accession Number(s): [id number] cc: Mukul Foy D.O.; Ynes Rodriguez The [place] [id number] Patient Name: VINNY DOWNEY MRN: [facility]:[id number] date: 2000 Sex: F Assigned Patient Location: Current Patient Location: [facility] Accession/Order Number: [id number] Exam Date: 05/14/2025 16:00 Report Date: 05/14/2025 22:20 At the request of: MUKUL FOY DO Procedure: US OB BPP w non-stress Ultrasound biophysical profile INDICATION: Gestational diabetes COMPARISON: 05/07/2025 FINDINGS/IMPRESSION:: Fetus cephalic position. 8/8 score biophysical profile. heart rate 1:30 beats per minutes. JAMAL 17.4 cm . Impression dictated by: Chevy Moreland M.D. 05/14/2025 10:20 PM Dictation Location: [place] [address] Electronically authenticated by: [id number] Y Date: 05/14/2025 22:20 Dictated By: Chevy Moreland M.D. Signed By: 05/14/252222 DD/ 19 TD/TT: Resistor Testing Machine Operator:JAMILAHadiologvicki, Radiologist, - 06/03/2025 The [place] [id number] Ultrasound Report Signed Patient: VINNY DOWNEY MR#: [id number] : 2000 Acct:[id number] Age/Sex: 24 / F ADM Date: 05/14/25 Loc: US Attending Dr: Mukul Foy D.O. Ordering Physician: Mukul Foy D.O. Date of Service: 05/14/25 Procedure(s): US OB BPP w non-stress Accession Number(s): [id number] cc: Mukul Foy D.O.; Ynes Rodriguez DIRECTOR AMBULATORY [place] [address] Patient Name: VINNY DOWNEY MRN: [id number] date: 2000 Sex: F Assigned Patient Location: Current Patient Location: [facility] Accession/Order Number: [id number] Exam Date: 05/14/2025 16:00 Report Date: 05/14/2025 22:20 At the request of: MUKUL FOY DO Procedure: US OB BPP w non-stress Ultrasound biophysical profile INDICATION: Gestational diabetes COMPARISON: 05/07/2025 FINDINGS/IMPRESSION:: Fetus cephalic position. 8/8 score biophysical profile. heart rate 1:30 beats per minutes. JAMAL 17.4 cm . Impression dictated by: Chevy Moreland M.D. 05/14/2025 10:20 PM Dictation Location: [place] [address] Electronically authenticated by: [id number] Y Date: 05/14/2025 22:20 Dictated By: Chevy Moreland M.D. Signed By: 05/14/252222 DD/ 19 TD/TT: Resistor Testing Machine Operator: NOMS HealthcareRadiology Study observation (narrative)NOMS HealthcareUS OB BPP W NON-STRESSOrdered By: Radiologist Radiology on 15-97-9471JVPU Healthcare Work Phone: Urinalysis macro (dipstick) panel (U)on 05-14-2025 Bilirubin, UANegativeNegative - 4(70) +++ mg/dLNOMS HealthcareBlood, UANegative Negative - 50 Yunior/mcLNOMS HealthcareClarity, UAClearNOMS HealthcareColor, UA YellowNOMS HealthcareGlucose, UANegativeNegative - 2000(110) ++++ mg/dLNODC HealthcareInterpretation and review of laboratory resultsNormalNOMS Healthcare Ketones, UANegativeNegative - 160(16) ++++ mg/dLNODC HealthcareLeukocytes, UA NegativeNegative - 500+++ Trip/mcLNOMS HealthcareNitrite, UANegativeNegative - PositiveNOMS HealthcarepH, UA6.55 - 9NOMS HealthcareProtein, UANegativeNegative - 2000(20) ++++ mg/dLNODC HealthcareSpec Grav, UA1.0101 - 1.03NODC Healthcare Urobilinogen, UA2.00.2 - 12 mg/dLNODC HealthcareNODC HealthcareTBH UA (CLEAN/CATCH) SINGLE WIRE SAW OPERATOR/MICRO IF IND.on 98-89-9704FHSBKJSJB URINENegativeNEGATIVENOMS HealthcareBLOOD URINENegativeNEGATIVENOMS HealthcareClarity (U)CLEARCLEARNOMS HealthcareColor (U)LT. YELLOWYELLOWNOMS HealthcareGLUCOSE URINE UANegative NEGATIVE mg/dLNODC HealthcareInterpretation and review of laboratory results AbnormalNOMS HealthcareKetones Ql (U)NegativeNEGATIVE mg/dLNODC Healthcare Leukocyte esterase Test strip Ql (U)SMALLAbnormalNEGATIVENOMS HealthcareNITRITE URINENegativeNEGATIVENOMS HealthcarepH (U)7.0 [pH]5.0 - 9.0NODC Healthcare PROTEIN URINENegativeNEG/TRACE mg/dLNODC HealthcareSPECIFIC GRAVITY URINE<=1.005 Abnormal1.005 - 1.025NODC HealthcareURINE MICROSCOPIC INDICATEDYESNODC HealthcareUROBILINOGEN URINE0.2 EU/dL0.2 - 1.0 EU/dLNODC HealthcareCLINISYNCNOMS HealthcareUS OB BPP W NON-STRESSon [id number] [address] Ultrasound Report Signed Patient: VINNY DOWNEY MR#: [id number] : 2000 Acct:[id number] Age/Sex: 24 / F ADM Date: 05/07/25 Loc: US Attending Dr: uMkul Foy D.O. Ordering Physician: Mukul Foy D.O. Date of Service: 05/07/25 Procedure(s): US OB BPP w non-stress Accession Number(s): [id number] cc: Mukul Foy D.O.; Ynes Rodriguez NP The [place] [id number] Patient Name: VINNY DOWNEY MRN: [facility]:[id number] date: 2000 Sex: F Assigned Patient Location: Current Patient Location: Accession/Order Number: [id number] Exam Date: 05/07/2025 16:45 Report Date: 05/08/2025 [...] Yepez M.D. 05/08/2025 12:28 AM Dictation Location: [place] [address] Electronically authenticated by: [id number] Y Date: 05/08/2025 00:28 Dictated By: Pavel Yepez M.D. Signed By: 05/08/25 0030 DD/ 0028 TD/TT: Resistor Testing Machine Operator:MILYHRadiology, Radiologist, MD - 06/03/[address] [address] Ultrasound Report Signed Patient: VINNY DOWNEY MR#: [id number] : 2000 Acct:[id number] Age/Sex: 24 / F ADM Date: 05/07/25 Loc: US Attending Dr: Mukul Foy D.O. Ordering Physician: Mukul Foy D.O. Date of Service: 05/07/25 Procedure(s): US OB BPP w non-stress Accession Number(s): [id number] cc: Mukul Foy D.O.; Ynes Rodriguez NP [place] [address] Patient Name: VINNY DOWNEY MRN: [facility]:[id number] date: 2000 Sex: F Assigned Patient Location: US Current Patient Location: Accession/Order Number: [id number] Exam Date: 05/07/2025 16:45 Report Date: 05/08/2025 [...] Yepez M.D. 05/08/2025 12:28 AM Dictation Location: [place] [address] Electronically authenticated by: [id number] Y Date: 05/08/2025 00:28 Dictated By: Pavel Yepez M.D. Signed By: 05/08/2529 DD/ TD/TT: Resistor Testing Machine Operator: DIANE HealthcareRadiology Study observation (narrative)NOMS HealthcareUS OB BPP W NON-STRESSOrdered By: Radiologist Radiology on 88-77-2503FXEL [facility] Work Phone: us OB BPP W NON-STRESSon 84-93-2017Q[place] [address] Ultrasound Report Signed Patient: VINNY DOWNEY MR#: [id number] : 2000 Acct:[id number] Age/Sex: 24 / F ADM Date: 04/30/25 Loc: US Attending Dr: Mukul Foy D.O. Ordering Physician: Mukul Foy D.O. Date of Service: 04/30/25 Procedure(s): US OB BPP w non-stress Accession Number(s): [id number] cc: Mukul Foy D.O.; Ynes Rodriguez [place] [id number] Patient Name: VINNY DOWNEY MRN: [facility]:[id number] date: 2000 Sex: F Assigned Patient Location: [facility] Current Patient Location: Accession/Order Number: [id number] Exam Date: 04/30/2025 15:57 Report Date: 04/30/2025 22:59 At the request of: MUKUL FOY DO Procedure: US OB BPP w non-stress Ultrasound biophysical profile INDICATION: Gestational diabetes COMPARISON: 04/05/2025 FINDINGS/IMPRESSION:: Fetus cephalic position. 8/8 score biophysical profile. heart rate 145 beats per minutes. JAMAL 12.7 cm. Impression dictated by: Chevy Moreland M.D. 04/30/2025 10:59 PM Dictation Location: [place] [address] Electronically authenticated by: [id number] Y Date: 04/30/2025 22:59 Dictated By: Chevy Moreland M.D. Signed By: 04/30/252301 DD/ 58 TD/TT: Resistor Testing Machine Operator:JAMILAHadiolandie, Radiologist, - 04/30/2025 [place] [address] Ultrasound Report Signed Patient: VINNY DOWNEY MR#: [id number] : 2000 Acct:[id number] Age/Sex: 24 / F ADM Date: 04/30/25 Loc: US Attending Dr: Mukul Foy D.O. Ordering Physician: Mukul Foy D.O. Date of Service: 04/30/25 Procedure(s): US OB BPP w non-stress Accession Number(s): [id number] cc: Mukul Foy D.O.; Ynes Rodriguez NP [place] [phone] Patient Name: VINNY DOWNEY MRN: [facility]:[id number] date: 2000 Sex: F Assigned Patient Location: [facility] Current Patient Location: Accession/Order Number: [id number] Exam Date: 04/30/2025 15:57 Report Date: 04/30/2025 22:59 At the request of: MUKUL FOY DO Procedure: US OB BPP w non-stress Ultrasound biophysical profile INDICATION: Gestational diabetes COMPARISON: 04/05/2025 FINDINGS/IMPRESSION:: Fetus cephalic position. 02/28 score biophysical profile. heart rate 145 beats per minutes. JAMAL 12.7 cm. Impression dictated by: Chevy Moreland M.D. 04/30/2025 10:59 PM Dictation Location: [place] [address] Electronically authenticated by: [id number] Y Date: 04/30/2025 22:59 Dictated By: Chevy Moreland M.D. Signed By: 04/30/252301 DD/ 58 TD/TT: Resistor Testing Machine Operator: NOMRenzo HealthcareRadiology Study observation (narrative)NOMS HealthcareUS OB BPP W NON-STRESSOrdered By: Radiologist Radiology on 94-36-7695YWFSKansas City VA Medical Center Work Phone: Urinalysis macro (dipstick) panel (U)on 04-30-2025 Bilirubin, UANegativeNegative - 4(70) +++ mg/dLNODC HealthcareBlood, UANegative Negative - 50 Yunior/mcLNOMS HealthcareClarity, [...] mg/dLNOMS HealthcareNOMS HealthcareUrinalysis macro (dipstick) panel (U)on 53-29-4794Fdvlwdoib, UANegativeNegative - 4(70) +++ mg/dL NOMS HealthcareBlood, UANegativeNegative - 50 Yunior/mcLNOMS HealthcareClarity, UA ClearNOMS HealthcareColor, UAYellowNOMS HealthcareGlucose, UANegativeNegative - 1999(110) ++++ mg/dLNOMS HealthcareInterpretation and review of laboratory resultsNormalNOMS HealthcareKetones, UANegativeNegative - 160(16) ++++ mg/dLNOMS HealthcareLeukocytes, UANegativeNegative - 500+++ Trip/[facility] Nitrite, UANegativeNegative - PositiveNOMS HealthcarepH, UA6.55 - 9NOMS HealthcareProtein, UANegativeNegative - 1999(20) ++++ mg/dLNOMS HealthcareSpec Grav, UA1.0051 - 1.03NODC HealthcareUrobilinogen, UA0.20.2 - 12 mg/dLNOMS HealthcareNOMS HealthcareALL CBC WITH AUTO DIFFon 55-30-4076YQILHQJNJ ABSOLUTE DIJU9XORN HealthcareBasophils/100 WBC (Bld)0.2 %0.2 - 2.0 %[facility] Healthcare Eosinophils/100 WBC (Bld)1.1 %0.9 - 7.0 %NOMS HealthcareErythrocyte distribution width (RBC) [Ratio]12.8 %11.0 - 15.0 %[facility] CenterHematocrit (Bld) [Volume fraction]30.7 %Low36.0 - 48.0 %[facility] CenterHemoglobin (Bld) [Mass/Vol]10.3 g/dLLow12.0 - 16.0 g/dLKansas City VA Medical CenterIMMATURE GRANULOCYTES ABS AUTO0.04HighNOSelect Specialty HospitalImmature granulocytes/100 WBC (Bld)0.4 %0.0 - 0.5 %[facility] Interpretation and review of laboratory resultsAbnormalNOSelect Specialty Hospital LYMPHOCYTES ABSOLUTE AUTO1.9NOSelect Specialty HospitalLymphocytes/100 WBC (Bld)17.1 %Low 20.5 - 60.0 %[facility] CenterMCH (RBC) [Entitic mass]29.7 pg26.7 - 34.0 pgChristian HospitalHC (RBC) [Mass/Vol]33.6 g/dL29.9 - 35.2 g/dLKansas City VA Medical CenterMCV (RBC) [Entitic vol]88.5 fL81.0 - 99.0 fLKansas City VA Medical CenterMONOCYTES ABSOLUTE AUTO0.7NOMS HealthcareMonocytes/100 WBC (Bld)6.5 %1.7 - 12.0 %[facility] CenterNEUTROPHILS ABSOLUTE AUTO8.2HighNOMS HealthcareNeutrophils/100 WBC (Bld)74.7 %43.0 - 75.0 % [facility] CenterPlatelet mean volume (Bld) [Entitic vol]8.7 fLLow9.5 - 13.5 fL [facility] CenterTBH EO #0.1NOMS HealthcareTB SPM222LQGQ [facility] HospitalTB RBC3.47Low [facility] CenterTB BTV28HCRY HealthcareCLINISYNCNOMS HealthcareUS OB GROWTHon 98-46-6481Z[address] [address] Ultrasound Report Signed Patient: VINNY DOWNEY MR#: [id number] : 2000 Acct:[id number] Age/Sex: 24 / F ADM Date: 04/05/25 Loc: Attending Dr: Regina Barton Ordering Physician: Regina Barton Date of Service: 04/05/25 Procedure(s): US OB growth Accession Number(s): [id number] cc: Regina Barton; Physician,Non-Staff MPatricia The [address] [address] Patient Name: VINNY DOWNEY [facility]N: [facility]:[id number] date: 2000 Sex: F Assigned Patient Location: US Current Patient Location: LAB Accession/Order Number: [id number] Exam Date: 04/05/2025 10:00 Report Date: 04/05/2025 [...] Peraza M.D. 04/05/2025 12:08 PM Dictation Location: [place] [address] Electronically authenticated by: [id number] Y Date: 04/05/2025 12:08 Dictated By: Daryn Peraza D.O. Signed By: 04/05/25 1211 DD/ 1208 TD/TT: Resistor Testing Machine Operator:JAMILAHadiologvicki, Radiologist, - 04/05/2025 The [place] [id number] Ultrasound Report Signed Patient: VINNY DOWNEY MR#: [id number] : 2000 Acct:[id number] Age/Sex: 24 / F ADM Date: 04/05/25 Loc: US Attending Dr: Regina Barton Ordering Physician: Regina Barton Date of Service: 04/05/25 Procedure(s): US OB growth Accession Number(s): [id number] cc: Regina Barton; Physician,Non-Staff Khadar The [address] [address] Patient Name: VINNY DOWNEY MRN: [facility]:[id number] date: 2000 Sex: F Assigned Patient Location: Current Patient Location: LAB Accession/Order Number: [id number] Exam Date: 04/05/2025 10:00 Report Date: 04/05/2025 [...] Peraza M.D. 04/05/2025 12:08 PM Dictation Location: [facility] Electronically authenticated by: [id number] Y Date: 04/05/2025 12:08 Dictated By: Daryn Peraza D.O. Signed By: 04/05/25 1211 DD/ 1208 TD/TT: Resistor Testing Machine Operator: DIANE HealthcareRadiology Study observation (narrative)DIANE FletcherUS OB GROWTHOrdered By: Radiologist Radiology on 17-40-9359OMHS Healthcare Work Phone: Urinalysis macro (dipstick) panel [...] mg/dLNOMS HealthcareNOMS HealthcareUrinalysis macro (dipstick) panel (U)on 48-97-7616Wxfmuxise, UANegativeNegative - 4(70) +++ mg/dL NOMS HealthcareBlood, [...] mg/dLNOMS HealthcareNOMS HealthcareUrinalysis macro (dipstick) panel (U)on 64-09-9210Mwwbcquyu, UA NegativeNegative - 4(70) +++ mg/dLNOMS HealthcareBlood, [...] HealthcareNOMS HealthcareUS OB 14+ WEEKS ANATOMY SCANon 84-84-7909GD OB 14+ WEEKS ANATOMY SCANFINDINGS: A single, [...] Delivery: 06/23/25 Gestational Age as of 01/15/2025: 77r2dUckqzcsnho macro (dipstick) panel (U)on 31-18-4539Oiuvwnyhi, UANegativeNegative - 4(70) +++ mg/dLNOMS HealthcareBlood, UANegativeNegative [...] - 12 mg/dLNOMS HealthcareNOMS HealthcareRECURRENT VAGINITIS (HTRX)on 77-96-4188WYUUWBBNU JYRFWGK9ZYVQ HealthcareATOPOBIUM VAGINAENot detectedNOMS HealthcareBVAB 2,3 (BACTERIAL VAGINOSIS ASSOCIATED BACTERIA 2, 3); MOBILUNCUS YDF5NPRM HealthcareBVAB 2,3 (BACTERIAL VAGINOSIS ASSOCIATED BACTERIA 2, 3); MOBILUNCUS SPPNot detectedNOMS HealthcareCANDIDA ALBICANS, PARAPSILOSIS, VKQKUWDDNV7CMHN HealthcareCANDIDA ALBICANS, PARAPSILOSIS, TROPICALISNot detectedNOMS HealthcareCANDIDA GLABRATA0 NOMS HealthcareCANDIDA GLABRATANot detectedNOMS HealthcareCANDIDA SISGNE0VINX HealthcareCANDIDA KRUSEINot detectedNOMS HealthcareCHLAMYDIA LFSEOILGNFP8SFEC HealthcareCHLAMYDIA TRACHOMATISNot detectedNOMS HealthcareGARDNERELLA VAGINALIS0 NOMS HealthcareGARDNERELLA VAGINALISNot detectedNOMS HealthcareMEGASPHAERA (TYPES 1, 2)0NOMS HealthcareMEGASPHAERA (TYPES 1, 2)Not detectedNOMS Healthcare MYCOPLASMA PYMJTKHHZW8KPZQ HealthcareMYCOPLASMA GENITALIUMNot detectedNOMS HealthcareNEISSERIA PSAKIOEGITI9GPDE HealthcareNEISSERIA GONORRHOEAENot detected NOMS HealthcareTRICHOMONAS YGHYMTZQB9AEAN HealthcareTRICHOMONAS VAGINALISNot detectedNOMS HealthcareNOMS HealthcareCBCon 62-13-3178Laxzmbenymq distribution width (RBC) [Ratio]12.6 %11.8 - 14.4 %[facility] CenterHematocrit (Bld) [Volume fraction]35.4 %Low36.3 - 47.1 %[facility] CenterHemoglobin (Bld) [Mass/Vol]11.7 g/dLLow11.9 - 15.1 g/dLBon [facility] HospitalInterpretation and review of laboratory resultsAbnormalBon [facility] (RBC) [Entitic mass]30 pg25.2 - 33.5 pgBon [facility] (RBC) [Mass/Vol]33.1 g/dL 28.4 - 34.8 g/dLBon [facility] HospitalMCV (RBC) [Entitic vol]90.8 fL82.6 - 102.9 fLStonesprings Hospital CenterNucleated RBC/100 WBC (Bld) [Ratio]0 %0.0 per 100 WBCBon [facility] HospitalPlatelet mean volume (Bld) [Entitic vol]8.7 fL8.1 - 13.5 fLStonesprings Hospital CenterPlatelets (Bld) [#/Vol]316 10*3/uLBon [facility] HospitalRBC (Bld) [#/Vol]3.9 10*6/uLLow3.95 - 5.11 m/uLStonesprings Hospital CenterWBC other (Bld) [#/Vol]10.2Bon [facility] Indian HospitalErythrocyte distribution width (RBC) [Ratio]12.6 %Ksbcik62.8-14.4[facility] HospitalComment on above:Performed By: #### GLUSC, CBC #### [address] [place], [facility]83 Parking Enforcement Specialist: Yelena Greco MDHematocrit (Bld) [Volume fraction]35.4 %Low 36.3-47.1MOhio Valley HospitalComment on above:Performed By: #### GLUSC, CBC #### [address] [place] [address] Parking Enforcement Specialist: Yelena Greco MDHemoglobin (Bld) [Mass/Vol]11.7 g/dLLow11.9-15.1 [facility] HospitalComment on above:Performed By: #### GLUSC, CBC #### [address] [place] [address] Parking Enforcement Specialist: YULY ArandaCH (RBC) [Entitic mass]30.0 ubJwwgvp75.2-33.5 [facility] HospitalComment on above:Performed By: #### GLUSC, CBC #### [address] [place], [place] [address] Parking Enforcement Specialist: YULY ArandaCHC (RBC) [Mass/Vol]33.1 g/jTSwtpku89.4-34.8[facility] HospitalComment on above:Performed By: #### GLUSC, CBC #### [address] [place], [place] [address] Parking Enforcement Specialist: YULY ArandaCV (RBC) [Entitic vol]90.8 iCQadpol38.6-102.9 [facility] HospitalComment on above:Performed By: #### GLUSILVINO, CBC #### [address] [place], [place] [address] Parking Enforcement Specialist: Yelena Greco MDNRBC Automated0.0 per 100 WBCNormal0.0[facility] HospitalComment on above:Performed By: #### GLUSILVINO, CBC #### [address] [place], [place] [address] Parking Enforcement Specialist: Sobeida Aranda mean volume (Bld) [Entitic vol]8.7 fL Normal8.1-13.5[facility] HospitalComment on above:Performed By: #### GLUSC, CBC #### [address] [place], [place] [address] Parking Enforcement Specialist: Richie Aranda (Bld) [#/Vol]316 10*3/rJYxwdeq248-198 [facility] HospitalComment on above:Performed By: #### GLUSC, CBC #### [address] [place], [place] [address] Parking Enforcement Specialist: JO ANN ArandaBC (Bld) [#/Vol]3.90 10*6/uLLow3.95-5.11[facility] HospitalComment on above:Performed By: #### GLUSC, CBC #### [address] [place], [place] [address] Parking Enforcement Specialist: JOSELITO Aranda ([facility]) [#/Vol]10.2 10*3/uLNormal3.5-11.3MOhio Valley HospitalComment on above:Performed By: #### GLUSC, CBC #### [address] [place], [place] [address] Parking Enforcement Specialist: Yelena Greco MDGlucose Challenge Gestationalon 11-24-4427CJQ ADMN GlucolaBon [facility] HospitalGlucose 1 Hr post 50 g glucose PO [Mass/Vol]184 mg/pKMsma54 - 135 mg/dLBon [facility] HospitalInterpretation and review of laboratory resultsAbnormalBon [facility] Glucose Toya Scr 50gon 62-69-4038Ltpbnju [Mass/Vol]184 mg/cGVisq17-604ZztnbCleveland Clinic South Pointe HospitalComment on above:Performed By: #### GLUSILVINO, CBC #### [address] [place] [address] Parking Enforcement Specialist: Yelena Greco MDGlu Administered viaGlucolaNormalCleveland Clinic South Pointe HospitalComment on above:Performed By: #### GLUSILVINO, CBC #### [address] [place] [address] Parking Enforcement Specialist: Yelena Greco MDUS OB LESS THAN 14 WEEKS SINGLE OR FIRST GESTATION on 00-46-7042LPFXWGKJGWG: FIRST TRIMESTER OBSTETRIC ULTRASOUND 12/20/2024 TECHNIQUE: 1. [...] by: Noah Rivero MD 12/23/24 Final result [facility] CenterRadiology Study observation (narrative)NOMFreeman Cancer InstituteUS OB LESS THAN 14 WEEKS SINGLE OR FIRST GESTATIONOrdered By: Radiologist Radiology on 07-09-9939GXIN [facility] Work Phone: US OB LESS THAN 14 WEEKS SINGLE OR FIRST GESTATION W DOPPLERon 15-16-5094JW OB LESS THAN 14 WEEKS SINGLE OR [...] by: Noah Rivero MD 12/23/24 Final resultNormalMercy Sandy Lake HospitalUrinalysis macro (dipstick) panel (U)on 75-85-7496Umtnbozfw, UANegativeNegative - 4(70) +++ mg/dLNOMS HealthcareBlood, UAPositiveNegative [...] - 1.03 NOMS HealthcareUrobilinogen, UA1.00.2 - 12 mg/dLChildren's [facility]cy [facility] Healthcare HCG ( test) Ql (U)on 14-78-4403Nlyrtyifwdllds and review of laboratory resultsAbnormalUTAH VALLEY HOSPITAL HealthcarePreg Test, UrPositiveNegativeNOSelect Specialty HospitalNODC HealthcareUS OB TRANSVAGINALon 34-05-0253CA OB TRANSVAGINALEXAM: US OB TRANSVAGINAL HISTORY: Dating. [...] II, MD, PHD at 15-Nov-2024 09:44:32 AM [facility] TeleradiologyNormalNot AvailableComment on above:Order Comment: US OB TRANSVAGINAL No LMP recorded.Urinalysis macro (dipstick) panel (U)on 60-25-3829Tdkjvrvfn, UA NegativeNegative - 4(70) +++ mg/dLNOMS HealthcareBlood, UANegativeNegative - 50 Yunior/[facility] HealthcareClarity, UAClearNODC HealthcareColor, UAYellowNODC HealthcareGlucose, UANegativeNegative - 2000(110) ++++ mg/dLNODC Healthcare Interpretation and review of laboratory resultsNormalKansas City VA Medical CenterKetones, UA NegativeNegative - 160(16) ++++ mg/dLUTAH VALLEY HOSPITAL HealthcareLeukocytes, UANegative Negative - 500+++ Trip/[facility] HealthcareNitrite, UANegativeNegative - Positive NOMS HealthcarepH, UA6.55 - 9NODC HealthcareProtein, UANegativeNegative - 2000(20) ++++ mg/dLNODC HealthcareSpec Grav, UA1.0051 - 1.03NODC Healthcare Urobilinogen, UA0.20.2 - 12 mg/dLNOMS [facility]tering Arms HospitalNODC HealthcareIGP,APTIMA HPV,AGE GDLNon 84-03-6757WDV GDLN ACOG TESTINGNote.[facility] HealthcareComment on above:TESTS RESULT FLAG UNITS REF RANGE LAB Clinician Provided Cytology Information Source.............Cervix;Endocervix No. of containers..01 ThinPrep Vial Age Algo ACOG Addie... -19 08 FLAG LEGEND: L-Low Normal,H-High Normal,LL-Alert Low,HH-Alert High <-Panic Low,>-Panic High,A-Abnormal,AA-Critical Abnormal Performed at: 01 =G [facility] [address] [place] [address] Anastasiya Moses MD, IGP, RFX APTIMA HPV ASCUNote.NOMS HealthcareComment on above:TESTS RESULT FLAG UNITS REF RANGE LAB DIAGNOSIS: 02 NEGATIVE FOR INTRAEPITHELIAL LESION OR MALIGNANCY. Specimen adequacy: 02 Satisfactory for evaluation. Endocervical and/or squamous metaplastic cells (endocervical component) are present. Performed by: Oswald Galaviz, Lamp Wirer ([facility]) . 02 Note: Note 02 The [...] <-Panic Low,>-Panic High,A-Abnormal,AA-Critical Abnormal Performed at: [address] [id number] Anastasiya Moses MD, Performed at: =G - [facility] [address] [id number] Parking Enforcement Specialist: Anastasiya Moses MD, Phone: [phone] Performed at: - [facility] [id number] Parking Enforcement Specialist: Anastasiya Moses MD, Phone: [phone] [facility] ENDOCERVIX CLINISYNCNOMS HealthcareComp Metabolic Profon [id number] [Mass/Vol]4.6 g/dLNormal3.5-5.2[facility]/John Dempsey HospitalComment on above:Performed By: #### CP #### [address] [place] [address] Parking Enforcement Specialist: Yelena Greco MDAlbumin/Glob Ratio1.6Ymennc4.0-2.5[facility]inte HospitalComment on above:Performed By: #### CP #### [address] [place] [address] Parking Enforcement Specialist: Nas Arandakaline Phos71 U/GJeirui21-487GstgmCleveland Clinic South Pointe HospitalComment on above:Performed By: #### CP #### [address] [place] [address] Parking Enforcement Specialist: Yelena Greco MDALT [Catalytic activity/Vol]41 U/QOkws64-30XbwwgCleveland Clinic South Pointe HospitalComment on above:Performed By: #### CP #### [address] [place] [address] Parking Enforcement Specialist: Yelena Greco MDAnion gap [Moles/Vol]10 mmol/LNormal9-16[facility] HospitalComment on above:Performed By: #### CP #### [address] [place] [address] Parking Enforcement Specialist: Yelena Greco MDAST [Catalytic activity/Vol]34 U/KLbswxw02-82Ygvhx [facility] HospitalComment on above:Performed By: #### CP #### [address] [place] [address] Parking Enforcement Specialist: Yelena Greco MDBilirubin [Mass/Vol]0.4 mg/dLNormal0.00-1.20[facility] HospitalComment on above:Performed By: #### CP #### [facility] [address] [place] [address] [place] [address] Parking Enforcement Specialist: Yelena Greco MDBUN/CRE Noqej60Pqds6-84FhxemCleveland Clinic South Pointe Hospital Comment on above:Performed By: #### CP #### [address] [place] [address] Parking Enforcement Specialist: Yelena Greco MDCalcium [Mass/Vol]9.4 mg/dLNormal8.6-10.4[facility] HospitalComment on above:Performed By: #### CP #### [facility] [address] [place] [address] [place] [address] Parking Enforcement Specialist: Yelena Greco MDChloride [Moles/Vol]103 mmol/BWuwqgo27-011Mjmbv [facility] HospitalComment on above:Performed By: #### CP #### [facility] [address] [place] [address] [place] [address] Parking Enforcement Specialist: Yelena Greco MDCO2 [Moles/Vol]25 mmol/OUuvjdp52-61Tldjg [facility] HospitalComment on above:Performed By: #### CP #### [address] [place] [phone] Parking Enforcement Specialist: NATALIO Arandareatinine [Mass/Vol]0.6 mg/dLNormal0.50-0.90[facility] HospitalComment on above:Performed By: #### CP #### [address] [place] [phone] Parking Enforcement Specialist: Yelena Greco MDGFR/1.73 sq M.predicted among non-blacks MDRD (S/P/Bld) [Vol rate/Area]mL/min/{1.73_m2}Normal>60[facility] HospitalComment on above:Result Comment: These results are [...] renal tubular secretion.Performed By: #### CP #### [address] [place] [phone] Parking Enforcement Specialist: Yelena Greco MDGlucose [Mass/Vol]83 mg/nAQwecbg58-64Svbjj [facility]sey HospitalComment on above:Performed By: #### CP #### [address] [place] [phone] Parking Enforcement Specialist: ROLANDO Arandaotassium [Moles/Vol]4.6 mmol/LNormal3.7-5.3MLancaster Municipal Hospital HospitalComment on above:Performed By: #### CP #### [address] [place] [address] Parking Enforcement Specialist: Yelena Greco MDProtein [Mass/Vol]7.8 g/dLNormal6.6-8.7[facility] HospitalComment on above:Performed By: #### CP #### [facility] [address] [place] [address] Parking Enforcement Specialist: KARLIE Arandaodium [Moles/Vol]138 mmol/KRpkibb797-552UobzwCleveland Clinic South Pointe HospitalComment on above:Performed By: #### CP #### [facility] [address] [place] [address] Parking Enforcement Specialist: Yelena Greco MDUrea nitrogen [Mass/Vol]13 mg/dLNormal6-20[facility] HospitalComment on above:Performed By: #### CP #### [facility] [address] [place] [address] Parking Enforcement Specialist: NATALIO Arandaomprehensive Metabolic Panelon [id number] [Mass/Vol]4.6 g/dL3.5 - 5.2 g/dLBon [facility] HospitalAlbumin/Globulin [Mass ratio]1.5 {ratio}1.0 - 2.5Bon [facility] HospitalALP [Catalytic activity/Vol]71 U/L35 - 104 U/LBon [facility] HealthALT [Catalytic activity/Vol]41 U/LHigh10 - 35 U/LBon [facility] HospitalAnion gap [Moles/Vol]10 mmol/L9 - 16 mmol/LBon [facility] HealthAST [Catalytic activity/Vol]34 U/L10 - 35 U/LBon [facility] HospitalBilirubin [Mass/Vol]0.4 mg/dL0.00 - 1.20 mg/dLBon [facility] HospitalCalcium [Mass/Vol]9.4 mg/dL8.6 - 10.4 mg/dLBon [facility] Chloride [Moles/Vol]103 mmol/L98 - 107 mmol/LBon [facility] HealthCO2 [Moles/Vol]25 mmol/L20 - 31 mmol/LBon [facility] HospitalCreatinine [Mass/Vol] 0.6 mg/dL0.50 - 0.90 mg/dLBon [facility] HospitalEst, Glom Filt Rate- PINFBon [facility] HospitalRanken [facility] on above: These results are not [...] secretion. Glucose [Mass/Vol]83 mg/dL74 - 99 mg/dLBon [facility] CenterPattern GenomicsInterpretation and review of laboratory resultsAbnoGuadalupe County HospitalTrovaliMartinsville Memorial HospitalPotassium [Moles/Vol]4.6 mmol/L3.7 - 5.3 mmol/LBon [facility] Medical CenterHailo Adena Fayette Medical CenterProtein [Mass/Vol] 7.8 g/dL6.6 - 8.7 g/dLBon [facility] Medical CenterHailo Adena [facility] Medical CenterSodium [Moles/Vol]138 mmol/L136 - 145 mmol/LBon [facility] CenterPattern GenomicsUrea nitrogen [Mass/Vol]13 mg/dL6 - 20 mg/dL [facility] HospitalPattern GenomicsUrea nitrogen/Creatinine [Mass ratio]22 mg/mgHigh9 - 20 [facility] CenterTrovaliMartinsville Memorial HospitalLipid Panelon 05-20-2024 Cholesterol [Mass/Vol]152 mg/dL0 - 199 mg/dLBon [facility] CenterPattern GenomicsRanken Jordan Pediatric Specialty Hospital on above: Cholesterol Guidelines: <200 Desirable 200-240 Borderline >240 Undesirable Cholesterol in HDL [Mass/Vol]33 mg/dLLow40 - PINF mg/dLBon [facility] CenterPattern Genomics Comment on above: HDL Guidelines: <40 Undesirable 40-59 Borderline >59 Desirable Cholesterol in LDL [Mass/Vol]88 mg/dL0 - 100 mg/dLBon [facility] Medical CenterPattern Genomics Comment on above: LDL Guidelines: <100 Desirable 100-129 Near to/above Desirable 130-159 Borderline >159 Undesirable Direct (measured) LDL and calculated LDL are not interchangeable tests. Cholesterol in VLDL [Mass/Vol]31 mg/dLBon [facility] CenterPattern Genomics Cholesterol.total/Cholesterol in HDL [Mass ratio]5.0 {ratio}[facility] ImmunoPhotonicsInterpretation and review of laboratory resultsAbnoGuadalupe County HospitalTrovali apstrataTriglyceride [Mass/Vol]156 mg/dLHighNINF - 150 mg/dLBon [facility] on above: Triglyceride Guidelines: <150 Desirable 150-199 Borderline 200-499 High >499 Very high Based on AHA Guidelines for fasting triglyceride, April 2012. Bon [facility] HospitalLipid Profileon 56-13-5325Ekzcfnrnicg [Mass/Vol]152 mg/dLNormal0-199[facility] HospitalComchildren's hospital of [place] on above:Result Comment: Cholesterol Guidelines: <200 Desirable 200-240 Borderline >240 UndesirablePerformed By: #### LIPR #### [facility] [address] [place] [address] Parking Enforcement Specialist: NATALIO Tavarezholesterol in HDL [Mass/Vol]33 mg/dLLow>40[facility] on above:Result Comment: HDL Guidelines: <40 Undesirable 40-59 Borderline >59 DesirablePerformed By: #### LIPR #### [facility] [address] [place] [phone] Parking Enforcement Specialist: NATALIO Tavarezholesterol in LDL [Mass/Vol]88 mg/dLNormal0-100 [facility] HospitalComment on above:Result Comment: LDL Guidelines: <100 Desirable 100-129 Near to/above Desirable 130-159 Borderline >159 Undesirable Direct (measured) LDL and calculated LDL are not interchangeable tests.Performed By: #### LIPR #### [employer] [address] [place] [address] Parking Enforcement Specialist: NATALIO Tavarezholesterol in VLDL [Mass/Vol]31 mg/dLNormal [facility] on above:Performed By: #### LIPR #### [employer] [address] [place] [address] Parking Enforcement Specialist: Chance Tavarezstmilad.total/Cholesterol in HDL [Mass ratio]5.0 {ratio}NormalCleveland Clinic South Pointe HospitalComchildren's hospital of [place] on above:Performed By: #### LIPR #### [employer] [address] [place] [phone] Parking Enforcement Specialist: Osvaldo Santamaria MDTriglyceride [Mass/Vol]156 mg/dLHigh<150[facility] HospitalComment on above:Result Comment: Triglyceride Guidelines: <150 Desirable 150-199 Borderline 200-499 High >499 Very high Based on AHA Guidelines for fasting triglyceride, April 2012.Performed By: #### LIPR #### [facility] [address] [place], [place] [phone] Parking Enforcement Specialist: Osvaldo Santamaria MDUS GALLBLADDER RUQon [id number] GALLBLADDER RUQEXAMINATION: RIGHT UPPER QUADRANT ULTRASOUND 03/06/2024 [...] Signed by: Hernandez Stewart MD 03/06/24 Final resultNormalBlanchard Valley Health System 66-55-5677Wbsujophdht distribution width (RBC) [Ratio]12.4 %Mhvixo12.8-14.4[facility] HospitalComment on above: Performed By: #### FEBC #### [employer] [address] [place], [place] [phone] Parking Enforcement Specialist: Osvaldo Santamaria MD #### CBC, CP #### [facility] [address] [place] [address] Parking Enforcement Specialist: Yelena Greco MDHematocrit (Bld) [Volume fraction]40.2 %Normal 36.3-47.1MOhio Valley HospitalComchildren's hospital of [place] on above:Performed By: #### FEBC #### [address] [address] Parking Enforcement Specialist: Osvaldo Santamaria MD #### CBC, CP #### [address] [place], [place] [phone] Parking Enforcement Specialist: Yelena Greco MDHemoglobin (Bld) [Mass/Vol]13.5 g/dLNormal 11.9-15.1[facility] medical centery [facility] Dempsey HospitalComment on above:Performed By: #### FEBC #### [address] [address] Parking Enforcement Specialist: Osvaldo Santamaria MD #### CBC, CP #### [address] [place] [phone] Parking Enforcement Specialist: YULY ArandaCH (RBC) [Entitic mass]29.8 jzAuidok46.2-33.5 [facility] HospitalComment on above:Performed By: #### FEBC #### [address] [address] Parking Enforcement Specialist: Osvaldo Santamaria MD #### CBC, CP #### [address] [place] [address] Parking Enforcement Specialist: YULY ArandaCHC (RBC) [Mass/Vol]33.6 g/sUHxsrsm17.4-34.8[facility] HospitalComment on above:Performed By: #### FEBC #### [address] [address] Parking Enforcement Specialist: Osvaldo Santamaria MD #### CBC, CP #### [address] [place] [address] Parking Enforcement Specialist: YULY ArandaCV (RBC) [Entitic vol]88.7 nWQgzguv52.6-102.9 [facility] HospitalComment on above:Performed By: #### FEBC #### [place] [address] [place] [address] Parking Enforcement Specialist: Osvaldo Santamaria MD #### CBC, CP #### [address] [place], [place] [phone] Parking Enforcement Specialist: Yelena Greco MDNRBC Automated0.0 per 100 WBCNormal0.0[facility] on above:Performed By: #### FEBC #### [address] [address] Parking Enforcement Specialist: Osvaldo Santamaria MD #### CBC, CP #### [address] [place] [address] Parking Enforcement Specialist: Sobeida Aranda mean volume (Bld) [Entitic vol]8.5 fL Normal8.1-13.5[facility] HospitalComment on above:Performed By: #### FEBC #### [address] [address] Parking Enforcement Specialist: Osvaldo Santamaria MD #### CBC, CP #### [address] [place] [address] Parking Enforcement Specialist: ROLANDO Arandalatelets (Bld) [#/Vol]309 10*3/yVOjgdgf521-974 [facility] HospitalComchildren's hospital of [place] on above:Performed By: #### FEBC #### [address] [address] Parking Enforcement Specialist: Osvaldo Santamaria MD #### CBC, CP #### [address] [place] [address] Parking Enforcement Specialist: Yelena Greco MDRBC (Bld) [#/Vol]4.53 10*6/uLNormal3.95-5.11[facility] HospitalComchildren's hospital of [place] on above:Performed By: #### FEBC #### [address] [place] [address] Parking Enforcement Specialist: Osvaldo Santamaria MD #### CBC, CP #### [address] [place] [address] Parking Enforcement Specialist: Yelena Greco MDWBC (Bld) [#/Vol]6.5 10*3/uLNormal3.5-11.3MOhio Valley HospitalComment on above:Performed By: #### FEBC #### [address] [place] [address] Parking Enforcement Specialist: Osvaldo Santamaria MD #### CBC, CP #### [address] [place], [place] 6558583 Parking Enforcement Specialist: Yelena Greco MDComp Metabolic Profon 05-07-4769Uopgeep [Mass/Vol] 4.5 g/dLNormal3.5-5.2MOhio Valley HospitalComment on above:Performed By: #### FEBC #### [address] [place] [address] Parking Enforcement Specialist: Osvaldo Santamaria MD #### CBC, CP #### [address] [place] [address] Parking Enforcement Specialist: Yelena Greco MDAlbumin/Glob Ratio1.0Fddpem0.0-2.5[facility] HospitalComment on above:Performed By: #### FEBC #### [address] [place] [address] Parking Enforcement Specialist: Osvaldo Santamaria MD #### CBC, CP #### [address] [place], [place] 7273583 Parking Enforcement Specialist: Nas Arandakaline Phos74 U/GSbfpbn44-767PovfcCleveland Clinic South Pointe HospitalComment on above:Performed By: #### FEBC #### [address] [address] Parking Enforcement Specialist: Osvaldo Santamaria MD #### CBC, CP #### [address] [place] [address] Parking Enforcement Specialist: Yelena Greco MDALT [Catalytic activity/Vol]61 U/LHigh5-33MerSaint Mary's HospitalComment on above:Performed By: #### FEBC #### [address] [address] Parking Enforcement Specialist: Osvaldo Santamaria MD #### CBC, CP #### [address] [place], [place] [phone] Parking Enforcement Specialist: Yelena Greco MDAnion gap [Moles/Vol]8 mmol/LLow9-17[facility] HospitalComment on above:Performed By: #### FEBC #### [address] [address] Parking Enforcement Specialist: Osvaldo Santamaria MD #### CBC, CP #### [address] [place], [place] [phone] Parking Enforcement Specialist: Yelena Greco MDAST [Catalytic activity/Vol]43 U/LHigh<32[facility] Hospitalcy [facility] Dempsey HospitalComment on above:Performed By: #### FEBC #### [address] [address] Parking Enforcement Specialist: Osvaldo Santamaria MD #### CBC, CP #### [address] [place], [place] 079[address]83 Parking Enforcement Specialist: Yelena Greco MDBilirubin [Mass/Vol]0.2 mg/dLLow0.3-1.2[facility] [place] HospitalComment on above:Performed By: #### FEBC #### [address] [address] Parking Enforcement Specialist: Osvaldo Santamaria MD #### CBC, CP #### [address] [place], [place] 0859483 Parking Enforcement Specialist: Yelena Greco MDBUN/CRE Yzjng90Dtxkdn3-13Aqlcw [facility] Comment on above:Performed By: #### FEBC #### [address] [address] Parking Enforcement Specialist: Osvaldo Santamaria MD #### CBC, CP #### [facility] [address] [place] [address] [place] [address] Parking Enforcement Specialist: Yelena Greco MDCalcium [Mass/Vol]9.4 mg/dLNormal8.6-10.4[facility] HospitalComment on above:Performed By: #### FEBC #### [address] [address] Parking Enforcement Specialist: Osvaldo Santamaria MD #### CBC, CP #### [address] [place], [place] 6520083 Parking Enforcement Specialist: NATALIO Arandahloride [Moles/Vol]100 mmol/NTztffx20-062DlsvwCleveland Clinic South Pointe HospitalComment on above:Performed By: #### FEBC #### [address] [address] Parking Enforcement Specialist: Osvaldo Santamaria MD #### CBC, CP #### [address] [place], [place] 5214983 Parking Enforcement Specialist: Yelena Greco MDCO2 [Moles/Vol]28 mmol/ULfmekz92-62PtrvpCleveland Clinic South Pointe HospitalComment on above:Performed By: #### FEBC #### [address] [address] Parking Enforcement Specialist: Osvaldo Santamaria MD #### CBC, CP #### [address] [place], [place] 9694583 Parking Enforcement Specialist: NATALIO Arandareatinine [Mass/Vol]0.6 mg/dLNormal0.5-0.9[facility] HospitalComment on above:Performed By: #### FEBC #### [address] [address] Parking Enforcement Specialist: Osvaldo Santamaria MD #### JERAMIE, CP #### [address] [place], [place] 1731583 Parking Enforcement Specialist: Yelena Greco MDGFR/1.73 sq M.predicted among non-blacks MDRD (S/P/Bld) [Vol rate/Area]mL/min/{1.73_m2}Normal>60[facility] HospitalComment on above:Result Comment: These results are [...] renal tubular secretion.Performed By: #### FEBC #### [address] [address] Parking Enforcement Specialist: Osvaldo Santamaria MD #### JERAMIE, CP #### [address] [place], [place] 6858483 Parking Enforcement Specialist: Yelena Greco MDGlucose [Mass/Vol]91 mg/tYJxzmfu03-60GpeseOhio Valley HospitalComment on above:Performed By: #### FEBC #### [address] [address] Parking Enforcement Specialist: Osvaldo Santamaria MD #### CBC, CP #### [address] [place] [address] Parking Enforcement Specialist: ROLANDO Arandaotassium [Moles/Vol]4.2 mmol/LNormal3.7-5.3[facility] medical centery [place] HospitalComment on above:Performed By: #### FEBC #### [address] [address] Parking Enforcement Specialist: Osvaldo Santamaria MD #### CBC, CP #### [address] [place] [phone] ( Parking Enforcement Specialist: ROLANDO Arandarotein [Mass/Vol]7.6 g/dLNormal6.4-8.3[facility] [place] HospitalComment on above:Performed By: #### FEBC #### [address] [address] Parking Enforcement Specialist: Osvaldo Santamaria MD #### CBC, CP #### [address] [place] [phone] ( Parking Enforcement Specialist: KARLIE Arandaodium [Moles/Vol]136 mmol/MHhzhtf829-158Gbpqv [facility] HospitalComment on above:Performed By: #### FEBC #### [address] [address] Parking Enforcement Specialist: Osvaldo Santamaria MD #### CBC, CP #### [address] [place] [address] ( Parking Enforcement Specialist: Yelena Greco MDUrea nitrogen [Mass/Vol]12 mg/dLNormal6-20[facility] HospitalComment on above:Performed By: #### FEBC #### [address] [address] Parking Enforcement Specialist: Osvaldo Santamaria MD #### CBC, CP #### [address] [place] [phone] ( Parking Enforcement Specialist: Yelena Greco MDIron Binding Cap.on 02-16-2024% Fe Rtmlfstsjf01 % Bsyfoe81-65Xzrno [place] HospitalComment on above:Performed By: #### FEBC #### [facility] [address] [place] [address] Parking Enforcement Specialist: Osvaldo Santamaria MD #### CBC, CP #### [address] [place], [place] 2255483 Parking Enforcement Specialist: Yelena Greco MDIron [Mass/Vol]92 ug/cWPnkoor97-232MoogaCleveland Clinic South Pointe HospitalComment on above:Performed By: #### FEBC #### [address] [place] [address] Parking Enforcement Specialist: Osvaldo Santamaria MD #### CBC, CP #### [address] [place], [place] [address] Parking Enforcement Specialist: Yelena Greco MDTotal Fe Binding Rji424 ug/fPYeyyth760-128OzszvCleveland Clinic South Pointe HospitalComment on above:Performed By: #### FEBC #### [address] [address] Parking Enforcement Specialist: Osvaldo Santamaria MD #### CBC, CP #### [address] [place], [place] 285[address]383 Parking Enforcement Specialist: Yelena Greco MDUnbound Fe Bind Wnp376 ug/gXBiendf754-027QqbaqCleveland Clinic South Pointe HospitalComment on above:Performed By: #### FEBC #### [facility] [address] [place] [address] Parking Enforcement Specialist: Osvaldo Santamaria MD #### CBC, CP #### [address] [place], [place] 535[address]83 Parking Enforcement Specialist: Yelena Greco MDLipid Profileon 28-76-8385Zyrryjmjswv [Mass/Vol] 245 mg/dLHigh0-199[facility] HospitalComment on above:Result Comment: Cholesterol Guidelines: <200 Desirable 200-240 Borderline >240 UndesirablePerformed By: #### LIPR #### [facility] [address] [place] [address] Parking Enforcement Specialist: Osvaldo Santamaria MDCholesterol in HDL [Mass/Vol]34 mg/dLLow>40[facility] HospitalComment on above:Result Comment: HDL Guidelines: <40 Undesirable 40-59 Borderline >59 DesirablePerformed By: #### LIPR #### [facility] [address] [place] [address] Parking Enforcement Specialist: NATALIO Tavarezholesterol in LDL [Mass/Vol]159 mg/dLHigh0-100 [facility] HospitalComchildren's hospital [facility] [place] on above:Result Comment: LDL Guidelines: <100 Desirable 100-129 Near to/above Desirable 130-159 Borderline >159 Undesirable Direct (measured) LDL and calculated LDL are not interchangeable tests.Performed By: #### LIPR #### [facility] [address] [place] [address] Parking Enforcement Specialist: NATALIO Tavarezholesterol in VLDL [Mass/Vol]52 mg/dLNormal [facility] HospitalComchildren's hospital [facility] [place] on above:Performed By: #### LIPR #### [facility] [address] [place] [address] Parking Enforcement Specialist: Chance Tavarezstmilad.total/Cholesterol in HDL [Mass ratio]7.0 {ratio}NormalCleveland Clinic South Pointe HospitalComchildren's hospital of [place] on above:Performed By: #### LIPR #### [facility] [address] [place] [address] Parking Enforcement Specialist: Osvaldo Santamaria MDTriglyceride [Mass/Vol]259 mg/dLHigh<150[facility] Hospitalcy [facility] HospitalComchildren[facility] [place] on above:Result Comment: Triglyceride Guidelines: <150 Desirable 150-199 Borderline 200-499 High >499 Very high Based on AHA Guidelines for fasting triglyceride, April 2012.Performed By: #### LIPR #### [facility] [address] [place] [address] Parking Enforcement Specialist: Osvaldo Santamaria MDOffice Visiton [id number]-up visit [id number] Vinny Downey 2000 F Date Provider Department Center 07/11/2023 RAJENDRA GUNN [facility] Family History Problem Relation Age of Onset Anemia Mother Supraventricular tachycardia Father Hyperlipidemia Father Diabetes Sister Family Status - Relation Status Age at Mother Father Sister Level of Service:96519 [place] OFFICE/OUTPATIENT NEW MODERATE MDM 45 MINUTESNormal [facility] HospitalOffice Visiton [id number]-up visit [id number] Vinny Downey 2000 F Date Provider Department Center 03/20[facility]2023 [facility] Family History Problem Relation Age of Onset Anemia Mother Supraventricular tachycardia Father Hyperlipidemia Father Diabetes Sister Family Status - Relation Status Age at Mother Father Sister Level of Service:75277 [place] OFFICE/OUTPATIENT NEW LOW MDM 30-44 MINUTESNormal [facility] HospitalUS PREG BIOPHY W NON STRESSon [id number] PREG BIOPHY W NON STRESSEXAMINATION: US PREG [...] Electronically authenticated by: YELENA CARLOS Date: 2022-12-20 07:03[facility] PREG PLACENTAon [id number] PREG PLACENTAEXAMINATION: US PREG PLACENTA HISTORY: Left [...] authenticated by: LUIS ALFREDO GRANT Date: 2022-12-12 14:56[facility] HospitalUS PREG BIOPHY W NON STRESSon [id number] PREG BIOPHY W NON STRESSEXAMINATION: US PREG [...] authenticated by: LUIS ALFREDO GRANT Date: 2022-12-11 04:08[facility] PREG GROWTHon [id number] PREG GROWTHEXAMINATION: US PREG GROWTH HISTORY: High [...] authenticated by: LUIS ALFREDO GRANT Date: 2022-12-11 04:06[facility] HospitalGTT 3 HR PREGon [id number] [Mass/Vol]98 mg/dLNormal 74-106Prem[facility] Health [facility] Valley Medical CenterComment on above:Performed By: #### GTT3P #### [facility] [address] [place] [address] Dr. Emilee SpringerGlucose [Mass/Vol]170 mg/dLNoWestern Reserve HospitalComment on above:Performed By: #### GTT3P #### [facility] [address] [place] [address] Dr. Emilee SpringerGlucose [Mass/Vol]201 mg/dLNoWestern Reserve HospitalComment on above:Performed By: #### GTT3P #### [facility] [address] [place] [address] Dr. Emilee SpringerGlucose [Mass/Vol]115 mg/dLNoWestern Reserve HospitalComment on above:Performed By: #### GTT3P #### [facility] [address] [place] [address] Dr. Emilee Mcconnell PREG INCOMPLETE ANATOMYon [id number] PREG INCOMPLETE ANATOMY EXAM: US PREG INCOMPLETE ANATOMY HISTORY: screening COMPARISON: 09/10/2022 TECHNIQUE: Transabdominal FINDINGS: position: Transverse, head to the maternal right Heart rate: 157 bpm Normal observed anatomy: Nose/lips, four-chamber heart, left ventricular outflow tract, right ventricular outflow tract, spine IMPRESSION: Normal observed anatomy Electronically authenticated by: YELENA CARLOS Date: 2022-10-16 08:[address] [place] [address] AUTO DIFFon [id number] #0.0 103/ulNormal0.0-0.1The [facility] HospitalComment on above:Performed By: #### CBC #### [facility] [address] [place] [address] Dr. Emilee SpringerBasophils/100 WBC (Bld)0.2 %Normal0.2-2.0The [facility] Comment on above:Performed By: #### CBC #### [facility] [address] [place] [address] Dr. Emilee Weldon #0.1 103/ulNormal0.0-0.7The [facility] HospitalComment on above: Performed By: #### CBC #### [facility] [address] [address] [address] Emilee Cintronosinophils/100 WBC (Bld)0.8 %Critically low0.9-7.0The [facility] Hospitalment on above:Performed By: #### CBC #### [facility] [address] [place] [address] Dr. Emilee Cintronrythrocyte distribution width (RBC) [Ratio]12.5 %Xcwjwu32.0-15.0 The [facility] HospitalComment on above:Performed By: #### CBC #### [facility] [address] [place] [address] Dr. Emilee SpringerHematocrit (Bld) [Volume fraction]29.8 %Critically low36.0-48.0 [facility] on above:Performed By: #### CBC #### [facility] [address] [place] [address] Dr. Emilee SpringerHemoglobin (Bld) [Mass/Vol]10.0 g/dLCritically low12.0-16.0The [facility] Hospitalment on above:Performed By: #### CBC #### [facility] [address] [place] [address] Dr. Emilee Van #0.05 10e3/ulCritically high0.00-0.03The [facility] Comment on above:Performed By: #### CBC #### [facility] [address] [place] [address] Dr. Emilee Van %0.5 %Normal0.0-0.5The [facility] Hospitalment on above: Performed By: #### CBC #### [facility] [address] [place] [address] Dr. Emilee ReesH #1.6 103/ulNormal1.2-3.8The [facility] Hospitalment on above:Performed By: #### CBC #### [facility] [address] [place] [address] Dr. Emilee Espinozamphocytes/100 WBC (Bld)15.3 %Critically low20.5-60.0The [facility] Hospitalment on above:Performed By: #### CBC #### [facility] [address] [address] [address] Emilee Esquivel DIFF REQNONormalThe [facility] HospitalComment on above: Performed By: #### CBC #### [facility] [address] [place] [address] Dr. Emilee Guevara (RBC) [Entitic mass]30.2 jqExugcd81.7-34.0The [facility] HospitalComment on above:Performed By: #### CBC #### [facility] [address] [place] [address] Dr. Emilee Guevara (RBC) [Mass/Vol]33.6 g/rREyokdk37.9-35.2The [facility] HospitalComment on above:Performed By: #### CBC #### [facility] [address] [place] [address] Dr. Emilee Guevara (RBC) [Entitic vol]90.0 rBNofwxb38.0-99.0The [facility] HospitalComment on above:Performed By: #### CBC #### [facility] [address] [place] [address] Dr. Emilee Banegas #0.6 103/ulNormal0.3-0.8The [facility] HospitalComment on above:Performed By: #### CBC #### [facility] [address] [place] [address] Dr. Emilee Hightowerocytes/100 WBC (Bld)5.8 %Normal1.7-12.0[facility] Comment on above:Performed By: #### CBC #### [facility] [address] [place] [address] Dr. Emilee Fernandez #8.2 103/ulCritically high1.4-6.5The [facility] Comment on above:Performed By: #### CBC #### [facility] [address] [place] [address] Dr. Emilee Meeksutrophils/100 WBC (Bld)77.4 %Critically high43.0-75.0The [facility] HospitalComment on above:Performed By: #### CBC #### [facility] [address] [address] [address] Emilee Olmedolet mean volume (Bld) [Entitic vol]8.5 fLCritically low 9.5-13.5The [facility] HospitalComment on above:Performed By: #### CBC #### [facility] [address] [place] [address] Dr. Emilee SpringerPLT347 103/ttLgcwjr632-143Ero [facility] HospitalComment on above: Performed By: #### CBC #### [facility] [address] [place] [address] Dr. Emilee SpringerRBC3.31 106/ulCritically low4.20-5.40The [facility] HospitalComment on above:Performed By: #### CBC #### [facility] [address] [place] [address] Dr. Emilee SpringerWBC10.6 103/ulNormal4.0-11.0The [facility] HospitalComment on above:Performed By: #### CBC #### [facility] [address] [place] [address] Dr. Emilee SpringerGLUCOSE - 1HRon 88-26-5765Bccwoot [Mass/Vol]176 mg/dLCritically bwdx02-789Pes [facility] HospitalComment on above:Performed By: #### GLU1HR #### [facility] [address] [place] [address] Dr. Emilee SpringerCHLAMYDIA/GONOCOCCUS ANISA (SWAB/URINE/PAPon [id number] trachomatis, NAANegativeNormalNegativeThe [facility] HospitalComment on above: Performed By: #### CBC #### [facility] [address] [place] [address] Dr. Emilee SpringerNeisseria gonorrhoeae, NAANegativeNormalNegativeThe [facility] HospitalComment on above:Performed By: #### CBC #### [facility] [address] [place] [address] Dr. Emilee SpringerVAGINITIS/VAGINOSIS DNA PROBEon 81-25-5762Koddkiz speciesNegative NormalNegativePremier Health Upper Valley Medical CenterComment on above:Performed By: #### CBC #### [facility] [address] [place] [address] Dr. Emilee Siegel vaginalisNegativeNormalNegativePremier Health [facility] Comment on above:Performed By: #### CBC #### [facility] [address] [place] [address] Dr. Emilee Gonzalez vaginalisNegativeNormalNegativePremier Health [facility] Comment on above:Performed By: #### CBC #### [facility] [address] [place] [address] Dr. Emilee SpringerUS PREG ANATOMY SINGLEon [id number] PREG ANATOMY SINGLE EXAMINATION: US PREG ANATOMY [...] authenticated by: LUIS ALFREDO GRANT Date: 2022-09-13 16:57[facility] MATERNAL FOR SPINA BIFIDAon [id number] MoM0.42[facility] HospitalComment on above:Performed By: #### AFPMAT #### [facility] [address] [address] [address] Emilee Yoder Value16.7 ng/mLNKettering Health SpringfieldComment on above: Performed By: #### AFPMAT #### [facility] [address] [address] [address] Emilee Yoder, Serum for Spina BifidaReportGrand [facility] Joint [facility] Hospital Comment on above:Performed By: #### AFPMAT #### [facility] [address] [address] [address] Emilee BaMiddletown HospitalComment on above:Result Comment: Pam Machado, Ph.D., [facility] Director . References: Available Upon Request. . Multiples Of Median Cutoffs For AFP Elevations Berkowitz 2.5 Black 2.8 IDD 2.0 Twins 4.5 Abbreviation Definitions IDD - Insulin Dep Diabetes OSBR - Open Spina Bifida Risk . For further inquiries contact [employer] [facility] at [phone]. . This test was developed and its performance characteristics determined by [employer]. It has not been cleared or approved by the Food and Drug Administration.Performed By: #### AFPMAT #### [facility] [address] [address] [address] Emilee Barrow Age Collection Date18.6 weeksGrand [facility] Comment on above:Performed By: #### AFPMAT #### [facility] [address] [address] [address] Emilee Vargas, Age Based onEDDGrand Lake Joint Township District Memorial HospitalComment on above:Result Comment: 01/26/2023 Recalculations are not recommended when gestational dating by LMP and ultrasound are within 10 days.Performed By: #### AFPMAT #### [facility] [address] [place] [address] Dr. Emilee SpringerCommunity Memorial Hospital on above:Result Comment: Not provided. .Performed By: #### AFPMAT #### [facility] [address] [place] [address] Dr. Emilee SpringerNorwalk Memorial Hospital on above: Result Comment: Interpretation: Screen [...] Customer Services to discuss available options. The [employer] [employer] recommends amniocentesis be offered to women age 35 and older.Performed By: #### AFPMAT #### [facility] [address] [place] [address] Dr. Emilee Collazornakrista Age at EDD22.3 yrMount Carmel Health System on above:Performed By: #### AFPMAT #### [facility] [address] [place] [address] Dr. Emilee DialSiloam Springs Regional HospitalComchildren's hospital of [place] on above:Result Comment: Not provided. .Performed By: #### AFPMAT #### [facility] [address] [place] [address] Dr. Emilee CanoBR Risk 1 [id number] Lake Joint Township District Memorial HospitalComchildren's hospital [facility] [place] on above: Performed By: #### AFPMAT #### [facility] [address] [place] [address] Dr. Emilee Galo.NormalPremier Health Upper Valley Medical CenterComchildren's hospital of [place] on above:Performed By: #### AFPMAT #### [facility] [address] [place] [address] Dr. Emilee FinnSalem City Hospital on above:Result Comment: Not provided. .Performed By: #### AFPMAT #### [facility] [address] [place] [address] Dr. Emilee SpringerTest Results:NegativeNormFostoria City Hospital on above: Performed By: #### AFPMAT #### [facility] [address] [place] [address] Dr. Emilee Gonzalezbella antibody, IgGon 01-28-7096Kikerus virus IgG Ql (S)314.5 IU/mLBON OHIOHEALTH PICKERINGTON METHODIST HOSPITALComchildren's hospital [facility] [place] on above: REFERENCE RANGE: <5.0 NON-REACTIVE (non-immune) 5.0 TO 9.9 EQUIVOCAL >=10.0 REACTIVE (immune) B[facility] HOSPITALHE B SURFACE ANTIGEN SCREENon 05-84-3177URsCe Screen NegativeNormalNegativeThe [facility] on above:Performed By: #### HBSANS #### [facility] [address] [place] [address] Dr. Emilee IsraelPATITIS C VIRUS AB W/ REFLEX QUANTon [id number] AB<0.1Normal 0.0-0.9The [facility] on above:Performed By: #### HCVPCRR #### [facility] [address] [place] [address] Dr. Emilee SpringerInterpretation:CommentMount Carmel Health System on above:Result Comment: Negative Not infected with HCV, unless recent infection is suspected or other evidence exists to indicate HCV infection.Performed By: #### HCVPCRR #### [facility] [address] [place] [address] Dr. Emiele SpringerHIV 1 AND 2 WITH REFLEXon [id number] Screen 4th Generation wRfxNon-ReactiveNormalNon ReactiveThe [facility] on above:Result Comment: HIV Negative HIV-1/HIV-2 antibodies and HIV-1 p24 antigen were NOT detected. There is no laboratory evidence of HIV infection.Performed By: #### CBC #### [facility] [address] [place] [address] Dr. Emilee SpringerRPR QUANTon 75-84-4758Niree Plasma Reagin, QuantNon-Reactive NormalNonRea<1:1The [facility] HospitalComment on above:Result Comment: Please Note: This test does not meet current guidelines for screening and diagnosis of syphilis. This test is intended for following treatment response in patients being treated for syphilis infection. To screen for syphilis infection, a reflex cascade that includes both RPR and a treponema-specific assay should be utilized, such as Treponema pallidum (Syphilis) Screening [place] (436821) or Rapid Plasma Reagin (RPR) Test With Reflex to Quantitative RPR and Confirmatory Treponema pallidum Antibodies (630228).Performed By: #### CBC #### [facility] [address] [place] [address] Dr. Emilee Ramírez AB IGGon 82-05-8227Nkuuvdj Antibodies, IgG5.03 index NormalImmune >0.99The [facility] HospitalComment on above:Result Comment: Non- immune <0.90 Equivocal 0.90 - 0.99 Immune >0.99Performed By: #### RUBIGG #### [facility] [address] [place] [address] Dr. Emilee Killian AUTO DIFFon [id number] #0.0 103/ulNormal0.0-0.1[facility] Medical CenterComment on above:Performed By: #### GLU1HR #### [facility] [address] [place] [address] Dr. Emilee SpringerBasophils/100 WBC (Bld)0.2 %Normal0.2-2.0The [facility] Comment on above:Performed By: #### GLU1HR #### [facility] [address] [place] [address] Dr. Emilee Weldon #0.1 103/ulNormal0.0-0.7The [facility] HospitalComment on above: Performed By: #### GLU1HR #### [facility] [address] [place] [address] Dr. Emilee Cintronosinophils/100 WBC (Bld)0.9 %Normal0.9-7.0The [facility] Comment on above:Performed By: #### GLU1HR #### [facility] [address] [place] [address] Dr. Emilee Cintronrythrocyte distribution width (RBC) [Ratio]11.9 %Tzykzn09.0-15.0 [facility] CenterComment on above:Performed By: #### GLU1HR #### [facility] [address] [place] [address] Dr. Emilee SpringerHematocrit (Bld) [Volume fraction]32.9 %Critically low36.0-48.0 The [facility] HospitalComment on above:Performed By: #### GLU1HR #### [facility] [address] [place] [address] Dr. Emilee SpringerHemoglobin (Bld) [Mass/Vol]11.6 g/dLCritically low12.0-16.0The [facility] HospitalComment on above:Performed By: #### GLU1HR #### [facility] [address] [place] [address] Dr. Emilee Van #0.03 10e3/ulNormal0.00-0.03The [facility] HospitalComment on above:Performed By: #### GLU1HR #### [facility] [address] [place] [address] Dr. Emilee Van %0.3 %Normal0.0-0.5The [facility] HospitalComment on above: Performed By: #### GLU1HR #### [facility] [address] [place] [address] Dr. Emilee ReesH #2.1 103/ulNormal1.2-3.8The [facility] HospitalComment on above:Performed By: #### GLU1HR #### [facility] [address] [place] [address] Dr. Emilee Espinozamphocytes/100 WBC (Bld)20.2 %Critically low20.5-60.0The [facility] HospitalComment on above:Performed By: #### GLU1HR #### [facility] [address] [place] [address] Dr. Emilee Esquivel DIFF REQNONormalThe [facility] HospitalComment on above: Performed By: #### GLU1HR #### [facility] [address] [place] [address] Dr. Emilee Guevara (RBC) [Entitic mass]31.4 oyGikcis67.7-34.0The [facility] HospitalComment on above:Performed By: #### GLU1HR #### [facility] [address] [place] [address] Dr. Emilee Guevara (RBC) [Mass/Vol]35.3 g/dLCritically high29.9-35.2The [facility] HospitalComment on above:Performed By: #### GLU1HR #### [facility] [address] [place] [address] Dr. Emilee Guevara (RBC) [Entitic vol]89.2 nLQlhpla33.0-99.0The [facility] HospitalComment on above:Performed By: #### GLU1HR #### [facility] [address] [place] [address] Dr. Emilee Banegas #0.7 103/ulNormal0.3-0.8The [facility] HospitalComment on above:Performed By: #### GLU1HR #### [facility] [address] [place] [address] Dr. Emilee Hightowerocytes/100 WBC (Bld)7.0 %Normal1.7-12.0[facility] Comment on above:Performed By: #### GLU1HR #### [facility] [address] [place] [address] Dr. Emilee Fernandez #7.5 103/ulCritically high1.4-6.5The [facility] Comment on above:Performed By: #### GLU1HR #### [facility] [address] [place] [address] Dr. Emilee Meeksutrophils/100 WBC (Bld)71.4 %Cvkscl70.0-75.0The [facility] HospitalComment on above:Performed By: #### GLU1HR #### [facility] [address] [place] [address] Dr. Emilee SpringerPlatelet mean volume (Bld) [Entitic vol]9.1 fLCritically low 9.5-13.5The [facility] HospitalComment on above:Performed By: #### GLU1HR #### [facility] [address] [place] [address] Dr. Emilee SpringerPLT311 103/aiYvqjeu493-937Yuz [facility] HospitalComment on above: Performed By: #### GLU1HR #### [facility] [address] [place] [address] Dr. Emilee SpringerRBC3.69 106/ulCritically low4.20-5.40The [facility] HospitalComchildren's hospital [facility] [place] on above:Performed By: #### GLU1HR #### [facility] [address] [place] [address] Dr. Emilee SpringerWBC10.5 103/ulNormal4.0-11.0The [facility] HospitalComment on above:Performed By: #### GLU1HR #### [facility] [address] [place] [address] Dr. Emilee SpringerCULTDENZEL URINEon 63-23-0519ODOCIWU URINECulture Observations: LIGHT GROWTH OF MIXED GENITAL BREN. NO POTENTIAL PATHOGENS SEEN.NormalThe [facility] HospitalComchildren's hospital of [place] on above:Performed By: #### GLU1HR #### [facility] [address] [place] [address] Dr. Emilee SpringerGLYCOHEMOGLOBIN A1Con [id number] RECOMMENDATIONSEE BELOWNormhi The [facility] HospitalComchildren's [facility] [place] on above:Result Comment: ADA RECOMMENDED LIMIT 4.0 - 6.0 ADA THERAPEUTIC TARGET < 7.0 ACTION SUGGESTED > 7.0Performed By: #### A1C #### [facility] [address] [place] [address] Dr. Emilee SpringerGlucose [Mass/Vol]108 mg/dLNormalThe [facility] HospitalComment on above:Performed By: #### A1C #### [facility] [address] [place] [address] Dr. Emilee SpringerHbA1c (Bld) [Mass fraction]5.4 %Normal4.5-6.2The [facility] HospitalComment on above:Performed By: #### A1C #### [facility] [address] [place] [address] Dr. Emilee SpringerNATERA BOX TEST PT SEND OUTon [id number] TO REF LAB07/04/2022 NormalThe [facility] HospitalComment on above:Performed By: #### NBOX #### [facility] [address] [place] [address] Dr. Emilee SpringerTYPE AND SCREENon [id number] AND SCREENNegativeGrand Lake Joint Township District Memorial HospitalComment on above:Performed By: #### GLU1HR #### [facility] [address] [place] [address] Dr. Emilee SpringerUS PREG TVon [id number] PREG TVEXAMINATION: US PREG TV HISTORY: test [...] Electronically authenticated by: YELENA CARLOS Date: 2022-06-23 17:00NoWestern Reserve HospitalHCG, Quantitative, Pregnancyon [id number] SENTARA CAREPLEX HOSPITALComment on above: Non-preg premeno <=5 Postmeno <=8 Male <=3 If HCG results do not concur with clinical observations, additional testing to confirm results is recommended. Interpretation and review of laboratory resultsAbMarshall County Healthcare Center ACOG PANEL 2: 21 to 29on 04-24-2022..NormalThe [facility] HospitalComment on above:Performed By: #### [id number] #### [facility] [address] [place] [address] Dr. Emilee SpringerAge Gdln ACOG Jiovgxf16-16YkgktbSmeMercy Health St. [facility] on above:Performed By: #### [id number] #### [facility] [address] [place] [address] Dr. Emilee SpringerDIAGNOSIS:CommentMount Carmel Health System on above: Result Comment: NEGATIVE FOR INTRAEPITHELIAL LESION OR MALIGNANCY. CELLULAR CHANGES ASSOCIATED WITH INFLAMMATION ARE PRESENT.Performed By: #### [id number] #### [facility] [address] [place] [address] Dr. Emilee SpringerMethodology:CommentMount Carmel Health System on above: Result Comment: This liquid based ThinPrep(R) pap test was screened with the use of an image guided system.Performed By: #### [id number] #### [address] [place] [address] [address] Emilee SpringerNote:CommentMount Carmel Health System on above:Result Comment: The Pap smear is a screening test designed to aid in the detection of premalignant and malignant conditions of the uterine cervix. It is not a diagnostic procedure and should not be used as the sole means of detecting cervical cancer. Both false-positive and false-negative reports do occur. .Performed By: #### [id number] #### [facility] [address] [place] [address] Dr. Emilee SpringerPerformed by:CommentMount Carmel Health System on above: Result Comment: Mary Lou Adams CytotechnologistPerformed By: #### [id number] #### [facility] [address] [place] [address] Dr. Emilee SpringerReflex Criteria:CommentMount Carmel Health System on above:Result Comment: The HPV DNA reflex criteria were not met with this specimen result therefore, no HPV testing was performed. .Performed By: #### [id number] #### [facility] [address] [place] [address] Dr. Emilee SpringerSpecimen adequacy:CommentNormalThe Heri HospitalComment on above:Result Comment: Satisfactory for evaluation. Endocervical and/or squamous metaplastic cells (endocervical component) are present.Performed By: #### [id number] #### [facility] [address] [place], [place] [address] Dr. Emilee Santoro, Quantitative, Pregnancyon 88-28-4793dND Byncr07Gnue<5 IU/L [facility] HospitalVelo MediaComchildren[facility] on above: Non-preg premeno <=5 Postmeno <=8 Male <=3 If HCG results do not concur with clinical observations, additional testing to confirm results is recommended. Elevated results not associated with may be found in patients with other diseases such as tumors of the germ cells (testis, ovaries, etc.), bladder, pancreas, stomach, lungs, and liver. Interpretation and review of laboratory resultsAbnoAscension St Mary's Hospital RENAL COMPLETEOrdered By: Lorena Ricks on 85-81-1220Xmshvqlbhjoz ultrasound of the kidneys and urinary bladder.[employer] Phone: eXAMINATION: RETROPERITONEAL ULTRASOUND OF THE KIDNEYS AND URINARY BLADDER 11/25/2020 COMPARISON: None HISTORY: ORDERING SYSTEM PROVIDED HISTORY: Frequent UTI TECHNOLOGIST PROVIDED HISTORY: This procedure can be scheduled via wikifolio. Access your wikifolio account by visiting [employer]. FINDINGS: Kidneys: The right kidney measures 11.1 cm in length and the left kidney measures 11.6 cm in length. Kidneys demonstrate normal cortical echogenicity. No evidence of hydronephrosis or intrarenal stones. Bladder: Unremarkable appearance of the bladder. No significant post void residual.[employer] Phone: e, [facility] Incoming Radiant Results From [employer] - 11/25/2020 3:59 PM EDT EXAMINATION: RETROPERITONEAL ULTRASOUND OF THE KIDNEYS AND URINARY BLADDER 11/25/2020 COMPARISON: None HISTORY: ORDERING SYSTEM PROVIDED HISTORY: Frequent UTI TECHNOLOGIST PROVIDED HISTORY: This procedure can be scheduled via wikifolio. Access your wikifolio account by visiting [employer]. FINDINGS: Kidneys: The right kidney measures 11.1 cm in length and the left kidney measures 11.6 cm in length. Kidneys demonstrate normal cortical echogenicity. No evidence of hydronephrosis or intrarenal stones. Bladder: Unremarkable appearance of the bladder. No significant post void residual. IMPRESSION: Unremarkable ultrasound of the kidneys and urinary bladder. [employer] Work Phone: Formson 68-58-5464Wgkbr [id number]:127NoAdams County Regional Medical CenterAmbulatory Clinical Summaryon 62-61-2291Hbkzybbvoq Clinical Summary {07-gj-ed-he-iz-39-16-70-m5-4u-v0-11-5a-16-ce-86}CD:[id number] Clinic Euclid HospitalGeneral Surgery Office/Clinic Noteon 64-40-1020Rpufbox Surgery Office/Clinic NoteChief Complaint post operative follow up HPI Staff 8 day post operative follow up post lap appendectomy completed while in-patient at [facility]. Doing well. Minimal discomfort. Taking Ibuprofen [...] available Patient Education Exercise to Lose Weight, Okrg-yn-Rbhh Problem List/Past Medical History Ongoing Acute appendicitis [...] Use:., 10/13/2020 Family History Family history is negativeCleveland Clinic Euclid HospitalComment on above: Result Comment: Electronically Signed By: LATANYA MCKENNA, Sushant Babb\Date and Time Signed: 10/13/20 13:39 EDTPatient Educationon 62-31-0369Cxfkhmt Education Exercise to Lose Weight Exercise and [...] Document Reviewed: 08/12/2011 ExitCare? Patient Information ?2013 [employer].[facility] Euclid HospitalProvider Letter FTon [phone] Letter [facility] October 13, 2020 [facility] VER[facility] [address] [facility] [address] [place] [address] VINNY VERMA 2000 To Whom It May Concern, Please excuse above patient from work 10/14/20. Sincerely, Dr. Sushant Lott MD General SurgeryNormHighland District HospitalPathology Noteon 10-08-2020 Pathology [id number]#1.00CD:127C[facility] Clinic Euclid HospitalFacesheeton 05-29-7959Wghgghpbp [id number]:[address] [place], [place] [address]Operative Reporton 18-01-9028Vjcaayxjt Report [id number]#1.00CD:[address] [place], [place] [address]HIV Screenon 25-70-5877YMU Ag/AbNONREACTIVENONREACTIVEMer Health- [place], [place] Comment on above:No laboratory evidence of HIV infection. If acute HIV infection is suspected, consider testing for HIV-1 RNA. Basic Metabolic Panelon 92-57-8612Kevsn gap [Moles/Vol]11 mmol/L9 - 17 mmol/L [facility]- [place], KYBun/Cre Alinj87[facility]mpvx [facility]- [place], KYCalcium [Mass/Vol]9.3 mg/dL8.6 - 10.4 [...] mg/dL6 - 20 mg/dLMercy Health- [place], KYCBCon 78-15-8155Wjgsignwjsb distribution width (RBC) [Ratio]11.7 %Low11.8 - 14.4 %[place], [place] Hematocrit (Bld) [Volume fraction]36.4 %36.3 - 47.1 %[place] Hemoglobin (Bld) [Mass/Vol]12.2 g/dL11.9 - 15.1 g/dL[place], [place] Interpretation and review of laboratory resultsAbnormalTriHealth Bethesda North HospitalH (RBC) [Entitic mass]31.4 pg25.2 - 33.5 pgPar[place], KYMCHC (RBC) [Mass/Vol]33.5 g/dL28.4 - 34.8 g/dLPar[place], KYMCV (RBC) [Entitic vol] 93.8 fL82.6 - 102.9 fLPar[place], KYPlatelet mean volume (Bld) [Entitic vol]9.2 fL8.1 - 13.5 fLPar[place], KYPlatelets (Bld) [#/Vol]307 10*3/uL [place], KYRBC (Bld) [#/Vol]3.88 10*6/uLLow3.95 - 5.11 m/[place], KYWBC (Bld) [#/Vol]7.2 10*3/uL[place], KYWBC (Bld) [#/Vol] 0.0 10*3/uL0.0 per 100 WBCParks, KYMetabolic Panelon 05-04-2020 GFR/1.73 sq M predicted among non-blacks MDRD (S/P/Bld) [Vol rate/Area][place], KYComment on above:Stage 1: Some kidney damage [...] body mass. Additional eGFR calculator available at: http://www.[employer]/multiple_crcl_2012.htm Roxie 65-26-6536GQX Qn2.22 m[IU]/[facility]- [place], [place] Vital Signs Date TimeVital SignValuePerforming XjmbajbqdOoutkqrj19-77-5032 13:22-0500Body mass index (BMI) [Ratio]38.38 kg/a9Jraza Law DO Work Phone: [phone] [place], [place] [address]Jkdcdnaayt60-78-8965 13:22-0500Body rxxxlu394.86 kgCorey Law DO Work Phone: [phone] [place], [place] [address]Vjvpjivfuy55-40-6035 13:22-0500Diastolic blood jmzkdhyi92 mm[Hg]Mukul Law DO Work Phone: [phone] [place], [place] [address]Iwissdyvts91-14-8437 13:22-0500Systolic blood mm[Hg]Mukul Law DO Work Phone: [phone])[facility] [place], [place] [address]Qsuuzperep23-42-0698 14:52-0500Body mass index (BMI) [Ratio]38.38 kg/m2Amy Oralia PA Work Phone: [phone] [place], [place] [address]Xextusjayk89-63-6249 14:52-0500Body .86 kgAmy Oralia PA Work Phone: [phone] CenterBxdrtncvii61-47-7428 14:52-0500Diastolic blood aupfrtty07 mm[Hg]Regina Barton PA Work Phone: [phone] [place], [place] [address]Ghfwsssntn13-03-7466 14:52-0500Systolic blood lxgtotlk289 mm[Hg]Regina Caiey PA Work Phone: [phone]10-22-2025 15:05-0400Body mass index (BMI) [Ratio]37.47 kg/f2Tzrwg Law DO Work Phone: [phone] [place], [place] [address]Rwybickgwx04-03-3786 15:05-0400Body wybppj408.29 kgCorey Law DO Work Phone: [phone] [place], [place] [address]Jglbmgmmwb54-19-1296 15:05-0400Diastolic blood xzvxusxd64 mm[Hg]Mukul Law DO Work Phone: [phone] [place], [place] [address]Fyjvsnlltn64-00-8116 15:05-0400Systolic blood ipowrsjt665 mm[Hg]Mukul Law DO Work Phone: [phone] [place], [place] [address]Bfotxseaxm56-03-7141 15:11-0400Body mass index (BMI) [Ratio]36.7 kg/v8Dgidmcgd Guillermo DIRECTOR AMBULATORY Work Phone: [phone] [place], [place] [address]Uwxbvnbhos15-14-1076 15:11-0400Body jawjdt024.15 kgCeasar Millererly DIRECTOR AMBULATORY Work Phone: [phone] [place], [place] [address]Sqnvacwbze92-78-5155 15:11-0400Diastolic blood lwqzkaed69 mm[Hg]Ceasar Millererly DIRECTOR AMBULATORY Work Phone: [phone] [place], [place] [address]Alnrjbvlgs25-72-6117 15:11-0400Systolic blood qvnbqahj159 mm[Hg]Ceasardaly Millererly DIRECTOR AMBULATORY Work Phone: [phone] [place], [place] [address]Bzzhbigkrm87-11-5673 15:50-0400Body mass index (BMI) [Ratio]36.64 kg/m2Amy Scranton PA Work Phone: [phone] [place], [place] [address]Ppigxnslpn36-46-0786 15:50-0400Body .97 kgAmy Scranton PA Work Phone: [phone] [place], [place] [address]Ipxlsvvrmn73-46-4228 15:50-0400Diastolic blood mm[Hg]Regina Oralia PA Work Phone: [phone] [place] [address]-22-2025 15:50-0400Systolic blood woswqymk448 mm[Hg]Regina Scranton PA Work Phone: [phone] [place], [place] [address]Pwvolunrjg24-80-9222 15:44-0400Body mass index (BMI) [Ratio]36.61 kg/m2Amy Scranton PA Work Phone: [phone] [place], [place] [address]Xjxztcxipw69-19-9310 15:44-0400Body .88 kgAmy Scranton PA Work Phone: [phone] [place] [address]-11-2025 15:44-0400Diastolic blood meuexvga27 mm[Hg]Regina RUIZ Work Phone: [facility] CenterUusxrvyqmk07-30-0249 15:44-0400Systolic blood lizlrill680 mm[Hg]Regina RUIZ Work Phone: [phone] [place], [place] [address]Yccghlynet76-00-2164 16:08-0400Body mass index (BMI) [Ratio]36.12 kg/d1Ytxeb Law DO Work Phone: [phone])197-[address] [place], [place] [address]Ntverjzuvi09-42-5663 16:08-0400Body nduinq623.52 kgCorey Law DO Work Phone: [phone] [place], [place] [address]Ihsfwdnndb70-48-9227 16:08-0400Diastolic blood hvpmetnr86 mm[Hg]Mukul Law DO Work Phone: [phone])387-[address] [place], [place] [address]Fihcwjrmms14-25-7965 16:08-0400Systolic blood xnvtmekz732 mm[Hg]Mukul Law DO Work Phone: [phone] [place], [place] [address]Nnyugvseov59-15-9278 15:58-0400Body mass index (BMI) [Ratio]35.96 kg/m1Wtqfn Law DO Work Phone: [phone])248-[address] [place], [place] [address]Mvjcwjlgrj05-38-3061 15:58-0400Body ynmzqu062.06 kgCorey Law DO Work Phone: [facility] CenterPatvlddrut93-63-8192 15:58-0400Diastolic blood bbrebtds38 mm[Hg]Mukul Law DO Work Phone: [phone] [place], [place] [address]Khkjfzyjyi15-41-4895 15:58-0400Systolic blood gdityyoh248 mm[Hg]Mukul Law DO Work Phone: [phone] [place], [place] [address]Nnjzhsdoja02-98-9369 14:06-0400Body mass index (BMI) [Ratio]34.99 kg/w8Ahfnv Law DO Work Phone: [phone] [place], [place] [address]Jvijdrbcnx64-09-1227 14:06-0400Body yisase18.34 kgCorey Law DO Work Phone: [phone])925-[address] [place], [place] [address]Zclivrxdmv43-23-1615 14:06-0400Diastolic blood fazbgcjr10 mm[Hg]Mukul Law DO Work Phone: [phone] [place], [place] [address]Ydzvxvaecu63-95-5003 14:06-0400Systolic blood mpsvjjai608 mm[Hg]Mukul Law DO Work Phone: 1(016)[facility] [place], [place] [address]Frrahbrshs45-06-8806 16:41-0400Body mass index (BMI) [Ratio]34.19 kg/q5Pohby Law DO Work Phone: 1(419)[facility] [place], [place] [address]Ubexhmstcy14-83-2162 16:41-0400Body uzvjua46.07 kgCorey Law DO Work Phone: 1(060)[facility] [place], [place] [address]Brxzfdgsgh66-92-4675 16:41-0400Diastolic blood ifwqpjlm26 mm[Hg]Mukul Law DO Work Phone: [phone] [place], [place] [address]Lzrgvktedy84-26-4289 16:41-0400Systolic blood rsqjjqov930 mm[Hg]Mukul Law DO Work Phone: [phone] [place], [place] [address]5-28-2025 16:15-0400Body mass index (BMI) [Ratio]34.22 kg/d2Uozry Law DO Work Phone: 1(946)[facility] [place], [place] [address]Gnndtwpksu38-47-4798 16:15-0400Body hhmyvt41.16 kgCorey Law DO Work Phone: 1(632)[facility] [place], [place] [address]Xokinoqkkq50-98-6058 16:15-0400Diastolic blood xzrbtlor17 mm[Hg]Mukul Law DO Work Phone: [phone])[address] [place], [place] [address]5-28-2025 16:15-0400Systolic blood cjhsugea143 mm[Hg]Mukul Law DO Work Phone: [phone] [place], [place] [address]Hatmbbtaik29-26-4736 15:15-0400Body mass index (BMI) [Ratio]33.57 kg/m2[facility]04-24-2025 15:15-0400Body owuwyb96.35 kgGeneral [facility]04-24-2025 15:15-0400Diastolic blood mudycgna00 mm[Hg][facility]04-24-2025 15:15-0400Systolic blood xpirpkjh254 mm[Hg][facility]12-23-2024 16:25-0500Body mass index (BMI) [Ratio]32.93 kg/s1Stfik Law DO Work Phone: [facility] CenterYpzethlugv87-33-6135 16:25-0500Body .53 kgCorey Law DO Work Phone: [facility] CenterIrpnzhpssa10-32-8949 03:06-0500Body pejgkq85.8024 kgDR MUKUL FOY .[facility] HospitalComment on above:Performed By: #### AFPMAT #### [facility] [address] [place] [address] Dr. Emilee Springer Encounters Encounter DateEncounter TypeCare ProviderFacilityStart: 06-02-2025 End: 86-32-0193Urmgxxfc flow sheetCorey Law DO Work Phone: noP[facility] Centerue OBGYNComment on above:37 weeks gestation of ([facility]); Third trimester ([facility]); Insulin controlled gestational diabetes mellitus (GDM) during , antepartum ([facility]); Gestational diabetes mellitus (GDM), antepartum, gestational diabetes method of control unspecified([facility])Start: 06-02-2025 End: 25-50-7005niyjhwtqpmLEPNK FAZIONot AvailableStart: 05-29-2025 End: 26-68-8301Jrsaaawxk Result EncounterCorey Law DO Work Phone: noHyasynth Bio External Department UnsolicitedStart: 05-29-2025 End: 12-35-7717Lxnaqkmkf Result EncounterCorey Law DO Work Phone: noms External Department UnsolicitedStart: 05-28-2025 End: 58-23-5580Nwvpghxk flow sheetRegina RUIZ Work Phone: noms Heri OBGYNComment on above:Third trimester ([facility]); 36 weeks gestation of ([facility])Start: 05-28-2025 End: 70-70-7033gipuelalldIVX ORALIAEfrain AvailableStart: 05-28-2025 End: 60-14-4832Nlwpyaxli Result EncounterAmy Oralia PA Work Phone: noms External Department UnsolicitedStart: 05-28-2025 End: 55-91-3438Uumkagmim Result EncounterRegina Caitisha RUIZ Work Phone: noms External Department UnsolicitedStart: 05-21-2025 End: 42-55-8197Koprkdxif Result EncounterCorey Law DO Work Phone: noms External Department UnsolicitedStart: 05-21-2025 End: 79-32-9215Xhqxkuojp Result EncounterCorey Law DO Work Phone: noms External Department UnsolicitedStart: 05-14-2025 End: 50-87-0242sdkgkztfnlJFBRN FAZIONot AvailableStart: 05-14-2025 End: 12-29-0752Etotrtaq flow sheetCorey Law DO Work Phone: NOPV [place] OBGYNComment on above:Third trimester ([facility]); 34 weeks gestation of ([facility]); Insulin controlled gestational diabetes mellitus (GDM) during , antepartum ([facility]); Gestational diabetes mellitus (GDM), antepartum, gestational diabetes method of control unspecified([facility]Start: 05-14-2025 End: 19-95-6808Rvgbht flowsheetCorey Law DO Work Phone: NOMS [place] OBGYNStart: 05-14-2025 End: 86-40-6374Jalcwb flowsheetCorey Law DO Work Phone: noMS [place] OBGYNStart: 05-14-2025 End: 14-13-8898Mtcnnnjkv Result EncounterCorey Law DO Work Phone: noms External Department UnsolicitedStart: 05-12-2025 End: 08-11-2424Ocmemwije Result EncounterCorey Law DO Work Phone: NOVX External Department UnsolicitedStart: 05-12-2025 End: 55-25-8672Vmplrdnpl Result EncounterCorey Law DO Work Phone: NOQA External Department UnsolicitedStart: 05-08-2025 End: 10-34-4015Bgzzjtbku Result EncounterCorey Law DO Work Phone: NOCF External Department UnsolicitedStart: 05-08-2025 End: 49-72-6569Ootrazxqz Result EncounterCorey Law DO Work Phone: NOCI External Department UnsolicitedStart: 04-30-2025 End: 93-25-5002qxujpoqkrdIIYHDQEL EBERLYNot AvailableStart: 04-30-2025 End: 73-41-7321Csdxqfdy flow sheetCeasar Li NP Work Phone: [facility] [place] OBGYNComment on above:Third trimester ([facility]); 32 weeks gestation of ([facility])Start: 04-30-2025 End: 74-30-0920Hyrsey flowsheetCeasar Li NP Work Phone: [facility] [place] OBGYNStart: 04-30-2025 End: 84-30-8009Bnnreq flowsheetCeasar Li DIRECTOR AMBULATORY Work Phone: [facility] [place] OBGYNStart: 04-30-2025 End: 84-29-4630Favulixve Result EncounterCorey Law DO Work Phone: NOMS External Department UnsolicitedStart: 04-14-2025 End: 00-81-0866gywfrhfdbmDLF RAMEYNot AvailableStart: 04-14-2025 End: 08-36-4505Edfdllnd flow sheetRegina RUIZ Work Phone: NOMS Heri OBGYNComment on above:Third trimester ([facility]); 30 weeks gestation of ([facility])Start: 04-14-2025 End: 54-77-1577Ymhkcc Darek RUIZ Work Phone: [facility] [place] OBGYNStart: 04-14-2025 End: 91-08-0588Alcinq Darek RUIZ Work Phone: [facility] [place] OBGYNStart: 04-05-2025 End: 24-95-5648Sdjydacku Result EncounterRegina RUIZ Work Phone: NO External Department UnsolicitedStart: 04-05-2025 End: 45-72-6796Vopkwddjb Result EncounterRegina RUIZ Work Phone: no External Department UnsolicitedStart: 04-03-2025 End: 51-37-8842qvbojodvtoSFZ Lesa AvailableStart: 04-03-2025 End: 82-23-7830Irehqlou flow Chuy RUIZ Work Phone: [facility] [place] OBGYNComment on above:28 weeks gestation of ([facility]); Third trimester ([facility]); Dizziness; Gestational diabetes mellitus (GDM), antepartum, gestational diabetes method of control unspecified([facility]); History of miscarriage; Anemia, unspecified type; UTI symptomsStart: 04-03-2025 End: 85-23-2376Uwsebz Darek RUIZ Work Phone: [facility] [place] OBGYNStart: 04-03-2025 End: 01-34-7156Wjchdk Darek RUIZ Work Phone: [facility] [place] OBGYNStart: 03-12-2025 End: 65-24-0186rnfbehrtxeCHEUG FAZIONot AvailableStart: 03-12-2025 End: 20-67-8367Snewozvi flow sheetCorey Law DO Work Phone: [facility] [place] OBGYNComment on above:25 weeks gestation of ([facility]); Second trimester ([facility]); Gastroesophageal reflux disease without esophagitisStart: 03-12-2025 End: 90-68-1023Wgyddj flowsheetCorey Law DO Work Phone: [facility] OBGYNStart: 03-12-2025 End: 34-70-4981Dwkwed flowsheetCorey Law DO Work Phone: [facility] [place] OBGYNStart: 02-26-2025 End: 30-05-2129ualsgavfikEEHQD FAZIONot AvailableStart: 02-26-2025 End: 26-82-7353Thdofquz flow sheetCorey Law DO Work Phone: NOM[facility] Heri OBGYNComment on above:23 weeks gestation of ([facility]); Elevated blood sugar level; Gastroesophageal reflux disease without esophagitisStart: 02-26-2025 End: 61-25-1056Dqeqmt flowsheetCorey Law DO Work Phone: [facility] OBGYNStart: 02-26-2025 End: 62-74-5425Xgdscx flowsheetCorey Law DO Work Phone: noMS [place] OBGYNStart: 02-11-2025 End: 33-00-4895Haqiqims flow sheetCorey Law DO Work Phone: NOMS BCP OBComment on above:Second trimester ([facility]); 20 weeks gestation of ([facility])Start: 02-11-2025 End: 71-44-5447qmavtscdmpHDJVN FAZIONot AvailableStart: 01-15-2025 End: 70-00-7660txdqdaphgpLKZCL FAZIONot AvailableStart: 01-15-2025 End: 36-13-2284Zaoqomtz flow sheetCorey Law DO Work Phone: NOMS BCP OBComment on above:Second trimester ([facility]); 17 weeks gestation of ([facility]); Vaginal discharge; STD exposure; Screening, , for anatomic survey ([facility]); Gastroesophageal reflux in ([facility]); Gestational diabetes mellitus (GDM), antepartum, gestational diabetes method of control unspecified([facility])Start: 01-15-2025 End: 83-65-7145Gvrlsp flowsheetCorey Law DO Work Phone: noMS BCP OBStart: 01-15-2025 End: 23-55-5959Notmsr flowsheetCorey Law DO Work Phone: noms BCP OBStart: 01-15-2025 End: 47-34-2263Dbkzkkjd Result EncounterAmy Oralia RUIZ Work Phone: noMS External Department UnsolicitedStart: 01-07-2025 End: 09-04-5181pqfsmshadyLWXQAOShanda Lamas [facility] HospitalStart: 01-07-2025 End: 62-12-1639Mtwxofesbh hospital visit by Kayden Steele CNP Work Phone: [facility] LABStart: 12-23-2024 End: 24-33-2374Qeqijeyjj Result EncounterCorey Law DO Work Phone: noMS External Department UnsolicitedStart: 12-23-2024 End: 82-61-2645Uingpgatp Result EncounterCorey Law DO Work Phone: noms External Department UnsolicitedStart: 12-20-2024 End: 11-10-9520nsdfoncqhzIUCWTNHallie Lamas [facility] HospitalStart: 12-20-2024 End: 56-71-6366Egsifdfthy hospital visit by [facility] UltrasoundComment on above:Subchorionic hematoma, antepartum, first trimester, not applicable or unspecified fetusStart: 12-18-2024 End: 94-47-9053ghzflyftzzRBDGH FAZIONot AvailableStart: 12-18-2024 End: 38-59-5187Asdppajc flow sheetCorey Law DO Work Phone: noms BCP OBComment on above:Second trimester ; 12 weeks gestation of ; Subchorionic hematoma in first trimester, single or unspecified fetus; Diabetes mellitus screeningStart: 12-18-2024 End: 21-55-9023Vzaysd flowsheetCorey Law DO Work Phone: noms BCP OBStart: 12-18-2024 End: 66-64-2250Esbngh flowsheetCorey Law DO Work Phone: noms BCP OBStart: 11-14-2024 End: 77-87-3554Kzrqoz outpatient visit 5 minutesNoms Bcp Ob Law NurseNOMS BCP OBComment on above:GA: 5l1oDatpc: 11-14-2024 End: 25-80-3419nvrxpavgvgBAYFD FAZIONot AvailableStart: 07-15-2024 End: 15-74-7658Xhkrsme encounter procedureCorey Law DO Work Phone: NOMS HealthcareStart: 07-15-2024 End: 74-77-9715Oxykxrqu preventive med est patient 18-39 yrsCorey Law DO Work Phone: noms BCP OBComment on above:Well woman exam with routine gynecological examStart: 07-15-2024 End: 38-57-9442nksqcnsbwlXHFZA FAZIONot AvailableStart: 07-15-2024 End: 75-32-1775Fdcsmyzha Result EncounterCorey Law DO Work Phone: noms External Department UnsolicitedStart: 07-15-2024 End: 78-54-8318Icfsoqlsq Result EncounterCorey Law DO Work Phone: noms External Department UnsolicitedStart: 05-20-2024 End: 72-03-5887hzjfzgalocMTGOTQHallie Lamas [facility] HospitalStart: 05-20-2024 End: 03-59-8325Ipaiegsfoq hospital visit by Kayden Steele CNP Work Phone: mthz LaboratoryComment on above:Elevated liver enzymes; Mixed hyperlipidemiaStart: 03-06-2024 End: 31-07-4749vuarocrfyxANEOIUHallie Lamas [facility] HospitalStart: 02-16-2024 End: 58-51-1963wuldbxelopULJWTL M VAUGHNMercy [facility] HospitalStart: 08-06-2023 End: 39-15-4916xkhyuoffeaMzmfbeyo:[facility] HospitalStart: 07-11-2023 End: 45-76-3496cphqpebyuyCMTM [facility] Hospitaltart: 03-20-2023 End: 25-03-7047vgmxntdsdcSWTSN [facility]ruder Hospitaltart: 12-17-2022 End: 29-55-5480gljzyhneknIF MUKUL LAW .Facility:D1Fuueb: 12-12-2022 End: 00-24-6514gigseljpbpUK KYLIE AVILAPAULGage .Facility:C1Zqzbd: 12-10-2022 End: 74-42-9704qftpykqddnGY MUKUL LAW .Facility:B6Ycnqv: 10-31-2022 End: 48-59-7482betupygremWB MUKUL LAW .Facility:T1Bjzjv: 10-22-2022 End: 31-43-4920trqibodmxtQSV ORALIA .Facility:R4Dwtxj: 10-15-2022 End: 86-92-1863cosawjeapoLK [place] [employer] .Facility:T8Kkhbl: 09-12-2022 End: 96-90-8958lsefopcyjbRD [employer] [employer] .Facility:Q2Lswjt: 09-10-2022 End: 85-03-6053rkqdmdqlpxFX [employer] .Facility:A7Nxcca: 08-29-2022 End: 35-96-6912kwqxwvtxwlEY [place] .Facility:D3Xtlkh: 08-01-2022 End: 90-89-9229Sytyyvpjpk [facility] LaboratoryStart: 07-04-2022 End: 18-93-2396gwcohkbmjhWL [place] [employer] .Facility:U3Mcwws: 06-23-2022 End: 35-93-3791siyxekecarXL YELENA Calicility:T1Mijww: 06-09-2022 End: 99-68-1087xopapzczyxXT [place] [employer] .Facility:S2Akgbs: 06-02-2022 End: 58-45-7089Krslrgtiks hospital visit by Kayden Steele CNP Work Phone: [email or web address] LaboratoryStart: 04-18-2022 End: 09-98-0466vahgmjxzmfKL MUKUL FOY .Facility:F7Xgycx: 09-23-2021 End: 50-12-0716rbmbpytiknOXZAL CHECO [facility]: 09-08-2021 End: 69-30-4938oynzbvqqylQNTOV R FAZIORiverside Episcopal HospitalStart: 08-25-2021 End: 72-91-6160bwatluhzsgTFBSO R FAZIORiverside Episcopal HospitalStart: 08-19-2021 End: 55-09-7597vhryhdhxvuFJUAB R FAZIORiverside Episcopal HospitalStart: 08-10-2021 End: 32-57-7402Okkdrlkrzb hospital visit by Kayden Rodriguez APRN - REFINISH TECHNICIAN Work Phone: mthz LaboratoryComment on above:AmenorrheaStart: 11-25-2020 End: 50-81-1441Wtgelnhbgm hospital visit by [facility] RadiologyComment on above:Frequent UTIStart: 05-04-2020 End: 64-01-8875Eiowmlrbpq hospital visit by Kayden Chapman LaboratoryComment on above:Encounter for screening for HIV; Other fatigue; Wellness examinationStart: 03-03-2020 End: 75-22-5200Lsrrprwbxp hospital visit by Brayden Dickinson LaboratoryComment on above:Screening for cervical cancer; Encounter for annual routine gynecological examination Procedures DateProcedureProcedure DetailPerforming ClinicianStart: 71-20-9092Toehh dip stick/tablet rgnt non-auto w/o micrscpCorey Law DO Work Phone: Start: 96-08-5708VK OB BPP W NON-STRESSCorey Law DO Work Phone: Start: 01-56-6158Bwbyp dip stick/tablet rgnt non-auto w/o micrscpAmy Oralia RUIZ Work Phone: Start: 65-98-6421JCHWA GP B CULTURE+RFLXAaric RUIZ Work Phone: Start: 23-11-6411IU OB BPP W NON-STRESSCorey Law DO Work Phone: Start: 66-19-9409IK OB BPP W NON-STRESSCorey Law DO Work Phone: Start: 77-88-7663Fixox dip stick/tablet rgnt non-auto w/o micrscpCorey Law DO Work Phone: Start: 72-64-8585LCO UA (CLEAN/CATCH) SINGLE WIRE SAW OPERATOR/MICRO IF IND.Mukul Law DO Work Phone: Start: 81-17-8308YV OB BPP W NON-STRESSCorey Law DO Work Phone: Start: 42-56-3998MB OB BPP W NON-STRESSCorey Law DO Work Phone: Start: 71-59-9163Emyqm dip stick/tablet rgnt non-auto w/o micrscpKristina Guillermo DIRECTOR AMBULATORY Work Phone: Start: 81-21-8911Vtlly dip stick/tablet rgnt non-auto w/o micrscpAaric RUIZ Work Phone: Start: 08-26-1634MN OB GROWTHRegina RUIZ Work Phone: Start: 43-34-3299CNF CBC WITH AUTO DIFFRegina RUIZ Work Phone: Start: 00-23-6833Edgsb dip stick/tablet rgnt non-auto w/o micrscpAmy Oralia RUIZ Work Phone: Start: 87-69-6318Ovfca dip stick/tablet rgnt non-auto w/o micrscpCorey Law DO Work Phone: Start: 15-57-8701Rmoyf dip stick/tablet rgnt non-auto w/o micrscpCorey Law DO Work Phone: Start: 16-46-2401Bngrh dip stick/tablet rgnt non-auto w/o micrscpCorey Law DO Work Phone: Start: 54-13-4981EWYDVTITN VAGINITIS (HTRX)Regina RUIZ Work Phone: Start: 15-12-3484Wcyqg count complete automatedAmy L Oralia CAMPOS Work Phone: Start: 14-98-7108GI OB LESS THAN 14 WEEKS SINGLE OR FIRST GESTATIONCorey Law DO Work Phone: Start: 11-06-1387Ronpb dip stick/tablet rgnt non-auto w/o micrscpCorey Law DO Work Phone: Start: 34-81-0916Zcsap dip stick/tablet rgnt non-auto w/o micrscpCorey Law DO Work Phone: Start: 64-65-7862MVZ,APTIMA HPV,AGE GDLNCorey Law DO Work Phone: Start: 97-22-5598Zstukpzrgab observation [Identifier] in Cervix by Cyto Leonora Rodriguez FURNACE COOLER - REFINISH TECHNICIAN Work Phone: Start: 30-21-6491Bcldu panelYnes Rodriguez FURNACE COOLER - REFINISH TECHNICIAN Work Phone: Start: 53-12-4337Ltlbmpkznzzgb metabolic panelYnes Rodriguez FURNACE COOLER - REFINISH TECHNICIAN Work Phone: Start: 34-41-3542Iehcrxgqoqp observation [Identifier] in Cervix by Cyto Gurjit RoomStart: 29-01-0481Jmefqmwh Navid Barroso FURNACE COOLER - REFINISH TECHNICIAN Work Phone: Start: 64-37-0262Nhdhazjjshtp chorionic quantitative Mukul Bill Foy MD Work Phone: Start: 65-51-4519Vxfysyemsgey chorionic quantitative Berto Checoyves Live FURNACE COOLER - CNM Work Phone: Start: 46-49-7073Er retroperitoneal real time w/image completeLorena Ricks FURNACE COOLER - REFINISH TECHNICIAN Work Phone: Start: 93-13-2426Eeiyfsze hiv-1&hiv-2 single result Ynes Quilesughn Work Phone: Start: 13-79-8151Lervp of thyroid stimulating hormone tshYnes Quilesughn Work Phone: Start: 39-73-2934Uwysd metabolic panel calcium total Ynes Fischern Work Phone: Start: 31-97-4974Sozmb count complete automatedYnes Fischern Work Phone: Start: 29-14-3185Gmnjiitlscg observation [Identifier] in Cervix by Cyto stainHarrycortezgoran Fede FURNACE COOLER - REFINISH TECHNICIAN Work Phone: Plan of Treatment DateCare ActivityDetailAuthorStart: 92-54-6962Qycoemsrb for malignant neoplasm of cervixPap smearBon [facility] HospitalStart: 41-40-2229Yddqejmnt for malignant neoplasm of cervixPap smearBon [facility] HospitalStart: 08-07-2025 Depression ScreenDepression ScreenStonesprings Hospital CenterStart: 07-28-2025 End: 39-79-5420Jxpbkox encounter procedureNOMS BCP OBStart: 06-02-2025 End: 70-54-2927Jtuhfxa encounter ptuayuhlk12/10/2025 1:00 PM EST Routine [facility] [address] [place], [id number] Mukul Foy, [address] [place], [place] [id number] [facility] Heri OBGYNStart: 05-28-2025 End: 50-80-2077Auzepct encounter hsrgjqwin57/05/2025 2:30 PM EST Routine [facility] [address] [place], [id number] Regina Barton PA [address] [place] [address] [facility] Heri OBGYNStart: 05-28-2025 End: 20-64-1392VRWAITU, GROUP B STREP WITH SUSCEPTIBLITYCULTURE, GROUP B STREP WITH SUSCEPTIBLITY Lab Routine Third trimester ([facility]) Expected: 05/28/2025, Expires: 05/28/2026[facility] Work Phone: comment on above:Expected: 05/28/2025, Expires: 05/28/2026Start: 05-28-2025 End: 38-97-7335Mrtkcezykebg / ancillary services nfpcjkljgo35/05/2025 2:00 PM EST Ancillary Procedure [facility] SANTO [address] [id number] [phone] Heri OBGYNStart: 33-65-4372Fksgr panelLipids [facility] CenterStart: 05-14-2025 End: 78-96-7198Qwoyejk encounter dnyupbfra13/22/2025 2:50 PM EDT Routine NOMRenzo SANTO [address] [place], [id number] Mukul Foy DO [address] [place] [address] [facility] Heri OBGYNStart: 05-14-2025 End: 42-95-7058RQ for pregnancyUS OB follow up transabdominal approach Imaging Routine Insulin controlled gestational diabetes mellitus (GDM) during , antepartum ([facility]) Expected: 05/14/2025, Expires: 09/14/2025[facility] Work Phone: comment on above:Expected: 05/14/2025, Expires: 09/14/2025Start: 05-14-2025 End: 06-94-9072Sysbrey encounter twnduabra45/22/2025 11:40 AM EDT Office Visit [facility] [address] [place] [address] Ynes Rodriguez, FURNACE COOLER - REFINISH TECHNICIAN [address] [place] [address] 6 month f/[facility] Primary CareComment on above:6 month f/uStart: 04-30-2025 End: 88-53-3388Jchunqe encounter iiljsqmyp33/08/2025 3:00 PM EDT Routine [facility] [address] [place], [id number] Ceasar Li, ASHWIN [address] [place] [address] [facility] Heri OBGYNStart: 04-14-2025 End: 80-27-1684Ygftizm encounter hlhxfmggu43/22/2025 3:20 PM EDT Routine [facility] [address] [place], [id number] Regina Barton PA [address] [place] [address] [facility] Heri OBGYNStart: 04-03-2025 End: 10-00-3719Swnhfnw encounter cvmoupwvr63/11/2025 3:30 PM EDT Routine [facility] [address] [place], [id number] Regnia Barton PA [address] [place] [address] [facility] Heri OBGYNStart: 04-03-2025 End: 60-09-3621KGM W Auto Differential panel - BloodCBC and differential Lab Routine Dizziness Anemia, unspecified type Expected: 04/03/2025 (Approximate), Expires: 04/03/2026N[facility]C HealthcareComment on above:Expected: 04/03/2025 (Approximate), Expires: 04/03/2026Start: 04-03-2025 End: 59-42-8432BI biophysical profile w non stress testUS biophysical profile w non stress test Imaging Routine 28 weeks gestation of ([facility]) Third trimester ([facility]) Gestational diabetes mellitus (GDM), antepartum, gestational diabetes method of control unspecified ([facility] History of miscarriage Expected: 04/03/2025 (Approximate), Expires: 10/01/2025[facility] HealthcareComment on above:Expected: 04/03/2025 (Approximate), Expires: 10/01/2025Start: 04-03-2025 End: 65-52-4870TT for pregnancyUS OB follow up transabdominal approach Imaging Routine 28 weeks gestation of ([facility]) Third trimester ([facility]) Gestational diabetes mellitus (GDM), antepartum, gestational diabetes method of control unspecified ([facility]) History of miscarriage Expected: 04/03/2025, Expires: 08/03/2025[facility] Work Phone: comment on above:Expected: 04/03/2025, Expires: 08/03/2025Start: 47-17-6908GDLEP-19 Vaccine ( season)COVID-19 Vaccine ( season)[facility] HealthcareStart: 38-01-2910Ecckdkmvg vaccinationNOMS HealthcareStart: 07-79-3940Shrcykpwt vaccinationFlu vaccine (Season Ended)[facility] HealthStart: 02-11-2025 End: 46-16-8783Slgwbak encounter rmuxpgclc39/22/2025 2:10 PM EDT Routine [facility] [address] [place] [phone] Mukul Foy, DO [address] [place] [address] [facility] BCP OBStart: 02-11-2025 End: 88-01-5195Xpaugeqxsiro / ancillary services xyeqbfayjw01/22/2025 1:00 PM EDT Ancillary Procedure [facility] [address] [phone] [facility] BCP OBStart: 01-15-2025 End: 28-30-8993Dghdcxd encounter /25/2025 3:50 PM EDT Routine [facility] [address] [phone] Mukul Foy, DO [facility] [place], [place] [id number] [facility] BCP OBStart: 01-15-2025 End: 71-71-3967Iaoxw fetoprotein, maternalAlpha fetoprotein, maternal Lab Routine Second trimester ([facility]) 17 weeks gestation of ([facility]) Expected: 01/15/2025 (Approximate), Expires: 07/17/2025[facility] Comment on above:Expected: 01/15/2025 (Approximate), Expires: 07/17/2025Start: 01-15-2025 End: 79-06-5296IG for pregnancyUS OB 14+ weeks anatomy scan Imaging Routine Screening, , for anatomic survey ([facility]) Expected: 01/15/2025, Expires: 04/17/2025[facility] CenterComment on above:Expected: 01/15/2025, Expires: 04/17/2025Start: 12-18-2024 End: 83-96-5303Bxemddd encounter ofthchcfq72/28/2025 3:40 PM EDT Routine [facility] [address] [place] [phone] Mukul Foy, DO [address] [place], [place] [id number] [facility] BCP OBStart: 12-18-2024 End: 88-68-8415ZSQ panel - Blood by Automated countCBC Lab Routine Diabetes mellitus screening Expected: 12/18/2024 (Approximate), Expires: 12/18/2025[facility] Work Phone: comment on above:Expected: 12/18/2024 (Approximate), Expires: 12/18/2025Start: 12-18-2024 End: 66-53-1352Kjkjybmkqcs of glucose 1 hour after glucose challenge for glucose tolerance testGlucose tolerance, 1 hour Lab Routine Diabetes mellitus screening Expected: 12/18/2024 (Approximate), Expires: 12/18/2025[facility] HealthcareComment on above:Expected: 12/18/2024 (Approximate), Expires: 12/18/2025Start: 12-18-2024 End: 94-97-6316LE Pelvis transvaginalUS OB transvaginal Imaging Routine Subchorionic hematoma in first trimester, single or unspecified fetus Expected: 12/18/2024, Expires: 03/20/2025[facility] Work Phone: comment on above:Expected: 12/18/2024, Expires: 03/20/2025Start: 11-14-2024 End: 06-65-8503CGJ/RhABO/Rh Lab Routine Missed menses , unspecified gestational age Expected: 11/14/2024 (Approximate), Expires: 11/14/2025[facility] HealthcareComment on above:Expected: 11/14/2024 (Approximate), Expires: 11/14/2025Start: 11-14-2024 End: 53-59-2216Xtdjh type and Indirect antibody screen panel - BloodType and screen Lab Routine Missed menses , unspecified gestational age Expected: 11/14/2024 (Approximate), Expires: 11/14/2025[facility] HealthcareComment on above:Expected: 11/14/2024 (Approximate), Expires: 11/14/2025Start: 11-14-2024 End: 19-98-4715Hqruv of abuse panel - Urine by Screen methodRapid drug screen, urine Lab Routine , unspecified gestational age Encounter for supervision of normal first in first trimester Expected: 11/14/2024 (Approximate), Expires: 11/14/2025[facility] HealthcareComment on above:Expected: 11/14/2024 (Approximate), Expires: 11/14/2025Start: 11-06-2024 End: 85-14-2012QO Pelvis transvaginalUS OB transvaginal Imaging Routine Missed menses Expected: 11/06/2024, Expires: 02/05/2025[facility] Work Phone: comment on above:Expected: 11/06/2024, Expires: 02/05/2025Start: 10-16-2024 End: 20-39-6141Hwqpiat encounter ygcyoaaqo32/26/2025 1:40 PM EDT Office Visit [address] [place] [address] Ynes Rodriguez, FURNACE COOLER - REFINISH TECHNICIAN [address] [place] [address] [address] [place] [address] [facility] Primary CareComment on above:WellnessStart: 16-08-8274Hceajtoxjx ScreenDepression ScreenBon Secours Mount St. Mary HospitalStart: 06-04-2024 End: 35-99-6098Xfveysp encounter gzeuowjih03/12/2024 11:45 AM EST Office Visit [address] [place] [address] Jose Cruz Raza MD [address] [place] [address] Dr. [address] [place] [address] [facility] CareComment on above:wt managementStart: 05-22-2024 End: 49-77-5185Kfggqzg encounter kpqlmmhit10/30/2024 11:00 AM EDT Office Visit [address] [place] [address] Ynes Rodriguez, FURNACE COOLER - REFINISH TECHNICIAN [address] [place] [address] [address] [place] [address] LFT + HLD f/u(RS 10/17/23 appt)[facility] Primary CareComment on above:LFT + HLD f/u(RS 10/17/23 appt)Start: 70-38-5578MFGFC-19 Vaccine ( season)COVID-19 Vaccine ( season)[facility] CenterStart: 23-54-4385UBBBW-19 Vaccine ( season)COVID-19 Vaccine ()Bon [facility] HospitalStart: 31-01-4361Zrudmjaqe vaccinationInfluenza Vaccine (#1)[facility] HealthcareStart: 14-70-2059Axpwlcnwe vaccinationFlu vaccine (#1)[facility] CenterStart: 52-54-3873Rhwjjvauc for malignant neoplasm of cervixPike Community Hospital HealthStart: 16-24-7246Polqfmznrl ScreenDepression ScreenBON [facility]OSPITALStart: 07-11-2022 End: 02-18-3025Vibevsb encounter vhfnvvakx64/19/2022 Office Visit Primary Care Ynes Rodriguez, FURNACE COOLER - REFINISH TECHNICIAN [address] [place] [address] [facility] Start: 05-19-2022 End: 88-11-6307Yqkacun encounter xrmhwinpx57/27/2022 Office Visit Obstetrics and Gynecology Berto Live, FURNACE COOLER - CN [address] [place] [address] [facility] OBSTETRICS & [facility]YNECOLOG[facility] Part [facility] HospitalStart: 03-18-2022 End: 33-69-8373Fxohlsp encounter opgljwsvy82/26/2022 Office Visit Family Medicine Ynes Rodriguez FURNACE COOLER - REFINISH TECHNICIAN [address] [place] [address] [facility] FAMILY MEDICINE Part [facility] HospitalStart: 76-62-0270Otdnebrma C screeningHepatitis C screenMercy HealthComment on above:Postponed from 1998 (Patient Refused)Start: 02-30-7149Qstmnrmte vaccinationFlu vaccine (#1)[facility] Hospitalart: 99-00-2784Evmrbkwsb for Chlamydia trachomatisMount St. Mary HospitalStart: 09-24-2021 Influenza vaccinationFlu vaccine (Season Ended)[facility] Work Phone: comment on above:Postponed from 03/24/2021 (Patient Refused)Start: 65-38-3523Vujecyckjr MonitoringDepression [facility] Start: 11-89-2317VLWVJ-19 Vaccine (3 - Booster for Pfizer series)COVID-19 Vaccine (3 - Booster for Pfizer series)[facility] Centerart: 12-38-3666NVdW/Tdap/Td vaccine (7 - Td or Tdap)DTaP/Tdap/Td vaccine (7 - Td or Tdap)[facility] Centerart: 55-71-4198JMdU/Tdap/Td vaccine (7 - Td)DTaP/Tdap/Td vaccine (7 - Td)[facility] Centerart: 08-22-9599Wjsflrblm vaccinationFlu vaccine (#1)[facility] Start: 85-95-9878Xppipfcuy for Chlamydia trachomatisChlamydia screenSumma Health Wadsworth - Rittman Medical Centerart: 33-04-5290AQCRL-19 Vaccine (3 - Booster for Pfizer series) COVID-19 Vaccine (3 - Booster for Pfizer series)[facility]ITALStart: 02-09-2021 End: 61-87-1270Fzflqms encounter chrymhctp06/20/2021 Office Visit Family Medicine Ynes Rodriguez, FURNACE COOLER - REFINISH TECHNICIAN [address] [place] [address] [phone] [facility] FAMILY [facility] Part [place] [facility]art: 11-30-2020 End: 96-11-2626Ccuknze encounter mycbgnsau80/10/2021 Office Visit Urology Chris Moe MD [address] [address] [facility] [address] [place], [place] [phone] [facility] UROLOGY Part [place] [facility]ospicetart: 05-28-2020 End: 69-71-1362Jxrlcxmmgxit51/05/2020 Telemedicine Family Medicine Ynes Rodriguez, FURNACE COOLER - REFINISH TECHNICIAN [address] [place] [address] [phone] [facility] MEDICINE Part of [facility] Start: 47-62-7162Pzpqgnhof vaccinationFlu vaccine (#1)[facility]: 97-78-3628Rxkbgolue for Chlamydia trachomatisChlamydia [facility]: 89-19-0619Bshpgipuk for malignant neoplasm of cervixCervical cancer [facility]: 82-09-5895Jdgaxizdx B Vaccines (1 of 3 - 19+ 3- dose series)Hepatitis B Vaccines (1 of 3 - 19+ 3-dose series)[facility] Start: 86-14-0947Wjopudrfb C screeningHepatitis C screenBON [facility] Start: 02-12-2233POSOO-19 Vaccine (1)COVID-19 Vaccine (1)[facility] Work Phone: start: 41-38-7082VUW screeningHIV [facility]: 84-26-7317HML Vaccines (1 - 3-dose series)HPV Vaccines (1 - 3-dose series)[facility] HealthcareStart: 37-35-8122Sassisr of varicella vaccinationVaricella Vaccines (1 of 2 - 13+ 2-dose series)[facility] HealthcareStart: 2005 DTaP/Tdap/Td Vaccines (1 - Tdap)DTaP/Tdap/Td Vaccines (1 - Tdap)[facility] Start: 53-13-2961NTO Vaccines (1 of 1 - Standard series)MMR Vaccines (1 of 1 - Standard series)[facility] HealthcareStart: 99-53-7734Dlabevsgg C screeningHepatitis C [facility] Phone: bacteria identified in Urine by CultureUrine culture Microbiology Routine Missed menses Ordered: 11/14/2024[facility] HealthcareComment on above:Ordered: 5Bacteria identified in Urine by CultureUrine culture Microbiology Routine UTI symptoms Ordered: 04/03/2025[facility] HealthcareComment on above:Ordered: 04/03/2025 End: 03-03-2020C.trachomatis N.gonorrhoeae DNA, Thin PrepC.trachomatis N.gonorrhoeae DNA, Thin Prep Microbiology Routine Encounter for annual routine gynecological examination 1 Occurrences starting 03/03/2020 until 03/03/2020 [facility], MARIELAComment on above:1 Occurrences starting 03/03/2020 until 03/03/2020C.trachomatis N.gonorrhoeae DNA, Thin PrepC.trachomatis N.gonorrhoeae DNA, Thin Prep Microbiology Routine Encounter for annual routine gynecological examination 03/03/2020 5:08 PM [facility], KYCBC W Auto Differential panel - BloodCBC and differential Lab Routine Missed menses , unspecified gestational age Ordered: 11/14/2024[facility] HealthcareComment on above: Ordered: 5CHLAMYDIA TRACHOMATIS (GENITO/STI)CHLAMYDIA TRACHOMATIS (GENITO/STI) Lab Routine STD exposure Ordered: 01/15/2025[facility] HealthcareComment on above:Ordered: 5Cytology Cervical or vaginal smear or scraping study Pap Smear Pathology and Cytology Routine Well woman exam with routine gynecological exam Ordered: 07/15/2024[facility] Work Phone: comment on above:Ordered: 07/15/2024 End: 13-02-7486Urokpycqhjgwm procedure, preparation of smear, genital sourcePAP SMEAR Lab Routine Screening for cervical cancer 1 Occurrences starting 03/03/2020 until 03/03/2020[facility], MARIELAComment on above:1 Occurrences starting 03/03/2020 until 03/03/2020Hemoglobin A1c/Hemoglobin.total in Blood Hemoglobin A1c Lab Routine Missed menses , unspecified gestational age Ordered: 11/14/2024[facility] HealthcareComment on above:Ordered: 11/14/2024Hepatitis B virus surface Ag [Presence] in Serum or Plasma by ImmunoassayHepatitis B surface antigen Lab Routine Missed menses , unspecified gestational age Ordered: 11/14/2024[facility] HealthcareComment on above:Ordered: 11/14/2024Hepatitis C virus Ab [Presence] in Serum or Plasma by ImmunoassayHepatitis C antibody Lab Routine Missed menses , unspecified gestational age Ordered: 11/14[facility] HealthcareComment on above:Ordered: 11/14/2024HIV-1/HIV-2 antigen/antibody combination immunoassayHIV-1 and HIV-2 antibodies Lab Routine Missed menses , unspecified gestational age Ordered: 11/14/2024[facility] HealthcareComment on above:Ordered: 11/14/2024Neisseria gonorrhoeae DNA [Presence] in Unspecified specimen by ANISA with probe detectionNeisseria gonorrhea DNA probe, direct Lab Routine STD exposure Ordered: 01/15/2025[facility] HealthcareComment on above:Ordered: 01/15/2025Reagin Ab [Presence] in Serum by RPRRPR Lab Routine Missed menses , unspecified gestational age Ordered: 11/14/2024[facility] HealthcareComment on above:Ordered: 11/14/2024Rubella antibody, IgGRubella antibody, IgG Lab Routine Missed menses , unspecified gestational age Ordered: 11/14/2024[facility] HealthcareComment on above:Ordered: 11/14/2024SURESWAB(R) ADVANCED VAGINITIS PLUS, TMASURESWAB(R) ADVANCED VAGINITIS PLUS, TMA Pathology and Cytology Routine Vaginal discharge Ordered: 01/15/2025 [facility] Work Phone: comment on above:Ordered: 01/15/2025US Pelvis transvaginalUS OB transvaginal Imaging Routine Missed menses 11/14/2024 2:38 PM [facility] End: 51-72-2853Zr uterus 14 wk transabdl 07/24 [facility] Work Phone: Comment on above:1 Occurrences starting 12/20/2024 until 12/20/2024 Immunizations Immunization DateImmunizationNotesCare NzmhqutdBgghcvjy74-05-3320CRQMF-72, Pfizer Purple top, DILUTE for use, 12+ yrs, 30mcg/0.3mL doseHannah Rodriguez FURNACE COOLER - [facility] Work Phone: [facility] Work Phone: [phone]-36, Pfizer Purple top, DILUTE for use, 12+ yrs, 30mcg/0.3mL doseHannah Rodriguez FURNACE COOLER [facility] Work Phone: [facility] HospitalYtlwsu22-41-6386xtcmd papilloma virus vaccine, quadrivalentC[facility], DH57-40-0645aeltt papilloma virus vaccine, quadrivalentC[facility] Clinic [facility], XC30-53-8230ngbbx papilloma virus vaccine, quadrivalentC[facility] Clinic [facility], [place] 74-93-6906hufrlphtuhwcs polysaccharide (groups A, C, Y and W-135) diphtheria toxoid conjugate vaccine (MCV4P)[facility], PL26-18-2224 meningococcal ACWY vaccine, unspecified formulationC[facility] Clinic [facility], IJ04-71-9388Zwiizskwe A Ped/Adol (Vaqta)[facility], [place] 09-95-3585zlfvydgdi A vaccine, pediatric/adolescent dosage, 2 dose schedule Ynes Rodriguez FURNACE COOLER [facility] Work Phone: [facility] Work Phone: [phone] toxoid, reduced diphtheria toxoid, and acellular pertussis vaccine, adsorbedC[facility] Clinic [facility], [place] 65-93-3655Kuvmhnyrg A Ped/Adol (Vaqta)[facility], [place] 23-24-1955xswznchgh A vaccine, pediatric/adolescent dosage, 2 dose schedule Ynes Rodriguez [facility] Work Phone: [facility] Work Phone: [phone] virus vaccineC[facility], GG84-21-4403lzrbfokyznvqv polysaccharide (groups A, C, Y and W-135) diphtheria toxoid conjugate vaccine (MCV4P)[facility], [place] 76-48-8455nzspygggih, tetanus toxoids and acellular pertussis vaccineC[facility], QK28-61-9201jxbpfps, mumps and rubella virus vaccine [facility], QG54-88-6761itzdbkrmby vaccine, inactivated [facility] [facility], [id number], tetanus toxoids and acellular pertussis vaccineC[facility], CA45-00-7713 haemophilus influenzae type b vaccine, PRP-T conjugateCleveland Clinic [facility], [id number] vaccine, inactivatedC[facility] Clinic [facility], HY48-08-7022wagwkpf, mumps and rubella virus vaccineSelect [facility], [id number] virus vaccineC[facility] Clinic [facility], [id number] B vaccine, pediatric or pediatric/adolescent dosageCleveland Clinic [facility], [id number], tetanus toxoids and acellular pertussis vaccineC[facility], OJ94-15-9218 haemophilus influenzae type b vaccine, PRP-T conjugate[facility], GW62-19-2626mbhhlkoftl, tetanus toxoids and acellular pertussis vaccineC[facility], WE51-02-5478xomzsqatijl influenzae type b vaccine, PRP-T conjugate[facility], EP35-11-2667 poliovirus vaccine, inactivatedC[facility], VP47-85-8238 haemophilus influenzae type b vaccine, PRP-T conjugateC[facility], TM33-10-3359jzdrarbavk vaccine, inactivatedC[facility], ON50-48-3083fhlqtpcqpv, tetanus toxoids and acellular pertussis vaccineUniversity Hospitals [facility]03-18-1999hepatitis B vaccine, pediatric or pediatric/adolescent dosageC[facility] Clinic [facility], [id number] hepatitis B vaccine, pediatric or pediatric/adolescent dosageSelect [facility] [place], [place] Payers DatePayer CategoryPayerPolic [id number] SPECIALTY BILLING [facility] [id number] 2022-Present [address] [facility] [place] [address] [id number]14Muhcfzt Health InsuranceGUERNSEY MEMORIAL HOSPITALCAL MUTUAL Member Subscriber Plan / Payer (Effective 2022-Present) Name: GrantVinny witt Relation to Subscriber: Spouse Name: Abhishek Downey Date of : 1998 Address: [address] [place] [address] Payer ID: Not on file Type: Not on file Address: [address] [id number]zwf [id number] 2..1.462867.3.57[id number] 2..1.366203.3.57[id number] 2..1.172883.3.57[id number] 2..1.599244.3.57[id number] 2..1.801303.3.57[id number] 2.0.1.130113.3.57[id number] 2..1.471655.3.57[id number] 2.0.1.453765.3.579.2.41950-95-0284Zrbuytu4637491 2.16.840.1.531777.3.579.2.07399-12-8064Bbqmzpk1225617 2.16.840.1.841301.3.57[id number] 2.16.840.1.871933.3.579.2.80951-55-7009Kizfnis0338901 2.16.840.1.853939.3.579.2.69759-40-3482Dhnpyrt1294511 2.16.840.1.769078.3.57[id number] 2.16.840.1.171536.3.579.2.12040-02-5012Acwnodj9692545 2.16.840.1.126451.3.579.2.29821-98-0279Cgtapxf3483596 2.840.1.626746.3.579.2.24726-04-6124Gsbcetn5450987 2.16.840.1.885799.3.579.2.12648-65-4660Ngniydk6391430 2..840.1.194636.3.579.[id number] 2.16.840.1.240681.3.579.2.[id number] 2.840.1.307370.3.57[id number] 2.16.840.1.857579.3.579.2.[id number] 2.16840.1.701471.3.579.2.20292-05-6148Oighjlw63443284 2.16.840.1.280469.3.579.2.35132-07-1030Irahbqo56044767 2.16.840.1.674875.3.579.2.439658-66-5239Lqzufrk74134747 2.16.840.1.031538.3.579.2.[id number] 2.16.840.1.518056.3.57[id number] 2.16840.1.231964.3.579.2.267342-20-1743Dyggmot04701057 2.16.840.1.820734.3.579.2.4[id number] 2.840.1.883249.3.57[id number] 2.840.1.939135.3.579.2.2[id number] 2.840.1.668781.3.579.2.835088-34-4336Muzvazg37149204 2.840.1.681445.3.579.2.867390-05-7745Hadoqwi90282329 2.840.1.189621.3.579.2.182043-67-9763Ljoisov01392334 2.840.1.219521.3.579.2.062489-67-7863Rclhwwd24905637 2.840.1.360840.3.579.2.353658-97-5348Qdrrjzz1337075 2.840.1.968318.3.579.2.890606-13-6399Pjeolmc9969702 2.16840.1.105442.3.579.2.546447-82-5835Pcaqwws8217712 2.840.1.841839.3.579.2.338589-92-1869Ingquvs8674067 2.16.840.1.510094.3.579.2.848234-23-0884Ksxf-pcx21-76-2177RaijaszUUPHZ9746770 1.2.840.095897.1.13.239.2.7.3.506887.96277-64-8731Mqgpdbh01805901817297-46-0371 [id number] 2.16.840.1.351127.3.579.2.593 Social History DateTypeDetailFacilityStart: 03-03-2020 End: 71-23-7041Clgxjqk smoking status NHISNever smokerThe [facility]: [facility]-2020 End: 00-08-5261Weiusqb use and exposureNever usedThe [facility] Hospital: 03-03-2020 End: 08-74-2103Fvsaqlg intakeCurrent drinker of alcohol (finding)[facility]: 98-92-7146Tzzwhyk CommentsRed[employer] LLC: 22-95-0640Wba Assigned At BirthNot on [facility]: 05-01-2020 End: 15-37-4994Wriqxcj SDOH Sqiljikyp3VmyusThe Christ Hospital: 05-01-2020 End: 65-45-4196Wzehggd SDOH Food Yfzre1DfookThe [facility]: 05-01-2020 History SDOH Transport [place]qy1VcnwbParks, [place]Exposure to SARS-CoV-2 (event)Not sureParma [facility]: 05-01-2024 End: 69-61-0522Hohhggucf beverage intakeEx-drinker (finding)[facility]: 05-01-2024 End: 13-01-3940Nzudbnw of Social functionBon [facility] Health System: 05-01-2024 End: 03-82-3353Kzyrrda use panelBon [facility] Health System: 47-05-7108Wyz hard is it for you to pay for the very basics like food, housing, medical care, and heatingNot hard at allHonorhealth [facility] [employer](I/We) worried whether (my/our) food would run out before (I/we) got money to buy more.Never trueBon Northwest Medical CenterHailo [facility] CenterStart: 75-68-0100Cdl assigned at birthFemaleBon Northwest Medical CenterHailo [facility] CenterStart: 65-37-0182Qaeudc identityIdentifies as female gender (finding)[facility] tweetTV [facility] CenterStart: 07-05-2023 End: 10-39-7321Divosoono beverage intakeLifetime non-drinker (finding)[facility] HealthcareStart: 06-06-6404JylkmqwluQNBQ HealthcareHas the electric, gas, oil, or water company threatened to shut off services in your home in past 12MoNoBon Northwest Medical CenterHailo [facility] CenterStart: 86-29-7396KyrUatbuj (finding)[facility] [employer] Medical Equipment Procedure CodeEquipment CodeEquipment Original TextEquipment IdentifierDatesUse as [id number]: 01-15-2025 End: 46-83-0524Bcinry 1 each under the skin [id number]: 04-07-2025 End: 07-16-2025 Goals DatePatient GoalDesired Activity/StatePersonal health goal Clinical Notes 03-20-2023 to 06-02-2025 Note Date & ZuzsRmytTupprjye16-84-6698 History of Present illness Narrative* Mukul Foy, [...] 11/30/2020 23 weeks gestation of ([facility]) 02/26/2025 Elevated blood sugar level 02/26/2025 Resolved Ambulatory Problems Diagnosis Date Noted Missed period 01/13/2023 Past Medical History: Diagnosis Date GDM (gestational diabetes mellitus) ([facility]) Family History[1] Social History Tobacco Use [...] note reviewed. Exam conducted with a quality review trainer present. Vitals: Estimated body mass index is 38.38 kg/m as calculated from the following: Height as of 01/30/23: 5' 6 . Weight as of this encounter: 237 lb 12.8 oz. BP: 138/80 Patient's last menstrual period was 09/16/2024. Assessment/Plan Encounter Diagnosis: ICD-10-CM 1. 37 weeks gestation of ([facility]) Z3A.37 POCT urinalysis dipstick manually resulted 2. Third trimester ([facility]) Z34.93 POCT urinalysis dipstick manually resulted 3. Insulin controlled gestational diabetes mellitus (GDM) during , antepartum ([facility]) O24.414 4. Gestational diabetes mellitus (GDM), antepartum, gestational diabetes method of control unspecified ([facility]) O24.419 insulin glargine (Lantus SoloStar) 100 UNIT/ML [...] [3] No Known Allergies documented in this encounterKansas City VA Medical CenterAaolwedgwx95-39-3899 History of Present illness Narrative* JOSEPH Bowie [...] 11/30/2020 23 weeks gestation of ([facility]) 02/26/2025 Elevated blood sugar level [...] note reviewed. Exam conducted with a quality review trainer present. Vitals: Estimated body mass index is 38.38 kg/m as calculated from the following: Height as of 01/30/23: 5' 6 . Weight as of this encounter: 237 lb 12.8 oz. BP: 120/80 Patient's last menstrual period was 09/16/2024. Assessment/Plan ICD-10-CM 1. Third trimester ([facility]) Z34.93 CULTURE, GROUP B STREP WITH SUSCEPTIBLITY CULTURE, GROUP B STREP WITH SUSCEPTIBLITY 2. 36 weeks gestation of ([facility]) Z3A.36 POCT urinalysis dipstick manually resulted [...] behalf of: JOSEPH Bowie documented in this encounterKansas City VA Medical CenterOugclqampx52-27-3878 History of Present illness Narrative* Criselda Aguirre [...] Frequent UTI 11/30/2020 23 weeks gestation of ([facility]) 02/26/2025 Elevated blood sugar level 02/26/2025 Resolved [...] note reviewed. Exam conducted with a quality review trainer present. Vitals: Estimated body mass index is 37.47 kg/m as calculated from the following: Height as of 01/30/23: 5' 6 . Weight as of this encounter: 232 lb 1.9 oz. BP: 110/70 Patient's last menstrual period was 09/16/2024. Assessment/Plan ICD-10-CM 1. Third trimester ([facility]) Z34.93 2. 34 weeks gestation of ([facility]) Z3A.34 POCT urinalysis dipstick manually [...] of: Mukul Foy DO documented in this encounterKansas City VA Medical CenterJydrxapiwk32-57-3910 History of Present illness Narrative* Ceasar Li [...] 11/30/2020 23 weeks gestation of ([facility]) 02/26/2025 Elevated blood sugar level [...] note reviewed. Exam conducted with a quality review trainer present. Vitals: Estimated body mass index is [...] of: Ceasar Li NP documented in this encounterKansas City VA Medical CenterLosfzgpblm68-08-0085 History of Present illness Narrative* JOSEPH Bowie [...] 11/30/2020 23 weeks gestation of ([facility]) 02/26/2025 Elevated blood sugar level [...] 1. Third trimester ([facility]) Z34.93 POCT urinalysis dipstick manually resulted 2. 30 weeks gestation of ([facility]) Z3A.30 Return OB: Patient presents today [...] behalf of: JOSEPH Bowie documented in this encounterKansas City VA Medical CenterNwgjmkeube27-49-4928 History of Present illness Narrative* JOSEPH Bowie [...] 11/30/2020 23 weeks gestation of ([facility]) 02/26/2025 Elevated blood sugar level [...] PLAN ICD-10-CM 1. 28 weeks gestation of ([facility]) Z3A.28 POCT urinalysis dipstick manually resulted US OB follow up transabdominal approach US biophysical profile w non stress test 2. Third trimester ([facility]) Z34.93 POCT urinalysis dipstick manually resulted US OB follow up transabdominal approach US biophysical profile w non stress test 3. Dizziness R42 CBC and differential CBC and differential 4. Gestational diabetes mellitus (GDM), antepartum, gestational diabetes method of control unspecified ([facility]) O24.419 US OB follow up transabdominal [...] behalf of: JOSEPH Bowie documented in this encounterKansas City VA Medical CenterHjqptizwvw05-02-6314 History of Present illness Narrative* Mukul Foy [...] 11/30/2020 23 weeks gestation of ([facility]) 02/26/2025 Elevated blood sugar level 02/26/2025 Resolved Ambulatory Problems Diagnosis Date Noted Missed period 01/13/2023 Past Medical History: Diagnosis Date GDM (gestational diabetes mellitus) ([facility]) No family history on file. Social [...] note reviewed. Exam conducted with a quality review trainer present. Vitals: Estimated body mass index is 36.12 kg/m as calculated from the following: Height as of 01/30/23: 5' 6 . Weight as of this encounter: 223 lb 12.8 oz. BP: 100/70 Patient's last menstrual period was 09/16/2024. Assessment/Plan Encounter Diagnosis: ICD-10-CM 1. 25 weeks gestation of ([facility]) Z3A.25 POCT urinalysis dipstick manually resulted 2. Second trimester ([facility]) Z34.92 POCT urinalysis dipstick manually resulted [...] of: Mukul Foy DO documented in this encounterKansas City VA Medical CenterCeijxkgxxr66-04-2016 History of Present illness Narrative* Ceasar Li [...] 11/30/2020 23 weeks gestation of ([facility]) 02/26/2025 Elevated blood sugar level [...] note reviewed. Exam conducted with a quality review trainer present. Vitals: Estimated body mass index is 35.96 kg/m as calculated from the following: Height as of 01/30/23: 5' 6 . Weight as of this encounter: 222 lb 12.8 oz. BP: 110/70 Patient's last menstrual period was 09/16/2024. ASSESSMENT & PLAN ICD-10-CM 1. 23 weeks gestation of ([facility]) Z3A.23 POCT urinalysis dipstick manually resulted pantoprazole [...] of: Mukul Foy DO documented in this encounterKansas City VA Medical CenterNvgaxwvoes38-26-2237 History of Present illness Narrative* JOSEPH Bowie [...] ASSESSMENT & PLAN ICD-10-CM 1. Second trimester ([facility]) Z34.92 metFORMIN XR (Glucophage-XR) 500 MG 24 hr tablet POCT urinalysis dipstick manually resulted 2. 20 weeks gestation of ([facility]) Z3A.20 metFORMIN XR (Glucophage-XR) 500 [...] of: Mukul Foy DO documented in this encounterKansas City VA Medical CenterDwxwvyxuwb84-09-7248 History of Present illness Narrative* Criselda Aguirre [...] note reviewed. Exam conducted with a quality review trainer present. Vitals: Estimated body mass index is 34.19 kg/m as calculated from the following: Height as of 01/30/23: 5' 6 . Weight as of this encounter: 211 lb 12.8 oz. BP: 118/72 Patient's last menstrual period was 09/16/2024. ASSESSMENT & PLAN ICD-10-CM 1. Second trimester ([facility]) Z34.92 Alpha fetoprotein, maternal Alpha fetoprotein, maternal 2. 17 weeks gestation of ([facility]) Z3A.17 Alpha fetoprotein, maternal Alpha fetoprotein, maternal 3. Vaginal discharge N89.8 SURESWAB(R) ADVANCED VAGINITIS PLUS, TMA 4. STD exposure Z20.2 CHLAMYDIA TRACHOMATIS (GENITO/STI) Neisseria gonorrhea DNA probe, direct 5. Screening, , for anatomic survey ([facility]) Z36.89 US OB 14+ weeks anatomy scan 6. Gastroesophageal reflux in ([facility]) O99.619 omeprazole (PriLOSEC) [address] capsule K21.9 7. Gestational diabetes mellitus (GDM), antepartum, gestational diabetes method of control unspecified ([facility]) O24.419 glucose blood test strip Return [...] behalf of: alesha bowie documented in this encounterKansas City VA Medical CenterJaeohpykvu75-89-4808 History of Present illness Narrative* JOSEPH Bowie [...] Documented by JOSEPH Bowie documented in this encounterKansas City VA Medical CenterTnhtczekqf33-90-6959 History of Present illness Narrative* Elizabeth Ware [...] Nurse Note: Patient uncertain of doing the [place] screening. Pt was advised both labs and [...] or undercooked meat, and stay away from [facility]. Patient has also been advised [...] by: Elizabeth Ware MA documented in this encounterKansas City VA Medical CenterQdjsupdhek01-84-7199 History of Present illness Narrative* Elizabeth Ware [...] note reviewed. Exam conducted with a quality review trainer present. Vitals: Estimated body mass index is [...] of: Mukul Foy DO documented in this encounterKansas City VA Medical CenterWfxpnxfbyz92-80-8183 NoteHNO ID: [id number] Author: LANG CARREON APRN.[facility] Service: ? Author Type: Nurse Practitioner Type: Progress Notes Filed: 08/06/2023 10:44 Note Text: Telemedicine Visit - Distance Health Virtual Visit Note I have communicated my name and active licensure. The patient's identity and physical location were verified at the time of this visit. Either the patient or their legal equal opportunity representative has been informed of the risks and benefits of -- and alternatives to -- treatment through a remote evaluation and consents to proceed with the evaluation remotely. Patient seen on virtual platforms, [employer]. Location of patient: [place] History of Presenting Illness: Vinny Downey 22 [...] - Sleep with head elevated due to fusn-njosz-vylu increases cough - Continue Flonase - Flonase: [...] care - All questions answered Lang Carreon APRN.[facility]12-19-2023 NoteUT Electrophysiology Consult Note Reason for [...] recent labs Rajendra Sheffield MD Cardiac Electrophysiology [facility]12-19-2023 NotePatient here for follow up event monitor. Echo was not performed that was ordered at last apt in Feb 2023 by Israel Champion CNP. Does not notice palpitations as often. Denies chest pain, SOB, and lightheadedness. Review of Systems Cardiovascular: Positive for palpitations (less often). All other systems reviewed and are negative.[facility] 03-30-2023 Note-developed anemia s/p -hgb 10.8 per recent labsUnK[facility]09-07-2023 Note- could be related to being , anemia -monitor and echo to rule out cardiac concernUnKettering Health Hamilton 03-30-2023 Note- takes sertraline 50 mg dailyUnKettering Health [facility] 03-30-2023 Note- 30-day event monitor - we will hold off on starting medication until follow-upUnKettering Health Hamilton08-28-2023 NoteNew patient here to establish care. Ref from Dr. Foy for bradycardia. She is 8 weeks . Had ECG last week. Symptoms started after baby was born. She feels palpitations. Did lose a lot of blood with , requiring transfusion. Denies chest pain and SOB. Review of Systems Cardiovascular: Positive for palpitations. Neurological: Positive for headaches. All other systems reviewed and are negative.[facility] 03-20-2023 NoteUT Electrophysiology Consult Note [...] images are attached to (more content not included)...[facility] HospitalEvaluation [facility]* Diagnosis Frequent UTI Urinary tract infection, site not specified documented in this encounter [employer]: evaluation note* Diagnosis Amenorrhea Absence of menstruation documented in this encounter [employer]: evaluation note* Diagnosis Elevated liver enzymes Nonspecific elevation of levels of transaminase or lactic acid dehydrogenase (LDH) Mixed hyperlipidemia documented in this encounter [facility]* Diagnosis Well woman exam with routine gynecological exam Routine gynecological examination documented in this encounter [facility] HealthcareEvaluation note* Diagnosis Missed menses 8 weeks gestation of , unspecified gestational age Encounter for supervision of normal first in first trimester History of miscarriage Personal history of other genital system and obstetric disorders documented in this encounter [facility] HealthcareEvaluation note* Diagnosis Second trimester state, incidental 12 weeks gestation of Subchorionic hematoma in first trimester, single or unspecified fetus Diabetes mellitus screening Screening for diabetes mellitus documented in this encounter [facility] HealthcareEvaluation note* Diagnosis Subchorionic hematoma, antepartum, first trimester, not applicable or unspecified fetus documented in this encounter [facility] note* Diagnosis Second trimester ([facility]) state, incidental 17 weeks gestation of ([facility]) Vaginal discharge Leukorrhea, not specified as infective STD exposure Screening, , for anatomic survey ([facility]) Encounter for anatomic survey Gastroesophageal reflux in ([facility]) Gestational diabetes mellitus (GDM), antepartum, gestational diabetes method of control unspecified([facility]) documented in this encounter [facility] HealthcareEvaluation note* [...] DOPPLER US OB TRANSVAGINAL Mukul Foy MD [address] [place] [address] Phone: tel: Referral IDStatusReasonStart DateExpiration DateVisits RequestedVisits [id number] [facility] Assessments Diagnosis Screening for cervical cancer Screening for malignant neoplasm of the cervix Encounter for annual routine gynecological examination Diagnosis Encounter for screening for HIV Other fatigue Wellness examination Advance Directives TypeDate RecordedPatient RepresentativeExplanationAdvance Directives and Living WillPower of AttorneyTypeDate RecordedPatient RepresentativeExplanationACP- Advance DirectiveACP-Power of AttorneyTypeDate RecordedPatient 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 ExplanationACP-Advance DirectiveACP-Power of Industrial Maintenance 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 Summary Purpose Family History No Family History Records FoundNo Family History Records FoundNo Family History Records FoundNo Family History Records FoundNo Family History Records FoundNo Family History Records FoundNo Family History Records Found Reason for Referral StatusReasonSpecialtyDiagnoses / ProceduresReferred By ContactReferred To ContactClosedRadiology Diagnoses Frequent UTI Procedures US RENAL COMPLETE Lorena Ricks, FURNACE COOLER - REFINISH TECHNICIAN [address] [place] [address] Additional Source Comments INFORMATION SOURCE (unrecogn ized section and content) DATE CREATED AUTHOR 10/14/2020 [facility] DATE CREATED AUTHOR AUTHOR'S ORGANIZ ATION 09/26/2021 [facility] DATE CREATED AUTHOR AUTHOR'S ORGANIZ ATION 12/30/2022 [facility] DATE CREATED AUTHOR AUTHOR'S ORGANIZ ATION 08/03/2023 [facility] DATE CREATED AUTHOR AUTHOR'S ORGANIZ ATION 08/07/2023 [facility] DATE CREATED AUTHOR AUTHOR'S ORGANIZ ATION 01/09/2025 [facility] DATE CREATED AUTHOR AUTHOR'S ORGANIZ ATION 06/03/2025 [facility] EPIC Reason for Visit (unrecogniz ed section and content) StatusReasonSpecialtyDiagnoses / ProceduresReferred By ContactReferred To ContactClosedRadiology Diagnoses Frequent UTI Procedures US RENAL COMPLETE Lorena Ricks, FURNACE COOLER - REFINISH TECHNICIAN [address] [place] [address] ReasonCommentsGynecologic ExamReasonCommentsAmenorrheaReasonCommentsRoutine VisitReasonCommentsRoutine VisitSTI Screening Care Teams (unrecognized sec tion and content) Team MemberRelationshipSpecialtyStart DateEnd Date Ynes Rodriguez, FURNACE COOLER - REFINISH TECHNICIAN [address] [place] [address] PCP - GeneralFamily Nurse Eosqawcepyfu23/12/20Team MemberRelationshipSpecialty Start DateEnd Date Ynes Rodriguez, FURNACE COOLER - REFINISH TECHNICIAN [address] [facility] [place] [address] PCP - GeneralFamily Nurse Zyvaeoruqmgn67/12/20Team MemberRelationshipSpecialty Start DateEnd Date Ynes Rodriguez, FURNACE COOLER - REFINISH TECHNICIAN [address] [place] [address] PCP - GeneralFamily Nurse Practitioner08/02/22Team MemberRelationshipSpecialty Start DateEnd Date Ynes Rodriguez, FURNACE COOLER - REFINISH TECHNICIAN [address] [place] [address] PCP - GeneralFamily Nurse Practitioner08/02/22Team MemberRelationshipSpecialty Start DateEnd Date Ynes Rodriguez, FURNACE COOLER - REFINISH TECHNICIAN [address] [place] [address] PCP - GeneralFamily Nurse Practitioner08/02/22 FOR RECORDS [...] BE BASED ON THE PRIMARY CLINICAL RECORDS. [facility] Gydget [facility]. provides no warranty or guarantee [id number] the accuracy [phone] completeness of information in this [id number]
[2025-06-17 11:49] VITALS: BP 119/82; PULSE 72; TEMP 36.6; O2SAT 96
== END 2025-06-17 11:59 | disposition home or self-care (01) ==
PROVIDERS: PCP Nurse Practitioner Women's Health; Visit Provider Obstetrics & Gynecology
DX: Z39.2 Encounter for routine postpartum follow-up (principal)